=== PATIENT | female | born 1945 | race Caucasian/White ===

== ENCOUNTER 2023-06-19 07:09 | Observation (INO) | payer MEDICARE, OTHER, SELFPAY ==
[2023-06-19] VITALS (24 sets, daily range): BP systolic 120–158; BP diastolic 69–89; PULSE 53–73; RESP 10–21; TEMP 36.2–36.7; O2SAT 94–99; BMI 31.4; BMI 29.5
--- NOTE | 2023-06-19 07:27 | XR_ITS ---
[facility] [place] [id number] Patient Name: SON LONDON MRN: [id number] date: 1945 Sex: F Assigned Patient Location: ER Current Patient Location: ED.MAIN Accession/Order Number: [id number] Exam Date: 06/19/2023 07:34 Report Date: 06/19/2023 08:01 At the request of: ISIDRA PAUL Procedure: XR chest 1V XR chest 1V, 06/19/2023 7:34 AM EST, [place]001 INDICATION: SOB COMPARISON: None TECHNIQUE: Frontal view of the chest obtained. FINDINGS: The heart is borderline enlarged. The aorta and mediastinum appear unremarkable. There is mild central pulmonary vascular congestion. The lungs are clear. There is no evidence of pneumothorax or pleural effusion. The osseous structures appear intact. XR/XR chest 1V IMPRESSION: There is borderline cardiomegaly and mild central pulmonary vascular congestion. No focal infiltrate or consolidation is seen. Electronically authenticated by: BRIANA MOCK Date: 06/19/2023 08:01
--- NOTE | 2023-06-19 07:27 | ECG_ITS ---
[facility] Test Date: 2023-06-19 Pat Name: SON LONDON Department: Room: - Gender: Female Seismograph Computer: : 1945 Requested By: PAT NEWELL Order Number: [id number] Reading MD: PAT NEWELL Measurements Intervals [place] Rate: 59 P: 72 [place]: 164 QRS: 77 QRSD: 76 T: 80 QT: 404 QTc: 403 Interpretive Statements 1100 Sinus rhythm Non-Specific T wave inversion in aVL 9110 normal ECG No previous ECG available for comparison Electronically Signed On 06-20-2023 6:21:43 EST by PAT NEWELL
--- NOTE | 2023-06-19 07:27 | ED.SOB1 ---
HPI - SOB/Dyspnea General Chief Complaint: Shortness of Breath/Dyspnea Stated Complaint: SOB Time Seen by Provider: 06/19/23 07:16 Source: patient Mode of arrival: walk-in Limitations: no limitations History of Present Illness HPI Narrative: 78-year-old female presents for shortness of breath. It began last night. She had a doctor's appointment for a separate issue yesterday, shoulder arthritis. Subsequent to that appointment she developed the shortness of breath. She feels better sitting upright and if she lays down flat she gets more short of breath. She doesn't have chest pain but states that this is how she felt before she needed to stents three years ago. No fever or productive cough. She always has sinus drainage, for over thirty years. No leg swelling and no history of congestive heart failure. Related Data Home Medications Medication Instructions Recorded Confirmed aspirin 81 mg capsule 81 mg PO DAILY 06/19/23 06/19/23 atorvastatin 40 mg tablet 40 mg PO DAILY 06/19/23 06/19/23 escitalopram oxalate 10 mg tablet 10 mg PO DAILY 06/19/23 06/19/23 (Lexapro) furosemide 20 mg tablet 20 mg PO DAILY 06/19/23 06/19/23 hydralazine 25 mg tablet 25 mg PO BID 06/19/23 06/19/23 loperamide 2 mg capsule 2 mg PO DAILY 06/19/23 06/19/23 (Anti-Diarrheal (loperamide)) losartan 100 mg tablet (Cozaar) 100 mg PO DAILY 06/19/23 06/19/23 pantoprazole 40 mg tablet,delayed 40 mg PO DAILY 06/19/23 06/19/23 release potassium chloride 20 mEq oral 20 meq PO DAILY 06/19/23 06/19/23 packet (Klor-Con) vitamin A-vitamin C-vit E-min 1 tab PO DAILY 06/19/23 06/19/23 tablet (Vision tablet) Allergies Allergy/AdvReac Type Severity Reaction Status Date / Time SERINA Inhibitors Allergy Severe Verified 06/19/23 07:21 diltiazem Allergy Severe shortness Verified 06/19/23 07:21 of breath gabapentin [From Neurontin] Allergy Severe Verified 06/19/23 07:21 metoprolol Allergy Severe Verified 06/19/23 07:21 amlodipine AdvReac Severe swelling Verified 06/19/23 07:21 morphine AdvReac Severe Nausea Verified 06/19/23 07:21 Review of Systems ROS Narrative A ten point review of systems is negative except as noted above. Exam Narrative Exam Narrative: Nurses note and vital signs reviewed and patient is not hypoxic. General: The patient appears well and in no apparent distress. Patient is resting comfortably on cart. Skin: Warm, dry, no pallor noted. There is no rash noted. Head: Normocephalic, atraumatic Eye: Normal conjunctiva, no drainage Ears, Nose, Mouth, and Throat: oral mucosa is moist. Nares patent. Cardiovascular: Regular Rate and Rhythm Respiratory: Patient is in no distress, no accessory muscle use, lungs are clear to auscultation, no wheezing, rales or rhonchi, good air movement present Back: non-tender GI: soft and nontender Musculoskeletal: The patient has no evidence of calf tenderness, no pitting edema, symmetrical pulses noted bilaterally Neurological: A&O, normal speech Psychiatric: Cooperative Constitutional Vital Signs, click to edit/add: Last Vital Signs Temp 98.0 F 06/19/23 07:14 Pulse 66 06/19/23 07:14 Resp 18 06/19/23 07:14 BP 158/69 H 06/19/23 07:14 Pulse Ox 98 06/19/23 07:14 O2 Del Method Room Air 06/19/23 07:14 Course Vital Signs Vital signs: Vital Signs Temperature 98.0 F 06/19/23 07:14 Pulse Rate 66 06/19/23 07:14 Respiratory Rate 18 06/19/23 07:14 Blood Pressure 158/69 H 06/19/23 07:14 Pulse Oximetry 98 06/19/23 07:14 Oxygen Delivery Method Room Air 06/19/23 07:14 Temperature 98.0 F 06/19/23 07:14 Pulse Rate 66 06/19/23 07:14 Respiratory Rate 18 06/19/23 07:14 Blood Pressure 158/69 H 06/19/23 07:14 Pulse Oximetry 98 06/19/23 07:14 Oxygen Delivery Method Room Air 06/19/23 07:14 MDM - SOB/Dyspnea MDM Narrative Medical decision making narrative: d-dimmer, troponin, BNP are all negative. Case discussed with her PCP, Dr. Graves, as well as Dr. Avila from cardiology and we will admit the patient here for observation and further workup. Treatment diagnosis and follow-up were discussed with the patient. Differential Diagnosis Differential diagnosis: Likely congestive heart failure, community acquired pneumonia, pulmonary embolism and other (anginal equivalent, myocardial infarction, pneumothorax) Lab Data Attestation: I reviewed the patient's lab results. Labs: Lab Results 06/19/23 06/19/23 Range/Units 07:45 07:50 WBC 9.6 (4.0-11.0) 10^3/uL RBC 4.03 L (4.20-5.40) 10^6/uL Hgb 12.6 (12.0-16.0) g/dL Hct 38.3 (36.0-48.0) % MCV 95.0 (81.0-99.0) fL MCH 31.3 (26.7-34.0) pg MCHC 32.9 (29.9-35.2) g/dL RDW 13.0 (11.0-15.0) % Plt Count 189 (150-450) 10^3/uL MPV 11.3 (9.5-13.5) fL Neut % (Auto) 75.3 H (43.0-75.0) % Lymph % (Auto) 16.9 L (20.5-60.0) % Mccreary % (Auto) 7.4 (1.7-12.0) % Eos % (Auto) 0.0 L (0.9-7.0) % Baso % (Auto) 0.2 (0.2-2.0) % Neut # (Auto) 7.2 H (1.4-6.5) 10^3/uL Lymph # (Auto) 1.6 (1.2-3.8) 10^3/uL Mccreary # (Auto) 0.7 (0.3-0.8) 10^3/uL Eos # (Auto) 0.0 (0.0-0.7) 10^3/uL Baso # (Auto) 0.0 (0.0-0.1) 10^3/uL Abs Immat Gran (auto) 0.02 (0.00-0.03) 10^3/uL Imm/Tot Granulo (auto) 0.2 (0.0-0.5) % D-Dimer 0.42 (<=0.59) mg/L FEU Sodium 139 (136-145) mmol/L Potassium 4.5 (3.5-5.1) mmol/L Chloride 104 (98-107) mmol/L Carbon Dioxide 24.6 (21.0-32.0) mmol/L Anion Gap 14.9 BUN 32.0 H (7.0-18.0) mg/dL Creatinine 1.35 H (0.55-1.02) mg/dL Est GFR ( Amer) 46 L (>=60) Est GFR (Non-Af Amer) 38 L (>=60) BUN/Creatinine Ratio 23.7 Glucose 111 H (74-106) mg/dL Calcium 9.1 (8.5-10.1) mg/dL Troponin I High Sens 5.5 (4.0-51.3) pg/mL NT-Pro-B Natriuret Pep 1700.0 (<=1800.0) pg/mL SARS-CoV-2 (PCR) Negative (NEGATIVE) Imaging Data Chest x-ray: Radiologist's impression: Procedure: XR chest 1V XR chest 1V, 06/19/2023 7:34 AM EST, OH001 INDICATION: SOB COMPARISON: None TECHNIQUE: Frontal view of the chest obtained. FINDINGS: The heart is borderline enlarged. The aorta and mediastinum appear unremarkable. There is mild central pulmonary vascular congestion. The lungs are clear. There is no evidence of pneumothorax or pleural effusion. The osseous structures appear intact. IMPRESSION: There is borderline cardiomegaly and mild central pulmonary vascular congestion. No focal infiltrate or consolidation is seen. Electronically authenticated by: BRIANA MOCK Date: 06/19/2023 08:01 ECG Data Attestation: I personally reviewed and interpreted this ECG as follows: (EKG on my interpretation shows normal sinus rhythm with a rate of 59 and no acute findings.) Discharge Plan Discharge Chief Complaint: Shortness of Breath/Dyspnea Clinical Impression: Dyspnea Patient Disposition: Admitted as Observation Time of Disposition Decision: 09:21 Condition: Good
[2023-06-19 07:55] LABS: Basophils Percent Auto 0.2 % (0.2-2.0); Hematocrit 38.3 % (36.0-48.0); Hemoglobin 12.6 g/dL (12.0-16.0); Immature Granulocytes Abs Auto 0.02 10^3/uL (0.00-0.03); Immature Granulocytes Pct Auto 0.2 % (0.0-0.5); Lymphocytes Absolute Auto 1.6 10^3/uL (1.2-3.8); Lymphocytes Percent Auto 16.9 % (20.5-60.0); Mean Corpuscular HGB Conc 32.9 g/dL (29.9-35.2); Mean Corpuscular Hemoglobin 31.3 pg (26.7-34.0); Mean Platelet Volume 11.3 fL (9.5-13.5); Monocytes Absolute Auto 0.7 10^3/uL (0.3-0.8); Monocytes Percent Auto 7.4 % (1.7-12.0); Neutrophils Absolute Auto 7.2 10^3/uL (1.4-6.5); Neutrophils Percent Auto 75.3 % (43.0-75.0); Platelet Count 189 10^3/uL (150-450); Red Blood Count 4.03 10^6/uL (4.20-5.40); White Blood Count 9.6 10^3/uL (4.0-11.0)
[2023-06-19 08:09] LABS: D Dimer 0.42 mg/L FEU (<=0.59)
[2023-06-19 08:14] LABS: SARS-CoV-2 Ag NEGATIVE (NEGATIVE)
[2023-06-19 08:36] LABS: Anion Gap 14.9; BUN Creatinine Ratio 23.7; Calcium 9.1 mg/dL (8.5-10.1); Carbon Dioxide 24.6 mmol/L (21.0-32.0); Chloride 104 mmol/L (98-107); Estimated GFR (African America 46 (>=60); Estimated GFR (Non-African Ame 38 (>=60); Glucose 111 mg/dL (74-106); Potassium 4.5 mmol/L (3.5-5.1); Sodium 139 mmol/L (136-145); Troponin I High Sensitivity 5.5 pg/mL (4.0-51.3)
[2023-06-19 11:03] LABS: SARS-CoV-2 NAA NOT DETECTED (NOT DETECTE)
--- NOTE | 2023-06-19 11:29 | CA_ITS ---
Patient Name: SON WILEY MR#: [id number] : 1945 Exam Date: 06/19/2023 Ordering Doctor: DR Demarco Graves . ECHOCARDIOGRAM REPORT PROCEDURE: CA ECHO DOPPLER COMPLETE INDICATIONS: Dyspnea, PTCA, hypertension COMPARISON: None. DESCRIPTION: COMPLETE ECHOCARDIOGRAM Real-time transthoracic echocardiography with 2D, M-mode, spectral and color flow Doppler performed. QUALITY: Technical quality was good. LEFT VENTRICLE: Normal chamber size. Thickened septal wall. LV EF: Global left ventricular systolic function is normal; visually estimated ejection fraction is 60 to 65%. No significant wall motion abnormalities. DIASTOLIC: Grade II diastolic dysfunction. ATRIAL SEPTUM: Visually appears intact. LEFT ATRIUM: Moderate dilatation. RIGHT ATRIUM: Normal chamber size. RIGHT VENTRICLE: Normal chamber size. Normal right ventricular systolic function. TRICUSPID VALVE: Normal mobility and thickness. Mild regurgitation. Doppler studies reveal moderately (45-60) elevated right sided pressures. RVSP 59 mmHg MITRAL VALVE: Mildly thickened with normal mobility. No evidence of mitral valve stenosis. Moderate to severe mitral regurgitation. AORTIC VALVE: Normal trileaflet appearance. No visible sclerosis. Normal leaflet mobility. No evidence of aortic valve stenosis. Mild aortic regurgitation. AORTIC ROOT: Normal diameter and appearance. PULMONIC VALVE: Normal thickness and mobility. No stenosis. Trivial regurgitation. PERICARDIUM: No evidence of pericardial effusion. IVC: IVC is dilated (2.4 cm) with no collapse. CONCLUSION: 1. Global left ventricular systolic function is normal; visually estimated ejection fraction is 60 to 65% 2. Right ventricle is normal in size and systolic function 3. Grade 2, moderate diastolic dysfunction 4. The left atrium is moderately dilated 5. Mild tricuspid regurgitation 6. Moderately elevated right ventricular systolic pressure; RVSP 59 mmHg 7. Moderate to severe mitral regurgitation 8. Mild aortic regurgitation Adult Echocardiography Procedure Report Left Ventricle LVEDD (3.7 - 5.6 cm): 3.77 cm LVESD (2.2 - 4.0 cm): 2.51 cm LVIVS thickness (0.6 - 1.2 cm): 1.59 cm LVPW thickness (0.5 - 1.0 cm): 0.90 cm e': 0.07 m/s E - e': 18.63 LVOT Max Gradient: 4.25 mm[Hg] LVOT Area (cm2): 1.03 m/s Peak Velocity (LVOT): 1.03 m/s Mean Velocity (LVOT): 0.70 m/s LVOT Diameter 1.88 cm Left Atrium LA Volume Index (2D A2C): 41.72 ml/m2 Left Atrium Systolic Dimension: 4.02 cm Mitral Valve MV E to A Ratio: 1.47 Mitral Valve A-Wave Peak Velocity: 0.86 m/s Mitral Valve E-Wave Peak Velocity: 1.27 m/s Right Ventricle Aorta AO Root Diam: 3.38 cm Ascending Ao Diam: 2.88 cm Aortic Valve AoV Area (Peak Eric): 2.19 cm2, 2.19 cm2 AoV Area (VTI): 2.13 cm2, 2.13 cm2 Peak Velocity(Antegrade Flow): 1.30 m/s Peak Gradient(Antegrade Flow): 6.75 mm[Hg] Mean Velocity(Antegrade Flow): 0.91 m/s Mean Gradient(Antegrade Flow): 3.70 mm[Hg] Velocity Time Integral: 31.51 cm Tricuspid Valve Peak Velocity (Regurgitant Flow): 2.47 m/s, 3.32 m/s Pulmonic Valve Peak Velocity: 0.73 m/s Peak Gradient: 2.17 mm[Hg], 2.11 mm[Hg] Right Atrium Right Atrium Systolic Pressure: 23.27 ml, 23.27 ml Dictated by: Rebeka Johnson M.D. on 06/19/2023 at 14:06 Approved by: Rebeka Johnson M.D. on 06/19/2023 at 14:10
[2023-06-19 12:35] LABS: Magnesium 1.9 mg/dL (1.8-2.4); Troponin I High Sensitivity 5.8 pg/mL (4.0-51.3)
[2023-06-19 12:47] LABS: Free T3 1.63 pg/mL (2.18-3.98); Thyroid Stimulating Hormone 1.016 uIU/mL (0.358-3.740)
[2023-06-19] MEDS: BENZONATATE 100 MG CAPSULE 200 MG PO ×2 (14:39→21:02)
[2023-06-19] MEDS: PANTOPRAZOLE SODIUM 40 MG VIAL IV (14:39)
[2023-06-19 14:58] LABS: Troponin I High Sensitivity 6.3 pg/mL (4.0-51.3)
--- NOTE | 2023-06-19 17:48 | P.HP_ITS ---
H&P: HPI History of Present Illness Chief complaint: SOB, DYSPNEA Narrative: Patient presented to the emergency with increasing shortness of breath. Initial work-up was unremarkable but patient did state her symptoms felt just like when she had her stents placed. Case was discussed with cardiology at [facility] who recommended patient be observed overnight for serial cardiac markers, echocardiogram, possible stress test as if available. Patient admitted to ICU per protocol Review of Systems ROS Status of ROS 10 or more systems reviewed and unremarkable except as noted in history and below Meds Home Medications and Allergies Home Medications Medication Instructions Recorded Confirmed Type aspirin 81 mg capsule 81 mg PO DAILY 06/19/23 06/19/23 History atorvastatin 40 mg tablet 40 mg PO DAILY 06/19/23 06/19/23 History escitalopram oxalate 10 mg tablet 10 mg PO DAILY 06/19/23 06/19/23 History (Lexapro) furosemide 20 mg tablet 20 mg PO DAILY 06/19/23 06/19/23 History hydralazine 25 mg tablet 25 mg PO BID 06/19/23 06/19/23 History loperamide 2 mg capsule 2 mg PO DAILY 06/19/23 06/19/23 History (Anti-Diarrheal (loperamide)) losartan 100 mg tablet (Cozaar) 100 mg PO DAILY 06/19/23 06/19/23 History pantoprazole 40 mg tablet,delayed 40 mg PO DAILY 06/19/23 06/19/23 History release potassium chloride 20 mEq oral 20 meq PO DAILY 06/19/23 06/19/23 History packet (Klor-Con) vitamin A-vitamin C-vit E-min 1 tab PO DAILY 06/19/23 06/19/23 History tablet (Vision tablet) Allergies Allergy/AdvReac Type Severity Reaction Status Date / Time SERINA Inhibitors Allergy Severe Verified 06/19/23 07:21 diltiazem Allergy Severe shortness Verified 06/19/23 07:21 of breath gabapentin [From Neurontin] Allergy Severe Verified 06/19/23 07:21 metoprolol Allergy Severe Verified 06/19/23 07:21 amlodipine AdvReac Severe swelling Verified 06/19/23 07:21 morphine AdvReac Severe Nausea Verified 06/19/23 07:21 Exam Constitutional Vital Signs, click to edit/add: Last Vital Signs Temp 97.2 F L 06/19/23 11: Pulse 73 06/19/23 16:00 Resp 18 06/19/23 16:00 BP 137/89 06/19/23 16:00 Pulse Ox 96 06/19/23 16:00 O2 Del Method Room Air 06/19/23 16:00 Documenting provider has reviewed patient's vital signs: yes Common normals: no apparent distress HENMA Common normals: normocephalic Chest Common normals: inspection of chest normal Respiratory Common normals: normal respiratory effort, no retractions and clear to auscultation bilaterally Cardio Common normals: regular rhythm; irregular rate Rate: bradycardic GI Common normals: Normal to inspection, nondistended, normoactive bowel sounds present Results Labs Labs: Short CBC 06/19/23 Range/Units 07:45 WBC 9.6 (4.0-11.0) 10^3/uL Hgb 12.6 (12.0-16.0) g/dL Hct 38.3 (36.0-48.0) % Plt Count 189 (150-450) 10^3/uL BMP 06/19/23 07:50 Sodium 139 Potassium 4.5 Chloride 104 Carbon Dioxide 24.6 BUN 32.0 H Creatinine 1.35 H Glucose 111 H Calcium 9.1 Assessment and Plan Assessment and Plan (1) Dyspnea: Plan Controlled hypertension, shortness of breath, sinus bradycardia secondary to possible angina, unstable-check echocardiogram, cardiac markers, repeat cardiac markers in a.m., stress test if possible tomorrow in a.m. Hypothyroidism-T3 is low so we will supplement Hypertension-add Imdur, held off on beta-blockers secondary to already bradycardic. Possible mild heart failure based on chest x-ray findings of the lungs are fairly clear, BNP has increased. Give oral Lasix today repeat in a.m. Maintain patient observation status, change patient to inpatient status based on testing if necessary.
[2023-06-19] MEDS: ISOSORBIDE MONONITRATE 30 MG TAB.ER.24H PO (18:17)
[2023-06-19] MEDS: LIOTHYRONINE SODIUM 5 MCG TABLET PO (18:18)
[2023-06-19] MEDS: HYDRALAZINE HCL 25 MG TABLET PO (21:02)
[2023-06-19] MEDS: PROSTAT 15 GM PROTEIN/100 CAL 30 ML LIQUID PACKET PO (21:02)
[2023-06-20 00:05] VITALS: BP 126/89; PULSE 52; RESP 18; TEMP 36.6; O2SAT 95
[2023-06-20 00:12] VITALS: PULSE 59; RESP 18
[2023-06-20] MEDS: ACETAMINOPHEN 500 MG TABLET 1000 MG PO (02:07)
[2023-06-20 04:09] VITALS: PULSE 59; RESP 18
[2023-06-20 04:20] VITALS: O2SAT 95
[2023-06-20 04:23] LABS: Basophils Percent Auto 0.1 % (0.2-2.0); Hemoglobin 11.5 g/dL (12.0-16.0); Immature Granulocytes Abs Auto 0.04 10^3/uL (0.00-0.03); Immature Granulocytes Pct Auto 0.5 % (0.0-0.5); Lymphocytes Absolute Auto 1.5 10^3/uL (1.2-3.8); Mean Corpuscular HGB Conc 32.9 g/dL (29.9-35.2); Mean Corpuscular Hemoglobin 31.9 pg (26.7-34.0); Mean Corpuscular Volume 97.2 fL (81.0-99.0); Monocytes Absolute Auto 0.8 10^3/uL (0.3-0.8); Monocytes Percent Auto 9.8 % (1.7-12.0); Neutrophils Absolute Auto 6.3 10^3/uL (1.4-6.5); Neutrophils Percent Auto 72.6 % (43.0-75.0); Platelet Count 194 10^3/uL (150-450); Red Cell Distribution Width 13.2 % (11.0-15.0); White Blood Count 8.6 10^3/uL (4.0-11.0)
[2023-06-20 04:54] LABS: Anion Gap 9.7; Calcium 9.1 mg/dL (8.5-10.1); Chloride 103 mmol/L (98-107); Estimated GFR (African America 41 (>=60); Estimated GFR (Non-African Ame 34 (>=60); Glucose 133 mg/dL (74-106); Potassium 4.7 mmol/L (3.5-5.1); Sodium 134 mmol/L (136-145)
[2023-06-20 04:55] LABS: Troponin I High Sensitivity 5.1 pg/mL (4.0-51.3)
[2023-06-20 05:14] VITALS: BP 115/62; PULSE 58; TEMP 36.6; O2SAT 94
[2023-06-20] MEDS: BENZONATATE 100 MG CAPSULE 200 MG PO (06:19)
--- NOTE | 2023-06-20 07:34 | P.DS_ITS ---
DS: Providers Provider Date of admission: 06/19/23 09:18 Primary care physician: Demarco Graves MD Consults: 06/19/23 11:29 Consult to Cardiology Routine Reason for consultation: cad Has provider been notified: No DS: Diagnosis Discharge Diagnosis (1) Dyspnea: DS: Summary Hospital Course Hospital Course: Patient was seen and evaluated in the emergency room with increasing shortness of breath. She does describe that sensation in her chest similar to when she had her previous cardiac stents placed. No other changes in medications. Initial work-up in ER was unremarkable. With her significant history of coronary artery disease and sensation similar to previous episode she was admitted overnight for observation. Cardiac markers with high-sensitivity troponin showed no elevation. Echocardiogram shows mitral regurgitation with a good ejection fraction. She had no further episodes while she was in the hospital. She was placed on Imdur. Only other significant finding was low T3. She was started on Cytomel. At this point she feels back to her normal self. We will echocardiogram being unremarkable other than the mitral regurgitation we will send patient to home today with plan for seeing me in the office next week for an outpatient stress test. Medications see list. Time Spent with Patient Time attestation: Total time spent providing and/or coordinating discharge services: Exam Constitutional Vital Signs, click to edit/add: Last Vital Signs Temp 98 F 06/20/23 05:14 Pulse 58 L 06/20/23 05:14 Resp 18 06/20/23 04:09 BP 115/62 06/20/23 05:14 Pulse Ox 94 L 06/20/23 05:14 O2 Del Method Room Air 06/20/23 05:14 Documenting provider has reviewed patient's vital signs: yes Common normals: no apparent distress [facility] Common normals: normocephalic Chest Common normals: inspection of chest normal Respiratory Common normals: normal respiratory effort, no retractions and clear to auscultation bilaterally Cardio Common normals: regular rhythm; irregular rate Rate: bradycardic GI Common normals: Normal to inspection, nondistended, normoactive bowel sounds present DS: Data Data Completed and Pending Labs on day of discharge: Labs from last 24 hours 06/20/23 06/19/23 06/19/23 04:10 14:35 12:02 WBC 8.6 RBC 3.60 L Hgb 11.5 L Hct 35.0 L MCV 97.2 MCH 31.9 MCHC 32.9 RDW 13.2 Plt Count 194 MPV 11.0 Neut % (Auto) 72.6 Lymph % (Auto) 17.0 L [place] % (Auto) 9.8 Eos % (Auto) 0.0 L Baso % (Auto) 0.1 L Neut # (Auto) 6.3 Lymph # (Auto) 1.5 [place] # (Auto) 0.8 Eos # (Auto) 0.0 Baso # (Auto) 0.0 Abs Immat Gran (auto) 0.04 H Imm/Tot Granulo (auto) 0.5 D-Dimer Sodium 134 L Potassium 4.7 Chloride 103 Carbon Dioxide 26.0 Anion Gap 9.7 BUN 33.0 H Creatinine 1.50 H Est GFR ( Amer) 41 L Est GFR (Non-Af Amer) 34 L BUN/Creatinine Ratio 22.0 Glucose 133 H Calcium 9.1 Magnesium 1.9 Troponin I High Sens 5.1 6.3 5.8 NT-Pro-B Natriuret Pep 1998.0 H* 1998.0 H* TSH 1.016 Thyroxine (T4) 8.30 Free T3 1.63 L SARS-CoV-2 (PCR) SARS-CoV-2 RNA (ERICK) 06/19/23 06/19/23 07:50 07:45 WBC 9.6 RBC 4.03 L Hgb 12.6 Hct 38.3 MCV 95.0 MCH 31.3 MCHC 32.9 RDW 13.0 Plt Count 189 MPV 11.3 Neut % (Auto) 75.3 H Lymph % (Auto) 16.9 L [place] % (Auto) 7.4 Eos % (Auto) 0.0 L Baso % (Auto) 0.2 Neut # (Auto) 7.2 H Lymph # (Auto) 1.6 [place] # (Auto) 0.7 Eos # (Auto) 0.0 Baso # (Auto) 0.0 Abs Immat Gran (auto) 0.02 Imm/Tot Granulo (auto) 0.2 D-Dimer 0.42 Sodium 139 Potassium 4.5 Chloride 104 Carbon Dioxide 24.6 Anion Gap 14.9 BUN 32.0 H Creatinine 1.35 H Est GFR ( Amer) 46 L Est GFR (Non-Af Amer) 38 L BUN/Creatinine Ratio 23.7 Glucose 111 H Calcium 9.1 Magnesium Troponin I High Sens 5.5 NT-Pro-B Natriuret Pep 1700.0 TSH Thyroxine (T4) Free T3 SARS-CoV-2 (PCR) Negative SARS-CoV-2 RNA (ERICK) Not detected Discharge Plan Discharge Disposition: Home, Self-Care Condition: Good Discharge Medications: New isosorbide mononitrate 30 mg Tablet Extended Release 24 Hr 30 mg PO Q24H Qty: 30 11RF liothyronine 5 mcg Tablet 5 mcg PO QD Qty: 30 11RF benzonatate 200 mg capsule 200 mg PO TID PRN (Reason: cough) Qty: 60 11RF Continued losartan [Cozaar] 100 mg tablet 100 mg PO DAILY pantoprazole 40 mg tablet,delayed release (DR/EC) 40 mg PO DAILY aspirin 81 mg capsule 81 mg PO DAILY hydralazine 25 mg tablet 25 mg PO BID loperamide [Anti-Diarrheal (loperamide)] 2 mg capsule 2 mg PO DAILY escitalopram oxalate [Lexapro] 10 mg tablet 10 mg PO DAILY atorvastatin 40 mg tablet 40 mg PO DAILY Vision Tablet 1 tab PO DAILY Discontinued furosemide 20 mg tablet 20 mg PO DAILY potassium chloride [Klor-Con] 20 mEq packet 20 meq PO DAILY Activity: increase activity as tolerated Diet: advance to your usual diet Patient Instructions: Isosorbide Mononitrate (By mouth) (Imdur, Imdur ER, Ismo), Liothyronine (By mouth), Coronary Artery Disease (DC), Dyspnea (DC) Forms: Portal Instructions
[2023-06-20] MEDS: LOSARTAN POTASSIUM 50 MG TABLET 100 MG PO (08:37)
[2023-06-20] MEDS: ATORVASTATIN CALCIUM 40 MG TABLET PO (08:37)
[2023-06-20] MEDS: ASPIRIN 81 MG TAB.CHEW PO (08:37)
[2023-06-20] MEDS: ESCITALOPRAM 10 MG TABLET PO (08:37)
[2023-06-20] MEDS: FUROSEMIDE 20 MG TABLET PO (08:37)
[2023-06-20] MEDS: HYDRALAZINE HCL 25 MG TABLET PO (08:37)
[2023-06-20] MEDS: VITS A,C,E/LUTEIN/MINERALS 1 TABLET 1 TAB PO (08:37)
[2023-06-20] MEDS: POTASSIUM CHLORIDE 10 MEQ ER TABLET 20 MEQ PO (08:37)
[2023-06-20] MEDS: LIOTHYRONINE SODIUM 5 MCG TABLET PO (08:37)
[2023-06-20] MEDS: LOPERAMIDE HCL 2 MG CAPSULE PO (08:37)
[2023-06-20 08:39] VITALS: BP 117/61; PULSE 58; RESP 18; O2SAT 96
[2023-06-20] MEDS: PNEUMOCOCCAL 23 VACCINE 25 MCG/0.5 ML SYRINGE IM (09:33)
== END 2023-06-20 10:13 | disposition home or self-care (01) ==
LOC: ER 10:03 → ICU 10:11
PROVIDERS: Admitting Provider Family Medicine; Emergency Provider Emergency Medicine; PCP Family Medicine; Visit Provider Family Medicine
DX: R06.00 Dyspnea, unspecified (principal); R00.1 Bradycardia, unspecified; I10 Essential (primary) hypertension; E03.9 Hypothyroidism, unspecified; Z79.82 Long term (current) use of aspirin; I25.10 Atherosclerotic heart disease of native coronary artery without angina pectoris; Z95.5 Presence of coronary angioplasty implant and graft; Z79.899 Other long term (current) drug therapy; Z20.822 Contact with and (suspected) exposure to COVID-19; Z23 Encounter for immunization
CPT/HCPCS: 36415; 71045; 80048; 83735; 83880; 84436; 84443; 84481; 84484; 85025; 85378; 87635; 87811; 90662; 90732; 93005; 93306; 94667; 94761; 96374; 99285; G0008; G0009; G0378

== ENCOUNTER 2023-07-09 16:25 | Outpatient (RCR) | payer MEDICARE, OTHER, SELFPAY | END 2023-07-10 15:10 | disposition home or self-care (01) | LOC: PT 16:25 | PROVIDERS: PCP Family Medicine; Visit Provider Family Medicine | DX: R42 Dizziness and giddiness (principal) | CPT/HCPCS: 97112; 97162 ==

== ENCOUNTER 2023-07-14 07:25 | Outpatient (OUT) | payer MEDICARE, OTHER, SELFPAY ==
--- NOTE | 2023-07-14 | NM_ITS ---
Patient Name: SON WILEY MR#: [id number] : 1945 Exam Date: 07/14/2023 Ordering Doctor: DR Demarco Graves . RADIOLOGY REPORT PROCEDURE: NM LEENA PERF SPECT REST STR COMPARISON: None. INDICATIONS: CORONARY ARTERY DISEASE TECHNIQUE: Exam Description: Stress/Rest one day protocol gated SPECT Rest Imagin.2 mCi Tc-99m Cardiolite IV on 07/14/2023 Stress Imaging 29.8 mCi Tc-99m Cardiolite IV on 07/14/2023 Exercise Protocol: 0.4 mg Lexiscan given IV Heart Rate (bpm): Rest: 63 Max: 92 PMHR: 64 Blood Pressure: Rest: 144/42 Max: 144/72 Symptoms: Rest and peak stress ECG findings were pending and the exercise portion of the study was pending per attending physician Dr. Chapman . For more details please see separate cardiac stress test report. FINDINGS: QUALITY OF STUDY: Excellent. PERFUSION DEFECT: None. LOCATION: N/A SIZE: N/A. SEVERITY: N/A. TYPE: N/A. WALL MOTION: Normal. LV SIZE: Normal. 54 mL. TID / TCD: None; 0.8 LVEF: Normal. Calculated EF 89%. SUMMARY: Myocardial perfusion imaging study is NORMAL. CONCLUSION: 1. Normal nuclear medicine myocardial perfusion scan. Dictated by: Johnathan Mejia M.D. on 07/15/2023 at 08:03 Approved by: Johnathan Mejia M.D. on 07/15/2023 at 09:04
[2023-07-14] MEDS: REGADENOSON 0.4 MG/5 ML SYRINGE IV (08:21)
--- NOTE | 2023-07-17 | PCN_ITS ---
CARDIAC STRESS TEST Requesting Physician: Procedure Date: 07/17/2023 INDICATION: Coronary artery disease. METHODS: After risks, benefits and alternatives were explained, written informed consent was obtained. The patient was brought to the stress lab in a resting, fasting state. She was connected to the appropriate hemodynamic and electrocardiographic monitoring. Lexiscan 0.4 mg was infused intravenously. She was monitored for the standard duration and discharged in a stable state. There were no complications. FINDINGS HEMODYNAMICS: Resting blood pressure was 144/72 with a low blood pressure of 130/72. Resting heart rate was 63 beats per minute, increasing to a maximum of 92 beats per minute. No significant symptoms were reported. ELECTROCARDIOGRAPHY REST EKG: Sinus rhythm, 62 beats per minute, non-specific ST-T wave changes. DURING INFUSION AND RECOVERY: There are horizontal ST depressions seen in leads 2, 3, AVF, V4, V5 and V6. These resolve by the completion of the test. FINAL IMPRESSIONS: 1. Equivocal EKG changes seen on Lexiscan infusion. 2. Nuclear images are to be read, interpreted, and reported in a separate dictation. [facility] [place]
== END 2023-07-14 07:26 | disposition home or self-care (01) ==
LOC: NM 07:25
PROVIDERS: PCP Family Medicine; Visit Provider Family Medicine
DX: I25.10 Atherosclerotic heart disease of native coronary artery without angina pectoris (principal)
CPT/HCPCS: 78452; 93017; A9500; J2785

== ENCOUNTER 2023-08-07 08:53 | Outpatient (REF) | payer MEDICARE, OTHER, SELFPAY ==
--- OUTSIDE RECORDS SUMMARY | 2023-08-07 08:56 | XMS_ITS | CCD ---
Author Name Unknown Address [address] [place] [address] Organization [facility] Care Team Providers Care Retirement Consultant Name Role Phone ASHLEY, FAN H. Referring Unavailable HOPAT Soto M Primary Care Unavailable RICKI KWOK Referring Unavailable HOBrittany, PAT M Primary Care Unavailable ASHLEY, FAN H. Attending Unavailable ASHLEY, FAN H. Referring Unavailable HOBrittany, PAT M Primary Care Unavailable ASHLEY, FAN H. Admitting Unavailable ASHLEY, FAN H. Attending Unavailable ASHLEY, FAN H. Referring Unavailable HOY, PAT M Primary Care Unavailable ASHLEY, FAN H. Attending Unavailable ASHLEY, FAN H. Referring Unavailable HOBrittany, PAT M Primary Care Unavailable SCULLIN, CHRISTIE Admitting Unavailable SCULLIN, CHRISTIE Attending Unavailable HOBrittany, PAT M Primary Care Unavailable MJ COLON Consulting Unavailable ASHLEY, FAN H. Consulting Unavailable CLARK SANDERS Consulting Unavailable FRANCIS HOLGUIN Consulting Unavailable HOBrittany PAT Primary Care Unavailable UNKNOWN, PROVIDER Attending Unavailable UNKNOWN, PROVIDER Admitting Unavailable SELF, REFERRED Referring Unavailable HOBrittany PAT Primary Care Unavailable UNKNOWN, PROVIDER Attending Unavailable UNKNOWN, PROVIDER Admitting Unavailable SELF, REFERRED Referring Unavailable Pat Newell MD Primary Care Provider Pat Newell MD Primary Care Provider Pat Newell MD Primary Care Provider [phone] MD Pat Newell Primary Care Provider [phone] MD Pat Newell Referring Provider [phone] Self, Referral Attending Provider Unavailable Pat Newell MD Primary Care Provider MYLENE ALMEIDA Referring Unavailable HOPAT Soto M Primary Care Unavailable PAT NEWELL M Primary Care Unavailable ELLE, MYLENE Attending Unavailable ELLE, MYLENE Admitting Unavailable ELLE, MYLENE Attending Unavailable HOY, PAT M Primary Care Unavailable ELLE, MYLENE Referring Unavailable ELLE, MYLENE Referring Unavailable ELLE, MYLENE Admitting Unavailable ELLE, MYLENE Attending Unavailable HOY, PAT M Primary Care Unavailable HOY, PAT M Primary Care Unavailable ELLE, MYLENE Referring Unavailable STEPH MURPHY Attending Unavaila ble HOY, PAT M Primary Care Unavailable ELLE, MYLENE Attending Unavailable ELLE, MYLENE Referring Unavailable ELLE, MYLENE Attending Unavailable HOY, PAT M Primary Care Unavailable ELLE, MYLENE Referring Unavailable NAILA CEDILLO Attending Unavailable HOY, PAT M Primary Care Unavailable ELLE, MYLENE Referring Unavailable ELLE, MYLENE Referring Unavailable HOY, PAT M Primary Care Unavailable HOY ., DR STEWART Admitting Unavailable HOY ., DR STEWART Attending Unavailable HOY ., DR STEWART Primary Care Unavailable HOY ., DR STEWART Consulting Unavailable MOUKARBEL, DR ALONZO Admitting Unavailable MOUKARBEL, DR ALONZO Attending Unavailable HOY ., DR STEWART Primary Care Unavailable MOUKARBEL, DR ALONZO Consulting Unavailable MOUKARBEL, DR ALONZO Admitting Unavailable MOUKARBEL, DR ALONZO Attending Unavailable HOY ., DR STEWART Primary Care Unavailable MOUKARBEL, DR ALONZO Consulting Unavailable HOY ., DR STEWART Admitting Unavailable HOY ., DR STEWART Attending Unavailable HOY ., DR STEWART Primary Care Unavailable HOY ., DR STEWART Consulting Unavailable MADELYN DICKSON Admitting Unavailable MADELYN DICKSON Attending Unavailable STEFANOY ., DR STEWART Primary Care Unavailable MADELYN DICKSON Consulting Unavailable MD Pat Newell Primary Care Provider [phone] MD Pat Newell Referring Provider [phone] Self, Referral Attending Provider Unavailable Self, Referral Attending Unavailable Pat Newell Primary Care Unavailable Pat Newell Referring Unavailable Self, Referral Admitting Unavailable MOUKACLINTON ENGEL Attending Unavailable DINORAH MONTES Attending Unavailable Allergies Allergy Classification Reported Allergen(s) Allergy Type Date of Onset Reaction(s) Facility Angiotensin Converting Enzyme (SERINA) Inhibitors (1 source) Angiotensin Converting Enzyme (Serina) Inhibitors Drug Allergy 04-04-2020 [facility] Repository Opioid Agonists (2 sources) Codeine; Translations: [morphine] Drug Allergy 04-04-2020 [facility] (5 sources) Angiotensin-conv erting enzyme inhibitor agent; Translations: [SERINA INHIBITORS] Drug Allergy 04-28-2012 [facility] (9 sources) Codeine; Translations: [CODEINE] Drug Allergy 04-28-2012 [facility] (8 sources) HYDROmorphone; Translations: [HYDROMORPHONE (BULK)] Drug Allergy 05-12-2012 Vomiting [facility] (6 sources) Angiotensin-conv erting enzyme inhibitor agent Drug Allergy 04-28-2012 [facility] (6 sources) amLODIPine; Translations: [AMLODIPINE] Drug Allergy 04-24-2022 [facility] (3 sources) Acetaminophen; Translations: [acetaminophen] Drug Allergy 07-28-2017 [facility] (3 sources) HYDROcodone; Translations: [hydrocodone] Drug Allergy 07-28-2017 [facility] (4 sources) Meperidine; Translations: [meperidine] Drug Allergy 07-28-2017 [facility] (5 sources) Morphine; Translations: [morphine] Drug Allergy 07-28-2017 [facility] (1 source) Angiotensin Converting Enzyme (Serina) Inhibitors Drug allergy (disorder) 04-22-2013 [facility] (1 source) Codeine Drug Allergy 04-29-2013 [facility] (1 source) Meperidine Drug Allergy 04-29-2013 [facility] (1 source) Angiotensin Converting Enzyme (Serina) Inhibitors Drug allergy (disorder) 07-28-2017 [facility] Repository (1 source) Amoxicillin; Translations: [AMOXICILLIN] Drug Allergy 03-13-2023 [facility] Repository (1 source) gabapentin; Translations: [GABAPENTIN] Drug Allergy 05-25-2019 [facility] Repository Medications Current Medications Medication Drug Class(es) Dates Sig (Normalized) Sig (Original) amLODIPine 5 mg oral tablet (4 sources) Dihydropyridine Calcium Channel Ken Start: 03-18-2012 End: 03-07-2022 take 5 mg by mouth once daily Amlodipine Active 5 MG PO Daily July 28, 2017 1:00am Comment on above: once daily. atorvastatin 10 mg oral tablet (9 sources) HMG-CoA Reductase Inhibitor Start: 07-28-2017 take 10 mg by mouth at bedtime Atorvastatin Active 10 MG PO Bedtime July 28, 2017 1:00am Comment on above: Take 10 mg by mouth once daily. baclofen 20 mg oral tablet (2 sources) gamma-Aminobutyric Acid-ergic Agonist Start: 07-28-2017 take 20 mg by mouth twice daily Baclofen Active 20 MG PO Twice daily July 28, 2017 1:00am benoxinate hydrochloride 4 mg/ml / fluorescein sodium 2.5 mg/ml ophthalmic solution (1 source) Diagnostic Dye Start: 10-10-2022 End: 10-10-2022 fluorescein-benox inate 0.25-0.4 % 1 Drop (FLURESS) cephalexin 500 mg oral capsule (2 sources) Cephalosporin Antibacterial Start: 07-29-2017 take 1 capsule by mouth every eight hours Cephalexin (Keflex) 500 mg capsule Active 500 MG PO Q8H 21 July 29, 2017 1:00am docusate sodium 50 mg / sennosides, senior care 8.6 mg oral tablet (2 sources) Start: 07-29-2017 take 2 tablets by mouth twice daily Sennosides-Docusa te Sodium (Dok Plus) 8.6-50 mg Tablet Active 2 TAB PO Twice daily 40 July 29, 2017 1:00am FLUoxetine 20 mg oral capsule (4 sources) Serotonin Reuptake Inhibitor Start: 03-18-2012 End: 03-07-2022 take 20 mg by mouth once daily Fluoxetine Active 20 MG PO Daily July 28, 2017 1:00am Comment on above: once daily. losartan potassium 50 mg oral tablet (11 sources) Angiotensin 2 Receptor Ken Start: 07-28-2017 take 25 mg by mouth at bedtime Losartan Active 25 MG PO Bedtime July 28, 2017 1:00am Start: 07-28-2017 take 50 mg by mouth once daily Losartan Active 50 MG PO Daily July 28, 2017 1:00am take 2 tablets by mo uth once daily losartan (COZAAR) 50 mg tablet Take 100 mg by mouth once daily. 0 Active Comment on above: Take 50 mg by mouth once daily. Take 100 mg by mouth once daily. phenylephrine hydrochloride 25 mg/ml ophthalmic solution (1 source) alpha-1 Adrenergic Agonist Start: 10-10-2022 End: 10-10-2022 PHENYLephrine 2.5 % 1 Drop (AK-DILATE, ROBERT-SYNEPHRINE) proparacaine hydrochloride 5 mg/ml ophthalmic solution (1 source) Local Anesthetic Start: 10-10-2022 End: 10-10-2022 proparacaine 0.5 % 1 Drop (ALCAINE) tropicamide 10 mg/ml ophthalmic solution (1 source) Anticholinergic Start: 10-10-2022 End: 10-10-2022 tropicamide 1 % 1 Drop (MYDRIACYL) Completed/Discontinued Medications Medication Drug Class(es) Dates Sig (Normalized) Sig (Original) aspirin 81 mg oral tablet (6 sources) Platelet Aggregation Inhibitor, Nonsteroidal Anti-inflammatory Drug aspirin 81 mg cap Take by mouth. 0 Active Comment on above: Take by mouth. celecoxib 200 mg oral capsule (2 sources) Nonsteroidal Anti-inflammatory Drug Start: 07-28-2017 End: 07-29-2017 take 200 mg by mouth once daily Celecoxib Discontinued 200 MG PO Daily July 28, 2017 1:00am July 29, 2017 6:21pm cyclobenzaprine hydrochloride 5 mg oral tablet (6 sources) Muscle Relaxant Start: 02-08-2022 take 1 tablet by mouth once daily at bedtime cyclobenzaprine (FLEXERIL) 5 mg tablet Take 5 mg by mouth daily at bedtime. 0 02/08/2022 Active Comment on above: Take 5 mg by mouth d aily at bedtime. furosemide 20 mg oral tablet (6 sources) Loop Diuretic furosemide (LASI X) 20 mg tablet Take 20 mg by mouth. 0 Active Comment on above: Take 20 mg by mouth. hydrALAZINE hydrochloride 25 mg oral tablet (6 sources) Arteriolar Vasodilator hydrALAZINE (APRESOLINE) 25 mg tablet Take 25 mg by mouth. 0 Active Comment on above: Take 25 mg by mouth. ketorolac tromethamine 5 mg/ml ophthalmic solution (4 sources) Nonsteroidal Anti-inflammatory Drug, Cyclooxygenase Inhibitor Start: 04-30-2022 End: 10-10-2022 keTORolac (ACULAR) 0.5 % ophthalmic solution USE DIRECTED BY PHYSICIAN, IN OPERATIVE EYE, BEGINNING ONE DAY AFTER SURGERY 5 mL 0 05/14/2022 10/10/2022 Discontinued (Course of therapy completed) Comment on above: USE DIRECTED BY Star COE, IN OPERATIVE EYE, BEGINNING ONE DAY AFTER SURGERY Multivitamin capsule (7 sources) take 1 capsule by mouth once daily Multivitamin capsule Take 1 capsule by mouth once daily. 0 Active Comment on above: Take 1 capsule by [facility] once daily. Naproxen (2 sources) Nonsteroidal Anti-inflammatory Drug End: 03-07-2022 NAPROXEN SODIUM (ALEVE ORAL) Take by mouth. 0 03/07/2022 Discontinued (Discontinued by Patient) NAPROXEN SODIUM (ALEVE ORAL) Take by mouth. 0 Active Comment on above: Take by mouth. niacin 500 mg oral tablet (2 sources) Nicotinic Acid End: 03-07-2022 niacin, inositol niacinate, 500 mg tab Take by mouth. 0 03/07/2022 Discontinued (Discontinued by Patient) Comment on above: Take by mouth. pantoprazole 40 mg extended release oral tablet (6 sources) Proton Pump Inhibitor pantoprazo le sodium (PANTOPRAZOLE ORAL) Take 40 mg by mouth. 0 Active Comment on above: Take 40 mg by mouth. microencapsulated potassium chloride 10 meq extended release oral tablet (6 sources) Start: 01-23-2022 potassium chloride ER (K-DUR, KLOR-CON) 10 mEq tablet Take 10 mEq by mouth twice daily. 0 01/23/2022 Active Comment on above: Take 10 mEq by mouth twice daily. prednisoLONE acetate 10 mg/ml ophthalmic suspension (4 sources) Corticosteroid Start: 04-30-2022 End: 10-10-2022 prednisoLONE acetate (PRED FORTE, ECONOPRED PLUS) 1 % ophthalmic suspension USE DIRECTED BY PHYSICIAN, IN OPERATIVE EYE, BEGINNING ONE DAY AFTER SURGERY 5 mL 0 05/14/2022 10/10/2022 Discontinued (Course of therapy completed) Comment on above: USE DIRECTED BY Star COE, IN OPERATIVE EYE, BEGINNING ONE DAY AFTER SURGERY PSYLLIUM SEED, WITH DEXTROSE, (FIBER ORAL) (2 sources) End: 03-07-2022 PSYLLIUM SEED, WITH DEXTROSE, (FIBER ORAL) Take by mouth. 0 03/07/2022 Discontinued (Discontinued by Patient) PSYLLIUM SEED, W ITH DEXTROSE, (FIBER ORAL) Take by mouth. 0 Active Comment on above: Take by mouth. traMADol hydrochloride 50 mg oral tablet (10 sources) Opioid Agonist Start: 11-27-2021 take 1 tablet by mouth every eight hours as needed traMADol (ULTRAM) 50 mg tablet Take 50 mg by mouth three times daily as needed. 0 11/27/2021 Active Start: 07-28-2017 End: 07-29-2017 take 50 mg by mouth every six hours Tramadol Active 50 MG PO Every 6 hours 40 July 29, 2017 6:23pm Comment on above: Take 50 mg by mouth three times daily as needed. TYRVAYA 0.03 mg/spray nasal spray (6 sources) Start: 01-04-20 take 1 spray(s) nasal route twice daily TYRVAYA 0.03 mg/spray nasal spray Instill 1 spray into both nostrils twice a day 0 01/03/2022 Active Comment on above: Instill 1 spray into both nostrils twice a day ubidecarenone 10 mg oral capsule (1 source) End: 03-07-20 ubidecarenone Q-10 (COENZYME Q-10) 10 mg cap Take by mouth. 0 03/07/2022 Discontinued (Discontinued by Patient) Comment on above: Take by mouth. 24 hr venlafaxine 75 mg extended release oral capsule (4 sources) Serotonin and Norepinephrine Reuptake Inhibitor Start: 04-09-20 take 1 capsule by mouth once daily venlafaxine ER (EFFEXOR XR) 75 mg 24 hr capsule Take 75 mg by mouth once daily. 0 04/09/2022 Active Comment on above: Take 75 mg by mouth once daily. VIT C/VIT E/LUTEIN/MIN/OMEGA-3 (OCUVITE ORAL) (7 sources) VIT C/VIT E/LUTEIN/MIN/OMEGA-3 (OCUVITE ORAL) Take by mouth. 0 Active Comment on above: Take by mouth. Problems Active Problems Problem Classification Problem Date Documented Date Episodic/Chronic Acute bronchitis (1 source) Acute bronchitis, unspecified; Translations: [ACUTE BRONCHITIS UNSPECIFIED] Onset: 09-29-2022 Episodic Anxiety disorders (4 sources) Anxiety; Translations: [Anxiety disorder, unspecified] Onset: 04-24-2022 04-24-2022 Chronic Cataract (10 sources) Bilateral senile combined form cataracts of eyes; Translations: [Combined forms of age-related cataract, bilateral] Onset: 03-07-2022 Chronic Congestive heart failure; nonhypertensive (2 sources) Acute on chronic diastolic (congestive) heart failure; Translations: [Acute on chronic diastolic (congestive) heart failure] Onset: 07-08-2023 Chronic Coronary atherosclerosis and other heart disease (6 sources) Coronary arteriosclerosis; Translations: [Atherosclerotic heart disease of [place] coronary artery without angina pectoris] Onset: 04-24-2022 04-24-2022 Chronic Deficiency and other anemia (1 source) Anemia, unspecified; Translations: [ANEMIA UNSPECIFIED] Onset: 11-18-2022 Episodic Diabetes mellitus without complication (1 source) Hyperglycemia, unspecified; Translations: [HYPERGLYCEMIA UNSPECIFIED] Onset: 11-18-2022 Episodic Disorders of lipid metabolism (8 sources) Hyperlipidemia; Translations: [Hyperlipidemia, unspecified] Onset: 02-22-2019 04-24-2022 Chronic Esophageal disorders (4 sources) Gastroesophageal reflux disease; Translations: [Gastro-esophageal reflux disease without esophagitis] Onset: 02-22-2019 04-24-2022 Chronic Essential hypertension (6 sources) Hypertensive disorder; Translations: [Essential (primary) hypertension] Onset: 02-22-2019 04-24-2022 Chronic Heart valve disorders (9 sources) Nonrheumatic mitral (valve) insufficiency; Translations: [Nonrheumatic aortic (valve) insufficiency] Onset: 04-21-2022 Chronic Hypertension with complications and secondary hypertension (2 sources) Hypertensive chronic kidney disease with stage 1 through stage 4 chronic kidney disease, or unspecified chronic kidney disease; Translations: [Hypertensive chronic kidney disease with stage 1 through stage 4 chronic kidney disease, or unspecified chronic kidney disease] Onset: 07-08-2023 Chronic Inflammation; infection of eye (except that caused by tuberculosis or sexually transmitteddisease) (2 sources) Punctate keratitis of left eye; Translations: [Punctate keratitis, left eye] Onset: 05-01-2022 Chronic Malaise and fatigue (1 source) Other fatigue; Translations: [OTHER FATIGUE] Onset: 11-18-2022 Episodic Mood disorders (4 sources) Depressive disorder; Translations: [Depression] Onset: 04-24-2022 04-24-2022 Chronic Other circulatory disease (4 sources) Raynaud's syndrome without gangrene; Translations: [RAYNAUDS SYNDROME WITHOUT GANGRENE] Onset: 07-25-2022 Chronic Other eye disorders (1 source) Posterior vitreous detachment of right eye; Translations: [Vitreous degeneration, right eye] Chronic Other eye disorders (1 source) Bilateral vitreous degeneration of eyes; Translations: [Vitreous degeneration, bilateral] Chronic Other eye disorders (1 source) H/O: L cataract extraction; Translations: [Cataract extraction status, left eye] Episodic Other lower respiratory disease (2 sources) Shortness of breath; Translations: [Shortness of breath] Onset: 07-08-2023 Episodic Pulmonary heart disease (2 sources) Pulmonary hypertension, unspecified; Translations: [Pulmonary hypertension, unspecified] Onset: 07-08-2023 Chronic Retinal detachments; defects; vascular occlusion; and retinopathy (1 source) Retinal pigment epithelial abnormality; 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 Unclassified (3 sources) CONTACT W/AND (SUSP) EXPOS COVID-19; Translations: [CONTACT W/AND (SUSP) EXPOS COVID-19] Onset: 09-29-2022 Unclassified (1 source) Encounter for screening mammogram for malignant neoplasm of breast; Translations: [Encounter for screening mammogram for malignant neoplasm of breast] Onset: 06-11-2023 Past or Other Problems Problem Classification Problem Date Documented Da te Episodic/Chronic Coronary atherosclerosis and other heart disease (2 sources) Presence of coronary angioplasty implant and graft; Translations: [Presence of coronary angioplasty implant and graft] Onset: 07-01-2022 Episodic Other non-traumatic joint disorders (7 sources) Pain in unspecified knee; Translations: [Pain in joint, lower leg] Onset: 06-04-2012 06-04-2012 Episodic Spondylosis; intervertebral disc disorders; other back problems (7 sources) Chronic low back pain; Translations: [Chronic bilateral low back pain without sciatica] Onset: 06-14-2016 08-07-2021 Episodic Unclassified (1 source) CONTACT W/AND (SUSP) EXPOS COVID-19; Translations: [CONTACT W/AND (SUSP) EXPOS COVID-19] Onset: 09-25-2022 Results Test Name Value Interpretation Reference Range Facility Telephoneon 07-28-2023 Telephone [id number] Brandi Hubbard cca 1945 F Date Provider Department Center 07/28/2023 [facility] Family History Problem Relation Age of Onset Coronary artery disease Father Hypertension Father Family Status - Relation Status Age at Father Normal [facility] 37on 07-08-2023 37 *Resume lasix. Take 20mg daily x1 week then go back to every other day. *Have stress test done. *Watch your fluid intake. Try to limit to 2 liters a day. *Eat a low sodium diet. Normal [facility] Office Visiton 07-08-2023 Follow-up visit [id number] Brandi Hubbard cca 1945 F Date Provider Department Center 07/08/2023 DINORAH BETHEA [facility] Family History Problem Relation Age of Onset Coronary artery disease Father Hypertension Father Family Status - Relation Status Age at Father Level of Service:[address] [place] OFFICE/OUTPATIENT ESTABLISHED MOD MDM 30-39 MIN Reason for Visit and Comments: Fatigue [46] Congestive Heart Failure [127] Edema [[id number]] Shortness of Breath [962102] Normal [facility] MM screening mammo BI w/CADo n 06-11-2023 MM screening mammo BI w/CAD [facility] [place] [address] Mammography Report Signed Patient: Son Hubbard MR#: [id number] 1827 : 1945 Acct:[id number] Age/Sex: 78 / F ADM Date: 06/11/23 Loc: [place] Room: Type: [facility] Attending Dr: Referral Self Copies to: Pat Newell MD SELF,REFERRAL Ordering Provider: SELF,REFERRAL Date of Service: 06/11/23 MM/MM screening mammo BI w/CAD: SCREENING CLINICAL DATA: Screening for malignancy. BILATERAL SCREENING MAMMOGRAMS - FULL FIELD DIGITAL WITH TOMOSYNTHESIS AND CAD Tomosynthesis craniocaudal and mediolateral oblique views of both breasts were obtained using low- dose digital technique. Comparison is made to prior studies from 06/10/2022, 06/04/2021, 06/02/2020, and 05/12/2019. This examination was reviewed with the aid of CAD. There are scattered fibroglandular densities. Benign-appearing lymph nodes are noted along the chest wall. Benign-appearing calcifications are present bilaterally. There are no dominant masses, ty pically malignant calcifications or architectural distortion. There has been no significant interval change. MM/MM screening mammo BI w/CAD IMPRESSION: NO MAMMOGRAPHIC EVIDENCE OF MALIGNANCY. ROUTINE FOLLOW-UP IS RECOMMENDED IN ONE YEAR. RESULT CODE: 2 Benign Findings(s) DENSITY CODE: 2 (approximately 25-50% glandular) FOLLOW UP: 1YR The false-negative rate of mammography is approximately 10-percent. Management of a palpable abnormality must be based on clinical grounds. Patient was entered into a reminder system with a target due date for the next mammogram. Impression dictated by: Charlie Green M.D.06/11/2023 12:04 PM Dictation Location: [facility] Transcribed By: [facility] 06/11/231203 Dictated By: Charlie Green II, MD 06/11/231200 Signed By: 06/11/23 120 [facility] Office Visiton 03-28-2023 Follow-up visit [id number] Brandi Hubbard cca 1945 F Date Provider Department Center 03/28/2023 [facility] Family History Problem Relation Age of Onset Coronary artery disease Father Hypertension Father Family Status - Relation Status Age at Father Level of Service:[id number] [place] OFFICE/OUTPATIENT ESTABLISHED LOW MDM 20-29 MIN Reason for Visit and Comments: Follow-up [436406] - 6 MONTH FOLLOW UP Normal [facility] INSULINon 11-13-2022 Insulin 16.2 uIU/mL Normal 2.6-24.9 [facility] Comment on above: Performed By: #### I NSULIN ####[facility] [id number] [place], [place] [address]QxDr. Isi Britton CBC AUTO DIFFon 11-12-2022 BASO # 0.0 103/ul Normal 0.0-0.1 [facility] Comment on above: Performed By: #### C BC #### [facility] [address] [place], [place] [address] Dr. Isi Britton Basophils/100 WBC (Bld) 0.6 % Normal 0.2-2.0 [facility] Comment on above: Performed By: #### C BC #### [facility] [address] [place] [address] Dr. Isi Britton EO # 0.1 103/ul Normal 0.0-0.7 [facility] Comment on above: Performed By: #### C BC #### [facility] [address] [place] [address] Dr. Isi Britton Eosinophils/100 WBC (Bld) 1.3 % Normal 0.9-7.0 [facility] Comment on above: Performed By: #### C BC #### [facility] [address] [place] [address] Dr. Isi Britton Erythrocyte distribution width (RBC) [Ratio] 13.1 % Normal 11.0-15.0 [facility] Comment on above: Performed By: #### C BC #### [facility] [address] [place] [address] Dr. Isi Britton Hematocrit (Bld) [Volume fraction] 40.1 % Normal 36.0-48.0 [facility] Comment on above: Performed By: #### C BC #### [facility] [address] [place] [address] Dr. Isi Britton Hemoglobin (Bld) [Mass/Vol] 13.5 g/dL Normal 12.0-16.0 [facility] Comment on above: Performed By: #### C BC #### [facility] [address] [place] [address] Dr. Isi Britton IG # 0.01 10e3/ul Normal 0.00-0.03 [facility] Comment on above: Performed By: #### C BC #### [facility] [address] [place] [address] Dr. Isi Britton IG % 0.2 % Normal 0.0-0.5 [facility] Comment on above: Performed By: #### C BC #### [facility] [address] [place] [address] Dr. Isi Britton LYMPH # 1.6 103/ul Normal 1.2-3.8 [facility] Comment on above: Performed By: #### C BC #### [facility] [address] [place] [address] Dr. Isi Britton Lymphocytes/100 WBC (Bld) 24.9 % Normal 20.5-60.0 [facility] Comment on above: Performed By: #### C BC #### [facility] [address] [place] [address] Dr. Isi Britton MANUAL DIFF REQ NO Normal [facility] Comment on above: Performed By: #### C BC #### [facility] [address] [place] [address] Dr. Isi Britton MCH (RBC) [Entitic mass] 31.9 pg Normal 26.7-34.0 [facility] Comment on above: Performed By: #### C BC #### [facility] [address] [place] [address] Dr. sIi Britton MCHC (RBC) [Mass/Vol] 33.7 g/dL Normal 29.9-35.2 [facility] Comment on above: Performed By: #### C BC #### [facility] [address] [place] [address] Dr. Isi Britton MCV (RBC) [Entitic vol] 94.8 fL Normal 81.0-99.0 [facility] Comment on above: Performed By: #### C BC #### [facility] [address] [place] [address] Dr. Isi Britton MONO # 0.6 103/ul Normal 0.3-0.8 [facility] Comment on above: Performed By: #### C BC #### [facility] [address] [place] [address] Dr. Isi Britton Monocytes/100 WBC (Bld) 10.1 % Normal 1.7-12.0 [facility] Comment on above: Performed By: #### C BC #### [facility] [address] [place] [address] Dr. Isi Britton NEUT # 3.9 103/ul Normal 1.4-6.5 [facility] Comment on above: Performed By: #### C BC #### [facility] [address] [place] [address] Dr. Isi Britton Neutrophils/100 WBC (Bld) 62.9 % Normal 43.0-75.0 [facility] Comment on above: Performed By: #### C BC #### [facility] [address] [address] [address] Isi Britton Platelet mean volume (Bld) [Entitic vol] 10.5 fL Normal 9.5-13.5 [facility] Comment on above: Performed By: #### C BC #### [facility] [address] [address] [address] Isi Britton PLT 220 103/ul Normal 150-450 [facility] Comment on above: Performed By: #### C BC #### [facility] [address] [address] [address] Isi Britton RBC 4.23 106/ul Normal 4.20-5.40 [facility] Comment on above: Performed By: #### C BC #### [facility] [address] [address] [address] Isi Britton WBC 6.2 103/ul Normal 4.0-11.0 [facility] Comment on above: Performed By: #### C BC #### [facility] [address] [address] [address] Isi Britton FREE T3on 11-12-2022 FREE T3 2.21 pg/mlL Normal 2.18-3.98 [facility] Comment on above: Performed By: #### L IPID, CMP, T7, FT3, TSH #### [facility] [address] [address] [address] Isi Britton FREE T4on 11-12-2022 Free T4 [Mass/Vol] 1.04 ng/dL Normal 0.76-1.46 [facility] Comment on above: Performed By: #### I RONI, FT4 ####[facility] [address] [address]Dr. Isi Britton FREE THYROXINE INDEX T7on FTI 3.38 Normal 1.30-4.50 [facility] Comment on above: Performed By: #### L IPID, CMP, T7, FT3, TSH #### [facility] [address] [address] [address] Isi Britton T3U 36.0 % Normal 30.0-39.0 [facility] Comment on above: Performed By: #### L IPID, CMP, T7, FT3, TSH #### [facility] [address] [address] [address] Isi Britton T4 [Mass/Vol] 9.40 ug/dL Normal 4.80-13.90 [facility] Comment on above: Performed By: #### L IPID, CMP, T7, FT3, TSH #### [facility] [address] [address] [address] Isi Britton GLYCOHEMOGLOBIN A1Con 2022 ADA RECOMMENDATION SEE BELOW Normal [facility] Comment on above: Result Comment: ADA RECOMMENDED LIMIT 4.0 - 6.0 ADA THERAPEUTIC TARGET < 7.0 ACTION SUGGESTED > 7.0 Performed By: #### A 1C #### [facility] [address] [place] [address] Dr. Isi Britton Glucose [Mass/Vol] 111 mg/dL Normal [facility] Comment on above: Performed By: #### A 1C #### [facility] [address] [place] [address] Dr. Isi Britton HbA1c (Bld) [Mass fraction] 5.5 % Normal 4.5-6.2 [facility] Comment on above: Performed By: #### A 1C #### [facility] [address] [place] [address] Dr. Isi Britton IRONon 11-12-2022 Iron [Mass/Vol] 71.0 ug/dL Normal 50.0-170.0 [facility] Comment on above: Performed By: #### I RONI, FT4 #### [facility] [address] [place] [address] Dr. Isi Britton LIPID PROFILEon 11-12-2022 CHOL-HDL RATIO NORM SEE BELOW Normal [facility] Comment on above: Result Comment: 3.3 - 4.4 LOW RISK 4.4 - 7.1 AVERAGE RISK 7.1 - 11.0 MODERATE RISK >11.0 HIGH RISK Performed By: #### L IPID, CMP, T7, FT3, TSH #### [facility] [address] [address] [address] Isi Britton Cholesterol [Mass/Vol] 139 mg/dL Normal <=200 [facility] Comment on above: Performed By: #### L IPID, CMP, T7, FT3, TSH #### [facility] [address] [address] [address] Isi Britton Cholesterol in HDL [Mass/Vol] 70 mg/dL Critically high 40-60 [facility] Comment on above: Performed By: #### L IPID, CMP, T7, FT3, TSH #### [facility] [address] [address] [address] Isi Britton Cholesterol in LDL [Mass/Vol] 49.4 mg/dL Normal [facility] Comment on above: Performed By: #### L IPID, CMP, T7, FT3, TSH #### [facility] [address] [address] [address] Isi Britton Cholesterol.total/C holesterol in HDL [Mass ratio] 2.0 {ratio} Normal [facility] Comment on above: Performed By: #### L IPID, CMP, T7, FT3, TSH #### [facility] [address] [place] [address] Dr. Isi Britton HDL NORMAL > or = 60 mg/dl - LO W CARDIOVASCULAR RISK <40 mg/dl - HIGH CARDIOVASCULAR RISK Normal [facility] Comment on above: Performed By: #### L IPID, CMP, T7, FT3, TSH #### [facility] [address] [address] [address] Isi Britton LDL CALC NORMAL SEE BELOW Normal [facility] Comment on above: Result Comment: <100 mg/dl OPTIMAL 100 - 129 mg/dl NEAR OR ABOVE OPTIMAL 130 - 159 mg/dl BORDERLINE HIGH 160 - 189 mg/dl HIGH >190 mg/dl VERY HIGH Performed By: #### L IPID, CMP, T7, FT3, TSH #### [facility] [address] [address] [address] Isi Britton Triglyceride [Mass/Vol] 98 mg/dL Normal <=150 [facility] Comment on above: Performed By: #### L IPID, CMP, T7, FT3, TSH #### [facility] [address] [address] [address] Isi Britton VLDL CALC 19.6 mg/dL Normal [facility] Comment on above: Performed By: #### L IPID, CMP, T7, FT3, TSH #### [facility] [address] [address] [address] Isi Britton PROF 14(COMP METB)on 023 Albumin [Mass/Vol] 3.9 g/dL Normal 3.4-5.0 [facility] Comment on above: Performed By: #### L IPID, CMP, T7, FT3, TSH #### [facility] [address] [place] [address] Dr. Isi Britton Albumin/Globulin [Mass ratio] 1.2 {ratio} Normal [facility] Comment on above: Performed By: #### L IPID, CMP, T7, FT3, TSH #### [facility] [address] [place] [address] Dr. Isi Britton ALP [Catalytic activity/Vol] 99 U/L Normal 46-116 [facility] Comment on above: Performed By: #### L IPID, CMP, T7, FT3, TSH #### [facility] [address] [place] [address] Dr. Isi Britton ALT [Catalytic activity/Vol] 26 U/L Normal 14-59 [facility] Comment on above: Performed By: #### L IPID, CMP, T7, FT3, TSH #### [facility] [address] [place] [address] Dr. Isi Britton Anion gap [Moles/Vol] 13.1 mmol/L Normal [facility] Comment on above: Performed By: #### L IPID, CMP, T7, FT3, TSH #### [facility] [address] [place] [address] Dr. Isi Britton AST [Catalytic activity/Vol] 20 U/L Normal 15-37 [facility] Comment on above: Performed By: #### L IPID, CMP, T7, FT3, TSH #### [facility] [address] [place] [address] Dr. Isi Britton Bilirubin [Mass/Vol] 0.9 mg/dL Normal 0.2-1.0 [facility] Comment on above: Performed By: #### L IPID, CMP, T7, FT3, TSH #### [facility] [address] [place] [address] Dr. Isi Britton Calcium [Mass/Vol] 9.4 mg/dL Normal 8.5-10.1 [facility] Comment on above: Performed By: #### L IPID, CMP, T7, FT3, TSH #### [facility] [address] [place] [address] Dr. Iis Britton Chloride [Moles/Vol] 104 mmol/L Normal 98-107 [facility] Comment on above: Performed By: #### L IPID, CMP, T7, FT3, TSH #### [facility] [address] [place] [address] Dr. Isi Britton CO2 [Moles/Vol] 29.2 mmol/L Normal 21.0-32.0 [facility] Comment on above: Performed By: #### L IPID, CMP, T7, FT3, TSH #### [facility] [address] [place] [address] Dr. Isi Britton Creatinine [Mass/Vol] 1.36 mg/dL Critically high 0.55-1.02 [facility] Comment on above: Performed By: #### L IPID, CMP, T7, FT3, TSH #### [facility] [address] [place] [address] Dr. Isi Britton EGFR-AF SERBIAN 46 mL/min/1.73m2 Critically low >=60 [facility] Comment on above: Performed By: #### L IPID, CMP, T7, FT3, TSH #### [facility] [address] [place], [place] [id number] Dr. Isi Britton EGFR-NON AF SERBIAN 38 mL/min/1.73m2 Critically low >=60 [facility] Comment on above: Performed By: #### L IPID, CMP, T7, FT3, TSH #### [facility] [address] [place] [address] Dr. Isi Britton Globulin (S) [Mass/Vol] 3.3 g/dL Normal [facility] Comment on above: Performed By: #### L IPID, CMP, T7, FT3, TSH #### [facility] [address] [address] [address] Isi Britton Glucose [Mass/Vol] 107 mg/dL Critically high 74-106 [facility] Comment on above: Performed By: #### L IPID, CMP, T7, FT3, TSH #### [facility] [address] [place] [address] Dr. Isi Britton Potassium [Moles/Vol] 4.3 mmol/L Normal 3.5-5.1 [facility] Comment on above: Performed By: #### L IPID, CMP, T7, FT3, TSH #### [facility] [address] [place] [address] Dr. Isi Britton Protein [Mass/Vol] 7.2 g/dL Normal 6.4-8.2 [facility] Comment on above: Performed By: #### L IPID, CMP, T7, FT3, TSH #### [facility] [address] [place] [address] Dr. Isi Britton Sodium [Moles/Vol] 142 mmol/L Normal 136-145 [facility] Comment on above: Performed By: #### L IPID, CMP, T7, FT3, TSH #### [facility] [address] [place] [address] Dr. Isi Britton Urea nitrogen [Mass/Vol] 24.0 mg/dL Critically high 7.0-18.0 [facility] Comment on above: Performed By: #### L IPID, CMP, T7, FT3, TSH #### [facility] [address] [address] [address] Isi Britton Urea nitrogen/Creatinine [Mass ratio] 17.6 mg/mg Normal [facility] Comment on above: Performed By: #### L IPID, CMP, T7, FT3, TSH #### [facility] [address] [place], [place] [address] Dr. Isi Britton TSHon 11-12-2022 TSH 1.802 uIU/mL Normal 0.358-3.740 [facility] Comment on above: Performed By: #### L IPID, CMP, T7, FT3, TSH #### [facility] [address] [place], [place] [address] Dr. Isi Britton Covid-19 PCR ([facility])on 09-11 SARS-CoV-2 (COVID-19) RNA ERICK+probe Ql (Unsp spec) Not detected Normal NOT DETECTED [facility] Comment on above: Result Comment: This test is not yet approved or cleared by the [place] FDA. When there are no FDA-approved or cleared tests available, and other criteria are met, FDA can make tests available under an emergency access mechanism called an Emergency Use Authorization (EUA). The EUA for this test is supported by the [place] of Health and Human Service's (HHS's) declaration that circumstances exist to justify the emergency use of in vitro diagnostics for the detection and/or diagnosis of the virus that causes COVID-19. This EUA will remain in effect (meaning this test can be used) for the duration of the COVID-19 declaration justifying emergency of IVDs, unless it is terminated or revoked by FDA (after which the test may no longer be used). When diagnostic testing is negative, the possibility of a false negative should be considered in the context of a patient's recent exposures and the presence of clinical signs and symptoms consistent with SARS-CoV-2. Performed By: #### C VDTBH ####[facility] [address] [place], [place] [address]DjDr. Isi Britton ECHOCARDIO M/2D COMPLETEon 1 09-09-2021 ECHOCARDIO M/2D COMPLETE Patient: SON HUBBARD Exam Date: 07/10/2022 : 1945 Gender:F Ordering : DR CLINTON DORAN M.D. Admission #: [id number] Family : PAT NEWELL . Order #: [id number] CLICK HERE TO VIEW EXAM ECHOCARDIOGRAM REPORT PROCEDURE: CARDIO PULMONARY ECHOCARDIO M/2D COMP INDICATIONS: Nonrheumatic mitral valve regurgitation and aortic valve insufficiency COMPARISON: None. DESCRIPTION: COMPLETE ECHOCARDIOGRAM Real-time transthoracic echocardiography with 2D, M-mode, spectral and color flow Doppler performed. QUALITY: Technically difficult due to patients condition. 63 185# BP 186/90 LEFT VENTRICLE: Normal chamber size. Normal left ventricular wall thickness. LV EF: Global left ventricular systolic function is hyperdynamic; visually estimated ejection fraction is 65 to 70%. No significant wall motion abnormalities. DIASTOLIC: Diastolic function is indeterminate. ATRIAL SEPTUM: Visually appears intact. LEFT ATRIUM: Normal chamber size. RIGHT ATRIUM: Normal chamber size. RIGHT VENTRICLE: Normal chamber size. TRICUSPID VALVE: Normal mobility and thickness. No stenosis with mild regurgitation. No evidence of pulmonary hypertension. RVSP 33 mmHg MITRAL VALVE: Normal mobility and thickness. No evidence of mitral valve stenosis. Mild mitral annular calcification. Mild to moderate mitral regurgitation. AORTIC VALVE: Normal trileaflet appearance. Thickened aortic valve. Normal leaflet mobility. No evidence of aortic valve stenosis. Mild aortic regurgitation. AORTIC ROOT: Mildly dilated. PULMONIC VALVE: Not well visualized. No stenosis. No regurgitation. PERICARDIUM: No evidence of pericardial effusion. IVC: Collapses with inspirations. CONCLUSION: Global left ventricular systolic function is hyperdynamic; visually estimated ejection fraction of 65 to 70%. No significant wall motion abnormalities. Diastolic function is indeterminate. Mild tricuspid regurgitation. Mild to moderate mitral regurgitation. Mild aortic valve regurgitation. The aortic root is mildly dilated. Adult Echocardiography Procedure Report Left Ventricle LVEDD (3.7 - 5.6 cm): 3.21 cm LVESD (2.2 - 4.0 cm): 2.03 cm LVIVS thickness (0.6 - 1.2 cm): 1.05 cm LVPW thickness (0.5 - 1.0 cm): 0.91 cm e': 0.06 m/s E - e': 8.44 LVOT Max Gradient: 7.19 mm[Hg] Peak Velocity (LVOT): 1.34 m/s Mean Velocity (LVOT): 0.98 m/s LVOT Diameter 2.12 cm Left Ventricular Ejection Fraction: 67.71 %, 67.71 % Left Atrium LA Volume Index (2D A2C): 50.39 ml, 50.39 ml Left Atrium Systolic Dimension: 3.20 cm Mitral Valve MV E to A Ratio: 0.51 Mitral Valve A-Wave Peak Velocity: 0.91 m/s Mitral Valve E-Wave Peak Velocity: 0.47 m/s Right Ventricle Aorta AO Root Diam: 3.11 cm Aortic Valve AoV Area (Peak Eric): 3.36 cm2, 3.54 cm2 AoV Area (VTI): 3.52 cm2, 4.18 cm2 Peak Velocity(Antegrade Flow): 1.34 m/s, 1.48 m/s Peak Gradient(Antegrade Flow): 7.17 mm[Hg], 8.77 mm[Hg] Mean Velocity(Antegrade Flow): 0.94 m/s, 1.15 m/s Mean Gradient(Antegrade Flow): 3.88 mm[Hg], 5.61 mm[Hg] Velocity Time Integral: 24.07 cm, 33.14 cm Tricuspid Valve Peak Velocity (Regurgitant Flow): 2.72 m/s Peak Velocity: 0.50 m/s Pulmonic Valve Peak Velocity: 1.14 m/s, 1.35 m/s Peak Gradient: 5.16 mm[Hg], 7.30 mm[Hg] Right Atrium Dictated by: Rebeka Johnson M.D. on 07/10/2022 at 15:33 Approved by: Rebeka Johnson M.D. on 07/10/2022 at 15:37 [facility] ANES POSTPROC EVALon 022 ANES POSTPROC EVAL HNO ID: [id number] Author: Abner Cox II, DO Service: Anesthesiology Author Type: Anesthesiologist Type: Anesthesia Postprocedure Evaluation Filed: 05/15/2022 11:10 AM Note Text: POST ANESTHESIA EVALUATION NOTE : 1945 Procedure Summary Date: 05/15/22 Room / Location: [address] Anesthesia Start: 928 Anesthesia Stop: 949 Procedures: PHACOEMULSIFICATION CATARACT IMPLANT INTRAOCULAR LENS W/O ENDOSCOPIC CYCLOPHOTOCOAGULATION (Right: Eye) OPHTHALMIC BIOMETRY BY PARTIAL COHERENCE INTERFEROMETRY W/INTRAOCULAR LENS POWER CALCULATION (Right: Eye) Diagnosis: Combined forms of age-related cataract of both eyes (Combined forms of age-related cataract of both eyes [H25.813]) Surgeons: Mylene Almeida V, MD Responsible Provider: Abner Cox II, DO Anesthesia Type: MAC ASA Status: 3 Anesthesia Type: MAC Last Vitals Vitals Value Taken Time BP 136/72 05/15/22 1000 Temp 36.2 ?C (97.2 ?F) 05/15/22 0950 HR SpO2 78 05/15/22 1000 Resp 16 05/15/22 1000 SpO2 98 % 05/15/22 1000 Post Anesthesia Patient Status Patient Evaluation: PACU. PACU/ICU Patient Condition: stable. Neurological Status: aware and responsive. Pulmonary Status: breathing comfortably on room air Airway Control: returned to baseline unsupported. Cardiovascular Status: stable. Pain Management: clinically adequate Postoperative Hydration: acceptable. Intraoperative Events: no significant anesthesia events Post Operative Nausea/Vomiting Status: no significant post operative nausea or vomiting Anesthetic Observations: Recommendation: continue current plan of care. Anesthesia Observations No Documentation SIGNATURE: Abner Cox II, DO PATIENT NAME: Son Hubbard DATE: May 15, 2022 TIME: 11:10 AM CSN: [id number] Normal [facility] ANES PRE-OPon 05-15-2022 ANES PRE-OP HNO ID: [id number] Author: Abner Cox II, DO Service: Anesthesiology Author Type: Anesthesiologist Type: Anesthesia Preprocedure Evaluation Filed: 05/15/2022 8:52 AM Note Text: ANESTHESIOLOGY DAY OF SURGERY NOTE : 1945 Procedure Information Date/Time: 05/15/22 0930 Procedures: PHACOEMULSIFICATION CATARACT IMPLANT INTRAOCULAR LENS W/O ENDOSCOPIC CYCLOPHOTOCOAGULATION (Right: Eye) OPHTHALMIC BIOMETRY BY PARTIAL COHERENCE INTERFEROMETRY W/INTRAOCULAR LENS POWER CALCULATION (Right: Eye) Location: [address] Surgeons: Mylene Almeida V, MD Estimated body mass index is 30.21 kg/m? as calculated from the following: Height as of 04/24/22: 162.6 cm (5' 4 ). Weight as of 9/14/22: 79.8 kg (176 lb). Most recent hematocrit and potassium results: Hematocrit 43.8 06/20/2016 Potassium 4.8 06/20/2016 Relevant Problems CARDIO (+) CAD (coronary artery disease) (+) HTN (hypertension) GI (+) Acid reflux I - PHYSICAL EVALUATION AIRWAY Patient intubated: No. Tracheostomy tube not present Mallampati: II. TM distance: >3 FB. Neck ROM: limited extension. Mouth opening: adequate. Short neck: no. Thick neck: no DENTAL Dental findings: missing tooth/teeth. Additional exam findings: yes. CARDIOVASCULAR Rhythm: regular Rate: normal PULMONARY Breath sounds clear to auscultation. II - ANESTHESIA PLAN ASA Score: 3 Anesthetic Plan: MAC The patient is not a current smoker. NPO Status: adequate Monitoring plan: standard ASA. Postoperative analgesic plan: parenteral or oral opioids. Informed Consent Anesthetic risks, benefits, alternatives, personnel and consent discussed: yes. Patient / Responsible Republican agrees to proceed: yes Patient / Surrogate agrees to blood products: Yes No vitals data found for the desired time range. Facility-Administered Medications as of 05/15/2022 Medication Dose Route Frequency - NaCl 0.9% iv infusion 30 mL/hr INTRAVENOUS CONTINUOUS - lidocaine HCl (PF) 40 mg/mL injection (XYLOCAINE) RIGHT EYE As Directed - PHENYLephrine 2.5 % 1 Drop (AK-DILATE, ROBERT-SYNEPHRINE) 1 Drop RIGHT EYE EVERY 5 MINUTES X 3 DOSES - tropicamide 1 % 1 Drop (MYDRIACYL) 1 Drop RIGHT EYE EVERY 5 MINUTES X 3 DOSES - cyclopentolate 1 % 1 Drop (CYCLOGYL) 1 Drop RIGHT EYE Pre-Op PRN - keTORolac 0.5 % 1 Drop (ACULAR) 1 Drop RIGHT EYE q 5 MIN - Povidone-Iodine 5 % 30 mL ophth soln (BETADINE) 30 mL RIGHT EYE ONCE - balanced salts 15 mL (BSS) 15 mL RIGHT EYE ONCE - [COMPLETED] tetracaine (PF) 0.5 % 2 Drop (OPTICAINE) 2 Drop LEFT EYE q 5 MIN - [COMPLETED] PHENYLephrine 2.5 % 1 Drop (AK-DILATE, ROBERT-SYNEPHRINE) 1 Drop LEFT EYE EVERY 5 MINUTES X 3 DOSES - [COMPLETED] tropicamide 1 % 1 Drop (MYDRIACYL) 1 Drop LEFT EYE EVERY 5 MINUTES X 3 DOSES - [COMPLETED] keTORolac 0.5 % 1 Drop (ACULAR) 1 Drop LEFT EYE q 5 MIN - [COMPLETED] Povidone-Iodine 5 % 30 mL ophth soln (BETADINE) 30 mL LEFT EYE ONCE - [COMPLETED] balanced salts 15 mL (BSS) 15 mL LEFT EYE ONCE Outpatient Medications as of 05/15/2022 Medication Sig - prednisoLONE acetate (PRED FORTE, ECONOPRED PLUS) 1 % ophthalmic suspension USE DIRECTED BY PHYSICIAN, IN OPERATIVE EYE, BEGINNING ONE DAY AFTER SURGERY - keTORolac (ACULAR) 0.5 % ophthalmic solution USE DIRECTED BY PHYSICIAN, IN OPERATIVE EYE, BEGINNING ONE DAY AFTER SURGERY - potassium chloride ER (K-DUR, KLOR-CON) 10 mEq tablet Take 10 mEq by mouth twice daily. - cyclobenzaprine (FLEXERIL) 5 mg tablet Take 5 mg by mouth daily at bedtime. - losartan (COZAAR) 50 mg tablet Take 100 mg by mouth once daily. - atorvastatin (LIPITOR) 10 mg tablet Take 10 mg by mouth once daily. - VIT C/VIT E/LUTEIN/MIN/OMEGA-3 (OCUVITE ORAL) Take by mouth. - Multivitamin capsule Take 1 capsule by mouth once daily. - prednisoLONE acetate (PRED FORTE, ECONOPRED PLUS) 1 % ophthalmic suspension USE DIRECTED BY PHYSICIAN, IN OPERATIVE EYE, BEGINNING ONE DAY AFTER SURGERY - keTORolac (ACULAR) 0.5 % ophthalmic solution USE DIRECTED BY PHYSICIAN, IN OPERATIVE EYE, BEGINNING ONE DAY AFTER SURGERY - TYRVAYA 0.03 mg/spray nasal spray Instill 1 spray into both nostrils twice a day - traMADol (ULTRAM) 50 mg tablet Take 50 mg by mouth three times daily as needed. I have interviewed and examined the patient. I have reviewed the medical record and/or the pre-anesthesia evaluation, pertinent labs, and test results. This contains updated information obtained within 48 hours of Surgery/Procedure. SIGNATURE: Abner Cox II, DO PATIENT NAME: Son Hubbard DATE: May 15, 2022 TIME: 8:51 AM CSN: [id number] [facility] OPERATIVE NOon 05-15-2022 OPERATIVE NO HNO ID: [id number] Author: Mylene Almeida V, MD Service: Ophthalmology Author Type: Physician Type: Operative Report Filed: 05/15/2022 9:46 AM Note Text: OPERATIVE REPORT DATE OF SERVICE: May 15, 2022 PRIMARY SURGEON: Mylene Almeida M.D. ENGINEER CHIEF: None Procedure(s) (LRB): PHACOEMULSIFICATION CATARACT IMPLANT INTRAOCULAR LENS W/O ENDOSCOPIC CYCLOPHOTOCOAGULATION (Right) OPHTHALMIC BIOMETRY BY PARTIAL COHERENCE INTERFEROMETRY W/INTRAOCULAR LENS POWER CALCULATION (Right) ANESTHESIA: Topical with monitored anesthesia care. PREOPERATIVE DIAGNOSIS: Combined cataract POSTOPERATIVE DIAGNOSIS: Combined cataract, presbyopia OPERATIVE INDICATIONS: BAT 20/70 OPERATIVE PROCEDURE: The patient was admitted to the operating suite where an IV and BP, EKG, and O2 monitors were placed. Nasal oxygen was administered. The operative eye was confirmed, marked, then pretreated with 2.5% tropicamide and 1% phenylephrine eye drops. With the patient in the supine position, topical lidocaine gel 2% was placed in a small ribbon in the lower cul-de-sac. The patient was then prepped and draped in the usual sterile fashion for intraocular surgery. After a time-out confirming correct patient, correct eye, correct operation, presence of allergies, and correct implant, an eyelid speculum was placed. Under the operating microscope a beveled clear corneal incision was created temporally with a [place] blade then a 2.4 mm keratome. The anterior chamber was reformed with Viscoat, after which the anterior capsule was opened centrally. Using the Utrata forceps a continuous curvilinear capsulorrhexis of approximately 5.5 mm round was created. Gentle hydrodissection was accomplished using preservative-free lidocaine on a 27-gauge cannula. Using the Shravan phacoemulsification unit with the Kelman curved tip, the anterior chamber was entered and the nucleus was removed while it was in the bag. The epinuclear ring was dissected into several segments, then removed using the phacoemulsification unit set to the desired aspiration flow rate and ultrasound parameters. It was necessary to use chopper forceps at various intervals to aid in the fragmentation of the dense lens material. Great care was taken not to violate the posterior capsule. The silicone-tipped I and A instrument was used to remove the cortex and buff off any remaining cataractous material from the posterior capsule. The capsular bag was then reformed with Discovisc and the following Intraocular lens implant Implant Name Type Inv. Item Serial No. Storage Solutions Architect Lot No. LRB No. Used Action Model No. LENS IOL 0D +18 TALAT UV ABS - [id number] Intraocular Lens LENS IOL 0D +18 TALAT UV ABS [id number] [employer] Right 1 Implanted [id number] was inserted through the lips of the wound into the capsular bag. Using the I and A instrument, the Discovisc was removed from the anterior chamber and capsular bag, and the implant was centered. Cefuroxime 1mg in 0.1 mL normal saline was introduced into the anterior chamber through the clear corneal incision using a 30 gauge cannula. The wound was checked and found to be watertight. At the end of the procedure, the cornea was clear, the anterior chamber was deep and clear, the pupil was round, the implant was centered within the capsular bag, and the posterior capsule was intact. The eyelid speculum was removed and prednisolone acetate 1% and timolol 0.5% eye drops were administered. A shield was affixed over the eye and the patient was sent to the recovery room, leaving the operating room in excellent condition. ESTIMATED BLOOD LOSS: <1mL SPECIMEN: None FINDINGS: Age-related cataract COMPLICATIONS: None Incision/Procedure Start Time: 9:35 AM Incision Close/Procedure End Time: 9:44 AM - [facility] Dr [facility] Mylene ALMEIDA MD [facility] ANES POSTPROC EVALon 022 ANES POSTPROC EVAL HNO ID: [id number] Author: Cristian Parker MD Service: Anesthesiology Author Type: Anesthesiologist Type: Anesthesia Postprocedure Evaluation Filed: 05/01/2022 11:15 AM Note Text: POST ANESTHESIA EVALUATION NOTE : 1945 Procedure Summary Date: 05/01/22 Room / Location: [address] Anesthesia Start: 1044 Anesthesia Stop: 1104 Procedures: PHACOEMULSIFICATION CATARACT IMPLANT INTRAOCULAR LENS W/O ENDOSCOPIC CYCLOPHOTOCOAGULATION (Left: Eye) OPHTHALMIC BIOMETRY BY PARTIAL COHERENCE INTERFEROMETRY W/INTRAOCULAR LENS POWER CALCULATION (Left: Eye) Diagnosis: Combined forms of age-related cataract of both eyes (Combined forms of age-related cataract of both eyes [H25.813]) Surgeons: Mylene Almeida V, MD Responsible Provider: Cristian Parker MD Anesthesia Type: MAC ASA Status: 3 Anesthesia Type: MAC Last Vitals Vitals Value Taken Time BP 128/55 05/01/22 1109 Temp 36.1 ?C (97 ?F) 05/01/22 1103 Pulse 72 05/01/22 1109 Resp 16 05/01/22 1109 SpO2 97 % 05/01/22 1109 Post Anesthesia Patient Status Patient Evaluation: PACU. PACU/ICU Patient Condition: stable. Anticipated Disposition: phase 2 then home. Neurological Status: aware and responsive. Pulmonary Status: breathing comfortably on room air Airway Control: returned to baseline unsupported. Cardiovascular Status: stable. Pain Management: clinically adequate Postoperative Hydration: acceptable. Intraoperative Events: no significant anesthesia events Post Operative Nausea/Vomiting Status: no significant post operative nausea or vomiting Anesthetic Observations: Recommendation: continue current plan of care. Anesthesia Observations No Documentation SIGNATURE: Cristian Parker MD PATIENT NAME: Son Hubbard DATE: May 01, 2022 TIME: 11:14 AM CSN: [id number] [facility] ANES PRE-OPon 05-01-2022 ANES PRE-OP HNO ID: [id number] Author: Cristian Parker MD Service: Anesthesiology Author Type: Anesthesiologist Type: Anesthesia Preprocedure Evaluation Filed: 05/01/2022 10:04 AM Note Text: ANESTHESIOLOGY DAY OF SURGERY NOTE : 1945 Procedure Information Date/Time: 05/01/22 1030 Procedures: PHACOEMULSIFICATION CATARACT IMPLANT INTRAOCULAR LENS W/O ENDOSCOPIC CYCLOPHOTOCOAGULATION (Left: Eye) OPHTHALMIC BIOMETRY BY PARTIAL COHERENCE INTERFEROMETRY W/INTRAOCULAR LENS POWER CALCULATION (Left: Eye) Location: [place] [address] / [facility] Surgeons: Mylene Almeida V, MD Estimated body mass index is 30.21 kg/m? as calculated from the following: Height as of 04/24/22: 162.6 cm (5' 4 ). Weight as of 04/24/22: 79.8 kg (176 lb). Most recent hematocrit and potassium results: Hematocrit 43.8 06/20/2016 Potassium 4.8 06/20/2016 Relevant Problems CARDIO (+) CAD (coronary artery disease) (+) HTN (hypertension) GI (+) Acid reflux I - PHYSICAL EVALUATION AIRWAY Patient intubated: No. Tracheostomy tube not present Mallampati: III. TM distance: >3 FB. Neck ROM: full ROM without neurological symptoms. Mouth opening: adequate. Short neck: no. Thick neck: no DENTAL Dental findings: teeth intact. II - ANESTHESIA PLAN ASA Score: 3 Anesthetic Plan: MAC The patient is not a current smoker. NPO Status: adequate Monitoring plan: standard ASA. Informed Consent Anesthetic risks, benefits, alternatives, personnel and consent discussed: yes. Patient / Responsible Republican agrees to proceed: yes Patient / Surrogate agrees to blood products: blood products not planned Significant changes in the patient condition since the History and Physical, not otherwise documented in primary service progress note: no. Potential Anesthesia issues that may suggest increased risk of complications or contraindication to planned procedure: none. Vitals Value Taken Time BP 132/70 05/01/22946 Pulse 75 05/01/22946 Resp 16 05/01/22946 Temp 36.6 ?C (97.8 ?F) 05/01/22946 SpO2 99 % 05/01/22946 Facility-Administered Medications as of 05/01/2022 Medication Dose Route Frequency - NaCl 0.9% iv infusion 30 mL/hr INTRAVENOUS CONTINUOUS - [COMPLETED] tetracaine (PF) 0.5 % 2 Drop (OPTICAINE) 2 Drop LEFT EYE q 5 MIN - lidocaine HCl (PF) 40 mg/mL injection (XYLOCAINE) LEFT EYE Pre-Op PRN - [COMPLETED] PHENYLephrine 2.5 % 1 Drop (AK-DILATE, ROBERT-SYNEPHRINE) 1 Drop LEFT EYE EVERY 5 MINUTES X 3 DOSES - [COMPLETED] tropicamide 1 % 1 Drop (MYDRIACYL) 1 Drop LEFT EYE EVERY 5 MINUTES X 3 DOSES - cyclopentolate 1 % 1 Drop (CYCLOGYL) 1 Drop LEFT EYE Pre-Op PRN - [COMPLETED] keTORolac 0.5 % 1 Drop (ACULAR) 1 Drop LEFT EYE q 5 MIN - [COMPLETED] Povidone-Iodine 5 % 30 mL ophth soln (BETADINE) 30 mL LEFT EYE ONCE - [COMPLETED] balanced salts 15 mL (BSS) 15 mL LEFT EYE ONCE Outpatient Medications as of 05/01/2022 Medication Sig - losartan (COZAAR) 50 mg tablet Take 100 mg by mouth once daily. - prednisoLONE acetate (PRED FORTE, ECONOPRED PLUS) 1 % ophthalmic suspension USE DIRECTED BY PHYSICIAN, IN OPERATIVE EYE, BEGINNING ONE DAY AFTER SURGERY - keTORolac (ACULAR) 0.5 % ophthalmic solution USE DIRECTED BY PHYSICIAN, IN OPERATIVE EYE, BEGINNING ONE DAY AFTER SURGERY - TYRVAYA 0.03 mg/spray nasal spray Instill 1 spray into both nostrils twice a day - traMADol (ULTRAM) 50 mg tablet Take 50 mg by mouth three times daily as needed. - potassium chloride ER (K-DUR, KLOR-CON) 10 mEq tablet Take 10 mEq by mouth twice daily. - cyclobenzaprine (FLEXERIL) 5 mg tablet Take 5 mg by mouth daily at bedtime. - atorvastatin (LIPITOR) 10 mg tablet Take 10 mg by mouth once daily. - VIT C/VIT E/LUTEIN/MIN/OMEGA-3 (OCUVITE ORAL) Take by mouth. - Multivitamin capsule Take 1 capsule by mouth once daily. I have interviewed and examined the patient. I have reviewed the medical record and/or the pre-anesthesia evaluation, pertinent labs, and test results. This contains updated information obtained within 48 hours of Surgery/Procedure. SIGNATURE: Cristian Parker MD PATIENT NAME: Son Hubbard DATE: May 01, 2022 TIME: 10:03 AM CSN: [id number] [facility] NURSING PROGon 05-01-2022 NURSING PROG HNO ID: [id number] Author: Deepika Stephen RN Service: ? Author Type: Registered Nurse Type: Nursing Progress Note Filed: 05/01/2022 11:05 AM Note Text: POST OP LEARNING RESPONSE INSTRUCTION PROVIDED TO: Patient and Spouse METHOD OF INSTRUCTION: Verbal instruction Demonstration-Hands on Learning PATIENT / FAMILY RESPONSE: Verbalizes understanding of: INFECTION MANAGEMENT-Signs and symptoms of an infection and importance of contacting the physician PAIN MANAGEMENT-Effective strategies to manage pain in addition to pain medication PHYSICAL RESTRICTIONS-Physical restrictions and recommendations after discharge from the hospital POST-OPERATIVE INSTRUCTIONS-Correct actions to take to reduce postoperative complications WORSENING CONDITION-Signs and symptoms of a worsening condition that warrant a call to the physician FOLLOW-UP PLAN: Patient instructed to call with any further issues SUPPLEMENTAL MATERIAL: Post op discharge instructions Post sedation instructions given REFERRAL (RECOMMENDATION): None Electronically Signed By: Deepika Stephen RN In Department: AMBULATORY SURGERY [facility] OPERATIVE NOon 05-01-2022 OPERATIVE NO HNO ID: [id number] Author: Mylene Almeida V, MD Service: Ophthalmology Author Type: Physician Type: Operative Report Filed: 05/01/2022 11:01 AM Note Text: OPERATIVE REPORT DATE OF SERVICE: May 01, 2022 PRIMARY SURGEON: Mylene Almeida M.D. ENGINEER CHIEF: None Procedure(s) (LRB): PHACOEMULSIFICATION CATARACT IMPLANT INTRAOCULAR LENS W/O ENDOSCOPIC CYCLOPHOTOCOAGULATION (Left) OPHTHALMIC BIOMETRY BY PARTIAL COHERENCE INTERFEROMETRY W/INTRAOCULAR LENS POWER CALCULATION (Left) ANESTHESIA: Topical with monitored anesthesia care. PREOPERATIVE DIAGNOSIS: Combined cataract POSTOPERATIVE DIAGNOSIS: Combined cataract, presbyopia OPERATIVE INDICATIONS: BAT 20/70 OPERATIVE PROCEDURE: The patient was admitted to the operating suite where an IV and BP, EKG, and O2 monitors were placed. Nasal oxygen was administered. The operative eye was confirmed, marked, then pretreated with 2.5% tropicamide and 1% phenylephrine eye drops. With the patient in the supine position, topical lidocaine gel 2% was placed in a small ribbon in the lower cul-de-sac. The patient was then prepped and draped in the usual sterile fashion for intraocular surgery. After a time-out confirming correct patient, correct eye, correct operation, presence of allergies, and correct implant, an eyelid speculum was placed. Under the operating microscope a beveled clear corneal incision was created temporally with a [place]man blade then a 2.4 mm keratome. The anterior chamber was reformed with Viscoat, after which the anterior capsule was opened centrally. Using the Utrata forceps a continuous curvilinear capsulorrhexis of approximately 5.5 mm round was created. Gentle hydrodissection was accomplished using preservative-free lidocaine on a 27-gauge cannula. Using the Shravan phacoemulsification unit with the Kelman curved tip, the anterior chamber was entered and the nucleus was removed while it was in the bag. The epinuclear ring was dissected into several segments, then removed using the phacoemulsification unit set to the desired aspiration flow rate and ultrasound parameters. It was necessary to use chopper forceps at various intervals to aid in the fragmentation of the dense lens material. Great care was taken not to violate the posterior capsule. The silicone-tipped I and A instrument was used to remove the cortex and buff off any remaining cataractous material from the posterior capsule. The capsular bag was then reformed with Discovisc and the following Intraocular lens implant Implant Name Type Inv. Item Serial No. Storage Solutions Architect Lot No. LRB No. Used Action Model No. LENS IOL 0D +19.5 TALAT UV ABS - [id number] Intraocular Lens LENS IOL 0D +19.5 TALAT UV ABS [id number] [employer] Left 1 Implanted [id number] was inserted through the lips of the wound into the capsular bag. Using the I and A instrument, the Discovisc was removed from the anterior chamber and capsular bag, and the implant was centered. Cefuroxime 1mg in 0.1 mL normal saline was introduced into the anterior chamber through the clear corneal incision using a 30 gauge cannula. The wound was checked and found to be watertight. At the end of the procedure, the cornea was clear, the anterior chamber was deep and clear, the pupil was round, the implant was centered within the capsular bag, and the posterior capsule was intact. The eyelid speculum was removed and prednisolone acetate 1% and timolol 0.5% eye drops were administered. A shield was affixed over the eye and the patient was sent to the recovery room, leaving the operating room in excellent condition. ESTIMATED BLOOD LOSS: <1mL SPECIMEN: None FINDINGS: Age-related cataract COMPLICATIONS: None Incision/Procedure Start Time: 10:53 AM Incision Close/Procedure End Time: 10:59 AM - Comanage with Dr Wilson; [facility] POD #1 Mylene ALMEIDA MD [facility] HISTORY PHYSICALon 2 HISTORY PHYSICAL HNO ID: [id number] Author: Chantal Can APRN.SENIOR PROCESS CONTROL TECH Service: ? Author Type: Nurse Practitioner Type: HANDP Filed: 04/24/2022 12:24 PM Note Text: HISTORY AND PHYSICAL EXAMINATION SERVICE DATE: 04/24/2022 SERVICE TIME: 12:06 PM PRIMARY CARE PHYSICIAN: Pat Newell MD, MD REASON FOR VISIT: Son Hubbard is a 77 year old female who is scheduled for Bilateral Cataracts at the request of Dr. Mylene Almeida V for consultation. My final recommendation will be communicated back to the requesting physician by way of shared medical record or letter. The patient has the following: ACTIVE PROBLEM LIST Knee Pain Chronic Bilateral Low Back Pain Without Sciatica Htn (Hypertension) Hyperlipidemia Acid Reflux Depression Anxiety Cad (Coronary Artery Disease) Subjective CHIEF COMPLAINT: Visual Changes HPI: 77 year old year old presents today with complaints of difficulty with vision for > 2 years. Found to have cataract on exam. Denies pain. No relieving factors. PAST MEDICAL HISTORY Diagnosis Date CAD (coronary artery disease) 04/24/2022 Depression GERD (gastroesophageal reflux disease) HTN (hypertension) Hyperlipidemia Knee pain Seasonal allergic rhinitis PAST SURGICAL HISTORY Procedure Laterality Date ARTHRP KNE CONDYLEANDPLATU MEDIALANDLAT COMPARTMENTS 05/2012 Knee replacement, total right PAST SURGICAL HISTORY OF 2010 right knee partial replacement PAST SURGICAL HISTORY OF bilat foot surgery for plantar faciitis PAST SURGICAL HISTORY OF arthroscopy bilat knees FAMILY HISTORY Problem Relation Age of Onset Coronary Artery Disease Father Cancer Mother SOCIAL HISTORY: Social History Tobacco Use Smoking status: Former Packs/day: 0.70 Years: 4.00 Pack years: 2.80 Types: Cigarettes Quit date: 04/28/1990 Years since quittin.0 Smokeless tobacco: Former Substance Use Topics Alcohol use: No Drug use: No Prior to Admission medications as of 04/24/22 1200 Medication Sig Last Dose Taking venlafaxine ER (EFFEXOR XR) 75 mg 24 hr capsule Take 75 mg by mouth once daily. Taking Yes TYRVAYA 0.03 mg/spray nasal spray Instill 1 spray into both nostrils twice a day Taking Yes traMADol (ULTRAM) 50 mg tablet Take 50 mg by mouth three times daily as needed. Taking Yes potassium chloride ER (K-DUR, KLOR-CON) 10 mEq tablet Take 10 mEq by mouth twice daily. Taking Yes cyclobenzaprine (FLEXERIL) 5 mg tablet Take 5 mg by mouth daily at bedtime. Taking Yes pantoprazole sodium (PANTOPRAZOLE ORAL) Take 40 mg by mouth. Taking Yes aspirin 81 mg cap Take by mouth. Taking Yes furosemide (LASIX) 20 mg tablet Take 20 mg by mouth. Taking Yes hydrALAZINE (APRESOLINE) 25 mg tablet Take 25 mg by mouth. Taking Yes losartan (COZAAR) 50 mg tablet Take 100 mg by mouth once daily. Taking Yes atorvastatin (LIPITOR) 10 mg tablet Take 10 mg by mouth once daily. Taking Yes VIT C/VIT E/LUTEIN/MIN/OMEGA-3 (OCUVITE ORAL) Take by mouth. Taking Yes Multivitamin capsule Take 1 capsule by mouth once daily. Taking Yes No medication comments found. ALLERGIES Allergen Reactions Serina Inhibitors Rash Amlodipine Swelling Codeine Vomiting Dilaudid [Hydromorp* Vomiting COVID VACCINATION STATUS: Fully vaccinated REVIEW OF SYSTEMS: PAIN ASSESSMENT: General: No weight loss, malaise or fevers. Neuro: No history of TIA's, stroke, HANGER OFF tumor, impaired sensorium, hemiplegia, paraplegia or quadraplegia. No neurological symptoms or problems. Respiratory: No history of current cough or dyspnea, or pneumonia in the past 6 weeks. No history of respiratory/pulmonary symptoms or problems. Cardiovascular: Negative for Recent WI, Angina, Arrhythmia, Chest Pain, PVD, Valvular Heart Disease, DVT/PE +HTN +HLD +CAD 03/2020 AND 06/2020- [facility] GI: Negative for Nausea, Vomiting, Abdominal pain, Hepatitis, Liver disease, Inflammatory bowel disease +GERD : No history of dysuria, frequency or incontinence,, stones or chronic kidney disease SEISMOMETER OPERATOR: Negative for abnormal vaginal bleeding, abnormal vaginal discharge. : N/A, No LMP recorded. Patient is postmenopausal. Endocrine: No history of diabetes. Has not taken steroids within the past 30 days. No history of endocrinological symptoms or problems. Hematology: Chronic anti-coagulation / platelet meds (Aspirin) Oncology: No history of CA metastasis, chemo within 30 days, or radiotherapy within 90 days. Has not lost 10% of body wt in 6 months. No history of oncological symptoms or problems. Psych: Anxiety, Depression Musculoskeletal: Back pain Skin: Negative for lesions, rash and itching. Objective PHYSICAL EXAM: VITALS: BP 136/76 Pulse 81 Temp (Src) 97.5 (Temporal) Resp 14 Ht 5' 4 (1.63m) Wt 176 lb (79.8kg) SpO2 98% BMI 30.20 kg/(m2). General: Alert and oriented Skin: Normal color, no rash, no lesions. HEENT: EOM, pupils equal, round and reactive. Cardiovascular: Normal S1 AN (more content not included)... Normal [facility] Covid-19 PCR (CVDTBH)on 03-12 SARS-CoV-2 (COVID-19) RNA ERICK+probe Ql (Unsp spec) Not detected Normal NOT DETECTED [facility] Comment on above: Result Comment: This test is not yet approved or cleared by the [place] FDA. When there are no FDA-approved or cleared tests available, and other criteria are met, FDA can make tests available under an emergency access mechanism called an Emergency Use Authorization (EUA). The EUA for this test is supported by the Leaf Conditioner of Health and Human Service's (HHS's) declaration that circumstances exist to justify the emergency use of in vitro diagnostics for the detection and/or diagnosis of the virus that causes COVID-19. This EUA will remain in effect (meaning this test can be used) for the duration of the COVID-19 declaration justifying emergency of IVDs, unless it is terminated or revoked by FDA (after which the test may no longer be used). When diagnostic testing is negative, the possibility of a false negative should be considered in the context of a patient's recent exposures and the presence of clinical signs and symptoms consistent with SARS-CoV-2. Performed By: #### [facility] #### [facility] [address] [place] [address] Dr. Isi Birmingham 01-11-2022 CNPN Telephone (OPHTLN) SON HUBBARD ([id number]) 1945 F Date Time Provider Department 01/11/22 MYLENE ALMEIDA During your visit today, we recorded the following information about you: Hernan Vences 01/11/2022 11:37 AM Signed LVM for patient to schedule at Cataract Evaluation with Dr. Almeida in [place] per faxed referral from Dr. Wilson. First attempt 01/11/22. Referral scanned into chart. Hernan Vences 01/16/2022 9:35 AM Signed Patient called Appointment Center and was scheduled with Dr. Taylor. We are waiting to confirm from Dr. iWlson office if it is ok for patient to stay scheduled with or to call and reschedule with Dr. Elle Vences 01/16/2022 9:41 AM Signed Patient has been rescheduled with Dr. Almeida for March 07 in [place] Allergies As of Date: 01/11/2022 Noted Allergy Reaction SERINA INHIBITORS 04/28/2012 2 - Rash CODEINE 04/28/2012 11 - Vomiting DILAUDID (HYDROMORPHONE (BULK)) 05/12/2012 11 - Vomiting Date Reviewed: 06/14/2016 Reviewed by: Chary Brink - Fully Assessed Reason for Visit: Appointment [[id number]] Prescriptions as of 01/16/2022 - NAPROXEN SODIUM (ALEVE ORAL) Take by mouth. - losartan (COZAAR) 50 mg tablet Take 50 mg by mouth once daily. - PSYLLIUM SEED, WITH DEXTROSE, (FIBER ORAL) Take by mouth. - niacin, inositol niacinate, 500 mg tab Take by mouth. - atorvastatin (LIPITOR) 10 mg tablet Take 10 mg by mouth once daily. - VIT C/VIT E/LUTEIN/MIN/OMEGA-3 (OCUVITE ORAL) Take by mouth. - AMLODIPINE 5 mg tablet once daily. - FLUOXETINE 20 mg capsule once daily. - Multivitamin capsule Take 1 capsule by mouth once daily. Problem List As Of Date 01/11/2022 Noted Resolved Knee pain [M25.569] 06/04/2012 Chronic bilateral low back pain without sciatic*06/14/2016 Encounter Status:Closed by HERNAN VENCES on 01/16/22 Normal [facility] C REACTIVE PROTEINon 021 CRP [Mass/Vol] 5.1 mg/L Normal 0.0-7.0 [facility] Comment on above: Performed By: #### 6 1405 #### [address] CERVICAL SPINE 2 OR 3 [facility] 03-12-2021 CERVICAL SPINE 2 OR 3 [facility] Department of Radiology [address] [place] [id number] ===== Patient Name: SON HUBBARD : 1945 Sex: F Age: Race: White Pt. Location: [facility] Patient Status: D Ordered Date: 03/12/2021 4:00:00 PM Completed Date: 03/12/2021 04:25 PM Requesting Provider: REZA HARVEY Attending Provider: REZA HARVEY Report Copy To: Signs & Symptoms: M54.2 Cervicalgia I10 History: Radhika Comments: Exam: CERVICAL SPINE 2 OR 3 S ===== CERVICAL SPINE 2 OR 3 VWS 03/12/2021 4:25 PM CLINICAL INDICATIONS: M54.2 Cervicalgia I10 TECHNOLOGIST COMMENTS: Patient complains of lower back, sacral and neck pain for years. No known trauma. PROTOCOL: AP, Odontoid and Lateral views were obtained. COMPARISON: None FINDINGS: There is approximately 2 mm retrolisthesis of C4 on C5 and of C5 on C6. AP alignment is normal at other levels. At upper cervical levels there is straightening and mild reversal of the normal cervical curvature. Degenerative changes include moderate disc space narrowing at C4-C5 and C5-C6, and anterior and small posterior spurs at both of these levels. There is also mild diffuse sclerotic change in facet joints. IMPRESSION: Moderate degenerative changes with multilevel disc space narrowing and reversal of the normal cervical curvature. Electronically signed: Rosendo Salvador. Transcribed by: [email or web address], User Resident: Electronically Signed by: ROSENDO SALVADOR @ 03/13/2021 08:58 AM Normal [facility] LUMBAR SPINE 2 OR 3 [facility] LUMBAR SPINE 2 OR 3 [facility] Department of Radiology [address] [place] [phone] ===== Patient Name: SON HUBBARD : 1945 Sex: F Age: Race: White Pt. Location: [facility] Patient Status: D Ordered Date: 03/12/2021 4:00:00 PM Completed Date: 03/12/2021 04:25 PM Requesting Provider: REZA HARVEY Attending Provider: REZA HARVEY Report Copy To: Signs & Symptoms: M54.5 Low back pain I10 History: Radhika Comments: Exam: LUMBAR SPINE 2 OR 3 VWS ===== LUMBAR SPINE 2 OR 3 VWS 03/12/2021 4:25 PM CLINICAL INDICATIONS: M54.5 Low back pain I10 TECHNOLOGIST COMMENTS: Patient complains of lower back, sacral and neck pain for years. No known trauma. QUESTION FOR RADIOLOGIST: PROTOCOL: AP, Lateral and L5-S1 spot film was obtained. COMPARISON: None. FINDINGS: AP alignment of lumbar vertebrae is normal throughout. There is been previous laminectomy at L3 and L4 with posterior metallic fusion with bilateral intrapedicular screws from C3 through L5 inclusive. There is also interbody fusion at the L3-L4 and L4-L5 levels. Prominent degenerative changes depicted at L2-L3 with severe disc space narrowing, endplate sclerosis, and small anterior and posterior spurs IMPRESSION: Severe degenerative changes at L2-L3. Postsurgical changes with fusion at lower lumbar levels. Electronically signed: Rosendo Salvador. Transcribed by: [email or web address], User Resident: Electronically Signed by: ROSENDO SALVADOR @ 03/13/2021 10:49 AM Normal [facility] MIN 4 [facility] Department of Radiology [address] [place] [phone] ===== Patient Name: SON HUBBARD : 1945 Sex: F Age: Race: White Pt. Location: [facility] Patient Status: D Ordered Date: 03/12/2021 4:00:00 PM Completed Date: 03/12/2021 04:25 PM Requesting Provider: REZA HARVEY Attending Provider: REZA HARVEY Report Copy To: Signs & Symptoms: M54.5 Low back pain I10 History: [place] Comments: Exam: S-I JOINTS MIN 4 S ===== S-I JOINTS MIN 4 [facility] 03/12/2021 4:25 PM CLINICAL INDICATIONS: M54.5 Low back pain I10 TECHNOLOGIST COMMENTS: Patient complains of lower back, sacral and neck pain for years. No known trauma. PROTOCOL: PA,AP and Bilateral Obliques were obtained. COMPARISON: None FINDINGS: Bones: No acute fracture or cortical irregularity noted. Osteophytic spurring noted at the anterior-inferior and superior aspect of the SI joint. There is partial sacralization at the right side of L5. There is surgical hardware related to lumbar fusion L3-L5. Joints: The SI joints have mild degenerative pathology, more prominent at the left SI joint.. There are sclerotic margins visualized. There is mild chronic degenerative changes noted at the left hip joint. The SI joints unremarkable. Soft tissues Soft Tissue: Pelvic phleboliths noted.. IMPRESSION: 1. No acute osseous abnormalities. 2. Mild degenerative changes at the SI joint, more prominent on the left. 3. Mild degenerative changes of the left hip joint. 4. Partial sacralization of the L5 vertebral segment. Approved by:Harrison Ayon03/13/2021 9:10 AM. I, Brisa Jackson,have reviewed the image(s) and agree with the findings in this report. Electronically signed: Brisa Jackson. Transcribed by: [email or web address], User Resident: HARRISON HUNTER Electronically Signed by: BRISA JACKSON @ 03/13/2021 10:46 AM I personally read this/these film(s) with this resident Normal [facility] SEDIMENTATION RATEon 021 SED RATE 37 mm/hr High 0-20 [facility] Comment on above: Performed By: #### 5 [id number] #### [facility] [address] Cardiovascular Lab Reporton 05-12-[address] [facility] Patient Name: Son Hubbard [facility] MR #: [id number] Physician: Clinotn Pham Department of Cornelio Doran Medicine Service Date: 05/11/2020 Division of Birthdate: 1945 Cardiology Room #: Adult Cardiovascular Services [place] [address] Cardiovascular Laboratory Report INDICATION: The patient is a 75-year-old woman, who recently was evaluated in Cardiology Clinic because of a class 3 heart failure symptoms. She was evaluated by initially an echocardiography, then a transesophageal echocardiogram that showed clfd-vp-[id number] mitral regurgitation and mild aortic valve regurgitation. Her cardiac catheterization in March 2020 showed a 99% stenosis to the mid LAD, which was treated by a Synergy drug-eluting stent and an 80% stenosis in the proximal RCA, which was left for staged intervention. Today, she was brought for staged intervention to the RCA. PROCEDURES: 1. Successful balloon dilatation and drug-eluting stenting of 80% stenosis in the proximal RCA reduced to 0% by a Synergy 3.0 x 20 mm drug-eluting stent post dilated to 3.0 mm at high pressures. 2. Procedure performed via left radial artery access. METHODS: Procedure was explained to the patient with risks and benefits. She signed informed consent. She was brought to labor operator in a fasting state. Modified Dom's test was favorable on the left. Access in the left radial artery was obtained using micropuncture technique. A 6-German x 11 cm Hydrophilic sheath was advanced. Verapamil was given through the sheath and heparin was administered intravenously. Initial catheter advancement required an angled Glidewire to cross the brachial and radial tortuousities. A multipurpose guiding catheter was initially chosen due to the downward and anterior takeoff of the right coronary artery. However, this was not able to engage the right coronary artery. This was exchanged to a 6-German AR2 guiding catheter followed by a 6-German AL1 guiding catheter, which was able to engage the right coronary artery. Initial angiography was performed. A Xianguo wire was advanced into the distal RCA. An Emerge 3.0 x 15 mm balloon was used to perform balloon dilatation at 8 atmospheres in the proximal RCA. Angiography revealed suboptimal results, this was treated using a Synergy 3.0 x 20 mm drug-eluting stent deployed at 12 atmospheres and post dilated using NC Quantum [place] 3.0 x 15 mm noncompliant balloon inflated at 18 atmospheres repeatedly throughout the stented segment. Angiography revealed excellent result with reduction of the stenosis to 0%. No evidence of dissection or perforation. The guiding catheter and wire were removed. The procedure was concluded. A TR band was used for hemostasis in the left radial artery. She was loaded with 300 mg of Plavix at the end of the procedure as she was maintained previously on aspirin and Plavix. She tolerated the procedure well. She will be observed for 4 hours and then discharged to home. TOTAL FLUORO TIME: 15.13 minutes. TOTAL AIR KERMA: 457 mGy. TOTAL CONTRAST VOLUME: 110 mL. HEMODYNAMICS: AO 156/76, mean 112. RIGHT CORONARY ANGIOGRAPHY: The right coronary artery arises from the right cusp anteriorly with a downward takeoff. It is a dominant vessel. It has an 80% proximal stenosis. This was reduced to 0% by a Synergy drug-eluting stent. The rest of the RCA has minimal disease. RECOMMENDATIONS: 1. Aspirin and statin therapy for life. 2. Plavix therapy for minimum of 1 year after recent unstable angina presentation and multivessel drug-eluting stenting. 3. Follow up in Cardiology Clinic. Electronically Signed by: Clinton Doran M.D. 05/17/2020 06:01 P Clinton Doran M.D. Date Dict: 05/11/2020/01:56 P/Clinton Doran M.D. Date Trans: 05/12/2020 06:46 A/ginnao [id number] cc: Pat Newell M.D. [address], [facility] [id number] Normal [facility] BNP (B-TYPE NATRIURETIC PEPT EFE)on 04-05-2020 Natriuretic peptide B (Bld) [Mass/Vol] 26 pg/mL Normal 0-100 [facility] Comment on above: Order Comment: No: D o not add to previous draw Result Comment: Give n the appropriate clinical setting a BNP result of >100 pg/mL indicates congestive heart failure. Performed By: #### 8 [id number] #### [facility] [address] [facility] [address], [facility] CBC COMPLETE BLOOD COUNTon 0 04-05-2020 Erythrocyte distribution width (RBC) [Ratio] 13.1 % Normal 11.5-15.0 [facility] Comment on above: Order Comment: No: D o not add to previous draw Performed By: #### 5 [id number] #### [facility] [address] [place] [address], [facility] Hematocrit (Bld) [Volume fraction] 42.1 % Normal 36.0-45.0 [place] Comment on above: Order Comment: No: D o not add to previous draw Performed By: #### 5 [id number] #### [facility] [address] [place] [address], [facility] Hemoglobin (Bld) [Mass/Vol] 14.3 g/dL Normal 12.0-15.0 [facility] Comment on above: Order Comment: No: D o not add to previous draw Performed By: #### 5 0608 #### [facility] [address] [place] [address], [facility] MCH (RBC) [Entitic mass] 31.0 pg Normal 27.0-33.0 [facility] Comment on above: Order Comment: No: D o not add to previous draw Performed By: #### 5 0608 #### [facility] [address] [place] [address], [facility] MCHC (RBC) [Mass/Vol] 34.0 g/dL Normal 32.0-35.0 [facility] Comment on above: Order Comment: No: D o not add to previous draw Performed By: #### 5 0608 #### [facility] [address] [place] [address], [facility] MCV (RBC) [Entitic vol] 91.3 fL Normal 82.0-98.0 [facility] Comment on above: Order Comment: No: D o not add to previous draw Performed By: #### 5 [id number] #### [facility] [address] [facility] [place] [address], [facility] Nucleated RBC/100 WBC (Bld) [Ratio] 0 % Normal 0-0 [facility] Comment on above: Order Comment: No: D o not add to previous draw Performed By: #### 5 [id number] #### [facility] [address] [facility] [place] [address], [facility] PLAT CNT 249 10*3/uL Normal 150-400 [facility] Comment on above: Order Comment: No: D o not add to previous draw Performed By: #### 5 0608 #### [facility] [address] [place] [id number], [facility] RBC (Bld) [#/Vol] 4.61 10*6/uL Normal 3.80-5.00 [facility] Comment on above: Order Comment: No: D o not add to previous draw Performed By: #### 5 0608 #### [facility] [address] [place] [id number], [facility] WBC (Bld) [#/Vol] 6.32 10*3/uL Normal 4.00-10.60 [facility] Comment on above: Order Comment: No: D o not add to previous draw Performed By: #### 5 0608 #### [facility] [address] [place] [address], [facility] Erythrocyte distribution width (RBC) [Ratio] 13.0 % Normal 11.5-15.0 [facility] Comment on above: Order Comment: No: D o not add to previous draw Performed By: #### 5 0608 #### [facility] [address] [place] [address], [facility] Hematocrit (Bld) [Volume fraction] 40.2 % Normal 36.0-45.0 [facility] Comment on above: Order Comment: No: D o not add to previous draw Performed By: #### 5 [id number] #### [facility] [address] [place] [address], [facility] Hemoglobin (Bld) [Mass/Vol] 13.7 g/dL Normal 12.0-15.0 [facility] Comment on above: Order Comment: No: D o not add to previous draw Performed By: #### 5 0608 #### [facility] [address] [place] [address], [place] MCH (RBC) [Entitic mass] 31.4 pg Normal 27.0-33.0 [facility] Comment on above: Order Comment: No: D o not add to previous draw Performed By: #### 5 0608 #### [facility] [address] [place] [address], [facility] MCHC (RBC) [Mass/Vol] 34.1 g/dL Normal 32.0-35.0 [facility] Comment on above: Order Comment: No: D o not add to previous draw Performed By: #### 5 0608 #### [facility] [address] [place] [address], [facility] MCV (RBC) [Entitic vol] 92.0 fL Normal 82.0-98.0 [facility] Comment on above: Order Comment: No: D o not add to previous draw Performed By: #### 5 0608 #### [facility] [address] [place] [address], [facility] Nucleated RBC/100 WBC (Bld) [Ratio] 0 % Normal 0-0 [facility] Comment on above: Order Comment: No: D o not add to previous draw Performed By: #### 5 0608 #### [facility] [address] [place] [address], [facility] PLAT CNT 209 10*3/uL Normal 150-400 [facility] Comment on above: Order Comment: No: D o not add to previous draw Performed By: #### 5 0608 #### [facility] [address] RBC (Bld) [#/Vol] 4.37 10*6/uL Normal 3.80-5.00 [facility] Comment on above: Order Comment: No: D o not add to previous draw Performed By: #### 5 0608 #### [facility] [address] [facility] [place] [address], [facility] WBC (Bld) [#/Vol] 5.97 10*3/uL Normal 4.00-10.60 [facility] Comment on above: Order Comment: No: D o not add to previous draw Performed By: #### 5 0608 #### [facility] [address] TROPONIN-Ion 04-05-2020 Troponin I.cardiac [Mass/Vol] 0.07 ng/mL High 0.00-0.04 [facility] Comment on above: Order Comment: This order is a replacement of the rejected order with accession number [id number]. Result Comment: REFE AMNA RANGES: 0.00 - 0.04 ng/ml NORMAL 0.05 - 0.50 ng/ml INDETERMINATE > 0.50 ng/ml CONSISTENT WITH AN M.I. Performed By: #### 3 5200 #### [facility] [address] Cardiovascular Lab Reporton 04-04-[address] [facility] Patient Name: Son Hubbard [facility] S MR #: [id number] Department of Physician: Clinton Doran M.D. Division of Service Date: 04/04/2020 Cardiology Birthdate: 1945 Adult Cardiovascular Room #: [facility] [address] [facility] [place] [address] Cardiovascular Laboratory Report INDICATION: Son Hubbard is a 75-year-old woman, who was recently evaluated in Cardiology Clinic after a recent admission to the [facility] with acute onset shortness of breath and finding on echocardiogram of possible severe mitral regurgitation. She continued to be symptomatic and was referred for further investigation of her recent onset symptoms by a transesophageal echocardiography that showed evidence of rztn-ic-ysqncfav mitral regurgitation. She was then referred for cardiac catheterization. PROCEDURE: 1. Right heart catheterization. 2. Access into the right internal jugular vein under ultrasound guidance. 3. Bilateral selective coronary angiography from the right radial access. 4. Successful balloon dilatation and drug-eluting stenting of 99% mid LAD stenosis reduced to 0% by deployment of a Synergy 3.0 x 16 mm drug-eluting stent post dilated to 3.25 mm at high pressures. 5. Administration of intracoronary nitroglycerin. METHODS: Procedure was explained to the patient with risks and benefits. She signed the informed consent. She was brought to the labor operator in a fasting state. The right neck area was prepped and draped in the usual fashion. Using micropuncture technique and ultrasound guidance, the right internal jugular vein was accessed. A 6-German x 11 cm sheath was placed. A 6-German Mendez catheter was used for right catheterization with measurement of pressures and calculation of cardiac output using the estimated Elizabeth method. Mendez catheter was removed. Modified Dom's test was favorable on the right. Access in the right radial artery was obtained using micropuncture technique. A 6-German x 11 cm Hydrophilic sheath was advanced. Verapamil was given through the sheath and heparin was administered intravenously. Bilateral selective coronary angiography was then performed using 5-German JR5 and 5-German multipurpose catheters for engagement of the right coronary artery and a 5-German JL3.5 diagnostic catheter for engagement of the left coronary artery. Catheters were removed. Additional heparin was given as needed and therapeutic ACT confirmed during the rest of the procedure. A 6-German XB3.0 guiding catheter was advanced and used to engage the left main coronary ostium. A Xianguo wire was advanced into the distal LAD. Balloon dilatation in the mid LAD was performed using Emerge 3.0 x 12 mm balloon inflated at 6 atmospheres. Angiography revealed suboptimal results. This was treated using a Synergy 3.0 x 16 mm drug-eluting stent deployed at 11 atmospheres and post dilated using NC Quantum [place] 3.25 x 12 mm noncompliant balloon inflated at 18 atmospheres throughout the length of the stented segment. Angiography after administration intracoronary nitroglycerin showed excellent result with reduction of the stenosis to 0%. No evidence of dissection or perforation. The guiding catheter was removed. Procedure was concluded. She was loaded with 600 mg of Plavix at the end of the procedure. A TR band was used for hemostasis in the right radial artery. The right internal jugular venous sheath was removed. Manual compression applied for hemostasis. She will be admitted for further observation. Total Fluoro Time: 13.01 minute. Total Air Kerma: 145 mGy. Total Contrast Volume: 120 mL. HEMODYNAMICS: RA 9, RV 48/7, 12. PA 50/22, mean 34. Pulmonary capillary wedge pressure 20. AO 164/87, mean 115. Cardiac output 5.34. Cardiac index 2.75. PA sat 74%, AO sat 98%. CORONARY ANGIOGRAPHY: This is a right dominant circulation. Left Main: This arises from left coronary cusp. It bifurcates into left anterior descending and circumflex vessels. Left main is free of disease. Left anterior descending: This is a large vessel. It gives rise to a large first diagonal branch, which has a 40% stenosis in the proximal segment. The mid LAD has a 99% stenosis around the takeoff of a moderate-sized second diagonal branch. That stenosis was reduced to 0% by a Synergy drug-eluting stent, which jailed the moderate-size diagonal branch. That diagonal branch remained widely patent at the ostium. At the end of the intervention, the distal LAD has minimal disease. Circumflex vessel: This is nondominant. It has minimal disease. Right coronary artery: This arises from the right coronary cusp with a downward takeoff and was best engaged with a multipurpose catheter. The proximal RCA has an 80% stenosis. The rest of the RCA is free of disease. SUMMARY OF FINDINGS: 1. Severe 2- (more content not included)... Normal [facility] *SARS-CoV-2 COVID-19on 03-31 SARS-CoV-2 (COVID-19) RNA ERICK+probe Ql (Unsp spec) Not detected Normal Not Detected [facility] Comment on above: Order Comment: The A ptima SARS-CoV-2 assay is a nucleic acid amplification test intended for the qualitative detection of RNA from SARS-CoV-2 isolated and purified from nasopharyngeal (SENIOR WEB ANALYST),oropharyngeal (OP), nasal swab, sputum, and bronchoalveolar lavage (BAL) specimens from patients with signs and symptoms of infection who are suspected of COVID-19. Results are for the identification of SARS-CoV-2 RNA. The SARS-CoV-2 RNA is generally detectable during the acute phase of infection. The Aptima SARS-CoV-2 Assay on the [employer] and [employer] Fusion system is intended for use by laboratory personnel specifically instructed and trained in the operation of the [place] and [employer] Fusion system. The Aptima SARS-CoV-2 assay is only for use under the Food and Drug Administration Emergency Use Authorization. Testing is limited to laboratories certified under the Clinical Laboratory Improvement Amendments of 1988 (CLIA), 42 U.S.C. ???263a, to perform high complexity tests. Not Detected: Not detected does not preclude SARS-CoV-2 infection and should not be used as the sole basis for patient management decisions. Not detected results must be combined with clinical observations, patient history, and epidemiological information. Performed By: #### 3 [id number] #### [facility] [address] [place], [place] [address] CONSULTATIONon 03-02-2019 CONSULTATION [facility] [address] [place] [address] CONSULTATION PATIENT NAME: SON HUBBARD : 1945 MED REC NO: [id number] ROOM: [facility] ACCOUNT NO: [id number] ADMIT DATE: 02/24/2019 PROVIDER: Franics Holguin MD CONSULT DATE: 03/02/2019 ATTENDING: Dr. Reed. HISTORY OF PRESENT ILLNESS: This is a 74-year-old right-handed female admitted to the hospital for an elective lumbar surgery for spondylosis of L3-L4, L4-L5. The patient underwent the surgery on 23 of February. I was consulted. The patient had just shown some memory issues and some difficulty with attention and therefore consultation. On close questioning, it does appear that she is improving overtime. She was on pain medication, which has been discontinued or decreased. She is still on gabapentin and Prozac. She had sleep deprivation as well. She reports at home she is independent. She pays the bill, she drives, she is not disoriented, and she did not report any memory issues at home. She denies any headaches, nausea, vomiting, chest pain, palpitations, or shortness of breath. She has not had any seizures, head injury, or trauma. She has not been admitted for stroke-like symptoms or seizures. PAST MEDICAL HISTORY: Otherwise unremarkable except for hypertension. She has history of mitral valve regurgitation, hyperlipidemia, lumbar radiculopathy, hypertriglyceridemia. PAST SURGICAL HISTORY: She had knee surgery in the past on the right. SOCIAL HISTORY: She is a former smoker. MEDICATIONS: Amlodipine, Flexeril, she is on Colace, Prozac, Neurontin, Cozaar, Protonix, and Ultram, which is decreased. PHYSICAL EXAMINATION: GENERAL: She is in no acute distress. General examination reveals no skin lesions or skin mesa. There is no pedal edema. There is no cyanosis or clubbing. NECK: Supple. There are no meningeal signs. CARDIOVASCULAR SYSTEM: S1 and S2 are normal. No murmurs appreciated. HANGER OFF EXAMINATION: Pupils are equal and reactive. Eye movements are conjugate. Speech is normal. Tongue is midline. Palate moves symmetrically. EXTREMITIES: Examination of extremities reveals no pronator drift. Fine finger movements are symmetrical. Strength is 5/5. Reflexes are 2+. She has mild ataxic stance. She hurts when she walks . Her white count is 5.9, hemoglobin 14.1, hematocrit 39.9, and platelets of 209,000. Urine cultures pending. I do not see any other investigations are done. IMPRESSION: Encephalopathy related to underlying medication, sleep deprivation, and metabolic encephalopathy. The patient does not have any other deficits of any nature. I am not quite sure if she has developed any degree of memory issues, though this can only be followed as an outpatient as this is an acute case, very difficult to ascertain any diagnosis of cognitive decline. We will arrange for thyroid function tests, B12 and folate levels, and follow her as an outpatient if needed. Thank you Dr. Reed for asking us to assist in the care of the patient. FRANCIS HOLGUIN MD [id number] Doc#: [id number] CC: Normal [facility] Homocysteineon 03-02-2019 Homocysteine 14.5 umol/L Normal 0.0-15.0 [facility] Comment on above: Performed By: #### P T #### [facility] [address] [place] [address] TSH w/out Reflexon 9 TSH Qn 3.890 uIU/mL Critically high 0.440-3.86 [facility] Comment on above: Performed By: #### P T #### [facility] [address] [place] [address] Vitamin B12 and Folateon Cobalamin (Vitamin B12) [Mass/Vol] 537 pg/mL Normal 232-1245 [facility] Comment on above: Performed By: #### P T #### [facility] [address] [place] [address] Folate 11.6 ng/mL Normal 7.3-26.1 [facility] Comment on above: Result Comment: As o f 16, the methodology has changed. Results from this methodology should not be compared with results from previous methodology. Performed By: #### P T #### [facility] [address] [place] [address] Urinalysis, reflex to cultur erik 02-28-2019 Bilirubin Ql (U) Negative Normal Negative [facility] Comment on above: Performed By: #### B MP #### [facility] [address] [place] [address] Clarity (U) Clear Normal Clear [facility] Comment on above: Performed By: #### B MP #### [facility] [address] [place] [address] Color (U) Yellow Normal Straw/[place] [facility] Comment on above: Performed By: #### B MP #### [facility] [address] [place] [address] Glucose Ql (U) Negative Normal Negative [facility] Comment on above: Performed By: #### B MP #### [facility] [address] [place] [address] Hemoglobin Ql (U) Negative Normal Negative [facility] Comment on above: Performed By: #### B MP #### [facility] [address] [place] [address] Ketones Ql (U) Negative Normal Negative [facility] Comment on above: Performed By: #### B MP #### [facility] [address] [place] [address] Leukocyte esterase Test strip Ql (U) Negative Normal Negative [facility] Comment on above: Performed By: #### B MP #### [facility] [address] [place] [address] Nitrite Ql (U) Negative Normal Negative [facility] Comment on above: Performed By: #### B MP #### [facility] [address] [place] [address] pH (U) 7.0 [pH] Normal 5.0-9.0 [facility] [facility] Comment on above: Performed By: #### B MP #### [facility] [address] [place] [address] Protein Ql (U) Negative Normal Negative [facility] Comment on above: Performed By: #### B MP #### [facility] [address] [place] [address] Specific gravity (U) [Rel density] 1.007 Normal 1.005-1.03 [facility] Comment on above: Performed By: #### B MP #### [facility] [address] [place] [address] Urine Reflexed to Culture Not Indicated Normal [facility] Comment on above: Performed By: #### B MP #### [facility] [address] [place] [address] Urobilinogen Qn (U) 0.2 {Tyrel'U}/dL Normal < 2.0 [facility] Comment on above: Performed By: #### B MP #### [facility] [address] [place] [address] CBC With Platelet No Differe ntialon 02-25-2019 Erythrocyte distribution width (RBC) [Ratio] 13.5 % Normal 11.5-14.5 [facility] Comment on above: Performed By: #### B MP #### [facility] [address] [place] [address] Hematocrit (Bld) [Volume fraction] 33.3 % Low 37.0-47.0 [facility] Comment on above: Performed By: #### B MP #### [facility] [address] [place] [address] Hemoglobin (Bld) [Mass/Vol] 11.7 g/dL Low 12.0-16.0 [facility] Comment on above: Performed By: #### B MP #### [facility] [address] [place] [address] MCH (RBC) [Entitic mass] 33.0 pg Critically high 27.0-31.3 [facility] Comment on above: Performed By: #### B MP #### [facility] [address] [place] [address] MCHC (RBC) [Mass/Vol] 35.1 % Normal 33.0-37.0 [facility] Comment on above: Performed By: #### B MP #### [facility] [address] [place] [address] MCV (RBC) [Entitic vol] 94.1 fL Normal 82.0-100.0 [facility] Comment on above: Performed By: #### B MP #### [facility] [address] [place] [address] Platelets (Bld) [#/Vol] 180 10*3/uL Normal 130-400 [facility] Comment on above: Performed By: #### B MP #### [facility] [address] [place] [address] RBC (Bld) [#/Vol] 3.54 10*6/uL Low 4.20-5.40 [facility] Comment on above: Performed By: #### B MP #### [facility] [address] [place] [address] WBC (Bld) [#/Vol] 12.1 10*3/uL Critically high 4.8-10.8 [facility] Comment on above: Performed By: #### B MP #### [facility] [address] [place] [address] Basic Metabolic Panel Reflex Mgon 02-24-2019 Anion gap [Moles/Vol] 13 mmol/L Normal 9-15 [facility] Comment on above: Performed By: #### B MP #### [facility] [address] [place] [address] Calcium [Mass/Vol] 8.8 mg/dL Normal 8.5-9.9 [facility] Comment on above: Performed By: #### B MP #### [facility] [address] [place] [address] Chloride [Moles/Vol] 100 mmol/L Normal 95-107 [facility] Comment on above: Performed By: #### B MP #### [facility] [address] [place] [address] CO2 [Moles/Vol] 24 mmol/L Normal 20-31 [facility] Comment on above: Performed By: #### B MP #### [facility] [address] [place] [address] Creatinine [Mass/Vol] 0.96 mg/dL Critically high 0.50-0.90 [facility] Comment on above: Performed By: #### B MP #### [facility] [address] [place] [address] GFR/1.73 sq M predicted among blacks MDRD (S/P/Bld) [Vol rate/Area] mL/min/{1.73_m2} Normal >60 [facility] Comment on above: Result Comment: >60 mL/min/1.73m2 EGFR, calc. for ages 18 and older using the MDRD formula (not corrected for weight), is valid for stable renal function. Performed By: #### B MP #### [facility] [address] [place] [address] GFR/1.73 sq M.predicted MDRD (S/P/Bld) [Vol rate/Area] 57.0 mL/min/{1.73_m2} Low >60 [facility] Comment on above: Result Comment: >60 mL/min/1.73m2 EGFR, calc. for ages 18 and older using the MDRD formula (not corrected for weight), is valid for stable renal function. Performed By: #### B MP #### [facility] [address] [place] [address] Glucose [Mass/Vol] 146 mg/dL Critically high 70-99 [facility] Comment on above: Performed By: #### B MP #### [facility] [address] [place] [address] Potassium reflex Mg 5.4 mEq/L Critically high 3.4-4.9 [facility] Comment on above: Performed By: #### B MP #### [facility] [address] [place] [address] Sodium [Moles/Vol] 137 mmol/L Normal 135-144 [facility] Comment on above: Performed By: #### B MP #### [facility] [address] [place] [address] Urea nitrogen [Mass/Vol] 18 mg/dL Normal 8-23 [facility] Comment on above: Performed By: #### B MP #### [facility] [address] [place] [address] CBC With Platelet and Differ entialon 02-24-2019 Basophils (Bld) [#/Vol] 0.0 10*3/uL Normal 0.0-0.2 [facility] Comment on above: Performed By: #### C BCWD #### [facility] [address] [place] [address] Basophils/100 WBC (Bld) 0.1 % Normal [facility] Comment on above: Performed By: #### C BCWD #### [facility] [address] [place] [address] Eosinophils (Bld) [#/Vol] 0.0 10*3/uL Normal 0.0-0.7 [facility] Comment on above: Performed By: #### C BCWD #### [facility] [address] [place] [address] Eosinophils/100 WBC (Bld) 0.0 % Normal [facility] Comment on above: Performed By: #### C BCWD #### [facility] [address] [place] [address] Erythrocyte distribution width (RBC) [Ratio] 13.4 % Normal 11.5-14.5 [facility] Comment on above: Performed By: #### C BCWD #### [facility] [address] [place] [address] Hematocrit (Bld) [Volume fraction] 34.6 % Low 37.0-47.0 [facility] Comment on above: Performed By: #### C BCWD #### [facility] [address] [place] [address] Hemoglobin (Bld) [Mass/Vol] 12.0 g/dL Normal 12.0-16.0 [facility] Comment on above: Performed By: #### C BCWD #### [facility] [address] [place] [address] Lymphocytes (Bld) [#/Vol] 0.9 10*3/uL Low 1.0-4.8 [facility] Comment on above: Performed By: #### C BCWD #### [facility] [address] [place] [address] Lymphocytes/100 WBC (Bld) 6.5 % Normal [facility] Comment on above: Performed By: #### C BCWD #### [facility] [address] [place] [address] MCH (RBC) [Entitic mass] 32.3 pg Critically high 27.0-31.3 [facility] Comment on above: Performed By: #### C BCWD #### [facility] [address] [place] [address] MCHC (RBC) [Mass/Vol] 34.7 % Normal 33.0-37.0 [facility] Comment on above: Performed By: #### C BCWD #### [facility] [address] [place] [address] MCV (RBC) [Entitic vol] 93.2 fL Normal 82.0-100.0 [facility] Comment on above: Performed By: #### C BCWD #### [facility] [address] [place] [address] Monocytes (Bld) [#/Vol] 1.4 10*3/uL Critically high 0.2-0.8 [facility] Comment on above: Performed By: #### C BCWD #### [facility] [address] [place] [address] Monocytes/100 WBC (Bld) 10.2 % Normal [facility] Comment on above: Performed By: #### C BCWD #### [facility] [address] [place] [address] Neutrophils (Bld) [#/Vol] 11.3 10*3/uL Critically high 1.4-6.5 [facility] Comment on above: Performed By: #### C BCWD #### [facility] [address] [place] [address] Neutrophils/100 WBC (Bld) 83.2 % Normal [facility] Comment on above: Performed By: #### C BCWD #### [facility] [address] [place] [address] Platelets (Bld) [#/Vol] 208 10*3/uL Normal 130-400 [facility] Comment on above: Performed By: #### C BCWD #### [facility] [address] [place] [address] RBC (Bld) [#/Vol] 3.71 10*6/uL Low 4.20-5.40 [facility] Comment on above: Performed By: #### C BCWD #### [facility] [address] [place] [address] WBC (Bld) [#/Vol] 13.7 10*3/uL Critically high 4.8-10.8 [facility] Comment on above: Performed By: #### C BCWD #### [facility] [address] [place] [address] Culture, Urineon 02-24-2019 Culture, Urine ORDERED BY: CHRISTIE REED SOURCE: Urine Clean Catch COLLECTED: 02/24/19 17:31 ANTIBIOTICS AT ELISEO.: RECEIVED : 02/24/19 17:31 Culture, Urine FINAL 02/26/19 08:22 No growth 24 hours Normal [facility] Comment on above: Performed By: #### B MP #### [facility] [address] [place] [address] POCT Glucoseon 02-24-2019 Glucose [Mass/Vol] 133 mg/dL Critically high 60-[address] [facility] ([place] [place] Comment on above: Performed By: #### B MP #### [facility] [address] [place] [address] POC Performed on ACCU-CHEK Normal [facility] Comment on above: Performed By: #### B MP #### [facility] [address] [place] [address] Urinalysis, reflex to cultur erik 02-24-2019 Bilirubin Ql (U) Negative Normal Negative [facility] Comment on above: Performed By: #### B MP #### [facility] [address] [place] [address] Clarity (U) Clear Normal Clear [facility] Comment on above: Performed By: #### B MP #### [facility] [address] [place] [address] Color (U) Yellow Normal Straw/[place] [facility] Comment on above: Performed By: #### B MP #### [facility] [address] [place] [address] Glucose Ql (U) Negative Normal Negative [facility] Comment on above: Performed By: #### B MP #### [facility] [address] [place] [address] Hemoglobin Ql (U) SMALL Abnormal Negative [facility] Comment on above: Performed By: #### B MP #### [facility] [address] [place] [address] Ketones Ql (U) Negative Normal Negative [facility] Comment on above: Performed By: #### B MP #### [facility] [address] [place] [address] Leukocyte esterase Test strip Ql (U) TRACE Abnormal Negative [facility] Comment on above: Performed By: #### B MP #### [facility] [address] [place] [address] Nitrite Ql (U) Negative Normal Negative [facility] Comment on above: Performed By: #### B MP #### [facility] [address] [place] [address] pH (U) 6.0 [pH] Normal 5.0-9.0 [facility] Comment on above: Performed By: #### B MP #### [facility] [address] [place] [address] Protein Ql (U) Negative Normal Negative [facility] Comment on above: Performed By: #### B MP #### [facility] [address] [place] [address] Specific gravity (U) [Rel density] 1.010 Normal 1.005-1.03 [facility] Comment on above: Performed By: #### B MP #### [facility] [address] [place] [address] Urine Reflexed to Culture YES Normal [facility] Comment on above: Performed By: #### B MP #### [facility] [address] [place] [address] Urobilinogen Qn (U) 0.2 {Tyrel'U}/dL Normal < 2.0 [facility] Comment on above: Performed By: #### B MP #### [facility] [address] [place] [address] Urine Microscopicon 02-25-20 19 Bacteria LM.HPF (Urine sed) [#/Area] Negative Normal [facility] Comment on above: Performed By: #### B MP #### [facility] [address] [place] [address] RBC (U) [#/Vol] 0-2 Normal 0-5 [facility] Comment on above: Performed By: #### B MP #### [facility] [address] [place] [address] Urine Epithelial Cells Auto 3-5 Normal 0-5 [facility] Comment on above: Performed By: #### B MP #### [facility] [address] [place] [address] Urine Hyaline Casts Auto 0-1 Normal 0-5 [facility] Comment on above: Performed By: #### B MP #### [facility] [address] [place] [address] Urine WBC Auto 6-10 Abnormal 0-5 [facility] Comment on above: Performed By: #### B MP #### [facility] [address] [place] [address] XR LUMBAR SPINE (2-3 VIEWS)o n 02-24-2019 XR LUMBAR SPINE (2-3 VIEWS) EXAMINATION: XR LUMBAR SPINE (2-3 VIEWS) HISTORY: postop . TECHNIQUE: XR LUMBAR SPINE (2-3 VIEWS) COMPARISON: 02/22/2019 RESULT: Lumbar spine: Counting reference: Lumbosacral junction. For the purposes of this report, L4-5 is considered the level of the iliac crest and assume there are 5 lumbar-type vertebrae. Anatomic variant: None. Interval postsurgical changes from posterior decompression with bilateral mina and pedicle screw fixation extending from L3 through L5, with interbody fusion at L3-L4 and L4-L5. Hardware appears intact with appropriate alignment postoperative swelling posteriorly. Surgical skin ida.. Vertebral body heights maintained without fracture. Multilevel mild disc space narrowing. SI joints intact. Visualized hips unremarkable. No other significant abnormality. IMPRESSION: Interval postsurgical changes lower lumbar spine without complication. Interpreted by: Ramón Bonds MD Signed by: Ramón Bonds MD 02/24/19 Final result Normal [facility] Basic Metabolic Panel Reflex Mgon 02-23-2019 Anion gap [Moles/Vol] 14 mmol/L Normal 9-15 [facility] Comment on above: Performed By: #### B MPX #### [facility] [address] [place] [address] Calcium [Mass/Vol] 9.1 mg/dL Normal 8.5-9.9 [facility] Comment on above: Performed By: #### B MPX #### [facility] [address] [place] [address] Chloride [Moles/Vol] 106 mmol/L Normal 95-107 [facility] Comment on above: Performed By: #### B MPX #### [facility] [address] [place] [address] CO2 [Moles/Vol] 20 mmol/L Normal 20-31 [facility] Comment on above: Performed By: #### B MPX #### [facility] [address] [place] [address] Creatinine [Mass/Vol] 0.96 mg/dL Critically high 0.50-0.90 [facility] Comment on above: Performed By: #### B MPX #### [facility] [address] [place] [address] GFR/1.73 sq M predicted among blacks MDRD (S/P/Bld) [Vol rate/Area] mL/min/{1.73_m2} Normal >60 [facility] Comment on above: Result Comment: >60 mL/min/1.73m2 EGFR, calc. for ages 18 and older using the MDRD formula (not corrected for weight), is valid for stable renal function. Performed By: #### B MPX #### [facility] [address] [place] [address] GFR/1.73 sq M.predicted MDRD (S/P/Bld) [Vol rate/Area] 57.0 mL/min/{1.73_m2} Low >60 [facility] Comment on above: Result Comment: >60 mL/min/1.73m2 EGFR, calc. for ages 18 and older using the MDRD formula (not corrected for weight), is valid for stable renal function. Performed By: #### B MPX #### [facility] [address] [place] [address] Glucose [Mass/Vol] 139 mg/dL Critically high 70-[address] [facility] ([place] [place] Comment on above: Performed By: #### B MPX #### [facility] [address] [place] [address] Potassium reflex Mg 4.6 mEq/L Normal 3.4-4.9 [facility] Comment on above: Performed By: #### B MPX #### [facility] [address] [place] [address] Sodium [Moles/Vol] 140 mmol/L Normal 135-144 [facility] Comment on above: Performed By: #### B MPX #### [facility] [address] [place] [address] Urea nitrogen [Mass/Vol] 20 mg/dL Normal 8-23 [facility] Comment on above: Performed By: #### B MPX #### [facility] [address] [place] [address] CBC With Platelet No Differe ntialon 02-23-2019 Erythrocyte distribution width (RBC) [Ratio] 13.4 % Normal 11.5-14.5 [facility] Comment on above: Performed By: #### C BCND #### [facility] [address] [place] [address] Hematocrit (Bld) [Volume fraction] 38.8 % Normal 37.0-47.0 [facility] Comment on above: Performed By: #### C BCND #### [facility] [address] [place] [address] Hemoglobin (Bld) [Mass/Vol] 13.6 g/dL Normal 12.0-16.0 [facility] Comment on above: Performed By: #### C BCND #### [facility] [address] [place] [address] MCH (RBC) [Entitic mass] 32.2 pg Critically high 27.0-31.3 [facility] Comment on above: Performed By: #### C BCND #### [facility] [address] [place] [address] MCHC (RBC) [Mass/Vol] 35.1 % Normal 33.0-37.0 [facility] Comment on above: Performed By: #### C BCND #### [facility] [address] [place] [address] MCV (RBC) [Entitic vol] 91.6 fL Normal 82.0-100.0 [facility] Comment on above: Performed By: #### C BCND #### [facility] [address] [place] [address] Platelets (Bld) [#/Vol] 212 10*3/uL Normal 130-400 [facility] Comment on above: Performed By: #### C BCND #### [facility] [address] [place] [address] RBC (Bld) [#/Vol] 4.24 10*6/uL Normal 4.20-5.40 [facility] Comment on above: Performed By: #### C BCND #### [facility] [address] [place] [address] WBC (Bld) [#/Vol] 8.3 10*3/uL Normal 4.8-10.8 [facility] Comment on above: Performed By: #### C BCND #### [facility] [address] [place] [address] FLUORO FOR SURGICAL PROCEDUR ESon 02-23-2019 FLUORO FOR SURGICAL PROCEDURES EXAMINATION: FLUORO FOR SURGICAL PROCEDURES, 02/23/2019 11:09 AM CLINICAL HISTORY: 74-YEAR-OLD FEMALE, COMPARISONS: NONE AVAILABLE TECHNIQUE: 3 intraoperative spot images of the lumbar spine were obtained. Fluoroscopy time: 100.8 seconds Fluoroscopic dose: 61.71 mGy FINDINGS: Intraoperative spot images of the lumbar spine demonstrate localization of L3-L5. Pedicle screws are placed at this level. Scattered tiny spacers are placed at L3-4 and L4-5. Laminectomies performed at L3 and L4. IMPRESSION: INTRAOPERATIVE SPOT IMAGES FOR L3-L5 POSTERIOR SPINAL FUSION AND DISCECTOMIES Interpreted by: Nona Yates MD Signed by: Nona Yates MD 02/23/19 Final result Normal [facility] Surgical Specimenon 02-24-20 Surgical Specimen [facility] [address] [place] [address] [id number] FINAL SURGICAL PATHOLOGY REPORT Patient Name: SON HUBBARD Accession No: [id number] Age Sex: 1945 Location: [facility] [id number] Account No: [id number] Collected: 02/23/2019 Med Rec No: [id number] Received: 02/24/2019 Attend Phys: FAN RAMIREZ Completed: 02/26/2019 Perform Phys: FAN RAMIREZ FINAL DIAGNOSIS: 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 ALIFA/ALIFA CLINICAL INFORMATION: Disc herniation, degenerative disease, radiculopathy, spondylolisthesis, facet arthropathy. SPECIMEN: Disc GROSS DESCRIPTION: The specimen received in formalin in a container labeled with the patient's name and designated as spine consists of multiple bony and soft tissue fragments measuring in aggregate 3.5 x 3.0 x 0.5 cm. Sections account maintenance representative are submitted in three cassettes labeled A1 through A3 after a brief decalcification. ALIFA/SCDAN CPT: 21959 X1 [id number] X1 CHIDI LUNA M.D. 02/26/2019 Electronically signed out by Page 1 of 1 [facility] Comment on above: Performed By: #### B MP #### [facility] [address] [place] [address] Basic Metabolic Panelon 02-08 Anion gap [Moles/Vol] 13 mmol/L Normal 9-15 [facility] Comment on above: Performed By: #### B MP #### [facility] [address] [place] [address] Calcium [Mass/Vol] 9.7 mg/dL Normal 8.5-9.9 [facility] Comment on above: Performed By: #### B MP #### [facility] [address] [place] [address] Chloride [Moles/Vol] 105 mmol/L Normal 95-107 [facility] Comment on above: Performed By: #### B MP #### [facility] [address] [place] [address] CO2 [Moles/Vol] 24 mmol/L Normal 20-31 [facility] Comment on above: Performed By: #### B MP #### [facility] [address] [place] [address] Creatinine [Mass/Vol] 1.00 mg/dL Critically high 0.50-0.90 [facility] Comment on above: Performed By: #### B MP #### [facility] [address] [place] [address] GFR/1.73 sq M predicted among blacks MDRD (S/P/Bld) [Vol rate/Area] mL/min/{1.73_m2} Normal >60 [facility] Comment on above: Result Comment: >60 mL/min/1.73m2 EGFR, calc. for ages 18 and older using the MDRD formula (not corrected for weight), is valid for stable renal function. Performed By: #### B MP #### [facility] [address] [place] [address] GFR/1.73 sq M.predicted MDRD (S/P/Bld) [Vol rate/Area] 54.3 mL/min/{1.73_m2} Low >60 [facility] Comment on above: Result Comment: >60 mL/min/1.73m2 EGFR, calc. for ages 18 and older using the MDRD formula (not corrected for weight), is valid for stable renal function. Performed By: #### B MP #### [facility] [address] [place] [address] Glucose [Mass/Vol] 93 mg/dL Normal 70-99 [facility] Comment on above: Performed By: #### B MP #### [facility] [address] [place] [address] Potassium [Moles/Vol] 4.1 mmol/L Normal 3.4-4.9 [facility] Comment on above: Performed By: #### B MP #### [facility] [address] [place] [address] Sodium [Moles/Vol] 142 mmol/L Normal 135-144 [facility] Comment on above: Performed By: #### B MP #### [facility] [address] [place] [address] Urea nitrogen [Mass/Vol] 20 mg/dL Normal 8-23 [facility] Comment on above: Performed By: #### B MP #### [facility] [address] [place] [address] CBC With Platelet No Differe ntialon 02-22-2019 Erythrocyte distribution width (RBC) [Ratio] 13.2 % Normal 11.5-14.5 [facility] Comment on above: Performed By: #### C BCND #### [facility] [address] [place] [address] Hematocrit (Bld) [Volume fraction] 39.9 % Normal 37.0-47.0 [facility] Comment on above: Performed By: #### C BCND #### [facility] [address] [place] [address] Hemoglobin (Bld) [Mass/Vol] 14.1 g/dL Normal 12.0-16.0 [facility] Comment on above: Performed By: #### C BCND #### [facility] [address] [place] [address] MCH (RBC) [Entitic mass] 32.5 pg Critically high 27.0-31.3 [facility] Comment on above: Performed By: #### C BCND #### [facility] [address] [place] [address] MCHC (RBC) [Mass/Vol] 35.3 % Normal 33.0-37.0 [facility] Comment on above: Performed By: #### C BCND #### [facility] [address] [place] [address] MCV (RBC) [Entitic vol] 92.2 fL Normal 82.0-100.0 [facility] Comment on above: Performed By: #### C BCND #### [facility] [address] [place] [address] Platelets (Bld) [#/Vol] 206 10*3/uL Normal 130-400 [facility] Comment on above: Performed By: #### C BCND #### [facility] [address] [place] [address] RBC (Bld) [#/Vol] 4.33 10*6/uL Normal 4.20-5.40 [facility] Comment on above: Performed By: #### C BCND #### [facility] [address] [place] [address] WBC (Bld) [#/Vol] 5.9 10*3/uL Normal 4.8-10.8 [facility] Comment on above: Performed By: #### C BCND #### [facility] [address] [place] [address] Partial Thromboplastin Timeo n 02-22-2019 aPTT Coag (Bld) [Time] 36.9 s Critically high 24.4-36.8 [facility] Comment on above: Result Comment: Effe ctive 02/18/2019: Please note methodology and/or reference ranges have changed. Performed By: #### P TT #### [facility] [address] [place] [address] Prothrombin Timeon 9 INR Coag (PPP) [Relative time] 0.9 {INR} Normal [facility] Comment on above: Result Comment: Warf esther Therapy INR Therapeutic: 2.0-3.0 With Mechanical Valve: >2.5 Low-intensity Therapeutic Range: 1.5-2.0 Mod-intensity Therapeutic Range: 2.0-3.0 High-intensity Therapeutic Range: 2.5-3.5 HIgh-intensity Therapeutic Range: 3.0-4.0 Common Critical/Alarm Value: 5.0 Common Upper Limit Reported: 10.0 Effective 02/18/2019: Please note methodology and/or reference ranges have changed. Performed By: #### P T #### [facility] [address] [place] [address] PT Coag (PPP) [Time] 12.6 s Normal 12.3-14.9 [facility] Comment on above: Result Comment: Effe ctive 02/18/19 Please note methodology and/or reference ranges have changed. Performed By: #### P T #### [facility] [address] [place] [id number] Type and Screen Capture 3 sc rn cellon 02-22-2019 Type and Screen Capture 3 scrn cell PATIENT: STEVIE Wilson LOC: ROBERT SAMEERA# : [id number] : 1945 SEX: F ORDERED BY: RISSA Hale ORDERED : 02/22/2019 07:32 COLLECTED: 02/22/2019 09:40 ORDER : [id number] RECEIVED : 02/22/2019 09:40 Confirmation type needs to be drawn. --------- TEST NAME RESULT UNITS RANGES ABN FL ST ABORH Capture O NEG F Antibody 3 Cell Scrn Captu NEG F -------- Normal [facility] Comment on above: Performed By: #### T S3C #### [facility] [address] [place] [address] XR SPINE ENTIRE (2-3 VIEWS)o n 02-22-2019 XR SPINE ENTIRE (2-3 VIEWS) EXAMINATION: XR SPINE ENTIRE (2-3 VIEWS) CLINICAL HISTORY: 74-year-old with history of lumbar disc herniations. Preoperative study COMPARISONS: None available. FINDINGS: Standing frontal and lateral views of the spine were obtained with the benefit of scoliosis technique. The scoliosis technique and patient body habitus does limit osseous assessment. On the frontal view there are 12 rib-bearing vertebral bodies. 12th ribs are hypoplastic. There are 4 lumbar-like vertebral bodies and a transitional L5. There is a long scoliosis of the thoracolumbar spine convex to the left. Angle of curvature measured from the superior endplate of T3 to the inferior endplate of L3 is 14 degrees. There may be a positional component of the a scoliosis. On these limited views no acute fractures or destructive osseous abnormalities. On the lateral view overlap from the patient's arms compromise evaluation of the lower cervical/ upper thoracic spine. There is mild straightening of the cervical lordosis. The thoracic kyphosis measured from the superior endplate of T3 to the inferior endplate of T12 is 37 degrees. The lumbar lordosis measured from the superior endplate of L1 to the inferior endplate of L5 is 41 degrees. No subluxations in the visualized vertebral bodies. There is narrowing of the disc spaces with endplate sclerosis throughout the lumbar spine. Mild disc space narrowings are appreciated in the mid to lower cervical spine as well. IMPRESSION: SCOLIOSIS AND ANGLES OF LUMBAR LORDOSIS/THORACIC KYPHOSIS DETAILED ABOVE. Interpreted by: Hope Rapp MD Signed by: Hope Rapp MD 02/23/19 Final result Normal [facility] No Panel Information [facility] Encounters Encounter Date Encounter Type Care Provider Facility Start: 07-08-2023 End: 07-09-[address] [facility] Start: 06-11-2023 End: 06-11-2023 ambulatory Referral Self Facility:[facility] Start: 06-11-2023 End: 06-11-2023 ambulatory MD Pat Newell Work Phone: [facility] Work Phone: Start: 06-11-2023 End: 06-11-2023 Patient encounter procedure MD Pat Newell Work Phone: [facility] Work Phone: Start: 03-28-2023 End: 03-28-2023 ambulatory CLINTON DORAN [facility] Start: 11-12-2022 End: 11-13-2022 ambulatory MADELYN DICKSON Facility:[facility] Start: 10-18-2022 End: 10-18-2022 ambulatory PAT NEWELL Facility:[facility] Start: 10-10-2022 End: 10-10-2022 ambulatory PAT NEWELL Facility:[facility] Start: 10-10-2022 End: 10-10-2022 Patient encounter procedure Mylene Almeida MD Work Phone: Ophthalmology Comment on above: PCO (posterior capsu lar opacification), bilateral (Primary Dx); Pseudophakia of both eyes; Vitreous degeneration, bilateral; Retinal pigment epithelial mottling of macula Start: 09-25-2022 End: 09-25-[address] PAT NEWELL . Facility:[facility] Start: 07-25-2022 End: 07-26-[address] CLINTON DORAN Facility:[facility] Start: 07-10-2022 End: 07-11-[address] CLINTON DORAN Facility:[facility] Start: 06-10-2022 End: 06-10-2022 ambulatory MD Pat Newell Work Phone: [facility] Work Phone: Start: 06-10-2022 End: 06-10-2022 Patient encounter procedure MD Pat Newell Work Phone: [facility] Start: 05-15-2022 End: 05-15-2022 ambulatory MYLENE ALMEIDA Facility:[facility] Start: 05-02-2022 End: 05-02-2022 ambulatory MYLENE ALMEIDA Facility:[facility] Start: 05-02-2022 End: 05-02-2022 Patient encounter procedure Mylene Almeida MD Work Phone: Ophthalmology Comment on above: S/P cataract extract ion and insertion of intraocular lens, left (Primary Dx) Start: 05-01-2022 End: 05-02-2022 ambulatory NAILA CEDILLO Facility:[facility] Start: 05-01-2022 End: 05-01-2022 Patient encounter procedure Naila Cedillo OD Work Phone: Ophthalmology Comment on above: Superficial punctate keratitis of left eye (Primary Dx); Pseudophakia Start: 05-01-2022 End: 05-01-2022 ambulatory MYLENE ALMEIDA Facility:[facility] Start: 04-24-2022 End: 04-24-2022 ambulatory MYLENE ALMEIDA Facility:[facility] Start: 04-24-2022 Encounter for other preprocedural examination MYLENE ALMEIDA [facility] Start: 04-24-2022 End: 04-24-2022 Patient encounter procedure Eye Measurements Work Phone: Ophthalmology Comment on above: Combined forms of ag e-related cataract of both eyes Start: 04-01-2022 End: 04-01-[address] PAT NEWELL . Facility: Start: 03-07-2022 End: 03-07-2022 Patient encounter procedure Mylene Almeida MD Work Phone: Ophthalmology Comment on above: Combined forms of ag e-related cataract of both eyes (Primary Dx); Posterior vitreous detachment of right eye Combined forms of ag e-related cataract of both eyes (Primary Dx) Start: 03-07-2022 End: 03-07-2022 ambulatory PAT NEWELL Facility:[facility] Start: 01-11-2022 Telephone encounter Mylene henderson MD Work Phone: Ophthalmology Comment on above: Appointment Start: 05-11-2020 End: 05-12-2020 ambulatory PAT NEWELL Facility:[facility] Start: 04-04-2020 End: 04-05-2020 ambulatory PAT NEWELL Facility:[facility] Start: 02-24-2019 End: 03-05-2019 Evaluation and management of inpatient CHRISTIE REED [facility] Start: 02-23-2019 End: 02-24-2019 Evaluation and management of inpatient FAN RAMIREZ [facility] Start: 02-23-2019 End: 02-26-2019 Patient encounter procedure FAN RAMIREZ [facility] Start: 02-22-2019 End: 02-24-2019 Patient encounter procedure FAN RAMIREZ [facility] Start: 02-22-2019 End: 02-27-2019 Patient encounter procedure FAN Santana ASHLEY [facility] Procedures Date Procedure Procedure Detail Performing Clinician Start: 06-11-2023 Screening mammograph y of bilateral breasts MD Pat Newell Work Phone: Start: 10-10-2022 End: 10-10-2022 Post-cataract laser surgery Mylene Almeida MD Work Phone: Start: 06-10-2022 Screening mammograph y of bilateral breasts MD Pat Newell Work Phone: Start: 04-24-2022 IOL BIOMETRY W/ IOL CALC OU (BOTH EYES) Mylene Almeida MD Work Phone: Start: 03-07-2022 End: 03-07-2022 Computerized ophthalmic imaging retina Mylene Almeida MD Work Phone: Start: 03-05-2019 INCENTIVE SPIROMETRY RT FAN ASHLEY Start: 03-05-2019 DISCHARGE PATIENT FAN YO O Start: 03-05-2019 INCENTIVE SPIROMETRY RT FAN ASHLEY Start: 03-05-2019 INCENTIVE SPIROMETRY RT FAN ASHLEY Start: 03-05-2019 INCENTIVE SPIROMETRY RT FAN ASHLEY Start: 03-05-2019 INITIATE OXYGEN THER APY PROTOCOL FAN ASHLEY Start: 03-05-2019 INCENTIVE SPIROMETRY RT FAN ASHLEY Start: 03-05-2019 INCENTIVE SPIROMETRY RT FAN ASHLEY Start: 03-04-2019 INCENTIVE SPIROMETRY RT FAN ASHLEY Start: 03-04-2019 INCENTIVE SPIROMETRY RT FAN ASHLEY Start: 03-04-2019 INCENTIVE SPIROMETRY RT FAN ASHLEY Start: 03-04-2019 INCENTIVE SPIROMETRY RT FAN ASHLEY Start: 03-04-2019 INCENTIVE SPIROMETRY RT FAN ASHLEY Start: 03-04-2019 INCENTIVE SPIROMETRY RT FAN ASHLEY Start: 03-04-2019 INCENTIVE SPIROMETRY RT FAN ASHLEY Start: 03-04-2019 INITIATE OXYGEN THER APY PROTOCOL FAN ASHLEY Start: 03-04-2019 INCENTIVE SPIROMETRY RT FAN ASHLEY Start: 03-04-2019 INCENTIVE SPIROMETRY RT FAN ASHLEY Start: 03-03-2019 INCENTIVE SPIROMETRY RT FAN ASHLEY Start: 03-03-2019 INCENTIVE SPIROMETRY RT FAN ASHLEY Start: 03-03-2019 INCENTIVE SPIROMETRY RT FAN ASHLEY Start: 03-03-2019 INCENTIVE SPIROMETRY RT FAN ASHLEY Start: 03-03-2019 INCENTIVE SPIROMETRY RT FAN ASHLEY Start: 03-03-2019 APPLY HEAT TO AFFECTED AREA FAN ASHLEY Start: 03-03-2019 INCENTIVE SPIROMETRY RT FAN ASHLEY Start: 03-03-2019 INCENTIVE SPIROMETRY RT FAN ASHLEY Start: 03-03-2019 INITIATE OXYGEN THER APY PROTOCOL FAN ASHLEY Start: 03-03-2019 INCENTIVE SPIROMETRY RT FAN ASHLEY Start: 03-03-2019 INCENTIVE SPIROMETRY RT FAN ASHLEY Start: 03-02-2019 INCENTIVE SPIROMETRY RT FAN ASHLEY Start: 03-02-2019 INCENTIVE SPIROMETRY RT FAN ASHLEY Start: 03-02-2019 INCENTIVE SPIROMETRY RT FAN ASHLEY Start: 03-02-2019 Assay of homocysteine B O ASHLEY Start: 03-02-2019 Assay of thyroid stimulating hormone tsh FAN ASHLEY Start: 03-02-2019 Cyanocobalamin vitamin b-12 FAN ASHLEY Start: 03-02-2019 AMB EXTERNAL REFERRA L TO OCCUPATIONAL THERAPY FAN ASHLEY Start: 03-02-2019 AMB EXTERNAL REFERRA L TO PHYSICAL THERAPY FAN ASHLEY Start: 03-02-2019 AMB EXTERNAL REFERRA L TO SPEECH THERAPY FAN ASHLEY Start: 03-02-2019 INCENTIVE SPIROMETRY RT FAN ASHLEY Start: 03-02-2019 INCENTIVE SPIROMETRY RT FAN ASHLEY Start: 03-02-2019 INCENTIVE SPIROMETRY RT FAN ASHLEY Start: 03-02-2019 INCENTIVE SPIROMETRY RT FAN ASHLEY Start: 03-02-2019 INITIATE OXYGEN THER APY PROTOCOL FAN ASHLEY Start: 03-02-2019 INCENTIVE SPIROMETRY RT FAN ASHLEY Start: 03-02-2019 INCENTIVE SPIROMETRY RT FAN ASHLEY Start: 03-01-2019 INCENTIVE SPIROMETRY RT FAN ASHLEY Start: 03-01-2019 INCENTIVE SPIROMETRY RT FNA ASHLEY Start: 03-01-2019 INCENTIVE SPIROMETRY RT FAN ASHLEY Start: 03-01-2019 IP CONSULT TO NEUROLOGY FAN ASHLEY Start: 03-01-2019 INCENTIVE SPIROMETRY RT FAN ASHLEY Start: 03-01-2019 INCENTIVE SPIROMETRY RT FAN ASHLEY Start: 03-01-2019 INCENTIVE SPIROMETRY RT FAN ASHLEY Start: 03-01-2019 INCENTIVE SPIROMETRY RT FAN ASHLEY Start: 03-01-2019 INITIATE OXYGEN THER APY PROTOCOL FAN ASHLEY Start: 03-01-2019 INCENTIVE SPIROMETRY RT FAN ASHLEY Start: 03-01-2019 INCENTIVE SPIROMETRY RT FAN ASHLEY Start: 02-28-2019 INCENTIVE SPIROMETRY RT FAN ASHLEY Start: 02-28-2019 Urnls dip stick/tabl et rgnt auto w/o microscopy FAN ASHLEY Start: 02-28-2019 INCENTIVE SPIROMETRY RT FAN ASHLEY Start: 02-28-2019 INCENTIVE SPIROMETRY RT FAN ASHLEY Start: 02-28-2019 INCENTIVE SPIROMETRY RT FAN ASHLEY Start: 02-28-2019 INCENTIVE SPIROMETRY RT FAN ASHLEY Start: 02-28-2019 INCENTIVE SPIROMETRY RT FAN ASHLEY Start: 02-28-2019 INCENTIVE SPIROMETRY RT FAN ASHLEY Start: 02-28-2019 INITIATE OXYGEN THER APY PROTOCOL FAN ASHLEY Start: 02-28-2019 INCENTIVE SPIROMETRY RT FAN ASHLEY Start: 02-28-2019 INCENTIVE SPIROMETRY RT FAN ASHLEY Start: 02-27-2019 INCENTIVE SPIROMETRY RT FAN ASHLEY Start: 02-27-2019 INCENTIVE SPIROMETRY RT FAN ASHLEY Start: 02-27-2019 INCENTIVE SPIROMETRY RT FAN ASHLEY Start: 02-27-2019 INCENTIVE SPIROMETRY RT FAN ASHLEY Start: 02-27-2019 INCENTIVE SPIROMETRY RT FAN ASHLEY Start: 02-27-2019 INCENTIVE SPIROMETRY RT FAN ASHLEY Start: 02-27-2019 INCENTIVE SPIROMETRY RT FAN ASHLEY Start: 02-27-2019 INITIATE OXYGEN THER APY PROTOCOL FAN ASHLEY Start: 02-27-2019 INCENTIVE SPIROMETRY RT FAN ASHLEY Start: 02-27-2019 INCENTIVE SPIROMETRY RT FAN ASHLEY Start: 02-26-2019 INCENTIVE SPIROMETRY RT FAN ASHLEY Start: 02-26-2019 INCENTIVE SPIROMETRY RT FAN ASHLEY Start: 02-26-2019 INCENTIVE SPIROMETRY RT FAN ASHLEY Start: 02-26-2019 INCENTIVE SPIROMETRY RT FAN ASHLEY Start: 02-26-2019 INCENTIVE SPIROMETRY RT FAN ASHLEY Start: 02-26-2019 NURSING COMMUNICATION B O ASHLEY Start: 02-26-2019 INCENTIVE SPIROMETRY RT FAN ASHLEY Start: 02-26-2019 INCENTIVE SPIROMETRY RT FAN ASHLEY Start: 02-26-2019 INITIATE OXYGEN THER APY PROTOCOL FAN ASHLEY Start: 02-26-2019 INCENTIVE SPIROMETRY RT FAN ASHLEY Start: 02-26-2019 INTAKE AND OUTPUT FAN YO O Start: 02-26-2019 INCENTIVE SPIROMETRY RT FAN ASHLEY Start: 02-25-2019 INCENTIVE SPIROMETRY RT FAN ASHLEY Start: 02-25-2019 INCENTIVE SPIROMETRY RT FAN ASHLEY Start: 02-25-2019 INCENTIVE SPIROMETRY RT FAN ASHLEY Start: 02-25-2019 INCENTIVE SPIROMETRY RT FAN ASHLEY Start: 02-25-2019 TAXATION INSPECTOR EVAL AND TREAT FAN Y OO Start: 02-25-2019 INCENTIVE SPIROMETRY RT FAN ASHLEY Start: 02-25-2019 INCENTIVE SPIROMETRY RT FAN ASHLEY Start: 02-25-2019 INCENTIVE SPIROMETRY RT FAN ASHLYE Start: 02-25-2019 INITIATE OXYGEN THER APY PROTOCOL FAN ASHLEY Start: 02-25-2019 IP CONSULT TO HOSPITALIST FAN ASHLEY Start: 02-25-2019 Blood count complete automated FAN ASHLEY Start: 02-25-2019 INCENTIVE SPIROMETRY RT FAN ASHLEY Start: 02-25-2019 DAILY WEIGHTS FAN ASHLEY Start: 02-25-2019 INTAKE AND OUTPUT FAN YO O Start: 02-25-2019 INCENTIVE SPIROMETRY RT FAN ASHLEY Start: 02-24-2019 INCENTIVE SPIROMETRY RT FAN ASHLEY Start: 02-24-2019 Gluc bld gluc mntr d ev cleared fda spec home use FAN ASHLEY Start: 02-24-2019 INCENTIVE SPIROMETRY RT FAN ASHLEY Start: 02-24-2019 Culture bacterial quanttative colony count urine FAN ASHLEY Start: 02-24-2019 Urinalysis microscopic only FAN ASHLEY Start: 02-24-2019 Urnls dip stick/tabl et rgnt auto w/o microscopy FAN ASHLEY Start: 02-24-2019 IP CONSULT TO NEUROSURGERY FAN ASHLEY Start: 02-24-2019 ENCOURAGE DEEP BREAT BARRY AND COUGHING FAN ASHLEY Start: 02-24-2019 FULL CODE FAN ASHLEY Start: 02-24-2019 IP CONSULT TO CASE MANAGEMENT FAN ASHLEY Start: 02-24-2019 IP CONSULT TO HOSPITALIST FAN ASHLEY Start: 02-24-2019 IP CONSULT TO RECREA TION THERAPY FAN ASHLEY Start: 02-24-2019 OT EVAL AND TREAT FAN YO O Start: 02-24-2019 PLACE INTERMITTENT PNEUMATIC COMPRESSION DEVICE FAN ASHLEY Start: 02-24-2019 PT EVAL AND TREAT FAN YO O Start: 02-24-2019 PULSE OXIMETRY SPOT CHECK FAN ASHLEY Start: 02-24-2019 REASON FOR NO CHEMIC AL VTE PROPHYLAXIS FAN ASHLEY Start: 02-24-2019 FALL PRECAUTIONS FAN ASHLEY Start: 02-24-2019 INITIATE OXYGEN THER APY PROTOCOL FAN ASHLEY Start: 02-24-2019 MEASURE WEIGHT FAN ASHLEY Start: 02-24-2019 NOTIFY PHYSICIAN (SPECIFY) FAN ASHLEY Start: 02-24-2019 PATIENT STATUS (DIRECT) FAN ASHLEY Start: 02-24-2019 REM[address] AND [address] T ED HOSE DAILY FAN ASHLEY Start: 02-24-2019 TURN PATIENT FAN ASHLEY Start: 02-24-2019 VITAL SIGNS FAN ASHLEY Start: 02-24-2019 ACTIVITY TOLERATED B O ASHLEY Start: 02-24-2019 AMBULATE PATIENT FAN ASHLEY Start: 02-24-2019 DIET GENERAL FAN ASHLEY Start: 02-24-2019 INCENTIVE SPIROMETRY RT FAN ASHLEY Start: 02-24-2019 INTAKE AND OUTPUT FAN YO O Start: 02-24-2019 NEURO/VASCULAR CHECKS B O ASHLEY Start: 02-24-2019 WOUND CARE FAN ASHLEY Start: 02-24-2019 DISCHARGE PATIENT FAN YO O Start: 02-24-2019 INCENTIVE SPIROMETRY RT FAN ASHLEY Start: 02-24-2019 Radex spine lumbosac ral 2/3 views FAN ASHLEY Start: 02-24-2019 INCENTIVE SPIROMETRY RT FAN ASHLEY Start: 02-24-2019 PULSE OXIMETRY, CONTINUOUS FAN ASHLEY Start: 02-24-2019 INCENTIVE SPIROMETRY RT FAN ASHLEY Start: 02-24-2019 INCENTIVE SPIROMETRY RT FAN ASHLEY Start: 02-24-2019 INITIATE OXYGEN THER APY PROTOCOL FAN ASHLEY Start: 02-24-2019 PULSE OXIMETRY, CONTINUOUS FAN ASHLEY Start: 02-24-2019 INCENTIVE SPIROMETRY RT FAN ASHLEY Start: 02-24-2019 Blood count complete auto&auto difrntl wbc FAN ASHLEY Start: 02-24-2019 Comprehensive metabo lic panel FAN ASHLEY Start: 02-24-2019 PULSE OXIMETRY, CONTINUOUS FAN ASHLEY Start: 02-24-2019 DIET GENERAL FAN ASHLEY Start: 02-24-2019 ACTIVITY TOLERATED B O ASHLEY Start: 02-24-2019 AMBULATE PATIENT FAN ASHLEY Start: 02-24-2019 CATHETER REMOVAL FAN ASHLEY Start: 02-24-2019 DAILY WEIGHTS FAN ASHLEY Start: 02-24-2019 OT EVAL AND TREAT FAN YO O Start: 02-24-2019 PT EVAL AND TREAT FAN YO O Start: 02-24-2019 PULSE OXIMETRY, CONTINUOUS FAN ASHLEY Start: 02-24-2019 INCENTIVE SPIROMETRY RT FAN ASHLEY Start: 02-23-2019 INCENTIVE SPIROMETRY RT FAN ASHLEY Start: 02-23-2019 PULSE OXIMETRY, CONTINUOUS FAN ASHLEY Start: 02-23-2019 INCENTIVE SPIROMETRY RT FAN ASHLEY Start: 02-23-2019 PLACE INTERMITTENT PNEUMATIC COMPRESSION DEVICE FAN ASHLEY Start: 02-23-2019 PULSE OXIMETRY, CONTINUOUS FAN ASHLEY Start: 02-23-2019 ADVANCE DIET TOLE RATED (NURSING COMMUNICATION) FAN ASHLEY Start: 02-23-2019 INCENTIVE SPIROMETRY RT FAN ASHLEY Start: 02-23-2019 INITIATE OXYGEN THER APY PROTOCOL FAN ASHLEY Start: 02-23-2019 INTAKE AND OUTPUT FAN YO O Start: 02-23-2019 NEURO/VASCULAR CHECKS B O ASHLEY Start: 02-23-2019 TOBACCO CESSATION EDUCATION FAN ASHLEY Start: 02-23-2019 WOUND CARE FAN ASHLEY Start: 02-23-2019 FULL CODE FAN ASHLEY Start: 02-23-2019 NOTIFY PHYSICIAN (SPECIFY) FAN ASHLEY Start: 02-23-2019 VITAL SIGNS FAN ASHLEY Start: 02-23-2019 TELEMETRY MONITORING FAN ASHLEY Start: 02-23-2019 Blood count complete automated FAN ASHLEY Start: 02-23-2019 Comprehensive metabo lic panel FAN ASHLEY Start: 02-23-2019 PATIENT STATUS (FROM ED OR OR/PROCEDURAL) FAN ASHLEY Start: 02-23-2019 TRANSFER PATIENT AFN ASHLEY Start: 02-23-2019 FLUORO FOR SURGICAL PROCEDURES FAN ASHLEY Start: 02-23-2019 Level iv surg pathol ogy gross&microscopic exam FAN ASHLEY Start: 02-23-2019 Level iv surg pathol ogy gross&microscopic exam FAN ASHLEY Start: 02-22-2019 Radex entir thrc lmb r crv sac spi w/skull 2/3 vw FAN ASHLEY Start: 02-22-2019 Blood count complete automated FAN ASHLEY Start: 02-22-2019 Prothrombin time FAN ASHLEY Start: 02-22-2019 Thromboplastin time partial plasma/whole blood FAN ASHLEY Start: 02-22-2019 Basic metabolic pane l calcium total FAN ASHLEY Start: 02-22-2019 TYPE AND SCREEN FAN ASHLEY Start: 02-22-2019 Ecg routine ecg w/le ast 12 lds w/i&r FAN ASHLEY Start: 06-14-2016 Adult depression scr eening assessment Mylene Wayne MD Work Phone: Plan of Treatment Date Care Activity Detail Author Start: 03-07-2023 End: 08-29-2023 IOL BIOMETRY W/ IOL CALC OU (BOTH EYES) IOL BIOMETRY W/ IOL CALC OU (BOTH EYES) OPHT Imaging Routine Combined forms of age-related cataract of both eyes Expected: 03/07/2023, Expires: 08/29/2023 [facility] Work Phone: Comment on above: Expected: 03/07/2023 , Expires: 08/29/2023 Start: 08-11-2022 ADVANCE DIRECTIVE DISCUSSION ADVANCE DIRECTIVE DISCUSSION [facility] Start: 07-09-2022 COVID-19 VACCINE (4 - Booster for Pfizer series) COVID-19 VACCINE (4 - Booster for Pfizer series) [facility] Start: 05-03-2022 COVID-19 VACCINE (4 - Booster for Pfizer series) COVID-19 VACCINE (4 - Booster for Pfizer series) [facility] Start: 04-11-2022 Influenza vaccination C [facility] Start: 08-11-2021 ADVANCE DIRECTIVE DISCUSSION ADVANCE DIRECTIVE DISCUSSION [facility] Start: 03-01-2021 COVID-19 VACCINE (3 - Booster for Pfizer series) COVID-19 VACCINE (3 - Booster for Pfizer series) [facility] Start: 06-20-2019 DIABETES SCREEN DIABETES SCREEN [facility] Start: 06-14-2017 Adult depression screening assessment DEPRESSION SCREENING [facility] Start: 05-30-2013 PNEUMOCOCCAL: 65+ (2 - PCV) PNEUMOCOCCAL: 65+ (2 - PCV) [facility] Start: 2011 BONE DENSITY BONE DENSITY [facility] Start: 01-22-1996 SHINGRIX VACCINE (1 of 2) SHINGRIX VACCINE (1 of 2) [facility] Start: 1991 COLOGUARD (FIT-DNA) COLOGUARD (FIT-D NA) [facility] Start: 1991 Colonoscopy COLONOSCOPY [facility] Start: 1991 COLORECTAL CANCER SCREENING COLORECTAL CANCER SCREENING [facility] Start: [address] COLONOGRAPHY [facility] Start: 1991 FECAL OCCULT BLOOD FECAL OCCULT BLOO D [facility] Start: 1991 LIPID SCREEN LIPID SCREEN [facility] Start: 1991 SIGMOIDOSCOPY SIGMOIDOSCOPY [facility] Start: 1965 Urine microalbumin profile DTAP,TDAP,TD (1 - Tdap) [facility] Start: 01-22-1964 ANNUAL PCP TEAM 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 KALA DISEASE VISIT ANNUAL PCP TEAM CHRONIC DISEASE VISIT [facility] Start: 01-22-1964 BP CONTROLLED (<130/80) BP CONTROLLE D (<130/80) [facility] Start: 01-22-1964 Hepatitis B surface antibody level LDL CHOLESTEROL [facility] Start: 01-22-1964 HEPATITIS C SCREENING HEPATITIS C SC REENING [facility] Start: 1958 Adult depression screening assessment DEPRESSION SCREENING [facility] Start: 1951 COVID-19 VACCINE (#1) COVID-19 VACCI NE (#1) [facility] CORNEAL TOPOGRAPHY PENTACAM OU (BOTH EYES) CORNEAL TOPOGRAPHY PENTACAM OU (BOTH EYES) OPHT Imaging Routine Combined forms of age-related cataract of both eyes 04/24/2022 12:46 PM EDT [facility] Work Phone: [facility] Immunizations Immunization Date Immunization Notes Care Provider Desi aleman 05-30-2012 influenza virus vacc ine, unspecified formulation Mylene Wayne MD Work Phone: [facility] 05-30-2012 pneumococcal polysaccharide vaccine, 23 valent Mylene Wayne MD Work Phone: [facility] Payers Date Payer Category Payer Self-pay [id number] 2019 Private Health Insurance [id number] 2019 Private Health Insurance [employer] MEDICARE SUPPLEMENT [id number] 2019-Present [phone] [address] [place] [address] Indemnity [id number] 2019 Private Health Insurance [employer] MEDICARE SUPPLEMENT [id number] 2019-Present [phone] [address] [place] [address] Indemnity [id number] 2016 Medicare [id number] 2016 Private Health Insurance [id number] 2011 Medicare MEDICARE MEDICAR E A AND B [id number] 2011-Present [phone] [address] [address] [place] [address] Medicare [id number] 2011 Medicare MEDICARE MEDICAR E A AND B [id number] 2011-Present [phone] [address] [place] [id number] Medicare [id number] 1959 Medicare [id number] 1959 Private Health Insurance [id number] 1946 Unknown [id number] .182 1946 Unknown [id number] .1946 Unknown [id number] .182 1946 Unknown [id number] .182 1946 Unknown [id number] .182 1946 Unknown [id number] 2.840.1.387127.3.579.2 .182 1946 Unknown [id number] [id number] .647 1946 Unknown [id number] [id number] .647 1946 Unknown [id number] [id number] .593 1946 Unknown [id number] [id number] .593 1946 Unknown [id number] .593 1946 Unknown [id number] [id number] .593 1946 Unknown [id number] .593 Unknown [id number] .531 Social History Date Type Detail Facility Start: 04-28-2012 End: 07-30-2017 Tobacco smoking status NHIS Ex-smoker [facility] End: 04-28-1990 History of tobacco use Current smoker [facility] End: 04-28-1990 History of tobacco use Cigarette Smoker [facility] Start: 04-28-2012 End: 04-24-2022 Cigarettes smoked current (pack per day) - Reported 0.7 [facility] Start: 06-14-2016 End: 10-10-2022 Alcohol intake Current non-drinker of alcohol (finding) [facility] Start: 1945 Sex Assigned At Not on file C [facility] Start: 04-24-2022 Tobacco use and exposure Former smokeless tobacco user [facility] Work Phone: Start: 04-07-2022 End: 05-01-2022 Exposure to SARS-CoV-2 (event) Not sure [facility] Work Phone: Start: 1945 Sex Assigned At Female F [facility] Medical Equipment Procedure Code Equipment Code Equipment Original Text Equipment Identifier Dates Elan Bn Smpx P Radpq Fd Strl - [id number] Start: 05-27-2012 Sys Bncmnt Prep Kt Plg Brsh - [id number] Start: 05-27-2012 Comment on above: Description: CEMENT RESTRICTOR Stem Fem 50mm 12mm Elan Trthln - [id number] Start: 05-27-2012 Comment on above: Description: cemente d stem Aug Tib 10mm Trthln 3 Rt - [id number] Start: 05-27-2012 Comment on above: Description: AUGMENT Comp Fem 3 Rt Kn Total Stab - [id number] Start: 05-27-2012 Comment on above: Description: TS FEMU R Ins Tib 3 13mm K n X3 Cs Trthln - [id number] Start: 05-27-2012 Comment on above: Description: CS INSE RT Comp Pat 10mm 32mm Asym Trthln - [id number] Start: 05-27-2012 Comment on above: Description: PATELLA Baseplt Tib Trthln 3 Kn Total - [id number] Start: 05-27-2012 Comment on above: Description: UNIVERS AL BASEPLATE Lens Iol 0d +19. 5 Talat Uv Abs - [id number] Start: 05-01-2022 Comment on above: Description: -1.52 Lens Iol 0d +18 Talat Uv Abs - [id number] Start: 05-15-2022 Comment on above: Description: -0.34 Clinical Notes 01-16-2022 to 07-08-2023 Patient Sebastian Almeida V, MD - 10/10/2022 12:24 PM Lenin Murphy, OD - 10/10/2022 11:44 AM Mark Almeida V, MD - 05/02/2022 10:44 AM EDT Note Date & Type Note Facility 07-08-2023 Note Patient here for fol low up TB for SOB and chest pain. She was started on isosorbide. She is scheduled for outpatient stress test next week. She denies chest pain. SOB is improving. C/o LE edema which resolves by morning. C/o fatigue. Review of Systems Cardiovascular: Positive for leg swelling. All other systems reviewed and are negative. [facility] 07-08-2023 Note Cardiovascular Medic ine [facility] SUBJECTIVE Chief Complaint Patient presents with Fatigue Congestive Heart Failure Edema Shortness of Breath Son Hubbard is a 78 y.o. female here for hospital follow-up. HPI She started to have feeling of chest congestion around 06/21/2023 (this was similar to how she felt prior to her stent placement) and she presented to [facility]. She states she was having SOB laying down in bed that caused her to need to sleep propped up in bed along with increased leg swelling. Her NTproBNP on presentation was 1700, repeat was ~1900. She had a CXR done that showed mild vascular congestion. Her T3 was noted to be low and she was started on Cytomel. Her lasix was discontinued and she was started on Imdur. Today she states her chest congestion is improved. She c/o increased fatigue over the last couple of months. She is typically in bed by 8pm. She c/o continued leg swelling. No longer experiencing SOB laying down. She denies CP, palpitations, dizziness/LH, syncope ---- Last HPI per Dr. Doran: She is a 78-year-old woman who has known that she had mitral regurgitation for many years. She was followed up by outside cardiology. In 2019 she became very symptomatic with shortness of breath NYHA class III. In February and early March 2020 she was admitted to the [facility] with worsening shortness of breath. The initial diagnosis was possible bronchitis. Her echocardiogram showed severe mitral regurgitation, mild to moderate aortic regurgitation, moderate tricuspid regurgitation, and severe pulmonary hypertension. Her left-ventricular systolic function was hyperdynamic. She was treated with diuretic therapy. I then proceeded with further investigation in March 2020. A VIOLA showed mild to moderate mitral regurgitation, mild aortic valve regurgitation with normal ventricular systolic function. Cardiac catheterization in March 2020 showed severe two-vessel coronary disease with a 99% stenosis in the mid LAD that was treated by a Synergy drug-eluting stent, 80% stenosis in the RCA that was treated by a Synergy drug-eluting stent and a staged procedure in May 2020. She did well with those procedures. Previously I had stopped beta-ken therapy due to fatigue and low heart rate. I then resumed it at a subsequent visit and she then stopped it due to side effects. I started her on Cardizem but she did not tolerated due to side effects. Today she reports that she has been doing well. she denies chest pain, shortness of breath, palpitations, dizziness, syncope and leg edema. she has good exercise tolerance. There is no claudication. Patient Active Problem List Diagnosis Mitral valve regurgitation Coronary artery disease involving hoonah coronary artery of hoonah heart without angina pectoris Primary hypertension Nonrheumatic aortic valve insufficiency Status post insertion of drug eluting coronary artery stent Abnormal gait Acid reflux Anxiety Chronic bilateral low back pain without sciatica Depression Former smoker, stopped smoking in distant past History of lumbar laminectomy Hx of total knee replacement, right Hyperlipidemia Knee pain Lumbar disc herniation Lumbar radiculopathy Vertigo Past Medical History: Diagnosis Date Coronary artery disease Heart valve disease Hypertension Pulmonary hypertension (CMS/HCC) Family History Problem Relation Name Age of Onset Coronary artery disease Father Hypertension Father Social History Tobacco Use Smoking status: Former Types: Cigarettes Quit date: 1989 Years since quittin.9 Smokeless tobacco: Never Substance Use Topics Alcohol use: Yes Comment: occasional Allergies Allergen Reactions Serina Inhibitors Amlodipine Swelling Amoxicillin Dizziness Codeine Gabapentin STRANGE THINKING, UNABLE TO THINK CORRECTLY Meperidine Other Morphine ROS Cardiovascular: Positive for leg swelling. All other systems reviewed and are negative. OBJECTIVE Visit Vitals BP 144/80 (BP Location: Left arm, Patient Position: Sitting) Pulse 72 Ht 1.651 m (5' 5 ) Wt 82.1 kg (181 lb) SpO2 96% BMI 30.12 kg/m??? Smoking Status Former BSA 1.94 m??? Medications: Current Outpatient Medications: aspirin 81 mg EC tablet, Take 1 tablet every day by oral route., Disp: , Rfl: atorvastatin (Lipitor) 40 mg tablet, TAKE 1 TABLET BY MOUTH EVERY DAY, Disp: 90 tablet, Rfl: 3 benzonatate (Tessalon) 200 mg capsule, TAKE 1 CAPSULE BY MOUTH 3 TIMES A DAY NEEDED FOR COUGH, Disp: , Rfl: escitalopram (Lexapro) 10 mg tablet, Take 10 mg by mouth in the morning., Disp: , Rfl: hydrALAZINE (Apresoline) 25 mg tablet, Take 1 tablet (25 mg) by mouth in the morning and at bedtime., Disp: 180 tablet, Rfl: 3 isosorbide mononitrate ER (Imdur) 30 mg 24 hr tablet, TAKE 1 TABLET BY MOUTH EVERY 24 HOURS, Disp: , Rfl: liothyronine ( (more content not included)... [facility] 03-28-2023 Note [place] [facility] Subjective Son Hubbard is a 78 y.o. year old female patient being seen for Follow-up (6 MONTH FOLLOW UP ) Patient Active Problem List Diagnosis Mitral valve regurgitation Coronary artery disease involving hoonah coronary artery of hoonah heart without angina pectoris Primary hypertension Nonrheumatic aortic valve insufficiency Status post insertion of drug eluting coronary artery stent Abnormal gait Acid reflux Anxiety Chronic bilateral low back pain without sciatica Depression Former smoker, stopped smoking in distant past History of lumbar laminectomy Hx of total knee replacement, right Hyperlipidemia Knee pain Lumbar disc herniation Lumbar radiculopathy Family History Problem Relation Name Age of Onset Coronary artery disease Father Hypertension Father Social History Tobacco Use Smoking status: Former Types: Cigarettes Quit date: 1989 Years since quittin.6 Smokeless tobacco: Never Substance Use Topics Alcohol use: Yes Comment: occasional HPI She is a 78-year-old woman who has known that she had mitral regurgitation for many years. She was followed up by outside cardiology. In 2019 she became very symptomatic with shortness of breath NYHA class III. In February and early March 2020 she was admitted to the [facility] with worsening shortness of breath. The initial diagnosis was possible bronchitis. Her echocardiogram showed severe mitral regurgitation, mild to moderate aortic regurgitation, moderate tricuspid regurgitation, and severe pulmonary hypertension. Her left-ventricular systolic function was hyperdynamic. She was treated with diuretic therapy. I then proceeded with further investigation in March 2020. A VIOLA showed mild to moderate mitral regurgitation, mild aortic valve regurgitation with normal ventricular systolic function. Cardiac catheterization in March 2020 showed severe two-vessel coronary disease with a 99% stenosis in the mid LAD that was treated by a Synergy drug-eluting stent, 80% stenosis in the RCA that was treated by a Synergy drug-eluting stent and a staged procedure in May 2020. She did well with those procedures. Previously I had stopped beta-ken therapy due to fatigue and low heart rate. I then resumed it at a subsequent visit and she then stopped it due to side effects. I started her on Cardizem but she did not tolerated due to side effects. Today she reports that she has been doing well. she denies chest pain, shortness of breath, palpitations, dizziness, syncope and leg edema. she has good exercise tolerance. There is no claudication. Review of Systems All other systems reviewed and are negative. Objective Visit Vitals BP 124/80 (BP Location: Left arm, Patient Position: Sitting, BP Cuff Size: Adult) Pulse 87 Resp 11 Ht 1.651 m (5' 5 ) Wt 84.4 kg (186 lb) SpO2 97% BMI 30.95 kg/m??? Smoking Status Former BSA 1.97 m??? Physical Exam Constitutional: Appearance: She is well-developed. She is obese. She is not ill-appearing. HENT: Head: Normocephalic and atraumatic. Nose: Nose normal. Eyes: General: No scleral icterus. Pupils: Pupils are equal, round, and reactive to light. Neck: Thyroid: No thyromegaly. Vascular: No JVD. Cardiovascular: Rate and Rhythm: Normal rate and regular rhythm. Pulses: Radial pulses are 2+ on the right side and 2+ on the left side. Heart sounds: Normal heart sounds. No murmur heard. No friction rub. No gallop. Pulmonary: Effort: Pulmonary effort is normal. No respiratory distress. Breath sounds: Normal breath sounds. No wheezing or rales. Chest: Chest wall: No tenderness. Abdominal: General: Bowel sounds are normal. There is no distension. Palpations: Abdomen is soft. Tenderness: There is no abdominal tenderness. Musculoskeletal: General: No swelling. Cervical back: Neck supple. Skin: General: Skin is warm and dry. Neurological: General: No focal deficit present. Mental Status: She is alert and oriented to person, place, and time. Psychiatric: Mood and Affect: Mood normal. Behavior: Behavior is cooperative. Judgment: Judgment normal. Allergies Allergies Allergen Reactions Serina Inhibitors Amlodipine Swelling Amoxicillin Dizziness Codeine Gabapentin STRANGE THINKING, UNABLE TO THINK CORRECTLY Meperidine Other Morphine Medications Current Outpatient Medications: aspirin 81 mg EC tablet, Take 1 tablet every day by oral route., Disp: , Rfl: atorvastatin (Lipitor) 40 mg tablet, Take 1 tablet by mouth at bedtime., Disp: , Rfl: citalopram (CeleXA) 20 mg tablet, Take 1 tablet by mouth in the morning., Disp: , Rfl: cyclobenzaprine (Flexeril) 5 mg tablet, TAKE 1 TABLET BY MOUTH AT BEDTIME, Disp: 90 tablet, Rfl: 3 escitalopram (Lexapro) 10 mg tablet, Take 10 mg by mouth in the morning., Disp: , Rfl: furosemide (Lasix) 20 mg tablet, TAKE 1 (more content not included)... [facility] 10-18-2022 Note HNO ID: [id number] Author: Steph Murphy, JOAQUIM Service: ? Author Type: QUALITY MEASUREMENT SPECIALIST Type: Progress Notes Filed: 10/18/2022 10:33 AM Note Text: ASSESSMENT/PLAN: 1. History of YAG laser capsulotomy of lens, Both Eyes - ICD9: V45.61, ICD10: Z98.49 (primary diagnosis) 2. Pseudophakia of both eyes - ICD9: V43.1, ICD10: Z96.1 PEcIOL Apr and May [address] Mylene Almeida SHOOT for PLANO/-1.50 Doing well p YAG Successful Monovision Rx specs for as needed use Return to clinic if changes 3. Vitreous degeneration, bilateral - ICD9: 379.21, ICD10: H43.813 4. 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 I have seen and examined this patient. I also have reviewed and agree with the assessment and plan as stated above and agree with all of its relevant components. Steph Murphy, OD October 18, 2022 10:31 AM [facility] 10-10-2022 Note HNO ID: [id number] Author: Mylene Almeida V, MD Service: ? Author Type: Physician Type: Progress Notes Filed: 10/10/2022 12:30 PM Note Text: The documentation for this note was completed by CHRISTAL Ulloa acting as a scribe for Mylene ALMEIDA MD. 10/10/2022 12:24 PM. ASSESSMENT / PLAN: 1. Posterior capsular opacity Both eyes -YAG capsulotomy Both eyes today -Patient educated on posterior capsular opacity following cataract surgery. The risks, benefits, alternatives, personnel, and possible complications related to yttrium aluminum garnet (YAG) capsulotomy discussed with patient. Explained that risks include but are not limited to: increase in intraocular pressure, retinal tears/detachment, dislocation of the intraocular lens, and/or need for further procedures. Patient expresses understanding and elects to proceed with YAG capsulotomy of Both eyes performed by Dr. Almeida. Informed consent form signed by physician and patient. Literature regarding signs and symptoms of retinal detachment offered. -The patient was offered a surgery/procedure at a [facility] facility. The surgeon/proceduralist and patient have discussed in detail the risk of exposure to and/or potential harm posed by the COVID-19 virus with having a surgery/procedure at this time versus the risk of delaying the surgery/procedure. It is not possible to know either the risk of delaying the surgery or procedure or chance of getting an infection with perfect accuracy, but a joint decision was made between the patient and the surgeon/proceduralist to proceed at this time with the scheduled surgery/procedure as indicated on the consent form. -F/U [address] ROSE or Dr BHATTI (VATa, Manifest refraction) The documentation recorded by the scribe accurately reflects the service I personally performed and the decisions made by me. I have confirmed and edited as necessary the relevant ophthalmic history, ROS, and the exam findings as obtained by others. I have seen and examined Son Hubbard. I also have reviewed and agree with the assessment and plan as stated above and agree with all of its relevant components. Mylene ALMEIDA MD October 10, 2022 12:24 PM [facility] 10-10-2022 Note HNO ID: [id number] Author: Steph Murphy OD Service: ? Author Type: QUALITY MEASUREMENT SPECIALIST Type: Progress Notes Filed: 10/10/2022 12:30 PM Note Text: ASSESSMENT/PLAN: 1. PCO (posterior capsular opacification), bilateral - ICD9: 366.50, ICD10: H26.493 (primary diagnosis) 2. Pseudophakia of both eyes - ICD9: V43.1, ICD10: Z96.1 Four months s/p PEcIOLs Monovisioon OD dist and OS near Pt still wearing Pre-op specs + Glare and halo signs and/or symptoms YAG evaluation with Dr Mylene Almeida today Recommend current/updated spec Rx for driving > wearing Pre-op specs 3. Vitreous degeneration, bilateral - ICD9: 379.21, ICD10: H43.813 4. 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 I have seen and examined this patient. I also have reviewed and agree with the assessment and plan as stated above and agree with all of its relevant components. Steph Murphy, OD October 10, 2022 11:45 AM [facility] 10-10-2022 Instructions Mylene Almeida V, MD - 10/10/2022 12:27 PM EST YAG LASER POSTERIOR CAPSULOTOMY Cataract surgery is a commonly performed procedure to remove a clouded human lens and replace it with a clear lens implant known as an intra-ocular lens. During this surgery, after the clouded lens is removed, a thin portion of the lens called the capsule is left in place. This membrane, which is similar in consistency to a sandwich bag, is left in place in order to give additional support for the lens implant. Over time, this clear membrane may become cloudy or hazy, similar to a cataract, before it was removed. If this occurs, images may become blurred again or glare may be created in the vision. Common complaints when this happens are decreased vision, increased glare, or an increase in the amount of light needed to read. Although this condition will not harm the health of the eye if left untreated, it can prove to be a nuisance. Not all patients will develop a clouded capsule, but if this occurs, the problem can be corrected with a simple, non-invasive procedure known as a YAG laser capsulotomy. If you elect to have this procedure, dilating drops are given to open the pupil. You will be asked to sit in a machine similar to the one that is used to check you eye pressure in an eye exam. The doctor then shines a red, aiming laser beam that can be seen by our eyes. The invisible laser light would then be activated to make a small opening in the cloudy capsule to restore a clear image to the retina. While this is being performed, the doctor will instruct you where to look and when to blink. You will hear a series of clicks when the doctor is performing the laser procedure. You should not feel any discomfort. In most cases, if the health of the eye is normal, you should see an improvement in your vision within 24 hours. Immediately afterward, you will be blurry until the dilating drops wear off, so we recommend you come with a buggy driver. You will then be scheduled for a follow up in approximately one week. If you notice any of the following symptoms of retinal detachment, please call our office at : - Flashes of light - Increased number of floaters or large floaters - Curtains, veils, or spider web pattern over vision documented in this encounter [facility] 10-10-2022 History of Present illness Narrative The documentation for this note was completed by CHRISTAL Ulloa acting as a scribe for Mylene ALMEIDA MD. 10/10/2022 12:24 PM. ASSESSMENT / PLAN: 1. Posterior capsular opacity Both eyes -YAG capsulotomy Both eyes today -Patient educated on posterior capsular opacity following cataract surgery. The risks, benefits, alternatives, personnel, and possible complications related to yttrium aluminum garnet (YAG) capsulotomy discussed with patient. Explained that risks include but are not limited to: increase in intraocular pressure, retinal tears/detachment, dislocation of the intraocular lens, and/or need for further procedures. Patient expresses understanding and elects to proceed with YAG capsulotomy of Both eyes performed by Dr. Almeida. Informed consent form signed by physician and patient. Literature regarding signs and symptoms of retinal detachment offered. -The patient was offered a surgery/procedure at a [facility] facility. The surgeon/proceduralist and patient have discussed in detail the risk of exposure to and/or potential harm posed by the COVID-19 virus with having a surgery/procedure at this time versus the risk of delaying the surgery/procedure. It is not possible to know either the risk of delaying the surgery or procedure or chance of getting an infection with perfect accuracy, but a joint decision was made between the patient and the surgeon/proceduralist to proceed at this time with the scheduled surgery/procedure as indicated on the consent form. -F/U [address] ROSE or Dr BHATTI (VATa, Manifest refraction) The documentation recorded by the scribe accurately reflects the service I personally performed and the decisions made by me. I have confirmed and edited as necessary the relevant ophthalmic history, ROS, and the exam findings as obtained by others. I have seen and examined Son Hubbard. I also have reviewed and agree with the assessment and plan as stated above and agree with all of its relevant components. Mylene ALMEIDA MD October 10, 2022 12:24 PM ASSESSMENT/PLAN: 1. PCO (posterior capsular opacification), bilateral - ICD9: 366.50, ICD10: H26.493 (primary diagnosis) 2. Pseudophakia of both eyes - ICD9: V43.1, ICD10: Z96.1 Four months s/p PEcIOLs Monovisioon OD dist and OS near Pt still wearing Pre-op specs + Glare and halo signs and/or symptoms YAG evaluation with Dr Mylene Almeida today Recommend current/updated spec Rx for driving > wearing Pre-op specs 3. Vitreous degeneration, bilateral - ICD9: 379.21, ICD10: H43.813 4. 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 I have seen and examined this patient. I also have reviewed and agree with the assessment and plan as stated above and agree with all of its relevant components. Steph Murphy, JOAQUIM October 10, 2022 11:45 AM documented in this encounter [facility] 05-02-2022 Note HNO ID: [id number] Author: Mylene Almeida V, MD Service: ? Author Type: Physician Type: Progress Notes Filed: 05/02/2022 2:42 PM Note Text: The documentation for this note was completed by CHRISTAL Ulloa acting as a scribe for Mylene ALMEIDA MD. 05/02/2022 10:44 AM. 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 Written instructions detailing the following given: - Prednisolone Acetate 1% 1 drop four times a day - Ketorolac 0.5% 1 drop four times a day - Eye shield at bedtime for 1 week - Signs and symptoms of retinal detachment and infection reviewed - Follow up 05/09/[address] Wilson The documentation recorded by the scribe accurately reflects the service I personally performed and the decisions made by me. I have confirmed and edited as necessary the relevant ophthalmic history, ROS, and the exam findings as obtained by others. I have seen and examined Son Steve Stevie. I also have reviewed and agree with the assessment and plan as stated above and agree with all of its relevant components. Mylene ALMEIDA MD May 02, 2022 10:44 AM [facility] 05-02-2022 History of Present illness Narrative The documentation for this note was completed by CHRISTAL Ulloa acting as a scribe for Mylene ALMEIDA MD. 05/02/2022 10:44 AM. 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 Written instructions detailing the following given: - Prednisolone Acetate 1% 1 drop four times a day - Ketorolac 0.5% 1 drop four times a day - Eye shield at bedtime for 1 week - Signs and symptoms of retinal detachment and infection reviewed - Follow up 05/09/[address] Wilson The documentation recorded by the scribe accurately reflects the service I personally performed and the decisions made by me. I have confirmed and edited as necessary the relevant ophthalmic history, ROS, and the exam findings as obtained by others. I have seen and examined Son Steve Stevie. I also have reviewed and agree with the assessment and plan as stated above and agree with all of its relevant components. Mylene ALMEIDA MD May 02, 2022 10:44 AM documented in this encounter [facility] 05-01-2022 Note HNO ID: [id number] Author: Naila Cedillo, JOAQUIM Service: ? Author Type: QUALITY MEASUREMENT SPECIALIST Type: Progress Notes Filed: 05/02/2022 7:54 AM Note Text: ASSESSMENT/PLAN: 1. Superficial punctate keratitis of left eye - ICD9: 370.21, ICD10: H16.142 Patient had cataract surgery today and around 1:30 she had 12/10 pain in the left eye Tetracaine in office relieves pain Discussed with patient do not touch the eye Take it easy tonight and take Tylenol/Motrin to help with pain Refresh PM per Dr. Almeida Unable to safely manipulate patients eye for a bandage contact lens She jumps and pulls even with slight touch of lids See Dr. Almeida tomorrow instead of Dr. Wilson Return to clinic: Dr. Almeida 9:30 tomorrow, check cornea before applanating the patient Naila Cedillo, OD I have confirmed and edited as necessary the relevant HPI, ophthalmic history, ROS, and the neuro exam findings as obtained by others. I have seen and examined this patient. I have discussed the case and the management of this patient's care with the Resident/Fellow, if applicable. I also have reviewed and agree with the assessment and plan as stated above and agree with all of its relevant components. Naila Cedillo, OD May 01, 2022 6:05 PM [facility] 05-01-2022 History of Present illness Narrative ASSESSMENT/PLAN: 1. Superficial punctate keratitis of left eye - ICD9: 370.21, ICD10: H16.142 Patient had cataract surgery today and around 1:30 she had 12/10 pain in the left eye Tetracaine in office relieves pain Discussed with patient do not touch the eye Take it easy tonight and take Tylenol/Motrin to help with pain Refresh PM per Dr. Almeida Unable to safely manipulate patients eye for a bandage contact lens She jumps and pulls even with slight touch of lids See Dr. Almeida tomorrow instead of Dr. Wilson Return to clinic: Dr. Almeida 9:30 tomorrow, check cornea before applanating the patient Naila Isaac Cedillo, OD I have confirmed and edited as necessary the relevant HPI, ophthalmic history, ROS, and the neuro exam findings as obtained by others. I have seen and examined this patient. I have discussed the case and the management of this patient's care with the Resident/Fellow, if applicable. I also have reviewed and agree with the assessment and plan as stated above and agree with all of its relevant components. Naila Isaac Cedillo, OD May 01, 2022 6:05 PM documented in this encounter [facility] 04-24-2022 Note HNO ID: [id number] Author: CHRISTAL Calles Service: ? Author Type: Publishing Editor Type: Progress Notes Filed: 04/24/2022 12:47 PM Note Text: Confirmed Aim: -1.50 OS, [place] OD CHRISTAL Calles April 24, 2022 12:46 PM [facility] 04-24-2022 History of Present illness Narrative Confirmed Aim: -1.50 OS, [place] OD CHRISTAL Calles April 24, 2022 12:46 PM documented in this encounter [facility] 03-07-2022 Note HNO ID: [id number] Author: Mylene Almeida V, MD Service: ? Author Type: Physician Type: Progress Notes Filed: 03/07/2022 1:34 PM Note Text: The documentation for this note was completed by CHRISTAL Chen acting as a scribe for Mylene ALMEIDA MD. 03/07/2022 1:25 PM. ASSESSMENT / PLAN: 1. Combined cataract, both eyes - Offered cataract extraction by phacoemulsification and intraocular lens implant with Dr. Almeida, both eyes, left eye first - Aim: -1.50 Left eye, plano Right eye [WTR cyl Left eye] - Flomax/alpha-ken? No - Toric candidate: No - PanOptix candidate: No - Anesthesia: Topical with MAC - Contact lens use No - History of LASIK/PRK/RK No - Discussed initiate twice daily eyelid scrubs pending U/S biometry and surgery - Comanage with Dr Wilson; [facility] POD #1 Cataract Presurgical Documentation Cataract: Both eyes (OU) Current Visual Acuity Right Eye Distance CC 20/20 Left Eye Distance CC 20/25 Best Corrected Vision Right Eye 20/20 Best Corrected Vision Left Eye 20/25-3 Glare Testing: Right Eye High 20/70 Left Eye High 20/70 Visual Function: Son Hubbard states that the decline in vision from the cataract impedes her abilities as listed in the HPI, as well as other activities of daily living. Son Hubbard has confirmed that she is no longer able to function adequately on a day-to-day basis because of her current visual condition. Further, it is my medical opinion that the cataract is the primary cause, or at least a significantly contributory cause of her visual dysfunction. With uncomplicated cataract surgery and lens implantation, it is my expectation that her visual function and quality of life will improve, significantly. The risks, benefits, alternatives, personnel and complications of cataract surgery with lens implantation were discussed with Son Hubbard in detail. she appeared to understand and asked that I proceed with plans for surgery. Patient acknowledges possible need for glasses after procedure. Informed consent form signed by physician and patient. Literature regarding cataract and cataract extraction by phacoemulsification offered. Return for preadmission testing, biometry AND intraocular lens calculations prior to surgery. The patient was offered a surgery/procedure at a [facility] facility. The surgeon/proceduralist and patient have discussed in detail the risk of exposure to and/or potential harm posed by the COVID-19 virus with having a surgery/procedure at this time versus the risk of delaying the surgery/procedure. It is not possible to know either the risk of delaying the surgery or procedure or chance of getting an infection with perfect accuracy, but a joint decision was made between the patient and the surgeon/proceduralist to proceed at this time with the scheduled surgery/procedure as indicated on the consent form. The documentation recorded by the scribe accurately reflects the service I personally performed and the decisions made by me. I have confirmed and edited as necessary the relevant ophthalmic history, ROS, and the exam findings as obtained by others. I have seen and examined Son Hubbard. I also have reviewed and agree with the assessment and plan as stated above and agree with all of its relevant components. Mylene ALMEIDA MD March 07, 2022 1:25 PM [facility] 03-07-2022 Note HNO ID: [id number] Author: Marian Arroyo, JOAQUIM Service: ? Author Type: QUALITY MEASUREMENT SPECIALIST Type: Progress Notes Filed: 03/07/2022 1:34 PM Note Text: (H25.813) Combined forms of age-related cataract of both eyes (primary encounter diagnosis) (H43.811) Posterior vitreous detachment of right eye Patient referred by Cat Wilson O.D. Cataracts Both eyes, evaluation today with Mylene Almeida M.D. Posterior vitreous detachment Right eye, retina flat and intact Both eyes rpe changes Left eye, taking AREDS2 Marian Arroyo, JOAQUIM March 07, 2022 12:59 PM [facility] 03-07-2022 History of Present illness Narrative The documentation for this note was completed by Samantha Alberts, COA acting as a scribe for Mylene ALMEIDA MD. 03/07/2022 1:25 PM. ASSESSMENT / PLAN: 1. Combined cataract, both eyes - Offered cataract extraction by phacoemulsification and intraocular lens implant with Dr. Almeida, both eyes, left eye first - Aim: -1.50 Left eye, plano Right eye [WTR cyl Left eye] - Flomax/alpha-ken? No - Toric candidate: No - PanOptix candidate: No - Anesthesia: Topical with MAC - Contact lens use No - History of LASIK/PRK/RK No - Discussed initiate twice daily eyelid scrubs pending U/S biometry and surgery - [facility] Cataract Presurgical Documentation Cataract: Both eyes (OU) Current Visual Acuity Right Eye Distance CC 20/20 Left Eye Distance CC 20/25 Best Corrected Vision Right Eye 20/20 Best Corrected Vision Left Eye 20/25-3 Glare Testing: Right Eye High 20/70 Left Eye High 20/70 Visual Function: Son Hubbard states that the decline in vision from the cataract impedes her abilities as listed in the HPI, as well as other activities of daily living. Son Hubbard has confirmed that she is no longer able to function adequately on a day-to-day basis because of her current visual condition. Further, it is my medical opinion that the cataract is the primary cause, or at least a significantly contributory cause of her visual dysfunction. With uncomplicated cataract surgery and lens implantation, it is my expectation that her visual function and quality of life will improve, significantly. The risks, benefits, alternatives, personnel and complications of cataract surgery with lens implantation were discussed with Son Hubbard in detail. she appeared to understand and asked that I proceed with plans for surgery. Patient acknowledges possible need for glasses after procedure. Informed consent form signed by physician and patient. Literature regarding cataract and cataract extraction by phacoemulsification offered. Return for preadmission testing, biometry & intraocular lens calculations prior to surgery. The patient was offered a surgery/procedure at a [facility] facility. The surgeon/proceduralist and patient have discussed in detail the risk of exposure to and/or potential harm posed by the COVID-19 virus with having a surgery/procedure at this time versus the risk of delaying the surgery/procedure. It is not possible to know either the risk of delaying the surgery or procedure or chance of getting an infection with perfect accuracy, but a joint decision was made between the patient and the surgeon/proceduralist to proceed at this time with the scheduled surgery/procedure as indicated on the consent form. The documentation recorded by the scribe accurately reflects the service I personally performed and the decisions made by me. I have confirmed and edited as necessary the relevant ophthalmic history, ROS, and the exam findings as obtained by others. I have seen and examined Son Hubbard. I also have reviewed and agree with the assessment and plan as stated above and agree with all of its relevant components. Mylene ALMEIDA MD March 07, 2022 1:25 PM (H25.813) Combined forms of age-related cataract of both eyes (primary encounter diagnosis) (H43.811) Posterior vitreous detachment of right eye Patient referred by Cat Wilson O.D. Cataracts Both eyes, evaluation today with Mylene Almeida M.D. Posterior vitreous detachment Right eye, retina flat and intact Both eyes rpe changes Left eye, taking AREDS2 Marian Arroyo OD March 07, 2022 12:59 PM documented in this encounter [facility] 01-16-2022 Miscellaneous Notes Patient has been rescheduled with Dr. Almeida for March 07 in [place] Patient called Appointment Center and was scheduled with Dr. Taylor. We are waiting to confirm from Dr. Wilson office if it is ok for patient to stay scheduled with or to call and reschedule with Dr. Almeida LVM for patient to schedule at Cataract Evaluation with Dr. Almeida in [place] per faxed referral from Dr. Wilson. First attempt 01/11/22. Referral scanned into chart. 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 cataract of both eyes- Primary Other and combined forms of senile cataract Posterior vitreous detachment of right eye Vitreous degeneration [facility] Diagnosis Combined forms of age-related cataract of both eyes- Primary Other and combined forms of senile cataract [facility] Diagnosis Combined forms of age-related cataract of both eyes Other and combined forms of senile cataract Combined forms of age-related cataract of both eyes Other and combined forms of senile cataract Combined forms of age-related cataract of both eyes Other and combined forms of senile cataract [facility] Diagnosis Superficial punctate keratitis of left eye- Primary Pseudophakia Lens replaced by other means Combined forms of age-related cataract of both eyes Other and combined forms of senile cataract [facility] Diagnosis S/P cataract extraction and insertion of intraocular lens, left- Primary Combined forms of age-related cataract of both eyes Other and combined forms of senile cataract [facility] noteNo assessment information [facility] Work Phone: Evaluation note* Diagnosis PCO (posterior capsular opacification), bilateral- Primary After-cataract, unspecified Pseudophakia of both eyes Lens replaced by other means Vitreous degeneration, 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 Other retinal disorders documented in this encounter [facility] Summary Purpose Family History No Family History Records FoundNo Family History Records FoundNo Family History Records FoundNo Family History Records FoundNo Family History Records FoundNo Family History Records Found Advance Directives No Advanced Directives Records Found Advance Directive Response Recorded Date/ Time Advance Directives No April 2:20pm Chief Complaint and Reason for Visit Chief Complaint Screening Additional Source Comments INFORMATION SOURCE (unrecogn ized section and content) DATE CREATED AUTHOR 03/05/2019 [facility] DATE CREATED AUTHOR AUTHOR'S ORGANIZ ATION 03/13/2021 [facility] DATE CREATED AUTHOR AUTHOR'S ORGANIZ ATION 10/19/2022 [facility] DATE CREATED AUTHOR AUTHOR'S ORGANIZ ATION 11/18/2022 [facility] DATE CREATED AUTHOR AUTHOR'S ORGANIZ ATION 06/18/2023 [facility] DATE CREATED AUTHOR AUTHOR'S ORGANIZ ATION 07/30/2023 [facility] Source Comments (unrecognize d section and content) In the event this informatio n is protected by the Federal Confidentiality of Alcohol and Drug Abuse Patient Records regulations: The Federal rules restrict any use of the information to criminally investigate or prosecute any alcohol or drug abuse patient.[facility] event this information is protected by the Federal Confidentiality of Alcohol and Drug Abuse Patient Records regulations: The Federal rules restrict any use of the information to criminally investigate or prosecute any alcohol or drug abuse patient.[facility] event this information is protected by the Federal Confidentiality of Alcohol and Drug Abuse Patient Records regulations: The Federal rules restrict any use of the information to criminally investigate or prosecute any alcohol or drug abuse patient.[facility] event this information is protected by the Federal Confidentiality of Alcohol and Drug Abuse Patient Records regulations: The Federal rules restrict any use of the information to criminally investigate or prosecute any alcohol or drug abuse patient.[facility] event this information is protected by the Federal Confidentiality of Alcohol and Drug Abuse Patient Records regulations: The Federal rules restrict any use of the information to criminally investigate or prosecute any alcohol or drug abuse patient.[facility] the event this information is protected by the Federal Confidentiality of Alcohol and Drug Abuse Patient Records regulations: The Federal rules restrict any use of the information to criminally investigate or prosecute any alcohol or drug abuse patient.[facility] event this information is protected by the Federal Confidentiality of Alcohol and Drug Abuse Patient Records regulations: The Federal rules restrict any use of the information to criminally investigate or prosecute any alcohol or drug abuse patient.[facility] Reason for Visit (unrecogniz ed section and content) Reason Comments Appointment Reason Comments Cataract Evaluation Reason Comments Pre-Op Exam Reason Comments Post-op (Ophthalmology) Left Eye Eye gabriella n 07/20 patient had cataract surgery today Reason Comments Superficial punctate keratitis OS Reason Comments Posterior Capsule Opacification Evaluati on Left eye Care Teams (unrecognized sec tion and content) Team Status: Active Member Role Status Dates Pat Newell MD Primary Care Provider Active Team Status: Inactive Member Role Status Dates Pat Newell MD Primary Care Provider, Referring Pr ovider Active Referral Self Attending Provider Active Retirement Consultant Relationship Specialty Start Date End Date Pat Newell MD PCP - General Family Practice 03/30/12 Retirement Consultant Relationship Specialty Start Date End Date Pat Newell MD PCP - General Family Practice 03/30/12 Retirement Consultant Relationship Specialty Start Date End Date Pat Newell MD PCP - General Family Practice 03/30/12 Retirement Consultant Relationship Specialty Start Date End Date Pat Newell MD PCP - General Family Practice 03/30/12 Retirement Consultant Relationship Specialty Start Date End Date Pat Newell MD PCP - General Family Medicine 03/30/12 Retirement Consultant Relationship Specialty Start Date End Date Pat Newell MD PCP - General Family Medicine 03/30/12 Retirement Consultant Relationship Specialty Start Date End Date Pat Newell MD PCP - General Family Medicine 03/30/12 Goals (unrecognized section and content) Goals may be documented in a n alternate sectionGoals may be documented in an alternate section FOR RECORDS PERTAINING TO PATIENTS WHO ARE OR HAVE BEEN ENROLLED IN A CHEMICAL DEPENDENCY/SUBSTANCEABUSE PROGRAM, SOME INFORMATION MAY BE OMITTED. This clinical summary was aggregated from multiple sources. Caution should be exercised in using it in the provision of clinical care. This summary normalizes information from multiple sources, and as a consequence, information in this document may materially change the coding, format and clinical context of patient data. In addition, data may be omitted in some cases. CLINICAL DECISIONS SHOULD BE BASED ON THE PRIMARY CLINICAL RECORDS. [employer] provides no warranty or guarantee of the accuracy or completeness of information in this document.
[2023-08-07 10:26] LABS: SARS-CoV-2 Ag NEGATIVE (NEGATIVE)
[2023-08-08 08:29] LABS: SARS-CoV-2 NAA NOT DETECTED (NOT DETECTE)
== END 2023-08-07 08:54 | disposition home or self-care (01) ==
LOC: LAB 08:53
PROVIDERS: PCP Family Medicine; Visit Provider Family Medicine
DX: R05.9 Cough, unspecified (principal)
CPT/HCPCS: 87635; 87811

== ENCOUNTER 2023-08-09 14:25 | Emergency (ER) | payer MEDICARE, OTHER, SELFPAY ==
[2023-08-09 14:30] VITALS: BP 133/82; PULSE 98; RESP 18; TEMP 36.9; O2SAT 95; BMI 30.1
--- OUTSIDE RECORDS SUMMARY | 2023-08-09 14:41 | XMS_ITS | CCD ---
Author Name Unknown Address [address] [facility] [address] [place] [address] Organization [facility] Care Team Providers Care Chief Counsel Name Role Phone ASHLEY, FAN H. Referring [...] Provider Pat Newell MD Primary Care Provider [phone] MD Pat Newell Primary Care Provider [phone] MD Pat Newell Referring Provider Self, Referral Attending Provider Unavailable Pat Newell [...] Care Unavailable MADELYN DICKSON Consulting Unavailable MD aPt Newell Primary Care Provider [phone] MD Pat Newell Referring Provider Self, Referral Attending Provider Unavailable Self, Referral Attending Unavailable Pat Newell Primary Care Unavailable Pat Newell Referring Unavailable Self, Referral Admitting Unavailable MOUKACLINTON ENGEL Referring Unavailable DINORAH MONTES Attending Unavailable MOUKARBCLINTON SABA Attending Unavailable Allergies Allergy Classification Reported Allergen(s) Allergy Type Date of Onset Reaction(s) Facility Angiotensin Converting Enzyme (SERINA) Inhibitors (1 source) Angiotensin Converting Enzyme (Serina) Inhibitors Drug Allergy 04-04-2020 [facility] Repository Opioid Agonists (2 sources) Codeine; Translations: [morphine] Drug Allergy 04-04-2020 [facility] Repository (5 sources) Angiotensin-conv erting enzyme inhibitor agent; Translations: [SERINA INHIBITORS] Drug Allergy 04-28-2012 Rash [facility] (9 sources) Codeine; Translations: [CODEINE] Drug Allergy 04-28-2012 Vomiting [facility] (8 sources) HYDROmorphone; Translations: [HYDROMORPHONE (BULK)] Drug Allergy 05-12-2012 Vomiting [facility] (6 sources) Angiotensin-conv erting enzyme inhibitor agent Drug Allergy 04-28-2012 [facility] (6 sources) amLODIPine; Translations: [AMLODIPINE] Drug Allergy 04-24-2022 Swelling [facility] (3 sources) Acetaminophen; Translations: [acetaminophen] Drug Allergy 07-28-2017 [facility] (3 sources) HYDROcodone; Translations: [hydrocodone] Drug Allergy 07-28-2017 [facility] (4 sources) Meperidine; Translations: [meperidine] Drug Allergy 07-28-2017 [facility] (5 sources) Morphine; Translations: [morphine] Drug Allergy 07-28-2017 [facility] (1 source) Angiotensin Converting Enzyme (Serina) Inhibitors Drug allergy (disorder) 04-22-[address] [facility] Repository (1 source) Codeine Drug Allergy 04-29-[address] [facility] Repository (1 source) Meperidine Drug Allergy 04-29-[address] [facility] Repository (1 source) Angiotensin Converting Enzyme (Serina) Inhibitors Drug allergy (disorder) 07-28-2017 [facility] Repository (1 source) Amoxicillin; Translations: [AMOXICILLIN] Drug Allergy 03-13-2023 [facility] Repository (1 source) gabapentin; Translations: [GABAPENTIN] Drug Allergy 05-25-2019 [facility] Repository Medications Current Medications Medication Drug Class(es) [...] 1:00am docusate sodium 50 mg / sennosides, fpc 8.6 mg oral tablet (2 sources) Start: [...] Comment on above: Take 1 capsule by [facility] once daily. Naproxen (2 sources) Nonsteroidal Anti-inflammatory [...] Coronary arteriosclerosis; Translations: [Atherosclerotic heart disease of [place] coronary artery without angina pectoris] Onset: 04-24-2022 04-24-2022 Chronic Coronary atherosclerosis and other heart disease (2 sources) Presence of coronary angioplasty implant and graft; Translations: [Presence of coronary angioplasty implant and graft] Onset: 07-01-2022 Episodic Deficiency and other anemia (1 source) Anemia, [...] Classification Problem Date Documented Da te Episodic/Chronic Other non-traumatic joint disorders (7 sources) Pain [...] Test Name Value Interpretation Reference Range Facility HPon 08-06-2023 H&P reviewed. The patient was examined and there are no changes to the H&P. [facility] NURSNOTEon 08-06-2023 NURSNOTE Patient to be seen i n clinic by Dr. Doran or nurse practitioner in 1 month to discuss VIOLA results and medical plan. Message left with [facility] to call patient with appoint date and time. Patient provided the number ([phone]) to call [facility] if she does not receive an appointment call by 08/08/2023. [facility] NURSNOTE RN educated pt on d/ c instructions. RN encouraged pt to voice any questions or concerns. Pt verbalizes no questions or concerns at this time. Pt was wheeled off of unit with all of belongings. [facility] NURSNOTE Bedside swallow stud y completed and passed. [facility] Telephoneon 07-28-2023 Telephone [id number] Brandi Hubbard cca 1945 Date Provider Department Center 07/28/[address]23 [address] [facility] V[facility] LAB [facility] HeartVAS Family History Problem Relation Age of Onset Coronary artery disease Father Hypertension Father Family Status - Relation Status Age at Father [facility] 38on 07-08-2023 38 *Resume lasix. Take 20mg daily x1 week then go back to every other day. *Have stress test done. *Watch your fluid intake. Try to limit to 2 liters a day. *Eat a low sodium diet. [facility] HPon 07-08-2023 HP Patient here for fol low up TBH for SOB and chest pain. She was started on isosorbide. She is scheduled for outpatient stress test next week. She denies chest pain. SOB is improving. C/o LE edema which resolves by morning. C/o fatigue. Review of Systems Cardiovascular: Positive for leg swelling. All other systems reviewed and are negative. [facility] Office Visiton 07-08-2023 Follow-up visit [id number] Brandi Hubbard cca 1945 Provider Department Center 07/08/2023 DINORAH BETHEA [facility] Family History Problem Relation Age of Onset Coronary artery disease Father Hypertension Father Family Status - Relation Status Age at Father Level of Service:35673 MS OFFICE/OUTPATIENT ESTABLISHED MOD MDM 30-39 MIN Reason for Visit and Comments: Fatigue [46] Congestive Heart Failure [127] Edema [[id number]] Shortness of Breath [803190] Normal [facility] MM screening mammo BI w/CADo n 06-11-2023 MM screening mammo BI w/CAD [facility] Main [place] [address] [place] [id number] Mammography Report Signed Patient: Son Hubbard MR#: [id number] : 1945 Acct:[id number] Age/Sex: 78 / F ADM Date: 06/11/23 Loc: [facility] Room: Type: [facility] Attending Dr: Referral Self Copies to: Pat [...] Charlie Green M.D.06/11/2023 12:04 PM Dictation Location: [facility] Transcribed By: HERVE 06/11/23 1204 Dictated By: Charlie Green II, MD 06/11/23 1201 Signed By: 06/11/23 1204 Normal [facility] Office Visiton 03-28-2023 Follow-up visit [id number] Brandi Hubbard moris Wilson 1945 F Date Provider Department Center 03/28/2023 FRAN CLINTON [facility] Family History Problem Relation Age of Onset Coronary artery disease Father Hypertension Father Family Status - Relation Status Age at Father Level of Service:99033 MS OFFICE/OUTPATIENT ESTABLISHED LOW MDM 20-29 MIN Reason for Visit and Comments: Follow-up [702707] - 6 MONTH FOLLOW UP Normal [facility] INSULINon 11-13-2022 Insulin 16.2 uIU/mL Normal 2.6-24.9 [facility] Comment on above: Performed By: #### I NSULIN ####[facility] [id number] [address]Dr. Isi Britton CBC AUTO DIFFon 11-12-2022 BASO # 0.0 103/ul Normal 0.0-0.1 [facility] Comment on above: Performed By: #### C BC #### [facility] [address] [address] [address] Isi Britton Basophils/100 WBC (Bld) 0.6 % Normal 0.2-2.0 [facility] Comment on above: Performed By: #### C BC #### [facility] [address] [address] [address] Isi Britton EO # 0.1 103/ul Normal 0.0-0.7 [facility] Comment on above: Performed By: #### C BC #### [facility] [address] [address] [address] Isi Britton Eosinophils/100 WBC (Bld) 1.3 % Normal 0.9-7.0 [facility] Comment on above: Performed By: #### C BC #### [facility] [address] [address] [address] sIi Britton Erythrocyte distribution width (RBC) [Ratio] 13.1 % Normal 11.0-15.0 [facility] Comment on above: Performed By: #### C BC #### [facility] [address] [place] [address] Dr. Isi Britton Hematocrit (Bld) [Volume fraction] 40.1 % Normal 36.0-48.0 [facility] Comment on above: Performed By: #### C BC #### [facility] [address] [place] [address] Dr. Isi Britton Hemoglobin (Bld) [Mass/Vol] 13.5 g/dL Normal 12.0-16.0 [facility] Comment on above: Performed By: #### C BC #### [facility] [address] [place] [address] Dr. Isi Britton IG # 0.01 10e3/ul Normal 0.00-0.03 [facility] Comment on above: Performed By: #### C BC #### [facility] [address] [place] [address] Dr. Isi Britton IG % 0.2 % Normal 0.0-0.5 [facility] Comment on above: Performed By: #### C BC #### [facility] [address] [place] [address] Dr. Isi Britton LYMPH # 1.6 103/ul Normal 1.2-3.8 [facility] Comment on above: Performed By: #### C BC #### [facility] [address] [place] [address] Dr. Isi Britton Lymphocytes/100 WBC (Bld) 24.9 % Normal 20.5-60.0 [facility] Comment on above: Performed By: #### C BC #### [facility] [address] [place] [address] Dr. Isi Britton MANUAL DIFF REQ NO Normal [facility] Comment on above: Performed By: #### C BC #### [facility] [address] [place] [address] Dr. Isi Britton MCH (RBC) [Entitic mass] 31.9 pg Normal 26.7-34.0 [facility] Comment on above: Performed By: #### C BC #### [facility] [address] [place] [address] Dr. Isi Britton MCHC (RBC) [Mass/Vol] 33.7 g/dL Normal 29.9-35.[address] [facility] Comment on above: Performed By: #### C BC #### [facility] [address] [place] [address] Dr. Isi Britton MCV (RBC) [Entitic vol] 94.8 fL Normal 81.0-99.[address] [facility] Comment on above: Performed By: #### C BC #### [facility] [address] [place] [address] Dr. Isi Britton MONO # 0.6 103/ul Normal 0.3-0.[address] [facility] Comment on above: Performed By: #### C BC #### [facility] [address] [place] [address] Dr. Isi Britton Monocytes/100 WBC (Bld) 10.1 % Normal 1.7-12.[address] [facility] Comment on above: Performed By: #### C BC #### [facility] [address] [place] [address] Dr. Isi Britton NEUT # 3.9 103/ul Normal 1.4-6.[address] [facility] Comment on above: Performed By: #### C BC #### [facility] [address] [place] [address] Dr. Isi Britton Neutrophils/100 WBC (Bld) 62.9 % Normal 43.0-75.[address] [facility] Comment on above: Performed By: #### C BC #### [facility] [address] [place] [address] Dr. Isi Britton Platelet mean volume (Bld) [Entitic vol] 10.5 fL Normal 9.5-13.[address] [facility] Comment on above: Performed By: #### C BC #### [facility] [address] [place] [address] Dr. Isi Britton PLT 220 103/ul Normal 150-[address] [facility] Comment on above: Performed By: #### C BC #### [facility] [address] [place] [address] Dr. Isi Britton RBC 4.23 106/ul Normal 4.20-5.40 [facility] Comment on above: Performed By: #### C BC #### [facility] [address] [address] [address] Isi Britton WBC 6.2 103/ul Normal 4.0-11.0 [facility] Comment on above: Performed By: #### C BC #### [facility] [address] [address] [address] Isi Britton FREE T3on 11-12-2022 FREE T3 2.21 pg/mlL Normal 2.18-3.98 [facility] Comment on above: Performed By: #### L IPID, CMP, T7, FT3, TSH #### [facility] [address] [address] [address] Isi Britton FREE T4on 11-12-2022 Free T4 [Mass/Vol] 1.04 ng/dL Normal 0.76-1.46 [facility] Comment on above: Performed By: #### I RONI, FT4 ####[facility] [id number] [address]Dr. Isi Britton FREE THYROXINE INDEX T7on FTI 3.38 Normal 1.30-4.50 [facility] Comment on above: Performed By: #### L IPID, CMP, T7, FT3, TSH #### [facility] [address] [address] [address] Isi Britton T3U 36.0 % Normal 30.0-39.0 [facility] Comment on above: Performed By: #### L IPID, CMP, T7, FT3, TSH #### [facility] [address] [address] [address] Isi Britton T4 [Mass/Vol] 9.40 ug/dL Normal 4.80-13.90 [facility] Comment on above: Performed By: #### L IPID, CMP, T7, FT3, TSH #### [facility] [address] [address] [address] Isi Britton GLYCOHEMOGLOBIN A1Con 2022 ADA RECOMMENDATION SEE BELOW Normal [facility] Comment on above: Result Comment: ADA RECOMMENDED LIMIT 4.0 - 6.0 ADA THERAPEUTIC TARGET < 7.0 ACTION SUGGESTED > 7.0 Performed By: #### A 1C #### [facility] [address] [place] [address] Dr. Isi Britton Glucose [Mass/Vol] 111 mg/dL Normal [facility] Comment on above: Performed By: #### A 1C #### [facility] [address] [address] [address] Isi Britton HbA1c (Bld) [Mass fraction] 5.5 % Normal 4.5-6.2 [facility] Comment on above: Performed By: #### A 1C #### [facility] [address] [place] [address] Dr. Isi Britton IRONon 11-12-2022 Iron [Mass/Vol] 71.0 ug/dL Normal 50.0-170.0 [facility] Comment on above: Performed By: #### I RONI, FT4 #### [facility] [address] [place] [address] Dr. Isi Britton LIPID PROFILEon 11-12-2022 CHOL-HDL RATIO NORM SEE BELOW Normal [facility] Comment on above: Result Comment: 3.3 - 4.4 LOW RISK 4.4 - 7.1 AVERAGE RISK 7.1 - 11.0 MODERATE RISK >11.0 HIGH RISK Performed By: #### L IPID, CMP, T7, FT3, TSH #### [facility] [address] [address] [address] Isi Britton Cholesterol [Mass/Vol] 139 mg/dL Normal <=[address] [facility] Comment on above: Performed By: #### L IPID, CMP, T7, FT3, TSH #### [facility] [address] [address] [address] Isi Britton Cholesterol in HDL [Mass/Vol] 70 mg/dL Critically high 40-60 [facility] Comment on above: Performed By: #### L IPID, CMP, T7, FT3, TSH #### [facility] [address] [address] [address] Isi Britton Cholesterol in LDL [Mass/Vol] 49.4 mg/dL Normal [facility] Comment on above: Performed By: #### L IPID, CMP, T7, FT3, TSH #### [facility] [address] [address] [address] Isi Britton Cholesterol.total/C holesterol in HDL [Mass ratio] 2.0 {ratio} Normal [facility] Comment on above: Performed By: #### L IPID, CMP, T7, FT3, TSH #### [facility] [address] [address] [address] Isi Britton HDL NORMAL > or = 60 mg/dl - LO W CARDIOVASCULAR RISK <40 mg/dl - HIGH CARDIOVASCULAR RISK Normal [facility] Comment on above: Performed By: #### L IPID, CMP, T7, FT3, TSH #### [facility] [address] [address] [address] Isi Britton LDL CALC NORMAL SEE BELOW Normal [facility] Comment on above: Result Comment: <100 mg/dl OPTIMAL 100 - 129 mg/dl NEAR OR ABOVE OPTIMAL 130 - 159 mg/dl BORDERLINE HIGH 160 - 189 mg/dl HIGH >190 mg/dl VERY HIGH Performed By: #### L IPID, CMP, T7, FT3, TSH #### [facility] [address] [address] [address] Isi Britton Triglyceride [Mass/Vol] 98 mg/dL Normal <=[address] [facility] Comment on above: Performed By: #### L IPID, CMP, T7, FT3, TSH #### [facility] [address] [address] [address] Isi Britton VLDL CALC 19.6 mg/dL Normal [facility] Comment on above: Performed By: #### L IPID, CMP, T7, FT3, TSH #### [facility] [address] [address] [address] Isi Britton PROF 14(COMP METB)on 023 Albumin [Mass/Vol] 3.9 g/dL Normal 3.4-5.0 [facility] Comment on above: Performed By: #### L IPID, CMP, T7, FT3, TSH #### [facility] [address] [place] [address] Dr. Isi Britton Albumin/Globulin [Mass ratio] 1.2 {ratio} Normal [facility] Comment on above: Performed By: #### L IPID, CMP, T7, FT3, TSH #### [facility] [address] [place] [address] Dr. Isi Britton ALP [Catalytic activity/Vol] 99 U/L Normal 46-[address] [facility] Comment on above: Performed By: #### L IPID, CMP, T7, FT3, TSH #### [facility] [address] [place] [address] Dr. Isi Britton ALT [Catalytic activity/Vol] 26 U/L Normal 14-59 [facility] Comment on above: Performed By: #### L IPID, CMP, T7, FT3, TSH #### [facility] [address] [place] [address] Dr. Isi Britton Anion gap [Moles/Vol] 13.1 mmol/L Normal [facility] Comment on above: Performed By: #### L IPID, CMP, T7, FT3, TSH #### [facility] [address] [place] [address] Dr. Isi Britton AST [Catalytic activity/Vol] 20 U/L Normal 15-37 [facility] Comment on above: Performed By: #### L IPID, CMP, T7, FT3, TSH #### [facility] [address] [place] [address] Dr. Isi Britton Bilirubin [Mass/Vol] 0.9 mg/dL Normal 0.2-1.[address] [facility] Comment on above: Performed By: #### L IPID, CMP, T7, FT3, TSH #### [facility] [address] [place] [address] Dr. Isi Britton Calcium [Mass/Vol] 9.4 mg/dL Normal 8.5-10.1 [facility] Comment on above: Performed By: #### L IPID, CMP, T7, FT3, TSH #### [facility] [address] [place] [address] Dr. Isi Britton Chloride [Moles/Vol] 104 mmol/L Normal 98-107 [facility] Comment on above: Performed By: #### L IPID, CMP, T7, FT3, TSH #### [facility] [address] [place] [address] Dr. Isi Britton CO2 [Moles/Vol] 29.2 mmol/L Normal 21.0-32.0 [facility] Comment on above: Performed By: #### L IPID, CMP, T7, FT3, TSH #### [facility] [address] [place] [address] Dr. Isi Britton Creatinine [Mass/Vol] 1.36 mg/dL Critically high 0.55-1.02 [facility] Comment on above: Performed By: #### L IPID, CMP, T7, FT3, TSH #### [facility] [address] [place] [address] Dr. Isi Britton EGFR-AF NICARAGUAN 46 mL/min/1.73m2 Critically low >=60 [facility] Comment on above: Performed By: #### L IPID, CMP, T7, FT3, TSH #### [facility] [address] [place] [address] Dr. Isi Britton EGFR-NON AF NICARAGUAN 38 mL/min/1.73m2 Critically low >=60 [facility] Comment on above: Performed By: #### L IPID, CMP, T7, FT3, TSH #### [facility] [address] [place] [address] Dr. Isi Britton Globulin (S) [Mass/Vol] 3.3 g/dL Normal [facility] Comment on above: Performed By: #### L IPID, CMP, T7, FT3, TSH #### [facility] [address] [place] [address] Dr. Isi Britton Glucose [Mass/Vol] 107 mg/dL Critically high 74-106 [facility] Comment on above: Performed By: #### L IPID, CMP, T7, FT3, TSH #### [facility] [address] [place] [address] Dr. Isi Britton Potassium [Moles/Vol] 4.3 mmol/L Normal 3.5-5.1 [facility] Comment on above: Performed By: #### L IPID, CMP, T7, FT3, TSH #### [facility] [address] [place] [address] Dr. Isi Britton Protein [Mass/Vol] 7.2 g/dL Normal 6.4-8.2 [facility] Comment on above: Performed By: #### L IPID, CMP, T7, FT3, TSH #### [facility] [address] [place] [address] Dr. Isi Britton Sodium [Moles/Vol] 142 mmol/L Normal 136-145 [facility] Comment on above: Performed By: #### L IPID, CMP, T7, FT3, TSH #### [facility] [address] [place] [address] Dr. Isi Britton Urea nitrogen [Mass/Vol] 24.0 mg/dL Critically high 7.0-18.0 [facility] Comment on above: Performed By: #### L IPID, CMP, T7, FT3, TSH #### [facility] [address] [place] [address] Dr. Isi Britton Urea nitrogen/Creatinine [Mass ratio] 17.6 mg/mg Normal [facility] Comment on above: Performed By: #### L IPID, CMP, T7, FT3, TSH #### [facility] [address] [place] [address] Dr. Isi Britton TSHon 11-12-2022 TSH 1.802 uIU/mL Normal 0.358-3.740 [facility] Comment on above: Performed By: #### L IPID, CMP, T7, FT3, TSH #### [facility] [address] [place] [address] Dr. Isi Britton [facility] 09-11 SARS-CoV-2 (COVID-19) RNA ERICK+probe Ql (Unsp spec) Not detected Normal NOT DETECTED [facility] Comment on above: Result Comment: This test is not yet approved or cleared by the [place] FDA. When there are no FDA-approved or cleared tests available, and other criteria are met, FDA can make tests available under an emergency access mechanism called an Emergency Use Authorization (EUA). The EUA for this test is supported by the [place] of Health and Human Service's (HHS's) declaration [...] consistent with SARS-CoV-2. Performed By: #### [facility] ####[facility] [id number] [place], [place] [address]Qr. Isi Tobi ECHOCARDIO M/2D COMPLETEon 1 09-09-2021 ECHOCARDIO M/2D COMPLETE Patient: SON HUBBARD Exam Date: 07/10/2022 : 1945 Gender:F Ordering : DR CLINTON DORAN M.D. Admission #: [id number] Family : DR PAT NEWELL . Order #: [id number] CLICK HERE TO VIEW EXAM ECHOCARDIOGRAM REPORT [...] Rebeka Johnson M.D. on 07/10/2022 at 15:37 [facility] ANES POSTPROC EVALon 022 ANES POSTPROC EVAL HNO ID: [id number] Author: Abner Cox II, DO Service: Anesthesiology Author Type: Anesthesiologist Type: Anesthesia Postprocedure Evaluation Filed: 05/15/2022 11:10 AM Note Text: POST ANESTHESIA EVALUATION NOTE : 1945 Procedure Summary Date: 05/15/22 Room / Location: [address] Anesthesia Start: 928 Anesthesia Stop: 949 [...] May 15, 2022 TIME: 11:10 AM CSN: [id number] Normal [facility] ANES PRE-OPon 05-15-2022 ANES PRE-OP HNO ID: [id number] Author: Abner Cox II, DO Service: Anesthesiology Author Type: Anesthesiologist Type: Anesthesia Preprocedure Evaluation Filed: 05/15/2022 8:52 AM Note Text: ANESTHESIOLOGY DAY OF SURGERY NOTE : 1945 Procedure Information Date/Time: 05/15/22 0930 Procedures: PHACOEMULSIFICATION CATARACT IMPLANT INTRAOCULAR LENS W/O ENDOSCOPIC CYCLOPHOTOCOAGULATION (Right: Eye) OPHTHALMIC BIOMETRY BY PARTIAL COHERENCE INTERFEROMETRY W/INTRAOCULAR LENS POWER CALCULATION (Right: Eye) Location: [address] Surgeons: Mylene Almeida V, MD Estimated [...] and consent discussed: yes. Patient / Responsible Libertarian agrees to proceed: yes Patient / Surrogate [...] May 15, 2022 TIME: 8:51 AM CSN: [id number] Normal [facility] OPERATIVE NOon 05-15-2022 OPERATIVE NO HNO ID: [id number] Author: yMlene Almeida V, MD Service: Ophthalmology Author Type: Physician Type: Operative Report Filed: 05/15/2022 9:46 AM Note Text: OPERATIVE REPORT DATE OF SERVICE: May 15, 2022 PRIMARY SURGEON: Mylene Almeida M.D. STRONG NITRIC OPERATOR: None Procedure(s) (LRB): PHACOEMULSIFICATION CATARACT IMPLANT INTRAOCULAR [...] corneal incision was created temporally with a Manatee blade then a 2.4 mm keratome. The anterior chamber was reformed with Viscoat, after which the anterior capsule was opened centrally. Using the Utrata forceps a continuous curvilinear capsulorrhexis of approximately 5.5 mm round was created. Gentle hydrodissection was accomplished using preservative-free lidocaine on a 27-gauge cannula. Using the Shravan phacoemulsification unit with the [place] Emergency [employer] curved tip, the anterior chamber was entered [...] Implant Name Type Inv. Item Serial No. Molecular Biology Professor Lot No. LRB No. Used Action Model No. LENS IOL 0D +18 TALAT UV ABS - [id number] Intraocular Lens LENS IOL 0D +18 TALAT UV ABS [id number] [employer] Right 1 Implanted [id number] [...] 9:44 AM - [facility] Dr Wilson[facility] Mylene ALMEIDA MD Normal [facility] ANES POSTPROC EVALon 022 ANES POSTPROC EVAL HNO ID: [id number] Author: Cristian Parker MD Service: Anesthesiology Author Type: Anesthesiologist Type: Anesthesia Postprocedure Evaluation Filed: 05/01/2022 11:15 AM Note Text: POST ANESTHESIA EVALUATION NOTE : 1945 Procedure Summary Date: 05/01/22 Room / Location: [address] Anesthesia Start: 1044 Anesthesia Stop: 1104 [...] May 01, 2022 TIME: 11:14 AM CSN: [id number] Normal [facility] ANES PRE-OPon 05-01-2022 ANES PRE-OP HNO ID: [id number] Author: Cristian Parker MD Service: Anesthesiology Author Type: Anesthesiologist Type: Anesthesia Preprocedure Evaluation Filed: 05/01/2022 10:04 AM Note Text: ANESTHESIOLOGY DAY OF SURGERY NOTE : 1945 Procedure Information Date/Time: 05/01/22 1030 Procedures: PHACOEMULSIFICATION CATARACT IMPLANT INTRAOCULAR LENS W/O ENDOSCOPIC CYCLOPHOTOCOAGULATION (Left: Eye) OPHTHALMIC BIOMETRY BY PARTIAL COHERENCE INTERFEROMETRY W/INTRAOCULAR LENS POWER CALCULATION (Left: Eye) Location: [address] Surgeons: Mylene Almeida V, MD Estimated [...] and consent discussed: yes. Patient / Responsible Libertarian agrees to proceed: yes Patient / Surrogate agrees to blood products: blood products not planned Significant changes in the patient condition since the History and Physical, not otherwise documented in primary service progress note: no. Potential Anesthesia issues that may suggest increased risk of complications or contraindication to planned procedure: none. Vitals Value Taken Time BP 132/70 05/01/22 0947 Pulse 75 05/01/22 0947 Resp 16 05/01/22946 Temp 36.6 ?C (97.8 [...] May 01, 2022 TIME: 10:03 AM CSN: [id number] [facility] NURSING PROGon 05-01-2022 NURSING PROG HNO ID: [id number] Author: Deepika Stephen RN Service: ? Author [...] Deepika Stephen RN In Department: AMBULATORY SURGERY [facility] OPERATIVE NOon 05-01-2022 OPERATIVE NO HNO ID: [id number] Author: Mylene Almeida V, MD Service: Ophthalmology Author Type: Physician Type: Operative Report Filed: 05/01/2022 11:01 AM Note Text: OPERATIVE REPORT DATE OF SERVICE: May 01, 2022 PRIMARY SURGEON: Mylene Almeida M.D. STRONG NITRIC OPERATOR: None Procedure(s) (LRB): PHACOEMULSIFICATION CATARACT IMPLANT INTRAOCULAR [...] corneal incision was created temporally with a Manatee blade then a 2.4 mm keratome. The [...] Implant Name Type Inv. Item Serial No. Molecular Biology Professor Lot No. LRB No. Used Action Model No. LENS IOL 0D +19.5 TALAT UV ABS - [id number] Intraocular Lens LENS IOL 0D +19.5 TALAT UV ABS [id number] [employer] Left 1 Implanted [id number] [...] 10:59 AM - Comanage with Dr Wilson; [facility] POD #1 Mylene ALMEIDA MD [facility] HISTORY PHYSICALon HISTORY PHYSICAL HNO ID: [id number] Author: Chantal Can APRN.TOPOGRAPHICAL SURVEYOR Service: ? Author Type: Nurse Practitioner Type: [...] fevers. Neuro: No history of TIA's, stroke, CORK SLABS SAWYER tumor, impaired sensorium, hemiplegia, paraplegia or quadraplegia. No neurological symptoms or problems. Respiratory: No history of current cough or dyspnea, or pneumonia in the past 6 weeks. No history of respiratory/pulmonary symptoms or problems. Cardiovascular: Negative for Recent SC, Angina, Arrhythmia, Chest Pain, PVD, Valvular Heart Disease, DVT/PE +HTN +HLD +CAD 03/2020 AND 06/2020- [facility]: Negative for Nausea, Vomiting, Abdominal pain, Hepatitis, Liver disease, Inflammatory bowel disease +GERD : No history of dysuria, frequency or incontinence,, stones or chronic kidney disease POLYSOMNOGRAPHER: Negative for abnormal vaginal bleeding, abnormal vaginal [...] S1 AN (more content not included)... Normal [facility] Covid-19 PCR (CVDTBH)on 03-12 SARS-CoV-2 (COVID-19) RNA ERICK+probe Ql (Unsp spec) Not detected Normal NOT DETECTED [facility] Comment on above: Result Comment: This test is not yet approved or cleared by the [place] FDA. When there are no FDA-approved or cleared tests available, and other criteria are met, FDA can make tests available under an emergency access mechanism called an Emergency Use Authorization (EUA). The EUA for this test is supported by the [place] of Health and Human Service's (HHS's) declaration [...] consistent with SARS-CoV-2. Performed By: #### C [facility] #### [facility] [address] [address] [address] Isi Birmingham 01-11-2022 CNPN Telephone (OPHTLN) SON HUBBARD ([id number]) 1945 F Date Time Provider Department 01/11/22 MYLENE ALMEIDA During your visit today, we recorded the following information about you: Hernan Vences 01/11/2022 11:37 AM Signed LVM for patient to schedule at Cataract Evaluation with Dr. Almeida in [place] per faxed referral from Dr. Wilson. First [...] with Dr. Almeida for March 07 in [place] Allergies As of Date: 01/11/2022 Noted Allergy [...] Status:Closed by HERNAN VENCES on 01/16/22 Normal [facility] C REACTIVE PROTEINon 021 CRP [Mass/Vol] 5.1 mg/L Normal 0.0-7.0 The [facility]bl[facility] Comment on above: Performed By: #### 6 1405 #### [address] [facility] CERVICAL SPINE 2 OR 3 VWS [facility] Department of Radiology [address] [place] [id number] ===== Patient Name: SON HUBBARD : 1945 Sex: F Age: Race: White Pt. Location: [facility] Patient Status: D Ordered Date: 03/12/2021 4:00:00 PM Completed Date: 03/12/2021 04:25 PM Requesting Provider: REZA HARVEY Attending Provider: REZA HARVEY Report Copy To: Signs & Symptoms: M54.2 Cervicalgia I10 History: [place] Comments: Exam: CERVICAL SPINE 2 OR 3 VWS ===== CERVICAL SPINE 2 OR 3 [facility] 03/12/2021 4:25 PM CLINICAL INDICATIONS: M54.2 Cervicalgia [...] curvature. Electronically signed: Rosendo Salvador. Transcribed by: [email or web address], User Resident: Electronically Signed by: ROSENDO SALVADOR @ 03/13/2021 08:58 AM Normal [facility] LUMBAR SPINE 2 OR 3 [facility] LUMBAR SPINE 2 OR 3 [facility] Department of Radiology [address] [place] [phone] ===== Patient Name: SON HUBBARD : 1945 Sex: F Age: Race: White Pt. Location: [facility] Patient Status: D Ordered Date: 03/12/2021 4:00:00 PM Completed Date: 03/12/2021 04:25 PM Requesting Provider: REZA HARVEY Attending Provider: REZA HARVEY Report Copy To: Signs & Symptoms: M54.5 Low back pain I10 History: [place] Comments: Exam: LUMBAR SPINE 2 OR 3 [facility] ===== LUMBAR SPINE 2 OR 3 [facility] 03/12/2021 4:25 PM CLINICAL INDICATIONS: M54.5 [...] levels. Electronically signed: Rosendo Salvador. Transcribed by: [email or web address], User Resident: Electronically Signed by: ROSENDO SALVADOR @ 03/13/2021 10:49 AM Normal [facility] S-I JOINTS [facility] 03-12 S-I JOINTS MIN 4 [facility] Department of Radiology [address] [place] [phone] ===== Patient Name: SON HUBBARD : 1945 Sex: F Age: Race: White Pt. Location: [facility] Patient Status: D Ordered Date: 03/12/2021 4:00:00 PM Completed Date: 03/12/2021 04:25 PM Requesting Provider: REZA HARVEY Attending Provider: REZA HARVEY Report Copy To: Signs & Symptoms: M54.5 Low back pain I10 History: [place] Comments: Exam: S-I JOINTS MIN 4 VWS ===== S-I JOINTS MIN 4 VWS 03/12/2021 4:25 PM CLINICAL INDICATIONS: M54.5 [...] report. Electronically signed: Brisa Jackson. Transcribed by: [email or web address], User Resident: HARRISON HUNTER Electronically Signed by: BRISA JACKSON @ 03/13/2021 10:46 AM I personally read this/these film(s) with this resident Normal [facility] SEDIMENTATION RATEon 021 SED RATE 37 mm/hr High 0-20 [facility] Comment on above: Performed By: #### 5 [id number] #### [facility] [address] [place] [address], [place] Cardiovascular Lab Reporton 05-12-2020 Cardiovascular Lab Report [facility] Patient Name: Son Hubbard [facility] MR #: [id number] Physician: Clinton Koch of Cornelio Doran Medicine Service Date: 05/11/2020 Division of Birthdate: 1945 Cardiology Room #: Adult Cardiovascular Services [facility] [address] [facility]. [place] [address] Cardiovascular Laboratory Report INDICATION: The patient is a 75-year-old woman, who recently was evaluated in Cardiology Clinic because of a class 3 heart failure symptoms. She was evaluated by initially an echocardiography, then a transesophageal echocardiogram that showed amzm-lt-ktbgaase mitral regurgitation and mild aortic valve regurgitation. [...] signed informed consent. She was brought to lab rep in a fasting state. Modified Dom's test was favorable on the left. Access in the left radial artery was obtained using micropuncture technique. A 6-Mozambican x 11 cm Hydrophilic sheath was advanced. [...] coronary artery. This was exchanged to a 6-Mozambican AR2 guiding catheter followed by a 6-Mozambican AL1 guiding catheter, which was able to engage the right coronary artery. Initial angiography was performed. A Prowater wire was advanced into the distal RCA. An Emerge 3.0 x 15 mm balloon was used to perform balloon dilatation at 8 atmospheres in the proximal RCA. Angiography revealed suboptimal results, this was treated using a Synergy 3.0 x 20 mm drug-eluting stent deployed at 12 atmospheres and post dilated using NC Quantum [place] 3.0 x 15 mm noncompliant balloon inflated [...] P/Clinton Doran M.D. Date Trans: 05/12/2020 06:46 Kavon DN_[id number] cc: Pat Newell M.D. [address] [phone] Normal [facility] BNP (B-TYPE NATRIURETIC PEPT EFE)on 04-05-2020 Natriuretic peptide B (Bld) [Mass/Vol] 26 pg/mL Normal 0-100 [facility] Comment on above: Order Comment: No: D o not add to previous draw Result Comment: Give n the appropriate clinical setting a BNP result of >100 pg/mL indicates congestive heart failure. Performed By: #### 8 5123 #### [facility] [address] CBC COMPLETE BLOOD COUNTon 0 04-05-2020 Erythrocyte distribution width (RBC) [Ratio] 13.1 % Normal 11.5-15.0 [facility] Comment on above: Order Comment: No: D o not add to previous draw Performed By: #### 5 0608 #### [facility] [address] Hematocrit (Bld) [Volume fraction] 42.1 % Normal 36.0-45.0 [facility] Comment on above: Order Comment: No: D o not add to previous draw Performed By: #### 5 0608 #### [facility] [address] [facility] [place] [address], [place] Hemoglobin (Bld) [Mass/Vol] 14.3 g/dL Normal 12.0-15.0 [facility] Comment on above: Order Comment: No: D o not add to previous draw Performed By: #### 5 0608 #### [facility] [address] [facility] [place] [address], [place] MCH (RBC) [Entitic mass] 31.0 pg Normal 27.0-33.0 [facility] Comment on above: Order Comment: No: D o not add to previous draw Performed By: #### 5 0608 #### [facility] [address] [place] [id number], [place] MCHC (RBC) [Mass/Vol] 34.0 g/dL Normal 32.0-35.0 [facility] Comment on above: Order Comment: No: D o not add to previous draw Performed By: #### 5 0608 #### [facility] [address] [place] [address], [place] MCV (RBC) [Entitic vol] 91.3 fL Normal 82.0-98.0 [facility] Comment on above: Order Comment: No: D o not add to previous draw Performed By: #### 5 0608 #### [facility] [address] [place] [address], [place] Nucleated RBC/100 WBC (Bld) [Ratio] 0 % Normal 0-0 [facility] Comment on above: Order Comment: No: D o not add to previous draw Performed By: #### 5 0608 #### [facility] [address] [place] [address], [place] PLAT CNT 249 10*3/uL Normal 150-400 [facility] Comment on above: Order Comment: No: D o not add to previous draw Performed By: #### 5 0608 #### [facility] [address] [facility] [place] [address], [place] RBC (Bld) [#/Vol] 4.61 10*6/uL Normal 3.80-5.00 [facility] Comment on above: Order Comment: No: D o not add to previous draw Performed By: #### 5 0608 #### [facility] [address] [facility] [place] [address], [place] WBC (Bld) [#/Vol] 6.32 10*3/uL Normal 4.00-10.60 [facility] Comment on above: Order Comment: No: D o not add to previous draw Performed By: #### 5 0608 #### [facility] [address] [place] [id number], [place] Erythrocyte distribution width (RBC) [Ratio] 13.0 % Normal 11.5-15.0 [facility] Comment on above: Order Comment: No: D o not add to previous draw Performed By: #### 5 0608 #### [facility] [address] [place] [address], [place] Hematocrit (Bld) [Volume fraction] 40.2 % Normal 36.0-45.0 [facility] Comment on above: Order Comment: No: D o not add to previous draw Performed By: #### 5 0608 #### [facility] [address] [place] [address], [place] Hemoglobin (Bld) [Mass/Vol] 13.7 g/dL Normal 12.0-15.0 [facility] Comment on above: Order Comment: No: D o not add to previous draw Performed By: #### 5 0608 #### [facility] [address] [place] [address], [place] MCH (RBC) [Entitic mass] 31.4 pg Normal 27.0-33.0 [facility] Comment on above: Order Comment: No: D o not add to previous draw Performed By: #### 5 0608 #### [facility] [address] [place] [address], [place] MCHC (RBC) [Mass/Vol] 34.1 g/dL Normal 32.0-35.0 [facility] Comment on above: Order Comment: No: D o not add to previous draw Performed By: #### 5 0608 #### [facility] [address] [place] [address], [place] MCV (RBC) [Entitic vol] 92.0 fL Normal 82.0-98.0 [facility] Comment on above: Order Comment: No: D o not add to previous draw Performed By: #### 5 0608 #### [facility] [address] [place] [address], [place] Nucleated RBC/100 WBC (Bld) [Ratio] 0 % Normal 0-0 [facility] Comment on above: Order Comment: No: D o not add to previous draw Performed By: #### 5 0608 #### [facility] [address] [facility] [place] [address], [place] PLAT CNT 209 10*3/uL Normal 150-400 [facility] Comment on above: Order Comment: No: D o not add to previous draw Performed By: #### 5 0608 #### [facility] [address] [facility]. [address] RBC (Bld) [#/Vol] 4.37 10*6/uL Normal 3.80-5.00 [facility] Comment on above: Order Comment: No: D o not add to previous draw Performed By: #### 5 0608 #### [facility] [address] [facility] [place] [address], [place] WBC (Bld) [#/Vol] 5.97 10*3/uL Normal 4.00-10.60 [facility] Comment on above: Order Comment: No: D o not add to previous draw Performed By: #### 5 0608 #### [facility] [address] TROPONIN-Ion 04-05-2020 Troponin I.cardiac [Mass/Vol] 0.07 ng/mL High 0.00-0.04 [facility] Comment on above: Order Comment: This order is a replacement of the rejected order with accession number [id number]. Result Comment: REFE RENCE RANGES: 0.00 - 0.04 ng/ml NORMAL 0.05 - 0.50 ng/ml INDETERMINATE > 0.50 ng/ml CONSISTENT WITH AN M.I. Performed By: #### 3 5200 #### [facility] [address] Cardiovascular Lab Reporton 04-04-2020 Cardiovascular Lab Report [facility] Patient Name: [facility] S MR #: [id number] Department of Physician: Clinton Ankit Jerri Doran M.D. Division of Service Date: 04/04/2020 Cardiology Birthdate: 1945 Adult Cardiovascular Room #: [facility] [address] [place] [address] Cardiovascular Laboratory Report INDICATION: Son Hubbard is a 75-year-old woman, who was recently evaluated in Cardiology Clinic after a recent admission to the [facility] with acute onset shortness of breath and finding on echocardiogram of possible severe mitral regurgitation. She continued to be symptomatic and was referred for further investigation of her recent onset symptoms by a transesophageal echocardiography that showed evidence of psgh-ca-qfjhftwg mitral regurgitation. She was then referred for [...] informed consent. She was brought to the lab rep in a fasting state. The right neck area was prepped and draped in the usual fashion. Using micropuncture technique and ultrasound guidance, the right internal jugular vein was accessed. A 6-Mozambican x 11 cm sheath was placed. A 6-Mozambican Mendez catheter was used for right catheterization with measurement of pressures and calculation of cardiac output using the estimated Elizabeth method. Mendez catheter was removed. Modified Dom's test was favorable on the right. Access in the right radial artery was obtained using micropuncture technique. A 6-Mozambican x 11 cm Hydrophilic sheath was advanced. Verapamil was given through the sheath and heparin was administered intravenously. Bilateral selective coronary angiography was then performed using 5-Mozambican JR5 and 5-Mozambican multipurpose catheters for engagement of the right coronary artery and a 5-Mozambican JL3.5 diagnostic catheter for engagement of the left coronary artery. Catheters were removed. Additional heparin was given as needed and therapeutic ACT confirmed during the rest of the procedure. A 6-Mozambican XB3.0 guiding catheter was advanced and used to engage the left main coronary ostium. A Prowater wire was advanced into the distal LAD. Balloon dilatation in the mid LAD was performed using Emerge 3.0 x 12 mm balloon inflated at 6 atmospheres. Angiography revealed suboptimal results. This was treated using a Synergy 3.0 x 16 mm drug-eluting stent deployed at 11 atmospheres and post dilated using NC Quantum [place] 3.25 x 12 mm noncompliant balloon inflated [...] 2- (more content not included)... Normal [facility] *SARS-CoV-2 COVID-19on 03-31 SARS-CoV-2 (COVID-19) RNA ERICK+probe Ql (Unsp spec) Not detected Normal Not Detected [facility] Comment on above: Order Comment: The A ptima SARS-CoV-2 assay is a nucleic acid amplification test intended for the qualitative detection of RNA from SARS-CoV-2 isolated and purified from nasopharyngeal (PORTER HEAD),oropharyngeal (OP), nasal swab, sputum, and bronchoalveolar lavage (BAL) specimens from patients with signs and symptoms of infection who are suspected of COVID-19. Results are for the identification of SARS-CoV-2 RNA. The SARS-CoV-2 RNA is generally detectable during the acute phase of infection. The Aptima SARS-CoV-2 Assay on the [facility] and [facility] Fusion system is intended for use by laboratory personnel specifically instructed and trained in the operation of the [place] [employer] [place] Fusion system. The Aptima SARS-CoV-2 assay is [...] and epidemiological information. Performed By: #### 3 [id number] #### [facility] [address] [facility]. [address] CONSULTATIONon 03-02-2019 [place] [address] CONSULTATION PATIENT NAME: SON HUBBARD : 1945 MED REC NO: [id number] ROOM: R254 ACCOUNT NO: [id number] ADMIT DATE: 02/24/2019 PROVIDER: Francis Holguin MD CONSULT DATE: 03/02/2019 ATTENDING: Dr. [...] and S2 are normal. No murmurs appreciated. CORK SLABS SAWYER EXAMINATION: Pupils are equal and reactive. Eye [...] the patient. FRANCIS HOLGUIN MD [id number] Doc#: [id number] CC: Normal [facility] Homocysteineon 03-02-2019 Homocysteine 14.5 umol/L Normal 0.0-15.0 [facility] Comment on above: Performed By: #### P T #### [facility] [address] [place] [address] TSH w/out Reflexon 9 TSH Qn 3.890 uIU/mL Critically high 0.440-3.86 [facility] Comment on above: Performed By: #### P T #### [facility] [address] [place] [address] Vitamin B12 and Folateon Cobalamin (Vitamin B12) [Mass/Vol] 537 pg/mL Normal 232-1245 [facility] Comment on above: Performed By: #### P T #### [facility] [address] [place] [address] Folate 11.6 ng/mL Normal 7.3-26.1 [facility] Comment on above: Result Comment: As o f 16, the methodology has changed. Results from this methodology should not be compared with results from previous methodology. Performed By: #### P T #### [facility] [address] [place] [address] Urinalysis, reflex to cultur erik 02-28-2019 Bilirubin Ql (U) Negative Normal Negative [facility] Comment on above: Performed By: #### B MP #### [facility] [address] [place] [address] Clarity (U) Clear Normal Clear [facility] Comment on above: Performed By: #### B MP #### [facility] [address] [place] [address] Color (U) Yellow Normal Straw/[place] [facility] Comment on above: Performed By: #### B MP #### [facility] [address] [place] [address] Glucose Ql (U) Negative Normal Negative [facility] Comment on above: Performed By: #### B MP #### [facility] [address] [place] [address] Hemoglobin Ql (U) Negative Normal Negative [facility] Comment on above: Performed By: #### B MP #### [facility] [address] [place] [address] Ketones Ql (U) Negative Normal Negative [facility] Comment on above: Performed By: #### B MP #### [facility] [address] [place] [address] Leukocyte esterase Test strip Ql (U) Negative Normal Negative [facility] Comment on above: Performed By: #### B MP #### [facility] [address] [place] [address] Nitrite Ql (U) Negative Normal Negative [facility] Comment on above: Performed By: #### B MP #### [facility] [address] [place] [address] pH (U) 7.0 [pH] Normal 5.0-9.0 [facility] Comment on above: Performed By: #### B MP #### [facility] [address] [place] [address] Protein Ql (U) Negative Normal Negative [facility] Comment on above: Performed By: #### B MP #### [facility] [address] [place] [address] Specific gravity (U) [Rel density] 1.007 Normal 1.005-1.03 [facility] Comment on above: Performed By: #### B MP #### [facility] [address] [place] [address] Urine Reflexed to Culture Not Indicated Normal [facility] Comment on above: Performed By: #### B MP #### [facility] [address] [place] [address] Urobilinogen Qn (U) 0.2 {Tyrel'U}/dL Normal < 2.0 [facility] Comment on above: Performed By: #### B MP #### [facility] [address] [place] [address] CBC With Platelet No Differe ntialon 02-25-2019 Erythrocyte distribution width (RBC) [Ratio] 13.5 % Normal 11.5-14.5 [facility] Comment on above: Performed By: #### B MP #### [facility] [address] [place] [address] Hematocrit (Bld) [Volume fraction] 33.3 % Low 37.0-47.0 [facility] Comment on above: Performed By: #### B MP #### [facility] [address] [place] [address] Hemoglobin (Bld) [Mass/Vol] 11.7 g/dL Low 12.0-16.0 [facility] Comment on above: Performed By: #### B MP #### [facility] [address] [place] [address] MCH (RBC) [Entitic mass] 33.0 pg Critically high 27.0-31.3 [facility] Comment on above: Performed By: #### B MP #### [facility] [address] [place] [address] MCHC (RBC) [Mass/Vol] 35.1 % Normal 33.0-37.0 [facility] Comment on above: Performed By: #### B MP #### [facility] [address] [place] [address] MCV (RBC) [Entitic vol] 94.1 fL Normal 82.0-100.0 [facility] Comment on above: Performed By: #### B MP #### [facility] [address] [place] [address] Platelets (Bld) [#/Vol] 180 10*3/uL Normal 130-400 [facility] Comment on above: Performed By: #### B MP #### [facility] [address] [place] [address] RBC (Bld) [#/Vol] 3.54 10*6/uL Low 4.20-5.40 [facility] Comment on above: Performed By: #### B MP #### [facility] [address] [place] [address] WBC (Bld) [#/Vol] 12.1 10*3/uL Critically high 4.8-10.8 [facility] Comment on above: Performed By: #### B MP #### [facility] [address] [place] [address] Basic Metabolic Panel Reflex Mgon 02-24-2019 Anion gap [Moles/Vol] 13 mmol/L Normal 9-15 [facility] Comment on above: Performed By: #### B MP #### [facility] [address] [place] [address] Calcium [Mass/Vol] 8.8 mg/dL Normal 8.5-9.9 [facility] Comment on above: Performed By: #### B MP #### [facility] [address] [place] [address] Chloride [Moles/Vol] 100 mmol/L Normal 95-107 [facility] Comment on above: Performed By: #### B MP #### [facility] [address] [place] [address] CO2 [Moles/Vol] 24 mmol/L Normal 20-31 [facility] Comment on above: Performed By: #### B MP #### [facility] [address] [place] [address] Creatinine [Mass/Vol] 0.96 mg/dL Critically high 0.50-0.90 [facility] Comment on above: Performed By: #### B MP #### [facility] [address] [place] [address] GFR/1.73 sq M predicted among blacks MDRD (S/P/Bld) [Vol rate/Area] mL/min/{1.73_m2} Normal >60 [facility] Comment on above: Result Comment: >60 mL/min/1.73m2 EGFR, calc. for ages 18 and older using the MDRD formula (not corrected for weight), is valid for stable renal function. Performed By: #### B MP #### [facility] [address] [place] [address] GFR/1.73 sq M.predicted MDRD (S/P/Bld) [Vol rate/Area] 57.0 mL/min/{1.73_m2} Low >60 [facility] Comment on above: Result Comment: >60 mL/min/1.73m2 EGFR, calc. for ages 18 and older using the MDRD formula (not corrected for weight), is valid for stable renal function. Performed By: #### B MP #### [facility] [address] [place] [address] Glucose [Mass/Vol] 146 mg/dL Critically high 70-99 [facility] Comment on above: Performed By: #### B MP #### [facility] [address] [place] [address] Potassium reflex Mg 5.4 mEq/L Critically high 3.4-4.9 [facility] Comment on above: Performed By: #### B MP #### [facility] [address] [place] [address] Sodium [Moles/Vol] 137 mmol/L Normal 135-144 [facility] Comment on above: Performed By: #### B MP #### [facility] [address] [place] [address] Urea nitrogen [Mass/Vol] 18 mg/dL Normal 8-23 [facility] Comment on above: Performed By: #### B MP #### [facility] [address] [place] [address] CBC With Platelet and Differ entialon 02-24-2019 Basophils (Bld) [#/Vol] 0.0 10*3/uL Normal 0.0-0.2 [facility] Comment on above: Performed By: #### C BCWD #### [facility] [address] [place] [address] Basophils/100 WBC (Bld) 0.1 % Normal [facility] Comment on above: Performed By: #### C BCWD #### [facility] [address] [place] [address] Eosinophils (Bld) [#/Vol] 0.0 10*3/uL Normal 0.0-0.7 [facility] Comment on above: Performed By: #### C BCWD #### [facility] [address] [place] [address] Eosinophils/100 WBC (Bld) 0.0 % Normal [facility] Comment on above: Performed By: #### C BCWD #### [facility] [address] [place] [address] Erythrocyte distribution width (RBC) [Ratio] 13.4 % Normal 11.5-14.5 [facility] Comment on above: Performed By: #### C BCWD #### [facility] [address] [place] [address] Hematocrit (Bld) [Volume fraction] 34.6 % Low 37.0-47.0 [facility] Comment on above: Performed By: #### C BCWD #### [facility] [address] [place] [address] Hemoglobin (Bld) [Mass/Vol] 12.0 g/dL Normal 12.0-16.0 [facility] Comment on above: Performed By: #### C BCWD #### [facility] [address] [place] [address] Lymphocytes (Bld) [#/Vol] 0.9 10*3/uL Low 1.0-4.8 [facility] Comment on above: Performed By: #### C BCWD #### [facility] [address] [place] [address] Lymphocytes/100 WBC (Bld) 6.5 % Normal [facility] Comment on above: Performed By: #### C BCWD #### [facility] [address] [place] [address] MCH (RBC) [Entitic mass] 32.3 pg Critically high 27.0-31.3 [facility] Comment on above: Performed By: #### C BCWD #### [facility] [address] [place] [address] MCHC (RBC) [Mass/Vol] 34.7 % Normal 33.0-37.0 [facility] Comment on above: Performed By: #### C BCWD #### [facility] [address] [place] [address] MCV (RBC) [Entitic vol] 93.2 fL Normal 82.0-100.0 [facility] Comment on above: Performed By: #### C BCWD #### [facility] [address] [place] [address] Monocytes (Bld) [#/Vol] 1.4 10*3/uL Critically high 0.2-0.8 [facility] Comment on above: Performed By: #### C BCWD #### [facility] [address] [place] [address] Monocytes/100 WBC (Bld) 10.2 % Normal [facility] Comment on above: Performed By: #### C BCWD #### [facility] [address] [place] [address] Neutrophils (Bld) [#/Vol] 11.3 10*3/uL Critically high 1.4-6.5 [facility] Comment on above: Performed By: #### C BCWD #### [facility] [address] [place] [address] Neutrophils/100 WBC (Bld) 83.2 % Normal [facility] Comment on above: Performed By: #### C BCWD #### [facility] [address] [place] [address] Platelets (Bld) [#/Vol] 208 10*3/uL Normal 130-400 [facility] Comment on above: Performed By: #### C BCWD #### [facility] [address] [place] [address] RBC (Bld) [#/Vol] 3.71 10*6/uL Low 4.20-5.40 [facility] Comment on above: Performed By: #### C BCWD #### [facility] [address] [place] [address] WBC (Bld) [#/Vol] 13.7 10*3/uL Critically high 4.8-10.8 [facility] Comment on above: Performed By: #### C BCWD #### [facility] [address] [place] [address] Culture, Urineon 02-24-2019 Culture, Urine ORDERED BY: CHRISTIE REED SOURCE: Urine Clean Catch COLLECTED: 02/24/19 17:31 ANTIBIOTICS AT ELISEO.: RECEIVED : 02/24/19 17:31 Culture, Urine FINAL 02/26/19 08:22 No growth 24 hours Normal [facility] Comment on above: Performed By: #### B MP #### [facility] [address] [place] [address] POCT Glucoseon 02-24-2019 Glucose [Mass/Vol] 133 mg/dL Critically high 60-115 M [facility] Comment on above: Performed By: #### B MP #### [facility] [address] [place] [address] POC Performed on ACCU-CHEK Normal [facility] Comment on above: Performed By: #### B MP #### [facility] [address] [place] [address] Urinalysis, reflex to cultur erik 02-24-2019 Bilirubin Ql (U) Negative Normal Negative [facility] Comment on above: Performed By: #### B MP #### [facility] [address] [place] [address] Clarity (U) Clear Normal Clear [facility] Comment on above: Performed By: #### B MP #### [facility] [address] [place] [address] Color (U) Yellow Normal Straw/[place] [facility] Comment on above: Performed By: #### B MP #### [facility] [address] [place] [address] Glucose Ql (U) Negative Normal Negative [facility] Comment on above: Performed By: #### B MP #### [facility] [address] [place] [address] Hemoglobin Ql (U) SMALL Abnormal Negative [facility] Comment on above: Performed By: #### B MP #### [facility] [address] [place] [address] Ketones Ql (U) Negative Normal Negative [facility] Comment on above: Performed By: #### B MP #### [facility] [address] [place] [address] Leukocyte esterase Test strip Ql (U) TRACE Abnormal Negative [facility] Comment on above: Performed By: #### B MP #### [facility] [address] [place] [address] Nitrite Ql (U) Negative Normal Negative [facility] Comment on above: Performed By: #### B MP #### [facility] [address] [place] [address] pH (U) 6.0 [pH] Normal 5.0-9.0 [facility] Comment on above: Performed By: #### B MP #### [facility] [address] [place] [address] Protein Ql (U) Negative Normal Negative [facility] Comment on above: Performed By: #### B MP #### [facility] [address] [place] [address] Specific gravity (U) [Rel density] 1.010 Normal 1.005-1.03 [facility] Comment on above: Performed By: #### B MP #### [facility] [address] [place] [address] Urine Reflexed to Culture YES Normal [facility] Comment on above: Performed By: #### B MP #### [facility] [address] [place] [address] Urobilinogen Qn (U) 0.2 {Tyrel'U}/dL Normal < 2.0 [facility] Comment on above: Performed By: #### B MP #### [facility] [address] [place] [address] Urine Microscopicon 02-24- 19 Bacteria LM.HPF (Urine sed) [#/Area] Negative Normal [facility] Comment on above: Performed By: #### B MP #### [facility] [address] [place] [address] RBC (U) [#/Vol] 0-2 Normal 0-5 [facility] Comment on above: Performed By: #### B MP #### [facility] [address] [place] [address] Urine Epithelial Cells Auto 3-5 Normal 0-5 [facility] Comment on above: Performed By: #### B MP #### [facility] [address] [place] [address] Urine Hyaline Casts Auto 0-1 Normal 0-5 [facility] Comment on above: Performed By: #### B MP #### [facility] [address] [place] [address] Urine WBC Auto 6-10 Abnormal 0-5 [facility] Comment on above: Performed By: #### B MP #### [facility] [address] [place] [address] XR LUMBAR SPINE (2-3 VIEWS)o n 02-24-2019 [...] Ramón Bonds MD 02/24/19 Final result Normal [facility] Basic Metabolic Panel Reflex Mgon 02-23-2019 Anion gap [Moles/Vol] 14 mmol/L Normal 9-15 [facility] Comment on above: Performed By: #### B MPX #### [facility] [address] [place] [address] Calcium [Mass/Vol] 9.1 mg/dL Normal 8.5-9.9 [facility] Comment on above: Performed By: #### B MPX #### [facility] [address] [place] [address] Chloride [Moles/Vol] 106 mmol/L Normal 95-107 [facility] Comment on above: Performed By: #### B MPX #### [facility] [address] [place] [address] CO2 [Moles/Vol] 20 mmol/L Normal 20-31 [facility] Comment on above: Performed By: #### B MPX #### [facility] [address] [place] [address] Creatinine [Mass/Vol] 0.96 mg/dL Critically high 0.50-0.90 [facility] Comment on above: Performed By: #### B MPX #### [facility] [address] [place] [address] GFR/1.73 sq M predicted among blacks MDRD (S/P/Bld) [Vol rate/Area] mL/min/{1.73_m2} Normal >60 [facility] Comment on above: Result Comment: >60 mL/min/1.73m2 EGFR, calc. for ages 18 and older using the MDRD formula (not corrected for weight), is valid for stable renal function. Performed By: #### B MPX #### [facility] [address] [place] [address] GFR/1.73 sq M.predicted MDRD (S/P/Bld) [Vol rate/Area] 57.0 mL/min/{1.73_m2} Low >60 [facility] Comment on above: Result Comment: >60 mL/min/1.73m2 EGFR, calc. for ages 18 and older using the MDRD formula (not corrected for weight), is valid for stable renal function. Performed By: #### B MPX #### [facility] [address] [place] [address] Glucose [Mass/Vol] 139 mg/dL Critically high 70-99 M [facility] Comment on above: Performed By: #### B MPX #### [facility] [address] [place] [address] Potassium reflex Mg 4.6 mEq/L Normal 3.4-4.9 [facility] Comment on above: Performed By: #### B MPX #### [facility] [address] [place] [address] Sodium [Moles/Vol] 140 mmol/L Normal 135-144 [facility] Comment on above: Performed By: #### B MPX #### [facility] [address] [place] [address] Urea nitrogen [Mass/Vol] 20 mg/dL Normal 8-23 [facility] Comment on above: Performed By: #### B MPX #### [facility] [address] [place] [address] CBC With Platelet No Differe ntialon 02-23-2019 Erythrocyte distribution width (RBC) [Ratio] 13.4 % Normal 11.5-14.5 [facility] Comment on above: Performed By: #### C BCND #### [facility] [address] [place] [address] Hematocrit (Bld) [Volume fraction] 38.8 % Normal 37.0-47.0 [facility] Comment on above: Performed By: #### C BCND #### [facility] [address] [place] [address] Hemoglobin (Bld) [Mass/Vol] 13.6 g/dL Normal 12.0-16.0 [facility] Comment on above: Performed By: #### C BCND #### [facility] [address] [place] [address] MCH (RBC) [Entitic mass] 32.2 pg Critically high 27.0-31.3 [facility] Comment on above: Performed By: #### C BCND #### [facility] [address] [place] [address] MCHC (RBC) [Mass/Vol] 35.1 % Normal 33.0-37.0 [facility] Comment on above: Performed By: #### C BCND #### [facility] [address] [place] [address] MCV (RBC) [Entitic vol] 91.6 fL Normal 82.0-100.0 [facility] Comment on above: Performed By: #### C BCND #### [facility] [address] [place] [address] Platelets (Bld) [#/Vol] 212 10*3/uL Normal 130-400 [facility] Comment on above: Performed By: #### C BCND #### [facility] [address] [facility] [place] [address] RBC (Bld) [#/Vol] 4.24 10*6/uL Normal 4.20-5.40 [facility] Comment on above: Performed By: #### C BCND #### [facility] [address] [place] [address] WBC (Bld) [#/Vol] 8.3 10*3/uL Normal 4.8-10.8 [facility] Comment on above: Performed By: #### C BCND #### [facility] [address] [place] [address] FLUORO FOR SURGICAL PROCEDUR ESon 02-23-2019 FLUORO [...] Nona Yates MD 02/23/19 Final result Normal [facility] Surgical Specimenon 02-24-20 19 Surgical Specimen [facility] [address] [place], [place] [id number] FINAL SURGICAL PATHOLOGY REPORT Patient Name: SON HUBBARD Accession No: [id number] Age Sex: 1945 Location: DIS [id number] Account No: [id number] Collected: 02/23/2019 Med Rec No: [id number] Received: 02/24/2019 Attend Phys: FAN RAMIREZ Completed: [...] 3.5 x 3.0 x 0.5 cm. Sections new accounts banking representative are submitted in three cassettes labeled A1 through A3 after a brief decalcification. JADE/TAYLOR CPT: 71513 X1 [id number] X1 CHIDI LUNA M.D. 02/26/2019 Electronically signed out by Page 1 of 1 [facility] Comment on above: Performed By: #### B MP #### [facility] [address] [place] [address] Basic Metabolic Panelon 07- Anion gap [Moles/Vol] 13 mmol/L Normal 9-15 [facility] Comment on above: Performed By: #### B MP #### [facility] [address] [place] [address] Calcium [Mass/Vol] 9.7 mg/dL Normal 8.5-9.9 [facility] Comment on above: Performed By: #### B MP #### [facility] [address] [place] [address] Chloride [Moles/Vol] 105 mmol/L Normal 95-107 [facility] Comment on above: Performed By: #### B MP #### [facility] [address] [place] [address] CO2 [Moles/Vol] 24 mmol/L Normal 20-31 [facility] Comment on above: Performed By: #### B MP #### [facility] [address] [place] [address] Creatinine [Mass/Vol] 1.00 mg/dL Critically high 0.50-0.90 [facility] Comment on above: Performed By: #### B MP #### [facility] [address] [place] [address] GFR/1.73 sq M predicted among blacks MDRD (S/P/Bld) [Vol rate/Area] mL/min/{1.73_m2} Normal >60 [facility] Comment on above: Result Comment: >60 mL/min/1.73m2 EGFR, calc. for ages 18 and older using the MDRD formula (not corrected for weight), is valid for stable renal function. Performed By: #### B MP #### [facility] [address] [place] [address] GFR/1.73 sq M.predicted MDRD (S/P/Bld) [Vol rate/Area] 54.3 mL/min/{1.73_m2} Low >60 [facility] Comment on above: Result Comment: >60 mL/min/1.73m2 EGFR, calc. for ages 18 and older using the MDRD formula (not corrected for weight), is valid for stable renal function. Performed By: #### B MP #### [facility] [address] [place] [address] Glucose [Mass/Vol] 93 mg/dL Normal 70-99 [facility] Comment on above: Performed By: #### B MP #### [facility] [address] [place] [address] Potassium [Moles/Vol] 4.1 mmol/L Normal 3.4-4.9 [facility] Comment on above: Performed By: #### B MP #### [facility] [address] [place] [address] Sodium [Moles/Vol] 142 mmol/L Normal 135-144 [facility] Comment on above: Performed By: #### B MP #### [facility] [address] [place] [address] Urea nitrogen [Mass/Vol] 20 mg/dL Normal 8-23 [facility] Comment on above: Performed By: #### B MP #### [facility] [address] [place] [address] CBC With Platelet No Differe ntialon 02-22-2019 Erythrocyte distribution width (RBC) [Ratio] 13.2 % Normal 11.5-14.5 [facility] Comment on above: Performed By: #### C BCND #### [facility] [address] [place] [address] Hematocrit (Bld) [Volume fraction] 39.9 % Normal 37.0-47.0 [facility] Comment on above: Performed By: #### C BCND #### [facility] [address] [place] [address] Hemoglobin (Bld) [Mass/Vol] 14.1 g/dL Normal 12.0-16.0 [facility] Comment on above: Performed By: #### C BCND #### [facility] [address] [place] [address] MCH (RBC) [Entitic mass] 32.5 pg Critically high 27.0-31.3 [facility] Comment on above: Performed By: #### C BCND #### [facility] [address] [place] [address] MCHC (RBC) [Mass/Vol] 35.3 % Normal 33.0-37.0 [facility] Comment on above: Performed By: #### C BCND #### [facility] [address] [place] [address] MCV (RBC) [Entitic vol] 92.2 fL Normal 82.0-100.0 [facility] Comment on above: Performed By: #### C BCND #### [facility] [address] [place] [address] Platelets (Bld) [#/Vol] 206 10*3/uL Normal 130-400 [facility] Comment on above: Performed By: #### C BCND #### [facility] [address] [place] [address] RBC (Bld) [#/Vol] 4.33 10*6/uL Normal 4.20-5.40 [facility] Comment on above: Performed By: #### C BCND #### [facility] [address] [place] [address] WBC (Bld) [#/Vol] 5.9 10*3/uL Normal 4.8-10.8 [facility] Comment on above: Performed By: #### C BCND #### [facility] [address] [place] [address] Partial Thromboplastin Timeo n 02-22-2019 aPTT Coag (Bld) [Time] 36.9 s Critically high 24.4-36.8 [facility] Comment on above: Result Comment: Effe ctive 02/18/2019: Please note methodology and/or reference ranges have changed. Performed By: #### P TT #### [facility] [address] [place] [address] Prothrombin Timeon 9 INR Coag (PPP) [Relative time] 0.9 {INR} Normal [facility] Comment on above: Result Comment: Warf esther Therapy INR Therapeutic: 2.0-3.0 With Mechanical Valve: >2.5 Low-intensity Therapeutic Range: 1.5-2.0 Mod-intensity Therapeutic Range: 2.0-3.0 High-intensity Therapeutic Range: 2.5-3.5 HIgh-intensity Therapeutic Range: 3.0-4.0 Common Critical/Alarm Value: 5.0 Common Upper Limit Reported: 10.0 Effective 02/18/2019: Please note methodology and/or reference ranges have changed. Performed By: #### P T #### [facility] [address] [place] [address] PT Coag (PPP) [Time] 12.6 s Normal 12.3-14.9 [facility] Comment on above: Result Comment: Effe ctive 02/18/19 Please note methodology and/or reference ranges have changed. Performed By: #### P T #### [facility] [address] [place] [address] Type and Screen Capture 3 sc rn cellon 02-22-2019 Type and Screen Capture 3 scrn cell PATIENT: INEZ Wilson LOC: [facility] BILL# : [id number] : 1945 SEX: F ORDERED BY: RISSA Hale ORDERED : 02/22/2019 07:32 COLLECTED: 02/22/2019 09:40 ORDER : [id number] RECEIVED : 02/22/2019 09:40 Confirmation type needs to be drawn. --------- TEST NAME RESULT UNITS RANGES ABN FL ST ABORH Capture O NEG F Antibody 3 Cell Scrn Captu NEG F -------- Normal [facility] Comment on above: Performed By: #### T S3C #### [facility] [address] [place] [address] XR SPINE ENTIRE (2-3 VIEWS)o n 02-22-2019 [...] Hope Rapp MD 02/23/19 Final result Normal [facility] No Panel Information [facility] Encounters Encounter Date Encounter Type Care Provider Facility Start: 08-06-2023 End: 08-07-2023 ambulatory [facility] Start: 07-08-2023 End: 07-09-2023 ambulatory DINOR[facility] Start: 06-11-2023 End: 06-11-2023 ambulatory Referral Self Facility:[facility] Start: 06-11-2023 End: 06-11-2023 ambulatory MD Pat Newell Work Phone: [facility] Work Phone: Start: 06-11-2023 End: 06-11-2023 Patient encounter procedure MD Pat Newell Work Phone: [facility] Work Phone: Start: 03-28-2023 End: 03-28-2023 ambulatory [facility] Start: 11-12-2022 End: 11-13-2022 ambulatory MADELYN DICKSON Facility: Start: 10-18-2022 End: 10-18-2022 ambulatory PAT NEWELL Facility:[facility] Start: 10-10-2022 End: 10-10-2022 ambulatory PAT NEWELL Facility:[facility] Start: 10-10-2022 End: 10-10-2022 Patient encounter procedure Mylene Almeida MD Work Phone: Ophthalmology Comment on above: PCO (posterior capsu lar opacification), bilateral (Primary Dx); Pseudophakia of both eyes; Vitreous degeneration, bilateral; Retinal pigment epithelial mottling of macula Start: 09-25-2022 End: 09-25-[address] PAT NEWELL . Facility: Start: 07-25-2022 End: 07-26-[address] CLINTON DORAN Facility: Start: 07-10-2022 End: 07-11-[address] CLINTON DORAN Facility: Start: 06-10-2022 End: 06-10-2022 ambulatory MD Pat Newell Work Phone: [facility] Work Phone: Start: 06-10-2022 End: 06-10-2022 Patient encounter procedure MD Pat Newell Work Phone: [facility] Start: 05-15-2022 End: 05-15-2022 ambulatory MYLENE ALMEIDA Facility:[facility] Start: 05-02-2022 End: 05-02-2022 ambulatory MYLENE ALMEIDA Facility:[facility] Start: 05-02-2022 End: 05-02-2022 Patient encounter procedure Mylene Almeida MD Work Phone: Ophthalmology Comment on above: S/P cataract extract ion and insertion of intraocular lens, left (Primary Dx) Start: 05-01-2022 End: 05-02-2022 ambulatory NAILA CEDILLO Facility:[facility] Start: 05-01-2022 End: 05-01-2022 Patient encounter procedure Naila Cedillo OD Work Phone: Ophthalmology Comment on above: Superficial punctate keratitis of left eye (Primary Dx); Pseudophakia Start: 05-01-2022 End: 05-01-2022 ambulatory MYLENE ALMEIDA Facility:[facility] Start: 04-24-2022 End: 04-24-2022 ambulatory MYLENE ALMEIDA Facility:[facility] Start: 04-24-2022 Encounter for other preprocedural examination MYLENE ALMEIDA [facility] Start: 04-24-2022 End: 04-24-2022 Patient encounter [...] Start: 03-07-2022 End: 03-07-2022 ambulatory PAT NEWELL Facility:[facility] Start: 01-11-2022 Telephone encounter Mylene henderson MD Work Phone: Ophthalmology Comment on above: Appointment Start: 05-11-2020 End: 05-12-2020 ambulatory PAT NEWELL Facility:[facility] Start: 04-04-2020 End: 04-05-2020 ambulatory PAT NEWELL Facility:[facility] Start: 02-24-2019 End: 03-05-2019 [facility] Start: 02-23-2019 End: 02-24-2019 Evaluation and management of inpatient FAN [facility] [place] Start: 02-23-2019 End: 02-26-2019 Patient encounter procedure [facility] [place] [place] Start: 02-22-2019 End: 02-24-2019 Patient encounter procedure [facility] [place] [place] Start: 02-22-2019 End: 02-27-2019 Patient encounter procedure [facility] [place] [place] Procedures Date Procedure Procedure Detail Performing Clinician [...] INCENTIVE SPIROMETRY RT FAN ASHLEY Start: 02-25-2019 SUPERVISOR REWORK EVAL AND TREAT FAN Y OO Start: 02-25-2019 INCENTIVE SPIROMETRY RT FAN ASHLEY Start: 02-25-2019 INCENTIVE SPIROMETRY RT FAN ASHLEY Start: 02-25-2019 INCENTIVE SPIROMETRY RT FAN ASHLEY Start: 02-25-2019 INITIATE OXYGEN THER APY PROTOCOL [...] 02-24-2019 Culture bacterial quanttative colony count urine AFN ASHLEY Start: 02-24-2019 Urinalysis microscopic only FAN [...] ASHLEY Start: 02-24-2019 PATIENT STATUS (DIRECT) FAN ASHLYE Start: 02-24-2019 REMOVE AND REPLACE T ED [...] OR/PROCEDURAL) FAN ASHLEY Start: 02-23-2019 TRANSFER PATIENT FAN ASHLEY Start: 02-23-2019 FLUORO FOR SURGICAL PROCEDURES [...] of both eyes Expected: 03/07/2023, Expires: 08/29/2023 [facility] Work Phone: Comment on above: Expected: 03/07/2023 , Expires: 08/29/2023 Start: 08-11-2022 ADVANCE DIRECTIVE DISCUSSION ADVANCE DIRECTIVE DISCUSSION [facility] Start: 07-09-2022 COVID-19 VACCINE (4 - Booster for Pfizer series) COVID-19 VACCINE (4 - Booster for Pfizer series) [facility] Start: 05-03-2022 COVID-19 VACCINE (4 - Booster for Pfizer series) COVID-19 VACCINE (4 - Booster for Pfizer series) [facility] Start: 04-11-2022 Influenza vaccination [facility] Start: 08-11-2021 ADVANCE DIRECTIVE DISCUSSION ADVANCE DIRECTIVE DISCUSSION [facility] Start: 03-01-2021 COVID-19 VACCINE (3 - Booster for Pfizer series) COVID-19 VACCINE (3 - Booster for Pfizer series) [facility] Start: 06-20-2019 DIABETES SCREEN DIABETES SCREEN [facility] Start: 06-14-2017 Adult depression screening assessment DEPRESSION SCREENING [facility] Start: 05-30-2013 PNEUMOCOCCAL: 65+ (2 - PCV) PNEUMOCOCCAL: 65+ (2 - PCV) [facility] Start: 2011 BONE DENSITY BONE DENSITY [facility] Start: 01-22-1996 SHINGRIX VACCINE (1 of 2) SHINGRIX VACCINE (1 of 2) [facility] Start: 1991 COLOGUARD (FIT-DNA) COLOGUARD (FIT-D NA) [facility] Start: 1991 Colonoscopy COLONOSCOPY [facility] Start: 1991 COLORECTAL CANCER SCREENING COLORECTAL CANCER SCREENING [facility] Start: [address] COLONOGRAPHY 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 HELPER KALA DISEASE VISIT ANNUAL PCP TEAM CHRONIC DISEASE VISIT [facility] Start: 01-22-1964 BP CONTROLLED (<130/80) BP CONTROLLE D (<130/80) [facility] Start: 01-22-1964 Hepatitis B surface antibody level LDL CHOLESTEROL [facility] Start: 01-22-1964 HEPATITIS C SCREENING HEPATITIS C SC REENING [facility] Start: 1958 Adult depression screening assessment DEPRESSION SCREENING [facility] Start: 1951 COVID-19 VACCINE (#1) COVID-19 VACCI NE (#1) [facility] CORNEAL TOPOGRAPHY PENTACAM OU (BOTH EYES) CORNEAL TOPOGRAPHY PENTACAM OU (BOTH EYES) OPHT Imaging Routine Combined forms of age-related cataract of both eyes 04/24/2022 12:46 PM EDT [facility] Work Phone: [facility] Immunizations Immunization Date Immunization Notes Care Provider Fa cili 05-30-2012 influenza virus vacc ine, unspecified formulation Mylene Wayne MD Work Phone: [facility] 05-30-2012 pneumococcal polysaccharide vaccine, 23 valent Mylene Wayne MD Work Phone: [facility] Payers Date Payer Category Payer Self-pay [id number] 2019 Private Health Insurance [id number] 2019 Private Health Insurance [employer] MARTINSA MEDICARE SUPPLEMENT [id number] 2019-Present [phone] [address] [place] [address] Indemnity [id number] 2019 Private Health Insurance [employer] MARTINSA MEDICARE SUPPLEMENT [id number] 2019-Present [phone] [address] [place] [address] Indemnity [id number] 2016 Medicare [id number] 2016 Private Health Insurance [id number] 2011 Medicare MEDICARE MEDICAR E A AND B [id number] 2011-Present [phone] [address] [address] [place] [address] Medicare [id number] 2011 Medicare MEDICARE MEDICAR E A AND B [id number] 2011-Present [phone] [place] [address] Medicare [id number] 1959 Medicare [id number] 1959 Private Health Insurance [id number] 1946 Unknown [id number] 1946 Unknown [id number] .182 1946 Unknown [id number] .182 1946 Unknown [id number] .182 1946 Unknown [id number] .182 1946 Unknown [id number] .182 1946 Unknown [id number] .647 1946 Unknown [id number] .647 1946 Unknown [id number] .593 1946 Unknown [id number] .593 1946 Unknown [id number] .593 1946 Unknown [id number] .593 1946 Unknown [id number] .593 Unknown [id number] .531 Social History Date Type Detail Facility Start: 04-28-2012 End: 07-30-2017 Tobacco smoking status NHIS Ex-smoker [facility] End: 04-28-1990 History of tobacco use Current smoker [facility] End: 04-28-1990 History of tobacco use Cigarette Smoker [facility] Start: 04-28-2012 End: 04-24-2022 Cigarettes smoked current (pack per day) - Reported 0.7 [facility] Start: 06-14-2016 End: 10-10-2022 Alcohol intake Current non-drinker of alcohol (finding) [facility] Start: 1945 Sex Assigned At Not on file [facility] Start: 04-24-2022 Tobacco use and exposure Former smokeless tobacco user [facility] Work Phone: Start: 04-07-2022 End: 05-01-2022 Exposure to SARS-CoV-2 (event) Not sure [facility] Work Phone: Start: 1945 Sex Assigned At Female F [facility] Medical Equipment Procedure Code Equipment Code Equipment Original Text Equipment Identifier Dates Elan Bn Smpx P Radpq Fd Strl - [id number] Start: 05-27-2012 Sys Bncmnt Prep Kt Plg Brsh - [id number] Start: 05-27-2012 Comment on above: Description: CEMENT RESTRICTOR Stem Fem 50mm 12mm Elan Trthln - [id number] Start: 05-27-2012 Comment on above: Description: cemente d stem Aug Tib 10mm Trthln 3 Rt - [id number] Start: 05-27-2012 Comment on above: Description: AUGMENT Comp Fem 3 Rt Kn Total Stab - [id number] Start: 05-27-2012 Comment on above: Description: TS FEMU R Ins Tib 3 13mm K n X3 Cs Trthln - [id number] Start: 05-27-2012 Comment on above: Description: CS INSE RT Comp Pat 10mm 32mm Asym Trthln - [id number] Start: 05-27-2012 Comment on above: Description: PATELLA Baseplt Tib Trthln 3 Kn Total - [id number] Start: 05-27-2012 Comment on above: Description: UNIVERS AL BASEPLATE Lens Iol 0d +19. 5 Talat Uv Abs - [id number] Start: 05-01-2022 Comment on above: Description: -1.52 Lens Iol 0d +18 Talat Uv Abs - [id number] Start: 05-15-2022 Comment on above: Description: -0.34 Clinical Notes 01-16-2022 to 08-06-2023 Patient Sebastian Almeida V, MD - 10/10/2022 12:24 PM Lenin Murphy OD - 10/10/2022 11:44 AM Mark Almeida V, MD - 05/02/2022 10:44 AM EDT Note Date & Type Note Facility 08-06-2023 Note Patient: Son arguelles Procedure Information Date/Time: 08/06/23 1030 Procedure: TRANSESOPHAGEAL ECHO (VIOLA) Location: [facility] Clinical information reviewed: Allergies Meds Physical Exam Airway Mallampati: II TM distance: >3 FB Neck ROM: full Cardiovascular Dental Pulmonary Abdominal Anesthesia Plan ASA 2 other (Moderate sedation) Additional Equipment Requests [facility] 07-08-2023 Note Patient here for [facility] up TB for SOB and chest pain. She was started on isosorbide. She is scheduled for outpatient stress test next week. She denies chest pain. SOB is improving. C/o LE edema which resolves by morning. C/o fatigue. Review of Systems Cardiovascular: Positive for leg swelling. All other systems reviewed and are negative. [facility] 07-08-2023 Note Cardiovascular Medic ine [facility] SUBJECTIVE Chief Complaint Patient presents with Fatigue Congestive Heart Failure Edema Shortness of Breath Son Hubbard is a 78 y.o. female here for hospital follow-up. HPI She started to have feeling of chest congestion around 06/21/2023 (this was similar to how she felt prior to her stent placement) and she presented to [facility]. She states she was having SOB [...] March 2020 she was admitted to the [facility] with worsening shortness of breath. The initial [...] Mitral valve regurgitation Coronary artery disease involving [place] coronary artery of [place] heart without angina pectoris Primary hypertension Nonrheumatic [...] Rfl: liothyronine ( (more content not included)... [facility] 03-28-2023 Note [place] Cardiology - [facility] Subjective Son Hubbard is a 78 y.o. year old female patient being seen for Follow-up (6 MONTH FOLLOW UP ) Patient Active Problem List Diagnosis Mitral valve regurgitation Coronary artery disease involving [place] coronary artery of [place] heart without angina pectoris Primary hypertension Nonrheumatic [...] March 2020 she was admitted to the [facility] with worsening shortness of breath. The initial [...] tablet, TAKE 1 (more content not included)... [facility] 10-18-2022 Note HNO ID: [id number] Author: Steph Murphy, JOAQUIM Service: ? Author Type: WINDOWS MIGRATION TECHNICIAN Type: Progress Notes Filed: 10/18/2022 10:33 AM [...] Murphy, OD October 18, 2022 10:31 AM [facility] 10-10-2022 Note HNO ID: [id number] Author: Mylene Almeida V, MD Service: ? [...] patient was offered a surgery/procedure at a [facility] facility. The surgeon/proceduralist and patient have discussed [...] week with Dr ROSE or Dr BHATTI (VATtammy, Manifest refraction) The documentation recorded by the [...] ALMEIDA MD October 10, 2022 12:24 PM [facility] 10-10-2022 Note HNO ID: [id number] Author: Steph Murphy OD Service: ? Author Type: WINDOWS MIGRATION TECHNICIAN Type: Progress Notes Filed: 10/10/2022 12:30 PM [...] with all of its relevant components. Steph Katherine, OD October 10, 2022 11:45 AM [facility] 10-10-2022 Instructions Mylene Almeida V, MD [...] so we recommend you come with a driver utility worker. You will then be scheduled for a follow up in approximately one week. If you notice any of the following symptoms of retinal detachment, please call our office at : - Flashes of light - Increased number of floaters or large floaters - Curtains, veils, or spider web pattern over vision documented in this encounter [facility] 10-10-2022 History of Present illness Narrative The [...] patient was offered a surgery/procedure at a [facility] facility. The surgeon/proceduralist and patient have discussed [...] 2022 11:45 AM documented in this encounter [facility] 05-02-2022 Note HNO ID: [id number] Author: Mylene Almeida V, MD Service: ? [...] ALMEIDA MD May 02, 2022 10:44 AM [facility] 05-02-2022 History of Present illness Narrative [...] 2022 10:44 AM documented in this encounter [facility] 05-01-2022 Note HNO ID: [id number] Author: Naila Cedillo OD Service: ? Author Type: WINDOWS MIGRATION TECHNICIAN Type: Progress Notes Filed: 05/02/2022 7:54 AM [...] Cedillo, OD May 01, 2022 6:05 PM [facility] 05-01-2022 History of Present illness Narrative [...] 2022 6:05 PM documented in this encounter [facility] 04-24-2022 Note HNO ID: [id number] Author: CHRISTAL Calles Service: ? Author Type: Asphalt Tamper Type: Progress Notes Filed: 04/24/2022 12:47 PM Note Text: Confirmed Aim: -1.50 OS, [place] OD CHRISTAL Calles April 24, 2022 12:46 PM [facility] 04-24-2022 History of Present illness Narrative Confirmed Aim: -1.50 OS, [place] OD CHRISTAL Calles April 24, 2022 12:46 PM documented in this encounter [facility] 03-07-2022 Note HNO ID: [id number] Author: Mylene Almeida V, MD Service: ? [...] and surgery - Comanage with Dr Wilson; [facility] POD #1 Cataract Presurgical Documentation Cataract: [...] patient was offered a surgery/procedure at a [facility] facility. The surgeon/proceduralist and patient have discussed [...] ALMEIDA MD March 07, 2022 1:25 PM [facility] 03-07-2022 Note HNO ID: [id number] Author: Marian Arroyo OD Service: ? Author Type: WINDOWS MIGRATION TECHNICIAN Type: Progress Notes Filed: 03/07/2022 1:34 PM Note Text: (H24.223) Combined forms of age-related cataract of both eyes (primary encounter diagnosis) (H43.811) Posterior vitreous detachment of right eye Patient referred by Cat Wilson O.D. Cataracts Both eyes, evaluation today with Mylene Almeida M.D. Posterior vitreous detachment Right eye, retina flat and intact Both eyes rpe changes Left eye, taking AREDS2 Marian Arroyo, OD March 07, 2022 12:59 PM [facility] 03-07-2022 History of Present illness Narrative [...] and surgery - [facility] Cataract Presurgical Documentation Cataract: [...] patient was offered a surgery/procedure at a [facility] facility. The surgeon/proceduralist and patient have discussed [...] O.D. Cataracts Both eyes, evaluation today with Mlyene Almeida M.D. Posterior vitreous detachment Right eye, retina flat and intact Both eyes rpe changes Left eye, taking AREDS2 Marian Arroyo OD March 07, 2022 12:59 PM documented in this encounter [facility] 01-16-2022 Miscellaneous Notes Patient has been rescheduled with Dr. Almeida for March 07 in [place] Patient called Appointment Center and was scheduled with Dr. Taylor. We are waiting to confirm from Dr. Wilson office if it is ok for patient to stay scheduled with or to call and reschedule with Dr. Almeida LVM for patient to schedule at Cataract Evaluation with Dr. Almeida in [place] per faxed referral from Dr. Wilson. First attempt 01/11/22. Referral scanned into chart. documented in this encounter [facility] Evaluation note Diagnosis Combined forms of age-related cataract of both eyes- Primary Other and combined forms of senile cataract Posterior vitreous detachment of right eye Vitreous degeneration [facility] Combined forms of age-related cataract of both eyes- Primary Other and combined forms of senile cataract [facility] Diagnosis Combined forms of age-related cataract of both eyes Other and combined forms of senile cataract Combined forms of age-related cataract of both eyes Other and combined forms of senile cataract Combined forms of age-related cataract of both eyes Other and combined forms of senile cataract [facility] Diagnosis Superficial punctate keratitis of left eye- Primary Pseudophakia Lens replaced by other means Combined forms of age-related cataract of both eyes Other and combined forms of senile cataract [facility] S/P cataract extraction and insertion of intraocular lens, left- Primary Combined forms of age-related cataract of both eyes Other and combined forms of senile cataract [facility] noteNo assessment information available[facility] Work Phone: Evaluation note* Diagnosis PCO (posterior capsular opacification), bilateral- Primary After-cataract, unspecified Pseudophakia of both eyes Lens replaced by other means Vitreous degeneration, 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 Other retinal disorders documented in this encounter [facility] Summary Purpose Family History No Family History [...] section and content) DATE CREATED AUTHOR 03/05/2019 [facility] DATE CREATED AUTHOR AUTHOR'S ORGANIZ ATION 03/13/2021 [facility] DATE CREATED AUTHOR AUTHOR'S ORGANIZ ATION 10/19/2022 [facility] DATE CREATED AUTHOR AUTHOR'S ORGANIZ ATION 11/18/2022 [facility] DATE CREATED AUTHOR AUTHOR'S ORGANIZ ATION 06/18/2023 [facility] DATE CREATED AUTHOR AUTHOR'S ORGANIZ ATION 08/07/2023 [facility] Source Comments (unrecognize d section and content) In the event this informatio n is protected by the Federal Confidentiality of Alcohol and Drug Abuse Patient Records regulations: The Federal rules restrict any use of the information to criminally investigate or prosecute any alcohol or drug abuse patient.[facility] the event this information is protected by the Federal Confidentiality of Alcohol and Drug Abuse Patient Records regulations: The Federal rules restrict any use of the information to criminally investigate or prosecute any alcohol or drug abuse patient.[facility] Health[facility] the event this information is protected by the Federal Confidentiality of Alcohol and Drug Abuse Patient Records regulations: The Federal rules restrict any use of the information to criminally investigate or prosecute any alcohol or drug abuse patient.[facility] HealthIn the event this information is protected by the Federal Confidentiality of Alcohol and Drug Abuse Patient Records regulations: The Federal rules restrict any use of the information to criminally investigate or prosecute any alcohol or drug abuse patient.[facility] Health[facility] the event this information is protected by the Federal Confidentiality of Alcohol and Drug Abuse Patient Records regulations: The Federal rules restrict any use of the information to criminally investigate or prosecute any alcohol or drug abuse patient.[facility] HealthIn the event this information is protected by the Federal Confidentiality of Alcohol and Drug Abuse Patient Records regulations: The Federal rules restrict any use of the information to criminally investigate or prosecute any alcohol or drug abuse patient.[facility] HealthIn the event this information is protected by the Federal Confidentiality of Alcohol and Drug Abuse Patient Records regulations: The Federal rules restrict any use of the information to criminally investigate or prosecute any alcohol or drug abuse patient.[facility] Reason for Visit (unrecogniz ed section and [...] Status: Inactive Member Role Status Dates Pat eNwell MD Primary Care Provider, Referring Pr ovider Active Referral Self Attending Provider Active Chief Counsel Relationship Specialty Start Date End Date Pat Newell MD PCP - General Family Practice 03/30/12 Chief Counsel Relationship Specialty Start Date End Date Pat Newell MD PCP - General Family Practice 03/30/12 Chief Counsel Relationship Specialty Start Date End Date Pat Newell MD PCP - General Family Practice 03/30/12 Chief Counsel Relationship Specialty Start Date End Date Pat Newell MD PCP - General Family Practice 03/30/12 Chief Counsel Relationship Specialty Start Date End Date Pat Newell MD PCP - General Family Medicine 03/30/12 Chief Counsel Relationship Specialty Start Date End Date Pat Newell MD PCP - General Family Medicine 03/30/12 Chief Counsel Relationship Specialty Start Date End Date Pat [...] BE BASED ON THE PRIMARY CLINICAL RECORDS. [employer] provides no warranty or guarantee of the accuracy or completeness of information in this document.
--- NOTE | 2023-08-09 15:08 | XR_ITS ---
[facility] [id number] Patient Name: SON WILEY MRN: [id number] date: 1945 Sex: F Assigned Patient Location: ER Current Patient Location: ER Accession/Order Number: [id number] Exam Date: 08/09/2023 16:20 Report Date: 08/09/2023 17:05 At the request of: BALDOMERO ARROYO Procedure: XR chest 2V EXAM: XR chest 2V , 08/09/2023 HISTORY: Cough COMPARISON: Chest x-ray from 06/19/2023 TECHNIQUE: Frontal and lateral x-ray views of the chest upright position. FINDINGS: Cardiac silhouette within normal limits. No hilar or mediastinal enlargement. The lungs and costophrenic angles are clear. No acute osseous findings. Mild atherosclerotic calcification of the aortic arch. XR/XR chest 2V IMPRESSION: No acute cardiopulmonary findings. Electronically authenticated by: MAREK HURD Date: 08/09/2023 17:05
[2023-08-09 15:20] LABS: Influenza Virus A Antigen Negative; Influenza Virus B Antigen Negative; Internal Control Within Normal Limits
[2023-08-09 15:21] LABS: Internal Control Within Normal Limits; Respiratory Syncytial Virus Not Detected (NOT DETECTE)
--- NOTE | 2023-08-09 16:20 | PC.NURSE ---
1430 - PT LUNGS CLEAR. NAUSEOUS LAST FEW DAYS, NO VOMITING. COVID TEST NEGATIVE. TAKING LEVAQUIN BY DR NEWELL
--- NOTE | 2023-08-09 17:55 | ECG_ITS ---
[facility] Test Date: 2023-08-09 Pat Name: SON WILEY Department: Room: - Gender: Female [employer] Supervisor: : 1945 Requested By: PAT NEWELL Order Number: [id number] Reading MD: PAT NEWELL Measurements Intervals [place] Rate: 84 P: 58 HI: 148 QRS: 57 QRSD: 76 T: 73 QT: 366 QTc: 407 Interpretive Statements 1100 Sinus rhythm [address] depression 9150 abnormal ECG No previous ECG available for comparison Electronically Signed On 08-14-2023 7:14:15 EST by PAT NEWELL
[2023-08-09 18:17] VITALS: BP 121/87; PULSE 87; O2SAT 100
--- NOTE | 2023-08-09 18:17 | ED.NAVMDI1 ---
HPI - Nausea/Vomiting/Diarrhea General Chief complaint: Nausea/Vomiting/Diarrhea Stated complaint: NAUSEA Time Seen by Provider: 08/09/23 15:07 Source: patient and family Mode of arrival: walk-in Limitations: no limitations History of Present Illness HPI Narrative: The patient presenting to us with a congested nasal mucosa after she recently was diagnosed with upper respiratory tract infection symptoms after she was exposed to her family members who had COVID-19 over the . The patient has been having congestion as well as cough productive of sputum as well as no difficulty breathing no vomiting but she had nausea over the last 24 hours after she recently started the levofloxacin. The patient was given levofloxacin by her primary care doctor to cover for possible underlying infection. No fever no chills no other complaints and the patient have runny nose. No chest pain at any time Related Data Home Medications Medication Instructions Recorded Confirmed aspirin 81 mg capsule 81 mg PO DAILY 06/19/23 06/19/23 atorvastatin 40 mg tablet 40 mg PO DAILY 06/19/23 06/19/23 escitalopram oxalate 10 mg tablet 10 mg PO DAILY 06/19/23 06/19/23 (Lexapro) hydralazine 25 mg tablet 25 mg PO BID 06/19/23 06/19/23 loperamide 2 mg capsule 2 mg PO DAILY 06/19/23 06/19/23 (Anti-Diarrheal (loperamide)) losartan 100 mg tablet (Cozaar) 100 mg PO DAILY 06/19/23 06/19/23 pantoprazole 40 mg tablet,delayed 40 mg PO DAILY 06/19/23 06/19/23 release vitamin A-vitamin C-vit E-min 1 tab PO DAILY 06/19/23 06/19/23 tablet (Vision tablet) Previous Rx's Medication Instructions Recorded benzonatate 200 mg capsule 200 mg PO TID PRN cough #60 caps 06/20/23 isosorbide mononitrate 30 mg 30 mg PO Q24H #30 tabs 06/20/23 tablet,extended release 24 hr liothyronine 5 mcg tablet 5 mcg PO QD #30 tabs 06/20/23 guaifenesin 600 mg tablet, 600 mg PO BID PRN cough #10 tabs 08/09/23 extended release 12 hr (Mucinex) promethazine 12.5 mg tablet 6.25 mg (1/2 x 12.5 mg) PO TID PRN 08/09/23 nausea and vomiting #7 tabs Allergies Allergy/AdvReac Type Severity Reaction Status Date / Time SERINA Inhibitors Allergy Severe Verified 06/19/23 07:21 diltiazem Allergy Severe shortness Verified 06/19/23 07:21 of breath gabapentin [From Neurontin] Allergy Severe Verified 06/19/23 07:21 metoprolol Allergy Severe Verified 06/19/23 07:21 amlodipine AdvReac Severe swelling Verified 06/19/23 07:21 morphine AdvReac Severe Nausea Verified 06/19/23 07:21 Review of Systems ROS Status of ROS 10 or more systems reviewed and unremarkable except as noted in history and below [facility] Medical History (Updated 08/09/23 @ 18:11 by Nichelle Dasilva MD) Dyspnea ?R06.00 - Dyspnea, unspecified (ICD-10) Social History Smoking status: Never smoker Exam Narrative Exam Narrative: Nurses notes and vital signs reviewed and patient is not hypoxic. General: Well-appearing and in no apparent distress. Skin: Warm, dry, no pallor noted. No rash. Head: Normocephalic, atraumatic. Neck: Supple, non-tender. Eye: Pupils are equal, round and EOMI. No scleral icterus. Ears, Nose, Mouth, and Throat: TM are clear, no nasal mucosal hypertrophy. Oral mucosa is moist, no posterior oropharynx erythema, uvula is mid-line Cardiovascular: Regular Rate and Rhythm without murmur, gallop or rub. Respiratory: No accessory muscle use or respiratory distress. Lungs are clear to auscultation, no wheezing, rales or rhonchi Chest Wall: no tenderness Back: No midline thoracic or lumbar vertebral tenderness. No CVA tenderness Musculoskeletal: normal ROM, no calf or popliteal tenderness, no lower extremity edema/swelling GI: Abdomen is soft, non-distended. Normal bowel sounds. No masses appreciated. No tenderness to palpation. No rebound, guarding, or rigidity noted. Neurological: A&O x4. No cranial nerve dysfunction observed. No truncal ataxia. Moves all extremities. Sensation intact. Psychiatric: Cooperative and interactive. Normal mood and affect. Constitutional Vital Signs, click to edit/add: Last Vital Signs Temp 98.5 F 08/09/23 14:30 Pulse 98 H 08/09/23 14:30 Resp 18 08/09/23 14:30 BP 133/82 08/09/23 14:30 Pulse Ox 95 08/09/23 14:30 O2 Del Method Room Air 08/09/23 14:30 Course Vital Signs Vital signs: Vital Signs Temperature 98.5 F 08/09/23 14:30 Pulse Rate 98 H 08/09/23 14:30 Respiratory Rate 18 08/09/23 14:30 Blood Pressure 133/82 08/09/23 14:30 Pulse Oximetry 95 08/09/23 14:30 Oxygen Delivery Method Room Air 08/09/23 14:30 Temperature 98.5 F 08/09/23 14:30 Pulse Rate 98 H 08/09/23 14:30 Respiratory Rate 18 08/09/23 14:30 Blood Pressure 133/82 08/09/23 14:30 Pulse Oximetry 95 08/09/23 14:30 Oxygen Delivery Method Room Air 08/09/23 14:30 MDM - Nausea/Vomiting/Diarrhea MDM Narrative Medical decision making narrative: Patient EKG in the ER was showing sinus rhythm with a heart rate of [address] elevation or depression her EKG compared to the last time she had an EKG at this similar The patient also did not want any blood workup to be done and here nausea already resolved by the time she got the EKG. Her blood pressure was within normal and her presentation mostly secondary to viral bronchitis with nausea mostly secondary viral infection possibly irritation from the levofloxacin. I did ask to the send right now that she does need to continue the levofloxacin at the moment but she is to start taking Mucinex supportive care and Phenergan was provided with nausea and vomiting as supportive care at home I did not start the patient on Zofran because she was taking levofloxacin at home and the fact that she might restart taking levofloxacin at home in case she feels short of breath or any fever The patient is to follow up with primary care physician in next 2-3 days or to return to the emergency department should any of the signs or symptoms worsen or new symptoms develop. The patient agrees with the following Diagnosis and Treatment plan and the patient will be discharged home. Lab Data Labs: Lab Results 08/09/23 Range/Units 14:35 Influenza Type A Ag Negative Influenza Type B Ag Negative RSV Antigen Not detected (NOT DETECTE) Discharge Plan Discharge Chief Complaint: Nausea/Vomiting/Diarrhea Clinical Impression: URTI (acute upper respiratory infection) Patient Disposition: Home, Self-Care Time of Disposition Decision: 18:11 Condition: Good Prescriptions / Home Meds: New promethazine 12.5 mg tablet 6.25 mg PO TID PRN (Reason: nausea and vomiting) Qty: 7 0RF Rx Instructions: 3 doses during day; last dose no later than 4 hr before bedtime guaifenesin [Mucinex] 600 mg tablet extended release 12hr 600 mg PO BID PRN (Reason: cough) Qty: 10 0RF No Action losartan [Cozaar] 100 mg tablet 100 mg PO DAILY pantoprazole 40 mg tablet,delayed release (DR/EC) 40 mg PO DAILY aspirin 81 mg capsule 81 mg PO DAILY hydralazine 25 mg tablet 25 mg PO BID loperamide [Anti-Diarrheal (loperamide)] 2 mg capsule 2 mg PO DAILY escitalopram oxalate [Lexapro] 10 mg tablet 10 mg PO DAILY atorvastatin 40 mg tablet 40 mg PO DAILY Vision Tablet 1 tab PO DAILY isosorbide mononitrate 30 mg Tablet Extended Release 24 Hr 30 mg PO Q24H Qty: 30 11RF liothyronine 5 mcg Tablet 5 mcg PO QD Qty: 30 11RF benzonatate 200 mg capsule 200 mg PO TID PRN (Reason: cough) Qty: 60 11RF Instructions: Acute Bronchitis (ED), Viral Syndrome (ED) Stand Alone Forms: Portal Instructions Referrals: Demarco Graves MD [Primary Care Provider] - 1 week
== END 2023-08-09 18:18 | disposition home or self-care (01) ==
PROVIDERS: Emergency Provider Emergency Medicine; PCP Family Medicine
DX: J06.9 Acute upper respiratory infection, unspecified (principal); Z20.822 Contact with and (suspected) exposure to COVID-19; Z79.82 Long term (current) use of aspirin; Z79.899 Other long term (current) drug therapy
CPT/HCPCS: 71046; 80053; 84484; 87420; 87798; 87804; 93005; 99285

== ENCOUNTER 2023-09-09 11:00 | Outpatient (OUT) | payer MEDICARE, OTHER, SELFPAY ==
--- OUTSIDE RECORDS SUMMARY | 2023-09-09 11:05 | XMS_ITS | CCD ---
Author Name Unknown Address [address] [place] [address] Organization [facility] Care Team Providers Care Soc Analyst Name Role Phone ASHLEY, FAN H. Referring [...] Provider Pat Newell MD Primary Care Provider [phone] Pat Newell MD Primary Care Provider [phone] MD Pat Newell Primary Care Provider [phone] MD Pat Newell Referring Provider Self, Referral Attending Provider Unavailable Pat Newell MD Primary Care Provider [phone] MYLENE ALMEIDA Referring Unavailable HOPAT Soto M [...] DICKSON Admitting Unavailable MADELYN DICKSON Attending Unavailable HOY ., DR STEWART Primary Care Unavailable MADELYN DICKSON Consulting Unavailable MD Pat Newell Primary Care Provider [phone] MD Pat Newell Referring Provider Self, Referral Attending Provider Unavailable Self, Referral Attending Unavailable Pat Newell Primary Care Unavailable Pat Newell Referring Unavailable Self, Referral Admitting Unavailable CLINTON DORAN Referring Unavailable DINORAH MONTES Attending Unavailable MOUKARBELCLINTON Attending Unavailable MOUKARBELCLINTON Attending Unavailable Allergies Allergy Classification Reported Allergen(s) Allergy Type Date of Onset Reaction(s) Facility Angiotensin Converting Enzyme (SERINA) Inhibitors (1 source) Angiotensin Converting Enzyme (Serina) Inhibitors Drug Allergy 08-25-2020 [facility] Repository Opioid Agonists (2 sources) Codeine; Translations: [morphine] Drug Allergy 04-04-2020 [facility] Repository (5 sources) Angiotensin-conv erting enzyme inhibitor agent; Translations: [SERINA INHIBITORS] Drug Allergy 04-28-2012 Rash [facility] (9 sources) Codeine; Translations: [CODEINE] Drug Allergy 04-28-2012 Vomiting [facility] (8 sources) HYDROmorphone; Translations: [HYDROMORPHONE (BULK)] Drug Allergy 05-12-2012 Vomiting [facility] (6 sources) Angiotensin-conv erting enzyme inhibitor agent Drug Allergy 04-28-2012 [facility] (6 sources) amLODIPine; Translations: [AMLODIPINE] Drug Allergy 04-24-2022 [facility] (3 sources) Acetaminophen; Translations: [acetaminophen] Drug Allergy 07-28-2017 [facility] (3 sources) HYDROcodone; Translations: [hydrocodone] Drug Allergy 07-28-2017 [facility] (4 sources) Meperidine; Translations: [meperidine] Drug Allergy 07-28-2017 [facility] (5 sources) Morphine; Translations: [morphine] Drug Allergy 07-28-2017 [facility] (1 source) Angiotensin Converting Enzyme (Serina) Inhibitors Drug allergy (disorder) 04-22-2013 [facility] Repository (1 source) Codeine Drug Allergy 04-29-2013 [facility] Rep[facility] (1 source) Meperidine Drug Allergy 04-29-2013 [facility] Repository (1 source) Angiotensin Converting Enzyme (Serina) Inhibitors Drug allergy (disorder) 07-28-2017 [facility] Repository (1 source) Amoxicillin; Translations: [AMOXICILLIN] Drug Allergy 03-13-2023 [facility] Repository (1 source) gabapentin; Translations: [GABAPENTIN] Drug Allergy 05-25-2019 [facility] Repository Medications Current Medications Medication Drug Class(es) [...] 2017 1:00am take 2 tablets by mo ut once daily losartan (COZAAR) 50 mg tablet [...] Comment on above: Take 1 capsule by [facility] once daily. Naproxen (2 sources) Nonsteroidal Anti-inflammatory [...] Coronary arteriosclerosis; Translations: [Atherosclerotic heart disease of [place] coronary artery without angina pectoris] Onset: 04-24-2022 [...] Test Name Value Interpretation Reference Range Facility Office Visiton 09-03-2023 Follow-up visit [id number] Brandi Hubbard cca 1945 F Date Provider Department Center 09/03/2023 CLINTON PETERS [facility] Family History Problem Relation Age of Onset Coronary artery disease Father Hypertension Father Family Status - Relation Status Age at Father Level of Service:01784 MS OFFICE/OUTPATIENT ESTABLISHED MOD MDM 30 MIN [facility] Documentationon 08-06-2023 Documentation [id number] Brandi Hubbard cca S 1945 Provider Department Center 08/06/2023 [facility] Family History Problem Relation Age of Onset Coronary artery disease Father Hypertension Father Family Status - Relation Status Age at Father [facility] HPon 08-06-2023 HP H&P reviewed. The patient was examined and there are no changes to the H&P. [facility] NURSNOTEon 08-06-2023 NURSNOTE Patient to be seen i n clinic by Dr. Doran or nurse practitioner in 1 month to discuss VIOLA results and medical plan. Message left with [facility] to call patient with appoint date and time. Patient provided the number ([phone]) to call [facility] if she does not receive an appointment call by 08/08/2023. [facility] NURSNOTE RN educated pt on d/ c instructions. RN encouraged pt to voice any questions or concerns. Pt verbalizes no questions or concerns at this time. Pt was wheeled off of unit with all of belongings. [facility] NURSNOTE Bedside swallow stud y completed and passed. [facility] Prep for Procedureon 023 Prep for Procedure [id number] Brandi Hubbard cca S 1945 Provider Department Center 08/06/2023 [facility] PETERS [facility] Count Family History Problem Relation Age of Onset Coronary artery disease Father Hypertension Father Family Status - Relation Status Age at Father [facility] Telephoneon 07-28-2023 Telephone [id number] Brandi Hubbard cca S 1945 Provider Department Center 07/28/2023 [facility] Family History Problem Relation Age of Onset Coronary artery disease Father Hypertension Father Family Status - Relation Status Age at Father [facility] 37on 07-08-2023 37 *Resume lasix. Take 20mg daily x1 week then go back to every other day. *Have stress test done. *Watch your fluid intake. Try to limit to 2 liters a day. *Eat a low sodium diet. Normal [facility] HPon 07-08-2023 HP Patient here for fol low up TB for SOB and chest pain. She was started on isosorbide. She is scheduled for outpatient stress test next week. She denies chest pain. SOB is improving. C/o LE edema which resolves by morning. C/o fatigue. Review of Systems Cardiovascular: Positive for leg swelling. All other systems reviewed and are negative. [facility] Office Visiton 07-08-2023 Follow-up visit [id number] Brandi Hubbard cca 1945 F Date Provider Department Center 07/08/2023 DINORAH BETHEA [facility] History Problem Relation Age of Onset Coronary artery disease Father Hypertension Father Family Status - Relation Status Age at Father Level of Service:49502 MS OFFICE/OUTPATIENT ESTABLISHED MOD MDM 30-39 MIN Reason for Visit and Comments: Fatigue [46] Congestive Heart Failure [127] Edema [[id number]] Shortness of Breath [971687] [facility] MM screening mammo BI w/CADo n 06-11-2023 MM screening mammo BI w/CAD [facility] [place] [address] Mammography Report Signed Patient: Son Hubbard MR#: [id number] : 1945 Acct:[id number] Age/Sex: 78 / F ADM Date: 06/11/23 Loc: [place] Room: Type: [facility] Attending Dr: Referral Self Copies to: Pat [...] Charlie Green M.D.06/11/2023 12:04 PM Dictation Location: [facility] Transcribed By: [facility] 06/11/23 1204 Dictated By: Charlie Green II, MD 06/11/23 1201 Signed By: 06/11/23 1204 [facility] Office Visiton 03-28-2023 Follow-up visit [id number] Brandi Hubbard cca 1945 F Date Provider Department Center 03/28/2023 CLINTON PETERS [facility] Family History Problem Relation Age of Onset Coronary artery disease Father Hypertension Father Family Status - Relation Status Age at Father Level of Service:02925 MS OFFICE/OUTPATIENT ESTABLISHED LOW MDM 20-29 MIN Reason for Visit and Comments: Follow-up [210348] - 6 MONTH FOLLOW UP Normal [facility] INSULINon 11-13-2022 Insulin 16.2 uIU/mL Normal 2.6-24.9 [facility] Comment on above: Performed By: #### I NSULIN ####[facility] [id number] [address]DrCharly Britton CBC AUTO DIFFon 11-12-2022 BASO # 0.0 103/ul Normal 0.0-0.1 [facility] Comment on above: Performed By: #### C BC #### [facility] [address] [place] [address] Dr. Isi Britton Basophils/100 WBC (Bld) 0.6 % Normal 0.2-2.0 [facility] Comment on above: Performed By: #### C BC #### [facility] [address] [place] [address] Dr. Isi Britton EO # 0.1 103/ul Normal 0.0-0.7 [facility] Comment on above: Performed By: #### C BC #### [facility] [address] [place] [address] Dr. Isi Britton Eosinophils/100 WBC (Bld) 1.3 % Normal 0.9-7.0 [facility] Comment on above: Performed By: #### C BC #### [facility] [address] [place] [address] Dr. Isi Britton Erythrocyte distribution width (RBC) [Ratio] 13.1 % Normal 11.0-15.0 [facility] Comment on above: Performed By: #### C BC #### [facility] [address] [place] [address] Dr. Isi Britton Hematocrit (Bld) [Volume fraction] 40.1 % Normal 36.0-48.0 [facility] Comment on above: Performed By: #### C BC #### [facility] [address] [place] [address] Dr. Isi Britton Hemoglobin (Bld) [Mass/Vol] 13.5 g/dL Normal 12.0-16.0 [facility] Comment on above: Performed By: #### C BC #### [facility] [address] [place] [address] Dr. Isi Britton IG # 0.01 10e3/ul Normal 0.00-0.03 [facility] Comment on above: Performed By: #### C BC #### [facility] [address] [place] [address] Dr. Isi Britton IG % 0.2 % Normal 0.0-0.5 [facility] Comment on above: Performed By: #### C BC #### [facility] [address] [place] [address] Dr. Isi Britton LYMPH # 1.6 103/ul Normal 1.2-3.8 [facility] Comment on above: Performed By: #### C BC #### [facility] [address] [place] [address] Dr. Isi Britton Lymphocytes/100 WBC (Bld) 24.9 % Normal 20.5-60.0 [facility] Comment on above: Performed By: #### C BC #### [facility] [address] [place] [address] Dr. Isi Britton MANUAL DIFF REQ NO Normal [facility] Comment on above: Performed By: #### C BC #### [facility] [address] [place] [address] Dr. Isi Britton MCH (RBC) [Entitic mass] 31.9 pg Normal 26.7-34.0 [facility] Comment on above: Performed By: #### C BC #### [facility] [address] [place] [address] Dr. Isi Britton MCHC (RBC) [Mass/Vol] 33.7 g/dL Normal 29.9-35.2 [facility] Comment on above: Performed By: #### C BC #### [facility] [address] [place] [address] Dr. Isi Britton MCV (RBC) [Entitic vol] 94.8 fL Normal 81.0-99.0 [facility] Comment on above: Performed By: #### C BC #### [facility] [address] [place] [address] Dr. Isi Britton MONO # 0.6 103/ul Normal 0.3-0.8 [facility] Comment on above: Performed By: #### C BC #### [facility] [address] [place] [address] Dr. Isi Britton Monocytes/100 WBC (Bld) 10.1 % Normal 1.7-12.0 [facility] Comment on above: Performed By: #### C BC #### [facility] [address] [place] [address] Dr. Isi Britton NEUT # 3.9 103/ul Normal 1.4-6.5 [facility] Comment on above: Performed By: #### C BC #### [facility] [address] [place] [address] Dr. Isi Britton Neutrophils/100 WBC (Bld) 62.9 % Normal 43.0-75.0 [facility] Comment on above: Performed By: #### C BC #### [facility] [address] [place] [address] Dr. Isi Britton Platelet mean volume (Bld) [Entitic vol] 10.5 fL Normal 9.5-13.5 [facility] Comment on above: Performed By: #### C BC #### [facility] [address] [place] [address] Dr. Isi Britton PLT 220 103/ul Normal 150-450 [facility] Comment on above: Performed By: #### C BC #### [facility] [address] [place] [address] Dr. Isi Britton RBC 4.23 106/ul Normal 4.20-5.40 [facility] Comment on above: Performed By: #### C BC #### [facility] [address] [place] [address] Dr. Isi Britton WBC 6.2 103/ul Normal 4.0-11.0 [facility] Comment on above: Performed By: #### C BC #### [facility] [address] [place] [address] Dr. Isi Britton FREE T3on 11-12-2022 FREE T3 2.21 pg/mlL Normal 2.18-3.98 [facility] Comment on above: Performed By: #### L IPID, CMP, T7, FT3, TSH #### [facility] [address] [place] [address] Dr. Isi Britton FREE T4on 11-12-2022 Free T4 [Mass/Vol] 1.04 ng/dL Normal 0.76-1.46 [facility] Comment on above: Performed By: #### I RONI, FT4 ####[facility] [id number] [address]Dr. Isi Britton FREE THYROXINE INDEX T7on FTI 3.38 Normal 1.30-4.50 [facility] Comment on above: Performed By: #### L IPID, CMP, T7, FT3, TSH #### [facility] [address] [address] [address] Isi Britton T3U 36.0 % Normal 30.0-39.0 [facility] Comment on above: Performed By: #### L IPID, CMP, T7, FT3, TSH #### [facility] [address] [address] [address] Isi Britton T4 [Mass/Vol] 9.40 ug/dL Normal 4.80-13.90 [facility] Comment on above: Performed By: #### L IPID, CMP, T7, FT3, TSH #### [facility] [address] [address] [address] Isi Britton GLYCOHEMOGLOBIN A1Con 2022 ADA RECOMMENDATION SEE BELOW Normal [facility] Comment on above: Result Comment: ADA RECOMMENDED LIMIT 4.0 - 6.0 ADA THERAPEUTIC TARGET < 7.0 ACTION SUGGESTED > 7.0 Performed By: #### A 1C #### [facility] [address] [address] [address] Isi Britton Glucose [Mass/Vol] 111 mg/dL Normal [facility] Comment on above: Performed By: #### A 1C #### [facility] [address] [address] [address] Isi Britton HbA1c (Bld) [Mass fraction] 5.5 % Normal 4.5-6.2 [facility] Comment on above: Performed By: #### A 1C #### [facility] [address] [address] [address] Isi Britton IRONon 11-12-2022 Iron [Mass/Vol] 71.0 ug/dL Normal 50.0-170.0 [facility] Comment on above: Performed By: #### I RONI, FT4 #### [facility] [address] [address] [address] Isi rBitton LIPID PROFILEon 11-12-2022 CHOL-HDL RATIO NORM SEE BELOW Normal [facility] Comment on above: Result Comment: 3.3 - 4.4 LOW RISK 4.4 - 7.1 AVERAGE RISK 7.1 - 11.0 MODERATE RISK >11.0 HIGH RISK Performed By: #### L IPID, CMP, T7, FT3, TSH #### [facility] [address] [address] [address] Isi Britton Cholesterol [Mass/Vol] 139 mg/dL Normal <=200 [facility] Comment on above: Performed By: #### L IPID, CMP, T7, FT3, TSH #### [facility] [address] [address] [address] Isi Britton Cholesterol in HDL [Mass/Vol] 70 mg/dL Critically high 40-60 [facility] Comment on above: Performed By: #### L IPID, CMP, T7, FT3, TSH #### [facility] [address] [address] [address] Isi Britton Cholesterol in LDL [Mass/Vol] 49.4 mg/dL Normal [facility] Comment on above: Performed By: #### L IPID, CMP, T7, FT3, TSH #### [facility] [address] [address] [address] Isi Britton Cholesterol.total/C holesterol in HDL [Mass ratio] 2.0 {ratio} Normal [facility] Comment on above: Performed By: #### L IPID, CMP, T7, FT3, TSH #### [facility] [address] [address] [address] Isi Britton HDL NORMAL > or = 60 mg/dl - LO W CARDIOVASCULAR RISK <40 mg/dl - HIGH CARDIOVASCULAR RISK Normal [facility] Comment on above: Performed By: #### L IPID, CMP, T7, FT3, TSH #### [facility] [address] [address] [address] Isi Britton LDL CALC NORMAL SEE BELOW Normal [facility] Comment on above: Result Comment: <100 mg/dl OPTIMAL 100 - 129 mg/dl NEAR OR ABOVE OPTIMAL 130 - 159 mg/dl BORDERLINE HIGH 160 - 189 mg/dl HIGH >190 mg/dl VERY HIGH Performed By: #### L IPID, CMP, T7, FT3, TSH #### [facility] [address] [address] [address] Isi Britton Triglyceride [Mass/Vol] 98 mg/dL Normal <=150 [facility] Comment on above: Performed By: #### L IPID, CMP, T7, FT3, TSH #### [facility] [address] [address] [address] Isi Britton VLDL CALC 19.6 mg/dL Normal [facility] Comment on above: Performed By: #### L IPID, CMP, T7, FT3, TSH #### [facility] [address] [place] [address] Dr. Isi Britton PROF 14(COMP METB)on 023 Albumin [Mass/Vol] 3.9 g/dL Normal 3.4-5.0 [facility] Comment on above: Performed By: #### L IPID, CMP, T7, FT3, TSH #### [facility] [address] [address] [address] Isi Britton Albumin/Globulin [Mass ratio] 1.2 {ratio} Normal [facility] Comment on above: Performed By: #### L IPID, CMP, T7, FT3, TSH #### [facility] [address] [address] [address] Isi Britton ALP [Catalytic activity/Vol] 99 U/L Normal 46-116 [facility] Comment on above: Performed By: #### L IPID, CMP, T7, FT3, TSH #### [facility] [address] [address] [address] Isi Britton ALT [Catalytic activity/Vol] 26 U/L Normal 14-59 [facility] Comment on above: Performed By: #### L IPID, CMP, T7, FT3, TSH #### [facility] [address] [place] [address] Dr. Isi Britton Anion gap [Moles/Vol] 13.1 mmol/L Normal [facility] Comment on above: Performed By: #### L IPID, CMP, T7, FT3, TSH #### [facility] [address] [place] [address] Dr. Isi Britton AST [Catalytic activity/Vol] 20 U/L Normal 15-37 [facility] Comment on above: Performed By: #### L IPID, CMP, T7, FT3, TSH #### [facility] [address] [place] [address] Dr. Isi Britton Bilirubin [Mass/Vol] 0.9 mg/dL Normal 0.2-1.0 [facility] Comment on above: Performed By: #### L IPID, CMP, T7, FT3, TSH #### [facility] [address] [place] [address] Dr. Isi Britton Calcium [Mass/Vol] 9.4 mg/dL Normal 8.5-10.1 [facility] Comment on above: Performed By: #### L IPID, CMP, T7, FT3, TSH #### [facility] [address] [place] [address] Dr. Isi Britton Chloride [Moles/Vol] 104 mmol/L Normal 98-107 [facility] Comment on above: Performed By: #### L IPID, CMP, T7, FT3, TSH #### [facility] [address] [place] [address] Dr. Isi Britton CO2 [Moles/Vol] 29.2 mmol/L Normal 21.0-32.0 [facility] Comment on above: Performed By: #### L IPID, CMP, T7, FT3, TSH #### [facility] [address] [place] [address] Dr. Isi Britton Creatinine [Mass/Vol] 1.36 mg/dL Critically high 0.55-1.02 [facility] Comment on above: Performed By: #### L IPID, CMP, T7, FT3, TSH #### [facility] [address] [place] [address] Dr. Isi Britton EGFR-AF AUSTRIAN 46 mL/min/1.73m2 Critically low >=60 [facility] Comment on above: Performed By: #### L IPID, CMP, T7, FT3, TSH #### [facility] [address] [place] [address] Dr. Isi Britton EGFR-NON AF AUSTRIAN 38 mL/min/1.73m2 Critically low >=60 [facility] Comment on above: Performed By: #### L IPID, CMP, T7, FT3, TSH #### [facility] [address] [place] [address] Dr. Isi Britton Globulin (S) [Mass/Vol] 3.3 g/dL Normal [facility] Comment on above: Performed By: #### L IPID, CMP, T7, FT3, TSH #### [facility] [address] [place] [address] Dr. Isi Britton Glucose [Mass/Vol] 107 mg/dL Critically high 74-106 [facility] Comment on above: Performed By: #### L IPID, CMP, T7, FT3, TSH #### [facility] [address] [place] [address] Dr. Isi Britton Potassium [Moles/Vol] 4.3 mmol/L Normal 3.5-5.1 [facility] Comment on above: Performed By: #### L IPID, CMP, T7, FT3, TSH #### [facility] [address] [place] [address] Dr. Isi Britton Protein [Mass/Vol] 7.2 g/dL Normal 6.4-8.2 [facility] Comment on above: Performed By: #### L IPID, CMP, T7, FT3, TSH #### [facility] [address] [place] [address] Dr. Isi Britton Sodium [Moles/Vol] 142 mmol/L Normal 136-145 [facility] Comment on above: Performed By: #### L IPID, CMP, T7, FT3, TSH #### [facility] [address] [address] [address] Isi Britton Urea nitrogen [Mass/Vol] 24.0 mg/dL Critically high 7.0-18.0 [facility] Comment on above: Performed By: #### L IPID, CMP, T7, FT3, TSH #### [facility] [address] [address] [address] Isi Britton Urea nitrogen/Creatinine [Mass ratio] 17.6 mg/mg Normal [facility] Comment on above: Performed By: #### L IPID, CMP, T7, FT3, TSH #### [facility] [address] [address] [address] Isi Britton TSHon 11-12-2022 TSH 1.802 uIU/mL Normal 0.358-3.740 [facility] Comment on above: Performed By: #### L IPID, CMP, T7, FT3, TSH #### [facility] [address] [address] [address] Isi Britton Covid-19 PCR (CVDTB)on 09-11 SARS-CoV-2 (COVID-19) RNA ERICK+probe Ql (Unsp spec) Not detected Normal NOT DETECTED [facility] Comment on above: Result Comment: This test is not yet approved or cleared by the [place] FDA. When there are no FDA-approved or cleared tests available, and other criteria are met, FDA can make tests available under an emergency access mechanism called an Emergency Use Authorization (EUA). The EUA for this test is supported by the [place] of Health and Human Service's (HHS's) declaration [...] consistent with SARS-CoV-2. Performed By: #### C [facility] ####[facility] [address] [place], [place] [address]Wb. Isi Britton ECHOCARDIO M/2D COMPLETEon 1 09-09-2021 ECHOCARDIO M/2D COMPLETE Patient: SON HUBBARD Exam Date: 07/10/2022 : 1945 Gender:F Ordering : DR CLINTON DORAN M.D. Admission #: [id number] Family : DR PAT NEWELL . Order #: [id number] CLICK HERE TO VIEW EXAM ECHOCARDIOGRAM REPORT [...] Rebeka Johnson M.D. on 07/10/2022 at 15:37 [facility] ANES POSTPROC EVALon 10-05-2 022 ANES POSTPROC EVAL HNO ID: [id number] Author: Abner Cox II, DO Service: Anesthesiology Author Type: Anesthesiologist Type: Anesthesia Postprocedure Evaluation Filed: 05/15/2022 11:10 AM Note Text: POST ANESTHESIA EVALUATION NOTE : 1945 Procedure Summary Date: 05/15/22 Room / Location: [address] Anesthesia Start: 928 Anesthesia Stop: 949 [...] May 15, 2022 TIME: 11:10 AM CSN: [id number] Normal [facility] ANES PRE-OPon 05-15-2022 ANES PRE-OP HNO ID: [id number] Author: Abner Cox II, DO Service: Anesthesiology Author Type: Anesthesiologist Type: Anesthesia Preprocedure Evaluation Filed: 05/15/2022 8:52 AM Note Text: ANESTHESIOLOGY DAY OF SURGERY NOTE : 1945 Procedure Information Date/Time: 05/15/2230 Procedures: PHACOEMULSIFICATION CATARACT IMPLANT INTRAOCULAR LENS W/O ENDOSCOPIC CYCLOPHOTOCOAGULATION (Right: Eye) OPHTHALMIC BIOMETRY BY PARTIAL COHERENCE INTERFEROMETRY W/INTRAOCULAR LENS POWER CALCULATION (Right: Eye) Location: [address] Surgeons: Mylene Almeida V, MD Estimated [...] and consent discussed: yes. Patient / Responsible Alliance Party agrees to proceed: yes Patient / Surrogate [...] May 15, 2022 TIME: 8:51 AM CSN: [id number] Normal [facility] OPERATIVE NOon 05-15-2022 OPERATIVE NO HNO ID: [id number] Author: Mylene Almeida V, MD Service: Ophthalmology Author Type: Physician Type: Operative Report Filed: 05/15/2022 9:46 AM Note Text: OPERATIVE REPORT DATE OF SERVICE: May 15, 2022 PRIMARY SURGEON: Mylene Almeida M.D. MOLD PULLER: None Procedure(s) (LRB): PHACOEMULSIFICATION CATARACT IMPLANT INTRAOCULAR [...] corneal incision was created temporally with a [place] blade then a 2.4 mm keratome. The anterior chamber was reformed with Viscoat, after which the anterior capsule was opened centrally. Using the Utrata forceps a continuous curvilinear capsulorrhexis of approximately 5.5 mm round was created. Gentle hydrodissection was accomplished using preservative-free lidocaine on a 27-gauge cannula. Using the Shravan phacoemulsification unit with the SP3Hman curved tip, the anterior chamber was entered [...] Implant Name Type Inv. Item Serial No. Reconciliation Specialist Lot No. LRB No. Used Action Model No. LENS IOL 0D +18 TALAT UV ABS - [id number] Intraocular Lens LENS IOL 0D +18 TALAT UV ABS [id number] [employer] Right 1 Implanted [id number] [...] 9:44 AM - [facility] Dr Wilson[facility] Mylene ALMEIDA MD [facility] ANES POSTPROC EVALon 022 ANES POSTPROC EVAL HNO ID: [id number] Author: Cristian Parker MD Service: Anesthesiology Author Type: Anesthesiologist Type: Anesthesia Postprocedure Evaluation Filed: 05/01/2022 11:15 AM Note Text: POST ANESTHESIA EVALUATION NOTE : 1945 Procedure Summary Date: 05/01/22 Room / Location: [address] Anesthesia Start: 4 Anesthesia Stop: 1103 Procedures: PHACOEMULSIFICATION CATARACT IMPLANT INTRAOCULAR LENS W/O [...] May 01, 2022 TIME: 11:14 AM CSN: [id number] Normal [facility] ANES PRE-OPon 05-01-2022 ANES PRE-OP HNO ID: [id number] Author: Cristian Parker MD Service: Anesthesiology Author Type: Anesthesiologist Type: Anesthesia Preprocedure Evaluation Filed: 05/01/2022 10:04 AM Note Text: ANESTHESIOLOGY DAY OF SURGERY NOTE : 1945 Procedure Information Date/Time: 05/01/22 1030 Procedures: PHACOEMULSIFICATION CATARACT IMPLANT INTRAOCULAR LENS W/O ENDOSCOPIC CYCLOPHOTOCOAGULATION (Left: Eye) OPHTHALMIC BIOMETRY BY PARTIAL COHERENCE INTERFEROMETRY W/INTRAOCULAR LENS POWER CALCULATION (Left: Eye) Location: [address] Surgeons: Mylene Almeida V, MD Estimated [...] and consent discussed: yes. Patient / Responsible Alliance Party agrees to proceed: yes Patient / Surrogate [...] 0947 Pulse 75 05/01/22 0947 Resp 16 05/01/22 0947 Temp 36.6 ?C (97.8 ?F) 05/01/22 0947 SpO2 99 % 05/01/22 0947 Facility-Administered Medications as of 05/01/2022 Medication Dose [...] May 01, 2022 TIME: 10:03 AM CSN: [id number] Normal [facility] NURSING PROGon 05-01-2022 NURSING PROG HNO ID: [id number] Author: Deepika Stephen RN Service: ? Author [...] Deepika Stephen RN In Department: AMBULATORY SURGERY Normal [facility] OPERATIVE NOon 05-01-2022 OPERATIVE NO HNO ID: [id number] Author: Mylene Almeida V, MD Service: Ophthalmology Author Type: Physician Type: Operative Report Filed: 05/01/2022 11:01 AM Note Text: OPERATIVE REPORT DATE OF SERVICE: May 01, 2022 PRIMARY SURGEON: Mylene Almeida M.D. MOLD PULLER: Arabella Procedure(s) (LRB): PHACOEMULSIFICATION CATARACT IMPLANT INTRAOCULAR LENS [...] corneal incision was created temporally with a [place] blade then a 2.4 mm keratome. The anterior chamber was reformed with Viscoat, after which the anterior capsule was opened centrally. Using the Utrata forceps a continuous curvilinear capsulorrhexis of approximately 5.5 mm round was created. Gentle hydrodissection was accomplished using preservative-free lidocaine on a 27-gauge cannula. Using the Shravan phacoemulsification unit with the SP3Hman curved tip, the anterior chamber was entered [...] Implant Name Type Inv. Item Serial No. Reconciliation Specialist Lot No. LRB No. Used Action Model No. LENS IOL 0D +19.5 TALAT UV ABS - [id number] Intraocular Lens LENS IOL 0D +19.5 TALAT UV ABS [id number] [employer] Left 1 Implanted [id number] [...] 10:59 AM - Com[facility] with Dr Wilson[facility] Mylene ALMEIDA MD [facility] HISTORY PHYSICALon 2 HISTORY PHYSICAL HNO ID: [id number] Author: Chantal Can APRN.HCRISTINA Service: ? Author Type: Nurse Practitioner Type: [...] fevers. Neuro: No history of TIA's, stroke, RESP THERAPIST tumor, impaired sensorium, hemiplegia, paraplegia or quadraplegia. No neurological symptoms or problems. Respiratory: No history of current cough or dyspnea, or pneumonia in the past 6 weeks. No history of respiratory/pulmonary symptoms or problems. 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 Normal [facility] Covid-19 PCR (CVDTB)on 03-12 SARS-CoV-2 (COVID-19) RNA ERICK+probe Ql (Unsp spec) Not detected Normal NOT DETECTED [facility] Comment on above: Result Comment: This test is not yet approved or cleared by the [place] FDA. When there are no FDA-approved or cleared tests available, and other criteria are met, FDA can make tests available under an emergency access mechanism called an Emergency Use Authorization (EUA). The EUA for this test is supported by the [place] of Health and Human Service's (HHS's) declaration [...] consistent with SARS-CoV-2. Performed By: #### [facility] #### [facility] [address] [place] [address] Dr. Isi [place] 01-11-2022 CHRISTINAN Telephone (OPHTLN) SON HUBBARD ([id number]) 1945 F Date Time Provider Department 01/11/22 MYLENE ALMEIDA During your visit today, we recorded the following information about you: Hernan Vences 01/11/2022 11:37 AM Signed LVM for patient to schedule at Cataract Evaluation with Dr. Almeida in [place] per faxed referral from Dr. Wilson. First [...] with Dr. Almeida for March 07 in [place] Allergies As of Date: 01/11/2022 Noted Allergy [...] Status:Closed by HERNAN VENCES on 01/16/22 [facility] REACTIVE PROTEINon 021 CRP [Mass/Vol] 5.1 mg/L Normal 0.0-7.0 [facility] Comment on above: Performed By: #### 6 1405 #### [place] [address] [address] CERVICAL SPINE 2 OR 3 VWSon 03-12-2021 CERVICAL SPINE 2 OR 3 [facility] Department of Radiology [address] [place] [address] ===== Patient Name: SON HUBBARD : 1945 Sex: F Age: Race: White Pt. Location: [facility] Patient Status: D Ordered Date: 03/12/2021 4:00:00 PM Completed Date: 03/12/2021 04:25 PM Requesting Provider: REZA HARVEY Attending Provider: REZA HARVEY Report Copy To: Signs & Symptoms: M54.2 Cervicalgia I10 History: Radhika Comments: Exam: CERVICAL SPINE 2 OR 3 [facility] ===== CERVICAL SPINE 2 OR 3 [facility] 03/12/2021 4:25 PM CLINICAL INDICATIONS: M54.2 [...] curvature. Electronically signed: Rosendo Salvador. Transcribed by: [email or web address], User Resident: Electronically Signed by: ROSENDO SALVADOR @ 03/13/2021 08:58 AM Normal [facility] LUMBAR SPINE 2 OR 3 [facility] LUMBAR SPINE 2 OR 3 S [facility] Department of Radiology [address] [place] [address] ===== Patient Name: SON HUBBARD : 1945 Sex: F Age: Race: White Pt. Location: [facility] Patient Status: D Ordered Date: 03/12/2021 4:00:00 PM Completed Date: 03/12/2021 04:25 PM Requesting Provider: REZA HARVEY Attending Provider: REZA HARVEY Report Copy To: Signs & Symptoms: M54.5 Low back pain I10 History: Radhika Comments: Exam: LUMBAR SPINE 2 OR 3 [facility] ===== LUMBAR SPINE 2 OR 3 [facility] 03/12/2021 4:25 PM CLINICAL INDICATIONS: M54.5 [...] levels. Electronically signed: Rosendo Salvador. Transcribed by: [email or web address], User Resident: Electronically Signed by: ROSENDO SALVADOR @ 03/13/2021 10:49 AM Normal [facility] S-I JOINTS MIN 4 [facility] 03-12 S-I JOINTS MIN 4 VWS [facility] Department of Radiology [address] [place] [id number] ===== Patient Name: SON HUBBARD : 1945 Sex: F Age: Race: White Pt. Location: [facility] Patient Status: D Ordered Date: 03/12/2021 4:00:00 PM Completed Date: 03/12/2021 04:25 PM Requesting Provider: REZA HARVEY Attending Provider: REZA HARVEY Report Copy To: Signs & Symptoms: M54.5 Low back pain I10 History: [place] Comments: Exam: S-I JOINTS MIN 4 VWS [...] report. Electronically signed: Brisa Jackson. Transcribed by: [email or web address], User Resident: HARRISON HUNTER Electronically Signed by: BRISA JACKSON @ 03/13/2021 10:46 AM I personally read this/these film(s) with this resident Normal [facility] SEDIMENTATION RATEon 03-12- 021 SED RATE 37 mm/hr High 0-20 [facility] Comment on above: Performed By: #### 5 6506 #### [place] [address], [facility] Cardiovascular Lab Reporton 05-12-[address] [facility] Patient Name: Son Hubbard [facility] MR #: [id number] Physician: Clinton Linares M.D. Medicine Service Date: 05/11/2020 Division of Birthdate: 1945 Cardiology Room #: Adult Cardiovascular Services [place] [address] Cardiovascular Laboratory Report INDICATION: The patient is a 75-year-old woman, who recently was evaluated in Cardiology Clinic because of a class 3 heart failure symptoms. She was evaluated by initially an echocardiography, then a transesophageal echocardiogram that showed qwap-kf-rmgnyeag mitral regurgitation and mild aortic valve regurgitation. [...] signed informed consent. She was brought to manager cath lab in a fasting state. Modified Dom's test was favorable on the left. Access in the left radial artery was obtained using micropuncture technique. A 6-Gambian x 11 cm Hydrophilic sheath was advanced. [...] coronary artery. This was exchanged to a 6-Gambian AR2 guiding catheter followed by a 6-Gambian AL1 guiding catheter, which was able to [...] atmospheres and post dilated using NC Quantum Cobden 3.0 x 15 mm noncompliant balloon inflated [...] P/Clinton Doran M.D. Date Trans: 05/12/2020 06:46 Tommy/cale [id number] cc: Pat Newell M.D. [address], [facility] [address] Normal [facility] BNP (B-TYPE NATRIURETIC PEPT EFE)on 04-05-2020 Natriuretic peptide B (Bld) [Mass/Vol] 26 pg/mL Normal 0-100 [facility] Comment on above: Order Comment: No: D o not add to previous draw Result Comment: Give n the appropriate clinical setting a BNP result of >100 pg/mL indicates congestive heart failure. Performed By: #### 8 5123 #### [facility] [address] [facility] [place] [address], [facility] CBC COMPLETE BLOOD COUNTon 0 04-05-2020 Erythrocyte distribution width (RBC) [Ratio] 13.1 % Normal 11.5-15.0 [facility] Comment on above: Order Comment: No: D o not add to previous draw Performed By: #### 5 0608 #### [facility] [address] [place], [address] Hematocrit (Bld) [Volume fraction] 42.1 % Normal 36.0-45.0 [facility] Comment on above: Order Comment: No: D o not add to previous draw Performed By: #### 5 0608 #### [facility] [address] [place] [address], [facility] Hemoglobin (Bld) [Mass/Vol] 14.3 g/dL Normal 12.0-15.0 [facility] Comment on above: Order Comment: No: D o not add to previous draw Performed By: #### 5 0608 #### [facility] [address] [place] [address], [facility] MCH (RBC) [Entitic mass] 31.0 pg Normal 27.0-33.0 [facility] Comment on above: Order Comment: No: D o not add to previous draw Performed By: #### 5 0608 #### [facility] [address] MCHC (RBC) [Mass/Vol] 34.0 g/dL Normal 32.0-35.0 [facility] Comment on above: Order Comment: No: D o not add to previous draw Performed By: #### 5 0608 #### [facility] [address] [place] [address], [facility] MCV (RBC) [Entitic vol] 91.3 fL Normal 82.0-98.0 [facility] Comment on above: Order Comment: No: D o not add to previous draw Performed By: #### 5 0608 #### [facility] [address] [place] [address], [facility] Nucleated RBC/100 WBC (Bld) [Ratio] 0 % Normal 0-0 [facility] Comment on above: Order Comment: No: D o not add to previous draw Performed By: #### 5 0608 #### [facility] [address] [place] [address], [facility] PLAT CNT 249 10*3/uL Normal 150-[address] [facility] Comment on above: Order Comment: No: D o not add to previous draw Performed By: #### 5 0608 #### [facility] [address] [place] [address], [facility] RBC (Bld) [#/Vol] 4.61 10*6/uL Normal 3.80-5.00 [facility] Comment on above: Order Comment: No: D o not add to previous draw Performed By: #### 5 0608 #### [facility] [address] [place] [address], [facility] WBC (Bld) [#/Vol] 6.32 10*3/uL Normal 4.00-10.60 [facility] Comment on above: Order Comment: No: D o not add to previous draw Performed By: #### 5 0608 #### [facility] [address] [facility] [address] Erythrocyte distribution width (RBC) [Ratio] 13.0 % Normal 11.5-15.0 [facility] Comment on above: Order Comment: No: D o not add to previous draw Performed By: #### 5 0608 #### [facility] [address] [place] [address], [facility] Hematocrit (Bld) [Volume fraction] 40.2 % Normal 36.0-45.0 [facility] Comment on above: Order Comment: No: D o not add to previous draw Performed By: #### 5 0608 #### [facility] [address] [place] [id number], [facility] Hemoglobin (Bld) [Mass/Vol] 13.7 g/dL Normal 12.0-15.0 [facility] Comment on above: Order Comment: No: D o not add to previous draw Performed By: #### 5 0608 #### [facility] [address] [place] [address], [facility] MCH (RBC) [Entitic mass] 31.4 pg Normal 27.0-33.0 [facility] Comment on above: Order Comment: No: D o not add to previous draw Performed By: #### 5 0608 #### [facility] [address] [place] [id number], [facility] MCHC (RBC) [Mass/Vol] 34.1 g/dL Normal 32.0-35.0 [facility] Comment on above: Order Comment: No: D o not add to previous draw Performed By: #### 5 0608 #### [facility] [address] [place] [address], [facility] MCV (RBC) [Entitic vol] 92.0 fL Normal 82.0-98.0 [facility] Comment on above: Order Comment: No: D o not add to previous draw Performed By: #### 5 0608 #### [facility] [address] [place] [address], [facility] Nucleated RBC/100 WBC (Bld) [Ratio] 0 % Normal 0-0 [facility] Comment on above: Order Comment: No: D o not add to previous draw Performed By: #### 5 0608 #### [facility] [address] [place] [id number], [place] PLAT CNT 209 10*3/uL Normal 150-[address] [facility] Comment on above: Order Comment: No: D o not add to previous draw Performed By: #### 5 0608 #### [facility] [address] [place] [address], [facility] RBC (Bld) [#/Vol] 4.37 10*6/uL Normal 3.80-5.00 [facility] Comment on above: Order Comment: No: D o not add to previous draw Performed By: #### 5 0608 #### [facility] [address] [place] [id number], [facility] WBC (Bld) [#/Vol] 5.97 10*3/uL Normal 4.00-10.60 [facility] Comment on above: Order Comment: No: D o not add to previous draw Performed By: #### 5 0608 #### [facility] [address] [facility]. [address] TROPONIN-Ion 04-05-2020 Troponin I.cardiac [Mass/Vol] 0.07 ng/mL High 0.00-0.04 [facility] Comment on above: Order Comment: This order is a replacement of the rejected order with accession number [id number]. Result Comment: REFE RENCE RANGES: 0.00 - 0.04 ng/ml NORMAL 0.05 - 0.50 ng/ml INDETERMINATE > 0.50 ng/ml CONSISTENT WITH AN M.I. Performed By: #### 3 5200 #### [facility] [address] [facility]. [address] Cardiovascular Lab Reporton 04-04-[address] [facility] Patient Name: Son Hubbard [facility] S MR #: [id number] Department of Physician: Clinton Doran M.D. Division of Service Date: 04/04/2020 Cardiology Birthdate: 1945 Adult Cardiovascular Room #: [facility] [address] [facility]. [place] [address] Cardiovascular Laboratory Report INDICATION: Son Hubbard is a 75-year-old woman, who was recently evaluated in Cardiology Clinic after a recent admission to the [facility] with acute onset shortness of breath and finding on echocardiogram of possible severe mitral regurgitation. She continued to be symptomatic and was referred for further investigation of her recent onset symptoms by a transesophageal echocardiography that showed evidence of uaup-fi-hlemikif mitral regurgitation. She was then referred for [...] informed consent. She was brought to the manager cath lab in a fasting state. The right neck area was prepped and draped in the usual fashion. Using micropuncture technique and ultrasound guidance, the right internal jugular vein was accessed. A 6-Gambian x 11 cm sheath was placed. A 6-Gambian Mendez catheter was used for right catheterization with measurement of pressures and calculation of cardiac output using the estimated Elizabeth method. Mendez catheter was removed. Modified Dom's test was favorable on the right. Access in the right radial artery was obtained using micropuncture technique. A 6-Gambian x 11 cm Hydrophilic sheath was advanced. Verapamil was given through the sheath and heparin was administered intravenously. Bilateral selective coronary angiography was then performed using 5-Gambian JR5 and 5-Gambian multipurpose catheters for engagement of the right coronary artery and a 5-Gambian JL3.5 diagnostic catheter for engagement of the left coronary artery. Catheters were removed. Additional heparin was given as needed and therapeutic ACT confirmed during the rest of the procedure. A 6-Gambian XB3.0 guiding catheter was advanced and used [...] atmospheres and post dilated using NC Quantum Cobden 3.25 x 12 mm noncompliant balloon inflated [...] 2- (more content not included)... Normal [facility] *SARS-CoV-2 COVID-19on 03-31 SARS-CoV-2 (COVID-19) RNA ERICK+probe Ql (Unsp spec) Not detected Normal Not Detected [facility] Comment on above: Order Comment: The A ptima SARS-CoV-2 assay is a nucleic acid amplification test intended for the qualitative detection of RNA from SARS-CoV-2 isolated and purified from nasopharyngeal (BILLING SERVICES MANAGER),oropharyngeal (OP), nasal swab, sputum, and bronchoalveolar lavage (BAL) specimens from patients with signs and symptoms of infection who are suspected of COVID-19. Results are for the identification of SARS-CoV-2 RNA. The SARS-CoV-2 RNA is generally detectable during the acute phase of infection. The Aptima SARS-CoV-2 Assay on the Rent[employer] and Rentify Fusion system is intended for use by laboratory personnel specifically instructed and trained in the operation of the [place] and [employer] Fusion system. The Aptima SARS-CoV-2 assay is [...] information. Performed By: #### 3 1792 #### [facility] [address] [place] [address], [facility] CONSULTATIONon 03-02-2019 [address] [place] [address] [place] [address] CONSULTATION PATIENT NAME: SON HUBBARD : 1945 MED REC NO: [id number] ROOM: [facility] ACCOUNT NO: [id number] ADMIT DATE: 02/24/2019 PROVIDER: Francis Holguin MD [...] and S2 are normal. No murmurs appreciated. RESP THERAPIST EXAMINATION: Pupils are equal and reactive. Eye [...] the patient. FRANCIS HOLGUIN MD [id number] Doc#: [id number] CC: Normal [facility] Homocysteineon 03-02-2019 Homocysteine 14.5 umol/L Normal 0.0-15.0 [facility] Comment on above: Performed By: #### P T #### [facility] [address] [place] [address] TSH w/out Reflexon 201 9 TSH Qn 3.890 uIU/mL Critically high 0.440-3.86 [facility] Comment on above: Performed By: #### P T #### [facility] [address] [place] [address] Vitamin B12 and Folateon Cobalamin (Vitamin B12) [Mass/Vol] 537 pg/mL Normal 232-1245 [facility] Comment on above: Performed By: #### P T #### [facility] [address] [place] [address] Folate 11.6 ng/mL Normal 7.3-26.1 [facility] Comment on above: Result Comment: As o f 16, the methodology has changed. Results from this methodology should not be compared with results from previous methodology. Performed By: #### P T #### [facility] [address] [place] [address] Urinalysis, reflex to cultur erik 02-28-2019 Bilirubin Ql (U) Negative Normal Negative [facility] Comment on above: Performed By: #### B MP #### [facility] [address] [place] [address] Clarity (U) Clear Normal Clear [facility] Comment on above: Performed By: #### B MP #### [facility] [address] [place] [address] Color (U) Yellow Normal Straw/[place] [facility] Comment on above: Performed By: #### B MP #### [facility] [address] [place] [address] Glucose Ql (U) Negative Normal Negative [facility] Comment on above: Performed By: #### B MP #### [facility] [address] [place] [address] Hemoglobin Ql (U) Negative Normal Negative [facility] Comment on above: Performed By: #### B MP #### [facility] [address] [place] [address] Ketones Ql (U) Negative Normal Negative [facility] Comment on above: Performed By: #### B MP #### [facility] [address] [place] [address] Leukocyte esterase Test strip Ql (U) Negative Normal Negative [facility] Comment on above: Performed By: #### B MP #### [facility] [address] [place] [address] Nitrite Ql (U) Negative Normal Negative [facility] Comment on above: Performed By: #### B MP #### [facility] [address] [place] [address] pH (U) 7.0 [pH] Normal 5.0-9.0 [facility] Comment on above: Performed By: #### B MP #### [facility] [address] [place] [address] Protein Ql (U) Negative Normal Negative [facility] Comment on above: Performed By: #### B MP #### [facility] [address] [place] [address] Specific gravity (U) [Rel density] 1.007 Normal 1.005-1.03 [facility] Comment on above: Performed By: #### B MP #### [facility] [address] [place] [address] Urine Reflexed to Culture Not Indicated Normal [facility] Comment on above: Performed By: #### B MP #### [facility] [address] [place] [address] Urobilinogen Qn (U) 0.2 {Tyrel'U}/dL Normal < 2.0 [facility] Comment on above: Performed By: #### B MP #### [facility] [address] [place] [address] CBC With Platelet No Differe ntialon 02-25-2019 Erythrocyte distribution width (RBC) [Ratio] 13.5 % Normal 11.5-14.5 [facility] Comment on above: Performed By: #### B MP #### [facility] [address] [place] [address] Hematocrit (Bld) [Volume fraction] 33.3 % Low 37.0-47.0 [facility] Comment on above: Performed By: #### B MP #### [facility] [address] [place] [address] Hemoglobin (Bld) [Mass/Vol] 11.7 g/dL Low 12.0-16.0 [facility] Comment on above: Performed By: #### B MP #### [facility] [address] [place] [address] MCH (RBC) [Entitic mass] 33.0 pg Critically high 27.0-31.3 [facility] Comment on above: Performed By: #### B MP #### [facility] [address] [place] [address] MCHC (RBC) [Mass/Vol] 35.1 % Normal 33.0-37.0 [facility] Comment on above: Performed By: #### B MP #### [facility] [address] [place] [address] MCV (RBC) [Entitic vol] 94.1 fL Normal 82.0-100.0 [facility] Comment on above: Performed By: #### B MP #### [facility] [address] [place] [address] Platelets (Bld) [#/Vol] 180 10*3/uL Normal 130-400 [facility] Comment on above: Performed By: #### B MP #### [facility] [address] [place] [address] RBC (Bld) [#/Vol] 3.54 10*6/uL Low 4.20-5.40 [facility] Comment on above: Performed By: #### B MP #### [facility] [address] [place] [address] WBC (Bld) [#/Vol] 12.1 10*3/uL Critically high 4.8-10.8 [facility] Comment on above: Performed By: #### B MP #### [facility] [address] [place] [address] Basic Metabolic Panel Reflex Mgon 02-24-2019 Anion gap [Moles/Vol] 13 mmol/L Normal 9-15 [facility] Comment on above: Performed By: #### B MP #### [facility] [address] [place] [address] Calcium [Mass/Vol] 8.8 mg/dL Normal 8.5-9.9 [facility] Comment on above: Performed By: #### B MP #### [facility] [address] [place] [address] Chloride [Moles/Vol] 100 mmol/L Normal 95-107 [facility] Comment on above: Performed By: #### B MP #### [facility] [address] [place] [address] CO2 [Moles/Vol] 24 mmol/L Normal 20-31 [facility] Comment on above: Performed By: #### B MP #### [facility] [address] [place] [address] Creatinine [Mass/Vol] 0.96 mg/dL Critically high 0.50-0.90 [facility] Comment on above: Performed By: #### B MP #### [facility] [address] [place] [address] GFR/1.73 sq M predicted among blacks MDRD (S/P/Bld) [Vol rate/Area] mL/min/{1.73_m2} Normal >60 [facility] Comment on above: Result Comment: >60 mL/min/1.73m2 EGFR, calc. for ages 18 and older using the MDRD formula (not corrected for weight), is valid for stable renal function. Performed By: #### B MP #### [facility] [address] [place] [address] GFR/1.73 sq M.predicted MDRD (S/P/Bld) [Vol rate/Area] 57.0 mL/min/{1.73_m2} Low >60 [facility] Comment on above: Result Comment: >60 mL/min/1.73m2 EGFR, calc. for ages 18 and older using the MDRD formula (not corrected for weight), is valid for stable renal function. Performed By: #### B MP #### [facility] [address] [place] [address] Glucose [Mass/Vol] 146 mg/dL Critically high 70-99 M [facility] Comment on above: Performed By: #### B MP #### [facility] [address] [place] [address] Potassium reflex Mg 5.4 mEq/L Critically high 3.4-4.9 [facility] Comment on above: Performed By: #### B MP #### [facility] [address] [place] [address] Sodium [Moles/Vol] 137 mmol/L Normal 135-144 [facility] Comment on above: Performed By: #### B MP #### [facility] [address] [place] [address] Urea nitrogen [Mass/Vol] 18 mg/dL Normal 8-23 [facility] Comment on above: Performed By: #### B MP #### [facility] [address] [place] [address] CBC With Platelet and Differ entialon 02-24-2019 Basophils (Bld) [#/Vol] 0.0 10*3/uL Normal 0.0-0.2 [facility] Comment on above: Performed By: #### C BCWD #### [facility] [address] [place] [address] Basophils/100 WBC (Bld) 0.1 % Normal [facility] Comment on above: Performed By: #### C BCWD #### [facility] [address] [place] [address] Eosinophils (Bld) [#/Vol] 0.0 10*3/uL Normal 0.0-0.7 [facility] Comment on above: Performed By: #### C BCWD #### [facility] [address] [place] [address] Eosinophils/100 WBC (Bld) 0.0 % Normal [facility] Comment on above: Performed By: #### C BCWD #### [facility] [address] [place] [address] Erythrocyte distribution width (RBC) [Ratio] 13.4 % Normal 11.5-14.5 [facility] Comment on above: Performed By: #### C BCWD #### [facility] [address] [place] [address] Hematocrit (Bld) [Volume fraction] 34.6 % Low 37.0-47.0 [facility] Comment on above: Performed By: #### C BCWD #### [facility] [address] [place] [address] Hemoglobin (Bld) [Mass/Vol] 12.0 g/dL Normal 12.0-16.0 [facility] Comment on above: Performed By: #### C BCWD #### [facility] [address] [place] [address] Lymphocytes (Bld) [#/Vol] 0.9 10*3/uL Low 1.0-4.8 [facility] Comment on above: Performed By: #### C BCWD #### [facility] [address] [place] [address] Lymphocytes/100 WBC (Bld) 6.5 % Normal [facility] Comment on above: Performed By: #### C BCWD #### [facility] [address] [place] [address] MCH (RBC) [Entitic mass] 32.3 pg Critically high 27.0-31.3 [facility] Comment on above: Performed By: #### C BCWD #### [facility] [address] [place] [address] MCHC (RBC) [Mass/Vol] 34.7 % Normal 33.0-37.0 [facility] Comment on above: Performed By: #### C BCWD #### [facility] [address] [place] [address] MCV (RBC) [Entitic vol] 93.2 fL Normal 82.0-100.0 [facility] Comment on above: Performed By: #### C BCWD #### [facility] [address] [place] [address] Monocytes (Bld) [#/Vol] 1.4 10*3/uL Critically high 0.2-0.8 [facility] Comment on above: Performed By: #### C BCWD #### [facility] [address] [place] [address] Monocytes/100 WBC (Bld) 10.2 % Normal [facility] Comment on above: Performed By: #### C BCWD #### [facility] [address] [place] [address] Neutrophils (Bld) [#/Vol] 11.3 10*3/uL Critically high 1.4-6.5 [facility] Comment on above: Performed By: #### C BCWD #### [facility] [address] [place] [address] Neutrophils/100 WBC (Bld) 83.2 % Normal [facility] Comment on above: Performed By: #### C BCWD #### [facility] [address] [place] [address] Platelets (Bld) [#/Vol] 208 10*3/uL Normal 130-400 [facility] Comment on above: Performed By: #### C BCWD #### [facility] [address] [place] [address] RBC (Bld) [#/Vol] 3.71 10*6/uL Low 4.20-5.40 [facility] Comment on above: Performed By: #### C BCWD #### [facility] [address] [place] [address] WBC (Bld) [#/Vol] 13.7 10*3/uL Critically high 4.8-10.8 [facility] Comment on above: Performed By: #### C BCWD #### [facility] [address] [place] [address] Culture, Urineon 02-24-2019 Culture, Urine ORDERED BY: CHRISTIE REED SOURCE: Urine Clean Catch COLLECTED: 02/24/19 17:31 ANTIBIOTICS AT ELISEO.: RECEIVED : 02/24/19 17:31 Culture, Urine FINAL 02/26/19 08:22 No growth 24 hours Normal [facility] Comment on above: Performed By: #### B MP #### [facility] [address] [place] [address] POCT Glucoseon 02-24-2019 Glucose [Mass/Vol] 133 mg/dL Critically high 60-115 M [facility] Comment on above: Performed By: #### B MP #### [facility] [address] [place] [address] POC Performed on ACCU-CHEK Normal [facility] Comment on above: Performed By: #### B MP #### [facility] [address] [place] [address] Urinalysis, reflex to cultur erik 02-24-2019 Bilirubin Ql (U) Negative Normal Negative [facility] Comment on above: Performed By: #### B MP #### [facility] [address] [place] [address] Clarity (U) Clear Normal Clear [facility] Comment on above: Performed By: #### B MP #### [facility] [address] [place] [address] Color (U) Yellow Normal [place]raw/[place] [facility] Comment on above: Performed By: #### B MP #### [facility] [address] [place] [address] Glucose Ql (U) Negative Normal Negative [facility] Comment on above: Performed By: #### B MP #### [facility] [address] [place] [address] Hemoglobin Ql (U) SMALL Abnormal Negative [facility] Comment on above: Performed By: #### B MP #### [facility] [address] [place] [address] Ketones Ql (U) Negative Normal Negative [facility] Comment on above: Performed By: #### B MP #### [facility] [address] [place] [address] Leukocyte esterase Test strip Ql (U) TRACE Abnormal Negative [facility] Comment on above: Performed By: #### B MP #### [facility] [address] [place] [address] Nitrite Ql (U) Negative Normal Negative [facility] Comment on above: Performed By: #### B MP #### [facility] [address] [place] [address] pH (U) 6.0 [pH] Normal 5.0-9.0 [facility] Comment on above: Performed By: #### B MP #### [facility] [address] [place] [address] Protein Ql (U) Negative Normal Negative [facility] Comment on above: Performed By: #### B MP #### [facility] [address] [place] [address] Specific gravity (U) [Rel density] 1.010 Normal 1.005-1.03 [facility] Comment on above: Performed By: #### B MP #### [facility] [address] [place] [address] Urine Reflexed to Culture YES Normal [facility] Comment on above: Performed By: #### B MP #### [facility] [address] [place] [address] Urobilinogen Qn (U) 0.2 {Tyrel'U}/dL Normal < 2.0 [facility] Comment on above: Performed By: #### B MP #### [facility] [address] [place] [address] Urine Microscopicon 02-25-20 19 Bacteria LM.HPF (Urine sed) [#/Area] Negative Normal [facility] Comment on above: Performed By: #### B MP #### [facility] [address] [place] [address] RBC (U) [#/Vol] 0-2 Normal 0-5 [facility] Comment on above: Performed By: #### B MP #### [facility] [address] [place] [address] Urine Epithelial Cells Auto 3-5 Normal 0-5 [facility] Comment on above: Performed By: #### B MP #### [facility] [address] [place] [address] Urine Hyaline Casts Auto 0-1 Normal 0-5 [facility] Comment on above: Performed By: #### B MP #### [facility] [address] [place] [address] Urine WBC Auto 6-10 Abnormal 0-5 [facility] Comment on above: Performed By: #### B MP #### [facility] [address] [place] [address] XR LUMBAR SPINE (2-3 VIEWS)o n 02-24-2019 [...] Ramón Bonds MD 02/24/19 Final result Normal [facility] Basic Metabolic Panel Reflex Mgon 02-23-2019 Anion gap [Moles/Vol] 14 mmol/L Normal 9-15 [facility] Comment on above: Performed By: #### B MPX #### [facility] [address] [place] [address] Calcium [Mass/Vol] 9.1 mg/dL Normal 8.5-9.9 [facility] Comment on above: Performed By: #### B MPX #### [facility] [address] [place] [address] Chloride [Moles/Vol] 106 mmol/L Normal 95-107 [facility] Comment on above: Performed By: #### B MPX #### [facility] [address] [place] [address] CO2 [Moles/Vol] 20 mmol/L Normal 20-31 [facility] Comment on above: Performed By: #### B MPX #### [facility] [address] [place] [address] Creatinine [Mass/Vol] 0.96 mg/dL Critically high 0.50-0.90 [facility] Comment on above: Performed By: #### B MPX #### [facility] [address] [place] [address] GFR/1.73 sq M predicted among blacks MDRD (S/P/Bld) [Vol rate/Area] mL/min/{1.73_m2} Normal >60 [facility] Comment on above: Result Comment: >60 mL/min/1.73m2 EGFR, calc. for ages 18 and older using the MDRD formula (not corrected for weight), is valid for stable renal function. Performed By: #### B MPX #### [facility] [address] [place] [address] GFR/1.73 sq M.predicted MDRD (S/P/Bld) [Vol rate/Area] 57.0 mL/min/{1.73_m2} Low >60 [facility] Comment on above: Result Comment: >60 mL/min/1.73m2 EGFR, calc. for ages 18 and older using the MDRD formula (not corrected for weight), is valid for stable renal function. Performed By: #### B MPX #### [facility] [address] [place] [address] Glucose [Mass/Vol] 139 mg/dL Critically high 70-99 M [facility] Comment on above: Performed By: #### B MPX #### [facility] [address] [place] [address] Potassium reflex Mg 4.6 mEq/L Normal 3.4-4.9 [facility] Comment on above: Performed By: #### B MPX #### [facility] [address] [place] [address] Sodium [Moles/Vol] 140 mmol/L Normal 135-144 [facility] Comment on above: Performed By: #### B MPX #### [facility] [address] [place] [address] Urea nitrogen [Mass/Vol] 20 mg/dL Normal 8-23 [facility] Comment on above: Performed By: #### B MPX #### [facility] [address] [place] [address] CBC With Platelet No Differe ntialon 02-23-2019 Erythrocyte distribution width (RBC) [Ratio] 13.4 % Normal 11.5-14.5 [facility] Comment on above: Performed By: #### C BCND #### [facility] [address] [place] [address] Hematocrit (Bld) [Volume fraction] 38.8 % Normal 37.0-47.0 [facility] Comment on above: Performed By: #### C BCND #### [facility] [address] [place] [address] Hemoglobin (Bld) [Mass/Vol] 13.6 g/dL Normal 12.0-16.0 [facility] Comment on above: Performed By: #### C BCND #### [facility] [address] [place] [address] MCH (RBC) [Entitic mass] 32.2 pg Critically high 27.0-31.3 [facility] Comment on above: Performed By: #### C BCND #### [facility] [address] [place] [address] MCHC (RBC) [Mass/Vol] 35.1 % Normal 33.0-37.0 [facility] Comment on above: Performed By: #### C BCND #### [facility] [address] [place] [address] MCV (RBC) [Entitic vol] 91.6 fL Normal 82.0-100.0 [facility] Comment on above: Performed By: #### C BCND #### [facility] [address] [place] [address] Platelets (Bld) [#/Vol] 212 10*3/uL Normal 130-400 [facility] Comment on above: Performed By: #### C BCND #### [facility] [address] [place] [address] RBC (Bld) [#/Vol] 4.24 10*6/uL Normal 4.20-5.40 [facility] Comment on above: Performed By: #### C BCND #### [facility] [address] [place] [address] WBC (Bld) [#/Vol] 8.3 10*3/uL Normal 4.8-10.8 [facility] Comment on above: Performed By: #### C BCND #### [facility] [address] [place] [address] FLUORO FOR SURGICAL PROCEDUR ESon 02-23-2019 FLUORO [...] Nona Yates MD 02/23/19 Final result Normal [facility] Surgical Specimenon 02-24-20 Surgical Specimen [facility] [address] [place], [place] [id number] FINAL SURGICAL PATHOLOGY REPORT Patient Name: SON HUBBARD Accession No: [id number] Age Sex: 1945 Location: [place] [id number] Account No: [id number] Collected: 02/23/2019 Med Rec No: [id number] Received: 02/24/2019 Attend Phys: FAN RAMIREZ Completed: 02/26/2019 Perform Phys: FAN RAMIREZ FINAL DIAGNOSIS: 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 ALIFA/ALISTEFANIE CLINICAL INFORMATION: Disc herniation, degenerative disease, radiculopathy, spondylolisthesis, facet arthropathy. SPECIMEN: Disc GROSS DESCRIPTION: The specimen received in formalin in a container labeled with the patient's name and designated as spine consists of multiple bony and soft tissue fragments measuring in aggregate 3.5 x 3.0 x 0.5 cm. Sections cash application representative are submitted in three cassettes labeled A1 through A3 after a brief decalcification. ALIFA/SCDAN CPT: 92612 X1 95809 X1 CHIDI LUNA M.D. 02/26/2019 Electronically signed out by Page 1 of 1 [facility] Comment on above: Performed By: #### B MP #### [facility] [address] [place] [address] Basic Metabolic Panelon 02-08 Anion gap [Moles/Vol] 13 mmol/L Normal 9-15 [facility] Comment on above: Performed By: #### B MP #### [facility] [address] [place] [address] Calcium [Mass/Vol] 9.7 mg/dL Normal 8.5-9.9 [facility] Comment on above: Performed By: #### B MP #### [facility] [address] [place] [address] Chloride [Moles/Vol] 105 mmol/L Normal 95-107 [facility] Comment on above: Performed By: #### B MP #### [facility] [address] [place] [address] CO2 [Moles/Vol] 24 mmol/L Normal 20-31 [facility] Comment on above: Performed By: #### B MP #### [facility] [address] [place] [address] Creatinine [Mass/Vol] 1.00 mg/dL Critically high 0.50-0.90 [facility] Comment on above: Performed By: #### B MP #### [facility] [address] [place] [address] GFR/1.73 sq M predicted among blacks MDRD (S/P/Bld) [Vol rate/Area] mL/min/{1.73_m2} Normal >60 [facility] Comment on above: Result Comment: >60 mL/min/1.73m2 EGFR, calc. for ages 18 and older using the MDRD formula (not corrected for weight), is valid for stable renal function. Performed By: #### B MP #### [facility] [address] [place] [address] GFR/1.73 sq M.predicted MDRD (S/P/Bld) [Vol rate/Area] 54.3 mL/min/{1.73_m2} Low >60 [facility] Comment on above: Result Comment: >60 mL/min/1.73m2 EGFR, calc. for ages 18 and older using the MDRD formula (not corrected for weight), is valid for stable renal function. Performed By: #### B MP #### [facility] [address] [place] [address] Glucose [Mass/Vol] 93 mg/dL Normal 70-99 [facility] Comment on above: Performed By: #### B MP #### [facility] [address] [place] [address] Potassium [Moles/Vol] 4.1 mmol/L Normal 3.4-4.9 [facility] Comment on above: Performed By: #### B MP #### [facility] [address] [place] [address] Sodium [Moles/Vol] 142 mmol/L Normal 135-144 [facility] Comment on above: Performed By: #### B MP #### [facility] [address] [place] [address] Urea nitrogen [Mass/Vol] 20 mg/dL Normal 8-23 [facility] Comment on above: Performed By: #### B MP #### [facility] [address] [place] [address] CBC With Platelet No Differe ntialon 02-22-2019 Erythrocyte distribution width (RBC) [Ratio] 13.2 % Normal 11.5-14.5 [facility] Comment on above: Performed By: #### C BCND #### [facility] [address] [place] [address] Hematocrit (Bld) [Volume fraction] 39.9 % Normal 37.0-47.0 [facility] Comment on above: Performed By: #### C BCND #### [facility] [address] [place] [address] Hemoglobin (Bld) [Mass/Vol] 14.1 g/dL Normal 12.0-16.0 [facility] Comment on above: Performed By: #### C BCND #### [facility] [address] [place] [address] MCH (RBC) [Entitic mass] 32.5 pg Critically high 27.0-31.3 [facility] Comment on above: Performed By: #### C BCND #### [facility] [address] [place] [address] MCHC (RBC) [Mass/Vol] 35.3 % Normal 33.0-37.0 [facility] Comment on above: Performed By: #### C BCND #### [facility] [address] [place] [address] MCV (RBC) [Entitic vol] 92.2 fL Normal 82.0-100.0 [facility] Comment on above: Performed By: #### C BCND #### [facility] [address] [place] [address] Platelets (Bld) [#/Vol] 206 10*3/uL Normal 130-400 [facility] Comment on above: Performed By: #### C BCND #### [facility] [address] [place] [address] RBC (Bld) [#/Vol] 4.33 10*6/uL Normal 4.20-5.40 [facility] Comment on above: Performed By: #### C BCND #### [facility] [address] [place] [address] WBC (Bld) [#/Vol] 5.9 10*3/uL Normal 4.8-10.8 [facility] Comment on above: Performed By: #### C BCND #### [facility] [address] [place] [address] Partial Thromboplastin Timeo n 02-22-2019 aPTT Coag (Bld) [Time] 36.9 s Critically high 24.4-36.8 [facility] Comment on above: Result Comment: Effe ctive 02/18/2019: Please note methodology and/or reference ranges have changed. Performed By: #### P TT #### [facility] [address] [place] [address] Prothrombin Timeon 9 INR Coag (PPP) [Relative time] 0.9 {INR} Normal [facility] Comment on above: Result Comment: Warf esther Therapy INR Therapeutic: 2.0-3.0 With Mechanical Valve: >2.5 Low-intensity Therapeutic Range: 1.5-2.0 Mod-intensity Therapeutic Range: 2.0-3.0 High-intensity Therapeutic Range: 2.5-3.5 HIgh-intensity Therapeutic Range: 3.0-4.0 Common Critical/Alarm Value: 5.0 Common Upper Limit Reported: 10.0 Effective 02/18/2019: Please note methodology and/or reference ranges have changed. Performed By: #### P T #### [facility] [address] [place] [address] PT Coag (PPP) [Time] 12.6 s Normal 12.3-14.9 [facility] Comment on above: Result Comment: Effe ctive 02/18/19 Please note methodology and/or reference ranges have changed. Performed By: #### P T #### [facility] [address] [place] [address] Type and Screen Capture 3 sc rn cellon 02-22-2019 Type and Screen Capture 3 scrn cell PATIENT: INEZ Wilson LOC: JONES BILL# : [id number] : 1945 SEX: F ORDERED BY: RISSA Hale ORDERED : 02/22/2019 07:32 COLLECTED: 02/22/2019 09:40 ORDER : [id number] RECEIVED : 02/22/2019 09:40 Confirmation type needs to be drawn. --------- TEST NAME RESULT UNITS RANGES ABN FL ST ABORH Capture O NEG F Antibody 3 Cell Scrn Captu NEG F -------- Normal [facility] Comment on above: Performed By: #### T S3C #### [facility] [address] [place] [address] XR SPINE ENTIRE (2-3 VIEWS)o n 02-22-2019 [...] Hope Rapp MD 02/23/19 Final result Normal [facility] No Panel Information [facility] Encounters Encounter Date Encounter Type Care Provider Facility Start: 09-03-2023 End: 09-03-2023 ambulatory [facility] Start: 08-06-2023 End: 08-07-2023 ambulatory [facility] Start: 07-08-2023 End: 07-09-2023 ambulatory DINORAH MONTES [facility] Start: 06-11-2023 End: 06-11-2023 ambulatory Referral Self Facility:[facility] Start: 06-11-2023 End: 06-11-2023 ambulatory MD Pat Newell Work Phone: [facility] Work Phone: Start: 06-11-2023 End: 06-11-2023 Patient encounter procedure MD Pat Newell Work Phone: [facility] Work Phone: Start: 03-28-2023 End: 03-28-2023 ambulatory [facility] Start: 11-12-2022 End: 11-13-2022 ambulatory MADELYN DICKSON Facility: Start: 10-18-2022 End: 10-18-2022 ambulatory PAT NEWELL Facility:[facility] Start: 10-10-2022 End: 10-10-2022 ambulatory PAT NEWELL Facility:[facility] Start: 10-10-2022 End: 10-10-2022 Patient encounter [...] 06-10-2022 ambulatory MD Pat Newell Work Phone: [facility] Work Phone: Start: 06-10-2022 End: 06-10-2022 Patient encounter procedure MD Pat Newell Work Phone: [facility] Start: 05-15-2022 End: 05-15-2022 ambulatory MYLENE ELLE Facility:[facility] Start: 05-02-2022 End: 05-02-2022 ambulatory [facility] Facility:[facility] Start: 05-02-2022 End: 05-02-2022 Patient encounter procedure Mylene Almeida MD Work Phone: Ophthalmology Comment on above: S/P cataract extract ion and insertion of intraocular lens, left (Primary Dx) Start: 05-01-2022 End: 05-02-2022 ambulatory NAILA CEDILLO Facility:[facility] Start: 05-01-2022 End: 05-01-2022 Patient encounter procedure Naila Cedillo OD Work Phone: Ophthalmology Comment on above: Superficial punctate keratitis of left eye (Primary Dx); Pseudophakia Start: 05-01-2022 End: 05-01-[facility] Start: 04-24-2022 End: 04-24-2022 ambulatory [facility] Facility:[facility] Start: 04-24-2022 Encounter for other preprocedural examination MYLENE ALMEIDA [facility] Start: 04-24-2022 End: 04-24-2022 Patient encounter [...] Start: 03-07-2022 End: 03-07-2022 ambulatory PAT NEWELL Facility:[facility] Start: 01-11-2022 Telephone encounter Mylene henderson MD Work Phone: Ophthalmology Comment on above: Appointment Start: 05-11-2020 End: 05-12-2020 ambulatory [facility] Facility:[facility] Start: 04-04-2020 End: 04-05-2020 ambulatory [facility] Facility:[facility] Start: 02-24-2019 End: 03-05-2019 Evaluation and management of inpatient [facility] Start: 02-23-2019 End: 02-24-2019 [facility] Start: 02-23-2019 End: 02-26-2019 Patient encounter procedure [facility] Start: 02-22-2019 End: 02-24-2019 Patient encounter procedure [facility] Start: 02-22-2019 End: 02-27-2019 Patient encounter procedure [facility] Procedures Date Procedure Procedure Detail Performing [...] INCENTIVE SPIROMETRY RT FAN ASHLEY Start: 02-25-2019 TRAINING AND QUALITY MANAGER EVAL AND TREAT FAN Y OO Start: [...] ASHLEY Start: 02-23-2019 FLUORO FOR SURGICAL PROCEDURES AFN ASHLEY Start: 02-23-2019 Level iv surg pathol [...] of both eyes Expected: 03/07/2023, Expires: 08/29/2023 [facility] Work Phone: Comment on above: Expected: 03/07/2023 , Expires: 08/29/2023 Start: 08-11-2022 ADVANCE DIRECTIVE DISCUSSION ADVANCE DIRECTIVE DISCUSSION [facility] Start: 07-09-2022 COVID-19 VACCINE (4 - Booster for Pfizer series) COVID-19 VACCINE (4 - Booster for Pfizer series) [facility] Start: 05-03-2022 COVID-19 VACCINE (4 - Booster for Pfizer series) COVID-19 VACCINE (4 - Booster for Pfizer series) [facility] Start: 04-11-2022 Influenza vaccination [facility] Start: 08-11-2021 ADVANCE DIRECTIVE DISCUSSION ADVANCE DIRECTIVE DISCUSSION [facility] Start: 03-01-2021 COVID-19 VACCINE (3 - Booster for Pfizer series) COVID-19 VACCINE (3 - Booster for Pfizer series) [facility] Start: 06-20-2019 DIABETES SCREEN DIABETES SCREEN [facility] Start: 06-14-2017 Adult depression screening assessment DEPRESSION SCREENING [facility] Start: 05-30-2013 PNEUMOCOCCAL: 65+ (2 - PCV) PNEUMOCOCCAL: 65+ (2 - PCV) [facility] Start: 2011 BONE DENSITY BONE DENSITY [facility] Start: 01-22-1996 SHINGRIX VACCINE (1 of 2) SHINGRIX VACCINE (1 of 2) [facility] Start: 1991 COLOGUARD (FIT-DNA) COLOGUARD (FIT-D NA) [facility] Start: 1991 Colonoscopy COLONOSCOPY [facility] Start: 1991 COLORECTAL CANCER SCREENING COLORECTAL CANCER SCREENING [facility] Start: [address] COLONOGRAPHY [facility] Start: 1991 FECAL OCCULT BLOOD FECAL OCCULT BLOO D [facility] Start: 1991 LIPID SCREEN LIPID SCREEN [facility] Start: 1991 SIGMOIDOSCOPY SIGMOIDOSCOPY [facility] Start: 1965 Urine microalbumin profile DTAP,TDAP,TD (1 - Tdap) [facility] Start: 01-22-1964 ANNUAL PCP TEAM TRANSIT PLANNING MANAGER KALA DISEASE VISIT ANNUAL PCP TEAM CHRONIC DISEASE VISIT [facility] Start: 01-22-1964 BP CONTROLLED (<130/80) BP CONTROLLE D (<130/80) [facility] Start: 01-22-1964 Hepatitis B surface antibody level LDL CHOLESTEROL [facility] Start: 01-22-1964 HEPATITIS C SCREENING HEPATITIS C SC REENING [facility] Start: 1958 Adult depression screening assessment DEPRESSION SCREENING [facility] Start: 1951 COVID-19 VACCINE (#1) COVID-19 VACCI NE (#1) [facility] CORNEAL TOPOGRAPHY PENTACAM OU (BOTH EYES) CORNEAL TOPOGRAPHY PENTACAM OU (BOTH EYES) OPHT Imaging Routine Combined forms of age-related cataract of both eyes 04/24/2022 12:46 PM EDT [facility] Work Phone: [facility] Immunizations Immunization Date Immunization Notes Care Provider Stefanie aleman 05-30-2012 influenza virus vacc ine, unspecified formulation Mylene Wayne MD Work Phone: [facility] 05-30-2012 pneumococcal polysaccharide vaccine, 23 valent Mylene Wayne MD Work Phone: [facility] Payers Date Payer Category Payer Self-pay [id number] 2019 Private Health Insurance [id number] 2019 Private Health Insurance [employer] MEDICARE SUPPLEMENT [id number] 2019-Present [phone] [address] [place] [address] Indemnity [id number] 2019 Private Health Insurance [employer]N MEDICARE SUPPLEMENT [id number] 2019-Present [phone] [address] [place] [address] Indemnity [id number] 2016 Medicare [id number] 2016 Private Health Insurance [id number] 2011 Medicare MEDICARE MEDICAR E A AND B [id number] 2011-Present [phone] [place] [id number] Medicare [id number] 2011 Medicare MEDICARE MEDICAR E A AND B [id number] 2011-Present [phone] [place] [address] Medicare [id number] 1959 Medicare [id number] 1959 Private Health Insurance [id number] 1945 Unknown [id number] 1945 Unknown [id number] .182 1945 Unknown [id number] .182 1945 Unknown [id number] .182 1945 Unknown [id number] .182 1945 Unknown [id number] .182 1945 Unknown [id number] .647 1945 Unknown [id number] [id number] .647 1945 Unknown [id number] [id number] .593 1945 Unknown [id number] .593 1945 Unknown [id number] .593 1945 Unknown [id number] [id number] .593 1945 Unknown [id number] .593 Unknown [id number] .531 Social History Date Type Detail Facility Start: 04-28-2012 End: 07-30-2017 Tobacco smoking status NHIS Ex-smoker [facility] End: 04-28-1990 History of tobacco use Current smoker [facility] End: 04-28-1990 History of tobacco use Cigarette Smoker [facility] Start: 04-28-2012 End: 04-24-2022 Cigarettes smoked current (pack per day) - Reported 0.7 [facility] Start: 06-14-2016 End: 10-10-2022 Alcohol intake Current non-drinker of alcohol (finding) [facility] Start: 1945 Sex Assigned At Not on file [facility] Start: 04-24-2022 Tobacco use and exposure Former smokeless tobacco user [facility] Work Phone: Start: 04-07-2022 End: 05-01-2022 Exposure to SARS-CoV-2 (event) Not sure [facility] Work Phone: Start: 1945 Sex Assigned At Female F [facility] Medical Equipment Procedure Code Equipment Code Equipment Original Text Equipment Identifier Dates Elan Bn Smpx P Radpq Fd Strl - [id number] Start: 05-27-2012 Sys Bncmnt Prep Kt Plg Brsh - [id number] Start: 05-27-2012 Comment on above: Description: CEMENT RESTRICTOR Stem Fem 50mm 12mm Elan Trthln - [id number] Start: 05-27-2012 Comment on above: Description: cemente d stem Aug Tib 10mm Trthln 3 Rt - [id number] Start: 05-27-2012 Comment on above: Description: AUGMENT Comp Fem 3 Rt Kn Total Stab - [id number] Start: 05-27-2012 Comment on above: Description: TS FEMU R Ins Tib 3 13mm K n X3 Cs Trthln - [id number] Start: 05-27-2012 Comment on above: Description: CS INSE RT Comp Pat 10mm 32mm Asym Trthln - [id number] Start: 05-27-2012 Comment on above: Description: PATELLA Baseplt Tib Trthln 3 Kn Total - [id number] Start: 05-27-2012 Comment on above: Description: UNIVERS AL BASEPLATE Lens Iol 0d +19. 5 Talat Uv Abs - [id number] Start: 05-01-2022 Comment on above: Description: -1.52 Lens Iol 0d +18 Talat Uv Abs - [id number] Start: 05-15-2022 Comment on above: Description: -0.34 Clinical Notes 01-16-2022 to 09-03-2023 Patient Sebastian Almeida V, MD - 10/10/2022 12:24 PM Lenin Murphy, OD - 10/10/2022 11:44 AM Mark Almeida V, MD - 05/02/2022 10:44 AM EDT Note Date & Type Note Facility 09-03-2023 Note [place] [facility] Subjective Son Hubbard is a 78 y.o. year old female patient being seen for follow up VIOL[place]. C/o extreme tiredness . Denies chest pain, SOB, and palpitations. 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 Primary hypertension Nonrheumatic aortic valve insufficiency Status post insertion of drug eluting coronary artery stent Abnormal gait Acid reflux Anxiety Chronic bilateral low back pain without sciatica Depression Former smoker, stopped smoking in distant past History of lumbar laminectomy Hx of total knee replacement, right Hyperlipidemia Knee pain Lumbar disc herniation Lumbar radiculopathy Vertigo Family History Problem Relation Name Age of Onset Coronary artery disease Father Hypertension Father Social History Tobacco Use Smoking status: Former Types: Cigarettes Quit date: 1989 Years since quittin.0 Smokeless tobacco: Never Substance Use Topics Alcohol use: Yes Comment: occasional HPI She is a 78-year-old woman who has known that she had mitral regurgitation for many years. She was followed up by outside cardiology. In 2019 she became very symptomatic with shortness of breath NYHA class III. In February and early March 2020 she was admitted to the [facility] with worsening shortness of breath. The [...] did not tolerated due to side effects. In June 2023 she was admitted to the [facility] with worsening shortness of breath and fatigue. She was started on thyroid medicine. Her NT proBNP was elevated. She was managed accordingly. She was seen in follow-up in our clinic and a transesophageal echocardiogram was performed that showed moderate to severe mitral regurgitation. Today she reports that she has been relatively okay. She is not clear on her shortness of breath symptoms. She says that she feels very tired and fatigued. She cannot do the activities that she wants to do. She denies chest pain. Review of Systems Constitutional: Positive for malaise/fatigue. Cardiovascular: Positive for dyspnea on exertion. Respiratory: Positive for cough. All other systems reviewed and are negative. Objective Visit Vitals BP 102/64 (BP Location: Left arm, Patient Position: Sitting) Pulse 92 Ht 1.651 m (5' 5 ) Wt 83.9 kg (185 lb) SpO2 97% BMI 30.79 kg/m??? Smoking Status Former BSA 1.96 m??? Physical Exam Constitutional: Appearance: She is [...] 2+ on the left side. Heart sounds: Murmur heard. Systolic (apex) murmur is present with a grade of 3/6. No friction rub. No gallop. Pulmonary: Effort: Pulmonary effort is normal. No respiratory distress. Breath sounds: Normal breath sounds. No wheezing or rales. Chest: Chest wall: No tenderness. Abdominal: General: Bowel sounds are normal. There is no distension. Palpations: Abdomen is soft. Tenderness: There is no abdominal tenderness. Musculoskeletal: General: No swelling. Cervical back: Neck supple. Right lower le+ Pitting Edema present. Left lower le+ Pitting Edema present. Skin: General: Skin is warm and dry. Neurological: General: No focal deficit present. Mental Status: She is alert and oriented to person, place, and time. Psychiatric: Mood and Affect: Mood normal. Behavior: Behavior is cooperative. Judgment: Judgment normal. Allergies Allergies Allergen Reactions Serina Inhibitors Amlodipine Swell (more content not included)... [facility] 08-06-2023 Note Patient: Son arguelles Procedure Information Date/Time: 08/06/23 1030 Procedure: TRANSESOPHAGEAL ECHO (VIOLA) Location: [facility] Clinical information reviewed: Allergies Meds Physical Exam Airway Mallampati: II TM distance: >3 FB Neck ROM: full Cardiovascular Dental Pulmonary Abdominal Anesthesia Plan ASA 2 other (Moderate sedation) Additional Equipment Requests [facility] 07-08-2023 Note Patient here for [facility] for SOB and chest pain. She was started on isosorbide. She is scheduled for outpatient stress test next week. She denies chest pain. SOB is improving. C/o LE edema which resolves by morning. C/o fatigue. Review of Systems Cardiovascular: Positive for leg swelling. All other systems reviewed and are negative. [facility] 07-08-2023 Note Cardiovascular Medic [facility] SUBJECTIVE Chief Complaint Patient presents with Fatigue Congestive Heart Failure Edema Shortness of Breath Son Hubbard is a 78 y.o. female here for hospital follow-up. HPI She started to have feeling of chest congestion around 06/21/2023 (this was similar to how she felt prior to her stent placement) and she presented to [facility]. She states she was having SOB [...] March 2020 she was admitted to the [facility] with worsening shortness of breath. 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 [facility] 03-28-2023 Note [place] [facility] Subjective Son Hubbard is a 78 y.o. 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 The [...] tablet, TAKE 1 (more content not included)... [facility] 10-18-2022 Note HNO ID: [id number] Author: Steph Murphy OD Service: ? Author Type: HAT BLOCK BENCH HAND Type: Progress Notes Filed: 10/18/2022 10:33 AM [...] its relevant components. Steph Katherine, OD October 18, 2022 10:31 AM [facility] 10-10-2022 Note HNO ID: [id number] Author: Mylene Almeida V, MD Service: ? [...] patient was offered a surgery/procedure at a [facility] facility. The surgeon/proceduralist and patient have discussed [...] ALMEIDA MD October 10, 2022 12:24 PM [facility] 10-10-2022 Note HNO ID: [id number] Author: Steph Murphy, JOAQUIM Service: ? Author Type: HAT BLOCK BENCH HAND Type: Progress Notes Filed: 10/10/2022 12:30 PM [...] Murphy, OD October 10, 2022 11:45 AM [facility] 10-10-2022 Instructions Mylene Almeida V, MD [...] so we recommend you come with a combine driver. You will then be scheduled for a follow up in approximately one week. If you notice any of the following symptoms of retinal detachment, please call our office at : - Flashes of light - Increased number of floaters or large floaters - Curtains, veils, or spider web pattern over vision documented in this encounter [facility] 10-10-2022 History of Present illness Narrative The documentation for this note was completed by Samantha Garcia, COA acting as a scribe for Mylene [...] patient was offered a surgery/procedure at a [facility] facility. The surgeon/proceduralist and patient have discussed [...] Murphy, OD October 10, 2022 11:45 AM documented in this encounter [facility] 05-02-2022 Note HNO ID: [id number] Author: Mylene Almeida V, MD Service: ? [...] ALMEIDA MD May 02, 2022 10:44 AM [facility] 05-02-2022 History of Present illness Narrative [...] 2022 10:44 AM documented in this encounter [facility] 05-01-2022 Note HNO ID: [id number] Author: Naila Cedillo OD Service: ? Author Type: HAT BLOCK BENCH HAND Type: Progress Notes Filed: 05/02/2022 7:54 AM [...] with all of its relevant components. Naila Cedillo OD May 01, 2022 6:05 PM [facility] 05-01-2022 History of Present illness Narrative [...] cornea before applanating the patient Naila Cedillo, JOAQUIM I have confirmed and edited as necessary [...] with all of its relevant components. Naila Cedillo OD May 01, 2022 6:05 PM documented in this encounter [facility] 04-24-2022 Note HNO ID: [id number] Author: CHRISTAL Calles Service: ? Author Type: Medical Records Assistant Type: Progress Notes Filed: 04/24/2022 12:47 PM Note Text: Confirmed Aim: -1.50 OS, [place] OD CHRISTAL Calles April 24, 2022 12:46 PM [facility] 04-24-2022 History of Present illness Narrative Confirmed Aim: -1.50 OS, [place] OD CHRISTAL Calles April 24, 2022 12:46 PM documented in this encounter [facility] 03-07-2022 Note HNO ID: [id number] Author: Mylene Almeida V, MD Service: ? [...] and surgery - Comanage with Dr Wilson; [facility] POD #1 Cataract Presurgical Documentation Cataract: [...] patient was offered a surgery/procedure at a [facility] facility. The surgeon/proceduralist and patient have discussed [...] ALMEIDA MD March 07, 2022 1:25 PM [facility] 03-07-2022 Note HNO ID: [id number] Author: Marian Arroyo OD Service: ? Author Type: HAT BLOCK BENCH HAND Type: Progress Notes Filed: 03/07/2022 1:34 PM [...] Arroyo, JOAQUIM March 07, 2022 12:59 PM [facility] 03-07-2022 History of Present illness Narrative The documentation for this note was completed by Samantha Alberts, CHRISTAL acting as a scribe for Mylene ALMEIDA [...] and surgery - Comanage with Dr Wilson; [facility] POD #1 Cataract Presurgical Documentation Cataract: [...] patient was offered a surgery/procedure at a [facility] facility. The surgeon/proceduralist and patient have discussed [...] Arroyo, JOAQUIM March 07, 2022 12:59 PM documented in this encounter [facility] 01-16-2022 Miscellaneous Notes Patient has been rescheduled with Dr. Almeida for March 07 in [place] Patient called Appointment Center and was scheduled with Dr. Taylor. We are waiting to confirm from Dr. Wilson office if it is ok for patient to stay scheduled with or to call and reschedule with Dr. [place] LVM for patient to schedule at Cataract Evaluation with Dr. Almeida in [place] per faxed referral from Dr. Wilson. First attempt 01/11/22. Referral scanned into chart. documented in this encounter [facility] Evaluation note Diagnosis Combined forms of age-related cataract of both eyes- Primary Other and combined forms of senile cataract Posterior vitreous detachment of right eye Vitreous degeneration documented [facility] this [facility] Diagnosis Combined forms of age-related cataract of both eyes- Primary Other and combined forms of senile cataract documented [facility] Diagnosis Combined forms of age-related cataract of both eyes Other and combined forms of senile cataract Combined forms of age-related cataract of both eyes Other and combined forms of senile cataract Combined forms of age-related cataract of both eyes Other and combined forms of senile cataract [facility] Diagnosis Superficial punctate keratitis of left eye- Primary Pseudophakia Lens replaced by other means Combined forms of age-related cataract of both eyes Other and combined forms of senile cataract [facility] Diagnosis S/P cataract extraction and insertion of intraocular lens, left- Primary Combined forms of age-related cataract of both eyes Other and combined forms of senile cataract documented [facility] this [facility]Evaludel[facility] noteNo assessment information availableUc Health Ctr Work Phone: Evaluation note* Diagnosis PCO (posterior capsular opacification), bilateral- Primary After-cataract, unspecified Pseudophakia of both eyes Lens replaced by other means Vitreous degeneration, 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 Other retinal disorders documented in this encounter [facility] Summary Purpose Family History No Family History [...] section and content) DATE CREATED AUTHOR 03/05/2019 [facility] DATE CREATED AUTHOR AUTHOR'S ORGANIZ ATION 03/13/2021 [facility] DATE CREATED AUTHOR AUTHOR'S ORGANIZ ATION 10/19/2022 [facility] DATE CREATED AUTHOR AUTHOR'S ORGANIZ ATION 11/18/2022 [facility] DATE CREATED AUTHOR AUTHOR'S ORGANIZ ATION 06/18/2023 [facility] DATE CREATED AUTHOR AUTHOR'S ORGANIZ ATION 09/04/2023 [facility] Source Comments (unrecognize d section and content) In the event this informatio n is protected by the Federal Confidentiality of Alcohol and Drug Abuse Patient Records regulations: The Federal rules restrict any use of the information to criminally investigate or prosecute any alcohol or drug abuse patient.[facility] Center[facility] the event this information is protected by the Federal Confidentiality of Alcohol and Drug Abuse Patient Records regulations: The Federal rules restrict any use of the information to criminally investigate or prosecute any alcohol or drug abuse patient.[facility] CenterIn the event this information is protected by the Federal Confidentiality of Alcohol and Drug Abuse Patient Records regulations: The Federal rules restrict any use of the information to criminally investigate or prosecute any alcohol or drug abuse patient.[facility] Center[facility] the event this information is protected by the Federal Confidentiality of Alcohol and Drug Abuse Patient Records regulations: The Federal rules restrict any use of the information to criminally investigate or prosecute any alcohol or drug abuse patient.[facility] Center[facility] the event this information is protected by the Federal Confidentiality of Alcohol and Drug Abuse Patient Records regulations: The Federal rules restrict any use of the information to criminally investigate or prosecute any alcohol or drug abuse patient.[facility] CenterIn the event this information is protected by the Federal Confidentiality of Alcohol and Drug Abuse Patient Records regulations: The Federal rules restrict any use of the information to criminally investigate or prosecute any alcohol or drug abuse patient.[facility] CenterIn the event this information is protected by the Federal Confidentiality of Alcohol and Drug Abuse Patient Records regulations: The Federal rules restrict any use of the information to criminally investigate or prosecute any alcohol or drug abuse patient.[facility] Reason for Visit (unrecogniz ed section and [...] ovider Active Referral Self Attending Provider Active Soc Analyst Relationship Specialty Start Date End Date Pat Newell MD PCP - General Family Practice 03/30/12 Soc Analyst Relationship Specialty Start Date End Date Pat Newell MD PCP - General Family Practice 03/30/12 Soc Analyst Relationship Specialty Start Date End Date Pat Newell MD PCP - General Family Practice 03/30/12 Soc Analyst Relationship Specialty Start Date End Date Pat Newell MD PCP - General Family Practice 03/30/12 Soc Analyst Relationship Specialty Start Date End Date Pat Newell MD PCP - General Family Medicine 03/30/12 Soc Analyst Relationship Specialty Start Date End Date Pat Newell MD PCP - General Family Medicine 03/30/12 Soc Analyst Relationship Specialty Start Date End Date Pat [...] BE BASED ON THE PRIMARY CLINICAL RECORDS. [facility] [employer] [facility] provides no warranty or guarantee of the accuracy or completeness of information in this document.
[2023-09-09 12:04] LABS: Basophils Absolute Auto 0.1 10^3/uL (0.0-0.1); Basophils Percent Auto 0.8 % (0.2-2.0); Eosinophils Absolute Auto 0.2 10^3/uL (0.0-0.7); Eosinophils Percent Auto 2.4 % (0.9-7.0); Hematocrit 38.5 % (36.0-48.0); Hemoglobin 12.6 g/dL (12.0-16.0); Immature Granulocytes Abs Auto 0.02 10^3/uL (0.00-0.03); Immature Granulocytes Pct Auto 0.3 % (0.0-0.5); Lymphocytes Absolute Auto 1.7 10^3/uL (1.2-3.8); Mean Corpuscular HGB Conc 32.7 g/dL (29.9-35.2); Mean Corpuscular Hemoglobin 31.4 pg (26.7-34.0); Mean Platelet Volume 11.1 fL (9.5-13.5); Monocytes Absolute Auto 0.7 10^3/uL (0.3-0.8); Neutrophils Absolute Auto 3.8 10^3/uL (1.4-6.5); Neutrophils Percent Auto 59.5 % (43.0-75.0); Platelet Count 193 10^3/uL (150-450); Red Blood Count 4.01 10^6/uL (4.20-5.40); Red Cell Distribution Width 13.2 % (11.0-15.0); White Blood Count 6.4 10^3/uL (4.0-11.0)
[2023-09-09 13:45] LABS: Alanine Aminotransferase 20 U/L (14-59); Albumin Globulin Ratio 0.9; Albumin Level 3.4 g/dL (3.4-5.0); Alkaline Phosphatase 99 U/L (46-116); Anion Gap 8.9; Aspartate Amino Transferase 14 U/L (15-37); BUN Creatinine Ratio 16.9; Bilirubin Total 0.9 mg/dL (0.2-1.0); Calcium 9.2 mg/dL (8.5-10.1); Chloride 104 mmol/L (98-107); Estimated GFR (African America 54 (>=60); Estimated GFR (Non-African Ame 44 (>=60); Free T3 2.72 pg/mL (2.18-3.98); Globulin 3.6 g/dL; Glucose 111 mg/dL (74-106); Potassium 3.9 mmol/L (3.5-5.1); Sodium 140 mmol/L (136-145); Thyroid Stimulating Hormone 1.478 uIU/mL (0.358-3.740)
== END 2023-09-09 11:01 | disposition home or self-care (01) ==
LOC: LAB 11:02
PROVIDERS: PCP Family Medicine; Visit Provider Family Medicine
DX: G47.00 Insomnia, unspecified (principal); I25.10 Atherosclerotic heart disease of native coronary artery without angina pectoris; I10 Essential (primary) hypertension
CPT/HCPCS: 80053; 83880; 84436; 84443; 84481; 85025

== ENCOUNTER 2023-09-29 22:47 | Observation (INO) | payer MEDICARE, OTHER, SELFPAY ==
[2023-09-29] VITALS (13 sets, daily range): BP systolic 98–159; BP diastolic 66–100; PULSE 98–193; RESP 12–24; O2SAT 96–99; BMI 30.3
--- OUTSIDE RECORDS SUMMARY | 2023-09-29 22:54 | XMS_ITS | CCD ---
Author Name Unknown Address [address] [place] [address] Organization [facility] Care Team Providers Care Gardening Instructor Name Role Phone ASHLEY, FAN H. Referring [...] Unavailable Pat Newell MD Primary Care Provider [phone] Pat Newell MD Primary Care Provider Pat Newell MD Primary Care Provider [phone] MD Pat Newell Primary Care Provider [phone] MD Pat Newell Referring Provider Self, [...] Unavailable MD Pat Newell Primary Care Provider [phone] MD Pat Newell Referring Provider [phone] Self, Referral Attending Provider Unavailable Self, Referral Attending Unavailable Pat Newell Primary Care Unavailable Pat Newell Referring Unavailable Self, Referral Admitting Unavailable CLINTON DORAN Attending Unavailable DINORAH MONTES Attending Unavailable CLINTON DORAN Referring Unavailable MOUKACLINTON ENGEL Attending Unavailable Allergies Allergy Classification Reported Allergen(s) Allergy Type Date of Onset Reaction(s) Facility Angiotensin Converting Enzyme (SERINA) Inhibitors (1 source) Angiotensin Converting Enzyme (Serina) Inhibitors Drug Allergy 08-25-2020 [facility] Repository Opioid Agonists (2 sources) Codeine; Translations: [morphine] Drug Allergy 04-04-2020 [facility] (5 sources) Angiotensin-conv erting enzyme inhibitor agent; Translations: [SERINA INHIBITORS] Drug Allergy 04-28-2012 [facility] (10 sources) Codeine; Translations: [CODEINE] Drug Allergy 04-28-2012 [facility] (9 sources) HYDROmorphone; Translations: [HYDROMORPHONE (BULK)] Drug Allergy 05-12-2012 [facility] (7 sources) Angiotensin-conv erting enzyme inhibitor agent Drug Allergy 04-28-2012 [facility] (7 sources) amLODIPine; Translations: [AMLODIPINE] Drug Allergy 04-24-2022 [facility] (3 sources) Acetaminophen; Translations: [acetaminophen] Drug Allergy 07-28-2017 [facility] (3 sources) HYDROcodone; Translations: [hydrocodone] Drug Allergy 07-28-2017 [facility] (5 sources) Meperidine; Translations: [meperidine] Drug Allergy 07-28-2017 [facility] (5 sources) Morphine; Translations: [morphine] Drug Allergy 07-28-2017 [facility] (1 source) Angiotensin Converting Enzyme (Serina) Inhibitors Drug allergy (disorder) 04-22-2013 [facility] (1 source) Codeine Drug Allergy 04-29-2013 [facility] (1 source) Meperidine Drug Allergy 04-29-2013 [facility] (1 source) Angiotensin Converting Enzyme (Esrina) Inhibitors Drug allergy (disorder) 07-28-2017 [facility] Repository (1 source) Amoxicillin; Translations: [AMOXICILLIN] Drug Allergy 03-13-2023 [facility] Repository (1 source) gabapentin; Translations: [GABAPENTIN] Drug Allergy 05-25-2019 [facility] Repository Medications Current Medications Medication Drug Class(es) Dates Sig (Normalized) Sig (Original) amLODIPine 5 mg oral tablet (4 sources) Dihydropyridine Calcium Channel Ken Start: 03-18-2012 End: 03-07-2022 take 5 mg by mouth once daily Amlodipine Active 5 MG PO Daily July 28, 2017 1:00am Comment on above: once daily. baclofen 20 mg oral tablet (2 sources) gamma-Aminobutyric Acid-ergic Agonist Start: 07-28-2017 take 20 mg by mouth twice daily Baclofen Active 20 MG PO Twice daily July 28, 2017 1:00am benoxinate hydrochloride 4 mg/ml / fluorescein sodium 2.5 mg/ml ophthalmic solution (1 source) Diagnostic Dye Start: 10-10-2022 End: 10-10-2022 fluorescein-benoxi evelin 0.25-0.4 % 1 Drop (FLURESS) cephalexin 500 mg oral capsule (2 sources) Cephalosporin Antibacterial Start: 07-29-2017 take 1 capsule by mouth every eight hours Cephalexin (Keflex) 500 mg capsule Active 500 MG PO Q8H 21 July 29, 2017 1:00am docusate sodium 50 mg / sennosides, prison 8.6 mg oral tablet (2 sources) Start: 07-29-2017 take 2 tablets by mouth twice daily Sennosides-Docusat e Sodium (Dok Plus) 8.6-50 mg Tablet Active 2 TAB PO Twice daily 40 July 29, 2017 1:00am FLUoxetine 20 mg oral capsule (4 sources) Serotonin Reuptake Inhibitor Start: 03-18-2012 End: 03-07-2022 take 20 mg by mouth once daily Fluoxetine Active 20 MG PO Daily July 28, 2017 1:00am Comment on above: once daily. phenylephrine hydrochloride 25 mg/ml ophthalmic [...] Sig (Original) aspirin 81 mg oral tablet (7 sources) Platelet Aggregation Inhibitor, Nonsteroidal Anti-inflammatory Drug aspirin 81 mg cap Take by mouth. 0 Active Comment on above: Take by mouth. atorvastatin 40 mg oral tablet (10 sources) HMG-CoA Reductase Inhibitor Start: 09-29-2022 take 1 tablet by mouth once daily atorvastatin (LIPITOR) 40 mg tablet Take 40 mg by mouth once daily. 0 09/29/2022 Active Start: 07-28-2017 take 10 mg by mouth at bedtime Atorvastatin Active 10 MG PO Bedtime July 28, 2017 1:00am Comment on above: Take 10 mg by mouth once daily. Take 40 mg by mouth once daily. Biotin (1 source) BIOTIN ORAL celecoxib 200 mg oral capsule (2 sources) Nonsteroidal Anti-inflammatory Drug Start: End: take 200 mg by mouth once daily Celecoxib Discontinued 200 MG PO Daily July 28, 2017 1:00am July 29, 2017 6:21pm cyclobenzaprine hydrochloride 5 mg oral tablet (6 sources) Muscle Relaxant Start: take 1 tablet by mouth once daily at bedtime cyclobenzaprine (FLEXERIL) 5 mg tablet Take 5 mg by mouth daily at bedtime. 0 02/08/2022 Active Comment on above: Take 5 mg by mouth d aily at bedtime. furosemide 20 mg oral tablet (7 sources) Loop Diuretic furosemide (LASI X) 20 mg tablet Take 20 mg by mouth. 0 Active Comment on above: Take 20 mg by mouth. hydrALAZINE hydrochloride 25 mg oral tablet (7 sources) Arteriolar Vasodilator hydrALAZINE (APRESOLINE) 25 mg tablet Take 25 mg by mouth. 0 Active Comment on above: Take 25 mg by mouth. ketorolac tromethamine 5 mg/ml ophthalmic solution (4 sources) Nonsteroidal Anti-inflammatory Drug, Cyclooxygenase Inhibitor Start: End: keTORolac (ACULAR) 0.5 % ophthalmic solution USE DIRECTED BY PHYSICIAN, IN OPERATIVE EYE, BEGINNING ONE DAY AFTER SURGERY 5 mL 0 05/14/2022 10/10/2022 Discontinued (Course of therapy completed) Comment on above: USE DIRECTED BY Star COE, IN OPERATIVE EYE, BEGINNING ONE DAY AFTER SURGERY krill oil 500 mg oral capsule (1 source) krill oil 500 mg cap losartan potassium 100 mg oral tablet (12 sources) Angiotensin 2 Receptor Ken Start: 03-05-2 023 losartan (COZAAR) 100 mg tablet Start: 07-28-2017 take 25 mg by mouth [...] Take 100 mg by mouth once daily. Multivitamin capsule (8 sources) take 1 capsule by mouth once daily Multivitamin capsule Take 1 capsule by mouth once daily. 0 Active Comment on above: Take 1 capsule by mo uth once daily. Naproxen (2 sources) Nonsteroidal Anti-inflammatory Drug End: 03-07-20 22 NAPROXEN SODIUM (ALEVE ORAL) Take by mouth. 0 03/07/2022 Discontinued (Discontinued by Patient) NAPROXEN SODIUM (ALEVE ORAL) Take by mouth. 0 Active Comment on above: Take by mouth. niacin 500 mg oral tablet (2 sources) Nicotinic Acid End: 2 niacin, inositol niacinate, 500 mg tab Take by mouth. 0 03/07/2022 Discontinued (Discontinued by Patient) Comment on above: Take by mouth. pantoprazole 40 mg delayed release oral tablet (7 sources) Proton Pump Inhibitor Start: 3 take 1 tablet by mouth once daily pantoprazole DR (PROTONIX) 40 mg tablet Take 40 mg by mouth once daily. 0 08/30/2022 Active pantoprazole sod ium (PANTOPRAZOLE ORAL) Take 40 mg by mouth. 0 Active Comment on above: Take 40 mg by mouth. Take 40 mg by mouth once daily. microencapsulated potassium chloride 10 meq extended release oral tablet (7 sources) Start: 01-23-2022 potassium chloride ER (K-DUR, [...] mouth. traMADol hydrochloride 50 mg oral tablet (11 sources) Opioid Agonist Start: 11-27-2021 take 1 [...] as needed. TYRVAYA 0.03 mg/spray nasal spray (7 sources) Start: take 1 spray(s) nasal route twice daily TYRVAYA 0.03 mg/spray nasal spray Instill 1 spray into both nostrils twice a day 0 01/03/2022 Active Comment on above: Instill 1 spray into both nostrils twice a day ubidecarenone 10 mg oral capsule (2 sources) ubidecarenone Q- 10 (COENZYME Q-10) 10 mg cap End: 03-07-2022 ubidecarenone Q-10 (COENZYME Q-10) 10 mg cap Take by mouth. 0 03/07/2022 Discontinued (Discontinued by Patient) Comment on above: Take by mouth. 24 hr venlafaxine 75 mg extended release oral capsule (5 sources) Serotonin and Norepinephrine Reuptake Inhibitor Start: 04-09-20 22 take 1 capsule by mouth once daily venlafaxine ER (EFFEXOR XR) 75 mg 24 hr capsule Take 75 mg by mouth once daily. 0 04/09/2022 Active Comment on above: Take 75 mg by mouth once daily. vit A/vit C/vit E/zinc/copper (PRESERVISION AREDS ORAL) (1 source) vit A/vit C/vit E/zinc/copper (PRESERVISION AREDS ORAL) VIT C/VIT E/LUTEIN/MIN/OMEGA-3 (OCUVITE ORAL) (8 sources) VIT C/VIT E/LUTEIN/MIN/OMEGA- 3 (OCUVITE ORAL) Take by mouth. 0 Active Comment on above: Take by mouth. Problems Active Problems Problem Classification Problem Date Documented Date Episodic/Chronic Acute bronchitis (1 source) Acute bronchitis, unspecified; Translations: [ACUTE BRONCHITIS UNSPECIFIED] Onset: 09-29-2022 Episodic Anxiety disorders (5 sources) Anxiety; Translations: [Anxiety disorder, unspecified] Onset: 04-24-2022 04-24-2022 Chronic Cataract (10 sources) Bilateral senile combined form cataracts of eyes; Translations: [Combined forms of age-related cataract, bilateral] Onset: 03-07-2022 Chronic Congestive heart failure; nonhypertensive (2 sources) Acute on chronic diastolic (congestive) heart failure; Translations: [Acute on chronic diastolic (congestive) heart failure] Onset: 07-08-2023 Chronic Coronary atherosclerosis and other heart disease (8 sources) Coronary arteriosclerosis; Translations: [Atherosclerotic heart disease of belkofski coronary artery without angina pectoris] Onset: 04-24-2022 04-24-2022 Chronic Deficiency and other anemia (1 source) Anemia, unspecified; Translations: [ANEMIA UNSPECIFIED] Onset: 11-18-2022 Episodic Diabetes mellitus without complication (1 source) Hyperglycemia, unspecified; Translations: [HYPERGLYCEMIA UNSPECIFIED] Onset: 11-18-2022 Episodic Disorders of lipid metabolism (10 sources) Hyperlipidemia; Translations: [Hyperlipidemia, unspecified] Onset: 02-22-2019 04-24-2022 Chronic Esophageal disorders (5 sources) Gastroesophageal reflux disease; Translations: [Gastro-esophageal reflux disease without esophagitis] Onset: 02-22-2019 04-24-2022 Chronic Essential hypertension (8 sources) Hypertensive disorder; Translations: [Essential (primary) hypertension] Onset: 02-22-2019 04-24-2022 Chronic Heart valve disorders (9 sources) Nonrheumatic mitral (valve) insufficiency; Translations: [Nonrheumatic aortic (valve) insufficiency] Onset: 09-11-2022 Chronic Hypertension with complications and secondary hypertension [...] [OTHER FATIGUE] Onset: 11-18-2022 Episodic Mood disorders (5 sources) Depressive disorder; Translations: [Depression] Onset: 04-24-2022 [...] Onset: 07-01-2022 Episodic Other non-traumatic joint disorders (8 sources) Pain in unspecified knee; Translations: [Pain in joint, lower leg] Onset: 06-04-2012 06-04-2012 Episodic Spondylosis; intervertebral disc disorders; other back problems (8 sources) Chronic low back pain; Translations: [Chronic bilateral low back pain without sciatica] Onset: 06-14-2016 08-07-2021 Episodic Unclassified (1 source) CONTACT W/AND (SUSP) EXPOS COVID-19; Translations: [CONTACT W/AND (SUSP) EXPOS COVID-19] Onset: 09-25-2022 Results Test Name Value Interpretation Reference Range Facility 36on 09-22-2023 36 Patient returned our phone call to get Cardiopulmonary Exercise Test scheduled. She told staff that she is not going to do this test and wanted us to inform her provider. When asked why she did not want to do it, she replied that she just doesn't want to. We will inform provider. [facility] 36on 09-19-2023 36 Left voicemail for patient to schedule cardiopulmonary exercise test. [facility] Office Visiton 09-03-2023 Follow-up visit [id number] Brandi Hubbard cca 1945 F Date Provider Department Center 09/03/2023 CLINTON PETERS [facility] Family History Problem Relation Age of Onset Coronary artery disease Father Hypertension Father Family Status - Relation Status Age at Father Level of Service:32352 [place] OFFICE/OUTPATIENT ESTABLISHED MOD MDM 30 MIN [facility] Documentationon 08-06-2023 Documentation [id number] Brandi Hubbard cca S 1945 F Date Provider Department Center 08/06/2023 [facility] Family History Problem Relation Age of Onset Coronary artery disease Father Hypertension Father Family Status - Relation Status Age at Father [facility] HPon 08-06-2023 HP H&P reviewed. The patient was examined and there are no changes to the H&P. [facility] NURSNOTEon 08-06-2023 NURSNOTE Patient to be seen i n clinic by Dr. Doran or nurse practitioner in 1 month to discuss VIOLA results and medical plan. Message left with [facility] to call patient with appoint date and time. Patient provided the number ([phone]) to call [facility] if she does not receive an appointment call by 08/08/2023. [facility] NURSNOTE Bedside swallow stud y completed and passed. [facility] NURSNOTE RN educated pt on d/ c instructions. RN encouraged pt to voice any questions or concerns. Pt verbalizes no questions or concerns at this time. Pt was wheeled off of unit with all of belongings. [facility] Prep for Procedureon 023 Prep for Procedure [id number] Brandi Hubbard cca 1945 F Date Provider Department [place] 08/06/2023 CLINTON PETERS [facility] [place] Count Family History Problem Relation Age of Onset Coronary artery disease Father Hypertension Father Family Status - Relation Status Age at Father [facility] Telephoneon 07-28-2023 Telephone [id number] Brandi Hubbard cca 1945 F Date Provider Department Center 07/28/2023 [facility] [place] Heart[facility]AS Family History Problem Relation Age of Onset Coronary artery disease Father Hypertension Father Family Status - Relation Status Age at Father [facility] 37on 07-08-2023 37 *Resume lasix. Take 20mg daily x1 week then go back to every other day. *Have stress test done. *Watch your fluid intake. Try to limit to 2 liters a day. *Eat a low sodium diet. [facility] HPon 07-08-2023 HP Patient here for [facility] low up TB for SOB and chest pain. She was started on isosorbide. She is scheduled for outpatient stress test next week. She denies chest pain. SOB is improving. C/o LE edema which resolves by morning. C/o fatigue. Review of Systems Cardiovascular: Positive for leg swelling. All other systems reviewed and are negative. [facility] Office Visiton 07-08-2023 Follow-up visit [id number] Brandi Hubbard cca 1945 F Date Provider Department Center 07/08/2023 [facility]AH [facility] Family History Problem Relation Age of Onset Coronary artery disease Father Hypertension Father Family Status - Relation Status Age at Father Level of Service:54330 [place] OFFICE/OUTPATIENT ESTABLISHED MOD [facility] 30-39 MIN Reason for Visit and Comments: Fatigue [46] Congestive Heart Failure [127] Edema [4331237421] Shortness of Breath [308122] Normal [facility] MM screening mammo BI w/CADo n 06-11-2023 MM screening mammo BI w/CAD [facility] [place] [address] [place] [address] Mammography Report Signed Patient: Son Hubbard MR#: [id number] 1827 : 1945 Acct:[id number] Age/Sex: 78 / F ADM Date: 06/11/23 Loc: [place] Room: Type: [facility] Attending Dr: Referral Self Copies to: [...] Charlie Green M.D.06/11/2023 12:04 PM Dictation Location: [facility] Transcribed By: [facility] 06/11/231203 Dictated By: Charlie Green II, MD 06/11/231200 Signed By: 06/11/23 120 [facility] Office Visiton 03-28-2023 Follow-up visit [id number] Brandi Hubbard cca 1945 F Date Provider Department Center 03/28/2023 CLINTON PETERS [facility] Family History Problem Relation Age of Onset Coronary artery disease Father Hypertension Father Family Status - Relation Status Age at Father Level of Service:50766 [place] OFFICE/OUTPATIENT ESTABLISHED LOW MDM 20-29 MIN Reason for Visit and Comments: Follow-up [186134] - 6 MONTH FOLLOW UP Normal [facility] INSULINon 11-13-2022 Insulin 16.2 uIU/mL Normal 2.6-24.9 [facility] Comment on above: Performed By: #### I NSULIN ####[facility] [id number] [address]Dr. Isi Britton CBC AUTO DIFFon 11-12-2022 BASO # 0.0 103/ul Normal 0.0-0.1 [facility] Comment on above: Performed By: #### C BC #### [facility] [address] [address] [address] Isi Britton Basophils/100 WBC (Bld) 0.6 % Normal 0.2-2.0 [facility] Comment on above: Performed By: #### C BC #### [facility] [address] [address] [address] Isi Britton EO # 0.1 103/ul Normal 0.0-0.7 [facility] Comment on above: Performed By: #### C BC #### [facility] [address] [address] [address] Isi Britton Eosinophils/100 WBC (Bld) 1.3 % Normal 0.9-7.0 [facility] Comment on above: Performed By: #### C BC #### [facility] [address] [place] [address] Dr. Isi Britton Erythrocyte distribution width (RBC) [Ratio] 13.1 % Normal 11.0-15.0 [facility] Comment on above: Performed By: #### C BC #### [facility] [address] [place] [address] Dr. Isi Britton Hematocrit (Bld) [Volume fraction] 40.1 % Normal 36.0-48.0 [facility] Comment on above: Performed By: #### C BC #### [facility] [address] [place] [address] Dr. Isi Britton Hemoglobin (Bld) [Mass/Vol] 13.5 g/dL Normal 12.0-16.0 [facility] Comment on above: Performed By: #### C BC #### [facility] [address] [place] [address] Dr. Isi Britton IG # 0.01 10e3/ul Normal 0.00-0.03 [facility] Comment on above: Performed By: #### C BC #### [facility] [address] [place] [address] Dr. Isi Britton IG % 0.2 % Normal 0.0-0.5 [facility] Comment on above: Performed By: #### C BC #### [facility] [address] [place] [address] Dr. Isi Britton LYMPH # 1.6 103/ul Normal 1.2-3.8 [facility] Comment on above: Performed By: #### C BC #### [facility] [address] [place] [address] Dr. Isi Britton Lymphocytes/100 WBC (Bld) 24.9 % Normal 20.5-60.0 [facility] Comment on above: Performed By: #### C BC #### [facility] [address] [place] [address] Dr. Isi Britton MANUAL DIFF REQ NO Normal [facility] Comment on above: Performed By: #### C BC #### [facility] [address] [place] [address] Dr. Isi Britton MCH (RBC) [Entitic mass] 31.9 pg Normal 26.7-34.0 [facility] Comment on above: Performed By: #### C BC #### [facility] [address] [place] [address] Dr. Isi Britton MCHC (RBC) [Mass/Vol] 33.7 g/dL Normal 29.9-35.2 [facility] Comment on above: Performed By: #### C BC #### [facility] [address] [place] [address] Dr. Isi Britton MCV (RBC) [Entitic vol] 94.8 fL Normal 81.0-99.0 [facility] Comment on above: Performed By: #### C BC #### [facility] [address] [place] [address] Dr. Isi Britton MONO # 0.6 103/ul Normal 0.3-0.8 [facility] Comment on above: Performed By: #### C BC #### [facility] [address] [place] [address] Dr. Isi Britton Monocytes/100 WBC (Bld) 10.1 % Normal 1.7-12.0 [facility] Comment on above: Performed By: #### C BC #### [facility] [address] [place] [address] Dr. Isi Britton NEUT # 3.9 103/ul Normal 1.4-6.5 [facility] Comment on above: Performed By: #### C BC #### [facility] [address] [place] [address] Dr. Isi Britton Neutrophils/100 WBC (Bld) 62.9 % Normal 43.0-75.0 [facility] Comment on above: Performed By: #### C BC #### [facility] [address] [place] [address] Dr. Isi Britton Platelet mean volume (Bld) [Entitic vol] 10.5 fL Normal 9.5-13.5 [facility] Comment on above: Performed By: #### C BC #### [facility] [address] [address] [address] Isi Britton PLT 220 103/ul Normal 150-450 [facility] Comment on above: Performed By: #### C BC #### [facility] [address] [address] [address] Isi Britton RBC 4.23 106/ul Normal 4.20-5.40 [facility] Comment on above: Performed By: #### C BC #### [facility] [address] [address] [address] Isi Britton WBC 6.2 103/ul Normal 4.0-11.0 [facility] Comment on above: Performed By: #### C BC #### [facility] [address] [place] [address] Dr. Isi Britton FREE T3on 11-12-2022 FREE T3 2.21 pg/mlL Normal 2.18-3.98 [facility] Comment on above: Performed By: #### L IPID, CMP, T7, FT3, TSH #### [facility] [address] [address] [address] Isi Britton FREE T4on 11-12-2022 Free T4 [Mass/Vol] 1.04 ng/dL Normal 0.76-1.46 [facility] Comment on above: Performed By: #### I RONI, FT4 ####[facility] [id number] [address]Dr. Isi Britton FREE THYROXINE INDEX T7on FTI 3.38 Normal 1.30-4.50 [facility] Comment on above: Performed By: #### L IPID, CMP, T7, FT3, TSH #### [facility] [address] [address] [address] Isi Britton T3U 36.0 % Normal 30.0-39.0 [facility] Comment on above: Performed By: #### L IPID, CMP, T7, FT3, TSH #### [facility] [address] [place] [address] Dr. Isi Britton T4 [Mass/Vol] 9.40 ug/dL Normal 4.80-13.90 [facility] Comment on above: Performed By: #### L IPID, CMP, T7, FT3, TSH #### [facility] [address] [address] [address] Isi Britton GLYCOHEMOGLOBIN A1Con 2022 ADA RECOMMENDATION SEE BELOW Normal [facility] Comment on above: Result Comment: ADA RECOMMENDED LIMIT 4.0 - 6.0 ADA THERAPEUTIC TARGET < 7.0 ACTION SUGGESTED > 7.0 Performed By: #### A 1C #### [facility] [address] [address] [address] Isi Britton Glucose [Mass/Vol] 111 mg/dL Normal [facility] Comment on above: Performed By: #### A 1C #### [facility] [address] [place] [address] Dr. Isi Britton HbA1c (Bld) [Mass fraction] 5.5 % Normal 4.5-6.2 [facility] Comment on above: Performed By: #### A 1C #### [facility] [address] [place] [address] Dr. Isi Britton IRONon 11-12-2022 Iron [Mass/Vol] 71.0 ug/dL Normal 50.0-170.0 [facility] Comment on above: Performed By: #### I RONI, FT4 #### [facility] [address] [place] [address] Dr. Isi Britton LIPID PROFILEon 11-12-2022 CHOL-HDL RATIO NORM SEE BELOW Normal [facility] Comment on above: Result Comment: 3.3 - 4.4 LOW RISK 4.4 - 7.1 AVERAGE RISK 7.1 - 11.0 MODERATE RISK >11.0 HIGH RISK Performed By: #### L IPID, CMP, T7, FT3, TSH #### [facility] [address] [place] [address] Dr. Isi Britton Cholesterol [Mass/Vol] 139 mg/dL Normal <=200 [facility] Comment on above: Performed By: #### L IPID, CMP, T7, FT3, TSH #### [facility] [address] [address] [address] Isi Britton Cholesterol in HDL [Mass/Vol] 70 mg/dL Critically high 40-60 [facility] Comment on above: Performed By: #### L IPID, CMP, T7, FT3, TSH #### [facility] [address] [address] [address] Isi Britton Cholesterol in LDL [Mass/Vol] 49.4 mg/dL Normal [facility] Comment on above: Performed By: #### L IPID, CMP, T7, FT3, TSH #### [facility] [address] [address] [address] Isi Britton Cholesterol.total/C holesterol in HDL [Mass ratio] 2.0 {ratio} Normal [facility] Comment on above: Performed By: #### L IPID, CMP, T7, FT3, TSH #### [facility] [address] [address] [address] Isi Britton HDL NORMAL > or = 60 mg/dl - LO W CARDIOVASCULAR RISK <40 mg/dl - HIGH CARDIOVASCULAR RISK Normal [facility] Comment on above: Performed By: #### L IPID, CMP, T7, FT3, TSH #### [facility] [address] [address] [address] Isi Britton LDL CALC NORMAL SEE BELOW Normal [facility] Comment on above: Result Comment: <100 mg/dl OPTIMAL 100 - 129 mg/dl NEAR OR ABOVE OPTIMAL 130 - 159 mg/dl BORDERLINE HIGH 160 - 189 mg/dl HIGH >190 mg/dl VERY HIGH Performed By: #### L IPID, CMP, T7, FT3, TSH #### [facility] [address] [address] [address] Isi Britton Triglyceride [Mass/Vol] 98 mg/dL Normal <=150 [facility] Comment on above: Performed By: #### L IPID, CMP, T7, FT3, TSH #### [facility] [address] [address] [address] Isi Britton VLDL CALC 19.6 mg/dL Normal [facility] Comment on above: Performed By: #### L IPID, CMP, T7, FT3, TSH #### [facility] [address] [address] [address] Isi Britton PROF 14(COMP METB)on 023 Albumin [Mass/Vol] 3.9 g/dL Normal 3.4-5.0 [facility] Comment on above: Performed By: #### L IPID, CMP, T7, FT3, TSH #### [facility] [address] [place] [address] Dr. Isi Britton Albumin/Globulin [Mass ratio] 1.2 {ratio} Normal [facility] Comment on above: Performed By: #### L IPID, CMP, T7, FT3, TSH #### [facility] [address] [place] [address] Dr. Isi Britton ALP [Catalytic activity/Vol] 99 U/L Normal 46-116 [facility] Comment on above: Performed By: #### L IPID, CMP, T7, FT3, TSH #### [facility] [address] [place] [address] Dr. Isi Britton ALT [Catalytic activity/Vol] 26 U/L Normal 14-59 [facility] Comment on above: Performed By: #### L IPID, CMP, T7, FT3, TSH #### [facility] [address] [place] [address] Dr. Isi Britton Anion gap [Moles/Vol] 13.1 mmol/L Normal [facility] Comment on above: Performed By: #### L IPID, CMP, T7, FT3, TSH #### [facility] [address] [place] [address] Dr. Isi Britton AST [Catalytic activity/Vol] 20 U/L Normal 15-37 [facility] Comment on above: Performed By: #### L IPID, CMP, T7, FT3, TSH #### [facility] [address] [place] [address] Dr. Isi Britton Bilirubin [Mass/Vol] 0.9 mg/dL Normal 0.2-1.0 [facility] Comment on above: Performed By: #### L IPID, CMP, T7, FT3, TSH #### [facility] [address] [address] [address] Isi Britton Calcium [Mass/Vol] 9.4 mg/dL Normal 8.5-10.1 [facility] Comment on above: Performed By: #### L IPID, CMP, T7, FT3, TSH #### [facility] [address] [address] [address] Isi Britton Chloride [Moles/Vol] 104 mmol/L Normal 98-107 [facility] Comment on above: Performed By: #### L IPID, CMP, T7, FT3, TSH #### [facility] [address] [place] [address] Dr. Isi Britton CO2 [Moles/Vol] 29.2 mmol/L Normal 21.0-32.0 [facility] Comment on above: Performed By: #### L IPID, CMP, T7, FT3, TSH #### [facility] [address] [place] [address] Dr. Isi Britton Creatinine [Mass/Vol] 1.36 mg/dL Critically high 0.55-1.02 [facility] Comment on above: Performed By: #### L IPID, CMP, T7, FT3, TSH #### [facility] [address] [place] [address] Dr. Isi Britton EGFR-AF NIUEAN 46 mL/min/1.73m2 Critically low >=60 [facility] Comment on above: Performed By: #### L IPID, CMP, T7, FT3, TSH #### [facility] [address] [place] [address] Dr. Isi Britton EGFR-NON AF NIUEAN 38 mL/min/1.73m2 Critically low >=60 [facility] Comment on above: Performed By: #### L IPID, CMP, T7, FT3, TSH #### [facility] [address] [place] [address] Dr. Isi Britton Globulin (S) [Mass/Vol] 3.3 g/dL Normal [facility] Comment on above: Performed By: #### L IPID, CMP, T7, FT3, TSH #### [facility] [address] [address] [address] Isi Britton Glucose [Mass/Vol] 107 mg/dL Critically high 74-106 [facility] Comment on above: Performed By: #### L IPID, CMP, T7, FT3, TSH #### [facility] [address] [address] [address] Isi Britton Potassium [Moles/Vol] 4.3 mmol/L Normal 3.5-5.1 [facility] Comment on above: Performed By: #### L IPID, CMP, T7, FT3, TSH #### [facility] [address] [place] [address] Dr. Isi Britton Protein [Mass/Vol] 7.2 g/dL Normal 6.4-8.2 [facility] Comment on above: Performed By: #### L IPID, CMP, T7, FT3, TSH #### [facility] [address] [place] [address] Dr. Isi Britton Sodium [Moles/Vol] 142 mmol/L Normal 136-145 [facility] Comment on above: Performed By: #### L IPID, CMP, T7, FT3, TSH #### [facility] [address] [place] [address] Dr. Isi Britton Urea nitrogen [Mass/Vol] 24.0 mg/dL Critically high 7.0-18.0 [facility] Comment on above: Performed By: #### L IPID, CMP, T7, FT3, TSH #### [facility] [address] [place] [address] Dr. Isi Britton Urea nitrogen/Creatinine [Mass ratio] 17.6 mg/mg Normal [facility] Comment on above: Performed By: #### L IPID, CMP, T7, FT3, TSH #### [facility] [address] [place] [address] Dr. Isi Britton TSHon 11-12-2022 TSH 1.802 uIU/mL Normal 0.358-3.740 [facility] Comment on above: Performed By: #### L IPID, CMP, T7, FT3, TSH #### [facility] [address] [place], [place] [address] Dr. Isi Britton Covid-19 PCR ([facility])on 09-11 SARS-CoV-2 (COVID-19) RNA ERICK+probe Ql (Unsp spec) Not detected Normal NOT DETECTED [facility] Comment on above: Result Comment: This test is not yet approved or cleared by the [place] FDA. When there are no FDA-approved or cleared tests available, and other criteria are met, FDA can make tests available under an emergency access mechanism called an Emergency Use Authorization (EUA). The EUA for this test is supported by the [place] of Health and Human Service's (HHS's) declaration [...] consistent with SARS-CoV-2. Performed By: #### [facility] ####[facility] [address] [place], [place] [address]MrDr. Isi Britton ECHOCARDIO M/2D COMPLETEon 1 09-09-2021 ECHOCARDIO M/2D COMPLETE Patient: SON HUBBARD Exam Date: 07/10/2022 : 1945 Gender:F Ordering : DR CLINTON DORAN M.D. Admission #: [id number] Family : DR PAT NEWELL . Order #: [id number] CLICK HERE TO VIEW EXAM ECHOCARDIOGRAM REPORT [...] Rebeka Johnson M.D. on 07/10/2022 at 15:37 Normal [facility] ANES POSTPROC EVALon 05- 022 ANES POSTPROC EVAL HNO ID: [id number] Author: Abner Cox II, DO Service: Anesthesiology Author Type: Anesthesiologist Type: Anesthesia Postprocedure Evaluation Filed: 05/15/2022 11:10 AM Note Text: POST ANESTHESIA EVALUATION NOTE : 1945 Procedure Summary Date: 05/15/22 Room / Location: [address] Anesthesia Start: 928 Anesthesia Stop: 949 [...] May 15, 2022 TIME: 11:10 AM CSN: [id number] Normal [facility] ANES PRE-OPon 05-15-2022 ANES PRE-OP HNO ID: [id number] Author: Abner Cox II, DO Service: Anesthesiology Author Type: Anesthesiologist Type: Anesthesia Preprocedure Evaluation Filed: 05/15/2022 8:52 AM Note Text: ANESTHESIOLOGY DAY OF SURGERY NOTE : 1945 Procedure Information Date/Time: 05/15/22 0930 Procedures: PHACOEMULSIFICATION CATARACT IMPLANT INTRAOCULAR LENS W/O ENDOSCOPIC CYCLOPHOTOCOAGULATION (Right: Eye) OPHTHALMIC BIOMETRY BY PARTIAL COHERENCE INTERFEROMETRY W/INTRAOCULAR LENS POWER CALCULATION (Right: Eye) Location: [address] Surgeons: Mylene Almeida V, MD Estimated [...] and consent discussed: yes. Patient / Responsible Democrat agrees to proceed: yes Patient / Surrogate [...] May 15, 2022 TIME: 8:51 AM CSN: [id number] [facility] OPERATIVE NOon 05-15-2022 OPERATIVE NO HNO ID: [id number] Author: Mylene Almeida V, MD Service: Ophthalmology Author Type: Physician Type: Operative Report Filed: 05/15/2022 9:46 AM Note Text: OPERATIVE REPORT DATE OF SERVICE: May 15, 2022 PRIMARY SURGEON: Mylene Almeida M.D. LITHOGRAPHIC CAMERA OPERATOR: None Procedure(s) (LRB): PHACOEMULSIFICATION CATARACT IMPLANT [...] corneal incision was created temporally with a [place] blade then a 2.4 mm keratome. The [...] Implant Name Type Inv. Item Serial No. Boiler/Chiller Operator Lot No. LRB No. Used Action Model No. LENS IOL 0D +18 TALAT UV ABS - [id number] Intraocular Lens LENS IOL 0D +18 TALAT UV ABS [id number] SHRAVAN [employer] Right 1 Implanted [id number] was inserted [...] 9:44 AM - Comanage with Dr Wilson; [facility] POD #1 Mylene ALMEIDA MD [facility] ANES POSTPROC EVALon 022 ANES POSTPROC EVAL HNO ID: [id number] Author: Cristian Parker MD Service: Anesthesiology Author Type: Anesthesiologist Type: Anesthesia Postprocedure Evaluation Filed: 05/01/2022 11:15 AM Note Text: POST ANESTHESIA EVALUATION NOTE : 1945 Procedure Summary Date: 05/01/22 Room / Location: [address] Anesthesia Start: 4 Anesthesia Stop: 1103 [...] May 01, 2022 TIME: 11:14 AM CSN: [id number] Normal [facility] ANES PRE-OPon 05-01-2022 ANES PRE-OP HNO ID: [id number] Author: Cristian Parker MD Service: Anesthesiology Author Type: Anesthesiologist Type: Anesthesia Preprocedure Evaluation Filed: 05/01/2022 10:04 AM Note Text: ANESTHESIOLOGY DAY OF SURGERY NOTE : 1945 Procedure Information Date/Time: 05/01/22 1030 Procedures: PHACOEMULSIFICATION CATARACT IMPLANT INTRAOCULAR LENS W/O ENDOSCOPIC CYCLOPHOTOCOAGULATION (Left: Eye) OPHTHALMIC BIOMETRY BY PARTIAL COHERENCE INTERFEROMETRY W/INTRAOCULAR LENS POWER CALCULATION (Left: Eye) Location: [place] [address] / [facility] Surgeons: Mylene Almeida V, MD Estimated body [...] and consent discussed: yes. Patient / Responsible Democrat agrees to proceed: yes Patient / Surrogate [...] within 48 hours of Surgery/Procedure. SIGNATURE: Cristian Praker MD PATIENT NAME: Son Hubbard DATE: May 01, 2022 TIME: 10:03 AM CSN: [id number] [facility] NURSING PROGon 05-01-2022 NURSING PROG HNO ID: [id number] Author: Deepika Stephen RN Service: ? Author [...] Deepika Stephen RN In Department: AMBULATORY SURGERY [facility] OPERATIVE NOon 05-01-2022 OPERATIVE NO HNO ID: [id number] Author: Mylene Almeida V, MD Service: Ophthalmology Author Type: Physician Type: Operative Report Filed: 05/01/2022 11:01 AM Note Text: OPERATIVE REPORT DATE OF SERVICE: May 01, 2022 PRIMARY SURGEON: Mylene Almeida M.D. LITHOGRAPHIC CAMERA OPERATOR: None Procedure(s) (LRB): PHACOEMULSIFICATION CATARACT IMPLANT [...] corneal incision was created temporally with a [place] blade then a 2.4 mm keratome. The [...] Implant Name Type Inv. Item Serial No. Boiler/Chiller Operator Lot No. LRB No. Used Action Model No. LENS IOL 0D +19.5 TALAT UV ABS - [id number] Intraocular Lens LENS IOL 0D +19.5 TALAT UV ABS [id number] [employer] Left 1 Implanted [id number] [...] 10:59 AM - Comanage with Dr Wilson; [facility] POD #1 Mylene ALMEIDA MD [facility] HISTORY PHYSICALon HISTORY PHYSICAL HNO ID: [id number] Author: Chantal Can APRN.CLINICAL SERVICES MANAGER Service: ? Author Type: Nurse Practitioner Type: [...] fevers. Neuro: No history of TIA's, stroke, [employer] tumor, impaired sensorium, hemiplegia, paraplegia or quadraplegia. No neurological symptoms or problems. Respiratory: No history of current cough or dyspnea, or pneumonia in the past 6 weeks. No history of respiratory/pulmonary symptoms or problems. Cardiovascular: Negative for Recent VT, Angina, Arrhythmia, Chest Pain, PVD, Valvular Heart Disease, DVT/PE +HTN +HLD +CAD 03/2020 AND 06/2020- [facility]: Negative for Nausea, Vomiting, Abdominal pain, Hepatitis, Liver disease, Inflammatory bowel disease +GERD : No history of dysuria, frequency or incontinence,, stones or chronic kidney disease COLORER: Negative for abnormal vaginal bleeding, abnormal vaginal [...] S1 AN (more content not included)... Normal [facility] Covid-19 PCR ([facility])on 03-12 SARS-CoV-2 (COVID-19) RNA ERICK+probe Ql (Unsp spec) Not detected Normal NOT DETECTED [facility] Comment on above: Result Comment: This test is not yet approved or cleared by the [place] FDA. When there are no FDA-approved or cleared tests available, and other criteria are met, FDA can make tests available under an emergency access mechanism called an Emergency Use Authorization (EUA). The EUA for this test is supported by the [place] of Health and Human Service's (HHS's) declaration [...] consistent with SARS-CoV-2. Performed By: #### C [facility] #### [facility] [address] [place] [address] Dr. Isi Birmingham 01-11-2022 CNPN Telephone (OPHTLN) SON HUBBARD ([id number]) 1945 F Date Time Provider Department 01/11/22 MYLENE ALMEIDA During your visit today, we recorded the following information about you: Hernan Vences 01/11/2022 11:37 AM Signed LVM for patient to schedule at Cataract Evaluation with Dr. Almeida in [place] per faxed referral from Dr. Wilson. First [...] with Dr. Almeida for March 07 in [place] Allergies As of Date: 01/11/2022 Noted Allergy [...] Status:Closed by HERNAN VENCES on 01/16/[address] [facility] C REACTIVE PROTEINon 021 CRP [Mass/Vol] 5.1 mg/L Normal 0.0-7.0 [facility] Comment on above: Performed By: #### 6 1405 #### [address] CERVICAL SPINE 2 OR 3 [facility] 03-12-2021 CERVICAL SPINE 2 OR 3 [facility] Department of Radiology [address] [place] [phone] ===== Patient Name: SON HUBBARD : 1945 Sex: F Age: Race: White Pt. Location: [facility] Patient Status: D Ordered Date: 03/12/2021 4:00:00 PM Completed Date: 03/12/2021 04:25 PM Requesting Provider: REZA HARVEY Attending Provider: REZA HARVEY Report Copy To: Signs & Symptoms: M54.2 Cervicalgia I10 History: Radhika Comments: Exam: CERVICAL SPINE [address] [facility] ===== CERVICAL SPINE [address] [facility] 03/12/2021 4:25 PM CLINICAL INDICATIONS: M54.2 Cervicalgia [...] curvature. Electronically signed: Rosendo Salvador. Transcribed by: [email or web address], User Resident: Electronically Signed by: ROSENDO SALVADOR @ 03/13/2021 08:58 AM Normal [facility] LUMBAR SPINE 2 OR 3 [facility] LUMBAR SPINE 2 OR 3 [facility] Department of Radiology [address] [place] [phone] ===== Patient Name: SON HUBBARD : 1945 Sex: F Age: Race: White Pt. Location: 264 Patient Status: D Ordered Date: 03/12/2021 4:00:00 PM Completed Date: 03/12/2021 04:25 PM Requesting Provider: REZA HARVEY Attending Provider: REZA HARVEY Report Copy To: Signs & Symptoms: M54.5 Low back pain I10 History: Garland Comments: Exam: LUMBAR SPINE [address] [facility] ===== LUMBAR SPINE [address] [facility] 03/12/2021 4:25 PM CLINICAL INDICATIONS: M54.5 Low [...] levels. Electronically signed: Rosendo Salvador. Transcribed by: [email or web address], User Resident: Electronically Signed by: ROSENDO SALVADOR @ 03/13/2021 10:49 AM Normal [facility] S-I JOINTS MIN 4 [facility] 03-12 S-I JOINTS MIN 4 [facility] Department of Radiology [address] [place] [phone] ===== Patient Name: SON HUBBARD : 1945 Sex: F Age: Race: White Pt. Location: [facility] Patient Status: D Ordered Date: 03/12/2021 4:00:00 PM Completed Date: 03/12/2021 04:25 PM Requesting Provider: REZA HARVEY Attending Provider: REZA HARVEY Report Copy To: Signs & Symptoms: M54.5 Low back pain I10 History: [place] Comments: Exam: S-I JOINTS MIN 4 V[facility] [...] vertebral segment. Approved by:Harrison Ayon03/13/2021 9:10 AM. IBrisa,have reviewed the image(s) and agree with the findings in this report. Electronically signed: Brisa Jackson. Transcribed by: [email or web address], User Resident: HARRISON HUNTER Electronically Signed by: BRISA JACKSON @ 03/13/2021 10:46 AM I personally read this/these film(s) with this resident Normal [facility] SEDIMENTATION RATEon 021 SED RATE 37 mm/hr High 0-20 [facility] Comment on above: Performed By: #### 5 6506 #### [facility] [address] [facility]. [address] Cardiovascular Lab Reporton 05-12-2020 Cardiovascular Lab Report [facility] Patient Name: Son Hubbard [facility] MR #: [id number] Physician: Clinton Pham Department of Cornelio Doran Medicine Service Date: 05/11/2020 Division of Birthdate: 1945 Cardiology Room #: Adult Cardiovascular Services [facility] [address] [address] Cardiovascular Laboratory Report INDICATION: The patient is a 75-year-old woman, who recently was evaluated in Cardiology Clinic because of a class 3 heart failure symptoms. She was evaluated by initially an echocardiography, then a transesophageal echocardiogram that showed [id number] mitral regurgitation and mild aortic valve regurgitation. [...] signed informed consent. She was brought to cath lab radiology technician in a fasting state. Modified Dom's test was favorable on the left. Access in the left radial artery was obtained using micropuncture technique. A 6-Cameroonian x 11 cm Hydrophilic sheath was advanced. [...] coronary artery. This was exchanged to a 6-Cameroonian AR2 guiding catheter followed by a 6-Cameroonian AL1 guiding catheter, which was able to engage the right coronary artery. Initial angiography was performed. A JobPlanet wire was advanced into the distal RCA. An Emerge 3.0 x 15 mm balloon was used to perform balloon dilatation at 8 atmospheres in the proximal RCA. Angiography revealed suboptimal results, this was treated using a Synergy 3.0 x 20 mm drug-eluting stent deployed at 12 atmospheres and post dilated using [place] [employer] [place] [facility] 3.0 x 15 mm noncompliant balloon inflated [...] P Clinton Doran M.D. Date Dict: 05/11/2020/01:56 Star/Clinton Doran M.D. Date Trans: 05/12/2020 06:46 Tommy/cale [id number] cc: Pat Newell M.D. [address] [place] [phone] Normal [facility] BNP (B-TYPE NATRIURETIC PEPT EFE)on 04-05-2020 Natriuretic peptide B (Bld) [Mass/Vol] 26 pg/mL Normal 0-100 [facility] Comment on above: Order Comment: No: D o not add to previous draw Result Comment: Give n the appropriate clinical setting a BNP result of >100 pg/mL indicates congestive heart failure. Performed By: #### 8 5123 #### [facility] [address] CBC COMPLETE BLOOD COUNTon 0 04-05-2020 Erythrocyte distribution width (RBC) [Ratio] 13.1 % Normal 11.5-15.0 [facility] Comment on above: Order Comment: No: D o not add to previous draw Performed By: #### 5 0608 #### [facility] [address] [facility] [place] [address], [facility] Hematocrit (Bld) [Volume fraction] 42.1 % Normal 36.0-45.0 [facility] Comment on above: Order Comment: No: D o not add to previous draw Performed By: #### 5 0608 #### [facility] [address] [place] [address], [facility] Hemoglobin (Bld) [Mass/Vol] 14.3 g/dL Normal 12.0-15.0 [facility] Comment on above: Order Comment: No: D o not add to previous draw Performed By: #### 5 0608 #### [facility] [address] [place] [address], [facility] MCH (RBC) [Entitic mass] 31.0 pg Normal 27.0-33.0 [facility] Comment on above: Order Comment: No: D o not add to previous draw Performed By: #### 5 0608 #### [facility] [address] [place] [address], [facility] MCHC (RBC) [Mass/Vol] 34.0 g/dL Normal 32.0-35.0 [facility] Comment on above: Order Comment: No: D o not add to previous draw Performed By: #### 5 0608 #### [facility] [address] [place] [address], [facility] MCV (RBC) [Entitic vol] 91.3 fL Normal 82.0-98.0 [facility] Comment on above: Order Comment: No: D o not add to previous draw Performed By: #### 5 0608 #### [facility] [address] Nucleated RBC/100 WBC (Bld) [Ratio] 0 % Normal 0-0 [facility] Comment on above: Order Comment: No: D o not add to previous draw Performed By: #### 5 0608 #### [facility] [address] [facility] [place] [address], [facility] PLAT CNT 249 10*3/uL Normal 150-400 [facility] Comment on above: Order Comment: No: D o not add to previous draw Performed By: #### 5 0608 #### [facility] [address] [facility] [place] [address], [facility] RBC (Bld) [#/Vol] 4.61 10*6/uL Normal 3.80-5.00 [facility] Comment on above: Order Comment: No: D o not add to previous draw Performed By: #### 5 0608 #### [facility] [address] [place] [address], [facility] WBC (Bld) [#/Vol] 6.32 10*3/uL Normal 4.00-10.60 The [facility] Comment on above: Order Comment: No: D o not add to previous draw Performed By: #### 5 0608 #### [facility] [address] [place] [address], [facility] Erythrocyte distribution width (RBC) [Ratio] 13.0 % Normal 11.5-15.0 [facility] Comment on above: Order Comment: No: D o not add to previous draw Performed By: #### 5 0608 #### [facility] [address] [place] [address], [facility] Hematocrit (Bld) [Volume fraction] 40.2 % Normal 36.0-45.0 [facility] Comment on above: Order Comment: No: D o not add to previous draw Performed By: #### 5 0608 #### [facility] [address] [place] [address], [facility] Hemoglobin (Bld) [Mass/Vol] 13.7 g/dL Normal 12.0-15.0 [facility] Comment on above: Order Comment: No: D o not add to previous draw Performed By: #### 5 0608 #### [facility] [address] [place] [id number], [facility] MCH (RBC) [Entitic mass] 31.4 pg Normal 27.0-33.0 [facility] Comment on above: Order Comment: No: D o not add to previous draw Performed By: #### 5 0608 #### [facility] [address] [place] [address], [facility] MCHC (RBC) [Mass/Vol] 34.1 g/dL Normal 32.0-35.0 [facility] Comment on above: Order Comment: No: D o not add to previous draw Performed By: #### 5 0608 #### [facility] [address] [place] [address], [facility] MCV (RBC) [Entitic vol] 92.0 fL Normal 82.0-98.0 [facility] Comment on above: Order Comment: No: D o not add to previous draw Performed By: #### 5 0608 #### [facility] [address] [facility]. [address] Nucleated RBC/100 WBC (Bld) [Ratio] 0 % Normal 0-0 [facility] Comment on above: Order Comment: No: D o not add to previous draw Performed By: #### 5 0608 #### [facility] [address] [place] [address], [facility] PLAT CNT 209 10*3/uL Normal 150-400 [facility] [facility] Comment on above: Order Comment: No: D o not add to previous draw Performed By: #### 5 0608 #### [facility] [address] RBC (Bld) [#/Vol] 4.37 10*6/uL Normal 3.80-5.00 [facility] Comment on above: Order Comment: No: D o not add to previous draw Performed By: #### 5 0608 #### [facility] [address] [place] [address], [facility] WBC (Bld) [#/Vol] 5.97 10*3/uL Normal 4.00-10.60 [facility] Comment on above: Order Comment: No: D o not add to previous draw Performed By: #### 5 0608 #### [facility] [address] TROPONIN-Ion 04-05-2020 Troponin I.cardiac [Mass/Vol] 0.07 ng/mL High 0.00-0.04 [facility] Comment on above: Order Comment: This order is a replacement of the rejected order with accession number [id number]. Result Comment: REFE RENCE RANGES: 0.00 - 0.04 ng/ml NORMAL 0.05 - 0.50 ng/ml INDETERMINATE > 0.50 ng/ml CONSISTENT WITH AN M.I. Performed By: #### 3 [id number] #### [facility] [address] [facility]. [address] Cardiovascular Lab Reporton 04-04-2020 Cardiovascular Lab Report [facility] Patient Name: Son Hubbard [facility] S MR #: [id number] Department of Physician: Clinton Ankit Jerri Doran M.D. Division of Service Date: 04/04/2020 Cardiology Birthdate: 1945 Adult Cardiovascular Room #: [facility] [address] [facility]. [place], [place] [address] Cardiovascular Laboratory Report INDICATION: Son Hubbard is a 75-year-old woman, who was recently evaluated in Cardiology Clinic after a recent admission to the [facility] with acute onset shortness of breath and finding on echocardiogram of possible severe mitral regurgitation. She continued to be symptomatic and was referred for further investigation of her recent onset symptoms by a transesophageal echocardiography that showed evidence of [id number] mitral regurgitation. She was then referred for [...] informed consent. She was brought to the cath lab radiology technician in a fasting state. The right neck area was prepped and draped in the usual fashion. Using micropuncture technique and ultrasound guidance, the right internal jugular vein was accessed. A 6-Cameroonian x 11 cm sheath was placed. A 6-Cameroonian Mendez catheter was used for right catheterization with measurement of pressures and calculation of cardiac output using the estimated Elizabeth method. Mendez catheter was removed. Modified Dom's test was favorable on the right. Access in the right radial artery was obtained using micropuncture technique. A 6-Cameroonian x 11 cm Hydrophilic sheath was advanced. Verapamil was given through the sheath and heparin was administered intravenously. Bilateral selective coronary angiography was then performed using 5-Cameroonian JR5 and 5-Cameroonian multipurpose catheters for engagement of the right coronary artery and a 5-Cameroonian JL3.5 diagnostic catheter for engagement of the left coronary artery. Catheters were removed. Additional heparin was given as needed and therapeutic ACT confirmed during the rest of the procedure. A 6-Cameroonian XB3.0 guiding catheter was advanced and used [...] 11 atmospheres and post dilated using [place] [facility] 3.25 x 12 mm noncompliant balloon inflated [...] 2- (more content not included)... Normal [facility] *SARS-CoV-2 COVID-19on 03-31 SARS-CoV-2 (COVID-19) RNA ERICK+probe Ql (Unsp spec) Not detected Normal Not Detected [facility] Comment on above: Order Comment: The A ptima SARS-CoV-2 assay is a nucleic acid amplification test intended for the qualitative detection of RNA from SARS-CoV-2 isolated and purified from nasopharyngeal (GAS CONTROLLER),oropharyngeal (OP), nasal swab, sputum, and bronchoalveolar lavage (BAL) specimens from patients with signs and symptoms of infection who are suspected of COVID-19. Results are for the identification of SARS-CoV-2 RNA. The SARS-CoV-2 RNA is generally detectable during the acute phase of infection. The Aptima SARS-CoV-2 Assay on the MobiPixie and Nebo Fusion system is intended for use by laboratory personnel specifically instructed and trained in the operation of the Nebo and Nebo Fusion system. The Aptima SARS-CoV-2 assay is [...] information. Performed By: #### 3 [id number] #### [facility] [address] [facility] [place] [place] [address], [facility] CONSULTATIONon 03-02-[address] [address] CONSULTATION PATIENT NAME: SON HUBBARD : 1945 MED REC NO: [id number] ROOM: R254 ACCOUNT NO: [id number] ADMIT DATE: 02/24/2019 PROVIDER: Francis Holguin MD [...] and S2 are normal. No murmurs appreciated. [employer] EXAMINATION: Pupils are equal and reactive. Eye [...] the patient. FRANCIS HOLGUIN MD [id number] Doc#: [id number] CC: Normal [facility] Homocysteineon 03-02-2019 Homocysteine 14.5 umol/L Normal 0.0-15.0 [facility] Comment on above: Performed By: #### P T #### [facility] [address] [place] [address] TSH w/out Reflexon 9 TSH Qn 3.890 uIU/mL Critically high 0.440-3.86 [facility] Comment on above: Performed By: #### P T #### [facility] [address] [place] [address] Vitamin B12 and Folateon Cobalamin (Vitamin B12) [Mass/Vol] 537 pg/mL Normal 232-1245 [facility] Comment on above: Performed By: #### P T #### [facility] [address] [place] [address] Folate 11.6 ng/mL Normal 7.3-26.1 [facility] Comment on above: Result Comment: As o f 16, the methodology has changed. Results from this methodology should not be compared with results from previous methodology. Performed By: #### P T #### [facility] [address] [place] [address] Urinalysis, reflex to cultur erik 02-28-2019 Bilirubin Ql (U) Negative Normal Negative [facility] Comment on above: Performed By: #### B MP #### [facility] [address] [place] [address] Clarity (U) Clear Normal Clear [facility] Comment on above: Performed By: #### B MP #### [facility] [address] [place] [address] Color (U) Yellow Normal Straw/[place]orain [facility] Comment on above: Performed By: #### B MP #### [facility] [address] [place] [address] Glucose Ql (U) Negative Normal Negative [facility] Comment on above: Performed By: #### B MP #### [facility] [address] [place] [address] Hemoglobin Ql (U) Negative Normal Negative [facility] Comment on above: Performed By: #### B MP #### [facility] [address] [place] [address] Ketones Ql (U) Negative Normal Negative [facility] Comment on above: Performed By: #### B MP #### [facility] [address] [place] [address] Leukocyte esterase Test strip Ql (U) Negative Normal Negative [facility] Comment on above: Performed By: #### B MP #### [facility] [address] [place] [address] Nitrite Ql (U) Negative Normal Negative [facility] Comment on above: Performed By: #### B MP #### [facility] [address] [place] [address] pH (U) 7.0 [pH] Normal 5.0-9.0 [facility] Comment on above: Performed By: #### B MP #### [facility] [address] [place] [address] Protein Ql (U) Negative Normal Negative [facility] Comment on above: Performed By: #### B MP #### [facility] [address] [place] [address] Specific gravity (U) [Rel density] 1.007 Normal 1.005-1.03 [facility] Comment on above: Performed By: #### B MP #### [facility] [address] [place] [address] Urine Reflexed to Culture Not Indicated Normal [facility] Comment on above: Performed By: #### B MP #### [facility] [address] [place] [address] Urobilinogen Qn (U) 0.2 {Tyrel'U}/dL Normal < 2.0 [facility] Comment on above: Performed By: #### B MP #### [facility] [address] [place] [address] CBC With Platelet No Differe ntialon 02-25-2019 Erythrocyte distribution width (RBC) [Ratio] 13.5 % Normal 11.5-14.5 [facility] Comment on above: Performed By: #### B MP #### [facility] [address] [place] [address] Hematocrit (Bld) [Volume fraction] 33.3 % Low 37.0-47.0 [facility] Comment on above: Performed By: #### B MP #### [facility] [address] [place] [address] Hemoglobin (Bld) [Mass/Vol] 11.7 g/dL Low 12.0-16.0 [facility] Comment on above: Performed By: #### B MP #### [facility] [address] [place] [address] MCH (RBC) [Entitic mass] 33.0 pg Critically high 27.0-31.3 [facility] Comment on above: Performed By: #### B MP #### [facility] [address] [place] [address] MCHC (RBC) [Mass/Vol] 35.1 % Normal 33.0-37.0 [facility] Comment on above: Performed By: #### B MP #### [facility] [address] [place] [address] MCV (RBC) [Entitic vol] 94.1 fL Normal 82.0-100.0 [facility] Comment on above: Performed By: #### B MP #### [facility] [address] [place] [address] Platelets (Bld) [#/Vol] 180 10*3/uL Normal 130-400 [facility] Comment on above: Performed By: #### B MP #### [facility] [address] [place] [address] RBC (Bld) [#/Vol] 3.54 10*6/uL Low 4.20-5.40 [facility] Comment on above: Performed By: #### B MP #### [facility] [address] [place] [address] WBC (Bld) [#/Vol] 12.1 10*3/uL Critically high 4.8-10.8 [facility] Comment on above: Performed By: #### B MP #### [facility] [address] [place] [address] Basic Metabolic Panel Reflex Mgon 02-24-2019 Anion gap [Moles/Vol] 13 mmol/L Normal 9-15 [facility] Comment on above: Performed By: #### B MP #### [facility] [address] [place] [address] Calcium [Mass/Vol] 8.8 mg/dL Normal 8.5-9.9 [facility] Comment on above: Performed By: #### B MP #### [facility] [address] [place] [address] Chloride [Moles/Vol] 100 mmol/L Normal 95-107 [facility] Comment on above: Performed By: #### B MP #### [facility] [address] [place] [address] CO2 [Moles/Vol] 24 mmol/L Normal 20-31 [facility] Comment on above: Performed By: #### B MP #### [facility] [address] [place] [address] Creatinine [Mass/Vol] 0.96 mg/dL Critically high 0.50-0.90 [facility] Comment on above: Performed By: #### B MP #### [facility] [address] [place] [address] GFR/1.73 sq M predicted among blacks MDRD (S/P/Bld) [Vol rate/Area] mL/min/{1.73_m2} Normal >60 [facility] Comment on above: Result Comment: >60 mL/min/1.73m2 EGFR, calc. for ages 18 and older using the MDRD formula (not corrected for weight), is valid for stable renal function. Performed By: #### B MP #### [facility] [address] [place] [address] GFR/1.73 sq M.predicted MDRD (S/P/Bld) [Vol rate/Area] 57.0 mL/min/{1.73_m2} Low >60 [facility] Comment on above: Result Comment: >60 mL/min/1.73m2 EGFR, calc. for ages 18 and older using the MDRD formula (not corrected for weight), is valid for stable renal function. Performed By: #### B MP #### [facility] [address] [place] [address] Glucose [Mass/Vol] 146 mg/dL Critically high 70-99 M [facility] Comment on above: Performed By: #### B MP #### [facility] [address] [place] [address] Potassium reflex Mg 5.4 mEq/L Critically high 3.4-4.9 [facility] Comment on above: Performed By: #### B MP #### [facility] [address] [place] [address] Sodium [Moles/Vol] 137 mmol/L Normal 135-144 [facility] Comment on above: Performed By: #### B MP #### [facility] [address] [place] [address] Urea nitrogen [Mass/Vol] 18 mg/dL Normal 8-23 [facility] Comment on above: Performed By: #### B MP #### [facility] [address] [place] [address] CBC With Platelet and Differ entialon 02-24-2019 Basophils (Bld) [#/Vol] 0.0 10*3/uL Normal 0.0-0.2 [facility] Comment on above: Performed By: #### C BCWD #### [facility] [address] [place] [address] Basophils/100 WBC (Bld) 0.1 % Normal [facility] Comment on above: Performed By: #### C BCWD #### [facility] [address] [place] [address] Eosinophils (Bld) [#/Vol] 0.0 10*3/uL Normal 0.0-0.7 [facility] Comment on above: Performed By: #### C BCWD #### [facility] [address] [place] [address] Eosinophils/100 WBC (Bld) 0.0 % Normal [facility] Comment on above: Performed By: #### C BCWD #### [facility] [address] [place] [address] Erythrocyte distribution width (RBC) [Ratio] 13.4 % Normal 11.5-14.5 [facility] Comment on above: Performed By: #### C BCWD #### [facility] [address] [place] [address] Hematocrit (Bld) [Volume fraction] 34.6 % Low 37.0-47.0 [facility] Comment on above: Performed By: #### C BCWD #### [facility] [address] [place] [address] Hemoglobin (Bld) [Mass/Vol] 12.0 g/dL Normal 12.0-16.0 [facility] Comment on above: Performed By: #### C BCWD #### [facility] [address] [place] [address] Lymphocytes (Bld) [#/Vol] 0.9 10*3/uL Low 1.0-4.8 [facility] Comment on above: Performed By: #### C BCWD #### [facility] [address] [place] [address] Lymphocytes/100 WBC (Bld) 6.5 % Normal [facility] Comment on above: Performed By: #### C BCWD #### [facility] [address] [place] [address] MCH (RBC) [Entitic mass] 32.3 pg Critically high 27.0-31.3 [facility] Comment on above: Performed By: #### C BCWD #### [facility] [address] [place] [address] MCHC (RBC) [Mass/Vol] 34.7 % Normal 33.0-37.0 [facility] Comment on above: Performed By: #### C BCWD #### [facility] [address] [place] [address] MCV (RBC) [Entitic vol] 93.2 fL Normal 82.0-100.0 [facility] Comment on above: Performed By: #### C BCWD #### [facility] [address] [place] [address] Monocytes (Bld) [#/Vol] 1.4 10*3/uL Critically high 0.2-0.8 [facility] Comment on above: Performed By: #### C BCWD #### [facility] [address] [place] [address] Monocytes/100 WBC (Bld) 10.2 % Normal [facility] Comment on above: Performed By: #### C BCWD #### [facility] [address] [place] [address] Neutrophils (Bld) [#/Vol] 11.3 10*3/uL Critically high 1.4-6.5 [facility] Comment on above: Performed By: #### C BCWD #### [facility] [address] [place] [address] Neutrophils/100 WBC (Bld) 83.2 % Normal [facility] Comment on above: Performed By: #### C BCWD #### [facility] [address] [place] [address] Platelets (Bld) [#/Vol] 208 10*3/uL Normal 130-400 [facility] Comment on above: Performed By: #### C BCWD #### [facility] [address] [place] [address] RBC (Bld) [#/Vol] 3.71 10*6/uL Low 4.20-5.40 [facility] Comment on above: Performed By: #### C BCWD #### [facility] [address] [place] [address] WBC (Bld) [#/Vol] 13.7 10*3/uL Critically high 4.8-10.8 [facility] Comment on above: Performed By: #### C BCWD #### [facility] [address] [place] [address] Culture, Urineon 02-24-2019 Culture, Urine ORDERED BY: CHRISTIE REED SOURCE: Urine Clean Catch COLLECTED: 02/24/19 17:31 ANTIBIOTICS AT ELISEO.: RECEIVED : 02/24/19 17:31 Culture, Urine FINAL 02/26/19 08:22 No growth 24 hours Normal [facility] Comment on above: Performed By: #### B MP #### [facility] [address] [place] [address] POCT Glucoseon 02-24-2019 Glucose [Mass/Vol] 133 mg/dL Critically high 60-115 M [facility] Comment on above: Performed By: #### B MP #### [facility] [address] [place] [address] POC Performed on ACCU-CHEK Normal [facility] Comment on above: Performed By: #### B MP #### [facility] [address] [place] [address] Urinalysis, reflex to cultur erik 02-24-2019 Bilirubin Ql (U) Negative Normal Negative [facility] Comment on above: Performed By: #### B MP #### [facility] [address] [place] [address] Clarity (U) Clear Normal Clear [facility] Comment on above: Performed By: #### B MP #### [facility] [address] [place] [address] Color (U) Yellow Normal Straw/[place]or[facility] Comment on above: Performed By: #### B MP #### [facility] [address] [place] [address] Glucose Ql (U) Negative Normal Negative [facility] Comment on above: Performed By: #### B MP #### [facility] [address] [place] [address] Hemoglobin Ql (U) SMALL Abnormal Negative [facility] Comment on above: Performed By: #### B MP #### [facility] [address] [place] [address] Ketones Ql (U) Negative Normal Negative [facility] Comment on above: Performed By: #### B MP #### [facility] [address] [place] [address] Leukocyte esterase Test strip Ql (U) TRACE Abnormal Negative [facility] Comment on above: Performed By: #### B MP #### [facility] [address] [place] [address] Nitrite Ql (U) Negative Normal Negative [facility] Comment on above: Performed By: #### B MP #### [facility] [address] [place] [address] pH (U) 6.0 [pH] Normal 5.0-9.0 [facility] Comment on above: Performed By: #### B MP #### [facility] [address] [place] [address] Protein Ql (U) Negative Normal Negative [facility] Comment on above: Performed By: #### B MP #### [facility] [address] [place] [address] Specific gravity (U) [Rel density] 1.010 Normal 1.005-1.03 [facility] Comment on above: Performed By: #### B MP #### [facility] [address] [place] [address] Urine Reflexed to Culture YES Normal [facility] Comment on above: Performed By: #### B MP #### [facility] [address] [place] [address] Urobilinogen Qn (U) 0.2 {Tyrel'U}/dL Normal < 2.0 [facility] Comment on above: Performed By: #### B MP #### [facility] [address] [place] [address] Urine Microscopicon 02-25-20 19 Bacteria LM.HPF (Urine sed) [#/Area] Negative Normal [facility] Comment on above: Performed By: #### B MP #### [facility] [address] [place] [address] RBC (U) [#/Vol] 0-2 Normal 0-5 [facility] Comment on above: Performed By: #### B MP #### [facility] [address] [place] [address] Urine Epithelial Cells Auto 3-5 Normal 0-5 [facility] Comment on above: Performed By: #### B MP #### [facility] [address] [place] [address] Urine Hyaline Casts Auto 0-1 Normal 0-5 [facility] Comment on above: Performed By: #### B MP #### [facility] [address] [place] [address] Urine WBC Auto 6-10 Abnormal 0-5 [facility] Comment on above: Performed By: #### B MP #### [facility] [address] [place] [address] XR LUMBAR SPINE (2-3 VIEWS)o n 02-24-2019 [...] Ramón Bonds MD 02/24/19 Final result Normal [facility] Basic Metabolic Panel Reflex Mgon 02-23-2019 Anion gap [Moles/Vol] 14 mmol/L Normal 9-15 [facility] Comment on above: Performed By: #### B MPX #### [facility] [address] [place] [address] Calcium [Mass/Vol] 9.1 mg/dL Normal 8.5-9.9 [facility] Comment on above: Performed By: #### B MPX #### [facility] [address] [place] [address] Chloride [Moles/Vol] 106 mmol/L Normal 95-107 [facility] Comment on above: Performed By: #### B MPX #### [facility] [address] [place] [address] CO2 [Moles/Vol] 20 mmol/L Normal 20-31 [facility] Comment on above: Performed By: #### B MPX #### [facility] [address] [place] [address] Creatinine [Mass/Vol] 0.96 mg/dL Critically high 0.50-0.90 [facility] Comment on above: Performed By: #### B MPX #### [facility] [address] [place] [address] GFR/1.73 sq M predicted among blacks MDRD (S/P/Bld) [Vol rate/Area] mL/min/{1.73_m2} Normal >60 [facility] Comment on above: Result Comment: >60 mL/min/1.73m2 EGFR, calc. for ages 18 and older using the MDRD formula (not corrected for weight), is valid for stable renal function. Performed By: #### B MPX #### [facility] [address] [place] [address] GFR/1.73 sq M.predicted MDRD (S/P/Bld) [Vol rate/Area] 57.0 mL/min/{1.73_m2} Low >60 [facility] Comment on above: Result Comment: >60 mL/min/1.73m2 EGFR, calc. for ages 18 and older using the MDRD formula (not corrected for weight), is valid for stable renal function. Performed By: #### B MPX #### [facility] [address] [place] [address] Glucose [Mass/Vol] 139 mg/dL Critically high 70-99 M [facility] Comment on above: Performed By: #### B MPX #### [facility] [address] [place] [address] Potassium reflex Mg 4.6 mEq/L Normal 3.4-4.9 [facility] Comment on above: Performed By: #### B MPX #### [facility] [address] [place] [address] Sodium [Moles/Vol] 140 mmol/L Normal 135-144 [facility] Comment on above: Performed By: #### B MPX #### [facility] [address] [place] [address] Urea nitrogen [Mass/Vol] 20 mg/dL Normal 8-23 [facility] Comment on above: Performed By: #### B MPX #### [facility] [address] [place] [address] CBC With Platelet No Differe ntialon 02-23-2019 Erythrocyte distribution width (RBC) [Ratio] 13.4 % Normal 11.5-14.5 [facility] Comment on above: Performed By: #### C BCND #### [facility] [address] [place] [address] Hematocrit (Bld) [Volume fraction] 38.8 % Normal 37.0-47.0 [facility] Comment on above: Performed By: #### C BCND #### [facility] [address] [place] [address] Hemoglobin (Bld) [Mass/Vol] 13.6 g/dL Normal 12.0-16.0 [facility] Comment on above: Performed By: #### C BCND #### [facility] [address] [place] [address] MCH (RBC) [Entitic mass] 32.2 pg Critically high 27.0-31.3 [facility] Comment on above: Performed By: #### C BCND #### [facility] [address] [place] [address] MCHC (RBC) [Mass/Vol] 35.1 % Normal 33.0-37.0 [facility] Comment on above: Performed By: #### C BCND #### [facility] [address] [place] [address] MCV (RBC) [Entitic vol] 91.6 fL Normal 82.0-100.0 [facility] Comment on above: Performed By: #### C BCND #### [facility] [address] [place] [address] Platelets (Bld) [#/Vol] 212 10*3/uL Normal 130-400 [facility] Comment on above: Performed By: #### C BCND #### [facility] [address] [place] [address] RBC (Bld) [#/Vol] 4.24 10*6/uL Normal 4.20-5.40 [facility] Comment on above: Performed By: #### C BCND #### [facility] [address] [place] [address] WBC (Bld) [#/Vol] 8.3 10*3/uL Normal 4.8-10.8 [facility] Comment on above: Performed By: #### C BCND #### [facility] [address] [place] [address] FLUORO FOR SURGICAL PROCEDUR ESon 02-23-2019 FLUORO [...] Nona Yates MD 02/23/19 Final result Normal [facility] Surgical Specimenon 02-24-20 Surgical Specimen [facility] [address] [place] [id number] FINAL SURGICAL PATHOLOGY REPORT Patient Name: SON HUBBARD Accession No: [id number] Age Sex: 1945 Location: [facility] Account No: [id number] Collected: 02/23/2019 Med Rec No: [id number] Received: 02/24/2019 Attend Phys: FAN RAMIREZ Completed: [...] 3.5 x 3.0 x 0.5 cm. Sections client care representative are submitted in three cassettes labeled A1 through A3 after a brief decalcification. ALIFA/SCDAN CPT: 88928 X1 99002 X1 CHIDI LUNA M.D. 02/26/2019 Electronically signed out by Page 1 of 1 [facility] Comment on above: Performed By: #### B MP #### [facility] [address] [place] [address] Basic Metabolic Panelon 02-08 Anion gap [Moles/Vol] 13 mmol/L Normal 9-15 [facility] Comment on above: Performed By: #### B MP #### [facility] [address] [place] [address] Calcium [Mass/Vol] 9.7 mg/dL Normal 8.5-9.9 [facility] Comment on above: Performed By: #### B MP #### [facility] [address] [place] [address] Chloride [Moles/Vol] 105 mmol/L Normal 95-107 [facility] Comment on above: Performed By: #### B MP #### [facility] [address] [place] [address] CO2 [Moles/Vol] 24 mmol/L Normal 20-31 [facility] Comment on above: Performed By: #### B MP #### [facility] [address] [place] [address] Creatinine [Mass/Vol] 1.00 mg/dL Critically high 0.50-0.90 [facility] Comment on above: Performed By: #### B MP #### [facility] [address] [place] [address] GFR/1.73 sq M predicted among blacks MDRD (S/P/Bld) [Vol rate/Area] mL/min/{1.73_m2} Normal >60 [facility] Comment on above: Result Comment: >60 mL/min/1.73m2 EGFR, calc. for ages 18 and older using the MDRD formula (not corrected for weight), is valid for stable renal function. Performed By: #### B MP #### [facility] [address] [place] [address] GFR/1.73 sq M.predicted MDRD (S/P/Bld) [Vol rate/Area] 54.3 mL/min/{1.73_m2} Low >60 [facility] Comment on above: Result Comment: >60 mL/min/1.73m2 EGFR, calc. for ages 18 and older using the MDRD formula (not corrected for weight), is valid for stable renal function. Performed By: #### B MP #### [facility] [address] [place] [address] Glucose [Mass/Vol] 93 mg/dL Normal 70-99 [facility] Comment on above: Performed By: #### B MP #### [facility] [address] [place] [address] Potassium [Moles/Vol] 4.1 mmol/L Normal 3.4-4.9 [facility] Comment on above: Performed By: #### B MP #### [facility] [address] [place] [address] Sodium [Moles/Vol] 142 mmol/L Normal 135-144 [facility] Comment on above: Performed By: #### B MP #### [facility] [address] [place] [address] Urea nitrogen [Mass/Vol] 20 mg/dL Normal 8-23 [facility] Comment on above: Performed By: #### B MP #### [facility] [address] [place] [address] CBC With Platelet No Differe ntialon 02-22-2019 Erythrocyte distribution width (RBC) [Ratio] 13.2 % Normal 11.5-14.5 [facility] Comment on above: Performed By: #### C BCND #### [facility] [address] [place] [address] Hematocrit (Bld) [Volume fraction] 39.9 % Normal 37.0-47.0 [facility] Comment on above: Performed By: #### C BCND #### [facility] [address] [place] [address] Hemoglobin (Bld) [Mass/Vol] 14.1 g/dL Normal 12.0-16.0 [facility] Comment on above: Performed By: #### C BCND #### [facility] [address] [place] [address] MCH (RBC) [Entitic mass] 32.5 pg Critically high 27.0-31.3 [facility] Comment on above: Performed By: #### C BCND #### [facility] [address] [place] [address] MCHC (RBC) [Mass/Vol] 35.3 % Normal 33.0-37.0 [facility] Comment on above: Performed By: #### C BCND #### [facility] [address] [place] [address] MCV (RBC) [Entitic vol] 92.2 fL Normal 82.0-100.0 [facility] Comment on above: Performed By: #### C BCND #### [facility] [address] [place] [address] Platelets (Bld) [#/Vol] 206 10*3/uL Normal 130-400 [facility] Comment on above: Performed By: #### C BCND #### [facility] [address] [place] [address] RBC (Bld) [#/Vol] 4.33 10*6/uL Normal 4.20-5.40 [facility] Comment on above: Performed By: #### C BCND #### [facility] [address] [place] [address] WBC (Bld) [#/Vol] 5.9 10*3/uL Normal 4.8-10.8 [facility] Comment on above: Performed By: #### C BCND #### [facility] [address] [place] [address] Partial Thromboplastin Timeo n 02-22-2019 aPTT Coag (Bld) [Time] 36.9 s Critically high 24.4-36.8 [facility] Comment on above: Result Comment: Effe ctive 02/18/2019: Please note methodology and/or reference ranges have changed. Performed By: #### P TT #### [facility] [address] [place] [address] Prothrombin Timeon 9 INR Coag (PPP) [Relative time] 0.9 {INR} Normal [facility] Comment on above: Result Comment: Warf esther Therapy INR Therapeutic: 2.0-3.0 With Mechanical Valve: >2.5 Low-intensity Therapeutic Range: 1.5-2.0 Mod-intensity Therapeutic Range: 2.0-3.0 High-intensity Therapeutic Range: 2.5-3.5 HIgh-intensity Therapeutic Range: 3.0-4.0 Common Critical/Alarm Value: 5.0 Common Upper Limit Reported: 10.0 Effective 02/18/2019: Please note methodology and/or reference ranges have changed. Performed By: #### P T #### [facility] [address] [place] [address] PT Coag (PPP) [Time] 12.6 s Normal 12.3-14.9 [facility] Comment on above: Result Comment: Effjoel ctive 02/18/19 Please note methodology and/or reference ranges have changed. Performed By: #### P T #### [facility] [address] [place] [address] Type and Screen Capture 3 sc rn cellon 02-22-2019 Type and Screen Capture 3 scrn cell PATIENT: INEZ Wilson LOC: [facility] BILL# : [id number] : 1945 SEX: F ORDERED BY: RISSA Hale ORDERED : 02/22/2019 07:32 COLLECTED: 02/22/2019 09:40 ORDER : [id number] RECEIVED : 02/22/2019 09:40 Confirmation type needs to be drawn. --------- TEST NAME RESULT UNITS RANGES ABN FL ST ABORH Capture O NEG F Antibody 3 Cell Scrn Captu NEG F -------- Normal [facility] Comment on above: Performed By: #### T S3C #### [facility] [address] [place] [address] XR SPINE ENTIRE (2-3 VIEWS)o n 02-22-2019 [...] Hope Rapp MD 02/23/19 Final result Normal [facility] No Panel Information [facility] Encounters Encounter Date Encounter Type Care Provider Facility Start: 09-16-2023 Orders Only Shravan rodríguez MD Work Phone: Cardiology Comment on above: Hypertension, unspec ified type (Primary Dx); Coronary artery disease involving belkofski coronary artery of belkofski heart, unspecified whether angina present; Hyperlipidemia, unspecified hyperlipidemia type Start: 09-03-2023 End: 09-03-2023 ambulatory [facility] Start: 08-06-2023 End: 08-07-2023 ambulatory [facility] Start: 07-08-2023 End: 07-09-2023 ambulatory [facility] Start: 06-11-2023 End: 06-11-2023 ambulatory Referral Self Facility:[facility] Start: 06-11-2023 End: 06-11-2023 ambulatory MD Pat Newell Work Phone: [facility] Work Phone: Start: 06-11-2023 End: 06-11-2023 Patient encounter procedure MD Pat Newell Work Phone: [facility] Work Phone: Start: 03-28-2023 End: 03-28-2023 [facility] Start: 11-12-2022 End: 11-13-2022 ambulatory MADELYN DICKSNO Facility:[facility] Start: 10-18-2022 End: 10-18-2022 ambulatory PAT NEWELL Facility:[facility] Start: 10-10-2022 End: 10-10-2022 ambulatory PAT NEWELL Facility:[facility] Start: 10-10-2022 End: 10-10-2022 Patient encounter [...] 06-10-2022 ambulatory MD Pat Newell Work Phone: [facility] Work Phone: Start: 06-10-2022 End: 06-10-2022 Patient encounter procedure MD Pat Newell Work Phone: [facility] Start: 05-15-2022 End: 05-15-2022 ambulatory MYLENE ALMEIDA Facility:[facility] Start: 05-02-2022 End: 05-02-2022 ambulatory MYLENE ALMEIDA Facility:[facility] Start: 05-02-2022 End: 05-02-2022 Patient encounter procedure Mylene Almeida MD Work Phone: Ophthalmology Comment on above: S/P cataract extract ion and insertion of intraocular lens, left (Primary Dx) Start: 05-01-2022 End: 05-02-2022 ambulatory NAILA Marlin CEDILLO Facility:[facility] Start: 05-01-2022 End: 05-01-2022 Patient encounter procedure Naila Cedillo OD Work Phone: Ophthalmology Comment on above: Superficial punctate keratitis of left eye (Primary Dx); Pseudophakia Start: 05-01-2022 End: 05-01-2022 ambulatory MYLENE ALMEIDA Facility:[facility] Start: 04-24-2022 End: 04-24-2022 ambulatory MYLENE ALMEIDA Facility:[facility] Start: 04-24-2022 Encounter for other preprocedural examination MYLENE ALMEIDA [facility] Start: 04-24-2022 End: 04-24-2022 Patient encounter procedure [...] Start: 03-07-2022 End: 03-07-2022 ambulatory PAT NEWELL Facility:[facility] Start: 01-11-2022 Telephone encounter Mylene henderson MD Work Phone: Ophthalmology Comment on above: Appointment Start: 05-11-2020 End: 05-12-2020 ambulatory PAT NEWELL Facility:[facility] Start: 04-04-2020 End: 04-05-2020 ambulatory PAT NEWELL Facility:[facility] Start: 02-24-2019 End: 03-05-2019 Evaluation and management of inpatient CHRISTIE REED [facility] Start: 02-23-2019 End: 02-24-2019 Evaluation and management of inpatient FAN RAMIREZ [facility] Start: 02-23-2019 End: 02-26-2019 Patient encounter procedure FAN RAMIREZ [facility] Start: 02-22-2019 End: 02-24-2019 Patient encounter procedure FAN RAMIREZ [facility] Start: 02-22-2019 End: 02-27-2019 Patient encounter procedure FAN Santana [facility] Procedures Date Procedure Procedure Detail Performing [...] INCENTIVE SPIROMETRY RT FAN ASHLEY Start: 02-25-2019 DIE REAMER EVAL AND TREAT FAN Y OO Start: [...] Start: 02-24-2019 Comprehensive metabo lic panel FAN ASHELY Start: 02-24-2019 PULSE OXIMETRY, CONTINUOUS FAN ASHLEY [...] Treatment Date Care Activity Detail Author Start: 08-11-2023 Advance Directive Discussion Advance Directive Discussion [facility] Start: 08-11-2023 Depression Assessment Depression Ass essment [facility] Start: 04-11-2023 Covid-19 Vaccine () Covid-19 Vaccine () [facility] Start: 04-11-2023 Influenza vaccination Influenza Vacc ine (#1) [facility] Start: 03-07-2023 End: 08-29-2023 IOL BIOMETRY W/ IOL CALC OU (BOTH EYES) IOL BIOMETRY W/ IOL CALC OU (BOTH EYES) OPHT Imaging Routine Combined forms of age-related cataract of both eyes Expected: 03/07/2023, Expires: 08/29/2023 [facility] Work Phone: Comment on above: Expected: 03/07/2023 , Expires: 08/29/2023 Start: 08-11-2022 ADVANCE DIRECTIVE DISCUSSION ADVANCE DIRECTIVE DISCUSSION [facility] Start: 07-09-2022 COVID-19 VACCINE (4 - Booster for Pfizer series) COVID-19 VACCINE (4 - Booster for Pfizer series) [facility] Start: 05-03-2022 COVID-19 VACCINE (4 - Booster for Pfizer series) COVID-19 VACCINE (4 - Booster for Pfizer series) [facility] Start: 04-11-2022 Influenza vaccination [facility] Start: 02-24-2022 Diabetes Screening Diabetes Screenin g [facility] Start: 08-11-2021 ADVANCE DIRECTIVE DISCUSSION ADVANCE DIRECTIVE DISCUSSION [facility] Start: 03-01-2021 COVID-19 VACCINE (3 - Booster for Pfizer series) COVID-19 VACCINE (3 - Booster for Pfizer series) [facility] Start: 06-20-2019 DIABETES SCREEN DIABETES SCREEN [facility] Start: 05-28-2018 Pneumococcal Vaccine : 65+ (2 of 2 - PCV) Pneumococcal Vaccine: 65+ (2 of 2 - PCV) [facility] Start: 06-14-2017 Adult depression screening assessment DEPRESSION SCREENING [facility] Start: 05-30-2013 PNEUMOCOCCAL: 65+ (2 - PCV) PNEUMOCOCCAL: 65+ (2 - PCV) [facility] Start: 2011 BONE DENSITY BONE DENSITY [facility] Start: 2011 Screening for osteoporosis Bone Density Screening [facility] Start: 2006 RSV Vaccine (1 - 1-d ose 60+ series) RSV Vaccine (1 - 1-dose 60+ series) [facility] Start: 01-22-1996 SHINGRIX VACCINE (1 of 2) SHINGRIX VACCINE (1 of 2) [facility] Start: 1991 COLOGUARD (FIT-DNA) COLOGUARD (FIT-D NA) [facility] Start: 1991 Colonoscopy COLONOSCOPY [facility] Start: 1991 COLORECTAL CANCER SCREENING COLORECTAL CANCER SCREENING [facility] Start: [address] COLONOGRAPHY [facility] Start: 1991 FECAL OCCULT BLOOD FECAL OCCULT BLOO D [facility] Start: 1991 LIPID SCREEN LIPID SCREEN [facility] Start: 1991 SIGMOIDOSCOPY SIGMOIDOSCOPY [facility] Start: 1965 Urine microalbumin profile [facility] Start: 01-22-1964 ANNUAL PCP TEAM NIPPLE MAKER KALA DISEASE VISIT ANNUAL PCP TEAM CHRONIC DISEASE VISIT [facility] Start: 01-22-1964 BP CONTROLLED (<130/80) BP CONTROLLE D (<130/80) [facility] Start: 01-22-1964 Hepatitis B surface antibody level LDL CHOLESTEROL [facility] Start: 01-22-1964 HEPATITIS C SCREENING HEPATITIS C [facility] Start: 01-22-1964 Hepatitis C screening Hepatitis C [facility] Start: 1958 Adult depression screening assessment DEPRESSION SCREENING [facility] Start: 1951 COVID-19 VACCINE (#1) COVID-19 VACCI NE (#1) [facility] CORNEAL TOPOGRAPHY PENTACAM OU (BOTH EYES) CORNEAL TOPOGRAPHY PENTACAM OU (BOTH EYES) OPHT Imaging Routine Combined forms of age-related cataract of both eyes 04/24/2022 12:46 PM EDT [facility] Work Phone: End: 09-16-2024 ECG COMPLETE ECG COMPLETE ECG Routine Hypertension, unspecified type Coronary artery disease involving belkofski coronary artery of belkofski heart, unspecified whether angina present Hyperlipidemia, unspecified hyperlipidemia type 1 Occurrences starting 09/16/2023 until 09/16/2024 [facility] Work Phone: Comment on above: 1 Occurrences starti ng 09/16/2023 until 09/16/2024 [facility] Immunizations Immunization Date Immunization Notes Care Provider Fa cility 08-27-2022 influenza virus vacc ine, unspecified formulation Shravan Buchanan MD Work Phone: [facility] 05-30-2012 influenza virus vacc ine, unspecified formulation Mylene Wayne MD Work Phone: [facility] 05-30-2012 pneumococcal polysaccharide vaccine, 23 valent Mylene Wayne MD Work Phone: [facility] Payers Date Payer Category Payer Self-pay [id number] 2019 Private Health Insurance [id number] 2019 Private Health Insurance DAJUAN MARTINSA MEDICARE SUPPLEMENT [id number] 2019-Present [phone] [address] [place] [address] Indemnity [id number] 2019 Private Health Insurance CIGKENDRICK MARTINSA MEDICARE SUPPLEMENT [id number] 2019-Present [phone] [address] [place] [address] Indemnity [id number] 2016 Medicare [id number] 2016 Private Health Insurance [id number] 2011 Medicare MEDICARE MEDICAR E A AND B [id number] 2011-Present [phone] [place] [address] Medicare [id number] 2011 Medicare MEDICARE MEDICAR E A AND B [id number] 2011-Present [phone] [place] [address] Medicare [id number] 1959 Medicare [id number] 1959 Private Health Insurance [id number] 1945 Unknown [id number] .182 1945 Unknown [id number] [id number] .182 1945 Unknown [id number] .182 1945 Unknown [id number] .182 1945 Unknown [id number] [id number] .182 1945 Unknown [id number] 2.16.840.1.239779.3.579.2 .182 1945 Unknown [id number] 2.16.840.1.449103.3.579.2 .647 1945 Unknown [id number] 2.16.840.1.876617.3.579.2 .647 1945 Unknown [id number] 2.16.840.1.655627.3.579.2 .593 1945 Unknown [id number] 2.16.840.1.924525.3.579.2 .593 1945 Unknown [id number] 2.16.840.1.495621.3.579.2 .593 1945 Unknown [id number] 2.16.840.1.681091.3.579.2 .593 1945 Unknown [id number] 2..[id number] .593 Unknown [id number] .531 Social History Date Type Detail Facility Start: 04-28-2012 End: 04-24-2022 Tobacco smoking status NHIS Ex-smoker [facility] End: 04-28-1990 History of tobacco use Current smoker [facility] End: 04-28-1990 History of tobacco use Cigarette Smoker [facility] Start: 04-28-2012 End: 09-06-2022 Cigarettes smoked current (pack per day) - Reported 0.7 [facility] Start: 06-14-2016 End: 10-18-2022 Alcohol intake Current non-drinker of alcohol (finding) [facility] Start: 1945 Sex Assigned At Not on file C [facility] Start: 04-24-2022 Tobacco use and exposure Former smokeless tobacco user [facility] Work Phone: Start: 04-07-2022 End: 05-01-2022 Exposure to SARS-CoV-2 (event) Not sure [facility] Work Phone: Start: 1945 Sex Assigned At Female F [facility] Start: 09-06-2022 End: 10-18-2022 Tobacco use panel [facility] National Score (1-10 0), lower number is lower risk 70 [facility] Medical Equipment Procedure Code Equipment Code Equipment Original Text Equipment Identifier Dates Elan Bn Smpx P Radpq Fd Strl - [id number] Start: 05-27-2012 Sys Bncmnt Prep Kt Plg Brsh - [id number] Start: 05-27-2012 Comment on above: Description: CEMENT RESTRICTOR Stem Fem 50mm 12mm Elan Trthln - [id number] Start: 05-27-2012 Comment on above: Description: cemente d stem Aug Tib 10mm Trthln 3 Rt - [id number] Start: 05-27-2012 Comment on above: Description: AUGMENT Comp Fem 3 Rt Kn Total Stab - [id number] Start: 05-27-2012 Comment on above: Description: TS FEMU R Ins Tib 3 13mm K n X3 Cs Trthln - [id number] Start: 05-27-2012 Comment on above: Description: CS INSE RT Comp Pat 10mm 32mm Asym Trthln - [id number] Start: 05-27-2012 Comment on above: Description: PATELLA Baseplt Tib Trthln 3 Kn Total - [id number] Start: 05-27-2012 Comment on above: Description: UNIVERS AL BASEPLATE Lens Iol 0d +19. 5 Talat Uv Abs - [id number] Start: 05-01-2022 Comment on above: Description: -1.52 Lens Iol 0d +18 Talat Uv Abs - [id number] Start: 05-15-2022 Comment on above: Description: -0.34 Clinical Notes 01-16-2022 to 09-03-2023 Patient Sebastian Almeida V, MD - 10/10/2022 12:24 PM Lenin Murphy OD - 10/10/2022 11:44 AM Mark Almeida V, MD - 05/02/2022 10:44 AM EDT Note Date & Type Note Facility 09-03-2023 Note [place] [facility] Subjective Son Hubbard is a 78 y.o. year old female patient being seen for follow up VIOLA. C/o extreme tiredness . Denies chest pain, SOB, and palpitations. 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 The [...] June 2023 she was admitted to the [facility] with worsening shortness of breath and fatigue. [...] Inhibitors Amlodipine Swell (more content not included)... [facility] 08-06-2023 Note Patient: Son arguelles Procedure Information Date/Time: 08/06/23 1030 Procedure: TRANSESOPHAGEAL ECHO (VIOLA) Location: [facility] Vascular Lab Clinical information reviewed: Allergies Meds Physical Exam Airway Mallampati: II TM distance: >3 FB Neck ROM: full Cardiovascular Dental Pulmonary Abdominal Anesthesia Plan ASA 2 other (Moderate sedation) Additional Equipment Requests [facility] 07-08-2023 Note Patient here for [facility] low up [facility] for SOB and chest pain. She was started on isosorbide. She is scheduled for outpatient stress test next week. She denies chest pain. SOB is improving. C/o LE edema which resolves by morning. C/o fatigue. Review of Systems Cardiovascular: Positive for leg swelling. All other systems reviewed and are negative. [facility] 07-08-2023 Note Cardiovascular Medic ine [facility] SUBJECTIVE Chief Complaint Patient presents with Fatigue Congestive Heart Failure Edema Shortness of Breath Son Hubbard is a 78 y.o. female here for hospital follow-up. HPI She started to have feeling of chest congestion around 06/21/2023 (this was similar to how she felt prior to her stent placement) and she presented to [facility]. She states she was having SOB [...] March 2020 she was admitted to the [facility] with worsening shortness of breath. The [...] Mitral valve regurgitation Coronary artery disease involving belkofski coronary artery of belkofski heart without angina pectoris Primary hypertension Nonrheumatic [...] Rfl: liothyronine ( (more content not included)... [facility] 03-28-2023 Note [place] [facility] Subjective Son Hubbard is a 78 y.o. year old female patient being seen for Follow-up (6 MONTH FOLLOW UP ) Patient Active Problem List Diagnosis Mitral valve regurgitation Coronary artery disease involving belkofski coronary artery of belkofski heart without angina pectoris Primary hypertension Nonrheumatic [...] March 2020 she was admitted to the [facility] with worsening shortness of breath. The [...] tablet, TAKE 1 (more content not included)... [facility] 10-18-2022 Note HNO ID: [id number] Author: Steph Murphy, JOAQUIM Service: ? Author Type: TROMMEL TENDER Type: Progress Notes Filed: 10/18/2022 10:33 AM [...] Murphy, OD October 18, 2022 10:[address] [facility] 10-10-2022 Note HNO ID: [id number] Author: Mylene Almeida V, MD Service: ? Author Type: Physician Type: Progress Notes Filed: 10/10/2022 12:30 PM Note Text: The documentation for this note was completed by CHRISTAL Ulloa acting as a scribe for Myelne ALMEIDA MD. 10/10/2022 12:24 PM. ASSESSMENT / [...] patient was offered a surgery/procedure at a [facility] facility. The surgeon/proceduralist and patient [...] ALMEIDA MD October 10, 2022 12:[address] [facility] 10-10-2022 Note HNO ID: [id number] Author: Steph Murphy OD Service: ? Author Type: TROMMEL TENDER Type: Progress Notes Filed: 10/10/2022 12:30 PM [...] Murphy, OD October 10, 2022 11:[address] [facility] 10-10-2022 Instructions Mylene Almeida V, MD - [...] so we recommend you come with a bulk truck driver. You will then be scheduled for a follow up in approximately one week. If you notice any of the following symptoms of retinal detachment, please call our office at : - Flashes of light - Increased number of floaters or large floaters - Curtains, veils, or spider web pattern over vision documented in this encounter [facility] 10-10-2022 History of Present illness Narrative The documentation for this note was completed by Samantha Garcia, CHRISTAL acting as a scribe for Mylene [...] patient was offered a surgery/procedure at a [facility] facility. The surgeon/proceduralist and patient [...] 2022 11:45 AM documented in this encounter [facility] 05-02-2022 Note HNO ID: [id number] Author: Mylene Almeida V, MD Service: ? [...] ALMEIDA MD May 02, 2022 10:[address] [facility] 05-02-2022 History of Present illness Narrative The [...] 2022 10:44 AM documented in this encounter [facility] 05-01-2022 Note HNO ID: [id number] Author: Naila Cedillo, JOAQUIM Service: ? Author Type: TROMMEL TENDER Type: Progress Notes Filed: 05/02/2022 7:54 AM [...] with all of its relevant components. Naila L Hunter, OD May 01, 2022 6:[address] [facility] 05-01-2022 History of Present illness Narrative ASSESSMENT/PLAN: [...] 2022 6:05 PM documented in this encounter [facility] 04-24-2022 Note HNO ID: [id number] Author: CHRISTAL Calles Service: ? Author Type: Service Station Manager Type: Progress Notes Filed: 04/24/2022 12:47 PM Note Text: Confirmed Aim: -1.50 OS, Clayton OD CHRISTAL Calles April 24, 2022 12:[address] [facility] 04-24-2022 History of Present illness Narrative Confirmed Aim: -1.50 OS, Clayton OD CHRISTAL Calles April 24, 2022 12:46 PM documented in this encounter [facility] 03-07-2022 Note HNO ID: [id number] Author: Mylene Almeida V, MD Service: ? [...] and surgery - Comanage with Dr Wilson; [facility] POD #1 Cataract Presurgical Documentation Cataract: Both [...] patient was offered a surgery/procedure at a [facility] facility. The surgeon/proceduralist and patient [...] ALMEIDA MD March 07, 2022 1:[address] [facility] 03-07-2022 Note HNO ID: [id number] Author: Marian Arroyo, JOAQUIM Service: ? Author Type: TROMMEL TENDER Type: Progress Notes Filed: 03/07/2022 1:34 PM [...] Arroyo, JOAQUIM March 07, 2022 12:[address] [facility] 03-07-2022 History of Present illness Narrative The [...] and surgery - Comanage with Dr Wilson; [facility] POD #1 Cataract Presurgical Documentation Cataract: Both [...] patient was offered a surgery/procedure at a [facility] facility. The surgeon/proceduralist and patient [...] 2022 12:59 PM documented in this encounter [facility] 01-16-2022 Miscellaneous Notes Patient has been rescheduled with Dr. Almeida for March 07 in [place] Patient called Appointment Center and was scheduled with Dr. Taylor. We are waiting to confirm from Dr. Wilson office if it is ok for patient to stay scheduled with or to call and reschedule with Dr. Almeida LVM for patient to schedule at Cataract Evaluation with Dr. Almeida in [place] per faxed referral from Dr. Wilson. First attempt 01/11/22. Referral scanned into chart. documented in this encounter [facility] Evaluation note Diagnosis Combined forms of age-related cataract of both eyes- Primary Other and combined forms of senile cataract Posterior vitreous detachment of right eye Vitreous degeneration [facility] Diagnosis Combined forms of age-related cataract of both eyes- Primary Other and combined forms of senile cataract [facility] Diagnosis Combined forms of age-related cataract of both eyes Other and combined forms of senile cataract Combined forms of age-related cataract of both eyes Other and combined forms of senile cataract Combined forms of age-related cataract of both eyes Other and combined forms of senile cataract [facility] Diagnosis Superficial punctate keratitis of left eye- Primary Pseudophakia Lens replaced by other means Combined forms of age-related cataract of both eyes Other and combined forms of senile cataract [facility] Diagnosis S/P cataract extraction and insertion of intraocular lens, left- Primary Combined forms of age-related cataract of both eyes Other and combined forms of senile cataract [facility] Phone: Evaluation note* Diagnosis PCO (posterior capsular opacification), bilateral- Primary After-cataract, unspecified Pseudophakia of both eyes Lens replaced by other means Vitreous degeneration, 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 Other retinal disorders documented in this encounter [facility] note* Diagnosis Hypertension, unspecified type- Primary Coronary artery disease involving belkofski coronary artery of belkofski heart, unspecified whether angina present Hyperlipidemia, unspecified hyperlipidemia type documented in this encounter [facility] for referral (narrative)* Outpatient Procedure (Routine) - Authorized Specialty Diagnoses / Procedures Referred By Contac t Referred To Contact [facility] [place] Diagnoses Hypertension, unspecified type Coronary artery disease involving belkofski coronary artery of belkofski heart, unspecified whether angina present Hyperlipidemia, unspecified hyperlipidemia type Procedures ECG COMPLETE ECG ROUTINE ECG W/LEAST 12 LDS W/I&R Shravan Buchanan MD [address] [place] [address] [facility] [place] [address] Referral ID Status Reason Start Date Expiration Date Visits Requested Visits Authorized [id number] Authorized Auto-Generat ed Referral 09/16/2023 09/15/2024 1 1 [facility] Summary Purpose Family History No Family History [...] section and content) DATE CREATED AUTHOR 03/05/2019 [facility] DATE CREATED AUTHOR AUTHOR'S ORGANIZ ATION 03/13/[address] [facility] DATE CREATED AUTHOR AUTHOR'S ORGANIZ ATION 10/19/[address] [facility] DATE CREATED AUTHOR AUTHOR'S ORGANIZ ATION 11/18/2022 [facility] DATE CREATED AUTHOR AUTHOR'S ORGANIZ ATION 06/18/2023 [facility] DATE CREATED AUTHOR AUTHOR'S ORGANDOREEN ATION 09/23/2023 [facility] Comments (unrecognize d section and content) In the event this informatio n is protected by the Federal Confidentiality of Alcohol and Drug Abuse Patient Records regulations: The Federal rules restrict any use of the information to criminally investigate or prosecute any alcohol or drug abuse patient.[facility] the event this information is protected by the Federal Confidentiality of Alcohol and Drug Abuse Patient Records regulations: The Federal rules restrict any use of the information to criminally investigate or prosecute any alcohol or drug abuse patient.[facility] the event this information is protected by the Federal Confidentiality of Alcohol and Drug Abuse Patient Records regulations: The Federal rules restrict any use of the information to criminally investigate or prosecute any alcohol or drug abuse patient.[facility] the event this information is protected by the Federal Confidentiality of Alcohol and Drug Abuse Patient Records regulations: The Federal rules restrict any use of the information to criminally investigate or prosecute any alcohol or drug abuse patient.[facility] the event this information is protected by the Federal Confidentiality of Alcohol and Drug Abuse Patient Records regulations: The Federal rules restrict any use of the information to criminally investigate or prosecute any alcohol or drug abuse patient.[facility] the event this information is protected by the Federal Confidentiality of Alcohol and Drug Abuse Patient Records regulations: The Federal rules restrict any use of the information to criminally investigate or prosecute any alcohol or drug abuse patient.[facility] the event this information is protected by the Federal Confidentiality of Alcohol and Drug Abuse Patient Records regulations: The Federal rules restrict any use of the information to criminally investigate or prosecute any alcohol or drug abuse patient.[facility] the event this information is protected by the Federal Confidentiality of Alcohol and Drug Abuse Patient Records regulations: The Federal rules restrict any use of the information to criminally investigate or prosecute any alcohol or drug abuse patient.[facility] Reason for Visit (unrecogniz ed [...] ovider Active Referral Self Attending Provider Active Gardening Instructor Relationship Specialty Start Date End Date Pat Newell MD PCP - General Family Practice 03/30/12 Gardening Instructor Relationship Specialty Start Date End Date Pat Newell MD PCP - General Family Practice 03/30/12 Gardening Instructor Relationship Specialty Start Date End Date Pat Newell MD PCP - General Family Practice 03/30/12 Gardening Instructor Relationship Specialty Start Date End Date Pat Newell MD PCP - General Family Practice 03/30/12 Gardening Instructor Relationship Specialty Start Date End Date Pat Newell MD PCP - General Family Medicine 03/30/12 Gardening Instructor Relationship Specialty Start Date End Date Pat Newell MD PCP - General Family Medicine 03/30/12 Gardening Instructor Relationship Specialty Start Date End Date Pat Newell MD PCP - General Family Medicine 03/30/12 Gardening Instructor Relationship Specialty Start Date End Date Pat [...] BE BASED ON THE PRIMARY CLINICAL RECORDS. [facility] [email or web address] [facility]. provides no warranty or guarantee of the accuracy or completeness of information in this document.
--- NOTE | 2023-09-29 23:03 | XR_ITS ---
The [address] [address] Patient Name: SON WILEY MRN: [id number] date: 1945 Sex: F Assigned Patient Location: ER Current Patient Location: ED.MAIN Accession/Order Number: [id number] Exam Date: 09/29/2023 23:35 Report Date: 09/30/2023 00:14 At the request of: PAIGE PALMER Procedure: XR chest 1V EXAMINATION:XR chest 1V INDICATION:rapid atrial fibrillation COMPARISON:06/19/2023 TECHNIQUE:A single frontal view of the chest is submitted. FINDINGS: The cardiac silhouette is stable. The pulmonary vascularity is within normal limits. No acute airspace disease is present in the chest. There is no costophrenic angle blunting. XR/XR chest 1V IMPRESSION: No acute cardiopulmonary process in the chest. Electronically authenticated by: JOAQUIN CARPIO Date: 09/30/2023 00:14
--- NOTE | 2023-09-29 23:03 | ECG_ITS ---
The [facility] Test Date: 2023-09-29 Pat Name: SON WILEY Department: Room: - Gender: Female Erp Manager: : 1945 Requested By: PAT NEWELL Order Number: [id number] Reading MD: PAT NEWELL Measurements Intervals [place] Rate: 175 P: -93394 [place]: -83036 QRS: 71 QRSD: 80 T: 64 QT: 322 QTc: 416 Interpretive Statements 32597 Atrial fibrillation with rapid ventricular response [address] depression, possible subendocardial injury or digitalis effect [address] & Twave abnormality, probably digitalis effect 9150 abnormal ECG Compared to ECG 08/09/2023 17:58:46 Sinus rhythm no longer present ST (T wave) deviation still present Electronically Signed On 10-01-2023 6:08:19 EST by PAT NEWELL
[2023-09-29] MEDS: 0.9 % SODIUM CHLORIDE 1,000 ML 999 ML IV (23:21)
[2023-09-29] MEDS: METOPROLOL TARTRATE 5 MG/5 ML VIAL IVP (23:25)
[2023-09-29 23:31] LABS: Hematocrit 42.9 % (36.0-48.0); Hemoglobin 13.9 g/dL (12.0-16.0); Mean Corpuscular HGB Conc 32.4 g/dL (29.9-35.2); Mean Corpuscular Hemoglobin 30.9 pg (26.7-34.0); Mean Corpuscular Volume 95.3 fL (81.0-99.0); Mean Platelet Volume 10.8 fL (9.5-13.5); Platelet Count 262 10^3/uL (150-450); White Blood Count 12.5 10^3/uL (4.0-11.0)
[2023-09-29] MEDS: AMIODARONE IN DEXTROSE,ISO-OSM 150 MG/100 ML PIGGYBACK 600 MG IV (23:42)
--- NOTE | 2023-09-29 23:46 | ED.GENADUL1 ---
HPI - General Adult General Chief complaint: Chest Pain Stated complaint: CHEST SORENESS Time Seen by Provider: 09/29/23 22:50 Source: patient Mode of arrival: walk-in Limitations: no limitations History of Present Illness HPI narrative: Patient presents with complaint of chest pain that began this morning and has persisted throughout the day. She had UTI symptoms and was started on pyridium and cephalexin 3 days ago by her PCP, Dr daigle. She told me that she mitral regurgitation but no prior history of atrial fibrillation. She takes aspirin daily but no other blood thinners. She used to see Dr Doran re her MV but does not want surgery in [place] so she is seeing a revenue inspector at [facility] in January. Related Data Home Medications Medication Instructions Recorded Confirmed aspirin 81 mg capsule 81 mg PO DAILY 06/19/23 09/29/23 atorvastatin 40 mg tablet 40 mg PO DAILY 06/19/23 09/29/23 escitalopram oxalate 10 mg tablet 10 mg PO DAILY 06/19/23 09/29/23 (Lexapro) hydralazine 25 mg tablet 25 mg PO BID 06/19/23 06/19/23 loperamide 2 mg capsule 2 mg PO DAILY 06/19/23 09/29/23 (Anti-Diarrheal (loperamide)) losartan 100 mg tablet (Cozaar) 100 mg PO DAILY 06/19/23 09/29/23 pantoprazole 40 mg tablet,delayed 40 mg PO DAILY 06/19/23 09/29/23 release vitamin A-vitamin C-vit E-min 1 tab PO DAILY 06/19/23 09/29/23 tablet (Vision tablet) Previous Rx's Medication Instructions Recorded benzonatate 200 mg capsule 200 mg PO TID PRN cough #60 caps 06/20/23 isosorbide mononitrate 30 mg 30 mg PO Q24H #30 tabs 06/20/23 tablet,extended release 24 hr liothyronine 5 mcg tablet 5 mcg PO QD #30 tabs 06/20/23 guaifenesin 600 mg tablet, 600 mg PO BID PRN cough #10 tabs 08/09/23 extended release 12 hr (Mucinex) promethazine 12.5 mg tablet 6.25 mg (1/2 x 12.5 mg) PO TID PRN 08/09/23 nausea and vomiting #7 tabs Allergies Allergy/AdvReac Type Severity Reaction Status Date / Time SERINA Inhibitors Allergy Severe Verified 06/19/23 07:21 diltiazem Allergy Severe shortness Verified 06/19/23 07:21 of breath gabapentin [From Neurontin] Allergy Severe Verified 06/19/23 07:21 metoprolol Allergy Severe Verified 06/19/23 07:21 amlodipine AdvReac Severe swelling Verified 06/19/23 07:21 morphine AdvReac Severe Nausea Verified 06/19/23 07:21 [facility] Medical History (Updated 09/30/23 @ 00:01 by Eduin Agustin) Dyspnea ?R06.00 - Dyspnea, unspecified (ICD-10) Social History Smoking status: Never smoker Exam Narrative Exam Narrative: Nurses notes and vital signs reviewed and patient is not hypoxic. afebrile General: Well-appearing and in no apparent distress. Skin: Warm, dry, no pallor noted. No rash. Head: Normocephalic, atraumatic Eye: Pupils are equal, round and EOMI. No scleral icterus. Ears, Nose, Mouth, and Throat: Oral mucosa is moist Cardiovascular: Tachycardia. Respiratory: No accessory muscle use or respiratory distress. Lungs are clear to auscultation, no wheezing, rales or rhonchi Musculoskeletal: normal ROM, no calf or popliteal tenderness, no lower extremity edema/swelling Neurological: A&O x4. No cranial nerve dysfunction observed. No truncal ataxia. Moves all extremities. Sensation intact. Psychiatric: Cooperative and interactive. Normal mood and affect. Constitutional Vital Signs, click to edit/add: Last Vital Signs Pulse 115 H 09/30/23 00:21 Resp 16 09/30/23 00:21 BP 98/73 09/30/23 00:21 Pulse Ox 98 09/30/23 00:21 O2 Del Method Room Air 09/29/23 22:53 Course Vital Signs Vital signs: Vital Signs Pulse Rate 180 H 09/29/23 22:53 Respiratory Rate 18 09/29/23 22:53 Blood Pressure 159/80 H 09/29/23 22:53 Pulse Oximetry 97 09/29/23 22:53 Oxygen Delivery Method Room Air 09/29/23 22:53 Pulse Rate 115 H 09/30/23 00:21 Respiratory Rate 16 09/30/23 00:21 Blood Pressure 98/73 09/30/23 00:21 Pulse Oximetry 98 09/30/23 00:21 Oxygen Delivery Method Room Air 09/29/23 22:53 Medical Decision Making MDM Narrative Medical decision making narrative: Patient was placed on cardiac cath tech and EKG obtained. Blood drawn and sent for evaluation, including blood cultures, lactate and procalcitonin per sepsis protocol. Portable chest x-ray was obtained. When the patient's white blood cell counts found to be elevated, although she is on cephalexin for UTI, I asked that respiratory panel be obtained and she was given IV Rocephin for sepsis coverage. The patient cannot tell me why she has Cardizem and metoprolol listed as allergies. She does not know the reaction that she has these medications and she cannot tell me why she was taking them previously or what happened to classify them as allergies. I ordered her received 5 mg of metoprolol IV while we awaited a call back from the revenue inspector on-call. I spoke with Dr. Brock and he recommended administration of amiodarone, 150 mg bolus over 10 minutes followed by 1 mg/min IV drip. She also received a Liter of NS IVF. White blood cell count elevated at 12.5. Normal hemoglobin and platelets. Unremarkable electrolytes. BUN/creatinine slightly elevated at 26, 1.4. LFTs negative glucose 155. Lactate negative. Troponin and BNP normal. Chest x-ray unremarkable. Heart rate improved after administration of the 150 mg dose of amiodarone. She is started on 1mg/min amiodarone drip. The patient will need to be admitted for new onset atrial fibrillation. Her primary care provider is Dr. Daigle. Call placed to the tele hospitalist to discuss. Thu Pineda and I discussed the case and we will admit to SDU. Patient agreeable to admission to [facility]. Medical Records Medical records reviewed: Yes I reviewed the patient's medical records Lab Data Lab results reviewed: Yes I reviewed the patient's lab results Labs: Lab Results 09/29/23 09/29/23 Range/Units 22:58 23:20 WBC 12.5 H (4.0-11.0) 10^3/uL RBC 4.50 (4.20-5.40) 10^6/uL Hgb 13.9 (12.0-16.0) g/dL Hct 42.9 (36.0-48.0) % MCV 95.3 (81.0-99.0) fL MCH 30.9 (26.7-34.0) pg MCHC 32.4 (29.9-35.2) g/dL RDW 13.0 (11.0-15.0) % Plt Count 262 (150-450) 10^3/uL MPV 10.8 (9.5-13.5) fL Seg Neuts % (Manual) 64.0 Lymphocytes % (Manual) 6.0 L (20.5-60.0) % Atypical Lymphs % (Man) 15.0 % Monocytes % (Manual) 14.0 H (1.7-12.0) % Eosinophils % (Manual) 1.0 (0.9-7.0) % Basophils % (Manual) 0.0 L (0.2-2.0) % Neutrophils # (Manual) 8.00 H (1.4-6.5) 10^3/uL Lymphocytes # (Manual) 0.75 L (1.20-3.80) 10^3/uL Abs Atypical Lymphs Man 1.87 Monocytes # (Manual) 1.75 H (0.30-0.80) 10^3/uL Eosinophils # (Manual) 0.12 (0.00-0.70) 10^3/uL Basophils # (Manual) 0.00 (0.00-0.10) 10^3/uL Toxic Granulation 3+ Sodium 139 (136-145) mmol/L Potassium 3.7 (3.5-5.1) mmol/L Chloride 102 (98-107) mmol/L Carbon Dioxide 24.2 (21.0-32.0) mmol/L Anion Gap 16.5 BUN 26.0 H (7.0-18.0) mg/dL Creatinine 1.41 H (0.55-1.02) mg/dL Est GFR ( Amer) 44 L (>=60) Est GFR (Non-Af Amer) 36 L (>=60) BUN/Creatinine Ratio 18.4 Glucose 155 H (74-106) mg/dL Lactate 2.0 (0.4-2.0) mmol/L Calcium 9.6 (8.5-10.1) mg/dL Total Bilirubin 1.3 H (0.2-1.0) mg/dL AST 18 (15-37) U/L ALT 13 L (14-59) U/L Alkaline Phosphatase 113 (46-116) U/L Troponin I High Sens 7.6 (4.0-51.3) pg/mL NT-Pro-B Natriuret Pep 559.0 (<=1800.0) pg/mL Total Protein 7.7 (6.4-8.2) g/dL Albumin 3.7 (3.4-5.0) g/dL Globulin 4.0 g/dL Albumin/Globulin Ratio 0.9 Procalcitonin <0.05 (0.00-0.50) ng/mL Urine Color Cancelled Urine Clarity Cancelled Urine pH Cancelled Ur Specific Ryan Cancelled Urine Protein Cancelled Urine Glucose (UA) Cancelled Urine Ketones Cancelled Urine Occult Blood Cancelled Urine Nitrite Cancelled Urine Bilirubin Cancelled Urine Urobilinogen Cancelled Ur Leukocyte Esterase Cancelled Urine RBC Cancelled Urine WBC Cancelled Ur Squamous Epith Cells Cancelled Ur Transition Epith Cell Cancelled Ur Renal Epithelial Cell Cancelled Urine Crystals Cancelled Calcium Carbonate Cryst Cancelled Calcium Phosphate Cryst Cancelled Calcium Oxalate Crystal Cancelled Cystine Crystals Cancelled Uric Acid Crystals Cancelled Triple Phos Crystals Cancelled Tyrosine Crystals Cancelled Amorphous Sediment Cancelled Urine Bacteria Cancelled Urine Casts Cancelled Fatty Casts Cancelled Hyaline Casts Cancelled Fine Granular Casts Cancelled Coarse Granular Casts Cancelled Waxy Casts Cancelled RBC Casts Cancelled Urine Starch Cancelled Urine Mucus Cancelled Urine Trichomonas Cancelled Urine Yeast Cancelled Urine Sperm Cancelled Ur Oval Fat Bodies Cancelled Ur Culture Indicated? Cancelled Imaging Data Chest x-ray: Radiologist's impression: ITS Impressions Chest X-Ray 09/29/23 23:03 IMPRESSION: No acute cardiopulmonary process in the chest. Electronically authenticated by: JOAQUIN CARPIO Date: 09/30/2023 00:14 ECG Data Attestation: I personally reviewed and interpreted this ECG as follows: Interpretation: #1) EKG interpretation: Emergency Department physician interpretation. Rapid atrial fibrillation at 175bpm. Marked ST depression with nonspecific ST and T wave changes. #2) Discharge Plan Discharge Chief Complaint: Chest Pain Clinical Impression: Atrial fibrillation, new onset, Atrial fibrillation with rapid ventricular response Patient Disposition: Admitted As Inpatient Time of Disposition Decision: 00:01
[2023-09-29 23:51] LABS: Alanine Aminotransferase 13 U/L (14-59); Albumin Globulin Ratio 0.9; Albumin Level 3.7 g/dL (3.4-5.0); Alkaline Phosphatase 113 U/L (46-116); Anion Gap 16.5; Aspartate Amino Transferase 18 U/L (15-37); BUN Creatinine Ratio 18.4; Bilirubin Total 1.3 mg/dL (0.2-1.0); Calcium 9.6 mg/dL (8.5-10.1); Carbon Dioxide 24.2 mmol/L (21.0-32.0); Chloride 102 mmol/L (98-107); Estimated GFR (African America 44 (>=60); Estimated GFR (Non-African Ame 36 (>=60); Glucose 155 mg/dL (74-106); Potassium 3.7 mmol/L (3.5-5.1); Sodium 139 mmol/L (136-145); Total Protein 7.7 g/dL (6.4-8.2)
[2023-09-29] MEDS: AMIODARONE IN DEXTROSE,ISO-OSM 360 MG/200 ML PLAST..BAG 33.333 MG IV (23:53)
[2023-09-29 23:57] LABS: Troponin I High Sensitivity 7.6 pg/mL (4.0-51.3)
[2023-09-30] VITALS (82 sets, daily range): BP systolic 88–126; BP diastolic 41–87; PULSE 56–144; RESP 5–24; TEMP 36.4–36.5; O2SAT 97–99; BMI 33.4
[2023-09-30 00:01] LABS: PROCALCITONIN <0.05 ng/mL (0.00-0.50)
[2023-09-30] MEDS: CEFTRIAXONE 1,000 MG in 0.9 % SODIUM CHLORIDE 50 ML 100 MG IV (00:01)
[2023-09-30 00:03] LABS: Eosinophils Absolute Manual 0.12 10^3/uL (0.00-0.70); Monocytes Absolute Manual 1.75 10^3/uL (0.30-0.80)
[2023-09-30 00:04] LABS: Atypical Lymphocytes Abs Man 1.87; Lymphocytes Absolute Manual 0.75 10^3/uL (1.20-3.80)
[2023-09-30 00:05] LABS: Toxic Granulation 3+
[2023-09-30 00:24] LABS: Adenovirus NOT DETECTED (NOT DETECTE); Bordetella parapertussis NOT DETECTED (NOT DETECTE); Coronavirus 229E NOT DETECTED (NOT DETECTE); Coronavirus HKU1 NOT DETECTED (NOT DETECTE); Coronavirus NL63 NOT DETECTED (NOT DETECTE); Coronavirus OC43 NOT DETECTED (NOT DETECTE); Human Metapneumovirus NOT DETECTED (NOT DETECTE); Human Rhinovirus/Enterovirus NOT DETECTED (NOT DETECTE); Influenza A NOT DETECTED (NOT DETECTE); Influenza B NOT DETECTED (NOT DETECTE); Mycoplasma pneumoniae NOT DETECTED (NOT DETECTE); Parainfluenza Virus 1 NOT DETECTED (NOT DETECTE); Parainfluenza Virus 2 NOT DETECTED (NOT DETECTE); Parainfluenza Virus 3 NOT DETECTED (NOT DETECTE); Parainfluenza Virus 4 NOT DETECTED (NOT DETECTE); Respiratory Syncytial Virus NOT DETECTED (NOT DETECTE); SARS-CoV-2 NOT DETECTED (NOT DETECTE)
[2023-09-30] MEDS: DILTIAZEM HCL 25 MG/5 ML VIAL 20 MG IV (01:06)
--- NOTE | 2023-09-30 01:43 | ECG_ITS ---
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
--- NOTE | 2023-09-30 01:44 | ECG_ITS ---
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
--- NOTE | 2023-09-30 02:58 | ECG_ITS ---
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
[2023-09-30 04:18] LABS: Clarity Urine CLEAR (CLEAR); Color Urine DK. ORANGE (YELLOW); Specific Gravity Urine 1.025 (1.005-1.025)
[2023-09-30 04:20] LABS: Bilirubin Urine COLOR INTERFERENCE (NEGATIVE); Blood Urine COLOR INTERFERENCE (NEGATIVE); Glucose Urine UA COLOR INTERFERENCE mg/dL (NEGATIVE); Ketones Urine COLOR INTERFERENCE mg/dL (NEGATIVE); Leukocyte Esterase Urine COLOR INTERFERENCE (NEGATIVE); Nitrite Urine COLOR INTERFERENCE (NEGATIVE); Protein Urine COLOR INTERFERENCE mg/dL (NEG/TRACE); Urobilinogen Urine COLOR INTERFERENCE EU/dL (0.2-1.0); pH Urine COLOR INTERFERENCE (5.0-9.0)
[2023-09-30 04:21] LABS: Urine Microscopic Indicated YES
[2023-09-30 04:27] LABS: Bacteria Urine TRACE #/HPF (NONE SEEN); Cast Seen? NONE SEEN #/LPF (NONE SEEN); Crystals Seen? None Seen #/HPF (None Seen); Mucus Urine SMALL (NONE SEEN); RBC Urine 0-2 #/HPF (0-2); Squamous Epithelial Cell Urine MODERATE #/LPF (NONE/RARE); Urine Culture Indicated NO
[2023-09-30 05:54] LABS: Basophils Absolute Auto 0.1 10^3/uL (0.0-0.1); Basophils Percent Auto 0.6 % (0.2-2.0); Eosinophils Percent Auto 0.5 % (0.9-7.0); Hematocrit 37.6 % (36.0-48.0); Hemoglobin 12.1 g/dL (12.0-16.0); Immature Granulocytes Abs Auto 0.03 10^3/uL (0.00-0.03); Immature Granulocytes Pct Auto 0.4 % (0.0-0.5); Lymphocytes Absolute Auto 1.9 10^3/uL (1.2-3.8); Lymphocytes Percent Auto 22.3 % (20.5-60.0); Mean Corpuscular HGB Conc 32.2 g/dL (29.9-35.2); Mean Corpuscular Hemoglobin 31.3 pg (26.7-34.0); Mean Corpuscular Volume 97.4 fL (81.0-99.0); Mean Platelet Volume 10.5 fL (9.5-13.5); Monocytes Absolute Auto 1.3 10^3/uL (0.3-0.8); Monocytes Percent Auto 14.6 % (1.7-12.0); Neutrophils Absolute Auto 5.3 10^3/uL (1.4-6.5); Neutrophils Percent Auto 61.6 % (43.0-75.0); Platelet Count 182 10^3/uL (150-450); Red Blood Count 3.86 10^6/uL (4.20-5.40); Red Cell Distribution Width 13.2 % (11.0-15.0); White Blood Count 8.6 10^3/uL (4.0-11.0)
[2023-09-30 06:08] LABS: Estimated Average Glucose 105 mg/dL; Glycohemoglobin A1C 5.3 % (4.5-6.2)
[2023-09-30 06:11] LABS: Alanine Aminotransferase 9 U/L (14-59); Albumin Globulin Ratio 0.8; Albumin Level 2.8 g/dL (3.4-5.0); Alkaline Phosphatase 85 U/L (46-116); Anion Gap 13.5; Aspartate Amino Transferase 8 U/L (15-37); BUN Creatinine Ratio 18.6; Bilirubin Total 0.7 mg/dL (0.2-1.0); Calcium 8.7 mg/dL (8.5-10.1); Carbon Dioxide 25.5 mmol/L (21.0-32.0); Chloride 108 mmol/L (98-107); Cholesterol 96 mg/dL (<=200); Estimated GFR (African America 54 (>=60); Estimated GFR (Non-African Ame 44 (>=60); Globulin 3.4 g/dL; Glucose 112 mg/dL (74-106); HDL Cholesterol 53 mg/dL (40-60); Sodium 143 mmol/L (136-145); Total Protein 6.2 g/dL (6.4-8.2); Triglycerides 118 mg/dL (<=150); VLDL CHOLESTEROL 23.6 mg/dL
[2023-09-30 06:12] LABS: Chol HDL Ratio 1.8
--- OUTSIDE RECORDS SUMMARY | 2023-09-30 06:27 | XMS_ITS | CCD ---
Author Name Unknown Address [address] [place] [address] Organization [facility] Care Team Providers Care Seconds Inspector Name Role Phone ASHLEY, FAN H. Referring [...] HOBrittany, PAT M Primary Care Unavailable SCULLIN, CHRISITE Admitting Unavailable SCULLIN, CHRISTIE Attending Unavailable HOBrittany, [...] Provider Pat Newell MD Primary Care Provider [phone] MD Pat Newell Primary Care Provider [phone] MD Pat Newell Referring Provider Self, Referral Attending Provider Unavailable Pat Newell MD Primary Care Provider MYLENE ALMEIDA Referring Unavailable HOPAT Soto M Primary Care Unavailable PAT NWEELL M Primary Care Unavailable ELLE, MYLENE Attending [...] Unavailable MD Pat Newell Primary Care Provider [phone] MD Pat Newell Referring Provider [phone] Self, Referral Attending Provider Unavailable Self, Referral [...] Enzyme (Serina) Inhibitors Drug Allergy 08-25-2020 [facility] Opioid Agonists (2 sources) Codeine; Translations: [morphine] Drug Allergy 04-04-2020 [facility] (5 sources) Angiotensin-conv erting enzyme inhibitor agent; Translations: [SERINA INHIBITORS] Drug Allergy 04-28-2012 [facility] (10 sources) Codeine; Translations: [CODEINE] Drug Allergy 04-28-2012 [facility] (9 sources) HYDROmorphone; Translations: [HYDROMORPHONE (BULK)] Drug Allergy 05-12-2012 [facility] (7 sources) Angiotensin-conv erting enzyme inhibitor agent Drug Allergy 04-28-2012 [facility] (7 sources) amLODIPine; Translations: [AMLODIPINE] Drug Allergy 04-24-2022 [facility] (3 sources) Acetaminophen; Translations: [acetaminophen] Drug Allergy 07-28-2017 [facility] (3 sources) HYDROcodone; Translations: [hydrocodone] Drug Allergy 07-28-2017 [facility] (5 sources) Meperidine; Translations: [meperidine] Drug Allergy 07-28-2017 [facility] (5 sources) Morphine; Translations: [morphine] Drug Allergy 07-28-2017 [facility] (1 source) Angiotensin Converting Enzyme (Serina) Inhibitors Drug allergy (disorder) 04-22-2013 [facility] (1 source) Codeine Drug Allergy 04-29-2013 [facility] (1 source) Meperidine Drug Allergy 04-29-2013 [facility] (1 source) Angiotensin Converting Enzyme (Serina) Inhibitors Drug allergy (disorder) 07-28-2017 [facility] (1 source) Amoxicillin; Translations: [AMOXICILLIN] Drug Allergy 03-13-2023 [facility] (1 source) gabapentin; Translations: [GABAPENTIN] Drug Allergy 05-25-2019 [facility] Medications Current Medications Medication Drug [...] Coronary arteriosclerosis; 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 We will inform provider. [facility] 36on 09-19-2023 36 Left voicemail for patient to schedule cardiopulmonary exercise test. [facility] Office Visiton 09-03-2023 Follow-up visit [id number] Brandi Hubbard cca 1945 F Date Provider Department Center 09/03/2023 [facility] Family History Problem Relation Age of Onset Coronary artery disease Father Hypertension Father Family Status - Relation Status Age at Father Level of Service:04705 [place] OFFICE/OUTPATIENT ESTABLISHED MOD MDM 30 MIN [facility] Documentationon 08-06-2023 Documentation [id number] Brandi Hubbard cca S 1945 F Date Provider Department Center 08/06/2023 [facility] UT HeartVAS Family History Problem Relation Age of Onset Coronary artery disease Father Hypertension Father Family Status - Relation Status Age at Father [facility] HPon 08-06-2023 HP H&P reviewed. The patient was examined and there are no changes to the H&P. [facility] NURSNOTEon 08-06-2023 NURSNOTE Patient to be seen i n clinic by Dr. Doran or nurse practitioner in 1 month to discuss VIOLA results and medical plan. Message left with [facility] to call patient with appoint date and time. Patient provided the number ([phone]) to call [facility] if she does not receive an appointment call by 08/08/2023. [facility] NURSNOTE Bedside swallow stud y completed and passed. [facility] NURSNOTE RN educated pt on d/ c instructions. RN encouraged pt to voice any questions or concerns. Pt verbalizes no questions or concerns at this time. Pt was wheeled off of unit with all of belongings. [facility] Prep for Procedureon 023 Prep for Procedure [id number] Brandi Hubbard cca 1945 F Date Provider Department [place] 08/06/2023 CLINTON PETERS [facility] CARD López Count Family History Problem Relation Age of Onset Coronary artery disease Father Hypertension Father Family Status - Relation Status Age at Father [facility] Telephoneon 07-28-2023 Telephone [id number] Brandi Hubbard cca 1945 F Date Provider Department Center 07/28/2023 [facility] PR HeartVAS Family History Problem Relation Age of Onset Coronary artery disease Father Hypertension Father Family Status - Relation Status Age at Father [facility] 37on 07-08-2023 37 *Resume lasix. Take 20mg daily x1 week then go back to every other day. *Have stress test done. *Watch your fluid intake. Try to limit to 2 liters a day. *Eat a low sodium diet. [facility] HPon 07-08-2023 HP Patient here for [facility] low up TB for SOB and chest pain. She was started on isosorbide. She is scheduled for outpatient stress test next week. She denies chest pain. SOB is improving. C/o LE edema which resolves by morning. C/o fatigue. Review of Systems Cardiovascular: Positive for leg swelling. All other systems reviewed and are negative. [facility] Office Visiton 07-08-2023 Follow-up visit [id number] Brandi Hubbard cca 1945 F Date Provider Department Center 07/08/2023 [facility]IN[facility]AH BET[facility]A [facility] Family History Problem Relation Age of Onset Coronary artery disease Father Hypertension Father Family Status - Relation Status Age at Father Level of Service:03499 [place] OFFICE/OUTPATIENT ESTABLISHED MOD [facility] 30-39 MIN Reason for Visit and Comments: Fatigue [46] Congestive Heart Failure [127] Edema [8551501129] Shortness of Breath [598954] Normal [facility] MM screening mammo BI w/CADo n 06-11-2023 MM screening mammo BI w/CAD [facility] [address] [place] [address] Mammography Report Signed Patient: Son Hubbard MR#: [id number] : 1945 Acct:[id number] Age/Sex: 78 / F ADM Date: 06/11/23 Loc: ME Room: Type: [facility] Attending Dr: Referral Self Copies to: Pat [...] Location: [facility] Transcribed By: [facility] 06/11/231203 Dictated By: Charlie Green II, MD 06/11/231200 Signed By: 06/11/23 120 [facility] Office Visiton 03-28-2023 Follow-up visit [id number] Brandi Hubbard cca 1945 F Date Provider Department Center 03/28/2023 [facility]INT[facility] PETERS [facility] Family History Problem Relation Age of Onset Coronary artery disease Father Hypertension Father Family Status - Relation Status Age at Father Level of Service:69055 NH OFFICE/OUTPATIENT ESTABLISHED LOW MDM 20-29 MIN Reason for Visit and Comments: Follow-up [706598] - 6 MONTH FOLLOW UP Normal [facility] INSULINon 11-13-2022 Insulin 16.2 uIU/mL Normal 2.6-24.9 [facility] Comment on above: Performed By: #### I NSULIN ####[facility] [id number] [address]Dr. Isi Britton CBC AUTO DIFFon 11-12-2022 BASO # 0.0 103/ul Normal 0.0-0.1 [facility] Comment on above: Performed By: #### C BC #### [facility] [address] [address] [address] Isi Britton Basophils/100 WBC (Bld) 0.6 % Normal 0.2-2.0 [facility] Comment on above: Performed By: #### C BC #### [facility] [address] [address] [address] Isi Britton EO # 0.1 103/ul Normal 0.0-0.7 [facility] Comment on above: Performed By: #### C BC #### [facility] [address] [address] [address] Isi Britton Eosinophils/100 WBC (Bld) 1.3 % Normal 0.9-7.0 [facility] Comment on above: Performed By: #### C BC #### [facility] [address] [place] [address] Dr. Isi Britton Erythrocyte distribution width (RBC) [Ratio] 13.1 % Normal 11.0-15.0 [facility] Comment on above: Performed By: #### C BC #### [facility] [address] [place] [address] Dr. Isi Britton Hematocrit (Bld) [Volume fraction] 40.1 % Normal 36.0-48.0 [facility] Comment on above: Performed By: #### C BC #### [facility] [address] [place] [address] Dr. Isi Britton Hemoglobin (Bld) [Mass/Vol] 13.5 g/dL Normal 12.0-16.0 [facility] Comment on above: Performed By: #### C BC #### [facility] [address] [place] [address] Dr. Isi Britton IG # 0.01 10e3/ul Normal 0.00-0.03 [facility] Comment on above: Performed By: #### C BC #### [facility] [address] [place] [address] Dr. Isi Britton IG % 0.2 % Normal 0.0-0.5 [facility] Comment on above: Performed By: #### C BC #### [facility] [address] [place] [address] Dr. Isi Britton LYMPH # 1.6 103/ul Normal 1.2-3.8 [facility] Comment on above: Performed By: #### C BC #### [facility] [address] [place] [address] Dr. Isi Britton Lymphocytes/100 WBC (Bld) 24.9 % Normal 20.5-60.0 [facility] Comment on above: Performed By: #### C BC #### [facility] [address] [place] [address] Dr. Isi Britton MANUAL DIFF REQ NO Normal [facility] Comment on above: Performed By: #### C BC #### [facility] [address] [place] [address] Dr. Isi Britton MCH (RBC) [Entitic mass] 31.9 pg Normal 26.7-34.0 [facility] Comment on above: Performed By: #### C BC #### [facility] [address] [place] [address] Dr. Isi Britton MCHC (RBC) [Mass/Vol] 33.7 g/dL Normal 29.9-35.2 [facility] Comment on above: Performed By: #### C BC #### [facility] [address] [place] [address] Dr. Isi Britton MCV (RBC) [Entitic vol] 94.8 fL Normal 81.0-99.0 [facility] Comment on above: Performed By: #### C BC #### [facility] [address] [place] [address] Dr. Isi Britton MONO # 0.6 103/ul Normal 0.3-0.8 [facility] Comment on above: Performed By: #### C BC #### [facility] [address] [place] [address] Dr. Isi Britton Monocytes/100 WBC (Bld) 10.1 % Normal 1.7-12.0 [facility] Comment on above: Performed By: #### C BC #### [facility] [address] [place] [address] Dr. Isi Britton NEUT # 3.9 103/ul Normal 1.4-6.5 [facility] Comment on above: Performed By: #### C BC #### [facility] [address] [place] [address] Dr. Isi Britton Neutrophils/100 WBC (Bld) 62.9 % Normal 43.0-75.0 [facility] Comment on above: Performed By: #### C BC #### [facility] [address] [place] [address] Dr. Isi Britton Platelet mean volume (Bld) [Entitic vol] 10.5 fL Normal 9.5-13.5 [facility] Comment on above: Performed By: #### C BC #### [facility] [address] [address] [address] Isi Britton PLT 220 103/ul Normal 150-450 [facility] Comment on above: Performed By: #### C BC #### [facility] [address] [address] [address] Isi Britton RBC 4.23 106/ul Normal 4.20-5.40 [facility] Comment on above: Performed By: #### C BC #### [facility] [address] [address] [address] Isi Britton WBC 6.2 103/ul Normal 4.0-11.0 [facility] Comment on above: Performed By: #### C BC #### [facility] [address] [place] [address] Dr. Isi Britton FREE T3on 11-12-2022 FREE T3 2.21 pg/mlL Normal 2.18-3.98 [facility] Comment on above: Performed By: #### L IPID, CMP, T7, FT3, TSH #### [facility] [address] [address] [address] Isi Britton FREE T4on 11-12-2022 Free T4 [Mass/Vol] 1.04 ng/dL Normal 0.76-1.46 [facility] Comment on above: Performed By: #### I RONI, FT4 ####[facility] [id number] [address]Dr. Isi Britton FREE THYROXINE INDEX T7on FTI 3.38 Normal 1.30-4.50 [facility] Comment on above: Performed By: #### L IPID, CMP, T7, FT3, TSH #### [facility] [address] [address] [address] Isi Britton T3U 36.0 % Normal 30.0-39.0 [facility] Comment on above: Performed By: #### L IPID, CMP, T7, FT3, TSH #### [facility] [address] [place] [address] Dr. Isi Britton T4 [Mass/Vol] 9.40 ug/dL Normal 4.80-13.90 [facility] Comment on above: Performed By: #### L IPID, CMP, T7, FT3, TSH #### [facility] [address] [address] [address] Isi Britton GLYCOHEMOGLOBIN A1Con 2022 ADA RECOMMENDATION SEE BELOW Normal [facility] Comment on above: Result Comment: ADA RECOMMENDED LIMIT 4.0 - 6.0 ADA THERAPEUTIC TARGET < 7.0 ACTION SUGGESTED > 7.0 Performed By: #### A 1C #### [facility] [address] [address] [address] Isi Britton Glucose [Mass/Vol] 111 mg/dL Normal [facility] Comment on above: Performed By: #### A 1C #### [facility] [address] [place] [address] Dr. Isi Britton HbA1c (Bld) [Mass fraction] 5.5 % Normal 4.5-6.2 [facility] Comment on above: Performed By: #### A 1C #### [facility] [address] [place] [address] Dr. Isi Britton IRONon 11-12-2022 Iron [Mass/Vol] 71.0 ug/dL Normal 50.0-170.0 [facility] Comment on above: Performed By: #### I RONI, FT4 #### [facility] [address] [place] [address] Dr. Isi Britton LIPID PROFILEon 11-12-2022 CHOL-HDL RATIO NORM SEE BELOW Normal [facility] Comment on above: Result Comment: 3.3 - 4.4 LOW RISK 4.4 - 7.1 AVERAGE RISK 7.1 - 11.0 MODERATE RISK >11.0 HIGH RISK Performed By: #### L IPID, CMP, T7, FT3, TSH #### [facility] [address] [place] [address] Dr. Isi Britton Cholesterol [Mass/Vol] 139 mg/dL Normal <=200 [facility] Comment on above: Performed By: #### L IPID, CMP, T7, FT3, TSH #### [facility] [address] [address] [address] Isi Britton Cholesterol in HDL [Mass/Vol] 70 mg/dL Critically high 40-60 [facility] Comment on above: Performed By: #### L IPID, CMP, T7, FT3, TSH #### [facility] [address] [address] [address] Isi Britton Cholesterol in LDL [Mass/Vol] 49.4 mg/dL Normal [facility] Comment on above: Performed By: #### L IPID, CMP, T7, FT3, TSH #### [facility] [address] [address] [address] Isi Britton Cholesterol.total/C holesterol in HDL [Mass ratio] 2.0 {ratio} Normal [facility] Comment on above: Performed By: #### L IPID, CMP, T7, FT3, TSH #### [facility] [address] [address] [address] Isi Britton HDL NORMAL > or = 60 mg/dl - LO W CARDIOVASCULAR RISK <40 mg/dl - HIGH CARDIOVASCULAR RISK Normal [facility] Comment on above: Performed By: #### L IPID, CMP, T7, FT3, TSH #### [facility] [address] [address] [address] Isi Britton LDL CALC NORMAL SEE BELOW Normal [facility] Comment on above: Result Comment: <100 mg/dl OPTIMAL 100 - 129 mg/dl NEAR OR ABOVE OPTIMAL 130 - 159 mg/dl BORDERLINE HIGH 160 - 189 mg/dl HIGH >190 mg/dl VERY HIGH Performed By: #### L IPID, CMP, T7, FT3, TSH #### [facility] [address] [address] [address] Isi Britton Triglyceride [Mass/Vol] 98 mg/dL Normal <=150 [facility] Comment on above: Performed By: #### L IPID, CMP, T7, FT3, TSH #### [facility] [address] [address] [address] Isi Britton VLDL CALC 19.6 mg/dL Normal [facility] Comment on above: Performed By: #### L IPID, CMP, T7, FT3, TSH #### [facility] [address] [address] [address] Isi Britton PROF 14(COMP METB)on 023 Albumin [Mass/Vol] 3.9 g/dL Normal 3.4-5.0 [facility] Comment on above: Performed By: #### L IPID, CMP, T7, FT3, TSH #### [facility] [address] [place] [address] Dr. Isi Britton Albumin/Globulin [Mass ratio] 1.2 {ratio} Normal [facility] Comment on above: Performed By: #### L IPID, CMP, T7, FT3, TSH #### [facility] [address] [place] [address] Dr. Isi Britton ALP [Catalytic activity/Vol] 99 U/L Normal 46-116 [facility] Comment on above: Performed By: #### L IPID, CMP, T7, FT3, TSH #### [facility] [address] [place] [address] Dr. Isi Britton ALT [Catalytic activity/Vol] 26 U/L Normal 14-59 [facility] Comment on above: Performed By: #### L IPID, CMP, T7, FT3, TSH #### [facility] [address] [place] [address] Dr. Isi Britton Anion gap [Moles/Vol] 13.1 mmol/L Normal [facility] Comment on above: Performed By: #### L IPID, CMP, T7, FT3, TSH #### [facility] [address] [place] [address] Dr. Isi Britton AST [Catalytic activity/Vol] 20 U/L Normal 15-37 [facility] Comment on above: Performed By: #### L IPID, CMP, T7, FT3, TSH #### [facility] [address] [place] [address] Dr. Isi Britton Bilirubin [Mass/Vol] 0.9 mg/dL Normal 0.2-1.0 [facility] Comment on above: Performed By: #### L IPID, CMP, T7, FT3, TSH #### [facility] [address] [address] [address] Isi Britton Calcium [Mass/Vol] 9.4 mg/dL Normal 8.5-10.[address] [facility] Comment on above: Performed By: #### L IPID, CMP, T7, FT3, TSH #### [facility] [address] [address] [address] Isi Britton Chloride [Moles/Vol] 104 mmol/L Normal 98-107 [facility] Comment on above: Performed By: #### L IPID, CMP, T7, FT3, TSH #### [facility] [address] [place] [address] Dr. Isi Britton CO2 [Moles/Vol] 29.2 mmol/L Normal 21.0-32.0 [facility] Comment on above: Performed By: #### L IPID, CMP, T7, FT3, TSH #### [facility] [address] [place] [address] Dr. Isi Britton Creatinine [Mass/Vol] 1.36 mg/dL Critically high 0.55-1.02 [facility] Comment on above: Performed By: #### L IPID, CMP, T7, FT3, TSH #### [facility] [address] [place] [address] Dr. Isi Britton EGFR-AF BULGARIAN 46 mL/min/1.73m2 Critically low >=60 [facility] Comment on above: Performed By: #### L IPID, CMP, T7, FT3, TSH #### [facility] [address] [place] [address] Dr. Isi Britton EGFR-NON AF BULGARIAN 38 mL/min/1.73m2 Critically low >=60 [facility] Comment on above: Performed By: #### L IPID, CMP, T7, FT3, TSH #### [facility] [address] [place] [address] Dr. Isi Britton Globulin (S) [Mass/Vol] 3.3 g/dL Normal [facility] Comment on above: Performed By: #### L IPID, CMP, T7, FT3, TSH #### [facility] [address] [address] [address] Isi Britton Glucose [Mass/Vol] 107 mg/dL Critically high 74-106 [facility] Comment on above: Performed By: #### L IPID, CMP, T7, FT3, TSH #### [facility] [address] [address] [address] Isi Britton Potassium [Moles/Vol] 4.3 mmol/L Normal 3.5-5.1 [facility] Comment on above: Performed By: #### L IPID, CMP, T7, FT3, TSH #### [facility] [address] [place] [address] Dr. Isi Britton Protein [Mass/Vol] 7.2 g/dL Normal 6.4-8.[address] [facility] Comment on above: Performed By: #### L IPID, CMP, T7, FT3, TSH #### [facility] [address] [place] [address] Dr. Isi Britton Sodium [Moles/Vol] 142 mmol/L Normal 136-[address] [facility] Comment on above: Performed By: #### L IPID, CMP, T7, FT3, TSH #### [facility] [address] [place] [address] Dr. Isi Britton Urea nitrogen [Mass/Vol] 24.0 mg/dL Critically high 7.0-18.0 [facility] Comment on above: Performed By: #### L IPID, CMP, T7, FT3, TSH #### [facility] [address] [place] [address] Dr. Isi Britton Urea nitrogen/Creatinine [Mass ratio] 17.6 mg/mg Normal [facility] Comment on above: Performed By: #### L IPID, CMP, T7, FT3, TSH #### [facility] [address] [place] [address] Dr. Isi Britton TSHon 11-12-2022 TSH 1.802 uIU/mL Normal 0.358-3.740 [facility] Comment on above: Performed By: #### L IPID, CMP, T7, FT3, TSH #### [facility] [address] [place], [place] [address] Dr. Isi Britton Covid-19 PCR ([facility])on 09-11 SARS-CoV-2 (COVID-19) RNA ERICK+probe Ql (Unsp spec) Not detected Normal NOT DETECTED [facility] Comment on above: Result Comment: This test is not yet approved or cleared by the [place] FDA. When there are no FDA-approved or cleared tests available, and other criteria are met, FDA can make tests available under an emergency access mechanism called an Emergency Use Authorization (EUA). The EUA for this test is supported by the [employer] of Health and Human Service's (HHS's) declaration [...] consistent with SARS-CoV-2. Performed By: #### C [facility] ####[facility] [id number] [place], [place] [address]VoDr. Isi Britton ECHOCARDIO M/2D COMPLETEon 1 09-09-2021 ECHOCARDIO M/2D COMPLETE Patient: SON HUBBARD Exam Date: 07/10/2022 : 1945 Gender:F Ordering : DR CLINTON DORAN M.D. Admission #: [id number] Family : DR PAT NEWELL . Order #: [id number] CLICK HERE TO VIEW EXAM ECHOCARDIOGRAM REPORT [...] Johnson M.D. on 07/10/2022 at 15:37 Normal [facility] ANES POSTPROC EVALon 05- 022 ANES POSTPROC EVAL HNO ID: [id number] Author: Abner Cox II, DO Service: Anesthesiology Author Type: Anesthesiologist Type: Anesthesia Postprocedure Evaluation Filed: 05/15/2022 11:10 AM Note Text: POST ANESTHESIA EVALUATION NOTE : 1945 Procedure Summary Date: 05/15/22 Room / Location: [address] Anesthesia Start: 928 Anesthesia Stop: 949 [...] May 15, 2022 TIME: 11:10 AM CSN: [id number] Normal [facility] ANES PRE-OPon 05-15-2022 ANES PRE-OP HNO ID: [id number] Author: Abner Cox II, DO Service: Anesthesiology Author Type: Anesthesiologist Type: Anesthesia Preprocedure Evaluation Filed: 05/15/2022 8:52 AM Note Text: ANESTHESIOLOGY DAY OF SURGERY NOTE : 1945 Procedure Information Date/Time: 05/15/22 0930 Procedures: PHACOEMULSIFICATION CATARACT IMPLANT INTRAOCULAR LENS W/O ENDOSCOPIC CYCLOPHOTOCOAGULATION (Right: Eye) OPHTHALMIC BIOMETRY BY PARTIAL COHERENCE INTERFEROMETRY W/INTRAOCULAR LENS POWER CALCULATION (Right: Eye) Location: [address] Surgeons: Mylene Almeida V, MD Estimated [...] and consent discussed: yes. Patient / Responsible Green Party agrees to proceed: yes Patient / [...] May 15, 2022 TIME: 8:51 AM CSN: [id number] [facility] OPERATIVE NOon 05-15-2022 OPERATIVE NO HNO ID: [id number] Author: Mylene Almeida V, MD Service: Ophthalmology Author Type: Physician Type: Operative Report Filed: 05/15/2022 9:46 AM Note Text: OPERATIVE REPORT DATE OF SERVICE: May 15, 2022 PRIMARY SURGEON: Mylene Almeida M.D. E COMMERCE MERCHANT: None Procedure(s) (LRB): PHACOEMULSIFICATION CATARACT IMPLANT INTRAOCULAR [...] corneal incision was created temporally with a Sioux blade then a 2.4 mm keratome. The [...] Implant Name Type Inv. Item Serial No. Health And Wellness Advisor Lot No. LRB No. Used Action Model No. LENS IOL 0D +18 TALAT UV ABS - [id number] Intraocular Lens LENS IOL 0D +18 TALAT UV ABS [id number] SHRAVAN [employer] SURGICAL Right 1 Implanted [id number] was inserted [...] 9:44 AM - Comanage with Dr Wilson; [facility] POD #1 Mylene ALMEIDA MD [facility] ANES POSTPROC EVALon 022 ANES POSTPROC EVAL HNO ID: [id number] Author: Cristian Parker MD Service: Anesthesiology Author Type: Anesthesiologist Type: Anesthesia Postprocedure Evaluation Filed: 05/01/2022 11:15 AM Note Text: POST ANESTHESIA EVALUATION NOTE : 1945 Procedure Summary Date: 05/01/22 Room / Location: [address] Anesthesia Start: 4 Anesthesia Stop: 1103 [...] May 01, 2022 TIME: 11:14 AM CSN: [id number] Normal [facility] ANES PRE-OPon 05-01-2022 ANES PRE-OP HNO ID: [id number] Author: Cristian Parker MD Service: Anesthesiology Author Type: Anesthesiologist Type: Anesthesia Preprocedure Evaluation Filed: 05/01/2022 10:04 AM Note Text: ANESTHESIOLOGY DAY OF SURGERY NOTE : 1945 Procedure Information Date/Time: 05/01/22 1030 Procedures: PHACOEMULSIFICATION CATARACT IMPLANT INTRAOCULAR LENS W/O ENDOSCOPIC CYCLOPHOTOCOAGULATION (Left: Eye) OPHTHALMIC BIOMETRY BY PARTIAL COHERENCE INTERFEROMETRY W/INTRAOCULAR LENS POWER CALCULATION (Left: Eye) Location: [place] [address] / [facility] Surgeons: Mylene Almeida V, MD Estimated body [...] and consent discussed: yes. Patient / Responsible Green Party agrees to proceed: yes Patient / [...] May 01, 2022 TIME: 10:03 AM CSN: [id number] [facility] NURSING PROGon 05-01-2022 NURSING PROG HNO ID: [id number] Author: Deepika Stephen RN Service: ? Author [...] Deepika Stephen RN In Department: AMBULATORY SURGERY [facility] OPERATIVE NOon 05-01-2022 OPERATIVE NO HNO ID: [id number] Author: Mylene Almeida V, MD Service: Ophthalmology Author Type: Physician Type: Operative Report Filed: 05/01/2022 11:01 AM Note Text: OPERATIVE REPORT DATE OF SERVICE: May 01, 2022 PRIMARY SURGEON: Mylene Almeida M.D. E COMMERCE MERCHANT: None Procedure(s) (LRB): PHACOEMULSIFICATION CATARACT IMPLANT INTRAOCULAR [...] corneal incision was created temporally with a Sioux blade then a 2.4 mm keratome. The [...] Implant Name Type Inv. Item Serial No. Health And Wellness Advisor Lot No. LRB No. Used Action Model No. LENS IOL 0D +19.5 TALAT UV ABS - [id number] Intraocular Lens LENS IOL 0D +19.5 TALAT UV ABS [id number] [employer] SURGICAL Left 1 Implanted [id number] [...] 10:59 AM - Comanage with Dr Wilson; [facility] POD #1 Mylene ALMEIDA MD [facility] HISTORY PHYSICALon HISTORY PHYSICAL HNO ID: [id number] Author: Chantal Can APRN.COLLAR STITCHER Service: ? Author Type: Nurse Practitioner Type: [...] fevers. Neuro: No history of TIA's, stroke, WASHING MACHINE ASSEMBLER tumor, impaired sensorium, hemiplegia, paraplegia or quadraplegia. No neurological symptoms or problems. Respiratory: No history of current cough or dyspnea, or pneumonia in the past 6 weeks. No history of respiratory/pulmonary symptoms or problems. 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 Normal [facility] Covid-19 PCR (CVDTBH)on 03-12 SARS-CoV-2 (COVID-19) RNA ERICK+probe Ql (Unsp spec) Not detected Normal NOT DETECTED [facility] Comment on above: Result Comment: This test is not yet approved or cleared by the [place] FDA. When there are no FDA-approved or cleared tests available, and other criteria are met, FDA can make tests available under an emergency access mechanism called an Emergency Use Authorization (EUA). The EUA for this test is supported by the [place] of Health and Human Service's (HHS's) declaration [...] consistent with SARS-CoV-2. Performed By: #### C [facility] #### [facility] [address] [place] [address] Dr. Isi Birmingham 01-11-2022 CNPN Telephone (OPHTLN) SON HUBBARD ([id number]) 1945 F Date Time Provider Department 01/11/22 MYLENE ALMEIDA During your visit today, we recorded the following information about you: Hernan Vences 01/11/2022 11:37 AM Signed LVM for patient to schedule at Cataract Evaluation with Dr. Almeida in [place] per faxed referral from Dr. Wilsno. First attempt 01/11/22. Referral scanned into chart. [...] with Dr. Almeida for March 07 in [place] Allergies As of Date: 01/11/2022 Noted Allergy [...] Status:Closed by HERNAN VENCES on 01/16/22 Normal [facility] C REACTIVE PROTEINon 021 CRP [Mass/Vol] 5.1 mg/L Normal 0.0-7.0 [facility] Comment on above: Performed By: #### 6 1405 #### [address] CERVICAL SPINE 2 OR 3 [facility] 03-12-2021 CERVICAL SPINE 2 OR 3 [facility] Department of Radiology [address] [place] [phone] ===== Patient Name: SON HUBBARD : 1945 Sex: F Age: Race: White Pt. Location: [facility] Patient Status: D Ordered Date: 03/12/2021 4:00:00 PM Completed Date: 03/12/2021 04:25 PM Requesting Provider: REZA HARVEY Attending Provider: REZA HARVEY Report Copy To: Signs & Symptoms: M54.2 Cervicalgia I10 History: Radhika Comments: Exam: CERVICAL SPINE 2 OR 3 [facility] ===== CERVICAL SPINE 2 OR 3 [facility] 03/12/2021 4:25 PM CLINICAL INDICATIONS: M54.2 [...] curvature. Electronically signed: Rosendo Salvador. Transcribed by: [email or web address], User Resident: Electronically Signed by: ROSENDO SALVADOR @ 03/13/2021 08:58 AM Normal [facility] LUMBAR SPINE 2 OR 3 [facility] LUMBAR SPINE 2 OR 3 [facility] Department of Radiology [address] [place] [phone] ===== Patient Name: SON HUBBARD : 1945 Sex: F Age: Race: White Pt. Location: 264 Patient Status: D Ordered Date: 03/12/2021 4:00:00 PM Completed Date: 03/12/2021 04:25 PM Requesting Provider: REZA HARVEY Attending Provider: REZA HARVEY Report Copy To: Signs & Symptoms: M54.5 Low back pain I10 History: [place] Comments: Exam: LUMBAR SPINE 2 OR 3 [facility] ===== LUMBAR SPINE 2 OR 3 [facility] 03/12/2021 4:25 PM CLINICAL INDICATIONS: M54.5 [...] levels. Electronically signed: Rosendo Salvador. Transcribed by: [email or web address], User Resident: Electronically Signed by: ROSENDO SALVADOR @ 03/13/2021 10:49 AM Normal [facility] S-I JOINTS MIN 4 [facility] 03-12 S-I JOINTS MIN 4 [facility] Department of Radiology [address] [place] [phone] ===== Patient Name: SON HUBBARD : 1945 Sex: F Age: Race: White Pt. Location: [facility] Patient Status: D Ordered Date: 03/12/2021 4:00:00 PM Completed Date: 03/12/2021 04:25 PM Requesting Provider: REZA HARVEY Attending Provider: REZA HARVEY Report Copy To: Signs & Symptoms: M54.5 Low back pain I10 History: [place] Comments: Exam: S-I JOINTS MIN 4 [facility] [...] report. Electronically signed: Brisa [place]. Transcribed by: [email or web address], User Resident: HARRISON HUNTER Electronically Signed by: BRISA JACKSON @ 03/13/2021 10:46 AM I personally read this/these film(s) with this resident Normal [facility] SEDIMENTATION RATEon 021 SED RATE 37 mm/hr High 0-20 [facility] Comment on above: Performed By: #### 5 6506 #### [facility] [address] [facility]. [address] Cardiovascular Lab Reporton 05-12-2020 Cardiovascular Lab Report [facility] Patient Name: Son Hubbard [facility] MR #: [id number] Physician: Clinton Pham Department of Cornelio Doran Medicine Service Date: 05/11/2020 Division of Birthdate: 1945 Cardiology Room #: Adult Cardiovascular Services [facility] [address] [place] [address] Cardiovascular Laboratory Report INDICATION: The patient is a 75-year-old woman, who recently was evaluated in Cardiology Clinic because of a class 3 heart failure symptoms. She was evaluated by initially an echocardiography, then a transesophageal echocardiogram that showed mdhs-lu-ptctjkhq mitral regurgitation and mild aortic valve regurgitation. [...] signed informed consent. She was brought to laboratory technology teacher in a fasting state. Modified Dom's test was favorable on the left. Access in the left radial artery was obtained using micropuncture technique. A 6-Angolan x 11 cm Hydrophilic sheath was advanced. [...] coronary artery. This was exchanged to a 6-Angolan AR2 guiding catheter followed by a 6-Angolan AL1 guiding catheter, which was able to engage the right coronary artery. Initial angiography was performed. A Zyncd wire was advanced into the distal RCA. An Emerge 3.0 x 15 mm balloon was used to perform balloon dilatation at 8 atmospheres in the proximal RCA. Angiography revealed suboptimal results, this was treated using a Synergy 3.0 x 20 mm drug-eluting stent deployed at 12 atmospheres and post dilated using NC Quantum Benjamin 3.0 x 15 mm noncompliant balloon inflated [...] Doran M.D. Date Trans: 05/12/2020 06:46 Tommy/cale [id number] cc: Pat Newell M.D. [address] [place] [id number] Normal [facility] BNP (B-TYPE NATRIURETIC PEPT EFE)on 04-05-2020 Natriuretic peptide B (Bld) [Mass/Vol] 26 pg/mL Normal 0-100 [facility] Comment on above: Order Comment: No: D o not add to previous draw Result Comment: Give n the appropriate clinical setting a BNP result of >100 pg/mL indicates congestive heart failure. Performed By: #### 8 5123 #### [facility] [address] CBC COMPLETE BLOOD COUNTon 0 04-05-2020 Erythrocyte distribution width (RBC) [Ratio] 13.1 % Normal 11.5-15.0 [facility] Comment on above: Order Comment: No: D o not add to previous draw Performed By: #### 5 0608 #### [facility] [address] [facility] [place] [address], [facility] Hematocrit (Bld) [Volume fraction] 42.1 % Normal 36.0-45.0 [facility] Comment on above: Order Comment: No: D o not add to previous draw Performed By: #### 5 0608 #### [facility] [address] [place] [address], [facility] Hemoglobin (Bld) [Mass/Vol] 14.3 g/dL Normal 12.0-15.0 [facility] Comment on above: Order Comment: No: D o not add to previous draw Performed By: #### 5 0608 #### [facility] [address] [place] [address], [facility] MCH (RBC) [Entitic mass] 31.0 pg Normal 27.0-33.0 [facility] Comment on above: Order Comment: No: D o not add to previous draw Performed By: #### 5 0608 #### [facility] [address] [place] [address], [facility] MCHC (RBC) [Mass/Vol] 34.0 g/dL Normal 32.0-35.0 [facility] Comment on above: Order Comment: No: D o not add to previous draw Performed By: #### 5 0608 #### [facility] [address] [place] [address], [facility] MCV (RBC) [Entitic vol] 91.3 fL Normal 82.0-98.0 [facility] Comment on above: Order Comment: No: D o not add to previous draw Performed By: #### 5 0608 #### [facility] [address] Nucleated RBC/100 WBC (Bld) [Ratio] 0 % Normal 0-0 [facility] Comment on above: Order Comment: No: D o not add to previous draw Performed By: #### 5 0608 #### [facility] [address] [facility] [address], [facility] PLAT CNT 249 10*3/uL Normal 150-400 [facility] Comment on above: Order Comment: No: D o not add to previous draw Performed By: #### 5 0608 #### [facility] [address] [facility] [place] [address], [facility] RBC (Bld) [#/Vol] 4.61 10*6/uL Normal 3.80-5.00 [facility] Comment on above: Order Comment: No: D o not add to previous draw Performed By: #### 5 0608 #### [facility] [address] [place] [address], [facility] WBC (Bld) [#/Vol] 6.32 10*3/uL Normal 4.00-10.60 [facility] Comment on above: Order Comment: No: D o not add to previous draw Performed By: #### 5 0608 #### [facility] [address] [place] [address], [facility] Erythrocyte distribution width (RBC) [Ratio] 13.0 % Normal 11.5-15.0 [facility] Comment on above: Order Comment: No: D o not add to previous draw Performed By: #### 5 0608 #### [facility] [address] [place] [address], [facility] Hematocrit (Bld) [Volume fraction] 40.2 % Normal 36.0-45.0 [facility] Comment on above: Order Comment: No: D o not add to previous draw Performed By: #### 5 0608 #### [facility] [address] [place] [address], [facility] Hemoglobin (Bld) [Mass/Vol] 13.7 g/dL Normal 12.0-15.0 [facility] Comment on above: Order Comment: No: D o not add to previous draw Performed By: #### 5 0608 #### [facility] [address] [place] [id number], [facility] MCH (RBC) [Entitic mass] 31.4 pg Normal 27.0-33.0 [facility] Comment on above: Order Comment: No: D o not add to previous draw Performed By: #### 5 0608 #### [facility] [address] [place] [address], [facility] MCHC (RBC) [Mass/Vol] 34.1 g/dL Normal 32.0-35.0 [facility] Comment on above: Order Comment: No: D o not add to previous draw Performed By: #### 5 0608 #### [facility] [address] [place] [address], [facility] MCV (RBC) [Entitic vol] 92.0 fL Normal 82.0-98.0 [facility] Comment on above: Order Comment: No: D o not add to previous draw Performed By: #### 5 0608 #### [facility] [address] [facility]. [address] Nucleated RBC/100 WBC (Bld) [Ratio] 0 % Normal 0-0 [facility] Comment on above: Order Comment: No: D o not add to previous draw Performed By: #### 5 0608 #### [facility] [address] [place] [address], [facility] PLAT CNT 209 10*3/uL Normal 150-400 [facility] Comment on above: Order Comment: No: D o not add to previous draw Performed By: #### 5 0608 #### [facility] [address] RBC (Bld) [#/Vol] 4.37 10*6/uL Normal 3.80-5.00 [facility] Comment on above: Order Comment: No: D o not add to previous draw Performed By: #### 5 0608 #### [facility] [address] [place] [address], [facility] WBC (Bld) [#/Vol] 5.97 10*3/uL Normal 4.00-10.60 [facility] Comment on above: Order Comment: No: D o not add to previous draw Performed By: #### 5 0608 #### [facility] [address] TROPONIN-Ion 04-05-2020 Troponin I.cardiac [Mass/Vol] 0.07 ng/mL High 0.00-0.04 [facility] Comment on above: Order Comment: This order is a replacement of the rejected order with accession number [id number]. Result Comment: REFE RENCE RANGES: 0.00 - 0.04 ng/ml NORMAL 0.05 - 0.50 ng/ml INDETERMINATE > 0.50 ng/ml CONSISTENT WITH AN M.I. Performed By: #### 3 5200 #### [facility] [address] [facility]. [address] Cardiovascular Lab Reporton 04-04-2020 Cardiovascular Lab Report [facility] Patient Name: Son Hubbard [facility] S MR #: [id number] Department of Physician: Clinton Ankit Jerri Doran M.D. Division of Service Date: 04/04/2020 Cardiology Birthdate: 1945 Adult Cardiovascular Room #: [facility] [address] [facility]. [place], [place] [address] Cardiovascular Laboratory Report INDICATION: Son Hubbard is a 75-year-old woman, who was recently evaluated in Cardiology Clinic after a recent admission to the [facility] with acute onset shortness of breath and finding on echocardiogram of possible severe mitral regurgitation. She continued to be symptomatic and was referred for further investigation of her recent onset symptoms by a transesophageal echocardiography that showed evidence of kitz-bx-kuxuuvls mitral regurgitation. She was then referred for [...] informed consent. She was brought to the laboratory technology teacher in a fasting state. The right neck area was prepped and draped in the usual fashion. Using micropuncture technique and ultrasound guidance, the right internal jugular vein was accessed. A 6-Angolan x 11 cm sheath was placed. A 6-Angolan Mendez catheter was used for right catheterization with measurement of pressures and calculation of cardiac output using the estimated Elizabeth method. Mendez catheter was removed. Modified Dom's test was favorable on the right. Access in the right radial artery was obtained using micropuncture technique. A 6-Angolan x 11 cm Hydrophilic sheath was advanced. Verapamil was given through the sheath and heparin was administered intravenously. Bilateral selective coronary angiography was then performed using 5-Angolan JR5 and 5-Angolan multipurpose catheters for engagement of the right coronary artery and a 5-Angolan JL3.5 diagnostic catheter for engagement of the left coronary artery. Catheters were removed. Additional heparin was given as needed and therapeutic ACT confirmed during the rest of the procedure. A 6-Angolan XB3.0 guiding catheter was advanced and used [...] 11 atmospheres and post dilated using NC ItsGoinOn Benjamin 3.25 x 12 mm noncompliant balloon inflated [...] 2- (more content not included)... Normal [facility] *SARS-CoV-2 COVID-19on 03-31 SARS-CoV-2 (COVID-19) RNA ERICK+probe Ql (Unsp spec) Not detected Normal Not Detected [facility] Comment on above: Order Comment: The A ptima SARS-CoV-2 assay is a nucleic acid amplification test intended for the qualitative detection of RNA from SARS-CoV-2 isolated and purified from nasopharyngeal (SIFTING OPERATOR),oropharyngeal (OP), nasal swab, sputum, and bronchoalveolar lavage (BAL) specimens from patients with signs and symptoms of infection who are suspected of COVID-19. Results are for the identification of SARS-CoV-2 RNA. The SARS-CoV-2 RNA is generally detectable during the acute phase of infection. The Aptima SARS-CoV-2 Assay on the Cloud[employer] and Eva Fusion system is intended for use by laboratory personnel specifically instructed and trained in the operation of the Eva and Eva Fusion system. The Aptima SARS-CoV-2 assay is [...] information. Performed By: #### 3 1792 #### [facility] [address] [facility] [place] [address], [facility] CONSULTATIONon 03-02-[address] [address] CONSULTATION PATIENT NAME: SON HUBBARD : 1945 MED REC NO: [id number] ROOM: R254 ACCOUNT NO: [id number] ADMIT DATE: 02/24/2019 PROVIDER: Francis Holguin MD [...] and S2 are normal. No murmurs appreciated. 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 Eye [...] the patient. FRANCIS HOLGUIN MD [id number] Doc#: [id number] CC: Normal [facility] Homocysteineon 03-02-2019 Homocysteine 14.5 umol/L Normal 0.0-15.0 [facility] Comment on above: Performed By: #### P T #### [facility] [address] [address] TSH w/out Reflexon 9 TSH Qn 3.890 uIU/mL Critically high 0.440-3.86 [facility] [place] Comment on above: Performed By: #### P T #### [facility] [address] [place] [address] Vitamin B12 and Folateon Cobalamin (Vitamin B12) [Mass/Vol] 537 pg/mL Normal 232-1245 [facility] Comment on above: Performed By: #### P T #### [facility] [address] [place] [address] Folate 11.6 ng/mL Normal 7.3-26.1 [facility] Comment on above: Result Comment: As o f 16, the methodology has changed. Results from this methodology should not be compared with results from previous methodology. Performed By: #### P T #### [facility] [address] [place] [address] Urinalysis, reflex to cultur erik 02-28-2019 Bilirubin Ql (U) Negative Normal Negative [facility] Comment on above: Performed By: #### B MP #### [facility] [address] [place] [address] Clarity (U) Clear Normal Clear [facility] Comment on above: Performed By: #### B MP #### [facility] [address] [place] [address] Color (U) Yellow Normal Straw/Anderson [facility] Comment on above: Performed By: #### B MP #### [facility] [address] [place] [address] Glucose Ql (U) Negative Normal Negative [facility] Comment on above: Performed By: #### B MP #### [facility] [address] [place] [address] Hemoglobin Ql (U) Negative Normal Negative [facility] Comment on above: Performed By: #### B MP #### [facility] [address] [place] [address] Ketones Ql (U) Negative Normal Negative [facility] Comment on above: Performed By: #### B MP #### [facility] [address] [place] [address] Leukocyte esterase Test strip Ql (U) Negative Normal Negative [facility] Comment on above: Performed By: #### B MP #### [facility] [address] [place] [address] Nitrite Ql (U) Negative Normal Negative [facility] Comment on above: Performed By: #### B MP #### [facility] [address] [place] [address] pH (U) 7.0 [pH] Normal 5.0-9.0 [facility] Comment on above: Performed By: #### B MP #### [facility] [address] [place] [address] Protein Ql (U) Negative Normal Negative [facility] Comment on above: Performed By: #### B MP #### [facility] [address] [place] [address] Specific gravity (U) [Rel density] 1.007 Normal 1.005-1.03 [facility] Comment on above: Performed By: #### B MP #### [facility] [address] [place] [address] Urine Reflexed to Culture Not Indicated Normal [facility] Comment on above: Performed By: #### B MP #### [facility] [address] [place] [address] Urobilinogen Qn (U) 0.2 {Tyrel'U}/dL Normal < 2.0 [facility] Comment on above: Performed By: #### B MP #### [facility] [address] [place] [address] CBC With Platelet No Differe ntialon 02-25-2019 Erythrocyte distribution width (RBC) [Ratio] 13.5 % Normal 11.5-14.5 [facility] Comment on above: Performed By: #### B MP #### [facility] [address] [place] [address] Hematocrit (Bld) [Volume fraction] 33.3 % Low 37.0-47.0 [facility] Comment on above: Performed By: #### B MP #### [facility] [address] [place] [address] Hemoglobin (Bld) [Mass/Vol] 11.7 g/dL Low 12.0-16.0 [facility] Comment on above: Performed By: #### B MP #### [facility] [address] [place] [address] MCH (RBC) [Entitic mass] 33.0 pg Critically high 27.0-31.3 [facility] Comment on above: Performed By: #### B MP #### [facility] [address] [place] [address] MCHC (RBC) [Mass/Vol] 35.1 % Normal 33.0-37.0 [facility] Comment on above: Performed By: #### B MP #### [facility] [address] [place] [address] MCV (RBC) [Entitic vol] 94.1 fL Normal 82.0-100.0 [facility] Comment on above: Performed By: #### B MP #### [facility] [address] [place] [address] Platelets (Bld) [#/Vol] 180 10*3/uL Normal 130-400 [facility] Comment on above: Performed By: #### B MP #### [facility] [address] [place] [address] RBC (Bld) [#/Vol] 3.54 10*6/uL Low 4.20-5.40 [facility] Comment on above: Performed By: #### B MP #### [facility] [address] [place] [address] WBC (Bld) [#/Vol] 12.1 10*3/uL Critically high 4.8-10.8 [facility] Comment on above: Performed By: #### B MP #### [facility] [address] [place] [address] Basic Metabolic Panel Reflex Mgon 02-24-2019 Anion gap [Moles/Vol] 13 mmol/L Normal 9-15 [facility] Comment on above: Performed By: #### B MP #### [facility] [address] [place] [address] Calcium [Mass/Vol] 8.8 mg/dL Normal 8.5-9.9 [facility] Comment on above: Performed By: #### B MP #### [facility] [address] [place] [address] Chloride [Moles/Vol] 100 mmol/L Normal 95-107 [facility] Comment on above: Performed By: #### B MP #### [facility] [address] [place] [address] CO2 [Moles/Vol] 24 mmol/L Normal 20-31 [facility] Comment on above: Performed By: #### B MP #### [facility] [address] [place] [address] Creatinine [Mass/Vol] 0.96 mg/dL Critically high 0.50-0.90 [facility] Comment on above: Performed By: #### B MP #### [facility] [address] [place] [address] GFR/1.73 sq M predicted among blacks MDRD (S/P/Bld) [Vol rate/Area] mL/min/{1.73_m2} Normal >60 [facility] Comment on above: Result Comment: >60 mL/min/1.73m2 EGFR, calc. for ages 18 and older using the MDRD formula (not corrected for weight), is valid for stable renal function. Performed By: #### B MP #### [facility] [address] [place] [address] GFR/1.73 sq M.predicted MDRD (S/P/Bld) [Vol rate/Area] 57.0 mL/min/{1.73_m2} Low >60 [facility] Comment on above: Result Comment: >60 mL/min/1.73m2 EGFR, calc. for ages 18 and older using the MDRD formula (not corrected for weight), is valid for stable renal function. Performed By: #### B MP #### [facility] [address] [place] [address] Glucose [Mass/Vol] 146 mg/dL Critically high 70-99 [facility] Comment on above: Performed By: #### B MP #### [facility] [address] [place] [address] Potassium reflex Mg 5.4 mEq/L Critically high 3.4-4.9 [facility] Comment on above: Performed By: #### B MP #### [facility] [address] [place] [address] Sodium [Moles/Vol] 137 mmol/L Normal 135-144 [facility] Comment on above: Performed By: #### B MP #### [facility] [address] [place] [address] Urea nitrogen [Mass/Vol] 18 mg/dL Normal 8-23 [facility] Comment on above: Performed By: #### B MP #### [facility] [address] [place] [address] CBC With Platelet and Differ entialon 02-24-2019 Basophils (Bld) [#/Vol] 0.0 10*3/uL Normal 0.0-0.2 [facility] Comment on above: Performed By: #### C BCWD #### [facility] [address] [place] [address] Basophils/100 WBC (Bld) 0.1 % Normal [facility] Comment on above: Performed By: #### C BCWD #### [facility] [address] [place] [address] Eosinophils (Bld) [#/Vol] 0.0 10*3/uL Normal 0.0-0.7 [facility] Comment on above: Performed By: #### C BCWD #### [facility] [address] [place] [address] Eosinophils/100 WBC (Bld) 0.0 % Normal [facility] Comment on above: Performed By: #### C BCWD #### [facility] [address] [place] [address] Erythrocyte distribution width (RBC) [Ratio] 13.4 % Normal 11.5-14.5 [facility] Comment on above: Performed By: #### C BCWD #### [facility] [address] [place] [address] Hematocrit (Bld) [Volume fraction] 34.6 % Low 37.0-47.0 [facility] Comment on above: Performed By: #### C BCWD #### [facility] [address] [place] [address] Hemoglobin (Bld) [Mass/Vol] 12.0 g/dL Normal 12.0-16.0 [facility] Comment on above: Performed By: #### C BCWD #### [facility] [address] [place] [address] Lymphocytes (Bld) [#/Vol] 0.9 10*3/uL Low 1.0-4.8 [facility] Comment on above: Performed By: #### C BCWD #### [facility] [address] [place] [address] Lymphocytes/100 WBC (Bld) 6.5 % Normal [facility] Comment on above: Performed By: #### C BCWD #### [facility] [address] [place] [address] MCH (RBC) [Entitic mass] 32.3 pg Critically high 27.0-31.3 [facility] Comment on above: Performed By: #### C BCWD #### [facility] [address] [place] [address] MCHC (RBC) [Mass/Vol] 34.7 % Normal 33.0-37.0 [facility] Comment on above: Performed By: #### C BCWD #### [facility] [address] [place] [address] MCV (RBC) [Entitic vol] 93.2 fL Normal 82.0-100.0 [facility] Comment on above: Performed By: #### C BCWD #### [facility] [address] [place] [address] Monocytes (Bld) [#/Vol] 1.4 10*3/uL Critically high 0.2-0.8 [facility] Comment on above: Performed By: #### C BCWD #### [facility] [address] [place] [address] Monocytes/100 WBC (Bld) 10.2 % Normal [facility] Comment on above: Performed By: #### C BCWD #### [facility] [address] [place] [address] Neutrophils (Bld) [#/Vol] 11.3 10*3/uL Critically high 1.4-6.5 [facility] Comment on above: Performed By: #### C BCWD #### [facility] [address] [place] [address] Neutrophils/100 WBC (Bld) 83.2 % Normal [facility] Comment on above: Performed By: #### C BCWD #### [facility] [address] [place] [address] Platelets (Bld) [#/Vol] 208 10*3/uL Normal 130-400 [facility] Comment on above: Performed By: #### C BCWD #### [facility] [address] [place] [address] RBC (Bld) [#/Vol] 3.71 10*6/uL Low 4.20-5.40 [facility] Comment on above: Performed By: #### C BCWD #### [facility] [address] [place] [address] WBC (Bld) [#/Vol] 13.7 10*3/uL Critically high 4.8-10.8 [facility] Comment on above: Performed By: #### C BCWD #### [facility] [address] [place] [address] Culture, Urineon 02-24-2019 Culture, Urine ORDERED BY: CHRISTIE REED SOURCE: Urine Clean Catch COLLECTED: 02/24/19 17:31 ANTIBIOTICS AT ELISEO.: RECEIVED : 02/24/19 17:31 Culture, Urine FINAL 02/26/19 08:22 No growth 24 hours Normal [facility] Comment on above: Performed By: #### B MP #### [facility] [address] [place] [address] POCT Glucoseon 02-24-2019 Glucose [Mass/Vol] 133 mg/dL Critically high 60-115 M [facility] Comment on above: Performed By: #### B MP #### [facility] [address] [place] [address] POC Performed on ACCU-CHEK Normal [facility] Comment on above: Performed By: #### B MP #### [facility] [address] [place] [address] Urinalysis, reflex to cultur erik 02-24-2019 Bilirubin Ql (U) Negative Normal Negative [facility] Comment on above: Performed By: #### B MP #### [facility] [address] [place] [address] Clarity (U) Clear Normal Clear [facility] Comment on above: Performed By: #### B MP #### [facility] [address] [place] [address] Color (U) Yellow Normal Straw/Anderson [facility] Comment on above: Performed By: #### B MP #### [facility] [address] [place] [address] Glucose Ql (U) Negative Normal Negative [facility] Comment on above: Performed By: #### B MP #### [facility] [address] [place] [address] Hemoglobin Ql (U) SMALL Abnormal Negative [facility] Comment on above: Performed By: #### B MP #### [facility] [address] [place] [address] Ketones Ql (U) Negative Normal Negative [facility] Comment on above: Performed By: #### B MP #### [facility] [address] [place] [address] Leukocyte esterase Test strip Ql (U) TRACE Abnormal Negative [facility] Comment on above: Performed By: #### B MP #### [facility] [address] [place] [address] Nitrite Ql (U) Negative Normal Negative [facility] Comment on above: Performed By: #### B MP #### [facility] [address] [place] [address] pH (U) 6.0 [pH] Normal 5.0-9.0 [facility] Comment on above: Performed By: #### B MP #### [facility] [address] [place] [address] Protein Ql (U) Negative Normal Negative [facility] Comment on above: Performed By: #### B MP #### [facility] [address] [place] [address] Specific gravity (U) [Rel density] 1.010 Normal 1.005-1.03 [facility] Comment on above: Performed By: #### B MP #### [facility] [address] [place] [address] Urine Reflexed to Culture YES Normal [facility] Comment on above: Performed By: #### B MP #### [facility] [address] [place] [address] Urobilinogen Qn (U) 0.2 {Tyrel'U}/dL Normal < 2.0 [facility] Comment on above: Performed By: #### B MP #### [facility] [address] [place] [address] Urine Microscopicon 02-25-20 19 Bacteria LM.HPF (Urine sed) [#/Area] Negative Normal [facility] Comment on above: Performed By: #### B MP #### [facility] [address] [place] [address] RBC (U) [#/Vol] 0-2 Normal 0-5 [facility] Comment on above: Performed By: #### B MP #### [facility] [address] [place] [address] Urine Epithelial Cells Auto 3-5 Normal 0-5 [facility] Comment on above: Performed By: #### B MP #### [facility] [address] [place] [address] Urine Hyaline Casts Auto 0-1 Normal 0-5 [facility] Comment on above: Performed By: #### B MP #### [facility] [address] [place] [address] Urine WBC Auto 6-10 Abnormal 0-5 [facility] Comment on above: Performed By: #### B MP #### [facility] [address] [place] [address] XR LUMBAR SPINE (2-3 VIEWS)o n 02-24-2019 [facility] [address] [place] [address] Calcium [Mass/Vol] 9.1 mg/dL Normal 8.5-9.9 [facility] Comment on above: Performed By: #### B MPX #### [facility] [address] [place] [address] Chloride [Moles/Vol] 106 mmol/L Normal 95-107 [facility] Comment on above: Performed By: #### B MPX #### [facility] [address] [place] [address] CO2 [Moles/Vol] 20 mmol/L Normal 20-31 [facility] Comment on above: Performed By: #### B MPX #### [facility] [address] [place] [address] Creatinine [Mass/Vol] 0.96 mg/dL Critically high 0.50-0.90 [facility] Comment on above: Performed By: #### B MPX #### [facility] [address] [place] [address] GFR/1.73 sq M predicted among blacks MDRD (S/P/Bld) [Vol rate/Area] mL/min/{1.73_m2} Normal >60 [facility] Comment on above: Result Comment: >60 mL/min/1.73m2 EGFR, calc. for ages 18 and older using the MDRD formula (not corrected for weight), is valid for stable renal function. Performed By: #### B MPX #### [facility] [address] [place] [address] GFR/1.73 sq M.predicted MDRD (S/P/Bld) [Vol rate/Area] 57.0 mL/min/{1.73_m2} Low >60 [facility] Comment on above: Result Comment: >60 mL/min/1.73m2 EGFR, calc. for ages 18 and older using the MDRD formula (not corrected for weight), is valid for stable renal function. Performed By: #### B MPX #### [facility] [address] [place] [address] Glucose [Mass/Vol] 139 mg/dL Critically high 70-99 [facility] Comment on above: Performed By: #### B MPX #### [facility] [address] [place] [address] Potassium reflex Mg 4.6 mEq/L Normal 3.4-4.9 [facility] Comment on above: Performed By: #### B MPX #### [facility] [address] [place] [address] Sodium [Moles/Vol] 140 mmol/L Normal 135-144 [facility] Comment on above: Performed By: #### B MPX #### [facility] [address] [place] [address] Urea nitrogen [Mass/Vol] 20 mg/dL Normal 8-23 [facility] Comment on above: Performed By: #### B MPX #### [facility] [address] [place] [address] CBC With Platelet No Differe ntialon 02-23-2019 Erythrocyte distribution width (RBC) [Ratio] 13.4 % Normal 11.5-14.5 [facility] Comment on above: Performed By: #### C BCND #### [facility] [address] [place] [address] Hematocrit (Bld) [Volume fraction] 38.8 % Normal 37.0-47.0 [facility] Comment on above: Performed By: #### C BCND #### [facility] [address] [place] [address] Hemoglobin (Bld) [Mass/Vol] 13.6 g/dL Normal 12.0-16.0 [facility] Comment on above: Performed By: #### C BCND #### [facility] [address] [place] [address] MCH (RBC) [Entitic mass] 32.2 pg Critically high 27.0-31.3 [facility] Comment on above: Performed By: #### C BCND #### [facility] [address] [place] [address] MCHC (RBC) [Mass/Vol] 35.1 % Normal 33.0-37.0 [facility] Comment on above: Performed By: #### C BCND #### [facility] [address] [place] [address] MCV (RBC) [Entitic vol] 91.6 fL Normal 82.0-100.0 [facility] Comment on above: Performed By: #### C BCND #### [facility] [address] [place] [address] Platelets (Bld) [#/Vol] 212 10*3/uL Normal 130-400 [facility] Comment on above: Performed By: #### C BCND #### [facility] [address] [place] [address] RBC (Bld) [#/Vol] 4.24 10*6/uL Normal 4.20-5.40 [facility] Comment on above: Performed By: #### C BCND #### [facility] [address] [place] [address] WBC (Bld) [#/Vol] 8.3 10*3/uL Normal 4.8-10.8 [facility] Comment on above: Performed By: #### C BCND #### [facility] [address] [place] [address] FLUORO FOR SURGICAL PROCEDUR ESon 02-23-2019 FLUORO [...] [facility] Surgical Specimen [facility] [address] [place] [id number] FINAL SURGICAL PATHOLOGY REPORT Patient Name: SON HUBBARD Accession No: [id number] Age Sex: 1945 Location: [facility] Account No: [id number] Collected: 02/23/2019 Med Rec No: [id number] Received: 02/24/2019 Attend Phys: FAN RAMIREZ Completed: [...] 3.5 x 3.0 x 0.5 cm. Sections branch sales and service representative are submitted in three cassettes labeled A1 through A3 after a brief decalcification. ALIFA/SCDAN CPT: 10867 X1 [id number] X1 CHIDI LUNA M.D. 02/26/2019 Electronically signed out by Page 1 of 1 [facility] Comment on above: Performed By: #### B MP #### [facility] [address] [place] [address] Basic Metabolic Panelon 02-08 Anion gap [Moles/Vol] 13 mmol/L Normal 9-15 [facility] Comment on above: Performed By: #### B MP #### [facility] [address] [place] [address] Calcium [Mass/Vol] 9.7 mg/dL Normal 8.5-9.9 [facility] Comment on above: Performed By: #### B MP #### [facility] [address] [place] [address] Chloride [Moles/Vol] 105 mmol/L Normal 95-107 [facility] Comment on above: Performed By: #### B MP #### [facility] [address] [place] [address] CO2 [Moles/Vol] 24 mmol/L Normal 20-31 [facility] Comment on above: Performed By: #### B MP #### [facility] [address] [place] [address] Creatinine [Mass/Vol] 1.00 mg/dL Critically high 0.50-0.90 [facility] Comment on above: Performed By: #### B MP #### [facility] [address] [place] [address] GFR/1.73 sq M predicted among blacks MDRD (S/P/Bld) [Vol rate/Area] mL/min/{1.73_m2} Normal >60 [facility] Comment on above: Result Comment: >60 mL/min/1.73m2 EGFR, calc. for ages 18 and older using the MDRD formula (not corrected for weight), is valid for stable renal function. Performed By: #### B MP #### [facility] [address] [place] [address] GFR/1.73 sq M.predicted MDRD (S/P/Bld) [Vol rate/Area] 54.3 mL/min/{1.73_m2} Low >60 [facility] Comment on above: Result Comment: >60 mL/min/1.73m2 EGFR, calc. for ages 18 and older using the MDRD formula (not corrected for weight), is valid for stable renal function. Performed By: #### B MP #### [facility] [address] [place] [address] Glucose [Mass/Vol] 93 mg/dL Normal 70-99 [facility] Comment on above: Performed By: #### B MP #### [facility] [address] [place] [address] Potassium [Moles/Vol] 4.1 mmol/L Normal 3.4-4.9 [facility] Comment on above: Performed By: #### B MP #### [facility] [address] [place] [address] Sodium [Moles/Vol] 142 mmol/L Normal 135-144 [facility] Comment on above: Performed By: #### B MP #### [facility] [address] [place] [address] Urea nitrogen [Mass/Vol] 20 mg/dL Normal 8-23 [facility] Comment on above: Performed By: #### B MP #### [facility] [address] [place] [address] CBC With Platelet No Differe ntialon 02-22-2019 Erythrocyte distribution width (RBC) [Ratio] 13.2 % Normal 11.5-14.5 [facility] Comment on above: Performed By: #### C BCND #### [facility] [address] [place] [address] Hematocrit (Bld) [Volume fraction] 39.9 % Normal 37.0-47.0 [facility] Comment on above: Performed By: #### C BCND #### [facility] [address] [place] [address] Hemoglobin (Bld) [Mass/Vol] 14.1 g/dL Normal 12.0-16.0 [facility] Comment on above: Performed By: #### C BCND #### [facility] [address] [place] [address] MCH (RBC) [Entitic mass] 32.5 pg Critically high 27.0-31.3 [facility] Comment on above: Performed By: #### C BCND #### [facility] [address] [place] [address] MCHC (RBC) [Mass/Vol] 35.3 % Normal 33.0-37.0 [facility] Comment on above: Performed By: #### C BCND #### [facility] [address] [place] [address] MCV (RBC) [Entitic vol] 92.2 fL Normal 82.0-100.0 [facility] Comment on above: Performed By: #### C BCND #### [facility] [address] [place] [address] Platelets (Bld) [#/Vol] 206 10*3/uL Normal 130-400 [facility] Comment on above: Performed By: #### C BCND #### [facility] [address] [place] [address] RBC (Bld) [#/Vol] 4.33 10*6/uL Normal 4.20-5.40 [facility] Comment on above: Performed By: #### C BCND #### [facility] [address] [place] [address] WBC (Bld) [#/Vol] 5.9 10*3/uL Normal 4.8-10.8 [facility] Comment on above: Performed By: #### C BCND #### [facility] [address] [place] [id number] Partial Thromboplastin Timeo n 02-22-2019 aPTT Coag (Bld) [Time] 36.9 s Critically high 24.4-36.8 [facility] Comment on above: Result Comment: Effe ctive 02/18/2019: Please note methodology and/or reference ranges have changed. Performed By: #### P TT #### [facility] [address] [place] [id number] Prothrombin Timeon 9 INR Coag (PPP) [Relative [...] [facility] [address] [place] [id number] PT Coag (PPP) [Time] 12.6 s Normal 12.3-14.9 [facility] Comment on above: Result Comment: Effjoel ctive 02/18/19 Please note methodology and/or reference ranges have changed. Performed By: #### P T #### [facility] [address] [place] [id number] Type and Screen Capture 3 sc rn cellon 02-22-2019 Type and Screen Capture 3 scrn cell PATIENT: INEZ Wilson LOC: [facility] BILL# : [id number] : 1945 SEX: F ORDERED BY: RISSA Hale ORDERED : 02/22/2019 07:32 COLLECTED: 02/22/2019 09:40 ORDER : [id number] RECEIVED : 02/22/2019 09:40 Confirmation type needs to be drawn. --------- TEST NAME RESULT UNITS RANGES ABN FL ST ABORH Capture O NEG F Antibody 3 Cell Scrn Captu NEG F -------- Normal [facility] Comment on above: Performed By: #### T S3C #### [facility] [facility] [address] [place] [address] XR SPINE ENTIRE (2-3 VIEWS)o n 02-22-2019 [...] [facility] No Panel Information [facility] Encounters Encounter Date Encounter Type Care Provider Facility Start: 09-16-2023 Orders Only Shravan rodríguez MD Work Phone: Cardiology Comment on above: Hypertension, unspec ified type (Primary Dx); Coronary artery 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, unspecified whether angina present; Hyperlipidemia, unspecified hyperlipidemia type Start: 09-03-2023 End: 09-03-2023 ambulatory [facility] Start: 08-06-2023 End: 08-07-2023 ambulatory [facility] Start: 07-08-2023 End: 07-09-2023 ambulatory [facility] Start: 06-11-2023 End: 06-11-2023 ambulatory Referral Self Facility:[facility] Start: 06-11-2023 End: 06-11-2023 ambulatory MD Pat Newell Work Phone: [facility] Work Phone: Start: 06-11-2023 End: 06-11-2023 Patient encounter procedure MD Pat Newell Work Phone: [facility] Work Phone: Start: 03-28-2023 End: 03-28-2023 [facility] Start: 11-12-2022 End: 11-13-2022 ambulatory MADELYN DICKSON Facility:[facility] Start: 10-18-2022 End: 10-18-2022 ambulatory PAT NEWELL Facility:[facility] Start: 10-10-2022 End: 10-10-2022 ambulatory PAT NEWELL Facility:[facility] Start: 10-10-2022 End: 10-10-2022 Patient [...] Facility:[facility] Start: 06-10-2022 End: 06-10-2022 ambulatory MD Pta Newell Work Phone: [facility] Work Phone: Start: 06-10-2022 End: 06-10-2022 Patient encounter procedure MD Pat Newell Work Phone: [facility] Start: 05-15-2022 End: 05-15-2022 ambulatory MYLENE ALMEIDA Facility:[facility] Start: 05-02-2022 End: 05-02-2022 ambulatory MYLENE ALMEIDA Facility:[facility] Start: 05-02-2022 End: 05-02-2022 Patient encounter procedure Mylene Almeida MD Work Phone: Ophthalmology Comment on above: S/P cataract extract ion and insertion of intraocular lens, left (Primary Dx) Start: 05-01-2022 End: 05-02-2022 ambulatory NAILA Marlin CEDILLO Facility:[facility] Start: 05-01-2022 End: 05-01-2022 Patient encounter procedure Naila Cedillo OD Work Phone: Ophthalmology Comment on above: Superficial punctate keratitis of left eye (Primary Dx); Pseudophakia Start: 05-01-2022 End: 05-01-2022 ambulatory MYLENE ALMEIDA Facility:[facility] Start: 04-24-2022 End: 04-24-2022 ambulatory MYLENE ALMEIDA Facility:[facility] Start: 04-24-2022 Encounter for other preprocedural examination MYLENE ALMEIDA [facility] Start: 04-24-2022 End: 04-24-2022 Patient encounter procedure [...] Start: 03-07-2022 End: 03-07-2022 ambulatory PAT NEWELL Facility:[facility] Start: 01-11-2022 Telephone encounter Mylene henderson MD Work Phone: Ophthalmology Comment on above: Appointment Start: 05-11-2020 End: 05-12-2020 ambulatory PAT NEWELL Facility:[facility] Start: 04-04-2020 End: 04-05-2020 ambulatory PAT NEWELL Facility:[facility] Start: 02-24-2019 End: 03-05-2019 Evaluation [...] End: 02-27-2019 Patient encounter procedure FAN Santana [facility] Procedures Date Procedure Procedure Detail Performing Clinician [...] FAN ASHLEY Start: 03-04-2019 INCENTIVE SPIROMETRY RT AFN ASHLEY Start: 03-04-2019 INCENTIVE SPIROMETRY RT FAN [...] INCENTIVE SPIROMETRY RT FAN ASHLEY Start: 02-25-2019 INTERLACER EVAL AND TREAT FAN Y OO Start: [...] 08-11-2023 Advance Directive Discussion Advance Directive Discussion [facility] Start: 08-11-2023 Depression Assessment Depression Ass essment [facility] Start: 04-11-2023 Covid-19 Vaccine () Covid-19 Vaccine () [facility] Start: 04-11-2023 Influenza vaccination Influenza Vacc ine (#1) [facility] Start: 03-07-2023 End: 08-29-2023 IOL BIOMETRY W/ IOL CALC OU (BOTH EYES) IOL BIOMETRY W/ IOL CALC OU (BOTH EYES) OPHT Imaging Routine Combined forms of age-related cataract of both eyes Expected: 03/07/2023, Expires: 08/29/2023 [facility] Work Phone: Comment on above: Expected: 03/07/2023 , Expires: 08/29/2023 Start: 08-11-2022 ADVANCE DIRECTIVE DISCUSSION ADVANCE DIRECTIVE DISCUSSION [facility] Start: 07-09-2022 COVID-19 VACCINE (4 - Booster for Pfizer series) COVID-19 VACCINE (4 - Booster for Pfizer series) [facility] Start: 05-03-2022 COVID-19 VACCINE (4 - Booster for Pfizer series) COVID-19 VACCINE (4 - Booster for Pfizer series) [facility] Start: 04-11-2022 Influenza vaccination C [facility] Start: 02-24-2022 Diabetes Screening Diabetes Screenin g [facility] Start: 08-11-2021 ADVANCE DIRECTIVE DISCUSSION ADVANCE DIRECTIVE DISCUSSION [facility] Start: 03-01-2021 COVID-19 VACCINE (3 - Booster for Pfizer series) COVID-19 VACCINE (3 - Booster for Pfizer series) [facility] Start: 06-20-2019 DIABETES SCREEN DIABETES SCREEN [facility] Start: 05-28-2018 Pneumococcal Vaccine : 65+ (2 of 2 - PCV) Pneumococcal Vaccine: 65+ (2 of 2 - PCV) [facility] Start: 06-14-2017 Adult depression screening assessment DEPRESSION SCREENING [facility] Start: 05-30-2013 PNEUMOCOCCAL: 65+ (2 - PCV) PNEUMOCOCCAL: 65+ (2 - PCV) [facility] Start: 2011 BONE DENSITY BONE DENSITY [facility] Start: 2011 Screening for osteoporosis Bone Density Screening [facility] Start: 2006 RSV Vaccine (1 - 1-d ose 60+ series) RSV Vaccine (1 - 1-dose 60+ series) [facility] Start: 01-22-1996 SHINGRIX VACCINE (1 of 2) SHINGRIX VACCINE (1 of 2) [facility] Start: 1991 COLOGUARD (FIT-DNA) COLOGUARD (FIT-D NA) [facility] Start: 1991 Colonoscopy COLONOSCOPY [facility] Start: 1991 COLORECTAL CANCER SCREENING COLORECTAL CANCER SCREENING [facility] Start: [address] COLONOGRAPHY [facility] Start: 1991 FECAL OCCULT BLOOD FECAL OCCULT BLOO D [facility] Start: 1991 LIPID SCREEN LIPID SCREEN [facility] Start: 1991 SIGMOIDOSCOPY SIGMOIDOSCOPY [facility] Start: 1965 Urine microalbumin profile [facility] Start: 01-22-1964 ANNUAL PCP TEAM CONTRACTS ANALYST KALA DISEASE VISIT ANNUAL PCP TEAM CHRONIC DISEASE VISIT [facility] Start: 01-22-1964 BP CONTROLLED (<130/80) BP CONTROLLE D (<130/80) [facility] Start: 01-22-1964 Hepatitis B surface antibody level LDL CHOLESTEROL [facility] Start: 01-22-1964 HEPATITIS C SCREENING HEPATITIS C [facility] Start: 01-22-1964 Hepatitis C screening Hepatitis C [facility] Start: 1958 Adult depression screening assessment DEPRESSION SCREENING [facility] Start: 1951 COVID-19 VACCINE (#1) COVID-19 VACCI NE (#1) [facility] CORNEAL TOPOGRAPHY PENTACAM OU (BOTH EYES) CORNEAL TOPOGRAPHY PENTACAM OU (BOTH EYES) OPHT Imaging Routine Combined forms of age-related cataract of both eyes 04/24/2022 12:46 PM EDT [facility] Work Phone: End: 09-16-2024 ECG COMPLETE ECG COMPLETE ECG Routine Hypertension, unspecified type Coronary artery 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, unspecified whether angina present Hyperlipidemia, unspecified hyperlipidemia type 1 Occurrences starting 09/16/2023 until 09/16/2024 [facility] Work Phone: Comment on above: 1 Occurrences starti ng 09/16/2023 until 09/16/2024 [facility] Immunizations Immunization Date Immunization Notes Care Provider Fa cility 08-27-2022 influenza virus vacc ine, unspecified formulation Shravan Buchanan MD Work Phone: [facility] 05-30-2012 influenza virus vacc ine, unspecified formulation Mylene Wayne MD Work Phone: [facility] 05-30-2012 pneumococcal polysaccharide vaccine, 23 valent Mylene Wayne MD Work Phone: [facility] Payers Date Payer Category Payer Self-pay [id number] 2019 Private Health Insurance [id number] 2019 Private Health Insurance DAJUAN MARTINSA MEDICARE SUPPLEMENT [id number] 2019-Present [phone] [address] [place] [address] Indemnity [id number] 2019 Private Health Insurance CIGKENDRICK MARTINSA MEDICARE SUPPLEMENT [id number] 2019-Present [phone] [address] [place] [address] Indemnity [id number] 2016 Medicare [id number] 2016 Private Health Insurance [id number] 2011 Medicare MEDICARE MEDICAR E A AND B [id number] 2011-Present [phone] [place] [address] Medicare [id number] 2011 Medicare MEDICARE MEDICAR E A AND B [id number] 2011-Present [phone] [place] [address] Medicare [id number] 1959 Medicare [id number] 1959 Private Health Insurance [id number] 1946 Unknown [id number] 1946 Unknown [id number] .182 1946 Unknown [id number] .182 1946 Unknown [id number] .182 1946 Unknown [id number] .182 1946 Unknown [id number] .182 1946 Unknown [id number] .647 1946 Unknown [id number] .647 1946 Unknown [id number] [id number] .593 1946 Unknown [id number] .593 1946 Unknown [id number] [id number] .593 1946 Unknown [id number] .593 1946 Unknown [id number] .593 Unknown [id number] .531 Social History Date Type Detail Facility Start: 04-28-2012 End: 04-24-2022 Tobacco smoking status NHIS Ex-smoker [facility] End: 04-28-1990 History of tobacco use Current smoker [facility] End: 04-28-1990 History of tobacco use Cigarette Smoker [facility] Start: 04-28-2012 End: 09-06-2022 Cigarettes smoked current (pack per day) - Reported 0.7 [facility] Start: 06-14-2016 End: 10-18-2022 Alcohol intake Current non-drinker of alcohol (finding) [facility] Start: 1945 Sex Assigned At Not on file C [facility] Start: 04-24-2022 Tobacco use and exposure Former smokeless tobacco user [facility] Work Phone: Start: 04-07-2022 End: 05-01-2022 Exposure to SARS-CoV-2 (event) Not sure [facility] Work Phone: Start: 1945 Sex Assigned At Female F [facility] Start: 09-06-2022 End: 10-18-2022 Tobacco use panel [facility] National Score (1-10 0), lower number is lower risk 70 [facility] Medical Equipment Procedure Code Equipment Code Equipment Original Text Equipment Identifier Dates Elan Bn Smpx P Radpq Fd Strl - [id number] Start: 05-27-2012 Sys Bncmnt Prep Kt Plg Brsh - [id number] Start: 05-27-2012 Comment on above: Description: CEMENT RESTRICTOR Stem Fem 50mm 12mm Elan Trthln - [id number] Start: 05-27-2012 Comment on above: Description: cemente d stem Aug Tib 10mm Trthln 3 Rt - [id number] Start: 05-27-2012 Comment on above: Description: AUGMENT Comp Fem 3 Rt Kn Total Stab - [id number] Start: 05-27-2012 Comment on above: Description: TS FEMU R Ins Tib 3 13mm K n X3 Cs Trthln - [id number] Start: 05-27-2012 Comment on above: Description: CS INSE RT Comp Pat 10mm 32mm Asym Trthln - [id number] Start: 05-27-2012 Comment on above: Description: PATELLA Baseplt Tib Trthln 3 Kn Total - [id number] Start: 05-27-2012 Comment on above: Description: UNIVERS AL BASEPLATE Lens Iol 0d +19. 5 Talat Uv Abs - [id number] Start: 05-01-2022 Comment on above: Description: -1.52 Lens Iol 0d +18 Talat Uv Abs - [id number] Start: 05-15-2022 Comment on above: Description: -0.34 Clinical Notes 01-16-2022 to 09-03-2023 Patient Sebastian Almeida V, MD - 10/10/2022 12:24 PM Lenin Murphy OD - 10/10/2022 11:44 AM Mark Almeida V, MD - 05/02/2022 10:44 AM EDT Note Date & Type Note Facility 09-03-2023 Note PR Cardiology - [facility] Subjective Son Hubbard is a 78 y.o. year old female patient being seen for follow up VIOLA. C/o extreme tiredness . Denies chest pain, SOB, and palpitations. 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 The [...] June 2023 she was admitted to the [facility] with worsening shortness of breath [...] Inhibitors Amlodipine Swell (more content not included)... [facility] 08-06-2023 Note Patient: Son arguelles Procedure Information Date/Time: 08/06/23 1030 Procedure: TRANSESOPHAGEAL ECHO (VIOLA) Location: [facility] Vascular Lab Clinical information reviewed: Allergies Meds Physical Exam Airway Mallampati: II TM distance: >3 FB Neck ROM: full Cardiovascular Dental Pulmonary Abdominal Anesthesia Plan ASA 2 other (Moderate sedation) Additional Equipment Requests [facility] 07-08-2023 Note Patient here for [facility] low up TB[facility] for SOB and chest pain. She was started on isosorbide. She is scheduled for outpatient stress test next week. She denies chest pain. SOB is improving. C/o LE edema which resolves by morning. C/o fatigue. Review of Systems Cardiovascular: Positive for leg swelling. All other systems reviewed and are negative. [facility] 07-08-2023 Note Cardiovascular Medic [facility] SUBJECTIVE Chief Complaint Patient presents with Fatigue Congestive Heart Failure Edema Shortness of Breath Son Hubbard is a 78 y.o. female here for hospital follow-up. HPI She started to have feeling of chest congestion around 06/21/2023 (this was similar to how she felt prior to her stent placement) and she presented to [facility]. She states she was having SOB laying [...] March 2020 she was admitted to the [facility] with worsening shortness of breath. 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 [facility] 03-28-2023 Note PR Cardiology - [facility] Subjective Son Hubbard is a 78 y.o. 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 The [...] tablet, TAKE 1 (more content not included)... [facility] 10-18-2022 Note HNO ID: [id number] Author: Steph Murphy, JOAQUIM Service: ? Author Type: SEAT SCOOPER MACHINE Type: Progress Notes Filed: 10/18/2022 10:33 AM [...] Murphy, OD October 18, 2022 10:31 AM [facility] 10-10-2022 Note HNO ID: [id number] Author: Mylene Almeida V, MD Service: ? [...] patient was offered a surgery/procedure at a [facility] facility. The surgeon/proceduralist and patient have discussed [...] ALMEIDA MD October 10, 2022 12:24 PM [facility] 10-10-2022 Note HNO ID: [id number] Author: Steph Murphy OD Service: ? Author Type: SEAT SCOOPER MACHINE Type: Progress Notes Filed: 10/10/2022 12:30 PM [...] Murphy, OD October 10, 2022 11:45 AM [facility] 10-10-2022 Instructions Mylene Almeida V, MD - [...] so we recommend you come with a moving van driver. You will then be scheduled for a follow up in approximately one week. If you notice any of the following symptoms of retinal detachment, please call our office at : - Flashes of light - Increased number of floaters or large floaters - Curtains, veils, or spider web pattern over vision documented in this encounter [facility] 10-10-2022 History of Present illness Narrative The [...] patient was offered a surgery/procedure at a [facility] facility. The surgeon/proceduralist and patient have discussed [...] 2022 11:45 AM documented in this encounter [facility] 05-02-2022 Note HNO ID: [id number] Author: Mylene Almeida V, MD Service: ? [...] ALMEIDA MD May 02, 2022 10:44 AM [facility] 05-02-2022 History of Present illness Narrative The [...] 2022 10:44 AM documented in this encounter [facility] 05-01-2022 Note HNO ID: [id number] Author: Naila Cedillo, JOAQUIM Service: ? Author Type: SEAT SCOOPER MACHINE Type: Progress Notes Filed: 05/02/2022 7:54 AM [...] Hunter, OD May 01, 2022 6:05 PM [facility] 05-01-2022 History of Present illness Narrative ASSESSMENT/PLAN: [...] 2022 6:05 PM documented in this encounter [facility] 04-24-2022 Note HNO ID: [id number] Author: CHRISTAL Calles Service: ? Author Type: Fish Grader Type: Progress Notes Filed: 04/24/2022 12:47 PM Note Text: Confirmed Aim: -1.50 OS, [place] OD CHRISTAL Calles April 24, 2022 12:46 PM [facility] 04-24-2022 History of Present illness Narrative Confirmed Aim: -1.50 OS, [place] OD CHRISTAL Calles April 24, 2022 12:46 PM documented in this encounter [facility] 03-07-2022 Note HNO ID: [id number] Author: Mylene Almeida V, MD Service: ? [...] and surgery - Comanage with Dr Wilson; [facility] POD #1 Cataract Presurgical Documentation Cataract: [...] patient was offered a surgery/procedure at a [facility] facility. The surgeon/proceduralist and patient have discussed [...] ALMEIDA MD March 07, 2022 1:25 PM [facility] 03-07-2022 Note HNO ID: [id number] Author: Marian Arroyo, JOAQUIM Service: ? Author Type: SEAT SCOOPER MACHINE Type: Progress Notes Filed: 03/07/2022 1:34 PM [...] Arroyo, JOAQUIM March 07, 2022 12:59 PM [facility] 03-07-2022 History of Present illness Narrative The [...] and surgery - Comanage with Dr Wilson; [facility] POD #1 Cataract Presurgical Documentation Cataract: [...] patient was offered a surgery/procedure at a [facility] facility. The surgeon/proceduralist and patient have discussed [...] 2022 12:59 PM documented in this encounter [facility] 01-16-2022 Miscellaneous Notes Patient has been rescheduled with Dr. Almeida for March 07 in [place] Patient called Appointment Center and was scheduled with Dr. Taylor. We are waiting to confirm from Dr. Wilson office if it is ok for patient to stay scheduled with or to call and reschedule with Dr. Almeida LVM for patient to schedule at Cataract Evaluation with Dr. Almeida in [place] per faxed referral from Dr. Wilson. First attempt 01/11/22. Referral scanned into chart. documented in this encounter [facility] Evaluation note Diagnosis Combined forms of age-related cataract of both eyes- Primary Other and combined forms of senile cataract Posterior vitreous detachment of right eye Vitreous degeneration [facility] Diagnosis Combined forms of age-related cataract of both eyes- Primary Other and combined forms of senile cataract [facility] [place] Diagnosis Combined forms of age-related cataract of both eyes Other and combined forms of senile cataract Combined forms of age-related cataract of both eyes Other and combined forms of senile cataract Combined forms of age-related cataract of both eyes Other and combined forms of senile cataract [facility] Diagnosis Superficial punctate keratitis of left eye- Primary Pseudophakia Lens replaced by other means Combined forms of age-related cataract of both eyes Other and combined forms of senile cataract [facility]* Diagnosis S/P cataract extraction and insertion of intraocular lens, left- Primary Combined forms of age-related cataract of both eyes Other and combined forms of senile cataract [facility]No [facility] information available[facility] Work Phone: Evaluation note* Diagnosis PCO (posterior capsular opacification), bilateral- Primary After-cataract, unspecified Pseudophakia of both eyes Lens replaced by other means Vitreous degeneration, 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 Other retinal disorders documented in this encounter [facility] note* Diagnosis Hypertension, unspecified type- Primary Coronary artery 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, unspecified whether angina present Hyperlipidemia, unspecified hyperlipidemia type documented in this encounter [facility] for referral (narrative)* Outpatient Procedure (Routine) - Authorized Specialty Diagnoses / Procedures Referred By Contac t Referred To Contact [facility] [place] Diagnoses Hypertension, unspecified type Coronary artery 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, unspecified whether angina present Hyperlipidemia, unspecified hyperlipidemia type Procedures ECG COMPLETE ECG ROUTINE ECG W/LEAST 12 LDS W/I&R Shravan Buchanan MD [address] [place] [address] [facility] [place] [address] Referral ID Status Reason Start Date Expiration Date Visits Requested Visits Authorized [id number] Authorized Auto-Generat ed Referral 09/16/2023 09/15/2024 1 1 [facility] Summary Purpose Family History No Family [...] section and content) DATE CREATED AUTHOR 03/05/2019 [facility] DATE CREATED AUTHOR AUTHOR'S ORGANIZ ATION 03/13/2021 [facility] DATE CREATED AUTHOR AUTHOR'S ORGANIZ ATION 10/19/2022 [facility] DATE CREATED AUTHOR AUTHOR'S ORGANIZ ATION 11/18/2022 [facility] DATE CREATED AUTHOR AUTHOR'S ORGANIZ ATION 06/18/2023 [facility] DATE CREATED AUTHOR AUTHOR'S ORGANDOREEN ATION 09/23/2023 [facility] Source Comments (unrecognize d section and content) In the event this informatio n is protected by the Federal Confidentiality of Alcohol and Drug Abuse Patient Records regulations: The Federal rules restrict any use of the information to criminally investigate or prosecute any alcohol or drug abuse patient.[facility] Hospital[facility] the event this information is protected by the Federal Confidentiality of Alcohol and Drug Abuse Patient Records regulations: The Federal rules restrict any use of the information to criminally investigate or prosecute any alcohol or drug abuse patient.[facility] HospitalIn the event this information is protected by the Federal Confidentiality of Alcohol and Drug Abuse Patient Records regulations: The Federal rules restrict any use of the information to criminally investigate or prosecute any alcohol or drug abuse patient.[facility] HospitalIn the event this information is protected by the Federal Confidentiality of Alcohol and Drug Abuse Patient Records regulations: The Federal rules restrict any use of the information to criminally investigate or prosecute any alcohol or drug abuse patient.[facility] HospitalIn the event this information is protected by the Federal Confidentiality of Alcohol and Drug Abuse Patient Records regulations: The Federal rules restrict any use of the information to criminally investigate or prosecute any alcohol or drug abuse patient.[facility] HospitalIn the event this information is protected by the Federal Confidentiality of Alcohol and Drug Abuse Patient Records regulations: The Federal rules restrict any use of the information to criminally investigate or prosecute any alcohol or drug abuse patient.[facility] HospitalIn the event this information is protected by the Federal Confidentiality of Alcohol and Drug Abuse Patient Records regulations: The Federal rules restrict any use of the information to criminally investigate or prosecute any alcohol or drug abuse patient.[facility] HospitalIn the event this information is protected by the Federal Confidentiality of Alcohol and Drug Abuse Patient Records regulations: The Federal rules restrict any use of the information to criminally investigate or prosecute any alcohol or drug abuse patient.[facility] Reason for Visit (unrecogniz ed section and [...] ovider Active Referral Self Attending Provider Active Seconds Inspector Relationship Specialty Start Date End Date Pat Newell MD PCP - General Family Practice 03/30/12 Seconds Inspector Relationship Specialty Start Date End Date Pat Newell MD PCP - General Family Practice 03/30/12 Seconds Inspector Relationship Specialty Start Date End Date Pat Newell MD PCP - General Family Practice 03/30/12 Seconds Inspector Relationship Specialty Start Date End Date Pat Newell MD PCP - General Family Practice 03/30/12 Seconds Inspector Relationship Specialty Start Date End Date Pat Newell MD PCP - General Family Medicine 03/30/12 Seconds Inspector Relationship Specialty Start Date End Date Pat Newell MD PCP - General Family Medicine 03/30/12 Seconds Inspector Relationship Specialty Start Date End Date Pat Newell MD PCP - General Family Medicine 03/30/12 Seconds Inspector Relationship Specialty Start Date End Date Pat [...] BE BASED ON THE PRIMARY CLINICAL RECORDS. [facility] [employer] [facility]. provides no warranty or guarantee of the accuracy or completeness of information in this document.
--- NOTE | 2023-09-30 07:00 | CA_ITS ---
Patient Name: SON WILEY MR#: [id number] : 1945 Exam Date: 09/30/2023 Ordering Doctor: AGUSTIN ALONZO ECHOCARDIOGRAM REPORT PROCEDURE: CA ECHO LIMITED INDICATIONS: a-fib w/rvr new onset, hypertension COMPARISON: None. DESCRIPTION: Limited ECHOCARDIOGRAM Real-time transthoracic echocardiography with 2D and M-mode performed. QUALITY: Technical quality was good. 63 , 188#, BSA 1.88 m2. Limited echocardiogram per physician order. LEFT VENTRICLE: Normal chamber size. Thickened septal wall. Systolic function is normal. LV EF: Visual estimation of left ventricular ejection fraction is 60-65%, consistent with previous echocardiogram done 06/19/2023. DIASTOLIC: ATRIAL SEPTUM: LEFT ATRIUM: Severe dilatation. RIGHT ATRIUM: Mild dilatation. RIGHT VENTRICLE: Normal chamber size. Normal systolic function. TRICUSPID VALVE: Normal mobility and thickness. MITRAL VALVE: Mildly thickened with normal mobility. AORTIC VALVE: Normal trileaflet appearance. No visible sclerosis. Normal leaflet mobility. AORTIC ROOT: PULMONIC VALVE: Normal thickness and mobility. PERICARDIUM: No evidence of pericardial effusion. IVC: Collapses with inspirations. PLEURA: CONCLUSION: 1. Ventricular function is normal. LVEF is 60 to 65%. 2. Severe left atrial dilatation. 3. No pericardial effusion. Adult Echocardiography Procedure Report Left Ventricle LVEDD (3.7 - 5.6 cm): 3.67 cm LVESD (2.2 - 4.0 cm): 2.59 cm LVIVS thickness (0.6 - 1.2 cm): 1.44 cm LVPW thickness (0.5 - 1.0 cm): 1.12 cm LVOT Diameter 1.87 cm Left Atrium LA Volume Index (2D A2C): 42.10 ml/m2 Left Atrium Systolic Dimension: 4.08 cm Mitral Valve Right Ventricle Aorta AO Root Diam: 3.39 cm Aortic Valve Tricuspid Valve Pulmonic Valve Right Atrium Right Atrium Systolic Pressure: 33.56 ml, 33.56 ml Dictated by: Edwin Doran M.D. on 09/30/2023 at 15:08 Approved by: Edwin Doran M.D. on 09/30/2023 at 15:11
[2023-09-30] MEDS: ISOSORBIDE MONONITRATE 30 MG TAB.ER.24H PO (08:04)
[2023-09-30] MEDS: OMEPRAZOLE 40 MG CAPSULE.DR PO (08:04)
[2023-09-30] MEDS: ESCITALOPRAM 10 MG TABLET PO (08:04)
[2023-09-30] MEDS: LIOTHYRONINE SODIUM 5 MCG TABLET PO (08:04)
[2023-09-30] MEDS: ASPIRIN 81 MG TABLET.DR PO (08:05)
[2023-09-30] MEDS: APIXABAN 5 MG TABLET PO (08:05)
--- NOTE | 2023-09-30 08:19 | P.HP_ITS ---
H&P: HPI History of Present Illness Chief complaint: CHEST SORENESS Narrative: Patient presented to the emergency room with some chest tightness and palpitations. In ER patient found to be in atrial fibrillation with rapid ventricular response. She was given a dose of initially of amiodarone. Given 1 dose of Cardizem. She does have a history of reaction to Cardizem but uncertain symptoms although shortness of breath is listed. We did not continue the Cardizem. I saw her on rounds this morning. She is resting comfortably in normal sinus rhythm Review of Systems ROS Status of ROS 10 or more systems reviewed and unremark able except as noted in history and below [facility] Medical History (Updated 09/30/23 @ 06:32 by Christin Barahona) HTN (hypertension) ?I10 - Essential (primary) hypertension (ICD-10) Mitral valve insufficiency ?I34.0 - Nonrheumatic mitral (valve) insufficiency (ICD-10) Dyspnea ?R06.00 - Dyspnea, unspecified (ICD-10) Surgical History (Updated 09/30/23 @ 06:36 by Brisa Archer) History of back surgery ?Z98.890 - Other specified postprocedural states (ICD-10) History of total right knee replacement ?Z96.651 - Presence of right artificial knee joint (ICD-10) History of knee replacement procedure of left knee ?Z96.652 - Presence of left artificial knee joint (ICD-10) Family History (Updated 09/30/23 @ 06:33 by Christin Barahona) Other Family history of cancer Family history of hypertension Family history of myocardial infarction Social History (Updated 09/30/23 @ 06:35 by Christin Barahona) Within the past year, how often did you have a drink containing alcohol: never Within the past year, how many standard drinks containing alcohol did you have on a typical day: 1 or 2 Within the past year, how often did you have six or more drinks on one occasion: never Total score: 0 Score interpretation: A score less than 3 is consistent with normal alcohol consumption. Smoking status: Never smoker Non-prescribed substance use: denies use Previous occupational history: retired Highest level of school completed/degree received: high school graduate Are you now , , , , never or living with a partner: In a typical week, how many times do you talk on the telephone with family, friends, or neighbors: 3 or more times per week How often do you get together with friends or relatives: 3 or more times per week How often do you attend religious or gnosticist services: 4 or more times per year Little interest or pleasure in doing things: not at all Feeling down, depressed, or hopeless: not at all Feel stressed/tense/nervous/anxious/difficulty sleeping: to some extent Life stressor details: back pain Do you think of yourself as: straight/heterosexual Gender Identity: female Meds Home Medications and Allergies Home Medications Medication Instructions Recorded Confirmed Type atorvastatin 40 mg tablet 40 mg PO DAILY 06/19/23 09/29/23 History escitalopram oxalate 10 mg tablet 10 mg PO DAILY 06/19/23 09/29/23 History (Lexapro) loperamide 2 mg capsule 2 mg PO DAILY 06/19/23 09/29/23 History (Anti-Diarrheal (loperamide)) losartan 100 mg tablet (Cozaar) 100 mg PO DAILY 06/19/23 09/29/23 History pantoprazole 40 mg tablet,delayed 40 mg PO DAILY 06/19/23 09/29/23 History release vitamin A-vitamin C-vit E-min 1 tab PO DAILY 06/19/23 09/29/23 History tablet (Vision tablet) benzonatate 200 mg capsule 200 mg PO TID PRN cough #60 caps 06/20/23 09/29/23 Rx isosorbide mononitrate 30 mg 30 mg PO Q24H #30 tabs 06/20/23 09/29/23 Rx tablet,extended release 24 hr liothyronine 5 mcg tablet 5 mcg PO QD #30 tabs 06/20/23 09/29/23 Rx promethazine 12.5 mg tablet 6.25 mg (1/2 x 12.5 mg) PO TID PRN 08/09/23 09/29/23 Rx nausea and vomiting #7 tabs amiodarone 200 mg tablet (Pacerone) 200 mg PO BID #60 tabs 09/30/23 Rx apixaban 5 mg tablet (Eliquis) 5 mg PO BID #60 tabs 09/30/23 Rx Allergies Allergy/AdvReac Type Severity Reaction Status Date / Time SERINA Inhibitors Allergy Severe Verified 06/19/23 07:21 diltiazem Allergy Severe shortness Verified 06/19/23 07:21 of breath gabapentin [From Neurontin] Allergy Severe Verified 06/19/23 07:21 metoprolol Allergy Severe Verified 06/19/23 07:21 amlodipine AdvReac Severe swelling Verified 06/19/23 07:21 morphine AdvReac Severe Nausea Verified 06/19/23 07:21 Exam Constitutional Vital Signs, click to edit/add: Last Vital Signs Temp 97.7 F 09/30/23 07:28 Pulse 69 09/30/23 08:10 Resp 13 09/30/23 08:10 BP 126/53 09/30/23 07:24 Pulse Ox 97 09/30/23 06:27 O2 Del Method Room Air 09/30/23 07:28 O2 Flow Rate 0 09/30/23 06:15 Documenting provider has reviewed patient's vital signs: yes Common normals: no apparent distress HENMT Common normals: normocephalic Chest Common normals: inspection of chest normal Respiratory Common normals: normal respiratory effort Cardio Common normals: regular rate and regular rhythm GI Common normals: Normal to inspection, nondistended, normoactive bowel sounds present Neuro Common normals: oriented x3 and CN's II-XII intact bilaterally Results Labs Labs: Short CBC 09/29/23 09/30/23 Range/Units 22:58 05:45 WBC 12.5 H 8.6 (4.0-11.0) 10^3/uL Hgb 13.9 12.1 (12.0-16.0) g/dL Hct 42.9 37.6 (36.0-48.0) % Plt Count 262 182 (150-450) 10^3/uL BMP 09/29/23 09/30/23 22:58 05:45 Sodium 139 143 Potassium 3.7 4.0 Chloride 102 108 H Carbon Dioxide 24.2 25.5 BUN 26.0 H 22.0 H Creatinine 1.41 H 1.18 H Glucose 155 H 112 H Calcium 9.6 8.7 Liver Function 09/29/23 09/30/23 Range/Units 22:58 05:45 Total Bilirubin 1.3 H 0.7 (0.2-1.0) mg/dL AST 18 8 L (15-37) U/L ALT 13 L 9 L (14-59) U/L Alkaline Phosphatase 113 85 (46-116) U/L Albumin 3.7 2.8 L (3.4-5.0) g/dL Urine 09/29/23 09/30/23 Range/Units 23:20 04:00 Urine Color Cancelled Dk. orange Urine Clarity Cancelled Clear Urine pH Cancelled Color interference A Ur Specific [place] Cancelled 1.025 Urine Protein Cancelled Color interference A Urine Glucose (UA) Cancelled Color interference A Assessment and Plan Assessment and Plan (1) Atrial fibrillation with rapid ventricular response: (2) Atrial fibrillation, new onset: Plan Tachycardia secondary to atrial fibrillation with rapid ventricular response. That has resolved. Will place patient on amiodarone 200 mg twice a day. Likely taper that as an outpatient. Check on echocardiogram and atrial size. Likely refer to cardiology as a at discharge. Started Melita today as well. Currently patient resting comfortably in normal sinus rhythm. Discharge medications see list, I will see patient in the office in the next 2 days. That is if she remained stable with ambulation this morning. Hypotension likely related to the amiodarone given IV. Common side effect, so far improved this morning. Will see how she tolerates the oral dosing Acute UTI-this is treated as an outpatient treatment. Will maintain current home regiment. Given 1 dose of Rocephin here. Acute elevation in BUN and creatinine-improved this morning. Continue to follow Maintain patient with observation status secondary to improving rapidly. Likely discharged home later this morning. If complications arise and she needs to stay an additional day we will change patient to inpatient status.
--- NOTE | 2023-09-30 08:28 | CM.NOTE ---
Medicare Outpatient Observation Notice discussed with pt, pt verbalizes understanding and signs paper. Original given to pt and copy placed on pt's chart.
--- NOTE | 2023-09-30 08:28 | CM.NOTE ---
Dr. Graves will start pt on Eliquis daily, discussed new medication with pt. Education provided and free 30 day trial card for Eliquis given to pt.
[2023-09-30] MEDS: AMIODARONE HCL 200 MG TABLET PO (08:41)
[2023-09-30 09:28] LABS: Troponin I High Sensitivity 21.6 pg/mL (4.0-51.3)
--- OUTSIDE RECORDS SUMMARY | 2023-09-30 13:36 | XMS_ITS | CCD ---
Author Name Unknown Address [address] [place] [address] Organization [facility] Care Team Providers Care Editor Greeting Card Name Role Phone ASHLEY, FAN H. Referring [...] Provider Pat Newell MD Primary Care Provider [phone] Pat Newell MD Primary Care Provider [phone] MD Pat Newell Primary Care Provider [phone] MD Pat Newell Referring Provider [phone] Self, Referral Attending Provider Unavailable Pat Newell MD Primary Care Provider [phone] MYLENE ALMEIDA Referring Unavailable HOPAT Soto [...] Unavailable MD Pat Newell Primary Care Provider [phone] MD Pat Newell Referring Provider Self, Referral Attending Provider Unavailable Self, Referral Attending Unavailable Pat Newell Primary Care Unavailable Pat Newell Referring Unavailable Self, Referral Admitting Unavailable CLINTON DORAN Attending Unavailable DNIORAH MONTES Attending Unavailable CLINTON DORAN Referring Unavailable MOUKACLINTON ENGEL Attending Unavailable Allergies Allergy Classification Reported Allergen(s) Allergy Type Date of Onset Reaction(s) Facility Angiotensin Converting Enzyme (SERINA) Inhibitors (1 source) Angiotensin Converting Enzyme (Serina) Inhibitors Drug Allergy 08-25-2020 [facility] Repository Opioid Agonists (2 sources) Codeine; Translations: [morphine] Drug Allergy 04-04-2020 [facility] (5 sources) Angiotensin-conv erting enzyme inhibitor agent; Translations: [SERINA INHIBITORS] Drug Allergy 04-28-2012 [facility] (10 sources) Codeine; Translations: [CODEINE] Drug Allergy 04-28-2012 [facility] (9 sources) HYDROmorphone; Translations: [HYDROMORPHONE (BULK)] Drug Allergy 05-12-2012 Vomiting [facility] (7 sources) Angiotensin-conv erting enzyme inhibitor agent Drug Allergy 04-28-2012 [facility] (7 sources) amLODIPine; Translations: [AMLODIPINE] Drug Allergy 04-24-2022 [facility] (3 sources) Acetaminophen; Translations: [acetaminophen] Drug Allergy 07-28-2017 [facility] (3 sources) HYDROcodone; Translations: [hydrocodone] Drug Allergy 07-28-2017 [facility] (5 sources) Meperidine; Translations: [meperidine] Drug Allergy 07-28-2017 [facility] (5 sources) Morphine; Translations: [morphine] Drug Allergy 07-28-2017 [facility] (1 source) Angiotensin Converting Enzyme (Serina) Inhibitors Drug allergy (disorder) 04-22-2013 [facility] Rep[facility] (1 source) Codeine Drug Allergy 04-29-2013 [facility] Rep[facility] (1 source) Meperidine Drug Allergy 04-29-2013 [facility] Rep[facility] (1 source) Angiotensin Converting Enzyme (Serina) Inhibitors Drug allergy (disorder) 07-28-2017 [facility] Repository (1 source) Amoxicillin; Translations: [AMOXICILLIN] Drug Allergy 03-13-2023 [facility] (1 source) gabapentin; Translations: [GABAPENTIN] Drug Allergy 05-25-2019 [facility] Medications Current Medications Medication Drug [...] 1:00am docusate sodium 50 mg / sennosides, long term 8.6 mg oral tablet (2 sources) Start: [...] Coronary arteriosclerosis; Translations: [Atherosclerotic heart disease of [place] coronary artery without angina pectoris] Onset: 04-24-2022 [...] doesn't want to. We will inform provider. [facility] 36on 09-19-2023 36 Left voicemail for patient to schedule cardiopulmonary exercise test. [facility] Office Visiton 09-03-2023 Follow-up visit [id number] Brandi Hubbard cca 1945 F Date Provider Department Center 09/03/2023 CLINTON PETERS [facility] Family History Problem Relation Age of Onset Coronary artery disease Father Hypertension Father Family Status - Relation Status Age at Father Level of Service:67323 [place] OFFICE/OUTPATIENT ESTABLISHED MOD MDM 30 MIN [facility] Documentationon 08-06-2023 Documentation [id number] Brandi Hubbard cca S 1945 F Date Provider Department Center 08/06/2023 [facility] [place] [facility]AS Family History Problem Relation Age of Onset Coronary artery disease Father Hypertension Father Family Status - Relation Status Age at Father [facility] HPon 08-06-2023 HP H&P reviewed. The patient was examined and there are no changes to the H&P. [facility] NURSNOTEon 08-06-2023 NURSNOTE Patient to be seen i n clinic by Dr. Doran or nurse practitioner in 1 month to discuss VIOLA results and medical plan. Message left with [facility] to call patient with appoint date and time. Patient provided the number ([phone]) to call [facility] if she does not receive an appointment call by 08/08/2023. [facility] NURSNOTE Bedside swallow stud y completed and passed. [facility] NURSNOTE RN educated pt on d/ c instructions. RN encouraged pt to voice any questions or concerns. Pt verbalizes no questions or concerns at this time. Pt was wheeled off of unit with all of belongings. [facility] Prep for Procedureon 023 Prep for Procedure [id number] Brandi Hubbard cca 1945 F Date Provider Department [place] 08/06/2023 CLINTON PETERS [facility] [place] Count Family History Problem Relation Age of Onset Coronary artery disease Father Hypertension Father Family Status - Relation Status Age at Father [facility] Telephoneon 07-28-2023 Telephone [id number] Brandi Hubbard cca 1945 F Date Provider Department Center 07/28/2023 [facility] [place] [facility]AS Family History Problem Relation Age of Onset Coronary artery disease Father Hypertension Father Family Status - Relation Status Age at Father [facility] 37on 07-08-2023 37 *Resume lasix. Take 20mg daily x1 week then go back to every other day. *Have stress test done. *Watch your fluid intake. Try to limit to 2 liters a day. *Eat a low sodium diet. [facility] HPon 07-08-2023 HP Patient here for [facility] low up TB for SOB and chest pain. She was started on isosorbide. She is scheduled for outpatient stress test next week. She denies chest pain. SOB is improving. C/o LE edema which resolves by morning. C/o fatigue. Review of Systems Cardiovascular: Positive for leg swelling. All other systems reviewed and are negative. [facility] Office Visiton 07-08-2023 Follow-up visit [id number] Brandi Hubbard cca 1945 F Date Provider Department Center 07/08/2023 [facility] Family History Problem Relation Age of Onset Coronary artery disease Father Hypertension Father Family Status - Relation Status Age at Father Level of Service:08796 [place] OFFICE/OUTPATIENT ESTABLISHED MOD [facility] 30-39 MIN Reason for Visit and Comments: Fatigue [46] Congestive Heart Failure [127] Edema [[id number]] Shortness of Breath [589589] Normal [facility] MM screening mammo BI w/CADo n 06-11-2023 MM screening mammo BI w/CAD [facility] [place] [address] [place] [address] Mammography Report Signed Patient: Son Hubbard MR#: [id number] : 1945 Acct:[id number] Age/Sex: 78 / F ADM Date: 06/11/23 Loc: [place] Room: Type: [facility] Attending Dr: Referral Self Copies to: [...] Charlie Green M.D.06/11/2023 12:04 PM Dictation Location: [facility] Transcribed By: [facility] 06/11/231203 Dictated By: Charlie Green II, MD 06/11/231200 Signed By: 06/11/23 120 [facility] Office Visiton 03-28-2023 Follow-up visit [id number] Brandi Hubbard cca 1945 F Date Provider Department Center 03/28/2023 CLNITON PETERS [facility] Family History Problem Relation Age of Onset Coronary artery disease Father Hypertension Father Family Status - Relation Status Age at Father Level of Service:20730 [place] OFFICE/OUTPATIENT ESTABLISHED LOW MDM 20-29 MIN Reason for Visit and Comments: Follow-up [277644] - 6 MONTH FOLLOW UP Normal [facility] INSULINon 11-13-2022 Insulin 16.2 uIU/mL Normal 2.6-24.9 [facility] Comment on above: Performed By: #### I NSULIN ####[facility] [id number] [address]Dr. Isi Britton CBC AUTO DIFFon 11-12-2022 BASO # 0.0 103/ul Normal 0.0-0.1 [facility] Comment on above: Performed By: #### C BC #### [facility] Laboratory [address] [address] [address] Isi Britton Basophils/100 WBC (Bld) 0.6 % Normal 0.2-2.0 [facility] Comment on above: Performed By: #### C BC #### [facility] [address] [address] [address] Isi Britton EO # 0.1 103/ul Normal 0.0-0.7 [facility] Comment on above: Performed By: #### C BC #### [facility] [address] [address] [address] Isi Britton Eosinophils/100 WBC (Bld) 1.3 % Normal 0.9-7.0 [facility] Comment on above: Performed By: #### C BC #### [facility] [address] [place] [address] Dr. Isi Britton Erythrocyte distribution width (RBC) [Ratio] 13.1 % Normal 11.0-15.0 [facility] Comment on above: Performed By: #### C BC #### [facility] [address] [place] [address] Dr. Isi Britton Hematocrit (Bld) [Volume fraction] 40.1 % Normal 36.0-48.0 [facility] Comment on above: Performed By: #### C BC #### [facility] [address] [place] [address] Dr. Isi Britton Hemoglobin (Bld) [Mass/Vol] 13.5 g/dL Normal 12.0-16.0 [facility] Comment on above: Performed By: #### C BC #### [facility] [address] [place] [address] Dr. Isi Britton IG # 0.01 10e3/ul Normal 0.00-0.03 [facility] Comment on above: Performed By: #### C BC #### [facility] [address] [place] [address] Dr. Isi Britton IG % 0.2 % Normal 0.0-0.5 [facility] Comment on above: Performed By: #### C BC #### [facility] [address] [place] [address] Dr. Isi Britton LYMPH # 1.6 103/ul Normal 1.2-3.8 [facility] Comment on above: Performed By: #### C BC #### [facility] [address] [place] [address] Dr. Isi Britton Lymphocytes/100 WBC (Bld) 24.9 % Normal 20.5-60.0 [facility] Comment on above: Performed By: #### C BC #### [facility] [address] [place] [address] Dr. Isi Britton MANUAL DIFF REQ NO Normal [facility] Comment on above: Performed By: #### C BC #### [facility] [address] [place] [address] Dr. Isi Britton MCH (RBC) [Entitic mass] 31.9 pg Normal 26.7-34.0 [facility] Comment on above: Performed By: #### C BC #### [facility] [address] [place] [address] Dr. Isi Britton MCHC (RBC) [Mass/Vol] 33.7 g/dL Normal 29.9-35.2 [facility] Comment on above: Performed By: #### C BC #### [facility] [address] [place] [address] Dr. Isi Britton MCV (RBC) [Entitic vol] 94.8 fL Normal 81.0-99.0 [facility] Comment on above: Performed By: #### C BC #### [facility] [address] [place] [address] Dr. Isi Britton MONO # 0.6 103/ul Normal 0.3-0.8 [facility] Comment on above: Performed By: #### C BC #### [facility] [address] [place] [address] Dr. Isi Britton Monocytes/100 WBC (Bld) 10.1 % Normal 1.7-12.0 [facility] Comment on above: Performed By: #### C BC #### [facility] [address] [place] [address] Dr. Isi Britton NEUT # 3.9 103/ul Normal 1.4-6.5 [facility] Comment on above: Performed By: #### C BC #### [facility] [address] [place] [address] Dr. Isi Britton Neutrophils/100 WBC (Bld) 62.9 % Normal 43.0-75.0 [facility] Comment on above: Performed By: #### C BC #### [facility] [address] [place] [address] Dr. Isi Britton Platelet mean volume (Bld) [Entitic vol] 10.5 fL Normal 9.5-13.5 [facility] Comment on above: Performed By: #### C BC #### [facility] [address] [address] [address] Isi Britton PLT 220 103/ul Normal 150-450 [facility] Comment on above: Performed By: #### C BC #### [facility] [address] [address] [address] Isi Britton RBC 4.23 106/ul Normal 4.20-5.40 [facility] Comment on above: Performed By: #### C BC #### [facility] [address] [address] [address] Isi Britton WBC 6.2 103/ul Normal 4.0-11.0 [facility] Comment on above: Performed By: #### C BC #### [facility] [address] [place] [address] Dr. Isi Britton FREE T3on 11-12-2022 FREE T3 2.21 pg/mlL Normal 2.18-3.98 [facility] Comment on above: Performed By: #### L IPID, CMP, T7, FT3, TSH #### [facility] [address] [address] [address] Isi Britton FREE T4on 11-12-2022 Free T4 [Mass/Vol] 1.04 ng/dL Normal 0.76-1.46 [facility] Comment on above: Performed By: #### I RONI, FT4 ####[facility] [address] [address]Dr. Isi Britton FREE THYROXINE INDEX T7on FTI 3.38 Normal 1.30-4.50 [facility] Comment on above: Performed By: #### L IPID, CMP, T7, FT3, TSH #### [facility] [address] [address] [address] Isi Britton T3U 36.0 % Normal 30.0-39.0 [facility] Comment on above: Performed By: #### L IPID, CMP, T7, FT3, TSH #### [facility] [address] [place] [address] Dr. Isi Britton T4 [Mass/Vol] 9.40 ug/dL Normal 4.80-13.90 [facility] Comment on above: Performed By: #### L IPID, CMP, T7, FT3, TSH #### [facility] [address] [address] [address] Isi Britton GLYCOHEMOGLOBIN A1Con 2022 ADA RECOMMENDATION SEE BELOW Normal [facility] Comment on above: Result Comment: ADA RECOMMENDED LIMIT 4.0 - 6.0 ADA THERAPEUTIC TARGET < 7.0 ACTION SUGGESTED > 7.0 Performed By: #### A 1C #### [facility] [address] [address] [address] Isi Britton Glucose [Mass/Vol] 111 mg/dL Normal [facility] Comment on above: Performed By: #### A 1C #### [facility] [address] [place] [address] Dr. Isi Britton HbA1c (Bld) [Mass fraction] 5.5 % Normal 4.5-6.2 [facility] Comment on above: Performed By: #### A 1C #### [facility] [address] [place] [address] Dr. Isi Britton IRONon 11-12-2022 Iron [Mass/Vol] 71.0 ug/dL Normal 50.0-170.0 [facility] Comment on above: Performed By: #### I RONI, FT4 #### [facility] [address] [place] [address] Dr. Isi Britton LIPID PROFILEon 11-12-2022 CHOL-HDL RATIO NORM SEE BELOW Normal [facility] Comment on above: Result Comment: 3.3 - 4.4 LOW RISK 4.4 - 7.1 AVERAGE RISK 7.1 - 11.0 MODERATE RISK >11.0 HIGH RISK Performed By: #### L IPID, CMP, T7, FT3, TSH #### [facility] [address] [place] [address] Dr. Isi Britton Cholesterol [Mass/Vol] 139 mg/dL Normal <=200 [facility] Comment on above: Performed By: #### L IPID, CMP, T7, FT3, TSH #### [facility] [address] [address] [address] Isi Britton Cholesterol in HDL [Mass/Vol] 70 mg/dL Critically high 40-60 [facility] Comment on above: Performed By: #### L IPID, CMP, T7, FT3, TSH #### [facility] [address] [address] [address] Isi Britton Cholesterol in LDL [Mass/Vol] 49.4 mg/dL Normal [facility] Comment on above: Performed By: #### L IPID, CMP, T7, FT3, TSH #### [facility] [address] [address] [address] Isi Britton Cholesterol.total/C holesterol in HDL [Mass ratio] 2.0 {ratio} Normal [facility] Comment on above: Performed By: #### L IPID, CMP, T7, FT3, TSH #### [facility] [address] [address] [address] Isi Britton HDL NORMAL > or = 60 mg/dl - LO W CARDIOVASCULAR RISK <40 mg/dl - HIGH CARDIOVASCULAR RISK Normal [facility] Comment on above: Performed By: #### L IPID, CMP, T7, FT3, TSH #### [facility] [address] [address] [address] Isi Britton LDL CALC NORMAL SEE BELOW Normal [facility] Comment on above: Result Comment: <100 mg/dl OPTIMAL 100 - 129 mg/dl NEAR OR ABOVE OPTIMAL 130 - 159 mg/dl BORDERLINE HIGH 160 - 189 mg/dl HIGH >190 mg/dl VERY HIGH Performed By: #### L IPID, CMP, T7, FT3, TSH #### [facility] [address] [address] [address] Isi Britton Triglyceride [Mass/Vol] 98 mg/dL Normal <=150 [facility] Comment on above: Performed By: #### L IPID, CMP, T7, FT3, TSH #### [facility] [address] [address] [address] Isi Britton VLDL CALC 19.6 mg/dL Normal [facility] Comment on above: Performed By: #### L IPID, CMP, T7, FT3, TSH #### [facility] [address] [address] [address] Isi Britton PROF 14(COMP METB)on 023 Albumin [Mass/Vol] 3.9 g/dL Normal 3.4-5.0 [facility] Comment on above: Performed By: #### L IPID, CMP, T7, FT3, TSH #### [facility] [address] [place] [address] Dr. Isi Britton Albumin/Globulin [Mass ratio] 1.2 {ratio} Normal [facility] Comment on above: Performed By: #### L IPID, CMP, T7, FT3, TSH #### [facility] [address] [place] [address] Dr. Isi Britton ALP [Catalytic activity/Vol] 99 U/L Normal 46-116 [facility] Comment on above: Performed By: #### L IPID, CMP, T7, FT3, TSH #### [facility] [address] [place] [address] Dr. Isi Britton ALT [Catalytic activity/Vol] 26 U/L Normal 14-59 [facility] Comment on above: Performed By: #### L IPID, CMP, T7, FT3, TSH #### [facility] [address] [place] [address] Dr. Isi Britton Anion gap [Moles/Vol] 13.1 mmol/L Normal [facility] Comment on above: Performed By: #### L IPID, CMP, T7, FT3, TSH #### [facility] [address] [place] [address] Dr. Isi Britton AST [Catalytic activity/Vol] 20 U/L Normal 15-37 [facility] Comment on above: Performed By: #### L IPID, CMP, T7, FT3, TSH #### [facility] [address] [place] [address] Dr. Isi Britton Bilirubin [Mass/Vol] 0.9 mg/dL Normal 0.2-1.0 [facility] Comment on above: Performed By: #### L IPID, CMP, T7, FT3, TSH #### [facility] [address] [address] [address] Isi Britton Calcium [Mass/Vol] 9.4 mg/dL Normal 8.5-10.1 [facility] Comment on above: Performed By: #### L IPID, CMP, T7, FT3, TSH #### [facility] [address] [address] [address] Isi Britton Chloride [Moles/Vol] 104 mmol/L Normal 98-107 [facility] Comment on above: Performed By: #### L IPID, CMP, T7, FT3, TSH #### [facility] [address] [place] [address] Dr. Isi Britton CO2 [Moles/Vol] 29.2 mmol/L Normal 21.0-32.0 [facility] Comment on above: Performed By: #### L IPID, CMP, T7, FT3, TSH #### [facility] [address] [place] [address] Dr. Isi Britton Creatinine [Mass/Vol] 1.36 mg/dL Critically high 0.55-1.02 [facility] Comment on above: Performed By: #### L IPID, CMP, T7, FT3, TSH #### [facility] [address] [place] [address] Dr. Isi Britton EGFR-AF NIGERIAN 46 mL/min/1.73m2 Critically low >=60 [facility] Comment on above: Performed By: #### L IPID, CMP, T7, FT3, TSH #### [facility] [address] [place] [address] Dr. Isi Britton EGFR-NON AF NIGERIAN 38 mL/min/1.73m2 Critically low >=60 [facility] Comment on above: Performed By: #### L IPID, CMP, T7, FT3, TSH #### [facility] [address] [place] [address] Dr. Isi Britton Globulin (S) [Mass/Vol] 3.3 g/dL Normal [facility] Comment on above: Performed By: #### L IPID, CMP, T7, FT3, TSH #### [facility] [address] [address] [address] Isi Britton Glucose [Mass/Vol] 107 mg/dL Critically high 74-106 [facility] Comment on above: Performed By: #### L IPID, CMP, T7, FT3, TSH #### [facility] [address] [address] [address] Isi Britton Potassium [Moles/Vol] 4.3 mmol/L Normal 3.5-5.1 [facility] Comment on above: Performed By: #### L IPID, CMP, T7, FT3, TSH #### [facility] [address] [place] [address] Dr. Isi Britton Protein [Mass/Vol] 7.2 g/dL Normal 6.4-8.2 [facility] Comment on above: Performed By: #### L IPID, CMP, T7, FT3, TSH #### [facility] [address] [place] [address] Dr. Isi Britton Sodium [Moles/Vol] 142 mmol/L Normal 136-145 [facility] Comment on above: Performed By: #### L IPID, CMP, T7, FT3, TSH #### [facility] [address] [place] [address] Dr. Isi Britton Urea nitrogen [Mass/Vol] 24.0 mg/dL Critically high 7.0-18.0 [facility] Comment on above: Performed By: #### L IPID, CMP, T7, FT3, TSH #### [facility] [address] [place] [address] Dr. Isi Britton Urea nitrogen/Creatinine [Mass ratio] 17.6 mg/mg Normal The [facility] Comment on above: Performed By: #### L IPID, CMP, T7, FT3, TSH #### [facility] Laboratory [address] [place] [address] Dr. Isi Britton TSHon 11-12-2022 TSH 1.802 uIU/mL Normal 0.358-3.740 The [facility] Comment on above: Performed By: #### L IPID, CMP, T7, FT3, TSH #### [facility] [address] [place], [place] [address] Dr. Isi Britton Covid-19 PCR ([facility])on 09-11 SARS-CoV-2 (COVID-19) RNA ERICK+probe Ql (Unsp spec) Not detected Normal NOT DETECTED The [facility] Comment on above: Result Comment: This test is not yet approved or cleared by the [place] FDA. When there are no FDA-approved or cleared tests available, and other criteria are met, FDA can make tests available under an emergency access mechanism called an Emergency Use Authorization (EUA). The EUA for this test is supported by the Collar Padder Blindstitch of Health and Human Service's (HHS's) declaration [...] consistent with SARS-CoV-2. Performed By: #### [facility] ####[facility] [address] [place], [place] [address]EsDr. Isi Britton ECHOCARDIO M/2D COMPLETEon 1 09-09-2021 ECHOCARDIO M/2D COMPLETE Patient: SON HUBBARD Exam Date: 07/10/2022 : 1945 Gender:F Ordering : DR CLINTON DORAN M.D. Admission #: [id number] Family : DR PAT NEWELL . Order #: [id number] CLICK HERE TO VIEW EXAM ECHOCARDIOGRAM REPORT [...] Johnson M.D. on 07/10/2022 at 15:37 Normal [facility] ANES POSTPROC EVALon 05- 022 ANES POSTPROC EVAL HNO ID: [id number] Author: Abner Cox II, DO Service: Anesthesiology Author Type: Anesthesiologist Type: Anesthesia Postprocedure Evaluation Filed: 05/15/2022 11:10 AM Note Text: POST ANESTHESIA EVALUATION NOTE : 1945 Procedure Summary Date: 05/15/22 Room / Location: [address] Anesthesia Start: 928 Anesthesia Stop: 949 [...] May 15, 2022 TIME: 11:10 AM CSN: [id number] Normal [facility] ANES PRE-OPon 05-15-2022 ANES PRE-OP HNO ID: [id number] Author: Abner Cox II, DO Service: Anesthesiology Author Type: Anesthesiologist Type: Anesthesia Preprocedure Evaluation Filed: 05/15/2022 8:52 AM Note Text: ANESTHESIOLOGY DAY OF SURGERY NOTE : 1945 Procedure Information Date/Time: 05/15/22 0930 Procedures: PHACOEMULSIFICATION CATARACT IMPLANT INTRAOCULAR LENS W/O ENDOSCOPIC CYCLOPHOTOCOAGULATION (Right: Eye) OPHTHALMIC BIOMETRY BY PARTIAL COHERENCE INTERFEROMETRY W/INTRAOCULAR LENS POWER CALCULATION (Right: Eye) Location: [address] Surgeons: Mylene Almeida V, MD Estimated [...] May 15, 2022 TIME: 8:51 AM CSN: [id number] [facility] OPERATIVE NOon 05-15-2022 OPERATIVE NO HNO ID: [id number] Author: Mylene Almeida V, MD Service: Ophthalmology Author Type: Physician Type: Operative Report Filed: 05/15/2022 9:46 AM Note Text: OPERATIVE REPORT DATE OF SERVICE: May 15, 2022 PRIMARY SURGEON: Mylene Almeida M.D. CHILD CARE AIDE: None Procedure(s) (LRB): PHACOEMULSIFICATION CATARACT IMPLANT INTRAOCULAR [...] corneal incision was created temporally with a Northway blade then a 2.4 mm keratome. The [...] Implant Name Type Inv. Item Serial No. Crepe Machine Operator Lot No. LRB No. Used Action Model No. LENS IOL 0D +18 TALAT UV ABS - [id number] Intraocular Lens LENS IOL 0D +18 TALAT UV ABS [id number] [employer] Right 1 Implanted [id number] was inserted [...] 9:44 AM - Comanage with Dr Wilson; [facility] POD #1 Mylene ALMEIDA MD [facility] ANES POSTPROC EVALon 022 ANES POSTPROC EVAL HNO ID: [id number] Author: Cristian Parker MD Service: Anesthesiology Author Type: Anesthesiologist Type: Anesthesia Postprocedure Evaluation Filed: 05/01/2022 11:15 AM Note Text: POST ANESTHESIA EVALUATION NOTE : 1945 Procedure Summary Date: 05/01/22 Room / Location: [address] Anesthesia Start: 4 Anesthesia Stop: 1103 [...] Documentation SIGNATURE: Cristian Parker MD PATIENT NAME: Sno Hubbard DATE: May 01, 2022 TIME: 11:14 AM CSN: [id number] Normal [facility] ANES PRE-OPon 05-01-2022 ANES PRE-OP HNO ID: [id number] Author: Cristian Parker MD Service: Anesthesiology Author Type: Anesthesiologist Type: Anesthesia Preprocedure Evaluation Filed: 05/01/2022 10:04 AM Note Text: ANESTHESIOLOGY DAY OF SURGERY NOTE : 1945 Procedure Information Date/Time: 05/01/22 1030 Procedures: PHACOEMULSIFICATION CATARACT IMPLANT INTRAOCULAR LENS W/O ENDOSCOPIC CYCLOPHOTOCOAGULATION (Left: Eye) OPHTHALMIC BIOMETRY BY PARTIAL COHERENCE INTERFEROMETRY W/INTRAOCULAR LENS POWER CALCULATION (Left: Eye) Location: [place] [address] / [facility] Surgeons: Mylene Almeida V, MD Estimated [...] May 01, 2022 TIME: 10:03 AM CSN: [id number] [facility] NURSING PROGon 05-01-2022 NURSING PROG HNO ID: [id number] Author: Deepika Stephen RN Service: ? Author [...] Deepika Stephen RN In Department: AMBULATORY SURGERY [facility] OPERATIVE NOon 05-01-2022 OPERATIVE NO HNO ID: [id number] Author: Mylene Almieda V, MD Service: Ophthalmology Author Type: Physician Type: Operative Report Filed: 05/01/2022 11:01 AM Note Text: OPERATIVE REPORT DATE OF SERVICE: May 01, 2022 PRIMARY SURGEON: Mylene Almeida M.D. CHILD CARE AIDE: None Procedure(s) (LRB): PHACOEMULSIFICATION CATARACT IMPLANT INTRAOCULAR [...] corneal incision was created temporally with a Northway blade then a 2.4 mm keratome. The [...] Implant Name Type Inv. Item Serial No. Crepe Machine Operator Lot No. LRB No. Used Action Model No. LENS IOL 0D +19.5 TALAT UV ABS - [id number] Intraocular Lens LENS IOL 0D +19.5 TALAT UV ABS [id number] [employer] Left 1 Implanted [id number] [...] 10:59 AM - Comanage with Dr Wilson; [facility] POD #1 Mylene ALMEIDA MD [facility] HISTORY PHYSICALon HISTORY PHYSICAL HNO ID: [id number] Author: Chantal Can APRN.POWER MANAGER Service: ? Author Type: Nurse Practitioner [...] fevers. Neuro: No history of TIA's, stroke, BOXER OPERATOR tumor, impaired sensorium, hemiplegia, paraplegia or quadraplegia. No neurological symptoms or problems. Respiratory: No history of current cough or dyspnea, or pneumonia in the past 6 weeks. No history of respiratory/pulmonary symptoms or problems. 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 Normal [facility] Covid-19 PCR ([facility])on 03-12 SARS-CoV-2 (COVID-19) RNA ERICK+probe Ql (Unsp spec) Not detected Normal NOT DETECTED [facility] Comment on above: Result Comment: This test is not yet approved or cleared by the [place] FDA. When there are no FDA-approved or cleared tests available, and other criteria are met, FDA can make tests available under an emergency access mechanism called an Emergency Use Authorization (EUA). The EUA for this test is supported by the Pinch of Health and Human Service's (HHS's) declaration [...] consistent with SARS-CoV-2. Performed By: #### C [facility] #### [facility] [address] [place] [address] Dr. Isi Birmingham 01-11-2022 CNPN Telephone (OPHTLN) SON HUBBARD ([id number]) 1945 F Date Time Provider Department 01/11/22 MYLENE ALMEIDA During your visit today, we recorded the following information about you: Hernan Vences 01/11/2022 11:37 AM Signed LVM for patient to schedule at Cataract Evaluation with Dr. Almeida in [place] per faxed referral from Dr. Wilson. First [...] with Dr. Almeida for March 07 in [place] Allergies As of Date: 01/11/2022 Noted Allergy [...] HERNAN VENCES on 01/16/22 Normal [facility] C REACTIVE PROTEINon 021 CRP [Mass/Vol] 5.1 mg/L Normal 0.0-7.0 [facility] Comment on above: Performed By: #### 6 1405 #### [address] CERVICAL SPINE [address] [facility] 03-12-2021 CERVICAL SPINE [address] [facility] Department of Radiology [address] [place] [id number] ===== Patient Name: SON HUBBARD : 1945 Sex: F Age: Race: White Pt. Location: [facility] Patient Status: D Ordered Date: 03/12/2021 4:00:00 PM Completed Date: 03/12/2021 04:25 PM Requesting Provider: REZA HARVEY Attending Provider: REZA HARVEY Report Copy To: Signs & Symptoms: M54.2 Cervicalgia I10 History: Radhika Comments: Exam: CERVICAL SPINE 2 OR 3 [facility] ===== CERVICAL SPINE 2 OR 3 [facility] 03/12/2021 4:25 PM CLINICAL INDICATIONS: M54.2 [...] curvature. Electronically signed: Rosendo Salvador. Transcribed by: [email or web address], User Resident: Electronically Signed by: ROSENDO SALVADOR @ 03/13/2021 08:58 AM Normal The [facility] LUMBAR SPINE [address] [facility] LUMBAR SPINE [address] [facility] Department of Radiology [address] [place] [phone] ===== Patient Name: SON HUBBARD : 1945 Sex: F Age: Race: White Pt. Location: 264 Patient Status: D Ordered Date: 03/12/2021 4:00:00 PM Completed Date: 03/12/2021 04:25 PM Requesting Provider: REZA HARVEY Attending Provider: REZA HARVEY Report Copy To: Signs & Symptoms: M54.5 Low back pain I10 History: [place] Comments: Exam: LUMBAR SPINE 2 OR 3 [facility] ===== LUMBAR SPINE 2 OR 3 [facility] 03/12/2021 4:25 PM CLINICAL INDICATIONS: M54.5 [...] levels. Electronically signed: Rosendo Salvador. Transcribed by: [email or web address], User Resident: Electronically Signed by: ROSENDO SALVADOR @ 03/13/2021 10:49 AM Normal [facility] S-I JOINTS MIN 4 [facility] 03-12 S-I JOINTS MIN 4 [facility] Department of Radiology [address] [place] [phone] ===== Patient Name: SON HUBBARD : 1945 Sex: F Age: Race: White Pt. Location: [facility] Patient Status: D Ordered Date: 03/12/2021 4:00:00 PM Completed Date: 03/12/2021 04:25 PM Requesting Provider: REZA HARVEY Attending Provider: REZA HARVEY Report Copy To: Signs & Symptoms: M54.5 Low back pain I10 History: [place] Comments: Exam: S-I JOINTS MIN 4 [facility] [...] report. Electronically signed: Brisa Jackson. Transcribed by: [email or web address], User Resident: HARRISON HUNTER Electronically Signed by: BRISA JACKSON @ 03/13/2021 10:46 AM I personally read this/these film(s) with this resident Normal [facility] SEDIMENTATION RATEon 021 SED RATE 37 mm/hr High 0-20 [facility] Comment on above: Performed By: #### 5 [id number] #### [facility] [address] [facility]. [address] Cardiovascular Lab Reporton 05-12-2020 Cardiovascular Lab Report [facility] Patient Name: Son Hubbard [facility] MR #: [id number] Physician: Clinton Pham Department of Cornelio Doran Medicine Service Date: 05/11/2020 Division of Birthdate: 1945 Cardiology Room #: Adult Cardiovascular Services [facility] [address] [place] [address] Cardiovascular Laboratory Report INDICATION: The patient is a 75-year-old woman, who recently was evaluated in Cardiology Clinic because of a class 3 heart failure symptoms. She was evaluated by initially an echocardiography, then a transesophageal echocardiogram that showed [id number]-iw-[id number] mitral regurgitation and mild aortic valve regurgitation. [...] informed consent. She was brought to labor relations director in a fasting state. Modified Dom's test was favorable on the left. Access in the left radial artery was obtained using micropuncture technique. A 6-Montenegrin x 11 cm Hydrophilic sheath was advanced. [...] coronary artery. This was exchanged to a 6-Montenegrin AR2 guiding catheter followed by a 6-Montenegrin AL1 guiding catheter, which was able to engage the right coronary artery. Initial angiography was performed. A [employer] wire was advanced into the distal RCA. An Emerge 3.0 x 15 mm balloon was used to perform balloon dilatation at 8 atmospheres in the proximal RCA. Angiography revealed suboptimal results, this was treated using a Synergy 3.0 x 20 mm drug-eluting stent deployed at 12 atmospheres and post dilated using NC [employer] [place] 3.0 x 15 mm noncompliant balloon inflated [...] Doran M.D. Date Trans: 05/12/2020 06:46 Tommy/cale [id number] cc: Pat Newell M.D. [address] [place] [address] Normal [facility] BNP (B-TYPE NATRIURETIC PEPT EFE)on 04-05-2020 Natriuretic peptide B (Bld) [Mass/Vol] 26 pg/mL Normal 0-100 The [facility] Comment on above: Order Comment: No: D o not add to previous draw Result Comment: Give n the appropriate clinical setting a BNP result of >100 pg/mL indicates congestive heart failure. Performed By: #### 8 5123 #### [facility] [address] CBC COMPLETE BLOOD COUNTon 0 04-05-2020 Erythrocyte distribution width (RBC) [Ratio] 13.1 % Normal 11.5-15.0 [facility] Comment on above: Order Comment: No: D o not add to previous draw Performed By: #### 5 0608 #### [facility] [address] [facility] [place] [place] [address], [facility] Hematocrit (Bld) [Volume fraction] 42.1 % Normal 36.0-45.0 [facility] Comment on above: Order Comment: No: D o not add to previous draw Performed By: #### 5 0608 #### [facility] [address] [place] [address], [facility] Hemoglobin (Bld) [Mass/Vol] 14.3 g/dL Normal 12.0-15.0 [facility] Comment on above: Order Comment: No: D o not add to previous draw Performed By: #### 5 0608 #### [facility] [address] [place] [address], [facility] MCH (RBC) [Entitic mass] 31.0 pg Normal 27.0-33.0 [facility] Comment on above: Order Comment: No: D o not add to previous draw Performed By: #### 5 0608 #### [facility] [address] [place] [address], [facility] MCHC (RBC) [Mass/Vol] 34.0 g/dL Normal 32.0-35.0 [facility] Comment on above: Order Comment: No: D o not add to previous draw Performed By: #### 5 0608 #### [facility] [address] [place] [address], [facility] MCV (RBC) [Entitic vol] 91.3 fL Normal 82.0-98.0 [facility] Comment on above: Order Comment: No: D o not add to previous draw Performed By: #### 5 0608 #### [facility] [address] Nucleated RBC/100 WBC (Bld) [Ratio] 0 % Normal 0-0 [facility] Comment on above: Order Comment: No: D o not add to previous draw Performed By: #### 5 0608 #### [facility] [address] [facility] [place] [address], [facility] PLAT CNT 249 10*3/uL Normal 150-400 [facility] Comment on above: Order Comment: No: D o not add to previous draw Performed By: #### 5 0608 #### [facility] [address] [facility] [place] [place] [address], [facility] RBC (Bld) [#/Vol] 4.61 10*6/uL Normal 3.80-5.00 The [facility] Comment on above: Order Comment: No: D o not add to previous draw Performed By: #### 5 0608 #### [facility] [address] [place] [address], [facility] WBC (Bld) [#/Vol] 6.32 10*3/uL Normal 4.00-10.60 [facility] Comment on above: Order Comment: No: D o not add to previous draw Performed By: #### 5 0608 #### [facility] [address] [place] [address], [facility] Erythrocyte distribution width (RBC) [Ratio] 13.0 % Normal 11.5-15.0 [facility] Comment on above: Order Comment: No: D o not add to previous draw Performed By: #### 5 0608 #### [facility] [address] [place] [address], [facility] Hematocrit (Bld) [Volume fraction] 40.2 % Normal 36.0-45.0 [facility] Comment on above: Order Comment: No: D o not add to previous draw Performed By: #### 5 0608 #### [facility] [address] [place] [address], [facility] Hemoglobin (Bld) [Mass/Vol] 13.7 g/dL Normal 12.0-15.0 [facility] Comment on above: Order Comment: No: D o not add to previous draw Performed By: #### 5 0608 #### [facility] [address] [place] [id number], [facility] MCH (RBC) [Entitic mass] 31.4 pg Normal 27.0-33.0 [facility] Comment on above: Order Comment: No: D o not add to previous draw Performed By: #### 5 0608 #### [facility] [address] [place] [address], [facility] MCHC (RBC) [Mass/Vol] 34.1 g/dL Normal 32.0-35.0 [facility] Comment on above: Order Comment: No: D o not add to previous draw Performed By: #### 5 0608 #### [facility] [address] [place] [address], [facility] MCV (RBC) [Entitic vol] 92.0 fL Normal 82.0-98.0 [facility] Comment on above: Order Comment: No: D o not add to previous draw Performed By: #### 5 0608 #### [facility] [address] [facility]. [address] Nucleated RBC/100 WBC (Bld) [Ratio] 0 % Normal 0-0 [facility] Comment on above: Order Comment: No: D o not add to previous draw Performed By: #### 5 0608 #### [facility] [address] [place] [address], [facility] PLAT CNT 209 10*3/uL Normal 150-400 [facility] Comment on above: Order Comment: No: D o not add to previous draw Performed By: #### 5 0608 #### [facility] [address] RBC (Bld) [#/Vol] 4.37 10*6/uL Normal 3.80-5.00 [facility] Comment on above: Order Comment: No: D o not add to previous draw Performed By: #### 5 0608 #### [facility] [address] [place] [address], [facility] WBC (Bld) [#/Vol] 5.97 10*3/uL Normal 4.00-10.60 [facility] Comment on above: Order Comment: No: D o not add to previous draw Performed By: #### 5 0608 #### [facility] [address] TROPONIN-Ion 04-05-2020 Troponin I.cardiac [Mass/Vol] 0.07 ng/mL High 0.00-0.04 [facility] Comment on above: Order Comment: This order is a replacement of the rejected order with accession number [id number]. Result Comment: REFE RENCE RANGES: 0.00 - 0.04 ng/ml NORMAL 0.05 - 0.50 ng/ml INDETERMINATE > 0.50 ng/ml CONSISTENT WITH AN M.I. Performed By: #### 3 5200 #### [facility] [address] [facility]. [address] Cardiovascular Lab Reporton 04-04-2020 Cardiovascular Lab Report [facility] Patient Name: Son Hubbard [facility] S MR #: [id number] Department of Physician: Clinton Ankit Jerri Doran M.D. Division of Service Date: 04/04/2020 Cardiology Birthdate: 1945 Adult Cardiovascular Room #: [facility] [address] [facility]. [place], [place] [address] Cardiovascular Laboratory Report INDICATION: Son Hubbard is a 75-year-old woman, who was recently evaluated in Cardiology Clinic after a recent admission to the [facility] with acute onset shortness of breath and finding on echocardiogram of possible severe mitral regurgitation. She continued to be symptomatic and was referred for further investigation of her recent onset symptoms by a transesophageal echocardiography that showed evidence of hfhf-wr-vpsbzrjo mitral regurgitation. She was then referred for [...] consent. She was brought to the labor relations director in a fasting state. The right neck area was prepped and draped in the usual fashion. Using micropuncture technique and ultrasound guidance, the right internal jugular vein was accessed. A 6-Montenegrin x 11 cm sheath was placed. A 6-Montenegrin Mendez catheter was used for right catheterization with measurement of pressures and calculation of cardiac output using the estimated Elizabeth method. Mendez catheter was removed. Modified Dom's test was favorable on the right. Access in the right radial artery was obtained using micropuncture technique. A 6-Montenegrin x 11 cm Hydrophilic sheath was advanced. Verapamil was given through the sheath and heparin was administered intravenously. Bilateral selective coronary angiography was then performed using 5-Montenegrin JR5 and 5-Montenegrin multipurpose catheters for engagement of the right coronary artery and a 5-Montenegrin JL3.5 diagnostic catheter for engagement of the left coronary artery. Catheters were removed. Additional heparin was given as needed and therapeutic ACT confirmed during the rest of the procedure. A 6-Montenegrin XB3.0 guiding catheter was advanced and used [...] 11 atmospheres and post dilated using NC [employer] [place] 3.25 x 12 mm noncompliant balloon inflated [...] 2- (more content not included)... Normal [facility] *SARS-CoV-2 COVID-19on 03-31 SARS-CoV-2 (COVID-19) RNA ERICK+probe Ql (Unsp spec) Not detected Normal Not Detected [facility] Comment on above: Order Comment: The A ptima SARS-CoV-2 assay is a nucleic acid amplification test intended for the qualitative detection of RNA from SARS-CoV-2 isolated and purified from nasopharyngeal (PHARMACEUTICAL PROCESS ENGINEER),oropharyngeal (OP), nasal swab, sputum, and bronchoalveolar lavage (BAL) specimens from patients with signs and symptoms of infection who are suspected of COVID-19. Results are for the identification of SARS-CoV-2 RNA. The SARS-CoV-2 RNA is generally detectable during the acute phase of infection. The Aptima SARS-CoV-2 Assay on the FaceRig and [place] Fusion system is intended for use by laboratory personnel specifically instructed and trained in the operation of the [place] and [employer] Fusion system. The Aptima SARS-CoV-2 assay is [...] information. Performed By: #### 3 1792 #### [facility] [address] [facility] [place] [address], [facility] CONSULTATIONon 03-02-[address] [address] CONSULTATION PATIENT NAME: SON HUBBARD : 1945 MED REC NO: [id number] ROOM: R254 ACCOUNT NO: [id number] ADMIT DATE: 02/24/2019 PROVIDER: Francis Holguin MD [...] and S2 are normal. No murmurs appreciated. 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 Eye [...] the patient. FRANCIS HOLGUIN MD [id number] Doc#: [id number] CC: Normal [facility] Homocysteineon 03-02-2019 Homocysteine 14.5 umol/L Normal 0.0-15.0 [facility] Comment on above: Performed By: #### P T #### [facility] [address] [place] [address] TSH w/out Reflexon 9 TSH Qn 3.890 uIU/mL Critically high 0.440-3.86 [facility] Comment on above: Performed By: #### P T #### [facility] [address] [place] [address] Vitamin B12 and Folateon Cobalamin (Vitamin B12) [Mass/Vol] 537 pg/mL Normal 232-1245 [facility] Comment on above: Performed By: #### P T #### [facility] [address] [address] Folate 11.6 ng/mL Normal 7.3-26.1 [facility] Comment on above: Result Comment: As o f 16, the methodology has changed. Results from this methodology should not be compared with results from previous methodology. Performed By: #### P T #### [facility] [address] [address] Urinalysis, reflex to cultur erik 02-28-2019 Bilirubin Ql (U) Negative Normal Negative [facility] Comment on above: Performed By: #### B MP #### [facility] [address] [place] [place] [address] Clarity (U) Clear Normal Clear [facility] Comment on above: Performed By: #### B MP #### [facility] [address] [place] [address] Color (U) Yellow Normal Straw/Logan [facility] Comment on above: Performed By: #### B MP #### [facility] [address] [place] [address] Glucose Ql (U) Negative Normal Negative [facility] Comment on above: Performed By: #### B MP #### [facility] [address] [place] [address] Hemoglobin Ql (U) Negative Normal Negative [facility] Comment on above: Performed By: #### B MP #### [facility] [address] [place] [address] Ketones Ql (U) Negative Normal Negative [facility] Comment on above: Performed By: #### B MP #### [facility] [address] [place] [address] Leukocyte esterase Test strip Ql (U) Negative Normal Negative [facility] Comment on above: Performed By: #### B MP #### [facility] [address] [place] [address] Nitrite Ql (U) Negative Normal Negative [facility] Comment on above: Performed By: #### B MP #### [facility] [address] [place] [address] pH (U) 7.0 [pH] Normal 5.0-9.0 [facility] Comment on above: Performed By: #### B MP #### [facility] [address] [place] [address] Protein Ql (U) Negative Normal Negative [facility] Comment on above: Performed By: #### B MP #### [facility] [address] [place] [address] Specific gravity (U) [Rel density] 1.007 Normal 1.005-1.03 [facility] Comment on above: Performed By: #### B MP #### [facility] [address] [place] [address] Urine Reflexed to Culture Not Indicated Normal [facility] Comment on above: Performed By: #### B MP #### [facility] [address] [place] [address] Urobilinogen Qn (U) 0.2 {Tyrel'U}/dL Normal < 2.0 [facility] Comment on above: Performed By: #### B MP #### [facility] [address] [place] [address] CBC With Platelet No Differe ntialon 02-25-2019 Erythrocyte distribution width (RBC) [Ratio] 13.5 % Normal 11.5-14.5 [facility] Comment on above: Performed By: #### B MP #### [facility] [address] [place] [address] Hematocrit (Bld) [Volume fraction] 33.3 % Low 37.0-47.0 [facility] Comment on above: Performed By: #### B MP #### [facility] [address] [place] [address] Hemoglobin (Bld) [Mass/Vol] 11.7 g/dL Low 12.0-16.0 [facility] Comment on above: Performed By: #### B MP #### [facility] [address] [place] [address] MCH (RBC) [Entitic mass] 33.0 pg Critically high 27.0-31.3 [facility] Comment on above: Performed By: #### B MP #### [facility] [address] [place] [address] MCHC (RBC) [Mass/Vol] 35.1 % Normal 33.0-37.0 [facility] Comment on above: Performed By: #### B MP #### [facility] [address] [place] [address] MCV (RBC) [Entitic vol] 94.1 fL Normal 82.0-100.0 [facility] Comment on above: Performed By: #### B MP #### [facility] [address] [place] [address] Platelets (Bld) [#/Vol] 180 10*3/uL Normal 130-400 [facility] Comment on above: Performed By: #### B MP #### [facility] [address] [place] [address] RBC (Bld) [#/Vol] 3.54 10*6/uL Low 4.20-5.40 [facility] Comment on above: Performed By: #### B MP #### [facility] [address] [place] [address] WBC (Bld) [#/Vol] 12.1 10*3/uL Critically high 4.8-10.8 [facility] Comment on above: Performed By: #### B MP #### [facility] [address] [place] [address] Basic Metabolic Panel Reflex Mgon 02-24-2019 Anion gap [Moles/Vol] 13 mmol/L Normal 9-15 [facility] Comment on above: Performed By: #### B MP #### [facility] [address] [place] [address] Calcium [Mass/Vol] 8.8 mg/dL Normal 8.5-9.9 [facility] Comment on above: Performed By: #### B MP #### [facility] [address] [place] [address] Chloride [Moles/Vol] 100 mmol/L Normal 95-107 [facility] Comment on above: Performed By: #### B MP #### [facility] [address] [place] [address] CO2 [Moles/Vol] 24 mmol/L Normal 20-31 [facility] Comment on above: Performed By: #### B MP #### [facility] [address] [place] [address] Creatinine [Mass/Vol] 0.96 mg/dL Critically high 0.50-0.90 [facility] Comment on above: Performed By: #### B MP #### [facility] [address] [place] [address] GFR/1.73 sq M predicted among blacks MDRD (S/P/Bld) [Vol rate/Area] mL/min/{1.73_m2} Normal >60 [facility] Comment on above: Result Comment: >60 mL/min/1.73m2 EGFR, calc. for ages 18 and older using the MDRD formula (not corrected for weight), is valid for stable renal function. Performed By: #### B MP #### [facility] [address] [place] [address] GFR/1.73 sq M.predicted MDRD (S/P/Bld) [Vol rate/Area] 57.0 mL/min/{1.73_m2} Low >60 [facility] Comment on above: Result Comment: >60 mL/min/1.73m2 EGFR, calc. for ages 18 and older using the MDRD formula (not corrected for weight), is valid for stable renal function. Performed By: #### B MP #### [facility] [address] [place] [address] Glucose [Mass/Vol] 146 mg/dL Critically high 70-99 [facility] Comment on above: Performed By: #### B MP #### [facility] [address] [place] [address] Potassium reflex Mg 5.4 mEq/L Critically high 3.4-4.9 [facility] Comment on above: Performed By: #### B MP #### [facility] [address] [place] [address] Sodium [Moles/Vol] 137 mmol/L Normal 135-144 [facility] Comment on above: Performed By: #### B MP #### [facility] [address] [place] [address] Urea nitrogen [Mass/Vol] 18 mg/dL Normal 8-23 [facility] Comment on above: Performed By: #### B MP #### [facility] [address] [place] [address] CBC With Platelet and Differ entialon 02-24-2019 Basophils (Bld) [#/Vol] 0.0 10*3/uL Normal 0.0-0.2 [facility] Comment on above: Performed By: #### C BCWD #### [facility] [address] [place] [address] Basophils/100 WBC (Bld) 0.1 % Normal [facility] Comment on above: Performed By: #### C BCWD #### [facility] [address] [place] [address] Eosinophils (Bld) [#/Vol] 0.0 10*3/uL Normal 0.0-0.7 [facility] Comment on above: Performed By: #### C BCWD #### [facility] [address] [place] [address] Eosinophils/100 WBC (Bld) 0.0 % Normal [facility] Comment on above: Performed By: #### C BCWD #### [facility] [address] [place] [address] Erythrocyte distribution width (RBC) [Ratio] 13.4 % Normal 11.5-14.5 [facility] Comment on above: Performed By: #### C BCWD #### [facility] [address] [place] [address] Hematocrit (Bld) [Volume fraction] 34.6 % Low 37.0-47.0 [facility] Comment on above: Performed By: #### C BCWD #### [facility] [address] [place] [address] Hemoglobin (Bld) [Mass/Vol] 12.0 g/dL Normal 12.0-16.0 [facility] Comment on above: Performed By: #### C BCWD #### [facility] [address] [place] [address] Lymphocytes (Bld) [#/Vol] 0.9 10*3/uL Low 1.0-4.8 [facility] Comment on above: Performed By: #### C BCWD #### [facility] [address] [place] [address] Lymphocytes/100 WBC (Bld) 6.5 % Normal [facility] Comment on above: Performed By: #### C BCWD #### [facility] [address] [place] [address] MCH (RBC) [Entitic mass] 32.3 pg Critically high 27.0-31.3 [facility] Comment on above: Performed By: #### C BCWD #### [facility] [address] [place] [address] MCHC (RBC) [Mass/Vol] 34.7 % Normal 33.0-37.0 [facility] Comment on above: Performed By: #### C BCWD #### [facility] [address] [place] [address] MCV (RBC) [Entitic vol] 93.2 fL Normal 82.0-100.0 [facility] Comment on above: Performed By: #### C BCWD #### [facility] [address] [place] [address] Monocytes (Bld) [#/Vol] 1.4 10*3/uL Critically high 0.2-0.8 [facility] Comment on above: Performed By: #### C BCWD #### [facility] [address] [place] [address] Monocytes/100 WBC (Bld) 10.2 % Normal [facility] Comment on above: Performed By: #### C BCWD #### [facility] [address] [place] [address] Neutrophils (Bld) [#/Vol] 11.3 10*3/uL Critically high 1.4-6.5 [facility] Comment on above: Performed By: #### C BCWD #### [facility] [address] [place] [address] Neutrophils/100 WBC (Bld) 83.2 % Normal [facility] Comment on above: Performed By: #### C BCWD #### [facility] [address] [place] [address] Platelets (Bld) [#/Vol] 208 10*3/uL Normal 130-400 [facility] Comment on above: Performed By: #### C BCWD #### [facility] [address] [place] [address] RBC (Bld) [#/Vol] 3.71 10*6/uL Low 4.20-5.40 [facility] Comment on above: Performed By: #### C BCWD #### [facility] [address] [place] [address] WBC (Bld) [#/Vol] 13.7 10*3/uL Critically high 4.8-10.8 [facility] Comment on above: Performed By: #### C BCWD #### [facility] [address] [place] [address] Culture, Urineon 02-24-2019 Culture, Urine ORDERED BY: CHRISTIE REED SOURCE: Urine Clean Catch COLLECTED: 02/24/19 17:31 ANTIBIOTICS AT ELISEO.: RECEIVED : 02/24/19 17:31 Culture, Urine FINAL 02/26/19 08:22 No growth 24 hours Normal [facility] Comment on above: Performed By: #### B MP #### [facility] [address] [place] [address] POCT Glucoseon 02-24-2019 Glucose [Mass/Vol] 133 mg/dL Critically high 60-115 M [facility] Comment on above: Performed By: #### B MP #### [facility] [address] [place] [address] POC Performed on ACCU-CHEK Normal [facility] Comment on above: Performed By: #### B MP #### [facility] [address] [place] [address] Urinalysis, reflex to cultur erik 02-24-2019 Bilirubin Ql (U) Negative Normal Negative [facility] Comment on above: Performed By: #### B MP #### [facility] [address] [place] [address] Clarity (U) Clear Normal Clear [facility] Comment on above: Performed By: #### B MP #### [facility] [address] [place] [address] Color (U) Yellow Normal Straw/Logan [facility] Comment on above: Performed By: #### B MP #### [facility] [address] [place] [address] Glucose Ql (U) Negative Normal Negative [facility] Comment on above: Performed By: #### B MP #### [facility] [address] [place] [address] Hemoglobin Ql (U) SMALL Abnormal Negative [facility] Comment on above: Performed By: #### B MP #### [facility] [address] [place] [address] Ketones Ql (U) Negative Normal Negative [facility] Comment on above: Performed By: #### B MP #### [facility] [address] [place] [address] Leukocyte esterase Test strip Ql (U) TRACE Abnormal Negative [facility] Comment on above: Performed By: #### B MP #### [facility] [address] [place] [address] Nitrite Ql (U) Negative Normal Negative [facility] Comment on above: Performed By: #### B MP #### [facility] [address] [place] [address] pH (U) 6.0 [pH] Normal 5.0-9.0 [facility] Comment on above: Performed By: #### B MP #### [facility] [address] [place] [address] Protein Ql (U) Negative Normal Negative [facility] Comment on above: Performed By: #### B MP #### [facility] [address] [place] [address] Specific gravity (U) [Rel density] 1.010 Normal 1.005-1.03 [facility] Comment on above: Performed By: #### B MP #### [facility] [address] [place] [address] Urine Reflexed to Culture YES Normal [facility] Comment on above: Performed By: #### B MP #### [facility] [address] [place] [address] Urobilinogen Qn (U) 0.2 {Tyrel'U}/dL Normal < 2.0 [facility] Comment on above: Performed By: #### B MP #### [facility] [address] [place] [address] Urine Microscopicon 02-25-20 19 Bacteria LM.HPF (Urine sed) [#/Area] Negative Normal [facility] Comment on above: Performed By: #### B MP #### [facility] [address] [place] [address] RBC (U) [#/Vol] 0-2 Normal 0-5 [facility] Comment on above: Performed By: #### B MP #### [facility] [address] [place] [address] Urine Epithelial Cells Auto 3-5 Normal 0-5 [facility] Comment on above: Performed By: #### B MP #### [facility] [address] [place] [address] Urine Hyaline Casts Auto 0-1 Normal 0-5 [facility] Comment on above: Performed By: #### B MP #### [facility] [address] [place] [address] Urine WBC Auto 6-10 Abnormal 0-5 [facility] Comment on above: Performed By: #### B MP #### [facility] [address] [place] [address] XR LUMBAR SPINE (2-3 VIEWS)o n 02-24-2019 [...] Ramón Bonds MD 02/24/19 Final result Normal [facility] Basic Metabolic Panel Reflex Mgon 02-23-2019 Anion gap [Moles/Vol] 14 mmol/L Normal 9-15 [facility] Comment on above: Performed By: #### B MPX #### [facility] [address] [place] [address] Calcium [Mass/Vol] 9.1 mg/dL Normal 8.5-9.9 [facility] Comment on above: Performed By: #### B MPX #### [facility] [address] [place] [address] Chloride [Moles/Vol] 106 mmol/L Normal 95-107 [facility] Comment on above: Performed By: #### B MPX #### [facility] [address] [place] [address] CO2 [Moles/Vol] 20 mmol/L Normal 20-31 [facility] Comment on above: Performed By: #### B MPX #### [facility] [address] [place] [address] Creatinine [Mass/Vol] 0.96 mg/dL Critically high 0.50-0.90 [facility] Comment on above: Performed By: #### B MPX #### [facility] [address] [place] [address] GFR/1.73 sq M predicted among blacks MDRD (S/P/Bld) [Vol rate/Area] mL/min/{1.73_m2} Normal >60 [facility] Comment on above: Result Comment: >60 mL/min/1.73m2 EGFR, calc. for ages 18 and older using the MDRD formula (not corrected for weight), is valid for stable renal function. Performed By: #### B MPX #### [facility] [address] [place] [address] GFR/1.73 sq M.predicted MDRD (S/P/Bld) [Vol rate/Area] 57.0 mL/min/{1.73_m2} Low >60 [facility] Comment on above: Result Comment: >60 mL/min/1.73m2 EGFR, calc. for ages 18 and older using the MDRD formula (not corrected for weight), is valid for stable renal function. Performed By: #### B MPX #### [facility] [address] [place] [address] Glucose [Mass/Vol] 139 mg/dL Critically high 70-99 M [facility] Comment on above: Performed By: #### B MPX #### [facility] [address] [place] [address] Potassium reflex Mg 4.6 mEq/L Normal 3.4-4.9 [facility] Comment on above: Performed By: #### B MPX #### [facility] [address] [place] [address] Sodium [Moles/Vol] 140 mmol/L Normal 135-144 [facility] Comment on above: Performed By: #### B MPX #### [facility] [address] [place] [address] Urea nitrogen [Mass/Vol] 20 mg/dL Normal 8-23 [facility] Comment on above: Performed By: #### B MPX #### [facility] [address] [place] [address] CBC With Platelet No Differe ntialon 02-23-2019 Erythrocyte distribution width (RBC) [Ratio] 13.4 % Normal 11.5-14.5 [facility] Comment on above: Performed By: #### C BCND #### [facility] [address] [place] [address] Hematocrit (Bld) [Volume fraction] 38.8 % Normal 37.0-47.0 [facility] Comment on above: Performed By: #### C BCND #### [facility] [address] [place] [address] Hemoglobin (Bld) [Mass/Vol] 13.6 g/dL Normal 12.0-16.0 [facility] Comment on above: Performed By: #### C BCND #### [facility] [address] [place] [address] MCH (RBC) [Entitic mass] 32.2 pg Critically high 27.0-31.3 [facility] Comment on above: Performed By: #### C BCND #### [facility] [address] [place] [address] MCHC (RBC) [Mass/Vol] 35.1 % Normal 33.0-37.0 [facility] Comment on above: Performed By: #### C BCND #### [facility] [address] [place] [address] MCV (RBC) [Entitic vol] 91.6 fL Normal 82.0-100.0 [facility] Comment on above: Performed By: #### C BCND #### [facility] [address] [place] [address] Platelets (Bld) [#/Vol] 212 10*3/uL Normal 130-400 [facility] Comment on above: Performed By: #### C BCND #### [facility] [address] [place] [address] RBC (Bld) [#/Vol] 4.24 10*6/uL Normal 4.20-5.40 [facility] Comment on above: Performed By: #### C BCND #### [facility] [address] [place] [address] WBC (Bld) [#/Vol] 8.3 10*3/uL Normal 4.8-10.8 [facility] Comment on above: Performed By: #### C BCND #### [facility] [address] [place] [address] FLUORO FOR SURGICAL PROCEDUR ESon 02-23-2019 FLUORO [...] Interpreted by: Nona Yates MD Signed by: oNna Yates MD 02/23/19 Final result Normal [facility] Surgical Specimenon 02-24-20 Surgical Specimen [facility] [address] [place] [id number] FINAL SURGICAL PATHOLOGY REPORT Patient Name: SON HUBBARD Accession No: [id number] Age Sex: 1945 Location: [id number] Account No: [id number] Collected: 02/23/2019 Med Rec No: [id number] Received: 02/24/2019 Attend Phys: FAN RAMIREZ Completed: [...] 3.5 x 3.0 x 0.5 cm. 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 ALIFA/SCDAN CPT: 25651 X1 60242 X1 CHIDI LUNA M.D. 02/26/2019 Electronically signed out by Page 1 of 1 [facility] Comment on above: Performed By: #### B MP #### [facility] [address] [place] [address] Basic Metabolic Panelon 02-08 Anion gap [Moles/Vol] 13 mmol/L Normal 9-15 [facility] Comment on above: Performed By: #### B MP #### [facility] [address] [place] [address] Calcium [Mass/Vol] 9.7 mg/dL Normal 8.5-9.9 [facility] Comment on above: Performed By: #### B MP #### [facility] [address] [place] [address] Chloride [Moles/Vol] 105 mmol/L Normal 95-107 [facility] Comment on above: Performed By: #### B MP #### [facility] [address] [place] [address] CO2 [Moles/Vol] 24 mmol/L Normal 20-31 [facility] Comment on above: Performed By: #### B MP #### [facility] [address] [place] [address] Creatinine [Mass/Vol] 1.00 mg/dL Critically high 0.50-0.90 [facility] Comment on above: Performed By: #### B MP #### [facility] [address] [place] [address] GFR/1.73 sq M predicted among blacks MDRD (S/P/Bld) [Vol rate/Area] mL/min/{1.73_m2} Normal >60 [facility] Comment on above: Result Comment: >60 mL/min/1.73m2 EGFR, calc. for ages 18 and older using the MDRD formula (not corrected for weight), is valid for stable renal function. Performed By: #### B MP #### [facility] [address] [place] [address] GFR/1.73 sq M.predicted MDRD (S/P/Bld) [Vol rate/Area] 54.3 mL/min/{1.73_m2} Low >60 [facility] Comment on above: Result Comment: >60 mL/min/1.73m2 EGFR, calc. for ages 18 and older using the MDRD formula (not corrected for weight), is valid for stable renal function. Performed By: #### B MP #### [facility] [address] [place] [address] Glucose [Mass/Vol] 93 mg/dL Normal 70-99 [facility] Comment on above: Performed By: #### B MP #### [facility] [address] [place] [address] Potassium [Moles/Vol] 4.1 mmol/L Normal 3.4-4.9 [facility] Comment on above: Performed By: #### B MP #### [facility] [address] [place] [address] Sodium [Moles/Vol] 142 mmol/L Normal 135-144 [facility] Comment on above: Performed By: #### B MP #### [facility] [address] [place] [address] Urea nitrogen [Mass/Vol] 20 mg/dL Normal 8-23 [facility] Comment on above: Performed By: #### B MP #### [facility] [address] [place] [address] CBC With Platelet No Differe ntialon 02-22-2019 Erythrocyte distribution width (RBC) [Ratio] 13.2 % Normal 11.5-14.5 [facility] Comment on above: Performed By: #### C BCND #### [facility] [address] [place] [address] Hematocrit (Bld) [Volume fraction] 39.9 % Normal 37.0-47.0 [facility] Comment on above: Performed By: #### C BCND #### [facility] [address] [place] [address] Hemoglobin (Bld) [Mass/Vol] 14.1 g/dL Normal 12.0-16.0 [facility] Comment on above: Performed By: #### C BCND #### [facility] [address] [place] [address] MCH (RBC) [Entitic mass] 32.5 pg Critically high 27.0-31.3 [facility] Comment on above: Performed By: #### C BCND #### [facility] [address] [place] [address] MCHC (RBC) [Mass/Vol] 35.3 % Normal 33.0-37.0 [facility] Comment on above: Performed By: #### C BCND #### [facility] [address] [place] [address] MCV (RBC) [Entitic vol] 92.2 fL Normal 82.0-100.0 [facility] Comment on above: Performed By: #### C BCND #### [facility] [address] [place] [address] Platelets (Bld) [#/Vol] 206 10*3/uL Normal 130-400 [facility] Comment on above: Performed By: #### C BCND #### [facility] [address] [place] [address] RBC (Bld) [#/Vol] 4.33 10*6/uL Normal 4.20-5.40 [facility] Comment on above: Performed By: #### C BCND #### [facility] [address] [place] [address] WBC (Bld) [#/Vol] 5.9 10*3/uL Normal 4.8-10.8 [facility] Comment on above: Performed By: #### C BCND #### [facility] [address] [place] [address] Partial Thromboplastin Timeo n 02-22-2019 aPTT Coag (Bld) [Time] 36.9 s Critically high 24.4-36.8 [facility] Comment on above: Result Comment: Effe ctive 02/18/2019: Please note methodology and/or reference ranges have changed. Performed By: #### P TT #### [facility] [address] [place] [address] Prothrombin Timeon 9 INR Coag (PPP) [Relative time] 0.9 {INR} Normal [facility] Comment on above: Result Comment: Warf esther Therapy INR Therapeutic: 2.0-3.0 With Mechanical Valve: >2.5 Low-intensity Therapeutic Range: 1.5-2.0 Mod-intensity Therapeutic Range: 2.0-3.0 High-intensity Therapeutic Range: 2.5-3.5 HIgh-intensity Therapeutic Range: 3.0-4.0 Common Critical/Alarm Value: 5.0 Common Upper Limit Reported: 10.0 Effective 02/18/2019: Please note methodology and/or reference ranges have changed. Performed By: #### P T #### [facility] [address] [place] [address] PT Coag (PPP) [Time] 12.6 s Normal 12.3-14.9 [facility] Comment on above: Result Comment: Effjoel ctive 02/18/19 Please note methodology and/or reference ranges have changed. Performed By: #### P T #### [facility] [address] [place] [address] Type and Screen Capture 3 sc rn cellon 02-22-2019 Type and Screen Capture 3 scrn cell PATIENT: INEZ Wilson LOC: [facility] BILL# : [id number] : 1945 SEX: F ORDERED BY: RSISA Hale ORDERED : 02/22/2019 07:32 COLLECTED: 02/22/2019 09:40 ORDER : [id number] RECEIVED : 02/22/2019 09:40 Confirmation type needs to be drawn. --------- TEST NAME RESULT UNITS RANGES ABN FL ST ABORH Capture O NEG F Antibody 3 Cell Scrn Captu NEG F -------- Normal [facility] Comment on above: Performed By: #### T S3C #### [facility] [address] [place] [address] XR SPINE ENTIRE (2-3 VIEWS)o n 02-22-2019 [...] Hope Rapp MD 02/23/19 Final result Normal [facility] No Panel Information [facility] Encounters Encounter Date Encounter Type Care Provider Facility Start: 09-16-2023 Orders Only Shravan rodríguez MD Work Phone: Cardiology Comment on above: Hypertension, unspec ified type (Primary Dx); Coronary artery disease involving [place] coronary artery of [place] heart, unspecified whether angina present; Hyperlipidemia, unspecified hyperlipidemia type Start: 09-03-2023 End: 09-03-2023 ambulatory [facility] Start: 08-06-2023 End: 08-07-2023 ambulatory [facility] Start: 07-08-2023 End: 07-09-2023 ambulatory [facility] Start: 06-11-2023 End: 06-11-2023 ambulatory Referral Self Facility:[facility] Start: 06-11-2023 End: 06-11-2023 ambulatory MD Pat Newell Work Phone: [facility] Work Phone: Start: 06-11-2023 End: 06-11-2023 Patient encounter procedure MD Pat Newell Work Phone: [facility] Work Phone: Start: 03-28-2023 End: 03-28-2023 [facility] Start: 11-12-2022 End: 11-13-2022 ambulatory MADELYN DICKSON Facility:[facility] Start: 10-18-2022 End: 10-18-2022 ambulatory PAT NEWELL Facility:[facility] Start: 10-10-2022 End: 10-10-2022 ambulatory PAT NEWELL Facility:[facility] Start: 10-10-2022 End: 10-10-2022 Patient encounter procedure [...] 06-10-2022 ambulatory MD Pat Newell Work Phone: [facility] Work Phone: Start: 06-10-2022 End: 06-10-2022 Patient encounter procedure MD Pat Newell Work Phone: [facility] Start: 05-15-2022 End: 05-15-2022 ambulatory MYLENE ALMEIDA Facility:[facility] Start: 05-02-2022 End: 05-02-2022 ambulatory MYLENE ALMEIDA Facility:[facility] Start: 05-02-2022 End: 05-02-2022 Patient encounter procedure Mylene Almeida MD Work Phone: Ophthalmology Comment on above: S/P cataract extract ion and insertion of intraocular lens, left (Primary Dx) Start: 05-01-2022 End: 05-02-2022 ambulatory NAILA Marlin CEDILLO Facility:[facility] Start: 05-01-2022 End: 05-01-2022 Patient encounter procedure Naila Cedillo OD Work Phone: Ophthalmology Comment on above: Superficial punctate keratitis of left eye (Primary Dx); Pseudophakia Start: 05-01-2022 End: 05-01-2022 ambulatory MYLENE ALMEIDA Facility:[facility] Start: 04-24-2022 End: 04-24-2022 ambulatory MYLENE ALMEIDA Facility:[facility] Start: 04-24-2022 Encounter for other preprocedural examination MYLENE ALMEIDA [facility] Start: 04-24-2022 End: 04-24-2022 Patient encounter [...] Start: 03-07-2022 End: 03-07-2022 ambulatory PAT NEWELL Facility:[facility] Start: 01-11-2022 Telephone encounter Mylene henderson MD Work Phone: Ophthalmology Comment on above: Appointment Start: 05-11-2020 End: 05-12-2020 ambulatory PAT NEWELL Facility:[facility] Start: 04-04-2020 End: 04-05-2020 ambulatory PAT NEWELL Facility:[facility] Start: 02-24-2019 End: 03-05-2019 Evaluation and management of inpatient CHRISTIE REED [facility] Start: 02-23-2019 End: 02-24-2019 Evaluation and management of inpatient FAN RAMIREZ [facility] Start: 02-23-2019 End: 02-26-2019 Patient encounter procedure FAN RAMIREZ [facility] Start: 02-22-2019 End: 02-24-2019 Patient encounter procedure FAN RAMIREZ [facility] Start: 02-22-2019 End: 02-27-2019 Patient encounter procedure FAN Santana [facility] Procedures Date Procedure Procedure [...] INCENTIVE SPIROMETRY RT FAN ASHLEY Start: 02-25-2019 KAIAKO KURA TUARUA EVAL AND TREAT FAN Y OO Start: [...] 08-11-2023 Advance Directive Discussion Advance Directive Discussion [facility] Start: 08-11-2023 Depression Assessment Depression Ass essment [facility] Start: 04-11-2023 Covid-19 Vaccine () Covid-19 Vaccine () [facility] Start: 04-11-2023 Influenza vaccination Influenza Vacc ine (#1) [facility] Start: 03-07-2023 End: 08-29-2023 IOL BIOMETRY W/ IOL CALC OU (BOTH EYES) IOL BIOMETRY W/ IOL CALC OU (BOTH EYES) OPHT Imaging Routine Combined forms of age-related cataract of both eyes Expected: 03/07/2023, Expires: 08/29/2023 [facility] Work Phone: Comment on above: Expected: 03/07/2023 , Expires: 08/29/2023 Start: 08-11-2022 ADVANCE DIRECTIVE DISCUSSION ADVANCE DIRECTIVE DISCUSSION [facility] Start: 07-09-2022 COVID-19 VACCINE (4 - Booster for Pfizer series) COVID-19 VACCINE (4 - Booster for Pfizer series) [facility] Start: 05-03-2022 COVID-19 VACCINE (4 - Booster for Pfizer series) COVID-19 VACCINE (4 - Booster for Pfizer series) [facility] Start: 04-11-2022 Influenza vaccination C [facility] Start: 02-24-2022 Diabetes Screening Diabetes Screenin g [facility] Start: 08-11-2021 ADVANCE DIRECTIVE DISCUSSION ADVANCE DIRECTIVE DISCUSSION [facility] Start: 03-01-2021 COVID-19 VACCINE (3 - Booster for Pfizer series) COVID-19 VACCINE (3 - Booster for Pfizer series) [facility] Start: 06-20-2019 DIABETES SCREEN DIABETES SCREEN [facility] Start: 05-28-2018 Pneumococcal Vaccine : 65+ (2 of 2 - PCV) Pneumococcal Vaccine: 65+ (2 of 2 - PCV) [facility] Start: 06-14-2017 Adult depression screening assessment DEPRESSION SCREENING [facility] Start: 05-30-2013 PNEUMOCOCCAL: 65+ (2 - PCV) PNEUMOCOCCAL: 65+ (2 - PCV) [facility] Start: 2011 BONE DENSITY BONE DENSITY [facility] Start: 2011 Screening for osteoporosis Bone Density Screening [facility] Start: 2006 RSV Vaccine (1 - 1-d ose 60+ series) RSV Vaccine (1 - 1-dose 60+ series) [facility] Start: 01-22-1996 SHINGRIX VACCINE (1 of 2) SHINGRIX VACCINE (1 of 2) [facility] Start: 1991 COLOGUARD (FIT-DNA) COLOGUARD (FIT-D NA) [facility] Start: 1991 Colonoscopy COLONOSCOPY [facility] Start: 1991 COLORECTAL CANCER SCREENING COLORECTAL CANCER SCREENING [facility] Start: [address] COLONOGRAPHY [facility] Start: 1991 FECAL OCCULT BLOOD FECAL OCCULT BLOO D [facility] Start: 1991 LIPID SCREEN LIPID SCREEN [facility] Start: 1991 SIGMOIDOSCOPY SIGMOIDOSCOPY [facility] Start: 1965 Urine microalbumin profile [facility] Start: 01-22-1964 ANNUAL PCP TEAM [employer] KALA DISEASE VISIT ANNUAL PCP TEAM CHRONIC DISEASE VISIT [facility] Start: 01-22-1964 BP CONTROLLED (<130/80) BP CONTROLLE D (<130/80) [facility] Start: 01-22-1964 Hepatitis B surface antibody level LDL CHOLESTEROL [facility] Start: 01-22-1964 HEPATITIS C SCREENING HEPATITIS C [facility] Start: 01-22-1964 Hepatitis C screening Hepatitis C [facility] Start: 1958 Adult depression screening assessment DEPRESSION SCREENING [facility] Start: 1951 COVID-19 VACCINE (#1) COVID-19 VACCI NE (#1) [facility] CORNEAL TOPOGRAPHY PENTACAM OU (BOTH EYES) CORNEAL TOPOGRAPHY PENTACAM OU (BOTH EYES) OPHT Imaging Routine Combined forms of age-related cataract of both eyes 04/24/2022 12:46 PM EDT [facility] Work Phone: End: 09-16-2024 ECG COMPLETE ECG COMPLETE ECG Routine Hypertension, unspecified type Coronary artery disease involving [place] coronary artery of [place] heart, unspecified whether angina present Hyperlipidemia, unspecified hyperlipidemia type 1 Occurrences starting 09/16/2023 until 09/16/2024 [facility] Work Phone: Comment on above: 1 Occurrences starti ng 09/16/2023 until 09/16/2024 [facility] Immunizations Immunization Date Immunization Notes Care Provider Fa cility 08-27-2022 influenza virus vacc ine, unspecified formulation Shravan Buchanan MD Work Phone: [facility] 05-30-2012 influenza virus vacc ine, unspecified formulation Mylene Wayne MD Work Phone: [facility] 05-30-2012 pneumococcal polysaccharide vaccine, 23 valent Mylene Wayne MD Work Phone: [facility] Payers Date Payer Category Payer Self-pay [id number] 2019 Private Health Insurance [id number] 2019 Private Health Insurance DAJUAN MARTINSA MEDICARE SUPPLEMENT [id number] 2019-Present [phone] [address] [place] [address] Indemnity [id number] 2019 Private Health Insurance CIGKENDRICK MARTINSA MEDICARE SUPPLEMENT [id number] 2019-Present [phone] [address] [place] [address] Indemnity [id number] 2016 Medicare [id number] 2016 Private Health Insurance [id number] 2011 Medicare MEDICARE MEDICAR E A AND B [id number] 2011-Present [phone] [place] [address] Medicare [id number] 2011 Medicare MEDICARE MEDICAR E A AND B [id number] 2011-Present [phone] [place] [address] Medicare [id number] 1959 Medicare [id number] 1959 Private Health Insurance [id number] 1945 Unknown [id number] 1945 Unknown [id number] .182 1945 Unknown [id number] .182 1945 Unknown [id number] .182 1945 Unknown [id number] .182 1945 Unknown [id number] .182 1945 Unknown [id number] .647 1945 Unknown [id number] .647 1945 Unknown [id number] .593 1945 Unknown [id number] [id number] .593 1945 Unknown [id number] .593 1945 Unknown [id number] .593 1945 Unknown [id number] .593 Unknown [id number] .531 Social History Date Type Detail Facility Start: 04-28-2012 End: 04-24-2022 Tobacco smoking status NHIS Ex-smoker [facility] End: 04-28-1990 History of tobacco use Current smoker [facility] End: 04-28-1990 History of tobacco use Cigarette Smoker [facility] Start: 04-28-2012 End: 09-06-2022 Cigarettes smoked current (pack per day) - Reported 0.7 [facility] Start: 06-14-2016 End: 10-18-2022 Alcohol intake Current non-drinker of alcohol (finding) [facility] Start: 1945 Sex Assigned At Not on file [facility] Start: 04-24-2022 Tobacco use and exposure Former smokeless tobacco user [facility] Work Phone: Start: 04-07-2022 End: 05-01-2022 Exposure to SARS-CoV-2 (event) Not sure [facility] Work Phone: Start: 1945 Sex Assigned At Female F [facility] Start: 09-06-2022 End: 10-18-2022 Tobacco use panel [facility] National Score (1-10 0), lower number is lower risk 70 [facility] Medical Equipment Procedure Code Equipment Code Equipment Original Text Equipment Identifier Dates Elan Bn Smpx P Radpq Fd Strl - [id number] Start: 05-27-2012 Sys Bncmnt Prep Kt Plg Brsh - [id number] Start: 05-27-2012 Comment on above: Description: CEMENT RESTRICTOR Stem Fem 50mm 12mm Elan Trthln - [id number] Start: 05-27-2012 Comment on above: Description: cemente d stem Aug Tib 10mm Trthln 3 Rt - [id number] Start: 05-27-2012 Comment on above: Description: AUGMENT Comp Fem 3 Rt Kn Total Stab - [id number] Start: 05-27-2012 Comment on above: Description: TS FEMU R Ins Tib 3 13mm K n X3 Cs Trthln - [id number] Start: 05-27-2012 Comment on above: Description: CS INSE RT Comp Pat 10mm 32mm Asym Trthln - [id number] Start: 05-27-2012 Comment on above: Description: PATELLA Baseplt Tib Trthln 3 Kn Total - [id number] Start: 05-27-2012 Comment on above: Description: UNIVERS AL BASEPLATE Lens Iol 0d +19. 5 Talat Uv Abs - [id number] Start: 05-01-2022 Comment on above: Description: -1.52 Lens Iol 0d +18 Talat Uv Abs - [id number] Start: 05-15-2022 Comment on above: Description: -0.34 Clinical Notes 01-16-2022 to 09-03-2023 Patient Sebastian Almeida V, MD - 10/10/2022 12:24 PM Lenin Murphy OD - 10/10/2022 11:44 AM Mark Almeida V, MD - 05/02/2022 10:44 AM EDT Note Date & Type Note Facility 09-03-2023 Note [place] Cardiology - [facility] Subjective Son Hubbard is a 78 y.o. year old female patient being seen for follow up VIOLA. C/o extreme tiredness . Denies chest pain, SOB, and palpitations. Patient Active Problem List Diagnosis Mitral valve regurgitation Coronary artery disease involving [place] coronary artery of [place] heart without angina pectoris Primary hypertension Nonrheumatic [...] March 2020 she was admitted to the [facility] with worsening shortness of breath. The [...] June 2023 she was admitted to the [facility] with worsening shortness of breath [...] Inhibitors Amlodipine Swell (more content not included)... [facility] 08-06-2023 Note Patient: Son arguelles Procedure Information Date/Time: 08/06/23 1030 Procedure: TRANSESOPHAGEAL ECHO (VIOLA) Location: [facility] Clinical information reviewed: Allergies Meds Physical Exam Airway Mallampati: II TM distance: >3 FB Neck ROM: full Cardiovascular Dental Pulmonary Abdominal Anesthesia Plan ASA 2 other (Moderate sedation) Additional Equipment Requests [facility] 07-08-2023 Note Patient here for [facility] for SOB and chest pain. She was started on isosorbide. She is scheduled for outpatient stress test next week. She denies chest pain. SOB is improving. C/o LE edema which resolves by morning. C/o fatigue. Review of Systems Cardiovascular: Positive for leg swelling. All other systems reviewed and are negative. [facility] 07-08-2023 Note Cardiovascular Medic ine [facility] SUBJECTIVE Chief Complaint Patient presents with Fatigue Congestive Heart Failure Edema Shortness of Breath Son Hubbard is a 78 y.o. female here for hospital follow-up. HPI She started to have feeling of chest congestion around 06/21/2023 (this was similar to how she felt prior to her stent placement) and she presented to [facility]. She states she was having SOB [...] March 2020 she was admitted to the [facility] with worsening shortness of breath. The [...] Mitral valve regurgitation Coronary artery disease involving [place] coronary artery of [place] heart without angina pectoris Primary hypertension Nonrheumatic [...] Rfl: liothyronine ( (more content not included)... [facility] 03-28-2023 Note [place] [facility] - [facility] Subjective Son Hubbard is a 78 y.o. year old female patient being seen for Follow-up (6 MONTH FOLLOW UP ) Patient Active Problem List Diagnosis Mitral valve regurgitation Coronary artery disease involving [place] coronary artery of [place] heart without angina pectoris Primary hypertension Nonrheumatic [...] March 2020 she was admitted to the [facility] with worsening shortness of breath. The [...] tablet, TAKE 1 (more content not included)... [facility] 10-18-2022 Note HNO ID: [id number] Author: Steph Murphy, JOAQUIM Service: ? Author Type: RN LABOR DELIVERY Type: Progress Notes Filed: 10/18/2022 10:33 AM [...] October 18, 2022 10:31 AM [facility] 10-10-2022 Note HNO ID: [id number] Author: Mylene Almeida V, MD Service: ? [...] patient was offered a surgery/procedure at a [facility] facility. The surgeon/proceduralist and patient have [...] others. I have seen and examined Son Hubbadr. I also have reviewed and agree with the assessment and plan as stated above and agree with all of its relevant components. Mylene ALMEIDA MD October 10, 2022 12:24 PM [facility] 10-10-2022 Note HNO ID: [id number] Author: Steph Murphy OD Service: ? Author Type: RN LABOR DELIVERY Type: Progress Notes Filed: 10/10/2022 12:30 PM [...] October 10, 2022 11:45 AM [facility] 10-10-2022 Instructions Mylene Almeida V, MD [...] so we recommend you come with a pile driver operator helper. You will then be scheduled for a follow up in approximately one week. If you notice any of the following symptoms of retinal detachment, please call our office at : - Flashes of light - Increased number of floaters or large floaters - Curtains, veils, or spider web pattern over vision documented in this encounter [facility] 10-10-2022 History of Present illness Narrative [...] patient was offered a surgery/procedure at a [facility] facility. The surgeon/proceduralist and patient have [...] 2022 11:45 AM documented in this encounter [facility] 05-02-2022 Note HNO ID: [id number] Author: Mylene Almeida V, MD Service: ? [...] May 02, 2022 10:44 AM [facility] 05-02-2022 History of Present illness Narrative [...] 2022 10:44 AM documented in this encounter [facility] 05-01-2022 Note HNO ID: [id number] Author: Naila Cedillo, JOAQUIM Service: ? Author Type: RN LABOR DELIVERY Type: Progress Notes Filed: 05/02/2022 7:54 AM [...] May 01, 2022 6:05 PM [facility] 05-01-2022 History of Present illness Narrative [...] 2022 6:05 PM documented in this encounter [facility] 04-24-2022 Note HNO ID: [id number] Author: CHRISTAL Calles Service: ? Author Type: Underliner Type: Progress Notes Filed: 04/24/2022 12:47 PM Note Text: Confirmed Aim: -1.50 OS, Hallwood OD CHRISTAL Calles April 24, 2022 12:46 PM [facility] 04-24-2022 History of Present illness Narrative Confirmed Aim: -1.50 OS, Hallwood OD CHRISTAL Calles April 24, 2022 12:46 PM documented in this encounter [facility] 03-07-2022 Note HNO ID: [id number] Author: Mylene Almeida V, MD Service: ? [...] and surgery - Comanage with Dr Wilson; [facility] POD #1 Cataract Presurgical Documentation Cataract: [...] patient was offered a surgery/procedure at a [facility] facility. The surgeon/proceduralist and patient have [...] March 07, 2022 1:25 PM [facility] 03-07-2022 Note HNO ID: [id number] Author: Marian Arroyo, JOAQUIM Service: ? Author Type: RN LABOR DELIVERY Type: Progress Notes Filed: 03/07/2022 1:34 PM [...] March 07, 2022 12:59 PM [facility] 03-07-2022 History of Present illness Narrative [...] and surgery - Comanage with Dr Wilson; [facility] POD #1 Cataract Presurgical Documentation Cataract: [...] patient was offered a surgery/procedure at a [facility] facility. The surgeon/proceduralist and patient have [...] 2022 12:59 PM documented in this encounter [facility] 01-16-2022 Miscellaneous Notes Patient has been rescheduled with Dr. Almeida for March 07 in [place] Patient called Appointment Center and was scheduled with Dr. Taylor. We are waiting to confirm from Dr. Wilson office if it is ok for patient to stay scheduled with or to call and reschedule with Dr. Almeida LVM for patient to schedule at Cataract Evaluation with Dr. Almeida in [place] per faxed referral from Dr. Wilson. First attempt 01/11/22. Referral scanned into chart. documented in this encounter [facility] Evaluation note Diagnosis Combined forms of age-related cataract of both eyes- Primary Other and combined forms of senile cataract Posterior vitreous detachment of right eye Vitreous degeneration documented [facility] this [facility] Diagnosis Combined forms of age-related cataract of both eyes- Primary Other and combined forms of senile cataract [facility] Diagnosis Combined forms of age-related cataract of both eyes Other and combined forms of senile cataract Combined forms of age-related cataract of both eyes Other and combined forms of senile cataract Combined forms of age-related cataract of both eyes Other and combined forms of senile cataract [facility] Superficial punctate keratitis of left eye- Primary Pseudophakia Lens replaced by other means Combined forms of age-related cataract of both eyes Other and combined forms of senile cataract [facility] Diagnosis S/P cataract extraction and insertion of intraocular lens, left- Primary Combined forms of age-related cataract of both eyes Other and combined forms of senile cataract [facility] information [facility] Phone: Evaluation note* Diagnosis PCO (posterior capsular opacification), bilateral- Primary After-cataract, unspecified Pseudophakia of both eyes Lens replaced by other means Vitreous degeneration, 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 Other retinal disorders documented in this encounter [facility] note* Diagnosis Hypertension, unspecified type- Primary Coronary artery disease involving [place] coronary artery of [place] heart, unspecified whether angina present Hyperlipidemia, unspecified hyperlipidemia type documented in this encounter [facility] for referral (narrative)* Outpatient Procedure (Routine) - Authorized Specialty Diagnoses / Procedures Referred By Contac t Referred To Contact [facility] Diagnoses Hypertension, unspecified type Coronary artery disease involving [place] coronary artery of [place] heart, unspecified whether angina present Hyperlipidemia, unspecified hyperlipidemia type Procedures ECG COMPLETE ECG ROUTINE ECG W/LEAST 12 LDS W/I&R Shravan Buchanan MD [address] [place] [address] [facility] [place] [address] Referral ID Status Reason Start Date Expiration Date Visits Requested Visits Authorized [id number] Authorized Auto-Generat ed Referral 09/16/2023 09/15/2024 1 1 [facility] Summary Purpose Family History No Family [...] section and content) DATE CREATED AUTHOR 03/05/2019 [facility] DATE CREATED AUTHOR AUTHOR'S ORGANIZ ATION 03/13/2021 [facility] DATE CREATED AUTHOR AUTHOR'S ORGANIZ ATION 10/19/2022 [facility] DATE CREATED AUTHOR AUTHOR'S ORGANIZ ATION 11/18/2022 [facility] [place] DATE CREATED AUTHOR AUTHOR'S ORGANIZ ATION 06/18/2023 [facility] DATE CREATED AUTHOR AUTHOR'S ORGANDOREEN ATION 09/23/2023 [facility] Source Comments (unrecognize d section and content) In the event this informatio n is protected by the Federal Confidentiality of Alcohol and Drug Abuse Patient Records regulations: The Federal rules restrict any use of the information to criminally investigate or prosecute any alcohol or drug abuse patient.[facility] the event this information is protected by the Federal Confidentiality of Alcohol and Drug Abuse Patient Records regulations: The Federal rules restrict any use of the information to criminally investigate or prosecute any alcohol or drug abuse patient.[facility] the event this information is protected by the Federal Confidentiality of Alcohol and Drug Abuse Patient Records regulations: The Federal rules restrict any use of the information to criminally investigate or prosecute any alcohol or drug abuse patient.[facility] the event this information is protected by the Federal Confidentiality of Alcohol and Drug Abuse Patient Records regulations: The Federal rules restrict any use of the information to criminally investigate or prosecute any alcohol or drug abuse patient.[facility] the event this information is protected by the Federal Confidentiality of Alcohol and Drug Abuse Patient Records regulations: The Federal rules restrict any use of the information to criminally investigate or prosecute any alcohol or drug abuse patient.[facility] the event this information is protected by the Federal Confidentiality of Alcohol and Drug Abuse Patient Records regulations: The Federal rules restrict any use of the information to criminally investigate or prosecute any alcohol or drug abuse patient.[facility] the event this information is protected by the Federal Confidentiality of Alcohol and Drug Abuse Patient Records regulations: The Federal rules restrict any use of the information to criminally investigate or prosecute any alcohol or drug abuse patient.[facility] the event this information is protected by the Federal Confidentiality of Alcohol and Drug Abuse Patient Records regulations: The Federal rules restrict any use of the information to criminally investigate or prosecute any alcohol or drug abuse patient.[facility] Reason for Visit (unrecogniz ed section [...] ovider Active Referral Self Attending Provider Active Editor Greeting Card Relationship Specialty Start Date End Date Pat Newell MD PCP - General Family Practice 03/30/12 Editor Greeting Card Relationship Specialty Start Date End Date Pat Newell MD PCP - General Family Practice 03/30/12 Editor Greeting Card Relationship Specialty Start Date End Date Pat Newell MD PCP - General Family Practice 03/30/12 Editor Greeting Card Relationship Specialty Start Date End Date Pat Newell MD PCP - General Family Practice 03/30/12 Editor Greeting Card Relationship Specialty Start Date End Date Pat Newell MD PCP - General Family Medicine 03/30/12 Editor Greeting Card Relationship Specialty Start Date End Date Pat Newell MD PCP - General Family Medicine 03/30/12 Editor Greeting Card Relationship Specialty Start Date End Date Pat Newell MD PCP - General Family Medicine 03/30/12 Editor Greeting Card Relationship Specialty Start Date End Date Pat [...] BE BASED ON THE PRIMARY CLINICAL RECORDS. [facility] [employer] [facility]. provides no warranty or guarantee of the accuracy or completeness of information in this document.
--- NOTE | 2023-10-01 12:40 | CM.DCFOLLOWU ---
Person spoke with: patient How are you feeling? I am feeling the best I have in a while. I have washed clothes, cleaned the floors and even hung clothes out on the line. How is your pain? none Did you understand your discharge instructions? yes Do you have any questions about your discharge instructions? no Were you given any prescriptions at discharge? yes Were you able to get your prescriptions filled? yes Do you understand how to take your medications as ordered? yes Do you have any questions about your follow up appointment and do you plan to keep your follow up appointment? Plans on keeping follow up appointment with Dr. Graves as scheduled. Is there anything else that you would like to discuss? no Questions/Comments/Concerns/Other:
== END 2023-09-30 12:20 | disposition home or self-care (01) ==
LOC: ER 09-30 00:01 → ICU 09-30 06:33
PROVIDERS: Registered Nurse; Admitting Provider Family Medicine; Emergency Provider Emergency Medicine; PCP Family Medicine; Visit Provider Family Medicine
DX: I48.91 Unspecified atrial fibrillation (principal); R00.0 Tachycardia, unspecified; N39.0 Urinary tract infection, site not specified; I95.9 Hypotension, unspecified; I10 Essential (primary) hypertension; R79.89 Other specified abnormal findings of blood chemistry; Z20.822 Contact with and (suspected) exposure to COVID-19; Z79.82 Long term (current) use of aspirin; Z79.899 Other long term (current) drug therapy; I34.0 Nonrheumatic mitral (valve) insufficiency; Z98.890 Other specified postprocedural states; Z96.651 Presence of right artificial knee joint; Z96.652 Presence of left artificial knee joint
CPT/HCPCS: 0202U; 36415; 71045; 80053; 80061; 81001; 83036; 83605; 83880; 84145; 84484; 85007; 85025; 85027; 87040; 93005; 93308; 96365; 96375; 99285; G0378; J0283; J0696

== ENCOUNTER 2023-10-02 19:16 | Observation (INO) | payer MEDICARE, OTHER, SELFPAY ==
[2023-10-02] VITALS (22 sets, daily range): BP systolic 100–167; BP diastolic 64–95; PULSE 125–182; RESP 11–25; TEMP 36.4–36.6; O2SAT 87–99; BMI 31.6; BMI 32.0
--- OUTSIDE RECORDS SUMMARY | 2023-10-02 19:22 | XMS_ITS | CCD ---
Author Name Unknown Address [address] [place] [address] Organization [facility] Care Team Providers Care Patient Manager Name Role Phone ASHLEY, FAN H. Referring [...] Provider Pat Newell MD Primary Care Provider [phone] Pat Newell MD Primary Care Provider [phone] MD Pat Newell Primary Care Provider [phone] MD Pat Newell Referring Provider [phone] Self, Referral Attending Provider Unavailable Pat Newell MD Primary Care Provider [phone] MYLENE ALMEIDA Referring Unavailable HOPAT Soto [...] Unavailable MD Pat Newell Primary Care Provider [phone] MD Pat Newell Referring Provider Self, Referral [...] Enzyme (Serina) Inhibitors Drug Allergy 08-25-2020 [facility] Repository Opioid Agonists (2 sources) Codeine; Translations: [morphine] Drug Allergy 04-04-2020 [facility] Repository (5 sources) Angiotensin-conv erting enzyme inhibitor agent; Translations: [SERINA INHIBITORS] Drug Allergy 04-28-2012 [facility] (10 sources) Codeine; Translations: [CODEINE] Drug Allergy 04-28-[address] [facility] (9 sources) HYDROmorphone; Translations: [HYDROMORPHONE (BULK)] Drug Allergy 05-12-2012 [facility] (7 sources) Angiotensin-conv erting enzyme inhibitor agent Drug Allergy 04-28-2012 [facility] (7 sources) amLODIPine; Translations: [AMLODIPINE] Drug Allergy 04-24-2022 [facility] (3 sources) Acetaminophen; Translations: [acetaminophen] Drug Allergy 07-28-2017 [facility] (3 sources) HYDROcodone; Translations: [hydrocodone] Drug Allergy 07-28-2017 [facility] (5 sources) Meperidine; Translations: [meperidine] Drug Allergy 07-28-2017 [facility] (5 sources) Morphine; Translations: [morphine] Drug Allergy 07-28-2017 [facility] (1 source) Angiotensin Converting Enzyme (Serina) Inhibitors Drug allergy (disorder) 04-22-2013 [facility] Repository (1 source) Codeine Drug Allergy 04-29-2013 [facility] Repository (1 source) Meperidine Drug Allergy 04-29-2013 [facility] Repository (1 source) Angiotensin Converting Enzyme (Serina) Inhibitors Drug allergy (disorder) 07-28-2017 [facility] Repository (1 source) Amoxicillin; Translations: [AMOXICILLIN] Drug Allergy 03-13-2023 [facility] Repository (1 source) gabapentin; Translations: [GABAPENTIN] Drug Allergy 05-25-2019 [facility] Repository Medications Current Medications Medication Drug Class(es) [...] Coronary arteriosclerosis; Translations: [Atherosclerotic heart disease of [place] coronary artery without angina pectoris] Onset: 04-24-2022 [...] doesn't want to. We will inform provider. [facility] 36on 09-19-2023 36 Left voicemail for patient to schedule cardiopulmonary exercise test. [facility] Office Visiton 09-03-2023 Follow-up visit [id number] Brandi Hubbard cca 1945 F Date Provider Department Center 09/03/2023 [facility] PETERS [facility] Family History Problem Relation Age of Onset Coronary artery disease Father Hypertension Father Family Status - Relation Status Age at Father Level of Service:77166 RI OFFICE/OUTPATIENT ESTABLISHED MOD MDM 30 MIN [facility] Documentationon 08-06-2023 Documentation [id number] Brandi Hubbard cca S 1945 F Date Provider Department Center 08/06/2023 BR[place] CRAW[place] [facility] VASC LAB [place] HeartVAS Family History Problem Relation Age of Onset Coronary artery disease Father Hypertension Father Family Status - Relation Status Age at Father [facility] HPon 08-06-2023 HP H&P reviewed. The patient was examined and there are no changes to the H&P. [facility] NURSNOTEon 08-06-2023 NURSNOTE Patient to be seen i n clinic by Dr. Doran or nurse practitioner in 1 month to discuss VIOLA results and medical plan. Message left with [facility] to call patient with appoint date and time. Patient provided the number [phone]) to call [facility] if she does not receive an appointment call by 08/08/2023. [facility] NURSNOTE Bedside swallow stud y completed and passed. [facility] NURSNOTE RN educated pt on d/ c instructions. RN encouraged pt to voice any questions or concerns. Pt verbalizes no questions or concerns at this time. Pt was wheeled off of unit with all of belongings. [facility] Prep for Procedureon 023 Prep for Procedure [id number] Brandi Hubbard cca 1945 F Date Provider Department [place] 08/06/2023 CLINTON PETERS [facility] CARD [place] Count Family History Problem Relation Age of Onset Coronary artery disease Father Hypertension Father Family Status - Relation Status Age at Father [facility] Telephoneon 07-28-2023 Telephone [id number] Brandi Hubbard cca 1945 F Date Provider Department Center 07/28/[address]23 [address] [place] [facility] VASC LAB [place] HeartVAS Family History Problem Relation Age of Onset Coronary artery disease Father Hypertension Father Family Status - Relation Status Age at Father [facility] 37on 07-08-2023 37 *Resume lasix. Take 20mg daily x1 week then go back to every other day. *Have stress test done. *Watch your fluid intake. Try to limit to 2 liters a day. *Eat a low sodium diet. [facility] HPon 07-08-2023 HP Patient here for [facility] low up TB for SOB and chest pain. She was started on isosorbide. She is scheduled for outpatient stress test next week. She denies chest pain. SOB is improving. C/o LE edema which resolves by morning. C/o fatigue. Review of Systems Cardiovascular: Positive for leg swelling. All other systems reviewed and are negative. [facility] Office Visiton 07-08-2023 Follow-up visit [id number] Brandi Hubbard cca 1945 F Date Provider Department Center 07/08/2023 [facility] Family History Problem Relation Age of Onset Coronary artery disease Father Hypertension Father Family Status - Relation Status Age at Father Level of Service:50254 RI OFFICE/OUTPATIENT ESTABLISHED MOD [facility] 30-39 MIN Reason for Visit and Comments: Fatigue [46] Congestive Heart Failure [127] Edema [1520898009] Shortness of Breath [937108] Normal [facility] MM screening mammo BI w/CADo n 06-11-2023 MM screening mammo BI w/CAD [facility] Main [place] [address] [place] [address] Mammography Report Signed Patient: Son Hubbard MR#: [id number] : 1945 Acct:[id number] Age/Sex: 78 / F ADM Date: 06/11/23 Loc: [place] Room: Type: [facility] Attending Dr: Referral Self Copies [...] Charlie Green M.D.06/11/2023 12:04 PM Dictation Location: [facility] Transcribed By: [facility] 06/11/231203 Dictated By: Charlie Green II, MD 06/11/231200 Signed By: 06/11/23 120 [facility] Office Visiton 03-28-2023 Follow-up visit [id number] Brandi Hubbard cca 1945 F Date Provider Department Center 03/28/2023 CLINTON PETERS [facility] Family History Problem Relation Age of Onset Coronary artery disease Father Hypertension Father Family Status - Relation Status Age at Father Level of Service:08086 RI OFFICE/OUTPATIENT ESTABLISHED LOW MDM 20-29 MIN Reason for Visit and Comments: Follow-up [594925] - 6 MONTH FOLLOW UP Normal [facility] INSULINon 11-13-2022 Insulin 16.2 uIU/mL Normal 2.6-24.9 [place] [facility] Comment on above: Performed By: #### I NSULIN ####[facility] [address] [address]Dr. Isi Britton CBC AUTO DIFFon 11-12-2022 BASO # 0.0 103/ul Normal 0.0-0.1 [place] [facility] Comment on above: Performed By: #### C BC #### [facility] Laboratory [address] [address] [address] Isi Britton Basophils/100 WBC (Bld) 0.6 % Normal 0.2-2.0 [facility] Comment on above: Performed By: #### C BC #### [facility] [address] [address] [address] Isi Britton EO # 0.1 103/ul Normal 0.0-0.7 [facility] Comment on above: Performed By: #### C BC #### [facility] [address] [address] [address] Isi Britton Eosinophils/100 WBC (Bld) 1.3 % Normal 0.9-7.0 [facility] Comment on above: Performed By: #### C BC #### [facility] Laboratory [address] [place] [address] Dr. Isi Britton Erythrocyte distribution width (RBC) [Ratio] 13.1 % Normal 11.0-15.0 [place] [facility] Comment on above: Performed By: #### C BC #### [facility] Laboratory [address] [place] [address] Dr. Isi Britton Hematocrit (Bld) [Volume fraction] 40.1 % Normal 36.0-48.0 [place] [facility] Comment on above: Performed By: #### C BC #### [facility] [address] [place] [address] Dr. Isi Britton Hemoglobin (Bld) [Mass/Vol] 13.5 g/dL Normal 12.0-16.0 [facility] Comment on above: Performed By: #### C BC #### [facility] Laboratory [address] [place] [address] Dr. Isi Britton IG # 0.01 10e3/ul Normal 0.00-0.03 [place] [facility] Comment on above: Performed By: #### C BC #### [facility] [address] [place] [address] Dr. Isi Britton IG % 0.2 % Normal 0.0-0.5 [facility] Comment on above: Performed By: #### C BC #### [facility] Laboratory [address] [place] [address] Dr. Isi Britton LYMPH # 1.6 103/ul Normal 1.2-3.8 [place] [facility] Comment on above: Performed By: #### C BC #### [facility] [address] [place] [address] Dr. Isi Britton Lymphocytes/100 WBC (Bld) 24.9 % Normal 20.5-60.0 [facility] Comment on above: Performed By: #### C BC #### [facility] [address] [place] [address] Dr. Isi Britton MANUAL DIFF REQ NO Normal [facility] Comment on above: Performed By: #### C BC #### [facility] [address] [place] [address] Dr. Isi Britton MCH (RBC) [Entitic mass] 31.9 pg Normal 26.7-34.0 [place] [facility] Comment on above: Performed By: #### C BC #### [facility] [address] [place] [address] Dr. Isi Britton MCHC (RBC) [Mass/Vol] 33.7 g/dL Normal 29.9-35.2 [facility] Comment on above: Performed By: #### C BC #### [facility] Laboratory [address] [place] [address] Dr. Isi Britton MCV (RBC) [Entitic vol] 94.8 fL Normal 81.0-99.0 [place] [facility] Comment on above: Performed By: #### C BC #### [facility] [address] [place] [address] Dr. Isi Britton MONO # 0.6 103/ul Normal 0.3-0.8 [place] [facility] Comment on above: Performed By: #### C BC #### [facility] Laboratory [address] [place] [address] Dr. Isi Britton Monocytes/100 WBC (Bld) 10.1 % Normal 1.7-12.0 [place] [facility] Comment on above: Performed By: #### C BC #### [facility] [address] [place] [address] Dr. Isi Britton NEUT # 3.9 103/ul Normal 1.4-6.5 [facility] Comment on above: Performed By: #### C BC #### [facility] Laboratory [address] [place] [address] Dr. Isi Britton Neutrophils/100 WBC (Bld) 62.9 % Normal 43.0-75.0 [facility] Comment on above: Performed By: #### C BC #### [facility] Laboratory [address] [place] [address] Dr. Isi Britton Platelet mean volume (Bld) [Entitic vol] 10.5 fL Normal 9.5-13.5 [facility] Comment on above: Performed By: #### C BC #### [facility] Laboratory [address] [address] [address] Isi Britton PLT 220 103/ul Normal 150-450 [place] [facility] Comment on above: Performed By: #### C BC #### [facility] [address] [address] [address] Isi Britton RBC 4.23 106/ul Normal 4.20-5.40 [place] [facility] Comment on above: Performed By: #### C BC #### [facility] [address] [address] [address] Isi Britton WBC 6.2 103/ul Normal 4.0-11.0 [facility] Comment on above: Performed By: #### C BC #### [facility] [address] [place] [address] Dr. Isi Britton FREE T3on 11-12-2022 FREE T3 2.21 pg/mlL Normal 2.18-3.98 [place] [facility] Comment on above: Performed By: #### L IPID, CMP, T7, FT3, TSH #### [facility] Laboratory [address] [address] [address] Isi Britton FREE T4on 11-12-2022 Free T4 [Mass/Vol] 1.04 ng/dL Normal 0.76-1.46 [facility] Comment on above: Performed By: #### I RONI, FT4 ####[facility] [id number] [address]Dr. Isi Britton FREE THYROXINE INDEX T7on FTI 3.38 Normal 1.30-4.50 [place] [facility] Comment on above: Performed By: #### L IPID, CMP, T7, FT3, TSH #### [facility] [address] [address] [address] Isi Britton T3U 36.0 % Normal 30.0-39.0 [place] [facility] Comment on above: Performed By: #### L IPID, CMP, T7, FT3, TSH #### [facility] [address] [place] [address] Dr. Isi Britton T4 [Mass/Vol] 9.40 ug/dL Normal 4.80-13.90 [facility] Comment on above: Performed By: #### L IPID, CMP, T7, FT3, TSH #### [facility] [address] [address] [address] Isi Britton GLYCOHEMOGLOBIN A1Con 2022 ADA RECOMMENDATION SEE BELOW Normal [facility] Comment on above: Result Comment: ADA RECOMMENDED LIMIT 4.0 - 6.0 ADA THERAPEUTIC TARGET < 7.0 ACTION SUGGESTED > 7.0 Performed By: #### A 1C #### [facility] [address] [address] [address] Isi Britton Glucose [Mass/Vol] 111 mg/dL Normal [facility] Comment on above: Performed By: #### A 1C #### [facility] [address] [place] [address] Dr. Isi Britton HbA1c (Bld) [Mass fraction] 5.5 % Normal 4.5-6.2 [facility] Comment on above: Performed By: #### A 1C #### [facility] [address] [place] [address] Dr. Isi Britton IRONon 11-12-2022 Iron [Mass/Vol] 71.0 ug/dL Normal 50.0-170.0 [facility] Comment on above: Performed By: #### I RONI, FT4 #### [facility] [address] [place] [address] Dr. Isi Britton LIPID PROFILEon 11-12-2022 CHOL-HDL RATIO NORM SEE BELOW Normal [facility] Comment on above: Result Comment: 3.3 - 4.4 LOW RISK 4.4 - 7.1 AVERAGE RISK 7.1 - 11.0 MODERATE RISK >11.0 HIGH RISK Performed By: #### L IPID, CMP, T7, FT3, TSH #### [facility] [address] [place] [address] Dr. Isi Britton Cholesterol [Mass/Vol] 139 mg/dL Normal <=200 [facility] Comment on above: Performed By: #### L IPID, CMP, T7, FT3, TSH #### [facility] [address] [address] [address] Isi Britton Cholesterol in HDL [Mass/Vol] 70 mg/dL Critically high 40-60 [facility] Comment on above: Performed By: #### L IPID, CMP, T7, FT3, TSH #### [facility] [address] [address] [address] Isi Britton Cholesterol in LDL [Mass/Vol] 49.4 mg/dL Normal [facility] Comment on above: Performed By: #### L IPID, CMP, T7, FT3, TSH #### [facility] [address] [address] [address] Isi Britton Cholesterol.total/C holesterol in HDL [Mass ratio] 2.0 {ratio} Normal [facility] Comment on above: Performed By: #### L IPID, CMP, T7, FT3, TSH #### [facility] [address] [address] [address] Isi Britton HDL NORMAL > or = 60 mg/dl - LO W CARDIOVASCULAR RISK <40 mg/dl - HIGH CARDIOVASCULAR RISK Normal [facility] Comment on above: Performed By: #### L IPID, CMP, T7, FT3, TSH #### [facility] [address] [address] [address] Isi Britton LDL CALC NORMAL SEE BELOW Normal [facility] Comment on above: Result Comment: <100 mg/dl OPTIMAL 100 - 129 mg/dl NEAR OR ABOVE OPTIMAL 130 - 159 mg/dl BORDERLINE HIGH 160 - 189 mg/dl HIGH >190 mg/dl VERY HIGH Performed By: #### L IPID, CMP, T7, FT3, TSH #### [facility] [address] [address] [address] Isi Britton Triglyceride [Mass/Vol] 98 mg/dL Normal <=150 [facility] Comment on above: Performed By: #### L IPID, CMP, T7, FT3, TSH #### [facility] [address] [address] [address] Isi Britton VLDL CALC 19.6 mg/dL Normal [facility] Comment on above: Performed By: #### L IPID, CMP, T7, FT3, TSH #### [facility] [address] [address] [address] Isi Britton PROF 14(COMP METB)on 023 Albumin [Mass/Vol] 3.9 g/dL Normal 3.4-5.0 [facility] Comment on above: Performed By: #### L IPID, CMP, T7, FT3, TSH #### [facility] [address] [place] [address] Dr. Isi Britton Albumin/Globulin [Mass ratio] 1.2 {ratio} Normal [facility] Comment on above: Performed By: #### L IPID, CMP, T7, FT3, TSH #### [facility] [address] [place] [address] Dr. Isi Britton ALP [Catalytic activity/Vol] 99 U/L Normal 46-116 [facility] Comment on above: Performed By: #### L IPID, CMP, T7, FT3, TSH #### [facility] [address] [place] [address] Dr. Isi Britton ALT [Catalytic activity/Vol] 26 U/L Normal 14-59 [facility] Comment on above: Performed By: #### L IPID, CMP, T7, FT3, TSH #### [facility] [address] [place] [address] Dr. Isi Britton Anion gap [Moles/Vol] 13.1 mmol/L Normal [facility] Comment on above: Performed By: #### L IPID, CMP, T7, FT3, TSH #### [facility] [address] [place] [address] Dr. Isi Britton AST [Catalytic activity/Vol] 20 U/L Normal 15-37 [facility] Comment on above: Performed By: #### L IPID, CMP, T7, FT3, TSH #### [facility] [address] [place] [address] Dr. Isi Britton Bilirubin [Mass/Vol] 0.9 mg/dL Normal 0.2-1.0 [facility] Comment on above: Performed By: #### L IPID, CMP, T7, FT3, TSH #### [facility] [address] [address] [address] Isi Britton Calcium [Mass/Vol] 9.4 mg/dL Normal 8.5-10.1 [facility] Comment on above: Performed By: #### L IPID, CMP, T7, FT3, TSH #### [facility] [address] [address] [address] Isi Britton Chloride [Moles/Vol] 104 mmol/L Normal 98-107 [facility] Comment on above: Performed By: #### L IPID, CMP, T7, FT3, TSH #### [facility] [address] [place] [address] Dr. Isi Britton CO2 [Moles/Vol] 29.2 mmol/L Normal 21.0-32.0 [facility] Comment on above: Performed By: #### L IPID, CMP, T7, FT3, TSH #### [facility] [address] [place] [address] Dr. Isi Britton Creatinine [Mass/Vol] 1.36 mg/dL Critically high 0.55-1.02 [facility] Comment on above: Performed By: #### L IPID, CMP, T7, FT3, TSH #### [facility] [address] [place] [address] Dr. Isi Britton EGFR-AF FRENCH 46 mL/min/1.73m2 Critically low >=60 [facility] Comment on above: Performed By: #### L IPID, CMP, T7, FT3, TSH #### [facility] [address] [place] [address] Dr. Isi Britton EGFR-NON AF FRENCH 38 mL/min/1.73m2 Critically low >=60 [facility] Comment on above: Performed By: #### L IPID, CMP, T7, FT3, TSH #### [facility] [address] [place] [address] Dr. Isi Britton Globulin (S) [Mass/Vol] 3.3 g/dL Normal [facility] Comment on above: Performed By: #### L IPID, CMP, T7, FT3, TSH #### [facility] [address] [address] [address] Isi Britton Glucose [Mass/Vol] 107 mg/dL Critically high 74-106 [facility] Comment on above: Performed By: #### L IPID, CMP, T7, FT3, TSH #### [facility] [address] [address] [address] Isi Britton Potassium [Moles/Vol] 4.3 mmol/L Normal 3.5-5.1 [facility] Comment on above: Performed By: #### L IPID, CMP, T7, FT3, TSH #### [facility] [address] [place] [address] Dr. Isi Britton Protein [Mass/Vol] 7.2 g/dL Normal 6.4-8.2 [facility] Comment on above: Performed By: #### L IPID, CMP, T7, FT3, TSH #### [facility] [address] [place] [address] Dr. Isi Britton Sodium [Moles/Vol] 142 mmol/L Normal 136-145 [facility] Comment on above: Performed By: #### L IPID, CMP, T7, FT3, TSH #### [facility] [address] [place] [address] Dr. Isi Britton Urea nitrogen [Mass/Vol] 24.0 mg/dL Critically high 7.0-18.0 [facility] Comment on above: Performed By: #### L IPID, CMP, T7, FT3, TSH #### [facility] [address] [place] [address] Dr. Isi Britton Urea nitrogen/Creatinine [Mass ratio] 17.6 mg/mg Normal [facility] Comment on above: Performed By: #### L IPID, CMP, T7, FT3, TSH #### [facility] [address] [place] [address] Dr. Isi Britton TSHon 11-12-2022 TSH 1.802 uIU/mL Normal 0.358-3.740 [facility] Comment on above: Performed By: #### L IPID, CMP, T7, FT3, TSH #### [facility] [facility] [address] [place], [place] [address] Dr. Isi Britton Covid-19 PCR ([facility])on 09-11 SARS-CoV-2 (COVID-19) RNA ERICK+probe Ql (Unsp spec) Not detected Normal NOT DETECTED The [facility] Comment on above: Result Comment: This test is not yet approved or cleared by the [place] FDA. When there are no FDA-approved or cleared tests available, and other criteria are met, FDA can make tests available under an emergency access mechanism called an Emergency Use Authorization (EUA). The EUA for this test is supported by the [place] of Health and Human Service's (HHS's) declaration [...] consistent with SARS-CoV-2. Performed By: #### [facility] ####[facility] [address] [place], [place] [address]JmDr. Isi Britton ECHOCARDIO M/2D COMPLETEon 1 09-09-2021 ECHOCARDIO M/2D COMPLETE Patient: SON HUBBARD Exam Date: 07/10/2022 : 1945 Gender:F Ordering : DR CLINTON DORAN M.D. Admission #: [id number] Family : DR PAT NEWELL . Order #: [id number] CLICK HERE TO VIEW EXAM ECHOCARDIOGRAM REPORT [...] Johnson M.D. on 07/10/2022 at 15:37 Normal [facility] ANES POSTPROC EVALon 05- 022 ANES POSTPROC EVAL HNO ID: [id number] Author: Abner Cox II, DO Service: Anesthesiology Author Type: Anesthesiologist Type: Anesthesia Postprocedure Evaluation Filed: 05/15/2022 11:10 AM Note Text: POST ANESTHESIA EVALUATION NOTE : 1945 Procedure Summary Date: 05/15/22 Room / Location: [address] Anesthesia Start: 928 Anesthesia Stop: 949 [...] May 15, 2022 TIME: 11:10 AM CSN: [id number] Normal [facility] ANES PRE-OPon 05-15-2022 ANES PRE-OP HNO ID: [id number] Author: Abner Cox II, DO Service: Anesthesiology Author Type: Anesthesiologist Type: Anesthesia Preprocedure Evaluation Filed: 05/15/2022 8:52 AM Note Text: ANESTHESIOLOGY DAY OF SURGERY NOTE : 1945 Procedure Information Date/Time: 05/15/22 0930 Procedures: PHACOEMULSIFICATION CATARACT IMPLANT INTRAOCULAR LENS W/O ENDOSCOPIC CYCLOPHOTOCOAGULATION (Right: Eye) OPHTHALMIC BIOMETRY BY PARTIAL COHERENCE INTERFEROMETRY W/INTRAOCULAR LENS POWER CALCULATION (Right: Eye) Location: [address] Surgeons: Mylene Almeida V, MD Estimated [...] May 15, 2022 TIME: 8:51 AM CSN: [id number] [facility] OPERATIVE NOon 05-15-2022 OPERATIVE NO HNO ID: [id number] Author: Mylene Almeida V, MD Service: Ophthalmology Author Type: Physician Type: Operative Report Filed: 05/15/2022 9:46 AM Note Text: OPERATIVE REPORT DATE OF SERVICE: May 15, 2022 PRIMARY SURGEON: Mylene Almeida M.D. PRODUCTION SUPPORT SUPERVISOR: None Procedure(s) (LRB): PHACOEMULSIFICATION CATARACT IMPLANT INTRAOCULAR [...] corneal incision was created temporally with a [place] blade then a 2.4 mm keratome. The [...] Implant Name Type Inv. Item Serial No. Instrumentation Controls Engineer Lot No. LRB No. Used Action Model No. LENS IOL 0D +18 TALAT UV ABS - [id number] Intraocular Lens LENS IOL 0D +18 TALAT UV ABS [id number] SHRAVAN Make YES! Happen SURGICAL Right 1 Implanted [id number] was inserted [...] 9:44 AM - Comanage with Dr Wilson; [facility] POD #1 Mylene ALMEIDA MD [facility] ANES POSTPROC EVALon 022 ANES POSTPROC EVAL HNO ID: [id number] Author: Cristian Parker MD Service: Anesthesiology Author Type: Anesthesiologist Type: Anesthesia Postprocedure Evaluation Filed: 05/01/2022 11:15 AM Note Text: POST ANESTHESIA EVALUATION NOTE : 1945 Procedure Summary Date: 05/01/22 Room / Location: [address] Anesthesia Start: 4 Anesthesia Stop: 1103 [...] May 01, 2022 TIME: 11:14 AM CSN: [id number] Normal [facility] ANES PRE-OPon 05-01-2022 ANES PRE-OP HNO ID: [id number] Author: Cristian Parker MD Service: Anesthesiology Author Type: Anesthesiologist Type: Anesthesia Preprocedure Evaluation Filed: 05/01/2022 10:04 AM Note Text: ANESTHESIOLOGY DAY OF SURGERY NOTE : 1945 Procedure Information Date/Time: 05/01/22 1030 Procedures: PHACOEMULSIFICATION CATARACT IMPLANT INTRAOCULAR LENS W/O ENDOSCOPIC CYCLOPHOTOCOAGULATION (Left: Eye) OPHTHALMIC BIOMETRY BY PARTIAL COHERENCE INTERFEROMETRY W/INTRAOCULAR LENS POWER CALCULATION (Left: Eye) Location: [place] [address] / [facility] Surgeons: Mylene Almeida V, MD Estimated body [...] May 01, 2022 TIME: 10:03 AM CSN: [id number] [facility] NURSING PROGon 05-01-2022 NURSING PROG HNO ID: [id number] Author: Deepika Stephen RN Service: ? Author [...] Deepika Stephen RN In Department: AMBULATORY SURGERY [facility] OPERATIVE NOon 05-01-2022 OPERATIVE NO HNO ID: [id number] Author: Mylene Almeida V, MD Service: Ophthalmology Author Type: Physician Type: Operative Report Filed: 05/01/2022 11:01 AM Note Text: OPERATIVE REPORT DATE OF SERVICE: May 01, 2022 PRIMARY SURGEON: Mylene Almeida M.D. PRODUCTION SUPPORT SUPERVISOR: None Procedure(s) (LRB): PHACOEMULSIFICATION CATARACT IMPLANT INTRAOCULAR [...] corneal incision was created temporally with a [place] blade then a 2.4 mm keratome. The [...] Implant Name Type Inv. Item Serial No. Instrumentation Controls Engineer Lot No. LRB No. Used Action Model No. LENS IOL 0D +19.5 TALAT UV ABS - [id number] Intraocular Lens LENS IOL 0D +19.5 TALAT UV ABS [id number] SH[employer]VAN [employer] SURGICAL Left 1 Implanted [id number] [...] 10:59 AM - Comanage with Dr Wilson; [facility] POD #1 Mylene ALMEIDA MD [facility] HISTORY PHYSICALon HISTORY PHYSICAL HNO ID: [id number] Author: Chantal Can APRN.VOICER Service: ? Author Type: Nurse Practitioner Type: [...] fevers. Neuro: No history of TIA's, stroke, MANAGER INTERNATIONAL tumor, impaired sensorium, hemiplegia, paraplegia or quadraplegia. No neurological symptoms or problems. Respiratory: No history of current cough or dyspnea, or pneumonia in the past 6 weeks. No history of respiratory/pulmonary symptoms or problems. 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 Normal [facility] Covid-19 PCR ([facility])on 03-12 SARS-CoV-2 (COVID-19) RNA ERICK+probe Ql (Unsp spec) Not detected Normal NOT DETECTED The [facility] Comment on above: Result Comment: This test is not yet approved or cleared by the [place] FDA. When there are no FDA-approved or cleared tests available, and other criteria are met, FDA can make tests available under an emergency access mechanism called an Emergency Use Authorization (EUA). The EUA for this test is supported by the [place] of Health and Human Service's (HHS's) declaration [...] consistent with SARS-CoV-2. Performed By: #### C [facility] #### [facility] [address] [place] [address] Dr. Isi Birmingham 01-11-2022 CNPN Telephone (OPHTLN) SON HUBBARD ([id number]) 1945 F Date Time Provider Department 01/11/22 MYLENE ALMEIDA During your visit today, we recorded the following information about you: Hernan Vences 01/11/2022 11:37 AM Signed LVM for patient to schedule at Cataract Evaluation with Dr. Almeida in [place] per faxed referral from Dr. Wilson. First [...] with Dr. Almeida for March 07 in [place] Allergies As of Date: 01/11/2022 Noted Allergy [...] Status:Closed by HERNAN VENCES on 01/16/22 Normal [facility] C REACTIVE PROTEINon 021 CRP [Mass/Vol] 5.1 mg/L Normal 0.0-7.0 The [facility] Comment on above: Performed By: #### 6 1405 #### [address] CERVICAL SPINE 2 OR 3 [facility] 03-12-2021 CERVICAL SPINE 2 OR 3 [facility] Department of Radiology [address] [place] [id number] ===== Patient Name: SON HUBBARD : 1945 Sex: F Age: Race: White Pt. Location: [facility] Patient Status: D Ordered Date: 03/12/2021 4:00:00 PM Completed Date: 03/12/2021 04:25 PM Requesting Provider: REZA HARVEY Attending Provider: REZA HARVEY Report Copy To: Signs & Symptoms: M54.2 Cervicalgia I10 History: Radhika Comments: Exam: CERVICAL SPINE 2 OR 3 [facility] ===== CERVICAL SPINE 2 OR 3 [facility] 03/12/2021 4:25 PM CLINICAL INDICATIONS: M54.2 [...] curvature. Electronically signed: Rosendo Salvador. Transcribed by: [email or web address], User Resident: Electronically Signed by: ROSENDO SALVADOR @ 03/13/2021 08:58 AM Normal [facility] LUMBAR SPINE 2 OR 3 [facility] LUMBAR SPINE 2 OR 3 [facility] Department of Radiology [address] [place] [phone] ===== Patient Name: SON HUBBARD : 1945 Sex: F Age: Race: White Pt. Location: 264 Patient Status: D Ordered Date: 03/12/2021 4:00:00 PM Completed Date: 03/12/2021 04:25 PM Requesting Provider: REZA HARVEY Attending Provider: REZA HARVEY Report Copy To: Signs & Symptoms: M54.5 Low back pain I10 History: [place] Comments: Exam: LUMBAR SPINE 2 OR 3 [facility] ===== LUMBAR SPINE 2 OR 3 [facility] 03/12/2021 4:25 PM CLINICAL INDICATIONS: M54.5 [...] levels. Electronically signed: Rosendo Salvador. Transcribed by: [email or web address], User Resident: Electronically Signed by: ROSENDO SALVADOR @ 03/13/2021 10:49 AM Normal [facility] S-I JOINTS MIN 4 [facility] 03-12 S-I JOINTS MIN 4 [facility] Department of Radiology [address] [place] [phone] ===== Patient Name: SON HUBBARD : 1945 Sex: F Age: Race: White Pt. Location: [facility] Patient Status: D Ordered Date: 03/12/2021 4:00:00 PM Completed Date: 03/12/2021 04:25 PM Requesting Provider: REZA HARVEY Attending Provider: REZA HARVEY Report Copy To: Signs & Symptoms: M54.5 Low back pain I10 History: [place] Comments: Exam: S-I JOINTS MIN 4 VWS [...] report. Electronically signed: Brisa Jackson. Transcribed by: [email or web address], User Resident: HARRISON HUNTER Electronically Signed by: BRISA JACKSON @ 03/13/2021 10:46 AM I personally read this/these film(s) with this resident Normal The [facility] SEDIMENTATION RATEon 021 SED RATE 37 mm/hr High 0-20 [facility] Comment on above: Performed By: #### 5 [id number] #### [facility] [address] [facility]. [address] Cardiovascular Lab Reporton 05-12-2020 Cardiovascular Lab Report [facility] Patient Name: Son Hubbard [facility] MR #: [id number] Physician: Clinton Pham Department of Cornelio Doran Medicine Service Date: 05/11/2020 Division of Birthdate: 1945 Cardiology Room #: Adult Cardiovascular Services [facility] [address] [place] [address] Cardiovascular Laboratory Report INDICATION: The patient is a 75-year-old woman, who recently was evaluated in Cardiology Clinic because of a class 3 heart failure symptoms. She was evaluated by initially an echocardiography, then a transesophageal echocardiogram that showed ages-md-syismrtb mitral regurgitation and mild aortic valve regurgitation. [...] signed informed consent. She was brought to research lab assistant in a fasting state. Modified Dom's test was favorable on the left. Access in the left radial artery was obtained using micropuncture technique. A 6-Greek x 11 cm Hydrophilic sheath was advanced. [...] coronary artery. This was exchanged to a 6-Greek AR2 guiding catheter followed by a 6-Greek AL1 guiding catheter, which was able to engage the right coronary artery. Initial angiography was performed. A Zondle wire was advanced into the distal RCA. An Emerge 3.0 x 15 mm balloon was used to perform balloon dilatation at 8 atmospheres in the proximal RCA. Angiography revealed suboptimal results, this was treated using a Synergy 3.0 x 20 mm drug-eluting stent deployed at 12 atmospheres and post dilated using NC Quantum Curran 3.0 x 15 mm noncompliant balloon inflated [...] Doran M.D. Date Trans: 05/12/2020 06:46 Tommy/cale [id number] cc: Pat Newell M.D. [address] [place] [phone] Normal The [facility] BNP (B-TYPE NATRIURETIC PEPT EFE)on 04-05-2020 Natriuretic peptide B (Bld) [Mass/Vol] 26 pg/mL Normal 0-100 The [facility] Comment on above: Order Comment: No: D o not add to previous draw Result Comment: Give n the appropriate clinical setting a BNP result of >100 pg/mL indicates congestive heart failure. Performed By: #### 8 5123 #### [facility] [address] CBC COMPLETE BLOOD COUNTon 0 04-05-2020 Erythrocyte distribution width (RBC) [Ratio] 13.1 % Normal 11.5-15.0 The [facility] Comment on above: Order Comment: No: D o not add to previous draw Performed By: #### 5 0608 #### [facility] [address] [facility] [place] [address], [facility] Hematocrit (Bld) [Volume fraction] 42.1 % Normal 36.0-45.0 The [facility] Comment on above: Order Comment: No: D o not add to previous draw Performed By: #### 5 0608 #### [facility] [address] [place] [address], [facility] Hemoglobin (Bld) [Mass/Vol] 14.3 g/dL Normal 12.0-15.0 The [facility] Comment on above: Order Comment: No: D o not add to previous draw Performed By: #### 5 0608 #### [facility] [address] [place] [address], [facility] MCH (RBC) [Entitic mass] 31.0 pg Normal 27.0-33.0 The [facility] Comment on above: Order Comment: No: D o not add to previous draw Performed By: #### 5 0608 #### [facility] [address] [place] [address], [facility] MCHC (RBC) [Mass/Vol] 34.0 g/dL Normal 32.0-35.0 The [facility] Comment on above: Order Comment: No: D o not add to previous draw Performed By: #### 5 0608 #### [facility] [address] [place] [address], [facility] MCV (RBC) [Entitic vol] 91.3 fL Normal 82.0-98.0 The [facility] Comment on above: Order Comment: No: D o not add to previous draw Performed By: #### 5 0608 #### [facility] [address] Nucleated RBC/100 WBC (Bld) [Ratio] 0 % Normal 0-0 The [facility] Comment on above: Order Comment: No: D o not add to previous draw Performed By: #### 5 0608 #### [facility] [address] [facility] [place] [address], [facility] PLAT CNT 249 10*3/uL Normal 150-400 [facility] Comment on above: Order Comment: No: D o not add to previous draw Performed By: #### 5 0608 #### [facility] [address] [facility] [place] [address], [facility] RBC (Bld) [#/Vol] 4.61 10*6/uL Normal 3.80-5.00 The [facility] Comment on above: Order Comment: No: D o not add to previous draw Performed By: #### 5 0608 #### [facility] [address] [place] [address], [facility] WBC (Bld) [#/Vol] 6.32 10*3/uL Normal 4.00-10.60 The [facility] Comment on above: Order Comment: No: D o not add to previous draw Performed By: #### 5 0608 #### [facility] [address] [place] [address], [facility] Erythrocyte distribution width (RBC) [Ratio] 13.0 % Normal 11.5-15.0 The [facility] Comment on above: Order Comment: No: D o not add to previous draw Performed By: #### 5 0608 #### [facility] [address] [place] [address], [facility] Hematocrit (Bld) [Volume fraction] 40.2 % Normal 36.0-45.0 The [facility] Comment on above: Order Comment: No: D o not add to previous draw Performed By: #### 5 0608 #### [facility] [address] [place] [address], [facility] Hemoglobin (Bld) [Mass/Vol] 13.7 g/dL Normal 12.0-15.0 The [facility] Comment on above: Order Comment: No: D o not add to previous draw Performed By: #### 5 0608 #### [facility] [address] [place] [id number], [facility] MCH (RBC) [Entitic mass] 31.4 pg Normal 27.0-33.0 The [facility] Comment on above: Order Comment: No: D o not add to previous draw Performed By: #### 5 0608 #### [facility] [address] [place] [address], [facility] MCHC (RBC) [Mass/Vol] 34.1 g/dL Normal 32.0-35.0 The [facility] Comment on above: Order Comment: No: D o not add to previous draw Performed By: #### 5 0608 #### [facility] [address] [place] [address], [facility] MCV (RBC) [Entitic vol] 92.0 fL Normal 82.0-98.0 The [facility] Comment on above: Order Comment: No: D o not add to previous draw Performed By: #### 5 0608 #### [facility] [address] [facility]. [address] Nucleated RBC/100 WBC (Bld) [Ratio] 0 % Normal 0-0 The [facility] Comment on above: Order Comment: No: D o not add to previous draw Performed By: #### 5 0608 #### [facility] [address] [place] [address], [facility] PLAT CNT 209 10*3/uL Normal 150-400 [facility] Comment on above: Order Comment: No: D o not add to previous draw Performed By: #### 5 0608 #### [facility] [address] RBC (Bld) [#/Vol] 4.37 10*6/uL Normal 3.80-5.00 The [facility] Comment on above: Order Comment: No: D o not add to previous draw Performed By: #### 5 0608 #### [facility] [address] [place] [address], [facility] WBC (Bld) [#/Vol] 5.97 10*3/uL Normal 4.00-10.60 The [facility] Comment on above: Order Comment: No: D o not add to previous draw Performed By: #### 5 0608 #### [facility] [address] TROPONIN-Ion 04-05-2020 Troponin I.cardiac [Mass/Vol] 0.07 ng/mL High 0.00-0.04 The [facility] Comment on above: Order Comment: This order is a replacement of the rejected order with accession number [id number]. Result Comment: REFE RENCE RANGES: 0.00 - 0.04 ng/ml NORMAL 0.05 - 0.50 ng/ml INDETERMINATE > 0.50 ng/ml CONSISTENT WITH AN M.I. Performed By: #### 3 5200 #### [facility] [address] [facility]. [address] Cardiovascular Lab Reporton 04-04-2020 Cardiovascular Lab Report [facility] Patient Name: Son Hubbard [facility] S MR #: [id number] Department of Physician: Clinton Ankit Jerri Doran M.D. Division of Service Date: 04/04/2020 Cardiology Birthdate: 1945 Adult Cardiovascular Room #: [facility] [address] [facility]. [place], [place] [address] Cardiovascular Laboratory Report INDICATION: Son Hubbard is a 75-year-old woman, who was recently evaluated in Cardiology Clinic after a recent admission to the [facility] with acute onset shortness of breath and finding on echocardiogram of possible severe mitral regurgitation. She continued to be symptomatic and was referred for further investigation of her recent onset symptoms by a transesophageal echocardiography that showed evidence of bdqc-gw-uakxhync mitral regurgitation. She was then referred for [...] informed consent. She was brought to the research lab assistant in a fasting state. The right neck area was prepped and draped in the usual fashion. Using micropuncture technique and ultrasound guidance, the right internal jugular vein was accessed. A 6-Greek x 11 cm sheath was placed. A 6-Greek Mendez catheter was used for right catheterization with measurement of pressures and calculation of cardiac output using the estimated Elizabeth method. Mendez catheter was removed. Modified Dom's test was favorable on the right. Access in the right radial artery was obtained using micropuncture technique. A 6-Greek x 11 cm Hydrophilic sheath was advanced. Verapamil was given through the sheath and heparin was administered intravenously. Bilateral selective coronary angiography was then performed using 5-Greek JR5 and 5-Greek multipurpose catheters for engagement of the right coronary artery and a 5-Greek JL3.5 diagnostic catheter for engagement of the left coronary artery. Catheters were removed. Additional heparin was given as needed and therapeutic ACT confirmed during the rest of the procedure. A 6-Greek XB3.0 guiding catheter was advanced and used [...] 11 atmospheres and post dilated using NC [employer] Curran 3.25 x 12 mm noncompliant balloon inflated [...] 2- (more content not included)... Normal [facility] *SARS-CoV-2 COVID-19on 03-31 SARS-CoV-2 (COVID-19) RNA ERICK+probe Ql (Unsp spec) Not detected Normal Not Detected The [facility] Comment on above: Order Comment: The A ptima SARS-CoV-2 assay is a nucleic acid amplification test intended for the qualitative detection of RNA from SARS-CoV-2 isolated and purified from nasopharyngeal (PARKING PATROLLER),oropharyngeal (OP), nasal swab, sputum, and bronchoalveolar lavage (BAL) specimens from patients with signs and symptoms of infection who are suspected of COVID-19. Results are for the identification of SARS-CoV-2 RNA. The SARS-CoV-2 RNA is generally detectable during the acute phase of infection. The Aptima SARS-CoV-2 Assay on the [employer] and [place] [employer] system is intended for use by laboratory personnel specifically instructed and trained in the operation of the [place] and [employer] system. The Aptima SARS-CoV-2 assay is [...] information. Performed By: #### 3 1792 #### [facility] [address] [facility] [place] [address], [facility] CONSULTATIONon 03-02-[address] [address] CONSULTATION PATIENT NAME: SON HUBBARD : 1945 MED REC NO: [id number] ROOM: R254 ACCOUNT NO: [id number] ADMIT DATE: 02/24/2019 PROVIDER: Francis Holguin MD [...] and S2 are normal. No murmurs appreciated. MANAGER INTERNATIONAL EXAMINATION: Pupils are equal and reactive. Eye [...] the patient. FRANCIS HOLGUIN MD [id number] Doc#: [id number] CC: Normal [facility] Homocysteineon 03-02-2019 Homocysteine 14.5 umol/L Normal 0.0-15.0 [facility] Comment on above: Performed By: #### P T #### [facility] [address] [facility] [place] [address] TSH w/out Reflexon 9 TSH Qn 3.890 uIU/mL Critically high 0.440-3.86 [facility] Comment on above: Performed By: #### P T #### [facility] [address] [facility] [place] [address] Vitamin B12 and Folateon Cobalamin (Vitamin B12) [Mass/Vol] 537 pg/mL Normal 232-1245 [facility] Comment on above: Performed By: #### P T #### [facility] [address] [address] Folate 11.6 ng/mL Normal 7.3-26.1 [facility] Comment on above: Result Comment: As o f 16, the methodology has changed. Results from this methodology should not be compared with results from previous methodology. Performed By: #### P T #### [facility] [address] [address] Urinalysis, reflex to cultur erik 02-28-2019 Bilirubin Ql (U) Negative Normal Negative [facility] Comment on above: Performed By: #### B MP #### [facility] [address] [place] [address] Clarity (U) Clear Normal Clear [facility] Comment on above: Performed By: #### B MP #### [facility] [address] [place] [address] Color (U) Yellow Normal Straw/Goshen [facility] Comment on above: Performed By: #### B MP #### [facility] [address] [place] [address] Glucose Ql (U) Negative Normal Negative [facility] Comment on above: Performed By: #### B MP #### [facility] [address] [place] [address] Hemoglobin Ql (U) Negative Normal Negative [facility] Comment on above: Performed By: #### B MP #### [facility] [address] [place] [address] Ketones Ql (U) Negative Normal Negative [facility] Comment on above: Performed By: #### B MP #### [facility] [address] [place] [address] Leukocyte esterase Test strip Ql (U) Negative Normal Negative [facility] Comment on above: Performed By: #### B MP #### [facility] [address] [place] [address] Nitrite Ql (U) Negative Normal Negative [facility] Comment on above: Performed By: #### B MP #### [facility] [address] [place] [address] pH (U) 7.0 [pH] Normal 5.0-9.0 [facility] Comment on above: Performed By: #### B MP #### [facility] [address] [place] [address] Protein Ql (U) Negative Normal Negative [facility] Comment on above: Performed By: #### B MP #### [facility] [address] [place] [address] Specific gravity (U) [Rel density] 1.007 Normal 1.005-1.03 [facility] Comment on above: Performed By: #### B MP #### [facility] [address] [place] [address] Urine Reflexed to Culture Not Indicated Normal [facility] Comment on above: Performed By: #### B MP #### [facility] [address] [place] [address] Urobilinogen Qn (U) 0.2 {Tyrel'U}/dL Normal < 2.0 [facility] Comment on above: Performed By: #### B MP #### [facility] [address] [place] [address] CBC With Platelet No Differe ntialon 02-25-2019 Erythrocyte distribution width (RBC) [Ratio] 13.5 % Normal 11.5-14.5 [facility] Comment on above: Performed By: #### B MP #### [facility] [address] [place] [address] Hematocrit (Bld) [Volume fraction] 33.3 % Low 37.0-47.0 [facility] Comment on above: Performed By: #### B MP #### [facility] [address] [place] [address] Hemoglobin (Bld) [Mass/Vol] 11.7 g/dL Low 12.0-16.0 [facility] Comment on above: Performed By: #### B MP #### [facility] [address] [place] [address] MCH (RBC) [Entitic mass] 33.0 pg Critically high 27.0-31.3 [facility] Comment on above: Performed By: #### B MP #### [facility] [address] [place] [address] MCHC (RBC) [Mass/Vol] 35.1 % Normal 33.0-37.0 [facility] Comment on above: Performed By: #### B MP #### [facility] [address] [place] [address] MCV (RBC) [Entitic vol] 94.1 fL Normal 82.0-100.0 [facility] Comment on above: Performed By: #### B MP #### [facility] [address] [place] [address] Platelets (Bld) [#/Vol] 180 10*3/uL Normal 130-400 [facility] Comment on above: Performed By: #### B MP #### [facility] [address] [place] [address] RBC (Bld) [#/Vol] 3.54 10*6/uL Low 4.20-5.40 [facility] Comment on above: Performed By: #### B MP #### [facility] [address] [place] [address] WBC (Bld) [#/Vol] 12.1 10*3/uL Critically high 4.8-10.8 [facility] Comment on above: Performed By: #### B MP #### [facility] [address] [place] [address] Basic Metabolic Panel Reflex Mgon 02-24-2019 Anion gap [Moles/Vol] 13 mmol/L Normal 9-15 [facility] Comment on above: Performed By: #### B MP #### [facility] [address] [place] [address] Calcium [Mass/Vol] 8.8 mg/dL Normal 8.5-9.9 [facility] Comment on above: Performed By: #### B MP #### [facility] [address] [place] [address] Chloride [Moles/Vol] 100 mmol/L Normal 95-107 [facility] Comment on above: Performed By: #### B MP #### [facility] [address] [place] [address] CO2 [Moles/Vol] 24 mmol/L Normal 20-31 [facility] Comment on above: Performed By: #### B MP #### [facility] [address] [place] [address] Creatinine [Mass/Vol] 0.96 mg/dL Critically high 0.50-0.90 [facility] Comment on above: Performed By: #### B MP #### [facility] [address] [place] [address] GFR/1.73 sq M predicted among blacks MDRD (S/P/Bld) [Vol rate/Area] mL/min/{1.73_m2} Normal >60 [facility] Comment on above: Result Comment: >60 mL/min/1.73m2 EGFR, calc. for ages 18 and older using the MDRD formula (not corrected for weight), is valid for stable renal function. Performed By: #### B MP #### [facility] [address] [place] [address] GFR/1.73 sq M.predicted MDRD (S/P/Bld) [Vol rate/Area] 57.0 mL/min/{1.73_m2} Low >60 [facility] Comment on above: Result Comment: >60 mL/min/1.73m2 EGFR, calc. for ages 18 and older using the MDRD formula (not corrected for weight), is valid for stable renal function. Performed By: #### B MP #### [facility] [address] [place] [address] Glucose [Mass/Vol] 146 mg/dL Critically high 70-99 M [facility] Comment on above: Performed By: #### B MP #### [facility] [address] [place] [address] Potassium reflex Mg 5.4 mEq/L Critically high 3.4-4.9 [facility] Comment on above: Performed By: #### B MP #### [facility] [address] [place] [address] Sodium [Moles/Vol] 137 mmol/L Normal 135-144 [facility] Comment on above: Performed By: #### B MP #### [facility] [address] [place] [address] Urea nitrogen [Mass/Vol] 18 mg/dL Normal 8-23 [facility] Comment on above: Performed By: #### B MP #### [facility] [address] [place] [address] CBC With Platelet and Differ entialon 02-24-2019 Basophils (Bld) [#/Vol] 0.0 10*3/uL Normal 0.0-0.2 [facility] Comment on above: Performed By: #### C BCWD #### [facility] [address] [place] [address] Basophils/100 WBC (Bld) 0.1 % Normal [facility] Comment on above: Performed By: #### C BCWD #### [facility] [address] [place] [address] Eosinophils (Bld) [#/Vol] 0.0 10*3/uL Normal 0.0-0.7 [facility] Comment on above: Performed By: #### C BCWD #### [facility] [address] [place] [address] Eosinophils/100 WBC (Bld) 0.0 % Normal [facility] Comment on above: Performed By: #### C BCWD #### [facility] [address] [place] [address] Erythrocyte distribution width (RBC) [Ratio] 13.4 % Normal 11.5-14.5 [facility] Comment on above: Performed By: #### C BCWD #### [facility] [address] [place] [address] Hematocrit (Bld) [Volume fraction] 34.6 % Low 37.0-47.0 [facility] Comment on above: Performed By: #### C BCWD #### [facility] [address] [place] [address] Hemoglobin (Bld) [Mass/Vol] 12.0 g/dL Normal 12.0-16.0 [facility] Comment on above: Performed By: #### C BCWD #### [facility] [address] [place] [address] Lymphocytes (Bld) [#/Vol] 0.9 10*3/uL Low 1.0-4.8 [facility] Comment on above: Performed By: #### C BCWD #### [facility] [address] [place] [address] Lymphocytes/100 WBC (Bld) 6.5 % Normal [facility] Comment on above: Performed By: #### C BCWD #### [facility] [address] [place] [address] MCH (RBC) [Entitic mass] 32.3 pg Critically high 27.0-31.3 [facility] Comment on above: Performed By: #### C BCWD #### [facility] [address] [place] [address] MCHC (RBC) [Mass/Vol] 34.7 % Normal 33.0-37.0 [facility] Comment on above: Performed By: #### C BCWD #### [facility] [address] [place] [address] MCV (RBC) [Entitic vol] 93.2 fL Normal 82.0-100.0 [facility] Comment on above: Performed By: #### C BCWD #### [facility] [address] [place] [address] Monocytes (Bld) [#/Vol] 1.4 10*3/uL Critically high 0.2-0.8 [facility] Comment on above: Performed By: #### C BCWD #### [facility] [address] [place] [address] Monocytes/100 WBC (Bld) 10.2 % Normal [facility] Comment on above: Performed By: #### C BCWD #### [facility] [address] [place] [address] Neutrophils (Bld) [#/Vol] 11.3 10*3/uL Critically high 1.4-6.5 [facility] Comment on above: Performed By: #### C BCWD #### [facility] [address] [place] [address] Neutrophils/100 WBC (Bld) 83.2 % Normal [facility] Comment on above: Performed By: #### C BCWD #### [facility] [address] [place] [address] Platelets (Bld) [#/Vol] 208 10*3/uL Normal 130-400 [facility] Comment on above: Performed By: #### C BCWD #### [facility] [address] [place] [address] RBC (Bld) [#/Vol] 3.71 10*6/uL Low 4.20-5.40 [facility] Comment on above: Performed By: #### C BCWD #### [facility] [address] [place] [address] WBC (Bld) [#/Vol] 13.7 10*3/uL Critically high 4.8-10.8 [facility] Comment on above: Performed By: #### C BCWD #### [facility] [address] [place] [address] Culture, Urineon 02-24-2019 Culture, Urine ORDERED BY: CHRISTIE REED SOURCE: Urine Clean Catch COLLECTED: 02/24/19 17:31 ANTIBIOTICS AT ELISEO.: RECEIVED : 02/24/19 17:31 Culture, Urine FINAL 02/26/19 08:22 No growth 24 hours Normal [facility] Comment on above: Performed By: #### B MP #### [facility] [address] [place] [address] POCT Glucoseon 02-24-2019 Glucose [Mass/Vol] 133 mg/dL Critically high 60-115 M [facility] Comment on above: Performed By: #### B MP #### [facility] [address] [place] [address] POC Performed on ACCU-CHEK Normal [facility] Comment on above: Performed By: #### B MP #### [facility] [address] [place] [address] Urinalysis, reflex to cultur erik 02-24-2019 Bilirubin Ql (U) Negative Normal Negative [facility] Comment on above: Performed By: #### B MP #### [facility] [address] [place] [address] Clarity (U) Clear Normal Clear [facility] Comment on above: Performed By: #### B MP #### [facility] [address] [place] [address] Color (U) Yellow Normal Straw/Goshen [facility] Comment on above: Performed By: #### B MP #### [facility] [address] [place] [address] Glucose Ql (U) Negative Normal Negative [facility] Comment on above: Performed By: #### B MP #### [facility] [address] [place] [address] Hemoglobin Ql (U) SMALL Abnormal Negative [facility] Comment on above: Performed By: #### B MP #### [facility] [address] [place] [address] Ketones Ql (U) Negative Normal Negative [facility] Comment on above: Performed By: #### B MP #### [facility] [address] [place] [address] Leukocyte esterase Test strip Ql (U) TRACE Abnormal Negative [facility] Comment on above: Performed By: #### B MP #### [facility] [address] [place] [address] Nitrite Ql (U) Negative Normal Negative [facility] Comment on above: Performed By: #### B MP #### [facility] [address] [place] [address] pH (U) 6.0 [pH] Normal 5.0-9.0 [facility] Comment on above: Performed By: #### B MP #### [facility] [address] [place] [address] Protein Ql (U) Negative Normal Negative [facility] Comment on above: Performed By: #### B MP #### [facility] [address] [place] [address] Specific gravity (U) [Rel density] 1.010 Normal 1.005-1.03 [facility] Comment on above: Performed By: #### B MP #### [facility] [address] [place] [address] Urine Reflexed to Culture YES Normal [facility] Comment on above: Performed By: #### B MP #### [facility] [address] [place] [address] Urobilinogen Qn (U) 0.2 {Tyrel'U}/dL Normal < 2.0 [facility] Comment on above: Performed By: #### B MP #### [facility] [address] [place] [address] Urine Microscopicon 02-25-20 19 Bacteria LM.HPF (Urine sed) [#/Area] Negative Normal [facility] Comment on above: Performed By: #### B MP #### [facility] [address] [place] [address] RBC (U) [#/Vol] 0-2 Normal 0-5 [facility] Comment on above: Performed By: #### B MP #### [facility] [address] [place] [address] Urine Epithelial Cells Auto 3-5 Normal 0-5 [facility] Comment on above: Performed By: #### B MP #### [facility] [address] [place] [address] Urine Hyaline Casts Auto 0-1 Normal 0-5 [facility] Comment on above: Performed By: #### B MP #### [facility] [address] [place] [address] Urine WBC Auto 6-10 Abnormal 0-5 [facility] Comment on above: Performed By: #### B MP #### [facility] [address] [place] [address] XR LUMBAR SPINE (2-3 VIEWS)o n 02-24-2019 [...] Ramón Bonds MD 02/24/19 Final result Normal [facility] Basic Metabolic Panel Reflex Mgon 02-23-2019 Anion gap [Moles/Vol] 14 mmol/L Normal 9-15 [facility] Comment on above: Performed By: #### B MPX #### [facility] [address] [place] [address] Calcium [Mass/Vol] 9.1 mg/dL Normal 8.5-9.9 [facility] Comment on above: Performed By: #### B MPX #### [facility] [address] [place] [address] Chloride [Moles/Vol] 106 mmol/L Normal 95-107 [facility] Comment on above: Performed By: #### B MPX #### [facility] [address] [place] [address] CO2 [Moles/Vol] 20 mmol/L Normal 20-31 [facility] Comment on above: Performed By: #### B MPX #### [facility] [address] [place] [address] Creatinine [Mass/Vol] 0.96 mg/dL Critically high 0.50-0.90 [facility] Comment on above: Performed By: #### B MPX #### [facility] [address] [place] [address] GFR/1.73 sq M predicted among blacks MDRD (S/P/Bld) [Vol rate/Area] mL/min/{1.73_m2} Normal >60 [facility] Comment on above: Result Comment: >60 mL/min/1.73m2 EGFR, calc. for ages 18 and older using the MDRD formula (not corrected for weight), is valid for stable renal function. Performed By: #### B MPX #### [facility] [address] [place] [address] GFR/1.73 sq M.predicted MDRD (S/P/Bld) [Vol rate/Area] 57.0 mL/min/{1.73_m2} Low >60 [facility] Comment on above: Result Comment: >60 mL/min/1.73m2 EGFR, calc. for ages 18 and older using the MDRD formula (not corrected for weight), is valid for stable renal function. Performed By: #### B MPX #### [facility] [address] [place] [address] Glucose [Mass/Vol] 139 mg/dL Critically high 70-99 M [facility] Comment on above: Performed By: #### B MPX #### [facility] [address] [place] [address] Potassium reflex Mg 4.6 mEq/L Normal 3.4-4.9 [facility] Comment on above: Performed By: #### B MPX #### [facility] [address] [place] [address] Sodium [Moles/Vol] 140 mmol/L Normal 135-144 [facility] Comment on above: Performed By: #### B MPX #### [facility] [address] [place] [address] Urea nitrogen [Mass/Vol] 20 mg/dL Normal 8-23 [facility] Comment on above: Performed By: #### B MPX #### [facility] [address] [place] [address] CBC With Platelet No Differe ntialon 02-23-2019 Erythrocyte distribution width (RBC) [Ratio] 13.4 % Normal 11.5-14.5 [facility] Comment on above: Performed By: #### C BCND #### [facility] [address] [place] [address] Hematocrit (Bld) [Volume fraction] 38.8 % Normal 37.0-47.0 [facility] Comment on above: Performed By: #### C BCND #### [facility] [address] [place] [address] Hemoglobin (Bld) [Mass/Vol] 13.6 g/dL Normal 12.0-16.0 [facility] Comment on above: Performed By: #### C BCND #### [facility] [address] [place] [address] MCH (RBC) [Entitic mass] 32.2 pg Critically high 27.0-31.3 [facility] Comment on above: Performed By: #### C BCND #### [facility] [address] [place] [address] MCHC (RBC) [Mass/Vol] 35.1 % Normal 33.0-37.0 [facility] Comment on above: Performed By: #### C BCND #### [facility] [address] [place] [address] MCV (RBC) [Entitic vol] 91.6 fL Normal 82.0-100.0 [facility] Comment on above: Performed By: #### C BCND #### [facility] [address] [place] [address] Platelets (Bld) [#/Vol] 212 10*3/uL Normal 130-400 [facility] Comment on above: Performed By: #### C BCND #### [facility] [address] [place] [address] RBC (Bld) [#/Vol] 4.24 10*6/uL Normal 4.20-5.40 [facility] Comment on above: Performed By: #### C BCND #### [facility] [address] [place] [address] WBC (Bld) [#/Vol] 8.3 10*3/uL Normal 4.8-10.8 [facility] Comment on above: Performed By: #### C BCND #### [facility] [address] [place] [address] FLUORO FOR SURGICAL PROCEDUR ESon 02-23-2019 FLUORO [...] Nona Yates MD 02/23/19 Final result Normal [facility] Surgical Specimenon 02-24-20 Surgical Specimen [facility] [address] [place] [id number] FINAL SURGICAL PATHOLOGY REPORT Patient Name: SON HUBBARD Accession No: [id number] Age Sex: 1945 Location: [facility] Account No: [id number] Collected: 02/23/2019 Med Rec No: [id number] Received: 02/24/2019 Attend Phys: FAN RAMIREZ Completed: [...] x 3.0 x 0.5 cm. Sections cash applications representative are submitted in three cassettes labeled A1 through A3 after a brief decalcification. ALIFA/SCDAN CPT: 00426 X1 06999 X1 CHIDI LUNA M.D. 02/26/2019 Electronically signed out by Page 1 of 1 [facility] Comment on above: Performed By: #### B MP #### [facility] [address] [place] [address] Basic Metabolic Panelon 02-08 Anion gap [Moles/Vol] 13 mmol/L Normal 9-15 [facility] Comment on above: Performed By: #### B MP #### [facility] [address] [place] [address] Calcium [Mass/Vol] 9.7 mg/dL Normal 8.5-9.9 [facility] Comment on above: Performed By: #### B MP #### [facility] [address] [place] [address] Chloride [Moles/Vol] 105 mmol/L Normal 95-107 [facility] Comment on above: Performed By: #### B MP #### [facility] [address] [place] [address] CO2 [Moles/Vol] 24 mmol/L Normal 20-31 [facility] Comment on above: Performed By: #### B MP #### [facility] [address] [place] [address] Creatinine [Mass/Vol] 1.00 mg/dL Critically high 0.50-0.90 [facility] Comment on above: Performed By: #### B MP #### [facility] [address] [place] [address] GFR/1.73 sq M predicted among blacks MDRD (S/P/Bld) [Vol rate/Area] mL/min/{1.73_m2} Normal >60 [facility] Comment on above: Result Comment: >60 mL/min/1.73m2 EGFR, calc. for ages 18 and older using the MDRD formula (not corrected for weight), is valid for stable renal function. Performed By: #### B MP #### [facility] [address] [place] [address] GFR/1.73 sq M.predicted MDRD (S/P/Bld) [Vol rate/Area] 54.3 mL/min/{1.73_m2} Low >60 [facility] Comment on above: Result Comment: >60 mL/min/1.73m2 EGFR, calc. for ages 18 and older using the MDRD formula (not corrected for weight), is valid for stable renal function. Performed By: #### B MP #### [facility] [address] [place] [address] Glucose [Mass/Vol] 93 mg/dL Normal 70-99 [facility] Comment on above: Performed By: #### B MP #### [facility] [address] [place] [address] Potassium [Moles/Vol] 4.1 mmol/L Normal 3.4-4.9 [facility] Comment on above: Performed By: #### B MP #### [facility] [address] [place] [address] Sodium [Moles/Vol] 142 mmol/L Normal 135-144 [facility] Comment on above: Performed By: #### B MP #### [facility] [address] [place] [address] Urea nitrogen [Mass/Vol] 20 mg/dL Normal 8-23 [facility] Comment on above: Performed By: #### B MP #### [facility] [address] [place] [address] CBC With Platelet No Differe ntialon 02-22-2019 Erythrocyte distribution width (RBC) [Ratio] 13.2 % Normal 11.5-14.5 [facility] Comment on above: Performed By: #### C BCND #### [facility] [address] [place] [address] Hematocrit (Bld) [Volume fraction] 39.9 % Normal 37.0-47.0 [facility] Comment on above: Performed By: #### C BCND #### [facility] [address] [place] [address] Hemoglobin (Bld) [Mass/Vol] 14.1 g/dL Normal 12.0-16.0 [facility] Comment on above: Performed By: #### C BCND #### [facility] [address] [place] [address] MCH (RBC) [Entitic mass] 32.5 pg Critically high 27.0-31.3 [facility] Comment on above: Performed By: #### C BCND #### [facility] [address] [place] [address] MCHC (RBC) [Mass/Vol] 35.3 % Normal 33.0-37.0 [facility] Comment on above: Performed By: #### C BCND #### [facility] [address] [place] [address] MCV (RBC) [Entitic vol] 92.2 fL Normal 82.0-100.0 [facility] Comment on above: Performed By: #### C BCND #### [facility] [address] [place] [address] Platelets (Bld) [#/Vol] 206 10*3/uL Normal 130-400 [facility] Comment on above: Performed By: #### C BCND #### [facility] [address] [place] [address] RBC (Bld) [#/Vol] 4.33 10*6/uL Normal 4.20-5.40 [facility] Comment on above: Performed By: #### C BCND #### [facility] [address] [place] [address] WBC (Bld) [#/Vol] 5.9 10*3/uL Normal 4.8-10.8 [facility] Comment on above: Performed By: #### C BCND #### [facility] [address] [place] [address] Partial Thromboplastin Timeo n 02-22-2019 aPTT Coag (Bld) [Time] 36.9 s Critically high 24.4-36.8 [facility] Comment on above: Result Comment: Effe ctive 02/18/2019: Please note methodology and/or reference ranges have changed. Performed By: #### P TT #### [facility] [address] [place] [address] Prothrombin Timeon 9 INR Coag (PPP) [Relative time] 0.9 {INR} Normal [facility] Comment on above: Result Comment: Warf esther Therapy INR Therapeutic: 2.0-3.0 With Mechanical Valve: >2.5 Low-intensity Therapeutic Range: 1.5-2.0 Mod-intensity Therapeutic Range: 2.0-3.0 High-intensity Therapeutic Range: 2.5-3.5 HIgh-intensity Therapeutic Range: 3.0-4.0 Common Critical/Alarm Value: 5.0 Common Upper Limit Reported: 10.0 Effective 02/18/2019: Please note methodology and/or reference ranges have changed. Performed By: #### P T #### [facility] [address] [place] [address] PT Coag (PPP) [Time] 12.6 s Normal 12.3-14.9 [facility] Comment on above: Result Comment: Effjoel ctive 02/18/19 Please note methodology and/or reference ranges have changed. Performed By: #### P T #### [facility] [address] [place] [address] Type and Screen Capture 3 sc rn cellon 02-22-2019 Type and Screen Capture 3 scrn cell PATIENT: INEZ Wilson LOC: [facility] BILL# : [id number] : 1945 SEX: F ORDERED BY: RISSA Hale ORDERED : 02/22/2019 07:32 COLLECTED: 02/22/2019 09:40 ORDER : [id number] RECEIVED : 02/22/2019 09:40 Confirmation type needs to be drawn. --------- TEST NAME RESULT UNITS RANGES ABN FL ST ABORH Capture O NEG F Antibody 3 Cell Scrn Captu NEG F -------- Normal [facility] Comment on above: Performed By: #### T S3C #### [facility] [address] [place] [address] XR SPINE ENTIRE (2-3 VIEWS)o n 02-22-2019 [...] Hope Rapp MD 02/23/19 Final result Normal [facility] No Panel Information [facility] Encounters Encounter Date Encounter Type Care Provider Facility Start: 09-16-2023 Orders Only Shravan rodríguez MD Work Phone: Cardiology Comment on above: Hypertension, unspec ified type (Primary Dx); Coronary artery disease involving big sandy coronary artery of big sandy heart, unspecified whether angina present; Hyperlipidemia, unspecified hyperlipidemia type Start: 09-03-2023 End: 09-03-2023 ambulatory [facility] Start: 08-06-2023 End: 08-07-2023 ambulatory [facility] Start: 07-08-2023 End: 07-09-2023 ambulatory [facility] Start: 06-11-2023 End: 06-11-2023 ambulatory Referral Self Facility:[facility] Start: 06-11-2023 End: 06-11-2023 ambulatory MD Pat Newell Work Phone: [facility] Work Phone: Start: 06-11-2023 End: 06-11-2023 Patient encounter procedure MD Pat Newell Work Phone: [facility] Work Phone: Start: 03-28-2023 End: 03-28-2023 [facility] Start: 11-12-2022 End: 11-13-2022 ambulatory MADELYN DICKSON Facility:[facility] Start: 10-18-2022 End: 10-18-2022 ambulatory PAT NEWELL Facility:[facility] Start: 10-10-2022 End: 10-10-2022 ambulatory PAT NEWELL Facility:[facility] Start: 10-10-2022 End: 10-10-2022 Patient encounter [...] 06-10-2022 ambulatory MD Pat Newell Work Phone: [facility] Work Phone: Start: 06-10-2022 End: 06-10-2022 Patient encounter procedure MD Pat Newell Work Phone: [facility] Start: 05-15-2022 End: 05-15-2022 ambulatory MYLENE ALMEIDA Facility:[facility] Start: 05-02-2022 End: 05-02-2022 ambulatory MYLENE ALMEIDA Facility:[facility] Start: 05-02-2022 End: 05-02-2022 Patient encounter procedure Mylene Almeida MD Work Phone: Ophthalmology Comment on above: S/P cataract extract ion and insertion of intraocular lens, left (Primary Dx) Start: 05-01-2022 End: 05-02-2022 ambulatory NAILA Marlin CEDILLO Facility:[facility] Start: 05-01-2022 End: 05-01-2022 Patient encounter procedure Naila Cedillo OD Work Phone: Ophthalmology Comment on above: Superficial punctate keratitis of left eye (Primary Dx); Pseudophakia Start: 05-01-2022 End: 05-01-2022 ambulatory MYLENE ALMEIDA Facility:[facility] Start: 04-24-2022 End: 04-24-2022 ambulatory MYLENE ALMEIDA Facility:[facility] Start: 04-24-2022 Encounter for other preprocedural examination MYLENE ALMEIDA [facility] Start: 04-24-2022 End: 04-24-2022 Patient encounter [...] Start: 03-07-2022 End: 03-07-2022 ambulatory PAT NEWELL Facility:[facility] Start: 01-11-2022 Telephone encounter Mylene henderson MD Work Phone: Ophthalmology Comment on above: Appointment Start: 05-11-2020 End: 05-12-2020 ambulatory PAT NEWELL Facility:[facility] Start: 04-04-2020 End: 04-05-2020 ambulatory PAT NEWELL Facility:[facility] Start: 02-24-2019 End: 03-05-2019 Evaluation and management of inpatient CHRISTIE REED [facility] Start: 02-23-2019 End: 02-24-2019 Evaluation and management of inpatient FAN RAMIREZ [facility] Start: 02-23-2019 End: 02-26-2019 Patient encounter procedure FAN RAMIREZ [facility] Start: 02-22-2019 End: 02-24-2019 Patient encounter procedure FAN RAMIREZ [facility] Start: 02-22-2019 End: 02-27-2019 Patient encounter procedure FAN [facility]ana [facility] Procedures Date Procedure Procedure Detail Performing [...] ASHLEY Start: 03-03-2019 INCENTIVE SPIROMETRY RT FAN ASHLYE Start: 03-03-2019 INCENTIVE SPIROMETRY RT FAN ASHLEY [...] INCENTIVE SPIROMETRY RT FAN ASHLEY Start: 02-25-2019 HALAL MEAT PACKER EVAL AND TREAT FAN Y OO Start: [...] FAN ASHLEY Start: 02-24-2019 MEASURE WEIGHT FAN SAHLEY Start: 02-24-2019 NOTIFY PHYSICIAN (SPECIFY) FAN ASHLEY [...] Start: 02-22-2019 Thromboplastin time partial plasma/whole blood AFN ASHLEY Start: 02-22-2019 Basic metabolic pane l calcium total FAN ASHLEY Start: 02-22-2019 TYPE AND SCREEN FAN ASHLEY Start: 02-22-2019 Ecg routine ecg w/le ast 12 lds w/i&r FAN ASHLEY Start: 06-14-2016 Adult depression scr eening assessment Mylene Wayne MD Work Phone: Plan of Treatment Date Care Activity Detail Author Start: 08-11-2023 Advance Directive Discussion Advance Directive Discussion [facility] Start: 08-11-2023 Depression Assessment Depression Ass essment [facility] Start: 04-11-2023 Covid-19 Vaccine () Covid-19 Vaccine () [facility] Start: 04-11-2023 Influenza vaccination Influenza Vacc ine (#1) [facility] Start: 03-07-2023 End: 08-29-2023 IOL BIOMETRY W/ IOL CALC OU (BOTH EYES) IOL BIOMETRY W/ IOL CALC OU (BOTH EYES) OPHT Imaging Routine Combined forms of age-related cataract of both eyes Expected: 03/07/2023, Expires: 08/29/2023 [facility] Work Phone: Comment on above: Expected: 03/07/2023 , Expires: 08/29/2023 Start: 08-11-2022 ADVANCE DIRECTIVE DISCUSSION ADVANCE DIRECTIVE DISCUSSION [facility] Start: 07-09-2022 COVID-19 VACCINE (4 - Booster for Pfizer series) COVID-19 VACCINE (4 - Booster for Pfizer series) [facility] Start: 05-03-2022 COVID-19 VACCINE (4 - Booster for Pfizer series) COVID-19 VACCINE (4 - Booster for Pfizer series) [facility] Start: 04-11-2022 Influenza vaccination C [facility] Start: 02-24-2022 Diabetes Screening Diabetes Screenin g [facility] Start: 08-11-2021 ADVANCE DIRECTIVE DISCUSSION ADVANCE DIRECTIVE DISCUSSION [facility] Start: 03-01-2021 COVID-19 VACCINE (3 - Booster for Pfizer series) COVID-19 VACCINE (3 - Booster for Pfizer series) [facility] Start: 06-20-2019 DIABETES SCREEN DIABETES SCREEN [facility] Start: 05-28-2018 Pneumococcal Vaccine : 65+ (2 of 2 - PCV) Pneumococcal Vaccine: 65+ (2 of 2 - PCV) [facility] Start: 06-14-2017 Adult depression screening assessment DEPRESSION SCREENING [facility] Start: 05-30-2013 PNEUMOCOCCAL: 65+ (2 - PCV) PNEUMOCOCCAL: 65+ (2 - PCV) [facility] Start: 2011 BONE DENSITY BONE DENSITY [facility] Start: 2011 Screening for osteoporosis Bone Density Screening [facility] Start: 2006 RSV Vaccine (1 - 1-d ose 60+ series) RSV Vaccine (1 - 1-dose 60+ series) [facility] Start: 01-22-1996 SHINGRIX VACCINE (1 of 2) SHINGRIX VACCINE (1 of 2) [facility] Start: 1991 COLOGUARD (FIT-DNA) COLOGUARD (FIT-D NA) [facility] Start: 1991 Colonoscopy COLONOSCOPY [facility] Start: 1991 COLORECTAL CANCER SCREENING COLORECTAL CANCER SCREENING [facility] Start: [address] COLONOGRAPHY [facility] Start: 1991 FECAL OCCULT BLOOD FECAL OCCULT BLOO D [facility] Start: 1991 LIPID SCREEN LIPID SCREEN [facility] Start: 1991 SIGMOIDOSCOPY SIGMOIDOSCOPY [facility] Start: 1965 Urine microalbumin profile [facility] Start: 01-22-1964 ANNUAL PCP TEAM GENDER STUDIES PROFESSOR KALA DISEASE VISIT ANNUAL PCP TEAM CHRONIC DISEASE VISIT [facility] Start: 01-22-1964 BP CONTROLLED (<130/80) BP CONTROLLE D (<130/80) [facility] Start: 01-22-1964 Hepatitis B surface antibody level LDL CHOLESTEROL [facility] Start: 01-22-1964 HEPATITIS C SCREENING HEPATITIS C [facility] Start: 01-22-1964 Hepatitis C screening Hepatitis C [facility] Start: 1958 Adult depression screening assessment DEPRESSION SCREENING [facility] Start: 1951 COVID-19 VACCINE (#1) COVID-19 VACCI NE (#1) [facility] CORNEAL TOPOGRAPHY PENTACAM OU (BOTH EYES) CORNEAL TOPOGRAPHY PENTACAM OU (BOTH EYES) OPHT Imaging Routine Combined forms of age-related cataract of both eyes 04/24/2022 12:46 PM EDT [facility] Work Phone: End: 09-16-2024 ECG COMPLETE ECG COMPLETE ECG Routine Hypertension, unspecified type Coronary artery disease involving big sandy coronary artery of big sandy heart, unspecified whether angina present Hyperlipidemia, unspecified hyperlipidemia type 1 Occurrences starting 09/16/2023 until 09/16/2024 [facility] Work Phone: Comment on above: 1 Occurrences starti ng 09/16/2023 until 09/16/2024 [facility] Immunizations Immunization Date Immunization Notes Care Provider Fa cility 08-27-2022 influenza virus vacc ine, unspecified formulation Shravan Buchanan MD Work Phone: [facility] 05-30-2012 influenza virus vacc ine, unspecified formulation Mylene Wayne MD Work Phone: [facility] 05-30-2012 pneumococcal polysaccharide vaccine, 23 valent Mylene Wayne MD Work Phone: [facility] Payers Date Payer Category Payer Self-pay [id number] 2019 Private Health Insurance [id number] 2019 Private Health Insurance DAJUAN MARTINSA MEDICARE SUPPLEMENT [id number] 2019-Present [phone] [address] [place] [address] Indemnity [id number] 2019 Private Health Insurance CIGKENDRICK MARTINSA MEDICARE SUPPLEMENT [id number] 2019-Present [phone] [address] [place] [address] Indemnity [id number] 2016 Medicare [id number] 2016 Private Health Insurance [id number] 2011 Medicare MEDICARE MEDICAR E A AND B [id number] 2011-Present [phone] [place] [address] Medicare [id number] 2011 Medicare MEDICARE MEDICAR E A AND B [id number] 2011-Present [phone] [place] [address] Medicare [id number] 1959 Medicare [id number] 1959 Private Health Insurance [id number] 1946 Unknown [id number] 1946 Unknown [id number] .182 1946 Unknown [id number] .182 1946 Unknown [id number] .182 1946 Unknown [id number] .182 1946 Unknown [id number] .182 1946 Unknown [id number] .647 1946 Unknown [id number] .647 1946 Unknown [id number] .593 1946 Unknown [id number] .593 1946 Unknown [id number] .593 1946 Unknown [id number] [id number] .593 1946 Unknown [id number] .593 Unknown [id number] .[id number] Social History Date Type Detail Facility Start: 04-28-2012 End: 04-24-2022 Tobacco smoking status NHIS Ex-smoker [facility] End: 04-28-1990 History of tobacco use Current smoker [facility] End: 04-28-1990 History of tobacco use Cigarette Smoker [facility] Start: 04-28-2012 End: 09-06-2022 Cigarettes smoked current (pack per day) - Reported 0.7 [facility] Start: 06-14-2016 End: 10-18-2022 Alcohol intake Current non-drinker of alcohol (finding) [facility] Start: 1945 Sex Assigned At Not on file [facility] Start: 04-24-2022 Tobacco use and exposure Former smokeless tobacco user [facility] Work Phone: Start: 04-07-2022 End: 05-01-2022 Exposure to SARS-CoV-2 (event) Not sure [facility] Work Phone: Start: 1945 Sex Assigned At Female F [facility] Start: 09-06-2022 End: 10-18-2022 Tobacco use panel [facility] National Score (1-10 0), lower number is lower risk 70 [facility] Medical Equipment Procedure Code Equipment Code Equipment Original Text Equipment Identifier Dates Elan Bn Smpx P Radpq Fd Strl - [id number] Start: 05-27-2012 Sys Bncmnt Prep Kt Plg Brsh - [id number] Start: 05-27-2012 Comment on above: Description: CEMENT RESTRICTOR Stem Fem 50mm 12mm Elan Trthln - [id number] Start: 05-27-2012 Comment on above: Description: cemente d stem Aug Tib 10mm Trthln 3 Rt - [id number] Start: 05-27-2012 Comment on above: Description: AUGMENT Comp Fem 3 Rt Kn Total Stab - [id number] Start: 05-27-2012 Comment on above: Description: TS FEMU R Ins Tib 3 13mm K n X3 Cs Trthln - [id number] Start: 05-27-2012 Comment on above: Description: CS INSE RT Comp Pat 10mm 32mm Asym Trthln - [id number] Start: 05-27-2012 Comment on above: Description: PATELLA Baseplt Tib Trthln 3 Kn Total - [id number] Start: 05-27-2012 Comment on above: Description: UNIVERS AL BASEPLATE Lens Iol 0d +19. 5 Talat Uv Abs - [id number] Start: 05-01-2022 Comment on above: Description: -1.52 Lens Iol 0d +18 Talat Uv Abs - [id number] Start: 05-15-2022 Comment on above: Description: -0.34 Clinical Notes 01-16-2022 to 09-03-2023 Patient Sebastian Almeida V, MD - 10/10/2022 12:24 PM Lenin Murphy OD - 10/10/2022 11:44 AM Mark Almeida V, MD - 05/02/2022 10:44 AM EDT Note Date & Type Note Facility 09-03-2023 Note [place] Cardiology - [facility] Subjective Son Hubbard is a 78 y.o. year old female patient being seen for follow up VIOLA. C/o extreme tiredness . Denies chest pain, SOB, and palpitations. 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 The initial [...] June 2023 she was admitted to the [facility] with worsening shortness of breath and fatigue. [...] Inhibitors Amlodipine Swell (more content not included)... [facility] 08-06-2023 Note Patient: Son arguelles Procedure Information Date/Time: 08/06/23 1030 Procedure: TRANSESOPHAGEAL ECHO (VIOLA) Location: [facility] Clinical information reviewed: Allergies Meds Physical Exam Airway Mallampati: II TM distance: >3 FB Neck ROM: full Cardiovascular Dental Pulmonary Abdominal Anesthesia Plan ASA 2 other (Moderate sedation) Additional Equipment Requests [facility] 07-08-2023 Note Patient here for [facility] low up [facility] for SOB and chest pain. She was started on isosorbide. She is scheduled for outpatient stress test next week. She denies chest pain. SOB is improving. C/o LE edema which resolves by morning. C/o fatigue. Review of Systems Cardiovascular: Positive for leg swelling. All other systems reviewed and are negative. [facility] 07-08-2023 Note Cardiovascular Medic ine [facility] SUBJECTIVE Chief Complaint Patient presents with Fatigue Congestive Heart Failure Edema Shortness of Breath Son Hubbard is a 78 y.o. female here for hospital follow-up. HPI She started to have feeling of chest congestion around 06/21/2023 (this was similar to how she felt prior to her stent placement) and she presented to [facility]. She states she was having SOB [...] March 2020 she was admitted to the [facility] with worsening shortness of breath. The initial [...] Mitral valve regurgitation Coronary artery disease involving big sandy coronary artery of big sandy heart without angina pectoris Primary hypertension Nonrheumatic [...] Rfl: liothyronine ( (more content not included)... [facility] 03-28-2023 Note [place] [facility]iology - [facility] Subjective Son Hubbard is a 78 y.o. year old female patient being seen for Follow-up (6 MONTH FOLLOW UP ) Patient Active Problem List Diagnosis Mitral valve regurgitation Coronary artery disease involving big sandy coronary artery of big sandy heart without angina pectoris Primary hypertension Nonrheumatic [...] March 2020 she was admitted to the [facility] with worsening shortness of breath. The initial [...] tablet, TAKE 1 (more content not included)... [facility] 10-18-2022 Note HNO ID: [id number] Author: Steph Murphy, JOAQUIM Service: ? Author Type: FUNERAL COUNSELOR Type: Progress Notes Filed: 10/18/2022 10:33 AM [...] Murphy, OD October 18, 2022 10:31 AM [facility] 10-10-2022 Note HNO ID: [id number] Author: Mylene Almeida V, MD Service: ? [...] patient was offered a surgery/procedure at a [facility] facility. The surgeon/proceduralist and patient [...] MD October 10, 2022 12:24 PM [facility] 10-10-2022 Note HNO ID: [id number] Author: Steph Murphy OD Service: ? Author Type: FUNERAL COUNSELOR Type: Progress Notes Filed: 10/10/2022 12:30 PM Note Text: ASSESSMENT/PLAN: 1. PCO (posterior capsular opacification), bilateral - ICD9: 366.50, ICD10: H26.493 (primary diagnosis) 2. Pseudophakia of both eyes - ICD9: V43.1, ICD10: Z96.1 Four months s/p PEcIOLs Monovisioon OD dist and OS near Pt still wearing Pre-op specs + Glare and halo signs and/or symptoms YAG evaluation with Dr yMlene Almeida today Recommend current/updated spec Rx for [...] OD October 10, 2022 11:45 AM [facility] 10-10-2022 Instructions Mylene Almeida V, MD [...] so we recommend you come with a frontload driver. You will then be scheduled for a follow up in approximately one week. If you notice any of the following symptoms of retinal detachment, please call our office at : - Flashes of light - Increased number of floaters or large floaters - Curtains, veils, or spider web pattern over vision documented in this encounter [facility] 10-10-2022 History of Present illness [...] patient was offered a surgery/procedure at a [facility] facility. The surgeon/proceduralist and patient [...] 2022 11:45 AM documented in this encounter [facility] 05-02-2022 Note HNO ID: [id number] Author: Mylene Almeida V, MD Service: ? [...] MD May 02, 2022 10:44 AM [facility] 05-02-2022 History of Present illness Narrative [...] 2022 10:44 AM documented in this encounter [facility] 05-01-2022 Note HNO ID: [id number] Author: Naila Cedillo, JOAQUIM Service: ? Author Type: FUNERAL COUNSELOR Type: Progress Notes Filed: 05/02/2022 7:54 AM [...] Hunter, OD May 01, 2022 6:05 PM [facility] 05-01-2022 History of Present illness Narrative [...] 2022 6:05 PM documented in this encounter [facility] 04-24-2022 Note HNO ID: [id number] Author: CHRISTAL Calles Service: ? Author Type: Cinder Dump Crane Operator Type: Progress Notes Filed: 04/24/2022 12:47 PM Note Text: Confirmed Aim: -1.50 OS, Amelia OD CHRISTAL Calles April 24, 2022 12:46 PM [facility] 04-24-2022 History of Present illness Narrative Confirmed Aim: -1.50 OS, Amelia OD CHRISTAL Calles April 24, 2022 12:46 PM documented in this encounter [facility] 03-07-2022 Note HNO ID: [id number] Author: Mylene Almeida V, MD Service: ? [...] and surgery - Comanage with Dr Wilson; [facility] POD #1 Cataract Presurgical Documentation Cataract: Both [...] patient was offered a surgery/procedure at a [facility] facility. The surgeon/proceduralist and patient [...] MD March 07, 2022 1:25 PM [facility] 03-07-2022 Note HNO ID: [id number] Author: Marian Arroyo, JOAQUIM Service: ? Author Type: FUNERAL COUNSELOR Type: Progress Notes Filed: 03/07/2022 1:34 PM [...] JOAQUIM March 07, 2022 12:59 PM [facility] 03-07-2022 History of Present illness Narrative [...] and surgery - Comanage with Dr Wilson; [facility] POD #1 Cataract Presurgical Documentation Cataract: Both [...] patient was offered a surgery/procedure at a [facility] facility. The surgeon/proceduralist and patient [...] 2022 12:59 PM documented in this encounter [facility] 01-16-2022 Miscellaneous Notes Patient has been rescheduled with Dr. Almeida for March 07 in [place] Patient called Appointment Center and was scheduled with Dr. Taylor. We are waiting to confirm from Dr. Wilson office if it is ok for patient to stay scheduled with or to call and reschedule with Dr. Almeida LVM for patient to schedule at Cataract Evaluation with Dr. Almeida in [place] per faxed referral from Dr. Wilson. First attempt 01/11/22. Referral scanned into chart. documented in this encounter [facility] Evaluation note Diagnosis Combined forms of age-related cataract of both eyes- Primary Other and combined forms of senile cataract Posterior vitreous detachment of right eye Vitreous degeneration [facility] Diagnosis Combined forms of age-related cataract of both eyes- Primary Other and combined forms of senile cataract [facility] [place] Diagnosis Combined forms of age-related cataract of both eyes Other and combined forms of senile cataract Combined forms of age-related cataract of both eyes Other and combined forms of senile cataract Combined forms of age-related cataract of both eyes Other and combined forms of senile cataract [facility] Diagnosis Superficial punctate keratitis of left eye- Primary Pseudophakia Lens replaced by other means Combined forms of age-related cataract of both eyes Other and combined forms of senile cataract [facility] Diagnosis S/P cataract extraction and insertion of intraocular lens, left- Primary Combined forms of age-related cataract of both eyes Other and combined forms of senile cataract [facility] Work [facility]: Evaluation note* Diagnosis PCO (posterior capsular opacification), bilateral- Primary After-cataract, unspecified Pseudophakia of both eyes Lens replaced by other means Vitreous degeneration, 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 Other retinal disorders documented in this encounter [facility] note* Diagnosis Hypertension, unspecified type- Primary Coronary artery disease involving big sandy coronary artery of big sandy heart, unspecified whether angina present Hyperlipidemia, unspecified hyperlipidemia type documented in this encounter [facility] for referral (narrative)* Outpatient Procedure (Routine) - Authorized Specialty Diagnoses / Procedures Referred By Contac t Referred To Contact [facility] Diagnoses Hypertension, unspecified type Coronary artery disease involving big sandy coronary artery of big sandy heart, unspecified whether angina present Hyperlipidemia, unspecified hyperlipidemia type Procedures ECG COMPLETE ECG ROUTINE ECG W/LEAST 12 LDS W/I&R Shravan Buchanan MD [address] [place] [address] [facility] [place] [address] Referral ID Status Reason Start Date Expiration Date Visits Requested Visits Authorized [id number] Authorized Auto-Generat ed Referral 09/16/2023 09/15/2024 1 1 [facility] Summary Purpose Family History No Family [...] section and content) DATE CREATED AUTHOR 03/05/2019 [facility] DATE CREATED AUTHOR AUTHOR'S ORGANIZ ATION 03/13/2021 [facility] DATE CREATED AUTHOR AUTHOR'S ORGANIZ ATION 10/19/2022 [facility] DATE CREATED AUTHOR AUTHOR'S ORGANIZ ATION 11/18/2022 [facility] DATE CREATED AUTHOR AUTHOR'S ORGANIZ ATION 06/18/2023 [facility] DATE CREATED AUTHOR AUTHOR'S ORGANDOREEN ATION 09/23/2023 [facility] Source Comments (unrecognize d section and content) In the event this informatio n is protected by the Federal Confidentiality of Alcohol and Drug Abuse Patient Records regulations: The Federal rules restrict any use of the information to criminally investigate or prosecute any alcohol or drug abuse patient.[facility] the event this information is protected by the Federal Confidentiality of Alcohol and Drug Abuse Patient Records regulations: The Federal rules restrict any use of the information to criminally investigate or prosecute any alcohol or drug abuse patient.[facility] the event this information is protected by the Federal Confidentiality of Alcohol and Drug Abuse Patient Records regulations: The Federal rules restrict any use of the information to criminally investigate or prosecute any alcohol or drug abuse patient.[facility] the event this information is protected by the Federal Confidentiality of Alcohol and Drug Abuse Patient Records regulations: The Federal rules restrict any use of the information to criminally investigate or prosecute any alcohol or drug abuse patient.[facility] the event this information is protected by the Federal Confidentiality of Alcohol and Drug Abuse Patient Records regulations: The Federal rules restrict any use of the information to criminally investigate or prosecute any alcohol or drug abuse patient.[facility] the event this information is protected by the Federal Confidentiality of Alcohol and Drug Abuse Patient Records regulations: The Federal rules restrict any use of the information to criminally investigate or prosecute any alcohol or drug abuse patient.[facility] the event this information is protected by the Federal Confidentiality of Alcohol and Drug Abuse Patient Records regulations: The Federal rules restrict any use of the information to criminally investigate or prosecute any alcohol or drug abuse patient.[facility] the event this information is protected by the Federal Confidentiality of Alcohol and Drug Abuse Patient Records regulations: The Federal rules restrict any use of the information to criminally investigate or prosecute any alcohol or drug abuse patient.[facility] Reason for Visit (unrecogniz ed [...] ovider Active Referral Self Attending Provider Active Patient Manager Relationship Specialty Start Date End Date Pat Newell MD PCP - General Family Practice 03/30/12 Patient Manager Relationship Specialty Start Date End Date Pat Newell MD PCP - General Family Practice 03/30/12 Patient Manager Relationship Specialty Start Date End Date Pat Newell MD PCP - General Family Practice 03/30/12 Patient Manager Relationship Specialty Start Date End Date Pat Newell MD PCP - General Family Practice 03/30/12 Patient Manager Relationship Specialty Start Date End Date Pat Newell MD PCP - General Family Medicine 03/30/12 Patient Manager Relationship Specialty Start Date End Date Pat Newell MD PCP - General Family Medicine 03/30/12 Patient Manager Relationship Specialty Start Date End Date Pat Newell MD PCP - General Family Medicine 03/30/12 Patient Manager Relationship Specialty Start Date End Date Pat [...] BE BASED ON THE PRIMARY CLINICAL RECORDS. [facility] [employer] [facility]. provides no warranty or guarantee of the accuracy or completeness of information in this document.
--- NOTE | 2023-10-02 19:44 | ED.GENADUL1 ---
HPI - General Adult General Chief complaint: Chest Pain Stated complaint: pt states she has atrial fib Time Seen by Provider: 10/02/23 19:40 Source: patient Mode of arrival: walk-in Limitations: no limitations History of Present Illness HPI narrative: patient recently discharged from hospital 2-3 days ago after admission for A. Fib with RVR. Was treated with amiodarone and also given dose of cardiazem. She converted to NSR during observation admission. Cardiazem not continued due to past adverse reaction to Cardizem. She now returns complaining of heart racing . No chest pain or tight ness. She is not light headed. no associated nausea. She was started on Amiodarone 200bid and eliquis with her last admission Related Data Home Medications Medication Instructions Recorded Confirmed atorvastatin 40 mg tablet 40 mg PO DAILY 06/19/23 10/03/23 escitalopram oxalate 10 mg tablet 10 mg PO DAILY 06/19/23 10/03/23 (Lexapro) loperamide 2 mg capsule 2 mg PO DAILY 06/19/23 10/03/23 (Anti-Diarrheal (loperamide)) losartan 100 mg tablet (Cozaar) 100 mg PO DAILY 06/19/23 10/03/23 pantoprazole 40 mg tablet,delayed 40 mg PO DAILY 06/19/23 10/03/23 release vitamin A-vitamin C-vit E-min 1 tab PO DAILY 06/19/23 10/03/23 tablet (Vision tablet) cephalexin 500 mg capsule 500 mg PO Q12H UTI 10/03/23 10/03/23 hydralazine 25 mg tablet 25 mg PO DAILY 10/03/23 10/03/23 Previous Rx's Medication Instructions Recorded benzonatate 200 mg capsule 200 mg PO TID PRN cough #60 caps 06/20/23 isosorbide mononitrate 30 mg 30 mg PO Q24H #30 tabs 06/20/23 tablet,extended release 24 hr liothyronine 5 mcg tablet 5 mcg PO QD #30 tabs 06/20/23 promethazine 12.5 mg tablet 6.25 mg (1/2 x 12.5 mg) PO TID PRN 08/09/23 nausea and vomiting #7 tabs apixaban 5 mg tablet (Eliquis) 5 mg PO BID #60 tabs 09/30/23 amiodarone 200 mg tablet (Pacerone) 400 mg (2 x 200 mg) PO BID #120 10/03/23 tabs Allergies Allergy/AdvReac Type Severity Reaction Status Date / Time SERINA Inhibitors Allergy Severe Verified 10/02/23 19:36 diltiazem Allergy Severe shortness Verified 10/02/23 19:36 of breath gabapentin [From Neurontin] Allergy Severe Verified 10/02/23 19:36 metoprolol Allergy Severe Verified 10/02/23 19:36 amlodipine AdvReac Severe swelling Verified 10/02/23 19:36 morphine AdvReac Severe Nausea Verified 10/02/23 19:36 Review of Systems ROS Status of ROS 10 or more systems reviewed and unremarkable except as noted in history and below PFSH PFS Medical History (Updated 10/04/23 @ 00:00 by ) Atrial fibrillation with rapid ventricular response ?I48.91 - Unspecified atrial fibrillation (ICD-10) Atrial fibrillation, new onset ?I48.91 - Unspecified atrial fibrillation (ICD-10) HTN (hypertension) ?I10 - Essential (primary) hypertension (ICD-10) Mitral valve insufficiency ?I34.0 - Nonrheumatic mitral (valve) insufficiency (ICD-10) Dyspnea ?R06.00 - Dyspnea, unspecified (ICD-10) Surgical History (Updated 09/30/23 @ 06:36 by Brisa Archer) History of back surgery ?Z98.890 - Other specified postprocedural states (ICD-10) History of total right knee replacement ?Z96.651 - Presence of right artificial knee joint (ICD-10) History of knee replacement procedure of left knee ?Z96.652 - Presence of left artificial knee joint (ICD-10) Family History (Updated 09/30/23 @ 06:33 by Christin Barahona) Other Family history of cancer Family history of hypertension Family history of myocardial infarction Social History (Updated 09/30/23 @ 06:35 by Christin Barahona) Within the past year, how often did you have a drink containing alcohol: never Within the past year, how many standard drinks containing alcohol did you have on a typical day: 1 or 2 Within the past year, how often did you have six or more drinks on one occasion: never Total score: 0 Score interpretation: A score less than 3 is consistent with normal alcohol consumption. Smoking status: Never smoker Non-prescribed substance use: denies use Previous occupational history: retired Highest level of school completed/degree received: high school graduate Are you now , , , , never or living with a partner: In a typical week, how many times do you talk on the telephone with family, friends, or neighbors: 3 or more times per week How often do you get together with friends or relatives: 3 or more times per week How often do you attend mandaen or orthodoxy services: 4 or more times per year Little interest or pleasure in doing things: not at all Feeling down, depressed, or hopeless: not at all Feel stressed/tense/nervous/anxious/difficulty sleeping: to some extent Life stressor details: back pain Do you think of yourself as: straight/heterosexual Gender Identity: female Exam Constitutional Vital Signs, click to edit/add: Last Vital Signs Temp 97.5 F L 10/03/23 07:00 Pulse 76 10/03/23 08:00 Resp 16 10/03/23 07:00 BP 124/77 10/03/23 03:00 Pulse Ox 98 10/03/23 05:57 O2 Del Method Room Air 10/03/23 03:00 Common normals: no apparent distress, average body habitus, oriented x3, no limitations, healthy appearing, alert and well nourished [facility] Common normals: normocephalic and head/scalp atraumatic Eye Common normals: PERRL, EOMs intact bilaterally and conjunctivae normal Respiratory Common normals: normal respiratory effort, no retractions, no use of accessory muscles and clear to auscultation bilaterally Cardio Rate: tachycardic Rhythm: abnormal rhythm GI Common normals: Normal to inspection, nondistended, normoactive bowel sounds present, soft to palpation and non-tender Extremity Common normals: normal to inspection and full ROM Neuro Common normals: oriented x3, CN's II-XII intact bilaterally, moves all extremities, no focal motor deficits and no sensory deficits noted Psych Appearance: grossly normal Course Course Hospital Course: Patient was a recent admission at discharge with atrial fibrillation with rapid ventricular response, placed on amiodarone 200 mg p.o. twice daily. Was doing well at home the last several days until yesterday evening when she developed more palpitations. No shortness of breath or chest tightness like the previous episode. Presented to emergency room and found to be back in atrial fibrillation with rapid ventricular response, given IV amiodarone with good result, back in normal sinus rhythm this morning. Will increase her amiodarone to 400 mg p.o. twice daily, place Holter monitor, if ambulating well this morning we will discharge patient to home in improving condition. Medications see list. Follow-up with me in the office as planned in 3 days Vital Signs Vital signs: Vital Signs Temperature 97.8 F 10/02/23 19:33 Pulse Rate 150 H 10/02/23 19:33 Respiratory Rate 16 10/02/23 19:33 Blood Pressure 167/95 H 10/02/23 19:33 Pulse Oximetry 99 10/02/23 19:33 Oxygen Delivery Method Room Air 10/02/23 19:33 Temperature 97.5 F L 10/03/23 07:00 Pulse Rate 76 10/03/23 08:00 Respiratory Rate 16 10/03/23 07:00 Blood Pressure 124/77 10/03/23 03:00 Pulse Oximetry 98 10/03/23 05:57 Oxygen Delivery Method Room Air 10/03/23 03:00 Medical Decision Making MDM Narrative Medical decision making narrative: patient just discharged a couple of days ago after she converted from A. Fib to NSR. Discharged on Eliquis and Amiodarone. Returns with rapid heart beat sensation. No chest pain or tightness. Treated with amiodarone bolus and drip. Serial troponin neg. Discussed with hospitalist and accepted to ICU Lab Data Labs: Lab Results 10/02/23 10/02/23 Range/Units 19:56 21:30 WBC 7.0 (4.0-11.0) 10^3/uL RBC 4.02 L (4.20-5.40) 10^6/uL Hgb 12.6 (12.0-16.0) g/dL Hct 37.9 (36.0-48.0) % MCV 94.3 (81.0-99.0) fL MCH 31.3 (26.7-34.0) pg MCHC 33.2 (29.9-35.2) g/dL RDW 12.8 (11.0-15.0) % Plt Count 216 (150-450) 10^3/uL MPV 10.7 (9.5-13.5) fL Neut % (Auto) 56.6 (43.0-75.0) % Lymph % (Auto) 28.8 (20.5-60.0) % [place] % (Auto) 10.8 (1.7-12.0) % Eos % (Auto) 2.6 (0.9-7.0) % Baso % (Auto) 1.2 (0.2-2.0) % Neut # (Auto) 3.9 (1.4-6.5) 10^3/uL Lymph # (Auto) 2.0 (1.2-3.8) 10^3/uL [place] # (Auto) 0.8 (0.3-0.8) 10^3/uL Eos # (Auto) 0.2 (0.0-0.7) 10^3/uL Baso # (Auto) 0.1 (0.0-0.1) 10^3/uL Abs Immat Gran (auto) 0.00 (0.00-0.03) 10^3/uL Imm/Tot Granulo (auto) 0.0 (0.0-0.5) % Sodium 145 (136-145) mmol/L Potassium 3.8 (3.5-5.1) mmol/L Chloride 108 H (98-107) mmol/L Carbon Dioxide 22.9 (21.0-32.0) mmol/L Anion Gap 17.9 BUN 26.0 H (7.0-18.0) mg/dL Creatinine 1.43 H (0.55-1.02) mg/dL Est GFR ( Amer) 43 L (>=60) Est GFR (Non-Af Amer) 36 L (>=60) BUN/Creatinine Ratio 18.2 Glucose 166 H (74-106) mg/dL Calcium 9.6 (8.5-10.1) mg/dL Troponin I High Sens 7.3 8.2 (4.0-51.3) pg/mL NT-Pro-B Natriuret Pep 1106.0 (<=1800.0) pg/mL Discharge Plan Discharge Chief Complaint: Chest Pain Clinical Impression: Atrial fibrillation with rapid ventricular response Patient Disposition: Admitted As Inpatient Condition: Fair Discharge Date/Time: 10/02/23 22:30
--- NOTE | 2023-10-02 19:49 | XR_ITS ---
The [address] [address] Patient Name: SON WILEY MRN: [id number] date: 1945 Sex: F Assigned Patient Location: ER Current Patient Location: ER Accession/Order Number: [id number] Exam Date: 10/02/2023 20:18 Report Date: 10/02/2023 20:45 At the request of: CRESCENCIO BOOKER Procedure: XR chest 1V ONE-VIEW CHEST RADIOGRAPH, 10/02/2023 8:18 PM EST COMPARISON: Chest, 09/29/2023. CLINICAL HISTORY: A. Fib Findings and impression: 1. No acute pulmonary disease. 2. Normal heart size. 3. The bones are mineralized. Degenerative changes of visualized spine and bilateral shoulders. No acute osseous abnormality. Electronically authenticated by: Warren CHURCHILL Date: 10/02/2023 20:45
--- NOTE | 2023-10-02 20:00 | ECG_ITS ---
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
[2023-10-02 20:09] LABS: Basophils Absolute Auto 0.1 10^3/uL (0.0-0.1); Basophils Percent Auto 1.2 % (0.2-2.0); Eosinophils Absolute Auto 0.2 10^3/uL (0.0-0.7); Eosinophils Percent Auto 2.6 % (0.9-7.0); Hematocrit 37.9 % (36.0-48.0); Hemoglobin 12.6 g/dL (12.0-16.0); Lymphocytes Percent Auto 28.8 % (20.5-60.0); Mean Corpuscular HGB Conc 33.2 g/dL (29.9-35.2); Mean Corpuscular Hemoglobin 31.3 pg (26.7-34.0); Mean Corpuscular Volume 94.3 fL (81.0-99.0); Mean Platelet Volume 10.7 fL (9.5-13.5); Monocytes Absolute Auto 0.8 10^3/uL (0.3-0.8); Monocytes Percent Auto 10.8 % (1.7-12.0); Neutrophils Absolute Auto 3.9 10^3/uL (1.4-6.5); Neutrophils Percent Auto 56.6 % (43.0-75.0); Platelet Count 216 10^3/uL (150-450); Red Blood Count 4.02 10^6/uL (4.20-5.40); Red Cell Distribution Width 12.8 % (11.0-15.0)
[2023-10-02] MEDS: AMIODARONE IN DEXTROSE,ISO-OSM 150 MG/100 ML PIGGYBACK 600 MG IV (20:11)
[2023-10-02 20:26] LABS: Anion Gap 17.9; BUN Creatinine Ratio 18.2; Calcium 9.6 mg/dL (8.5-10.1); Carbon Dioxide 22.9 mmol/L (21.0-32.0); Chloride 108 mmol/L (98-107); Estimated GFR (African America 43 (>=60); Estimated GFR (Non-African Ame 36 (>=60); Glucose 166 mg/dL (74-106); Potassium 3.8 mmol/L (3.5-5.1); Sodium 145 mmol/L (136-145); Troponin I High Sensitivity 7.3 pg/mL (4.0-51.3)
[2023-10-02] MEDS: AMIODARONE IN DEXTROSE,ISO-OSM 360 MG/200 ML PLAST..BAG 16.6670000000000016 MG IV (20:35)
[2023-10-02] MEDS: AMIODARONE IN DEXTROSE,ISO-OSM 360 MG/200 ML PLAST..BAG 33.3329999999999984 MG IV (21:30)
[2023-10-02 21:51] LABS: Troponin I High Sensitivity 8.2 pg/mL (4.0-51.3)
[2023-10-02] MEDS: ACETAMINOPHEN 325 MG TABLET 650 MG PO (23:25)
[2023-10-03] VITALS (8 sets, daily range): BP systolic 100–124; BP diastolic 64–77; PULSE 60–139; RESP 16–21; TEMP 36.3–36.4; O2SAT 93–98
[2023-10-03] MEDS: AMIODARONE IN DEXTROSE,ISO-OSM 360 MG/200 ML PLAST..BAG IV (03:21)
--- NOTE | 2023-10-03 03:42 | ECG_ITS ---
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
[2023-10-03 04:35] LABS: Hematocrit 35.5 % (36.0-48.0); Hemoglobin 11.5 g/dL (12.0-16.0); Mean Corpuscular HGB Conc 32.4 g/dL (29.9-35.2); Mean Corpuscular Hemoglobin 31.6 pg (26.7-34.0); Mean Corpuscular Volume 97.5 fL (81.0-99.0); Mean Platelet Volume 10.7 fL (9.5-13.5); Platelet Count 190 10^3/uL (150-450); Red Blood Count 3.64 10^6/uL (4.20-5.40); White Blood Count 6.9 10^3/uL (4.0-11.0)
[2023-10-03 05:06] LABS: Anion Gap 16.3; BUN Creatinine Ratio 19.5; Carbon Dioxide 21.7 mmol/L (21.0-32.0); Chloride 109 mmol/L (98-107); Estimated GFR (African America 49 (>=60); Estimated GFR (Non-African Ame 40 (>=60); Glucose 132 mg/dL (74-106); Sodium 143 mmol/L (136-145); Troponin I High Sensitivity 10.4 pg/mL (4.0-51.3)
[2023-10-03 07:30] LABS: Free T3 1.61 pg/mL (2.18-3.98); Thyroid Stimulating Hormone 4.504 uIU/mL (0.358-3.740)
--- NOTE | 2023-10-03 07:50 | CA_ITS ---
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1945 Requested By: PAT NEWELL Order Number: [id number] Reading MD: ABELINO PEREZ Interpretive Statements Predominant rhythm is sinus with average rate of 63 bpm Tachycardia - max rate of 149 bpm (PSVT) - 8 episodes of PSVT w/ longest duration of 6 beats and rate of 149 bpm - longest episode of 6min 49sec with rate of 105 bpm Bradycardia: 37% total - min rate of 48 bpm - longest episode of 1h 34min 59sec with rates between 54-57 bpm Ventricular ectopy - 30 total, <1% - 30 PVC Patient triggered events: 1 - not associated with symptoms or ectopy Impression: Predominant rhythm is sinus with average rate of 63 bpm Fastest rate of 149 bpm (PSVT) and slowest rate of 48 bpm 30 PVC No atrial fibrillation No blocks or pauses Electronically Signed On 10-19-2023 8:34:47 EDT by ABELINO PEREZ
--- NOTE | 2023-10-03 07:50 | P.HP_ITS ---
H&P: HPI History of Present Illness Chief complaint: AFIB With rapid ventricular response Narrative: Patient with a recent admission and discharge for atrial fibrillation with rapid ventricular response. She has an allergy to Cardizem so was placed on amiodarone. The amiodarone drip converted her last time. She was placed on oral amiodarone and Eliquis. Last night she started feeling more palpitations. Normal shortness of breath and no chest tightness like the previous episode. She presented to the emergency room and had atrial fibrillation with rapid ventricular response. Again placed on amiodarone with a good conversion back to normal sinus rhythm this morning Review of Systems ROS Status of ROS 10 or more systems reviewed and unremark able except as noted in history and below [facility] Medical History (Updated 10/02/23 @ 22:10 by Angel Ashley MD) HTN (hypertension) ?I10 - Essential (primary) hypertension (ICD-10) Mitral valve insufficiency ?I34.0 - Nonrheumatic mitral (valve) insufficiency (ICD-10) Dyspnea ?R06.00 - Dyspnea, unspecified (ICD-10) Surgical History (Updated 09/30/23 @ 06:36 by Brisa Archer) History of back surgery ?Z98.890 - Other specified postprocedural states (ICD-10) History of total right knee replacement ?Z96.651 - Presence of right artificial knee joint (ICD-10) History of knee replacement procedure of left knee ?Z96.652 - Presence of left artificial knee joint (ICD-10) Family History (Updated 09/30/23 @ 06:33 by Christin Barahona) Other Family history of cancer Family history of hypertension Family history of myocardial infarction Social History (Updated 09/30/23 @ 06:35 by Christin Barahona) Within the past year, how often did you have a drink containing alcohol: never Within the past year, how many standard drinks containing alcohol did you have on a typical day: 1 or 2 Within the past year, how often did you have six or more drinks on one occasion: never Total score: 0 Score interpretation: A score less than 3 is consistent with normal alcohol consumption. Smoking status: Never smoker Non-prescribed substance use: denies use Previous occupational history: retired Highest level of school completed/degree received: high school graduate Are you now , , , , never or living with a partner: In a typical week, how many times do you talk on the telephone with family, fr iends, or neighbors: 3 or more times per week How often do you get together with friends or relatives: 3 or more times per week How often do you attend samaritan or synagogue services: 4 or more times per year Little interest or pleasure in doing things: not at all Feeling down, depressed, or hopeless: not at all Feel stressed/tense/nervous/anxious/difficulty sleeping: to some extent Life stressor details: back pain Do you think of yourself as: straight/heterosexual Gender Identity: female Meds Home Medications and Allergies Home Medications Medication Instructions Recorded Confirmed Type atorvastatin 40 mg tablet 40 mg PO DAILY 06/19/23 10/03/23 History escitalopram oxalate 10 mg tablet 10 mg PO DAILY 06/19/23 10/03/23 History (Lexapro) loperamide 2 mg capsule 2 mg PO DAILY 06/19/23 10/03/23 History (Anti-Diarrheal (loperamide)) losartan 100 mg tablet (Cozaar) 100 mg PO DAILY 06/19/23 10/03/23 History pantoprazole 40 mg tablet,delayed 40 mg PO DAILY 06/19/23 10/03/23 History release vitamin A-vitamin C-vit E-min 1 tab PO DAILY 06/19/23 10/03/23 History tablet (Vision tablet) benzonatate 200 mg capsule 200 mg PO TID PRN cough #60 caps 06/20/23 10/03/23 Rx isosorbide mononitrate 30 mg 30 mg PO Q24H #30 tabs 06/20/23 10/03/23 Rx tablet,extended release 24 hr liothyronine 5 mcg tablet 5 mcg PO QD #30 tabs 06/20/23 10/03/23 Rx promethazine 12.5 mg tablet 6.25 mg (1/2 x 12.5 mg) PO TID PRN 08/09/23 09/29/23 Rx nausea and vomiting #7 tabs apixaban 5 mg tablet (Eliquis) 5 mg PO BID #60 tabs 09/30/23 10/03/23 Rx amiodarone 200 mg tablet (Pacerone) 400 mg (2 x 200 mg) PO BID #120 10/03/23 Rx tabs cephalexin 500 mg capsule 500 mg PO Q12H UTI 10/03/23 10/03/23 History hydralazine 25 mg tablet 25 mg PO DAILY 10/03/23 10/03/23 History Allergies Allergy/AdvReac Type Severity Reaction Status Date / Time SERINA Inhibitors Allergy Severe Verified 10/02/23 19:36 diltiazem Allergy Severe shortness Verified 10/02/23 19:36 of breath gabapentin [From Neurontin] Allergy Severe Verified 10/02/23 19:36 metoprolol Allergy Severe Verified 10/02/23 19:36 amlodipine AdvReac Severe swelling Verified 10/02/23 19:36 morphine AdvReac Severe Nausea Verified 10/02/23 19:36 Exam Constitutional Vital Signs, click to edit/add: Last Vital Signs Temp 97.5 F L 10/03/23 07:00 Pulse 60 10/03/23 05:57 Resp 16 10/03/23 07:00 BP 124/77 10/03/23 03:00 Pulse Ox 98 10/03/23 05:57 O2 Del Method Room Air 10/03/23 03:00 Common normals: no apparent distress, average body habitus, oriented x3, no limitations, healthy appearing, alert and well nourished [facility] Common normals: normocephalic and head/scalp atraumatic Eye Common normals: PERRL, EOMs intact bilaterally and conjunctivae normal Respiratory Common normals: normal respiratory effort, no retractions, no use of accessory muscles and clear to auscultation bilaterally Cardio Common normals: regular rate and regular rhythm GI Common normals: Normal to inspection, nondistended, normoactive bowel sounds present, soft to palpation and non-tender Extremity Common normals: normal to inspection and full ROM Neuro Common normals: oriented x3, CN's II-XII intact bilaterally, moves all extremities, no focal motor deficits and no sensory deficits noted Psych Appearance: grossly normal Results Labs Labs: Short CBC 10/02/23 10/03/23 Range/Units 19:56 04:13 WBC 7.0 6.9 (4.0-11.0) 10^3/uL Hgb 12.6 11.5 L (12.0-16.0) g/dL Hct 37.9 35.5 L (36.0-48.0) % Plt Count 216 190 (150-450) 10^3/uL BMP 10/02/23 10/03/23 19:56 04:13 Sodium 145 143 Potassium 3.8 4.0 Chloride 108 H 109 H Carbon Dioxide 22.9 21.7 BUN 26.0 H 25.0 H Creatinine 1.43 H 1.28 H Glucose 166 H 132 H Calcium 9.6 9.0 Assessment and Plan Assessment and Plan (1) Atrial fibrillation with rapid ventricular response: (2) HTN (hypertension): Plan Atrial fibrillation with rapid ventricular response-on amiodarone drip and converted. Weaning off amiodarone drip this morning, increasing oral dose to 400 mg twice daily, if she is stable later this morning she can be discharged home. Medications see list. Follow-up with me in the office on Friday as planned. Referral to [facility] Friday
--- NOTE | 2023-10-03 07:50 | PM.DS1 ---
DS: Providers Provider Date of admission: 10/02/23 22:30 Primary care physician: Demarco Graves MD DS: Diagnosis Discharge Diagnosis (1) Atrial fibrillation with rapid ventricular response: (2) Dyspnea: (3) HTN (hypertension): DS: Summary Hospital Course Hospital Course: Patient was a recent admission at discharge with atrial fibrillation with rapid ventricular response, placed on amiodarone 200 mg p.o. twice daily. Was doing well at home the last several days until yesterday evening when she developed more palpitations. No shortness of breath or chest tightness like the previous episode. Presented to emergency room and found to be back in atrial fibrillation with rapid ventricular response, given IV amiodarone with good result, back in normal sinus rhythm this morning. Will increase her amiodarone to 400 mg p.o. twice daily, place Holter monitor, if ambulating well this morning we will discharge patient to home in improving condition. Medications see list. Follow-up with me in the office as planned in 3 days Time Spent with Patient Time attestation: Total time spent providing and/or coordinating discharge services: Time spent: less than 30 minutes Exam Constitutional Vital Signs, click to edit/add: Last Vital Signs Temp 97.5 F L 10/03/23 07:00 Pulse 60 10/03/23 05:57 Resp 16 10/03/23 07:00 BP 124/77 10/03/23 03:00 Pulse Ox 98 10/03/23 05:57 O2 Del Method Room Air 10/03/23 03:00 Common normals: no apparent distress, average body habitus, oriented x3, no limitations, healthy appearing, alert and well nourished [facility] Common normals: normocephalic and head/scalp atraumatic Eye Common normals: PERRL, EOMs intact bilaterally and conjunctivae normal Respiratory Common normals: normal respiratory effort, no retractions, no use of accessory muscles and clear to auscultation bilaterally Cardio Common normals: regular rate and regular rhythm GI Common normals: Normal to inspection, nondistended, normoactive bowel sounds present, soft to palpation and non-tender Extremity Common normals: normal to inspection and full ROM Neuro Common normals: oriented x3, CN's II-XII intact bilaterally, moves all extremities, no focal motor deficits and no sensory deficits noted Psych Appearance: grossly normal DS: Data Data Completed and Pending Labs on day of discharge: Labs from last 24 hours 10/03/23 10/02/23 10/02/23 04:13 21:30 19:56 WBC 6.9 7.0 RBC 3.64 L 4.02 L Hgb 11.5 L 12.6 Hct 35.5 L 37.9 MCV 97.5 94.3 MCH 31.6 31.3 MCHC 32.4 33.2 RDW 13.0 12.8 Plt Count 190 216 MPV 10.7 10.7 Neut % (Auto) 56.6 Lymph % (Auto) 28.8 Ector % (Auto) 10.8 Eos % (Auto) 2.6 Baso % (Auto) 1.2 Neut # (Auto) 3.9 Lymph # (Auto) 2.0 Ector # (Auto) 0.8 Eos # (Auto) 0.2 Baso # (Auto) 0.1 Abs Immat Gran (auto) 0.00 Imm/Tot Granulo (auto) 0.0 Sodium 143 145 Potassium 4.0 3.8 Chloride 109 H 108 H Carbon Dioxide 21.7 22.9 Anion Gap 16.3 17.9 BUN 25.0 H 26.0 H Creatinine 1.28 H 1.43 H Est GFR ( Amer) 49 L 43 L Est GFR (Non-Af Amer) 40 L 36 L BUN/Creatinine Ratio 19.5 18.2 Glucose 132 H 166 H Calcium 9.0 9.6 Troponin I High Sens 10.4 8.2 7.3 NT-Pro-B Natriuret Pep 1106.0 TSH 4.504 H Thyroxine (T4) 6.70 Free T3 1.61 L Discharge Plan Discharge Disposition: Home, Self-Care Condition: Fair Discharge Medications: New amiodarone [Pacerone] 200 mg Tablet 400 mg PO BID Qty: 120 0RF Continued promethazine 12.5 mg tablet 6.25 mg PO TID PRN (Reason: nausea and vomiting) Qty: 7 0RF Rx Instructions: 3 doses during day; last dose no later than 4 hr before bedtime Eliquis 5 mg Tablet 5 mg PO BID Qty: 60 11RF losartan [Cozaar] 100 mg tablet 100 mg PO DAILY pantoprazole 40 mg tablet,delayed release (DR/EC) 40 mg PO DAILY loperamide [Anti-Diarrheal (loperamide)] 2 mg capsule 2 mg PO DAILY escitalopram oxalate [Lexapro] 10 mg tablet 10 mg PO DAILY atorvastatin 40 mg tablet 40 mg PO DAILY Vision Tablet 1 tab PO DAILY isosorbide mononitrate 30 mg Tablet Extended Release 24 Hr 30 mg PO Q24H Qty: 30 11RF liothyronine 5 mcg Tablet 5 mcg PO QD Qty: 30 11RF benzonatate 200 mg capsule 200 mg PO TID PRN (Reason: cough) Qty: 60 11RF cephalexin 500 mg capsule 500 mg PO Q12H hydralazine 25 mg tablet 25 mg PO DAILY Discontinued amiodarone [Pacerone] 200 mg Tablet 200 mg PO BID Qty: 60 11RF Forms: Portal Instructions
[2023-10-03] MEDS: LOPERAMIDE HCL 2 MG CAPSULE PO (09:01)
[2023-10-03] MEDS: HYDRALAZINE HCL 25 MG TABLET PO (09:01)
[2023-10-03] MEDS: APIXABAN 5 MG TABLET PO (09:02)
[2023-10-03] MEDS: LIOTHYRONINE SODIUM 5 MCG TABLET PO (09:02)
[2023-10-03] MEDS: CEPHALEXIN 500 MG CAPSULE PO (09:02)
[2023-10-03] MEDS: AMIODARONE HCL 200 MG TABLET 400 MG PO (09:02)
[2023-10-03] MEDS: ESCITALOPRAM 10 MG TABLET PO (09:02)
[2023-10-03] MEDS: LOSARTAN POTASSIUM 50 MG TABLET 100 MG PO (09:02)
[2023-10-03] MEDS: OMEPRAZOLE 40 MG CAPSULE.DR PO (09:02)
[2023-10-03] MEDS: ISOSORBIDE MONONITRATE 30 MG TAB.ER.24H PO (09:04)
--- NOTE | 2023-10-06 15:03 | CM.DCFOLLOWU ---
Person spoke with: Cece How are you feeling? much better How is your pain? No pain Did you understand your discharge instructions? Yes Do you have any questions about your discharge instructions? No Were you given any prescriptions at discharge? Just increased my Amiodorone Were you able to get your prescriptions filled? Yes Do you understand how to take your medications as ordered? Yes Do you have any questions about your follow up appointment and do you plan to keep your follow up appointment? I went to see Dr. Graves this AM-everything was good Is there anything else that you would like to discuss? No Questions/Comments/Concerns/Other:
== END 2023-10-03 09:40 | disposition home or self-care (01) ==
LOC: ER 19:19 → ICU 22:35
PROVIDERS: Registered Nurse; Admitting Provider Family Medicine; Emergency Provider Internal Medicine; PCP Family Medicine; Visit Provider Family Medicine
DX: I48.91 Unspecified atrial fibrillation (principal); I10 Essential (primary) hypertension; R06.00 Dyspnea, unspecified; I34.0 Nonrheumatic mitral (valve) insufficiency; Z96.651 Presence of right artificial knee joint; Z96.652 Presence of left artificial knee joint; Z79.01 Long term (current) use of anticoagulants; Z79.899 Other long term (current) drug therapy
CPT/HCPCS: 36415; 71045; 80048; 83880; 84436; 84443; 84481; 84484; 85025; 85027; 93005; 93246; 96365; 96366; 96368; 96376; 99285; G0378

== ENCOUNTER 2023-10-18 16:47 | Emergency (ER) | payer MEDICARE, OTHER, SELFPAY ==
[2023-10-18 16:51] VITALS: BP 137/79; PULSE 69; RESP 18; TEMP 37.1; O2SAT 98; BMI 31.4
--- OUTSIDE RECORDS SUMMARY | 2023-10-18 16:57 | XMS_ITS | CCD ---
Author Name Unknown Address [address] [place] [address] Organization [facility] Care Team Providers Care Dairy Technician Name Role Phone ASHLEY, FAN H. Referring Unavailable HOY, PAT M Primary Care Unavailable RICKI KWOK Referring Unavailable HOY, PAT M Primary Care Unavailable ASHLEY, FAN H. Attending Unavailable ASHLEY, FAN H. Referring Unavailable HOBrittany, PAT M Primary Care Unavailable ASHLEY, FAN H. Admitting Unavailable ASHLEY, FAN H. Attending Unavailable ASHLEY, FAN H. Referring Unavailable HOY, PAT M Primary Care Unavailable ASHLEY, FAN H. Attending Unavailable ASHLEY, FAN H. Referring Unavailable HOY, PAT M Primary Care Unavailable SCULLIN, CHRISTIE Admitting Unavailable SCULLIN, CHRISTIE Attending Unavailable HOBrittany, PAT M Primary Care Unavailable MJ COLON Consulting Unavailable ASHLEY, FAN H. Consulting Unavailable CLARK SANDERS Consulting Unavailable FRANCIS HOLGUIN Consulting Unavailable OSIRISANGPAT Primary Care Unavailable UNKNOWN, PROVIDER Attending Unavailable UNKNOWN, PROVIDER Admitting Unavailable SELF, REFERRED Referring Unavailable OSIRISANGPAT Primary Care Unavailable UNKNOWN, PROVIDER Attending Unavailable UNKNOWN, PROVIDER Admitting Unavailable SELF, REFERRED Referring Unavailable Pat Newell MD Primary Care Provider Pat Newell MD Primary Care Provider Pat Newell MD Primary Care Provider MD Pat Newell Primary Care Provider MD Pat Newell Referring Provider Self, Referral Attending Provider Unavailable Pat Newell MD Primary Care Provider DR PAT LOWERY Admitting Unavailable OSIRIS ., DR STEWART Attending Unavailable OSIRIS ., DR STEWART Primary Care Unavailable OSIRIS ., DR STEWART Consulting Unavailable MOUKARBEL, DR [...] DICKSON Admitting Unavailable MADELYN DICKSON Attending Unavailable OSIRIS ., DR STEWART Primary Care Unavailable MADELYN DICKSON Consulting Unavailable MD aPt Newell Primary Care Provider [phone] MD Pat Newell Referring Provider [phone] Self, Referral Attending Provider Unavailable Self, Referral Attending Unavailable Pat Newell Primary Care Unavailable Pat Newell Referring Unavailable Self, Referral Admitting Unavailable CLINTON DORAN Attending Unavailable DINORAH MONTES Attending Unavailable MOUKARBELCLINTON Referring Unavailable MOCLINTON TRUJILLO Attending Unavailable PTA NEWELL Primary Care Unavailable STEPH MURPHY Attending Unavaila MYLENE Ruiz Referring Unavailable PAT NEWELL Primary Care Unavailable GILMA PATEL Attending Unavailable Allergies Allergy Classification Reported Allergen(s) Allergy Type Date of Onset Reaction(s) Facility Angiotensin Converting Enzyme (SERINA) Inhibitors (1 source) Angiotensin Converting Enzyme (Serina) Inhibitors Drug Allergy 04-04-2020 [facility] Repository Opioid Agonists (2 sources) Codeine; Translations: [morphine] Drug Allergy 04-04-2020 [facility] Repository (5 sources) Angiotensin-conv erting enzyme inhibitor agent; Translations: [SERINA INHIBITORS] Drug Allergy 04-28-2012 [facility] (11 sources) Codeine; Translations: [CODEINE] Drug Allergy 04-28-2012 [facility] (10 sources) HYDROmorphone; Translations: [HYDROMORPHONE (BULK)] Drug Allergy 05-12-2012 [facility] (8 sources) Angiotensin-conv erting enzyme inhibitor agent Drug Allergy 04-28-2012 [facility] (8 sources) amLODIPine; Translations: [AMLODIPINE] Drug Allergy 04-24-2022 Swelling [facility] (3 sources) Acetaminophen; Translations: [acetaminophen] Drug Allergy 07-28-2017 Nausea [facility] (3 sources) HYDROcodone; Translations: [hydrocodone] Drug Allergy 07-28-2017 Nausea [facility] (7 sources) Meperidine; Translations: [meperidine] Drug Allergy 07-28-2017 Vomiting [facility] (5 sources) Morphine; Translations: [morphine] Drug Allergy 07-28-2017 Nausea [facility] (1 source) Angiotensin Converting Enzyme (Serina) Inhibitors Drug allergy (disorder) 04-22-2013 [facility] Repository (1 source) Codeine Drug Allergy 04-29-2013 [facility] Repository (1 source) Meperidine Drug Allergy 04-29-2013 [facility] Repository (1 source) Angiotensin Converting Enzyme (Serina) Inhibitors Drug allergy (disorder) 07-28-2017 [facility] Repository (1 source) Amoxicillin; Translations: [AMOXICILLIN] Drug Allergy 03-13-2023 [facility] Repository (1 source) gabapentin; Translations: [GABAPENTIN] Drug Allergy 05-25-2019 [facility] Repository Medications Current Medications Medication Drug [...] source) Diagnostic Dye Start: 10-10-2022 End: 10-10-2022 fluorescein-abelardo xinate 0.25-0.4 % 1 Drop (FLURESS) cephalexin 500 mg oral capsule (2 sources) Cephalosporin Antibacterial Start: 07-29-2017 take 1 capsule by mouth every eight hours Cephalexin (Keflex) 500 mg capsule Active 500 MG PO Q8H 21 July 29, 2017 1:00am docusate sodium 50 mg / sennosides, residential 8.6 mg oral tablet (2 sources) Start: 07-29-2017 take 2 tablets by mouth twice daily Sennosides-Docus ate Sodium (Dok Plus) 8.6-50 mg Tablet Active 2 TAB PO Twice daily 40 July 29, 2017 1:00am FLUoxetine 20 mg oral capsule (4 sources) Serotonin Reuptake Inhibitor Start: 03-18-2012 End: 03-07-2022 take 20 mg by mouth once daily Fluoxetine Active 20 MG PO Daily July 28, 2017 1:00am Comment on above: once daily. furosemide 20 mg oral tablet (8 sources) Loop Diuretic Start: 10-14-2023 End: 11-13-2023 take 1 tablet by mouth once daily furosemide (LASIX) 20 mg tablet Take 1 tablet by mouth once daily. 30 tablet 0 10/14/2023 11/13/2023 Active furosemide (LASI X) 20 mg tablet Take 20 mg by mouth. 0 Active Comment on above: Take 20 mg by mouth. Take 1 tablet by gricelda th once daily. phenylephrine hydrochloride 25 mg/ml ophthalmic [...] Sig (Original) aspirin 81 mg oral tablet (8 sources) Platelet Aggregation Inhibitor, Nonsteroidal Anti-inflammatory Drug aspirin 81 mg cap Take by mouth. 0 Active Comment on above: Take by mouth. atorvastatin 40 mg oral tablet (11 sources) HMG-CoA Reductase Inhibitor Start: 09-29-2022 take [...] 40 mg by mouth once daily. Biotin (2 sources) BIOTIN ORAL celecoxib 200 mg oral capsule [...] mg by mouth d aily at bedtime. hydrALAZINE hydrochloride 25 mg oral tablet (8 sources) Arteriolar Vasodilator hydrALAZINE (APRESOLINE) 25 mg [...] SURGERY krill oil 500 mg oral capsule (2 sources) krill oil 500 mg cap losartan potassium 100 mg oral tablet (13 sources) Angiotensin 2 Receptor Ken Start: losartan (COZAAR) 100 mg tablet Start: 07-28-2017 take 25 mg by mouth at bedtime Losartan Active 25 MG PO Bedtime July 28, 2017 1:00am Start: 07-28-2017 take 50 mg by mouth once daily Losartan Active 50 MG PO Daily July 28, 2017 1:00am take 2 tablets by [facility] once daily losartan (COZAAR) 50 mg tablet Take 100 mg by mouth once daily. 0 Active Comment on above: Take 50 mg by mouth once daily. Take 100 mg by mouth once daily. Multivitamin capsule (9 sources) take 1 capsule by mouth once daily Multivitamin capsule Take 1 capsule by mouth once daily. 0 Active Comment on above: Take 1 capsule by [facility] once daily. Naproxen (2 sources) Nonsteroidal Anti-inflammatory Drug End: 03-07-20 NAPROXEN SODIUM (ALEVE ORAL) Take by mouth. 0 03/07/2022 Discontinued (Discontinued by Patient) NAPROXEN SODIUM (ALEVE ORAL) Take by mouth. 0 Active Comment on above: Take by mouth. niacin 500 mg oral tablet (2 sources) Nicotinic Acid End: niacin, inositol niacinate, 500 mg tab Take by mouth. 0 03/07/2022 Discontinued (Discontinued by Patient) Comment on above: Take by mouth. pantoprazole 40 mg delayed release oral tablet (8 sources) Proton Pump Inhibitor Start: 3 take [...] chloride 10 meq extended release oral tablet (8 sources) Start: 01-23-2022 potassium chloride ER (K-DUR, [...] mouth. traMADol hydrochloride 50 mg oral tablet (12 sources) Opioid Agonist Start: 11-27-2021 take 1 [...] as needed. TYRVAYA 0.03 mg/spray nasal spray (8 sources) Start: 2 take 1 spray(s) nasal route twice daily TYRVAYA 0.03 mg/spray nasal spray Instill 1 spray into both nostrils twice a day 0 01/03/2022 Active Comment on above: Instill 1 spray into both nostrils twice a day ubidecarenone 10 mg oral capsule (3 sources) ubidecarenone Q- 10 (COENZYME Q-10) 10 mg cap End: 03-07-2022 ubidecarenone Q-10 (COENZYME Q-10) 10 mg cap Take by mouth. 0 03/07/2022 Discontinued (Discontinued by Patient) Comment on above: Take by mouth. 24 hr venlafaxine 75 mg extended release oral capsule (6 sources) Serotonin and Norepinephrine Reuptake Inhibitor Start: 04-09-20 22 take 1 capsule by mouth once daily venlafaxine ER (EFFEXOR XR) 75 mg 24 hr capsule Take 75 mg by mouth once daily. 0 04/09/2022 Active Comment on above: Take 75 mg by mouth once daily. vit A/vit C/vit E/zinc/copper (PRESERVISION AREDS ORAL) (2 sources) vit A/vit C/vit E/zinc/copper (PRESERVISION AREDS ORAL) VIT C/VIT E/LUTEIN/MIN/OMEGA-3 (OCUVITE ORAL) (9 sources) VIT C/VIT E/LUTEIN/MIN/OMEGA- 3 (OCUVITE ORAL) Take by mouth. 0 Active Comment on above: Take by mouth. Problems Active Problems Problem Classification Problem Date Documented Date Episodic/Chronic Acute bronchitis (1 source) Acute bronchitis, unspecified; Translations: [ACUTE BRONCHITIS UNSPECIFIED] Onset: 09-29-2022 Episodic Anxiety disorders (6 sources) Anxiety; Translations: [Anxiety disorder, unspecified] Onset: 04-24-2022 04-24-2022 Chronic Cataract (6 sources) Bilateral senile combined form cataracts of eyes; Translations: [Combined forms of age-related cataract, bilateral] Chronic Congestive heart failure; nonhypertensive (2 sources) Acute on chronic diastolic (congestive) heart failure; Translations: [Acute on chronic diastolic (congestive) heart failure] Onset: 07-08-2023 Chronic Coronary atherosclerosis and other heart disease (10 sources) Coronary arteriosclerosis; Translations: [Atherosclerotic heart disease of [place] coronary artery without angina pectoris] Onset: 04-24-2022 04-24-2022 Chronic Deficiency and other anemia (1 source) Anemia, unspecified; Translations: [ANEMIA UNSPECIFIED] Onset: 11-18-2022 Episodic Diabetes mellitus without complication (1 source) Hyperglycemia, unspecified; Translations: [HYPERGLYCEMIA UNSPECIFIED] Onset: 11-18-2022 Episodic Disorders of lipid metabolism (11 sources) Hyperlipidemia; Translations: [Hyperlipidemia, unspecified] Onset: 02-22-2019 04-24-2022 Chronic Esophageal disorders (6 sources) Gastroesophageal reflux disease; Translations: [Gastro-esophageal reflux disease without esophagitis] Onset: 02-22-2019 04-24-2022 Chronic Essential hypertension (9 sources) Hypertensive disorder; Translations: [Essential (primary) hypertension] Onset: 02-22-2019 04-24-2022 Chronic Heart valve disorders (10 sources) Nonrheumatic mitral (valve) insufficiency; Translations: [Nonrheumatic [...] that caused by tuberculosis or sexually transmitteddisease) (1 source) Punctate keratitis of left eye; Translations: [Punctate keratitis, left eye] Chronic Malaise and fatigue (1 source) Other fatigue; Translations: [OTHER FATIGUE] Onset: 11-18-2022 Episodic Mood disorders (6 sources) Depressive disorder; Translations: [Depression] Onset: 04-24-2022 04-24-2022 Chronic Nonspecific chest pain (1 source) Chest pain, unspecified; Translations: [Chest pain, unspecified type] Onset: 10-14-2023 Episodic Other circulatory disease (4 sources) Raynaud's syndrome [...] Onset: 07-01-2022 Episodic Other non-traumatic joint disorders (9 sources) Pain in unspecified knee; Translations: [Pain in joint, lower leg] Onset: 06-04-2012 06-04-2012 Episodic Spondylosis; intervertebral disc disorders; other back problems (9 sources) Chronic low back pain; Translations: [Chronic bilateral low back pain without sciatica] Onset: 06-14-2016 08-07-2021 Episodic Unclassified (1 source) CONTACT W/AND (SUSP) EXPOS COVID-19; Translations: [CONTACT W/AND (SUSP) EXPOS COVID-19] Onset: 09-25-2022 Results Test Name Value Interpretation Reference Range Facility [facility] 10-17-2023 CNPN Telephone (HVICTR) SON HUBBARD ([id number]) 1945 F Date Time Provider Department 10/17/23 GENOVEVA GIBBONS HVICTR During your visit today, we recorded the following information about you: Genoveva Gibbons RN 10/17/2023 7:08 PM Signed Spoke to pt's daughter, Mily Salazar she is the spokes person for p,. She states that pt needs TMVR. Her phone number is [phone] and email [email or web address] I have sent her the usual TMVR letter. Pt has an upcoming appt with Dr Liz on 01/22/23. I told her that more than likely this appt will be cancelled. Allergies As of Date: 10/17/2023 Noted Allergy Reaction SERINA INHIBITORS 04/28/2012 2 - Rash AMLODIPINE 04/24/2022 7 - Swelling CODEINE 04/28/2012 11 - Vomiting DILAUDID (HYDROMORPHONE (BULK)) 05/12/2012 11 - Vomiting MEPERIDINE 07/28/2017 11 - Vomiting Date Reviewed: 10/13/2023 Reviewed by: Sarah Villavicencio, RN - Fully Assessed Prescriptions as of 10/17/2023 - furosemide (LASIX) 20 mg tablet Take 1 tablet by mouth once daily. - pantoprazole DR (PROTONIX) 40 mg tablet Take 40 mg by mouth once daily. - losartan (COZAAR) 100 mg tablet - atorvastatin (LIPITOR) 40 mg tablet Take 40 mg by mouth once daily. - krill oil 500 mg cap - ubidecarenone Q-10 (COENZYME Q-10) 10 mg cap - BIOTIN ORAL - vit A/vit C/vit E/zinc/copper (PRESERVISION AREDS ORAL) - venlafaxine ER (EFFEXOR XR) 75 mg 24 hr capsule Take 75 mg by mouth once daily. - TYRVAYA 0.03 mg/spray nasal spray Instill 1 spray into both nostrils twice a day - traMADol (ULTRAM) 50 mg tablet Take 50 mg by mouth three times daily as needed. - potassium chloride ER (K-DUR, KLOR-CON) 10 mEq tablet Take 10 mEq by mouth twice daily. - aspirin 81 mg cap Take by mouth. - hydrALAZINE (APRESOLINE) 25 mg tablet Take 25 mg by mouth. - VIT C/VIT E/LUTEIN/MIN/OMEGA-3 (OCUVITE ORAL) Take by mouth. - Multivitamin capsule Take 1 capsule by mouth once daily. Problem List As Of Date 10/17/2023 Noted Resolved Knee pain [M25.569] 06/04/2012 Chronic bilateral low back pain without sciatic*06/14/2016 HTN (hypertension) [I10] 02/22/2019 Hyperlipidemia [E78.5] 02/22/2019 Acid reflux [K21.9] 02/22/2019 Depression [F32.A] 04/24/2022 Anxiety [F41.9] 04/24/2022 CAD (coronary artery disease) [I25.10] 04/24/2022 Encounter Status:Closed by GENOVEVA GIBBONS on 10/17/[address] [facility] CBC W Auto Differential pane l (Bld)on 10-14-2023 Basophils (Bld) [#/Vol] 0.08 10*3/uL Normal <0.11 [facility] Comment on above: Order Comment: Speci men Type: BLOOD SPECIMEN Ordering Facility: [facility] Address: [address] [place] [address] Performed By: #### 5 7021-8 #### [facility] CLIA [id number] [address] [place] [address] [place] [address] [place] Basophils/100 WBC (Bld) 0.9 % Normal [facility] Comment on above: Order Comment: Speci men Type: BLOOD SPECIMEN Ordering Facility: [facility] Address: [address] [place] [address] Performed By: #### 5 7021-8 #### [facility] CLIA [id number] [address] [place] [address] [place] Differential cell count method Nom (Bld) Auto Normal [facility] Comment on above: Order Comment: Speci men Type: BLOOD SPECIMEN Ordering Facility: [facility] Address: [address] [place] [address] Performed By: #### 5 7021-8 #### [facility] CLIA [id number] [address] [place] [address] [place] Eosinophils (Bld) [#/Vol] 0.24 10*3/uL Normal <0.46 [facility] Comment on above: Order Comment: Speci men Type: BLOOD SPECIMEN Ordering Facility: [facility] Address: [address] [place] [address] Performed By: #### 5 7021-8 #### [facility] CLIA [id number] [address] [place] [address] [place] Eosinophils/100 WBC (Bld) 2.8 % Normal [facility] Comment on above: Order Comment: Speci men Type: BLOOD SPECIMEN Ordering Facility: [facility] Address: [address] [place] [address] Performed By: #### 5 7021-8 #### [facility] CLIA [id number] [address] [place] [address] [place] Erythrocyte distribution width (RBC) [Ratio] 13.7 % Normal 11.5-15.0 [facility] Comment on above: Order Comment: Speci men Type: BLOOD SPECIMEN Ordering Facility: [facility] Address: [address] [place] [address] Performed By: #### 5 7021-8 #### [facility] CLIA [id number] [address] [place] [address] [place] Hematocrit (Bld) [Volume fraction] 37.1 % Normal 36.0-46.0 [facility] Comment on above: Order Comment: Speci men Type: BLOOD SPECIMEN Ordering Facility: [facility] Address: [address] [place] [address] Performed By: #### 5 7021-8 #### [facility] CLIA [id number] [address] [place] [address] [place] Hemoglobin (Bld) [Mass/Vol] 12.3 g/dL Normal 11.5-15.5 [facility] Comment on above: Order Comment: Speci men Type: BLOOD SPECIMEN Ordering Facility: [facility] Address: [address] [place] [address] Performed By: #### 5 7021-8 #### [facility] CLIA [id number] [address] [place] [address] [place] Immature granulocytes (Bld) [#/Vol] 10*3/uL Normal <0.10 [facility] Comment on above: Order Comment: Speci men Type: BLOOD SPECIMEN Ordering Facility: [facility] Address: [address] [place] [address] Performed By: #### 5 7021-8 #### [facility] CLIA [id number] [address] [place] [address] [place] Immature granulocytes/100 WBC (Bld) 0.2 % Normal [facility] Comment on above: Order Comment: Speci men Type: BLOOD SPECIMEN Ordering Facility: [facility] Address: [address] [place] [address] Performed By: #### 5 7021-8 #### [facility] CLIA [id number] [address] [place] [address] [place] Lymphocytes (Bld) [#/Vol] 2.43 10*3/uL Normal 1.00-4.00 [facility] Comment on above: Order Comment: Speci men Type: BLOOD SPECIMEN Ordering Facility: [facility] Address: [address] [place] [address] Performed By: #### 5 7021-8 #### [facility] CLIA [id number] [address] [place] [address] [place] Lymphocytes/100 WBC (Bld) 28.5 % Normal [facility] Comment on above: Order Comment: Speci men Type: BLOOD SPECIMEN Ordering Facility: [facility] Address: [address] [place] [address] Performed By: #### 5 7021-8 #### [facility] CLIA [id number] [address] [place] [address] [place] MCH (RBC) [Entitic mass] 31.5 pg Normal 26.0-34.0 [facility] Comment on above: Order Comment: Speci men Type: BLOOD SPECIMEN Ordering Facility: [facility] Address: [address] [place] [address] Performed By: #### 5 7021-8 #### [facility] CLIA [id number] [address] [place] [address] [place] MCHC (RBC) [Mass/Vol] 33.2 g/dL Normal 30.5-36.0 [facility] Comment on above: Order Comment: Speci men Type: BLOOD SPECIMEN Ordering Facility: [facility] Address: [address] [place] [address] Performed By: #### 5 7021-8 #### [facility] CLIA [id number] [address] [place] [address] [place] MCV (RBC) [Entitic vol] 95.1 fL Normal 80.0-100.0 [facility] Comment on above: Order Comment: Speci men Type: BLOOD SPECIMEN Ordering Facility: [facility] Address: [address] [place] [address] Performed By: #### 5 7021-8 #### [facility] CLIA [id number] [address] [place] [address] [place] Monocytes (Bld) [#/Vol] 1.05 10*3/uL High <0.87 [facility] Comment on above: Order Comment: Speci men Type: BLOOD SPECIMEN Ordering Facility: [facility] Address: [address] [place] [address] Performed By: #### 5 7021-8 #### [facility] CLIA [id number] [address] [place] [address] [place] Monocytes/100 WBC (Bld) 12.3 % Normal [facility] Comment on above: Order Comment: Speci men Type: BLOOD SPECIMEN Ordering Facility: [facility] Address: [address] [place] [address] Performed By: #### 5 7021-8 #### [facility] CLIA [id number] [address] [place] [address] [place] Neutrophils (Bld) [#/Vol] 4.70 10*3/uL Normal 1.45-7.50 [facility] Comment on above: Order Comment: Speci men Type: BLOOD SPECIMEN Ordering Facility: [facility] Address: [address] [place] [address] Performed By: #### 5 7021-8 #### [facility] CLIA [id number] [address] [place] [address] [place] Neutrophils/100 WBC (Bld) 55.3 % Normal [facility] Comment on above: Order Comment: Speci men Type: BLOOD SPECIMEN Ordering Facility: [facility] Address: [address] [place] [address] Performed By: #### 5 7021-8 #### [facility] CLIA [id number] [address] [id number] [address] [place] Nucleated RBC (Bld) [#/Vol] 10*3/uL Normal <0.01 [facility] Comment on above: Order Comment: Speci men Type: BLOOD SPECIMEN Ordering Facility: [facility] Address: [address] [place] [address] Performed By: #### 5 7021-8 #### [facility] CLIA [id number] [address] [place] [address] [place] Nucleated RBC/100 WBC (Bld) [Ratio] 0.0 /[address] [facility] Comment on above: Order Comment: Speci men Type: BLOOD SPECIMEN Ordering Facility: [facility] Address: [address] [place] [address] Performed By: #### 5 7021-8 #### [facility] CLIA [id number] [address] [place] [address] [place] Platelet mean volume (Bld) [Entitic vol] 10.7 fL Normal 9.0-12.7 [facility] Comment on above: Order Comment: Speci men Type: BLOOD SPECIMEN Ordering Facility: [facility] Address: [address] [place] [address] Performed By: #### 5 7021-8 #### [facility] CLIA [id number] [address] [place] [address] [place] Platelets (Bld) [#/Vol] 219 10*3/uL Normal 150-400 [facility] Comment on above: Order Comment: Speci men Type: BLOOD SPECIMEN Ordering Facility: [facility] Address: [address] [place] [address] Performed By: #### 5 7021-8 #### [facility] CLIA [id number] [address] [place] [address] [place] RBC (Bld) [#/Vol] 3.90 10*6/uL Normal 3.90-5.20 [facility] Comment on above: Order Comment: Speci men Type: BLOOD SPECIMEN Ordering Facility: [facility] Address: [address] [place] [address] Performed By: #### 5 7021-8 #### [facility] CLIA [id number] [address] [place] [address] [place] WBC (Bld) [#/Vol] 8.52 10*3/uL Normal 3.70-11.00 [facility] Comment on above: Order Comment: Speci men Type: BLOOD SPECIMEN Ordering Facility: [facility] Address: [address] [place] [address] Performed By: #### 5 7021-8 #### [facility] CLIA [id number] [address] [place] [address] [place] Comprehensive metabolic 2000 panelon 10-14-2023 Albumin [Mass/Vol] 4.0 g/dL Normal 3.9-4.9 [facility] [facility] Comment on above: Order Comment: Speci men Type: BLOOD SPECIMEN Ordering Facility: [facility] Address: [address] [place] [address] Performed By: #### 1 9123-9, 78732-1, 18236-5, HSTNT #### [facility] CLIA [id number] [address] [place] [address] [place] ALP [Catalytic activity/Vol] 111 U/L Normal 34-123 [facility] Comment on above: Order Comment: Speci men Type: BLOOD SPECIMEN Ordering Facility: [facility] Address: [address] [place] [address] Performed By: #### 1 9123-9, 23906-7, 98315-9, HSTNT #### [facility] CLIA [id number] [address] [place] [address] [place] ALT [Catalytic activity/Vol] 13 U/L Normal 7-38 [facility] Comment on above: Order Comment: Speci men Type: BLOOD SPECIMEN Ordering Facility: [facility] Address: [address] [place] [address] Performed By: #### 1 9123-9, 02838-4, 21886-1, HSTNT #### [facility] CLIA [id number] [address] [place] [address] [place] Anion gap [Moles/Vol] 13 mmol/L Normal 9-18 [facility] Comment on above: Order Comment: Speci men Type: BLOOD SPECIMEN Ordering Facility: [facility] Address: [address] [place] [address] Performed By: #### 1 9123-9, 08655-1, 51812-9, HSTNT #### [facility] CLIA [id number] [address] [place] [address] [place] AST [Catalytic activity/Vol] 14 U/L Normal 13-35 [facility] Comment on above: Order Comment: Speci men Type: BLOOD SPECIMEN Ordering Facility: [facility] Address: [address] [place] [address] Performed By: #### 1 9123-9, 39722-3, 95947-4, HSTNT #### [facility] CLIA [id number] [address] [place] [address] [place] Bilirubin [Mass/Vol] 0.5 mg/dL Normal 0.2-1.3 [facility] Comment on above: Order Comment: Speci men Type: BLOOD SPECIMEN Ordering Facility: [facility] Address: [address] [place] [address] Performed By: #### 1 9123-9, 50682-3, 19896-3, HSTNT #### [facility] CLIA [id number] [address] [place] [address] [place] Calcium [Mass/Vol] 9.4 mg/dL Normal 8.5-10.2 [facility] Comment on above: Order Comment: Speci men Type: BLOOD SPECIMEN Ordering Facility: [facility] Address: [address] [place] [address] Performed By: #### 1 9123-9, 74074-8, 35463-8, HSTNT #### [facility] CLIA [id number] [address] [place] [address] [place] Chloride [Moles/Vol] 105 mmol/L Normal 97-105 [facility] Comment on above: Order Comment: Speci men Type: BLOOD SPECIMEN Ordering Facility: [facility] Address: [address] [place] [address] Performed By: #### 1 9123-9, 98470-1, 23326-3, HSTNT #### [facility] CLIA [id number] [address] [place] [address] [place] CO2 [Moles/Vol] 22 mmol/L Normal 22-30 [facility] Comment on above: Order Comment: Speci men Type: BLOOD SPECIMEN Ordering Facility: [facility] Address: [address] [place] [address] Performed By: #### 1 9123-9, 78059-2, 42679-0, HSTNT #### [facility] CLIA [id number] [address] [place] [address] [place] Creatinine [Mass/Vol] 1.36 mg/dL High 0.58-0.96 [facility] Comment on above: Order Comment: Speci men Type: BLOOD SPECIMEN Ordering Facility: [facility] Address: [address] [place] [address] Performed By: #### 1 9123-9, 75274-4, 85949-4, HSTNT #### [facility] CLIA [id number] [address] [place] [address] [place] Creatinine and Glomerular filtration rate.predicted panel (S/P/Bld) 40 mL/min/1.73m??? Low >=60 [facility] Comment on above: Order Comment: Speci men Type: BLOOD SPECIMEN Ordering Facility: [facility] Address: [address] [place] [address] Result Comment: Amy mated Glomerular Filtration Rate (eGFR) is calculated using the 2020 CKD-EPI creatinine equation. This equation utilizes serum creatinine, sex, and age as parameters. The creatinine assay has traceable calibration to isotope dilution-mass spectrometry. Refer to KDIGO guidelines for clinical interpretation. In patients with unstable renal function, e.g. those with acute kidney injury, the eGFR may not accurately reflect actual GFR. Performed By: #### 1 9123-9, 75025-5, 89121-4, HSTNT #### [facility] CLIA [id number] [address] [place] [address] [place] Glucose [Mass/Vol] 103 mg/dL High 74-99 [facility] Comment on above: Order Comment: Tremayne bill Type: BLOOD SPECIMEN Ordering Facility: [facility] Address: [address] [place] [address] Result Comment: The [place] [employer] (ADA) provides guidance for cutoff values for fasting glucose and random glucose. The ADA defines fasting as no caloric intake for at least 8 hours. Fasting plasma glucose results between 100 to 125 mg/dL indicate increased risk for diabetes (prediabetes). Fasting plasma glucose results greater than or equal to 126 mg/dL meet the criteria for diagnosis of diabetes. In the absence of unequivocal hyperglycemia, results should be confirmed by repeat testing. In a patient with classic symptoms of hyperglycemia or hyperglycemic crisis, random plasma glucose results greater than or equal to 200 mg/dL meet the criteria for diagnosis of diabetes. Reference: Standards of Medical Care in Diabetes 2016, [place] [employer]. Diabetes Care. 2016.39(Suppl 1). Performed By: #### 1 9123-9, 66776-9, 21227-9, HSTNT #### [facility] CLIA [id number] [address] [place] [address] [place] Potassium [Moles/Vol] 4.6 mmol/L Normal 3.7-5.1 [facility] Comment on above: Order Comment: Tremayne bill Type: BLOOD SPECIMEN Ordering Facility: [facility] Address: [address] [place] [address] Performed By: #### 1 9123-9, 56049-0, 86899-4, HSTNT #### [facility] CLIA [id number] [address] [place] [address] [place] Protein [Mass/Vol] 6.3 g/dL Normal 6.3-8.0 [facility] Comment on above: Order Comment: Speci men Type: BLOOD SPECIMEN Ordering Facility: [facility] Address: [address] [place] [address] Performed By: #### 1 9123-9, 56091-6, 13447-3, HSTNT #### [facility] CLIA [id number] [address] [place] [address] [place] Sodium [Moles/Vol] 140 mmol/L Normal 136-144 [facility] Comment on above: Order Comment: Speci men Type: BLOOD SPECIMEN Ordering Facility: [facility] Address: [address] [place] [address] Performed By: #### 1 9123-9, 44547-2, 88987-2, HSTNT #### [facility] CLIA [id number] [address] [place] [address] [place] Urea nitrogen [Mass/Vol] 21 mg/dL Normal 7-21 [facility] Comment on above: Order Comment: Speci men Type: BLOOD SPECIMEN Ordering Facility: [facility] Address: [address] [place] [address] Performed By: #### 1 9123-9, 90626-1, 04491-1, HSTNT #### [facility] CLIA [id number] [address] [place] [address] [place] D dimer FEU PPP-mCncon 10-13 Fibrin D-dimer FEU (PPP) [Mass/Vol] 410 ng/mL FEU Normal <500 [facility] Comment on above: Order Comment: Speci men Type: BLOOD SPECIMEN Ordering Facility: [facility] Address: [address] [place] [address] Performed By: #### 3 4528-0, 30040-1 #### [facility] CLIA [id number] [address] [place] [address] [place] [address] [place] [id number] 10-14-2023 ECG01 Ventricular Rate : 6 3 BPM Atrial Rate : 63 BPM P-R Interval : 158 ms QRS Duration : 72 ms Q-T Interval : 420 ms QTC Calculation(Bazett) : 429 ms Calculated P [place] : 31 degrees Calculated R [place] : 63 degrees Calculated T [place] : 61 degrees NORMAL SINUS RHYTHM NORMAL ECG Confirmed by MD ODOM MATTHEW ([id number]), scientific publications editor JOI CAGLE ([id number]) on 10/17/2023 7:48:10 AM NAME : SON HUBBARD PID : [id number] : 1945 Gender : Female Race : ORD : Procedure Date : Oct 13 2023 23:03:23 Edit Date : Oct 17 2023 07:48:14 Diagnosis: NORMAL SINUS RHYTHM NORMAL ECG Confirmed by MD ODOM MATTHEW ([id number]), scientific publications editor JOI CAGLE ([id number]) on 10/17/2023 7:48:10 AM Test Reason : Location : 2 : EDNS 017 Overread By : MD ODOM MATTHEW Edited By : JOI CAGLE Referred By : , Acquired by : MS, [facility] ED NOTEon 10-14-2023 ED NOTE HNO ID: [id number] Author: GILMER BERRY RN Service: Emergency Medicine Author Type: Registered Nurse Type: ED Notes Filed: 10/14/2023 07:37 Note Text: Discussed discharge paperwork, follow-up and signs AND sx of when to return to the ER with patient. Patient verbalizes understanding and left with AVS in hand, ambulatory, steady gait, NAD. Normal [facility] ED NOTE HNO ID: [id number] Author: SENIA NUÑEZ CT Service: Emergency Medicine Author Type: Clinical Accident Report Clerk Type: ED Notes Filed: 10/14/2023 01:08 Note Text: Updating pt vs Normal [facility] ED PROV NOTEon 10-14-2023 ED PROV NOTE HNO ID: [id number] Author: CHRISTIE PEÑALOZA MD Service: Emergency Medicine Author Type: Physician Type: ED Provider Notes Filed: 10/16/2023 00:13 Note Text: ED Provider Note Patient Name: Son Hubbard : 1945 SERVICE DATE: 10/13/23 History Patient presents with: Shortness of Breath: For a couple days started on amio and eliquis for Afib 78-year-old female with history of mitral valve disease diagnosed at a hospital in [place] and recent atrial fibrillation who has been admitted twice over the last 2 weeks for A-fib with RVR managed with amiodarone. Patient is also on Eliquis. She states she was not tolerating the amiodarone so her primary care doctor decreased the amount. She comes to the ED secondary to significant shortness of breath that is limiting her ability to even walk her dog. This has been over the last 2 weeks. PAST MEDICAL HISTORY Diagnosis Date CAD (coronary artery disease) 04/24/2022 Depression GERD (gastroesophageal reflux disease) HTN (hypertension) Hyperlipidemia Knee pain Pseudophakia of both eyes Seasonal allergic rhinitis PAST SURGICAL HISTORY Procedure Laterality Date ARTHRP KNE CONDYLEANDPLATU MEDIALANDLAT COMPARTMENTS 05/11/2012 Knee replacement, total right PAST SURGICAL HISTORY OF 08/11/2010 right knee partial replacement PAST SURGICAL HISTORY OF bilat foot surgery for plantar faciitis PAST SURGICAL HISTORY OF arthroscopy bilat knees POST-CATARACT LASER SURGERY Bilateral 10/10/2022 REMV CATARACT EXTRACAP,INSERT LENS Right 05/15/2022 REMV CATARACT EXTRACAP,INSERT LENS Left 05/01/2022 FAMILY HISTORY Problem Relation Age of Onset Coronary Artery Disease Father Cancer Mother Social History Tobacco Use Smoking status: Former Packs/day: 0.70 Years: 4.00 Additional pack years: 0.00 Total pack years: 2.80 Types: Cigarettes Quit date: 04/28/1990 Years since quittin.4 Smokeless tobacco: Former Substance and Sexual Activity Alcohol use: No Drug use: No Sexual activity: Not on file Comment: not asked ALLERGIES Allergen Reactions Serina Inhibitors Rash Amlodipine Swelling Codeine Vomiting Dilaudid [Hydromorp* Vomiting Meperidine Vomiting Review of Systems Constitutional: Positive for activity change and fatigue. Negative for diaphoresis and fever. Respiratory: Positive for shortness of breath. Cardiovascular: Negative for chest pain, palpitations and leg swelling. Gastrointestinal: Negative for diarrhea, nausea and vomiting. Physical Exam Vitals BP Pulse Temp Temp src Resp SpO2 Weight Height 10/13/235 10/13/23225410/13/23225410/14/23 0106 10/13/23225410/13/23225410/13/232254 -- 180/91 71 36.6 ?C (97.8 ?F) Temporal 16 97 % 79.8 kg (176 lb) Physical Exam Vitals and nursing note reviewed. Constitutional: General: She is not in acute distress. Appearance: She is not ill-appearing, toxic-appearing or diaphoretic. HENT: Head: Normocephalic and atraumatic. Nose: Nose normal. Mouth/Throat: Mouth: Mucous membranes are moist. Eyes: General: Right eye: No discharge. Left eye: No discharge. Cardiovascular: Rate and Rhythm: Normal rate and regular rhythm. Pulses: Normal pulses. Heart sounds: Murmur heard. Pulmonary: Effort: Pulmonary effort is normal. Breath sounds: Rales present. Abdominal: Tenderness: There is no abdominal tenderness. There is no guarding or rebound. Musculoskeletal: Cervical back: Neck supple. Right lower leg: No edema. Left lower leg: No edema. Skin: General: Skin is warm and dry. Capillary Refill: Capillary refill takes less than 2 seconds. Neurological: Mental Status: She is alert and oriented to person, place, and time. Psychiatric: Behavior: Behavior normal. Diagnostic Testing ED Labs Ordered and Reviewed COMP METABOLIC PANEL - Abnormal; Notable for the following components: Result Value Ref Range Glucose 103 (*) 74 - 99 mg/dL Creatinine 1.36 (*) 0.58 - 0.96 mg/dL Estimated Glomerular Filtration Rate 40 (*) >=60 mL/min/1.73m? All other components within normal limits NT PRO BNP - Abnormal; Notable for the following components: NT Pro BNP 719 (*) <450 pg/mL All other components within normal limits HIGH SENSITIVITY TROPONIN T - Abnormal; Notable for the following components: BAILEY High Sensitivity 20 (*) <12 ng/L All other components within normal limits CBC + DIFF - Abnormal; Notable for the following components: Abs [place] 1.05 (*) <0.87 k/uL All other components within normal limits MAGNESIUM BLD - Normal PROTHROMBIN TIME/PT - Normal D-DIMER Narrative: 500 ng/mL FEU is the D Dimer cutoff to exclude DVT (deep vein thrombosis) and PE (pulmonary embolism) in patients with a low pre test probability. Supplemental Comment: In patients over 50 years with a low pre test probability for DVT and/or PE, an age adjusted D dimer cutoff can be calculated as [age x 10] ng/mL FEU. (more content not included)... Normal [facility] ED Triage Noteon 10-14-2023 ED Triage Note HNO ID: [id number] Author: GORAN SOLIZ JR, MD Service: Emergency Medicine Author Type: Physician Type: ED Triage Notes Filed: 10/13/2023 22:58 Note Text: ED INTAKE NOTE Patient Name: Son Hubbard Service Date: 10/13/23 BRIEF HPI: 78-year-old female with a recent diagnosis of atrial fibrillation as well as shortness of breath with chest heaviness for the past couple of days. She was started on amiodarone and Eliquis 1-1/2 to 2 weeks ago. She denies fevers or chills. BRIEF EXAM: Awake and Alert. In no apparent distress. INTAKE WORKUP: Labs EKG Chest x-ray No diagnosis found. Provider examination performed via virtual platform with assistance from bedside clinician. SIGNATURE: Goran Soliz MD Normal [facility] Fibrin D-dimer FEU (PPP) [Ma ss/Vol]on 10-14-2023 D DIMER AGE-RELATED CUTOFF 770 ng/mL FEU Normal [facility] Comment on above: Order Comment: Speci men Type: BLOOD SPECIMEN Ordering Facility: [facility] Address: [address] [place] [address] Performed By: #### 3 4528-0, 66044-9 #### [facility] CLIA [id number] [address] [place] [address] [place] [address] [place] HIGH SENSITIVITY TROPONIN To n 10-14-2023 Troponin T.cardiac High sensitivity method [Mass/Vol] 20 ng/L High <12 [facility] Comment on above: Order Comment: Speci men Type: BLOOD SPECIMEN Ordering Facility: [facility] Address: [address] [place] [address] Result Comment: When assessing risk for acute coronary syndromes: In patients undergoing blood draw greater than or equal to 2 hours from symptom onset, with history of very low to moderate risk and non-ischemic ECG, an initial hs-Troponin T less than 12 ng/L AND a 1 hour delta hs-Troponin T less than 3 ng/L should be considered very low risk for 30 day MACE. Performed By: #### 1 9123-9, 41786-1, 77465-9, HSTNT #### [facility] CLIA [id number] [address] [place] [address] [place] HIGH SENSITIVITY TROPONIN T (INITIAL)on 10-14-2023 Troponin T.cardiac High sensitivity method [Mass/Vol] 18 ng/L High <12 [facility] Comment on above: Order Comment: Tremayne bill Type: BLOOD SPECIMEN Ordering Facility: [facility] Address: [address] [place] [address] Result Comment: When assessing risk for acute coronary syndromes: In patients undergoing blood draw greater than or equal to 2 hours from symptom onset, with history of very low to moderate risk and non-ischemic ECG, an initial hs-Troponin T less than 12 ng/L AND a 1 hour delta hs-Troponin T less than 3 ng/L should be considered very low risk for 30 day MACE. Performed By: #### L [id number] #### [facility] CLIA [id number] [address] [place] [address] [place] HIGH SENSITIVITY TROPONIN T (SECOND)on 10-14-2023 Troponin T.cardiac High sensitivity method [Mass/Vol] 19 ng/L High <12 [facility] Comment on above: Order Comment: Tremayne bill Type: BLOOD SPECIMEN Ordering Facility: [facility] Address: [address] [place] [address] Result Comment: When assessing risk for acute coronary syndromes: In patients undergoing blood draw greater than or equal to 2 hours from symptom onset, with history of very low to moderate risk and non-ischemic ECG, an initial hs-Troponin T less than 12 ng/L AND a 1 hour delta hs-Troponin T less than 3 ng/L should be considered very low risk for 30 day MACE. Performed By: #### L [id number] #### [facility] CLIA [id number] [address] [place] [address] [place] Magnesium [facility] 10-13 Magnesium [Mass/Vol] 1.9 mg/dL Normal 1.7-2.3 [facility] Comment on above: Order Comment: Tremayne bill Type: BLOOD SPECIMEN Ordering Facility: [facility] Address: [address] [place] [address] Performed By: #### 1 9123-9, 99852-8, 25068-3, HSTNT #### [facility] CLIA [id number] [address] [place] [address] [place] NT-proBNP [facility] 10-13 Natriuretic peptide.B prohormone N-Terminal [Mass/Vol] 719 pg/mL High <450 [facility] Comment on above: Order Comment: Tremayne bill Type: BLOOD SPECIMEN Ordering Facility: [facility] Address: [address] [place] [address] Performed By: #### 1 9123-9, 35322-1, 74508-3, HSTNT #### [facility] IA [id number] [address] [place] [address] [place] PT panel Coag (PPP)on 2023 INR Coag (PPP) [Relative time] 1.1 {INR} Normal 0.9-1.3 [facility] Comment on above: Order Comment: Tremayne bill Type: BLOOD SPECIMEN Ordering Facility: [facility] Address: [address] [place] [address] Result Comment: Janeth min K Antagonist (VKA) Therapeutic Range: INR 2 to 3 (Target INR of 2.5) Note: For patients treated with VKA drugs, such as warfarin, the [place] [employer] 2012 Guideline recommends a therapeutic INR range of 2 to 3 (target INR of 2.5). This recommendation includes high-risk patients with antiphospholipid syndrome with previous arterial or venous thromboembolism, current-generation mechanical or bioprosthetic aortic heart valve replacement. Note: Patients with mechanical aortic valve replacement and additional risk factors for thromboembolic events (atrial fibrillation, previous thromboembolism, LV dysfunction, hypercoagulable conditions) or an older generation mechanical AVR (i.e., ball in-Cage) or any mechanical MVR should have a INR therapeutic range of 2.5 to 3.5 (target INR of 3). Matteo ORTIZ, et al. Chest 2012, 141:7S-47S Mary RA, et al. [facility] 2017, 70: 252-289 Performed By: #### 3 4528-0, 19872-7 #### [facility] CLIA [id number] [address] [place] [address] [place] PT Coag (PPP) [Time] 11.3 s Normal 9.7-13.0 [facility] Comment on above: Order Comment: Speci men Type: BLOOD SPECIMEN Ordering Facility: [facility] Address: [address] [place] [address] Performed By: #### 3 4528-0, 61516-9 #### [facility] CLIA [id number] [address] [place] [address] [place] XR CHEST 1V FRONTAL PORTon 0 10-14-2023 XR CHEST 1V FRONTAL PORT * * *Final Report* * * DATE OF EXAM: Oct 14 2023 2:26AM EGX [id number] - XR CHEST 1V FRONTAL PORT / PROCEDURE REASON: Shortness of breath * * * * Physician Interpretation * * * * EXAMINATION: CHEST RADIOGRAPH (PORTABLE SINGLE VIEW AP) Exam Date/Time: 10/14/2023 2:26 AM CLINICAL HISTORY: Shortness of breath, Chest pain MQ: XCPR_5 Comparison: None available. RESULT: Lines, tubes, and devices: None. Lungs and pleura: No consolidation or overt edema. Blunting of the costophrenic angles. Cardiomediastinal silhouette: Prominent cardiomediastinal silhouette, accentuated by technique. Other: No bony abnormalities. IMPRESSION: Small pleural effusions and/or pleural thickening. Document Design Specialist: SCOTT Transcribe Date/Time: Oct 14 2023 3:07A Dictated by : WADE BOWMAN, This examination was interpreted and the report reviewed and electronically signed by: MEHDI ROBLEDO MD on Oct 14 2023 3:35AM EST [id number] [facility] 36on 09-22-2023 36 Patient returned our phone call to get Cardiopulmonary Exercise Test scheduled. She told staff that she is not going to do this test and wanted us to inform her provider. When asked why she did not want to do it, she replied that she just doesn't want to. We will inform provider. [facility] 36on 09-19-2023 36 Left voicemail for patient to schedule cardiopulmonary exercise test. [facility] Office Visiton 09-03-2023 Follow-up visit [id number] Son Hubbard 1945 F Date Provider Department Center 09/03/2023 [facility] Family History Problem Relation Age of Onset Coronary artery disease Father Hypertension Father Family Status - Relation Status Age at Father Level of Service:05300 [place] OFFICE/OUTPATIENT ESTABLISHED MOD MDM 30 MIN [facility] Documentationon 08-06-2023 Documentation [id number] Son Hubbard 1945 F Date Provider Department Center 08/06/2023 [facility] Family History Problem Relation Age of Onset Coronary artery disease Father Hypertension Father Family Status - Relation Status Age at Father Normal [facility] HPon 08-06-2023 HP H&P reviewed. The patient was examined and there are no changes to the H&P. [facility] NURSNOTEon 08-06-2023 NURSNOTE Patient to be seen i n clinic by Dr. Doran or nurse practitioner in 1 month to discuss VIOLA results and medical plan. Message left with [facility] to call patient with appoint date and time. Patient provided the number ([phone]) to call [facility] if she does not receive an appointment call by 08/08/2023. [facility] NURSNOTE Bedside swallow stud y completed and passed. [facility] NURSNOTE RN educated pt on d/ c instructions. RN encouraged pt to voice any questions or concerns. Pt verbalizes no questions or concerns at this time. Pt was wheeled off of unit with all of belongings. [facility] Prep for Procedureon 023 Prep for Procedure [id number] Son Hubbard 1945 Date Provider Department [place] 08/06/2023 [facility] LANA Cook Family History Problem Relation Age of Onset Coronary artery disease Father Hypertension Father Family Status - Relation Status Age at Father [facility] Telephoneon 07-28-2023 Telephone [id number] Son Hubbard 1945 Provider Department [place] 07/28/2023 [address] [facility] Family History Problem Relation Age of Onset Coronary artery disease Father Hypertension Father Family Status - Relation Status Age at Father [facility] 38on 07-08-2023 38 *Resume lasix. Take 20mg daily x1 week then go back to every other day. *Have stress test done. *Watch your fluid intake. Try to limit to 2 liters a day. *Eat a low sodium diet. [facility] HPon 07-08-2023 HP Patient here for follow up [facility] for SOB and chest pain. She was started on isosorbide. She is scheduled for outpatient stress test next week. She denies chest pain. SOB is improving. C/o LE edema which resolves by morning. C/o fatigue. Review of Systems Cardiovascular: Positive for leg swelling. All other systems reviewed and are negative. [facility] Office Visiton 07-08-2023 Follow-up visit [id number] Son Hubbard 1945 Date Provider Department Center 07/08/2023 Lila-DINORAH MONTES LANA Rodríguez Family History Problem Relation Age of Onset Coronary artery disease Father Hypertension Father Family Status - Relation Status Age at Father Level of Service:17788 [place] OFFICE/OUTPATIENT ESTABLISHED MOD MDM 30-39 MIN Reason for Visit and Comments: Fatigue [46] Congestive Heart Failure [127] Edema [0240097755] Shortness of Breath [092142] Normal [facility] MM screening mammo BI w/CADo n 06-11-2023 MM screening mammo BI w/CAD [facility] [place] [address] [place] [address] Mammography Report Signed Patient: Son Hubbard MR#: [id number] 1827 : 1945 Acct:[id number] Age/Sex: 78 / F ADM Date: 06/11/23 Loc: [place] Room: Type: [facility] Attending Dr: Referral Self Copies to: Pat [...] Charlie Green M.D.06/11/2023 12:04 PM Dictation Location: [facility] Transcribed By: HERVE 06/11/23 1204 Dictated By: Charlie Green II, MD 06/11/23 1201 Signed By: 06/11/23 1204 [facility] Office Visiton 03-28-2023 Follow-up visit [id number] Son Hubbard 1945 F Date Provider Department Center 03/28/2023 [facility] Family History Problem Relation Age of Onset Coronary artery disease Father Hypertension Father Family Status - Relation Status Age at Father Level of Service:96847 [place] OFFICE/OUTPATIENT ESTABLISHED LOW MDM 20-29 MIN Reason for Visit and Comments: Follow-up [603508] - 6 MONTH FOLLOW UP Normal [facility] INSULINon 11-13-2022 Insulin 16.2 uIU/mL Normal 2.6-24.9 [facility] Comment on above: Performed By: #### I NSULIN ####[facility] [id number] [address]Dr. Isi Britton CBC AUTO DIFFon 11-12-2022 BASO # 0.0 103/ul Normal 0.0-0.1 [facility] Comment on above: Performed By: #### C BC #### [facility] Laboratory [address] [address] [address] Isi Britton Basophils/100 WBC (Bld) 0.6 % Normal 0.2-2.0 [facility] Comment on above: Performed By: #### C BC #### [facility] [address] [address] [address] Isi Britton EO # 0.1 103/ul Normal 0.0-0.7 [facility] Comment on above: Performed By: #### C BC #### [facility] [address] [address] [address] Isi Britton Eosinophils/100 WBC (Bld) 1.3 % Normal 0.9-7.0 [facility] Comment on above: Performed By: #### C BC #### [facility] [address] [address] [address] Isi Britton Erythrocyte distribution width (RBC) [Ratio] 13.1 % Normal 11.0-15.0 [facility] Comment on above: Performed By: #### C BC #### [facility] [address] [place] [address] Dr. Isi Britton Hematocrit (Bld) [Volume fraction] 40.1 % Normal 36.0-48.0 [facility] Comment on above: Performed By: #### C BC #### [facility] [address] [place] [address] Dr. Isi Britton Hemoglobin (Bld) [Mass/Vol] 13.5 g/dL Normal 12.0-16.0 [facility] Comment on above: Performed By: #### C BC #### [facility] [address] [place] [address] Dr. Isi Britton IG # 0.01 10e3/ul Normal 0.00-0.03 [facility] Comment on above: Performed By: #### C BC #### [facility] [address] [place] [address] Dr. Isi Britton IG % 0.2 % Normal 0.0-0.5 [facility] Comment on above: Performed By: #### C BC #### [facility] [address] [place] [address] Dr. Isi Britton LYMPH # 1.6 103/ul Normal 1.2-3.8 [facility] Comment on above: Performed By: #### C BC #### [facility] [address] [place] [address] Dr. Isi Britton Lymphocytes/100 WBC (Bld) 24.9 % Normal 20.5-60.0 [facility] Comment on above: Performed By: #### C BC #### [facility] [address] [place] [address] Dr. Isi Britton MANUAL DIFF REQ NO Normal [facility] Comment on above: Performed By: #### C BC #### [facility] [address] [place] [address] Dr. Isi Britton MCH (RBC) [Entitic mass] 31.9 pg Normal 26.7-34.0 [facility] Comment on above: Performed By: #### C BC #### [facility] [address] [address] [address] Isi Britton MCHC (RBC) [Mass/Vol] 33.7 g/dL Normal 29.9-35.2 [facility] Comment on above: Performed By: #### C BC #### [facility] [address] [address] [address] Isi Britton MCV (RBC) [Entitic vol] 94.8 fL Normal 81.0-99.0 [facility] Comment on above: Performed By: #### C BC #### [facility] [address] [place] [address] Dr. Isi Britton MONO # 0.6 103/ul Normal 0.3-0.8 [facility] Comment on above: Performed By: #### C BC #### [facility] [address] [place] [address] Dr. Isi Britton Monocytes/100 WBC (Bld) 10.1 % Normal 1.7-12.0 [facility] Comment on above: Performed By: #### C BC #### [facility] [address] [place] [address] Dr. Isi Britton NEUT # 3.9 103/ul Normal 1.4-6.5 [facility] Comment on above: Performed By: #### C BC #### [facility] [address] [place] [address] Dr. Isi Britton Neutrophils/100 WBC (Bld) 62.9 % Normal 43.0-75.0 [facility] Comment on above: Performed By: #### C BC #### [facility] [address] [address] [address] Isi Britton Platelet mean volume (Bld) [Entitic vol] 10.5 fL Normal 9.5-13.5 [facility] Comment on above: Performed By: #### C BC #### [facility] [address] [address] [address] Isi Britton PLT 220 103/ul Normal 150-450 [facility] Comment on above: Performed By: #### C BC #### [facility] [address] [address] [address] Isi Britton RBC 4.23 106/ul Normal 4.20-5.40 [facility] Comment on above: Performed By: #### C BC #### [facility] [address] [address] [address] Isi Britton WBC 6.2 103/ul Normal 4.0-11.0 [facility] Comment on above: Performed By: #### C BC #### [facility] [address] [address] [address] Isi Britton FREE T3on 11-12-2022 FREE T3 2.21 pg/mlL Normal 2.18-3.98 [facility] Comment on above: Performed By: #### L IPID, CMP, T7, FT3, TSH #### [facility] [address] [address] [address] Isi Britton FREE T4on 11-12-2022 Free T4 [Mass/Vol] 1.04 ng/dL Normal 0.76-1.46 [facility] Comment on above: Performed By: #### I RONI, FT4 ####[facility] [id number] [address]Dr. Isi Britton FREE THYROXINE INDEX T7on FTI 3.38 Normal 1.30-4.50 [facility] Comment on above: Performed By: #### L IPID, CMP, T7, FT3, TSH #### [facility] [address] [address] [address] Isi Britton T3U 36.0 % Normal 30.0-39.0 [facility] Comment on above: Performed By: #### L IPID, CMP, T7, FT3, TSH #### [facility] [address] [place] [address] Dr. Isi Britton T4 [Mass/Vol] 9.40 ug/dL Normal 4.80-13.90 [facility] Comment on above: Performed By: #### L IPID, CMP, T7, FT3, TSH #### [facility] [address] [address] [address] Isi Britton GLYCOHEMOGLOBIN A1Con 2022 ADA RECOMMENDATION SEE BELOW Normal [facility] Comment on above: Result Comment: ADA RECOMMENDED LIMIT 4.0 - 6.0 ADA THERAPEUTIC TARGET < 7.0 ACTION SUGGESTED > 7.0 Performed By: #### A 1C #### [facility] [address] [address] [address] Isi Britton Glucose [Mass/Vol] 111 mg/dL Normal [facility] Comment on above: Performed By: #### A 1C #### [facility] [address] [address] [address] Isi Britton HbA1c (Bld) [Mass fraction] 5.5 % Normal 4.5-6.2 [facility] Comment on above: Performed By: #### A 1C #### [facility] [address] [place] [address] Dr. Isi Britton IRONon 11-12-2022 Iron [Mass/Vol] 71.0 ug/dL Normal 50.0-170.0 [facility] Comment on above: Performed By: #### I RONI, FT4 #### [facility] [address] [place] [address] Dr. Isi Britton LIPID PROFILEon 11-12-2022 CHOL-HDL RATIO NORM SEE BELOW Normal [facility] Comment on above: Result Comment: 3.3 - 4.4 LOW RISK 4.4 - 7.1 AVERAGE RISK 7.1 - 11.0 MODERATE RISK >11.0 HIGH RISK Performed By: #### L IPID, CMP, T7, FT3, TSH #### [facility] [address] [address] [address] Isi Britton Cholesterol [Mass/Vol] 139 mg/dL Normal <=200 [facility] Comment on above: Performed By: #### L IPID, CMP, T7, FT3, TSH #### [facility] [address] [address] [address] Isi Britton Cholesterol in HDL [Mass/Vol] 70 mg/dL Critically high 40-60 [facility] Comment on above: Performed By: #### L IPID, CMP, T7, FT3, TSH #### [facility] [address] [address] [address] Isi Britton Cholesterol in LDL [Mass/Vol] 49.4 mg/dL Normal [facility] Comment on above: Performed By: #### L IPID, CMP, T7, FT3, TSH #### [facility] [address] [address] [address] Isi Britton Cholesterol.total/Ch olesterol in HDL [Mass ratio] 2.0 {ratio} Normal [facility] Comment on above: Performed By: #### L IPID, CMP, T7, FT3, TSH #### [facility] [address] [address] [address] Isi Britton HDL NORMAL > or = 60 mg/dl - LO W CARDIOVASCULAR RISK <40 mg/dl - HIGH CARDIOVASCULAR RISK Normal [facility] Comment on above: Performed By: #### L IPID, CMP, T7, FT3, TSH #### [facility] [address] [place] [address] Dr. Isi Britton LDL CALC NORMAL SEE BELOW Normal [facility] Comment on above: Result Comment: <100 mg/dl OPTIMAL 100 - 129 mg/dl NEAR OR ABOVE OPTIMAL 130 - 159 mg/dl BORDERLINE HIGH 160 - 189 mg/dl HIGH >190 mg/dl VERY HIGH Performed By: #### L IPID, CMP, T7, FT3, TSH #### [facility] [address] [address] [address] Isi Britton Triglyceride [Mass/Vol] 98 mg/dL Normal <=150 [facility] Comment on above: Performed By: #### L IPID, CMP, T7, FT3, TSH #### [facility] [address] [place] [address] Dr. Isi Britton VLDL CALC 19.6 mg/dL Normal [facility] Comment on above: Performed By: #### L IPID, CMP, T7, FT3, TSH #### [facility] [address] [place] [address] Dr. Isi Britton PROF 14(COMP METB)on 023 Albumin [Mass/Vol] 3.9 g/dL Normal 3.4-5.0 [facility] Comment on above: Performed By: #### L IPID, CMP, T7, FT3, TSH #### [facility] [address] [place] [address] Dr. Isi Britton Albumin/Globulin [Mass ratio] 1.2 {ratio} Normal [facility] Comment on above: Performed By: #### L IPID, CMP, T7, FT3, TSH #### [facility] [address] [place] [address] Dr. Isi Britton ALP [Catalytic activity/Vol] 99 U/L Normal 46-116 [facility] Comment on above: Performed By: #### L IPID, CMP, T7, FT3, TSH #### [facility] [address] [place] [address] Dr. Isi Britton ALT [Catalytic activity/Vol] 26 U/L Normal 14-59 [facility] Comment on above: Performed By: #### L IPID, CMP, T7, FT3, TSH #### [facility] [address] [place] [address] Dr. Isi Britton Anion gap [Moles/Vol] 13.1 mmol/L Normal [facility] Comment on above: Performed By: #### L IPID, CMP, T7, FT3, TSH #### [facility] [address] [place] [address] Dr. Isi Britton AST [Catalytic activity/Vol] 20 U/L Normal 15-37 [facility] Comment on above: Performed By: #### L IPID, CMP, T7, FT3, TSH #### [facility] [address] [place] [address] Dr. Isi Britton Bilirubin [Mass/Vol] 0.9 mg/dL Normal 0.2-1.0 [facility] Comment on above: Performed By: #### L IPID, CMP, T7, FT3, TSH #### [facility] [address] [place] [address] Dr. Isi Britton Calcium [Mass/Vol] 9.4 mg/dL Normal 8.5-10.1 [facility] Comment on above: Performed By: #### L IPID, CMP, T7, FT3, TSH #### [facility] [address] [place] [address] Dr. Isi Britton Chloride [Moles/Vol] 104 mmol/L Normal 98-107 [facility] Comment on above: Performed By: #### L IPID, CMP, T7, FT3, TSH #### [facility] [address] [place] [address] Dr. Isi Britton CO2 [Moles/Vol] 29.2 mmol/L Normal 21.0-32.0 [facility] Comment on above: Performed By: #### L IPID, CMP, T7, FT3, TSH #### [facility] [address] [place] [address] Dr. Isi Britton Creatinine [Mass/Vol] 1.36 mg/dL Critically high 0.55-1.02 [facility] Comment on above: Performed By: #### L IPID, CMP, T7, FT3, TSH #### [facility] [address] [place] [address] Dr. Isi Britton EGFR-AF CHINESE 46 mL/min/1.73m2 Critically low >=60 [facility] Comment on above: Performed By: #### L IPID, CMP, T7, FT3, TSH #### [facility] [address] [place] [address] Dr. Isi Britton EGFR-NON AF CHINESE 38 mL/min/1.73m2 Critically low >=60 [facility] Comment on above: Performed By: #### L IPID, CMP, T7, FT3, TSH #### [facility] [address] [place] [address] Dr. Isi Britton Globulin (S) [Mass/Vol] 3.3 g/dL Normal [facility] Comment on above: Performed By: #### L IPID, CMP, T7, FT3, TSH #### [facility] [address] [place] [address] Dr. Isi Britton Glucose [Mass/Vol] 107 mg/dL Critically high 74-106 [facility] Comment on above: Performed By: #### L IPID, CMP, T7, FT3, TSH #### [facility] [address] [place] [address] Dr. Isi Britton Potassium [Moles/Vol] 4.3 mmol/L Normal 3.5-5.1 [facility] Comment on above: Performed By: #### L IPID, CMP, T7, FT3, TSH #### [facility] [address] [place] [address] Dr. Isi Britton Protein [Mass/Vol] 7.2 g/dL Normal 6.4-8.2 [facility] Comment on above: Performed By: #### L IPID, CMP, T7, FT3, TSH #### [facility] [address] [place] [address] Dr. Isi Britton Sodium [Moles/Vol] 142 mmol/L Normal 136-145 [facility] Comment on above: Performed By: #### L IPID, CMP, T7, FT3, TSH #### [facility] [address] [place] [address] Dr. Isi Britton Urea nitrogen [Mass/Vol] 24.0 mg/dL Critically high 7.0-18.0 [facility] Comment on above: Performed By: #### L IPID, CMP, T7, FT3, TSH #### [facility] [address] [place] [address] Dr. Isi Britton Urea nitrogen/Creatinine [Mass ratio] 17.6 mg/mg Normal [facility] Comment on above: Performed By: #### L IPID, CMP, T7, FT3, TSH #### [facility] [address] [place] [address] Dr. Isi Britton TSHon 11-12-2022 TSH 1.802 uIU/mL Normal 0.358-3.740 [facility] Comment on above: Performed By: #### L IPID, CMP, T7, FT3, TSH #### [facility] [address] [place] [address] [address] Isi Britton Covid-19 PCR (CVDTB)on 09-11 SARS-CoV-2 (COVID-19) RNA ERICK+probe Ql (Unsp spec) Not detected Normal NOT DETECTED [facility] Comment on above: Result Comment: This test is not yet approved or cleared by the [place] FDA. When there are no FDA-approved or cleared tests available, and other criteria are met, FDA can make tests available under an emergency access mechanism called an Emergency Use Authorization (EUA). The EUA for this test is supported by the [place]ible [place] of Health and Human Service's (HHS's) declaration [...] consistent with SARS-CoV-2. Performed By: #### [facility] ####[facility] [id number] [address]. Isi Britton ECHOCARDIO M/2D COMPLETEon 1 09-09-2021 ECHOCARDIO M/2D COMPLETE Patient: SON HUBBARD Exam Date: 07/10/2022 : 1945 Gender:F Ordering : DR CLINTON DORAN M.D. Admission #: [id number] Family : DR PAT NEWELL . Order #: [id number] CLICK HERE TO VIEW EXAM ECHOCARDIOGRAM REPORT [...] Johnson M.D. on 07/10/2022 at 15:37 Normal [facility] Covid-19 PCR (CVDTB)on 03-12 SARS-CoV-2 (COVID-19) RNA ERICK+probe Ql (Unsp spec) Not detected Normal NOT DETECTED [facility] Comment on above: Result Comment: This test is not yet approved or cleared by the [place] FDA. When there are no FDA-approved or cleared tests available, and other criteria are met, FDA can make tests available under an emergency access mechanism called an Emergency Use Authorization (EUA). The EUA for this test is supported by the [place] of Health and Human Service's (HHS's) declaration [...] consistent with SARS-CoV-2. Performed By: #### C VDTB #### [facility] [address] [place] [address] Dr. Isi Britton C REACTIVE PROTEINon 021 CRP [Mass/Vol] 5.1 mg/L Normal 0.0-7.0 [facility] Comment on above: Performed By: #### 6 1405 #### [address] CERVICAL SPINE 2 OR 3 VWSon 03-12-2021 CERVICAL SPINE 2 OR 3 VWS [facility] Department of Radiology [address] [place] [id number] ======== Patient Name: SON HUBBARD : 1945 Sex: F Age: Race: White Pt. Location: [facility] Patient Status: D Ordered Date: 03/12/2021 4:00:00 PM Completed Date: 03/12/2021 04:25 PM Requesting Provider: REZA HARVEY Attending Provider: REZA HARVEY Report Copy To: Signs & Symptoms: M54.2 Cervicalgia I10 History: Edwards Comments: Exam: CERVICAL SPINE 2 OR 3 VWS ======== CERVICAL SPINE 2 OR 3 VWS 03/12/2021 [...] curvature. Electronically signed: Rosendo Salvador. Transcribed by: [email or web address], User Resident: Electronically Signed by: ROSENDO SALVADOR @ 03/13/2021 08:58 AM Normal [facility] LUMBAR SPINE 2 OR 3 [facility] LUMBAR SPINE 2 OR 3 [facility] Department of Radiology [address] [place] [phone] ======== Patient Name: SON HUBBARD : 1945 Sex: F Age: Race: White Pt. Location: [facility] Patient Status: D Ordered Date: 03/12/2021 4:00:00 PM Completed Date: 03/12/2021 04:25 PM Requesting Provider: REZA HARVEY Attending Provider: REZA HARVEY Report Copy To: Signs & Symptoms: M54.5 Low back pain I10 History: Radhika Comments: Exam: LUMBAR SPINE 2 OR 3 [facility] ======== LUMBAR SPINE 2 OR 3 [facility] 03/12/2021 4:25 PM CLINICAL INDICATIONS: M54.5 [...] levels. Electronically signed: Rosendo Salvador. Transcribed by: [email or web address], User Resident: Electronically Signed by: ROSENDO SALVADOR @ 03/13/2021 10:49 AM Normal [facility] S-I JOINTS MIN 4 [facility] 03-12 S-I JOINTS MIN 4 [facility] Department of Radiology [address] [place] [phone] ======== Patient Name: SON HUBBARD : 1945 Sex: F Age: Race: White Pt. Location: [facility] Patient Status: D Ordered Date: 03/12/2021 4:00:00 PM Completed Date: 03/12/2021 04:25 PM Requesting Provider: REZA HARVEY Attending Provider: REZA HARVEY Report Copy To: Signs & Symptoms: M54.5 Low back pain I10 History: Edwards Comments: Exam: S-I JOINTS MIN 4 [facility] ======== S-I JOINTS MIN 4 VWS 03/12/2021 4:25 [...] report. Electronically signed: Brisa [place]. Transcribed by: [email or web address], User Resident: HARRISON HUNTER Electronically Signed by: BRISA JACKSON @ 03/13/2021 10:46 AM I personally read this/these film(s) with this resident Normal [facility] SEDIMENTATION RATEon 021 SED RATE 37 mm/hr High 0-20 [facility] Comment on above: Performed By: #### 5 6506 #### [address] [address] [place] [address], [facility] Cardiovascular Lab Reporton 05-12-2020 Cardiovascular Lab Report [facility] Patient Name: Son Hubbard [facility] MR #: [id number] Physician: Clinton Koch of [facility] Medicine Service Date: 05/11/2020 Division of Birthdate: 1945 Cardiology Room #: [facility] Cardiovascular Services [facility] [address] [place] [address] Cardiovascular Laboratory Report INDICATION: The patient is a 75-year-old woman, who recently was evaluated in Cardiology Clinic because of a class 3 heart failure symptoms. She was evaluated by initially an echocardiography, then a transesophageal echocardiogram that showed [id number] mitral regurgitation and mild aortic valve regurgitation. [...] signed informed consent. She was brought to labour market economist in a fasting state. Modified Dom's test was favorable on the left. Access in the left radial artery was obtained using micropuncture technique. A 6-Panamanian x 11 cm Hydrophilic sheath was advanced. [...] coronary artery. This was exchanged to a 6-Panamanian AR2 guiding catheter followed by a 6-Panamanian AL1 guiding catheter, which was able to [...] atmospheres and post dilated using NC Quantum [place] 3.0 x 15 mm noncompliant balloon inflated [...] Doran M.D. Date Trans: 05/12/2020 06:46 Tommy/cale [id number] cc: Pat Newell M.D. [address], [facility] [address] Normal [facility] BNP (B-TYPE NATRIURETIC PEPT EFE)on 04-05-2020 Natriuretic peptide B (Bld) [Mass/Vol] 26 pg/mL Normal 0-100 [facility] Comment on above: Order Comment: No: D o not add to previous draw Result Comment: Give n the appropriate clinical setting a BNP result of >100 pg/mL indicates congestive heart failure. Performed By: #### 8 [id number] #### [place] [address], [facility] CBC COMPLETE BLOOD COUNTon 04-05-2020 Erythrocyte distribution width (RBC) [Ratio] 13.1 % Normal 11.5-15.0 [facility] Comment on above: Order Comment: No: D o not add to previous draw Performed By: #### 5 0608 #### [facility] [address] [place] [address], [facility] Hematocrit (Bld) [Volume fraction] 42.1 % Normal 36.0-45.0 [facility] Comment on above: Order Comment: No: D o not add to previous draw Performed By: #### 5 0608 #### [facility] [address] Hemoglobin (Bld) [Mass/Vol] 14.3 g/dL Normal 12.0-15.0 [facility] Comment on above: Order Comment: No: D o not add to previous draw Performed By: #### 5 0608 #### [facility] [address] [place] [address], [facility] MCH (RBC) [Entitic mass] 31.0 pg Normal 27.0-33.0 [facility] Comment on above: Order Comment: No: D o not add to previous draw Performed By: #### 5 0608 #### [facility] [address] [place] [address], [facility] MCHC (RBC) [Mass/Vol] 34.0 g/dL Normal 32.0-35.0 [facility] Comment on above: Order Comment: No: D o not add to previous draw Performed By: #### 5 0608 #### [facility] [address] [place] [address], [facility] MCV (RBC) [Entitic vol] 91.3 fL Normal 82.0-98.0 [facility] Comment on above: Order Comment: No: D o not add to previous draw Performed By: #### 5 0608 #### [facility] [address] [place] [address], [facility] Nucleated RBC/100 WBC (Bld) [Ratio] 0 % Normal 0-0 [facility] Comment on above: Order Comment: No: D o not add to previous draw Performed By: #### 5 0608 #### [facility] [address] [place] [id number], [place] PLAT CNT 249 10*3/uL Normal 150-400 [facility] Comment on above: Order Comment: No: D o not add to previous draw Performed By: #### 5 0608 #### [facility] [address] [place] [address], [facility] RBC (Bld) [#/Vol] 4.61 10*6/uL Normal 3.80-5.00 [facility] Comment on above: Order Comment: No: D o not add to previous draw Performed By: #### 5 0608 #### [facility] [address] [place] [id number], [facility] WBC (Bld) [#/Vol] 6.32 10*3/uL Normal 4.00-10.60 [facility] Comment on above: Order Comment: No: D o not add to previous draw Performed By: #### 5 0608 #### [facility] [address] [place] [address], [facility] Erythrocyte distribution width (RBC) [Ratio] 13.0 % Normal 11.5-15.0 [facility] Comment on above: Order Comment: No: D o not add to previous draw Performed By: #### 5 0608 #### [facility] [address] [place] [id number], [facility] Hematocrit (Bld) [Volume fraction] 40.2 % Normal 36.0-45.0 [facility] Comment on above: Order Comment: No: D o not add to previous draw Performed By: #### 5 0608 #### [facility] [address] Hemoglobin (Bld) [Mass/Vol] 13.7 g/dL Normal 12.0-15.0 [facility] Comment on above: Order Comment: No: D o not add to previous draw Performed By: #### 5 0608 #### [facility] [address] [place] [id number], [facility] MCH (RBC) [Entitic mass] 31.4 pg Normal 27.0-33.0 [facility] Comment on above: Order Comment: No: D o not add to previous draw Performed By: #### 5 0608 #### [facility] [address] MCHC (RBC) [Mass/Vol] 34.1 g/dL Normal 32.0-35.0 [facility] Comment on above: Order Comment: No: D o not add to previous draw Performed By: #### 5 0608 #### [facility] [address] [facility] [place] [place] [address], [facility] MCV (RBC) [Entitic vol] 92.0 fL Normal 82.0-98.0 [facility] Comment on above: Order Comment: No: D o not add to previous draw Performed By: #### 5 0608 #### [facility] [address] [facility] [place] [address], [facility] Nucleated RBC/100 WBC (Bld) [Ratio] 0 % Normal 0-0 [facility] Comment on above: Order Comment: No: D o not add to previous draw Performed By: #### 5 0608 #### [facility] [address] [facility] [place] [address], [facility] PLAT CNT 209 10*3/uL Normal 150-400 [facility] Comment on above: Order Comment: No: D o not add to previous draw Performed By: #### 5 0608 #### [facility] [address] [facility] [place] [address], [place] RBC (Bld) [#/Vol] 4.37 10*6/uL Normal 3.80-5.00 [facility] Comment on above: Order Comment: No: D o not add to previous draw Performed By: #### 5 0608 #### [facility] [address] [place] [address], [facility] WBC (Bld) [#/Vol] 5.97 10*3/uL Normal 4.00-10.60 [facility] Comment on above: Order Comment: No: D o not add to previous draw Performed By: #### 5 0608 #### [facility] [address] TROPONIN-Ion 04-05-2020 Troponin I.cardiac [Mass/Vol] 0.07 ng/mL High 0.00-0.04 [facility] Comment on above: Order Comment: This order is a replacement of the rejected order with accession number [id number]. Result Comment: REFE RENCE RANGES: 0.00 - 0.04 ng/ml NORMAL 0.05 - 0.50 ng/ml INDETERMINATE > 0.50 ng/ml CONSISTENT WITH AN M.I. Performed By: #### 3 5200 #### [facility] [address] Cardiovascular Lab Reporton 04-04-2020 Cardiovascular Lab Report [facility] Patient Name: Son Hubbard [facility] S MR #: [id number] Department of Physician: Clinton Doran M.D. Division of Service Date: 04/04/2020 Cardiology Birthdate: 1945 Adult Cardiovascular Room #: [facility] [address] [place], [place] [address] Cardiovascular Laboratory Report INDICATION: Son Hubbard is a 75-year-old woman, who was recently evaluated in Cardiology Clinic after a recent admission to the [facility] with acute onset shortness of breath and finding on echocardiogram of possible severe mitral regurgitation. She continued to be symptomatic and was referred for further investigation of her recent onset symptoms by a transesophageal echocardiography that showed evidence of jfzf-qd-[id number] mitral regurgitation. She was then referred for [...] informed consent. She was brought to the labour market economist in a fasting state. The right neck area was prepped and draped in the usual fashion. Using micropuncture technique and ultrasound guidance, the right internal jugular vein was accessed. A 6-Panamanian x 11 cm sheath was placed. A 6-Panamanian Mendez catheter was used for right catheterization with measurement of pressures and calculation of cardiac output using the estimated Elizabeth method. Mendez catheter was removed. Modified Dom's test was favorable on the right. Access in the right radial artery was obtained using micropuncture technique. A 6-Panamanian x 11 cm Hydrophilic sheath was advanced. Verapamil was given through the sheath and heparin was administered intravenously. Bilateral selective coronary angiography was then performed using 5-Panamanian JR5 and 5-Panamanian multipurpose catheters for engagement of the right coronary artery and a 5-Panamanian JL3.5 diagnostic catheter for engagement of the left coronary artery. Catheters were removed. Additional heparin was given as needed and therapeutic ACT confirmed during the rest of the procedure. A 6-Panamanian XB3.0 guiding catheter was advanced and used [...] atmospheres and post dilated using NC Quantum [place] 3.25 x 12 mm noncompliant balloon inflated [...] 2- (more content not included)... Normal [facility] *SARS-CoV-2 COVID-19on 03-31 SARS-CoV-2 (COVID-19) RNA ERICK+probe Ql (Unsp spec) Not detected Normal Not Detected [facility] Comment on above: Order Comment: The A ptima SARS-CoV-2 assay is a nucleic acid amplification test intended for the qualitative detection of RNA from SARS-CoV-2 isolated and purified from nasopharyngeal (SYSTEMS TEST ANALYST),oropharyngeal (OP), nasal swab, sputum, and bronchoalveolar lavage (BAL) specimens from patients with signs and symptoms of infection who are suspected of COVID-19. Results are for the identification of SARS-CoV-2 RNA. The SARS-CoV-2 RNA is generally detectable during the acute phase of infection. The Aptima SARS-CoV-2 Assay on the [place] [employer] [place] [employer] system is intended for use by laboratory personnel specifically instructed and trained in the operation of the [place] [employer] [place] [employer] system. The Aptima SARS-CoV-2 assay is [...] information. Performed By: #### 3 [id number] #### [facility] [address] CONSULTATIONon 03-02-2019 [place] [address] CONSULTATION PATIENT NAME: SON HUBBARD : 1945 MED REC NO: [id number] ROOM: [facility] ACCOUNT NO: [id number] ADMIT DATE: 02/24/2019 PROVIDER: Francis Holguin MD [...] and S2 are normal. No murmurs appreciated. ELECTRONIC INDUCTION HARDENER EXAMINATION: Pupils are equal and reactive. Eye [...] care of the patient. FRANCIS HOLGUIN MD SALMA/Rosana_KENYA_I Doc#: [id number] CC: Normal [facility] Homocysteineon 03-02-2019 Homocysteine 14.5 umol/L Normal 0.0-15.0 [facility] Comment on above: Performed By: #### P T #### [facility] [address] [place] [address] TSH w/out Reflexon 9 TSH Qn 3.890 uIU/mL Critically high 0.440-3.86 [facility] Comment on above: Performed By: #### P T #### [facility] [address] [place] [address] Vitamin B12 and Folateon Cobalamin (Vitamin B12) [Mass/Vol] 537 pg/mL Normal 232-1245 [facility] Comment on above: Performed By: #### P T #### [facility] [address] [place] [address] Folate 11.6 ng/mL Normal 7.3-26.1 [facility] Comment on above: Result Comment: As o f 16, the methodology has changed. Results from this methodology should not be compared with results from previous methodology. Performed By: #### P T #### [facility] [address] [place] [address] Urinalysis, reflex to cultur erik 02-28-2019 Bilirubin Ql (U) Negative Normal Negative [facility] Comment on above: Performed By: #### B MP #### [facility] [address] [place] [address] Clarity (U) Clear Normal Clear [facility] Comment on above: Performed By: #### B MP #### [facility] [address] [place] [address] Color (U) Yellow Normal Straw/Woodward [facility] Comment on above: Performed By: #### B MP #### [facility] [address] [place] [address] Glucose Ql (U) Negative Normal Negative [facility] Comment on above: Performed By: #### B MP #### [facility] [address] [place] [address] Hemoglobin Ql (U) Negative Normal Negative [facility] Comment on above: Performed By: #### B MP #### [facility] [address] [place] [address] Ketones Ql (U) Negative Normal Negative [facility] Comment on above: Performed By: #### B MP #### [facility] [address] [place] [address] Leukocyte esterase Test strip Ql (U) Negative Normal Negative [facility] Comment on above: Performed By: #### B MP #### [facility] [address] [place] [address] Nitrite Ql (U) Negative Normal Negative [facility] Comment on above: Performed By: #### B MP #### [facility] [address] [place] [address] pH (U) 7.0 [pH] Normal 5.0-9.0 [facility] Comment on above: Performed By: #### B MP #### [facility] [address] [place] [address] Protein Ql (U) Negative Normal Negative [facility] Comment on above: Performed By: #### B MP #### [facility] [address] [place] [address] Specific gravity (U) [Rel density] 1.007 Normal 1.005-1.03 [facility] Comment on above: Performed By: #### B MP #### [facility] [address] [place] [address] Urine Reflexed to Culture Not Indicated Normal [facility] Comment on above: Performed By: #### B MP #### [facility] [address] [place] [address] Urobilinogen Qn (U) 0.2 {Tyrel'U}/dL Normal < 2.0 [facility] Comment on above: Performed By: #### B MP #### [facility] [address] [place] [address] CBC With Platelet No Differe ntialon 02-25-2019 Erythrocyte distribution width (RBC) [Ratio] 13.5 % Normal 11.5-14.5 [facility] Comment on above: Performed By: #### B MP #### [facility] [address] [place] [address] Hematocrit (Bld) [Volume fraction] 33.3 % Low 37.0-47.0 [facility] Comment on above: Performed By: #### B MP #### [facility] [address] [place] [address] Hemoglobin (Bld) [Mass/Vol] 11.7 g/dL Low 12.0-16.0 [facility] Comment on above: Performed By: #### B MP #### [facility] [address] [place] [address] MCH (RBC) [Entitic mass] 33.0 pg Critically high 27.0-31.3 [facility] Comment on above: Performed By: #### B MP #### [facility] [address] [place] [address] MCHC (RBC) [Mass/Vol] 35.1 % Normal 33.0-37.0 [facility] Comment on above: Performed By: #### B MP #### [facility] [address] [place] [address] MCV (RBC) [Entitic vol] 94.1 fL Normal 82.0-100.0 [facility] Comment on above: Performed By: #### B MP #### [facility] [address] [place] [address] Platelets (Bld) [#/Vol] 180 10*3/uL Normal 130-400 [facility] Comment on above: Performed By: #### B MP #### [facility] [address] [place] [address] RBC (Bld) [#/Vol] 3.54 10*6/uL Low 4.20-5.40 [facility] Comment on above: Performed By: #### B MP #### [facility] [address] [place] [address] WBC (Bld) [#/Vol] 12.1 10*3/uL Critically high 4.8-10.8 [facility] Comment on above: Performed By: #### B MP #### [facility] [address] [place] [address] Basic Metabolic Panel Reflex Mgon 02-24-2019 Anion gap [Moles/Vol] 13 mmol/L Normal 9-15 [facility] Comment on above: Performed By: #### B MP #### [facility] [address] [place] [address] Calcium [Mass/Vol] 8.8 mg/dL Normal 8.5-9.9 [facility] Comment on above: Performed By: #### B MP #### [facility] [address] [place] [address] Chloride [Moles/Vol] 100 mmol/L Normal 95-107 [facility] Comment on above: Performed By: #### B MP #### [facility] [address] [place] [address] CO2 [Moles/Vol] 24 mmol/L Normal 20-31 [facility] Comment on above: Performed By: #### B MP #### [facility] [address] [place] [address] Creatinine [Mass/Vol] 0.96 mg/dL Critically high 0.50-0.90 [facility] Comment on above: Performed By: #### B MP #### [facility] [address] [place] [address] GFR/1.73 sq M predicted among blacks MDRD (S/P/Bld) [Vol rate/Area] mL/min/{1.73_m2} Normal >60 [facility] Comment on above: Result Comment: >60 mL/min/1.73m2 EGFR, calc. for ages 18 and older using the MDRD formula (not corrected for weight), is valid for stable renal function. Performed By: #### B MP #### [facility] [address] [place] [address] GFR/1.73 sq M.predicted MDRD (S/P/Bld) [Vol rate/Area] 57.0 mL/min/{1.73_m2} Low >60 [facility] Comment on above: Result Comment: >60 mL/min/1.73m2 EGFR, calc. for ages 18 and older using the MDRD formula (not corrected for weight), is valid for stable renal function. Performed By: #### B MP #### [facility] [address] [place] [address] Glucose [Mass/Vol] 146 mg/dL Critically high 70-99 M [facility] Comment on above: Performed By: #### B MP #### [facility] [address] [place] [address] Potassium reflex Mg 5.4 mEq/L Critically high 3.4-4.9 [facility] Comment on above: Performed By: #### B MP #### [facility] [address] [place] [address] Sodium [Moles/Vol] 137 mmol/L Normal 135-144 [facility] Comment on above: Performed By: #### B MP #### [facility] [address] [place] [address] Urea nitrogen [Mass/Vol] 18 mg/dL Normal 8-23 [facility] Comment on above: Performed By: #### B MP #### [facility] [address] [place] [address] CBC With Platelet and Differ entialon 02-24-2019 Basophils (Bld) [#/Vol] 0.0 10*3/uL Normal 0.0-0.2 [facility] Comment on above: Performed By: #### C BCWD #### [facility] [address] [place] [address] Basophils/100 WBC (Bld) 0.1 % Normal [facility] Comment on above: Performed By: #### C BCWD #### [facility] [address] [place] [address] Eosinophils (Bld) [#/Vol] 0.0 10*3/uL Normal 0.0-0.7 [facility] Comment on above: Performed By: #### C BCWD #### [facility] [address] [place] [address] Eosinophils/100 WBC (Bld) 0.0 % Normal [facility] Comment on above: Performed By: #### C BCWD #### [facility] [address] [place] [address] Erythrocyte distribution width (RBC) [Ratio] 13.4 % Normal 11.5-14.5 [facility] Comment on above: Performed By: #### C BCWD #### [facility] [address] [place] [address] Hematocrit (Bld) [Volume fraction] 34.6 % Low 37.0-47.0 [facility] Comment on above: Performed By: #### C BCWD #### [facility] [address] [place] [address] Hemoglobin (Bld) [Mass/Vol] 12.0 g/dL Normal 12.0-16.0 [facility] Comment on above: Performed By: #### C BCWD #### [facility] [address] [place] [address] Lymphocytes (Bld) [#/Vol] 0.9 10*3/uL Low 1.0-4.8 [facility] Comment on above: Performed By: #### C BCWD #### [facility] [address] [place] [address] Lymphocytes/100 WBC (Bld) 6.5 % Normal [facility] Comment on above: Performed By: #### C BCWD #### [facility] [address] [place] [address] MCH (RBC) [Entitic mass] 32.3 pg Critically high 27.0-31.3 [facility] Comment on above: Performed By: #### C BCWD #### [facility] [address] [place] [address] MCHC (RBC) [Mass/Vol] 34.7 % Normal 33.0-37.0 [facility] Comment on above: Performed By: #### C BCWD #### [facility] [address] [place] [address] MCV (RBC) [Entitic vol] 93.2 fL Normal 82.0-100.0 [facility] Comment on above: Performed By: #### C BCWD #### [facility] [address] [place] [address] Monocytes (Bld) [#/Vol] 1.4 10*3/uL Critically high 0.2-0.8 [facility] Comment on above: Performed By: #### C BCWD #### [facility] [address] [place] [address] Monocytes/100 WBC (Bld) 10.2 % Normal [facility] Comment on above: Performed By: #### C BCWD #### [facility] [address] [place] [address] Neutrophils (Bld) [#/Vol] 11.3 10*3/uL Critically high 1.4-6.5 [facility] Comment on above: Performed By: #### C BCWD #### [facility] [address] [place] [address] Neutrophils/100 WBC (Bld) 83.2 % Normal [facility] Comment on above: Performed By: #### C BCWD #### [facility] [address] [place] [address] Platelets (Bld) [#/Vol] 208 10*3/uL Normal 130-400 [facility] Comment on above: Performed By: #### C BCWD #### [facility] [address] [place] [address] RBC (Bld) [#/Vol] 3.71 10*6/uL Low 4.20-5.40 [facility] Comment on above: Performed By: #### C BCWD #### [facility] [address] [place] [address] WBC (Bld) [#/Vol] 13.7 10*3/uL Critically high 4.8-10.8 [facility] Comment on above: Performed By: #### C BCWD #### [facility] [address] [place] [address] Culture, Urineon 02-24-2019 Culture, Urine ORDERED BY: CHRISTIE REED SOURCE: Urine Clean Catch COLLECTED: 02/24/19 17:31 ANTIBIOTICS AT ELISEO.: RECEIVED : 02/24/19 17:31 Culture, Urine FINAL 02/26/19 08:22 No growth 24 hours Normal [facility] Comment on above: Performed By: #### B MP #### [facility] [address] [place] [address] POCT Glucoseon 02-24-2019 Glucose [Mass/Vol] 133 mg/dL Critically high 60-115 M [facility] Comment on above: Performed By: #### B MP #### [facility] [address] [place] [address] POC Performed on ACCU-CHEK Normal [facility] Comment on above: Performed By: #### B MP #### [facility] [address] [place] [address] Urinalysis, reflex to cultur erik 02-24-2019 Bilirubin Ql (U) Negative Normal Negative [facility] Comment on above: Performed By: #### B MP #### [facility] [address] [place] [address] Clarity (U) Clear Normal Clear [facility] Comment on above: Performed By: #### B MP #### [facility] [address] [place] [address] Color (U) Yellow Normal Straw/Woodward [facility] Comment on above: Performed By: #### B MP #### [facility] [address] [place] [address] Glucose Ql (U) Negative Normal Negative [facility] Comment on above: Performed By: #### B MP #### [facility] [address] [place] [address] Hemoglobin Ql (U) SMALL Abnormal Negative [facility] Comment on above: Performed By: #### B MP #### [facility] [address] [place] [address] Ketones Ql (U) Negative Normal Negative [facility] Comment on above: Performed By: #### B MP #### [facility] [address] [place] [address] Leukocyte esterase Test strip Ql (U) TRACE Abnormal Negative [facility] Comment on above: Performed By: #### B MP #### [facility] [address] [place] [address] Nitrite Ql (U) Negative Normal Negative [facility] Comment on above: Performed By: #### B MP #### [facility] [address] [place] [address] pH (U) 6.0 [pH] Normal 5.0-9.0 [facility] Comment on above: Performed By: #### B MP #### [facility] [address] [place] [address] Protein Ql (U) Negative Normal Negative [facility] Comment on above: Performed By: #### B MP #### [facility] [address] [place] [address] Specific gravity (U) [Rel density] 1.010 Normal 1.005-1.03 [facility] Comment on above: Performed By: #### B MP #### [facility] [address] [place] [address] Urine Reflexed to Culture YES Normal [facility] Comment on above: Performed By: #### B MP #### [facility] [address] [place] [address] Urobilinogen Qn (U) 0.2 {Tyrel'U}/dL Normal < 2.0 [facility] Comment on above: Performed By: #### B MP #### [facility] [address] [place] [address] Urine Microscopicon 02-25-20 19 Bacteria LM.HPF (Urine sed) [#/Area] Negative Normal [facility] Comment on above: Performed By: #### B MP #### [facility] [address] [place] [address] RBC (U) [#/Vol] 0-2 Normal 0-5 [facility] Comment on above: Performed By: #### B MP #### [facility] [address] [place] [address] Urine Epithelial Cells Auto 3-5 Normal 0-5 [facility] Comment on above: Performed By: #### B MP #### [facility] [address] [place] [address] Urine Hyaline Casts Auto 0-1 Normal 0-5 [facility] Comment on above: Performed By: #### B MP #### [facility] [address] [place] [address] Urine WBC Auto 6-10 Abnormal 0-5 [facility] Comment on above: Performed By: #### B MP #### [facility] [address] [place] [address] XR LUMBAR SPINE (2-3 VIEWS)o n 02-24-2019 [...] Visualized hips unremarkable. No other significant abnormality. - IMPRESSION: Interval postsurgical changes lower lumbar spine without complication. Interpreted by: Ramón Bonds MD Signed by: Ramón Bonds MD 02/24/19 Final result Normal [facility] Basic Metabolic Panel Reflex Mgon 02-23-2019 Anion gap [Moles/Vol] 14 mmol/L Normal 9-15 [facility] Comment on above: Performed By: #### B MPX #### [facility] [address] [place] [address] Calcium [Mass/Vol] 9.1 mg/dL Normal 8.5-9.9 [facility] Comment on above: Performed By: #### B MPX #### [facility] [address] [place] [address] Chloride [Moles/Vol] 106 mmol/L Normal 95-107 [facility] Comment on above: Performed By: #### B MPX #### [facility] [address] [place] [address] CO2 [Moles/Vol] 20 mmol/L Normal 20-31 [facility] Comment on above: Performed By: #### B MPX #### [facility] [address] [place] [address] Creatinine [Mass/Vol] 0.96 mg/dL Critically high 0.50-0.90 [facility] Comment on above: Performed By: #### B MPX #### [facility] [address] [place] [address] GFR/1.73 sq M predicted among blacks MDRD (S/P/Bld) [Vol rate/Area] mL/min/{1.73_m2} Normal >60 [facility] Comment on above: Result Comment: >60 mL/min/1.73m2 EGFR, calc. for ages 18 and older using the MDRD formula (not corrected for weight), is valid for stable renal function. Performed By: #### B MPX #### [facility] [address] [place] [address] GFR/1.73 sq M.predicted MDRD (S/P/Bld) [Vol rate/Area] 57.0 mL/min/{1.73_m2} Low >60 [facility] Comment on above: Result Comment: >60 mL/min/1.73m2 EGFR, calc. for ages 18 and older using the MDRD formula (not corrected for weight), is valid for stable renal function. Performed By: #### B MPX #### [facility] [address] [place] [address] Glucose [Mass/Vol] 139 mg/dL Critically high 70-99 [facility] Comment on above: Performed By: #### B MPX #### [facility] [address] [place] [address] Potassium reflex Mg 4.6 mEq/L Normal 3.4-4.9 [facility] Comment on above: Performed By: #### B MPX #### [facility] [address] [place] [address] Sodium [Moles/Vol] 140 mmol/L Normal 135-144 [facility] Comment on above: Performed By: #### B MPX #### [facility] [address] [place] [address] Urea nitrogen [Mass/Vol] 20 mg/dL Normal 8-23 [facility] Comment on above: Performed By: #### B MPX #### [facility] [address] [place] [address] CBC With Platelet No Differe ntialon 02-23-2019 Erythrocyte distribution width (RBC) [Ratio] 13.4 % Normal 11.5-14.5 [facility] Comment on above: Performed By: #### C BCND #### [facility] [address] [place] [address] Hematocrit (Bld) [Volume fraction] 38.8 % Normal 37.0-47.0 [facility] Comment on above: Performed By: #### C BCND #### [facility] [address] [place] [address] Hemoglobin (Bld) [Mass/Vol] 13.6 g/dL Normal 12.0-16.0 [facility] Comment on above: Performed By: #### C BCND #### [facility] [address] [place] [address] MCH (RBC) [Entitic mass] 32.2 pg Critically high 27.0-31.3 [facility] Comment on above: Performed By: #### C BCND #### [facility] [address] [place] [address] MCHC (RBC) [Mass/Vol] 35.1 % Normal 33.0-37.0 [facility] Comment on above: Performed By: #### C BCND #### [facility] [address] [place] [address] MCV (RBC) [Entitic vol] 91.6 fL Normal 82.0-100.0 [facility] Comment on above: Performed By: #### C BCND #### [facility] [address] [place] [address] Platelets (Bld) [#/Vol] 212 10*3/uL Normal 130-400 [facility] Comment on above: Performed By: #### C BCND #### [facility] [address] [place] [address] RBC (Bld) [#/Vol] 4.24 10*6/uL Normal 4.20-5.40 [facility] Comment on above: Performed By: #### C BCND #### [facility] [address] [facility] [place] [address] WBC (Bld) [#/Vol] 8.3 10*3/uL Normal 4.8-10.8 [facility] Comment on above: Performed By: #### C BCND #### [facility] [address] [facility] [place] [address] FLUORO FOR SURGICAL PROCEDUR ESon 02-23-2019 FLUORO [...] Nona Yates MD 02/23/19 Final result Normal [facility] Surgical Specimenon 02-24-20 19 Surgical Specimen [facility] [address] [place] [address] [id number] FINAL SURGICAL PATHOLOGY REPORT Patient Name: SON HUBBARD Accession No: [id number] Age Sex: 1945 Location: DIS [id number] Account No: [id number] Collected: 02/23/2019 Med Rec No: [id number] Received: 02/24/2019 Attend Phys: FAN RAMIREZ Completed: [...] 3.5 x 3.0 x 0.5 cm. Sections environmental marketing representative are submitted in three cassettes labeled A1 through A3 after a brief decalcification. JADE/TAYLOR CPT: 07700 X1 80454 X1 CHIDI LUNA M.D. 02/26/2019 Electronically signed out by Page 1 of 1 [facility] Comment on above: Performed By: #### B MP #### [facility] [address] [place] [address] Basic Metabolic Panelon 02-08 Anion gap [Moles/Vol] 13 mmol/L Normal 9-15 [facility] Comment on above: Performed By: #### B MP #### [facility] [address] [place] [address] Calcium [Mass/Vol] 9.7 mg/dL Normal 8.5-9.9 [facility] Comment on above: Performed By: #### B MP #### [facility] [address] [place] [address] Chloride [Moles/Vol] 105 mmol/L Normal 95-107 [facility] Comment on above: Performed By: #### B MP #### [facility] [address] [place] [address] CO2 [Moles/Vol] 24 mmol/L Normal 20-31 [facility] Comment on above: Performed By: #### B MP #### [facility] [address] [place] [address] Creatinine [Mass/Vol] 1.00 mg/dL Critically high 0.50-0.90 [facility] Comment on above: Performed By: #### B MP #### [facility] [address] [place] [address] GFR/1.73 sq M predicted among blacks MDRD (S/P/Bld) [Vol rate/Area] mL/min/{1.73_m2} Normal >60 [facility] Comment on above: Result Comment: >60 mL/min/1.73m2 EGFR, calc. for ages 18 and older using the MDRD formula (not corrected for weight), is valid for stable renal function. Performed By: #### B MP #### [facility] [address] [place] [address] GFR/1.73 sq M.predicted MDRD (S/P/Bld) [Vol rate/Area] 54.3 mL/min/{1.73_m2} Low >60 [facility] Comment on above: Result Comment: >60 mL/min/1.73m2 EGFR, calc. for ages 18 and older using the MDRD formula (not corrected for weight), is valid for stable renal function. Performed By: #### B MP #### [facility] [address] [place] [address] Glucose [Mass/Vol] 93 mg/dL Normal 70-99 [facility] Comment on above: Performed By: #### B MP #### [facility] [address] [place] [address] Potassium [Moles/Vol] 4.1 mmol/L Normal 3.4-4.9 [facility] Comment on above: Performed By: #### B MP #### [facility] [address] [place] [address] Sodium [Moles/Vol] 142 mmol/L Normal 135-144 [facility] Comment on above: Performed By: #### B MP #### [facility] [address] [place] [address] Urea nitrogen [Mass/Vol] 20 mg/dL Normal 8-23 [facility] Comment on above: Performed By: #### B MP #### [facility] [address] [place] [address] CBC With Platelet No Differe ntialon 02-22-2019 Erythrocyte distribution width (RBC) [Ratio] 13.2 % Normal 11.5-14.5 [facility] Comment on above: Performed By: #### C BCND #### [facility] [address] [place] [address] Hematocrit (Bld) [Volume fraction] 39.9 % Normal 37.0-47.0 [facility] Comment on above: Performed By: #### C BCND #### [facility] [address] [place] [address] Hemoglobin (Bld) [Mass/Vol] 14.1 g/dL Normal 12.0-16.0 [facility] Comment on above: Performed By: #### C BCND #### [facility] [address] [place] [address] MCH (RBC) [Entitic mass] 32.5 pg Critically high 27.0-31.3 [facility] Comment on above: Performed By: #### C BCND #### [facility] [address] [place] [address] MCHC (RBC) [Mass/Vol] 35.3 % Normal 33.0-37.0 [facility] Comment on above: Performed By: #### C BCND #### [facility] [address] [place] [address] MCV (RBC) [Entitic vol] 92.2 fL Normal 82.0-100.0 [facility] Comment on above: Performed By: #### C BCND #### [facility] [address] [place] [address] Platelets (Bld) [#/Vol] 206 10*3/uL Normal 130-400 [facility] Comment on above: Performed By: #### C BCND #### [facility] [address] [place] [address] RBC (Bld) [#/Vol] 4.33 10*6/uL Normal 4.20-5.40 [facility] Comment on above: Performed By: #### C BCND #### [facility] [address] [place] [address] WBC (Bld) [#/Vol] 5.9 10*3/uL Normal 4.8-10.8 [facility] Comment on above: Performed By: #### C BCND #### [facility] [address] [place] [address] Partial Thromboplastin Timeo n 02-22-2019 aPTT Coag (Bld) [Time] 36.9 s Critically high 24.4-36.8 [facility] Comment on above: Result Comment: Effe ctive 02/18/2019: Please note methodology and/or reference ranges have changed. Performed By: #### P TT #### [facility] [address] [place] [address] Prothrombin Timeon 9 INR Coag (PPP) [Relative time] 0.9 {INR} Normal [facility] Comment on above: Result Comment: Warf esther Therapy INR Therapeutic: 2.0-3.0 With Mechanical Valve: >2.5 Low-intensity Therapeutic Range: 1.5-2.0 Mod-intensity Therapeutic Range: 2.0-3.0 High-intensity Therapeutic Range: 2.5-3.5 HIgh-intensity Therapeutic Range: 3.0-4.0 Common Critical/Alarm Value: 5.0 Common Upper Limit Reported: 10.0 Effective 02/18/2019: Please note methodology and/or reference ranges have changed. Performed By: #### P T #### [facility] [address] [place] [address] PT Coag (PPP) [Time] 12.6 s Normal 12.3-14.9 [facility] Comment on above: Result Comment: Effe ctive 02/18/19 Please note methodology and/or reference ranges have changed. Performed By: #### P T #### [facility] [address] [place] [address] Type and Screen Capture 3 sc rn cellon 02-22-2019 Type and Screen Capture 3 scrn cell PATIENT: INEZ Wilson LOC: JOSÉ MIGUELWolf BILL# : [id number] : 1945 SEX: F ORDERED BY: RISSA Hale ORDERED : 02/22/2019 07:32 COLLECTED: 02/22/2019 09:40 ORDER : [id number] RECEIVED : 02/22/2019 09:40 Confirmation type needs to be drawn. TEST NAME RESULT UNITS RANGES ABN FL ST ABORH Capture O NEG F Antibody 3 Cell Scrn Captu NEG F Normal [facility] Comment on above: Performed By: #### T S3C #### [facility] [address] [place] [address] XR SPINE ENTIRE (2-3 VIEWS)o n 02-22-2019 [...] Hope Rapp MD 02/23/19 Final result Normal [facility] No Panel Information [facility] Encounters Encounter Date Encounter Type Care Provider Facility Start: 10-17-2023 Telephone encounter Genoveva Mario [facility] Start: 10-14-2023 End: 10-14-2023 Emergency department patient visit PAT NEWELL Facility:[facility] Start: 09-16-2023 Orders Only Shravan rodríguez MD Work Phone: Cardiology Comment on above: Hypertension, unspec ified type (Primary Dx); Coronary artery disease involving muscogee coronary artery of muscogee heart, unspecified whether angina present; Hyperlipidemia, unspecified hyperlipidemia type Start: 09-03-2023 End: 09-03-2023 ambulatory [facility] Start: 08-06-2023 End: 08-07-2023 ambulatory [facility] Start: 07-08-2023 End: 07-09-2023 ambulatory [facility] Start: 06-11-2023 End: 06-11-2023 ambulatory Referral Self Facility:[facility] Start: 06-11-2023 End: 06-11-2023 ambulatory MD Pat Newell Work Phone: [facility] Work Phone: Start: 06-11-2023 End: 06-11-2023 Patient encounter procedure MD Pat Newell Work Phone: [facility] Work Phone: Start: 03-28-2023 End: 03-28-2023 ambulatory [facility] Start: 11-12-2022 End: 11-13-2022 ambulatory MADELYN DICKSON Facility: Start: 10-18-2022 End: 10-18-2022 ambulatory PAT NEWELL Facility:[facility] Start: 10-10-2022 End: 10-10-2022 Patient encounter [...] 06-10-2022 ambulatory MD Pat Newell Work Phone: [facility] Work Phone: Start: 06-10-2022 End: 06-10-2022 Patient encounter procedure MD Pat Newell Work Phone: [facility] Start: 05-02-2022 End: 05-02-2022 Patient encounter procedure Mylene Almeida MD Work Phone: Ophthalmology Comment on above: S/P cataract extract ion and insertion of intraocular lens, left (Primary Dx) Start: 05-01-2022 End: 05-01-2022 Patient encounter procedure Naila Harrison OD Work Phone: Ophthalmology Comment on above: Superficial punctate keratitis of left eye (Primary Dx); Pseudophakia Start: 04-24-2022 End: 04-24-2022 Patient encounter procedure [...] cataract of both eyes (Primary Dx) Start: 01-11-2022 Telephone encounter Mylene henderson MD Work Phone: Ophthalmology Comment on above: Appointment Start: 05-11-2020 End: 05-12-2020 ambulatory [facility] Facility:[facility] Start: 04-04-2020 End: 04-05-2020 ambulatory [facility] Facility:[facility] Start: 02-24-2019 End: 03-05-2019 Evaluation and management of inpatient [facility] Start: 02-23-2019 End: 02-24-2019 Evaluation and management of inpatient [facility] Start: 02-23-2019 End: 02-26-2019 Patient encounter procedure [facility] Start: 02-22-2019 End: 02-24-2019 Patient encounter procedure [facility] Start: 02-22-2019 End: 02-27-2019 Patient encounter procedure [facility] Procedures Date Procedure Procedure Detail [...] ASHLEY Start: 02-28-2019 INCENTIVE SPIROMETRY RT FAN SAHLEY Start: 02-28-2019 INCENTIVE SPIROMETRY RT FAN ASHLEY [...] INCENTIVE SPIROMETRY RT FAN ASHLEY Start: 02-25-2019 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 AND TREAT FAN Y OO Start: [...] FAN ASHLEY Start: 02-24-2019 INCENTIVE SPIROMETRY RT FNA ASHLEY Start: 02-24-2019 INCENTIVE SPIROMETRY RT FAN [...] Treatment Date Care Activity Detail Author Start: 10-12-2026 Diabetes Screening Diabetes Screenin g [facility] Start: 06-20-2024 Pneumococcal Vaccine : 65+ (2 of 2 - PCV) Pneumococcal Vaccine: 65+ (2 of 2 - PCV) [facility] Start: 08-11-2023 Advance Directive Discussion Advance Directive Discussion [facility] Start: 08-11-2023 Depression Assessment Depression Ass essment [facility] Start: 04-11-2023 Covid-19 Vaccine ( season) Covid-19 Vaccine ( season) [facility] Start: 04-11-2023 Influenza vaccination Influenza Vacc ine (#1) [facility] Start: 03-07-2023 End: 08-29-2023 IOL BIOMETRY W/ IOL CALC OU (BOTH EYES) IOL BIOMETRY W/ IOL CALC OU (BOTH EYES) OPHT Imaging Routine Combined forms of age-related cataract of both eyes Expected: 03/07/2023, Expires: 08/29/2023 [facility] Work Phone: Comment on above: Expected: 03/07/2023 , Expires: 08/29/2023 Start: 08-11-2022 ADVANCE DIRECTIVE DISCUSSION ADVANCE DIRECTIVE DISCUSSION [facility] Start: 07-09-2022 COVID-19 VACCINE (4 - Booster for Pfizer series) COVID-19 VACCINE (4 - Booster for Pfizer series) [facility] Start: 05-03-2022 COVID-19 VACCINE (4 - Booster for Pfizer series) COVID-19 VACCINE (4 - Booster for Pfizer series) [facility] Start: 04-11-2022 Influenza vaccination C [facility] Start: 02-24-2022 Diabetes Screening Diabetes Screenin g [facility] Start: 08-11-2021 ADVANCE DIRECTIVE DISCUSSION ADVANCE DIRECTIVE DISCUSSION [facility] Start: 03-01-2021 COVID-19 VACCINE (3 - Booster for Pfizer series) COVID-19 VACCINE (3 - Booster for Pfizer series) [facility] Start: 06-20-2019 DIABETES SCREEN DIABETES SCREEN [facility] Start: 05-28-2018 Pneumococcal Vaccine : 65+ (2 of 2 - PCV) Pneumococcal Vaccine: 65+ (2 of 2 - PCV) [facility] Start: 06-14-2017 Adult depression screening assessment DEPRESSION SCREENING [facility] Start: 05-30-2013 PNEUMOCOCCAL: 65+ (2 - PCV) PNEUMOCOCCAL: 65+ (2 - PCV) [facility] Start: 2011 BONE DENSITY BONE DENSITY [facility] Start: 2011 Screening for osteoporosis Bone Density Screening [facility] Start: 2006 RSV Vaccine (1 - 1-d ose 60+ series) RSV Vaccine (1 - 1-dose 60+ series) [facility] Start: 01-22-1996 SHINGRIX VACCINE (1 of 2) SHINGRIX VACCINE (1 of 2) [facility] Start: 1991 COLOGUARD (FIT-DNA) COLOGUARD (FIT-D NA) [facility] Start: 1991 Colonoscopy COLONOSCOPY [facility] Start: 1991 COLORECTAL CANCER SCREENING COLORECTAL CANCER SCREENING [facility] Start: [address] COLONOGRAPHY [facility] Start: 1991 FECAL OCCULT BLOOD FECAL OCCULT BLOO D [facility] Start: 1991 LIPID SCREEN LIPID SCREEN [facility] Start: 1991 SIGMOIDOSCOPY SIGMOIDOSCOPY [facility] Start: 1965 Urine microalbumin profile [facility] Start: 01-22-1964 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 KALA DISEASE VISIT ANNUAL PCP TEAM CHRONIC DISEASE VISIT [facility] Start: 01-22-1964 BP CONTROLLED (<130/80) BP CONTROLLE D (<130/80) [facility] Start: 01-22-1964 Hepatitis B surface antibody level LDL CHOLESTEROL [facility] Start: 01-22-1964 HEPATITIS C SCREENING HEPATITIS C [facility] Start: 01-22-1964 Hepatitis C screening Hepatitis C [facility] Start: 1958 Adult depression screening assessment DEPRESSION SCREENING [facility] Start: 1951 COVID-19 VACCINE (#1) COVID-19 VACCI NE (#1) [facility] CORNEAL TOPOGRAPHY PENTACAM OU (BOTH EYES) CORNEAL TOPOGRAPHY PENTACAM OU (BOTH EYES) OPHT Imaging Routine Combined forms of age-related cataract of both eyes 04/24/2022 12:46 PM EDT [facility] Work Phone: End: 09-16-2024 ECG COMPLETE ECG COMPLETE ECG Routine Hypertension, unspecified type Coronary artery disease involving muscogee coronary artery of muscogee heart, unspecified whether angina present Hyperlipidemia, unspecified hyperlipidemia type 1 Occurrences starting 09/16/2023 until 09/16/2024 [facility] Work Phone: Comment on above: 1 Occurrences starti ng 09/16/2023 until 09/16/2024 [facility] Immunizations Immunization Date Immunization Notes Care Provider Desi aleman 08-27-2022 influenza virus vacc ine, unspecified formulation Shravan Buchanan MD Work Phone: [facility] 05-30-2012 influenza virus vacc ine, unspecified formulation Mylene Wayne MD Work Phone: [facility] 05-30-2012 pneumococcal polysaccharide vaccine, 23 valent Mylene Wayne MD Work Phone: [facility] Payers Date Payer Category Payer Self-pay [id number] 2019 Private Health Insurance [id number] 2019 Private Health Insurance [employer] [place] [employer] MEDICARE SUPPLEMENT [id number] 2019-Present [phone] [address] [place] [address] Indemnity [id number] 2019 Private Health Insurance DAJU[employer] DUNN MEDICARE SUPPLEMENT [id number] 2019-Present [phone] [place] [address] Indemnity [id number] 2016 Medicare [id number] 2016 Private Health Insurance [id number] 2011 Medicare MEDICARE MEDICAR E A AND B [id number] 2011-Present [phone] [address] [address] [place] [address] Medicare [id number] 2011 Medicare MEDICARE MEDICAR E A AND B [id number] 2011-Present [phone] [place] [address] Medicare [id number] 1959 Medicare [id number] 1959 Private Health Insurance [id number] 1945 Unknown [id number] .[id number] 1945 Unknown [id number] .182 1945 Unknown [id number] .182 1945 Unknown [id number] .182 1945 Unknown [id number] .182 1945 Unknown [id number] [id number] .182 1945 Unknown [id number] [id number] .647 1945 Unknown [id number] [id number] .647 1945 Unknown [id number] [id number] .593 1945 Unknown [id number] [id number] .593 1945 Unknown [id number] 2.16.840.1.487915.3.579.2 .593 1945 Unknown [id number] 2.16.840.1.118231.3.579.2 .593 1945 Unknown [id number] [id number] .593 Unknown [id number] .531 Social History Date Type Detail Facility Start: 04-28-2012 End: 04-24-2022 Tobacco smoking status NHIS Ex-smoker [facility] End: 04-28-1990 History of tobacco use Current smoker [facility] End: 04-28-1990 History of tobacco use Cigarette Smoker [facility] Start: 04-28-2012 End: 10-14-2023 Cigarettes smoked current (pack per day) - Reported 0.7 [facility] Start: 06-14-2016 End: 10-18-2022 Alcohol intake Current non-drinker of alcohol (finding) [facility] Start: 1945 Sex Assigned At Not on file C [facility] Start: 04-24-2022 Tobacco use and exposure Former smokeless tobacco user [facility] Work Phone: Start: 04-07-2022 End: 05-01-2022 Exposure to SARS-CoV-2 (event) Not sure [facility] Work Phone: Start: 1945 Sex Assigned At Female F [facility] Start: 10-18-2022 End: 10-14-2023 Tobacco use panel [facility] National Score (1-10 0), lower number is lower risk 70 [facility] Medical Equipment Procedure Code Equipment Code Equipment Original Text Equipment Identifier Dates Elan Bn Smpx P Radpq Fd Strl - [id number] Start: 05-27-2012 Sys Bncmnt Prep Kt Plg Brsh - [id number] Start: 05-27-2012 Comment on above: Description: CEMENT RESTRICTOR Stem Fem 50mm 12mm Elan Trthln - [id number] Start: 05-27-2012 Comment on above: Description: cemente d stem Aug Tib 10mm Trthln 3 Rt - [id number] Start: 05-27-2012 Comment on above: Description: AUGMENT Comp Fem 3 Rt Kn Total Stab - [id number] Start: 05-27-2012 Comment on above: Description: TS FEMU R Ins Tib 3 13mm K n X3 Cs Trthln - [id number] Start: 05-27-2012 Comment on above: Description: CS INSE RT Comp Pat 10mm 32mm Asym Trthln - [id number] Start: 05-27-2012 Comment on above: Description: PATELLA Baseplt Tib Trthln 3 Kn Total - [id number] Start: 05-27-2012 Comment on above: Description: UNIVERS AL BASEPLATE Lens Iol 0d +19. 5 Talat Uv Abs - [id number] Start: 05-01-2022 Comment on above: Description: -1.52 Lens Iol 0d +18 Talat Uv Abs - [id number] Start: 05-15-2022 Comment on above: Description: -0.34 Clinical Notes 01-16-2022 to 10-17-2023 Telephone Encounter - Genoveva Gibbons RN - 10/17/2023 7:04 PM ESTPatient Sebastian Almeida V, MD - 10/10/2022 12:24 PM Lenin Murphy OD - 10/10/2022 11:44 AM EST Note Date & Type Note Facility 10-17-2023 Miscellaneous Notes Spoke to pt's daughter, Mily Salazar she is the spokes person for p,. She states that pt needs [facility]. Her phone number is [phone] and email [email or web address] I have sent her the usual [facility] letter. Pt has an upcoming appt with Dr Liz on 01/22/23. I told her that more than likely this appt will be cancelled. documented in this encounter [facility] 10-14-2023 Note HNO ID: [id number] Author: MARK BRADSHAW MD Service: Cardiovascular Medicine Author Type: Fellow Type: Plan of Care Filed: 10/16/2023 11:53 Note Text: Attestation signed by Mark Bradshaw MD at 10/16/2023 11:53 AM [facility] STAFF PHYSICIAN NOTE OF PERSONAL INVOLVEMENT IN CARE I have reviewed the consult note obtained and documented by the resident/fellow and I personally participated in the murphy components. I have discussed the case and management of the patient's care. The following comments revise or confirm relevant murphy components of the note. IMPRESSION: Patient with moderately severe mitral regurgitation with heart failure preserved ejection fraction for adjustment of diuretic therapies and outpatient cardiology follow-up. SIGNATURE: Mark Bradshaw MD, MSc, [facility] It Sales Executive Date: 10/16/2023 Time: 11:52 AM [facility] CARDI[facility]ASCULAR [facility]ICINE CONSULT NOTE (Template ID [id number]) Son Hubbard [id number] PRIMARY SERVICE: Emergency Department CONSULTING SERVICE: Cardiovascular Medicine: General Consults DATE OF ADMISSION: 10/13/2023 DATE OF CONSULT: 10/14/2023 REASON FOR CONSULT Shortness of breath HISTORY OF PRESENT ILLNESS Son Hubbard is a 78 year old female with history of MR, mild-mod AI, CAD s/p BRITTNEY, HTN, GERD, anxiety, chronic low back pain, depression, HLD, vertigo, prior tobacco use, hx R TKA presenting due to shortness of breath. History of moderate-severe MR and in the last month or so has developed AF with associated palpitations and chest soreness causing her to present to local ED twice. She did not tolerate metoprolol or diltiazem reportedly, and so was placed on amiodarone. She has also been taken off of her lasix 20mg and hydralazine. Since then, she feels her dyspnea and fatigue have gotten a bit worse, where she has to walk much more slowly although she can walk somewhat indefinitely without stopping. In the ED, she is hemodynamically stable and afebrile saturating well on room air. BNP 719, D dimer negative, hsTNT flat at 20, Cr 1.36. PAST MEDICAL HISTORY PAST MEDICAL HISTORY Diagnosis Date CAD (coronary artery disease) 04/24/2022 Depression GERD (gastroesophageal reflux disease) HTN (hypertension) Hyperlipidemia Knee pain Pseudophakia of both eyes Seasonal allergic rhinitis PAST SURGICAL HISTORY Procedure Laterality Date ARTHRP KNE CONDYLEANDPLATU MEDIALANDLAT COMPARTMENTS 05/11/2012 Knee replacement, total right PAST SURGICAL HISTORY OF 08/11/2010 right knee partial replacement PAST SURGICAL HISTORY OF bilat foot surgery for plantar faciitis PAST SURGICAL HISTORY OF arthroscopy bilat knees POST-CATARACT LASER SURGERY Bilateral 10/10/2022 REMV CATARACT EXTRACAP,INSERT LENS Right 05/15/2022 REMV CATARACT EXTRACAP,INSERT LENS Left 05/01/2022 FAMILY HISTORY FAMILY HISTORY Problem Relation Age of Onset Coronary Artery Disease Father Cancer Mother SOCIAL HISTORY Social History Tobacco Use Smoking status: Former Packs/day: 0.70 Years: 4.00 Additional pack years: 0.00 Total pack years: 2.80 Types: Cigarettes Quit date: 04/28/1990 Years since quittin.4 Smokeless tobacco: Former Substance Use Topics Alcohol use: No Drug use: No HOME MEDICATIONS pantoprazole DR (PROTONIX) 40 mg tabletTake 40 mg by mouth once daily.Disp: Rfl: losartan (COZAAR) 100 mg tabletDisp: Rfl: atorvastatin (LIPITOR) 40 mg tabletTake 40 mg by mouth once daily.Disp: Rfl: krill oil 500 mg capDisp: Rfl: ubidecarenone Q-10 (COENZYME Q-10) 10 mg capDisp: Rfl: BIOTIN ORALDisp: Rfl: vit A/vit C/vit E/zinc/copper (PRESERVISION AREDS ORAL)Disp: Rfl: venlafaxine ER (EFFEXOR XR) 75 mg 24 hr capsuleTake 75 mg by mouth once daily.Disp: Rfl: TYRVAYA 0.03 mg/spray nasal sprayInstill 1 spray into both nostrils twice a dayDisp: Rfl: traMADol (ULTRAM) 50 mg tabletTake 50 mg by mouth three times daily as needed.Disp: Rfl: potassium chloride ER (K-DUR, KLOR-CON) 10 mEq tabletTake 10 mEq by mouth twice daily.Disp: Rfl: aspirin 81 mg capTake by mouth.Disp: Rfl: furosemide (LASIX) 20 mg tabletTake 20 mg by mouth. Disp: Rfl: hydrALAZINE (APRESOLINE) 25 mg tabletTake 25 mg by mouth.Disp: Rfl: VIT C/VIT E/LUTEIN/MIN/OMEGA-3 (OCUVITE ORAL)Take by mouth.Disp: Rfl: Multivitamin capsuleTake 1 capsule by mouth once daily. Disp: Rfl: INPATIENT MEDICATIONS Current Facility-Administered Medications Medication Dose Route Frequency sodium chloride 0.9 % (flush) 2-10 mL (BD POSIFLUSH) 2-10 mL INTRAVENOUS DIRECTED PRN And perflutren lipid microspheres 1.1 mg/mL 1.3 mL injection (DEFINITY) 1.3 mL INTRAVENOUS DIRECTED PRN ALLERGIES ALLERGIES Allergen Reactions Serina Inhibitors Rash Amlodipine Swelling Codeine Vomiting Di (more content not included)... [facility] 09-03-2023 Note [place] [facility] - [facility] Subjective Sonerum Hubbard is a 78 y.o. year old female patient being seen for follow up VIOLA. C/o extreme tiredness . Denies chest pain, SOB, and palpitations. Patient Active Problem List Diagnosis Mitral valve regurgitation Coronary artery disease involving muscogee coronary artery of muscogee heart without angina pectoris Primary hypertension Nonrheumatic [...] March 2020 she was admitted to the [facility] with worsening shortness of breath. The initial [...] June 2023 she was admitted to the [facility] with worsening shortness of breath and [...] Inhibitors Amlodipine Swell (more content not included)... [facility] 08-06-2023 Note Patient: Son arguelles Procedure Information Date/Time: 08/06/23 1030 Procedure: TRANSESOPHAGEAL ECHO (VIOLA) Location: [facility] V[facility] Clinical information reviewed: Allergies Meds Physical Exam Airway Mallampati: II TM distance: >3 FB Neck ROM: full Cardiovascular Dental Pulmonary Abdominal Anesthesia Plan ASA 2 other (Moderate sedation) Additional Equipment Requests [facility] 07-08-2023 Note Patient here for [facility] for SOB and chest pain. She was started on isosorbide. She is scheduled for outpatient stress test next week. She denies chest pain. SOB is improving. C/o LE edema which resolves by morning. C/o fatigue. Review of Systems Cardiovascular: Positive for leg swelling. All other systems reviewed and are negative. [facility] 07-08-2023 Note Cardiovascular Medic ine [facility] SUBJECTIVE Chief Complaint Patient presents with Fatigue Congestive Heart Failure Edema Shortness of Breath Son uHbbard is a 78 y.o. female here for hospital follow-up. HPI She started to have feeling of chest congestion around 06/21/2023 (this was similar to how she felt prior to her stent placement) and she presented to [facility]. She states she was having SOB [...] March 2020 she was admitted to the [facility] with worsening shortness of breath. The initial [...] Mitral valve regurgitation Coronary artery disease involving muscogee coronary artery of muscogee heart without angina pectoris Primary hypertension Nonrheumatic [...] Rfl: liothyronine ( (more content not included)... [facility] 03-28-2023 Note [place] [facility] - [facility] Subjective Son Hubbard is a 78 y.o. year old female patient being seen for Follow-up (6 MONTH FOLLOW UP ) Patient Active Problem List Diagnosis Mitral valve regurgitation Coronary artery disease involving muscogee coronary artery of muscogee heart without angina pectoris Primary hypertension Nonrheumatic [...] March 2020 she was admitted to the [facility] with worsening shortness of breath. The initial [...] tablet, TAKE 1 (more content not included)... [facility] 10-18-2022 Note HNO ID: [id number] Author: Steph Murphy, JOAQUIM Service: ? 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 10-10-2022 Instructions Mylene Almeida V, MD [...] so we recommend you come with a pizza driver. You will then be scheduled for a follow up in approximately one week. If you notice any of the following symptoms of retinal detachment, please call our office at : - Flashes of light - Increased number of floaters or large floaters - Curtains, veils, or spider web pattern over vision documented in this encounter [facility] 10-10-2022 History of Present illness Narrative [...] patient was offered a surgery/procedure at a [facility] facility. The surgeon/proceduralist and patient have [...] 2022 11:45 AM documented in this encounter [facility] 05-02-2022 History of Present illness Narrative [...] 2022 10:44 AM documented in this encounter [facility] 05-01-2022 History of Present illness Narrative [...] check cornea before applanating the patient Naila Harrison, OD I have confirmed and edited as [...] with all of its relevant components. Naila Harrison, JOAQUIM May 01, 2022 6:05 PM documented in this encounter [facility] 04-24-2022 History of Present illness Narrative Confirmed Aim: -1.50 OS, [place] OD CHRISTAL Calles April 24, 2022 12:46 PM documented in this encounter [facility] 03-07-2022 History of Present illness Narrative [...] and surgery - [facility] Cataract Presurgical Documentation Cataract: [...] patient was offered a surgery/procedure at a [facility] facility. The surgeon/proceduralist and patient have [...] 2022 12:59 PM documented in this encounter [facility] 01-16-2022 Miscellaneous Notes Patient has been rescheduled with Dr. Almeida for March 07 in [place] Patient called Appointment Center and was scheduled with Dr. Taylor. We are waiting to confirm from Dr. Wilson office if it is ok for patient to stay scheduled with or to call and reschedule with Dr. Almeida LVM for patient to schedule at Cataract Evaluation with Dr. Almeida in [place] per faxed referral from Dr. Wilson. First attempt 01/11/22. Referral scanned into chart. documented in this encounter [facility] Evaluation note Diagnosis Combined forms of age-related cataract of both eyes- Primary Other and combined forms of senile cataract Posterior vitreous detachment of right eye Vitreous degeneration [facility] Diagnosis Combined forms of age-related cataract of both eyes- Primary Other and combined forms of senile cataract [facility] Diagnosis Combined forms of age-related cataract of both eyes Other and combined forms of senile cataract Combined forms of age-related cataract of both eyes Other and combined forms of senile cataract Combined forms of age-related cataract of both eyes Other and combined forms of senile cataract [facility] Diagnosis Superficial punctate keratitis of left eye- Primary Pseudophakia Lens replaced by other means Combined forms of age-related cataract of both eyes Other and combined forms of senile cataract [facility] Diagnosis S/P cataract extraction and insertion of intraocular lens, left- Primary Combined forms of age-related cataract of both eyes Other and combined forms of senile cataract [facility] noteNo assessment information availableUniversity [facility] Work Phone: Evaluation note* Diagnosis PCO (posterior capsular opacification), bilateral- Primary After-cataract, unspecified Pseudophakia of both eyes Lens replaced by other means Vitreous degeneration, 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 Other retinal disorders [facility]* Diagnosis Hypertension, unspecified type- Primary Coronary artery disease involving muscogee coronary artery of muscogee heart, unspecified whether angina present Hyperlipidemia, unspecified hyperlipidemia type documented in this encounter [facility] for referral (narrative)* Outpatient Procedure (Routine) - Authorized Specialty Diagnoses / Procedures Referred By Contac t Referred To [facility] Diagnoses Hypertension, unspecified type Coronary artery disease involving muscogee coronary artery of muscogee heart, unspecified whether angina present Hyperlipidemia, unspecified hyperlipidemia type Procedures ECG COMPLETE ECG ROUTINE ECG W/LEAST 12 LDS W/I&R Shravan Buchanan MD [address] [place] [address] [facility] [address] [place] [address] Referral ID Status Reason Start Date Expiration Date Visits Requested Visits Authorized [id number] Authorized Auto-Generat ed Referral 09/16/2023 09/15/2024 [address] [facility] Summary Purpose Family History No [...] DATE CREATED AUTHOR AUTHOR'S ORGANIZ ATION 03/13/2021 [facility] DATE CREATED AUTHOR AUTHOR'S ORGANIZ ATION 11/18/2022 [facility] DATE CREATED AUTHOR AUTHOR'S ORGANIZ ATION 06/18/2023 [facility] DATE CREATED AUTHOR AUTHOR'S ORGANIZ ATION 09/23/2023 [facility] DATE CREATED AUTHOR AUTHOR'S ORGANIZ ATION 10/18/2023 [facility] Source Comments (unrecognize d section and content) In the event this informatio n is protected by the Federal Confidentiality of Alcohol and Drug Abuse Patient Records regulations: The Federal rules restrict any use of the information to criminally investigate or prosecute any alcohol or drug abuse patient.[facility] the event this information is protected by the Federal Confidentiality of Alcohol and Drug Abuse Patient Records regulations: The Federal rules restrict any use of the information to criminally investigate or prosecute any alcohol or drug abuse patient.[facility] the event this information is protected by the Federal Confidentiality of Alcohol and Drug Abuse Patient Records regulations: The Federal rules restrict any use of the information to criminally investigate or prosecute any alcohol or drug abuse patient.[facility] the event this information is protected by the Federal Confidentiality of Alcohol and Drug Abuse Patient Records regulations: The Federal rules restrict any use of the information to criminally investigate or prosecute any alcohol or drug abuse patient.[facility] the event this information is protected by the Federal Confidentiality of Alcohol and Drug Abuse Patient Records regulations: The Federal rules restrict any use of the information to criminally investigate or prosecute any alcohol or drug abuse patient.[facility] the event this information is protected by the Federal Confidentiality of Alcohol and Drug Abuse Patient Records regulations: The Federal rules restrict any use of the information to criminally investigate or prosecute any alcohol or drug abuse patient.[facility] the event this information is protected by the Federal Confidentiality of Alcohol and Drug Abuse Patient Records regulations: The Federal rules restrict any use of the information to criminally investigate or prosecute any alcohol or drug abuse patient.[facility] the event this information is protected by the Federal Confidentiality of Alcohol and Drug Abuse Patient Records regulations: The Federal rules restrict any use of the information to criminally investigate or prosecute any alcohol or drug abuse patient.[facility] the event this information is protected by the Federal Confidentiality of Alcohol and Drug Abuse Patient Records regulations: The Federal rules restrict any use of the information to criminally investigate or prosecute any alcohol or drug abuse patient.[facility] Reason for Visit (unrecogniz ed section and content) Reason Comments Appointment Reason Comments Cataract Evaluation Reason Comments Pre-Op Exam Reason Comments Post-op (Ophthalmology) Left Eye Eye gabriella n / patient had cataract surgery today Reason Comments Superficial punctate keratitis OS Reason Comments Posterior Capsule Opacification Evaluati on Left eye Care Teams (unrecognized sec tion and content) Team Status: Active Member Role Status Dates Pat Newell MD Primary Care Provider Active Team Status: Inactive Member Role Status Dates Pat Newell MD Primary Care Provider, Referring Pr ovider Active Referral Self Attending Provider Active Dairy Technician Relationship Specialty Start Date End Date Pat Newell MD PCP - General Family Practice 03/30/12 Dairy Technician Relationship Specialty Start Date End Date Pat Newell MD PCP - General Family Practice 03/30/12 Dairy Technician Relationship Specialty Start Date End Date Pat Newell MD PCP - General Family Practice 03/30/12 Dairy Technician Relationship Specialty Start Date End Date Pat Newell MD PCP - General Family Practice 03/30/12 Dairy Technician Relationship Specialty Start Date End Date Pat Newell MD PCP - General Family Medicine 03/30/12 Dairy Technician Relationship Specialty Start Date End Date Pat Newell MD PCP - General Family Medicine 03/30/12 Dairy Technician Relationship Specialty Start Date End Date Pat Newell MD PCP - General Family Medicine 03/30/12 Dairy Technician Relationship Specialty Start Date End Date Pat Newell MD PCP - General Family Medicine 03/30/12 Dairy Technician Relationship Specialty Start Date End Date Pat [...] BE BASED ON THE PRIMARY CLINICAL RECORDS. [employer] [facility]. provides no warranty or guarantee of the accuracy or completeness of information in this document.
--- NOTE | 2023-10-18 17:19 | ED.GENADUL1 ---
HPI - General Adult General Chief complaint: GI Bleed Stated complaint: BLOOD IN STOOL Time Seen by Provider: 10/18/23 16:57 Source: patient Mode of arrival: walk-in History of Present Illness HPI narrative: Patient just started on Eliquis in late September after she was diagnosed with new onset atrial fibrillation. No one talked with her about the effects of that medication or what she might experience while being on Eliquis, she told me. Today she had 2 BMs and both times saw little pink droplets of blood in the toilet or on the tissue. She had no rectal or abdominal pain. She did not strain to go. No clot passage. The amount of blood was tiny . She knows that she has a hemorrhoid - it has not been painful recently. No chest pain or shortness of breath Related Data Home Medications Medication Instructions Recorded Confirmed atorvastatin 40 mg tablet 40 mg PO DAILY 06/19/23 10/18/23 escitalopram oxalate 10 mg tablet 10 mg PO DAILY 06/19/23 10/18/23 (Lexapro) loperamide 2 mg capsule 2 mg PO DAILY 06/19/23 10/18/23 (Anti-Diarrheal (loperamide)) losartan 100 mg tablet (Cozaar) 100 mg PO DAILY 06/19/23 10/18/23 pantoprazole 40 mg tablet,delayed 40 mg PO DAILY 06/19/23 10/18/23 release vitamin A-vitamin C-vit E-min 1 tab PO DAILY 06/19/23 10/18/23 tablet (Vision tablet) hydralazine 25 mg tablet 25 mg PO BID 10/03/23 10/18/23 amiodarone 200 mg tablet (Pacerone) 200 mg PO BID 10/18/23 10/18/23 furosemide 20 mg tablet 20 mg PO DAILY 10/18/23 10/18/23 liothyronine 5 mcg tablet 5 mcg PO DAILY 10/18/23 10/18/23 Previous Rx's Medication Instructions Recorded isosorbide mononitrate 30 mg 30 mg PO Q24H #30 tabs 06/20/23 tablet,extended release 24 hr apixaban 5 mg tablet (Eliquis) 5 mg PO BID #60 tabs 09/30/23 Allergies Allergy/AdvReac Type Severity Reaction Status Date / Time SERINA Inhibitors Allergy Severe Verified 10/02/23 19:36 diltiazem Allergy Severe shortness Verified 10/02/23 19:36 of breath gabapentin [From Neurontin] Allergy Severe Verified 10/02/23 19:36 metoprolol Allergy Severe Verified 10/02/23 19:36 amlodipine AdvReac Severe swelling Verified 10/02/23 19:36 morphine AdvReac Severe Nausea Verified 10/02/23 19:36 [facility] Medical History (Updated 10/18/23 @ 17:25 by Eduin Agustin) Raynauds syndrome ?I73.00 - Raynaud's syndrome without gangrene (ICD-10) IBS (irritable bowel syndrome) ?K58.9 - Irritable bowel syndrome without diarrhea (ICD-10) Atrial fibrillation with rapid ventricular response ?I48.91 - Unspecified atrial fibrillation (ICD-10) Atrial fibrillation, new onset ?I48.91 - Unspecified atrial fibrillation (ICD-10) HTN (hypertension) ?I10 - Essential (primary) hypertension (ICD-10) Mitral valve insufficiency ?I34.0 - Nonrheumatic mitral (valve) insufficiency (ICD-10) Dyspnea ?R06.00 - Dyspnea, unspecified (ICD-10) Surgical History (Updated 09/30/23 @ 06:36 by Brisa Archer) History of back surgery ?Z98.890 - Other specified postprocedural states (ICD-10) History of total right knee replacement ?Z96.651 - Presence of right artificial knee joint (ICD-10) History of knee replacement procedure of left knee ?Z96.652 - Presence of left artificial knee joint (ICD-10) Family History (Updated 09/30/23 @ 06:33 by Christin Barahona) Other Family history of cancer Family history of hypertension Family history of myocardial infarction Social History (Updated 09/30/23 @ 06:35 by Christin Barahona) Within the past year, how often did you have a drink containing alcohol: never Within the past year, how many standard drinks containing alcohol did you have on a typical day: 1 or 2 Within the past year, how often did you have six or more drinks on one occasion: never Total score: 0 Score interpretation: A score less than 3 is consistent with normal alcohol consumption. Smoking status: Never smoker Non-prescribed substance use: denies use Previous occupational history: retired Highest level of school completed/degree received: high school graduate Are you now , , , , never or living with a partner: In a typical week, how many times do you talk on the telephone with family, friends, or neighbors: 3 or more times per week How often do you get together with friends or relatives: 3 or more times per week How often do you attend moravian or evangelical services: 4 or more times per year Little interest or pleasure in doing things: not at all Feeling down, depressed, or hopeless: not at all Feel stressed/tense/nervous/anxious/difficulty sleeping: to some extent Life stressor details: back pain Do you think of yourself as: straight/heterosexual Gender Identity: female Exam Narrative Exam Narrative: Nurses notes and vital signs reviewed and patient is not hypoxic. afebrile General: Well-appearing and in no apparent distress. Skin: Warm, dry, no pallor noted. Eye: Pupils are equal, round and EOMI. No scleral icterus. Cardiovascular: Regular Rate and Rhythm without murmur, gallop or rub. Respiratory: No accessory muscle use or respiratory distress. Lungs are clear to auscultation, no wheezing, rales or rhonchi GI: Abdomen is soft, non-distended. Normal bowel sounds. No tenderness to palpation. No rebound, guarding, or rigidity noted. Rectal: proctored exam in presence of ED nurse Kasi Grubbs. Patient has a hemorrhoid that is not inflamed, swollen or tender. I do not see active bleeding. No anal fissure. No anal mass. Neurological: A&O x4. No cranial nerve dysfunction observed. No truncal ataxia. Moves all extremities. Sensation intact. Psychiatric: Cooperative and interactive. Normal mood and affect. Constitutional Vital Signs, click to edit/add: Last Vital Signs Temp 98.8 F 10/18/23 16:51 Pulse 69 10/18/23 16:51 Resp 18 10/18/23 16:51 BP 137/79 10/18/23 16:51 Pulse Ox 98 10/18/23 16:51 O2 Del Method Room Air 10/18/23 16:51 Course Vital Signs Vital signs: Vital Signs Temperature 98.8 F 10/18/23 16:51 Pulse Rate 69 10/18/23 16:51 Respiratory Rate 18 10/18/23 16:51 Blood Pressure 137/79 10/18/23 16:51 Pulse Oximetry 98 10/18/23 16:51 Oxygen Delivery Method Room Air 10/18/23 16:51 Temperature 98.8 F 10/18/23 16:51 Pulse Rate 69 10/18/23 16:51 Respiratory Rate 18 10/18/23 16:51 Blood Pressure 137/79 10/18/23 16:51 Pulse Oximetry 98 10/18/23 16:51 Oxygen Delivery Method Room Air 10/18/23 16:51 Medical Decision Making MDM Narrative Medical decision making narrative: Patient had a small amount of bleeding anally after wiping following BM. No clot passage or significant blood loss. No other symptoms. No active bleeding at this time. Patient given reassurance and we discussed Eliquis use and possible side effects. She was instructed on reasons to return to the ED including abdominal pain, passage of clots or large amounts of blood, chest pain, shortness fo breath, syncope. She can see her PCP for follow up as needed. Discharge Plan Discharge Stand Alone Forms: Portal Instructions Chief Complaint: GI Bleed Clinical Impression: External hemorrhoid, Anal bleeding Patient Disposition: Home, Self-Care Time of Disposition Decision: 17:25 Prescriptions / Home Meds: No Action Eliquis 5 mg Tablet 5 mg PO BID Qty: 60 11RF furosemide 20 mg tablet 20 mg PO DAILY amiodarone [Pacerone] 200 mg Tablet 200 mg PO BID liothyronine 5 mcg Tablet 5 mcg PO DAILY losartan [Cozaar] 100 mg tablet 100 mg PO DAILY pantoprazole 40 mg tablet,delayed release (DR/EC) 40 mg PO DAILY loperamide [Anti-Diarrheal (loperamide)] 2 mg capsule 2 mg PO DAILY escitalopram oxalate [Lexapro] 10 mg tablet 10 mg PO DAILY atorvastatin 40 mg tablet 40 mg PO DAILY Vision Tablet 1 tab PO DAILY isosorbide mononitrate 30 mg Tablet Extended Release 24 Hr 30 mg PO Q24H Qty: 30 11RF hydralazine 25 mg tablet 25 mg PO BID Instructions: Hemorrhoids (ED), Rectal Bleeding (ED) Referrals: Demarco Graves MD [Primary Care Provider] - 1 week
[2023-10-18 17:32] VITALS: BP 135/70; PULSE 64; RESP 16; O2SAT 97
== END 2023-10-18 17:33 | disposition home or self-care (01) ==
PROVIDERS: Emergency Provider Emergency Medicine; PCP Family Medicine
DX: K62.5 Hemorrhage of anus and rectum (principal); K64.4 Residual hemorrhoidal skin tags; I48.91 Unspecified atrial fibrillation; Z79.01 Long term (current) use of anticoagulants; Z79.899 Other long term (current) drug therapy; I10 Essential (primary) hypertension; I34.0 Nonrheumatic mitral (valve) insufficiency; K58.9 Irritable bowel syndrome, unspecified; Z96.652 Presence of left artificial knee joint; Z96.651 Presence of right artificial knee joint; Z98.890 Other specified postprocedural states
CPT/HCPCS: 99281

== ENCOUNTER 2023-11-04 11:22 | Outpatient (OUT) | payer MEDICARE, OTHER, SELFPAY ==
--- NOTE | 2023-11-04 11:27 | US_ITS ---
The [address] [address] Patient Name: SON WILEY MRN: [id number] date: 1945 Sex: F Assigned Patient Location: [facility] Current Patient Location: [facility] Accession/Order Number: [id number] Exam Date: 11/04/2023 11:30 Report Date: 11/04/2023 12:14 At the request of: PAT NEWELL Procedure: US arterial duplex LE RT EXAMINATION: US arterial duplex LE RT HISTORY: groin mass R19.09 r COMPARISON: No relevant comparison available. TECHNIQUE: Color duplex Doppler ultrasound evaluation analysis was performed in the usual manner. FINDINGS: Identified anterior to the proximal right femoral artery is a focal 3.2 x 2.6 x 3.6 cm mixed soft tissue and fluid collection with some peripheral color flow, this is connected to the underlying femoral artery by a patent 2.6 mm channel. 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
== END 2023-11-04 11:23 | disposition home or self-care (01) ==
LOC: RAD 11:23
PROVIDERS: PCP Family Medicine; Visit Provider Family Medicine
DX: R19.09 Other intra-abdominal and pelvic swelling, mass and lump (principal); I72.4 Aneurysm of artery of lower extremity
CPT/HCPCS: 93926

== ENCOUNTER 2023-12-19 14:23 | Outpatient (OUT) | payer MEDICARE, OTHER, SELFPAY ==
[2023-12-19 15:43] LABS: Alanine Aminotransferase 17 U/L (14-59); Albumin Globulin Ratio 1.2; Albumin Level 3.7 g/dL (3.4-5.0); Alkaline Phosphatase 83 U/L (46-116); Anion Gap 13.3; Aspartate Amino Transferase 12 U/L (15-37); Bilirubin Total 0.7 mg/dL (0.2-1.0); Calcium 9.8 mg/dL (8.5-10.1); Carbon Dioxide 26.6 mmol/L (21.0-32.0); Chloride 105 mmol/L (98-107); Estimated GFR (African America 45 (>=60); Estimated GFR (Non-African Ame 37 (>=60); Globulin 3.1 g/dL; Glucose 95 mg/dL (74-106); Potassium 3.9 mmol/L (3.5-5.1); Sodium 141 mmol/L (136-145); Total Protein 6.8 g/dL (6.4-8.2)
== END 2023-12-19 14:24 | disposition home or self-care (01) ==
LOC: LAB 14:24
PROVIDERS: PCP Family Medicine; Visit Provider Family Medicine
DX: K21.9 Gastro-esophageal reflux disease without esophagitis (principal)
CPT/HCPCS: 36415; 80053

== ENCOUNTER 2023-12-19 14:27 | Outpatient (OUT) | payer MEDICARE, OTHER, SELFPAY ==
[2023-12-19 15:35] LABS: Basophils Percent Auto 0.6 % (0.2-2.0); Eosinophils Absolute Auto 0.1 10^3/uL (0.0-0.7); Eosinophils Percent Auto 1.5 % (0.9-7.0); Hematocrit 38.1 % (36.0-48.0); Hemoglobin 12.2 g/dL (12.0-16.0); Immature Granulocytes Abs Auto 0.02 10^3/uL (0.00-0.03); Immature Granulocytes Pct Auto 0.3 % (0.0-0.5); Lymphocytes Absolute Auto 1.4 10^3/uL (1.2-3.8); Lymphocytes Percent Auto 20.1 % (20.5-60.0); Mean Corpuscular Hemoglobin 30.8 pg (26.7-34.0); Mean Corpuscular Volume 96.2 fL (81.0-99.0); Mean Platelet Volume 10.8 fL (9.5-13.5); Monocytes Absolute Auto 0.7 10^3/uL (0.3-0.8); Monocytes Percent Auto 9.5 % (1.7-12.0); Neutrophils Absolute Auto 4.6 10^3/uL (1.4-6.5); Platelet Count 210 10^3/uL (150-450); Red Blood Count 3.96 10^6/uL (4.20-5.40); Red Cell Distribution Width 13.9 % (11.0-15.0); White Blood Count 6.8 10^3/uL (4.0-11.0)
[2023-12-19 15:49] LABS: Magnesium 2.1 mg/dL (1.8-2.4)
== END 2023-12-19 14:28 | disposition home or self-care (01) ==
LOC: LAB 14:30
PROVIDERS: PCP Family Medicine
DX: K21.9 Gastro-esophageal reflux disease without esophagitis (principal); I34.0 Nonrheumatic mitral (valve) insufficiency; I25.118 Atherosclerotic heart disease of native coronary artery with other forms of angina pectoris
CPT/HCPCS: 36415; 80053; 83735; 83880; 85025

== ENCOUNTER 2023-12-29 08:01 | Emergency (ER) | payer MEDICARE, OTHER, SELFPAY ==
[2023-12-29 08:06] VITALS: BP 139/94; PULSE 85; TEMP 37.2; O2SAT 95; BMI 31.2
--- NOTE | 2023-12-29 08:25 | ED_ITS ---
HPI - SOB/Dyspnea General Chief Complaint: Shortness of Breath/Dyspnea Stated Complaint: SOB Time Seen by Provider: 12/29/23 08:05 Source: patient Mode of arrival: walk-in History of Present Illness HPI Narrative: 78-year-old female presents for shortness of breath. She had a cardiac stent placed on December 02 at the [facility]. She felt a bit better after that was placed but then developed shortness of breath which she has had for the last few weeks. She does not complain of chest pain or fever. No ankle edema and she has been taking all of her medications. Related Data Home Medications ?Medication ?Instructions ?Recorded ?Confirmed atorvastatin 40 mg tablet 40 mg PO DAILY 06/19/23 10/18/23 escitalopram oxalate 10 mg tablet 10 mg PO DAILY 06/19/23 10/18/23 (Lexapro) loperamide 2 mg capsule 2 mg PO DAILY 06/19/23 10/18/23 (Anti-Diarrheal (loperamide)) losartan 100 mg tablet (Cozaar) 100 mg PO DAILY 06/19/23 10/18/23 pantoprazole 40 mg tablet,delayed 40 mg PO DAILY 06/19/23 10/18/23 release vitamin A-vitamin C-vit E-min 1 tab PO DAILY 06/19/23 10/18/23 tablet (Vision tablet) hydralazine 25 mg tablet 25 mg PO BID 10/03/23 10/18/23 amiodarone 200 mg tablet (Pacerone) 200 mg PO BID 10/18/23 10/18/23 furosemide 20 mg tablet 20 mg PO DAILY 10/18/23 10/18/23 liothyronine 5 mcg tablet 5 mcg PO DAILY 10/18/23 10/18/23 Previous Rx's ?Medication ?Instructions ?Recorded isosorbide mononitrate 30 mg 30 mg PO Q24H #30 tabs 06/20/23 tablet,extended release 24 hr apixaban 5 mg tablet (Eliquis) 5 mg PO BID #60 tabs 09/30/23 albuterol sulfate 90 mcg/actuation 2 inh inhalation Q4H PRN shortness 12/29/23 aerosol inhaler of breath or wheezing #8.5 grams Allergies Allergy/AdvReac Type Severity Reaction Status Date / Time SERINA Inhibitors Allergy Severe Verified 12/29/23 08:09 diltiazem Allergy Severe shortness Verified 12/29/23 08:09 of breath gabapentin [From Neurontin] Allergy Severe Verified 12/29/23 08:09 metoprolol Allergy Severe Verified 12/29/23 08:09 amlodipine AdvReac Severe swelling Verified 12/29/23 08:09 morphine AdvReac Severe Nausea Verified 12/29/23 08:09 Review of Systems ROS Narrative A ten point review of systems is negative except as noted above. PFSH PFSH Medical History (Updated 12/29/23 @ 10:59 by Victoriano Christiansen MD) Raynauds syndrome ?I73.00 - Raynaud's syndrome without gangrene (ICD-10) IBS (irritable bowel syndrome) ?K58.9 - Irritable bowel syndrome without diarrhea (ICD-10) Atrial fibrillation with rapid ventricular response ?I48.91 - Unspecified atrial fibrillation (ICD-10) Atrial fibrillation, new onset ?I48.91 - Unspecified atrial fibrillation (ICD-10) HTN (hypertension) ?I10 - Essential (primary) hypertension (ICD-10) Mitral valve insufficiency ?I34.0 - Nonrheumatic mitral (valve) insufficiency (ICD-10) Dyspnea ?R06.00 - Dyspnea, unspecified (ICD-10) Surgical History (Updated 09/30/23 @ 06:36 by Brisa Archer) History of back surgery ?Z98.890 - Other specified postprocedural states (ICD-10) History of total right knee replacement ?Z96.651 - Presence of right artificial knee joint (ICD-10) History of knee replacement procedure of left knee ?Z96.652 - Presence of left artificial knee joint (ICD-10) Family History (Updated 09/30/23 @ 06:33 by Christin Barahona) Other Family history of cancer Family history of hypertension Family history of myocardial infarction Social History (Updated 09/30/23 @ 06:35 by Christin Barahona) Within the past year, how often did you have a drink containing alcohol: never Within the past year, how many standard drinks containing alcohol did you have on a typical day: 1 or 2 Within the past year, how often did you have six or more drinks on one occasion: never Total score: 0 Score interpretation: A score less than 3 is consistent with normal alcohol consumption. Smoking status: Never smoker Non-prescribed substance use: denies use Previous occupational history: retired Highest level of school completed/degree received: high school graduate Are you now , , , , never or living with a partner: In a typical week, how many times do you talk on the telephone with family, friends, or neighbors: 3 or more times per week How often do you get together with friends or relatives: 3 or more times per week How often do you attend druze or orthodox services: 4 or more times per year Little interest or pleasure in doing things: not at all Feeling down, depressed, or hopeless: not at all Feel stressed/tense/nervous/anxious/difficulty sleeping: to some extent Life stressor details: back pain Do you think of yourself as: straight/heterosexual Gender Identity: female Exam Narrative Exam Narrative: Nurses note and vital signs reviewed and patient is not hypoxic. General: The patient appears well and in no apparent distress. Patient is resting comfortably on cart. She is speaking in full sentences. Skin: Warm, dry, no pallor noted. There is no rash noted. Head: Normocephalic, atraumatic Eye: Normal conjunctiva, no drainage Ears, Nose, Mouth, and Throat: oral mucosa is moist. Nares patent. Cardiovascular: Regular Rate and Rhythm Respiratory: Patient is in no distress, no accessory muscle use, lungs are clear to auscultation, no wheezing, rales or rhonchi. Good air movement present Back: non-tender GI: Soft and nontender Musculoskeletal: The patient has no evidence of calf tenderness, no pitting edema, symmetrical pulses noted bilaterally Neurological: A&O, normal speech Psychiatric: Cooperative Constitutional Vital Signs, click to edit/add: Last Vital Signs Temp 98.9 F 12/29/23 08:06 Pulse 68 12/29/23 10:46 Resp 20 12/29/23 10:46 BP 150/90 H 12/29/23 10:46 Pulse Ox 98 12/29/23 10:46 O2 Del Method Room Air 12/29/23 10:46 Course Vital Signs Vital signs: Vital Signs Temperature 98.9 F 12/29/23 08:06 Pulse Rate 85 12/29/23 08:06 Respiratory Rate 20 12/29/23 08:06 Blood Pressure 139/94 H 12/29/23 08:06 Pulse Oximetry 95 12/29/23 08:06 Oxygen Delivery Method Room Air 12/29/23 08:06 Temperature 98.9 F 12/29/23 08:06 Pulse Rate 68 12/29/23 10:46 Respiratory Rate 20 12/29/23 10:46 Blood Pressure 150/90 H 12/29/23 10:46 Pulse Oximetry 98 12/29/23 10:46 Oxygen Delivery Method Room Air 12/29/23 10:46 MDM - SOB/Dyspnea MDM Narrative Medical decision making narrative: Her symptoms have been present for several weeks. She states she always coughs up yellow phlegm, this is not new for her. She states it is due to sinus issues. Clinically I do not suspect pneumonia and I have no clinical suspicion of pulmonary embolism or congestive heart failure. She will be discharged home and will follow-up with her PCP. Treatment diagnosis and follow-up were discussed with the patient. She is requesting albuterol and was prescribed an inhaler. Differential Diagnosis Differential diagnosis: Likely congestive heart failure, community acquired pneumonia, asthma with exacerbation and pulmonary embolism Lab Data Attestation: I reviewed the patient's lab results. Labs: Lab Results 12/29/23 Range/Units 08:40 WBC 5.7 (4.0-11.0) 10^3/uL RBC 3.79 L (4.20-5.40) 10^6/uL Hgb 11.7 L (12.0-16.0) g/dL Hct 36.1 (36.0-48.0) % MCV 95.3 (81.0-99.0) fL MCH 30.9 (26.7-34.0) pg MCHC 32.4 (29.9-35.2) g/dL RDW 13.5 (11.0-15.0) % Plt Count 199 (150-450) 10^3/uL MPV 10.3 (9.5-13.5) fL Neut % (Auto) 71.6 (43.0-75.0) % Lymph % (Auto) 15.5 L (20.5-60.0) % [place] % (Auto) 10.6 (1.7-12.0) % Eos % (Auto) 1.4 (0.9-7.0) % Baso % (Auto) 0.5 (0.2-2.0) % Neut # (Auto) 4.1 (1.4-6.5) 10^3/uL Lymph # (Auto) 0.9 L (1.2-3.8) 10^3/uL [place] # (Auto) 0.6 (0.3-0.8) 10^3/uL Eos # (Auto) 0.1 (0.0-0.7) 10^3/uL Baso # (Auto) 0.0 (0.0-0.1) 10^3/uL Abs Immat Gran (auto) 0.02 (0.00-0.03) 10^3/uL Imm/Tot Granulo (auto) 0.4 (0.0-0.5) % Sodium 139 (136-145) mmol/L Potassium 3.4 L (3.5-5.1) mmol/L Chloride 104 (98-107) mmol/L Carbon Dioxide 24.4 (21.0-32.0) mmol/L Anion Gap 14.0 BUN 14.0 (7.0-18.0) mg/dL Creatinine 1.41 H (0.55-1.02) mg/dL Est GFR ( Amer) 44 L (>=60) Est GFR (Non-Af Amer) 36 L (>=60) BUN/Creatinine Ratio 9.9 Glucose 119 H (74-106) mg/dL Calcium 9.4 (8.5-10.1) mg/dL Troponin I High Sens 7.2 (4.0-51.3) pg/mL NT-Pro-B Natriuret Pep 1292.0 (<=1800.0) pg/mL Imaging Data Chest x-ray: Radiologist's impression: ITS Impressions Chest X-Ray 12/29/23 08:25 IMPRESSION: Consider mild congestive and/or interstitial infiltrative changes as noted. Electronically authenticated by: TAI CORDERO Date: 12/29/2023 09:33 ECG Data Attestation: I personally reviewed and interpreted this ECG as follows: (EKG on my interpretation shows normal sinus rhythm without acute change and a rate of 78) Discharge Plan Discharge Stand Alone Forms: Portal Instructions Chief Complaint: Shortness of Breath/Dyspnea Clinical Impression: Dyspnea Patient Disposition: Home, Self-Care Time of Disposition Decision: 10:59 Condition: Good Mode of Transportation: Private Vehicle Prescriptions / Home Meds: New albuterol sulfate 90 mcg/actuation HFA aerosol inhaler 2 inh inhalation Q4H PRN (Reason: shortness of breath or wheezing) Qty: 8.5 0RF No Action Eliquis 5 mg Tablet 5 mg PO BID Qty: 60 11RF furosemide 20 mg tablet 20 mg PO DAILY amiodarone [Pacerone] 200 mg Tablet 200 mg PO BID liothyronine 5 mcg Tablet 5 mcg PO DAILY losartan [Cozaar] 100 mg tablet 100 mg PO DAILY pantoprazole 40 mg tablet,delayed release (DR/EC) 40 mg PO DAILY loperamide [Anti-Diarrheal (loperamide)] 2 mg capsule 2 mg PO DAILY escitalopram oxalate [Lexapro] 10 mg tablet 10 mg PO DAILY atorvastatin 40 mg tablet 40 mg PO DAILY Vision Tablet 1 tab PO DAILY isosorbide mononitrate 30 mg Tablet Extended Release 24 Hr 30 mg PO Q24H Qty: 30 11RF hydralazine 25 mg tablet 25 mg PO BID Print Language: Arabic Instructions: Dyspnea (ED) Additional Instructions: See Dr. Graves this week. Call today for an appointment. Referrals: Demarco Graves MD [Primary Care Provider] - 1 week
--- NOTE | 2023-12-29 08:25 | XR_ITS ---
The [address] [address] Patient Name: SON WILEY MRN: [id number] date: 1945 Sex: F Assigned Patient Location: ER Current Patient Location: ER Accession/Order Number: [id number] Exam Date: 12/29/2023 08:55 Report Date: 12/29/2023 09:33 At the request of: ISIDRA PAUL Procedure: XR chest 1V EXAM: XR chest 1V HISTORY: SOB COMPARISON: Chest study dated 10/02/2023 TECHNIQUE: AP view of the chest was obtained with portable technique at 0846 hours. FINDINGS: Heart and mediastinal contours are unremarkable in appearance. Mild prominence of interstitial markings, consider edema related to congestive changes and/or infiltrates. There may be small bilateral pleural effusions inferiorly. No obvious pneumothorax. Bony structures appear grossly intact. XR/XR chest 1V IMPRESSION: Consider mild congestive and/or interstitial infiltrative changes as noted. Electronically authenticated by: TAI CORDERO Date: 12/29/2023 09:33
--- NOTE | 2023-12-29 08:25 | ECG_ITS ---
The [facility] Test Date: 2023-12-29 Pat Name: SON WILEY Department: Room: - Gender: Female Freight Coordinator: : 1945 Requested By: PAT NEWELL Order Number: [id number] Reading MD: PAT NEWELL Measurements Intervals [place] Rate: 78 P: 58 AL: 154 QRS: 70 QRSD: 82 T: 60 QT: 406 QTc: 440 Interpretive Statements 1100 Sinus rhythm 9110 normal ECG Compared to ECG 10/03/2023 03:26:25 No significant changes Electronically Signed On 12-30-2023 5:29:00 EDT by PAT NEWELL
[2023-12-29 09:02] LABS: Basophils Percent Auto 0.5 % (0.2-2.0); Eosinophils Absolute Auto 0.1 10^3/uL (0.0-0.7); Eosinophils Percent Auto 1.4 % (0.9-7.0); Hematocrit 36.1 % (36.0-48.0); Hemoglobin 11.7 g/dL (12.0-16.0); Immature Granulocytes Abs Auto 0.02 10^3/uL (0.00-0.03); Immature Granulocytes Pct Auto 0.4 % (0.0-0.5); Lymphocytes Absolute Auto 0.9 10^3/uL (1.2-3.8); Lymphocytes Percent Auto 15.5 % (20.5-60.0); Mean Corpuscular HGB Conc 32.4 g/dL (29.9-35.2); Mean Corpuscular Hemoglobin 30.9 pg (26.7-34.0); Mean Corpuscular Volume 95.3 fL (81.0-99.0); Mean Platelet Volume 10.3 fL (9.5-13.5); Monocytes Absolute Auto 0.6 10^3/uL (0.3-0.8); Monocytes Percent Auto 10.6 % (1.7-12.0); Neutrophils Absolute Auto 4.1 10^3/uL (1.4-6.5); Neutrophils Percent Auto 71.6 % (43.0-75.0); Platelet Count 199 10^3/uL (150-450); Red Blood Count 3.79 10^6/uL (4.20-5.40); Red Cell Distribution Width 13.5 % (11.0-15.0); White Blood Count 5.7 10^3/uL (4.0-11.0)
[2023-12-29 09:25] LABS: BUN Creatinine Ratio 9.9; Calcium 9.4 mg/dL (8.5-10.1); Carbon Dioxide 24.4 mmol/L (21.0-32.0); Chloride 104 mmol/L (98-107); Estimated GFR (African America 44 (>=60); Estimated GFR (Non-African Ame 36 (>=60); Glucose 119 mg/dL (74-106); Potassium 3.4 mmol/L (3.5-5.1); Sodium 139 mmol/L (136-145); Troponin I High Sensitivity 7.2 pg/mL (4.0-51.3)
[2023-12-29 10:46] VITALS: BP 150/90; PULSE 68; O2SAT 98
== END 2023-12-29 11:21 | disposition home or self-care (01) ==
PROVIDERS: Emergency Provider Emergency Medicine; PCP Family Medicine
DX: R06.00 Dyspnea, unspecified (principal); I73.00 Raynaud's syndrome without gangrene; K58.9 Irritable bowel syndrome, unspecified; I48.91 Unspecified atrial fibrillation; I34.0 Nonrheumatic mitral (valve) insufficiency; I10 Essential (primary) hypertension; Z98.890 Other specified postprocedural states; Z95.5 Presence of coronary angioplasty implant and graft; Z79.899 Other long term (current) drug therapy; Z79.890 Hormone replacement therapy; Z96.653 Presence of artificial knee joint, bilateral
CPT/HCPCS: 36415; 71045; 80048; 83880; 84484; 85025; 93005; 99285

== ENCOUNTER 2024-07-26 09:10 | Outpatient (OUT) | payer MEDICARE, OTHER, SELFPAY ==
[2024-07-26 09:54] LABS: Basophils Absolute Auto 0.1 10^3/uL (0.0-0.1); Basophils Percent Auto 1.1 % (0.2-2.0); Eosinophils Absolute Auto 0.2 10^3/uL (0.0-0.7); Eosinophils Percent Auto 3.9 % (0.9-7.0); Hematocrit 40.9 % (36.0-48.0); Hemoglobin 13.1 g/dL (12.0-16.0); Immature Granulocytes Abs Auto 0.01 10^3/uL (0.00-0.03); Immature Granulocytes Pct Auto 0.2 % (0.0-0.5); Lymphocytes Absolute Auto 1.6 10^3/uL (1.2-3.8); Lymphocytes Percent Auto 25.6 % (20.5-60.0); Mean Corpuscular Hemoglobin 28.7 pg (26.7-34.0); Mean Corpuscular Volume 89.7 fL (81.0-99.0); Monocytes Absolute Auto 0.8 10^3/uL (0.3-0.8); Monocytes Percent Auto 12.5 % (1.7-12.0); Neutrophils Absolute Auto 3.5 10^3/uL (1.4-6.5); Neutrophils Percent Auto 56.7 % (43.0-75.0); Platelet Count 191 10^3/uL (150-450); Red Blood Count 4.56 10^6/uL (4.20-5.40); Red Cell Distribution Width 15.7 % (11.0-15.0); White Blood Count 6.2 10^3/uL (4.0-11.0)
[2024-07-26 10:05] LABS: Alanine Aminotransferase 16 U/L (14-59); Anion Gap 13.9; Aspartate Amino Transferase 14 U/L (15-37); BUN Creatinine Ratio 20.6; Calcium 9.1 mg/dL (8.5-10.1); Carbon Dioxide 28.3 mmol/L (21.0-32.0); Chloride 106 mmol/L (98-107); Chol HDL Ratio 1.9; Cholesterol 120 mg/dL (<=200); Estimated GFR (African America 46 (>=60 mL/min/1.73m^2); Estimated GFR (Non-African Ame 38 (>=60 mL/min/1.73m^2); Glucose 86 mg/dL (74-106); HDL Cholesterol 64 mg/dL (40-60); Potassium 4.2 mmol/L (3.5-5.1); Sodium 144 mmol/L (136-145); Triglycerides 89 mg/dL (<=150); VLDL CHOLESTEROL 17.8 mg/dL
== END 2024-07-26 09:11 | disposition home or self-care (01) ==
LOC: LAB 09:13
PROVIDERS: PCP Family Medicine; Visit Provider Internal Medicine Cardiovascular Disease
DX: I25.10 Atherosclerotic heart disease of native coronary artery without angina pectoris (principal); E78.2 Mixed hyperlipidemia; I51.89 Other ill-defined heart diseases
CPT/HCPCS: 36415; 80048; 80061; 84450; 84460; 85025

== ENCOUNTER 2024-08-14 13:50 | Inpatient (IN) | payer MEDICARE, OTHER, SELFPAY ==
[2024-08-14] VITALS (61 sets, daily range): BP systolic 89–163; BP diastolic 59–114; PULSE 122–203; TEMP 36.4–36.9; O2SAT 86–98; BMI 30.5
--- NOTE | 2024-08-14 14:12 | XR_ITS ---
The [address] [address] Patient Name: SON WILEY MRN: [id number] date: 1945 Sex: F Assigned Patient Location: ER Current Patient Location: ER Accession/Order Number: [id number] Exam Date: 08/14/2024 14:20 Report Date: 08/14/2024 15:10 At the request of: PAIGE PALMER Procedure: XR chest 1V EXAMINATION: XR chest 1V, , 08/14/2024 2:20 PM EST INDICATION: tachycardia HISTORY: Ordering Provider Reason for Exam: tachycardia Technologist Note: Additional: COMPARISON: None. TECHNIQUE: Chest x-ray: One view. FINDINGS: No pneumothorax, pleural effusion or focal airspace consolidation. Heart is normal in size. Bony thorax is unremarkable. XR/XR chest 1V IMPRESSION: No acute cardiopulmonary process. Electronically authenticated by: MARCELLUS STALLWORTH Date: 08/14/2024 15:10
--- NOTE | 2024-08-14 14:12 | ECG_ITS ---
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
[2024-08-14] MEDS: AMIODARONE IN DEXTROSE,ISO-OSM 150 MG/100 ML PIGGYBACK 600 MG IV (14:26)
[2024-08-14 14:29] LABS: Basophils Absolute Auto 0.1 10^3/uL (0.0-0.1); Basophils Percent Auto 0.5 % (0.2-2.0); Eosinophils Absolute Auto 0.1 10^3/uL (0.0-0.7); Eosinophils Percent Auto 0.8 % (0.9-7.0); Hematocrit 42.8 % (36.0-48.0); Hemoglobin 14.2 g/dL (12.0-16.0); Immature Granulocytes Abs Auto 0.02 10^3/uL (0.00-0.03); Immature Granulocytes Pct Auto 0.2 % (0.0-0.5); Lymphocytes Absolute Auto 1.4 10^3/uL (1.2-3.8); Lymphocytes Percent Auto 13.3 % (20.5-60.0); Mean Corpuscular HGB Conc 33.2 g/dL (29.9-35.2); Mean Corpuscular Hemoglobin 29.4 pg (26.7-34.0); Mean Corpuscular Volume 88.6 fL (81.0-99.0); Monocytes Absolute Auto 1.4 10^3/uL (0.3-0.8); Monocytes Percent Auto 13.3 % (1.7-12.0); Neutrophils Absolute Auto 7.6 10^3/uL (1.4-6.5); Neutrophils Percent Auto 71.9 % (43.0-75.0); Platelet Count 224 10^3/uL (150-450); Red Blood Count 4.83 10^6/uL (4.20-5.40); Red Cell Distribution Width 15.3 % (11.0-15.0); White Blood Count 10.5 10^3/uL (4.0-11.0)
[2024-08-14] MEDS: 0.9 % SODIUM CHLORIDE 1,000 ML 999 ML IV (14:29)
[2024-08-14] MEDS: AMIODARONE IN DEXTROSE,ISO-OSM 360 MG/200 ML PLAST..BAG 33.333 MG IV (14:36)
[2024-08-14 14:52] LABS: Alanine Aminotransferase 14 U/L (14-59); Albumin Globulin Ratio 1.1; Albumin Level 3.7 g/dL (3.4-5.0); Alkaline Phosphatase 99 U/L (46-116); Anion Gap 16.3; Aspartate Amino Transferase 11 U/L (15-37); Bilirubin Total 1.2 mg/dL (0.2-1.0); Calcium 9.5 mg/dL (8.5-10.1); Carbon Dioxide 23.8 mmol/L (21.0-32.0); Chloride 103 mmol/L (98-107); Estimated GFR (African America 40 (>=60 mL/min/1.73m^2); Estimated GFR (Non-African Ame 33 (>=60 mL/min/1.73m^2); Globulin 3.5 g/dL; Glucose 149 mg/dL (74-106); Magnesium 1.7 mg/dL (1.8-2.4); Potassium 4.1 mmol/L (3.5-5.1); Sodium 139 mmol/L (136-145); Total Protein 7.2 g/dL (6.4-8.2); Troponin I High Sensitivity 15.7 pg/mL (4.0-51.3)
--- NOTE | 2024-08-14 15:13 | ED.ARRPALP1 ---
HPI - Arrhythmia/Palpitations General Chief Complaint: Arrhythmia/Palpitations Stated Complaint: AFIB Time Seen by Provider: 08/14/24 14:00 Source: patient Mode of arrival: walk-in Limitations: no limitations History of Present Illness HPI narrative: pt presents with fast heart rate and just not feeling right since this morning. She has atrial fibrillation and takes amiodarone daily. She cannot tolerate Cardizem. She was admitted previously for rapid afib and had to be given amiodarone drip and placed in ICU before she converted. She denied any recent illness - no cough or cold symptoms and no GI or complaints. She denied any chest pain or shortness of breath. No dizziness. She denied any recent change in med dosing or missed meds. Related Data Home Medications ?Medication ?Instructions ?Recorded ?Confirmed atorvastatin 40 mg tablet 40 mg PO DAILY 06/19/23 08/14/24 escitalopram oxalate 10 mg tablet 10 mg PO DAILY 06/19/23 08/14/24 (Lexapro) loperamide 2 mg capsule 2 mg PO DAILY 06/19/23 10/18/23 (Anti-Diarrheal (loperamide)) losartan 100 mg tablet (Cozaar) 100 mg PO DAILY 06/19/23 10/18/23 pantoprazole 40 mg tablet,delayed 40 mg PO DAILY 06/19/23 08/14/24 release vitamin A-vitamin C-vit E-min 1 tab PO DAILY 06/19/23 08/14/24 tablet (Vision tablet) hydralazine 25 mg tablet 25 mg PO BID 10/03/23 08/14/24 amiodarone 200 mg tablet (Pacerone) 200 mg PO BID 10/18/23 10/18/23 furosemide 20 mg tablet 20 mg PO DAILY 10/18/23 10/18/23 liothyronine 5 mcg tablet 5 mcg PO DAILY 10/18/23 08/14/24 clopidogrel 75 mg tablet 75 mg PO DAILY 08/14/24 08/14/24 Previous Rx's ?Medication ?Instructions ?Recorded isosorbide mononitrate 30 mg 30 mg PO Q24H #30 tabs 06/20/23 tablet,extended release 24 hr apixaban 5 mg tablet (Eliquis) 5 mg PO BID #60 tabs 09/30/23 albuterol sulfate 90 mcg/actuation 2 inh inhalation Q4H PRN shortness 12/29/23 aerosol inhaler of breath or wheezing #8.5 grams Allergies Allergy/AdvReac Type Severity Reaction Status Date / Time SERINA Inhibitors Allergy Severe Hives Verified 08/14/24 14:05 diltiazem Allergy Severe shortness Verified 08/14/24 14:05 of breath gabapentin (From Neurontin) Allergy Severe Confusion Verified 08/14/24 14:05 metoprolol Allergy Severe circulation Verified 08/14/24 14:05 amlodipine AdvReac Severe swelling Verified 08/14/24 14:05 morphine AdvReac Severe Nausea Verified 08/14/24 14:05 PFSH [facility] Medical History (Updated 08/14/24 @ 15:21 by Eduin Agustin) Raynauds syndrome ?I73.00 - Raynaud's syndrome without gangrene (ICD-10) IBS (irritable bowel syndrome) ?K58.9 - Irritable bowel syndrome without diarrhea (ICD-10) Atrial fibrillation with rapid ventricular response ?I48.91 - Unspecified atrial fibrillation (ICD-10) Atrial fibrillation, new onset ?I48.91 - Unspecified atrial fibrillation (ICD-10) HTN (hypertension) ?I10 - Essential (primary) hypertension (ICD-10) Mitral valve insufficiency ?I34.0 - Nonrheumatic mitral (valve) insufficiency (ICD-10) Dyspnea ?R06.00 - Dyspnea, unspecified (ICD-10) Surgical History (Updated 09/30/23 @ 06:36 by Brisa Archer) History of back surgery ?Z98.890 - Other specified postprocedural states (ICD-10) History of total right knee replacement ?Z96.651 - Presence of right artificial knee joint (ICD-10) History of knee replacement procedure of left knee ?Z96.652 - Presence of left artificial knee joint (ICD-10) Family History (Updated 09/30/23 @ 06:33 by Christin Barahona) Other Family history of cancer Family history of hypertension Family history of myocardial infarction Social History (Updated 09/30/23 @ 06:35 by Christin Barahona) Within the past year, how often did you have a drink containing alcohol: never Within the past year, how many standard drinks containing alcohol did you have on a typical day: 1 or 2 Within the past year, how often did you have six or more drinks on one occasion: never Total score: 0 Score interpretation: A score less than 3 is consistent with normal alcohol consumption. Smoking status: Never smoker Non-prescribed substance use: denies use Previous occupational history: retired Highest level of school completed/degree received: high school graduate Are you now , , , , never or living with a partner: In a typical week, how many times do you talk on the telephone with family, friends, or neighbors: 3 or more times per week How often do you get together with friends or relatives: 3 or more times per week How often do you attend religious or scientology services: 4 or more times per year Little interest or pleasure in doing things: not at all Feeling down, depressed, or hopeless: not at all Feel stressed/tense/nervous/anxious/difficulty sleeping: to some extent Life stressor details: back pain Do you think of yourself as: straight/heterosexual Gender Identity: female Exam Narrative Exam Narrative: Nurses notes and vital signs reviewed and patient is not hypoxic. afebrile General: Well-appearing and in no apparent distress. Skin: Warm, dry, no pallor noted. Head: Normocephalic, atraumatic. Eye: Pupils are equal, round and EOMI. No scleral icterus. Ears, Nose, Mouth, and Throat: Oral mucosa is moist Cardiovascular: tachycardia. Respiratory: No accessory muscle use or respiratory distress. Lungs are clear to auscultation, no wheezing, rales or rhonchi Musculoskeletal: normal ROM, no calf or popliteal tenderness, no lower extremity edema/swelling GI: Abdomen is soft, non-distended. Normal bowel sounds. No tenderness to palpation. No rebound, guarding, or rigidity noted. Neurological: A&O x4. No cranial nerve dysfunction observed. No truncal ataxia. Moves all extremities. Sensation intact. Psychiatric: Cooperative and interactive. Normal mood and affect. Constitutional Vital Signs, click to edit/add: Last Vital Signs Temp 98.4 F 08/14/24 14:05 Pulse 146 H 08/14/24 15:15 Resp 18 08/14/24 15:15 BP 114/78 08/14/24 15:10 Pulse Ox 95 08/14/24 15:15 O2 Del Method Room Air 08/14/24 14:05 Course Vital Signs Vital signs: Vital Signs Pulse Oximetry 95 08/14/24 14:00 Temperature 98.4 F 08/14/24 14:05 Pulse Rate 146 H 08/14/24 15:15 Respiratory Rate 18 08/14/24 15:15 Blood Pressure 114/78 08/14/24 15:10 Pulse Oximetry 95 08/14/24 15:15 Oxygen Delivery Method Room Air 08/14/24 14:05 MDM - Arrhythmia/Palpitations MDM Narrative Medical decision making narrative: Patient was placed on surveillance system monitor and EKG obtained. Blood drawn and sent for evaluation. Portable chest x-ray was obtained. The patient was given a 150 mg bolus of amiodarone IV. She was then placed on amiodarone drip at 1 mg/min IV. She will stay on this for the next 6 hours. If the rapid atrial fibrillation continues, she will then be transition to 0.5 mg/min IV dose of amiodarone. CBC unremarkable. BMP reveals mildly elevated BUN and 23 1.53, respectively. Normal electrolytes, except for magnesium which is decreased at 1.7. LFTs negative. Chest x-ray did not show any acute cardiopulmonary abnormality. Following the bolus of amiodarone, the patient's heart rate decreased into the 150-160 range. She was started on the 1 mg/min IV amiodarone drip, as detailed above. This decrease in her heart rate caused significant decrease in her symptoms. She was ordered to receive 2gm of Magnesium IV. @ [address] Cuevas to discuss admission to the ICU for continued amiodarone treatment to manage her rapid atrial fibrillation. @ [address] Cuevas and he agreed to admit the patient to the iCU. He will manage her care until Dr Graves resumes care of this patient. Pt agreeable to admission. Medical Records Attestation: I reviewed the patient's medical records. Lab Data Attestation: I reviewed the patient's lab results. Labs: Lab Results 08/14/24 Range/Units 14:11 WBC 10.5 (4.0-11.0) 10^3/uL RBC 4.83 (4.20-5.40) 10^6/uL Hgb 14.2 (12.0-16.0) g/dL Hct 42.8 (36.0-48.0) % MCV 88.6 (81.0-99.0) fL MCH 29.4 (26.7-34.0) pg MCHC 33.2 (29.9-35.2) g/dL RDW 15.3 H (11.0-15.0) % Plt Count 224 (150-450) 10^3/uL MPV 11.0 (9.5-13.5) fL Neut % (Auto) 71.9 (43.0-75.0) % Lymph % (Auto) 13.3 L (20.5-60.0) % [place] % (Auto) 13.3 H (1.7-12.0) % Eos % (Auto) 0.8 L (0.9-7.0) % Baso % (Auto) 0.5 (0.2-2.0) % Neut # (Auto) 7.6 H (1.4-6.5) 10^3/uL Lymph # (Auto) 1.4 (1.2-3.8) 10^3/uL [place] # (Auto) 1.4 H (0.3-0.8) 10^3/uL Eos # (Auto) 0.1 (0.0-0.7) 10^3/uL Baso # (Auto) 0.1 (0.0-0.1) 10^3/uL Abs Immat Gran (auto) 0.02 (0.00-0.03) 10^3/uL Imm/Tot Granulo (auto) 0.2 (0.0-0.5) % Sodium 139 (136-145) mmol/L Potassium 4.1 (3.5-5.1) mmol/L Chloride 103 (98-107) mmol/L Carbon Dioxide 23.8 (21.0-32.0) mmol/L Anion Gap 16.3 BUN 23.0 H (7.0-18.0) mg/dL Creatinine 1.53 H (0.55-1.02) mg/dL Est GFR ( Amer) 40 L (>=60 mL/min/1.73m^2) Est GFR (Non-Af Amer) 33 L (>=60 mL/min/1.73m^2) BUN/Creatinine Ratio 15.0 Glucose 149 H (74-106) mg/dL Calcium 9.5 (8.5-10.1) mg/dL Magnesium 1.7 L (1.8-2.4) mg/dL Total Bilirubin 1.2 H (0.2-1.0) mg/dL AST 11 L (15-37) U/L ALT 14 (14-59) U/L Alkaline Phosphatase 99 (46-116) U/L Troponin I High Sens 15.7 (4.0-51.3) pg/mL NT-Pro-B Natriuret Pep 310.0 (<=1800.0) pg/mL Total Protein 7.2 (6.4-8.2) g/dL Albumin 3.7 (3.4-5.0) g/dL Globulin 3.5 g/dL Albumin/Globulin Ratio 1.1 Imaging Data Chest x-ray: Attestation: I have reviewed the pertinent imaging results. Radiologist's impression: ITS Impressions Chest X-Ray 08/14/24 14:12 IMPRESSION: No acute cardiopulmonary process. Electronically authenticated by: MARCELLUS STALLWORTH Date: 08/14/2024 15:10 ECG Data Attestation: I personally reviewed and interpreted this ECG as follows: Interpretation: EKG interpretation: Emergency Department physician interpretation. Rapid atrial fibrillation at 181 bpm. Right axis deviation. Nonspecific ST to T wave changes. Critical Care Time Critical Care Time Critical Care Time: Yes Total Critical Care Time: 65 Attestation: Critical Care Time: 65 minutes, critical care time is separate from any procedures that are performed. The following was considered in the determination of critical care but not limited to the level medical decision-making, intensive cardiac and/or respiratory monitor, frequent vital sign monitoring, evaluation of laboratory studies, evaluation of a radiographic studies, oxygen monitoring and constant monitoring. Discharge Plan Discharge Chief Complaint: Arrhythmia/Palpitations Clinical Impression: Atrial fibrillation with rapid ventricular response Patient Disposition: Admitted As Inpatient Time of Disposition Decision: 15:18 Prescriptions / Home Meds: No Action Eliquis 5 mg Tablet 5 mg PO BID Qty: 60 11RF furosemide 20 mg tablet 20 mg PO DAILY amiodarone [Pacerone] 200 mg Tablet 200 mg PO BID liothyronine 5 mcg Tablet 5 mcg PO DAILY albuterol sulfate 90 mcg/actuation HFA aerosol inhaler 2 inh inhalation Q4H PRN (Reason: shortness of breath or wheezing) Qty: 8.5 0RF clopidogrel 75 mg tablet 75 mg PO DAILY losartan [Cozaar] 100 mg tablet 100 mg PO DAILY pantoprazole 40 mg tablet,delayed release (DR/EC) 40 mg PO DAILY loperamide [Anti-Diarrheal (loperamide)] 2 mg capsule 2 mg PO DAILY escitalopram oxalate [Lexapro] 10 mg tablet 10 mg PO DAILY atorvastatin 40 mg tablet 40 mg PO DAILY Vision Tablet 1 tab PO DAILY isosorbide mononitrate 30 mg Tablet Extended Release 24 Hr 30 mg PO Q24H Qty: 30 11RF hydralazine 25 mg tablet 25 mg PO BID Print Language: Australian Referrals: Demarco Graves MD [Primary Care Provider] - 1 week
[2024-08-14 16:10] LABS: Bilirubin Urine NEGATIVE (NEGATIVE); Blood Urine NEGATIVE (NEGATIVE); Clarity Urine CLEAR (CLEAR); Color Urine LT. YELLOW (YELLOW); Glucose Urine UA NEGATIVE (NEGATIVE); Ketones Urine TRACE mg/dL (NEGATIVE); Leukocyte Esterase Urine NEGATIVE (NEGATIVE); Nitrite Urine NEGATIVE (NEGATIVE); Protein Urine TRACE mg/dL (NEG/TRACE); Specific Gravity Urine 1.025 (1.005-1.025); Urine Microscopic Indicated NO; Urobilinogen Urine 0.2 EU/dL (0.2-1.0); pH Urine 5.5 (5.0-9.0)
[2024-08-14] MEDS: MAGNESIUM SULFATE IN WATER 2 GM/50 ML PREMIX IV (16:21)
[2024-08-14 16:23] LABS: TSH W/ REFLEX FT4 1.383 uIU/mL (0.358-3.740)
[2024-08-14] MEDS: ENOXAPARIN SODIUM 80 MG/0.8 ML SYRINGE SUBQ (17:10)
[2024-08-14] MEDS: AMIODARONE IN DEXTROSE,ISO-OSM 360 MG/200 ML PLAST..BAG 16.667 MG IV (20:11)
[2024-08-14] MEDS: HYDRALAZINE HCL 25 MG TABLET PO (20:22)
--- NOTE | 2024-08-14 20:55 | PM.HP ---
HPI H&P: HPI History of Present Illness Chief complaint: AFIB Rapid Atrial Fibrillation Narrative: 79 y o female with hx of Paroxysmal Afib was experiencing tired and low energy for past 3 days. Earlier today, she felt very short of breath and lightheaded after vacuuming and decided to check her BP and HR. She noticed her HR was in 200s so she came to ED for further evaluation. Patient reports compliance with her medications, denies recent illness or any new changes in her medications. She does not tolerate Diltiazem and also has an adverse reaction listed to BB. Upon arrival, her HR was > 200 and she was found to have Afib with RVR. Given her intolerance to CCB and BB, she was given IV Amiodarone bolus and started on IV amiodarone infusion. Of note, patient is not on stroke px due to recurrent hemorrhoidal bleeding when she was using Eliquis. I discussed increased risk of thrombo-embolic stroke with use of anti-arrhythmic drugs without anticoagulation with research instrumentation technician Traffic I Manager and while he agreed that conventional wisdom is to avoid use of anti arrhythmic w/o anticoagulation, given patient's intolerance to CCB and BB, there are not many options we are left with. He did however, recommended therapeutic Lovenox atleast while she is in the hospital. Upon further inquiry, I believe, she should be able to tolerate oral BB to help with rate control as her BB was stopped because of bluish discoloration noted by her provider when she was on BB. Patient was agreeable to use Lopressor. At the time of my evaluation, she denies having active CP, SOB but felt overall weak and could still feel her heart racing. Opioid HPI Opioid Management Most Recent Pain and Opioid Data: Last Pain Scale 3 10/03/23 00:44 10/03/23 Last Pain Assessment 08/14/24 18:00 Last ORT Total Score 0 08/14/24 17:48 08/14/24 Last ORT Risk Category Low Risk 08/14/24 17:48 08/14/24 Review of Systems ROS Status of ROS 10 or more systems reviewed and unremarkable except as noted in history and below [facility] Medical History (Updated 08/14/24 @ 20:58 by Shaikh Faith MD) (HFpEF) heart failure with preserved ejection fraction ?I50.30 - Unspecified diastolic (congestive) heart failure (ICD-10) CKD stage 3a, GFR 45-59 ml/min ?N18.31 - Chronic kidney disease, stage 3a (ICD-10) Hypothyroidism ?E03.9 - Hypothyroidism, unspecified (ICD-10) HLD (hyperlipidemia) ?E78.5 - Hyperlipidemia, unspecified (ICD-10) CAD (coronary artery disease) ?I25.10 - Atherosclerotic heart disease of [place] coronary artery without angina pectoris (ICD-10) Raynauds syndrome ?I73.00 - Raynaud's syndrome without gangrene (ICD-10) IBS (irritable bowel syndrome) ?K58.9 - Irritable bowel syndrome without diarrhea (ICD-10) Atrial fibrillation with rapid ventricular response ?I48.91 - Unspecified atrial fibrillation (ICD-10) Atrial fibrillation, new onset ?I48.91 - Unspecified atrial fibrillation (ICD-10) HTN (hypertension) ?I10 - Essential (primary) hypertension (ICD-10) Mitral valve insufficiency ?I34.0 - Nonrheumatic mitral (valve) insufficiency (ICD-10) Dyspnea ?R06.00 - Dyspnea, unspecified (ICD-10) Surgical History History of back surgery ?Z98.890 - Other specified postprocedural states (ICD-10) History of total right knee replacement ?Z96.651 - Presence of right artificial knee joint (ICD-10) History of knee replacement procedure of left knee ?Z96.652 - Presence of left artificial knee joint (ICD-10) Family History Other Family history of cancer Family history of hypertension Family history of myocardial infarction Social History Within the past year, how often did you have a drink containing alcohol: never Within the past year, how many standard drinks containing alcohol did you have on a typical day: 1 or 2 Within the past year, how often did you have six or more drinks on one occasion: never Total score: 0 Score interpretation: A score less than 3 is consistent with normal alcohol consumption. Smoking status: Never smoker Non-prescribed substance use: denies use Previous occupational history: retired Highest level of school completed/degree received: high school graduate Are you now , , , , never or living with a partner: In a typical week, how many times do you talk on the telephone with family, friends, or neighbors: 3 or more times per week How often do you get together with friends or relatives: 3 or more times per week How often do you attend buddhism or voodoo services: 4 or more times per year Little interest or pleasure in doing things: not at all Feeling down, depressed, or hopeless: not at all Feel stressed/tense/nervous/anxious/difficulty sleeping: to some extent Life stressor details: back pain Do you think of yourself as: straight/heterosexual Gender Identity: female Meds Home Medications and Allergies Home Medications ?Medication ?Instructions ?Recorded ?Confirmed ?Type atorvastatin 40 mg tablet 40 mg PO DAILY 06/19/23 08/14/24 History escitalopram oxalate 10 mg tablet 10 mg PO DAILY 06/19/23 08/14/24 History (Lexapro) loperamide 2 mg capsule 2 mg PO DAILY 06/19/23 08/14/24 History (Anti-Diarrheal (loperamide)) pantoprazole 40 mg tablet,delayed 40 mg PO DAILY 06/19/23 08/14/24 History release vitamin A-vitamin C-vit E-min 1 tab PO DAILY 06/19/23 08/14/24 History tablet (Vision tablet) isosorbide mononitrate 30 mg 30 mg PO Q24H #30 tabs 06/20/23 08/14/24 Rx tablet,extended release 24 hr hydralazine 25 mg tablet 25 mg PO BID 10/03/23 08/14/24 History liothyronine 5 mcg tablet 5 mcg PO DAILY 10/18/23 08/14/24 History albuterol sulfate 90 mcg/actuation 2 inh inhalation Q4H PRN shortness 12/29/23 08/14/24 Rx aerosol inhaler of breath or wheezing #8.5 grams clopidogrel 75 mg tablet 75 mg PO DAILY 08/14/24 08/14/24 History Allergies Allergy/AdvReac Type Severity Reaction Status Date / Time SERINA Inhibitors Allergy Severe Hives Verified 08/14/24 14:05 diltiazem Allergy Severe shortness Verified 08/14/24 14:05 of breath gabapentin (From Neurontin) Allergy Severe Confusion Verified 08/14/24 14:05 metoprolol Allergy Severe circulation Verified 08/14/24 14:05 amlodipine AdvReac Severe swelling Verified 08/14/24 14:05 morphine AdvReac Severe Nausea Verified 08/14/24 14:05 Exam Constitutional Vital Signs, click to edit/add: Last Vital Signs Temp 97.6 F 08/14/24 19:45 Pulse 133 H 08/14/24 19:45 Resp 15 08/14/24 19:45 BP 163/114 H 08/14/24 20:22 Pulse Ox 97 08/14/24 19:45 O2 Del Method Room Air 08/14/24 19:45 Documenting provider has reviewed patient's vital signs: yes Common normals: no apparent distress and oriented x3 General appearance: cooperative HENMT Common normals: normocephalic and head/scalp atraumatic Head and scalp: normocephalic and atraumatic Eye Common normals: conjunctivae normal and no scleral icterus Conjunctiva: conjunctiva(e) normal Respiratory Common normals: normal respiratory effort and clear to auscultation bilaterally Effort & inspection: able to speak in complete sentences Auscultation: clear to auscultation bilaterally Cardio Common normals: S1 normal heart sound and S2 normal heart sound Rate: tachycardic Rhythm: abnormal rhythm Heart sounds: S1 normal, S2 normal and murmur GI Common normals: Normal to inspection, nondistended, normoactive bowel sounds present, soft to palpation, non-tender and no hepatosplenomegaly Palpation: soft and no hepatosplenomegaly Extremity Common normals: no clubbing, cyanosis or edema Neuro Common normals: oriented x3, moves all extremities and no focal motor deficits Psych Common normals: mental status grossly normal, denies hallucinations, denies homicidal ideation and denies suicidal ideation Results Labs Labs: Short CBC 08/14/24 Range/Units 14:11 WBC 10.5 (4.0-11.0) 10^3/uL Hgb 14.2 (12.0-16.0) g/dL Hct 42.8 (36.0-48.0) % Plt Count 224 (150-450) 10^3/uL BMP 08/14/24 14:11 Sodium 139 Potassium 4.1 Chloride 103 Carbon Dioxide 23.8 BUN 23.0 H Creatinine 1.53 H Glucose 149 H Calcium 9.5 Liver Function 08/14/24 Range/Units 14:11 Total Bilirubin 1.2 H (0.2-1.0) mg/dL AST 11 L (15-37) U/L ALT 14 (14-59) U/L Alkaline Phosphatase 99 (46-116) U/L Albumin 3.7 (3.4-5.0) g/dL Urine 08/14/24 Range/Units 16:00 Urine Color Lt. yellow (YELLOW) Urine Clarity Clear (CLEAR) Urine pH 5.5 (5.0-9.0) Ur Specific [place] 1.025 (1.005-1.025) Urine Protein Trace (NEG/TRACE) mg/dL Urine Glucose (UA) Negative (NEGATIVE) mg/dL Assessment and Plan Assessment and Plan (1) Atrial fibrillation with rapid ventricular response: Assessment and Plan: Started on IV amiodarone infusion - 1 mg/kg/min for 6 hours followed by 0.5 mg/kg/min for 18 hours. Added PO lopressor 25 q12 and therapeutic Lovenox to reduce risk of thromboembolism. Slightly lower dose of Lovenox ordered due to her CKD 3 Hold off ECHO - as she had ECHO 10/04 and no sig change anticipated based on her presentation. (2) (HFpEF) heart failure with preserved ejection fraction: Assessment and Plan: Euvolemic. Monitor closely. C/w PO Lasix Qualifiers: Heart failure chronicity: chronic Qualified Code(s): I50.32 - Chronic diastolic (congestive) heart failure (3) HTN (hypertension): Assessment and Plan: Stable. C/w home medications. Added Lopressor. Qualifiers: Hypertension type: primary hypertension Qualified Code(s): I10 - Essential (primary) hypertension (4) CAD (coronary artery disease): Assessment and Plan: s/p PCI in 10/04. On ASA, PLAVIX and Lipitor. Qualifiers: Coronary Disease-Associated Artery/Lesion type: [place] artery [place] vs. transplanted heart: [place] heart Associated angina: without angina Qualified Code(s): I25.10 - Atherosclerotic heart disease of [place] coronary artery without angina pectoris (5) HLD (hyperlipidemia): Assessment and Plan: C/w Lipitor Qualifiers: Hyperlipidemia type: unspecified Qualified Code(s): E78.5 - Hyperlipidemia, unspecified (6) Hypothyroidism: Assessment and Plan: C/w Levothyroxine. Check TSH. Qualifiers: Hypothyroidism type: unspecified Qualified Code(s): E03.9 - Hypothyroidism, unspecified (7) CKD stage 3a, GFR 45-59 ml/min: Assessment and Plan: Renal function at baseline. Monitor Serum Cr. Plan Inpatient status as patient p/w Afib with RVR, rate >150 and will require close inpatient treatment and hemodynamic monitoring. Currently on IV amiodarone drip. If no improvement, may end up needing VIOLA Cardioversion.
[2024-08-15] VITALS (110 sets, daily range): BP systolic 95–161; BP diastolic 58–97; PULSE 51–144; TEMP 36.6–36.8; O2SAT 95–99
[2024-08-15] MEDS: TEMAZEPAM 15 MG CAPSULE PO ×2 (01:16→21:03)
--- NOTE | 2024-08-15 03:24 | ECG_ITS ---
[facility] Test Date: 2024-08-15 Pat Name: SON WILEY Department: Room: [facility] Gender: Female Catering Manager: : 1945 Requested By: PAT NEWELL Order Number: [id number] Reading MD: ABELINO PEREZ Measurements Intervals [place] Rate: 75 P: 52 [place]: 168 QRS: 67 QRSD: 82 T: 81 QT: 378 QTc: 406 Interpretive Statements 1100 Sinus rhythm 4068 Nonspecific Twave abnormality 9130 borderline ECG Compared to ECG 08/14/2024 14:03:12 Atrial fibrillation no longer present ST (T wave) deviation no longer present Possible ischemia no longer present Right-axis deviation no longer present Electronically Signed On 08-16-2024 20:25:10 EST by ABELINO PEREZ
[2024-08-15] MEDS: OMEPRAZOLE 40 MG CAPSULE.DR PO (05:47)
[2024-08-15 06:03] LABS: Basophils Percent Auto 0.3 % (0.2-2.0); Eosinophils Absolute Auto 0.1 10^3/uL (0.0-0.7); Eosinophils Percent Auto 0.5 % (0.9-7.0); Hematocrit 38.7 % (36.0-48.0); Hemoglobin 12.8 g/dL (12.0-16.0); Immature Granulocytes Abs Auto 0.02 10^3/uL (0.00-0.03); Immature Granulocytes Pct Auto 0.2 % (0.0-0.5); Lymphocytes Absolute Auto 1.6 10^3/uL (1.2-3.8); Lymphocytes Percent Auto 16.9 % (20.5-60.0); Mean Corpuscular HGB Conc 33.1 g/dL (29.9-35.2); Mean Corpuscular Hemoglobin 29.2 pg (26.7-34.0); Mean Corpuscular Volume 88.4 fL (81.0-99.0); Mean Platelet Volume 11.1 fL (9.5-13.5); Monocytes Absolute Auto 1.3 10^3/uL (0.3-0.8); Monocytes Percent Auto 13.5 % (1.7-12.0); Neutrophils Absolute Auto 6.6 10^3/uL (1.4-6.5); Neutrophils Percent Auto 68.6 % (43.0-75.0); Platelet Count 186 10^3/uL (150-450); Red Blood Count 4.38 10^6/uL (4.20-5.40); Red Cell Distribution Width 15.7 % (11.0-15.0); White Blood Count 9.6 10^3/uL (4.0-11.0)
[2024-08-15 06:29] LABS: Alanine Aminotransferase 14 U/L (14-59); Albumin Level 3.2 g/dL (3.4-5.0); Alkaline Phosphatase 85 U/L (46-116); Anion Gap 13.7; Aspartate Amino Transferase 13 U/L (15-37); BUN Creatinine Ratio 12.3; Bilirubin Total 0.5 mg/dL (0.2-1.0); Calcium 8.8 mg/dL (8.5-10.1); Carbon Dioxide 24.5 mmol/L (21.0-32.0); Chloride 105 mmol/L (98-107); Estimated GFR (African America 52 (>=60 mL/min/1.73m^2); Estimated GFR (Non-African Ame 43 (>=60 mL/min/1.73m^2); Globulin 3.1 g/dL; Glucose 119 mg/dL (74-106); Potassium 4.2 mmol/L (3.5-5.1); Sodium 139 mmol/L (136-145); Total Protein 6.3 g/dL (6.4-8.2)
[2024-08-15] MEDS: ENOXAPARIN SODIUM 60 MG/0.6 ML SYRINGE SUBQ ×2 (08:10→15:09)
[2024-08-15] MEDS: AMIODARONE IN DEXTROSE,ISO-OSM 360 MG/200 ML PLAST..BAG 16.667 MG IV (08:10)
[2024-08-15] MEDS: LOSARTAN POTASSIUM 50 MG TABLET 100 MG PO (08:12)
[2024-08-15] MEDS: LIOTHYRONINE SODIUM 5 MCG TABLET PO (08:12)
[2024-08-15] MEDS: METOPROLOL TARTRATE 25 MG TABLET PO (08:12)
[2024-08-15] MEDS: HYDRALAZINE HCL 25 MG TABLET PO ×2 (08:12→21:04)
[2024-08-15] MEDS: CLOPIDOGREL BISULFATE 75 MG TABLET PO (08:12)
[2024-08-15] MEDS: ISOSORBIDE MONONITRATE 30 MG TAB.ER.24H PO (08:12)
[2024-08-15] MEDS: ATORVASTATIN CALCIUM 40 MG TABLET PO ×2 (08:12→21:04)
[2024-08-15] MEDS: VITS A,C,E/LUTEIN/MINERALS 1 TABLET 1 TAB PO (08:13)
[2024-08-15] MEDS: ESCITALOPRAM 10 MG TABLET PO (08:13)
[2024-08-15] MEDS: FUROSEMIDE 20 MG TABLET PO (08:13)
[2024-08-15 08:41] LABS: Lactate/Lactic Acid 1.6 mmol/L (0.4-2.0)
[2024-08-15 08:44] LABS: Thyroid Stimulating Hormone 2.697 uIU/mL (0.358-3.740)
[2024-08-15 08:48] LABS: Troponin I High Sensitivity 116.3 pg/mL (4.0-51.3)
--- NOTE | 2024-08-15 09:22 | P.PN_ITS ---
Progress Note: Subjective Subjective Interval history: Pt feels much better, converted to NSR Unable to tolerate the eliquis, will change to coumadin Exam Constitutional Vital Signs, click to edit/add: Last Vital Signs Temp 98.2 F 08/15/24 03:00 Pulse 68 08/15/24 06:00 Resp 16 08/15/24 04:00 BP 161/80 H 08/15/24 03:00 Pulse Ox 96 08/15/24 06:00 O2 Del Method Room Air 08/15/24 04:00 Documenting provider has reviewed patient's vital signs: yes Common normals: no apparent distress Chest Common normals: inspection of chest normal and palpation of chest normal Respiratory Common normals: normal respiratory effort, no retractions and clear to auscultation bilaterally Cardio Common normals: regular rate and regular rhythm Rate: regular rate Rhythm: regular rhythm Extremity Common normals: normal to inspection Progress Note: Objective Labs Labs: Short CBC 08/14/24 08/15/24 Range/Units 14:11 05:46 WBC 10.5 9.6 (4.0-11.0) 10^3/uL Hgb 14.2 12.8 (12.0-16.0) g/dL Hct 42.8 38.7 (36.0-48.0) % Plt Count 224 186 (150-450) 10^3/uL BMP 08/14/24 08/15/24 14:11 05:46 Sodium 139 139 Potassium 4.1 4.2 Chloride 103 105 Carbon Dioxide 23.8 24.5 BUN 23.0 H 15.0 Creatinine 1.53 H 1.22 H Glucose 149 H 119 H Calcium 9.5 8.8 Liver Function 08/14/24 08/15/24 Range/Units 14:11 05:46 Total Bilirubin 1.2 H 0.5 (0.2-1.0) mg/dL AST 11 L 13 L (15-37) U/L ALT 14 14 (14-59) U/L Alkaline Phosphatase 99 85 (46-116) U/L Albumin 3.7 3.2 L (3.4-5.0) g/dL Urine 08/14/24 Range/Units 16:00 Urine Color Lt. yellow (YELLOW) Urine Clarity Clear (CLEAR) Urine pH 5.5 (5.0-9.0) Ur Specific [place] 1.025 (1.005-1.025) Urine Protein Trace (NEG/TRACE) mg/dL Urine Glucose (UA) Negative (NEGATIVE) mg/dL Progress Note: A&P Assessment and Plan (1) Atrial fibrillation with rapid ventricular response: (2) (HFpEF) heart failure with preserved ejection fraction: Qualifiers: Heart failure chronicity: chronic Qualified Code(s): I50.32 - Chronic diastolic (congestive) heart failure (3) HTN (hypertension): Qualifiers: Hypertension type: primary hypertension Qualified Code(s): I10 - Essential (primary) hypertension (4) CAD (coronary artery disease): Qualifiers: Associated angina: without angina Coronary Disease-Associated Artery/Lesion type: [place] artery [place] vs. transplanted heart: [place] heart Qualified Code(s): I25.10 - Atherosclerotic heart disease of [place] coronary artery without angina pectoris (5) HLD (hyperlipidemia): Qualifiers: Hyperlipidemia type: unspecified Qualified Code(s): E78.5 - Hyperlipidemia, unspecified (6) Hypothyroidism: Qualifiers: Hypothyroidism type: unspecified Qualified Code(s): E03.9 - Hypothyroidism, unspecified (7) CKD stage 3a, GFR 45-59 ml/min: Plan Admission findings: Tachycardia due to a-fib rvr, pt has a history of that, dyspnea, uncontrolled hypertension , hypomagnesemia Atrial fibrillation with rapid ventricular response: On amidarone, will convert to oral and inc beta ken - Chronic (HFpEF) heart failure with preserved ejection fraction: BNP normal- cont with meds and rate control Acute NSTEMI type II - Elevated troponin this am, second is trending down and is likely rate dependent ischemia HTN (hypertension): Uncontrolled on admission, Increasing metoprolol fo rate control of the above CAD (coronary artery disease): No chest pain, See above, HLD (hyperlipidemia): Continue with current medications Hypothyroidism: Maintain current medications CKD stage 3a, GFR 45-59 ml/min: daily labs Depression - cont with home medications GERD - Cont with medications Plan Inpatient status as patient p/w Afib with RVR, rate >150 and will require close inpatient treatment and hemodynamic monitoring. Currently on IV amiodarone drip. Pt with rate controlled but acute NSTEMI, Medically necessary treatment will span 2 midnights
[2024-08-15 12:48] LABS: Troponin I High Sensitivity 89.3 pg/mL (4.0-51.3)
[2024-08-15] MEDS: CEFTRIAXONE 1,000 MG in 0.9 % SODIUM CHLORIDE 50 ML 100 MG IV (15:08)
[2024-08-15] MEDS: MAGNESIUM OXIDE 400 MG TABLET PO ×2 (15:10→21:03)
[2024-08-15] MEDS: WARFARIN SODIUM 5 MG TABLET 10 MG PO (17:12)
[2024-08-16] VITALS (78 sets, daily range): BP systolic 121–165; BP diastolic 73–87; PULSE 50–80; TEMP 36.6–36.7; O2SAT 96–98
[2024-08-16] MEDS: OMEPRAZOLE 40 MG CAPSULE.DR PO (05:05)
[2024-08-16 05:26] LABS: Basophils Absolute Auto 0.1 10^3/uL (0.0-0.1); Basophils Percent Auto 0.8 % (0.2-2.0); Eosinophils Absolute Auto 0.2 10^3/uL (0.0-0.7); Eosinophils Percent Auto 3.2 % (0.9-7.0); Hematocrit 40.3 % (36.0-48.0); Hemoglobin 13.1 g/dL (12.0-16.0); Immature Granulocytes Abs Auto 0.01 10^3/uL (0.00-0.03); Immature Granulocytes Pct Auto 0.2 % (0.0-0.5); Lymphocytes Absolute Auto 1.4 10^3/uL (1.2-3.8); Lymphocytes Percent Auto 22.6 % (20.5-60.0); Mean Corpuscular HGB Conc 32.5 g/dL (29.9-35.2); Mean Corpuscular Volume 89.2 fL (81.0-99.0); Mean Platelet Volume 10.6 fL (9.5-13.5); Monocytes Absolute Auto 0.9 10^3/uL (0.3-0.8); Monocytes Percent Auto 14.3 % (1.7-12.0); Neutrophils Absolute Auto 3.7 10^3/uL (1.4-6.5); Neutrophils Percent Auto 58.9 % (43.0-75.0); Platelet Count 189 10^3/uL (150-450); Red Blood Count 4.52 10^6/uL (4.20-5.40); Red Cell Distribution Width 15.6 % (11.0-15.0); White Blood Count 6.3 10^3/uL (4.0-11.0)
[2024-08-16 05:38] LABS: INR 0.96; Prothrombin Time 10.2 sec (9.0-11.6)
[2024-08-16 05:45] LABS: Alanine Aminotransferase 26 U/L (14-59); Albumin Globulin Ratio 0.9; Albumin Level 3.1 g/dL (3.4-5.0); Alkaline Phosphatase 99 U/L (46-116); Anion Gap 15.2; Aspartate Amino Transferase 33 U/L (15-37); Bilirubin Total 0.7 mg/dL (0.2-1.0); Calcium 9.3 mg/dL (8.5-10.1); Carbon Dioxide 24.2 mmol/L (21.0-32.0); Chloride 105 mmol/L (98-107); Estimated GFR (African America 47 (>=60 mL/min/1.73m^2); Estimated GFR (Non-African Ame 39 (>=60 mL/min/1.73m^2); Globulin 3.4 g/dL; Glucose 112 mg/dL (74-106); Potassium 4.4 mmol/L (3.5-5.1); Sodium 140 mmol/L (136-145); Total Protein 6.5 g/dL (6.4-8.2)
[2024-08-16] MEDS: ENOXAPARIN SODIUM 60 MG/0.6 ML SYRINGE SUBQ ×2 (06:19→15:48)
[2024-08-16 07:15] LABS: Troponin I High Sensitivity 52.5 pg/mL (4.0-51.3)
--- NOTE | 2024-08-16 08:12 | P.PN_ITS ---
Progress Note: Subjective Subjective Interval history: Significant sinus bradycardia on telemetry overnight, beta-blockers were held, still feels better this morning, Exam Constitutional Vital Signs, click to edit/add: Last Vital Signs Temp 98.1 F 08/16/24 05:12 Pulse 62 08/16/24 06:08 Resp 16 08/16/24 04:34 BP 145/75 H 08/16/24 03:24 Pulse Ox 96 08/16/24 05:12 O2 Del Method Room Air 08/16/24 05:12 Documenting provider has reviewed patient's vital signs: yes Common normals: no apparent distress Chest Common normals: inspection of chest normal and palpation of chest normal Respiratory Common normals: normal respiratory effort, no retractions and clear to auscultation bilaterally Cardio Common normals: regular rate and regular rhythm Rate: regular rate Rhythm: regular rhythm Extremity Common normals: normal to inspection Progress Note: Objective Labs Labs: Short CBC 08/16/24 Range/Units 05:14 WBC 6.3 (4.0-11.0) 10^3/uL Hgb 13.1 (12.0-16.0) g/dL Hct 40.3 (36.0-48.0) % Plt Count 189 (150-450) 10^3/uL BMP 08/16/24 05:14 Sodium 140 Potassium 4.4 Chloride 105 Carbon Dioxide 24.2 BUN 20.0 H Creatinine 1.33 H Glucose 112 H Calcium 9.3 Liver Function 08/16/24 Range/Units 05:14 Total Bilirubin 0.7 (0.2-1.0) mg/dL AST 33 (15-37) U/L ALT 26 (14-59) U/L Alkaline Phosphatase 99 (46-116) U/L Albumin 3.1 L (3.4-5.0) g/dL Progress Note: A&P Assessment and Plan (1) Atrial fibrillation with rapid ventricular response: (2) (HFpEF) heart failure with preserved ejection fraction: Qualifiers: Heart failure chronicity: chronic Qualified Code(s): I50.32 - Chronic diastolic (congestive) heart failure (3) HTN (hypertension): Qualifiers: Hypertension type: primary hypertension Qualified Code(s): I10 - Essential (primary) hypertension (4) CAD (coronary artery disease): Qualifiers: Associated angina: without angina Coronary Disease-Associated Artery/Lesion type: [place] artery [place] vs. transplanted heart: [place] heart Qualified Code(s): I25.10 - Atherosclerotic heart disease of [place] coronary artery without angina pectoris (5) HLD (hyperlipidemia): Qualifiers: Hyperlipidemia type: unspecified Qualified Code(s): E78.5 - Hyperlipidemia, unspecified (6) Hypothyroidism: Qualifiers: Hypothyroidism type: unspecified Qualified Code(s): E03.9 - Hypothyroidism, unspecified (7) CKD stage 3a, GFR 45-59 ml/min: Plan Admission findings: Tachycardia due to a-fib rvr, pt has a history of that, dyspnea, uncontrolled hypertension , hypomagnesemia Atrial fibrillation with rapid ventricular response: hypotension and ta with amiodarone - stoped that - adjted doses of bblocker this am - 25 bid wansnt enough- INR still1 so needs to stay of IV lovenox, and cont to adjust bp - heart rate meds till stable - possible tomorrow Chronic (HFpEF) heart failure with preserved ejection fraction: BNP normal--check an echocardiogram Acute NSTEMI type II - Elevated troponin this am, second is trending down and is likely rate dependent ischemia-check echocardiogram HTN (hypertension): Uncontrolled on admission, Increasing metoprolol fo rate control of the above-stable with medications CAD (coronary artery disease): No chest pain, See above, HLD (hyperlipidemia): Continue with current medications Hypothyroidism: Maintain current medications CKD stage 3a, GFR 45-59 ml/min: daily labs Depression - cont with home medications GERD - Cont with medications Plan Inpatient status as patient p/w Afib with RVR, rate >150 and will require close inpatient treatment and hemodynamic monitoring. Currently on IV amiodarone drip. Pt with rate controlled but acute NSTEMI, Medically necessary treatment will span 2 midnights
--- NOTE | 2024-08-16 08:23 | CM.NOTE ---
Important Message From Medicare discussed with pt, pt verbalizes understanding and signs paper. Original given to pt and copy placed on pt's chart.
--- NOTE | 2024-08-16 09:19 | CA_ITS ---
Patient Name: SON WILEY MR#: [id number] : 1945 Exam Date: 08/16/2024 Ordering Doctor: DR PAT NEWELL . ECHOCARDIOGRAM REPORT PROCEDURE: CA ECHO DOPPLER COMPLETE INDICATIONS: afib, elevated trop COMPARISON: None. DESCRIPTION: COMPLETE ECHOCARDIOGRAM Real-time transthoracic echocardiography with 2D, M-mode, spectral and color flow Doppler performed. QUALITY: Technical quality was good. LEFT VENTRICLE: Normal chamber size. Moderate concentric left ventricular hypertrophy. Global left ventricular systolic function is normal. Calculated left ventricular ejection fraction is 65%. LV EF: DIASTOLIC: Grade II diastolic dysfunction. ATRIAL SEPTUM: Appears intact LEFT ATRIUM: Severe dilatation. RIGHT ATRIUM: Mild dilatation. RIGHT VENTRICLE: Normal chamber size. Normal right ventricular systolic function. TRICUSPID VALVE: Normal mobility and thickness. No stenosis with mild regurgitation. Mild pulmonary hypertension.RVSP 43mmHg MITRAL VALVE: Normal mobility and thickness. No evidence of mitral valve stenosis. There is no mitral annular calcification. Moderate to severe mitral regurgitation. AORTIC VALVE: Normal trileaflet appearance. No visible sclerosis. Normal leaflet mobility. No evidence of aortic valve stenosis. Mild aortic regurgitation. AORTIC ROOT: Normal diameter and appearance. PULMONIC VALVE: Normal thickness and mobility. No stenosis. Trivial regurgitation. PERICARDIUM: No evidence of pericardial effusion. IVC: Collapes with inspirations. Normal size. PLEURA: CONCLUSION: Moderate concentric left ventricular hypertrophy Normal left ventricle systolic function without wall motion abnormalities, ejection fraction 65% Grade 2 left ventricle diastolic dysfunction Normal right ventricle size and systolic function Severely dilated left atrium and mildly dilated right atrium Moderate to severe mitral regurgitation Mild aortic insufficiency Mild tricuspid rotation Mild pulmonary hypertension, RVSP 43 mmHg Adult Echocardiography Procedure Report Left Ventricle LVEDD (3.7 - 5.6 cm): 4.55 cm LVESD (2.2 - 4.0 cm): 2.99 cm LVIVS thickness (0.6 - 1.2 cm): 1.27 cm LVPW thickness (0.5 - 1.0 cm): 1.31 cm e': 0.07 m/s E - e': 18.08 LVOT Max Gradient: 6.49 mm[Hg] LVOT Area (cm2): 1.27 m/s Peak Velocity (LVOT): 1.27 m/s Mean Velocity (LVOT): 0.96 m/s LVOT Diameter 1.85 cm Left Ventricular Ejection Fraction: 65.68 % Left Atrium LA Volume Index (2D A2C): 60.30 ml/m2 Left Atrium Systolic Dimension: 4.40 cm Mitral Valve MV E to A Ratio: 1.53 MV Max Gradient: MV Mean Gradient: Mitral Valve A-Wave Peak Velocity: 0.84 m/s Mitral Valve E-Wave Peak Velocity: 1.28 m/s Cardiovascular Orifice Area: Right Ventricle RV Internal Diastolic Dimension: 3.84 cm Aorta AO Root Diam: 3.01 cm Ascending Ao Diam: 3.36 cm Aortic Valve AoV Area (Peak [place]): 2.47 cm2, 2.47 cm2 AoV Area (VTI): 2.72 cm2, 2.72 cm2 Deceleration [place]: 2.27 m/s2 Pressure Half-Time: 493.96 ms Peak Velocity(Antegrade Flow): 1.38 m/s Peak Gradient(Antegrade Flow): 7.63 mm[Hg] Mean Velocity(Antegrade Flow): 0.93 m/s Mean Gradient(Antegrade Flow): 4.03 mm[Hg] Velocity Time Integral: 30.83 cm Tricuspid Valve Peak Velocity (Regurgitant Flow): 2.71 m/s, 2.95 m/s, 3.14 m/s Peak Velocity: Pulmonic Valve Mean Gradient: 3.63 mm[Hg], 2.36 mm[Hg] Mean Velocity: 0.90 m/s, 0.73 m/s Peak Velocity: 1.16 m/s Peak Gradient: 7.06 mm[Hg], 3.87 mm[Hg] Right Atrium Right Atrium Systolic Pressure: 61.90 ml, 61.90 ml Dictated by: Alanna Noguera MD on 08/16/2024 at 18:16 Approved by: Alanna Noguera MD on 08/16/2024 at 18:27
[2024-08-16] MEDS: LOSARTAN POTASSIUM 50 MG TABLET 100 MG PO (09:54)
[2024-08-16] MEDS: MAGNESIUM OXIDE 400 MG TABLET PO ×2 (09:54→21:00)
[2024-08-16] MEDS: METOPROLOL TARTRATE 25 MG TABLET 37.5 MG PO (09:54)
[2024-08-16] MEDS: FUROSEMIDE 20 MG TABLET PO (09:54)
[2024-08-16] MEDS: LIOTHYRONINE SODIUM 5 MCG TABLET PO (09:54)
[2024-08-16] MEDS: ESCITALOPRAM 10 MG TABLET PO (09:54)
[2024-08-16] MEDS: VITS A,C,E/LUTEIN/MINERALS 1 TABLET 1 TAB PO (09:54)
[2024-08-16] MEDS: CLOPIDOGREL BISULFATE 75 MG TABLET PO (09:55)
[2024-08-16] MEDS: HYDRALAZINE HCL 25 MG TABLET PO ×2 (09:55→21:00)
[2024-08-16] MEDS: ISOSORBIDE MONONITRATE 30 MG TAB.ER.24H PO (09:55)
--- NOTE | 2024-08-16 13:06 | SWNOTE1 ---
SW reviewed therapy note and no recommendations at this time, plan is for pt to return home.
[2024-08-16] MEDS: CEFTRIAXONE 1,000 MG in 0.9 % SODIUM CHLORIDE 50 ML 100 MG IV (15:48)
[2024-08-16] MEDS: WARFARIN SODIUM 5 MG TABLET 10 MG PO (17:40)
[2024-08-16] MEDS: ATORVASTATIN CALCIUM 40 MG TABLET PO (21:00)
[2024-08-16] MEDS: TEMAZEPAM 15 MG CAPSULE PO (21:02)
--- NOTE | 2024-08-16 22:33 | PC.NURSE ---
2100 Held patient's ordered Metoprolol dose due to HR 50-52 with activity and with rest.
[2024-08-17] VITALS (11 sets, daily range): BP systolic 142–151; BP diastolic 76–80; PULSE 50–60; TEMP 36.6–36.8; O2SAT 96–97
[2024-08-17] MEDS: ENOXAPARIN SODIUM 60 MG/0.6 ML SYRINGE SUBQ (05:26)
[2024-08-17] MEDS: OMEPRAZOLE 40 MG CAPSULE.DR PO (05:27)
[2024-08-17 05:28] LABS: Basophils Percent Auto 0.7 % (0.2-2.0); Eosinophils Absolute Auto 0.3 10^3/uL (0.0-0.7); Eosinophils Percent Auto 4.5 % (0.9-7.0); Hematocrit 41.1 % (36.0-48.0); Hemoglobin 13.5 g/dL (12.0-16.0); Immature Granulocytes Abs Auto 0.01 10^3/uL (0.00-0.03); Immature Granulocytes Pct Auto 0.2 % (0.0-0.5); Lymphocytes Absolute Auto 1.9 10^3/uL (1.2-3.8); Lymphocytes Percent Auto 33.9 % (20.5-60.0); Mean Corpuscular HGB Conc 32.8 g/dL (29.9-35.2); Mean Corpuscular Volume 88.4 fL (81.0-99.0); Monocytes Absolute Auto 0.7 10^3/uL (0.3-0.8); Monocytes Percent Auto 11.7 % (1.7-12.0); Neutrophils Absolute Auto 2.7 10^3/uL (1.4-6.5); Platelet Count 204 10^3/uL (150-450); Red Blood Count 4.65 10^6/uL (4.20-5.40); Red Cell Distribution Width 15.3 % (11.0-15.0); White Blood Count 5.5 10^3/uL (4.0-11.0)
[2024-08-17 05:42] LABS: INR 1.14; Prothrombin Time 11.9 sec (9.0-11.6)
[2024-08-17 05:52] LABS: Alanine Aminotransferase 26 U/L (14-59); Albumin Globulin Ratio 0.9; Albumin Level 3.1 g/dL (3.4-5.0); Alkaline Phosphatase 101 U/L (46-116); Anion Gap 12.3; Aspartate Amino Transferase 23 U/L (15-37); BUN Creatinine Ratio 16.1; Bilirubin Total 0.5 mg/dL (0.2-1.0); Calcium 9.6 mg/dL (8.5-10.1); Chloride 105 mmol/L (98-107); Estimated GFR (African America 45 (>=60 mL/min/1.73m^2); Estimated GFR (Non-African Ame 37 (>=60 mL/min/1.73m^2); Globulin 3.5 g/dL; Glucose 94 mg/dL (74-106); Potassium 4.3 mmol/L (3.5-5.1); Sodium 141 mmol/L (136-145); Total Protein 6.6 g/dL (6.4-8.2); Troponin I High Sensitivity 35.5 pg/mL (4.0-51.3)
--- NOTE | 2024-08-17 06:41 | P.DS_ITS ---
DS: Providers Provider Date of admission: 08/14/24 17:25 Primary care physician: Demarco Graves MD Consults: 08/14/24 15:56 Physical Therapy Eval and Treat Routine Reason for consultation: Ambulatory dysfunction/weakness DS: Diagnosis Discharge Diagnosis (1) Atrial fibrillation with rapid ventricular response: (2) (HFpEF) heart failure with preserved ejection fraction: Qualifiers: Heart failure chronicity: chronic Qualified Code(s): I50.32 - Chronic diastolic (congestive) heart failure (3) HTN (hypertension): Qualifiers: Hypertension type: primary hypertension Qualified Code(s): I10 - Essential (primary) hypertension (4) CAD (coronary artery disease): Qualifiers: Associated angina: without angina Coronary Disease-Associated Artery/Lesion type: [place] artery [place] vs. transplanted heart: [place] heart Qualified Code(s): I25.10 - Atherosclerotic heart disease of [place] coronary artery without angina pectoris (5) HLD (hyperlipidemia): Qualifiers: Hyperlipidemia type: unspecified Qualified Code(s): E78.5 - Hyper lipidemia, unspecified (6) Hypothyroidism: Qualifiers: Hypothyroidism type: unspecified Qualified Code(s): E03.9 - Hypothyroidism, unspecified (7) CKD stage 3a, GFR 45-59 ml/min: Plan Admission findings: Tachycardia due to a-fib rvr, pt has a history of that, dyspnea, uncontrolled hypertension , hypomagnesemia Atrial fibrillation with rapid ventricular response: Currently converted, starting Coumadin yesterday Chronic (HFpEF) heart failure with preserved ejection fraction: BNP normal--follow-up with cardiology Acute NSTEMI type II -troponin is returned to normal, follow-up with cardiology HTN (hypertension): Adjust medications. Home increasing Imdur CAD (coronary artery disease): No chest pain, See above, Grade II diastolic dysfunction with moderate LVH - follow with cardiology Mitral [id number]-[id number] with cardiology HLD (hyperlipidemia): Continue with current medications Hypothyroidism: Maintain current medications CKD stage 3a, GFR 45-59 ml/min: daily labs Depression - cont with home medications GERD - Cont with medications Plan Inpatient status as patient p/w Afib with RVR, rate >150 and will require close inpatient treatment and hemodynamic monitoring. Currently on IV amiodarone drip. Pt with rate controlled but acute NSTEMI, Medically necessary treatment will span 2 midnights ? DS: Summary Hospital Course Hospital Course: Patient presented to the emergency room with increasing shortness of breath and palpitations, found to have atrial fibrillation with rapid ventricular sponsor. She has had this in the past. Unable to tolerate Cardizem was placed on amiodarone, patient converted, has had significant bradycardia and hypotension on the amiodarone that was discontinued, beta-blockers were increased but still with the bradycardia, started on Coumadin yesterday's been unable to tolerate the Eliquis in the past. She is The additional day converting to Coumadin. Her INR is not therapeutic, the plan for today if stable is to place a Holter monitor, Lovenox prior to discharge, and 10 mg of Coumadin today and follow-up with Coumadin clinic. Follow-up with cardiology within the next week or so and see me either later this week or early next Time Spent with Patient Time attestation: Total time spent providing and/or coordinating discharge services: Exam Constitutional Vital Signs, click to edit/add: Last Vital Signs Temp 98.2 F 08/17/24 05:07 Pulse 50 L 08/17/24 06:00 Resp 9 L 08/17/24 05:07 BP 142/80 H 08/17/24 05:07 Pulse Ox 96 08/17/24 05:07 O2 Del Method Room Air 08/17/24 05:02 Documenting provider has reviewed patient's vital signs: yes Common normals: no apparent distress Chest Common normals: inspection of chest normal and palpation of chest normal Respiratory Common normals: normal respiratory effort, no retractions and clear to auscultation bilaterally Auscultation: no rales and no rhonchi Cardio Common normals: regular rhythm; irregular rate Rate: bradycardic Rhythm: regular rhythm Extremity Common normals: normal to inspection DS: Data Data Completed and Pending Labs on day of discharge: Labs from last 24 hours 08/17/24 08/16/24 05:06 05:14 WBC 5.5 RBC 4.65 Hgb 13.5 Hct 41.1 MCV 88.4 MCH 29.0 MCHC 32.8 RDW 15.3 H Plt Count 204 MPV 11.0 Neut % (Auto) 49.0 Lymph % (Auto) 33.9 [place] % (Auto) 11.7 Eos % (Auto) 4.5 Baso % (Auto) 0.7 Neut # (Auto) 2.7 Lymph # (Auto) 1.9 [place] # (Auto) 0.7 Eos # (Auto) 0.3 Baso # (Auto) 0.0 Abs Immat Gran (auto) 0.01 Imm/Tot Granulo (auto) 0.2 PT 11.9 H INR 1.14 Sodium 141 Potassium 4.3 Chloride 105 Carbon Dioxide 28.0 Anion Gap 12.3 BUN 22.0 H Creatinine 1.37 H Est GFR ( Amer) 45 L Est GFR (Non-Af Amer) 37 L BUN/Creatinine Ratio 16.1 Glucose 94 Calcium 9.6 Total Bilirubin 0.5 AST 23 ALT 26 Alkaline Phosphatase 101 Troponin I High Sens 35.5 52.5 H* Total Protein 6.6 Albumin 3.1 L Globulin 3.5 Albumin/Globulin Ratio 0.9 Discharge Plan Discharge Disposition: Home, Self-Care Discharge Medications: New metoprolol succinate 25 mg tablet extended release 24 hr 25 mg PO DAILY Qty: 30 11RF escitalopram oxalate [Lexapro] 20 mg tablet 20 mg PO DAILY Qty: 30 11RF warfarin 5 mg tablet 5 mg PO DAILY Qty: 30 11RF isosorbide mononitrate 60 mg tablet extended release 24 hr 30 mg PO QAM Qty: 30 11RF Continued liothyronine 5 mcg Tablet 5 mcg PO DAILY albuterol sulfate 90 mcg/actuation HFA aerosol inhaler 2 inh inhalation Q4H PRN (Reason: shortness of breath or wheezing) Qty: 8.5 0RF clopidogrel 75 mg tablet 75 mg PO DAILY pantoprazole 40 mg tablet,delayed release (DR/EC) 40 mg PO DAILY loperamide [Anti-Diarrheal (loperamide)] 2 mg capsule 2 mg PO DAILY atorvastatin 40 mg tablet 40 mg PO DAILY Vision Tablet 1 tab PO DAILY hydralazine 25 mg tablet 25 mg PO BID Discontinued escitalopram oxalate [Lexapro] 10 mg tablet 10 mg PO DAILY isosorbide mononitrate 30 mg Tablet Extended Release 24 Hr 30 mg PO Q24H Qty: 30 11RF Print Language: Georgian Patient Instructions: Warfarin (By mouth), A-fib (Atrial Fibrillation) (DC), Blood Thinners (DC) Forms: Portal Instructions
[2024-08-17] MEDS: VITS A,C,E/LUTEIN/MINERALS 1 TABLET 1 TAB PO (08:14)
[2024-08-17] MEDS: HYDRALAZINE HCL 25 MG TABLET PO (08:14)
[2024-08-17] MEDS: CLOPIDOGREL BISULFATE 75 MG TABLET PO (08:14)
[2024-08-17] MEDS: ESCITALOPRAM 10 MG TABLET PO (08:14)
[2024-08-17] MEDS: LIOTHYRONINE SODIUM 5 MCG TABLET PO (08:15)
[2024-08-17] MEDS: FUROSEMIDE 20 MG TABLET PO (08:15)
[2024-08-17] MEDS: MAGNESIUM OXIDE 400 MG TABLET PO (08:15)
[2024-08-17] MEDS: METOPROLOL TARTRATE 25 MG TABLET 37.5 MG PO (08:15)
[2024-08-17] MEDS: LOSARTAN POTASSIUM 50 MG TABLET 100 MG PO (08:15)
[2024-08-17] MEDS: ISOSORBIDE MONONITRATE 30 MG TAB.ER.24H 60 MG PO (08:22)
--- NOTE | 2024-08-19 15:09 | CM.DCFOLLOWU ---
Person spoke with: Cece How are you feeling? tired but I think my body is adjusting to the new medications. I see Dr. Graves next week How is your pain? No pain Did you understand your discharge instructions? Yes Do you have any questions about your discharge instructions? No Were you given any prescriptions at discharge? Yes Were you able to get your prescriptions filled? Yes Do you understand how to take your medications as ordered? Yes Do you have any questions about your follow up appointment and do you plan to keep your follow up appointment? No questions and yes I plan to go, pt does also have an appointment set for the Coumadin [facility] and will f/u Is there anything else that you would like to discuss? No Questions/Comments/Concerns/Other:
== END 2024-08-17 09:27 | disposition home or self-care (01) | DRG 281 ==
LOC: ER 15:59 → ICU 08-16 13:50
PROVIDERS: Internal Medicine; Admitting Provider Family Medicine; Emergency Provider Emergency Medicine; PCP Family Medicine; Visit Provider Family Medicine
DX: I48.91 Unspecified atrial fibrillation (principal); I13.0 Hypertensive heart and chronic kidney disease with heart failure and stage 1 through stage 4 chronic kidney disease, or unspecified chronic kidney disease; I21.A1 Myocardial infarction type 2; I50.32 Chronic diastolic (congestive) heart failure; E03.9 Hypothyroidism, unspecified; E78.5 Hyperlipidemia, unspecified; E83.42 Hypomagnesemia; I25.10 Atherosclerotic heart disease of native coronary artery without angina pectoris; F32.A Depression, unspecified; K21.9 Gastro-esophageal reflux disease without esophagitis; N18.31 Chronic kidney disease, stage 3a; Z79.02 Long term (current) use of antithrombotics/antiplatelets; Z79.890 Hormone replacement therapy; Z79.899 Other long term (current) drug therapy; Z88.5 Allergy status to narcotic agent; Z88.8 Allergy status to other drugs, medicaments and biological substances
CPT/HCPCS: 36415; 71045; 80053; 81003; 83605; 83735; 83880; 84436; 84443; 84484; 85025; 85610; 93005; 93246; 93306; 94761; 96365; 96366; 96368; 96372; 96376; 99285; J0283; J0696; J1650; J3475

== ENCOUNTER 2024-08-23 12:33 | Emergency (ER) | payer MEDICARE, OTHER, SELFPAY ==
[2024-08-23] VITALS (9 sets, daily range): BP systolic 164–201; BP diastolic 72–82; PULSE 61–68; TEMP 36.9; O2SAT 95–98; BMI 30.6
--- NOTE | 2024-08-23 13:05 | XR_ITS ---
The [address] [address] Patient Name: SON WILEY MRN: [id number] date: 1945 Sex: F Assigned Patient Location: ER Current Patient Location: ER Accession/Order Number: [id number] Exam Date: 08/23/2024 13:22 Report Date: 08/23/2024 13:34 At the request of: ISIDRA PAUL Procedure: XR chest 1V EXAM: XR chest 1V HISTORY: . Chest pain . COMPARISON: None. TECHNIQUE: Single view of the chest FINDINGS: Heart and vascularity are unremarkable. Lungs are free of focal infiltrates. EKG leads overlie the chest. XR/XR chest 1V IMPRESSION: No acute heart or lung disease identified. Electronically authenticated by: ERROL CHIU Date: 08/23/2024 13:34
--- NOTE | 2024-08-23 13:05 | ECG_ITS ---
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
--- NOTE | 2024-08-23 13:07 | ED.CHESTPAI1 ---
HPI - Chest Pain General Chief Complaint: Chest Pain Stated Complaint: CHEST PAINS Time Seen by Provider: 08/23/24 12:53 Source: patient Mode of arrival: walk-in History of Present Illness HPI narrative: 79-year-old female presented to the emergency department for chest pain. It has been there since 7:00 this morning. She points to the midline lower sternal area to indicate area of pain and it is sharp. She has been coughing a great deal and was recently admitted to this hospital. At that time she had atrial fibrillation and she is currently on Coumadin. She has several cardiac stents. Related Data Home Medications ?Medication ?Instructions ?Recorded ?Confirmed atorvastatin 40 mg tablet 40 mg PO DAILY 06/19/23 08/14/24 loperamide 2 mg capsule 2 mg PO DAILY 06/19/23 08/14/24 (Anti-Diarrheal (loperamide)) pantoprazole 40 mg tablet,delayed 40 mg PO DAILY 06/19/23 08/14/24 release vitamin A-vitamin C-vit E-min 1 tab PO DAILY 06/19/23 08/14/24 tablet (Vision tablet) hydralazine 25 mg tablet 25 mg PO BID 10/03/23 08/14/24 liothyronine 5 mcg tablet 5 mcg PO DAILY 10/18/23 08/14/24 clopidogrel 75 mg tablet 75 mg PO DAILY 08/14/24 08/14/24 Previous Rx's ?Medication ?Instructions ?Recorded albuterol sulfate 90 mcg/actuation 2 inh inhalation Q4H PRN shortness 12/29/23 aerosol inhaler of breath or wheezing #8.5 grams escitalopram oxalate 20 mg tablet 20 mg PO DAILY #30 tabs 08/17/24 (Lexapro) isosorbide mononitrate 60 mg 30 mg (1/2 x 60 mg) PO QAM #30 tabs 08/17/24 tablet,extended release 24 hr metoprolol succinate 25 mg 25 mg PO DAILY #30 tabs 08/17/24 tablet,extended release 24 hr warfarin 5 mg tablet 5 mg PO DAILY #30 tabs 08/17/24 Allergies Allergy/AdvReac Type Severity Reaction Status Date / Time SERINA Inhibitors Allergy Severe Hives Verified 08/23/24 12:51 diltiazem Allergy Severe shortness Verified 08/23/24 12:51 of breath gabapentin (From Neurontin) Allergy Severe Confusion Verified 08/23/24 12:51 amlodipine AdvReac Severe swelling Verified 08/23/24 12:51 morphine AdvReac Severe Nausea Verified 08/23/24 12:51 Review of Systems ROS Narrative A ten point review of systems is negative except as noted above. [facility] Medical History (Updated 08/23/24 @ 16:03 by Victoriano Christiansen MD) Atrial fibrillation with rapid ventricular response ?I48.91 - Unspecified atrial fibrillation (ICD-10) (HFpEF) heart failure with preserved ejection fraction ?I50.30 - Unspecified diastolic (congestive) heart failure (ICD-10) CKD stage 3a, GFR 45-59 ml/min ?N18.31 - Chronic kidney disease, stage 3a (ICD-10) Hypothyroidism ?E03.9 - Hypothyroidism, unspecified (ICD-10) HLD (hyperlipidemia) ?E78.5 - Hyperlipidemia, unspecified (ICD-10) CAD (coronary artery disease) ?I25.10 - Atherosclerotic heart disease of [place] coronary artery without angina pectoris (ICD-10) Raynauds syndrome ?I73.00 - Raynaud's syndrome without gangrene (ICD-10) IBS (irritable bowel syndrome) ?K58.9 - Irritable bowel syndrome without diarrhea (ICD-10) Atrial fibrillation with rapid ventricular response ?I48.91 - Unspecified atrial fibrillation (ICD-10) Atrial fibrillation, new onset ?I48.91 - Unspecified atrial fibrillation (ICD-10) HTN (hypertension) ?I10 - Essential (primary) hypertension (ICD-10) Mitral valve insufficiency ?I34.0 - Nonrheumatic mitral (valve) insufficiency (ICD-10) Dyspnea ?R06.00 - Dyspnea, unspecified (ICD-10) Surgical History History of back surgery ?Z98.890 - Other specified postprocedural states (ICD-10) History of total right knee replacement ?Z96.651 - Presence of right artificial knee joint (ICD-10) History of knee replacement procedure of left knee ?Z96.652 - Presence of left artificial knee joint (ICD-10) Family History Other Family history of cancer Family history of hypertension Family history of myocardial infarction Social History Within the past year, how often did you have a drink containing alcohol: never Within the past year, how many standard drinks containing alcohol did you have on a typical day: 1 or 2 Within the past year, how often did you have six or more drinks on one occasion: never Total score: 0 Score interpretation: A score less than 3 is consistent with normal alcohol consumption. Smoking status: Never smoker Non-prescribed substance use: denies use Previous occupational history: retired Highest level of school completed/degree received: high school graduate Are you now , , , , never or living with a partner: In a typical week, how many times do you talk on the telephone with family, friends, or neighbors: 3 or more times per week How often do you get together with friends or relatives: 3 or more times per week How often do you attend pentecostalism or yazdanism services: 4 or more times per year Little interest or pleasure in doing things: several days Feeling down, depressed, or hopeless: not at all Feel stressed/tense/nervous/anxious/difficulty sleeping: to some extent Life stressor details: back pain Do you think of yourself as: straight/heterosexual Gender Identity: female Exam Narrative Exam Narrative: Nurses note and vital signs reviewed and patient is not hypoxic. General: The patient appears in no apparent distress. Patient is resting comfortably on cart. Skin: Warm, dry, no pallor noted. There is no rash noted. Head: Normocephalic, atraumatic Ears, Nose, Mouth, and Throat: oral mucosa is moist. Nares patent. Cardiovascular: Regular Rate and Rhythm Respiratory: Patient is in no distress, no accessory muscle use, lungs are clear to auscultation, no wheezing, rales or rhonchi Back: non-tender GI: Soft and nontender Musculoskeletal: The patient has no evidence of calf tenderness, no pitting edema, symmetrical pulses noted bilaterally Neurological: A&O, normal speech Psychiatric: Cooperative Constitutional Vital Signs, click to edit/add: Last Vital Signs Temp 98.4 F 08/23/24 12:52 Pulse 63 08/23/24 14:10 Resp 15 08/23/24 14:10 BP 175/74 H 08/23/24 14:00 Pulse Ox 96 08/23/24 14:10 O2 Del Method Room Air 08/23/24 12:52 Course Vital Signs Vital signs: Vital Signs Temperature 98.4 F 08/23/24 12:52 Pulse Rate 68 08/23/24 12:52 Respiratory Rate 18 08/23/24 12:52 Blood Pressure 201/82 H 08/23/24 12:52 Pulse Oximetry 97 08/23/24 12:52 Oxygen Delivery Method Room Air 08/23/24 12:52 Temperature 98.4 F 08/23/24 12:52 Pulse Rate 63 08/23/24 14:10 Respiratory Rate 15 08/23/24 14:10 Blood Pressure 175/74 H 08/23/24 14:00 Pulse Oximetry 96 08/23/24 14:10 Oxygen Delivery Method Room Air 08/23/24 12:52 MDM - Chest Pain MDM Narrative Medical decision making narrative: The patient's workup is negative including 2 troponins. I suspect that this is chest wall pain from the coughing. Case discussed with Dr. Graves and she will see him in the next day or 2. She has an appointment with him already scheduled for 2 days from now. Treatment diagnosis and follow-up were discussed with the patient. Differential Diagnosis Differential diagnosis: Likely pneumothorax, unstable angina pectoris, atypical chest pain, st elevation myocardial infarction, costochondritis and chest pain Lab Data Attestation: I reviewed the patient's lab results. Labs: Lab Results 08/23/24 08/23/24 Range/Units 13:16 14:49 WBC 11.7 H (4.0-11.0) 10^3/uL RBC 4.58 (4.20-5.40) 10^6/uL Hgb 13.3 (12.0-16.0) g/dL Hct 41.0 (36.0-48.0) % MCV 89.5 (81.0-99.0) fL MCH 29.0 (26.7-34.0) pg MCHC 32.4 (29.9-35.2) g/dL RDW 15.1 H (11.0-15.0) % Plt Count 231 (150-450) 10^3/uL MPV 10.4 (9.5-13.5) fL Neut % (Auto) 77.4 H (43.0-75.0) % Lymph % (Auto) 10.6 L (20.5-60.0) % [place] % (Auto) 9.3 (1.7-12.0) % Eos % (Auto) 2.0 (0.9-7.0) % Baso % (Auto) 0.4 (0.2-2.0) % Neut # (Auto) 9.1 H (1.4-6.5) 10^3/uL Lymph # (Auto) 1.2 (1.2-3.8) 10^3/uL [place] # (Auto) 1.1 H (0.3-0.8) 10^3/uL Eos # (Auto) 0.2 (0.0-0.7) 10^3/uL Baso # (Auto) 0.1 (0.0-0.1) 10^3/uL Abs Immat Gran (auto) 0.04 H (0.00-0.03) 10^3/uL Imm/Tot Granulo (auto) 0.3 (0.0-0.5) % Sodium 139 (136-145) mmol/L Potassium 4.3 (3.5-5.1) mmol/L Chloride 103 (98-107) mmol/L Carbon Dioxide 26.1 (21.0-32.0) mmol/L Anion Gap 14.2 BUN 28.0 H (7.0-18.0) mg/dL Creatinine 1.37 H (0.55-1.02) mg/dL Est GFR ( Amer) 45 L (>=60 mL/min/1.73m^2) Est GFR (Non-Af Amer) 37 L (>=60 mL/min/1.73m^2) BUN/Creatinine Ratio 20.4 Glucose 111 H (74-106) mg/dL Calcium 9.5 (8.5-10.1) mg/dL Troponin I High Sens 6.8 5.1 (4.0-51.3) pg/mL Imaging Data Chest x-ray: Radiologist's impression: ITS Impressions Chest X-Ray 08/23/24 13:05 IMPRESSION: No acute heart or lung disease identified. Electronically authenticated by: ERROL CHIU Date: 08/23/2024 13:34 ECG Data Attestation: I personally reviewed and interpreted this ECG as follows: (EKG on my interpretation shows normal sinus rhythm with a rate of 65 and no acute change) Heart Score History: Slightly/Non-Suspicious ECG: Normal Age: >65 years Risk Factors: 1 or 2 Risk Factors Troponin: <Normal Limit Total Heart Score Recommendations & Risks:: 3 Discharge Plan Discharge Chief Complaint: Chest Pain Clinical Impression: Chest pain Patient Disposition: Home, Self-Care Time of Disposition Decision: 16:03 Condition: Good Mode of Transportation: Private Vehicle Prescriptions / Home Meds: No Action liothyronine 5 mcg Tablet 5 mcg PO DAILY albuterol sulfate 90 mcg/actuation HFA aerosol inhaler 2 inh inhalation Q4H PRN (Reason: shortness of breath or wheezing) Qty: 8.5 0RF clopidogrel 75 mg tablet 75 mg PO DAILY metoprolol succinate 25 mg tablet extended release 24 hr 25 mg PO DAILY Qty: 30 11RF escitalopram oxalate [Lexapro] 20 mg tablet 20 mg PO DAILY Qty: 30 11RF warfarin 5 mg tablet 5 mg PO DAILY Qty: 30 11RF isosorbide mononitrate 60 mg tablet extended release 24 hr 30 mg PO QAM Qty: 30 11RF pantoprazole 40 mg tablet,delayed release (DR/EC) 40 mg PO DAILY loperamide [Anti-Diarrheal (loperamide)] 2 mg capsule 2 mg PO DAILY atorvastatin 40 mg tablet 40 mg PO DAILY Vision Tablet 1 tab PO DAILY hydralazine 25 mg tablet 25 mg PO BID Print Language: Lao Instructions: Chest Pain (ED) Additional Instructions: See Dr. Graves at your appointment on Friday. Referrals: Demarco Graves MD [Primary Care Provider] - 1 week
[2024-08-23 13:31] LABS: Basophils Absolute Auto 0.1 10^3/uL (0.0-0.1); Basophils Percent Auto 0.4 % (0.2-2.0); Eosinophils Absolute Auto 0.2 10^3/uL (0.0-0.7); Hemoglobin 13.3 g/dL (12.0-16.0); Immature Granulocytes Abs Auto 0.04 10^3/uL (0.00-0.03); Immature Granulocytes Pct Auto 0.3 % (0.0-0.5); Lymphocytes Absolute Auto 1.2 10^3/uL (1.2-3.8); Lymphocytes Percent Auto 10.6 % (20.5-60.0); Mean Corpuscular HGB Conc 32.4 g/dL (29.9-35.2); Mean Corpuscular Volume 89.5 fL (81.0-99.0); Mean Platelet Volume 10.4 fL (9.5-13.5); Monocytes Absolute Auto 1.1 10^3/uL (0.3-0.8); Monocytes Percent Auto 9.3 % (1.7-12.0); Neutrophils Absolute Auto 9.1 10^3/uL (1.4-6.5); Neutrophils Percent Auto 77.4 % (43.0-75.0); Platelet Count 231 10^3/uL (150-450); Red Blood Count 4.58 10^6/uL (4.20-5.40); Red Cell Distribution Width 15.1 % (11.0-15.0); White Blood Count 11.7 10^3/uL (4.0-11.0)
[2024-08-23 13:40] LABS: Anion Gap 14.2; BUN Creatinine Ratio 20.4; Calcium 9.5 mg/dL (8.5-10.1); Carbon Dioxide 26.1 mmol/L (21.0-32.0); Chloride 103 mmol/L (98-107); Estimated GFR (African America 45 (>=60 mL/min/1.73m^2); Estimated GFR (Non-African Ame 37 (>=60 mL/min/1.73m^2); Glucose 111 mg/dL (74-106); Potassium 4.3 mmol/L (3.5-5.1); Sodium 139 mmol/L (136-145)
[2024-08-23 13:49] LABS: Troponin I High Sensitivity 6.8 pg/mL (4.0-51.3)
[2024-08-23 15:29] LABS: Troponin I High Sensitivity 5.1 pg/mL (4.0-51.3)
== END 2024-08-23 16:24 | disposition home or self-care (01) ==
PROVIDERS: Emergency Provider Emergency Medicine; PCP Family Medicine
DX: R07.9 Chest pain, unspecified (principal); I48.91 Unspecified atrial fibrillation; Z79.01 Long term (current) use of anticoagulants; Z95.5 Presence of coronary angioplasty implant and graft; Z96.651 Presence of right artificial knee joint; Z96.652 Presence of left artificial knee joint
CPT/HCPCS: 36415; 71045; 80048; 84484; 85025; 93005; 99285

== ENCOUNTER 2024-09-08 10:56 | Outpatient (RCR) | payer MEDICARE, OTHER, SELFPAY | END 2024-09-10 15:28 | disposition home or self-care (01) | LOC: MM 10:56 | PROVIDERS: PCP Family Medicine; Visit Provider Internal Medicine | DX: Z51.81 Encounter for therapeutic drug level monitoring (principal); Z79.01 Long term (current) use of anticoagulants; I48.91 Unspecified atrial fibrillation | CPT/HCPCS: 85610; G0463 ==

== ENCOUNTER 2024-09-13 02:21 | Outpatient (RCR) | payer MEDICARE, OTHER, SELFPAY | END 2024-10-08 13:15 | disposition home or self-care (01) | LOC: MM 02:21 | PROVIDERS: PCP Family Medicine; Visit Provider Internal Medicine | DX: Z51.81 Encounter for therapeutic drug level monitoring (principal); Z79.01 Long term (current) use of anticoagulants; I48.91 Unspecified atrial fibrillation | CPT/HCPCS: 85610; G0463 ==

== ENCOUNTER 2024-10-05 14:35 | Outpatient (OUT) | payer MEDICARE, OTHER, SELFPAY ==
--- NOTE | 2024-10-05 14:52 | XR_ITS ---
The [address] [address] Patient Name: SON WILEY MRN: [id number] date: 1945 Sex: F Assigned Patient Location: [facility] Current Patient Location: [facility] Accession/Order Number: [id number] Exam Date: 10/05/2024 15:40 Report Date: 10/05/2024 15:44 At the request of: PAT NEWELL MD Procedure: XR chest 2V PA AND LATERAL CHEST: CLINICAL HISTORY: Follow-up pleural effusion COMPARISON: Chest x-ray and abdominal CT 08/28/2024 . Chest x-ray 08/09/2023 There is no focal parenchymal consolidation or pneumothorax. The lateral costophrenic angles are clear. On the lateral view, the posterior costophrenic angles show slight blunting and a trace amount of residual pleural effusion is possible. The cardiac, hilar and mediastinal silhouettes are stable. There is no vascular congestion. The visualized bony structures are osteopenic. There is levoscoliotic curvature and minimal endplate spurring. There is partially imaged lumbar fusion hardware. XR/XR chest 2V IMPRESSION: TRACE AMOUNT OF RESIDUAL PLEURAL EFFUSION. NO OTHER ACUTE FINDINGS. Impression dictated by: Hope Stokes M.D.10/05/2024 3:44 PM Dictation Location: [place] [address] Electronically authenticated by: [id number] Y Date: 10/05/2024 15:44
== END 2024-10-05 14:36 | disposition home or self-care (01) ==
LOC: RAD 14:36
PROVIDERS: PCP Family Medicine; Visit Provider Family Medicine
DX: Z51.81 Encounter for therapeutic drug level monitoring (principal); Z79.01 Long term (current) use of anticoagulants; I48.91 Unspecified atrial fibrillation; J90 Pleural effusion, not elsewhere classified
CPT/HCPCS: 71046; 85610; G0463

== ENCOUNTER 2024-10-06 09:29 | Outpatient (OUT) | payer MEDICARE, OTHER, SELFPAY ==
--- OUTSIDE RECORDS SUMMARY | 2024-10-06 09:36 | XMS_ITS | CCD ---
Author Organization [facility] Care Team Providers Care Intranet Support Name Role Phone ASHLEY, JOEL H. Referring Unavailable HOY, DEMARCO M Primary Care Unavailable RICKI KWOK Referring Unavailable HOY, DEMARCO M Primary Care Unavailable ASHLEY, JOEL H. Attending Unavailable ASHLEY, JOEL H. Referring Unavailable HOY, DEMARCO M Primary Care Unavailable ASHLEY, JOEL H. Admitting Unavailable ASHLEY, JOEL H. Attending Unavailable ASHLEY, JOEL H. Referring Unavailable HOY, DEMARCO M Primary Care Unavailable ASHLEY, JOEL H. Attending Unavailable ASHLEY, JOEL H. Referring Unavailable HOY, DEMARCO M Primary Care Unavailable CHRISTIE REED Admitting Unavailable CHRISTIE REED Attending Unavailable HOY, DEMARCO M Primary Care Unavailable MJ COLON Consulting Unavailable ASHLEY, JOEL H. Consulting Unavailable CLARK SANDERS Consulting Unavailable ANGELICA HOLGUIN Consulting Unavailable HOY, DEMARCO Primary Care Unavailable UNKNOWN, PROVIDER Attending Unavailable UNKNOWN, PROVIDER Admitting Unavailable SELF, REFERRED Referring Unavailable [place] DEMARCO Primary Care Unavailable UNKNOWN, PROVIDER Attending Unavailable UNKNOWN, PROVIDER Admitting Unavailable SELF, REFERRED Referring Unavailable Demarco Newell MD Primary Care Provider Demarco Newell MD Primary Care Provider [phone] Demarco Newell MD Primary Care Provider [phone] MD Demarco Newell Primary Care Provider [phone] MD Demarco Newell Referring Provider [phone] Self, Referral Attending Provider Unavailable Demarco Newell MD Primary Care Provider OSIRIS ., DR STEWART Admitting Unavailable OSIRIS ., DR STEWART Attending Unavailable OSIRIS ., DR STEWART Primary Care Unavailable OSIRIS ., DR STEWART Consulting Unavailable MOUKATORO, DR ALONZO Admitting Unavailable MOUKARBEL, DR ALONZO [...] Care Unavailable MADELYN DICKSON Consulting Unavailable MD Demarco Newell Primary Care Provider [phone] MD Demarco Newell Referring Provider Self, Referral Attending Provider Unavailable EDWIN BLUNT Attending Unavailable DINORAH MONTES Attending Unavailable EDWIN BLUNT Referring Unavailable EDWIN BLUNT Attending Unavailable Gaetano Shaw MD Unavailable Satish ROCHA, [facility] Unavailable Demarco Newell MD Primary Care Provider [phone] Demarco Newell Primary Care Physician Jalen Flores Attending Unavailable Demarco Newell MD Primary Care Provider [phone] [facility] Unavailable PARRISH, JOEL Referring Unavailable HOY, DEMARCO M Primary Care Unavailable PARRISH, JOEL Referring Unavailable HOY, DEMARCO M Primary Care Unavailable HOY, DEMARCO M Primary Care Unavailable GILMA PATEL Attending Unavailable PARRISH, JOEL Referring Unavailable SONG TYLER Attending Unavailable HOY, DEMARCO M Primary Care Unavailable GAETANO SHAW Referring Unavailable HOY, DEMARCO M Primary Care Unavailable HOY, DEMARCO M Primary Care Unavailable PARRISH, JOEL Referring Unavailable EVA DOW Referring Unavailable HOY, DEMARCO M Primary Care Unavailable HARRISON ANDREWS Referring Unavailable HOY, DEMARCO M Primary Care Unavailable BECCA SILVERIO Referring Unavailable HOY, DEMARCO M Primary Care Unavailable LIANE BUCKLEY Attending Unavailabl e PARRISH, JOEL Admitting Unavailable HOY, DEMARCO M Primary Care Unavailable PARRISH, JOEL Referring Unavailable PARRISH, JOEL Referring Unavailable HOY, DEMARCO M Primary Care Unavailable PARRISH, JOEL Referring Unavailable HOY, DEMARCO M Primary Care Unavailable HOY, DEMARCO M Primary Care Unavailable ZRAIK, LATRELL Admitting Unavailable KENNEDY, LATRELL Attending Unavailable VASYL COVARRUBIAS Consulting Unavailable HOY, DEMARCO M Primary Care Unavailable HOY, DEMARCO M Primary Care Unavailable NEMR, GASAN Admitting Unavailable NEMR, GASAN Attending Unavailable MCKENZIE THAKKAR A Consulting Unavailable Demarco Newell MD Primary Care Provider [phone] MD Demarco Newell Primary Care Provider [phone] Rupert Bird Emergency Provider Unavaclara Covarrubias MD, Vasyl Aleman Unavailable Demarco Newell MD Primary Care Provider [phone] BALDOMERO ASTUDILLO Attending Unavailable DISHA CHEUNG Attending Unavailable STAYC HENDERSON Attending Unavailable DISHA CHEUNG Attending Unavailable DISHA CHEUNG Attending Unavailable Demarco Newell MD Primary Care Provider [phone] Demarco Newell MD Referring Provider Self, Referral Attending Provider Unavailable Bernardo Russell DO Emergency Provider Lion Shook MD Admit Provider Lion Shook MD Attending Provider Elton Baron MD Other Provider Víctor Wills MD Other Provider Rupert Bird Admitting Unavailable Rupert Bird Attending Unavailable Hoy, Demarco M Primary Care Unavailable Self, Referral Attending Unavailable Hoy, Demarco M Primary Care Unavailable Hoy, Demarco M Referring Unavailable Self, Referral Admitting Unavailable Hoy, Demarco M Primary Care Unavailable Elton Baron Consulting Unavailable Lion Shook Admitting Unavailable Lion Shook Attending Unavailable Víctor Wills Consulting Unavailable VÍCTOR WILLS Referring Unavailable DEMARCO NEWELL Primary Care Unavailable BHAVIK WILLSAN M Referring Unavailable DEMARCO NEWELL Primary Care Unavailable Demarco Newell MD Primary Care Provider VÍCTOR WILLS Attending Unavailable DEMARCO NEWELL Primary Care Unavailable VÍCTOR WILLS Attending Unavailable DEMARCO NEWELL Primary Care Unavailable VÍCTOR WILLS Referring Unavailable VÍCTOR WILLS Attending Unavailable DEMARCO NEWELL Primary Care Unavailable Allergies Allergy Classification Reported Allergen(s) Allergy Type Date of Onset Reaction(s) Facility Angiotensin Converting Enzyme (SERINA) Inhibitors (1 source) Angiotensin Converting Enzyme (Serina) Inhibitors Drug Allergy 0 [facility] Repository Opioid Agonists (2 sources) Codeine; Translations: [morphine] Drug Allergy 0 [facility] Repository (20 sources) Angiotensin-con verting enzyme inhibitor agent; Translations: [SERINA INHIBITORS] Drug Allergy 2 Rash, Eruption of skin (disorder), [facility] (20 sources) Codeine; Translations: [CODEINE] Drug Allergy 2 Vomiting, Vomiting (disorder), Nausea And Vomiting, Nausea Only, GI intolerance [facility] (20 sources) HYDROmorphone; Translations: [HYDROMORPHONE (BULK)] Drug Allergy 2 Vomiting [facility] (20 sources) Angiotensin-con verting enzyme inhibitor agent Drug Allergy 2 Rash, [facility], [facility] (20 sources) amLODIPine; Translations: [AMLODIPINE] Drug Allergy 2 Swelling [facility] (9 sources) Acetaminophen; Translations: [acetaminophen] Drug Allergy 7 GI intolerance [facility] (11 sources) HYDROcodone; Translations: [hydrocodone] Drug Allergy 7 GI intolerance [facility] (20 sources) Meperidine; Translations: [MEPERIDINE] Drug Allergy 7 Vomiting, Vomiting (disorder), GI intolerance [facility] (20 sources) Morphine; Translations: [morphine] Drug Allergy 7 Vomiting, Vomiting (disorder), GI Upset, Nausea And Vomiting [facility] (1 source) Angiotensin Converting Enzyme (Serina) Inhibitors Drug allergy (disorder) 3 [facility] Repository (1 source) Codeine Drug Allergy 3 [facility] Rep[facility] (1 source) Meperidine Drug Allergy 3 [facility] (10 sources) Amoxicillin; Translations: [AMOXICILLIN] Drug Allergy 3 Dizziness [facility] Repository (20 sources) gabapentin; Translations: [GABAPENTIN] Drug Allergy 9 Mental Status Change, Altered mental status (finding), Other [facility] Repository (2 sources) HYDROmorphone; Translations: [hydromorphone] Drug Allergy Vomiting (disorder) [facility] (10 sources) dilTIAZem; Translations: [DILTIAZEM] Drug Allergy 4 Shortness of breath [facility] Work Phone: (10 sources) Metoprolol; Translations: [METOPROLOL] Drug Allergy 4 Other [facility] Work Phone: (9 sources) Other Allergy to substance 3 [facility] (9 sources) Amiodarone; Translations: [AMIODARONE] Drug Allergy 4 GI Upset [facility] (9 sources) apixaban; Translations: [APIXABAN] Drug Allergy 4 GI bleeding [facility] Work Phone: (9 sources) Potassium; Translations: [POTASSIUM] Drug Allergy 4 [facility] Work Phone: (1 source) Angiotensin Converting Enzyme (Serina) Inhibitors Drug allergy (disorder) 5 [facility] Repository Medications Current Medications Medication Drug Class(es) Dates Sig (Normalized) Sig (Original) [id number] 200 actuat albuterol 0.09 mg/actuat metered dose inhaler (9 sources) beta2-Adrenergic Agonist Start: 12-29-2023 take 2 puff(s) by inhalation every four hours as needed Ventolin HFA 108 (90 Base) MCG/ACT inhaler INHALE 2 PUFFS EVERY 4 HOURS NEEDED FOR SHORTNESS OF BREATH OR FOR WHEEZE 12/29/2023 Active amiodarone hydrochloride 200 mg oral tablet (20 sources) Antiarrhythmic Start: 12-03-2023 amiodarone (Pacerone) 200 MG tablet Take 100 mg by mouth in the morning. 12/03/2023 Active Start: 11-02-2023 take 0.5 tablet by m outh once daily amiodarone (PACERONE) 200 mg tablet Take a half tablet by mouth once daily. 30 tablet 2 12/03/2023 Active Start: 10-24-2023 take 1 tablet by gricelda th every twelve hours amiodarone (PACERONE) 200 mg tablet Take 1 tablet by mouth every 12 hours. 0 10/24/2023 Suspended Comment on above: Take 1 tablet by gricelda th every 12 hours. Take 0.5 tablets by mouth once daily. amoxicillin 875 mg / clavulanate 125 mg oral tablet (1 source) Penicillin-class Antibacterial Start: 11-09-19 End: 11-16-19 Augmentin 875 mg-125 mg Tab 1 tab(s), Oral, q12hr for 7 day(s), 14 tab(s), Refill(s) 0 Start Date: 11/09/23 Stop Date: 11/16/23 Status: Ordered atorvastatin 40 mg oral tablet (20 sources) HMG-CoA Reductase Inhibitor Start: 09-29-19 take 1 tablet by mouth once daily Atorvastatin 40 mg tablet Active 40 MG PO Daily January 19, 2024 11:00pm Start: 07-28-2017 End: 08-29-2024 take 1 tablet by mouth once daily in the morning Atorvastatin 10 tablet Discontinued 40 MG PO Every morning July 28, 2017 12:00am August 29, 2024 3:41pm Start: 07-28-2017 take 10 mg by mouth at bedtime Atorvastatin Active 10 MG PO Bedtime July 28, 2017 1:00am Comment on above: Take 10 mg by mouth once daily. Take 40 mg by mouth once daily. azithromycin 250 mg oral tablet (1 source) Macrolide Antimicrobial Start: 11-09-19 azithromycin 250 mg Tab 250 mg, Oral, As Directed, # 6 tab(s), Refills(s) 0 Start Date: 11/09/23 Status: Ordered bacitracin 0.5 unt/mg ophthalmic ointment (3 sources) Start: 06-11-20 24 Bacitracin 500 unit/gram ointment Active 1 APPLIC EYE-BOTH Daily 3.5 7 January 19, 2024 11:00pm benoxinate hydrochloride 4 mg/ml / fluorescein sodium 2.5 mg/ml ophthalmic solution (1 source) Diagnostic Dye Start: 10-11-19 End: 10-11-19 fluorescein-benoxina te 0.25-0.4 % 1 Drop (FLURESS) citalopram 20 mg oral tablet (9 sources) Serotonin Reuptake Inhibitor take 1 tablet by mouth in the morning citalopram (CeleXA) 20 MG tablet Take 1 tablet by mouth in the morning. Active clopidogrel 75 mg oral tablet (20 sources) P2Y12 Platelet Inhibitor Start: 01-20-20 Clopidogrel Active MG TABLET January 20, 2024 12:00am Start: 12-04-2023 End: 07-16-2025 take 1 tablet by mouth once daily clopidogrel (Plavix) 75 mg tablet Indications: Coronary artery disease, unspecified vessel or lesion type, unspecified whether angina present, unspecified whether stillaguamish or transplanted heart Take 1 tablet (75 mg) by mouth once daily. 90 tablet 3 07/16/2024 07/16/2025 Active diclofenac sodium 75 mg delayed release oral tablet (9 sources) Nonsteroidal Anti-inflammatory Drug Start: 07-18-2022 take 1 tablet by mouth in the morning diclofenac (Voltaren) 75 MG EC tablet Take 75 mg by mouth in the morning and 75 mg before bedtime. 07/18/2022 Active 24 hr dilTIAZem hydrochloride 120 mg extended release oral capsule (9 sources) Calcium Channel Ken Start: 07-16-2022 take 1 capsule by mouth once daily in the morning dilTIAZem CD (Cardizem CD) 120 MG 24 hr capsule TAKE 1 CAPSULE BY MOUTH EVERY DAY IN THE MORNING 07/16/2022 Active doxepin hydrochloride 10 mg oral capsule (1 source) Tricyclic Antidepressant Start: 09-23-2024 take 1 capsule by mouth once daily at bedtime doxepin (SINEquan) 10 mg capsule Take 1 capsule (10 mg) by mouth once daily at bedtime. 09/23/2024 Active DULoxetine 30 mg delayed release oral capsule (9 sources) Serotonin and Norepinephrine Reuptake Inhibitor take 1 capsule by mouth in the morning DULoxetine (Cymbalta) [address] capsule Take 1 capsule by mouth in the morning. Active empagliflozin 10 mg oral tablet (12 sources) Sodium-Glucose Cotransporter 2 Inhibitor Start: 12-23-2023 take 1 tablet by mouth once daily at breakfast empagliflozin (JARDIANCE) 10 mg tablet Take 1 tablet by mouth daily with breakfast. 90 tablet 1 12/23/2023 Active End: 07-16-2024 take 0.5 mg by mouth in the morning empagliflozin (Jardiance) 10 MG Take 0.5 mg by mouth in the morning. Active furosemide 40 mg oral tablet (20 sources) Loop Diuretic Start: 08-29-2024 take 1 tablet by mouth once daily Furosemide 40 mg Tablet Active 40 MG PO Daily at 0800 August 29, 2024 12:00am Start: 12-03-2023 take 1 tablet by gricelda th once daily as needed, then take 5 tablets by mouth every week as needed furosemide (LASIX) 40 mg tablet Take 1 tablet by mouth once daily as needed (for >2lb weight gain in 1 day or >5 lb in 1 week, call numerical control machine machinist if taking this). 30 tablet 12/03/2023 Active Start: 10-14-2023 End: 11-30-2023 take 1 tablet by mouth once daily furosemide (LASIX) 20 mg tablet Take 1 tablet by mouth once daily. 30 tablet 0 10/31/2023 Suspended Start: 02-27-2023 take 1 tablet by gricelda th every other day furosemide (Lasix) 20 MG tablet Take 1 tablet every other day by oral route. 02/27/2023 Active furosemide (LASI X) 20 mg tablet Take 20 mg by mouth. 0 Active Comment on above: Take 20 mg by mouth. Take 1 tablet by gricelda th once daily. gabapentin 100 mg oral capsule (9 sources) Anti-epileptic Agent gabapentin (Neurontin) 100 MG capsule 1 capsule 1 (one) time each day at the same time. Active hydrALAZINE hydrochloride 25 mg oral tablet (20 sources) Arteriolar Vasodilator Start: 11-02-19 End: 01-31-20 take 1 tablet by mouth twice daily Hydralazine 25 mg tablet Active 25 MG PO Twice daily January 19, 2024 11:00pm Comment on above: Take 25 mg by mouth. Take 1 tablet by gricelda th two times a day. ipratropium bromide 0.042 mg/actuat metered dose nasal spray (8 sources) Anticholinergic Start: 04-07-20 End: 07-06-20 take 2 spray(s) nasal route in the morning, then take 2 spray(s) nasal route in the evening, then take 2 spray(s) nasal route at bedtime ipratropium (Atrovent) 0.06 % nasal spray Indications: Chronic rhinitis Administer 2 sprays into each nostril in the morning and 2 sprays in the evening and 2 sprays before bedtime. 15 mL 11 04/07/2024 Active 24 hr isosorbide mononitrate 30 mg extended release oral tablet (20 sources) Nitrate Vasodilator Start: 06-20-20 take 1 tablet by mouth once daily, then take 1 tablet by mouth every twenty-four hours Isosorbide Mononitrate 30 mg tablet extended release 24 hr Active 30 MG PO Daily January 19, 2024 11:00pm Comment on above: Take 30 mg by mouth. krill oil 500 mg oral capsule (18 sources) Krill Oil 500 MG capsule Orally Active liothyronine sodium 0.005 mg oral tablet (20 sources) l-Triiodothyronine Start: 06-20-20 take 1 tablet by mouth once daily liothyronine (Cytomel) 5 mcg tablet Take 1 tablet (5 mcg) by mouth once daily. 12/04/2023 Active Comment on above: Take 1 tablet by [facility] every afternoon. loperamide hydrochloride 2 mg oral capsule (2 sources) Opioid Agonist Start: 08-28-19 take 1 capsule by mouth once at bedtime Loperamide (Imodium A-D) 2 mg capsule Active 2 MG PO Bedtime August 28, 2024 12:00am Start: 06-19-2023 take 1 capsule by mo [facility] three times daily as needed for diarrhea loperamide (Imodium) 2 mg capsule Take 1 capsule (2 mg) by mouth 3 times a day as needed for diarrhea. 06/19/2023 Active loratadine 10 mg oral tablet (3 sources) Start: 01-20-2024 take 1 tablet by mouth once daily as needed Loratadine (Claritin) 10 mg tablet Active 10 MG PO Daily as needed for allergic symptoms 7 7 January 19, 2024 11:00pm losartan potassium 100 mg oral tablet (20 sources) Angiotensin 2 Receptor Ken Start: 10-13-2022 take 1 tablet by mouth in the morning losartan (Cozaar) 100 MG tablet Take 1 tablet by mouth in the morning. 10/13/2022 Active Start: 07-28-2017 End: 01-20-2024 take 1 tablet by mouth at bedtime Losartan 25 tablet Discontinued 25 MG PO Bedtime July 28, 2017 12:00am January 20, 2024 11:49am Start: 07-28-2017 End: 01-20-2024 take 1 tablet by mouth once daily Losartan 50 tablet Discontinued 50 MG PO Daily July 28, 2017 12:00am January 20, 2024 11:48am take 2 tablets by mo uth once daily losartan (COZAAR) 50 mg tablet Take 100 mg by mouth once daily. 0 Active Comment on above: Take 50 mg by mouth once daily. Take 100 mg by mouth once daily. meclizine hydrochloride 25 mg oral tablet (9 sources) Antiemetic Start: meclizine (Antivert) 25 MG tablet 25 mg 4 (four) times a day as needed 03/18/2023 Active meloxicam 15 mg oral tablet (9 sources) Nonsteroidal Anti-inflammatory Drug take 1 tablet by mouth in the morning meloxicam (Mobic) 15 MG tablet Take 1 tablet by mouth in the morning. Active Multiple Vitamin (MULTIVITAMIN ADULT PO) (9 sources) Multiple Vitamin (MULTIVITAMIN ADULT PO) Take by mouth. Active Multiple Vitamins-Minerals (PRESERVISION AREDS 2 PO) (9 sources) Multiple Vitamins-Minerals (PRESERVISION AREDS 2 PO) PreserVision AREDS Active multivitamin tablet (1 source) take 1 tablet by mouth once daily multivitamin tablet Take 1 tablet by mouth once daily. Active nebivolol 5 mg oral tablet (2 sources) Start: 025 take 1 tablet by mouth once daily Nebivolol 5 mg Tablet Active 5 MG PO Daily August 29, 2024 12:00am nitrofurantoin, macrocrystals 25 mg / nitrofurantoin, monohydrate 75 mg oral capsule (1 source) Nitrofuran Antibacterial Start: 025 take 1 capsule by mouth twice daily at mealtime Nitrofurantoin Monohyd/M-Cryst (Macrobid) 100 mg capsule Active 100 MG PO Twice daily 14 August 29, 2024 12:00am must administer with a meal/food pantoprazole 40 mg delayed release oral tablet (20 sources) Proton Pump Inhibitor Start: 023 take 1 tablet by mouth once daily Pantoprazole (Protonix) 40 mg tablet,delayed release (DR/EC) Active 40 MG PO Daily January 19, 2024 11:00pm pantoprazole sod ium (PANTOPRAZOLE ORAL) Take 40 mg by mouth. 0 Active Comment on above: Take 40 mg by mouth. Take 40 mg by mouth once daily. phenylephrine hydrochloride 25 mg/ml ophthalmic solution (1 source) alpha-1 Adrenergic Agonist Start: 10-10-2022 End: 10-10-2022 PHENYLephrine 2.5 % 1 Drop (AK-DILATE, ROBERT-SYNEPHRINE) microencapsulated potassium chloride 20 meq extended release oral tablet (20 sources) Start: 08-29-2024 Potassium Chloride (Klor-Con M20) 20 mEq Tablet,Er Particles/Crystals Active 40 MEQ PO Daily as needed for Hypokalemia August 29, 2024 12:00am Start: 12-03-2023 take 1 tablet by gricelda th once daily as needed potassium chloride ER (KLOR-CON) 20 mEq tablet Take 1 tablet by mouth once daily as needed (take only if taking a dose of lasix for weight gain/swelling). 30 tablet 12/03/2023 Active Start: 11-17-2023 take 1 capsule by mo [facility] once daily potassium chloride SR (MICRO-K) 8 mEq cpER Take 1 capsule by mouth once daily. 30 capsule 1 11/17/2023 Suspended Start: 11-02-2023 End: 01-31-2024 take 1 tablet by mouth once daily potassium chloride CR 10 mEq ER tablet Take 1 tablet (10 mEq) by mouth once daily. 11/02/2023 Active Start: 01-23-2022 End: 10-31-2023 potassium chloride ER (K-DUR , KLOR-CON) 10 mEq tablet Take 10 mEq by mouth twice daily. 0 01/23/2022 10/31/2023 Discontinued Comment on above: Take 10 mEq by mouth twice daily. Take 1 tablet by gricelda th once daily. Take 1 capsule by mo ut once daily. proparacaine hydrochloride 5 mg/ml ophthalmic solution (1 source) Local Anesthetic Start: 10-10-2022 End: 10-10-2022 proparacaine 0.5 % 1 Drop (ALCAINE) tacrolimus 0.001 mg/mg topical ointment (2 sources) Calcineurin Inhibitor Immunosuppressant Start: 06-09-2024 End: 06-09-2025 tacrolimus (Protopic) 0.1 % ointment Indications: Flexural atopic dermatitis Apply topically 2 (two) times a day 30 g 3 06/09/2024 06/09/2025 Active triamcinolone acetonide 1 mg/ml topical cream (5 sources) Corticosteroid Start: 04-21-2024 triamcinolone (Kenalog) 0.1 % cream Indications: Vaginal itching Apply topically 2 (two) times a day 30 g 1 04/21/2024 Active tropicamide 10 mg/ml ophthalmic solution (1 source) Anticholinergic Start: 10-10-2022 End: 10-10-2022 tropicamide 1 % 1 Drop (MYDRIACYL) ubidecarenone 10 mg oral capsule (14 sources) End: 11-06-2023 coenzyme Q-10 10 MG capsule Active End: 03-07-2022 ubidecarenone Q-10 (COENZYME Q-10) 10 mg cap Take by mouth. 0 03/07/2022 Discontinued (Discontinued by Patient) Comment on above: Take by mouth. vit C/E/zinc/lutein/zeax anthin (OCUVITE EYE HEALTH ORAL) (7 sources) take 1 capsule by mouth once daily vit C/E/zinc/lutein/carrie xanthin (OCUVITE EYE HEALTH ORAL) Take 1 capsule by mouth once daily. Active Vitamin A-Vitamin C-Vit E-Min (Ocutabs) tablet (2 sources) Start: 08-28-2024 take 1 tablet by mouth once at bedtime Vitamin A-Vitamin C-Vit E-Min (Ocutabs) tablet Active 1 TAB PO Bedtime August 28, 2024 12:00am Start: 08-28-2024 take 1 tablet by gricelda th once daily Vitamin A-Vitamin C-Vit E-Min (Ocutabs) tablet Active 1 TAB PO Daily August 28, 2024 12:00am warfarin sodium 5 mg oral tablet (3 sources) Vitamin K Antagonist Start: 08-28-2024 take 1 tablet by mouth at bedtime Warfarin 5 mg tablet Active 5 MG PO Bedtime August 28, 2024 12:00am Completed/Discontinued Medications Medication Drug Class(es) Dates Sig (Normalized) Sig (Original) amLODIPine 5 mg oral tablet (16 sources) Dihydropyridine Calcium Channel Ken Start: 03-18-2012 End: 08-28-2024 take 1 tablet by mouth once daily Amlodipine 5 tablet Discontinued 5 MG PO Daily July 28, 2017 12:00am August 28, 2024 12:16pm Comment on above: once daily. apixaban 5 mg oral tablet (20 sources) Factor Xa Inhibitor Start: 12-03-2023 End: 08-28-2024 take 1 tablet by mouth twice daily Apixaban (Eliquis) 5 mg tablet Discontinued 5 MG PO Twice daily January 19, 2024 11:00pm August 28, 2024 12:17pm Start: 09-30-2023 take 1 tablet by gricelda th every twelve hours ELIQUIS 5 mg tab(s) Take 1 tablet by mouth every 12 hours. 0 09/30/2023 Suspended Comment on above: Take 1 tablet by gricelda th every 12 hours. aspirin 81 mg delayed release oral tablet (20 sources) Platelet Aggregation Inhibitor, Nonsteroidal Anti-inflammatory Drug Start: 07-16-2024 End: 07-16-2025 take 1 tablet by mouth once daily aspirin 81 mg EC tablet Indications: Coronary artery disease, unspecified vessel or lesion type, unspecified whether angina present, unspecified whether stillaguamish or transplanted heart Take 1 tablet (81 mg) by mouth once daily. 07/16/2024 10/04/2024 Discontinued (Therapy completed) Start: 12-04-2023 End: 12-10-2023 take 1 tablet by mouth once daily aspirin 81 mg chewable tablet Take 1 tablet by mouth once daily for 6 doses. Patient should start on December 04, 2023. 6 tablet 12/04/2023 Active ASPIRIN 81 PO As pirin Active aspirin 81 mg ca p Take by mouth. 0 Suspended Comment on above: Take by mouth. baclofen 20 mg oral tablet (5 sources) gamma-Aminobutyric Acid-ergic Agonist Start: 07-28-2017 End: 01-20-2024 take 1 tablet by mouth twice daily Baclofen 20 tablet Discontinued 20 MG PO Twice daily July 28, 2017 12:00am January 20, 2024 11:49am Biotin (4 sources) End: 11-06-2023 BIOTIN ORAL BIOTIN ORAL celecoxib 200 mg oral capsule (5 sources) Nonsteroidal Anti-inflammatory Drug Start: 07-28-2017 End: 07-29-2017 take 1 capsule by mouth once daily Celecoxib 200 mg Capsule Discontinued 200 MG PO Daily July 28, 2017 12:00am July 29, 2017 5:21pm cephalexin 500 mg oral capsule (8 sources) Cephalosporin Antibacterial Start: 01-20-2024 End: 08-28-2024 take 1 capsule by mouth twice daily Cephalexin 500 mg capsule Discontinued 500 MG PO Twice daily 14 January 19, 2024 11:00pm August 28, 2024 12:18pm Start: 07-29-2017 End: 01-20-2024 take 1 capsule by mouth every eight hours Cephalexin (Keflex) 500 mg capsule Discontinued 500 MG PO Q8H 21 7 July 29, 2017 12:00am January 20, 2024 11:49am cyclobenzaprine hydrochloride 5 mg oral tablet (15 sources) Muscle Relaxant Start: 02-08-2022 take 1 tablet by mouth once daily at bedtime cyclobenzaprine (FLEXERIL) 5 mg tablet Take 5 mg by mouth daily at bedtime. 0 02/08/2022 Active Comment on above: Take 5 mg by mouth d aily at bedtime. docusate sodium 50 mg / sennosides, [facility] 8.6 mg oral tablet (5 sources) Start: 07-29-2017 End: 01-20-2024 take 2 tablets by mouth twice daily Sennosides-Docusate Sodium (Dok Plus) 8.6-50 mg Tablet Discontinued 2 TAB PO Twice daily 40 14 July 29, 2017 12:00am January 20, 2024 11:48am escitalopram 20 mg oral tablet (20 sources) Serotonin Reuptake Inhibitor Start: 08-28-2024 End: 08-29-2024 Escitalopram Oxalate 20 mg tablet Discontinued MG TABLET August 28, 2024 12:00am August 29, 2024 3:41pm Start: 01-20-2024 take 2 tablets by mo uth at bedtime Escitalopram Oxalate (Lexapro) 10 mg tablet Active 20 MG PO Bedtime January 19, 2024 11:00pm Start: 02-19-2023 End: 10-04-2024 take 1 tablet by mouth in the morning escitalopram (Lexapro) 10 MG tablet Take 10 mg by mouth in the morning. 02/19/2023 Active Comment on above: Take 1 tablet by gricelda th every afternoon. FLUoxetine 20 mg oral capsule (7 sources) Serotonin Reuptake Inhibitor Start: End: take 1 capsule by mouth once daily Fluoxetine 20 mg Capsule Discontinued 20 MG PO Daily July 28, 2017 12:00am August 28, 2024 12:20pm Comment on above: once daily. hydrocortisone 25 mg/ml topical cream (5 sources) Corticosteroid Start: 024 End: hydrocortisone 2.5 % cream Indications: Dermatitis Apply topically 2 (two) times a day for 14 days Apply wet cloth to the skin around the eyes for 5 minutes followed by hydrocortisone cream to the wet skin followed by petroleum jelly. 20 g 2 04/07/2024 04/21/2024 ketorolac tromethamine 5 mg/ml ophthalmic solution (4 sources) Nonsteroidal Anti-inflammatory Drug, Cyclooxygenase Inhibitor Start: 022 End: keTORolac (ACULAR) 0.5 % ophthalmic solution USE DIRECTED BY PHYSICIAN, IN OPERATIVE EYE, BEGINNING ONE DAY AFTER SURGERY 5 mL 0 05/14/2022 10/10/2022 Discontinued (Course of therapy completed) Comment on above: USE DIRECTED BY Star COE, IN OPERATIVE EYE, BEGINNING ONE DAY AFTER SURGERY 24 hr metoprolol succinate 25 mg extended release oral tablet (10 sources) beta-Adrenergic Ken Start: End: take 1 tablet by mouth once daily Metoprolol Succinate 25 mg tablet extended release 24 hr Discontinued 25 MG PO Daily August 28, 2024 12:00am August 29, 2024 3:41pm Start: 07-01-2022 take 1 tablet by gricelda th once daily in the morning metoprolol succinate XL (Toprol-XL) 25 MG 24 hr tablet TAKE 1 TABLET BY MOUTH EVERY DAY IN THE MORNING *DO NOT CRUSH OR CHEW* 07/01/2022 Active Multivitamin capsule (16 sources) take 1 capsule by mo uth once daily Multivitamin capsule Take 1 capsule by mouth once daily. 0 Suspended take 1 capsule by mouth once [address] Multivitamin capsule Take 1 capsule by mouth once daily. 0 Active Comment on above: [facility]. Naproxen (2 sources) Nonsteroidal Anti-inflammatory [...] Patient) Comment on above: Take by mouth. prednisoLONE acetate 10 mg/ml ophthalmic suspension (4 [...] Active Comment on above: Take by mouth. regadenoson (Lexiscan) injection 0.4 mg (1 source) Start: End: 0.4 mg, intravenous, Once, On Fri09/15/24 at 1315, For 1 dose Tc-99m tetrofosmin (Myoview) injection 10 millicurie (1 source) Start: End: 10 millicurie, intravenous, Once in imaging, Starting on Fri09/15/24 at 1259, For 1 dose, Administer 45 to 90 minutes prior to imaging unless otherwise indicated. Tc-99m tetrofosmin (Myoview) injection 30 millicurie (1 source) Start: End: 30 millicurie, intravenous, Once in imaging, Starting on Fri09/15/24 at 1407, For 1 dose, Administer 45 to 90 minutes prior to imaging unless otherwise indicated. terconazole 4 mg/ml vaginal cream (2 sources) Azole Antifungal Start: 4 End: terconazole (Terazol 7) 0.4 % vaginal cream Indications: Vulvovaginal Candidiasis Insert 1 applicator into the vagina at bedtime for 7 days 45 g 3 04/21/2024 04/28/2024 traMADol hydrochloride 50 mg oral tablet (20 sources) Opioid Agonist Start: take 1 tablet by mouth every eight hours as needed traMADol (ULTRAM) 50 mg tablet Take 50 mg by mouth three times daily as needed. 0 11/27/2021 Suspended Start: 07-28-2017 End: 01-20-2024 take 1 tablet by mouth every six hours as needed for pain Tramadol 50 mg tablet Discontinued 50 MG PO Every 6 hours as needed for Pain 40 14 July 29, 2017 5:23pm January 20, 2024 11:48am Comment on above: Take 50 mg by mouth three times daily as needed. TYRVAYA 0.03 mg/spray nasal spray (10 sources) Start: 01-03-2022 End: 11-06-2023 take 1 spray(s) nasal route twice daily TYRVAYA 0.03 mg/spray nasal spray Instill 1 spray into both nostrils twice a day 0 01/03/2022 11/06/2023 Discontinued Start: 01-03-2022 take 1 spray(s) nasa l route twice daily TYRVAYA 0.03 mg/spray nasal spray Instill 1 spray into both nostrils twice a day 0 01/03/2022 Suspended Start: 01-03-2022 take 1 spray(s) nasa l route twice daily TYRVAYA 0.03 mg/spray nasal spray Instill 1 spray into both nostrils twice a day 0 01/03/2022 Active Comment on above: Instill 1 spray into both nostrils twice a day 24 hr venlafaxine 75 mg extended release oral capsule (7 sources) Serotonin and Norepinephrine Reuptake Inhibitor Start: 04-09-20 End: 10-31-19 24 take 1 capsule by mouth once daily venlafaxine ER (EFFEXOR XR) 75 mg 24 hr capsule Take 75 mg by mouth once daily. 0 04/09/2022 10/31/2023 Discontinued Comment on above: Take 75 mg by mouth once daily. vit A/vit C/vit E/zinc/copper (PRESERVISION AREDS ORAL) (9 sources) vit A/vit C/vit E/zinc/copper (PRESERVISION AREDS ORAL) VIT C/VIT E/LUTEIN/MIN/OMEGA-3 (OCUVITE ORAL) (11 sources) End: 11-06-19 24 VIT C/VIT E/LUTEIN/MIN/OMEGA-3 (OCUVITE ORAL) Take by mouth. 0 11/06/2023 Discontinued VIT C/VIT E/LUTE IN/MIN/OMEGA-3 (OCUVITE ORAL) Take by mouth. 0 Suspended VIT C/VIT E/LUTE IN/MIN/OMEGA-3 (OCUVITE ORAL) Take by mouth. 0 Active Comment on above: Take by mouth. Problems Active Problems Problem Classification Problem Date Documented Date Episodic/Chronic Acute bronchitis (1 source) Acute bronchitis, unspecified; Translations: [ACUTE BRONCHITIS UNSPECIFIED] Onset: 09-29-2022 Episodic Acute myocardial infarction (12 sources) Myocardial infarction; Translations: [Non-ST elevation (NSTEMI) myocardial infarction] Onset: 11-25-2023 11-25-2023 Chronic Allergic reactions (3 sources) Flexural atopic dermatitis; Translations: [Other atopic dermatitis] 06-09-2024 Chronic Anxiety disorders (20 sources) Anxiety; Translations: [Anxiety disorder, unspecified] Onset: 04-24-2022 04-24-2022 Chronic Aortic; peripheral; and visceral artery aneurysms (14 sources) Femoral false aneurysm; 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] Onset: 11-05-2023 11-05-2023 Chronic Cardiac dysrhythmias (20 sources) Atrial fibrillation; Translations: [Unspecified atrial fibrillation] Onset: 09-11-2023 10-31-2023 Chronic Cataract (6 sources) Bilateral senile combined form cataracts of eyes; Translations: [Combined forms of age-related cataract, bilateral] Chronic Chronic kidney disease (20 sources) Chronic kidney disease; Translations: [Chronic kidney disease, unspecified] Onset: 11-24-2023 11-11-2023 Chronic Chronic kidney disease (2 sources) Chronic kidney disease; Translations: [Chronic kidney disease, stage 3 unspecified (Multi)] Onset: 01-12-2024 Congestive heart failure; nonhypertensive (20 sources) Acute on chronic diastolic (congestive) heart failure; Translations: [Chronic heart failure co-occurrent with normal ejection fraction] Onset: 07-08-2023 Chronic Coronary atherosclerosis and other heart disease (20 sources) Coronary arteriosclerosis; Translations: [Atherosclerotic heart disease of [place] coronary artery without angina pectoris] Onset: 04-24-2022 04-24-2022 Chronic Deficiency and other anemia (1 source) Anemia, unspecified; Translations: [ANEMIA UNSPECIFIED] Onset: 11-18-2022 Episodic Diabetes mellitus without complication (1 source) Hyperglycemia, unspecified; Translations: [HYPERGLYCEMIA UNSPECIFIED] Onset: 11-18-2022 Episodic Disorders of lipid metabolism (20 sources) Hyperlipidemia; Translations: [Hyperlipidemia, unspecified] Onset: 02-22-2019 04-24-2022 Chronic Esophageal disorders (20 sources) Gastroesophageal reflux disease; Translations: [Gastro-esophageal reflux disease without esophagitis] Onset: 02-22-2019 04-24-2022 Chronic Essential hypertension (20 sources) Hypertensive disorder; Translations: [Essential (primary) hypertension] Onset: 02-22-2019 04-24-2022 Chronic Heart valve disorders (20 sources) Nonrheumatic mitral (valve) insufficiency; Translations: [Nonrheumatic [...] eye; Translations: [Punctate keratitis, left eye] Chronic Inflammatory diseases of female pelvic organs (2 sources) Acute vaginitis; Translations: [Acute vaginitis] 05-15-2024 Episodic Malaise and fatigue (3 sources) Other fatigue; Translations: [Other malaise] Onset: 11-18-2022 Episodic Mood disorders (20 sources) Depressive disorder; Translations: [Depression] Onset: 04-24-2022 04-24-2022 Chronic Nonspecific chest pain (1 source) Chest pain, unspecified; Translations: [Chest pain, unspecified type] Onset: 10-14-2023 Episodic Osteoporosis (2 sources) Postmenopausal osteoporosis; Translations: [Age-related osteoporosis without current pathological fracture] 04-21-2024 Chronic Other aftercare (14 sources) Patient encounter status; Translations: [Encounter for therapeutic drug level monitoring] Onset: 11-26-2023 11-26-2023 Episodic Other aftercare (11 sources) Taking high risk medication; Translations: [Other long chain beamer (current) drug therapy] Onset: 01-12-2024 01-12-2024 Episodic Other aftercare (2 sources) Long-term current use of anticoagulant; Translations: [manager long term care (current) use of anticoagulants] Onset: 09-11-2023 05-02-2024 Episodic Other and ill-defined heart disease (11 sources) Diastolic dysfunction; Translations: [Other ill-defined heart diseases] Onset: 01-12-2024 01-12-2024 Chronic Other and ill-defined heart disease (2 sources) Other ill-defined heart diseases; Translations: [Other ill-defined heart diseases] Onset: 01-12-2024 Chronic Other circulatory disease (4 sources) Raynaud's syndrome without gangrene; Translations: [RAYNAUDS SYNDROME WITHOUT GANGRENE] Onset: 07-25-2022 Chronic Other circulatory disease (14 sources) Arteriovenous fistula; 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, acquired] Onset: 11-05-2023 11-05-2023 Chronic Other circulatory disease (1 source) Other specified symptoms and signs involving the circulatory and respiratory systems; Translations: [Other symptoms involving cardiovascular system] 11-11-2023 Episodic Other connective tissue disease (1 source) Pain in lower limb Onset: 11-04-2023 Episodic Other eye disorders (1 source) Posterior vitreous detachment of right eye; Translations: [Vitreous degeneration, right eye] Chronic Other eye disorders (1 source) Bilateral vitreous degeneration of eyes; Translations: [Vitreous degeneration, bilateral] Chronic Other eye disorders (1 source) H/O: L cataract extraction; Translations: [Cataract extraction status, left eye] Episodic Other female genital disorders (2 sources) Pruritus of vagina; Translations: [Other specified noninflammatory disorders of vagina] 04-21-2024 Episodic Other lower respiratory disease (4 sources) Shortness of breath; Translations: [Shortness of breath] Onset: 07-08-2023 Episodic Other lower respiratory disease (1 source) Dyspnea; Translations: [Shortness of breath] 11-11-2023 Episodic Other lower respiratory disease (1 source) Multiple nodules of lung; Translations: [Other nonspecific abnormal finding of lung field] 12-02-2023 Episodic Other lower respiratory disease (1 source) Other forms of dyspnea; Translations: [Dyspnea on exertion] Onset: 11-26-2023 Episodic Other nutritional; endocrine; and metabolic disorders (16 sources) Obese class I; Translations: [Obesity, unspecified] Onset: 10-30-2023 10-31-2023 Chronic Other nutritional; endocrine; and metabolic disorders (10 sources) Body mass index 30+ - obesity; Translations: [Body mass index (BMI) 30.0-30.9, adult] Onset: 01-12-2024 01-12-2024 Chronic Other nutritional; endocrine; and metabolic disorders (2 sources) Body mass index (BMI) 30.0-30.9, adult; Translations: [Body mass index (BMI) 30.0-30.9, adult] Onset: 10-04-2024 Chronic Other screening for suspected conditions (not mental disorders or infectious disease) (3 sources) Cancer cervix screening status; Translations: [Encounter for screening for malignant neoplasm of cervix] Onset: 07-29-2024 04-21-2024 Episodic Other upper respiratory disease (2 sources) Chronic rhinitis; Translations: [Chronic rhinitis] 04-07-2024 Chronic Pleurisy; pneumothorax; pulmonary collapse (6 sources) Pleural effusion; Translations: [Pleural effusion, not elsewhere classified] Onset: 08-28-2024 08-28-2024 Episodic Pneumonia (except that caused by tuberculosis or sexually transmitted disease) (1 source) Pneumonia; Translations: [Pneumonia, unspecified organism] Onset: 11-09-2023 Episodic Pulmonary heart disease (2 sources) Pulmonary hypertension, unspecified; Translations: [Pulmonary hypertension, unspecified] Onset: 07-08-2023 Chronic Residual codes; unclassified (3 sources) Periorbital edema; Translations: [Localized edema] 01-20-2024 Episodic Residual codes; unclassified (2 sources) Postmenopausal state; Translations: [Asymptomatic menopausal state] 04-21-2024 Episodic Retinal detachments; defects; vascular occlusion; and retinopathy (1 source) Retinal pigment epithelial abnormality; 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 Thyroid disorders (16 sources) Hypothyroidism; Translations: [Hypothyroidism, unspecified] Onset: 11-24-2023 11-11-2023 Chronic Unclassified (3 sources) CONTACT W/AND (SUSP) EXPOS COVID-19; Translations: [CONTACT W/AND (SUSP) EXPOS COVID-19] Onset: 09-29-2022 Unclassified (9 sources) Interactive Heart Surgery Education Onset: 11-11-2023 11-11-2023 Urinary tract infections (5 sources) Acute urinary tract infection; Translations: [Urinary tract infection, site not specified] Onset: 08-28-2024 08-28-2024 Episodic Past or Other Problems Problem Classification Problem Date Documented Da te Episodic/Chronic Acute and unspecified renal failure (16 sources) Acute renal failure syndrome; Translations: [Acute kidney failure, unspecified] Onset: 10-27-2023 10-31-2023 Episodic Coronary atherosclerosis and other heart disease (7 sources) Presence of coronary angioplasty implant and graft; Translations: [Stented coronary artery] Onset: 07-01-2022 Episodic Other aftercare (14 sources) Drug therapy finding; Translations: [manager long term care (current) use of anticoagulants] Onset: 11-09-2023 11-09-2023 Episodic Other aftercare (2 sources) Other long chain beamer (current) drug therapy; Translations: [Other long-term (current) drug therapy] Onset: 01-12-2024 Episodic Other connective tissue disease (14 sources) Swelling of right lower limb; Translations: [Other specified soft tissue disorders] Onset: 11-05-2023 11-05-2023 Episodic Other lower respiratory disease (20 sources) Dyspnea on exertion; Translations: [Other forms of dyspnea] Onset: 11-24-2023 11-24-2023 Episodic Other non-traumatic joint disorders (20 sources) Pain in unspecified knee; Translations: [Pain in joint, lower leg] Onset: 06-04-2012 06-04-2012 Episodic Screening and history of mental health and substance abuse codes (13 sources) Ex-smoker; Translations: [Personal history of nicotine dependence] Onset: 01-12-2024 01-12-2024 Episodic Skin and subcutaneous tissue infections (4 sources) Cellulitis of periorbital region; Translations: [Periorbital cellulitis] Onset: 01-20-2024 01-20-2024 Episodic Spondylosis; intervertebral disc disorders; other back problems (20 sources) Chronic low back pain; Translations: [Chronic bilateral low back pain without sciatica] Onset: 06-14-2016 08-07-2021 Episodic Superficial injury; contusion (14 sources) Hematoma of right lower leg; Translations: [Contusion of right lower leg, initial encounter] Onset: 11-05-2023 11-05-2023 Episodic Unclassified (1 source) CONTACT W/AND (SUSP) EXPOS COVID-19; Translations: [CONTACT W/AND (SUSP) EXPOS COVID-19] Onset: 09-25-2022 Unclassified (8 sources) Onset: 01-12-2024 Resolved: 07-16-2024 01-12-2024 Results Test Name Value Interpretation Reference Range Facility ECG 12 [place] 10-04-2024 ECG revealed sinus bradycardia with nonspecific ST and T changes, abnormal ECG [facility] Work Phone: WS Heart Perfusion W stress and W radionuclide Derek 09-15-2024 Normal Lexiscan Myov iew cardiac perfusion stress test. No evidence of ischemia or myocardial infarction by perfusion imaging. Normal left ventricular systolic function, ejection fraction 73%. When compared to a study from 2013, no significant interval changes were seen. Signed by: Víctor Wills 09/15/2024 6:03 PM Dictation workstation: [id number] [id number] MMODAL Interpreted By: Víctor Gallegos, and James Petty STUDY: MYOCARDIAL PERFUSION STRESS TEST WITH LEXISCAN Performing facility: [facility], [address] [place] [address], [address], [place] [address] [facility] Provider: Víctor Wills MD, [facility] PCP: Dr. Aleah Newell Supervising provider: Víctor Wills MD, [facility] INDICATION: CAD; HLD HISTORY: Gender: F; Age: 79 y/o ; Height: HT 160 cm cm; Weight: WT 79.379 kg kg. High Cholesterol; CAD; HTN; Arrhythmias;A-fib ICM CHF MVR Quit smoking 38 years ago. Cardiac catheterization on 2023. PTCA on 2023. COMPARISON: Previous echo testing completed [id number] at [facility]. ACCESSION NUMBER(S): [id number] ORDERING CLINICIAN: VÍCTOR WILLS TECHNIQUE: ONE DAY protocol. Stress injection: Date:09-15-24, 32.5 mCi of Myoview IV 20 seconds after rapid injection of Lexiscan. Rest injection: Date: 09-15-24, 10.7 mCi of Myoview IV at rest. The patient had a rapid injection of 0.4 mg of Lexiscan IV over 10 seconds. Imaging was performed by gated tomographic technique. Reason for Lexiscan: dizziness/unsteady/fall risk STRESS TEST DATA: Resting heart rate was 51 BPM. Resting blood pressure was 122/70 mmHg. Peak blood pressure was 108/68 mmHg. Peak heart rate was 65 BPM. TEST TERMINATED DUE TO: Protocol completed FINDINGS: STRESS TEST RESULTS: Resting electrocardiogram revealed sinus bradycardia with PACs and diffuse repolarization abnormalities. There were no significant ischemic ECG changes or dysrhythmias. The patient did not have chest pains/symptoms during procedure. There was a normal recovery phase. IMAGING RESULTS: Image quality was good. Rest and stress tomographic images were reviewed and revealed normal perfusion without evidence of ischemia, myocardial infarction, or left ventricular dilatation with stress. Overall left ventricular systolic function appeared to be normal without regional wall motion abnormalities. Ejection fraction was 73%. TID is 1.0 and is normal. There was no evidence of attenuation artifact. MMODAL Víctor Wills M D - 09/15/2024 Interpreted By: Víctor Wills and Giannuzzi Michael STUDY: MYOCARDIAL PERFUSION STRESS TEST WITH LEXISCAN Performing facility: [facility], [address] [place] [address], [address], [place] [address] [facility] Provider: Víctor Wills MD, [facility]ACC PCP: Dr. Aleah Newell Supervising provider: Víctor Wills MD, [facility] INDICATION: CAD; HLD HISTORY: Gender: F; Age: 79 y/o ; Height: HT 160 cm cm; Weight: WT 79.379 kg kg. High Cholesterol; CAD; HTN; Arrhythmias;A-fib ICM CHF MVR Quit smoking 38 years ago. Cardiac catheterization on 2023. PTCA on 2023. COMPARISON: Previous echo testing completed [id number] at [facility]. ACCESSION NUMBER(S): [id number] ORDERING CLINICIAN: VÍCTOR WILLS TECHNIQUE: ONE DAY protocol. Stress injection: Date:09-15-24, 32.5 mCi of Myoview IV 20 seconds after rapid injection of Lexiscan. Rest injection: Date: 09-15-24, 10.7 mCi of Myoview IV at rest. The patient had a rapid injection of 0.4 mg of Lexiscan IV over 10 seconds. Imaging was performed by gated tomographic technique. Reason for Lexiscan: dizziness/unsteady/fall risk STRESS TEST DATA: Resting heart rate was 51 BPM. Resting blood pressure was 122/70 mmHg. Peak blood pressure was 108/68 mmHg. Peak heart rate was 65 BPM. TEST TERMINATED DUE TO: Protocol completed FINDINGS: STRESS TEST RESULTS: Resting electrocardiogram revealed sinus bradycardia with PACs and diffuse repolarization abnormalities. There were no significant ischemic ECG changes or dysrhythmias. The patient did not have chest pains/symptoms during procedure. There was a normal recovery phase. IMAGING RESULTS: Image quality was good. Rest and stress tomographic images were reviewed and revealed normal perfusion without evidence of ischemia, myocardial infarction, or left ventricular dilatation with stress. Overall left ventricular systolic function appeared to be normal without regional wall motion abnormalities. Ejection fraction was 73%. TID is 1.0 and is normal. There was no evidence of attenuation artifact. IMPRESSION: Normal Lexiscan Myoview cardiac perfusion stress test. No evidence of ischemia or myocardial infarction by perfusion imaging. Normal left ventricular systolic function, ejection fraction 73%. When compared to a study from 2014, no significant interval changes were seen. Signed by: Víctor Wills 09/15/2024 6:03 PM Dictation workstation: [id number] [facility] Work Phone: [facility] Work Phone: Radiology Study observation (narrative) [facility] Work Phone: NUCLEAR STRESS TESTon 2024 NUCLEAR STRESS TEST Interpreted By: Víctor Gallegos and Giannuzzi Michael STUDY: MYOCARDIAL PERFUSION STRESS TEST WITH LEXISCAN Performing facility: [facility], [address] [place] [address], [address], [place] [address] [facility] Provider: Víctor Wills MD, [facility] PCP: Dr. Aleah Newell Supervising provider: Víctor Wills MD, [facility]ACC INDICATION: CAD; HLD HISTORY: Gender: F; Age: 79 y/o ; Height: HT 160 cm cm; Weight: WT 79.379 kg kg. High Cholesterol; CAD; HTN; Arrhythmias;A-fib ICM CHF MVR Quit smoking 38 years ago. Cardiac catheterization on 2023. PTCA on 2023. COMPARISON: Previous echo testing completed [id number] at [facility]. ACCESSION NUMBER(S): [id number] ORDERING CLINICIAN: VÍCTOR WILLS TECHNIQUE: ONE DAY protocol. Stress injection: Date:09-15-24, 32.5 mCi of Myoview IV 20 seconds after rapid injection of Lexiscan. Rest injection: Date: 09-15-24, 10.7 mCi of Myoview IV at rest. The patient had a rapid injection of 0.4 mg of Lexiscan IV over 10 seconds. Imaging was performed by gated tomographic technique. Reason for Lexiscan: dizziness/unsteady/fall risk STRESS TEST DATA: Resting heart rate was 51 BPM. Resting blood pressure was 122/70 mmHg. Peak blood pressure was 108/68 mmHg. Peak heart rate was 65 BPM. TEST TERMINATED DUE TO: Protocol completed FINDINGS: STRESS TEST RESULTS: Resting electrocardiogram revealed sinus bradycardia with PACs and diffuse repolarization abnormalities. There were no significant ischemic ECG changes or dysrhythmias. The patient did not have chest pains/symptoms during procedure. There was a normal recovery phase. IMAGING RESULTS: Image quality was good. Rest and stress tomographic images were reviewed and revealed normal perfusion without evidence of ischemia, myocardial infarction, or left ventricular dilatation with stress. Overall left ventricular systolic function appeared to be normal without regional wall motion abnormalities. Ejection fraction was 73%. TID is 1.0 and is normal. There was no evidence of attenuation artifact. IMPRESSION: Normal Lexiscan Myoview cardiac perfusion stress test. No evidence of ischemia or myocardial infarction by perfusion imaging. Normal left ventricular systolic function, ejection fraction 73%. When compared to a study from 2014, no significant interval changes were seen. Signed by: Víctor Wills 09/15/2024 6:03 PM Dictation workstation: [id number] [facility] Alanine aminotransferase [En zymatic activity/volume] in Serum or PlasmaOrdered By: Lion Shook on 08-29-2024 ALT [Catalytic activity/Vol] Alanine aminotransferase [Enzymatic activity/volume] in Serum or Plasma 7-52 [facility] Albumin [Mass/volume] in Ser um or Plasma by Bromocresol green (BCG) dye binding methoOrdered By: Lion Shook on 08-29-2024 Albumin BCG dye [Mass/Vol] Albumin [Mass/volume] in Serum or Plasma by Bromocresol green (BCG) dye binding metho 3.5-5.7 [facility] Alkaline phosphatase [Enzyma tic activity/volume] in Serum or PlasmaOrdered By: Lion Shook on 08-29-2024 ALP [Catalytic activity/Vol] Alkaline phosphatase [Enzymatic activity/volume] in Serum or Plasma 34-104 [facility] Aspartate aminotransferase [ Enzymatic activity/volume] in Serum or PlasmaOrdered By: Lion Shook on 08-29-2024 AST [Catalytic activity/Vol] Aspartate aminotransferase [Enzymatic activity/volume] in Serum or Plasma Low 13-39 [facility] Basophils Auto (Bld) [#/Vol] Ordered By: Lion Shook on 08-29-2024 Basophils (Bld) [#/Vol] Automated basophil count 0.0-0.2 [facility] Basophils/100 WBC Auto (Bld) Ordered By: Lion Shook on 08-29-2024 Basophils/100 WBC (Bld) Automated basophil % . [facility] Bilirubin.total [Mass/volume ] in Serum or PlasmaOrdered By: Lion Shook on 08-29-2024 Bilirubin [Mass/Vol] Bilirubin.total [Mass/volume] in Serum or Plasma 0.3-1.0 [facility] Calcium [Mass/volume] in Ser um or PlasmaOrdered By: Lion Shook on 08-29-2024 Calcium [Mass/Vol] Calcium [Mass/volume ] in Serum or Plasma 8.6-10.3 [facility] Carbon dioxide, total [Moles /volume] in Serum or PlasmaOrdered By: Lion Shook on 08-29-2024 CO2 [Moles/Vol] Carbon dioxide, tota l [Moles/volume] in Serum or Plasma 21.0-31.0 [facility] Chloride [Moles/volume] in S calli or PlasmaOrdered By: Lion Shook on 08-29-2024 Chloride [Moles/Vol] Chloride [Moles/vol ume] in Serum or Plasma 98-107 [facility] Cholesterol [Mass/volume] in Serum or PlasmaOrdered By: Lion Shook on 08-29-2024 Cholesterol [Mass/Vol] Cholesterol [Mass /volume] in Serum or Plasma Low 140-200 [facility] Comment on above: Chol less than 200 m g/dl low riskChol 201-239 mg/dl borderline riskChol 240 mg/dl and greater high risk Cholesterol in HDL [Mass/vol ume] in Serum or PlasmaOrdered By: Lion Shook on 08-29-2024 Cholesterol in HDL [Mass/Vol] Serum or plasma high density lipoprotein (HDL) cholesterol measurement 23-92 [facility] Comment on above: HDL CHOL ATP-III CLA SSIFICATION Cardiovascular RiskHDL > or equal to 60 mg/dL LOWHDL < 40 mg/dL HIGH Cholesterol in LDL Calc [Mas s/Vol]Ordered By: Lion Shook on 08-29-2024 Cholesterol in LDL [Mass/Vol] Cholesterol in LDL [Mass/volume] in Serum or Plasma by calculation 0-100 [facility] Comment on above: LDL ATP III CLASSIFI CATIONLDL less than 100 mg/dL OptimalLDL 100-129 mg/dL Near or above optimalLDL 130-159 mg/dL Borderline highLDL 160-189 mg/dL HighLDL greater than 189 mg/dL Very high Cholesterol in VLDL Calc [Ma ss/Vol]Ordered By: Lion Shook on 08-29-2024 Cholesterol in VLDL [Mass/Vol] Cholesterol in VLDL [Mass/volume] in Serum or Plasma by calculation [facility] Complete Blood Count Auto Di ffon 08-29-2024 Basophils (Bld) [#/Vol] 0.1 10*3/uL Normal 0.0-0.2 [facility] Comment on above: Result Comment: PERF ORMED BY: [place] [address] PATHOLOGIST CAMPUS ADMINISTRATOR PRO GOMEZ M.D. Performed By: #### T 4F, LIPID, T3F, TSH3, MG, CMP #### [address] Basophils/100 WBC (Bld) 0.9 % Normal . [facility] Comment on above: Performed By: #### T 4F, LIPID, T3F, TSH3, MG, CMP #### [address] Eosinophils (Bld) [#/Vol] 0.2 10*3/uL Normal 0.0-0.45 [facility] Comment on above: Performed By: #### T 4F, LIPID, T3F, TSH3, MG, CMP #### [address] Eosinophils/100 WBC (Bld) 2.0 % Normal . [facility] Comment on above: Performed By: #### T 4F, LIPID, T3F, TSH3, MG, CMP #### [address] Erythrocyte distribution width (RBC) [Ratio] 16.3 % High 11.9-15.3 [facility] Comment on above: Performed By: #### T 4F, LIPID, T3F, TSH3, MG, CMP #### [address] Hematocrit (Bld) [Volume fraction] 37.9 % Normal 34.0-46.4 [facility] Comment on above: Performed By: #### T 4F, LIPID, T3F, TSH3, MG, CMP #### [address] Hemoglobin (Bld) [Mass/Vol] 13.0 g/dL Normal 11.8-15.4 [facility] Comment on above: Performed By: #### T 4F, LIPID, T3F, TSH3, MG, CMP #### [address] Lymphocytes (Bld) [#/Vol] 1.5 10*3/uL Normal 1.00-4.8 [facility] Comment on above: Performed By: #### T 4F, LIPID, T3F, TSH3, MG, CMP #### [address] Lymphocytes/100 WBC (Bld) 19.2 % Normal . [facility] Comment on above: Performed By: #### T 4F, LIPID, T3F, TSH3, MG, CMP #### [address] MCH (RBC) [Entitic mass] 29.7 pg Normal 24.7-34.3 [facility] Comment on above: Performed By: #### T 4F, LIPID, T3F, TSH3, MG, CMP #### [address] MCV (RBC) [Entitic vol] 86.2 fL Normal 80-100 [facility] Comment on above: Performed By: #### T 4F, LIPID, T3F, TSH3, MG, CMP #### [address] Mean Corpuscular HGB Conc 34.5 g/dL Normal 32.0-35.0 [facility] Comment on above: Performed By: #### T 4F, LIPID, T3F, TSH3, MG, CMP #### [address] Monocytes (Bld) [#/Vol] 1.2 10*3/uL High 0.0-0.8 [facility] Comment on above: Performed By: #### T 4F, LIPID, T3F, TSH3, MG, CMP #### [address] Monocytes/100 WBC (Bld) 15.4 % Normal . [facility] Comment on above: Performed By: #### T 4F, LIPID, T3F, TSH3, MG, CMP #### [address] Neutrophils (Bld) [#/Vol] 4.9 10*3/uL Normal 1.8-7.7 [facility] Comment on above: Performed By: #### T 4F, LIPID, T3F, TSH3, MG, CMP #### [address] Neutrophils/100 WBC (Bld) 62.5 % Normal . [facility] Comment on above: Performed By: #### T 4F, LIPID, T3F, TSH3, MG, CMP #### [address] NRBC% 0.1 /100{WBC} Normal 0-0.5 [facility] Comment on above: Performed By: #### T 4F, LIPID, T3F, TSH3, MG, CMP #### [address] Platelet mean volume (Bld) [Entitic vol] 8.5 fL Normal 6.3-10.7 [facility] Comment on above: Performed By: #### T 4F, LIPID, T3F, TSH3, MG, CMP #### [address] Platelets (Bld) [#/Vol] 251 10*3/uL Normal 150-450 [facility] Comment on above: Performed By: #### T 4F, LIPID, T3F, TSH3, MG, CMP #### [place] [address] [place] RBC (Bld) [#/Vol] 4.39 10*6/uL Normal 3.60-5.00 [facility] Comment on above: Performed By: #### T 4F, LIPID, T3F, TSH3, MG, CMP #### [address] WBC (Bld) [#/Vol] 7.9 10*3/uL Normal 3.8-11.6 [facility] Comment on above: Performed By: #### T 4F, LIPID, T3F, TSH3, MG, CMP #### [address] Comprehensive Metabolic Pane anselmo 08-29-2024 Albumin [Mass/Vol] 3.7 g/dL Normal 3.5-5.7 [facility] Comment on above: Performed By: #### T 4F, LIPID, T3F, TSH3, MG, CMP #### [address] Albumin/Globulin [Mass ratio] 1.3 {ratio} Normal [facility] Comment on above: Performed By: #### T 4F, LIPID, T3F, TSH3, MG, CMP #### [address] ALP [Catalytic activity/Vol] 97 U/L Normal 34-104 [facility] Comment on above: Performed By: #### T 4F, LIPID, T3F, TSH3, MG, CMP #### [address] ALT [Catalytic activity/Vol] 11 U/L Normal 7-52 [facility] Comment on above: Performed By: #### T 4F, LIPID, T3F, TSH3, MG, CMP #### [address] Anion gap [Moles/Vol] 13.3 mmol/L Normal 6.0-15.0 [facility] Comment on above: Performed By: #### T 4F, LIPID, T3F, TSH3, MG, CMP #### [address] AST [Catalytic activity/Vol] 12 U/L Low 13-39 [facility] Comment on above: Performed By: #### T 4F, LIPID, T3F, TSH3, MG, CMP #### [address] Bilirubin [Mass/Vol] 0.9 mg/dL Normal 0.3-1.0 [facility] Comment on above: Performed By: #### T 4F, LIPID, T3F, TSH3, MG, CMP #### [address] Calcium [Mass/Vol] 9.3 mg/dL Normal 8.6-10.3 [facility] Comment on above: Performed By: #### T 4F, LIPID, T3F, TSH3, MG, CMP #### [address] Chloride [Moles/Vol] 102 mmol/L Normal 98-107 [facility] Comment on above: Performed By: #### T 4F, LIPID, T3F, TSH3, MG, CMP #### [address] CO2 [Moles/Vol] 25.8 mmol/L Normal 21.0-31.0 [facility] Comment on above: Performed By: #### T 4F, LIPID, T3F, TSH3, MG, CMP #### [address] Creatinine [Mass/Vol] 1.20 mg/dL Normal 0.60-1.20 [facility] Comment on above: Performed By: #### T 4F, LIPID, T3F, TSH3, MG, CMP #### [address] Creatinine Clr Calc Pharmacy 37.87 Normal [facility] Comment on above: Performed By: #### T 4F, LIPID, T3F, TSH3, MG, CMP #### [address] Estimated GFR 46.333 mL/Min Normal [facility] Comment on above: Performed By: #### T 4F, LIPID, T3F, TSH3, MG, CMP #### [address] Globulin (S) [Mass/Vol] 2.9 g/dL Normal [facility] Comment on above: Performed By: #### T 4F, LIPID, T3F, TSH3, MG, CMP #### [address] Glucose [Mass/Vol] 100 mg/dL Normal 70-100 [facility] Comment on above: Result Comment: [facility] Glucose Reference Range is dependent on time and content of last meal. Glucose of more than 200 mg/dL in a nonstressed, ambulatory subject supports the diagnosis of Diabetes Mellitus. ADA recommended reference range Performed By: #### T 4F, LIPID, T3F, TSH3, MG, CMP #### [address] Potassium [Moles/Vol] 4.1 mmol/L Normal 3.5-5.1 [facility] Comment on above: Performed By: #### T 4F, LIPID, T3F, TSH3, MG, CMP #### [address] Protein [Mass/Vol] 6.6 g/dL Normal 6.4-8.9 [facility] Comment on above: Performed By: #### T 4F, LIPID, T3F, TSH3, MG, CMP #### [address] Sodium [Moles/Vol] 137 mmol/L Normal 136-145 [facility] Comment on above: Performed By: #### T 4F, LIPID, T3F, TSH3, MG, CMP #### [address] Urea nitrogen [Mass/Vol] 23 mg/dL Normal 7-25 [facility] Comment on above: Performed By: #### T 4F, LIPID, T3F, TSH3, MG, CMP #### [address] Creatinine [Mass/volume] in Serum or PlasmaOrdered By: Lion Shook on 08-29-2024 Creatinine [Mass/Vol] Creatinine [Mass/v olume] in Serum or Plasma 0.60-1.20 [facility] Eosinophils Auto (Bld) [#/Vo l]Ordered By: Lion Shook on 08-29-2024 Eosinophils (Bld) [#/Vol] Automated eosinophil count 0.0-0.45 [facility] Eosinophils/100 WBC Auto (Bl d)Ordered By: Lion Shook on 08-29-2024 Eosinophils/100 WBC (Bld) Automated eosinophil % . [facility] Erythrocyte distribution wid th Auto (RBC) [Ratio]Ordered By: Lion Shook on 08-29-2024 Erythrocyte distribution width (RBC) [Ratio] Erythrocyte distribution width [Ratio] by Automated count High 11.9-15.3 [facility] Free T4 (Free Thyroxine)on 0 08-29-2024 Free T4 [Mass/Vol] 0.99 ng/dL Normal 0.61-1.12 [facility] Comment on above: Performed By: #### T 4F, LIPID, T3F, TSH3, MG, CMP #### [facility] [place] [address] Globulin Calc (S) [Mass/Vol] Ordered By: Lion Shook on 08-29-2024 Globulin (S) [Mass/Vol] Serum globulin measurement by calculation (mass/volume) [facility] Glucose [Mass/volume] in Ser um or PlasmaOrdered By: Lion Shook on 08-29-2024 Glucose [Mass/Vol] Glucose [Mass/volume ] in Serum or Plasma 70-100 [facility] Comment on above: ADA recommended refe rence rangeRandom Glucose Reference Range is dependent on time and content of last meal. Glucose of more than 200 mg/dL in a nonstressed, ambulatory subject supports the diagnosis of Diabetes Mellitus. Hematocrit Auto (Bld) [Volum e fraction]Ordered By: Lion Shook on 08-29-2024 Hematocrit (Bld) [Volume fraction] Hematocrit [Volume Fraction] of Blood by Automated count 34.0-46.4 [facility] Hemoglobin [Mass/volume] in BloodOrdered By: Lion Shook on 08-29-2024 Hemoglobin (Bld) [Mass/Vol] Hemoglobin [Mass/volume] in Blood 11.8-15.4 [facility] INR in Platelet poor plasma by Coagulation assayOrdered By: Lion Shook on 08-29-2024 INR Coag (PPP) [Relative time] INR in Platelet poor plasma by Coagulation assay [facility] Comment on above: INR Therapeutic Rang e A) Pre- and Peroperative OAT started two weeks before surgery. NOT HIP SURGERY: 1.5 - 2.5 HIP SURGERY: 2 - 3B) Primary and secondary prevention of venous THROMBOSIS: 2 - 3C) Active venous thrombosis, pulmonary embolismand prevention of recurrent venous thrombosis: 2 - 3D) Prevention of arterial thromboembolismincluding patients with mechanical heart valves: 3 - 4.5 Leukocytes [#/volume] correc mayda for nucleated erythrocytes in Blood by Automated counOrdered By: Lion Shook on 08-29-2024 WBC corrected for nucl RBC Auto (Bld) [#/Vol] Leukocytes [#/volume] corrected for nucleated erythrocytes in Blood by Automated coun 3.8-11.6 [facility] Lipid Panelon 08-29-2024 Cholesterol [Mass/Vol] 91 mg/dL Low 140-200 [facility] Comment on above: Result Comment: Chol less than 200 mg/dl low risk Chol 201-239 mg/dl borderline risk Chol 240 mg/dl and greater high risk Performed By: #### T 4F, LIPID, T3F, TSH3, MG, CMP #### [facility] [address] [place] [address] [place] Cholesterol in HDL [Mass/Vol] 41 mg/dL Normal 23-92 [facility] Comment on above: Result Comment: HDL CHOL ATP-III CLASSIFICATION Cardiovascular Risk HDL > or equal to 60 mg/dL LOW HDL < 40 mg/dL HIGH Performed By: #### T 4F, LIPID, T3F, TSH3, MG, CMP #### [facility] [address] [place] [id number] [facility] Cholesterol.total/Chol esterol in HDL [Mass ratio] 2.2 {ratio} Normal <5.0 [facility] Comment on above: Performed By: #### T 4F, LIPID, T3F, TSH3, MG, CMP #### [facility] [address] [place] [id number] [facility] LDL Cholesterol,Calculated 29 mg/dL Normal 0-100 [facility] Comment on above: Result Comment: LDL ATP III CLASSIFICATION LDL less than 100 mg/dL Optimal LDL 100-129 mg/dL Near or above optimal LDL 130-159 mg/dL Borderline high LDL 160-189 mg/dL High LDL greater than 189 mg/dL Very high Performed By: #### T 4F, LIPID, T3F, TSH3, MG, CMP #### [facility] [address] Triglyceride w/Reflex 107 mg/dL Normal 0-149 [facility] Comment on above: Result Comment: TRIG ATP III CLASSIFICATION TRIG less than 150 mg/dL Normal TRIG 150-199 mg/dL Borderline high TRIG 200-500 mg/dL High TRIG greater than 500 mg/dL Very high Standard traceable to the Center for Disease Conrtrol and Prevention (CDC) test method. Performed By: #### T 4F, LIPID, T3F, TSH3, MG, CMP #### [facility] [address] VLDL CHOLESTEROL 21 mg/dL Normal [facility] Comment on above: Performed By: #### T 4F, LIPID, T3F, TSH3, MG, CMP #### [facility] [address] Lymphocytes Auto (Bld) [#/Vo l]Ordered By: Lion Shook on 08-29-2024 Lymphocytes (Bld) [#/Vol] Lymphocytes [#/volume] in Blood by Automated count 1.00-4.8 [facility] Lymphocytes/100 WBC Auto (Bl d)Ordered By: Lion Shook on 08-29-2024 Lymphocytes/100 WBC (Bld) Lymphocytes/100 leukocytes in Blood by Automated count . [facility] MCH Auto (RBC) [Entitic mass ]Ordered By: Lion Shook on 08-29-2024 MCH (RBC) [Entitic mass] MCH [Entitic mass] by Automated count 24.7-34.3 [facility] MCHC Auto (RBC) [Mass/Vol]Or dered By: Lion Shook on 08-29-2024 MCHC (RBC) [Mass/Vol] MCHC [Mass/volume] by Automated count 32.0-35.0 [facility] MCV Auto (RBC) [Entitic vol] Ordered By: Lion Shook on 08-29-2024 MCV (RBC) [Entitic vol] MCV [Entitic volume] by Automated count 80-100 [facility] Magnesiumon 08-29-2024 Magnesium [Mass/Vol] 1.7 mg/dL Low 1.9-2.7 [facility] Comment on above: Performed By: #### T 4F, LIPID, T3F, TSH3, MG, CMP #### [facility] [address] Magnesium [Mass/volume] in S calli or PlasmaOrdered By: Lion Shook on 08-29-2024 Magnesium [Mass/Vol] Magnesium [Mass/vol ume] in Serum or Plasma Low 1.9-2.7 [facility] Monocytes Auto (Bld) [#/Vol] Ordered By: Lion Shook on 08-29-2024 Monocytes (Bld) [#/Vol] Automated blood monocyte count High 0.0-0.8 [facility] Monocytes/100 WBC Auto (Bld) Ordered By: Lion Shook on 08-29-2024 Monocytes/100 WBC (Bld) Automated monocyte % . [facility] Neutrophils Auto (Bld) [#/Vo l]Ordered By: Lion Shook on 08-29-2024 Neutrophils (Bld) [#/Vol] Neutrophils [#/volume] in Blood by Automated count 1.8-7.7 [facility] Neutrophils/100 WBC Auto (Bl d)Ordered By: Lion Shook on 08-29-2024 Neutrophils/100 WBC (Bld) Automated neutrophil % . [facility] No Panel InformationOrdered By: Lion Shook on 08-29-2024 Estimated GFR (CKD-EPI) 46.333 mL/Min [facility] Creatinine Clearance (Chem 37.87 [facility] Nucleated erythrocytes [Pres ence] in Blood by Automated countOrdered By: Lion Shook on 08-29-2024 Nucleated RBC Auto Ql (Bld) Nucleated erythrocytes [Presence] in Blood by Automated count 0-0.5 [facility] Platelet mean volume Auto (B ld) [Entitic vol]Ordered By: Lion Shook on 01-19-2025 Platelet mean volume (Bld) [Entitic vol] Platelet mean volume [Entitic volume] in Blood by Automated count 6.3-10.7 [facility] Platelets Auto (Bld) [#/Vol] Ordered By: Lion Shook on 08-29-2024 Platelets (Bld) [#/Vol] Platelets [#/volume] in Blood by Automated count 150-450 [facility] Potassium [Moles/volume] in Serum or PlasmaOrdered By: Lion Shook on 08-29-2024 Potassium [Moles/Vol] Potassium [Moles/v olume] in Serum or Plasma 3.5-5.1 [facility] Protein [Mass/volume] in Ser um or PlasmaOrdered By: Lion Shook on 08-29-2024 Protein [Mass/Vol] Protein [Mass/volume ] in Serum or Plasma 6.4-8.9 [facility] Prothrombin Time INRon 08-29 INR Coag (PPP) [Relative time] 4.4 {INR} Normal [facility] Comment on above: Result Comment: INR Therapeutic Range A) Pre- and Peroperative OAT started two weeks before surgery. NOT HIP SURGERY: 1.5 - 2.5 HIP SURGERY: 2 - 3 B) Primary and secondary prevention of venous THROMBOSIS: 2 - 3 C) Active venous thrombosis, pulmonary embolism and prevention of recurrent venous thrombosis: 2 - 3 D) Prevention of arterial thromboembolism including patients with mechanical heart valves: 3 - 4.5 PERFORMED BY: [place] [address] PATHOLOGIST CAMPUS ADMINISTRATOR PRO GOMEZ M.D. Performed By: #### P T #### [facility] [address] [place] [address] PT Coag (PPP) [Time] 48.7 s High 9.0-12.9 [facility] Comment on above: Result Comment: A he matocrit value greater than 55% may lead to inaccurate results in coagulation testing. Patients having hematocrit values >55% require a special collection tube for coagulation studies. Please contact the laboratory at [phone] for redraw instructions. Performed By: #### P T #### [facility] [address] [place] [id number] [facility] Prothrombin time (PT)Ordered By: Lion Shook on 08-29-2024 PT Coag (PPP) [Time] Prothrombin time (PT) High 9.0- 12.9 [facility] Comment on above: A hematocrit value g reater than 55% may lead to inaccurate results in coagulation testing. Patients having hematocrit values >55% require a special collection tube for coagulation studies. Please contact the laboratory at [phone] for redraw instructions. RBC Auto (Bld) [#/Vol]Ordere d By: Lion Shook on 08-29-2024 RBC (Bld) [#/Vol] Erythrocytes [#/volu me] in Blood by Automated count 3.60-5.00 [facility] Serum or plasma albumin/glob ulin mass ratioOrdered By: Lion Shook on 08-29-2024 Albumin/Globulin [Mass ratio] Serum or plasma albumin/globulin mass ratio [facility] Serum or plasma anion gap de terminationOrdered By: Lion Shook on 08-29-2024 Anion gap [Moles/Vol] Serum or plasma an ion gap determination 6.0-15.0 [facility] Serum or plasma total choles terol/high density lipoprotein (HDL) cholesterol mass ratOrdered By: Lion Shook on 08-29-2024 Cholesterol.total/Chol esterol in HDL [Mass ratio] Serum or plasma total cholesterol/high density lipoprotein (HDL) cholesterol mass rat <5.0 [facility] Sodium [Moles/volume] in Ser um or PlasmaOrdered By: Lion Shook on 08-29-2024 Sodium [Moles/Vol] Sodium [Moles/volume ] in Serum or Plasma 136-145 [facility] Thyroid Stimulating Hormoneo n 08-29-2024 TSH Qn 2.68 m[IU]/L Normal 0.45-5.33 [facility] Comment on above: Result Comment: PERF ORMED BY: [facility] [address] [place] [address] PATHOLOGIST CAMPUS ADMINISTRATOR PRO GOMEZ M.D. Performed By: #### T 4F, LIPID, T3F, TSH3, MG, CMP #### [facility] [address] Thyrotropin [Units/volume] i n Serum or PlasmaOrdered By: Lion Shook on 08-29-2024 TSH Qn Thyrotropin [Units/v olume] in Serum or Plasma 0.45-5.33 [facility] Thyroxine (T4) free [Mass/vo lume] in Serum or PlasmaOrdered By: Lion Shook on 08-29-2024 Free T4 [Mass/Vol] Thyroxine (T4) free [Mass/volume] in Serum or Plasma 0.61-1.12 [facility] Triglyceride [Mass/volume] i n Serum or PlasmaOrdered By: Lion Shook on 08-29-2024 Triglyceride [Mass/Vol] Triglyceride [Mass/volume] in Serum or Plasma 0-149 [facility] Comment on above: TRIG ATP III CLASSIF ICATIONTRIG less than 150 mg/dL NormalTRIG 150-199 mg/dL Borderline highTRIG 200-500 mg/dL High TRIG greater than 500 mg/dL Very highStandard traceable to the Center for Disease Conrtrol and Prevention (CDC) test method. Triiodothyronine (T3) Freeon 08-29-2024 Triiodothyronine (T3) Free 2.55 pg/mL Normal 2.50-3.90 [facility] Comment on above: Result Comment: PERF ORMED BY: [facility] [address] [place] [address] PATHOLOGIST CAMPUS ADMINISTRATOR PRO GOMEZ M.D. Performed By: #### T 4F, LIPID, T3F, TSH3, MG, CMP #### [facility] [address] Triiodothyronine (T3) Free [ Mass/volume] in Serum or PlasmaOrdered By: Lion Shook on 08-29-2024 Free T3 [Mass/Vol] Triiodothyronine (T3 ) Free [Mass/volume] in Serum or Plasma 2.50-3.90 [facility] Urea nitrogen [Mass/volume] in Serum or PlasmaOrdered By: Lion Shook on 08-29-2024 Urea nitrogen [Mass/Vol] Urea nitrogen [Mass/volume] in Serum or Plasma 7-25 [facility] WBC Auto (Bld) [#/Vol]Ordere d By: Lion Shook on 08-29-2024 WBC (Bld) [#/Vol] Leukocytes [#/volume ] in Blood by Automated count 3.8-11.6 [facility] Alanine aminotransferase [En zymatic activity/volume] in Serum or PlasmaOrdered By: Bernardo Russell on 08-28-2024 ALT [Catalytic activity/Vol] Alanine aminotransferase [Enzymatic activity/volume] in Serum or Plasma 7-52 [facility] Albumin [Mass/volume] in Ser um or Plasma by Bromocresol green (BCG) dye binding methoOrdered By: Bernardo Russell on 08-28-2024 Albumin BCG dye [Mass/Vol] Albumin [Mass/volume] in Serum or Plasma by Bromocresol green (BCG) dye binding metho 3.5-5.7 [facility] Alkaline phosphatase [Enzyma tic activity/volume] in Serum or PlasmaOrdered By: Bernardo Russell on 08-28-2024 ALP [Catalytic activity/Vol] Alkaline phosphatase [Enzymatic activity/volume] in Serum or Plasma 34-104 [facility] Appearance of UrineOrdered B y: Bernardo Russell on 08-28-2024 Appearance (U) Urine appearance Abnormal [facility] Aspartate aminotransferase [ Enzymatic activity/volume] in Serum or PlasmaOrdered By: Bernardo Russell on 08-28-2024 AST [Catalytic activity/Vol] Aspartate aminotransferase [Enzymatic activity/volume] in Serum or Plasma Low 13-39 [facility] B-Type Natriuretic Peptideon 08-28-2024 Natriuretic peptide B (Bld) [Mass/Vol] 1127.0 pg/mL High 5-100 [facility] Comment on above: Result Comment: PERF ORMED BY: [facility] [address] [place] [address] PATHOLOGIST CAMPUS ADMINISTRATOR PRO GOMEZ M.D. Performed By: #### T 4F, LIPID, T3F, TSH3, MG, CMP #### [facility] [address] [place] [id number] [facility] Bacteria [Presence] in Urine by AutomatedOrdered By: Bernardo Russell on 08-28-2024 Bacteria Auto Ql (U) Bacteria [Presence] in Urine by Automated None Seen [facility] Bilirubin Test strip Ql (U)O rdered By: Bernardo Russell on 08-28-2024 Bilirubin Ql (U) Bilirubin.total [Pre sence] in Urine by Test strip Negative [facility] Bilirubin.total [Mass/volume ] in Serum or PlasmaOrdered By: Bernardo Russell on 08-28-2024 Bilirubin [Mass/Vol] Bilirubin.total [Mass/volume] in Serum or Plasma High 0.3-1.0 [facility] Comment on above: Samples from patient s who have taken Naproxen have shown spurious elevation in Total Bilirubin levels. A metabolite of Naproxen, O-desmethylnaproxen, has been shown to interfere with the Shine-Breanne method for measuring Total Bilirubin. COVID Cepheid NegativeOrdere d By: Bernardo Russell on 08-28-2024 SARS-CoV-2 (COVID-19) Ab IA Ql COVID Cepheid Negative [facility] Comment on above: This is a duplicate Cepheid Xpert Xpress CoV-2/Flu/RSV Plus RNA by RT-PCR result to be used for statistical tracking purpose only. COVID-19 / Flu A/B / RSV PCR on 08-28-2024 SARS-CoV-2 (COVID-19) RNA ERICK+probe Ql (Unsp spec) COVID-19 Cepheid Result Negative for SARS-CoV-2 RNA by RT-PCR Flu A Cepheid Result Negative for Flu A RNA by RT-PCR Flu B Cepheid Result Negative for Flu B RNA by RT-PCR RSV Cepheid Result Negative for RSV RNA by RT-PCR COVID19 Blank Space -- Reference: Negative COVID19 Blank Space -- Cepheid Disclaimer The Cepheid Xpert Xpress CoV-2/Flu/RSV Plus has Cepheid Disclaimer not been FDA cleared or approved; this test has Cepheid Disclaimer been authorized by FDA under an EUA for use by Cepheid Disclaimer authorized laboratories; this test has been Cepheid Disclaimer authorized only for the simultaneous qualitative Cepheid Disclaimer detection and differentiation of nucleic acids from Cepheid Disclaimer SARS-CoV-2, influenza A, influenza B, and Cepheid Disclaimer respiratory syncytial virus (RSV), and not for any Cepheid Disclaimer other viruses or pathogens; and this test is only Cepheid Disclaimer authorized for the duration of the declaration that Cepheid Disclaimer circumstances exist justifying the authorization of Cepheid Disclaimer emergency use of in vitro diagnostic tests for Cepheid Disclaimer detection and/or diagnosis of COVID-19 under Cepheid Disclaimer Section 564(b)(1) of the Act, 21 U.S.C. 360bbb- Cepheid Disclaimer 3(b)(1), unless the authorization is terminated or Cepheid Disclaimer revoked sooner. PERFORMED BY: [place] [address] PATHOLOGIST CAMPUS ADMINISTRATOR PRO Rose [facility] Comment on above: Performed By: #### T 4F, LIPID, T3F, TSH3, MG, CMP #### [address] abdomen pelvis w [facility] CT abdomen pelvis w [facility] [place] [address] CT Scan Report Signed Patient: Cece Hubbard MR#: [id number] 1827 : 1945 Acct:[id number] Age/Sex: 79 / F ADM Date: 08/28/24 Loc: ER Room: Type: [facility] ER Attending Dr: Copies to: Bernardo Russell DO Ordering Provider: Bernardo Russell DO Date of Service: 08/28/24 CT/CT abdomen pelvis w con: f CT ABDOMEN AND PELVIS WITH INTRAVENOUS CONTRAST: CLINICAL HISTORY: Shortness breath, nausea, atrial fibrillation COMPARISON: None TECHNIQUE: Spiral images were obtained through the abdomen and pelvis following the administration of intravenous contrast. This CT exam was performed using one or more following dose reduction techniques: Automated exposure control, adjustment of the mA and/or kV according to patient size, or use of iterative reconstruction technique. FINDINGS: Lung Bases: [Right basilar atelectasis and small to moderate size right-sided effusion. Trace left- sided effusion]. Heart appears mildly enlarged. Organs:The liver, gallbladder, spleen, adrenal glands, kidneys, and pancreas are unremarkable.[ GI: Mild retained stool throughout the colon. No evidence of bowel obstruction. Appendix is not visualized. No pericecal inflammatory changes Pelvis:[Uterus appears unremarkable. No adnexal mass. Minimal anterior bladder wall thickening possibly due to under distention. Peritoneum/Retroperitoneum :No free air or free fluid. Aorta is normal in caliber with mild scattered plaque. Abd wall/Bones:Tiny fat-containing umbilical hernia. The postsurgical changes status post L3-L5 posterior lumbar instrumentation with Junction degenerative changes greatest at L2-L3.[ CT/CT abdomen pelvis w con IMPRESSION: Negative acute inflammatory process or bowel obstruction. Right lung atelectasis and small to moderate size right-sided effusion partially visualized. Impression dictated by: Elvin Cantu M.D.08/28/2024 3:28 PM Dictation Location: [place] [address] Transcribed By: [facility] 08/28/24 1528 Dictated By: Elvin Cantu MD 08/28/24 1514 Signed By: 08/28/24 1528 Normal [facility] Calcium [Mass/volume] in Ser um or PlasmaOrdered By: Bernardo Russell on 08-28-2024 Calcium [Mass/Vol] Calcium [Mass/volume ] in Serum or Plasma 8.6-10.3 [facility] Carbon dioxide, total [Moles /volume] in Serum or PlasmaOrdered By: Bernardo Russell on 08-28-2024 CO2 [Moles/Vol] Carbon dioxide, tota l [Moles/volume] in Serum or Plasma 21.0-31.0 [facility] Cepheid COVID PCR Negativeon 08-28-2024 SARS-CoV-2 (COVID-19) RNA ERICK+probe Ql (Unsp spec) Negative Normal Negative [facility] Comment on above: Result Comment: This is a duplicate [email or web address] Xpert Xpress CoV-2/Flu/RSV Plus RNA by RT-PCR result to be used for statistical tracking purpose only. PERFORMED BY: [place] [address] PATHOLOGIST CAMPUS ADMINISTRATOR PRO GOMEZ M.D. Performed By: #### T 4F, LIPID, T3F, TSH3, MG, CMP #### [place] [address] [place] Chloride [Moles/volume] in S calli or PlasmaOrdered By: Bernardo Russell on 08-28-2024 Chloride [Moles/Vol] Chloride [Moles/vol ume] in Serum or Plasma 98-107 [facility] Color Auto (U)Ordered By: Jose Russell on 08-28-2024 Color (U) Color of Urine by Auto Yellow Fi [facility] Comprehensive Metabolic Pane anselmo 08-28-2024 Albumin [Mass/Vol] 3.9 g/dL Normal 3.5-5.7 [facility] Comment on above: Performed By: #### T 4F, LIPID, T3F, TSH3, MG, CMP #### [address] Albumin/Globulin [Mass ratio] 1.3 {ratio} Normal [facility] Comment on above: Performed By: #### T 4F, LIPID, T3F, TSH3, MG, CMP #### [address] ALP [Catalytic activity/Vol] 104 U/L Normal 34-104 [facility] Comment on above: Performed By: #### T 4F, LIPID, T3F, TSH3, MG, CMP #### [address] ALT [Catalytic activity/Vol] 13 U/L Normal 7-52 [facility] Comment on above: Performed By: #### T 4F, LIPID, T3F, TSH3, MG, CMP #### [address] Anion gap [Moles/Vol] 13.5 mmol/L Normal 6.0-15.0 [facility] Comment on above: Performed By: #### T 4F, LIPID, T3F, TSH3, MG, CMP #### [address] AST [Catalytic activity/Vol] 12 U/L Low 13-39 [facility] Comment on above: Performed By: #### T 4F, LIPID, T3F, TSH3, MG, CMP #### [address] Bilirubin [Mass/Vol] 1.4 mg/dL High 0.3-1.0 [facility] Comment on above: Result Comment: Samp les from patients who have taken Naproxen have shown spurious elevation in Total Bilirubin levels. A metabolite of Naproxen, O-desmethylnaproxen, has been shown to interfere with the Mayteik-Breanne method for measuring Total Bilirubin. Performed By: #### T 4F, LIPID, T3F, TSH3, MG, CMP #### [address] Calcium [Mass/Vol] 9.4 mg/dL Normal 8.6-10.3 [facility] Comment on above: Performed By: #### T 4F, LIPID, T3F, TSH3, MG, CMP #### [address] Chloride [Moles/Vol] 104 mmol/L Normal 98-107 [facility] Comment on above: Performed By: #### T 4F, LIPID, T3F, TSH3, MG, CMP #### [address] CO2 [Moles/Vol] 23.6 mmol/L Normal 21.0-31.0 [facility] Comment on above: Performed By: #### T 4F, LIPID, T3F, TSH3, MG, CMP #### [address] Creatinine [Mass/Vol] 1.16 mg/dL Normal 0.60-1.20 [facility] Comment on above: Performed By: #### T 4F, LIPID, T3F, TSH3, MG, CMP #### [address] Creatinine Clr Calc Pharmacy 40.65 Normal [facility] Comment on above: Result Comment: PERF ORMED BY: [place] [address] PATHOLOGIST CAMPUS ADMINISTRATOR PRO GOMEZ M.D. Performed By: #### T 4F, LIPID, T3F, TSH3, MG, CMP #### [address] Estimated GFR 48.257 mL/Min Normal [facility] Comment on above: Performed By: #### T 4F, LIPID, T3F, TSH3, MG, CMP #### [address] Globulin (S) [Mass/Vol] 3.1 g/dL Normal [facility] Comment on above: Performed By: #### T 4F, LIPID, T3F, TSH3, MG, CMP #### [address] Glucose [Mass/Vol] 96 mg/dL Normal 70-100 [facility] Comment on above: Result Comment: [place] Glucose Reference Range is dependent on time and content of last meal. Glucose of more than 200 mg/dL in a nonstressed, ambulatory subject supports the diagnosis of Diabetes Mellitus. ADA recommended reference range Performed By: #### T 4F, LIPID, T3F, TSH3, MG, CMP #### [address] Potassium [Moles/Vol] 4.1 mmol/L Normal 3.5-5.1 [facility] Comment on above: Performed By: #### T 4F, LIPID, T3F, TSH3, MG, CMP #### [address] Protein [Mass/Vol] 7.0 g/dL Normal 6.4-8.9 [facility] Comment on above: Performed By: #### T 4F, LIPID, T3F, TSH3, MG, CMP #### [facility] [address] Sodium [Moles/Vol] 137 mmol/L Normal 136-145 [facility] Comment on above: Performed By: #### T 4F, LIPID, T3F, TSH3, MG, CMP #### [facility] [address] Urea nitrogen [Mass/Vol] 18 mg/dL Normal 7-25 [facility] Comment on above: Performed By: #### T 4F, LIPID, T3F, TSH3, MG, CMP #### [address] Creatinine [Mass/volume] in Serum or PlasmaOrdered By: Bernardo Russell on 08-28-2024 Creatinine [Mass/Vol] Creatinine [Mass/v olume] in Serum or Plasma 0.60-1.20 [facility] Crystals [Presence] in Urine by AutomatedOrdered By: Bernardo Russell on 08-28-2024 Crystals Auto Ql (U) Crystals [Presence] in Urine by Automated [facility] Dipstick and Microscopicon 0 08-28-2024 Appearance (U) Cloudy Critically abnormal Clear [facility] Comment on above: Order Comment: Name Collection Type:: Clean-Voided Midstream Performed By: #### T 4F, LIPID, T3F, TSH3, MG, CMP #### [place] [address] [place] Bacteria,Urine Rare Normal None Seen [facility] Comment on above: Order Comment: Name Collection Type:: Clean-Voided Midstream Performed By: #### T 4F, LIPID, T3F, TSH3, MG, CMP #### [place] [address] [place] Bilirubin,Urine Negative Normal Negative [facility] Comment on above: Order Comment: Name Collection Type:: Clean-Voided Midstream Performed By: #### T 4F, LIPID, T3F, TSH3, MG, CMP #### [address] Color (U) Yellow Normal Yellow [facility] Comment on above: Order Comment: Name Collection Type:: Clean-Voided Midstream Performed By: #### T 4F, LIPID, T3F, TSH3, MG, CMP #### [address] Glucose Ql (U) Normal Normal Normal [facility] Comment on above: Order Comment: Name Collection Type:: Clean-Voided Midstream Performed By: #### T 4F, LIPID, T3F, TSH3, MG, CMP #### [address] Hyaline Casts,Urine 0 [LPF] Normal 0-8 [facility] Comment on above: Order Comment: Name Collection Type:: Clean-Voided Midstream Performed By: #### T 4F, LIPID, T3F, TSH3, MG, CMP #### [address] Ketones Ql (U) Negative Normal Negative [facility] Comment on above: Order Comment: Name Collection Type:: Clean-Voided Midstream Performed By: #### T 4F, LIPID, T3F, TSH3, MG, CMP #### [address] Leukocyte esterase Test strip Ql (U) 2+ High Negative [facility] Comment on above: Order Comment: Name Collection Type:: Clean-Voided Midstream Performed By: #### T 4F, LIPID, T3F, TSH3, MG, CMP #### [address] Mucus,Urine 1+ Critically abnormal [facility] Comment on above: Order Comment: Name Collection Type:: Clean-Voided Midstream Result Comment: PERF ORMED BY: [place] [address] PATHOLOGIST CAMPUS ADMINISTRATOR PRO GOMEZ M.D. Performed By: #### T 4F, LIPID, T3F, TSH3, MG, CMP #### [place] [address] [place] Nitrite,Urine Negative Normal Negative [facility] Comment on above: Order Comment: Name Collection Type:: Clean-Voided Midstream Performed By: #### T 4F, LIPID, T3F, TSH3, MG, CMP #### [address] Occult Blood,Urine Negative Normal Negative [facility] Comment on above: Order Comment: Name Collection Type:: Clean-Voided Midstream Result Comment: PERF ORMED BY: [place] [address] PATHOLOGIST CAMPUS ADMINISTRATOR PRO GOMEZ M.D. Performed By: #### T 4F, LIPID, T3F, TSH3, MG, CMP #### [address] Othe Crystals,Urine Rare Normal [facility] Comment on above: Order Comment: Name Collection Type:: Clean-Voided Midstream Performed By: #### T 4F, LIPID, T3F, TSH3, MG, CMP #### [address] pH (U) 5.5 [pH] Normal 5.0-9.0 [facility] Comment on above: Order Comment: Name Collection Type:: Clean-Voided Midstream Performed By: #### T 4F, LIPID, T3F, TSH3, MG, CMP #### [address] Protein (U) [Mass/Vol] 50 mg/dL High Negative [facility] Comment on above: Order Comment: Name Collection Type:: Clean-Voided Midstream Performed By: #### T 4F, LIPID, T3F, TSH3, MG, CMP #### [address] RBC,Urine 5 [HPF] High 0-4 [facility] Comment on above: Order Comment: Name Collection Type:: Clean-Voided Midstream Performed By: #### T 4F, LIPID, T3F, TSH3, MG, CMP #### [address] Specificy [place],Urine 1.024 Normal 1.001-1.03 0 [facility] Comment on above: Order Comment: Name Collection Type:: Clean-Voided Midstream Performed By: #### T 4F, LIPID, T3F, TSH3, MG, CMP #### [address] Squamous Epithelial Cell,Urine 5 [HPF] High 0-2 [facility] Comment on above: Order Comment: Name Collection Type:: Clean-Voided Midstream Performed By: #### T 4F, LIPID, T3F, TSH3, MG, CMP #### [address] Urobilinogen,Urine Normal Normal Normal [facility] Comment on above: Order Comment: Name Collection Type:: Clean-Voided Midstream Performed By: #### T 4F, LIPID, T3F, TSH3, MG, CMP #### [address] WBC,Urine 10 [HPF] High 0-4 [facility] Comment on above: Order Comment: Name Collection Type:: Clean-Voided Midstream Performed By: #### T 4F, LIPID, T3F, TSH3, MG, CMP #### [address] ECG 12 lead ECGon 08-28-2024 ECG 12 lead ECG [facility] [place] [place] [address] Electrocardiograph Report Signed Patient: Cece Hubbard MR#: [id number] 1827 : 1945 Acct:[id number] Age/Sex: 79 / F ADM Date: 08/28/24 Loc: Room: [address] [place] [address] Type: ADM IN Attending Dr: Lion Shook MD Ordering Provider: Bernardo Russell DO Date of Service: 08/28/24 ECG/ECG 12 lead ECG: Shortness of Breath/Dyspnea Copies to: Test Reason : Blood Pressure : 167/84 mmHG Vent. Rate : 59 BPM Atrial Rate : 59 BPM P-R Int : 158 ms QRS Dur : 78 ms QT Int : 470 ms P-R-T Axes : 47 84 81 degrees QTcB Int : 465 ms Sinus bradycardia Nonspecific ST abnormality Abnormal ECG When compared with ECG of 29-Jul-2017 09:25, Vent. rate has decreased by 29 bpm Confirmed by BERNARDO RUSSELL DO ([id number]) on 08/28/2024 8:50:11 PM Referred By: Electronically Signed By: BERNARDO RUSSELL DO Transcribed By: MUS Signed By Bernardo Russell DO 08/28 Normal [facility] Epithelial cells.squamous [# /area] in Urine sediment by Automated countOrdered By: Bernardo Russell on 08-28-2024 Epithelial cells.squamous Auto (Urine sed) [#/Area] Epithelial cells.squamous [#/area] in Urine sediment by Automated count High 0-2 [facility] Erythrocyte distribution wid th Auto (RBC) [Ratio]Ordered By: Bernardo Russell on 08-28-2024 Erythrocyte distribution width (RBC) [Ratio] Erythrocyte distribution width [Ratio] by Automated count High 11.9-15.3 [facility] Erythrocytes [#/area] in Uri ne sediment by Automated countOrdered By: Bernardo Russell on 08-28-2024 RBC Auto (Urine sed) [#/Area] Erythrocytes [#/area] in Urine sediment by Automated count High 0-4 [facility] Globulin Calc (S) [Mass/Vol] Ordered By: Bernardo Russell on 08-28-2024 Globulin (S) [Mass/Vol] Serum globulin measurement by calculation (mass/volume) [facility] Glucose [Mass/volume] in Ser um or PlasmaOrdered By: Bernardo Russell on 08-28-2024 Glucose [Mass/Vol] Glucose [Mass/volume ] in Serum or Plasma 70-100 [facility] Comment on above: ADA recommended refe rence rangeRandom Glucose Reference Range is dependent on time and content of last meal. Glucose of more than 200 mg/dL in a nonstressed, ambulatory subject supports the diagnosis of Diabetes Mellitus. Glucose [Mass/volume] in Uri ne by Test stripOrdered By: Bernardo Russell on 08-28-2024 Glucose Test strip (U) [Mass/Vol] Glucose [Mass/volume] in Urine by Test strip Normal [facility] Hematocrit Auto (Bld) [Volum e fraction]Ordered By: Bernardo Russell on 08-28-2024 Hematocrit (Bld) [Volume fraction] Hematocrit [Volume Fraction] of Blood by Automated count 34.0-46.4 [facility] Hemoglobin Test strip Ql (U) Ordered By: Bernardo Russell on 08-28-2024 Hemoglobin Ql (U) Hemoglobin [Presence ] in Urine by Test strip Negative [facility] Hemoglobin [Mass/volume] in BloodOrdered By: Bernardo Russell on 08-28-2024 Hemoglobin (Bld) [Mass/Vol] Hemoglobin [Mass/volume] in Blood 11.8-15.4 [facility] Hemogram CBC Without Diffon 08-28-2024 Erythrocyte distribution width (RBC) [Ratio] 16.2 % High 11.9-15.3 [facility] Comment on above: Performed By: #### C BCNO, CMP, LIPASE #### [address] Hematocrit (Bld) [Volume fraction] 38.1 % Normal 34.0-46.4 [facility] Comment on above: Performed By: #### C BCNO, CMP, LIPASE #### [address] Hemoglobin (Bld) [Mass/Vol] 12.8 g/dL Normal 11.8-15.4 [facility] Comment on above: Performed By: #### C BCNO, CMP, LIPASE #### [address] MCH (RBC) [Entitic mass] 29.2 pg Normal 24.7-34.3 [facility] Comment on above: Performed By: #### C BCNO, CMP, LIPASE #### [address] MCV (RBC) [Entitic vol] 86.6 fL Normal 80-100 [facility] Comment on above: Performed By: #### C BCNO, CMP, LIPASE #### [address] [address] [place] Mean Corpuscular HGB Conc 33.7 g/dL Normal 32.0-35.0 [facility] Comment on above: Performed By: #### C BCNO, CMP, LIPASE #### [address] Platelet mean volume (Bld) [Entitic vol] 8.9 fL Normal 6.3-10.7 [facility] Comment on above: Result Comment: PERF ORMED BY: [place] [address] PATHOLOGIST CAMPUS ADMINISTRATOR PRO GOMEZ M.D. Performed By: #### C BCNO, CMP, LIPASE #### [address] Platelets (Bld) [#/Vol] 263 10*3/uL Normal 150-450 [facility] Comment on above: Performed By: #### C BCNO, CMP, LIPASE #### [address] RBC (Bld) [#/Vol] 4.40 10*6/uL Normal 3.60-5.00 [facility] Comment on above: Performed By: #### C BCNO, CMP, LIPASE #### [address] WBC (Bld) [#/Vol] 9.2 10*3/uL Normal 3.8-11.6 [facility] Comment on above: Performed By: #### C BCNO, CMP, LIPASE #### [address] Hyaline casts [#/area] in Ur ine sediment by Automated countOrdered By: Bernardo Russell on 08-28-2024 Hyaline casts Auto (Urine sed) [#/Area] Hyaline casts [#/area] in Urine sediment by Automated count 0-8 [facility] Ketones Test strip Ql (U)Ord ered By: Bernardo Russell on 08-28-2024 Ketones Ql (U) Ketones [Presence] i n Urine by Test strip Negative [facility] Leukocyte esterase [Presence ] in Urine by Test stripOrdered By: Bernardo Russell on 08-28-2024 Leukocyte esterase Test strip Ql (U) Leukocyte esterase [Presence] in Urine by Test strip High Negative [facility] Leukocytes [#/area] in Urine sediment by Automated countOrdered By: Bernardo Russell on 08-28-2024 WBC Auto (Urine sed) [#/Area] Leukocytes [#/area] in Urine sediment by Automated count High 0-4 [facility] Leukocytes [#/volume] correc mayda for nucleated erythrocytes in Blood by Automated counOrdered By: Bernardo Russell on 08-28-2024 WBC corrected for nucl RBC Auto (Bld) [#/Vol] Leukocytes [#/volume] corrected for nucleated erythrocytes in Blood by Automated coun 3.8-11.6 [facility] Lipaseon 08-28-2024 Lipase [Catalytic activity/Vol] 17.0 U/L Normal 11.0-82.0 [facility] Comment on above: Result Comment: PERF ORMED BY: [place] [address] PATHOLOGIST CAMPUS ADMINISTRATOR PRO GOMEZ M.D. Performed By: #### T 4F, LIPID, T3F, TSH3, MG, CMP #### [address] Lipase [Enzymatic activity/v olume] in Serum or PlasmaOrdered By: Bernardo Russell on 08-28-2024 Lipase [Catalytic activity/Vol] Lipase [Enzymatic activity/volume] in Serum or Plasma 11.0-82.0 [facility] MCH Auto (RBC) [Entitic mass ]Ordered By: Bernardo Russell on 08-28-2024 MCH (RBC) [Entitic mass] MCH [Entitic mass] by Automated count 24.7-34.3 [facility] MCHC Auto (RBC) [Mass/Vol]Or dered By: Bernardo Russell on 08-28-2024 MCHC (RBC) [Mass/Vol] MCHC [Mass/volume] by Automated count 32.0-35.0 [facility] MCV Auto (RBC) [Entitic vol] Ordered By: Bernardo Russell on 08-28-2024 MCV (RBC) [Entitic vol] MCV [Entitic volume] by Automated count 80-100 [facility] Mucus [Presence] in Urine by AutomatedOrdered By: Bernardo Russell on 08-28-2024 Mucus Auto Ql (U) Mucus [Presence] in Urine by Automated Abnormal [facility] Natriuretic peptide B [Mass/ Vol]Ordered By: Bernardo Russell on 08-28-2024 Natriuretic peptide B (Bld) [Mass/Vol] BNP ser/plas High 5-100 [facility] Nitrite Test strip Ql (U)Ord ered By: Bernardo Russell on 08-28-2024 Nitrite Ql (U) Nitrite [Presence] i n Urine by Test strip Negative [facility] No Panel InformationOrdered By: Bernardo Russell on 08-28-2024 Estimated GFR (CKD-EPI) 48.257 mL/Min [facility] Creatinine Clearance (Chem 40.65 [facility] Platelet mean volume Auto (B ld) [Entitic vol]Ordered By: Bernardo Russell on 08-28-2024 Platelet mean volume (Bld) [Entitic vol] Platelet mean volume [Entitic volume] in Blood by Automated count 6.3-10.7 [facility] Platelets Auto (Bld) [#/Vol] Ordered By: Bernardo Russell on 08-28-2024 Platelets (Bld) [#/Vol] Platelets [#/volume] in Blood by Automated count 150-450 [facility] Potassium [Moles/volume] in Serum or PlasmaOrdered By: Bernardo Russell on 08-28-2024 Potassium [Moles/Vol] Potassium [Moles/v olume] in Serum or Plasma 3.5-5.1 [facility] Protein Test strip (U) [Mass /Vol]Ordered By: Bernardo Russell on 08-28-2024 Protein (U) [Mass/Vol] Protein [Mass/vol ume] in Urine by Test strip High Negative [facility] Protein [Mass/volume] in Ser um or PlasmaOrdered By: Bernardo Russell on 08-28-2024 Protein [Mass/Vol] Protein [Mass/volume ] in Serum or Plasma 6.4-8.9 [facility] Prothrombin Time INRon 08-28 INR Coag (PPP) [Relative time] 4.3 {INR} Normal [facility] Comment on above: Result Comment: INR Therapeutic Range A) Pre- and Peroperative OAT started two weeks before surgery. NOT HIP SURGERY: 1.5 - 2.5 HIP SURGERY: 2 - 3 B) Primary and secondary prevention of venous THROMBOSIS: 2 - 3 C) Active venous thrombosis, pulmonary embolism and prevention of recurrent venous thrombosis: 2 - 3 D) Prevention of arterial thromboembolism including patients with mechanical heart valves: 3 - 4.5 PERFORMED BY: [place] [address] PATHOLOGIST CAMPUS ADMINISTRATOR PRO GOMEZ M.D. Performed By: #### T 4F, LIPID, T3F, TSH3, MG, CMP #### [address] PT Coag (PPP) [Time] 47.8 s High 9.0-12.9 [facility] Comment on above: Result Comment: A he matocrit value greater than 55% may lead to inaccurate results in coagulation testing. Patients having hematocrit values >55% require a special collection tube for coagulation studies. Please contact the laboratory at [phone] for redraw instructions. Performed By: #### T 4F, LIPID, T3F, TSH3, MG, CMP #### [address] RBC Auto (Bld) [#/Vol]Ordere d By: Bernardo Russell on 08-28-2024 RBC (Bld) [#/Vol] Erythrocytes [#/volu me] in Blood by Automated count 3.60-5.00 [facility] Respiratory specimen influen za A virus, influenza B virus, respiratory syncytical virOrdered By: Bernardo Russell on 08-28-2024 SARS-CoV-2 (COVID-19) RNA ERICK+probe Ql (Unsp spec) Respiratory specimen influenza A virus, influenza B virus, respiratory syncytical vir [facility] Serum or plasma albumin/glob ulin mass ratioOrdered By: Bernardo Russell on 08-28-2024 Albumin/Globulin [Mass ratio] Serum or plasma albumin/globulin mass ratio [facility] Serum or plasma anion gap de terminationOrdered By: Bernardo Russell on 08-28-2024 Anion gap [Moles/Vol] Serum or plasma an ion gap determination 6.0-15.0 [facility] Sodium [Moles/volume] in Ser um or PlasmaOrdered By: Bernardo Russell on 08-28-2024 Sodium [Moles/Vol] Sodium [Moles/volume ] in Serum or Plasma 136-145 [facility] Specific gravity Test strip (U) [Rel density]Ordered By: Bernardo Russell on 08-28-2024 Specific gravity (U) [Rel density] Specific gravity of Urine by Test strip 1.001-1.03 0 [facility] Troponin I High Sensitivityo n 08-28-2024 Troponin I High Sensitivity 25 High 0-15 [facility] Comment on above: Order Comment: Comme nt repeat Result Comment: The Troponin units of report have been changed to meet the Chest Pain Accreditation requirement, element EC5.M1l2. Troponin units are changed from pg/ml to ng/L. Also, the decimal is removed and results are in whole numbers. PERFORMED BY: [place] [address] PATHOLOGIST CAMPUS ADMINISTRATOR PRO GOMEZ M.D. Performed By: #### H S TROP #### [address] Troponin I High Sensitivity 30 High 0-15 [facility] Comment on above: Result Comment: The Troponin units of report have been changed to meet the Chest Pain Accreditation requirement, element EC5.M1l2. Troponin units are changed from pg/ml to ng/L. Also, the decimal is removed and results are in whole numbers. PERFORMED BY: [place] [address] PATHOLOGIST CAMPUS ADMINISTRATOR PRO GOMEZ M.D. Performed By: #### T 4F, LIPID, T3F, TSH3, MG, CMP #### [facility] [address] [place] [address] Troponin I.cardiac [Mass/vol ume] in Serum or Plasma by Detection limit <= 0.01 ng/Ordered By: Bernardo Russell on 08-28-2024 Troponin I.cardiac DL <= 0.01 ng/mL [Mass/Vol] Troponin I.cardiac [Mass/volume] in Serum or Plasma by Detection limit <= 0.01 ng/ High 0-15 [facility] Comment on above: The Troponin units o f report have been changed to meet the Chest Pain Accreditation requirement, element EC5.M1l2. Troponin units are changed from pg/ml to ng/L. Also, the decimal is removed and results are in whole numbers. Urea nitrogen [Mass/volume] in Serum or PlasmaOrdered By: Bernardo Russell on 08-28-2024 Urea nitrogen [Mass/Vol] Urea nitrogen [Mass/volume] in Serum or Plasma 03-04 [facility] Urine Cultureon 08-28-2024 Bacteria identified Cx Nom (U) >100,000 colonies/ml mixed bacterial skin contaminants 2 Days PERFORMED BY: [place] [address] PATHOLOGIST CAMPUS ADMINISTRATOR PRO GOMEZ M.D. Normal [facility] Comment on above: Performed By: #### T 4F, LIPID, T3F, TSH3, MG, CMP #### [address] Urobilinogen Test strip (U) [Mass/Vol]Ordered By: Bernardo Russell on 08-28-2024 Urobilinogen (U) [Mass/Vol] Urobilinogen [Mass/volume] in Urine by Test strip Normal [facility] X-ray reportOrdered By: Ian Cantu on 08-28-2024 Study report [facility] [place] [address] XRay Report Signed Patient: Cece Hubbard MR#: [id number] : 1945 Acct:[id number] Age/Sex: 79 / F ADM Date: 5 Loc: ER Room: Type: [facility] ER Attending Dr: Copies to: Bernardo Russell DO~ Ordering Provider: Bernardo Russell DO Date of Service: 08/28/24 XR/XR chest 1V portable: Shortness of Breath/Dyspnea SINGLE VIEW CHEST CLINICAL HISTORY: Atrial fibrillation, nausea and shortness of breath COMPARISON: 07/28/2017 FINDINGS: Large cardiomediastinal silhouette. There is right hilar prominence noted. Mild central vascular congestion. Lungs are otherwise clear. No effusion or pneumothorax. XR/XR chest 1V portable IMPRESSION: RIGHT HILAR PROMINENCE. CONSIDER CROSS-SECTIONAL IMAGING. OTHERWISE NO ACUTE AIRSPACE OPACITY Impression dictated by: Elvin Cantu M.D.08/28/2024 2:45 PM Dictation Location: RADIO-PC-29 Transcribed By: HERVE 08/28/24 144 Dictated By: Elvin Cantu MD 08/28/24 144 Signed By: 08/28/241444 [facility] Work Phone: XR chest 1V portableon 08-28 XR chest 1V portable [facility] [place] [address] XRay Report Signed Patient: Cece Hubbard MR#: [id number] : 1945 Acct:[id number] Age/Sex: 79 / F ADM Date: 08/28/24 Loc: ER Room: Type: [facility] ER Attending Dr: Copies to: Bernardo Russell DO Ordering Provider: Bernardo Russell DO Date of Service: 08/28/24 XR/XR chest 1V portable: Shortness of Breath/Dyspnea SINGLE VIEW CHEST CLINICAL HISTORY: Atrial fibrillation, nausea and shortness of breath COMPARISON: 07/28/2017 FINDINGS: Large cardiomediastinal silhouette. There is right hilar prominence noted. Mild central vascular congestion. Lungs are otherwise clear. No effusion or pneumothorax. XR/XR chest 1V portable IMPRESSION: RIGHT HILAR PROMINENCE. CONSIDER CROSS-SECTIONAL IMAGING. OTHERWISE NO ACUTE AIRSPACE OPACITY Impression dictated by: Elvin Cantu M.D.08/28/2024 2:45 PM Dictation Location: RADIO-PC-29 Transcribed By: HERVE 08/28/24 1445 Dictated By: Elvin Cantu MD 08/28/24 1442 Signed By: 08/28/24 1445 Normal [facility] pH Test strip (U)Ordered By: Bernardo Russell on 08-28-2024 pH (U) pH of Urine by Test strip 5.0-9.0 [facility] MM screening mammo BI w/CADo n 07-29-2024 MM screening mammo BI w/CAD [facility] [place] [address] Mammography Report Signed Patient: Cece Hubbard MR#: [id number] 1827 : 1945 Acct:[id number] Age/Sex: 79 / F ADM Date: 07/29/24 Loc: [place] Room: Type: [facility] Attending Dr: Referral Self Copies to: Demarco Newell MD SELF,REFERRAL Ordering Provider: SELF,REFERRAL Date of Service: 07/29/24 MM/MM screening mammo BI w/CAD: SCREENING CLINICAL DATA: Screening for malignancy. SCREENING MAMMOGRAM - FULL FIELD DIGITAL WITH TOMOSYNTHESIS AND CAD COMPARISON:Mammograms dating back to 2019 Tomosynthesis craniocaudal and mediolateral oblique views of both breasts were obtained using low- dose digital technique. This examination was reviewed with the aid of CAD. FINDINGS: The breast tissue is composed of scattered fibroglandular densities. There are no dominant masses, typically malignant calcifications or architectural distortion. There has been no significant interval change. MM/MM screening mammo BI w/CAD IMPRESSION: NO MAMMOGRAPHIC EVIDENCE OF MALIGNANCY. ROUTINE FOLLOW-UP IS RECOMMENDED IN ONE YEAR. RESULT CODE: 1 Negative DENSITY CODE: 2 (approximately 25-50% glandular) FOLLOW UP: 1YR The false-negative rate of mammography is approximately 10-percent. Management of a palpable abnormality must be based on clinical grounds. Patient was entered into a reminder system with a target due date for the next mammogram. Impression dictated by: Brett Arambula Jr., D.O.07/29/2024 1:34 PM Dictation Location: [facility] Transcribed By: HERVE 07/29/24 1339 Dictated By: Brett Arambula Jr, DO 07/29/24 1333 Signed By: 07/29/24 1334 Normal [facility] Laboratory - Microbiology an d Antimicrobial susceptibilityon 04-26-2024 A. vaginae DNA ERICK+probe Ql (Vag fld) Low - 0 Score [facility] Bacterial vaginosis associated bacterium 2 DNA ERICK+probe Ql (Vag fld) Low - [address] [facility] C. albicans DNA ERICK+probe Ql (Vag fld) Negative Negative [facility] C. glabrata DNA ERICK+probe Ql (Vag fld) Negative Negative [facility] C. trachomatis DNA ERICK+probe Ql (Unsp spec) Negative Negative [facility] M. genitalium DNA ERICK+probe Ql (Unsp spec) Negative Negative [facility] M. hominis DNA ERICK+probe Ql (Unsp spec) Negative Negative [facility] Megasphaera sp type 1 DNA ERICK+probe Ql (Vag fld) Low - 0 Score [facility] Comment on above: Calculate total scor e by adding the 3 individual bacterial vaginosis (BV) marker scores together. Total score is interpreted as follows: Total score 0-1: Indicates the absence of BV. Total score 2: Indeterminate for BV. Additional clinical data should be evaluated to establish a diagnosis. Total score 3-6: Indicates the presence of BV. N. gonorrhoeae DNA ERICK+probe Ql (Vag fld) Negative Negative [facility] T. vaginalis DNA ERICK+probe Ql (Vag fld) Negative Negative [facility] Ureaplasma sp DNA ERICK+probe Ql (Unsp spec) Negative Negative [facility] No Panel Informationon 04-26 Test(s) 312215- Atop obium vaginae; 263127- BVAB 2; 912594- Megasphaera 1 was developed and its performance characteristics determined by [employer]. It has not been cleared or approved by the Food and Drug Administration. Test(s) 035475-Rmlhywi albicans, ERICK; 704156-Qrblnlp glabrata, ERICK was developed and its performance characteristics determined by [employer]. It has not been cleared or approved by the Food and Drug Administration. Performed at: [address] [id number] Youth Counselor: Deidra Nelson MD, Phone: [phone] [facility] Test(s) 219515-Jrmhm lasma hominis ERICK; 004460-Nddzqgukdo spp ERICK was developed and its performance characteristics determined by [employer]. It has not been cleared or approved by the Food and Drug Administration. Performed at: [facility] [id number] [place], [place] [id number] Youth Counselor: Deidra Nelson MD, Phone: [phone] [facility] Basic Metabolic Panelon 01-09 Creatinine Clr Calc Pharmacy 33.05 Normal [facility] Comment on above: Result Comment: PERF ORMED BY: [place] [address] PATHOLOGIST CAMPUS ADMINISTRATOR ESTRADA ARIAS M.D. Performed By: #### B MP #### [place] [address] [place] GFR/1.73 sq M.predicted MDRD (S/P/Bld) [Vol rate/Area] 38.094 mL/min/{1.73_m2} Normal [facility] Comment on above: Performed By: #### B MP #### [place] [address] [place] Calcium [Mass/volume] in Ser um or PlasmaOrdered By: Rupert Bird on 01-20-2024 Calcium [Mass/Vol] 9.5 mg/dL Normal 8.6-10.[address] [facility] Comment on above: Performed By: #### B MP #### [place] [address] [place] Carbon dioxide, total [Moles /volume] in Serum or PlasmaOrdered By: Rupert Bird on 01-20-2024 CO2 [Moles/Vol] 25.3 mmol/L Normal 21.0-31.0 [facility] Comment on above: Performed By: #### B MP #### [place] [address] [place] Chloride [Moles/volume] in S calli or PlasmaOrdered By: Rupert Bird on 01-20-2024 Chloride [Moles/Vol] 104 mmol/L Normal 98-107 [facility] Comment on above: Performed By: #### B MP #### [place] [address] [place] Creatinine [Mass/volume] in Serum or PlasmaOrdered By: Rupert Bird on 01-20-2024 Creatinine [Mass/Vol] 1.42 mg/dL High 0.60-1.20 [facility] Comment on above: Performed By: #### B MP #### [facility] [address] Glucose [Mass/volume] in Ser um or PlasmaOrdered By: Rupert Bird on 01-20-2024 Glucose [Mass/Vol] 92 mg/dL Normal 70-[address] [facility] Comment on above: ADA recommended refe rence rangeRandom Glucose Reference Range is dependent on time and content of last meal. Glucose of more than 200 mg/dL in a nonstressed, ambulatory subject supports the diagnosis of Diabetes Mellitus. Result Comment: [place] om Glucose Reference Range is dependent on time and content of last meal. Glucose of more than 200 mg/dL in a nonstressed, ambulatory subject supports the diagnosis of Diabetes Mellitus. ADA recommended reference range Performed By: #### B MP #### [address] No Panel InformationOrdered By: Rupert Bird on 01-20-2024 Estimated GFR (CKD-EPI) 38.094 mL/Min [facility] Creatinine Clearance (Chem 33.05 [facility] Potassium [Moles/volume] in Serum or PlasmaOrdered By: Rupert Bird on 01-20-2024 Potassium [Moles/Vol] 4.5 mmol/L Normal 3.5-5.1 [facility] Comment on above: Performed By: #### B MP #### [facility] [address] Serum or plasma anion gap de terminationOrdered By: Rupert Bird on 01-20-2024 Anion gap [Moles/Vol] 11.2 mmol/L Normal 6.0-15.0 [facility] Comment on above: Performed By: #### B MP #### [address] Sodium [Moles/volume] in Ser um or PlasmaOrdered By: Rupert Vasquezy on 01-20-2024 Sodium [Moles/Vol] 136 mmol/L Normal 136-[address] [facility] Comment on above: Performed By: #### B MP #### [facility] [address] [place] [id number] [facility] Urea nitrogen [Mass/volume] in Serum or PlasmaOrdered By: Rupert Jacksonarthy on 01-20-2024 Urea nitrogen [Mass/Vol] 20 mg/dL Normal 7-25 [facility] Comment on above: Performed By: #### B MP #### [facility] [address] [place] [id number] [facility] ECG 12 Leadon 01-12-2024 ECG revealed normal sinus rhythm and normal ECG [facility] Work Phone: ECG B/O W INTERP ([employer] )on 12-23-2023 [facility] CNPNon 12-09-2023 CNPN Telephone (PODCCP) -- CECE HUBBARD ([id number]) 1945 F Date Time Provider Department 12/09/23 TANG FOWLER PODCCP During your visit today, we recorded the following information about you: Tang Fowler RN 12/09/2023 11:53 AM Signed We are calling to check on how you are doing since our last phone call. Are you having any medical concerns we can help you with today? Pt denied medical concerns at this time. Pt confirmed pt has 24-hour nurse resource line for questions or concerns. PD nurse confirmed/verified patient's and full name. All clear. Closing statement given Tang Fowler RN Allergies As of Date: 12/09/2023 Noted Allergy Reaction SERINA INHIBITORS 04/28/2012 2 - Rash 4 - Hives AMLODIPINE 04/24/2022 7 - Swelling CODEINE 04/28/2012 11 - Vomiting DILAUDID (HYDROMORPHONE (BULK)) 05/12/2012 11 - Vomiting MEPERIDINE 07/28/2017 11 - Vomiting MORPHINE 10/26/2023 11 - Vomiting NEURONTIN (GABAPENTIN) 10/26/2023 1 - Mental Status Change Date Reviewed: 12/03/2023 Reviewed by: Nikia Person - Fully Assessed Reason for Visit: Follow Up Phone Call [[phone]] Cmt: RC f/u all clear Prescriptions as of 12/09/2023 - amiodarone (PACERONE) 200 mg tablet Take a half tablet by mouth once daily. - aspirin 81 mg chewable tablet Take 1 tablet by mouth once daily for 6 doses. Patient should start on December 04, 2023. - atorvastatin (LIPITOR) 40 mg tablet Take 1 tablet by mouth once daily. - apixaban (ELIQUIS) 5 mg tab(s) Take 1 tablet by mouth two times a day. - escitalopram oxalate (LEXAPRO) 10 mg tablet Take 1 tablet by mouth once daily. - hydrALAZINE (APRESOLINE) 25 mg tablet Take 1 tablet by mouth two times a day. - isosorbide mononitrate ER (IMDUR) 30 mg 24 hr tablet Take 1 tablet by mouth once daily. - liothyronine (CYTOMEL) 5 mcg tablet Take 1 tablet by mouth daily before breakfast. - pantoprazole DR (PROTONIX) 40 mg tablet Take 1 tablet by mouth once daily. - clopidogrel (PLAVIX) 75 mg tablet Take 1 tablet by mouth once daily. - furosemide (LASIX) 40 mg tablet Take 1 tablet by mouth once daily as needed (for >2lb weight gain in 1 day or >5 lb in 1 week, call numerical control machine machinist if taking this). - potassium chloride ER (KLOR-CON) 20 mEq tablet Take 1 tablet by mouth once daily as needed (take only if taking a dose of lasix for weight gain/swelling). Meds Comments as of 12/04/2023: 12/04/23 The medications are managed by this patient by: PATIENT Barry Whiting, [facility] Problem List As Of Date 12/09/2023 Noted Resolved Knee pain [M25.569] 06/04/2012 Chronic bilateral low back pain without sciatic*06/14/2016 HTN (hypertension) [I10] 02/22/2019 Hyperlipidemia [E78.5] 02/22/2019 Acid reflux [K21.9] 02/22/2019 Depression [F32.A] 04/24/2022 Anxiety [F41.9] 04/24/2022 CAD (coronary artery disease) [I25.10] 04/24/2022 Severe mitral regurgitation [I34.0] 10/27/2023 LAY (acute kidney injury) (HCC) [N17.9] 10/27/2023 Mitral valve insufficiency [I34.0] 10/27/2023 Atrial fibrillation (HCC) [I48.91] 10/27/2023 Obesity, Class I, BMI 30-34.9 [E66.9] 10/30/2023 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] 11/05/2023 Hematoma of right lower leg [S80.11XA] 11/05/2023 Right leg swelling [M79.89] 11/05/2023 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 Anticoagulated [Z79.01] 11/09/2023 HOLLY (dyspnea on exertion) [R06.09] 11/24/2023 Stage 3 chronic kidney disease (HCC) [N18.30] 11/24/2023 Chronic heart failure with preserved ejection f*11/24/2023 Hypothyroidism [E03.9] 11/24/2023 NSTEMI (non-ST elevated myocardial infarction) *11/25/2023 Nonrheumatic aortic valve insufficiency [I35.1] 11/26/2023 Pre-op exam [Z01.818] 11/26/2023 Anticoagulation management encounter [Z51.81, Z*11/26/2023 Dyspnea on exertion [R06.09] 11/26/2023 Atrial fibrillation, chronic (HCC) [I48.20] 11/26/2023 Encounter Status:Closed by TANG FOWLER on 12/09/23 [facility] 12-04-2023 CHRISTINAN Telephone (NURSMN) -- CECE HUBBARD ([id number]) 1945 F Date Time Provider Department 12/04/23 LUI SANCHEZ During your visit today, we recorded the following information about you: Lui Sanchez, VIKTOR 12/04/2023 11:44 AM Signed PD nurse called patient for follow up from recent hospital discharge, but no answer. Left message on [employer] including 03/03 resource nurse phone number. Lui Sanchez RN Allergies As of Date: 12/04/2023 Noted Allergy Reaction SERINA INHIBITORS 04/28/2012 2 - Rash 4 - Hives AMLODIPINE 04/24/2022 7 - Swelling CODEINE 04/28/2012 11 - Vomiting DILAUDID (HYDROMORPHONE (BULK)) 05/12/2012 11 - Vomiting MEPERIDINE 07/28/2017 11 - Vomiting MORPHINE 10/26/2023 11 - Vomiting NEURONTIN (GABAPENTIN) 10/26/2023 1 - Mental Status Change Date Reviewed: 12/03/2023 Reviewed by: Nikia Person - Fully Assessed Reason for Visit: Follow Up Phone Call [[phone]] Cmt: follow up call first attempt. Prescriptions as of 12/04/2023 - amiodarone (PACERONE) 200 mg tablet Take a half tablet by mouth once daily. - aspirin 81 mg chewable tablet Take 1 tablet by mouth once daily for 6 doses. Patient should start on December 04, 2023. - atorvastatin (LIPITOR) 40 mg tablet Take 1 tablet by mouth once daily. - apixaban (ELIQUIS) 5 mg tab(s) Take 1 tablet by mouth two times a day. - escitalopram oxalate (LEXAPRO) 10 mg tablet Take 1 tablet by mouth once daily. - hydrALAZINE (APRESOLINE) 25 mg tablet Take 1 tablet by mouth two times a day. - isosorbide mononitrate ER (IMDUR) 30 mg 24 hr tablet Take 1 tablet by mouth once daily. - liothyronine (CYTOMEL) 5 mcg tablet Take 1 tablet by mouth daily before breakfast. - pantoprazole DR (PROTONIX) 40 mg tablet Take 1 tablet by mouth once daily. - clopidogrel (PLAVIX) 75 mg tablet Take 1 tablet by mouth once daily. - furosemide (LASIX) 40 mg tablet Take 1 tablet by mouth once daily as needed (for >2lb weight gain in 1 day or >5 lb in 1 week, call numerical control machine machinist if taking this). - potassium chloride ER (KLOR-CON) 20 mEq tablet Take 1 tablet by mouth once daily as needed (take only if taking a dose of lasix for weight gain/swelling). 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] 11/05/2023 Hematoma of right lower leg [S80.11XA] 11/05/2023 Right leg swelling [M79.89] 11/05/2023 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 Anticoagulated [Z79.01] 11/09/2023 HOLLY (dyspnea on exertion) [R06.09] 11/24/2023 Stage 3 chronic kidney disease (HCC) [N18.30] 11/24/2023 Chronic heart failure with preserved ejection f*11/24/2023 Hypothyroidism [E03.9] 11/24/2023 NSTEMI (non-ST elevated myocardial infarction) *11/25/2023 Nonrheumatic aortic valve insufficiency [I35.1] 11/26/2023 Pre-op exam [Z01.818] 11/26/2023 Anticoagulation management encounter [Z51.81, Z*11/26/2023 Dyspnea on exertion [R06.09] 11/26/2023 Atrial fibrillation, chronic (HCC) [I48.20] 11/26/2023 Encounter Status:Closed by LUI SANCHEZ on 12/04/23 [facility] Telephone ([facility]) -- CECE HUBBARD ([id number]) 1945 F Date Time Provider Department 12/04/23 LUI SANCHEZ [facility] During your visit today, we recorded the following information about you: Lui Sanchez RN 12/04/2023 2:59 PM Signed 1. Have you noticed any increase in shortness of breath since you left the hospital? -No 2. Have you noticed any increased swelling in your feet , ankles, or stomach? (Skip for vascular pts) -No 3. Have you gained more than 2-3 pounds since discharge? (Skip for vascular AND EP pts) -No 4. Have you noticed any change in your incision or wound since you were discharged? (as we want you to be aware of any signs of infection) -No 5. Are you having any increased pain since discharge? If yes: What type of pain and where? (pressure, sharp pain, dull pain, etc.) -No 6. Have you had any unplanned trips to the emergency department or hospital since you were discharged? If yes - why? -No 7. Do you have any questions about your medications? -No 8. Were you able to fill all of the prescribed medications? -Yes 9. Do you have a doctor?s appointment scheduled or is someone working on getting you a follow-up appointment? -Yes All clear and closing statement given. PD RN verified patients name and date of . Lui Sanchez RN Allergies As of Date: 12/04/2023 Noted Allergy Reaction SERINA INHIBITORS 04/28/2012 2 - Rash 4 - Hives AMLODIPINE 04/24/2022 7 - Swelling CODEINE 04/28/2012 11 - Vomiting DILAUDID (HYDROMORPHONE (BULK)) 05/12/2012 11 - Vomiting MEPERIDINE 07/28/2017 11 - Vomiting MORPHINE 10/26/2023 11 - Vomiting NEURONTIN (GABAPENTIN) 10/26/2023 1 - Mental Status Change Date Reviewed: 12/03/2023 Reviewed by: Nikia Person - Fully Assessed Reason for Visit: Follow Up Phone Call [[phone]] Cmt: follow up call all clear. Prescriptions as of 12/04/2023 - amiodarone (PACERONE) 200 mg tablet Take a half tablet by mouth once daily. - aspirin 81 mg chewable tablet Take 1 tablet by mouth once daily for 6 doses. Patient should start on December 04, 2023. - atorvastatin (LIPITOR) 40 mg tablet Take 1 tablet by mouth once daily. - apixaban (ELIQUIS) 5 mg tab(s) Take 1 tablet by mouth two times a day. - escitalopram oxalate (LEXAPRO) 10 mg tablet Take 1 tablet by mouth once daily. - hydrALAZINE (APRESOLINE) 25 mg tablet Take 1 tablet by mouth two times a day. - isosorbide mononitrate ER (IMDUR) 30 mg 24 hr tablet Take 1 tablet by mouth once daily. - liothyronine (CYTOMEL) 5 mcg tablet Take 1 tablet by mouth daily before breakfast. - pantoprazole DR (PROTONIX) 40 mg tablet Take 1 tablet by mouth once daily. - clopidogrel (PLAVIX) 75 mg tablet Take 1 tablet by mouth once daily. - furosemide (LASIX) 40 mg tablet Take 1 tablet by mouth once daily as needed (for >2lb weight gain in 1 day or >5 lb in 1 week, call numerical control machine machinist if taking this). - potassium chloride ER (KLOR-CON) 20 mEq tablet Take 1 tablet by mouth once daily as needed (take only if taking a dose of lasix for weight gain/swelling). 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] 11/05/2023 Hematoma of right lower leg [S80.11XA] 11/05/2023 Right leg swelling [M79.89] 11/05/2023 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 Anticoagulated [Z79.01] 11/09/2023 HOLLY (dyspnea on exertion) [R06.09] 11/24/2023 Stage 3 chronic kidney disease (HCC) [N18.30] 11/24/2023 Chronic heart failure with preserved ejection f*11/24/2023 Hypothyroidism [E03.9] 11/24/2023 NSTEMI (non-ST elevated myocardial infarction) *11/25/2023 Nonrheumatic aortic valve insufficiency [I35.1] 11/26/2023 Pre-op exam [Z01.818] 11/26/2023 Anticoagulation management encounter [Z51.81, Z*11/26/2023 Dyspnea on exertion [R06.09] 11/26/2023 Atrial fibrillation, chronic (HCC) [I48.20] 11/26/2023 Encounter Status:Closed by LUI SANCHEZ on 12/04/23 Normal [facility] CBC panel Auto (Bld)on 12-02 Erythrocyte distribution width (RBC) [Ratio] 14.6 % Normal 11.5-15.0 [facility] Comment on above: Order Comment: Speci men Type: BLOOD SPECIMEN Ordering Facility: [facility] Address: [address] [place] [address] Performed By: #### 3 4528-0, PTTAC #### [facility] CLIA [id number] [address] [place] [address] [place] Hematocrit (Bld) [Volume fraction] 40.6 % Normal 36.0-46.0 [facility] Comment on above: Order Comment: Speci men Type: BLOOD SPECIMEN Ordering Facility: [facility] Address: [address] [place] [address] Performed By: #### 3 4528-0, PTTAC #### [facility] CLIA [id number] [address] [place] [address] [place] Hemoglobin (Bld) [Mass/Vol] 13.4 g/dL Normal 11.5-15.5 [facility] Comment on above: Order Comment: Speci men Type: BLOOD SPECIMEN Ordering Facility: [facility] Address: [address] [place] [address] Performed By: #### 3 4528-0, PTTAC #### [facility] CLIA [id number] [address] [place] [address] [place] MCH (RBC) [Entitic mass] 31.2 pg Normal 26.0-34.0 [facility] Comment on above: Order Comment: Speci men Type: BLOOD SPECIMEN Ordering Facility: [facility] Address: [address] [place] [address] Performed By: #### 3 4528-0, PTTAC #### [facility] CLIA [id number] [address] [place] [address] [place] MCHC (RBC) [Mass/Vol] 33.0 g/dL Normal 30.5-36.0 [facility] Comment on above: Order Comment: Speci men Type: BLOOD SPECIMEN Ordering Facility: [facility] Address: [address] [place] [address] Performed By: #### 3 4528-0, PTTAC #### [facility] CLIA [id number] [address] [place] [address] [place] MCV (RBC) [Entitic vol] 94.6 fL Normal 80.0-100.0 [facility] Comment on above: Order Comment: Speci men Type: BLOOD SPECIMEN Ordering Facility: [facility] Address: [address] [place] [address] Performed By: #### 3 4528-0, PTTAC #### [facility] CLIA [id number] [address] [place] [address] [place] Nucleated RBC (Bld) [#/Vol] 10*3/uL Normal <0.01 [facility] Comment on above: Order Comment: Speci men Type: BLOOD SPECIMEN Ordering Facility: [facility] Address: [address] [place] [address] Performed By: #### 3 4528-0, PTTAC #### [facility] CLIA [id number] [address] [place] [address] [place] Platelet mean volume (Bld) [Entitic vol] 11.2 fL Normal 9.0-12.7 [facility] Comment on above: Order Comment: Speci men Type: BLOOD SPECIMEN Ordering Facility: [facility] Address: [address] [place] [address] Performed By: #### 3 4528-0, PTTAC #### [facility] CLIA [id number] [address] [place] [address] [place] Platelets (Bld) [#/Vol] 166 10*3/uL Normal 150-400 [facility] Comment on above: Order Comment: Speci men Type: BLOOD SPECIMEN Ordering Facility: [facility] Address: [address] [place] [address] Performed By: #### 3 4528-0, PTTAC #### [facility] CLIA [id number] [address] [place] [address] [place] RBC (Bld) [#/Vol] 4.29 10*6/uL Normal 3.90-5.[address] [facility] Comment on above: Order Comment: Speci men Type: BLOOD SPECIMEN Ordering Facility: [facility] Address: [address] [place] [address] Performed By: #### 3 4528-0, PTTAC #### [facility] CLIA [id number] [address] [place] [address] [place] WBC (Bld) [#/Vol] 6.44 10*3/uL Normal 3.70-11.[address] [facility] Comment on above: Order Comment: Speci men Type: BLOOD SPECIMEN Ordering Facility: [facility] Address: [address] [place] [address] Performed By: #### 3 4528-0, PTTAC #### [facility] CLIA [id number] [address] [place] [address] [place] CNDSon 12-03-2023 CNDS HNO ID: [id number] Author: LIANE BUCKLEY MD Service: Cardiovascular Medicine Author Type: Physician Type: Discharge Summary Filed: 12/04/2023 15:16 Note Text: Department of Cardiovascular Medicine Discharge Summary PATIENT NAME: Cece Hubbard ADMISSION DATE: 11/25/2023 DISCHARGE DATE: 12/03/2023 Attending Physician: Liane Buckley MD Code Status: Prior Primary Service: Imaging, Hvi Admission Diagnosis: CAD Discharge Diagnosis: CAD s/p PCI of the ISR of proximal RCA Secondary Diagnoses: Patient Active Hospital Problem List: NSTEMI (non-ST elevated myocardial infarction) (HCC) (11/25/2023) Nonrheumatic aortic valve insufficiency (11/26/2023) Pre-op exam (11/26/2023) Anticoagulation management encounter (11/26/2023) Dyspnea on exertion (11/26/2023) Atrial fibrillation, chronic (HCC) (11/26/2023) Reason for Hospitalization: Cece Hubbard is a 78F with a PMHx of CAD s/p PCI to LAD and RCA (2019) now with 70% ISR of prox RCA, HFpEF, valvular heart disease (MR AND AR), AFib (on Amio AND Eliquis), HTN, hypothyroidism and GERD who was tentatively scheduled for MVr,CABG x1, LAAL +- MAZE, +/- AVR/r on 12/[address] Shaw on 12/05/23, however presented to [place] ED 11/24/23 with worsening dyspnea and feeling that she could not wait until surgical date. She was transferred to [facility] for expedited surgical evaluation. Hospital Course: She was admitted to cardiac stepdown unit. CTS was consulted. Eliquis was held and she was started on heparin drip in anticipation of procedures. As part of CTS work up, she underwent vein mapping and CT chest. CT showed non-calcified 3 mm nodule right middle lung lobe; recommended repeat imaging in 12 months. She underwent ECHO that showed preserved biventricular function with only mild MR and AR. Dr. Shaw reviewed case and recommended no surgical intervention at this time and consult to Interventional Cardiology for ISR of prox RCA. On 12/01, she underwent successful IVUS guided PCI to the proximal RCA with a 4.0 x 18 mm Xience BRITTNEY via right radial artery with Dr. Tyler. Per Interventional Cardiology, plan for triple therapy x7 days, then OK to stop ASA and continue Plavix AND Eliquis. She was monitored overnight following procedure. She remained hemodynamically stable and was determined to be safe for discharge. Consults: Cardiac Surgery Major Procedure or Operation: PROCEDURES PERFORMED: -Successful IVUS guided PCI to the proximal RCA with a 4.0 x 18 mm Xience BRITTNEY, post-dilated with a 4.0 x 15 mm NC Takeru balloon. Other Procedures, Testing AND Radiology: Vein Mapping, CT chest, ECHO AND EKG Patient Condition at Discharge: Stable Disposition: Home with Self Care Information Provided to the Patient: Patient given copy of After Visit Summary which included activity instructions, diet instructions, wound care instructions, medication instructions and follow up appointment. ALLERGIES Allergen Reactions Serina Inhibitors Rash, Hives Amlodipine Swelling Codeine Vomiting Dilaudid [Hydromorp* Vomiting Meperidine Vomiting Morphine Vomiting Neurontin [Gabapent* Mental Status Change Discharge Medications: Medication List START taking these medications aspirin 81 mg chewable tablet Take 1 tablet by mouth once daily for 6 doses. Patient should start on December 04, 2023. Replaces: aspirin 81 mg Cap clopidogrel 75 mg tablet Commonly known as: PLAVIX Take 1 tablet by mouth once daily. KLOR-CON M20 20 mEq tablet Generic drug: potassium chloride ER Take 1 tablet by mouth once daily as needed (take only if taking a dose of lasix for weight gain/swelling). Replaces: potassium chloride SR 8 mEq Cper CHANGE how you take these medications ELIQUIS 5 mg tab(s) Generic drug: apixaban Take 1 tablet by mouth two times a day. What changed: how much to take when to take this escitalopram oxalate 10 mg tablet Commonly known as: LEXAPRO Take 1 tablet by mouth once daily. What changed: when to take this furosemide 40 mg tablet Commonly known as: LASIX Take 1 tablet by mouth once daily as needed (for >2lb weight gain in 1 day or >5 lb in 1 week, call numerical control machine machinist if taking this). What changed: medication strength how much to take when to take this reasons to take this isosorbide mononitrate ER 30 mg 24 hr tablet Commonly known as: IMDUR Take 1 tablet by mouth once daily. What changed: when to take this liothyronine 5 mcg tablet Commonly known as: CYTOMEL Take 1 tablet by mouth daily before breakfast. What changed: when to take this CONTINUE taking these medications amiodarone 200 mg tablet Commonly known as: PACERONE Take a half tablet by mouth once daily. atorvastatin 40 mg tablet Commonly known as: LIPITOR Take 1 tablet by mouth once daily. hydrALAZINE 25 mg tablet Commonly known as: APRESOLINE Take 1 tablet by mouth two times a day. pantoprazole DR 40 mg t (more content not included)... Normal [facility] Comprehensive metabolic 2000 panelon 12-03-2023 Albumin [Mass/Vol] 4.3 g/dL Normal 3.9-4.9 [facility] Comment on above: Order Comment: Speci men Type: BLOOD SPECIMENOrdering Facility: [facility] Address: [address] [place] [address] [place] [address] Performed By: #### 2 4323-8, ####[facility] [id number] [facility] [address] [address] [place] ALP [Catalytic activity/Vol] 99 U/L Normal 34-123 [facility] Comment on above: Order Comment: Speci men Type: BLOOD SPECIMENOrdering Facility: [facility] Address: [address] [place], [place] [address] Performed By: #### 2 4322-8, ####[facility] [id number] [address] [address] [place] ALT [Catalytic activity/Vol] 22 U/L Normal 7-38 [facility] Comment on above: Order Comment: Speci men Type: BLOOD SPECIMENOrdering Facility: [facility] Address: [address] [place] [address] Performed By: #### 2 4323-03, ####[facility] [id number] [address] [address] [place] Anion gap [Moles/Vol] 12 mmol/L Normal 9-18 [facility] Comment on above: Order Comment: Speci men Type: BLOOD SPECIMENOrdering Facility: [facility] Address: [address] [place], [place] [address] Performed By: #### 2 8, ####[facility] [id number] [address] [address] [place] AST [Catalytic activity/Vol] 20 U/L Normal 13-35 [facility] Comment on above: Order Comment: Speci men Type: BLOOD SPECIMENOrdering Facility: [facility] Address: [address] [place] [address] Performed By: #### 2 4323-8, ####[facility] [id number] [address] [address] [place] Bilirubin [Mass/Vol] 0.8 mg/dL Normal 0.2-1.3 [facility] Comment on above: Order Comment: Speci men Type: BLOOD SPECIMENOrdering Facility: [facility] Address: [address] [place] [address] Performed By: #### 2 4323-8, ####[facility] [id number] [place] [address] [place] Calcium [Mass/Vol] 10.3 mg/dL High 8.5-10.2 [facility] Comment on above: Order Comment: Speci men Type: BLOOD SPECIMENOrdering Facility: [facility] Address: [address] [place] [address] Performed By: #### 2 4323-8, ####[facility] [id number] [place] [address] [place] Chloride [Moles/Vol] 99 mmol/L Normal 97-105 [facility] Comment on above: Order Comment: Speci men Type: BLOOD SPECIMENOrdering Facility: [facility] Address: [address] [place] [address] Performed By: #### 2 432-8, ####[facility] [id number] [place] [address] [place] CO2 [Moles/Vol] 24 mmol/L Normal 22-30 [facility] Comment on above: Order Comment: Speci men Type: BLOOD SPECIMENOrdering Facility: [facility] Address: [address] [place], [place] [address] Performed By: #### 2 4323-8, ####[facility] [id number] [place] [id number] [place] Creatinine [Mass/Vol] 1.83 mg/dL High 0.58-0.96 [facility] Comment on above: Order Comment: Speci men Type: BLOOD SPECIMENOrdering Facility: [facility] Address: [address] [place], [place] [address] Performed By: #### 2 4323-8, ####[facility] [id number] [place] [address] [place] Creatinine and Glomerular filtration rate.predicted panel (S/P/Bld) 28 mL/min/1.73m??? Low >=60 [facility] Comment on above: Order Comment: Tremayne bill Type: BLOOD SPECIMENOrdering Facility: [facility] Address: [address] [place] [address] Result Comment: Amy mated Glomerular Filtration Rate [...] accurately reflect actual GFR. Performed By: #### 2 4323-8, ####[facility] [id number] [place] [id number] [place] Glucose [Mass/Vol] 105 mg/dL High 74-99 [facility] Comment on above: Order Comment: Tremayne fly Type: BLOOD SPECIMENOrdering Facility: [facility] Address: [address] [place] [address] Result Comment: The [place] [employer] Association (ADA) provides guidance for cutoff [...] Standards of Medical Care in Diabetes 2016, [place] [employer]. Diabetes Care. 2016.39(Suppl 1). Performed By: #### 2 4323-8, 29975-6 ####[facility] [id number] [address] [address] [place] Potassium [Moles/Vol] 4.3 mmol/L Normal 3.7-5.1 [facility] Comment on above: Order Comment: Speci men Type: BLOOD SPECIMENOrdering Facility: [facility] Address: [address] [place] [address] Performed By: #### 2 432-8, ####[facility] [id number] [place] [address] [place] Protein [Mass/Vol] 7.1 g/dL Normal 6.3-8.0 [facility] Comment on above: Order Comment: Speci men Type: BLOOD SPECIMENOrdering Facility: [facility] Address: [address] [place] [address] Performed By: #### 2 4328, ####[facility] [id number] [place] [address] [place] Sodium [Moles/Vol] 135 mmol/L Low 136-144 [facility] Comment on above: Order Comment: Speci men Type: BLOOD SPECIMENOrdering Facility: [facility] Address: [address] [place] [address] Performed By: #### 2 432-8, ####[facility] [id number] [address] [address] [place] Urea nitrogen [Mass/Vol] 32 mg/dL High 7-21 [facility] Comment on above: Order Comment: Speci men Type: BLOOD SPECIMENOrdering Facility: [facility] Address: [address] [place], [place] [address] Performed By: #### 2 4323-8, 19174-4 ####[facility] [id number] [place] [id number] [place] Magnesium SerPl-mCncon 12-02 Magnesium [Mass/Vol] 2.3 mg/dL Normal 1.7-2.3 [facility] Comment on above: Order Comment: Speci men Type: BLOOD SPECIMENOrdering Facility: [facility] Address: [address] [place] [address] Performed By: #### 2 4323-8, 24512-5 ####[facility] [id number] [place] [address] [place] NUTRITIONon 12-03-2023 NUTRITION HNO ID: [id number] Author: THUY RIVERA RD Service: Nutrition Therapy Author Type: Registered Dietitian Type: Nutrition Filed: 12/03/2023 15:32 Note Text: NUTRITION THERAPY PROGRESS NOTE SERVICE DATE: 12/03/2023 SERVICE TIME: 1255 Nutrition Assessment: Recommended Malnutrition Diagnosis: No Malnutrition Identified (11/26/23 1305 : Rebeka Garcia RD) Estimated kilocalorie needs: 6473-1985 Calorie Calculation Method: 25-30 kcals/kg, [place] Body Weight Estimated protein needs (grams): 65-82 Grams protein determined by: 1.2 - 1.5 g/kg, [place] body weight Care Plan: Continue current diet Heart Healthy Supplements: Ensure Max Refer to: [employer] Machine Operator to Follow Medications: (anti-emetics and bowel regimen PRN) Monitor and Evaluation: Meet greater than 75% of estimated needs, Monitor fluid/electrolyte balance, Monitor labs, I/Os, vital signs, weight, Monitor bowel function Discharge Recommendations: Diet;Oral Supplements Diet: Heart Healthy diet Oral Supplements: ONS of choice at least once daily to help meet estimated nutrition needs Anthropometrics: Weight: 77.9 kg (171 lb 11.8 oz) Dosing Weight: 54.5 kg (120 lb 2.4 oz) Body mass index is 29.48 kg/m?. Intake History: Current Nutrition Intake: Greater than 75% estimated energy needs Current Intake Over time: Greater than or equal to 5 days - Pt reports having an appetite however, tired of the same things all the time - Has continued receiving heart healthy diet in which pt has tolerated well. Per intake documentation, pt has had about 92% of meals on average - Pt endorses feeling queasy if she eats too much at once - Pt accepting of ONS- requests decreasing administration to once daily Diet Orders (From admission, onward) Start Ordered 12/02/23 1815 DIET HEART HEALTHY START NOW Question: Heart Healthy Answer: 4 GM SODIUM (LOW SAT FAT) 12/02/23 1805 11/26/23 1500 SUPPLEMENT/SNACK PROVIDED START NOW Question Answer Comment Supplement 1 (19 years and up) ENSURE MAX CHOCOLATE Supplement 1 Frequency TWICE DAILY WITH MEALS 11/26/23 1450 GI Symptoms: Constipation;Nausea Stool Amount: Unchanged (last BM recorded 11/29) MNT Billing: $ Reassessment: 1-15 minutes SIGNATURE: Esther Wilson RD PATIENT NAME: Cece Hubbard DATE: December 03, 2023 TIME: 2:43 PM NUTRITION THERAPY : TEACHING DIETITIAN NOTE OF PERSONAL INVOLVEMENT OF CARE. I have reviewed the Progress Note note obtained and documented by the dietitian. I have discussed the case and management of the patient?s nutrition therapy with them. SIGNATURE: Thuy Rivera RD DATE: 12/03/2023 3:31 PM Normal [facility] PTT, ANTICOAGULANT THERAPYon 12-03-2023 aPTT Coag (PPP) [Time] 30.7 s Normal 23.0-32.4 [facility] Comment on above: Order Comment: Speci men Type: BLOOD SPECIMEN Ordering Facility: [facility] Address: [address] [place] [address] Performed By: #### 3 4528-0, PTTAC #### [facility] CLIA [id number] [address] [place], [place] [address] [address] [place] CARD CATH INTERVENTon 2023 CARD CATH INTERVENT Site Id: [id number] Lab #: [facility]VI Supervisor Laundry 5 Study Date: 12/02/2023 Start Time: 12/02/2023 5:01:34 PM End Time: 12/02/2023 6:09:26 PM Physician Name Song Tyler M.D., Nicholas M.D. Nursing/Tech Clover Aguilar R.N., K. R.N. Yeager, M R.N. + + PATIENT INFORMATION + + Name: CECE HUBBARD : 1945 Age: 78 years Gender: F Height: 64 in / 163 cm Weight: 171.74 lb / 77.90 kg BMI: 29.32 kg/m BSA: 1.84 m Allergies: YES : SEE EPIC + ---+ CLINICAL HISTORY/INDICATIONS + ---+ AUC: One or two vessel coronary artery disease without involvement of proximal left anterior descending artery. CCS angina class III or IV with no noninvasive testing performed. AUC score = 7. Exam Status: Elective Clinical History: Ms. Hubbard is a 78 year old female with a history of HTN, CAD status post PCI to LAD and RCA 2020, HFpEF, MR, AR hypothyroidism who presents with direct PCI to the RCA. DIAGNOSTIC ANGIOGRAPHY Diagnostic angiography showed severe 90% ISR of the proximal RCA. Please see the separate diagnostic angiography report for full details. + + PCI SUMMARY + + Procedures Performed: -Successful IVUS guided PCI to the proximal RCA with a 4.0 x 18 mm Xience BRITTNEY, post-dilated with a 4.0 x 15 mm NC Takeru balloon. Procedural Details: + +----- + ------+ Entry Site(SR) Sheath Size(SR) Hemostasis Method(SR) + +----- + ------+ Right Radial Artery 6F Short Radial TR band + +----- + ------+ Procedure Narrative: Lesion 1: RCA Proximal Guide 1: 6FR AL 0.75. Procedure Summary: Access: 6 Fr right radial artery Guide Catheter(s): 6 Fr AL 0.75 Guidewire(s): debra blue Other Equipment: HD IVUS 6 Fr Hemostasis: TR band Anticoagulation: UFH Additional Procedural Medications: Sedation, nitroglycerin PROCEDURAL NARRATIVE: We engaged the RCA with the 6 Fr AL 0.75 guide catheter. After administering heparin to a goal ACT of >250s, we advanced a debra blue coronary wire to the distal RCA. - PTCA with a 2.0 x 15 mm semi-compliant balloon Emerge - Intracoronary imaging with HD IVUS for stent sizing and length - Stenting to the proximal RCA with a 4.0 x 18 mm Xience BRITTNEY - Post-dilation with a 4.0 x 15 mm NC Takeru balloon. - Intracoronary imaging with HD IVUS revealed optimal stent edges, MSA, and apposition. Final angiography showed no evidence of dissection or perforation. There was DEWAYNE 3 flow and 0% residual stenosis. + + PROCEDURAL OUTCOME + + +-------+ IMAGING +-------+ INTRAVASCULAR ULTRASOUND Run 1, RCA Proximal _ Performed before pre-dilation for lesion evaluation, lesion length and stent evaluation _ Findings- Fibrous plaque _ MLA (mm2)- NA. + + HEMODYNAMIC INTERROGATION + + Hemodynamic interrogation not performed. + ---------+ ADVERSE OUTCOME(s)/COMPLICATION(s) + ---------+ None +----+ PLAN +----+ 1. ASA 81mg daily for 7 days 2. Clopidogrel 75 mg daily indefinitely. 3. Resume anticoagulation 6 hours post PCI (triple therapy for 7 days) 4. Cardiac rehabilitation. 5. Transferred to cardiac stepdown in stable condition Disposition: + -----+ PROCEDURAL & TECHNICAL DETAILS + -----+ Contrast: Contrast Type Total Infused Omnipaque 150ml 12 Radiation: Procedure performed under Fluoroscopic Guidance Total Dose 96.73 mGy Dose Area Product 6.03 Gy*cm Total Exposure Time 1034.00 sec Lesion Pre Stenosis Post Stenosis Pre Dewayne Score Post Dewayne Score RCA Proximal 90.00 0 3 3 NULL NULL NULL NULL NULL NULL + + MEDICAL HISTORY + + CAD Presentation: Symptoms Likely to be Ischemic STEMI Reason for Delay: NA Ionotropes or MCS: None Cardiac Arrest this Admission Prior to PCI: No Moderate or Severe Aortic Stenosis: No Surgical Turndown for CABG or Heart Surgery: No [facility] Clinical Frailty Scale: 6: Moderately Frail Acute Heart Failure Symptoms: No Persistent Ischemic Symptoms: No Ventricular Arrhythmias: No Hemodynamic Instability : No Cardiogenic Shock Symptoms: No Refractory Cardiogenic Shock: No Angina Classification (within 2 weeks): CCS III Anti-Angina Meds (within 2 weeks): Yes. Heart Failure: NYHA Class I No Cardiomyopathy - No LV Dysfunction No Cardiogenic Shock: No Cardiac Arrest: No Left Ventricle EF: LVEF 63, last assessed on 11/28/2023, by Echo. Procedure Details: Procedure Performed Drug Eluting Stent IVUS / ICUS - Cardiac Blood Loss: < 30ml Specimen: No Specimen Obtained R (more content not included)... Normal [facility] panel Auto (Bld)on 12-01 Erythrocyte distribution width (RBC) [Ratio] 14.6 % Normal 11.5-15.0 [facility] Comment on above: Order Comment: Speci men Type: BLOOD SPECIMENOrdering Facility: [facility] Address: [address] [place] [address] Performed By: #### 5 8410-2 ####[facility]IA [id number] [place] [address] [place] Hematocrit (Bld) [Volume fraction] 43.3 % Normal 36.0-46.0 [facility] Comment on above: Order Comment: Speci men Type: BLOOD SPECIMENOrdering Facility: [facility] Address: [address] [place] [address] Performed By: #### 5 8410-2 ####[facility] [id number] [place] [address] [place] Hemoglobin (Bld) [Mass/Vol] 14.6 g/dL Normal 11.5-15.5 [facility] Comment on above: Order Comment: Speci men Type: BLOOD SPECIMENOrdering Facility: [facility] Address: [address] [place] [address] Performed By: #### 5 8410-2 ####[facility]IA [id number] [place] [address] [place] MCH (RBC) [Entitic mass] 31.9 pg Normal 26.0-34.0 [facility] Comment on above: Order Comment: Speci men Type: BLOOD SPECIMENOrdering Facility: [facility] Address: [address] [place] [address] Performed By: #### 5 8410-2 ####[facility] [id number] [place] [address] [place] MCHC (RBC) [Mass/Vol] 33.7 g/dL Normal 30.5-36.0 [facility] Comment on above: Order Comment: Speci men Type: BLOOD SPECIMENOrdering Facility: [facility] Address: [address] [place] [address] Performed By: #### 5 8410-2 ####[facility]IA [id number] [place] [address] [place] MCV (RBC) [Entitic vol] 94.5 fL Normal 80.0-100.0 [facility] Comment on above: Order Comment: Speci men Type: BLOOD SPECIMENOrdering Facility: [facility] Address: [address] [place] [address] Performed By: #### 5 8410-2 ####[facility] [id number] [place] [address] [place] Nucleated RBC (Bld) [#/Vol] 10*3/uL Normal <0.01 [facility] Comment on above: Order Comment: Speci men Type: BLOOD SPECIMENOrdering Facility: [facility] Address: [address] [place] [address] Performed By: #### 5 8410-2 ####[facility]IA [id number] [place] [address] [place] Platelet mean volume (Bld) [Entitic vol] 11.1 fL Normal 9.0-12.7 [facility] Comment on above: Order Comment: Speci men Type: BLOOD SPECIMENOrdering Facility: [facility] Address: [address] [place] [address] Performed By: #### 5 8410-2 ####[facility]IA [id number] [place] [address] [place] Platelets (Bld) [#/Vol] 181 10*3/uL Normal 150-400 [facility] Comment on above: Order Comment: Speci men Type: BLOOD SPECIMENOrdering Facility: [facility] Address: [address] [place] [address] Performed By: #### 5 8410-2 ####[facility]CLIA [id number] [address] [address] [place] RBC (Bld) [#/Vol] 4.58 10*6/uL Normal 3.90-5.[address] [facility] Comment on above: Order Comment: Speci men Type: BLOOD SPECIMENOrdering Facility: [facility] Address: [address] [place] [address] Performed By: #### 5 8410-2 ####[facility]CLIA [id number] [address] [address] [place] WBC (Bld) [#/Vol] 5.45 10*3/uL Normal 3.70-11.[address] [facility] Comment on above: Order Comment: Speci men Type: BLOOD SPECIMENOrdering Facility: [facility] Address: [address] [place] [address] Performed By: #### 5 8410-2 ####[facility]CLIA [id number] [place] [address] [place] Comprehensive metabolic 2000 panelon 12-02-2023 Albumin [Mass/Vol] 4.4 g/dL Normal 3.9-4.9 [facility] Comment on above: Order Comment: Speci men Type: BLOOD SPECIMENOrdering Facility: [facility] Address: [address] [place] [address] Performed By: #### 2 4323-8, 89888-5 ####[facility]CLIA [id number] [place] [id number] [place] ALP [Catalytic activity/Vol] 107 U/L Normal 34-123 [facility] Comment on above: Order Comment: Speci men Type: BLOOD SPECIMENOrdering Facility: [facility] Address: [address] [place] [address] Performed By: #### 2 4323-8, ####[facility]CLIA [id number] [place] [id number] [place] ALT [Catalytic activity/Vol] 30 U/L Normal 7-38 [facility] Comment on above: Order Comment: Speci men Type: BLOOD SPECIMENOrdering Facility: [facility] Address: [address] [place] [address] Performed By: #### 2 4323-8, ####[facility]CLIA [id number] [place] [address] [place] Anion gap [Moles/Vol] 15 mmol/L Normal 9-18 [facility] Comment on above: Order Comment: Speci men Type: BLOOD SPECIMENOrdering Facility: [facility] Address: [address] [place] [address] Performed By: #### 2 4323-8, ####[facility]CLIA [id number] [place] [address] [place] AST [Catalytic activity/Vol] 23 U/L Normal 13-35 [facility] Comment on above: Order Comment: Speci men Type: BLOOD SPECIMENOrdering Facility: [facility] Address: [address] [place] [address] Performed By: #### 2 4323-8, ####[facility]CLIA [id number] [place] [address] [place] Bilirubin [Mass/Vol] 0.8 mg/dL Normal 0.2-1.3 [facility] Comment on above: Order Comment: Speci men Type: BLOOD SPECIMENOrdering Facility: [facility] Address: [address] [place] [address] Performed By: #### 2 4323-8, ####[facility]CLIA [id number] [place] [id number] [place] Calcium [Mass/Vol] 10.6 mg/dL High 8.5-10.2 [facility] Comment on above: Order Comment: Speci men Type: BLOOD SPECIMENOrdering Facility: [facility] Address: [address] [place], [place] [address] Performed By: #### 2 4323-8, ####[facility]CLIA [id number] [address] [address] [place] Chloride [Moles/Vol] 98 mmol/L Normal 97-105 [facility] Comment on above: Order Comment: Speci men Type: BLOOD SPECIMENOrdering Facility: [facility] Address: [address] [place] [address] Performed By: #### 2 4323-8, ####[facility]CLIA [id number] [place] [address] [place] CO2 [Moles/Vol] 23 mmol/L Normal 22-30 [facility] Comment on above: Order Comment: Speci men Type: BLOOD SPECIMENOrdering Facility: [facility] Address: [address] [place] [address] Performed By: #### 2 4323-8, ####[facility]CLIA [id number] [place] [address] [place] Creatinine [Mass/Vol] 2.05 mg/dL High 0.58-0.96 [facility] Comment on above: Order Comment: Speci men Type: BLOOD SPECIMENOrdering Facility: [facility] Address: [address] [place] [address] Performed By: #### 2 4323-8, ####[facility]CLIA [id number] [place] [address] [place] Creatinine and Glomerular filtration rate.predicted panel (S/P/Bld) 25 mL/min/1.73m??? Low >=60 [facility] Comment on above: Order Comment: Speci men Type: BLOOD SPECIMENOrdering Facility: [facility] Address: [address] [place] [address] Result Comment: Amy mated Glomerular Filtration Rate [...] accurately reflect actual GFR. Performed By: #### 2 4323-8, ####[facility]IA [id number] [place] [address] [place] Glucose [Mass/Vol] 117 mg/dL High 74-99 [facility] Comment on above: Order Comment: Speci men Type: BLOOD SPECIMENOrdering Facility: [facility] Address: [address] [place] [address] Result Comment: The [place] [employer] (ADA) provides guidance for cutoff [...] Standards of Medical Care in Diabetes 2016, [place] [employer]. Diabetes Care. 2016.39(Suppl 1). Performed By: #### 2 4323-8, ####[facility]IA [id number] [place] [id number] [place] Potassium [Moles/Vol] 4.3 mmol/L Normal 3.7-5.1 [facility] Comment on above: Order Comment: Speci men Type: BLOOD SPECIMENOrdering Facility: [facility] Address: [address] [place] [address] Performed By: #### 2 432-8, ####[facility]CLIA [id number] [address] [address] [place] Protein [Mass/Vol] 7.5 g/dL Normal 6.3-8.0 [facility] Comment on above: Order Comment: Speci men Type: BLOOD SPECIMENOrdering Facility: [facility] Address: [address] [place] [address] Performed By: #### 2 8, ####[facility]CLIA [id number] [place] [id number] [place] Sodium [Moles/Vol] 136 mmol/L Normal 136-144 [facility] Comment on above: Order Comment: Speci men Type: BLOOD SPECIMENOrdering Facility: [facility] Address: [address] [place] [address] Performed By: #### 2 4323-03, ####[facility]CLIA [id number] [place] [address] [place] Urea nitrogen [Mass/Vol] 32 mg/dL High 7-21 [facility] Comment on above: Order Comment: Speci men Type: BLOOD SPECIMENOrdering Facility: [facility] Address: [address] [place] [address] Performed By: #### 2 4328, ####[facility]CLIA [id number] [place] [id number] [place] Magnesium SerPl-mCncon 12-01 Magnesium [Mass/Vol] 2.3 mg/dL Normal 1.7-2.3 [facility] Comment on above: Order Comment: Speci men Type: BLOOD SPECIMENOrdering Facility: [facility] Address: [address] [place] [address] Performed By: #### 2 4323-8, ####[facility]CLIA [id number] [place] [address] [address] [place] PT EDon 12-02-2023 PT ED HNO ID: [id number] Author: ZEINA CHAVEZ RN Service: Nursing Author Type: Registered Nurse Type: Patient Education Filed: 12/02/2023 16:31 Note Text: THE FOLLOWING WAS EVALUATED Motivation To Learn: Eager Family/Significant Other Support: None - Unavailable/disinterested Cognitive Ability: Alert and oriented Patient Learns Best By: Individual Instruction The Following Influencing Factors Were Barriers To This Education Session: None The Following Physical Limitations Were Barriers To This Education Session: None Instruction Provided To: Patient Procedure: PCI / STENT Pre procedure information reviewed: Patient ID verified Allergies verified Procedure verified Physician verified Explanation of procedure Procedure Sedation Pre procedure medication instructions for anticoagulants Diabetic Medications Radiology Procedures Diet Restrictions Travel instructions/restrictions Scheduling information Overnight stay procedure Check out time Family waiting area Physician contact with family after procedure Post Procedure Expectations reviewed: Inpatient hospital stay Medication instructions for anticoagulants Contact number for information and questions Patient Evaluation: Verbalizes understanding Follow Up Plan: Follow up as directed by MD. Supplemental Material Given: None Instructed By Zeina Chavez RN. In Department of [id number]. Normal [facility] PT panel Coag (PPP)on 2023 INR Coag (PPP) [Relative time] 1.0 {INR} Normal 0.9-1.3 [facility] Comment on above: Order Comment: Speci men Type: BLOOD SPECIMENOrdering Facility: [facility] Address: [address] [place] [address] Result Comment: Janeth min K Antagonist (VKA) Therapeutic Range: INR 2 to 3 (Target INR of 2.5) Note: For patients treated with VKA drugs, such as warfarin, the [place] [employer] 2012 Guideline recommends [...] to 3.5 (target INR of 3). Matteo GH, et al. Chest 2012, 141:7S-47S Mary RA, et al. [facility] 2017, 70: 252-289 Performed By: #### 3 4528-0 ####[facility]CLIA [id number] [place] [address] [place] PT Coag (PPP) [Time] 10.8 s Normal 9.7-13.0 [facility] Comment on above: Order Comment: Speci men Type: BLOOD SPECIMENOrdering Facility: [facility] Address: [address] [place] [address] Performed By: #### 3 4528-0 ####[facility]CLIA [id number] [place] [address] [place] PTT, ANTICOAGULANT THERAPYon 12-02-2023 aPTT Coag (PPP) [Time] 28.8 s Normal 23.0-32.4 [facility] Comment on above: Order Comment: Speci men Type: BLOOD SPECIMENOrdering Facility: [facility] Address: [address] [place] [address] Performed By: #### P TTAC ####[facility]CLIA [id number] [place] [address] [place] aPTT Coag (PPP) [Time] 69.2 s High 23.0-32.4 [facility] Comment on above: Order Comment: Speci men Type: BLOOD SPECIMEN [facility] Address: [address] [place] [address] Performed By: #### 3 4528-0, PTTAC #### [facility] CLIA [id number] [address] [place] [address] [place] CBC panel Auto (Bld)on 11-30 Erythrocyte distribution width (RBC) [Ratio] 14.6 % Normal 11.5-15.0 [facility] Comment on above: Order Comment: Speci men Type: BLOOD SPECIMENOrdering Facility: [facility] Address: [address] [place] [address] Performed By: #### 5 8410-2 ####[facility]IA [id number] [place] [address] [place] Hematocrit (Bld) [Volume fraction] 42.2 % Normal 36.0-46.0 [facility] Comment on above: Order Comment: Speci men Type: BLOOD SPECIMENOrdering Facility: [facility] Address: [address] [place] [address] Performed By: #### 5 8410-2 ####[facility]IA [id number] [place] [address] [place] Hemoglobin (Bld) [Mass/Vol] 14.2 g/dL Normal 11.5-15.5 [facility] Comment on above: Order Comment: Speci men Type: BLOOD SPECIMENOrdering Facility: [facility] Address: [address] [place] [address] Performed By: #### 5 8410-2 ####[facility]IA [id number] [place] [address] [place] MCH (RBC) [Entitic mass] 31.9 pg Normal 26.0-34.0 [facility] Comment on above: Order Comment: Speci men Type: BLOOD SPECIMENOrdering Facility: [facility] Address: [address] [place] [address] Performed By: #### 5 8410-2 ####[facility]IA [id number] [place] [address] [place] MCHC (RBC) [Mass/Vol] 33.6 g/dL Normal 30.5-36.0 [facility] Comment on above: Order Comment: Speci men Type: BLOOD SPECIMENOrdering Facility: [facility] Address: [address] [place] [address] Performed By: #### 5 8410-2 ####[facility]CLIA [id number] [place] [address] [place] MCV (RBC) [Entitic vol] 94.8 fL Normal 80.0-100.0 [facility] Comment on above: Order Comment: Speci men Type: BLOOD SPECIMENOrdering Facility: [facility] Address: [address] [place] [address] Performed By: #### 5 8410-2 ####[facility]IA [id number] [place] [address] [place] Nucleated RBC (Bld) [#/Vol] 10*3/uL Normal <0.01 [facility] Comment on above: Order Comment: Speci men Type: BLOOD SPECIMENOrdering Facility: [facility] Address: [address] [place] [address] Performed By: #### 5 8410-2 ####[facility] LABIA [id number] [place] [address] [place] Platelet mean volume (Bld) [Entitic vol] 10.9 fL Normal 9.0-12.7 [facility] Comment on above: Order Comment: Speci men Type: BLOOD SPECIMENOrdering Facility: [facility] Address: [address] [place] [address] Performed By: #### 5 8410-2 ####[facility] LABIA [id number] [place] [address] [place] Platelets (Bld) [#/Vol] 184 10*3/uL Normal 150-400 [facility] Comment on above: Order Comment: Speci men Type: BLOOD SPECIMENOrdering Facility: [facility] Address: [address] [place] [address] Performed By: #### 5 8410-2 ####[facility]IA [id number] [place] [address] [place] RBC (Bld) [#/Vol] 4.45 10*6/uL Normal 3.90-5.[address] [facility] Comment on above: Order Comment: Speci men Type: BLOOD SPECIMENOrdering Facility: [facility] Address: [address] [place] [address] Performed By: #### 5 8410-2 ####[facility]CLIA [id number] [place] [address] [place] WBC (Bld) [#/Vol] 4.96 10*3/uL Normal 3.70-11.[address] [facility] Comment on above: Order Comment: Speci men Type: BLOOD SPECIMENOrdering Facility: [facility] Address: [address] [place] [address] Performed By: #### 5 8410-2 ####[facility] LABCLIA [id number] [place] [address] [place] Comprehensive metabolic 2000 panelon 12-01-2023 Albumin [Mass/Vol] 4.7 g/dL Normal 3.9-4.9 [facility] Comment on above: Order Comment: Speci men Type: BLOOD SPECIMENOrdering Facility: [facility] Address: [address] [place] [address] Performed By: #### 2 4323-8, ####[facility] LABCLIA [id number] [place] [address] [place] ALP [Catalytic activity/Vol] 103 U/L Normal 34-123 [facility] Comment on above: Order Comment: Speci men Type: BLOOD SPECIMENOrdering Facility: [facility] Address: [address] [place] [address] Performed By: #### 2 4323-8, ####[facility] LABCLIA [id number] [place] [address] [place] ALT [Catalytic activity/Vol] 32 U/L Normal 7-38 [facility] Comment on above: Order Comment: Speci men Type: BLOOD SPECIMENOrdering Facility: [facility] Address: [address] [id number] Performed By: #### 2 4323-8, ####[facility] LABCLIA [id number] [place] [id number] [place] Anion gap [Moles/Vol] 15 mmol/L Normal 9-18 [facility] Comment on above: Order Comment: Speci men Type: BLOOD SPECIMENOrdering Facility: [facility] Address: [address] [place] [address] Performed By: #### 2 4323-8, ####[facility] LABCLIA [id number] [place] [address] [place] AST [Catalytic activity/Vol] 32 U/L Normal 13-35 [facility] Comment on above: Order Comment: Speci men Type: BLOOD SPECIMENOrdering Facility: [facility] Address: [address] [place], [place] [address] Performed By: #### 2 4323-8, ####[facility] LABCLIA [id number] [place] [address] [place] Bilirubin [Mass/Vol] 1.0 mg/dL Normal 0.2-1.3 [facility] Comment on above: Order Comment: Speci men Type: BLOOD SPECIMENOrdering Facility: [facility] Address: [address] [place], [place] [address] Performed By: #### 2 4323-8, ####[facility] LABCLIA [id number] [place] [id number] [place] Calcium [Mass/Vol] 10.6 mg/dL High 8.5-10.2 [facility] Comment on above: Order Comment: Speci men Type: BLOOD SPECIMENOrdering Facility: [facility] Address: [address] [place], [place] [address] Performed By: #### 2 4323-8, ####[facility] LABCLIA [id number] [facility] [place] [id number] [place] Chloride [Moles/Vol] 98 mmol/L Normal 97-105 [facility] Comment on above: Order Comment: Speci men Type: BLOOD SPECIMENOrdering Facility: [facility] Address: [address] [place] [address] Performed By: #### 2 4323-8, ####[facility] LABCLIA [id number] [place] [address] [place] CO2 [Moles/Vol] 25 mmol/L Normal 22-30 [facility] Comment on above: Order Comment: Speci men Type: BLOOD SPECIMENOrdering Facility: [facility] Address: [address] [place] [address] Performed By: #### 2 4323-8, ####[facility] LABCLIA [id number] [place] [address] [place] Creatinine [Mass/Vol] 1.98 mg/dL High 0.58-0.96 [facility] Comment on above: Order Comment: Speci men Type: BLOOD SPECIMENOrdering Facility: [facility] Address: [address] [place] [address] Performed By: #### 2 4323-8, ####[facility] LABIA [id number] [place] [address] [place] Creatinine and Glomerular filtration rate.predicted panel (S/P/Bld) 26 mL/min/1.73m??? Low >=60 [facility] Comment on above: Order Comment: Speci men Type: BLOOD SPECIMENOrdering Facility: [facility] Address: [address] [place] [address] Result Comment: Amy mated Glomerular Filtration Rate [...] accurately reflect actual GFR. Performed By: #### 2 432-, ####[facility] LABCLIA [id number] [address] [address] [place] Glucose [Mass/Vol] 110 mg/dL High 74-99 [facility] Comment on above: Order Comment: Speci men Type: BLOOD SPECIMENOrdering Facility: [facility] Address: [address] [place] [address] Result Comment: The [place] [employer] (ADA) provides guidance for cutoff [...] Standards of Medical Care in Diabetes 2016, [place] [employer]. Diabetes Care. 2016.39(Suppl 1). Performed By: #### 2 4323-03, ####[facility] LABCLIA [id number] [place] [id number] [place] Potassium [Moles/Vol] 4.5 mmol/L Normal 3.7-5.1 [facility] Comment on above: Order Comment: Tremayne men Type: BLOOD SPECIMENOrdering Facility: [facility] Address: [address] [place] [address] Performed By: #### 2 43210-16, ####[facility] LABCLIA [id number] [address] [address] [place] Protein [Mass/Vol] 7.7 g/dL Normal 6.3-8.0 [facility] Comment on above: Order Comment: Speci men Type: BLOOD SPECIMENOrdering Facility: [facility] Address: [address] [place] [address] Performed By: #### 2 432-8, ####[facility] LABCLIA [id number] [place] [address] [place] Sodium [Moles/Vol] 138 mmol/L Normal 136-144 [facility] Comment on above: Order Comment: Speci men Type: BLOOD SPECIMENOrdering Facility: [facility] Address: [address] [place] [address] Performed By: #### 2 432-8, ####[facility] LABCLIA [id number] [place] [address] [place] Urea nitrogen [Mass/Vol] 33 mg/dL High 7-21 [facility] Comment on above: Order Comment: Speci men Type: BLOOD SPECIMENOrdering Facility: [facility] Address: [address] [place] [address] Performed By: #### 2 4323-8, ####[facility] LABCLIA [id number] [place] [address] [place] Magnesium SerPl-mCncon 11-30 Magnesium [Mass/Vol] 2.3 mg/dL Normal 1.7-2.3 [facility] Comment on above: Order Comment: Speci men Type: BLOOD SPECIMENOrdering Facility: [facility] Address: [address] [place] [address] Performed By: #### 2 432-8, ####[facility] LABCLIA [id number] [place] [id number] [place] PT panel Coag (PPP)on 2023 INR Coag (PPP) [Relative time] 1.0 {INR} Normal 0.9-1.3 [facility] Comment on above: Order Comment: Tremayne bill Type: BLOOD SPECIMEN [facility] Address: [address] [place] [address] Result Comment: Janeth min K Antagonist (VKA) Therapeutic Range: INR 2 to 3 (Target INR of 2.5) Note: For patients treated with VKA drugs, such as warfarin, the [place] [employer] 2012 Guideline recommends [...] to 3.5 (target INR of 3). Matteo GH, et al. Chest 2012, 141:7S-47S Mary RA, et al. [facility] 2017, 70: 252-289 Performed By: #### 3 4528-0, PTTAC #### [facility] LAB CLIA [id number] [address] [place] [address] [place] PT Coag (PPP) [Time] 10.9 s Normal 9.7-13.0 [facility] Comment on above: Order Comment: Tremayne bill Type: BLOOD SPECIMEN [facility] Address: [address] [place] [address] Performed By: #### 3 4528-0, PTTAC #### [facility] LAB CLIA [id number] [address] [place] [address] [place] PTT, ANTICOAGULANT THERAPYon 12-01-2023 aPTT Coag (PPP) [Time] 57.5 s High 23.0-32.4 [facility] Comment on above: Order Comment: Tremayne bill Type: BLOOD SPECIMENOrdering Facility: [facility] Address: [address] [place] [address] Performed By: #### P TTAC ####[facility] LABCLIA [id number] [place] [address] [place] aPTT Coag (PPP) [Time] 53.8 s High 23.0-32.4 [facility] Comment on above: Order Comment: Speci men Type: BLOOD SPECIMENOrdering Facility: [facility] Address: [address] [place] [address] Performed By: #### P TTAC ####[facility] LABCLIA [id number] [place] [address] [place] aPTT Coag (PPP) [Time] 42.7 s High 23.0-32.4 [facility] Comment on above: Order Comment: Speci men Type: BLOOD SPECIMEN [facility] Address: [address] [place] [address] Performed By: #### 3 4528-0, PTTAC #### [facility] CLIA [id number] [address] [place] [address] [place] aPTT Coag (PPP) [Time] 70.3 s High 23.0-32.4 [facility] Comment on above: Order Comment: Speci men Type: BLOOD SPECIMENOrdering Facility: [facility] Address: [address] [place] [address] Performed By: #### P TTAC ####[facility] LABCLIA [id number] [place] [address] [place] CBC panel Auto (Bld)on 11-29 Erythrocyte distribution width (RBC) [Ratio] 14.6 % Normal 11.5-15.0 [facility] Comment on above: Order Comment: Speci men Type: BLOOD SPECIMENOrdering Facility: [facility] Address: [address] [place] [address] Performed By: #### 5 8410-2 ####[facility] LABCLIA [id number] [place] [address] [place] Hematocrit (Bld) [Volume fraction] 39.7 % Normal 36.0-46.0 [facility] Comment on above: Order Comment: Speci men Type: BLOOD SPECIMENOrdering Facility: [facility] Address: [address] [place] [address] Performed By: #### 5 8410-2 ####[facility] LABCLIA [id number] [place] [address] [place] Hemoglobin (Bld) [Mass/Vol] 13.4 g/dL Normal 11.5-15.5 [facility] Comment on above: Order Comment: Speci men Type: BLOOD SPECIMENOrdering Facility: [facility] Address: [address] [place] [address] Performed By: #### 5 8410-2 ####[facility] LABIA [id number] [place] [address] [place] MCH (RBC) [Entitic mass] 31.8 pg Normal 26.0-34.0 [facility] Comment on above: Order Comment: Speci men Type: BLOOD SPECIMENOrdering Facility: [facility] Address: [address] [place] [address] Performed By: #### 5 8410-2 ####[facility] LABIA [id number] [place] [address] [place] MCHC (RBC) [Mass/Vol] 33.8 g/dL Normal 30.5-36.0 [facility] Comment on above: Order Comment: Speci men Type: BLOOD SPECIMENOrdering Facility: [facility] Address: [address] [place] [address] Performed By: #### 5 8410-2 ####[facility] LABCLIA [id number] [place] [address] [place] MCV (RBC) [Entitic vol] 94.3 fL Normal 80.0-100.0 [facility] Comment on above: Order Comment: Speci men Type: BLOOD SPECIMENOrdering Facility: [facility] Address: [address] [place] [address] Performed By: #### 5 8410-2 ####[facility] LABCLIA [id number] [place] [address] [place] Nucleated RBC (Bld) [#/Vol] 10*3/uL Normal <0.01 [facility] Comment on above: Order Comment: Speci men Type: BLOOD SPECIMENOrdering Facility: [facility] Address: [address] [place] [address] Performed By: #### 5 8410-2 ####[facility] LABIA [id number] [place] [address] [place] Platelet mean volume (Bld) [Entitic vol] 11.1 fL Normal 9.0-12.7 [facility] Comment on above: Order Comment: Speci men Type: BLOOD SPECIMENOrdering Facility: [facility] Address: [address] [place] [address] Performed By: #### 5 8410-2 ####[facility] LABIA [id number] [place] [address] [place] Platelets (Bld) [#/Vol] 179 10*3/uL Normal 150-400 [facility] Comment on above: Order Comment: Speci men Type: BLOOD SPECIMENOrdering Facility: [facility] Address: [address] [place] [address] Performed By: #### 5 8410-2 ####[facility] LABIA [id number] [place] [address] [place] RBC (Bld) [#/Vol] 4.21 10*6/uL Normal 3.90-5.[address] [facility] Comment on above: Order Comment: Speci men Type: BLOOD SPECIMENOrdering Facility: [facility] Address: [address] [place] [address] Performed By: #### 5 8410-2 ####[facility] LABCLIA [id number] [place] [address] [place] WBC (Bld) [#/Vol] 4.99 10*3/uL Normal 3.70-11.[address] [facility] Comment on above: Order Comment: Speci men Type: BLOOD SPECIMENOrdering Facility: [facility] Address: [address] [place] [address] Performed By: #### 5 8410-2 ####[facility] LABCLIA [id number] [place] [address] [place] Comprehensive metabolic 2000 panelon 11-30-2023 Albumin [Mass/Vol] 4.4 g/dL Normal 3.9-4.9 [facility] Comment on above: Order Comment: Speci men Type: BLOOD SPECIMENOrdering Facility: [facility] Address: [address] [place] [address] Performed By: #### 2 4323-8, ####[facility] LABCLIA [id number] [place] [address] [place] ALP [Catalytic activity/Vol] 95 U/L Normal 34-123 [facility] Comment on above: Order Comment: Speci men Type: BLOOD SPECIMENOrdering Facility: [facility] Address: [address] [place] [address] Performed By: #### 2 4323-8, ####[facility] LABCLIA [id number] [place] [id number] [place] ALT [Catalytic activity/Vol] 28 U/L Normal 7-38 [facility] Comment on above: Order Comment: Speci men Type: BLOOD SPECIMENOrdering Facility: [facility] Address: [address] [place] [address] Performed By: #### 2 4323-8, ####[facility] LABCLIA [id number] [place] [address] [place] Anion gap [Moles/Vol] 16 mmol/L Normal 9-18 [facility] Comment on above: Order Comment: Speci men Type: BLOOD SPECIMENOrdering Facility: [facility] Address: [address] [place] [address] Performed By: #### 2 4323-8, ####[facility] LABCLIA [id number] [place] [address] [place] AST [Catalytic activity/Vol] 33 U/L Normal 13-35 [facility] Comment on above: Order Comment: Speci men Type: BLOOD SPECIMENOrdering Facility: [facility] Address: [address] [place] [address] Performed By: #### 2 4323-8, ####[facility] LABCLIA [id number] [place] [address] [place] Bilirubin [Mass/Vol] 0.8 mg/dL Normal 0.2-1.3 [facility] Comment on above: Order Comment: Speci men Type: BLOOD SPECIMENOrdering Facility: [facility] Address: [address] [place] [address] Performed By: #### 2 4323-8, ####[facility] LABCLIA [id number] [place] [address] [place] Calcium [Mass/Vol] 10.4 mg/dL High 8.5-10.2 [facility] Comment on above: Order Comment: Speci men Type: BLOOD SPECIMENOrdering Facility: [facility] Address: [address] [place] [address] Performed By: #### 2 4323-8, ####[facility] LABCLIA [id number] [place] [id number] [place] Chloride [Moles/Vol] 97 mmol/L Normal 97-105 [facility] Comment on above: Order Comment: Speci men Type: BLOOD SPECIMENOrdering Facility: [facility] Address: [address] [place] [address] Performed By: #### 2 4323-8, ####[facility] LABCLIA [id number] [place] [address] [place] CO2 [Moles/Vol] 25 mmol/L Normal 22-30 [facility] Comment on above: Order Comment: Speci men Type: BLOOD SPECIMENOrdering Facility: [facility] Address: [address] [place] [address] Performed By: #### 2 4323-8, ####[facility] LABCLIA [id number] [place] [address] [place] Creatinine [Mass/Vol] 1.80 mg/dL High 0.58-0.96 [facility] Comment on above: Order Comment: Speci men Type: BLOOD SPECIMENOrdering Facility: [facility] Address: [address] [place] [address] Performed By: #### 2 4323-8, ####[facility] LABCLIA [id number] [place] [address] [place] Creatinine and Glomerular filtration rate.predicted panel (S/P/Bld) 29 mL/min/1.73m??? Low >=60 [facility] Comment on above: Order Comment: Speci men Type: BLOOD SPECIMENOrdering Facility: [facility] Address: [address] [place] [address] Result Comment: Amy mated Glomerular Filtration Rate [...] accurately reflect actual GFR. Performed By: #### 2 432-8, ####[facility] LABCLIA [id number] [place] [address] [place] Glucose [Mass/Vol] 98 mg/dL Normal 74-99 [facility] Comment on above: Order Comment: Speci men Type: BLOOD SPECIMENOrdering Facility: [facility] Address: [address] [place] [address] Result Comment: The [place] [employer] (ADA) provides guidance for cutoff [...] Standards of Medical Care in Diabetes 2016, [place] [employer]. Diabetes Care. 2016.39(Suppl 1). Performed By: #### 2 4323-8, ####[facility] LABIA [id number] [place] [address] [place] Potassium [Moles/Vol] 3.8 mmol/L Normal 3.7-5.1 [facility] Comment on above: Order Comment: Speci men Type: BLOOD SPECIMENOrdering Facility: [facility] Address: [address] [place] [address] Performed By: #### 2 4323-8, ####[facility] LABIA [id number] [place] [address] [place] Protein [Mass/Vol] 7.2 g/dL Normal 6.3-8.0 [facility] Comment on above: Order Comment: Speci men Type: BLOOD SPECIMENOrdering Facility: [facility] Address: [address] [place] [address] Performed By: #### 2 4323-8, ####[facility] LABCLIA [id number] [place] [id number] [place] Sodium [Moles/Vol] 138 mmol/L Normal 136-144 [facility] Comment on above: Order Comment: Speci men Type: BLOOD SPECIMENOrdering Facility: [facility] Address: [address] [place] [address] Performed By: #### 2 4323-8, ####[facility] LABCLIA [id number] [place] [address] [place] Urea nitrogen [Mass/Vol] 39 mg/dL High 02-28 [facility] Comment on above: Order Comment: Speci men Type: BLOOD SPECIMENOrdering Facility: [facility] Address: [address] [place] [address] Performed By: #### 2 4323-8, ####[facility] LABIA [id number] [place] [address] [place] Magnesium SerPl-mCncon 11-29 Magnesium [Mass/Vol] 2.2 mg/dL Normal 1.7-2.3 [facility] Comment on above: Order Comment: Speci men Type: BLOOD SPECIMENOrdering Facility: [facility] Address: [address] [place] [address] Performed By: #### 2 4323-8, ####[facility] LABIA [id number] [place] [id number] [place] PT panel Coag (PPP)on 2023 INR Coag (PPP) [Relative time] 1.0 {INR} Normal 0.9-1.3 [facility] Comment on above: Order Comment: Speci men Type: BLOOD SPECIMENOrdering Facility: [facility] Address: [address] [place] [address] Result Comment: Janeth min K Antagonist (VKA) Therapeutic Range: INR 2 to 3 (Target INR of 2.5) Note: For patients treated with VKA drugs, such as warfarin, the [place] [employer] 2012 Guideline recommends [...] to 3.5 (target INR of 3). Matteo GH, et al. Chest 2012, 141:7S-47S Mary RA, et al. [facility] 2017, 70: 252-289 Performed By: #### 3 4528-0, PTTAC ####[facility] LABCLIA [id number] [place] [address] [place] PT Coag (PPP) [Time] 11.0 s Normal 9.7-13.0 [facility] Comment on above: Order Comment: Tremayne bill Type: BLOOD SPECIMENOrdering Facility: [facility] Address: [address] [place] [address] Performed By: #### 3 4528-0, PTTAC ####[facility] LABCLIA [id number] [place] [address] [place] PTT, ANTICOAGULANT THERAPYon 11-30-2023 aPTT Coag (PPP) [Time] 41.0 s High 23.0-32.4 [facility] Comment on above: Order Comment: Tremayne bill Type: BLOOD SPECIMEN [facility] Address: [address] [place] [address] Performed By: #### 3 4528-0, PTTAC #### [facility] CLIA [id number] [address] [place] [address] [place] aPTT Coag (PPP) [Time] 70.0 s High 23.0-32.4 [facility] Comment on above: Order Comment: Speci men Type: BLOOD SPECIMENOrdering Facility: [facility] Address: [address] [place] [address] Performed By: #### 3 4528-0, PTTAC ####[facility] LABCLIA [id number] [place] [address] [place] CBC panel Auto (Bld)on 11-28 Erythrocyte distribution width (RBC) [Ratio] 14.6 % Normal 11.5-15.0 [facility] Comment on above: Order Comment: Speci men Type: BLOOD SPECIMENOrdering Facility: [facility] Address: [address] [place] [address] Performed By: #### 5 8410-2 ####[facility] LABIA [id number] [place] [address] [place] Hematocrit (Bld) [Volume fraction] 38.3 % Normal 36.0-46.0 [facility] Comment on above: Order Comment: Speci men Type: BLOOD SPECIMENOrdering Facility: [facility] Address: [address] [place] [address] Performed By: #### 5 8410-2 ####[facility] LABCLIA [id number] [place] [address] [place] Hemoglobin (Bld) [Mass/Vol] 12.5 g/dL Normal 11.5-15.5 [facility] Comment on above: Order Comment: Speci men Type: BLOOD SPECIMENOrdering Facility: [facility] Address: [address] [place] [address] Performed By: #### 5 8410-2 ####[facility] LABCLIA [id number] [place] [address] [place] MCH (RBC) [Entitic mass] 31.0 pg Normal 26.0-34.0 [facility] Comment on above: Order Comment: Speci men Type: BLOOD SPECIMENOrdering Facility: [facility] Address: [address] [place] [address] Performed By: #### 5 8410-2 ####[facility] LABIA [id number] [place] [address] [place] MCHC (RBC) [Mass/Vol] 32.6 g/dL Normal 30.5-36.0 [facility] Comment on above: Order Comment: Speci men Type: BLOOD SPECIMENOrdering Facility: [facility] Address: [address] [place] [address] Performed By: #### 5 8410-2 ####[facility] [id number] [place] [address] [place] MCV (RBC) [Entitic vol] 95.0 fL Normal 80.0-100.0 [facility] Comment on above: Order Comment: Speci men Type: BLOOD SPECIMENOrdering Facility: [facility] Address: [address] [place] [address] Performed By: #### 5 8410-2 ####[facility] [id number] [place] [address] [place] Nucleated RBC (Bld) [#/Vol] 10*3/uL Normal <0.01 [facility] Comment on above: Order Comment: Speci men Type: BLOOD SPECIMENOrdering Facility: [facility] Address: [address] [place] [address] Performed By: #### 5 8410-2 ####[facility] [id number] [place] [address] [place] Platelet mean volume (Bld) [Entitic vol] 11.3 fL Normal 9.0-12.7 [facility] Comment on above: Order Comment: Speci men Type: BLOOD SPECIMENOrdering Facility: [facility] Address: [address] [place] [address] Performed By: #### 5 8410-2 ####[facility] LAB[facility] [id number] [address] [address] [place] Platelets (Bld) [#/Vol] 177 10*3/uL Normal 150-400 [facility] Comment on above: Order Comment: Speci men Type: BLOOD SPECIMENOrdering Facility: [facility] Address: [address] [place] [address] Performed By: #### 5 8410-2 ####[facility] LAB[facility] [id number] [place] [address] [place] RBC (Bld) [#/Vol] 4.03 10*6/uL Normal 3.90-5.[address] [facility] Comment on above: Order Comment: Speci men Type: BLOOD SPECIMENOrdering Facility: [facility] Address: [address] [place] [address] Performed By: #### 5 8410-2 ####[facility] LAB[facility] [id number] [place] [address] [place] WBC (Bld) [#/Vol] 5.21 10*3/uL Normal 3.70-11.[address] [facility] Comment on above: Order Comment: Speci men Type: BLOOD SPECIMENOrdering Facility: [facility] Address: [address] [place] [address] Performed By: #### 5 8410-2 ####[facility] LAB[facility] [id number] [place] [address] [place] Comprehensive metabolic 2000 panelon 11-29-2023 Albumin [Mass/Vol] 4.3 g/dL Normal 3.9-4.9 [facility] Comment on above: Order Comment: Speci men Type: BLOOD SPECIMEN [facility] Address: [address] [place] [address] Performed By: #### 3 4528-0, PTTAC #### [facility] CLIA [id number] [address] [place] [address] [place] ALP [Catalytic activity/Vol] 91 U/L Normal 34-123 [facility] Comment on above: Order Comment: Speci men Type: BLOOD SPECIMEN [facility] Address: [address] [place] [address] Performed By: #### 3 4528-0, PTTAC #### [facility] CLIA [id number] [address] [place] [address] [place] ALT [Catalytic activity/Vol] 19 U/L Normal 7-38 [facility] Comment on above: Order Comment: Speci men Type: BLOOD SPECIMEN [facility] Address: [address] [place] [address] Performed By: #### 3 4528-0, PTTAC #### [facility] CLIA [id number] [address] [place] [address] [place] Anion gap [Moles/Vol] 16 mmol/L Normal 9-18 [facility] Comment on above: Order Comment: Speci men Type: BLOOD SPECIMEN [facility] Address: [address] [place] [address] Performed By: #### 3 4528-0, PTTAC #### [facility] CLIA [id number] [address] [place] [address] [place] AST [Catalytic activity/Vol] 23 U/L Normal 13-35 [facility] Comment on above: Order Comment: Speci men Type: BLOOD SPECIMEN [facility] Address: [address] [place] [address] Performed By: #### 3 4528-0, PTTAC #### [facility] CLIA [id number] [address] [place] [address] [place] Bilirubin [Mass/Vol] 0.7 mg/dL Normal 0.2-1.3 [facility] Comment on above: Order Comment: Speci men Type: BLOOD SPECIMEN [facility] Address: [address] [place] [address] Performed By: #### 3 4528-0, PTTAC #### [facility] CLIA [id number] [address] [place] [address] [place] Calcium [Mass/Vol] 10.3 mg/dL High 8.5-10.2 [facility] Comment on above: Order Comment: Speci men Type: BLOOD SPECIMEN [facility] Address: [address] [place] [address] Performed By: #### 3 4528-0, PTTAC #### [facility] CLIA [id number] [address] [place] [address] [place] Chloride [Moles/Vol] 99 mmol/L Normal 97-105 [facility] Comment on above: Order Comment: Speci men Type: BLOOD SPECIMEN [facility] Address: [address] [place] [address] Performed By: #### 3 4528-0, PTTAC #### [facility] CLIA [id number] [address] [place] [address] [place] CO2 [Moles/Vol] 24 mmol/L Normal 22-30 [facility] Comment on above: Order Comment: Speci men Type: BLOOD SPECIMEN [facility] Address: [address] [place] [address] Performed By: #### 3 4528-0, PTTAC #### [facility] CLIA [id number] [address] [place] [address] [place] Creatinine [Mass/Vol] 1.75 mg/dL High 0.58-0.96 [facility] Comment on above: Order Comment: Speci men Type: BLOOD SPECIMEN [facility] Address: [address] [place] [address] Performed By: #### 3 4528-0, PTTAC #### [facility] CLIA [id number] [address] [place] [address] [place] [facility] Creatinine and Glomerular filtration rate.predicted panel (S/P/Bld) 30 mL/min/1.73m??? Low >=60 [facility] Comment on above: Order Comment: Tremayne bill Type: BLOOD SPECIMEN [facility] Address: [address] [place] [address] Result Comment: Amy mated Glomerular Filtration Rate [...] accurately reflect actual GFR. Performed By: #### 3 4528-0, PTTAC #### [facility] CLIA [id number] [address] [place] [address] [place] [facility] Glucose [Mass/Vol] 97 mg/dL Normal 74-99 [facility] Comment on above: Order Comment: Tremayne bill Type: BLOOD SPECIMEN [facility] Address: [address] [place] [address] Result Comment: The [place] [employer] (ADA) provides guidance for cutoff [...] Standards of Medical Care in Diabetes 2016, [place] [employer]. Diabetes Care. 2016.39(Suppl 1). Performed By: #### 3 4528-0, PTTAC #### [facility] CLIA [id number] [address] [place] [address] [place] Potassium [Moles/Vol] 4.0 mmol/L Normal 3.7-5.1 [facility] Comment on above: Order Comment: Speci men Type: BLOOD SPECIMEN [facility] Address: [address] [place] [address] Performed By: #### 3 4528-0, PTTAC #### [facility] CLIA [id number] [address] [place] [address] [place] Protein [Mass/Vol] 7.1 g/dL Normal 6.3-8.0 [facility] Comment on above: Order Comment: Speci men Type: BLOOD SPECIMEN [facility] Address: [address] [place] [address] Performed By: #### 3 4528-0, PTTAC #### [facility] CLIA [id number] [address] [place] [address] [place] Sodium [Moles/Vol] 139 mmol/L Normal 136-144 [facility] Comment on above: Order Comment: Speci men Type: BLOOD SPECIMEN [facility] Address: [address] [place] [address] Performed By: #### 3 4528-0, PTTAC #### [facility] CLIA [id number] [address] [place] [address] [place] Urea nitrogen [Mass/Vol] 39 mg/dL High 7-21 [facility] Comment on above: Order Comment: Speci men Type: BLOOD SPECIMEN [facility] Address: [address] [place] [address] Performed By: #### 3 4528-0, PTTAC #### [facility] CLIA [id number] [address] [place] [address] [place] Magnesium SerPl-mCncon 11-28 Magnesium [Mass/Vol] 2.1 mg/dL Normal 1.7-2.3 [facility] Comment on above: Order Comment: Speci fly Type: BLOOD SPECIMEN [facility] Address: [address] [place] [address] Performed By: #### 3 4528-0, PTTAC #### [facility] CLIA [id number] [address] [facility] [place] [address] [place] PT panel Coag (PPP)on 2023 INR Coag (PPP) [Relative time] 1.0 {INR} Normal 0.9-1.3 [facility] Comment on above: Order Comment: Tremayne bill Type: BLOOD SPECIMENOrdering Facility: [facility] Address: [address] [place] [address] Result Comment: Janeth min K Antagonist (VKA) Therapeutic Range: INR 2 to 3 (Target INR of 2.5) Note: For patients treated with VKA drugs, such as warfarin, the [place] [employer] 2012 Guideline recommends [...] to 3.5 (target INR of 3). Matteo GH, et al. Chest 2012, 141:7S-47S Mary RA, et al. [facility] 2017, 70: 252-289 Performed By: #### 3 4528-0, PTTAC ####[facility] [id number] [facility] [place] [address] [place] PT Coag (PPP) [Time] 11.0 s Normal 9.7-13.0 [facility] Comment on above: Order Comment: Speci men Type: BLOOD SPECIMENOrdering Facility: [facility] Address: [address] [place] [address] Performed By: #### 3 4528-0, PTTAC ####[facility] [id number] [place] [address] [place] PTT, ANTICOAGULANT THERAPYon 11-29-2023 aPTT Coag (PPP) [Time] 55.0 s High 23.0-32.4 [facility] Comment on above: Order Comment: Speci men Type: BLOOD SPECIMENOrdering Facility: [facility] Address: [address] [place] [address] Performed By: #### 3 4528-0, PTTAC ####[facility] [id number] [place] [address] [place] CBC panel Auto (Bld)on 11-27 Erythrocyte distribution width (RBC) [Ratio] 14.5 % Normal 11.5-15.0 [facility] Comment on above: Order Comment: Speci men Type: BLOOD SPECIMENOrdering Facility: [facility] Address: [address] [place] [address] Performed By: #### 5 8410-2 ####[facility] [id number] [place] [address] [place] Hematocrit (Bld) [Volume fraction] 37.0 % Normal 36.0-46.0 [facility] Comment on above: Order Comment: Speci men Type: BLOOD SPECIMENOrdering Facility: [facility] Address: [address] [place] [address] Performed By: #### 5 8410-2 ####[facility] [id number] [place] [address] [place] Hemoglobin (Bld) [Mass/Vol] 12.1 g/dL Normal 11.5-15.5 [facility] Comment on above: Order Comment: Speci men Type: BLOOD SPECIMENOrdering Facility: [facility] Address: [address] [place] [address] Performed By: #### 5 8410-2 ####[facility] [id number] [place] [address] [place] MCH (RBC) [Entitic mass] 31.4 pg Normal 26.0-34.0 [facility] Comment on above: Order Comment: Speci men Type: BLOOD SPECIMENOrdering Facility: [facility] Address: [address] [place] [address] Performed By: #### 5 8410-2 ####[facility] [id number] [place] [address] [place] MCHC (RBC) [Mass/Vol] 32.7 g/dL Normal 30.5-36.0 [facility] Comment on above: Order Comment: Speci men Type: BLOOD SPECIMENOrdering Facility: [facility] Address: [address] [place] [address] Performed By: #### 5 8410-2 ####[facility] [id number] [place] [address] [place] MCV (RBC) [Entitic vol] 96.1 fL Normal 80.0-100.0 [facility] Comment on above: Order Comment: Speci men Type: BLOOD SPECIMENOrdering Facility: [facility] Address: [address] [place] [address] Performed By: #### 5 8410-2 ####[facility] [id number] [place] [address] [place] Nucleated RBC (Bld) [#/Vol] 10*3/uL Normal <0.01 [facility] Comment on above: Order Comment: Speci men Type: BLOOD SPECIMENOrdering Facility: [facility] Address: [address] [place] [address] Performed By: #### 5 8410-2 ####[facility] [id number] [place] [address] [place] Platelet mean volume (Bld) [Entitic vol] 10.8 fL Normal 9.0-12.7 [facility] Comment on above: Order Comment: Speci men Type: BLOOD SPECIMENOrdering Facility: [facility] Address: [address] [place] [address] Performed By: #### 5 8410-2 ####[facility]IA [id number] [place] [address] [place] Platelets (Bld) [#/Vol] 157 10*3/uL Normal 150-400 [facility] Comment on above: Order Comment: Speci men Type: BLOOD SPECIMENOrdering Facility: [facility] Address: [address] [place] [address] Performed By: #### 5 8410-2 ####[facility]IA [id number] [place] [address] [place] RBC (Bld) [#/Vol] 3.85 10*6/uL Low 3.90-5.[address] [facility] Comment on above: Order Comment: Speci men Type: BLOOD SPECIMENOrdering Facility: [facility] Address: [address] [place] [address] Performed By: #### 5 8410-2 ####[facility]IA [id number] [place] [address] [place] WBC (Bld) [#/Vol] 5.03 10*3/uL Normal 3.70-11.[address] [facility] Comment on above: Order Comment: Speci men Type: BLOOD SPECIMENOrdering Facility: [facility] Address: [address] [place] [address] Performed By: #### 5 8410-2 ####[facility]IA [id number] [place] [address] [place] CNOVon 11-28-2023 CNOV Office Visit (PULLMN ) -- STEVIECECE ([id number]) 1945 F Date Time Provider Department 11/28/23 9:45 AM PULM FCT LAB MAIN 3 PULLMN During your visit today, we recorded the following information about you: Referring Provider: JOEL PARRISH [[id number]] Allergies As of Date: 11/28/2023 Noted Allergy Reaction SERINA INHIBITORS 04/28/2012 2 - Rash 4 - Hives AMLODIPINE 04/24/2022 7 - Swelling CODEINE 04/28/2012 11 - Vomiting DILAUDID (HYDROMORPHONE (BULK)) 05/12/2012 11 - Vomiting MEPERIDINE 07/28/2017 11 - Vomiting MORPHINE 10/26/2023 11 - Vomiting NEURONTIN (GABAPENTIN) 10/26/2023 1 - Mental Status Change Date Reviewed: 11/27/2023 Reviewed by: Shayy Santana RN - Fully Assessed Reason for Visit: Spirometry [191] Primary Visit Diagnosis:Pre-operative cardiovascular examination [Z01.810] Prescriptions as of 11/28/2023 - potassium chloride SR (MICRO-K) 8 mEq cpER Take 1 capsule by mouth once daily. - hydrALAZINE (APRESOLINE) 25 mg tablet Take 1 tablet by mouth two times a day. - amiodarone (PACERONE) 200 mg tablet Take 0.5 tablets by mouth once daily. - furosemide (LASIX) 20 mg tablet Take 1 tablet by mouth once daily. - ELIQUIS 5 mg tab(s) Take 1 tablet by mouth every 12 hours. - isosorbide mononitrate ER (IMDUR) 30 mg 24 hr tablet Take 30 mg by mouth. - liothyronine (CYTOMEL) 5 mcg tablet Take 1 tablet by mouth every afternoon. - escitalopram oxalate (LEXAPRO) 10 mg tablet Take 1 tablet by mouth every afternoon. - pantoprazole DR (PROTONIX) 40 mg tablet Take 40 mg by mouth once daily. - atorvastatin (LIPITOR) 40 mg tablet Take 40 mg by mouth once daily. - krill oil 500 mg cap - vit A/vit C/vit E/zinc/copper (PRESERVISION AREDS ORAL) - traMADol (ULTRAM) 50 mg tablet Take 50 mg by mouth three times daily as needed. - aspirin 81 mg cap Take by mouth. - Multivitamin capsule Take 1 capsule by mouth once daily. Facility-Administered Medications as of 11/28/2023 - potassium chloride ER 10-60 mEq tab(s) (KLOR-CON M10) - heparin iv infusion 25,000 units in NaCl 0.45% 250 mL LOW DOSE/ACS NOMOGRAM - heparin RATE CHANGE bolus 1,000-4,000 Units for subtherapeutic PTTAC results - sodium chloride 0.9 % (flush) 2-10 mL (BD POSIFLUSH) - perflutren lipid microspheres 1.1 mg/mL 1.3 mL injection (DEFINITY) - melatonin 3 mg tab(s) - polyethylene glycol 3350 17 g packet - docusate sodium 100 mg cap(s) (COLACE) - amiodarone 100 mg tab(s) (PACERONE) - atorvastatin 40 mg tab(s) (LIPITOR) - hydrALAZINE 25 mg tab(s) (APRESOLINE) - aspirin 81 mg chewable tab(s) - escitalopram oxalate 10 mg tab(s) (LEXAPRO) - pantoprazole DR 40 mg tab(s) (PROTONIX) - liothyronine 5 mcg tab(s) (CYTOMEL) - isosorbide mononitrate ER 30 mg tab(s) (IMDUR) - torsemide 20 mg tab(s) (DEMADEX) Problem List As Of Date 11/28/2023 Noted Resolved Knee pain [M25.569] 06/04/2012 Chronic bilateral low back pain without sciatic*06/14/2016 HTN (hypertension) [I10] 02/22/2019 Hyperlipidemia [E78.5] 02/22/2019 Acid reflux [K21.9] 02/22/2019 Depression [F32.A] 04/24/2022 Anxiety [F41.9] 04/24/2022 CAD (coronary artery disease) [I25.10] 04/24/2022 Severe mitral regurgitation [I34.0] 10/27/2023 LAY (acute kidney injury) (HCC) [N17.9] 10/27/2023 Mitral valve insufficiency [I34.0] 10/27/2023 Atrial fibrillation (HCC) [I48.91] 10/27/2023 Obesity, Class I, BMI 30-34.9 [E66.9] 10/30/2023 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] 11/05/2023 Hematoma of right lower leg [S80.11XA] 11/05/2023 Right leg swelling [M79.89] 11/05/2023 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 Anticoagulated [Z79.01] 11/09/2023 HOLLY (dyspnea on exertion) [R06.09] 11/24/2023 Stage 3 chronic kidney disease (HCC) [N18.30] 11/24/2023 Chronic heart failure with preserved ejection f*11/24/2023 Hypothyroidism [E03.9] 11/24/2023 NSTEMI (non-ST elevated myocardial infarction) *11/25/2023 Nonrheumatic aortic valve insufficiency [I35.1] 11/26/2023 Pre-op exam [Z01.818] 11/26/2023 Anticoagulation management encounter [Z51.81, Z*11/26/2023 Dyspnea on exertion [R06.09] 11/26/2023 Atrial fibrillation, chronic (HCC) [I48.20] 11/26/2023 Encounter Status:Closed by RICHA FERNANDO on 11/28/23 [facility] CNOV Office Visit (PULLMN ) -- CECE HUBBARD ([id number]) 1945 F Date Time Provider Department 11/28/23 9:30 AM PULM [facility] LAB MAIN 3 PULLMN During your visit today, we recorded the following information about you: Richa Fernando, AUDITOR APPRAISER 11/28/2023 11:06 AM Signed PULM FUNCTION SMARTBLOCK: Provider: Gaetano Shaw MD Spirometry: 1 DLCO: 1 System: 8 - [id number] Referring Provider: JOEL PARRISH [[id number]] Allergies As of Date: 11/28/2023 Noted Allergy Reaction SERINA INHIBITORS 04/28/2012 2 - Rash 4 - Hives AMLODIPINE 04/24/2022 7 - Swelling CODEINE 04/28/2012 11 - Vomiting DILAUDID (HYDROMORPHONE (BULK)) 05/12/2012 11 - Vomiting MEPERIDINE 07/28/2017 11 - Vomiting MORPHINE 10/26/2023 11 - Vomiting NEURONTIN (GABAPENTIN) 10/26/2023 1 - Mental Status Change Date Reviewed: 11/27/2023 Reviewed by: Shayy Santana RN - Fully Assessed Reason for Visit: Spirometry [191] Primary Visit Diagnosis:Pre-operative cardiovascular examination [Z01.810] Prescriptions as of 11/28/2023 - potassium chloride SR (MICRO-K) 8 mEq cpER Take 1 capsule by mouth once daily. - hydrALAZINE (APRESOLINE) 25 mg tablet Take 1 tablet by mouth two times a day. - amiodarone (PACERONE) 200 mg tablet Take 0.5 tablets by mouth once daily. - furosemide (LASIX) 20 mg tablet Take 1 tablet by mouth once daily. - ELIQUIS 5 mg tab(s) Take 1 tablet by mouth every 12 hours. - isosorbide mononitrate ER (IMDUR) 30 mg 24 hr tablet Take 30 mg by mouth. - liothyronine (CYTOMEL) 5 mcg tablet Take 1 tablet by mouth every afternoon. - escitalopram oxalate (LEXAPRO) 10 mg tablet Take 1 tablet by mouth every afternoon. - pantoprazole DR (PROTONIX) 40 mg tablet Take 40 mg by mouth once daily. - atorvastatin (LIPITOR) 40 mg tablet Take 40 mg by mouth once daily. - krill oil 500 mg cap - vit A/vit C/vit E/zinc/copper (PRESERVISION AREDS ORAL) - traMADol (ULTRAM) 50 mg tablet Take 50 mg by mouth three times daily as needed. - aspirin 81 mg cap Take by mouth. - Multivitamin capsule Take 1 capsule by mouth once daily. Facility-Administered Medications as of 11/28/2023 - potassium chloride ER 10-60 mEq tab(s) (KLOR-CON M10) - heparin iv infusion 25,000 units in NaCl 0.45% 250 mL LOW DOSE/ACS NOMOGRAM - heparin RATE CHANGE bolus 1,000-4,000 Units for subtherapeutic PTTAC results - sodium chloride 0.9 % (flush) 2-10 mL (BD POSIFLUSH) - perflutren lipid microspheres 1.1 mg/mL 1.3 mL injection (DEFINITY) - melatonin 3 mg tab(s) - polyethylene glycol 3350 17 g packet - docusate sodium 100 mg cap(s) (COLACE) - amiodarone 100 mg tab(s) (PACERONE) - atorvastatin 40 mg tab(s) (LIPITOR) - hydrALAZINE 25 mg tab(s) (APRESOLINE) - aspirin 81 mg chewable tab(s) - escitalopram oxalate 10 mg tab(s) (LEXAPRO) - pantoprazole DR 40 mg tab(s) (PROTONIX) - liothyronine 5 mcg tab(s) (CYTOMEL) - isosorbide mononitrate ER 30 mg tab(s) (IMDUR) - torsemide 20 mg tab(s) (DEMADEX) Problem List As Of Date 11/28/2023 Noted Resolved Knee pain [M25.569] 06/04/2012 Chronic bilateral low back pain without sciatic*06/14/2016 HTN (hypertension) [I10] 02/22/2019 Hyperlipidemia [E78.5] 02/22/2019 Acid reflux [K21.9] 02/22/2019 Depression [F32.A] 04/24/2022 Anxiety [F41.9] 04/24/2022 CAD (coronary artery disease) [I25.10] 04/24/2022 Severe mitral regurgitation [I34.0] 10/27/2023 LAY (acute kidney injury) (HCC) [N17.9] 10/27/2023 Mitral valve insufficiency [I34.0] 10/27/2023 Atrial fibrillation (HCC) [I48.91] 10/27/2023 Obesity, Class I, BMI 30-34.9 [E66.9] 10/30/2023 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] 11/05/2023 Hematoma of right lower leg [S80.11XA] 11/05/2023 Right leg swelling [M79.89] 11/05/2023 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 Anticoagulated [Z79.01] 11/09/2023 HOLLY (dyspnea on exertion) [R06.09] 11/24/2023 Stage 3 chronic kidney disease (HCC) [N18.30] 11/24/2023 Chronic heart failure with preserved ejection f*11/24/2023 Hypothyroidism [E03.9] 11/24/2023 NSTEMI (non-ST elevated myocardial infarction) *11/25/2023 Nonrheumatic aortic valve insufficiency [I35.1] 11/26/2023 Pre-op exam [Z01.818] 11/26/2023 Anticoagulation management encounter [Z51.81, Z*11/26/2023 Dyspnea on exertion [R06.09] 11/26/2023 Atrial fibrillation, chronic (HCC) [I48.20] 11/26/2023 Encounter Status:Closed by RICHA FERNANDO on 11/28/23 [facility] CONSULT PROGon 11-28-2023 CONSULT PROG HNO ID: [id number] Author: CHRISTINE BRICE APRN.UTILIZATION SPECIALIST Service: Cardiac Surgery Author Type: Nurse Practitioner Type: Consult Progress Note Filed: 11/28/2023 19:08 Note Text: Cardiac Surgery Consult Progress note AND Preop Checklist Patient Name: Cece Hubbard : 1945 Primary Service: Joel Parrish MD Proposed Surgery: MVr, CABG, LAAL+/- Maze REDO: No Surgery Date: possible 12/01 Surgeon: Dr. Shaw [facility] Day: 3 Subjective/HPI: Cece Hubbard is 78 year old female with past medical history of aortic regurgitation, coronary artery disease, HFpEF, HTN, HLD, CAD status post PCI to LAD and RCA 2019, HFpEF, MR, AR, PAF on eliquis, CKD3 (SCr 1.4-1.5), and hypothyroidism who presents with CAD and mitral valve regurgitation. She is currently symptomatic and complains of HOLLY. The patient is planned to undergo surgery on 12/05/2023 and felt that she would be unable to undergo surgery by 12/05/2023 safely (with Dr. Gaetano Shaw). Recent C in 10/2023 was complicated by RIGHT femoral pseudoaneurysm that has intervally gone away. Currently resides in [place], [place] with Elio. Retired from [employer]. Denied smoking/street drugs/EtOH use. Right handed. No physical limitations, apart from having to stop to catch breath. Has hardware s/p Right TKR and lower back fixation. Interval History: No acute events overnight. -Scr uptick 1.87 (1.7, 1.6 prior) -Groin US with residual hematoma x 2 -Echo with mild (1+ - 2+) mitral valve regurgitation. trace (trace - 1+) tricuspid valve regurgitation. mild (1+ - 2+) aortic valve regurgitation. Objective: BP 141/64 Pulse 60 Temp 36.8 ?C (98.3 ?F) (Oral) Resp 18 Wt 79.1 kg (174 lb 6.1 oz) SpO2 97% BMI 29.93 kg/m? Interval Physical Exam: General appearance: Well appearing, alert, in no acute distress, well-hydrated, well nourished. Lungs: Lungs clear to auscultation. No wheezing, rhonchi, rales. Heart: RRR without gallop, or rubs. +Murmur. No ectopy Abdomen: Normal abdominal exam, Abdomen soft, non-tender. Bowel sounds normal. No masses, organomegaly Extremities: No deformities, edema, skin discoloration, clubbing or cyanosis. Good capillary refill. Peripheral pulses: Capillary refill <2secs, strong peripheral pulses Neuro: Gait normal. Reflexes normal and symmetric. Sensation grossly intact. Recommendations/Plan: Patient case reviewed by the surgeon, Dr. Shaw. No surgical indication based on echo findings. Please contact Dr. Shaw for questions. Re-consult in the future if needed. Consider interventional cardiology for [facility] PRE-OP CHECKLIST Informed Consent Completed: No H AND P completed: Yes STS Score: not supported CAD: Yes - CAD on Problem List: Yes Is intended procedure a CABG: Yes - is a beta ken ordered? No - reason: per primary Cath: Yes - reviewed: Yes PA/LAT: Completed 11/24/23 CT: Completed 11/27/23 IMPRESSION: AORTIC VALVE: assessment is limited in the current study. No leaflet calcification. ECTASIA/MILD DILATION ASCENDING AORTA: 3.9 cm -No evidence of wall calcification ascending thoracic aorta and aortic arch CORONARY ANATOMY: Coronary stent of the LAD and RCA, assessment is limited due to metal artifact. LUNGS: non-calcified 3 mm nodule right middle lung lobe (Image # [id number]) (see saved images). Incidental Finding: Follow-up Acuity: Incidental Finding: Solid: <6 mm (solitary or multiple) Routing Code: N/A Recommendation: No imaging follow-up is recommended Time Frame: N/A Comments: If there are risk factors for lung malignancy, a follow-up chest CT exam could be obtained in 12 months MRI: N/A US Groin:11/26 RIGHT SIDE Negative for deep vein thrombosis, arteriovenous fistula and pseudoaneurysm. External iliac artery patent at distal . Common femoral artery patent . Profunda femoral artery patent at proximal . Superficial femoral artery patent at proximal . There appears to be 2 hematomas near the right groin. The first one is anterior to the common femoral vein. It measures approximately 1.6 x 2.9 x 1.8cm. The second one is at proximal thigh. It measures approximately 4.2 x 0.7 x 2.0cm. EKG: Completed Is patient on Amiodarone? Yes Procedure Date : Nov 26 2023 03:03:15 Edit Date : Nov 26 2023 03:06:26 Diagnosis: NORMAL SINUS RHYTHM NORMAL ECG Echo:Pending EF %: LV Ejection Fraction (%) Date Value 10/28/2023 67 PI's: Right handed Right 58% Left 24% Carotid: Right Internal carotid artery: 20-39% stenosis. LEFT SIDE Internal carotid artery: 0-19% stenosis. Mapping: complete PFT's: complete FVC (L) 2.43 1.76 2.53 3.33 95 FEV1 (L) 1.79 1.32 1.94 2.52 92 FEV1/FVC 0.74 0.65 0.78 0.89 94 LUNG DIFFUSION DLCOunc (ml/min/mmHg) 13.48 13.24 19.41 25.58 69 Dental: Cleared Recent Labs 11/28/23 0444 WBC 5.03 HB 12.1 HCT 37.0 PLT 157 INR 1.0 CREAT 1.87* (more content not included)... Normal [facility] 2000 panelon 11-28-2023 Albumin [Mass/Vol] 4.0 g/dL Normal 3.9-4.9 [facility] Comment on above: Order Comment: Speci men Type: BLOOD SPECIMENOrdering Facility: [facility] Address: [address] [place] [address] Performed By: #### 2 4323-8, ####[facility] LABCLIA [id number] [place] [address] [place] ALP [Catalytic activity/Vol] 89 U/L Normal 34-123 [facility] Comment on above: Order Comment: Speci men Type: BLOOD SPECIMENOrdering Facility: [facility] Address: [address] [place] [address] Performed By: #### 2 432-8, ####[facility] LABCLIA [id number] [place] [address] [place] ALT [Catalytic activity/Vol] 10 U/L Normal 7-38 [facility] Comment on above: Order Comment: Speci men Type: BLOOD SPECIMENOrdering Facility: [facility] Address: [address] [place] [address] Performed By: #### 2 4323-8, ####[facility] LABCLIA [id number] [place] [address] [place] Anion gap [Moles/Vol] 12 mmol/L Normal 9-18 [facility] Comment on above: Order Comment: Speci men Type: BLOOD SPECIMENOrdering Facility: [facility] Address: [address] [place] [address] Performed By: #### 2 4323-8, ####[facility] LABCLIA [id number] [place] [id number] [place] AST [Catalytic activity/Vol] 12 U/L Low 13-35 [facility] Comment on above: Order Comment: Speci men Type: BLOOD SPECIMENOrdering Facility: [facility] Address: [address] [place] [id number] Performed By: #### 2 432-8, ####[facility] LABCLIA [id number] [address] [address] [place] Bilirubin [Mass/Vol] 0.5 mg/dL Normal 0.2-1.3 [facility] Comment on above: Order Comment: Speci men Type: BLOOD SPECIMENOrdering Facility: [facility] Address: [address] [place], [place] [address] Performed By: #### 2 432-8, ####[facility] LABCLIA [id number] [place] [address] [place] Calcium [Mass/Vol] 10.0 mg/dL Normal 8.5-10.2 [facility] Comment on above: Order Comment: Speci men Type: BLOOD SPECIMENOrdering Facility: [facility] Address: [address] [place], [place] [id number] Performed By: #### 2 8, ####[facility] LABCLIA [id number] [place] [id number] [place] Chloride [Moles/Vol] 102 mmol/L Normal 97-105 [facility] Comment on above: Order Comment: Speci men Type: BLOOD SPECIMENOrdering Facility: [facility] Address: [address] [place] [address] Performed By: #### 2 432-8, ####[facility] LABCLIA [id number] [place] [id number] [place] CO2 [Moles/Vol] 26 mmol/L Normal 22-30 [facility] Comment on above: Order Comment: Speci men Type: BLOOD SPECIMENOrdering Facility: [facility] Address: [address] [place], [place] [address] Performed By: #### 2 4323-8, ####[facility] LABCLIA [id number] [place] [id number] [place] Creatinine [Mass/Vol] 1.87 mg/dL High 0.58-0.96 [facility] Comment on above: Order Comment: Speci men Type: BLOOD SPECIMENOrdering Facility: [facility] Address: [address] [place] [address] Performed By: #### 2 4323-8, ####[facility] LABIA [id number] [place] [address] [place] Creatinine and Glomerular filtration rate.predicted panel (S/P/Bld) 27 mL/min/1.73m??? Low >=60 [facility] Comment on above: Order Comment: Tremayne bill Type: BLOOD SPECIMENOrdering Facility: [facility] Address: [address] [place] [address] Result Comment: Amy mated Glomerular Filtration Rate [...] accurately reflect actual GFR. Performed By: #### 2 4323-8, ####[facility] LABIA [id number] [place] [address] [place] Glucose [Mass/Vol] 106 mg/dL High 74-99 [facility] Comment on above: Order Comment: Zaki fly Type: BLOOD SPECIMENOrdering Facility: [facility] Address: [address] [place] [address] Result Comment: The [place] Diabetes Association (ADA) provides guidance for cutoff [...] Standards of Medical Care in Diabetes 2016, [place] [employer]. Diabetes Care. 2016.39(Suppl 1). Performed By: #### 2 4328, ####[facility] LABCLIA [id number] [address] [address] [place] Potassium [Moles/Vol] 4.5 mmol/L Normal 3.7-5.1 [facility] Comment on above: Order Comment: Speci men Type: BLOOD SPECIMENOrdering Facility: [facility] Address: [address] [place] [address] Performed By: #### 2 4323-03, ####[facility] LABCLIA [id number] [place] [id number] [place] Protein [Mass/Vol] 6.5 g/dL Normal 6.3-8.0 [facility] Comment on above: Order Comment: Speci men Type: BLOOD SPECIMENOrdering Facility: [facility] Address: [address] [place] [address] Performed By: #### 2 4323-03, ####[facility] LABCLIA [id number] [place] [id number] [place] Sodium [Moles/Vol] 140 mmol/L Normal 136-144 [facility] Comment on above: Order Comment: Speci men Type: BLOOD SPECIMENOrdering Facility: [facility] Address: [address] [place] [address] Performed By: #### 2 43210-16, ####[facility] LABCLIA [id number] [address] [address] [place] Urea nitrogen [Mass/Vol] 30 mg/dL High 7-21 [facility] Comment on above: Order Comment: Speci men Type: BLOOD SPECIMENOrdering Facility: [facility] Address: [address] [place] [address] Performed By: #### 2 4323-8, 15510-4 ####[facility] LABCLIA [id number] [address] [place] [address] [place] ECHOon 11-28-2023 Echocardiography Echocardiography Rep ort: Transthoracic Echo [facility] Bedside Date of service: 11/28/2023 1:30:40 PM INSTRUCTOR Ordering physician: JOEL PARRISH Indication: Initial evaluation of known cardiomyopathy Technologist: Esther Godinez Interpreting physician: Matt Dwyer MD PATIENT: Name: CECE HUBBARD : 1945 Age: 78 years Gender: F History of hypertension, dyslipidemia, coronary artery disease and diabetes mellitus. Previous cardiovascular interventions: PCI (2019) Primary rhythm: sinus. Height: 162.60 cm BSA: 1.92 m Weight: 81.50 kg BMI: 30.8 kg/m Heart rate 70 bpm Blood pressure 127/64 mmHg Technically difficult exam due to body habitus. Color Doppler was utilized to interrogate the cardiac valves assessed and spectral Doppler was utilized to determine the flow velocities and pressure gradients reported in this exam. Myocardial strain analysis was performed in this exam to aid in the assessment of cardiac function. MEASUREMENTS: Value Indexed Normal LV ID (diastole) 4.6 cm (2D) 2.39 cm/m LV ID (systole) 1.9 cm (2D) 0.99 cm/m IVS, leaflet tips 1.2 cm (2D) Posterior wall thickness 1.0 cm (2D) Left ventricular mass 187 g (2D) 97 g/m Global peak long strain -15.7 % LV stroke volume 54 ml (2D biplane) LV end diastolic volume 85 ml (2D biplane) 44.2 ml/m 29<=EDVi<62 LV end systolic volume 31 ml (2D biplane) 16.2 ml/m Ejection Fraction 63 % (2D biplane) EF > 54 FINDINGS: LEFT VENTRICLE The left ventricle is normal in size. There is left ventricular hypertrophy. Left ventricular systolic function is normal. Global LV myocardial strain is borderline abnormal. Grade II left ventricular diastolic dysfunction. Mitral annular lateral E/e': 11.7. Mitral annular septal E/e': 16.4. RIGHT VENTRICLE The right ventricle is normal in size. Right ventricular systolic function is normal globally. RV systolic tissue Doppler velocity is 14.0 cm/s. Estimated right ventricular systolic pressure is likely underestimated due to a weak or incomplete tricuspid regurgitation signal and is, at least, 27 mmHg consistent with normal pulmonary artery pressures. Estimated right atrial pressure is 3 mmHg based on IVC assessment. RIGHT ATRIUM Inferior Vena Cava: The inferior vena cava appears normal measuring 1.6 cm. The vessel decreases greater than 50 percent with inspiration. MITRAL VALVE There is mild (1+ - 2+) mitral valve regurgitation. There is mild thickening. The pressure half time is 68 msec. The peak mitral E/A ratio is 0.75. The average mitral E/e' ratio is 14.0. The mitral flow deceleration time is 233 msec. TRICUSPID VALVE The tricuspid valve leaflets are structurally normal. There is trace (trace - 1+) tricuspid valve regurgitation. AORTIC VALVE There is mild (1+ - 2+) aortic valve regurgitation. Tricuspid aortic valve. There is mild thickening. The peak gradient is 12 mmHg (peak velocity = 171.8 cm/s). PULMONIC VALVE The pulmonic valve was not seen or not interrogated. There is no pulmonic valve regurgitation. PULMONARY ARTERIES The pulmonary arteries are unseen or not interrogated. PERICARDIUM There is no pericardial effusion. There is an epicardial fat pad. CONCLUSIONS: - Technically difficult exam due to body habitus. - Exam indication: Initial evaluation of known cardiomyopathy - The left ventricle is normal in size. There is left ventricular hypertrophy. Left ventricular systolic function is normal. EF = 63 5% (2D biplane) Grade II left ventricular diastolic dysfunction. - The right ventricle is normal in size. Right ventricular systolic function is normal. - Exam was compared with the prior CC echocardiographic exam performed on 10/28/2023 ([facility]). AR and MR appear less severe on the current study. * * * Final * * * CC [employer] [facility] Image : [id number] Normal [facility] Magnesium SerPl-mCncon 11-27 Magnesium [Mass/Vol] 2.2 mg/dL Normal 1.7-2.3 [facility] Comment on above: Order Comment: Tremayne bill Type: BLOOD SPECIMENOrdering Facility: [facility] Address: [address] [place] [address] Performed By: #### 2 4323-8, 24037-0 ####[facility] LABCLIA [id number] [place] [address] [place] PT panel Coag (PPP)on 2023 INR Coag (PPP) [Relative time] 1.0 {INR} Normal 0.9-1.3 [facility] Comment on above: Order Comment: Tremayne bill Type: BLOOD SPECIMEN [facility] Address: [address] [place] [address] Result Comment: Janeth min K Antagonist (VKA) Therapeutic Range: INR 2 to 3 (Target INR of 2.5) Note: For patients treated with VKA drugs, such as warfarin, the [place] [employer] 2012 Guideline recommends [...] to 3.5 (target INR of 3). Matteo GH, et al. Chest 2012, 141:7S-47S Mary RA, et al. [facility] 2017, 70: 252-289 Performed By: #### 3 4528-0, PTTAC #### [facility] CLIA [id number] [address] [place] [address] [place] PT Coag (PPP) [Time] 10.8 s Normal 9.7-13.0 [facility] Comment on above: Order Comment: Speci men Type: BLOOD SPECIMEN [facility] Address: [address] [place] [address] Performed By: #### 3 4528-0, PTTAC #### [facility] CLIA [id number] [address] [place] [address] [place] PTT, ANTICOAGULANT THERAPYon 11-28-2023 aPTT Coag (PPP) [Time] 61.8 s High 23.0-32.4 [facility] Comment on above: Order Comment: Speci men Type: BLOOD SPECIMEN [facility] Address: [address] [place] [address] Performed By: #### 3 4528-0, PTTAC #### [facility] CLIA [id number] [address] [place] [address] [place] US EXT MASS/FLUID COLLECTION RTon 11-28-2023 US EXT MASS/FLUID COLLECTION RT * * *Final Report* * * DATE OF EXAM: Nov 28 2023 4:25PM [facility] [place] EXT MASS/FLUID COLLECTION RT / PROCEDURE REASON: Soft tissue hematoma palpable * * * * Physician Interpretation * * * * MSK_US SOFT TISSUE ULTRASOUND OF THE RIGHT FOREARM. HISTORY: Right forearm swelling. TECHNIQUE: Grayscale and power Doppler ultrasound imaging was performed in the area of concern and images were saved to the permanent image archive. RESULT: There is no soft tissue mass or collection in the area of concern. IMPRESSION: No subcutaneous mass or collection area of concern. Housing Management Representative: PSCB Transcribe Date/Time: Nov 28 2023 5:22P Dictated by : MATT TRACY MD This examination was interpreted and the report reviewed and electronically signed by: MATT TRACY MD on Nov 28 2023 5:24PM EST [id number] Normal [facility] US MAMMARY ARTERY TAMMI VAS LA Bon 11-28-2023 US MAMMARY ARTERY [facility]MI [facility] LAB Non-Invasive Vascular Laboratory Main Hortense J35 Artery Mapping Study Bilateral/Complete Date of service/time: 11/28/2023 8:53:03 AM Name: CECE HUBBARD Date of : 1945 Age: 78 years Gender: F Clinical Indication Pre-op open heart surgery. FINDINGS -------- Right systolic blood pressure: 155 mmHg Left systolic blood pressure: 151 mmHg RIGHT Mammary artery Proximal: 2.5 mm. PSV 118 cm/s. EDV 10 cm/s. Multiphasic waveform. Mid: 2.3 mm. PSV 60 cm/s. EDV 10 cm/s. Multiphasic waveform. Distal: 2.5 mm. PSV 81 cm/s. EDV 12 cm/s. Multiphasic waveform. LEFT Mammary artery Mid: 1.7 mm. PSV 22 cm/s. EDV 0 cm/s. Monophasic, high resistive waveform. Distal: 1.7 mm. PSV 36 cm/s. EDV 6 cm/s. Monophasic, high resistive waveform. IMPRESSION No significant discrepancy in brachial systolic blood pressure measurements from right to left sides. RIGHT Measurements listed above; patent mammary artery. LEFT Abnormal waveforms suggest possible more proximal stenosis in the subclavian, axillary, or proximal mammary artery. May wish other means of evaluation. Patent mammary artery. Unable to visualise at proximal. Technologist: Lucio Ramos T Ordering physician: JOEL PARRISH Interpreting physician: Nany Ohara MD, RPADRIANA Final CC [employer] [facility] Image : [id number] See Link below for Image Normal [facility] RADIAL ARTERY MAP TAMMI VAS LABon 11-28-2023 US RADIAL ARTERY MAP [facility]AMMI VAS LAB Non-Invasive Vascular Laboratory [place] [address] Artery Mapping Study Bilateral/Complete Date of service/time: 11/28/2023 9:17:12 AM Name: CECE HUBBARD Date of : 1945 Age: 78 years Gender: F Clinical Indication Pre-op open heart surgery and previous history of vein stripping. FINDINGS -------- RIGHT Radial artery Proximal: 2.4 mm. PSV 81 cm/s. EDV 0 cm/s. Multiphasic waveform. Mid: 2.4 mm. PSV 72 cm/s. EDV 0 cm/s. Multiphasic waveform. Distal: 2.6 mm. PSV 70 cm/s. EDV 0 cm/s. Multiphasic waveform. Brachial artery at distal: PSV 76 cm/s. EDV 0 cm/s. Multiphasic waveform. Ulnar artery PSV 41 cm/s. EDV 0 cm/s. Multiphasic waveform. LEFT Radial artery Proximal: 2.9 mm. PSV 65 cm/s. EDV 0 cm/s. Multiphasic waveform. Mid: 2.7 mm. PSV 68 cm/s. EDV 0 cm/s. Multiphasic waveform. Distal: 2.8 mm. PSV 52 cm/s. EDV 0 cm/s. Multiphasic waveform. Brachial artery PSV 102 cm/s. EDV 0 cm/s. Multiphasic waveform. Ulnar artery PSV 19 cm/s. EDV 0 cm/s. Multiphasic waveform. IMPRESSION RIGHT Measurements listed above; patent radial artery. Compression of the radial artery does not compromise flow to digit, however, a mild decrease in amplitude is noted. LEFT Measurements listed above; patent radial artery. Compression of the radial artery compromises flow to the digits. Technologist: Lucio Ramos T Ordering physician: JOEL PARRISH Interpreting physician: Nany Ohara MD, RPADRIANA Final CC [employer] [facility] Image : [id number] See Link below for Image Normal [facility] Bacteria Ur Culton 4 Bacteria identified Cx Nom (U) ORGANISM ID: 1 <10,000 CFU/ml Normal urogenital cecille Normal [facility] Comment on above: Performed By: #### 3 4528-0, PTTAC #### [facility] CLIA [id number] [address] [place] [address] [place] CBC panel Auto (Bld)on 11-26 Erythrocyte distribution width (RBC) [Ratio] 14.3 % Normal 11.5-15.0 [facility] Comment on above: Order Comment: Speci men Type: BLOOD SPECIMEN [facility] Address: [address] [place] [address] Performed By: #### 3 4528-0, PTTAC #### [facility] CLIA [id number] [address] [place] [address] [place] Hematocrit (Bld) [Volume fraction] 35.3 % Low 36.0-46.0 [facility] Comment on above: Order Comment: Speci men Type: BLOOD SPECIMEN [facility] Address: [address] [place] [address] Performed By: #### 3 4528-0, PTTAC #### [facility] CLIA [id number] [address] [place] [address] [place] Hemoglobin (Bld) [Mass/Vol] 11.6 g/dL Normal 11.5-15.5 [facility] Comment on above: Order Comment: Speci men Type: BLOOD SPECIMEN [facility] Address: [address] [place] [address] Performed By: #### 3 4528-0, PTTAC #### [facility] CLIA [id number] [address] [place], [place] [address] [place] MCH (RBC) [Entitic mass] 31.4 pg Normal 26.0-34.0 [facility] Comment on above: Order Comment: Speci men Type: BLOOD SPECIMEN [facility] Address: [address] [place] [address] Performed By: #### 3 4528-0, PTTAC #### [facility] CLIA [id number] [address] [place] [address] [place] MCHC (RBC) [Mass/Vol] 32.9 g/dL Normal 30.5-36.0 [facility] Comment on above: Order Comment: Speci men Type: BLOOD SPECIMEN [facility] Address: [address] [place] [address] Performed By: #### 3 4528-0, PTTAC #### [facility] CLIA [id number] [address] [place] [address] [place] MCV (RBC) [Entitic vol] 95.4 fL Normal 80.0-100.0 [facility] Comment on above: Order Comment: Speci men Type: BLOOD SPECIMEN [facility] Address: [address] [place] [address] Performed By: #### 3 4528-0, PTTAC #### [facility] CLIA [id number] [address] [place] [address] [place] Nucleated RBC (Bld) [#/Vol] 10*3/uL Normal <0.01 [facility] Comment on above: Order Comment: Speci men Type: BLOOD SPECIMEN [facility] Address: [address] [place] [address] Performed By: #### 3 4528-0, PTTAC #### [facility] [facility] CLIA [id number] [address] [place] [address] [place] Platelet mean volume (Bld) [Entitic vol] 10.9 fL Normal 9.0-12.7 [facility] Comment on above: Order Comment: Speci men Type: BLOOD SPECIMEN Ordering Facility: [facility] Address: [address] [place] [address] Performed By: #### 3 4528-0, PTTAC #### [facility] CLIA [id number] [address] [place] [address] [place] Platelets (Bld) [#/Vol] 155 10*3/uL Normal 150-400 [facility] Comment on above: Order Comment: Speci men Type: BLOOD SPECIMEN Ordering Facility: [facility] Address: [address] [place] [address] Performed By: #### 3 4528-0, PTTAC #### [facility] CLIA [id number] [address] [place] [address] [place] RBC (Bld) [#/Vol] 3.70 10*6/uL Low 3.90-5.[address] [facility] Comment on above: Order Comment: Speci men Type: BLOOD SPECIMEN Ordering Facility: [facility] Address: [address] [place] [address] Performed By: #### 3 4528-0, PTTAC #### [facility] CLIA [id number] [address] [place] [address] [place] WBC (Bld) [#/Vol] 5.15 10*3/uL Normal 3.70-11.[address] [facility] Comment on above: Order Comment: Speci men Type: BLOOD SPECIMEN Ordering Facility: [facility] Address: [address] [place] [address] Performed By: #### 3 4528-0, PTTAC #### [facility] CLIA [id number] [address] [place] [address] [place] CONSULT PROGon 11-27-2023 CONSULT PROG HNO ID: [id number] Author: CHRISTINE BRICE APRN.UTILIZATION SPECIALIST Service: Cardiac Surgery Author Type: Nurse Practitioner Type: Consult Progress Note Filed: 11/27/2023 17:52 Note Text: Cardiac Surgery Consult Progress note AND Preop Checklist Patient Name: Cece Hubbard : 1945 Primary Service: Joel Parrish MD Proposed Surgery: MVr, CABG, LAAL+/- Maze REDO: No Surgery Date: TBD Surgeon: Dr. Shaw Hospital Day: 2 Subjective/HPI: Cece Hubbard is 78 year old female with past medical history of aortic regurgitation, coronary artery disease, HFpEF, HTN, HLD, CAD status post PCI to LAD and RCA 2019, HFpEF, MR, AR, PAF on eliquis, CKD3 (SCr 1.4-1.5), and hypothyroidism who presents with CAD and mitral valve regurgitation. She is currently symptomatic and complains of HOLLY. The patient is planned to undergo surgery on 12/05/2023 and felt that she would be unable to undergo surgery by 12/05/2023 safely (with Dr. Gaetano Shaw). Recent C in 10/2023 was complicated by RIGHT femoral pseudoaneurysm that has intervally gone away. Currently resides in [place], [place] with Elio. Retired from [employer]. Denied smoking/street drugs/EtOH use. Right handed. No physical limitations, apart from having to stop to catch breath. Has hardware s/p Right TKR and lower back fixation. Interval History: No acute events. Dyspnea with exertion unchanged. Eccymosis to right forearm from heparin infusion. States bruises easily. -Groin US with residual hematoma x 2 Objective: BP 132/78 Pulse 71 Temp 36.9 ?C (98.4 ?F) (Oral) Resp 18 Wt 79.4 kg (175 lb 0.7 oz) SpO2 98% BMI 30.05 kg/m? Interval Physical Exam: General appearance: Well appearing, alert, in no acute distress, well-hydrated, well nourished. Lungs: Lungs clear to auscultation. No wheezing, rhonchi, rales. Heart: RRR without gallop, or rubs. +Murmur. No ectopy Abdomen: Normal abdominal exam, Abdomen soft, non-tender. Bowel sounds normal. No masses, organomegaly Extremities: No deformities, edema, skin discoloration, clubbing or cyanosis. Good capillary refill. Peripheral pulses: Capillary refill <2secs, strong peripheral pulses Neuro: Gait normal. Reflexes normal and symmetric. Sensation grossly intact. Recommendations/Plan: Patient will be seen TBD by the surgeon, Dr. Metcalf. Before surgery the patient will need the following: Carotid US Vein mapping, Mammary US PFTs Chest CT Urine C/S Nasal swab Echo Monitor right groin and right arm, on heparin Anticipated Discharge Needs: PT/OT/RT evalulation for anticipated Home Care needs [facility] PRE-OP CHECKLIST Informed Consent Completed: No H AND P completed: Yes STS Score: not supported CAD: Yes - CAD on Problem List: Yes Is intended procedure a CABG: Yes - is a beta ken ordered? No - reason: per primary Cath: Yes - reviewed: Yes PA/LAT: Completed 11/24/23 CT: Completed 11/27/23 IMPRESSION: AORTIC VALVE: assessment is limited in the current study. No leaflet calcification. ECTASIA/MILD DILATION ASCENDING AORTA: 3.9 cm -No evidence of wall calcification ascending thoracic aorta and aortic arch CORONARY ANATOMY: Coronary stent of the LAD and RCA, assessment is limited due to metal artifact. LUNGS: non-calcified 3 mm nodule right middle lung lobe (Image # 121) (see saved images). Incidental Finding: Follow-up Acuity: Incidental Finding: Solid: <6 mm (solitary or multiple) Routing Code: N/A Recommendation: No imaging follow-up is recommended Time Frame: N/A Comments: If there are risk factors for lung malignancy, a follow-up chest CT exam could be obtained in 12 months MRI: N/A US Groin:11/26 RIGHT SIDE Negative for deep vein thrombosis, arteriovenous fistula and pseudoaneurysm. External iliac artery patent at distal . Common femoral artery patent . Profunda femoral artery patent at proximal . Superficial femoral artery patent at proximal . There appears to be 2 hematomas near the right groin. The first one is anterior to the common femoral vein. It measures approximately 1.6 x 2.9 x 1.8cm. The second one is at proximal thigh. It measures approximately 4.2 x 0.7 x 2.0cm. EKG: Completed Is patient on Amiodarone? Yes Procedure Date : Nov 26 2023 03:03:15 Edit Date : Nov 26 2023 03:06:26 Diagnosis: NORMAL SINUS RHYTHM NORMAL ECG Echo:Pending EF %: LV Ejection Fraction (%) Date Value 10/28/2023 67 PI's: Pending, Right handed Carotid: Pending Mapping: Pending PFT's: Pending Dental: Cleared Recent Labs 11/27/23 0433 WBC 5.15 HB 11.6 HCT 35.3* PLT 155 INR 1.0 CREAT 1.78* No results found for: HBA1C Lab Results Component Value Date TSH 4.790 (H) 10/26/2023 O ABO/RH(D) Date Value Ref Range Status 05/12/2012 O NEG Final Antibody Screen Date Value Ref Range Status 11/26/2023 Negative Final Blood ordered: No Willing to accep (more content not included)... Normal [facility] CT CHEST CARDIAC WO IVCONon 11-27-2023 CT CHEST CARDIAC WO IVCON * * *Final Report* * * DATE OF EXAM: Nov 27 2023 8:37AM JQC 2055 - CT CHEST CARDIAC WO IVCON / PROCEDURE REASON: Prior revascularization (either PTCA or CABG) * * * * Physician Interpretation * * * * CT Aorta chest Direct Image Comparison: CXR 11/27/2023 HISTORY: 78 years old Female recently admitted with worsening h/o dyspnea on on exertion in context of significant mitral regurgitation. Known h/o CAD status post PCI to LAD and RCA, HFpEF, AR Evaluation for further treatment options, including cardiothoracic surgery. There is request to define thoracic and aortic anatomy TECHNIQUE: SCANNER: in-patient Siemens Definition + 128-slice scanner PROTOCOL: Sequential imaging of the chest with prospective triggering in diastolic phase without intravenous administration of contrast material. Scan Range: thoracic inlet to the diaphragm CT Dose-Length Product (DLP): 172 mGy*cm CT Dose Reduction Employed: Automated exposure control (AEC) CONTRAST: None Scan acquisition: uncomplicated Macro Version: [id number] For optimization of anatomic evaluation postprocessing was performed on a dedicated workstation by the interpreting physician. Additional lung CAD. Murphy images reconstructed, saved, and available in [employer] 'Get Images'. STUDY LIMITATIONS: None. RESULT: LINES, TUBES and DEVICES: None CHEST: Chest wall anatomy: unremarkable. LUNGS: Small calcified lung nodules. - non-calcified 3 mm nodule right middle lung lobe (Image # 121) (see saved images). Follow-up recommendations: see Impression MEDIASTINUM: small mediastinal lymph nodes, which are not pathologic by size criteria. PERICARDIUM: unremarkable CENTRAL PULMONARY ARTERY: normal dimensions. Assessment is limited due to lack of contrast enhancement. CARDIAC CHAMBERS: assessment is limited in the non-contrast study. LEFT VENTRICLE: normal size. RIGHT VENTRICLE: normal size Left atrium: moderately dilated. MAGDALENO: assessment is limited in the non-contrast study. Right atrium: prominent CENTRAL VENOUS and PULMONARY VENOUS RETURN: appears normal within limitations of non-contrast study. Coronary Sinus: normal size MITRAL VALVE: assessment is limited in the current study - minimal calcification at the base of the anterior mitral leaflet. No annular calcification TRICUSPID and PULMONIC VALVE: appear unremarkable. CORONARY ANATOMY: normal origin of the coronary arteries. No definitive evidence of calcified atherosclerotic changes of the coronary arteries. Coronary stent of the LAD and RCA, assessment is limited due to metal artifact. AORTIC VALVE: assessment is limited in the current study. No leaflet calcification. AORTA: Pathology: assessment for acute aortic pathology is limited in the non-contrast study. Intervention: None Complications: n/a Aortic Size: Ectasia/Mild Dilation ascending aorta. STJ: maintained Wall Changes: No evidence of wall calcification ascending thoracic aorta and aortic arch. Mild calcified wall changes descending thoracic aorta. Arch Branch Vessels: Normal size proximal segments of the arch branch vessels, without evidence of wall calcification. Common origin of the innominate and left carotid artery. AORTIC DIMENSIONS: AORTIC ROOT: 3.5 cm measured [id number] mid ASCENDING THORACIC AORTA: 3.9 cm mid AORTIC ARCH: 2.9 cm mid DESCENDING THORACIC AORTA: 2.7 cm RELATIONSHIP OF THE CARDIOVASCULAR STRUCTURES OF THE STERNUM: Left brachio-cephalic vein lies 8 mm behind the manubrium sternum RV lies 7 mm behind the lower sternum limited upper ABDOMEN: unremarkable Robotics Testing Technician (topogram) images: Surgical fixation material of the lumbar spine IMPRESSION: AORTIC VALVE: assessment is limited in the current study. No leaflet calcification. ECTASIA/MILD DILATION ASCENDING AORTA: 3.9 cm -No evidence of wall calcification ascending thoracic aorta and aortic arch CORONARY ANATOMY: Coronary stent of the LAD and RCA, assessment is limited due to metal artifact. LUNGS: non-calcified 3 mm nodule right middle lung lobe (Image # 121) (see saved images). Incidental Finding: Follow-up Acuity: Incidental Finding: Solid: <6 mm (solitary or multiple) Routing Code: N/A Recommendation: No imaging follow-up is recommended Time Frame: N/A Comments: If there are risk factors for lung malignancy, a follow-up chest CT exam could be obtained in 12 months --END OF FINDING-- COMMUNICATION:? Results will be communicated with the ordering provider via [employer] staff message by [employer] within 2 business days of report finalization. Housing Management Representative: SCOTT Transcribe Date/Time: Nov 27 2023 8:57A Dictated by : FLORENCE FERNÁNDEZ MD This examination was interpreted and the report reviewed and electronically signed by: FLORENCE FERNÁNDEZ MD on Nov 27 2023 9:34AM EST [id number] [id number] Invalid Interpretation Code [facility] metabolic 2000 panelon 11-27-2023 Albumin [Mass/Vol] 4.0 g/dL Normal 3.9-4.9 [facility] Comment on above: Order Comment: Speci men Type: BLOOD SPECIMENOrdering Facility: [facility] Address: [address] [place] [address] Performed By: #### 2 4323-03, ####[facility] [id number] [place] [address] [place] ALP [Catalytic activity/Vol] 88 U/L Normal 34-123 [facility] Comment on above: Order Comment: Speci men Type: BLOOD SPECIMENOrdering Facility: [facility] Address: [address] [place] [address] Performed By: #### 2 4323-03, ####[facility] [id number] [place] [id number] [place] ALT [Catalytic activity/Vol] 9 U/L Normal 7-38 [facility] Comment on above: Order Comment: Speci men Type: BLOOD SPECIMENOrdering Facility: [facility] Address: [address] [place] [address] Performed By: #### 2 432-, ####[facility] [id number] [place] [address] [place] Anion gap [Moles/Vol] 13 mmol/L Normal 9-18 [facility] Comment on above: Order Comment: Speci men Type: BLOOD SPECIMENOrdering Facility: [facility] Address: [address] [place] [address] Performed By: #### 2 4323-8, ####[facility] [id number] [place] [address] [place] AST [Catalytic activity/Vol] 12 U/L Low 13-35 [facility] Comment on above: Order Comment: Speci men Type: BLOOD SPECIMENOrdering Facility: [facility] Address: [address] [place] [address] Performed By: #### 2 4323-8, ####[facility] [id number] [place] [address] [place] Bilirubin [Mass/Vol] 0.6 mg/dL Normal 0.2-1.3 [facility] Comment on above: Order Comment: Speci men Type: BLOOD SPECIMENOrdering Facility: [facility] Address: [address] [place] [address] Performed By: #### 2 4323-8, ####[facility] [id number] [place] [address] [place] Calcium [Mass/Vol] 9.6 mg/dL Normal 8.5-10.2 [facility] Comment on above: Order Comment: Speci men Type: BLOOD SPECIMENOrdering Facility: [facility] Address: [address] [place] [address] Performed By: #### 2 4323-8, ####[facility] [id number] [place] [id number] [place] Chloride [Moles/Vol] 101 mmol/L Normal 97-105 [facility] Comment on above: Order Comment: Speci men Type: BLOOD SPECIMENOrdering Facility: [facility] Address: [address] [place] [address] Performed By: #### 2 4323-8, ####[facility] [id number] [place] [id number] [place] CO2 [Moles/Vol] 25 mmol/L Normal 22-30 [facility] Comment on above: Order Comment: Speci men Type: BLOOD SPECIMENOrdering Facility: [facility] Address: [address] [place] [address] Performed By: #### 2 4323-8, ####[facility] [id number] [place] [address] [place] Creatinine [Mass/Vol] 1.78 mg/dL High 0.58-0.96 [facility] Comment on above: Order Comment: Speci men Type: BLOOD SPECIMENOrdering Facility: [facility] Address: [address] [place] [address] Performed By: #### 2 4323-8, ####[facility] [id number] [address] [place] Creatinine and Glomerular filtration rate.predicted panel (S/P/Bld) 29 mL/min/1.73m??? Low >=60 [facility] Comment on above: Order Comment: Speci men Type: BLOOD SPECIMENOrdering Facility: [facility] Address: [address] [place] [address] Result Comment: Amy mated Glomerular Filtration Rate [...] accurately reflect actual GFR. Performed By: #### 2 4323-8, ####[facility] [id number] [address] [address] [place] Glucose [Mass/Vol] 109 mg/dL High 74-99 [facility] Comment on above: Order Comment: Speci men Type: BLOOD SPECIMENOrdering Facility: [facility] Address: [address] [place] [address] Result Comment: The [place] Diabetes Association (ADA) provides guidance for cutoff [...] Standards of Medical Care in Diabetes 2016, [place] [employer]. Diabetes Care. 2016.39(Suppl 1). Performed By: #### 2 4323-8, ####[facility]IA [id number] [place] [address] [place] Potassium [Moles/Vol] 3.9 mmol/L Normal 3.7-5.1 [facility] Comment on above: Order Comment: Speci men Type: BLOOD SPECIMENOrdering Facility: [facility] Address: [address] [place] [address] Performed By: #### 2 4323-8, ####[facility]IA [id number] [place] [address] [place] Protein [Mass/Vol] 6.4 g/dL Normal 6.3-8.0 [facility] Comment on above: Order Comment: Speci men Type: BLOOD SPECIMENOrdering Facility: [facility] Address: [address] [place] [address] Performed By: #### 2 432-8, ####[facility] [id number] [place] [id number] [place] Sodium [Moles/Vol] 139 mmol/L Normal 136-144 [facility] Comment on above: Order Comment: Speci men Type: BLOOD SPECIMENOrdering Facility: [facility] Address: [address] [place] [address] Performed By: #### 2 4323-8, ####[facility] [id number] [place] [id number] [place] Urea nitrogen [Mass/Vol] 22 mg/dL High 7-21 [facility] Comment on above: Order Comment: Speci men Type: BLOOD SPECIMENOrdering Facility: [facility] Address: [address] [place] [address] Performed By: #### 2 4323-8, ####[facility] [id number] [place] [address] [place] Magnesium SerPl-mCncon 11-26 Magnesium [Mass/Vol] 2.2 mg/dL Normal 1.7-2.3 [facility] Comment on above: Order Comment: Speci men Type: BLOOD SPECIMENOrdering Facility: [facility] Address: [address] [place] [address] Performed By: #### 2 4323-8, ####[facility] [id number] [place] [id number] [place] PT panel Coag (PPP)on 2023 INR Coag (PPP) [Relative time] 1.0 {INR} Normal 0.9-1.3 [facility] Comment on above: Order Comment: Speci men Type: BLOOD SPECIMENOrdering Facility: [facility] Address: [address] [place] [address] Result Comment: Janeth min K Antagonist (VKA) Therapeutic Range: INR 2 to 3 (Target INR of 2.5) Note: For patients treated with VKA drugs, such as warfarin, the [place] [employer] 2012 Guideline recommends [...] 2.5 to 3.5 (target INR of 3). Dicksontt GH, et al. Chest 2012, 141:7S-47S Mary RA, et al. [facility] 2017, 70: 252-289 Performed By: #### 3 4528-0, PTTAC ####[facility] [id number] [place] [address] [place] PT Coag (PPP) [Time] 10.9 s Normal 9.7-13.0 [facility] Comment on above: Order Comment: Speci men Type: BLOOD SPECIMENOrdering Facility: [facility] Address: [address] [place] [address] Performed By: #### 3 4528-0, PTTAC ####[facility]IA [id number] [place] [address] [place] PTT, ANTICOAGULANT THERAPYon 11-27-2023 aPTT Coag (PPP) [Time] 66.3 s High 23.0-32.4 [facility] Comment on above: Order Comment: Speci men Type: BLOOD SPECIMENOrdering Facility: [facility] Address: [address] [place] [address] Performed By: #### 3 4528-0, PTTAC ####[facility] [id number] [place] [address] [place] STAPHYLOCOCCUS AUREUS AND MR SA SCREEN, PCR, NASALon 11-27-2023 S. aureus and MRSA panel ERICK+probe (Nose) Normal Negative [facility] Comment on above: Order Comment: Speci men Type: SWABOrdering Facility: [facility] Address: [address] [place] [address] Result Comment: Nega tive for Staphylococcus aureus by PCR. Negative for MRSA by PCR Performed By: #### S APCR ####[facility]IA [id number] [address] [place] [address] [place] US CAROTID ARTERIES [facility]on 11-27-2023 US CAROTID ARTERIES [facility] Non-Invasive Vascular Laboratory [facility] Portable Carotid Duplex Bilateral/Complete Date of service/time: 11/27/2023 11:11:50 AM Name: CECE HUBBARD Date of : 1945 Age: 78 years Gender: F Clinical Indication Pre op for cardiac surgery. TECHNIQUE -------- A carotid duplex ultrasound examination was performed, including grayscale imaging and color Doppler and spectral Doppler examination of the below mentioned arteries. FINDINGS -------- RIGHT SIDE Common carotid artery: Origin: PSV: 93 cm/s. EDV: 13 cm/s. Proximal: PSV: 75 cm/s. EDV: 11 cm/s. Mid: PSV: 72 cm/s. EDV: 15 cm/s. Distal: PSV: 73 cm/s. EDV: 12 cm/s. Mild heterogeneous plaque at distal. Internal carotid artery: Origin: PSV: 48 cm/s. EDV: 15 cm/s. Proximal: PSV: 46 cm/s. EDV: 14 cm/s. Mid: PSV: 72 cm/s. EDV: 22 cm/s. Distal: PSV: 51 cm/s. EDV: 14 cm/s. Mild heterogeneous plaque at origin. ICA/CCA Ratio: 1.0 External carotid artery: Proximal: PSV: 76 cm/s. EDV: 0 cm/s. Subclavian artery: Proximal: PSV: 100 cm/s. EDV: 0 cm/s. Innominate artery: PSV: 225 cm/s. EDV: 0 cm/s. Vertebral artery: PSV: 38 cm/s. EDV: 13 cm/s. LEFT SIDE Common carotid artery: Proximal: PSV: 90 cm/s. EDV: 11 cm/s. Mid: PSV: 75 cm/s. EDV: 15 cm/s. Distal: PSV: 66 cm/s. EDV: 16 cm/s. Internal carotid artery: Origin: PSV: 62 cm/s. EDV: 13 cm/s. Proximal: PSV: 65 cm/s. EDV: 17 cm/s. Mid: PSV: 82 cm/s. EDV: 25 cm/s. Distal: PSV: 89 cm/s. EDV: 28 cm/s. ICA/CCA Ratio: 1.4 External carotid artery: Proximal: PSV: 69 cm/s. EDV: 0 cm/s. Subclavian artery: Proximal: PSV: 151 cm/s. EDV: 0 cm/s. Vertebral artery: PSV: 53 cm/s. EDV: 15 cm/s. IMPRESSION RIGHT SIDE Common carotid artery: Plaque visualized without evidence of hemodynamically significant stenosis. Internal carotid artery: 20-39% stenosis. Vertebral artery: Patent and antegrade flow noted. LEFT SIDE Internal carotid artery: 0-19% stenosis. Vertebral artery: Patent and antegrade flow noted. Subclavian artery: Patent. Technologist: Marlene Orosco RVT Ordering physician: EVA DOW Interpreting physician: Rachell Tellez MD, MILAGROVI Final CC [employer] [facility] : [id number] See Link below for Image Normal [facility] LEG VEIN MAP [facility] LABo n 11-27-2023 US LEG VEIN MAP [facility] Non-Invasive Vascular Laboratory [facility] Portable Lower Extremity Vein Mapping Bilateral/Complete Date of service/time: 11/27/2023 11:40:57 AM Name: CECE HUBBARD Date of : 1945 Age: 78 years Gender: F Clinical Indication Pre-op open heart surgery. FINDINGS -------- RIGHT Great saphenous vein: Saphenofemoral junction: 8.1 mm Proximal thigh: 4.3 mm Mid thigh: 3.0 mm Distal thigh: 2.9 mm Knee: 2.8 mm Small saphenous vein: Proximal calf: 2.6 mm Mid calf: 1.8 mm Distal calf: 1.6 mm LEFT Great saphenous vein: Saphenofemoral junction: 6.5 mm Proximal thigh: 3.3 mm Mid thigh: 2.6 mm Distal thigh: 2.2 mm Knee: 2.3 mm Small saphenous vein: Proximal calf: 2.3 mm Mid calf: 2.0 mm Distal calf: 2.3 mm IMPRESSION RIGHT Great saphenous vein: Patent with measurements as indicated above. Discontinuous vein knee to distal calf. Small saphenous vein: Patent with measurements as indicated above. LEFT Great saphenous vein: Patent with measurements as indicated above. Discontinuous vein knee to distal calf. Small saphenous vein: Patent with measurements as indicated above. Technologist: Marlene Orosco RVT Ordering physician: HARRISON ANDREWS Interpreting physician: Rachell Tellez MD, PALAK Final CC [employer] : [id number] See Link below for Image Normal [facility] CBC W Auto Differential pane l (Bld)on 11-26-2023 Basophils (Bld) [#/Vol] 0.05 10*3/uL Normal <0.11 [facility] Comment on above: Order Comment: Speci men Type: BLOOD SPECIMENOrdering Facility: [facility] Address: [address] [place] [address] Performed By: #### 5 7021-8 ####[facility] LABCLIA [id number] [place] [address] [place] Basophils/100 WBC (Bld) 0.9 % Normal [facility] Comment on above: Order Comment: Speci men Type: BLOOD SPECIMENOrdering Facility: [facility] Address: [address] [place] [address] Performed By: #### 5 7021-8 ####[facility] LABCLIA [id number] [place] [address] [place] Differential cell count method Nom (Bld) Auto Normal [facility] Comment on above: Order Comment: Speci men Type: BLOOD SPECIMENOrdering Facility: [facility] Address: [address] [place] [address] Performed By: #### 5 7021-8 ####[facility] LABCLIA [id number] [place] [address] [place] Eosinophils (Bld) [#/Vol] 0.12 10*3/uL Normal <0.46 [facility] Comment on above: Order Comment: Speci men Type: BLOOD SPECIMENOrdering Facility: [facility] Address: [address] [place] [address] Performed By: #### 5 7021-8 ####[facility] LABCLIA [id number] [place] [address] [place] Eosinophils/100 WBC (Bld) 2.2 % Normal [facility] Comment on above: Order Comment: Speci men Type: BLOOD SPECIMENOrdering Facility: [facility] Address: [address] [place] [address] Performed By: #### 5 7021-8 ####[facility] LABCLIA [id number] [place] [address] [place] Erythrocyte distribution width (RBC) [Ratio] 14.3 % Normal 11.5-15.0 [facility] Comment on above: Order Comment: Speci men Type: BLOOD SPECIMENOrdering Facility: [facility] Address: [address] [place] [address] Performed By: #### 5 7021-8 ####[facility] LABIA [id number] [place] [address] [place] Hematocrit (Bld) [Volume fraction] 35.8 % Low 36.0-46.0 [facility] Comment on above: Order Comment: Speci men Type: BLOOD SPECIMENOrdering Facility: [facility] Address: [address] [place] [address] Performed By: #### 5 7021-8 ####[facility] LABIA [id number] [place] [address] [place] Hemoglobin (Bld) [Mass/Vol] 11.6 g/dL Normal 11.5-15.5 [facility] Comment on above: Order Comment: Speci men Type: BLOOD SPECIMENOrdering Facility: [facility] Address: [address] [place] [address] Performed By: #### 5 7021-8 ####[facility] LABIA [id number] [place] [address] [place] Immature granulocytes (Bld) [#/Vol] 10*3/uL Normal <0.10 [facility] Comment on above: Order Comment: Speci men Type: BLOOD SPECIMENOrdering Facility: [facility] Address: [address] [place] [address] Performed By: #### 5 7021-8 ####[facility] LABIA [id number] [place] [address] [place] Immature granulocytes/100 WBC (Bld) 0.2 % Normal [facility] Comment on above: Order Comment: Speci men Type: BLOOD SPECIMENOrdering Facility: [facility] Address: [address] [place] [address] Performed By: #### 5 7021-8 ####[facility] LABCLIA [id number] [place] [address] [place] Lymphocytes (Bld) [#/Vol] 1.69 10*3/uL Normal 1.00-4.00 [facility] Comment on above: Order Comment: Speci men Type: BLOOD SPECIMENOrdering Facility: [facility] Address: [address] [place] [address] Performed By: #### 5 7021-8 ####[facility] LABCLIA [id number] [place] [address] [place] Lymphocytes/100 WBC (Bld) 30.6 % Normal [facility] Comment on above: Order Comment: Speci men Type: BLOOD SPECIMENOrdering Facility: [facility] Address: [address] [place] [address] Performed By: #### 5 7021-8 ####[facility] LABIA [id number] [place] [address] [place] MCH (RBC) [Entitic mass] 31.2 pg Normal 26.0-34.0 [facility] Comment on above: Order Comment: Speci men Type: BLOOD SPECIMENOrdering Facility: [facility] Address: [address] [place] [address] Performed By: #### 5 7021-8 ####[facility] LABCLIA [id number] [place] [address] [place] MCHC (RBC) [Mass/Vol] 32.4 g/dL Normal 30.5-36.0 [facility] Comment on above: Order Comment: Speci men Type: BLOOD SPECIMENOrdering Facility: [facility] Address: [address] [place] [address] Performed By: #### 5 7021-8 ####[facility] LABIA [id number] [place] [address] [place] MCV (RBC) [Entitic vol] 96.2 fL Normal 80.0-100.0 [facility] Comment on above: Order Comment: Speci men Type: BLOOD SPECIMENOrdering Facility: [facility] Address: [address] [place] [address] Performed By: #### 5 7021-8 ####[facility] LABCLIA [id number] [place] [address] [place] Monocytes (Bld) [#/Vol] 0.63 10*3/uL Normal <0.87 [facility] Comment on above: Order Comment: Speci men Type: BLOOD SPECIMENOrdering Facility: [facility] Address: [address] [place] [address] Performed By: #### 5 7021-8 ####[facility] LABCLIA [id number] [place] [address] [place] Monocytes/100 WBC (Bld) 11.4 % Normal [facility] Comment on above: Order Comment: Speci men Type: BLOOD SPECIMENOrdering Facility: [facility] Address: [address] [place] [address] Performed By: #### 5 7021-8 ####[facility] LABCLIA [id number] [place] [address] [place] Neutrophils (Bld) [#/Vol] 3.02 10*3/uL Normal 1.45-7.50 [facility] Comment on above: Order Comment: Speci men Type: BLOOD SPECIMENOrdering Facility: [facility] Address: [address] [place] [address] Performed By: #### 5 7021-8 ####[facility] LABCLIA [id number] [place] [address] [place] Neutrophils/100 WBC (Bld) 54.7 % Normal [facility] Comment on above: Order Comment: Speci men Type: BLOOD SPECIMENOrdering Facility: [facility] Address: [address] [place] [address] Performed By: #### 5 7021-8 ####[facility] LABCLIA [id number] [place] [address] [place] Nucleated RBC (Bld) [#/Vol] 10*3/uL Normal <0.01 [facility] Comment on above: Order Comment: Speci men Type: BLOOD SPECIMENOrdering Facility: [facility] Address: [address] [place] [address] Performed By: #### 5 7021-8 ####[facility] LABIA [id number] [place] [address] [place] Nucleated RBC/100 WBC (Bld) [Ratio] 0.0 /100 WBC Normal [facility] Comment on above: Order Comment: Speci men Type: BLOOD SPECIMENOrdering Facility: [facility] Address: [address] [place] [address] Performed By: #### 5 7021-8 ####[facility] LABIA [id number] [place] [address] [place] Platelet mean volume (Bld) [Entitic vol] 11.3 fL Normal 9.0-12.7 [facility] Comment on above: Order Comment: Speci men Type: BLOOD SPECIMENOrdering Facility: [facility] Address: [address] [place] [address] Performed By: #### 5 7021-8 ####[facility] LABCLIA [id number] [place] [address] [place] Platelets (Bld) [#/Vol] 178 10*3/uL Normal 150-400 [facility] Comment on above: Order Comment: Speci men Type: BLOOD SPECIMENOrdering Facility: [facility] Address: [address] [place] [address] Performed By: #### 5 7021-8 ####[facility] LABCLIA [id number] [place] [address] [place] RBC (Bld) [#/Vol] 3.72 10*6/uL Low 3.90-5.[address] [facility] Comment on above: Order Comment: Speci men Type: BLOOD SPECIMENOrdering Facility: [facility] Address: [address] [place] [address] Performed By: #### 5 7021-8 ####[facility] LABCLIA [id number] [place] [address] [place] WBC (Bld) [#/Vol] 5.52 10*3/uL Normal 3.70-11.[address] [facility] Comment on above: Order Comment: Speci men Type: BLOOD SPECIMENOrdering Facility: [facility] Address: [address] [place] [address] Performed By: #### 5 7021-8 ####[facility] LABCLIA [id number] [place] [address] [place] CBC panel Auto (Bld)on 11-25 Erythrocyte distribution width (RBC) [Ratio] 14.5 % Normal 11.5-15.0 [facility] Comment on above: Order Comment: Speci men Type: BLOOD SPECIMENOrdering Facility: [facility] Address: [address] [place] [address] Performed By: #### 5 8410-2 ####[facility] LABCLIA [id number] [place] [address] [place] Hematocrit (Bld) [Volume fraction] 33.9 % Low 36.0-46.0 [facility] Comment on above: Order Comment: Speci men Type: BLOOD SPECIMENOrdering Facility: [facility] Address: [address] [place] [address] Performed By: #### 5 8410-2 ####[facility] LABCLIA [id number] [place] [address] [place] Hemoglobin (Bld) [Mass/Vol] 11.1 g/dL Low 11.5-15.5 [facility] Comment on above: Order Comment: Speci men Type: BLOOD SPECIMENOrdering Facility: [facility] Address: [address] [place] [address] Performed By: #### 5 8410-2 ####[facility] LABIA [id number] [place] [address] [place] MCH (RBC) [Entitic mass] 31.0 pg Normal 26.0-34.0 [facility] Comment on above: Order Comment: Speci men Type: BLOOD SPECIMENOrdering Facility: [facility] Address: [address] [place] [address] Performed By: #### 5 8410-2 ####[facility] [id number] [place] [address] [place] MCHC (RBC) [Mass/Vol] 32.7 g/dL Normal 30.5-36.0 [facility] Comment on above: Order Comment: Speci men Type: BLOOD SPECIMENOrdering Facility: [facility] Address: [address] [place] [address] Performed By: #### 5 8410-2 ####[facility] LABIA [id number] [place] [address] [place] MCV (RBC) [Entitic vol] 94.7 fL Normal 80.0-100.0 [facility] Comment on above: Order Comment: Speci men Type: BLOOD SPECIMENOrdering Facility: [facility] Address: [address] [place] [address] Performed By: #### 5 8410-2 ####[facility] [id number] [place] [address] [place] Nucleated RBC (Bld) [#/Vol] 10*3/uL Normal <0.01 [facility] Comment on above: Order Comment: Speci men Type: BLOOD SPECIMENOrdering Facility: [facility] Address: [address] [place] [address] Performed By: #### 5 8410-2 ####[facility] LABCLIA [id number] [place] [address] [place] Platelet mean volume (Bld) [Entitic vol] 11.0 fL Normal 9.0-12.7 [facility] Comment on above: Order Comment: Speci men Type: BLOOD SPECIMENOrdering Facility: [facility] Address: [address] [place] [address] Performed By: #### 5 8410-2 ####[facility] LABCLIA [id number] [place] [address] [place] Platelets (Bld) [#/Vol] 153 10*3/uL Normal 150-400 [facility] Comment on above: Order Comment: Speci men Type: BLOOD SPECIMENOrdering Facility: [facility] Address: [address] [place] [address] Performed By: #### 5 8410-2 ####[facility] LABCLIA [id number] [place] [address] [place] RBC (Bld) [#/Vol] 3.58 10*6/uL Low 3.90-5.[address] [facility] Comment on above: Order Comment: Speci men Type: BLOOD SPECIMENOrdering Facility: [facility] Address: [address] [place] [address] Performed By: #### 5 8410-2 ####[facility] LABCLIA [id number] [place] [address] [place] WBC (Bld) [#/Vol] 4.44 10*3/uL Normal 3.70-11.[address] [facility] Comment on above: Order Comment: Speci men Type: BLOOD SPECIMENOrdering Facility: [facility] Address: [address] [place] [address] Performed By: #### 5 8410-2 ####[facility] LABCLIA [id number] [address] [address] [place] CONSULTon 11-26-2023 CONSULT HNO ID: [id number] Author: HARRISON ANDREWS PA-C Service: Cardiac Surgery Author Type: Physician Material Specialist Type: Consults Filed: 11/26/2023 21:55 Note Text: CONSULT HISTORY and PHYSICAL CARDIOTHORACIC SURGERY Consulting Service: Cardiothoracic Surgery Requesting Provider: [facility] 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 Helper, Dr Parrish. Opinion/advice regarding: Pre-Op Open Heart Surgery Cardiothoracic Physician: Dr Metcalf NAME: Cece Hubbard HEIGHT: 162.6 cm WEIGHT: 81.5 kg Intended Procedure: MVr, CABG, LAAL+/- Maze REDO: No STS SCORE: p Has this patient been previously evaluated for Open Heart Surgery for this condition? No HPI: (4) This is a 78 year old female who presents in consultation for an opinion regarding treatment options for atrial fibrillation, aortic regurgitation, coronary artery disease, congestive heart failure, and mitral insufficiency. She is currently symptomatic and complains of HOLLY Mrs Hubbard has a history of HTN, HLD, CAD status post PCI to LAD and RCA 2019, HFpEF, MR, AR, PAF on eliquis, CKD3, hypothyroidism who presented to OSH with worsening dyspnea on on exertion. The patient is planned to undergo surgery on 12/05/2023 and felt that she would be unable to undergo surgery by 12/05/2023 safely (with Dr. Gaetano Shaw). The patient reported that she was told that the surgery had been moved up. She reported that she had presented to the [facility] with dyspnea on 11/24/2023 that was intractable. She reported that she was told by her numerical control machine machinist Dr. Covarrubias who recommended transfer to [facility] for expedited CABG with possible MVR. LHC at OSH demonstrated 70% ISR of proximal RCA. The patient reported chronic dyspnea on exertion and difficulty completing ADLs. She reported that she is able to lie flat. Sleeps with 1 pillow at night. Said symptoms started for years but worse over the past few months. Denied weight gain, in fact has lost some. She denies chest discomfort other than some chest aches when in AFib, denies exertional chest discomfort. Recent LHC in 10/2023 was complicated by RIGHT femoral pseudoaneurysm that has intervally gone away. Currently resides in [place], [place] with Elio. Retired but used to work at [employer] but cannot get me out of my speeding ticket. Denied smoking/street drugs/EtOH use. Able to do housework, but has had to reduce activity dt SOB, stopped walking her dog. PAST MEDICAL HISTORY: History of AF PAST MEDICAL HISTORY Diagnosis Date Aortic insufficiency CAD (coronary artery disease) 04/24/2022 Chronic kidney disease Depression GERD (gastroesophageal reflux disease) HTN (hypertension) Hyperlipidemia Hypothyroidism Knee pain Mitral regurgitation Pseudophakia of both eyes Seasonal allergic rhinitis PAST SURGICAL HISTORY: PAST SURGICAL HISTORY Procedure Laterality Date ARTHRP KNE CONDYLEANDPLATU MEDIALANDLAT COMPARTMENTS 05/11/2012 Knee replacement, total right PAST SURGICAL HISTORY OF 08/11/2010 right knee partial replacement PAST SURGICAL HISTORY OF bilat foot surgery for plantar faciitis PAST SURGICAL HISTORY OF arthroscopy bilat knees POST-CATARACT LASER SURGERY Bilateral 10/10/2022 REMV CATARACT EXTRACAP,INSERT LENS Right 05/15/2022 REMV CATARACT EXTRACAP,INSERT LENS Left 05/01/2022 FAMILY HISTORY: FAMILY HISTORY Problem Relation Age of Onset Cancer Mother Coronary Artery Disease Father Heart Attack Father FAMILY HISTORY OF CAD: Yes SOCIAL HISTORY: Social History Tobacco Use Smoking status: Former Packs/day: 0.70 Years: 4.00 Additional pack years: 0.00 Total pack years: 2.80 Types: Cigarettes Quit date: 04/28/1990 Years since quittin.6 Smokeless tobacco: Never Substance Use Topics Alcohol use: No Drug use: No SOCIAL HISTORY OF IVDU: No SOCIAL HISTORY OF Smoking: Yes SOCIAL HISTORY OF Alcohol Dependency: No MEDICATIONS: Prior to Admission Medications: potassium chloride SR (MICRO-K) 8 mEq cpERTake 1 capsule by mouth once daily.Disp: 30 capsuleRfl: 1 hydrALAZINE (APRESOLINE) 25 mg tabletTake 1 tablet by mouth two times a day.Disp: 180 tabletRfl: 0 amiodarone (PACERONE) 200 mg tabletTake 0.5 tablets by mouth once daily.Disp: Rfl: 0 furosemide (LASIX) 20 mg tabletTake 1 tablet by mouth once daily.Disp: 30 tabletRfl: 0 ELIQUIS 5 mg tab(s)Take 1 tablet by mouth every 12 hours.Disp: Rfl: isosorbide mononitrate ER (IMDUR) 30 mg 24 hr tabletTake 30 mg by mouth.Disp: Rfl: liothyronine (CYTOMEL) 5 mcg tabletTake 1 tablet by mouth every afternoon.Disp: Rfl: escitalopram oxalate (LEXAPRO) 10 mg tabletTake 1 tablet by mouth every afternoon.Disp: Rfl: pantoprazole DR (PROTONIX) 40 mg tabletTake 40 mg by mouth once daily.Disp: Rfl: atorvastatin (LIPITOR) 40 mg tabletTake 40 mg by mouth once daily.Disp: Rfl: krill oil 500 mg capDisp: Rfl: (Patient not taking: Reported on 11/24/2023) vit A/vit C/vit E/zinc/copper (PRESERVISION AREDS O (more content not included)... Normal [facility] Comprehensive metabolic 2000 panelon 11-26-2023 Albumin [Mass/Vol] 3.7 g/dL Low 3.9-4.9 [facility] Comment on above: Order Comment: Speci men Type: BLOOD SPECIMEN [facility] Address: [address] [place] [address] Result Comment: Resu lt rechecked. Performed By: #### 3 4528-0, PTTAC #### [facility] CLIA [id number] [address] [place] [address] [place] ALP [Catalytic activity/Vol] 85 U/L Normal 34-123 [facility] Comment on above: Order Comment: Speci men Type: BLOOD SPECIMEN [facility] Address: [address] [place] [address] Performed By: #### 3 4528-0, PTTAC #### [facility] CLIA [id number] [address] [place] [address] [place] ALT [Catalytic activity/Vol] 10 U/L Normal 7-38 [facility] Comment on above: Order Comment: Speci men Type: BLOOD SPECIMEN [facility] Address: [address] [place] [address] Performed By: #### 3 4528-0, PTTAC #### [facility] CLIA [id number] [address] [place] [address] [place] Anion gap [Moles/Vol] 11 mmol/L Normal 9-18 [facility] Comment on above: Order Comment: Speci men Type: BLOOD SPECIMEN [facility] Address: [address] [place] [address] Performed By: #### 3 4528-0, PTTAC #### [facility] CLIA [id number] [address] [place] [address] [place] AST [Catalytic activity/Vol] 12 U/L Low 13-35 [facility] Comment on above: Order Comment: Speci men Type: BLOOD SPECIMEN [facility] Address: [address] [place] [address] Performed By: #### 3 4528-0, PTTAC #### [facility] CLIA [id number] [address] [place] [address] [place] Bilirubin [Mass/Vol] 0.8 mg/dL Normal 0.2-1.3 [facility] Comment on above: Order Comment: Speci men Type: BLOOD SPECIMEN [facility] Address: [address] [place] [address] Performed By: #### 3 4528-0, PTTAC #### [facility] CLIA [id number] [address] [place] [address] [place] Calcium [Mass/Vol] 9.4 mg/dL Normal 8.5-10.2 [facility] Comment on above: Order Comment: Speci men Type: BLOOD SPECIMEN [facility] Address: [address] [place] [address] Performed By: #### 3 4528-0, PTTAC #### [facility] CLIA [id number] [address] [place] [address] [place] Chloride [Moles/Vol] 105 mmol/L Normal 97-105 [facility] Comment on above: Order Comment: Speci men Type: BLOOD SPECIMEN [facility] Address: [address] [place] [address] Performed By: #### 3 4528-0, PTTAC #### [facility] CLIA [id number] [address] [place] [address] [place] CO2 [Moles/Vol] 23 mmol/L Normal 22-30 [facility] Comment on above: Order Comment: Speci men Type: BLOOD SPECIMEN [facility] Address: [address] [place] [address] Performed By: #### 3 4528-0, PTTAC #### [facility] CLIA [id number] [address] [place] [address] [place] Creatinine [Mass/Vol] 1.62 mg/dL High 0.58-0.96 [facility] Comment on above: Order Comment: Speci men Type: BLOOD SPECIMEN [facility] Address: [address] [place] [address] Performed By: #### 3 4528-0, PTTAC #### [facility] CLIA [id number] [address] [place] [address] [place] Creatinine and Glomerular filtration rate.predicted panel (S/P/Bld) 33 mL/min/1.73m??? Low >=60 [facility] Comment on above: Order Comment: Speci men Type: BLOOD SPECIMEN [facility] Address: [address] [place] [address] Result Comment: Amy mated Glomerular Filtration Rate [...] accurately reflect actual GFR. Performed By: #### 3 4528-0, PTTAC #### [facility] CLIA [id number] [address] [place] [address] [place] Glucose [Mass/Vol] 100 mg/dL High 74-99 [facility] Comment on above: Order Comment: Speci men Type: BLOOD SPECIMEN [facility] Address: [address] [place] [address] Result Comment: The [place] [employer] (ADA) provides guidance for cutoff [...] Standards of Medical Care in Diabetes 2016, [place] [employer]. Diabetes Care. 2016.39(Suppl 1). Performed By: #### 3 4528-0, PTTAC #### [facility] CLIA [id number] [address] [place] [address] [place] Potassium [Moles/Vol] 4.0 mmol/L Normal 3.7-5.1 [facility] Comment on above: Order Comment: Speci men Type: BLOOD SPECIMEN [facility] Address: [address] [place] [address] Performed By: #### 3 4528-0, PTTAC #### [facility] CLIA [id number] [address] [place] [address] [place] Protein [Mass/Vol] 6.0 g/dL Low 6.3-8.0 [facility] Comment on above: Order Comment: Speci men Type: BLOOD SPECIMEN Ordering Facility: [facility] Address: [address] [place] [address] Performed By: #### 3 4528-0, PTTAC #### [facility] CLIA [id number] [address] [place] [address] [place] Sodium [Moles/Vol] 139 mmol/L Normal 136-144 [facility] Comment on above: Order Comment: Speci men Type: BLOOD SPECIMEN Ordering Facility: [facility] Address: [address] [place] [address] Performed By: #### 3 4528-0, PTTAC #### [facility] CLIA [id number] [address] [place] [address] [place] Urea nitrogen [Mass/Vol] 20 mg/dL Normal 7-21 [facility] Comment on above: Order Comment: Speci men Type: BLOOD SPECIMEN Ordering Facility: [facility] Address: [address] [place] [address] Performed By: #### 3 4528-0, PTTAC #### [facility] CLIA [id number] [address] [place] [address] [place] Albumin [Mass/Vol] 5.2 g/dL High 3.9-4.9 [facility] Comment on above: Order Comment: Speci men Type: BLOOD SPECIMENOrdering Facility: [facility] Address: [address] [place] [address] Performed By: #### 5 0190-8, 2276-4, 47852-5, 42674-9, 34644-9 ####[facility] [id number] [place] [address] [place] ALP [Catalytic activity/Vol] 94 U/L Normal 34-123 [facility] Comment on above: Order Comment: Speci men Type: BLOOD SPECIMENOrdering Facility: [facility] Address: [address] [place] [address] Performed By: #### 5 0190-8, 2276-4, 75054-4, 43700-3, 30005-4 ####[facility] [id number] [place] [id number] [place] ALT [Catalytic activity/Vol] 10 U/L Normal 7-38 [facility] Comment on above: Order Comment: Speci men Type: BLOOD SPECIMENOrdering Facility: [facility] Address: [address] [place] [address] Performed By: #### 5 0190-8, 2276-4, 59666-4, 75289-7, 28738-6 ####[facility]IA [id number] [place] [address] [place] Anion gap [Moles/Vol] 16 mmol/L Normal 9-18 [facility] Comment on above: Order Comment: Speci men Type: BLOOD SPECIMENOrdering Facility: [facility] Address: [address] [place] [address] Performed By: #### 5 0190-8, 2276-4, 00737-8, 40795-6, 35472-3 ####[facility]IA [id number] [place] [address] [place] AST [Catalytic activity/Vol] 13 U/L Normal 13-35 [facility] Comment on above: Order Comment: Speci men Type: BLOOD SPECIMENOrdering Facility: [facility] Address: [address] [place] [address] Performed By: #### 5 0190-8, 2276-4, 71556-8, 96403-7, 85554-9 ####[facility]IA [id number] [place] [id number] [place] Bilirubin [Mass/Vol] 0.7 mg/dL Normal 0.2-1.3 [facility] Comment on above: Order Comment: Speci men Type: BLOOD SPECIMENOrdering Facility: [facility] Address: [address] [place] [address] Performed By: #### 5 0190-8, 2276-4, 60762-0, 04619-4, 50912-2 ####[facility] [id number] [facility] [address] [address] [place] Calcium [Mass/Vol] 9.8 mg/dL Normal 8.5-10.2 [facility] Comment on above: Order Comment: Speci men Type: BLOOD SPECIMENOrdering Facility: [facility] Address: [address] [place], [place] [address] Performed By: #### 5 0190-8, 2276-4, 44590-8, 47280-8, 76180-6 ####[facility] [id number] [place] [id number] [place] Chloride [Moles/Vol] 100 mmol/L Normal 97-105 [facility] Comment on above: Order Comment: Speci men Type: BLOOD SPECIMENOrdering Facility: [facility] Address: [address] [place] [address] Performed By: #### 5 0190-8, 2276-4, 66174-1, 64143-8, 82960-2 ####[facility] [id number] [place] [id number] [place] CO2 [Moles/Vol] 23 mmol/L Normal 22-30 [facility] Comment on above: Order Comment: Speci men Type: BLOOD SPECIMENOrdering Facility: [facility] Address: [address] [place], [place] [address] Performed By: #### 5 0190-8, 2276-4, 34367-1, 86432-3, 45087-2 ####[facility] [id number] [place] [id number] [place] Creatinine [Mass/Vol] 1.75 mg/dL High 0.58-0.96 [facility] Comment on above: Order Comment: Speci men Type: BLOOD SPECIMENOrdering Facility: [facility] Address: [address] [place] [address] Performed By: #### 5 0190-8, 6-4, 24977-9, 96870-6, 44013-9 ####[facility] [id number] [place] [id number] [place] Creatinine and Glomerular filtration rate.predicted panel (S/P/Bld) 30 mL/min/1.73m??? Low >=60 [facility] Comment on above: Order Comment: [place]remayne bill Type: BLOOD SPECIMENOrdering Facility: [facility] Address: [address] [place] [address] Result Comment: Amy mated Glomerular Filtration Rate [...] accurately reflect actual GFR. Performed By: #### 5 0190-8, 2276-4, 29934-6, 70960-4, 07747-5 ####[facility]IA [id number] [place] [id number] [place] Glucose [Mass/Vol] 97 mg/dL Normal 74-99 [facility] Comment on above: Order Comment: [place]rem[place] bill Type: BLOOD SPECIMENOrdering Facility: [facility] Address: [address] [place] [address] Result Comment: The [place] Diabetes Association (ADA) provides guidance for cutoff [...] Standards of Medical Care in Diabetes 2016, [place] [employer]. Diabetes Care. 2016.39(Suppl 1). Performed By: #### 5 0190-8, 6-4, 46156-6, 01558-9, 74213-4 ####[facility]IA [id number] [address] [address] [place] Potassium [Moles/Vol] 3.9 mmol/L Normal 3.7-5.1 [facility] Comment on above: Order Comment: Speci men Type: BLOOD SPECIMENOrdering Facility: [facility] Address: [address] [place] [address] Performed By: #### 5 0190-8, 6-4, 61859-0, 88719-3, 66440-9 ####[facility]IA [id number] [place] [address] [place] Protein [Mass/Vol] 6.5 g/dL Normal 6.3-8.0 [facility] Comment on above: Order Comment: Speci men Type: BLOOD SPECIMENOrdering Facility: [facility] Address: [address] [place] [address] Performed By: #### 5 0190-8, 6-4, 06373-7, 23952-4, 98954-2 ####[facility]IA [id number] [place] [id number] [place] Sodium [Moles/Vol] 139 mmol/L Normal 136-144 [facility] Comment on above: Order Comment: Speci men Type: BLOOD SPECIMENOrdering Facility: [facility] Address: [address] [place], [place] [address] Performed By: #### 5 0190-8, 2276-4, 82134-3, 47089-3, 09797-8 ####[facility] [id number] [place] [id number] [place] Urea nitrogen [Mass/Vol] 20 mg/dL Normal 7-21 [facility] Comment on above: Order Comment: Speci men Type: BLOOD SPECIMENOrdering Facility: [facility] Address: [address] [place], [place] [address] Performed By: #### 5 0190-8, 2276-4, 51081-8, 28710-8, 69242-4 ####[facility]IA [id number] [place] [address] [place] ECG COMPLETEon 11-26-2023 ECG COMPLETE Ventricular Rate : 6 0 BPM Atrial Rate : 60 BPM P-R Interval : 160 ms QRS Duration : 82 ms Q-T Interval : 472 ms QTC Calculation(Bazett) : 472 ms Calculated P [place] : 58 degrees Calculated R [place] : 58 degrees Calculated T [place] : 50 degrees NORMAL SINUS RHYTHM NORMAL ECG Confirmed by ANA ALVAREZ MD () on 11/28/2023 2:52:13 PM NAME : CECE HUBBARD PID : [id number] : 1945 Gender : Female Race : ORD : [id number] Procedure Date : Nov 26 2023 03:03:15 Edit Date : Nov 28 2023 14:54:23 Diagnosis: NORMAL SINUS RHYTHM NORMAL ECG Confirmed by ANA ALVAREZ MD (22) on 11/28/2023 2:52:13 PM Test Reason : Arrhythmia Location : 373 : J73 j73-19 Overread By : ANA ALVAREZ MD Edited By : ANA ALVAREZ MD Referred By : BECCA SILVERIO Acquired by : MARIO REESE Normal [facility] Ferritin [Mass/Vol] 119.0 ng/mL Normal 14.7-205.1 [facility] Comment on above: Order Comment: Speci men Type: BLOOD SPECIMENOrdering Facility: [facility] Address: [address] [place], [place] [address] Performed By: #### 5 0190-8, 2276-4, 14487-6, 81388-4, 03930-6 ####[facility] [id number] [place] [id number] [place] HISTORY PHYSICALon HISTORY PHYSICAL HNO ID: [id number] Author: JOEL PARRISH MD Service: Cardiovascular Medicine Author Type: Physician Type: H&P Filed: 11/26/2023 15:18 Note Text: [facility] HISTORY AND PHYSICIAL Cece Hubbard [id number] Primary Care Physician: Primary 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 Helper: Admit Source: Admit Date: 11/25/2023 LOS: 0 PRIMARY SERVICE: Cardiology: Imaging ATTENDING PHYSICIAN: Joel Parrish CHIEF COMPLAINT: HPI: This is a 78 year old female with history of HTN, CAD status post PCI to LAD and RCA 2020, HFpEF, MR, AR hypothyroidism who presented to OSH with worsening dyspnea on on exertion. The patient is planned to undergo surgery on 12/05/2023 and felt that she would be unable to undergo surgery by 12/05/2023 safely (with Dr. Gaetano Shaw). The patient reported that she was told that the surgery had been moved up. She reported that she had presented to the [facility] with dyspnea on 11/24/2023 that was intractable. She reported that she was told by her numerical control machine machinist Dr. Covarrubias who recommended transfer to [facility] for expedited CABG with possible MVR. LHC at OSH demonstrated 70% ISR of proximal RCA. The patient reported chronic dyspnea on exertion and difficulty completing ADLs. She reported that she is able to lie flat. Sleeps with 1 pillow at night. Said symptoms started for years but worse over the past few months. Denied weight gain, in fact has lost some. Recent LHC in 10/2023 was complicated by RIGHT femoral pseudoaneurysm that has intervally gone away. Currently resides in [place], [place] with Elio. Retired but used to work at [employer] but cannot get me out of my [employer] ticket. Denied smoking/street drugs/EtOH use. PAST MEDICAL HISTORY: PAST MEDICAL HISTORY Diagnosis Date Aortic insufficiency CAD (coronary artery disease) 04/24/2022 Chronic kidney disease Depression GERD (gastroesophageal reflux disease) HTN (hypertension) Hyperlipidemia Hypothyroidism Knee pain Mitral regurgitation Pseudophakia of both eyes Seasonal allergic rhinitis PAST SURGICAL HISTORY: PAST SURGICAL HISTORY Procedure Laterality Date ARTHRP KNE CONDYLEANDPLATU MEDIALANDLAT COMPARTMENTS 05/11/2012 Knee replacement, total right PAST SURGICAL HISTORY OF 08/11/2010 right knee partial replacement PAST SURGICAL HISTORY OF bilat foot surgery for plantar faciitis PAST SURGICAL HISTORY OF arthroscopy bilat knees POST-CATARACT LASER SURGERY Bilateral 10/10/2022 REMV CATARACT EXTRACAP,INSERT LENS Right 05/15/2022 REMV CATARACT EXTRACAP,INSERT LENS Left 05/01/2022 FAMILY HISTORY: FAMILY HISTORY Problem Relation Age of Onset Coronary Artery Disease Father Cancer Mother SOCIAL HISTORY: Social History Tobacco Use Smoking status: Former Packs/day: 0.70 Years: 4.00 Additional pack years: 0.00 Total pack years: 2.80 Types: Cigarettes Quit date: 04/28/1990 Years since quittin.6 Smokeless tobacco: Former Substance Use Topics Alcohol use: No Drug use: No MEDICATIONS: Prior to Admission Medications: potassium chloride SR (MICRO-K) 8 mEq cpERTake 1 capsule by mouth once daily.Disp: 30 capsuleRfl: 1 hydrALAZINE (APRESOLINE) 25 mg tabletTake 1 tablet by mouth two times a day.Disp: 180 tabletRfl: 0 amiodarone (PACERONE) 200 mg tabletTake 0.5 tablets by mouth once daily.Disp: Rfl: 0 furosemide (LASIX) 20 mg tabletTake 1 tablet by mouth once daily.Disp: 30 tabletRfl: 0 ELIQUIS 5 mg tab(s)Take 1 tablet by mouth every 12 hours.Disp: Rfl: isosorbide mononitrate ER (IMDUR) 30 mg 24 hr tabletTake 30 mg by mouth.Disp: Rfl: liothyronine (CYTOMEL) 5 mcg tabletTake 1 tablet by mouth every afternoon.Disp: Rfl: escitalopram oxalate (LEXAPRO) 10 mg tabletTake 1 tablet by mouth every afternoon.Disp: Rfl: pantoprazole DR (PROTONIX) 40 mg tabletTake 40 mg by mouth once daily.Disp: Rfl: atorvastatin (LIPITOR) 40 mg tabletTake 40 mg by mouth once daily.Disp: Rfl: krill oil 500 mg capDisp: Rfl: (Patient not taking: Reported on 11/24/2023) vit A/vit C/vit E/zinc/copper (PRESERVISION AREDS ORAL)Disp: Rfl: (Patient not taking: Reported on 11/24/2023) traMADol (ULTRAM) 50 mg tabletTake 50 mg by mouth three times daily as needed.Disp: Rfl: (Patient not taking: Reported on 11/24/2023) aspirin 81 mg capTake by mouth.Disp: Rfl: Multivitamin capsuleTake 1 capsule by mouth once daily. Disp: Rfl: (Patient not taking: Reported on 11/24/2023) Current Facility-Administered Medications Medication Dose Route Frequency heparin iv infusion 25,000 units in NaCl 0.45% 250 mL LOW DOSE/ACS NOMOGRAM 0-3,000 Units/hr INTRAVENOUS CONTINUOUS And heparin RATE CHANGE bolus 1,000-4,000 Units for subtherapeutic PTTAC results 1,000-4,000 Units INTRAVENOUS PRN heparin nomogram INITIAL BOLUS - LOW DOSE/ACS 60 units/kg/dose INTRAVENOUS ONCE (heparin bolus) sodium chloride 0.9 % (flush) 2-10 mL (BD POSIFLUSH) 2-10 mL INTRAVENOUS DIRECTED PRN And perflutren lipid microsphe (more content not included)... Normal [facility] Iron and Iron binding capaci ty panelon 11-26-2023 Iron [Mass/Vol] 71 ug/dL Normal 41-186 [facility] Comment on above: Order Comment: Speci men Type: BLOOD SPECIMENOrdering Facility: [facility] Address: [address] [place] [address] Performed By: #### 5 0190-8, 2276-4, 57847-7, 40254-3, 55769-7 ####[facility]IA [id number] [place] [address] [place] Iron binding capacity [Mass/Vol] 321 ug/dL Normal 232-386 [facility] Comment on above: Order Comment: Speci men Type: BLOOD SPECIMENOrdering Facility: [facility] Address: [address] [place] [address] Performed By: #### 5 0190-8, 2276-4, 86167-5, 94386-7, 78279-6 ####[facility]IA [id number] [place] [address] [place] Iron/TIBC [Molar ratio] 22.1 % Normal 15.0-57.0 [facility] Comment on above: Order Comment: Speci men Type: BLOOD SPECIMENOrdering Facility: [facility] Address: [address] [place] [address] Performed By: #### 5 0190-8, 6-4, 75097-5, 46355-5, 20796-3 ####[facility]IA [id number] [place] [address] [place] Magnesium SerPl-ncon 11-25 Magnesium [Mass/Vol] 2.2 mg/dL Normal 1.7-2.3 [facility] Comment on above: Order Comment: Speci men Type: BLOOD SPECIMEN Order[facility] Facility: [facility] Address: [address] [place] [address] Performed By: #### 3 4528-0, PTTAC #### [facility] CLIA [id number] [address] [place] [address] [place] Magnesium [Mass/Vol] 2.2 mg/dL Normal 1.7-2.3 [facility] Comment on above: Order Comment: Speci men Type: BLOOD SPECIMENOrdering Facility: [facility] Address: [address] [place] [address] Performed By: #### 5 0190-8, 6-4, 06400-7, 09952-8, 63579-6 ####[facility] [id number] [place] [address] [place] NT-proBNP SerPl-ncon 11-25 Natriuretic peptide.B prohormone N-Terminal [Mass/Vol] 177 pg/mL Normal <450 [facility] Comment on above: Order Comment: Speci men Type: BLOOD SPECIMENOrdering Facility: [facility] Address: [address] [place] [address] Performed By: #### 5 0190-8, 6-4, 31659-5, 59023-1, 53028-2 ####[facility]IA [id number] [place] [address] [place] NUTRITIONon 11-26-2023 NUTRITION HNO ID: [id number] Author: REBEKA GARCIA RD Service: Nutrition Therapy Author Type: Registered Dietitian Type: Nutrition Filed: 11/26/2023 14:50 Note Text: NUTRITION THERAPY INITIAL ASSESSMENT SERVICE DATE: 11/26/2023 SERVICE TIME: 1:05 PM Nutrition Assessment: Recommended Malnutrition Diagnosis: No Malnutrition Identified Nutrition Diagnosis: Problem: Suboptimal oral intake Related to: Inability to consume sufficient nutrients As evidenced by: Nausea, Food/nutrition related history, Patient/family self-report, Anorexia Estimated kilocalorie needs: 5480-1736 Calorie Calculation Method: 25-30 kcals/kg, [place] Body Weight Estimated protein needs (grams): 65-82 Grams protein determined by: 1.2 - 1.5 g/kg, [place] body weight Care Plan: Continue current diet heart healthy 2 gram sodium Supplements: Ensure Max (BID) Medications: Laxative, Stool softener (as needed) Monitor and Evaluation: Meet greater than 75% of estimated needs, Monitor fluid/electrolyte balance, Monitor labs, I/Os, vital signs, weight, Monitor bowel function Discharge Recommendations: Diet;Oral Supplements Diet: heart healthy low sodium Oral Supplements: of choice as needed to help meet >75% estimated calorie and protein needs RD assessment for MST-2 HPI: 78 year old female with PMH significant for HTN, CAD, CHF, MR, AR, hypothyroidism. Admitted for NSTEMI, worsening HOLLY, pending possible CABG and MVR. Intake History: Nutrition Intake Prior to Admission: Less than 75% estimated energy needs greater than 7 days -patient reports decreased appetite over the past 2-3 weeks due to medications -reports eating 3 meals daily but only consuming 50% of meals -hasn't tried protein supplements but will in to try chocolate supplements while admitted -endorses unintentional wt loss but has been on diuretics recently -discussed importance of adequate po intake and encouraged protein food sources/supplements Diet Orders (From admission, onward) Start Ordered 11/26/23944 DIET HEART HEALTHY START NOW Question: Heart Healthy Answer: 4 GM SODIUM (LOW SAT FAT) 11/26/23 0942 Anthropometrics: Weight: 81.5 kg (179 lb 10.8 oz) Dosing Weight: 54.5 kg (120 lb 2.4 oz) Usual Weight: 84.4 kg (186 lb) 1 month ago Usual Weight Obtained From: Chart Review Body mass index is 30.84 kg/m?. Weight change percentage over time: weight loss of 3.4% x1 month, note recent use of diuretics Weight Change: Not clinically signficant weight loss Physical Exam: Subcutaneous fat loss: No fat loss Muscle loss: No muscle loss Potential micronutrient deficiency: No deficiency identified Edema/Ascites: No edema, No ascites GI Symptoms: Anorexia, Diarrhea Stool Amount: WNL Functional Status: Not related to malnutrition status Potential Signs of Inflammation: Chronic condition, Hypoalbuminemia MNT Billing: $ Initial Assessment: 1-15 minutes SIGNATURE: Rbeeka Garcia RD PATIENT NAME: Cece Hubbard DATE: November 26, 2023 TIME: 2:43 PM Normal [facility] PT panel Coag (PPP)on 2023 INR Coag (PPP) [Relative time] 1.1 {INR} Normal 0.9-1.3 [facility] Comment on above: Order Comment: Speci men Type: BLOOD SPECIMEN [facility] Address: [address] [place] [address] Result Comment: Janeth min K Antagonist (VKA) Therapeutic Range: INR 2 to 3 (Target INR of 2.5) Note: For patients treated with VKA drugs, such as warfarin, the [place] [employer] 2012 Guideline recommends [...] to 3.5 (target INR of 3). Matteo GH, et al. Chest 2012, 141:7S-47S Mary WILLIAMSON et al. [facility] 2017, 70: 252-289 Performed By: #### 3 4528-0, PTTAC #### [facility] CLIA [id number] [address] [place] [address] [place] PT Coag (PPP) [Time] 11.4 s Normal 9.7-13.0 [facility] Comment on above: Order Comment: Speci men Type: BLOOD SPECIMEN [facility] Address: [address] [place] [address] Performed By: #### 3 4528-0, PTTAC #### [facility] CLIA [id number] [address] [place] [address] [place] INR Coag (PPP) [Relative time] 1.1 {INR} Normal 0.9-1.3 [facility] Comment on above: Order Comment: Speci men Type: BLOOD SPECIMENOrdering Facility: [facility] Address: [address] [place] [address] Result Comment: Janeth min K Antagonist (VKA) Therapeutic Range: INR 2 to 3 (Target INR of 2.5) Note: For patients treated with VKA drugs, such as warfarin, the [place] [employer] 2012 Guideline recommends [...] Chest 2012, 141:7S-47S Mary RA, et al. JACC 2017, 70: 252-289 Performed By: #### 3 4528-0, 42225-6 ####[facility]IA [id number] [place] [address] [place] PT Coag (PPP) [Time] 11.7 s Normal 9.7-13.0 [facility] Comment on above: Order Comment: Speci men Type: BLOOD SPECIMENOrdering Facility: [facility] Address: [address] [place] [address] Performed By: #### 3 4528-0, 88587-7 ####[facility] LABCLIA [id number] [place] [address] [place] PTT, ANTICOAGULANT THERAPYon 11-26-2023 aPTT Coag (PPP) [Time] 61.1 s High 23.0-32.4 [facility] Comment on above: Order Comment: Speci men Type: BLOOD SPECIMENOrdering Facility: [facility] Address: [address] [place] [address] Performed By: #### P TTAC ####[facility] LAB[facility]IA [id number] [place] [address] [place] aPTT Coag (PPP) [Time] 36.4 s High 23.0-32.4 [facility] Comment on above: Order Comment: Speci men Type: BLOOD SPECIMEN [facility] Address: [address] [place] [address] Result Comment: Inte rpret with caution. Sample centrifuged greater than 1 hour from collection time. According to Clinical and Laboratory Standards [place] guidelines, results could be falsely decreased due to heparin neutralization by in vitro release of platelet factor 4. Suggest correlation with clinical findings and redraw if indicated. Performed By: #### 3 4528-0, PTTAC #### [facility] CLIA [id number] [address] [place] [address] [place] aPTT Coag (PPP) [Time] 66.6 s High 23.0-32.4 [facility] Comment on above: Order Comment: Speci men Type: BLOOD SPECIMEN [facility] Address: [address] [place] [address] Performed By: #### 3 4528-0, PTTAC #### [facility] CLIA [id number] [address] [place] [address] [place] aPTT Coag (PPP) [Time] 49.0 s High 23.0-32.4 [facility] Comment on above: Order Comment: Speci men Type: BLOOD SPECIMEN [facility] Address: [address] [place] [address] Performed By: #### 3 4528-0, PTTAC #### [facility] CLIA [id number] [address] [place] [address] [address] [place] THERAPY NTon 11-26-2023 THERAPY NT HNO ID: [id number] Author: ALAN MEZA PT, DPT Service: Physical Therapy Author Type: Physical Therapist Type: Therapy (PT/OT/Speech/Resp) Filed: 11/26/2023 08:17 Note Text: PHYSICAL THERAPY COMMUNICATION SERVICE DATE: 11/26/2023 ROOM: [place] [address] Physical therapy consult received. Chart reviewed. No acute skilled physical therapy needs identified. Pt with a documented Nursing 6 Clicks score of 23-24 indicating that the patient is supervised or independent with all mobility. Will discontinue Physical Therapy Consult at this time. Please re-consult if the patient has a change of condition and develops mobility deficits that require skilled therapy, and add a comment in the new order as to why the patient needs seen. Thank you. SIGNATURE: Alan Meza PT, DPT PATIENT NAME: Cece Hubbard DATE: November 26, 2023 TIME: 8:17 AM Normal [facility] THERAPY NT HNO ID: [id number] Author: ALAN MEZA PT, DPT Service: Occupational Therapy Author Type: Physical Therapist Type: Therapy (PT/OT/Speech/Resp) Filed: 11/26/2023 08:17 Note Text: THERAPY COMMUNICATION SERVICE DATE: 11/26/2023 ROOM: [place] [address] Occupational therapy consult received. Chart reviewed. No acute skilled occupational therapy needs identified. Pt with a documented Nursing 6 Clicks score of 23 or 24 indicating that the patient is supervised or independent with all mobility. No acute cognitive, vision, or UE deficits identified in chart. Will discontinue Occupational Therapy Consult at this time. Please re-consult if the patient has a change of condition and develops mobility, ADL or cognitive deficits that require skilled therapy, and add a comment in the new order as to why the patient needs seen. Thank you. SIGNATURE: Alan Meza, PT, DPT PATIENT NAME: Cece Hubbard DATE: November 26, 2023 TIME: 8:17 AM Normal [facility] TOXICOLOGY SCREEN, ROUTINE U RINEon 11-26-2023 Amphetamines Confirm (U) [Mass/Vol] Negative Normal Negative [facility] Comment on above: Order Comment: Speci men Type: URINE SPECIMENOrdering Facility: [facility] Address: [address] [place] [address] Result Comment: Cuto ff threshold at 1000 ng/mL. Performed By: #### U TOX2 ####[facility] LAB[facility] [id number] [place] [address] [place] BARBITURATES, URINE Negative Normal Negative [facility] Comment on above: Order Comment: Speci men Type: URINE SPECIMENOrdering Facility: [facility] Address: [address] [place] [address] Result Comment: Cuto ff threshold at 200 ng/mL. Performed By: #### U TOX2 ####[facility] [id number] [place] [address] [place] BENZODIAZEPINES, UR Negative Normal Negative [facility] Comment on above: Order Comment: Speci men Type: URINE SPECIMENOrdering Facility: [facility] Address: [address] [place] [address] Result Comment: Cuto ff threshold at 200 ng/mL. Performed By: #### U TOX2 ####[facility] LABCL[facility] [id number] [place] [address] [place] Cannabinoids Screen Ql (U) Negative Normal Negative [facility] Comment on above: Order Comment: Speci men Type: URINE SPECIMENOrdering Facility: [facility] Address: [address] [place] [address] Result Comment: Cuto ff threshold at 50 ng/mL. Performed By: #### U TOX2 ####[facility]IA [id number] [place] [address] [place] Cocaine Ql (U) Negative Normal Negative [facility] Comment on above: Order Comment: Speci men Type: URINE SPECIMENOrdering Facility: [facility] Address: [address] [place] [address] Result Comment: Cuto ff threshold at 300 ng/mL. Performed By: #### U TOX2 ####[facility]CLIA [id number] [place] [address] [place] Ethanol (U) [Mass/Vol] <11 Normal <11 Cl [facility] Comment on above: Order Comment: Speci men Type: URINE SPECIMENOrdering Facility: [facility] Address: [address] [place] [address] Performed By: #### U TOX2 ####[facility] LABCLIA [id number] [place] [address] [place] Opiates Screen Ql (U) Negative Normal Negative [facility] Comment on above: Order Comment: Speci men Type: URINE SPECIMENOrdering Facility: [facility] Address: [address] [place] [address] Result Comment: Cuto ff threshold at 300 ng/mL. Performed By: #### U TOX2 ####[facility] LABCLIA [id number] [place] [address] [place] oxyCODONE cutoff Screen (U) [Mass/Vol] Negative Normal Negative [facility] Comment on above: Order Comment: Speci men Type: URINE SPECIMENOrdering Facility: [facility] Address: [address] [place] [address] Result Comment: Cuto ff threshold at 100 ng/mL. Performed By: #### U TOX2 ####[facility] LABCLIA [id number] [place] [address] [place] Phencyclidine Ql (U) Negative Normal Negative [facility] Comment on above: Order Comment: Speci men Type: URINE SPECIMENOrdering Facility: [facility] Address: [address] [place] [address] Result Comment: Cuto ff threshold at 25 ng/mL. Performed By: #### U TOX2 ####[facility] LABCLIA [id number] [place] [address] [place] TYPE + SCREENon 11-26-2023 ABO O Normal [facility] Comment on above: Order Comment: Speci men Type: BLOOD SPECIMENOrdering Facility: [facility] Address: [address] [place] [address] Performed By: #### T SCR ####[facility] BLOOD BANKCLIA [id number] [place] [address] [place] HISTORICAL AB SCR STATUS Negative Normal [facility] Comment on above: Order Comment: Speci men Type: BLOOD SPECIMENOrdering Facility: [facility] Address: [address] [place] [address] Performed By: #### T SCR ####[facility] BLOOD BANKCLIA [id number] [place] [address] [place] Rh Nom (Bld) Negative Normal [facility] Comment on above: Order Comment: Speci men Type: BLOOD SPECIMENOrdering Facility: [facility] Address: [address] [place] [address] Performed By: #### T SCR ####[facility] BANKCLIA [id number] [place] [address] [place] TYPE AND SCREEN EXPIRATION 11/29/2023 23:59 Normal [facility] Comment on above: Order Comment: Speci men Type: BLOOD SPECIMENOrdering Facility: [facility] Address: [address] [place] [address] Performed By: #### T SCR ####[facility] BANKCLIA [id number] [place] [address] [place] URINALYSIS, DIPSTICK ONLYon 11-26-2023 Bilirubin Ql (U) Negative Normal Negative [facility] Comment on above: Order Comment: Speci men Type: BLOOD SPECIMEN [facility] Address: [address] [place] [address] Performed By: #### 3 4528-0, PTTAC #### [facility] CLIA [id number] [address] [place] [address] [place] Clarity (Unsp spec) Clear Normal Clear [facility] Comment on above: Order Comment: Speci men Type: BLOOD SPECIMEN [facility] Address: [address] [place] [address] Performed By: #### 3 4528-0, PTTAC #### [facility] CLIA [id number] [address] [place] [address] [place] Color (U) Yellow Normal Yellow [facility] Comment on above: Order Comment: Speci men Type: BLOOD SPECIMEN [facility] Address: [address] [place] [address] Performed By: #### 3 4528-0, PTTAC #### [facility] CLIA [id number] [address] [place] [address] [place] Glucose Test strip (U) [Mass/Vol] Negative Normal Negative [facility] Comment on above: Order Comment: Speci men Type: BLOOD SPECIMEN [facility] Address: [address] [place] [address] Performed By: #### 3 4528-0, PTTAC #### [facility] CLIA [id number] [address] [place] [address] [place] Hemoglobin Ql (U) Negative Normal Negative [facility] Comment on above: Order Comment: Speci men Type: BLOOD SPECIMEN [facility] Address: [address] [place], [place] [address] Performed By: #### 3 4528-0, PTTAC #### [facility] CLIA [id number] [address] [place] [address] [place] Ketones Ql (U) Negative Normal Negative [facility] Comment on above: Order Comment: Speci men Type: BLOOD SPECIMEN [facility] Address: [address] [place] [address] Performed By: #### 3 4528-0, PTTAC #### [facility] CLIA [id number] [address] [place] [address] [place] Leukocyte esterase Test strip Ql (U) 2+ Abnormal Negative [facility] Comment on above: Order Comment: Speci men Type: BLOOD SPECIMEN [facility] Address: [address] [place] [address] Performed By: #### 3 4528-0, PTTAC #### [facility] CLIA [id number] [address] [place] [address] [place] Nitrite Ql (U) Negative Normal Negative [facility] Comment on above: Order Comment: Speci men Type: BLOOD SPECIMEN [facility] Address: [address] [place] [address] Performed By: #### 3 4528-0, PTTAC #### [facility] CLIA [id number] [address] [place] [address] [place] pH (U) 6.0 [pH] Normal <8.5 [facility] Comment on above: Order Comment: Speci men Type: BLOOD SPECIMEN [facility] Address: [address] [place] [address] Performed By: #### 3 4528-0, PTTAC #### [facility] CLIA [id number] [address] [place] [address] [place] Protein (U) [Mass/Vol] Negative Normal Negative [facility] Comment on above: Order Comment: Speci men Type: BLOOD SPECIMEN [facility] Address: [address] [place] [address] Performed By: #### 3 4528-0, PTTAC #### [facility] CLIA [id number] [address] [place] [address] [place] Specific gravity (U) [Rel density] 1.010 Normal 1.005-1.03 0 [facility] Comment on above: Order Comment: Speci men Type: BLOOD SPECIMEN [facility] Address: [address] [place] [address] Performed By: #### 3 4528-0, PTTAC #### [facility] IA [id number] [address] [place] [address] [place] Urobilinogen Ql (U) 0.2 EU/dL Normal 0.2-1.0 EU/dL [facility] Comment on above: Order Comment: Speci men Type: BLOOD SPECIMEN [facility] Address: [address] [place] [address] Performed By: #### 3 4528-0, PTTAC #### [facility] CLIA [id number] [address] [place] [address] [place] US GROIN UNL VAS LABon 11-25 [facility] Non-Invasive Vascul ar Laboratory [facility] J35 Lower Extremity Arterial Duplex for Pseudoaneurysm Unilateral - Right Date of service/time: 11/26/2023 10:50:20 AM Name: CECE HUBBARD Date of : 1945 Age: 78 years Gender: F TECHNIQUE -------- An arterial duplex ultrasound examination was performed, including grayscale imaging and color Doppler and spectral Doppler examination of the below mentioned arteries. FINDINGS -------- RIGHT SIDE External iliac artery : PSV: 115 cm/s. EDV: 0 cm/s. Multiphasic waveform. Common femoral artery : PSV: 105 cm/s. EDV: 0 cm/s. Multiphasic waveform. Profunda femoral artery proximal : PSV: 47 cm/s. EDV: 0 cm/s. Multiphasic waveform. Superficial femoral artery proximal : PSV: 75 cm/s. EDV: 0 cm/s. Multiphasic waveform. External iliac vein: Doppler: normal flow. Compression: normal. Common femoral vein: Doppler: normal flow. Compression: normal. Femoral vein: Doppler: normal flow. Compression: normal. IMPRESSION RIGHT SIDE Negative for deep vein thrombosis, arteriovenous fistula and pseudoaneurysm. External iliac artery patent at distal . Common femoral artery patent . Profunda femoral artery patent at proximal . Superficial femoral artery patent at proximal . There appears to be 2 hematomas near the right groin. The first one is anterior to the common femoral vein. It measures approximately 1.6 x 2.9 x 1.8cm. The second one is at proximal thigh. It measures approximately 4.2 x 0.7 x 2.0cm. Technologist: Komal Hernandez T Ordering physician: JOEL PARRISH Interpreting physician: Kait Arciniega MD, RPVI Final CC [employer] [facility] : [id number] See Link below for Image Normal [facility] XR CHEST 1V FRONTAL PORTon 0 11-26-2023 XR CHEST 1V FRONTAL PORT * * *Final Report* * * DATE OF EXAM: Nov 26 2023 9:46AM JIX [id number] - XR CHEST 1V FRONTAL PORT / PROCEDURE REASON: Shortness of breath * * * * Physician Interpretation * * * * EXAMINATION: CHEST RADIOGRAPH (PORTABLE SINGLE VIEW AP) Exam Date/Time: 11/26/2023 9:46 AM Clinical History: Shortness of breath MQ: [id number] Comparison: 2 days prior RESULT: Lines, tubes, and devices: None. Lungs and pleura: Lower lung volume on the current exam with increase of partial atelectasis at bases. Prominence of the lung markings bilaterally could be due to crowded vessels given the low lung volume. Underlying mild interstitial edema or inflammation cannot be entirely excluded. There is blunting of the left CP angle which may represent tiny effusion or pleural thickening.. Cardiomediastinal silhouette: Normal size heart. Thoracic aorta is tortuous with atherosclerotic calcifications. Pulmonary vascular redistribution could be secondary to positioning or mild PVH. Other: . IMPRESSION: See result. Housing Management Representative: PSCB Transcribe Date/Time: Nov 26 2023 3:20P Dictated by : NICOLA FRANKLIN MD This examination was interpreted and the report reviewed and electronically signed by: NICOLA FRANKLIN MD on Nov 26 2023 3:21PM EST [id number] Normal [facility] aPTT PPPon 11-26-2023 aPTT Coag (PPP) [Time] 44.4 s High 23.0-32.4 [facility] Comment on above: Order Comment: Speci men Type: BLOOD SPECIMENOrdering Facility: [facility] Address: [address] [place] [address] Performed By: #### 3 4528-0, 31460-1 ####[facility] LABCLIA [id number] [place] [address] [place] Basic metabolic 2000 panelon 11-25-2023 Anion gap [Moles/Vol] 12 mmol/L Normal 9-18 [facility] Comment on above: Order Comment: Speci men Type: BLOOD SPECIMEN [facility] Address: [address] [place] [address] Performed By: #### 2 4321-2 #### [facility] CLIA [id number] [address] [place] [address] [place] Calcium [Mass/Vol] 9.7 mg/dL Normal 8.5-10.2 [facility] Comment on above: Order Comment: Speci men Type: BLOOD SPECIMEN [facility] Address: [address] [place] [address] Performed By: #### 2 4321-2 #### [facility] CLIA [id number] [address] [place] [address] [place] Chloride [Moles/Vol] 102 mmol/L Normal 97-105 [facility] Comment on above: Order Comment: Speci men Type: BLOOD SPECIMEN [facility] Address: [address] [place] [address] Performed By: #### 2 4321-2 #### [facility] CLIA [id number] [address] [place] [address] [place] CO2 [Moles/Vol] 23 mmol/L Normal 22-30 [facility] Comment on above: Order Comment: Speci men Type: BLOOD SPECIMEN [facility] Address: [address] [place] [address] Performed By: #### 2 4321-2 #### [facility] CLIA [id number] [address] [place] [address] [place] Creatinine [Mass/Vol] 1.67 mg/dL High 0.58-0.96 [facility] Comment on above: Order Comment: Speci men Type: BLOOD SPECIMEN [facility] Address: [address] [place] [address] Performed By: #### 2 4321-2 #### [facility] CLIA [id number] [address] [place] [address] [place] Creatinine and Glomerular filtration rate.predicted panel (S/P/Bld) 31 mL/min/1.73m??? Low >=60 [facility] Comment on above: Order Comment: Speci men Type: BLOOD SPECIMEN [facility] Address: [address] [place] [address] Result Comment: Amy mated Glomerular Filtration Rate [...] accurately reflect actual GFR. Performed By: #### 2 4321-2 #### [facility] CLIA [id number] [address] [place] [address] [place] Glucose [Mass/Vol] 108 mg/dL High 74-99 [facility] Comment on above: Order Comment: Tremayne bill Type: BLOOD SPECIMEN [facility] Address: [address] [place] [address] Result Comment: The [place] Diabetes Association (ADA) provides guidance for cutoff [...] Standards of Medical Care in Diabetes 2016, [place] [employer]. Diabetes Care. 2016.39(Suppl 1). Performed By: #### 2 4321-2 #### [facility] CLIA [id number] [address] [place] [address] [place] Potassium [Moles/Vol] 4.4 mmol/L Normal 3.7-5.1 [facility] Comment on above: Order Comment: Tremayne bill Type: BLOOD SPECIMEN [facility] Address: [address] [place] [address] Performed By: #### 2 4321-2 #### [facility] CLIA [id number] [address] [place] [address] [place] Sodium [Moles/Vol] 137 mmol/L Normal 136-144 [facility] Comment on above: Order Comment: Tremayne bill Type: BLOOD SPECIMEN [facility] Address: [address] [place] [address] Performed By: #### 2 4321-2 #### [facility] CLIA [id number] [address] [place] [address] [place] Urea nitrogen [Mass/Vol] 18 mg/dL Normal 7-21 [facility] Comment on above: Order Comment: Speci men Type: BLOOD SPECIMEN [facility] Address: [address] [place] [address] Performed By: #### 2 4321-2 #### [facility] CLIA [id number] [address] [place] [address] [place] CBC panel Auto (Bld)on 11-24 Erythrocyte distribution width (RBC) [Ratio] 14.3 % Normal 11.5-15.0 [facility] Comment on above: Order Comment: Speci men Type: BLOOD SPECIMEN [facility] Address: [address] [place] [address] Performed By: #### 5 7021-8 #### [facility] CLIA [id number] [address] [place] [address] [place] Hematocrit (Bld) [Volume fraction] 39.3 % Normal 36.0-46.0 [facility] Comment on above: Order Comment: Speci men Type: BLOOD SPECIMEN [facility] Address: [address] [place] [address] Performed By: #### 5 7021-8 #### [facility] CLIA [id number] [address] [place] [address] [place] Hemoglobin (Bld) [Mass/Vol] 12.8 g/dL Normal 11.5-15.5 [facility] Comment on above: Order Comment: Speci men Type: BLOOD SPECIMEN [facility] Address: [address] [place] [address] Performed By: #### 5 7021-8 #### [facility] CLIA [id number] [address] [place] [address] [place] MCH (RBC) [Entitic mass] 31.1 pg Normal 26.0-34.0 [facility] Comment on above: Order Comment: Speci men Type: BLOOD SPECIMEN [facility] Address: [address] [place] [address] Performed By: #### 5 7021-8 #### [facility] CLIA [id number] [address] [place] [address] [place] MCHC (RBC) [Mass/Vol] 32.6 g/dL Normal 30.5-36.0 [facility] Comment on above: Order Comment: Speci men Type: BLOOD SPECIMEN [facility] Address: [address] [place] [address] Performed By: #### 5 7021-8 #### [facility] CLIA [id number] [address] [place] [address] [place] MCV (RBC) [Entitic vol] 95.6 fL Normal 80.0-100.0 [facility] Comment on above: Order Comment: Speci men Type: BLOOD SPECIMEN [facility] Address: [address] [place] [address] Performed By: #### 5 7021-8 #### [facility] CLIA [id number] [address] [place] [address] [place] Nucleated RBC (Bld) [#/Vol] 10*3/uL Normal <0.01 [facility] Comment on above: Order Comment: Speci men Type: BLOOD SPECIMEN [facility] Address: [address] [place] [address] Performed By: #### 5 7021-8 #### [facility] CLIA [id number] [address] [place] [address] [place] Platelet mean volume (Bld) [Entitic vol] 11.0 fL Normal 9.0-12.7 [facility] Comment on above: Order Comment: Speci men Type: BLOOD SPECIMEN [facility] Address: [address] [place] [address] Performed By: #### 5 7021-8 #### [facility] CLIA [id number] [address] [place] [address] [place] Platelets (Bld) [#/Vol] 215 10*3/uL Normal 150-400 [facility] Comment on above: Order Comment: Speci men Type: BLOOD SPECIMEN [facility] Address: [address] [place] [address] Performed By: #### 5 7021-8 #### [facility] CLIA [id number] [place] [address] [place] RBC (Bld) [#/Vol] 4.11 10*6/uL Normal 3.90-5.20 [facility] Comment on above: Order Comment: Tremayne bill Type: BLOOD SPECIMEN [facility] Address: [address] [place] [address] Performed By: #### 5 7021-8 #### [facility] CLIA [id number] [address] [place] [address] [place] [facility] WBC (Bld) [#/Vol] 5.54 10*3/uL Normal 3.70-11.00 [facility] Comment on above: Order Comment: Tremayne men Type: BLOOD SPECIMEN [facility] Address: [address] [place] [address] Performed By: #### 5 7021-8 #### [facility] CLIA [id number] [address] [place] [address] HIGH SENSITIVITY TROPONIN To n 11-25-2023 Troponin T.cardiac High sensitivity method [Mass/Vol] 21 ng/L High <12 [facility] Comment on above: Order Comment: Tremayne bill Type: BLOOD SPECIMEN [facility] Address: [address] [place] [address] Result Comment: When assessing risk for acute [...] for 30 day MACE. Performed By: #### 5 7021-8 #### [facility] CLIA [id number] [address] [place] [address] [place] HISTORY PHYSICALon HISTORY PHYSICAL HNO ID: [id number] Author: LATRELL COOPER MD Service: General Internal Medicine Author Type: Physician Type: H&P Filed: 11/28/2023 04:54 Note Text: HISTORY AND PHYSICAL EXAMINATION SERVICE DATE: 11/25/2023 SERVICE TIME: 10:06 AM PRIMARY CARE PHYSICIAN: Demarco Newell MD Subjective CHIEF COMPLAINT: HOLLY HPI: This is a 78 year old female who presents with worsening SOB and HOLLY. She has a PMHx of HTN. HLD CAD- 70% restenosis of RCA stent, HFpEF, MR, AR, Afib, CKD3, hypothyroidism and GERD. She has complaints of unable to complete ADLs due to worsening HOLLY. She is planned for Tx to [facility] for treatment of 70% restenosis of RCA stent and severe MR found on VIOLA. She is followed by cardiology-Dr. Covarrubias. She felt like she was unable to make it to scheduled surgery date of 12/04 safely. She denies lightheadedness, headache, chest pain, abdominal pain, nausea, vomiting, diarrhea, constipation, urinary symptoms, fever or chills. FUNCTIONAL STATUS: Independent PAST MEDICAL HISTORY Diagnosis Date Aortic insufficiency CAD (coronary artery disease) 04/24/2022 Chronic kidney disease Depression GERD (gastroesophageal reflux disease) HTN (hypertension) Hyperlipidemia Hypothyroidism Knee pain Mitral regurgitation Pseudophakia of both eyes Seasonal allergic rhinitis [...] Types: Cigarettes Quit date: 04/28/1990 Years since quittin.6 Smokeless tobacco: Former Substance Use Topics Alcohol use: No Drug use: No potassium chloride SR (MICRO-K) 8 mEq cpER, Take 1 capsule by mouth once daily., Disp: 30 capsule, Rfl: 1, 11/23/2023 hydrALAZINE (APRESOLINE) 25 mg tablet, Take 1 tablet by mouth two times a day., Disp: 180 tablet, Rfl: 0, 11/23/2023 amiodarone (PACERONE) 200 mg tablet, Take 0.5 tablets by mouth once daily., Disp: , Rfl: 0, 11/24/2023 furosemide (LASIX) 20 mg tablet, Take 1 tablet by mouth once daily., Disp: 30 tablet, Rfl: 0, 11/24/2023 ELIQUIS 5 mg tab(s), Take 1 tablet by mouth every 12 hours., Disp: , Rfl: , 11/23/2023 isosorbide mononitrate ER (IMDUR) 30 mg 24 hr tablet, Take 30 mg by mouth., Disp: , Rfl: , 11/24/2023 liothyronine (CYTOMEL) 5 mcg tablet, Take 1 tablet by mouth every afternoon., Disp: , Rfl: , 11/24/2023 escitalopram oxalate (LEXAPRO) 10 mg tablet, Take 1 tablet by mouth every afternoon., Disp: , Rfl: , 11/24/[address] (PROTONIX) 40 mg tablet, Take 40 mg by mouth once daily., Disp: , Rfl: , 11/24/2023 atorvastatin (LIPITOR) 40 mg tablet, Take 40 mg by mouth once daily., Disp: , Rfl: , 11/24/2023 aspirin 81 mg cap, Take by mouth., Disp: , Rfl: , 11/24/2023 krill oil 500 mg cap, , Disp: , Rfl: , Not Taking vit A/vit C/vit E/zinc/copper (PRESERVISION AREDS ORAL), , Disp: , Rfl: , Not Taking traMADol (ULTRAM) 50 mg tablet, Take 50 mg by mouth three times daily as needed. (Patient not taking: Reported on 11/24/2023), Disp: , Rfl: , Not Taking Multivitamin capsule, Take 1 capsule by mouth once daily. (Patient not taking: Reported on 11/24/2023), Disp: , Rfl: , Not Taking ALLERGIES Allergen Reactions Serina Inhibitors Rash, Hives Amlodipine Swelling Codeine Vomiting Dilaudid [Hydromorp* Vomiting Meperidine Vomiting Morphine Vomiting Neurontin [Gabapent* Mental Status Change COMPLETE REVIEW OF SYSTEMS: RESPIRATORY: Negative for cough or wheezing. CARDIOVASCULAR: Negative for chest pain, leg swelling or palpitations. GI: Negative for abdominal discomfort, blood in stools or black stools or change in bowel habits : No history of dysuria, frequency or incontinence MUSCULOSKELETAL: Negative for joint pain or swelling, back pain or muscle pain. SKIN: Negative for lesions, rash, and itching. NEURO: No history of headaches, syncope, paralysis, seizures or tremors All other reviewed and negative other than HPI. Objective PHYSICAL EXAM: Physical Exam Performed: GENERAL: Alert, no distress, cooperative LUNGS: Lungs clear to auscultation. Good diaphragmatic excursion. CARDIAC: normal S1 and S2; no rubs, murmurs, or gallops ABDOMEN: Abdomen soft, non-tender. BS normal. No masses or organomegaly. EXTREMETIES: Extremities normal. No deformities, edema, clubbing or skin discoloration. NEURO: Alert, (more content not included)... Normal [facility] NURSING PROGon 11-25-2023 NURSING PROG HNO ID: [id number] Author: FLORENCIO COYLE, RN Service: Nursing Author Type: Registered Nurse Type: Nursing Progress Note Filed: 11/25/2023 19:49 Note Text: Other: Report called to Natalee at [facility] Main [place] floor [address]. Natalee made aware pt.scheduled to be picked up at 7:30 p.m tonight by [facility] and that pt still has Heparin drip infusing.Pt also made aware of pick-up time. Normal [facility] NURSING PROG HNO ID: [id number] Author: FLORENCIO COYLE RN Service: Nursing Author Type: Registered Nurse Type: Nursing Progress Note Filed: 11/25/2023 17:41 Note Text: Other: Dr Cooper made aware that pt has a bed available at [facility] building [address] bed 19 as per transfer center.Pt also made aware [facility] PT panel Coag (PPP)on 2023 INR Coag (PPP) [Relative time] 1.0 {INR} Normal 0.9-1.3 [facility] Comment on above: Order Comment: Speci men Type: BLOOD SPECIMEN Ordering Facility: [facility] Address: [address] [place] [address] Result Comment: Janeth min K Antagonist (VKA) Therapeutic Range: INR 2 to 3 (Target INR of 2.5) Note: For patients treated with VKA drugs, such as warfarin, the [place] [employer] 2012 Guideline recommends [...] to 3.5 (target INR of 3). Matteo GH, et al. Chest 2012, 141:7S-47S Mary RA, et al. [facility] 2017, 70: 252-289 Performed By: #### L [id number], 59163-6, 04257-0, 32143-0 #### [facility] CLIA [id number] [address] [place] [address] [place] PT Coag (PPP) [Time] 11.6 s Normal 9.7-13.0 [facility] Comment on above: Order Comment: Speci men Type: BLOOD SPECIMEN Ordering Facility: [facility] Address: [address] [place] [address] Performed By: #### L [id number], 06527-2, 42804-9, 42760-6 #### [facility] CLIA [id number] [address] [place] [address] [place] PTT, ANTICOAGULANT THERAPYon 11-25-2023 aPTT Coag (PPP) [Time] 64.4 s High 23.0-32.4 [facility] Comment on above: Order Comment: Speci men Type: BLOOD SPECIMEN Ordering Facility: [facility] Address: [address] [place] [address] Performed By: #### 5 7021-8 #### [facility] CLIA [id number] [address] [place] [address] [place] aPTT Coag (PPP) [Time] 86.0 s High 23.0-32.4 [facility] Comment on above: Order Comment: Speci men Type: BLOOD SPECIMENOrdering Facility: [facility] Address: [address] [place] [address] Performed By: #### P TTAC ####[facility] [id number] [place] [id number] [facility] [place] aPTT Coag (PPP) [Time] 39.5 s High 23.0-32.4 [facility] Comment on above: Order Comment: Speci men Type: BLOOD SPECIMEN Ordering Facility: [facility] Address: [address] [place] [address] Performed By: #### L [id number], 40661-7, 88340-0, 47150-9 #### [facility] CLIA [id number] [address] [place] [id number] [facility] [place] ALLIED HEALTHon 11-24-2023 ALLIED HEALTH HNO ID: [id number] Author: ALEXA STEWART RT(R) Service: Radiology Author Type: Technologist Type: Allied Health Filed: 11/24/2023 13:29 Note Text: Radiology Service Progress Note PATIENT NAME: Cece Hubbard DATE OF SERVICE: November 24, 2023 TIME: 1:29 PM PATIENT IDENTITY VERIFICATION COMPLETED USING TWO (2) IDENTIFIERS: Name and Date of confirmed by patient verbally. FALL SCREENING: Has the patient had 2 falls in the last year or 1 fall with injury or currently using an Ambulatory Assistive Device (Walker, Cane, Wheelchair, Crutches, etc.)? Inpatient: Screened on floor PATIENT GENDER DATA: Female. status: : No status: NO. PATIENT RELEVANT IMPLANT DATA REVIEWED: Not Applicable PATIENT PRESENTS WITH AN IMPLANTABLE OR ATTACHED SCALE ATTENDANT: No RADIOLOGY DEPARTMENT: General X-ray: Exam(s) Completed: Chest X-Ray PERIPHERAL IV DATA: Not applicable SIGNED BY: RT Joo(R) November 24, 2023 1:29 PM Normal [facility] CBC W Auto Differential pane l (Bld)on 11-24-2023 Basophils (Bld) [#/Vol] 0.06 10*3/uL Normal <0.11 [facility] Comment on above: Order Comment: Speci men Type: BLOOD SPECIMEN Ordering Facility: [facility] Address: [address] [place] [address] Performed By: #### 5 7021-8 #### [facility] CLIA [id number] [address] [place] [address] [place] Basophils/100 WBC (Bld) 0.9 % Normal [facility] Comment on above: Order Comment: Speci men Type: BLOOD SPECIMEN Ordering Facility: [facility] Address: [address] [place] [address] Performed By: #### 5 7021-8 #### [facility] CLIA [id number] [address] [place] [address] [place] Differential cell count method Nom (Bld) Auto Normal [facility] Comment on above: Order Comment: Speci men Type: BLOOD SPECIMEN Ordering Facility: [facility] Address: [address] [place] [address] Performed By: #### 5 7021-8 #### [facility] CLIA [id number] [address] [place] [address] [place] Eosinophils (Bld) [#/Vol] 0.06 10*3/uL Normal <0.46 [facility] Comment on above: Order Comment: Speci men Type: BLOOD SPECIMEN Ordering Facility: [facility] Address: [address] [place] [address] Performed By: #### 5 7021-8 #### [facility] CLIA [id number] [address] [place] [address] [place] Eosinophils/100 WBC (Bld) 0.9 % Normal [facility] Comment on above: Order Comment: Speci men Type: BLOOD SPECIMEN Ordering Facility: [facility] Address: [address] [place] [address] Performed By: #### 5 7021-8 #### [facility] CLIA [id number] [address] [place] [address] [place] Erythrocyte distribution width (RBC) [Ratio] 14.5 % Normal 11.5-15.0 [facility] Comment on above: Order Comment: Speci men Type: BLOOD SPECIMEN Ordering Facility: [facility] Address: [address] [place] [address] Performed By: #### 5 7021-8 #### [facility] CLIA [id number] [address] [place] [address] [place] Hematocrit (Bld) [Volume fraction] 39.2 % Normal 36.0-46.0 [facility] Comment on above: Order Comment: Speci men Type: BLOOD SPECIMEN Ordering Facility: [facility] Address: [address] [place] [address] Performed By: #### 5 7021-8 #### [facility] CLIA [id number] [address] [place] [address] [place] Hemoglobin (Bld) [Mass/Vol] 12.9 g/dL Normal 11.5-15.5 [facility] Comment on above: Order Comment: Speci men Type: BLOOD SPECIMEN Ordering Facility: [facility] Address: [address] [place] [address] Performed By: #### 5 7021-8 #### [facility] CLIA [id number] [address] [place] [address] [place] Immature granulocytes (Bld) [#/Vol] 10*3/uL Normal <0.10 [facility] Comment on above: Order Comment: Speci men Type: BLOOD SPECIMEN Ordering Facility: [facility] Address: [address] [place] [address] Performed By: #### 5 7021-8 #### [facility] CLIA [id number] [address] [place] [address] [place] Immature granulocytes/100 WBC (Bld) 0.3 % Normal [facility] Comment on above: Order Comment: Speci men Type: BLOOD SPECIMEN Ordering Facility: [facility] Address: [address] [place] [address] Performed By: #### 5 7021-8 #### [facility] CLIA [id number] [address] [place] [address] [place] Lymphocytes (Bld) [#/Vol] 1.19 10*3/uL Normal 1.00-4.00 [facility] Comment on above: Order Comment: Speci men Type: BLOOD SPECIMEN Ordering Facility: [facility] Address: [address] [place] [address] Performed By: #### 5 7021-8 #### [facility] CLIA [id number] [address] [place] [address] [place] Lymphocytes/100 WBC (Bld) 18.5 % Normal [facility] Comment on above: Order Comment: Speci men Type: BLOOD SPECIMEN Ordering Facility: [facility] Address: [address] [place] [address] Performed By: #### 5 7021-8 #### [facility] CLIA [id number] [address] [place] [address] [place] MCH (RBC) [Entitic mass] 31.6 pg Normal 26.0-34.0 [facility] Comment on above: Order Comment: Speci men Type: BLOOD SPECIMEN Ordering Facility: [facility] Address: [address] [place] [address] Performed By: #### 5 7021-8 #### [facility] CLIA [id number] [address] [place] [address] [place] MCHC (RBC) [Mass/Vol] 32.9 g/dL Normal 30.5-36.0 [facility] Comment on above: Order Comment: Speci men Type: BLOOD SPECIMEN Ordering Facility: [facility] Address: [address] [place] [address] Performed By: #### 5 7021-8 #### [facility] CLIA [id number] [address] [place] [address] [place] MCV (RBC) [Entitic vol] 96.1 fL Normal 80.0-100.0 [facility] Comment on above: Order Comment: Speci men Type: BLOOD SPECIMEN Ordering Facility: [facility] Address: [address] [place] [address] Performed By: #### 5 7021-8 #### [facility] CLIA [id number] [address] [place] [address] [place] Monocytes (Bld) [#/Vol] 0.65 10*3/uL Normal <0.87 [facility] Comment on above: Order Comment: Speci men Type: BLOOD SPECIMEN Ordering Facility: [facility] Address: [address] [place] [address] Performed By: #### 5 7021-8 #### [facility] CLIA [id number] [address] [place] [address] [place] Monocytes/100 WBC (Bld) 10.1 % Normal [facility] Comment on above: Order Comment: Speci men Type: BLOOD SPECIMEN Ordering Facility: [facility] Address: [address] [place] [address] Performed By: #### 5 7021-8 #### [facility] CLIA [id number] [address] [place] [address] [place] Neutrophils (Bld) [#/Vol] 4.44 10*3/uL Normal 1.45-7.50 [facility] Comment on above: Order Comment: Speci men Type: BLOOD SPECIMEN Ordering Facility: [facility] Address: [address] [place] [address] Performed By: #### 5 7021-8 #### [facility] CLIA [id number] [address] [place] [address] [place] Neutrophils/100 WBC (Bld) 69.3 % Normal [facility] Comment on above: Order Comment: Speci men Type: BLOOD SPECIMEN Ordering Facility: [facility] Address: [address] [place] [address] Performed By: #### 5 7021-8 #### [facility] CLIA [id number] [address] [place] [address] [place] Nucleated RBC (Bld) [#/Vol] 10*3/uL Normal <0.01 [facility] Comment on above: Order Comment: Speci men Type: BLOOD SPECIMEN Ordering Facility: [facility] Address: [address] [place] [address] Performed By: #### 5 7021-8 #### [facility] CLIA [id number] [address] [place] [address] [place] Nucleated RBC/100 WBC (Bld) [Ratio] 0.0 /100 WBC Normal [facility] Comment on above: Order Comment: Speci men Type: BLOOD SPECIMEN Ordering Facility: [facility] Address: [address] [place] [address] Performed By: #### 5 7021-8 #### [facility] CLIA [id number] [address] [place] [address] [place] Platelet mean volume (Bld) [Entitic vol] 11.3 fL Normal 9.0-12.7 [facility] Comment on above: Order Comment: Speci men Type: BLOOD SPECIMEN Ordering Facility: [facility] Address: [address] [place] [address] Performed By: #### 5 7021-8 #### [facility] CLIA [id number] [address] [place] [address] [place] Platelets (Bld) [#/Vol] 241 10*3/uL Normal 150-400 [facility] Comment on above: Order Comment: Speci men Type: BLOOD SPECIMEN Ordering Facility: [facility] Address: [address] [place] [address] Performed By: #### 5 7021-8 #### [facility] CLIA [id number] [address] [place] [address] [place] RBC (Bld) [#/Vol] 4.08 10*6/uL Normal 3.90-5.20 [facility] Comment on above: Order Comment: Speci men Type: BLOOD SPECIMEN Ordering Facility: [facility] Address: [address] [place] [address] Performed By: #### 5 7021-8 #### [facility] CLIA [id number] [address] [place] [address] [place] WBC (Bld) [#/Vol] 6.42 10*3/uL Normal 3.70-11.00 [facility] Comment on above: Order Comment: Speci men Type: BLOOD SPECIMEN Ordering Facility: [facility] Address: [address] [place] [address] Performed By: #### 5 7021-8 #### [facility] CLIA [id number] [place] [address] [place] Comprehensive metabolic 2000 panelon 11-24-2023 Albumin [Mass/Vol] 4.4 g/dL Normal 3.9-4.9 [facility] Comment on above: Order Comment: Speci men Type: BLOOD SPECIMEN Ordering Facility: [facility] Address: [address] [place] [address] Performed By: #### 5 7021-8 #### [facility] CLIA [id number] [address] [place] [address] [place] ALP [Catalytic activity/Vol] 103 U/L Normal 34-123 [facility] Comment on above: Order Comment: Speci men Type: BLOOD SPECIMEN Ordering Facility: [facility] Address: [address] [place] [address] Performed By: #### 5 7021-8 #### [facility] CLIA [id number] [address] [place] [address] [place] ALT [Catalytic activity/Vol] 13 U/L Normal 7-38 [facility] Comment on above: Order Comment: Speci men Type: BLOOD SPECIMEN Ordering Facility: [facility] Address: [address] [place] [address] Performed By: #### 5 7021-8 #### [facility] CLIA [id number] [address] [place] [address] [place] Anion gap [Moles/Vol] 12 mmol/L Normal 9-18 [facility] Comment on above: Order Comment: Speci men Type: BLOOD SPECIMEN Ordering Facility: [facility] Address: [address] [place] [address] Performed By: #### 5 7021-8 #### [facility] CLIA [id number] [address] [place] [address] [place] AST [Catalytic activity/Vol] 14 U/L Normal 13-35 [facility] Comment on above: Order Comment: Speci men Type: BLOOD SPECIMEN Ordering Facility: [facility] Address: [address] [place] [address] Performed By: #### 5 7021-8 #### [facility] CLIA [id number] [address] [place] [address] [place] Bilirubin [Mass/Vol] 1.2 mg/dL Normal 0.2-1.3 [facility] Comment on above: Order Comment: Speci men Type: BLOOD SPECIMEN Ordering Facility: [facility] Address: [address] [place] [address] Performed By: #### 5 7021-8 #### [facility] CLIA [id number] [address] [place] [address] [place] Calcium [Mass/Vol] 10.0 mg/dL Normal 8.5-10.2 [facility] Comment on above: Order Comment: Speci men Type: BLOOD SPECIMEN Ordering Facility: [facility] Address: [address] [place] [address] Performed By: #### 5 7021-8 #### [facility] CLIA [id number] [address] [place] [address] [place] Chloride [Moles/Vol] 100 mmol/L Normal 97-105 [facility] Comment on above: Order Comment: Speci men Type: BLOOD SPECIMEN Ordering Facility: [facility] Address: [address] [place] [address] Performed By: #### 5 7021-8 #### [facility] CLIA [id number] [address] [place] [address] [place] CO2 [Moles/Vol] 27 mmol/L Normal 22-30 [facility] Comment on above: Order Comment: Speci men Type: BLOOD SPECIMEN Ordering Facility: [facility] Address: [address] [place] [address] Performed By: #### 5 7021-8 #### [facility] CLIA [id number] [address] [place] [address] [place] Creatinine [Mass/Vol] 1.57 mg/dL High 0.58-0.96 [facility] Comment on above: Order Comment: Speci men Type: BLOOD SPECIMEN Ordering Facility: [facility] Address: [address] [place] [address] Performed By: #### 5 7021-8 #### [facility] CLIA [id number] [address] [place] [address] [place] Creatinine and Glomerular filtration rate.predicted panel (S/P/Bld) 34 mL/min/1.73m??? Low >=60 [facility] Comment on above: Order Comment: Tremayne bill Type: BLOOD SPECIMEN Ordering Facility: [facility] Address: [address] [place] [address] Result Comment: Amy mated Glomerular Filtration Rate [...] accurately reflect actual GFR. Performed By: #### 5 7021-8 #### [facility] CLIA [id number] [place] [address] [place] Glucose [Mass/Vol] 97 mg/dL Normal 74-99 [facility] Comment on above: Order Comment: [place]rem[place]ne bill Type: BLOOD SPECIMEN Ordering Facility: [facility] Address: [address] [place] [address] Result Comment: The [place] [employer] (ADA) provides guidance for cutoff [...] Standards of Medical Care in Diabetes 2016, [place] [employer]. Diabetes Care. 2016.39(Suppl 1). Performed By: #### 5 7021-8 #### [facility] CLIA [id number] [address] [place] [address] [place] Potassium [Moles/Vol] 4.2 mmol/L Normal 3.7-5.1 [facility] Comment on above: Order Comment: Speci men Type: BLOOD SPECIMEN Ordering Facility: [facility] Address: [address] [place] [address] Performed By: #### 5 7021-8 #### [facility] CLIA [id number] [place] [address] [place] Protein [Mass/Vol] 7.1 g/dL Normal 6.3-8.0 [facility] Comment on above: Order Comment: Speci men Type: BLOOD SPECIMEN Ordering Facility: [facility] Address: [address] [place] [address] Performed By: #### 5 7021-8 #### [facility] CLIA [id number] [address] [place] [address] [place] Sodium [Moles/Vol] 139 mmol/L Normal 136-144 [facility] Comment on above: Order Comment: Speci men Type: BLOOD SPECIMEN Ordering Facility: [facility] Address: [address] [place] [address] Performed By: #### 5 7021-8 #### [facility] CLIA [id number] [address] [place] [address] [place] Urea nitrogen [Mass/Vol] 16 mg/dL Normal 7-21 [facility] Comment on above: Order Comment: Speci men Type: BLOOD SPECIMEN Ordering Facility: [facility] Address: [address] [place] [address] Performed By: #### 5 7021-8 #### [facility] CLIA [id number] [address] [place] [address] [place] ECG COMPLETEon 11-24-2023 ECG COMPLETE Ventricular Rate : 7 0 BPM Atrial Rate : 70 BPM P-R Interval : 156 ms QRS Duration : 79 ms Q-T Interval : 414 ms QTC Calculation(Bazett) : 447 ms Calculated P [place] : 50 degrees Calculated R [place] : 44 degrees Calculated T [place] : 47 degrees Sinus rhythm Probable left atrial enlargement Borderline ECG 1239 Confirmed by DO BURNETT KATLYN ([id number]), senior editor MUMTAZ NG ([id number]) on 11/24/2023 6:50:25 PM NAME : CECE HUBBARD PID : [id number] : 1945 Gender : Female Race : ORD : [id number] Procedure Date : Nov 24 2023 12:38:01 Edit Date : Nov 24 2023 18:50:27 Diagnosis: Sinus rhythm Probable left atrial enlargement Borderline ECG 1239 Confirmed by DO BURNTET KATLYN ([id number]), senior editor MUMTAZ NG ([id number]) on 11/24/2023 6:50:25 PM Test Reason : Chest Pain Location : 402 : FVED TRIAGE Overread By : DO BURNETT KATLYN Edited By : MUMTAZ NG Referred By : , Acquired by : RITA [facility] ED NOTEon 11-24-2023 ED NOTE HNO ID: [id number] Author: ANTONIA CAPELLAN RN Service: Nursing Author Type: Registered Nurse Type: ED Notes Filed: 11/24/2023 13:53 Note Text: Pt presents to ED for SOB on exertion and weakness for the last week. Pt denies CP. Pt states she is scheduled at [facility] for cardiac surgery on 12/04. Pt ambulatory from home with . [facility] ED NOTE HNO ID: [id number] Author: ALYSE MULLER RN Service: ? Author Type: Registered Nurse Type: ED Notes Filed: 11/24/2023 13:30 Note Text: Bed: 18-ED Expected date: Expected time: Means of arrival: Comments: triage [facility] ED PROV NOTEon 11-24-2023 ED PROV NOTE HNO ID: [id number] Author: PRETTY LACY DO Service: Emergency Medicine Author Type: Physician Type: ED Provider Notes Filed: 11/24/2023 18:01 Note Text: ED Provider Note Patient Name: Cece Hubbard : 1945 SERVICE DATE: 11/24/23 History Patient presents with: Shortness of Breath: Pt states she has been short of breath for several days and worsening since Friday. Scheduled for cardiac surgery on December 04. Worse with exertion and denies chest pain. HPI Patient is a 78-year-old female with history of CAD, hypertension, hyperlipidemia, hypothyroidism presenting for evaluation of shortness of breath. Patient reports over the past week she has had worsening shortness of breath with exertion and generalized fatigue. No chest discomfort. Does have a history of A-fib and is on Eliquis, has been compliant with this. Denies any fevers or chills. No cough, congestion, urinary symptoms. States she was scheduled for a CABG in approximately 2 weeks but does not feel that she can wait as her symptoms are getting worse. States she was trying to change the sheets on her bed this morning and was completely exhausted afterwards which she states is unlike her. Chart reviewed: -Scheduled for CABG on 12/05/23 -Echo 10/28/2023 with an EF of 67% - cardiac cath 10/31/23 with 70% ISR of proximal RCA stent PAST MEDICAL HISTORY Diagnosis Date - Aortic insufficiency - CAD (coronary artery disease) 04/24/2022 - Chronic kidney disease - Depression - GERD (gastroesophageal reflux disease) - HTN (hypertension) - Hyperlipidemia - Hypothyroidism - Knee pain - Mitral regurgitation - Pseudophakia of both eyes - Seasonal allergic rhinitis PAST SURGICAL HISTORY Procedure Laterality Date - ARTHRP KNE CONDYLEANDPLATU MEDIALANDLAT COMPARTMENTS 05/11/2012 Knee replacement, total right - PAST SURGICAL HISTORY OF 08/11/2010 right knee partial replacement - PAST SURGICAL HISTORY OF bilat foot surgery for plantar faciitis - PAST SURGICAL HISTORY OF arthroscopy bilat knees - POST-CATARACT LASER SURGERY Bilateral 10/10/2022 - REMV CATARACT EXTRACAP,INSERT LENS Right 05/15/2022 - REMV CATARACT EXTRACAP,INSERT LENS Left 05/01/2022 FAMILY HISTORY Problem Relation Age of Onset - Coronary Artery Disease Father - Cancer Mother Social History Tobacco Use - Smoking status: Former Packs/day: 0.70 Years: 4.00 Additional pack years: 0.00 Total pack years: 2.80 Types: Cigarettes Quit date: 04/28/1990 Years since quittin.5 - Smokeless tobacco: Former Substance and Sexual Activity - Alcohol use: No - Drug use: No - Sexual activity: Not on file Comment: not asked ALLERGIES Allergen Reactions - Serina Inhibitors Rash, Hives - Amlodipine Swelling - Codeine Vomiting - Dilaudid [Hydromorp* Vomiting - Meperidine Vomiting - Morphine Vomiting - Neurontin [Gabapent* Mental Status Change Review of Systems Constitutional: Positive for fatigue. Negative for chills and fever. HENT: Negative for sore throat. Respiratory: Positive for shortness of breath. Negative for cough. Cardiovascular: Negative for chest pain. Gastrointestinal: Negative for abdominal pain, diarrhea, nausea and vomiting. Genitourinary: Negative for difficulty urinating. Musculoskeletal: Negative for arthralgias. Skin: Negative for wound. Allergic/Immunologic: Negative for immunocompromised state. Neurological: Negative for dizziness, light-headedness and headaches. Hematological: Does not bruise/bleed easily. Psychiatric/Behavioral: Negative for agitation. Physical Exam Vitals BP Pulse Temp Temp src Resp SpO2 Weight Height 11/24/23 1233 11/24/23 1233 11/24/23 1233 11/24/23 1233 11/24/23 1233 11/24/23 1233 11/24/23 1233 11/24/23 1233 162/71 72 36.7 ?C (98.1 ?F) Oral 16 95 % 83 kg (183 lb) 1.626 m (5' 4 ) Physical Exam Vitals and nursing note reviewed. Constitutional: General: She is not in acute distress. Appearance: She is well-developed. She is not ill-appearing or toxic-appearing. HENT: Head: Normocephalic and atraumatic. Cardiovascular: Rate and Rhythm: Normal rate and regular rhythm. Heart sounds: No murmur heard. No friction rub. No gallop. Pulmonary: Breath sounds: Normal breath sounds. No wheezing, rhonchi or rales. Abdominal: Palpations: Abdomen is soft. Musculoskeletal: Cervical back: Neck supple. Right lower leg: No tenderness. No edema. Left lower leg: No tenderness. No edema. Skin: General: Skin is warm and dry. Neurological: General: No focal deficit present. Mental Status: She is alert. Psychiatric: Mood and Affect: Mood normal. Behavior: Behavior normal. Diagnostic Testing ED Labs Ordered and Reviewed COMPREHENSIVE METABOLIC PANEL - Abnormal; Notable for the following components: Result Value Ref Range Creatinine 1.57 (*) 0.58 - 0.96 mg/dL Estimated Glomerular Filtration Rate 34 (*) >=60 mL/min/1.7 (more content not included)... Normal [facility] ED Triage Noteon 11-24-2023 ED Triage Note HNO ID: [id number] Author: MARION BURNETT DO Service: Emergency Medicine Author Type: Physician Type: ED Triage Notes Filed: 11/24/2023 12:36 Note Text: ED TRIAGE PROVIDER NOTE Patient Name: Cece Hubbard Service Date: 11/24/23 BRIEF HPI: This is a 78 year old female who presents to the ED with: SOB that got worse on Friday. Worse with exertion. No associated chest pain. Has chronic nausea that is unchanged. On Eliquis. Complaint with all of her meds. No increased leg swelling or weight gain. Chart review shows she is scheduled for: MVr-CABG s5-dltq-PTLE +/- AVR on 12/04 but she reports her symptoms got so severe she didn't think she was going to make it. BRIEF EXAM: Awake and Alert Ambulatory with steady gait TRIAGE WORKUP: Orders Placed This Encounter XR CHEST 2V FRONTAL/LAT COMPREHENSIVE METABOLIC PANEL (BMP+LFT) CBC + AUTO DIFF MAGNESIUM BLOOD High Sensitivity Troponin T with Reflex for ED Chest Pain PROBNP N-TERMINAL Clinical Impression ICD-10-CM 1. SOB (shortness of breath) R06.02 SIGNATURE: Marion Burnett, DO Normal [facility] HIGH SENSITIVITY TROPONIN T (INITIAL)on 11-24-2023 Troponin T.cardiac High sensitivity method [Mass/Vol] 20 ng/L High <12 [facility] Comment on above: Order Comment: [place] bill Type: BLOOD SPECIMEN Ordering Facility: [facility] Address: [address] [place] [address] Result Comment: When assessing risk for acute [...] for 30 day MACE. Performed By: #### 5 7021-8 #### [facility] CLIA [id number] [address] [place] [address] [place] HIGH SENSITIVITY TROPONIN T (SECOND)on 11-24-2023 Troponin T.cardiac High sensitivity method [Mass/Vol] 19 ng/L High <12 [facility] Comment on above: Order Comment: [place] bill Type: BLOOD SPECIMEN Ordering Facility: [facility] Address: [address] [place] [address] Result Comment: When assessing risk for acute [...] 30 day MACE. Performed By: #### L [id number], [id number], 82698-7, 02935-0 #### [facility] CLIA [id number] [place] [facility] HIGH SENSITIVITY TROPONIN T (THIRD) 3 HRS AFTER INITIALon 11-24-2023 Troponin T.cardiac High sensitivity method [Mass/Vol] Normal [facility] Comment on above: Order Comment: Speci men Type: BLOOD SPECIMEN Ordering Facility: [facility] Address: [address] [place] [address] Result Comment: Unab le to assay due to interference from hemolysis. Suggest reorder as clinically indicated. Performed By: #### L [id number], 87105-0, 43355-1, 84006-8 #### [facility] CLIA [id number] [address] [place] [address] [place] HISTORY PHYSICALon HISTORY PHYSICAL HNO ID: [id number] Author: EMILY TAYLOR PA-C Service: General Internal Medicine Author Type: Physician Material Specialist Type: H&P Filed: 11/24/2023 21:37 Note Text: HISTORY AND PHYSICAL EXAMINATION SERVICE DATE: 11/24/2023 SERVICE TIME: 7:01 PM PRIMARY CARE PHYSICIAN: Demarco Newell MD Subjective CHIEF COMPLAINT: HOLLY HPI: This is a 78 year old female with PMHx of HTN, HLD, CAD-70% restenosis of RCA stent, HFpEF, severe MR, Moderate AR, PAF, CKD 3, hypothyroidism, GERD. Pt presents form home with worsening chronic HOLLY and difficulty completing ADLs. Pt reports difficulty ambulationg, walking up stairs, changing her bedding without severe HOLLY. Pt has had several admissions in the last month due to similar complaints. Heart cath done with 70% restenosis of RCA stent and VIOLA with severe MR. Pt seen By Cardiology, Dr. Covarrubias. Pt has planned Mvr- CABG x 1 with possible AVR on 12/04 at [facility]. She states she was concerned I won't be able to make it until that day, so she came to the ED for evaluation. In ED, cardiology, Dr. Covarrubias consulted who recommended transfer to [facility] for CABG. Pt accepted by cardiology, Dr. Tyson Mcqueen. Transfer initiated in ED, awaiting bed. Hospital course: This is a 78 year old female with PMHx of HTN, HLD, CAD-70% restenosis of RCA stent, HFpEF, severe MR, PAF, CKD 3, hypothyroidism, GERD. Pt presents form home with worsening chronic HOLLY and difficulty completing ADLs. Pt reports difficulty ambulationg, walking up stairs, changing her bedding without severe HOLLY. Pt has had several admissions in the last month due to similar complaints. Heart cath done with 70% restenosis of RCA stent and VIOLA with severe MR. Pt seen By Cardiology, Dr. Covarrubias. Pt has planned MVr CABG on 12/04 at [facility]. She states she was concerned I won't be able to make it until that day, so she came to the ED for evaluation. In ED, cardiology, Dr. Covarrubias consulted who recommended transfer to [facility] for CABG. Pt accepted by cardiology, Dr. Tyson Mcqueen. Transfer initiated in ED, awaiting bed. Recent office visits reviewed FUNCTIONAL STATUS: Independent PAST MEDICAL HISTORY Diagnosis Date Aortic insufficiency CAD (coronary artery disease) 04/24/2022 Chronic kidney disease Depression GERD (gastroesophageal reflux disease) HTN (hypertension) Hyperlipidemia Hypothyroidism Knee pain Mitral regurgitation Pseudophakia of both eyes Seasonal allergic rhinitis [...] Types: Cigarettes Quit date: 04/28/1990 Years since quittin.5 Smokeless tobacco: Former Substance Use Topics Alcohol use: No Drug use: No potassium chloride SR (MICRO-K) 8 mEq cpER, Take 1 capsule by mouth once daily., Disp: 30 capsule, Rfl: 1, 11/23/2023 hydrALAZINE (APRESOLINE) 25 mg tablet, Take 1 tablet by mouth two times a day., Disp: 180 tablet, Rfl: 0, 11/23/2023 amiodarone (PACERONE) 200 mg tablet, Take 0.5 tablets by mouth once daily., Disp: , Rfl: 0, 11/24/2023 furosemide (LASIX) 20 mg tablet, Take 1 tablet by mouth once daily., Disp: 30 tablet, Rfl: 0, 11/24/2023 ELIQUIS 5 mg tab(s), Take 1 tablet by mouth every 12 hours., Disp: , Rfl: , 11/23/2023 isosorbide mononitrate ER (IMDUR) 30 mg 24 hr tablet, Take 30 mg by mouth., Disp: , Rfl: , 11/24/2023 liothyronine (CYTOMEL) 5 mcg tablet, Take 1 tablet by mouth every afternoon., Disp: , Rfl: , 11/24/2023 escitalopram oxalate (LEXAPRO) 10 mg tablet, Take 1 tablet by mouth every afternoon., Disp: , Rfl: , 11/24/[address] (PROTONIX) 40 mg tablet, Take 40 mg by mouth once daily., Disp: , Rfl: , 11/24/2023 atorvastatin (LIPITOR) 40 mg tablet, Take 40 mg by mouth once daily., Disp: , Rfl: , 11/24/2023 aspirin 81 mg cap, Take by mouth., Disp: , Rfl: , 11/24/2023 krill oil 500 mg cap, , Disp: , Rfl: , Not Taking vit A/vit C/vit E/zinc/copper (PRESERVISION AREDS ORAL), , Disp: , Rfl: , Not Taking traMADol (ULTRAM) 50 mg tablet, Take 50 mg by mouth three times daily as needed. (Patient not taking: Reported on 11/24/2023), Disp: , Rfl: , Not Taking Multivitamin capsule, Take 1 capsule by mouth once daily. (Patient not taking: Reported on 11/24/2023), Disp: , Rfl: , Not Taking ALLERG (more content not included)... Normal [facility] Magnesium SerPl-mCncon 11-23 Magnesium [Mass/Vol] 2.1 mg/dL Normal 1.7-2.3 [facility] Comment on above: Order Comment: Speci men Type: BLOOD SPECIMEN Ordering Facility: [facility] Address: [address] [place] [address] Performed By: #### 5 7021-8 #### [facility] CLIA [id number] [place] [address] [place] [facility] Natriuretic peptide.B prohormone N-Terminal [Mass/Vol] 251 pg/mL Normal <450 [facility] Comment on above: Order Comment: Speci men Type: BLOOD SPECIMEN Ordering Facility: [facility] Address: [address] [place] [address] Performed By: #### 5 7021-8 #### [facility] CLIA [id number] [place] [address] [place] NURSING PROGon 11-24-2023 NURSING PROG HNO ID: [id number] Author: SHUBHAM PALMA RN Service: ? Author Type: Registered Nurse Type: Nursing Progress Note Filed: 11/24/2023 19:56 Note Text: Transfer Note: PATIENT NAME: Cece Hubbard Patient Location: [facility]/ Room: [address] [facility]. Actions taken: Patient belongings with patient. Patient placed on telemetry. Vital signs and standing weight taken. Reoriented to floor and room. Call light within reach. Normal [facility] XR CHEST 2V FRONTAL/LATon XR CHEST 2V FRONTAL/LAT * * *Final Report* * * DATE OF EXAM: Nov 24 2023 1:31PM FVX [id number] - XR CHEST 2V FRONTAL/LAT / PROCEDURE REASON: Shortness of breath * * * * Physician Interpretation * * * * EXAMINATION: CHEST RADIOGRAPH (2 VIEW FRONTAL and LATERAL) CLINICAL HISTORY: Shortness of breath MQ: XC2_6 EXAM DATE/TIME: 11/24/2023 1:31 PM COMPARISON: 10/26/2023. RESULT: Lines, tubes, and devices: None. Lungs and pleura: No consolidation. No lung mass. No pleural effusion. No pneumothorax. Cardiomediastinal silhouette: Normal cardiomediastinal silhouette. Bones and soft tissues: Unremarkable. IMPRESSION: Stable exam with no acute radiographic abnormality. Housing Management Representative: PSCB Transcribe Date/Time: Nov 24 2023 1:37P Dictated by : FIRDA MONTEIRO MD This examination was interpreted and the report reviewed and electronically signed by: FRIDA MONTEIRO MD on Nov 24 2023 1:37PM EST [id number] Normal [facility] Discharge Instructionson Discharge Instructions [id number] Normal [facility] ED Clinical Summaryon 2023 ED Clinical Summary (Inserted Image. Mercedes ble to display) [place] [id number] ED Clinical Summary Person Information Name: CECE HUBBARD [place] Age: 78 Years : 1945 Sex: Female Language: Guamanian PCP: Demarco Newell MD Marital Status: Phone: [phone] MRN: Visit Id: Visit Reason: Fever > 75 years; Vomiting; Nausea; Chills; SICK Speciality: Acuity: 3 Enc Type: Emergency Med Service: Emergency Arrival: 11/09/2023 20:48:26 Discharge: 11/10/2023 00:23:00 LOS: 000 03:35 Checkin: 11/09/2023 20:48:26 Checkout: 11/10/2023 00:23:00 Dispo Type: Home (Routine DC) EVENTS: Event Name Event Status Request Date/Time Start Date/Time Complete Date/Time Arrive Complete 11/09/2023 20:48:26 11/09/2023 20:48:26 11/09/2023 20:48:26 Document Home Meds Request 11/09/2023 20:48:26 Triage Complete 11/09/2023 20:48:26 11/09/2023 20:58:28 11/09/2023 20:58:28 Bed Assign Complete 11/09/2023 20:48:26 11/09/2023 20:48:26 11/09/2023 20:48:26 Dr Exam Complete 11/09/2023 20:48:26 11/09/2023 20:52:28 11/09/2023 20:52:28 RN Exam Complete 11/09/2023 20:48:26 11/09/2023 21:10:06 11/09/2023 21:10:06 Registration Complete 11/09/2023 20:52:28 11/09/2023 21:47:35 11/09/2023 21:47:35 Dr Exam Complete 11/09/2023 20:54:00 11/09/2023 20:54:00 11/09/2023 20:54:00 EKG Complete 11/09/2023 21:08:53 11/09/2023 22:07:51 Meds Admin Complete 11/09/2023 21:08:53 11/09/2023 21:26:13 Pending Labs Complete 11/09/2023 21:08:53 11/10/2023 00:18:56 Lab Complete 11/09/2023 21:08:53 11/09/2023 21:58:42 X-Ray Complete 11/09/2023 21:08:53 11/09/2023 22:13:14 11/09/2023 22:38:34 Swab Complete 11/09/2023 21:08:53 11/09/2023 21:47:04 Pending Labs Complete 11/09/2023 21:35:14 11/09/2023 21:35:14 11/09/2023 21:58:42 Lab Complete 11/09/2023 21:35:14 11/09/2023 21:35:14 11/09/2023 21:58:42 Reg Complete Request 11/09/2023 21:47:35 Reg Bed Request Complete 11/09/2023 21:47:35 11/09/2023 21:47:35 11/09/2023 21:47:35 Meds Admin Complete 11/09/2023 22:17:31 11/09/2023 23:38:42 Wet Read Request 11/09/2023 22:38:34 Meds Admin Complete 11/09/2023 23:02:15 11/09/2023 23:32:28 Meds Admin Complete 11/09/2023 23:08:45 11/10/2023 00:20:06 Discharge Complete 11/10/2023 00:03:04 11/10/2023 00:34:31 11/10/2023 00:34:31 Transfer Complete 11/10/2023 00:34:31 11/10/2023 00:34:31 11/10/2023 00:34:31 ADDRESS: [address] [place] [address] [address] [id number] PHYS DOC NOTES: MEDICAL INFORMATION: Prescriptions Given: New Medications Printed Prescriptions amoxicillin-clavulanate (Augmentin 875 mg-125 mg Tab) 1 Tablets By Mouth every 12 hours for 7 Days. Refills: 0. azithromycin (azithromycin 250 mg Tab) 250 Milligram By Mouth As Directed. Refills: 0. PATIENT EDUCATION INFORMATION: Instructions: Community-Acquired Pneumonia, Adult, Biws-rj-Ecgd Follow up: With: Address: When: Demarco Newell [address] [place] [address], [place] [address] [facility] (1) In 3 days 11/12/2023 Comments: Follow-up with your primary care provider in 3 to 5 days. If symptoms worsen, do not improve, or new symptoms arise please report back to emergency department for further evaluation. DIAGNOSIS: Pneumonia Normal [facility] ED Note-Physicianon 11-10-19 ED Note-Physician Basic Information Time Seen: Stanley MCDUFFIE, Riccardo Garg 11/09/2023 20:52 Chief Complaint Came with the squad dt flu like sx. Pt said she's had chills, N/V all started 2 hrs prior to coming here. Hx of CAD, Mitral Valve Regurgitation, AFib, takes Eliquis. Heart Cath done previously at [facility]. History of Present Illness A 78-year-old female reports emerged department via squad, with chief complaint of flulike symptoms. Reports that she has had chills, nausea vomiting has been going on all day, with nausea and vomiting starting 2 hours before arrival. States that she has no recent sick contacts. Reports that she was recently discharged from the [facility] due to a history of CAD, which she had a heart cath performed for this about a week ago. Reports that she does have a history of mitral valve regurgitation, A-fib, and is on Eliquis. She denies any chest pain or shortness of breath with this. States that symptoms started abruptly today. Denies taking other medications for her symptoms. Review of Systems A 10 point review of systems is negative except as noted above. Medical and Surgical History: Reviewed and noted Social history: Lives at home Family History: Reviewed. Tobacco: Denies, former Physical Exam Vitals & Measurements T: 37.5 ?C(Oral) HR: 99(Monitored) RR: 20 BP: 147/69 SpO2: 93% HT: 162 cm WT: 88 kg BMI: 33.53 General: The patient appears well and in no apparent distress. Patient is resting comfortably on bed. Afebrile Skin: Warm, dry, no pallor noted. Head: Normocephalic, atraumatic Neck: No JVD Eye: PERRLA, EOMI ENT: Moist mucus membranes pharynx pink moist no erythema or exudates. Bilateral TMs intact with no erythema or bulging Cardiovascular: Regular rate normal peripheral perfusion Respiratory: No respiratory distress no accessory muscle use no obvious audible wheezing. Lung sounds clear to auscultation Chest Wall: no deformity Musculoskeletal: normal ROM, no deformity, no swelling GI: No obvious distention soft nontender nondistended no guarding rebounding or rigidity Neurological: A&O moves all extremities equal strength and symmetry Psychiatric: Cooperative and appropriate Medical Decision Making MEDICAL DECISION MAKING Number and Complexity of Problems Differential Diagnosis: [] [facility] Data External documents reviewed: [] My EKG interpretation: Reviewed My CT interpretation: [] My X-ray interpretation: Reviewed My Ultrasound interpretation: [] Decision rules/scores evaluated: [] Discussed with: [] Treatment and Disposition ED Course: -year-old female reports to the emergency department with chief complaint of nausea, vomiting, and chills. Reports started abruptly this evening. Concern for possible influenza. States that she was recently admitted for a [facility] due to history of heart cath. Reports is on Eliquis due to history of A-fib. Denies any chest pain or shortness of breath currently. On exam, patient is comfortable in the bed. No acute distress. Lung sounds clear auscultation. Due to concerns, we did do lab work. Lab work reviewed and noted. She has a slight bump of her creatinine, but we did review clinic think, which did show her creatinine is stable at 1.4. We did give patient fluids as well as Zofran. COVID and flu swabs are negative. Due to the x-ray, concern for possible bilateral lower lobe infiltrates. Discussed with the patient. Patient comfortable with outpatient treatments for antibiotics. Currently pending urinalysis and p.o. challenge. Discussed case with Dr. Flores, who is agreeable with continuation of care of this patient was handed off to him. Signout note: Urinalysis without acute findings. She passed p.o. challenge. Patient was discharged home per Riccardo's plan above. Jalen Flores DO, FAAEM Shared decision making: [] Code status: [] Assessment/Plan Pneumonia (J18.9: Pneumonia, unspecified organism) Orders: acetaminophen, 650 mg = 2 tab(s), Tab, Oral, Once, Stop date 11/09/23 22:17:00 EDT, STAT, Start date 11/09/23 22:17:00 EDT, 11/09/23 22:17:00 EDT ondansetron, 4 mg = 2 mL, Injection, IV Push, Once, Stop date 11/09/23 21:08:00 EDT, STAT, Start date 11/09/23 21:08:00 EDT, 11/09/23 21:08:00 EDT Sodium Chloride 0.9% intravenous solution, 1,000 mL, Soln-IV, IV, Once, Stop date 11/09/23 21:08:00 EDT, STAT, Start date 11/09/23 21:08:00 EDT, Infuse over 61, minute(s) Basic Metabolic Panel CBC w/ Auto Diff ECG 12 Lead Adult eGFR Hepatic Function Panel Influenza A&B Ag Lipase Level PT & PTT Rapid COVID Antigen ([facility] Troponin 0 Hr. Troponin 3 Hr. Troponin 6 Hr. Troponin 9 Hr. UA with Cult Rflx XR Chest Single View Medications Administered Given NS 1000 ml Bolus, 1000 mL, IV Zofran 4 mg/2 mL Injection, 4 mg, IV Push Disposition Plan Patient Discharge Condition Stable Discharge Disposition to home Discharge Prescription List Prescriptions Augmentin 875 mg-125 mg Tab, 1 t (more content not included)... Normal [facility] Comment on above: Result Comment: Elec tronically Signed By: Riccardo Angel PA-C\.br\Date and Time Signed: 11/09/23 23:09 EDT\.br\Electronically Co-Signed By: Jalen Flores DO\.br\Date and Time Co-Signed: 11/10/23 00:14 EDT ED Patient Education Noteon 11-10-2023 ED Patient Education Note Infectious Disease Community-Acquired Pneumonia, Adult Pneumonia is an infection of the lungs. It causes irritation and swelling in the airways of the lungs. Mucus and fluid may also build up inside the airways. This may cause coughing and trouble breathing. One type of pneumonia can happen while you are in a hospital. A different type can happen when you are not in a hospital (community-acquired pneumonia). What are the causes? This condition is caused by germs (viruses, bacteria, or fungi). Some types of germs can spread from person to person. Pneumonia is not thought to spread from person to person. What increases the risk? ? You have a long-term (chronic) disease, such as: ? Disease of the lungs. This may be chronic obstructive pulmonary disease (COPD) or asthma. ? Heart failure. ? Cystic fibrosis. ? Diabetes. ? Kidney disease. ? Sickle cell disease. ? HIV. ? You have other health problems, such as: ? Your body's defense system (immune system) is weak. ? A condition that may cause you to breathe in fluids from your mouth and nose. ? You had your spleen taken out. ? You do not take good care of your teeth and mouth (poor dental hygiene). ? You use or have used tobacco products. ? You go where the germs that cause this illness are common. ? You are older than 65 years of age. What are the signs or symptoms? ? A cough. ? A fever. ? Sweating or chills. ? Chest pain, often when you breathe deeply or cough. ? Breathing problems, such as: ? Fast breathing. ? Trouble breathing. ? Shortness of breath. ? Feeling tired (fatigued). ? Muscle aches. How is this treated? Treatment for this condition depends on many things, such as: ? The cause of your illness. ? Your medicines. ? Your other health problems. Most adults can be treated at home. Sometimes, treatment must happen in a hospital. ? Treatment may include medicines to kill germs. ? Medicines may depend on which germ caused your illness. Very bad pneumonia is rare. If you get it, you may: ? Have a machine to help you breathe. ? Have fluid taken away from around your lungs. Follow these instructions at home: Medicines ? Take vwjl-cpt-ycyfnzq and prescription medicines only as told by your doctor. ? Take cough medicine only if you are losing sleep. Cough medicine can keep your body from taking mucus away from your lungs. ? If you were prescribed antibiotics, take them as told by your doctor. Do not stop taking them even if you start to feel better. Lifestyle ? Do not smoke or use any products that contain nicotine or tobacco. If you need help quitting, ask your doctor. ? Do not drink alcohol. ? Eat a healthy diet. This includes a lot of vegetables, fruits, whole grains, low-fat dairy products, and low-fat (lean) protein. General instructions ? Rest a lot. Sleep for at least 8 hours each night. ? Sleep with your head and neck raised. Put a few pillows under your head or sleep in a reclining chair. ? Return to your normal activities as told by your doctor. Ask your doctor what activities are safe for you. ? Drink enough fluid to keep your pee (urine) pale yellow. ? If your throat is sore, gargle with a mixture of salt and water 3?4 times a day or as needed. To make salt water, completely dissolve ??1 tsp (3?6 g) of salt in 1 cup (237 mL) of warm water. ? Keep all follow-up visits. How is this prevented? ? Getting the pneumonia shot (vaccine). These shots have different types and schedules. Ask your doctor what works best for you. Think about getting this shot if: ? You are older than 65 years of age. ? You are 19?65 years of age and: ? You are being treated for cancer. ? You have long-term lung disease. ? You have other problems that affect your body's defense system. Ask your doctor if you have one of these. ? Getting your flu shot every year. Ask your doctor which type of shot is best for you. ? Going to the dentist as often as told. ? Washing your hands often with soap and water for at least 20 seconds. If you cannot use soap and water, use hand quality assurance qa lab technician. Contact a doctor if: ? You have a fever. ? You lose sleep because your cough medicine does not help. Get help right away if: ? You are short of breath and this gets worse. ? You have more chest pain. ? Your sickness gets worse. This is very serious if: ? You are an older adult. ? Your body's defense system is weak. ? You cough up blood. These symptoms may be an emergency. Get help right away. Call 911. ? Do not wait to see if the symptoms will go away. ? Do not drive yourself to the hospital. Summary ? Pneumonia is an infection of the lungs. ? Community-acquired pneumonia affects people who have not been in the hospital. Certain germs can cause this infection. ? This condition may be treate (more content not included)... Normal [facility] ED Patient Summaryon 024 ED Patient Summary (Inserted Image. Mercedes ble to display) [place] [id number] Patient Discharge Instructions Person Information Name: CECE HUBBARD Age: 78 Years Arrival Date: 11/09/2023 20:48:26 Discharge Diagnosis: Pneumonia Primary Care Physician: Demarco Newell MD Provider Information Primary Provider: Jalen Flores DO Advanced Torch Straightener And Heater:None The exam and treatment you received in the Emergency Department were for an urgent problem and are not intended as complete care. It is important that you follow up with a doctor, nurse practitioner, or physician?s chiropractic assistant for ongoing care. If your symptoms become worse or you do not improve as expected and you are unable to reach your usual health care provider, you should return to the Emergency Department. We are available 24 hours a day. CECE HUBBARD Steve has been given the following list of patient education materials, prescriptions and follow-up instructions: Follow-up Instructions: With: Address: When: Demarco Newell [facility] [facility], [address] [place] [id number] Business (1) In 3 days 11/12/2023 Comments: Follow-up with your primary care provider in 3 to 5 days. If symptoms worsen, do not improve, or new symptoms arise please report back to emergency department for further evaluation. In the event that this physician does not participate in your insurance network, please consult with your insurance company to find a nearby participating provider. Patient Education Materials: Community-Acquired Pneumonia, Adult, Lffc-fd-Uqpl A MESSAGE TO ALL PATIENTS REGARDING OPIOIDS PRESCRIPTION OPIOIDS: WHAT YOU NEED TO KNOW Prescription opioids can be used to help relieve dgtwvnwb-ij-wnspqh pain and are often prescribed following a surgery or injury, or for certain health conditions. These medications can be an important part of the treatment but also come with serious risks. It is important to work with your healthcare provider to make sure you are getting the safest, most effective care. WHAT ARE THE RISKS AND SIDE EFFECTS OF OPIOID USE? Prescription opioids carry serious risks of addiction and overdose, especially with prolonged use. An opioid overdose, often marked by slowed breathing, can cause sudden . The use of prescription opioids can have a number of side effects as well, even when taken as directed: ? Tolerance?meaning you might need to take more of the medication for the same pain relief ? Physical dependence?meaning you have symptoms of withdrawal when a medication is stopped ? Increased sensitivity to pain ? Constipation ? Nausea, vomiting, and dry mouth ? Sleepiness and dizziness ? Confusion ? Depression ? Low levels of testosterone that can result in lower sex drive, energy, and strength ? Itching and sweating RISKS ARE GREATER WITH: ? History of drug misuse, substance use disorder, or overdose ? Mental health conditions (such as depression or anxiety) ? Sleep apnea ? Older age (65 years and older) ? Avoid alcohol while taking prescription opioids. Also, unless specifically advised by your health care provider, medications to avoid include: ? Benzodiazepines (such as Xanax or Valium) ? Muscle relaxants (such as Soma or Flexeril) ? Hypnotics (such as Ambien or Lunesta) ? Other prescription opioids KNOW YOUR OPTIONS Talk to your health care provider about ways to manage your pain that don?t involve prescription opioids. Some of these options may actually work better and have fewer risks and side effects. Options may include: ? Pain relievers such as acetaminophen, ibuprofen, and naproxen ? Some medication that are also used for depression or seizures ? Physical therapy and exercise ? Cognitive behavioral therapy, a psychological, goal-directed approach, in which patients learn how to modify physical, behavioral, and emotional triggers of pain and stress. IF YOU ARE PRESCRIBED OPIOIDS FOR PAIN: ? Never take opioids in greater amounts or more often than prescribed. ? Follow up with your primary health care provider. o Work together to create a plan on how to manage your pain. o Talk about ways to help manage your pain that don?t involve prescription opioids. o Talk about any and all concerns and side effects. ? Help prevent misuse and abuse o Never sell or share prescription opioids. o Never use another person?s prescription opioids. ? Store prescription opioids in a secure place and out of reach of others (this may include visitors, children, friends, and family). ? Safely dispose of unused prescription opioids: Find your community drug take-back program or your pharmacy mail-back program, or flush them down the toilet, following guidance from the Food and Drug Administration (www.fda.gov/Drugs/Resourc esForYou). ? Visit www.cdc.gov/drugoverdose to learn about the risks of opioids abus (more content not included)... Normal [facility] Monitor Recordon 11-10-2023 Monitor Record [id number] Normal [facility] Monitor Record [id number] Normal [facility] Troponin 0 Hr.on 11-10-2023 Troponin 14.40 pg/mL Normal 10.10-27.1 0 [facility] Comment on above: Result Comment: The 95% CI (Confidence Interval) PPV (Positive Predictive Value) for myocardial infarction in females is 38 pg/mL, in males 51 pg/mL. The results should be used in conjunction with clinical conditions of myocardial infarction. (Access High Sensitivity Troponin I Instructions For Use, Giuseppe Hubbell, March 2018) Performed By: #### 2 [id number], [id number] #### [facility] [address] [place] [address] UA with Cult Rflxon 11-10-19 24 Color (U) Light-Yellow Normal Yellow [facility] Comment on above: Result Comment: Micr oscopic readings are only performed on those samples that meet specific criteria set forth by [facility]. Performed By: #### 4 [id number] #### [facility] [address] [place] [address] Glucose (U) [Mass/Vol] Negative Normal Negative [facility] Comment on above: Performed By: #### 4 [id number] #### [facility] [address] [place] [address] Ketones Ql (U) Negative Normal Negative [facility] Comment on above: Performed By: #### 4 [id number] #### [facility] [address] [place] [address] UA Blood Negative Normal Negative [facility] Comment on above: Performed By: #### 4 [id number] #### [facility] [address] [place] [address] UA Clarity Clear Normal Clear [facility] Comment on above: Performed By: #### 4 [id number] #### [facility] [address] [place] [address] UA Leuk Est Negative Normal Negative [facility] Comment on above: Performed By: #### 4 [id number] #### [facility] [address] [place] [address] UA Nitrite Negative Normal Negative [facility] Comment on above: Performed By: #### 4 [id number] #### [facility] [address] [place] [address] UA pH 5.0 Invalid Interpretation Code 5.0-9.0 [facility] Comment on above: Performed By: #### 4 [id number] #### [facility] [address] [place] [address] UA Protein Negative Normal Negative [facility] Comment on above: Performed By: #### 4 [id number] #### [facility] [address] [place] [address] UA Spec Grav 1.015 Invalid Interpretation Code 1.005-1.03 0 [facility] Comment on above: Performed By: #### 4 [id number] #### [facility] [address] [place] [address] UA Urobilinogen Negative Normal Negative [facility] Comment on above: Performed By: #### 4 [id number] #### [facility] [address] [place] [address] Urobilinogen (U) [Mass/Vol] Negative Normal Negative [facility] Comment on above: Performed By: #### 4 [id number] #### [facility] [address] [place] [address] XR Chest Single Viewon 11-09 XR Chest Single View Exam Date/Time: 11/09/2023 22:38 EDT Reason for Exam: Shortness of breath (SOB) Report IMPRESSION: Bibasilar opacity versus atelectasis. EXAMINATION: XR Chest Single View Clinical History: Shortness of breath (SOB) Comparison: None RESULT: Limitations from portable technique. Bibasilar opacity versus atelectasis of the lung bases. No large pleural effusion. No pneumothorax. Borderline enlarged cardiomediastinal silhouette, accentuated by technique. No acute osseous findings. Degenerative changes. Ordering Provider: Riccardo Angel FINAL REPORT Dictated: 11/10/2023 11:21 am Ramón Bonds MD Signed (Electronic Signature): 11/10/2023 11:21 am Signed by: Ramón Bonds MD Transcribed by: SALMA Technologist: SRF Technical Comments Radiation Dose: Ka,r in mGy = na DAP = na Normal [facility] BMPon 11-09-2023 Anion gap [Moles/Vol] 12 mmol/L Normal 6-16 [facility] Comment on above: Performed By: #### 2 [id number], [id number] #### [facility] [address] [place] [address] Calcium [Mass/Vol] 9.5 mg/dL Normal 8.9-11.1 [facility] Comment on above: Performed By: #### 2 [id number], [id number] #### [facility] [address] [place] [address] Chloride [Moles/Vol] 103 mmol/L Normal 101-111 [facility] Comment on above: Performed By: #### 2 [id number], [id number] #### [facility] [address] [place] [place] [address] CO2 [Moles/Vol] 25 mmol/L Normal 21-31 [facility] Comment on above: Performed By: #### 2 [id number], [id number] #### [facility] [address] [place] [address] Creatinine [Mass/Vol] 1.7 mg/dL High 0.5-1.3 [facility] Comment on above: Performed By: #### 2 [id number], [id number] #### [facility] [address] [place] [address] Glucose [Mass/Vol] 109 mg/dL Normal 55-199 [facility] Comment on above: Performed By: #### 2 [id number], [id number] #### [facility] [address] [place] [address] Potassium [Moles/Vol] 3.4 mmol/L Low 3.5-5.3 [facility] Comment on above: Performed By: #### 2 [id number], [id number] #### [facility] [address] [place] [address] Sodium [Moles/Vol] 137 mmol/L Normal 135-145 [facility] Comment on above: Performed By: #### 2 [id number], [id number] #### [facility] [address] [place] [address] Urea nitrogen [Mass/Vol] 24 mg/dL High 5-21 [facility] Comment on above: Performed By: #### 2 [id number], [id number] #### [facility] [address] [place] [address] Urea nitrogen/Creatinine [Mass ratio] 14 No Units Normal 10-20 [facility] Comment on above: Performed By: #### 2 [id number], [id number] #### [facility] [address] [place] [address] CBC w/ Auto Diffon 4 Basophils/100 WBC (Bld) 0.4 % Normal 0.0-2.0 [facility] Comment on above: Performed By: #### 2 [id number], [id number] #### [facility] [address] [place] [address] Basophils/Leukocytes Auto (Bld) [Pure # fraction] 0.0 E9/L Normal 0.0-0.2 [facility] Comment on above: Performed By: #### 2 [id number], [id number] #### [facility] [address] [place] [address] Eosinophils (Bld) [#/Vol] 0.0 E9/L Normal 0.0-0.5 [facility] Comment on above: Performed By: #### 2 [id number], [id number] #### [facility] [address] [place] [address] Eosinophils/100 WBC (Bld) 0.5 % Normal 0.0-8.0 [facility] Comment on above: Performed By: #### 2 [id number], [id number] #### [facility] [address] [place] [address] Erythrocyte distribution width (RBC) [Ratio] 14.7 % High 10.9-14.2 [facility] Comment on above: Performed By: #### 2 [id number], [id number] #### [facility] [address] [place] [address] Hematocrit (Bld) [Volume fraction] 30.8 % Low 34.0-46.0 [facility] Comment on above: Performed By: #### 2 [id number], [id number] #### [facility] [address] [place] [address] Hemoglobin (Bld) [Mass/Vol] 10.2 g/dL Low 12.0-16.0 [facility] Comment on above: Performed By: #### 2 [id number], [id number] #### [facility] [address] [place] [address] Lymphocytes (Bld) [#/Vol] 0.2 E9/L Low 1.0-4.0 [facility] Comment on above: Performed By: #### 2 [id number], [id number] #### [facility] [address] [place] [address] Lymphocytes/100 WBC (Bld) 2.4 % Low 14.0-50.0 [facility] Comment on above: Performed By: #### 2 [id number], [id number] #### [facility] [address] [place] [address] MCH (RBC) [Entitic mass] 31.0 pg Normal 27.0-34.0 [facility] Comment on above: Performed By: #### 2 [id number], [id number] #### [facility] [address] [place] [address] MCHC (RBC) [Mass/Vol] 33.1 g/dL Normal 31.4-36.0 [facility] Comment on above: Performed By: #### 2 [id number], [id number] #### [facility] [address] [place] [address] MCV (RBC) [Entitic vol] 93.5 fL Normal 80.0-100.0 [facility] Comment on above: Performed By: #### 2 [id number], [id number] #### [facility] [address] [place] [address] Monocytes (Bld) [#/Vol] 0.1 E9/L Low 0.2-1.0 [facility] Comment on above: Performed By: #### 2 [id number], [id number] #### [facility] [address] [place] [address] Neutrophils (Bld) [#/Vol] 6.5 E9/L Normal 2.0-7.5 [facility] Comment on above: Performed By: #### 2 [id number], [id number] #### [facility] [address] [place] [address] Neutrophils/100 WBC (Bld) 95.4 % High 36.0-75.0 [facility] Comment on above: Performed By: #### 2 [id number], [id number] #### [facility] [address] [place] [address] Platelet 173.0 E9/L Normal 150.0-500. 0 [facility] Comment on above: Performed By: #### 2 [id number], [id number] #### [facility] [address] [place] [address] Platelet mean volume (Bld) [Entitic vol] 7.9 fL Normal 6.4-10.8 [facility] Comment on above: Performed By: #### 2 [id number], [id number] #### [facility] [address] [place] [address] RBC (Bld) [#/Vol] 3.3 E12/L Low 4.3-5.9 [facility] Comment on above: Performed By: #### 2 [id number], [id number] #### [facility] [address] [place] [address] WBC corrected for nucl RBC Auto (Bld) [#/Vol] 6.8 E9/L Normal 4.0-11.0 [facility] Comment on above: Performed By: #### 2 [id number], [id number] #### [facility] [address] [place], [place] [id number] CHEMISTRYOrdered By: SYSTEM SYSTEM on 11-09-2023 Albumin [Mass/Vol] 4.0 g/dL Normal 3.3 - 5.0 gm/dL [facility] Albumin/Globulin [Mass ratio] 1.5 {ratio} Normal 1.1 - 2.2 [facility] ALP [Catalytic activity/Vol] 101 [iU]/d High 21 - 98 Int._Unit/ L [facility] ALT No additional P-5'-P [Catalytic activity/Vol] 13 [iU]/d Normal 6 - 46 Int._Unit/ L [facility] Anion gap [Moles/Vol] 12 mmol/L Normal 6 - 16 mEq/L [facility] AST [Catalytic activity/Vol] 15 [iU]/d Normal 5 - 43 Int._Unit/ L [facility] Bilirubin [Mass/Vol] 1.5 mg/dL High 0.0 - 1 .1 mg/dL [facility] Bilirubin.direct [Mass/Vol] 0.4 mg/dL Normal 0.0 - 0.4 mg/dL [facility] Bilirubin.indirect [Mass or moles/Vol] 1.1 mg/dL High 0.1 - 0.9 mg/dL [facility] Calcium [Mass/Vol] 9.5 mg/dL Normal 8.9 - 11. 1 mg/dL [facility] Chloride [Moles/Vol] 103 mmol/L Normal 101 - 1 11 mmol/L [facility] CO2 [Moles/Vol] 25 mmol/L Normal 21 - 31 mmol/L [facility] Creatinine [Mass/Vol] 1.7 mg/dL High 0.5 - 1.3 mg/dL [facility] eGFR 31 mL/min/1.73 m2 Low >=59mL/min /1.73 m2 [facility] Globulin (S) [Mass/Vol] 2.6 g/dL Normal 1.4 - 4.0 gm/dL [facility] Glucose [Mass/Vol] 109 mg/dL Normal 55 - 199 mg/dL [facility] Lipase [Catalytic activity/Vol] 37 U/L Normal 13 - 58 unit/L [facility] Potassium [Moles/Vol] 3.4 mmol/L Low 3.5 - 5.3 mmol/L [facility] Protein [Mass/Vol] 6.6 g/dL Normal 6.0 - 7.8 gm/dL [facility] Sodium [Moles/Vol] 137 mmol/L Normal 135 - 145 mmol/L [facility] Troponin 14.40 pg/mL Normal 10.10 - 27.10 pg/mL [facility] Comment on above: Interpretive Data: T he 95% CI (Confidence Interval) PPV (Positive Predictive Value) for myocardial infarction in females is 38 pg/mL, in males 51 pg/mL. The results should be used in conjunction with clinical conditions of myocardial infarction. (Access High Sensitivity Troponin I Instructions For Use, Giuseppe Hubbell, March 2018) Urea nitrogen [Mass/Vol] 24 mg/dL High 5 - 21 mg/dL [facility] Urea nitrogen/Creatinine [Mass ratio] 14 mg/mg Normal 10 - 20 [facility] COAGULATIONOrdered By: Chelsea Campo on 11-09-2023 aPTT Coag (PPP) [Time] 31.9 s Normal 25.1 - 36.5 second(s) [facility] Comment on above: Interpretive Data: P arameter 15 days - 4 weeks 1 - 5 months 6 - 11 months 1 - 5 years 6 - 10 years 11 - 17 years PTT Mean: 35.4 (27.6-45.6) Mean: 33.5 (24.8-40.7) Mean: 32.4 (25.1-40.7) Mean: 31.6 (24.0-39.2) Mean: 31.6 (26.9-38.7) Mean: 31.0 (24.6-38.4) Pediatric Reference ranges were obtained from a study by Murphy Weathers et al. prepared from 1437 samples obtained at 7 different centers using the same coagulation reagent and instrumentation as [facility]. Currently there are no coagulation studies available worldwide for children to 14 days, and no normal ranges. Heparin therapeutic range (represented by Anti-Factor Xa activity of 0.2 - 0.4 U/mL) corresponds to PTT of 56.6 - 109.0 sec. INR Coag (PPP) [Relative time] 1.71 {INR} Invalid Interpretation Code [facility] Comment on above: Interpretive Data: I NR results are specifically intended to assess patients stabilized on long-term Anticoagulation therapy suggested INR s Less Intensive Anticoagulation 2.0 3.0 Conventional Range 3.0 4.5 PT Coag (PPP) [Time] 19.2 s High 9.4 - 1 2.5 second(s) [facility] Comment on above: Interpretive Data: 1 5 days - 4 weeks 1 - 5 months 6 -11 months 1 5 years 6 10 years 11 -17 years Mean: 11.2 (9.5 12.6) Mean: 11.0 (9.7 12.8) Mean: 11.0 (9.8 13.0) Mean: 11.3 (9.9 13.4) Mean: 11.7 (10.0 14.6) Mean: 11.8 (10.0 - 14.1) Pediatric Reference ranges were obtained from a study by Murphy Weathers et al. prepared from 1437 samples obtained at 7 different centers using the same coagulation reagent and instrumentation as [facility]. Currently there are no coagulation studies available worldwide for children to 14 days, and no normal ranges. Consent for Treatmenton 10-11 Consent for Treatment [id number] Normal [facility] HEMATOLOGYOrdered By: SYSTEM SYSTEM on 11-09-2023 Basophils/100 WBC (Bld) 0.4 % Normal 0.0 - 2.0 % Remisol Heme Basophils/Leukocytes Auto (Bld) [Pure # fraction] 0.0 E9/L Normal 0.0 - 0.2 E9/L Remisol Heme Eosinophils (Bld) [#/Vol] 0.0 E9/L Normal 0.0 - 0.5 E9/L Remisol Heme Eosinophils/100 WBC (Bld) 0.5 % Normal 0.0 - 8.0 % Remisol Heme Erythrocyte distribution width (RBC) [Ratio] 14.7 % High 10.9 - 14.2 % Remisol Heme Hematocrit (Bld) [Volume fraction] 30.8 % Low 34.0 - 46.0 % Remisol Heme Hemoglobin (Bld) [Mass/Vol] 10.2 g/dL Low 12.0 - 16.0 gm/dL Remisol Heme Lymphocytes (Bld) [#/Vol] 0.2 E9/L Low 1.0 - 4.0 E9/L Remisol Heme Lymphocytes/100 WBC (Bld) 2.4 % Low 14.0 - 50.0 % Remisol Heme MCH (RBC) [Entitic mass] 31.0 pg Normal 27.0 - 34.0 pg Remisol Heme MCHC (RBC) [Mass/Vol] 33.1 g/dL Normal 31.4 - 36.0 gm/dL Remisol Heme MCV (RBC) [Entitic vol] 93.5 fL Normal 80.0 - 100.0 fL Remisol Heme Monocytes (Bld) [#/Vol] 0.1 E9/L Low 0.2 - 1.0 E9/L Remisol Heme Monocytes/100 WBC (Bld) 1.3 % Low 4.0 - 14.0 % Remisol Heme Neutrophils (Bld) [#/Vol] 6.5 E9/L Normal 2.0 - 7.5 E9/L Remisol Heme Neutrophils/100 WBC (Bld) 95.4 % High 36.0 - 75.0 % Remisol Heme Platelet 173.0 E9/L Normal 150.0 - 500.0 E9/L Remisol Heme Platelet mean volume (Bld) [Entitic vol] 7.9 fL Normal 6.4 - 10.8 fL Remisol Heme RBC (Bld) [#/Vol] 3.3 E12/L Low 4.3 - 5.9 E12/L Remisol Heme WBC corrected for nucl RBC Auto (Bld) [#/Vol] 6.8 E9/L Normal 4.0 - 11.0 E9/L Remisol Heme Hep Func Panelon 11-09-2023 Albumin [Mass/Vol] 4.0 g/dL Normal 3.3-5.0 [facility] Comment on above: Performed By: #### 2 [id number] #### [facility] [address] [place] [address] Albumin/Globulin (S) [Mass conc ratio] 1.5 Normal 1.1-2.2 [facility] Comment on above: Performed By: #### 2 [id number] #### [facility] [address] [place] [address] ALP [Catalytic activity/Vol] 101 Int._Unit/L High 21-98 [facility] Comment on above: Performed By: #### 2 [id number] #### [facility] [address] [place] [address] ALT No additional P-5'-P [Catalytic activity/Vol] 13 Int._Unit/L Normal 6-46 [facility] Comment on above: Performed By: #### 2 [id number] #### [facility] [address] [place] [address] AST [Catalytic activity/Vol] 15 Int._Unit/L Normal 5-43 [facility] Comment on above: Performed By: #### 2 [id number] #### [facility] [address] [place] [address] Bilirubin [Mass/Vol] 1.5 mg/dL High 0.0-1.1 [facility] Comment on above: Performed By: #### 2 [id number], [id number] #### [facility] [address] [place] [address] Bilirubin.direct [Mass/Vol] 0.4 mg/dL Normal 0.0-0.4 [facility] Comment on above: Performed By: #### 2 [id number], [id number] #### [facility] [address] [place] [address] Bilirubin.indirect [Mass or moles/Vol] 1.1 mg/dL High 0.1-0.9 [facility] Comment on above: Performed By: #### 2 [id number], [id number] #### [facility] [address] [place] [address] Globulin (S) [Mass/Vol] 2.6 g/dL Normal 1.4-4.0 [facility] Comment on above: Performed By: #### 2 [id number] #### [facility] [address] [place] [address] Protein [Mass/Vol] 6.6 g/dL Normal 6.0-7.8 [facility] Comment on above: Performed By: #### 2 [id number], [id number] #### [facility] [address] [place] [address] Influenza A&B Agon Influenzae A Ag Negative Normal Negative [facility] Comment on above: Performed By: #### 2 [id number], [id number] #### [facility] [address] [place] [address] Influenzae B Ag Negative Normal Negative [facility] Comment on above: Result Comment: Test sensitivity and specificity vary for age group, specimen type, antigen types, and prevalence of disease. Test results must be evaluated in conjunction with other clinical data available to the physician. Individuals who received nasally administered Influenza A vaccine may have positive test results up to 3 days after vaccination. Performed By: #### 2 [id number], [id number] #### [facility] [address] [place] [address] Lipase Levelon 11-09-2023 Lipase [Catalytic activity/Vol] 37 U/L Normal 13-58 [facility] Comment on above: Performed By: #### 2 [id number], [id number] #### [facility] [address] [place] [address] MICRO OTHER TESTSOrdered By: Chelsea Campo on 11-09-2023 Influenzae A Ag Negative (11/09/23 9:27 PM) Normal Negative [facility] Influenzae B Ag Negative 2 (11/09/23 9:27 PM) Normal Negative [facility] Comment on above: Interpretive Data: T est sensitivity and specificity vary for age group, specimen type, antigen types, and prevalence of disease. Test results must be evaluated in conjunction with other clinical data available to the physician. Individuals who received nasally administered Influenza A vaccine may have positive test results up to 3 days after vaccination. Rapid COV Int NEG Ctl Pass (11/09/23 9:27 PM) Normal [facility] Rapid COV Int POS Ctl Pass (11/09/23 9:27 PM) Normal [facility] SARS-CoV+SARS-CoV-2 (COVID-19) Ag IA.rapid Ql (Resp) Not Detected 7 (11/09/23 9:27 PM) Normal Not Detected [facility] Comment on above: Interpretive Data: Maryann eulogio Airstone Veritor System for Rapid Detection of SARS-CoV-2 is a chromatographic digital immunoassay intended for the direct and qualitative detection of SARS-CoV-2 nucleocapsid antigens in nasal swabs from individuals who are suspected of COVID-19 by their healthcare provider within the first five days of the onset of symptoms. Negative results should be treated as presumptive, do not rule out SARS-CoV-2 infection and should not be used as the sole basis for treatment or patient management decisions, including infection control decisions. Negative results should be considered in the context of a patient s recent exposures, history and the presence of clinical signs and symptoms consistent with COVID-19, and confirmed with a molecular assay, if necessary, for patient management. For in vitro diagnostic use. In the [place], only for use under an Emergency Use Authorization. In the [place], this test has not been FDA cleared or approved; this test has been authorized by FDA under an EUA for use by authorized laboratories; use by laboratories certified under the CLIA, 42 U.S.C. 263a, that meet requirements to perform moderate, high, or waived complexity tests and at the Point of Care (POC), i.e., in patient care settings operating under a CLIA Certificate of Waiver, Certificate of Compliance, or Certificate of Accreditation. This test has been authorized only for the detection of proteins from SARS-CoV-2, not for any other viruses or pathogens; and, in the [place], this test is only authorized for the duration of the declaration that circumstances exist justifying the authorization of emergency use of in vitro diagnostics for detection and/or diagnosis of the virus that causes COVID-19 under Section 564(b)(1) of the Act, 21 U.S.C. 360bbb-3(b)(1), unless the authorization is terminated or revoked sooner. PT & PTTon 11-09-2023 aPTT Coag (PPP) [Time] 31.9 second(s) Normal 25.1-36.5 [facility] Comment on above: Result Comment: Para meter 15 days - 4 weeks 1 - 5 months 6 - 11 months 1 - 5 years 6 - 10 years 11 - 17 years PTT Mean: 35.4 (27.6-45.6) Mean: 33.5 (24.8-40.7) Mean: 32.4 (25.1-40.7) Mean: 31.6 (24.0-39.2) Mean: 31.6 (26.9-38.7) Mean: 31.0 (24.6-38.4) Pediatric Reference ranges were obtained from a study by smooth Zamarripa al. prepared from 1437 samples obtained at 7 different centers using the same coagulation reagent and instrumentation as [facility]. Currently there are no coagulation studies available worldwide for children to 14 days, and no normal ranges. Heparin therapeutic range (represented by Anti-Factor Xa activity of 0.2 - 0.4 U/mL) corresponds to PTT of 56.6 - 109.0 sec. Performed By: #### 2 [id number], [id number] #### [facility] [address] [place] [address] INR Coag (PPP) [Relative time] 1.71 {INR} Invalid Interpretation Code [facility] Comment on above: Result Comment: INR results are specifically intended to assess patients stabilized on long-term Anticoagulation therapy suggested INR?s ?Less Intensive Anticoagulation? 2.0 ? 3.0 Conventional Range 3.0 ? 4.5 Performed By: #### 2 [id number], [id number] #### [facility] [address] [place] [address] PT Coag (PPP) [Time] 19.2 second(s) High 9.4-12.5 [facility] Comment on above: Result Comment: 15 d ays - 4 weeks 1 - 5 months 6 -11 months 1 ? 5 years 6 ? 10 years 11 -17 years Mean: 11.2 (9.5 ? 12.6) Mean: 11.0 (9.7 ? 12.8) Mean: 11.0 (9.8 ? 13.0) Mean: 11.3 (9.9 ? 13.4) Mean: 11.7 (10.0 ? 14.6) Mean: 11.8 (10.0 - 14.1) Pediatric Reference ranges were obtained from a study by Murphy Weathers et al. prepared from 1437 samples obtained at 7 different centers using the same coagulation reagent and instrumentation as [facility]. Currently there are no coagulation studies available worldwide for children to 14 days, and no normal ranges. Performed By: #### 2 [id number], [id number] #### [facility] [address] [place] [address] Pre-Arrival Noteon Pre-Arrival Note Pre-Arrival Summary Name: , ncems Current Date: 11/09/2023 20:48:59 EDT Gender: Female Date of : Age: 78 Pre-Arrival Type: EMS ETA: 11/09/2023 21:11:00 EDT Primary Care Physician: Presenting Problem: flu like symptoms Pre-Arrival User: Afshin Sagastume RN Referring Source: Location: [place] Completion Date/Time: 11/09/2023 20:42:00 [facility] Emergency Department Pre-Hospital Report Form _ Vital Signs: Pre-Hospital Report: Treatment in Route: Response to Treatment: Misc. Issues: Normal [facility] Rapid COVID Antigen ([facility])on 11-09-2023 Rapid COV Int NEG Ctl Pass Normal [facility] Comment on above: Performed By: #### 2 [id number], [id number] #### [facility] [address] [place] [address] Rapid COV Int POS Ctl Pass Normal [facility] Comment on above: Performed By: #### 2 [id number], [id number] #### [facility] [address] [place] [address] SARS-CoV+SARS-CoV-2 (COVID-19) Ag IA.rapid Ql (Resp) Not detected Normal Not Detected [facility] Comment on above: Result Comment: The BD Veritor? System for Rapid Detection of SARS-CoV-2 is a chromatographic digital immunoassay intended for the direct and qualitative detection of SARS-CoV-2 nucleocapsid antigens in nasal swabs from individuals who are suspected of COVID-19 by their healthcare provider within the first five days of the onset of symptoms. Negative results should be treated as presumptive, do not rule out SARS-CoV-2 infection and should not be used as the sole basis for treatment or patient management decisions, including infection control decisions. Negative results should be considered in the context of a patient?s recent exposures, history and the presence of clinical signs and symptoms consistent with COVID-19, and confirmed with a molecular assay, if necessary, for patient management. For in vitro diagnostic use. In the [facility], only for use under an Emergency Use Authorization. In the [place], this test has not been FDA cleared or approved; this test has been authorized by FDA under an EUA for use by authorized laboratories; use by laboratories certified under the CLIA, 42 U.S.C. ?263a, that meet requirements to perform moderate, high, or waived complexity tests and at the Point of Care (POC), i.e., in patient care settings operating under a CLIA Certificate of Waiver, Certificate of Compliance, or Certificate of Accreditation. This test has been authorized only for the detection of proteins from SARS-CoV-2, not for any other viruses or pathogens; and, in the [facility], this test is only authorized for the duration of the declaration that circumstances exist justifying the authorization of emergency use of in vitro diagnostics for detection and/or diagnosis of the virus that causes COVID-19 under Section 564(b)(1) of the Act, 21 U.S.C. ? 360bbb-3(b)(1), unless the authorization is terminated or revoked sooner. Performed By: #### 2 [id number], [id number] #### [facility] [address] [place] [address] UA with Cult Rflxon 11-09-19 UA Spec Desc Clean Catch Normal [facility] Comment on above: Performed By: #### 4 [id number] #### [facility] [address] [place] [address] URINALYSISOrdered By: Gareth Boo on 11-09-2023 Color (U) Light-Yellow 1 (11/09/23 11:30 PM) Normal Yellow [facility]A Auto SS Comment on above: Interpretive Data: M icroscopic readings are only performed on those samples that meet specific criteria set forth by [facility]. Glucose (U) [Mass/Vol] Negative Normal Negat ivemg /dL [facility] UA Auto SS Ketones Ql (U) Negative Normal Negativemg /dL [facility] UA Auto SS UA Blood Negative (11/09/23 11:30 PM) Normal Negative [facility] UA Auto SS UA Clarity Clear (11/09/23 11:30 PM) Normal Clear [facility] UA Auto SS UA Leuk Est Negative (11/09/23 11:30 PM) Normal Negative [facility] UA Auto SS UA Nitrite Negative Normal Negativemg /dL [facility] UA Auto SS UA pH 5.0 *NA* (11/09/23 11:30 PM) Invalid Interpretation Code 5.0 - 9.0 [facility] UA Auto SS UA Protein Negative Normal Negativemg /dL [facility] UA Auto SS UA Spec Grav 1.015 *NA* (11/09/23 11:30 PM) Invalid Interpretation Code 1.005 - 1.030 [facility] UA Auto SS UA Urobilinogen Negative Normal Negativemg /dL [facility] UA Auto SS Urobilinogen (U) [Mass/Vol] Negative Normal Negativemg /dL [facility] UA Auto SS URINALYSISOrdered By: Riccardo alatorre on 11-09-2023 UA Spec Desc Clean Catch (11/09/23 11:30 PM) Normal [facility] UA Auto SS Work Phone: eGFRon 11-09-2023 eGFR 31 mL/min/1.73 m2 Low >=59 [facility] Comment on above: Order Comment: Order added by Discern Expert. Performed By: #### 2 [id number], [id number] #### [facility] [address] [place] [address] CNDSon 11-06-2023 CNDS HNO ID: [id number] Author: KAIT EASLEY APRN.UTILIZATION SPECIALIST Service: Hospital Medicine Author Type: Nurse Practitioner Type: Discharge Summary Filed: 11/07/2023 05:44 Note Text: -- Attestation signed by Carmen Chaidez MD at 11/07/2023 3:08 PM Carmen Herman MD -- DISCHARGE NOTE (Patient Admitted Less than 48 Hours) SERVICE DATE: 11/06/2023 SERVICE TIME: 11:00 AM ADMISSION DATE: 11/04/2023 DISCHARGE DISPOSITION: Home with Self Care BP 141/94 Pulse 66 Temp 36.5 ?C (97.7 ?F) (Oral) Resp 19 Ht 160 cm (5' 3 ) Wt 84.3 kg (185 lb 12.8 oz) SpO2 96% BMI 32.91 kg/m? General: Awake, Alert, Oriented, Sitting comfortably in bed; NAD Lungs: CTA Chest: No chest wall tenderness Heart: RRR; systolic murmur Abdomen: Soft, nontender, positive bowel sounds Extremities: SMITH, RLE with bruising thigh extending to right knee. No open areas. (+) dorsalis pedis pulse; and good capillary refill to toes. Neuro: Cognition, Motor, Sensory grossly intact Placed in hospital observation for complaint of right groin pain, swelling, bruising right lower extremity following cardiac cath 10/31/23. Symptoms occurred in setting of known past medical history of CAD, CKD, HTN, HLD, A-fib (on Eliquis) with cardiac cath on 10/31/2023. Per EPIC review, had a small right thigh hematoma improving on discharge. Eliquis and ASA resumed after hospital release. This OBV stay Right groin ultrasound notable for a pseudoaneurysm arising from common femoral artery at proximal thigh. Chamber 1 measures 2.4 cm x 3.1 cm x 3.0 cm. Pseudoaneurysm tract width measures 0.7 cm. Ultrasound guided compression repair performed for 90 min with success. A small Arteriovenous fistulas was seen communicating between the common femoral artery and the common femoral vein. Compression was not successful in closing of his AVF. Seen by Vascular Surgery; no intervention required for the above noted AVF. Anticoagulation was held and right leg was serina wrapped. Circulation checks done throughout observation stay and were satisfactory. Blood hemoglobin stable Repeat US of right leg today was negative for pseudoaneurysm, deep vein thrombosis, arteriovenous fistula and hematoma Seen by Dr Covarrubias and cleared for hospital release After Discharge 1) May resume anticoagulation 2) Use of support hose recommended 3) Advised that bluish leg discoloration will worsen before it gets better. May extend down to knee and calf 4) Leg may ache but should get better daily over next several weeks 5) Instructed to call Dr Covarrubias'a office this week to arrange for follow up two weeks DIET: Heart Healthy ACTIVITY AFTER DISCHARGE: Resume pre-hospital activity FOLLOW UP CARE REQUIRED: Dr Covarrubias 2 weeks DISCHARGE MEDICATIONS: Medication List CONTINUE taking these medications amiodarone 200 mg tablet Commonly known as: PACERONE Take 0.5 tablets by mouth once daily. aspirin 81 mg Cap atorvastatin 40 mg tablet Commonly known as: LIPITOR ELIQUIS 5 mg tab(s) Generic drug: apixaban escitalopram oxalate 10 mg tablet Commonly known as: LEXAPRO furosemide 20 mg tablet Commonly known as: LASIX Take 1 tablet by mouth once daily. hydrALAZINE 25 mg tablet Commonly known as: APRESOLINE Take 1 tablet by mouth two times a day. isosorbide mononitrate ER 30 mg 24 hr tablet Commonly known as: IMDUR krill oil 500 mg Cap liothyronine 5 mcg tablet Commonly known as: CYTOMEL Multivitamin capsule pantoprazole DR 40 mg tablet Commonly known as: PROTONIX potassium chloride 10 mEq tablet Commonly known as: K-TAB Take 1 tablet by mouth once daily. PRESERVISION AREDS ORAL traMADol 50 mg tablet Commonly known as: ULTRAM STOP taking these medications BIOTIN ORAL OCUVITE ORAL TYRVAYA 0.03 mg/spray nasal spray Generic drug: varenicline ubidecarenone Q-10 10 mg Cap Commonly known as: COENZYME Q-10 FINAL DIAGNOSIS: Principal Problem: Pseudoaneurysm of femoral artery (HCC) Active Problems: HTN (hypertension) Hyperlipidemia CAD (coronary artery disease) Severe mitral regurgitation Atrial fibrillation (HCC) Hematoma of right lower leg Right leg swelling Arteriovenous fistula of femoral vessels (HCC) I have performed the [id number]-dhmp and relevant services for a total of < 30 minutes. SIGNATURE: Kait Easley APRN.UTILIZATION SPECIALIST PATIENT NAME: Cece Hubbard DATE: November 06, 2023 TIME: 11:00 AM Normal [facility] CONSULT PROGon 11-06-2023 CONSULT PROG HNO ID: [id number] Author: VASYL COVARRUBIAS MD Service: Cardiovascular Medicine Author Type: Physician Type: Consult Progress Note Filed: 11/06/2023 10:46 Note Text: CARDIOLOGY CONSULT PROGRESS NOTE SERVICE DATE: 11/06/2023 Time: 10:41 AM ATTENDING: Delisa Holman MD 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 Helper: Vasyl Covarrubias MD ASSESSMENT: Admitted with right groin pain and hematoma. Recent admission for with worsening dyspnea -patient says it became a problem when she started amiodarone HFpEF, moderately severe MR ([facility] [place] 07/2023: MR ERO 0.33 cm2, MR volume 67cm.)and +2 AI at [facility], says was being considered for MVR LAY (resolved ) on CKD Paroxysmal A-fib diagnosed 09/2023, started Amiodarone, has been NSR during this hospital stay. Low-dose BB metoprolol 25 twice daily was attempted for a couple of days but significant bradycardia in the 40s [not symptomatic] and therefore BB discontinued AC Eliquis CAD PCI LAD Synergy 03/2022 ; PCI RCA Synergy 3.0 x 20 in 05/2020, NM stress test reported normal 07/2023. Heart cath 10/31/2023: 70% ISR of proximal RCA stent Hypertension Hyperlipidemia, LDL 37 in 10/2023, at home on statin CKD ~ 1.4 Thyroid disease, BMI 32, GERD, depression anxiety, back and knee surgeries Card meds [employer]: Eliquis 5 twice daily, amiodarone 100 daily, Losartan 100 daily, Imdur 30 daily, hydralazine 25 twice daily, Lasix 20 daily, K-Dur 10 daily, Lipitor 40 daily RECOMMENDATIONS: Discussed results of Groin US: S/P compression, no hematoma, no AV fistula no pseudoaneurysm Resume Eliquis tomorrow Resume ASA today Discussed with pt and with SIDING APPLICATOR Aubree VITAL SIGNS (last recorded): 11/06/23 0021 11/06/23 0419 11/06/23 0720 11/06/23 0800 BP: 131/62 141/51 141/94 Pulse: 64 66 70 66 Resp: 18 18 19 Temp: 36.8 ?C (98.2 ?F) 36.7 ?C (98.1 ?F) 36.5 ?C (97.7 ?F) TempSrc: Oral Oral Oral SpO2: 98% 98% 97% 96% Weight: Height: Comfortable, not in acute distress. INTERIM HISTORY: feels fine, wants to go home MEDICATIONS: Current Facility-Administered Medications: amiodarone 100 mg tab(s) (PACERONE) atorvastatin 40 mg tab(s) (LIPITOR) hydrALAZINE 25 mg tab(s) (APRESOLINE) furosemide 20 mg tab(s) (LASIX) potassium chloride ER 10 mEq tab(s) (KLOR-CON M10) pantoprazole DR 40 mg tab(s) (PROTONIX) escitalopram oxalate 10 mg tab(s) (LEXAPRO) liothyronine 5 mcg tab(s) (CYTOMEL) isosorbide mononitrate ER 30 mg tab(s) (IMDUR) NaCl 0.9% iv flush bag acetaminophen 650 mg tab(s) (TYLENOL) PHYSICAL EXAM: Body mass index is 32.91 kg/m?. Awake, alert LUNGS: Decreased BSs bilaterally. CARDIAC: S1 and S2 EXTREMITIES: No edema. bruises DATA: Diagnostic tests reviewed for today's visit: Reviewed recent relevant labs, EKG and imaging results. CBC, Coags, BMP, Mg, Phos Recent Labs 11/05/23 0710 11/05/23 0152 11/04/23 1451 WBC 5.99 6.94 7.35 HB 9.7* 9.7* 11.1* HCT 28.7* 28.7* 33.4* PLT 150 152 187 NA 140 -- 140 K 3.9 -- 3.8 CHLOR 105 -- 102 CO2 25 -- 26 BUN 24* -- 24* CREAT 1.40* -- 1.45* GLUC 104* -- 99 CA 9.1 -- 9.4 Liver Function, Amylase, AND Lipase Recent Labs 11/04/23 1451 TPROT 6.7 ALB 4.3 ALT 12 AST 13 ALKPHOS 107 TBILI 0.9 Cardiac Enzymes ABGs Last Lab Drawn: Thank you, Recommendations are communicated via shared electronic medical records. This note was partially generated using voice recognition system, there may be some incorrect words, spellings, and punctuation that were not noted in checking the note before saving. SIGNATURE: Vasyl Covarrubias MD PATIENT NAME: Cece Hubbard DATE: 11/06/2023 TIME: 10:41 AM call 24 hour service line Normal [facility] NURSING PROGon 11-06-2023 NURSING PROG HNO ID: [id number] Author: SAMI PAGE RN Service: ? Author Type: Registered Nurse Type: Nursing Progress Note Filed: 11/06/2023 11:51 Note Text: Other: Pt. is ready for d/c home. IV and telemetry pack removed. Pt. dressed and packed her belongings. Discharge instructions reviewed with pt. and her spouse and they verbalized understanding. Pt. d/c via w/c with belongings. Normal [facility] US GROIN UNL VAS LABon 11-05 GROIN UNL VAS LAB Non-Invasive Vascul ar Laboratory [facility] Lower Extremity Arterial Duplex for Pseudoaneurysm Unilateral - Right Date of service/time: 11/06/2023 7:40:53 AM Name: CECE HUBBARD Date of : 1945 Age: 78 years Gender: F Clinical Indication Recheck following ultrasound guided compression repair. TECHNIQUE -------- An arterial duplex ultrasound examination was performed, including grayscale imaging and color Doppler and spectral Doppler examination of the below mentioned arteries. FINDINGS -------- RIGHT SIDE External iliac artery : PSV: 190 cm/s. Common femoral artery : PSV: 124 cm/s. Superficial femoral artery : PSV: 91 cm/s. Profunda femoral artery : PSV: 60 cm/s. External iliac vein: Doppler: normal flow. Compression: normal. Common femoral vein: Doppler: normal flow. Compression: normal. Femoral vein: Doppler: normal flow. Compression: normal. IMPRESSION Thrombosed right groin pseudoaneurysm noted. RIGHT SIDE Negative for pseudoaneurysm, deep vein thrombosis, arteriovenous fistula and hematoma. Technologist: Rosita Mclain [facility] Ordering physician: VASYL COVARRUBIAS Interpreting physician: Grant King MD, PALAK Final CC [employer] Image : [id number] See Link below for Image Normal [facility] Basic metabolic 2000 panelon 11-05-2023 Anion gap [Moles/Vol] 10 mmol/L Normal 9-18 [facility] Comment on above: Order Comment: Speci men Type: BLOOD SPECIMEN Ordering Facility: [facility] Address: [address] [place] [address] Performed By: #### 5 7021-8 #### [facility] CLIA [id number] [address] [place] [address] [place] Calcium [Mass/Vol] 9.1 mg/dL Normal 8.5-10.2 [facility] Comment on above: Order Comment: Speci men Type: BLOOD SPECIMEN Ordering Facility: [facility] Address: [address] [place] [address] Performed By: #### 5 7021-8 #### [facility] CLIA [id number] [address] [place] [address] [place] Chloride [Moles/Vol] 105 mmol/L Normal 97-105 [facility] Comment on above: Order Comment: Speci men Type: BLOOD SPECIMEN Ordering Facility: [facility] Address: [address] [place] [address] Performed By: #### 5 7021-8 #### [facility] CLIA [id number] [address] [place] [address] [place] CO2 [Moles/Vol] 25 mmol/L Normal 22-30 [facility] Comment on above: Order Comment: Zaki fly Type: BLOOD SPECIMEN Ordering Facility: [facility] Address: [address] [place] [address] Performed By: #### 5 7021-8 #### [facility] CLIA [id number] [address] [place] [address] [place] Creatinine [Mass/Vol] 1.40 mg/dL High 0.58-0.96 [facility] Comment on above: Order Comment: Zaki fly Type: BLOOD SPECIMEN Ordering Facility: [facility] Address: [address] [place] [address] Performed By: #### 5 7021-8 #### [facility] CLIA [id number] [address] [place] [address] [place] Creatinine and Glomerular filtration rate.predicted panel (S/P/Bld) 39 mL/min/1.73m??? Low >=60 [facility] Comment on above: Order Comment: Tremayne bill Type: BLOOD SPECIMEN Ordering Facility: [facility] Address: [address] [place] [address] Result Comment: Amy mated Glomerular Filtration Rate [...] accurately reflect actual GFR. Performed By: #### 5 7021-8 #### [facility] CLIA [id number] [address] [place] [address] [place] Glucose [Mass/Vol] 104 mg/dL High 74-99 [facility] Comment on above: Order Comment: Zaki fly Type: BLOOD SPECIMEN Ordering Facility: [facility] Address: [address] [place] [address] Result Comment: The [place] Diabetes Association (ADA) provides guidance for cutoff [...] Standards of Medical Care in Diabetes 2016, [place] [employer]. Diabetes Care. 2016.39(Suppl 1). Performed By: #### 5 7021-8 #### [facility] CLIA [id number] [address] [place] [address] [place] Potassium [Moles/Vol] 3.9 mmol/L Normal 3.7-5.1 [facility] Comment on above: Order Comment: Speci men Type: BLOOD SPECIMEN Ordering Facility: [facility] Address: [address] [place] [address] Performed By: #### 5 7021-8 #### [facility] CLIA [id number] [address] [place] [address] [place] Sodium [Moles/Vol] 140 mmol/L Normal 136-144 [facility] Comment on above: Order Comment: Speci men Type: BLOOD SPECIMEN Ordering Facility: [facility] Address: [address] [place] [address] Performed By: #### 5 7021-8 #### [facility] CLIA [id number] [address] [place] [address] [place] Urea nitrogen [Mass/Vol] 24 mg/dL High 7-21 [facility] Comment on above: Order Comment: Speci men Type: BLOOD SPECIMEN Ordering Facility: [facility] Address: [address] [place] [address] Performed By: #### 5 7021-8 #### [facility] CLIA [id number] [address] [place] [address] [place] CBC panel Auto (Bld)on 11-04 Erythrocyte distribution width (RBC) [Ratio] 13.5 % Normal 11.5-15.0 [facility] Comment on above: Order Comment: Speci men Type: BLOOD SPECIMEN Ordering Facility: [facility] Address: [address] [place] [address] Performed By: #### 5 7021-8 #### [facility] CLIA [id number] [address] [place] [address] [place] Hematocrit (Bld) [Volume fraction] 28.7 % Low 36.0-46.0 [facility] Comment on above: Order Comment: Speci men Type: BLOOD SPECIMEN Ordering Facility: [facility] Address: [address] [place] [address] Performed By: #### 5 7021-8 #### [facility] CLIA [id number] [address] [place] [address] [place] Hemoglobin (Bld) [Mass/Vol] 9.7 g/dL Low 11.5-15.5 [facility] Comment on above: Order Comment: Speci men Type: BLOOD SPECIMEN Ordering Facility: [facility] Address: [address] [place] [address] Performed By: #### 5 7021-8 #### [facility] CLIA [id number] [address] [place] [address] [place] MCH (RBC) [Entitic mass] 31.9 pg Normal 26.0-34.0 [facility] Comment on above: Order Comment: Speci men Type: BLOOD SPECIMEN Ordering Facility: [facility] Address: [address] [place] [address] Performed By: #### 5 7021-8 #### [facility] CLIA [id number] [address] [place] [address] [place] MCHC (RBC) [Mass/Vol] 33.8 g/dL Normal 30.5-36.0 [facility] Comment on above: Order Comment: Speci men Type: BLOOD SPECIMEN Ordering Facility: [facility] Address: [address] [place] [address] Performed By: #### 5 7021-8 #### [facility] CLIA [id number] [address] [place] [address] [place] MCV (RBC) [Entitic vol] 94.4 fL Normal 80.0-100.0 [facility] Comment on above: Order Comment: Speci men Type: BLOOD SPECIMEN Ordering Facility: [facility] Address: [address] [place] [address] Performed By: #### 5 7021-8 #### [facility] CLIA [id number] [address] [place] [address] [place] Nucleated RBC (Bld) [#/Vol] 10*3/uL Normal <0.01 [facility] Comment on above: Order Comment: Speci men Type: BLOOD SPECIMEN Ordering Facility: [facility] Address: [address] [place] [address] Performed By: #### 5 7021-8 #### [facility] CLIA [id number] [address] [place] [address] [place] Platelet mean volume (Bld) [Entitic vol] 11.2 fL Normal 9.0-12.7 [facility] Comment on above: Order Comment: Speci men Type: BLOOD SPECIMEN Ordering Facility: [facility] Address: [address] [place] [address] Performed By: #### 5 7021-8 #### [facility] CLIA [id number] [address] [place] [address] [place] Platelets (Bld) [#/Vol] 150 10*3/uL Normal 150-400 [facility] Comment on above: Order Comment: Speci men Type: BLOOD SPECIMEN Ordering Facility: [facility] Address: [address] [place] [address] Performed By: #### 5 7021-8 #### [facility] CLIA [id number] [address] [place] [address] [place] RBC (Bld) [#/Vol] 3.04 10*6/uL Low 3.90-5.20 [facility] Comment on above: Order Comment: Speci men Type: BLOOD SPECIMEN Ordering Facility: [facility] Address: [address] [place] [address] Performed By: #### 5 7021-8 #### [facility] CLIA [id number] [address] [place] [address] [place] WBC (Bld) [#/Vol] 5.99 10*3/uL Normal 3.70-11.00 [facility] Comment on above: Order Comment: Speci men Type: BLOOD SPECIMEN Ordering Facility: [facility] Address: [address] [place] [address] Performed By: #### 5 7021-8 #### [facility] CLIA [id number] [address] [place] [address] [place] Erythrocyte distribution width (RBC) [Ratio] 13.6 % Normal 11.5-15.0 [facility] Comment on above: Order Comment: Speci men Type: BLOOD SPECIMEN Ordering Facility: [facility] Address: [address] [place] [address] Performed By: #### 5 7021-8 #### [facility] CLIA [id number] [address] [place] [address] [place] Hematocrit (Bld) [Volume fraction] 28.7 % Low 36.0-46.0 [facility] Comment on above: Order Comment: Speci men Type: BLOOD SPECIMEN Ordering Facility: [facility] Address: [address] [place] [address] Performed By: #### 5 7021-8 #### [facility] CLIA [id number] [address] [place] [address] [place] Hemoglobin (Bld) [Mass/Vol] 9.7 g/dL Low 11.5-15.5 [facility] Comment on above: Order Comment: Speci men Type: BLOOD SPECIMEN Ordering Facility: [facility] Address: [address] [place] [address] Performed By: #### 5 7021-8 #### [facility] CLIA [id number] [address] [place] [address] [place] MCH (RBC) [Entitic mass] 31.8 pg Normal 26.0-34.0 [facility] Comment on above: Order Comment: Speci men Type: BLOOD SPECIMEN Ordering Facility: [facility] Address: [address] [place] [address] Performed By: #### 5 7021-8 #### [facility] CLIA [id number] [address] [place] [address] [place] MCHC (RBC) [Mass/Vol] 33.8 g/dL Normal 30.5-36.0 [facility] Comment on above: Order Comment: Speci men Type: BLOOD SPECIMEN Ordering Facility: [facility] Address: [address] [place] [address] Performed By: #### 5 7021-8 #### [facility] CLIA [id number] [address] [place] [address] [place] MCV (RBC) [Entitic vol] 94.1 fL Normal 80.0-100.0 [facility] Comment on above: Order Comment: Speci men Type: BLOOD SPECIMEN Ordering Facility: [facility] Address: [address] [place] [address] Performed By: #### 5 7021-8 #### [facility] CLIA [id number] [address] [place] [address] [place] Nucleated RBC (Bld) [#/Vol] 10*3/uL Normal <0.01 [facility] Comment on above: Order Comment: Speci men Type: BLOOD SPECIMEN Ordering Facility: [facility] Address: [address] [place] [address] Performed By: #### 5 7021-8 #### [facility] CLIA [id number] [address] [place] [address] [place] Platelet mean volume (Bld) [Entitic vol] 11.1 fL Normal 9.0-12.7 [facility] Comment on above: Order Comment: Speci men Type: BLOOD SPECIMEN Ordering Facility: [facility] Address: [address] [place] [address] Performed By: #### 5 7021-8 #### [facility] CLIA [id number] [address] [place] [address] [place] Platelets (Bld) [#/Vol] 152 10*3/uL Normal 150-400 [facility] Comment on above: Order Comment: Speci men Type: BLOOD SPECIMEN Ordering Facility: [facility] Address: [address] [place] [address] Performed By: #### 5 7021-8 #### [facility] CLIA [id number] [place] [address] [place] RBC (Bld) [#/Vol] 3.05 10*6/uL Low 3.90-5.20 [facility] Comment on above: Order Comment: Speci men Type: BLOOD SPECIMEN Ordering Facility: [facility] Address: [address] [place] [address] Performed By: #### 5 7021-8 #### [facility] CLIA [id number] [address] [place] [address] [place] WBC (Bld) [#/Vol] 6.94 10*3/uL Normal 3.70-11.00 [facility] Comment on above: Order Comment: Speci men Type: BLOOD SPECIMEN Ordering Facility: [facility] Address: [address] [place] [address] Performed By: #### 5 7021-8 #### [facility] CLIA [id number] [address] [place] [address] [place] CONSULTon 11-05-2023 CONSULT HNO ID: [id number] Author: GRANT KING MD Service: Vascular Surgery Author Type: Physician Type: Consults Filed: 11/05/2023 21:46 Note Text: [facility]ULAR [facility] INITIAL CONSULTVascular Surgery Consult Note Service Date: 11/05/2023 Admit Date: 11/04/2023 Service Time: 11:53 AM LOS: 0 Vascular Physician: Grant King MD Subjective Chief Complaint: R groin pseudoaneurysm HPI: Cece Hubbard is a 78 year old female with history significant for CAD, CKD, HTN, HLD, A-fib on Eliquis who recently underwent a right heart catheterization on 10/31/2023 who presented to the ED on 11/03 with pain, bruising over her right groin proximal thigh. During her right heart catheterization, she underwent right femoral artery access with a maximum sheath diameter of 7 Gabonese. There were no complications at the end of the case from an access site standpoint. Following discharge, she resumed her aspirin and Eliquis. When she represented, she underwent right groin ultrasound which revealed a right femoral pseudoaneurysm measuring 2.4 x 3.1 x 3.0 cm with a 0.7 cm neck track. Vascular surgery was asked to weigh in on management of the pseudoaneurysm. A brief exam was done on admission which revealed no necrotic overlying skin changes, however we were able to palpate a pulsatile mass in the right groin. She had preserved signals in the bilateral lower extremities. Today, the patient underwent ultrasound-guided compression of the pseudoaneurysm with successful thrombosis. My examination, and am unable to palpate a pulsatile mass at this point. She again has palpable DP/PT in the bilateral lower extremities. The skin changes include bruising from the right groin down to the proximal right thigh with decent bone, however no necrotic skin changes. On ultrasound during the compression, the patient was also noted to have a small AVF communicating between the common femoral artery and the common femoral vein. Compression not successful in closing of his AVF. PAST MEDICAL HISTORY Diagnosis Date Aortic insufficiency CAD (coronary artery disease) 04/24/2022 Chronic kidney disease Depression GERD (gastroesophageal reflux disease) HTN (hypertension) Hyperlipidemia Hypothyroidism Knee pain Mitral regurgitation Pseudophakia of both eyes Seasonal allergic rhinitis [...] Types: Cigarettes Quit date: 04/28/1990 Years since quittin.5 Smokeless tobacco: Former Substance Use Topics Alcohol use: No Drug use: No hydrALAZINE (APRESOLINE) 25 mg tablet, Take 1 tablet by mouth two times a day., Disp: 180 tablet, Rfl: 0, 11/04/2023 amiodarone (PACERONE) 200 mg tablet, Take 0.5 tablets by mouth once daily., Disp: , Rfl: 0, 11/04/2023 potassium chloride (K-TAB) 10 mEq tablet, Take 1 tablet by mouth once daily., Disp: 30 tablet, Rfl: 2, 11/04/2023 furosemide (LASIX) 20 mg tablet, Take 1 tablet by mouth once daily., Disp: 30 tablet, Rfl: 0, 11/04/2023 ELIQUIS 5 mg tab(s), Take 1 tablet by mouth every 12 hours., Disp: , Rfl: , 11/04/2023 isosorbide mononitrate ER (IMDUR) 30 mg 24 hr tablet, Take 30 mg by mouth., Disp: , Rfl: , 11/04/2023 liothyronine (CYTOMEL) 5 mcg tablet, Take 1 tablet by mouth every afternoon., Disp: , Rfl: , 11/04/2023 escitalopram oxalate (LEXAPRO) 10 mg tablet, Take 1 tablet by mouth every afternoon., Disp: , Rfl: , 11/04/[address] (PROTONIX) 40 mg tablet, Take 40 mg by mouth once daily., Disp: , Rfl: , 11/04/2023 atorvastatin (LIPITOR) 40 mg tablet, Take 40 mg by mouth once daily., Disp: , Rfl: , 11/04/2023 krill oil 500 mg cap, , Disp: , Rfl: , 11/04/2023 ubidecarenone Q-10 (COENZYME Q-10) 10 mg cap, , Disp: , Rfl: , 11/04/2023 BIOTIN ORAL, , Disp: , Rfl: , 11/04/2023 vit A/vit C/vit E/zinc/copper (PRESERVISION AREDS ORAL), , Disp: , Rfl: , 11/04/2023 traMADol (ULTRAM) 50 mg tablet, Take 50 mg by mouth three times daily as needed., Disp: , Rfl: , 11/03/2023 aspirin 81 mg cap, Take by mouth., Disp: , Rfl: , 11/04/2023 VIT C/VIT E/LUTEIN/MIN/OMEGA-3 (OCUVITE ORAL), Take by mouth., Disp: , Rfl: , 11/04/2023 Multivitamin capsule, Take 1 capsule by mouth once daily. , Disp: , Rfl: , 11/04/2023 TYRVAYA 0.03 mg/spra (more content not included)... Normal [facility] CONSULT HNO ID: [id number] Author: VASYL COVARRUBIAS MD Service: Cardiovascular Medicine Author Type: Physician Type: Consults Filed: 11/06/2023 10:40 Note Text: CARDIOLOGY SERVICE: CONSULT SERVICE DATE: 11/05/2023 Time: 6:46 AM CONSULTING PHYSICIAN: Vasyl Covarrubias [facility] PCP: Demarco Newell MD ATTENDING: Delisa Holman MD REASON FOR CONSULT: Cardiology Evaluation ASSESSMENT: Admitted with right groin pain and hematoma will check ultrasound Recent admission for with worsening dyspnea -patient says it became a problem when she started amiodarone HFpEF, moderately severe MR ([facility] [place] 07/2023: MR ERO 0.33 cm2, MR volume 67cm.)and +2 AI at [facility], says was being considered for MVR LAY (resolved ) on CKD Paroxysmal A-fib diagnosed 09/2023, started Amiodarone, has been NSR during this hospital stay. Low-dose BB metoprolol 25 twice daily was attempted for a couple of days but significant bradycardia in the 40s [not symptomatic] and therefore BB discontinued AC Eliquis CAD PCI LAD Synergy 03/2022 ; PCI RCA Synergy 3.0 x 20 in 05/2020, [place] stress test reported normal 07/2023. Heart cath 10/31/2023: 70% ISR of proximal RCA stent Hypertension Hyperlipidemia, LDL 37 in 10/2023, at home on statin CKD ~ 1.4 Thyroid disease, BMI 32, GERD, depression anxiety, back and knee surgeries Card meds [employer]: Eliquis 5 twice daily, amiodarone 100 daily, Losartan 100 daily, Imdur 30 daily, hydralazine 25 twice daily, Lasix 20 daily, K-Dur 10 daily, Lipitor 40 daily PLAN: Hold Eliquis Ultrasound of the right groin Monitor hemoglobin Above was discussed with pt, family at bedside if available and with nursing staff or physician. Thank you Delisa Milan MD for the privilege in participating in Ms. Hubbard's care. Please do not hesitate to call me with any questions. CHIEF COMPLAINT: Femoral artery pseudo-aneurysm, right (HCC) [I72.4] 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] HISTORY OF PRESENT ILLNESS: Ms. Hubbard is a 78 year old female is referred to cardiology consult. Patient was admitted with . MEDICATIONS: Prior to Admission Medications Prescriptions Last Dose Informant Patient Reported? Taking? BIOTIN ORAL 11/04/2023 Yes Yes ELIQUIS 5 mg tab(s) 11/04/2023 Yes Yes Sig: Take 1 tablet by mouth every 12 hours. Multivitamin capsule 11/04/2023 Yes Yes Sig: Take 1 capsule by mouth once daily. TYRVAYA 0.03 mg/spray nasal spray Yes No Sig: Instill 1 spray into both nostrils twice a day VIT C/VIT E/LUTEIN/MIN/OMEGA-3 (OCUVITE ORAL) 11/04/2023 Yes Yes Sig: Take by mouth. amiodarone (PACERONE) 200 mg tablet 11/04/2023 No Yes Sig: Take 0.5 tablets by mouth once daily. aspirin 81 mg cap 11/04/2023 Yes Yes Sig: Take by mouth. atorvastatin (LIPITOR) 40 mg tablet 11/04/2023 Yes Yes Sig: Take 40 mg by mouth once daily. escitalopram oxalate (LEXAPRO) 10 mg tablet 11/04/2023 Yes Yes Sig: Take 1 tablet by mouth every afternoon. furosemide (LASIX) 20 mg tablet 11/04/2023 No Yes Sig: Take 1 tablet by mouth once daily. hydrALAZINE (APRESOLINE) 25 mg tablet 11/04/2023 No Yes Sig: Take 1 tablet by mouth two times a day. isosorbide mononitrate ER (IMDUR) 30 mg 24 hr tablet 11/04/2023 Yes Yes Sig: Take 30 mg by mouth. krill oil 500 mg cap 11/04/2023 Yes Yes liothyronine (CYTOMEL) 5 mcg tablet 11/04/2023 Yes Yes Sig: Take 1 tablet by mouth every afternoon. pantoprazole DR (PROTONIX) 40 mg tablet 11/04/2023 Yes Yes Sig: Take 40 mg by mouth once daily. potassium chloride (K-TAB) 10 mEq tablet 11/04/2023 No Yes Sig: Take 1 tablet by mouth once daily. traMADol (ULTRAM) 50 mg tablet 11/03/2023 Yes Yes Sig: Take 50 mg by mouth three times daily as needed. ubidecarenone Q-10 (COENZYME Q-10) 10 mg cap 11/04/2023 Yes Yes vit A/vit C/vit E/zinc/copper (PRESERVISION AREDS ORAL) 11/04/2023 Yes Yes Facility-Administered Medications: None Current Facility-Administered Medications Medication Dose Route Frequency amiodarone 100 mg tab(s) (PACERONE) 100 mg ORAL DAILY atorvastatin 40 mg tab(s) (LIPITOR) 40 mg ORAL DAILY hydrALAZINE 25 mg tab(s) (APRESOLINE) 25 mg ORAL BID furosemide 20 mg tab(s) (LASIX) 20 mg ORAL DAILY potassium chloride ER 10 mEq tab(s) (KLOR-CON M10) 10 mEq ORAL DAILY pantoprazole DR 40 mg tab(s) (PROTONIX) 40 mg ORAL DAILY escitalopram oxalate 10 mg tab(s) (LEXAPRO) 10 mg ORAL DAILY liothyronine 5 mcg tab(s) (CYTOMEL) 5 mcg ORAL DAILY wDINNER isosorbide mononitrate ER 30 mg tab(s) (IMDUR) 30 mg ORAL DAILY NaCl 0.9% iv flush bag 20 mL INTRAVENOUS PRN acetaminophen 650 mg tab(s) (TYLENOL) 650 mg ORAL q 6 H PRN ALLERGIES: ALLERGIES Allergen Reactions Serina Inhibitors Rash, Hives Amlodipine Swelling Codeine Vomiting Dilaudid [Hydromorp* Vomiting Meperidine Vomiting Morphine Vomiting Neurontin [Gabapent* Mental Status Change HISTORY: PAST MEDICAL HISTORY Diagnosis Date Aortic insufficiency CAD (coronary artery disease) 04/24/2022 Chronic kidney dis (more content not included)... Normal [facility] HISTORY PHYSICALon HISTORY PHYSICAL HNO ID: [id number] Author: SUNITA WOO APRN.UTILIZATION SPECIALIST Service: General Internal Medicine Author Type: Nurse Practitioner Type: H&P Filed: 11/05/2023 01:22 Note Text: HISTORY AND PHYSICAL EXAMINATION SERVICE DATE: 11/05/2023 SERVICE TIME: 1:07 AM PRIMARY CARE PHYSICIAN: Demarco Newell MD Subjective CHIEF COMPLAINT: Hematoma HPI: This is a very pleasant 78 year old female who presents with femoral artery, pseudoaneurysm. Her past medical history is significant of CAD s/p PCI to LAD and RCA, CKD, GERD, A-fib on Eliquis, hypertension, hyperlipidemia, hypothyroidism. Patient was recently admitted on 10/26/2023 to 11/02/2023 with shortness of breath, was seen by cardiology, s/p heart cath on 10/31/2023. Per chart review had a small right thigh hematoma improving on discharge. Cece Hubbard presents with right leg pain and swelling. She reports she had a heart cath done, since then developed hematoma, initially improving. She resumed Eliquis and aspirin on discharge. Since discharge she felt right leg was painful to touch and was painful to walk. She noted a small knot at the right groin. She describes pain as feeling tightness. Season changes. Patient had an outpatient ultrasound done, concerning for femoral aneurysm. The last time she took Eliquis and aspirin was on 11/04/2019 4 in the morning. Denies fevers, chills, chest pain, palpitations, dizziness, vision/hearing changes, headaches, cough, sob, numbness, tingling, abdominal pain, dysuria, diarrhea, constipation, blood in stool or urine. Denies smoking, alcohol use, illicit drug use Code status discussed with patient -full code FUNCTIONAL STATUS: Independent PAST MEDICAL HISTORY Diagnosis Date Aortic insufficiency CAD (coronary artery disease) 04/24/2022 Chronic kidney disease Depression GERD (gastroesophageal reflux disease) HTN (hypertension) Hyperlipidemia Hypothyroidism Knee pain Mitral regurgitation Pseudophakia of both eyes Seasonal allergic rhinitis [...] Types: Cigarettes Quit date: 04/28/1990 Years since quittin.5 Smokeless tobacco: Former Substance Use Topics Alcohol use: No Drug use: No hydrALAZINE (APRESOLINE) 25 mg tablet, Take 1 tablet by mouth two times a day., Disp: 180 tablet, Rfl: 0, 11/04/2023 amiodarone (PACERONE) 200 mg tablet, Take 0.5 tablets by mouth once daily., Disp: , Rfl: 0, 11/04/2023 potassium chloride (K-TAB) 10 mEq tablet, Take 1 tablet by mouth once daily., Disp: 30 tablet, Rfl: 2, 11/04/2023 furosemide (LASIX) 20 mg tablet, Take 1 tablet by mouth once daily., Disp: 30 tablet, Rfl: 0, 11/04/2023 ELIQUIS 5 mg tab(s), Take 1 tablet by mouth every 12 hours., Disp: , Rfl: , 11/04/2023 isosorbide mononitrate ER (IMDUR) 30 mg 24 hr tablet, Take 30 mg by mouth., Disp: , Rfl: , 11/04/2023 liothyronine (CYTOMEL) 5 mcg tablet, Take 1 tablet by mouth every afternoon., Disp: , Rfl: , 11/04/2023 escitalopram oxalate (LEXAPRO) 10 mg tablet, Take 1 tablet by mouth every afternoon., Disp: , Rfl: , 11/04/[address] (PROTONIX) 40 mg tablet, Take 40 mg by mouth once daily., Disp: , Rfl: , 11/04/2023 atorvastatin (LIPITOR) 40 mg tablet, Take 40 mg by mouth once daily., Disp: , Rfl: , 11/04/2023 krill oil 500 mg cap, , Disp: , Rfl: , 11/04/2023 ubidecarenone Q-10 (COENZYME Q-10) 10 mg cap, , Disp: , Rfl: , 11/04/2023 BIOTIN ORAL, , Disp: , Rfl: , 11/04/2023 vit A/vit C/vit E/zinc/copper (PRESERVISION AREDS ORAL), , Disp: , Rfl: , 11/04/2023 traMADol (ULTRAM) 50 mg tablet, Take 50 mg by mouth three times daily as needed., Disp: , Rfl: , 11/03/2023 aspirin 81 mg cap, Take by mouth., Disp: , Rfl: , 11/04/2023 VIT C/VIT E/LUTEIN/MIN/OMEGA-3 (OCUVITE ORAL), Take by mouth., Disp: , Rfl: , 11/04/2023 Multivitamin capsule, Take 1 capsule by mouth once daily. , Disp: , Rfl: , 11/04/2023 TYRVAYA 0.03 mg/spray nasal spray, Instill 1 spray into both nostrils twice a day, Disp: , Rfl: ALLERGIES Allergen Reactions Serina Inhibitors Rash, Hives Amlodipine Swelling Codeine Vomiting Dilaudid [Hydromorp* Vomiting Meperidine Vomiting Morphine Vomiting Neurontin [Gabapent* Mental Status Change COMPLETE REVIEW OF SYSTEMS: GENERAL: No weight loss, malaise or fevers (more content not included)... Normal [facility] GROIN UNL VAS LABon 11-04 GROIN UNL VAS LAB Non-Invasive Vascul ar Laboratory [facility] Lower Extremity Arterial Duplex for Pseudoaneurysm Unilateral - Right Date of service/time: 11/05/2023 8:26:46 AM Name: CECE HUBBARD Date of : 1945 Age: 78 years Gender: F TECHNIQUE -------- An arterial duplex ultrasound examination was performed, including grayscale imaging and color Doppler and spectral Doppler examination of the below mentioned arteries. FINDINGS -------- RIGHT SIDE Superficial femoral artery proximal : PSV: 117 cm/s. Common femoral vein: Doppler: turbulent flow. Compression: normal. IMPRESSION RIGHT SIDE Negative for deep vein thrombosis and hematoma. Common femoral artery arteriovenous fistula noted . Pseudoaneurysm arising from common femoral artery at proximal thigh. Chamber 1 measures 2.4 cm x 3.1 cm x 3.0 cm. Pseudoaneurysm tract width measures 0.7 cm. Ultrasound guided compression repair performed for 90 min with success. Technologist: Sheldon Galicia RVT Frankie Matamoros T Ordering physician: VASYL COVARRUBIAS Interpreting physician: Dianne Schrader MD, RPADRIANA Final CC [employer] Image : [id number] See Link below for Image Normal [facility] CBC W Auto Differential pane l (Bld)on 11-04-2023 Basophils (Bld) [#/Vol] 0.04 10*3/uL Normal <0.11 [facility] Comment on above: Order Comment: Speci men Type: BLOOD SPECIMENOrdering Facility: [facility] Address: [address] [place] [address] Performed By: #### 5 7021-8 ####SAGE LABORATORYCLIA [id number] [place] [address] [place] Basophils/100 WBC (Bld) 0.5 % Normal [facility] Comment on above: Order Comment: Speci men Type: BLOOD SPECIMENOrdering Facility: [facility] Address: [address] [place] [address] Performed By: #### 5 7021-8 ####SAGE LABORATORYCLIA [id number] [place] [id number] [place] Differential cell count method Nom (Bld) Auto Normal [facility] Comment on above: Order Comment: Speci men Type: BLOOD SPECIMENOrdering Facility: [facility] Address: [address] [place] [address] Performed By: #### 5 7021-8 ####SAGE LABORATORYCLIA [id number] [place] [id number] [place] Eosinophils (Bld) [#/Vol] 0.14 10*3/uL Normal <0.46 [facility] Comment on above: Order Comment: Speci men Type: BLOOD SPECIMENOrdering Facility: [facility] Address: [address] [place] [address] Performed By: #### 5 7021-8 ####SAGE LABORATORYCLIA [id number] [place] [address] [place] Eosinophils/100 WBC (Bld) 1.9 % Normal [facility] Comment on above: Order Comment: Speci men Type: BLOOD SPECIMENOrdering Facility: [facility] Address: [address] [place] [address] Performed By: #### 5 7021-8 ####SAGE LABORATORYCLIA [id number] [place] [address] [place] Erythrocyte distribution width (RBC) [Ratio] 13.3 % Normal 11.5-15.0 [facility] Comment on above: Order Comment: Speci men Type: BLOOD SPECIMENOrdering Facility: [facility] Address: [address] [place] [address] Performed By: #### 5 7021-8 ####SAGE LABORATORYCLIA [id number] [place] [address] [place] Hematocrit (Bld) [Volume fraction] 33.4 % Low 36.0-46.0 [facility] Comment on above: Order Comment: Speci men Type: BLOOD SPECIMENOrdering Facility: [facility] Address: [address] [place] [address] Performed By: #### 5 7021-8 ####SAGE LABORATORYCLIA [id number] [place] [address] [place] Hemoglobin (Bld) [Mass/Vol] 11.1 g/dL Low 11.5-15.5 [facility] Comment on above: Order Comment: Speci men Type: BLOOD SPECIMENOrdering Facility: [facility] Address: [address] [place] [address] Performed By: #### 5 7021-8 ####SAGE LABORATORYCLIA [id number] [place] [id number] [place] Immature granulocytes (Bld) [#/Vol] 10*3/uL Normal <0.10 [facility] Comment on above: Order Comment: Speci men Type: BLOOD SPECIMENOrdering Facility: [facility] Address: [address] [place] [address] Performed By: #### 5 7021-8 ####[facility] LABORATORYCLIA [id number] [place] [id number] [place] Immature granulocytes/100 WBC (Bld) 0.3 % Normal [facility] Comment on above: Order Comment: Speci men Type: BLOOD SPECIMENOrdering Facility: [facility] Address: [address] [place] [address] Performed By: #### 5 7021-8 ####[facility] LABORATORYCLIA [id number] [place] [address] [place] Lymphocytes (Bld) [#/Vol] 1.20 10*3/uL Normal 1.00-4.00 [facility] Comment on above: Order Comment: Speci men Type: BLOOD SPECIMENOrdering Facility: [facility] Address: [address] [place] [address] Performed By: #### 5 7021-8 ####SAGE LABORATORYCLIA [id number] [place] [address] [place] Lymphocytes/100 WBC (Bld) 16.3 % Normal [facility] Comment on above: Order Comment: Speci men Type: BLOOD SPECIMENOrdering Facility: [facility] Address: [address] [place] [address] Performed By: #### 5 7021-8 ####SAGE LABORATORYCLIA [id number] [place] [address] [place] MCH (RBC) [Entitic mass] 31.3 pg Normal 26.0-34.0 [facility] Comment on above: Order Comment: Speci men Type: BLOOD SPECIMENOrdering Facility: [facility] Address: [address] [place] [address] Performed By: #### 5 7021-8 ####[facility] LABORATORYCLIA [id number] [place] [address] [place] MCHC (RBC) [Mass/Vol] 33.2 g/dL Normal 30.5-36.0 [facility] Comment on above: Order Comment: Speci men Type: BLOOD SPECIMENOrdering Facility: [facility] Address: [address] [place] [address] Performed By: #### 5 7021-8 ####[facility] LABORATORYCLIA [id number] [place] [id number] [place] MCV (RBC) [Entitic vol] 94.1 fL Normal 80.0-100.0 [facility] Comment on above: Order Comment: Speci men Type: BLOOD SPECIMENOrdering Facility: [facility] Address: [address] [place] [address] Performed By: #### 5 7021-8 ####[facility] LABORATORYCLIA [id number] [place] [address] [place] Monocytes (Bld) [#/Vol] 0.78 10*3/uL Normal <0.87 [facility] Comment on above: Order Comment: Speci men Type: BLOOD SPECIMENOrdering Facility: [facility] Address: [address] [place] [address] Performed By: #### 5 7021-8 ####[facility] LABORATORYCLIA [id number] [place] [address] [place] Monocytes/100 WBC (Bld) 10.6 % Normal [facility] Comment on above: Order Comment: Speci men Type: BLOOD SPECIMENOrdering Facility: [facility] Address: [address] [place] [address] Performed By: #### 5 7021-8 ####[facility] LABORATORYCLIA [id number] [place] [address] [place] Neutrophils (Bld) [#/Vol] 5.17 10*3/uL Normal 1.45-7.50 [facility] Comment on above: Order Comment: Speci men Type: BLOOD SPECIMENOrdering Facility: [facility] Address: [address] [place] [address] Performed By: #### 5 7021-8 ####[facility] LABORATORYCLIA [id number] [place] [id number] [place] Neutrophils/100 WBC (Bld) 70.4 % Normal [facility] Comment on above: Order Comment: Speci men Type: BLOOD SPECIMENOrdering Facility: [facility] Address: [address] [place] [address] Performed By: #### 5 7021-8 ####[facility] LABORATORYCLIA [id number] [place] [id number] [place] Nucleated RBC (Bld) [#/Vol] 10*3/uL Normal <0.01 [facility] Comment on above: Order Comment: Speci men Type: BLOOD SPECIMENOrdering Facility: [facility] Address: [address] [place] [address] Performed By: #### 5 7021-8 ####O[facility] LABORATORYCLIA [id number] [place] [address] [place] Nucleated RBC/100 WBC (Bld) [Ratio] 0.0 /100 WBC Normal [facility] Comment on above: Order Comment: Speci men Type: BLOOD SPECIMENOrdering Facility: [facility] Address: [address] [place] [address] Performed By: #### 5 7021-8 ####ODELL LABORATORYCLIA [id number] [place] [address] [place] Platelet mean volume (Bld) [Entitic vol] 11.3 fL Normal 9.0-12.7 [facility] Comment on above: Order Comment: Speci men Type: BLOOD SPECIMENOrdering Facility: [facility] Address: [address] [place] [address] Performed By: #### 5 7021-8 ####ODELL LABORATORYCLIA [id number] [place] [id number] [place] Platelets (Bld) [#/Vol] 187 10*3/uL Normal 150-400 [facility] Comment on above: Order Comment: Speci men Type: BLOOD SPECIMENOrdering Facility: [facility] Address: [address] [place] [address] Performed By: #### 5 7021-8 ####ODELL LABORATORYCLIA [id number] [place] [id number] [place] RBC (Bld) [#/Vol] 3.55 10*6/uL Low 3.90-5.20 [facility] Comment on above: Order Comment: Speci men Type: BLOOD SPECIMENOrdering Facility: [facility] Address: [address] [place] [address] Performed By: #### 5 7021-8 ####[facility] LABORATORYCLIA [id number] [place] [address] [place] WBC (Bld) [#/Vol] 7.35 10*3/uL Normal 3.70-11.00 [facility] Comment on above: Order Comment: Speci men Type: BLOOD SPECIMENOrdering Facility: [facility] Address: [address] [place] [address] Performed By: #### 5 7021-8 ####[facility] LABORATORYCLIA [id number] [place] [address] [place] Comprehensive metabolic 2000 panelon 11-04-2023 Albumin [Mass/Vol] 4.3 g/dL Normal 3.9-4.9 [facility] Comment on above: Order Comment: Speci men Type: BLOOD SPECIMEN [facility] Address: [address] [place] [address] Performed By: #### 5 7021-8 #### [facility] CLIA [id number] [address] [place] [address] [place] ALP [Catalytic activity/Vol] 107 U/L Normal 34-123 [facility] Comment on above: Order Comment: Speci men Type: BLOOD SPECIMEN [facility] Address: [address] [place] [address] Performed By: #### 5 7021-8 #### [facility] CLIA [id number] [address] [place] [address] [place] ALT [Catalytic activity/Vol] 12 U/L Normal 7-38 [facility] Comment on above: Order Comment: Speci men Type: BLOOD SPECIMEN [facility] Address: [address] [place] [address] Performed By: #### 5 7021-8 #### [facility] CLIA [id number] [place] [address] [place] Anion gap [Moles/Vol] 12 mmol/L Normal 9-18 [facility] Comment on above: Order Comment: Speci men Type: BLOOD SPECIMEN [facility] Address: [address] [place] [address] Performed By: #### 5 7021-8 #### [facility] CLIA [id number] [address] [place] [address] [place] AST [Catalytic activity/Vol] 13 U/L Normal 13-35 [facility] Comment on above: Order Comment: Speci men Type: BLOOD SPECIMEN [facility] Address: [address] [place] [address] Performed By: #### 5 7021-8 #### [facility] CLIA [id number] [address] [place] [address] [place] Bilirubin [Mass/Vol] 0.9 mg/dL Normal 0.2-1.3 [facility] Comment on above: Order Comment: Speci men Type: BLOOD SPECIMEN [facility] Address: [address] [place] [address] Performed By: #### 5 7021-8 #### [facility] CLIA [id number] [address] [place] [address] [place] Calcium [Mass/Vol] 9.4 mg/dL Normal 8.5-10.2 [facility] Comment on above: Order Comment: Speci men Type: BLOOD SPECIMEN [facility] Address: [address] [place] [address] Performed By: #### 5 7021-8 #### [facility] CLIA [id number] [address] [place] [address] [place] Chloride [Moles/Vol] 102 mmol/L Normal 97-105 [facility] Comment on above: Order Comment: Speci men Type: BLOOD SPECIMEN [facility] Address: [address] [place] [address] Performed By: #### 5 7021-8 #### [facility] CLIA [id number] [address] [place] [address] [place] CO2 [Moles/Vol] 26 mmol/L Normal 22-30 [facility] Comment on above: Order Comment: Tremayne bill Type: BLOOD SPECIMEN [facility] Address: [address] [place] [address] Performed By: #### 5 7021-8 #### [facility] CLIA [id number] [place] [address] [place] Creatinine [Mass/Vol] 1.45 mg/dL High 0.58-0.96 [facility] Comment on above: Order Comment: Tremayne men Type: BLOOD SPECIMEN [facility] Address: [address] [place] [address] Performed By: #### 5 7021-8 #### [facility] CLIA [id number] [address] [place] [address] [place] Creatinine and Glomerular filtration rate.predicted panel (S/P/Bld) 37 mL/min/1.73m??? Low >=60 [facility] Comment on above: Order Comment: Tremayne bill Type: BLOOD SPECIMEN [facility] Address: [address] [place] [address] Result Comment: Amy mated Glomerular Filtration Rate [...] accurately reflect actual GFR. Performed By: #### 5 7021-8 #### [facility] CLIA [id number] [place] [address] [place] Glucose [Mass/Vol] 99 mg/dL Normal 74-99 [facility] Comment on above: Order Comment: Tremayne fly Type: BLOOD SPECIMEN [facility] Address: [address] [place] [address] Result Comment: The [place] [employer] Association (ADA) provides guidance for cutoff [...] Standards of Medical Care in Diabetes 2016, [place] [employer]. Diabetes Care. 2016.39(Suppl 1). Performed By: #### 5 7021-8 #### [facility] CLIA [id number] [address] [place] [address] [place] Potassium [Moles/Vol] 3.8 mmol/L Normal 3.7-5.1 [facility] Comment on above: Order Comment: Tremayne bill Type: BLOOD SPECIMEN [facility] Address: [address] [place] [address] Performed By: #### 5 7021-8 #### [facility] CLIA [id number] [address] [place] [address] [place] Protein [Mass/Vol] 6.7 g/dL Normal 6.3-8.0 [facility] Comment on above: Order Comment: Zaki fly Type: BLOOD SPECIMEN [facility] Address: [address] [place] [address] Performed By: #### 5 7021-8 #### [facility] CLIA [id number] [address] [place] [address] [place] Sodium [Moles/Vol] 140 mmol/L Normal 136-144 [facility] Comment on above: Order Comment: Zaki men Type: BLOOD SPECIMEN [facility] Address: [address] [place] [address] Performed By: #### 5 7021-8 #### [facility] CLIA [id number] [address] [place] [address] [place] Urea nitrogen [Mass/Vol] 24 mg/dL High 7-21 [facility] Comment on above: Order Comment: Speci men Type: BLOOD SPECIMEN [facility] Address: [address] [place] [address] Performed By: #### 5 7021-8 #### [facility] [place] [id number] [place] ECG COMPLETEon 11-04-2023 ECG COMPLETE Ventricular Rate : 6 1 BPM Atrial Rate : 62 BPM P-R Interval : 154 ms QRS Duration : 88 ms Q-T Interval : 455 ms QTC Calculation(Bazett) : 459 ms Calculated P [place] : 62 degrees Calculated R [place] : 68 degrees Calculated T [place] : 42 degrees Sinus rhythm Minimal ST depression, diffuse leads Otherwise Normal ECG resigned december Confirmed by MD JARED, MALI ([id number]), senior editor SHELDON PLATT ([id number]) on 12/31/2023 9:08:34 AM NAME : CECE HUBBARD PID : [id number] : 1945 Gender : Female Race : ORD : [id number] Procedure Date : Nov 04 2023 20:26:04 Edit Date : Dec 31 2023 09:08:38 Diagnosis: Sinus rhythm Minimal ST depression, diffuse leads Otherwise Normal ECG resigned december Confirmed by MD COLEMAN ACHILLES ([id number]), senior editor SHELDON PLATT ([id number]) on 12/31/2023 9:08:34 AM Test Reason : Chest Pain Location : 402 : FVED SF Overread By : MD COLEMAN ACHILLES Edited By : SHELDON PLATT Referred By : , Acquired by : [id number], [facility] ED NOTEon 11-04-2023 ED NOTE HNO ID: [id number] Author: ALYSE MULLER, VIKTOR Service: ? Author Type: Registered Nurse Type: ED Notes Filed: 11/04/2023 17:49 Note Text: Bed: 68-ED Expected date: Expected time: Means of arrival: Comments: triage [facility] ED PROV NOTEon 11-04-2023 ED PROV NOTE HNO ID: [id number] Author: BENJAMIN WILLIS MD Service: Emergency Medicine Author Type: Physician Type: ED Provider Notes Filed: 11/04/2023 23:40 Note Text: ED Provider Note Patient Name: Cece Hubbard : 1945 SERVICE DATE: 11/04/23 History Patient presents with: Leg Pain: Pt reports right leg pain and had an ultrasound perfromed. [facility] ultrasound showed a blood clot in her leg. [facility] sent Hx of heart cath on Friday and released on Friday.pt is currently on a blood thinner HPI 78 year old female presents with right leg pain and swelling. The patient was recently admitted from 10/25-11/01, was discharged 2 days ago, came in for an evaluation for dyspnea on minimal exertions. During her stay she had a cardiac catheterization done, access was obtained through the right femoral artery. Eliquis was held 48 hours after her procedure. She resume Eliquis and aspirin. There was bruising/hematoma to the right groin that was noted while the patient admitted here. Since discharge she has felt a knot form below her access site, is painful to touch and is painful when she walks. The patient had an ultrasound done out of the hospital that was concerning for a femoral aneurysm. The last time the patient took Eliquis was this morning, took aspirin this morning. Normal sensation to her right foot PAST MEDICAL HISTORY Diagnosis Date Aortic insufficiency CAD (coronary artery disease) 04/24/2022 Chronic kidney disease Depression GERD (gastroesophageal reflux disease) HTN (hypertension) Hyperlipidemia Hypothyroidism Knee pain Mitral regurgitation Pseudophakia of both eyes Seasonal allergic rhinitis [...] Types: Cigarettes Quit date: 04/28/1990 Years since quittin.5 Smokeless tobacco: Former Substance and Sexual Activity Alcohol use: No Drug use: No Sexual activity: Not on file Comment: not asked ALLERGIES Allergen Reactions Serina Inhibitors Rash, Hives Amlodipine Swelling Codeine Vomiting Dilaudid [Hydromorp* Vomiting Meperidine Vomiting Morphine Vomiting Neurontin [Gabapent* Mental Status Change Review of Systems Constitutional: Negative for activity change, appetite change and fatigue. HENT: Negative for congestion. Eyes: Negative for visual disturbance. Respiratory: Negative for shortness of breath. Cardiovascular: Negative for chest pain and palpitations. Gastrointestinal: Negative for abdominal distention, abdominal pain, diarrhea, nausea and vomiting. Genitourinary: Negative for difficulty urinating. Musculoskeletal: Negative for arthralgias. Skin: Positive for color change. Negative for rash. Neurological: Negative for dizziness, weakness and numbness. Psychiatric/Behavioral: Negative for suicidal ideas. Physical Exam Vitals BP Pulse Temp Temp src Resp SpO2 Weight Height 11/04/23 1436 11/04/23 1436 11/04/23 1436 11/04/23 1436 11/04/23 1436 11/04/23 1436 11/04/23 1436 11/04/23 1436 147/77 72 36.3 ?C (97.3 ?F) Oral 17 99 % 84.4 kg (186 lb) 1.6 m (5' 3 ) Physical Exam Vitals and nursing note reviewed. Constitutional: General: She is not in acute distress. Comments: No distress HENT: Head: Atraumatic. Eyes: Pupils: Pupils are equal, round, and reactive to light. Cardiovascular: Rate and Rhythm: Normal rate and regular rhythm. Heart sounds: Murmur heard. Comments: Systolic murmur best heard at left lower sternal border Palpable left DP and PT pulse, palpable right DP and PT pulse Palpable right femoral pulse Pulmonary: Effort: Pulmonary effort is normal. No respiratory distress. Breath sounds: Normal breath sounds. No wheezing or rales. Comments: Clear lung sounds with no focal asymmetry Abdominal: General: Bowel sounds are normal. There is no distension. Palpations: Abdomen is soft. Tenderness: There is no abdominal tenderness. There is no guarding or rebound. Musculoskeletal: Cervical back: Neck supple. Comments: Right thigh compartments are soft Skin: Findings: No rash. Comments: Ecchymoses to the right groin and right thigh Palpable swollen area proximal right thigh, tender to palpation here Neurological: Mental Status: She is alert and oriented to perso (more content not included)... [facility] ED Triage Noteon 11-04-2023 ED Triage Note HNO ID: [id number] Author: HARRISON CHAUDHRY MD Service: ? Author Type: Physician Type: ED Triage Notes Filed: 11/04/2023 14:39 Note Text: ED INTAKE NOTE Patient Name: Cece Hubbard Service Date: 11/04/23 BRIEF HPI: Patient is a 78-year-old female who presents to the emergency department complaining of groin pain. She states that she had a cath done on Friday patient states that now she has some swelling in the groin and was sent for an ultrasound which showed a pseudoaneurysm and they told her to come here. BRIEF EXAM: Awake and Alert RRR CTAB INTAKE WORKUP: Imaging was done prehospital showed a pseudoaneurysm in the right groin. No diagnosis found. SIGNATURE: Harrison Chaudhry MD [facility] EKGon 11-04-2023 Electrocardiogram Ventricular Rate : 6 2 BPM Atrial Rate : 62 BPM P-R Interval : 158 ms QRS Duration : 90 ms Q-T Interval : 467 ms QTC Calculation(Bazett) : 475 ms Calculated P [place] : 65 degrees Calculated R [place] : 70 degrees Calculated T [place] : 56 degrees Sinus rhythm Borderline ST depression, diffuse leads Borderline ECG 2029 Confirmed by MD COLEMAN ACHILLES ([id number]), senior editor CHELSEA LOYA ([id number]) on 11/05/2023 10:31:06 AM NAME : CECE HUBBARD PID : [id number] : 1945 Gender : Female Race : ORD : Procedure Date : Nov 04 2023 20:28:19 Edit Date : Nov 05 2023 10:31:07 Diagnosis: Sinus rhythm Borderline ST depression, diffuse leads Borderline ECG 2029 Confirmed by MD COLEMAN ACHILLES ([id number]), senior editor CHELSEA LOYA ([id number]) on 11/05/2023 10:31:06 AM Test Reason : Location : 402 : ED 0532 Overread By : MD COLEMAN ACHILLES Edited By : CHELSEA LOYA Referred By : , Acquired by : [id number], [facility] CNDSon 11-02-2023 CNDS HNO ID: [id number] Author: ATA TOSCANO MD Service: General Internal Medicine Author Type: Nurse Practitioner Type: Discharge Summary Filed: 11/02/2023 14:41 Note Text: -- Attestation signed by Ata Toscano MD at 11/02/2023 2:41 PM Dorcas -- DISCHARGE SUMMARY PATIENT NAME: Cece Hubbard ADMISSION DATE: 10/26/2023 DISCHARGE DATE: 11/02/2023 Attending Physician: Ata Toscano MD Code Status: Full Code Highest Readmission Risk Score: 18 The 30 day readmissions risk score is derived from an internally validated risk model which evaluates patient level characteristics, utilization history, medication orders and lab results up until the day of discharge. Patients with a score of 40 or above are considered highest risk for readmission. Specific patient level drivers will be listed at the bottom of the summary. Transitions of Care Critical Issues MURPHY MEDICATION CHANGES Amiodarone 100mg daily Hydralazine 25mg twice daily Lasix 20mg daily Potassium 10mEq daily Imdur 30mg daily Eliquis 5mg twice daily Aspirin 81mg daily FOLLOW UP APPOINTMENTS: Cardiology, Nephrology, PCP LABS AND PROCEDURES PENDING AT DISCHARGE: Reason for Hospitalization/Principal Diagnosis: shortness of breath Hospital Course: 78-year-old female with a past medical history significant for hypertension, hyperlipidemia, hypothyroidism, heart failure preserved ejection fraction, CAD status post PCI to the LAD and RCA, moderate to severe mitral regurgitation and recent atrial fibrillation on Eliquis who presented to the emergency room with complaints of worsening shortness of breath, primarily with worsening dyspnea of minimal exertion. Of note, she follows with cardiology in [place] but has been seeking care at [facility] for symptomatic MR and evaluation for MVR with appointment scheduled 11/21/[address] Hermosillo. At presentation, CXR was normal. Serum creatinine mildly elevated at 1.6 from baseline ~ 1.3, EKG showed sinus rhythm. Admitted for cardiology evaluation. BNP 456 but not appearing fluid overloaded or in acute CHF. Patient's shortness of breath improved with supplemental oxygen and did not appear to be acute CHF. Seen by cardiology. Echo ordered and awaiting results. Request made for OSH Echo ([place]) for Cardiology to evaluate. Losartan on hold due to LAY. Continues on Amiodarone, Eliquis, Asprin, Statin, Imdur, Hydralazine, and PO lasix. 10/29/23 Cardiology recs to d/c Amiodarone. Based on the results of the echo we will consider repeat VIOLA and if this shows severe MR she will be considered for right and left heart catheterization. Nephrology c/s for LAY on CKD III. Hold Lasix for 2-3 days. IVF challenge. 10/30/23 Patient remained stable. Scheduled right and left heart cath with Dr. Covarrubias on Friday, November 07, 2023 at 9:30 AM. Instructed patient to hold Eliquis for 48 hours prior to procedure. nephrology evaluated the patient today, patient's creatinine trending down. Recommended to resume Lasix 20 mg daily on October 30, hold ARB for now 10/31/23 Patient remained stable, although bradycardic, heart rate went down to 50s and 40s. Discussed with Dr. Covarrubias. Stopped metoprolol. Patient agreed for left and right heart catheterization - completed. Dr Covarrubias reviewed results with patient. 11/01/23 Continue apixaban 5mg bid, amiodarone 100mg daily, imdur 30mg daily, hydralaxine 25mg bid, lasix 20mg daily, kdur 10mEq daily, lipitor 40mg daily; per Cardiology, consider repeat VIOLA. Noted right groin hematoma, monitoring overnight. Planning MVR as outpatient. 11/02/23 Hematoma improving; medically cleared for discharge; f/u with Cardiology, Nephrology, PCP Hospital Problems: Principal Problem: Severe mitral regurgitation (POA: Yes) Active Problems: CAD (coronary artery disease) (POA: Yes) LAY (acute kidney injury) (HCC) (POA: Yes) Atrial fibrillation (HCC) (POA: Yes) Obesity, Class I, BMI 30-34.9 (POA: Yes) Resolved Problems: * No resolved hospital problems. * Assessment AND Plan: * Severe mitral regurgitation- (present on admission) - Per outpatient [place] records h/o moderate-severe MR - Presents with worsening SOB, primarily on minimal exertion - Not in acute CHF - Patient's shortness of breath improved with supplemental - Cardiology following; left and right heart cath completed on 10/30 - consider repeat VIOLA - Request made for OSH Echo ([place]) for Cardiology to evaluate. - Losartan on hold due to LAY - restart at discharge - Hold Lasix while inpatient - restart at discharge - Has appointment scheduled 11/21/[address] Hermosillo to evaluate for MVR Atrial fibrillation (HCC)- (present on admission) - Recent diagnosis as of Sep 2023 - d/c Amiodarone and metoprolol as per Cardiology - c/w Eliquis - (more content not included)... Normal [facility] CONSULT PROGon 11-02-2023 CONSULT PROG HNO ID: [id number] Author: VASYL COVARRUBIAS MD Service: Cardiovascular Medicine Author Type: Physician Type: Consult Progress Note Filed: 11/02/2023 13:36 Note Text: CARDIOLOGY CONSULT PROGRESS NOTE SERVICE DATE: 11/02/2023 Time: 9:54 AM ATTENDING: Ata Toscano MD 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 Helper: Vasyl Covarrubias MD ASSESSMENT: Admitted with worsening dyspnea -patient says it became a problem when she started amiodarone HFpEF, moderately severe MR (VIOLA [place] 07/2023: MR ERO 0.33 cm2, MR volume 67cm.)and +2 AI at [facility], says was being considered for MVR LAY (resolved ) on CKD Paroxysmal A-fib diagnosed 09/2023, started Amiodarone, has been NSR during this hospital stay. Low-dose BB metoprolol 25 twice daily was attempted for a couple of days but significant bradycardia in the 40s [not symptomatic] and therefore BB discontinued AC Eliquis CAD PCI LAD Synergy 03/2022 ; PCI RCA Synergy 3.0 x 20 in 05/2020, NM stress test reported normal 07/2023. Heart cath 10/31/2023: 70% ISR of proximal RCA stent Hypertension Hyperlipidemia, LDL 37 in 10/2023, at home on statin CKD ~ 1.4 Thyroid disease, BMI 32, GERD, depression anxiety, back and knee surgeries Card meds [employer]: Eliquis 5 twice daily, amiodarone 200 twice daily, Losartan 100 daily, Imdur 30 daily, hydralazine 25 twice daily, Lasix 20 daily, K-Dur 10 daily, Lipitor 40 daily RECOMMENDATIONS: Consider CMR or repeat VIOLA as OP Small right thigh hematoma is better Okay to discharge to home CTS team of [facility] will reach with the patient Discussed with pt and with nursing staff. VITAL SIGNS (last recorded): 11/01/23 2358 11/02/23 0344 11/02/23 0559 11/02/23 0748 BP: 122/54 125/51 110/58 Pulse: 69 66 62 Resp: 18 18 16 Temp: 36.9 ?C (98.4 ?F) 36.6 ?C (97.9 ?F) 36.6 ?C (97.9 ?F) TempSrc: Oral Oral Oral SpO2: 95% 96% 97% Weight: 84.4 kg (186 lb) Height: Comfortable, not in acute distress. INTERIM HISTORY: Feels fine no chest pain relative hypotension in the morning that has resolved MEDICATIONS: Current Facility-Administered Medications: traZODone 50 mg tab(s) (DESYREL) furosemide 20 mg tab(s) (LASIX) NaCl 0.9% iv flush bag melatonin 6 mg tab(s) acetaminophen 500-1,000 mg tab(s) (TYLENOL) ondansetron (PF) 4 mg injection (ZOFRAN) senna-docusate 8.6-50 mg 1-2 tablet (SENNA-S) atorvastatin 40 mg tab(s) (LIPITOR) hydrALAZINE 25 mg tab(s) (APRESOLINE) pantoprazole DR 40 mg tab(s) (PROTONIX) apixaban 5 mg tab(s) (ELIQUIS) liothyronine 5 mcg tab(s) (CYTOMEL) isosorbide mononitrate ER 30 mg tab(s) (IMDUR) escitalopram oxalate 10 mg tab(s) (LEXAPRO) aspirin, enteric coated 81 mg tab(s) PHYSICAL EXAM: Body mass index is 32.95 kg/m?. Awake, alert LUNGS: Decreased BSs bilaterally. CARDIAC: S1 and S2 EXTREMITIES: No edema. Small hematoma in the right groin no thrill no significant tenderness DATA: Diagnostic tests reviewed for today's visit: Reviewed recent relevant labs, EKG and imaging results. CBC, Coags, BMP, Mg, Phos Recent Labs 11/01/23 0934 10/31/23 0537 WBC -- 6.42 HB -- 12.2 HCT -- 36.3 PLT -- 174 NA 137 139 K 4.0 4.4 CHLOR 102 106* CO2 23 23 BUN 27* 33* CREAT 1.40* 1.42* GLUC 114* 96 CA 8.9 9.3 Liver Function, Amylase, AND Lipase Recent Labs 10/31/23 0537 TPROT 6.0* ALB 3.9 ALT 11 AST 12* ALKPHOS 82 TBILI 0.4 Cardiac Enzymes ABGs Last Lab Drawn: Recent Labs 10/31/23 0537 TG 115 HDL 52 LDL 37 CHOL 112 Thank you, Recommendations are communicated via shared electronic medical records. This note was partially generated using voice recognition system, there may be some incorrect words, spellings, and punctuation that were not noted in checking the note before saving. SIGNATURE: Vasyl Covarrubias MD PATIENT NAME: Cece Hubbard DATE: 11/02/2023 TIME: 9:54 AM call 24 hour service line Normal [facility] Basic metabolic 2000 panelon 11-01-2023 Anion gap [Moles/Vol] 12 mmol/L Normal 9-18 [facility] Comment on above: Order Comment: Speci men Type: BLOOD SPECIMENOrdering Facility: [facility] Address: [address] [place] [address] Performed By: #### 2 4321-2 ####[facility] LABORATORYCLIA [id number] [place] [address] [place] Calcium [Mass/Vol] 8.9 mg/dL Normal 8.5-10.2 [facility] Comment on above: Order Comment: Speci men Type: BLOOD SPECIMENOrdering Facility: [facility] Address: [address] [place] [address] Performed By: #### 2 4321-2 ####[facility] LABORATORYCLIA [id number] [place] [id number] [place] Chloride [Moles/Vol] 102 mmol/L Normal 97-105 [facility] Comment on above: Order Comment: Speci men Type: BLOOD SPECIMENOrdering Facility: [facility] Address: [address] [place] [address] Performed By: #### 2 4321-2 ####O[facility] LABORATORYCLIA [id number] [place] [id number] [place] CO2 [Moles/Vol] 23 mmol/L Normal 22-30 [facility] Comment on above: Order Comment: Speci men Type: BLOOD SPECIMENOrdering Facility: [facility] Address: [address] [place] [address] Performed By: #### 2 4321-2 ####[facility] LABORATORYCLIA [id number] [place] [id number] [place] Creatinine [Mass/Vol] 1.40 mg/dL High 0.58-0.96 [facility] Comment on above: Order Comment: Speci men Type: BLOOD SPECIMENOrdering Facility: [facility] Address: [address] [place] [address] Performed By: #### 2 4321-2 ####ODELL LABORATORYCLIA [id number] [place] [id number] [facility] Creatinine and Glomerular filtration rate.predicted panel (S/P/Bld) 39 mL/min/1.73m??? Low >=60 [facility] Comment on above: Order Comment: Speci men Type: BLOOD SPECIMENOrdering Facility: [facility] Address: [address] [place] [address] Result Comment: Amy mated Glomerular Filtration Rate [...] accurately reflect actual GFR. Performed By: #### 2 4321-2 ####[facility] LABORATORYCLIA [id number] [place] [id number] [place] Glucose [Mass/Vol] 114 mg/dL High 74-99 [facility] Comment on above: Order Comment: Tremayne bill Type: BLOOD SPECIMENOrdering Facility: [facility] Address: [address] [place] [address] Result Comment: The [place] Diabetes Association (ADA) provides guidance for cutoff [...] Standards of Medical Care in Diabetes 2016, [place] [employer] Association. Diabetes Care. 2016.39(Suppl 1). Performed By: #### 2 4321-2 ####SAGE LABORATORYCLIA [id number] [place] [id number] [place] Potassium [Moles/Vol] 4.0 mmol/L Normal 3.7-5.1 [facility] Comment on above: Order Comment: Tremayne bill Type: BLOOD SPECIMENOrdering Facility: [facility] Address: [address] [place] [address] Performed By: #### 2 4321-2 ####SAGE LABORATORYCLIA [id number] [place] [id number] [place] Sodium [Moles/Vol] 137 mmol/L Normal 136-144 [facility] Comment on above: Order Comment: Tremayne bill Type: BLOOD SPECIMENOrdering Facility: [facility] Address: [address] [place] [address] Performed By: #### 2 4321-2 ####[facility] LABORATORYCLIA [id number] [address] [place] [facility] Urea nitrogen [Mass/Vol] 27 mg/dL High 7- [facility] Comment on above: Order Comment: Speci men Type: BLOOD SPECIMENOrdering Facility: [facility] Address: [address] [place] [address] Performed By: #### 2 4321-2 ####ODELL LABORATORYCLIA [id number] [address] CONSULT PROGon 11-01-2023 CONSULT PROG HNO ID: [id number] Author: VASYL COVARRUBIAS MD Service: Cardiovascular Medicine Author Type: Physician Type: Consult Progress Note Filed: 11/02/2023 09:54 Note Text: CARDIOLOGY CONSULT PROGRESS NOTE SERVICE DATE: 11/01/2023 Time: 9:11 AM ATTENDING: Ata Toscano MD 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 Helper: Vasyl Covarrubias MD ASSESSMENT: Admitted with worsening dyspnea -patient says it became a problem when she started amiodarone HFpEF, moderately severe MR (VIOLA [place] 07/2023: MR ERO 0.33 cm2, MR volume 67cm.)and +2 AI at [facility], says was being considered for MVR LAY (resolved ) on CKD Paroxysmal A-fib diagnosed 09/2023, started Amiodarone, has been NSR during this hospital stay. Low-dose BB metoprolol 25 twice daily was attempted for a couple of days but significant bradycardia in the 40s [not symptomatic] and therefore BB discontinued AC Eliquis CAD PCI LAD Synergy 03/2022 ; PCI RCA Synergy 3.0 x 20 in 05/2020, NM stress test reported normal 07/2023. Heart cath 10/31/2023: 70% ISR of proximal RCA stent Hypertension Hyperlipidemia, LDL 37 in 10/2023, at home on statin CKD ~ 1.4 Thyroid disease, BMI 32, GERD, depression anxiety, back and knee surgeries Card meds [employer]: Eliquis 5 twice daily, amiodarone 200 twice daily, Losartan 100 daily, Imdur 30 daily, hydralazine 25 twice daily, Lasix 20 daily, K-Dur 10 daily, Lipitor 40 daily RECOMMENDATIONS: Discussed again results of heart catheterization Consider CMR or repeat VIOLA Small right thigh hematoma with no thrill, will monitor Discussed with pt and with nursing staff. VITAL SIGNS (last recorded): 10/31/23 2353 11/01/23 0400 11/01/23 0545 11/01/23 0756 BP: 117/66 113/52 97/76 Pulse: (!) 59 (!) 57 67 Resp: 16 15 18 Temp: 36.9 ?C (98.4 ?F) 36.9 ?C (98.4 ?F) 36.5 ?C (97.7 ?F) TempSrc: Oral Oral Oral SpO2: 97% 95% 98% Weight: 84.7 kg (186 lb 11.7 oz) Height: Comfortable, not in acute distress. INTERIM HISTORY: Feels fine no chest pain relative hypotension in the morning that has resolved MEDICATIONS: Current Facility-Administered Medications: furosemide 20 mg tab(s) (LASIX) NaCl 0.9% iv flush bag melatonin 6 mg tab(s) acetaminophen 500-1,000 mg tab(s) (TYLENOL) ondansetron (PF) 4 mg injection (ZOFRAN) senna-docusate 8.6-50 mg 1-2 tablet (SENNA-S) atorvastatin 40 mg tab(s) (LIPITOR) hydrALAZINE 25 mg tab(s) (APRESOLINE) pantoprazole DR 40 mg tab(s) (PROTONIX) apixaban 5 mg tab(s) (ELIQUIS) liothyronine 5 mcg tab(s) (CYTOMEL) isosorbide mononitrate ER 30 mg tab(s) (IMDUR) escitalopram oxalate 10 mg tab(s) (LEXAPRO) aspirin, enteric coated 81 mg tab(s) PHYSICAL EXAM: Body mass index is 33.08 kg/m?. Awake, alert LUNGS: Decreased BSs bilaterally. CARDIAC: S1 and S2 EXTREMITIES: No edema. Small hematoma in the right groin no thrill no significant tenderness DATA: Diagnostic tests reviewed for today's visit: Reviewed recent relevant labs, EKG and imaging results. CBC, Coags, BMP, Mg, Phos Recent Labs 10/31/23 0537 10/30/23 0520 WBC 6.42 6.19 HB 12.2 12.3 HCT 36.3 36.8 PLT 174 180 NA 139 139 K 4.4 4.3 CHLOR 106* 105 CO2 23 23 BUN 33* 32* CREAT 1.42* 1.53* GLUC 96 95 CA 9.3 9.2 MG -- 2.1 Liver Function, Amylase, AND Lipase Recent Labs 10/31/23 0537 10/30/23 0520 TPROT 6.0* 6.1* ALB 3.9 3.7* ALT 11 10 AST 12* 11* ALKPHOS 82 82 TBILI 0.4 0.5 Cardiac Enzymes ABGs Last Lab Drawn: Recent Labs 10/31/23 0537 TG 115 HDL 52 LDL 37 CHOL 112 Thank you, Recommendations are communicated via shared electronic medical records. This note was partially generated using voice recognition system, there may be some incorrect words, spellings, and punctuation that were not noted in checking the note before saving. SIGNATURE: Vasyl Covarrubias MD PATIENT NAME: Cece Hubbard DATE: 11/01/2023 TIME: 9:11 AM call 24 hour service line Normal [facility] CBC W Auto Differential pane l (Bld)on 10-31-2023 Basophils (Bld) [#/Vol] 0.04 10*3/uL Normal <0.11 [facility] Comment on above: Order Comment: Speci men Type: BLOOD SPECIMEN [facility] Address: [address] [place] [address] Performed By: #### 5 7021-8 #### [facility] CLIA [id number] [address] [place] [address] [place] Basophils/100 WBC (Bld) 0.6 % Normal [facility] Comment on above: Order Comment: Speci men Type: BLOOD SPECIMEN [facility] Address: [address] [place] [address] Performed By: #### 5 7021-8 #### [facility] CLIA [id number] [address] [place] [address] [place] Differential cell count method Nom (Bld) Auto Normal [facility] Comment on above: Order Comment: Speci men Type: BLOOD SPECIMEN [facility] Address: [address] [place] [address] Performed By: #### 5 7021-8 #### [facility] CLIA [id number] [address] [place] [address] [place] Eosinophils (Bld) [#/Vol] 0.23 10*3/uL Normal <0.46 [facility] Comment on above: Order Comment: Speci men Type: BLOOD SPECIMEN [facility] Address: [address] [place] [address] Performed By: #### 5 7021-8 #### [facility] CLIA [id number] [address] [place] [address] [place] Eosinophils/100 WBC (Bld) 3.6 % Normal [facility] Comment on above: Order Comment: Speci men Type: BLOOD SPECIMEN [facility] Address: [address] [place] [address] Performed By: #### 5 7021-8 #### [facility] CLIA [id number] [address] [place] [address] [place] Erythrocyte distribution width (RBC) [Ratio] 13.2 % Normal 11.5-15.0 [facility] Comment on above: Order Comment: Speci men Type: BLOOD SPECIMEN [facility] Address: [address] [place] [address] Performed By: #### 5 7021-8 #### [facility] CLIA [id number] [address] [place] [address] [place] Hematocrit (Bld) [Volume fraction] 36.3 % Normal 36.0-46.0 [facility] Comment on above: Order Comment: Speci men Type: BLOOD SPECIMEN [facility] Address: [address] [place] [address] Performed By: #### 5 7021-8 #### [facility] CLIA [id number] [address] [place] [address] [place] Hemoglobin (Bld) [Mass/Vol] 12.2 g/dL Normal 11.5-15.5 [facility] Comment on above: Order Comment: Speci men Type: BLOOD SPECIMEN [facility] Address: [address] [place] [address] Performed By: #### 5 7021-8 #### [facility] CLIA [id number] [address] [place] [address] [place] Immature granulocytes (Bld) [#/Vol] 0.07 10*3/uL Normal <0.10 [facility] Comment on above: Order Comment: Speci men Type: BLOOD SPECIMEN [facility] Address: [address] [place] [address] Performed By: #### 5 7021-8 #### [facility] CLIA [id number] [address] [place] [address] [place] Immature granulocytes/100 WBC (Bld) 1.1 % Normal [facility] Comment on above: Order Comment: Speci men Type: BLOOD SPECIMEN [facility] Address: [address] [place] [address] Performed By: #### 5 7021-8 #### [facility] CLIA [id number] [address] [place] [address] [place] Lymphocytes (Bld) [#/Vol] 1.81 10*3/uL Normal 1.00-4.00 [facility] Comment on above: Order Comment: Speci men Type: BLOOD SPECIMEN [facility] Address: [address] [place] [address] Performed By: #### 5 7021-8 #### [facility] CLIA [id number] [address] [place] [address] [place] Lymphocytes/100 WBC (Bld) 28.2 % Normal [facility] Comment on above: Order Comment: Speci men Type: BLOOD SPECIMEN [facility] Address: [address] [place] [address] Performed By: #### 5 7021-8 #### [facility] CLIA [id number] [address] [place] [address] [place] MCH (RBC) [Entitic mass] 31.6 pg Normal 26.0-34.0 [facility] Comment on above: Order Comment: Speci men Type: BLOOD SPECIMEN [facility] Address: [address] [place] [address] Performed By: #### 5 7021-8 #### [facility] CLIA [id number] [address] [place] [address] [place] MCHC (RBC) [Mass/Vol] 33.6 g/dL Normal 30.5-36.0 [facility] Comment on above: Order Comment: Speci men Type: BLOOD SPECIMEN [facility] Address: [address] [place] [address] Performed By: #### 5 7021-8 #### [facility] CLIA [id number] [address] [place] [address] [place] MCV (RBC) [Entitic vol] 94.0 fL Normal 80.0-100.0 [facility] Comment on above: Order Comment: Speci men Type: BLOOD SPECIMEN [facility] Address: [address] [place] [address] Performed By: #### 5 7021-8 #### [facility] CLIA [id number] [address] [place] [address] [place] Monocytes (Bld) [#/Vol] 0.84 10*3/uL Normal <0.87 [facility] Comment on above: Order Comment: Speci men Type: BLOOD SPECIMEN [facility] Address: [address] [place] [address] Performed By: #### 5 7021-8 #### [facility] CLIA [id number] [address] [place] [address] [place] Monocytes/100 WBC (Bld) 13.1 % Normal [facility] Comment on above: Order Comment: Speci men Type: BLOOD SPECIMEN [facility] Address: [address] [place] [address] Performed By: #### 5 7021-8 #### [facility] CLIA [id number] [address] [place] [address] [place] Neutrophils (Bld) [#/Vol] 3.43 10*3/uL Normal 1.45-7.50 [facility] Comment on above: Order Comment: Speci men Type: BLOOD SPECIMEN Ordering Facility: [facility] Address: [address] [place] [address] Performed By: #### 5 7021-8 #### [facility] CLIA [id number] [address] [place] [address] [place] Neutrophils/100 WBC (Bld) 53.4 % Normal [facility] Comment on above: Order Comment: Speci men Type: BLOOD SPECIMEN Ordering Facility: [facility] Address: [address] [place] [address] Performed By: #### 5 7021-8 #### [facility] CLIA [id number] [address] [place] [address] [place] Nucleated RBC (Bld) [#/Vol] 10*3/uL Normal <0.01 [facility] Comment on above: Order Comment: Speci men Type: BLOOD SPECIMEN Ordering Facility: [facility] Address: [address] [place] [address] Performed By: #### 5 7021-8 #### [facility] CLIA [id number] [address] [place] [address] [place] Nucleated RBC/100 WBC (Bld) [Ratio] 0.0 /100 WBC Normal [facility] Comment on above: Order Comment: Speci men Type: BLOOD SPECIMEN Ordering Facility: [facility] Address: [address] [place] [address] Performed By: #### 5 7021-8 #### [facility] CLIA [id number] [address] [place] [address] [place] Platelet mean volume (Bld) [Entitic vol] 11.3 fL Normal 9.0-12.7 [facility] Comment on above: Order Comment: Speci men Type: BLOOD SPECIMEN Ordering Facility: [facility] Address: [address] [place] [address] Performed By: #### 5 7021-8 #### [facility] CLIA [id number] [place] [address] [place] Platelets (Bld) [#/Vol] 174 10*3/uL Normal 150-400 [facility] Comment on above: Order Comment: Speci men Type: BLOOD SPECIMEN Ordering Facility: [facility] Address: [address] [place] [address] Performed By: #### 5 7021-8 #### [facility] CLIA [id number] [place] [address] [place] RBC (Bld) [#/Vol] 3.86 10*6/uL Low 3.90-5.20 [facility] Comment on above: Order Comment: Speci men Type: BLOOD SPECIMEN Ordering Facility: [facility] Address: [address] [place] [address] Performed By: #### 5 7021-8 #### [facility] CLIA [id number] [address] [place] [address] [place] WBC (Bld) [#/Vol] 6.42 10*3/uL Normal 3.70-11.00 [facility] Comment on above: Order Comment: Speci men Type: BLOOD SPECIMEN Ordering Facility: [facility] Address: [address] [place] [address] Performed By: #### 5 7021-8 #### [facility] CLIA [id number] [address] [place] [address] [place] CNPSusan 10-31-20[facility] -- CECE HUBBARD ([id number]) 1945 F Date Time Provider Department 10/31/23 GAETANO SHAW [facility] During your visit today, we recorded the following information about you: Karis Ware 10/31/2023 4:17 PM Signed Please advise whether the patient's insurance is in network Thank you! Rayo Gonzalez 10/31/2023 4:30 PM Signed IN Allergies As of Date: 10/31/2023 Noted Allergy Reaction SERINA INHIBITORS 04/28/2012 2 - Rash 4 - Hives AMLODIPINE 04/24/2022 7 - Swelling CODEINE 04/28/2012 11 - Vomiting DILAUDID (HYDROMORPHONE (BULK)) 05/12/2012 11 - Vomiting MEPERIDINE 07/28/2017 11 - Vomiting MORPHINE 10/26/2023 11 - Vomiting NEURONTIN (GABAPENTIN) 10/26/2023 1 - Mental Status Change Date Reviewed: 10/31/2023 Reviewed by: Giles Silvestre RN - Fully Assessed Reason for Visit: Insurance Inquiry [1462] Prescriptions as of 10/31/2023 - ELIQUIS 5 mg tab(s) Take 1 tablet by mouth every 12 hours. - isosorbide mononitrate ER (IMDUR) 30 mg 24 hr tablet Take 30 mg by mouth. - amiodarone (PACERONE) 200 mg tablet Take 1 tablet by mouth every 12 hours. - liothyronine (CYTOMEL) 5 mcg tablet Take 1 tablet by mouth every afternoon. - escitalopram oxalate (LEXAPRO) 10 mg tablet Take 1 tablet by mouth every afternoon. - furosemide (LASIX) 20 mg tablet Take [...] Take 1 capsule by mouth once daily. Facility-Administered Medications as of 10/31/2023 - furosemide 20 mg tab(s) (LASIX) - NaCl 0.9% iv flush bag - melatonin 6 mg tab(s) - acetaminophen 500-1,000 mg tab(s) (TYLENOL) - ondansetron (PF) 4 mg injection (ZOFRAN) - senna-docusate 8.6-50 mg 1-2 tablet (SENNA-S) - atorvastatin 40 mg tab(s) (LIPITOR) - hydrALAZINE 25 mg tab(s) (APRESOLINE) - pantoprazole DR 40 mg tab(s) (PROTONIX) - apixaban 5 mg tab(s) (ELIQUIS) - liothyronine 5 mcg tab(s) (CYTOMEL) - isosorbide mononitrate ER 30 mg tab(s) (IMDUR) - escitalopram oxalate 10 mg tab(s) (LEXAPRO) - aspirin, enteric coated 81 mg tab(s) - sodium chloride 0.9 % (flush) 2-10 mL (BD POSIFLUSH) - perflutren lipid microspheres 1.1 mg/mL 1.3 mL injection (Kannact) Problem List As Of Date 10/31/2023 Noted Resolved Knee pain [M25.569] 06/04/2012 Chronic bilateral low back pain without sciatic*06/14/2016 HTN (hypertension) [I10] 02/22/2019 Hyperlipidemia [E78.5] 02/22/2019 Acid reflux [K21.9] 02/22/2019 Depression [F32.A] 04/24/2022 Anxiety [F41.9] 04/24/2022 CAD (coronary artery disease) [I25.10] 04/24/2022 Severe mitral regurgitation [I34.0] 10/27/2023 LAY (acute kidney injury) (HCC) [N17.9] 10/27/2023 Mitral valve insufficiency [I34.0] 10/27/2023 Atrial fibrillation (HCC) [I48.91] 10/27/2023 Obesity, Class I, BMI 30-34.9 [E66.9] 10/30/2023 Encounter Status:Closed by RAYO GONZALEZ on 10/31/23 Normal [facility]NPN Telephone ([facility]) -- STEVIECECE DIAL ([id number]) 1945 F Date Time Provider Department 10/31/23 GAETANO SHAW [facility] During your visit today, we recorded the following information about you: Karis Ware 10/31/2023 4:24 PM Signed LOCAL PATIENT Received Call from Dr. Satish Clementor is being referred to Gaetano Shaw MD by Vasyl Covarrubias [id number] [address] [facility] [phone] Patient diagnosis/Reason for consult: MVR Referral triage process explained: N/A Patient will receive a call from Cardiac NPM after triage review with surgeon to discuss any additional testing and/or consults that will be scheduled. Pt will then receive a call from our scheduling office for scheduling. Please call pt at [phone]. Patient Registration: Registration complete/updated: yes Insurance card(s) scanned in [employer] with in the past year: Yes: Date: 10/26/2023 Pt's [employer] is active. Ok to communicate to pt via [employer] not asked Medical Records: Records in [facility] (internal CC records): Yes Imaging in [facility] (internal [facility] records): Yes Additional providers added to Care Teams: Yes Additional Notes/Comments: Enct routed to: Yes, Cardiac NPM for triage Jadyn Artis, VIKTOR 11/03/2023 9:59 AM Signed Chart reviewed November 03, 2023. File given to Dr. Shaw for his review/plan of care. 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 Symptoms: increasing dyspnea, Palpitations EF%: 67% Thinners: Eliquis, Aspirin 81 mg Smoking status: quit 1988 VIKTOR Allan Georgia, RN 11/06/2023 4:[address] Shaw reviewed the case and is recommending surgery consisting of MVr-CABG x1 (RCA)-maze-LAAC +/- AVR. NPM to call the patient. VIKTOR Allan Georgia, RN 11/11/2023 12:14 PM Signed I spoke to Mrs. Hubbard regarding Dr. Shaw' surgical recommendation and our surgery scheduling process. She is interested in 12/05/23 for her surgery date. She has not seen a dentist in the past 6 months. She is going to call her dentist to see if she is able to get an appointment and will let me know if this is a problem for the 12/05/23 surgery date. She will call me back. VIKTOR Allan Georgia, RN 11/11/2023 1:52 PM Signed Cards HANDP-preop studies-CT chest wo-Carotid US-vein mapping-PFTs 12/03/23, [facility]-Dr. Shaw consult 1 pm 12/03, [facility] 12/05/23 Mrs. Hubbard called back saying she is able to be seen in [place] [facility] tomorrow, so she would like to move forward scheduling her surgery. We discussed her preoperative appointments for December 02-2023 prior to her surgery on 12/05/23. She will bring a dental clearance letter. She was further instructed to take her last dose of eliquis on 11/29/23 as well as all vitamins and OTC supplements. Jadyn Storey RN Cardiac Surgery PreOp Checklist Patient Name: Cece Hubbard OR Surgery Date: 12/05/23 [facility] Appt. Date: 12/04/23 Primary Care Provider: Demarco Newell MD Definition Comments Diabetes/Insulin Pump A1-c and Endo consult (need for pump pt) n/a Hypothyroid/thyroid nodules TSH/US of thyroid if new nodule ordered Stroke (CVA) Neurology consult n/a Dysphagia, stricture w/no recent dilation, Aguilar's Esophagus GI consult n/a Von Willebrand/thrombocytopeni a/ Blood... Hematology consult n/a Abnormal labs from outside Place any necessary consults n/a Cardiac Cath Correct birthday/include all images/moving if outside cath [facility] 10/31/23 Redo OHS/Robotic surgery/radiation to chest CT or CTA/if outside CT will need in-house CXR, Cardiac MRI n/a Mechanical valve Admit for Heparin/Lovenox bridge n/a Female <50 y/o HCG n/a Heparin allergy hx of HIT Vascular Medicine consult n/a Nickel/Metal allergy Dermatology consult n/a Breast implants/Robotic candidates Plastic Surgery consult n/a Urinary strictures Urology consult/Urology consult to OR n/a All stimulators/spinal stimulator Type of stimulator n/a PPM/AICD Device check n/a Valve/TAVR/TEVAR/Myectomy/ ascending aorta Dental clearance/Dental Consult at [facility] Will bring letter CABG surgery with previous CABG/varicose vein/vein stripping Leg vein mapping n/a LMT disease > 30% or Carotid Bruits Carotid ultrasound n/a Descending Aneurysm/TEVAR/TAA Pre-admit/hydration/spinal drain to be placed: IR/OR/Not Needed n/a Dialysis patient IHD day prior to OHS n/a CABG with no ECHO results Discussion w/surgeon results for dental clearance: preop/postop n/a Advanced Directives Instructions given to patient n/a FMLA Forward to AA n/a Test/Consult not needed Communicate (more content not included)... Normal [facility] CONSULT PROGon 10-31-2023 CONSULT PROG HNO ID: [id number] Author: VASYL COVARRUBIAS MD Service: Cardiovascular Medicine Author Type: Physician Type: Consult Progress Note Filed: 10/31/2023 10:07 Note Text: CARDIOLOGY CONSULT PROGRESS NOTE SERVICE DATE: 10/31/2023 Time: 9:57 AM ATTENDING: Ata Toscano MD 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 Helper: Vasyl Covarrubias MD ASSESSMENT: Admitted with worsening dyspnea HFpEF, moderately severe MR (VIOLA [place] 07/2023: MR ERO 0.33 cm2, MR volume 67cm.)and mild to moderate AI at [facility], says was being considered for MVR LAY on CKD Paroxysmal A-fib diagnosed 1 month ago started Amiodarone, has been NSR during hospital stay. We DC'd amnio. Low-dose BB metoprolol 25 twice daily was attempted for a couple of days but significant bradycardia in the 40s [not symptomatic] and therefore BB discontinued AC Eliquis CAD PCI LAD Synergy 03/2022 ; PCI RCA Synergy 3.0 x 20 in 05/2020, NM stress test reported normal 07/2023 Hypertension Hyperlipidemia, at home on statin CKD ~ 1.4 Thyroid disease, BMI 32, GERD, depression anxiety, back and knee surgeries Card meds [employer]: Eliquis 5 twice daily, amiodarone 200 twice daily, Losartan 100 daily, Imdur 30 daily, hydralazine 25 twice daily, Lasix 20 daily, K-Dur 10 daily, Lipitor 40 daily RECOMMENDATIONS: Hold metoprolol 25 twice daily due to bradycardia in the 40s I had a conversation with the patient regarding heart catheterization before discharge. We also discussed increased renal risks patient requested to proceed Advised to consider Cardiac Catheterization with possible PCI (Balloon, stent and other interventions and related procedures). Procedure (actual procedure of heart catheterization and/or PCI), Indications, Complications (including but not limited to stroke, ME, bleeding, infection, permanent damage to vessel, loss of extremity, kidney damage requiring permanent kidney dialysis, possible need for emergency heart surgery and ) and Alternatives (including medical management, observation, further testing and second opinion) were discussed with the patient and family (at bedside if available). Possible long-term commitment to taking strong blood-thinners and risk of fatal ME if discontinued without cardiac supervision. Requested to proceed. Informed Consent obtained. ASA Score noted. Discussed with pt and with nursing staff. VITAL SIGNS (last recorded): 10/30/23 1945 10/31/23 0033 10/31/23 0419 10/31/23 0739 BP: 109/54 100/51 120/56 121/56 Pulse: (!) 51 (!) 51 (!) 52 (!) 48 Resp: 15 16 16 16 Temp: 36.6 ?C (97.9 ?F) 36.7 ?C (98.1 ?F) 36.5 ?C (97.7 ?F) 36.3 ?C (97.3 ?F) TempSrc: Oral Oral Oral Oral SpO2: 98% 97% 98% 97% Weight: Height: Comfortable, not in acute distress. INTERIM HISTORY: No chest pain breathing better comfortable MEDICATIONS: Current Facility-Administered Medications: furosemide 20 mg tab(s) (LASIX) NaCl 0.9% iv flush bag melatonin 6 mg tab(s) acetaminophen 500-1,000 mg tab(s) (TYLENOL) ondansetron (PF) 4 mg injection (ZOFRAN) senna-docusate 8.6-50 mg 1-2 tablet (SENNA-S) atorvastatin 40 mg tab(s) (LIPITOR) hydrALAZINE 25 mg tab(s) (APRESOLINE) pantoprazole DR 40 mg tab(s) (PROTONIX) apixaban 5 mg tab(s) (ELIQUIS) liothyronine 5 mcg tab(s) (CYTOMEL) isosorbide mononitrate ER 30 mg tab(s) (IMDUR) escitalopram oxalate 10 mg tab(s) (LEXAPRO) aspirin, enteric coated 81 mg tab(s) [COMPLETED] ECHO AND sodium chloride 0.9 % (flush) 2-10 mL (BD POSIFLUSH) AND perflutren lipid microspheres 1.1 mg/mL 1.3 mL injection (DEFINFrilp) PHYSICAL EXAM: Body mass index is 33.09 kg/m?. Awake, alert LUNGS: Decreased BSs bilaterally. CARDIAC: S1 and S2 systolic murmur EXTREMITIES: No edema. DATA: Diagnostic tests reviewed for today's visit: Reviewed recent relevant labs, EKG and imaging results. CBC, Coags, BMP, Mg, Phos Recent Labs 10/31/23 0537 10/30/23 0520 10/29/23 0428 WBC 6.42 6.19 6.30 HB 12.2 12.3 12.6 HCT 36.3 36.8 37.0 PLT 174 180 178 NA 139 139 138 K 4.4 4.3 4.2 CHLOR 106* 105 99 CO2 23 23 27 BUN 33* 32* 37* CREAT 1.42* 1.53* 1.82* GLUC 96 95 101* CA 9.3 9.2 9.4 MG -- 2.1 -- Liver Function, Amylase, AND Lipase Recent Labs 10/31/23 0537 10/30/23 0520 10/29/23 0428 TPROT 6.0* 6.1* 6.4 ALB 3.9 3.7* 4.2 ALT 11 10 11 AST 12* 11* 13 ALKPHOS 82 82 91 TBILI 0.4 0.5 0.6 Cardiac Enzymes ABGs Last Lab Drawn: Recent Labs 10/29/23 0428 PBNP 245 Recent Labs 10/29/238 HSTNT 21* Thank you, Recommendations are communicated via shared electronic medical records. CCU:This patient has a high probability of sudden, clinically significant deterioration, which requires the highest level of physician preparedness to intervene urgently. I managed/supervised cardiac and cardiovascular life or organ supporting interventions that required frequent physician assessment. I devoted my full attention to the direct care of this patient for (more content not included)... Normal [facility] Comprehensive metabolic 2000 panelon 10-31-2023 Albumin [Mass/Vol] 3.9 g/dL Normal 3.9-4.9 [facility] Comment on above: Order Comment: Speci men Type: BLOOD SPECIMEN Ordering Facility: [facility] Address: [address] [place] [address] Performed By: #### 5 7021-8 #### [facility] CLIA [id number] [address] [place] [address] [place] ALP [Catalytic activity/Vol] 82 U/L Normal 34-123 [facility] Comment on above: Order Comment: Speci men Type: BLOOD SPECIMEN Ordering Facility: [facility] Address: [address] [place] [address] Performed By: #### 5 7021-8 #### [facility] CLIA [id number] [address] [place] [address] [place] ALT [Catalytic activity/Vol] 11 U/L Normal 7-38 [facility] Comment on above: Order Comment: Speci men Type: BLOOD SPECIMEN Ordering Facility: [facility] Address: [address] [place] [address] Performed By: #### 5 7021-8 #### [facility] CLIA [id number] [address] [place] [address] [place] Anion gap [Moles/Vol] 10 mmol/L Normal 9-18 [facility] Comment on above: Order Comment: Speci men Type: BLOOD SPECIMEN Ordering Facility: [facility] Address: [address] [place] [address] Performed By: #### 5 7021-8 #### [facility] CLIA [id number] [address] [place] [address] [place] AST [Catalytic activity/Vol] 12 U/L Low 13-35 [facility] Comment on above: Order Comment: Speci men Type: BLOOD SPECIMEN Ordering Facility: [facility] Address: [address] [place] [address] Performed By: #### 5 7021-8 #### [facility] CLIA [id number] [address] [place] [address] [place] Bilirubin [Mass/Vol] 0.4 mg/dL Normal 0.2-1.3 [facility] Comment on above: Order Comment: Speci men Type: BLOOD SPECIMEN Ordering Facility: [facility] Address: [address] [place] [address] Performed By: #### 5 7021-8 #### [facility] CLIA [id number] [address] [place] [address] [place] Calcium [Mass/Vol] 9.3 mg/dL Normal 8.5-10.2 [facility] Comment on above: Order Comment: Speci men Type: BLOOD SPECIMEN Ordering Facility: [facility] Address: [address] [place] [address] Performed By: #### 5 7021-8 #### [facility] CLIA [id number] [address] [place] [address] [place] Chloride [Moles/Vol] 106 mmol/L High 97-105 [facility] Comment on above: Order Comment: Speci men Type: BLOOD SPECIMEN Ordering Facility: [facility] Address: [address] [place] [address] Performed By: #### 5 7021-8 #### [facility] CLIA [id number] [address] [place] [address] [place] CO2 [Moles/Vol] 23 mmol/L Normal 22-30 [facility] Comment on above: Order Comment: Tremayne bill Type: BLOOD SPECIMEN Ordering Facility: [facility] Address: [address] [place] [address] Performed By: #### 5 7021-8 #### [facility] CLIA [id number] [address] [place] [address] [place] Creatinine [Mass/Vol] 1.42 mg/dL High 0.58-0.96 [facility] Comment on above: Order Comment: Tremayne fly Type: BLOOD SPECIMEN Ordering Facility: [facility] Address: [address] [place] [address] Performed By: #### 5 7021-8 #### [facility] CLIA [id number] [address] [place] [address] [place] Creatinine and Glomerular filtration rate.predicted panel (S/P/Bld) 38 mL/min/1.73m??? Low >=60 [facility] Comment on above: Order Comment: Tremayne bill Type: BLOOD SPECIMEN Ordering Facility: [facility] Address: [address] [place] [address] Result Comment: Amy mated Glomerular Filtration Rate [...] accurately reflect actual GFR. Performed By: #### 5 7021-8 #### [facility] CLIA [id number] [place] [address] [place] Glucose [Mass/Vol] 96 mg/dL Normal 74-99 [facility] Comment on above: Order Comment: Zakclara bill Type: BLOOD SPECIMEN Ordering Facility: [facility] Address: [address] [place] [address] Result Comment: The [place] Diabetes Association (ADA) provides guidance for cutoff [...] Standards of Medical Care in Diabetes 2016, [place] Diabetes Association. Diabetes Care. 2016.39(Suppl 1). Performed By: #### 5 7021-8 #### [facility] CLIA [id number] [address] [place] [address] [place] Potassium [Moles/Vol] 4.4 mmol/L Normal 3.7-5.1 [facility] Comment on above: Order Comment: Tremayne bill Type: BLOOD SPECIMEN Ordering Facility: [facility] Address: [address] [place] [address] Performed By: #### 5 7021-8 #### [facility] CLIA [id number] [address] [place] [address] [place] Protein [Mass/Vol] 6.0 g/dL Low 6.3-8.0 [facility] Comment on above: Order Comment: Tremayne bill Type: BLOOD SPECIMEN Ordering Facility: [facility] Address: [address] [place] [address] Performed By: #### 5 7021-8 #### [facility] CLIA [id number] [address] [place] [address] [place] Sodium [Moles/Vol] 139 mmol/L Normal 136-144 [facility] Comment on above: Order Comment: Zaki fly Type: BLOOD SPECIMEN Ordering Facility: [facility] Address: [address] [place] [address] Performed By: #### 5 7021-8 #### [facility] CLIA [id number] [address] [place] [address] [place] Urea nitrogen [Mass/Vol] 33 mg/dL High 7-21 [facility] Comment on above: Order Comment: Zaki men Type: BLOOD SPECIMEN Ordering Facility: [facility] Address: [address] [place] [address] Performed By: #### 5 7021-8 #### [facility] CLIA [id number] [address] [place] [address] [place] Lipid 1996 panelon 4 Cholesterol [Mass/Vol] 112 mg/dL Normal <200 [facility] Comment on above: Order Comment: Speci men Type: BLOOD SPECIMEN Ordering Facility: [facility] Address: [address] [place] [address] Result Comment: <200 mg/dL, Desirable 200-239 mg/dL, Borderline high >239 mg/dL, High Performed By: #### 5 7021-8 #### [facility] CLIA [id number] [address] [place] [address] [place] Cholesterol in HDL [Mass/Vol] 52 mg/dL Normal >39 [facility] Comment on above: Order Comment: Speci men Type: BLOOD SPECIMEN Ordering Facility: [facility] Address: [address] [place] [address] Result Comment: 40-5 9 mg/dL, Acceptable >59 mg/dL, High: Negative risk factor for coronary heart disease <40 mg/dL, Low: Positive risk factor for coronary heart disease Performed By: #### 5 7021-8 #### [facility] CLIA [id number] [address] [place] [address] [place] Cholesterol in LDL [Mass/Vol] 37 mg/dL Normal <100 [facility] Comment on above: Order Comment: Speci men Type: BLOOD SPECIMEN Ordering Facility: [facility] Address: [address] [place] [address] Result Comment: <100 mg/dL, Optimal 100-129 mg/dL, Near optimal/above optimal 130-159 mg/dL, Borderline high 160-189 mg/dL, High >189 mg/dL, Very high Secondary prevention optimal LDL Cholesterol levels are recommended to be < 70 mg/dL Performed By: #### 5 7021-8 #### [facility] CLIA [id number] [address] [place] [address] [place] Cholesterol in LDL/Cholesterol in HDL [Mass ratio] 0.71 {ratio} Normal <2.54 [facility] Comment on above: Order Comment: Tremayne bill Type: BLOOD SPECIMEN Ordering Facility: [facility] Address: [address] [place] [address] Result Comment: Teri artis: 1. National Cholesterol Education Program ATP III Guideline At-A-Glance Quick Desk Reference: National Heart, Lung, and Blood Everetts. National Institutes of Health. 2001: NIH Publication No. 01-3305. 2. An International Atherosclerosis Society position paper: global recommendations for the management of dyslipidemia: executive summary, Atherosclerosis. 2014: 232(2):410-413. Performed By: #### 5 7021-8 #### [facility] CLIA [id number] [address] [place] [address] [place] Cholesterol in VLDL [Mass/Vol] 23 mg/dL Normal <30 [facility] Comment on above: Order Comment: Tremayne bill Type: BLOOD SPECIMEN Ordering Facility: [facility] Address: [address] [place] [address] Performed By: #### 5 7021-8 #### [facility] CLIA [id number] [address] [place] [address] [place] Cholesterol non HDL [Mass/Vol] 60 mg/dL Normal <130 [facility] Comment on above: Order Comment: Tremyane bill Type: BLOOD SPECIMEN Ordering Facility: [facility] Address: [address] [place] [address] Result Comment: <130 mg/dL, Optimal 130-159 mg/dL, Near optimal/above optimal 160-189 mg/dL, Borderline high 190-219 mg/dL, High >219 mg/dL, Very high Secondary prevention optimal non HDL Cholesterol levels are recommended to be <100 mg/dL Performed By: #### 5 7021-8 #### [facility] CLIA [id number] [address] [place] [address] [place] Cholesterol.total/Chol esterol in HDL [Mass ratio] 2.15 {ratio} Normal <5.10 [facility] Comment on above: Order Comment: Tremayne fly Type: BLOOD SPECIMEN Ordering Facility: [facility] Address: [address] [place] [address] Performed By: #### 5 7021-8 #### [facility] CLIA [id number] [address] [place] [address] [place] FASTING TIME Normal [facility] Comment on above: Order Comment: Speci men Type: BLOOD SPECIMEN Ordering Facility: [facility] Address: [address] [place] [address] Result Comment: Unkn own Performed By: #### 5 7021-8 #### [facility] CLIA [id number] [address] [place] [address] STATES [facility] Triglyceride [Mass/Vol] 115 mg/dL Normal <150 [facility] Comment on above: Order Comment: Speci men Type: BLOOD SPECIMEN Ordering Facility: [facility] Address: [address] [place] [address] Result Comment: <150 mg/dL, Normal 150-199 mg/dL, Borderline high 200-499 mg/dL, High >499 mg/dL, Very high Performed By: #### 5 7021-8 #### [facility] CLIA [id number] [address] [place] [address] NURSING PROGon 10-31-2023 NURSING PROG HNO ID: [id number] Author: Cortez AZEVEDO RN Service: Nursing Author Type: Registered Nurse Type: Nursing Progress Note Filed: 10/31/2023 22:01 Note Text: 2150: The following text page was sent to House: R.N. in [id number] has bruising around right groin cath site. The area is soft AND patient denies pain. There is a small amount of old blood under the dressing. -[id number] 2200: FROY Carlin, at bedside. This RN instructed to continue to monitor and notify House if any changes. Normal [facility] NURSING PROG HNO ID: [id number] Author: TANG WILLETT RN Service: Nursing Author Type: Registered Nurse Type: Nursing Progress Note Filed: 10/31/2023 18:09 Note Text: 0930 - Dr. Covarrubias in to assess 0945 - Dr. Covarrubias called this nurse to inform that patient would be having catheterization today; states that it is ok that patient at breakfast 0955 - call received from Dr. Toscano in regards to patient plan; made aware of plan for catheterization 0955 - call received from Ashley in laboratory aide for hand off; all questions asked were answered; d/t patient having fredo Ramirez states that she wants to verify with Dr. Covarrubias that it is ok that patient had teresais 1025 - patient left for laboratory aide 1200 - report received from laboratory aide from [place]; patient had right wrist radial and right groin venous; other details listed in notes from laboratory aide in regards to medication and process to stop bleeding as patient requires sand bag to groin and extra pressure. 1330 - patient's came to room; updated 1620 - patient returned to room at this time; wrist site dressing clean, dry, and intact; groin site dressing intact with a small amount of blood under occlusive dressing. 1700 - Dr. Toscano in to assess; plan to discharge tomorrow after Dr. Covarrubias explains what happened with procedure to patient 1755 - Dr. Covarrubias called this nurse to disuss message as patient is exhibiting intermittent confusion; is easily reoriented but is saying she needs to feed her dog and she missed a phone call that was verified that she didn't receive. 1805 - Dr. Covarrubias called in to speak to patient; call transferred. Normal [facility] NURSING PROG HNO ID: [id number] Author: GILES SILVESTRE, VIKTOR Service: Nursing Author Type: Registered Nurse Type: Nursing Progress Note Filed: 10/31/2023 16:47 Note Text: 1245 Pt to recovery room s/p left and right heart cath. Pt is awake and alert; SMITH. Denies complaints of pain or nausea at this time, but states, I just don't feel good . SB noted on the monitor; HR 50's. SBP 120's-130's. TR band in place to right radial; site is without bleeding or hematoma. Pulses present. Right brachial site CHIP SEPARATOR; ecchymosis noted, no hematoma. Pulse present. Right groin site is free of bleeding or hematoma at this time. Pulses present. Pt instructed on activity restrictions; verbalized understanding. External urine catheter in place. 1300 TR band deflation initiated without difficulty. No bleeding or hematoma noted from right radial site. Hematoma noted to right groin, manual pressure applied for 15 minutes, hematoma resolved. Pulses present. Pt complaining of discomfort at right groin site when pressure held. No other complaints noted at this time. 1400 Continuing to intermittently hold pressure to right groin site for recurring hematoma. Sandbag applied. Dr Covarrubias at bedside and updated on patient's condition. Ok to maintain sandbag. If her right groin site remains free of hematoma, ok to return patient back to [facility] per Dr Covarrubias. 1405 TR band removed without difficulty; dressing applied. No bleeding or hematoma noted. 1420 Pt medicated with Compazine and Fentanyl for complaints of nausea and discomfort to right groin site. 1440 Pt states nausea improved; only having pain to right groin with manual pressure. No other complaints noted at this time. 1455 Treva Martinez NP at bedside evaluating patient groin. Will maintain patient flat with sandbag until 1530, then will sit up. If no hematoma, ok to transport patient to [facility] at 1600. 1530 Pt sitting up in bed; denies dizziness or lightheadedness. Right groin site remains free of bleeding or hematoma. No voiced complaints at this time. 1600 Treva Martinez NP at bedside to reevaluate patient. No bleeding or hematoma noted to right groin. Dressing to right radial site dry and intact; no bleeding or hematoma noted. Ok to transport pt back to [facility]. 1610 Report called to VIKTOR Aguilar. Update provided to Dr Covarrubias. 1615 Pt transported back to [facility] via bed. 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 PROCEDURE REPORT SERVICE DATE: 10/31/2023 SERVICE TIME: 11:00 AM COPY MANAGER: Vasyl Covarrubias MD ATTENDING: Ata Toscano MD PRIMARY CARE PHYSICIAN: Demarco Newell MD REFERRING PROVIDER: BANGLADESHI STUDY OF HEALTH and AGING SCALE:4=Vulnerable CARDIOVASCULAR INSTABILITY:No PRE-PROCEDURE DIAGNOSIS: Anginal Equivalent Valvular Heart Disease POST PROCEDURE DIAGNOSIS: [place] Coronary Artery Disease Moderate 70% in-stent restenosis of the proximal RCA stent Patent mid LAD stent No other high-grade stenosis Elevated wedge pressure 22 and mildly reduced cardiac output [5.2/2.7] and pulmonary hypertension 49/16 Limitations due to renal function but was more unstable recently. Consider VIOLA or CMR PROCEDURE: Left Heart Catheterization Coronary Angiography. LV Gram Right Heart Catheterization MODERATE SEDATION: Moderate Sedation provided by Cardiology Nursing Staff. Moderate sedation consisting of continuous ECG, pulse oximetry and cardiopulmonary monitoring was performed by the Cardiology Nurse, overseen by supervising physician, for an intra-service time of 0 hr. 30 min. Sedative Medications: Drug: Versed Dose: 1 mg Route: IV Drug: Fentanyl Dose: 50 mcg Route: IV PRIORITY AT TIME OF PROCEDURE: Elective SITE OF ENTRY: Groin:Right and Radial:Right Radial CONTRAST: Omnipaque 350 mg Iodine/mL (iohexol injection, solution): 40 mL LEFT HEART CATHETERIZATION AND FINDINGS: The patient was taken to the cardiac laboratory aide where the entry site was prepped and draped in a sterile manner. Under local anesthesic with 2% Lidocaine, the vessel was cannulated with Seldinger's technique using an arterial needle and Ultrasound was used to visualize and guide the entry into the vessal and a 5F and 7F sheath was introduced. Selective injections were made in the left and right coronary arteries and various right, left and oblique views were obtained. The aortic valve was crossed and hemodynamic measurements were recorded. LV Angiogram was performed. ADDITIONAL PROCEDURES: CORONARY ANGIOGRAPHY: LEFT MAIN TRUNK: No Stenosis LEFT ANTERIOR DESCENDING: Stent Present with No Stenosis Location: Mid DIAGONAL #1: No Stenosis DIAGONAL #2: No Stenosis LEFT CIRCUMFLEX: No Stenosis MARGINAL #1: No Stenosis MARGINAL #2: No Stenosis DOMINANT: NO RIGHT CORONARY: Stent Present with 70% Stenosis Location: Proximal DOMINANT: YES POSTERIOR DESCENDING: No Stenosis POSTERIOR LATERAL: No Stenosis COLLATERAL CIRCULATION: Not Present LV GRAM: LVEF: Normal ( 55% or Greater) WALL MOTION: Normal MITRAL VALVE REGURGITATION: Not Assessed HEMODYNAMICS: LVEDP: 11 LV - AORTA: No Gradient RIGHT HEART CATHETERIZATION AND FINDINGS: Under local anesthesic with 2% Lidocaine, the vessel was cannulated directly using a Cook needle and a 7F sheath was inserted percutaneously over the wire using a S-Tipped Han[place] Kiran catheter. The catheter was advanced under fluoroscopy through the right atrium, right ventricle, pulmonary artery and wedge position. Pressure measurements were obtained. Cardiac output was completed using thermodilution Elizabeth technique. RIGHT HEMODYNAMICS: Right Atrium: 29/28 [12] Right Ventricle: 49/8 [14] Pulmonary Artery: 48/16 [30]. PA O2 sat 62%, aortic sat 91% PCWP: 27/27 [20] Cardiac Output: 5.2 by Elizabeth, 4.10 by thermal Cardiac Index: 2.75 by Elizabeth, 2.18 by thermal SVR: 970 by Elizabeth, 1230 by thermal PVR: 154 by Elizabeth, 195 by thermal The sheath was removed and hemostatsis was established using manual pressure using wrist band. There was no bleeding at the end of the procedure. The pt was returned to the recovery room in a stable condition. The sheath was removed and hemostatsis was established using manual pressure. There was no bleeding at the end of the procedure. The pt was returned to the recovery room in a stable condition. ESTIMATED BLOOD LOSS: Less Than Minimal Unless Noted Here. COMPLICATIONS: None SPECIMENS: No specimens obtained unless noted here. CONDITION: Stable RECOMMENDATIONS: Follow protocol of post-op orders. SIGNATURE: Vasyl Covarrubias MD PATIENT NAME: Cece Hubbard DATE: October 31, 2023 TIME: 12:00 PM Normal [facility] T3Free SerPl-mCncon 10-31-19 24 Free T3 [Mass/Vol] 2.5 pg/mL Normal 2.3-4.1 [facility] Comment on above: Order Comment: Speci men Type: BLOOD SPECIMEN Ordering Facility: [facility] Address: [address] [place] [address] Performed By: #### 5 7021-8 #### [facility] CLIA [id number] [address] [place] [address] [place] T4 Free SerPl-mCncon 024 Free T4 [Mass/Vol] 1.0 ng/dL Normal 0.9-1.7 [facility] Comment on above: Order Comment: Speci men Type: BLOOD SPECIMEN Ordering Facility: [facility] Address: [address] [place] [address] Performed By: #### 5 7021-8 #### [facility] CLIA [id number] [address] [place] [address] [place] CBC W Auto Differential pane l (Bld)on 03-21-2024 Basophils (Bld) [#/Vol] 0.05 10*3/uL Normal <0.11 [facility] Comment on above: Order Comment: Speci men Type: BLOOD SPECIMEN Ordering Facility: [facility] Address: [address] [place] [address] Performed By: #### 5 7021-8 #### [facility] CLIA [id number] [address] [place] [address] [place] Basophils/100 WBC (Bld) 0.8 % Normal [facility] Comment on above: Order Comment: Speci men Type: BLOOD SPECIMEN Ordering Facility: [facility] Address: [address] [place] [address] Performed By: #### 5 7021-8 #### [facility] CLIA [id number] [address] [place] [address] [place] Differential cell count method Nom (Bld) Auto Normal [facility] Comment on above: Order Comment: Speci men Type: BLOOD SPECIMEN Ordering Facility: [facility] Address: [address] [place] [address] Performed By: #### 5 7021-8 #### [facility] CLIA [id number] [address] [place] [address] [place] Eosinophils (Bld) [#/Vol] 0.20 10*3/uL Normal <0.46 [facility] Comment on above: Order Comment: Speci men Type: BLOOD SPECIMEN Ordering Facility: [facility] Address: [address] [place] [address] Performed By: #### 5 7021-8 #### [facility] CLIA [id number] [address] [place] [address] [place] Eosinophils/100 WBC (Bld) 3.2 % Normal [facility] Comment on above: Order Comment: Speci men Type: BLOOD SPECIMEN Ordering Facility: [facility] Address: [address] [place] [address] Performed By: #### 5 7021-8 #### [facility] CLIA [id number] [address] [place] [address] [place] Erythrocyte distribution width (RBC) [Ratio] 13.2 % Normal 11.5-15.0 [facility] Comment on above: Order Comment: Speci men Type: BLOOD SPECIMEN Ordering Facility: [facility] Address: [address] [place] [address] Performed By: #### 5 7021-8 #### [facility] CLIA [id number] [address] [place] [address] [place] Hematocrit (Bld) [Volume fraction] 36.8 % Normal 36.0-46.0 [facility] Comment on above: Order Comment: Speci men Type: BLOOD SPECIMEN Ordering Facility: [facility] Address: [address] [place] [address] Performed By: #### 5 7021-8 #### [facility] CLIA [id number] [address] [place] [address] [place] Hemoglobin (Bld) [Mass/Vol] 12.3 g/dL Normal 11.5-15.5 [facility] Comment on above: Order Comment: Speci men Type: BLOOD SPECIMEN Ordering Facility: [facility] Address: [address] [place] [address] Performed By: #### 5 7021-8 #### [facility] CLIA [id number] [address] [place] [address] [place] Immature granulocytes (Bld) [#/Vol] 10*3/uL Normal <0.10 [facility] Comment on above: Order Comment: Speci men Type: BLOOD SPECIMEN Ordering Facility: [facility] Address: [address] [place] [address] Performed By: #### 5 7021-8 #### [facility] CLIA [id number] [address] [place] [address] [place] Immature granulocytes/100 WBC (Bld) 0.3 % Normal [facility] Comment on above: Order Comment: Speci men Type: BLOOD SPECIMEN Ordering Facility: [facility] Address: [address] [place] [address] Performed By: #### 5 7021-8 #### [facility] CLIA [id number] [address] [place] [address] [place] Lymphocytes (Bld) [#/Vol] 1.91 10*3/uL Normal 1.00-4.00 [facility] Comment on above: Order Comment: Speci men Type: BLOOD SPECIMEN Ordering Facility: [facility] Address: [address] [place] [address] Performed By: #### 5 7021-8 #### [facility] CLIA [id number] [address] [place] [address] [place] Lymphocytes/100 WBC (Bld) 30.9 % Normal [facility] Comment on above: Order Comment: Speci men Type: BLOOD SPECIMEN Ordering Facility: [facility] Address: [address] [place] [address] Performed By: #### 5 7021-8 #### [facility] CLIA [id number] [address] [place] [address] [place] MCH (RBC) [Entitic mass] 31.7 pg Normal 26.0-34.0 [facility] Comment on above: Order Comment: Speci men Type: BLOOD SPECIMEN Ordering Facility: [facility] Address: [address] [place] [address] Performed By: #### 5 7021-8 #### [facility] CLIA [id number] [address] [place] [address] [place] MCHC (RBC) [Mass/Vol] 33.4 g/dL Normal 30.5-36.0 [facility] Comment on above: Order Comment: Speci men Type: BLOOD SPECIMEN Ordering Facility: [facility] Address: [address] [place] [address] Performed By: #### 5 7021-8 #### [facility] CLIA [id number] [address] [place] [address] [place] MCV (RBC) [Entitic vol] 94.8 fL Normal 80.0-100.0 [facility] Comment on above: Order Comment: Speci men Type: BLOOD SPECIMEN Ordering Facility: [facility] Address: [address] [place] [address] Performed By: #### 5 7021-8 #### [facility] CLIA [id number] [address] [place] [address] [place] Monocytes (Bld) [#/Vol] 0.74 10*3/uL Normal <0.87 [facility] Comment on above: Order Comment: Speci men Type: BLOOD SPECIMEN Ordering Facility: [facility] Address: [address] [place] [address] Performed By: #### 5 7021-8 #### [facility] CLIA [id number] [address] [place] [address] [place] Monocytes/100 WBC (Bld) 12.0 % Normal [facility] Comment on above: Order Comment: Speci men Type: BLOOD SPECIMEN Ordering Facility: [facility] Address: [address] [place] [address] Performed By: #### 5 7021-8 #### [facility] CLIA [id number] [address] [place] [address] [place] Neutrophils (Bld) [#/Vol] 3.27 10*3/uL Normal 1.45-7.50 [facility] Comment on above: Order Comment: Speci men Type: BLOOD SPECIMEN Ordering Facility: [facility] Address: [address] [place] [address] Performed By: #### 5 7021-8 #### [facility] CLIA [id number] [address] [place] [address] [place] Neutrophils/100 WBC (Bld) 52.8 % Normal [facility] Comment on above: Order Comment: Speci men Type: BLOOD SPECIMEN Ordering Facility: [facility] Address: [address] [place] [address] Performed By: #### 5 7021-8 #### [facility] CLIA [id number] [address] [place] [address] [place] Nucleated RBC (Bld) [#/Vol] 10*3/uL Normal <0.01 [facility] Comment on above: Order Comment: Speci men Type: BLOOD SPECIMEN Ordering Facility: [facility] Address: [address] [place] [address] Performed By: #### 5 7021-8 #### [facility] CLIA [id number] [address] [place] [address] [place] Nucleated RBC/100 WBC (Bld) [Ratio] 0.0 /100 WBC Normal [facility] Comment on above: Order Comment: Speci men Type: BLOOD SPECIMEN Ordering Facility: [facility] Address: [address] [place] [address] Performed By: #### 5 7021-8 #### [facility] CLIA [id number] [address] [place] [address] [place] Platelet mean volume (Bld) [Entitic vol] 11.3 fL Normal 9.0-12.7 [facility] Comment on above: Order Comment: Speci men Type: BLOOD SPECIMEN Ordering Facility: [facility] Address: [address] [place] [address] Performed By: #### 5 7021-8 #### [facility] CLIA [id number] [address] [place] [address] [place] Platelets (Bld) [#/Vol] 180 10*3/uL Normal 150-400 [facility] Comment on above: Order Comment: Speci men Type: BLOOD SPECIMEN Ordering Facility: [facility] Address: [address] [place] [address] Performed By: #### 5 7021-8 #### [facility] CLIA [id number] [address] [place] [address] [place] RBC (Bld) [#/Vol] 3.88 10*6/uL Low 3.90-5.20 [facility] Comment on above: Order Comment: Speci men Type: BLOOD SPECIMEN Ordering Facility: [facility] Address: [address] [place] [address] Performed By: #### 5 7021-8 #### [facility] CLIA [id number] [address] [place] [address] [place] WBC (Bld) [#/Vol] 6.19 10*3/uL Normal 3.70-11.00 [facility] Comment on above: Order Comment: Speci men Type: BLOOD SPECIMEN Ordering Facility: [facility] Address: [address] [place] [address] Performed By: #### 5 7021-8 #### [facility] [id number] [address] [place] [address] CONSULT PROGon 10-30-2023 CONSULT PROG HNO ID: [id number] Author: MCKENZIE THAKKAR MD Service: Nephrology Author Type: Physician Type: Consult Progress Note Filed: 10/30/2023 14:58 Note Text: CONSULT PROGRESS NOTE SERVICE DATE: 10/30/2023 SERVICE TIME: 2:56pm Subjective INTERVAL HPI: interval events reviewed Denied sob at rest Current Facility-Administered Medications Medication Dose Route Frequency NaCl 0.9% iv flush bag 20 mL INTRAVENOUS PRN melatonin 6 mg tab(s) 6 mg ORAL AT BEDTIME PRN acetaminophen 500-1,000 mg tab(s) (TYLENOL) 500-1,000 mg ORAL q 6 H PRN ondansetron (PF) 4 mg injection (ZOFRAN) 4 mg INTRAVENOUS q 6 H PRN senna-docusate 8.6-50 mg 1-2 tablet (SENNA-S) 1-2 tablet ORAL BID PRN atorvastatin 40 mg tab(s) (LIPITOR) 40 mg ORAL DAILY hydrALAZINE 25 mg tab(s) (APRESOLINE) 25 mg ORAL q [address] 40 mg tab(s) (PROTONIX) 40 mg ORAL DAILY (6 AM) apixaban 5 mg tab(s) (ELIQUIS) 5 mg ORAL q 12 H liothyronine 5 mcg tab(s) (CYTOMEL) 5 mcg ORAL BEFORE BREAKFAST DAILY isosorbide mononitrate ER 30 mg tab(s) (IMDUR) 30 mg ORAL DAILY escitalopram oxalate 10 mg tab(s) (LEXAPRO) 10 mg ORAL DAILY aspirin, enteric coated 81 mg tab(s) 81 mg ORAL DAILY sodium chloride 0.9 % (flush) 2-10 mL (BD POSIFLUSH) 2-10 mL INTRAVENOUS DIRECTED PRN And perflutren lipid microspheres 1.1 mg/mL 1.3 mL injection (DEFINITY) 1.3 mL INTRAVENOUS DIRECTED PRN metoprolol succinate ER 25 mg tab(s) (TOPROL XL) 25 mg ORAL DAILY Objective PHYSICAL EXAM: Physical Exam Performed: BP 117/57 Pulse 49 Temp (Src) 97.3 (Oral) Resp 18 Ht 5' 3 (1.60m) Wt 186 lb 12.8 oz (84.7kg) SpO2 97% BMI 33.10 kg/(m2). 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 CHF Mitral regurgitation CAD Pafib HTN Plan Creatinine is trending down May resume maintenance lasix 20mg daily tomorrow Would hold ARB for now F/u renal clinic after discharge and consider resuming cozaar as outpt SIGNATURE: Mckenzie Zuniga MD PATIENT NAME: Cece Hubbard DATE: October 30, 2023 TIME: 2:56 PM PAGER: [facility] CONSULT PROG HNO ID: [id number] Author: VASYL COVARRUBIAS MD Service: Cardiovascular Medicine Author Type: Physician Type: Consult Progress Note Filed: 10/31/2023 07:02 Note Text: CARDIOLOGY CONSULT PROGRESS NOTE SERVICE DATE: 10/30/2023 Time: 9:14 AM ATTENDING: Ata Toscano MD 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 Helper: Vasyl Covarrubias MD ASSESSMENT: Admitted with worsening dyspnea HFpEF, moderately severe MR ([place] 07/2023: MR ERO 0.33 cm2, MR volume 67cm.)and mild to moderate AI at [facility], says was being considered for MVR LAY on CKD Paroxysmal A-fib diagnosed 1 month ago started amiodarone AC Eliquis CAD PCI LAD Synergy 03/2022 ; PCI RCA Synergy 3.0 x 20 in 05/2020, [place] stress test reported normal 07/2023 Hypertension Hyperlipidemia, at home on statin Thyroid disease, BMI 32, GERD, depression anxiety, back and knee surgeries Card meds [employer]: Eliquis 5 twice daily, losartan 100 daily, Imdur 30 daily, hydralazine 25 twice daily, Lasix 20 daily, K-Dur 10 daily, Lipitor 40 daily RECOMMENDATIONS: Okay to go home Outpatient heart cath Discussed with pt and with nursing staff. VITAL SIGNS (last recorded): 10/29/23 1907 10/29/23203210/30/23 0441 10/30/23 0734 BP: 108/73 125/69 142/50 Pulse: (!) 59 (!) 54 (!) 57 Resp: 18 18 Temp: 36.3 ?C (97.3 ?F) 36.5 ?C (97.7 ?F) TempSrc: Axillary Oral Oral SpO2: 96% 97% 96% Weight: 84.4 kg (186 lb) 84.7 kg (186 lb 12.8 oz) Height: Comfortable, not in acute distress. INTERIM HISTORY: No chest pain breathing better comfortable MEDICATIONS: Current Facility-Administered Medications: venlafaxine ER 75 mg cap(s) (EFFEXOR XR) metoprolol succinate ER 25 mg tab(s) (TOPROL XL) NaCl 0.9% iv flush bag melatonin 6 mg tab(s) acetaminophen 500-1,000 mg tab(s) (TYLENOL) ondansetron (PF) 4 mg injection (ZOFRAN) senna-docusate 8.6-50 mg 1-2 tablet (SENNA-S) atorvastatin 40 mg tab(s) (LIPITOR) hydrALAZINE 25 mg tab(s) (APRESOLINE) pantoprazole DR 40 mg tab(s) (PROTONIX) apixaban 5 mg tab(s) (ELIQUIS) liothyronine 5 mcg tab(s) (CYTOMEL) isosorbide mononitrate ER 30 mg tab(s) (IMDUR) escitalopram oxalate 10 mg tab(s) (LEXAPRO) aspirin, enteric coated 81 mg tab(s) [COMPLETED] ECHO AND sodium chloride 0.9 % (flush) 2-10 mL (BD POSIFLUSH) AND perflutren lipid microspheres 1.1 mg/mL 1.3 mL injection (DEFINITY) PHYSICAL EXAM: Body mass index is 33.09 kg/m?. Awake, alert LUNGS: Decreased BSs bilaterally. CARDIAC: S1 and S2 systolic murmur EXTREMITIES: No edema. DATA: Diagnostic tests reviewed for today's visit: Reviewed recent relevant labs, EKG and imaging results. CBC, Coags, BMP, Mg, Phos Recent Labs 10/30/23 0510/29/23 0428 10/28/23 0549 WBC 6.19 6.30 6.06 HB 12.3 12.6 11.9 HCT 36.8 37.0 36.1 PLT 180 178 174 NA 139 138 139 K 4.3 4.2 4.3 CHLOR 105 99 103 CO2 23 27 27 BUN 32* 37* 29* CREAT 1.53* 1.82* 1.54* GLUC 95 101* 97 CA 9.2 9.4 9.3 MG 2.1 -- 2.0 Liver Function, Amylase, AND Lipase Recent Labs 10/30/23 0520 10/29/23 0428 10/28/23 0549 TPROT 6.1* 6.4 6.1* ALB 3.7* 4.2 4.1 ALT 10 11 11 AST 11* 13 11* ALKPHOS 82 91 86 TBILI 0.5 0.6 0.6 Cardiac Enzymes ABGs Last Lab Drawn: Recent Labs 10/29/23427 PBNP 245 Recent Labs 10/29/238 HSTNT 21* Thank you, Recommendations are communicated via shared electronic medical records. This note was partially generated using voice recognition system, there may be some incorrect words, spellings, and punctuation that were not noted in checking the note before saving. SIGNATURE: Vasyl Covarrubias MD PATIENT NAME: Cece Hubbard DATE: 10/30/2023 TIME: 9:14 AM call 24 hour service line Normal [facility] Comprehensive metabolic 2000 panelon 10-30-2023 Albumin [Mass/Vol] 3.7 g/dL Low 3.9-4.9 [facility] Comment on above: Order Comment: Speci men Type: BLOOD SPECIMEN Ordering Facility: [facility] Address: [address] [place] [address] Performed By: #### 5 7021-8 #### [facility] CLIA [id number] [address] [place] [address] [place] ALP [Catalytic activity/Vol] 82 U/L Normal 34-123 [facility] Comment on above: Order Comment: Speci men Type: BLOOD SPECIMEN Ordering Facility: [facility] Address: [address] [place] [address] Performed By: #### 5 7021-8 #### [facility] CLIA [id number] [address] [place] [address] [place] ALT [Catalytic activity/Vol] 10 U/L Normal 7-38 [facility] Comment on above: Order Comment: Speci men Type: BLOOD SPECIMEN Ordering Facility: [facility] Address: [address] [place] [address] Performed By: #### 5 7021-8 #### [facility] CLIA [id number] [address] [place] [address] [place] Anion gap [Moles/Vol] 11 mmol/L Normal 9-18 [facility] Comment on above: Order Comment: Speci men Type: BLOOD SPECIMEN Ordering Facility: [facility] Address: [address] [place] [address] Performed By: #### 5 7021-8 #### [facility] CLIA [id number] [address] [place] [address] [place] AST [Catalytic activity/Vol] 11 U/L Low 13-35 [facility] Comment on above: Order Comment: Speci men Type: BLOOD SPECIMEN Ordering Facility: [facility] Address: [address] [place] [address] Performed By: #### 5 7021-8 #### [facility] CLIA [id number] [address] [place] [address] [place] Bilirubin [Mass/Vol] 0.5 mg/dL Normal 0.2-1.3 [facility] Comment on above: Order Comment: Speci men Type: BLOOD SPECIMEN Ordering Facility: [facility] Address: [address] [place] [address] Performed By: #### 5 7021-8 #### [facility] CLIA [id number] [address] [place] [address] [place] Calcium [Mass/Vol] 9.2 mg/dL Normal 8.5-10.2 [facility] Comment on above: Order Comment: Speci men Type: BLOOD SPECIMEN Ordering Facility: [facility] Address: [address] [place] [address] Performed By: #### 5 7021-8 #### [facility] CLIA [id number] [address] [place] [address] [place] Chloride [Moles/Vol] 105 mmol/L Normal 97-105 [facility] Comment on above: Order Comment: Speci men Type: BLOOD SPECIMEN Ordering Facility: [facility] Address: [address] [place] [address] Performed By: #### 5 7021-8 #### [facility] CLIA [id number] [address] [place] [address] [place] CO2 [Moles/Vol] 23 mmol/L Normal 22-30 [facility] Comment on above: Order Comment: Speci men Type: BLOOD SPECIMEN Ordering Facility: [facility] Address: [address] [place] [address] Performed By: #### 5 7021-8 #### [facility] CLIA [id number] [address] [place] [address] [place] Creatinine [Mass/Vol] 1.53 mg/dL High 0.58-0.96 [facility] Comment on above: Order Comment: Speci men Type: BLOOD SPECIMEN Ordering Facility: [facility] Address: [address] [place] [address] Performed By: #### 5 7021-8 #### [facility] CLIA [id number] [address] [place] [address] [place] Creatinine and Glomerular filtration rate.predicted panel (S/P/Bld) 35 mL/min/1.73m??? Low >=60 [facility] Comment on above: Order Comment: Tremayne bill Type: BLOOD SPECIMEN Ordering Facility: [facility] Address: [address] [place] [address] Result Comment: Amy mated Glomerular Filtration Rate [...] accurately reflect actual GFR. Performed By: #### 5 7021-8 #### [facility] CLIA [id number] [address] [place] [address] [place] Glucose [Mass/Vol] 95 mg/dL Normal 74-99 [facility] Comment on above: Order Comment: Tremayne bill Type: BLOOD SPECIMEN Ordering Facility: [facility] Address: [address] [place] [address] Result Comment: The [place] Diabetes Association (ADA) provides guidance for cutoff [...] Standards of Medical Care in Diabetes 2016, [place] [employer]. Diabetes Care. 2016.39(Suppl 1). Performed By: #### 5 7021-8 #### [facility] CLIA [id number] [address] [place] [address] [place] Potassium [Moles/Vol] 4.3 mmol/L Normal 3.7-5.1 [facility] Comment on above: Order Comment: Tremayne bill Type: BLOOD SPECIMEN Ordering Facility: [facility] Address: [address] [place] [address] Performed By: #### 5 7021-8 #### [facility] CLIA [id number] [address] [place] [address] [place] Protein [Mass/Vol] 6.1 g/dL Low 6.3-8.0 [facility] Comment on above: Order Comment: Speci men Type: BLOOD SPECIMEN Ordering Facility: [facility] Address: [address] [place] [address] Performed By: #### 5 7021-8 #### [facility] CLIA [id number] [address] [place] [address] [place] Sodium [Moles/Vol] 139 mmol/L Normal 136-144 [facility] Comment on above: Order Comment: Speci men Type: BLOOD SPECIMEN Ordering Facility: [facility] Address: [address] [place] [address] Performed By: #### 5 7021-8 #### [facility] CLIA [id number] [address] [place] [address] [place] Urea nitrogen [Mass/Vol] 32 mg/dL High 02-28 [facility] Comment on above: Order Comment: Speci men Type: BLOOD SPECIMEN Ordering Facility: [facility] Address: [address] [place] [address] Performed By: #### 5 7021-8 #### [facility] CLIA [id number] [address] [place] [address] [place] Magnesium SerPl-mCncon 10-29 Magnesium [Mass/Vol] 2.1 mg/dL Normal 1.7-2.3 [facility] Comment on above: Order Comment: Speci men Type: BLOOD SPECIMEN Ordering Facility: [facility] Address: [address] [place] [address] Performed By: #### 5 7021-8 #### [facility] CLIA [id number] [address] [place] [address] [place] CBC W Auto Differential pane l (Bld)on 10-29-2023 Basophils (Bld) [#/Vol] 0.06 10*3/uL Normal <0.11 [facility] Comment on above: Order Comment: Speci men Type: BLOOD SPECIMENOrdering Facility: [facility] Address: [address] [place] [address] Performed By: #### 5 7021-8 ####[facility] [id number] [place] [address] [place] Basophils/100 WBC (Bld) 1.0 % Normal [facility] Comment on above: Order Comment: Speci men Type: BLOOD SPECIMENOrdering Facility: [facility] Address: [address] [place] [address] Performed By: #### 5 7021-8 ####[facility] [id number] [place] [address] [place] Differential cell count method Nom (Bld) Auto Normal [facility] Comment on above: Order Comment: Speci men Type: BLOOD SPECIMENOrdering Facility: [facility] Address: [address] [place] [address] Performed By: #### 5 7021-8 ####[facility] [id number] [place] [address] [place] Eosinophils (Bld) [#/Vol] 0.17 10*3/uL Normal <0.46 [facility] Comment on above: Order Comment: Speci men Type: BLOOD SPECIMENOrdering Facility: [facility] Address: [address] [place] [address] Performed By: #### 5 7021-8 ####[facility] [id number] [place] [id number] [place] Eosinophils/100 WBC (Bld) 2.7 % Normal [facility] Comment on above: Order Comment: Speci men Type: BLOOD SPECIMENOrdering Facility: [facility] Address: [address] [place] [address] Performed By: #### 5 7021-8 ####[facility] [id number] [place] [address] [place] Erythrocyte distribution width (RBC) [Ratio] 13.0 % Normal 11.5-15.0 [facility] Comment on above: Order Comment: Speci men Type: BLOOD SPECIMENOrdering Facility: [facility] Address: [address] [place] [address] Performed By: #### 5 7021-8 ####[facility] [id number] [place] [id number] [place] Hematocrit (Bld) [Volume fraction] 37.0 % Normal 36.0-46.0 [facility] Comment on above: Order Comment: Speci men Type: BLOOD SPECIMENOrdering Facility: [facility] Address: [address] [place] [address] Performed By: #### 5 7021-8 ####[facility]ATORYCLIA [id number] [place] [address] [place] Hemoglobin (Bld) [Mass/Vol] 12.6 g/dL Normal 11.5-15.5 [facility] Comment on above: Order Comment: Speci men Type: BLOOD SPECIMENOrdering Facility: [facility] Address: [address] [place] [address] Performed By: #### 5 7021-8 ####[facility] [id number] [place] [address] [place] Immature granulocytes (Bld) [#/Vol] 10*3/uL Normal <0.10 [facility] Comment on above: Order Comment: Speci men Type: BLOOD SPECIMENOrdering Facility: [facility] Address: [address] [place] [address] Performed By: #### 5 7021-8 ####[facility] [id number] [place] [address] [place] Immature granulocytes/100 WBC (Bld) 0.3 % Normal [facility] Comment on above: Order Comment: Speci men Type: BLOOD SPECIMENOrdering Facility: [facility] Address: [address] [place] [address] Performed By: #### 5 7021-8 ####[facility] [id number] [place] [address] [place] Lymphocytes (Bld) [#/Vol] 1.70 10*3/uL Normal 1.00-4.00 [facility] Comment on above: Order Comment: Speci men Type: BLOOD SPECIMENOrdering Facility: [facility] Address: [address] [place] [address] Performed By: #### 5 7021-8 ####[facility]ORYCLIA [id number] [place] [address] [place] Lymphocytes/100 WBC (Bld) 27.0 % Normal [facility] Comment on above: Order Comment: Speci men Type: BLOOD SPECIMENOrdering Facility: [facility] Address: [address] [place] [address] Performed By: #### 5 7021-8 ####[facility]ORYCLIA [id number] [place] [address] [place] MCH (RBC) [Entitic mass] 31.8 pg Normal 26.0-34.0 [facility] Comment on above: Order Comment: Speci men Type: BLOOD SPECIMENOrdering Facility: [facility] Address: [address] [place] [address] Performed By: #### 5 7021-8 ####[facility]ORYCLIA [id number] [place] [address] [place] MCHC (RBC) [Mass/Vol] 34.1 g/dL Normal 30.5-36.0 [facility] Comment on above: Order Comment: Speci men Type: BLOOD SPECIMENOrdering Facility: [facility] Address: [address] [place] [address] Performed By: #### 5 7021-8 ####[facility]ORYCLIA [id number] [place] [address] [place] MCV (RBC) [Entitic vol] 93.4 fL Normal 80.0-100.0 [facility] Comment on above: Order Comment: Speci men Type: BLOOD SPECIMENOrdering Facility: [facility] Address: [address] [place] [address] Performed By: #### 5 7021-8 ####[facility]ORYCLIA [id number] [place] [address] [place] Monocytes (Bld) [#/Vol] 0.71 10*3/uL Normal <0.87 [facility] Comment on above: Order Comment: Speci men Type: BLOOD SPECIMENOrdering Facility: [facility] Address: [address] [place] [address] Performed By: #### 5 7021-8 ####[facility] [id number] [place] [id number] [place] Monocytes/100 WBC (Bld) 11.3 % Normal [facility] Comment on above: Order Comment: Speci men Type: BLOOD SPECIMENOrdering Facility: [facility] Address: [address] [place] [address] Performed By: #### 5 7021-8 ####[facility] [id number] [place] [address] [place] Neutrophils (Bld) [#/Vol] 3.64 10*3/uL Normal 1.45-7.50 [facility] Comment on above: Order Comment: Speci men Type: BLOOD SPECIMENOrdering Facility: [facility] Address: [address] [place] [address] Performed By: #### 5 7021-8 ####[facility] [id number] [place] [address] [place] Neutrophils/100 WBC (Bld) 57.7 % Normal [facility] Comment on above: Order Comment: Speci men Type: BLOOD SPECIMENOrdering Facility: [facility] Address: [address] [place] [address] Performed By: #### 5 7021-8 ####[facility] [id number] [place] [id number] [place] Nucleated RBC (Bld) [#/Vol] 10*3/uL Normal <0.01 [facility] Comment on above: Order Comment: Speci men Type: BLOOD SPECIMENOrdering Facility: [facility] Address: [address] [place] [address] Performed By: #### 5 7021-8 ####[facility] [id number] [place] [address] [place] Nucleated RBC/100 WBC (Bld) [Ratio] 0.0 /100 WBC Normal [facility] Comment on above: Order Comment: Speci men Type: BLOOD SPECIMENOrdering Facility: [facility] Address: [address] [place] [address] Performed By: #### 5 7021-8 ####[facility]ORYCLIA [id number] [place] [address] [place] Platelet mean volume (Bld) [Entitic vol] 11.1 fL Normal 9.0-12.7 [facility] Comment on above: Order Comment: Speci men Type: BLOOD SPECIMENOrdering Facility: [facility] Address: [address] [place] [address] Performed By: #### 5 7021-8 ####[facility]ORYCLIA [id number] [place] [address] [place] Platelets (Bld) [#/Vol] 178 10*3/uL Normal 150-400 [facility] Comment on above: Order Comment: Speci men Type: BLOOD SPECIMENOrdering Facility: [facility] Address: [address] [place] [address] Performed By: #### 5 7021-8 ####[facility]ORYCLIA [id number] [place] [address] [place] RBC (Bld) [#/Vol] 3.96 10*6/uL Normal 3.90-5.20 [facility] Comment on above: Order Comment: Speci men Type: BLOOD SPECIMENOrdering Facility: [facility] Address: [address] [place] [address] Performed By: #### 5 7021-8 ####[facility]ORYCLIA [id number] [place] [id number] [place] WBC (Bld) [#/Vol] 6.30 10*3/uL Normal 3.70-11.00 [facility] Comment on above: Order Comment: Speci men Type: BLOOD SPECIMENOrdering Facility: [facility] Address: [address] [place] [address] Performed By: #### 5 7021-8 ####[facility] [id number] [place] [id number] [facility] CONSULTon 10-29-2023 CONSULT HNO ID: [id number] Author: MCKENZIE THAKKAR MD Service: Nephrology Author Type: Physician Type: Consults Filed: 10/29/2023 08:56 Note Text: CONSULT PROGRESS NOTE SERVICE DATE: 10/29/2023 SERVICE TIME: 8:50am 78 year old female who presented 10/25 w/ c/o worsening SOB and reduced ability to perform ADLs. Pt has a pmh of mod-severe MR, mild-mod AR/TR, CAD w/ BRITTNEY to LAD and RCA in 2019, HTN, hypothyroidism, HFpEF, HLD, GERD, depression, anxiety, and recent AF diagnosis about 1 month ago at [place] and started on amiodarone and Eliquis. Creatinine noted to increase to 1.8 Renal US 8.3/9.2 UA no protein No NSAID use No cp/sob at time of assessment Current Facility-Administered Medications Medication Dose Route Frequency NaCl 0.9% iv flush bag 20 mL INTRAVENOUS PRN melatonin 6 mg tab(s) 6 mg ORAL AT BEDTIME PRN acetaminophen 500-1,000 mg tab(s) (TYLENOL) 500-1,000 mg ORAL q 6 H PRN ondansetron (PF) 4 mg injection (ZOFRAN) 4 mg INTRAVENOUS q 6 H PRN senna-docusate 8.6-50 mg 1-2 tablet (SENNA-S) 1-2 tablet ORAL BID PRN atorvastatin 40 mg tab(s) (LIPITOR) 40 mg ORAL DAILY hydrALAZINE 25 mg tab(s) (APRESOLINE) 25 mg ORAL q [address] 40 mg tab(s) (PROTONIX) 40 mg ORAL DAILY (6 AM) apixaban 5 mg tab(s) (ELIQUIS) 5 mg ORAL q 12 H liothyronine 5 mcg tab(s) (CYTOMEL) 5 mcg ORAL BEFORE BREAKFAST DAILY isosorbide mononitrate ER 30 mg tab(s) (IMDUR) 30 mg ORAL DAILY escitalopram oxalate 10 mg tab(s) (LEXAPRO) 10 mg ORAL DAILY aspirin, enteric coated 81 mg tab(s) 81 mg ORAL DAILY sodium chloride 0.9 % (flush) 2-10 mL (BD POSIFLUSH) 2-10 mL INTRAVENOUS DIRECTED PRN And perflutren lipid microspheres 1.1 mg/mL 1.3 mL injection (DEFINITY) 1.3 mL INTRAVENOUS DIRECTED PRN metoprolol succinate ER 25 mg tab(s) (TOPROL XL) 25 mg ORAL DAILY NaCl 0.9% iv infusion 50 mL/hr INTRAVENOUS CONTINUOUS Objective PHYSICAL EXAM: Physical Exam Performed: BP 133/66 Pulse 55 Temp (Src) 98.1 (Oral) Resp 18 Ht 5' 3 (1.60m) Wt 186 lb 4.6 oz (84.5kg) SpO2 95% BMI 33.01 kg/(m2). 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 CHF Mitral regurgitation CAD Pafib HTN Plan Agree with holding lasix for 2-3 days Gentle IVF challenge as ordered Serial labs, strict I/Os Monitor for renal recovery Thank you SIGNATURE: Mckenzie Zuniga MD PATIENT NAME: Cece Hubbard DATE: October 29, 2023 TIME: 8:50 AM PAGER: Normal [facility] Comprehensive metabolic 2000 panelon 10-29-2023 Albumin [Mass/Vol] 4.2 g/dL Normal 3.9-4.9 [facility] Comment on above: Order Comment: Speci men Type: BLOOD SPECIMENOrdering Facility: [facility] Address: [address] [address] Performed By: #### 3 3762-6, [id number], 48989-0 ####[facility]ATORYCLIA [id number] [place] [address] [place] ALP [Catalytic activity/Vol] 91 U/L Normal 34-123 [facility] Comment on above: Order Comment: Speci men Type: BLOOD SPECIMENOrdering Facility: [facility] Address: [address] [place] [address] Performed By: #### 3 3762-6, [id number], 40254-0 ####[facility]ATORYCLIA [id number] [place] [id number] [place] ALT [Catalytic activity/Vol] 11 U/L Normal 7-38 [facility] Comment on above: Order Comment: Speci men Type: BLOOD SPECIMENOrdering Facility: [facility] Address: [address] [place] [address] Performed By: #### 3 3762-6, [id number], 58944-1 ####[facility]ATORYCLIA [id number] [place] [id number] [place] Anion gap [Moles/Vol] 12 mmol/L Normal 9-18 [facility] Comment on above: Order Comment: Speci men Type: BLOOD SPECIMENOrdering Facility: [facility] Address: [address] [place] [address] Performed By: #### 3 3762-6, [id number], 59579-1 ####[facility]ATORYCLIA [id number] [place] [id number] [place] AST [Catalytic activity/Vol] 13 U/L Normal 13-35 [facility] Comment on above: Order Comment: Speci men Type: BLOOD SPECIMENOrdering Facility: [facility] Address: [facility] [place] [address] Performed By: #### 3 3762-6, [id number], 16899-7 ####[facility]ORATORYCLIA [id number] [place] [address] [place] Bilirubin [Mass/Vol] 0.6 mg/dL Normal 0.2-1.3 [facility] Comment on above: Order Comment: Speci men Type: BLOOD SPECIMENOrdering Facility: [facility] Address: [address] [place] [address] Performed By: #### 3 3762-6, [id number], 04561-6 ####SAGE LABORATORYCLIA [id number] [place] [id number] [place] Calcium [Mass/Vol] 9.4 mg/dL Normal 8.5-10.2 [facility] [facility] Comment on above: Order Comment: Speci men Type: BLOOD SPECIMENOrdering Facility: [facility] Address: [address] [place] [address] Performed By: #### 3 3762-6, [id number], ####S[facility] LABORATORYCLIA [id number] [place] [address] [place] Chloride [Moles/Vol] 99 mmol/L Normal 97-105 [facility] Comment on above: Order Comment: Speci men Type: BLOOD SPECIMENOrdering Facility: [facility] Address: [address] [place] [address] Performed By: #### 3 3762-6, [id number], 94825-0 ####SAGE LABORATORYCLIA [id number] [place] [id number] [place] CO2 [Moles/Vol] 27 mmol/L Normal 22-30 [facility] Comment on above: Order Comment: Speci men Type: BLOOD SPECIMENOrdering Facility: [facility] Address: [address] [place] [address] Performed By: #### 3 3762-6, [id number], 82103-9 ####SAGE LABORATORYCLIA [id number] [place] [id number] [place] Creatinine [Mass/Vol] 1.82 mg/dL High 0.58-0.96 [facility] Comment on above: Order Comment: Speci men Type: BLOOD SPECIMENOrdering Facility: [facility] Address: [address] [place], [place] [address] Performed By: #### 3 3762-6, [id number], 75689-8 ####[facility] LABORATORYCLIA [id number] [place] [id number] [place] Creatinine and Glomerular filtration rate.predicted panel (S/P/Bld) 28 mL/min/1.73m??? Low >=60 [facility] Comment on above: Order Comment: [place] bill Type: BLOOD SPECIMENOrdering Facility: [facility] Address: [address] [place] [address] Result Comment: Amy mated Glomerular Filtration Rate [...] accurately reflect actual GFR. Performed By: #### 3 3762-6, [id number], 19329-6 ####O[facility]LL LABORATORYCLIA [id number] [place] [id number] [place] Glucose [Mass/Vol] 101 mg/dL High 74-99 [facility] Comment on above: Order Comment: [place] bill Type: BLOOD SPECIMENOrdering Facility: [facility] Address: [address] [place] [address] Result Comment: The [place] [employer] Association (ADA) provides guidance for cutoff [...] Standards of Medical Care in Diabetes 2016, [place] [employer]. Diabetes Care. 2016.39(Suppl 1). Performed By: #### 3 3762-6, [id number], 71260-0 ####O[facility]LL LABORATORYCLIA [id number] [place] [address] [place] Potassium [Moles/Vol] 4.2 mmol/L Normal 3.7-5.1 [facility] Comment on above: Order Comment: Speci men Type: BLOOD SPECIMENOrdering Facility: [facility] Address: [address] [place] [address] Performed By: #### 3 3762-6, [id number], ####SAGE LABORATORYCLIA [id number] [place] [id number] [place] Protein [Mass/Vol] 6.4 g/dL Normal 6.3-8.0 [facility] Comment on above: Order Comment: Speci men Type: BLOOD SPECIMENOrdering Facility: [facility] Address: [address] [place] [address] Performed By: #### 3 3762-6, [id number], ####SAGE LABORATORYCLIA [id number] [place] [address] [place] Sodium [Moles/Vol] 138 mmol/L Normal 136-144 [facility] Comment on above: Order Comment: Speci men Type: BLOOD SPECIMENOrdering Facility: [facility] Address: [address] [place] [address] Performed By: #### 3 3762-6, [id number], ####SAGE LABORATORYCLIA [id number] [place] [id number] [place] Urea nitrogen [Mass/Vol] 37 mg/dL High - [facility] Comment on above: Order Comment: Speci men Type: BLOOD SPECIMENOrdering Facility: [facility] Address: [address] [place] [address] Performed By: #### 3 3762-6, [id number], 25396-9 ####SAGE LABORATORYCLIA [id number] [place] [id number] [place] HIGH SENSITIVITY TROPONIN T (THIRD) 3 HRS AFTER INITIALon 10-29-2023 Troponin T.cardiac High sensitivity method [Mass/Vol] 21 ng/L High <12 [facility] Comment on above: Order Comment: [place]rem[place] bill Type: BLOOD SPECIMENOrdering Facility: [facility] Address: [address] [place] [address] Result Comment: When assessing risk for acute [...] for 30 day MACE. Performed By: #### 3 3762-6, [id number], 07160-5 ####SAGE LABORATORYCLIA [id number] [place] [id number] [facility] NT-proBNP [facility] 10-28 Natriuretic peptide.B prohormone N-Terminal [Mass/Vol] 245 pg/mL Normal <450 [facility] Comment on above: Order Comment: [place] bill Type: BLOOD SPECIMENOrdering Facility: [facility] Address: [address] [place] [address] Performed By: #### 3 3762-6, [id number], 39624-3 ####SAGE LABORATORYCLIA [id number] [address] [facility] NURSING PROGon 10-29-2023 NURSING PROG HNO ID: [id number] Author: KATRINA ACEVES, RN Service: Nursing Author Type: Registered Nurse Type: Nursing Progress Note Filed: 10/29/2023 10:41 Note Text: Other: 1030: Pt walked independently around the nursing unit x 2. Pt was slightly short of breath after her walk, recovered quickly with rest. Currently up to chair. Normal [facility] Urinalysis complete panel (U )on 10-29-2023 Bilirubin Ql (U) Negative Normal Negative [facility] Comment on above: Order Comment: [place]rem[place] bill Type: BLOOD SPECIMEN [facility] Address: [address] [place] [address] Performed By: #### L [id number], 58903-9, 98497-6, 31455-5 #### [facility] CLIA [id number] [address] [place] [address] [place] Clarity (Unsp spec) Clear Normal Clear [facility] Comment on above: Order Comment: Speci men Type: BLOOD SPECIMEN [facility] Address: [address] [place] [address] Performed By: #### L [id number], 85850-2, 46705-5, 55484-1 #### [facility] CLIA [id number] [address] [place] [address] [place] Color (U) Light Yellow Normal Yellow [facility] Comment on above: Order Comment: Speci men Type: BLOOD SPECIMEN [facility] Address: [address] [place] [address] Performed By: #### L [id number], 95243-1, 94142-1, 36502-2 #### [facility] CLIA [id number] [address] [place] [address] [place] Glucose Test strip (U) [Mass/Vol] Negative Normal Trace, Negative [facility] Comment on above: Order Comment: Speci men Type: BLOOD SPECIMEN [facility] Address: [address] [place] [address] Performed By: #### L [id number], 17770-9, 52155-6, 77952-3 #### [facility] CLIA [id number] [address] [place] [address] [place] Hemoglobin Ql (U) Negative Normal Negative, Trace [facility] Comment on above: Order Comment: Speci men Type: BLOOD SPECIMEN [facility] Address: [address] [place] [address] Performed By: #### L [id number], 34449-4, 53426-0, 70882-3 #### [facility] CLIA [id number] [address] [place] [address] [place] Hyaline casts (Urine sed) [#/Area] 4-10 /LPF Abnormal 0 /LPF [facility] Comment on above: Order Comment: Speci men Type: BLOOD SPECIMEN [facility] Address: [address] [place] [address] Performed By: #### L [id number], 41452-6, 55402-5, 14953-7 #### [facility] CLIA [id number] [address] [place] [address] [place] Ketones Ql (U) Negative Normal Negative, Trace [facility] Comment on above: Order Comment: Speci men Type: BLOOD SPECIMEN [facility] Address: [address] [place] [address] Performed By: #### L [id number], 33175-5, 20111-5, 28824-9 #### [facility] CLIA [id number] [address] [place] [address] [place] Leukocyte esterase Test strip Ql (U) 25 Jacob/uL Normal Negative, 25 Jacob/uL [facility] Comment on above: Order Comment: Speci men Type: BLOOD SPECIMEN [facility] Address: [address] [place] [address] Performed By: #### L [id number], 63182-5, 25984-9, 10338-1 #### [facility] CLIA [id number] [address] [place] [address] [place] Nitrite Ql (U) Negative Normal Negative [facility] Comment on above: Order Comment: Speci men Type: BLOOD SPECIMEN [facility] Address: [address] [place] [address] Performed By: #### L [id number], 09630-3, 51517-5, 93183-4 #### [facility] CLIA [id number] [address] [place] [address] [place] pH (U) 5.0 [pH] Normal 5.0-8.0 [facility] Comment on above: Order Comment: Speci men Type: BLOOD SPECIMEN [facility] Address: [address] [place] [address] Performed By: #### L [id number], 97476-6, 18901-0, 91680-5 #### [facility] CLIA [id number] [address] [place] [address] [place] Protein (U) [Mass/Vol] Negative Normal Trace , Negative [facility] Comment on above: Order Comment: Speci men Type: BLOOD SPECIMEN [facility] Address: [address] [place] [address] Performed By: #### L [id number], 93259-6, 46319-0, 20248-2 #### [facility] CLIA [id number] [address] [place] [address] [place] RBC LM.HPF (Urine sed) [#/Area] 0-3 /HPF Normal 0-3 /HPF [facility] Comment on above: Order Comment: Speci men Type: BLOOD SPECIMEN [facility] Address: [address] [place] [address] Performed By: #### L [id number], 38837-6, 79256-9, 39092-1 #### [facility] CLIA [id number] [address] [place] [address] Specific gravity (U) [Rel density] 1.012 Normal 1.005-1.03 0 [facility] Comment on above: Order Comment: Speci men Type: BLOOD SPECIMEN [facility] Address: [address] [place] [address] Performed By: #### L [id number], 97358-2, 04916-1, 54482-3 #### [facility] CLIA [id number] [address] [place] [address] [place] Urobilinogen Ql (U) Normal Normal Normal [facility] Comment on above: Order Comment: Speci men Type: BLOOD SPECIMEN [facility] Address: [address] [place] [address] Performed By: #### L [id number], 93998-2, 18843-4, 17303-9 #### [facility] CLIA [id number] [address] [place] [address] [place] WBC LM.HPF (Urine sed) [#/Area] 0-5 /HPF Normal 0-5 /HPF [facility] Comment on above: Order Comment: Speci men Type: BLOOD SPECIMEN [facility] Address: [address] [place] [address] Performed By: #### L [id number], 81884-8, 58266-6, 94888-9 #### [facility] CLIA [id number] [address] [place] [address] [place] CBC W Auto Differential pane l (Bld)on 10-28-2023 Basophils (Bld) [#/Vol] 0.05 10*3/uL Normal <0.11 [facility] Comment on above: Order Comment: Speci men Type: BLOOD SPECIMEN [facility] Address: [address] [place] [address] Performed By: #### L [id number], 27177-4, , 11098-3 #### [facility] CLIA [id number] [address] [place] [address] [place] Basophils/100 WBC (Bld) 0.8 % Normal [facility] Comment on above: Order Comment: Speci men Type: BLOOD SPECIMEN [facility] Address: [address] [place] [address] Performed By: #### L [id number], 46443-7, 61814-5, 83613-7 #### [facility] CLIA [id number] [address] [place] [address] [place] Differential cell count method Nom (Bld) Auto Normal [facility] Comment on above: Order Comment: Speci men Type: BLOOD SPECIMEN [facility] Address: [address] [place] [address] Performed By: #### L [id number], 04649-4, 91471-4, 45664-0 #### [facility] CLIA [id number] [address] [place] [address] [place] Eosinophils (Bld) [#/Vol] 0.21 10*3/uL Normal <0.46 [facility] Comment on above: Order Comment: Speci men Type: BLOOD SPECIMEN [facility] Address: [address] [place] [address] Performed By: #### L [id number], 93042-5, 14045-1, 17998-4 #### [facility] CLIA [id number] [address] [place] [address] [place] Eosinophils/100 WBC (Bld) 3.5 % Normal [facility] Comment on above: Order Comment: Speci men Type: BLOOD SPECIMEN [facility] Address: [address] [place] [address] Performed By: #### L [id number], 77618-2, 50135-1, 16302-1 #### [facility] CLIA [id number] [address] [place] [address] [place] Erythrocyte distribution width (RBC) [Ratio] 13.1 % Normal 11.5-15.0 [facility] Comment on above: Order Comment: Speci men Type: BLOOD SPECIMEN [facility] Address: [address] [place] [address] Performed By: #### L [id number], 12015-7, 17516-5, 67277-8 #### [facility] CLIA [id number] [address] [place] [address] [place] Hematocrit (Bld) [Volume fraction] 36.1 % Normal 36.0-46.0 [facility] Comment on above: Order Comment: Speci men Type: BLOOD SPECIMEN [facility] Address: [address] [place] [address] Performed By: #### L [id number], 90235-6, 61370-2, 42401-2 #### [facility] CLIA [id number] [address] [place], [place] [address] [place] Hemoglobin (Bld) [Mass/Vol] 11.9 g/dL Normal 11.5-15.5 [facility] Comment on above: Order Comment: Speci men Type: BLOOD SPECIMEN [facility] Address: [address] [place] [address] Performed By: #### L [id number], 08873-5, 56070-9, 93120-0 #### [facility] CLIA [id number] [address] [place] [address] [place] Immature granulocytes (Bld) [#/Vol] 10*3/uL Normal <0.10 [facility] Comment on above: Order Comment: Speci men Type: BLOOD SPECIMEN [facility] Address: [address] [place] [address] Performed By: #### L [id number], 90392-1, 25113-7, 43467-5 #### [facility] CLIA [id number] [address] [place] [address] [place] Immature granulocytes/100 WBC (Bld) 0.3 % Normal [facility] Comment on above: Order Comment: Speci men Type: BLOOD SPECIMEN [facility] Address: [address] [place] [address] Performed By: #### L [id number], 24737-1, 54994-5, 33348-8 #### [facility] CLIA [id number] [address] [place] [address] [place] Lymphocytes (Bld) [#/Vol] 1.70 10*3/uL Normal 1.00-4.00 [facility] Comment on above: Order Comment: Speci men Type: BLOOD SPECIMEN [facility] Address: [address] [place] [address] Performed By: #### L [id number], 84963-2, 99589-4, 63313-8 #### [facility] CLIA [id number] [address] [place] [address] [place] Lymphocytes/100 WBC (Bld) 28.1 % Normal [facility] Comment on above: Order Comment: Speci men Type: BLOOD SPECIMEN [facility] Address: [address] [place] [address] Performed By: #### L [id number], 64736-9, 97496-2, 55950-5 #### [facility] CLIA [id number] [address] [place] [address] [place] MCH (RBC) [Entitic mass] 31.4 pg Normal 26.0-34.0 [facility] Comment on above: Order Comment: Speci men Type: BLOOD SPECIMEN [facility] Address: [address] [place] [address] Performed By: #### L [id number], 21326-6, , 30825-6 #### [facility] CLIA [id number] [address] [place] [address] [place] MCHC (RBC) [Mass/Vol] 33.0 g/dL Normal 30.5-36.0 [facility] Comment on above: Order Comment: Speci men Type: BLOOD SPECIMEN [facility] Address: [address] [place] [address] Performed By: #### L [id number], 40415-2, , 13748-9 #### [facility] CLIA [id number] [address] [place] [address] [place] MCV (RBC) [Entitic vol] 95.3 fL Normal 80.0-100.0 [facility] Comment on above: Order Comment: Speci men Type: BLOOD SPECIMEN [facility] Address: [address] [place] [address] Performed By: #### L [id number], 56188-7, , 53496-4 #### [facility] CLIA [id number] [address] [place] [address] [place] Monocytes (Bld) [#/Vol] 0.72 10*3/uL Normal <0.87 [facility] Comment on above: Order Comment: Speci men Type: BLOOD SPECIMEN [facility] Address: [address] [place] [address] Performed By: #### L [id number], 04591-4, , 35779-7 #### [facility] CLIA [id number] [address] [place] [address] [place] Monocytes/100 WBC (Bld) 11.9 % Normal [facility] Comment on above: Order Comment: Speci men Type: BLOOD SPECIMEN [facility] Address: [address] [place] [address] Performed By: #### L [id number], 17840-7, 63045-5, 92579-3 #### [facility] CLIA [id number] [address] [place] [address] [place] Neutrophils (Bld) [#/Vol] 3.36 10*3/uL Normal 1.45-7.50 [facility] Comment on above: Order Comment: Speci men Type: BLOOD SPECIMEN [facility] Address: [address] [place] [address] Performed By: #### L [id number], 07917-2, 65738-3, 47680-8 #### [facility] CLIA [id number] [address] [place] [address] [place] Neutrophils/100 WBC (Bld) 55.4 % Normal [facility] Comment on above: Order Comment: Speci men Type: BLOOD SPECIMEN [facility] Address: [address] [place] [address] Performed By: #### L [id number], 05027-4, 62837-2, 77574-2 #### [facility] CLIA [id number] [address] [place] [address] [place] Nucleated RBC (Bld) [#/Vol] 10*3/uL Normal <0.01 [facility] Comment on above: Order Comment: Speci men Type: BLOOD SPECIMEN [facility] Address: [address] [place] [address] Performed By: #### L [id number], 87189-5, 07570-0, 64526-2 #### [facility] CLIA [id number] [address] [place] [address] [place] Nucleated RBC/100 WBC (Bld) [Ratio] 0.0 /100 WBC Normal [facility] Comment on above: Order Comment: Speci men Type: BLOOD SPECIMEN [facility] Address: [address] [place] [address] Performed By: #### L [id number], 63681-9, 67201-5, 61412-3 #### [facility] CLIA [id number] [address] [place] [address] [place] Platelet mean volume (Bld) [Entitic vol] 11.0 fL Normal 9.0-12.7 [facility] Comment on above: Order Comment: Speci men Type: BLOOD SPECIMEN [facility] Address: [address] [place] [address] Performed By: #### L [id number], 09028-6, 75017-0, 41956-0 #### [facility] CLIA [id number] [address] [place] [address] [place] Platelets (Bld) [#/Vol] 174 10*3/uL Normal 150-400 [facility] Comment on above: Order Comment: Speci men Type: BLOOD SPECIMEN [facility] Address: [address] [place] [address] Performed By: #### L [id number], 05347-3, 61373-4, 30026-2 #### [facility] CLIA [id number] [address] [place] [address] [place] RBC (Bld) [#/Vol] 3.79 10*6/uL Low 3.90-5.20 [facility] Comment on above: Order Comment: Speci men Type: BLOOD SPECIMEN [facility] Address: [address] [place] [address] Performed By: #### L [id number], 48471-4, 29781-2, 72721-3 #### [facility] CLIA [id number] [address] [place], [place] [address] [place] WBC (Bld) [#/Vol] 6.06 10*3/uL Normal 3.70-11.00 [facility] Comment on above: Order Comment: Speci men Type: BLOOD SPECIMEN [facility] Address: [address] [place] [address] Performed By: #### L [id number], 16038-4, 31806-7, 70375-7 #### [facility] CLIA [id number] [address] [place] [address] [place] CONSULT PROGon 10-28-2023 CONSULT PROG HNO ID: [id number] Author: VASYL COVARRUBIAS MD Service: Cardiovascular Medicine Author Type: Physician Type: Consult Progress Note Filed: 10/29/2023 04:22 Note Text: CARDIOLOGY CONSULT PROGRESS NOTE SERVICE DATE: 10/28/2023 Time: 6:05 PM ATTENDING: Ata Toscano MD 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 Helper: Vasyl Covarrubias MD ASSESSMENT: Admitted with worsening dyspnea HFpEF, moderately severe MR (VIOLA [place] 07/2023: MR ERO 0.33 cm2, MR volume 67cm.)and mild to moderate AI at [facility], says was being considered for MVR LAY on CKD Paroxysmal A-fib diagnosed 1 month ago started amiodarone AC Eliquis CAD PCI LAD Synergy 03/2022 ; PCI RCA Synergy 3.0 x 20 in 05/2020, [place] stress test reported normal 07/2023 Hypertension Hyperlipidemia, at home on statin Thyroid disease, BMI 32, GERD, depression anxiety, back and knee surgeries Card meds [employer]: Eliquis 5 twice daily, losartan 100 daily, Imdur 30 daily, hydralazine 25 twice daily, Lasix 20 daily, K-Dur 10 daily, Lipitor 40 daily RECOMMENDATIONS: Awaiting images of VIOLA from [place]. DC amiodarone Consider low-dose BB [aware of history of fatigue] Received Lasix today, monitoring renal function Echocardiogram today: Based on the results of the echo we will consider repeat VIOLA and if this shows severe MR she will be considered for right and left heart catheterization Discussed with pt VITAL SIGNS (last recorded): 10/28/23 1928 10/28/23 2259 10/29/23 0037 10/29/23 0312 BP: 137/68 133/57 126/62 Pulse: (!) 59 60 (!) 56 Resp: 17 18 18 Temp: 36.6 ?C (97.9 ?F) 36.5 ?C (97.7 ?F) 36.4 ?C (97.5 ?F) TempSrc: Oral Oral Oral SpO2: 95% 96% 95% Weight: 84.5 kg (186 lb 4.6 oz) Height: Comfortable, not in acute distress. INTERIM HISTORY: Says overall feeling better but she attributes that to wearing oxygen. I encouraged her to try to walk around without oxygen and see how her shortness of breath is. We also discussed renal function. We will be considering repeat VIOLA and if this shows severe MR she will be considered for right and left heart catheterization MEDICATIONS: Current Facility-Administered Medications: NaCl 0.9% iv flush bag melatonin 6 mg tab(s) acetaminophen 500-1,000 mg tab(s) (TYLENOL) ondansetron (PF) 4 mg injection (ZOFRAN) senna-docusate 8.6-50 mg 1-2 tablet (SENNA-S) atorvastatin 40 mg tab(s) (LIPITOR) hydrALAZINE 25 mg tab(s) (APRESOLINE) furosemide 20 mg tab(s) (LASIX) pantoprazole DR 40 mg tab(s) (PROTONIX) amiodarone 200 mg tab(s) (PACERONE) apixaban 5 mg tab(s) (ELIQUIS) liothyronine 5 mcg tab(s) (CYTOMEL) isosorbide mononitrate ER 30 mg tab(s) (IMDUR) escitalopram oxalate 10 mg tab(s) (LEXAPRO) aspirin, enteric coated 81 mg tab(s) [COMPLETED] ECHO AND sodium chloride 0.9 % (flush) 2-10 mL (BD POSIFLUSH) AND perflutren lipid microspheres 1.1 mg/mL 1.3 mL injection (DEFINITY) PHYSICAL EXAM: Body mass index is 33 kg/m?. Awake, alert LUNGS: Decreased BSs bilaterally. CARDIAC: S1 and S2 systolic murmur EXTREMITIES: No edema. DATA: Diagnostic tests reviewed for today's visit: Reviewed recent relevant labs, EKG and imaging results. CBC, Coags, BMP, Mg, Phos Recent Labs 10/28/23 0549 10/26/23 2145 WBC 6.06 7.07 HB 11.9 12.3 HCT 36.1 37.0 PLT 174 205 NA 139 142 K 4.3 4.2 CHLOR 103 106* CO2 27 25 BUN 29* 30* CREAT 1.54* 1.60* GLUC 97 89 CA 9.3 9.6 MG 2.0 2.0 Liver Function, Amylase, AND Lipase Recent Labs 10/28/23 0549 10/26/23 2145 TPROT 6.1* 6.5 ALB 4.1 4.1 ALT 11 12 AST 11* 15 ALKPHOS 86 102 TBILI 0.6 0.4 Cardiac Enzymes ABGs Last Lab Drawn: Recent Labs 10/26/23 2309 10/26/23 2145 TSH 4.790* -- PBNP -- 456* Recent Labs 10/26/23 2309 10/26/23 2145 HSTNT 19* 18* Thank you, Recommendations are communicated via shared electronic medical records. This note was partially generated using voice recognition system, there may be some incorrect words, spellings, and punctuation that were not noted in checking the note before saving. SIGNATURE: Vasyl Covarrubias MD PATIENT NAME: Cece Hubbard DATE: 10/29/2023 TIME: 4:06 AM call 24 hour service line Normal [facility] Comprehensive metabolic 2000 panelon 10-28-2023 Albumin [Mass/Vol] 4.1 g/dL Normal 3.9-4.9 [facility] Comment on above: Order Comment: Speci men Type: BLOOD SPECIMEN Ordering Facility: [facility] Address: [address] [place] [address] Performed By: #### 5 7021-8 #### [facility] CLIA [id number] [address] [place] [address] [place] ALP [Catalytic activity/Vol] 86 U/L Normal 34-123 [facility] Comment on above: Order Comment: Speci men Type: BLOOD SPECIMEN Ordering Facility: [facility] Address: [address] [place] [address] Performed By: #### 5 7021-8 #### [facility] CLIA [id number] [address] [place] [address] [place] ALT [Catalytic activity/Vol] 11 U/L Normal 7-38 [facility] Comment on above: Order Comment: Speci men Type: BLOOD SPECIMEN Ordering Facility: [facility] Address: [address] [place] [address] Performed By: #### 5 7021-8 #### [facility] CLIA [id number] [address] [place] [address] [place] Anion gap [Moles/Vol] 9 mmol/L Normal 9-18 [facility] Comment on above: Order Comment: Speci men Type: BLOOD SPECIMEN Ordering Facility: [facility] Address: [address] [place] [address] Performed By: #### 5 7021-8 #### [facility] CLIA [id number] [address] [place] [address] [place] AST [Catalytic activity/Vol] 11 U/L Low 13-35 [facility] Comment on above: Order Comment: Speci men Type: BLOOD SPECIMEN Ordering Facility: [facility] Address: [address] [place] [address] Performed By: #### 5 7021-8 #### [facility] CLIA [id number] [address] [place] [address] [place] Bilirubin [Mass/Vol] 0.6 mg/dL Normal 0.2-1.3 [facility] Comment on above: Order Comment: Speci men Type: BLOOD SPECIMEN Ordering Facility: [facility] Address: [address] [place] [address] Performed By: #### 5 7021-8 #### [facility] CLIA [id number] [address] [place] [address] [place] Calcium [Mass/Vol] 9.3 mg/dL Normal 8.5-10.2 [facility] Comment on above: Order Comment: Speci men Type: BLOOD SPECIMEN Ordering Facility: [facility] Address: [address] [place] [address] Performed By: #### 5 7021-8 #### [facility] CLIA [id number] [address] [place] [address] [place] Chloride [Moles/Vol] 103 mmol/L Normal 97-105 [facility] Comment on above: Order Comment: Speci men Type: BLOOD SPECIMEN Ordering Facility: [facility] Address: [address] [place] [address] Performed By: #### 5 7021-8 #### [facility] CLIA [id number] [address] [place] [address] [place] CO2 [Moles/Vol] 27 mmol/L Normal 22-30 [facility] Comment on above: Order Comment: Speci men Type: BLOOD SPECIMEN Ordering Facility: [facility] Address: [address] [place] [address] Performed By: #### 5 7021-8 #### [facility] CLIA [id number] [address] [place] [address] [place] Creatinine [Mass/Vol] 1.54 mg/dL High 0.58-0.96 [facility] Comment on above: Order Comment: Speci men Type: BLOOD SPECIMEN Ordering Facility: [facility] Address: [address] [place] [address] Performed By: #### 5 7021-8 #### [facility] CLIA [id number] [address] [place] [address] [place] Creatinine and Glomerular filtration rate.predicted panel (S/P/Bld) 35 mL/min/1.73m??? Low >=60 [facility] Comment on above: Order Comment: Speci men Type: BLOOD SPECIMEN Ordering Facility: [facility] Address: [address] [place] [address] Result Comment: Amy mated Glomerular Filtration Rate [...] accurately reflect actual GFR. Performed By: #### 5 7021-8 #### [facility] CLIA [id number] [address] [place] [address] [place] Glucose [Mass/Vol] 97 mg/dL Normal 74-99 [facility] Comment on above: Order Comment: Zaki fly Type: BLOOD SPECIMEN Ordering Facility: [facility] Address: [address] [place] [address] Result Comment: The [place] [employer] Association (ADA) provides guidance for cutoff [...] Standards of Medical Care in Diabetes 2016, [place] [employer]. Diabetes Care. 2016.39(Suppl 1). Performed By: #### 5 7021-8 #### [facility] CLIA [id number] [address] [place] [address] [place] Potassium [Moles/Vol] 4.3 mmol/L Normal 3.7-5.1 [facility] Comment on above: Order Comment: Speci men Type: BLOOD SPECIMEN Ordering Facility: [facility] Address: [address] [place] [address] Performed By: #### 5 7021-8 #### [facility] CLIA [id number] [address] [place] [address] [place] Protein [Mass/Vol] 6.1 g/dL Low 6.3-8.0 [facility] Comment on above: Order Comment: Speci men Type: BLOOD SPECIMEN Ordering Facility: [facility] Address: [address] [place] [address] Performed By: #### 5 7021-8 #### [facility] CLIA [id number] [address] [place] [address] [place] Sodium [Moles/Vol] 139 mmol/L Normal 136-144 [facility] Comment on above: Order Comment: Speci men Type: BLOOD SPECIMEN Ordering Facility: [facility] Address: [address] [place] [address] Performed By: #### 5 7021-8 #### [facility] CLIA [id number] [address] [place] [address] [place] Urea nitrogen [Mass/Vol] 29 mg/dL High 7-21 [facility] Comment on above: Order Comment: Speci men Type: BLOOD SPECIMEN Ordering Facility: [facility] Address: [address] [place] [address] Performed By: #### 5 7021-8 #### [facility] IA [id number] [address] [place] [address] [place] ECHOon 10-28-2023 Echocardiography Echocardiography Rep ort: Transthoracic Echo [facility] Date of service: 10/28/2023 3:41:25 PM Ordering physician: MAURI KHAN Indication: Initial evaluation valvular heart disease Technologist: Jessica Mane Interpreting physician: Vasyl Covarrubias MD PATIENT: Name: CECE HUBBARD : 1945 Age: 78 years Gender: F History of hypertension, dyslipidemia, coronary artery disease and arrhythmia. Primary rhythm: sinus. Height: 160.00 cm BSA: 1.93 m Weight: 83.92 kg BMI: 32.8 kg/m Heart rate 67 bpm Blood pressure 124/63 mmHg Technically difficult exam due to body habitus. Color Doppler was utilized to interrogate the cardiac valves assessed and spectral Doppler was utilized to determine the flow velocities and pressure gradients reported in this exam. MEASUREMENTS: Value Indexed Normal Max aortic dimension 3.6 cm Ao < 3.8 Left atrial volume 94 ml (biplane A-L) 49 ml/m Sanjiv <= 34 LV stroke volume 47 ml (2D biplane) LV end diastolic volume 69 ml (2D biplane) 35.9 ml/m 29<=EDVi<62 LV end systolic volume 23 ml (2D biplane) 11.7 ml/m Ejection Fraction 67 % (2D biplane) EF > 54 FINDINGS: LEFT VENTRICLE The left ventricle is normal in size. There is left ventricular hypertrophy. Left ventricular systolic function is normal. Left ventricular diastolic function was not evaluated due to >2+ MR and >2+ AI. Mitral annular lateral E/e': 13.6. Mitral annular septal E/e': 12.1. Wall Motion: All scored segments are normal. RIGHT VENTRICLE The right ventricle is normal in size. Right ventricular systolic function is normal. RV systolic tissue Doppler velocity is 16.2 cm/s. Tricuspid annular displacement is 3.1 cm. Estimated right ventricular systolic pressure is 46 mmHg consistent with mild pulmonary hypertension. Estimated right atrial pressure is 3 mmHg based on IVC assessment. LEFT ATRIUM The left atrial cavity is severely dilated. RIGHT ATRIUM The right atrial cavity is normal in size. Inferior Vena Cava: The inferior vena cava appears normal measuring 1.8 cm. The vessel decreases greater than 50 percent with inspiration. MITRAL VALVE There is mild mitral annular calcification observed posterior. There is moderately severe (3+) mitral valve regurgitation. There is mild thickening. The pressure half time is 68 msec. The peak mitral E/A ratio is 1.11. The average mitral E/e' ratio is 12.9. The mitral flow deceleration time is 234 msec. TRICUSPID VALVE There is mild (1+) tricuspid valve regurgitation. There is no thickening. AORTIC VALVE There is moderate (2+) aortic valve regurgitation. Tricuspid aortic valve. There is mild thickening. There is mild calcification. PULMONIC VALVE The pulmonic valve was not seen or not interrogated. There is trace pulmonic valve regurgitation. AORTA The visualized aorta is normal in size. Measurements - Mid ascending aorta 3.6 cm. PULMONARY ARTERIES The pulmonary arteries are unseen or not interrogated. PERICARDIUM There is no pericardial effusion. CONCLUSIONS: - Technically difficult exam due to body habitus. - Exam indication: Initial evaluation valvular heart disease - The left ventricle is normal in size. There is left ventricular hypertrophy. Left ventricular systolic function is normal. EF = 67 5% (2D biplane) Left ventricular diastolic function was not evaluated due to >2+ MR and >2+ AI. - The right ventricle is normal in size. Right ventricular systolic function is normal. - The left atrial cavity is severely dilated. - There is moderately severe (3+) mitral valve regurgitation. - There is moderate (2+) aortic valve regurgitation. - Exam was compared with the prior OUTSIDE echocardiographic exam performed on 08/06/2023. ([place]) * * * Final * * * CC [employer] : [id number] Normal [facility] Magnesium SerPl-mCncon 10-27 Magnesium [Mass/Vol] 2.0 mg/dL Normal 1.7-2.3 [facility] Comment on above: Order Comment: Speci men Type: BLOOD SPECIMEN Ordering Facility: [facility] Address: [place] [address] Performed By: #### 5 7021-8 #### [facility] CLIA [id number] [address] [place] [id number] [place] US KIDNEY/BLADDERon 10-28-19 US KIDNEY/BLADDER * * *Final Report* * * DATE OF EXAM: Oct 28 2023 6:08AM FVU 1055 - US KIDNEY/BLADDER / PROCEDURE REASON: Kidney failure, acute * * * * Physician Interpretation * * * * EXAMINATION: RENAL ULTRASOUND CLINICAL HISTORY: Kidney failure, acute TECHNIQUE: Sonography of the kidneys and urinary bladder was performed. Images were obtained and stored in a permanent archive. MQ: UR_1 COMPARISON: None RESULT: Right Kidney: -Renal length: 8.3 cm -Parenchyma: Normal parenchymal echogenicity. Normal parenchymal thickness. -Collecting system: No hydronephrosis. -Calculus: No echogenic, shadowing calculus. -Lesion: None. Left Kidney: -Renal length: 9.2 cm -Parenchyma: Normal parenchymal echogenicity. Normal parenchymal thickness. -Collecting system: No hydronephrosis. -Calculus: No echogenic, shadowing calculus. -Lesion: None. Bladder: Normal sonographic appearance. IMPRESSION: No hydronephrosis or renal stones Housing Management Representative: SCOTT Transcribe Date/Time: Oct 28 2023 7:49A Dictated by : DANYEL CELAYA MD This examination was interpreted and the report reviewed and electronically signed by: DANYEL CELAYA MD on Oct 28 2023 7:51AM EST [id number] Normal [facility] CASE MGT INIT ASSESon 2023 CASE MGT INIT ALBA HNO ID: [id number] Author: SNEHA LIMON LISW Service: Social Work Author Type: Credit Correspondence Clerk Type: Care Mgt Initial Assessment Filed: 10/27/2023 15:40 Note Text: CARE MANAGEMENT: ASSESSMENT AND DISCHARGE PLAN SERVICE DATE: October 27, 2023 SERVICE TIME: 3:36 PM PCP: Demarco Newell MD Primary Contact: Extended Emergency Contact Information Primary Emergency Contact: Elio Hubbard Address: [address] [place] [address] [place] [address] Relation: Spouse Secondary Emergency Contact: BARRY CHURCH Mobile Relation: Daughter Admission Status: Inpatient Insurance Provider: MEDICARE A AND B Discharge Planning requested by: Per Department Practice Potential Transition Plans Home Advance Directives Current Advance Directive: None Counter Stitcher Attempted to Assist with AD Completion: Yes Action: Patient Completed Advance Directive Current Living Arrangements and Support Lives with: Spouse/significant other Type of Residence: Private Residence (House) Does the patient have to climb stairs at home?: stairs outside the home Support: Children, Friends/neighbors, Spouse/significant other How do you manage to accomplish the following: Independent: Ambulation;Bathe/Shower;Dr ess;Meals/Meal Prep;Going to the bathroom;Medication Management;Transportation to appointments/community Current Services/Equipment Current Post-Acute Service(s): DME Current DME Type: Shower seat Discharge Planning Patient Goal(s): Be able to go home, General wellness [place] Explained: [place] Given: No Reason Not Given: Unable to complete with this assessment - revisit Are you interested in bedside delivery of your medications? Yes Discharge Planning Participant(s): Spouse/significant other;Patient Caregiver Assessment: Caregiver is ready, willing and able to meet the patient's needs as recommended by the inter-professional team: No Caregiver needed Transport at Discharge: Transportation Arrangements: Car Needs Prior to Discharge: Needs Prior to Discharge: To Be Determined;Desat Study Post-Acute Discharge Plan: To Be Determined Pt is a 78 yo female admitted for SOB. Pt has a hx of CHF, Afib. Pt lives with spouse in [employer] home, 2 steps to enter. Pt is independent with ADLS, meds, spouse assists with iADLS as needed, transportation Pt has a shower seat, NO Home O2 No home care Pt denies any safety, financial or social concerns. Spouse to transport at d/c Anticipate d/c home w/ no skilled needs; desat study SIGNATURE: LINDA Drummond PATIENT NAME: Cece Hubbard DATE: October 27, 2023 TIME: 3:36 PM CONTACT #: [phone] [facility] CONSULTon 10-27-2023 CONSULT HNO ID: [id number] Author: VASYL COVARRUBIAS MD Service: Cardiovascular Disease Author Type: Nurse Practitioner Type: Consults Filed: 10/29/2023 06:00 Note Text: -- Attestation signed by Vasyl Covarrubias MD at 10/29/2023 6:00 AM Patient seen and examined Please refer to my consult note under separate entry Thank you Vasyl Covarrubias MD -- CONSULT: CARDIOLOGY SERVICE SERVICE DATE: 10/27/2023 SERVICE TIME: 8:41 AM CONSULTING PHYSICIAN: Vasyl Covarrubias MD PCP: Demarco Newell MD ATTENDING: Ata Toscano MD REASON FOR CONSULT: Mitral regurgitation Subjective CHIEF COMPLAINT: SOB (shortness of breath) [R06.02] HISTORY OF PRESENT ILLNESS: Ms. Hubbard is a 78 year old female who presented 10/25 w/ c/o worsening SOB and reduced ability to perform ADLs. Pt has a pmh of mod-severe MR, mild-mod AR/TR, CAD w/ BRITTNEY to LAD and RCA in 2019, HTN, hypothyroidism, HFpEF, HLD, GERD, depression, anxiety, and recent AF diagnosis about 1 month ago at [place] and started on amiodarone and Eliquis. Since AF diagnosis, pt has had multiple ER visits for SOB w/ most recent on 10/12 at [facility]. Limited Echo completed showing severe MR w/ preserved EF. Additional findings at that time were LAY (cre 1.36/ BUN 21/ GFR 40) and BNP of 719. Pt started on lasix 20 daily and sent home w/ plan for continued CTS f/u for MR at [facility]. Pt presents this admission on 10/25 w/ c/o worsening SOB since d/c and reduced ability to perform ADLs. In ER EKG SR w/ MAGDALENO/inferior STD. HSTnT flat at 18-18-19. BUN 456. LAY worsening from prior visit ( Cre 1.6/ BUN 30/ GFR 33). TSH also checked and high at 4.790- pt on liothyronine 5mcg daily. Pt admitted to [facility] for evaluation of valvular disease and HF exacerbation in setting of recent AF diagnosis. PAST MEDICAL HISTORY Diagnosis Date CAD (coronary [...] Types: Cigarettes Quit date: 04/28/1990 Years since quittin.5 Smokeless tobacco: Former Substance Use Topics Alcohol use: No Drug use: No Prior to Admission Medications Prescriptions Last Dose Informant Patient Reported? Taking? BIOTIN ORAL Yes No ELIQUIS 5 mg tab(s) Yes No Sig: Take 1 tablet by mouth every 12 hours. Multivitamin capsule Yes No Sig: Take 1 capsule by mouth once daily. TYRVAYA 0.03 mg/spray nasal spray Yes No Sig: Instill 1 spray into both nostrils twice a day VIT C/VIT E/LUTEIN/MIN/OMEGA-3 (OCUVITE ORAL) Yes No Sig: Take by mouth. amiodarone (PACERONE) 200 mg tablet Yes No Sig: Take 1 tablet by mouth every 12 hours. aspirin 81 mg cap Yes No Sig: Take by mouth. atorvastatin (LIPITOR) 40 mg tablet Yes No Sig: Take 40 mg by mouth once daily. escitalopram oxalate (LEXAPRO) 10 mg tablet Yes No Sig: Take 1 tablet by mouth every afternoon. furosemide (LASIX) 20 mg tablet No No Sig: Take 1 tablet by mouth once daily. hydrALAZINE (APRESOLINE) 25 mg tablet Yes No Sig: Take 25 mg by mouth. isosorbide mononitrate ER (IMDUR) 30 mg 24 hr tablet Yes Yes Sig: Take 30 mg by mouth. krill oil 500 mg cap Yes No liothyronine (CYTOMEL) 5 mcg tablet Yes No Sig: Take 1 tablet by mouth every afternoon. losartan (COZAAR) 100 mg tablet Yes No pantoprazole DR (PROTONIX) 40 mg tablet Yes No Sig: Take 40 mg by mouth once daily. potassium chloride ER (K-DUR, KLOR-CON) 10 mEq tablet Yes No Sig: Take 10 mEq by mouth twice daily. traMADol (ULTRAM) 50 mg tablet Yes No Sig: Take 50 mg by mouth three times daily as needed. ubidecarenone Q-10 (COENZYME Q-10) 10 mg cap Yes No venlafaxine ER (EFFEXOR XR) 75 mg 24 hr capsule Yes No Sig: Take 75 mg by mouth once daily. vit A/vit C/vit E/zinc/copper (PRESERVISION AREDS ORAL) Yes No Facility-Administered Medications: None Current Facility-Administered Medications Medication Dose Route Frequency NaCl 0.9% iv flush bag 20 mL INTRAVENOUS PRN melatonin 6 mg tab(s) 6 mg ORAL AT BEDTIME PRN acetaminophen 500-1,00 (more content not included)... [facility] CONSULT HNO ID: [id number] Author: VASYL COVARRUBIAS MD Service: Cardiovascular Medicine Author Type: Physician Type: Consults Filed: 10/29/2023 04:05 Note Text: CARDIOLOGY SERVICE: CONSULT SERVICE DATE: 10/27/2023 Time: 7:40 AM CONSULTING PHYSICIAN: Vasyl Covarrubias FACC PCP: Demarco Newell MD ATTENDING: Ata Toscano MD REASON FOR CONSULT: Cardiology Evaluation ASSESSMENT: Admitted with worsening dyspnea HFpEF, moderately severe MR and mild to moderate AI at [facility], says was being considered for MVR Paroxysmal A-fib diagnosed 1 month ago started amiodarone AC Eliquis CAD PCI LAD Synergy 03/2022 ; PCI RCA Synergy 3.0 x 20 in 05/2020 Hypertension Hyperlipidemia, at home on statin Thyroid disease, BMI 32, GERD, depression anxiety Card meds [employer]: Eliquis 5 twice daily, losartan 100 daily, Imdur 30 daily, hydralazine 25 twice daily, Lasix 20 daily, K-Dur 10 daily, Lipitor 40 daily PLAN: IV Lasix Monitor renal function Obtain records and imaging from [facility] Above was discussed with pt Thank you Ata Evans MD for the privilege in participating in Ms. Hubbard's care. Please do not hesitate to call me with any questions. CHIEF COMPLAINT: SOB (shortness of breath) [R06.02] HISTORY OF PRESENT ILLNESS: Ms. Hubbard is a 78 year old female is referred to cardiology consult. Patient was admitted with increasing difficulty breathing. This has been going on for more than a month. Particularly since she went into paroxysmal A-fib and started amiodarone. She carries a diagnosis of progressing the worsening mitral valve infection was referred for surgery. Echo reported normal EF. No distinct chest pain and negative cardiac markers has been in normal sinus rhythm taking Eliquis. MEDICATIONS: Prior to Admission Medications Prescriptions Last Dose Informant Patient Reported? Taking? BIOTIN ORAL Yes No ELIQUIS 5 mg tab(s) Yes No Sig: Take 1 tablet by mouth every 12 hours. Multivitamin capsule Yes No Sig: Take 1 capsule by mouth once daily. TYRVAYA 0.03 mg/spray nasal spray Yes No Sig: Instill 1 spray into both nostrils twice a day VIT C/VIT E/LUTEIN/MIN/OMEGA-3 (OCUVITE ORAL) Yes No Sig: Take by mouth. amiodarone (PACERONE) 200 mg tablet Yes No Sig: Take 1 tablet by mouth every 12 hours. aspirin 81 mg cap Yes No Sig: Take by mouth. atorvastatin (LIPITOR) 40 mg tablet Yes No Sig: Take 40 mg by mouth once daily. escitalopram oxalate (LEXAPRO) 10 mg tablet Yes No Sig: Take 1 tablet by mouth every afternoon. furosemide (LASIX) 20 mg tablet No No Sig: Take 1 tablet by mouth once daily. hydrALAZINE (APRESOLINE) 25 mg tablet Yes No Sig: Take 25 mg by mouth. isosorbide mononitrate ER (IMDUR) 30 mg 24 hr tablet Yes Yes Sig: Take 30 mg by mouth. krill oil 500 mg cap Yes No liothyronine (CYTOMEL) 5 mcg tablet Yes No Sig: Take 1 tablet by mouth every afternoon. losartan (COZAAR) 100 mg tablet Yes No pantoprazole DR (PROTONIX) 40 mg tablet Yes No Sig: Take 40 mg by mouth once daily. potassium chloride ER (K-DUR, KLOR-CON) 10 mEq tablet Yes No Sig: Take 10 mEq by mouth twice daily. traMADol (ULTRAM) 50 mg tablet Yes No Sig: Take 50 mg by mouth three times daily as needed. ubidecarenone Q-10 (COENZYME Q-10) 10 mg cap Yes No venlafaxine ER (EFFEXOR XR) 75 mg 24 hr capsule Yes No Sig: Take 75 mg by mouth once daily. vit A/vit C/vit E/zinc/copper (PRESERVISION AREDS ORAL) Yes No Facility-Administered Medications: None Current Facility-Administered Medications Medication Dose Route Frequency NaCl 0.9% iv flush bag 20 mL INTRAVENOUS PRN melatonin 6 mg tab(s) 6 mg ORAL AT BEDTIME PRN acetaminophen 500-1,000 mg tab(s) (TYLENOL) 500-1,000 mg ORAL q 6 H PRN ondansetron (PF) 4 mg injection (ZOFRAN) 4 mg INTRAVENOUS q 6 H PRN senna-docusate 8.6-50 mg 1-2 tablet (SENNA-S) 1-2 tablet ORAL BID PRN atorvastatin 40 mg tab(s) (LIPITOR) 40 mg ORAL DAILY hydrALAZINE 25 mg tab(s) (APRESOLINE) 25 mg ORAL q 12 H furosemide 20 mg tab(s) (LASIX) 20 mg ORAL DAILY pantoprazole DR 40 mg tab(s) (PROTONIX) 40 mg ORAL DAILY (6 AM) amiodarone 200 mg tab(s) (PACERONE) 200 mg ORAL q 12 H apixaban 5 mg tab(s) (ELIQUIS) 5 mg ORAL q 12 H liothyronine 5 mcg tab(s) (CYTOMEL) 5 mcg ORAL BEFORE BREAKFAST DAILY isosorbide mononitrate ER 30 mg tab(s) (IMDUR) 30 mg ORAL DAILY escitalopram oxalate 10 mg tab(s) (LEXAPRO) 10 mg ORAL DAILY aspirin, enteric coated 81 mg tab(s) 81 mg ORAL DAILY sodium chloride 0.9 % (flush) 2-10 mL (BD POSIFLUSH) 2-10 mL INTRAVENOUS DIRECTED PRN And perflutren lipid microspheres 1.1 mg/mL 1.3 mL injection (DEFINITY) 1.3 mL INTRAVENOUS DIRECTED PRN ALLERGIES: ALLERGIES Allergen Reactions Serina Inhibitors Rash, Hives Amlodipine Swelling Codeine Vomiting Dilaudid [Hydromorp* Vomiting Meperidine Vomiting Morphine Vomiting Neurontin [Gabapent* Mental Status Change HISTORY: PAST MEDICAL HISTORY Diagnosis Date CAD (coronary artery (more content not included)... Normal [facility] ED NOTEon 10-27-2023 ED NOTE HNO ID: [id number] Author: GRICELDA DAS RN Service: ? Author Type: Registered Nurse Type: ED Notes Filed: 10/26/2023 23:35 Note Text: Report to Mounika HOANG Normal [facility] ED PROV NOTEon 10-27-2023 ED PROV NOTE HNO ID: [id number] Author: MARION BURNETT DO Service: Emergency Medicine Author Type: Physician Type: ED Provider Notes Filed: 10/27/2023 00:48 Note Text: ED Provider Note Patient Name: Cece Hubbard : 1945 SERVICE DATE: 10/26/23 History Patient presents with: Shortness of Breath: Hx of mitral valve regurgitation, had an appointment in November. States that she is constantly SOB even when just sitting. States that she has a hard time doing daily tasks. Denies any syncopal episodes 78-year-old female presenting with concern for shortness of breath. Patient is here with her daughter and they live south of [facility]. Patient reports that she was recently diagnosed with atrial fibrillation about a month ago in [place] and was started on amiodarone and Eliquis. She also has a history of mitral valve regurg and is waiting for follow-up to see if she would be a candidate for surgery. She had been compliant with all of her meds. She was seen in the ED at [facility] on 10/12 and was seen by cardiology. It shows that they did a bedside echo which showed preserved EF but moderate to severe mitral regurg. She was started on Lasix which she has been compliant with as well without any significant improvement in her symptoms. Reports that she was having intermittent shortness of breath at that time but it has gotten significantly worse since then and has been very severe over the course of the past 3 days. She gets so short of breath with exertion that she feels like she is going to pass out at times. Denies any syncope. Denies chest pain, nausea, vomiting, or diaphoresis. PAST MEDICAL HISTORY Diagnosis Date CAD (coronary [...] Types: Cigarettes Quit date: 04/28/1990 Years since quittin.5 Smokeless tobacco: Former Substance and Sexual Activity Alcohol use: No Drug use: No Sexual activity: Not on file Comment: not asked ALLERGIES Allergen Reactions Serina Inhibitors Rash, Hives Amlodipine Swelling Codeine Vomiting Dilaudid [Hydromorp* Vomiting Meperidine Vomiting Morphine Vomiting Neurontin [Gabapent* Mental Status Change Review of Systems Reason unable to perform ROS: As documented in HPI. Physical Exam Vitals BP Pulse Temp Temp src Resp SpO2 Weight Height 10/26/23211010/26/23211010/26/23211110/26/23211010/26/23211010/26/23211010/26/23211010/26/232110 164/64 61 36.7 ?C (98.1 ?F) Oral 18 99 % 83.9 kg (185 lb) 1.6 m (5' 3 ) Physical Exam Vitals and nursing note reviewed. Constitutional: General: She is not in acute distress. Appearance: She is well-developed. HENT: Head: Normocephalic. Eyes: General: No scleral icterus. Cardiovascular: Rate and Rhythm: Normal rate and regular rhythm. Pulses: Normal pulses. Pulmonary: Effort: Pulmonary effort is normal. Breath sounds: Normal breath sounds. No wheezing or rhonchi. Comments: Patient wearing 2 L nasal cannula and reports improvement in her shortness of breath -has no baseline oxygen requirement Abdominal: General: There is no distension. Palpations: Abdomen is soft. Tenderness: There is no abdominal tenderness. There is no guarding or rebound. Musculoskeletal: General: No tenderness. Cervical back: Normal range of motion. Right lower leg: No edema. Left lower leg: No edema. Skin: General: Skin is warm and dry. Neurological: General: No focal deficit present. Mental Status: She is alert. Psychiatric: Mood and Affect: Mood normal. Diagnostic Testing ED Labs Ordered and Reviewed COMP METABOLIC PANEL - Abnormal; Notable for the following components: Result Value Ref Range BUN 30 (*) 7 - 21 mg/dL Creatinine 1.60 (*) 0.58 - 0.96 mg/dL Chloride 106 (*) 97 - 105 mmol/L Estimated Glomerular Filtration Rate 33 (*) >=60 mL/min/1.73m? All other components within normal limits NT PRO BNP - Abnormal; Notable for the following components: NT Pro BNP 456 (*) <450 pg/mL All other components within normal limits CBC + DIFF - Abnormal; Notab (more content not included)... Normal [facility] FLUABV+SARS-CoV-2+RSV Pnl Re sp ERICK+probeon 10-27-2023 FLUABV+SARS-CoV-2+RSV Pnl Resp ERICK+probe COVID 19 RESULT: Not detected The method used is RT-PCR or an equivalent NAAT method. Reference Range(the expected result in uninfected individuals): Not detected INFLUENZA A PCR: Not detected INFLUENZA B PCR: Not detected RSV PCR: Not detected Normal [facility] Comment on above: Performed By: #### 9 5941-1 ####[facility] [id number] [address] [place] HIGH SENSITIVITY TROPONIN T (SECOND)on 10-27-2023 Troponin T.cardiac High sensitivity method [Mass/Vol] 19 ng/L High <12 [facility] Comment on above: Order Comment: Speci men Type: BLOOD SPECIMEN Ordering Facility: [facility] Address: [address] [place] [address] Result Comment: When assessing risk for acute [...] 30 day MACE. Performed By: #### L [id number], 65110-0, 82796-0, 63787-3 #### [facility] CLIA [id number] [place] HISTORY PHYSICALon HISTORY PHYSICAL HNO ID: [id number] Author: ATA TOSCANO MD Service: General Internal Medicine Author Type: Physician Type: H&P Filed: 10/27/2023 22:07 Note Text: INTERNAL MEDICINE HANDP EXAMINATION SERVICE DATE: 10/27/2023 SERVICE TIME: 9:23 PM PRIMARY CARE PHYSICIAN: Demarco Newell MD CHIEF COMPLAINT Worsening SOB HISTORY OF PRESENT ILLNESS HPI: Ms. Hubbard is a 78 year old female who presents with worsening SOB. Patient has PMHx of HTN, HLD, hypothyroidism, HFpEF, CAD (PCI to LAD and RCA), moderate-severe MR, and recent atrial fibrillation (on Eliquis). Patient reports lately, she has been very SOB even with light chores at home since the diagnosis of her atrial fibrillation. She also has been having significant palpitations. In ED temp 36.7, HR 61, BP 164/64, SPO2 99% on 2 L of oxygen. EKG NSR no ischemic changes. Lab results Cr 1.6, GFR 33, HST 18-19, BNP 456, TSH 4.790, WBC 7.0, Hgb 12.3. CXR: No acute findings MEDICAL/SURGICAL HISTORY PAST MEDICAL HISTORY Diagnosis Date CAD [...] Types: Cigarettes Quit date: 04/28/1990 Years since quittin.5 Smokeless tobacco: Former Substance Use Topics Alcohol use: No Drug use: No MEDICATIONS isosorbide mononitrate ER (IMDUR) 30 mg 24 hr tablet, Take 30 mg by mouth., Disp: , Rfl: ELIQUIS 5 mg tab(s), Take 1 tablet by mouth every 12 hours., Disp: , Rfl: amiodarone (PACERONE) 200 mg tablet, Take 1 tablet by mouth every 12 hours., Disp: , Rfl: liothyronine (CYTOMEL) 5 mcg tablet, Take 1 tablet by mouth every afternoon., Disp: , Rfl: escitalopram oxalate (LEXAPRO) 10 mg tablet, Take 1 tablet by mouth every afternoon., Disp: , Rfl: furosemide (LASIX) 20 mg tablet, Take 1 tablet by mouth once daily., Disp: 30 tablet, Rfl: [address] (PROTONIX) 40 mg tablet, Take 40 mg by mouth once daily., Disp: , Rfl: losartan (COZAAR) 100 mg tablet, , Disp: , Rfl: atorvastatin (LIPITOR) 40 mg tablet, Take 40 mg by mouth once daily., Disp: , Rfl: krill oil 500 mg cap, , Disp: , Rfl: ubidecarenone Q-10 (COENZYME Q-10) 10 mg cap, , Disp: , Rfl: BIOTIN ORAL, , Disp: , Rfl: vit A/vit C/vit E/zinc/copper (PRESERVISION AREDS ORAL), , Disp: , Rfl: venlafaxine ER (EFFEXOR XR) 75 mg 24 hr capsule, Take 75 mg by mouth once daily., Disp: , Rfl: TYRVAYA 0.03 mg/spray nasal spray, Instill 1 spray into both nostrils twice a day, Disp: , Rfl: traMADol (ULTRAM) 50 mg tablet, Take 50 mg by mouth three times daily as needed., Disp: , Rfl: potassium chloride ER (K-DUR, KLOR-CON) 10 mEq tablet, Take 10 mEq by mouth twice daily., Disp: , Rfl: aspirin 81 mg cap, Take by mouth., Disp: , Rfl: hydrALAZINE (APRESOLINE) 25 mg tablet, Take 25 mg by mouth., Disp: , Rfl: VIT C/VIT E/LUTEIN/MIN/OMEGA-3 (OCUVITE ORAL), Take by mouth., Disp: , Rfl: Multivitamin capsule, Take 1 capsule by mouth once daily. , Disp: , Rfl: ALLERGIES ALLERGIES Allergen Reactions Serina Inhibitors Rash, Hives Amlodipine Swelling Codeine Vomiting Dilaudid [Hydromorp* Vomiting Meperidine Vomiting Morphine Vomiting Neurontin [Gabapent* Mental Status Change COMPLETE REVIEW OF SYSTEMS GENERAL: No weight loss, malaise or fevers RESPIRATORY: Negative for cough, hemoptysis, wheezing, COPD, dyspnea or shortness of breath CARDIOVASCULAR: Negative for chest pain, leg swelling, hypertension, CHF or palpitations GI: No nausea, vomiting, or diarrhea : No history of dysuria, frequency or incontinence MUSCULOSKELETAL: Negative for joint pain or swelling, back pain or muscle pain SKIN: Negative for lesions, rash, and itching NEURO: No history of headaches, syncope, paralysis, seizures or tremors PHYSICAL EXAM Patient Vitals for the past 24 hrs: BP Temp Temp src Pulse Resp SpO2 Height Weight 10/27/230 -- -- -- -- -- -- -- 83 kg (183 lb) 10/27/23 1945 131/87 36.5 ?C (97.7 ?F) Oral (!) 57 18 97 % -- -- 10/27/23 1804 132/83 36.6 ?C (97.9 ?F) Oral (!) 56 18 99 % -- -- 10/27/23 1128 101/50 36.6 ?C (97.9 ?F) Oral (!) 56 14 99 % -- -- 10/27/23 0813 140/57 -- -- (!) (more content not included)... Normal [facility] TSH SerPl-aCncon 10-27-2023 TSH Qn 4.790 m[IU]/L High 0.270-4.20 0 [facility] Comment on above: Order Comment: Speci men Type: BLOOD SPECIMEN Ordering Facility: [facility] Address: [address] [place] [address] Performed By: #### L [id number], 95426-5, 58945-8, 35056-1 #### [facility] CLIA [id number] [address] [place] [address] [place] XR CHEST 2V FRONTAL/LATon XR CHEST 2V FRONTAL/LAT * * *Final Report* * * DATE OF EXAM: Oct 26 2023 10:11PM FVX 5291 - XR CHEST 2V FRONTAL/LAT / PROCEDURE REASON: Shortness of breath * * * * Physician Interpretation * * * * EXAMINATION: CHEST RADIOGRAPH (2 VIEW FRONTAL and LATERAL) CLINICAL HISTORY: Shortness of breath MQ: XC2_6 EXAM DATE/TIME: 10/26/2023 10:11 PM COMPARISON: 10/14/2023 RESULT: Lines, tubes, and devices: None. Lungs and pleura: No consolidation. No lung mass. No pleural effusion. No pneumothorax. Cardiomediastinal silhouette: Nonenlarged cardiac silhouette. Atherosclerosis is seen in the thoracic aorta. Bones and soft tissues: Unremarkable. IMPRESSION: No acute findings. Housing Management Representative: SCOTT Transcribe Date/Time: Oct 26 2023 10:31P Dictated by : TRUPTI ROBLES MD This examination was interpreted and the report reviewed and electronically signed by: TRUPTI ROBLES MD on Oct 26 2023 10:32PM EST [id number] Normal [facility] CBC W Auto Differential pane l (Bld)on 10-26-2023 Basophils (Bld) [#/Vol] 0.07 10*3/uL Normal <0.11 [facility] Comment on above: Order Comment: Speci men Type: BLOOD SPECIMEN Ordering Facility: [facility] Address: [address] [place] [address] Performed By: #### 5 7021-8 #### [facility] CLIA [id number] [address] [place] [address] [place] Basophils/100 WBC (Bld) 1.0 % Normal [facility] Comment on above: Order Comment: Speci men Type: BLOOD SPECIMEN Ordering Facility: [facility] Address: [address] [place] [address] Performed By: #### 5 7021-8 #### [facility] CLIA [id number] [address] [place] [address] [place] Differential cell count method Nom (Bld) Auto Normal [facility] Comment on above: Order Comment: Speci men Type: BLOOD SPECIMEN Ordering Facility: [facility] Address: [address] [place] [address] Performed By: #### 5 7021-8 #### [facility] CLIA [id number] [address] [place] [address] [place] Eosinophils (Bld) [#/Vol] 0.20 10*3/uL Normal <0.46 [facility] Comment on above: Order Comment: Speci men Type: BLOOD SPECIMEN Ordering Facility: [facility] Address: [address] [place] [address] Performed By: #### 5 7021-8 #### [facility] CLIA [id number] [address] [place] [address] [place] Eosinophils/100 WBC (Bld) 2.8 % Normal [facility] Comment on above: Order Comment: Speci men Type: BLOOD SPECIMEN Ordering Facility: [facility] Address: [address] [place] [address] Performed By: #### 5 7021-8 #### [facility] CLIA [id number] [address] [place] [address] [place] Erythrocyte distribution width (RBC) [Ratio] 13.5 % Normal 11.5-15.0 [facility] Comment on above: Order Comment: Speci men Type: BLOOD SPECIMEN Ordering Facility: [facility] Address: [address] [place] [address] Performed By: #### 5 7021-8 #### [facility] CLIA [id number] [address] [place] [address] [place] Hematocrit (Bld) [Volume fraction] 37.0 % Normal 36.0-46.0 [facility] Comment on above: Order Comment: Speci men Type: BLOOD SPECIMEN Ordering Facility: [facility] Address: [address] [place] [address] Performed By: #### 5 7021-8 #### [facility] CLIA [id number] [address] [place] [address] [place] Hemoglobin (Bld) [Mass/Vol] 12.3 g/dL Normal 11.5-15.5 [facility] Comment on above: Order Comment: Speci men Type: BLOOD SPECIMEN Ordering Facility: [facility] Address: [address] [place] [address] Performed By: #### 5 7021-8 #### [facility] CLIA [id number] [address] [place] [address] [place] Immature granulocytes (Bld) [#/Vol] 10*3/uL Normal <0.10 [facility] Comment on above: Order Comment: Speci men Type: BLOOD SPECIMEN Ordering Facility: [facility] Address: [address] [place] [address] Performed By: #### 5 7021-8 #### [facility] CLIA [id number] [address] [place] [address] [place] Immature granulocytes/100 WBC (Bld) 0.3 % Normal [facility] Comment on above: Order Comment: Speci men Type: BLOOD SPECIMEN Ordering Facility: [facility] Address: [address] [place] [address] Performed By: #### 5 7021-8 #### [facility] CLIA [id number] [address] [place] [address] [place] Lymphocytes (Bld) [#/Vol] 2.00 10*3/uL Normal 1.00-4.00 [facility] Comment on above: Order Comment: Speci men Type: BLOOD SPECIMEN Ordering Facility: [facility] Address: [address] [place] [address] Performed By: #### 5 7021-8 #### [facility] CLIA [id number] [address] [place] [address] [place] Lymphocytes/100 WBC (Bld) 28.3 % Normal [facility] Comment on above: Order Comment: Speci men Type: BLOOD SPECIMEN Ordering Facility: [facility] Address: [address] [place] [address] Performed By: #### 5 7021-8 #### [facility] CLIA [id number] [address] [place] [address] [place] MCH (RBC) [Entitic mass] 31.9 pg Normal 26.0-34.0 [facility] Comment on above: Order Comment: Speci men Type: BLOOD SPECIMEN Ordering Facility: [facility] Address: [address] [place] [address] Performed By: #### 5 7021-8 #### [facility] CLIA [id number] [address] [place] [address] [place] MCHC (RBC) [Mass/Vol] 33.2 g/dL Normal 30.5-36.0 [facility] Comment on above: Order Comment: Speci men Type: BLOOD SPECIMEN Ordering Facility: [facility] Address: [address] [place] [address] Performed By: #### 5 7021-8 #### [facility] CLIA [id number] [address] [place] [address] [place] MCV (RBC) [Entitic vol] 96.1 fL Normal 80.0-100.0 [facility] Comment on above: Order Comment: Speci men Type: BLOOD SPECIMEN Ordering Facility: [facility] Address: [address] [place] [address] Performed By: #### 5 7021-8 #### [facility] CLIA [id number] [address] [place] [address] [place] Monocytes (Bld) [#/Vol] 0.89 10*3/uL High <0.87 [facility] Comment on above: Order Comment: Speci men Type: BLOOD SPECIMEN Ordering Facility: [facility] Address: [address] [place] [address] Performed By: #### 5 7021-8 #### [facility] CLIA [id number] [address] [place] [address] [place] Monocytes/100 WBC (Bld) 12.6 % Normal [facility] Comment on above: Order Comment: Speci men Type: BLOOD SPECIMEN Ordering Facility: [facility] Address: [address] [place] [address] Performed By: #### 5 7021-8 #### [facility] CLIA [id number] [address] [place] [address] [place] Neutrophils (Bld) [#/Vol] 3.89 10*3/uL Normal 1.45-7.50 [facility] Comment on above: Order Comment: Speci men Type: BLOOD SPECIMEN Ordering Facility: [facility] Address: [address] [place] [address] Performed By: #### 5 7021-8 #### [facility] CLIA [id number] [address] [place] [address] [place] Neutrophils/100 WBC (Bld) 55.0 % Normal [facility] Comment on above: Order Comment: Speci men Type: BLOOD SPECIMEN Ordering Facility: [facility] Address: [address] [place] [address] Performed By: #### 5 7021-8 #### [facility] CLIA [id number] [address] [place] [address] [place] Nucleated RBC (Bld) [#/Vol] 10*3/uL Normal <0.01 [facility] Comment on above: Order Comment: Speci men Type: BLOOD SPECIMEN Ordering Facility: [facility] Address: [address] [place] [address] Performed By: #### 5 7021-8 #### [facility] CLIA [id number] [address] [place] [address] [place] Nucleated RBC/100 WBC (Bld) [Ratio] 0.0 /100 WBC Normal [facility] Comment on above: Order Comment: Speci men Type: BLOOD SPECIMEN Ordering Facility: [facility] Address: [address] [place] [address] Performed By: #### 5 7021-8 #### [facility] CLIA [id number] [address] [place] [address] [place] Platelet mean volume (Bld) [Entitic vol] 11.4 fL Normal 9.0-12.7 [facility] Comment on above: Order Comment: Speci men Type: BLOOD SPECIMEN Ordering Facility: [facility] Address: [address] [place] [address] Performed By: #### 5 7021-8 #### [facility] CLIA [id number] [address] [place] [address] [place] Platelets (Bld) [#/Vol] 205 10*3/uL Normal 150-400 [facility] Comment on above: Order Comment: Speci men Type: BLOOD SPECIMEN Ordering Facility: [facility] Address: [address] [place] [address] Performed By: #### 5 7021-8 #### [facility] CLIA [id number] [address] [place] [address] [place] RBC (Bld) [#/Vol] 3.85 10*6/uL Low 3.90-5.20 [facility] Comment on above: Order Comment: Speci men Type: BLOOD SPECIMEN Ordering Facility: [facility] Address: [address] [place] [address] Performed By: #### 5 7021-8 #### [facility] CLIA [id number] [address] [place] [address] [place] WBC (Bld) [#/Vol] 7.07 10*3/uL Normal 3.70-11.00 [facility] Comment on above: Order Comment: Speci men Type: BLOOD SPECIMEN Ordering Facility: [facility] Address: [address] [place] [address] Performed By: #### 5 7021-8 #### [facility] CLIA [id number] [address] [place] [address] [place] Comprehensive metabolic 2000 panelon 10-26-2023 Albumin [Mass/Vol] 4.1 g/dL Normal 3.9-4.9 [facility] Comment on above: Order Comment: Speci men Type: BLOOD SPECIMEN Ordering Facility: [facility] Address: [address] [place] [address] Performed By: #### L [id number], 69043-0, 37891-1, 54074-8 #### [facility] CLIA [id number] [address] [place] [address] [place] ALP [Catalytic activity/Vol] 102 U/L Normal 34-123 [facility] Comment on above: Order Comment: Speci men Type: BLOOD SPECIMEN Ordering Facility: [facility] Address: [address] [place] [address] Performed By: #### L [id number], 77531-9, 45692-7, 81685-3 #### [facility] CLIA [id number] [address] [place] [address] [place] ALT [Catalytic activity/Vol] 12 U/L Normal 7-38 [facility] Comment on above: Order Comment: Speci men Type: BLOOD SPECIMEN Ordering Facility: [facility] Address: [address] [place] [address] Performed By: #### L [id number], 96997-3, 48300-4, 76957-4 #### [facility] CLIA [id number] [address] [place] [address] [place] Anion gap [Moles/Vol] 11 mmol/L Normal 9-18 [facility] Comment on above: Order Comment: Speci men Type: BLOOD SPECIMEN Ordering Facility: [facility] Address: [address] [place] [address] Performed By: #### L [id number], 52776-9, 42379-0, 68391-7 #### [facility] CLIA [id number] [address] [place], [place] [id number] [place] AST [Catalytic activity/Vol] 15 U/L Normal 13-35 [facility] Comment on above: Order Comment: Speci men Type: BLOOD SPECIMEN Ordering Facility: [facility] Address: [address] [place] [address] Performed By: #### L [id number], 98081-9, 26184-2, 36572-9 #### [facility] CLIA [id number] [address] [place] [address] [place] Bilirubin [Mass/Vol] 0.4 mg/dL Normal 0.2-1.3 [facility] Comment on above: Order Comment: Speci men Type: BLOOD SPECIMEN Ordering Facility: [facility] Address: [address] [place] [address] Performed By: #### L [id number], 18131-5, 24016-8, 23244-1 #### [facility] CLIA [id number] [address] [place] [address] [place] Calcium [Mass/Vol] 9.6 mg/dL Normal 8.5-10.2 [facility] Comment on above: Order Comment: Speci men Type: BLOOD SPECIMEN Ordering Facility: [facility] Address: [address] [place] [address] Performed By: #### L [id number], 08312-1, 52720-2, 99723-4 #### [facility] CLIA [id number] [address] [place] [address] [place] Chloride [Moles/Vol] 106 mmol/L High 97-105 [facility] Comment on above: Order Comment: Speci men Type: BLOOD SPECIMEN Ordering Facility: [facility] Address: [address] [place] [address] Performed By: #### L [id number], 55244-5, 32715-8, 54482-7 #### [facility] CLIA [id number] [address] [place] [address] [place] CO2 [Moles/Vol] 25 mmol/L Normal 22-30 [facility] Comment on above: Order Comment: Speci men Type: BLOOD SPECIMEN Ordering Facility: [facility] Address: [address] [place] [address] Performed By: #### L [id number], 49168-4, 75660-1, 78519-7 #### [facility] CLIA [id number] [address] [place] [address] [place] Creatinine [Mass/Vol] 1.60 mg/dL High 0.58-0.96 [facility] Comment on above: Order Comment: Specclara bill Type: BLOOD SPECIMEN Ordering Facility: [facility] Address: [address] [place] [address] Performed By: #### L [id number], 42451-2, 37512-8, 39149-9 #### [facility] CLIA [id number] [place] [address] [place] Creatinine and Glomerular filtration rate.predicted panel (S/P/Bld) 33 mL/min/1.73m??? Low >=60 [facility] Comment on above: Order Comment: [facility] Type: BLOOD SPECIMEN Ordering Facility: [facility] Address: [address] [place] [address] Result Comment: Amy mated Glomerular Filtration Rate [...] accurately reflect actual GFR. Performed By: #### L [id number], 67349-1, 87931-6, 99189-7 #### [facility] CLIA [id number] [address] [place] [address] [place] [place] Glucose [Mass/Vol] 89 mg/dL Normal 74-99 [facility] Comment on above: Order Comment: Speci fly Type: BLOOD SPECIMEN Ordering Facility: [facility] Address: [address] [place] [address] Result Comment: The [place] Diabetes Association (ADA) provides guidance for cutoff [...] Standards of Medical Care in Diabetes 2016, [place] Diabetes Association. Diabetes Care. 2016.39(Suppl 1). Performed By: #### L [id number], 45102-4, 23255-9, 59170-1 #### [facility] CLIA [id number] [address] [place] [address] [place] Potassium [Moles/Vol] 4.2 mmol/L Normal 3.7-5.1 [facility] Comment on above: Order Comment: Tremayne bill Type: BLOOD SPECIMEN Ordering Facility: [facility] Address: [address] [place] [address] Performed By: #### L [id number], 29750-0, 53615-5, 24932-7 #### [facility] CLIA [id number] [address] [place] [address] [place] Protein [Mass/Vol] 6.5 g/dL Normal 6.3-8.0 [facility] Comment on above: Order Comment: [place]rem[place] bill Type: BLOOD SPECIMEN Ordering Facility: [facility] Address: [address] [place] [address] Performed By: #### L GT2365, 68004-3, 23848-1, 06513-6 #### [facility] CLIA [id number] [address] [place] [address] [place] Sodium [Moles/Vol] 142 mmol/L Normal 136-144 [facility] Comment on above: Order Comment: Tremayne bill Type: BLOOD SPECIMEN Ordering Facility: [facility] Address: [address] [place] [address] Performed By: #### L [id number], 65346-1, 36284-8, 19124-6 #### [facility] CLIA [id number] [address] [place] [address] [place] Urea nitrogen [Mass/Vol] 30 mg/dL High 7-21 [facility] Comment on above: Order Comment: Tremayne bill Type: BLOOD SPECIMEN Ordering Facility: [facility] Address: [address] [place] [address] Performed By: #### L MO9813, 72069-1, 79051-5, 71581-9 #### [facility] CLIA [id number] ECG COMPLETEon 10-26-2023 ECG COMPLETE Ventricular Rate : 6 4 BPM Atrial Rate : 64 BPM P-R Interval : 172 ms QRS Duration : 93 ms Q-T Interval : 453 ms QTC Calculation(Bazett) : 468 ms Calculated P [place] : 47 degrees Calculated R [place] : 69 degrees Calculated T [place] : 59 degrees Sinus rhythm Left atrial enlargement Minimal ST depression, inferior leads Abnormal ECG 2123 Confirmed by DO BURNETT KATLYN ([id number]), senior editor ORESTES GOMEZ ([id number]) on 10/27/2023 1:16:01 PM NAME : CECE HUBBARD PID : [id number] : 1945 Gender : Female Race : ORD : [id number] Procedure Date : Oct 26 2023 21:18:22 Edit Date : Oct 27 2023 13:16:02 Diagnosis: Sinus rhythm Left atrial enlargement Minimal ST depression, inferior leads Abnormal ECG 2123 Confirmed by DO BURNETT KATLYN ([id number]), senior editor ORESTES GOMEZ ([id number]) on 10/27/2023 1:16:01 PM Test Reason : Chest Pain Location : 402 : FVED fved23 Overread By : DO BURNETT KATLYN Edited By : ORESTES GOMEZ Referred By : , Acquired by : [id number], Normal [facility] HIGH SENSITIVITY TROPONIN T (INITIAL)on 10-26-2023 Troponin T.cardiac High sensitivity method [Mass/Vol] 18 ng/L High <12 [facility] Comment on above: Order Comment: Tremayne bill Type: BLOOD SPECIMEN Ordering Facility: [facility] Address: [facility] [place] [address] Result Comment: When assessing risk for acute [...] 30 day MACE. Performed By: #### L [id number], 44392-5, 48073-6, 09160-8 #### [facility] CLIA [id number] [address] [place] [address] [place] [facility] Magnesium [Mass/Vol] 2.0 mg/dL Normal 1.7-2.3 [facility] Comment on above: Order Comment: Tremayne bill Type: BLOOD SPECIMEN Ordering Facility: [facility] Address: [address] [place] [address] Performed By: #### L [id number], 10493-2, 84591-6, 23340-5 #### [facility] CLIA [id number] [place] [address] [place] NT-proBNP [facility] 10-25 Natriuretic peptide.B prohormone N-Terminal [Mass/Vol] 456 pg/mL High <450 [facility] Comment on above: Order Comment: Tremayne bill Type: BLOOD SPECIMEN Ordering Facility: [facility] Address: [address] [place] [address] Performed By: #### L [id number], 72134-3, 34384-8, 95314-4 #### [facility] CLIA [id number] [place] [address] [place] CNPNon 10-17-2023 CNPN Telephone (HVICTR) -- CECE HUBBARD ([id number]) 1945 F Date Time Provider Department 10/17/23 ZIYAD GIBBONS HVICTR During your visit today, we recorded the following information about you: Ziyad Gibbons RN 10/17/2023 7:08 PM Signed Spoke to pt's daughter, Barry Church she is the spokes person for p,. She states that pt needs TMVR. Her phone number is [phone] and email [email or web address] have sent her the usual TMVR [...] Vomiting Date Reviewed: 10/13/2023 Reviewed by: Sarah Villavicencio RN - Fully Assessed Prescriptions as of [...] artery disease) [I25.10] 04/24/2022 Encounter Status:Closed by ZIYAD GIBBONS on 10/17/23 Normal [facility] CBC W Auto Differential pane l (Bld)on 10-14-2023 Basophils (Bld) [#/Vol] 0.08 10*3/uL Normal <0.11 [facility] Comment on above: Order Comment: Speci men Type: BLOOD SPECIMEN Ordering Facility: [facility] Address: [address] [place] [address] Performed By: #### 5 7021-8 #### [facility] CLIA [id number] [address] [place] [address] [place] Basophils/100 WBC (Bld) 0.9 % Normal [facility] Comment on above: Order Comment: Speci men Type: BLOOD SPECIMEN Ordering Facility: [facility] Address: [address] [place] [address] Performed By: #### 5 7021-8 #### [facility] CLIA [id number] [address] [place] [address] [place] Differential cell count method Nom (Bld) Auto Normal [facility] Comment on above: Order Comment: Speci men Type: BLOOD SPECIMEN Ordering Facility: [facility] Address: [address] [place] [address] Performed By: #### 5 7021-8 #### [facility] CLIA [id number] [address] [place] [address] [place] Eosinophils (Bld) [#/Vol] 0.24 10*3/uL Normal <0.46 [facility] Comment on above: Order Comment: Speci men Type: BLOOD SPECIMEN Ordering Facility: [facility] Address: [address] [place] [address] Performed By: #### 5 7021-8 #### [facility] CLIA [id number] [address] [place] [address] [place] Eosinophils/100 WBC (Bld) 2.8 % Normal [facility] Comment on above: Order Comment: Speci men Type: BLOOD SPECIMEN Ordering Facility: [facility] Address: [address] [place] [address] Performed By: #### 5 7021-8 #### [facility] CLIA [id number] [address] [place] [address] [place] Erythrocyte distribution width (RBC) [Ratio] 13.7 % Normal 11.5-15.0 [facility] Comment on above: Order Comment: Speci men Type: BLOOD SPECIMEN Ordering Facility: [facility] Address: [address] [place] [address] Performed By: #### 5 7021-8 #### [facility] CLIA [id number] [address] [place] [address] [place] Hematocrit (Bld) [Volume fraction] 37.1 % Normal 36.0-46.0 [facility] Comment on above: Order Comment: Speci men Type: BLOOD SPECIMEN Ordering Facility: [facility] Address: [address] [place] [address] Performed By: #### 5 7021-8 #### [facility] CLIA [id number] [address] [place] [address] [place] Hemoglobin (Bld) [Mass/Vol] 12.3 g/dL Normal 11.5-15.5 [facility] Comment on above: Order Comment: Speci men Type: BLOOD SPECIMEN Ordering Facility: [facility] Address: [address] [place] [address] Performed By: #### 5 7021-8 #### [facility] CLIA [id number] [address] [place] [address] [place] Immature granulocytes (Bld) [#/Vol] 10*3/uL Normal <0.10 [facility] Comment on above: Order Comment: Speci men Type: BLOOD SPECIMEN Ordering Facility: [facility] Address: [address] [place] [address] Performed By: #### 5 7021-8 #### [facility] CLIA [id number] [address] [place] [address] [place] Immature granulocytes/100 WBC (Bld) 0.2 % Normal [facility] Comment on above: Order Comment: Speci men Type: BLOOD SPECIMEN Ordering Facility: [facility] Address: [address] [place] [address] Performed By: #### 5 7021-8 #### [facility] CLIA [id number] [address] [place] [address] [place] Lymphocytes (Bld) [#/Vol] 2.43 10*3/uL Normal 1.00-4.00 [facility] Comment on above: Order Comment: Speci men Type: BLOOD SPECIMEN Ordering Facility: [facility] Address: [address] [place] [address] Performed By: #### 5 7021-8 #### [facility] CLIA [id number] [address] [place] [address] [place] Lymphocytes/100 WBC (Bld) 28.5 % Normal [facility] Comment on above: Order Comment: Speci men Type: BLOOD SPECIMEN Ordering Facility: [facility] Address: [address] [place] [address] Performed By: #### 5 7021-8 #### [facility] CLIA [id number] [address] [id number] [address] [place] MCH (RBC) [Entitic mass] 31.5 pg Normal 26.0-34.0 [facility] Comment on above: Order Comment: Speci men Type: BLOOD SPECIMEN Ordering Facility: [facility] Address: [address] [place] [address] Performed By: #### 5 7021-8 #### [facility] CLIA [id number] [address] [place] [address] [place] MCHC (RBC) [Mass/Vol] 33.2 g/dL Normal 30.5-36.0 [facility] Comment on above: Order Comment: Speci men Type: BLOOD SPECIMEN Ordering Facility: [facility] Address: [address] [place] [address] Performed By: #### 5 7021-8 #### [facility] CLIA [id number] [address] [place] [address] [place] MCV (RBC) [Entitic vol] 95.1 fL Normal 80.0-100.0 [facility] Comment on above: Order Comment: Speci men Type: BLOOD SPECIMEN Ordering Facility: [facility] Address: [address] [place] [address] Performed By: #### 5 7021-8 #### [facility] CLIA [id number] [address] [place] [address] [place] Monocytes (Bld) [#/Vol] 1.05 10*3/uL High <0.87 [facility] Comment on above: Order Comment: Speci men Type: BLOOD SPECIMEN Ordering Facility: [facility] Address: [address] [place] [address] Performed By: #### 5 7021-8 #### [facility] CLIA [id number] [address] [place] [address] [place] Monocytes/100 WBC (Bld) 12.3 % Normal [facility] Comment on above: Order Comment: Speci men Type: BLOOD SPECIMEN Ordering Facility: [facility] Address: [address] [place] [address] Performed By: #### 5 7021-8 #### [facility] CLIA [id number] [address] [place] [address] [place] Neutrophils (Bld) [#/Vol] 4.70 10*3/uL Normal 1.45-7.50 [facility] Comment on above: Order Comment: Speci men Type: BLOOD SPECIMEN Ordering Facility: [facility] Address: [address] [place] [address] Performed By: #### 5 7021-8 #### [facility] CLIA [id number] [address] [place] [address] [place] Neutrophils/100 WBC (Bld) 55.3 % Normal [facility] Comment on above: Order Comment: Speci men Type: BLOOD SPECIMEN Ordering Facility: [facility] Address: [address] [place] [address] Performed By: #### 5 7021-8 #### [facility] CLIA [id number] [address] [place] [address] [place] Nucleated RBC (Bld) [#/Vol] 10*3/uL Normal <0.01 [facility] Comment on above: Order Comment: Speci men Type: BLOOD SPECIMEN Ordering Facility: [facility] Address: [address] [place] [address] Performed By: #### 5 7021-8 #### [facility] CLIA [id number] [address] [place] [address] [place] Nucleated RBC/100 WBC (Bld) [Ratio] 0.0 /100 WBC Normal [facility] Comment on above: Order Comment: Speci men Type: BLOOD SPECIMEN Ordering Facility: [facility] Address: [address] [place] [address] Performed By: #### 5 7021-8 #### [facility] CLIA [id number] [address] [place] [address] [place] Platelet mean volume (Bld) [Entitic vol] 10.7 fL Normal 9.0-12.7 [facility] Comment on above: Order Comment: Speci men Type: BLOOD SPECIMEN Ordering Facility: [facility] Address: [address] [place] [address] Performed By: #### 5 7021-8 #### [facility] CLIA [id number] [address] [place] [address] [place] Platelets (Bld) [#/Vol] 219 10*3/uL Normal 150-400 [facility] Comment on above: Order Comment: Speci men Type: BLOOD SPECIMEN Ordering Facility: [facility] Address: [address] [place] [address] Performed By: #### 5 7021-8 #### [facility] CLIA [id number] [address] [place] [address] [place] RBC (Bld) [#/Vol] 3.90 10*6/uL Normal 3.90-5.[address] [facility] Comment on above: Order Comment: Speci men Type: BLOOD SPECIMEN Ordering Facility: [facility] Address: [address] [place] [address] Performed By: #### 5 7021-8 #### [facility] CLIA [id number] [address] [place] [address] [place] WBC (Bld) [#/Vol] 8.52 10*3/uL Normal 3.70-11.[address] [facility] Comment on above: Order Comment: Speci men Type: BLOOD SPECIMEN Ordering Facility: [facility] Address: [address] [place] [address] Performed By: #### 5 7021-8 #### [facility] CLIA [id number] [address] [place] [address] [place] Comprehensive metabolic 2000 panelon 10-14-2023 Albumin [Mass/Vol] 4.0 g/dL Normal 3.9-4.9 [facility] Comment on above: Order Comment: Speci men Type: BLOOD SPECIMENOrdering Facility: [facility] Address: [address] [place] [address] Performed By: #### 2 4323-8, HSTNT, , 59955-4 ####[facility] [id number] [place] [address] [place] ALP [Catalytic activity/Vol] 111 U/L Normal 34-123 [facility] Comment on above: Order Comment: Speci men Type: BLOOD SPECIMENOrdering Facility: [facility] Address: [address] [place] [address] Performed By: #### 2 4323-8, HSTNT, , 14299-7 ####[facility] [id number] [place] [address] [place] ALT [Catalytic activity/Vol] 13 U/L Normal 7-38 [facility] Comment on above: Order Comment: Speci men Type: BLOOD SPECIMENOrdering Facility: [facility] Address: [address] [place] [address] Performed By: #### 2 4323-8, HSTNT, , 48961-0 ####[facility] [id number] [place] [address] [place] Anion gap [Moles/Vol] 13 mmol/L Normal 9-18 [facility] Comment on above: Order Comment: Speci men Type: BLOOD SPECIMENOrdering Facility: [facility] Address: [address] [place] [address] Performed By: #### 2 4323-8, HSTNT, , 32442-0 ####[facility] [id number] [address] [address] [place] AST [Catalytic activity/Vol] 14 U/L Normal 13-35 [facility] Comment on above: Order Comment: Speci men Type: BLOOD SPECIMENOrdering Facility: [facility] Address: [address] [place] [address] Performed By: #### 2 4323-8, HSTNT, , 38422-6 ####[facility] [id number] [place] [address] [place] Bilirubin [Mass/Vol] 0.5 mg/dL Normal 0.2-1.3 [facility] Comment on above: Order Comment: Speci men Type: BLOOD SPECIMENOrdering Facility: [facility] Address: [address] [place] [address] Performed By: #### 2 4323-8, HSTNT, , 34896-6 ####[facility] [id number] [place] [address] [place] Calcium [Mass/Vol] 9.4 mg/dL Normal 8.5-10.2 [facility] Comment on above: Order Comment: Speci men Type: BLOOD SPECIMENOrdering Facility: [facility] Address: [address] [place] [address] Performed By: #### 2 4323-8, HSTNT, , 74910-8 ####[facility] [id number] [place] [address] [place] Chloride [Moles/Vol] 105 mmol/L Normal 97-105 [facility] Comment on above: Order Comment: Speci men Type: BLOOD SPECIMENOrdering Facility: [facility] Address: [address] [place] [address] Performed By: #### 2 4323-8, HSTNT, , 81792-7 ####[facility] [id number] [place] [id number] [place] CO2 [Moles/Vol] 22 mmol/L Normal 22-30 [facility] Comment on above: Order Comment: Speci men Type: BLOOD SPECIMENOrdering Facility: [facility] Address: [address] [place] [address] Performed By: #### 2 4323-8, HSTNT, , 88384-4 ####[facility] [id number] [place] [address] [place] Creatinine [Mass/Vol] 1.36 mg/dL High 0.58-0.96 [facility] Comment on above: Order Comment: Speci men Type: BLOOD SPECIMENOrdering Facility: [facility] Address: [address] [place] [address] Performed By: #### 2 4323-8, HSTNT, , 68796-8 ####[facility] [id number] [place] [address] [place] Creatinine and Glomerular filtration rate.predicted panel (S/P/Bld) 40 mL/min/1.73m??? Low >=60 [facility] Comment on above: Order Comment: Speci men Type: BLOOD SPECIMENOrdering Facility: [facility] Address: [address] [place] [address] Result Comment: Amy mated Glomerular Filtration Rate [...] accurately reflect actual GFR. Performed By: #### 2 4323-8, HSTNT, , 14773-4 ####[facility] [id number] [place] [id number] [place] Glucose [Mass/Vol] 103 mg/dL High 74-99 [facility] Comment on above: Order Comment: Speci men Type: BLOOD SPECIMENOrdering Facility: [facility] Address: [address] [place] [address] [place] [id number] Result Comment: The [place] Diabetes Association (ADA) provides guidance for cutoff [...] Standards of Medical Care in Diabetes 2016, [place] [employer]. Diabetes Care. 2016.39(Suppl 1). Performed By: #### 2 4323-8, HSTNT, , 53237-1 ####[facility] [id number] [place] [address] [place] Potassium [Moles/Vol] 4.6 mmol/L Normal 3.7-5.1 [facility] Comment on above: Order Comment: Speci men Type: BLOOD SPECIMENOrdering Facility: [facility] Address: [address] [place] [address] Performed By: #### 2 4323-8, HSTNT, , 91737-3 ####[facility] [id number] [place] [address] [place] Protein [Mass/Vol] 6.3 g/dL Normal 6.3-8.0 [facility] Comment on above: Order Comment: Speci men Type: BLOOD SPECIMENOrdering Facility: [facility] Address: [address] [place] [id number] Performed By: #### 2 4323-8, HSTNT, , 93455-0 ####[facility] [id number] [place] [address] [place] Sodium [Moles/Vol] 140 mmol/L Normal 136-144 [facility] Comment on above: Order Comment: Speci men Type: BLOOD SPECIMENOrdering Facility: [facility] Address: [address] [place] [address] Performed By: #### 2 4323-8, HSTNT, 89676-9, 89220-1 ####[facility] [id number] [place] [address] [place] Urea nitrogen [Mass/Vol] 21 mg/dL Normal 7-21 [facility] Comment on above: Order Comment: Speci men Type: BLOOD SPECIMENOrdering Facility: [facility] Address: [address] [place] [address] Performed By: #### 2 4323-8, HSTNT, 01488-3, 02154-7 ####[facility] [id number] [place] [address] [place] D dimer FEU PPP-mCncon 10-13 Fibrin D-dimer FEU (PPP) [Mass/Vol] 410 ng/mL FEU Normal <500 [facility] Comment on above: Order Comment: Speci men Type: BLOOD SPECIMENOrdering Facility: [facility] Address: [address] [place] [address] Performed By: #### 4 8065-7, 92140-0 ####[facility] [id number] [place] [address] [place] [id number] 10-14-2023 ECG01 Ventricular Rate : 6 3 BPM Atrial Rate : 63 BPM P-R Interval : 158 ms QRS Duration : 72 ms Q-T Interval : 420 ms QTC Calculation(Bazett) : 429 ms Calculated P [place] : 31 degrees Calculated R [place] : 63 degrees Calculated T [place] : 61 degrees NORMAL SINUS RHYTHM NORMAL ECG Confirmed by MD ODOM MATTHEW ([id number]), senior editor JOI CAGLE ([id number]) on 10/17/2023 7:48:10 AM NAME : CECE HUBBARD PID : [id number] : 1945 Gender : Female Race : ORD : Procedure Date : Oct 13 2023 23:03:23 Edit Date : Oct 17 2023 07:48:14 Diagnosis: NORMAL SINUS RHYTHM NORMAL ECG Confirmed by MD ODOM MATTHEW ([id number]), senior editor JOI CAGLE ([id number]) on 10/17/2023 7:48:10 AM Test Reason : Location : 2 : EDNS 017 Overread By : MD ODOM MATTHEW Edited By : JOI CAGLE Referred By : , Acquired by : MS, Normal [facility] ED NOTEon 10-14-2023 ED NOTE HNO ID: [id number] Author: GILMER BERRY RN Service: Emergency Medicine Author Type: Registered Nurse Type: ED Notes Filed: 10/14/2023 07:37 Note Text: Discussed discharge paperwork, follow-up and signs AND sx of when to return to the ER with patient. Patient verbalizes understanding and left with AVS in hand, ambulatory, steady gait, NAD. Normal [facility] ED NOTE HNO ID: [id number] Author: SENIA NUÑEZ CT Service: Emergency Medicine Author Type: Clinical Inspector Soldering Type: ED Notes Filed: 10/14/2023 01:08 Note Text: Updating pt vs Normal [facility] ED PROV NOTEon 10-14-2023 ED PROV NOTE HNO ID: [id number] Author: CHRISTIE PEÑALOZA MD Service: Emergency Medicine Author Type: Physician Type: ED Provider Notes Filed: 10/16/2023 00:13 Note Text: ED Provider Note Patient Name: Cece Hubbard : 1945 SERVICE DATE: 10/13/23 History Patient presents with: Shortness of Breath: For a couple days started on amio and eliquis for Afib 78-year-old female with history of mitral valve disease diagnosed at a hospital in [place] and recent atrial fibrillation who has been [...] Temp Temp src Resp SpO2 Weight Height 10/13/23 2255 10/13/23 2255 10/13/23 2255 10/14/23 0106 10/13/23 2255 10/13/23 2255 10/13/23 225 -- 180/91 71 36.6 ?C (97.8 ?F) [...] Abnormal; Notable for the following components: Abs Walton 1.05 (*) <0.87 k/uL All other components [...] ng/mL FEU. (more content not included)... Normal [facility] ED Triage Noteon 10-14-2023 ED Triage Note HNO ID: [id number] Author: GORAN SOLIZ JR, MD Service: Emergency Medicine Author Type: Physician Type: ED Triage Notes Filed: 10/13/2023 22:58 Note Text: ED INTAKE NOTE Patient Name: Cece Hubbard Service Date: 10/13/23 BRIEF HPI: 78-year-old female with a recent diagnosis of atrial fibrillation as well as shortness of breath with chest heaviness for the past couple of days. She was started on amiodarone and Eliquis 1-/2 to 2 weeks ago. She denies fevers or chills. BRIEF EXAM: Awake and Alert. In no apparent distress. INTAKE WORKUP: Labs EKG Chest x-ray No diagnosis found. Provider examination performed via virtual platform with assistance from bedside clinician. SIGNATURE: Goran Soliz MD Normal [facility] Fibrin D-dimer FEU (PPP) [Ma ss/Vol]on 10-14-2023 D DIMER AGE-RELATED CUTOFF 770 ng/mL FEU Normal [facility] Comment on above: Order Comment: Speci men Type: BLOOD SPECIMENOrdering Facility: [facility] Address: [address] [place] [address] Performed By: #### 4 8065-7, 47459-6 ####[facility] LABCLIA [id number] [place] [address] [place] HIGH SENSITIVITY TROPONIN To n 10-14-2023 Troponin T.cardiac High sensitivity method [Mass/Vol] 20 ng/L High <12 [facility] Comment on above: Order Comment: Speci men Type: BLOOD SPECIMENOrdering Facility: [facility] Address: [address] [place] [address] Result Comment: When assessing risk for acute [...] for 30 day MACE. Performed By: #### 2 4323-8, HSTNT, 19649-0, 81405-4 ####[facility] LABCLIA [id number] [place] [address] [place] HIGH SENSITIVITY TROPONIN T (INITIAL)on 10-14-2023 Troponin T.cardiac High sensitivity method [Mass/Vol] 18 ng/L High <12 [facility] Comment on above: Order Comment: Tremayne bill Type: BLOOD SPECIMENOrdering Facility: [facility] Address: [address] [place] [address] Result Comment: When assessing risk for acute [...] 30 day MACE. Performed By: #### L [id number] ####[facility] LABCLIA [id number] [place] [address] [place] HIGH SENSITIVITY TROPONIN T (SECOND)on 10-14-2023 Troponin T.cardiac High sensitivity method [Mass/Vol] 19 ng/L High <12 [facility] Comment on above: Order Comment: Tremayne bill Type: BLOOD SPECIMENOrdering Facility: [facility] Address: [address] [place] [address] Result Comment: When assessing risk for acute [...] 30 day MACE. Performed By: #### L [id number] ####[facility] LABCLIA [id number] [place] [address] [place] Magnesium SerPl-mCncon 10-13 Magnesium [Mass/Vol] 1.9 mg/dL Normal 1.7-2.3 [facility] Comment on above: Order Comment: Tremayne bill Type: BLOOD SPECIMENOrdering Facility: [facility] Address: [address] [place] [address] Performed By: #### 2 4323-8, HSTNT, 11193-0, 72263-3 ####[facility] LABCLIA [id number] [address] NT-proBNP [facility] 10-13 Natriuretic peptide.B prohormone N-Terminal [Mass/Vol] 719 pg/mL High <450 [facility] Comment on above: Order Comment: Speci men Type: BLOOD SPECIMENOrdering Facility: [facility] Address: [address] [place] [address] Performed By: #### 2 4323-8, HSTNT, 99033-0, 64301-8 ####[facility] LABCLIA [id number] [address] [place] PT panel Coag (PPP)on 2023 INR Coag (PPP) [Relative time] 1.1 {INR} Normal 0.9-1.3 [facility] Comment on above: Order Comment: Speci men Type: BLOOD SPECIMENOrdering Facility: [facility] Address: [address] [place] [address] Result Comment: Janeth min K Antagonist (VKA) Therapeutic Range: INR 2 to 3 (Target INR of 2.5) Note: For patients treated with VKA drugs, such as warfarin, the [place] [employer] 2012 Guideline recommends [...] to 3.5 (target INR of 3). Matteo GH, et al. Chest 2012, 141:7S-47S Mary RA et al. [facility] 2017, 70: 252-289 Performed By: #### 4 8065-7, 72356-6 ####[facility] LABCLIA [id number] [id number] [address] [place] PT Coag (PPP) [Time] 11.3 s Normal 9.7-13.0 [facility] Comment on above: Order Comment: Speci men Type: BLOOD SPECIMENOrdering Facility: [facility] Address: [address] [place] [address] Performed By: #### 4 8065-7, 82749-2 ####[facility] LABCLIA [id number] [facility]PITALDanna ABDI [address] [place] XR CHEST 1V FRONTAL [...] IMPRESSION: Small pleural effusions and/or pleural thickening. Housing Management Representative: SCOTT Transcribe Date/Time: Oct 14 2023 3:07A Dictated by : WADE BOWMAN DO This examination was interpreted and the report reviewed and electronically signed by: MEHDI ROBLEDO MD on Oct 14 2023 3:35AM EST [id number] Normal [facility] 36on 09-22-2023 36 Patient returned our phone call to get Cardiopulmonary Exercise Test scheduled. She told staff that she is not going to do this test and wanted us to inform her provider. When asked why she did not want to do it, she replied that she just doesn't want to. We will inform provider. [facility] 36on 09-19-2023 36 Left voicemail for p atient to schedule cardiopulmonary exercise test. Normal [facility] Office Visiton 09-03-2023 Follow-up visit [id number] Brandi Hubbard cca 1945 Date Provider Department Center 09/03/2023 EDWIN PETERS LANA Rodríguez Family History Problem Relation Age of Onset Coronary artery disease Father Hypertension Father Family Status - Relation Status Age at Father Level of Service:10425 [place] OFFICE/OUTPATIENT ESTABLISHED MOD MDM 30 MIN [facility] Documentationon 08-06-2023 Documentation [id number] StevieBrandi Wilson 1945 Date Provider Department Center 08/06/2023 BROOK CRAWLEY [facility] Family History Problem Relation Age of Onset Coronary artery disease Father Hypertension Father Family Status - Relation Status Age at Father [facility] HPon 08-06-2023 HP H&P reviewed. The pa patrick was examined and there are no changes to the H&P. [facility] NURSNOTEon 08-06-2023 NURSNOTE Patient to be seen i n clinic by Dr. Blunt or nurse practitioner in 1 month to discuss VIOLA results and medical plan. Message left with [facility] to call patient with appoint date and time. Patient provided the number ([phone]) to call [facility] if she does not receive an appointment call by 08/08/2023. [facility] NURSNOTE Bedside swallow stud y completed and passed. [facility] NURSNOTE RN educated pt on d/ c instructions. RN encouraged pt to voice any questions or concerns. Pt verbalizes no questions or concerns at this time. Pt was wheeled off of unit with all of belongings. [facility] Prep for Procedureon 023 Prep for Procedure [id number] Brandi Hubbard cca 1945 Date Provider Department Center 08/06/2023 EDWIN PETERS [facility] LANA Cook Family History Problem Relation Age of Onset Coronary artery disease Father Hypertension Father Family Status - Relation Status Age at Father [facility] Telephoneon 07-28-2023 Telephone [id number] Brandi Hubbard cca 1945 Date Provider Department [place] 07/28/2023 [facility] Family History Problem Relation Age of Onset Coronary artery disease Father Hypertension Father Family Status - Relation Status Age at Father [facility] 37on 07-08-2023 37 *Resume lasix. Take 20mg daily x1 week then go back to every other day. *Have stress test done. *Watch your fluid intake. Try to limit to 2 liters a day. *Eat a low sodium diet. [facility] HPon 07-08-2023 HP Patient here for [facility] up TB for SOB and chest pain. She was started on isosorbide. She is scheduled for outpatient stress test next week. She denies chest pain. SOB is improving. C/o LE edema which resolves by morning. C/o fatigue. Review of Systems Cardiovascular: Positive for leg swelling. All other systems reviewed and are negative. [facility] Office Visiton 07-08-2023 Follow-up visit [id number] Brandi Hubbard cca S 1945 F Date Provider Department [place] 07/08/2023 DINORAH BETHEA LANA Rodríguez Family History Problem Relation Age of Onset Coronary artery disease Father Hypertension Father Family Status - Relation Status Age at Father Level of Service:35087 [place] OFFICE/OUTPATIENT ESTABLISHED MOD MDM 30-39 MIN Reason for Visit and Comments: Fatigue [46] Congestive Heart Failure [127] Edema [3022163355] Shortness of Breath [768661] [facility] Office Visiton 03-28-2023 Follow-up visit [id number] Brandi Hubbard cca S 1945 F Date Provider Department Center 03/28/2023 EDWIN PETERS LANA Rodríguez Family History Problem Relation Age of Onset Coronary artery disease Father Hypertension Father Family Status - Relation Status Age at Father Level of Service:56765 [place] OFFICE/OUTPATIENT ESTABLISHED LOW MDM 20-29 MIN Reason for Visit and Comments: Follow-up [167028] - 6 MONTH FOLLOW UP [facility] INSULINon 11-13-2022 Insulin 16.2 uIU/mL Normal 2.6-24.9 [facility] Comment on above: Performed By: #### I NSULIN ####[facility] [id number] [place] [address]Dr. Isi Britton CBC AUTO DIFFon 11-12-2022 BASO # 0.0 103/ul Normal 0.0-0.1 [facility] Comment on above: Performed By: #### C BC #### [facility] [address] [place] [address] Dr. Isi Britton Basophils/100 WBC (Bld) 0.6 % Normal 0.2-2.0 [facility] Comment on above: Performed By: #### C BC #### [facility] [address] [place] [address] Dr. Isi Britton EO # 0.1 103/ul Normal 0.0-0.7 [facility] Comment on above: Performed By: #### C BC #### [facility] [address] [place] [address] Dr. Isi Britton Eosinophils/100 WBC (Bld) 1.3 % Normal 0.9-7.0 [facility] Comment on above: Performed By: #### C BC #### [facility] [address] [place] [address] Dr. Isi Britton Erythrocyte distribution width (RBC) [Ratio] 13.1 % Normal 11.0-15.0 [facility] Comment on above: Performed By: #### C BC #### [facility] [address] [place] [address] Dr. Isi Britton Hematocrit (Bld) [Volume fraction] 40.1 % Normal 36.0-48.0 [facility] Comment on above: Performed By: #### C BC #### [facility] [address] [place] [address] Dr. Isi Britton Hemoglobin (Bld) [Mass/Vol] 13.5 g/dL Normal 12.0-16.0 [facility] Comment on above: Performed By: #### C BC #### [facility] [address] [place] [address] Dr. Isi Britton IG # 0.01 10e3/ul Normal 0.00-0.03 [facility] Comment on above: Performed By: #### C BC #### [facility] [address] [place] [address] Dr. Isi Birtton IG % 0.2 % Normal 0.0-0.5 [facility] Comment on above: Performed By: #### C BC #### [facility] [address] [place] [address] Dr. Isi Britton LYMPH # 1.6 103/ul Normal 1.2-3.8 [facility] Comment on above: Performed By: #### C BC #### [facility] [address] [place] [address] Dr. Isi Britton Lymphocytes/100 WBC (Bld) 24.9 % Normal 20.5-60.0 [facility] Comment on above: Performed By: #### C BC #### [facility] [address] [place] [address] Dr. Isi Britton MANUAL DIFF REQ NO Normal [facility] Comment on above: Performed By: #### C BC #### [facility] [address] [place] [address] Dr. Isi Britton MCH (RBC) [Entitic mass] 31.9 pg Normal 26.7-34.0 [facility] Comment on above: Performed By: #### C BC #### [facility] [address] [place] [address] Dr. Isi Britton MCHC (RBC) [Mass/Vol] 33.7 g/dL Normal 29.9-35.2 [facility] Comment on above: Performed By: #### C BC #### [facility] [address] [place] [address] Dr. Isi Britton MCV (RBC) [Entitic vol] 94.8 fL Normal 81.0-99.0 [facility] Comment on above: Performed By: #### C BC #### [facility] [address] [place] [address] Dr. Isi Britton MONO # 0.6 103/ul Normal 0.3-0.8 [facility] Comment on above: Performed By: #### C BC #### [facility] [address] [address] [address] Isi Britton Monocytes/100 WBC (Bld) 10.1 % Normal 1.7-12.0 [facility] Comment on above: Performed By: #### C BC #### [facility] [address] [address] [address] Isi Britton NEUT # 3.9 103/ul Normal 1.4-6.5 [facility] Comment on above: Performed By: #### C BC #### [facility] [address] [place] [address] Dr. Isi Britton Neutrophils/100 WBC (Bld) 62.9 % Normal 43.0-75.0 [facility] Comment on above: Performed By: #### C BC #### [facility] [address] [place] [address] Dr. Isi Britton Platelet mean volume (Bld) [Entitic vol] 10.5 fL Normal 9.5-13.5 [facility] Comment on above: Performed By: #### C BC #### [facility] [address] [place] [address] Dr. Isi Britton PLT 220 103/ul Normal 150-450 [facility] Comment on above: Performed By: #### C BC #### [facility] [address] [place] [address] Dr. Isi Britton RBC 4.23 106/ul Normal 4.20-5.40 [facility] Comment on above: Performed By: #### C BC #### [facility] [address] [place] [address] Dr. Isi Britton WBC 6.2 103/ul Normal 4.0-11.0 [facility] Comment on above: Performed By: #### C BC #### [facility] [address] [place] [address] Dr. Isi Britton FREE T3on 11-12-2022 FREE T3 2.21 pg/mlL Normal 2.18-3.98 [facility] Comment on above: Performed By: #### L IPID, CMP, T7, FT3, TSH #### [facility] [address] [address] [address] Isi Britton FREE T4on 11-12-2022 Free T4 [Mass/Vol] 1.04 ng/dL Normal 0.76-1.46 [facility] Comment on above: Performed By: #### I RONI, FT4 ####[facility] [id number] [place] [address]Dr. Isi Britton FREE THYROXINE INDEX T7on FTI 3.38 Normal 1.30-4.50 [facility] Comment on above: Performed By: #### L IPID, CMP, T7, FT3, TSH #### [facility] [address] [address] [address] Isi Britton T3U 36.0 % Normal 30.0-39.0 [facility] Comment on above: Performed By: #### L IPID, CMP, T7, FT3, TSH #### [facility] [address] [place] [address] Dr. Isi Britton T4 [Mass/Vol] 9.40 ug/dL Normal 4.80-13.90 [facility] Comment on above: Performed By: #### L IPID, CMP, T7, FT3, TSH #### [facility] [address] [address] [address] Isi Britton GLYCOHEMOGLOBIN A1Con 2022 ADA RECOMMENDATION SEE BELOW Normal [facility] Comment on above: Result Comment: ADA RECOMMENDED LIMIT 4.0 - 6.0 ADA THERAPEUTIC TARGET < 7.0 ACTION SUGGESTED > 7.0 Performed By: #### A 1C #### [facility] [address] [address] [address] Isi Britton Glucose [Mass/Vol] 111 mg/dL Normal [facility] Comment on above: Performed By: #### A 1C #### [facility] [address] [address] [address] Isi Britton HbA1c (Bld) [Mass fraction] 5.5 % Normal 4.5-6.2 [facility] Comment on above: Performed By: #### A 1C #### [facility] [address] [address] [address] Isi Britton IRONon 11-12-2022 Iron [Mass/Vol] 71.0 ug/dL Normal 50.0-170.0 [facility] Comment on above: Performed By: #### I RONI, FT4 #### [facility] [address] [address] [address] Isi Britton LIPID PROFILEon 11-12-2022 CHOL-HDL RATIO NORM SEE BELOW Normal [facility] Comment on above: Result Comment: 3.3 - 4.4 LOW RISK 4.4 - 7.1 AVERAGE RISK 7.1 - 11.0 MODERATE RISK >11.0 HIGH RISK Performed By: #### L IPID, CMP, T7, FT3, TSH #### [facility] [address] [place] [address] Dr. Isi Britton Cholesterol [Mass/Vol] 139 mg/dL Normal <=[address] [facility] Comment on above: Performed By: #### L IPID, CMP, T7, FT3, TSH #### [facility] [address] [address] [address] Isi Britton Cholesterol in HDL [Mass/Vol] 70 mg/dL Critically high 40-60 [facility] Comment on above: Performed By: #### L IPID, CMP, T7, FT3, TSH #### [facility] [address] [address] [address] Isi Britton Cholesterol in LDL [Mass/Vol] 49.4 mg/dL Normal [facility] Comment on above: Performed By: #### L IPID, CMP, T7, FT3, TSH #### [facility] [address] [address] [address] Isi Britton Cholesterol.total/Chol esterol in HDL [Mass ratio] 2.0 {ratio} Normal [facility] Comment on above: Performed By: #### L IPID, CMP, T7, FT3, TSH #### [facility] [address] [place] [address] Dr. Isi Britton HDL NORMAL > or = 60 mg/dl - LO W CARDIOVASCULAR RISK <40 mg/dl - HIGH CARDIOVASCULAR RISK Normal [facility] Comment on above: Performed By: #### L IPID, CMP, T7, FT3, TSH #### [facility] [address] [place] [address] Dr. Isi Britton LDL CALC NORMAL SEE BELOW Normal [facility] Comment on above: Result Comment: <100 mg/dl OPTIMAL 100 - 129 mg/dl NEAR OR ABOVE OPTIMAL 130 - 159 mg/dl BORDERLINE HIGH 160 - 189 mg/dl HIGH >190 mg/dl VERY HIGH Performed By: #### L IPID, CMP, T7, FT3, TSH #### [facility] [address] [address] [address] Isi Britton Triglyceride [Mass/Vol] 98 mg/dL Normal <=150 [facility] Comment on above: Performed By: #### L IPID, CMP, T7, FT3, TSH #### [facility] [address] [place] [address] Dr. Isi Britton VLDL CALC 19.6 mg/dL Normal [facility] Comment on above: Performed By: #### L IPID, CMP, T7, FT3, TSH #### [facility] [address] [place] [address] Dr. Isi Britton PROF 14(COMP METB)on 023 Albumin [Mass/Vol] 3.9 g/dL Normal 3.4-5.0 [facility] Comment on above: Performed By: #### L IPID, CMP, T7, FT3, TSH #### [facility] [address] [place] [address] Dr. Isi Britton Albumin/Globulin [Mass ratio] 1.2 {ratio} Normal [facility] Comment on above: Performed By: #### L IPID, CMP, T7, FT3, TSH #### [facility] [address] [place] [address] Dr. Isi Britton ALP [Catalytic activity/Vol] 99 U/L Normal 46-116 [facility] Comment on above: Performed By: #### L IPID, CMP, T7, FT3, TSH #### [facility] [address] [place] [address] Dr. Isi Britton ALT [Catalytic activity/Vol] 26 U/L Normal 14-59 [facility] Comment on above: Performed By: #### L IPID, CMP, T7, FT3, TSH #### [facility] [address] [place] [address] Dr. Isi Britton Anion gap [Moles/Vol] 13.1 mmol/L Normal Th [facility] Comment on above: Performed By: #### L IPID, CMP, T7, FT3, TSH #### [facility] [address] [place] [address] Dr. Isi Britton AST [Catalytic activity/Vol] 20 U/L Normal 15-37 [facility] Comment on above: Performed By: #### L IPID, CMP, T7, FT3, TSH #### [facility] [address] [place] [address] Dr. Isi Britton Bilirubin [Mass/Vol] 0.9 mg/dL Normal 0.2-1.0 [facility] Comment on above: Performed By: #### L IPID, CMP, T7, FT3, TSH #### [facility] [address] [place] [address] Dr. Isi Britton Calcium [Mass/Vol] 9.4 mg/dL Normal 8.5-10.1 [facility] Comment on above: Performed By: #### L IPID, CMP, T7, FT3, TSH #### [facility] [address] [place] [address] Dr. Isi Britton Chloride [Moles/Vol] 104 mmol/L Normal 98-107 [facility] Comment on above: Performed By: #### L IPID, CMP, T7, FT3, TSH #### [facility] [address] [place] [address] Dr. Isi Britton CO2 [Moles/Vol] 29.2 mmol/L Normal 21.0-32.0 [facility] Comment on above: Performed By: #### L IPID, CMP, T7, FT3, TSH #### [facility] [address] [address] [address] Isi Britton Creatinine [Mass/Vol] 1.36 mg/dL Critically high 0.55-1.02 [facility] Comment on above: Performed By: #### L IPID, CMP, T7, FT3, TSH #### [facility] [address] [address] [address] Isi Britton EGFR-AF [place]ER 46 mL/min/1.73m2 Critically low >=60 [facility] Comment on above: Performed By: #### L IPID, CMP, T7, FT3, TSH #### [facility] [address] [place] [address] Dr. Isi Britton EGFR-NON AF [place] 38 mL/min/1.73m2 Critically low >=60 [facility] Comment on above: Performed By: #### L IPID, CMP, T7, FT3, TSH #### [facility] [address] [place] [address] Dr. Isi Britton Globulin (S) [Mass/Vol] 3.3 g/dL Normal [facility] Comment on above: Performed By: #### L IPID, CMP, T7, FT3, TSH #### [facility] [address] [place] [address] Dr. Isi Britton Glucose [Mass/Vol] 107 mg/dL Critically high 74-106 [facility] Comment on above: Performed By: #### L IPID, CMP, T7, FT3, TSH #### [facility] [address] [place] [address] Dr. Isi Britton Potassium [Moles/Vol] 4.3 mmol/L Normal 3.5-5.1 [facility] Comment on above: Performed By: #### L IPID, CMP, T7, FT3, TSH #### [facility] [address] [place] [address] Dr. Isi Britton Protein [Mass/Vol] 7.2 g/dL Normal 6.4-8.2 [facility] Comment on above: Performed By: #### L IPID, CMP, T7, FT3, TSH #### [facility] [address] [address] [address] Isi Britton Sodium [Moles/Vol] 142 mmol/L Normal 136-145 [facility] Comment on above: Performed By: #### L IPID, CMP, T7, FT3, TSH #### [facility] [address] [address] [address] Isi Britton Urea nitrogen [Mass/Vol] 24.0 mg/dL Critically high 7.0-18.0 [facility] Comment on above: Performed By: #### L IPID, CMP, T7, FT3, TSH #### [facility] [address] [address] [address] Isi Britton Urea nitrogen/Creatinine [Mass ratio] 17.6 mg/mg Normal [facility] Comment on above: Performed By: #### L IPID, CMP, T7, FT3, TSH #### [facility] [address] [place] [address] Dr. Isi Britton TSHon 11-12-2022 TSH 1.802 uIU/mL Normal 0.358-3.74 0 [facility] [facility] Comment on above: Performed By: #### L IPID, CMP, T7, FT3, TSH #### [facility] [address] [place] [address] Dr. Isi Britton Covid-19 PCR ([facility]on 09-11 SARS-CoV-2 (COVID-19) RNA ERICK+probe Ql (Unsp spec) Not detected Normal NOT DETECTED [facility] Comment on above: Result Comment: This test is not yet approved or cleared by the [place] FDA. When there are no FDA-approved or cleared tests available, and other criteria are met, FDA can make tests available under an emergency access mechanism called an Emergency Use Authorization (EUA). The EUA for this test is supported by the Nurse Epidemiologist of Health and Human Service's (HHS's) declaration [...] consistent with SARS-CoV-2. Performed By: #### C [facility] ####[facility] [id number] [place], [place] [address]Pz. Isi Britton ECHOCARDIO M/2D COMPLETEon 1 09-09-2021 ECHOCARDIO M/2D COMPLETE Patient: CECE HUBBARD Exam Date: 07/10/2022 : 1945 Gender:F Ordering : DR EDWIN BLUNT M.D. Admission #: [id number] Family : DR DEMARCO NEWELL . Order #: [id number] CLICK HERE TO VIEW EXAM ECHOCARDIOGRAM REPORT [...] M.D. on 07/10/2022 at 15:37 Normal [facility] Covid-19 PCR ([facility])on 03-12 SARS-CoV-2 (COVID-19) RNA ERICK+probe Ql (Unsp spec) Not detected Normal NOT DETECTED [facility] Comment on above: Result Comment: This test is not yet approved or cleared by the [place] FDA. When there are no FDA-approved or cleared tests available, and other criteria are met, FDA can make tests available under an emergency access mechanism called an Emergency Use Authorization (EUA). The EUA for this test is supported by the Nurse Epidemiologist of Health and Human Service's (HHS's) declaration [...] SARS-CoV-2. Performed By: #### C VDTB #### [facility] [address] [place] [address] Dr. Isi Britton C REACTIVE PROTEINon 021 CRP [Mass/Vol] 5.1 mg/L Normal 0.0-7.0 [facility] Comment on above: Performed By: #### 6 1405 #### [address] CERVICAL SPINE 2 OR 3 [facility] 03-12-2021 CERVICAL SPINE 2 OR 3 S [facility] Department of Radiology [address] [place] [id number] Patient Name: CECE HUBBARD : 1945 Sex: F Age: Race: White Pt. Location: 264 Patient Status: D Ordered Date: 03/12/2021 4:00:00 PM Completed Date: 03/12/2021 04:25 PM Requesting Provider: REZA HARVEY Attending Provider: REZA HARVEY Report Copy To: Signs & Symptoms: M54.2 Cervicalgia I10 History: [place] Comments: Exam: CERVICAL SPINE 2 OR 3 [facility] CERVICAL SPINE 2 OR 3 [facility] 03/12/2021 4:25 PM CLINICAL INDICATIONS: M54.2 [...] curvature. Electronically signed: Rosendo Salvador. Transcribed by: [email or web address], User Resident: Electronically Signed by: ROSENDO SALVADOR @ 03/13/2021 08:58 AM Normal [facility] LUMBAR SPINE 2 OR 3 [facility] LUMBAR SPINE 2 OR 3 S [facility] Department of Radiology [address] [place] [phone] Patient Name: CECE HUBBARD : 1945 Sex: F Age: Race: White Pt. Location: Critical access hospital Patient Status: D Ordered Date: 03/12/2021 4:00:00 PM Completed Date: 03/12/2021 04:25 PM Requesting Provider: REZA HARVEY Attending Provider: REZA HARVEY Report Copy To: Signs & Symptoms: M54.5 Low back pain I10 History: [place] Comments: Exam: LUMBAR SPINE 2 OR 3 [facility] LUMBAR SPINE 2 OR 3 [facility] 03/12/2021 [...] levels. Electronically signed: Rosendo Salvador. Transcribed by: [email or web address], User Resident: Electronically Signed by: ROSENDO SALVADOR @ 03/13/2021 10:49 AM Normal [facility] S-I JOINTS MIN 4 [facility] 03-12 S-I JOINTS MIN 4 S [facility] Department of Radiology [address] [place] [address] Patient Name: CECE HUBBARD : 1945 Sex: F Age: Race: White Pt. Location: Critical access hospital Patient Status: D Ordered Date: 03/12/2021 4:00:00 PM Completed Date: 03/12/2021 04:25 PM Requesting Provider: REZA HARVEY Attending Provider: REZA HARVEY Report Copy To: Signs & Symptoms: M54.5 Low back pain I10 History: [place] Comments: Exam: S-I JOINTS MIN 4 [facility] S-I JOINTS MIN 4 [facility] 03/12/2021 4:25 PM CLINICAL INDICATIONS: M54.5 [...] report. Electronically signed: Brisa Jackson. Transcribed by: [email or web address], User Resident: HARRISON HUNTER Electronically Signed by: BRISA JACKSON @ 03/13/2021 10:46 AM I personally read this/these film(s) with this resident Normal [facility] SEDIMENTATION RATEon 021 SED RATE 37 mm/hr High 0-20 [facility] Comment on above: Performed By: #### 5 [id number] #### [facility] [address] Cardiovascular Lab Reporton 05-12-2020 Cardiovascular Lab Report [facility] Patient Name: Cece Hubbard [facility] MR #: [id number] Physician: Edwin Pham Department of Cornelio Blunt Medicine Service Date: 05/11/2020 Division of Birthdate: 1945 Cardiology Room #: CC Adult Cardiovascular Services [facility] [address] [facility]. [place] [address] Cardiovascular Laboratory Report INDICATION: The patient is a 75-year-old woman, who recently was evaluated in Cardiology Clinic because of a class 3 heart failure symptoms. She was evaluated by initially an echocardiography, then a transesophageal echocardiogram that showed fanu-gg-innopzrg mitral regurgitation and mild aortic valve regurgitation. [...] informed consent. She was brought to laboratory aide in a fasting state. Modified Dom's test was favorable on the left. Access in the left radial artery was obtained using micropuncture technique. A 6-Gabonese x 11 cm Hydrophilic sheath was advanced. [...] coronary artery. This was exchanged to a 6-Gabonese AR2 guiding catheter followed by a 6-Gabonese AL1 guiding catheter, which was able to engage the right coronary artery. Initial angiography was performed. A Sketchfab wire was advanced into the distal RCA. An Emerge 3.0 x 15 mm balloon was used to perform balloon dilatation at 8 atmospheres in the proximal RCA. Angiography revealed suboptimal results, this was treated using a Synergy 3.0 x 20 mm drug-eluting stent deployed at 12 atmospheres and post dilated using NC Quantum Ely 3.0 x 15 mm noncompliant balloon inflated [...] up in Cardiology Clinic. Electronically Signed by: Edwin Blunt M.D. 05/17/2020 06:01 P Edwin Blunt M.D. Date Dict: 05/11/2020/01:56 P/Edwin Blunt M.D. Date Trans: 05/12/2020 06:46 A/cale [id number] cc: Demarco Newell M.D. [address] [facility] [place] [phone] Normal [facility] BNP (B-TYPE NATRIURETIC PEPT EFE)on 04-05-2020 Natriuretic peptide B (Bld) [Mass/Vol] 26 pg/mL Normal 0-100 [facility] Comment on above: Order Comment: No: D o not add to previous draw Result Comment: Give n the appropriate clinical setting a BNP result of >100 pg/mL indicates congestive heart failure. Performed By: #### 8 5123 #### [facility] [address] [facility]. [address] CBC COMPLETE BLOOD COUNTon 0 04-05-2020 Erythrocyte distribution width (RBC) [Ratio] 13.1 % Normal 11.5-15.0 [facility] Comment on above: Order Comment: No: D o not add to previous draw Performed By: #### 5 0608 #### [facility] [address] [place] [address], [facility] Hematocrit (Bld) [Volume fraction] 42.1 % Normal 36.0-45.0 [facility] Comment on above: Order Comment: No: D o not add to previous draw Performed By: #### 5 0608 #### [facility] [address] [place] [address], [facility] Hemoglobin (Bld) [Mass/Vol] 14.3 g/dL Normal 12.0-15.0 [facility] Comment on above: Order Comment: No: D o not add to previous draw Performed By: #### 5 0608 #### [facility] [address] [facility] [address], [facility] MCH (RBC) [Entitic mass] 31.0 pg Normal 27.0-33.0 [facility] Comment on above: Order Comment: No: D o not add to previous draw Performed By: #### 5 0608 #### [facility] [address] MCHC (RBC) [Mass/Vol] 34.0 g/dL Normal 32.0-35.0 [facility] Comment on above: Order Comment: No: D o not add to previous draw Performed By: #### 5 0608 #### [facility] [address] [place] [address], [facility] MCV (RBC) [Entitic vol] 91.3 fL Normal 82.0-98.0 [facility] Comment on above: Order Comment: No: D o not add to previous draw Performed By: #### 5 0608 #### [facility] [address] Nucleated RBC/100 WBC (Bld) [Ratio] 0 % Normal 0-0 [facility] Comment on above: Order Comment: No: D o not add to previous draw Performed By: #### 5 0608 #### [facility] [address] [place] [address], [facility] PLAT CNT 249 10*3/uL Normal 150-400 [facility] Comment on above: Order Comment: No: D o not add to previous draw Performed By: #### 5 0608 #### [facility] [address] [place] [address], [facility] RBC (Bld) [#/Vol] 4.61 10*6/uL Normal 3.80-5.00 [facility] Comment on above: Order Comment: No: D o not add to previous draw Performed By: #### 5 0608 #### [facility] [address] [place] [address], [facility] WBC (Bld) [#/Vol] 6.32 10*3/uL Normal 4.00-10.60 [facility] Comment on above: Order Comment: No: D o not add to previous draw Performed By: #### 5 0608 #### [facility] [address] Erythrocyte distribution width (RBC) [Ratio] 13.0 % Normal 11.5-15.0 [facility] Comment on above: Order Comment: No: D o not add to previous draw Performed By: #### 5 0608 #### [facility] [address] Hematocrit (Bld) [Volume fraction] 40.2 % Normal 36.0-45.0 [facility] Comment on above: Order Comment: No: D o not add to previous draw Performed By: #### 5 0608 #### [facility] [address] [facility]. [address] Hemoglobin (Bld) [Mass/Vol] 13.7 g/dL Normal 12.0-15.0 [facility] Comment on above: Order Comment: No: D o not add to previous draw Performed By: #### 5 0608 #### [facility] [address] [place] [address], [facility] MCH (RBC) [Entitic mass] 31.4 pg Normal 27.0-33.0 [facility] Comment on above: Order Comment: No: D o not add to previous draw Performed By: #### 5 0608 #### [facility] [address] [place] [address], [facility] MCHC (RBC) [Mass/Vol] 34.1 g/dL Normal 32.0-35.0 [facility] Comment on above: Order Comment: No: D o not add to previous draw Performed By: #### 5 0608 #### [facility] [address] [place] [address], [facility] MCV (RBC) [Entitic vol] 92.0 fL Normal 82.0-98.0 [facility] Comment on above: Order Comment: No: D o not add to previous draw Performed By: #### 5 0608 #### [facility] 3000 [facility]. [address] Nucleated RBC/100 WBC (Bld) [Ratio] 0 % Normal 0-0 [facility] Comment on above: Order Comment: No: D o not add to previous draw Performed By: #### 5 0608 #### [facility] [address] [facility] [address], [facility] PLAT CNT 209 10*3/uL Normal 150-400 [facility] Comment on above: Order Comment: No: D o not add to previous draw Performed By: #### 5 0608 #### [facility] [address] [facility] [address], [facility] RBC (Bld) [#/Vol] 4.37 10*6/uL Normal 3.80-5.00 [facility] Comment on above: Order Comment: No: D o not add to previous draw Performed By: #### 5 0608 #### [facility] [address] [facility] [address], [facility] WBC (Bld) [#/Vol] 5.97 10*3/uL Normal 4.00-10.60 [facility] Comment on above: Order Comment: No: D o not add to previous draw Performed By: #### 5 0608 #### [facility] [address] [facility]. [address] TROPONIN-Ion 04-05-2020 Troponin I.cardiac [Mass/Vol] 0.07 ng/mL High 0.00-0.04 [facility] Comment on above: Order Comment: This order is a replacement of the rejected order with accession number [id number]. Result Comment: REFE RENCE RANGES: 0.00 - 0.04 ng/ml NORMAL 0.05 - 0.50 ng/ml INDETERMINATE > 0.50 ng/ml CONSISTENT WITH AN M.I. Performed By: #### 3 5200 #### [facility] 3000 [facility]. [address] Cardiovascular Lab Reporton 04-04-2020 Cardiovascular Lab Report [facility] Patient Name: Cece Hubbard [facility] S MR #: [id number] Department of Physician: [facility] Jerri Blunt M.D. Division of Service Date: 04/04/2020 Cardiology Birthdate: 1945 Adult Cardiovascular Room #: [facility] [address] [facility]. [place] [address] Cardiovascular Laboratory Report INDICATION: Cece Hubbard is a 75-year-old woman, who was recently evaluated in Cardiology Clinic after a recent admission to the [facility] with acute onset shortness of breath and finding on echocardiogram of possible severe mitral regurgitation. She continued to be symptomatic and was referred for further investigation of her recent onset symptoms by a transesophageal echocardiography that showed evidence of exeo-dx-ivhjxjac mitral regurgitation. She was then referred for [...] consent. She was brought to the laboratory aide in a fasting state. The right neck area was prepped and draped in the usual fashion. Using micropuncture technique and ultrasound guidance, the right internal jugular vein was accessed. A 6-Gabonese x 11 cm sheath was placed. A 6-Gabonese Mendez catheter was used for right catheterization with measurement of pressures and calculation of cardiac output using the estimated Elizabeth method. Mendez catheter was removed. Modified Dom's test was favorable on the right. Access in the right radial artery was obtained using micropuncture technique. A 6-Gabonese x 11 cm Hydrophilic sheath was advanced. Verapamil was given through the sheath and heparin was administered intravenously. Bilateral selective coronary angiography was then performed using 5-Gabonese JR5 and 5-Gabonese multipurpose catheters for engagement of the right coronary artery and a 5-Gabonese JL3.5 diagnostic catheter for engagement of the left coronary artery. Catheters were removed. Additional heparin was given as needed and therapeutic ACT confirmed during the rest of the procedure. A 6-Gabonese XB3.0 guiding catheter was advanced and used to engage the left main coronary ostium. A Sketchfab wire was advanced into the distal LAD. Balloon dilatation in the mid LAD was performed using Emerge 3.0 x 12 mm balloon inflated at 6 atmospheres. Angiography revealed suboptimal results. This was treated using a Synergy 3.0 x 16 mm drug-eluting stent deployed at 11 atmospheres and post dilated using NC Quantum Ely 3.25 x 12 mm noncompliant balloon inflated [...] 2- (more content not included)... Normal [facility] *SARS-CoV-2 COVID-19on 03-31 SARS-CoV-2 (COVID-19) RNA ERICK+probe Ql (Unsp spec) Not detected Normal Not Detected [facility] Comment on above: Order Comment: The A ptima SARS-CoV-2 assay is a nucleic acid amplification test intended for the qualitative detection of RNA from SARS-CoV-2 isolated and purified from nasopharyngeal (SIDING APPLICATOR),oropharyngeal (OP), nasal swab, sputum, and bronchoalveolar lavage (BAL) specimens from patients with signs and symptoms of infection who are suspected of COVID-19. Results are for the identification of SARS-CoV-2 RNA. The SARS-CoV-2 RNA is generally detectable during the acute phase of infection. The Aptima SARS-CoV-2 Assay on the [place] and [place] Fusion system is intended for use by laboratory personnel specifically instructed and trained in the operation of the [place] Fusion system. The Aptima SARS-CoV-2 assay is [...] information. Performed By: #### 3 1792 #### [facility] [address] [place] [address], [facility] CONSULTATIONon 03-02-2019 [place] [address] CONSULTATION PATIENT NAME: CECE HUBBARD : 1945 MED REC NO: [id number] ROOM: R254 ACCOUNT NO: [id number] ADMIT DATE: 02/24/2019 PROVIDER: Angelica Holguin MD CONSULT DATE: 03/02/2019 ATTENDING: Dr. [...] and S2 are normal. No murmurs appreciated. COMMUNICATIONS FIELD TECHNICIAN EXAMINATION: Pupils are equal and reactive. Eye [...] assist in the care of the patient. ANGELICA HOLGUIN MD [id number] Doc#: [id number] CC: Normal [facility] Homocysteineon 03-02-2019 Homocysteine 14.5 umol/L Normal 0.0-15.0 [facility] Comment on above: Performed By: #### P T #### [facility] [address] [place] [address] TSH w/out Reflexon 9 TSH Qn 3.890 uIU/mL Critically high 0.440-3.86 [facility] Comment on above: Performed By: #### P T #### [facility] [address] [place] [address] Vitamin B12 and Folateon Cobalamin (Vitamin B12) [Mass/Vol] 537 pg/mL Normal 232-1245 [facility] Comment on above: Performed By: #### P T #### [facility] [address] [place] [address] Folate 11.6 ng/mL Normal 7.3-26.1 [facility] Comment on above: Result Comment: As o f 16, the methodology has changed. Results from this methodology should not be compared with results from previous methodology. Performed By: #### P T #### [facility] [address] [place] [address] Urinalysis, reflex to cultur erik 02-28-2019 Bilirubin Ql (U) Negative Normal Negative [facility] Comment on above: Performed By: #### B MP #### [facility] [address] [place] [address] Clarity (U) Clear Normal Clear [facility] Comment on above: Performed By: #### B MP #### [facility] [address] [place] [address] Color (U) Yellow Normal Straw/[place] [facility] Comment on above: Performed By: #### B MP #### [facility] [address] [place] [address] Glucose Ql (U) Negative Normal Negative [facility] Comment on above: Performed By: #### B MP #### [facility] [address] [place] [address] Hemoglobin Ql (U) Negative Normal Negative [facility] Comment on above: Performed By: #### B MP #### [facility] [address] [place] [address] Ketones Ql (U) Negative Normal Negative [facility] Comment on above: Performed By: #### B MP #### [facility] [address] [place] [address] Leukocyte esterase Test strip Ql (U) Negative Normal Negative [facility] Comment on above: Performed By: #### B MP #### [facility] [address] [place] [address] Nitrite Ql (U) Negative Normal Negative [facility] Comment on above: Performed By: #### B MP #### [facility] [address] [place] [address] pH (U) 7.0 [pH] Normal 5.0-9.0 [facility] Comment on above: Performed By: #### B MP #### [facility] [address] [place] [address] Protein Ql (U) Negative Normal Negative [facility] Comment on above: Performed By: #### B MP #### [facility] [address] [place] [address] Specific gravity (U) [Rel density] 1.007 Normal 1.005-1.03 [facility] Comment on above: Performed By: #### B MP #### [facility] [address] [place] [address] Urine Reflexed to Culture Not Indicated Normal [facility] Comment on above: Performed By: #### B MP #### [facility] [address] [place] [address] Urobilinogen Qn (U) 0.2 {Tyerl'U}/dL Normal < 2.0 [facility] Comment on above: Performed By: #### B MP #### [facility] [address] [place] [address] CBC With Platelet No Differe ntialon 02-25-2019 Erythrocyte distribution width (RBC) [Ratio] 13.5 % Normal 11.5-14.5 [facility] Comment on above: Performed By: #### B MP #### [facility] [address] [place] [address] Hematocrit (Bld) [Volume fraction] 33.3 % Low 37.0-47.0 [facility] Comment on above: Performed By: #### B MP #### [facility] [address] [place] [address] Hemoglobin (Bld) [Mass/Vol] 11.7 g/dL Low 12.0-16.0 [facility] Comment on above: Performed By: #### B MP #### [facility] [address] [place] [address] MCH (RBC) [Entitic mass] 33.0 pg Critically high 27.0-31.3 [facility] Comment on above: Performed By: #### B MP #### [facility] [address] [place] [address] MCHC (RBC) [Mass/Vol] 35.1 % Normal 33.0-37.0 [facility] Comment on above: Performed By: #### B MP #### [facility] [address] [place] [address] MCV (RBC) [Entitic vol] 94.1 fL Normal 82.0-100.0 [facility] Comment on above: Performed By: #### B MP #### [facility] [address] [place] [address] Platelets (Bld) [#/Vol] 180 10*3/uL Normal 130-400 [facility] Comment on above: Performed By: #### B MP #### [facility] [address] [place] [address] RBC (Bld) [#/Vol] 3.54 10*6/uL Low 4.20-5.40 [facility] Comment on above: Performed By: #### B MP #### [facility] [address] [place] [address] WBC (Bld) [#/Vol] 12.1 10*3/uL Critically high 4.8-10.8 [facility] Comment on above: Performed By: #### B MP #### [facility] [address] [place] [address] Basic Metabolic Panel Reflex Mgon 02-24-2019 Anion gap [Moles/Vol] 13 mmol/L Normal 9-15 [facility] Comment on above: Performed By: #### B MP #### [facility] [address] [place] [address] Calcium [Mass/Vol] 8.8 mg/dL Normal 8.5-9.9 [facility] Comment on above: Performed By: #### B MP #### [facility] [address] [place] [address] Chloride [Moles/Vol] 100 mmol/L Normal 95-107 [facility] Comment on above: Performed By: #### B MP #### [facility] [address] [place] [address] CO2 [Moles/Vol] 24 mmol/L Normal 20-31 [facility] Comment on above: Performed By: #### B MP #### [facility] [address] [place] [address] Creatinine [Mass/Vol] 0.96 mg/dL Critically high 0.50-0.90 [facility] Comment on above: Performed By: #### B MP #### [facility] [address] [place] [address] GFR/1.73 sq M predicted among blacks MDRD (S/P/Bld) [Vol rate/Area] mL/min/{1.73_m2} Normal >60 [facility] Comment on above: Result Comment: >60 mL/min/1.73m2 EGFR, calc. for ages 18 and older using the MDRD formula (not corrected for weight), is valid for stable renal function. Performed By: #### B MP #### [facility] [address] [place] [address] GFR/1.73 sq M.predicted MDRD (S/P/Bld) [Vol rate/Area] 57.0 mL/min/{1.73_m2} Low >60 [facility] Comment on above: Result Comment: >60 mL/min/1.73m2 EGFR, calc. for ages 18 and older using the MDRD formula (not corrected for weight), is valid for stable renal function. Performed By: #### B MP #### [facility] [address] [place] [address] Glucose [Mass/Vol] 146 mg/dL Critically high 70-99 [facility] Comment on above: Performed By: #### B MP #### [facility] [address] [place] [address] Potassium reflex Mg 5.4 mEq/L Critically high 3.4-4.9 [facility] Comment on above: Performed By: #### B MP #### [facility] [address] [place] [address] Sodium [Moles/Vol] 137 mmol/L Normal 135-144 [facility] Comment on above: Performed By: #### B MP #### [facility] [address] [place] [address] Urea nitrogen [Mass/Vol] 18 mg/dL Normal 8-23 [facility] Comment on above: Performed By: #### B MP #### [facility] [address] [place] [address] CBC With Platelet and Differ entialon 02-24-2019 Basophils (Bld) [#/Vol] 0.0 10*3/uL Normal 0.0-0.2 [facility] Comment on above: Performed By: #### C BCWD #### [facility] [address] [place] [address] Basophils/100 WBC (Bld) 0.1 % Normal [facility] Comment on above: Performed By: #### C BCWD #### [facility] [address] [place] [address] Eosinophils (Bld) [#/Vol] 0.0 10*3/uL Normal 0.0-0.7 [facility] Comment on above: Performed By: #### C BCWD #### [facility] [address] [place] [address] Eosinophils/100 WBC (Bld) 0.0 % Normal [facility] Comment on above: Performed By: #### C BCWD #### [facility] [address] [place] [address] Erythrocyte distribution width (RBC) [Ratio] 13.4 % Normal 11.5-14.5 [facility] Comment on above: Performed By: #### C BCWD #### [facility] [address] [place] [address] Hematocrit (Bld) [Volume fraction] 34.6 % Low 37.0-47.0 [facility] Comment on above: Performed By: #### C BCWD #### [facility] [address] [place] [address] Hemoglobin (Bld) [Mass/Vol] 12.0 g/dL Normal 12.0-16.0 [facility] Comment on above: Performed By: #### C BCWD #### [facility] [address] [place] [address] Lymphocytes (Bld) [#/Vol] 0.9 10*3/uL Low 1.0-4.8 [facility] Comment on above: Performed By: #### C BCWD #### [facility] [address] [place] [address] Lymphocytes/100 WBC (Bld) 6.5 % Normal [facility] Comment on above: Performed By: #### C BCWD #### [facility] [address] [place] [address] MCH (RBC) [Entitic mass] 32.3 pg Critically high 27.0-31.3 [facility] Comment on above: Performed By: #### C BCWD #### [facility] [address] [place] [address] MCHC (RBC) [Mass/Vol] 34.7 % Normal 33.0-37.0 [facility] Comment on above: Performed By: #### C BCWD #### [facility] [address] [place] [address] MCV (RBC) [Entitic vol] 93.2 fL Normal 82.0-100.0 [facility] Comment on above: Performed By: #### C BCWD #### [facility] [address] [place] [address] Monocytes (Bld) [#/Vol] 1.4 10*3/uL Critically high 0.2-0.8 [facility] Comment on above: Performed By: #### C BCWD #### [facility] [address] [place] [address] Monocytes/100 WBC (Bld) 10.2 % Normal [facility] Comment on above: Performed By: #### C BCWD #### [facility] [address] [place] [address] Neutrophils (Bld) [#/Vol] 11.3 10*3/uL Critically high 1.4-6.5 [facility] Comment on above: Performed By: #### C BCWD #### [facility] [address] [place] [address] Neutrophils/100 WBC (Bld) 83.2 % Normal [facility] Comment on above: Performed By: #### C BCWD #### [facility] [address] [place] [address] Platelets (Bld) [#/Vol] 208 10*3/uL Normal 130-400 [facility] Comment on above: Performed By: #### C BCWD #### [facility] [address] [place] [address] RBC (Bld) [#/Vol] 3.71 10*6/uL Low 4.20-5.40 [facility] Comment on above: Performed By: #### C BCWD #### [facility] [address] [place] [address] WBC (Bld) [#/Vol] 13.7 10*3/uL Critically high 4.8-10.8 [facility] Comment on above: Performed By: #### C BCWD #### [facility] [address] [place] [address] Culture, Urineon 02-24-2019 Culture, Urine OR DERED BY: CHRISTIE REED SOURCE: Urine Clean Catch COLLECTED: 02/24/19 17:31 ANTIBIOTICS AT ELISEO.: RECEIVED : 02/24/19 17:31 Culture, Urine FINAL 02/26/19 08:22 No growth 24 hours Normal [facility] Comment on above: Performed By: #### B MP #### [facility] [address] [place] [address] POCT Glucoseon 02-24-2019 Glucose [Mass/Vol] 133 mg/dL Critically high 60-115 [facility] Comment on above: Performed By: #### B MP #### [facility] [address] [place] [address] POC Performed on ACCU-CHEK Normal [facility] Comment on above: Performed By: #### B MP #### [facility] [address] [place] [address] Urinalysis, reflex to cultur erik 02-24-2019 Bilirubin Ql (U) Negative Normal Negative [facility] Comment on above: Performed By: #### B MP #### [facility] [address] [place] [address] Clarity (U) Clear Normal Clear [facility] Comment on above: Performed By: #### B MP #### [facility] [address] [place] [address] Color (U) Yellow Normal Straw/[place] [facility] Comment on above: Performed By: #### B MP #### [facility] [address] [place] [address] Glucose Ql (U) Negative Normal Negative [facility] Comment on above: Performed By: #### B MP #### [facility] [address] [place] [address] Hemoglobin Ql (U) SMALL Abnormal Negative [facility] Comment on above: Performed By: #### B MP #### [facility] [address] [place] [address] Ketones Ql (U) Negative Normal Negative [facility] Comment on above: Performed By: #### B MP #### [facility] [address] [place] [address] Leukocyte esterase Test strip Ql (U) TRACE Abnormal Negative [facility] Comment on above: Performed By: #### B MP #### [facility] [address] [place] [address] Nitrite Ql (U) Negative Normal Negative [facility] Comment on above: Performed By: #### B MP #### [facility] [address] [place] [address] pH (U) 6.0 [pH] Normal 5.0-9.0 [facility] Comment on above: Performed By: #### B MP #### [facility] [address] [place] [address] Protein Ql (U) Negative Normal Negative [facility] Comment on above: Performed By: #### B MP #### [facility] [address] [place] [address] Specific gravity (U) [Rel density] 1.010 Normal 1.005-1.03 [facility] Comment on above: Performed By: #### B MP #### [facility] [address] [place] [address] Urine Reflexed to Culture YES Normal [facility] Comment on above: Performed By: #### B MP #### [facility] [address] [place] [address] Urobilinogen Qn (U) 0.2 {Tyrel'U}/dL Normal < 2.0 [facility] Comment on above: Performed By: #### B MP #### [facility] [address] [place] [address] Urine Microscopicon 02-25-20 19 Bacteria LM.HPF (Urine sed) [#/Area] Negative Normal [facility] Comment on above: Performed By: #### B MP #### [facility] [address] [place] [address] RBC (U) [#/Vol] 0-2 Normal 0-5 [facility] Comment on above: Performed By: #### B MP #### [facility] [address] [place] [address] Urine Epithelial Cells Auto 3-5 Normal 0-5 [facility] Comment on above: Performed By: #### B MP #### [facility] [address] [place] [address] Urine Hyaline Casts Auto 0-1 Normal 0-5 [facility] Comment on above: Performed By: #### B MP #### [facility] [address] [place] [address] Urine WBC Auto 6-10 Abnormal 0-5 [facility] Comment on above: Performed By: #### B MP #### [facility] [address] [place] [address] XR LUMBAR SPINE (2-3 VIEWS)o n 02-24-2019 [...] Ramón Bonds MD 02/24/19 Final result Normal [facility] Basic Metabolic Panel Reflex Mgon 02-23-2019 Anion gap [Moles/Vol] 14 mmol/L Normal 9-15 [facility] Comment on above: Performed By: #### B MPX #### [facility] [address] [place] [address] Calcium [Mass/Vol] 9.1 mg/dL Normal 8.5-9.9 [facility] Comment on above: Performed By: #### B MPX #### [facility] [address] [place] [address] Chloride [Moles/Vol] 106 mmol/L Normal 95-107 [facility] Comment on above: Performed By: #### B MPX #### [facility] [address] [place] [address] CO2 [Moles/Vol] 20 mmol/L Normal 20-31 [facility] Comment on above: Performed By: #### B MPX #### [facility] [address] [place] [address] Creatinine [Mass/Vol] 0.96 mg/dL Critically high 0.50-0.90 [facility] Comment on above: Performed By: #### B MPX #### [facility] [address] [place] [address] GFR/1.73 sq M predicted among blacks MDRD (S/P/Bld) [Vol rate/Area] mL/min/{1.73_m2} Normal >60 [facility] Comment on above: Result Comment: >60 mL/min/1.73m2 EGFR, calc. for ages 18 and older using the MDRD formula (not corrected for weight), is valid for stable renal function. Performed By: #### B MPX #### [facility] [address] [place] [address] GFR/1.73 sq M.predicted MDRD (S/P/Bld) [Vol rate/Area] 57.0 mL/min/{1.73_m2} Low >60 [facility] Comment on above: Result Comment: >60 mL/min/1.73m2 EGFR, calc. for ages 18 and older using the MDRD formula (not corrected for weight), is valid for stable renal function. Performed By: #### B MPX #### [facility] [address] [place] [address] Glucose [Mass/Vol] 139 mg/dL Critically high 70-99 [facility] Comment on above: Performed By: #### B MPX #### [facility] [address] [place] [address] Potassium reflex Mg 4.6 mEq/L Normal 3.4-4.9 [facility] Comment on above: Performed By: #### B MPX #### [facility] [address] [place] [address] Sodium [Moles/Vol] 140 mmol/L Normal 135-144 [facility] Comment on above: Performed By: #### B MPX #### [facility] [address] [place] [address] Urea nitrogen [Mass/Vol] 20 mg/dL Normal 8-23 [facility] Comment on above: Performed By: #### B MPX #### [facility] [address] [place] [address] CBC With Platelet No Differe ntialon 02-23-2019 Erythrocyte distribution width (RBC) [Ratio] 13.4 % Normal 11.5-14.5 [facility] Comment on above: Performed By: #### C BCND #### [facility] [address] [place] [address] Hematocrit (Bld) [Volume fraction] 38.8 % Normal 37.0-47.0 [facility] Comment on above: Performed By: #### C BCND #### [facility] [address] [place] [address] Hemoglobin (Bld) [Mass/Vol] 13.6 g/dL Normal 12.0-16.0 [facility] Comment on above: Performed By: #### C BCND #### [facility] [address] [place] [address] MCH (RBC) [Entitic mass] 32.2 pg Critically high 27.0-31.3 [facility] Comment on above: Performed By: #### C BCND #### [facility] [address] [place] [address] MCHC (RBC) [Mass/Vol] 35.1 % Normal 33.0-37.0 [facility] Comment on above: Performed By: #### C BCND #### [facility] [address] [place] [address] MCV (RBC) [Entitic vol] 91.6 fL Normal 82.0-100.0 [facility] Comment on above: Performed By: #### C BCND #### [facility] [address] [place] [address] Platelets (Bld) [#/Vol] 212 10*3/uL Normal 130-400 [facility] Comment on above: Performed By: #### C BCND #### [facility] [address] [place] [address] RBC (Bld) [#/Vol] 4.24 10*6/uL Normal 4.20-5.40 [facility] Comment on above: Performed By: #### C BCND #### [facility] [address] [place] [address] WBC (Bld) [#/Vol] 8.3 10*3/uL Normal 4.8-10.8 [facility] Comment on above: Performed By: #### C BCND #### [facility] [address] [place] [address] FLUORO FOR SURGICAL PROCEDUR ESon 02-23-2019 FLUORO [...] Nona Yates MD 02/23/19 Final result Normal [facility] Surgical Specimenon 02-24-20 Surgical Specimen [facility] [address] [place] [id number] FINAL SURGICAL PATHOLOGY REPORT Patient Name: CECE HUBBARD Accession No: [id number] Age Sex: 1945 Location: [place] [address] Account No: [id number] Collected: 02/23/2019 Med Rec No: [id number] Received: 02/24/2019 Attend Phys: JOEL RAMIREZ Completed: 02/26/2019 Perform Phys: JOEL RAMIREZ FINAL DIAGNOSIS: 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 ALIFA/ALIFA CLINICAL INFORMATION: Disc herniation, degenerative disease, radiculopathy, spondylolisthesis, facet arthropathy. SPECIMEN: Disc GROSS DESCRIPTION: The specimen received in formalin in a container labeled with the patient's name and designated as spine consists of multiple bony and soft tissue fragments measuring in aggregate 3.5 x 3.0 x 0.5 cm. Sections front office representative are submitted in three cassettes labeled A1 through A3 after a brief decalcification. ALIFA/SCDAN CPT: 52350 X1 71227 X1 CHIDI LUNA M.D. 02/26/2019 Electronically signed out by Page 1 of 1 [facility] Comment on above: Performed By: #### B MP #### [facility] [address] [place] [address] Basic Metabolic Panelon 02-08 Anion gap [Moles/Vol] 13 mmol/L Normal 9-15 [facility] Comment on above: Performed By: #### B MP #### [facility] [address] [place] [address] Calcium [Mass/Vol] 9.7 mg/dL Normal 8.5-9.9 [facility] Comment on above: Performed By: #### B MP #### [facility] [address] [place] [address] Chloride [Moles/Vol] 105 mmol/L Normal 95-107 [facility] Comment on above: Performed By: #### B MP #### [facility] [address] [place] [address] CO2 [Moles/Vol] 24 mmol/L Normal 20-31 [facility] Comment on above: Performed By: #### B MP #### [facility] [address] [place] [address] Creatinine [Mass/Vol] 1.00 mg/dL Critically high 0.50-0.90 [facility] Comment on above: Performed By: #### B MP #### [facility] [address] [place] [address] GFR/1.73 sq M predicted among blacks MDRD (S/P/Bld) [Vol rate/Area] mL/min/{1.73_m2} Normal >60 [facility] Comment on above: Result Comment: >60 mL/min/1.73m2 EGFR, calc. for ages 18 and older using the MDRD formula (not corrected for weight), is valid for stable renal function. Performed By: #### B MP #### [facility] [address] [place] [address] GFR/1.73 sq M.predicted MDRD (S/P/Bld) [Vol rate/Area] 54.3 mL/min/{1.73_m2} Low >60 [facility] Comment on above: Result Comment: >60 mL/min/1.73m2 EGFR, calc. for ages 18 and older using the MDRD formula (not corrected for weight), is valid for stable renal function. Performed By: #### B MP #### [facility] [address] [place] [address] Glucose [Mass/Vol] 93 mg/dL Normal 70-99 [facility] Comment on above: Performed By: #### B MP #### [facility] [address] [place] [address] Potassium [Moles/Vol] 4.1 mmol/L Normal 3.4-4.9 [facility] Comment on above: Performed By: #### B MP #### [facility] [address] [place] [address] Sodium [Moles/Vol] 142 mmol/L Normal 135-144 [facility] Comment on above: Performed By: #### B MP #### [facility] [address] [place] [address] Urea nitrogen [Mass/Vol] 20 mg/dL Normal 8-23 [facility] Comment on above: Performed By: #### B MP #### [facility] [address] [place] [address] CBC With Platelet No Differe ntialon 02-22-2019 Erythrocyte distribution width (RBC) [Ratio] 13.2 % Normal 11.5-14.5 [facility] Comment on above: Performed By: #### C BCND #### [facility] [address] [place] [address] Hematocrit (Bld) [Volume fraction] 39.9 % Normal 37.0-47.0 [facility] Comment on above: Performed By: #### C BCND #### [facility] [address] [place] [address] Hemoglobin (Bld) [Mass/Vol] 14.1 g/dL Normal 12.0-16.0 [facility] Comment on above: Performed By: #### C BCND #### [facility] [address] [place] [address] MCH (RBC) [Entitic mass] 32.5 pg Critically high 27.0-31.3 [facility] Comment on above: Performed By: #### C BCND #### [facility] [address] [place] [address] MCHC (RBC) [Mass/Vol] 35.3 % Normal 33.0-37.0 [facility] Comment on above: Performed By: #### C BCND #### [facility] [address] [place] [address] MCV (RBC) [Entitic vol] 92.2 fL Normal 82.0-100.0 [facility] Comment on above: Performed By: #### C BCND #### [facility] [address] [place] [address] Platelets (Bld) [#/Vol] 206 10*3/uL Normal 130-400 [facility] Comment on above: Performed By: #### C BCND #### [facility] [address] [place] [address] RBC (Bld) [#/Vol] 4.33 10*6/uL Normal 4.20-5.40 [facility] Comment on above: Performed By: #### C BCND #### [facility] [address] [place] [address] WBC (Bld) [#/Vol] 5.9 10*3/uL Normal 4.8-10.8 [facility] Comment on above: Performed By: #### C BCND #### [facility] [address] [facility] [address] Partial Thromboplastin Timeo n 02-22-2019 aPTT Coag (Bld) [Time] 36.9 s Critically high 24.4-36. 8 [facility] Comment on above: Result Comment: Effe ctive 02/18/2019: Please note methodology and/or reference ranges have changed. Performed By: #### P TT #### [facility] [address] [place] [address] Prothrombin Timeon 9 INR Coag (PPP) [Relative time] 0.9 {INR} Normal [facility] Comment on above: Result Comment: Warf esther Therapy INR Therapeutic: 2.0-3.0 With Mechanical Valve: >2.5 Low-intensity Therapeutic Range: 1.5-2.0 Mod-intensity Therapeutic Range: 2.0-3.0 High-intensity Therapeutic Range: 2.5-3.5 HIgh-intensity Therapeutic Range: 3.0-4.0 Common Critical/Alarm Value: 5.0 Common Upper Limit Reported: 10.0 Effective 02/18/2019: Please note methodology and/or reference ranges have changed. Performed By: #### P T #### [facility] [address] [place] [address] PT Coag (PPP) [Time] 12.6 s Normal 12.3-14.9 [facility] Comment on above: Result Comment: Effjoel ctive 02/18/19 Please note methodology and/or reference ranges have changed. Performed By: #### P T #### [facility] [address] [place] [address] Type and Screen Capture 3 sc rn cellon 02-22-2019 Type and Screen Capture 3 scrn cell PATIENT: STEVIE Wilson LOC: [facility] BILL# : [id number] : 1945 SEX: F ORDERED BY: RISSA Hale ORDERED : 02/22/2019 07:32 COLLECTED: 02/22/2019 09:40 ORDER : [id number] RECEIVED : 02/22/2019 09:40 Confirmation type needs to be drawn. TEST NAME RESULT UNITS RANGES ABN FL ST ABORH Capture O NEG F Antibody 3 Cell Scrn Captu NEG F Normal [facility] Comment on above: Performed By: #### T S3C #### [facility] [address] [place] [id number] [phone] XR SPINE ENTIRE (2-3 VIEWS)o n 02-22-2019 [...] Hope Rapp MD 02/23/19 Final result Normal [facility] No Panel Information [facility] Vital Signs Date Time Vital Sign Value Performing Clinician Facility 10-04-2024 15:21-0500 Body height 160 cm Víctor Wills MD Work Phone: [facility] 10-04-2024 15:21-0500 Body mass index (BMI) [Ratio] 30.68 kg/m2 Víctor Wills MD Work Phone: [facility] 10-04-2024 15:21-0500 Body weight 78.56 kg Víctor Wills MD Work Phone: [facility] 10-04-2024 15:21-0500 Diastolic blood pressure 60 mm[Hg] Víctor Wills MD Work Phone: [facility] 10-04-2024 15:21-0500 Heart rate 56 /min Víctor Wills MD Work Phone: [facility] 10-04-2024 15:21-0500 Systolic blood pressure 106 mm[Hg] Víctor Wills MD Work Phone: [facility] 08-29-2024 11:11-0500 Diastolic blood pressure 78 mm[Hg] Demarco Newell MD Work Phone: [facility] 08-29-2024 11:11-0500 Heart rate 66 /min Demarco Newell MD Work Phone: [facility] 08-29-2024 11:11-0500 Respiratory rate 16 /min Demarco Newell MD Work Phone: [facility] 08-29-2024 11:11-0500 SaO2% (BldA) [Mass fraction] 96 % Demarco Newell MD Work Phone: [facility] 08-29-2024 11:11-0500 Systolic blood pressure 128 mm[Hg] Demarco Newell MD Work Phone: [facility] 08-29-2024 07:41-0500 Body temperature 98 [degF] Demarco Newell MD Work Phone: [facility] 08-29-2024 06:00-0500 Body weight 76.6 kg Demarco Newell MD Work Phone: [facility] 08-28-2024 20:00-0500 Body height 160.02 cm Demarco Newell MD Work Phone: [facility] 08-28-2024 18:23-0500 Diastolic blood pressure 68 mm[Hg] Demarco Newell MD Work Phone: [facility] 08-28-2024 18:23-0500 Heart rate 61 /min Demarco Newell MD Work Phone: [facility] 08-28-2024 18:23-0500 Respiratory rate 18 /min Demarco Newell MD Work Phone: [facility] 08-28-2024 18:23-0500 Systolic blood pressure 156 mm[Hg] Demarco Newell MD Work Phone: [facility] 08-28-2024 14:42-0500 SaO2% (BldA) [Mass fraction] 98 % Demarco Newell MD Work Phone: [facility] 08-28-2024 11:49-0500 Body height 163.83 cm Demarco Newell MD Work Phone: [facility] 08-28-2024 11:49-0500 Body temperature 97.9 [degF] Demarco Newell MD Work Phone: [facility] 08-28-2024 11:49-0500 Body weight 79 kg Demarco Newell MD Work Phone: [facility] 07-16-2024 14:47-0500 Body height 160 cm Víctor Wills MD Work Phone: [facility] 07-16-2024 14:47-0500 Body mass index (BMI) [Ratio] 31 kg/m2 Víctor Wills MD Work Phone: [facility] 07-16-2024 14:47-0500 Body weight 79.38 kg Víctor Wills MD Work Phone: [facility] 07-16-2024 14:47-0500 Diastolic blood pressure 70 mm[Hg] Víctor Wills MD Work Phone: [facility] 07-16-2024 14:47-0500 Heart rate 66 /min Víctor Wills MD Work Phone: [facility] 07-16-2024 14:47-0500 Systolic blood pressure 132 mm[Hg] Víctor Wills MD Work Phone: [facility] 06-09-2024 15:23-0400 Body mass index (BMI) [Ratio] 30.65 kg/m2 Disha Cheung MD Work Phone: [facility] 06-09-2024 15:23-0400 Body weight 78.47 kg Disha Cheung MD Work Phone: [facility] 04-21-2024 13:58-0400 Body mass index (BMI) [Ratio] 31.53 kg/m2 Stacy Henderson MD Work Phone: [facility] 04-21-2024 13:58-0400 Body weight 80.74 kg Stacy Henderson MD Work Phone: [facility] 04-21-2024 13:58-0400 Diastolic blood pressure 80 mm[Hg] Stacy Henderson MD Work Phone: [facility] 04-21-2024 13:58-0400 Systolic blood pressure 130 mm[Hg] Stacy Henderson MD Work Phone: [facility] 04-07-2024 14:13-0400 Body height 160 cm Disha Cheung MD Work Phone: [facility] 04-07-2024 14:13-0400 Body mass index (BMI) [Ratio] 31.18 kg/m2 Disha Cheung MD Work Phone: [facility] 04-07-2024 14:13-0400 Body weight 79.83 kg Disha Cheung MD Work Phone: [facility] 01-20-2024 12:04-0400 Body height 161.29 cm MD Demarco Newell Work Phone: [facility] 01-20-2024 12:04-0400 Body temperature 97.6 [degF] MD Demarco Newell Work Phone: [facility] 01-20-2024 12:04-0400 Body weight 79.15 kg MD Demarco Newell Work Phone: [facility] 01-20-2024 12:04-0400 Diastolic blood pressure 76 mm[Hg] MD Demarco Newell Work Phone: [facility] 01-20-2024 12:04-0400 Heart rate 66 /min MD Demarco Newell Work Phone: [facility] 01-20-2024 12:04-0400 Respiratory rate 16 /min MD Demarco Newell Work Phone: [facility] 01-20-2024 12:04-0400 SaO2% (BldA) [Mass fraction] 97 % MD Demarco Newell Work Phone: [facility] 01-20-2024 12:04-0400 Systolic blood pressure 164 mm[Hg] MD Demarco Newell Work Phone: [facility] 01-12-2024 15:35-0400 Diastolic blood pressure 72 mm[Hg] Víctor Wills MD Work Phone: [facility] 01-12-2024 15:35-0400 Systolic blood pressure 118 mm[Hg] Víctor Wills MD Work Phone: [facility] 01-12-2024 15:34-0400 Body height 161.3 cm Víctor Wills MD Work Phone: [facility] 01-12-2024 15:34-0400 Body mass index (BMI) [Ratio] 30.34 kg/m2 Víctor Wills MD Work Phone: [facility] 01-12-2024 15:34-0400 Body weight 78.93 kg Víctor Wills MD Work Phone: [facility] 01-12-2024 15:34-0400 Heart rate 65 /min Víctor Wills MD Work Phone: [facility] 12-23-2023 10:13-0400 Body mass index (BMI) [Ratio] 30.21 kg/m2 Vasyl Covarrubias MD Work Phone: [facility] 12-23-2023 10:13-0400 Body weight 79.83 kg Vasyl Covarrubias MD Work Phone: [facility] 12-23-2023 10:13-0400 Diastolic blood pressure 74 mm[Hg] Vasyl Covarrubias MD Work Phone: [facility] 12-23-2023 10:13-0400 Heart rate 67 /min Vasyl Covarrubias MD Work Phone: [facility] 12-23-2023 10:13-0400 Respiratory rate 16 /min Vasyl Covarrubias MD Work Phone: [facility] 12-23-2023 10:13-0400 SaO2% (BldA) [Mass fraction] 96 % Vasyl Covarrubias MD Work Phone: [facility] 12-23-2023 10:13-0400 Systolic blood pressure 126 mm[Hg] Vasyl Covarrubias MD Work Phone: [facility] 11-09-2023 23:00-0400 Blood Pressure Location [facility] 11-09-2023 23:00-0400 Heart rate 101 /min [facility] 11-09-2023 23:00-0400 Mean blood pressure 89 mm[Hg] [facility] 11-09-2023 23:00-0400 Respiratory rate 12 /min [facility] 11-09-2023 23:00-0400 Systolic blood pressure 128 mm[Hg] [facility] 11-09-2023 22:00-0400 SaO2% (BldA) [Mass fraction] 95 % [facility] 11-09-2023 21:54-0400 Diastolic blood pressure 69 mm[Hg] [facility] 11-09-2023 21:54-0400 Heart rate 99 /min [facility] 11-09-2023 21:54-0400 Mean blood pressure 95 mm[Hg] [facility] 11-09-2023 21:54-0400 Respiratory rate 20 /min [facility] 11-09-2023 21:54-0400 SaO2% (BldA) [Mass fraction] 93 % [facility] 11-09-2023 21:54-0400 Systolic blood pressure 147 mm[Hg] [facility] 11-09-2023 20:51-0400 Body temperature 99.5 [degF] [facility] 11-09-2023 20:51-0400 Diastolic blood pressure 65 mm[Hg] [facility] 11-09-2023 20:51-0400 Heart rate 92 /min [facility] 11-09-2023 20:51-0400 Respiratory rate 18 /min [facility] 11-09-2023 20:51-0400 Systolic blood pressure 155 mm[Hg] [facility] Encounters Encounter Date Encounter Type Care Provider Facility Start: 10-04-2024 End: 10-04-2024 Office outpatient visit 25 minutes Víctor Wills MD Work Phone: [facility] Comment on above: Coronary artery dise ase, unspecified vessel or lesion type, unspecified whether angina present, unspecified whether stillaguamish or transplanted heart (Primary Dx); History of PTCA; Paroxysmal atrial fibrillation (Multi); Mixed hyperlipidemia; Stage 3a chronic kidney disease (Multi); Diastolic dysfunction; High risk medication use; Pleural effusion; BMI 30.0-30.9,adult; Former smoker Start: 10-04-2024 End: 10-04-2024 ambulatory VÍCTOR De La O [facility] Ambulatory Start: 09-15-2024 End: 09-15-2024 Subsequent hospital visit by physician Lauren Dorantesa Nm Admin Room 1 [facility] Comment on above: Coronary artery dise ase, unspecified vessel or lesion type, unspecified whether angina present, unspecified whether stillaguamish or transplanted heart; Hyperlipidemia, unspecified hyperlipidemia type Start: 09-15-2024 End: 09-15-2024 ambulatory [facility] Start: 08-29-2024 Non-patient / Non-visit Stefani Newell MD Work Phone: [facility] Pulmonary Work Phone: Start: 08-28-2024 End: 08-29-2024 Evaluation and management of inpatient Demarco Newell MD Work Phone: [facility] [place] [facility] Work Phone: Start: 08-12-2024 End: 08-12-2024 Bamboo flowsmel Cheung MD Work Phone: [facility] Start: 08-12-2024 End: 08-12-2024 Bamboo flowsmel Cheung MD Work Phone: [facility] Start: 08-12-2024 End: 08-12-2024 ambulatory DISHA CHEUNG Not Available Start: 07-29-2024 End: 07-29-2024 Patient encounter procedure Demarco Newell MD Work Phone: [facility] Work Phone: Start: 07-29-2024 End: 07-29-2024 ambulatory Referral Self Facility:[facility] Start: 07-16-2024 End: 07-16-2024 ambulatory [facility] Ambulatory Start: 07-16-2024 End: 07-16-2024 Office outpatient visit 25 minutes Víctor Wills MD Work Phone: [facility] Comment on above: Obesity, Class I, BM I 30-34.9 (Primary Dx); Coronary artery disease, unspecified vessel or lesion type, unspecified whether angina present, unspecified whether stillaguamish or transplanted heart; Diastolic dysfunction; Mitral valve insufficiency, unspecified etiology; Aortic valve insufficiency, etiology of cardiac valve disease unspecified; Paroxysmal atrial fibrillation (Multi); History of PTCA; Mixed hyperlipidemia; Stage 3 chronic kidney disease, unspecified whether stage 3a or 3b CKD (Multi); Former smoker Start: 06-09-2024 End: 06-09-2024 Office outpatient visit 15 minutes Disha Cheung MD Work Phone: [facility] Comment on above: Flexural atopic derm atitis (Primary Dx) Start: 06-09-2024 End: 06-09-2024 ambulatory DISHA CHEUNG Not Available Start: 06-09-2024 End: 06-09-2024 Bamboo bala Cheung MD Work Phone: [facility] Start: 06-09-2024 End: 06-09-2024 Annia Cheung MD Work Phone: [facility] Start: 04-21-2024 End: 04-21-2024 Patient encounter procedure Stacy Henderson MD Work Phone: 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 Comment on above: Flexural atopic derm atitis (Primary Dx); Chronic rhinitis Start: 04-07-2024 End: 04-07-2024 ambulatory DISHA CHEUNG Not Available Start: 04-07-2024 End: 04-07-2024 Bamboo [employer] Cheung MD Work Phone: [facility] Start: 04-07-2024 End: 04-07-2024 Bamboo flowsheet Disha Chueng MD Work Phone: [facility] Start: 04-07-2024 End: 04-07-2024 Telephone encounter Disha Cheung MD Work Phone: [facility] Start: 01-20-2024 End: 01-20-2024 Emergency department patient visit MD Demarco Newell Work Phone: [facility] Work Phone: Start: 01-20-2024 End: 01-20-2024 ambulatory BALDOMERO Tommy ASTUDILLO Not Available Start: 01-12-2024 End: 01-12-2024 Office outpatient new 60 minutes Víctor Wills MD Work Phone: [facility] Comment on above: History of PTCA (Sarah kelsi Dx); Paroxysmal atrial fibrillation (Multi); Coronary artery disease, unspecified vessel or lesion type, unspecified whether angina present, unspecified whether stillaguamish or transplanted heart; Hyperlipidemia, unspecified hyperlipidemia type; Diastolic dysfunction; High risk medication use; Mitral valve insufficiency, unspecified etiology; Aortic valve insufficiency, etiology of cardiac valve disease unspecified; Stage 3 chronic kidney disease, unspecified whether stage 3a or 3b CKD (Multi); BMI 30.0-30.9,adult; Former smoker Start: 01-12-2024 End: 01-12-2024 ambulatory JEAN M [facility] Ambulatory Start: 12-23-2023 End: 12-23-2023 Office outpatient visit 25 minutes Vasyl Covarrubias MD Work Phone: [facility] Comment on above: Coronary artery dise ase involving stillaguamish coronary artery of stillaguamish heart with other form of angina pectoris (HCC) (Primary Dx); Paroxysmal atrial fibrillation (HCC); Chronic anticoagulation Start: 12-11-2023 ambulatory Vijay Lau Pulmonar y Medicine Start: 12-09-2023 Telephone encounter Tang BOSWELL Comment on above: Follow Up Phone Call (RC f/u all clear/) Start: 12-04-2023 ambulatory Barry Whiting [facility] Work Phone: Pharmacy Start: 12-04-2023 Telephone encounter Lui Henderson [facility] Comment on above: Follow Up Phone Call (RC follow up call first attempt./) Follow Up Phone Call (RC follow up call all clear. /) Transition Of Care ( TCM Pharmacy-Hospital discharge 12/03/23/); Heart Failure Coronary artery dise ase with angina pectoris, unspecified vessel or lesion type, unspecified whether stillaguamish or transplanted heart (HCC) (Primary Dx) Start: 12-03-2023 End: 12-03-2023 Evaluation and management of inpatient JOEL PARRISH Facility:[facility] Start: 12-02-2023 End: 12-03-2023 Patient encounter procedure Song Tyler MD Work Phone: Cardiology Start: 12-02-2023 End: 12-03-2023 ambulatory Favian Jane [facility] Work Phone: Pulmonary Medicine Start: 11-28-2023 End: 11-28-2023 Evaluation and management of inpatient JOEL PARRISH Facility:[facility] Start: 11-28-2023 End: 11-28-2023 Evaluation and management of inpatient Pulm Fct Lab Main 3 Pulmonary Medicine Comment on above: Pre-operative cardio vascular examination (Primary Dx) Start: 11-28-2023 End: 11-28-2023 Patient encounter status [facility] Lab Main [address] [facility] Work Phone: Start: 11-27-2023 End: 11-27-2023 Evaluation and management of inpatient HARRISON ANDREWS Facility:[facility] Start: 11-27-2023 ambulatory GAETANO SHAW Facility:[facility] Start: 11-27-2023 Encounter for preprocedural cardiovascular examination JOEL PARRISH [facility] Start: 11-26-2023 Preprocedural examination done Pulm 3 [facility] Work Phone: Start: 11-26-2023 End: 11-26-2023 Evaluation and management of inpatient [place]ARCO [place] Facility:[facility] Start: 11-25-2023 End: 12-03-2023 Evaluation and management of inpatient BECCA SILVERIO Facility:[facility] Start: 11-24-2023 End: 11-25-2023 Evaluation and management of inpatient DEMARCO NEWELL Facility:[facility] Start: 11-17-2023 Steve Covarrubias MD Work Phone: [facility] Start: 11-09-2023 End: 11-10-2023 Emergency department patient visit Jalen Flores Facility:[facility] Start: 11-09-2023 End: 11-10-2023 Emergency department patient visit [facility] Start: 11-04-2023 Emergency department patient visit DEMARCO NEWELL Facility:[facility] Start: 10-31-2023 Patient encounter status Gaetano Shaw MD Work Phone: [facility] Start: 10-31-2023 Telephone encounter Gaetano wilson MD Work Phone: Cardiothoracic Comment on above: Insurance Inquiry Referral Information ; Cardiac Preop Checklist Start: 10-26-2023 End: 11-02-2023 Evaluation and management of inpatient DEMARCO NEWELL Facility:[facility] Start: 10-17-2023 Telephone encounter Ziyad Harmon Cardiology Start: 10-14-2023 End: 10-14-2023 Emergency department patient visit DEMARCO NEWELL Facility:[facility] Start: 09-16-2023 Orders Only Shravan rodríguez MD Work Phone: Cardiology Comment on above: Hypertension, unspec ified type (Primary Dx); Coronary artery disease involving stillaguamish coronary artery of stillaguamish heart, unspecified whether angina present; Hyperlipidemia, unspecified hyperlipidemia type Start: 09-03-2023 End: 09-03-2023 ambulatory [facility] Start: 08-06-2023 End: 08-07-2023 ambulatory [facility] Start: 07-08-2023 End: 07-09-2023 ambulatory DINORAH [facility] Start: 06-11-2023 End: 06-11-2023 ambulatory MD Demarco Newell Work Phone: [facility] Work Phone: Start: 06-11-2023 End: 06-11-2023 Patient encounter procedure MD Demarco Newell Work Phone: [facility] Work Phone: Start: 03-28-2023 End: 03-28-2023 ambulatory EDWIN BLUNT [facility] Start: 11-12-2022 End: 11-13-2022 ambulatory MADELYN DICKSON Facility:[facility] Start: 10-10-2022 End: 10-10-2022 Patient encounter procedure Franchesca Almeida MD Work Phone: Ophthalmology Comment on above: PCO (posterior capsu lar opacification), bilateral (Primary Dx); Pseudophakia of both eyes; Vitreous degeneration, bilateral; Retinal pigment epithelial mottling of macula Start: 09-25-2022 End: 09-25-[address] DEMARCO NEWELL . Facility:[facility] Start: 07-25-2022 End: 07-26-[address] EDWIN BLUNT Facility:[facility] Start: 07-10-2022 End: 07-11-[address] EDWIN BLUNT Facility:[facility] Start: 06-10-2022 End: 06-10-2022 ambulatory MD Demarco Newell Work Phone: [facility] [place] Work Phone: Start: 06-10-2022 End: 06-10-2022 Patient encounter procedure MD Demarco Newell Work Phone: [facility] Start: 05-02-2022 End: 05-02-2022 Patient encounter procedure Franchesca Almeida MD Work Phone: Ophthalmology Comment on [...] eyes Start: 04-01-2022 End: 04-01-[address] DEMARCO NEWELL . 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 (Primary Dx); Posterior vitreous detachment of right eye Combined forms of ag e-related cataract of both eyes (Primary Dx) Start: 01-11-2022 Telephone encounter Franchesca henderson MD Work Phone: Ophthalmology Comment on above: Appointment Start: 05-11-2020 End: 05-12-2020 ambulatory DEMARCO NEWELL Facility:[facility] Start: 04-04-2020 End: 04-05-2020 ambulatory DEMARCO NEWELL Facility:[facility] Start: 02-24-2019 End: 03-05-2019 Evaluation and management of inpatient [facility] Start: 02-23-2019 End: 02-24-2019 Evaluation and management of inpatient [facility] Start: 02-23-2019 End: 02-26-2019 Patient encounter procedure [facility] Start: 02-22-2019 End: 02-24-2019 Patient encounter procedure [facility] Start: 02-22-2019 End: 02-27-2019 Patient encounter procedure [facility] Procedures Date Procedure Procedure Detail Performing Clinician Start: 10-04-2024 Ecg routine ecg w/le ast 12 lds w/i&r Víctor Wills MD Work Phone: Start: 09-15-2024 Cv strs tst xers&/or rx cont ecg trcg only Víctor Wills MD Work Phone: Start: 08-28-2024 Computed tomography of abdomen and pelvis with contrast Demarco Newell MD Work Phone: Start: 08-28-2024 Plain chest X-ray Ric Newell MD Work Phone: Start: 08-28-2024 Viral nucleic acid assay Demarco Newell MD Work Phone: Start: 07-29-2024 Screening mammograph y of bilateral breasts Demarco Newell MD Work Phone: Start: 04-21-2024 GENITAL MYCOPLASMAS ERICK, SWAB Stacy Henderson MD Work Phone: Start: 04-21-2024 Iadna chlamydia trac homatis amplified probe tq Stacy Henderson MD Work Phone: Start: 01-12-2024 Ecg routine ecg w/le ast 12 lds w/i&r Víctor Wills MD Work Phone: Start: 01-12-2024 History of percutane ous transluminal coronary angioplasty History of PTCA Víctor Wills MD Work Phone: Start: 12-23-2023 Ecg routine ecg w/le ast 12 lds w/i&r Basel Ash Covarrubias MD Work Phone: Start: 11-26-2023 Antibody screen JOEL PARRISH Comment on above: Order Comment: Speci men Type: BLOOD SPECIMENOrdering Facility: [facility] Address: [address] [place] [address] Performed By: #### T SCR ####CC MAIN BLOOD BANKCLIA [id number] [place] [address] [place] Start: 10-26-2023 Thyrotropin [Units/v olume] in Serum or Plasma Víctor Wills MD Work Phone: Start: 06-11-2023 Screening mammograph y of bilateral breasts MD Demarco Newell Work Phone: Start: 10-10-2022 End: 10-10-2022 Post-cataract laser surgery Franchesca Almeida MD Work Phone: Start: 06-10-2022 Screening mammograph y of bilateral breasts MD Demarco Newell Work Phone: Start: 04-24-2022 IOL BIOMETRY W/ IOL CALC OU (BOTH EYES) Franchesca Almeida MD Work Phone: Start: 03-07-2022 End: 03-07-2022 Computerized ophthalmic imaging retina Franchesca Almeida MD Work Phone: Start: 03-05-2019 INCENTIVE SPIROMETRY RT JOEL ASHLEY Start: 03-05-2019 DISCHARGE PATIENT JOEL YO O Start: 03-05-2019 INCENTIVE SPIROMETRY RT JOEL ASHLEY Start: 03-05-2019 INCENTIVE SPIROMETRY RT JOEL ASHLEY Start: 03-05-2019 INCENTIVE SPIROMETRY RT JOEL ASHLEY Start: 03-05-2019 INITIATE OXYGEN THER APY PROTOCOL JOEL ASHLEY Start: 03-05-2019 INCENTIVE SPIROMETRY RT JOEL ASHLEY Start: 03-05-2019 INCENTIVE SPIROMETRY RT JOEL ASHLEY Start: 03-04-2019 INCENTIVE SPIROMETRY RT JOEL ASHLEY Start: 03-04-2019 INCENTIVE SPIROMETRY RT JOEL ASHLEY Start: 03-04-2019 INCENTIVE SPIROMETRY RT JOEL ASHLEY Start: 03-04-2019 INCENTIVE SPIROMETRY RT JOEL ASHLEY Start: 03-04-2019 INCENTIVE SPIROMETRY RT JOEL ASHLEY Start: 03-04-2019 INCENTIVE SPIROMETRY RT JOEL ASHLEY Start: 03-04-2019 INCENTIVE SPIROMETRY RT JOEL ASHLEY Start: 03-04-2019 INITIATE OXYGEN THER APY PROTOCOL JOEL ASHLEY Start: 03-04-2019 INCENTIVE SPIROMETRY RT JOEL ASHLEY Start: 03-04-2019 INCENTIVE SPIROMETRY RT JOEL ASHLEY Start: 03-03-2019 INCENTIVE SPIROMETRY RT JOEL ASHLEY Start: 03-03-2019 INCENTIVE SPIROMETRY RT JOEL ASHLEY Start: 03-03-2019 INCENTIVE SPIROMETRY RT JOEL ASHLEY Start: 03-03-2019 INCENTIVE SPIROMETRY RT JOEL ASHLEY Start: 03-03-2019 INCENTIVE SPIROMETRY RT JOEL ASHLEY Start: 03-03-2019 APPLY HEAT TO AFFECTED AREA JOEL ASHLEY Start: 03-03-2019 INCENTIVE SPIROMETRY RT JOEL ASHLEY Start: 03-03-2019 INCENTIVE SPIROMETRY RT JOEL ASHLEY Start: 03-03-2019 INITIATE OXYGEN THER APY PROTOCOL JOEL ASHLEY Start: 03-03-2019 INCENTIVE SPIROMETRY RT JOEL ASHLEY Start: 03-03-2019 INCENTIVE SPIROMETRY RT JOEL ASHLEY Start: 03-02-2019 INCENTIVE SPIROMETRY RT JOEL ASHLEY Start: 03-02-2019 INCENTIVE SPIROMETRY RT JOEL ASHLEY Start: 03-02-2019 INCENTIVE SPIROMETRY RT JOEL ASHLEY Start: 03-02-2019 Assay of homocysteine B O ASHLEY Start: 03-02-2019 Assay of thyroid sti mulating hormone tsh JOEL ASHLEY Start: 03-02-2019 Cyanocobalamin vitamin b-12 JOEL ASHLEY Start: 03-02-2019 AMB EXTERNAL REFERRA L TO OCCUPATIONAL THERAPY JOEL ASHLEY Start: 03-02-2019 AMB EXTERNAL REFERRA L TO PHYSICAL THERAPY JOEL ASHLEY Start: 03-02-2019 AMB EXTERNAL REFERRA L TO SPEECH THERAPY JOEL ASHLEY Start: 03-02-2019 INCENTIVE SPIROMETRY RT JOEL ASHLEY Start: 03-02-2019 INCENTIVE SPIROMETRY RT JOEL ASHLEY Start: 03-02-2019 INCENTIVE SPIROMETRY RT JOEL ASHLEY Start: 03-02-2019 INCENTIVE SPIROMETRY RT JOEL ASHLEY Start: 03-02-2019 INITIATE OXYGEN THER APY PROTOCOL JOEL ASHLEY Start: 03-02-2019 INCENTIVE SPIROMETRY RT JOEL ASHLEY Start: 03-02-2019 INCENTIVE SPIROMETRY RT JOEL ASHLEY Start: 03-01-2019 INCENTIVE SPIROMETRY RT JOEL ASHLEY Start: 03-01-2019 INCENTIVE SPIROMETRY RT JOEL ASHLEY Start: 03-01-2019 INCENTIVE SPIROMETRY RT JOEL ASHLEY Start: 03-01-2019 IP CONSULT TO NEUROLOGY JOEL ASHLEY Start: 03-01-2019 INCENTIVE SPIROMETRY RT JOEL ASHLEY Start: 03-01-2019 INCENTIVE SPIROMETRY RT JOEL ASHLEY Start: 03-01-2019 INCENTIVE SPIROMETRY RT JOEL ASHLEY Start: 03-01-2019 INCENTIVE SPIROMETRY RT JOEL ASHLEY Start: 03-01-2019 INITIATE OXYGEN THER APY PROTOCOL JOEL ASHLEY Start: 03-01-2019 INCENTIVE SPIROMETRY RT JOEL ASHLEY Start: 03-01-2019 INCENTIVE SPIROMETRY RT JOEL ASHLEY Start: 02-28-2019 INCENTIVE SPIROMETRY RT JOEL ASHLEY Start: 02-28-2019 Urnls dip stick/tabl et rgnt auto w/o microscopy JOEL ASHLEY Start: 02-28-2019 INCENTIVE SPIROMETRY RT JOEL ASHLEY Start: 02-28-2019 INCENTIVE SPIROMETRY RT JOEL ASHLEY Start: 02-28-2019 INCENTIVE SPIROMETRY RT JOEL ASHLEY Start: 02-28-2019 INCENTIVE SPIROMETRY RT JOEL ASHLEY Start: 02-28-2019 INCENTIVE SPIROMETRY RT JOEL ASHLEY Start: 02-28-2019 INCENTIVE SPIROMETRY RT JOEL ASHLEY Start: 02-28-2019 INITIATE OXYGEN THER APY PROTOCOL JOEL ASHLEY Start: 02-28-2019 INCENTIVE SPIROMETRY RT JOEL ASHLEY Start: 02-28-2019 INCENTIVE SPIROMETRY RT JOEL ASHLEY Start: 02-27-2019 INCENTIVE SPIROMETRY RT JOEL ASHLEY Start: 02-27-2019 INCENTIVE SPIROMETRY RT JOEL ASHLEY Start: 02-27-2019 INCENTIVE SPIROMETRY RT JOEL ASHLEY Start: 02-27-2019 INCENTIVE SPIROMETRY RT JOEL ASHLEY Start: 02-27-2019 INCENTIVE SPIROMETRY RT JOEL ASHLEY Start: 02-27-2019 INCENTIVE SPIROMETRY RT JOEL ASHLEY Start: 02-27-2019 INCENTIVE SPIROMETRY RT JOEL ASHLEY Start: 02-27-2019 INITIATE OXYGEN THER APY PROTOCOL JOEL ASHLEY Start: 02-27-2019 INCENTIVE SPIROMETRY RT JOEL ASHLEY Start: 02-27-2019 INCENTIVE SPIROMETRY RT JOEL ASHLEY Start: 02-26-2019 INCENTIVE SPIROMETRY RT JOEL ASHLEY Start: 02-26-2019 INCENTIVE SPIROMETRY RT JOEL ASHLEY Start: 02-26-2019 INCENTIVE SPIROMETRY RT JOEL ASHLEY Start: 02-26-2019 INCENTIVE SPIROMETRY RT JOEL ASHLEY Start: 02-26-2019 INCENTIVE SPIROMETRY RT JOEL ASHLEY Start: 02-26-2019 NURSING COMMUNICATION B O ASHLEY Start: 02-26-2019 INCENTIVE SPIROMETRY RT JOEL ASHLEY Start: 02-26-2019 INCENTIVE SPIROMETRY RT JOEL ASHLEY Start: 02-26-2019 INITIATE OXYGEN THER APY PROTOCOL JOEL ASHLEY Start: 02-26-2019 INCENTIVE SPIROMETRY RT JOEL ASHLEY Start: 02-26-2019 INTAKE AND OUTPUT JOEL YO O Start: 02-26-2019 INCENTIVE SPIROMETRY RT JOEL ASHLEY Start: 02-25-2019 INCENTIVE SPIROMETRY RT JOEL ASHLEY Start: 02-25-2019 INCENTIVE SPIROMETRY RT JOEL ASHLEY Start: 02-25-2019 INCENTIVE SPIROMETRY RT JOEL ASHLEY Start: 02-25-2019 INCENTIVE SPIROMETRY RT JOEL ASHLEY Start: 02-25-2019 LINE BUILDER EVAL AND TREAT JOEL Y OO Start: 02-25-2019 INCENTIVE SPIROMETRY RT JOEL ASHLEY Start: 02-25-2019 INCENTIVE SPIROMETRY RT JOEL ASHLEY Start: 02-25-2019 INCENTIVE SPIROMETRY RT JOEL ASHLEY Start: 02-25-2019 INITIATE OXYGEN THER APY PROTOCOL JOEL ASHLEY Start: 02-25-2019 IP CONSULT TO HOSPITALIST JOEL ASHLEY Start: 02-25-2019 Blood count complete automated JOEL ASHLEY Start: 02-25-2019 INCENTIVE SPIROMETRY RT JOEL ASHLEY Start: 02-25-2019 DAILY WEIGHTS JOEL ASHLEY Start: 02-25-2019 INTAKE AND OUTPUT JOEL YO O Start: 02-25-2019 INCENTIVE SPIROMETRY RT JOEL ASHLEY Start: 02-24-2019 INCENTIVE SPIROMETRY RT JOEL ASHLEY Start: 02-24-2019 Gluc bld gluc mntr d ev cleared fda spec home use OJEL ASHLEY Start: 02-24-2019 INCENTIVE SPIROMETRY RT JOEL ASHLEY Start: 02-24-2019 Culture bacterial quanttative colony count urine JOEL ASHLEY Start: 02-24-2019 Urinalysis microscopic only JOEL ASHLEY Start: 02-24-2019 Urnls dip stick/tabl et rgnt auto w/o microscopy JOEL ASHLEY Start: 02-24-2019 IP CONSULT TO NEUROSURGERY JOEL ASHLEY Start: 02-24-2019 ENCOURAGE DEEP BREAT BARRY AND COUGHING JOEL ASHLEY Start: 02-24-2019 FULL CODE JOEL ASHLEY Start: 02-24-2019 IP CONSULT TO CASE MANAGEMENT JOEL ASHLEY Start: 02-24-2019 IP CONSULT TO HOSPITALIST JOEL ASHLEY Start: 02-24-2019 IP CONSULT TO RECREA TION THERAPY JOEL ASHLEY Start: 02-24-2019 OT EVAL AND TREAT JOEL YO O Start: 02-24-2019 PLACE INTERMITTENT P NEUMATIC COMPRESSION DEVICE JOEL ASHLEY Start: 02-24-2019 PT EVAL AND TREAT JOEL YO O Start: 02-24-2019 PULSE OXIMETRY SPOT CHECK JOEL ASHLEY Start: 02-24-2019 REASON FOR NO CHEMIC AL VTE PROPHYLAXIS JOEL ASHLEY Start: 02-24-2019 FALL PRECAUTIONS JOEL ASHLEY Start: 02-24-2019 INITIATE OXYGEN THER APY PROTOCOL JOEL ASHLEY Start: 02-24-2019 MEASURE WEIGHT JOEL ASHLEY Start: 02-24-2019 NOTIFY PHYSICIAN (SPECIFY) JOEL ASHLEY Start: 02-24-2019 PATIENT STATUS (DIRECT) JOEL ASHLEY Start: 02-24-2019 REMOVE AND REPLACE T ED HOSE DAILY JOEL ASHLEY Start: 02-24-2019 TURN PATIENT JOEL ASHLEY Start: 02-24-2019 VITAL SIGNS JOEL ASHLEY Start: 02-24-2019 ACTIVITY TOLERATED B O ASHLEY Start: 02-24-2019 AMBULATE PATIENT JOEL ASHLEY Start: 02-24-2019 DIET GENERAL JOEL ASHLEY Start: 02-24-2019 INCENTIVE SPIROMETRY RT JOEL ASHLEY Start: 02-24-2019 INTAKE AND OUTPUT JOEL YO O Start: 02-24-2019 NEURO/VASCULAR CHECKS B O ASHLEY Start: 02-24-2019 WOUND CARE JOEL ASHLEY Start: 02-24-2019 DISCHARGE PATIENT JOEL YO O Start: 02-24-2019 INCENTIVE SPIROMETRY RT JOEL ASHLEY Start: 02-24-2019 Radex spine lumbosac ral 2/3 views JOEL ASHLEY Start: 02-24-2019 INCENTIVE SPIROMETRY RT JOEL ASHLEY Start: 02-24-2019 PULSE OXIMETRY, CONTINUOUS JOEL ASHLEY Start: 02-24-2019 INCENTIVE SPIROMETRY RT JOEL ASHLEY Start: 02-24-2019 INCENTIVE SPIROMETRY RT JOEL ASHLEY Start: 02-24-2019 INITIATE OXYGEN THER APY PROTOCOL JOEL ASHLEY Start: 02-24-2019 PULSE OXIMETRY, CONTINUOUS JOEL ASHLEY Start: 02-24-2019 INCENTIVE SPIROMETRY RT JOEL ASHLEY Start: 02-24-2019 Blood count complete auto&auto difrntl wbc JOEL ASHLEY Start: 02-24-2019 Comprehensive metabo lic panel JOEL ASHLEY Start: 02-24-2019 PULSE OXIMETRY, CONTINUOUS JOEL ASHLEY Start: 02-24-2019 DIET GENERAL JOEL ASHLEY Start: 02-24-2019 ACTIVITY TOLERATED B O ASHLEY Start: 02-24-2019 AMBULATE PATIENT JOEL ASHLEY Start: 02-24-2019 CATHETER REMOVAL JOEL ASHLEY Start: 02-24-2019 DAILY WEIGHTS JOEL ASHLEY Start: 02-24-2019 OT EVAL AND TREAT JOEL YO O Start: 02-24-2019 PT EVAL AND TREAT JOEL YO O Start: 02-24-2019 PULSE OXIMETRY, CONTINUOUS JOEL ASHLEY Start: 02-24-2019 INCENTIVE SPIROMETRY RT JOEL ASHLEY Start: 02-23-2019 INCENTIVE SPIROMETRY RT JOEL ASHLEY Start: 02-23-2019 PULSE OXIMETRY, CONTINUOUS JOEL ASHLEY Start: 02-23-2019 INCENTIVE SPIROMETRY RT JOEL ASHLEY Start: 02-23-2019 PLACE INTERMITTENT P NEUMATIC COMPRESSION DEVICE JOEL ASHLEY Start: 02-23-2019 PULSE OXIMETRY, CONTINUOUS JOEL ASHLEY Start: 02-23-2019 ADVANCE DIET TOLE RATED (NURSING COMMUNICATION) JOEL ASHLEY Start: 02-23-2019 INCENTIVE SPIROMETRY RT JOEL ASHLEY Start: 02-23-2019 INITIATE OXYGEN THER APY PROTOCOL JOEL ASHLEY Start: 02-23-2019 INTAKE AND OUTPUT JOEL YO O Start: 02-23-2019 NEURO/VASCULAR CHECKS B O ASHLEY Start: 02-23-2019 TOBACCO CESSATION EDUCATION JOEL ASHLEY Start: 02-23-2019 WOUND CARE JOEL ASHLEY Start: 02-23-2019 FULL CODE JOEL ASHLEY Start: 02-23-2019 NOTIFY PHYSICIAN (SPECIFY) JOEL ASHLEY Start: 02-23-2019 VITAL SIGNS JOEL ASHLEY Start: 02-23-2019 TELEMETRY MONITORING JOEL ASHLEY Start: 02-23-2019 Blood count complete automated JOEL ASHLEY Start: 02-23-2019 Comprehensive metabo lic panel JOEL ASHLEY Start: 02-23-2019 PATIENT STATUS (FROM ED OR OR/PROCEDURAL) JOEL ASHLEY Start: 02-23-2019 TRANSFER PATIENT JOEL AHSLEY Start: 02-23-2019 FLUORO FOR SURGICAL PROCEDURES JOEL ASHLEY Start: 02-23-2019 Level iv surg pathol ogy gross&microscopic exam JOEL SAHLEY Start: 02-23-2019 Level iv surg pathol ogy gross&microscopic exam JOEL ASHLEY Start: 02-22-2019 Radex entir thrc lmb r crv sac spi w/skull 2/3 vw JOEL ASHLEY Start: 02-22-2019 Blood count complete automated JOEL ASHLEY Start: 02-22-2019 Prothrombin time JOEL ASHLEY Start: 02-22-2019 Thromboplastin time partial plasma/whole blood JOEL ASHLEY Start: 02-22-2019 Basic metabolic pane l calcium total JOEL ASHLEY Start: 02-22-2019 TYPE AND SCREEN JOEL ASHLEY Start: 02-22-2019 Ecg routine ecg w/le ast 12 lds w/i&r JOEL ASHLEY Start: 06-14-2016 Adult depression scr eening assessment Franchesca Wayne MD Work Phone: History of percutane ous transluminal coronary angioplasty History of PTCA Víctor Wills MD Work Phone: History of percutane ous transluminal coronary angioplasty History of PTCA Víctor Wills MD Work Phone: Plan of Treatment Date Care Activity Detail Author Start: 12-02-2026 Diabetes Screening Diabetes Screening [facility] Start: 12-01-2026 Diabetes Screening Diabetes Screening [facility] Start: 11-27-2026 Diabetes Screening Diabetes Screening [facility] Start: 11-04-2026 Diabetes Screening Diabetes Screening [facility] Start: 10-30-2026 Diabetes Screening Diabetes Screening [facility] Start: 10-12-2026 Diabetes Screening Diabetes Screening [facility] Start: 02-24-2025 End: 02-24-2025 Patient encounter procedure 02/24/2025 10:20 AM EDT Office Visit [facility] [address] [facility] [address] [place] [phone] Víctor Wills MD [address] [facility] [address] [place] [address] [facility] Start: 12-22-2024 BP Controlled (<130/80) BP Controlled (<130/80) [facility] Start: 12-02-2024 Complete blood count Hemoglobin/Hematocrit [facility] Start: 12-02-2024 Creatinine measurement Serum Creatinine [facility] Start: 12-01-2024 Complete blood count Hemoglobin/Hematocrit [facility] Start: 12-01-2024 Creatinine measurement Serum Creatinine [facility] Start: 11-27-2024 Complete blood count Hemoglobin/Hematocrit [facility] Start: 11-27-2024 Creatinine measurement Serum Creatinine [facility] Start: 10-30-2024 Hepatitis B surface antibody level LDL Cholesterol [facility] Start: 10-25-2024 Thyroid stimulating hormone measurement TSH Level [facility] Start: 10-04-2024 End: 10-04-2024 Patient encounter procedure 10/04/2024 3:00 PM EST Office Visit [facility] [address] [facility] [address] [place] [phone] Víctor Wills MD [address] [facility] [address] [place] [address] [facility] Start: 10-04-2024 End: 10-04-2025 Alanine aminotransferase [Enzymatic activity/volume] in Serum or Plasma by With P-5'-P Alanine Aminotransferase Lab Routine Mixed hyperlipidemia Expected: 10/04/2024, Expires: 10/04/2025 [facility] Service Area Work Phone: Comment on above: Expected: 10/04/2024, Expires: Start: 10-04-2024 End: 10-04-2025 Aspartate aminotransferase [Enzymatic activity/volume] in Serum or Plasma by With P-5'-P Aspartate Aminotransferase Lab Routine Mixed hyperlipidemia Expected: 10/04/2024, Expires: 10/04/2025 [facility] Work Phone: Comment on above: Expected: 10/04/2024, Expires: Start: 10-04-2024 End: 10-04-2025 Basic metabolic 2000 panel - Serum or Plasma Basic Metabolic Panel Lab Routine Coronary artery disease, unspecified vessel or lesion type, unspecified whether angina present, unspecified whether [place] or transplanted heart Stage 3a chronic kidney disease (Multi) Expected: 10/04/2024, Expires: 10/04/2025 [facility] Work Phone: Comment on above: Expected: 10/04/2024, Expires: Start: 10-04-2024 End: 10-04-2025 CBC panel - Blood by Automated count CBC Lab Routine Coronary artery disease, unspecified vessel or lesion type, unspecified whether angina present, unspecified whether [place] or transplanted heart Stage 3a chronic kidney disease (Multi) Expected: 10/04/2024, Expires: 10/04/2025 [facility] Work Phone: Comment on above: Expected: 10/04/2024, Expires: Start: 10-04-2024 End: 10-04-2025 Lipid 1996 panel - Serum or Plasma Lipid Panel Lab Routine Mixed hyperlipidemia Expected: 10/04/2024, Expires: 10/04/2025 [facility] Work Phone: Comment on above: Expected: 10/04/2024, Expires: Start: 08-29-2024 [facility] Start: 08-28-2024 Consultation [facility] Start: 08-28-2024 Hospital admission [facility] Start: 08-28-2024 Referral to numerical control machine machinist [facility] Start: 08-28-2024 Hospital admission [facility] Start: 08-28-2024 End: 08-28-2024 Urine culture [facility] Start: 08-28-2024 Bacteria identified in Urine by Culture Urine Culture [facility] Start: 08-12-2024 End: 08-12-2024 Patient encounter procedure 08/12/2024 11:00 AM EST Office Visit [facility] [address] [place] [phone] Disha Cheung MD [address] [place] [address] Arrived [facility] Comment on above: Arrived Start: 08-02-2024 End: 08-02-2024 Patient encounter procedure 08/02/2024 3:40 PM EST Office Visit [facility] [address] [place] [phone] Disha Cheung MD [address] [place] [address] [facility] Start: 07-16-2024 End: 07-16-2024 Patient encounter procedure 07/16/2024 2:30 PM EST Office Visit [facility] [address] [facility] [address] [place] [address] Víctor Wills MD [address] [facility] [place] [address] [facility] Start: 07-16-2024 End: 07-16-2025 Alanine aminotransferase [Enzymatic activity/volume] in Serum or Plasma by With P-5'-P Alanine Aminotransferase Lab Routine Coronary artery disease, unspecified vessel or lesion type, unspecified whether angina present, unspecified whether [place] or transplanted heart Mixed hyperlipidemia Expected: 07/16/2024 (Approximate), Expires: 07/16/2025 [facility] Service Area Work Phone: Comment on above: Expected: 07/16/2024 (Approximate), Expi res: 07/16/2025 Start: 07-16-2024 End: 07-16-2025 Aspartate aminotransferase [Enzymatic activity/volume] in Serum or Plasma by With P-5'-P Aspartate Aminotransferase Lab Routine Coronary artery disease, unspecified vessel or lesion type, unspecified whether angina present, unspecified whether [place] or transplanted heart Mixed hyperlipidemia Expected: 07/16/2024 (Approximate), Expires: 07/16/2025 [facility] Work Phone: Comment on above: Expected: 07/16/2024 (Approximate), Expi res: 07/16/2025 Start: 07-16-2024 End: 07-16-2025 Basic metabolic 2000 panel - Serum or Plasma Basic Metabolic Panel Lab Routine Coronary artery disease, unspecified vessel or lesion type, unspecified whether angina present, unspecified whether [place] or transplanted heart Diastolic dysfunction Expected: 07/16/2024 (Approximate), Expires: 07/16/2025 [facility] Work Phone: Comment on above: Expected: 07/16/2024 (Approximate), Expi res: 07/16/2025 Start: 07-16-2024 End: 07-16-2025 CBC panel - Blood by Automated count CBC Lab Routine Coronary artery disease, unspecified vessel or lesion type, unspecified whether angina present, unspecified whether still[place] or transplanted heart Diastolic dysfunction Expected: 07/16/2024 (Approximate), Expires: 07/16/2025 [facility] Work Phone: Comment on above: Expected: 07/16/2024 (Approximate), Expi res: 07/16/2025 Start: 07-16-2024 End: 07-16-2025 Lipid 1996 panel - Serum or Plasma Lipid Panel Lab Routine Coronary artery disease, unspecified vessel or lesion type, unspecified whether angina present, unspecified whether still[place] or transplanted heart Mixed hyperlipidemia Expected: 07/16/2024 (Approximate), Expires: 07/16/2025 [facility] Work Phone: Comment on above: Expected: 07/16/2024 (Approximate), Expi res: 07/16/2025 Start: 06-20-2024 Pneumococcal vaccination Pneumococcal Vaccine (2 of 2 - PCV) [facility] Start: 06-20-2024 Pneumococcal Vaccine: 65+ (2 of 2 - PCV) Pneumococcal Vaccine: 65+ (2 of 2 - PCV) [facility] Start: 06-20-2024 Pneumococcal Vaccine: 65+ Years (2 of 2 - PCV) Pneumococcal Vaccine: 65+ Years (2 of 2 - PCV) [facility] Start: 06-09-2024 End: 06-09-2024 Patient encounter procedure [facility] Comment on above: Arrived Start: 04-21-2024 End: 06-21-2025 DBT Breast - bilateral screening Bilateral screening mammogram with tomosynthesis Imaging Routine Encounter for screening mammogram for malignant neoplasm of breast Expected: 04/21/2024, Expires: 06/21/2025 [facility] Work Phone: Comment on above: Expected: 04/21/2024, Expires: Start: 04-11-2024 Covid-19 Vaccine () Covid-19 Vaccine () [facility] Start: 04-11-2024 Influenza vaccination [facility] Start: 04-07-2024 End: 04-07-2024 Patient encounter procedure 04/07/2024 2:20 PM EDT Office Visit [facility] [address] [place] [phone] Disha Cheung MD [address] [place] [id number] Arrived [facility] Comment on above: Arrived Start: 01-08-2024 End: 01-08-2024 Patient encounter procedure 01/08/2024 11:30 AM EDT Office Visit Cardiology [address] [phone] Song Tyler MD [address] [place] [address] Clinician, Interventional [address] [phone] hx stents; SOB Cardiology Comment on above: hx stents; SOB Start: 01-08-2024 End: 01-08-2024 ambulatory 01/08/2024 10:45 AM EDT Results Only Cardiology [address] [place] [address] hx stents; SOB Cardiology Comment on above: hx stents; SOB Start: 01-06-2024 End: 01-06-2024 Patient encounter procedure 01/06/2024 11:00 AM EDT Office Visit [facility] [address] [place], [place] [phone] [place] [address] [place] [phone] [facility] [address]EN Comment on above: neisha swartz Start: 12-31-2023 End: 12-31-2023 Patient encounter procedure 12/31/2023 10:00 AM EDT Office Visit Kidney [address] [address] [place] [address] [place], [place] [phone] CKD [facility] Comment on above: CKD Start: 12-05-2023 End: 12-05-2023 Admission to same day surgery center 12/05/2023 7:00 AM EDT - 12/05/2023 4:00 PM EDT Surgery Admitting [address] [place] [address] Gaetano Shaw MD [address] [phone] MVr-CABG [id number] +/- AVR (2-3) Admitting Comment on above: MVr-CABG [id number] +/- AVR (2-3) Start: 12-05-2023 End: 12-05-2023 Coronary artery bypass 1 coronary venous graft BYPASS GRAFT ARTERY CORONARY ON-PUMP SINGLE CORONARY VENOUS GRAFT Pre-operative cardiovascular examination Aortic valve disorder Paroxysmal atrial fibrillation (HCC) Atherosclerosis of [place] coronary artery of [place] heart without angina pectoris Mitral valve disorder 12/05/2023 7:00 AM EDT [facility] Start: 12-05-2023 End: 12-05-2023 Maze procedure for atrial fibrillation FULL MAZE W/ CARDIOPULMONARY BYPASS Pre-operative cardiovascular examination Aortic valve disorder Paroxysmal atrial fibrillation (HCC) Atherosclerosis of [place] coronary artery of [place] heart without angina pectoris Mitral valve disorder 12/05/2023 7:00 AM EDT [facility] Start: 12-05-2023 Subsequent hospital visit by physician 12/05/2023 7:00 AM EDT Hospital Encounter Admitting [address] [place] [address] Gaetano Shaw MD [address] [facility] [address] [address] Pre-operative cardiovascular examination [Z01.810] Admitting Comment on above: Pre-operative cardiovascular examination [Z01.810] Start: 12-05-2023 End: 12-05-2023 Vlvp mitral valve w/card byp w/prostc ring VALVULOPLASTY MITRAL W/ RING AND BYPASS Pre-operative cardiovascular examination Aortic valve disorder Paroxysmal atrial fibrillation (HCC) Atherosclerosis of [place] coronary artery of [place] heart without angina pectoris Mitral valve disorder 12/05/2023 7:00 AM EDT [facility] Start: 12-04-2023 End: 12-04-2023 Patient encounter procedure Cardiothoracic Comment on above: [facility] 12/05/23 COLIN Start: 12-04-2023 End: 12-04-2023 ambulatory Pulmonary Medicine Comment on above: i05.9 Start: 12-03-2023 End: 12-03-2023 Patient encounter procedure Vascular Medicine Comment on above: Shortness of breath; Pre-operative cardiovascular examination; Aortic valve disorder; Paroxysmal atrial fibrillation (HCC); Atherosclerosis of [place] coronary artery of [place] heart without angina pectoris; Mitral valve disorder CYCLOPS i05.9 Start: 12-03-2023 End: 12-03-2023 ambulatory 12/03/2023 9:15 AM EDT Results Only [facility] [place] [address] i05.9 [facility] J1-4 Draw Station Comment on above: i05.9 Start: 11-11-2023 End: 02-10-2024 aPTT in Platelet poor plasma by Coagulation assay ACTIVATED PTT Lab Routine Pre-operative cardiovascular examination Aortic valve disorder Paroxysmal atrial fibrillation (HCC) Atherosclerosis of [place] coronary artery of [place] heart without angina pectoris Mitral valve disorder Expected: 11/11/2023 (Approximate), Expires: 02/10/2024 [facility] Work Phone: Comment on above: Expected: 11/11/2023 (Approximate), Expi res: 02/10/2024 Start: 11-11-2023 End: 02-10-2024 Comprehensive metabolic 2000 panel - Serum or Plasma COMP METABOLIC PANEL Lab Routine Pre-operative cardiovascular examination Aortic valve disorder Paroxysmal atrial fibrillation (HCC) Atherosclerosis of [place] coronary artery of [place] heart without angina pectoris Mitral valve disorder Expected: 11/11/2023, Expires: 02/10/2024 [facility] Work Phone: Comment on above: Expected: 11/11/2023, Expires: Start: 11-11-2023 End: 02-10-2024 CONFIRM BLOOD TYPE CONFIRM BLOOD TYPE Blood Bank Routine Pre-operative cardiovascular examination Aortic valve disorder Paroxysmal atrial fibrillation (HCC) Atherosclerosis of [place] coronary artery of [place] heart without angina pectoris Mitral valve disorder Expected: 11/11/2023, Expires: 02/10/2024 [facility] Work Phone: Comment on above: Expected: 11/11/2023, Expires: Start: 11-11-2023 End: 02-10-2024 Lactate dehydrogenase [Enzymatic activity/volume] in Serum or Plasma LD LACTATE DEHYDRO Lab Routine Pre-operative cardiovascular examination Aortic valve disorder Paroxysmal atrial fibrillation (HCC) Atherosclerosis of [place] coronary artery of [place] heart without angina pectoris Mitral valve disorder Expected: 11/11/2023, Expires: 02/10/2024 [facility] Work Phone: Comment on above: Expected: 11/11/2023, Expires: Start: 11-11-2023 End: 02-10-2024 PT panel - Platelet poor plasma by Coagulation assay PROTHROMBIN TIME Lab Routine Pre-operative cardiovascular examination Aortic valve disorder Paroxysmal atrial fibrillation (HCC) Atherosclerosis of [place] coronary artery of [place] heart without angina pectoris Mitral valve disorder Expected: 11/11/2023 (Approximate), Expires: 02/10/2024 [facility] Work Phone: Comment on above: Expected: 11/11/2023 (Approximate), Expi res: 02/10/2024 Start: 11-11-2023 End: 02-10-2024 Thyrotropin [Units/volume] in Serum or Plasma TSH BLD Lab Routine Pre-operative cardiovascular examination Aortic valve disorder Paroxysmal atrial fibrillation (HCC) Atherosclerosis of [place] coronary artery of [place] heart without angina pectoris Mitral valve disorder Expected: 11/11/2023 (Approximate), Expires: 02/10/2024 [facility] Work Phone: Comment on above: Expected: 11/11/2023 (Approximate), Expi res: 02/10/2024 Start: 11-11-2023 End: 02-10-2024 TYPE AND SCREEN,30 DAY TYPE AND SCREEN,30 DAY Blood Bank Routine Pre-operative cardiovascular examination Aortic valve disorder Paroxysmal atrial fibrillation (HCC) Atherosclerosis of [place] coronary artery of [place] heart without angina pectoris Mitral valve disorder Expected: 11/11/2023, Expires: 02/10/2024 [facility] Work Phone: Comment on above: Expected: 11/11/2023, Expires: Start: 11-11-2023 End: 02-10-2024 URINALYSIS, DIPSTICK ONLY URINALYSIS, DIPSTICK ONLY Lab Routine Pre-operative cardiovascular examination Aortic valve disorder Paroxysmal atrial fibrillation (HCC) Atherosclerosis of [place] coronary artery of [place] heart without angina pectoris Mitral valve disorder Expected: 11/11/2023, Expires: 02/10/2024 [facility] Work Phone: Comment on above: Expected: 11/11/2023, Expires: Start: 08-11-2023 Advance Directive Discussion Advance Directive Discussion [facility] Start: 08-11-2023 Depression Assessment Depression Assessment [facility] Start: 04-11-2023 Covid-19 Vaccine () Covid-19 Vaccine () [facility] Start: 04-11-2023 Influenza vaccination Influ[facility] (#[facility] Start: 03-07-2023 End: 08-29-2023 IOL BIOMETRY W/ IOL CALC OU (BOTH EYES) IOL BIOMETRY W/ IOL CALC OU (BOTH EYES) OPHT Imaging Routine Combined forms of age-related cataract of both eyes Expected: 03/07/2023, Expires: 08/29/2023 [facility] Work Phone: Comment on above: Expected: 03/07/2023, Expires: 4 Start: 08-11-2022 ADVANCE DIRECTIVE DISCUSSION ADVANCE DIRECTIVE DISCUSSION [facility] Start: 07-09-2022 COVID-19 VACCINE (4 - Booster for Pfizer series) COVID-19 VACCINE (4 - Booster for Pfizer series) [facility] Start: 05-03-2022 COVID-19 VACCINE (4 - Booster for Pfizer series) COVID-19 VACCINE (4 - Booster for Pfizer series) [facility] Start: 04-11-2022 Influenza vaccination [facility] Start: 02-24-2022 Diabetes Screening Diabetes Screening [facility] Start: 08-11-2021 ADVANCE DIRECTIVE DISCUSSION ADVANCE DIRECTIVE DISCUSSION [facility] Start: 03-01-2021 COVID-19 VACCINE (3 - Booster for Pfizer series) COVID-19 VACCINE (3 - Booster for Pfizer series) [facility] Start: 2021 RSV High Risk: (Elderly (60+) or Population) (1 - 1-dose 75+ series) RSV High Risk: (Elderly (60+) or Population) (1 - 1-dose 75+ series) [facility] Start: 2021 RSV Vaccine (1 - 1-dose 75+ series) RSV Vaccine (1 - 1-dose 75+ series) [facility] Start: 06-20-2019 DIABETES SCREEN DIABETES SCREEN [facility] Start: 05-28-2018 Pneumococcal Vaccine: 65+ (2 of 2 - PCV) Pneumococcal Vaccine: 65+ (2 of 2 - PCV) [facility] Start: 05-28-2018 Pneumococcal Vaccine: 65+ Years (2 of 2 - PCV) Pneumococcal Vaccine: 65+ Years (2 of 2 - PCV) [facility] Start: 06-14-2017 Adult depression screening assessment DEPRESSION SCREENING [facility] Start: 05-30-2013 PNEUMOCOCCAL: 65+ (2 - PCV) PNEUMOCOCCAL: 65+ (2 - PCV) [facility] Start: 2011 BONE DENSITY BONE DENSITY [facility] Start: 2011 Screening for osteoporosis Bone Density Screening [facility] Start: 2006 RSV patients and/or patients aged 60+ years (1 - 1-dose 60+ series) RSV patients and/or patients aged 60+ years (1 - 1-dose 60+ series) [facility] Start: 2006 RSV Vaccine (1 - 1-dose 60+ series) RSV Vaccine (1 - 1-dose 60+ series) [facility] Start: 01-22-1996 SHINGRIX VACCINE (1 of 2) SHINGRIX VACCINE (1 of 2) [facility] Start: 01-22-1996 Zoster Vaccines (1 of 2) Zoster Vaccines (1 of 2) [facility] Start: 1991 COLOGUARD (FIT-DNA) COLOGUARD (FIT-DNA) [facility] Start: 1991 Colonoscopy COLONOSCOPY [facility] Start: 1991 COLORECTAL CANCER SCREENING COLORECTAL CANCER SCREENING [facility] Start: [address] COLONOGRAPHY [facility] Start: 1991 FECAL OCCULT BLOOD FECAL OCCULT BLOOD [facility] Start: 1991 LIPID SCREEN LIPID SCREEN [facility] Start: 1991 SIGMOIDOSCOPY SIGMOIDOSCOPY [facility] Start: 01-22-1968 DTaP/Tdap/Td Vaccines (1 - Tdap) DTaP/Tdap/Td Vaccines (1 - Tdap) [facility] Start: 1965 Urine microalbumin profile [facility] Start: 1965 Urine screening for protein CKD: Urine Protein Screening [facility] Start: 01-22-1964 ANNUAL PCP TEAM CHRONIC DISEASE VISIT ANNUAL PCP TEAM CHRONIC DISEASE VISIT [facility] Start: 01-22-1964 BP CONTROLLED (<130/80) BP CONTROLLED (<130/80) [facility] Start: 01-22-1964 Diabetes mellitus screening Diabetes Screening [facility] Start: 01-22-1964 Hepatitis B surface antibody level LDL CHOLESTEROL [facility] Start: 01-22-1964 HEPATITIS C SCREENING HEPATITIS C SCREENING [facility] Start: 01-22-1964 Hepatitis C screening Hepatitis C Screening [facility] Start: 1958 Adult depression screening assessment DEPRESSION SCREENING [facility] Start: 1951 COVID-19 VACCINE (#1) COVID-19 VACCINE (#1) [facility] Start: 1946 Creatinine measurement Creatinine Level [facility] Start: 1946 Echocardiography Echocardiogram [facility] Start: 1946 Lipid panel Lipid Panel [facility] Start: 1946 Medicare Annual Wellness Visit Medicare Annual Wellness Visit (AWV) [facility] Start: 1946 Potassium measurement Potassium Level [facility] Start: 1946 Screening for osteoporosis Bone Density Scan [facility] CORNEAL TOPOGRAPHY PENTACAM OU (BOTH EYES) CORNEAL TOPOGRAPHY PENTACAM OU (BOTH EYES) OPHT Imaging Routine Combined forms of age-related cataract of both eyes 04/24/2022 12:46 PM EDT [facility] Work Phone: End: 12-10-2024 CT Chest WO contrast CT CHEST WO IVCON Radiology Routine Pre-operative cardiovascular examination Aortic valve disorder Paroxysmal atrial fibrillation (HCC) Atherosclerosis of stillaguamish coronary artery of [place] heart without angina pectoris Mitral valve disorder 1 Occurrences starting 11/11/2023 until 12/10/2024 [facility] Work Phone: Comment on above: 1 Occurrences starting 11/11/2023 until 12/10/2024 End: 09-16-2024 ECG COMPLETE ECG COMPLETE ECG Routine Hypertension, unspecified type Coronary artery disease involving stillaguamish coronary artery of [place] heart, unspecified whether angina present Hyperlipidemia, unspecified hyperlipidemia type 1 Occurrences starting 09/16/2023 until 09/16/2024 [facility] Work Phone: Comment on above: 1 Occurrences starting 09/16/2023 until 09/16/2024 End: 12-03-2024 ECG COMPLETE ECG COMPLETE ECG Routine Coronary artery disease with angina pectoris, unspecified vessel or lesion type, unspecified whether stillaguamish or transplanted heart (HCC) 1 Occurrences starting 12/04/2023 until 12/03/2024 [facility] Work Phone: Comment on above: 1 Occurrences starting 12/04/2023 until 12/03/2024 INTERACTIVE HEART SURGERY PROGRAM INTERACTIVE HEART SURGERY PROGRAM Procedures Routine Pre-operative cardiovascular examination Aortic valve disorder Paroxysmal atrial fibrillation (HCC) Atherosclerosis of stillagu[place] coronary artery of [place]agu[place] heart without angina pectoris Mitral valve disorder Ordered: 11/11/2023 [facility] Work Phone: Comment on above: Ordered: 11/11/2023 End: 12-10-2024 LUNG DIFFUSION CAPACITY (DLCO) LUNG DIFFUSION CAPACITY (DLCO) PFT Routine Pre-operative cardiovascular examination Aortic valve disorder Paroxysmal atrial fibrillation (HCC) Atherosclerosis of stillagu[place] coronary artery of [place] heart without angina pectoris Mitral valve disorder 1 Occurrences starting 11/11/2023 until 12/10/2024 [facility] Work Phone: Comment on above: 1 Occurrences starting 11/11/2023 until 12/10/2024 [place] miscellaneous test [facility] mis cellaneous test Lab Routine Vaginal itching Acute vaginitis Ordered: 04/21/2024 [facility] Comment on above: Ordered: 04/21/2024 Patient Education [facility] Work Phone: Patient referral [facility] Work Phone: End: 12-10-2024 SPIROMETRY BASELINE ONLY SPIROMETRY BASELINE ONLY PFT Routine Pre-operative cardiovascular examination Aortic valve disorder Paroxysmal atrial fibrillation (HCC) Atherosclerosis of stillagu[place] coronary artery of [place] heart without angina pectoris Mitral valve disorder 1 Occurrences starting 11/11/2023 until 12/10/2024 [facility] Work Phone: Comment on above: 1 Occurrences starting 11/11/2023 until 12/10/2024 End: 11-10-2024 US Carotid arteries - bilateral US CAROTID ARTERIES [facility] Vascular Lab Routine Other specified symptoms and signs involving the circulatory and respiratory systems Pre-operative cardiovascular examination Aortic valve disorder Paroxysmal atrial fibrillation (HCC) Atherosclerosis of stillagu[place] coronary artery of stillagu[place] heart without angina pectoris Mitral valve disorder 1 Occurrences starting 11/11/2023 until 11/10/2024 [facility] Work Phone: Comment on above: 1 Occurrences starting 11/11/2023 until 11/10/2024 End: 11-10-2024 US LEG VEIN MAP [facility] US LEG VEIN MAP [facility] Vascular Lab Routine Shortness of breath Pre-operative cardiovascular examination Aortic valve disorder Paroxysmal atrial fibrillation (HCC) Atherosclerosis of stillagu[place] coronary artery of stillaguamish heart without angina pectoris Mitral valve disorder 1 Occurrences starting 11/11/2023 until 11/10/2024 [facility] Work Phone: Comment on above: 1 Occurrences starting 11/11/2023 until 11/10/2024 [facility] Immunizations Immunization Date Immunization Notes Care Provider Fa cility 08-27-2022 influenza virus vacc ine, unspecified formulation Shravan Buchanan MD Work Phone: [facility] 05-30-2012 influenza virus vacc ine, unspecified formulation Franchesca Wayne MD Work Phone: [facility] 05-30-2012 pneumococcal polysaccharide vaccine, 23 valent Franchesca Wayne MD Work Phone: [facility] Payers Date Payer Category Payer Self-pay [id number] 2024 Medicare supplementa l policy (as second payer) [employer] MEDICARE SUPPLEMENT [id number] 2019 Private Health Insurance [id number] 2019 Private Health Insurance CIGKENDRICK C IGNA MEDICARE SUPPLEMENT [id number] 2019-Present [phone] [address] [place] [address] Indemnity [id number] 2019 Private Health Insurance [id number] 2016 Medicare [id number] 2016 Private Health Insurance [id number] 2011 Medicare MEDICARE MEDICAR E A AND B [id number] 2011-Present [phone] [address] [address] [place] [address] Medicare [id number] 2009 Medicare [id number] [id number]. [id number] 1959 Medicare [id number] 1959 Private Health Insurance [id number] 1946 Unknown [id number] 2.16.840.1.937684.3.579. 2.182 1946 Unknown [id number] 2.16.840.1.734987.3.579. 2.182 1946 Unknown [id number] 2.16.840.1.302970.3.579. 2.182 1946 Unknown [id number] 2.16.840.1.616285.3.579. 2.182 1946 Unknown [id number] 2.16.840.1.427222.3.579. 2.182 1946 Unknown [id number] 2.16.840.1.254211.3.579. 2.182 1946 Unknown [id number] 2.16.840.1.627891.3.579. 2.647 1946 Unknown [id number] 2.16.840.1.141652.3.579. 2.647 1946 Unknown [id number] 2.16.840.1.876042.3.579. 2.593 1946 Unknown [id number] 2.16.840.1.680887.3.579. 2.593 1946 Unknown [id number] 2.16.840.1.643045.3.579. 2.593 1946 Unknown [id number] 2.16.840.1.201825.3.579. 2.593 1946 Unknown [id number] 2.16.840.1.928674.3.579. 2.593 1946 Unknown [id number] 2.16.840.1.261388.3.579. 2.727 1946 Unknown [id number] 2.16.840.1.502714.3.579. 2.1259 1946 Unknown [id number] 2.16.840.1.631378.3.579. 2.1259 1946 Unknown [id number] 2.16.840.1.032234.3.579. 2.1259 1946 Unknown [id number] 2.16.840.1.054600.3.579. 2.1259 1946 Unknown [id number] 2.16.840.1.828653.3.579. 2.1259 1946 Unknown [id number] 2.16.840.1.964012.3.579. 2.1246 1946 Unknown [id number] 2.16.840.1.370112.3.579. 2.124 1946 Unknown [id number] 2.16.840.1.685067.3.579. 2.1246 1946 Unknown [id number] 2.16.840.1.818364.3.579. 2.124 1946 Unknown [id number] 2.16.840.1.700849.3.579. 2.1246 1946 Unknown [id number] 2.16.840.1.576594.3.579. 2.1244 1946 Unknown [id number] 2.16.840.1.471824.3.579. 2.1244 1946 Unknown [id number] 2.16.840.1.039046.3.579. 2.1244 Unknown [id number] 2.16.840.1.985550.3.579. 2.531 Unknown [id number] 2.16.840.1.532212.3.579. 2.531 Unknown [id number] 2.16.840.1.880634.3.579. 2.531 Social History Date Type Detail Facility Start: 04-28-2012 End: 01-12-2024 Tobacco smoking status NHIS Ex-smoker [facility] Start: 04-28-1986 End: 04-28-1990 History of tobacco use Current smoker [facility] Start: 04-28-1986 End: 04-28-1990 History of tobacco use Cigarette Smoker [facility] Start: 04-28-2012 End: 10-04-2024 Cigarettes smoked current (pack per day) - Reported 0.7 [facility] Start: 06-14-2016 End: 05-02-2024 Alcohol intake Current non-drinker of alcohol (finding) [facility] Start: 1945 Sex Assigned At Not on file C [facility] Start: 04-24-2022 Tobacco use and exposure Former smokeless tobacco user [facility] Work Phone: Start: 04-07-2022 End: 10-04-2024 Exposure to SARS-CoV-2 (event) Not sure [facility] Work Phone: Start: 1945 Sex Assigned At Female F [facility] Start: 10-18-2022 End: 10-04-2024 Tobacco use panel [facility] National Score (1-10 0), lower number is lower risk 70 [facility] Has the [employer], [employer], or water [employer] threatened to shut off services in your home in past 12Mo No [facility] (I/We) worried sj er (my/our) food would run out before (I/we) got money to buy more. Never true [facility] Start: 11-26-2023 End: 01-12-2024 Tobacco use and exposure Smokeless tobacco non-user [facility] Work Phone: Start: 01-12-2024 End: 10-04-2024 Alcoholic beverage intake Lifetime non-drinker (finding) [facility] Work Phone: Start: 01-20-2024 Tobacco smoking stat us NHIS Never smoked tobacco (finding) [facility] Start: 03-11-2023 Alcohol Comment Caffeine: 1-2 cups/day coffee [facility] Start: 03-06-2023 Gender identity Identifies as female gender (finding) [facility] Start: 08-28-2024 End: 08-29-2024 Sex Female (finding) [facility] Medical Equipment Procedure Code Equipment Code Equipment Original Text Equipment Identifier Dates Elan Bn Smpx P Radpq Fd Strl - [id number] Start: 05-27-2012 Sys Bncmnt Prep Kt Plg Brsh - [id number] Start: 05-27-2012 Comment on above: Description: CEMENT RESTRICTOR Stem Fem 50mm 12mm Elan Trthln - [id number] Start: 05-27-2012 Comment on above: Description: cemente d stem Aug Tib 10mm Trthln 3 Rt - [id number] Start: 05-27-2012 Comment on above: Description: AUGMENT Comp Fem 3 Rt Kn Total Stab - [id number] Start: 05-27-2012 Comment on above: Description: TS FEMU R Ins Tib 3 13mm K n X3 Cs Trthln - [id number] Start: 05-27-2012 Comment on above: Description: CS INSE RT Comp Pat 10mm 32mm Asym Trthln - [id number] Start: 05-27-2012 Comment on above: Description: PATELLA Baseplt Tib Trthln 3 Kn Total - [id number] Start: 05-27-2012 Comment on above: Description: UNIVERS AL BASEPLATE Lens Iol 0d +19. 5 Talat Uv Abs - [id number] Start: 05-01-2022 Comment on above: Description: -1.52 Lens Iol 0d +18 Talat Uv Abs - [id number] Start: 05-15-2022 Comment on above: Description: -0.34 Goals Date Patient Goal Desired Activity /State Personal health goal Personal health goal Functional Status Date Assessment Result Facility 08-29-2024 Functional status Patient at Baseline [facility] Work Phone: 11-09-2023 Functional Status N/A [facility] Mental Status Date Assessment Result Facility 08-29-2024 Cognitive function Cognitive Sta tus Patient at Baseline [facility] Work Phone: Clinical Notes 01-16-2022 to 10-04-2024 Víctor Wills MD - 10/04/2024 3:00 PM ESTPatient Instructions Note Date & Type Note Facility 10-04-2024 History of Present illness Narrative Subjective Cece Hubbard is a 79 y.o. female Chief Complaint Hospital Follow-up HPI Patient is in the office for follow-up for the problems noted below. She was seen in consultation by myself when she was in the hospital August 29, 2024, at that time CT of the chest revealed pleural effusion which was felt to be due to diastolic dysfunction. She was started on diuretic therapy. She has no dyspnea palpitations or chest pain. She had abdominal pain during that admission to the hospital and the patient attributed that to metoprolol. She was switched to nebivolol. She remains without any symptoms of dyspnea or chest pain no palpitations. She is scheduled for follow-up chest x-ray. She was given advised to follow-up with pulmonary medicine after that admission to the hospital. She has no underlying pulmonary disease. The pleural effusion was attributed to diastolic dysfunction. Examination today was unremarkable. Assessment/recommendations: [id number] coronary artery disease status post angioplasty of the LAD in the remote past and angioplasty of the RCA with stenting for 70% stenosis at [facility] November 2023. Patient will continue on dual antiplatelet therapy but in December 2024 she will switch Plavix to twice weekly while she continue to take Coumadin for paroxysmal atrial fibrillation. 2-left ventricular diastolic dysfunction, leading recently to pleural effusion picked up on CT scan of the abdomen in August 2024 presenting at the time with abdominal pain. She was given diuretic therapy and follow-up chest x-ray scheduled. Does not need at the present time pulmonary follow-up. 3-moderate mitral regurgitation, annual echocardiogram will be scheduled for follow-up 4-moderate aortic regurgitation, annual echocardiogram will be scheduled 5-paroxysmal atrial fibrillation it occurred once during the ACS intervention with no recurrences. Currently on warfarin 6-essential hypertension, currently under control 7-stage IIIa chronic kidney disease to be monitored and avoiding nephrotoxic medications. 8-class I obesity, encouragement provided for proper diet and exercise to keep her weight in the ideal weight range 9-dyslipidemia on high intensity statin to be monitored closely Review of Systems All other systems reviewed and are negative. Vitals: 10/04/24 1521 BP: 106/60 BP Location: Left arm Patient Position: Sitting Pulse: 56 Weight: 78.6 kg (173 lb 3.2 oz) Height: 1.6 m (5' 3 ) EKG done in office today Objective Physical Exam Constitutional: Appearance: Normal appearance. HENT: Nose: Nose normal. Neck: Vascular: No carotid bruit. Cardiovascular: Rate and Rhythm: Normal rate. Pulses: Normal pulses. Heart sounds: Normal heart sounds. Pulmonary: Effort: Pulmonary effort is normal. Abdominal: General: Bowel sounds are normal. Palpations: Abdomen is soft. Musculoskeletal: General: Normal range of motion. Cervical back: Normal range of motion. Right lower leg: No edema. Left lower leg: No edema. Skin: General: Skin is warm and dry. Neurological: General: No focal deficit present. Mental Status: She is alert. Psychiatric: Mood and Affect: Mood normal. Behavior: Behavior normal. Thought Content: Thought content normal. Judgment: Judgment normal. Allergies Diltiazem, Serina inhibitors, Gabapentin, Metoprolol, Morphine, Amiodarone, Eliquis [apixaban], Potassium, and Amlodipine Current Medications Current Outpatient Medications: atorvastatin (Lipitor) 40 mg tablet, Take 1 tablet (40 mg) by mouth once daily., Disp: , Rfl: clopidogrel (Plavix) 75 mg tablet, Take 1 tablet (75 mg) by mouth once daily., Disp: 90 tablet, Rfl: 3 doxepin (SINEquan) 10 mg capsule, Take 1 capsule (10 mg) by mouth once daily at bedtime., Disp: , Rfl: furosemide (Lasix) 40 mg tablet, Take 1 tablet (40 mg) by mouth once daily., Disp: , Rfl: hydrALAZINE (Apresoline) 25 mg tablet, Take 1 tablet (25 mg) by mouth 2 times a day., Disp: , Rfl: isosorbide mononitrate ER (Imdur) 30 mg 24 hr tablet, Take 1 tablet (30 mg) by mouth once daily. Do not crush or chew., Disp: , Rfl: liothyronine (Cytomel) 5 mcg tablet, Take 1 tablet (5 mcg) by mouth once daily., Disp: , Rfl: loperamide (Imodium) 2 mg capsule, Take 1 capsule (2 mg) by mouth 3 times a day as needed for diarrhea., Disp: , Rfl: multivitamin tablet, Take 1 tablet by mouth once daily., Disp: , Rfl: nebivolol (Bystolic) 5 mg tablet, Take 1 tablet (5 mg) by mouth once daily., Disp: , Rfl: pantoprazole (ProtoNix) 40 mg EC tablet, Take 1 tablet (40 mg) by mouth once daily in the morning. Take before meals. Do not crush, chew, or split., Disp: , Rfl: potassium chloride CR 10 mEq ER tablet, Take 1 tablet (10 mEq) by mouth once daily., Disp: , Rfl: vit C/E/zinc/lutein/zeaxanthin (OCUV[employer] ORAL), Take 1 capsule by mouth once daily., Disp: , Rfl: warfarin (Coumadin) 5 mg tablet, Take 1 tablet (5 mg) by mouth. Take as directed by [facility], Disp: , Rfl: Assessment/Plan 1. Coronary artery disease, unspecified vessel or lesion type, unspecified whether angina present, unspecified whether stillaguamish or transplanted heart CBC Basic Metabolic Panel CBC Basic Metabolic Panel 2. History of PTCA 3. Mixed hyperlipidemia Alanine Aminotransferase Aspartate Aminotransferase Lipid Panel Alanine Aminotransferase Aspartate Aminotransferase Lipid Panel 4. Stage 3 chronic kidney disease, unspecified whether stage 3a or 3b CKD (Multi) CBC Basic Metabolic Panel CBC Basic Metabolic Panel 5. Paroxysmal atrial fibrillation (Multi) ECG 12 Lead 6. Diastolic dysfunction 7. High risk medication use ECG 12 Lead 8. Pleural effusion 9. BMI 30.0-30.9,adult 10. Former smoker Scribe Attestation By signing my name below, I, Vielka Hale RN , Scribe attest that this documentation has been prepared under the direction and in the presence of Víctor Wills MD. Provider Attestation - Scribe documentation All medical record entries made by the Scribe were at my direction and personally dictated by me. I have reviewed the chart and agree that the record accurately reflects my personal performance of the history, physical exam, discussion and plan. documented in this encounter [facility] Work Phone: 10-04-2024 Instructions Vielka Hatfield RN - 10/04/2024 3:00 PM EST Please bring all medicines, vitamins, and herbal supplements with you when you come to the office. Prescriptions will not be filled unless you are compliant with your follow up appointments or have a follow up appointment scheduled as per instruction of your physician. Refills should be requested at the time of your visit. BMI was above normal measurement. Current weight: 78.6 kg (173 lb 3.2 oz) Weight change since last visit (-) denotes wt loss -1.8 lbs Weight loss needed to achieve BMI 25: 32.4 Lbs Weight loss needed to achieve BMI 30: 4.2 Lbs Provided instructions on dietary changes Provided instructions on exercise. After December 09 take plavix twice a week. Do chest xray now and have your doctor send a copy to us documented in this encounter [facility] Work Phone: 08-29-2024 Discharge summary Note Date/Time August 29, 2024 3:54pm [facility] [address] [place] [address] Discharge Summary Signed Patient: Cece Hubbard MR#: [id number] : 1945 Acct:[id number] Age/Sex: 79 / F Adm Date: 5 Loc: Room: [address] [place] [address]: Lion Shook MD Copies to: MD Lion Watters MD~ Providers Date of Discharge: 08/29/24 Discharging Provider: Lion Shook Primary Care Provider: Demarco Newell Consults: 08/28/24 20:01 Consult to Cardiology Routine Comment: Consulting Provider: Víctor Wills Reason For Exam: New Onset CHF with Pleural Effusion (right) Has Provider Been Notified: Yes Date of Notification: 08/29/24 Time of Notification: 07:58 Consult to Pulmonology Routine Comment: Consulting Provider: Elton Baron Reason For Exam: SOB with Right sided pleural effusin Has Provider Been Notified: Yes Date of Notification: 08/29/24 Time of Notification: 07:23 Consult to Occupational Therapy Routine Comment: Physician Instructions: Consult to OT for:: Evaluation and Treat Consult to Physical Therapy Routine Comment: Physician Instructions: Consult to PT for:: Evaluation and Treat Discharge Diagnosis (1) Pleural effusion: Final Diagnosis Final Discharge Diagnosis: 1. Acute on chronic diastolic heart failure 2. Right cervical effusion secondary to heart failure 3. Acute urinary tract infection 4. Atrial fibrillation currently in normal sinus rhythm. Summary Hospital Course Hospital course: Patient is a pleasant 79-year-old female with history of ischemic cardiomyopathyejection fraction of 60% on recent echocardiogram to the emergency department for not feeling well along with orthopnea. She had right-sided pleural effusionon CT scan of the lung and abdominal. Her BNP was elevated 1100+. She was seenby the numerical control machine machinist. Patient was noted to the cardiology from office practice. Her medications have been optimized. Initially in the floor she was given IV Lasix she diuresed well. She is asymptomatic from pleural effusion. She was also seen by the automation mechanic who did not think patient would need any thoracentesis rather intensifying the management of atrial fibrillation and diastolic heart failure. On the day of discharge patient was at baseline. Vital signs were stable. Physical exam was benign. The details of the hospital stay, hospital course, lab data, imaging studies, and consultants' recommendations can be found in the EHR of [facility]. The patient left hospital appropriately in stable condition. Patient has follow-up appointment with PCP in 7 days from the day of discharge. Condition Condition at Discharge: Stable Time Spent with Patient Time spent providing/coordinating discharge services (# min): 24 Discharge Plan Discharge Plan Patient Disposition: Home Activity: No Activity Restriction and Ambulate as Tolerated Diet: Regular, Low-Fat, Low-Sodium and Low-Cholesterol Instructions: Know your Meds Prescriptions: New furosemide 40 mg Tablet 40 mg PO DAILY.8A Qty: 30 1RF potassium chloride [Klor-Con M20] 20 mEq Tablet,Er Particles/Crystals 40 meq PO DAILY PRN (Reason: Hypokalemia) Qty: 30 3RF nebivolol 5 mg Tablet 5 mg PO DAILY Qty: 30 5RF nitrofurantoin monohyd/m-cryst [Macrobid] 100 mg capsule 100 mg PO BID 7 Days Qty: 14 0RF Rx Instructions: must administer with a meal/food Continued clopidogrel 75 mg tablet 75 mg PO DAILY atorvastatin 40 mg tablet 40 mg PO DAILY isosorbide mononitrate 30 mg tablet extended release 24 hr 30 mg PO DAILY hydralazine 25 mg tablet 25 mg PO BID escitalopram oxalate [Lexapro] 10 mg tablet 20 mg PO HS pantoprazole [Protonix] 40 mg tablet,delayed release (DR/EC) 40 mg PO DAILY bacitracin 500 unit/gram ointment 1 applic Eye-Both DAILY 7 Days Qty: 3.5 0RF loratadine [Claritin] 10 mg tablet 10 mg PO DAILY PRN (Reason: allergic symptoms) 7 Days Qty: 7 0RF Ocutabs Tablet 1 tab PO HS warfarin 5 mg tablet 5 mg PO HS liothyronine 5 mcg tablet 5 mcg PO DAILY loperamide [Imodium A-D] 2 mg capsule 2 mg PO HS Discontinued metoprolol succinate 25 mg tablet extended release 24 hr 25 mg PO DAILY escitalopram oxalate 20 mg tablet atorvastatin 10 tablet 40 mg PO QAM Patient Comments: Exam Physical Exam Vital Signs: Temp Pulse Resp BP Pulse Ox O2 Del Method 98.0 F 66 16 128/78 96 Room Air 08/29/24 07:41 08/29/24 11:11 08/29/24 11:11 08/29/24 11:11 08/29/24 11:11 08/29/24 11:11 Const General: cooperative, no acute distress and well hydrated Orientation: alert, awake and oriented x3 HEENT Head: normocephalic and atraumatic Face and sinus: normal facial exam and sinuses nontender Mouth: oral mucosae normal Eyes Conjunctivae: conjunctivae normal Sclera: sclerae normal Neck Thyroid: thyroid normal Carotids: normal carotid upstroke Lymphatic: no lymphadenopathy noted Resp Effort & Inspection: normal respiratory effort, able to speak in complete sentences and symmetric chest movement Auscultation: clear to auscultation bilaterally Cardio Palpation: normal PMI Rate: regular rate Rhythm: regular rhythm Heart Sounds: S1 normal and S2 normal Pulses: dorsalis pedis present GI Palpation: soft and no hepatosplenomegaly Auscultation: normal bowel sounds Skin General: no rashes or lesions noted and turgor normal Neuro General: tone normal and moves all extremities Speech: speech normal Gait: normal gait Motor: muscle tone normal throughout Sensory Exam: no sensory deficits noted Extrem General: full ROM Psych Appearance: grossly normal Mental Status: mental status grossly normal Mood: congruent mood Affect: normal affect Attitude: cooperative Judgment: judgment good Diagnostic Studies Completed and Pending Studies Pending studies at discharge: 08/28/24 14:35 Urine Culture Stat 08/29/24 05:00 ECH echo transthoracic IN AM 08/30/24 05:00 Prothrombin Time INR IN AM Complete Blood Count Auto Diff IN AM Comprehensive Metabolic Panel [CHEM] IN AM Magnesium [CHEM] IN AM 08/31/24 05:00 Prothrombin Time INR IN AM Complete Blood Count Auto Diff IN AM Comprehensive Metabolic Panel [CHEM] IN AM Magnesium [CHEM] IN AM 09/01/24 05:00 Prothrombin Time INR IN AM Complete Blood Count Auto Diff IN AM Comprehensive Metabolic Panel [CHEM] IN AM Magnesium [CHEM] IN AM 09/02/24 05:00 Prothrombin Time INR IN AM 09/03/24 05:00 Prothrombin Time INR IN AM 09/04/24 05:00 Prothrombin Time INR IN AM 09/05/24 05:00 Prothrombin Time INR IN AM 09/06/24 05:00 Prothrombin Time INR IN AM 09/07/24 05:00 Prothrombin Time INR IN AM Preliminary micro results at discharge 08/28/24 14:35 Urine Culture - Preliminary Urine - Clean-Voided Midstream 50,000 colonies/ml mixed bacterial skin contaminants 1 Day Labs on day of discharge: 08/29/24 06:12: Corrected WBC 7.9, Uncorrected WBC Count 7.9, RBC 4.39, Hgb 13.0, Hct 37.9, MCV 86.2, MCH 29.7, MCHC 34.5, RDW 16.3 H, Plt Count 251, MPV 8.5, Neut % (Auto) 62.5, Lymph % (Auto) 19.2, Walton % (Auto) 15.4, Eos % (Auto) 2.0, Baso % (Auto) 0.9, Nucleat RBC Rel Count 0.1, Neut # (Auto) 4.9, Lymph # (Auto) 1.5, Walton # (Auto) 1.2 H, Eos # (Auto) 0.2, Baso # (Auto) 0.1, PT 48.7 H, INR 4.4, PHA Creatinine Clear 37.87, Sodium 137, Potassium 4.1, Chloride 102, Carbon Dioxide 25.8, Anion Gap 13.3, BUN 23, Creatinine 1.20, Est GFR (CKD-EPI) 46.333, Glucose 100, Calcium 9.3, Magnesium 1.7 L, Total Bilirubin 0.9, AST 12 L, ALT 11, Alkaline Phosphatase 97, Total Protein 6.6, Albumin 3.7, Globulin 2.9, Albumin/Globulin Ratio 1.3, Triglycerides 107, Cholesterol 91 L, LDL Cholesterol, Calc 29, VLDL Cholesterol 21, HDL Cholesterol 41, Cholesterol/HDL Ratio 2.2, Free T4 0.99, Free T3 2.55, TSH 3rd Generation 2.68 08/28/24 17:04: Troponin I High Sens 25 H 08/28/24 13:05: PT 47.8 H, INR 4.3, B-Natriuretic Peptide 1127.0 H, Lipase 17.0 Documented By: Lion Shook MD 08/29/24 1544 Signed By: <Electronically signed by Lion Shook MD> 08/29/24 9191 [facility] Work Phone: [phone] 899-914701-19-2025 Consult note Author Elton Baron [facility] Note Date/Time August 29, 2024 2 :02pm [facility] [address] [place] [address] Pulmonology Consult Note Signed Patient: Cece Hubbard MR#: [id number] : 1945 Acct:[id number] Age/Sex: 79 / F Adm Date: 5 Loc: Room: [address] [place] [address] Type: ADM IN Attending Dr: Lion Shook MD Copies to: MD Demarco Vargas MD Mushtaq Mahmood, MD~ HPI Date/Time of Consultation: Date of Service: 08/29/2024 Time of Service: 13:56 Consulting Provider: Elton Baron Requesting Provider: Lion Shook Reason for Consult: Pleural effusion History of Present Illness History of present illness: Ms. Hubbard is a 79 year old female with history of ischemic cardiomyopathy, coronary artery disease status post PCI x 3 stents, recent diagnosis of atrial fibrillation currently on Coumadin and metoprolol recently was in [facility] for atrial fibrillation with RVR. She was managed with beta-ken and was sent home with metoprolol extended release 25 mg/day. The patient reports that for the past 3 days she had had orthopnea which she was unable to lay down flat before she gets short of breath. She also had some mild dyspnea with exertion and cough with clear sputum production that has not significantly changed from baseline. On the day of admission she had some nausea and therefore presented to the hospital for further evaluation. The chest x-ray and abdominal CT was performed which revealed right pleural effusion and hence a pulmonary consultation was requested. The patient denies significant lower extremity and denies weight changes, fever,chills or chest pain. The patient denies any prior pulmonary issues. She has smoked briefly when she was in her 40s after her divorce but does not have significant prior smoking history. Review of Systems Review of Systems All other systems reviewed & are negative unless noted below or in HPI FOR[facility]LY [facility] Medical History (Updated 08/29/24 @ 12:07 by Víctor Wills MD) Hypothyroidism CAD (coronary artery disease) Heart failure Ischemic cardiomyopathy HTN (hypertension) A-fib Social History Smoking Status: Former smoker Substance Use Type: None Meds Medications and Allergies Allergies SERINA Inhibitors Allergy (Verified 08/28/24 11:47) Rash hydrocodone (From Vicodin) Adverse Reaction (Verified 08/28/24 11:47) Nausea meperidine (From Demerol) Adverse Reaction (Verified 08/28/24 11:47) Nausea morphine Adverse Reaction (Verified 08/28/24 11:47) Nausea Home Medications atorvastatin 10 mg tablet 40 mg PO QAM 07/28/17 [History Confirmed 08/28/24] atorvastatin 40 mg tablet 40 mg PO DAILY 01/20/24 [History Confirmed 08/28/24] bacitracin 500 unit/gram eye ointment 1 applic Eye-Both DAILY 7 days #3.5 grams 01/20/24 [Rx] clopidogrel 75 mg tablet 75 mg PO DAILY 01/20/24 [History Confirmed 08/28/24] escitalopram oxalate 10 mg tablet (Lexapro) 20 mg PO HS 01/20/24 [History Confirmed 08/28/24] hydralazine 25 mg tablet 25 mg PO BID 01/20/24 [History Confirmed 08/28/24] isosorbide mononitrate 30 mg tablet,extended release 24 hr 30 mg PO DAILY 01/20/24 [History Confirmed 08/28/24] loratadine 10 mg tablet (Claritin) 10 mg PO DAILY PRN allergic symptoms 7 days #7 tabs 01/20/24 [Rx] pantoprazole 40 mg tablet,delayed release (Protonix) 40 mg PO DAILY 01/20/24 [History Confirmed 08/28/24] escitalopram oxalate 20 mg tablet mg 08/28/24 [History] liothyronine 5 mcg tablet 5 mcg PO DAILY 08/28/24 [History Confirmed 08/28/24] loperamide 2 mg capsule (Imodium A-D) 2 mg PO HS ibs-d 08/28/24 [History Confirmed 08/28/24] metoprolol succinate 25 mg tablet,extended release 24 hr 25 mg PO DAILY 08/28/24[History Confirmed 08/28/24] vitamin A-vitamin C-vit E-min tablet (Ocutabs tablet) 1 tab PO HS 08/28/24 [History Confirmed 08/28/24] warfarin 5 mg tablet 5 mg PO HS 08/28/24 [History Confirmed 08/28/24] Exam Physical Exam Vital Signs: Temp Pulse Resp BP Pulse Ox O2 Del Method 98.0 F 66 16 128/78 96 Room Air 08/29/24 07:41 08/29/24 11:11 08/29/24 11:11 08/29/24 11:11 08/29/24 11:11 08/29/24 11:11 Narrative: General: Awake and alert, appears in no acute respiratory distress HEENT: Head normocephalic atraumatic. Neck: Supple. Pulmonary: Diminished breath sounds to both lung chris without wheezing. Cardiovascular: Regular rate and rhythm. No murmurs Abdomen: Soft, nontender and nondistended. Extremities: No edema. 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 Psych: Appears appropriate without signs of anxiety or depression. Results - Pulmonology Intake and Output I&O - Last 24 Hours: Intake & Output 08/28/24 08/29/24 08/29/24 23:59 07:59 15:59 Intake Total 300 / 300 Balance 300 / 300 Weight 79.5 kg 76.6 kg Labs 08/29/24 06:12 08/29/24 06:12 Microbiology Micro: 08/28/24 14:35 Urine Culture - Preliminary Urine - Clean-Voided Midstream 50,000 colonies/ml mixed bacterial skin contaminants 1 Day 08/28/24 14:36 SARS-CoV-2, Influenza & RSV (PCR) - Final Nasopharyngeal Imaging and Cardiology Chest x-ray: Status: image reviewed by me CT scan - abdomen: Status: image reviewed by me (Lung windows with a small right pleural effusion.) Assessment/Plan (1) Pleural effusion: Plan: Noted on abdominal CT and appears to be somewhat small in a clinical setting of congestive heart failure with orthopnea and A-fib with rapid ventricular rate and elevated BNP levels. The patient received Lasix with improvement in her symptoms. She is currently on Plavix as well. At this point I think continued observation with diuresis CHF/A-fib management would be reasonable. Would benefit from repeated imaging as outpatient and reevaluate the need for thoracentesis if no improvement in her symptoms or if her pleural effusion increases in size despite the above measures. Discussed above with the patient and her at bedside. Documented By: Elton Baron MD 08/29/24 3422 Signed By: <Electronically signed by Elton Baron MD> 08/29/24 4[address] [facility] Work Phone: [phone] 468-845701-19-2025 [place] [address] Discharge Summary Signed Patient: Cece Hubbard MR#: [id number] : 1945 Acct:[id number] Age/Sex: 79 / F Adm Date: 5 Loc: Room: [address] [place] [address]: Lion Shook MD Copies to: MD Lion Watters MD~ Providers Date of Discharge: 08/29/24 Discharging Provider: Lion Shook Primary Care Provider: Demarco Newell Consults: 08/28/24 20:01 Consult to Cardiology Routine Comment: Consulting Provider: Víctor Wills Reason For Exam: New Onset CHF with Pleural Effusion (right) Has Provider Been Notified: Yes Date of Notification: 08/29/24 Time of Notification: 07:58 Consult to Pulmonology Routine Comment: Consulting Provider: Elton Baron Reason For Exam: SOB with Right sided pleural effusin Has Provider Been Notified: Yes Date of Notification: 08/29/24 Time of Notification: 07:23 Consult to Occupational Therapy Routine Comment: Physician Instructions: Consult to OT for:: Evaluation and Treat Consult to Physical Therapy Routine Comment: Physician Instructions: Consult to PT for:: Evaluation and Treat Discharge Diagnosis (1) Pleural effusion: Final Diagnosis Final Discharge Diagnosis: 1. Acute on chronic diastolic heart failure 2. Right cervical effusion secondary to heart failure 3. Acute urinary tract infection 4. Atrial fibrillation currently in normal sinus rhythm. Summary Hospital Course Hospital course: Patient is a pleasant 79-year-old female with history of ischemic cardiomyopathyejection fraction of 60% on recent echocardiogram to the emergency department for not feeling well along with orthopnea. She had right-sided pleural effusionon CT scan of the lung and abdominal. Her BNP was elevated 1100 +. She was seenby the numerical control machine machinist. Patient was noted to the cardiology from office practice. Her medications have been optimized. Initially in the floor she was given IV Lasix she diuresed well. Sheis asymptomatic from pleural effusion. She was also seen by the automation mechanic who did not think patient would need any thoracentesis rather intensifying the management of atrial fibrillation and diastolic heart failure. On the day of discharge patient was at baseline. Vital signs were stable. Physical exam was benign.The details of the hospital stay, hospital course, lab data, imaging studies, and consultants' recommendations can be found in the EHR of [facility]. The patient left hospital appropriately in stable condition. Patient has follow-up appointment with PCP in 7 days from the dayof discharge. Condition Condition at Discharge: Stable Time Spent with Patient Time spent providing/coordinating discharge services (# min): 24 Discharge Plan Discharge Plan Patient Disposition: Home Activity: No Activity Restriction and Ambulate as Tolerated Diet: Regular, Low-Fat, Low-Sodium and Low-Cholesterol Instructions: Know your Meds Prescriptions: New furosemide 40 mg Tablet 40 mg PO DAILY.8A Qty: 30 1RF potassium chloride [Klor-Con M20] 20 mEq Tablet,Er Particles/Crystals 40 meq PO DAILY PRN (Reason: Hypokalemia) Qty: 30 3RF nebivolol 5 mg Tablet 5 mg PO DAILY Qty: 30 5RF nitrofurantoin monohyd/m-cryst [Macrobid] 100 mg capsule 100 mg PO BID 7 Days Qty: 14 0RF Rx Instructions: must administer with a meal/food Continued clopidogrel 75 mg tablet 75 mg PO DAILY atorvastatin 40 mg tablet 40 mg PO DAILY isosorbide mononitrate 30 mg tablet extended release 24 hr 30 mg PO DAILY hydralazine 25 mg tablet 25 mg PO BID escitalopram oxalate [Lexapro] 10 mg tablet 20 mg PO HS pantoprazole [Protonix] 40 mg tablet,delayed release (DR/EC) 40 mg PO DAILY bacitracin 500 unit/gram ointment 1 applic Eye-Both DAILY 7 Days Qty: 3.5 0RF loratadine [Claritin] 10 mg tablet 10 mg PO DAILY PRN (Reason: allergic symptoms) 7 Days Qty: 7 0RF Ocutabs Tablet 1 tab PO HS warfarin 5 mg tablet 5 mg PO HS liothyronine 5 mcg tablet 5 mcg PO DAILY loperamide [Imodium A-D] 2 mg capsule 2 mg PO HS Discontinued metoprolol succinate 25 mg tablet extended release 24 hr 25 mg PO DAILY escitalopram oxalate 20 mg tablet atorvastatin 10 tablet 40 mg PO QAM Patient Comments: Exam Physical Exam Vital Signs: Temp Pulse Resp BP Pulse Ox O2 Del Method 98.0 F 66 16 128/78 96 Room Air 08/29/24 07:41 08/29/24 11:11 08/29/24 11:11 08/29/24 11:11 08/29/24 11:11 08/29/24 11:11 Const General: cooperative, no acute distress and well hydrated Orientation: alert, awake and oriented x3 HEENT Head: normocephalic and atraumatic Face and sinus: normal facial exam and sinuses nontender Mouth: oral mucosae normal Eyes Conjunctivae: conjunctivae normal Sclera: sclerae normal Neck Thyroid: thyroid normal Carotids: normal carotid upstroke Lymphatic: no lymphadenopathy noted Resp Effort & Inspection: normal respiratory effort, able to speak in complete sentences and symmetric chest movement Auscultation: clear to auscultation bilaterally Cardio Palpation: normal PMI Rate: regular rate Rhythm: regular rhythm Heart Sounds: S1 normal and S2 normal Pulses: dorsalis pedis present GI Palpation: soft and no hepatosplenomegaly Auscultation: normal bowel sounds Skin General: no rashes or lesions noted and turgor normal Neuro General: tone normal and moves all extremities Speech: speech normal Gait: normal gait Motor: muscle tone normal throughout Sensory Exam: no sensory deficits noted Extrem General: full ROM Psych Appearance: grossly normal Mental Status: mental status grossly normal Mood: congruent mood Affect: normal affect Attitude: cooperative Judgment: judgment good Diagnostic Studies Completed and Pending Studies Pending studies at discharge: 08/28/24 14:35 Urine Culture Stat 08/29/24 05:00 E[facility] echo transthoracic IN AM 08/30/24 05:00 Prothrombin Time INR IN AM Complete Blood Count Auto Diff IN AM Comprehensive Metabolic Panel [CHEM] IN AM Magnesium [CHEM] IN AM 08/31/24 05:00 Prothrombin Time INR IN AM Complete Blood Count Auto Diff IN AM Comprehensive Metabolic Panel [CHEM] IN AM Magnesium [CHEM] IN AM 09/01/24 05:00 Prothrombin Time INR IN AM Complete Blood Count Auto Diff IN AM Comprehensive Metabolic Panel [CHEM] IN AM Magnesium [CHEM] IN AM 09/02/24 05:00 Prothrombin Time INR IN AM 09/03/24 05:00 Prothrombin Time INR IN AM 09/04/24 05:00 Prothrombin Time INR IN AM 09/05/24 05:00 Prothrombin Time INR IN AM 09/06/24 05:00 Prothrombin Time INR IN AM 09/07/24 05:00 Prothrombin Time INR IN AM Preliminary micro results at discharge 08/28/24 14:35 Urine Culture - Preliminary Urine - Clean-Voided Midstream 50,000 colonies/ml mixed bacterial skin contaminants 1 Day Labs on day of discharge: 08/29/24 06:12: Corrected WBC 7.9, Uncorrected WBC Count 7.9, RBC 4.39, Hgb 13.0, Hct 37.9, MCV 86.2, MCH 29.7, MCHC 34.5, RDW 16.3 H, Plt Count 251, MPV 8.5, Neut % (Auto) 62.5, Lymph % (Auto) 19.2,Walton % (Auto) 15.4, Eos % (Auto) 2.0, Baso % (Auto) 0.9, Nucleat RBC Rel Count 0.1, Neut # (Auto) 4.9, Lymph # (Auto) 1.5, Walton # (Auto) 1.2 H, Eos # (Auto) 0.2, Baso # (Auto) 0.1, PT 48.7 H, INR 4.4, PHA Creatinine Clear 37.87, Sodium 137, Potassium 4.1, Chloride 102, Carbon Dioxide 25.8, Anion Gap 13.3, BUN 23, Creatinine 1.20, Est GFR (CKD-EPI) 46.333, Glucose 100, Calcium 9.3, Magnesium 1.7 L, Total Bilirubin 0.9, AST 12 L, ALT 11, Alkaline Phosphatase 97, Total Protein 6.6, Albumin 3.7, Globulin 2.9, Albumin/Globulin Ratio 1.3, Triglycerides 107, Cholesterol 91 L, LDL Cholesterol, Calc 29, VLDL Cholesterol 21, HDL Cholesterol 41, Cholesterol/HDL Ratio 2.2, Free T4 0.99, Free T3 2.55, TSH 3rd Generation 2.68 08/28/24 17:04: Troponin I High Sens 25 H 08/28/24 13:05: PT 47.8 H, INR 4.3, B-Natriuretic Peptide 1127.0 H, Lipase 17.0 Documented By: Lion Shook MD 08/29/24 1544 Signed By: 08/29/24 1554 [facility]01-19-2025 Consult note Author Víctor Wills [facility] Note Date/Time August 29, 2024 1 2:09pm [facility] [address] [place] [address] Cardiology Consult Note Signed Patient: Cece Hubbard MR#: [id number] : 1945 Acct:[id number] Age/Sex: 79 / F Adm Date: 5 Loc: 3T Room: [address] [place] [address] Type: ADM IN Attending Dr: Lion Shook MD Copies to: MD Víctor Watters MD, [facility] Lion Shook MD~ Cardiology HPI History of Present Illness Consult Date: 08/29/24 Reason for Consult: Pleural effusion, elevated BNP HPI: Ms. Hubbard is a 79 year old female who is being seen at the request of the hospitalist. The request for what is reported as congestive heart failure. Thepatient is well-known to me and was seen in my office by myself in July 2024. The patient presented with abdominal cramping that she attributes to the metoprolol that was started recently by myself. Her workup in the ER with imaging demonstrated no abdominal pathology and her symptoms of cramping subsided however, CT of the lower chest which was included in the CT of the abdomen revealed small to moderate- sized right pleural effusion. Interestingly the plain chest x-ray did not demonstrate effusion. I did review the CT scan imaging. I agree with the interpretation. The patient's BNP just under 1200 pg/mL and troponin 25 pg/mL. The patient's cardiac history is remarkable for coronary artery disease with remote angioplasty of the LAD and more recently in November 2023 had angioplasty of the RCA at the [facility]. Her ejection fraction is noted to be normal at 65%. She has no indication of systolic heart failure. The patient has paroxysmal atrial fibrillation and has been on Coumadin therapy. There has been no breakthrough in the last 9 months. She does have moderate mitral and aortic regurgitation. Patient has stage IIIa chronic kidney disease. She is nondiabetic but has hypertension and hyperlipidemia. The patient's vital signs are presently normal. Her presentingsymptom of abdominal cramping has subsided. The patient will benefit from beingon diuretic therapy because of diastolic dysfunction. Lasix 40 mg daily will berecommended and will replace metoprolol with another beta-ken nebivolol 5 mgdaily. The patient should not stay another day in the hospital and can be discharged home today. Review of Systems Review of Systems Review of systems: Patient denies any recent symptoms of angina orthopnea PND palpitations or lowerextremity edema. She had no fever or upper respiratory tract infection. She does acknowledge symptoms of dyspnea when she climbs stairs. Her weight has notbeen increasing and she has had no recent febrile illnesses. She has no symptoms of UTI yet the urinalysis shows evidence of mild UTI. She has no dysuria or frequency in urination. [facility] Medical History (Updated 08/29/24 @ 12:07 by Víctor Wills MD) Hypothyroidism CAD (coronary artery disease) Heart failure Ischemic cardiomyopathy HTN (hypertension) A-fib Social History Smoking Status: Former smoker Substance Use Type: None Meds Medications and Allergies Allergies SERINA Inhibitors Allergy (Verified 08/28/24 11:47) Rash hydrocodone (From Vicodin) Adverse Reaction (Verified 08/28/24 11:47) Nausea meperidine (From Demerol) Adverse Reaction (Verified 08/28/24 11:47) Nausea morphine Adverse Reaction (Verified 08/28/24 11:47) Nausea Home Medications atorvastatin 10 mg tablet 40 mg PO QAM 07/28/17 [History Confirmed 08/28/24] atorvastatin 40 mg tablet 40 mg PO DAILY 01/20/24 [History Confirmed 08/28/24] bacitracin 500 unit/gram eye ointment 1 applic Eye-Both DAILY 7 days #3.5 grams 01/20/24 [Rx] clopidogrel 75 mg tablet 75 mg PO DAILY 01/20/24 [History Confirmed 08/28/24] escitalopram oxalate 10 mg tablet (Lexapro) 20 mg PO HS 01/20/24 [History Confirmed 08/28/24] hydralazine 25 mg tablet 25 mg PO BID 01/20/24 [History Confirmed 08/28/24] isosorbide mononitrate 30 mg tablet,extended release 24 hr 30 mg PO DAILY 01/20/24 [History Confirmed 08/28/24] loratadine 10 mg tablet (Claritin) 10 mg PO DAILY PRN allergic symptoms 7 days #7 tabs 01/20/24 [Rx] pantoprazole 40 mg tablet,delayed release (Protonix) 40 mg PO DAILY 01/20/24 [History Confirmed 08/28/24] escitalopram oxalate 20 mg tablet mg 08/28/24 [History] liothyronine 5 mcg tablet 5 mcg PO DAILY 08/28/24 [History Confirmed 08/28/24] loperamide 2 mg capsule (Imodium A-D) 2 mg PO HS ibs-d 08/28/24 [History Confirmed 08/28/24] metoprolol succinate 25 mg tablet,extended release 24 hr 25 mg PO DAILY 08/28/24[History Confirmed 08/28/24] vitamin A-vitamin C-vit E-min tablet (Ocutabs tablet) 1 tab PO HS 08/28/24 [History Confirmed 08/28/24] warfarin 5 mg tablet 5 mg PO HS 08/28/24 [History Confirmed 08/28/24] Exam Physical Exam Vital Signs: Temp Pulse Resp BP Pulse Ox O2 Del Method 98.0 F 66 16 128/78 96 Room Air 08/29/24 07:41 08/29/24 11:11 08/29/24 11:11 08/29/24 11:11 08/29/24 11:11 08/29/24 11:11 Const General: cooperative, healthy appearing, comfortable and no acute distress Nutritional Appearance: overweight Orientation: alert, awake and oriented x3 HEENT Head: normal to inspection, normocephalic and atraumatic Ears: hearing grossly normal bilaterally Nose: external nose normal Face and sinus: normal facial exam Eyes General: appearance normal, both eyes and all related structures Conjunctivae: conjunctivae normal Pupils: PERRL Neck Neck: normal visual inspection, trachea midline and supple Neck mass: No Thyroid: thyroid normal Carotids: normal carotid upstroke Resp Effort & Inspection: normal respiratory effort Auscultation: clear to auscultation bilaterally Cardio Jugular venous pressure: no JVD Palpation: normal PMI Rate: regular rate Rhythm: regular rhythm Heart Sounds: S1 normal, S2 normal and murmur (2/6 systolic murmur in the apex) GI Inspection: normal to inspection Palpation: soft Auscultation: normal bowel sounds Extrem General: no clubbing, cyanosis or edema Results - Cardiology Labs 08/29/24 06:12 08/29/24 06:12 Lab results: Cardiac Enzymes 08/28/24 08/29/24 Range/Units 13:05 06:12 AST 12 L 12 L (13-39) U/L B-Natriuretic Peptide 1127.0 H (5-100) pg/mL Lipids 08/29/24 Range/Units 06:12 Triglycerides 107 (0-149) mg/dL Cholesterol 91 L (140-200) mg/dL HDL Cholesterol 41 (23-92) mg/dL Cholesterol/HDL Ratio 2.2 (<5.0) CBC 08/28/24 08/29/24 Range/Units 13:05 06:12 RBC 4.40 4.39 (3.60-5.00) x10E6/uL Hgb 12.8 13.0 (11.8-15.4) g/dL Hct 38.1 37.9 (34.0-46.4) % Plt Count 263 251 (150-450) x10E3/uL Neut # (Auto) 4.9 (1.8-7.7) x10E3/uL Lymph # (Auto) 1.5 (1.00-4.8) x10E3/uL Walton # (Auto) 1.2 H (0.0-0.8) x10E3/uL Eos # (Auto) 0.2 (0.0-0.45) x10E3/uL Baso # (Auto) 0.1 (0.0-0.2) x10E3/uL Comprehensive Metabolic Panel 08/28/24 08/29/24 Range/Units 13:05 06:12 Sodium 137 137 (136-145) mmol/L Potassium 4.1 4.1 (3.5-5.1) mmol/L Chloride 104 102 (98-107) mmol/L Carbon Dioxide 23.6 25.8 (21.0-31.0) mmol/L BUN 18 23 (7-25) mg/dL Creatinine 1.16 1.20 (0.60-1.20) mg/dL Glucose 96 100 (70-100) mg/dL Calcium 9.4 9.3 (8.6-10.3) mg/dL AST 12 L 12 L (13-39) U/L ALT 13 11 (7-52) U/L Alkaline Phosphatase 104 97 (34-104) U/L Total Protein 7.0 6.6 (6.4-8.9) gm/dL Albumin 3.9 3.7 (3.5-5.7) gm/dL Intake and Output 08/28/24 08/29/24 08/29/24 23:59 07:59 15:59 Intake Total 300 / 300 Balance 300 / 300 Intake: Oral 300 / 300 Other: # Unmeasured Voids 2 Weight 79.5 kg 76.6 kg Date of Last Bowel Movement 08/28/24 Patient Weight 08/29/24 23:59 Weight 76.6 kg Lab 08/28/24 08/29/24 13:05 06:12 PT 47.8 H 48.7 H INR 4.3 4.4 EKG Interpretations EKG Attestation EKG: I reviewed this ECG and interpreted as documented below: (ECG revealed normal sinus rhythm with nonspecific ST segment abnormalities) A&P - Cardiology (1) Paroxysmal atrial fibrillation with RVR: Assessment/Problem Details: Presently in sinus rhythm and on no antiarrhythmics but on anticoagulation Plan: Continue warfarin and replace metoprolol with nebivolol Code(s): I48.0 - Paroxysmal atrial fibrillation (2) Stented coronary artery: Assessment/Problem Details: Involving the LAD remotely and the right coronary artery November 2023 at the [facility] Plan: Continue Plavix and secondary prevention measures Code(s): Z95.5 - Presence of coronary angioplasty implant and graft (3) HLD (hyperlipidemia): Plan: Continue high intensity statin Code(s): E78.5 - Hyperlipidemia, unspecified (4) HTN (hypertension), benign: Assessment/Problem Details: Presently under control Plan: Continue present medications but replace metoprolol with nebivolol 5 mg daily Code(s): I10 - Essential (primary) hypertension (5) Pleural effusion: Assessment/Problem Details: Mild and due to diastolic heart failure but not symptomatic Plan: Daily Lasix 40 mg Code(s): J90 - Pleural effusion, not elsewhere classified (6) Diastolic heart failure: Assessment/Problem Details: Ejection fraction 65% by echocardiogram November 2023. Presently minimally symptomatic Plan: Diuretic therapy since patient has pleural effusion Code(s): I50.30 - Unspecified diastolic (congestive) heart failure Documented By: Víctor Wills MD, [facility] [id number] Signed By: <Electronically signed by MD CAIN Wills> 08/29/24 9841 [facility] Work Phone: [phone] 976-107701-19-2025 Consult [place] [id number] Pulmonology Consult Note Signed Patient: Cece Hubbard MR#: [id number] : 1945 Acct:[id number] Age/Sex: 79 / F Adm Date: 5 Loc: Room: [address] [place] [address] Type: ADM IN Attending Dr: Lion Shook MD Copies to: MD Demarco Vargas MD Mushtaq Mahmood, MD~ HPI Date/Time of Consultation: Date of Service: 08/29/2024 Time of Service: 13:56 Consulting Provider: Elton Baron Requesting Provider: Lion Shook Reason for Consult: Pleural effusion History of Present Illness History of present illness: Ms. Hubbard is a 79 year old female with history of ischemic cardiomyopathy, coronary artery diseasestatus post PCI x 3 stents, recent diagnosis of atrial fibrillation currently on Coumadin and metoprolol recently was in [facility] for atrial fibrillation with RVR. She was managed with beta-ken and was sent home with metoprolol extended release 25 mg/day. The patient reports that for the past 3 days she had had orthopnea which she was unable to lay down flat before she gets short of breath. She also had some mild dyspnea with exertion and cough with clear sputum production that hasnot significantly changed from baseline. On the day of admission she had some nausea and therefore presented to the hospital for further evaluation. The chest x-ray and abdominal CT was performed which revealed right pleural effusion and hence a pulmonary consultation was requested. The patient denies significant lower extremity and denies weight changes, fever,chills or chest pain. The patient denies any prior pulmonary issues. She has smoked briefly when she was in her 40s afterher divorce but does not have significant prior smoking history. Review of Systems Review of Systems All other systems reviewed & are negative unless noted below or in HPI FOR[facility]LY [facility] Medical History (Updated 08/29/24 @ 12:07 by Víctor Wills MD) Hypothyroidism CAD (coronary artery disease) Heart failure Ischemic cardiomyopathy HTN (hypertension) A-fib Social History Smoking Status: Former smoker Substance Use Type: None Meds Medications and Allergies Allergies SERINA Inhibitors Allergy (Verified 08/28/24 11:47) Rash hydrocodone (From Vicodin) Adverse Reaction (Verified 08/28/24 11:47) Nausea meperidine (From Demerol) Adverse Reaction (Verified 08/28/24 11:47) Nausea morphine Adverse Reaction (Verified 08/28/24 11:47) Nausea Home Medications atorvastatin 10 mg tablet 40 mg PO QAM 07/28/17 [History Confirmed 08/28/24] atorvastatin 40 mg tablet 40 mg PO DAILY 01/20/24 [History Confirmed 08/28/24] bacitracin 500 unit/gram eye ointment 1 applic Eye-Both DAILY 7 days #3.5 grams 01/20/24 [Rx] clopidogrel 75 mg tablet 75 mg PO DAILY 01/20/24 [History Confirmed 08/28/24] escitalopram oxalate 10 mg tablet (Lexapro) 20 mg PO HS 01/20/24 [History Confirmed 08/28/24] hydralazine 25 mg tablet 25 mg PO BID 01/20/24 [History Confirmed 08/28/24] isosorbide mononitrate 30 mg tablet,extended release 24 hr 30 mg PO DAILY 01/20/24 [History Confirmed 08/28/24] loratadine 10 mg tablet (Claritin) 10 mg PO DAILY PRN allergic symptoms 7 days #7 tabs 01/20/24 [Rx] pantoprazole 40 mg tablet,delayed release (Protonix) 40 mg PO DAILY 01/20/24 [History Confirmed 08/28/24] escitalopram oxalate 20 mg tablet mg 08/28/24 [History] liothyronine 5 mcg tablet 5 mcg PO DAILY 08/28/24 [History Confirmed 08/28/24] loperamide 2 mg capsule (Imodium A-D) 2 mg PO HS ibs-d 08/28/24 [History Confirmed 08/28/24] metoprolol succinate 25 mg tablet,extended release 24 hr 25 mg PO DAILY 08/28/24[History Confirmed 08/28/24] vitamin A-vitamin C-vit E-min tablet (Ocutabs tablet) 1 tab PO HS 08/28/24 [History Confirmed 08/28/24] warfarin 5 mg tablet 5 mg PO HS 08/28/24 [History Confirmed 08/28/24] Exam Physical Exam Vital Signs: Temp Pulse Resp BP Pulse Ox O2 Del Method 98.0 F 66 16 128/78 96 Room Air 08/29/24 07:41 08/29/24 11:11 08/29/24 11:11 08/29/24 11:11 08/29/24 11:11 08/29/24 11:11 Narrative: General: Awake and alert, appears in no acute respiratory distress HEENT: Head normocephalic atraumatic. Neck: Supple. Pulmonary: Diminished breath sounds to both lung chris without wheezing. Cardiovascular: Regular rate and rhythm. No murmurs Abdomen: Soft, nontender and nondistended. Extremities: No edema. 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 Psych: Appears appropriate without signs of anxiety or depression. Results - Pulmonology Intake and Output I&O - Last 24 Hours: Intake & Output 08/28/24 08/29/24 08/29/24 23:59 07:59 15:59 Intake Total 300 / 300 Balance 300 / 300 Weight 79.5 kg 76.6 kg Labs 08/29/24 06:12 08/29/24 06:12 Microbiology Micro: 08/28/24 14:35 Urine Culture - Preliminary Urine - Clean-Voided Midstream 50,000 colonies/ml mixed bacterial skin contaminants 1 Day 08/28/24 14:36 SARS-CoV-2, Influenza & RSV (PCR) - Final Nasopharyngeal Imaging and Cardiology Chest x-ray: Status: image reviewed by me CT scan - abdomen: Status: image reviewed by me (Lung windows with a small right pleural effusion.) Assessment/Plan (1) Pleural effusion: Plan: Noted on abdominal CT and appears to be somewhat small in a clinical setting of congestive heart failure with orthopnea and A-fib with rapid ventricular rate and elevated BNP levels. The patient received Lasix with improvement in her symptoms. She is currently on Plavix as well. At this point I think continued observation with diuresis CHF/A-fib management would be reasonable. Would benefit from repeated imaging as outpatient and reevaluate the need for thoracentesis if no improvement in her symptoms or if her pleural effusion increases in size despite the above measures. Discussed above with the patient and her at bedside. Documented By: Elton Baron MD 08/29/24 2263 Signed By: 08/29/24 1402 [facility]01-19-2025 [place] [address] Cardiology Consult Note Signed Patient: Cece Hubbard MR#: [id number] : 1945 Acct:[id number] Age/Sex: 79 / F Adm Date: 5 Loc: 3T Room: 3G1691-9 Type: ADM IN Attending Dr: Lion Shook MD Copies to: MD Víctor Watters MD, [facility] Lion Shook MD~ Cardiology HPI History of Present Illness Consult Date: 08/29/24 Reason for Consult: Pleural effusion, elevated BNP HPI: Ms. Hubbard is a 79 year old female who is being seen at the request of the hospitalist. The requestfor what is reported as congestive heart failure. Thepatient is well-known to me and was seen in [facility] by myself in July 2024. The patient presented with abdominal cramping that she attributes to the metoprolol that was started recently by myself. Her workup in the ER with imaging demonstrated no abdominal pathology and her symptoms of cramping subsided however, CT of the lower chest which was included in the CT of the abdomen revealed small to moderate-sized right pleural effusion. Interestingly the plain chest x-ray did not demonstrate effusion. I did review the CT scan imaging. I agree with the interpretation. The patient's BNP just under 1200 pg/mL and troponin 25 pg/mL. The patient's cardiac history is remarkable for coronary artery disease with remote angioplasty of the LAD and more recently in November 2023 had angioplasty of the RCA at the [facility]. Her ejection frac tion is noted to be normal at 65%. She has no indication of systolic heart failure. The patient hasparoxysmal atrial fibrillation and has been on Coumadin therapy. There has been no breakthrough in the last 9 months. She does have moderate mitral and aortic regurgitation. Patient has stage IIIa chronic kidney disease. She is nondiabetic but has hypertension and hyperlipidemia. The patient's vital signs are presently normal. Her presentingsymptom of abdominal cramping has subsided. The patient will benefit from beingon diuretic therapy because of diastolic dysfunction. Lasix 40 mg daily will berecommended and will replace metoprolol with another beta-ken nebivolol 5 mgdaily. The patient should not stay another day in the hospital and can be discharged home today. Review of Systems Review of Systems Review of systems: Patient denies any recent symptoms of angina orthopnea PND palpitations or lowerextremity edema. She had no fever or upper respiratory tract infection. She does acknowledge symptoms of dyspnea when she climbs stairs. Her weight has notbeen increasing and she has had no recent febrile illnesses. Shehas no symptoms of UTI yet the urinalysis shows evidence of mild UTI. She has no dysuria or frequency in urination. [facility], [facility] Medical History (Updated 08/29/24 @ 12:07 by Víctor Wills MD) Hypothyroidism CAD (coronary artery disease) Heart failure Ischemic cardiomyopathy HTN (hypertension) A-fib Social History Smoking Status: Former smoker Substance Use Type: None Meds Medications and Allergies Allergies SERINA Inhibitors Allergy (Verified 08/28/24 11:47) Rash hydrocodone (From Vicodin) Adverse Reaction (Verified 08/28/24 11:47) Nausea meperidine (From Demerol) Adverse Reaction (Verified 08/28/24 11:47) Nausea morphine Adverse Reaction (Verified 08/28/24 11:47) Nausea Home Medications atorvastatin 10 mg tablet 40 mg PO QAM 07/28/17 [History Confirmed 08/28/24] atorvastatin 40 mg tablet 40 mg PO DAILY 01/20/24 [History Confirmed 08/28/24] bacitracin 500 unit/gram eye ointment 1 applic Eye-Both DAILY 7 days #3.5 grams 01/20/24 [Rx] clopidogrel 75 mg tablet 75 mg PO DAILY 01/20/24 [History Confirmed 08/28/24] escitalopram oxalate 10 mg tablet (Lexapro) 20 mg PO HS 01/20/24 [History Confirmed 08/28/24] hydralazine 25 mg tablet 25 mg PO BID 01/20/24 [History Confirmed 08/28/24] isosorbide mononitrate 30 mg tablet,extended release 24 hr 30 mg PO DAILY 01/20/24 [History Confirmed 08/28/24] loratadine 10 mg tablet (Claritin) 10 mg PO DAILY PRN allergic symptoms 7 days #7 tabs 01/20/24 [Rx] pantoprazole 40 mg tablet,delayed release (Protonix) 40 mg PO DAILY 01/20/24 [History Confirmed 08/28/24] escitalopram oxalate 20 mg tablet mg 08/28/24 [History] liothyronine 5 mcg tablet 5 mcg PO DAILY 08/28/24 [History Confirmed 08/28/24] loperamide 2 mg capsule (Imodium A-D) 2 mg PO HS ibs-d 08/28/24 [History Confirmed 08/28/24] metoprolol succinate 25 mg tablet,extended release 24 hr 25 mg PO DAILY 08/28/24[History Confirmed 08/28/24] vitamin A-vitamin C-vit E-min tablet (Ocutabs tablet) 1 tab PO HS 08/28/24 [History Confirmed 08/28/24] warfarin 5 mg tablet 5 mg PO HS 08/28/24 [History Confirmed 08/28/24] Exam Physical Exam Vital Signs: Temp Pulse Resp BP Pulse Ox O2 Del Method 98.0 F 66 16 128/78 96 Room Air 08/29/24 07:41 08/29/24 11:11 08/29/24 11:11 08/29/24 11:11 08/29/24 11:11 08/29/24 11:11 Const General: cooperative, healthy appearing, comfortable and no acute distress Nutritional Appearance: overweight Orientation: alert, awake and oriented x3 HEENT Head: normal to inspection, normocephalic and atraumatic Ears: hearing grossly normal bilaterally Nose: external nose normal Face and sinus: normal facial exam Eyes General: appearance normal, both eyes and all related structures Conjunctivae: conjunctivae normal Pupils: PERRL Neck Neck: normal visual inspection, trachea midline and supple Neck mass: No Thyroid: thyroid normal Carotids: normal carotid upstroke Resp Effort & Inspection: normal respiratory effort Auscultation: clear to auscultation bilaterally Cardio Jugular venous pressure: no JVD Palpation: normal PMI Rate: regular rate Rhythm: regular rhythm Heart Sounds: S1 normal, S2 normal and murmur (2/6 systolic murmur in the apex) GI Inspection: normal to inspection Palpation: soft Auscultation: normal bowel sounds Extrem General: no clubbing, cyanosis or edema Results - Cardiology Labs 08/29/24 06:12 08/29/24 06:12 Lab results: Cardiac Enzymes 08/28/24 08/29/24 Range/Units 13:05 06:12 AST 12 L 12 L (13-39) U/L B-Natriuretic Peptide 1127.0 H (5-100) pg/mL Lipids 08/29/24 Range/Units 06:12 Triglycerides 107 (0-149) mg/dL Cholesterol 91 L (140-200) mg/dL HDL Cholesterol 41 (23-92) mg/dL Cholesterol/HDL Ratio 2.2 (<5.0) CBC 08/28/24 08/29/24 Range/Units 13:05 06:12 RBC 4.40 4.39 (3.60-5.00) x10E6/uL Hgb 12.8 13.0 (11.8-15.4) g/dL Hct 38.1 37.9 (34.0-46.4) % Plt Count 263 251 (150-450) x10E3/uL Neut # (Auto) 4.9 (1.8-7.7) x10E3/uL Lymph # (Auto) 1.5 (1.00-4.8) x10E3/uL Walton # (Auto) 1.2 H (0.0-0.8) x10E3/uL Eos # (Auto) 0.2 (0.0-0.45) x10E3/uL Baso # (Auto) 0.1 (0.0-0.2) x10E3/uL Comprehensive Metabolic Panel 08/28/24 08/29/24 Range/Units 13:05 06:12 Sodium 137 137 (136-145) mmol/L Potassium 4.1 4.1 (3.5-5.1) mmol/L Chloride 104 102 (98-107) mmol/L Carbon Dioxide 23.6 25.8 (21.0-31.0) mmol/L BUN 18 23 (7-25) mg/dL Creatinine 1.16 1.20 (0.60-1.20) mg/dL Glucose 96 100 (70-100) mg/dL Calcium 9.4 9.3 (8.6-10.3) mg/dL AST 12 L 12 L (13-39) U/L ALT 13 11 (7-52) U/L Alkaline Phosphatase 104 97 (34-104) U/L Total Protein 7.0 6.6 (6.4-8.9) gm/dL Albumin 3.9 3.7 (3.5-5.7) gm/dL Intake and Output 08/28/24 08/29/24 08/29/24 23:59 07:59 15:59 Intake Total 300 / 300 Balance 300 / 300 Intake: Oral 300 / 300 Other: # Unmeasured Voids 2 Weight 79.5 kg 76.6 kg Date of Last Bowel Movement 08/28/24 Patient Weight 08/29/24 23:59 Weight 76.6 kg Lab 08/28/24 08/29/24 13:05 06:12 PT 47.8 H 48.7 H INR 4.3 4.4 EKG Interpretations EKG Attestation EKG: I reviewed this ECG and interpreted as documented below: (ECG revealed normal sinus rhythm with nonspecific ST segment abnormalities) A&P - Cardiology (1) Paroxysmal atrial fibrillation with RVR: Assessment/Problem Details: Presently in sinus rhythm and on no antiarrhythmics but on anticoagulation Plan: Continue warfarin and replace metoprolol with nebivolol Code(s): I48.0 - Paroxysmal atrial fibrillation (2) Stented coronary artery: Assessment/Problem Details: Involving the LAD remotely and the right coronary artery November 2023 at the [facility] Plan: Continue Plavix and secondary prevention measures Code(s): Z95.5 - Presence of coronary angioplasty implant and graft (3) HLD (hyperlipidemia): Plan: Continue high intensity statin Code(s): E78.5 - Hyperlipidemia, unspecified (4) HTN (hypertension), benign: Assessment/Problem Details: Presently under control Plan: Continue present medications but replace metoprolol with nebivolol 5 mg daily Code(s): I10 - Essential (primary) hypertension (5) Pleural effusion: Assessment/Problem Details: Mild and due to diastolic heart failure but not symptomatic Plan: Daily Lasix 40 mg Code(s): J90 - Pleural effusion, not elsewhere classified (6) Diastolic heart failure: Assessment/Problem Details: Ejection fraction 65% by echocardiogram November 2023. Presently minimally symptomatic Plan: Diuretic therapy since patient has pleural effusion Code(s): I50.30 - Unspecified diastolic (congestive) heart failure Documented By: Víctor Wills MD, [facility] 5 [id number] Signed By: 08/29/24 1209 [facility]01-18-2025 History and physical note Author iLon Shook [facility] Note Date/Time August 28, 2024 9 :30pm [facility] [address] [place] [address] Hospitalist H&P Signed Patient: Cece Hubbard MR#: [id number] : 1945 Acct:[id number] Age/Sex: 79 / F Adm Date: 5 Loc: 3T Room: [address] [place] [address] Type: ADM IN Attending Dr: Lion Shook MD Copies to: MD Lion Watters MD~ HPI DATE OF EXAMINATION: 08/28/24 CHIEF COMPLAINT: Generalized weakness with orthopnea for 2 weeks HISTORY OF PRESENT ILLNESS: Patient is a 73-year-old pleasant female with history of ischemic cardiomyopathy, coronary artery disease status post PCI x 3 stents, recent diagnosis of atrial fibrillation currently on Coumadin and metoprolol recently was in [facility] for atrial fibrillation with RVR. She was managed with beta-ken and was sent home with metoprolol extended release 25 mg/day. Since then patient has not been feeling well she became increasingly tired and noticed that she cannot sleep flat. She was getting short of breath. Her cardiac caths were done in [place] and also at [facility]. This time she felt like coming to the [facility] because of better cardiac care. In the emergency department she initially had infectious workup towards respiratory viral etiology; test were negative. She has UTI which was treated with IV ceftriaxone. Chest x-ray did mild pleural effusion but then CT scan of the lung had obvious right-sided pleural effusion. Patient was given 40 mg IV Lasix. Her blood pressure initially was high. She was put on Nitropatch and sent to the floor for further management of new onset atrial fibrillation. Her BNP was 1127. There are no other lab parameter or echocardiogram in our system. We requested medical records from outside hospital. Review of Systems Review of Systems All other systems reviewed & are negative unless noted below or in HPI Constitutional Constitutional: Denies chills and Denies headache(s) Eyes Eyes: Denies blurry vision and Denies photophobia ENT Ears, Nose, Mouth, and Throat: Denies headache(s) Cardiovascular Cardiovascular: Denies chest pain and Denies syncope Respiratory Respiratory: Denies hemoptysis Gastrointestinal Gastrointestinal: Denies hematochezia and Denies melena Musculoskeletal Musculoskeletal: Denies deformity Integumentary/Breasts Skin/Breast: Denies nail changes, Denies rash and Denies unusual bruising Neurologic Neurologic: Denies confusion, Denies convulsions, Denies headache(s), Denies memory loss and Denies syncope Psychiatric Psychiatric: Denies confusion, Denies hallucinations and Denies memory loss Endocrine Endocrine: Denies heat intolerance Hematologic/Lymphatic Hematologic/Lymphatic: Denies easy bruising [facility] Medical History (Updated 08/28/24 @ 21:25 by Lion Shook MD) HTN (hypertension) A-fib Social History Smoking Status: Former smoker Substance Use Type: None Meds Medications and Allergies Allergies SERINA Inhibitors Allergy (Verified 08/28/24 11:47) Rash hydrocodone (From Vicodin) Adverse Reaction (Verified 08/28/24 11:47) Nausea meperidine (From Demerol) Adverse Reaction (Verified 08/28/24 11:47) Nausea morphine Adverse Reaction (Verified 08/28/24 11:47) Nausea Home Medications atorvastatin 10 mg tablet 40 mg PO QAM 07/28/17 [History Confirmed 08/28/24] atorvastatin 40 mg tablet 40 mg PO DAILY 01/20/24 [History Confirmed 08/28/24] bacitracin 500 unit/gram eye ointment 1 applic Eye-Both DAILY 7 days #3.5 grams 01/20/24 [Rx] clopidogrel 75 mg tablet 75 mg PO DAILY 01/20/24 [History Confirmed 08/28/24] escitalopram oxalate 10 mg tablet (Lexapro) 20 mg PO HS 01/20/24 [History Confirmed 08/28/24] hydralazine 25 mg tablet 25 mg PO BID 01/20/24 [History Confirmed 08/28/24] isosorbide mononitrate 30 mg tablet,extended release 24 hr 30 mg PO DAILY 01/20/24 [History Confirmed 08/28/24] loratadine 10 mg tablet (Claritin) 10 mg PO DAILY PRN allergic symptoms 7 days #7 tabs 01/20/24 [Rx] pantoprazole 40 mg tablet,delayed release (Protonix) 40 mg PO DAILY 01/20/24 [History Confirmed 08/28/24] escitalopram oxalate 20 mg tablet mg 08/28/24 [History] liothyronine 5 mcg tablet 5 mcg PO DAILY 08/28/24 [History Confirmed 08/28/24] loperamide 2 mg capsule (Imodium A-D) 2 mg PO HS ibs-d 08/28/24 [History Confirmed 08/28/24] metoprolol succinate 25 mg tablet,extended release 24 hr 25 mg PO DAILY 08/28/24[History Confirmed 08/28/24] vitamin A-vitamin C-vit E-min tablet (Ocutabs tablet) 1 tab PO HS 08/28/24 [History Confirmed 08/28/24] warfarin 5 mg tablet 5 mg PO HS 08/28/24 [History Confirmed 08/28/24] Exam Physical Exam Vital Signs: Temp Pulse Resp BP Pulse Ox O2 Del Method 97.5 F L 70 16 141/85 H 95 Room Air 08/28/24 20:00 08/28/24 20:00 08/28/24 20:00 08/28/24 20:00 08/28/24 20:00 08/28/24 20:15 Const General: cooperative, no acute distress and well hydrated Orientation: alert, awake and oriented x3 HEENT Head: normocephalic and atraumatic Face and sinus: normal facial exam and sinuses nontender Mouth: oral mucosae normal Eyes Conjunctivae: conjunctivae normal Sclera: sclerae normal Neck Thyroid: thyroid normal Carotids: normal carotid upstroke Lymphatic: no lymphadenopathy noted Resp Effort & Inspection: normal respiratory effort, able to speak in complete sentences and symmetric chest movement Auscultation: clear to auscultation bilaterally Cardio Palpation: normal PMI Rate: regular rate Rhythm: regular rhythm Heart Sounds: S1 normal and S2 normal Pulses: dorsalis pedis present GI Palpation: soft and no hepatosplenomegaly Auscultation: normal bowel sounds Skin General: no rashes or lesions noted and turgor normal Neuro General: tone normal and moves all extremities Speech: speech normal Gait: normal gait Motor: muscle tone normal throughout Sensory Exam: no sensory deficits noted Extrem General: full ROM Psych Appearance: grossly normal Mental Status: mental status grossly normal Mood: congruent mood Affect: normal affect Attitude: cooperative Judgment: judgment good Results - Hospitalist H&P Lab Results Labs: Laboratory Last Values Corrected WBC 9.2 X10E3/uL (3.8-11.6) 08/28/24 13:05 RBC 4.40 x10E6/uL (3.60-5.00) 08/28/24 13:05 Hgb 12.8 g/dL (11.8-15.4) 08/28/24 13:05 Hct 38.1 % (34.0-46.4) 08/28/24 13:05 MCV 86.6 fl (80-100) 08/28/24 13:05 MCH 29.2 pg (24.7-34.3) 08/28/24 13:05 MCHC 33.7 g/dL (32.0-35.0) 08/28/24 13:05 RDW 16.2 % (11.9-15.3) H 08/28/24 13:05 Plt Count 263 x10E3/uL (150-450) 08/28/24 13:05 MPV 8.9 fl (6.3-10.7) 08/28/24 13:05 PHA Creatinine Clear 40.65 08/28/24 13:05 Sodium 137 mmol/L (136-145) 08/28/24 13:05 Potassium 4.1 mmol/L (3.5-5.1) 08/28/24 13:05 Chloride 104 mmol/L (98-107) 08/28/24 13:05 Carbon Dioxide 23.6 mmol/L (21.0-31.0) 08/28/24 13:05 Anion Gap 13.5 mEq/L (6.0-15.0) 08/28/24 13:05 BUN 18 mg/dL (7-25) 08/28/24 13:05 Creatinine 1.16 mg/dL (0.60-1.20) 08/28/24 13:05 Est GFR (CKD-EPI) 48.257 mL/Min 08/28/24 13:05 Glucose 96 mg/dL (70-100) 08/28/24 13:05 Calcium 9.4 mg/dL (8.6-10.3) 08/28/24 13:05 Total Bilirubin 1.4 mg/dl (0.3-1.0) H 08/28/24 13:05 AST 12 U/L (13-39) L 08/28/24 13:05 ALT 13 U/L (7-52) 08/28/24 13:05 Alkaline Phosphatase 104 U/L (34-104) 08/28/24 13:05 Troponin I High Sens 25 ng/L (0-15) H 08/28/24 17:04 B-Natriuretic Peptide 1127.0 pg/mL (5-100) H 08/28/24 13:05 Total Protein 7.0 gm/dL (6.4-8.9) 08/28/24 13:05 Albumin 3.9 gm/dL (3.5-5.7) 08/28/24 13:05 Globulin 3.1 gm/dL 08/28/24 13:05 Albumin/Globulin Ratio 1.3 08/28/24 13:05 Lipase Cancelled 08/28/24 14:15 Urine Color Yellow (Yellow) 08/28/24 14:35 Urine Appearance Cloudy (Clear) A 08/28/24 14:35 Urine pH 5.5 (5.0-9.0) 08/28/24 14:35 Ur Specific [place] 1.024 (1.001-1.030) 08/28/24 14:35 Urine Protein 50 mg/dL (Negative) H 08/28/24 14:35 Urine Glucose (UA) Normal mg/dL (Normal) 08/28/24 14:35 Urine Ketones Negative (Negative) 08/28/24 14:35 Urine Occult Blood Negative (Negative) 08/28/24 14:35 Urine Nitrite Negative (Negative) 08/28/24 14:35 Urine Bilirubin Negative (Negative) 08/28/24 14:35 Urine Urobilinogen Normal mg/dL (Normal) 08/28/24 14:35 Ur Leukocyte Esterase 2+ (Negative) H 08/28/24 14:35 Urine RBC 5-9 /HPF (0-4) H 08/28/24 14:35 Urine WBC 10-19 /HPF (0-4) H 08/28/24 14:35 Ur Squamous Epith Cells 5-9 /HPF (0-2) H 08/28/24 14:35 Other Crystals Rare /HPF 08/28/24 14:35 Urine Bacteria Rare /HPF (None Seen) 08/28/24 14:35 Hyaline Casts 0-8 /LPF (0-8) 08/28/24 14:35 Urine Mucus 1+ /LPF A 08/28/24 14:35 SARS-CoV-2 Rap RNA(RT-PCR) Negative (Negative) 08/28/24 14:36 Microbiology Results Micro: Microbiology - Results from entire visit 08/28/24 14:36 Nasopharyngeal SARS-CoV-2, Influenza & RSV (PCR) - Final Assessment & Plan Assessment/Plan (1) Acute systolic heart failure: (2) CAD (coronary artery disease): (3) Ischemic cardiomyopathy: (4) Hypothyroidism: (5) HTN (hypertension), benign: (6) HLD (hyperlipidemia): (7) Acute UTI: (8) Pleural effusion: Plan Patient will be admitted under medical telemetry for closer monitoring of cardiorespiratory and neurovascular status. At this time she is stable and not hypoxic. Patient is unable to lay flat she is sleeping with propped up position. She received 40 mg IV Lasix and urinated in water. She is feeling much better. Will continue with her Nitropatch tonight. She will be getting daily IV Lasix 40 mg. I have ordered a transthoracic echocardiogram. I do not have any idea about her last ejection fraction. We requested outside medical records. She is on metoprolol. We like to get goal-directed medical therapy for congestive heart failure. I will consult cardiology for getting us with heart failure therapy. She does have a history of atrial fibrillation for whichshe is on Coumadin. Patient did not have anticoagulant coverage for about 5 months in the past because she could not afford Eliquis. She is on Coumadin forlast 4 weeks. Cardiology may consider cardiac cath although she does not have any chest pain, pressure at this time. Her troponin is plateaued at 25. Home medications will be resumed. Will do 3 T3-4 TSH in the morning. Routine lab will be drawn. GI prophylaxis be done with Protonix. Pharmacy will be dosing her daily Coumadin with daily INR lab. PT OT will be consulted. CODE STATUS full. Total time spent on this admission encounter was about 65 minutes. Patient agreed with the plan of care. IP vs OBS Justification Based on differential dx, clinical care plan, and risk of adverse events, if untreated, in my clinical judgement this patient requires an acute care setting as: INPATIENT because of an expectation of an over 2 midnight stay. Estimated length of stay (# of days): 3 Documented By: Lion Shook MD 08/28/241 Signed By: <Electronically signed by Lion Shook MD> 08/28/24 2301 [facility] Work Phone: 1(116) 971-392901-18-2025 [place] [address] Hospitalist H&P Signed Patient: Cece Hubbard MR#: [id number] : 1945 Acct:[id number] Age/Sex: 79 / F Adm Date: 5 Loc: 3T Room: [address] [place] [address] Type: ADM IN Attending Dr: Lion Shook MD Copies to: MD Lion Watters MD~ HPI DATE OF EXAMINATION: 08/28/24 CHIEF COMPLAINT: Generalized weakness with orthopnea for 2 weeks HISTORY OF PRESENT ILLNESS: Patient is a 73-year-old pleasant female with history of ischemic cardiomyopathy, coronary artery disease status post PCI x 3 stents, recent diagnosis of atrial fibrillation currently on Coumadin and metoprolol recently was in [facility] for atrial fibrillation with RVR. She was managed with beta-ken and was sent home with metoprolol extended release 25 mg/day. Since then patient has not been feeling well she became increasingly tired and noticed that she cannot sleep flat.She was getting short of breath. Her cardiac caths were done in [place] and also at [facility]. This time she felt like coming to the [facility] because of better cardiac care. In the emergency department she initially had infectious workup towards respiratory viral etiology; test were negative. She has UTI which was treated with IV ceftriaxone. Chest x-ray did mild pleural effusion but then CT scan of the lung had obvious right-sided pleural effusion. Patient was given 40mg IV Lasix. Her blood pressure initially was high. She was put on Nitropatch and sent to the floorfor further management of new onset atrial fibrillation. Her BNP was 1127. There are no other lab parameter or echocardiogram in our system. We requested medical records from outside hospital. Review of Systems Review of Systems All other systems reviewed & are negative unless noted below or in HPI Constitutional Constitutional: Denies chills and Denies headache(s) Eyes Eyes: Denies blurry vision and Denies photophobia ENT Ears, Nose, Mouth, and Throat: Denies headache(s) Cardiovascular Cardiovascular: Denies chest pain and Denies syncope Respiratory Respiratory: Denies hemoptysis Gastrointestinal Gastrointestinal: Denies hematochezia and Denies melena Musculoskeletal Musculoskeletal: Denies deformity Integumentary/Breasts Skin/Breast: Denies nail changes, Denies rash and Denies unusual bruising Neurologic Neurologic: Denies confusion, Denies convulsions, Denies headache(s), Denies memory loss and Deniessyncope Psychiatric Psychiatric: Denies confusion, Denies hallucinations and Denies memory loss Endocrine Endocrine: Denies heat intolerance Hematologic/Lymphatic Hematologic/Lymphatic: Denies easy bruising FOR[facility]LY [facility], [facility] Medical History (Updated 08/28/24 @ 21:25 by Lion Shook MD) HTN (hypertension) A-fib Social History Smoking Status: Former smoker Substance Use Type: None Meds Medications and Allergies Allergies SERINA Inhibitors Allergy (Verified 08/28/24 11:47) Rash hydrocodone (From Vicodin) Adverse Reaction (Verified 08/28/24 11:47) Nausea meperidine (From Demerol) Adverse Reaction (Verified 08/28/24 11:47) Nausea morphine Adverse Reaction (Verified 08/28/24 11:47) Nausea Home Medications atorvastatin 10 mg tablet 40 mg PO QAM 07/28/17 [History Confirmed 08/28/24] atorvastatin 40 mg tablet 40 mg PO DAILY 01/20/24 [History Confirmed 08/28/24] bacitracin 500 unit/gram eye ointment 1 applic Eye-Both DAILY 7 days #3.5 grams 01/20/24 [Rx] clopidogrel 75 mg tablet 75 mg PO DAILY 01/20/24 [History Confirmed 08/28/24] escitalopram oxalate 10 mg tablet (Lexapro) 20 mg PO HS 01/20/24 [History Confirmed 08/28/24] hydralazine 25 mg tablet 25 mg PO BID 01/20/24 [History Confirmed 08/28/24] isosorbide mononitrate 30 mg tablet,extended release 24 hr 30 mg PO DAILY 01/20/24 [History Confirmed 08/28/24] loratadine 10 mg tablet (Claritin) 10 mg PO DAILY PRN allergic symptoms 7 days #7 tabs 01/20/24 [Rx] pantoprazole 40 mg tablet,delayed release (Protonix) 40 mg PO DAILY 01/20/24 [History Confirmed 08/28/24] escitalopram oxalate 20 mg tablet mg 08/28/24 [History] liothyronine 5 mcg tablet 5 mcg PO DAILY 08/28/24 [History Confirmed 08/28/24] loperamide 2 mg capsule (Imodium A-D) 2 mg PO HS ibs-d 08/28/24 [History Confirmed 08/28/24] metoprolol succinate 25 mg tablet,extended release 24 hr 25 mg PO DAILY 08/28/24[History Confirmed 08/28/24] vitamin A-vitamin C-vit E-min tablet (Ocutabs tablet) 1 tab PO HS 08/28/24 [History Confirmed 08/28/24] warfarin 5 mg tablet 5 mg PO HS 08/28/24 [History Confirmed 08/28/24] Exam Physical Exam Vital Signs: Temp Pulse Resp BP Pulse Ox O2 Del Method 97.5 F L 70 16 141/85 H 95 Room Air 08/28/24 20:00 08/28/24 20:00 08/28/24 20:00 08/28/24 20:00 08/28/24 20:00 08/28/24 20:15 Const General: cooperative, no acute distress and well hydrated Orientation: alert, awake and oriented x3 HEENT Head: normocephalic and atraumatic Face and sinus: normal facial exam and sinuses nontender Mouth: oral mucosae normal Eyes Conjunctivae: conjunctivae normal Sclera: sclerae normal Neck Thyroid: thyroid normal Carotids: normal carotid upstroke Lymphatic: no lymphadenopathy noted Resp Effort & Inspection: normal respiratory effort, able to speak in complete sentences and symmetric chest movement Auscultation: clear to auscultation bilaterally Cardio Palpation: normal PMI Rate: regular rate Rhythm: regular rhythm Heart Sounds: S1 normal and S2 normal Pulses: dorsalis pedis present GI Palpation: soft and no hepatosplenomegaly Auscultation: normal bowel sounds Skin General: no rashes or lesions noted and turgor normal Neuro General: tone normal and moves all extremities Speech: speech normal Gait: normal gait Motor: muscle tone normal throughout Sensory Exam: no sensory deficits noted Extrem General: full ROM Psych Appearance: grossly normal Mental Status: mental status grossly normal Mood: congruent mood Affect: normal affect Attitude: cooperative Judgment: judgment good Results - Hospitalist H&P Lab Results Labs: Laboratory Last Values Corrected WBC 9.2 X10E3/uL (3.8-11.6) 08/28/24 13:05 RBC 4.40 x10E6/uL (3.60-5.00) 08/28/24 13:05 Hgb 12.8 g/dL (11.8-15.4) 08/28/24 13:05 Hct 38.1 % (34.0-46.4) 08/28/24 13:05 MCV 86.6 fl (80-100) 08/28/24 13:05 MCH 29.2 pg (24.7-34.3) 08/28/24 13:05 MCHC 33.7 g/dL (32.0-35.0) 08/28/24 13:05 RDW 16.2 % (11.9-15.3) H 08/28/24 13:05 Plt Count 263 x10E3/uL (150-450) 08/28/24 13:05 MPV 8.9 fl (6.3-10.7) 08/28/24 13:05 PHA Creatinine Clear 40.65 08/28/24 13:05 Sodium 137 mmol/L (136-145) 08/28/24 13:05 Potassium 4.1 mmol/L (3.5-5.1) 08/28/24 13:05 Chloride 104 mmol/L (98-107) 08/28/24 13:05 Carbon Dioxide 23.6 mmol/L (21.0-31.0) 08/28/24 13:05 Anion Gap 13.5 mEq/L (6.0-15.0) 08/28/24 13:05 BUN 18 mg/dL (7-25) 08/28/24 13:05 Creatinine 1.16 mg/dL (0.60-1.20) 08/28/24 13:05 Est GFR (CKD-EPI) 48.257 mL/Min 08/28/24 13:05 Glucose 96 mg/dL (70-100) 08/28/24 13:05 Calcium 9.4 mg/dL (8.6-10.3) 08/28/24 13:05 Total Bilirubin 1.4 mg/dl (0.3-1.0) H 08/28/24 13:05 AST 12 U/L (13-39) L 08/28/24 13:05 ALT 13 U/L (7-52) 08/28/24 13:05 Alkaline Phosphatase 104 U/L (34-104) 08/28/24 13:05 Troponin I High Sens 25 ng/L (0-15) H 08/28/24 17:04 B-Natriuretic Peptide 1127.0 pg/mL (5-100) H 08/28/24 13:05 Total Protein 7.0 gm/dL (6.4-8.9) 08/28/24 13:05 Albumin 3.9 gm/dL (3.5-5.7) 08/28/24 13:05 Globulin 3.1 gm/dL 08/28/24 13:05 Albumin/Globulin Ratio 1.3 08/28/24 13:05 Lipase Cancelled 08/28/24 14:15 Urine Color Yellow (Yellow) 08/28/24 14:35 Urine Appearance Cloudy (Clear) A 08/28/24 14:35 Urine pH 5.5 (5.0-9.0) 08/28/24 14:35 Ur Specific [place] 1.024 (1.001-1.030) 08/28/24 14:35 Urine Protein 50 mg/dL (Negative) H 08/28/24 14:35 Urine Glucose (UA) Normal mg/dL (Normal) 08/28/24 14:35 Urine Ketones Negative (Negative) 08/28/24 14:35 Urine Occult Blood Negative (Negative) 08/28/24 14:35 Urine Nitrite Negative (Negative) 08/28/24 14:35 Urine Bilirubin Negative (Negative) 08/28/24 14:35 Urine Urobilinogen Normal mg/dL (Normal) 08/28/24 14:35 Ur Leukocyte Esterase 2+ (Negative) H 08/28/24 14:35 Urine RBC 5-9 /HPF (0-4) H 08/28/24 14:35 Urine WBC 10-19 /HPF (0-4) H 08/28/24 14:35 Ur Squamous Epith Cells 5-9 /HPF (0-2) H 08/28/24 14:35 Other Crystals Rare /HPF 08/28/24 14:35 Urine Bacteria Rare /HPF (None Seen) 08/28/24 14:35 Hyaline Casts 0-8 /LPF (0-8) 08/28/24 14:35 Urine Mucus 1+ /LPF A 08/28/24 14:35 SARS-CoV-2 Rap RNA(RT-PCR) Negative (Negative) 08/28/24 14:36 Microbiology Results Micro: Microbiology - Results from entire visit 08/28/24 14:36 Nasopharyngeal SARS-CoV-2, Influenza & RSV (PCR) - Final Assessment & Plan Assessment/Plan (1) Acute systolic heart failure: (2) CAD (coronary artery disease): (3) Ischemic cardiomyopathy: (4) Hypothyroidism: (5) HTN (hypertension), benign: (6) HLD (hyperlipidemia): (7) Acute UTI: (8) Pleural effusion: Plan Patient will be admitted under medical telemetry for closer monitoring of cardiorespiratory and neurovascular status. At this time she is stable and not hypoxic. Patient is unable to lay flat she is sleeping with propped up position. She received 40 mg IV Lasix and urinated in water. She is feelingmuch better. Will continue with her Nitropatch tonight. She will be getting daily IV Lasix 40 mg. Ihave ordered a transthoracic echocardiogram. I do not have any idea about her last ejection fraction. We requested outside medical records. She is on metoprolol. We like to get goal-directed medical therapy for congestive heart failure. I will consult cardiology for getting us with heart failure therapy. She does have a history of atrial fibrillation for whichshe is on Coumadin. Patient did not have anticoagulant coverage for about 5 months in the past because she could not afford Eliquis. She is on Coumadin forlast 4 weeks. Cardiology may consider cardiac cath although she does not have any chest pain, pressure at this time. Her troponin is plateaued at 25. Home medications will be resumed. Will do 3 T3-4 TSH in the morning. Routine lab will be drawn. GI prophylaxis be done with Protonix. Pharmacy will be dosing her daily Coumadin with daily INR lab. PT OT will be consulted. CODE STATUS full. Total time spent on this admission encounter was about 65 minutes. Patient agreed with the plan of care. IP vs OBS Justification Based on differential dx, clinical care plan, and risk of adverse events, if untreated, in my clinical judgement this patient requires an acute care setting as: INPATIENT because of an expectation ofan over 2 midnight stay. Estimated length of stay (# of days): 3 Documented By: Lion Shook MD 08/28/242117 Signed By: 08/28/242129 [facility]01-18-2025 Evaluation note* Diagnosis Onset Date Resolution Status Admit Date Acute UTI acute August 28, 2024 6:27pm Diastolic heart failure acute J anuary 2024 6:27pm HLD (hyperlipidemia) acute Pj hesham 2024 6:27pm HTN (hypertension), benign acute August 28, 2024 6:27pm Paroxysmal atrial fibrillati on with RVR acute August 28 6:27pm Pleural effusion acute August 28, 2024 6:27pm Stented coronary artery acute J anuary 2024 6:27pm CAD (coronary artery disease) inacti ve August 28, 2024 6:27pm Heart failure inactive August 6:27pm Hypothyroidism inactive August 282024 6:27pm Ischemic cardiomyopathy inactive J anuary 2024 6:27pm Acute systolic heart failure deleted August 28, 2024 6:27pm [facility] Work Phone: 1(160) 780-642501-18-2025 [facility] [place] [address] [place] [address] CT Scan Report Signed Patient: Cece Hubbard MR#: [id number] : 1945 Acct:[id number] Age/Sex: 79 / F ADM Date: 5 Loc: ER Room: Type: [facility] ER Attending Dr: Copies to: Bernardo Russell DO~ Ordering Provider: Bernardo Russell DO Date of Service: 08/28/24 CT/CT abdomen pelvis w con: f CT ABDOMEN AND PELVIS WITH INTRAVENOUS CONTRAST: CLINICAL HISTORY: Shortness breath, nausea, atrial fibrillation COMPARISON: None TECHNIQUE: Spiral images were obtained through the abdomen and pelvis followingthe administration of intravenous contrast. This CT exam was performed using one or more following dose reduction techniques: Automated exposure control, adjustment of the mA and/or kV according to patient size, or use of iterative reconstruction technique. FINDINGS: Lung Bases: [Right basilar atelectasis and small to moderate size right-sided effusion. Trace left-sided effusion]. Heart appears mildly enlarged. Organs:The liver, gallbladder, spleen, adrenal glands, kidneys, and pancreas areunremarkable.[ GI: Mild retained stool throughout the colon. No evidence of bowel obstruction. Appendix is not visualized. No pericecal inflammatory changes Pelvis:[Uterus appears unremarkable. No adnexal mass. Minimal anterior bladder wall thickening possibly due to under distention. Peritoneum/Retroperitoneum:No free air or free fluid. Aorta is normal in caliber with mild scattered plaque. Abd wall/Bones:Tiny fat-containing umbilical hernia. The postsurgical changes status post L3-L5 posterior lumbar instrumentation with Junction degenerative changes greatest at L2-L3.[ CT/CT abdomen pelvis w con IMPRESSION: Negative acute inflammatory process or bowel obstruction. Right lung atelectasis and small to moderate size right-sided effusion partially visualized. Impression dictated by: Elvin Cantu M.D.08/28/2024 3:28 PM Dictation Location: [facility]- Transcribed By: [facility] 08/28/24 152 Dictated By: Elvin Cantu MD 08/28/24 1514 Signed By: 08/28/24 1528 [facility] Work Phone: 1(326) 539-634612-06-2024 History of Present illness Narrative* Víctor Wills MD - 07/16/2024 2:30 PM EST Subjective Cece Hubbard is a 79 y.o. female Chief Complaint Follow-up HPI Patient is in the office for follow-up for the problems noted below. She stopped taking the Eliquison her own due to cost and vagina spotting. She also stopped taking the the Plavix for minor GI discomfort. There is still issues were discussed at length with her. I advised her to stay away from the Eliquis because of the spotting and the fact that he had only 1 episode of atrial fibrillation butshe was advised strongly to go back on the Plavix since she had a stent in November 2023. She will do that as well and combining that with aspirin as well. Her blood pressure is under control. He has not had any blood work since her last visit which will be scheduled in the near future. She has no symp toms of palpitations or angina pectoris and no dyspnea. Assessment/recommendations: 5-mdc-pxqupr coronary artery disease status post angioplasty of the LAD in the remote past and angioplasty of the RCA with stenting for 70% stenosis at [facility] November 2023. She stopped taking the Plavix recently for GI symptoms. She was advised to go back on Plavix along with a baby aspirin, continue high intensity statin. Will continue aggressive risk factors modification. 2-left ventricular diastolic dysfunction, presently quiescent, ejection fraction 65% by echocardiogram November 2023 at [facility] 3-moderate mitral regurgitation, annual echocardiogram will be scheduled for follow-up 4-moderate aortic regurgitation, annual echocardiogram will be scheduled 5-paroxysmal atrial fibrillation it occurred once during the ACS intervention with no recurrences. She stopped taking Eliquis due to vaginal spotting 6-essential hypertension, currently under control 7-stage IIIb chronic kidney disease to be monitored and avoiding nephrotoxic medications. 8-class I obesity, encouragement provided for proper diet and exercise to keep her weight in the ideal weight range 9-dyslipidemia on high intensity statin to be monitored closely Review of Systems All other systems reviewed and are negative. Vitals: 07/16/24 1447 BP: 132/70 BP Location: Left arm Patient Position: Sitting Pulse: 66 Weight: 79.4 kg (175 lb) Height: 1.6 m (5' 3 ) Objective Physical Exam Constitutional: Appearance: Normal appearance. HENT: Nose: Nose normal. Neck: Vascular: No carotid bruit. Cardiovascular: Rate and Rhythm: Normal rate. Pulses: Normal pulses. Heart sounds: Normal heart sounds. Pulmonary: Effort: Pulmonary effort is normal. Abdominal: General: Bowel sounds are normal. Palpations: Abdomen is soft. Musculoskeletal: General: Normal range of motion. Cervical back: Normal range of motion. Right lower leg: No edema. Left lower leg: No edema. Skin: General: Skin is warm and dry. Neurological: General: No focal deficit present. Mental Status: She is alert. Psychiatric: Mood and Affect: Mood normal. Behavior: Behavior normal. Thought Content: Thought content normal. Judgment: Judgment normal. Allergies Diltiazem, Serina inhibitors, Gabapentin, Metoprolol, Morphine, Amiodarone, Eliquis [apixaban], Potassium, and Amlodipine Current Medications Current Outpatient Medications: atorvastatin (Lipitor) 40 mg tablet, Take 1 tablet (40 mg) by mouth once daily., Disp: , Rfl: escitalopram (Lexapro) 10 mg tablet, Take 1 tablet (10 mg) by mouth once daily., Disp: , Rfl: hydrALAZINE (Apresoline) 25 mg tablet, Take 1 tablet (25 mg) by mouth 2 times a day., Disp: , Rfl: isosorbide mononitrate ER (Imdur) 30 mg 24 hr tablet, Take 1 tablet (30 mg) by mouth once daily. Donot crush or chew., Disp: , Rfl: liothyronine (Cytomel) 5 mcg tablet, Take 1 tablet (5 mcg) by mouth once daily., Disp: , Rfl: pantoprazole (ProtoNix) 40 mg EC tablet, Take 1 tablet (40 mg) by mouth once daily in the morning. Take before meals. Do not crush, chew, or split., Disp: , Rfl: vit C/E/zinc/lutein/zeaxanthin ([employer] ORAL), Take 1 capsule by mouth once daily., Disp: , Rfl: aspirin 81 mg EC tablet, Take 1 tablet (81 mg) by mouth once daily., Disp: , Rfl: clopidogrel (Plavix) 75 mg tablet, Take 1 tablet (75 mg) by mouth once daily., Disp: 90 tablet, Rfl: 3 Assessment/Plan 1. Obesity, Class I, BMI 30-34.9 2. Coronary artery disease, unspecified vessel or lesion type, unspecified whether angina present, unspecified whether stillaguamish or transplanted heart clopidogrel (Plavix) 75 mg tablet aspirin 81 mg EC tablet Follow Up In Cardiology Alanine Aminotransferase Aspartate Aminotransferase Basic Metabolic Panel CBC Lipid Panel Alanine Aminotransferase Aspartate Aminotransferase Basic Metabolic Panel CBC Lipid Panel 3. Diastolic dysfunction Basic Metabolic Panel CBC Basic Metabolic Panel CBC 4. Mitral valve insufficiency, unspecified etiology 5. Aortic valve insufficiency, etiology of cardiac valve disease unspecified 6. Paroxysmal atrial fibrillation (Multi) Follow Up In Cardiology 7. History of PTCA 8. Mixed hyperlipidemia Alanine Aminotransferase Aspartate Aminotransferase Lipid Panel Alanine Aminotransferase Aspartate Aminotransferase Lipid Panel 9. Stage 3 chronic kidney disease, unspecified whether stage 3a or 3b CKD (Multi) 10. Former smoker Scribe Attestation By signing my name below, Alison Calderón LPN, Scribe attest that this documentation has been prepared under the direction and in the presence of Víctor Wills MD. Provider Attestation - Scribe documentation All medical record entries made by the Scribe were at my direction and personally dictated by me. Ihave reviewed the chart and agree that the record accurately reflects my personal performance of the history, physical exam, discussion and plan. [facility] Work Phone: [phone]) 320-582912-06-2024 Instructions* Patient Instructions* Alison Segundo LPN - 07/16/2024 2:30 PM EST Please bring all medicines, vitamins, and herbal supplements with you when you come to the office. Prescriptions will not be filled unless you are compliant with your follow up appointments or have a follow up appointment scheduled as per instruction of your physician. Refills should be requested at the time of your visit. BMI was above normal measurement. Current weight: 79.4 kg (175 lb) Weight change since last visit (-) denotes wt loss 1 lbs Weight loss needed to achieve BMI 25: 34.2 Lbs Weight loss needed to achieve BMI 30: 6 Lbs Provided instructions on dietary changes Provided instructions on exercise. Resume Plavix and Asprin Follow up 6 month Lab work documented in [facility] Work Phone: [phone]) 891-877310-30-2024 History of Present illness Narrative* Disha Cheung MD - 06/09/2024 3:20 PM EDT Cece Hubbard returns to the office today and notes that she still has the symptoms around her eyes. Her eyelids are red and itchy as well. She feels that her eyes are dry as well and she has beenusing Refresh tears. She has a dog at home. She has constant rhinorrhea that is not much better with nasal ipratropium. EXAM The patient appears comfortable in the office today. Lungs are clear to auscultation bilaterally. The oral mucosa is pink and healthy without any lesions or ulcers. The palate elevates in the midline. The nasal mucosa is pink and healthy. There is no epistaxis mucopus or nasal polyposis noted. The nasal septum is approximately in the midline. The skin is notable for redness around the eyes. IMPRESSION: periocular atopic dermatitis - try tacrolimus. Follow-up in 2 months And if her symptoms are persistent at the time we will consider patch testing to the [place] contact dermatitispanel. documented in this encounterCrittenton Behavioral [id number] History of Present illness Narrative* Stacy Henderson MD - 04/21/2024 1:45 PM EDT Images from the original note were not included. Stacy Henderson MD Obstetrics and Gynecology Patient: Cece Hubbard : 1945 (79 y.o.) Yearly Wellness Exam Date: 04/21/2024 Reason for Visit - Chief Complaint Patient presents with Gynecologic Exam Vaginal Itching LMP: [employer] Last DEXA: doesn't want it Last Mammogram: 2017 Last Pap: before 2018 Colonoscopy: 2013 Complaints: Has complaints for vaginal itching. Visit Vitals BP 130/80 Wt 178 lb BMI 31.53 kg/m OB Status Postmenopausal Smoking Status Former BSA 1.89 m History of Present Illness, Associated Treatments and Results - OB History Para Term AB Living 3 0 0 0 1 2 SAB IAB Ectopic Multiple Live Births 1 0 0 0 0 # Outcome Date GA Lbr Daniel/2nd Weight Sex Type Anes PTL Lv 3 Vag-Spont 2 Vag-Spont 1 SAB Review of Systems - Constitutional: Negative. HENT: Negative. Eyes: Negative. Respiratory: Negative. Cardiovascular: Negative. Gastrointestinal: Negative. Endocrine: Negative. Genitourinary: Negative. Musculoskeletal: Negative. Skin: Negative. Allergic/Immunologic: Negative. Neurological: Negative. Hematological: Negative. Psychiatric/Behavioral: Negative. Allergies Allergen Reactions Acetaminophen GI intolerance Amlodipine Swelling Amoxicillin Dizziness Hydrocodone GI intolerance Meperidine GI intolerance Other Serina Inhibitors Hives and Rash Hives with itching Codeine Nausea And Vomiting, Nausea Only and GI intolerance Morphine Nausea And Vomiting Other Reaction(s): severe vomiting Current Outpatient Medications: amiodarone (Pacerone) 200 MG tablet, Take 100 mg by mouth in the morning., Disp: , Rfl: amLODIPine (Norvasc) 5 MG tablet, 1 (one) time each day at the same time., Disp: , Rfl: apixaban (Eliquis) 5 MG tablet, Take 5 mg by mouth in the morning and 5 mg in the evening., Disp: ,Rfl: aspirin 81 MG EC tablet, Take 1 tablet by mouth in the morning., Disp: , Rfl: ASPIRIN 81 PO, Aspirin, Disp: , Rfl: atorvastatin (Lipitor) 10 MG tablet, take 1 tablet by oral route every day Oral, Disp: , Rfl: atorvastatin (Lipitor) 40 MG tablet, Take 40 mg by mouth in the morning., Disp: , Rfl: citalopram (CeleXA) 20 MG tablet, Take 1 tablet by mouth in the morning., Disp: , Rfl: clopidogrel (Plavix) 75 MG tablet, Take 75 mg by mouth in the morning., Disp: , Rfl: coenzyme Q-10 10 MG capsule, , Disp: , Rfl: cyclobenzaprine (Flexeril) 5 MG tablet, Take 1 tablet by mouth at bedtime., Disp: , Rfl: diclofenac (Voltaren) 75 MG EC tablet, Take 75 mg by mouth in the morning and 75 mg before bedtime., Disp: , Rfl: dilTIAZem CD (Cardizem CD) 120 MG 24 hr capsule, TAKE 1 CAPSULE BY MOUTH EVERY DAY IN THE MORNING, Disp: , Rfl: DULoxetine (Cymbalta) [address] capsule, Take 1 capsule by mouth in the morning., Disp: , Rfl: empagliflozin (Jardiance) 10 MG, Take 0.5 mg by mouth in the morning., Disp: , Rfl: escitalopram (Lexapro) 10 MG tablet, Take 10 mg by mouth in the morning., Disp: , Rfl: furosemide (Lasix) 20 MG tablet, Take 1 tablet every other day by oral route., Disp: , Rfl: gabapentin (Neurontin) 100 MG capsule, 1 capsule 1 (one) time each day at the same time., Disp: , Rfl: hydrALAZINE (Apresoline) 25 MG tablet, Take 1 tablet by mouth in the morning and 1 tablet before bedtime., Disp: , Rfl: ipratropium (Atrovent) 0.06 % nasal spray, Administer 2 sprays into each nostril in the morning and2 sprays in the evening and 2 sprays before bedtime., Disp: 15 mL, Rfl: 11 isosorbide mononitrate ER (Imdur) 30 MG 24 hr tablet, Take 30 mg by mouth in the morning., Disp: , Rfl: Krill Oil 500 MG capsule, Orally, Disp: , Rfl: liothyronine (Cytomel) 5 MCG tablet, Take 5 mcg by mouth in the morning., Disp: , Rfl: losartan (Cozaar) 100 MG tablet, Take 1 tablet by mouth in the morning., Disp: , Rfl: losartan (Cozaar) 50 MG tablet, 1 tablet Orally in AM, Disp: , Rfl: meclizine (Antivert) 25 MG tablet, 25 mg 4 (four) times a day as needed, Disp: , Rfl: meloxicam (Mobic) 15 MG tablet, Take 1 tablet by mouth in the morning., Disp: , Rfl: metoprolol succinate XL (Toprol-XL) 25 MG 24 hr tablet, TAKE 1 TABLET BY MOUTH EVERY DAY IN THE MORNING *DO NOT CRUSH OR CHEW*, Disp: , Rfl: Multiple Vitamin (MULTIVITAMIN ADULT PO), Take by mouth., Disp: , Rfl: Multiple Vitamins-Minerals (PRESERVISION AREDS 2 PO), PreserVision AREDS, Disp: , Rfl: pantoprazole (ProtoNix) 40 MG EC tablet, Take 40 mg by mouth in the morning. Take before meals., Disp: , Rfl: potassium chloride CR (Klor-Con) 10 MEQ ER tablet, Take 10 mEq by mouth Daily, Disp: , Rfl: triamcinolone (Kenalog) 0.1 % cream, Apply topically 2 (two) times a day, Disp: 30 g, Rfl: 1 Ventolin HFA 108 (90 Base) MCG/ACT inhaler, INHALE 2 PUFFS EVERY 4 HOURS NEEDED FOR SHORTNESS OFBREATH OR FOR WHEEZE, Disp: , Rfl: Past Medical History: Diagnosis Date Abdominal Arthritis 2012 Breast lump Breast screening 1995 Received clinical breast exam and referred for further evaluation based on their clinical breast exam.- h/o breast biopsy -benign Colon polyps Depression (CMS/HCC) H/O: 1 miscarriage History of abnormal cervical Pap smear .20 years unknown typ has burning procedure. All normal since History of medical problems reflux Hyperlipidemia (CMS/HCC) Hypertension (CMS/HCC) IBS (irritable bowel syndrome) Mitral valve regurgitation Overactive bladder Postmenopausal bleeding Pulmonary hypertension (CMS/HCC) Raynaud's disease Spondylosis Visit for review of DEXA scan 2009 0.5 Normal Past Surgical History: Procedure Laterality Date BREAST BIOPSY 1995 COLONOSCOPY 2014 x 4, IBS/ follow up 2017 DILATION AND CURETTAGE OF UTERUS -miscarriage ENDOMETRIAL BIOPSY 2006 EXCISION 2015 sebaceous cyst neck HM MAMMOGRAPHY 05/12/2019 BIRAD 1 JOINT REPLACEMENT Right 2011 Knee replacement PAP SMEAR 03/19/2011 NILM GA ARTHROSCOPY KNEE DIAGNOSTIC W/WO SYNOVIAL BX SPX Bilateral 2005 GA SPINE/LUMBAR DISK SURGERY 07/28/2017 L3 LT hemilaminotomy, medial facetectomy, L3-4 LT discectomy WISDOM TOOTH EXTRACTION wisdom teeth Family History Problem Relation Name Age of Onset Hypertension Mother Ovarian cancer Mother Hypertension Father Heart disease Father Esophageal cancer Son 41 Melanoma Neg Hx Social History Tobacco Use Smoking Status Former Current packs/day: 0.00 Types: Cigarettes Quit date: 1989 Years since quittin.7 Smokeless Tobacco Never Physical Exam - General appearance, mentation, extraocular movements, facial strength and movement, hearing, upper and lower extremity strength and tone, sensation to gross testing, coordination, and gait are normalor at baseline unless noted below. Physical Exam Constitutional: Appearance: Normal appearance. Genitourinary: Right Labia: No rash. Left Labia: No rash. Right Adnexa: no mass present. Left Adnexa: no mass present. No cervical lesion. Uterus is anteverted. Breasts: Right: Normal. No mass or nipple discharge. Left: Normal. No mass or nipple discharge. HENT: Head: Normocephalic and atraumatic. Cardiovascular: Rate and Rhythm: Normal rate and regular rhythm. Pulmonary: Breath sounds: Normal breath sounds. Abdominal: General: There is no distension. Palpations: Abdomen is soft. There is no mass. Tenderness: There is no abdominal tenderness. Musculoskeletal: General: Normal range of motion. Cervical back: Neck supple. Lymphadenopathy: Cervical: No cervical adenopathy. Neurological: Mental Status: She is alert and oriented to person, place, and time. Skin: General: Skin is warm and dry. Psychiatric: Mood and Affect: Mood normal. Behavior: Behavior normal. Eythemaous,inflamed vulva Fcbd dense Assessment/Plan ICD-10-CM 1. Encounter for screening mammogram for malignant neoplasm of breast Z12.31 Bilateral screening mammogram with tomosynthesis 2. Vaginal itching N89.8 triamcinolone (Kenalog) 0.1 % cream NuSwab Vaginitis Plus (VG+) Whitaker miscellaneous test 3. Encounter for gynecological examination without abnormal finding Z01.419 4. Screening for malignant neoplasm of cervix Z12.4 5. Postmenopausal Z78.0 6. 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 Acute vaginitis N76.0 terconazole (Terazol 7) 0.4 % vaginal cream NuSwab Vaginitis Plus (VG+) Whitaker miscellaneous test Cece was seen today for gynecologic exam and vaginal itching. Diagnoses and all orders for this visit: Encounter for screening mammogram for malignant neoplasm of breast (Primary) - Bilateral screening mammogram with tomosynthesis; Future Vaginal itching - triamcinolone (Kenalog) 0.1 % cream; Apply topically 2 (two) times a day - NuSwab Vaginitis Plus (VG+) - Whitaker miscellaneous test Encounter for gynecological examination without abnormal finding Screening for malignant neoplasm of cervix Postmenopausal Osteoporosis, post-menopausal (CMS/HCC) Acute vaginitis - terconazole (Terazol 7) 0.4 % vaginal cream; Insert 1 applicator into the vagina at bedtime for 7days - NuSwab Vaginitis Plus (VG+) - Whitaker miscellaneous test Other orders - GENITAL MYCOPLASMAS ERICK, SWAB Pap,cultures and exam performed. Prescriptions sent for Canidiasis and vulvitis Mammogram ordered Results can be found in MyChart in 7 days Bone health discussed Return 1 year/prn Electronically signed by Stacy Henderson MD documented in this encounterCrittenton Behavioral [id number] Telephone encounter Note* Telephone Encounter - Disha Cheung MD - 04/07/2024 4:49 PM EDT Left message on machine [facility] [id number] Miscellaneous Notes* Telephone Encounter - Disha Cheung MD - 04/07/2024 4:49 PM EDT Left message on machine documented in this encounterCrittenton Behavioral [id number] History of Present illness Narrative* Disha Cheung MD - 04/07/2024 2:20 PM EDT Cece Hubbard is a very pleasant 79 y.o. year old female who comes to the office today with the chief complaint of puffy red itchy eyes. She has had this for 4-5 months and went to derm and was told she has orbital cellulitis and was sent to the ER and was told she had and infection and given bactrim. She has been on steroid eye drops3 times and this was very helpful but then she has recurrence when she stops this. She went to Dr. Maradiaga and was told she had Blepharitis. She has light sensitivity with these episodes. She has itch of the skin around the eyes. Her chief complaint is itch of the skin around the eyes. She has more redness of the eyelid as compared to theeyeball. She has been using Aquaphor and this has been helpful. She has constant rhinorrhea that has been present for years. The patient denies having any seasonalpattern to these allergy symptoms but instead notes the symptoms tend to be present year round withlittle seasonal variation.The patient denies having any typical allergic triggers for these nasal symptoms such as animal dander, dusting, vacuuming or mowing the lawn. EXAM The patient appears comfortable in the office today. Lungs are clear to auscultation bilaterally. The oral mucosa is pink and healthy without any lesions or ulcers. The palate elevates in the midline. The nasal mucosa is pink and healthy. There is no epistaxis mucopus or nasal polyposis noted. The nasal septum is approximately in the midline. The skin is clear of any lesions, excoriations, or erythema. IMPRESSION: atopic dermatitis - atopic dermatitis eye care hydrocortisone to [facility] [place] We agreed she would apply wet compress to the periocular skin followed by hydrocortisone and then petroleum jelly twice daily when she has having a flare of her condition and twice weekly when she is doing well. Follow- up is arranged on an as needed basis. Vasomotor rhinitis - nasal ipratropium follow-up 2 months or sooner if problems arise. documented in this encounterCrittenton Behavioral [id number] History of Present illness Narrative* Víctor Wills MD - 01/12/2024 3:20 PM EDT Cardiology Consultation- New Consult Reason for referral: Coronary artery disease HPI: Cece Hubbard is a 78 y.o. female who is self-referred for cardiac care due to coronary artery disease. The patient has followed with me previously but not for the last several years. She hasprevious angioplasty of the anterior descending artery and most recently in November 2023 had angioplasty of the RCA at the [facility]. She had extensive records from recent admission to the [facility]. She was referred for open heart surgery and she was advised against surgery fearing progressive kidney disease. She also had moderate mitral regurgitation and moderate aortic regurgitation. Her presentation was mostly described as dyspnea. Following PCI of the RCA her symptoms resolved. Also had an episode of atrial fibrillation during that admission and she did not tolerate amiodarone therapy and therefore was placed only on anticoagulation with Eliquis which has been well-tolerated. Today's EKG revealed normal sinus rhythm with no abnormalities. Her examination was essentially remarkable for borderline obesity. Her medical therapy was reviewed with her and the findings of her recent admission werereviewed and shared with her as well. Her cardiac examination was unremarkable and her lungs sounded normal and had no lower extremity edema. Assessment/recommendations: 1-dxf-[id number] coronary artery disease status post angioplasty of the LAD in the remote past and angioplasty of the RCA with stenting for 70% stenosis at [facility] November 2023. She is on Plavix and high intensity statin. Will continue aggressive risk factors modification. 2-left ventricular diastolic dysfunction, presently quiescent 3-moderate mitral regurgitation, annual echocardiogram will be scheduled for follow-up 4-moderate aortic regurgitation, annual echocardiogram will be scheduled 5-paroxysmal atrial fibrillation intolerant to amiodarone therapy. She does not seem to be a good candidate for class III drugs due to renal disease. If atrial fibrillation becomes recurrent ablationwill be recommended 6-high risk medication with Eliquis and Plavix with no active bleeding 7-essential hypertension, currently under control 8-stage IIIb chronic kidney disease to be monitored and avoiding nephrotoxic medications. 9-class I obesity, encouragement provided for proper diet and exercise to keep her weight in the ideal weight range 10-dyslipidemia on high intensity statin to be monitored closely Past Medical History: She has no past medical history on file. Surgical History: She has a past surgical history that includes Cardiac catheterization; Total knee arthroplasty; andBack surgery. Family History: Family History Problem Relation Name Age of Onset Ovarian cancer Mother Heart disease Father No Known Problems Brother Social History: Social History Tobacco Use Smoking status: Former Types: Cigarettes Start date: 1993 Smokeless tobacco: Never Substance Use Topics Alcohol use: Never Allergies: Diltiazem, Serina inhibitors, Gabapentin, Metoprolol, Morphine, and Amlodipine Current Medications: Current Outpatient Medications: apixaban (Eliquis) 5 mg tablet, Take 1 tablet (5 mg) by mouth 2 times a day., Disp: , Rfl: atorvastatin (Lipitor) 40 mg tablet, Take 1 tablet (40 mg) by mouth once daily., Disp: , Rfl: empagliflozin (Jardiance) 10 mg, Take 0.5 mg by mouth once daily., Disp: , Rfl: escitalopram (Lexapro) 10 mg tablet, Take 1 tablet (10 mg) by mouth once daily., Disp: , Rfl: hydrALAZINE (Apresoline) 25 mg tablet, Take 1 tablet (25 mg) by mouth 2 times a day., Disp: , Rfl: isosorbide mononitrate ER (Imdur) 30 mg 24 hr tablet, Take 1 tablet (30 mg) by mouth once daily. Donot crush or chew., Disp: , Rfl: liothyronine (Cytomel) 5 mcg tablet, Take 1 tablet (5 mcg) by mouth once daily., Disp: , Rfl: pantoprazole (ProtoNix) 40 mg EC tablet, Take 1 tablet (40 mg) by mouth once daily in the morning. Take before meals. Do not crush, chew, or split., Disp: , Rfl: clopidogrel (Plavix) 75 mg tablet, Take 1 tablet (75 mg) by mouth once daily., Disp: , Rfl: Vitals: Vitals: 01/12/24 1533 01/12/24 1534 01/12/24 1535 BP: 120/74 120/74 118/72 BP Location: Right arm Right arm Left arm Patient Position: Sitting Sitting Sitting Pulse: 65 Weight: 78.9 kg (174 lb) Height: 1.613 m (5' 3.5 ) EKG done in office today Review of Systems All other systems reviewed and are negative. Objective Physical Exam Constitutional: Appearance: Normal appearance. HENT: Nose: Nose normal. Neck: Vascular: No carotid bruit. Cardiovascular: Rate and Rhythm: Normal rate. Pulses: Normal pulses. Heart sounds: Normal heart sounds. Pulmonary: Effort: Pulmonary effort is normal. Abdominal: General: Bowel sounds are normal. Palpations: Abdomen is soft. Musculoskeletal: General: Normal range of motion. Cervical back: Normal range of motion. Right lower leg: No edema. Left lower leg: No edema. Skin: General: Skin is warm and dry. Neurological: General: No focal deficit present. Mental Status: She is alert. Psychiatric: Mood and Affect: Mood normal. Behavior: Behavior normal. Thought Content: Thought content normal. Judgment: Judgment normal. Assessment and Plan: 1. Paroxysmal atrial fibrillation (Multi) 2. Coronary artery disease, unspecified vessel or lesion type, unspecified whether angina present, unspecified whether stillaguamish or transplanted heart 3. History of PTCA 4. Hyperlipidemia, unspecified hyperlipidemia type 5. Diastolic dysfunction 6. High risk medication use 7. Mitral valve insufficiency, unspecified etiology 8. Aortic valve insufficiency, etiology of cardiac valve disease unspecified 9. Stage 3 chronic kidney disease, unspecified whether stage 3a or 3b CKD (Multi) 10. BMI 30.0-30.9,adult 11. Former smoker Scribe Attestation By signing my name below, I, Sajan Hendrix LPN attest that this documentation has been prepared under the direction and in the presence of Víctor Wills MD. Provider Attestation - Scribe documentation All medical record entries made by the Scribe were at my direction and personally dictated by me. Melvin reviewed the chart and agree that the record accurately reflects my personal performance of the history, physical exam, discussion and plan. documented in this [facility] Work Phone: 1(878) 669-900306-03-2024 Instructions* Patient Instructions* Rosita Harris LPN - 01/12/2024 3:20 PM EDT Please bring all medicines, vitamins, and herbal supplements with you when you come to the office. Prescriptions will not be filled unless you are compliant with your follow up appointments or have a follow up appointment scheduled as per instruction of your physician. Refills should be requested at the time of your visit. Fall Prevention Education Given BMI was above normal measurement. Current weight: 78.9 kg (174 lb) Weight change since last visit (-) denotes wt loss 174 lbs Weight loss needed to achieve BMI 25: 30.9 Lbs Weight loss needed to achieve BMI 30: 2.3 Lbs Provided instructions on dietary changes Provided instructions on exercise. documented in this encounterAkron [facility] Hospital Work Phone: 1(661) 555-723405-14-2024 Instructions* Patient Instructions* Vasyl Covarrubias MD - 12/23/2023 11:02 AM EDT ORDERS: EKG OK to try off Amio watch for improvement in nausea and constipation, watch for recurrence of a fib Stat Jartdiance 10 daily Return to our office 03/24/24 11:00 AM PLAN Discussed results of: CARDIAC CATH, ECHOCARDIOGRAM, EKG, LABS , and STENT TYPE AND INDICATION FOR BLOOD THINNERS DISCUSSED Discussion: Advised to increase level of activity, Advised to call if questions, symptoms or concerns, Discussed problem list with patient and Elio. Follow up with PCP Demarco Newell MD for all non-cardiac problems Your study results and treatment plan will be discussed during a follow-up appointment. If you do not have a follow-up appointment or if you wish to discuss any issues directly with me, please call: to set-up an in-person or a virtual appointment documented in this encounterRegency Hospital [facility]05-14-2024 History of Present illness Narrative* Vasyl Covarrubias MD - 12/23/2023 10:21 AM EDT [facility] [address] [facility] Progress Note Service date 12/23/2023 IMPRESSION HFpEF, moderate MR (better after PCI) Echo 11/28/2023 +2 AI LAY (resolved ) on CKD Paroxysmal A-fib diagnosed 09/2023, started Amiodarone, has been NSR, bradycardia 40s (asymptomatic)DC'd AC Eliquis CAD PCI LAD Synergy 03/2022 ; PCI RCA Synergy 3.0 x 20 in 05/2020, PCI RCA BRITTNEY Xience 4.0x18 12/02/2023 Hypertension Hyperlipidemia, LDL 37 in 10/2023, at home on statin CKD ~ 1.4 Thyroid disease, BMI 32, GERD, depression anxiety, back and knee surgeries Card meds [employer]: Eliquis 5 twice daily, amiodarone 100 daily, Losartan 100 daily, Imdur 30 daily, hydralazine 25 twice daily, Lasix 20 daily, K-Dur 10 daily, Lipitor 40 daily Card meds: Plavix 75 daily, Eliquis 5 bid, Amiodarone 100 daily, Hydralazine 25 bid, Imdur 30, Lipitor 40. Lasix 40 and Kdur PRN but has not needed/ taken. Stat Jartdiance 10 daily ORDERS: EKG OK to try off Amio watch for improvement in nausea and constipation, watch for recurrence of a fib Stat Jartdiance 10 daily Return to our office 03/24/24 11:00 AM PLAN Discussed results of: CARDIAC CATH, ECHOCARDIOGRAM, EKG, LABS , and STENT TYPE AND INDICATION FOR BLOOD THINNERS DISCUSSED Discussion: Advised to increase level of activity, Advised to call if questions, symptoms or concerns, Discussed problem list with patient and Elio. Follow up with PCP Demarco Newell MD for all non-cardiac problems Your study results and treatment plan will be discussed during a follow-up appointment. If you do not have a follow-up appointment or if you wish to discuss any issues directly with me, please call: to set-up an in-person or a virtual appointment Rooming notes patient says she has been sick with nausea and has been dealing with constipation. Patient is wondering if the amiodarone is causing her problems BP 126/74 (BP Site: Left Arm, BP Position: Sitting, BP Cuff Size: Regular Adult) Pulse 67 Resp 16 Wt 79.8 kg (176 lb) SpO2 96% BMI 30.21 kg/m TSH 4.790 10/26/2023 Triglyceride 115 10/31/2023 HDL Cholesterol 52 10/31/2023 LDL Cholesterol 37 10/31/2023 Cholesterol, Total 112 10/31/2023 Medications Include amiodarone (PACERONE) 200 mg tablet Take a half tablet by mouth once daily. atorvastatin (LIPITOR) 40 mg tablet Take 1 tablet by mouth once daily. apixaban (ELIQUIS) 5 mg tab(s) Take 1 tablet by mouth two times a day. escitalopram oxalate (LEXAPRO) 10 mg tablet Take 1 tablet by mouth once daily. hydrALAZINE (APRESOLINE) 25 mg tablet Take 1 tablet by mouth two times a day. isosorbide mononitrate ER (IMDUR) 30 mg 24 hr tablet Take 1 tablet by mouth once daily. liothyronine (CYTOMEL) 5 mcg tablet Take 1 tablet by mouth daily before breakfast. pantoprazole DR (PROTONIX) 40 mg tablet Take 1 tablet by mouth once daily. clopidogrel (PLAVIX) 75 mg tablet Take 1 tablet by mouth once daily. aspirin 81 mg chewable tablet Take 1 tablet by mouth once daily for 6 doses. Patient should start on December 04, 2023. (Patient not taking: Reported on 12/23/2023) furosemide (LASIX) 40 mg tablet Take 1 tablet by mouth once daily as needed (for >2lb weight gain in 1 day or >5 lb in 1 week, call numerical control machine machinist if taking this). (Patient not taking: Reported on 12/23/2023) potassium chloride ER (KLOR-CON) 20 mEq tablet Take 1 tablet by mouth once daily as needed (take only if taking a dose of lasix for weight gain/swelling). (Patient not taking: Reported on 12/23/2023) LOCATION [facility]. Cece presented at this time with for a paroxysmal A-fib. Patient feels good. Is the patient having any pain? No. Pain 0 on scale of 0-10. Cece states she feelsokay. Allen Diaz MA COVID-19 screening and questionnaire reviewed with the patient. SUBJECTIVE No chest pain, pressure or tightness; No palpitation, no complaints of dizziness, syncope or near syncope; No dyspnea, No complaints of PND, orthopnea or ankle edema; Activity: adequate REVIEW OF SYSTEMS reviewed Family history and Social history reviewed PAST MEDICAL HISTORY Diagnosis Date Aortic insufficiency CAD (coronary artery disease) 04/24/2022 Chronic kidney disease Depression GERD (gastroesophageal reflux disease) HTN (hypertension) Hyperlipidemia Hypothyroidism Knee pain Mitral regurgitation Pseudophakia of both eyes Seasonal allergic rhinitis Medications as populated by [employer] without verification by MD: Cardiac medications reviewed by myselfduring appointment. @Allergies:Serina Inhibitors, Amlodipine, Codeine, Dilaudid [Hydromorphone (Bulk)], Meperidine, Morphine, and Neurontin [Gabapentin] Cardiac medications reviewed, Patient's questions answered Problem List reviewed PHYSICAL EXAM AAOX3: comfortable, not pale, no cyanosis NECK: no JVD HEART: S1+,S2+, no murmur. LUNGS:Somewhat decreased but symmetrical BS EXT: no edema, peripheral pulses This clinical note has been produced using speech recognition software and may contain errors related to that system including grammar, punctuation, spelling, gender and words and phrases that may beinappropriate. Some errors were not noted in checking the note before saving. I spent 33 minutes in the visit which includes: [id number] and eeutsja-nj-gqjr time working for this specific patient. All time was on the date of service. The total time in activities performed includes the following: preparing to see patient (e.g., review of test, previous progress notesof mineor another provider; obtaining and/or reviewing separately obtained history; performing a medicallyappropriate examination and/or evaluation, counseling and educating the patient/family/caregiver; ordering medications, tests or procedures; referring and communicating with other healthcare professionals (not separately reported); documenting clinical information in the electronic and or other health record; independently interpreting results (not separately reported) and communicating results to the patient/family/caregiver, care coordination (not separately reported. Part of the time was used to review the patient's medical record. Vasyl Covarrubias M.D. documented in this encounterReg[facility]24 NoteHNO ID: [id number] Author: ?, ?, ? Service: ? Author Type: ? Type: Progress Notes Filed: 12/11/2023 12:27 Note Text: Incidental Lung Nodule Enrollment Outreach attempt: 1st Attempt Outreach status: Complete Enrolled in Lung Nodule program: No Declined reason: Finding reviewed deemed low risk. No further work up recommended at this time. Letter/brochure notifying patient sent to patient?s home mailing address. Lung Nodule outreach: No outreach - Very small nodule, letter and brochure sent Lung Nodule Program Location: [facility]05-02-2024 Note Patient Outreach (PULMMN) CECE HUBBARD ([id number]) 1945 F Date Time Provider Department 12/11/23 VIJAY LAU During your visit today, we recorded the following information about you: Vijay Lau 12/11/2023 12:27 PM Signed Incidental Lung Nodule Enrollment Outreach attempt: 1st Attempt Outreach status: Complete Enrolled in Lung Nodule program: No Declined reason: Finding reviewed deemed low risk. No further work up recommended at this time. Letter/brochure notifying patient sent to patient?s home mailing address. Lung Nodule outreach: No outreach - Very small nodule, letter and brochure sent Lung Nodule Program Location: [address] Allergies As of Date: 12/11/2023 Noted Allergy Reaction SERINA INHIBITORS 04/28/2012 2 - Rash 4 - Hives AMLODIPINE 04/24/2022 7 - Swelling CODEINE 04/28/2012 11 - Vomiting DILAUDID (HYDROMORPHONE (BULK)) 05/12/2012 11 - Vomiting MEPERIDINE 07/28/2017 11 - Vomiting MORPHINE 10/26/2023 11 - Vomiting NEURONTIN (GABAPENTIN) 10/26/2023 1 - Mental Status Change Date Reviewed: 12/03/2023 Reviewed by: Nikia Person - Fully Assessed Prescriptions as of 12/11/2023 - amiodarone (PACERONE) 200 mg tablet Take a half tablet by mouth once daily. - aspirin 81 mg chewable tablet Take 1 tablet by mouth once daily for 6 doses. Patient should start on December 04, 2023. - atorvastatin (LIPITOR) 40 mg tablet Take 1 tablet by mouth once daily. - apixaban (ELIQUIS) 5 mg tab(s) Take 1 tablet by mouth two times a day. - escitalopram oxalate (LEXAPRO) 10 mg tablet Take 1 tablet by mouth once daily. - hydrALAZINE (APRESOLINE) 25 mg tablet Take 1 tablet by mouth two times a day. - isosorbide mononitrate ER (IMDUR) 30 mg 24 hr tablet Take 1 tablet by mouth once daily. - liothyronine (CYTOMEL) 5 mcg tablet Take 1 tablet by mouth daily before breakfast. - pantoprazole DR (PROTONIX) 40 mg tablet Take 1 tablet by mouth once daily. - clopidogrel (PLAVIX) 75 mg tablet Take 1 tablet by mouth once daily. - furosemide (LASIX) 40 mg tablet Take 1 tablet by mouth once daily as needed (for >2lb weight gain in 1 day or >5 lb in 1 week, call numerical control machine machinist if taking this). - potassium chloride ER (KLOR-CON) 20 mEq tablet Take 1 tablet by mouth once daily as needed (take only if taking a dose of lasix for weight gain/swelling). Meds Comments as of 12/04/2023: 12/04/23 The medications are managed by this patient by: PATIENT Barry Whiting [facility] Problem List As Of Date 12/11/2023 Noted Resolved Knee pain [M25.569] 06/04/2012 Chronic bilateral low back pain without sciatic*06/14/2016 HTN (hypertension) [I10] 02/22/2019 Hyperlipidemia [E78.5] 02/22/2019 Acid reflux [K21.9] 02/22/2019 Depression [F32.A] 04/24/2022 Anxiety [F41.9] 04/24/2022 CAD (coronary artery disease) [I25.10] 04/24/2022 Severe mitral regurgitation [I34.0] 10/27/2023 LAY (acute kidney injury) (HCC) [N17.9] 10/27/2023 Mitral valve insufficiency [I34.0] 10/27/2023 Atrial fibrillation (HCC) [I48.91] 10/27/2023 Obesity, Class I, BMI 30-34.9 [E66.9] 10/30/2023 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] 11/05/2023 Hematoma of right lower leg [S80.11XA] 11/05/2023 Right leg swelling [M79.89] 11/05/2023 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 Anticoagulated [Z79.01] 11/09/2023 HOLLY (dyspnea on exertion) [R06.09] 11/24/2023 Stage 3 chronic kidney disease (HCC) [N18.30] 11/24/2023 Chronic heart failure with preserved ejection f*11/24/2023 Hypothyroidism [E03.9] 11/24/2023 NSTEMI (non-ST elevated myocardial infarction) *11/25/2023 Nonrheumatic aortic valve insufficiency [I35.1] 11/26/2023 Pre-op exam [Z01.818] 11/26/2023 Anticoagulation management encounter [Z51.81, Z*11/26/2023 Dyspnea on exertion [R06.09] 11/26/2023 Atrial fibrillation, chronic (HCC) [I48.20] 11/26/2023 Encounter Status:Closed by VIJAY LUA on 12/11/23[facility] 12-11-2023 History of Present illness Narrative* Vijay Lau - 12/11/2023 12:27 PM EDT Incidental Lung Nodule Enrollment Outreach attempt: 1st Attempt Outreach status: Complete Enrolled in Lung Nodule program: No Declined reason: Finding reviewed deemed low risk. No further work up recommended at this time. Letter/brochure notifying patient sent to patient s home mailing address. Lung Nodule outreach: No outreach - Very small nodule, letter and brochure sent Lung Nodule Program Location: [address] documented in this encounterReg[facility]04-30-[facility]24 Telephone encounter Note * Telephone Encounter - Tang Fowler RN - 12/09/2023 11:52 AM EDT We are calling to check on how you are doing since our last phone call. Are you having any medical concerns we can help you with today? Pt denied medical concerns at this time. Pt confirmed pt has 24-hour nurse resource line for questions or concerns. PD nurse confirmed/verified patient's and full name. All clear. Closing statement given Tang Fowler RN [facility]04-30-2024 Miscellaneous Notes* Telephone Encounter - Tang Fowler RN - 12/09/2023 11:52 AM EDT We are calling to check on how you are doing since our last phone call. Are you having any medical concerns we can help you with today? Pt denied medical concerns at this time. Pt confirmed pt has 24-hour nurse resource line for questions or concerns. PD nurse confirmed/verified patient's and full name. All clear. Closing statement given Tang Fowler RN documented in this encounterRegency Hospital [facility]04-25-2024 NoteHNO ID: [id number] Author: ?, ?, ? Service: ? Author Type: ? Type: Progress Notes Filed: 12/04/2023 16:06 Note [facility] History of Present illness Narrative* Orly Harrison - 12/04/2023 4:05 PM EDT EKG documented in this encounterRegency Hospital [facility]04-25-2024 Telephone encounter Note * Telephone Encounter - Lui Sanchez RN - 12/04/2023 2:51 PM EDT 1. Have you noticed any increase in shortness of breath since you left the hospital? -No 2. Have you noticed any increased swelling in your feet , ankles, or stomach? (Skip for vascular pts) -No 3. Have you gained more than 2-3 pounds since discharge? (Skip for vascular & EP pts) -No 4. Have you noticed any change in your incision or wound since you were discharged? (as we want youto be aware of any signs of infection) -No 5. Are you having any increased pain since discharge? If yes: What type of pain and where? (pressure, sharp pain, dull pain, etc.) -No 6. Have you had any unplanned trips to the emergency department or hospital since you were discharged? If yes - why? -No 7. Do you have any questions about your medications? -No 8. Were you able to fill all of the prescribed medications? -Yes 9. Do you have a doctor s appointment scheduled or is someone working on getting you a follow-up appointment? -Yes All clear and closing statement given. PD RN verified patients name and date of . Lui Sanchez RN [facility]04-25-2024 Miscellaneous Notes* Telephone Encounter - Lui Sanchez RN - 12/04/2023 2:51 PM EDT 1. Have you noticed any increase in shortness of breath since you left the hospital? -No 2. Have you noticed any increased swelling in your feet , ankles, or stomach? (Skip for vascular pts) -No 3. Have you gained more than 2-3 pounds since discharge? (Skip for vascular & EP pts) -No 4. Have you noticed any change in your incision or wound since you were discharged? (as we want youto be aware of any signs of infection) -No 5. Are you having any increased pain since discharge? If yes: What type of pain and where? (pressure, sharp pain, dull pain, etc.) -No 6. Have you had any unplanned trips to the emergency department or hospital since you were discharged? If yes - why? -No 7. Do you have any questions about your medications? -No 8. Were you able to fill all of the prescribed medications? -Yes 9. Do you have a doctor s appointment scheduled or is someone working on getting you a follow-up appointment? -Yes All clear and closing statement given. PD RN verified patients name and date of . Lui Sanchez RN documented in this encounterRegency Hospital [facility]04-25-2024 NotePatient Outreach (PHRXRF) CECE HUBBARD ([id number]) 1945 F Date Time Provider Department 12/04/23 BARRY WHITING PHRXRF During your visit today, we recorded the following information about you: Barry Whiting [facility] 12/04/2023 3:22 PM Signed TRANSITION CARE MANAGEMENT (TCM) HEART FAILURE PHARMACY CONTACT Provider Action/FYI: TCM Medication Reconciliation completed for patient. See medication list table below for details. No further action required at this time Patient Workup: HF medication classes present on medication list: SERINA/ARB/ARNI NO Beta ken NO Aldosterone antagonist NO SGLT2i NO Hydralazine/Isosorbide YES - hydrALAZINE isosorbide mononitrate ER Ivabradine NO Loop diuretics YES - furosemide Digoxin NO New HF medication class(es) added this admission: No (Patient to be counseled on new medications if full medication review completed) Last documented LVEF: LV Ejection Fraction (%) Date Value 11/28/2023 63 Last documented weight: Last Wt 12/03/23 77.9 kg (171 lb 11.8 oz) Patient was sent a message via [employer] including the link to the [facility] Heart Failure education video: Yes Initial contact with patient post discharge, spoke to patient, and verified that any applicable caregiver is active in patient's medical care. Patient identified by name and . Summary: -Pt discharged from [facility] on 12/03/23. -Medication review done Full medication review completed Patient Concerns: Review and discussion of medications with patient as outlined in medication table below. Source of medication information obtained from Medication list. Dispense records from pharmacy also utilized to obtain additional medication fill history. Pt filled via [facility] bedside delivery pharmacy team prior to discharge. Patient doesn't live near [facility] - reviewed RX transfer process as majority of meds filled bedside had refills left on them. Reviewed f/u appt orders placed for cardio and nephro- pt would like to continue seeing [facility] cardio provider and will await call to schedule. No additional reported medication questions or concerns at this time. ROS: Denies new or worsening shortness of breath at rest and on exertion (orthopnea, PND, bendopnea, wheezing/coughing). Denies new or worsening symptoms of edema (abdominal, early satiety, lower extremity, or abnormal weight gain). Denies new or worsening CP, palpitations, BREWSTER, blurred vision. Denies new or worsening dizziness, lightheadedness, syncope. Denies new or worsening N/V, diarrhea, abdominal pain. Denies potential medication adverse effects. Red flag symptom(s) identified during call: No VITALS and WEIGHT HOME MONITORING: Patient does have BP monitor at home, most recent home BP/HR: N/A. Patient took meds this A.M. Patient does have scale at home, most recent home weight: N/A. History of Present Illness: The following content has been copied and pasted from patient's discharge summary. If discharge summary unavailable, After Visit Summary or last pertinent inpatient notes are copied and pasted. The Reason I was in the Hospital/Main Diagnosis: Difficulty breathing Summary of What Happened When in the Hospital: - initially considered surgery for heart vessel blockage, but determined best plan was a stent to right coronary artery (completed 12/02/[address] Tyler) - per surgery review no need for heart valve surgery at this time, continue outpatient follow up with cardiology - CT chest showed a lung nodule--should have a repeat CT chest in 12 months to monitor this Please get basic metabolic panel checked in 1 week at [facility] lab with follow up appointment (order is placed) Medication instructions: - takes apirin 81mg daily starting 01/02 for 6 more days (7th dose was given in the hospital 12/02) - continue plavix 75mg daily for indefinitely - continue eliquis twice a day - can discuss starting a medication called an SGLT2 inhibitor with cardiology in clinic (either empagliflozin or dapagliflozin) - IF you gain 2 lbs in 1 day or 5 lbs in 1 week, take a dose of lasix 40mg and potassium 20 mEq pill and call your numerical control machine machinist to tell them there is concern for fluid build up. Take these if you notice lower extremity swelling and call a numerical control machine machinist. No other significant medication changes, see medication reconciliation page. Please be sure to get scheduled with cardiac rehab. Follow up - placing a referral for follow up at [facility]. You should be seen by an AUTOMATIC CHIEF with general cardiology for follow up in 1 week and staff physician in 1 month Other Problem(s)/Diagnosis: Principal Problem: NSTEMI (non-ST elevated myocardial infarction) (HCC) Active Problems: Nonrheumatic aortic valve insufficiency Pre-op exam Anticoagulation management encounter Dyspnea on exertion (more content not included)...[facility] 12-04-2023 Miscellaneous Notes* Telephone Encounter - Lui Sanchez RN - 12/04/2023 11:43 AM EDT [place] nurse called patient for follow up from recent hospital discharge, but no answer. Left message on [employer] including 03/03 resource nurse phone number. Lui Sanchez RN documented in this encounterRegency Hospital [facility]04-25-2024 Telephone encounter Note * Telephone Encounter - Lui Sanchez RN - 12/04/2023 11:43 AM EDT [place] PD nurse called patient for follow up from recent hospital discharge, but no answer. Left message on [employer] including 03/03 resource nurse phone number. Lui Sanchez RN [facility]04-25-2024 NoteHNO ID: [id number] Author: BARRY WHITING RPh Service: ? Author Type: Pharmacist Type: Progress Notes Filed: 12/04/2023 15:22 Note Text: TRANSITION CARE MANAGEMENT (TCM) HEART FAILURE PHARMACY CONTACT Provider Action/FYI: TCM Medication Reconciliation completed for patient. See medication list table below for details. No further action required at this time Patient Workup: HF medication classes present on medication list: SERINA/ARB/ARNI NO Beta ken NO Aldosterone antagonist NO SGLT2i NO Hydralazine/Isosorbide YES - hydrALAZINE isosorbide mononitrate ER Ivabradine NO Loop diuretics YES - furosemide Digoxin NO New HF medication class(es) added this admission: No (Patient to be counseled on new medications if full medication review completed) Last documented LVEF: LV Ejection Fraction (%) Date Value 11/28/2023 63 Last documented weight: Last Wt 12/03/23 77.9 kg (171 lb 11.8 oz) Patient was sent a message via [employer] including the link to the [facility] Heart Failure education video: Yes Initial contact with patient post discharge, spoke to patient, and verified that any applicable caregiver is active in patient's medical care. Patient identified by name and . Summary: -Pt discharged from [facility] on 12/03/23. -Medication review done Full medication review completed Patient Concerns: Review and discussion of medications with patient as outlined in medication table below. Source of medication information obtained from Medication list. Dispense records from pharmacy also utilized to obtain additional medication fill history. Pt filled via [facility] bedside delivery pharmacy team prior to discharge. Patient doesn't live near [facility] - reviewed RX transfer process as majority of meds filled bedside had refills left on them. Reviewed f/u appt orders placed for cardio and nephro- pt would like to continue seeing [facility] cardio provider and will await call to schedule. No additional reported medication questions or concerns at this time. ROS: Denies new or worsening shortness of breath at rest and on exertion (orthopnea, PND, bendopnea, wheezing/coughing). Denies new or worsening symptoms of edema (abdominal, early satiety, lower extremity, or abnormal weight gain). Denies new or worsening CP, palpitations, BREWSTER, blurred vision. Denies new or worsening dizziness, lightheadedness, syncope. Denies new or worsening N/V, diarrhea, abdominal pain. Denies potential medication adverse effects. Red flag symptom(s) identified during call: No VITALS and WEIGHT HOME MONITORING: Patient does have BP monitor at home, most recent home BP/HR: N/A. Patient took meds this A.M. Patient does have scale at home, most recent home weight: N/A. History of Present Illness: The following content has been copied and pasted from patient's discharge summary. If discharge summary unavailable, After Visit Summary or last pertinent inpatient notes are copied and pasted. The Reason I was in the Hospital/Main Diagnosis: Difficulty breathing Summary of What Happened When in the Hospital: - initially considered surgery for heart vessel blockage, but determined best plan was a stent to right coronary artery (completed 12/02/[address] Tyler) - per surgery review no need for heart valve surgery at this time, continue outpatient follow up with cardiology - CT chest showed a lung nodule--should have a repeat CT chest in 12 months to monitor this Please get basic metabolic panel checked in [facility] week at [facility] lab with follow up appointment (order is placed) Medication instructions: - takes apirin 81mg daily starting 01/02 for 6 more days (7th dose was given in the hospital 12/02) - continue plavix 75mg daily for indefinitely - continue eliquis twice a day - can discuss starting a medication called an SGLT2 inhibitor with cardiology in clinic (either empagliflozin or dapagliflozin) - IF you gain 2 lbs in 1 day or 5 lbs in 1 week, take a dose of lasix 40mg and potassium 20 mEq pill and call your numerical control machine machinist to tell them there is concern for fluid build up. Take these if you notice lower extremity swelling and call a numerical control machine machinist. No other significant medication changes, see medication reconciliation page. Please be sure to get scheduled with cardiac rehab. Follow up - placing a referral for follow up at [facility]. You should be seen by an AUTOMATIC CHIEF with general cardiology for follow up in 1 week and staff physician in 1 month Other Problem(s)/Diagnosis: Principal Problem: NSTEMI (non-ST elevated myocardial infarction) (HCC) Active Problems: Nonrheumatic aortic valve insufficiency Pre-op exam Anticoagulation management encounter Dyspnea on exertion Atrial fibrillation, chronic (HCC) Resolved Problems: * No resolved hospital problems. * Operations Performed While in the Hospital: PCI to right coronary artery Medication Rec (more content not included)...[facility] 12-04-2023 History of Present illness Narrative* Barry Whiting, [facility] - 12/04/2023 9:17 AM EDT TRANSITION CARE MANAGEMENT (TCM) HEART FAILURE PHARMACY CONTACT Provider Action/FYI: TCM Medication Reconciliation completed for patient. See medication list table below for details. No further action required at this time Patient Workup: HF medication classes present on medication list: SERINA/ARB/ARNI NO Beta ken NO Aldosterone antagonist NO SGLT2i NO Hydralazine/Isosorbide YES - hydrALAZINE isosorbide mononitrate ER Ivabradine NO Loop diuretics YES - furosemide Digoxin NO New HF medication class(es) added this admission: No (Patient to be counseled on new medications iffull medication review completed) Last documented LVEF: LV Ejection Fraction (%) Date Value 11/28/2023 63 Last documented weight: Last Wt 12/03/23 77.9 kg (171 lb 11.8 oz) Patient was sent a message via [employer] including the link to the [facility] Heart Failure education video: Yes Initial contact with patient post discharge, spoke to patient, and verified that any applicable caregiver is active in patient's medical care. Patient identified by name and . Summary: -Pt discharged from [facility] on 12/03/23. -Medication review done Full medication review completed Patient Concerns: Review and discussion of medications with patient as outlined in medication table below. Source of medication information obtained from Medication list. Dispense records from pharmacy also utilized to obtain additional medication fill history. Pt filled via [facility] bedside delivery pharmacy team prior to discharge. Patient doesn't live near [facility] - reviewed RX transfer process as majority of meds filled bedside had refills left on them. Reviewed f/u appt orders placed for cardio and nephro- pt would like to continue seeing [facility] cardio provider and will await call to schedule. No additional reported medication questions or concerns at this time. ROS: Denies new or worsening shortness of breath at rest and on exertion (orthopnea, PND, bendopnea, wheezing/coughing). Denies new or worsening symptoms of edema (abdominal, early satiety, lower extremity, or abnormal weight gain). Denies new or worsening CP, palpitations, BREWSTER, blurred vision. Denies new or worsening dizziness, lightheadedness, syncope. Denies new or worsening N/V, diarrhea, abdominal pain. Denies potential medication adverse effects. Red flag symptom(s) identified during call: No VITALS and WEIGHT HOME MONITORING: Patient does have BP monitor at home, most recent home BP/HR: N/A. Patient took meds this A.M. Patient does have scale at home, most recent home weight: N/A. History of Present Illness: The following content has been copied and pasted from patient's discharge summary. If discharge summary unavailable, After Visit Summary or last pertinent inpatient notes are copied and pasted. The Reason I was in the Hospital/Main Diagnosis: Difficulty breathing Summary of What Happened When in the Hospital: - initially considered surgery for heart vessel blockage, but determined best plan was a stent to right coronary artery (completed 12/02/[address]) - per surgery review no need for heart valve surgery at this time, continue outpatient follow up with cardiology - CT chest showed a lung nodule--should have a repeat CT chest in 12 months to monitor this Please get basic metabolic panel checked in 1 week at [facility] lab with follow up appointment (order is placed) Medication instructions: - takes apirin 81mg daily starting 01/02 for 6 more days (7th dose was given in the hospital 12/02) - continue plavix 75mg daily for indefinitely - continue eliquis twice a day - can discuss starting a medication called an SGLT2 inhibitor with cardiology in clinic (either empagliflozin or dapagliflozin) - IF you gain 2 lbs in 1 day or 5 lbs in 1 week, take a dose of lasix 40mg and potassium 20 mEq pill and call your numerical control machine machinist to tell them there is concern for fluid build up. Take these if you notice lower extremity swelling and call a numerical control machine machinist. No other significant medication changes, see medication reconciliation page. Please be sure to get scheduled with cardiac rehab. Follow up - placing a referral for follow up at [facility]. You should be seen by an AUTOMATIC CHIEF with general cardiology for follow up in 1 week and staff physician in 1 month Other Problem(s)/Diagnosis: Principal Problem: NSTEMI (non-ST elevated myocardial infarction) (HCC) Active Problems: Nonrheumatic aortic valve insufficiency Pre-op exam Anticoagulation management encounter Dyspnea on exertion Atrial fibrillation, chronic (HCC) Resolved Problems: * No resolved hospital problems. * Operations Performed While in the Hospital: PCI to right coronary artery Medication Reconciliation: Legend: Stopped, New, Changed, Added to list Medication List Medication Directions Comments Action/Plan amiodarone (PACERONE) 200 mg tablet Take a half tablet by mouth once daily. upper doubler these medications at [facility] Refill issued at discharge, med order unchanged from [employer] on pharmacy dispense records with recent fill hx Patient reportedly taking as prescribed without any issues Discontinued: 12/03/2023 1:16 PM [employer] entry apixaban (ELIQUIS) 5 mg tab(s) Take 1 tablet by mouth two times a day. [facility], med order unchanged from [employer] on pharmacy dispense records with recent fill hx Patient reportedly taking as prescribed without any issues Reviewed Discontinued: 12/03/2023 1:16 PM D/c [employer] Replaced by: aspirin 81 mg chewable tablet Reviewed d/c aspirin 81 mg chewable tablet Take 1 tablet by mouth once daily for 6 doses. Patient should start on December 04, 2023. upper doubler these medications at [facility] on pharmacy dispense records with recent fill hx Patient reportedly taking as prescribed without any issues Reviewed 6 doses only atorvastatin (LIPITOR) 40 mg tablet Take 1 tablet by mouth once daily. upper doubler these medications [facility] Refill issued at discharge, med order unchanged from [employer] on pharmacy dispense records with recent fill hx Patient reportedly taking as prescribed without any issues clopidogrel (PLAVIX) 75 mg tablet Take 1 tablet by mouth once daily. upper doubler these medications at [facility] on pharmacy dispense records with recent fill hx Patient reportedly taking as prescribed without any issues Discontinued: 12/03/2023 1:16 PM [employer] dose escitalopram oxalate (LEXAPRO) 10 mg tablet Take 1 tablet by mouth once daily. upper doubler these medications at [facility] on pharmacy dispense records with recent fill hx Patient reportedly taking as prescribed without any issues Reviewed Discontinued: 12/03/2023 1:16 PM [employer] dose furosemide (LASIX) 40 mg tablet Take 1 tablet by mouth once daily as needed (for >2lb weight gain in 1 day or >5 lb in 1 week, call numerical control machine machinist if taking this). upper doubler these medications at [facility] on pharmacy dispense records with recent fill hx Reviewed change Has scale - confirmed hydrALAZINE (APRESOLINE) 25 mg tablet Take 1 tablet by mouth two times a day. upper doubler these medications at [facility] Refill issued at discharge, med order unchanged from [employer] on pharmacy dispense records with recent fill hx Patient reportedly taking as prescribed without any issues Discontinued: 12/03/2023 1:16 PM [employer] entry isosorbide mononitrate ER (IMDUR) 30 mg 24 hr tablet Take 1 tablet by mouth once daily. upper doubler these medications at [facility] on pharmacy dispense records with recent fill hx Patient reportedly taking as prescribed without any issues Reviewed change Discontinued: 12/03/2023 1:16 PM D/c [employer] Reviewed d/c Discontinued: 12/03/2023 1:16 PM [employer] dose liothyronine (CYTOMEL) 5 mcg tablet Take 1 tablet by mouth daily before breakfast. upper doubler these medications at [facility] on pharmacy dispense records with recent fill hx TSH (mIU/L) Date Value 10/26/2023 4.790 ) Patient reportedly taking as prescribed without any issues Reviewed change Discontinued: 12/03/2023 1:16 PM D/c [employer] Reviewed d/c pantoprazole DR (PROTONIX) 40 mg tablet Take 1 tablet by mouth once daily. upper doubler these medications at [facility] Refill issued at discharge, med order unchanged from [employer] on pharmacy dispense records with recent fill hx Patient reportedly taking as prescribed without any issues 30 min before a meal potassium chloride ER (KLOR-CON) 20 mEq tablet Take 1 tablet by mouth once daily as needed (take only if taking a dose of lasix for weight gain/swelling). upper doubler these medications at [facility] on pharmacy dispense records with recent fill hx Prn Reviewed med - change from 8mEq- reviewed using with lasix/furosemide only Discontinued: 12/03/2023 1:16 PM D/c [employer] Replaced by: KLOR-CON M20 20 mEq tablet Reviewed d/c Discontinued: 12/03/2023 1:16 PM D/c [employer] Reviewed d/c Discontinued: 12/03/2023 1:16 PM D/c [employer] Preferred pharmacy: e- [facility]/pharmacy #[id number] [place] [address] - [address] [facility] - [phone] [facility] [address] [facility] [address] [facility] [address] [facility] [address] Estimated Creatinine Clearance: 26 mL/min (A) (based on SCr of 1.83 mg/dL (H)). eGFR, (no units) Date Value 05/28/2012 >60 Estimated Glomerular Filtration Rate (mL/min/1.73m ) Date Value 12/03/2023 28 (L) eGFR- (no units) Date Value 06/20/2016 >60 Additional follow up: Next 5 Appointments None Interventions Made: Patient education/Medication counseling and Adherence counseling Pharmacist Recommendations Made None Care Coordination: [employer] message sent to patient Time spent on patient: 45-60 minutes BARRY WHITING, PHARMACIST, [facility] Pharm[facility] Transitional Care Management (T-P 1v-6t) December 04, 2023 3:22 PM [facility] NoteHNO ID: [id number] Author: ADRIANA MAHAN, Yaron Service: Pharmacy Author Type: Warehouse General Laborer Type: Plan of Care Filed: 12/03/2023 15:48 Note Text: PHARMACY BEDSIDE DELIVERY SERVICE Patient Name: Cece Hubbard The marked outpatient medications were Filled at: [facility] and delivered to the patient's bedside to patient Medication List START taking these medications aspirin 81 mg chewable tablet Take 1 tablet by mouth once daily for 6 doses. Patient should start on December 04, 2023. Start taking on: December 04, 2023 Replaces: aspirin 81 mg Cap DELIVERED clopidogrel 75 mg tablet Commonly known as: PLAVIX Take 1 tablet by mouth once daily. Start taking on: December 04, 2023 DELIVERED potassium chloride ER 20 mEq tablet Commonly known as: KLOR-CON Take 1 tablet by mouth once daily as needed (take only if taking a dose of lasix for weight gain/swelling). Replaces: potassium chloride SR 8 mEq Cper DELIVERED CHANGE how you take these medications apixaban 5 mg tab(s) Commonly known as: ELIQUIS Take 1 tablet by mouth two times a day. What changed: how much to take when to take this DELIVERED escitalopram oxalate 10 mg tablet Commonly known as: LEXAPRO Take 1 tablet by mouth once daily. Start taking on: December 04, 2023 What changed: when to take this DELIVERED furosemide 40 mg tablet Commonly known as: LASIX Take 1 tablet by mouth once daily as needed (for >2lb weight gain in 1 day or >5 lb in 1 week, call numerical control machine machinist if taking this). What changed: medication strength how much to take when to take this reasons to take this DELIVERED isosorbide mononitrate ER 30 mg 24 hr tablet Commonly known as: IMDUR Take 1 tablet by mouth once daily. Start taking on: December 04, 2023 What changed: when to take this DELIVERED liothyronine 5 mcg tablet Commonly known as: CYTOMEL Take 1 tablet by mouth daily before breakfast. Start taking on: December 04, 2023 What changed: when to take this DELIVERED CONTINUE taking these medications amiodarone 200 mg tablet Commonly known as: PACERONE Take a half tablet by mouth once daily. DELIVERED atorvastatin 40 mg tablet Commonly known as: LIPITOR Take 1 tablet by mouth once daily. DELIVERED hydrALAZINE 25 mg tablet Commonly known as: APRESOLINE Take 1 tablet by mouth two times a day. DELIVERED pantoprazole DR 40 mg tablet Commonly known as: PROTONIX Take 1 tablet by mouth once daily. DELIVERED You might also be taking other medications not listed above. If you have questions about any of your other medications, talk to the person who prescribed them or your Primary Care Provider. STOP taking these medications aspirin 81 mg Cap Replaced by: aspirin 81 mg chewable tablet krill oil 500 mg Cap Multivitamin capsule potassium chloride SR 8 mEq Cper Commonly known as: MICRO-K Replaced by: potassium chloride ER 20 mEq tablet PRESERVISION AREDS ORAL traMADol 50 mg tablet Commonly known as: PIPO Mahan PAGER: [phone] December 03, 2023 2:56 [facility]04-24-2024 NoteHNO ID: [id number] Author: NORMA RUSSELL RN Service: Care Management Author Type: Registered Nurse Type: Care Mgt Progress Note Filed: 12/03/2023 14:17 Note Text: CARE MANAGEMENT DISCHARGE NOTE SERVICE DATE: December 03, 2023 SERVICE TIME: 2:17 PM Admission Date: 11/25/2023 LOS: 8 days Discharge Arrangement Discharge Arrangement: Home with Self Care Caregiver Assessment Caregiver is ready, willing and able to meet the patient's needs as recommended by the inter-professional team: No Caregiver needed Transportation Arrangements Transportation Arrangements: Car Handoff Communication: Handoff to: Primary Care Physician Primary Care Physician Name/Phone: Demarco Newell MD/[phone] SIGNATURE: Norma Russell RN PATIENT NAME: Cece Hubbard DATE: December 03, 2023 TIME: 2:16 PM CONTACT #: [phone] Note HNO ID: [id number] Author: LIANE BUCKLEY MD Service: Cardiovascular Medicine Author Type: Physician Type: Progress Notes Filed: 12/03/2023 13:12 Note Text: Cece Hubbard [id number] PRIMARY SERVICE: Cardiology Imaging 78 year old female with history of HTN, CAD status post PCI to LAD and RCA 2020, HFpEF, MR, AR hypothyroidism who presented to OSH with worsening dyspnea on on exertion. INTERVAL HISTORY: - stable - 12/01 IVUS guided PCI to the proximal RCA with a 4.0 x 18 mm Xience BRITTNEY, post-dilated with a 4.0 x 15 mm NC Takeru balloon-- per note plan ASA 81 7 days, plavix 75mg daily indefinitely, AC (triple therapy for 7 days) PHYSICAL EXAM: BP 126/60 Pulse 74 Temp 37.6 ?C (99.7 ?F) (Oral) Resp 18 Wt 77.6 kg (171 lb 1.2 oz) SpO2 95% BMI 29.37 kg/m? Gen: Well appearing, in NAD CV: RRR, prominent systolic murmur Pulm: CTAB, no accessory muscle use Abd: Soft x 4, NT x 4 Skin: No visible lesions Ext: WWP, no LE edema. Neuro: AAOx4, grossly intact upper and lower motor strength, face symmetric, no dysarthria Psych: Pleasant and cooperative MEDICATIONS: Reviewed daily, see MAR for details. Current Facility-Administered Medications: heparin iv infusion 25,000 units in NaCl 0.45% 250 mL LOW DOSE/ACS NOMOGRAM AND heparin RATE CHANGE bolus 1,000-4,000 Units for subtherapeutic PTTAC results melatonin 3 mg tab(s) polyethylene glycol 3350 17 g packet docusate sodium 100 mg cap(s) (COLACE) amiodarone 100 mg tab(s) (PACERONE) atorvastatin 40 mg tab(s) (LIPITOR) hydrALAZINE 25 mg tab(s) (APRESOLINE) aspirin 81 mg chewable tab(s) escitalopram oxalate 10 mg tab(s) (LEXAPRO) pantoprazole DR 40 mg tab(s) (PROTONIX) liothyronine 5 mcg tab(s) (CYTOMEL) isosorbide mononitrate ER 30 mg tab(s) (IMDUR) potassium chloride ER 10-60 mEq tab(s) (KLOR-CON M10) ondansetron (PF) 4 mg injection (ZOFRAN) NaCl 0.9% iv flush bag DATA: Reviewed, see EHR for details. DIAGNOSTICS REVIEWED CBC: Recent Labs 12/03/2341912/02/2342712/01/2372611/30/2354711/29/2345111/28/2344311/27/23 0433 WBC 6.44 5.45 4.96 4.99 5.21 5.03 5.15 HB 13.4 14.6 14.2 13.4 12.5 12.1 11.6 HCT 40.6 43.3 42.2 39.7 38.3 37.0 35.3* PLT 166 181 184 179 177 157 155 MCV 94.6 94.5 94.8 94.3 95.0 96.1 95.4 RDWCV 14.6 14.6 14.6 14.6 14.6 14.5 14.3 BMP: Recent Labs 12/03/2341912/02/2342712/01/2372511/30/2354711/29/2345111/28/2344311/27/23 0433 GLUC 105* 117* 110* 98 97 106* 109* NA 135* 136 138 138 139 140 139 K 4.3 4.3 4.5 3.8 4.0 4.5 3.9 CHLOR 99 98 98 97 99 102 101 CO2 24 23 25 25 24 26 25 ANION 12 15 15 16 16 12 13 BUN 32* 32* 33* 39* 39* 30* 22* CREAT 1.83* 2.05* 1.98* 1.80* 1.75* 1.87* 1.78* CHEM: Recent Labs 12/03/2341912/02/2342712/01/23 0711/30/23 0548 11/29/23 0452 11/28/23 0444 11/27/23 0433 ALB 4.3 4.4 4.7 4.4 4.3 4.0 4.0 TPROT 7.1 7.5 7.7 7.2 7.1 6.5 6.4 CA 10.3* 10.6* 10.6* 10.4* 10.3* 10.0 9.6 MG 2.3 2.3 2.3 2.2 2.1 2.2 2.2 HEPATIC: Recent Labs 12/03/23 0420 12/02/23 0428 12/01/23 0726 11/30/23 0548 11/29/23 0452 11/28/23 0444 11/27/23 0433 ALKPHOS 99 107 103 95 91 89 88 ALT 22 30 32 28 19 10 9 AST 20 23 32 33 23 12* 12* TBILI 0.8 0.8 1.0 0.8 0.7 0.5 0.6 TROPONIN: No results for input(s): TROPT , PBNP in the last 168 hours. COAG: Recent Labs 12/02/23 1112 12/02/23 0428 12/01/23 2059 12/01/23 1439 12/01/23 0726 11/30/23 2210 11/30/23 1229 11/30/23 0548 11/29/23 0452 11/28/23 0444 11/27/23 0433 APTT 28.8 69.2* 57.5* 53.8* 42.7* 70.3* 41.0* 70.0* 55.0* 61.8* 66.3* INR -- 1.0 -- -- 1.0 -- -- 1.0 1.0 1.0 1.0 CRP: CRP Date Value Ref Range Status 06/20/2016 0.4 0.0 - 1.0 mg/dL Final URINALYSIS: No results for input(s): PH , SPGR , UGLUC , UBILI , UKET , UHB , UPROT , UROBIL , UWBC , SSA in the last 168 hours. Invalid input(s): NITR Recent Results (from the past 4464 hour(s)) ECHO Collection Time: 11/28/23 1:30 PM Impression CONCLUSIONS: - Technically difficult exam due to body habitus. - Exam indication: Initial evaluation of known cardiomyopathy - The left ventricle is normal in size. There is left ventricular hypertrophy. Left ventricular systolic function is normal. EF = 63 ? 5% (2D biplane) Grade II left ventricular diastolic dysfunction. - The right ventricle is normal in size. Right ventricular systolic function is normal. - Exam was compared with the prior echocardiographic exam performed on 10/28/2023 ([facility]). AR and MR (more content not included)...[place] [id number] NoteHNO ID: [id number] Author: SONG TYLER MD Service: Cardiovascular Medicine Author Type: Fellow Type: Procedures Filed: 12/03/2023 14:37 Note Text: Attestation signed by Song Tyler MD at 12/03/2023 2:37 PM Song Tyler MD Cece Hubbard DATE: December 02, 2023 Attending: Song Tyler MD Interventional Fellow: David Falcon MD HISTORY OF PRESENT ILLNESS: Ms. Hubbard is a 78 year old female with a history of HTN, CAD status post PCI to LAD and RCA 2020, HFpEF, MR, AR hypothyroidism who presents with direct PCI to the RCA. DIAGNOSTIC ANGIOGRAPHY Diagnostic angiography showed severe 90% ISR of the proximal RCA. Please see the separate diagnostic angiography report for full details. PROCEDURES PERFORMED: -Successful IVUS guided PCI to the proximal RCA with a 4.0 x 18 mm Xience BRITTNEY, post-dilated with a 4.0 x 15 mm NC Takeru balloon. PROCEDURAL DETAILS Access: 6 Fr right radial artery Guide Catheter(s): 6 Fr AL 0.75 Guidewire(s): debra blue Other Equipment: HD IVUS 6 Fr Hemostasis: TR band Anticoagulation: UFH Additional Procedural Medications: Sedation, nitroglycerin PROCEDURAL NARRATIVE: We engaged the RCA with the 6 Fr AL 0.75 guide catheter. After administering heparin to a goal ACT of >250s, we advanced a debra blue coronary wire to the distal RCA. - PTCA with a 2.0 x 15 mm semi-compliant balloon Emerge - Intracoronary imaging with HD IVUS for stent sizing and length - Stenting to the proximal RCA with a 4.0 x 18 mm Xience BRITTNEY - Post-dilation with a 4.0 x 15 mm NC Takeru balloon. - Intracoronary imaging with HD IVUS revealed optimal stent edges, MSA, and apposition. Final angiography showed no evidence of dissection or perforation. There was DEWAYNE 3 flow and 0% residual stenosis. PLAN: 1. ASA 81mg daily for 7 days 2. Clopidogrel 75 mg daily indefinitely. 3. Resume anticoagulation 6 hours post PCI (triple therapy for 7 days) 4. Cardiac rehabilitation. 5. Transferred to cardiac stepdown in stable condition Aggressive risk factor modification as appropriate. -- BP Goal < 130/80 with nonpharmacologic and medical therapy -- LDL goal 50% reduction AND level < 55-70 mg/dL using max tolerated statin +/- adjuvant therapy -- HbA1C < 7% -- Healthy diet and exercise +/- weight loss if appropriate. COMPLICATIONS None Please do not hesitate to contact me with questions. David Falcon MD Interventional Bindery Machine Tender Pager [phone] December 02, 2023 8:23 [facility]04-23-2024 NoteHNO ID: [id number] Author: LISSY PARKER RN Service: ? Author Type: Registered Nurse Type: Progress Notes Filed: 12/02/2023 13:04 Note Text: QOL Call Tracking Documentation Follow-Up Type: Phone Call Call Attempt: 1st Attempt Call Status: Unable to contact patient (Cell phone was answered by patient's daughter who acknowledged that patient is inpatient at [facility] currently and does not have access to [facility]04-23-2024 NoteHNO ID: [id number] Author: FAVIAN JANE APRN.CNP Service: ? Author Type: Nurse Practitioner Type: Progress Notes Filed: 12/02/2023 12:30 Note Text: Incidental Lung Nodule Enrollment Outreach attempt: 1st Attempt Outreach status: Complete Enrolled in Lung Nodule program: Referred Lung Nodule outreach: No outreach - Very small nodule, letter and brochure sent Lung Nodule Program Location: [address] Favian Jane APRN.CNPUniversity Hospitals Par[facility]04-23-2024 NotePatient Outreach (PULMMN) CECE HUBBARD ([id number]) 1945 F Date Time Provider Department 12/02/23 FAVIAN JANE During your visit today, we recorded the following information about you: Favian Jane APRN.CNP 12/02/2023 12:30 PM Signed Incidental Lung Nodule Enrollment Outreach attempt: 1st Attempt Outreach status: Complete Enrolled in Lung Nodule program: Referred Lung Nodule outreach: No outreach - Very small nodule, letter and brochure sent Lung Nodule Program Location: [address] Favian Jane APRN.CNP Allergies As of Date: 12/02/2023 Noted Allergy Reaction SERINA INHIBITORS 04/28/2012 2 - Rash 4 - Hives AMLODIPINE 04/24/2022 7 - Swelling CODEINE 04/28/2012 11 - Vomiting DILAUDID (HYDROMORPHONE (BULK)) 05/12/2012 11 - Vomiting MEPERIDINE 07/28/2017 11 - Vomiting MORPHINE 10/26/2023 11 - Vomiting NEURONTIN (GABAPENTIN) 10/26/2023 1 - Mental Status Change Date Reviewed: 12/02/2023 Reviewed by: Debra Spencer, RN - Fully Assessed Primary Visit Diagnosis:Lung nodules [R91.8] Prescriptions as of 12/02/2023 - potassium chloride SR (MICRO-K) 8 mEq cpER Take 1 capsule by mouth once daily. - hydrALAZINE (APRESOLINE) 25 mg tablet Take 1 tablet by mouth two times a day. - amiodarone (PACERONE) 200 mg tablet Take 0.5 tablets by mouth once daily. - furosemide (LASIX) 20 mg tablet Take 1 tablet by mouth once daily. - ELIQUIS 5 mg tab(s) Take 1 tablet by mouth every 12 hours. - isosorbide mononitrate ER (IMDUR) 30 mg 24 hr tablet Take 30 mg by mouth. - liothyronine (CYTOMEL) 5 mcg tablet Take 1 tablet by mouth every afternoon. - escitalopram oxalate (LEXAPRO) 10 mg tablet Take 1 tablet by mouth every afternoon. - pantoprazole DR (PROTONIX) 40 mg tablet Take 40 mg by mouth once daily. - atorvastatin (LIPITOR) 40 mg tablet Take 40 mg by mouth once daily. - krill oil 500 mg cap - vit A/vit C/vit E/zinc/copper (PRESERVISION AREDS ORAL) - traMADol (ULTRAM) 50 mg tablet Take 50 mg by mouth three times daily as needed. - aspirin 81 mg cap Take by mouth. - Multivitamin capsule Take 1 capsule by mouth once daily. Facility-Administered Medications as of 12/02/2023 - heparin nomogram - NURSING INSTRUCTIONS - ondansetron (PF) 4 mg injection (ZOFRAN) - clopidogrel 75 mg tab(s) (PLAVIX) - potassium chloride ER 10-60 mEq tab(s) (KLOR-CON M10) - heparin iv infusion 25,000 units in NaCl 0.45% 250 mL LOW DOSE/ACS NOMOGRAM - heparin RATE CHANGE bolus 1,000-4,000 Units for subtherapeutic PTTAC results - melatonin 3 mg tab(s) - polyethylene glycol 3350 17 g packet - docusate sodium 100 mg cap(s) (COLACE) - amiodarone 100 mg tab(s) (PACERONE) - atorvastatin 40 mg tab(s) (LIPITOR) - hydrALAZINE 25 mg tab(s) (APRESOLINE) - aspirin 81 mg chewable tab(s) - escitalopram oxalate 10 mg tab(s) (LEXAPRO) - pantoprazole DR 40 mg tab(s) (PROTONIX) - liothyronine 5 mcg tab(s) (CYTOMEL) - isosorbide mononitrate ER 30 mg tab(s) (IMDUR) Problem List As Of Date 12/02/2023 Noted Resolved Knee pain [M25.569] 06/04/2012 Chronic bilateral low back pain without sciatic*06/14/2016 HTN (hypertension) [I10] 02/22/2019 Hyperlipidemia [E78.5] 02/22/2019 Acid reflux [K21.9] 02/22/2019 Depression [F32.A] 04/24/2022 Anxiety [F41.9] 04/24/2022 CAD (coronary artery disease) [I25.10] 04/24/2022 Severe mitral regurgitation [I34.0] 10/27/2023 LAY (acute kidney injury) (HCC) [N17.9] 10/27/2023 Mitral valve insufficiency [I34.0] 10/27/2023 Atrial fibrillation (HCC) [I48.91] 10/27/2023 Obesity, Class I, BMI 30-34.9 [E66.9] 10/30/2023 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] 11/05/2023 Hematoma of right lower leg [S80.11XA] 11/05/2023 Right leg swelling [M79.89] 11/05/2023 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 Anticoagulated [Z79.01] 11/09/2023 HOLLY (dyspnea on exertion) [R06.09] 11/24/2023 Stage 3 chronic kidney disease (HCC) [N18.30] 11/24/2023 Chronic heart failure with preserved ejection f*11/24/2023 Hypothyroidism [E03.9] 11/24/2023 NSTEMI (non-ST elevated myocardial infarction) *11/25/2023 Nonrheumatic aortic valve insufficiency [I35.1] 11/26/2023 Pre-op exam [Z01.818] 11/26/2023 Anticoagulation management encounter [Z51.81, Z*11/26/2023 Dyspnea on exertion [R06.09] 11/26/2023 Atrial fibrillation, chronic (HCC) [I48.20] 11/26/2023 Letter Text Letter Text Encounter Status:Closed by FAVIAN JANE on 12/02/23[facility] 12-02-2023 NotePatient Outreach (TOMN) STEVIECECE Wilson ([id number]) 1945 F Date Time Provider Department 12/02/23 LISSY PARKER [facility] During your visit today, we recorded the following information about you: Lissy Parker, RN 12/02/2023 1:04 PM Signed QOL Call Tracking Documentation Follow-Up Type: Phone Call Call Attempt: 1st Attempt Call Status: Unable to contact patient (Cell phone was answered by patient's daughter who acknowledged that patient is inpatient at [facility] currently and [facility] Allergies As of Date: 12/02/2023 Noted Allergy Reaction SERINA INHIBITORS 04/28/2012 2 - Rash 4 - Hives AMLODIPINE 04/24/2022 7 - Swelling CODEINE 04/28/2012 11 - Vomiting DILAUDID (HYDROMORPHONE (BULK)) 05/12/2012 11 - Vomiting MEPERIDINE 07/28/2017 11 - Vomiting MORPHINE 10/26/2023 11 - Vomiting NEURONTIN (GABAPENTIN) 10/26/2023 1 - Mental Status Change Date Reviewed: 12/02/2023 Reviewed by: Debra Spencer, RN - Fully Assessed Prescriptions as of 12/02/2023 - potassium chloride SR (MICRO-K) 8 mEq cpER Take 1 capsule by mouth once daily. - hydrALAZINE (APRESOLINE) 25 mg tablet Take 1 tablet by mouth two times a day. - amiodarone (PACERONE) 200 mg tablet Take 0.5 tablets by mouth once daily. - furosemide (LASIX) 20 mg tablet Take 1 tablet by mouth once daily. - ELIQUIS 5 mg tab(s) Take 1 tablet by mouth every 12 hours. - isosorbide mononitrate ER (IMDUR) 30 mg 24 hr tablet Take 30 mg by mouth. - liothyronine (CYTOMEL) 5 mcg tablet Take 1 tablet by mouth every afternoon. - escitalopram oxalate (LEXAPRO) 10 mg tablet Take 1 tablet by mouth every afternoon. - pantoprazole DR (PROTONIX) 40 mg tablet Take 40 mg by mouth once daily. - atorvastatin (LIPITOR) 40 mg tablet Take 40 mg by mouth once daily. - krill oil 500 mg cap - vit A/vit C/vit E/zinc/copper (PRESERVISION AREDS ORAL) - traMADol (ULTRAM) 50 mg tablet Take 50 mg by mouth three times daily as needed. - aspirin 81 mg cap Take by mouth. - Multivitamin capsule Take 1 capsule by mouth once daily. Facility-Administered Medications as of 12/02/2023 - heparin nomogram - NURSING INSTRUCTIONS - ondansetron (PF) 4 mg injection (ZOFRAN) - clopidogrel 75 mg tab(s) (PLAVIX) - potassium chloride ER 10-60 mEq tab(s) (KLOR-CON M10) - heparin iv infusion 25,000 units in NaCl 0.45% 250 mL LOW DOSE/ACS NOMOGRAM - heparin RATE CHANGE bolus 1,000-4,000 Units for subtherapeutic PTTAC results - melatonin 3 mg tab(s) - polyethylene glycol 3350 17 g packet - docusate sodium 100 mg cap(s) (COLACE) - amiodarone 100 mg tab(s) (PACERONE) - atorvastatin 40 mg tab(s) (LIPITOR) - hydrALAZINE 25 mg tab(s) (APRESOLINE) - aspirin 81 mg chewable tab(s) - escitalopram oxalate 10 mg tab(s) (LEXAPRO) - pantoprazole DR 40 mg tab(s) (PROTONIX) - liothyronine 5 mcg tab(s) (CYTOMEL) - isosorbide mononitrate ER 30 mg tab(s) (IMDUR) Problem List As Of Date 12/02/2023 Noted Resolved Knee pain [M25.569] 06/04/2012 Chronic bilateral low back pain without sciatic*06/14/2016 HTN (hypertension) [I10] 02/22/2019 Hyperlipidemia [E78.5] 02/22/2019 Acid reflux [K21.9] 02/22/2019 Depression [F32.A] 04/24/2022 Anxiety [F41.9] 04/24/2022 CAD (coronary artery disease) [I25.10] 04/24/2022 Severe mitral regurgitation [I34.0] 10/27/2023 LAY (acute kidney injury) (HCC) [N17.9] 10/27/2023 Mitral valve insufficiency [I34.0] 10/27/2023 Atrial fibrillation (HCC) [I48.91] 10/27/2023 Obesity, Class I, BMI 30-34.9 [E66.9] 10/30/2023 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] 11/05/2023 Hematoma of right lower leg [S80.11XA] 11/05/2023 Right leg swelling [M79.89] 11/05/2023 Arteriovenous fistula of femoral vessels ([facility]) *11/05/2023 Anticoagulated [Z79.01] 11/09/2023 HOLLY (dyspnea on exertion) [R06.09] 11/24/2023 Stage 3 chronic kidney disease (HCC) [N18.30] 11/24/2023 Chronic heart failure with preserved ejection f*11/24/2023 Hypothyroidism [E03.9] 11/24/2023 NSTEMI (non-ST elevated myocardial infarction) *11/25/2023 Nonrheumatic aortic valve insufficiency [I35.1] 11/26/2023 Pre-op exam [Z01.818] 11/26/2023 Anticoagulation management encounter [Z51.81, Z*11/26/2023 Dyspnea on exertion [R06.09] 11/26/2023 Atrial fibrillation, chronic (HCC) [I48.20] 11/26/2023 Encounter Status:Closed by LISSY PARKER on 12/02/23[facility]04-23-2024 NoteHNO ID: [id number] Author: NORMA RUSSELL RN Service: Care Management Author Type: Registered Nurse Type: Care Mgt Progress Note Filed: 12/02/2023 11:54 Note Text: CARE MANAGEMENT PROGRESS NOTE SERVICE DATE: 12/02/2023 SERVICE TIME: 11:54 AM LOS: 7 days IMM Follow Up Copy Given: Yes Copy given to:: Patient Method: In Person SIGNATURE: Norma Russell RN PATIENT NAME: Cece Hubbard DATE: December 02, 2023 TIME: 11:54 AM PAGER/CONTACT #: [phone] [facility]als [facility] History of Present illness Narrative* Lissy Parker RN - 12/02/2023 1:01 PM EDT QOL Call Tracking Documentation Follow-Up Type: Phone Call Call Attempt: 1st Attempt Call Status: Unable to contact patient (Cell phone was answered by patient's daughter who acknowledged that patient is inpatient at [facility] currently and does not have access to [employer].) [facility] History of Present illness Narrative* Favian Jane APRN.CNP - 12/02/2023 12:28 PM EDT Incidental Lung Nodule Enrollment Outreach attempt: 1st Attempt Outreach status: Complete Enrolled in Lung Nodule program: Referred Lung Nodule outreach: No outreach - Very small nodule, letter and brochure sent Lung Nodule Program Location: [address] Favian Jane APRN.CHRISTINA documented in this encounterReg[facility]-23-2024 NoteHNO ID: [id number] Author: LIANE BUCKLEY MD Service: Cardiovascular Medicine Author Type: Physician Type: Progress Notes Filed: 12/02/2023 17:39 Note Text: Cece Hubbard [id number] PRIMARY SERVICE: Cardiology Imaging 78 year old female with history of HTN, CAD status post PCI to LAD and RCA 2020, HFpEF, MR, AR hypothyroidism who presented to OSH with worsening dyspnea on on exertion. INTERVAL HISTORY: - NAEO - Vitals stable on room air - no indication for OHS - C with Dr. Tyler for PCI of RCA ISR PHYSICAL EXAM: BP 157/73 Pulse 71 Temp 37 ?C (98.6 ?F) (Oral) Resp 18 Wt 77.6 kg (171 lb 1.2 oz) SpO2 98% BMI 29.37 kg/m? Gen: Well appearing, in NAD CV: RRR, prominent systolic murmur Pulm: CTAB, no accessory muscle use Abd: Soft x 4, NT x 4 Skin: No visible lesions Ext: WWP, no LE edema. Neuro: AAOx4, grossly intact upper and lower motor strength, face symmetric, no dysarthria Psych: Pleasant and cooperative MEDICATIONS: Reviewed daily, see MAR for details. Current Facility-Administered Medications: heparin iv infusion 25,000 units in NaCl 0.45% 250 mL LOW DOSE/ACS NOMOGRAM AND heparin RATE CHANGE bolus 1,000-4,000 Units for subtherapeutic PTTAC results melatonin 3 mg tab(s) polyethylene glycol 3350 17 g packet docusate sodium 100 mg cap(s) (COLACE) amiodarone 100 mg tab(s) (PACERONE) atorvastatin 40 mg tab(s) (LIPITOR) hydrALAZINE 25 mg tab(s) (APRESOLINE) aspirin 81 mg chewable tab(s) escitalopram oxalate 10 mg tab(s) (LEXAPRO) pantoprazole DR 40 mg tab(s) (PROTONIX) liothyronine 5 mcg tab(s) (CYTOMEL) isosorbide mononitrate ER 30 mg tab(s) (IMDUR) torsemide 20 mg tab(s) (DEMADEX) potassium chloride ER 10-60 mEq tab(s) (KLOR-CON M10) ondansetron (PF) 4 mg injection (ZOFRAN) clopidogrel 75 mg tab(s) (PLAVIX) DATA: Reviewed, see EHR for details. DIAGNOSTICS REVIEWED CBC: Recent Labs 12/02/2342712/01/23 0727 11/30/23 0548 11/29/23 0452 11/28/23 0444 11/27/23 0433 11/26/23 0525 11/26/23 0021 WBC 5.45 4.96 4.99 5.21 5.03 5.15 4.44 5.52 HB 14.6 14.2 13.4 12.5 12.1 11.6 11.1* 11.6 HCT 43.3 42.2 39.7 38.3 37.0 35.3* 33.9* 35.8* PLT 181 184 179 177 157 155 153 178 MCV 94.5 94.8 94.3 95.0 96.1 95.4 94.7 96.2 RDWCV 14.6 14.6 14.6 14.6 14.5 14.3 14.5 14.3 NEUTP -- -- -- -- -- -- -- 54.7 ABSNEUT -- -- -- -- -- -- -- 3.02 LYMPHP -- -- -- -- -- -- -- 30.6 MONOP -- -- -- -- -- -- -- 11.4 EODINP -- -- -- -- -- -- -- 2.2 BMP: Recent Labs 12/02/23427 11/22/24 0726 11/30/23 0548 11/29/23 0452 11/28/23 0444 11/27/23 0433 11/26/23 0525 11/26/23 0021 GLUC 117* 110* 98 97 106* 109* 100* 97 NA 136 138 138 139 140 139 139 139 K 4.3 4.5 3.8 4.0 4.5 3.9 4.0 3.9 CHLOR 98 98 97 99 102 101 105 100 CO2 23 25 25 24 26 25 23 23 ANION 15 15 16 16 12 13 11 16 BUN 32* 33* 39* 39* 30* 22* 20 20 CREAT 2.05* 1.98* 1.80* 1.75* 1.87* 1.78* 1.62* 1.75* CHEM: Recent Labs 12/02/2342712/01/23 0726 11/30/23 0548 11/29/23 0452 11/28/23 0444 11/27/23 04311/26/23 0525 11/26/23 0021 ALB 4.4 4.7 4.4 4.3 4.0 4.0 3.7* 5.2* TPROT 7.5 7.7 7.2 7.1 6.5 6.4 6.0* 6.5 CA 10.6* 10.6* 10.4* 10.3* 10.0 9.6 9.4 9.8 MG 2.3 2.3 2.2 2.1 2.2 2.2 2.2 2.2 HEPATIC: Recent Labs 12/02/2342712/01/23 0711/30/23 0548 11/29/23 0452 11/28/23 0444 11/27/23 0433 11/26/23 0525 11/26/23 0021 ALKPHOS 107 103 95 91 89 88 85 94 ALT 30 32 28 19 10 9 10 10 AST 23 32 33 23 12* 12* 12* 13 TBILI 0.8 1.0 0.8 0.7 0.5 0.6 0.8 0.7 TROPONIN: Recent Labs 11/26/23 0021 PBNP 177 COAG: Recent Labs 12/02/2342712/01/23205812/01/23 1439 12/01/23 0726 11/30/23 2210 11/30/23 1229 11/30/23 0548 11/29/23 0452 11/28/23 0444 11/27/23 0433 11/26/23 1144 11/26/23 0525 11/26/23 0021 APTT 69.2* 57.5* 53.8* 42.7* 70.3* 41.0* 70.0* 55.0* 61.8* 66.3* < > 66.6* 44.4* 49.0* INR 1.0 -- -- 1.0 -- -- 1.0 1.0 1.0 1.0 -- 1.1 1.1 < > = values in this interval not displayed. CRP: CRP Date Value Ref Range Status 06/20/2016 0.4 0.0 - 1.0 mg/dL Final URINALYSIS: Recent Labs 11/26/23 0541 SPGR 1.010 UGLUC Negative UBILI Negative UKET Negative UHB Negative UPROT Negative Recent Results (from the past 4464 hour(s)) ECHO Collection Time: 11/28/23 1:30 PM Impression CONCLUSIONS: - Technically difficult exam due to body habitus. - Exam indication: Initial evaluation of known cardiomyopathy - The left ventricle is normal in size. There is left ventricular hypertrophy. Left ventricular systolic function (more content not included)...[facility]04-22-2024 NoteHNO ID: [id number] Author: NORMA RUSSELL RN Service: Care Management Author Type: Registered Nurse Type: Care Mgt Progress Note Filed: 12/01/2023 12:29 Note Text: CARE MANAGEMENT PROGRESS NOTE SERVICE DATE: 12/01/2023 SERVICE TIME: 12:24 PM LOS: 6 days Needs Prior to Discharge: Procedure Per CTS, no surgical indication for MV intervention based on echo findings. Plan for [facility] with PCI of RCA (ISR) today or tomorrow. No skilled needs identified. SIGNATURE: Norma Russell RN PATIENT NAME: Cece Hubbard DATE: December 01, 2023 TIME: 12:24 PM PAGER/CONTACT #: [phone] Hospitals [facility]04-22-2024 NoteHNO ID: [id number] Author: LIANE BUCKLEY MD Service: Cardiovascular Medicine Author Type: Physician Type: Progress Notes Filed: 12/01/2023 15:09 Note Text: Cece Hubbard [id number] PRIMARY SERVICE: Cardiology Imaging 78 year old female with history of HTN, CAD status post PCI to LAD and RCA 2020, HFpEF, MR, AR hypothyroidism who presented to OSH with worsening dyspnea on on exertion. INTERVAL HISTORY: - NAEO - Vitals stable on room air - no indication for OHS - likely [facility] today vs. tomorrow with Dr. Tyler for PCI of RCA ISR, NPO after breakfast - labs pending PHYSICAL EXAM: BP 174/75 Pulse 65 Temp 36.3 ?C (97.4 ?F) (Oral) Resp 18 Wt 77.6 kg (171 lb 1.2 oz) SpO2 98% BMI 29.37 kg/m? Gen: Well appearing, in NAD CV: RRR, prominent systolic murmur Pulm: CTAB, no accessory muscle use Abd: Soft x 4, NT x 4 Skin: No visible lesions Ext: WWP, no LE edema. Neuro: AAOx4, grossly intact upper and lower motor strength, face symmetric, no dysarthria Psych: Pleasant and cooperative MEDICATIONS: Reviewed daily, see MAR for details. Current Facility-Administered Medications: heparin iv infusion 25,000 units in NaCl 0.45% 250 mL LOW DOSE/ACS NOMOGRAM AND heparin RATE CHANGE bolus 1,000-4,000 Units for subtherapeutic PTTAC results melatonin 3 mg tab(s) polyethylene glycol 3350 17 g packet docusate sodium 100 mg cap(s) (COLACE) amiodarone 100 mg tab(s) (PACERONE) atorvastatin 40 mg tab(s) (LIPITOR) hydrALAZINE 25 mg tab(s) (APRESOLINE) aspirin 81 mg chewable tab(s) escitalopram oxalate 10 mg tab(s) (LEXAPRO) pantoprazole DR 40 mg tab(s) (PROTONIX) liothyronine 5 mcg tab(s) (CYTOMEL) isosorbide mononitrate ER 30 mg tab(s) (IMDUR) torsemide 20 mg tab(s) (DEMADEX) potassium chloride ER 10-60 mEq tab(s) (KLOR-CON M10) ondansetron (PF) 4 mg injection (ZOFRAN) [START ON 12/02/2023] clopidogrel 75 mg tab(s) (PLAVIX) DATA: Reviewed, see EHR for details. DIAGNOSTICS REVIEWED CBC: Recent Labs 11/30/23 0548 11/29/23 0452 11/28/23 0444 11/27/23 0433 11/26/23 0525 11/26/23 0021 11/25/23 0706 11/24/23 1247 WBC 4.99 5.21 5.03 5.15 4.44 5.52 5.54 6.42 HB 13.4 12.5 12.1 11.6 11.1* 11.6 12.8 12.9 HCT 39.7 38.3 37.0 35.3* 33.9* 35.8* 39.3 39.2 PLT 179 177 157 155 153 178 215 241 MCV 94.3 95.0 96.1 95.4 94.7 96.2 95.6 96.1 RDWCV 14.6 14.6 14.5 14.3 14.5 14.3 14.3 14.5 NEUTP -- -- -- -- -- 54.7 -- 69.3 ABSNEUT -- -- -- -- -- 3.02 -- 4.44 LYMPHP -- -- -- -- -- 30.6 -- 18.5 MONOP -- -- -- -- -- 11.4 -- 10.1 EODINP -- -- -- -- -- 2.2 -- 0.9 BMP: Recent Labs 11/30/23 0511/29/2345111/28/2344311/27/2343211/26/2352411/26/23 00211/25/23 0706 11/24/23 1247 GLUC 98 97 106* 109* 100* 97 108* 97 NA 138 139 140 139 139 139 137 139 K 3.8 4.0 4.5 3.9 4.0 3.9 4.4 4.2 CHLOR 97 99 102 101 105 100 102 100 CO2 25 24 26 25 23 23 23 27 ANION 16 16 12 13 11 16 12 12 BUN 39* 39* 30* 22* 20 20 18 16 CREAT 1.80* 1.75* 1.87* 1.78* 1.62* 1.75* 1.67* 1.57* CHEM: Recent Labs 11/30/23 0548 11/29/232 11/28/2344311/27/2343211/26/2352411/26/232011/25/23 0706 11/24/23 1247 ALB 4.4 4.3 4.0 4.0 3.7* 5.2* -- 4.4 TPROT 7.2 7.1 6.5 6.4 6.0* 6.5 -- 7.1 CA 10.4* 10.3* 10.0 9.6 9.4 9.8 9.7 10.0 MG 2.2 2.1 2.2 2.2 2.2 2.2 -- 2.1 HEPATIC: Recent Labs 11/30/23 0548 11/29/23 0452 11/28/23 0444 11/27/23 0433 11/26/23 0525 11/26/23 0021 11/24/23 1247 ALKPHOS 95 91 89 88 85 94 103 ALT 28 19 10 9 10 10 13 AST 33 23 12* 12* 12* 13 14 TBILI 0.8 0.7 0.5 0.6 0.8 0.7 1.2 TROPONIN: Recent Labs 11/26/23 0021 11/24/23 1247 PBNP 177 251 COAG: Recent Labs 11/30/23 2210 11/30/23 1229 11/30/23 0548 11/29/23 0452 11/28/23 0444 11/27/23 0433 11/26/23 1433 11/26/23 1144 11/26/23 0525 11/26/23 0021 11/25/23 1217 11/25/23 0706 APTT 70.3* 41.0* 70.0* 55.0* 61.8* 66.3* 61.1* 36.4* 66.6* 44.4* 49.0* < > 39.5* INR -- -- 1.0 1.0 1.0 1.0 -- -- 1.1 1.1 -- 1.0 < > = values in this interval not displayed. CRP: CRP Date Value Ref Range Status 06/20/2016 0.4 0.0 - 1.0 mg/dL Final URINALYSIS: Recent Labs 11/26/23 0541 SPGR 1.010 UGLUC Negative UBILI Negative UKET Negative UHB Negative UPROT Negative Recent Results (from the past 4464 hour(s)) ECHO Collection Time: 11/28/23 1:30 PM Impression CONCLUSIONS: - Technically difficult exam due to body habitus. - Exam indication: Initial evaluation of known cardiomyopathy - The left ventricle is normal in size. There is left ventricu (more content not included)...[facility]04-21-2024 NoteHNO ID: [id number] Author: JOEL PARRISH MD Service: Cardiovascular Medicine Author Type: Physician Type: Progress Notes Filed: 11/30/2023 13:03 Note Text: Cece Hubbard [id number] PRIMARY SERVICE: Cardiology Imaging 78 year old female with history of HTN, CAD status post PCI to LAD and RCA 2020, HFpEF, MR, AR hypothyroidism who presented to OSH with worsening dyspnea on on exertion. INTERVAL HISTORY: - NAEO - Vitals stable on room air - no indication for OHS - likely [facility] tomorrow with Dr. Tyler for PCI of RCA ISR, NPO after breakfast PHYSICAL EXAM: BP 131/63 Pulse 65 Temp 36.6 ?C (97.8 ?F) (Oral) Resp 18 Wt 78.1 kg (172 lb 2.9 oz) SpO2 96% BMI 29.55 kg/m? Gen: Well appearing, in NAD CV: RRR, prominent systolic murmur Pulm: CTAB, no accessory muscle use Abd: Soft x 4, NT x 4 Skin: No visible lesions Ext: WWP, no LE edema. Neuro: AAOx4, grossly intact upper and lower motor strength, face symmetric, no dysarthria Psych: Pleasant and cooperative MEDICATIONS: Reviewed daily, see MAR for details. Current Facility-Administered Medications: heparin iv infusion 25,000 units in NaCl 0.45% 250 mL LOW DOSE/ACS NOMOGRAM AND heparin RATE CHANGE bolus 1,000-4,000 Units for subtherapeutic PTTAC results melatonin 3 mg tab(s) polyethylene glycol 3350 17 g packet docusate sodium 100 mg cap(s) (COLACE) amiodarone 100 mg tab(s) (PACERONE) atorvastatin 40 mg tab(s) (LIPITOR) hydrALAZINE 25 mg tab(s) (APRESOLINE) aspirin 81 mg chewable tab(s) escitalopram oxalate 10 mg tab(s) (LEXAPRO) pantoprazole DR 40 mg tab(s) (PROTONIX) liothyronine 5 mcg tab(s) (CYTOMEL) isosorbide mononitrate ER 30 mg tab(s) (IMDUR) torsemide 20 mg tab(s) (DEMADEX) potassium chloride ER 10-60 mEq tab(s) (KLOR-CON M10) DATA: Reviewed, see EHR for details. DIAGNOSTICS REVIEWED CBC: Recent Labs 11/29/23 0452 11/28/23 0444 11/27/23 0433 11/26/23 0525 11/26/23 0021 11/25/23 0706 11/24/23 1247 WBC 5.21 5.03 5.15 4.44 5.52 5.54 6.42 HB 12.5 12.1 11.6 11.1* 11.6 12.8 12.9 HCT 38.3 37.0 35.3* 33.9* 35.8* 39.3 39.2 PLT 177 157 155 153 178 215 241 MCV 95.0 96.1 95.4 94.7 96.2 95.6 96.1 RDWCV 14.6 14.5 14.3 14.5 14.3 14.3 14.5 NEUTP -- -- -- -- 54.7 -- 69.3 ABSNEUT -- -- -- -- 3.02 -- 4.44 LYMPHP -- -- -- -- 30.6 -- 18.5 MONOP -- -- -- -- 11.4 -- 10.1 EODINP -- -- -- -- 2.2 -- 0.9 BMP: Recent Labs 11/29/2345111/28/2344311/27/2343211/26/23 0525 11/26/23 00211/25/23 0706 11/24/23 1247 GLUC 97 106* 109* 100* 97 108* 97 NA 139 140 139 139 139 137 139 K 4.0 4.5 3.9 4.0 3.9 4.4 4.2 CHLOR 99 102 101 105 100 102 100 CO2 24 26 25 23 23 23 27 ANION 16 12 13 11 16 12 12 BUN 39* 30* 22* 20 20 18 16 CREAT 1.75* 1.87* 1.78* 1.62* 1.75* 1.67* 1.57* CHEM: Recent Labs 11/29/2345111/28/2344311/27/2343211/26/23 0511/26/23 00211/25/23 0711/24/23 1247 ALB 4.3 4.0 4.0 3.7* 5.2* -- 4.4 TPROT 7.1 6.5 6.4 6.0* 6.5 -- 7.1 CA 10.3* 10.0 9.6 9.4 9.8 9.7 10.0 MG 2.1 2.2 2.2 2.2 2.2 -- 2.1 HEPATIC: Recent Labs 11/29/2345111/28/2344311/27/2343211/26/23 0525 11/26/23 0021 11/24/23 1247 ALKPHOS 91 89 88 85 94 103 ALT 19 10 9 10 10 13 AST 23 12* 12* 12* 13 14 TBILI 0.7 0.5 0.6 0.8 0.7 1.2 TROPONIN: Recent Labs 11/26/23 0021 11/24/23 1247 PBNP 177 251 COAG: Recent Labs 11/30/23 0548 11/29/23 0452 11/28/23 0444 11/27/23 0433 11/26/23 1433 11/26/23 1144 11/26/23 0525 11/26/23 0021 11/25/23 1217 11/25/23 0706 APTT 70.0* 55.0* 61.8* 66.3* 61.1* 36.4* 66.6* 44.4* 49.0* < > 39.5* INR 1.0 1.0 1.0 1.0 -- -- 1.1 1.1 -- 1.0 < > = values in this interval not displayed. CRP: CRP Date Value Ref Range Status 06/20/2016 0.4 0.0 - 1.0 mg/dL Final URINALYSIS: Recent Labs 11/26/23 0541 SPGR 1.010 UGLUC Negative UBILI Negative UKET Negative UHB Negative UPROT Negative Recent Results (from the past 4464 hour(s)) ECHO Collection Time: 11/28/23 1:30 PM Impression CONCLUSIONS: - Technically difficult exam due to body habitus. - Exam indication: Initial evaluation of known cardiomyopathy - The left ventricle is normal in size. There is left ventricular hypertrophy. Left ventricular systolic function is normal. EF = 63 ? 5% (2D biplane) Grade II left ventricular diastolic dysfunction. - The right ventricle is normal in size. Right ventricular systolic function is normal. - Exam was compared with the prior echocardiographic exam performed on 10/28/2023 ([facility]). AR and MR appear less (more content not included)...[facility]04-20-2024 NoteHNO ID: [id number] Author: JOEL PARRISH MD Service: Cardiovascular Medicine Author Type: Physician Type: Progress Notes Filed: 11/29/2023 15:25 Note Text: Cece Hubbard [id number] PRIMARY SERVICE: Cardiology Imaging 78 year old female with history of HTN, CAD status post PCI to LAD and RCA 2020, HFpEF, MR, AR hypothyroidism who presented to OSH with worsening dyspnea on on exertion. INTERVAL HISTORY: - NAEO - Vitals stable on room air - urine out put not fully charted - US right forearm negative for mass or collection PHYSICAL EXAM: BP 138/65 Pulse (!) 59 Temp 36.7 ?C (98 ?F) (Oral) Resp 18 Wt 78.6 kg (173 lb 4.5 oz) SpO2 98% BMI 29.74 kg/m? Gen: Well appearing, in NAD CV: RRR, prominent systolic murmur Pulm: CTAB, no accessory muscle use Abd: Soft x 4, NT x 4 Skin: No visible lesions Ext: WWP, no LE edema. Neuro: AAOx4, grossly intact upper and lower motor strength, face symmetric, no dysarthria Psych: Pleasant and cooperative MEDICATIONS: Reviewed daily, see MAR for details. Current Facility-Administered Medications: heparin iv infusion 25,000 units in NaCl 0.45% 250 mL LOW DOSE/ACS NOMOGRAM AND heparin RATE CHANGE bolus 1,000-4,000 Units for subtherapeutic PTTAC results [COMPLETED] ECHO AND sodium chloride 0.9 % (flush) 2-10 mL (BD POSIFLUSH) AND perflutren lipid microspheres 1.1 mg/mL 1.3 mL injection (DEFINITY) melatonin 3 mg tab(s) polyethylene glycol 3350 17 g packet docusate sodium 100 mg cap(s) (COLACE) amiodarone 100 mg tab(s) (PACERONE) atorvastatin 40 mg tab(s) (LIPITOR) hydrALAZINE 25 mg tab(s) (APRESOLINE) aspirin 81 mg chewable tab(s) escitalopram oxalate 10 mg tab(s) (LEXAPRO) pantoprazole DR 40 mg tab(s) (PROTONIX) liothyronine 5 mcg tab(s) (CYTOMEL) isosorbide mononitrate ER 30 mg tab(s) (IMDUR) torsemide 20 mg tab(s) (DEMADEX) potassium chloride ER 10-60 mEq tab(s) (KLOR-CON M10) DATA: Reviewed, see EHR for details. DIAGNOSTICS REVIEWED CBC: Recent Labs 11/29/23 0452 11/28/23 0444 11/27/23 0433 11/26/23 0525 11/26/23 0021 11/25/23 0706 11/24/23 1247 WBC 5.21 5.03 5.15 4.44 5.52 5.54 6.42 HB 12.5 12.1 11.6 11.1* 11.6 12.8 12.9 HCT 38.3 37.0 35.3* 33.9* 35.8* 39.3 39.2 PLT 177 157 155 153 178 215 241 MCV 95.0 96.1 95.4 94.7 96.2 95.6 96.1 RDWCV 14.6 14.5 14.3 14.5 14.3 14.3 14.5 NEUTP -- -- -- -- 54.7 -- 69.3 ABSNEUT -- -- -- -- 3.02 -- 4.44 LYMPHP -- -- -- -- 30.6 -- 18.5 MONOP -- -- -- -- 11.4 -- 10.1 EODINP -- -- -- -- 2.2 -- 0.9 BMP: Recent Labs 11/28/2344311/27/2343211/26/23 0511/26/23 00211/25/23 0706 11/24/23 1247 GLUC 106* 109* 100* 97 108* 97 NA 140 139 139 139 137 139 K 4.5 3.9 4.0 3.9 4.4 4.2 CHLOR 102 101 105 100 102 100 CO2 26 25 23 23 23 27 ANION 12 13 11 16 12 12 BUN 30* 22* 20 20 18 16 CREAT 1.87* 1.78* 1.62* 1.75* 1.67* 1.57* CHEM: Recent Labs 11/28/2344311/27/2343211/26/2352411/26/232011/25/23 0706 11/24/23 1247 ALB 4.0 4.0 3.7* 5.2* -- 4.4 TPROT 6.5 6.4 6.0* 6.5 -- 7.1 CA 10.0 9.6 9.4 9.8 9.7 10.0 MG 2.2 2.2 2.2 2.2 -- 2.1 HEPATIC: Recent Labs 11/28/2344311/27/2343211/26/23 0511/26/23 00211/24/23 1247 ALKPHOS 89 88 85 94 103 ALT 10 9 10 10 13 AST 12* 12* 12* 13 14 TBILI 0.5 0.6 0.8 0.7 1.2 TROPONIN: Recent Labs 11/26/232011/24/23 1247 PBNP 177 251 COAG: Recent Labs 11/28/2344311/27/2343211/26/23 1433 11/26/23 1144 11/26/23 0525 11/26/23 00211/25/23 1848 11/25/23 1217 11/25/23 0706 APTT 61.8* 66.3* 61.1* 36.4* 66.6* 44.4* 49.0* 64.4* 86.0* 39.5* INR 1.0 1.0 -- -- 1.1 1.1 -- -- 1.0 CRP: CRP Date Value Ref Range Status 06/20/2016 0.4 0.0 - 1.0 mg/dL Final URINALYSIS: Recent Labs 11/26/23 0541 SPGR 1.010 UGLUC Negative UBILI Negative UKET Negative UHB Negative UPROT Negative Recent Results (from the past 4464 hour(s)) ECHO Collection Time: 11/28/23 1:30 PM Impression CONCLUSIONS: - Technically difficult exam due to body habitus. - Exam indication: Initial evaluation of known cardiomyopathy - The left ventricle is normal in size. There is left ventricular hypertrophy. Left ventricular systolic function is normal. EF = 63 ? 5% (2D biplane) Grade II left ventricular diastolic dysfunction. - The right ventricle is normal in size. Right ventricular systolic function is normal. - Exam was compared with the prior echocardiographic exam performed on 10/28/2023 ([facility]). AR and MR appear less severe on the current study. Elec (more content not included)...[facility]04-19-2024 NoteHNO ID: [id number] Author: ELIO COLES RN Service: Care Management Author Type: Registered Nurse Type: Care Mgt Initial Assessment Filed: 11/28/2023 14:10 Note Text: CARE MANAGEMENT: ASSESSMENT AND DISCHARGE PLAN SERVICE DATE: November 28, 2023 SERVICE TIME: 2:06 PM PCP: Demarco Newell MD Primary Contact: Extended Emergency Contact Information Primary Emergency Contact: Elio Hubbard [address]: [address] [place] [id number] [place] [address] OF [facility] Relation: Spouse Secondary Emergency Contact: BARRY CHURCH Mobile Relation: Daughter Admission Status: Inpatient Insurance Provider: MEDICARE A AND B Discharge Planning requested by: Per Department Practice Potential Transition Plans Home;To Be Determined Advance Directives Current Advance Directive: Health Care Power of Digital Technician In Chart: Yes Up To Date and Valid: Yes Current Living Arrangements and Support Lives with: Spouse/significant other Type of Residence: Private Residence (House) Does the patient have to climb stairs at home?: stairs within the home;stairs outside the home (ranch with basement) Support: Spouse/significant other How do you manage to accomplish the following: Independent: Ambulation;Transportation to appointments/community;Bathe/Shower;Meals/Meal Prep;Dress;Going to the bathroom;Medication Management Current Services/Equipment Current Post-Acute Service(s): None Discharge Planning Patient Goal(s): Be able to go home, General wellness [place] Explained: [place] Given: No Reason Not Given: No placements necessary Are you interested in bedside delivery of your medications? Yes Discharge Planning Participant(s): Patient Patient/Family Comments: Caregiver Assessment: Caregiver is ready, willing and able to meet the patient's needs as recommended by the inter-professional team: Yes Name of Caregiver: Spouse Transport at Discharge: Transportation Arrangements: Car Destination: Home Needs Prior to Discharge: Needs Prior to Discharge: To Be Determined Post-Acute Discharge Plan: Pt originally from home, independent [employer]. Lives with spouse, residence is a ranch with a basement, in which laundry is located downstairs. Currently not receiving any skilled services nor using ambulatory aides. Plan for possible CABG/MVR, CTS consulted. Spouse will provide transport when medically ready. CM to follow for discharge planning. Please see Treatment Team for Care Management Weekend/Holiday coverage. SIGNATURE: Elio Coles RN PATIENT NAME: Cece Hubbard DATE: November 28, 2023 TIME: 2:06 PM CONTACT #: [phone] [facility]als [facility]04-19-2024 Note HNO ID: [id number] Author: RICHA FERNANDO RRT Service: ? Author Type: Registered Resp Therapist Type: Progress Notes Filed: 11/28/2023 11:06 Note Text: PULM FUNCTION SMARTBLOCK: Provider: Gaetano Shaw MD Spirometry: 1 DLCO: 1 System: MC8 - [id number] Hospitals [facility]04-19-2024 History of Present illness Narrative* Richa Fernando RRT - 11/28/2023 11:04 AM EDT PULM FUNCTION SMARTBLOCK: Provider: Gaetano Shaw MD Spirometry: 1 DLCO: 1 System: 8 - [id number] documented in this encounterReg[facility]04-19-2024 NoteHNO ID: [id number] Author: JOEL PARRISH MD Service: Cardiovascular Medicine Author Type: Physician Type: Progress Notes Filed: 11/28/2023 14:33 Note Text: Cece Hubbard [id number] PRIMARY SERVICE: Cardiology Imaging 78 year old female with history of HTN, CAD status post PCI to LAD and RCA 2020, HFpEF, MR, AR hypothyroidism who presented to OSH with worsening dyspnea on on exertion. INTERVAL HISTORY: - NAEO - VS - afebrile, pulse 54, BP 136/61, saturating 96% on room air - labs - CBC stable, creat 1.87 > 1.78 > 1.62, therapeutic aptt on heparin drip - urine out put not fully charted PHYSICAL EXAM: BP 127/64 Pulse 63 Temp 36.6 ?C (97.9 ?F) (Oral) Resp 16 Wt 79.1 kg (174 lb 6.1 oz) SpO2 98% BMI 29.93 kg/m? Gen: Well appearing, in NAD CV: RRR, prominent systolic murmur Pulm: CTAB, no accessory muscle use Abd: Soft x 4, NT x 4 Skin: No visible lesions Ext: WWP, no LE edema. Neuro: AAOx4, grossly intact upper and lower motor strength, face symmetric, no dysarthria Psych: Pleasant and cooperative MEDICATIONS: Reviewed daily, see MAR for details. Current Facility-Administered Medications: heparin iv infusion 25,000 units in NaCl 0.45% 250 mL LOW DOSE/ACS NOMOGRAM AND heparin RATE CHANGE bolus 1,000-4,000 Units for subtherapeutic PTTAC results ECHO AND sodium chloride 0.9 % (flush) 2-10 mL (BD POSIFLUSH) AND perflutren lipid microspheres 1.1 mg/mL 1.3 mL injection (DEFINITY) melatonin 3 mg tab(s) polyethylene glycol 3350 17 g packet docusate sodium 100 mg cap(s) (COLACE) amiodarone 100 mg tab(s) (PACERONE) atorvastatin 40 mg tab(s) (LIPITOR) hydrALAZINE 25 mg tab(s) (APRESOLINE) aspirin 81 mg chewable tab(s) escitalopram oxalate 10 mg tab(s) (LEXAPRO) pantoprazole DR 40 mg tab(s) (PROTONIX) liothyronine 5 mcg tab(s) (CYTOMEL) isosorbide mononitrate ER 30 mg tab(s) (IMDUR) spironolactone 25 mg tab(s) (ALDACTONE) torsemide 20 mg tab(s) (DEMADEX) potassium chloride ER 10-60 mEq tab(s) (KLOR-CON M10) DATA: Reviewed, see EHR for details. DIAGNOSTICS REVIEWED CBC: Recent Labs 11/28/2344311/27/2343211/26/2352411/26/23 00211/25/23 0711/24/23 1247 WBC 5.03 5.15 4.44 5.52 5.54 6.42 HB 12.1 11.6 11.1* 11.6 12.8 12.9 HCT 37.0 35.3* 33.9* 35.8* 39.3 39.2 PLT 157 155 153 178 215 241 MCV 96.1 95.4 94.7 96.2 95.6 96.1 RDWCV 14.5 14.3 14.5 14.3 14.3 14.5 NEUTP -- -- -- 54.7 -- 69.3 ABSNEUT -- -- -- 3.02 -- 4.44 LYMPHP -- -- -- 30.6 -- 18.5 MONOP -- -- -- 11.4 -- 10.1 EODINP -- -- -- 2.2 -- 0.9 BMP: Recent Labs 11/28/2344311/27/2343211/26/23 0511/26/232011/25/23 0711/24/23 1247 GLUC 106* 109* 100* 97 108* 97 NA 140 139 139 139 137 139 K 4.5 3.9 4.0 3.9 4.4 4.2 CHLOR 102 101 105 100 102 100 CO2 26 25 23 23 23 27 ANION 12 13 11 16 12 12 BUN 30* 22* 20 20 18 16 CREAT 1.87* 1.78* 1.62* 1.75* 1.67* 1.57* CHEM: Recent Labs 11/28/2344311/27/2343211/26/2352411/26/232011/25/23 0711/24/23 1247 ALB 4.0 4.0 3.7* 5.2* -- 4.4 TPROT 6.5 6.4 6.0* 6.5 -- 7.1 CA 10.0 9.6 9.4 9.8 9.7 10.0 MG 2.2 2.2 2.2 2.2 -- 2.1 HEPATIC: Recent Labs 11/28/23 0444 11/27/23 0433 11/26/23 0525 11/26/23 0021 11/24/23 1247 ALKPHOS 89 88 85 94 103 ALT 10 9 10 10 13 AST 12* 12* 12* 13 14 TBILI 0.5 0.6 0.8 0.7 1.2 TROPONIN: Recent Labs 11/26/23 0021 11/24/23 1247 PBNP 177 251 COAG: Recent Labs 11/28/23 0444 11/27/23 0433 11/26/23 1433 11/26/23 1144 11/26/23 0525 11/26/23 0021 11/25/23 1848 11/25/23 1217 11/25/23 0706 APTT 61.8* 66.3* 61.1* 36.4* 66.6* 44.4* 49.0* 64.4* 86.0* 39.5* INR 1.0 1.0 -- -- 1.1 1.1 -- -- 1.0 CRP: CRP Date Value Ref Range Status 06/20/2016 0.4 0.0 - 1.0 mg/dL Final URINALYSIS: Recent Labs 11/26/23 0541 SPGR 1.010 UGLUC Negative UBILI Negative UKET Negative UHB Negative UPROT Negative Recent Results (from the past 4464 hour(s)) ECHO Collection Time: 10/28/23 3:41 PM Impression CONCLUSIONS: - Technically difficult exam due to body habitus. - Exam indication: Initial evaluation valvular heart disease - The left ventricle is normal in size. There is left ventricular hypertrophy. Left ventricular systolic function is normal. EF = 67 ? 5% (2D biplane) Left ventricular diastolic function was not evaluated due to >2+ MR and >2+ AI. - The right ventricle is normal in size. Right ventricular systolic function is normal. - The left atrial cavity is severely dilated. - There is moderately severe (3+) mitral valve regurgi (more content not included)...[facility]04-18-2024 NoteHNO ID: [id number] Author: ALYSE CHIU Tech Service: ? Author Type: Technologist Type: Progress Notes Filed: 11/27/2023 08:36 Note Text: Radiology Service Progress Note PATIENT NAME: Cece Hubbard DATE OF SERVICE: November 27, 2023 TIME: 8:36 AM PATIENT IDENTITY VERIFICATION COMPLETED USING TWO (2) IDENTIFIERS: Name and Date of confirmed by patient verbally and Name and Date of confirmed by identification band. FALL SCREENING: Has the patient had 2 falls in the last year or 1 fall with injury or currently using an Ambulatory Assistive Device (Walker, Cane, Wheelchair, Crutches, etc.)? Inpatient: Screened on floor PATIENT GENDER DATA: Female. status: : No status: NO. PATIENT RELEVANT IMPLANT DATA REVIEWED: Yes PATIENT PRESENTS WITH AN IMPLANTABLE OR ATTACHED SCALE ATTENDANT: No RADIOLOGY DEPARTMENT: CT; Exam(s) Completed: Cardiac PERIPHERAL IV DATA: Not applicable SIGNED BY: Everett Palacios November 27, 2023 8:36 [facility]04-18-2024 NoteHNO ID: [id number] Author: JOEL PARRISH MD Service: Cardiovascular Medicine Author Type: Physician Type: Progress Notes Filed: 11/27/2023 15:05 Note Text: Cece Hubbard [id number] PRIMARY SERVICE: Cardiology Imaging 78 year old female with history of HTN, CAD status post PCI to LAD and RCA 2020, HFpEF, MR, AR hypothyroidism who presented to OSH with worsening dyspnea on on exertion. INTERVAL HISTORY: - NAEO - VS - afebrile, pulse 57, BP 127/58 - labs - CBC stable, creat 1.78 > 1.62, therapeutic aptt on heparin drip PHYSICAL EXAM: BP 127/58 Pulse 63 Temp 36.7 ?C (98.1 ?F) (Oral) Resp 16 Wt 81.5 kg (179 lb 10.8 oz) SpO2 97% BMI 30.84 kg/m? Gen: Well appearing, in NAD CV: RRR, prominent systolic murmur Pulm: CTAB, no accessory muscle use Abd: Soft x 4, NT x 4 Skin: No visible lesions Ext: WWP, no LE edema. Neuro: AAOx4, grossly intact upper and lower motor strength, face symmetric, no dysarthria Psych: Pleasant and cooperative MEDICATIONS: Reviewed daily, see MAR for details. Current Facility-Administered Medications: heparin iv infusion 25,000 units in NaCl 0.45% 250 mL LOW DOSE/ACS NOMOGRAM AND heparin RATE CHANGE bolus 1,000-4,000 Units for subtherapeutic PTTAC results ECHO AND sodium chloride 0.9 % (flush) 2-10 mL (BD POSIFLUSH) AND perflutren lipid microspheres 1.1 mg/mL 1.3 mL injection (DEFINITY) melatonin 3 mg tab(s) polyethylene glycol 3350 17 g packet docusate sodium 100 mg cap(s) (COLACE) amiodarone 100 mg tab(s) (PACERONE) atorvastatin 40 mg tab(s) (LIPITOR) hydrALAZINE 25 mg tab(s) (APRESOLINE) aspirin 81 mg chewable tab(s) escitalopram oxalate 10 mg tab(s) (LEXAPRO) pantoprazole DR 40 mg tab(s) (PROTONIX) liothyronine 5 mcg tab(s) (CYTOMEL) isosorbide mononitrate ER 30 mg tab(s) (IMDUR) spironolactone 25 mg tab(s) (ALDACTONE) torsemide 20 mg tab(s) (DEMADEX) DATA: Reviewed, see EHR for details. DIAGNOSTICS REVIEWED CBC: Recent Labs 11/27/2343211/26/2352411/26/232011/25/2370511/24/23 1247 WBC 5.15 4.44 5.52 5.54 6.42 HB 11.6 11.1* 11.6 12.8 12.9 HCT 35.3* 33.9* 35.8* 39.3 39.2 PLT 155 153 178 215 241 MCV 95.4 94.7 96.2 95.6 96.1 RDWCV 14.3 14.5 14.3 14.3 14.5 NEUTP -- -- 54.7 -- 69.3 ABSNEUT -- -- 3.02 -- 4.44 LYMPHP -- -- 30.6 -- 18.5 MONOP -- -- 11.4 -- 10.1 EODINP -- -- 2.2 -- 0.9 BMP: Recent Labs 11/27/2343211/26/2352411/26/232011/25/2370511/24/23 1247 GLUC 109* 100* 97 108* 97 NA 139 139 139 137 139 K 3.9 4.0 3.9 4.4 4.2 CHLOR 101 105 100 102 100 CO2 25 23 23 23 27 ANION 13 11 16 12 12 BUN 22* 20 20 18 16 CREAT 1.78* 1.62* 1.75* 1.67* 1.57* CHEM: Recent Labs 11/27/2343211/26/2352411/26/232011/25/2370511/24/23 1247 ALB 4.0 3.7* 5.2* -- 4.4 TPROT 6.4 6.0* 6.5 -- 7.1 CA 9.6 9.4 9.8 9.7 10.0 MG 2.2 2.2 2.2 -- 2.1 HEPATIC: Recent Labs 11/27/23 0433 11/26/23 0525 11/26/23 0021 11/24/23 1247 ALKPHOS 88 85 94 103 ALT 9 10 10 13 AST 12* 12* 13 14 TBILI 0.6 0.8 0.7 1.2 TROPONIN: Recent Labs 11/26/23 0021 11/24/23 1247 PBNP 177 251 COAG: Recent Labs 11/27/23 0433 11/26/23 1433 11/26/23 1144 11/26/23 0525 11/26/23 0021 11/25/23 1848 11/25/23 1217 11/25/23 0706 APTT 66.3* 61.1* 36.4* 66.6* 44.4* 49.0* 64.4* 86.0* 39.5* INR 1.0 -- -- 1.1 1.1 -- -- 1.0 CRP: CRP Date Value Ref Range Status 06/20/2016 0.4 0.0 - 1.0 mg/dL Final URINALYSIS: Recent Labs 11/26/23 0541 SPGR 1.010 UGLUC Negative UBILI Negative UKET Negative UHB Negative UPROT Negative Recent Results (from the past 4464 hour(s)) ECHO Collection Time: 10/28/23 3:41 PM Impression CONCLUSIONS: - Technically difficult exam due to body habitus. - Exam indication: Initial evaluation valvular heart disease - The left ventricle is normal in size. There is left ventricular hypertrophy. Left ventricular systolic function is normal. EF = 67 ? 5% (2D biplane) Left ventricular diastolic function was not evaluated due to >2+ MR and >2+ AI. - The right ventricle is normal in size. Right ventricular systolic function is normal. - The left atrial cavity is severely dilated. - There is moderately severe (3+) mitral valve regurgitation. - There is moderate (2+) aortic valve regurgitation. - Exam was compared with the prior OUTSIDE echocardiographic exam performed on 08/06/2023. ([place]) * * * Final * * * (more content not included)...[facility]04-17-2024 NoteHNO ID: [id number] Author: MODE SCHOFIELD CPhT Service: Pharmacy Author Type: Warehouse General Laborer Type: Plan of Care Filed: 11/26/2023 09:52 Note Text: Reason for test claim: HVTI Jardiance Medication: Jardiance 10 mg tablets Qty: 30 tablets Day supply: 30 days Cost on insurance: $375.27 Deductible: $332.27 of above total Requires prior authorization: No Copay card/voucher available: Yes, voucher (to be used once per lifetime) Cost of medication on copay card/voucher: $0/once per lifetime 14 day free trial offer Farxiga Medication: Farxiga 10 mg tablets Qty: 30 tablets Day supply: 30 days Cost on insurance: $370.72 Deductible: $332.27 of above total Requires prior authorization: No Copay card/voucher available: Yes, voucher (to be used once per lifetime) Cost of medication on copay card/voucher: $0/once per lifetime 30 day free trial offer Total number of calixto checks: 2 Any questions, [place] [phone]. Thank you (Prices may vary at different pharmacy locations, this is the cost at [facility]) Mode Schofield CPhT Medication Hosiery Repairer [id number] Hospitals Parma Medical Center04-17-2024 NoteHNO ID: [id number] Author: MODE SCHOFIELD CPhT Service: Pharmacy Author Type: Warehouse General Laborer Type: Plan of Care Filed: 11/26/2023 09:50 Note Text: Insurance investigation completed Patient has active prescription insurance: Yes - Patient's insurance is in-network with [facility] Insurance loaded into [place]: Yes Test claim was completed to verify insurance is active: Successful Any questions, please contact your medication case management coordinator. Pager #: [phone] Mode Schofield spectrographer Medication Hosiery Repairer [id number] Hospitals Parma Medical Center04-02-2024 Miscellaneous Notes* Telephone Encounter - Jadyn Storey RN - 11/11/2023 12:35 PM EDT Cards H&P-preop studies-CT chest wo-Carotid US-vein mapping-PFTs 12/03/23, [facility]- Dr. Shaw consult1 pm 12/03, [facility] 12/05/23 Mrs. Hubbard called back saying she is able to be seen in [place] [facility] tomorrow, so she would like to move forward scheduling her surgery. We discussed her preoperative appointments for December 02-2023 prior to her surgery on 12/05/23. She will bring a dental clearance letter. She was further instructed to take her last dose of eliquis on 11/29/23 as well as all vitamins and OTC supplements. Jadyn Storey RN Cardiac Surgery PreOp Checklist Patient Name: Cece Hubbard OR Surgery Date: 12/05/23 [facility] Appt. Date: 12/04/23 Primary Care Provider: Demarco Newell MD Definition Comments Diabetes/Insulin Pump A1-c and Endo consult (need for pump pt) n/a Hypothyroid/thyroid nodules TSH/US of thyroid if new nodule ordered Stroke (CVA) Neurology consult n/a Dysphagia, stricture w/no recent dilation, Aguilar's Esophagus GI consult n/a Von Willebrand/thrombocytopenia/ Blood... Hematology consult n/a Abnormal labs from outside Place any necessary consults n/a Cardiac Cath Correct birthday/include all images/moving if outside cath [facility] 10/31/23 Redo [facility]/Robotic surgery/radiation to chest CT or CTA/if outside CT will need in-house CXR, CardiacMRI n/a Mechanical valve Admit for Heparin/Lovenox bridge n/a Female <50 y/o HCG n/a Heparin allergy hx of HIT Vascular Medicine consult n/a Nickel/Metal allergy Dermatology consult n/a Breast implants/Robotic candidates Plastic Surgery consult n/a Urinary strictures Urology consult/Urology consult to OR n/a All stimulators/spinal stimulator Type of stimulator n/a PPM/AICD Device check n/a Valve/TAVR/TEVAR/Myectomy/ascending aorta Dental clearance/Dental Consult at [facility] Will bring letter CABG surgery with previous CABG/varicose vein/vein stripping Leg vein mapping n/a LMT disease > 30% or Carotid Bruits Carotid ultrasound n/a Descending Aneurysm/TEVAR/TAA Pre-admit/hydration/spinal drain to be placed: IR/OR/Not Needed n/a Dialysis patient IHD day prior to [facility] n/a CABG with no ECHO results Discussion w/surgeon results for dental clearance: preop/postop n/a Advanced Directives Instructions given to patient n/a FMLA Forward to AA n/a Test/Consult not needed Communicate in Epic or Access n/a Record of decreased PFTs, known lung disease Any pulmonary consult n/a Pulmonary embolectomy Needs US/Duplex BLE, VQ scan RHC, possible LHC, Pulmonary and/or Vascular consult n/a Abnormal CT All>1cm if further workup/consult needed n/a CC-[employer] Repostitory Notification of packet and general knowledge given to pt n/a * Telephone Encounter - Jadyn Storey RN - 11/11/2023 12:10 PM EDT I spoke to Mrs. Hubbard regarding Dr. Shaw' surgical recommendation and our surgery scheduling process. She is interested in 12/05/23 for her surgery date. She has not seen a dentist in the past 6 months. She is going to call her dentist to see if she is able to get an appointment and will let me know if this is a problem for the 12/05/23 surgery date. She will call me back. Jadyn Storey RN * Telephone Encounter - Jadyn Storey RN - 11/06/2023 4:[address] Shaw reviewed the case and is recommending surgery consisting of MVr-CABG x1 (RCA)-maze-LAAC +/- AVR. NPM to call the patient. Jadyn Storey RN * Telephone Encounter - Jadyn Storey RN - 11/03/2023 9:52 AM EDT Chart reviewed November 03, 2023. File given to Dr. Shaw for his review/plan of care. 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 Symptoms: increasing dyspnea, Palpitations EF%: 67% Thinners: Eliquis, Aspirin 81 mg Smoking status: quit 1989 Jadyn Storey RN * Telephone Encounter - Karis Ware - 10/31/2023 4:18 PM EDT LOCAL PATIENT Received Call from Dr. Satish Zhao Steve Hubbard is being referred to Gaetano Shaw MD by Vasyl Covarrubias [id number] [address] [facility] [id number] Patient diagnosis/Reason for consult: MVR Referral triage process explained: N/A Patient will receive a call from Cardiac NPM after triage review with surgeon to discuss any additional testing and/or consults that will be scheduled. Pt will then receive a call from our scheduling office for scheduling. Please call pt at [phone]. Patient Registration: Registration complete/updated: yes Insurance card(s) scanned in [facility] with in the past year: Yes: Date: 10/26/2023 Pt's [employer] is active. Ok to communicate to pt via [employer] not asked Medical Records: Records in [facility] (internal [facility] records): Yes Imaging in [facility] (internal [facility] records): Yes Additional providers added to Care Teams: Yes Additional Notes/Comments: Enct routed to: Yes, Cardiac NPM for triage Karis Prado documented in this encounterRegency Hospital [facility]04-01-2024 Hospital Discharge instructions Patient Education 11/10/2023 00:34:31 Community-Acquired Pneumonia, Adult, [id number] Community-Acquired Pneumonia, Adult Pneumonia is an infection of the lungs. It causes irritation and swelling in the airways of the lungs. Mucus and fluid may also build up inside the airways. This may cause coughing and trouble breathing. One type of pneumonia can happen while you are in a hospital. A different type can happen when you are not in a hospital (community-acquired pneumonia). What are the causes? This condition is caused by germs (viruses, bacteria, or fungi). Some types of germs can spread from person to person. Pneumonia is not thought to spread from person to person. What increases the risk? You have a long-term (chronic) disease, such as: ?Disease of the lungs. This may be chronic obstructive pulmonary disease (COPD) or asthma. ?Heart failure. ?Cystic fibrosis. ?Diabetes. ?Kidney disease. ?Sickle cell disease. ?HIV. You have other health problems, such as: ?Your body's defense system (immune system) is weak. ?A condition that may cause you to breathe in fluids from your mouth and nose. You had your spleen taken out. You do not take good care of your teeth and mouth (poor dental hygiene). You use or have used tobacco products. You go where the germs that cause this illness are common. You are older than 65 years of age. What are the signs or symptoms? A cough. A fever. Sweating or chills. Chest pain, often when you breathe deeply or cough. Breathing problems, such as: ?Fast breathing. ?Trouble breathing. ?Shortness of breath. Feeling tired (fatigued). Muscle aches. How is this treated? Treatment for this condition depends on many things, such as: The cause of your illness. Your medicines. Your other health problems. Most adults can be treated at home. Sometimes, treatment must happen in a hospital. Treatment may include medicines to kill germs. Medicines may depend on which germ caused your illness. Very bad pneumonia is rare. If you get it, you may: Have a machine to help you breathe. Have fluid taken away from around your lungs. Follow these instructions at home: Medicines Take lgaa-wkf-vuoxpza and prescription medicines only as told by your doctor. Take cough medicine only if you are losing sleep. Cough medicine can keep your body from taking mucus away from your lungs. If you were prescribed antibiotics, take them as told by your doctor. Do not stop taking them even if you start to feel better. Lifestyle Do not smoke or use any products that contain nicotine or tobacco. If you need help quitting, ask your doctor. Do not drink alcohol. Eat a healthy diet. This includes a lot of vegetables, fruits, whole grains, low-fat dairy products, and low-fat (lean) protein. General instructions Rest a lot. Sleep for at least 8 hours each night. Sleep with your head and neck raised. Put a few pillows under your head or sleep in a reclining chair. Return to your normal activities as told by your doctor. Ask your doctor what activities are safe for you. Drink enough fluid to keep your pee (urine) pale yellow. If your throat is sore, gargle with a mixture of salt and water 3 4 times a day or as needed. To make salt water, completely dissolve 1 tsp (3 6 g) of salt in 1 cup (237 mL) of warm water. Keep all follow-up visits. How is this prevented? Getting the pneumonia shot (vaccine). These shots have different types and schedules. Ask your doctor what works best for you. Think about getting this shot if: ?You are older than 65 years of age. ?You are 19 65 years of age and: ?You are being treated for cancer. ?You have long-term lung disease. ?You have other problems that affect your body's defense system. Ask your doctor if you have one ofthese. Getting your flu shot every year. Ask your doctor which type of shot is best for you. Going to the dentist as often as told. Washing your hands often with soap and water for at least 20 seconds. If you cannot use soap and water, use hand quality assurance qa lab technician. Contact a doctor if: You have a fever. You lose sleep because your cough medicine does not help. Get help right away if: You are short of breath and this gets worse. You have more chest pain. Your sickness gets worse. This is very serious if: ?You are an older adult. ?Your body's defense system is weak. You cough up blood. These symptoms may be an emergency. Get help right away. Call 911. Do not wait to see if the symptoms will go away. Do not drive yourself to the hospital. Summary Pneumonia is an infection of the lungs. Community-acquired pneumonia affects people who have not been in the hospital. Certain germs can cause this infection. This condition may be treated with medicines that kill germs. For very bad pneumonia, you may need a hospital stay and treatment to help with breathing. This information is not intended to replace advice given to you by your health care provider. Make sure you discuss any questions you have with your health care provider. Document Revised: 09/25/2022 Document Reviewed: 09/25/2022 [employer] Patient Education 2022 [employer]. Follow Up Care 11/09/2023 20:48:58 With:Demarco Stefanoalbania Address: [address] [place], [place] [id number] Business (1) When:11/12/2023 Comments:Follow-up with your primary care provider in 3 to 5 days. If symptoms worsen, do not improve, or new symptoms arise please report back to emergency department for further evaluation. [facility]03-31-2024 Evaluation + Plan noteExtracted from: Title:ED Note Author:Riccardo Angel PA-C te:11/09/23 Pneumonia (J18.9: Pneumonia, unspecified organism) Orders: acetaminophen, 650 mg = 2 tab(s), Tab, Oral, Once, Stop date 11/09/23 22:17:00 EDT, STAT, Start date 11/09/23 22:17:00 EDT, 11/09/23 22:17:00 EDT ondansetron, 4 mg = 2 mL, Injection, IV Push, Once, Stop date 11/09/23 21:08:00 EDT, STAT, Start date 11/09/23 21:08:00 EDT, 11/09/23 21:08:00 EDT Sodium Chloride 0.9% intravenous solution, 1,000 mL, Soln-IV, IV, Once, Stop date 11/09/23 21:08:00 EDT, STAT, Start date 11/09/23 21:08:00 EDT, Infuse over 61, minute(s) Basic Metabolic Panel CBC w/ Auto Diff ECG 12 Lead Adult eGFR Hepatic Function Panel Influenza A&B Ag Lipase Level PT & PTT Rapid COVID Antigen ([facility]) Troponin 0 Hr. Troponin 3 Hr. Troponin 6 Hr. Troponin 9 Hr. UA with Cult Rflx XR Chest Single View [facility]03-27-2024 NoteHNO ID: [id number] Author: ALEXA HOLLEY LSW Service: Care Management Author Type: Credit Correspondence Clerk Type: Care Mgt Initial Assessment Filed: 11/05/2023 13:22 Note Text: CARE MANAGEMENT: ASSESSMENT AND DISCHARGE PLAN SERVICE DATE: November 05, 2023 SERVICE TIME: 1:18 PM PCP: Demarco Newell MD Primary Contact: Extended Emergency Contact Information Primary Emergency Contact: Elio Hubbard Address: [address] [place] [address] [place] [address] Relation: Spouse Secondary Emergency Contact: BARRY CHURCH Mobile Relation: Daughter Admission Status: Observation Insurance Provider: MEDICARE A AND B Discharge Planning requested by: Per Department Practice Potential Transition Plans Home Advance Directives Current Advance Directive: Health Care Power of Digital Technician In Chart: Yes Up To Date and Valid: Yes Current Living Arrangements and Support Lives with: Spouse/significant other Type of Residence: Private Residence (House) Does the patient have to climb stairs at home?: stairs outside the home;Yes Support: Spouse/significant other, Children How do you manage to accomplish the following: Independent: Ambulation;Bathe/Shower;Dress;Meals/Meal Prep;Going to the bathroom;Medication Management;Transportation to appointments/community Current Services/Equipment Current Post-Acute Service(s): None Discharge Planning Patient Goal(s): Be able to go home, General wellness [place] Explained: [place] Given: No Reason Not Given: No placements necessary Are you interested in bedside delivery of your medications? No Discharge Planning Participant(s): Patient Patient/Family Comments: none Caregiver Assessment: Caregiver is ready, willing and able to meet the patient's needs as recommended by the inter-professional team: No Caregiver needed Transport at Discharge: Transportation Arrangements: Car Destination: home Needs Prior to Discharge: Needs Prior to Discharge: To Be Determined Advance Care Planning HCPOA paperwok on file within [facility] and verified to be current as of date/time of this note: Yes. Patient reports HCPOA is correct and in EPIC. Legal Next of Kin Hierarchy per [place] Revised Code: Court-appointed Guardian Healthcare Power of Hrztugmu-xgsecg-Eperkop Nestor [phone] and dtr-Chelsea Church as 1st alt HCPOA [phone] Legal Spouse-Elio Hubbard [phone] Majority of Adult Children (consensus if possible) Parents Majority of Adult Siblings (consensus if possible) Nearest Blood Relative EMMA Kaur November 05, 2023 Post-Acute Discharge Plan: SW met with patient at bedside to complete assessment. SW introduced self and role. Patient is AANDOX3 and agreeable to SW visit. Patient is 78 year old female who presents with leg pain. H/O CAD, hypothyroidism, depression, CKD. Patient reports living with her spouse with bedroom and bathroom on main floor and 2 steps to enter the home. Patient reports being independent with ADLs and iADLs, drives, retired and no DME. Patient reports if she has to drive far, her spouse assists with transportation. Patient denies issues with drugs, alcohol, and MH at this time. Patient denies being active with community services at this time. Patient denies financial, social, and safety concerns at this time. Anticipate no dc skilled needs at this time. Patient reports her spouse will provide transport upon dc. SW/TCC available to assist with dc if needed. SIGNATURE: EMMA Kaur PATIENT NAME: Cece Hubbard DATE: November 05, 2023 TIME: 1:18 PM CONTACT #: [phone] NoteHNO ID: [id number] Author: MINA GODOY MD Service: General Surgery Author Type: Resident Type: Plan of Care Filed: 11/04/2023 21:51 Note Text: Received call from ED regarding Ms. Hubbard who is s/p RHC/LHC c/b R femoral hematoma. Patient now with worsening ecchymoses, tenderness, and edema of R thigh with US concerning for large R femoral pseudoaneurysm. We evaluated the patient, there was a tender mass below the inguinal ligament in the R groin with extensive ecchymoses. No concerning skin changes or necrosis, distal pulses palpable, sensation and motor intact in lower extremity, thigh and leg was soft. R radial access site without abnormalities. ED contacted Dr. Covarrubias regarding findings and management of current condition. Dr. Covarrubias agreed to take over care. Please call vascular surgery with any further questions or concerns. Discussed with Dr. Lorraine Godoy MD Vascular surgery Nights/Consult: [phone] NoteHNO ID: [id number] Author: ATA TOSCANO MD Service: General Internal Medicine Author Type: Physician Type: Progress Notes Filed: 11/02/2023 13:51 Note Text: INTERNAL MEDICINE PROGRESS NOTE SERVICE DATE: 11/02/2023 SERVICE TIME: 1:50 PM ADMITTING PHYSICIAN: Ata Toscano MD CHIEF COMPLAINT Worsening SOB MEDICATIONS Current Facility-Administered Medications Medication Dose Route Frequency traZODone 50 mg tab(s) (DESYREL) 50 mg ORAL AT BEDTIME PRN furosemide 20 mg tab(s) (LASIX) 20 mg ORAL DAILY NaCl 0.9% iv flush bag 20 mL INTRAVENOUS PRN melatonin 6 mg tab(s) 6 mg ORAL AT BEDTIME PRN acetaminophen 500-1,000 mg tab(s) (TYLENOL) 500-1,000 mg ORAL q 6 H PRN ondansetron (PF) 4 mg injection (ZOFRAN) 4 mg INTRAVENOUS q 6 H PRN senna-docusate 8.6-50 mg 1-2 tablet (SENNA-S) 1-2 tablet ORAL BID PRN atorvastatin 40 mg tab(s) (LIPITOR) 40 mg ORAL DAILY hydrALAZINE 25 mg tab(s) (APRESOLINE) 25 mg ORAL q [address] 40 mg tab(s) (PROTONIX) 40 mg ORAL DAILY (6 AM) apixaban 5 mg tab(s) (ELIQUIS) 5 mg ORAL q 12 H liothyronine 5 mcg tab(s) (CYTOMEL) 5 mcg ORAL BEFORE BREAKFAST DAILY isosorbide mononitrate ER 30 mg tab(s) (IMDUR) 30 mg ORAL DAILY escitalopram oxalate 10 mg tab(s) (LEXAPRO) 10 mg ORAL DAILY aspirin, enteric coated 81 mg tab(s) 81 mg ORAL DAILY INTERVAL HISTORY OF PRESENT ILLNESS INTERVAL HPI: Feeling better, right groin hematoma is controlled PHYSICAL EXAM Patient Vitals for the past 24 hrs: BP Temp Temp src Pulse Resp SpO2 Weight 11/02/23 0748 110/58 36.6 ?C (97.9 ?F) Oral 62 16 97 % -- 11/02/23 0559 -- -- -- -- -- -- 84.4 kg (186 lb) 11/02/23 0344 125/51 36.6 ?C (97.9 ?F) Oral 66 18 96 % -- 11/01/23 2358 122/54 36.9 ?C (98.4 ?F) Oral 69 18 95 % -- 11/01/23 2146 -- -- -- -- -- -- 84.4 kg (186 lb) 11/01/23 1934 131/58 36.5 ?C (97.7 ?F) Oral 71 18 98 % -- 11/01/23 1556 120/53 36.4 ?C (97.5 ?F) Oral 62 18 94 % -- Body mass index is 32.95 kg/m?. DATA: Diagnostic tests reviewed for today's visit: Most recent labs and imaging results. ASSESSMENT AND PLAN Assessment/Plan SOB in the setting of chronic HFpEF, AF and severe MR. - CXR does not show any pulmonary congestion, euvolemic - Echocardiogram --> LVEF 67%,2+ MR, and 2+ AI - Continue Eliquis - Cardiac cath was done today, results were reviewed with patient in details. - Cardiology recommended holding BB due to bradycardia - Planning MVR as outpatient LAY (acute kidney injury). Cr is back at baseline DC on current dose of Lasix Losartan can be restarted as outpatient, continue to hold, especially after cardiac cath. Renal US: No hydronephrosis or renal stones UA no proteinuria Discharge. Discharge home today F/U with Dr. Covarrubias for future MV repain Medication and Non-Pharmacologic VTE Prophylaxis/Anticoagulants Anticoagulant AND Antiplatelet Medications (From admission, onward) Start Dose Route Frequency Last Action Ordered Stop 10/27/23 0900 aspirin, enteric coated 81 mg tab(s) 81 mg ORAL DAILY Given, 11/01 0939 10/27/23 0106 -- 10/27/23 0100 apixaban 5 mg tab(s) (ELIQUIS) 5 mg ORAL EVERY 12 HOURS Given, 11/01 0939 10/27/23 0037 -- VTE Prophylaxis: VTE prophylaxis appropriate SIGNATURE: Ata Toscano MD PATIENT NAME: Cece Hubbard DATE: November 02, 2023 TIME: 1:50 PM [id number] NoteHNO ID: [id number] Author: ATA TOSCANO MD Service: General Internal Medicine Author Type: Physician Type: Progress Notes Filed: 11/01/2023 14:43 Note Text: INTERNAL MEDICINE PROGRESS NOTE SERVICE DATE: 11/01/2023 SERVICE TIME: 2:40 PM ADMITTING PHYSICIAN: Ata Toscano MD CHIEF COMPLAINT Worsening SOB MEDICATIONS Current Facility-Administered Medications Medication Dose Route Frequency furosemide 20 mg tab(s) (LASIX) 20 mg ORAL DAILY NaCl 0.9% iv flush bag 20 mL INTRAVENOUS PRN melatonin 6 mg tab(s) 6 mg ORAL AT BEDTIME PRN acetaminophen 500-1,000 mg tab(s) (TYLENOL) 500-1,000 mg ORAL q 6 H PRN ondansetron (PF) 4 mg injection (ZOFRAN) 4 mg INTRAVENOUS q 6 H PRN senna-docusate 8.6-50 mg 1-2 tablet (SENNA-S) 1-2 tablet ORAL BID PRN atorvastatin 40 mg tab(s) (LIPITOR) 40 mg ORAL DAILY hydrALAZINE 25 mg tab(s) (APRESOLINE) 25 mg ORAL q [address] 40 mg tab(s) (PROTONIX) 40 mg ORAL DAILY (6 AM) apixaban 5 mg tab(s) (ELIQUIS) 5 mg ORAL q 12 H liothyronine 5 mcg tab(s) (CYTOMEL) 5 mcg ORAL BEFORE BREAKFAST DAILY isosorbide mononitrate ER 30 mg tab(s) (IMDUR) 30 mg ORAL DAILY escitalopram oxalate 10 mg tab(s) (LEXAPRO) 10 mg ORAL DAILY aspirin, enteric coated 81 mg tab(s) 81 mg ORAL DAILY INTERVAL HISTORY OF PRESENT ILLNESS INTERVAL HPI: Fee;ing well, but her right groin hematoma is enlarging PHYSICAL EXAM Patient Vitals for the past 24 hrs: BP Temp Temp src Pulse Resp SpO2 Weight 11/01/23 1148 111/53 36.7 ?C (98.1 ?F) Oral (!) 57 16 98 % -- 11/01/23 1026 126/52 -- -- (!) 57 -- -- -- 11/01/23 1024 123/61 -- -- 61 -- -- -- 11/01/23 1023 113/62 -- -- 62 -- -- -- 11/01/23 0916 93/54 36.4 ?C (97.5 ?F) -- (!) 58 -- 98 % -- 11/01/23 0756 97/76 36.5 ?C (97.7 ?F) Oral 67 18 98 % -- 11/01/23 0545 -- -- -- -- -- -- 84.7 kg (186 lb 11.7 oz) 11/01/23 0400 113/52 36.9 ?C (98.4 ?F) Oral (!) 57 15 95 % -- 10/31/23 2353 117/66 36.9 ?C (98.4 ?F) Oral (!) 59 16 97 % -- 10/31/23 1929 101/59 36.5 ?C (97.7 ?F) Oral (!) 56 14 98 % -- 10/31/23 1647 (!) 109/44 36.2 ?C (97.1 ?F) Oral (!) 51 20 94 % -- 10/31/23 1600 91/53 -- -- (!) 50 16 96 % -- 10/31/23 1545 -- -- -- (!) 50 19 97 % -- 10/31/23 1530 107/65 -- -- (!) 53 15 99 % -- 10/31/23 1515 132/101 -- -- (!) 54 15 99 % -- 10/31/23 1500 114/53 -- -- (!) 55 17 100 % -- 10/31/23 1445 97/59 -- -- (!) 52 13 96 % -- Body mass index is 33.08 kg/m?. DATA: Diagnostic tests reviewed for today's visit: Most recent labs and imaging results. ASSESSMENT AND PLAN Assessment/Plan SOB in the setting of chronic HFpEF, AF and severe MR. - CXR does not show any pulmonary congestion, euvolemic - Echocardiogram --> LVEF 67%,2+ MR, and 2+ AI - Continue Eliquis - Cardiac cath was done today, results were reviewed with patient in details. - Cardiology recommended holding BB due to bradycardia - Planning MVR as outpatient LAY (acute kidney injury). Cr is back at baseline DC on current dose of Lasix Losartan can be restarted as outpatient, continue to hold, especially after cardiac cath. Renal US: No hydronephrosis or renal stones UA no proteinuria Discharge. Discharge held today due to groin hematoma, to be monitored overnight Medication and Non-Pharmacologic VTE Prophylaxis/Anticoagulants Anticoagulant AND Antiplatelet Medications (From admission, onward) Start Dose Route Frequency Last Action Ordered Stop 10/27/23 0900 aspirin, enteric coated 81 mg tab(s) 81 mg ORAL DAILY Given, 10/31 1030 10/27/23 0106 -- 10/27/23 0100 apixaban 5 mg tab(s) (ELIQUIS) 5 mg ORAL EVERY 12 HOURS Given, 10/31 1030 10/27/23 0037 -- VTE Prophylaxis: VTE prophylaxis appropriate SIGNATURE: Ata Toscano MD PATIENT NAME: Cece Hubbard DATE: November 01, 2023 TIME: 2:40 PM PAGER/CONTACT #:[facility] [id number] NoteHNO ID: [id number] Author: ATA TOSCANO MD Service: General Internal Medicine Author Type: Physician Type: Progress Notes Filed: 10/31/2023 17:12 Note Text: INTERNAL MEDICINE PROGRESS NOTE SERVICE DATE: 10/31/2023 SERVICE TIME: 5:03 PM ADMITTING PHYSICIAN: Ata Toscano MD CHIEF COMPLAINT Worsening SOB MEDICATIONS Current Facility-Administered Medications Medication Dose Route Frequency furosemide 20 mg tab(s) (LASIX) 20 mg ORAL DAILY NaCl 0.9% iv flush bag 20 mL INTRAVENOUS PRN melatonin 6 mg tab(s) 6 mg ORAL AT BEDTIME PRN acetaminophen 500-1,000 mg tab(s) (TYLENOL) 500-1,000 mg ORAL q 6 H PRN ondansetron (PF) 4 mg injection (ZOFRAN) 4 mg INTRAVENOUS q 6 H PRN senna-docusate 8.6-50 mg 1-2 tablet (SENNA-S) 1-2 tablet ORAL BID PRN atorvastatin 40 mg tab(s) (LIPITOR) 40 mg ORAL DAILY hydrALAZINE 25 mg tab(s) (APRESOLINE) 25 mg ORAL q [address] 40 mg tab(s) (PROTONIX) 40 mg ORAL DAILY (6 AM) apixaban 5 mg tab(s) (ELIQUIS) 5 mg ORAL q 12 H liothyronine 5 mcg tab(s) (CYTOMEL) 5 mcg ORAL BEFORE BREAKFAST DAILY isosorbide mononitrate ER 30 mg tab(s) (IMDUR) 30 mg ORAL DAILY escitalopram oxalate 10 mg tab(s) (LEXAPRO) 10 mg ORAL DAILY aspirin, enteric coated 81 mg tab(s) 81 mg ORAL DAILY sodium chloride 0.9 % (flush) 2-10 mL (BD POSIFLUSH) 2-10 mL INTRAVENOUS DIRECTED PRN And perflutren lipid microspheres 1.1 mg/mL 1.3 mL injection (DEFINITY) 1.3 mL INTRAVENOUS DIRECTED PRN INTERVAL HISTORY OF PRESENT ILLNESS INTERVAL HPI: Feeling well, no new issues overnight. SOB has improved. PHYSICAL EXAM Patient Vitals for the past 24 hrs: BP Temp Temp src Pulse Resp SpO2 10/31/23 1647 (!) 109/44 36.2 ?C (97.1 ?F) Oral (!) 51 20 94 % 10/31/23 1600 91/53 -- -- (!) 50 16 96 % 10/31/23 1545 -- -- -- (!) 50 19 97 % 10/31/23 1530 107/65 -- -- (!) 53 15 99 % 10/31/23 1515 132/101 -- -- (!) 54 15 99 % 10/31/23 1500 114/53 -- -- (!) 55 17 100 % 10/31/23 1445 97/59 -- -- (!) 52 13 96 % 10/31/23 1430 92/74 -- -- (!) 48 17 97 % 10/31/23 1420 92/74 -- -- (!) 53 18 100 % 10/31/23 1400 113/71 -- -- (!) 59 14 100 % 10/31/23 1345 115/59 -- -- (!) 59 16 100 % 10/31/23 1330 135/72 -- -- (!) 55 13 100 % 10/31/23 1315 124/66 -- -- (!) 58 14 98 % 10/31/23 1300 121/64 -- -- (!) 59 15 100 % 10/31/23 1245 136/64 -- -- (!) 56 13 100 % 10/31/23 0739 121/56 36.3 ?C (97.3 ?F) Oral (!) 48 16 97 % 10/31/23 0419 120/56 36.5 ?C (97.7 ?F) Oral (!) 52 16 98 % 10/31/23 0033 100/51 36.7 ?C (98.1 ?F) Oral (!) 51 16 97 % 10/30/23 1946 109/54 36.6 ?C (97.9 ?F) Oral (!) 51 15 98 % Body mass index is 33.09 kg/m?. DATA: Diagnostic tests reviewed for today's visit: Most recent labs and imaging results. ASSESSMENT AND PLAN Assessment/Plan SOB in the setting of chronic HFpEF, AF and severe MR. - CXR does not show any pulmonary congestion, euvolemic - Echocardiogram --> LVEF 67%,2+ MR, and 2+ AI - Continue Eliquis - Awaiting cardiology input - Cardiac cath was done today, results are not dictated yet. - Cardiology recommended holding BB due to bradycardia - Planning MVR as outpatient LAY (acute kidney injury). Cr is back at baseline DC on current dose of Lasix Losartan can be restarted as outpatient, continue to hold, especially after cardiac cath. Renal US: No hydronephrosis or renal stones UA no proteinuria Discharge. Home tomorrow Medication and Non-Pharmacologic VTE Prophylaxis/Anticoagulants Anticoagulant AND Antiplatelet Medications (From admission, onward) Start Dose Route Frequency Last Action Ordered Stop 10/27/23 0900 aspirin, enteric coated 81 mg tab(s) 81 mg ORAL DAILY Given, 10/30 0832 10/27/23 0106 -- 10/27/23 0100 apixaban 5 mg tab(s) (ELIQUIS) 5 mg ORAL EVERY 12 HOURS Given, 10/30 93010/27/23 0037 -- VTE Prophylaxis: VTE prophylaxis appropriate SIGNATURE: Ata Toscano MD PATIENT NAME: Cece Hubbard DATE: October 31, 2023 TIME: 5:03 PM PAGER[facility]CONTACT #:[facility] [id number] Miscellaneous Notes* Telephone Encounter - Rayo Gonzalez - 10/31/2023 4:30 PM EDT IN * Telephone Encounter - Karis Ware - 10/31/2023 4:17 PM EDT Please advise whether the patient's insurance is in network Thank you! documented in [facility]Reg[facility]24 NoteHNO ID: [id number] Author: ABILIO ALLRED APRN.CNP Service: General Internal Medicine Author Type: Nurse Practitioner Type: Plan of Care Filed: 10/31/2023 14:06 Note Text: This is a 78-year-old female with a past medical history significant for hypertension, hyperlipidemia, hypothyroidism, heart failure preserved ejection fraction, CAD status post PCI to the LAD and RCA, moderate to severe mitral regurgitation and recent atrial fibrillation on Eliquis who presented to the emergency room with complaints of worsening shortness of breath, primarily with worsening dyspnea of minimal exertion. Of note, she follows with cardiology in [place] but has been seeking care at [facility] for symptomatic MR and evaluation for MVR with appointment scheduled 11/21/[address] Hermosillo. At presentation, CXR was normal. Serum creatinine mildly elevated at 1.6 from baseline ~ 1.3, EKG showed sinus rhythm. Admitted for cardiology evaluation. BNP 456 but not appearing fluid overloaded or in acute CHF. Patient's shortness of breath improved with supplemental oxygen and did not appear to be acute CHF. Seen by cardiology. Echo ordered and awaiting results. Request made for OSH Echo ([place]) for Cardiology to evaluate. Losartan on hold due to LAY. Continues on Amiodarone, Eliquis, Asprin, Statin, Imdur, Hydralazine, and PO lasix. 10/29/23 Cardiology recs to d/c Amiodarone. Based on the results of the echo we will consider repeat VIOLA and if this shows severe MR she will be considered for right and left heart catheterization. Nephrology c/s for LAY on CKD III. Hold Lasix for 2-3 days. IVF challenge. 10/30/23 Patient remained stable. Scheduled right and left heart cath with Dr. Covarrubias on Tuesday, November 07, 2023 at 9:30 AM. Instructed patient to hold Eliquis for 48 hours prior to procedure. nephrology evaluated the patient today, patient's creatinine trending down. Recommended to resume Lasix 20 mg daily on October 30, hold ARB for now 10/31/23 Patient remained stable, although bradycardic, heart rate went down to 50s and 40s. Discussed with Dr. Covarrubias. Stopped metoprolol. Patient agreed for left and right heart catheterization. On October 31, 2023 patient under went left and right heart catheterization. Plan: -Original plan was to discharge patient home, and perform left and right heart catheterization on November 06. Discharge workup initiated. However, patient agreed to have right and left heart catheterization here in the hospital. -Will monitor the patient after the catheterization, and discharge home if cleared by cardiology and the attending. Abilio Allred APRN.[facility]03-22-2024 NoteHNO ID: [id number] Author: ATA TOSCANO MD Service: General Internal Medicine Author Type: Physician Type: Progress Notes Filed: 10/30/2023 22:37 Note Text: INTERNAL MEDICINE PROGRESS NOTE SERVICE DATE: 10/30/2023 SERVICE TIME: 10:23 PM ADMITTING PHYSICIAN: Ata Toscano MD CHIEF COMPLAINT Worsening SOB MEDICATIONS Current Facility-Administered Medications Medication Dose Route Frequency metoprolol succinate ER 25 mg tab(s) (TOPROL XL) 25 mg ORAL DAILY NaCl 0.9% iv flush bag 20 mL INTRAVENOUS PRN melatonin 6 mg tab(s) 6 mg ORAL AT BEDTIME PRN acetaminophen 500-1,000 mg tab(s) (TYLENOL) 500-1,000 mg ORAL q 6 H PRN ondansetron (PF) 4 mg injection (ZOFRAN) 4 mg INTRAVENOUS q 6 H PRN senna-docusate 8.6-50 mg 1-2 tablet (SENNA-S) 1-2 tablet ORAL BID PRN atorvastatin 40 mg tab(s) (LIPITOR) 40 mg ORAL DAILY hydrALAZINE 25 mg tab(s) (APRESOLINE) 25 mg ORAL q [address] 40 mg tab(s) (PROTONIX) 40 mg ORAL DAILY (6 AM) apixaban 5 mg tab(s) (ELIQUIS) 5 mg ORAL q 12 H liothyronine 5 mcg tab(s) (CYTOMEL) 5 mcg ORAL BEFORE BREAKFAST DAILY isosorbide mononitrate ER 30 mg tab(s) (IMDUR) 30 mg ORAL DAILY escitalopram oxalate 10 mg tab(s) (LEXAPRO) 10 mg ORAL DAILY aspirin, enteric coated 81 mg tab(s) 81 mg ORAL DAILY sodium chloride 0.9 % (flush) 2-10 mL (BD POSIFLUSH) 2-10 mL INTRAVENOUS DIRECTED PRN And perflutren lipid microspheres 1.1 mg/mL 1.3 mL injection (DEFINITY) 1.3 mL INTRAVENOUS DIRECTED PRN INTERVAL HISTORY OF PRESENT ILLNESS INTERVAL HPI: SOB has improved PHYSICAL EXAM Patient Vitals for the past 24 hrs: BP Temp Temp src Pulse Resp SpO2 Weight 10/30/23 1946 109/54 36.6 ?C (97.9 ?F) Oral (!) 51 15 98 % -- 10/30/23 1614 101/62 36.5 ?C (97.7 ?F) Oral (!) 51 18 97 % -- 10/30/23 1134 117/57 36.3 ?C (97.3 ?F) Oral (!) 49 18 97 % -- 10/30/23 0734 142/50 -- Oral (!) 57 18 96 % -- 10/30/23 0441 125/69 36.5 ?C (97.7 ?F) Oral (!) 54 16 97 % 84.7 kg (186 lb 12.8 oz) Body mass index is 33.09 kg/m?. DATA: Diagnostic tests reviewed for today's visit: Most recent labs and imaging results. ASSESSMENT AND PLAN Assessment/Plan SOB in the setting of chronic HFpEF, AF and severe MR. - CXR does not show any pulmonary congestion, euvolemic - Echocardiogram --> LVEF 67%,2+ MR, and 2+ AI - Continue Amiodarone and Eliquis - Awaiting cardiology input - Cardiac cath by cardiology LAY (acute kidney injury). Cr is back at baseline Lasix can be restarted Losartan can be restarted as outpatient, continue to hold. Renal US: No hydronephrosis or renal stones UA no proteinuria Medication and Non-Pharmacologic VTE Prophylaxis/Anticoagulants Anticoagulant AND Antiplatelet Medications (From admission, onward) Start Dose Route Frequency Last Action Ordered Stop 10/27/23 0900 aspirin, enteric coated 81 mg tab(s) 81 mg ORAL DAILY Given, 10/29 0810/27/23 0106 -- 10/27/23 0100 apixaban 5 mg tab(s) (ELIQUIS) 5 mg ORAL EVERY 12 HOURS Given, 10/29 202810/27/23 0037 -- VTE Prophylaxis: VTE prophylaxis appropriate SIGNATURE: Ata Toscano MD PATIENT NAME: Cece Hubbard DATE: October 30, 2023 TIME: 10:23 PM [id number] NoteO ID: [id number] Author: ABILIO ALLRED APRN.CNP Service: General Internal Medicine Author Type: Nurse Practitioner Type: Plan of Care Filed: 10/30/2023 22:02 Note Text: INTERNAL MEDICINE PLAN OF CARE SERVICE DATE: 10/30/2023 SERVICE TIME: 1530 ADMITTING PHYSICIAN: Ata Toscano MD Subjective CHIEF COMPLAINT: Some shortness of breath NIGHT AND WEEKEND COVERAGE: [employer] 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 She is anxious about the future procedure, and she would like to talk to cardiology prior to discharge to make sure that everything is okay. CONSULTANTS: Cardiology, nephrology HOSPITAL COURSE: 78-year-old female with a past medical history significant for hypertension, hyperlipidemia, hypothyroidism, heart failure preserved ejection fraction, CAD status post PCI to the LAD and RCA, moderate to severe mitral regurgitation and recent atrial fibrillation on Eliquis who presented to the emergency room with complaints of worsening shortness of breath, primarily with worsening dyspnea of minimal exertion. Of note, she follows with cardiology in [place] but has been seeking care at [facility] for symptomatic MR and evaluation for MVR with appointment scheduled 11/21/[address] Hermosillo. At presentation, CXR was normal. Serum creatinine mildly elevated at 1.6 from baseline ~ 1.3, EKG showed sinus rhythm. Admitted for cardiology evaluation. BNP 456 but not appearing fluid overloaded or in acute CHF. Patient's shortness of breath improved with supplemental oxygen and did not appear to be acute CHF. Seen by cardiology. Echo ordered and awaiting results. Request made for OSH Echo ([place]) for Cardiology to evaluate. Losartan on hold due to LAY. Continues on Amiodarone, Eliquis, Asprin, Statin, Imdur, Hydralazine, and PO lasix. 10/29/23 Cardiology recs to d/c Amiodarone. Based on the results of the echo we will consider repeat VIOLA and if this shows severe MR she will be considered for right and left heart catheterization. Nephrology c/s for LAY on CKD III. Hold Lasix for 2-3 days. IVF challenge. 10/30/23 Patient remained stable. Scheduled right and left heart cath with Dr. Covarrubias on Friday, November 07, 2023 at 9:30 AM. Instructed patient to hold Eliquis for 48 hours prior to procedure. nephrology evaluated the patient today, patient's creatinine trending down. Recommended to resume Lasix 20 mg daily on October 30, hold ARB for now PHYSICAL EXAM: Physical Exam BP 109/54 Pulse (!) 51 Temp 36.6 ?C (97.9 ?F) (Oral) Resp 15 Ht 160 cm (5' 3 ) Wt 84.7 kg (186 lb 12.8 oz) SpO2 98% BMI 33.09 kg/m? Body mass index is 33.09 kg/m?. Lines, Drains, and Airways Line Duration Peripheral 10/28/23 1017 Right Forearm 22 Gauge 2 days ASSESSMENT/PLAN: * Severe mitral regurgitation- (present on admission) - Per outpatient [place] records h/o moderate-severe MR - Presents with worsening SOB, primarily on minimal exertion - Not in acute CHF - Patient's shortness of breath improved with supplemental - Will obtain desat study prior to discharge to assess if qualifies for home O2 - Seen by cardiology. Cardiology recs to d/c Amiodarone. Based on the results of the echo we will consider repeat VIOLA and if this shows severe MR she will be considered for right and left heart catheterization. - Request made for OSH Echo ([place]) for Cardiology to evaluate. - Await final recommendations from Cardiology - Losartan on hold due to LAY. - Hold Lasix - Strict I/Os and daily weights - Has appointment scheduled 11/21/[address] Hermosillo to evaluate for MVR Atrial fibrillation (HCC)- (present on admission) - Recent diagnosis as of Sep 2023 - In sinus rhythm on Amiodarone - d/c Amiodarone as per Cardiology - c/w Eliquis - Telemetry - TSH is 4.7, patient is on levothyroxine - Cardiology following here LAY (acute kidney injury) (HCC)- (present on admission) - Mild LAY on ?CKD 2/3 - sCR 1.6; baseline 1.2-1.3 - sCR improved to 1.5 (10/27) - Renal Ultrasound normal - Holding Losartan Nephrology c/s for LAY on CKD III. Hold Lasix for 2-3 days. IVF challenge. CAD (coronary artery disease)- (present on admission) - s/p BRITTNEY to LAD and RCA in 2019 - No chest pain - Continue ASA, Statin, Imdur - Not on BB d/t fatigue and bradycardia - Continue telemetry - Cardiology following DISPO: Home tomorrow I spent a total of 70 minutes on the date of the service which included preparing to see the patient, [id number] patient care, completing clinical documentation, obtaining and/or reviewing separately obtained history, performing a medically appropriate examination, counseling and educating the patient/family/caregiver, ordering medications, tests, or procedures, communicating with other HCPs (not separately reported), independently interpreting results (not separately reported), commu (more content not included)...[facility] [id number] NoteHNO ID: [id number] Author: CHELSEA DIAZ RN Service: Care Management Author Type: Registered Nurse Type: Care Mgt Progress Note Filed: 10/30/2023 14:04 Note Text: CARE MANAGEMENT PROGRESS NOTE SERVICE DATE: 10/30/2023 SERVICE TIME: 2:04 PM LOS: 3 days Current Advance Directive: Health Care Power of Digital Technician (HPOA updated/completed today, scanned to AD fax line) In Chart: No SIGNATURE: Chelsea Diaz RN PATIENT NAME: Cece Hubbard DATE: October 30, 2023 TIME: 2:04 PM PAGER/CONTACT #: [phone] NoteHNO ID: [id number] Author: ?, ?, ? Service: Care Management Author Type: ? Type: Care Mgt Progress Note Filed: 10/30/2023 11:54 Note Text: CARE MANAGEMENT PROGRESS NOTE SERVICE DATE: 10/30/2023 SERVICE TIME: 1055 LOS: 3 days IMM Follow Up Copy Given: Yes Copy given to:: Patient Method: In Person SIGNATURE: Jessica FAROOQ PATIENT NAME: Cece Hubbard DATE: October 30, 2023 TIME: 11:53 AM PAGER/CONTACT #: [phone] NoteHNO ID: [id number] Author: ALPA MARTINEZ APRN.[facility] Service: Cardiovascular Medicine Author Type: Nurse Practitioner Type: Plan of Care Filed: 10/30/2023 11:49 Note Text: Cardiology Saw patient at bedside to discuss scheduling right AND left heart cath with Dr Covarrubias Scheduled for Friday11/07/2023 at 9:30 am (arrive at 8:am) Pt to hold eliquis x 48 hrs prior to procedure Further directions in discharge Ok with cardiology to be discharged if ok with primary team Alpa Martinez APRN.[facility]03-21-2024 NoteHNO ID: [id number] Author: CHELSEA DIAZ RN Service: Care Management Author Type: Registered Nurse Type: Care Mgt Progress Note Filed: 10/30/2023 11:23 Note Text: CARE MANAGEMENT PROGRESS NOTE SERVICE DATE: 10/30/2023 SERVICE TIME: 11:21 AM LOS: 3 days Post-Acute Discharge Planning Patient Goal(s): General wellness, Be able to go home [place] Explained: [place] Given: No Reason Not Given: No placements necessary Discharge Planning Participant(s): Patient Anticipated # of Days Until Discharge: 1 Transport at Discharge: Transportation Arrangements: Car Destination: Home Needs Prior to Discharge: Needs Prior to Discharge: None, Other: See Comment (medical clearance) Post-Acute Discharge Plan: Home with no skilled needs. Spouse will provide DC transport home. She is working on updating her HPOA, provided document. She would like to add her daughter. Will complete prior to her DC. Met with pt at bedside, she is hopeful for DC today. Awaiting medical clearance. SIGNATURE: Chelsea Diaz RN PATIENT NAME: Cece Hubbard DATE: October 30, 2023 TIME: 11:21 AM PAGER/CONTACT #: [phone] NoteHNO ID: [id number] Author: ATA TOSCANO MD Service: General Internal Medicine Author Type: Physician Type: Progress Notes Filed: 10/29/2023 22:07 Note Text: INTERNAL MEDICINE PROGRESS NOTE SERVICE DATE: 10/29/2023 SERVICE TIME: 10:04 PM ADMITTING PHYSICIAN: Ata Toscano MD CHIEF COMPLAINT Worsening SOB MEDICATIONS Current Facility-Administered Medications Medication Dose Route Frequency metoprolol succinate ER 25 mg tab(s) (TOPROL XL) 25 mg ORAL DAILY NaCl 0.9% iv flush bag 20 mL INTRAVENOUS PRN melatonin 6 mg tab(s) 6 mg ORAL AT BEDTIME PRN acetaminophen 500-1,000 mg tab(s) (TYLENOL) 500-1,000 mg ORAL q 6 H PRN ondansetron (PF) 4 mg injection (ZOFRAN) 4 mg INTRAVENOUS q 6 H PRN senna-docusate 8.6-50 mg 1-2 tablet (SENNA-S) 1-2 tablet ORAL BID PRN atorvastatin 40 mg tab(s) (LIPITOR) 40 mg ORAL DAILY hydrALAZINE 25 mg tab(s) (APRESOLINE) 25 mg ORAL q [address] 40 mg tab(s) (PROTONIX) 40 mg ORAL DAILY (6 AM) apixaban 5 mg tab(s) (ELIQUIS) 5 mg ORAL q 12 H liothyronine 5 mcg tab(s) (CYTOMEL) 5 mcg ORAL BEFORE BREAKFAST DAILY isosorbide mononitrate ER 30 mg tab(s) (IMDUR) 30 mg ORAL DAILY escitalopram oxalate 10 mg tab(s) (LEXAPRO) 10 mg ORAL DAILY aspirin, enteric coated 81 mg tab(s) 81 mg ORAL DAILY sodium chloride 0.9 % (flush) 2-10 mL (BD POSIFLUSH) 2-10 mL INTRAVENOUS DIRECTED PRN And perflutren lipid microspheres 1.1 mg/mL 1.3 mL injection (DEFINITY) 1.3 mL INTRAVENOUS DIRECTED PRN INTERVAL HISTORY OF PRESENT ILLNESS INTERVAL HPI: Feeling better, no new issues overnight PHYSICAL EXAM Patient Vitals for the past 24 hrs: BP Temp Temp src Pulse Resp SpO2 Weight 10/29/232032 -- -- -- -- -- -- 84.4 kg (186 lb) 10/29/23 1907 108/73 36.3 ?C (97.3 ?F) Axillary (!) 59 18 96 % -- 10/29/23 1526 131/55 -- -- (!) 55 -- 96 % -- 10/29/23 1239 130/60 36.5 ?C (97.7 ?F) Oral (!) 59 18 96 % -- 10/29/23 0746 133/66 36.7 ?C (98.1 ?F) Oral (!) 55 18 95 % -- 10/29/23 0521 -- -- -- -- -- -- 84.5 kg (186 lb 4.6 oz) 10/29/23 0312 126/62 36.4 ?C (97.5 ?F) Oral (!) 56 18 95 % -- 10/29/23 0037 -- -- -- -- -- -- 84.5 kg (186 lb 4.6 oz) 10/28/23 2259 133/57 36.5 ?C (97.7 ?F) Oral 60 18 96 % -- Body mass index is 32.95 kg/m?. DATA: Diagnostic tests reviewed for today's visit: Most recent labs and imaging results. ASSESSMENT AND PLAN Assessment/Plan SOB in the setting of chronic HFpEF, AF and severe MR. - CXR does not show any pulmonary congestion, euvolemic - Echocardiogram --> LVEF 67%,2+ MR, and 2+ AI - Continue Amiodarone and Eliquis - Awaiting cardiology input LAY (acute kidney injury). Current Cr is trending down with holding Lasix Fluid challange Renal US: No hydronephrosis or renal stones UA no proteinuria Medication and Non-Pharmacologic VTE Prophylaxis/Anticoagulants Anticoagulant AND Antiplatelet Medications (From admission, onward) Start Dose Route Frequency Last Action Ordered Stop 10/27/23 0900 aspirin, enteric coated 81 mg tab(s) 81 mg ORAL DAILY Given, 10/28 0833 10/27/23 0106 -- 10/27/23 0100 apixaban 5 mg tab(s) (ELIQUIS) 5 mg ORAL EVERY 12 HOURS Given, 10/28 201210/27/23 0037 -- VTE Prophylaxis: VTE prophylaxis appropriate SIGNATURE: Ata Toscano MD PATIENT NAME: Cece Hubbard DATE: October 29, 2023 TIME: 10:04 PM PAGER/CONTACT #:[facility] [id number] NoteHNO ID: [id number] Author: CHELSEA DIAZ RN Service: Care Management Author Type: Registered Nurse Type: Care Mgt Progress Note Filed: 10/29/2023 15:39 Note Text: CARE MANAGEMENT PROGRESS NOTE SERVICE DATE: 10/29/2023 SERVICE TIME: 3:35 PM LOS: 2 days Post-Acute Discharge Planning Patient Goal(s): General wellness, Be able to go home [place] Explained: [place] Given: No Reason Not Given: No placements necessary Discharge Planning Participant(s): Patient Anticipated # of Days Until Discharge: (TBD) Transport at Discharge: Transportation Arrangements: Car Date of Trip: (TBD) Destination: Home Needs Prior to Discharge: Needs Prior to Discharge: None Post-Acute Discharge Plan: Met with pt at bedside for CM follow up. Pt is pleasant and talkative. She denies concern for home going and will have no skilled needs upon DC. Her spouse will provide her DC transport home. She denies SOB upon my visit but states she did get SOB upn ambulating in the halls. She has remained on RA. Cardiology following; pt has questions about timing of her recommended heart cath. I encouraged her to speak with cardiology about this. She wishes to establish at [facility]. Nephrology was consulted for rising creatnine, following labs. 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 CONSULTANTS: Cardiology HOSPITAL COURSE: 78-year-old female with a past medical history significant for hypertension, hyperlipidemia, hypothyroidism, heart failure preserved ejection fraction, CAD status post PCI to the LAD and RCA, moderate to severe mitral regurgitation and recent atrial fibrillation on Eliquis who presented to the emergency room with complaints of worsening shortness of breath, primarily with worsening dyspnea of minimal exertion. Of note, she follows with cardiology in [place] but has been seeking care at [facility] for symptomatic MR and evaluation for MVR with appointment scheduled 11/21/[address] Hermosillo. At presentation, CXR was normal. Serum creatinine mildly elevated at 1.6 from baseline ~ 1.3, EKG showed sinus rhythm. Admitted for cardiology evaluation. BNP 456 but not appearing fluid overloaded or in acute CHF. Patient's shortness of breath improved with supplemental oxygen and did not appear to be acute CHF. Seen by cardiology. Echo ordered and awaiting results. Request made for OSH Echo ([place]) for Cardiology to evaluate. Losartan on hold due to LAY. Continues on Amiodarone, Eliquis, Asprin, Statin, Imdur, Hydralazine, and PO lasix. 10/29/23 Cardiology recs to d/c Amiodarone. Based on the results of the echo we will consider repeat VIOLA and if this shows severe MR she will be considered for right and left heart catheterization. Nephrology c/s for LAY on CKD III. Hold Lasix for 2-3 days. IVF challenge. PHYSICAL EXAM: Physical Exam BP 130/60 Pulse (!) 59 Temp 36.5 ?C (97.7 ?F) (Oral) Resp 18 Ht 160 cm (5' 3 ) Wt 84.5 kg (186 lb 4.6 oz) SpO2 96% BMI 33.00 kg/m? Body mass index is 33 kg/m?. Lines, Drains, and Airways Line Duration Peripheral 10/28/23 1017 Right Forearm 22 Gauge 1 day ASSESSMENT/PLAN: * Severe mitral regurgitation- (present on admission) - Per outpatient [facility] records h/o moderate-severe MR - Presents with worsening SOB, primarily on minimal exertion - Not in acute CHF - Patient's shortness of breath improved with supplemental - Will obtain desat study prior to discharge to assess if qualifies for home O2 - Seen by cardiology. Cardiology recs to d/c Amiodarone. Based on the results of the echo we will consider repeat VIOLA and if this shows severe MR she will be considered for right and left heart catheterization. - Request made for OSH Echo ([place]) for Cardiology to evaluate. - Await final recommendations from Cardiology - Losartan on hold due to LAY. - Hold Lasix - Strict I/Os and daily weights - Has appointment scheduled 11/21/[address] Hermosillo to evaluate for MVR Atrial fibrillation (HCC)- (present on admission) - Recent diagnosis as of Sep 2023 - In sinus rhythm on Amiodarone - d/c Amiodarone as per Cardiology - c/w Eliquis - Telemetry - TSH is 4.7, patient is on levothyroxine - Cardiology following here LAY (acute kidney injury) (HCC)- (present on admission) - Mild LAY on ?CKD 2/3 - sCR 1.6; baseline 1.2-1.3 - sCR improved to 1.5 (10/27) - Renal Ultrasound normal - Holding Losartan Nephrology c/s for LAY on CKD III. Hold Lasix for 2-3 days. IVF challenge. CAD (coronary artery disease)- (present on admission) - s/p BRITTNEY to LAD and RCA in 2019 - No chest pain - Continue ASA, Statin, Imdur - Not on BB d/t fatigue and bradycardia - Continue telemetry - Cardiology following DISPO: Home I spent a total of 70 minutes on the date of the service which included preparing to see the patient, [id number] patient care, completing clinical documentation, obtaining and/or reviewing separately obtained history, performing a medically appropriate examination, counseling and educating the patient/family/caregiver, ordering medications, tests, or procedures, communicating with other HCPs (not separately reported), independently interpreting results (not separately reported), communicating results to the patient/family/caregiver, and care coordination (not separately reported). SIGNATURE: Abilio Allred APRN.CNP PATIENT NAME: Cece Hubbard DATE: October 29, 2023 TIME: 3:07 PM PHONE: [phone] NoteHNO ID: [id number] Author: ATA TOSCANO MD Service: General Internal Medicine Author Type: Physician Type: Progress Notes Filed: 10/28/2023 22:56 Note Text: INTERNAL MEDICINE PROGRESS NOTE SERVICE DATE: 10/28/2023 SERVICE TIME: 10:51 PM ADMITTING PHYSICIAN: Ata Toscano MD CHIEF COMPLAINT Worsening SOB MEDICATIONS Current Facility-Administered Medications Medication Dose Route Frequency NaCl 0.9% iv flush bag 20 mL INTRAVENOUS PRN melatonin 6 mg tab(s) 6 mg ORAL AT BEDTIME PRN acetaminophen 500-1,000 mg tab(s) (TYLENOL) 500-1,000 mg ORAL q 6 H PRN ondansetron (PF) 4 mg injection (ZOFRAN) 4 mg INTRAVENOUS q 6 H PRN senna-docusate 8.6-50 mg 1-2 tablet (SENNA-S) 1-2 tablet ORAL BID PRN atorvastatin 40 mg tab(s) (LIPITOR) 40 mg ORAL DAILY hydrALAZINE 25 mg tab(s) (APRESOLINE) 25 mg ORAL q 12 H furosemide 20 mg tab(s) (LASIX) 20 mg ORAL DAILY pantoprazole DR 40 mg tab(s) (PROTONIX) 40 mg ORAL DAILY (6 AM) amiodarone 200 mg tab(s) (PACERONE) 200 mg ORAL q 12 H apixaban 5 mg tab(s) (ELIQUIS) 5 mg ORAL q 12 H liothyronine 5 mcg tab(s) (CYTOMEL) 5 mcg ORAL BEFORE BREAKFAST DAILY isosorbide mononitrate ER 30 mg tab(s) (IMDUR) 30 mg ORAL DAILY escitalopram oxalate 10 mg tab(s) (LEXAPRO) 10 mg ORAL DAILY aspirin, enteric coated 81 mg tab(s) 81 mg ORAL DAILY sodium chloride 0.9 % (flush) 2-10 mL (BD POSIFLUSH) 2-10 mL INTRAVENOUS DIRECTED PRN And perflutren lipid microspheres 1.1 mg/mL 1.3 mL injection (DEFINITY) 1.3 mL INTRAVENOUS DIRECTED PRN INTERVAL HISTORY OF PRESENT ILLNESS INTERVAL HPI: Feeling better, no new issues overnight PHYSICAL EXAM Patient Vitals for the past 24 hrs: BP Temp Temp src Pulse Resp SpO2 Weight 10/28/23 1928 137/68 36.6 ?C (97.9 ?F) Oral (!) 59 17 95 % -- 10/28/23 1511 124/63 36.6 ?C (97.9 ?F) Oral 62 18 98 % -- 10/28/23 1145 137/69 36.5 ?C (97.7 ?F) Oral (!) 59 18 97 % -- 10/28/23 1027 -- -- -- -- -- -- 84.4 kg (186 lb 1.1 oz) 10/28/23 0721 148/68 36.5 ?C (97.7 ?F) Oral (!) 57 16 99 % -- 10/28/23 0535 -- -- -- -- -- -- 86.2 kg (190 lb) 10/28/23 0510 -- -- -- -- -- -- 86.2 kg (190 lb 1.6 oz) 10/28/23 0457 116/83 36.4 ?C (97.5 ?F) Oral (!) 56 18 97 % -- 10/28/23 0005 138/79 36.6 ?C (97.9 ?F) Oral (!) 56 18 98 % -- Body mass index is 32.96 kg/m?. DATA: Diagnostic tests reviewed for today's visit: Most recent labs and imaging results. ASSESSMENT AND PLAN Assessment/Plan SOB in the setting of chronic HFpEF, AF and severe MR. - CXR does not show any pulmonary congestion, euvolemic - Echocardiogram --> Pending - Continue Amiodarone and Eliquis - Cardiology is on board LAY (acute kidney injury). Current Cr is trending down with holding Lasix Due to diuresis Renal US: No hydronephrosis or renal stones UA no proteinuria Medication and Non-Pharmacologic VTE Prophylaxis/Anticoagulants Anticoagulant AND Antiplatelet Medications (From admission, onward) Start Dose Route Frequency Last Action Ordered Stop 10/27/23 0900 aspirin, enteric coated 81 mg tab(s) 81 mg ORAL DAILY Given, 10/27 0910/27/23 0106 -- 10/27/23 0100 apixaban 5 mg tab(s) (ELIQUIS) 5 mg ORAL EVERY 12 HOURS Given, 10/27 222110/27/23 0037 -- VTE Prophylaxis: VTE prophylaxis appropriate SIGNATURE: Ata Toscano MD PATIENT NAME: Cece Hubbard DATE: October 28, 2023 TIME: 10:51 PM PAGER/CONTACT #:[facility] [id number] NoteHNO ID: [id number] Author: BECCA SILVERIO APRN.[facility] Service: Cardiovascular Disease Author Type: Nurse Practitioner Type: Plan of Care Filed: 10/28/2023 14:39 Note Text: No echo details available from [facility]. Images from her VIOLA will be downloaded to [facility]. Discussed with Dr. Covarrubias- will trial lasix 20mg IV x 1 dose today. Repeat labs in the morning. Still waiting on echo to be completed during this hospitalization. Becca Silverio DNP Cardiovascular Medicine [facility]03-19-2024 NoteHNO ID: [id number] Author: BECCA SILVERIO APRN.[facility] VASQUEZ Service: Cardiovascular Disease Author Type: Nurse Practitioner Type: Progress Notes Filed: 10/28/2023 12:06 Note Text: PROGRESS NOTE CARDIOLOGY SERVICE SERVICE DATE: 10/28/2023 SERVICE TIME: 11:14 AM Subjective INTERIM HISTORY: No concerns this morning on assessment per pt. Pt ambulating in room without SOB. No edema, adventitious breath sounds, JVD, CP, palpitations, diaphoresis, lightheadedness, or fatigue reported or appreciated on exam. Pt reports good urine response with PO lasix 20mg daily. No I/Os charted/no daily weight charted- orders placed. Awaiting echo - aviation electronics technician called by RN. Will attempt to obtain echo imaging from [place]- read available in Care Everywhere. Objective PHYSICAL EXAM: Body mass index is 32.96 kg/m?. O2 Therapy: Room Air Lying BP Min: 106/50 Max: 134/71 Standing Pulse Av.5 Min: 58 Max: 61 Standing BP Min: 140/57 Max: 152/61 Patient Vitals for the past 24 hrs: BP Temp Temp src Pulse Resp SpO2 Weight 10/28/23 1027 -- -- -- -- -- -- 84.4 kg (186 lb 1.1 oz) 10/28/23 0721 148/68 36.5 ?C (97.7 ?F) Oral (!) 57 16 99 % -- 10/28/23 0535 -- -- -- -- -- -- 86.2 kg (190 lb) 10/28/23 0510 -- -- -- -- -- -- 86.2 kg (190 lb 1.6 oz) 10/28/23 0457 116/83 36.4 ?C (97.5 ?F) Oral (!) 56 18 97 % -- 10/28/23 0005 138/79 36.6 ?C (97.9 ?F) Oral (!) 56 18 98 % -- 10/27/230 -- -- -- -- -- -- 83 kg (183 lb) 10/27/23 1946 131/87 36.5 ?C (97.7 ?F) Oral (!) 57 18 97 % -- 10/27/23 1804 132/83 36.6 ?C (97.9 ?F) Oral (!) 56 18 99 % -- 10/27/23 1128 101/50 36.6 ?C (97.9 ?F) Oral (!) 56 14 99 % -- Pleasant, comfortable, not in acute distress. Awake, alert, oriented times 3. Moves all extremities. SKIN: No rash or lumps. HEENT: Normocephalic, face symmetrical. NECK: Supple, no JVD, no carotid bruit, no thyromegaly. LUNGS: Clear to auscultation bilaterally. CARDIAC: PMI present, RRR, S1 and S2, no S3 or S4, systolic murmur noted LLSB ABDOMEN: Soft, nontender, bowel sounds present. EXTREMITIES: No edema. PULSES: Peripheral pulses present. PULSES: 2+ radial, 2+ posterial tibial, 2+ dorsalis pedis MEDICATIONS: Current Facility-Administered Medications Medication Dose Route Frequency NaCl 0.9% iv flush bag 20 mL INTRAVENOUS PRN melatonin 6 mg tab(s) 6 mg ORAL AT BEDTIME PRN acetaminophen 500-1,000 mg tab(s) (TYLENOL) 500-1,000 mg ORAL q 6 H PRN ondansetron (PF) 4 mg injection (ZOFRAN) 4 mg INTRAVENOUS q 6 H PRN senna-docusate 8.6-50 mg 1-2 tablet (SENNA-S) 1-2 tablet ORAL BID PRN atorvastatin 40 mg tab(s) (LIPITOR) 40 mg ORAL DAILY hydrALAZINE 25 mg tab(s) (APRESOLINE) 25 mg ORAL q 12 H furosemide 20 mg tab(s) (LASIX) 20 mg ORAL DAILY pantoprazole DR 40 mg tab(s) (PROTONIX) 40 mg ORAL DAILY (6 AM) amiodarone 200 mg tab(s) (PACERONE) 200 mg ORAL q 12 H apixaban 5 mg tab(s) (ELIQUIS) 5 mg ORAL q 12 H liothyronine 5 mcg tab(s) (CYTOMEL) 5 mcg ORAL BEFORE BREAKFAST DAILY isosorbide mononitrate ER 30 mg tab(s) (IMDUR) 30 mg ORAL DAILY escitalopram oxalate 10 mg tab(s) (LEXAPRO) 10 mg ORAL DAILY aspirin, enteric coated 81 mg tab(s) 81 mg ORAL DAILY sodium chloride 0.9 % (flush) 2-10 mL (BD POSIFLUSH) 2-10 mL INTRAVENOUS DIRECTED PRN And perflutren lipid microspheres 1.1 mg/mL 1.3 mL injection (DEFINITY) 1.3 mL INTRAVENOUS DIRECTED PRN DATA: Diagnostic tests reviewed for today's visit: Most recent labs and imaging results. Past 72 Hour Labs: Recent Labs 10/28/23 0549 WBC 6.06 RBC 3.79* HB 11.9 HCT 36.1 MCV 95.3 MCH 31.4 MCHC 33.0 RDWCV 13.1 PLT 174 MPV 11.0 NEUTP 55.4 LYMPHP 28.1 MONOP 11.9 EODINP 3.5 BASOP 0.8 ABSNEUT 3.36 ABSMONO 0.72 ABSEOSIN 0.21 ABSBASO 0.05 GLUC 97 BUN 29* CREAT 1.54* NA 139 K 4.3 CHLOR 103 CO2 27 TPROT 6.1* ALB 4.1 CA 9.3 ALKPHOS 86 TBILI 0.6 AST 11* ALT 11 MG 2.0 Last Lab Drawn: TSH 4.790 10/26/2023 CMP/CBC 10/27: Tele Strip 10/27 ASSESSMENT: Cece Hubbard is a 78 y/o female with a pmh of mod-severe MR, mild-mod AR/TR, CAD w/ BRITTNEY to LAD and RCA in 2019, HTN, hypothyroidism, HFpEF, HLD, GERD, depression, anxiety, and recent AF diagnosis about 1 month ago at [place] and started on amiodarone and Eliquis. Admitted for management of persistent SOB since AF diagnosis in setting of known severe MR and HF exacerbation. Labs s/f LAY, flat HSTnT, and elevated BNP. Pt admitted to [facility]. On assessment pt denies SOB, CP, palpitations, new or worsening edema, fatigue, or additional concerns. #Shortness of Breath - worsening since AF diagnosis x1 month prior w/ x ER admits - known MR - lasix 20mg daily - lungs clear on auscultation - pt on 2l NC - no edema/JVD/adventitious lung sounds on assessment #Mitral Regurgitation, worsening - Dx 2017 w/ worsening symptoms 2019 - following w/ Dr. Blunt at [place] - limited echo 10/13/23 - severe MR - working up w/ [place] for OHS but requests transf (more content not included)...[facility] [id number] NoteHNO ID: [id number] Author: MAURI KHAN PA Service: General Internal Medicine Author Type: Physician Material Specialist Type: Plan of Care Filed: 10/27/2023 01:03 Note Text: DEPARTMENT OF INTERNAL MEDICINE Brief Plan of Care Note Brief HPI: This is a pleasant 78 yo F with a PMH of mod-severe MR, mild-mod AI, afib, CAD s/p BRITTNEY, and HTN who presented to the ED for shortness of breath. This is been going on for the past few weeks and particularly worse over past 2-3 days to the point where she is having difficulty performing ADLs because of the dyspnea. Shortness of breath is made worse with exertion and lying flat, better with rest and sitting up. Denies any associated fever, chills, chest pain, or n/v. Denies any acute changes in urinary frequency or dysuria. No known sick contacts. Notable chart review: Cardiology consult note from 10/13/23 Suspect she has HFpEF morphology compounded by moderate-severe MR now contributing to AF and being exacerbated by uncontrolled hypertension. She doesn't seem to tolerate beta-blockade, but the amiodarone does appear to be keeping her in sinus. Recommend outpatient evaluation for Mvr as she does not appear to be decompensated significantly at this time. Will optimize BP and restart low-dose lasix. Will try to obtain outpatient echo and move up her appointment. Notable ED Course: HDS Labs: notable for mild LAY BUN 30/Cr 1.6 (previous Cr for comparison 1.36 on 10/12), ProBNP 456, HST 18>19 EKG: Sinus rhythm with a rate of 64, no significant changes notes compared to prior Imaging: CXR w/o acute findings Notable Physical Exam Findings: Gen: alert, NAD Skin: warm, dry and intact without any rashes or lesions visualized. No LE edema appreciated HEENT: Head NCAT. Hearing grossly intact. CV: RRR, faint systolic murmur best heard at LLSB Lungs: CTAB, no wheezing or rhonchi appreciated GI: abdomen soft, nt/nd, +bowel sounds MSK: Spontaneously moves all extremities. No calf tenderness bilat Neuro: Alert and oriented x 3. FOCUSED ASSESSMENT/PLAN: Shortness of breath Mitral regurgitation CAD Afib -pt with hx CAD, afib, known mod-severe MR ([facility]H [place] 08/06/23) presented with worsening dyspnea to the point where it is affecting ADLs. No chest pain. Euvolemic appearing. NSR on EKG w/o acute ST-T changes or significant AV blocks noted, HST mildly elevated but flat. Considering the following, highest suspicion at this time for sxs being attributed to worsening MR PLAN -cardiology consulted, appreciate assistance -continue [employer] medications as ordered -Echo -TSH -tele order LAY -of unclear etiology. Euvolemic appearing on exam PLAN -Holding [employer] losartan, defer to primary day team to resume when appropriate -UA and orthostatic VS ordered for further workup -monitor I/Os I spent a total of 60 minutes on the date of the service which included preparing to see the patient, [id number] patient care, completing clinical documentation, obtaining and/or reviewing separately obtained history, performing a medically appropriate examination, counseling and educating the patient/family/caregiver, ordering medications, tests, or procedures, and communicating results to the patient/family/caregiver. This note was partially generated using [employer] voice recognition system. There may be some incorrect words, spelling, punctuation that were not noted while reviewing the note before signing. Mauri Khan PA-C 12:19 [facility]03-08-2024 Miscellaneous Notes* Telephone Encounter - Ziyad Gibbons RN - 10/17/2023 7:04 PM EST Spoke to pt's daughter, Barry Church she is the spokes person for p,. She states that pt needs TMVR. Her phone number is [phone] and email [email or web address]. I have sent her the usual TMVR letter. Pt has an upcoming appt with Dr Liz on 01/22/23. I toldher that more than likely this appt will be cancelled. documented in [facility] encounter[facility] NoteHNO ID: [id number] Author: MARK PACHECO MD Service: Cardiovascular Medicine Author Type: Fellow Type: Plan of Care Filed: 10/16/2023 11:53 Note Text: Attestation signed by Mark Pacheco MD at 10/16/2023 11:53 AM [facility] STAFF PHYSICIAN NOTE OF PERSONAL INVOLVEMENT [...] therapies and outpatient cardiology follow-up. SIGNATURE: Mark Pacheco MD, MSc, [facility] 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 Helper Date: 10/16/2023 Time: 11:52 AM [facility] CARDI[facility]ASCULAR MEDICINE CONSULT NOTE (Template ID [id number]) Cece Hubbard [id number] PRIMARY SERVICE: Emergency Department CONSULTING SERVICE: Cardiovascular Medicine: General Consults DATE OF ADMISSION: 10/13/2023 DATE OF CONSULT: 10/14/2023 REASON FOR CONSULT Shortness of breath HISTORY OF PRESENT ILLNESS Cece Hubbard is a 78 year old female [...] Swelling Codeine Vomiting Di (more content not included)...[facility]01-24-2024 NoteUT Cardiology - [facility] Subjective Cece Hubbard is a 78 y.o. year old female patient being seen for follow up [place]. C/o extreme tiredness . Denies chest pain, SOB, and palpitations. Patient Active Problem List Diagnosis Mitral valve regurgitation Coronary artery disease involving stillaguamish coronary artery of stillaguamish heart without angina pectoris Primary hypertension Nonrheumatic [...] March 2020 she was admitted to the [facility] with worsening shortness of breath. The [...] June 2023 she was admitted to the [facility] with worsening shortness of breath [...] Serina Inhibitors Amlodipine Swell (more content not included)...[facility]12-27-2023 NotePatient: Cece Hubbard Procedure Information Date/Time: 08/06/23 1030 Procedure: TRANSESOPHAGEAL ECHO ([facility]) Location: [facility] Vascular Lab Clinical information reviewed: Allergies Meds Physical Exam Airway Mallampati: II TM distance: >3 FB Neck ROM: full Cardiovascular Dental Pulmonary Abdominal Anesthesia Plan ASA 2 other (Moderate sedation) Additional Equipment RequestsPark[facility]11-28-2023 Note Patient here for follow up [facility] for SOB and chest pain. She was started on isosorbide. She is scheduled for outpatient stress test next week. She denies chest pain. SOB is improving. C/o LE edema which resolves by morning. C/o fatigue. Review of Systems Cardiovascular: Positive for leg swelling. All other systems reviewed and are negative.[facility] 07-08-2023 NoteCardiovascular Medicine [facility] SUBJECTIVE Chief Complaint Patient presents with Fatigue Congestive Heart Failure Edema Shortness of Breath Cece Hubbard is a 78 y.o. female here for hospital follow-up. HPI She started to have feeling of chest congestion around 06/21/2023 (this was similar to how she felt prior to her stent placement) and she presented to [facility]. She states she was having SOB laying [...] down. She denies CP, palpitations, dizziness/LH, syncope Last HPI per Dr. Blunt: She is a 78-year-old woman who has known that she had mitral regurgitation for many years. She was followed up by outside cardiology. In 2019 she became very symptomatic with shortness of breath NYHA class III. In February and early March 2020 she was admitted to the [facility] with worsening shortness of breath. The [...] Mitral valve regurgitation Coronary artery disease involving stillaguamish coronary artery of stillaguamish heart without angina pectoris Primary hypertension Nonrheumatic [...] disease Heart valve disease Hypertension Pulmonary hypertension ([facility] Family History Problem Relation Name Age of [...] , Rfl: liothyronine ( (more content not included)...[facility] 03-28-2023 NoteUT Cardiology - [facility] Subjective Cece Hubbard is a 78 y.o. year old female patient being seen for Follow-up (6 MONTH FOLLOW UP ) Patient Active Problem List Diagnosis Mitral valve regurgitation Coronary artery disease involving stillaguamish coronary artery of stillaguamish heart without angina pectoris Primary hypertension Nonrheumatic [...] March 2020 she was admitted to the [facility] with worsening shortness of breath. The [...] mg tablet, TAKE 1 (more content not included)...[facility]03-02-2023 Instructions* Patient Instructions* Franchesca Almeida V, MD - 10/10/2022 12:27 PM [...] health of the eye if left untreated, i t can prove to be a nuisance. Not all patients will develop a clouded capsule, but if this occurs, the problem can be corrected with a simple, non-invasive procedure known as a YAG laser capsulotomy. If you elect to have this procedure, dilating drops are given to open the pupil. You will be asked to sit in a machine similar tothe one that is used to check you eye pressure in an eye exam. The doctor then shines a red, aiminglaser beam that can be seen by our [...] so we recommend you come with a lift driver. You will then be scheduled for a follow up in approximately one week. If you notice any of the following symptoms of retinal detachment, please call our office at : - Flashes of light - Increased number of floaters or large floaters - Curtains, veils, or spider web pattern over vision documented in this encounterRegency [facility]03-02-2023 History of Present illness Narrative* Franchesca Almeida V, MD - 10/10/2022 12:24 PM EST The documentation for this note was completed by CHRISTAL Ulloa acting as a scribe for Franchesca ALMEIDA MD. 10/10/2022 12:24 PM. ASSESSMENT / [...] pressure, retinal tears/detachment, dislocation of the intraocular lens,and/or need for further procedures. Patient expresses understanding and elects to proceed with YAG capsulotomy of Both eyes performed by Dr. Almeida. Informed consent form signed by physician and patient. Literature regarding signs and symptoms of retinal detachment offered. -The patient was offered a surgery/procedure at [facility] facility. The surgeon/proceduralist and patient have discussed in detail the risk of exposure to and/or potential harm posed by the COVID-19 virus with having a surgery/procedure at this time versus the risk of delaying the surgery/p rocedure. It is not possible to know either the risk of delaying the surgery or procedure or chanceof getting an infection with perfect accuracy, but a joint decision was made between the patient and the surgeon/proceduralist to proceed at this time with the scheduled surgery/procedure as indicated on the consent form. -F/U [address] ROSE or Dr BHATTI (VATa, Manifest refraction) The documentation recorded by the scribe accurately reflects the service I personally performed andthe decisions made by me. I have confirmed and edited as necessary the relevant ophthalmic history,ROS, and the exam findings as obtained by others. I have seen and examined Cece Hubbard. I alsohave reviewed and agree with the assessment and plan as stated above and agree with all of its relevant components. Franchesca ALMEIDA MD October 10, 2022 12:24 PM * Armando uMrphy, OD - 10/10/2022 11:44 AM EST ASSESSMENT/PLAN: 1. PCO (posterior capsular opacification), bilateral - ICD9: 366.50, ICD10: H26.493 (primary diagnosis) 2. Pseudophakia of both eyes - ICD9: V43.1, ICD10: Z96.1 Four months s/p PEcIOLs Monovisioon OD dist and OS near Pt still wearing Pre-op specs + Glare and halo signs and/or symptoms YAG evaluation with Dr Franchesca Almeida today Recommend current/updated spec Rx for [...] agree with all of its relevant components. Armando Murphy, OD October 10, 2022 11:45 AM documented in this encounterRegency [facility]09-22-2022 History of Present illness Narrative* Franchesca Almeida V, MD - 05/02/2022 10:44 AM EDT The documentation for this note was completed by CHRISTAL Ulola acting as a scribe for Franchesca ALMEIDA MD. 05/02/2022 10:44 AM. Post-op day [...] accurately reflects the service I personally performed andthe decisions made by me. I have confirmed and edited as necessary the relevant ophthalmic history,ROS, and the exam findings as obtained by others. I have seen and examined Cece Hubbard. I alsohave reviewed and agree with the assessment and plan as stated above and agree with all of its relevant components. Franchesca ALMEIDA MD May 02, 2022 10:44 AM documented in this encounterRegency Hospital [facility]09-21-2022 History of Present illness Narrative* Naila Harrison, OD - 05/01/2022 6:05 PM EDT ASSESSMENT/PLAN: 1. Superficial punctate keratitis of left [...] examined this patient. I have discussed the caseand the management of this patient's care with the Resident/Fellow, if applicable. I also have reviewed and agree with the assessment and plan as stated above and agree with all of its relevant components. Naila Harrison, OD May 01, 2022 6:05 PM documented in this encounterRegency Hospital [facility]09-14-2022 History of Present illness Narrative* CHRISTAL Calles - 04/24/2022 12:46 PM EDT Confirmed Aim: -1.50 OS, [place] OD CHRISTAL Calles April 24, 2022 12:46 PM documented in this encounterRegency [facility]07-28-2022 History of Present illness Narrative* Franchesca Almeida V, MD - 03/07/2022 1:24 PM EDT The documentation for this note was completed by CHRISTAL Chen acting as a scribe for Franchesca ALMEIDA MD. 03/07/2022 1:25 PM. ASSESSMENT / [...] - Comanage with Dr Wilson; [facility] POD #1 Cataract Presurgical Documentation Cataract: Both eyes (OU) Current Visual Acuity Right Eye Distance CC 20/20 Left Eye Distance CC 20/25 Best Corrected Vision Right Eye 20/20 Best Corrected Vision Left Eye 20/25-3 Glare Testing: Right Eye High 20/70 Left Eye High 20/70 Visual Function: Cece Hubbard states that the decline in vision from the cataract impedes her abilities as listed in the HPI, as well as other activities of daily living. Cece Hubbard has confirmed that she is no [...] surgery with lens implantation were discussed with Cece Hubbard in detail. she appeared to understand and asked that I proceed with plans for surgery. Patient acknowledges possible need for glasses after procedure. Informed consent form signed by physician and patient. Literature regarding cataract and cataract extraction by phacoemulsification offered. Return for preadmission testing, biometry & intraocular lens calculations prior to surgery. The patient was offered a surgery/procedure at a [facility] facility. The surgeon/proceduralist and patient have discussed in detail the risk of exposure to and/or potential harm posed by the COVID-19 virus with having a surgery/procedure at this time versus the risk of delaying the surgery/pr ocedure. It is not possible to know either the risk of delaying the surgery or procedure or chance of getting an infection with perfect accuracy, but a joint decision was made between the patient andthe surgeon/proceduralist to proceed at this time with the scheduled surgery/procedure as indicatedon the consent form. The documentation recorded by the scribe accurately reflects the service I personally performed andthe decisions made by me. I have confirmed and edited as necessary the relevant ophthalmic history,ROS, and the exam findings as obtained by others. I have seen and examined Cece Hubbard. I alsohave reviewed and agree with the assessment and plan as stated above and agree with all of its relevant components. Franchesca ALMEIDA MD March 07, 2022 1:25 PM * Marian Arroyo, JOAQUIM - 03/07/2022 12:58 PM EDT (H25.813) Combined forms of age-related cataract of both eyes (primary encounter diagnosis) (H43.811) Posterior vitreous detachment of right eye Patient referred by Cat Wilson O.D. Cataracts Both eyes, evaluation today with Franchesca Almeida M.D. Posterior vitreous detachment Right eye, retina flat and intact Both eyes rpe changes Left eye, taking AREDS2 Marian Arroyo, JOAQUIM March 07, 2022 12:59 PM documented in this encounterRegency Hospital [facility]06-08-2022 Miscellaneous Notes* Telephone Encounter - Hernan John - 01/16/2022 9:41 AM EDT Patient has been rescheduled with Dr. Almeida for March 07 in [place] * Telephone Encounter - Hernan John - 01/16/2022 9:34 AM EDT Patient called Appointment Center and was scheduled with Dr. Taylor. We are waiting to confirm from Dr. Wilson office if it is ok for patient to stay scheduled with or to call and reschedulewith Dr. Almeida * Telephone Encounter - Hernan John - 01/11/2022 11:35 AM EDT LVM for patient to schedule at Cataract Evaluation with Dr. Almeida in [place] per faxed referral fromDr. Wilson. First attempt 01/11/22. Referral scanned into chart. documented in this encounterRegency Hospital [facility] EastEvaluation note* Diagnosis Combined forms of age-related cataract of both eyes- Primary Other and combined forms of senile cataract Posterior vitreous detachment of right eye Vitreous degeneration documented in this encounter [facility]* Diagnosis Combined forms of age-related cataract of both eyes- Primary Other and combined forms of senile cataract documented [facility]* Diagnosis Combined forms of age-related cataract of both eyes Other and combined forms of senile cataract Combined forms of age-related cataract of both eyes Other and combined forms of senile cataract Combined forms of age-related cataract of both eyes Other and combined forms of senile cataract documented [facility] this [facility]* Diagnosis Superficial punctate keratitis of left eye- Primary Pseudophakia Lens replaced by other means Combined forms of age-related cataract of both eyes Other and combined forms of senile cataract documented in this encounter [facility]* Diagnosis S/P cataract extraction and insertion of intraocular lens, left- Primary Combined forms of age-related cataract of both eyes Other and combined forms of senile cataract documented in this encounter [facility] noteNo assessment information availableAdena [facility] Work Phone: Evaluation note* Diagnosis PCO (posterior capsular opacification), bilateral- Primary After-cataract, unspecified Pseudophakia of both eyes Lens replaced by other means Vitreous degeneration, 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 Other retinal disorders documented [facility] this [facility]* Diagnosis Hypertension, unspecified type- Primary Coronary artery disease involving stillaguamish coronary artery of stillaguamish heart, unspecified whether angina present Hyperlipidemia, unspecified hyperlipidemia type documented in this encounter [facility]* Diagnosis Mitral valve disorder- Primary Mitral valve disorders Other specified symptoms and signs involving the circulatory and respiratory systems Shortness of breath Pre-operative cardiovascular examination Aortic valve disorder Aortic valve disorders Paroxysmal atrial fibrillation (HCC) Atrial fibrillation Atherosclerosis of stillaguamish coronary artery of stillaguamish heart without angina pectoris Hypertension, unspecified type Hyperlipidemia, unspecified hyperlipidemia type Hypothyroidism, unspecified type Chronic kidney disease, unspecified CKD stage Pre-operative cardiovascular examination Aortic valve disorder Aortic valve disorders Paroxysmal atrial fibrillation (HCC) Atrial fibrillation Atherosclerosis of stillaguamish coronary artery of stillaguamish heart without angina pectoris Mitral valve disorder Mitral valve disorders [facility] Pre-operative cardiovascular examination- Primary Shortness of breath Pre-operative cardiovascular examination Aortic valve disorder Aortic valve disorders Paroxysmal atrial fibrillation (HCC) Atrial fibrillation Atherosclerosis of [place] coronary artery of [place] heart without angina pectoris Mitral valve disorder Mitral valve disorders Pre-operative cardiovascular examination Aortic valve disorder Aortic valve disorders Paroxysmal atrial fibrillation (HCC) Atrial fibrillation Atherosclerosis of [place] coronary artery of [place] heart without angina pectoris Mitral valve disorder Mitral valve disorders [facility] Pre-operative cardiovascular examination- Primary Shortness of breath Pre-operative cardiovascular examination Aortic valve disorder Aortic valve disorders Paroxysmal atrial fibrillation (HCC) Atrial fibrillation Atherosclerosis of [place] coronary artery of [place] heart without angina pectoris Mitral valve disorder Mitral valve disorders Pre-operative cardiovascular examination Aortic valve disorder Aortic valve disorders Paroxysmal atrial fibrillation (HCC) Atrial fibrillation Atherosclerosis of [place] coronary artery of [place] heart without angina pectoris Mitral valve disorder Mitral valve disorders [facility] Lung nodules- Primary Other nonspecific abnormal finding of lung field Shortness of breath Pre-operative cardiovascular examination Aortic valve disorder Aortic valve disorders Paroxysmal atrial fibrillation (HCC) Atrial fibrillation Atherosclerosis of [place] coronary artery of [place] heart without angina pectoris Mitral valve disorder Mitral valve disorders Pre-operative cardiovascular examination Aortic valve disorder Aortic valve disorders Paroxysmal atrial fibrillation (HCC) Atrial fibrillation Atherosclerosis of [place] coronary artery of [place] heart without angina pectoris Mitral valve disorder Mitral valve disorders [facility] Diagnosis Coronary artery disease with angina pectoris, unspecified vessel or lesion type, unspecified whether [place] or transplanted heart (HCC)- Primary [facility] Diagnosis Primary hypertension- Primary Unspecified essential hypertension [facility] Diagnosis History of PTCA- Primary Postsurgical percutaneous transluminal coronary angioplasty status Paroxysmal atrial fibrillation (Multi) Atrial fibrillation Coronary artery disease, unspecified vessel or lesion type, unspecified whether angina present, unspecified whether [place] or transplanted heart Hyperlipidemia, unspecified hyperlipidemia type Diastolic dysfunction Unspecified heart disease High risk medication use Mitral valve insufficiency, unspecified etiology Aortic valve insufficiency, etiology of cardiac valve disease unspecified Stage 3 chronic kidney disease, unspecified whether stage 3a or 3b CKD (Multi) BMI 30.0-30.9,adult Former smoker Personal history of tobacco use, presenting hazards to health documented in this encounter [facility] Work Phone: Evaluation note* Diagnosis Pre-op evaluation- Primary Preoperative examination, unspecified Cataract of both eyes, unspecified cataract type Depression, unspecified depression type Anxiety Anxiety state, unspecified Gastroesophageal reflux disease, unspecified whether esophagitis present Hypertension, unspecified type Hyperlipidemia, unspecified hyperlipidemia type Coronary artery disease involving [place] coronary artery of [place] heart, unspecified whether angina present SOB (shortness of breath) Shortness of breath Mitral valve insufficiency, unspecified etiology Congestive heart failure, unspecified HF chronicity, unspecified heart failure type (HCC) LAY (acute kidney injury) (HCC) Acute kidney failure, unspecified LAY (acute kidney injury) (HCC) Acute kidney failure, unspecified Obesity, Class I, BMI 30-34.9 Obesity, unspecified HOLLY (dyspnea on exertion)- Primary Other dyspnea and respiratory abnormality SOB (shortness of breath) Shortness of breath Coronary artery disease involving [place] heart, unspecified vessel or lesion type, unspecified whether angina present Malaise and fatigue Other malaise and fatigue CAD, multiple vessel Coronary atherosclerosis of unspecified type of vessel, [place] or graft HTN (hypertension) Unspecified essential hypertension Hyperlipidemia Other and unspecified hyperlipidemia CAD (coronary artery disease) Coronary atherosclerosis of unspecified type of vessel, [place] or graft Severe mitral regurgitation Mitral valve disorders Atrial fibrillation (HCC) Atrial fibrillation Anxiety Anxiety state, unspecified Depression Depressive disorder, not elsewhere classified Stage 3 chronic kidney disease (HCC) Chronic heart failure with preserved ejection fraction (HCC) Acid reflux Esophageal reflux Hypothyroidism Unspecified hypothyroidism Coronary artery disease involving [place] coronary artery of [place] heart with other form of angina pectoris (HCC)- Primary Paroxysmal atrial fibrillation (HCC) Atrial fibrillation Chronic anticoagulation Long-term (current) use of anticoagulants [facility] Diagnosis Encounter for screening mammogram for malignant neoplasm of breast- Primary Vaginal itching Pruritus of genital organs Encounter for gynecological examination without abnormal finding Screening for malignant neoplasm of cervix Screening for malignant neoplasm of the cervix Postmenopausal Asymptomatic postmenopausal status (age-related) (natural) Osteoporosis, post-menopausal (CMS/HCC) Senile osteoporosis Acute vaginitis Unspecified vaginitis and vulvovaginitis documented in this encounter [facility]* Diagnosis Flexural atopic dermatitis- Primary Other atopic dermatitis and related conditions documented in this encounter [facility]* Diagnosis Obesity, Class I, BMI 30-34.9- Primary Coronary artery disease, unspecified vessel or lesion type, unspecified whether angina present, unspecified whether [place] or transplanted heart Diastolic dysfunction Unspecified heart disease Mitral valve insufficiency, unspecified etiology Aortic valve insufficiency, etiology of cardiac valve disease unspecified Paroxysmal atrial fibrillation (Multi) Atrial fibrillation History of PTCA Postsurgical percutaneous transluminal coronary angioplasty status Mixed hyperlipidemia Stage 3 chronic kidney disease, unspecified whether stage 3a or 3b CKD (Multi) Former smoker Personal history of tobacco use, presenting hazards to health documented in this encounter [facility] Work Phone: Evaluation note* Diagnosis Flexural atopic dermatitis- Primary Other atopic dermatitis and related conditions Chronic rhinitis documented in this encounter [facility]* Diagnosis Onset Date Resolution Status Admit Date Acute UTI acute August 28, 2024 6:27pm Heart failure acute August 6:27pm Pleural effusion acute August 28, 2024 6:27pm [facility] Work Phone: Evaluation note* Diagnosis Coronary artery disease, unspecified vessel or lesion type, unspecified whether angina present, unspecified whether [place] or transplanted heart Hyperlipidemia, unspecified hyperlipidemia type documented in this encounter [facility] Work Phone: Evaluation note* Diagnosis Coronary artery disease, unspecified vessel or lesion type, unspecified whether angina present, unspecified whether [place] or transplanted heart- Primary History of PTCA Postsurgical percutaneous transluminal coronary angioplasty status Paroxysmal atrial fibrillation (Multi) Atrial fibrillation Mixed hyperlipidemia Stage 3a chronic kidney disease (Multi) Diastolic dysfunction Unspecified heart disease High risk medication use Pleural effusion Unspecified pleural effusion BMI 30.0-30.9,adult Former smoker Personal history of tobacco use, presenting hazards to health documented in this encounter [facility] Work Phone: Hospital course Narrative No data available for this section [facility] Additional Instructions Take Keflex as prescribed for periorbital cellulitis. Take Claritin as prescribed for symptoms of allergies. You can apply bacitracin ointment on the eyelid. [facility] Progress note No data available for this section [facility] for referral (narrative)* Outpatient Procedure (Routine) - Authorized Specialty Diagnoses / Procedures Referred By Contac t Referred To Contact [facility] Diagnoses Hypertension, unspecified type Coronary artery disease involving [place] coronary artery of [place] heart, unspecified whether angina present Hyperlipidemia, unspecified hyperlipidemia type Procedures ECG COMPLETE ECG ROUTINE ECG W/LEAST 12 LDS W/I&R Shravan Buchanan MD [address] [place] [address] [facility] [address] Referral ID Status Reason Start Date Expiration Date Visits Requested Visits Authorized [id number] Authorized Auto-Generat ed Referral 09/16/2023 09/15/2024 1 1 [facility] for referral (narrative)* Outpatient Procedure (Routine) - Pending Review Specialty Diagnoses / Procedures Referred By Contac t Referred To Contact [facility] Diagnoses Shortness of breath Pre-operative cardiovascular examination Aortic valve disorder Paroxysmal atrial fibrillation (HCC) Atherosclerosis of [place] coronary artery of [place] heart without angina pectoris Mitral valve disorder Procedures US LEG VEIN MAP TAMMI VAS LAB DUP-SCAN XTR VEINS COMPLETE BILATERAL STUDY Gaetano Shaw MD [address] [facility] [id number] [address] [facility] [address] Referral ID Status Reason Start Date Expiration Date Visits Requested Visits Authorized [id number] Pending Review Auto-Generat ed Referral 11/11/2023 11/10/2024 1 1 * Outpatient Procedure (Routine) - Pending Review Specialty Diagnoses / Procedures Referred By Contac t Referred To [facility] Diagnoses Pre-operative cardiovascular examination Aortic valve disorder Paroxysmal atrial fibrillation (HCC) Atherosclerosis of [place] coronary artery of [place] heart without angina pectoris Mitral valve disorder Procedures LUNG DIFFUSION CAPACITY (DLCO) DIFFUSING CAPACITY Gaetano Shaw MD [phone] [place] [address] Referral ID Status Reason Start Date Expiration Date Visits Requested Visits Authorized [id number] Pending Review Auto-Generat ed Referral 11/11/2023 12/10/2024 1 1 * Outpatient Procedure (Routine) - Pending Review Specialty Diagnoses / Procedures Referred By Contac t Referred To [facility] Diagnoses Pre-operative cardiovascular examination Aortic valve disorder Paroxysmal atrial fibrillation (HCC) Atherosclerosis of [place] coronary artery of [place] heart without angina pectoris Mitral valve disorder Procedures SPIROMETRY BASELINE ONLY SPMTRY W/VC EXPIRATORY JENNA W/WO MXML VOL VNTJ Gaetano Shaw MD [address] [place] [address] [place] [address] Referral ID Status Reason Start Date Expiration Date Visits Requested Visits Authorized [id number] Pending Review Auto-Generat ed Referral 11/11/2023 12/10/2024 1 1 * MRI/CT (Routine) - Pending Review Specialty Diagnoses / Procedures Referred By Contac t Referred To Contact CT IMAG[facility] Diagnoses Pre-operative cardiovascular examination Aortic valve disorder Paroxysmal atrial fibrillation (HCC) Atherosclerosis of [place] coronary artery of [place] heart without angina pectoris Mitral valve disorder Procedures CT CHEST WO IVCON DIAGNOSTIC COMPUTED TOMOGRAPHY THORAX W/O CNTRST Gaetano Shaw MD [address] [place] [address] [facility] [place] [address] Referral ID Status Reason Start Date Expiration Date Visits Requested Visits Authorized [id number] Pending Review Auto-Generat ed Referral 11/11/2023 12/10/2024 1 1 * Outpatient Procedure (Routine) - Pending Review Specialty Diagnoses / Procedures Referred By Gayleac t Referred To [facility] Diagnoses Other specified symptoms and signs involving the circulatory and respiratory systems Pre-operative cardiovascular examination Aortic valve disorder Paroxysmal atrial fibrillation (HCC) Atherosclerosis of [place] coronary artery of [place] heart without angina pectoris Mitral valve disorder Procedures US CAROTID ARTERIES TAMMI VAS LAB DUPLEX SCAN EXTRACRANIAL [place] [address] [place] [address] [place] [address] Referral ID Status Reason Start Date Expiration Date Visits Requested Visits Authorized [id number] Pending Review Auto-Generat ed Referral 11/11/2023 11/10/2024 1 1 * Consult, Test, Treat (Routine) - Authorized Specialty Diagnoses / Procedures Referred By Tony townsend Referred To Contact Cardiac Surg Diagnoses Pre-operative cardiovascular examination Aortic valve disorder Paroxysmal atrial fibrillation (HCC) Atherosclerosis of [place] coronary artery of [place] heart without angina pectoris Mitral valve disorder Procedures CARDIOTHORACIC PREOP EVALUATION OFFICE/OUTPATIENT [facility] 60 MINUTES Gaetano Shaw MD [address] [phone] Referral ID Status Reason Start Date Expiration Date Visits Requested Visits Authorized [id number] Authorized PCP Requested Referral 11/11/2023 11/10/2024 1 1 * Consult, Test, Treat (Routine) - Authorized Specialty Diagnoses / Procedures Referred By Tony townsend Referred To Contact Cardiology Diagnoses Pre-operative cardiovascular examination Aortic valve disorder Paroxysmal atrial fibrillation (HCC) Atherosclerosis of [place] coronary artery of [place] heart without angina pectoris Mitral valve disorder Procedures CONSULT TO CARDIOLOGY OFFICE/OUTPATIENT [facility] 60 MINUTES Gaetano Shaw MD [address] [phone] Referral ID Status Reason Start Date Expiration Date Visits Requested Visits Authorized [id number] Authorized PCP Requested Referral 11/11/2023 11/10/2024 1 1 [facility] for referral (narrative)* Outpatient Procedure (Routine) - Authorized Specialty Diagnoses / Procedures Referred By Contac t Referred [facility] Diagnoses Coronary artery disease with angina pectoris, unspecified vessel or lesion type, unspecified whether [place] or transplanted heart (HCC) Procedures ECG COMPLETE ECG ROUTINE ECG W/LEAST 12 LDS W/I&R Song Tyler MD [address] [place] [address] [facility] [address] Referral ID Status Reason Start Date Expiration Date Visits Requested Visits Authorized [id number] Authorized Auto-Generat ed Referral 12/04/2023 12/03/2024 1 1 [facility] for referral (narrative)* Consultation (Routine) - Authorized Specialty Diagnoses / Procedures Referred By Contac t Referred To Contact Cardiology Diagnoses Paroxysmal atrial fibrillation (Multi) Procedures Follow Up In Cardiology Víctor Wills MD [address] [facility] [address], [address] [address] Víctor Wills MD [address], [place] [address] [place] [id number] Referral ID Status Reason Start Date Expiration Date V isits Requested Visits Authorized [id number] Authorized 01/12/2024 01/11/2025 1 1 * Cardiovascular (Routine) - Authorized Specialty Diagnoses / Procedures Referred By Contac t Referred To Contact Diagnoses Paroxysmal atrial fibrillation (Multi) Procedures ECG 12 Lead Víctor Wills MD [address], [address] [address] Referral ID Status Reason Start Date Expiration Date V isits Requested Visits Authorized [id number] Authorized 01/12/2024 01/11/2025 1 1 [facility] Work Phone: Reason for visit Narrative* Cardiac Stress Testing (Routine) - Authorized Specialty Diagnoses / Procedures Referred By Contac t Referred To Contact Radiology Diagnoses Coronary artery disease, unspecified vessel or lesion type, unspecified whether angina present, unspecified whether [place] or transplanted heart Hyperlipidemia, unspecified hyperlipidemia type Procedures Nuclear Stress Test CHG MYOCARDIAL SPECT MULTIPLE STUDIES Víctor Wills MD [address] [place] [address] [address], [address] [address] Phone: tel: fax: Referral ID Status Reason Start Date Expiration Date V isits Requested Visits Authorized [id number] Authorized 08/26/2024 08/26/2025 5 5 [facility] Work Phone: Reason for visit Narrative* Cardiac Stress Testing (Routine) - Authorized Specialty Diagnoses / Procedures Referred By Contac t Referred To Contact Radiology Diagnoses Coronary artery disease, unspecified vessel or lesion type, unspecified whether angina present, unspecified whether [place] or transplanted heart Hyperlipidemia, unspecified hyperlipidemia type Procedures Nuclear Stress Test CHG MYOCARDIAL SPECT MULTIPLE STUDIES Víctor Wills MD [address] [facility] [address], [address] [address] Phone: tel: fax: Referral ID Status Reason Start Date Expiration Date V isits Requested Visits Authorized [id number] Authorized 08/26/2024 08/26/2025 5 5 [facility] Work Phone: Summary Purpose Family History No Family History Records FoundNo Family History Records FoundNo Family History Records FoundNo Family History Records Found No data available for this section No Family History Records FoundNo Family History Records FoundNo Family History Records FoundNo Family History Records FoundNo Family History Records FoundNo Family History Records FoundNo Family History Records Found Advance Directives No Advanced Directives Records Found Advance Directive Response Recorded Date/ Time Advance Directives No April 2:20pm Documents on File Type Date Recorded 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 Advance Directive(s) 10/30/2023 12:47 PM Advance Directive(s) 10/27/2023 5:28 PM Date Activated Date Inactivated Comments 10/27/2023 12:37 AM Question Answer Comments Full Code Order Discussed With: Patient Documents on File Type Date Recorded 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 Advance Directive(s) 10/30/2023 12:47 PM Advance Directive(s) 10/27/2023 5:28 PM Date Activated Date Inactivated Comments 11/05/2023 1:07 AM 11/06/2023 2:57 PM Question Answer Comments Full Code Order Discussed With: Patient Date Activated Date Inactivated Comments 10/27/2023 12:37 AM 11/02/2023 5:12 PM Question Answer Comments Full Code Order Discussed With: Patient Date Activated Date Inactivated Comments 11/05/2023 1:07 AM 11/06/2023 2:57 PM Date Activated Date Inactivated Comments 10/27/2023 12:37 AM 11/02/2023 5:12 PM Question Answer Comments Full Code Order Discussed With: Patient Date Activated Date Inactivated Comments 11/24/2023 7:22 PM 11/25/2023 9:17 PM Date Activated Date Inactivated Comments 11/05/2023 1:07 AM 11/06/2023 2:57 PM Date Activated Date Inactivated Comments 10/27/2023 12:37 AM 11/02/2023 5:12 PM Question Answer Comments Full Code Order Discussed With: Patient Date Activated Date Inactivated Comments 11/24/2023 7:22 PM 11/25/2023 9:17 PM Date Activated Date Inactivated Comments 11/05/2023 1:07 AM 11/06/2023 2:57 PM Date Activated Date Inactivated Comments 10/27/2023 12:37 AM 11/02/2023 5:12 PM Question Answer Comments Full Code Order Discussed With: Patient Advance Directive Response Recorded Date/ Time Advance Directives No April 1:20pm Chief Complaint and Reason for Visit Chief Complaint Screening Chief Complaint eyes swollen Chief Complaint Admit Date Screening July 29, 2024 1:10pm nausea, sob August 28, 2024 6 :27pm Reason for Visit Admit Date Acute UTI August 28, 2024 6 :27pm Heart failure August 28, 2024 6 :27pm Pleural effusion August 28, 2024 6 :27pm Chief Complaint Admit Date Screening July 29, 2024 1:10pm nausea, sob August 28, 2024 6 :27pm nausea, sob August 29, 2024 1 :56pm Reason for Visit Admit Date Acute UTI August 28, 2024 6 :27pm Diastolic heart failure August 28 6:27pm HLD (hyperlipidemia) August 28, 2024 6:27pm HTN (hypertension), benign August 28, 2024 6:27pm Paroxysmal atrial fibrillation with RVR August 28, 2024 6:27pm Pleural effusion August 28, 2024 6 :27pm Stented coronary artery August 28 6:27pm CAD (coronary artery disease) August 282024 6:27pm Heart failure August 28, 2024 6 :27pm Hypothyroidism August 28, 2024 6 :27pm Ischemic cardiomyopathy August 28 6:27pm Acute systolic heart failure August 6:27pm Health Concerns Active Problems Noted Date Diagnosed Date Interactive Heart Surgery Education 11/11/2023 Active Problems Noted Date Diagnosed Date Interactive Heart Surgery Education 11/11/2023 Active Problems Noted Date Diagnosed Date Interactive Heart Surgery Education 11/11/2023 Additional Source Comments INFORMATION SOURCE (unrecogn ized section and content) DATE CREATED AUTHOR 03/05/2019 [facility] DATE CREATED AUTHOR AUTHOR'S ORGANIZ ATION 03/13/2021 [facility] DATE CREATED AUTHOR AUTHOR'S ORGANIZ ATION 11/18/2022 [facility] DATE CREATED AUTHOR AUTHOR'S ORGANIZ ATION 09/23/2023 [facility] DATE CREATED AUTHOR AUTHOR'S ORGANIZ ATION 11/11/2023 [facility] DATE CREATED AUTHOR AUTHOR'S ORGANIZ ATION 12/13/2023 [facility] DATE CREATED AUTHOR AUTHOR'S ORGANIZ ATION [facility]/02/2024 [facility] DATE CREATED AUTHOR AUTHOR'S ORGANIZ ATION 08/19/2024 [facility] DATE CREATED AUTHOR AUTHOR'S ORGANIZ ATION 09/08/2024 [facility] DATE CREATED AUTHOR AUTHOR'S ORGANIZ ATION 09/20/2024 [facility] DATE CREATED AUTHOR AUTHOR'S ORGANIZ ATION 10/06/2024 [facility] Source Comments (unrecognize d section and content) In the event this informatio n is protected by the Federal Confidentiality of Alcohol and Drug Abuse Patient Records regulations: The Federal rules restrict any use of the information to criminally investigate or prosecute any alcohol or drug abuse patient.[facility] the event this information is protected by the Federal Confidentiality of Alcohol and Drug Abuse Patient Records regulations: The Federal rules restrict any use of the information to criminally investigate or prosecute any alcohol or drug abuse patient.[facility] the event this information is protected by the Federal Confidentiality of Alcohol and Drug Abuse Patient Records regulations: The Federal rules restrict any use of the information to criminally investigate or prosecute any alcohol or drug abuse patient.[facility] the event this information is protected by the Federal Confidentiality of Alcohol and Drug Abuse Patient Records regulations: The Federal rules restrict any use of the information to criminally investigate or prosecute any alcohol or drug abuse patient.[facility] the event this information is protected by the Federal Confidentiality of Alcohol and Drug Abuse Patient Records regulations: The Federal rules restrict any use of the information to criminally investigate or prosecute any alcohol or drug abuse patient.[facility] the event this information is protected by the Federal Confidentiality of Alcohol and Drug Abuse Patient Records regulations: The Federal rules restrict any use of the information to criminally investigate or prosecute any alcohol or drug abuse patient.[facility] the event this information is protected by the Federal Confidentiality of Alcohol and Drug Abuse Patient Records regulations: The Federal rules restrict any use of the information to criminally investigate or prosecute any alcohol or drug abuse patient.[facility] the event this information is protected by the Federal Confidentiality of Alcohol and Drug Abuse Patient Records regulations: The Federal rules restrict any use of the information to criminally investigate or prosecute any alcohol or drug abuse patient.[facility] the event this information is protected by the Federal Confidentiality of Alcohol and Drug Abuse Patient Records regulations: The Federal rules restrict any use of the information to criminally investigate or prosecute any alcohol or drug abuse patient.[facility] the event this information is protected by the Federal Confidentiality of Alcohol and Drug Abuse Patient Records regulations: The Federal rules restrict any use of the information to criminally investigate or prosecute any alcohol or drug abuse patient.[facility] the event this information is protected by the Federal Confidentiality of Alcohol and Drug Abuse Patient Records regulations: The Federal rules restrict any use of the information to criminally investigate or prosecute any alcohol or drug abuse patient.[facility] the event this information is protected by the Federal Confidentiality of Alcohol and Drug Abuse Patient Records regulations: The Federal rules restrict any use of the information to criminally investigate or prosecute any alcohol or drug abuse patient.[facility] the event this information is protected by the Federal Confidentiality of Alcohol and Drug Abuse Patient Records regulations: The Federal rules restrict any use of the information to criminally investigate or prosecute any alcohol or drug abuse patient.[facility] the event this information is protected by the Federal Confidentiality of Alcohol and Drug Abuse Patient Records regulations: The Federal rules restrict any use of the information to criminally investigate or prosecute any alcohol or drug abuse patient.[facility] the event this information is protected by the Federal Confidentiality of Alcohol and Drug Abuse Patient Records regulations: The Federal rules restrict any use of the information to criminally investigate or prosecute any alcohol or drug abuse patient.[facility] the event this information is protected by the Federal Confidentiality of Alcohol and Drug Abuse Patient Records regulations: The Federal rules restrict any use of the information to criminally investigate or prosecute any alcohol or drug abuse patient.[facility] the event this information is protected by the Federal Confidentiality of Alcohol and Drug Abuse Patient Records regulations: The Federal rules restrict any use of the information to criminally investigate or prosecute any alcohol or drug abuse patient.[facility] the event this information is protected by the Federal Confidentiality of Alcohol and Drug Abuse Patient Records regulations: The Federal rules restrict any use of the information to criminally investigate or prosecute any alcohol or drug abuse patient.[facility] the event this information is protected by the Federal Confidentiality of Alcohol and Drug Abuse Patient Records regulations: The Federal rules restrict any use of the information to criminally investigate or prosecute any alcohol or drug abuse patient.[facility]In the event this information is protected by the Federal Confidentiality of Alcohol and Drug Abuse Patient Records regulations: The Federal rules restrict any use of the information to criminally investigate or prosecute any alcohol or drug abuse patient.[facility]In the event this information is protected by the Federal Confidentiality of Alcohol and Drug Abuse Patient Records regulations: The Federal rules restrict any use of the information to criminally investigate or prosecute any alcohol or drug abuse patient.[facility]In the event this information is protected by the Federal Confidentiality of Alcohol and Drug Abuse Patient Records regulations: The Federal rules restrict any use of the information to criminally investigate or prosecute any alcohol or drug abuse patient.[facility]In the event this information is protected by the Federal Confidentiality of Alcohol and Drug Abuse Patient Records regulations: The Federal rules restrict any use of the information to criminally investigate or prosecute any alcohol or drug abuse patient.[facility]In the event this information is protected by the Federal Confidentiality of Alcohol and Drug Abuse Patient Records regulations: The Federal rules restrict any use of the information to criminally investigate or prosecute any alcohol or drug abuse patient.[facility] Reason for Visit (unrecogniz ed section and content) Reason Comments Appointment Reason Comments Cataract Evaluation Reason Comments Pre-Op Exam Reason Comments Post-op (Ophthalmology) Left Eye Eye gabriella n 12 patient had cataract surgery today Reason Comments Superficial punctate keratitis OS Reason Comments Posterior Capsule Opacification Evaluati on Left eye Reason Comments Insurance Inquiry Reason Comments Referral Information Cardiac Preop Checklist Reason Comments Spirometry Specialty Diagnoses / Procedures Referred By Tony t Referred To Contact Diagnoses SOB (shortness of breath) Procedures EVAL AND TREAT - PT [facility] [address] [place] [address] Referral ID Status Reason Start Date Expiration Date Visits Re quested Visits Authorized [id number] 1 1 Reason Comments Follow Up Phone Call RC follow up call f irst attempt. Reason Comments Follow Up Phone Call RC follow up call a ll clear. Reason Onset Date Comments Transition Of Care 12/04/2023 TCM Pharmacy- Hospital discharge 12/03/23 Heart Failure 12/04/2023 Reason Comments Follow Up Phone Call RC f/u all clear Reason Comments Establish Care 12/02/2023 cath and w ith stent Specialty Diagnoses / Procedures Referred By Tony t Referred To Contact Diagnoses Paroxysmal atrial fibrillation (Multi) Procedures ECG 12 Lead Víctor Wills MD [address] [facility] 2, [address] [address] Referral ID Status Reason Start Date Expiration Date V isits Requested Visits Authorized [id number] Authorized 01/12/2024 01/11/2025 1 1 Reason Comments paroxysmal A-fib Reason Comments Gynecologic Exam Vaginal Itching Reason Comments Follow-up No surgeries; no hos pital stays. Both eyes are still itchy. Reason Comments Follow-up 6 months Specialty Diagnoses / Procedures Referred By Tony t Referred To Contact Cardiology Diagnoses Paroxysmal atrial fibrillation (Multi) Procedures Follow Up In Cardiology Víctor Wills MD [address] [place] [address] 2, [place] [id number] Phone: tel: fax: Víctor Wills MD [address] [place] [address] 2, [address] [address] Phone: tel: fax: Referral ID Status Reason Start Date Expiration Date V isits Requested Visits Authorized [id number] Authorized 01/12/2024 01/11/2025 1 1 Reason Comments new patient Pt states she is nathaniel gnosed with allergic conjunctivitis. And she wants to know the cause. Reason Comments Hospital Follow-up [facility] 08/30 Specialty Diagnoses / Procedures Referred By Tony townsend Referred To Contact Diagnoses Paroxysmal atrial fibrillation (Multi) High risk medication use Procedures ECG 12 Lead Víctor Wills MD [address] [place] [address] 2, [address] [address] Phone: tel: fax: Referral ID Status Reason Start Date Expiration Date V isits Requested Visits Authorized [id number] Authorized 10/04/2024 10/04/2025 1 1 Care Teams (unrecognized sec tion and content) Team Status: Active Member Role Status Dates Demarco Newell MD Primary Care Provider Active Team Status: Inactive Member Role Status Dates Demarco Newell MD Primary Care Provider, Referring Pr ovider Active Referral Self Attending Provider Active Intranet Support Relationship Specialty Start Date End Date Demarco Newell MD PCP - General Family Practice 03/30/12 Intranet Support Relationship Specialty Start Date End Date Demarco Newell MD PCP - General Family Practice 03/30/12 Intranet Support Relationship Specialty Start Date End Date Demarco Newell MD PCP - General Family Practice 03/30/12 Intranet Support Relationship Specialty Start Date End Date Demarco Newell MD PCP - General Family Practice 03/30/12 Intranet Support Relationship Specialty Start Date End Date Demarco Newell MD PCP - General Family Medicine 03/30/12 Intranet Support Relationship Specialty Start Date End Date Demarco Newell MD PCP - General Family Medicine 03/30/12 Intranet Support Relationship Specialty Start Date End Date Demarco Newell MD PCP - General Family Medicine 03/30/12 Intranet Support Relationship Specialty Start Date End Date Demarco Newell MD PCP - General Family Medicine 03/30/12 Intranet Support Relationship Specialty Start Date End Date Demarco Newell MD PCP - General Family Medicine 03/30/12 Intranet Support Relationship Specialty Start Date End Date Demarco Newell MD [address] [place] [address] PCP - General Family Medicine 10/31/23 Gaetano Shaw MD [address] [place] [address] Surgeon Cardiac Surg 10/31/23 [place] [address] [place] [address] 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 Helper Cardiology 10/31/23 Intranet Support Relationship Specialty Start Date End Date Demarco Newell MD [address] [place] [address] PCP - General Family Medicine 10/31/23 Gaetano Shaw MD [address] [place], [place] [phone] Surgeon Cardiac Surg 10/31/23 [place] [address] [place] [address] 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 Helper Cardiology 10/31/23 Intranet Support Relationship Specialty Start Date End Date Demarco Newell MD [address] [place], [place] [id number] PCP - General Family Medicine 10/31/23 Gaetano Shaw MD [address] [place] [address] Surgeon Cardiac Surg 10/31/23 [place] [address] [place] [address] 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 Helper Cardiology 10/31/23 Intranet Support Relationship Specialty Start Date End Date Demarco Newell MD [address] [place] [address] PCP - General Family Medicine 10/31/23 Gaetano Shaw MD [address] [place] [phone] Surgeon Cardiac Surg 10/31/23 [place] [address] [place], [place] [phone] 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 Helper Cardiology 10/31/23 Intranet Support Relationship Specialty Start Date End Date Demarco Newell MD [address] [place] [address] PCP - General Family Medicine 10/31/23 Gaetano Shaw MD [address] [place], [place] [phone] Surgeon Cardiac Surg 10/31/23 [place] [address] [place] [address] 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 Helper Cardiology 10/31/23 Intranet Support Relationship Specialty Start Date End Date Demarco Newell MD [address] [place] [address] PCP - General Family Medicine 10/31/23 [place] [address] [place], [place] [phone] Surgeon Cardiac Surg 10/31/23 [place] [address] [place], [place] [phone] 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 Helper Cardiology 10/31/23 Intranet Support Relationship Specialty Start Date End Date Demarco Newell MD [address] [place] [address] PCP - General Family Medicine 10/31/23 Gaetano Shaw MD [address] [address] Surgeon Cardiac Surg 10/31/23 [place] [address] [place] [address] 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 Helper Cardiology 10/31/23 Intranet Support Relationship Specialty Start Date End Date Demarco Newell MD [address] [place] [address] PCP - General Family Medicine 10/31/23 [place] [address] [place], [place] [phone] Surgeon Cardiac Surg 10/31/23 [place] [address] [place] [address] 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 Helper Cardiology 10/31/23 Barry Whiting [facility] [address] [place] [address] Transitional Care Pharmacist Pharmacy 12/04/23 01/02/24 Intranet Support Relationship Specialty Start Date End Date Demarco Newell MD [address] [place] [address] PCP - General Family Medicine 10/31/23 [place] [address] [place] [address] Surgeon Cardiac Surg 10/31/23 [place] [address] [place] [address] 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 Helper Cardiology 10/31/23 Barry Whiting RP [address] [place] [address] Transitional Care Pharmacist Pharmacy 12/04/23 01/02/24 Intranet Support Relationship Specialty Start Date End Date Demarco Newell MD [address] [place] [address] PCP - General Family Medicine 10/31/23 Gaetano Shaw MD [address] [place] [address] Surgeon Cardiac Surg 10/31/23 [place] [address] [place] [address] 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 Helper Cardiology 10/31/23 Barry Whiting [facility] [address] [place] [address] Transitional Care Pharmacist Pharmacy 12/04/23 01/02/24 Intranet Support Relationship Specialty Start Date End Date Demarco Newell MD [address] [place] [address] PCP - General Family Medicine 10/31/23 Gaetano Shaw MD [address] [place] [address] Surgeon Cardiac Surg 10/31/23 [place] [address] [place] [address] 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 Helper Cardiology 10/31/23 Intranet Support Relationship Specialty Start Date End Date Demarco Newell MD [address] [place] [address] PCP - General Family Medicine 10/31/23 Gaetano Shaw MD [address] [facility] [address] [place] [address] Surgeon Cardiac Surg 10/31/23 [place] [address] [place] [address] 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 Helper Cardiology 10/31/23 Barry Whiting [facility] [address] [place] [address] Transitional Care Pharmacist Pharmacy 12/04/23 01/02/24 Intranet Support Relationship Specialty Start Date End Date Demarco Newell MD [address] [place] [address] PCP - General Family Medicine 10/31/23 Gaetano Shaw MD [address] [facility] [address] Surgeon Cardiac Surg 10/31/23 [place] [address] [address] [place], [place] [phone] 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 Helper Cardiology 10/31/23 Barry Whiting [facility] [address] [place] [address] Transitional Care Pharmacist Pharmacy 12/04/23 01/02/24 Intranet Support Relationship Specialty Start Date End Date Demarco Newell MD [address] [place] [address] PCP - General Family Medicine 01/12/24 Team Status: Inactive Member Role Status Dates Demarco Newell MD Primary Care Provider Active Start: January 20, 2024 End: January 20, 2024 Rupert Bird DO Emergency Provider Active Start: January 20, 2024 End: January 20, 2024 Intranet Support Relationship Specialty Start Date End Date Demarco Newell MD [facility] [place] [address] PCP - General Family Medicine 10/31/23 Gaetano Shaw MD [address] [place] [address] Surgeon Cardiac Surg 10/31/23 [place] [address] [place], [place] [phone] 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 Helper Cardiology 10/31/23 Barry Whiting [facility] [address] [place] [phone] Transitional Care Pharmacist Pharmacy 12/04/23 01/02/24 [place] [address] [place] [address] 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 Helper Cardiology 12/23/23 12/23/23 Intranet Support Relationship Specialty Start Date End Date Demarco Newell MD [address] [place] [address] PCP - General Family Medicine 04/07/24 Intranet Support Relationship Specialty Start Date End Date Demarco Newell MD [address] [place] [facility] [place] [address] PCP - General Family Medicine 04/07/24 Intranet Support Relationship Specialty Start Date End Date Demarco Newell MD [address] [place] [address] PCP - General Family Medicine 04/07/24 Intranet Support Relationship Specialty Start Date End Date Demarco Newell MD [address] [place] [id number] PCP - General Family Medicine 01/12/24 Intranet Support Relationship Specialty Start Date End Date Demarco Newell MD [address] [place] [address] PCP - General Family Medicine 04/07/24 Intranet Support Relationship Specialty Start Date End Date Demarco Newell MD [address] [facility] [place] [address] PCP - General Family Medicine 04/07/24 Intranet Support Relationship Specialty Start Date End Date Demarco Newell MD [address] [place] [facility] [place] [address] PCP - General Family Medicine 04/07/24 Team Status: Inactive Member Role Status Dates Demarco Newell MD Primary Care Provide r, Referring Provider Active Start: July 29, 2024 End: July 29, 2024 Referral Self Attending Provider Active Start: 2023 End: July 29, 2024 Team Status: Active Member Role Status Dates Demarco Newell MD Primary Care Provider Active Start: August 28, 2024 Bernardo Russell DO Emergency Provider Active Sta rt: August 28, 2024 Lion Shook MD Admit Provider, Att ending Provider Active Start: August 28, 2024 Team Status: Inactive Member Role Status Dates Demarco Newell MD Primary Care Provider Active Start: August 28, 2024 End: August 29, 2024 Bernardo Russell DO Emergency Provider Active Sta rt: August 28, 2024 End: August 29, 2024 Lion Shook MD Admit Provider, Att ending Provider Active Start: August 28, 2024 End: August 29, 2024 Elton Baron MD Other Provider Active Start: J an2024 End: August 29, 2024 Víctor Wills MD Other Provider Active Start: August 28, 2024 End: August 29, 2024 Team Status: Active Member Role Status Dates Demarco Newell MD Primary Care Provider Active Start: August 29, 2024 Bernardo Russell DO Emergency Provider Active Sta rt: August 29, 2024 Lion Shook MD Admit Provider, Other Provider Ac tive Start: August 29, 2024 Elton Baron MD Attending Provider, Other Provider Active Start: August 29, 2024 Víctor Wills MD Other Provider Active Start: August 29, 2024 Intranet Support Relationship Specialty Start Date End Date Demarco Newell MD [address] [place] [address] [place] [address] PCP - General Family Medicine 01/12/24 Intranet Support Relationship Specialty Start Date End Date Demarco Newell MD [address] [place] [address] [place] [address] PCP - General Family Medicine 01/12/24 Intranet Support Relationship Specialty Start Date End Date Demraco Newell MD [address] [place] [address] [place] [address] PCP - General Family Medicine 01/12/24 Intranet Support Relationship Specialty Start Date End Date Demarco Newell MD [address] [facility] [place] [address] PCP - General Family Medicine 01/12/24 Goals (unrecognized section and content) Goals may be documented in a n alternate sectionGoals may be documented in an alternate section No data available for this sectionGoals may be documented in an alternate sectionGoals may be documented in an [...] BE BASED ON THE PRIMARY CLINICAL RECORDS. [employer] [facility]. provides no warranty or guarantee of the accuracy or completeness of information in this document.
[2024-10-06 10:05] LABS: Basophils Percent Auto 0.7 % (0.2-2.0); Eosinophils Absolute Auto 0.2 10^3/uL (0.0-0.7); Eosinophils Percent Auto 3.2 % (0.9-7.0); Hematocrit 37.1 % (36.0-48.0); Hemoglobin 12.2 g/dL (12.0-16.0); Immature Granulocytes Abs Auto 0.01 10^3/uL (0.00-0.03); Immature Granulocytes Pct Auto 0.2 % (0.0-0.5); Lymphocytes Absolute Auto 1.7 10^3/uL (1.2-3.8); Lymphocytes Percent Auto 28.4 % (20.5-60.0); Mean Corpuscular HGB Conc 32.9 g/dL (29.9-35.2); Mean Corpuscular Hemoglobin 29.5 pg (26.7-34.0); Mean Corpuscular Volume 89.8 fL (81.0-99.0); Mean Platelet Volume 10.6 fL (9.5-13.5); Monocytes Absolute Auto 0.7 10^3/uL (0.3-0.8); Monocytes Percent Auto 11.3 % (1.7-12.0); Neutrophils Absolute Auto 3.3 10^3/uL (1.4-6.5); Neutrophils Percent Auto 56.2 % (43.0-75.0); Platelet Count 200 10^3/uL (150-450); Red Blood Count 4.13 10^6/uL (4.20-5.40); Red Cell Distribution Width 15.5 % (11.0-15.0); White Blood Count 5.9 10^3/uL (4.0-11.0)
[2024-10-06 10:47] LABS: Alanine Aminotransferase 18 U/L (14-59); Anion Gap 10.5; Aspartate Amino Transferase 16 U/L (15-37); Calcium 9.4 mg/dL (8.5-10.1); Carbon Dioxide 27.9 mmol/L (21.0-32.0); Chloride 105 mmol/L (98-107); Chol HDL Ratio 2.2; Cholesterol 123 mg/dL (<=200); Estimated GFR (African America 38 (>=60 mL/min/1.73m^2); Estimated GFR (Non-African Ame 31 (>=60 mL/min/1.73m^2); Glucose 100 mg/dL (74-106); HDL Cholesterol 55 mg/dL (40-60); LDL Cholesterol Calculated 39.8 mg/dL; Potassium 4.4 mmol/L (3.5-5.1); Sodium 139 mmol/L (136-145); Triglycerides 141 mg/dL (<=150); VLDL CHOLESTEROL 28.2 mg/dL
== END 2024-10-06 09:30 | disposition home or self-care (01) ==
LOC: LAB 09:29
PROVIDERS: PCP Family Medicine; Visit Provider Internal Medicine Cardiovascular Disease
DX: E78.2 Mixed hyperlipidemia (principal); I25.10 Atherosclerotic heart disease of native coronary artery without angina pectoris; N18.30 Chronic kidney disease, stage 3 unspecified
CPT/HCPCS: 36415; 80048; 80061; 84450; 84460; 85025

== ENCOUNTER 2024-10-10 07:50 | Outpatient (RCR) | payer MEDICARE, OTHER, SELFPAY | END 2024-11-05 13:23 | disposition home or self-care (01) | LOC: MM 07:50 | PROVIDERS: PCP Family Medicine; Visit Provider Internal Medicine | DX: Z51.81 Encounter for therapeutic drug level monitoring (principal); Z79.01 Long term (current) use of anticoagulants; I48.91 Unspecified atrial fibrillation | CPT/HCPCS: 85610; G0463 ==

== ENCOUNTER 2024-11-09 04:02 | Outpatient (RCR) | payer MEDICARE, OTHER, SELFPAY | END 2024-12-08 15:08 | disposition home or self-care (01) | LOC: MM 04:02 | PROVIDERS: PCP Family Medicine; Visit Provider Internal Medicine | DX: Z51.81 Encounter for therapeutic drug level monitoring (principal); Z79.01 Long term (current) use of anticoagulants; I48.91 Unspecified atrial fibrillation | CPT/HCPCS: 85610; G0463 ==

== ENCOUNTER 2024-12-09 04:44 | Outpatient (RCR) | payer MEDICARE, OTHER, SELFPAY | END 2025-01-07 15:11 | disposition home or self-care (01) | LOC: MM 04:44 | PROVIDERS: PCP Family Medicine; Visit Provider Internal Medicine | DX: Z51.81 Encounter for therapeutic drug level monitoring (principal); Z79.01 Long term (current) use of anticoagulants; I48.91 Unspecified atrial fibrillation | CPT/HCPCS: 85610; G0463 ==

== ENCOUNTER 2025-01-09 08:01 | Outpatient (RCR) | payer MEDICARE, OTHER, SELFPAY | END 2025-02-03 14:52 | disposition home or self-care (01) | LOC: MM 08:01 | PROVIDERS: PCP Family Medicine; Visit Provider Internal Medicine | DX: Z51.81 Encounter for therapeutic drug level monitoring (principal); Z79.01 Long term (current) use of anticoagulants; I48.91 Unspecified atrial fibrillation | CPT/HCPCS: 85610; G0463 ==

== ENCOUNTER 2025-02-08 02:29 | Outpatient (RCR) | payer MEDICARE, OTHER, SELFPAY | END 2025-03-10 16:54 | disposition home or self-care (01) | LOC: MM 02:29 | PROVIDERS: PCP Family Medicine; Visit Provider Internal Medicine | DX: Z51.81 Encounter for therapeutic drug level monitoring (principal); Z79.01 Long term (current) use of anticoagulants; I48.91 Unspecified atrial fibrillation | CPT/HCPCS: 85610; G0463 ==

== ENCOUNTER 2025-02-28 08:14 | Outpatient (OUT) | payer MEDICARE, OTHER, SELFPAY ==
--- OUTSIDE RECORDS SUMMARY | 2013-05-03 10:10 | XMS_ITS | Continuity of Care Document ---
Author Organization [facility] Address [address] [address] [employer] [place] [address] Phone Care Team Providers Care Applications Development Consultant Name Role Phone Vivienne ROCHA, Nora Unavailable Unavailable Allergies, Adverse Reactions, Alerts Substance Reaction Status Criticality codeine nausea Active No Information SERINA Inhibitors itching/rash Active No Informatio n Medications Medication Instructions Dosage Effective Dates (start - stop) Status Comments Vitamin B-12 1,000 mcg/mL Oral Drops QD - Active Culturelle 10 billion cell capsule take 1 by Oral route once - Active Norvasc 5 mg tablet take 1 tablet (5MG) by oral route every day 5 MG - Active hydrochlorothiazide 25 mg tablet take 1 tablet (25MG) by oral route every day 25 MG - Active Prozac 20 mg capsule take 1 capsule (20MG) by oral route 2 times every day in the morning - Active simvastatin 40 mg tablet take 1 tablet (40MG) by oral route every day in the evening 40 MG - Active EXCEDRIN EXTRA STRENGTH (unknown strength) 2 tabs qd Not Available - Active Soheila-D 12 Hour 60 mg-120 mg tablet,extended release prn - Active Procedures Procedure Date Medical Eye Exam, Established With Tx Se Ext Ophthalmoscopy, SUBSEQUENT 13 Ext Ophthalmoscopy, SUBSEQUENT 13 OCT New Patient, Moderate Ext Ophthalmoscopy, Initial Ext Ophthalmoscopy, Initial Advance Directives Directive Yes / No Effective Date File Name Resuscitation Not Answered N/A N/A Life Support Not Answered N/A N/A Intubation Not Answered N/A N/A Antibiotics Not Answered N/A N/A IV Fluid Support Not Answered N/A N/A Tube Feed Not Answered N/A N/A Other Directive N/A N/A WARNING:The information contained in this section is historical and is provided for information only and does not constitute a legal document or any assurance that the information is still accurate. Please verify the information with the doyle of the legal document before using it for clinical purposes. Encounters Encounter Description Practice Location Reason(s) For Visit Diagnoses Date Provider Providers Copied on Encounter [facility] , [address] [place], tel:[phone] TONYA Holder Progressive high (degenerative) myopiaSecondary pigmentary degeneration of retinaVitreous degenerationSenile nuclear sclerosis 3 Vivienne Melendez. [address], [address], [place], [place], [id number] , [place]. tel:[phone] Referring Provider: Nora Hale, [address], [place], [address] . tel:[phone] New Patient, Moderate [facility] , [address] [place], [facility], [place] tel:[phone] TONYA Holder Progressive high (degenerative) myopiaSecondary pigmentary degeneration of retinaVitreous degenerationSenile nuclear sclerosis 3 Mannie Quang. [address], [address], [place], [place], [id number] , [place]. tel:[phone] Family History Family Member Type Diagnosis Age At Onset Problem (finding) Family history of Heart Disease Problem (finding) Family history of Cance r Problem (finding) Family history of HBP Payers Payer name Insurance type Covered republican ID Authoriza tion(s) No Information Social History Type Description Quantity Date Captured Comments Alcohol Use Details Caffeine Use Details 1 cup per day Tobacco Use Status No Information Smoking Status Former smoker Non-Smoking Tobacco Use Details : No Details Available : No Details Available Sex Female Vital Signs Date / Time: Height Weight BMI Pulse Rate Blood Pressure Temperature Respiratory Rate Body Surface Area Head Circumference Head Circ. Percentile Wt./Daniel. 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 - Posterior vitreous detachment was again noted on examination today and explained to the patient. There is no new evidence of retinal pathology. All signs and symptoms of retinal detachment and tears were discussed in detail. The patient was instructed to call the office immediately if any symptoms are noted. Related to PVD (Vitreous degeneration) - Return PRNCharly middleton patient to follow up with Dr. Wilson in the next 3-4 months and regularly after that. 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 We advised the patient the follow an Amsler grid and to call immediately with any changes in vision. 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 - Advised patient to keep all follow up appointments with Dr. Wilson. Related to Senile nuclear sclerosis - Return in [address] Chand for follow up exam. Related to Progressive high (degenerative) myopia Progressive high (de generative) myopia OU Condition: mild, chronic, stable, OS>OD. - Mild myopic degeneration was noted on examination today and explained to the patient. There is no evidence of a retinal tear, break or detachment, no signs of choroidal neovascularization noted. Signs and symptoms of retinal detachment and tears were discussed in detail. Patient instructed to call the office immediately if any symptoms noted. Recommend the patient return to office for follow up. Appropriate follow up with primary eye healthcare administration intern was recommended. 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 - Posterior vitreous detachment was noted on examination today and explained to the patient. There is no evidence of a retinal tear, break or detachment. Signs and symptoms of retinal detachment and tears were discussed in detail. Patient instructed to call the office immediately if any symptoms noted. Recommend the patient return to office for follow up. Related to PVD (Vitreous degeneration) Senile nuclear scler osis OU Condition: mild, chronic, worsening. - The progression of cataracts was noted on examination today and discussed with the patient. Related to Senile nuclear sclerosis Assessments Type Assessment Date No Information Patient Care Teams Name Effective Dates (start - stop) Status Members No Information
--- OUTSIDE RECORDS SUMMARY | 2024-04-15 07:30 | XMS_ITS ---
Author Organization [facility] [place] Address [address] [place] [address] [address] [place] [address] Care Team Providers Care Sales Representative Advertising Name Role Phone Demarco Graves Primary Care Provider Unavailabl e [place], Wassim Unavailable [phone] Ata Toscano MD Unavailable Unavailable REASON FOR VISIT 4 month follow up Encounters Encounter Location Date Provider Diagnosis [facility] [place] [address] [facility] [address] [place] [address] 04/15/2024 Wassim [place]-Hitti Plan Of Treatment No Information Progress Notes * Cece HUBBARD SDOB: [birth year] (80 yo F)Acc No.[id number]:04/15/2024 Progress Notes Patient: Cece RANKIN Provider: Tammy Zuniga MD :1945 A ge:79 Y S ex:Female Date:04/15/2024 Address:[address] [place], [id number] Pcp:Demarco Graves Subjective: * Chief Complaints: * 1 . 4 month follow up. * Medical History: Objective: * Vitals: Assessment: Plan: * Treatment: * * Electronic signature of Torey Zuniga MD on 02/28/2025 at 08:19 AM EDT Sign off status: Pending * Provider: Tammy Zuniga MD Date: 0 04/15/2024 Generated for Rocio rocha/Ruma/eTransmitting on: 0 02/28/2025 08:19 AM EDT
--- OUTSIDE RECORDS SUMMARY | 2024-10-20 09:00 | XMS_ITS ---
Author Organization [facility] in [place] Address [address] [place] [address] Care Team Providers Care Rn Bariatric Name Role Phone Pablo Graves Primary Care Provider [phone] REASON FOR VISIT Sick Encounters Encounter Location Date Provider Diagnosis [facility] [address] [facility] [place] [address] 10/20/2024 Pablo Graves Plan Of Treatment No Information Progress Notes * Cece HUBBARD SDOB: [birth year] (80 yo F)Acc No.[id number]:10/20/2024 UNLOCKED PROGRESS NOTE Progress Note Patient: Cece RANKIN Provider: Danna Graves MD (TTC) :1945 A ge:79 Y S ex:Female Date:10/20/2024 Address:[facility] [address] [place], [id number] Subjective: * Chief Complaints: * 1 . Sick. * Medical History: Objective: * Vitals: Assessment: Plan: * Treatment: * * Electronic signature of Pablo Graves MD, [id number] on 02/28/2025 at 08:19 AM EDT Sign off status: Pending Visit Status: C ANC (Cancelled) * Provider: Danna Graves MD (TTC) Date: 10/20/2024 Generated for Printi ng/Faxing/eTransmitting on: 02/28/2025 08:19 AM EDT
--- OUTSIDE RECORDS SUMMARY | 2025-01-10 06:25 | XMS_ITS ---
Author Organization [facility] in [place] Address [address] [place] [address] Care Team Providers Care English Language Learner Tutor Name Role Phone Keronalbania Pablo Primary Care Provider [phone] REASON FOR VISIT ER Med Medications Medication SIG (Take, Route, Fr equency, Duration) Notes Start Date End Date Status Nebivolol HCl 5 MG 1 tablet Orally Once a day for 30 days 01/10/2025 Active Encounters Encounter Location Date Provider Diagnosis [address] [place] [address] 01/10/2025 Pablo Star Plan Of Treatment Medication Medication Name Sig Start Date Stop Date Notes Metoprolol Succinate ER 25 MG 1 tablet Orally Once a day 0 08/25/2024 Nebivolol HCl 5 MG 1 tablet Orally Once a day for 30 days 01/10/2025 Progress Notes * Cece HUBBARD SDOB: [birth year] (79 yo F)Acc No.[id number]:01/10/2025 Patient: Opal RANKINecca Steve :1945 A ge:79 Y S ex:Female Address:[place], [address] * Refills Start Nebivolol HCl Tablet, 5 MG, Orally, 30, 1 tablet, Once a day, 30 days, Refills=11 Stop Metoprolol Succinate ER Tablet Extended Release 24 Hour, 25 MG, Orally, 1 tablet, Once a day * true * Date: Generated for [facility] aj/Ruma/eTransmitting on: 0 02/28/2025 08:18 AM EDT
--- OUTSIDE RECORDS SUMMARY | 2025-02-17 05:00 | XMS_ITS ---
Author Organization [facility] in [place] Address [address] [place] [address] Care Team Providers Care Cell Pourer Name Role Phone Pablo Graves Primary Care Provider Stefanie Vidales Unavailable [phone] Allergies Allergen (clinical drug ingredient) Drug/Non Drug Allergy documented on EMR Reaction Allergy Type Onset Date Status gabapentin Gabapentin Cognitive Impairment Drug Allergy Active angiotensin-convert ing enzyme inhibitor (FN) SERINA Inhibitors hives Drug Allergy Active amlodipine Amlodipine Swelling Drug Allergy Activ e diltiazem Diltiazem shortness of breath Drug Allergy Active metoprolol Metoprolol Circulation Issues Drug Allergy Active REASON FOR VISIT Dr Graves Pt- sick cold s/s, patient says she has a sinus infection, yellow drainage, started 4 days ago, BREWSTER, and sore throat Medications Medication SIG (Take, Route, Frequency, Duration) Notes Start Date End Date Status Liothyronine Sodium 5 MCG TAKE 1 TABLET BY MOUTH EVERY DAY for 90 Active Loperamide HCl 2 MG 2 capsule as needed Orally once daily 08/25/2024 Active Nebivolol HCl 5 MG 1 tablet Orally Once a day for 30 days 01/10/2025 Active Pantoprazole Sodium 40 MG TAKE 1 TABLET BY MOUTH EVERY DAY for 90 Active Plavix 75 MG 1 tablet Orally Once a day 12/19/2023 Active Atorvastatin Calcium 40 MG TAKE 1 TABLET BY MOUTH EVERY DAY for 90 Active Doxepin HCl 10 MG TAKE 1 CAPSULE BY MOUTH EVERY DAY AT BEDTIME FOR 30 DAYS for 90 Active hydrALAZINE HCl 25 MG 1 tablet with food Orally Twice a day Active Isosorbide Mononitrate ER 30 MG TAKE 1 TABLET BY MOUTH EVERY 24 HOURS for 90 Active Lexapro 20 MG 1 tablet Orally Once a day for 30 days 11/11/2022 Active Albuterol Sulfate HFA 108 (90 Base) MCG/ACT INHALE 1 PUFF INTO THE LUNGS EVERY 4 HOURS NEEDED for 30 Active Tobramycin-dexAMETHaso ne 0.3-0.1 % 1 application into the lower eyelid of affected eye Ophthalmic Three times a day 08/25/2024 Active Azithromycin 250 MG as directed Orally daily for 5 days take two tablets po on first day than one tablet po days 2-5 02/17/2025 Active Warfarin Sodium 5 MG 1 tablet Orally Onc e a day 08/25/2024 Active Social History Tobacco Use: Social History Observation Description Date Details (start date - stop date) Never Smoker NA - NA Tobacco Use/Smoking Question Answer Notes Patient is a nonsmoker AUDIT-C (Standard) Question Answer Notes Did you have a drink containing alcohol in the p ast year? No Points 0 Interpretation Negative Problems Problem Type SNOMED Code ICD Code Onset Dates Problem Status W/U Status Risk Notes Problem Sinusitis (14353025) Sinusitis (J32.9) Active confirmed Vital Signs Weight 177 lbs 02/17/2025 Height 64 in 02/17/2025 Blood pressure systolic 118 mm Hg 02/18/20 25 Blood pressure diastolic 70 mm Hg 025 Temperature 98.7 degrees Fahrenheit 02/18/20 25 BMI 30.38 kg/m2 02/17/2025 Encounters Encounter Location Date Provider Diagnosis [facility] [address] [place] [address] 02/17/2025 Stefanie Flash Sinusitis J32.9 Assessments Encounter Date Diagnosis (ICD Code) Assessment Notes Treatment Notes Treatment Clinical Notes Section Notes 02/17/2025 Sinusitis (ICD-10 - J32.9) fu if not improving Plan Of Treatment Medication Medication Name Sig Start Date Stop Date Notes Azithromycin 250 MG as directed Orally daily for 5 days 02/17/2025 take two tablets po on first day than one tablet po days 2-5 Treatment Notes Assessment Notes Sinusitis fu if not improving Next Appt Details Follow Up: prn, Reason: Progress Notes * Cece HUBBARD SDOB: [birth year] (80 yo F)Acc No.[id number]:02/17/2025 Progress Note Patient: Faustino Cece NESS Steve Provider: Star Vidales ([facility]), IS SUPPORT ANALYST :1945 A ge:80 Y S ex:Female Date:02/17/2025 Address:[address] [place] [address] , [place], [id number] Pcp:Pablo Graves Check In:08:54 AM ESTCheck O ut:09:10 AM EST Subjective: * Chief Complaints: * [address] Dr Graves Pt- sick cold s/s. 2. patient says she has a sinus infection, yellow drainage, started 4 days ago, BREWSTER, and sore throat. * HPI: G eneral: sx started 4 days ago sinus pressure, drainage, BREWSTER, ST some cough no fever, no bodyaches fatigue. * ROS: G eneral/Constitutional: Fever d enies. H eadache a dmits. W eight loss d enies. O phthalmologic: Discharge d enies. E ye Pain d enies. I tching and redness d enies. E NT: Nasal discharge a dmits. N tasha congestion a dmits and sinus pressure. S ore throat a dmits. C ardiovascular: Chest tightness/ heavy pressure d enies. R apid heart rate d enies. S welling of extremities d enies. C hest pain d enies. ? R espiratory: Productive cough d enies. C hest pain d enies. C ough s ome. S hortness of breath d enies. W heezing d enies. G astrointestinal: Abdominal pain d enies. C onstipation d enies. D ecreased appetite d enies. D iarrhea d enies. N ausea d enies. V omiting?denies. G enitourinary: Urinary incontinence d enies. P ainful urination d enies. M usculoskeletal: Back pain d enies. N danni pain d enies. M uscle aches d enies. S kin: Rash d enies. S kin lesion(s) d enies. ? * Active Problem List F41.9 Anxiety Modified On:11/11/2022W/U Status:confirmed G47.00 Insomnia, unspecifie d type Modified On:09/09/2023 Status:confirmed M25.819 Shoulder impingement Modified On:06/17/2023 Status:confirmed R42 Vertigo Modified On:07/07/2023 Status:confirmed I25.10 Coronary artery dise ase Modified On:09/09/2023 Status:confirmed I50.33 Acute on chronic nathaniel stolic (congestive) heart failure Modified On:07/14/2023 Status:confirmed I10 BP (high blood press ure) Modified On:07/17/2023 Status:confirmed E03.9 Hypothyroid Modified On:07/17/2023 Status:confirmed R06.02 Shortness of breath Modified On:07/22/2023 Status:confirmed I34.0 Nonrheumatic mitral (valve) insufficiency Modified On:10/06/2023 Status:confirmed R07.9 Chest pain Modified On:08/26/2023 Status:confirmed I35.1 Nonrheumatic aortic (valve) insufficiency Modified On:09/05/2023 Status:confirmed I10 Essential (primary) hypertension Modified On:09/05/2023 Status:confirmed I48.91 Atrial fibrillation Modified On:10/06/2023 Status:confirmed R00.0 Tachycardia Modified On:10/07/2023 Status:confirmed R00.8 Trigeminy Modified On:10/07/2023 Status:confirmed I48.91 Atrial fibrillation, unspecified Modified On:10/07/2023 Status:confirmed I25.10 CAD (coronary artery disease) Modified On:11/04/2023 Status:confirmed I48.91 New onset a-fib Modified On:11/06/2023 Status:confirmed I48.91 Atrial fibrillation with RVR Modified On:11/06/2023 Status:confirmed 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 Modified On:11/06/2023 Status:confirmed K21.9 GERD (gastroesophage al reflux disease) Modified On:12/19/2023 Status:confirmed R06.00 Dyspnea Modified On:12/31/2023U Status:confirmed H01.009 Blepharitis Modified On:01/26/2024 Status:confirmed H10.10 Allergic conjunctivi tis Modified On:04/05/2024 Status:confirmed J01.90 Acute sinusitis Modified On:04/05/2024 Status:confirmed I48.91 Afib Modified On:09/16/2024 Status:confirmed E03.9 Acquired hypothyroid ism Modified On:09/16/2024 Status:confirmed N18.30 Acute worsening of s tage 3 chronic kidney disease Modified On:09/16/2024 Status:confirmed E78.5 Dyslipidemia Modified On:09/16/2024 Status:confirmed J90 Pleural effusion Modified On:09/27/2024 Status:confirmed J32.9 Sinusitis Modified On:02/17/2025 Status:confirmed * Medical History: D epression, Anxiety, Pulmonary, Hypertension, Raynaud's, Mitral Valve Regurtitation, IBS-D.? * Surgical History: R ight Knee Replacement 2012, Lumbar Discetomy 2016, Back Surgery 2018, Stent Placement 2019. * Hospitalization/Major Diagno stic Procedure: C ongestion 06/2023, A-fib 10/04, A-Fib 08/2024. * Family History: F ather: , diagnosed with Unspecified heart disease. M other: , ovarian cancer, diagnosed with Other malignant neoplasm of unspecified site. B dandreer(s): alive, mva. S on(s): , stomach cancer, diagnosed with Other malignant neoplasm of unspecified site. D jose raul(s): alive, hypothyroidism, diagnosed with Unspecified essential hypertension. 1 brother(s) . 1 son(s) , 1 daughter(s) . . * Social History: T obacco Use: T obacco Use/Smoking P atient is a n onsmoker D rug/Alcohol: A BETO-C (Standard) D id you have a drink containing alcohol in the past year? N o P oints 0 I nterpretation N egative * Medications: T aking Albuterol Sulfate HFA 108 (90 Base) MCG/ACT Aerosol Solution INHALE 1 PUFF INTO THE LUNGS EVERY 4 HOURS NEEDED , Taking Atorvastatin Calcium 40 MG Tablet TAKE 1 TABLET BY MOUTH EVERY DAY , Taking Doxepin HCl 10 MG Capsule TAKE 1 CAPSULE BY MOUTH EVERY DAY AT BEDTIME FOR 30 DAYS , Taking hydrALAZINE HCl 25 MG Tablet 1 tablet with food Orally Twice a day , Taking Isosorbide Mononitrate ER 30 MG Tablet Extended Release 24 Hour TAKE 1 TABLET BY MOUTH EVERY 24 HOURS , Taking Lexapro(Escitalopram Oxalate) 20 MG Tablet 1 tablet Orally Once a day , Taking Liothyronine Sodium 5 MCG Tablet TAKE 1 TABLET BY MOUTH EVERY DAY , Taking Loperamide HCl 2 MG Capsule 2 capsule as needed Orally once daily , Taking Nebivolol HCl 5 MG Tablet 1 tablet Orally Once a day , Taking Pantoprazole Sodium 40 MG Tablet Delayed Release TAKE 1 TABLET BY MOUTH EVERY DAY , Taking Plavix(Clopidogrel Bisulfate) 75 MG Tablet 1 tablet Orally Once a day , Taking Tobramycin-dexAMETHasone 0.3-0.1 % Ointment 1 application into the lower eyelid of affected eye Ophthalmic Three times a day , Taking Warfarin Sodium 5 MG Tablet 1 tablet Orally Once a day , Medication List reviewed and reconciled with the patient * Allergies: A CE Inhibitors: hives - Allergy - Criticality High, Gabapentin: Cognitive Impairment - Allergy - Criticality High, Amlodipine: Swelling - Allergy - Criticality High, Metoprolol: Circulation Issues - Allergy - Criticality High, Diltiazem: shortness of breath - Allergy - Criticality High. Objective: * Vitals: W t:177lbs, Ht: 64 in, BP:118/70mm Hg, Temp:98.7F, BMI:30.38Index, Ht-cm: 162.56 cm, Wt-k.29 kg. * Examination: G eneral Examinations: GENERAL APPEARANCE: a lert and oriented, i n no acute distress. EYES: c onjunctiva normal, sclera non-icteric. NOSE: n ormal external appearance. THROAT: e rythema. LYMPH NODES: c ervical adenopathy. LUNGS: c lear to auscultation bilaterally. CARDIO: r egular rate and rhythm, S1, S2 normal. MUSCULOSKELETAL: G ait and station normal. SKIN: w arm and dry. Assessment: * Assessment: 1. S inusitis - J32.9 (Primary) Plan: * Treatment: * Preventive Medicine: Screenings/Counseling: B IL ACTION PLAN Above Normal BMI Follow-up D ietary management education, guidance, and counseling F ALL RISK SCREENING Fall Risk Assessment: N o falls in the past year * Follow Up: p rn * * Electronically signed by Ginette Vidales , DYEING MACHINE TENDER, SIXTH GRADE TEACHER.IS SUPPORT ANALYST.[id number] on 02/18/2025 at 02:45 PM EDT Sign off status: Completed Visit Status: C HK (Check Out) true * Provider: Star Vidales ([facility]), IS SUPPORT ANALYST Date: 02/17/2025 Generated for Enedinai ng/Fainessag/eTransmitting on: 02/28/2025 08:18 AM EDT History and Physical Notes * HPI (History of Present Illness) Category Sub-Category Detail Notes Category Not es General sx started 4 days ago sinus pressure, drainage, BREWSTER, ST some cough no fever, no bodyaches fatigue Examination Category Sub-Category Detail Notes Category Not es General Examinations GENERAL APPEARANCE: alert a nd oriented, in no acute distress EYES: conjunctiva normal, sclera non-icteric EARS: NOSE: normal external appe arance THROAT: erythema CARDIO: regular rate and rhy thm, S1, S2 normal LUNGS: clear to auscultatio n bilaterally ABDOMEN: SKIN: warm and dry BACK: MUSCULOSKELETAL: Gait and station nor mal LYMPH NODES: cervical adenopathy
--- OUTSIDE RECORDS SUMMARY | 2025-02-24 10:20 | XMS_ITS | Encounter Summary ---
Author Organization [facility] Address [address] [place] [address] Phone Care Team Providers Care Pin Machine Operator Name Role Phone Demarco Graves MD Primary Care Provider [phone] Reason for Referral * Consultation (Routine) - Authorized Specialty Diagnoses / Procedures Referred By Tony t Referred To Contact Cardiology Diagnoses Coronary artery disease, unspecified vessel or lesion type, unspecified whether angina present, unspecified whether [place] or transplanted heart Procedures Follow Up In Cardiology Víctor Jones MD [address] [place], [place] [address] 2, [address] [address] Phone: tel: fax: Víctor Jones MD [address] [place] [address] [facility], [address] [address] Phone: tel: fax: Referral ID Status Reason Start Date Expiration Date V isits Requested Visits Authorized [id number] Authorized 02/24/2025 02/24/2026 1 1 * CV Imaging (Routine) - Authorized Specialty Diagnoses / Procedures Referred By Tony t Referred To Contact Cardiology Diagnoses Coronary artery disease, unspecified vessel or lesion type, unspecified whether angina present, unspecified whether [place] or transplanted heart Aortic valve insufficiency, etiology of cardiac valve disease unspecified Procedures Transthoracic Echo Limited VT ECHO TRANSTHORC R-T 2D W/WO M-MODE REC F-UP/LMTD VT DOPPLER ECHO COLOR FLOW VELOCITY MAPPING VT DOPPLER ECHO PULSE WAVE W/SPECTRAL F-UP/LMTD STD Víctor Jones MD [address], [address] [address] Phone: tel: fax: Referral ID Status Reason Start Date Expiration Date Visits Requested Visits Authorized [id number] Authorized Perform Procedure 02/24/2025 02/24/2026 1 1 Reason for Visit * Reason Comments Follow-up Patient here for 6 m [facility] follow up for coronary artery disease, c/o fatigue and occasional shortness of breath on exertion. * Consultation (Routine) - Authorized Specialty Diagnoses / Procedures Referred By Contac t Referred To Contact Cardiology Diagnoses Coronary artery disease, unspecified vessel or lesion type, unspecified whether angina present, unspecified whether [place] or transplanted heart Procedures Follow Up In Cardiology Víctor Jones MD [address] [place] [address], [address] [address] Phone: tel: fax: Víctor Jones MD [address] [place] [address], [address] [address] Phone: tel: fax: Referral ID Status Reason Start Date Expiration Date V isits Requested Visits Authorized [id number] Authorized 07/16/2024 07/16/2025 1 1 Encounter Details Date Type Department Care Team (Latest Contact Info) Description 02/24/2025 10:20 AM EDT Office Visit [facility] [address] [address] Víctor Jones MD [address] [place] [address], [address] [address] Coronary artery disease, unspecified vessel or lesion type, unspecified whether angina present, unspecified whether [place] or transplanted heart (Primary Dx); Paroxysmal atrial fibrillation (Multi); High risk medication use; Hyperlipidemia, unspecified hyperlipidemia type; Diastolic dysfunction; Aortic valve insufficiency, etiology of cardiac valve disease unspecified; Mitral valve insufficiency, unspecified etiology; Mixed hyperlipidemia; History of PTCA; BMI 31.0-31.9,adult; Former smoker; Obesity, Class I, BMI 30-34.9 Social History Tobacco Use Types Packs/Day Years Used Date Smoking Tobacco: Former Cigarettes S tarted: 1993 Smokeless Tobacco: Never Tobacco Cessation:Counseling Given: Not Answered Alcohol Use Standard Drinks/Week Comments Never 0 (1 standard drink = 0.6 oz pur e alcohol) Comments Unknown Sex and Gender Information Value Date Recorded Sex Assigned at Not on file Legal Sex Female 5:39 AM EST Gender Identity Not on file Sexual Orientation Not on file documented as of this encounter Last Filed Vital Signs Vital Sign Reading Time Taken Comments Blood Pressure 114/68 02/24/2025 10:30 AM EDT Pulse 52 02/24/2025 10:30 AM EDT Temperature - - Respiratory Rate - - Oxygen Saturation - - Inhaled Oxygen Concentration - - Weight 79.7 kg (175 lb 9.6 oz) 02/24/2025 10:30 AM EDT Height 160 cm (5' 3 ) 02/24/2025 10:30 AM EDT Body Mass Index 31.11 02/24/2025 10:30 AM EDT documented in this encounter Patient Instructions * Patient Instructions* Alison Segundo LPN - 02/24/2025 10:20 AM EDT Please bring all medicines, vitamins, and herbal supplements with you when you come to the office. Prescriptions will not be filled unless you are compliant with your follow up appointments or have a follow up appointment scheduled as per instruction of your physician. Refills should be requested at the time of your visit. Echo Lab work 7 month follow up BMI was above normal measurement. Current weight: 79.7 kg (175 lb 9.6 oz) Weight change since last visit (-) denotes wt loss 2.4 lbs Weight loss needed to achieve BMI 25: 34.8 Lbs Weight loss needed to achieve BMI 30: 6.6 Lbs Provided instructions on dietary changes Provided instructions on exercise. documented in this encounter Progress Notes * Víctor Jones MD - 02/24/2025 10:20 AM EDT HPI Patient is in the office for follow-up for CAD and previous coronary angioplasty along with diastolic LV dysfunction, aortic and mitral regurgitation, paroxysmal atrial fibrillation and essential hypertension. Since the last visit he has had no cardiac events whatsoever. Denies any ER visit orthopnea PND chest pain or any tacky arrhythmias. She has had no bleeding complications. Her last echocardi ogram was October 2023 at the [facility] and she is due for a follow-up echocardiogram. She hasnot had any recent blood work which will be scheduled. Her cardiovascular examination was unremarkable, her lungs were clear. Her medication reviewed, she is compliant with medical therapy. Assessment/recommendations: 3-ulp-tabvbg coronary artery disease status post angioplasty of the LAD in the remote past and angioplasty of the RCA with stenting for 70% stenosis at [facility] November 2023. Present medical therapy will beleft unchanged. Risk factor for CAD have been controlled and the patient has been compliant. Emphasized the need for regular walking program up to 30 minutes 2-left ventricular diastolic dysfunction, currently on diuretic therapy with no recurrent symptoms.Blood pressure is controlled. 3-moderate mitral regurgitation, annual echocardiogram will be scheduled for follow-up soon 4-moderate aortic regurgitation, annual echocardiogram will be scheduled 5-paroxysmal atrial fibrillation it occurred once during the ACS intervention with no recurrences. Currently on warfarin, no recurrent atrial fibrillation and no bleeding complications 6-essential hypertension, currently under control, patient follow low-fat low- cholesterol low-salt diet, no sleep apnea is noted. 7-stage IIIa chronic kidney disease to be monitored and avoiding nephrotoxic medications. Basic metabolic profile is ordered 8-class I obesity, encouragement provided for proper diet and exercise to keep her weight in the ideal weight range 9-dyslipidemia on high intensity statin to be monitored closely, reminded patient to stay on low-fat diet, maintain regular exercise and lose more weight. ROS Review of system was normal Vitals: 02/24/25 1030 BP: 114/68 BP Location: Left arm Patient Position: Sitting Pulse: 52 Weight: 79.7 kg (175 lb 9.6 oz) Height: 1.6 m (5' 3 ) Objective [...] content normal. Judgment: Judgment normal. Allergies Diltiazem, Rodney inhibitors, Gabapentin, Metoprolol, Morphine, Amiodarone, Eliquis [apixaban], Potassium, and Amlodipine Current Medications Current Outpatient Medications Medication Instructions albuterol 90 mcg/actuation inhaler 2 puffs, Every 6 hours PRN atorvastatin (LIPITOR) 40 mg, Daily clopidogrel (PLAVIX) 75 mg, oral, Daily doxepin (SINEQUAN) 10 mg, Nightly furosemide (LASIX) 40 mg, oral, Daily hydrALAZINE (APRESOLINE) 25 mg, 2 times daily isosorbide mononitrate ER (IMDUR) 30 mg, Daily liothyronine (CYTOMEL) 5 mcg, Daily loperamide (IMODIUM) 2 mg, 3 times daily PRN medical cannabis Take by mouth. cream multivitamin tablet 1 tablet, Daily nebivolol (BYSTOLIC) 5 mg, Daily pantoprazole (PROTONIX) 40 mg, Daily before breakfast potassium chloride ER (Micro-K) 10 mEq ER capsule 10 mEq, oral, Daily, Do not crush or chew. vit C/E/zinc/lutein/zeaxanthin (OCUVITE EYE HEALTH ORAL) 1 capsule, Daily warfarin (COUMADIN) 5 mg Assessment/Plan 1. Coronary artery disease, unspecified vessel or lesion type, unspecified whether angina present, unspecified whether [place] or transplanted heart Follow Up In Cardiology Alanine Aminotransferase Aspartate Aminotransferase Basic Metabolic Panel CBC Lipid Panel Transthoracic Echo Limited Follow Up In Cardiology Alanine Aminotransferase Aspartate Aminotransferase Basic Metabolic Panel CBC Lipid Panel 2. Paroxysmal atrial fibrillation (Multi) Basic Metabolic Panel CBC potassium chloride ER (Micro-K) 10 mEq ER capsule Basic Metabolic Panel CBC 3. High risk medication use potassium chloride ER (Micro-K) 10 mEq ER capsule 4. Hyperlipidemia, unspecified hyperlipidemia type Alanine Aminotransferase Aspartate Aminotransferase Lipid Panel Alanine Aminotransferase Aspartate Aminotransferase Lipid Panel 5. Diastolic dysfunction 6. Aortic valve insufficiency, etiology of cardiac valve disease unspecified Transthoracic Echo Limited 7. Mitral valve insufficiency, unspecified etiology 8. Mixed hyperlipidemia 9. History of PTCA 10. BMI 31.0-31.9,adult 11. Former smoker Scribe Attestation By signing my name below, Alison Calderón LPN , Scribe attest that this documentation has been prepared under the direction and in the presence of Víctor Jones MD. Provider Attestation - Scribe documentation All medical record entries made by the Scribe were at my direction and personally dictated by me. Ihave reviewed the chart and agree that the record accurately reflects my personal performance of the history, physical exam, discussion and plan. documented in this encounter Plan of Treatment Upcoming Encounters Date Type Department Care Team (Late st Contact Info) Description 04/08/2025 10:45 AM EDT Appointment [address] [address] 10/11/2025 10:10 AM EST Office Visit [address] [address] Víctor Jones MD [address] [place] [address] 2, [address] [address] Scheduled Orders Name Type Priority Associated Diagnoses Orde r Schedule Alanine Aminotransferase Lab Routine Coronary artery disease, unspecified vessel or lesion type, unspecified whether angina present, unspecified whether [place] or transplanted heart Hyperlipidemia, unspecified hyperlipidemia type Expected: 02/24/2025 (Approximate), Expires: 02/24/2026 Aspartate Aminotransferase Lab Routine Coronary artery disease, unspecified vessel or lesion type, unspecified whether angina present, unspecified whether [place] or transplanted heart Hyperlipidemia, unspecified hyperlipidemia type Expected: 02/24/2025 (Approximate), Expires: 02/24/2026 Basic Metabolic Panel Lab Routine Coronary artery disease, unspecified vessel or lesion type, unspecified whether angina present, unspecified whether [place] or transplanted heart Paroxysmal atrial fibrillation (Multi) Expected: 02/24/2025 (Approximate), Expires: 02/24/2026 CBC Lab Routine Coronary artery disease, unspecified vessel or lesion type, unspecified whether angina present, unspecified whether [place] or transplanted heart Paroxysmal atrial fibrillation (Multi) Expected: 02/24/2025 (Approximate), Expires: 02/24/2026 Lipid Panel Lab Routine Coronary artery disease, unspecified vessel or lesion type, unspecified whether angina present, unspecified whether [place] or transplanted heart Hyperlipidemia, unspecified hyperlipidemia type Expected: 02/24/2025 (Approximate), Expires: 02/24/2026 Transthoracic Echo Limited Echocardiography Routine Coronary artery disease, unspecified vessel or lesion type, unspecified whether angina present, unspecified whether [place] or transplanted heart Aortic valve insufficiency, etiology of cardiac valve disease unspecified Expected: 02/24/2025 (Approximate), Expires: 02/24/2027 documented as of this encounter Visit Diagnoses Diagnosis Coronary artery disease, unspecified vessel or lesion type, unspecified whether angina present, unspecified whether [place] or transplanted heart- Primary Paroxysmal atrial fibrillation (Multi) Atrial fibrillation High risk medication use Hyperlipidemia, unspecified hyperlipidemia type Diastolic dysfunction Unspecified heart disease Aortic valve insufficiency, etiology of cardiac valve disease unspecified Mitral valve insufficiency, unspecified etiology Mixed hyperlipidemia History of PTCA Postsurgical percutaneous transluminal coronary angioplasty status BMI 31.0-31.9,adult Former smoker Personal history of tobacco use, presenting hazards to health Obesity, Class I, BMI 30-34.9 documented in this encounter Additional Health Concerns Assessment Noted Time A fall risk assessment has been complete d for the patient 07/16/2024 2:47 PM EST documented as of this encounter Care Teams Pin Machine Operator Relationship Specialty Start Date End Date Demarco Grvaes MD [facility] [place] [address] PCP - General Family Medicine 01/12/24 documented as of this encounter
--- OUTSIDE RECORDS SUMMARY | 2025-02-28 08:18 | XMS_ITS | Encounter Summary ---
Author Organization [facility] Address [address] [place] [address] Phone Care Team Providers Care Payroll Tax Analyst Name Role Phone Demarco Graves MD Primary Care Provider [phone] Encounter Details Date Type Department Care Team (Latest Contact Info) Description 02/24/2025 Travel Social History Tobacco Use Types Packs/Day Years Used Date Smoking Tobacco: Former Cigarettes S tarted: 1993 Smokeless Tobacco: Never Alcohol Use Standard Drinks/Week Comments Never 0 (1 standard drink = 0.6 oz pur e alcohol) Comments Unknown Sex and Gender Information Value Date Recorded Sex Assigned at Not on file Legal Sex Female 5:39 AM EST Gender Identity Not on file Sexual Orientation Not on file documented as of this encounter Plan of Treatment Upcoming Encounters Date Type Department Care Team (Late st Contact Info) Description 04/08/2025 10:45 AM EDT Appointment [address] [place] [id number] 10/11/2025 10:10 AM EST Office Visit [address] [place] [address] Víctor Jones MD [address] [facility] 2, [address] [place] [address] documented as of this encounter Visit Diagnoses Not on filedocumented in this encounter Additional Health Concerns Assessment Noted Time A fall risk assessment has been complete d for the patient 07/16/2024 2:47 PM EST documented as of this encounter Care Teams Payroll Tax Analyst Relationship Specialty Start Date End Date Demarco Graves MD [address] [place] [address] PCP - General Family Medicine 01/12/24 documented as of this encounter
--- OUTSIDE RECORDS SUMMARY | 2025-02-28 08:18 | XMS_ITS | Encounter Summary ---
Author Organization [facility] Address [address] [place] [address] Care Team Providers Care Senior Merchandiser Name Role Phone Ashanti Meyer MD Unavailable Vasyl Covarrubias MD Unavailable [phone] Demarco Graves MD Primary Care Provider + Mily Whiting [facility] Unavailable [phone] Vasyl Covarrubias MD Unavailable [phone] Source Comments In the event this information is protected by the Federal Confidentiality of Alcohol and Drug AbusePatient Records regulations: The Federal rules restrict any use of the information to criminally investigate or prosecute any alcohol or drug abuse patient.[facility] Encounter Details Date Type Department Care Team (Late st Contact Info) Description 11/13/2023 Patient Msg Cardiothoracic [address] [place] [address] Provider, Cczohaib IMPORTANT Cardiac Surgery Information Social History Tobacco Use Types Packs/Day Years Used Date Smoking Tobacco: Former Cigarettes 0.7 4 0 04/28/1986 - 04/28/1990 Smokeless Tobacco: Former Alcohol Use Standard Drinks/Week Comments No 0 (1 standard drink = 0.6 oz pur e alcohol) [facility] Utilities Answer Date Recorded In the past 12 months has th e electric, gas, oil, or water company threatened to shut off services in your home? No 11/05/2023 Hunger Vital Sign Answer Date Recorded Within the past 12 months, y ou worried that your food would run out before you got the money to buy more. Never true 11/05/19 24 Within the past 12 months, t he food you bought just didn't last and you didn't have money to get more. Never true 11/05/2023 PRAPARE - Transportation Answer Date Re corded In the past 12 months, has l ack of transportation kept you from medical appointments or from getting medications? No 10/10 In the past 12 months, has l ack of transportation kept you from meetings, work, or from getting things needed for daily living? No 11/05/2023 Housing Stability Vital Sign Answer Braydon e Recorded In the last 12 months, was t here a time when you were not able to pay the mortgage or rent on time? No 11/05/2023 Number of Places Lived in the Last Year Not on f ile 11/05/2023 In the last 12 months, was t here a time when you did not have a steady place to sleep or slept in a [place] (including now)? No 11/05/2023 Area Deprivation Index Answer Date Pb rded National Score (1-100), lower number is lower ri sk 80 10/27/2023 State Score (1-10), lower number is lower risk 7 10/27/2023 Data from: https://www.neighborhoodatlas.medicine.[facility].edu/. Last address used for calculation [address] 10/27/2023 Comments No Sex and Gender Information Value Date Recorded Sex Assigned at Not on file Legal Sex Female 10:17 AM EST Gender Identity Not on file Sexual Orientation Not on file documented as of this encounter Functional Status * Are you deaf or do you have serious difficulty hearing? Answer Date of Assessment Author No 11/06/2023 11:53 AM Lizzy Lal RN * Are you blind or do you have serious difficulty seeing, even when wearing glasses? Answer Date of Assessment Author No 11/06/2023 11:53 AM Lizzy Lal RN * Do you have serious difficulty walking or climbing stairs? Answer Date of Assessment Author No 11/06/2023 11:53 AM EDLizzy Alcaraz RN * Do you have difficulty dressing or bathing? Answer Date of Assessment Author No 11/06/2023 11:53 AM Lizzy Lal RN * Because of a physical, mental, or emotional condition, do you have difficulty doing errands alone such as visiting a doctor's office or shopping? Answer Date of Assessment Author No 11/06/2023 11:53 AM Lizzy Lal RN documented as of this encounter Mental Status * Because of a physical, mental, or emotional condition, do you have serious difficulty concentrating, remembering, or making decisions? Answer Entry Date Author No 11/06/2023 11:53 AM Lizzy Lal RN documented in this encounter Plan of Treatment Not on file documented as of this encounter Visit Diagnoses Not on filedocumented in this encounter Care Teams Senior Merchandiser Relationship Specialty Start Date End Date Demarco Graves MD [address] [place] [address] PCP - General Family Medicine 10/31/23 Ashanti Meyer MD [address] [place] [address] Surgeon Cardiac Surg 10/31/23 [place] [address] [place] [address] [facility]age Tender Cardiology 10/31/23 Mily Whiting RP [address] [place] [address] Transitional Care Pharmacist Pharmacy 12/04/23 01/02/24 [place] [address] [place] [address] [facility] Cardiology 12/23/23 12/23/23 documented as of this encounter
--- OUTSIDE RECORDS SUMMARY | 2025-02-28 08:18 | XMS_ITS | Encounter Summary ---
Author Organization [facility] Address [address] [place] [address] Care Team Providers Care Mill House Supervisor Name Role Phone Demarco Graves MD Primary Care Provider [phone] Reason for Visit * Reason Comments Med Refill Encounter Details Date Type Department Care Team (Late st Contact Info) Description 07/15/2022 Refill [facility] [address] [place] [address] Edwin Doran MD [address] [facility] [address] [facility] [place] [address] Essential (primary) hypertension Social History Tobacco Use Types Packs/Day Years Used Date Smoking Tobacco: Former Cigarettes Q uit: 1989 Smokeless Tobacco: Never Alcohol Use Standard Drinks/Week Comments Yes 0 (1 standard drink = 0.6 oz pur e alcohol) occasional Comments Unknown Sex and Gender Information Value Date Recorded Sex Assigned at Not on file Legal Sex Female 10:05 PM EDT Gender Identity Not on file Sexual Orientation Not on file COVID-19 Exposure Response Date Recorded In the last 10 days, have yo u been in contact with someone who was confirmed or suspected to have Coronavirus/COVID-19? No / Unsure 07/01/2022 9:38 AM EST documented as of this encounter Miscellaneous Notes * Telephone Encounter - Ludy Xiong - 07/15/2022 1:33 PM EST Approving, but needs appt for additional refills. documented in this encounter Plan of Treatment Not on file documented as of this encounter Visit Diagnoses Diagnosis Essential (primary) hypertension Unspecified essential hypertension documented in this encounter Care Teams Mill House Supervisor Relationship Specialty Start Date End Date Demarco Graves [facility] [address] [facility] [place] [address] PCP - General 04/21/22 documented as of this encounter
--- OUTSIDE RECORDS SUMMARY | 2025-02-28 08:18 | XMS_ITS | Encounter Summary ---
Author Organization [facility] Address [address] [place] [address] Care Team Providers Care Lockstitch Coat Joiner Name Role Phone Ashanti Meyer MD Unavailable Vasyl Covarrubias MD Unavailable [phone] Demarco Graves MD Primary Care Provider [phone] Source Comments In the event this information is protected by the Federal Confidentiality of Alcohol and Drug AbusePatient Records regulations: The Federal rules restrict any use of the information to criminally investigate or prosecute any alcohol or drug abuse patient.[facility] Encounter Details Date Type Department Care Team (Late st Contact Info) Description 01/12/2024 Patient [facility] -[address] [place] [address] Adry Harper RPh Medication Refill Past Due Social History Tobacco Use Types Packs/Day Years Used Date Smoking Tobacco: Former Cigarettes 0.7 4 0 04/28/1986 - 04/28/1990 Smokeless Tobacco: Never Alcohol Use Standard Drinks/Week Comments No 0 (1 standard drink = 0.6 oz pur e alcohol) [facility] Utilities Answer Date Recorded In the past 12 months has e electric, gas, oil, or water company threatened to shut off services in your home? No 11/28/2023 Hunger Vital Sign Answer Date Recorded Within the past 12 months, y ou worried that your food would run out before you got the money to buy more. Never true 11/28/19 24 Within the past 12 months, t he food you bought just didn't last and you didn't have money to get more. Never true 11/28/2023 PRAPARE - Transportation Answer Date Re corded In the past 12 months, has l ack of transportation kept you from medical appointments or from getting medications? No 11/09 In the past 12 months, has l ack of transportation kept you from meetings, work, or from getting things needed for daily living? No 11/28/2023 Housing Stability Vital Sign Answer Braydon e Recorded In the last 12 months, was t here a time when you were not able to pay the mortgage or rent on time? No 11/28/2023 In the last 12 months, how many places have you lived? 1 11/28/2023 In the last 12 months, was t here a time when you did not have a steady place to sleep or slept in a halfway (including now)? No 11/28/2023 Area Deprivation Index Answer Date Pb rded National Score (1-100), lower number is lower ri sk 80 12/03/2023 State Score (1-10), lower number is lower risk 7 12/03/2023 Data from: https://www.neighborhoodatlas.medicine.[facility].edu/. Last address used for calculation [address] 12/03/2023 Comments No Sex and Gender Information Value Date Recorded Sex Assigned at Not on file Legal Sex Female 10:17 AM EST Gender Identity Not on file Sexual Orientation Not on file documented as of this encounter Functional Status * Are you deaf or do you have serious difficulty hearing? Answer Date of Assessment Author No 12/03/2023 3:49 PM Tonya Johnson RN * Are you blind or do you have serious difficulty seeing, even when wearing glasses? Answer Date of Assessment Author No 12/03/2023 3:49 PM Tonya Johnson RN * Do you have serious difficulty walking or climbing stairs? Answer Date of Assessment Author No 12/03/2023 3:49 PM EDT Tonya James RN * Do you have difficulty dressing or bathing? Answer Date of Assessment Author No 12/03/2023 3:49 PM EDT Tonya James RN * Because of a physical, mental, or emotional condition, do you have difficulty doing errands alone such as visiting a doctor's office or shopping? Answer Date of Assessment Author No 12/03/2023 3:49 PM EDT Tonya James RN documented as of this encounter Mental Status * Because of a physical, mental, or emotional condition, do you have serious difficulty concentrating, remembering, or making decisions? Answer Entry Date Author No 12/03/2023 3:49 PM EDT Tonya James RN documented in this encounter Plan of Treatment Not on file documented as of this encounter Goals Goal Patient Goal Type Associated Problems Recent Progress Patient-Stated? Author Blood Pressure < 130/80 Blood Pressure 126/74(2023 10:13 AM EDT) Cece Beltran RN documented as of this encounter Visit Diagnoses Not on filedocumented in this encounter Care Teams Lockstitch Coat Joiner Relationship Specialty Start Date End Date Demarco Graves MD [address] [place] [address] PCP - General Family Medicine 10/31/23 Ashanti Meyer MD [address] [place] [address] Surgeon Cardiac Surg 10/31/23 [place] [address] [place] [address] Rivet Tosser Cardiology 10/31/23 documented as of this encounter
--- OUTSIDE RECORDS SUMMARY | 2025-02-28 08:18 | XMS_ITS | Clinical Summary ---
Author Organization [facility] Address [address] [place] [address] Phone Care Team Providers Care Accounting Analyst Name Role Phone Demarco Graves MD Primary Care Provider [phone] Allergies Active Allergy Reactions Criticality Noted Date Comments Rodney Inhibitors Hives Medium 01/12/2024 Amiodarone GI Upset 07/16/2024 Amlodipine Swelling Low 01/12/2024 Diltiazem Shortness of breath High 01/12/2024 Apixaban GI bleeding 07/16/2024 Gabapentin Other Medium 01/12/2024 Memory and speech problem Metoprolol Other Medium 01/12/2024 Circulation problem Morphine GI Upset Medium 01/12/2024 Potassium GI Upset 07/16/2024 Medications hydrALAZINE (Apresoline) 25 mg tablet Take 1 tablet (25 mg) by mouth 2 times a day. Active isosorbide mononitrate ER (Imdur) 30 mg 24 hr tablet Take 1 tablet (30 mg) by mouth once daily. Do not crush or chew. Active atorvastatin (Lipitor) 40 mg tablet Take 1 tablet (40 mg) by mouth once daily. Active liothyronine (Cytomel) 5 mcg tablet Take 1 tablet (5 mcg) by mouth once daily. Active pantoprazole (ProtoNix) 40 mg EC tablet Take 1 tablet (40 mg) by mouth once daily in the morning. Take before meals. Do not crush, chew, or split. Active vit C/E/zinc/lutein/ zeaxanthin (OCUVITE EYE HEALTH ORAL) Take 1 capsule by mouth once daily. Active clopidogrel (Plavix) 75 mg tabletIndication s:Coronary artery disease, unspecified vessel or lesion type, unspecified whether angina present, unspecified whether emmonak or transplanted heart Take 1 tablet (75 mg) by mouth once daily. 90 tablet 3 4 07/16/20 25 Active warfarin (Coumadin) 5 mg tablet Take 1 tablet (5 mg) by mouth. Take as directed by [facility] Active nebivolol (Bystolic) 5 mg tablet Take 1 tablet (5 mg) by mouth once daily. Active doxepin (SINEquan) 10 mg capsule Take 1 capsule (10 mg) by mouth once daily at bedtime. 5 Active loperamide (Imodium) 2 mg capsule Take 1 capsule (2 mg) by mouth 3 times a day as needed for diarrhea. 3 Active multivitamin tablet Take 1 tablet by mouth once daily. Active furosemide (Lasix) 40 mg tabletIndication s:Diastolic dysfunction,Paro xysmal atrial fibrillation (Multi) Take 1 tablet (40 mg) by mouth once daily. 90 tablet 3 5 11/03/19 26 Active albuterol 90 mcg/actuation inhaler Inhale 2 puffs every 6 hours if needed for wheezing. Active medical cannabis Take by mouth. cream Active potassium chloride ER (Micro-K) 10 mEq ER capsuleIndicatio ns:Paroxysmal atrial fibrillation (Multi),High risk medication use Take 1 capsule (10 mEq) by mouth once daily. Do not crush or chew. 90 capsule 3 5 02/25/20 26 Active potassium chloride CR 10 mEq ER tablet Take 1 tablet (10 mEq) by mouth once daily. 4 02/25/20 25 Discontinu ed(Therapy completed) Active Problems Problem Noted Date Diagnosed Date Mixed hyperlipidemia 07/16/2024 High risk medication use 01/12/2024 CAD (coronary artery disease) 01/12/2024 Paroxysmal atrial fibrillation (Multi) 4 History of PTCA 01/12/2024 Hyperlipidemia 01/12/2024 Diastolic dysfunction 01/12/2024 Aortic regurgitation 01/12/2024 Mitral valve regurgitation 01/12/2024 CKD (chronic kidney disease) stage 3, GFR 30-59 ml/min (Multi) 01/12/2024 BMI 31.0-31.9,adult 01/12/2024 Former smoker 01/12/2024 Encounters Date Type Department Care Team Description 02/24/2025 10:20 AM EDT Office Visit [address] [place] [address] Víctor Jones MD Coronary artery disease, unspecified vessel or lesion type, unspecified whether angina present, unspecified whether emmonak or transplanted heart (Primary Dx); Paroxysmal atrial fibrillation (Multi); High risk medication use; Hyperlipidemia, unspecified hyperlipidemia type; Diastolic dysfunction; Aortic valve insufficiency, etiology of cardiac valve disease unspecified; Mitral valve insufficiency, unspecified etiology; Mixed hyperlipidemia; History of PTCA; BMI 31.0-31.9,adult; Former smoker; Obesity, Class I, BMI 30-34.9 02/24/2025 Travel 12/22/[address] [facility] [address] [employer] [place] [address] Scanning, Generic Provider from Last 3 Months Family History Medical History Relation Name Comments No Known Problems Brother Heart disease Father Ovarian cancer Mother Relation Name Status Comments Brother Father Mother Social History Tobacco Use Types Packs/Day Years [...] on file Sexual Orientation Not on file Last Filed Vital Signs Vital Sign Reading [...] Mass Index 31.11 02/24/2025 10:30 AM EDT Plan of Treatment Upcoming Encounters Date Type Department Care Team (Late st Contact Info) Description 04/08/2025 10:45 AM EDT Appointment [place] [address] [facility] [address] [place] [phone] 10/11/2025 10:10 AM EST Office Visit [facility] [address] [facility] [address] [place] [phone] Víctor Jones MD [address] [facility] [address] [place] [address] Health Maintenance Due Date Last Done Comments Bone Density Scan 1946 Creatinine Level 1946 Echocardiogram 1946 Lipid Panel 1945 Medicare Annual Wellness Visit (AWV) 1945 Potassium Level 1946 Diabetes Screening 01/22/1964 Hepatitis C Screening 01/22/1964 CKD: Urine Protein Screening 1965 DTaP/Tdap/Td Vaccines (1 - Tdap) 01/22/1968 Zoster Vaccines (1 of 2) 01/22/1996 RSV High Risk: (Elderly (60+) or Population) (1 - 1-dose 75+ series) 2021 COVID-19 Vaccine (4 - season) 2024 03/08/2022, 10/02/2020, 09/11/2020 Pneumococcal Vaccine (2 of 2 - PCV) 06/20/2024 06/20/2023, 05/28/2017, 05/30/2012 TSH Level 10/25/2024 10/26/2023 Influenza Vaccine (#1) 2025 3, 07/24/2020, 05/28/2017, Additional history exists HIB Vaccines Aged Out No longer eligi ble based on patient's age to complete this topic HPV Vaccines Aged Out No longer eligi ble based on patient's age to complete this topic Hepatitis A Vaccines Aged Out No long er eligible based on patient's age to complete this topic Hepatitis B Vaccines Aged Out No long er eligible based on patient's age to complete this topic IPV Vaccines Aged Out No longer eligi ble based on patient's age to complete this topic Meningococcal Vaccine Aged Out No anselmo jack eligible based on patient's age to complete this topic Rotavirus Vaccines Aged Out No longer eligible based on patient's age to complete this topic Procedures Procedure Name Priority Date/Time Associated Diagnosis Comments OUTSIDE LAB SCAN 12/22/2024 from Last 3 Months Results * OUTSIDE LAB SCAN (12/22/2024) Narrative 12/22/2024 Ordered by an unspecified provider. Generic Provider Scanning OUTSIDE SCAN Final Result from Last 3 Months Insurance MEDICARE PART A AND B [facility] MEDICARE SUPPLEMENT MEDICARE PART A AND B [employer] MEDICARE SUPPLEMENT Care Teams Accounting Analyst Relationship Specialty Start Date End Date Demarco Graves MD [address] [place] [address] PCP - General Family Medicine 01/12/24
--- OUTSIDE RECORDS SUMMARY | 2025-02-28 08:18 | XMS_ITS | Encounter Summary ---
Author Organization [facility] Address [address] [place] [address] Care Team Providers Care Switchboard Installer Name Role Phone Ashanti Meyer MD Unavailable Vasyl Covarrubias MD Unavailable [phone] Demarco Graves MD Primary Care Provider [phone] Mily Whiting [facility] Unavailable [phone] Vasyl Covarrubias MD Unavailable [phone] Source Comments In the event this information is protected by the Federal Confidentiality of Alcohol and Drug AbusePatient Records regulations: The Federal rules restrict any use of the information to criminally investigate or prosecute any alcohol or drug abuse patient.[facility] Encounter Details Date Type Department Care Team (Latest Contact Info) Description 11/28/2023 [place] [address] Provider, Ccf Please complete Cardiovascular Surgery Questionnaire Social History Tobacco Use Types Packs/Day Years Used Date Smoking Tobacco: Former Cigarettes 0.7 4 0 04/28/1986 - 04/28/1990 Smokeless Tobacco: Never Alcohol Use Standard Drinks/Week Comments No 0 (1 standard drink = 0.6 oz pur e alcohol) [facility] Utilities Answer Date Recorded In the past 12 months has [employer], gas, oil, or water company threatened to [...] place to sleep or slept in a long-term (including now)? No 11/28/2023 Area Deprivation Index Answer Date Pb rded National Score (1-100), lower number is lower ri sk 80 10/27/2023 State Score (1-10), lower number is lower risk 7 10/27/2023 Data from: https://www.neighborhoodatlas.medicine.[facility].edu/. Last address used for calculation [address] [facility] 10/27/2023 Comments No Sex and Gender Information [...] Lizzy Lal RN * Do you have difficulty dressing [...] on filedocumented in this encounter Care Teams Switchboard Installer Relationship Specialty Start Date End Date Demarco Graves MD [address] [place], [place] [id number] PCP - General Family Medicine 10/31/23 Ashanti Meyer MD [address] [place] [address] Surgeon Cardiac Surg 10/31/23 [place] [address] [place] [id number] Burring Wheel Operator Cardiology 10/31/23 Mily Whiting [facility] [address] [place] [address] Transitional Care Pharmacist Pharmacy 12/04/23 01/02/24 [place] [address] [place] [address] Burring Wheel Operator Cardiology 12/23/23 12/23/23 documented as of this encounter
--- OUTSIDE RECORDS SUMMARY | 2025-02-28 08:18 | XMS_ITS | Encounter Summary ---
Author Organization [facility] Address [address] [place] [address] Care Team Providers Care Product Development Coordinator Name Role Phone Ashanti Meyer MD Unavailable Vasyl Covarrubias MD Unavailable [phone] Demarco Graves MD Primary Care Provider + Mily Whiting [facility] Unavailable [phone] Vasyl Covarrubias MD Unavailable [phone] Source Comments In the event this information is protected by the Federal Confidentiality of Alcohol and Drug AbusePatient Records regulations: The Federal rules restrict any use of the information to criminally investigate or prosecute any alcohol or drug abuse patient.[facility] Encounter Details Date Type Department Care Team (Late st Contact Info) Description 11/11/2023 Patient Msg Cardiothoracic [address] [place] [address] Provider, Ccf Please complete your Cardiac Surgery Education Social History Tobacco Use Types Packs/Day Years Used Date Smoking Tobacco: Former Cigarettes 0.7 4 0 04/28/1986 - 04/28/1990 Smokeless Tobacco: Former Alcohol Use Standard Drinks/Week Comments No 0 (1 standard drink = 0.6 oz pur e alcohol) [facility] Utilities Answer Date Recorded [...] slept in a halfway (including now)? No 11/05/2023 Area Deprivation Index Answer Date Pb rded National Score (1-100), lower number is lower ri sk 80 10/27/2023 State Score (1-10), lower number is lower risk 7 10/27/2023 Data from: https://www.neighborhoodatlas.medicine.[facility].edu/. Last address used for calculation [address] 10/27/2023 Comments No Sex and Gender Information Value Date Recorded Sex Assigned at Not on file Legal Sex Female 10:17 AM EST Gender Identity Not on file Sexual Orientation Not on file documented as of this encounter Functional Status * Are you deaf or do you have serious difficulty hearing? Answer Date of Assessment Author No 11/06/2023 11:53 AM Lizzy aLl RN * Are you blind or do [...] on filedocumented in this encounter Care Teams Product Development Coordinator Relationship Specialty Start Date End Date Demarco Graves MD [address] [place] [address] PCP - General Family Medicine 10/31/23 Ashanti Meyer MD [address] [place] [address] Surgeon Cardiac Surg 10/31/23 [place] [address] [place] [address] Rehabilitation Assistant Cardiology 10/31/23 Mily Whiting RPh [address] [place] [address] Transitional Care Pharmacist Pharmacy 12/04/23 01/02/24 [place] [address] [place] [phone] Rehabilitation Assistant Cardiology 12/23/23 12/23/23 documented as of this encounter
--- OUTSIDE RECORDS SUMMARY | 2025-02-28 08:18 | XMS_ITS | Encounter Summary ---
Author Organization [facility] Address [address] [place] [address] Care Team Providers Care Mortgage Loan Assistant Name Role Phone Ashanti Meyer MD Unavailable Vasyl Covarrubias MD Unavailable [phone] Demarco Graves MD Primary Care Provider [phone] Mily Whiting [facility] Unavailable [phone] Vasyl Covarrubias MD Unavailable [phone] Source Comments In the event this information is protected by the Federal Confidentiality of Alcohol and Drug AbusePatient Records regulations: The Federal rules restrict any use of the information to criminally investigate or prosecute any alcohol or drug abuse patient.[facility] Encounter Details Date Type Department Care Team (Late st Contact Info) Description 11/28/2023 Patient Msg Cardiology [address] [place] [address] Provider, Ccf Welcome to [facility] [place] - Your upcoming valve surgery Social History Tobacco Use Types Packs/Day Years Used Date Smoking Tobacco: Former Cigarettes 0.7 4 0 04/28/1986 - 04/28/1990 Smokeless Tobacco: Never Alcohol Use Standard Drinks/Week Comments No 0 (1 standard drink = 0.6 oz pur e alcohol) [facility] Utilities Answer Date Recorded In the [...] place to sleep or slept in a jail (including now)? No 11/28/2023 Area Deprivation Index Answer Date Pb rded National Score (1-100), lower number is lower ri sk 80 10/27/2023 State Score (1-10), lower number is lower risk 7 10/27/2023 Data from: https://www.neighborhoodatlas.medicine.[facility].edu/. Last address used for calculation [address] [facility] 10/27/2023 Comments No Sex and Gender [...] on filedocumented in this encounter Care Teams Mortgage Loan Assistant Relationship Specialty Start Date End Date Demarco Graves MD [address] [place] [address] PCP - General Family Medicine 10/31/23 Ashanti Meyer MD [address] [place] [address] Surgeon Cardiac Surg 10/31/23 [place] [address] [place] [phone] Chemical Plant Operator Cardiology 10/31/23 Mily Whiting [facility] [address] [place] [phone] Transitional Care Pharmacist Pharmacy 12/04/23 01/02/24 [place] [address] [place] [phone] Chemical Plant Operator Cardiology 12/23/23 12/23/23 documented as of this encounter
--- OUTSIDE RECORDS SUMMARY | 2025-02-28 08:18 | XMS_ITS | Encounter Summary ---
Author Organization [facility] Address [address] [place] [address] Care Team Providers Care Business Taxes Specialist Name Role Phone Demarco Graves MD Primary Care Provider [phone] Reason for Visit * Reason Comments Med Refill Encounter Details Date Type Department Care Team (Late st Contact Info) Description 02/27/2023 Refill [facility] Heart at [facility] [address] [place] [address] Edwin Doran MD [address] [facility] [address] [facility] [place] [phone] Pulmonary hypertension (CMS/HCC) Social History Tobacco Use Types Packs/Day Years [...] as of this encounter Plan of Treatment Not on file documented as of this encounter Visit Diagnoses Diagnosis Pulmonary hypertension (CMS/HCC) Other chronic pulmonary heart diseases documented in this encounter Care Teams Business Taxes Specialist Relationship Specialty Start Date End Date Demarco Graves MD [address] [facility] [address] [address] PCP - General 04/21/22 documented as of this encounter
--- OUTSIDE RECORDS SUMMARY | 2025-02-28 08:18 | XMS_ITS | Encounter Summary ---
Author Organization [facility] Address [address] [place] [address] Care Team Providers Care Medical Record Administrator Name Role Phone Demarco Graves MD Primary Care Provider [phone] Reason for Visit * Reason Comments Med Refill Encounter Details Date Type Department Care Team (Late st Contact Info) Description 11/01/2022 Refill [facility] Heart at [facility] [address] [place] [address] Edwin Doran MD [address] [facility] [address] [facility] [place] [phone] Essential (primary) hypertension Social History Tobacco Use [...] hypertension documented in this encounter Care Teams Medical Record Administrator Relationship Specialty Start Date End Date Demarco Graves MD [address] [facility] [address] [address] PCP - General 04/21/22 documented as of this encounter
--- OUTSIDE RECORDS SUMMARY | 2025-02-28 08:18 | XMS_ITS | Clinical Summary ---
Author Organization [facility] Address [address], [address] [place] [address] Care Team Providers Care Manager Paid Name Role Phone Demarco Graves MD Primary Care Provider [phone] Allergies Active Allergy Reactions Criticality Noted Date Comments Rodney Inhibitors Hives 08/19/2017 Hives with itching Codeine Nausea And Vomiting Low 08/19/2017 Morphine Nausea And Vomiting Low 08/19/2017 Gabapentin 05/25/2019 STRANGE THINKING, UNABLE TO THINK CORRECTLY Medications amLODIPine (NORVASC) 5 MG tablet Take 5 mg by mouth daily 10/23/2017 Active FLUoxetine (PROZAC) 20 MG capsule Take 20 mg by mouth daily 08/30/2017 Active losartan (COZAAR) 50 MG tablet Take 50 mg by mouth every morning Active pantoprazole (PROTONIX) 20 MG tablet Take 40 mg by mouth daily Active Naproxen Sodium (ALEVE PO) Take by mouth daily Active Multiple Vitamins-Minera ls (CENTRUM) TABS Take by mouth daily Active losartan (COZAAR) 25 MG tablet Take 25 mg by mouth every evening Active Krill Oil (MAXIMUM RED KRILL) 300 MG CAPS Take by mouth daily Active Multiple Vitamins-Minera ls (EYE VITAMINS PO) Take by mouth daily Active Coenzyme Q10 10 MG CAPS Take by mouth daily Active Active Problems Problem Noted Date Diagnosed Date Gait abnormality 02/24/2019 Abnormality of gait and mobi lity due to Impaired Mobility secondary to Lumbar Spondylosis s/p L3-4, L4-5 PLIF. [facility] admit 02/24/19. 02/24/2019 Overview (02/24/2019): This is a 74 year old female with a significant past medical history of lumbar disc herniation, DDD, spondylosis, and facet arthropathy with significant low back pain that radiates to the left buttock. Pain had been so severe she cannot sit, stand, or walk. Pain management injections has failed to provide pain relief. She agreed to have surgery. XR Spine 02/23/19 revealed scoliosis and angular of lumbar Lordosis/Thoracic Kyphosis. She had L3-L4, L4-L5 Posterior Interbody Fusion on 02/23/19. The patient has been found to have severe abnormality of gait and mobility with impaired self care due to Impaired Mobility secondary to Lumbar Spondylosis s/p L3-L4, L4-L5 PLIF and is admitted to the acute inpatient rehab program. Transcribed from pre-admission information sheet completed by Kelley Aaron RN/mdl as directed by Dr. Cathie Reed. 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) Allergies that may influence a procedure: No Medications that may influence a procedure: No PMSH that may influence a procedure: GERD Hypertension Hyperlipidemia Psychosocial factors (depression, stress, life events) Diagnostic Tests: WBC (k/uL) Date Value 05/30/2012 8.60 RBC (m/uL) Date Value 05/30/2012 3.49* HEMOGLOBIN (g/dL) Date Value 05/30/2012 11.0* HEMATOCRIT (%) Date Value 05/30/2012 32.4* MCV (fL) Date Value 05/30/2012 92.8 MCH (pG) Date Value 05/30/2012 31.6 MCHC (g/dL) Date Value 05/30/2012 34.0 RDW-CV (%) Date Value 05/30/2012 13.1 PLATELET COUNT (k/uL) Date Value 05/30/2012 179 MPV (fL) Date Value 05/30/2012 8.7 GLUCOSE (mg/dL) Date Value 05/28/2012 150* BUN (mg/dL) Date Value 05/28/2012 21 CREATININE (mg/dL) Date Value 05/28/2012 0.97 SODIUM (mmol/L) Date Value 05/28/2012 132 POTASSIUM (mmol/L) Date Value 05/28/2012 3.8 CHLORIDE (mmol/L) Date Value 05/28/2012 97* CO2 (mmol/L) Date Value 05/28/2012 25 CALCIUM (mg/dL) Date Value 05/28/2012 9.0 Imaging: X 2014 Lumbar spine Xray: Imaging independendently viewed, agree with report. Salient finding: Partially lumbarized 1st sacral segment (fused on the right side, not fused on the left), minimal disc space narrowing X 2016 Lumbar spine MRI: Imaging independendently viewed, agree with report. Salient finding: L3-4 moderate disc space narrowing and desiccation, mild diffuse disc bulge with 3mm left foraminal disc herniaton of the protrusion type. No central or foraminal stenosis. L4-5 disc desiccation, posteiror central subligamentous disc herniation extending inferiorly up to 5mm posteriorly up to 3mm. No central or foraminal narrowing. L5-S1 no significant disc/ facet abnormality/ spinal or foraminal narrowing. X 06/20/16 Pelvis MRI: Imaging independendently viewed, agree with report. Salient finding: Hip joints: Within normal limits. Lack of joint fluid limits evaluation of labrum and cartilage. Sacroiliac joints: The sacroiliac joints are within normal limits. There is transitional morphology of the right L5 transverse process with pseudoarthrosis with the sacrum. There are mild degenerative changes at the pseudoarthrosis without increased T2 signal. Pubic symphysis: Within normal limits. Tendons: Within normal limits including the iliopsoas, hamstring, gluteal and rectus femoris tendons. Muscles: Within normal limits. Bone Marrow: Within normal limits. No fractures or marrow replacing lesions. Degenerative disc and facet changes at L4-5. Prior treatments: Physical Therapy: yes (2014) - didn't help Medications tried: ibuprofen, tramadol Procedures: X 10/06/15 lumbar ZACARIAS (40mg depo medrol and 4cc of 0.25% sensorcaine) - no relief X 10/20/15 lumbar ZACARIAS (40mg depo medrol and 4cc of 0.25% sensorcaine) - no relief X 12/08/15 lumbar facet joint injection (depo and sensorcaine) - 2.5 weeks of pain relief Surgeries: no Other: no ASSESSMENT/PLAN Cece Hubbard is a 71 year old female, presenting with low back pain, suspect facet arthropathy at the L4-5, L5-L6. However, her pain is lower down in the sacrum and the MRI does suggest slightly heterogenous bone marrow signal in the sacral spine, would like to evaluate for pelvic visceral etiology vs bone marrow etiology of the symptoms. - Lumbar Spine X-Rays - reviewed - Lumbar Spine MRI - reviewed - Physical therapy with certified [facility] PT ### - Pelvis MRI w/wo contrast - reviewed with the patient, normal study - CBC, CMP, ESR, CRP, SPEP If no relief, - left L4-5, L5-6 facet joint steroid injection If fails to progress, - Spine surgery consultation for open surgical procedure - Discography if it would influence surgical planning - Pain medicine consultation if non-operative care chosen Family History Medical History Relation Name Comments High Blood Pressure Brother x 1 Thyroid Disease Daughter x 1 Heart Attack Father Cancer Mother ovarian cancer Cancer Son x 1 esophageal canc er at age 41 Relation Name Status Comments Brother x 1 Alive Daughter x 1 Alive Father Mother Sister none Son x 1 Social History Tobacco Use Types Packs/Day Years Used Date Smoking Tobacco: Former Cigarettes 1 3 0 02/23/1992 - 02/22/1995 Smokeless Tobacco: Never Alcohol Use Standard Drinks/Week Comments Yes 0 (1 standard drink = 0.6 oz pur e alcohol) rare social Social Connection and Isolat ion Panel [NHANES] Answer Date Recorded Frequency of Communication w ith Friends and Family More than three times a week 03/01/2019 Frequency of Social Gatherin gs with Friends and Family More than three times a week 03/01/2019 Attends Jew Services Not on file 03/01 Active Member of Clubs or Organizations Not on f ile 03/01/2019 Attends Club or Organization Meetings Not on sriram e 03/01/2019 Marital Status 03/01/2019 Exercise Vital Sign Answer Date Recorde d Days of Exercise per Week 0 days 2018 Minutes of Exercise per Session 0 min 03/01/2019 Comments No Sex and Gender Information Value Date Recorded Sex Assigned at Not on file Legal Sex Female 3:59 PM EST Gender Identity Not on file Sexual Orientation Not on file Last Filed Vital Signs Vital Sign Reading Time Taken Comments Blood Pressure 124/84 03/05/2019 7:32 AM EDT Pulse 87 03/05/2019 7:32 AM EDT Temperature 36 C (96.8 F) 05/25/2019 10:41 AM EDT Respiratory Rate 16 03/05/2019 7:32 AM EDT Oxygen Saturation 94% 03/05/2019 7:32 AM EDT Inhaled Oxygen Concentration - - Weight 85.7 kg (189 lb) 05/25/2019 10:41 AM EDT Height 162.6 cm (5' 4 ) 05/25/2019 10:41 AM EDT Body Mass Index 32.44 05/25/2019 10:41 AM EDT Plan of Treatment Not on file Medical Devices Implanted Type Area Clean Room Operator Device Identifier Shelf Expiration Date Model / Serial / Lot Graft Canc Chip 30cc [id number] - [id number] Implanted:Qt y: 1 on 02/23/2019 by Joel Hodges MD at [facility] Bone/Gra ft/Tissu e/Human/ Synth N/A: Spine Lumbar MUSCULOSKELETAL TRANSPLANT FND-PMM 12/21/2021 [id number] / [id number] / Markell-Cellular Bone Matrix 10cc - [id number] Implanted:Qt y: 1 on 02/23/2019 by Joel Hodges MD at [facility] Spine N/A: Spine Lumbar [employer]-PMM 11/10/2022 [id number] / [id number] / Sys Fix Reline 0x Conn 40 50mm 5.5lp Adj Implanted:Qt y: 1 on 02/23/2019 by Joel Hodges MD at [facility] Spine N/A: Spine Lumbar [employer]-PMM [id number] / / Screw Polyaxial Reline-O 2s 6.5x55mm Implanted:Qt y: 6 on 02/23/2019 by Joel Hodges MD at [facility] Spine N/A: Spine Lumbar [employer]-PMM [id number] / / Screw Lk Reline Opn Tulip 5.5mm Implanted:Qt y: 6 on 02/23/2019 by Joel Hodges MD at [facility] Spine N/A: Spine Lumbar [employer]-PMM [id number] / / Coalesce Lumbar Interbody Fusion System Implanted:Qt y: 1 on 02/23/2019 by Joel Hodges MD at [facility] N/A: Spine Lumbar [employer]-PMM 11/10/2019 [id number] / / [id number] Coalesce Lumbar Interbody Fusion System Implanted:Qt y: 1 on 02/23/2019 by Joel Hodges MD at [facility] N/A: Spine Lumbar [employer]-PMM 12/10/2019 [id number] / / [id number] Reline-O Ti Giovanny 5.5 X 65mm Lordotic Implanted:Qt y: 2 on 02/23/2019 by Joel Hodges MD at [facility] N/A: Spine Lumbar [employer]-PMM [id number] / [id number] / Insurance MEDICARE [employer] MEDICARE SUPP MEDICARE [employer] MEDICARE SUPP Advance Directives Documents on File Type Date Recorded Patient Audit Clerk Expl anation ACP-Advance Directive 03/08/2019 5:39 AM * Full Code (Latest Code Status on File) Date Activated Date Inactivated Comments 02/24/2019 3:46 PM 03/05/2019 4:50 PM * Full Code Date Activated Date Inactivated Comments 02/24/2019 3:45 PM 02/24/2019 3:46 PM * Full Code Date Activated Date Inactivated Comments 02/23/2019 4:31 PM 02/24/2019 3:39 PM Care Teams Manager Paid Relationship Specialty Start Date End Date Demarco Graves MD [address] [place] [address] PCP - General Family Medicine 02/17/19
--- OUTSIDE RECORDS SUMMARY | 2025-02-28 08:18 | XMS_ITS | Encounter Summary ---
Author Organization [facility] Address [address] [place] [address] Care Team Providers Care Fulfillment Associate Name Role Phone Ashanti Meyer MD Unavailable Vasyl Covarrubias MD Unavailable [phone] Demarco Graves MD Primary Care Provider [phone] Mily Whiting [facility] Unavailable [phone] Vasyl Covarrubias MD Unavailable [phone] Source Comments In the event this information is protected by the Federal Confidentiality of Alcohol and Drug AbusePatient Records regulations: The Federal rules restrict any use of the information to criminally investigate or prosecute any alcohol or drug abuse patient.[facility] Encounter Details Date Type Department Care Team (Late st Contact Info) Description 11/28/2023 [place] [id number] Provider, [facility] Actionable Imaging Result Notification Patient Outreach Social History Tobacco Use Types Packs/Day Years Used Date Smoking Tobacco: Former Cigarettes 0.7 4 0 04/28/1986 - 04/28/1990 Smokeless Tobacco: Never Alcohol Use Standard Drinks/Week Comments No 0 (1 standard drink = 0.6 oz pur e alcohol) [facility] Utilities Answer Date Recorded In the [...] place to sleep or slept in a usp (including now)? No 11/28/2023 Area Deprivation Index Answer Date Pb rded National Score (1-100), lower number is lower ri sk 80 10/27/2023 State Score (1-10), lower number is lower risk 7 10/27/2023 Data from: https://www.neighborhoodatlas.medicine.[facility].edu/. Last address used for calculation [address] 10/27/2023 Comments No Sex and Gender [...] on filedocumented in this encounter Care Teams Fulfillment Associate Relationship Specialty Start Date End Date Demarco Graves MD [address] [place], [place] [id number] PCP - General Family Medicine 10/31/23 Ashanti Meyer MD [address] [place] [address] Surgeon Cardiac Surg 10/31/23 [place] [address] [place] [id number] Molding Associate Cardiology 10/31/23 Mily Whiting [facility] [address] [place] [address] Transitional Care Pharmacist Pharmacy 12/04/23 01/02/24 [place] [address] [place] [address] Molding Associate Cardiology 12/23/23 12/23/23 documented as of this encounter
--- OUTSIDE RECORDS SUMMARY | 2025-02-28 08:19 | XMS_ITS | Encounter Summary ---
Author Organization [facility] Address [address] [place] [address] Phone Care Team Providers Care Cloth Designer Name Role Phone Demarco Graves MD Primary Care Provider [phone] Encounter Details Date Type Department Care Team (Late st Contact Info) Description 11/17/2024 Scanned Document [facility] [address] [place] [id number] Scanning, Generic Provider Social History Tobacco Use Types Packs/Day Years [...] Description 04/08/2025 10:45 AM EDT Appointment [address] [place] [phone] 10/11/2025 10:10 AM EST Office Visit [address] [place] [phone] Víctor Jones MD [address] [facility] [address] [place] [address] documented as of this encounter Procedures Procedure Name Priority Date/Time Associated Diagnosis Comments OUTSIDE LAB SCAN 11/17/2024 documented in this encounter Results * OUTSIDE LAB SCAN (11/17/2024) Narrative 11/17/2024 Ordered by an unspecified provider. us Generic Provider Scanning OUTSIDE SCAN Final Result documented in this encounter Visit Diagnoses Not on filedocumented in this encounter Additional Health Concerns Assessment Noted Time A fall risk assessment has been complete d for the patient 07/16/2024 2:47 PM EST documented as of this encounter Care Teams Cloth Designer Relationship Specialty Start Date End Date Demarco Graves MD [address] [place] [address] PCP - General Family Medicine 01/12/24 documented as of this encounter
--- OUTSIDE RECORDS SUMMARY | 2025-02-28 08:19 | XMS_ITS | Patient Health Record ---
Author Organization [facility] [place] Address [address] [place] [place] [address] Care Team Providers Care Caustic Room Attendant Name Role Phone Pablo Graves Primary Care Provider Kasisa Camron Unavailable [phone] Stefanie Vidales Unavailable [phone] Allergies Allergen (clinical drug ingredient) Drug/Non Drug Allergy documented on EMR Reaction Allergy Type Onset Date Status gabapentin Gabapentin Cognitive Impairment Drug Allergy Active angiotensin-convert ing enzyme inhibitor (FN) SERINA Inhibitors hives Drug Allergy Active amlodipine Amlodipine Swelling Drug Allergy Activ e diltiazem Diltiazem shortness of breath Drug Allergy Active metoprolol Metoprolol Circulation Issues Drug Allergy Active Results Component Value Reference Range Notes LIPID PROFILE Reviewed date:07/26/2024 02:21:39 PM Interpretation: Performing Lab: Notes/Report: [facility] , Triglycerides 89 <=150 mg/dL Cholesterol 120 <=200 mg/dL HDL Cholesterol 64 40-60 mg/dL > or =60 mg/dl - LOW CARDIOVASCULAR RISK <40 mg/dl - HIGH CARDIOVASCULAR RISK LDL Cholesterol Calculated 39.0 <100 mg/dl OPTIMAL 100-129 mg/dl NEAR OR ABOVE OPTIMAL 130-159 mg/dl BORDERLINE HIGH 160-189 mg/dl HIGH >190 mg/dl VERY HIGH VLDL CHOLESTEROL 17.8 Chol HDL Ratio 1.9 3.3 - 4.4 LOW RISK 4.4 - 7.1 AVERAGE RISK 7.1 - 11.0 MODERATE RISK >11.0 HIGH RISK Performing Lab: see note ML - [facility] LB PROF CHEM 8 (BAS METB) Reviewed date:07/26/2024 02:21:39 PM Interpretation: Performing Lab: Notes/Report: [facility] , Sodium 144 136-145 mmol/L Potassium 4.2 3.5-5.1 mmol/L Chloride 106 98-107 mmol/L Carbon Dioxide 28.3 21.0-32.0 mmol/L Anion Gap 13.9 Glucose 86 74-106 mg/dL Blood Urea Nitrogen 28.0 7.0-18.0 mg/dL Creatinine 1.36 0.55-1.02 mg/dL Estimated GFR ( Linh 46 >=60 mL/min/1.73m 2 Estimated GFR (Non- Colleen 38 >=60 mL/min/1.73m 2 BUN Creatinine Ratio 20.6 Calcium 9.1 8.5-10.1 mg/dL Performing Lab: see note ML - [facility] LB SGOT Reviewed date:07/26/2024 02:21:39 PM Interpretation: Performing Lab: Notes/Report: [facility] , Aspartate Amino Transferase 14 15-37 U/L Performing Lab: see note ML - [facility] LB SGPT Reviewed date:07/26/2024 02:21:39 PM Interpretation: Performing Lab: Notes/Report: [facility] , Alanine Aminotransferase 16 14-59 U/L Performing Lab: see note ML - [facility] LB T4 Reviewed date:08/15/2024 05:48:27 PM Interpretation: Performing Lab: Notes/Report: [facility] , T4 Thyroxine 8.10 4.80-13.90 ug/dL Performing Lab: see note ML - [facility] LB TSH Reviewed date:08/15/2024 05:48:27 PM Interpretation: Performing Lab: Notes/Report: [facility] , Thyroid Stimulating Hormone 2.697 0.358-3.740 uIU/mL Performing Lab: see note ML - [facility] LB Troponin I High Sensitivity Reviewed date:08/15/2024 05:48:27 PM Interpretation: Performing Lab: Notes/Report: [facility] , Troponin I High Sensitivity 116.3 4.0-51.3 pg/mL RESULTS CALLED TO PATITO CASANOVA RN @BY Carmelina Lemus at 0847 CUT-OFF POINTS HAVE BEEN ESTABLISHED BASED ON THE FOURTH UNIVERSAL DEFINITION OF MYOCARDIAL INFARCTION. THE UPPER REFERENCE LIMIT (URL) OF TROPONIN, DEFINED THE 99TH PERCENTILE OF cTnI DISTRIBUTION IN A REFERENCE POPULATION, HAS BEEN CONFIRMED THE DECISION THRESHOLD FOR MD DIAGNOSIS. 99TH PERCENTILE = 51.4 PG/ML NOTE: HIGH-SENSITIVITY TROPONIN ASSAY IS NOT INTENDED TO BE USED IN ISOLATION BUT SHOULD BE INTERPRETED IN CONJUNCTION WITH OTHER DIAGNOSTIC AND CLINICAL INFORMATION. Performing Lab: see note ML - [facility] LB CBC AUTO DIFF Reviewed date:08/23/2024 08:05:03 PM Interpretation: Performing Lab: Notes/Report: [facility] , White Blood Count 11.7 4.0-11.0 10 3/uL Red Blood Count 4.58 4.20-5.40 10 6/uL Hemoglobin 13.3 12.0-16.0 g/dL Hematocrit 41.0 36.0-48.0 % Mean Corpuscular Volume 89.5 81.0-99.0 fL Mean Corpuscular Hemoglobin 29.0 26.7-34.0 pg Mean Corpuscular HGB Conc 32.4 29.9-35.2 g/dL Red Cell Distribution Width 15.1 11.0-15.0 % Platelet Count 231 150-450 10 3/uL Mean Platelet Volume 10.4 9.5-13.5 fL Neutrophils Percent Auto 77.4 43.0-75.0 % Lymphocytes Percent Auto 10.6 20.5-60.0 % Monocytes Percent Auto 9.3 1.7-12.0 % Eosinophils Percent Auto 2.0 0.9-7.0 % Basophils Percent Auto 0.4 0.2-2.0 % Immature Granulocytes Pct Auto 0.3 0.0-0.5 % Neutrophils Absolute Auto 9.1 1.4-6.5 10 3/uL Lymphocytes Absolute Auto 1.2 1.2-3.8 10 3/uL Monocytes Absolute Auto 1.1 0.3-0.8 10 3/uL Eosinophils Absolute Auto 0.2 0.0-0.7 10 3/uL Basophils Absolute Auto 0.1 0.0-0.1 10 3/uL Immature Granulocytes Abs Auto 0.04 0.00-0.03 10 3/uL Performing Lab: see note ML - [facility] LB PROF CHEM 8 (BAS METB) Reviewed date:08/23/2024 08:05:03 PM Interpretation: Performing Lab: Notes/Report: [facility] , Sodium 139 136-145 mmol/L Potassium 4.3 3.5-5.1 mmol/L Chloride 103 98-107 mmol/L Carbon Dioxide 26.1 21.0-32.0 mmol/L Anion Gap 14.2 Glucose 111 74-106 mg/dL Blood Urea Nitrogen 28.0 7.0-18.0 mg/dL Creatinine 1.37 0.55-1.02 mg/dL Estimated GFR ( Linh 45 >=60 mL/min/1.73m 2 Estimated GFR (Non- Colleen 37 >=60 mL/min/1.73m 2 BUN Creatinine Ratio 20.4 Calcium 9.5 8.5-10.1 mg/dL Performing Lab: see note - [facility] LB Troponin I High Sensitivity Reviewed date:08/17/2024 12:37:21 PM Interpretation: Performing Lab: Notes/Report: [facility] , Troponin I High Sensitivity 35.5 4.0-51.3 pg/mL CUT-OFF POINTS HAVE BEEN ESTABLISHED BASED ON THE FOURTH UNIVERSAL DEFINITION OF MYOCARDIAL INFARCTION. THE UPPER REFERENCE LIMIT (URL) OF TROPONIN, DEFINED THE 99TH PERCENTILE OF cTnI DISTRIBUTION IN A REFERENCE POPULATION, HAS BEEN CONFIRMED THE DECISION THRESHOLD FOR MD DIAGNOSIS. 99TH PERCENTILE = 51.4 PG/ML NOTE: HIGH-SENSITIVITY TROPONIN ASSAY IS NOT INTENDED TO BE USED IN ISOLATION BUT SHOULD BE INTERPRETED IN CONJUNCTION WITH OTHER DIAGNOSTIC AND CLINICAL INFORMATION. Performing Lab: see note - [facility] LB Prothrombin Time INR Reviewed date:08/17/2024 12:37:21 PM Interpretation: Performing Lab: Notes/Report: [facility] , Prothrombin Time 11.9 9.0-11.6 sec INR 1.14 DESIRED INR: 2.0-3.0 CONDITIONS NOT LISTED BELOW 2.5-3.5 FOR PROSTHETIC HEART VALVE REPLACEMENT 2.5-3.5 RECURRENT THROMBOSIS Performing Lab: see note [facility] LB PROF 14(COMP METB) Reviewed date:08/17/2024 12:37:21 PM Interpretation: Performing Lab: Notes/Report: [facility] , Sodium 141 136-145 mmol/L Potassium 4.3 3.5-5.1 mmol/L Chloride 105 98-107 mmol/L Carbon Dioxide 28.0 21.0-32.0 mmol/L Anion Gap 12.3 Glucose 94 74-106 mg/dL Blood Urea Nitrogen 22.0 7.0-18.0 mg/dL Creatinine 1.37 0.55-1.02 mg/dL Estimated GFR ( Linh 45 >=60 mL/min/1.73m 2 Estimated GFR (Non- Colleen 37 >=60 mL/min/1.73m 2 BUN Creatinine Ratio 16.1 Calcium 9.6 8.5-10.1 mg/dL Bilirubin Total 0.5 0.2-1.0 mg/dL Aspartate Amino Transferase 23 15-37 U/L Alanine Aminotransferase 26 14-59 U/L Alkaline Phosphatase 101 46-116 U/L Total Protein 6.6 6.4-8.2 g/dL Albumin Level 3.1 3.4-5.0 g/dL Globulin 3.5 Albumin Globulin Ratio 0.9 Performing Lab: see note ML - [facility] LB CBC AUTO DIFF Reviewed date:08/17/2024 12:37:21 PM Interpretation: Performing Lab: Notes/Report: [facility] , White Blood Count 5.5 4.0-11.0 10 3/uL Red Blood Count 4.65 4.20-5.40 10 6/uL Hemoglobin 13.5 12.0-16.0 g/dL Hematocrit 41.1 36.0-48.0 % Mean Corpuscular Volume 88.4 81.0-99.0 fL Mean Corpuscular Hemoglobin 29.0 26.7-34.0 pg Mean Corpuscular HGB Conc 32.8 29.9-35.2 g/dL Red Cell Distribution Width 15.3 11.0-15.0 % Platelet Count 204 150-450 10 3/uL Mean Platelet Volume 11.0 9.5-13.5 fL Neutrophils Percent Auto 49.0 43.0-75.0 % Lymphocytes Percent Auto 33.9 20.5-60.0 % Monocytes Percent Auto 11.7 1.7-12.0 % Eosinophils Percent Auto 4.5 0.9-7.0 % Basophils Percent Auto 0.7 0.2-2.0 % Immature Granulocytes Pct Auto 0.2 0.0-0.5 % Neutrophils Absolute Auto 2.7 1.4-6.5 10 3/uL Lymphocytes Absolute Auto 1.9 1.2-3.8 10 3/uL Monocytes Absolute Auto 0.7 0.3-0.8 10 3/uL Eosinophils Absolute Auto 0.3 0.0-0.7 10 3/uL Basophils Absolute Auto 0.0 0.0-0.1 10 3/uL Immature Granulocytes Abs Auto 0.01 0.00-0.03 10 3/uL Performing Lab: see note ML - [facility] LB CA echo doppler complete Reviewed date:08/16/2024 08:02:33 PM Interpretation: Performing Lab: Notes/Report: Source Facility: [place] [address] Cardiology Report Signed Patient: SON HUBBARD MR#: [id number] : 1945 Acct:[id number] Age/Sex: 79 / F ADM Date: 08/14/24 Loc: ICU 275-[address]: Pat Graves M.D. Ordering Physician: Pat Graves M.D. Date of Service: 08/16/24 Procedure(s): CA echo doppler complete Accession Number(s): [id number] cc: Pat Graves M.D. Patient Name: SON HUBBARD MR#: [id number] : 1945 Exam Date: 08/16/2024 Ordering Doctor: DR PAT GRAVES . ECHOCARDIOGRAM REPORT PROCEDURE: CA ECHO DOPPLER COMPLETE INDICATIONS: afib, elevated trop COMPARISON: None. DESCRIPTION: COMPLETE ECHOCARDIOGRAM Real-time transthoracic echocardiography with 2D, M-mode, spectral and color flow Doppler performed. QUALITY: Technical quality was good. LEFT VENTRICLE: Normal chamber size. Moderate concentric left ventricular hypertrophy. Global left ventricular systolic function is normal. Calculated left ventricular ejection fraction is 65%. LV EF: DIASTOLIC: Grade II diastolic dysfunction. ATRIAL SEPTUM: Appears intact LEFT ATRIUM: Severe dilatation. RIGHT ATRIUM: Mild dilatation. RIGHT VENTRICLE: Normal chamber size. Normal right ventricular systolic function. TRICUSPID VALVE: Normal mobility and thickness. No stenosis with mild regurgitation. Mild pulmonary hypertension.RVSP 43mmHg MITRAL VALVE: Normal mobility and thickness. No evidence of mitral valve stenosis. There is no mitral annular calcification. Moderate to severe mitral regurgitation. AORTIC VALVE: Normal trileaflet appearance. No visible sclerosis. Normal leaflet mobility. No evidence of aortic valve stenosis. Mild aortic regurgitation. AORTIC ROOT: Normal diameter and appearance. PULMONIC VALVE: Normal thickness and mobility. No stenosis. Trivial regurgitation. PERICARDIUM: No evidence of pericardial effusion. IVC: Collapes with inspirations. Normal size. PLEURA: CONCLUSION: Moderate concentric left ventricular hypertrophy Normal left ventricle systolic function without wall motion abnormalities, ejection fraction 65% Grade 2 left ventricle diastolic dysfunction Normal right ventricle size and systolic function Severely dilated left atrium and mildly dilated right atrium Moderate to severe mitral regurgitation Mild aortic insufficiency Mild tricuspid rotation Mild pulmonary hypertension, RVSP 43 mmHg Adult Echocardiography Procedure Report Left Ventricle LVEDD (3.7 - 5.6 cm): 4.55 cm LVESD (2.2 - 4.0 cm): 2.99 cm LVIVS thickness (0.6 - 1.2 cm): 1.27 cm LVPW thickness (0.5 - 1.0 cm): 1.31 cm e': 0.07 m/s E - e': 18.08 LVOT Max Gradient: 6.49 mm[Hg] LVOT Area (cm2): 1.27 m/s Peak Velocity (LVOT): 1.27 m/s Mean Velocity (LVOT): 0.96 m/s LVOT Diameter 1.85 cm Left Ventricular Ejection Fraction: 65.68 % Left Atrium LA Volume Index (2D A2C): 60.30 ml/m2 Left Atrium Systolic Dimension: 4.40 cm Mitral Valve MV E to A Ratio: 1.53 MV Max Gradient: MV Mean Gradient: Mitral Valve A-Wave Peak Velocity: 0.84 m/s Mitral Valve E-Wave Peak Velocity: 1.28 m/s Cardiovascular Orifice Area: Right Ventricle RV Internal Diastolic Dimension: 3.84 cm Aorta AO Root Diam: 3.01 cm Ascending Ao Diam: 3.36 cm Aortic Valve AoV Area (Peak Eric): 2.47 cm2, 2.47 cm2 AoV Area (VTI): 2.72 cm2, 2.72 cm2 Deceleration Desha: 2.27 m/s2 Pressure Half-Time: 493.96 ms Peak Velocity(Antegrade Flow): 1.38 m/s Peak Gradient(Antegrade Flow): 7.63 mm[Hg] Mean Velocity(Antegrade Flow): 0.93 m/s Mean Gradient(Antegrade Flow): 4.03 mm[Hg] Velocity Time Integral: 30.83 cm Tricuspid Valve Peak Velocity (Regurgitant Flow): 2.71 m/s, 2.95 m/s, 3.14 m/s Peak Velocity: Pulmonic Valve Mean Gradient: 3.63 mm[Hg], 2.36 mm[Hg] Mean Velocity: 0.90 m/s, 0.73 m/s Peak Velocity: 1.16 m/s Peak Gradient: 7.06 mm[Hg], 3.87 mm[Hg] Right Atrium Right Atrium Systolic Pressure: 61.90 ml, 61.90 ml Dictated by: Alanna Noguera MD on 08/16/2024 at 18:16 Approved by: Alanna Noguera MD on 08/16/2024 at 18:27 Dictated By: Alanna Noguera M.D. Signed By: 08/16/241827 DD/ 26 TD/TT: Salvager Helper: [place] [address] Cardiology Report Signed Patient: MATTY HUBBARD CCA MR#: [id number] : 1945 Acct:[id number] Age/Sex: 79 / F ADM Date: 08/14/24 Loc: ICU 275-[address]: Stefani Graves M.D. Ordering Physician: Pat Graves M.D. Date of Service: 08/16/24 Procedure(s): CA ech o doppler complete Accession Number(s): [id number] cc: Pat Graves M.D. Patient Name: SON HUBBARD MR#: [id number] : 1945 Exam Date: 08/16/2024 Ordering Doctor: DR PAT GRAVES . ECHOCARDIOGRAM REPORT PROCEDURE: CA ECHO DOPPLER COMPLETE INDICATIONS: afib, elevated trop COMPARISON: None. DESCRIPTION: COMPLET E ECHOCARDIOGRAM Real-time transthoracic echocardiography wit h 2D, M-mode, spectral and color flow Doppler performed. QUALITY: Technical quality was good. LEFT VENTRICLE: Norm al chamber size. Moderate concentric left ventricular hypertrophy. Global left ventricular systolic function is normal. Calculated left ventricular eje ction fraction is 65%. LV EF: DIASTOLIC: Grade II diastolic dysfunction. ATRIAL SEPTUM: Appea rs intact LEFT ATRIUM: Severe dilatation. RIGHT ATRIUM: Mild dilatation. RIGHT VENTRICLE: Nor mal chamber size. Normal right ventricular systolic function. TRICUSPID VALVE: Nor mal mobility and thickness. No stenosis with mild regurgitation. Mild pulmonary hypertension.RVSP 43mmHg MITRAL VALVE: Normal mobility and thickness. No evidence of mitral valve stenosis. There is n o mitral annular calcification. Moderate to severe mitral regurgitation. AORTIC VALVE: Normal trileaflet appearance. No visible sclerosis. Normal leaflet mobility. No evidence of aortic valve stenosis. Mild aortic regurgitation. AORTIC ROOT: Normal diameter and appearance. PULMONIC VALVE: Norm al thickness and mobility. No stenosis. Trivial regurgitation. PERICARDIUM: No evid ence of pericardial effusion. IVC: Collapes with inspirations. Normal size. PLEURA: CONCLUSION: Moderate concentric left ventricular hypertrophy Normal left ventricl e systolic function without wall motion abnormalities, ejection fraction 65% Grade 2 left ventric le diastolic dysfunction Normal right ventric le size and systolic function Severely dilated lef t atrium and mildly dilated right atrium Moderate to severe m itral regurgitation Mild aortic insufficiency Mild tricuspid rotation Mild pulmonary hypertension, RVSP 43 mmHg Adult Echocardiograp hy Procedure Report Left Ventricle LVEDD (3.7 - 5.6 cm) : 4.55 cm LVESD (2.2 - 4.0 cm) : 2.99 cm LVIVS thickness (0.6 - 1.2 cm): 1.27 cm LVPW thickness (0.5 - 1.0 cm): 1.31 cm e': 0.07 m/s E - e': 18.08 LVOT Max Gradient: 6 .49 mm[Hg] LVOT Area (cm2): 1.27 m/s Peak Velocity (LVOT) : 1.27 m/s Mean Velocity (LVOT) : 0.96 m/s LVOT Diameter 1.85 cm Left Ventricular Eje ction Fraction: 65.68 % Left Atrium LA Volume Index (2D A2C): 60.30 ml/m2 Left Atrium Systolic Dimension: 4.40 cm Mitral Valve MV E to A Ratio: 1.53 MV Max Gradient: MV Mean Gradient: Mitral Valve A-Wave Peak Velocity: 0.84 m/s Mitral Valve E-Wave Peak Velocity: 1.28 m/s Cardiovascular Orifi ce Area: Right Ventricle RV Internal Diastoli c Dimension: 3.84 cm Aorta AO Root Diam: 3.01 cm Ascending Ao Diam: 3 .36 cm Aortic Valve AoV Area (Peak Eric): 2.47 cm2, 2.47 cm2 AoV Area (VTI): 2.72 cm2, 2.72 cm2 Deceleration Desha: 2.27 m/s2 Pressure Half-Time: 493.96 ms Peak Velocity(Antegr mila Flow): 1.38 m/s Peak Gradient(Antegr mila Flow): 7.63 mm[Hg] Mean Velocity(Antegr mila Flow): 0.93 m/s Mean Gradient(Antegr mila Flow): 4.03 mm[Hg] Velocity Time Integr al: 30.83 cm Tricuspid Valve Peak Velocity (Regurgitant Flow): 2.71 m/s, 2.95 m/s, 3.14 m/s Peak Velocity: Pulmonic Valve Mean Gradient: 3.63 mm[Hg], 2.36 mm[Hg] Mean Velocity: 0.90 m/s, 0.73 m/s Peak Velocity: 1.16 m/s Peak Gradient: 7.06 mm[Hg], 3.87 mm[Hg] Right Atrium Right Atrium Systoli c Pressure: 61.90 ml, 61.90 ml Dictated by: Alanna Noguera MD on 08/16/2024 at 18:16 Approved by: Alanna Noguera MD on 08/16/2024 at 18:27 Dictated By: Alanna Noguera M.D. Signed By: 08/16/241827 DD/ 26 TD/TT: Salvager Helper: Troponin I High Sensitivity Reviewed date:08/16/2024 01:49:36 PM Interpretation: Performing Lab: Notes/Report: [facility] , Troponin I High Sensitivity 52.5 4.0-51.3 pg/mL RESULTS CALLED TO PATITO HERRERA RN CUT-OFF POINTS HAVE BEEN ESTABLISHED BASED ON THE FOURTH UNIVERSAL DEFINITION OF MYOCARDIAL INFARCTION. THE UPPER REFERENCE LIMIT (URL) OF TROPONIN, DEFINED THE 99TH PERCENTILE OF cTnI DISTRIBUTION IN A REFERENCE POPULATION, HAS BEEN CONFIRMED THE DECISION THRESHOLD FOR MD DIAGNOSIS. 99TH PERCENTILE = 51.4 PG/ML NOTE: HIGH-SENSITIVITY TROPONIN ASSAY IS NOT INTENDED TO BE USED IN ISOLATION BUT SHOULD BE INTERPRETED IN CONJUNCTION WITH OTHER DIAGNOSTIC AND CLINICAL INFORMATION. Performing Lab: see note ML - [facility] LB Prothrombin Time INR Reviewed date:08/16/2024 01:49:36 PM Interpretation: Performing Lab: Notes/Report: [facility] , Prothrombin Time 10.2 9.0-11.6 sec INR 0.96 DESIRED INR: 2.0-3.0 CONDITIONS NOT LISTED BELOW 2.5-3.5 FOR PROSTHETIC HEART VALVE REPLACEMENT 2.5-3.5 RECURRENT THROMBOSIS Performing Lab: see note ML - [facility] LB PROF 14(COMP METB) Reviewed date:08/16/2024 01:49:36 PM Interpretation: Performing Lab: Notes/Report: [facility] , Sodium 140 136-145 mmol/L Potassium 4.4 3.5-5.1 mmol/L Chloride 105 98-107 mmol/L Carbon Dioxide 24.2 21.0-32.0 mmol/L Anion Gap 15.2 Glucose 112 74-106 mg/dL Blood Urea Nitrogen 20.0 7.0-18.0 mg/dL Creatinine 1.33 0.55-1.02 mg/dL Estimated GFR ( Linh 47 >=60 mL/min/1.73m 2 Estimated GFR (Non- Colleen 39 >=60 mL/min/1.73m 2 BUN Creatinine Ratio 15.0 Calcium 9.3 8.5-10.1 mg/dL Bilirubin Total 0.7 0.2-1.0 mg/dL Aspartate Amino Transferase 33 15-37 U/L Alanine Aminotransferase 26 14-59 U/L Alkaline Phosphatase 99 46-116 U/L Total Protein 6.5 6.4-8.2 g/dL Albumin Level 3.1 3.4-5.0 g/dL Globulin 3.4 Albumin Globulin Ratio 0.9 Performing Lab: see note ML - [facility] LB CBC AUTO DIFF Reviewed date:08/16/2024 01:49:36 PM Interpretation: Performing Lab: Notes/Report: [facility] , White Blood Count 6.3 4.0-11.0 10 3/uL Red Blood Count 4.52 4.20-5.40 10 6/uL Hemoglobin 13.1 12.0-16.0 g/dL Hematocrit 40.3 36.0-48.0 % Mean Corpuscular Volume 89.2 81.0-99.0 fL Mean Corpuscular Hemoglobin 29.0 26.7-34.0 pg Mean Corpuscular HGB Conc 32.5 29.9-35.2 g/dL Red Cell Distribution Width 15.6 11.0-15.0 % Platelet Count 189 150-450 10 3/uL Mean Platelet Volume 10.6 9.5-13.5 fL Neutrophils Percent Auto 58.9 43.0-75.0 % Lymphocytes Percent Auto 22.6 20.5-60.0 % Monocytes Percent Auto 14.3 1.7-12.0 % Eosinophils Percent Auto 3.2 0.9-7.0 % Basophils Percent Auto 0.8 0.2-2.0 % Immature Granulocytes Pct Auto 0.2 0.0-0.5 % Neutrophils Absolute Auto 3.7 1.4-6.5 10 3/uL Lymphocytes Absolute Auto 1.4 1.2-3.8 10 3/uL Monocytes Absolute Auto 0.9 0.3-0.8 10 3/uL Eosinophils Absolute Auto 0.2 0.0-0.7 10 3/uL Basophils Absolute Auto 0.1 0.0-0.1 10 3/uL Immature Granulocytes Abs Auto 0.01 0.00-0.03 10 3/uL Performing Lab: see note ML - [facility] LB Troponin I High Sensitivity Reviewed date:08/15/2024 05:48:27 PM Interpretation: Performing Lab: Notes/Report: [facility] , Troponin I High Sensitivity 89.3 4.0-51.3 pg/mL RESULTS CALLED TO PATITO CASANOVA RN @BY Carmelina Lemus at 1247 CUT-OFF POINTS HAVE BEEN ESTABLISHED BASED ON THE FOURTH UNIVERSAL DEFINITION OF MYOCARDIAL INFARCTION. THE UPPER REFERENCE LIMIT (URL) OF TROPONIN, DEFINED THE 99TH PERCENTILE OF cTnI DISTRIBUTION IN A REFERENCE POPULATION, HAS BEEN CONFIRMED THE DECISION THRESHOLD FOR MD DIAGNOSIS. 99TH PERCENTILE = 51.4 PG/ML NOTE: HIGH-SENSITIVITY TROPONIN ASSAY IS NOT INTENDED TO BE USED IN ISOLATION BUT SHOULD BE INTERPRETED IN CONJUNCTION WITH OTHER DIAGNOSTIC AND CLINICAL INFORMATION. Performing Lab: see note ML - [facility] LB ECG 12 lead Reviewed date:08/16/2024 08:32:48 PM Interpretation: Performing Lab: Notes/Report: Source Facility: [facility] [place] [address] [place] [address] Electrocardiograph Report Signed Patient: SON HUBBARD MR#: [id number] : 1945 Acct:[id number] Age/Sex: 79 / F ADM Date: 08/14/24 Loc: ICU 275- Attending Dr: Pat Graves M.D. Ordering Physician: Genoveva Salazar NP Date of Service: 08/15/24 Procedure(s): ECG 12 lead Accession Number(s): [id number] cc: [facility] Test Date: 2024-08-15 Pat Name: SON HUBBARD Department: Room: [facility] Gender: Female Catalog Specialist: : 1945 Requested By: PAT GRAVES Order Number: [id number] Reading MD: MARCOS ASHLEY Measurements Intervals [place] Rate: 75 P: 52 MI: 168 QRS: 67 QRSD: 82 T: 81 QT: 378 QTc: 406 Interpretive Statements 1100 Sinus rhythm 4068 Nonspecific Twave abnormality 9130 borderline ECG Compared to ECG 08/14/2024 14:03:12 Atrial fibrillation no longer present ST (T wave) deviation no longer present Possible ischemia no longer present Right-axis deviation no longer present Electronically Signed On 08-16-2024 20:25:10 EST by MARCOS ASHLEY Dictated By: Marcos Ashley D.O. Signed By: 08/16/242024 DD/ 0 TD/TT: Salvager Helper: [place] [address] Electrocardiograph Report Signed Patient: MATTY HUBBARD CCA MR#: [id number] : 1945 Acct:[id number] Age/Sex: 79 / F ADM Date: 08/14/24 Loc: ICU 275- Attending Dr: Stefani Graves M.D. Ordering Physician: Genoveva Salazar NP Date of Service: 08/15/24 Procedure(s): ECG 12 lead Accession Number(s): [id number] cc: [facility] Test Date: 2024-08-15 Pat Name: SON MULLER Department: 94 Room: [facility] Gender: Female Catalog Specialist: : 1945 Requ ested By: PAT GRAVES Order Number: [id number] Reading MD: MARCOS ASHLEY Measurements Intervals [place] Rate: 75 P: 52 MI: 168 QRS: 67 QRSD: 82 T: 81 QT: 378 QTc: 406 Interpretive Statements 1100 Sinus rhythm 4068 Nonspecific Twa ve abnormality 9130 borderline ECG Compared to ECG 08/14/2024 14:03:12 Atrial fibrillation no longer present ST (T wave) deviatio n no longer present Possible ischemia no longer present Right-axis deviation no longer present Electronically Kelsey d On 08-16-2024 20:25:10 EST by MARCOS ASHLEY Dictated By: Marcos Ashley D.O. Signed By: 08/16/242024 DD/ 0 TD/TT: Salvager Helper: PROF Crowe(COMP METB) Reviewed date:08/15/2024 05:48:27 PM Interpretation: Performing Lab: Notes/Report: [facility] , Sodium 139 136-145 mmol/L Potassium 4.2 3.5-5.1 mmol/L Chloride 105 98-107 mmol/L Carbon Dioxide 24.5 21.0-32.0 mmol/L Anion Gap 13.7 Glucose 119 74-106 mg/dL Blood Urea Nitrogen 15.0 7.0-18.0 mg/dL Creatinine 1.22 0.55-1.02 mg/dL Estimated GFR ( Linh 52 >=60 mL/min/1.73m 2 Estimated GFR (Non- Colleen 43 >=60 mL/min/1.73m 2 BUN Creatinine Ratio 12.3 Calcium 8.8 8.5-10.1 mg/dL Bilirubin Total 0.5 0.2-1.0 mg/dL Aspartate Amino Transferase 13 15-37 U/L Alanine Aminotransferase 14 14-59 U/L Alkaline Phosphatase 85 46-116 U/L Total Protein 6.3 6.4-8.2 g/dL Albumin Level 3.2 3.4-5.0 g/dL Globulin 3.1 Albumin Globulin Ratio 1.0 Performing Lab: see note ML - [facility] LB CBC AUTO DIFF Reviewed date:08/15/2024 05:48:27 PM Interpretation: Performing Lab: Notes/Report: [facility] , White Blood Count 9.6 4.0-11.0 10 3/uL Red Blood Count 4.38 4.20-5.40 10 6/uL Hemoglobin 12.8 12.0-16.0 g/dL Hematocrit 38.7 36.0-48.0 % Mean Corpuscular Volume 88.4 81.0-99.0 fL Mean Corpuscular Hemoglobin 29.2 26.7-34.0 pg Mean Corpuscular HGB Conc 33.1 29.9-35.2 g/dL Red Cell Distribution Width 15.7 11.0-15.0 % Platelet Count 186 150-450 10 3/uL Mean Platelet Volume 11.1 9.5-13.5 fL Neutrophils Percent Auto 68.6 43.0-75.0 % Lymphocytes Percent Auto 16.9 20.5-60.0 % Monocytes Percent Auto 13.5 1.7-12.0 % Eosinophils Percent Auto 0.5 0.9-7.0 % Basophils Percent Auto 0.3 0.2-2.0 % Immature Granulocytes Pct Auto 0.2 0.0-0.5 % Neutrophils Absolute Auto 6.6 1.4-6.5 10 3/uL Lymphocytes Absolute Auto 1.6 1.2-3.8 10 3/uL Monocytes Absolute Auto 1.3 0.3-0.8 10 3/uL Eosinophils Absolute Auto 0.1 0.0-0.7 10 3/uL Basophils Absolute Auto 0.0 0.0-0.1 10 3/uL Immature Granulocytes Abs Auto 0.02 0.00-0.03 10 3/uL Performing Lab: see note ML - [facility] LB XR chest 1V Reviewed date:08/15/2024 05:48:27 PM Interpretation: Performing Lab: Notes/Report: Source Facility: [facility] [place] [address] [place] [address] XRay Report Signed Patient: SON HUBBARD MR#: [id number] : 1945 Acct:[id number] Age/Sex: 79 / F ADM Date: 08/14/24 Loc: ER Attending Dr: Ordering Physician: Paige Palmer D.O. Date of Service: 08/14/24 Procedure(s): XR chest 1V Accession Number(s): [id number] cc: Paige Palmer D.O.; Pat Graves M.D. [address] [id number] Patient Name: SON HUBBARD MRN: [id number] date: 1945 Sex: F Assigned Patient Location: ER Current Patient Location: ER Accession/Order Number: [id number] Exam Date: 08/14/2024 14:20 Report Date: 08/14/2024 15:10 At the request of: PAIGE PALMER Procedure: XR chest 1V EXAMINATION: XR chest 1V, , 08/14/2024 2:20 PM EST INDICATION: tachycardia HISTORY: Ordering Provider Reason for Exam: tachycardia Technologist Note: Additional: COMPARISON: None. TECHNIQUE: Chest x-ray: One view. FINDINGS: No pneumothorax, pleural effusion or focal airspace consolidation. Heart is normal in size. Bony thorax is unremarkable. XR/XR chest 1V IMPRESSION: No acute cardiopulmonary process. Electronically authenticated by: TABATHA YBARRA Date: 08/14/2024 15:10 Dictated By: Tabatha Ybarra M.D. Signed By: 08/14/24 1512 DD/ 1510 TD/TT: Salvager Helper: [place] [address] XRay Report Signed Patient: MATTY HUBBARD CCA MR#: [id number] : 1945 Acct:[id number] Age/Sex: 79 / F ADM Date: 08/14/24 Loc: ER Attending Dr: Ordering Physician: Paige Palmer D.O. Date of Service: 08/14/24 Procedure(s): XR chest 1V Accession Number(s): [id number] cc: Paige Palmer D.O.; Pat Graves M.D. [address] [address] Patient Name: SON HUBBARD MRN: [id number] date: 1945 Sex: F Assigned Patient Location: ER Current Patient Loca tion: ER Accession/Order Numb er: [id number] Exam Date: 08/14/2024 14:20 Report Date: 08/14/2024 15:10 At the request of: PAIGE PALMER Procedure: XR chest 1V EXAMINATION: XR ches t 1V, , 08/14/2024 2:20 PM EST INDICATION: tachycardia HISTORY: Ordering Provider Re ason for Exam: tachycardia Technologist Note: Additional: COMPARISON: None. TECHNIQUE: Chest x-r ay: One view. FINDINGS: No pneumothorax, ple ural effusion or focal airspace consolidation. Heart is normal in size. Bony thorax is unremarkable. X R/XR chest 1V IMPRESSION: No acute cardiopulmo nary process. Electronically authenticated by: TABATHA YBARRA Date: 08/14/2024 15:10 Dictated By: Tabatha Ybarra M.D. Signed By: 08/14/24 1512 DD/ 1510 TD/TT: Salvager Helper: ECG 12 lead Reviewed date:08/16/2024 08:32:48 PM Interpretation: Performing Lab: Notes/Report: Source Facility: [place] [address] Electrocardiograph Report Signed Patient: SON HUBBARD MR#: [id number] : 1945 Acct:[id number] Age/Sex: 79 / F ADM Date: 08/14/24 Loc: ICU 275- Attending Dr: Pat Graves M.D. Ordering Physician: Paige Palmer D.O. Date of Service: 08/14/24 Procedure(s): ECG 12 lead Accession Number(s): [id number] cc: [facility] Test Date: 2024-08-14 Pat Name: SON HUBBARD Department: Room: - Gender: Female Catalog Specialist: : 1945 Requested By: PAT GRAVES Order Number: [id number] Reading MD: MARCOS ASHLEY Measurements Intervals [place] Rate: 181 P: -89723 MI: -71155 QRS: 107 QRSD: 76 T: 11 QT: 318 QTc: 413 Interpretive Statements 30835 Atrial fibrillation with rapid ventricular response [address] depression, probably digitalis effect 82489 Twave abnormality, possible inferolateral ischemia or digitalis effect 7100 Abnormal right axis deviation 9150 abnormal ECG Electronically Signed On 08-16-2024 20:24:52 EST by MARCOS ASHLEY Dictated By: Marcos Ashley D.O. Signed By: 08/16/242023 DD/ 02 TD/TT: Salvager Helper: [place] [address] Electrocardiograph Report Signed Patient: MATTY HUBBARD CCA MR#: [id number] : 1945 Acct:[id number] Age/Sex: 79 / F ADM Date: 08/14/24 Loc: ICU 275-[address]: Stefani Graves M.D. Ordering Physician: Paige Palmer D.O. Date of Service: 08/14/24 Procedure(s): ECG 12 lead Accession Number(s): [id number] cc: [facility] Test Date: 2024-08-14 Pat Name: SON MULLER Department: 94 Room: - Gender: Female Catalog Specialist: : 1945 Requ ested By: PAT GRAVES Order Number: [id number] Reading MD: MARCOS ASHLEY Measurements Intervals [place] Rate: 181 P: -66934 MI: -49910 QRS: 107 QRSD: 76 T: 11 QT: 318 QTc: 413 Interpretive Statements 29537 Atrial fibrill ation with rapid ventricular response [address] depression, probably digitalis effect 72947 Twave abnormal ity, possible inferolateral ischemia or digitalis effect 7100 Abnormal right axis deviation 9150 abnormal ECG Electronically Kelsey d On 08-16-2024 20:24:52 EST by MARCOS ASHLEY Dictated By: Marcos Ashley D.O. Signed By: 08/16/242023 DD/ 140 TD/TT: Salvager Helper: TSH W/ REFLEX FT4 Reviewed date:08/15/2024 05:48:27 PM Interpretation: Performing Lab: Notes/Report: [facility] , TSH W/ REFLEX FT4 1.383 0.358-3.740 uIU/mL Performing Lab: see note ML - [facility] LB Troponin I High Sensitivity Reviewed date:08/15/2024 05:48:27 PM Interpretation: Performing Lab: Notes/Report: [facility] , Troponin I High Sensitivity 15.7 4.0-51.3 pg/mL CUT-OFF POINTS HAVE BEEN ESTABLISHED BASED ON THE FOURTH UNIVERSAL DEFINITION OF MYOCARDIAL INFARCTION. THE UPPER REFERENCE LIMIT (URL) OF TROPONIN, DEFINED THE 99TH PERCENTILE OF cTnI DISTRIBUTION IN A REFERENCE POPULATION, HAS BEEN CONFIRMED THE DECISION THRESHOLD FOR MD DIAGNOSIS. 99TH PERCENTILE = 51.4 PG/ML NOTE: HIGH-SENSITIVITY TROPONIN ASSAY IS NOT INTENDED TO BE USED IN ISOLATION BUT SHOULD BE INTERPRETED IN CONJUNCTION WITH OTHER DIAGNOSTIC AND CLINICAL INFORMATION. Performing Lab: see note ML - [facility] LB UA (CLEAN or CATCH) PANELBOARD OPERATOR or M ICRO IF IND. Reviewed date:08/15/2024 05:48:27 PM Interpretation: Performing Lab: Notes/Report: [facility] , Color Urine LT. YELLOW YELLOW Clarity Urine CLEAR CLEAR Specific [place] Urine 1.025 1.005-1.025 pH Urine 5.5 5.0-9.0 Protein Urine TRACE NEG/TRACE mg/dL Glucose Urine UA NEGATIVE NEGATIVE mg/dL Bilirubin Urine NEGATIVE NEGATIVE Ketones Urine TRACE NEGATIVE mg/dL Blood Urine NEGATIVE NEGATIVE Nitrite Urine NEGATIVE NEGATIVE Urobilinogen Urine 0.2 0.2-1.0 EU/dL Leukocyte Esterase Urine NEGATIVE NEGATIVE Urine Microscopic Indicated NO Performing Lab: see note ML - [facility] LB PROF 14(COMP METB) Reviewed date:08/15/2024 05:48:27 PM Interpretation: Performing Lab: Notes/Report: [facility] , Sodium 139 136-145 mmol/L Potassium 4.1 3.5-5.1 mmol/L Chloride 103 98-107 mmol/L Carbon Dioxide 23.8 21.0-32.0 mmol/L Anion Gap 16.3 Glucose 149 74-106 mg/dL Blood Urea Nitrogen 23.0 7.0-18.0 mg/dL Creatinine 1.53 0.55-1.02 mg/dL Estimated GFR ( Linh 40 >=60 mL/min/1.73m 2 Estimated GFR (Non- Colleen 33 >=60 mL/min/1.73m 2 BUN Creatinine Ratio 15.0 Calcium 9.5 8.5-10.1 mg/dL Bilirubin Total 1.2 0.2-1.0 mg/dL Aspartate Amino Transferase 11 15-37 U/L Alanine Aminotransferase 14 14-59 U/L Alkaline Phosphatase 99 46-116 U/L Total Protein 7.2 6.4-8.2 g/dL Albumin Level 3.7 3.4-5.0 g/dL Globulin 3.5 Albumin Globulin Ratio 1.1 Performing Lab: see note ML - [facility] LB MAGNESIUM Reviewed date:08/15/2024 05:48:27 PM Interpretation: Performing Lab: Notes/Report: [facility] , Magnesium 1.7 1.8-2.4 mg/dL Performing Lab: see note ML - [facility] LB LACTATE or LACTIC ACID Reviewed date:08/15/2024 05:48:27 PM Interpretation: Performing Lab: Notes/Report: [facility] , Lactate/Lactic Acid 1.6 0.4-2.0 mmol/L Performing Lab: see note ML - [facility] LB CBC AUTO DIFF Reviewed date:08/15/2024 05:48:27 PM Interpretation: Performing Lab: Notes/Report: [facility] , White Blood Count 10.5 4.0-11.0 10 3/uL Red Blood Count 4.83 4.20-5.40 10 6/uL Hemoglobin 14.2 12.0-16.0 g/dL Hematocrit 42.8 36.0-48.0 % Mean Corpuscular Volume 88.6 81.0-99.0 fL Mean Corpuscular Hemoglobin 29.4 26.7-34.0 pg Mean Corpuscular HGB Conc 33.2 29.9-35.2 g/dL Red Cell Distribution Width 15.3 11.0-15.0 % Platelet Count 224 150-450 10 3/uL Mean Platelet Volume 11.0 9.5-13.5 fL Neutrophils Percent Auto 71.9 43.0-75.0 % Lymphocytes Percent Auto 13.3 20.5-60.0 % Monocytes Percent Auto 13.3 1.7-12.0 % Eosinophils Percent Auto 0.8 0.9-7.0 % Basophils Percent Auto 0.5 0.2-2.0 % Immature Granulocytes Pct Auto 0.2 0.0-0.5 % Neutrophils Absolute Auto 7.6 1.4-6.5 10 3/uL Lymphocytes Absolute Auto 1.4 1.2-3.8 10 3/uL Monocytes Absolute Auto 1.4 0.3-0.8 10 3/uL Eosinophils Absolute Auto 0.1 0.0-0.7 10 3/uL Basophils Absolute Auto 0.1 0.0-0.1 10 3/uL Immature Granulocytes Abs Auto 0.02 0.00-0.03 10 3/uL Performing Lab: see note ML - [facility] LB BNP Reviewed date:08/15/2024 05:48:27 PM Interpretation: Performing Lab: Notes/Report: [facility] , NT Pro B Type Natriuretic Pept 310.0 <=1800.0 pg/mL Performing Lab: see note ML - [facility] LB CBC AUTO DIFF Reviewed date:07/26/2024 02:21:39 PM Interpretation: Performing Lab: Notes/Report: [facility] , White Blood Count 6.2 4.0-11.0 10 3/uL Red Blood Count 4.56 4.20-5.40 10 6/uL Hemoglobin 13.1 12.0-16.0 g/dL Hematocrit 40.9 36.0-48.0 % Mean Corpuscular Volume 89.7 81.0-99.0 fL Mean Corpuscular Hemoglobin 28.7 26.7-34.0 pg Mean Corpuscular HGB Conc 32.0 29.9-35.2 g/dL Red Cell Distribution Width 15.7 11.0-15.0 % Platelet Count 191 150-450 10 3/uL Mean Platelet Volume 11.0 9.5-13.5 fL Neutrophils Percent Auto 56.7 43.0-75.0 % Lymphocytes Percent Auto 25.6 20.5-60.0 % Monocytes Percent Auto 12.5 1.7-12.0 % Eosinophils Percent Auto 3.9 0.9-7.0 % Basophils Percent Auto 1.1 0.2-2.0 % Immature Granulocytes Pct Auto 0.2 0.0-0.5 % Neutrophils Absolute Auto 3.5 1.4-6.5 10 3/uL Lymphocytes Absolute Auto 1.6 1.2-3.8 10 3/uL Monocytes Absolute Auto 0.8 0.3-0.8 10 3/uL Eosinophils Absolute Auto 0.2 0.0-0.7 10 3/uL Basophils Absolute Auto 0.1 0.0-0.1 10 3/uL Immature Granulocytes Abs Auto 0.01 0.00-0.03 10 3/uL Performing Lab: see note ML - [facility] LB SGPT Reviewed date:10/06/2024 12:36:39 PM Interpretation: Performing Lab: Notes/Report: [facility] , Alanine Aminotransferase 18 14-59 U/L Performing Lab: see note ML - [facility] LB SGOT Reviewed date:10/06/2024 12:36:39 PM Interpretation: Performing Lab: Notes/Report: [facility] , Aspartate Amino Transferase 16 15-37 U/L Performing Lab: see note ML - [facility] PROF CHEM 8 (BAS METB) Reviewed date:10/06/2024 12:36:39 PM Interpretation: Performing Lab: Notes/Report: [facility] , Sodium 139 136-145 mmol/L Potassium 4.4 3.5-5.1 mmol/L Chloride 105 98-107 mmol/L Carbon Dioxide 27.9 21.0-32.0 mmol/L Anion Gap 10.5 Glucose 100 74-106 mg/dL Blood Urea Nitrogen 35.0 7.0-18.0 mg/dL Creatinine 1.59 0.55-1.02 mg/dL Estimated GFR ( Linh 38 >=60 mL/min/1.73m 2 Estimated GFR (Non- Colleen 31 >=60 mL/min/1.73m 2 BUN Creatinine Ratio 22.0 Calcium 9.4 8.5-10.1 mg/dL Performing Lab: see note ML - [facility] LB LIPID PROFILE Reviewed date:10/06/2024 12:36:39 PM Interpretation: Performing Lab: Notes/Report: [facility] , Triglycerides 141 <=150 mg/dL Cholesterol 123 <=200 mg/dL HDL Cholesterol 55 40-60 mg/dL > or =60 mg/dl - LOW CARDIOVASCULAR RISK <40 mg/dl - HIGH CARDIOVASCULAR RISK LDL Cholesterol Calculated 39.8 <100 mg/dl OPTIMAL 100-129 mg/dl NEAR OR ABOVE OPTIMAL 130-159 mg/dl BORDERLINE HIGH 160-189 mg/dl HIGH >190 mg/dl VERY HIGH VLDL CHOLESTEROL 28.2 Chol HDL Ratio 2.2 3.3 - 4.4 LOW RISK 4.4 - 7.1 AVERAGE RISK 7.1 - 11.0 MODERATE RISK >11.0 HIGH RISK Performing Lab: see note ML - [facility] LB CBC AUTO DIFF Reviewed date:10/06/2024 12:36:39 PM Interpretation: Performing Lab: Notes/Report: [facility] , White Blood Count 5.9 4.0-11.0 10 3/uL Red Blood Count 4.13 4.20-5.40 10 6/uL Hemoglobin 12.2 12.0-16.0 g/dL Hematocrit 37.1 36.0-48.0 % Mean Corpuscular Volume 89.8 81.0-99.0 fL Mean Corpuscular Hemoglobin 29.5 26.7-34.0 pg Mean Corpuscular HGB Conc 32.9 29.9-35.2 g/dL Red Cell Distribution Width 15.5 11.0-15.0 % Platelet Count 200 150-450 10 3/uL Mean Platelet Volume 10.6 9.5-13.5 fL Neutrophils Percent Auto 56.2 43.0-75.0 % Lymphocytes Percent Auto 28.4 20.5-60.0 % Monocytes Percent Auto 11.3 1.7-12.0 % Eosinophils Percent Auto 3.2 0.9-7.0 % Basophils Percent Auto 0.7 0.2-2.0 % Immature Granulocytes Pct Auto 0.2 0.0-0.5 % Neutrophils Absolute Auto 3.3 1.4-6.5 10 3/uL Lymphocytes Absolute Auto 1.7 1.2-3.8 10 3/uL Monocytes Absolute Auto 0.7 0.3-0.8 10 3/uL Eosinophils Absolute Auto 0.2 0.0-0.7 10 3/uL Basophils Absolute Auto 0.0 0.0-0.1 10 3/uL Immature Granulocytes Abs Auto 0.01 0.00-0.03 10 3/uL Performing Lab: see note ML - [facility] LB XR chest 2V Reviewed date:10/05/2024 04:13:05 PM Interpretation: Performing Lab: Notes/Report: Source Facility: [facility] [place] [address] [address] XRay Report Signed Patient: SON HUBBARD MR#: [id number] : 1945 Acct:[id number] Age/Sex: 79 / F ADM Date: 10/05/24 Loc: [facility] Attending Dr: Pat Graves M.D. Ordering Physician: Pat Graves M.D. Date of Service: 10/05/24 Procedure(s): XR chest 2V Accession Number(s): [id number] cc: Pat Graves M.D. [place] [id number] Patient Name: SON HUBBARD MRN: [id number] date: 1945 Sex: F Assigned Patient Location: [facility] Current Patient Location: [facility] Accession/Order Number: [id number] Exam Date: 10/05/2024 15:40 Report Date: 10/05/2024 15:44 At the request of: PAT GRAVES MD Procedure: XR chest 2V PA AND LATERAL CHEST: CLINICAL HISTORY: Follow-up pleural effusion COMPARISON: Chest x-ray and abdominal CT 08/28/2024 . Chest x-ray 08/09/2023 There is no focal parenchymal consolidation or pneumothorax. The lateral costophrenic angles are clear. On the lateral view, the posterior costophrenic angles show slight blunting and a trace amount of residual pleural effusion is possible. The cardiac, hilar and mediastinal silhouettes are stable. There is no vascular congestion. The visualized bony structures are osteopenic. There is levoscoliotic curvature and minimal endplate spurring. There is partially imaged lumbar fusion hardware. XR/XR chest 2V IMPRESSION: TRACE AMOUNT OF RESIDUAL PLEURAL EFFUSION. NO OTHER ACUTE FINDINGS. Impression dictated by: Hope Stkoes M.D.10/05/2024 3:44 PM Dictation Location: [place] [address] Electronically authenticated by: [id number] Y Date: 10/05/2024 15:44 Dictated By: Hope Stokes M.D. Signed By: 10/05/24 1546 DD/ 1544 TD/TT: Salvager Helper: [place] [address] XRay Report Signed Patient: MATTY HUBBARD CCA MR#: [id number] : 1945 Acct:[id number] Age/Sex: 79 / F ADM Date: 10/05/24 Loc: RAD Attending Dr: Stefani Graves M.D. Ordering Physician: Pat Graves M.D. Date of Service: 10/05/24 Procedure(s): XR chest 2V Accession Number(s): [id number] cc: Pat Graves M.D. [place] [address] Patient Name: SON HUBBARD MRN: [id number] date: 1945 Sex: F Assigned Patient Location: [facility] Current Patient Loca tion: RAD Accession/Order Numb er: [id number] Exam Date: 10/05/2024 15:40 Report Date: 10/05/2024 15:44 At the request of: PAT GRAVES MD Procedure: XR chest 2V PA AND LATERAL CHEST: CLINICAL HISTORY: Follow-up pleural effusion COMPARISON: Chest x- ray and abdominal CT 08/28/2024 . Chest x-ray 08/09/2023 There is no focal parenchymal consolidation or pneumothorax. The lateral costophrenic angles are clear. On the lateral view, the posterior costophrenic angles show slight blunting and a trace amount of residual pleural effusion is possible. The cardiac, hilar and mediastinal silhouettes are stable. There is no vascular congestion. The visualized bony structures are osteopenic. There is levoscoliotic curvature and minimal endplate spurring. T here is partially imaged lumbar fusion hardware. X R/XR chest 2V IMPRESSION: TRACE AMOUNT OF RESI DUAL PLEURAL EFFUSION. NO OTHER ACUTE FINDINGS. Impression dictated by: Hope Stokes M.D.10/05/2024 3:44 PM Dictation Location: [place] [address] Electronically authenticated by: [id number] Y Date: 10/05/2024 15:44 Dictated By: Hope Stokes M.D. Signed By: 10/05/24 1546 DD/ 1544 TD/TT: Salvager Helper: CA holter monitor 7-15 days Reviewed date:08/30/2024 07:12:46 PM Interpretation: Performing Lab: Notes/Report: Source Facility: [facility] [place] [address] [place] [address] Cardiology Report Signed Patient: SON HUBBARD MR#: [id number] : 1945 Acct:[id number] Age/Sex: 79 / F ADM Date: 08/14/24 Loc: ICU 275- Attending Dr: Pat Graves M.D. Ordering Physician: Pat Graves M.D. Date of Service: 08/17/24 Procedure(s): CA holter monitor 7-15 days Accession Number(s): [id number] cc: Pat Graves M.D. [facility] Test Date: 2024-08-30 Pat Name: SON HUBBARD Department: Room: [facility] Gender: Female Catalog Specialist: : 1945 Requested By: PAT GRAVES Order Number: [id number] Reading MD: MARCOS ASHLEY Interpretive Statements Predominant rhythm is sinus with average rate of 58 bpm Tachycardia - max rate of 146 bpm (PSVT) - 11 episodes of PSVT w/ fastest rate 146 bpm and longest duration 12 beats Bradycardia (61% burden) - min rate of 44 bpm Ventricular ectopy - 328 total, < 1% burden - 326 PVC, 2 couplets Patient triggered events: 1 Impression: Predominant rhythm is sinus with average rate of 58 bpm Fastest rate of 146 bpm (PSVT) and slowest rate of 44 bpm 326 PVC, 2 couplets longest episode of sinus ta is 2h 41min 37sec with rates between 48-52 bpm No atrial fibrllation No pauses Electronically Signed On 08-30-2024 18:21:43 EST by MARCOS ASHLEY Dictated By: Marcos Ashley D.O. Signed By: 08/30/24182008/30/241820 DD/ 1446 TD/TT: Salvager Helper: [place] [address] Cardiology Report Signed Patient: MATTY HUBBARD CCA MR#: [id number] : 1945 Acct:[id number] Age/Sex: 79 / F ADM Date: 08/14/24 Loc: ICU 275- Attending Dr: Stefani Graves M.D. Ordering Physician: Pat Graves M.D. Date of Service: 08/17/24 Procedure(s): CA hol ter monitor 7-15 days Accession Number(s): [id number] cc: Pat Graves M.D. [facility] Test Date: 2024-08-30 Pat Name: SON MULLER Department: 94 Room: [facility] Gender: Female Catalog Specialist: : 1945 Requested By: PAT GRAVES Order Number: [id number] Reading MD: MARCOS ASHLEY Interpretive Statements Predominant rhythm i s sinus with average rate of 58 bpm Tachycardia - max rate of 146 bp m (PSVT) - 11 episodes of PSV T w/ fastest rate 146 bpm and longest duration 12 beats Bradycardia (61% burden) - min rate of 44 bpm Ventricular ectopy - 328 total, < 1% burden - 326 PVC, 2 couplets Patient triggered ev ents: 1 Impression: Predominant rhythm i s sinus with average rate of 58 bpm Fastest rate of 146 bpm (PSVT) and slowest rate of 44 bpm 326 PVC, 2 couplets longest episode of s inus ta is 2h 41min 37sec with rates between 48-52 bpm No atrial fibrllation No pauses Electronically Kelsey d On 08-30-2024 18:21:43 EST by MARCOS ASHLEY Dictated By: Marcos Ashley D.O. Signed By: 08/30/24182008/30/241820 DD/ 144 TD/TT: Salvager Helper: Troponin I High Sensitivity Reviewed date:08/23/2024 08:05:03 PM Interpretation: Performing Lab: Notes/Report: [facility] , Troponin I High Sensitivity 5.1 4.0-51.3 pg/mL CUT-OFF POINTS HAVE BEEN ESTABLISHED BASED ON THE FOURTH UNIVERSAL DEFINITION OF MYOCARDIAL INFARCTION. THE UPPER REFERENCE LIMIT (URL) OF TROPONIN, DEFINED THE 99TH PERCENTILE OF cTnI DISTRIBUTION IN A REFERENCE POPULATION, HAS BEEN CONFIRMED THE DECISION THRESHOLD FOR MD DIAGNOSIS. 99TH PERCENTILE = 51.4 PG/ML NOTE: HIGH-SENSITIVITY TROPONIN ASSAY IS NOT INTENDED TO BE USED IN ISOLATION BUT SHOULD BE INTERPRETED IN CONJUNCTION WITH OTHER DIAGNOSTIC AND CLINICAL INFORMATION. Performing Lab: see note ML - [facility] LB XR chest 1V Reviewed date:08/23/2024 08:05:03 PM Interpretation: Performing Lab: Notes/Report: Source Facility: [facility] [place] [address] [place] [address] XRay Report Signed Patient: SON HUBBARD MR#: [id number] : 1945 Acct:[id number] Age/Sex: 79 / F ADM Date: 08/23/24 Loc: ER Attending Dr: Ordering Physician: Isidra Paul M.D. Date of Service: 08/23/24 Procedure(s): XR chest 1V Accession Number(s): [id number] cc: Pat Graves M.D.; Iisdra Paul M.D. The [place] [address] Patient Name: SON HUBBARD MRN: [id number] date: 1945 Sex: F Assigned Patient Location: ER Current Patient Location: ER Accession/Order Number: [id number] Exam Date: 08/23/2024 13:22 Report Date: 08/23/2024 13:34 At the request of: ISIDRA PAUL Procedure: XR chest 1V EXAM: XR chest 1V HISTORY: . Chest pain . COMPARISON: None. TECHNIQUE: Single view of the chest FINDINGS: Heart and vascularity are unremarkable. Lungs are free of focal infiltrates. EKG leads overlie the chest. XR/XR chest 1V IMPRESSION: No acute heart or lung disease identified. Electronically authenticated by: ERROL KRISHNAMURTHY Date: 08/23/2024 13:34 Dictated By: Errol Krishnamurthy M.D. Signed By: 08/23/241335 DD/ 33 TD/TT: Salvager Helper: [place] [address] XRay Report Signed Patient: MATTY HUBBARD CCA MR#: [id number] : 1945 Acct:[id number] Age/Sex: 79 / F ADM Date: 08/23/24 Loc: ER Attending Dr: Ordering Physician: Isidra Paul M.D. Date of Service: 08/23/24 Procedure(s): XR chest 1V Accession Number(s): [id number] cc: Pat Graves M.D. ; Isidra Paul M.D. [place] [address] Patient Name: SON HUBABRD MRN: [id number] date: 1945 Sex: F Assigned Patient Location: ER Current Patient Loca tion: ER Accession/Order Numb er: [id number] Exam Date: 08/23/2024 13:22 Report Date: 08/23/2024 13:34 At the request of: ISIDRA PAUL Procedure: XR chest 1V EXAM: XR chest 1V HISTORY: . Chest pain . COMPARISON: None. TECHNIQUE: Single vi ew of the chest FINDINGS: Heart and vascularity are unremarkable. Lungs are free of focal infiltrates. EKG leads overlie th e chest. X R/XR chest 1V IMPRESSION: No acute heart or willy ng disease identified. Electronically authenticated by: ERROL KRISHNAMURTHY Date: 08/23/2024 13:34 Dictated By: Danna Krishnamurthy M.D. Signed By: 08/23/24 1336 DD/ 133 TD/TT: Salvager Helper: ECG 12 lead Reviewed date:08/24/2024 06:30:32 AM Interpretation: Performing Lab: Notes/Report: Source Facility: [place] [address] [place] [address] Electrocardiograph Report Signed Patient: SON HUBBARD MR#: [id number] : 1945 Acct:[id number] Age/Sex: 79 / F ADM Date: 08/23/24 Loc: ER Attending Dr: Ordering Physician: Isidra Paul M.D. Date of Service: 08/23/24 Procedure(s): ECG 12 lead Accession Number(s): [id number] cc: [facility] Test Date: 2024-08-23 Pat Name: SON HUBBARD Department: Room: - Gender: Female Catalog Specialist: : 1945 Requested By: PAT GRAVES Order Number: [id number] Reading MD: PAT GRAVES Measurements Intervals [place] Rate: 65 P: 64 MI: 156 QRS: 68 QRSD: 76 T: 60 QT: 414 QTc: 426 Interpretive Statements 1100 Sinus rhythm 9110 normal ECG Compared to ECG 08/15/2024 03:11:26 No significant changes Electronically Signed On 08-24-2024 5:54:03 EST by PAT GRAVES Dictated By: Pat Graves M.D. Signed By: 08/24/24 0554 DD/ 1311 TD/TT: Salvager Helper: [place] [address] Electrocardiograph Report Signed Patient: MATTY HUBBARD CCA MR#: [id number] : 1945 Acct:[id number] Age/Sex: 79 / F ADM Date: 08/23/24 Loc: ER Attending Dr: Ordering Physician: Isidra Paul M.D. Date of Service: 08/23/24 Procedure(s): ECG 12 lead Accession Number(s): [id number] cc: [facility] Test Date: 2024-08-23 Pat Name: SON MULLER Department: 94 Room: - Gender: Female Catalog Specialist: : [id number] Requ ested By: PAT GRAVES Order Number: [id number] Reading MD: PAT GRAVES Measurements Intervals [place] Rate: 65 P: 64 MI: 156 QRS: 68 QRSD: 76 T: 60 QT: 414 QTc: 426 Interpretive Statements 1100 Sinus rhythm 9110 normal ECG Compared to ECG 08/15/2024 03:11:26 No significant changes Electronically Kelsey d On 08-24-2024 5:54:03 EST by PAT GRAVES Dictated By: Do rosi Graves M.D. Signed By: 08/24/24 0554 DD/ 1311 TD/TT: Salvager Helper: Troponin I High Sensitivity Reviewed date:08/23/2024 08:05:03 PM Interpretation: Performing Lab: Notes/Report: [facility] , Troponin I High Sensitivity 6.8 4.0-51.3 pg/mL CUT-OFF POINTS HAVE BEEN ESTABLISHED BASED ON THE FOURTH UNIVERSAL DEFINITION OF MYOCARDIAL INFARCTION. THE UPPER REFERENCE LIMIT (URL) OF TROPONIN, DEFINED THE 99TH PERCENTILE OF cTnI DISTRIBUTION IN A REFERENCE POPULATION, HAS BEEN CONFIRMED THE DECISION THRESHOLD FOR MD DIAGNOSIS. 99TH PERCENTILE = 51.4 PG/ML NOTE: HIGH-SENSITIVITY TROPONIN ASSAY IS NOT INTENDED TO BE USED IN ISOLATION BUT SHOULD BE INTERPRETED IN CONJUNCTION WITH OTHER DIAGNOSTIC AND CLINICAL INFORMATION. Performing Lab: see note ML - [facility] Reason For Referral Diagnosis 1 Pleural effusion (J9 0) Referral Organization [facility] Referring Provider First Name Pablo Referring Provider Last Name Star Referring Provider Speciality Family Med lily Referred Provider Camron Chapman Referred Provider Specialty Pulmonary Di seases Referral Priority Routine Medications Medication SIG (Take, Route, Frequency, Duration) [...] tablet Orally Once a day 12/19/2023 Active Albuterol Sulfate HFA 108 (90 Base) [...] one tablet po days 2-5 02/17/2025 Active Atorvastatin Calcium 40 MG TAKE 1 TABLET BY MOUTH EVERY DAY for 90 Active Warfarin Sodium 5 MG 1 tablet Orally Onc e a day 08/25/2024 Active Doxepin HCl 10 MG TAKE 1 CAPSULE BY MOUTH EVERY DAY AT BEDTIME FOR 30 DAYS for 90 Active hydrALAZINE HCl 25 MG 1 tablet with food Orally Twice a day Active Isosorbide Mononitrate ER 30 MG TAKE 1 TABLET BY MOUTH EVERY 24 HOURS for 90 Active Lexapro 20 MG 1 tablet Orally Once a day for 30 days 11/11/2022 Active Social History Tobacco Use: Social History [...] Problem Status W/U Status Risk Notes Problem 13645687 Essential (primary) hypertension (I10) Active confirmed Problem 39445551 Nonrheumatic mitral (valve) insufficiency (I34.0) Active confirmed Problem 171149454 Nonrheumatic aortic (valve) insufficiency (I35.1) Active confirmed Problem 563432177 Acute on chronic diastolic (congestive) heart failure (I50.33) Active confirmed Problem Shortness of breath (775124998) Shortness of breath (R06.02) Active confirmed Problem Chest pain (93233973) Chest pain (R07.9) Active confirmed Problem Atrial fibrillation (28622170) Atrial fibrillation (I48.91) Active confirmed Problem Gastroesophageal reflux disease (114592430) GERD (gastroesophageal reflux disease) (K21.9) Active confirmed Problem Dyslipidemia (735359937) Dyslipidemia (E78.5) Active confirmed Problem Atrial fibrillation (disorder) (58739015) Afib (I48.91) Active confirmed Problem Coronary artery disease (00843304) CAD (coronary artery disease) (I25.10) Active confirmed Problem 01962238 Anxiety (F41.9) Active confirmed Problem Tachycardia (8500841) Tachycardia (R00.0) Active confirmed Problem Coronary artery disease (09583555) Coronary artery disease (I25.10) Active confirmed Problem Hypothyroid (25630293) Hypothyroid (E03.9) Active confirmed Problem Dyspnea (316767219) Dyspnea (R06.00) Active con firmed Problem Vertigo (394638084) Vertigo (R42) Active confir med Problem Sinusitis (58330915) Sinusitis (J32.9) Active confirmed Problem Acute sinusitis (48929510) Acute sinusitis (J01.90) Active confirmed Problem Allergic conjunctivitis (777802818) Allergic conjunctivitis (H10.10) Active confirmed Problem Acquired hypothyroidism (495718591) Acquired hypothyroidism (E03.9) Active confirmed Problem Atrial fibrillation (38746286) Atrial fibrillation, unspecified (I48.91) Active confirmed Problem Atrial fibrillation (15921643) Atrial fibrillation with RVR (I48.91) Active confirmed Problem Pleural effusion (21376840) Pleural effusion (J90) Active confirmed Problem Blepharitis (77231131) Blepharitis (H01.009) Active confirmed Problem Atrial fibrillation (35070037) New onset a-fib (I48.91) Active confirmed Problem 670489474 Insomnia, unspecified type (G47.00) Active confirmed Problem Trigeminy (41971989) Trigeminy (R00.8) Active confirmed Problem 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 Problem Essential hypertension (76322570) BP (high blood pressure) (I10) Active confirmed Problem Acute worsening of stage 3 chronic kidney disease (N18.30) Active confirmed Problem Impingement syndrome of shoulder region (572011368) Shoulder impingement (M25.819) Active confirmed Vital Signs Temperature 98.7 degrees Fahrenheit 02/17/2025 Blood pressure diastolic 70 mm Hg 02/17/2025 Height 64 in 02/17/2025 Blood pressure systolic 118 mm Hg 02/17/2025 Weight 177 lbs 02/17/2025 BMI 30.38 kg/m2 02/17/2025 Procedures Procedure Date Ordered Date Performed Result Body Sit e *CARDIO Stress Test - Lexiscan Nuclear 08/25/2024 N/A Encounters Encounter Location Date Provider Diagnosis [facility] [address] [place] [address] 07/05/2024 Pablo Hoy Acute non-recurrent sinusitis, unspecified location J01.90 and Nasal congestion R09.81 [facility] [address] [place] [address] 04/05/2024 Pablo Hoy Blepharitis H01.009 ; Allergic conjunctivitis H10.10 and Acute sinusitis J01.90 [facility] [address] [facility] [address] 08/25/2024 Pablo Graves Coronary artery dise ase I25.10 and Acute on chronic diastolic (congestive) heart failure I50.33 [facility] [address] [facility] [place] [address] 09/27/2024 Pablo Graves Pleural effusion J90 [facility] [address] [facility] [place] [address] 02/17/2025 Stefanie Flash Sinusitis J32.9 [facility] [address] [facility] [address] 07/26/2024 Pablo Graves [facility] [address] [facility] [address] 07/27/2024 Pablo Graves Acute non-recurrent sinusitis, unspecified location J01.90 [facility] [address] [facility] [address] 08/01/2024 Pablo Graves [facility] [address] [facility] [address] 08/06/2024 Pablo Graves [facility] [address] [facility] [place] [address] 08/17/2024 Pablo [place]bania [facility] [address] [facility] [address] 08/25/2024 Pablo Graves [facility] [address] [facility] [place] [address] 08/30/2024 Pablo Graves [facility] [address] [facility] [place] [address] 09/14/2024 Pablo Graves [facility] [address] [facility] [place] [address] 09/14/2024 Pablo [place] [facility] [address] [facility] [place] [address] 09/27/[address] [facility] [address] [facility] [place] [place] [address] 10/04/2024 [facility] [address] [facility] [address] 10/05/2024 Pablo Graves [facility] [address] [facility] [address] 10/06/2024 Pablo Graves Elevated BUN R79.9 [facility] [place] [address] [facility] [place] [address] 10/11/2024 Cam[facility] [address] [facility] [address] 10/11/2024 Pablo Graves [facility] [address] [facility] [address] 10/11/2024 Pablo Graves [facility] [address] [facility] [address] 01/10/2025 Pablo Graves Assessments Encounter Date Diagnosis (ICD Code) Assessment Notes Treatment Notes Treatment Clinical Notes Section Notes 04/05/2024 Blepharitis (ICD-10 - H01.009) 04/05/2024 Allergic conjunctivitis (ICD-10 - H10.10) 08/25/2024 Coronary artery disease (ICD-10 - I25.10) 08/25/2024 Acute on chronic diastolic (congestive) heart failure (ICD-10 - I50.33) 09/27/2024 Pleural effusion (ICD-10 - J90) 02/17/2025 Sinusitis (ICD-10 - J32.9) fu if not improving 07/05/2024 Acute non-recurrent sinusitis, unspecified location (ICD-10 - J01.90) Rest and drink more liquids, especially water. You may use a humidifier or vaporizer to help keep the drainage moist. Hunt-rig-argknsh Nasal Saline may help the stuffy and runny nose. Use Ibuprofen and or Tylenol as needed for fever, chills, body aches or pain. Children 5 years old should not be given vlgh-gub-bqeedbq cough and cold medications such as guaifenesin and dextromethorphan. If you're over age 5, you may try suty-gde-ippjpas cold medications such as guaifenesin and dextromethorphan, or multi-symptom cold reliever such as Dayquil to help reduce the symptoms. Antibiotics have been prescribed. You should take these until completed and follow the directions. Antibiotics can sometimes cause upset stomach, and in rare cases, serious allergic reactions or serious gastrointestinal problems. If you start having severe abdominal pain, severe vomiting, or bloody diarrhea, you should be reevaluated by your physician or urgent care immediately. Follow up with your Primary Care Provider or return to clinic if symptoms do not improve within 3-5 days 07/27/2024 Acute non-recurrent sinusitis, unspecified location (ICD-10 - J01.90) 10/06/2024 Elevated BUN (ICD-10 - R79.9) 07/05/2024 Nasal congestion (ICD-10 - R09.81) 04/05/2024 Acute sinusitis (ICD-10 - J01.90) Plan Of Treatment Pending Test Test Name Order Date Lexiscan Stress Nuclear Test 06/26/2023 CMP (COMPLETE METABOLIC PANEL) 3 CBC WITH DIFF 11/11/2022 T3 FREE, T4 FREE and TSH 11/11/2022 FTI 11/11/2022 Insulin Level 11/11/2022 Basic Metabolic Panel (8) 10/06/2024 XR CHEST 2 V 09/27/2024 THYROID PANEL (T4/TSH/FREE T3) 4 *CARDIO Stress Test - Lexiscan Nuclear 0 08/25/2024 Insurance Providers Payer Name Payer Address Payer Phone Subscriber Number Group Number Insured Name Patient Relationship to Insured Coverage Start Date Coverage End Date [place] [address] [place] [address] [id number] Son Hubbard Self - patient is the insured 1 [employer] SUPPLEMENT INSURANCE [address] [place] [phone] [id number] PLAN G Son Hubbard Self - patient is the insured 0 Medications Administered Medication Instructions Date of Administration Dosage Notes Kenalog-40 06/17/2023 80 mg 80 mg Medical (General) History Medical History History ICD Code Depression Anxiety Pulmonary, Hypertension Raynaud's Mitral Valve Regurtitation IBS-D Surgical History Surgery Date(Month/Year) Right Knee Replacement 2013 Lumbar Discetomy 2017 Back Surgery 2019 Stent Placement 2019 Hospitalization History Reason Date(Month/Year) A-Fib 08/2024 A-fib 10/04 Congestion 06/2023
--- OUTSIDE RECORDS SUMMARY | 2025-02-28 08:19 | XMS_ITS | Encounter Summary ---
Author Organization [facility] Address [address] [place] [address] Phone Care Team Providers Care Ux Specialist Name Role Phone Demarco Graves MD Primary Care Provider [phone] Encounter Details Date Type Department Care Team (Late Contact Info) Description 10/06/2024 Scanned Document [facility] [address] [place] [address] Scanning, Generic Provider Social History Tobacco Use [...] suspected to have Coronavirus/COVID-19? No / Unsure 10/04/2024 2:48 PM EST documented as of this encounter Plan of Treatment Upcoming Encounters Date Type Department Care Team (Late st Contact Info) Description 04/08/2025 10:45 AM EDT Appointment [address] [place] [address] 10/11/2025 10:10 AM EST Office Visit [address] [place] [address] Víctor Jones MD [address] [facility] [address] [place] [address] documented as of this encounter Procedures Procedure Name Priority Date/Time Associated Diagnosis Comments OUTSIDE LAB SCAN 10/06/2024 documented in this encounter Results * OUTSIDE LAB SCAN (10/06/2024) Narrative 10/06/2024 Ordered by an unspecified provider. us Generic Provider Scanning OUTSIDE SCAN Final Result documented in this encounter Visit Diagnoses Not on filedocumented in this encounter Additional Health Concerns Assessment Noted Time A fall risk assessment has been complete d for the patient 07/16/2024 2:47 PM EST documented as of this encounter Care Teams Ux Specialist Relationship Specialty Start Date End Date Demarco Graves MD [address] [place] [address] PCP - General Family Medicine 01/12/24 documented as of this encounter
--- OUTSIDE RECORDS SUMMARY | 2025-02-28 08:19 | XMS_ITS | Encounter Summary ---
Author Organization [facility] Address [address] [place] [address] Phone Care Team Providers Care Reservoir Engineering Consultant Name Role Phone Demarco Graves MD Primary Care Provider [phone] Encounter Details Date Type Department Care Team (Late st Contact Info) Description 09/08/2024 Scanned Document [facility] [address] [place] [address] Scanning, Generic Provider Social History Tobacco Use [...] Info) Description 04/08/2025 10:45 AM EDT Appointment [address] [place] [address] 10/11/2025 10:10 AM EST Office Visit [address] [place] [address] Víctor Jones MD [address] [facility] [address] [place] [address] documented as of this encounter Procedures Procedure Name Priority Date/Time Associated Diagnosis Comments OUTSIDE LAB SCAN 09/08/2024 documented in this encounter Results * OUTSIDE LAB SCAN (09/08/2024) Narrative 09/08/2024 Ordered by an unspecified provider. us Generic Provider Scanning OUTSIDE SCAN Final Result documented in this encounter Visit Diagnoses Not on filedocumented in this encounter Additional Health Concerns Assessment Noted Time A fall risk assessment has been complete d for the patient 07/16/2024 2:47 PM EST documented as of this encounter Care Teams Reservoir Engineering Consultant Relationship Specialty Start Date End Date Demarco Graves MD [address] [place] [address] PCP - General Family Medicine 01/12/24 documented as of this encounter
--- OUTSIDE RECORDS SUMMARY | 2025-02-28 08:19 | XMS_ITS | Encounter Summary ---
Author Organization [facility] Address [address] [place] [address] Phone Care Team Providers Care Waiter Waitress Name Role Phone Demarco Graves MD Primary Care Provider [phone] Encounter Details Date Type Department Care Team (Late st Contact Info) Description 08/29/2024 Scanned Document [facility] [address] [place] [address] Scanning, Generic Provider Social History Tobacco Use [...] Info) Description 04/08/2025 10:45 AM EDT Appointment [address] [place] [address] 10/11/2025 10:10 AM EST Office Visit [address] [place] [address] Víctor Jones MD [address] [place] [address] [address] [place] [address] documented as of this encounter Visit Diagnoses Not on filedocumented in this encounter Additional Health Concerns Assessment Noted Time A fall risk assessment has been complete d for the patient 07/16/2024 2:47 PM EST documented as of this encounter Care Teams Waiter Waitress Relationship Specialty Start Date End Date Demarco Graves MD [address] [place] [address] PCP - General Family Medicine 01/12/24 documented as of this encounter
--- OUTSIDE RECORDS SUMMARY | 2025-02-28 08:19 | XMS_ITS | Patient Health Record ---
Author Organization [facility] Address [address] [place] [address] Care Team Providers Care Hair Dryer Name Role Phone Demarco Graves Primary Care Provider Unavailabl e Mckenzie Zuniga Unavailable [phone] Ata Toscano MD Unavailable Unavailable Allergies Allergen (clinical drug ingredient) Drug/Non Drug Allergy documented on EMR Reaction Allergy Type Onset Date Status hydromorphone Dilaudid Unknown Drug Allergy Act thomas gabapentin Neurontin Unknown Drug Allergy Active angiotensin-converting enzyme inhibitor (FN) SERINA Inhibitors Unknown Drug Allergy Acti ve amlodipine Amlodipine Unknown Drug Allergy Activ e codeine Codeine Unknown Drug Allergy Active meperidine Meperidine Unknown Drug Allergy Activ e morphine Morphine Unknown Drug Allergy Active Reason For Referral No Information Medications Medication SIG (Take, Route, Frequency, Duration) Notes Start Date End Date Status Liothyronine Sodium 5 MCG 1 tablet on an empty stomach Orally Once a day Active Isosorbide Mononitrate ER 30 MG 1 tablet in the morning Orally Once a day Active Atorvastatin Calcium 40 MG 1 tablet Orally Once a day Active Amiodarone HCl 200 MG 1/2 tablet Orally Once a day Active Pantoprazole Sodium 40 MG 1 tablet Orally Once a day Active Aspir-Low 81 MG 1 tablet Orally Once a day Not-Taking hydrALAZINE HCl 25 MG 1 tablet with food Orally twice a day Active Klor-Con M20 20 MEQ 1 tablet with food Orally Once a day with lasix as needed Not-Taking Clopidogrel Bisulfate 75 MG 1 tablet Orally Once a day Active Eliquis 5 MG 1 tablet Orally Twice a day Active Furosemide 40 MG 1 tablet Orally Once a day as needed Not-Taking Lexapro 10 MG 1 tablet Orally Once a day Active Social History Tobacco Use: Social History Observation Description Date Details (start date - stop date) Never Smoker NA - NA Tobacco Control (Standard) Question Answer Notes Tobacco use: Nonsmoker AUDIT-C (Standard) Question Answer Notes Did you have a drink containing alcohol in the p ast year? No Points 0 Interpretation Negative Problems Problem Type SNOMED Code ICD Code Onset Dates Problem Status W/U Status Risk Notes Problem Coronary artery disease (34716771) CAD (coronary artery disease) (I25.10) Active confirmed Problem Hypertension (37084623) HTN (hypertension) (I10) Active confirmed Problem Chronic kidney disease stage 3 (disorder) (026617767) Chronic kidney disease, stage 3 unspecified (N18.30) Active confirmed Plan Of Treatment Future Test Test Name Order Date CMP (Complete Metabolic Panel) 4 Phosphorus, Serum 04/12/2024 PTH, Intact 04/12/2024 25 [place] Vitamin D-3 04/12/2024 CMP (Complete Metabolic Panel) 4 Spot Urine Protein to Creatinine Ratio 0 04/12/2024 cbc 04/12/2024 Urinalysis w/Microscopic 04/12/2024 Insurance Providers Payer Name Payer Address Payer Phone Subscriber Number Group Number Insured Name Patient Relationship to Insured Coverage Start Date Coverage End Date MEDICARE [address] [place] [phone] [id number] Cece Hubbard Self - patient is the insured [employer] SUPPLEMENT [address] [place] [phone] [id number] Cece Hubbard Self - patient is the insured Medical (General) History Medical History History ICD Code hypertension hyperlipidemia Hypothyroidism coronary artery disease mitral valve regurgitation Atrial fibrillation Acute Kidney Injury Surgical History Surgery Date(Month/Year) cardiac catheterization stents (cardiac) right knee replacement lumbar microdiskectomy Back surgery Hospitalization History Reason Date(Month/Year) CAD 11/2023
--- OUTSIDE RECORDS SUMMARY | 2025-02-28 08:19 | XMS_ITS | Encounter Summary ---
Author Organization [facility] Address [address] [place] [address] Phone Care Team Providers Care Library Serials Assistant Name Role Phone Demarco Graves MD Primary Care Provider [phone] Encounter Details Date Type Department Care Team (Late Contact Info) Description 10/05/2024 Scanned Document [facility] [address] [place] [address] Scanning, Generic Provider Social History Tobacco Use [...] Info) Description 04/08/2025 10:45 AM EDT Appointment [address] [place] [address] 10/11/2025 10:10 AM EST Office Visit [address] [place] [address] Víctor Jones MD [address] [facility] [address] [place] [address] documented as of this encounter Procedures Procedure Name Priority Date/Time Associated Diagnosis Comments OUTSIDE LAB SCAN 10/05/2024 documented in this encounter Results * OUTSIDE LAB SCAN (10/05/2024) Narrative 10/05/2024 Ordered by an unspecified provider. us Generic Provider Scanning OUTSIDE SCAN Final Result documented in this encounter Visit Diagnoses Not on filedocumented in this encounter Additional Health Concerns Assessment Noted Time A fall risk assessment has been complete d for the patient 07/16/2024 2:47 PM EST documented as of this encounter Care Teams Library Serials Assistant Relationship Specialty Start Date End Date Demarco Graves MD [address] [place] [address] PCP - General Family Medicine 01/12/24 documented as of this encounter
--- OUTSIDE RECORDS SUMMARY | 2025-02-28 08:19 | XMS_ITS | Encounter Summary ---
Author Organization [facility] Address [address] [place] [address] Care Team Providers Care Naval Surface Fire Support Planner Name Role Phone Ashanti Meyer MD Unavailable Vasyl Covarrubias MD Unavailable [phone] Demarco Graves MD Primary Care Provider [phone] Mily Whiting [facility] Unavailable [phone] Vasyl Covarrubias MD Unavailable [phone] Source Comments In the event this information is protected by the Federal Confidentiality of Alcohol and Drug AbusePatient Records regulations: The Federal rules restrict any use of the information to criminally investigate or prosecute any alcohol or drug abuse patient.[facility] Encounter Details Date Type Department Care Team (Late st Contact Info) Description 11/20/2023 [place] [address] Provider, [facility] Social History Tobacco Use Types Packs/Day Years Used Date Smoking Tobacco: Former Cigarettes 0.7 4 0 04/28/1986 - 04/28/1990 Smokeless Tobacco: Former Alcohol Use Standard Drinks/Week Comments No 0 (1 standard drink = 0.6 oz pur e alcohol) [facility] Utilities Answer Date Recorded In the past 12 months has th e electric, gas, oil, or water 1Lay threatened to shut off services in your [...] place to sleep or slept in a alf (including now)? No 11/05/2023 Area Deprivation Index Answer Date Pb rded National Score (1-100), lower number is lower ri sk 80 10/27/2023 State Score (1-10), lower number is lower risk 7 10/27/2023 Data from: https://www.neighborhoodatlas.medicine.[facility].edu/. Last address used for calculation [address] [facility] 10/27/2023 Comments No Sex and Gender Information [...] on filedocumented in this encounter Care Teams Naval Surface Fire Support Planner Relationship Specialty Start Date End Date Demarco Graves MD [address] [place], [place] [phone] PCP - General Family Medicine 10/31/23 Ashanti Meyer MD [address] [place] [address] Surgeon Cardiac Surg 10/31/23 [place] [address] [place] [id number] Training And Documentation Specialist Cardiology 10/31/23 Mily Whiting [facility] [address] [place] [address] Transitional Care Pharmacist Pharmacy 12/04/23 01/02/24 [place] [address] [place] [address] Training And Documentation Specialist Cardiology 12/23/23 12/23/23 documented as of this encounter
--- OUTSIDE RECORDS SUMMARY | 2025-02-28 08:19 | XMS_ITS | Encounter Summary ---
Author Organization [facility] Address [address] [place] [address] Phone Care Team Providers Care Calendering Supervisor Name Role Phone Demarco Graves MD Primary Care Provider [phone] Encounter Details Date Type Department Care Team (Late st Contact Info) Description 09/14/2024 Scanned Document [facility] [address] [place] [phone] Scanning, Generic Provider Social History Tobacco Use [...] suspected to have Coronavirus/COVID-19? No / Unsure 09/15/2024 12:13 PM EST documented as of this encounter Plan of Treatment Upcoming Encounters Date Type Department Care Team (Late st Contact Info) Description 04/08/2025 10:45 AM EDT Appointment [address] [place] [phone] 10/11/2025 10:10 AM EST Office Visit [address] [place] [phone] Víctor Jones MD [address] [facility] [address] [place] [address] documented as of this encounter Procedures Procedure Name Priority Date/Time Associated Diagnosis Comments OUTSIDE LAB SCAN 09/14/2024 documented in this encounter Results * OUTSIDE LAB SCAN (09/14/2024) Narrative 09/14/2024 Ordered by an unspecified provider. us Generic Provider Scanning OUTSIDE SCAN Final Result documented in this encounter Visit Diagnoses Not on filedocumented in this encounter Additional Health Concerns Assessment Noted Time A fall risk assessment has been complete d for the patient 07/16/2024 2:47 PM EST documented as of this encounter Care Teams Calendering Supervisor Relationship Specialty Start Date End Date Demarco Graves MD [address] [place] [address] PCP - General Family Medicine 01/12/24 documented as of this encounter
--- OUTSIDE RECORDS SUMMARY | 2025-02-28 08:19 | XMS_ITS | Encounter Summary ---
Author Organization [facility] Address [address] [place] [address] Phone Care Team Providers Care Strategic Business Development Name Role Phone Demarco Graves MD Primary Care Provider [phone] Encounter Details Date Type Department Care Team (Late Contact Info) Description 10/19/2024 Scanned Document [facility] [address] [place] [phone] Scanning, Generic Provider Social History Tobacco Use [...] Info) Description 04/08/2025 10:45 AM EDT Appointment [address] [place] [phone] 10/11/2025 10:10 AM EST Office Visit [address] [place] [phone] Víctor Jones MD [address] [facility] [address] [place] [address] documented as of this encounter Procedures Procedure Name Priority Date/Time Associated Diagnosis Comments OUTSIDE LAB SCAN 10/19/2024 documented in this encounter Results * OUTSIDE LAB SCAN (10/19/2024) Narrative 10/19/2024 Ordered by an unspecified provider. us Generic Provider Scanning OUTSIDE SCAN Final Result documented in this encounter Visit Diagnoses Not on filedocumented in this encounter Additional Health Concerns Assessment Noted Time A fall risk assessment has been complete d for the patient 07/16/2024 2:47 PM EST documented as of this encounter Care Teams Strategic Business Development Relationship Specialty Start Date End Date Demarco Graves MD [address] [place] [address] PCP - General Family Medicine 01/12/24 documented as of this encounter
--- OUTSIDE RECORDS SUMMARY | 2025-02-28 08:19 | XMS_ITS | Encounter Summary ---
Author Organization [facility] Address [address] [place] [address] Phone Care Team Providers Care Nurse Chemical Dependency Name Role Phone Demarco Graves MD Primary Care Provider [phone] Encounter Details Date Type Department Care Team (Late st Contact Info) Description 12/22/2024 Scanned Document [facility] [address] [place] [phone] Scanning, Generic Provider Social History Tobacco Use [...] Info) Description 04/08/2025 10:45 AM EDT Appointment [place] [address] [place] [phone] 10/11/2025 10:10 AM EST Office Visit [address] [place] [phone] Víctor Jones MD [address] [facility] [address] [place] [address] documented as of this encounter Procedures Procedure Name Priority Date/Time Associated Diagnosis Comments OUTSIDE LAB SCAN 12/22/2024 documented in this encounter Results * OUTSIDE LAB SCAN (12/22/2024) Narrative 12/22/2024 Ordered by an unspecified provider. us Generic Provider Scanning OUTSIDE SCAN Final Result documented in this encounter Visit Diagnoses Not on filedocumented in this encounter Additional Health Concerns Assessment Noted Time A fall risk assessment has been complete d for the patient 07/16/2024 2:47 PM EST documented as of this encounter Care Teams Nurse Chemical Dependency Relationship Specialty Start Date End Date Demarco Graves MD [address] [place] [address] PCP - General Family Medicine 01/12/24 documented as of this encounter
--- OUTSIDE RECORDS SUMMARY | 2025-02-28 08:19 | XMS_ITS | Encounter Summary ---
Author Organization [facility] Address [address] [place] [address] Phone Care Team Providers Care Towerman Name Role Phone Demarco Graves MD Primary Care Provider [phone] Encounter Details Date Type Department Care Team (Late st Contact Info) Description 08/28/2024 Scanned Document [facility] [address] [place] [phone] Scanning, Generic Provider Social History Tobacco Use [...] Info) Description 04/08/2025 10:45 AM EDT Appointment [address] [place] [phone] 10/11/2025 10:10 AM EST Office Visit [address] [place] [phone] Víctor Jones MD 3 [facility] [address] [place] [address] documented as of this encounter Procedures Procedure Name Priority Date/Time Associated Diagnosis Comments OUTSIDE IMAGING SCAN 08/28/2024 documented in this encounter Results * OUTSIDE IMAGING SCAN (08/28/2024) Anatomical Region Laterality Modality Other Narrative 08/28/2024 Ordered by an unspecified provider. us Generic Provider Scanning OUTSIDE SCAN Final Result documented in this encounter Visit Diagnoses Not on filedocumented in this encounter Additional Health Concerns Assessment Noted Time A fall risk assessment has been complete d for the patient 07/16/2024 2:47 PM EST documented as of this encounter Care Teams Towerman Relationship Specialty Start Date End Date Demarco Graves MD [address] [place] [address] PCP - General Family Medicine 01/12/24 documented as of this encounter
--- OUTSIDE RECORDS SUMMARY | 2025-02-28 08:19 | XMS_ITS | Encounter Summary ---
Author Organization [facility] Address [address] [place] [address] Phone Care Team Providers Care Batch Heat Treat Operator Name Role Phone Demarco Graves MD Primary Care Provider [phone] Encounter Details Date Type Department Care Team (Late st Contact Info) Description 09/21/2024 Scanned Document [facility] [address] [place] [phone] Scanning, Generic Provider Social History Tobacco Use [...] Info) Description 04/08/2025 10:45 AM EDT Appointment [address] [place] [phone] 10/11/2025 10:10 AM EST Office Visit [address] [place] [phone] Víctor Jones MD [address] [facility] [address] [place] [address] documented as of this encounter Procedures Procedure Name Priority Date/Time Associated Diagnosis Comments OUTSIDE LAB SCAN 09/21/2024 documented in this encounter Results * OUTSIDE LAB SCAN (09/21/2024) Narrative 09/21/2024 Ordered by an unspecified provider. us Generic Provider Scanning OUTSIDE SCAN Final Result documented in this encounter Visit Diagnoses Not on filedocumented in this encounter Additional Health Concerns Assessment Noted Time A fall risk assessment has been complete d for the patient 07/16/2024 2:47 PM EST documented as of this encounter Care Teams Batch Heat Treat Operator Relationship Specialty Start Date End Date Demarco Graves MD [address] [place] [address] PCP - General Family Medicine 01/12/24 documented as of this encounter
--- OUTSIDE RECORDS SUMMARY | 2025-02-28 08:19 | XMS_ITS | Encounter Summary ---
Author Organization [facility] Address [address] [place] [address] Phone Care Team Providers Care Airborne Mission Systems Superintendent Name Role Phone Demarco Graves MD Primary Care Provider [phone] Encounter Details Date Type Department Care Team (Late Contact Info) Description 07/26/2024 Scanned Document [facility] [address] [place] [phone] Scanning, Generic Provider Social History Tobacco Use [...] suspected to have Coronavirus/COVID-19? No / Unsure 07/16/2024 2:34 PM EST documented as of this encounter Plan of Treatment Upcoming Encounters Date Type Department Care Team (Late st Contact Info) Description 04/08/2025 10:45 AM EDT Appointment [address] [place] [phone] 10/11/2025 10:10 AM EST Office Visit [address] [place] [phone] Víctor Jones MD [address] [facility] [address] [place] [address] documented as of this encounter Procedures Procedure Name Priority Date/Time Associated Diagnosis Comments OUTSIDE LAB SCAN 07/26/2024 OUTSIDE LAB SCAN 07/26/2024 documented in this encounter Results * OUTSIDE LAB SCAN (07/26/2024) Narrative 07/26/2024 Ordered by an unspecified provider. us Generic Provider Scanning OUTSIDE SCAN Final Result * OUTSIDE LAB SCAN (07/26/2024) Narrative 07/26/2024 Ordered by an unspecified provider. us Generic Provider Scanning OUTSIDE SCAN Final Result documented in this encounter Visit Diagnoses Not on filedocumented in this encounter Additional Health Concerns Assessment Noted Time A fall risk assessment has been complete d for the patient 07/16/2024 2:47 PM EST documented as of this encounter Care Teams Airborne Mission Systems Superintendent Relationship Specialty Start Date End Date Demarco Graves MD [address] [place] [address] PCP - General Family Medicine 01/12/24 documented as of this encounter
--- OUTSIDE RECORDS SUMMARY | 2025-02-28 08:20 | XMS_ITS | Clinical Summary ---
Author Organization [facility] Address [address] [place] [id number] Care Team Providers Care Rand Butting Machine Operator Name Role Phone Ashanti Meyer MD Unavailable Vasyl Covarrubias MD Unavailable [phone] Demarco Graves MD Primary Care Provider [phone] Allergies Active Allergy Reactions Criticality Noted Date Comments Rodney Inhibitors Rash,Hives 04/28/2012 Amlodipine Swelling 04/24/2022 Codeine Vomiting 04/28/2012 Hydromorphone (Bulk) Vomiting 05/12/2012 Meperidine Vomiting 07/28/2017 Morphine Vomiting 10/26/2023 Gabapentin Mental Status Change 10/26/2023 Medications amiodarone (PACERONE) 200 mg tablet Take a half tablet by mouth once daily. 30 tablet 2 12/03/2023 3:31 PM EDT 4 Active aspirin 81 mg chewable tablet Take 1 tablet by mouth once daily for 6 doses. Patient should start on December 04, 2023. 6 tablet 12/03/2023 3:31 PM EDT 4 Active Additional Information Patient not taking.Reason: Other, Reported on 12/23/2023 atorvastatin (LIPITOR) 40 mg tablet Take 1 tablet by mouth once daily. 60 tablet 2 12/03/2023 3:31 PM EDT 4 Active apixaban (ELIQUIS) 5 mg tab(s) Take 1 tablet by mouth two times a day. 120 tablet 2 12/03/2023 3:31 PM EDT 4 Active escitalopram oxalate (LEXAPRO) 10 mg tablet Take 1 tablet by mouth once daily. 60 tablet 2 12/03/2023 3:31 PM EDT 4 Active hydrALAZINE (APRESOLINE) 25 mg tablet Take 1 tablet by mouth two times a day. 180 tablet 12/03/2023 3:31 PM EDT 4 Active isosorbide mononitrate ER (IMDUR) 30 mg 24 hr tablet Take 1 tablet by mouth once daily. 60 tablet 2 12/03/2023 3:31 PM EDT 4 Active liothyronine (CYTOMEL) 5 mcg tablet Take 1 tablet by mouth daily before breakfast. 60 tablet 2 12/03/2023 3:31 PM EDT [address] (PROTONIX) 40 mg tablet Take 1 tablet by mouth once daily. 60 tablet 2 12/03/2023 3:31 PM EDT 4 Active clopidogrel (PLAVIX) 75 mg tablet Take 1 tablet by mouth once daily. 90 tablet 2 12/03/2023 3:31 PM EDT 4 Active furosemide (LASIX) 40 mg tablet Take 1 tablet by mouth once daily as needed (for >2lb weight gain in 1 day or >5 lb in 1 week, call duralumin metalworker if taking this). 30 tablet 12/03/2023 3:31 PM EDT 4 Active Additional Information Patient not taking.Reason: Other, Reported on 12/23/2023 potassium chloride ER (KLOR-CON) 20 mEq tablet Take 1 tablet by mouth once daily as needed (take only if taking a dose of lasix for weight gain/swelling). 30 tablet 12/03/2023 3:31 PM EDT 4 Active Additional Information Patient not taking.Reason: Other, Reported on 12/23/2023 empagliflozin (JARDIANCE) 10 mg tablet Take 1 tablet by mouth daily with breakfast. 90 tablet 1 4 Active Active Problems Problem Noted Date Diagnosed Date Nonrheumatic aortic valve insufficiency 11/26/19 Pre-op exam 11/26/2023 Anticoagulation management encounter 11/26/2023 Dyspnea on exertion 11/26/2023 Atrial fibrillation, chronic 11/26/2023 NSTEMI (non-ST elevated myocardial infarction) 0 11/25/2023 HOLLY (dyspnea on exertion) 11/24/2023 Assessment & Plan (11/24/2023 8:45 PM EDT): -EKG with NSR -CXR with no acute processes, stable -BNP 251, priors 719--> 456--> 245 -BB recently discontinued 2/2 bradycardia. -Cont home lasix 20mg daily, losartan 100mg daily, amiodarone 100mg daily, imdur 30mg daily, hydralazine 25mg BID, atorvastatin 40mg nightly -Planned MVr-CABG at [facility] on 12/04, Admitted to [facility] while awaiting transfer to [facility] Stage 3 chronic kidney disease 11/24/2023 Assessment & Plan (11/24/2023 8:46 PM EDT): -1.57, baseline ~ 1.4 Chronic heart failure with preserved ejection fr action 11/24/2023 Assessment & Plan (11/24/2023 8:45 PM EDT): -EKG with NSR -CXR with no acute processes, stable -BNP 251, priors 719--> 456--> 245 -BB recently discontinued 2/2 bradycardia. -Cont home lasix 20mg daily, losartan 100mg daily, amiodarone 100mg daily, imdur 30mg daily, hydralazine 25mg BID, atorvastatin 40mg nightly -Planned MVr-CABG at [facility] on 12/04, Admitted to [facility] while awaiting transfer to [facility] 11/24/2023 Assessment & Plan (11/24/2023 8:46 PM EDT): -Cont home cytomel Anticoagulated 11/09/2023 Pseudoaneurysm of femoral artery 11/05/2023 Hematoma of right lower leg 11/05/2023 Right leg swelling 11/05/2023 Arteriovenous fistula of femoral vessels 024 Obesity, Class I, BMI 30-34.9 10/30/2023 Severe mitral regurgitation 10/27/2023 Assessment & Plan (11/24/2023 8:45 PM EDT): -EKG with NSR -CXR with no acute processes, stable -BNP 251, priors 719--> 456--> 245 -BB recently discontinued 2/2 bradycardia. -Cont home lasix 20mg daily, losartan 100mg daily, amiodarone 100mg daily, imdur 30mg daily, hydralazine 25mg BID, atorvastatin 40mg nightly -Planned MVr-CABG at [facility] on 12/04, Admitted to [facility] while [facility] Assessment & Plan (11/02/2023 11:26 AM EDT): - Per outpatient [facility] records h/o moderate-severe MR - Presents with worsening SOB, primarily on minimal exertion - Not in acute CHF - Patient's shortness of breath improved with supplemental - Cardiology following; left and right heart cath completed on 10/30 - consider repeat VIOLA - Request made for OSH [place] ([place]) for Cardiology to evaluate. - Losartan on hold due to LAY - restart at discharge - Hold Lasix while inpatient - restart at discharge - Has appointment scheduled 11/21/[address] Hermosillo to evaluate for MVR LAY (acute kidney injury) 10/27/2023 Assessment & Plan (11/02/2023 11:27 AM EDT): - Mild LAY on ?CKD 2/3 - sCR 1.6; baseline 1.2-1.3 - sCR improved to 1.5 (10/27) - Renal Ultrasound normal - Holding Losartan while inpatient - Nephrology c/s for LAY on CKD III - resume lasix on 10/30 - continue that dose on discharge - f/u renal clinic after discharge and consider resumption of cozaar as outpatient Mitral valve insufficiency 10/27/2023 Atrial fibrillation 10/27/2023 Assessment & Plan (11/24/2023 8:45 PM EDT): -EKG with NSR -CXR with no acute processes, stable -BNP 251, priors 719--> 456--> 245 -BB recently discontinued 2/2 bradycardia. -Cont home lasix 20mg daily, losartan 100mg daily, amiodarone 100mg daily, imdur 30mg daily, hydralazine 25mg BID, atorvastatin 40mg nightly -Planned MVr-CABG at [facility] on 12/04, Admitted to [facility] while [facility] Assessment & Plan (11/02/2023 11:28 AM EDT): - Recent diagnosis as of Sep 2023 - d/c Amiodarone and metoprolol as per Cardiology - c/w Eliquis - Telemetry - TSH is 4.7, patient is on levothyroxine - f/u as outpatient Atrial fibrillation, paroxysmal 09/11/2023 Chronic anticoagulation 09/11/2023 Overview (05/02/2024): Started 09/2023 Depression 04/24/2022 Assessment & Plan (11/24/2023 8:46 PM EDT): -Cont home lexapro Assessment & Plan (04/24/2022 12:19 PM EDT): Assessment: Stable on effexor Anxiety 04/24/2022 Assessment & Plan (11/24/2023 8:46 PM EDT): -Cont home lexapro Assessment & Plan (04/24/2022 12:19 PM EDT): Assessment: Stable on Effexor CAD (coronary artery disease) 04/24/2022 Assessment & Plan (11/24/2023 8:45 PM EDT): -EKG with NSR -CXR with no acute processes, stable -BNP 251, priors 719--> 456--> 245 -BB recently discontinued 2/2 bradycardia. -Cont home lasix 20mg daily, losartan 100mg daily, amiodarone 100mg daily, imdur 30mg daily, hydralazine 25mg BID, atorvastatin 40mg nightly -Planned MVr-CABG at [facility] on 12/04, Admitted to [facility] while [facility] Assessment & Plan (10/28/2023 3:17 PM EDT): - s/p BRITTNEY to LAD and RCA in 2019 - No chest pain - Continue ASA, Statin, Imdur - Not on BB d/t fatigue and bradycardia - Continue telemetry - Cardiology following Assessment & Plan (04/24/2022 12:24 PM EDT): Assessment: Stable Cardiac stents x 2 Both on different occasions in 2019 Placed in [facility] Follows with Cardiology [place] On ASA and Statin HTN (hypertension) 02/22/2019 Assessment & Plan (11/24/2023 8:45 PM EDT): -EKG with NSR -CXR with no acute processes, stable -BNP 251, priors 719--> 456--> 245 -BB recently discontinued 2/2 bradycardia. -Cont home lasix 20mg daily, losartan 100mg daily, amiodarone 100mg daily, imdur 30mg daily, hydralazine 25mg BID, atorvastatin 40mg nightly -Planned MVr-CABG at [facility] on 12/04, Admitted to [facility] while [facility] Assessment & Plan (04/24/2022 12:20 PM EDT): Assessment: Stable on medication Hyperlipidemia 02/22/2019 Assessment & Plan (11/24/2023 8:45 PM EDT): -EKG with NSR -CXR with no acute processes, stable -BNP 251, priors 719--> 456--> 245 -BB recently discontinued 2/2 bradycardia. -Cont home lasix 20mg daily, losartan 100mg daily, amiodarone 100mg daily, imdur 30mg daily, hydralazine 25mg BID, atorvastatin 40mg nightly -Planned MVr-CABG at [facility] on 12/04, Admitted to [facility] while [facility] Assessment & Plan (04/24/2022 12:21 PM EDT): Assessment: Stable on statin Acid reflux 02/22/2019 Assessment & Plan (11/24/2023 8:46 PM EDT): -Cont home PPI Assessment & Plan (04/24/2022 12:20 PM EDT): Assessment: Controlled with pantoprazole Chronic bilateral low back pain without sciatica 06/14/2016 Overview (06/20/2016): Plan of 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 [...] the left), minimal disc space narrowing X 2015 Lumbar spine MRI: Imaging independendently viewed, agree [...] Pain medicine consultation if non-operative care chosen Knee pain 06/04/2012 Immunizations Immunization Administration Dates Next Due influenza vaccine, unspecified formulation 05/30 pneumococcal polysaccharide (PPV23) vaccine, 23 valent (PNEUMOVAX 23) 05/30/2012 Family History Medical History Relation Comments Coronary Artery Disease Father Heart Attack Father Cancer Mother Relation Status Comments Father Mother Social History Tobacco Use Types Packs/Day Years Used Date Smoking Tobacco: Former Cigarettes 0.7 4 0 04/28/1986 - 04/28/1990 Smokeless Tobacco: Never Tobacco Cessation:Counseling Given: Not Answered Alcohol Use Standard Drinks/Week Comments No 0 (1 standard drink = 0.6 oz pur e alcohol) [facility] Utilities Answer Date Recorded In the [...] place to sleep or slept in a senior care (including now)? No 11/28/2023 Area Deprivation Index Answer Date Pb rded National Score (1-100), lower number is lower ri sk 80 12/03/2023 State Score (1-10), lower number is lower risk 7 12/03/2023 Data from: https://www.neighborhoodatlas.medicine.[facility].edu/. Last address used for calculation [address] 12/03/2023 Comments No Sex and Gender Information Value Date Recorded Sex Assigned at Not on file Legal Sex Female 10:17 AM EST Gender Identity Not on file Sexual Orientation Not on file Last Filed Vital Signs Vital Sign Reading Time Taken Comments Blood Pressure 126/74 12/23/2023 10:13 AM EDT Pulse 67 12/23/2023 10:13 AM EDT Temperature 36.8 C (98.2 F) 12/03/2023 1:38 PM EDT Respiratory Rate 16 12/23/2023 10:13 AM EDT Oxygen Saturation 96% 12/23/2023 10:13 AM EDT Inhaled Oxygen Concentration - - Weight 79.8 kg (176 lb) 12/23/2023 10:13 AM EDT Height 162.6 cm (5' 4 ) 11/24/2023 7:56 PM EDT Body Mass Index 30.21 11/24/2023 7:56 PM EDT Plan of Treatment Health Maintenance Due Date Last Done Comments Annual PCP Team Chronic Dise ase Visit 01/22/1964 DTaP,Tdap,Td Vaccine (1 - Tdap) 1965 Shingrix Vaccine (1 of 2) 01/22/1996 Bone Density Screening 2011 Medicare Annual Wellness Visit 08/12/2015 RSV Vaccine (1 - 1-dose 75+ series) 2021 Covid-19 Vaccine ( - 2023-2 5 season) 2024 03/08/2022, 10/02/2020, 09/11/2020 Pneumococcal Vaccine: 50+ (2 of 2 - PCV) 06/20/2024 06/20/2023, 05/28/2017, 05/30/2012 Advance Directive Discussion 08/11/2024 LDL Cholesterol 10/30/2024 10/31/2023 Hemoglobin/Hematocrit 12/02/2024 12/03/2023 , 12/02/2023, 12/01/2023, Additional history exists Serum Creatinine 12/02/2024 12/03/2023, , 12/01/2023, Additional history exists Influenza Vaccine (#1) 2025 3, 07/24/2020, 05/28/2017, Additional history exists Diabetes Screening 12/02/2026 12/03/2023, 0 12/02/2023, 12/01/2023, Additional history exists Mammogram Screening Discontinued 05/11/2018, 8 Goals Goal Patient Goal Type Associated Problems Recent Progress Patient-Stated? Author Blood Pressure < 130/80 Blood Pressure 126/74(2023 10:13 AM EDT) Cece Beltran RN Medical Devices Implanted Type Area Director Of Intelligence Device Identifier Shelf Expiration Date Model / Serial / Lot Elan Bn Smpx P Radpq Fd Strl - [id number] Implanted:Qty : 2 on 05/27/2012 at [facility] Cement / Putty Right: Bone - Knee [employer] [employer] 09/27/2014 [id number] / / [id number] Bncmnt Prep Kt Plg Brs - [id number] Implanted:Qty : 1 on 05/27/2012 at [facility] Implant Left: Bone - Knee [employer] 08/27/2021 [id number] / / [id number] Description:CEMENT RESTRICTO R Lens Iol 0d +19.5 Talat Uv Abs - [id number] Implanted:Qty : 1 on 05/01/2022 by Franchesca Dumont V, MD at [facility] Intraocular Lens Left: Eye [employer] 03/25/2026 SA60WF.195 / [id number] / Description:-1.52 Lens Iol 0d +18 Talat Uv Abs - [id number] Implanted:Qty : 1 on 05/15/2022 by Franchesca Dumont V, MD at [facility] Intraocular Lens Right: Eye [employer] 11/07/2026 SA60WF.180 / [id number] / Description:-0.34 Stem Fem 50mm 12mm Elan Trthln - [id number] Implanted:Qty : 1 on 05/27/2012 at [facility] Joint - Knee Left: Bone - Knee [employer] 02/24/2017 [id number] / / [id number] Description:cemented stem Aug Tib 10mm Trthln 3 Rt - [id number] Implanted:Qty : 1 on 05/27/2012 at [facility] Joint - Knee Left: Bone - Knee [facility] [employer] 09/27/2016 [id number] / / [id number] Description:AUGMENT Comp Fem 3 Rt Kn Total Stab - [id number] Implanted:Qty : 1 on 05/27/2012 at [facility] Joint - Knee Left: Bone - Knee [facility] 04/27/2017 [id number] / / [id number] Description:TS FEMUR Ins Tib 3 13mm Kn X3 Cs Trthln - [id number] Implanted:Qty : 1 on 05/27/2012 at [facility] Joint - Knee Left: Bone - Knee [facility] [employer] 06/27/2015 [id number] / / [id number] Description:CS INSERT Comp Pat 10mm 32mm Asym Trthln - [id number] Implanted:Qty : 1 on 05/27/2012 at [facility] Joint - Patella Left: Bone - Knee [facility] [employer] 05/27/2017 [id number] / / [id number] Description:PATELLA Baseplt Tib Trthln 3 Kn Total - [id number] Implanted:Qty : 1 on 05/27/2012 at [facility] Plate Left: Bone - Knee [employer] 04/27/2017 [id number] / / [id number] Description:UNIVERSAL BASEPL ATE Procedures Procedure Name Priority Date/Time Associated Diagnosis Comments COMPLETE BLOOD COUNT Routine 12/03/2023 4:20 AM EDT COMPREHENSIVE METABOLIC PANEL Routine 12/03/2023 4:20 AM EDT LIPID PANEL, FASTING Add-on 10/31/2023 5:37 AM EDT from Last 3 Months or Most Recently Relevant to Health Maintenance Results * (ABNORMAL) COMPREHENSIVE METABOLIC PANEL (12/03/2023 4:20 AM EDT) [facility] Protein, Total 7.1 6.3 - 8.0 g/dL 12/03/2023 5:26 AM [facility] Albumin 4.3 3.9 - 4.9 g/dL 12/03/2023 5:26 AM [facility] Calcium, Total 10.3(H) 8.5 - 10.2 mg/dL 12/03/2023 5:26 AM [facility] Bilirubin, Total 0.8 0.2 - 1.3 mg/dL 12/03/2023 5:26 AM [facility] Alkaline Phosphatase 99 34 - 123 U/L 12/03/2023 5:26 AM [facility] AST 20 13 - 35 U/L 12/03/2023 5:26 AM [facility] ALT 22 7 - 38 U/L 12/03/2023 5:26 AM [facility] Glucose 105(H) 74 - 99 mg/dL 12/03/2023 5:26 AM [facility] Comment: The [place] Diabetes Association (ADA) provides guidance for cutoff [...] Standards of Medical Care in Diabetes 2016, [place] Diabetes Association. Diabetes Care. 2016.39(Suppl 1). BUN 32(H) 7 - 21 mg/dL 12/03/2023 5:26 AM [facility] Creatinine 1.83(H) 0.58 - 0.96 mg/dL 12/03/2023 5:26 AM [facility] Sodium 135(L) 136 - 144 mmol/L 12/03/2023 5:26 AM [facility] Potassium 4.3 3.7 - 5.1 mmol/L 12/03/2023 5:26 AM [facility] Chloride 99 97 - 105 mmol/L 12/03/2023 5:26 AM EDT [facility] CO2 24 22 - 30 mmol/L 12/03/2023 5:26 AM EDT [facility] Anion Gap 12 9 - 18 mmol/L 12/03/2023 5:26 AM EDT [facility] Estimated Glomerular Filtration Rate 28(L) >=60 mL/min/1. 73m 12/03/2023 5:26 AM EDT [facility] Comment:Estimated Glomerular Filtration Rate (eGFR) is calculated using the 2020 CKD-EPI creatinine equation. This equation utilizes serum creatinine, sex, and age as parameters. The creatinine assay has traceable calibration to isotope dilution- mass spectrometry. Refer to KDIGO guidelines for clinical interpretation. In patients with unstable renal function, e.g. those with acute kidney injury, the eGFR may not accurately reflect actual GFR. Blood BLOOD SPECIMEN / Unknown Venipuncture / Unknown 12/03/2023 4:20 AM EDT 12/03/2023 4:50 AM EDT us Joel Parrish MD LABORATORY Final Result [facility] [place] [address], * COMPLETE BLOOD COUNT (12/03/2023 4:20 AM EDT) WBC 6.44 3.70 - 11.00 k/uL 12/03/2023 5:06 AM EDT [facility] RBC 4.29 3.90 - 5.20 m/uL 12/03/2023 5:06 AM EDT [facility] Hemoglobin 13.4 11.5 - 15.5 g/dL 12/03/2023 5:06 AM EDT [facility] Hematocrit 40.6 36.0 - 46.0 % 12/03/2023 5:06 AM EDT [facility] MCV 94.6 80.0 - 100.0 fL 12/03/2023 5:06 AM EDT [facility] MCH 31.2 26.0 - 34.0 pg 12/03/2023 5:06 AM EDT [facility] MCHC 33.0 30.5 - 36.0 g/dL 12/03/2023 5:06 AM EDT [facility] RDW-CV 14.6 11.5 - 15.0 % 12/03/2023 5:06 AM EDT [facility] Platelet Count 166 150 - 400 k/uL 12/03/2023 5:06 AM EDT [facility] MPV 11.2 9.0 - 12.7 fL 12/03/2023 5:06 AM EDT [facility] Absolute nRBC <0.01 <0.01 k/uL 12/03/2023 5:06 AM EDT [facility] Blood BLOOD SPECIMEN / Unknown Venipuncture / Unknown 12/03/2023 4:20 AM EDT 12/03/2023 4:50 AM EDT Joel Parrish MD LABORATORY Final Result Performing Organization Address City/State/[facility] Co de Phone Number [facility] [address] [place] [address], * LIPID PANEL BASIC (10/31/2023 5:37 AM EDT) Cholesterol, Total 112 <200 mg/dL 10/31/2023 10:21 AM [facility] Comment: <200 mg/dL, Desirable 200-239 mg/dL, Borderline high >239 mg/dL, High Triglyceride 115 <150 mg/dL 10/31/2023 10:21 AM [facility] Comment: <150 mg/dL, Normal 150-199 mg/dL, Borderline high 200-499 mg/dL, High >499 mg/dL, Very high HDL Cholesterol 52 >39 mg/dL 10:21 AM [facility] Comment: 40-59 mg/dL, Acceptable >59 mg/dL, High: Negative risk factor for coronary heart disease <40 mg/dL, Low: Positive risk factor for coronary heart disease Non HDL Cholesterol 60 <130 mg/dL 10/31/2023 10:21 AM [facility] Comment: <130 mg/dL, Optimal 130-159 mg/dL, Near optimal/above optimal 160-189 mg/dL, Borderline high 190-219 mg/dL, High >219 mg/dL, Very high Secondary prevention optimal non HDL Cholesterol levels are recommended to be <100 mg/dL Fasting Time 10/31/2023 10:21 AM EDT [facility] Comment:Unknown VLDL Cholesterol 23 <30 mg/dL 10/31/19 10:21 AM EDT [facility] TC:HDL Ratio 2.15 <5.10 10/31/2023 10:21 AM EDT [facility] LDL Cholesterol, Calculated 37 <100 mg/dL 10/31/2023 10:21 AM EDT [facility] Comment: <100 mg/dL, Optimal 100-129 mg/dL, Near optimal/above optimal 130-159 mg/dL, Borderline high 160-189 mg/dL, High >189 mg/dL, Very high Secondary prevention optimal LDL Cholesterol levels are recommended to be < 70 mg/dL LDL:HDL Ratio 0.71 <2.54 10/31/2023 10:21 AM EDT [facility] Comment: Reference: 1. National Cholesterol Education Program ATP III Guideline At-A-Glance Quick Desk Reference: National Heart, Lung, and Blood [place]. National Institutes of Health. 2001: NIH Publication No. 01-3305. 2. An International Atherosclerosis Society position paper: global recommendations for the management of dyslipidemia: executive summary, Atherosclerosis. 2014: 232(2):410-413. 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 Advance Directive(s) 10/30/2023 12:47 PM Advance Directive(s) 10/27/2023 5:28 PM * Full Code (Latest Code Status on File) Date Activated Date Inactivated Comments 11/24/2023 7:22 PM 11/25/2023 9:17 PM Question Answer Comments Full Code Order Discussed With: Patient * Full Code Date Activated Date Inactivated Comments 11/05/2023 1:07 AM 11/06/2023 2:57 PM Question Answer Comments Full Code Order Discussed With: Patient * Full Code Date Activated Date Inactivated Comments 10/27/2023 12:37 AM 11/02/2023 5:12 PM Question Answer Comments Full Code Order Discussed With: Patient Care Teams Rand Butting Machine Operator Relationship Specialty Start Date End Date Demarco Graves MD [address] [facility] [place] [address] PCP - General Family Medicine 10/31/23 Ashanti Meyer MD [address] [address] Surgeon Cardiac Surg 10/31/23 [place] [address] [place], [place] [id number] Account Specialist Cardiology 10/31/23
[2025-02-28 08:39] LABS: Hematocrit 39.7 % (36.0-48.0); Hemoglobin 13.5 g/dL (12.0-16.0); Immature Granulocytes Abs Auto 0.00 10^3/uL (0.00-0.03); Immature Granulocytes Pct Auto 0.0 % (0.0-0.5); Lymphocytes Absolute Auto 2.1 10^3/uL (1.2-3.8); Mean Corpuscular HGB Conc 34.0 g/dL (29.9-35.2); Mean Corpuscular Hemoglobin 31.2 pg (26.7-34.0); Mean Corpuscular Volume 91.7 fL (81.0-99.0); Platelet Count 216 10^3/uL (150-450); Red Blood Count 4.33 10^6/uL (4.20-5.40); White Blood Count 6.8 10^3/uL (4.0-11.0)
[2025-02-28 09:47] LABS: Alanine Aminotransferase 23 U/L (14-59); Anion Gap 13.7; Aspartate Amino Transferase 20 U/L (15-37); Blood Urea Nitrogen 30.0 mg/dL (7.0-18.0); Calcium 9.3 mg/dL (8.5-10.1); Carbon Dioxide 29.4 mmol/L (21.0-32.0); Chloride 105 mmol/L (98-107); Cholesterol 117 mg/dL (<=200); Estimated GFR (African America 45 (>=60 mL/min/1.73m^2); Estimated GFR (Non-African Ame 37 (>=60 mL/min/1.73m^2); Glucose 99 mg/dL (74-106); HDL Cholesterol 50 mg/dL (40-60); Potassium 4.1 mmol/L (3.5-5.1); Sodium 144 mmol/L (136-145); Triglycerides 215 mg/dL (<=150); VLDL CHOLESTEROL 43.0 mg/dL
== END 2025-02-28 08:15 | disposition home or self-care (01) ==
LOC: LAB 08:16
PROVIDERS: PCP Family Medicine; Visit Provider Internal Medicine Cardiovascular Disease
DX: E78.5 Hyperlipidemia, unspecified (principal); I25.10 Atherosclerotic heart disease of native coronary artery without angina pectoris; I48.0 Paroxysmal atrial fibrillation
CPT/HCPCS: 36415; 80048; 80061; 84450; 84460; 85025

== ENCOUNTER 2025-03-11 00:16 | Outpatient (RCR) | payer MEDICARE, OTHER, SELFPAY | END 2025-04-07 12:46 | disposition home or self-care (01) | LOC: MM 00:16 | PROVIDERS: PCP Family Medicine; Visit Provider Internal Medicine | DX: Z51.81 Encounter for therapeutic drug level monitoring (principal); Z79.01 Long term (current) use of anticoagulants; I48.91 Unspecified atrial fibrillation ==

== ENCOUNTER 2025-04-11 01:55 | Outpatient (RCR) | payer MEDICARE, OTHER, SELFPAY | END 2025-05-10 15:13 | disposition home or self-care (01) | LOC: MM 01:55 | PROVIDERS: PCP Family Medicine; Visit Provider Internal Medicine | DX: Z51.81 Encounter for therapeutic drug level monitoring (principal); Z79.01 Long term (current) use of anticoagulants; I48.91 Unspecified atrial fibrillation | CPT/HCPCS: 85610; G0463 ==

== ENCOUNTER 2025-05-06 09:25 | Outpatient (OUT) | payer MEDICARE, OTHER, SELFPAY ==
--- OUTSIDE RECORDS SUMMARY | 2024-04-15 07:30 | XMS_ITS ---
Author Organization [facility] [place] Address [address] [place] [address] [address] [place] [address] Care Team Providers Care Ceo & Board Director Name Role Phone Demarco Graves Primary Care Provider Unavailabl e [place], Wassim Unavailable [phone] Ata Toscano MD Unavailable Unavailable REASON FOR VISIT 4 month follow up Encounters Encounter Location Date Provider Diagnosis [facility] [place] [address] [facility] [address] [place] [address] 04/15/2024 Wassim El-Hitti Plan Of Treatment No Information Progress Notes * Cece HUBBARD SDOB: [birth year] (80 yo F)Acc No.[id number]:04/15/2024 Progress Notes Patient: Cece RANKIN Provider: Tammy Zuniga MD :1945 A ge:79 Y S ex:Female Date:04/15/2024 Address:[address] [place], [id number] Pcp:Demarco Graves Subjective: * Chief Complaints: * 1 . 4 month follow up. * Medical History: Objective: * Vitals: Assessment: Plan: * Treatment: * * Electronic signature of Torey Zuniga MD on 05/06/2025 at 09:33 AM EDT Sign off status: Pending * Provider: Tammy Zuniga MD Date: 0 04/15/2024 Generated for Rocio rocha/Ruma/eTransmitting on: 0 05/06/2025 09:33 AM EDT
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
--- OUTSIDE RECORDS SUMMARY | 2025-05-06 09:32 | XMS_ITS | Encounter Summary ---
Author Organization [facility] Address [address] [place] [address] Care Team Providers Care Test Engine Evaluator Name Role Phone Ashanti Meyer MD Unavailable Vasyl Covarrubias MD Unavailable [phone] Demarco Graves MD Primary Care Provider + Mily Whiting [facility] Unavailable [phone] Vasyl Covarrubias MD Unavailable + [phone] Source Comments In the event this information is protected by the Federal Confidentiality of Alcohol and Drug AbusePatient Records regulations: The Federal rules restrict any use of the information to criminally investigate or prosecute any alcohol or drug abuse patient.[facility] Encounter Details Date Type Department Care Team (Late st Contact Info) Description 11/11/2023 Patient Msg Cardiothoracic [address] [place] [address] Provider, Ccf Please complete your Cardiac Surgery Education Social History Tobacco Use Types Packs/Day Years Used Date Smoking Tobacco: Former Cigarettes 0.7 4 0 04/28/1986 - 04/28/1990 Smokeless Tobacco: Former Alcohol Use Standard Drinks/Week Comments No 0 (1 standard drink = 0.6 oz pur e alcohol) [facility] Utilities Answer Date Recorded In the past [...] slept in a long-term (including now)? No 11/05/2023 Area Deprivation Index Answer Date Pb rded National Score (1-100), lower number is lower ri sk 80 10/27/2023 State Score (1-10), lower number is lower risk 7 10/27/2023 Data from: https://www.neighborhoodatlas.medicine.[facility].edu/. Last address used for calculation [address] 10/27/2023 Comments No Sex and Gender [...] on filedocumented in this encounter Care Teams Test Engine Evaluator Relationship Specialty Start Date End Date Demarco Graves MD [address] [place] [address] PCP - General Family Medicine 10/31/23 Ashanti Meyer MD [address] [place] [address] Surgeon Cardiac Surg 10/31/23 [place] [address] [place] [address] Vegetable Specker Cardiology 10/31/23 Mily Whiting RPh [address] [place] [address] Transitional Care Pharmacist Pharmacy 12/04/23 01/02/24 [place] [address] [place] [id number] Vegetable Specker Cardiology 12/23/23 12/23/23 documented as of this encounter
--- OUTSIDE RECORDS SUMMARY | 2025-05-06 09:32 | XMS_ITS | Encounter Summary ---
Author Organization [facility] Address [address] [place] [address] Phone Care Team Providers Care Farm Demonstrator Name Role Phone Demarco Graves MD Primary Care Provider [phone] Encounter Details Date Type Department Care Team (Late st Contact Info) Description 12/22/2024 Scanned Document [facility] [address] [place] [id number] Scanning, Generic Provider Social History Tobacco Use [...] Care Team (Late st Contact Info) Description 10/11/2025 10:10 AM EST Office Visit [facility] [address] [facility] [address] [place] [phone] Víctor Jones MD [address] [facility] [address] [place] [address] documented as of this encounter Procedures Procedure [...] documented as of this encounter Care Teams Farm Demonstrator Relationship Specialty Start Date End Date Demarco Graves MD [address] [place] [address] PCP - General Family Medicine 01/12/24 documented as of this encounter
--- OUTSIDE RECORDS SUMMARY | 2025-05-06 09:32 | XMS_ITS | Encounter Summary ---
Author Organization [facility] Address [address] [place] [address] Care Team Providers Care Specialty Molder Name Role Phone Demarco Graves MD Primary Care Provider [phone] Reason for Visit * Reason Comments Med Refill Encounter Details Date Type Department Care Team (Late st Contact Info) Description 07/15/2022 Refill [facility] Heart at [facility] [address] [place] [address] Edwin Doran MD [address] [facility] [address] [facility] [place] [address] Essential (primary) hypertension Social History [...] hypertension documented in this encounter Care Teams Specialty Molder Relationship Specialty Start Date End Date Demarco Graves MD [address] [facility] [place] [address] PCP - General 04/21/22 documented as of this encounter
--- OUTSIDE RECORDS SUMMARY | 2025-05-06 09:32 | XMS_ITS | Clinical Summary ---
Author Organization [facility] Address [address] [facility], [address] [place] [address] Care Team Providers Care Tea And Spice Supervisor Name Role Phone Demarco Graves MD Primary Care Provider [phone] Allergies Active Allergy Reactions Criticality Noted Date [...] e alcohol) rare social Social Connection and Isolation Panel Answer Date Recorded Frequency of Communication w ith Friends and Family More than three times a week 03/01/2019 Frequency of Social Gatherin gs with Friends and Family More than three times a week 03/01/2019 Attends [employer] Services Not on file 03/01 Active Member [...] on file Medical Devices Implanted Type Area Asphalt Paving Supervisor Device Identifier Shelf Expiration Date Model / Serial / Lot Graft Canc Chip 30cc [id number] - [id number] Implanted:Qt y: 1 on 02/23/2019 by Joel Hodges MD at [facility] Bone/Gra ft/Tissu e/Human/ Synth N/A: Spine Lumbar MUSCULOSKELETAL TRANSPLANT FND-PMM 12/21/2021 [id number] / [id number] / Markell-Cellular Bone Matrix 10cc - [id number] Implanted:Qt y: 1 on 02/23/2019 by Joel Hodges MD at [facility] Spine N/A: Spine Lumbar [employer]-PMM 11/10/2022 [id number] / [id number] / Sys Fix Reline 0x Conn 40 50mm 5.5lp Adj Implanted:Qt y: 1 on 02/23/2019 by Joel Hodges MD at [facility] Spine N/A: Spine Lumbar [employer]-PMM [id number] / / Screw Polyaxial Reline-O 2s 6.5x55mm Implanted:Qt y: 6 on 02/23/2019 by Joel Hodges MD at [facility] Spine N/A: Spine Lumbar [employer]-PMM [id number] / / Screw Lk Reline Opn Tulip 5.5mm Implanted:Qt y: 6 on 02/23/2019 by Joel Hodges MD at [facility] Spine N/A: Spine Lumbar [employer]-PMM [id number] / / Coalesce Lumbar Interbody Fusion System Implanted:Qt y: 1 on 02/23/2019 by Joel Hodges MD at [facility] N/A: Spine Lumbar [employer]-PMM 11/10/2019 [id number] / / [id number] Coalesce Lumbar Interbody Fusion System Implanted:Qt y: 1 on 02/23/2019 by Joel Hodges MD at [facility] N/A: Spine Lumbar [employer]-PMM 12/10/2019 [id number] / / [id number] Reline-O Ti Giovanny 5.5 X 65mm Lordotic Implanted:Qt y: 2 on 02/23/2019 by Joel Hodges MD at [facility] N/A: Spine Lumbar [employer]-PMM [id number] / [id number] / Insurance MEDICARE [employer] MEDICARE SUPP MEDICARE [employer] MEDICARE SUPP Advance Directives Documents on File Type Date Recorded Patient Founder / Ceo Expl anation ACP-Advance Directive 03/08/2019 5:39 AM * Full Code (Latest Code Status on File) Date Activated Date Inactivated Comments 02/24/2019 3:46 PM 03/05/2019 4:50 PM * Full Code Date Activated Date Inactivated Comments 02/24/2019 3:45 PM 02/24/2019 3:46 PM * Full Code Date Activated Date Inactivated Comments 02/23/2019 4:31 PM 02/24/2019 3:39 PM Care Teams Tea And Spice Supervisor Relationship Specialty Start Date End Date Demarco Graves MD [address] [place] [address] PCP - General Family Medicine 02/17/19
--- OUTSIDE RECORDS SUMMARY | 2025-05-06 09:32 | XMS_ITS | Encounter Summary ---
Author Organization [facility] Address [address] [place] [address] Care Team Providers Care Supply Analyst Name Role Phone Demarco Graves MD Primary Care Provider [phone] Reason for Visit * Reason Comments Med Refill Encounter Details Date Type Department Care Team (Late st Contact Info) Description 02/27/2023 Refill [facility] Heart at [facility] [address] [place] [address] Edwin Doran MD [address] [facility] [address] [facility] [place] [phone] Pulmonary hypertension (CMS/HCC) Social History Tobacco Use [...] diseases documented in this encounter Care Teams Supply Analyst Relationship Specialty Start Date End Date Demarco Graves MD [address] [facility] [address] PCP - General 04/21/22 documented as of this encounter
--- OUTSIDE RECORDS SUMMARY | 2025-05-06 09:32 | XMS_ITS | Encounter Summary ---
Author Organization [facility] Address [address] [place] [address] Phone Care Team Providers Care Court Attendant Name Role Phone Demarco Graves MD Primary Care Provider [phone] Encounter Details Date Type Department Care Team (Late st Contact Info) Description 11/17/2024 Scanned Document [facility] [address] [place] [phone] Scanning, Generic Provider Social History Tobacco Use [...] Description 10/11/2025 10:10 AM EST Office Visit [facility] [address] [facility] [address] [place] [phone] Víctor Jones MD [address] [facility] [address] [place] [address] documented as of this encounter Procedures Procedure [...] documented as of this encounter Care Teams Court Attendant Relationship Specialty Start Date End Date Demarco Graves MD [address] [place] [address] PCP - General Family Medicine 01/12/24 documented as of this encounter
--- OUTSIDE RECORDS SUMMARY | 2025-05-06 09:32 | XMS_ITS | Encounter Summary ---
Author Organization [facility] Address [address] [place] [address] Care Team Providers Care Paper Bundler Name Role Phone Ashanti Meyer MD Unavailable Vasyl Covarrubias MD Unavailable [phone] Demarco Graves MD Primary Care Provider + Mily Whiting [facility] Unavailable [phone] Vasyl Covarrubias MD Unavailable + [phone] Source Comments In the event this information is protected by the Federal Confidentiality of Alcohol and Drug AbusePatient Records regulations: The Federal rules restrict any use of the information to criminally investigate or prosecute any alcohol or drug abuse patient.[facility] Encounter Details Date Type Department Care Team (Late st Contact Info) Description 11/13/2023 Patient Msg Cardiothoracic [address] [place] [address] Provider, Cczohaib IMPORTANT Cardiac Surgery Information Social History Tobacco Use Types Packs/Day Years Used Date Smoking Tobacco: Former Cigarettes 0.7 4 0 04/28/1986 - 04/28/1990 Smokeless Tobacco: Former Alcohol Use Standard Drinks/Week Comments No 0 (1 standard drink = 0.6 oz pur e alcohol) [facility] Utilities Answer Date Recorded In the [...] place to sleep or slept in a intermediate (including now)? No 11/05/2023 Area Deprivation Index Answer Date Pb rded National Score (1-100), lower number is lower ri sk 80 10/27/2023 State Score (1-10), lower number is lower risk 7 10/27/2023 Data from: https://www.neighborhoodatlas.medicine.[facility].edu/. Last address used for calculation [address] 10/27/2023 Comments No Sex and Gender [...] on filedocumented in this encounter Care Teams Paper Bundler Relationship Specialty Start Date End Date Demarco Graves MD [address] [place] [address] PCP - General Family Medicine 10/31/23 Ashanti Meyer MD [address] [place] [address] Surgeon Cardiac Surg 10/31/23 [place] [address] [place] [address] Hotel Valet Attendant Cardiology 10/31/23 Mily Whiting RP [address] [place] [address] Transitional Care Pharmacist Pharmacy 12/04/23 01/02/24 [place] [address] [place] [address] Hotel Valet Attendant Cardiology 12/23/23 12/23/23 documented as of this encounter
--- OUTSIDE RECORDS SUMMARY | 2025-05-06 09:32 | XMS_ITS | Encounter Summary ---
Author Organization [facility] Address [address] [place] [address] Care Team Providers Care Ore Dressing Engineer Name Role Phone Ashanti Meyer MD Unavailable Vasyl Covarrubias MD Unavailable [phone] Demarco Graves MD Primary Care Provider +[phone] Mily Whiting [facility] Unavailable [phone] Vasyl Covarrubias MD Unavailable + [phone] Source Comments In the event this information is protected by the Federal Confidentiality of Alcohol and Drug AbusePatient Records regulations: The Federal rules restrict any use of the information to criminally investigate or prosecute any alcohol or drug abuse patient.[facility] Encounter Details Date Type Department Care Team (Latest Contact Info) Description 11/28/2023 [place] [address] Provider, Ccf Please complete Cardiovascular Surgery Questionnaire Social History Tobacco Use Types Packs/Day Years Used Date Smoking Tobacco: Former Cigarettes 0.7 4 0 04/28/1986 - 04/28/1990 Smokeless Tobacco: Never Alcohol Use Standard Drinks/Week Comments No 0 (1 standard drink = 0.6 oz pur e alcohol) [facility] Utilities Answer Date Recorded In the past 12 months has [employer], gas, oil, or water company threatened to [...] is lower risk 7 10/27/2023 Data from: https://www.neighborhoodatlas.medicine.[facility].edu/. Last address used for calculation [address] [facility] 10/27/2023 Comments No Sex and [...] on filedocumented in this encounter Care Teams Ore Dressing Engineer Relationship Specialty Start Date End Date Demarco Graves MD [address] [place], [place] [id number] PCP - General Family Medicine 10/31/23 Ashanti Meyer MD [address] [place] [address] Surgeon Cardiac Surg 10/31/23 [place] [address] [place] [id number] Plugging Machine Operator Cardiology 10/31/23 Mily Whiting [facility] [address] [place] [address] Transitional Care Pharmacist Pharmacy 12/04/23 01/02/24 [place] [address] [place] [address] Plugging Machine Operator Cardiology 12/23/23 12/23/23 documented as of this encounter
--- OUTSIDE RECORDS SUMMARY | 2025-05-06 09:32 | XMS_ITS | Encounter Summary ---
Author Organization [facility] Address [address] [place] [address] Care Team Providers Care Director Oncology Name Role Phone Ashanti Meyer MD Unavailable Vasyl Covarrubias MD Unavailable [phone] Demarco Graves MD Primary Care Provider +[phone] Mily Whiting [facility] Unavailable [phone] Vasyl Covarrubias MD Unavailable + [phone] Source Comments In the event this information is protected by the Federal Confidentiality of Alcohol and Drug AbusePatient Records regulations: The Federal rules restrict any use of the information to criminally investigate or prosecute any alcohol or drug abuse patient.[facility] Encounter Details Date Type Department Care Team (Late st Contact Info) Description 11/28/2023 [place] [address] Provider, Ccf Actionable Imaging Result Notification Patient Outreach Social History Tobacco Use Types Packs/Day Years Used Date Smoking Tobacco: Former Cigarettes 0.7 4 0 04/28/1986 - 04/28/1990 Smokeless Tobacco: Never Alcohol Use Standard Drinks/Week Comments No 0 (1 standard drink = 0.6 oz pur e alcohol) [facility] Utilities Answer Date Recorded In the [...] place to sleep or slept in a snf (including now)? No 11/28/2023 Area Deprivation Index Answer Date Pb rded National Score (1-100), lower number is lower ri sk 80 10/27/2023 State Score (1-10), lower number is lower risk 7 10/27/2023 Data from: https://www.neighborhoodatlas.medicine.[facility].edu/. Last address used for calculation [address] [...] of Assessment Author No 11/06/2023 11:53 AM iLzzy Lal RN * Do you have serious [...] on filedocumented in this encounter Care Teams Director Oncology Relationship Specialty Start Date End Date Demarco Graves MD [address] [place], [place] [id number] PCP - General Family Medicine 10/31/23 Ashanti Meyer MD [address] [place] [address] Surgeon Cardiac Surg 10/31/23 [place] [address] [place] [id number] Shrimp Peeling Machine Operator Cardiology 10/31/23 Mily Whiting [facility] [address] [place] [address] Transitional Care Pharmacist Pharmacy 12/04/23 01/02/24 [place] [address] [place] [address] Shrimp Peeling Machine Operator Cardiology 12/23/23 12/23/23 documented as of this encounter
--- OUTSIDE RECORDS SUMMARY | 2025-05-06 09:32 | XMS_ITS | Clinical Summary ---
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 Active losartan (Cozaar) 100 mg tablet Take 1 tablet by mouth in the morning. Active pantoprazole (ProtoNix) 40 mg EC tablet Take 1 tablet by mouth in the morning. Active potassium chloride CR (Klor-Con M10) 10 mEq ER tablet Take 1 tablet by mouth in the morning. Active venlafaxine XR (Effexor-XR) 75 mg 24 hr capsule Take 75 mg by mouth in the morning. 04/09/20 22 Active citalopram (CeleXA) 20 mg tablet Take 1 tablet by mouth in the morning. Active escitalopram (Lexapro) 10 mg tablet Take 10 mg by mouth in the morning. 03/21/20 23 Active meclizine (Antivert) 25 mg tablet 25 mg if needed in the morning, at noon, in the evening, and at bedtime. 03/18/20 23 Active atorvastatin (Lipitor) 40 mg tabletIndications:C oronary atherosclerosis due to calcified coronary lesion (CODE) TAKE 1 TABLET BY MOUTH EVERY DAY 90 tablet 3 04/07/20 23 Active isosorbide mononitrate ER (Imdur) 30 mg 24 hr tablet TAKE 1 TABLET BY MOUTH EVERY 24 HOURS 06/20/20 Active benzonatate (Tessalon) 200 mg capsule TAKE 1 CAPSULE BY MOUTH 3 TIMES A DAY NEEDED FOR COUGH 06/20/20 Active liothyronine (Cytomel) 5 mcg tablet Take 5 mcg by mouth in the morning. 06/20/20 Active furosemide (Lasix) 20 mg tabletIndications:P ulmonary hypertension (CMS/HCC) Take 1 tablet (20 mg) by mouth every other day. Take one tablet daily x1 week then go back to every other day 60 tablet 3 07/08/20 23 Active Additional Information Patient taking differently:20 mg oral Every other day,(No instructions reported), Reported on 09/03/2023 hydrALAZINE (Apresoline) 25 mg tabletIndications:E ssential (primary) hypertension TAKE 1 TABLET BY MOUTH IN THE MORNING AND AT BEDTIME 180 tablet 3 01/14/20 24 Active Active Problems Problem Noted Date Diagnosed Date Vertigo 07/08/2023 07/08/2023 Coronary artery disease invo lving [place] coronary artery of [place] heart without angina pectoris 07/01/2022 Primary hypertension 07/01/2022 Nonrheumatic aortic valve insufficiency 07/01/20 22 Status post insertion of drug eluting coronary a rtery stent 07/01/2022 Anxiety 04/24/2022 03/28/2023 Overview (03/28/2023): Last Assessment & Plan: Assessment: Stable on Effexor Depression 04/24/2022 03/28/2023 Overview (03/28/2023): Last Assessment & Plan: Assessment: Stable on effexor Mitral valve regurgitation 03/22/2020 Abnormal gait 02/24/2019 03/28/2023 Overview (03/28/2023): This is a 74 year old female [...] Reed. History of lumbar laminectomy 02/24/2019 Overview (03/28/2023): 2017 Hx of total knee replacement, right 02/24/2019 03/28/2023 Overview (03/28/2023): 2013 Acid reflux 02/22/2019 03/28/2023 Overview (03/28/2023): Last Assessment & Plan: Assessment: Controlled with pantoprazole Former smoker, stopped smoking in distant past 0 02/22/2019 03/28/2023 Hyperlipidemia 02/22/2019 03/28/2023 Overview (03/28/2023): Last Assessment & Plan: Assessment: Stable on statin Lumbar disc herniation 08/19/2017 3 Lumbar radiculopathy 08/19/2017 03/28/2023 Chronic bilateral low back pain without sciatica 06/14/2016 03/28/2023 Overview (03/28/2023): Plan of 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 [...] if non-operative care chosen Knee pain 06/04/2012 03/28/2023 Encounters Date Type Department Care Team Description 04/21/[address] [address] Kait Robles MA 04/21/[address] [address] Edwin Doran MD Essential (primary) hypertension 04/18/2025 Refill [facility] [address] [facility] [place] [address] Edwin Doran MD Essential (primary) hypertension 04/16/2025 Refill [facility] [address] [facility] [place] [address] Edwin Doran MD Essential (primary) hypertension from Last 3 Months Immunizations Immunization Administration Dates Next Due Influenza, Seasonal, Quadrivalent, Adjuvanted Influenza, Unspecified 05/30/2012 Influenza, injectable, quadrivalent, preservativ e free 05/28/2017 Influenza, trivalent, adjuvanted 07/24/2020 Pfizer SARS-CoV-2 Vaccination 03/08/2022 Pneumococcal Polysaccharide PPV23 05/28/2017, Unspecified Sars-Cov-2 Vaccination 10/02/2020, Family History Medical History Relation Name Comments Coronary artery disease Father Hypertension Father Relation Name Status Comments Father Social History Tobacco Use Types Packs/Day Years Used Date Smoking Tobacco: Former Cigarettes Q uit: 1989 Smokeless Tobacco: Never Tobacco Cessation:Counseling Given: Not Answered Alcohol Use Standard Drinks/Week Comments Yes 0 (1 standard drink = 0.6 oz pur e alcohol) occasional [place] Safety & Environment Answer Date Rec orded Fear of Current or Ex-Partner Not on file Emotionally Abused Not on file 10/02/2023 Physically Abused Not on file 10/02/2023 Sexually Abused Not on file 10/02/2023 Physically or Sexually Abused Not on file Comments Unknown Sex and Gender Information Value Date Recorded Sex Assigned at Not on file Legal Sex Female 10:05 PM EDT Gender Identity Not on file Sexual Orientation Not on file Last Filed Vital Signs Vital Sign Reading Time Taken Comments Blood Pressure 102/64 09/03/2023 2:42 PM EST Pulse 92 09/03/2023 2:42 PM EST Temperature - - Respiratory Rate 14 08/06/2023 11:59 AM EST Oxygen Saturation 97% 09/03/2023 2:42 PM EST Inhaled Oxygen Concentration - - Weight 83.9 kg (185 lb) 09/03/2023 2:42 PM EST Height 165.1 cm (5' 5 ) 09/03/2023 2:42 PM EST Body Mass Index 30.79 09/03/2023 2:42 PM EST Plan of Treatment Health Maintenance Due Date Last Done Comments Medicare Annual Wellness (AWV) 1945 Depression Screening 1958 Adult Tetanus 01/22/1968 Zoster Vaccines (1 of 2) 01/22/1996 Fall Risk Screening 2011 Pneumococcal Vaccine: 50+ Years (2 of 2 - PCV) 05/28/2018 05/28/2017, 05/30/2012 COVID-19 Vaccine ( season) 2025 03/08/2022, 10/02/2020, 10/02/2020, Additional history exists Influenza Vaccine (#1) 2025 , 07/24/2020, 05/28/2017, Additional history exists HIB Vaccines Aged Out No longer eligi ble based on patient's age to complete this topic HPV Vaccines Aged Out No longer eligi ble based on patient's age to complete this topic IPV Vaccines Aged Out No longer eligi ble based on patient's age to complete this topic Meningococcal B Vaccine Aged Out No l onger eligible based on patient's age to complete this topic Meningococcal Vaccine Aged Out No anselmo jack eligible based on patient's age to complete this topic Rotavirus Vaccines Aged Out No longer eligible based on patient's age to complete this topic [place] [address] MEDICARE Member Subscriber Plan / Payer (Ef fective 2011-Present) Name:Cece Hubbard Member ID:[id number] Relation to Subscriber:Self Name:Cece Hubbard Subscriber ID:[id number] Payer ID:[id number] Group ID:Not on file Type:Medicare Address: [facility] [place] [id number] [employer] Care Teams 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
--- OUTSIDE RECORDS SUMMARY | 2025-05-06 09:32 | XMS_ITS | Encounter Summary ---
Author Organization [facility] Address [address] [place] [address] Care Team Providers Care Medical Assistant Secretary Name Role Phone Ashanti Meyer MD Unavailable Vasyl Covarrubias MD Unavailable [phone] Demarco Graves MD Primary Care Provider [phone] Mily Whiting [facility] Unavailable [phone] Vasyl Covarrubias MD Unavailable [phone] Source Comments In the event this information is protected by the Federal Confidentiality of Alcohol and Drug AbusePatient Records regulations: The Federal rules restrict any use of the information to criminally investigate or prosecute any alcohol or drug abuse patient.[facility] Encounter Details Date Type Department Care Team (Late st Contact Info) Description 11/28/2023 Patient Msg Cardiology [address] [place] [address] Provider, [facility] Welcome to [facility] - Your upcoming valve surgery Social History Tobacco Use Types Packs/Day Years Used Date Smoking Tobacco: Former Cigarettes 0.7 4 0 04/28/1986 - 04/28/1990 Smokeless Tobacco: Never Alcohol Use Standard Drinks/Week Comments No 0 (1 standard drink = 0.6 oz pur e alcohol) [facility] Utilities Answer Date Recorded In [...] place to sleep or slept in a long term (including now)? No 11/28/2023 Area Deprivation Index Answer Date Pb rded National Score (1-100), lower number is lower ri sk 80 10/27/2023 State Score (1-10), lower number is lower risk 7 10/27/2023 Data from: https://www.neighborhoodatlas.medicine.[facility].edu/. Last address used for calculation [address] 10/27/2023 Comments No Sex and [...] on filedocumented in this encounter Care Teams Medical Assistant Secretary Relationship Specialty Start Date End Date Demarco Graves MD [address] [place] [address] PCP - General Family Medicine 10/31/23 Ashanti Meyer MD [address] [place] [address] Surgeon Cardiac Surg 10/31/23 [place] [address] [place] [id number] Security Guards Dispatcher Cardiology 10/31/23 Mily Whiting [facility] [address] [place] [id number] Transitional Care Pharmacist Pharmacy 12/04/23 01/02/24 [place] [address] [place] [id number] Security Guards Dispatcher Cardiology 12/23/23 12/23/23 documented as of this encounter
--- OUTSIDE RECORDS SUMMARY | 2025-05-06 09:32 | XMS_ITS | Clinical Summary ---
Author Organization [facility] Address [address] [place] [address] Phone Care Team Providers Care Single Wire Saw Operator Name Role Phone Demarco Graves MD Primary Care Provider [phone] Allergies Active Allergy Reactions Criticality Noted Date [...] not crush, chew, or split. Active vit C/E/zinc/lutein/z eaxanthin ([facility] ORAL) Take 1 capsule by mouth once daily. Active clopidogrel (Plavix) 75 mg tabletIndications :Coronary artery disease, unspecified vessel or lesion type, unspecified whether angina present, unspecified whether [place] or transplanted heart Take 1 tablet (75 mg) by mouth once daily. 90 tablet 3 4 07/16/20 25 Active warfarin (Coumadin) 5 mg tablet Take 1 tablet (5 mg) by mouth. Take as directed by [facility] Active nebivolol (Bystolic) 5 mg [...] once daily. Active furosemide (Lasix) 40 mg tabletIndications :Diastolic dysfunction,Parox ysmal atrial fibrillation (Multi) Take 1 tablet (40 mg) by mouth once daily. 90 tablet 3 5 11/03/19 26 Active albuterol 90 mcg/actuation inhaler Inhale 2 puffs every 6 hours if needed for wheezing. Active medical cannabis Take by mouth. cream Active potassium chloride ER (Micro-K) 10 mEq ER capsuleIndication s:Paroxysmal atrial fibrillation (Multi),High risk medication use Take 1 capsule (10 mEq) by mouth once daily. Do not crush or chew. 90 capsule 3 5 02/25/20 26 Active Active Problems Problem Noted Date Diagnosed Date Mixed hyperlipidemia 07/16/2024 High risk medication use 01/12/2024 CAD (coronary artery disease) 01/12/2024 Paroxysmal atrial fibrillation (Multi) 4 History of PTCA 01/12/2024 Hyperlipidemia 01/12/2024 Diastolic dysfunction 01/12/2024 Aortic regurgitation 01/12/2024 Mitral valve regurgitation 01/12/2024 CKD (chronic kidney disease) stage 3, GFR 30-59 ml/min 01/12/2024 BMI 31.0-31.9,adult 01/12/2024 Former smoker 01/12/2024 Encounters Date Type Department Care Team Description 04/18/2025 Telephone [facility] [address] [address] Vielka Hatfield RN Results 04/08/2025 10:45 AM EDT - 04/08/2025 11:59 PM EDT Hospital Encounter [address] [address] Aortic valve insufficiency, etiology of cardiac valve disease unspecified; Mitral valve insufficiency, unspecified etiology; Atherosclerotic heart disease of [place] coronary artery without angina pectoris Discharge Disposition: Home 04/08/2025 Travel 03/07/[address] [address] Alison Segundo LPN 03/01/[address] [address] Vielka Hatfield RN 02/28/2025 Scanned Document [facility] [address] [place] [address] Scanning, Generic Provider 02/24/2025 10:20 AM EDT Office Visit [address] [phone] Ted Jones MD Coronary artery disease, unspecified vessel or lesion type, unspecified whether angina present, unspecified whether [place] or transplanted heart (Primary Dx); Paroxysmal atrial fibrillation (Multi); High risk medication use; Hyperlipidemia, unspecified hyperlipidemia type; Diastolic dysfunction; Aortic valve insufficiency, etiology of cardiac valve disease unspecified; Mitral valve insufficiency, unspecified etiology; Mixed hyperlipidemia; History of PTCA; BMI 31.0-31.9,adult; Former smoker; Obesity, Class I, BMI 30-34.9 02/24/2025 Travel from Last 3 Months Family History Medical [...] Sign Reading Time Taken Comments Blood Pressure 120/64 04/08/2025 10:54 AM EDT Pulse 52 02/24/2025 10:30 AM EDT Temperature - - Respiratory Rate - - Oxygen Saturation - - Inhaled Oxygen Concentration - - Weight 79.4 kg (175 lb) 04/08/2025 10:54 AM EDT Height 160 cm (5' 3 ) 04/08/2025 10:54 AM EDT Body Mass Index 31 04/08/2025 10:54 AM EDT Plan of Treatment Upcoming Encounters Date Type Department Care Team (Late st Contact Info) Description 10/11/2025 10:10 AM EST Office Visit [facility] [address] [facility] [address] [place] [address] Ted Jones MD [address] [facility] [address] [place] [address] Health Maintenance Due Date Last Done Comments Creatinine Level 1945 Lipid Panel 1945 Medicare Annual Wellness Visit (AWV) 1945 Potassium Level 1945 Diabetes Screening 01/22/1964 Hepatitis C Screening 01/22/1964 CKD: Urine Protein Screening 1965 DTaP/Tdap/Td Vaccines (1 - Tdap) 01/22/1968 Zoster Vaccines (1 of 2) 01/22/1996 Bone Density Scan 2011 RSV High Risk: (Elderly (60+) or Population) (1 - 1-dose 75+ series) 2021 Pneumococcal Vaccine (2 of 2 - PCV) 06/20/2024 06/20/2023, 05/28/2017, 05/30/2012 TSH Level 10/25/2024 10/26/2023 COVID-19 Vaccine ( - season) 2025 03/08/2022, 10/02/2020, 09/11/2020 Influenza Vaccine (#1) 2025 3, 07/24/2020, 05/28/2017, Additional history exists Echocardiogram 04/08/2026 04/08/2025 HIB Vaccines Aged Out No longer eligi [...] Procedure Name Priority Date/Time Associated Diagnosis Comments TRANSTHORACIC ECHO (TTE) COMPLETE Routine 04/08/2025 11:39 AM EDT Aortic valve insufficiency, etiology of cardiac valve disease unspecified Mitral valve insufficiency, unspecified etiology Atherosclerotic heart disease of [place] coronary artery without angina pectoris OUTSIDE LAB SCAN 02/28/2025 OUTSIDE LAB SCAN 02/28/2025 from Last 3 Months Results * TRANSTHORACIC ECHO (TTE) COMPLETE (04/08/2025 11:39 AM EDT) AV mn grad 5 mmHg SYNGO AV pk eric 1.41 m/s SYNGO LVOT diam 1.67 cm SYNGO MV E/A ratio 0.90 SYNGO Tricuspid annular plane systolic excursion 2.2 cm SYNGO MV avg E/e' ratio 15.08 SYNGO LA vol index A/L 40.8 ml/m2 SYNGO LV EF 70 % SYNGO RV free wall pk S' 15.28 cm/s SYNGO RVSP 46 mmHg SYNGO LVIDd 4.15 cm SYNGO Aortic Valve Area by Continuity of Peak Velocity 1.52 cm2 SYNGO AV pk grad 8 mmHg SYNGO Aortic Valve Area by Continuity of VTI 1.67 cm2 SYNGO LV A4C EF 56.7 SYNGO 04/08/2025 10:5 3 AM EDT Impressions SYNGO - 04/13/2025 3:34 PM EDT CONCLUSIONS: 1. Left ventricular ejection fraction is normal by visual estimate at 70%. 2. Spectral Doppler shows a Grade II (pseudonormal pattern) of left ventricular diastolic filling with an elevated left atrial pressure. 3. There is normal right ventricular global systolic function. 4. Moderate to severe mitral valve regurgitation. 5. Mild tricuspid regurgitation is visualized. 6. The Doppler estimated RVSP is mildly elevated at 46 mmHg. 7. Mild aortic valve regurgitation. 8. There is moderate concentric left ventricular hypertrophy. Narrative SYNGO - 04/13/2025 3:34 PM EDT [address], [address], [place] [address] TRANSTHORACIC ECHOCARDIOGRAM REPORT Patient Name: SON Steve HUBBARD Reading Physician: [id number] Ted Jones MD, [facility] Study Date: 04/08/2025 Ordering Provider: [id number] TED JONES MRN/PID: [id number] Fellow: Nurse: , RVT Date of /Age: 7 1945 Meeting Planner: Zaria cat [facility], RVT Gender Assigned at F Additional Staff: : Height: 160.02 cm Admit Date: Weight: 79.38 kg Admission Status: Outpatient BSA / BMI: 1.83 m2 / 31.00 Department Location: [facility] kg/m2 [place] Blood Pressure: 120 /64 mmHg Study Type: TRANSTHORACIC ECHO (TTE) COMPLETE Diagnosis/ICD: Atherosclerotic heart disease of [place] coronary artery without angina pectoris-I25.10; Nonrheumatic aortic (valve) insufficiency-I35.1 Indication: Paroxysmal Atrial Fibrillation, CAD, HTN, HLD, PTCA, Former Tobacco User, MR, CKD Stage III, Obesity CPT Codes: Echo Complete w Full Doppler-[id number] Study Detail: The following Echo studies were performed: 2D, M-Mode, Doppler and color flow. PHYSICIAN INTERPRETATION: Left Ventricle: Left ventricular ejection fraction is normal by visual estimate at 70%. There is moderate concentric left ventricular hypertrophy. There are no regional wall motion abnormalities. The left ventricular cavity size is normal. There is mildly increased posterior left ventricular wall thickness. Spectral Doppler shows a Grade II (pseudonormal pattern) of left ventricular diastolic filling with an elevated left atrial pressure. Left Atrium: The left atrial size is mildly dilated. Right Ventricle: The right ventricle is normal in size. There is normal right ventricular global systolic function. Right Atrium: The right atrial size is normal. Aortic Valve: The aortic valve appears structurally normal. The aortic valve area by VTI is 1.67 cm with a peak velocity of 1.41 m/s. The peak and mean gradients are 8 mmHg and 5 mmHg, respectively, with a dimensionless index of 0.77. There is mild to moderate aortic valve thickening. There is mild aortic valve regurgitation. Mitral Valve: The mitral valve is mildly thickened. The doppler estimated peak and mean diastolic gradients are 8 mmHg and 2 mmHg, respectively. There is moderate to severe mitral valve regurgitation. The E Vmax is 0.91 m/s. Tricuspid Valve: The tricuspid valve is structurally normal. There is mild tricuspid regurgitation. The Doppler estimated right ventricular systolic pressure (RVSP) is mildly elevated at 46 mmHg. Pulmonic Valve: The pulmonic valve is structurally normal. There is no indication of pulmonic valve regurgitation. Pericardium: No pericardial effusion noted. Aorta: The aortic root is abnormal. There is mild dilatation of the aortic root. Systemic Veins: The inferior vena cava appears normal in size, with IVC inspiratory collapse greater than 50%. In comparison to the previous echocardiogram(s): When compared to a study from 2013 mitral regurgitation has progressed from mild to nearly severe, RVSP has slightly increased, moderate concentric left ventricular hypertrophy has developed, mild aortic regurgitation is now seen. CONCLUSIONS: 1. Left ventricular ejection fraction is normal by visual estimate at 70%. 2. Spectral Doppler shows a Grade II (pseudonormal pattern) of left ventricular diastolic filling with an elevated left atrial pressure. 3. There is normal right ventricular global systolic function. 4. Moderate to severe mitral valve regurgitation. 5. Mild tricuspid regurgitation is visualized. 6. The Doppler estimated RVSP is mildly elevated at 46 mmHg. 7. Mild aortic valve regurgitation. 8. There is moderate concentric left ventricular hypertrophy. QUANTITATIVE DATA SUMMARY: 2D MEASUREMENTS: Normal Ranges: Ao Root s: 3.20 cm LAs: 4.41 cm (2.7-4.0cm) RVIDd: 2.20 cm (0.9-3.6cm) IVSd: 1.55 cm (0.6-1.1cm) LVPWd: 1.21 cm (0.6-1.1cm) LVIDd: 4.15 cm (3.9-5.9cm) LVIDs: 2.82 cm LV Mass Index: 118.1 g/m2 LV % FS 32.1 % LEFT ATRIUM: Normal Ranges: LA Vol A4C: 82.3 ml (22+/-6mL/m2) LA Vol A2C: 66.2 ml LA Vol BP: 74.6 ml LA Vol Index A4C: 45.0ml/m2 LA Vol Index A2C: 36.2 ml/m2 LA Vol Index BP: 40.8 ml/m2 LA Vol A4C: 78.2 ml LA Vol A2C: 63.4 ml LA Vol Index BSA: 38.8 ml/m2 LV SYSTOLIC FUNCTION: Normal Ranges: EF-A4C View: 57 % (>=55%) EF-Visual: 70 % LV EF Reported: 70 % LV DIASTOLIC FUNCTION: Normal Ranges: MV Peak E: 0.91 m/s (0.7-1.2 m/s) MV Peak A: 1.01 m/s (0.42-0.7 m/s) E/A Ratio: 0.90 (1.0-2.2) MV e' 0.060 m/s (>8.0) MV lateral e' 0.05 m/s MV medial e' 0.07 m/s E/e' Ratio: 15.08 (<8.0) MITRAL VALVE: Normal Ranges: MV Vmax: 1.41 m/s (<=1.3m/s) MV peak P.0 mmHg (<5mmHg) MV mean P.8 mmHg (<48mmHg) MV VTI: 44.80 cm (10-13cm) MV DT: 363 msec (150-240msec) MITRAL INSUFFICIENCY: Normal Ranges: MR Vmax: 494.50 cm/s dP/dt: 2807 mmHg/s (>1200mmHg/sec) AORTIC VALVE: Normal Ranges: AoV Vmax: 1.41 m/s (<=1.7m/s) AoV Peak P.9 mmHg (<20mmHg) AoV Mean P.5 mmHg (1.7-11.5mmHg) LVOT Max Eric: 0.98 m/s (<=1.1m/s) AoV VTI: 35.70 cm (18-25cm) LVOT VTI: 27.32 cm LVOT Diameter: 1.67 cm (1.8-2.4cm) AoV Area, VTI: 1.67 cm2 (2.5-5.5cm2) AoV Area,Vmax: 1.52 cm2 (2.5-4.5cm2) AoV Dimensionless Index: 0.77 AORTIC INSUFFICIENCY: AI Vmax: 3.53 m/s AI Half-time: 631 msec AI Decel Time: 2175 msec AI Decel Rate: 162.35 cm/s2 RIGHT VENTRICLE: RV Basal 3.42 cm RV Mid 2.10 cm RV Major 5.2 cm TAPSE: 22.4 mm RV s' 0.15 m/s TRICUSPID VALVE/RVSP: Normal Ranges: Peak TR Velocity: 3.27 m/s Est. RA Pressure: 3 mmHg RV Syst Pressure: 46 mmHg (< 30mmHg) IVC Diam: 1.88 cm PULMONIC VALVE: Normal Ranges: RVOT Vmax: 0.87 m/s (0.6-0.9m/s) AORTA: Asc Ao Diam 3.46 cm [id number] Ted Jones MD, [facility] Electronically signed on 04/13/2025 at 3:34:51 PM Final Procedure Note Ted Jones MD - 04/13/[address], [address] [place] [address] TRANSTHORACIC ECHOCARDIOGRAM REPORT Patient Name: SON Steve HUBBARD Reading Physician: [id number] Jones MD,FACC Study Date: 04/08/2025 Ordering Provider: [id number] RACHEL JONES MRN/PID: [id number] Fellow: Nurse: , RACHANA Date of /Age: 6 1945 Meeting Planner: Trip cat RDCS, RVT Gender Assigned at F Additional Staff: : Height: 160.02 cm Admit Date: Weight: 79.38 kg Admission Status: Outpatient BSA / BMI: 1.83 m2 / 31.00 Department Location: [facility] kg/[address] Blood Pressure: 120 /64 mmHg Study Type: TRANSTHORACIC ECHO (TTE) COMPLETE Diagnosis/ICD: Atherosclerotic heart disease of [place] coronary arterywithout angina pectoris-I25.10; Nonrheumatic aortic (valve) insufficiency-I35.1 Indication: Paroxysmal Atrial Fibrillation, CAD, HTN, HLD, PTCA,Former Tobacco User, MR, CKD Stage III, Obesity CPT Codes: Echo Complete w Full Doppler-[id number] Study Detail: The following Echo studies were performed: 2D, M-Mode,Doppler and color flow. PHYSICIAN INTERPRETATION: Left Ventricle: Left ventricular ejection fraction is normal by visualestimate at 70%. There is moderate concentric left ventricularhypertrophy. There are no regional wall motion abnormalities. The leftventricular cavity size is normal. There is mildly increased posteriorleft ventricular wall thickness. Spectral Doppler shows a Grade II(pseudonormal pattern) of left ventricular diastolic filling with anelevated left atrial pressure. Left Atrium: The left atrial size is mildly dilated. Right Ventricle: The right ventricle is normal in size. There is normalright ventricular global systolic function. Right Atrium: The right atrial size is normal. Aortic Valve: The aortic valve appears structurally normal. The aorticvalve area by VTI is 1.67 cm with a peak velocity of 1.41 m/s. The peakand mean gradients are 8 mmHg and 5 mmHg, respectively, with adimensionless index of 0.77. There is mild to moderate aortic valvethickening. There is mild aortic valve regurgitation. Mitral Valve: The mitral valve is mildly thickened. The doppler estimatedpeak and mean diastolic gradients are 8 mmHg and 2 mmHg, respectively.There is moderate to severe mitral valve regurgitation. The E Vmax is 0.91m/s. Tricuspid Valve: The tricuspid valve is structurally normal. There is mildtricuspid regurgitation. The Doppler estimated right ventricular systolicpressure (RVSP) is mildly elevated at 46 mmHg. Pulmonic Valve: The pulmonic valve is structurally normal. There is noindication of pulmonic valve regurgitation. Pericardium: No pericardial effusion noted. Aorta: The aortic root is abnormal. There is mild dilatation of the aorticroot. Systemic Veins: The inferior vena cava appears normal in size, with IVCinspiratory collapse greater than 50%. In comparison to the previous echocardiogram(s): When compared to a studyfrom 2013 mitral regurgitation has progressed from mild to nearly severe,RVSP has slightly increased, moderate concentric left ventricularhypertrophy has developed, mild aortic regurgitation is now seen. CONCLUSIONS: 1. Left ventricular ejection fraction is normal by visual estimate at70%. 2. Spectral Doppler shows a Grade II (pseudonormal pattern) of leftventricular diastolic filling with an elevated left atrial pressure. 3. There is normal right ventricular global systolic function. 4. Moderate to severe mitral valve regurgitation. 5. Mild tricuspid regurgitation is visualized. 6. The Doppler estimated RVSP is mildly elevated at 46 mmHg. 7. Mild aortic valve regurgitation. 8. There is moderate concentric left ventricular hypertrophy. QUANTITATIVE DATA SUMMARY: 2D MEASUREMENTS: Normal Ranges: Ao Root s: 3.20 cm LAs: 4.41 cm (2.7-4.0cm) RVIDd: 2.20 cm (0.9-3.6cm) IVSd: 1.55 cm (0.6-1.1cm) LVPWd: 1.21 cm (0.6-1.1cm) LVIDd: 4.15 cm (3.9-5.9cm) LVIDs: 2.82 cm LV Mass Index: 118.1 g/m2 LV % FS 32.1 % LEFT ATRIUM: Normal Ranges: LA Vol A4C: 82.3 ml (22+/-6mL/m2) LA Vol A2C: 66.2 ml LA Vol BP: 74.6 ml LA Vol Index A4C: 45.0ml/m2 LA Vol Index A2C: 36.2 ml/m2 LA Vol Index BP: 40.8 ml/m2 LA Vol A4C: 78.2 ml LA Vol A2C: 63.4 ml LA Vol Index BSA: 38.8 ml/m2 LV SYSTOLIC FUNCTION: Normal Ranges: EF-A4C View: 57 % (>=55%) EF-Visual: 70 % LV EF Reported: 70 % LV DIASTOLIC FUNCTION: Normal Ranges: MV Peak E: 0.91 m/s (0.7-1.2 m/s) MV Peak A: 1.01 m/s (0.42-0.7 m/s) E/A Ratio: 0.90 (1.0-2.2) MV e' 0.060 m/s (>8.0) MV lateral e' 0.05 m/s MV medial e' 0.07 m/s E/e' Ratio: 15.08 (<8.0) MITRAL VALVE: Normal Ranges: MV Vmax: 1.41 m/s (<=1.3m/s) MV peak P.0 mmHg (<5mmHg) MV mean P.8 mmHg (<48mmHg) MV VTI: 44.80 cm (10-13cm) MV DT: 363 msec (150-240msec) MITRAL INSUFFICIENCY: Normal Ranges: MR Vmax: 494.50 cm/s dP/dt: 2807 mmHg/s (>1200mmHg/sec) AORTIC VALVE: Normal Ranges: AoV Vmax: 1.41 m/s (<=1.7m/s) AoV Peak P.9 mmHg (<20mmHg) AoV Mean P.5 mmHg (1.7-11.5mmHg) LVOT Max Eric: 0.98 m/s (<=1.1m/s) AoV VTI: 35.70 cm (18-25cm) LVOT VTI: 27.32 cm LVOT Diameter: 1.67 cm (1.8-2.4cm) AoV Area, VTI: 1.67 cm2 (2.5-5.5cm2) AoV Area,Vmax: 1.52 cm2 (2.5-4.5cm2) AoV Dimensionless Index: 0.77 AORTIC INSUFFICIENCY: AI Vmax: 3.53 m/s AI Half-time: 631 msec AI Decel Time: 2175 msec AI Decel Rate: 162.35 cm/s2 RIGHT VENTRICLE: RV Basal 3.42 cm RV Mid 2.10 cm RV Major 5.2 cm TAPSE: 22.4 mm RV s' 0.15 m/s TRICUSPID VALVE/RVSP: Normal Ranges: Peak TR Velocity: 3.27 m/s Est. RA Pressure: 3 mmHg RV Syst Pressure: 46 mmHg (< 30mmHg) IVC Diam: 1.88 cm PULMONIC VALVE: Normal Ranges: RVOT Vmax: 0.87 m/s (0.6-0.9m/s) AORTA: Asc Ao Diam 3.46 cm [id number] Ted Jones MD, FACC Electronically signed on 04/13/2025 at 3:34:51 PM Final IMPRESSION: CONCLUSIONS: 1. Left ventricular ejection fraction is normal by visual estimate at70%. 2. Spectral Doppler shows a Grade II (pseudonormal pattern) of leftventricular diastolic filling with an elevated left atrial pressure. 3. There is normal right ventricular global systolic function. 4. Moderate to severe mitral valve regurgitation. 5. Mild tricuspid regurgitation is visualized. 6. The Doppler estimated RVSP is mildly elevated at 46 mmHg. 7. Mild aortic valve regurgitation. 8. There is moderate concentric left ventricular hypertrophy. us Ted Jones MD CV ECHO PROCEDURES Final Res ult SYNGO * OUTSIDE LAB SCAN (02/28/2025) Only the most recent of2 resultswithin the time period is included. Narrative 02/28/2025 Ordered by an unspecified provider. us Generic Provider Scanning OUTSIDE SCAN Final Result from Last 3 [place] [address] MEDICARE PART A AND B [facility] [place] [address] MEDICARE PART A AND B [facility] MEDICARE SUPPLEMENT Care Teams Single Wire Saw Operator Relationship Specialty Start Date End Date Dmearco Graves MD [address] [facility] [place] [address] PCP - General Family Medicine 01/12/24
--- OUTSIDE RECORDS SUMMARY | 2025-05-06 09:32 | XMS_ITS | Encounter Summary ---
Author Organization [facility] Address [address] [place] [address] Care Team Providers Care Zig Zag Stitcher Name Role Phone Demarco Graves MD Primary Care Provider [phone] Reason for Visit * Reason Comments Med Refill Encounter Details Date Type Department Care Team (Late st Contact Info) Description 11/01/2022 Refill [facility] Heart at [facility] [address] [place] [address] Edwin Doran MD [address] [facility] [address] [facility] [place] [id number] Essential (primary) hypertension Social History Tobacco Use [...] hypertension documented in this encounter Care Teams Zig Zag Stitcher Relationship Specialty Start Date End Date Demarco Graves MD [address] [facility] [address] [address] PCP - General 04/21/22 documented as of this encounter
--- OUTSIDE RECORDS SUMMARY | 2025-05-06 09:32 | XMS_ITS | Encounter Summary ---
Author Organization [facility] Address [address] [place] [address] Care Team Providers Care Cement Cutter Name Role Phone Ashanti Meyer MD Unavailable Vasyl Covarrubias MD Unavailable [phone] Demarco Graves MD Primary Care Provider [phone] Source Comments In the event this information is protected by the Federal Confidentiality of Alcohol and Drug AbusePatient Records regulations: The Federal rules restrict any use of the information to criminally investigate or prosecute any alcohol or drug abuse patient.[facility] Encounter Details Date Type Department Care Team (Late st Contact Info) Description 01/12/2024 Patient [facility] [place] [id number] Adry Harper RPh Medication Refill Past Due Social History Tobacco Use Types Packs/Day Years Used Date Smoking Tobacco: Former Cigarettes 0.7 4 0 04/28/1986 - 04/28/1990 Smokeless Tobacco: Never Alcohol Use Standard Drinks/Week Comments No 0 (1 standard drink = 0.6 oz pur e alcohol) [facility] Utilities Answer Date Recorded In [...] place to sleep or slept in a detention (including now)? No 11/28/2023 Area Deprivation Index Answer Date Pb rded National Score (1-100), lower number is lower ri sk 80 12/03/2023 State Score (1-10), lower number is lower risk 7 12/03/2023 Data from: https://www.neighborhoodatlas.medicine.[facility].edu/. Last address used for calculation [address] [...] Assessment Author No 12/03/2023 3:49 PM EDT Toyna James RN * Do you have difficulty [...] on filedocumented in this encounter Care Teams Cement Cutter Relationship Specialty Start Date End Date Demarco Graves MD [address] [place] [address] PCP - General Family Medicine 10/31/23 Ashanti Meyer MD [address] [place] [id number] Surgeon Cardiac Surg 10/31/23 [place] [address] [place] [address] Coding Coordinator Cardiology 10/31/23 documented as of this encounter
--- OUTSIDE RECORDS SUMMARY | 2025-05-06 09:33 | XMS_ITS | Encounter Summary ---
Author Organization [facility] Address [address] [place] [address] Phone Care Team Providers Care Diamond Picker Name Role Phone Demarco Graves MD Primary Care Provider [phone] Encounter Details Date Type Department Care Team (Late st Contact Info) Description 08/28/2024 Scanned Document [facility] [address] [place] [id number] Scanning, Generic Provider Social History Tobacco Use [...] Description 10/11/2025 10:10 AM EST Office Visit [facility] [address] [facility] [address] [place] [address] Víctor Jones MD [address] [facility] [address] [place] [address] documented as of this encounter Procedures Procedure [...] documented as of this encounter Care Teams Diamond Picker Relationship Specialty Start Date End Date Demarco Graves MD [address] [place] [address] PCP - General Family Medicine 01/12/24 documented as of this encounter
--- OUTSIDE RECORDS SUMMARY | 2025-05-06 09:33 | XMS_ITS | Encounter Summary ---
Author Organization [facility] Address [address] [place] [address] Phone Care Team Providers Care Hydraulic Controls Technician Name Role Phone Demarco Graves MD Primary Care Provider [phone] Encounter Details Date Type Department Care Team (Late Contact Info) Description 08/29/2024 Scanned Document [facility] [address] [place] [id number] Scanning, Generic Provider Social History Tobacco Use [...] Encounters Date Type Department Care Team (Late Contact Info) Description 10/11/2025 10:10 AM EST Office Visit [facility] 703 [facility] [address] [place] [address] Víctor Jones MD 703 [facility] [address], [address] [place] [address] documented as of this encounter Visit Diagnoses Not on filedocumented in this encounter Additional Health Concerns Assessment Noted Time A fall risk assessment has been complete d for the patient 07/16/2024 2:47 PM EST documented as of this encounter Care Teams Hydraulic Controls Technician Relationship Specialty Start Date End Date Demarco Graves MD [address] [place] [address] PCP - General Family Medicine 01/12/24 documented as of this encounter
--- OUTSIDE RECORDS SUMMARY | 2025-05-06 09:33 | XMS_ITS | Encounter Summary ---
Author Organization [facility] Address [address] [place] [address] Phone Care Team Providers Care Oral And Maxillofacial Surgery Name Role Phone Demarco Graves MD Primary Care Provider [phone] Encounter Details Date Type Department Care Team (Late Contact Info) Description 07/26/2024 Scanned Document [facility] [address] [place] [address] Scanning, Generic Provider Social History Tobacco Use [...] Description 10/11/2025 10:10 AM EST Office Visit [facility] 703 [facility] [address] [place] [address] Víctor Jones MD [address] [facility] 2, [address] [place], [place] [id number] documented as of this encounter Procedures Procedure [...] documented as of this encounter Care Teams Oral And Maxillofacial Surgery Relationship Specialty Start Date End Date Demarco Graves MD [address] [place] [address] PCP - General Family Medicine 01/12/24 documented as of this encounter
--- OUTSIDE RECORDS SUMMARY | 2025-05-06 09:33 | XMS_ITS | Encounter Summary ---
Author Organization [facility] Address [address] [place] [address] Phone Care Team Providers Care Sole Ruffer Name Role Phone Demarco Graves MD Primary Care Provider [phone] Encounter Details Date Type Department Care Team (Late Contact Info) Description 10/05/2024 Scanned Document [facility] [address] [place] [address] Scanning, Generic Provider Social History [...] Description 10/11/2025 10:10 AM EST Office Visit [facility] 703 [facility] [address] [place] [address] Víctor Jones MD 703 [facility] 2, [address] [place], [place] [id number] documented as of this encounter Procedures Procedure [...] documented as of this encounter Care Teams Sole Ruffer Relationship Specialty Start Date End Date Demarco Graves MD [address] [place] [id number] PCP - General Family Medicine 01/12/24 documented as of this encounter
--- OUTSIDE RECORDS SUMMARY | 2025-05-06 09:33 | XMS_ITS | Encounter Summary ---
Author Organization [facility] Address [address] [place] [address] Care Team Providers Care Decorating Supervisor Name Role Phone Ashanti Meyer MD Unavailable Vasyl Covarrubias MD Unavailable [phone] Demarco Graves MD Primary Care Provider [phone] Mily Whiting [facility] Unavailable [phone] Vasyl Covarrubias MD Unavailable [phone] Source Comments In the event this information is protected by the Federal Confidentiality of Alcohol and Drug AbusePatient Records regulations: The Federal rules restrict any use of the information to criminally investigate or prosecute any alcohol or drug abuse patient.[facility] Encounter Details Date Type Department Care Team (Late st Contact Info) Description 11/20/2023 [place] [address] Provider, [facility] Social History Tobacco Use Types Packs/Day Years Used Date Smoking Tobacco: Former Cigarettes 0.7 4 0 04/28/1986 - 04/28/1990 Smokeless Tobacco: Former Alcohol Use Standard Drinks/Week Comments No 0 (1 standard drink = 0.6 oz pur e alcohol) [facility] Utilities Answer Date Recorded In the past 12 months has th e electric, gas, oil, or water [employer] threatened to shut off services in your [...] risk 7 10/27/2023 Data from: https://www.neighborhoodatlas.medicine.[facility].edu/. Last address used for calculation [address] [facility] 10/27/2023 Comments No Sex and Gender [...] on filedocumented in this encounter Care Teams Decorating Supervisor Relationship Specialty Start Date End Date Demarco Graves MD [address] [place], [place] [phone] PCP - General Family Medicine 10/31/23 Ashanti Meyer MD [address] [place] [address] Surgeon Cardiac Surg 10/31/23 [place] [address] [place] [id number] [employer] Exploration Technician Cardiology 10/31/23 Mily Whiting [facility] [address] [place] [address] Transitional Care Pharmacist Pharmacy 12/04/23 01/02/24 [place] [address] [place] [address] Oil And Gas Exploration Technician Cardiology 12/23/23 12/23/23 documented as of this encounter
--- OUTSIDE RECORDS SUMMARY | 2025-05-06 09:33 | XMS_ITS | Encounter Summary ---
Author Organization [facility] Address [address] [place] [address] Phone Care Team Providers Care Global President Name Role Phone Demarco Graves MD Primary Care Provider [phone] Encounter Details Date Type Department Care Team (Late Contact Info) Description 10/19/2024 Scanned Document [facility] [address] [place] [address] Scanning, Generic Provider Social History [...] Description 10/11/2025 10:10 AM EST Office Visit [facility] 703 [facility] [address] [place] [address] Víctor Jones MD 703 [facility] 2, [address] [place], [place] [phone] documented as of this encounter Procedures Procedure [...] documented as of this encounter Care Teams Global President Relationship Specialty Start Date End Date Demarco Graves MD [address] [place] [id number] PCP - General Family Medicine 01/12/24 documented as of this encounter
--- OUTSIDE RECORDS SUMMARY | 2025-05-06 09:33 | XMS_ITS | Encounter Summary ---
Author Organization [facility] Address [address] [place] [address] Phone Care Team Providers Care Fur Finisher Tailor Name Role Phone Demarco Graves MD Primary Care Provider [phone] Encounter Details Date Type Department Care Team (Late Contact Info) Description 09/14/2024 Scanned Document [facility] [address] [place] [id number] Scanning, Generic Provider Social History Tobacco Use [...] PM EST documented as of this encounter Functional Status * BP Answer Date of Assessment Author 122/74 09/15/2024 1:49 PM EST Marylu Bee RN * Pulse Answer Date of Assessment Author 51 09/15/2024 1:49 PM EST Marylu Bee RN * Communicable Disease Screening Question Answer Date of Assessment Author Do you have any of the following new or worsening symptoms? None of these 09/15/2024 12:13 PM EST Regla Patiño M A documented as of this encounter Plan of Treatment Upcoming Encounters Date Type Department Care Team (Late st Contact Info) Description 10/11/2025 10:10 AM EST Office Visit [facility] 703 [facility] [address] [place] [address] Víctor Jones MD 703 [facility] [address], [address] [place] [address] documented as of this encounter Procedures Procedure [...] documented as of this encounter Care Teams Fur Finisher Tailor Relationship Specialty Start Date End Date Demarco Graves MD [address] [facility] [place] [address] PCP - General Family Medicine 01/12/24 documented as of this encounter
--- OUTSIDE RECORDS SUMMARY | 2025-05-06 09:33 | XMS_ITS | Encounter Summary ---
Author Organization [facility] Address [address] [place] [address] Phone Care Team Providers Care Grip Name Role Phone Demarco Graves MD Primary Care Provider [phone] Encounter Details Date Type Department Care Team (Late Contact Info) Description 09/21/2024 Scanned Document [facility] [address] [place] [address] Scanning, Generic Provider Social History [...] Description 10/11/2025 10:10 AM EST Office Visit [facility] 703 [facility] [address] [place] [address] Víctor Jones MD 703 [facility] 2, [address] [place], [place] [phone] documented as of this encounter Procedures Procedure [...] documented as of this encounter Care Teams Grip Relationship Specialty Start Date End Date Demarco Graves MD [address] [id number] PCP - General Family Medicine 01/12/24 documented as of this encounter
--- OUTSIDE RECORDS SUMMARY | 2025-05-06 09:33 | XMS_ITS | Patient Health Record ---
Author Organization [facility] [place] Address [address] [place] [address] Care Team Providers Care Art Gallery Director Name Role Phone Pablo Graves Primary Care Provider [phone] Kasisa Camron Unavailable [phone] Stefanie Vidales Unavailable [phone] Allergies Allergen (clinical drug ingredient) Drug/Non Drug Allergy documented on EMR Reaction Allergy Type Onset Date Status gabapentin Gabapentin Cognitive Impairment Drug Allergy Active angiotensin-convert ing enzyme inhibitor (FN) SERINA Inhibitors hives Drug Allergy Active amlodipine Amlodipine Swelling Drug Allergy Activ e diltiazem Diltiazem shortness of breath Drug Allergy Active metoprolol Metoprolol Circulation Issues Drug Allergy Active Results Component Value Reference Range Notes CBC AUTO DIFF Reviewed date:07/26/2024 02:21:39 PM Interpretation: Performing Lab: Notes/Report: [facility] , White Blood Count 6.2 4.0-11.0 10 [...] Performing Lab: see note ML - [facility] LB CBC AUTO DIFF Reviewed date:08/15/2024 05:48:27 PM Interpretation: Performing Lab: Notes/Report: [facility] , White Blood Count 10.5 4.0-11.0 10 [...] Performing Lab: see note ML - [facility] LB ECG 12 lead Reviewed date:08/16/2024 08:32:48 PM Interpretation: Performing Lab: Notes/Report: Source Facility: [facility]-[address] [place] [address] [place] [address] Electrocardiograph Report Signed Patient: SON HUBBARD MR#: [id number] : 1945 Acct:[id number] Age/Sex: 79 / F ADM Date: 08/14/24 Loc: ICU 275-[address]: Pat Graves M.D. Ordering Physician: Eduin Palmer D.O. 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 Signed By: 08/16/242023 DD/ 1403 TD/TT: Customer Service Cashier: CBC AUTO DIFF Reviewed date:08/23/2024 08:05:03 PM Interpretation: Performing Lab: Notes/Report: [facility] , White Blood Count 11.7 4.0-11.0 10 [...] Performing Lab: see note ML - [facility] LB PROF CHEM 8 (BAS METB) Reviewed date:08/23/2024 08:05:03 PM Interpretation: Performing Lab: Notes/Report: [facility] , Sodium 139 136-145 mmol/L Potassium 4.3 3.5-5.1 mmol/L Chloride 103 98-107 mmol/L Carbon Dioxide 26.1 21.0-32.0 mmol/L Anion Gap 14.2 Glucose 111 74-106 mg/dL Blood Urea Nitrogen 28.0 7.0-18.0 mg/dL Creatinine 1.37 0.55-1.02 mg/dL Estimated GFR ( Linh 45 >=60 mL/min/1.73m 2 Estimated GFR (Non- Colleen 37 >=60 mL/min/1.73m 2 BUN Creatinine Ratio 20.4 Calcium 9.5 8.5-10.1 mg/dL Performing Lab: see note ML - [facility] LB ECG 12 lead Reviewed date:08/24/2024 06:30:32 AM Interpretation: Performing Lab: Notes/Report: Source Facility: [place] [address] Electrocardiograph Report Signed Patient: SON HUBBARD MR#: [id number] : 1945 Acct:[id number] Age/Sex: 79 / F ADM Date: 08/23/24 Loc: ER Attending Dr: Ordering Physician: Isidra Paul M.D. 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 Signed By: 08/24/24 0554 DD/ 1311 TD/TT: Customer Service Cashier: GRISEL chest 2V Reviewed date:10/05/2024 04:13:05 PM Interpretation: Performing Lab: Notes/Report: Source Facility: [place] [address] [place] [address] XRay Report Signed Patient: SON HUBBARD MR#: [id number] : 1945 Acct:[id number] Age/Sex: 79 / F ADM Date: 10/05/24 Loc: RAD Attending Dr: Pat Graves M.D. Ordering Physician: Pat Graves M.D. Date of Service: 10/05/24 Procedure(s): XR chest 2V Accession Number(s): [id number] cc: Pat Graves M.D. [place] [address] Patient Name: SON HUBBARD MRN: [facility]:[id number] date: 1945 Sex: F Assigned Patient Location: [facility] Current Patient Location: [facility] Accession/Order Number: [id number] Exam Date: 10/05/2024 15:40 Report Date: 10/05/2024 [...] Hope Stokes M.D.10/05/2024 3:44 PM Dictation Location: [place] [address] Electronically authenticated by: [id number] Y Date: 10/05/2024 15:44 Dictated By: Hope Sotkes M.D. Signed By: 10/05/24 1546 DD/ 1544 TD/TT: Customer Service Cashier: CBC AUTO DIFF Reviewed date:10/06/2024 12:36:39 PM Interpretation: Performing Lab: Notes/Report: [facility] , White Blood Count 5.9 4.0-11.0 10 [...] 0.00-0.03 10 3/uL Performing Lab: see note - [facility] SGPT Reviewed date:02/28/2025 02:52:40 PM Interpretation: Performing Lab: Notes/Report: [facility] , Alanine Aminotransferase 23 14-59 U/L Performing Lab: see note - [facility] SGOT Reviewed date:02/28/2025 02:52:40 PM Interpretation: Performing Lab: Notes/Report: [facility] , Aspartate Amino Transferase 20 15-37 U/L Performing Lab: see note - [facility] PROF CHEM 8 (BAS METB) Reviewed date:02/28/2025 02:52:40 PM Interpretation: Performing Lab: Notes/Report: [facility] , Sodium 144 136-145 mmol/L Potassium 4.1 3.5-5.1 mmol/L Chloride 105 98-107 mmol/L Carbon Dioxide 29.4 21.0-32.0 mmol/L Anion Gap 13.7 Glucose 99 74-106 mg/dL Blood Urea Nitrogen 30.0 7.0-18.0 mg/dL Creatinine 1.38 0.55-1.02 mg/dL Estimated GFR ( Linh 45 >=60 mL/min/1.73m 2 Estimated GFR (Non- Colleen 37 >=60 mL/min/1.73m 2 BUN Creatinine Ratio 21.7 Calcium 9.3 8.5-10.1 mg/dL Performing Lab: see note ML - [facility] LB LIPID PROFILE Reviewed date:02/28/2025 02:52:40 PM Interpretation: Performing Lab: Notes/Report: [facility] , Triglycerides 215 <=150 mg/dL Cholesterol 117 <=200 mg/dL HDL Cholesterol 50 40-60 mg/dL > or =60 mg/dl - LOW CARDIOVASCULAR RISK <40 mg/dl - HIGH CARDIOVASCULAR RISK LDL Cholesterol Calculated 24.0 <100 mg/dl OPTIMAL 100-129 mg/dl NEAR OR ABOVE OPTIMAL 130-159 mg/dl BORDERLINE HIGH 160-189 mg/dl HIGH >190 mg/dl VERY HIGH VLDL CHOLESTEROL 43.0 Chol HDL Ratio 2.3 3.3 - 4.4 LOW RISK 4.4 - 7.1 AVERAGE RISK 7.1 - 11.0 MODERATE RISK >11.0 HIGH RISK Performing Lab: see note ML - [facility] LB CBC AUTO DIFF Reviewed date:02/28/2025 02:52:40 PM Interpretation: Performing Lab: Notes/Report: [facility] , White Blood Count 6.8 4.0-11.0 10 3/uL Red Blood Count 4.33 4.20-5.40 10 6/uL Hemoglobin 13.5 12.0-16.0 g/dL Hematocrit 39.7 36.0-48.0 % Mean Corpuscular Volume 91.7 81.0-99.0 fL Mean Corpuscular Hemoglobin 31.2 26.7-34.0 pg Mean Corpuscular HGB Conc 34.0 29.9-35.2 g/dL Red Cell Distribution Width 13.7 11.0-15.0 % Platelet Count 216 150-450 10 3/uL Mean Platelet Volume 10.6 9.5-13.5 fL Neutrophils Percent Auto 54.2 43.0-75.0 % Lymphocytes Percent Auto 30.4 20.5-60.0 % Monocytes Percent Auto 10.7 1.7-12.0 % Eosinophils Percent Auto 3.8 0.9-7.0 % Basophils Percent Auto 0.9 0.2-2.0 % Immature Granulocytes Pct Auto 0.0 0.0-0.5 % Neutrophils Absolute Auto 3.7 1.4-6.5 10 3/uL Lymphocytes Absolute Auto 2.1 1.2-3.8 10 3/uL Monocytes Absolute Auto 0.7 0.3-0.8 10 3/uL Eosinophils Absolute Auto 0.3 0.0-0.7 10 3/uL Basophils Absolute Auto 0.1 0.0-0.1 10 3/uL Immature Granulocytes Abs Auto 0.00 0.00-0.03 10 3/uL Performing Lab: see note - [facility] SGPT Reviewed date:10/06/2024 12:36:39 PM Interpretation: Performing Lab: Notes/Report: [facility] , Alanine Aminotransferase 18 14-59 U/L Performing Lab: see note - [facility] SGOT Reviewed date:10/06/2024 12:36:39 PM Interpretation: Performing Lab: Notes/Report: [facility] , Aspartate Amino Transferase 16 15-37 U/L Performing Lab: see note - [facility] PROF CHEM 8 (BAS METB) Reviewed date:10/06/2024 12:36:39 PM Interpretation: Performing Lab: Notes/Report: [facility] , Sodium 139 136-145 mmol/L Potassium 4.4 [...] Performing Lab: see note ML - [facility] LB LIPID PROFILE Reviewed date:10/06/2024 12:36:39 PM Interpretation: Performing Lab: Notes/Report: [facility] , Triglycerides 141 <=150 mg/dL Cholesterol 123 [...] >11.0 HIGH RISK Performing Lab: see note - [facility] CA holter monitor 7-15 days Reviewed date:08/30/2024 07:12:46 PM Interpretation: Performing Lab: Notes/Report: Source Facility: [place] [address] Cardiology Report Signed Patient: SON HUBBARD MR#: [id number] : 1945 Acct:[id number] Age/Sex: 79 / F ADM Date: 08/14/24 Loc: ICU [facility] Attending Dr: Pat Graves M.D. Ordering Physician: Pat Graves M.D. Date of Service: 08/17/24 Procedure(s): CA holter monitor 7-15 days Accession Number(s): [id number] cc: Pat Graves M.D. 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 Signed By: 08/30/24182008/30/241820 DD/ 1446 TD/TT: Customer Service Cashier: Troponin I High Sensitivity Reviewed date:08/23/2024 08:05:03 PM Interpretation: Performing Lab: Notes/Report: [facility] , Troponin I High Sensitivity 5.1 4.0-51.3 pg/m L CUT-OFF POINTS HAVE BEEN ESTABLISHED BASED ON THE FOURTH UNIVERSAL DEFINITION OF MYOCARDIAL INFARCTION. THE UPPER REFERENCE LIMIT (URL) OF TROPONIN, DEFINED THE 99TH PERCENTILE OF cTnI DISTRIBUTION IN A REFERENCE POPULATION, HAS BEEN CONFIRMED THE DECISION THRESHOLD FOR NC DIAGNOSIS. 99TH PERCENTILE = 51.4 PG/ML NOTE: HIGH-SENSITIVITY TROPONIN ASSAY IS NOT INTENDED TO BE USED IN ISOLATION BUT SHOULD BE INTERPRETED IN CONJUNCTION WITH OTHER DIAGNOSTIC AND CLINICAL INFORMATION. Performing Lab: see note ML - [facility] LB XR chest 1V Reviewed date:08/23/2024 08:05:03 PM Interpretation: Performing Lab: Notes/Report: Source Facility: [facility]-[address] [place] [address] [place] [address] XRay Report Signed Patient: SON HUBBARD MR#: [id number] : 1945 Acct:[id number] Age/Sex: 79 / F ADM Date: 08/23/24 Loc: ER Attending Dr: Ordering Physician: Isidra Paul M.D. Date of Service: 08/23/24 Procedure(s): XR chest 1V Accession Number(s): [id number] cc: Pat Graves M.D.; Isidra Paul M.D. The [address] [address] Patient Name: SON HUBBARD MRN: [id number] date: 1945 Sex: F Assigned Patient Location: ER Current Patient Location: ER Accession/Order Number: [id number] Exam Date: 08/23/2024 13:22 Report Date: 08/23/2024 [...] Dictated By: Errol Krishnamurthy M.D. Signed By: 08/23/24 1336 DD/ 1334 TD/TT: Customer Service Cashier: Troponin I High Sensitivity Reviewed date:08/23/2024 08:05:03 PM Interpretation: Performing Lab: Notes/Report: [facility] , Troponin I High Sensitivity 6.8 4.0-51.3 pg/m L CUT-OFF POINTS HAVE BEEN ESTABLISHED BASED ON THE FOURTH UNIVERSAL DEFINITION OF MYOCARDIAL INFARCTION. THE UPPER REFERENCE LIMIT (URL) OF TROPONIN, DEFINED THE 99TH PERCENTILE OF cTnI DISTRIBUTION IN A REFERENCE POPULATION, HAS BEEN CONFIRMED THE DECISION THRESHOLD FOR NC DIAGNOSIS. 99TH PERCENTILE = 51.4 PG/ML NOTE: HIGH-SENSITIVITY TROPONIN ASSAY IS NOT INTENDED TO BE USED IN ISOLATION BUT SHOULD BE INTERPRETED IN CONJUNCTION WITH OTHER DIAGNOSTIC AND CLINICAL INFORMATION. Performing Lab: see note ML - [facility] Troponin I High Sensitivity Reviewed date:08/17/2024 12:37:21 PM Interpretation: Performing Lab: Notes/Report: [facility] , Troponin I High Sensitivity 35.5 4.0-51.3 pg/m L CUT-OFF POINTS HAVE BEEN ESTABLISHED BASED ON THE FOURTH UNIVERSAL DEFINITION OF MYOCARDIAL INFARCTION. THE UPPER REFERENCE LIMIT (URL) OF TROPONIN, DEFINED THE 99TH PERCENTILE OF cTnI DISTRIBUTION IN A REFERENCE POPULATION, HAS BEEN CONFIRMED THE DECISION THRESHOLD FOR NC DIAGNOSIS. 99TH PERCENTILE = 51.4 PG/ML NOTE: HIGH-SENSITIVITY TROPONIN ASSAY IS NOT INTENDED TO BE USED IN ISOLATION BUT SHOULD BE INTERPRETED IN CONJUNCTION WITH OTHER DIAGNOSTIC AND CLINICAL INFORMATION. Performing Lab: see note ML - [facility] LB Prothrombin Time INR Reviewed date:08/17/2024 12:37:21 PM Interpretation: Performing Lab: Notes/Report: [facility] , Prothrombin Time 11.9 9.0-11.6 sec INR 1.14 DESIRED INR: 2.0-3.0 CONDITIONS NOT LISTED BELOW 2.5-3.5 FOR PROSTHETIC HEART VALVE REPLACEMENT 2.5-3.5 RECURRENT THROMBOSIS Performing Lab: see note - [facility] LB PROF 14(COMP METB) Reviewed date:08/17/2024 12:37:21 PM Interpretation: Performing Lab: Notes/Report: [facility] , Sodium 141 136-145 mmol/L Potassium 4.3 [...] 0.9 Performing Lab: see note ML - [facility] LB CBC AUTO DIFF Reviewed date:08/17/2024 12:37:21 PM Interpretation: Performing Lab: Notes/Report: [facility] , White Blood Count 5.5 4.0-11.0 10 [...] Performing Lab: see note ML - [facility] CA echo doppler complete Reviewed date:08/16/2024 08:02:33 PM Interpretation: Performing Lab: Notes/Report: Source Facility: [facility]-[address] [place] [address] [place] [address] Cardiology Report Signed Patient: SON HUBBARD MR#: [id number] : 1945 Acct:[id number] Age/Sex: 79 / F ADM Date: 08/14/24 Loc: ICU 275-[address]: Pat Graves M.D. Ordering Physician: Pat Graves M.D. Date of Service: 08/16/24 Procedure(s): CA echo doppler complete Accession Number(s): [id number] cc: Pat Graves M.D. Patient Name: SON HUBBARD MR#: [id number] : 1945 Exam Date: 08/16/2024 Ordering Doctor: [...] Area (VTI): 2.72 cm2, 2.72 cm2 Deceleration [place]: 2.27 m/s2 Pressure Half-Time: 493.96 ms Peak [...] M.D. Signed By: 08/16/241827 DD/ 26 TD/TT: Customer Service Cashier: Troponin I High Sensitivity Reviewed date:08/16/2024 01:49:36 PM Interpretation: Performing Lab: Notes/Report: [facility] , Troponin I High Sensitivity 52.5 4.0-51.3 pg/m L RESULTS CALLED TO PATITO HERRERA RN CUT-OFF POINTS HAVE BEEN ESTABLISHED BASED ON THE FOURTH UNIVERSAL DEFINITION OF MYOCARDIAL INFARCTION. THE UPPER REFERENCE LIMIT (URL) OF TROPONIN, DEFINED THE 99TH PERCENTILE OF cTnI DISTRIBUTION IN A REFERENCE POPULATION, HAS BEEN CONFIRMED THE DECISION THRESHOLD FOR NC DIAGNOSIS. 99TH PERCENTILE = 51.4 PG/ML NOTE: HIGH-SENSITIVITY TROPONIN ASSAY IS NOT INTENDED TO BE USED IN ISOLATION BUT SHOULD BE INTERPRETED IN CONJUNCTION WITH OTHER DIAGNOSTIC AND CLINICAL INFORMATION. Performing Lab: see note ML - [facility] LB Prothrombin Time INR Reviewed date:08/16/2024 01:49:36 PM Interpretation: Performing Lab: Notes/Report: [facility] , Prothrombin Time 10.2 9.0-11.6 sec INR 0.96 DESIRED INR: 2.0-3.0 CONDITIONS NOT LISTED BELOW 2.5-3.5 FOR PROSTHETIC HEART VALVE REPLACEMENT 2.5-3.5 RECURRENT THROMBOSIS Performing Lab: see note - [facility] LB PROF 14(COMP METB) Reviewed date:08/16/2024 01:49:36 PM Interpretation: Performing Lab: Notes/Report: [facility] , Sodium 140 136-145 mmol/L Potassium 4.4 [...] 0.9 Performing Lab: see note ML - [facility] LB CBC AUTO DIFF Reviewed date:08/16/2024 01:49:36 PM Interpretation: Performing Lab: Notes/Report: [facility] , White Blood Count 6.3 4.0-11.0 10 [...] Performing Lab: see note ML - [facility] LB Troponin I High Sensitivity Reviewed date:08/15/2024 05:48:27 PM Interpretation: Performing Lab: Notes/Report: [facility] , Troponin I High Sensitivity 89.3 4.0-51.3 pg/m L RESULTS CALLED TO PATITO CASANOVA RN @BY Carmelina Lemus at 1247 CUT-OFF POINTS HAVE BEEN ESTABLISHED BASED ON THE FOURTH UNIVERSAL DEFINITION OF MYOCARDIAL INFARCTION. THE UPPER REFERENCE LIMIT (URL) OF TROPONIN, DEFINED THE 99TH PERCENTILE OF cTnI DISTRIBUTION IN A REFERENCE POPULATION, HAS BEEN CONFIRMED THE DECISION THRESHOLD FOR NC DIAGNOSIS. 99TH PERCENTILE = 51.4 PG/ML NOTE: HIGH-SENSITIVITY TROPONIN ASSAY IS NOT INTENDED TO BE USED IN ISOLATION BUT SHOULD BE INTERPRETED IN CONJUNCTION WITH OTHER DIAGNOSTIC AND CLINICAL INFORMATION. Performing Lab: see note ML - [facility] LB ECG 12 lead Reviewed date:08/16/2024 08:32:48 PM Interpretation: Performing Lab: Notes/Report: Source Facility: [facility]-[address] [place] [address] [place] [address] Electrocardiograph Report Signed Patient: SON HUBBARD MR#: [id number] : 1945 Acct:[id number] Age/Sex: 79 / F ADM Date: 08/14/24 Loc: ICU [facility] Attending Dr: Pat Graves M.D. 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 Signed By: 08/16/242024 DD/ 0 TD/TT: Customer Service Cashier: Troponin I High Sensitivity Reviewed date:08/15/2024 05:48:27 PM Interpretation: Performing Lab: Notes/Report: [facility] , Troponin I High Sensitivity 116.3 4.0-51.3 pg/m L RESULTS CALLED TO PATITO CASANOVA RN @BY Carmelina Lemus at 0847 CUT-OFF POINTS HAVE BEEN ESTABLISHED BASED ON THE FOURTH UNIVERSAL DEFINITION OF MYOCARDIAL INFARCTION. THE UPPER REFERENCE LIMIT (URL) OF TROPONIN, DEFINED THE 99TH PERCENTILE OF cTnI DISTRIBUTION IN A REFERENCE POPULATION, HAS BEEN CONFIRMED THE DECISION THRESHOLD FOR NC DIAGNOSIS. 99TH PERCENTILE = 51.4 PG/ML NOTE: HIGH-SENSITIVITY TROPONIN ASSAY IS NOT INTENDED TO BE USED IN ISOLATION BUT SHOULD BE INTERPRETED IN CONJUNCTION WITH OTHER DIAGNOSTIC AND CLINICAL INFORMATION. Performing Lab: see note ML - [facility] TSH Reviewed date:08/15/2024 05:48:27 PM Interpretation: Performing Lab: Notes/Report: [facility] , Thyroid Stimulating Hormone 2.697 0.358-3.740 u IU/mL Performing Lab: see note ML - [facility] LB T4 Reviewed date:08/15/2024 05:48:27 PM Interpretation: Performing Lab: Notes/Report: [facility] , T4 Thyroxine 8.10 4.80-13.90 ug/dL Performing Lab: see note ML - [facility] LB PROF 14(COMP METB) Reviewed date:08/15/2024 05:48:27 PM Interpretation: Performing Lab: Notes/Report: [facility] , Sodium 139 136-145 mmol/L Potassium 4.2 [...] 1.0 Performing Lab: see note ML - [facility] CBC AUTO DIFF Reviewed date:08/15/2024 05:48:27 PM Interpretation: Performing Lab: Notes/Report: [facility] , White Blood Count 9.6 4.0-11.0 10 [...] Performing Lab: see note ML - [facility] XR chest 1V Reviewed date:08/15/2024 05:48:27 PM Interpretation: Performing Lab: Notes/Report: Source Facility: [facility]-[address] [place] [address] [place] [address] XRay Report Signed Patient: SON HUBBARD MR#: [id number] : 1945 Acct:[id number] Age/Sex: 79 / F ADM Date: 08/14/24 Loc: ER Attending Dr: Ordering Physician: Eduin Palmer D.O. Date of Service: 08/14/24 Procedure(s): XR chest 1V Accession Number(s): [id number] cc: Eduin Palmer D.O.; Pat Graves M.D. [place] [id number] Patient Name: SON HUBBARD MRN: [id number] date: 1945 Sex: F Assigned Patient Location: ER Current Patient Location: ER Accession/Order Number: [id number] Exam Date: 08/14/2024 14:20 Report Date: 08/14/2024 15:10 At the request of: EDUIN PALMER Procedure: XR chest 1V EXAMINATION: XR [...] Signed By: 08/14/24 1512 DD/ 1510 TD/TT: Customer Service Cashier: TSH W/ REFLEX FT4 Reviewed date:08/15/2024 05:48:27 PM Interpretation: Performing Lab: Notes/Report: [facility] , TSH W/ REFLEX FT4 1.383 0.358-3.740 uIU/mL Performing Lab: see note ML - [facility] Troponin I High Sensitivity Reviewed date:08/15/2024 05:48:27 PM Interpretation: Performing Lab: Notes/Report: [facility] , Troponin I High Sensitivity 15.7 4.0-51.3 pg/m L CUT-OFF POINTS HAVE BEEN ESTABLISHED BASED ON THE FOURTH UNIVERSAL DEFINITION OF MYOCARDIAL INFARCTION. THE UPPER REFERENCE LIMIT (URL) OF TROPONIN, DEFINED THE 99TH PERCENTILE OF cTnI DISTRIBUTION IN A REFERENCE POPULATION, HAS BEEN CONFIRMED THE DECISION THRESHOLD FOR NC DIAGNOSIS. 99TH PERCENTILE = 51.4 PG/ML NOTE: HIGH-SENSITIVITY TROPONIN ASSAY IS NOT INTENDED TO BE USED IN ISOLATION BUT SHOULD BE INTERPRETED IN CONJUNCTION WITH OTHER DIAGNOSTIC AND CLINICAL INFORMATION. Performing Lab: see note ML - [facility] UA (CLEAN or CATCH) PERSONNEL PSYCHOLOGIST or M ICRO IF IND. Reviewed date:08/15/2024 05:48:27 PM Interpretation: Performing Lab: Notes/Report: [facility] , Color Urine LT. YELLOW YELLOW Clarity Urine CLEAR CLEAR Specific [place] Urine 1.025 1.005-1.025 pH Urine 5.5 5.0-9.0 Protein Urine TRACE NEG/TRACE mg/dL Glucose Urine UA NEGATIVE NEGATIVE mg/dL Bilirubin Urine NEGATIVE NEGATIVE Ketones Urine TRACE NEGATIVE mg/dL Blood Urine NEGATIVE NEGATIVE Nitrite Urine NEGATIVE NEGATIVE Urobilinogen Urine 0.2 0.2-1.0 EU/dL Leukocyte Esterase Urine NEGATIVE NEGATIVE Urine Microscopic Indicated NO Performing Lab: see note ML - [facility] PROF 14(COMP METB) Reviewed date:08/15/2024 05:48:27 PM Interpretation: Performing Lab: Notes/Report: [facility] , Sodium 139 136-145 mmol/L Potassium 4.1 [...] 1.1 Performing Lab: see note ML - [facility] MAGNESIUM Reviewed date:08/15/2024 05:48:27 PM Interpretation: Performing Lab: Notes/Report: [facility] , Magnesium 1.7 1.8-2.4 mg/dL Performing Lab: see note - [facility] LB LACTATE or LACTIC ACID Reviewed date:08/15/2024 05:48:27 PM Interpretation: Performing Lab: Notes/Report: [facility] , Lactate/Lactic Acid 1.6 0.4-2.0 mmol/L Performing Lab: see note ML - [facility] BNP Reviewed date:08/15/2024 05:48:27 PM Interpretation: Performing Lab: Notes/Report: [facility] , NT Pro B Type Natriuretic Pept 310.0 <=1800.0 pg/mL Performing Lab: see note - [facility] SGPT Reviewed date:07/26/2024 02:21:39 PM Interpretation: Performing Lab: Notes/Report: [facility] , Alanine Aminotransferase 16 14-59 U/L Performing Lab: see note ML - [facility] LB SGOT Reviewed date:07/26/2024 02:21:39 PM Interpretation: Performing Lab: Notes/Report: [facility] , Aspartate Amino Transferase 14 15-37 U/L Performing Lab: see note - [facility] PROF CHEM 8 (BAS METB) Reviewed date:07/26/2024 02:21:39 PM Interpretation: Performing Lab: Notes/Report: [facility] , Sodium 144 136-145 mmol/L Potassium 4.2 [...] Performing Lab: see note ML - [facility] LIPID PROFILE Reviewed date:07/26/2024 02:21:39 PM Interpretation: Performing Lab: Notes/Report: [facility] , Triglycerides 89 <=150 mg/dL Cholesterol 120 [...] Performing Lab: see note ML - [facility] Reason For Referral Diagnosis 1 Pleural effusion (J9 0) Referral Organization [facility] Medicine Referring Provider First Name Pablo Referring Provider Last Name Star Referring Provider Speciality [facility] lily Referred Provider Camron Chapman Referred Provider Specialty Pulmonary Donna manzo Referral Priority Routine Medications Medication SIG (Take, Route, Frequency, Duration) Notes Start Date End Date Status Hydrocortisone 2.5 % 1 application Exter ozzy Once a day 04/21/2025 Active Isosorbide Mononitrate ER 30 MG TAKE 1 TABLET BY MOUTH EVERY 24 HOURS; Duration: 90 Active Furosemide 40 MG 1 tablet Orally Once a day 03/11/2025 Active hydrALAZINE HCl 25 MG 1 tablet with food Orally Twice a day; Duration: 30 days Active Liothyronine Sodium 5 MCG TAKE 1 TABLET BY MOUTH EVERY DAY; Duration: 90 Active Loperamide HCl 2 MG 2 capsule as needed Orally once daily 08/25/2024 Active Jardiance 10 MG 1 tablet Orally Once a day; Duration: 30 days 04/21/2025 Active Doxepin HCl 10 MG TAKE 1 CAPSULE BY [facility] EVERY DAY AT BEDTIME FOR 30 DAYS; Duration: 90 Active Potassium Chloride ER 20 MEQ 1 tablet wi th food Orally twice daily 04/21/2025 Active Escitalopram Oxalate 5 MG TAKE 1 TABLET BY MOUTH EVERY DAY FOR 30 DAYS; Duration: 90 days Active Warfarin Sodium 5 MG 1 tablet Orally Onc e a day 08/25/2024 Active Albuterol Sulfate HFA 108 (90 Base) MCG/ACT INHALE 1 PUFF INTO THE LUNGS EVERY 4 HOURS NEEDED; Duration: 30 Active Nebivolol HCl 5 MG 1 tablet Orally Once a day; Duration: 30 days 01/10/2025 Active Atorvastatin Calcium 40 MG TAKE 1 TABLET BY MOUTH EVERY DAY; Duration: 90 Active Plavix 75 MG 1 tablet Orally 2 ti mes weekly 12/19/2023 Active Social History Tobacco Use: Social History Observation Description Date Details (start date - stop date) Never Smoker NA - NA Tobacco Use/Smoking Question Answer Notes Patient is a nonsmoker Alcohol Screen (Audit-C) Question Answer Notes Did you have a drink containing alcohol in the p ast year? No Points 0 Interpretation Negative AUDIT-C (Standard) Question Answer Notes Did you have a drink containing alcohol in the p ast year? No Points 0 Interpretation Negative Problems Problem Type SNOMED Code ICD Code Onset Dates Problem Status W/U Status Risk Notes Problem Essential hypertension (31756109) Essential (primary) hypertension (I10) Active confirmed Problem Mitral valve disorder (75593519) Nonrheumatic mitral (valve) insufficiency (I34.0) Active confirmed Problem Aortic valve disorder (5772034) Nonrheumatic aortic (valve) insufficiency (I35.1) Active confirmed Problem Acute on chronic diastolic heart failure (559393567) Acute on chronic diastolic (congestive) heart failure (I50.33) Active confirmed Problem Shortness of breath (351541949) Shortness of breath (R06.02) Active confirmed Problem Chest pain (44615163) Chest pain (R07.9) Active confirmed Problem Atrial fibrillation (11302968) Atrial fibrillation (I48.91) Active confirmed Problem Mitral regurgitation (49352379) Mitral regurgitation (I34.0) Active confirmed Problem Gastroesophageal reflux disease (350516329) GERD (gastroesophageal reflux disease) (K21.9) Active confirmed Problem Dyslipidemia (535729692) Dyslipidemia (E78.5) Active confirmed Problem Atrial fibrillation (disorder) (08471161) Afib (I48.91) Active confirmed Problem Coronary artery disease (84083420) CAD (coronary artery disease) (I25.10) Active confirmed Problem Anxiety (82347325) Anxiety (F41.9) Active confi rmed Problem Tachycardia (6678511) Tachycardia (R00.0) Active confirmed Problem Coronary artery disease (88769373) Coronary artery disease (I25.10) Active confirmed Problem Hypothyroid (55356481) Hypothyroid (E03.9) Active confirmed Problem Dyspnea (251441373) Dyspnea (R06.00) Active con firmed Problem Vertigo (968665303) Vertigo (R42) Active confir med Problem Congestive heart failure (05516355) Congestive heart failure (I50.9) Active confirmed Problem Sinusitis (20794952) Sinusitis (J32.9) Active confirmed Problem Acute sinusitis (47828539) Acute sinusitis (J01.90) Active confirmed Problem Allergic conjunctivitis (670390568) Allergic conjunctivitis (H10.10) Active confirmed Problem Acquired hypothyroidism (815330886) Acquired hypothyroidism (E03.9) Active confirmed Problem Atrial fibrillation (19417873) Atrial fibrillation, unspecified (I48.91) Active confirmed Problem Atrial fibrillation (79266430) Atrial fibrillation with RVR (I48.91) Active confirmed Problem Pleural effusion (73899588) Pleural effusion (J90) Active confirmed Problem Blepharitis (00327916) Blepharitis (H01.009) Active confirmed Problem Atrial fibrillation (00580481) New onset a-fib (I48.91) Active confirmed Problem Insomnia (636642068) Insomnia, unspecified type (G47.00) Active confirmed Problem Trigeminy (12405963) Trigeminy (R00.8) Active confirmed Problem 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 confirmed Problem Essential hypertension (08738199) BP (high blood pressure) (I10) Active confirmed Problem Acute worsening of stage 3 chronic kidney disease (N18.30) Active confirmed Problem Impingement syndrome of shoulder region (688651725) Shoulder impingement (M25.819) Active confirmed Vital Signs Heart Rate 52 /min 04/21/2025 Temperature 98.7 degrees Fahrenheit 02/17/2025 Blood pressure diastolic 72 mm Hg 05/05/2025 Height 64 in 05/05/2025 Blood pressure systolic 128 mm Hg 05/05/2025 Weight 173.8 lbs 05/05/2025 BMI 29.83 kg/m2 05/05/2025 Procedures Procedure Date Ordered Date Performed Result Body Sit e CARDIO Echocardiogram 04/21/2025 N/A *CARDIO Stress Test - Lexiscan Nuclear 08/25/2024 N/A Encounters Encounter Location Date Provider Diagnosis [facility] [address] [place] [address] 07/26/2024 [place] [facility] [address] [facility] [address] 07/27/2024 Pablo Graves Acute non-recurrent sinusitis, unspecified location J01.90 [facility] [address] [place] [address] 08/01/2024 Pablo Graves [facility] [address] [place] [address] 08/06/2024 Pablo Graves [facility] [address] [place] [address] 08/17/2024 Pablo [facility] [address] [facility] [place] [address] 08/25/2024 Pablo Graves [facility] [address] [facility] [place] [address] 08/30/2024 Pablo Graves [facility] [address] [facility] [place] [address] 09/14/2024 Pablo Graves [facility] [address] [facility] [place] [address] 09/14/2024 [place] [facility] [address] [facility] [place] [address] 09/27/2024 Pablo Graves [facility] [address] [facility] [place] [address] 10/04/2024 [facility] [address] [place] [address] 10/05/2024 Pablo Graves [facility] [address] [place] [address] 10/06/2024 Pablo Graves Elevated BUN R79.9 [facility] [place] [address] [facility] [place] [address] 10/11/2024 [facility] [address] [facility] [place] [address] 10/11/2024 [place] [facility] [address] [place] [address] 10/11/2024 Pablo [facility] [address] [place] [address] 01/10/2025 [place] [facility] [address] [place] [address] 02/28/2025 [place] [facility] [address] [place] [address] 04/07/2025 [place] [facility] [address] [place] [address] 04/21/2025 Pablo [facility] [address] [place] [address] 04/22/2025 Pablo Graves [facility] [address] [facility] [address] 04/28/2025 Pablo Graves [facility] [address] [place] [address] 07/05/2024 Pablo Graves Acute non-recurrent sinusitis, unspecified location J01.90 and Nasal congestion R09.81 [facility] [address] [facility] [place] [address] 08/25/2024 Pablo Graves Coronary artery dise ase I25.10 and Acute on chronic diastolic (congestive) heart failure I50.33 [facility] [address] [place] [address] 09/27/2024 Pablo Graves Pleural effusion J90 [facility] [address] [place] [address] 02/17/2025 Stefanie Flash Sinusitis J32.9 [facility] [address] [place] [address] 03/11/2025 Pablo Graves Anxiety F41.9 ; Insomnia, unspecified type G47.00 and Coronary artery disease I25.10 [facility] [address] [place] [place] [address] 03/30/2025 Pablo Graves Insomnia, unspecifie d type G47.00 [facility] [address] [place] [address] 04/21/2025 Pablo Graves Coronary artery dise ase I25.10 ; Congestive heart failure I50.9 ; BP (high blood pressure) I10 and Acquired hypothyroidism E03.9 [facility] [address] [place] [address] 05/05/2025 Pablo Graves BP (high blood pressure) I10 [facility] [address] [place] [address] 04/07/2025 Pablo Graves Essential (primary) hypertension I10 Assessments Encounter Date Diagnosis (ICD Code) Assessment Notes Treatment Notes Treatment Clinical Notes Section Notes 08/25/2024 Coronary artery disease (ICD-10 - I25.10) 08/25/2024 Acute on chronic diastolic (congestive) heart failure (ICD-10 - I50.33) 09/27/2024 Pleural effusion (ICD-10 - J90) 02/17/2025 Sinusitis (ICD-10 - J32.9) fu if not improving 03/11/2025 Anxiety (ICD-10 - F41.9) 03/11/2025 Insomnia, unspecified type (ICD-10 - G47.00) 03/30/2025 Insomnia, unspecified type (ICD-10 - G47.00) 04/07/2025 Essential (primary) hypertension (ICD-10 - I10) 04/21/2025 Coronary artery disease (ICD-10 - I25.10) 04/21/2025 Congestive heart failure (ICD-10 - I50.9) 05/05/2025 BP (high blood pressure) (ICD-10 - I10) 07/05/2024 Acute non-recurrent sinusitis, unspecified location (ICD-10 - J01.90) Rest and drink more liquids, especially water. You may use a humidifier or vaporizer to help keep the drainage moist. Kacf-cmv-gnubmbs Nasal Saline may help the stuffy and runny nose. Use Ibuprofen and or Tylenol as needed for fever, chills, body aches or pain. Children 5 years old should not be given dpec-und-kahiahe cough and cold medications such as guaifenesin and dextromethorphan. If you're over age 5, you may try qqgb-nzo-hgggdyy cold medications such as guaifenesin and dextromethorphan, [...] R79.9) 07/05/2024 Nasal congestion (ICD-10 - R09.81) 04/21/2025 BP (high blood pressure) (ICD-10 - I10) 03/11/2025 Coronary artery disease (ICD-10 - I25.10) 04/21/2025 Acquired hypothyroidism (ICD-10 - E03.9) 05/05/2025 Other Continue taking medications as prescribed and monitor BP at home regularly. Plan Of Treatment Pending Test Test Name Order Date Lexiscan Stress Nuclear Test 06/26/2023 CMP (COMPLETE METABOLIC PANEL) 3 IRON, TOTAL 04/21/2025 CBC WITH DIFF 11/11/2022 T3 FREE, T4 FREE and TSH 11/11/2022 CARDIO Echocardiogram 04/21/2025 FTI 11/11/2022 Insulin Level 11/11/2022 Basic Metabolic Panel (8) 10/06/2024 BNP 05/05/2025 BNP 04/21/2025 XR CHEST 2 V 09/27/2024 THYROID PANEL (T4/TSH/FREE T3) 5 THYROID PANEL (T4/TSH/FREE T3) 5 THYROID PANEL (T4/TSH/FREE T3) 4 *CARDIO Stress Test - Lexiscan Nuclear 0 08/25/2024 CMP (COMP MET [place]Y) w/eGFR CKD-EPI 2024 CBC WITH DIFF 04/21/2025 Insurance Providers Payer Name Payer Address Payer Phone Subscriber Number Group Number Insured Name Patient Relationship to Insured Coverage Start Date Coverage End Date [place] [address] [place] [address] [id number] Son Hubbard Self - patient is the insured 1 [employer] SUPPLEMENT INSURANCE [address] [place] [phone] [id number] PLAN G Son Hubbard Self - patient is the insured 0 Medications Administered Medication Instructions Date of Administration Dosage Notes Kenalog-40 06/17/2023 80 mg 80 mg Medical (General) History Medical History History ICD Code Depression Anxiety Pulmonary, Hypertension Raynaud's Mitral Valve Regurtitation IBS-D Surgical History Surgery Date(Month/Year) Back Surgery 2019 Stent Placement 2019 Right Knee Replacement 2013 Lumbar Discetomy 2017 Hospitalization History Reason Date(Month/Year) A-Fib 08/2024 A-fib 10/04 Congestion 06/2023
--- OUTSIDE RECORDS SUMMARY | 2025-05-06 09:33 | XMS_ITS | Patient Health Record ---
Author Organization [facility] [place] Address [address] [place] [address] Care Team Providers Care Software Solutions Architect Name Role Phone Demarco Graves Primary Care Provider Unavailabl e Mckenzie Zuniga Unavailable [phone] Ata Toscano MD Unavailable Unavailable Allergies Allergen [...] Status Risk Notes Problem Coronary artery disease (51430539) CAD (coronary artery disease) (I25.10) Active confirmed Problem Hypertension (66518811) HTN (hypertension) (I10) Active confirmed Problem Chronic kidney disease stage 3 (disorder) (054726110) Chronic kidney disease, stage 3 unspecified (N18.30) [...] Date Coverage End Date MEDICARE [address] [place] [address] [id number] Cece Hubbard Self - patient is the insured [employer] SUPPLEMENT [address] [place] [address] [id number] Cece Hubbard Self - patient is the insured Medical (General) History Medical History History ICD Code hypertension hyperlipidemia Hypothyroidism coronary artery disease mitral valve regurgitation Atrial fibrillation Acute Kidney Injury Surgical History Surgery Date(Month/Year) cardiac catheterization stents (cardiac) right knee replacement lumbar microdiskectomy Back surgery Hospitalization History Reason Date(Month/Year) CAD 11/2023
--- OUTSIDE RECORDS SUMMARY | 2025-05-06 09:33 | XMS_ITS | Encounter Summary ---
Author Organization [facility] Address [address] [place] [address] Phone Care Team Providers Care Ground Host/Hostess Name Role Phone Demarco Graves MD Primary Care Provider [phone] Encounter Details Date Type Department Care Team (Late st Contact Info) Description 02/28/2025 Scanned Document [facility] [address] [place] [address] Scanning, Generic Provider Social History Tobacco Use [...] Description 10/11/2025 10:10 AM EST Office Visit [facility] [address] [facility] [address] [place] [address] Víctor Jones MD [address] [facility] [address] [place] [address] documented as of this encounter Procedures Procedure Name Priority Date/Time Associated Diagnosis Comments OUTSIDE LAB SCAN 02/28/2025 OUTSIDE LAB SCAN 02/28/2025 documented in this encounter Results * OUTSIDE LAB SCAN (02/28/2025) Narrative 02/28/2025 Ordered by an unspecified provider. us Generic Provider Scanning OUTSIDE SCAN Final Result * OUTSIDE LAB SCAN (02/28/2025) Narrative 02/28/2025 Ordered by an unspecified provider. us Generic Provider Scanning OUTSIDE SCAN Final Result documented in this encounter Visit Diagnoses Not on filedocumented in this encounter Additional Health Concerns Assessment Noted Time A fall risk assessment has been complete d for the patient 07/16/2024 2:47 PM EST documented as of this encounter Care Teams Ground Host/Hostess Relationship Specialty Start Date End Date Demarco Graves MD [address] [place] [address] PCP - General Family Medicine 01/12/24 documented as of this encounter
--- OUTSIDE RECORDS SUMMARY | 2025-05-06 09:33 | XMS_ITS | Encounter Summary ---
Author Organization [facility] Address [address] [place] [address] Phone Care Team Providers Care Ict Development Manager Name Role Phone Demarco Graves MD Primary Care Provider [phone] Encounter Details Date Type Department Care Team (Late Contact Info) Description 10/06/2024 Scanned Document [facility] [address] [place] [address] Scanning, Generic Provider Social History [...] Description 10/11/2025 10:10 AM EST Office Visit [facility] [address] [facility] [address] [place] [address] Víctor Jones MD [address] [facility] [address] [place], [place] [phone] documented as of this encounter Procedures Procedure [...] documented as of this encounter Care Teams Ict Development Manager Relationship Specialty Start Date End Date Demarco Graves MD [address] [phone] PCP - General Family Medicine 01/12/24 documented as of this encounter
--- OUTSIDE RECORDS SUMMARY | 2025-05-06 09:33 | XMS_ITS | Encounter Summary ---
Author Organization [facility] Address [address] [place] [address] Phone Care Team Providers Care Weaving Loom Operator Name Role Phone Demarco Graves MD Primary Care Provider [phone] Encounter Details Date Type Department Care Team (Late st Contact Info) Description 09/08/2024 Scanned Document [facility] [address] [place] [address] Scanning, Generic Provider Social History Tobacco Use [...] Description 10/11/2025 10:10 AM EST Office Visit [facility] [address] [facility] [address] [place] [address] Víctor Jones MD [address] [facility] [address] [place] [address] documented as of this encounter Procedures Procedure [...] documented as of this encounter Care Teams Weaving Loom Operator Relationship Specialty Start Date End Date Demarco Graves MD [address] [place] [address] PCP - General Family Medicine 01/12/24 documented as of this encounter
--- OUTSIDE RECORDS SUMMARY | 2025-05-06 09:33 | XMS_ITS | Clinical Summary ---
Author Organization [facility] Healthcare Address [address] [place] [place] [address] Care Team Providers Care Ui Engineer Name Role Phone Demarco Graves MD Primary Care Provider [phone] Allergies Active Allergy Reactions Criticality Noted Date Comments Rodney Inhibitors Hives,Rash Low 04/28/2012 Hives with itching Acetaminophen GI intolerance 01/20/2024 Amlodipine Swelling 04/24/2022 Amoxicillin Dizziness 03/13/2023 Codeine Nausea And Vomiting,Nausea Only,GI intolerance Low 04/28/2012 Hydrocodone GI intolerance 01/20/2024 Meperidine GI intolerance 01/20/2024 Morphine Nausea And Vomiting Low 08/19/2017 Other Reaction(s): severe vomiting Other 03/13/2023 Medications ASPIRIN 81 PO Aspirin Active aspirin 81 MG EC tablet Take 1 tablet by mouth in the morning. Active amLODIPine (Norvasc) 5 MG tablet 1 (one) time each day at the same time. Active Multiple Vitamin (MULTIVITAMIN ADULT PO) Take by mouth. Activ e metoprolol succinate XL (Toprol-XL) 25 MG 24 hr tablet TAKE 1 TABLET BY MOUTH EVERY DAY IN THE MORNING *DO NOT CRUSH OR CHEW* 2 Active meloxicam (Mobic) 15 MG tablet Take 1 tablet by mouth in the morning. Active losartan (Cozaar) 50 MG tablet 1 tablet Orally in AM Active losartan (Cozaar) 100 MG tablet Take 1 tablet by mouth in the morning. 3 Active Krill Oil 500 MG capsule Orally Active hydrALAZINE (Apresoline) 25 MG tablet Take 1 tablet by mouth in the morning and 1 tablet before bedtime. Active gabapentin (Neurontin) 100 MG capsule 1 capsule 1 (one) time each day at the same time. Active furosemide (Lasix) 20 MG tablet Take 1 tablet every other day by oral route. 3 Active escitalopram (Lexapro) 10 MG tablet Take 10 mg by mouth in the morning. 3 Active DULoxetine (Cymbalta) [address] capsule Take 1 capsule by mouth in the morning. Active dilTIAZem CD (Cardizem CD) 120 MG 24 hr capsule TAKE 1 CAPSULE BY MOUTH EVERY DAY IN THE MORNING 2 Active diclofenac (Voltaren) 75 MG EC tablet Take 75 mg by mouth in the morning and 75 mg before bedtime. 2 Active cyclobenzaprine (Flexeril) 5 MG tablet Take 1 tablet by mouth at bedtime. Active coenzyme Q-10 10 MG capsule Active citalopram (CeleXA) 20 MG tablet Take 1 tablet by mouth in the morning. Active atorvastatin (Lipitor) 10 MG tablet take 1 tablet by oral route every day Oral Active atorvastatin (Lipitor) 40 MG tablet Take 40 mg by mouth in the morning. Active Multiple Vitamins-Minera ls (PRESERVISION AREDS 2 PO) PreserVision AREDS Active Ventolin HFA 108 (90 Base) MCG/ACT inhaler INHALE 2 PUFFS EVERY 4 HOURS NEEDED FOR SHORTNESS OF BREATH OR FOR WHEEZE 4 Active amiodarone (Pacerone) 200 MG tablet Take 100 mg by mouth in the morning. 4 Active apixaban (Eliquis) 5 MG tablet Take 5 mg by mouth in the morning and 5 mg in the evening. 4 Active clopidogrel (Plavix) 75 MG tablet Take 75 mg by mouth in the morning. 4 Active empagliflozin (Jardiance) 10 MG Take 0.5 mg by mouth in the morning. Active isosorbide mononitrate ER (Imdur) 30 MG 24 hr tablet Take 30 mg by mouth in the morning. 4 Active liothyronine (Cytomel) 5 MCG tablet Take 5 mcg by mouth in the morning. 3 Active meclizine (Antivert) 25 MG tablet 25 mg 4 (four) times a day as needed 3 Active pantoprazole (ProtoNix) 40 MG EC tablet Take 40 mg by mouth in the morning. Take before meals. 4 Active potassium chloride CR (Klor-Con) 10 MEQ ER tablet Take 10 mEq by mouth Daily 4 Active ipratropium (Atrovent) 0.06 % nasal sprayIndication s:Chronic rhinitis Administer 2 sprays into each nostril in the morning and 2 sprays in the evening and 2 sprays before bedtime. 15 mL 11 4 Active triamcinolone (Kenalog) 0.1 % creamIndication s:Vaginal itching Apply topically 2 (two) times a day 30 g 1 4 Active tacrolimus (Protopic) 0.1 % ointmentIndicat ions:Flexural atopic dermatitis Apply topically 2 (two) times a day 30 g 3 4 06/09/20 25 Active Active Problems No known active problems Family History Medical History Relation Name Comments Heart disease Father Hypertension Father Hypertension Mother Ovarian cancer Mother Esophageal cancer Son Melanoma Neg Hx Relation Name Status Comments Brother Patient has 1 b rother Daughter Alive Father Mother Son Social History Tobacco Use Types Packs/Day Years Used Date Smoking Tobacco: Former Cigarettes Q uit: 1989 Smokeless Tobacco: Never Alcohol Use Standard Drinks/Week Comments Never 0 (1 standard drink = 0.6 oz pur e alcohol) Caffeine: 1-2 cups/day coffee Comments No Sex and Gender Information Value Date Recorded Sex Assigned at Not on file Legal Sex Female 8:34 PM EDT Gender Identity Female 03/06/2023 8:39 AM EDT Sexual Orientation Not on file Last Filed Vital Signs Vital Sign Reading Time Taken Comments Blood Pressure 130/80 04/21/2024 1:58 PM EDT Pulse - - Temperature - - Respiratory Rate - - Oxygen Saturation - - Inhaled Oxygen Concentration - - Weight 78 kg (172 lb) 08/12/2024 11:04 AM EST Height 160 cm (5' 3 ) 04/07/2024 2:13 PM EDT Body Mass Index 30.47 04/07/2024 2:13 PM EDT Plan of Treatment Health Maintenance Due Date Last Done Comments Pneumococcal Vaccine: 65+ Ye ars (2 of 2 - PCV) 05/28/2018 05/28/2017, 05/30/2012 Influenza Vaccine (#1) 2025 3, 07/24/2020, 05/28/2017, Additional [place] [id number] MEDICARE Care Teams Ui Engineer Relationship Specialty Start Date End Date Demarco Graves MD PCP - General Family Medicine 04/07/24
--- OUTSIDE RECORDS SUMMARY | 2025-05-06 09:34 | XMS_ITS | Clinical Summary ---
Author Organization [facility] Address [address] [place] [id number] Care Team Providers Care Healthcare Liaison Name Role Phone Ashanti Meyer MD Unavailable Vasyl Covarrubias MD Unavailable [phone] Demarco Graves MD Primary Care Provider [phone] Allergies Active Allergy Reactions Criticality Noted Date [...] or >5 lb in 1 week, call director of agriculture if taking this). 30 tablet 12/03/2023 3:31 [...] BID, atorvastatin 40mg nightly -Planned MVr-CABG at [facility] on 12/04, Admitted to [facility] while awaiting transfer to [facility] Stage 3 chronic kidney disease 11/24/2023 [...] BID, atorvastatin 40mg nightly -Planned MVr-CABG at [facility] on 12/04, Admitted to [facility] while awaiting transfer to [facility] 11/24/2023 Assessment & Plan (11/24/2023 8:46 PM [...] BID, atorvastatin 40mg nightly -Planned MVr-CABG at [facility] on 12/04, Admitted to [facility] while awaiting transfer to [facility] Assessment & Plan (11/02/2023 11:26 AM EDT): - Per outpatient [facility] h/o moderate-severe MR - Presents with worsening SOB, primarily on minimal exertion - Not in acute CHF - Patient's shortness of breath improved with supplemental - Cardiology following; left and right heart cath completed on 10/30 - consider repeat VIOLA - Request made for OSH Echo ([place]) for Cardiology to evaluate. - Losartan on [...] BID, atorvastatin 40mg nightly -Planned MVr-CABG at [facility] on 12/04, Admitted to [facility] while awaiting transfer to [facility] Assessment & Plan (11/02/2023 11:28 AM [...] BID, atorvastatin 40mg nightly -Planned MVr-CABG at [facility] on 12/04, Admitted to [facility] while awaiting transfer to [facility] Assessment & Plan (10/28/2023 3:17 PM [...] BID, atorvastatin 40mg nightly -Planned MVr-CABG at [facility] on 12/04, Admitted to [facility] while awaiting transfer to [facility] Assessment & Plan (04/24/2022 12:20 PM [...] BID, atorvastatin 40mg nightly -Planned MVr-CABG at [facility] on 12/04, Admitted to [facility] while awaiting transfer to [facility] Assessment & Plan (04/24/2022 12:21 PM [...] drink = 0.6 oz pur e alcohol) [facility] Utilities Answer Date Recorded In [...] slept in a intermediate (including now)? No 11/28/2023 Area Deprivation Index Answer Date Pb rded National Score (1-100), lower number is lower ri sk 80 12/03/2023 State Score (1-10), lower number is lower risk 7 12/03/2023 Data from: https://www.neighborhoodatlas.medicine.[facility].edu/. Last address used for calculation [address] [...] Vaccine (1 - 1-dose 75+ series) 2021 Pneumococcal Vaccine: 50+ (2 of 2 - [...] Beltran RN Medical Devices Implanted Type Area Ju[employer] Officer Device Identifier Shelf Expiration Date Model / Serial / Lot Elan Bn Smpx P Radpq Fd Strl - [id number] Implanted:Qty : 2 on 05/27/2012 at [facility] Cement / Putty Right: Bone - Knee [facility] 09/27/2014 [id number] / / [id number] Sys Bncmnt Prep Kt Plg Brsh - [id number] Implanted:Qty : 1 on 05/27/2012 at [facility] Implant Left: Bone - Knee [employer] 08/27/2021 [id number] / / [id number] Description:CEMENT RESTRICTO R Lens Iol 0d +19.5 Talat Uv Abs - [id number] Implanted:Qty : 1 on 05/01/2022 by Franchesca Dumont V, MD at [facility] Intraocular Lens Left: Eye [employer] 03/25/2026 SA60WF.195 / [id number] / Description:-1.52 Lens Iol 0d +18 Talat Uv Abs - [id number] Implanted:Qty : 1 on 05/15/2022 by Franchesca Dumont V, MD at [facility] Intraocular Lens Right: Eye [employer] 11/07/2026 SA60WF.180 / [id number] / Description:-0.34 Stem Fem 50mm 12mm Elan Trthln - [id number] Implanted:Qty : 1 on 05/27/2012 at [facility] Joint - Knee Left: Bone - Knee [facility] [employer] 02/24/2017 [id number] / / [id number] Description:cemented stem Aug Tib 10mm Trthln 3 Rt - [id number] Implanted:Qty : 1 on 05/27/2012 at [facility] Joint - Knee Left: Bone - Knee [employer] 09/27/2016 [id number] / / [id number] Description:AUGMENT Comp Fem 3 Rt Kn Total Stab - [id number] Implanted:Qty : 1 on 05/27/2012 at [facility] Joint - Knee Left: Bone - Knee [employer] 04/27/2017 [id number] / / [id number] Description:TS FEMUR Ins Tib 3 13mm Kn X3 Cs Trthln - [id number] Implanted:Qty : 1 on 05/27/2012 at [facility] Joint - Knee Left: Bone - Knee [employer] 06/27/2015 [id number] / / [id number] Description:CS INSERT Comp Pat 10mm 32mm Asym Trthln - [id number] Implanted:Qty : 1 on 05/27/2012 at [facility] Joint - Patella Left: Bone - Knee [employer] 05/27/2017 [id number] / / [id number] Description:PATELLA Baseplt Tib Trthln 3 Kn Total - [id number] Implanted:Qty : 1 on 05/27/2012 at [facility] Plate Left: Bone - Knee [employer] 04/27/2017 [id number] / / [id number] Description:UNIVERSAL BASEPL ATE Procedures Procedure Name Priority Date/Time Associated Diagnosis Comments COMPLETE BLOOD COUNT Routine 12/03/2023 4:20 AM EDT COMPREHENSIVE METABOLIC PANEL Routine 12/03/2023 4:20 AM EDT LIPID PANEL, FASTING Add-on 10/31/2023 5:37 AM EDT from Last 3 Months or Most Recently Relevant to Health Maintenance Results * (ABNORMAL) COMPREHENSIVE METABOLIC PANEL (12/03/2023 4:20 AM EDT) [facility] Protein, Total 7.1 6.3 - 8.0 g/dL 12/03/2023 5:26 AM EDT [facility] Albumin 4.3 3.9 - 4.9 g/dL [facility] Calcium, Total 10.3(H) 8.5 - 10.2 mg/dL 12/03/2023 5:26 AM [facility] Bilirubin, Total 0.8 0.2 - 1.3 mg/dL 12/03/2023 5:26 AM [facility] Alkaline Phosphatase 99 34 - 123 U/L 12/03/2023 5:26 AM [facility] AST 20 13 - 35 U/L 12/03/2023 5:26 AM [facility] ALT 22 7 - 38 U/L 12/03/2023 5:26 AM [facility] Glucose 105(H) 74 - 99 mg/dL 12/03/2023 5:26 AM [facility] Comment: The [place] Diabetes Association (ADA) provides guidance for cutoff [...] Standards of Medical Care in Diabetes 2016, [place] Diabetes Association. Diabetes Care. 2016.39(Suppl 1). BUN 32(H) 7 - 21 mg/dL 12/03/2023 5:26 AM [facility] Creatinine 1.83(H) 0.58 - 0.96 mg/dL 12/03/2023 5:26 AM [facility] Sodium 135(L) 136 - 144 mmol/L 12/03/2023 5:26 AM [facility] Potassium 4.3 3.7 - 5.1 mmol/L 12/03/2023 5:26 AM [facility] Chloride 99 97 - 105 mmol/L 12/03/2023 5:26 AM [facility] CO2 24 22 - 30 mmol/L 12/03/2023 5:26 AM EDT [facility] Anion Gap 12 9 - 18 mmol/L 12/03/2023 5:26 AM EDT [facility] Estimated Glomerular Filtration Rate 28(L) >=60 mL/min/1. 73m 12/03/2023 5:26 AM EDT [facility] Comment:Estimated Glomerular Filtration Rate (eGFR) is [...] us Joel Parrish MD LABORATORY Final Result [facility] [address] [place] [address], * COMPLETE BLOOD COUNT (12/03/2023 4:20 AM EDT) WBC 6.44 3.70 - 11.00 k/uL 12/03/2023 5:06 AM EDT [facility] RBC 4.29 3.90 - 5.20 m/uL 12/03/2023 5:06 AM EDT [facility] Hemoglobin 13.4 11.5 - 15.5 g/dL 12/03/2023 5:06 AM EDT [facility] Hematocrit 40.6 36.0 - 46.0 % 12/03/2023 5:06 AM EDT [facility] MCV 94.6 80.0 - 100.0 fL 12/03/2023 5:06 AM EDT [facility] MCH 31.2 26.0 - 34.0 pg 12/03/2023 5:06 AM EDT [facility] MCHC 33.0 30.5 - 36.0 g/dL 12/03/2023 5:06 AM EDT [facility] RDW-CV 14.6 11.5 - 15.0 % 12/03/2023 5:06 AM EDT [facility] Platelet Count 166 150 - 400 k/uL 12/03/2023 5:06 AM EDT [facility] MPV 11.2 9.0 - 12.7 fL 12/03/2023 5:06 AM EDT [facility] Absolute nRBC <0.01 <0.01 k/uL 12/03/2023 5:06 AM EDT [facility] Blood BLOOD SPECIMEN / Unknown Venipuncture / Unknown 12/03/2023 4:20 AM EDT 12/03/2023 4:50 AM EDT Joel Parrish MD LABORATORY Final Result Performing Organization Address City/State/[facility] Co de Phone Number [facility] [address] [place] [address], * LIPID PANEL BASIC (10/31/2023 5:37 AM EDT) Cholesterol, Total 112 <200 mg/dL 10/31/2023 10:21 AM [facility] Comment: <200 mg/dL, Desirable 200-239 mg/dL, Borderline high >239 mg/dL, High Triglyceride 115 <150 mg/dL 10/31/2023 10:21 AM [facility] Comment: <150 mg/dL, Normal 150-199 mg/dL, Borderline high 200-499 mg/dL, High >499 mg/dL, Very high HDL Cholesterol 52 >39 mg/dL 10:21 AM T [facility] Comment: 40-59 mg/dL, Acceptable >59 mg/dL, High: Negative risk factor for coronary heart disease <40 mg/dL, Low: Positive risk factor for coronary heart disease Non HDL Cholesterol 60 <130 mg/dL 10/31/2023 10:21 AM [facility] Comment: <130 mg/dL, Optimal 130-159 mg/dL, Near optimal/above optimal 160-189 mg/dL, Borderline high 190-219 mg/dL, High >219 mg/dL, Very high Secondary prevention optimal non HDL Cholesterol levels are recommended to be <100 mg/dL Fasting Time 10/31/2023 10:21 AM EDT [facility] Comment:Unknown VLDL Cholesterol 23 <30 mg/dL 10/31/19 10:21 AM EDT [facility] TC:HDL Ratio 2.15 <5.10 10/31/2023 10:21 AM EDT [facility] LDL Cholesterol, Calculated 37 <100 mg/dL 10/31/2023 10:21 AM EDT [facility] Comment: <100 mg/dL, Optimal 100-129 mg/dL, Near optimal/above optimal 130-159 mg/dL, Borderline high 160-189 mg/dL, High >189 mg/dL, Very high Secondary prevention optimal LDL Cholesterol levels are recommended to be < 70 mg/dL LDL:HDL Ratio 0.71 <2.54 10/31/2023 10:21 AM EDT [facility] Comment: Reference: 1. National Cholesterol Education Program ATP III Guideline At-A-Glance Quick Desk Reference: National Heart, Lung, and Blood [place]. National Institutes of Health. 2001: NIH Publication No. 01-3305. 2. An International Atherosclerosis Society position paper: global recommendations for the management of dyslipidemia: executive summary, Atherosclerosis. 2014: 232(2):410-413. Blood BLOOD SPECIMEN / Unknown Venipuncture / Unknown 10/31/2023 5:37 AM EDT 10/31/2023 5:48 AM EDT Vasyl Covarrubias MD LABORATORY Final Result Performing Organization Address [facility]/State/[facility] de Phone Number [facility] [address] [place] [address], from Last 3 Months or Most Recently Relevant to Health Maintenance Insurance MEDICARE [place] [address] Advance Directives Documents on File Type Date Recorded Patient Side Trimmer Expl anation Advance Directive(s) 10/30/2023 12:47 PM [...] Code Order Discussed With: Patient Care Teams Healthcare Liaison Relationship Specialty Start Date End Date Demarco Graves MD [address] [facility] [place] [address] PCP - General Family Medicine 10/31/23 [place] [address] [place] [address] Surgeon Cardiac Surg 10/31/23 [place] [address] [place] [address] Assignment Manager Cardiology 10/31/23
--- OUTSIDE RECORDS SUMMARY | 2025-05-06 09:37 | XMS_ITS | CCD ---
Author Organization [facility] Care Team Providers Care Senior Support Engineer Name Role Phone ASHLEY, JOEL H. Referring [...] PROVIDER Admitting Unavailable SELF, REFERRED Referring Unavailable HOPABLO SotoLAS Primary Care Unavailable UNKNOWN, PROVIDER Attending Unavailable UNKNOWN, PROVIDER Admitting Unavailable SELF, REFERRED Referring Unavailable Demarco Newell MD Primary Care Provider [phone] Demarco Newell MD Primary Care Provider [phone] Demarco Newell MD Primary Care Provider [phone] MD Demarco Newell Primary Care Provider MD Demarco Newell Referring Provider [phone] Self, Referral Attending Provider Unavailable Demarco Newell MD Primary Care Provider [phone] OSIRIS ., DR STEWART Admitting Unavailable OSIRIS ., DR STEWART Attending Unavailable OSIRIS ., DR STEWART Primary Care Unavailable OSIRIS ., DR STEWART Consulting Unavailable SHERLYUKATORO, DR ALONZO Admitting Unavailable MOUKARBEL, DR ALONZO [...] Unavailable MD Demarco Newell Primary Care Provider [phone] MD Demarco Newell Referring Provider Self, Referral Attending Provider Unavailable EDWIN BLUNT Attending Unavailable DINORAH MONTES Attending Unavailable EDWIN BLUNT Referring Unavailable EDWIN BLUNT Attending Unavailable Gaetano Shaw MD [facility] Dem[facility]co Newell MD Primary Care Provider [phone] Demarco Newell Primary Care Physician Jalen Flores Attending Unavailable Demarco Newell MD Primary Care Provider [phone] Jacobpending [facility], [place] Unavailable PARRISH, JOEL Referring Unavailable HOY, DEMARCO [...] Primary Care Unavailable ZRAIK, LATRELL Admitting Unavailable ZRAIK, LATRELL Attending Unavailable VASYL COVARRUBIAS Consulting Unavailable DEMARCO NEWELL Primary Care Unavailable HOAlbania, DEMARCO M Primary Care Unavailable NEMR, GASAN Admitting Unavailable NEMR, GASAN Attending Unavailable WANDY GUTIERREZ, WASSIM A Consulting Unavailable Demarco Newell MD Primary Care Provider [phone] MD Demarco Newell Primary Care Provider [phone] DO Rupert Bird Emergency Provider Unavaclara Covarrubias MD, Vasyl Z Unavailable Demarco Newell MD Primary Care Provider [phone] BALDOMERO ASTUDILLO Attending Unavailable DISHA CHEUNG Attending Unavailable STACY HENDERSON Attending Unavailable DISHA CHEUNG Attending Unavailable DISHA CHEUNG Attending Unavailable Demarco Newell MD Primary Care Provider [phone] Demarco Newell MD Referring Provider Self, Referral Attending Provider Unavailable Bernardo Russell DO Emergency Provider Lion Shook MD Admit Provider Lion Shook MD Attending Provider [phone] Loraine ROCHA, [facility] Other Provider Víctor Wills MD Other Provider [phone] Demarco Newell MD Primary Care Provider VÍCTOR WILLS Referring Unavailable DEMARCO NEWELL Primary Care Unavailable VÍCTOR WILLS Referring Unavailable DEMARCO NEWELL Primary Care Unavailable VÍCTOR WILLS Referring Unavailable DEMARCO NEWELL Primary Care Unavailable Demarco Newell MD Primary Care Provider [phone] Kris Blair DO Emergency Provider [phone] VÍCTOR WILLS Attending Unavailable DEMARCO NEWELL Primary Care Unavailable VÍCTOR WILLS Referring Unavailable VÍCTOR WILLS Attending Unavailable DEMARCO NEWELL Primary Care Unavailable VÍCTOR WILLS Attending Unavailable VÍCTOR WILLS Referring Unavailable DEMARCO NEWELL Primary Care Unavailable Geovanna Hardy DO Emergency Provider Stefanoalbania Demarco Jaylyn Primary Care Unavailable Kris Blair A Attending Unavailable Kris Blair A Admitting Unavailable Self, Referral Attending Unavailable Self, Referral Admitting Unavailable StefanoalbaniaPabloDemarco M Referring Unavailable Demarco Newell Jaylyn Primary Care Unavailable Demarco Newell Primary Care Unavailable Bouchra, Lion Attending Unavailable Bouchra, Lion Admitting Unavailable Baron, Basem Consulting Unavailable Joni Willsan Consulting Unavailable Demarco Newell Primary Care Unavailable Geovanna Hardy Attending Unavailable Geovanna Hardy Admitting Unavailable Allergies Allergy Classification Reported Allergen(s) Allergy Type Date of Onset Reaction(s) Facility Angiotensin Converting Enzyme (SERINA) Inhibitors (1 source) Angiotensin Converting Enzyme (Serina) Inhibitors Drug Allergy [address] [facility] Repository Opioid Agonists (2 sources) Codeine; Translations: [morphine] Drug Allergy [address] [facility] Repository (20 sources) Angiotensin-con verting enzyme inhibitor agent; Translations: [SERINA INHIBITORS] Drug Allergy 2 Rash, [facility] ([facility] sources) Codeine; Translations: [CODEINE] Drug Allergy 2 Vomiting, Vomiting (disorder), Nausea And Vomiting, Nausea Only, GI intolerance [facility] (20 sources) HYDROmorphone; Translations: [HYDROMORPHONE (BULK)] Drug Allergy 2 Vomiting [facility] (20 sources) Angiotensin-con verting enzyme inhibitor agent Drug Allergy 2 Rash, Hives [facility] (20 sources) amLODIPine; Translations: [AMLODIPINE] Drug Allergy 2 Swelling [facility] (9 sources) Acetaminophen; Translations: [acetaminophen] Drug Allergy 7 GI intolerance [facility] (13 sources) HYDROcodone; Translations: [hydrocodone] Drug Allergy 7 GI intolerance [facility] (20 sources) Meperidine; Translations: [MEPERIDINE] Drug Allergy 7 Vomiting, Vomiting (disorder), GI intolerance [facility] (20 sources) Morphine; Translations: [morphine] Drug Allergy 7 Vomiting, Vomiting (disorder), GI Upset, Nausea And Vomiting [facility] (1 source) Angiotensin Converting Enzyme (Serina) Inhibitors Drug allergy (disorder) 3 [facility] Repository (1 source) Codeine Drug Allergy 3 [facility] Rep[facility] (1 source) Meperidine Drug Allergy 3 [facility] Repository (10 sources) Amoxicillin; Translations: [AMOXICILLIN] Drug Allergy [address] [facility] Repository (20 sources) gabapentin; Translations: [GABAPENTIN] Drug Allergy 9 Mental Status Change, Altered mental status (finding), Other [facility] Repository (2 sources) HYDROmorphone; Translations: [hydromorphone] Drug Allergy Vomiting (disorder) [facility] (12 sources) dilTIAZem; Translations: [DILTIAZEM] Drug Allergy 4 Shortness of breath [facility] Work Phone: (12 sources) Metoprolol; Translations: [METOPROLOL] Drug Allergy 4 Other [facility] Work Phone: (9 sources) Other Allergy to substance 3 [facility] (11 sources) Amiodarone; Translations: [AMIODARONE] Drug Allergy 4 GI Upset [facility] (11 sources) apixaban; Translations: [APIXABAN] Drug Allergy 4 GI bleeding [facility] Work Phone: (11 sources) Potassium; Translations: [POTASSIUM] Drug Allergy 4 GI Upset [facility] Work Phone: (1 source) Angiotensin Converting Enzyme (Serina) Inhibitors Drug allergy (disorder) 5 [facility] Repository Medications Current Medications Medication Drug Class(es) Dates Sig (Normalized) Sig (Original) [id number] 200 actuat albuterol 0.09 mg/actuat metered dose inhaler (11 sources) beta2-Adrenergic Agonist Start: 12-29-2023 take 2 puff(s) by inhalation every four hours as needed Ventolin HFA 108 (90 Base) MCG/ACT inhaler INHALE 2 PUFFS EVERY 4 HOURS NEEDED FOR SHORTNESS OF BREATH OR FOR WHEEZE 12/29/2023 Active take 2 puff(s) by in halation every six hours for wheezing albuterol 90 mcg/actuation inhaler Inhal e 2 puffs every 6 hours if needed for wheezing. Active amiodarone hydrochloride 200 mg oral tablet (20 sources) Antiarrhythmic Start: 12-03-2023 amiodarone (Pa cerone) 200 MG tablet Take 100 mg by mouth in the morning. 12/03/2023 Active Start: 11-02-2023 take 0.5 tablet by m outh once daily in the evening amiodarone (PACERONE) 200 mg tablet Take a half tablet by mouth once daily. 30 tablet 2 12/03/2023 3:31 PM EDT 12/03/2023 Active Start: 10-24-2023 take 1 tablet by gricelda th every twelve hours amiodarone (PACERONE) 200 mg tablet Take 1 tablet by mouth every 12 hours. 0 10/24/2023 Suspended Comment on above: Take 1 tablet by gricelda th every 12 hours. Take 0.5 tablets by mouth once daily. amoxicillin 875 mg / clavulanate 125 mg oral tablet (1 source) Penicillin-class Antibacterial Start: 4 End: 4 Augmentin 875 mg-125 mg Tab 1 tab(s), Oral, q12hr for 7 day(s), 14 tab(s), Refill(s) 0 Start Date: 11/09/23 Stop Date: 11/16/23 Status: Ordered atorvastatin 40 mg oral tablet (20 sources) HMG-CoA Reductase Inhibitor Start: 3 take 1 tablet by mouth once daily Start: 07-28-2017 End: 08-29-2024 take 1 tablet by mouth once daily in the morning Atorvastatin 10 tablet Discontinued 40 MG PO Every morning July 28, 2017 1:00am August 29, 2024 4:41pm Start: 07-28-2017 take 10 mg by mouth at bedtime Atorvastatin Active 10 MG PO Bedtime July 28, 2017 1:00am Comment on above: Take 10 mg by mouth once daily. Take 40 mg by mouth once daily. azithromycin 250 mg oral tablet (1 source) Macrolide Antimicrobial Start: azithromycin 250 mg Tab 250 mg, Oral, As Directed, # 6 tab(s), Refills(s) 0 Start Date: 11/09/23 Status: Ordered benoxinate hydrochloride 4 mg/ml / fluorescein sodium 2.5 mg/ml ophthalmic solution (1 source) Diagnostic Dye Start: End: fluorescein-benoxina te 0.25-0.4 % 1 Drop (FLURESS) citalopram 20 mg oral tablet (9 sources) Serotonin Reuptake Inhibitor take 1 tablet by mouth in the morning citalopram (CeleXA) 20 MG tablet Take 1 tablet by mouth in the morning. Active diclofenac sodium 75 mg delayed release oral tablet (9 sources) Nonsteroidal Anti-inflammatory Drug Start: take 1 tablet by mouth in the morning diclofenac (Voltaren) 75 MG EC tablet Take 75 mg by mouth in the morning and 75 mg before bedtime. 07/18/2022 Active 24 hr dilTIAZem hydrochloride 120 mg extended release oral capsule (9 sources) Calcium Channel Ken Start: take 1 capsule by mouth once daily in the morning dilTIAZem CD (Cardizem CD) 120 MG 24 hr capsule TAKE 1 CAPSULE BY MOUTH EVERY DAY IN THE MORNING 07/16/2022 Active doxepin hydrochloride 10 mg oral capsule (3 sources) Tricyclic Antidepressant Start: take 1 capsule by mouth once daily [...] (12 sources) Sodium-Glucose Cotransporter 2 Inhibitor Start: take 1 tablet by mouth once daily at breakfast empagliflozin (JARDIANCE) 10 mg tablet Take 1 tablet by mouth daily with breakfast. 90 tablet 1 12/23/2023 Active End: 07-16-2024 take 0.5 mg by mouth in the morning empagliflozin (Jardiance) 10 MG Take 0.5 mg by mouth in the morning. Active furosemide 40 mg oral tablet (20 sources) Loop Diuretic Start: 12-03-2023 End: 11-02-2025 take 1 tablet by mouth once daily Start: 10-14-2023 End: 11-30-2023 take 1 tablet [...] take 1 tablet by mouth twice daily Comment on above: Take 25 mg by [...] 1 tablet by mouth every twenty-four hours Comment on above: Take 30 mg by mouth. krill oil 500 mg oral capsule (18 sources) Krill Oil 500 MG capsule Orally Active liothyronine sodium 0.005 mg oral tablet (20 sources) l-Triiodothyronine Start: 06-20-20 take 1 tablet by mouth once daily Comment on above: [facility] loperamide hydrochloride 2 mg oral capsule (6 sources) Opioid Agonist Start: 08-28-19 take 1 capsule by mouth once at bedtime Start: 06-19-2023 take 1 capsule by mo [facility] three times daily as needed for diarrhea loperamide (Imodium) 2 mg capsule Take 1 capsule (2 mg) by mouth 3 times a day as needed for diarrhea. 06/19/2023 Active losartan potassium 100 mg oral tablet (20 sources) Angiotensin 2 Receptor Ken Start: 10-13-2022 take 1 tablet by mouth in the morning losartan (Cozaar) 100 MG tablet Take 1 tablet by mouth in the morning. 10/13/2022 Active Start: 07-28-2017 End: 01-20-2024 take 1 tablet by mouth at bedtime Losartan 25 tablet Discontinued 25 MG PO Bedtime July 28, 2017 1:00am January 20, 2024 12:49pm Start: 07-28-2017 End: 01-20-2024 take 1 tablet by mouth once daily Losartan 50 tablet Discontinued 50 MG PO Daily July 28, 2017 1:00am January 20, 2024 12:48pm take 2 tablets by mo [facility] once daily losartan (COZAAR) 50 mg tablet Take 100 mg by mouth once daily. 0 Active Comment on above: Take 50 mg by mouth once daily. Take 100 mg by mouth once daily. meclizine hydrochloride 25 mg oral tablet (9 sources) Antiemetic Start: 03-18-20 meclizine (Antivert) 25 MG tablet 25 mg 4 (four) times a day as needed 03/18/2023 Active medical cannabis (2 sources) medical cannabis Take by mouth. cream Active meloxicam 15 mg oral tablet (9 [...] 2 PO) PreserVision AREDS Active multivitamin tablet (3 sources) take 1 tablet by mouth once daily multivitamin tablet Take 1 tablet by mouth once daily. Active nebivolol 5 mg oral tablet (6 sources) Start: 08-29-19 25 take 1 tablet by mouth once daily pantoprazole 40 mg delayed release oral tablet (20 sources) Proton Pump Inhibitor Start: 08-30-19 23 take 1 tablet by mouth once daily pantoprazole sod ium (PANTOPRAZOLE ORAL) Take 40 mg by mouth. 0 Active Comment on above: Take 40 mg by mouth. Take 40 mg by mouth once daily. phenylephrine hydrochloride 25 mg/ml ophthalmic solution (1 source) alpha-1 Adrenergic Agonist Start: 3 End: 3 PHENYLephrine 2.5 % 1 Drop (AK-DILATE, ROBERT-SYNEPHRINE) potassium chloride 20 meq powder for oral solution (20 sources) Start: 5 take 20 mEq by mouth twice daily Start: 02-24-2025 End: 02-24-2026 take 1 capsule by mouth once daily potassium chloride ER (Micro-K) 10 mEq ER capsule Indications: Paroxysmal atrial fibrillation (Multi) , High risk medication use Take 1 capsule (10 mEq) by mouth once daily. Do not crush or chew. 90 capsule 3 02/24/2025 02/24/2026 Active Start: 08-29-2024 End: 04-17-2025 Potassium Chloride (Klor-Con M20) 20 mEq Tablet,Er Particles/Crystals Discontinued 40 MEQ PO Daily as needed for Hypokalemia August 29, 2024 1:00am April 17, 2025 10:45am Start: 12-03-2023 take 1 tablet by gricelda once daily as needed potassium chloride ER (KLOR-CON) 20 mEq tablet Take 1 tablet by mouth once daily as needed (take only if taking a dose of lasix for weight gain/swelling). 30 tablet 12/03/2023 3:31 PM EDT 12/03/2023 Active Start: 11-17-2023 take 1 capsule by mo [facility] once daily potassium chloride SR (MICRO-K) 8 mEq cpER Take 1 capsule by mouth once daily. 30 capsule 1 11/17/2023 Suspended Start: 11-02-2023 End: 02-24-2025 take 1 tablet by mouth once daily potassium chloride CR 10 mEq ER tablet Take 1 tablet (10 mEq) by mouth once daily. 11/02/2023 02/24/2025 Discontinued (Therapy completed) Start: 01-23-2022 End: 10-31-2023 potassium chloride ER (K-DUR , KLOR-CON) 10 mEq tablet Take 10 mEq by mouth twice daily. 0 01/23/2022 10/31/2023 Discontinued Comment on above: Take 10 mEq by mouth twice daily. Take 1 tablet by gricelda once daily. Take 1 capsule by mo [facility] once daily. proparacaine hydrochloride 5 mg/ml ophthalmic [...] Comment on above: Take by mouth. vit C/E/zinc/lutein/carrie xanthin (OCUVITE EYE HEALTH ORAL) (9 sources) take 1 capsule by mouth once daily vit C/E/zinc/lutein/z eaxanthin (OCUVITE EYE HEALTH ORAL) Take 1 capsule by mouth once daily. Active warfarin sodium 5 mg oral tablet (7 sources) Vitamin K Antagonist Start: 08-28-2024 take 1 tablet by mouth at bedtime Completed/Discontinued Medications Medication Drug Class(es) Dates Sig (Normalized) Sig (Original) amLODIPine 5 mg oral tablet (18 sources) Dihydropyridine Calcium Channel Ken Start: 03-18-2012 End: 08-28-2024 take 1 tablet by mouth once daily Amlodipine 5 tablet Discontinued 5 MG PO Daily July 28, 2017 1:00am August 28, 2024 1:16pm Comment on above: once daily. apixaban 5 mg oral tablet (20 sources) Factor Xa Inhibitor Start: 12-03-2023 End: 08-28-2024 take 1 tablet by mouth twice daily Apixaban (Eliquis) 5 mg tablet Discontinued 5 MG PO Twice daily January 20, 2024 12:00am August 28, 2024 1:17pm Start: 09-30-2023 take 1 tablet by gricelda [...] type, unspecified whether angina present, unspecified whether tribe or transplanted heart Take 1 tablet (81 [...] Suspended Comment on above: Take by mouth. bacitracin 0.5 unt/mg ophthalmic ointment (5 sources) Start: 01-20-2024 End: 04-17-2025 Bacitracin 500 unit/gram ointment Discontinued 1 APPLIC EYE-BOTH Daily 3.5 7 January 20, 2024 12:00am April 17, 2025 10:46am Start: 01-20-2024 Bacitracin 500 unit/gram ointment Active 1 APPLIC EYE-BOTH Daily 3.5 7 January 19, 2024 11:00pm baclofen 20 mg oral tablet (7 sources) gamma-Aminobutyric Acid-ergic Agonist Start: 07-28-2017 End: 01-20-2024 take 1 tablet by mouth twice daily Baclofen 20 tablet Discontinued 20 MG PO Twice daily July 28, 2017 1:00am January 20, 2024 12:49pm Biotin (4 sources) End: 11-06-2023 BIOTIN ORAL BIOTIN ORAL celecoxib 200 mg oral capsule (7 sources) Nonsteroidal Anti-inflammatory Drug Start: 07-28-2017 End: 07-29-2017 take 1 capsule by mouth once daily Celecoxib 200 mg Capsule Discontinued 200 MG PO Daily July 28, 2017 1:00am July 29, 2017 6:21pm cephalexin 500 mg oral capsule (12 sources) Cephalosporin Antibacterial Start: 01-20-2024 End: 08-28-2024 take 1 capsule by mouth twice daily Cephalexin 500 mg capsule Discontinued 500 MG PO Twice daily 14 January 20, 2024 12:00am August 28, 2024 1:18pm Start: 07-29-2017 End: 01-20-2024 take 1 capsule by mouth every eight hours Cephalexin (Keflex) 500 mg capsule Discontinued 500 MG PO Q8H 21 July 29, 2017 1:00am January 20, 2024 12:49pm clopidogrel 75 mg oral tablet (20 sources) [id number] Platelet Inhibitor Start: 01-20-2024 Clopidogrel Active M G TABLET January 20, 2024 12:00am Start: 12-04-2023 End: 07-16-2025 take 1 tablet by mouth once daily Clopidogrel 75 mg tablet Discontinued 75 MG PO Daily January 20, 2024 12:00am April 17, 2025 10:46am cyclobenzaprine hydrochloride 5 mg oral tablet (15 sources) Muscle Relaxant Start: 02-08-2022 take 1 tablet by mouth once daily at bedtime cyclobenzaprine (FLEXERIL) 5 mg tablet Take 5 mg by mouth daily at bedtime. 0 02/08/2022 Active Comment on above: Take 5 mg by mouth d aily at bedtime. docusate sodium 50 mg / sennosides, retirement 8.6 mg oral tablet (7 sources) Start: 07-29-2017 End: 01-20-2024 take 2 tablets by mouth twice daily Sennosides-Docusate Sodium (Dok Plus) 8.6-50 mg Tablet Discontinued 2 TAB PO Twice daily 40 14 July 29, 2017 1:00am January 20, 2024 12:48pm escitalopram 20 mg oral tablet (20 sources) Serotonin Reuptake Inhibitor Start: 08-28-2024 End: 08-29-2024 Escitalopram Oxalate 20 mg tablet Discontinued MG August 28, 2024 1:00am August 29, 2024 4:41pm Start: 01-20-2024 take 5 mg by mouth at bedtime Start: 01-20-2024 take 2 tablets by mo [facility] at bedtime Escitalopram Oxalate (Lexapro) 10 mg tablet Active 20 MG PO Bedtime January 19, 2024 11:00pm Start: 02-19-2023 End: 10-04-2024 take 1 tablet by mouth once daily in the evening escitalopram oxalate (LEXAPRO) 10 mg tablet Take 1 tablet by mouth once daily. 60 tablet 2 12/03/2023 3:31 PM EDT 12/04/2023 Active Comment on above: Take 1 tablet by gricelda every afternoon. FLUoxetine 20 mg oral capsule (9 sources) Serotonin Reuptake Inhibitor Start: 012 End: take 1 capsule by mouth once daily Fluoxetine 20 mg Capsule Discontinued 20 MG PO Daily July 28, 2017 1:00am August 28, 2024 1:20pm Comment on above: once daily. hydrocortisone 25 [...] OPERATIVE EYE, BEGINNING ONE DAY AFTER SURGERY loratadine 10 mg oral tablet (5 sources) Start: End: take 1 tablet by mouth once daily as needed Loratadine (Claritin) 10 mg tablet Discontinued 10 MG PO Daily as needed for allergic symptoms 02 14January 20, 2024 12:00am April 17, 2025 10:47am 24 hr metoprolol succinate 25 mg extended release oral tablet (12 sources) beta-Adrenergic Ken Start: End: take 1 tablet by mouth once daily Metoprolol Succinate 25 mg tablet extended release 24 hr Discontinued 25 MG PO Daily August 28, 2024 1:00am August 29, 2024 4:41pm Start: 07-01-2022 take 1 tablet by gricelda [...] Patient) Comment on above: Take by mouth. nitrofurantoin, macrocrystals 25 mg / nitrofurantoin, monohydrate 75 mg oral capsule (3 sources) Nitrofuran Antibacterial Start: 025 End: take 1 capsule by mouth twice daily at mealtime Nitrofurantoin Monohyd/M-Cryst (Macrobid) 100 mg capsule Discontinued 100 MG PO Twice daily 14 August 29, 2024 1:00am April 17, 2025 10:47am must administer with a meal/food prednisoLONE acetate 10 mg/ml ophthalmic suspension (4 sources) Corticosteroid Start: 022 End: prednisoLONE acetate (PRED FORTE, ECONOPRED PLUS) 1 % ophthalmic suspension USE DIRECTED BY PHYSICIAN, IN OPERATIVE EYE, BEGINNING ONE DAY AFTER SURGERY 5 mL 0 05/14/2022 10/10/2022 Discontinued (Course of therapy completed) Comment on above: USE DIRECTED BY Star COE, IN OPERATIVE EYE, BEGINNING ONE DAY AFTER SURGERY PSYLLIUM SEED, WITH DEXTROSE, (FIBER ORAL) (2 sources) End: PSYLLIUM SEED, WITH DEXTROSE, (FIBER ORAL) Take by mouth. 0 03/07/2022 Discontinued (Discontinued by Patient) PSYLLIUM SEED, W ITH DEXTROSE, (FIBER ORAL) Take by mouth. 0 Active Comment on above: Take by mouth. regadenoson (Lexiscan) injection 0.4 mg (1 source) Start: 5 End: 0.4 mg, intravenous, Once, On Fri09/15/24 at 1315, For 1 dose Tc-99m tetrofosmin (Myoview) injection 10 millicurie (1 source) Start: 5 End: 10 millicurie, intravenous, Once in imaging, Starting on Fri09/15/24 at 1259, For 1 dose, Administer 45 to 90 minutes prior to imaging unless otherwise indicated. Tc-99m tetrofosmin (Myoview) injection 30 millicurie (1 source) Start: 5 End: 5 30 millicurie, intravenous, Once in imaging, Starting on Fri09/15/24 at 1407, For 1 dose, Administer 45 to 90 minutes prior to imaging unless otherwise indicated. terconazole 4 mg/ml vaginal cream (2 sources) Azole Antifungal Start: 4 End: 4 terconazole (Terazol 7) 0.4 % vaginal cream Indications: Vulvovaginal Candidiasis Insert 1 applicator into the vagina at bedtime for 7 days 45 g 3 04/21/2024 04/28/2024 traMADol hydrochloride 50 mg oral tablet (20 sources) Opioid Agonist Start: 2 take 1 tablet by mouth every eight [...] for Pain 40 14 July 29, 2017 6:23pm January 20, 2024 12:48pm Comment on above: Take 50 mg by [...] Norepinephrine Reuptake Inhibitor Start: 04-09-20 End: 10-31-19 take 1 capsule by mouth once daily venlafaxine ER (EFFEXOR XR) 75 mg 24 hr capsule Take 75 mg by mouth once daily. 0 04/09/2022 10/31/2023 Discontinued Comment on above: Take 75 mg by mouth once daily. vit A/vit C/vit E/zinc/copper (PRESERVISION AREDS ORAL) (9 sources) vit A/vit C/vit E/zinc/copper (PRESERVISION AREDS ORAL) VIT C/VIT E/LUTEIN/MIN/OMEGA-3 (OCUVITE ORAL) (11 sources) End: 11-06-19 VIT C/VIT E/LUTEIN/MIN/OMEGA-3 (OCUVITE ORAL) Take by mouth. 0 11/06/2023 Discontinued VIT C/VIT E/LUTE IN/MIN/OMEGA-3 (OCUVITE ORAL) Take by mouth. 0 Suspended VIT C/VIT E/LUTE IN/MIN/OMEGA-3 (OCUVITE ORAL) Take by mouth. 0 Active Comment on above: Take by mouth. Vitamin A-Vitamin C-Vit E-Min (Ocutabs) tablet (4 sources) Start: 08-28-2024 End: 04-17-2025 take 1 tablet by mouth once at bedtime Vitamin A-Vitamin C-Vit E-Min (Ocutabs) tablet Discontinued 1 TAB PO Bedtime August 28, 2024 1:00am April 17, 2025 10:47am Start: 08-28-2024 take 1 tablet by gricelda th once at bedtime Vitamin A-Vitamin C-Vit E-Min (Ocutabs) tablet Active 1 TAB PO Bedtime August 28, 2024 12:00am Start: 08-28-2024 take 1 tablet by mouth once da oleksandr Vitamin A-Vitamin C-Vit E- Min (Ocutabs) tablet Active 1 TAB PO Daily August 28, 2024 12:00am Problems Active Problems Problem Classification Problem Date Documented Date Episodic/Chronic Acute bronchitis (1 source) Acute bronchitis, unspecified; Translations: [ACUTE BRONCHITIS UNSPECIFIED] Onset: 09-29-2022 Episodic Acute myocardial infarction (13 sources) Myocardial infarction; Translations: [Non-ST elevation (NSTEMI) myocardial infarction] Onset: 11-25-2023 11-25-2023 Chronic Allergic reactions (3 sources) Flexural atopic dermatitis; Translations: [Other atopic dermatitis] 06-09-2024 Chronic Anxiety disorders (20 sources) Anxiety; Translations: [Anxiety disorder, unspecified] Onset: 04-24-2022 04-24-2022 Chronic Aortic; peripheral; 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; 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 [...] Coronary arteriosclerosis; Translations: [Atherosclerotic heart disease of tribe coronary artery without angina pectoris] Onset: 04-24-2022 [...] without current pathological fracture] 04-21-2024 Chronic Other and ill-defined heart disease (14 sources) Diastolic dysfunction; Translations: [Other ill-defined heart diseases] Onset: 01-12-2024 01-12-2024 Chronic Other and ill-defined heart disease (2 sources) Other ill-defined heart diseases; Translations: [Other ill-defined heart diseases] Onset: 01-12-2024 Chronic Other circulatory disease (4 sources) Raynaud's syndrome without gangrene; Translations: [RAYNAUDS SYNDROME WITHOUT GANGRENE] Onset: 07-25-2022 Chronic Other circulatory disease (15 sources) Arteriovenous fistula; 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, acquired] [...] vagina] 04-21-2024 Episodic Other lower respiratory disease (5 sources) Shortness of breath; Translations: [Shortness of breath] Onset: 07-08-2023 Episodic Other lower respiratory disease (3 sources) Dyspnea; Translations: [Shortness of breath] 11-11-2023 Episodic Other lower respiratory disease (1 source) Multiple nodules of lung; Translations: [Other nonspecific abnormal finding of lung field] 12-02-2023 Episodic Other lower respiratory disease (1 source) Other forms of dyspnea; Translations: [Dyspnea on exertion] Onset: 11-26-2023 Episodic Other nutritional; endocrine; and metabolic disorders (18 sources) Obese class I; Translations: [Obesity, unspecified] Onset: 10-30-2023 10-31-2023 Chronic Other nutritional; endocrine; and metabolic disorders (13 sources) Body mass index 30+ - obesity; Translations: [Body mass index (BMI) 30.0-30.9, adult] Onset: 01-12-2024 01-12-2024 Chronic Other nutritional; endocrine; and metabolic disorders (2 sources) Body mass index (BMI) 31.0-31.9, adult; Translations: [Body mass index (BMI) 31.0-31.9, adult] Onset: 02-24-2025 Chronic Other nutritional; endocrine; and metabolic disorders (2 sources) Body mass index (BMI) 30.0-30.9, adult; Translations: [Body mass index (BMI) 30.0-30.9, adult] Onset: 10-04-2024 Chronic Other upper respiratory disease (2 sources) Chronic rhinitis; Translations: [Chronic rhinitis] 04-07-2024 Chronic Pneumonia (except that caused by tuberculosis or sexually transmitted disease) (1 source) Pneumonia; Translations: [Pneumonia, unspecified organism] Onset: 11-09-2023 Episodic Pulmonary heart disease (2 sources) Pulmonary hypertension, unspecified; Translations: [Pulmonary hypertension, unspecified] Onset: 07-08-2023 Chronic Residual codes; unclassified (5 sources) Periorbital edema; Translations: [Localized edema] 01-20-2024 Episodic Residual codes; unclassified (2 sources) Postmenopausal state; Translations: [Asymptomatic menopausal state] 04-21-2024 Episodic Retinal detachments; defects; vascular occlusion; and retinopathy (1 source) Retinal pigment epithelial abnormality; 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 Skin and subcutaneous tissue infections (5 sources) Cellulitis of periorbital region; Translations: [Periorbital cellulitis] 01-20-2024 Episodic Thyroid disorders (19 sources) Hypothyroidism; Translations: [Hypothyroidism, unspecified] Onset: 11-24-2023 11-11-2023 Chronic Unclassified (3 sources) CONTACT W/AND (SUSP) EXPOS COVID-19; Translations: [CONTACT W/AND (SUSP) EXPOS COVID-19] Onset: 09-29-2022 Unclassified (9 sources) Interactive Heart Surgery Education Onset: 11-11-2023 11-11-2023 Past or Other Problems Problem Classification Problem Date Documented Da te Episodic/Chronic Acute and unspecified renal failure (17 sources) Acute renal failure syndrome; Translations: [Acute kidney failure, unspecified] Onset: 10-27-2023 10-31-2023 Episodic Coronary atherosclerosis and other heart disease (9 sources) Presence of coronary angioplasty implant and graft; Translations: [Stented coronary artery] Onset: 07-01-2022 Episodic Other aftercare (15 sources) Drug therapy finding; Translations: [long term care pharmacist (current) use of anticoagulants] Onset: 11-09-2023 11-09-2023 Episodic Other aftercare (15 sources) Patient encounter status; Translations: [Encounter for therapeutic drug level monitoring] Onset: 11-26-2023 11-26-2023 Episodic Other aftercare (14 sources) Taking high risk medication; Translations: [Other long filler cigar roller machine (current) drug therapy] Onset: 01-12-2024 01-12-2024 Episodic Other aftercare (3 sources) Long-term current use of anticoagulant; Translations: [penitentiary (current) use of anticoagulants] Onset: 09-11-2023 05-02-2024 Episodic Other aftercare (2 sources) Other detention (current) drug therapy; Translations: [Other detention (current) drug therapy] Onset: 01-12-2024 Episodic Other connective tissue disease (15 sources) Swelling of right lower limb; Translations: [Other specified soft tissue disorders] Onset: 11-05-2023 11-05-2023 Episodic Other lower respiratory disease (20 sources) Dyspnea on exertion; Translations: [Other forms of dyspnea] Onset: 11-24-2023 11-24-2023 Episodic Other non-traumatic joint disorders (20 sources) Pain in unspecified knee; Translations: [Pain in joint, lower leg] Onset: 06-04-2012 06-04-2012 Episodic Other screening for suspected conditions (not mental disorders or infectious disease) (3 sources) Cancer cervix screening status; Translations: [Encounter for screening for malignant neoplasm of cervix] Onset: 07-29-2024 04-21-2024 Episodic Pleurisy; pneumothorax; pulmonary collapse (8 sources) Pleural effusion; Translations: [Pleural effusion, not elsewhere classified] Onset: 08-28-2024 08-28-2024 Episodic Screening and history of mental health and substance abuse codes (16 sources) Ex-smoker; Translations: [Personal history of nicotine dependence] Onset: 01-12-2024 01-12-2024 Episodic Spondylosis; intervertebral disc disorders; other back problems (20 sources) Chronic low back pain; Translations: [Chronic bilateral low back pain without sciatica] Onset: 06-14-2016 08-07-2021 Episodic Superficial injury; contusion (15 sources) Hematoma of right lower leg; Translations: [Contusion of right lower leg, initial encounter] Onset: 11-05-2023 11-05-2023 Episodic Unclassified (1 source) CONTACT W/AND (SUSP) EXPOS COVID-19; Translations: [CONTACT W/AND (SUSP) EXPOS COVID-19] Onset: 09-25-2022 Unclassified (10 sources) Onset: 01-12-2024 Resolved: 07-16-2024 01-12-2024 Urinary tract infections (7 sources) Acute urinary tract infection; Translations: [Urinary tract infection, site not specified] Onset: 08-28-2024 08-28-2024 Episodic Results Test Name Value Interpretation Reference Range Facility Alanine aminotransferase [En zymatic activity/volume] in Serum or PlasmaOrdered By: Geovanna Hardy on 04-28-2025 ALT [Catalytic activity/Vol] 12 U/L Normal 7-52 [facility] Comment on above: Performed By: #### C MP, HS TROP, BNP, CK, PTT, CBC, PT #### [address] Albumin [Mass/volume] in Ser um or Plasma by Bromocresol green (BCG) dye binding methoOrdered By: Geovanna Hardy on 04-28-2025 Albumin BCG dye [Mass/Vol] 4.3 g/dL 3.5-5.7 [facility] Alkaline phosphatase [Enzyma tic activity/volume] in Serum or PlasmaOrdered By: Geovanna Hardy on 04-28-2025 ALP [Catalytic activity/Vol] 84 U/L Normal 34-104 [facility] Comment on above: Performed By: #### C MP, HS TROP, BNP, CK, PTT, CBC, PT #### [address] Aspartate aminotransferase [ Enzymatic activity/volume] in Serum or PlasmaOrdered By: Geovanna Hardy on 04-28-2025 AST [Catalytic activity/Vol] 16 U/L Normal 13-39 [facility] Comment on above: Performed By: #### C MP, HS TROP, BNP, CK, PTT, CBC, PT #### [address] BNP ser/plasOrdered By: Ravi Hardy on 04-28-2025 Natriuretic peptide B (Bld) [Mass/Vol] 450.0 pg/mL High 5-100 [facility] Comment on above: Result Comment: PERF ORMED BY: [place] [address] PATHOLOGIST ASTROPHYSICS TEACHER ABHILASH ARTIS M.D. Performed By: #### C MP, HS TROP, BNP, CK, PTT, CBC, PT #### [address] Basophils [#/volume] in Bloo d by Automated countOrdered By: Geovanna Hardy on 04-28-2025 Basophils (Bld) [#/Vol] 0.1 10*3/uL Normal 0.0-0.2 [facility] Comment on above: Result Comment: PERF ORMED BY: [place] [address] PATHOLOGIST ASTROPHYSICS TEACHER ABHILASH ARTIS M.D. Performed By: #### C MP, HS TROP, BNP, CK, PTT, CBC, PT #### [facility] [address] Basophils/100 leukocytes in Blood by Automated countOrdered By: Geovanna Hardy on 04-28-2025 Basophils/100 WBC (Bld) 1.0 % Normal . [facility] Comment on above: Performed By: #### C MP, HS TROP, BNP, CK, PTT, CBC, PT #### [facility] [address] Bilirubin.total [Mass/volume ] in Serum or PlasmaOrdered By: Geovanna Hardy on 04-28-2025 Bilirubin [Mass/Vol] 1.1 mg/dL High 0.3-1.0 [facility] Comment on above: Performed By: #### C MP, HS TROP, BNP, CK, PTT, CBC, PT #### [facility] [address] [place] [address] [place] Calcium [Mass/volume] in Ser um or PlasmaOrdered By: Geovanna Hardy on 04-28-2025 Calcium [Mass/Vol] 9.0 mg/dL Normal 8.6-10.3 [facility] Comment on above: Performed By: #### C MP, HS TROP, BNP, CK, PTT, CBC, PT #### [facility] [address] [place] [address] [place] Carbon dioxide, total [Moles /volume] in Serum or PlasmaOrdered By: Geovanna Hardy on 04-28-2025 CO2 [Moles/Vol] 25.4 mmol/L Normal 21.0-31.0 [facility] Comment on above: Performed By: #### C MP, HS TROP, BNP, CK, PTT, CBC, PT #### [facility] [address] [place] [address] [place] Chloride [Moles/volume] in S calli or PlasmaOrdered By: Geovanna Hardy on 04-28-2025 Chloride [Moles/Vol] 107 mmol/L Normal 98-107 [facility] Comment on above: Performed By: #### C MP, HS TROP, BNP, CK, PTT, CBC, PT #### [address] Complete Blood Count Auto Di ffon 04-28-2025 Mean Corpuscular HGB Conc 34.0 g/dL Normal 32.0-35.0 [facility] Comment on above: Performed By: #### C MP, HS TROP, BNP, CK, PTT, CBC, PT #### [address] Monocytes/100 WBC (Bld) 19.75 % Normal 0.00-20.00 [facility] Comment on above: Performed By: #### C MP, HS TROP, BNP, CK, PTT, CBC, PT #### [address] NRBC% 0.2 /100{WBC} Normal 0-0.5 [facility] Comment on above: Performed By: #### C MP, HS TROP, BNP, CK, PTT, CBC, PT #### [address] White Blood Count 6.6 [CFU]/mL Normal 3.8-11.6 [facility] Comment on above: Performed By: #### C MP, HS TROP, BNP, CK, PTT, CBC, PT #### [address] Comprehensive Metabolic Pane anselmo 04-28-2025 Albumin [Mass/Vol] 4.3 g/dL Normal 3.5-5.7 [facility] Comment on above: Performed By: #### C MP, HS TROP, BNP, CK, PTT, CBC, PT #### [address] Creatinine Clr Calc Pharmacy 33.76 Normal [facility] Comment on above: Result Comment: PERF ORMED BY: [place] [address] PATHOLOGIST ASTROPHYSICS TEACHER ABHILASH ARTIS M.D. Performed By: #### C MP, HS TROP, BNP, CK, PTT, CBC, PT #### [address] GFR/1.73 sq M.predicted MDRD (S/P/Bld) [Vol rate/Area] 39.977 mL/min/{1.73_m2} Normal [facility] Comment on above: Performed By: #### C MP, HS TROP, BNP, CK, PTT, CBC, PT #### [address] Creatine kinase [Enzymatic a ctivity/volume] in Serum or PlasmaOrdered By: Geovanna Hardy on 04-28-2025 CK [Catalytic activity/Vol] 123 U/L Normal 30-223 [facility] Comment on above: Performed By: #### C MP, HS TROP, BNP, CK, PTT, CBC, PT #### [address] Creatinine [Mass/volume] in Serum or PlasmaOrdered By: Geovanna Hardy on 04-28-2025 Creatinine [Mass/Vol] 1.35 mg/dL High 0.60-1.20 [facility] Comment on above: Performed By: #### C MP, HS TROP, BNP, CK, PTT, CBC, PT #### [place] [address] [place] ECG 12 lead ECGon 04-28-2025 ECG 12 lead ECG [facility] [place] [address] Electrocardiograph Report Signed Patient: Cece Hubbard MR#: [id number] 1827 : 1945 Acct:[id number] Age/Sex: 80 / F ADM Date: 04/28/25 Loc: ER Room: Type: PRE ER Attending Dr: Ordering Provider: Geovanna Hardy, DO Date of Service: 04/28/25 ECG/ECG 12 lead ECG: Shortness of Breath/Dyspnea Copies to: Test Reason : Blood Pressure : 154/70 mmHG Vent. Rate : 54 BPM Atrial Rate : 54 BPM P-R Int : 174 ms QRS Dur : 84 ms QT Int : 474 ms P-R-T Axes : 45 68 60 degrees QTcB Int : 449 ms Sinus bradycardia Nonspecific ST abnormality Abnormal ECG When compared with ECG of 17-Apr-2025 10:24, No significant change was found Confirmed by GEOVANNA HARDY DO ([id number]) on 04/28/2025 10:26:58 AM Referred By: Electronically Signed By: GEOVANNA HARDY DO Transcribed By: MUS Signed By Geovanna Hardy DO 1026 Normal [facility] Eosinophils [#/volume] in Bl ood by Automated countOrdered By: Geovanna Hardy on 04-28-2025 Eosinophils (Bld) [#/Vol] 0.1 10*3/uL Normal 0.0-0.45 [facility] Comment on above: Performed By: #### C MP, HS TROP, BNP, CK, PTT, CBC, PT #### [facility] [address] [place] [address] Eosinophils/100 leukocytes i n Blood by Automated countOrdered By: Geovanna Hardy on 04-28-2025 Eosinophils/100 WBC (Bld) 0.9 % Normal . [facility] Comment on above: Performed By: #### C MP, HS TROP, BNP, CK, PTT, CBC, PT #### [facility] [address] Erythrocyte distribution wid th [Ratio] by Automated countOrdered By: Geovanna Hardy on 04-28-2025 Erythrocyte distribution width (RBC) [Ratio] 14.7 % Normal 11.9-15.3 [facility] Comment on above: Performed By: #### C MP, HS TROP, BNP, CK, PTT, CBC, PT #### [facility] [address] Erythrocytes [#/volume] in B lood by Automated countOrdered By: Geovanna Hardy on 04-28-2025 RBC (Bld) [#/Vol] 4.16 10*6/uL Normal 3.60-5.00 [facility] Comment on above: Performed By: #### C MP, HS TROP, BNP, CK, PTT, CBC, PT #### [facility] [address] Glomerular filtration rate [ Volume Rate/Area] in Serum, Plasma or Blood by CreatinineOrdered By: Geovanna Antony on 04-28-2025 Glomerular filtration rate [Volume Rate/Area] in Serum, Plasma or Blood by Creatinine 39.977 mL/Min [facility] Glucose [Mass/volume] in Ser um or PlasmaOrdered By: Geovanna Hardy on 04-28-2025 Glucose [Mass/Vol] 114 mg/dL High 70-100 [facility] Comment on above: ADA recommended refe rence rangeRandom Glucose Reference Range is dependent on time and content of last meal. Glucose of more than 200 mg/dL in a nonstressed, ambulatory subject supports the diagnosis of Diabetes Mellitus. Result Comment: Neche om Glucose Reference Range is dependent on time and content of last meal. Glucose of more than 200 mg/dL in a nonstressed, ambulatory subject supports the diagnosis of Diabetes Mellitus. ADA recommended reference range Performed By: #### C MP, HS TROP, BNP, CK, PTT, CBC, PT #### [facility] [address] Hematocrit [Volume Fraction] of Blood by Automated countOrdered By: Geovanna Antony on 04-28-2025 Hematocrit (Bld) [Volume fraction] 37.9 % Normal 34.0-46.4 [facility] Comment on above: Performed By: #### C MP, HS TROP, BNP, CK, PTT, CBC, PT #### [facility] [address] [place] [id number] [facility] Hemoglobin [Mass/volume] in BloodOrdered By: Geovanna Antony on 04-28-2025 Hemoglobin (Bld) [Mass/Vol] 12.9 g/dL Normal 11.8-15.4 [facility] Comment on above: Performed By: #### C MP, HS TROP, BNP, CK, PTT, CBC, PT #### [facility] [address] [place] [address] [place] INR in Platelet poor plasma by Coagulation assayOrdered By: Geovanna Hardy on 04-28-2025 INR Coag (PPP) [Relative time] 2.2 {INR} Normal [facility] Comment on above: INR Therapeutic Rang [...] with mechanical heart valves: 3 - 4.5 Result Comment: INR Therapeutic Range A) Pre- [...] with mechanical heart valves: 3 - 4.5 Performed By: #### C MP, HS TROP, BNP, CK, PTT, CBC, PT #### [facility] [address] Leukocytes [#/volume] correc mayda for nucleated erythrocytes in Blood by Automated counOrdered By: Geovanna Hardy on 04-28-2025 WBC corrected for nucl RBC Auto (Bld) [#/Vol] 6.6 10*3/uL 3.8-11.6 [facility] Leukocytes [#/volume] in Blo od by Automated countOrdered By: Geovanna Hardy on 04-28-2025 WBC (Bld) [#/Vol] 6.6 10*3/uL Normal 3.8-11.6 [facility] Comment on above: Performed By: #### C MP, HS TROP, BNP, CK, PTT, CBC, PT #### [facility] [address] Lymphocytes [#/volume] in Bl ood by Automated countOrdered By: Geovanna Hardy on 04-28-2025 Lymphocytes (Bld) [#/Vol] 1.3 10*3/uL Normal 1.00-4.8 [facility] Comment on above: Performed By: #### C MP, HS TROP, BNP, CK, PTT, CBC, PT #### [address] Lymphocytes/100 leukocytes i n Blood by Automated countOrdered By: Geovanna Hardy on 04-28-2025 Lymphocytes/100 WBC (Bld) 19.7 % Normal . [facility] Comment on above: Performed By: #### C MP, HS TROP, BNP, CK, PTT, CBC, PT #### [address] MCH [Entitic mass] by Automa mayda countOrdered By: Geovanna Hardy on 04-28-2025 MCH (RBC) [Entitic mass] 31.0 pg Normal 24.7-34.3 [facility] Comment on above: Performed By: #### C MP, HS TROP, BNP, CK, PTT, CBC, PT #### [address] MCHC Auto (RBC) [Mass/Vol]Or dered By: Geovanna Hardy on 04-28-2025 MCHC (RBC) [Mass/Vol] 34.0 g/dL 32.0-35.0 [facility] MCV [Entitic volume] by Auto mated countOrdered By: Geovanna Hardy on 04-28-2025 MCV (RBC) [Entitic vol] 91.2 fL Normal 80-100 [facility] Comment on above: Performed By: #### C MP, HS TROP, BNP, CK, PTT, CBC, PT #### [address] Monocyte distribution width [Entitic volume] in Blood by AutomatedOrdered By: Geovanna Hardy on 04-28-2025 Monocyte distribution width Auto (Bld) [Entitic vol] 19.75 % 0.00-20.00 [facility] Monocytes [#/volume] in Bloo d by Automated countOrdered By: Geovanna Hardy on 04-28-2025 Monocytes (Bld) [#/Vol] 0.8 10*3/uL Normal 0.0-0.8 [facility] Comment on above: Performed By: #### C MP, HS TROP, BNP, CK, PTT, CBC, PT #### [facility] [address] [place] [address] [place] Monocytes/100 leukocytes in Blood by Automated countOrdered By: Geovanna Hardy on 04-28-2025 Monocytes/100 WBC (Bld) 11.5 % Normal . [facility] Comment on above: Performed By: #### C MP, HS TROP, BNP, CK, PTT, CBC, PT #### [facility] [address] [place] [address] Neutrophils [#/volume] in Bl ood by Automated countOrdered By: Geovanna Hardy on 04-28-2025 Neutrophils (Bld) [#/Vol] 4.4 10*3/uL Normal 1.8-7.7 [facility] Comment on above: Performed By: #### C MP, HS TROP, BNP, CK, PTT, CBC, PT #### [facility] [address] [place] [address] [place] Neutrophils/100 leukocytes i n Blood by Automated countOrdered By: Geovanna Hardy on 04-28-2025 Neutrophils/100 WBC (Bld) 66.9 % Normal . [facility] Comment on above: Performed By: #### C MP, HS TROP, BNP, CK, PTT, CBC, PT #### [facility] [address] [place] [address] No Panel InformationOrdered By: Geovanna Hardy on 04-28-2025 Pharmacy Creatinine Clearance (Chem 33.76 [facility] Nucleated erythrocytes [Pres ence] in Blood by Automated countOrdered By: Geovanna Hardy on 04-28-2025 Nucleated RBC Auto Ql (Bld) 0.2 /100{WBC} 0-0.5 [facility] Partial Thromboplastin Timeo n 04-28-2025 aPTT Coag (Bld) [Time] 38.2 s High 25.1-36.5 [facility] Comment on above: Result Comment: A he matocrit value greater than 55% may lead to inaccurate results in coagulation testing. Patients having hematocrit values >55% require a special collection tube for coagulation studies. Please contact the laboratory at [phone] for redraw instructions. PERFORMED BY: [place] [address] PATHOLOGIST ASTROPHYSICS TEACHER ABHILASH ARTIS M.D. Performed By: #### C MP, HS TROP, BNP, CK, PTT, CBC, PT #### [facility] [address] [place] [address] [place] Platelet mean volume [Entiti c volume] in Blood by Automated countOrdered By: Geovanna Hardy on 04-28-2025 Platelet mean volume (Bld) [Entitic vol] 9.4 fL Normal 6.3-10.7 [facility] Comment on above: Performed By: #### C MP, HS TROP, BNP, CK, PTT, CBC, PT #### [address] Platelets [#/volume] in Bloo d by Automated countOrdered By: Geovanna Hardy on 04-28-2025 Platelets (Bld) [#/Vol] 201 10*3/uL Normal 150-450 [facility] Comment on above: Performed By: #### C MP, HS TROP, BNP, CK, PTT, CBC, PT #### [place] [address] [place] Potassium [Moles/volume] in Serum or PlasmaOrdered By: Geovanna Hardy on 04-28-2025 Potassium [Moles/Vol] 3.5 mmol/L Normal 3.5-5.1 [facility] Comment on above: Performed By: #### C MP, HS TROP, BNP, CK, PTT, CBC, PT #### [place] [address] [place] Protein [Mass/volume] in Ser um or PlasmaOrdered By: Geovanna Hardy on 04-28-2025 Protein [Mass/Vol] 6.8 g/dL Normal 6.4-8.9 [facility] Comment on above: Performed By: #### C MP, HS TROP, BNP, CK, PTT, CBC, PT #### [place] [address] [place] Prothrombin time (PT)Ordered By: Geovanna Hardy on 04-28-2025 PT Coag (PPP) [Time] 24.5 s High 9.0-12.9 [facility] Comment on above: A hematocrit value g reater than 55% may lead to inaccurate results in coagulation testing. Patients having hematocrit values >55% require a special collection tube for coagulation studies. Please contact the laboratory at [phone] for redraw instructions. Result Comment: A he matocrit value greater than 55% may lead to inaccurate results in coagulation testing. Patients having hematocrit values >55% require a special collection tube for coagulation studies. Please contact the laboratory at [phone] for redraw instructions. Performed By: #### C MP, HS TROP, BNP, CK, PTT, CBC, PT #### [facility] [address] [place] [address] Serum globulin measurement b y calculation (mass/volume)Ordered By: Geovanna Hardy on 04-28-2025 Globulin (S) [Mass/Vol] 2.5 g/dL [facility] Comment on above: Performed By: #### C MP, HS TROP, BNP, CK, PTT, CBC, PT #### [facility] [address] [place] [address] Serum or plasma albumin/glob ulin mass ratioOrdered By: Geovanna Hardy on 04-28-2025 Albumin/Globulin [Mass ratio] 1.7 {ratio} [facility] Comment on above: Performed By: #### C MP, HS TROP, BNP, CK, PTT, CBC, PT #### [facility] [address] [place] [address] Serum or plasma anion gap de terminationOrdered By: Geovanna Hardy on 04-28-2025 Anion gap [Moles/Vol] 11.1 mmol/L Normal 6.0-15.0 [facility] Comment on above: Performed By: #### C MP, HS TROP, BNP, CK, PTT, CBC, PT #### [facility] [address] [place] [address] Sodium [Moles/volume] in Ser um or PlasmaOrdered By: Geovanna Hardy on 04-28-2025 Sodium [Moles/Vol] 140 mmol/L Normal 136-145 [facility] Comment on above: Performed By: #### C MP, HS TROP, BNP, CK, PTT, CBC, PT #### [facility] [address] Troponin I High Sensitivityo n 04-28-2025 Troponin I High Sensitivity 10 Normal 0-15 [facility] Comment on above: Result Comment: The Troponin units of report have been changed to meet the Chest Pain Accreditation requirement, element EC5.M1l2. Troponin units are changed from pg/ml to ng/L. Also, the decimal is removed and results are in whole numbers. PERFORMED BY: [place] [address] PATHOLOGIST ASTROPHYSICS TEACHER ABHILASH ARTIS M.D. Performed By: #### C MP, HS TROP, BNP, CK, PTT, CBC, PT #### [address] Troponin I.cardiac [Mass/vol ume] in Serum or Plasma by Detection limit <= 0.01 ng/mLOrdered By: Geovanna Hardy on 04-28-2025 Troponin I.cardiac DL <= 0.01 ng/mL [Mass/Vol] 10 ng/L 0-15 [facility] Comment on above: The Troponin units o f report have been changed to meet the Chest Pain Accreditation requirement, element EC5.M1l2. Troponin units are changed from pg/ml to ng/L. Also, the decimal is removed and results are in whole numbers. Urea nitrogen [Mass/volume] in Serum or PlasmaOrdered By: Geovanna Hardy on 04-28-2025 Urea nitrogen [Mass/Vol] 25 mg/dL Normal 7-25 [facility] Comment on above: Performed By: #### C MP, HS TROP, BNP, CK, PTT, CBC, PT #### [address] X-ray reportOrdered By: Ian Cantu on 04-28-2025 Study report [facility] [address] [address] XRay Report Signed Patient: Cece Hubbard MR#: [id number] : 1945 Acct:[id number] Age/Sex: 80 / F ADM Date: Loc: ER Room: Type: [facility] ER Attending Dr: Copies to: Geovanna Hardy DO~ Ordering Provider: Geovanna Hardy DO Date of Service: 04/28/25 XR/XR chest 1V portable: Shortness of Breath/Dyspnea SINGLE VIEW CHEST CLINICAL HISTORY: Difficulty breathing for 2 days COMPARISON: 04/17/2025 FINDINGS: Mildly enlarged cardiomediastinal. Mild perihilar congestion. Lungs clear. Noeffusion or pneumothorax. XR/XR chest 1V portable IMPRESSION: MINOR PERIHILAR CONGESTION. NO EFFUSION. NO AIRSPACE DISEASE. Impression dictated by: Elvin Cantu M.D. 04/28/2025 10:47 AM Dictation Location: [place] [address] Transcribed By: [facility] 04/28/25 104 Dictated By: Elvin Cantu MD 04/28/25 104 Signed By: 04/28/25 [facility] Work Phone: XR chest 1V portableon 04-28 XR chest 1V portable [address] [address] XRay Report Signed Patient: Cece Hubbard MR#: [id number] 1827 : 1945 Acct:[id number] Age/Sex: 80 / F ADM Date: 04/28/25 Loc: ER Room: Type: [facility] ER Attending Dr: Copies to: Geovanna Hardy DO Ordering Provider: Geovanna Hardy DO Date of Service: 04/28/25 XR/XR chest 1V portable: Shortness of Breath/Dyspnea SINGLE VIEW CHEST CLINICAL HISTORY: Difficulty breathing for 2 days COMPARISON: 04/17/2025 FINDINGS: Mildly enlarged cardiomediastinal. Mild perihilar congestion. Lungs clear. No effusion or pneumothorax. XR/XR chest 1V portable IMPRESSION: MINOR PERIHILAR CONGESTION. NO EFFUSION. NO AIRSPACE DISEASE. Impression dictated by: Elvin Cantu M.D. 04/28/2025 10:47 AM Dictation Location: [place] [address] Transcribed By: [facility] 04/28/25 1047 Dictated By: Elvin Cantu MD 04/28/25 1046 Signed By: 04/28/25 1047 Normal [facility] aPTT in Platelet poor plasma by Coagulation assayOrdered By: Geovanna Hardy on 04-28-2025 aPTT Coag (PPP) [Time] 38.2 s High 25.1-36.5 [facility] Comment on above: A hematocrit value g reater than 55% may lead to inaccurate results in coagulation testing. Patients having hematocrit values >55% require a special collection tube for coagulation studies. Please contact the laboratory at [phone] for redraw instructions. Alanine aminotransferase [En zymatic activity/volume] in Serum or PlasmaOrdered By: Kris Blair on 04-17-2025 ALT [Catalytic activity/Vol] 14 U/L Normal 7-52 [facility] Comment on above: Performed By: #### C MP, HS TROP, BNP, CK, PTT, CBC, PT #### [facility] [address] [place] [address] [place] Albumin [Mass/volume] in Ser um or Plasma by Bromocresol green (BCG) dye binding methoOrdered By: Kris Blair on 04-17-2025 Albumin BCG dye [Mass/Vol] 4.3 g/dL 3.5-5.7 [facility] Alkaline phosphatase [Enzyma tic activity/volume] in Serum or PlasmaOrdered By: Kris Blair on 04-17-2025 ALP [Catalytic activity/Vol] 93 U/L Normal 34-104 [facility] Comment on above: Performed By: #### C MP, HS TROP, BNP, CK, PTT, CBC, PT #### [facility] [address] [place] [id number] [place] Aspartate aminotransferase [ Enzymatic activity/volume] in Serum or PlasmaOrdered By: Kris Blair on 09-07-2025 AST [Catalytic activity/Vol] 16 U/L Normal 13-39 [facility] Comment on above: Performed By: #### C MP, HS TROP, BNP, CK, PTT, CBC, PT #### [address] BNP ser/plasOrdered By: Dominic Blair on 04-17-2025 Natriuretic peptide B (Bld) [Mass/Vol] 543.0 pg/mL High 5-100 [facility] Comment on above: Result Comment: PERF ORMED BY: [place] [address] PATHOLOGIST ASTROPHYSICS TEACHER ABHILASH ARTIS M.D. Performed By: #### C MP, HS TROP, BNP, CK, PTT, CBC, PT #### [address] Basophils [#/volume] in Bloo d by Automated countOrdered By: Kris Blair on 04-17-2025 Basophils (Bld) [#/Vol] 0.1 10*3/uL Normal 0.0-0.2 [facility] Comment on above: Result Comment: PERF ORMED BY: [place] [address] PATHOLOGIST ASTROPHYSICS TEACHER ABHILASH ARTIS M.D. Performed By: #### C MP, HS TROP, BNP, CK, PTT, CBC, PT #### [address] Basophils/100 leukocytes in Blood by Automated countOrdered By: Kris Blair on 04-17-2025 Basophils/100 WBC (Bld) 0.8 % Normal . [facility] Comment on above: Performed By: #### C MP, HS TROP, BNP, CK, PTT, CBC, PT #### [address] Bilirubin.total [Mass/volume ] in Serum or PlasmaOrdered By: Kris Blair on 04-17-2025 Bilirubin [Mass/Vol] 1.1 mg/dL High 0.3-1.0 [facility] Comment on above: Performed By: #### C MP, HS TROP, BNP, CK, PTT, CBC, PT #### [facility] [address] COVID Cepheid NegativeOrdere d By: Kris Amesarminda on 04-17-2025 SARS-CoV-2 (COVID-19) Ab IA Ql Negative Negative [facility] Comment on above: This is a duplicate Cepheid Xpert Xpress CoV-2/Flu/RSV Plus RNA by RT-PCR result to be used for statistical tracking purpose only. COVID-19 / Flu A/B / RSV PCR on 04-17-2025 SARS-CoV-2 (COVID-19) RNA ERICK+probe Ql (Unsp spec) [...] or Cepheid Disclaimer revoked sooner. PERFORMED BY: [place] [address] PATHOLOGIST ASTROPHYSICS TEACHER ABHILASH ARTIS M.D. Normal [facility] Comment on above: Performed By: #### C MP, HS TROP, BNP, CK, PTT, CBC, PT #### [address] Calcium [Mass/volume] in Ser um or PlasmaOrdered By: Kris Blair on 04-17-2025 Calcium [Mass/Vol] 9.2 mg/dL Normal 8.6-10.3 [facility] Comment on above: Performed By: #### C MP, HS TROP, BNP, CK, PTT, CBC, PT #### [place] [id number] [facility] Carbon dioxide, total [Moles /volume] in Serum or PlasmaOrdered By: Kris Blair on 04-17-2025 CO2 [Moles/Vol] 23.3 mmol/L Normal 21.0-31.0 [facility] Comment on above: Performed By: #### C MP, HS TROP, BNP, CK, PTT, CBC, PT #### [facility] [address] [place], [place] [id number] [facility] Cepheid COVID PCR Negativeon 04-17-2025 SARS-CoV-2 (COVID-19) RNA ERICK+probe Ql (Unsp spec) Negative Normal Negative [facility] Comment on above: Result Comment: This is a duplicate Cepheid Xpert Xpress CoV-2/Flu/RSV Plus RNA by RT-PCR result to be used for statistical tracking purpose only. PERFORMED BY: [place] [id number] PATHOLOGIST ASTROPHYSICS TEACHER ABHILASH ARTIS M.D. Performed By: #### C MP, HS TROP, BNP, CK, PTT, CBC, PT #### [address] Chloride [Moles/volume] in S calli or PlasmaOrdered By: Kris Blair on 04-17-2025 Chloride [Moles/Vol] 106 mmol/L Normal 98-107 [facility] Comment on above: Performed By: #### C MP, HS TROP, BNP, CK, PTT, CBC, PT #### [address] Complete Blood Count Auto Di ffon 04-17-2025 Mean Corpuscular HGB Conc 34.1 g/dL Normal 32.0-35.0 [facility] Comment on above: Performed By: #### C MP, HS TROP, BNP, CK, PTT, CBC, PT #### [address] Monocytes/100 WBC (Bld) 17.53 % Normal 0.00-20.00 [facility] Comment on above: Performed By: #### C MP, HS TROP, BNP, CK, PTT, CBC, PT #### [address] NRBC% 0.0 /100{WBC} Normal 0-0.5 [facility] Comment on above: Performed By: #### C MP, HS TROP, BNP, CK, PTT, CBC, PT #### [address] White Blood Count 8.4 [CFU]/mL Normal 3.8-11.6 [facility] Comment on above: Performed By: #### C MP, HS TROP, BNP, CK, PTT, CBC, PT #### [address] Comprehensive Metabolic Pane anselmo 04-17-2025 Albumin [Mass/Vol] 4.3 g/dL Normal 3.5-5.7 [facility] Comment on above: Performed By: #### C MP, HS TROP, BNP, CK, PTT, CBC, PT #### [address] Creatinine Clr Calc Pharmacy 30.15 Normal [facility] Comment on above: Result Comment: PERF ORMED BY: [place] [address] PATHOLOGIST ASTROPHYSICS TEACHER ABHILASH ARTIS M.D. Performed By: #### C MP, HS TROP, BNP, CK, PTT, CBC, PT #### [address] GFR/1.73 sq M.predicted MDRD (S/P/Bld) [Vol rate/Area] 34.673 mL/min/{1.73_m2} Normal [facility] Comment on above: Performed By: #### C MP, HS TROP, BNP, CK, PTT, CBC, PT #### [address] Creatine kinase [Enzymatic a ctivity/volume] in Serum or PlasmaOrdered By: Kris Blair on 04-17-2025 CK [Catalytic activity/Vol] 103 U/L Normal 30-223 [facility] Comment on above: Performed By: #### C MP, HS TROP, BNP, CK, PTT, CBC, PT #### [place] [address] [place] Creatinine [Mass/volume] in Serum or PlasmaOrdered By: Kris Blair on 04-17-2025 Creatinine [Mass/Vol] 1.52 mg/dL High 0.60-1.20 [facility] Comment on above: Performed By: #### C MP, HS TROP, BNP, CK, PTT, CBC, PT #### [address] ECG 12 lead ECGon 04-17-2025 ECG 12 lead ECG [facility] [place] [address] [place] [address] Electrocardiograph Report Signed Patient: Cece Hubbard MR#: [id number] 1827 : 1945 Acct:[id number] Age/Sex: 80 / F ADM Date: 04/17/25 Loc: ER Room: Type: [facility] ER Attending Dr: Ordering Provider: Kris Blair DO Date of Service: 04/17/2503/04/1026 ECG/ECG 12 lead ECG: Shortness of Breath/Dyspnea Copies to: Test Reason : Blood Pressure : */* mmHG Vent. Rate : 62 BPM Atrial Rate : 62 BPM P-R Int : 166 ms QRS Dur : 80 ms QT Int : 444 ms P-R-T Axes : 63 67 47 degrees QTcB Int : 450 ms Normal sinus rhythm Confirmed by Kris BLAIR DO ([id number]) on 04/17/2025 1:19:42 PM Referred By: Electronically Signed By: Kris BLAIR DO Transcribed By: MUS Signed By Kris Blair DO 0 04/17/25 1319 Normal [facility] Eosinophils [#/volume] in Bl ood by Automated countOrdered By: Kris Blair on 04-17-2025 Eosinophils (Bld) [#/Vol] 0.1 10*3/uL Normal 0.0-0.45 [facility] Comment on above: Performed By: #### C MP, HS TROP, BNP, CK, PTT, CBC, PT #### [facility] [address] [place] [address] Eosinophils/100 leukocytes i n Blood by Automated countOrdered By: Kris Blair on 04-17-2025 Eosinophils/100 WBC (Bld) 1.8 % Normal . [facility] Comment on above: Performed By: #### C MP, HS TROP, BNP, CK, PTT, CBC, PT #### [facility] [address] [place] [address] Erythrocyte distribution wid th [Ratio] by Automated countOrdered By: Kris Blair on 04-17-2025 Erythrocyte distribution width (RBC) [Ratio] 14.5 % Normal 11.9-15.3 [facility] Comment on above: Performed By: #### C MP, HS TROP, BNP, CK, PTT, CBC, PT #### [address] Erythrocytes [#/volume] in B lood by Automated countOrdered By: Kris Blair on 04-17-2025 RBC (Bld) [#/Vol] 4.30 10*6/uL Normal 3.60-5.00 [facility] Comment on above: Performed By: #### C MP, HS TROP, BNP, CK, PTT, CBC, PT #### [facility] [address] Glomerular filtration rate [ Volume Rate/Area] in Serum, Plasma or Blood by CreatinineOrdered By: Kris Blair on 04-17-2025 Glomerular filtration rate [Volume Rate/Area] in Serum, Plasma or Blood by Creatinine 34.673 mL/Min [facility] Glucose [Mass/volume] in Ser um or PlasmaOrdered By: Kris Blair on 04-17-2025 Glucose [Mass/Vol] 110 mg/dL High 70-100 [facility] Comment on above: ADA recommended refe rence rangeRandom Glucose Reference Range is dependent on time and content of last meal. Glucose of more than 200 mg/dL in a nonstressed, ambulatory subject supports the diagnosis of Diabetes Mellitus. Result Comment: Neche om Glucose Reference Range is dependent on time and content of last meal. Glucose of more than 200 mg/dL in a nonstressed, ambulatory subject supports the diagnosis of Diabetes Mellitus. ADA recommended reference range Performed By: #### C MP, HS TROP, BNP, CK, PTT, CBC, PT #### [facility] [address] Hematocrit [Volume Fraction] of Blood by Automated countOrdered By: Kris Blair on 04-17-2025 Hematocrit (Bld) [Volume fraction] 38.9 % Normal 34.0-46.4 [facility] Comment on above: Performed By: #### C MP, HS TROP, BNP, CK, PTT, CBC, PT #### [facility] [address] Hemoglobin [Mass/volume] in BloodOrdered By: Kris Blair on 04-17-2025 Hemoglobin (Bld) [Mass/Vol] 13.3 g/dL Normal 11.8-15.4 [facility] Comment on above: Performed By: #### C MP, HS TROP, BNP, CK, PTT, CBC, PT #### [address] INR in Platelet poor plasma by Coagulation assayOrdered By: Kris Blair on 04-17-2025 INR Coag (PPP) [Relative time] 2.3 {INR} Normal [facility] Comment on above: INR Therapeutic Rang [...] with mechanical heart valves: 3 - 4.5 Result Comment: INR Therapeutic Range A) Pre- [...] heart valves: 3 - 4.5 PERFORMED BY: [place] [address] PATHOLOGIST ASTROPHYSICS TEACHER ABHILASH ARTIS M.D. Performed By: #### C MP, HS TROP, BNP, CK, PTT, CBC, PT #### [address] Leukocytes [#/volume] correc mayda for nucleated erythrocytes in Blood by Automated counOrdered By: Kris Blair on 04-17-2025 WBC corrected for nucl RBC Auto (Bld) [#/Vol] 8.4 10*3/uL 3.8-11.6 [facility] Leukocytes [#/volume] in Blo od by Automated countOrdered By: Kris Blair on 04-17-2025 WBC (Bld) [#/Vol] 8.4 10*3/uL Normal 3.8-11.6 [facility] Comment on above: Performed By: #### C MP, HS TROP, BNP, CK, PTT, CBC, PT #### [place] [address] [place] Lymphocytes [#/volume] in Bl ood by Automated countOrdered By: Kris Blair on 04-17-2025 Lymphocytes (Bld) [#/Vol] 1.7 10*3/uL Normal 1.00-4.8 [facility] Comment on above: Performed By: #### C MP, HS TROP, BNP, CK, PTT, CBC, PT #### [facility] [address] [place] [address] [place] Lymphocytes/100 leukocytes i n Blood by Automated countOrdered By: Kris Blair on 04-17-2025 Lymphocytes/100 WBC (Bld) 19.8 % Normal . [facility] Comment on above: Performed By: #### C MP, HS TROP, BNP, CK, PTT, CBC, PT #### [facility] [address] MCH [Entitic mass] by Automa mayda countOrdered By: Kris Blair on 04-17-2025 MCH (RBC) [Entitic mass] 30.9 pg Normal 24.7-34.3 [facility] Comment on above: Performed By: #### C MP, HS TROP, BNP, CK, PTT, CBC, PT #### [facility] [address] MCHC Auto (RBC) [Mass/Vol]Or dered By: Kris Blair on 04-17-2025 MCHC (RBC) [Mass/Vol] 34.1 g/dL 32.0-35.0 [facility] MCV [Entitic volume] by Auto mated countOrdered By: Kris Blair on 04-17-2025 MCV (RBC) [Entitic vol] 90.5 fL Normal 80-100 [facility] Comment on above: Performed By: #### C MP, HS TROP, BNP, CK, PTT, CBC, PT #### [facility] [address] [place] [address] [place] Monocyte distribution width [Entitic volume] in Blood by AutomatedOrdered By: Kris Blair on 04-17-2025 Monocyte distribution width Auto (Bld) [Entitic vol] 17.53 % 0.00-20.00 [facility] Monocytes [#/volume] in Bloo d by Automated countOrdered By: Kris Blair on 04-17-2025 Monocytes (Bld) [#/Vol] 0.9 10*3/uL High 0.0-0.8 [facility] Comment on above: Performed By: #### C MP, HS TROP, BNP, CK, PTT, CBC, PT #### [facility] [address] Monocytes/100 leukocytes in Blood by Automated countOrdered By: Kris Blair on 04-17-2025 Monocytes/100 WBC (Bld) 10.2 % Normal . [facility] Comment on above: Performed By: #### C MP, HS TROP, BNP, CK, PTT, CBC, PT #### [facility] [address] Neutrophils [#/volume] in Bl ood by Automated countOrdered By: Kris Blair on 04-17-2025 Neutrophils (Bld) [#/Vol] 5.7 10*3/uL Normal 1.8-7.7 [facility] Comment on above: Performed By: #### C MP, HS TROP, BNP, CK, PTT, CBC, PT #### [facility] [address] Neutrophils/100 leukocytes i n Blood by Automated countOrdered By: Kris Blair on 04-17-2025 Neutrophils/100 WBC (Bld) 67.4 % Normal . [facility] Comment on above: Performed By: #### C MP, HS TROP, BNP, CK, PTT, CBC, PT #### [facility] [address] [place] [address] No Panel InformationOrdered By: Kris Blair on 04-17-2025 Pharmacy Creatinine Clearance (Chem 30.15 [facility] Nucleated erythrocytes [Pres ence] in Blood by Automated countOrdered By: Kris Blair on 04-17-2025 Nucleated RBC Auto Ql (Bld) 0.0 /100{WBC} 0-0.5 [facility] Platelet mean volume [Entiti c volume] in Blood by Automated countOrdered By: Kris Blair on 04-17-2025 Platelet mean volume (Bld) [Entitic vol] 9.0 fL Normal 6.3-10.7 [facility] Comment on above: Performed By: #### C MP, HS TROP, BNP, CK, PTT, CBC, PT #### [facility] [address] Platelets [#/volume] in Bloo d by Automated countOrdered By: Kris Blair on 04-17-2025 Platelets (Bld) [#/Vol] 192 10*3/uL Normal 150-450 [facility] Comment on above: Performed By: #### C MP, HS TROP, BNP, CK, PTT, CBC, PT #### [facility] [address] Potassium [Moles/volume] in Serum or PlasmaOrdered By: Kris Blair on 04-17-2025 Potassium [Moles/Vol] 3.8 mmol/L Normal 3.5-5.1 [facility] Comment on above: Performed By: #### C MP, HS TROP, BNP, CK, PTT, CBC, PT #### [facility] [address] Protein [Mass/volume] in Ser um or PlasmaOrdered By: Kris Blair on 04-17-2025 Protein [Mass/Vol] 7.0 g/dL Normal 6.4-8.9 [facility] Comment on above: Performed By: #### C MP, HS TROP, BNP, CK, PTT, CBC, PT #### [facility] [address] Prothrombin time (PT)Ordered By: Kris Blair on 04-17-2025 PT Coag (PPP) [Time] 25.8 s High 9.0-12.9 [facility] Comment on above: A hematocrit value g reater than 55% may lead to inaccurate results in coagulation testing. Patients having hematocrit values >55% require a special collection tube for coagulation studies. Please contact the laboratory at [phone] for redraw instructions. Result Comment: A he matocrit value greater than 55% may lead to inaccurate results in coagulation testing. Patients having hematocrit values >55% require a special collection tube for coagulation studies. Please contact the laboratory at [phone] for redraw instructions. Performed By: #### C MP, HS TROP, BNP, CK, PTT, CBC, PT #### [address] Respiratory specimen influen za A virus, influenza B virus, respiratory syncytical virOrdered By: Kris Blair on 04-17-2025 SARS-CoV-2 (COVID-19) RNA ERICK+probe Ql (Unsp spec) [facility] Serum globulin measurement b y calculation (mass/volume)Ordered By: Kris Blair on 04-17-2025 Globulin (S) [Mass/Vol] 2.7 g/dL [facility] Comment on above: Performed By: #### C MP, HS TROP, BNP, CK, PTT, CBC, PT #### [address] Serum or plasma albumin/glob ulin mass ratioOrdered By: Kris Blair on 04-17-2025 Albumin/Globulin [Mass ratio] 1.6 {ratio} [facility] Comment on above: Performed By: #### C MP, HS TROP, BNP, CK, PTT, CBC, PT #### [address] Serum or plasma anion gap de terminationOrdered By: Kris Blair on 04-17-2025 Anion gap [Moles/Vol] 13.5 mmol/L Normal 6.0-15.0 [facility] Comment on above: Performed By: #### C MP, HS TROP, BNP, CK, PTT, CBC, PT #### [address] Sodium [Moles/volume] in Ser um or PlasmaOrdered By: Kris Blair on 04-17-2025 Sodium [Moles/Vol] 139 mmol/L Normal 136-145 [facility] Comment on above: Performed By: #### C MP, HS TROP, BNP, CK, PTT, CBC, PT #### [address] Troponin I High Sensitivityo n 04-17-2025 Troponin I High Sensitivity 11 Normal 0-15 [facility] Comment on above: Result Comment: The Troponin units of report have been changed to meet the Chest Pain Accreditation requirement, element EC5.M1l2. Troponin units are changed from pg/ml to ng/L. Also, the decimal is removed and results are in whole numbers. PERFORMED BY: [place] [address] PATHOLOGIST ASTROPHYSICS TEACHER ABHILASH ARTIS M.D. Performed By: #### C MP, HS TROP, BNP, CK, PTT, CBC, PT #### [address] Troponin I.cardiac [Mass/vol ume] in Serum or Plasma by Detection limit <= 0.01 ng/mLOrdered By: Kris Blair on 04-17-2025 Troponin I.cardiac DL <= 0.01 ng/mL [Mass/Vol] 11 ng/L 0-15 [facility] Comment on above: The Troponin units o f report have been changed to meet the Chest Pain Accreditation requirement, element EC5.M1l2. Troponin units are changed from pg/ml to ng/L. Also, the decimal is removed and results are in whole numbers. Urea nitrogen [Mass/volume] in Serum or PlasmaOrdered By: Kris Blair on 04-17-2025 Urea nitrogen [Mass/Vol] 29 mg/dL High 7-25 [facility] Comment on above: Performed By: #### C MP, HS TROP, BNP, CK, PTT, CBC, PT #### [facility] [address] [place] [address] [place] X-ray reportOrdered By: Wes Arambula on 04-17-2025 Study report [facility] [place] [address] XRay Report Signed Patient: Cece Hubbard MR#: [id number] : 1945 Acct:[id number] Age/Sex: 80 / F ADM Date: 5 Loc: ER Room: Type: [facility] ER Attending Dr: Copies to: Kris Blair DO~ Ordering Provider: Kris Blair DO Date of Service: 04/17/25 XR/XR chest 2V*: Shortness of Breath/Dyspnea Chest 2 views CLINICAL HISTORY: Shortness of breath cough for 3 to 4 days. COMPARISON: Chest 08/28/2024 FINDINGS: Heart normal in size. No lung consolidation, pneumothorax, pleural effusion or free air. XR/XR chest 2V* IMPRESSION: NO ACUTE CARDIOPULMONARY ABNORMALITY. Impression dictated by: Brett Arambula Jr., D.O. 04/17/2025 11:23 AM Dictation Location: RADIO-PC-18 Transcribed By: HERVE 04/17/25 112 Dictated By: Brett Arambula Jr, DO 04/17/251122 Signed By: 04/17/25 112 [facility] XR chest 2V*on 04-17-2025 XR chest 2V* [facility] [place] [address] XRay Report Signed Patient: Cece Hubbard MR#: [id number] 1827 : 1945 Acct:[id number] Age/Sex: 80 / F ADM Date: 04/17/25 Loc: ER Room: Type: [facility] ER Attending Dr: Copies to: Kris Blair DO Ordering Provider: Kris Blair DO Date of Service: 04/17/25 XR/XR chest 2V*: Shortness of Breath/Dyspnea Chest 2 views CLINICAL HISTORY: Shortness of breath cough for 3 to 4 days. COMPARISON: Chest 08/28/2024 FINDINGS: Heart normal in size. No lung consolidation, pneumothorax, pleural effusion or free air. XR/XR chest 2V* IMPRESSION: NO ACUTE CARDIOPULMONARY ABNORMALITY. Impression dictated by: Brett Arambula Jr., D.O. 04/17/2025 11:23 AM Dictation Location: RADIO-PC-18 Transcribed By: HERVE 04/17/25 112 Dictated By: Brett Arambula Jr, DO 04/17/251122 Signed By: 04/17/25 1123 Normal [facility] TRANSTHORACIC ECHO (TTE) [facility] 04-08-2025 TRANSTHORACIC ECHO (TTE) COMPLETE [address], [address], [place] [address] TRANSTHORACIC ECHOCARDIOGRAM REPORT Patient Name: CECE HUBBARD Reading Physician: [id number] Víctor Wills MD, [facility] Study Date: 04/08/2025 Ordering Provider: [id number] VÍCTOR WILLS MRN/PID: [id number] Fellow: Nurse: , RVT Date of /Age: 6 1945 Agent [employer] Desk: Zaria cat RD, RVT Gender Assigned at F Additional Staff: : Height: 160.02 cm Admit Date: Weight: 79.38 kg Admission Status: Outpatient BSA / BMI: 1.83 m2 / 31.00 Department Location: [facility] kg/m2 [place] Blood Pressure: 120 /64 mmHg Study Type: TRANSTHORACIC ECHO (TTE) COMPLETE Diagnosis/ICD: Atherosclerotic heart disease of tribe coronary artery without angina pectoris-I25.10; Nonrheumatic aortic (valve) insufficiency-I35.1 Indication: Paroxysmal Atrial Fibrillation, CAD, HTN, HLD, PTCA, Former Tobacco User, MR, CKD Stage III, Obesity CPT Codes: Echo Complete w Full Doppler-51896 Study Detail: The following Echo studies were [...] aortic valve area by VTI is 1.67 cm?? with a peak velocity of 1.41 m/s. [...] INSUFFICIENCY: Normal Ranges: MR Vmax: 494.50 cm/s (more content not included)... Normal ECG 12 [place] 10-04-2024 ECG revealed sinus bradycardia with nonspecific ST and T changes, abnormal ECG [facility] Work Phone: NM Heart Perfusion W stress and W radionuclide Derek 09-15-2024 Normal Lexiscan Myov iew cardiac perfusion stress test. No evidence of ischemia or myocardial infarction by perfusion imaging. Normal left ventricular systolic function, ejection fraction 73%. When compared to a study from 2014, no significant interval changes were seen. Signed by: Víctor Wills 09/15/2024 6:03 PM Dictation workstation: [id number] [facility] Interpreted By: Víctor Jamison, and James Petty STUDY: MYOCARDIAL PERFUSION STRESS TEST WITH LEXISCAN Performing facility: [facility], [address] [place] [address], [address], [place] [id number] [facility] Provider: Víctor Wills MD, [facility] PCP: Dr. Aleah Newell Supervising provider: Víctor Wills MD, [facility] INDICATION: CAD; HLD HISTORY: Gender: F; Age: 79 y/o ; Height: HT 160 cm cm; Weight: WT 79.379 kg kg. High Cholesterol; CAD; HTN; Arrhythmias;A-fib ICM CHF MVR Quit smoking 38 years ago. Cardiac catheterization on 2023. PTCA on 2023. COMPARISON: Previous echo testing completed [id number] at [facility]. ACCESSION NUMBER(S): [id number] ORDERING CLINICIAN: VÍCTOR WILLS TECHNIQUE: ONE DAY [...] There was no evidence of attenuation artifact. [facility] MM[facility] Víctor Wills M D - 09/15/2024 Interpreted By: Víctor Wills and Giannuzzi Michael STUDY: MYOCARDIAL PERFUSION STRESS TEST WITH LEXISCAN Performing facility: [facility], [address] [place] [address], [address], [place] [id number] [facility] Provider: Víctor Wills MD, [facility] PCP: Dr. Aleah Newell Supervising provider: Víctor Wills MD, [facility] INDICATION: CAD; HLD HISTORY: Gender: F; Age: 79 y/o ; Height: HT 160 cm cm; Weight: WT 79.379 kg kg. High Cholesterol; CAD; HTN; Arrhythmias;A-fib ICM CHF MVR Quit smoking 38 years ago. Cardiac catheterization on 2023. PTCA on 2023. COMPARISON: Previous echo testing completed [id number] at [facility]. ACCESSION NUMBER(S): [id number] ORDERING CLINICIAN: VÍCTOR WILLS TECHNIQUE: ONE DAY [...] Víctor Wills 09/15/2024 6:03 PM Dictation workstation: [id number] [facility] Work Phone: [facility] Work Phone: Radiology Study observation (narrative) [facility] Work Phone: NUCLEAR STRESS TESTon 2024 NUCLEAR STRESS TEST Interpreted By: Víctor Gallegos and Giannuzzi Michael STUDY: MYOCARDIAL PERFUSION STRESS TEST WITH LEXISCAN Performing facility: [facility], [address] [facility], [address], [address] Provider: Víctor Wills MD, [facility] PCP: Dr. Aleah Newell Supervising provider: Víctor Wills MD, [facility] INDICATION: CAD; HLD HISTORY: Gender: F; Age: 79 y/o ; Height: HT 160 cm cm; Weight: WT 79.379 kg kg. High Cholesterol; CAD; HTN; Arrhythmias;A-fib ICM CHF MVR Quit smoking 38 years ago. Cardiac catheterization on 2023. PTCA on 2023. COMPARISON: Previous echo testing completed [id number] at [facility]. ACCESSION NUMBER(S): [id number] ORDERING CLINICIAN: VÍCTOR WILLS TECHNIQUE: ONE DAY [...] Víctor Wills 09/15/2024 6:03 PM Dictation workstation: [id number] [facility] Alanine aminotransferase [En zymatic activity/volume] in Serum or PlasmaOrdered By: Lion Shook on 08-29-2024 ALT [Catalytic activity/Vol] Alanine aminotransferase [Enzymatic activity/volume] in Serum or Plasma 7-52 [facility] Albumin [Mass/volume] in Ser um or Plasma by Bromocresol green (BCG) dye binding methoOrdered By: Lion Shook on 08-29-2024 Albumin BCG dye [Mass/Vol] Albumin [Mass/volume] in Serum or Plasma by Bromocresol green (BCG) dye binding metho 3.5-5.7 [facility] Alkaline phosphatase [Enzyma tic activity/volume] in Serum or PlasmaOrdered By: Lion Shook on 08-29-2024 ALP [Catalytic activity/Vol] Alkaline phosphatase [Enzymatic activity/volume] in Serum or Plasma 34-104 [facility] Aspartate aminotransferase [ Enzymatic activity/volume] in Serum or PlasmaOrdered By: Lion Shook on 08-29-2024 AST [Catalytic activity/Vol] Aspartate aminotransferase [Enzymatic activity/volume] in Serum or Plasma Low 13-39 [facility] Basophils Auto (Bld) [#/Vol] Ordered By: Lion Shook on 08-29-2024 Basophils (Bld) [#/Vol] Automated basophil count 0.0-0.2 [facility] Basophils/100 WBC Auto (Bld) Ordered By: Lion Shook on 08-29-2024 Basophils/100 WBC (Bld) Automated basophil % . [facility] Bilirubin.total [Mass/volume ] in Serum or PlasmaOrdered By: Lion Shook on 08-29-2024 Bilirubin [Mass/Vol] Bilirubin.total [Mass/volume] in Serum or Plasma 0.3-1.0 [facility] Calcium [Mass/volume] in Ser um or PlasmaOrdered By: Lion Shook on 08-29-2024 Calcium [Mass/Vol] Calcium [Mass/volume ] in Serum or Plasma 8.6-10.3 [facility] Carbon dioxide, total [Moles /volume] in Serum or PlasmaOrdered By: Lion Shook on 08-29-2024 CO2 [Moles/Vol] Carbon dioxide, tota l [Moles/volume] in Serum or Plasma 21.0-31.0 [facility] Chloride [Moles/volume] in S calli or PlasmaOrdered By: Lion Shook on 08-29-2024 Chloride [Moles/Vol] Chloride [Moles/vol ume] in Serum or Plasma 98-107 [facility] Cholesterol [Mass/volume] in Serum or PlasmaOrdered By: Lion Shook on 08-29-2024 Cholesterol [Mass/Vol] Cholesterol [Mass /volume] in Serum or Plasma Low 140-200 [facility] Comment on above: Chol less than 200 m g/dl low riskChol 201-239 mg/dl borderline riskChol 240 mg/dl and greater high risk Cholesterol in HDL [Mass/vol ume] in Serum or PlasmaOrdered By: Lion Shook on 08-29-2024 Cholesterol in HDL [Mass/Vol] Serum or plasma high density lipoprotein (HDL) cholesterol measurement 23-92 [facility] Comment on above: HDL CHOL ATP-III CLA SSIFICATION Cardiovascular RiskHDL > or equal to 60 mg/dL LOWHDL < 40 mg/dL HIGH Cholesterol in LDL Calc [Mas s/Vol]Ordered By: Lion Shook on 08-29-2024 Cholesterol in LDL [Mass/Vol] Cholesterol in LDL [Mass/volume] in Serum or Plasma by calculation 0-100 [facility] Comment on above: LDL ATP III CLASSIFI CATIONLDL less than 100 mg/dL OptimalLDL 100-129 mg/dL Near or above optimalLDL 130-159 mg/dL Borderline highLDL 160-189 mg/dL HighLDL greater than 189 mg/dL Very high Cholesterol in VLDL Calc [Ma ss/Vol]Ordered By: Lion Shook on 08-29-2024 Cholesterol in VLDL [Mass/Vol] Cholesterol in VLDL [Mass/volume] in Serum or Plasma by calculation [facility] Complete Blood Count Auto Di ffon 08-29-2024 Basophils (Bld) [#/Vol] 0.1 10*3/uL Normal 0.0-0.2 [facility] Comment on above: Result Comment: PERF ORMED BY: [place] [address] PATHOLOGIST ASTROPHYSICS TEACHER PRO GOMEZ M.D. Performed By: #### C MP, HS TROP, BNP, CK, PTT, CBC, PT #### [address] Basophils/100 WBC (Bld) 0.9 % Normal . [facility] Comment on above: Performed By: #### C MP, HS TROP, BNP, CK, PTT, CBC, PT #### [address] Eosinophils (Bld) [#/Vol] 0.2 10*3/uL Normal 0.0-0.45 [facility] Comment on above: Performed By: #### C MP, HS TROP, BNP, CK, PTT, CBC, PT #### [address] Eosinophils/100 WBC (Bld) 2.0 % Normal . [facility] Comment on above: Performed By: #### C MP, HS TROP, BNP, CK, PTT, CBC, PT #### [address] Erythrocyte distribution width (RBC) [Ratio] 16.3 % High 11.9-15.3 [facility] Comment on above: Performed By: #### C MP, HS TROP, BNP, CK, PTT, CBC, PT #### [address] Hematocrit (Bld) [Volume fraction] 37.9 % Normal 34.0-46.4 [facility] Comment on above: Performed By: #### C MP, HS TROP, BNP, CK, PTT, CBC, PT #### [address] Hemoglobin (Bld) [Mass/Vol] 13.0 g/dL Normal 11.8-15.4 [facility] Comment on above: Performed By: #### C MP, HS TROP, BNP, CK, PTT, CBC, PT #### [address] Lymphocytes (Bld) [#/Vol] 1.5 10*3/uL Normal 1.00-4.8 [facility] Comment on above: Performed By: #### C MP, HS TROP, BNP, CK, PTT, CBC, PT #### [address] Lymphocytes/100 WBC (Bld) 19.2 % Normal . [facility] Comment on above: Performed By: #### C MP, HS TROP, BNP, CK, PTT, CBC, PT #### [address] MCH (RBC) [Entitic mass] 29.7 pg Normal 24.7-34.3 [facility] Comment on above: Performed By: #### C MP, HS TROP, BNP, CK, PTT, CBC, PT #### [address] MCV (RBC) [Entitic vol] 86.2 fL Normal 80-100 [facility] Comment on above: Performed By: #### C MP, HS TROP, BNP, CK, PTT, CBC, PT #### [address] Mean Corpuscular HGB Conc 34.5 g/dL Normal 32.0-35.0 [facility] Comment on above: Performed By: #### C MP, HS TROP, BNP, CK, PTT, CBC, PT #### [address] Monocytes (Bld) [#/Vol] 1.2 10*3/uL High 0.0-0.8 [facility] Comment on above: Performed By: #### C MP, HS TROP, BNP, CK, PTT, CBC, PT #### [address] Monocytes/100 WBC (Bld) 15.4 % Normal . [facility] Comment on above: Performed By: #### C MP, HS TROP, BNP, CK, PTT, CBC, PT #### [address] Neutrophils (Bld) [#/Vol] 4.9 10*3/uL Normal 1.8-7.7 [facility] Comment on above: Performed By: #### C MP, HS TROP, BNP, CK, PTT, CBC, PT #### [address] Neutrophils/100 WBC (Bld) 62.5 % Normal . [facility] Comment on above: Performed By: #### C MP, HS TROP, BNP, CK, PTT, CBC, PT #### [address] NRBC% 0.1 /100{WBC} Normal 0-0.5 [facility] Comment on above: Performed By: #### C MP, HS TROP, BNP, CK, PTT, CBC, PT #### [address] Platelet mean volume (Bld) [Entitic vol] 8.5 fL Normal 6.3-10.7 [facility] Comment on above: Performed By: #### C MP, HS TROP, BNP, CK, PTT, CBC, PT #### [address] Platelets (Bld) [#/Vol] 251 10*3/uL Normal 150-450 [facility] Comment on above: Performed By: #### C MP, HS TROP, BNP, CK, PTT, CBC, PT #### [address] RBC (Bld) [#/Vol] 4.39 10*6/uL Normal 3.60-5.00 [facility] Comment on above: Performed By: #### C MP, HS TROP, BNP, CK, PTT, CBC, PT #### [address] WBC (Bld) [#/Vol] 7.9 10*3/uL Normal 3.8-11.6 [facility] Comment on above: Performed By: #### C MP, HS TROP, BNP, CK, PTT, CBC, PT #### [address] Comprehensive Metabolic Pane anselmo 08-29-2024 Albumin [Mass/Vol] 3.7 g/dL Normal 3.5-5.7 [facility] Comment on above: Performed By: #### C MP, T4F, LIPID, T3F, TSH3, MG #### [address] Albumin/Globulin [Mass ratio] 1.3 {ratio} Normal [facility] Comment on above: Performed By: #### C MP, T4F, LIPID, T3F, TSH3, MG #### [address] ALP [Catalytic activity/Vol] 97 U/L Normal 34-104 [facility] Comment on above: Performed By: #### C MP, T4F, LIPID, T3F, TSH3, MG #### [address] ALT [Catalytic activity/Vol] 11 U/L Normal 7-52 [facility] Comment on above: Performed By: #### C MP, T4F, LIPID, T3F, TSH3, MG #### [address] Anion gap [Moles/Vol] 13.3 mmol/L Normal 6.0-15.0 [facility] Comment on above: Performed By: #### C MP, T4F, LIPID, T3F, TSH3, MG #### [address] AST [Catalytic activity/Vol] 12 U/L Low 13-39 [facility] Comment on above: Performed By: #### C MP, T4F, LIPID, T3F, TSH3, MG #### [address] Bilirubin [Mass/Vol] 0.9 mg/dL Normal 0.3-1.0 [facility] Comment on above: Performed By: #### C MP, T4F, LIPID, T3F, TSH3, MG #### [address] Calcium [Mass/Vol] 9.3 mg/dL Normal 8.6-10.3 [facility] Comment on above: Performed By: #### C MP, T4F, LIPID, T3F, TSH3, MG #### [address] Chloride [Moles/Vol] 102 mmol/L Normal 98-107 [facility] Comment on above: Performed By: #### C MP, T4F, LIPID, T3F, TSH3, MG #### [address] CO2 [Moles/Vol] 25.8 mmol/L Normal 21.0-31.0 [facility] Comment on above: Performed By: #### C MP, T4F, LIPID, T3F, TSH3, MG #### [address] Creatinine [Mass/Vol] 1.20 mg/dL Normal 0.60-1.20 [facility] Comment on above: Performed By: #### C MP, T4F, LIPID, T3F, TSH3, MG #### [address] Creatinine Clr Calc Pharmacy 37.87 Normal [facility] Comment on above: Performed By: #### C MP, T4F, LIPID, T3F, TSH3, MG #### [address] Estimated GFR 46.333 mL/Min Normal [facility] Comment on above: Performed By: #### C MP, T4F, LIPID, T3F, TSH3, MG #### [facility] [address] Globulin (S) [Mass/Vol] 2.9 g/dL Normal [facility] Comment on above: Performed By: #### C MP, T4F, LIPID, T3F, TSH3, MG #### [facility] [address] Glucose [Mass/Vol] 100 mg/dL Normal 70-100 [facility] Comment on above: Result Comment: [facility] Glucose Reference Range is dependent on time and content of last meal. Glucose of more than 200 mg/dL in a nonstressed, ambulatory subject supports the diagnosis of Diabetes Mellitus. ADA recommended reference range Performed By: #### C MP, T4F, LIPID, T3F, TSH3, MG #### [address] Potassium [Moles/Vol] 4.1 mmol/L Normal 3.5-5.1 [facility] Comment on above: Performed By: #### C MP, T4F, LIPID, T3F, TSH3, MG #### [facility] [address] [place] [address] [place] Protein [Mass/Vol] 6.6 g/dL Normal 6.4-8.9 [facility] Comment on above: Performed By: #### C MP, T4F, LIPID, T3F, TSH3, MG #### [place] [address] [place] Sodium [Moles/Vol] 137 mmol/L Normal 136-145 [facility] Comment on above: Performed By: #### C MP, T4F, LIPID, T3F, TSH3, MG #### [place] [address] [place] Urea nitrogen [Mass/Vol] 23 mg/dL Normal 7-25 [facility] Comment on above: Performed By: #### C MP, T4F, LIPID, T3F, TSH3, MG #### [address] Creatinine [Mass/volume] in Serum or PlasmaOrdered By: Lion Bouchra on 08-29-2024 Creatinine [Mass/Vol] Creatinine [Mass/v olume] in Serum or Plasma 0.60-1.20 [facility] Eosinophils Auto (Bld) [#/Vo l]Ordered By: Lion Shook on 08-29-2024 Eosinophils (Bld) [#/Vol] Automated eosinophil count 0.0-0.45 [facility] Eosinophils/100 WBC Auto (Bl d)Ordered By: Lion Shook on 08-29-2024 Eosinophils/100 WBC (Bld) Automated eosinophil % . [facility] Erythrocyte distribution wid th Auto (RBC) [Ratio]Ordered By: Lion Shook on 08-29-2024 Erythrocyte distribution width (RBC) [Ratio] Erythrocyte distribution width [Ratio] by Automated count High 11.9-15.3 [facility] Free T4 (Free Thyroxine)on 0 08-29-2024 Free T4 [Mass/Vol] 0.99 ng/dL Normal 0.61-1.12 [facility] Comment on above: Performed By: #### C MP, HS TROP, BNP, CK, PTT, CBC, PT #### [facility] [address] Globulin Calc (S) [Mass/Vol] Ordered By: Lion Shook on 08-29-2024 Globulin (S) [Mass/Vol] Serum globulin measurement by calculation (mass/volume) [facility] Glucose [Mass/volume] in Ser um or PlasmaOrdered By: Lion Shook on 08-29-2024 Glucose [Mass/Vol] Glucose [Mass/volume ] in Serum or Plasma 70-100 [facility] Comment on above: ADA recommended refe rence rangeRandom Glucose Reference Range is dependent on time and content of last meal. Glucose of more than 200 mg/dL in a nonstressed, ambulatory subject supports the diagnosis of Diabetes Mellitus. Hematocrit Auto (Bld) [Volum e fraction]Ordered By: Lion Shook on 08-29-2024 Hematocrit (Bld) [Volume fraction] Hematocrit [Volume Fraction] of Blood by Automated count 34.0-46.4 [facility] Hemoglobin [Mass/volume] in BloodOrdered By: Lion Shook on 08-29-2024 Hemoglobin (Bld) [Mass/Vol] Hemoglobin [Mass/volume] in Blood 11.8-15.4 [facility] INR in Platelet poor plasma by Coagulation assayOrdered By: Lion Shook on 08-29-2024 INR Coag (PPP) [Relative time] INR in Platelet poor plasma by Coagulation assay [facility] Comment on above: INR Therapeutic Rang [...] erythrocytes in Blood by Automated coun 3.8-11.6 [facility] Lipid Panelon 08-29-2024 Cholesterol [Mass/Vol] 91 mg/dL Low 140-200 [facility] Comment on above: Result Comment: Chol less than 200 mg/dl low risk Chol 201-239 mg/dl borderline risk Chol 240 mg/dl and greater high risk Performed By: #### C MP, HS TROP, BNP, CK, PTT, CBC, PT #### [facility] [address] Cholesterol in HDL [Mass/Vol] 41 mg/dL Normal 23-92 [facility] Comment on above: Result Comment: HDL CHOL ATP-III CLASSIFICATION Cardiovascular Risk HDL > or equal to 60 mg/dL LOW HDL < 40 mg/dL HIGH Performed By: #### C MP, HS TROP, BNP, CK, PTT, CBC, PT #### [facility] [address] [place] [address] [facility] Cholesterol.total/Chol esterol in HDL [Mass ratio] 2.2 {ratio} Normal <5.0 [facility] Comment on above: Performed By: #### C MP, HS TROP, BNP, CK, PTT, CBC, PT #### [facility] [address] LDL Cholesterol,Calculated 29 mg/dL Normal 0-100 [facility] Comment on above: Result Comment: LDL ATP III CLASSIFICATION LDL less than 100 mg/dL Optimal LDL 100-129 mg/dL Near or above optimal LDL 130-159 mg/dL Borderline high LDL 160-189 mg/dL High LDL greater than 189 mg/dL Very high Performed By: #### C MP, HS TROP, BNP, CK, PTT, CBC, PT #### [facility] [address] Triglyceride w/Reflex 107 mg/dL Normal 0-149 [facility] Comment on above: Result Comment: TRIG ATP III CLASSIFICATION TRIG less than 150 mg/dL Normal TRIG 150-199 mg/dL Borderline high TRIG 200-500 mg/dL High TRIG greater than 500 mg/dL Very high Standard traceable to the Center for Disease Conrtrol and Prevention (CDC) test method. Performed By: #### C MP, HS TROP, BNP, CK, PTT, CBC, PT #### [facility] [address] VLDL CHOLESTEROL 21 mg/dL Normal [facility] Comment on above: Performed By: #### C MP, HS TROP, BNP, CK, PTT, CBC, PT #### [facility] [address] Lymphocytes Auto (Bld) [#/Vo l]Ordered By: Lion Shook on 08-29-2024 Lymphocytes (Bld) [#/Vol] Lymphocytes [#/volume] in Blood by Automated count 1.00-4.8 [facility] Lymphocytes/100 WBC Auto (Bl d)Ordered By: Lion Shook on 08-29-2024 Lymphocytes/100 WBC (Bld) Lymphocytes/100 leukocytes in Blood by Automated count . [facility] MCH Auto (RBC) [Entitic mass ]Ordered By: Lion Shook on 08-29-2024 MCH (RBC) [Entitic mass] MCH [Entitic mass] by Automated count 24.7-34.3 [facility] MCHC Auto (RBC) [Mass/Vol]Or dered By: Lion Alfaromood on 08-29-2024 MCHC (RBC) [Mass/Vol] MCHC [Mass/volume] by Automated count 32.0-35.0 [facility] MCV Auto (RBC) [Entitic vol] Ordered By: Lion Alfaromood on 08-29-2024 MCV (RBC) [Entitic vol] MCV [Entitic volume] by Automated count 80-100 [facility] Magnesiumon 08-29-2024 Magnesium [Mass/Vol] 1.7 mg/dL Low 1.9-2.7 [facility] Comment on above: Performed By: #### C MP, HS TROP, BNP, CK, PTT, CBC, PT #### [address] Magnesium [Mass/volume] in S calli or PlasmaOrdered By: Lion Shook on 08-29-2024 Magnesium [Mass/Vol] Magnesium [Mass/vol ume] in Serum or Plasma Low 1.9-2.7 [facility] Monocytes Auto (Bld) [#/Vol] Ordered By: Lion Shook on 08-29-2024 Monocytes (Bld) [#/Vol] Automated blood monocyte count High 0.0-0.8 [facility] Monocytes/100 WBC Auto (Bld) Ordered By: Lion Shook on 08-29-2024 Monocytes/100 WBC (Bld) Automated monocyte % . [facility] Neutrophils Auto (Bld) [#/Vo l]Ordered By: Lion Shook on 08-29-2024 Neutrophils (Bld) [#/Vol] Neutrophils [#/volume] in Blood by Automated count 1.8-7.7 [facility] Neutrophils/100 WBC Auto (Bl d)Ordered By: Lion Alfaromood on 08-29-2024 Neutrophils/100 WBC (Bld) Automated neutrophil % . [facility] No Panel InformationOrdered By: Lion Shook on 08-29-2024 Estimated GFR (CKD-EPI) 46.333 mL/Min [facility] Creatinine Clearance (Chem 37.87 [facility] Nucleated erythrocytes [Pres ence] in Blood by Automated countOrdered By: Lion Shook on 08-29-2024 Nucleated RBC Auto Ql (Bld) Nucleated erythrocytes [Presence] in Blood by Automated count 0-0.5 [facility] Platelet mean volume Auto (B ld) [Entitic vol]Ordered By: Lion Shook on 08-29-2024 Platelet mean volume (Bld) [Entitic vol] Platelet mean volume [Entitic volume] in Blood by Automated count 6.3-10.7 [facility] Platelets Auto (Bld) [#/Vol] Ordered By: Lion Shook on 08-29-2024 Platelets (Bld) [#/Vol] Platelets [#/volume] in Blood by Automated count 150-450 [facility] Potassium [Moles/volume] in Serum or PlasmaOrdered By: Lion Shook on 08-29-2024 Potassium [Moles/Vol] Potassium [Moles/v olume] in Serum or Plasma 3.5-5.1 [facility] Protein [Mass/volume] in Ser um or PlasmaOrdered By: Lion Shook on 08-29-2024 Protein [Mass/Vol] Protein [Mass/volume ] in Serum or Plasma 6.4-8.9 [facility] Prothrombin Time INRon 08-29 INR Coag (PPP) [Relative time] 4.4 {INR} Normal [facility] Comment on above: [...] heart valves: 3 - 4.5 PERFORMED BY: [place] [address] PATHOLOGIST ASTROPHYSICS TEACHER PRO GOMEZ M.D. Performed By: #### P T #### [place] [address] [place] PT Coag (PPP) [Time] 48.7 s High 9.0-12.9 [facility] Comment on above: Result Comment: A he matocrit value greater than 55% may lead to inaccurate results in coagulation testing. Patients having hematocrit values >55% require a special collection tube for coagulation studies. Please contact the laboratory at [phone] for redraw instructions. Performed By: #### P T #### [facility] [address] [place] [id number] [facility] Prothrombin time (PT)Ordered By: Lion Shook on 08-29-2024 PT Coag (PPP) [Time] Prothrombin time (PT) High 9.0- 12.9 [facility] Comment on above: A hematocrit value g reater than 55% may lead to inaccurate results in coagulation testing. Patients having hematocrit values >55% require a special collection tube for coagulation studies. Please contact the laboratory at [phone] for redraw instructions. RBC Auto (Bld) [#/Vol]Ordere d By: Lion Shook on 08-29-2024 RBC (Bld) [#/Vol] Erythrocytes [#/volu me] in Blood by Automated count 3.60-5.00 [facility] Serum or plasma albumin/glob ulin mass ratioOrdered By: Lion Shook on 08-29-2024 Albumin/Globulin [Mass ratio] Serum or plasma albumin/globulin mass ratio [facility] Serum or plasma anion gap de terminationOrdered By: Lion Shook on 08-29-2024 Anion gap [Moles/Vol] Serum or plasma an ion gap determination 6.0-15.0 [facility] Serum or plasma total choles terol/high density lipoprotein (HDL) cholesterol mass ratOrdered By: Lion Shook on 08-29-2024 Cholesterol.total/Chol esterol in HDL [Mass ratio] Serum or plasma total cholesterol/high density lipoprotein (HDL) cholesterol mass rat <5.0 [facility] Sodium [Moles/volume] in Ser um or PlasmaOrdered By: Lion Shook on 08-29-2024 Sodium [Moles/Vol] Sodium [Moles/volume ] in Serum or Plasma 136-145 [facility] Thyroid Stimulating Hormoneo n 08-29-2024 TSH Qn 2.68 m[IU]/L Normal 0.45-5.33 [facility] Comment on above: Result Comment: PERF ORMED BY: [place] [id number] PATHOLOGIST ASTROPHYSICS TEACHER PRO GOMEZ M.D. Performed By: #### C MP, HS TROP, BNP, CK, PTT, CBC, PT #### [place] [id number] [place] [facility] Thyrotropin [Units/volume] i n Serum or PlasmaOrdered By: Lion Shook on 08-29-2024 TSH Qn Thyrotropin [Units/v olume] in Serum or Plasma 0.45-5.33 [facility] Thyroxine (T4) free [Mass/vo lume] in Serum or PlasmaOrdered By: Lion Shook on 08-29-2024 Free T4 [Mass/Vol] Thyroxine (T4) free [Mass/volume] in Serum or Plasma 0.61-1.12 [facility] Triglyceride [Mass/volume] i n Serum or PlasmaOrdered By: Lion Shook on 08-29-2024 Triglyceride [Mass/Vol] Triglyceride [Mass/volume] in Serum or Plasma 0-149 [facility] Comment on above: TRIG ATP III CLASSIF ICATIONTRIG less than 150 mg/dL NormalTRIG 150-199 mg/dL Borderline highTRIG 200-500 mg/dL High TRIG greater than 500 mg/dL Very highStandard traceable to the Center for Disease Conrtrol and Prevention (CDC) test method. Triiodothyronine (T3) Freeon 08-29-2024 Triiodothyronine (T3) Free 2.55 pg/mL Normal 2.50-3.90 [facility] Comment on above: Result Comment: PERF ORMED BY: [address] [address] PATHOLOGIST ASTROPHYSICS TEACHER PRO GOMEZ M.D. Performed By: #### C MP, T4F, LIPID, T3F, TSH3, MG #### [facility] [address] [place] [id number] [facility] Triiodothyronine (T3) Free [ Mass/volume] in Serum or PlasmaOrdered By: Lion Shook on 08-29-2024 Free T3 [Mass/Vol] Triiodothyronine (T3 ) Free [Mass/volume] in Serum or Plasma 2.50-3.90 [facility] Urea nitrogen [Mass/volume] in Serum or PlasmaOrdered By: Lion Shook on 08-29-2024 Urea nitrogen [Mass/Vol] Urea nitrogen [Mass/volume] in Serum or Plasma 7-25 [facility] WBC Auto (Bld) [#/Vol]Ordere d By: Lion Shook on 08-29-2024 WBC (Bld) [#/Vol] Leukocytes [#/volume ] in Blood by Automated count 3.8-11.6 [facility] Alanine aminotransferase [En zymatic activity/volume] in Serum or PlasmaOrdered By: Bernardo Russell on 08-28-2024 ALT [Catalytic activity/Vol] Alanine aminotransferase [Enzymatic activity/volume] in Serum or Plasma 7-52 [facility] Albumin [Mass/volume] in Ser um or Plasma by Bromocresol green (BCG) dye binding methoOrdered By: Bernardo Russell on 08-28-2024 Albumin BCG dye [Mass/Vol] Albumin [Mass/volume] in Serum or Plasma by Bromocresol green (BCG) dye binding metho 3.5-5.7 [facility] Alkaline phosphatase [Enzyma tic activity/volume] in Serum or PlasmaOrdered By: Bernardo Russell on 08-28-2024 ALP [Catalytic activity/Vol] Alkaline phosphatase [Enzymatic activity/volume] in Serum or Plasma 34-104 [facility] Appearance of UrineOrdered B y: Bernardo Russell on 08-28-2024 Appearance (U) Urine appearance Abnormal Clear [facility] Aspartate aminotransferase [ Enzymatic activity/volume] in Serum or PlasmaOrdered By: Bernardo Russell on 08-28-2024 AST [Catalytic activity/Vol] Aspartate aminotransferase [Enzymatic activity/volume] in Serum or Plasma Low 13-39 [facility] B-Type Natriuretic Peptideon 08-28-2024 Natriuretic peptide B (Bld) [Mass/Vol] 1127.0 pg/mL High 5-100 [facility] Comment on above: Result Comment: PERF ORMED BY: [place] [address] PATHOLOGIST ASTROPHYSICS TEACHER PRO GOMEZ M.D. Performed By: #### C MP, HS TROP, BNP, CK, PTT, CBC, PT #### [facility] [address] Bacteria [Presence] in Urine by AutomatedOrdered By: Bernardo Russell on 08-28-2024 Bacteria Auto Ql (U) Bacteria [Presence] in Urine by Automated None Seen [facility] Bilirubin Test strip Ql (U)O rdered By: Bernardo Russell on 08-28-2024 Bilirubin Ql (U) Bilirubin.total [Pre sence] in Urine by Test strip Negative [facility] Bilirubin.total [Mass/volume ] in Serum or PlasmaOrdered By: Bernardo Russell on 08-28-2024 Bilirubin [Mass/Vol] Bilirubin.total [Mass/volume] in Serum or Plasma High 0.3-1.0 [facility] Comment on above: Samples from patient s who have taken Naproxen have shown spurious elevation in Total Bilirubin levels. A metabolite of Naproxen, O-desmethylnaproxen, has been shown to interfere with the Shine-Breanne method for measuring Total Bilirubin. COVID Cepheid NegativeOrdere d By: Bernardo Russell on 08-28-2024 SARS-CoV-2 (COVID-19) Ab IA Ql COVID Cepheid Negative [facility] Comment on above: This is a [...] or Cepheid Disclaimer revoked sooner. PERFORMED BY: [facility] [address] [place] [address] PATHOLOGIST ASTROPHYSICS TEACHER PRO GOMEZ M.D. Normal [facility] Comment on above: Performed By: #### C MP, HS TROP, BNP, CK, PTT, CBC, PT #### [facility] [address] [place] [address] [facility] CT abdomen pelvis w william CT abdomen pelvis w [facility] [place] [address] [place] [address] CT Scan Report Signed Patient: Cece Hubbard MR#: [id number] 1827 : 1945 Acct:[id number] Age/Sex: 79 / F ADM Date: 08/28/24 Loc: ER Room: Type: [facility] ER Attending Dr: Copies to: Bernardo [...] Elvin Cantu M.D.08/28/2024 3:28 PM Dictation Location: [place] [address] Transcribed By: [facility] 08/28/24 1528 Dictated By: Elvin Cantu MD 08/28/24 1514 Signed By: 08/28/24 1528 Normal [facility] Calcium [Mass/volume] in Ser um or PlasmaOrdered By: Bernardo Russell on 08-28-2024 Calcium [Mass/Vol] Calcium [Mass/volume ] in Serum or Plasma 8.6-10.3 [facility] Carbon dioxide, total [Moles /volume] in Serum or PlasmaOrdered By: Bernardo Russell on 08-28-2024 CO2 [Moles/Vol] Carbon dioxide, tota l [Moles/volume] in Serum or Plasma 21.0-31.0 [facility] Cepheid COVID PCR Negativeon 08-28-2024 SARS-CoV-2 (COVID-19) RNA ERICK+probe Ql (Unsp spec) Negative Normal Negative [facility] Comment on above: Result Comment: This is a duplicate Cepheid Xpert Xpress CoV-2/Flu/RSV Plus RNA by RT-PCR result to be used for statistical tracking purpose only. PERFORMED BY: [place] [address] PATHOLOGIST ASTROPHYSICS TEACHER PRO GOMEZ M.D. Performed By: #### C MP, HS TROP, BNP, CK, PTT, CBC, PT #### [place] [address] [place] Chloride [Moles/volume] in S calli or PlasmaOrdered By: Bernardo Russell on 08-28-2024 Chloride [Moles/Vol] Chloride [Moles/vol ume] in Serum or Plasma 98-107 [facility] Color Auto (U)Ordered By: Jose Russell on 08-28-2024 Color (U) Color of Urine by Auto Yellow [facility] Pane anselmo 08-28-2024 Albumin [Mass/Vol] 3.9 g/dL Normal 3.5-5.7 [facility] Comment on above: Performed By: #### C MP, HS TROP, BNP, CK, PTT, CBC, PT #### [address] Albumin/Globulin [Mass ratio] 1.3 {ratio} Normal [facility] Comment on above: Performed By: #### C MP, HS TROP, BNP, CK, PTT, CBC, PT #### [place] [address] ALP [Catalytic activity/Vol] 104 U/L Normal 34-104 [facility] Comment on above: Performed By: #### C MP, HS TROP, BNP, CK, PTT, CBC, PT #### [facility] [address] ALT [Catalytic activity/Vol] 13 U/L Normal 7-52 [facility] Comment on above: Performed By: #### C MP, HS TROP, BNP, CK, PTT, CBC, PT #### [address] Anion gap [Moles/Vol] 13.5 mmol/L Normal 6.0-15.0 [facility] Comment on above: Performed By: #### C MP, HS TROP, BNP, CK, PTT, CBC, PT #### [address] AST [Catalytic activity/Vol] 12 U/L Low 13-39 [facility] Comment on above: Performed By: #### C MP, HS TROP, BNP, CK, PTT, CBC, PT #### [address] Bilirubin [Mass/Vol] 1.4 mg/dL High 0.3-1.0 [facility] Comment on above: Result Comment: Samp les from patients who have taken Naproxen have shown spurious elevation in Total Bilirubin levels. A metabolite of Naproxen, O-desmethylnaproxen, has been shown to interfere with the Jendrassik-Grof method for measuring Total Bilirubin. Performed By: #### C MP, HS TROP, BNP, CK, PTT, CBC, PT #### [address] Calcium [Mass/Vol] 9.4 mg/dL Normal 8.6-10.3 [facility] Comment on above: Performed By: #### C MP, HS TROP, BNP, CK, PTT, CBC, PT #### [place] [address] [place] Chloride [Moles/Vol] 104 mmol/L Normal 98-107 [facility] Comment on above: Performed By: #### C MP, HS TROP, BNP, CK, PTT, CBC, PT #### [address] CO2 [Moles/Vol] 23.6 mmol/L Normal 21.0-31.0 [facility] Comment on above: Performed By: #### C MP, HS TROP, BNP, CK, PTT, CBC, PT #### [address] Creatinine [Mass/Vol] 1.16 mg/dL Normal 0.60-1.20 [facility] Comment on above: Performed By: #### C MP, HS TROP, BNP, CK, PTT, CBC, PT #### [address] Creatinine Clr Calc Pharmacy 40.65 Normal [facility] Comment on above: Result Comment: PERF ORMED BY: [place] [address] PATHOLOGIST ASTROPHYSICS TEACHER PRO GOMEZ M.D. Performed By: #### C MP, HS TROP, BNP, CK, PTT, CBC, PT #### [address] Estimated GFR 48.257 mL/Min Normal [facility] Comment on above: Performed By: #### C MP, HS TROP, BNP, CK, PTT, CBC, PT #### [address] Globulin (S) [Mass/Vol] 3.1 g/dL Normal [facility] Comment on above: Performed By: #### C MP, HS TROP, BNP, CK, PTT, CBC, PT #### [address] Glucose [Mass/Vol] 96 mg/dL Normal 70-100 [facility] Comment on above: Result Comment: Neche Glucose Reference Range is dependent on time and content of last meal. Glucose of more than 200 mg/dL in a nonstressed, ambulatory subject supports the diagnosis of Diabetes Mellitus. ADA recommended reference range Performed By: #### C MP, HS TROP, BNP, CK, PTT, CBC, PT #### [address] Potassium [Moles/Vol] 4.1 mmol/L Normal 3.5-5.1 [facility] Comment on above: Performed By: #### C MP, HS TROP, BNP, CK, PTT, CBC, PT #### [address] Protein [Mass/Vol] 7.0 g/dL Normal 6.4-8.9 [facility] Comment on above: Performed By: #### C MP, HS TROP, BNP, CK, PTT, CBC, PT #### [address] Sodium [Moles/Vol] 137 mmol/L Normal 136-145 [facility] Comment on above: Performed By: #### C MP, HS TROP, BNP, CK, PTT, CBC, PT #### [address] Urea nitrogen [Mass/Vol] 18 mg/dL Normal 7-25 [facility] Comment on above: Performed By: #### C MP, HS TROP, BNP, CK, PTT, CBC, PT #### [address] Creatinine [Mass/volume] in Serum or PlasmaOrdered By: Bernardo Russell on 08-28-2024 Creatinine [Mass/Vol] Creatinine [Mass/v olume] in Serum or Plasma 0.60-1.20 [facility] Crystals [Presence] in Urine by AutomatedOrdered By: Bernardo Russell on 08-28-2024 Crystals Auto Ql (U) Crystals [Presence] in Urine by Automated [facility] Dipstick and Microscopicon 0 08-28-2024 Appearance (U) Cloudy Critically abnormal Clear [facility] Comment on above: Order Comment: Name Collection Type:: Clean-Voided Midstream Performed By: #### C MP, HS TROP, BNP, CK, PTT, CBC, PT #### [address] Bacteria,Urine Rare Normal None Seen [facility] Comment on above: Order Comment: Name Collection Type:: Clean-Voided Midstream Performed By: #### C MP, HS TROP, BNP, CK, PTT, CBC, PT #### [facility] [address] [place] [address] [place] Bilirubin,Urine Negative Normal Negative [facility] Comment on above: Order Comment: Name Collection Type:: Clean-Voided Midstream Performed By: #### C MP, HS TROP, BNP, CK, PTT, CBC, PT #### [place] [address] [place] Color (U) Yellow Normal Yellow [facility] Comment on above: Order Comment: Name Collection Type:: Clean-Voided Midstream Performed By: #### C MP, HS TROP, BNP, CK, PTT, CBC, PT #### [address] Glucose Ql (U) Normal Normal Normal [facility] Comment on above: Order Comment: Name Collection Type:: Clean-Voided Midstream Performed By: #### C MP, HS TROP, BNP, CK, PTT, CBC, PT #### [place] [address] [place] Hyaline Casts,Urine 0 [LPF] Normal 0-8 [facility] Comment on above: Order Comment: Name Collection Type:: Clean-Voided Midstream Performed By: #### C MP, HS TROP, BNP, CK, PTT, CBC, PT #### [place] [address] [place] Ketones Ql (U) Negative Normal Negative [facility] Comment on above: Order Comment: Name Collection Type:: Clean-Voided Midstream Performed By: #### C MP, HS TROP, BNP, CK, PTT, CBC, PT #### [place] [address] [place] Leukocyte esterase Test strip Ql (U) 2+ High Negative [facility] Comment on above: Order Comment: Name Collection Type:: Clean-Voided Midstream Performed By: #### C MP, HS TROP, BNP, CK, PTT, CBC, PT #### [address] Mucus,Urine 1+ Critically abnormal [facility] Comment on above: Order Comment: Name Collection Type:: Clean-Voided Midstream Result Comment: PERF ORMED BY: [place] [address] PATHOLOGIST ASTROPHYSICS TEACHER PRO GOMEZ M.D. Performed By: #### C MP, HS TROP, BNP, CK, PTT, CBC, PT #### [place] [address] [place] Nitrite,Urine Negative Normal Negative [facility] Comment on above: Order Comment: Name Collection Type:: Clean-Voided Midstream Performed By: #### C MP, HS TROP, BNP, CK, PTT, CBC, PT #### [address] Occult Blood,Urine Negative Normal Negative [facility] Comment on above: Order Comment: Name Collection Type:: Clean-Voided Midstream Result Comment: PERF ORMED BY: [place] [address] PATHOLOGIST ASTROPHYSICS TEACHER PRO GOMEZ M.D. Performed By: #### C MP, HS TROP, BNP, CK, PTT, CBC, PT #### [place] [address] [place] Othe Crystals,Urine Rare Normal [facility] Comment on above: Order Comment: Name Collection Type:: Clean-Voided Midstream Performed By: #### C MP, HS TROP, BNP, CK, PTT, CBC, PT #### [address] pH (U) 5.5 [pH] Normal 5.0-9.0 [facility] Comment on above: Order Comment: Name Collection Type:: Clean-Voided Midstream Performed By: #### C MP, HS TROP, BNP, CK, PTT, CBC, PT #### [address] [address] [place] Protein (U) [Mass/Vol] 50 mg/dL High Negative [facility] Comment on above: Order Comment: Name Collection Type:: Clean-Voided Midstream Performed By: #### C MP, HS TROP, BNP, CK, PTT, CBC, PT #### [address] RBC,Urine 5 [HPF] High 0-4 [facility] Comment on above: Order Comment: Name Collection Type:: Clean-Voided Midstream Performed By: #### C MP, HS TROP, BNP, CK, PTT, CBC, PT #### [address] [place],Urine 1.024 Normal 1.001-1.03 0 [facility] Comment on above: Order Comment: Name Collection Type:: Clean-Voided Midstream Performed By: #### C MP, HS TROP, BNP, CK, PTT, CBC, PT #### [address] Squamous Epithelial Cell,Urine 5 [HPF] High 0-2 [facility] Comment on above: Order Comment: Name Collection Type:: Clean-Voided Midstream Performed By: #### C MP, HS TROP, BNP, CK, PTT, CBC, PT #### [address] Urobilinogen,Urine Normal Normal Normal [facility] Comment on above: Order Comment: Name Collection Type:: Clean-Voided Midstream Performed By: #### C MP, HS TROP, BNP, CK, PTT, CBC, PT #### [address] WBC,Urine 10 [HPF] High 0-4 [facility] Comment on above: Order Comment: Name Collection Type:: Clean-Voided Midstream Performed By: #### C MP, HS TROP, BNP, CK, PTT, CBC, PT #### [address] ECG 12 lead ECGon 08-28-2024 ECG 12 lead ECG [facility] [place] [address] Electrocardiograph Report Signed Patient: Cece Hubbard MR#: [id number] 1827 : 1945 Acct:[id number] Age/Sex: 79 / F ADM Date: 08/28/24 Loc: Room: [address] [place] [address] Type: ADM IN Attending Dr: Lion Shook [...] 29 bpm Confirmed by BERNARDO RUSSELL DO ([id number]) on 08/28/2024 8:50:11 PM Referred By: Electronically Signed By: BERNARDO RUSSELL DO Transcribed By: MUS Signed By Bernardo Russell DO 08/28 Normal [facility] Epithelial cells.squamous [# /area] in Urine sediment by Automated countOrdered By: Bernardo Russell on 08-28-2024 Epithelial cells.squamous Auto (Urine sed) [#/Area] Epithelial cells.squamous [#/area] in Urine sediment by Automated count High 0-2 [facility] Erythrocyte distribution wid th Auto (RBC) [Ratio]Ordered By: Bernardo Russell on 08-28-2024 Erythrocyte distribution width (RBC) [Ratio] Erythrocyte distribution width [Ratio] by Automated count High 11.9-15.3 [facility] Erythrocytes [#/area] in Uri ne sediment by Automated countOrdered By: Bernardo Russell on 08-28-2024 RBC Auto (Urine sed) [#/Area] Erythrocytes [#/area] in Urine sediment by Automated count High 0-4 [facility] Globulin Calc (S) [Mass/Vol] Ordered By: Bernardo Russell on 08-28-2024 Globulin (S) [Mass/Vol] Serum globulin measurement by calculation (mass/volume) [facility] Glucose [Mass/volume] in Ser um or PlasmaOrdered By: Bernardo Russell on 08-28-2024 Glucose [Mass/Vol] Glucose [Mass/volume ] in Serum or Plasma 70-100 [facility] Comment on above: ADA recommended refe [...] [Mass/volume] in Urine by Test strip Normal [facility] Hematocrit Auto (Bld) [Volum e fraction]Ordered By: Bernardo Russell on 08-28-2024 Hematocrit (Bld) [Volume fraction] Hematocrit [Volume Fraction] of Blood by Automated count 34.0-46.4 [facility] Hemoglobin Test strip Ql (U) Ordered By: Bernardo Russell on 08-28-2024 Hemoglobin Ql (U) Hemoglobin [Presence ] in Urine by Test strip Negative [facility] Hemoglobin [Mass/volume] in BloodOrdered By: Bernardo Russell on 08-28-2024 Hemoglobin (Bld) [Mass/Vol] Hemoglobin [Mass/volume] in Blood 11.8-15.4 [facility] Hemogram CBC Without Diffon 08-28-2024 Erythrocyte distribution width (RBC) [Ratio] 16.2 % High 11.9-15.3 [facility] Comment on above: Performed By: #### C MP, HS TROP, BNP, CK, PTT, CBC, PT #### [facility] [address] Hematocrit (Bld) [Volume fraction] 38.1 % Normal 34.0-46.4 [facility] Comment on above: Performed By: #### C MP, HS TROP, BNP, CK, PTT, CBC, PT #### [facility] [address] Hemoglobin (Bld) [Mass/Vol] 12.8 g/dL Normal 11.8-15.4 [facility] Comment on above: Performed By: #### C MP, HS TROP, BNP, CK, PTT, CBC, PT #### [address] MCH (RBC) [Entitic mass] 29.2 pg Normal 24.7-34.3 [facility] Comment on above: Performed By: #### C MP, HS TROP, BNP, CK, PTT, CBC, PT #### [address] MCV (RBC) [Entitic vol] 86.6 fL Normal 80-100 [facility] Comment on above: Performed By: #### C MP, HS TROP, BNP, CK, PTT, CBC, PT #### [address] Mean Corpuscular HGB Conc 33.7 g/dL Normal 32.0-35.0 [facility] Comment on above: Performed By: #### C MP, HS TROP, BNP, CK, PTT, CBC, PT #### [address] Platelet mean volume (Bld) [Entitic vol] 8.9 fL Normal 6.3-10.7 [facility] Comment on above: Result Comment: PERF ORMED BY: [place] [address] PATHOLOGIST ASTROPHYSICS TEACHER PRO GOMEZ M.D. Performed By: #### C MP, HS TROP, BNP, CK, PTT, CBC, PT #### [address] Platelets (Bld) [#/Vol] 263 10*3/uL Normal 150-450 [facility] Comment on above: Performed By: #### C MP, HS TROP, BNP, CK, PTT, CBC, PT #### [address] RBC (Bld) [#/Vol] 4.40 10*6/uL Normal 3.60-5.00 [facility] Comment on above: Performed By: #### C MP, HS TROP, BNP, CK, PTT, CBC, PT #### [facility] [address] WBC (Bld) [#/Vol] 9.2 10*3/uL Normal 3.8-11.6 [facility] Comment on above: Performed By: #### C MP, HS TROP, BNP, CK, PTT, CBC, PT #### [facility] [address] Hyaline casts [#/area] in Ur ine sediment by Automated countOrdered By: Bernardo Russell on 08-28-2024 Hyaline casts Auto (Urine sed) [#/Area] Hyaline casts [#/area] in Urine sediment by Automated count 0-8 [facility] Ketones Test strip Ql (U)Ord ered By: Bernardo Russell on 08-28-2024 Ketones Ql (U) Ketones [Presence] i n Urine by Test strip Negative [facility] Leukocyte esterase [Presence ] in Urine by Test stripOrdered By: Bernardo Russell on 08-28-2024 Leukocyte esterase Test strip Ql (U) Leukocyte esterase [Presence] in Urine by Test strip High Negative [facility] Leukocytes [#/area] in Urine sediment by Automated countOrdered By: Bernardo Russell on 08-28-2024 WBC Auto (Urine sed) [#/Area] Leukocytes [#/area] in Urine sediment by Automated count High 0-4 [facility] Leukocytes [#/volume] correc mayda for nucleated erythrocytes in Blood by Automated counOrdered By: Bernardo Russell on 08-28-2024 WBC corrected for nucl RBC Auto (Bld) [#/Vol] Leukocytes [#/volume] corrected for nucleated erythrocytes in Blood by Automated coun 3.8-11.6 [facility] Lipaseon 08-28-2024 Lipase [Catalytic activity/Vol] 17.0 U/L Normal 11.0-82.0 [facility] Comment on above: Result Comment: PERF ORMED BY: [place] [address] PATHOLOGIST ASTROPHYSICS TEACHER PRO GOMEZ M.D. Performed By: #### C MP, HS TROP, BNP, CK, PTT, CBC, PT #### [facility] [address] Lipase [Enzymatic activity/v olume] in Serum or PlasmaOrdered By: Bernardo Russell on 08-28-2024 Lipase [Catalytic activity/Vol] Lipase [Enzymatic activity/volume] in Serum or Plasma 11.0-82.0 [facility] MCH Auto (RBC) [Entitic mass ]Ordered By: Bernardo Russell on 08-28-2024 MCH (RBC) [Entitic mass] MCH [Entitic mass] by Automated count 24.7-34.3 [facility] MCHC Auto (RBC) [Mass/Vol]Or dered By: Bernardo Russell on 08-28-2024 MCHC (RBC) [Mass/Vol] MCHC [Mass/volume] by Automated count 32.0-35.0 [facility] MCV Auto (RBC) [Entitic vol] Ordered By: Bernardo Russell on 08-28-2024 MCV (RBC) [Entitic vol] MCV [Entitic volume] by Automated count 80-100 [facility] Mucus [Presence] in Urine by AutomatedOrdered By: Bernardo Russell on 08-28-2024 Mucus Auto Ql (U) Mucus [Presence] in Urine by Automated Abnormal [facility] Natriuretic peptide B [Mass/ Vol]Ordered By: Bernardo Russell on 08-28-2024 Natriuretic peptide B (Bld) [Mass/Vol] BNP ser/plas High 5-100 [facility] Nitrite Test strip Ql (U)Ord ered By: Bernardo Russell on 08-28-2024 Nitrite Ql (U) Nitrite [Presence] i n Urine by Test strip Negative [facility] No Panel InformationOrdered By: Bernardo Russell on 08-28-2024 Estimated GFR (CKD-EPI) 48.257 mL/Min [facility] Creatinine Clearance (Chem 40.65 [facility] Platelet mean volume Auto (B ld) [Entitic vol]Ordered By: Bernardo Russell on 08-28-2024 Platelet mean volume (Bld) [Entitic vol] Platelet mean volume [Entitic volume] in Blood by Automated count 6.3-10.7 [facility] Platelets Auto (Bld) [#/Vol] Ordered By: Bernardo Russell on 08-28-2024 Platelets (Bld) [#/Vol] Platelets [#/volume] in Blood by Automated count 150-450 [facility] Potassium [Moles/volume] in Serum or PlasmaOrdered By: Bernardo Russell on 08-28-2024 Potassium [Moles/Vol] Potassium [Moles/v olume] in Serum or Plasma 3.5-5.1 [facility] Protein Test strip (U) [Mass /Vol]Ordered By: Bernardo Russell on 08-28-2024 Protein (U) [Mass/Vol] Protein [Mass/vol ume] in Urine by Test strip High Negative [facility] Protein [Mass/volume] in Ser um or PlasmaOrdered By: Bernardo Russell on 08-28-2024 Protein [Mass/Vol] Protein [Mass/volume ] in Serum or Plasma 6.4-8.9 [facility] Prothrombin Time INRon 08-28 INR Coag (PPP) [Relative time] 4.3 {INR} Normal [facility] Group Comment on above: [...] heart valves: 3 - 4.5 PERFORMED BY: [place] [address] PATHOLOGIST ASTROPHYSICS TEACHER PRO GOMEZ M.D. Performed By: #### C MP, HS TROP, BNP, CK, PTT, CBC, PT #### [address] PT Coag (PPP) [Time] 47.8 s High 9.0-12.9 [facility] Comment on above: Result Comment: A he matocrit value greater than 55% may lead to inaccurate results in coagulation testing. Patients having hematocrit values >55% require a special collection tube for coagulation studies. Please contact the laboratory at [phone] for redraw instructions. Performed By: #### C MP, HS TROP, BNP, CK, PTT, CBC, PT #### [place] [id number] [facility] RBC Auto (Bld) [#/Vol]Ordere d By: Bernardo Russell on 08-28-2024 RBC (Bld) [#/Vol] Erythrocytes [#/volu me] in Blood by Automated count 3.60-5.00 [facility] Respiratory specimen influen za A virus, influenza B virus, respiratory syncytical virOrdered By: Bernardo Russell on 08-28-2024 SARS-CoV-2 (COVID-19) RNA ERICK+probe Ql (Unsp spec) Respiratory specimen influenza A virus, influenza B virus, respiratory syncytical vir [facility] Serum or plasma albumin/glob ulin mass ratioOrdered By: Bernardo Russell on 08-28-2024 Albumin/Globulin [Mass ratio] Serum or plasma albumin/globulin mass ratio [facility] Serum or plasma anion gap de terminationOrdered By: Bernardo Russell on 08-28-2024 Anion gap [Moles/Vol] Serum or plasma an ion gap determination 6.0-15.0 [facility] Sodium [Moles/volume] in Ser um or PlasmaOrdered By: Bernardo Russell on 08-28-2024 Sodium [Moles/Vol] Sodium [Moles/volume ] in Serum or Plasma 136-145 [facility] Specific gravity Test strip (U) [Rel density]Ordered By: Bernardo Russell on 08-28-2024 Specific gravity (U) [Rel density] Specific gravity of Urine by Test strip 1.001-1.03 0 [facility] Troponin I High Sensitivityo n 08-28-2024 Troponin I High Sensitivity 25 High 0-15 [facility] Comment on above: Order Comment: Comme nt repeat Result Comment: The Troponin units of report have been changed to meet the Chest Pain Accreditation requirement, element EC5.M1l2. Troponin units are changed from pg/ml to ng/L. Also, the decimal is removed and results are in whole numbers. PERFORMED BY: [place] [address] PATHOLOGIST ASTROPHYSICS TEACHER PRO GOMEZ M.D. Performed By: #### C MP, HS TROP, BNP, CK, PTT, CBC, PT #### [facility] [address] [place] [address] Troponin I High Sensitivity 30 High 0-15 [facility] Comment on above: Result Comment: The Troponin units of report have been changed to meet the Chest Pain Accreditation requirement, element EC5.M1l2. Troponin units are changed from pg/ml to ng/L. Also, the decimal is removed and results are in whole numbers. PERFORMED BY: [place] [address] PATHOLOGIST ASTROPHYSICS TEACHER PRO GOMEZ M.D. Performed By: #### C MP, HS TROP, BNP, CK, PTT, CBC, PT #### [facility] [address] [id number] [place] Troponin I.cardiac [Mass/vol ume] in Serum or Plasma by Detection limit <= 0.01 ng/Ordered By: Bernardo Russell on 08-28-2024 Troponin I.cardiac DL <= 0.01 ng/mL [Mass/Vol] Troponin I.cardiac [Mass/volume] in Serum or Plasma by Detection limit <= 0.01 ng/ High 0-15 [facility] Comment on above: The Troponin units [...] nitrogen [Mass/volume] in Serum or Plasma 7-25 [facility] Urine Cultureon 08-28-2024 Bacteria identified Cx Nom (U) >100,000 colonies/ml mixed bacterial skin contaminants 2 Days PERFORMED BY: [place] [address] PATHOLOGIST ASTROPHYSICS TEACHER PRO GOMEZ M.D. Normal [facility] Comment on above: Performed By: #### C MP, HS TROP, BNP, CK, PTT, CBC, PT #### [address] Urobilinogen Test strip (U) [Mass/Vol]Ordered By: Bernardo Russell on 08-28-2024 Urobilinogen (U) [Mass/Vol] Urobilinogen [Mass/volume] in Urine by Test strip Normal [facility] X-ray reportOrdered By: Ian Cantu on 08-28-2024 Study report [facility] [place] [address] XRay Report Signed Patient: Cece Hubbard MR#: [id number] : 1945 Acct:[id number] Age/Sex: 79 / F ADM Date: 5 Loc: ER Room: Type: [facility] ER Attending Dr: Copies to: Bernardo [...] Elvin Cantu M.D.08/28/2024 2:45 PM Dictation Location: [place] [address] Transcribed By: [facility] 08/28/24 1445 Dictated By: Elvin Cantu MD 08/28/24 144 Signed By: 08/28/24 1445 [facility] Work Phone: XR chest 1V portableon 08-28 XR chest 1V portable [facility] [place] [address] XRay Report Signed Patient: Cece Hubbard MR#: [id number] : 1945 Acct:[id number] Age/Sex: 79 / F ADM Date: 08/28/24 Loc: ER Room: Type: [facility] ER Attending Dr: Copies to: Bernardo [...] Elvin Cantu M.D.08/28/2024 2:45 PM Dictation Location: [place] [address] Transcribed By: [facility] 08/28/24 1445 Dictated By: Elvin Cantu MD 08/28/24 1442 Signed By: 08/28/24 1445 Normal [facility] pH Test strip (U)Ordered By: Bernardo Russell on 08-28-2024 pH (U) pH of Urine by Test strip 5.0-9.0 [facility] MM screening mammo BI w/CADo n 07-29-2024 MM screening mammo BI w/CAD [facility] [place] [address] Mammography Report Signed Patient: Cece Hubbard MR#: [id number] : 1945 Acct:[id number] Age/Sex: 79 / F ADM Date: 07/29/24 Loc: [place] Room: Type: [facility] CLI Attending Dr: Referral Self Copies to: Demarco [...] mammogram. Impression dictated by: Brett Arambula Jr., AleahOCharly07/29/2024 1:34 PM Dictation Location: [facility] Transcribed By: [facility] 07/29/24 1334 Dictated By: Brett Arambula Jr, DO 07/29/24 1333 Signed By: 07/29/24 1334 Normal [facility] Laboratory - Microbiology an d Antimicrobial susceptibilityon 04-26-2024 A. vaginae DNA ERICK+probe Ql (Vag fld) Low - 0 Score [facility] Bacterial vaginosis associated bacterium 2 DNA ERICK+probe Ql (Vag fld) Low - 0 Score [facility] C. albicans DNA ERICK+probe Ql (Vag fld) Negative Negative [facility] C. glabrata DNA ERICK+probe Ql (Vag fld) Negative Negative [facility] C. trachomatis DNA ERICK+probe Ql (Unsp spec) Negative Negative [facility] M. genitalium DNA ERICK+probe Ql (Unsp spec) Negative Negative [facility] M. hominis DNA ERICK+probe Ql (Unsp spec) Negative Negative [facility] Megasphaera sp type 1 DNA ERICK+probe Ql (Vag fld) Low - 0 Score [facility] Comment on above: Calculate total scor e [...] DNA ERICK+probe Ql (Vag fld) Negative Negative [facility] T. vaginalis DNA ERICK+probe Ql (Vag fld) Negative Negative [facility] Ureaplasma sp DNA ERICK+probe Ql (Unsp spec) Negative Negative [facility] No Panel Informationon 04-26 Test(s) 843295- Atop obium vaginae; 912818- BVAB 2; 059841- Megasphaera 1 was developed and its performance characteristics determined by [employer] [facility]. It has not been cleared or approved by the Food and Drug Administration. Test(s) 861955-Vcohpzj albicans, ERICK; 690921-Ggfxzes glabrata, ERICK was developed and its performance characteristics determined by [facility] [facility]. It has not been cleared or approved by the Food and Drug Administration. Performed at: - [address] [id number] [place] Tre[place]: Deidra Nelson MD, Phone: [phone] [facility] Test(s) 908183-Fxtba lasma hominis ERICK; 179988-Osemrhmdjq spp ERICK was developed and its performance characteristics determined by [employer]. It has not been cleared or approved by the Food and Drug Administration. Performed at: - [address] [id number] [place]: Deidra Nelson MD, Phone: [phone] [facility] Calcium [Mass/volume] in Ser um or PlasmaOrdered By: Rupert Bird on 01-20-2024 Calcium [Mass/Vol] 9.5 mg/dL 8.6-10.3 [facility] Carbon dioxide, total [Moles /volume] in Serum or PlasmaOrdered By: Rupert Bird on 01-20-2024 CO2 [Moles/Vol] 25.3 mmol/L 21.0-31.0 [facility] Chloride [Moles/volume] in S calli or PlasmaOrdered By: Rupert Bird on 01-20-2024 Chloride [Moles/Vol] 104 mmol/L 98-107 [facility] Creatinine [Mass/volume] in Serum or PlasmaOrdered By: Rupert Bird on 01-20-2024 Creatinine [Mass/Vol] 1.42 mg/dL 0.60-1.20 [facility] Glucose [Mass/volume] in Ser um or PlasmaOrdered By: Rupert Bird on 01-20-2024 Glucose [Mass/Vol] 92 mg/dL 70-100 [facility] Comment on above: ADA recommended refe rence rangeRandom Glucose Reference Range is dependent on time and content of last meal. Glucose of more than 200 mg/dL in a nonstressed, ambulatory subject supports the diagnosis of Diabetes Mellitus. No Panel InformationOrdered By: Rupert Bird on 01-20-2024 Estimated GFR (CKD-EPI) 38.094 mL/Min [facility] Creatinine Clearance (Chem 33.05 [facility] Potassium [Moles/volume] in Serum or PlasmaOrdered By: Rupert Bird on 01-20-2024 Potassium [Moles/Vol] 4.5 mmol/L 3.5-5.1 [facility] Serum or plasma anion gap de terminationOrdered By: Rupert Bird on 01-20-2024 Anion gap [Moles/Vol] 11.2 mmol/L 6.0-15.0 [facility] Sodium [Moles/volume] in Ser um or PlasmaOrdered By: Rupert Bird on 01-20-2024 Sodium [Moles/Vol] 136 mmol/L 136-145 [facility] Urea nitrogen [Mass/volume] in Serum or PlasmaOrdered By: Rupert Bird on 01-20-2024 Urea nitrogen [Mass/Vol] 20 mg/dL 7-25 [facility] ECG 12 [place] 01-12-2024 ECG revealed normal sinus rhythm and normal ECG [facility] Work Phone: ECG B/O W INTERP (MED OFFICE )on 12-23-2023 [facility] [place] 12-09-2023 SARAH Telephone ([facility] -- CECE HUBBARD ([id number]) 1945 F Date Time Provider Department 12/09/23 TANG FOWLER During your visit today, we recorded the [...] Reason for Visit: Follow Up Phone Call [0342] Cmt: ELZA f/u all clear Prescriptions as of 12/09/2023 [...] or >5 lb in 1 week, call antisqueak worker if taking this). - potassium chloride ER (KLOR-CON) 20 mEq tablet Take 1 tablet by mouth once daily as needed (take only if taking a dose of lasix for weight gain/swelling). 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 Left message on [employer] including 03/03 resource nurse phone number. Lui [...] Reason for Visit: Follow Up Phone Call [4233] Cmt: follow up call first attempt. Prescriptions [...] or >5 lb in 1 week, call antisqueak worker if taking this). - potassium chloride ER [...] Encounter Status:Closed by LUI SANCHEZ on 12/04/23 [facility] CNPN Telephone (JIMMY) -- CECE HUBBARD ([id number]) 1945 F Date Time Provider Department 12/04/23 [...] -Yes All clear and closing statement given. RN verified patients name and date of [...] Reason for Visit: Follow Up Phone Call [7938] Cmt: follow up call all clear. Prescriptions [...] or >5 lb in 1 week, call antisqueak worker if taking this). - potassium chloride ER [...] Status:Closed by LUI SANCHEZ on 12/04/23 Normal [facility] CBC panel Auto (Bld)on 12-02 Erythrocyte distribution width (RBC) [Ratio] 14.6 % Normal 11.5-15.0 [facility] Comment on above: Order Comment: Tremayne bill Type: BLOOD SPECIMEN Ordering Facility: [facility] Address: [address] [place] [address] Performed By: #### 3 4528-0, PTTAC #### [facility] CLIA [id number] [address] [place] [address] [place] Hematocrit (Bld) [Volume fraction] 40.6 % Normal 36.0-46.0 [facility] Comment on above: Order Comment: Tremayne bill Type: BLOOD SPECIMEN Ordering Facility: [facility] Address: [address] [place] [address] Performed By: #### 3 4528-0, PTTAC #### [facility] CLIA [id number] [address] [place] [address] [place] Hemoglobin (Bld) [Mass/Vol] 13.4 g/dL Normal 11.5-15.5 [facility] Comment on above: Order Comment: Tremayne bill Type: BLOOD SPECIMEN Ordering Facility: [facility] Address: [address] [place] [address] Performed By: #### 3 4528-0, PTTAC #### [facility] CLIA [id number] [address] [place] [address] [place] MCH (RBC) [Entitic mass] 31.2 pg Normal 26.0-34.0 [facility] Comment on above: Order Comment: Speci men Type: BLOOD SPECIMEN Ordering Facility: [facility] Address: [address] [place] [address] Performed By: #### 3 4528-0, PTTAC #### [facility] CLIA [id number] [address] [place] [address] [place] MCHC (RBC) [Mass/Vol] 33.0 g/dL Normal 30.5-36.0 [facility] Comment on above: Order Comment: Speci men Type: BLOOD SPECIMEN Ordering Facility: [facility] Address: [address] [place] [address] Performed By: #### 3 4528-0, PTTAC #### [facility] CLIA [id number] [address] [place] [address] [place] MCV (RBC) [Entitic vol] 94.6 fL Normal 80.0-100.0 [facility] Comment on above: Order Comment: Speci men Type: BLOOD SPECIMEN Ordering Facility: [facility] Address: [address] [place] [address] Performed By: #### 3 4528-0, PTTAC #### [facility] CLIA [id number] [address] [place] [address] [place] Nucleated RBC (Bld) [#/Vol] 10*3/uL Normal <0.01 [facility] Comment on above: Order Comment: Speci men Type: BLOOD SPECIMEN Ordering Facility: [facility] Address: [address] [place] [address] Performed By: #### 3 4528-0, PTTAC #### [facility] CLIA [id number] [address] [place] [address] [place] Platelet mean volume (Bld) [Entitic vol] 11.2 fL Normal 9.0-12.7 [facility] Comment on above: Order Comment: Speci men Type: BLOOD SPECIMEN Ordering Facility: [facility] Address: [address] [place] [address] Performed By: #### 3 4528-0, PTTAC #### [facility] CLIA [id number] [address] [place] [address] [place] Platelets (Bld) [#/Vol] 166 10*3/uL Normal 150-400 [facility] Comment on above: Order Comment: Speci men Type: BLOOD SPECIMEN Ordering Facility: [facility] Address: [address] [place] [address] Performed By: #### 3 4528-0, PTTAC #### [facility] CLIA [id number] [address] [place] [address] [place] RBC (Bld) [#/Vol] 4.29 10*6/uL Normal 3.90-5.20 [facility] Comment on above: Order Comment: Speci men Type: BLOOD SPECIMEN Ordering Facility: [facility] Address: [address] [place] [address] Performed By: #### 3 4528-0, PTTAC #### [facility] CLIA [id number] [address] [place] [address] [place] WBC (Bld) [#/Vol] 6.44 10*3/uL Normal 3.70-11.00 [facility] Comment on above: Order Comment: Speci men Type: BLOOD SPECIMEN Ordering Facility: [facility] Address: [address] [place] [address] Performed By: #### 3 4528-0, PTTAC #### [facility] CLIA [id number] [address] [place] [address] [place] CNDSon 12-03-2023 [facility] HNO ID: [id number] Author: LIANE BUCKLEY MD Service: Cardiovascular Medicine [...] Problem List: NSTEMI (non-ST elevated myocardial infarction) ([facility]) (11/25/2023) Nonrheumatic aortic valve insufficiency (11/26/2023) Pre-op exam (11/26/2023) Anticoagulation management encounter (11/26/2023) Dyspnea on exertion (11/26/2023) Atrial fibrillation, chronic ([facility]) (11/26/2023) Reason for Hospitalization: Cece Hubbard is [...] Dr. Shaw on 12/05/23, however presented to [facility] ED 11/24/23 with worsening dyspnea and feeling that she could not wait until surgical date. She was transferred to [facility] for expedited surgical evaluation. Hospital Course: She [...] or >5 lb in 1 week, call antisqueak worker if taking this). What changed: medication strength [...] mg t (more content not included)... Normal [facility] Comprehensive metabolic 2000 panelon 12-03-2023 Albumin [Mass/Vol] 4.3 g/dL Normal 3.9-4.9 [facility] Comment on above: Order Comment: Speci men Type: BLOOD SPECIMENOrdering Facility: [facility] Address: [address] [place] [address] Performed By: #### 2 432-8, ####[facility] [id number] [place] [address] [place] ALP [Catalytic activity/Vol] 99 U/L Normal 34-123 [facility] Comment on above: Order Comment: Speci men Type: BLOOD SPECIMENOrdering Facility: [facility] Address: [address] [place] [address] Performed By: #### 2 432-, ####[facility] [id number] [place] [address] [place] ALT [Catalytic activity/Vol] 22 U/L Normal 7-38 [facility] Comment on above: Order Comment: Speci men Type: BLOOD SPECIMENOrdering Facility: [facility] Address: [address] [place] [address] Performed By: #### 2 4323-8, ####[facility] [id number] [place] [address] [place] Anion gap [Moles/Vol] 12 mmol/L Normal 9-18 [facility] Comment on above: Order Comment: Speci men Type: BLOOD SPECIMENOrdering Facility: [facility] Address: [address] [id number] Performed By: #### 2 4323-8, ####[facility] [id number] [place] [id number] [place] AST [Catalytic activity/Vol] 20 U/L Normal 13-35 [facility] Comment on above: Order Comment: Speci men Type: BLOOD SPECIMENOrdering Facility: [facility] Address: [address] [place] [address] Performed By: #### 2 4323-8, ####[facility] [id number] [place] [address] [place] Bilirubin [Mass/Vol] 0.8 mg/dL Normal 0.2-1.3 [facility] Comment on above: Order Comment: Speci men Type: BLOOD SPECIMENOrdering Facility: [facility] Address: [address] [place] [address] Performed By: #### 2 4323-8, ####[facility] [id number] [place] [address] [place] Calcium [Mass/Vol] 10.3 mg/dL High 8.5-10.2 [facility] Comment on above: Order Comment: Speci men Type: BLOOD SPECIMENOrdering Facility: [facility] Address: [address] [id number] Performed By: #### 2 4323-8, ####[facility] [id number] [place] [id number] [place] Chloride [Moles/Vol] 99 mmol/L Normal 97-105 [facility] Comment on above: Order Comment: Speci men Type: BLOOD SPECIMENOrdering Facility: [facility] Address: [address] [place] [address] Performed By: #### 2 4323-8, ####[facility] [id number] [place] [id number] [place] CO2 [Moles/Vol] 24 mmol/L Normal 22-30 [facility] Comment on above: Order Comment: Speci men Type: BLOOD SPECIMENOrdering Facility: [facility] Address: [address] [place] [address] Performed By: #### 2 4323-8, ####[facility] [id number] [place] [address] [place] Creatinine [Mass/Vol] 1.83 mg/dL High 0.58-0.96 [facility] Comment on above: Order Comment: Speci men Type: BLOOD SPECIMENOrdering Facility: [facility] Address: [address] [place] [address] Performed By: #### 2 4328, ####[facility] [id number] [place] [address] [place] Creatinine and Glomerular filtration rate.predicted panel (S/P/Bld) 28 mL/min/1.73m??? Low >=60 [facility] Comment on above: Order Comment: Speci men Type: BLOOD SPECIMENOrdering Facility: [facility] Address: [address] [place] [address] Result Comment: Amy mated Glomerular Filtration Rate [...] actual GFR. Performed By: #### 2 4323-8, ####[facility] [id number] [place] [id number] [place] Glucose [Mass/Vol] 105 mg/dL High 74-99 [facility] Comment on above: Order Comment: Speci men Type: BLOOD SPECIMENOrdering Facility: [facility] Address: [address] [place] [address] Result Comment: The [place] [employer] Association (ADA) provides guidance for cutoff [...] Standards of Medical Care in Diabetes 2016, [place] [employer]. Diabetes Care. 2016.39(Suppl 1). Performed By: #### 2 4323-8, ####[facility] [id number] [place] [address] [place] Potassium [Moles/Vol] 4.3 mmol/L Normal 3.7-5.1 [facility] Comment on above: Order Comment: Tremayne bill Type: BLOOD SPECIMENOrdering Facility: [facility] Address: [address] [place] [address] Performed By: #### 2 4323-8, ####[facility] [id number] [place] [address] [place] Protein [Mass/Vol] 7.1 g/dL Normal 6.3-8.0 [facility] Comment on above: Order Comment: Tremayne bill Type: BLOOD SPECIMENOrdering Facility: [facility] Address: [address] [place], [place] [address] Performed By: #### 2 4323-8, ####[facility] [id number] [place] [address] [place] Sodium [Moles/Vol] 135 mmol/L Low 136-144 [facility] Comment on above: Order Comment: Speci men Type: BLOOD SPECIMENOrdering Facility: [facility] Address: [address] [place], [place] [address] Performed By: #### 2 4323-8, 16913-1 ####[facility] [id number] [place] [id number] [place] Urea nitrogen [Mass/Vol] 32 mg/dL High 7-21 [facility] Comment on above: Order Comment: Speci men Type: BLOOD SPECIMENOrdering Facility: [facility] Address: [address] [place] [address] Performed By: #### 2 4323-8, ####[facility] [id number] [place] [id number] [place] Magnesium SerPl-mCncon 12-02 Magnesium [Mass/Vol] 2.3 mg/dL Normal 1.7-2.3 [facility] Comment on above: Order Comment: Speci men Type: BLOOD SPECIMENOrdering Facility: [facility] Address: [address] [place] [address] Performed By: #### 2 4323-8, ####[facility] [id number] [place] [id number] [place] NUTRITIONon 12-03-2023 NUTRITION HNO ID: [id number] Author: THUY RIVERA RD Service: Nutrition Therapy Author Type: Registered Dietitian Type: Nutrition Filed: 12/03/2023 15:32 Note Text: NUTRITION THERAPY PROGRESS NOTE SERVICE DATE: 12/03/2023 SERVICE TIME: 1255 Nutrition Assessment: Recommended Malnutrition Diagnosis: No Malnutrition Identified (11/26/23 1305 : Rebeka Garcia RD) Estimated kilocalorie needs: 9602-3227 Calorie Calculation Method: 25-30 kcals/kg, Mcintosh Body Weight Estimated protein needs (grams): 65-82 Grams protein determined by: 1.2 - 1.5 g/kg, Mcintosh body weight Care Plan: Continue current diet Heart Healthy Supplements: Ensure Max Refer to: Edge Dyer to Follow Medications: (anti-emetics and bowel regimen [...] Rivera RD DATE: 12/03/2023 3:31 PM Normal [facility] PTT, ANTICOAGULANT THERAPYon 12-03-2023 aPTT Coag (PPP) [Time] 30.7 s Normal 23.0-32.4 Cl [facility] Comment on above: Order Comment: Speci men Type: BLOOD SPECIMEN [facility]ing Facility: [facility] Address: [address] [place] [address] Performed By: #### 3 4528-0, PTTAC #### [facility] CLIA [id number] [address] [place] [address] [place] CARD CATH INTERVENTon 2023 CARD CATH INTERVENT Site Id: [facility] Lab #: [facility] HVI Internal Control Analyst 5 Study Date: 12/02/2023 Start Time: 12/02/2023 5:01:34 PM End Time: 12/02/2023 6:09:26 PM Physician Name Song Tyler M.D., Nicholas M.D. Nursing/Clover Fortune R.N., K. R.N. Yeager, M RCharlyNCharly + + PATIENT INFORMATION + + Name: [...] Turndown for CABG or Heart Surgery: No CS Clinical Frailty Scale: 6: Moderately Frail Acute [...] Obtained R (more content not included)... Normal [facility] CBC panel Auto (Bld)on 12-01 Erythrocyte distribution width (RBC) [Ratio] 14.6 % Normal 11.5-15.0 [facility] Comment on above: Order Comment: Tremayne bill Type: BLOOD SPECIMENOrdering Facility: [facility] Address: [address] [place] [address] Performed By: #### 5 8410-2 ####[facility] [id number] [place] [address] [place] Hematocrit (Bld) [Volume fraction] 43.3 % Normal 36.0-46.0 [facility] Comment on above: Order Comment: Tremayne bill Type: BLOOD SPECIMENOrdering Facility: [facility] Address: [address] [place] [address] Performed By: #### 5 8410-2 ####[facility] [id number] [place] [address] [place] Hemoglobin (Bld) [Mass/Vol] 14.6 g/dL Normal 11.5-15.5 [facility] Comment on above: Order Comment: Tremayne bill Type: BLOOD SPECIMENOrdering Facility: [facility] Address: [address] [place] [address] Performed By: #### 5 8410-2 ####[facility] [id number] [place] [address] [place] MCH (RBC) [Entitic mass] 31.9 pg Normal 26.0-34.0 [facility] Comment on above: Order Comment: Speci men Type: BLOOD SPECIMENOrdering Facility: [facility] Address: [address] [place] [address] Performed By: #### 5 8410-2 ####[facility] [id number] [place] [address] [place] MCHC (RBC) [Mass/Vol] 33.7 g/dL Normal 30.5-36.0 [facility] Comment on above: Order Comment: Speci men Type: BLOOD SPECIMENOrdering Facility: [facility] Address: [address] [place] [address] Performed By: #### 5 8410-2 ####[facility] [id number] [place] [address] [place] MCV (RBC) [Entitic vol] 94.5 fL Normal 80.0-100.0 [facility] Comment on above: Order Comment: Speci men Type: BLOOD SPECIMENOrdering Facility: [facility] Address: [address] [place] [address] Performed By: #### 5 8410-2 ####[facility] [id number] [place] [address] [place] Nucleated RBC (Bld) [#/Vol] 10*3/uL Normal <0.01 [facility] Comment on above: Order Comment: Speci men Type: BLOOD SPECIMENOrdering Facility: [facility] Address: [address] [place] [address] Performed By: #### 5 8410-2 ####[facility] [id number] [place] [address] [place] Platelet mean volume (Bld) [Entitic vol] 11.1 fL Normal 9.0-12.7 [facility] Comment on above: Order Comment: Speci men Type: BLOOD SPECIMENOrdering Facility: [facility] Address: [address] [place] [address] Performed By: #### 5 8410-2 ####[facility] [id number] [place] [address] [place] Platelets (Bld) [#/Vol] 181 10*3/uL Normal 150-400 [facility] Comment on above: Order Comment: Speci men Type: BLOOD SPECIMENOrdering Facility: [facility] Address: [address] [place] [address] Performed By: #### 5 8410-2 ####[facility] [id number] [place] [address] [place] RBC (Bld) [#/Vol] 4.58 10*6/uL Normal 3.90-5.20 [facility] Comment on above: Order Comment: Speci men Type: BLOOD SPECIMENOrdering Facility: [facility] Address: [address] [place] [address] Performed By: #### 5 8410-2 ####[facility] [id number] [place] [address] [place] WBC (Bld) [#/Vol] 5.45 10*3/uL Normal 3.70-11.00 [facility] Comment on above: Order Comment: Speci men Type: BLOOD SPECIMENOrdering Facility: [facility] Address: [address] [place] [address] Performed By: #### 5 8410-2 ####[facility] [id number] [place] [address] [place] Comprehensive metabolic 2000 panelon 12-02-2023 Albumin [Mass/Vol] 4.4 g/dL Normal 3.9-4.9 [facility] Comment on above: Order Comment: Speci men Type: BLOOD SPECIMENOrdering Facility: [facility] Address: [address] [place] [id number] Performed By: #### 2 4323-8, ####[facility] [id number] [place] [address] [place] ALP [Catalytic activity/Vol] 107 U/L Normal 34-123 [facility] Comment on above: Order Comment: Speci men Type: BLOOD SPECIMENOrdering Facility: [facility] Address: [address] [place] [address] Performed By: #### 2 4323-8, ####[facility] [id number] [place] [address] [place] ALT [Catalytic activity/Vol] 30 U/L Normal 7-38 [facility] Comment on above: Order Comment: Speci men Type: BLOOD SPECIMENOrdering Facility: [facility] Address: [address] [place] [address] Performed By: #### 2 4323-8, ####[facility] [id number] [place] [address] [place] Anion gap [Moles/Vol] 15 mmol/L Normal 9-18 [facility] Comment on above: Order Comment: Speci men Type: BLOOD SPECIMENOrdering Facility: [facility] Address: [address] [place] [address] Performed By: #### 2 4323-8, ####[facility] [id number] [place] [address] [place] AST [Catalytic activity/Vol] 23 U/L Normal 13-35 [facility] Comment on above: Order Comment: Speci men Type: BLOOD SPECIMENOrdering Facility: [facility] Address: [address] [place] [address] Performed By: #### 2 4323-8, ####[facility] [id number] [address] [address] [place] Bilirubin [Mass/Vol] 0.8 mg/dL Normal 0.2-1.3 [facility] Comment on above: Order Comment: Speci men Type: BLOOD SPECIMENOrdering Facility: [facility] Address: [address] [place], [place] [address] Performed By: #### 2 432-8, ####[facility] [id number] [place] [address] [place] Calcium [Mass/Vol] 10.6 mg/dL High 8.5-10.2 [facility] Comment on above: Order Comment: Speci men Type: BLOOD SPECIMENOrdering Facility: [facility] Address: [address] [place], [place] [address] Performed By: #### 2 4328, ####[facility] [id number] [place] [id number] [place] Chloride [Moles/Vol] 98 mmol/L Normal 97-105 [facility] Comment on above: Order Comment: Speci men Type: BLOOD SPECIMENOrdering Facility: [facility] Address: [address] [place] [address] Performed By: #### 2 4328, ####[facility] [id number] [address] [address] [place] CO2 [Moles/Vol] 23 mmol/L Normal 22-30 [facility] Comment on above: Order Comment: Speci men Type: BLOOD SPECIMENOrdering Facility: [facility] Address: [address] [place], [place] [address] Performed By: #### 2 4323-8, ####[facility] [id number] [place] [address] [place] Creatinine [Mass/Vol] 2.05 mg/dL High 0.58-0.96 [facility] Comment on above: Order Comment: Tremayne bill Type: BLOOD SPECIMENOrdering Facility: [facility] Address: [address] [place] [address] Performed By: #### 2 4323-8, ####[facility] [id number] [place] [address] [place] Creatinine and Glomerular filtration rate.predicted panel (S/P/Bld) 25 mL/min/1.73m??? Low >=60 [facility] Comment on above: Order Comment: Tremayne bill Type: BLOOD SPECIMENOrdering Facility: [facility] Address: [address] [place] [address] Result Comment: Amy mated Glomerular Filtration Rate [...] actual GFR. Performed By: #### 2 4323-8, ####[facility] [id number] [place] [address] [place] Glucose [Mass/Vol] 117 mg/dL High 74-99 [facility] Comment on above: Order Comment: Tremayne men Type: BLOOD SPECIMENOrdering Facility: [facility] Address: [address] [place] [address] Result Comment: The [place] [employer] (ADA) provides guidance for cutoff [...] Standards of Medical Care in Diabetes 2016, [place] [employer]. Diabetes Care. 2016.39(Suppl 1). Performed By: #### 2 432-8, ####[facility] [id number] [place] [address] [place] Potassium [Moles/Vol] 4.3 mmol/L Normal 3.7-5.1 [facility] Comment on above: Order Comment: Speci men Type: BLOOD SPECIMENOrdering Facility: [facility] Address: [address] [place] [address] Performed By: #### 2 43210-16, ####[facility] [id number] [place] [address] [place] Protein [Mass/Vol] 7.5 g/dL Normal 6.3-8.0 [facility] Comment on above: Order Comment: Speci men Type: BLOOD SPECIMENOrdering Facility: [facility] Address: [address] [place] [address] Performed By: #### 2 4323-03, ####[facility] [id number] [place] [address] [place] Sodium [Moles/Vol] 136 mmol/L Normal 136-144 [facility] Comment on above: Order Comment: Speci men Type: BLOOD SPECIMENOrdering Facility: [facility] Address: [address] [place] [address] Performed By: #### 2 4323-03, ####[facility] [id number] [address] [address] [place] Urea nitrogen [Mass/Vol] 32 mg/dL High 7-21 [facility] Comment on above: Order Comment: Speci men Type: BLOOD SPECIMENOrdering Facility: [facility] Address: [address] [place], [place] [address] Performed By: #### 2 4323-8, 20541-3 ####[facility] [id number] [place] [address] [place] Magnesium SerPl-mCncon 12-01 Magnesium [Mass/Vol] 2.3 mg/dL Normal 1.7-2.3 [facility] Comment on above: Order Comment: Speci men Type: BLOOD SPECIMENOrdering Facility: [facility] Address: [address] [place] [address] Performed By: #### 2 4323-8, 43220-7 ####[facility] [id number] [place] [address] [place] PT EDon 12-02-2023 PT ED HNO ID: [id number] Author: ZEINA CHAVEZ RN Service: Nursing Author [...] Up Plan: Follow up as directed by . Supplemental Material Given: None Instructed By Zeina Chavez RN. In Department of [id number]. Normal [facility] PT panel Coag (PPP)on 2023 INR Coag (PPP) [Relative time] 1.0 {INR} Normal 0.9-1.3 [facility] Comment on above: Order Comment: Tremayne bill Type: BLOOD SPECIMENOrdering Facility: [facility] Address: [address] [place] [address] Result Comment: Janeth min K Antagonist (VKA) Therapeutic Range: INR 2 to 3 (Target INR of 2.5) Note: For patients treated with VKA drugs, such as warfarin, the [place] [employer] 2012 Guideline recommends [...] Chest 2012, 141:7S-47S Mary RA, et al. [facility] 2017, 70: 252-289 Performed By: #### 3 4528-0 ####[facility] [id number] [place] [address] [place] PT Coag (PPP) [Time] 10.8 s Normal 9.7-13.0 [facility] Comment on above: Order Comment: Tremayne bill Type: BLOOD SPECIMENOrdering Facility: [facility] Address: [address] [place] [address] Performed By: #### 3 4528-0 ####[facility] [id number] [place] [address] [place] PTT, ANTICOAGULANT THERAPYon 12-02-2023 aPTT Coag (PPP) [Time] 28.8 s Normal 23.0-32.4 [facility] Comment on above: Order Comment: rTemayne bill Type: BLOOD SPECIMENOrdering Facility: [facility] Address: [address] [place] [address] Performed By: #### P TTAC ####[facility] [id number] [place] [address] [place] aPTT Coag (PPP) [Time] 69.2 s High 23.0-32.4 [facility] Comment on above: Order Comment: Speci men Type: BLOOD SPECIMEN [facility] Address: [address] [place] [address] Performed By: #### 3 4528-0, PTTAC #### [facility] CLIA [id number] [address] [place] [address] [place] CBC panel Auto (Bld)on 11-30 Erythrocyte distribution width (RBC) [Ratio] 14.6 % Normal 11.5-15.0 [facility] Comment on above: Order Comment: Speci men Type: BLOOD SPECIMENOrdering Facility: [facility] Address: [address] [place] [address] Performed By: #### 5 8410-2 ####[facility] [id number] [place] [address] [place] Hematocrit (Bld) [Volume fraction] 42.2 % Normal 36.0-46.0 [facility] Comment on above: Order Comment: Speci men Type: BLOOD SPECIMENOrdering Facility: [facility] Address: [address] [place] [address] Performed By: #### 5 8410-2 ####[facility] [id number] [place] [id number] [place] Hemoglobin (Bld) [Mass/Vol] 14.2 g/dL Normal 11.5-15.5 [facility] Comment on above: Order Comment: Speci men Type: BLOOD SPECIMENOrdering Facility: [facility] Address: [address] [place] [address] Performed By: #### 5 8410-2 ####[facility] [id number] [place] [address] [place] MCH (RBC) [Entitic mass] 31.9 pg Normal 26.0-34.0 [facility] Comment on above: Order Comment: Speci men Type: BLOOD SPECIMENOrdering Facility: [facility] Address: [address] [place] [address] Performed By: #### 5 8410-2 ####[facility] [id number] [place] [address] [place] MCHC (RBC) [Mass/Vol] 33.6 g/dL Normal 30.5-36.0 [facility] Comment on above: Order Comment: Speci men Type: BLOOD SPECIMENOrdering Facility: [facility] Address: [address] [place] [address] Performed By: #### 5 8410-2 ####[facility] [id number] [place] [address] [place] MCV (RBC) [Entitic vol] 94.8 fL Normal 80.0-100.0 [facility] Comment on above: Order Comment: Speci men Type: BLOOD SPECIMENOrdering Facility: [facility] Address: [address] [place] [address] Performed By: #### 5 8410-2 ####[facility] [id number] [place] [address] [place] Nucleated RBC (Bld) [#/Vol] 10*3/uL Normal <0.01 [facility] Comment on above: Order Comment: Speci men Type: BLOOD SPECIMENOrdering Facility: [facility] Address: [address] [place] [address] Performed By: #### 5 8410-2 ####[facility] [id number] [place] [address] [place] Platelet mean volume (Bld) [Entitic vol] 10.9 fL Normal 9.0-12.7 [facility] Comment on above: Order Comment: Speci men Type: BLOOD SPECIMENOrdering Facility: [facility] Address: [address] [place] [address] Performed By: #### 5 8410-2 ####[facility] [id number] [place] [address] [place] Platelets (Bld) [#/Vol] 184 10*3/uL Normal 150-400 [facility] Comment on above: Order Comment: Speci men Type: BLOOD SPECIMENOrdering Facility: [facility] Address: [address] [place] [address] Performed By: #### 5 8410-2 ####[facility] [id number] [place] [address] [place] RBC (Bld) [#/Vol] 4.45 10*6/uL Normal 3.90-5.20 [facility] Comment on above: Order Comment: Speci men Type: BLOOD SPECIMENOrdering Facility: [facility] Address: [address] [place] [address] Performed By: #### 5 8410-2 ####[facility] [id number] [place] [address] [place] WBC (Bld) [#/Vol] 4.96 10*3/uL Normal 3.70-11.00 [facility] Comment on above: Order Comment: Speci men Type: BLOOD SPECIMENOrdering Facility: [facility] Address: [address] [place] [address] Performed By: #### 5 8410-2 ####[facility] [id number] [place] [address] [place] Comprehensive metabolic 2000 panelon 12-01-2023 Albumin [Mass/Vol] 4.7 g/dL Normal 3.9-4.9 [facility] Comment on above: Order Comment: Speci men Type: BLOOD SPECIMENOrdering Facility: [facility] Address: [address] [place] [address] [place] [address] Performed By: #### 2 4322-8, ####[facility] [id number] [address] [address] [place] ALP [Catalytic activity/Vol] 103 U/L Normal 34-123 [facility] Comment on above: Order Comment: Speci men Type: BLOOD SPECIMENOrdering Facility: [facility] Address: [address] [place], [place] [address] Performed By: #### 2 4322-8, ####[facility] [id number] [place] [id number] [place] ALT [Catalytic activity/Vol] 32 U/L Normal 7-38 [facility] Comment on above: Order Comment: Speci men Type: BLOOD SPECIMENOrdering Facility: [facility] Address: [address] [place], [place] [address] Performed By: #### 2 4323-03, ####[facility] [id number] [address] [address] [place] Anion gap [Moles/Vol] 15 mmol/L Normal 9-18 [facility] Comment on above: Order Comment: Speci men Type: BLOOD SPECIMENOrdering Facility: [facility] Address: [address] [place] [address] Performed By: #### 2 8, ####[facility] [id number] [address] [address] [place] AST [Catalytic activity/Vol] 32 U/L Normal 13-35 [facility] Comment on above: Order Comment: Speci men Type: BLOOD SPECIMENOrdering Facility: [facility] Address: [address] [place] [address] Performed By: #### 2 432-8, ####[facility] [id number] [place] [address] [place] Bilirubin [Mass/Vol] 1.0 mg/dL Normal 0.2-1.3 [facility] Comment on above: Order Comment: Speci men Type: BLOOD SPECIMENOrdering Facility: [facility] Address: [address] [place] [address] Performed By: #### 2 4323-8, ####[facility] [id number] [place] [address] [place] Calcium [Mass/Vol] 10.6 mg/dL High 8.5-10.2 [facility] Comment on above: Order Comment: Speci men Type: BLOOD SPECIMENOrdering Facility: [facility] Address: [address] [place] [address] Performed By: #### 2 4323-8, ####[facility] [id number] [place] [address] [place] Chloride [Moles/Vol] 98 mmol/L Normal 97-105 [facility] Comment on above: Order Comment: Speci men Type: BLOOD SPECIMENOrdering Facility: [facility] Address: [address] [place] [address] Performed By: #### 2 4323-8, ####[facility] [id number] [place] [address] [place] CO2 [Moles/Vol] 25 mmol/L Normal 22-30 [facility] Comment on above: Order Comment: Speci men Type: BLOOD SPECIMENOrdering Facility: [facility] Address: [address] [place] [address] Performed By: #### 2 4323-8, ####[facility] [id number] [place] [id number] [place] Creatinine [Mass/Vol] 1.98 mg/dL High 0.58-0.96 [facility] Comment on above: Order Comment: Tremayne bill Type: BLOOD SPECIMENOrdering Facility: [facility] Address: [address] [place] [address] Performed By: #### 2 4323-8, ####[facility] [id number] [place] [address] [place] Creatinine and Glomerular filtration rate.predicted panel (S/P/Bld) 26 mL/min/1.73m??? Low >=60 [facility] Comment on above: Order Comment: Tremayne bill Type: BLOOD SPECIMENOrdering Facility: [facility] Address: [address] [place] [address] Result Comment: Amy mated Glomerular Filtration Rate [...] actual GFR. Performed By: #### 2 4323-8, 15601-9 ####[facility] [id number] [place] [address] [place] Glucose [Mass/Vol] 110 mg/dL High 74-99 [facility] Comment on above: Order Comment: Tremayne bill Type: BLOOD SPECIMENOrdering Facility: [facility] Address: [address] [place] [address] Result Comment: The [place] [employer] (ADA) provides guidance for cutoff [...] Standards of Medical Care in Diabetes 2016, [place] [employer]. Diabetes Care. 2016.39(Suppl 1). Performed By: #### 2 4323-8, ####[facility] [id number] [address] [address] [place] Potassium [Moles/Vol] 4.5 mmol/L Normal 3.7-5.1 [facility] Comment on above: Order Comment: Speci men Type: BLOOD SPECIMENOrdering Facility: [facility] Address: [address] [place] [address] Performed By: #### 2 4328, ####[facility] [id number] [place] [address] [place] Protein [Mass/Vol] 7.7 g/dL Normal 6.3-8.0 [facility] Comment on above: Order Comment: Speci men Type: BLOOD SPECIMENOrdering Facility: [facility] Address: [address] [place], [place] [address] Performed By: #### 2 4323-03, ####[facility] [id number] [place] [address] [place] Sodium [Moles/Vol] 138 mmol/L Normal 136-144 [facility] Comment on above: Order Comment: Speci men Type: BLOOD SPECIMENOrdering Facility: [facility] Address: [address] [place] [id number] Performed By: #### 2 432-8, ####[facility] [id number] [place] [id number] [place] Urea nitrogen [Mass/Vol] 33 mg/dL High 7-21 [facility] Comment on above: Order Comment: Speci men Type: BLOOD SPECIMENOrdering Facility: [facility] Address: [address] [place] [address] Performed By: #### 2 8, ####[facility] [id number] [place] [address] [place] Magnesium SerPl-mCncon 11-30 Magnesium [Mass/Vol] 2.3 mg/dL Normal 1.7-2.3 [facility] Comment on above: Order Comment: Speci men Type: BLOOD SPECIMENOrdering Facility: [facility] Address: [address] [place] [address] Performed By: #### 2 4323-8, 91641-8 ####[facility] [id number] [place] [address] [place] PT panel Coag (PPP)on 2023 INR Coag (PPP) [Relative time] 1.0 {INR} Normal 0.9-1.3 [facility] Comment on above: Order Comment: [place] bill Type: BLOOD SPECIMEN [facility] Address: [address] [place] [address] Result Comment: Janeth min K Antagonist (VKA) Therapeutic Range: INR 2 to 3 (Target INR of 2.5) Note: For patients treated with VKA drugs, such as warfarin, the [place] [employer] 2012 Guideline recommends [...] Chest 2012, 141:7S-47S Mary RA, et al. [facility] 2017, 70: 252-289 Performed By: #### 3 4528-0, PTTAC #### [facility] CLIA [id number] [address] [place] [address] [place] PT Coag (PPP) [Time] 10.9 s Normal 9.7-13.0 [facility] Comment on above: Order Comment: Speci men Type: BLOOD SPECIMEN [facility]ing Facility: [facility] Address: [address] [place] [address] Performed By: #### 3 4528-0, PTTAC #### [facility] CLIA [id number] [address] [place] [address] [place] PTT, ANTICOAGULANT THERAPYon 12-01-2023 aPTT Coag (PPP) [Time] 57.5 s High 23.0-32.4 [facility] Comment on above: Order Comment: Speci men Type: BLOOD SPECIMENOrdering Facility: [facility] Address: [address] [place] [address] Performed By: #### P TTAC ####[facility] [id number] [place] [address] [place] aPTT Coag (PPP) [Time] 53.8 s High 23.0-32.4 [facility] Comment on above: Order Comment: Speci men Type: BLOOD SPECIMENOrdering Facility: [facility] Address: [address] [place] [address] Performed By: #### P TTAC ####[facility] [id number] [place] [address] [place] aPTT Coag (PPP) [Time] 42.7 s High 23.0-32.4 [facility] Comment on above: Order Comment: Speci men Type: BLOOD SPECIMEN [facility] Address: [address] [place] [address] Performed By: #### 3 4528-0, PTTAC #### [facility] CLIA [id number] [address] [place] [address] [place] aPTT Coag (PPP) [Time] 70.3 s High 23.0-32.4 [facility] Comment on above: Order Comment: Speci men Type: BLOOD SPECIMENOrdering Facility: [facility] Address: [address] [place] [address] Performed By: #### P TTA ####[facility] [id number] [place] [address] [place] CBC panel Auto (Bld)on 11-29 Erythrocyte distribution width (RBC) [Ratio] 14.6 % Normal 11.5-15.0 [facility] Comment on above: Order Comment: Speci men Type: BLOOD SPECIMENOrdering Facility: [facility] Address: [address] [place] [address] Performed By: #### 5 8410-2 ####[facility] [id number] [place] [address] [place] Hematocrit (Bld) [Volume fraction] 39.7 % Normal 36.0-46.0 [facility] Comment on above: Order Comment: Speci men Type: BLOOD SPECIMENOrdering Facility: [facility] Address: [address] [place] [address] Performed By: #### 5 8410-2 ####[facility] [id number] [place] [address] [place] Hemoglobin (Bld) [Mass/Vol] 13.4 g/dL Normal 11.5-15.5 [facility] Comment on above: Order Comment: Speci men Type: BLOOD SPECIMENOrdering Facility: [facility] Address: [address] [place] [address] Performed By: #### 5 8410-2 ####[facility] [id number] [place] [address] [place] MCH (RBC) [Entitic mass] 31.8 pg Normal 26.0-34.0 [facility] Comment on above: Order Comment: Speci men Type: BLOOD SPECIMENOrdering Facility: [facility] Address: [address] [place] [address] Performed By: #### 5 8410-2 ####[facility] [id number] [place] [address] [place] MCHC (RBC) [Mass/Vol] 33.8 g/dL Normal 30.5-36.0 [facility] Comment on above: Order Comment: Speci men Type: BLOOD SPECIMENOrdering Facility: [facility] Address: [address] [place] [address] Performed By: #### 5 8410-2 ####[facility] [id number] [place] [address] [place] MCV (RBC) [Entitic vol] 94.3 fL Normal 80.0-100.0 [facility] Comment on above: Order Comment: Speci men Type: BLOOD SPECIMENOrdering Facility: [facility] Address: [address] [place] [address] Performed By: #### 5 8410-2 ####[facility] [id number] [place] [address] [place] Nucleated RBC (Bld) [#/Vol] 10*3/uL Normal <0.01 [facility] Comment on above: Order Comment: Speci men Type: BLOOD SPECIMENOrdering Facility: [facility] Address: [address] [place] [address] Performed By: #### 5 8410-2 ####[facility] [id number] [place] [address] [place] Platelet mean volume (Bld) [Entitic vol] 11.1 fL Normal 9.0-12.7 [facility] Comment on above: Order Comment: Speci men Type: BLOOD SPECIMENOrdering Facility: [facility] Address: [address] [place] [address] Performed By: #### 5 8410-2 ####[facility] [id number] [place] [address] [place] Platelets (Bld) [#/Vol] 179 10*3/uL Normal 150-400 [facility] Comment on above: Order Comment: Speci men Type: BLOOD SPECIMENOrdering Facility: [facility] Address: [address] [place] [address] Performed By: #### 5 8410-2 ####[facility] [id number] [place] [address] [place] RBC (Bld) [#/Vol] 4.21 10*6/uL Normal 3.90-5.20 [facility] Comment on above: Order Comment: Speci men Type: BLOOD SPECIMENOrdering Facility: [facility] Address: [address] [place] [address] Performed By: #### 5 8410-2 ####[facility] [id number] [place] [address] [place] WBC (Bld) [#/Vol] 4.99 10*3/uL Normal 3.70-11.00 [facility] Comment on above: Order Comment: Speci men Type: BLOOD SPECIMENOrdering Facility: [facility] Address: [address] [place] [address] Performed By: #### 5 8410-2 ####[facility] [id number] [place] [address] [place] Comprehensive metabolic 2000 panelon 11-30-2023 Albumin [Mass/Vol] 4.4 g/dL Normal 3.9-4.9 [facility] Comment on above: Order Comment: Speci men Type: BLOOD SPECIMENOrdering Facility: [facility] Address: [address] [place] [address] Performed By: #### 2 4323-8, 29439-3 ####[facility] [id number] [address] [id number] [address] [place] ALP [Catalytic activity/Vol] 95 U/L Normal 34-123 [facility] Comment on above: Order Comment: Speci men Type: BLOOD SPECIMENOrdering Facility: [facility] Address: [address] [place], [place] [address] Performed By: #### 2 4323-8, ####[facility] [id number] [place] [address] [place] ALT [Catalytic activity/Vol] 28 U/L Normal 7-38 [facility] Comment on above: Order Comment: Speci men Type: BLOOD SPECIMENOrdering Facility: [facility] Address: [address] [place] [address] Performed By: #### 2 4323-8, ####[facility] [id number] [place] [address] [place] Anion gap [Moles/Vol] 16 mmol/L Normal 9-18 [facility] Comment on above: Order Comment: Speci men Type: BLOOD SPECIMENOrdering Facility: [facility] Address: [address] [place] [address] Performed By: #### 2 4323-8, ####[facility] [id number] [place] [address] [place] AST [Catalytic activity/Vol] 33 U/L Normal 13-35 [facility] Comment on above: Order Comment: Speci men Type: BLOOD SPECIMENOrdering Facility: [facility] Address: [address] [place], [place] [address] Performed By: #### 2 4323-8, ####[facility] [id number] [place] [address] [place] Bilirubin [Mass/Vol] 0.8 mg/dL Normal 0.2-1.3 [facility] Comment on above: Order Comment: Speci men Type: BLOOD SPECIMENOrdering Facility: [facility] Address: [address] [place], [place] [address] Performed By: #### 2 4323-8, ####[facility] [id number] [place] [address] [place] Calcium [Mass/Vol] 10.4 mg/dL High 8.5-10.2 [facility] Comment on above: Order Comment: Speci men Type: BLOOD SPECIMENOrdering Facility: [facility] Address: [address] [place] [address] Performed By: #### 2 4322-8, ####[facility] [id number] [place] [address] [place] Chloride [Moles/Vol] 97 mmol/L Normal 97-105 [facility] Comment on above: Order Comment: Speci men Type: BLOOD SPECIMENOrdering Facility: [facility] Address: [address] [place] [address] Performed By: #### 2 4322-8, ####[facility] [id number] [place] [address] [place] CO2 [Moles/Vol] 25 mmol/L Normal 22-30 [facility] Comment on above: Order Comment: Speci men Type: BLOOD SPECIMENOrdering Facility: [facility] Address: [address] [place], [place] [address] Performed By: #### 2 4322-8, ####[facility] [id number] [place] [id number] [place] Creatinine [Mass/Vol] 1.80 mg/dL High 0.58-0.96 [facility] Comment on above: Order Comment: Speci men Type: BLOOD SPECIMENOrdering Facility: [facility] Address: [address] [place], [place] [address] Performed By: #### 2 432-8, ####[facility] [id number] [place] [address] [place] Creatinine and Glomerular filtration rate.predicted panel (S/P/Bld) 29 mL/min/1.73m??? Low >=60 [facility] Comment on above: Order Comment: Specclara bill Type: BLOOD SPECIMENOrdering Facility: [facility] Address: [address] [place] [address] Result Comment: Amy mated Glomerular Filtration Rate [...] actual GFR. Performed By: #### 2 4323-8, 97144-1 ####[facility] [id number] [place] [address] [place] Glucose [Mass/Vol] 98 mg/dL Normal 74-99 [facility] Comment on above: Order Comment: Tremayne bill Type: BLOOD SPECIMENOrdering Facility: [facility] Address: [address] [place] [address] Result Comment: The [place] [employer] (ADA) provides guidance for cutoff [...] Standards of Medical Care in Diabetes 2016, [place] [employer]. Diabetes Care. 2016.39(Suppl 1). Performed By: #### 2 4323-8, 94478-1 ####[facility] [id number] [place] [address] [place] Potassium [Moles/Vol] 3.8 mmol/L Normal 3.7-5.1 [facility] Comment on above: Order Comment: Speci men Type: BLOOD SPECIMENOrdering Facility: [facility] Address: [address] [place] [address] Performed By: #### 2 4323-8, ####[facility] [id number] [place] [address] [place] Protein [Mass/Vol] 7.2 g/dL Normal 6.3-8.0 [facility] Comment on above: Order Comment: Speci men Type: BLOOD SPECIMENOrdering Facility: [facility] Address: [address] [place] [address] Performed By: #### 2 4323-8, ####[facility] [id number] [place] [address] [place] Sodium [Moles/Vol] 138 mmol/L Normal 136-144 [facility] Comment on above: Order Comment: Speci men Type: BLOOD SPECIMENOrdering Facility: [facility] Address: [address] [place] [address] Performed By: #### 2 4323-8, ####[facility] [id number] [place] [address] [place] Urea nitrogen [Mass/Vol] 39 mg/dL High - [facility] Comment on above: Order Comment: Speci men Type: BLOOD SPECIMENOrdering Facility: [facility] Address: [address] [place] [address] Performed By: #### 2 4323-8, ####[facility] [id number] [place] [address] [place] Magnesium SerPl-mCncon 11-29 Magnesium [Mass/Vol] 2.2 mg/dL Normal 1.7-2.3 [facility] Comment on above: Order Comment: Speci fly Type: BLOOD SPECIMENOrdering Facility: [facility] Address: [address] [place] [address] Performed By: #### 2 4323-8, 80257-6 ####[facility] [id number] [place] [address] [place] PT panel Coag (PPP)on 2023 INR Coag (PPP) [Relative time] 1.0 {INR} Normal 0.9-1.3 [facility] Comment on above: Order Comment: Tremayne bill Type: BLOOD SPECIMENOrdering Facility: [facility] Address: [address] [place] [address] Result Comment: Janeth min K Antagonist (VKA) Therapeutic Range: INR 2 to 3 (Target INR of 2.5) Note: For patients treated with VKA drugs, such as warfarin, the [place] [employer] 2012 Guideline recommends [...] Chest 2012, 141:7S-47S Mary RA, et al. [facility] 2017, 70: 252-289 Performed By: #### 3 4528-0, PTTAC ####[facility] [id number] [place] [address] [place] PT Coag (PPP) [Time] 11.0 s Normal 9.7-13.0 [facility] Comment on above: Order Comment: Specclara bill Type: BLOOD SPECIMENOrdering Facility: [facility] Address: [address] [place] [address] Performed By: #### 3 4528-0, PTTAC ####[facility] [id number] [place] [address] [place] PTT, ANTICOAGULANT THERAPYon 11-30-2023 aPTT Coag (PPP) [Time] 41.0 s High 23.0-32.4 [facility] Comment on above: Order Comment: Speci men Type: BLOOD SPECIMEN [facility] Address: [address] [place] [address] Performed By: #### 3 4528-0, PTTAC #### [facility] CLIA [id number] [address] [place] [address] [place] aPTT Coag (PPP) [Time] 70.0 s High 23.0-32.4 [facility] Comment on above: Order Comment: Speci men Type: BLOOD SPECIMENOrdering Facility: [facility] Address: [address] [place] [address] Performed By: #### 3 4528-0, PTTAC ####[facility] [id number] [place] [address] [place] CBC panel Auto (Bld)on 11-28 Erythrocyte distribution width (RBC) [Ratio] 14.6 % Normal 11.5-15.0 [facility] Comment on above: Order Comment: Speci men Type: BLOOD SPECIMENOrdering Facility: [facility] Address: [address] [place] [address] Performed By: #### 5 8410-2 ####[facility] [id number] [place] [address] [place] Hematocrit (Bld) [Volume fraction] 38.3 % Normal 36.0-46.0 [facility] Comment on above: Order Comment: Speci men Type: BLOOD SPECIMENOrdering Facility: [facility] Address: [address] [place] [address] Performed By: #### 5 8410-2 ####[facility] [id number] [place] [address] [place] Hemoglobin (Bld) [Mass/Vol] 12.5 g/dL Normal 11.5-15.5 [facility] Comment on above: Order Comment: Speci men Type: BLOOD SPECIMENOrdering Facility: [facility] Address: [address] [place] [address] Performed By: #### 5 8410-2 ####[facility] [id number] [place] [address] [place] MCH (RBC) [Entitic mass] 31.0 pg Normal 26.0-34.0 [facility] Comment on above: Order Comment: Speci men Type: BLOOD SPECIMENOrdering Facility: [facility] Address: [address] [place] [address] Performed By: #### 5 8410-2 ####[facility] [id number] [place] [address] [place] MCHC (RBC) [Mass/Vol] 32.6 g/dL Normal 30.5-36.0 [facility] Comment on above: Order Comment: Speci men Type: BLOOD SPECIMENOrdering Facility: [facility] Address: [address] [place] [address] Performed By: #### 5 8410-2 ####[facility] [id number] [place] [address] [place] MCV (RBC) [Entitic vol] 95.0 fL Normal 80.0-100.0 [facility] Comment on above: Order Comment: Speci men Type: BLOOD SPECIMENOrdering Facility: [facility] Address: [address] [place] [address] Performed By: #### 5 8410-2 ####[facility] [id number] [place] [address] [place] Nucleated RBC (Bld) [#/Vol] 10*3/uL Normal <0.01 [facility] Comment on above: Order Comment: Speci men Type: BLOOD SPECIMENOrdering Facility: [facility] Address: [address] [place] [address] Performed By: #### 5 8410-2 ####[facility] [id number] [place] [address] [place] Platelet mean volume (Bld) [Entitic vol] 11.3 fL Normal 9.0-12.7 [facility] Comment on above: Order Comment: Speci men Type: BLOOD SPECIMENOrdering Facility: [facility] Address: [address] [place] [address] Performed By: #### 5 8410-2 ####[facility] [id number] [place] [address] [place] Platelets (Bld) [#/Vol] 177 10*3/uL Normal 150-400 [facility] Comment on above: Order Comment: Speci men Type: BLOOD SPECIMENOrdering Facility: [facility] Address: [address] [place] [address] Performed By: #### 5 8410-2 ####[facility] [id number] [place] [address] [place] RBC (Bld) [#/Vol] 4.03 10*6/uL Normal 3.90-5.20 [facility] Comment on above: Order Comment: Speci men Type: BLOOD SPECIMENOrdering Facility: [facility] Address: [address] [place] [address] Performed By: #### 5 8410-2 ####[facility] [id number] [place] [address] [place] WBC (Bld) [#/Vol] 5.21 10*3/uL Normal 3.70-11.00 [facility] Comment on above: Order Comment: Speci men Type: BLOOD SPECIMENOrdering Facility: [facility] Address: [address] [place] [address] Performed By: #### 5 8410-2 ####[facility] [id number] [place] [address] [place] Comprehensive metabolic 2000 panelon 11-29-2023 Albumin [Mass/Vol] 4.3 g/dL Normal 3.9-4.9 [facility] Comment on above: Order Comment: Speci men Type: BLOOD SPECIMEN [facility] Address: [address] [place] [address] Performed By: #### 3 4528-0, PTTAC #### [facility] CLIA [id number] [address] [place] [address] [place] ALP [Catalytic activity/Vol] 91 U/L Normal 34-123 [facility] Comment on above: Order Comment: Speci men Type: BLOOD SPECIMEN [facility] Address: [address] [place] [address] Performed By: #### 3 4528-0, PTTAC #### [facility] CLIA [id number] [address] [place] [address] [place] ALT [Catalytic activity/Vol] 19 U/L Normal 7-38 [facility] Comment on above: Order Comment: Speci men Type: BLOOD SPECIMEN [facility] Address: [address] [place] [address] Performed By: #### 3 4528-0, PTTAC #### [facility] CLIA [id number] [address] [place] [address] [place] Anion gap [Moles/Vol] 16 mmol/L Normal 9-18 [facility] Comment on above: Order Comment: Speci men Type: BLOOD SPECIMEN [facility] Address: [address] [place] [address] Performed By: #### 3 4528-0, PTTAC #### [facility] CLIA [id number] [address] [place] [address] [place] AST [Catalytic activity/Vol] 23 U/L Normal 13-35 [facility] Comment on above: Order Comment: Speci men Type: BLOOD SPECIMEN [facility] Address: [address] [place] [address] Performed By: #### 3 4528-0, PTTAC #### [facility] CLIA [id number] [address] [place] [address] [place] Bilirubin [Mass/Vol] 0.7 mg/dL Normal 0.2-1.3 [facility] Comment on above: Order Comment: Speci men Type: BLOOD SPECIMEN [facility] Address: [address] [place] [address] Performed By: #### 3 4528-0, PTTAC #### [facility] CLIA [id number] [address] [place] [address] [place] Calcium [Mass/Vol] 10.3 mg/dL High 8.5-10.2 [facility] Comment on above: Order Comment: Speci men Type: BLOOD SPECIMEN [facility] Address: [address] [place] [address] Performed By: #### 3 4528-0, PTTAC #### [facility] CLIA [id number] [address] [place] [address] [place] Chloride [Moles/Vol] 99 mmol/L Normal 97-105 [facility] Comment on above: Order Comment: Speci men Type: BLOOD SPECIMEN [facility] Address: [address] [place] [address] Performed By: #### 3 4528-0, PTTAC #### [facility] CLIA [id number] [address] [place] [address] [place] CO2 [Moles/Vol] 24 mmol/L Normal 22-30 [facility] Comment on above: Order Comment: Speci men Type: BLOOD SPECIMEN [facility] Address: [address] [place] [address] Performed By: #### 3 4528-0, PTTAC #### [facility] CLIA [id number] [address] [place] [address] [place] Creatinine [Mass/Vol] 1.75 mg/dL High 0.58-0.96 [facility] Comment on above: Order Comment: Speci men Type: BLOOD SPECIMEN [facility] Address: [address] [place] [address] Performed By: #### 3 4528-0, PTTAC #### [facility] CLIA [id number] [address] [place] [address] [place] Creatinine and Glomerular filtration rate.predicted panel (S/P/Bld) 30 mL/min/1.73m??? Low >=60 [facility] Comment on above: Order Comment: Speci men Type: BLOOD SPECIMEN [facility] Address: [address] [place] [address] Result Comment: Amy mated Glomerular Filtration Rate [...] Performed By: #### 3 4528-0, PTTAC #### [facility] CLIA [id number] [address] [place] [address] [place] Glucose [Mass/Vol] 97 mg/dL Normal 74-99 [facility] Comment on above: Order Comment: Speci men Type: BLOOD SPECIMEN [facility] Address: [address] [place] [address] Result Comment: The [place] [employer] (ADA) provides guidance for cutoff [...] Standards of Medical Care in Diabetes 2016, [place] [employer]. Diabetes Care. 2016.39(Suppl 1). Performed By: #### 3 4528-0, PTTAC #### [facility] CLIA [id number] [address] [place] [address] [place] Potassium [Moles/Vol] 4.0 mmol/L Normal 3.7-5.1 [facility] Comment on above: Order Comment: Speci men Type: BLOOD SPECIMEN [facility] Address: [address] [place] [address] Performed By: #### 3 4528-0, PTTAC #### [facility] CLIA [id number] [address] [place] [address] [place] Protein [Mass/Vol] 7.1 g/dL Normal 6.3-8.0 [facility] Comment on above: Order Comment: Speci men Type: BLOOD SPECIMEN [facility] Address: [address] [place] [address] Performed By: #### 3 4528-0, PTTAC #### [facility] CLIA [id number] [address] [place] [address] [place] Sodium [Moles/Vol] 139 mmol/L Normal 136-144 [facility] Comment on above: Order Comment: Speci men Type: BLOOD SPECIMEN Ordering Facility: [facility] Address: [address] [place] [address] Performed By: #### 3 4528-0, PTTAC #### [facility] CLIA [id number] [address] [place] [address] [place] Urea nitrogen [Mass/Vol] 39 mg/dL High 02-28 [facility] Comment on above: Order Comment: [place] bill Type: BLOOD SPECIMEN Ordering Facility: [facility] Address: [address] [place] [address] Performed By: #### 3 4528-0, PTTAC #### [facility] CLIA [id number] [address] [place] [address] [place] Magnesium SerPl-mCncon 11-28 Magnesium [Mass/Vol] 2.1 mg/dL Normal 1.7-2.3 [facility] Comment on above: Order Comment: [place] bill Type: BLOOD SPECIMEN Ordering Facility: [facility] Address: [address] [place], [place] [address] Performed By: #### 3 4528-0, PTTAC #### [facility] CLIA [id number] [address] [place] [address] [place] PT panel Coag (PPP)on 2023 INR Coag (PPP) [Relative time] 1.0 {INR} Normal 0.9-1.3 [facility] Comment on above: Order Comment: Tremayne bill Type: BLOOD SPECIMENOrdering Facility: [facility] Address: [address] [place] [address] Result Comment: Janeth min K Antagonist (VKA) Therapeutic Range: INR 2 to 3 (Target INR of 2.5) Note: For patients treated with VKA drugs, such as warfarin, the [place] [employer] 2012 Guideline recommends [...] Chest 2012, 141:7S-47S Mary WILLIAMSON et al. [facility] 2017, 70: 252-289 Performed By: #### 3 4528-0, PTTAC ####[facility] [id number] [place] [address] [place] PT Coag (PPP) [Time] 11.0 s Normal 9.7-13.0 [facility] Comment on above: Order Comment: Speci men Type: BLOOD SPECIMENOrdering Facility: [facility] Address: [address] [place] [address] Performed By: #### 3 4528-0, PTTAC ####[facility] [id number] [place] [address] [place] PTT, ANTICOAGULANT THERAPYon 11-29-2023 aPTT Coag (PPP) [Time] 55.0 s High 23.0-32.4 [facility] Comment on above: Order Comment: Speci men Type: BLOOD SPECIMENOrdering Facility: [facility] Address: [address] [place] [address] Performed By: #### 3 4528-0, PTTAC ####[facility] [id number] [place] [address] [place] CBC panel Auto (Bld)on 11-27 Erythrocyte distribution width (RBC) [Ratio] 14.5 % Normal 11.5-15.0 [facility] Comment on above: Order Comment: Speci men Type: BLOOD SPECIMENOrdering Facility: [facility] Address: [address] [place] [address] Performed By: #### 5 8410-2 ####[facility] [id number] [id number] [address] [place] Hematocrit (Bld) [Volume fraction] 37.0 % Normal 36.0-46.0 [facility] Comment on above: Order Comment: Speci men Type: BLOOD SPECIMENOrdering Facility: [facility] Address: [address] [place] [address] Performed By: #### 5 8410-2 ####[facility] [id number] [place] [address] [place] Hemoglobin (Bld) [Mass/Vol] 12.1 g/dL Normal 11.5-15.5 [facility] Comment on above: Order Comment: Speci men Type: BLOOD SPECIMENOrdering Facility: [facility] Address: [address] [place] [address] Performed By: #### 5 8410-2 ####[facility] [id number] [place] [address] [place] MCH (RBC) [Entitic mass] 31.4 pg Normal 26.0-34.0 [facility] Comment on above: Order Comment: Speci men Type: BLOOD SPECIMENOrdering Facility: [facility] Address: [address] [place] [address] Performed By: #### 5 8410-2 ####[facility] [id number] [place] [address] [place] MCHC (RBC) [Mass/Vol] 32.7 g/dL Normal 30.5-36.0 [facility] Comment on above: Order Comment: Speci men Type: BLOOD SPECIMENOrdering Facility: [facility] Address: [address] [place] [address] Performed By: #### 5 8410-2 ####[facility] [id number] [place] [address] [place] MCV (RBC) [Entitic vol] 96.1 fL Normal 80.0-100.0 [facility] Comment on above: Order Comment: Speci men Type: BLOOD SPECIMENOrdering Facility: [facility] Address: [address] [place] [address] Performed By: #### 5 8410-2 ####[facility] [id number] [place] [address] [place] Nucleated RBC (Bld) [#/Vol] 10*3/uL Normal <0.01 [facility] Comment on above: Order Comment: Speci men Type: BLOOD SPECIMENOrdering Facility: [facility] Address: [address] [place] [address] Performed By: #### 5 8410-2 ####[facility] [id number] [place] [address] [place] Platelet mean volume (Bld) [Entitic vol] 10.8 fL Normal 9.0-12.7 [facility] Comment on above: Order Comment: Speci men Type: BLOOD SPECIMENOrdering Facility: [facility] Address: [address] [place] [address] Performed By: #### 5 8410-2 ####[facility] [id number] [place] [address] [place] Platelets (Bld) [#/Vol] 157 10*3/uL Normal 150-400 [facility] Comment on above: Order Comment: Speci men Type: BLOOD SPECIMENOrdering Facility: [facility] Address: [address] [place] [address] Performed By: #### 5 8410-2 ####[facility] [id number] [place] [address] [place] RBC (Bld) [#/Vol] 3.85 10*6/uL Low 3.90-5.20 [facility] Comment on above: Order Comment: Speci men Type: BLOOD SPECIMENOrdering Facility: [facility] Address: [address] [place] [address] Performed By: #### 5 8410-2 ####[facility] [id number] [place] [address] [place] WBC (Bld) [#/Vol] 5.03 10*3/uL Normal 3.70-11.00 [facility] Comment on above: Order Comment: Speci men Type: BLOOD SPECIMENOrdering Facility: [facility] Address: [address] [place] [address] Performed By: #### 5 8410-2 ####[facility] [id number] [place] [address] [place] CNOVon 11-28-2023 CNOV Office Visit (PULLMN ) -- CECE HUBBARD ([id number]) 1945 F Date Time Provider Department 11/28/23 9:45 AM [facility] MAIN 3 PULLMN During your visit today, we recorded the following information about you: Referring Provider: JOEL PARRISH [[id number]] Allergies As of Date: 11/28/2023 Noted Allergy [...] Encounter Status:Closed by RICHA FERNANDO on 11/28/23 Normal [facility] CNOV Office Visit (PULLMN ) -- CECE HUBBARD ([id number]) 1945 F Date Time Provider Department 11/28/23 9:30 AM [facility] LAB MAIN 3 PULLMN During your visit today, we recorded the following information about you: Richa Fernando, UNDERWRITING DIRECTOR 11/28/2023 11:06 AM Signed PULM FUNCTION SMARTBLOCK: Provider: Gaetano Shaw MD Spirometry: 1 DLCO: 1 System: 8 - [id number] Referring Provider: JOEL PARRISH [[id number]] Allergies As of Date: 11/28/2023 Noted Allergy [...] Encounter Status:Closed by RICHA FERNANDO on 11/28/23 Normal [facility] CONSULT PROGon 11-28-2023 CONSULT PROG HNO ID: [id number] Author: CHRISTINE BRICE APRN.TICKET DISPENSER CHANGER Service: Cardiac Surgery Author Type: Nurse Practitioner Type: Consult Progress Note Filed: 11/28/2023 19:08 Note Text: Cardiac Surgery Consult Progress note AND Preop Checklist Patient Name: Cece Hubbard : 1945 Primary Service: Joel Parrish MD Proposed Surgery: MVr, CABG, LAAL+/- Maze REDO: No Surgery Date: 12/01 Surgeon: Dr. Shaw Hospital Day: 3 Subjective/HPI: Cece Hubbard is 78 [...] has intervally gone away. Currently resides in [place], [place] with Elio. Retired from [employer]. Denied smoking/street drugs/EtOH use. Right handed. No [...] CREAT 1.87* (more content not included)... Normal [facility] Comprehensive metabolic 2000 panelon 11-28-2023 Albumin [Mass/Vol] 4.0 g/dL Normal 3.9-4.9 [facility] Comment on above: Order Comment: Speci men Type: BLOOD SPECIMENOrdering Facility: [facility] Address: [address] [place] [address] Performed By: #### 2 4323-8, ####[facility] [id number] [place] [address] [place] ALP [Catalytic activity/Vol] 89 U/L Normal 34-123 [facility] Comment on above: Order Comment: Speci men Type: BLOOD SPECIMENOrdering Facility: [facility] Address: [address] [place] [address] Performed By: #### 2 4323-8, ####[facility] [id number] [place] [address] [place] ALT [Catalytic activity/Vol] 10 U/L Normal 7-38 [facility] Comment on above: Order Comment: Speci men Type: BLOOD SPECIMENOrdering Facility: [facility] Address: [address] [place] [id number] Performed By: #### 2 432-8, ####[facility] [id number] [place] [id number] [place] Anion gap [Moles/Vol] 12 mmol/L Normal 9-18 [facility] Comment on above: Order Comment: Speci men Type: BLOOD SPECIMENOrdering Facility: [facility] Address: [address] [place] [address] Performed By: #### 2 432-8, ####[facility] [id number] [place] [address] [place] AST [Catalytic activity/Vol] 12 U/L Low 13-35 [facility] Comment on above: Order Comment: Speci men Type: BLOOD SPECIMENOrdering Facility: [facility] Address: [address] [place] [address] Performed By: #### 2 8, ####[facility] [id number] [place] [address] [place] Bilirubin [Mass/Vol] 0.5 mg/dL Normal 0.2-1.3 [facility] Comment on above: Order Comment: Speci men Type: BLOOD SPECIMENOrdering Facility: [facility] Address: [address] [place], [place] [address] Performed By: #### 2 4323-03, ####[facility] [id number] [place] [id number] [place] Calcium [Mass/Vol] 10.0 mg/dL Normal 8.5-10.2 [facility] Comment on above: Order Comment: Speci men Type: BLOOD SPECIMENOrdering Facility: [facility] Address: [address] [place], [place] [address] Performed By: #### 2 4322-8, ####[facility] [id number] [place] [address] [place] Chloride [Moles/Vol] 102 mmol/L Normal 97-105 [facility] Comment on above: Order Comment: Speci men Type: BLOOD SPECIMENOrdering Facility: [facility] Address: [address] [place] [address] Performed By: #### 2 4323-8, 48884-0 ####[facility] [id number] [place] [address] [place] CO2 [Moles/Vol] 26 mmol/L Normal 22-30 [facility] Comment on above: Order Comment: Speci men Type: BLOOD SPECIMENOrdering Facility: [facility] Address: [address] [place] [address] Performed By: #### 2 4323-8, 25356-4 ####[facility] [id number] [place] [address] [place] Creatinine [Mass/Vol] 1.87 mg/dL High 0.58-0.96 [facility] Comment on above: Order Comment: Speci men Type: BLOOD SPECIMENOrdering Facility: [facility] Address: [address] [place] [address] Performed By: #### 2 4323-8, 44588-2 ####[facility] [id number] [place] [address] [place] Creatinine and Glomerular filtration rate.predicted panel (S/P/Bld) 27 mL/min/1.73m??? Low >=60 [facility] Comment on above: Order Comment: Speci men Type: BLOOD SPECIMENOrdering Facility: [facility] Address: [address] [place] [address] Result Comment: Amy mated Glomerular Filtration Rate [...] actual GFR. Performed By: #### 2 4323-8, ####[facility] [id number] [address] [address] [place] Glucose [Mass/Vol] 106 mg/dL High 74-99 [facility] Comment on above: Order Comment: Tremayne bill Type: BLOOD SPECIMENOrdering Facility: [facility] Address: [address] [place] [address] Result Comment: The [place] [employer] (ADA) provides guidance for cutoff [...] Standards of Medical Care in Diabetes 2016, [place] [employer]. Diabetes Care. 2016.39(Suppl 1). Performed By: #### 2 43210-16, ####[facility] [id number] [address] [address] [place] Potassium [Moles/Vol] 4.5 mmol/L Normal 3.7-5.1 [facility] Comment on above: Order Comment: Tremayne bill Type: BLOOD SPECIMENOrdering Facility: [facility] Address: [address] [place] [address] Performed By: #### 2 432-, ####[facility] [id number] [facility] [address] [address] [place] Protein [Mass/Vol] 6.5 g/dL Normal 6.3-8.0 [facility] Comment on above: Order Comment: Speci men Type: BLOOD SPECIMENOrdering Facility: [facility] Address: [address] [place] [address] Performed By: #### 2 4323-8, ####[facility] [id number] [place] [address] [place] Sodium [Moles/Vol] 140 mmol/L Normal 136-144 [facility] Comment on above: Order Comment: Speci men Type: BLOOD SPECIMENOrdering Facility: [facility] Address: [address] [place] [address] Performed By: #### 2 4323-8, ####[facility] [id number] [place] [address] [place] Urea nitrogen [Mass/Vol] 30 mg/dL High 7-21 [facility] Comment on above: Order Comment: Speci men Type: BLOOD SPECIMENOrdering Facility: [facility] Address: [address] [place] [address] Performed By: #### 2 4323-8, ####[facility] [id number] [place] [address] [place] ECHOon 11-28-2023 Echocardiography Echocardiography Rep ort: Transthoracic Echo [facility] Bedside Date of service: 11/28/2023 1:30:40 PM ROOM SUPERVISOR Ordering physician: JOEL PARRISH Indication: Initial evaluation [...] the prior echocardiographic exam performed on 10/28/2023 ([facility]). AR and MR appear less severe on the current study. * * * Final * * * [employer] [facility] : [id number] Normal [facility] Magnesium SerPl-mCncon 11-27 Magnesium [Mass/Vol] 2.2 mg/dL Normal 1.7-2.3 [facility] Comment on above: Order Comment: Tremayne bill Type: BLOOD SPECIMENOrdering Facility: [facility] Address: [address] [place] [address] Performed By: #### 2 4323-8, 64007-1 ####[facility] [id number] [place] [address] [place] PT panel Coag (PPP)on 2023 INR Coag (PPP) [Relative time] 1.0 {INR} Normal 0.9-1.3 [facility] Comment on above: Order Comment: Tremayne bill Type: BLOOD SPECIMEN [facility] Address: [address] [place] [address] Result Comment: Janeth min K Antagonist (VKA) Therapeutic Range: INR 2 to 3 (Target INR of 2.5) Note: For patients treated with VKA drugs, such as warfarin, the [place] [employer] 2012 Guideline recommends [...] Chest 2012, 141:7S-47S Mary RA, et al. [facility] 2017, 70: 252-289 Performed By: #### 3 4528-0, PTTAC #### [facility] CLIA [id number] [address] [place] [address] [place] PT Coag (PPP) [Time] 10.8 s Normal 9.7-13.0 [facility] Comment on above: Order Comment: Speci men Type: BLOOD SPECIMEN [facility] Address: [address] [place] [address] Performed By: #### 3 4528-0, PTTAC #### [facility] CLIA [id number] [address] [place] [address] [place] PTT, ANTICOAGULANT THERAPYon 11-28-2023 aPTT Coag (PPP) [Time] 61.8 s High 23.0-32.4 [facility] Comment on above: Order Comment: Speci men Type: BLOOD SPECIMEN [facility] Address: [address] [place] [address] Performed By: #### 3 4528-0, PTTAC #### [facility] CLIA [id number] [address] [place] [address] [place] US EXT MASS/FLUID COLLECTION RTon 11-28-2023 US EXT MASS/FLUID COLLECTION RT * * *Final Report* * * DATE OF EXAM: Nov 28 2023 4:25PM [facility] 1025 - US EXT MASS/FLUID COLLECTION RT [...] subcutaneous mass or collection area of concern. Pharmacy Account Director: PSCB Transcribe Date/Time: Nov 28 2023 5:22P Dictated by : MATT TRACY MD This examination was interpreted and the report reviewed and electronically signed by: MATT TRACY MD on Nov 28 2023 5:24PM EST [id number] Normal [facility] US MAMMARY ARTERY TAMMI VAS LA Bon 11-28-2023 US [facility] Non-Invasive Vascular Laboratory [facility] J35 Artery Mapping Study Bilateral/Complete Date of [...] to visualise at proximal. Technologist: Lucio Ramos RVT Ordering physician: JOEL PARRISH Interpreting physician: Nany Ohara MD, RPVI Final CC [facility] [facility] : [id number] See Link below for Image Normal [facility] RADIAL ARTERY MAP TAMMI VAS LABon 11-28-2023 US RADIAL ARTERY MAP TAMMI VAS LAB Non-Invasive Vascular Laboratory [facility] J35 Artery Mapping Study Bilateral/Complete Date of [...] flow to the digits. Technologist: Lucio Ramos RVT Ordering physician: JOEL PARRISH Interpreting physician: Nany Ohara MD, RPVI Final CC [facility] : [id number] See Link below for Image Normal [facility] Bacteria Ur Culton 4 Bacteria identified Cx Nom (U) ORGANISM ID: 1 <10,000 CFU/ml Normal urogenital cecille Normal [facility] Comment on above: Performed By: #### 3 4528-0, PTTAC #### [facility] CLIA [id number] [address] [place] [address] [place] CBC panel Auto (Bld)on 11-26 Erythrocyte distribution width (RBC) [Ratio] 14.3 % Normal 11.5-15.0 [facility] Comment on above: Order Comment: Speci men Type: BLOOD SPECIMEN [facility] Address: [address] [place] [address] Performed By: #### 3 4528-0, PTTAC #### [facility] CLIA [id number] [address] [place] [address] [place] Hematocrit (Bld) [Volume fraction] 35.3 % Low 36.0-46.0 [facility] Comment on above: Order Comment: Speci men Type: BLOOD SPECIMEN [facility] Address: [address] [place] [address] Performed By: #### 3 4528-0, PTTAC #### [facility] CLIA [id number] [address] [place] [address] [place] Hemoglobin (Bld) [Mass/Vol] 11.6 g/dL Normal 11.5-15.5 [facility] Comment on above: Order Comment: Speci men Type: BLOOD SPECIMEN [facility] Address: [address] [place] [address] Performed By: #### 3 4528-0, PTTAC #### [facility] CLIA [id number] [address] [place] [address] [place] MCH (RBC) [Entitic mass] 31.4 pg Normal 26.0-34.0 [facility] Comment on above: Order Comment: Speci men Type: BLOOD SPECIMEN [facility] Address: [address] [place] [address] Performed By: #### 3 4528-0, PTTAC #### [facility] CLIA [id number] [address] [place] [address] [place] MCHC (RBC) [Mass/Vol] 32.9 g/dL Normal 30.5-36.0 [facility] Comment on above: Order Comment: Speci men Type: BLOOD SPECIMEN [facility] Address: [address] [place] [address] Performed By: #### 3 4528-0, PTTAC #### [facility] CLIA [id number] [address] [place] [address] [place] MCV (RBC) [Entitic vol] 95.4 fL Normal 80.0-100.0 [facility] Comment on above: Order Comment: Speci men Type: BLOOD SPECIMEN [facility] Address: [address] [place] [address] Performed By: #### 3 4528-0, PTTAC #### [facility] CLIA [id number] [address] [place] [address] [place] Nucleated RBC (Bld) [#/Vol] 10*3/uL Normal <0.01 [facility] Comment on above: Order Comment: Speci men Type: BLOOD SPECIMEN [facility] Address: [address] [place] [address] Performed By: #### 3 4528-0, PTTAC #### [facility] CLIA [id number] [address] [place] [address] [place] Platelet mean volume (Bld) [Entitic vol] 10.9 fL Normal 9.0-12.7 [facility] Comment on above: Order Comment: Speci men Type: BLOOD SPECIMEN [facility] Address: [address] [place] [address] Performed By: #### 3 4528-0, PTTAC #### [facility] CLIA [id number] [address] [place] [address] [place] Platelets (Bld) [#/Vol] 155 10*3/uL Normal 150-400 [facility] Comment on above: Order Comment: Speci men Type: BLOOD SPECIMEN [facility] Address: [address] [place] [address] Performed By: #### 3 4528-0, PTTAC #### [facility] CLIA [id number] [address] [place] [address] [place] RBC (Bld) [#/Vol] 3.70 10*6/uL Low 3.90-5.20 [facility] Comment on above: Order Comment: Speci men Type: BLOOD SPECIMEN [facility] Address: [address] [place] [address] Performed By: #### 3 4528-0, PTTAC #### [facility] CLIA [id number] [address] [place], [place] [address] [place] [address] [place] WBC (Bld) [#/Vol] 5.15 10*3/uL Normal 3.70-11.00 [facility] Comment on above: Order Comment: Speci men Type: BLOOD SPECIMEN [facility] Address: [address] [place] [address] Performed By: #### 3 4528-0, PTTAC #### [facility] CLIA [id number] [address] [place] [address] [place] CONSULT PROGon 11-27-2023 CONSULT PROG HNO ID: [id number] Author: CHRISTINE BRICE APRN.TICKET DISPENSER CHANGER Service: Cardiac Surgery Author Type: Nurse Practitioner Type: Consult Progress Note Filed: 11/27/2023 17:52 Note Text: Cardiac Surgery Consult Progress note AND Preop Checklist Patient Name: Cece Hubbard : 1945 Primary Service: Joel Parrish MD Proposed Surgery: MVr, CABG, LAAL+/- Maze REDO: No Surgery Date: Surgeon: Dr. Shaw Hospital Day: 2 Subjective/HPI: Cece uHbbard is 78 year old female with past [...] has intervally gone away. Currently resides in [place], [place] with Elio. Retired from [employer]. Denied smoking/street drugs/EtOH use. Right handed. No [...] be obtained in 12 months MRI: N/A Groin:11/26 RIGHT SIDE Negative for deep vein [...] to accep (more content not included)... Normal [facility] CT CHEST CARDIAC WO IVCONon 11-27-2023 CT [...] Murphy images reconstructed, saved, and available in [employer] 'Get Images'. STUDY LIMITATIONS: None. RESULT: LINES, [...] AORTIC DIMENSIONS: AORTIC ROOT: 3.5 cm measured [id number]-ibkxd mid ASCENDING THORACIC AORTA: 3.9 cm mid AORTIC ARCH: 2.9 cm mid DESCENDING THORACIC AORTA: 2.7 cm RELATIONSHIP OF THE CARDIOVASCULAR STRUCTURES OF THE STERNUM: Left brachio-cephalic vein lies 8 mm behind the manubrium sternum RV lies 7 mm behind the lower sternum limited upper ABDOMEN: unremarkable Skein Yarn Dyer Helper (topogram) images: Surgical fixation material of the [...] be communicated with the ordering provider via [employer] staff message by [employer] within 2 business days of report finalization. Pharmacy Account Director: SCOTT Transcribe Date/Time: Nov 27 2023 8:57A Dictated by : FLORENCE FERNÁNDEZ MD This examination was interpreted and the report reviewed and electronically signed by: FLORENCE FERNÁNDEZ MD on Nov 27 2023 9:34AM EST [id number] ACTIONABLE Invalid Interpretation Code [facility] Comprehensive metabolic 2000 panelon 11-27-2023 Albumin [Mass/Vol] 4.0 g/dL Normal 3.9-4.9 [facility] Comment on above: Order Comment: Speci men Type: BLOOD SPECIMENOrdering Facility: [facility] Address: [address] [place] [address] Performed By: #### 2 4323-8, 31346-0 ####[facility] [id number] [facility] [id number] [place] [address] [place] ALP [Catalytic activity/Vol] 88 U/L Normal 34-123 [facility] Comment on above: Order Comment: Speci men Type: BLOOD SPECIMENOrdering Facility: [facility] Address: [address] [id number] Performed By: #### 2 4323-8, ####[facility] [id number] [place] [address] [place] ALT [Catalytic activity/Vol] 9 U/L Normal 7-38 [facility] Comment on above: Order Comment: Speci men Type: BLOOD SPECIMENOrdering Facility: [facility] Address: [address] [place] [address] Performed By: #### 2 4323-8, ####[facility] [id number] [place] [address] [place] Anion gap [Moles/Vol] 13 mmol/L Normal 9-18 [facility] Comment on above: Order Comment: Speci men Type: BLOOD SPECIMENOrdering Facility: [facility] Address: [address] [place] [address] Performed By: #### 2 4323-8, ####[facility] [id number] [place] [address] [place] AST [Catalytic activity/Vol] 12 U/L Low 13-35 [facility] Comment on above: Order Comment: Speci men Type: BLOOD SPECIMENOrdering Facility: [facility] Address: [address] [id number] Performed By: #### 2 4323-8, ####[facility] [id number] [place] [address] [place] Bilirubin [Mass/Vol] 0.6 mg/dL Normal 0.2-1.3 [facility] Comment on above: Order Comment: Speci men Type: BLOOD SPECIMENOrdering Facility: [facility] Address: [address] [place] [address] Performed By: #### 2 432-8, ####[facility] [id number] [address] [address] [place] Calcium [Mass/Vol] 9.6 mg/dL Normal 8.5-10.2 [facility] Comment on above: Order Comment: Speci men Type: BLOOD SPECIMENOrdering Facility: [facility] Address: [address] [place] [address] Performed By: #### 2 432-8, ####[facility] [id number] [place] [address] [place] Chloride [Moles/Vol] 101 mmol/L Normal 97-105 [facility] Comment on above: Order Comment: Speci men Type: BLOOD SPECIMENOrdering Facility: [facility] Address: [address] [place] [address] Performed By: #### 2 8, ####[facility] [id number] [place] [address] [place] CO2 [Moles/Vol] 25 mmol/L Normal 22-30 [facility] Comment on above: Order Comment: Speci men Type: BLOOD SPECIMENOrdering Facility: [facility] Address: [address] [place], [place] [address] Performed By: #### 2 4322-8, ####[facility] [id number] [address] [place] [id number] [place] Creatinine [Mass/Vol] 1.78 mg/dL High 0.58-0.96 [facility] Comment on above: Order Comment: Speci men Type: BLOOD SPECIMENOrdering Facility: [facility] Address: [address] [place], [place] [address] Performed By: #### 2 4323-8, ####[facility] [id number] [place] [address] [place] Creatinine and Glomerular filtration rate.predicted panel (S/P/Bld) 29 mL/min/1.73m??? Low >=60 [facility] Comment on above: Order Comment: Tremayne bill Type: BLOOD SPECIMENOrdering Facility: [facility] Address: [address] [place] [address] Result Comment: Amy mated Glomerular Filtration Rate [...] actual GFR. Performed By: #### 2 4323-8, 41529-4 ####[facility]IA [id number] [place] [address] [place] Glucose [Mass/Vol] 109 mg/dL High 74-99 [facility] Comment on above: Order Comment: Tremayne bill Type: BLOOD SPECIMENOrdering Facility: [facility] Address: [address] [place] [address] Result Comment: The [place] [employer] (ADA) provides guidance for cutoff [...] Standards of Medical Care in Diabetes 2016, [place] [employer]. Diabetes Care. 2016.39(Suppl 1). Performed By: #### 2 4323-8, 45361-5 ####[facility]IA [id number] [place] [id number] [place] Potassium [Moles/Vol] 3.9 mmol/L Normal 3.7-5.1 [facility] Comment on above: Order Comment: Speci men Type: BLOOD SPECIMENOrdering Facility: [facility] Address: [address] [place] [address] Performed By: #### 2 4323-8, ####[facility] [id number] [place] [address] [place] Protein [Mass/Vol] 6.4 g/dL Normal 6.3-8.0 [facility] Comment on above: Order Comment: Speci men Type: BLOOD SPECIMENOrdering Facility: [facility] Address: [address] [place] [address] Performed By: #### 2 4323-8, ####[facility] [id number] [place] [address] [place] Sodium [Moles/Vol] 139 mmol/L Normal 136-144 [facility] Comment on above: Order Comment: Speci men Type: BLOOD SPECIMENOrdering Facility: [facility] Address: [address] [place] [address] Performed By: #### 2 4322-8, ####[facility] [id number] [place] [address] [place] Urea nitrogen [Mass/Vol] 22 mg/dL High 7-21 [facility] Comment on above: Order Comment: Speci men Type: BLOOD SPECIMENOrdering Facility: [facility] Address: [address] [place], [place] [address] Performed By: #### 2 4323-8, ####[facility] [id number] [address] [place] [id number] [place] Magnesium SerPl-mCncon 11-26 Magnesium [Mass/Vol] 2.2 mg/dL Normal 1.7-2.3 [facility] Comment on above: Order Comment: Speci men Type: BLOOD SPECIMENOrdering Facility: [facility] Address: [address] [place] [address] Performed By: #### 2 4323-8, 88356-2 ####[facility] [id number] [place] [address] [place] PT panel Coag (PPP)on 2023 INR Coag (PPP) [Relative time] 1.0 {INR} Normal 0.9-1.3 [facility] Comment on above: Order Comment: Tremayne bill Type: BLOOD SPECIMENOrdering Facility: [facility] Address: [address] [place] [address] Result Comment: Janeth min K Antagonist (VKA) Therapeutic Range: INR 2 to 3 (Target INR of 2.5) Note: For patients treated with VKA drugs, such as warfarin, the [place] [employer] 2012 Guideline recommends [...] Chest 2012, 141:7S-47S Mary RA, et al. [facility] 2017, 70: 252-289 Performed By: #### 3 4528-0, PTTAC ####[facility] [id number] [place] [address] [place] PT Coag (PPP) [Time] 10.9 s Normal 9.7-13.0 [facility] Comment on above: Order Comment: Speci men Type: BLOOD SPECIMENOrdering Facility: [facility] Address: [address] [place] [address] Performed By: #### 3 4528-0, PTTAC ####[facility] [id number] [place] [address] [place] PTT, ANTICOAGULANT THERAPYon 11-27-2023 aPTT Coag (PPP) [Time] 66.3 s High 23.0-32.4 [facility] Comment on above: Order Comment: Speci men Type: BLOOD SPECIMENOrdering Facility: [facility] Address: [address] [place] [address] Performed By: #### 3 4528-0, PTTAC ####[facility] LABIA [id number] [place] [address] [place] STAPHYLOCOCCUS AUREUS AND MR SA SCREEN, PCR, NASALon 11-27-2023 S. aureus and MRSA panel ERICK+probe (Nose) Normal Negative [facility] Comment on above: Order Comment: Speci men Type: SWABOrdering Facility: [facility] Address: [address] [place] [address] Result Comment: Nega tive for Staphylococcus aureus by PCR. Negative for MRSA by PCR Performed By: #### S APCR ####[facility]IA [id number] [place] [address] [place] US CAROTID ARTERIES T[facility]MI VAS LABon 11-27-2023 US CAROTID ARTERIES [facility] Non-Invasive Vascular Laboratory [facility] Portable Carotid Duplex Bilateral/Complete Date of service/time: [...] EVA DOW Interpreting physician: Rachell Tellez MD, PALAK Final CC [facility] : [id number] See Link below for Image Normal [facility] LEG VEIN MAP [facility] LABo n 11-27-2023 US LEG VEIN MAP [facility] Non-Invasive Vascular Laboratory [facility] Portable Lower Extremity Vein Mapping Bilateral/Complete Date of service/time: 11/27/2023 11:40:57 AM Name: CEEC HUBBARD Date of : 1945 Age: 78 [...] HARRISON ANDREWS Interpreting physician: Rachell Tellez MD, RPADRIANA Final CC [facility] : [id number] See Link below for Image Normal [facility] CBC W Auto Differential pane l (Bld)on 11-26-2023 Basophils (Bld) [#/Vol] 0.05 10*3/uL Normal <0.11 [facility] Comment on above: Order Comment: Speci men Type: BLOOD SPECIMENOrdering Facility: [facility] Address: [address] [place] [address] Performed By: #### 5 7021-8 ####[facility] [id number] [place] [address] [place] Basophils/100 WBC (Bld) 0.9 % Normal [facility] Comment on above: Order Comment: Speci men Type: BLOOD SPECIMENOrdering Facility: [facility] Address: [address] [place] [address] Performed By: #### 5 7021-8 ####[facility] [id number] [place] [address] [place] Differential cell count method Nom (Bld) Auto Normal [facility] Comment on above: Order Comment: Speci men Type: BLOOD SPECIMENOrdering Facility: [facility] Address: [address] [place] [address] Performed By: #### 5 7021-8 ####[facility] [id number] [place] [address] [place] Eosinophils (Bld) [#/Vol] 0.12 10*3/uL Normal <0.46 [facility] Comment on above: Order Comment: Speci men Type: BLOOD SPECIMENOrdering Facility: [facility] Address: [address] [place] [address] Performed By: #### 5 7021-8 ####[facility] [id number] [place] [address] [place] Eosinophils/100 WBC (Bld) 2.2 % Normal [facility] Comment on above: Order Comment: Speci men Type: BLOOD SPECIMENOrdering Facility: [facility] Address: [address] [place] [address] Performed By: #### 5 7021-8 ####[facility] [id number] [place] [address] [place] Erythrocyte distribution width (RBC) [Ratio] 14.3 % Normal 11.5-15.0 [facility] Comment on above: Order Comment: Speci men Type: BLOOD SPECIMENOrdering Facility: [facility] Address: [address] [place] [address] Performed By: #### 5 7021-8 ####[facility] [id number] [place] [address] [place] Hematocrit (Bld) [Volume fraction] 35.8 % Low 36.0-46.0 [facility] Comment on above: Order Comment: Speci men Type: BLOOD SPECIMENOrdering Facility: [facility] Address: [address] [place] [address] Performed By: #### 5 7021-8 ####[facility] [id number] [place] [address] [place] Hemoglobin (Bld) [Mass/Vol] 11.6 g/dL Normal 11.5-15.5 [facility] Comment on above: Order Comment: Speci men Type: BLOOD SPECIMENOrdering Facility: [facility] Address: [address] [place] [address] Performed By: #### 5 7021-8 ####[facility] [id number] [place] [address] [place] Immature granulocytes (Bld) [#/Vol] 10*3/uL Normal <0.10 [facility] Comment on above: Order Comment: Speci men Type: BLOOD SPECIMENOrdering Facility: [facility] Address: [address] [place] [address] Performed By: #### 5 7021-8 ####[facility] [id number] [place] [address] [place] Immature granulocytes/100 WBC (Bld) 0.2 % Normal [facility] Comment on above: Order Comment: Speci men Type: BLOOD SPECIMENOrdering Facility: [facility] Address: [address] [place] [address] Performed By: #### 5 7021-8 ####[facility] [id number] [place] [address] [place] Lymphocytes (Bld) [#/Vol] 1.69 10*3/uL Normal 1.00-4.00 [facility] Comment on above: Order Comment: Speci men Type: BLOOD SPECIMENOrdering Facility: [facility] Address: [address] [place] [address] Performed By: #### 5 7021-8 ####[facility] [id number] [place] [address] [place] Lymphocytes/100 WBC (Bld) 30.6 % Normal [facility] Comment on above: Order Comment: Speci men Type: BLOOD SPECIMENOrdering Facility: [facility] Address: [address] [place] [address] Performed By: #### 5 7021-8 ####[facility] [id number] [place] [address] [place] MCH (RBC) [Entitic mass] 31.2 pg Normal 26.0-34.0 [facility] Comment on above: Order Comment: Speci men Type: BLOOD SPECIMENOrdering Facility: [facility] Address: [address] [place] [address] Performed By: #### 5 7021-8 ####[facility] [id number] [place] [address] [place] MCHC (RBC) [Mass/Vol] 32.4 g/dL Normal 30.5-36.0 [facility] Comment on above: Order Comment: Speci men Type: BLOOD SPECIMENOrdering Facility: [facility] Address: [address] [place] [address] Performed By: #### 5 7021-8 ####[facility] [id number] [place] [address] [place] MCV (RBC) [Entitic vol] 96.2 fL Normal 80.0-100.0 [facility] Comment on above: Order Comment: Speci men Type: BLOOD SPECIMENOrdering Facility: [facility] Address: [address] [place] [address] Performed By: #### 5 7021-8 ####[facility] [id number] [place] [address] [place] Monocytes (Bld) [#/Vol] 0.63 10*3/uL Normal <0.87 [facility] Comment on above: Order Comment: Speci men Type: BLOOD SPECIMENOrdering Facility: [facility] Address: [address] [place] [address] Performed By: #### 5 7021-8 ####[facility] [id number] [place] [address] [place] Monocytes/100 WBC (Bld) 11.4 % Normal [facility] Comment on above: Order Comment: Speci men Type: BLOOD SPECIMENOrdering Facility: [facility] Address: [address] [place] [address] Performed By: #### 5 7021-8 ####[facility] [id number] [place] [address] [place] Neutrophils (Bld) [#/Vol] 3.02 10*3/uL Normal 1.45-7.50 [facility] Comment on above: Order Comment: Speci men Type: BLOOD SPECIMENOrdering Facility: [facility] Address: [address] [place] [address] Performed By: #### 5 7021-8 ####[facility] [id number] [place] [address] [place] Neutrophils/100 WBC (Bld) 54.7 % Normal [facility] Comment on above: Order Comment: Speci men Type: BLOOD SPECIMENOrdering Facility: [facility] Address: [address] [place] [address] Performed By: #### 5 7021-8 ####[facility] [id number] [place] [address] [place] Nucleated RBC (Bld) [#/Vol] 10*3/uL Normal <0.01 [facility] Comment on above: Order Comment: Speci men Type: BLOOD SPECIMENOrdering Facility: [facility] Address: [address] [place] [address] Performed By: #### 5 7021-8 ####[facility] [id number] [place] [address] [place] Nucleated RBC/100 WBC (Bld) [Ratio] 0.0 /100 WBC Normal [facility] Comment on above: Order Comment: Speci men Type: BLOOD SPECIMENOrdering Facility: [facility] Address: [address] [place] [address] Performed By: #### 5 7021-8 ####[facility] [id number] [place] [address] [place] Platelet mean volume (Bld) [Entitic vol] 11.3 fL Normal 9.0-12.7 [facility] Comment on above: Order Comment: Speci men Type: BLOOD SPECIMENOrdering Facility: [facility] Address: [address] [place] [address] Performed By: #### 5 7021-8 ####[facility]IA [id number] [place] [address] [place] Platelets (Bld) [#/Vol] 178 10*3/uL Normal 150-400 [facility] Comment on above: Order Comment: Speci men Type: BLOOD SPECIMENOrdering Facility: [facility] Address: [address] [place] [address] Performed By: #### 5 7021-8 ####[facility] [id number] [place] [address] [place] RBC (Bld) [#/Vol] 3.72 10*6/uL Low 3.90-5.20 [facility] Comment on above: Order Comment: Speci men Type: BLOOD SPECIMENOrdering Facility: [facility] Address: [address] [place] [address] Performed By: #### 5 7021-8 ####[facility] [id number] [place] [address] [place] WBC (Bld) [#/Vol] 5.52 10*3/uL Normal 3.70-11.00 [facility] Comment on above: Order Comment: Speci men Type: BLOOD SPECIMENOrdering Facility: [facility] Address: [address] [place] [address] Performed By: #### 5 7021-8 ####[facility] [id number] [place] [address] [place] CBC panel Auto (Bld)on 11-25 Erythrocyte distribution width (RBC) [Ratio] 14.5 % Normal 11.5-15.0 [facility] Comment on above: Order Comment: Speci men Type: BLOOD SPECIMENOrdering Facility: [facility] Address: [address] [place] [address] Performed By: #### 5 8410-2 ####[facility] [id number] [place] [address] [place] Hematocrit (Bld) [Volume fraction] 33.9 % Low 36.0-46.0 [facility] Comment on above: Order Comment: Speci men Type: BLOOD SPECIMENOrdering Facility: [facility] Address: [address] [place] [address] Performed By: #### 5 8410-2 ####[facility] [id number] [place] [address] [place] Hemoglobin (Bld) [Mass/Vol] 11.1 g/dL Low 11.5-15.5 [facility] Comment on above: Order Comment: Speci men Type: BLOOD SPECIMENOrdering Facility: [facility] Address: [address] [place] [address] Performed By: #### 5 8410-2 ####[facility] [id number] [place] [address] [place] MCH (RBC) [Entitic mass] 31.0 pg Normal 26.0-34.0 [facility] Comment on above: Order Comment: Speci men Type: BLOOD SPECIMENOrdering Facility: [facility] Address: [address] [place] [address] Performed By: #### 5 8410-2 ####[facility] [id number] [place] [address] [place] MCHC (RBC) [Mass/Vol] 32.7 g/dL Normal 30.5-36.0 [facility] Comment on above: Order Comment: Speci men Type: BLOOD SPECIMENOrdering Facility: [facility] Address: [address] [place] [address] Performed By: #### 5 8410-2 ####[facility] [id number] [place] [address] [place] MCV (RBC) [Entitic vol] 94.7 fL Normal 80.0-100.0 [facility] Comment on above: Order Comment: Speci men Type: BLOOD SPECIMENOrdering Facility: [facility] Address: [address] [place] [address] Performed By: #### 5 8410-2 ####[facility]IA [id number] [place] [address] [place] Nucleated RBC (Bld) [#/Vol] 10*3/uL Normal <0.01 [facility] Comment on above: Order Comment: Speci men Type: BLOOD SPECIMENOrdering Facility: [facility] Address: [address] [place] [address] Performed By: #### 5 8410-2 ####[facility] [id number] [place] [address] [place] Platelet mean volume (Bld) [Entitic vol] 11.0 fL Normal 9.0-12.7 [facility] Comment on above: Order Comment: Speci men Type: BLOOD SPECIMENOrdering Facility: [facility] Address: [address] [place] [address] Performed By: #### 5 8410-2 ####[facility] [id number] [place] [address] [place] Platelets (Bld) [#/Vol] 153 10*3/uL Normal 150-400 [facility] Comment on above: Order Comment: Speci men Type: BLOOD SPECIMENOrdering Facility: [facility] Address: [address] [place] [address] Performed By: #### 5 8410-2 ####[facility] [id number] [place] [address] [place] RBC (Bld) [#/Vol] 3.58 10*6/uL Low 3.90-5.20 [facility] Comment on above: Order Comment: Speci men Type: BLOOD SPECIMENOrdering Facility: [facility] Address: [address] [place] [address] Performed By: #### 5 8410-2 ####[facility] [id number] [place] [address] [place] WBC (Bld) [#/Vol] 4.44 10*3/uL Normal 3.70-11.00 [facility] Comment on above: Order Comment: Speci men Type: BLOOD SPECIMENOrdering Facility: [facility] Address: [address] [place] [address] Performed By: #### 5 8410-2 ####[facility] [id number] [address] [place] CONSULTon 11-26-2023 CONSULT HNO ID: [id number] Author: HARRISON ANDREWS PA-C Service: Cardiac Surgery Author Type: Physician Acid Conditioning Worker Type: Consults Filed: 11/26/2023 21:55 Note Text: CONSULT HISTORY and PHYSICAL CARDIOTHORACIC SURGERY Consulting Service: Cardiothoracic Surgery Requesting Provider: [facility], Dr Parrish. Opinion/advice regarding: Pre-Op Open Heart [...] to LAD and RCA 2020, HFpEF, MR, AR, PAF on eliquis, CKD3, [...] reported that she had presented to the [facility] with dyspnea on 11/24/2023 that was intractable. She reported that she was told by her antisqueak worker Dr. Covarrubias who recommended transfer to [facility] for expedited CABG with possible MVR. LHC [...] has intervally gone away. Currently resides in [place], [place] with Elio. Retired but used to work at [employer] but cannot get me out of my [employer] ticket. Denied smoking/street drugs/EtOH use. Able to [...] AREDS O (more content not included)... Normal [facility] Comprehensive metabolic 2000 panelon 11-26-2023 Albumin [Mass/Vol] 3.7 g/dL Low 3.9-4.9 [facility] Comment on above: Order Comment: Speci men Type: BLOOD SPECIMEN [facility] Address: [address] [place] [address] Result Comment: Resu lt rechecked. Performed By: #### 3 4528-0, PTTAC #### [facility] CLIA [id number] [address] [place] [address] [place] ALP [Catalytic activity/Vol] 85 U/L Normal 34-123 [facility] Comment on above: Order Comment: Speci men Type: BLOOD SPECIMEN [facility] Address: [address] [place] [address] Performed By: #### 3 4528-0, PTTAC #### [facility] CLIA [id number] [address] [place] [address] [place] ALT [Catalytic activity/Vol] 10 U/L Normal 7-38 [facility] Comment on above: Order Comment: Speci men Type: BLOOD SPECIMEN Ordering Facility: [facility] Address: [address] [place] [address] Performed By: #### 3 4528-0, PTTAC #### [facility] CLIA [id number] [address] [place] [address] [place] Anion gap [Moles/Vol] 11 mmol/L Normal 9-18 [facility] Comment on above: Order Comment: Speci men Type: BLOOD SPECIMEN Ordering Facility: [facility] Address: [address] [place] [address] Performed By: #### 3 4528-0, PTTAC #### [facility] CLIA [id number] [address] [place] [address] [place] [place] AST [Catalytic activity/Vol] 12 U/L Low 13-35 [facility] Comment on above: Order Comment: Speci men Type: BLOOD SPECIMEN Ordering Facility: [facility] Address: [address] [place] [address] Performed By: #### 3 4528-0, PTTAC #### [facility] CLIA [id number] [address] [place] [address] [place] Bilirubin [Mass/Vol] 0.8 mg/dL Normal 0.2-1.3 [facility] Comment on above: Order Comment: Speci men Type: BLOOD SPECIMEN Ordering Facility: [facility] Address: [address] [place] [address] Performed By: #### 3 4528-0, PTTAC #### [facility] CLIA [id number] [address] [place] [address] [place] Calcium [Mass/Vol] 9.4 mg/dL Normal 8.5-10.2 [facility] Comment on above: Order Comment: Speci men Type: BLOOD SPECIMEN Ordering Facility: [facility] Address: [address] [place] [address] Performed By: #### 3 4528-0, PTTAC #### [facility] CLIA [id number] [address] [place] [address] [place] Chloride [Moles/Vol] 105 mmol/L Normal 97-105 [facility] Comment on above: Order Comment: Speci men Type: BLOOD SPECIMEN Ordering Facility: [facility] Address: [address] [place] [address] Performed By: #### 3 4528-0, PTTAC #### [facility] CLIA [id number] [address] [place] [address] [place] CO2 [Moles/Vol] 23 mmol/L Normal 22-30 [facility] Comment on above: Order Comment: Speci men Type: BLOOD SPECIMEN Ordering Facility: [facility] Address: [address] [place] [address] Performed By: #### 3 4528-0, PTTAC #### [facility] CLIA [id number] [address] [place] [address] [place] Creatinine [Mass/Vol] 1.62 mg/dL High 0.58-0.96 [facility] Comment on above: Order Comment: Speci men Type: BLOOD SPECIMEN Ordering Facility: [facility] Address: [address] [place] [address] Performed By: #### 3 4528-0, PTTAC #### [facility] CLIA [id number] [address] [place] [address] [place] Creatinine and Glomerular filtration rate.predicted panel (S/P/Bld) 33 mL/min/1.73m??? Low >=60 [facility] Comment on above: Order Comment: Tremayne bill Type: BLOOD SPECIMEN Ordering Facility: [facility] Address: [address] [place] [address] Result Comment: Amy mated Glomerular Filtration Rate [...] Performed By: #### 3 4528-0, PTTAC #### [facility] CLIA [id number] [address] [place] [address] [place] Glucose [Mass/Vol] 100 mg/dL High 74-99 [facility] Comment on above: Order Comment: Tremayne bill Type: BLOOD SPECIMEN Ordering Facility: [facility] Address: [address] [place] [address] Result Comment: The [place] Diabetes Association (ADA) provides guidance for cutoff [...] Standards of Medical Care in Diabetes 2016, [place] [employer] Association. Diabetes Care. 2016.39(Suppl 1). Performed By: #### 3 4528-0, PTTAC #### [facility] CLIA [id number] [address] [place] [place] [address] [place] Potassium [Moles/Vol] 4.0 mmol/L Normal 3.7-5.1 [facility] Comment on above: Order Comment: Speci men Type: BLOOD SPECIMEN Ordering Facility: [facility] Address: [address] [place] [address] Performed By: #### 3 4528-0, PTTAC #### [facility] CLIA [id number] [address] [place] [address] [place] Protein [Mass/Vol] 6.0 g/dL Low 6.3-8.0 [facility] Comment on above: Order Comment: Speci men Type: BLOOD SPECIMEN Ordering Facility: [facility] Address: [address] [place] [address] Performed By: #### 3 4528-0, PTTAC #### [facility] CLIA [id number] [address] [place] [address] [place] Sodium [Moles/Vol] 139 mmol/L Normal 136-144 [facility] Comment on above: Order Comment: Speci men Type: BLOOD SPECIMEN Ordering Facility: [facility] Address: [address] [place] [address] Performed By: #### 3 4528-0, PTTAC #### [facility] CLIA [id number] [address] [place] [address] [place] Urea nitrogen [Mass/Vol] 20 mg/dL Normal 7-21 [facility] Comment on above: Order Comment: Speci men Type: BLOOD SPECIMEN Ordering Facility: [facility] Address: [address] [place] [address] Performed By: #### 3 4528-0, PTTAC #### [facility] CLIA [id number] [address] [place] [address] [place] Albumin [Mass/Vol] 5.2 g/dL High 3.9-4.9 [facility] Comment on above: Order Comment: Speci men Type: BLOOD SPECIMENOrdering Facility: [facility] Address: [address] [place] [address] Performed By: #### 5 0190-8, 6-4, 46889-5, 39205-5, 89861-6 ####[facility] [id number] [address] [address] [place] ALP [Catalytic activity/Vol] 94 U/L Normal 34-123 [facility] Comment on above: Order Comment: Speci men Type: BLOOD SPECIMENOrdering Facility: [facility] Address: [address] [place] [address] Performed By: #### 5 0190-8, 6-4, 85038-4, 58934-8, 26400-7 ####[facility] [id number] [place] [address] [place] ALT [Catalytic activity/Vol] 10 U/L Normal 7-38 [facility] Comment on above: Order Comment: Speci men Type: BLOOD SPECIMENOrdering Facility: [facility] Address: [address] [place] [address] Performed By: #### 5 0190-8, 2276-4, 34315-6, 70372-3, 99836-3 ####[facility] [id number] [place] [address] [place] Anion gap [Moles/Vol] 16 mmol/L Normal 9-18 [facility] Comment on above: Order Comment: Speci men Type: BLOOD SPECIMENOrdering Facility: [facility] Address: [address] [place] [address] Performed By: #### 5 0190-8, 6-4, 92031-6, 39443-0, 63530-2 ####[facility] [id number] [place] [id number] [place] AST [Catalytic activity/Vol] 13 U/L Normal 13-35 [facility] Comment on above: Order Comment: Speci men Type: BLOOD SPECIMENOrdering Facility: [facility] Address: [address] [place] [address] Performed By: #### 5 0190-8, 6-4, 88143-7, 24605-6, 30446-0 ####[facility] [id number] [place] [id number] [place] Bilirubin [Mass/Vol] 0.7 mg/dL Normal 0.2-1.3 [facility] Comment on above: Order Comment: Speci men Type: BLOOD SPECIMENOrdering Facility: [facility] Address: [address] [place] [address] Performed By: #### 5 0190-8, 6-4, 89630-8, 47175-8, 51583-8 ####[facility] [id number] [place] [address] [place] Calcium [Mass/Vol] 9.8 mg/dL Normal 8.5-10.2 [facility] Comment on above: Order Comment: Speci men Type: BLOOD SPECIMENOrdering Facility: [facility] Address: [address] [place] [address] Performed By: #### 5 0190-8, 6-4, 58105-5, 07871-3, 86277-7 ####[facility] [id number] [place] [id number] [place] Chloride [Moles/Vol] 100 mmol/L Normal 97-105 [facility] Comment on above: Order Comment: Speci men Type: BLOOD SPECIMENOrdering Facility: [facility] Address: [address] [place] [address] Performed By: #### 5 0190-8, 2276-4, 91377-3, 49817-2, 81881-5 ####[facility] [id number] [place] [address] [place] CO2 [Moles/Vol] 23 mmol/L Normal 22-30 [facility] Comment on above: Order Comment: Speci men Type: BLOOD SPECIMENOrdering Facility: [facility] Address: [address] [place] [address] Performed By: #### 5 0190-8, 2276-4, 77242-0, 12094-4, 45375-3 ####[facility] [id number] [place] [address] [place] Creatinine [Mass/Vol] 1.75 mg/dL High 0.58-0.96 [facility] Comment on above: Order Comment: Speci men Type: BLOOD SPECIMENOrdering Facility: [facility] Address: [address] [place] [address] Performed By: #### 5 0190-8, 2276-4, 65614-8, 92376-5, 66689-4 ####[facility] [id number] [place] [address] [place] Creatinine and Glomerular filtration rate.predicted panel (S/P/Bld) 30 mL/min/1.73m??? Low >=60 [facility] Comment on above: Order Comment: Speci men Type: BLOOD SPECIMENOrdering Facility: [facility] Address: [address] [place] [address] Result Comment: Amy mated Glomerular Filtration Rate [...] GFR. Performed By: #### 5 0190-8, 2276-4, 03060-0, 87886-7, 52268-2 ####[facility] [id number] [place] [address] [place] Glucose [Mass/Vol] 97 mg/dL Normal 74-99 [facility] Comment on above: Order Comment: Speci men Type: BLOOD SPECIMENOrdering Facility: [facility] Address: [address] [place] [address] Result Comment: The [place] Diabetes Association (ADA) provides guidance for cutoff [...] Standards of Medical Care in Diabetes 2016, [place] [employer]. Diabetes Care. 2016.39(Suppl 1). Performed By: #### 5 0190-8, 2276-4, 56899-2, 18845-8, 34429-3 ####[facility] [id number] [place] [address] [place] Potassium [Moles/Vol] 3.9 mmol/L Normal 3.7-5.1 [facility] Comment on above: Order Comment: Speci men Type: BLOOD SPECIMENOrdering Facility: [facility] Address: [address] [place] [address] Performed By: #### 5 0190-8, 2276-4, 48532-4, 28411-3, 56490-6 ####[facility] [id number] [place] [id number] [place] Protein [Mass/Vol] 6.5 g/dL Normal 6.3-8.0 [facility] Comment on above: Order Comment: Speci men Type: BLOOD SPECIMENOrdering Facility: [facility] Address: [address] [place] [address] Performed By: #### 5 0190-8, 2276-4, 84412-7, 48857-9, 44366-7 ####[facility] [id number] [address] [address] [place] Sodium [Moles/Vol] 139 mmol/L Normal 136-144 [facility] Comment on above: Order Comment: Speci men Type: BLOOD SPECIMENOrdering Facility: [facility] Address: [address] [place] [address] Performed By: #### 5 0190-8, 2276-4, 85566-8, 28508-7, 83046-7 ####[facility] [id number] [place] [id number] [place] Urea nitrogen [Mass/Vol] 20 mg/dL Normal 7-21 [facility] Comment on above: Order Comment: Speci men Type: BLOOD SPECIMENOrdering Facility: [facility] Address: [address] [place] [address] Performed By: #### 5 0190-8, 2276-4, 54152-6, 17326-3, 10570-3 ####[facility] [id number] [place] [id number] [place] ECG COMPLETEon 11-26-2023 ECG COMPLETE Ventricular Rate : 6 0 BPM Atrial Rate : 60 BPM P-R Interval : 160 ms QRS Duration : 82 ms Q-T Interval : 472 ms QTC Calculation(Bazett) : 472 ms Calculated P Waldo : 58 degrees Calculated R Waldo : 58 degrees Calculated T Waldo : 50 degrees NORMAL SINUS RHYTHM NORMAL ECG Confirmed by ANA ALVAREZ MD (22) on 11/28/2023 2:52:13 PM NAME : CECE HUBBARD PID : [id number] : 1945 Gender : Female Race : ORD : [id number] Procedure Date : Nov 26 2023 03:03:15 Edit Date : Nov 28 2023 14:54:23 Diagnosis: NORMAL SINUS RHYTHM NORMAL ECG Confirmed by ANA ALVAREZ MD (22) on 11/28/2023 2:52:13 PM Test Reason : Arrhythmia Location : 373 : J73 j73-19 Overread By : ANA ALVAREZ MD Edited By : ANA ALVAREZ MD Referred By : BECCA SILVERIO Acquired by : MARIO REESE Normal [facility] Ferritin SerPl-mCncon 2023 Ferritin [Mass/Vol] 119.0 ng/mL Normal 14.7-205.1 [facility] Comment on above: Order Comment: Speci men Type: BLOOD SPECIMENOrdering Facility: [facility] Address: [address] [place] [address] Performed By: #### 5 0190-8, 2276-4, 13972-4, 54148-5, 61593-5 ####[facility] [id number] [place] [address] [place] HISTORY PHYSICALon 4 HISTORY PHYSICAL HNO ID: [id number] Author: JOEL PARRISH MD Service: Cardiovascular Medicine Author Type: Physician Type: H&P Filed: 11/26/2023 15:18 Note Text: [facility] HISTORY AND PHYSICIAL Cece Steve Hubbard [id number] Primary Care Physician: Primary Spring Coiler Hand: Admit Source: Admit Date: 11/25/2023 LOS: 0 [...] reported that she had presented to the [facility] with dyspnea on 11/24/2023 that was intractable. She reported that she was told by her antisqueak worker Dr. Covarrubias who recommended transfer to [facility] for expedited CABG with possible MVR. LHC at OSH demonstrated 70% ISR of proximal RCA. The patient reported chronic dyspnea on exertion and difficulty completing ADLs. She reported that she is able to lie flat. Sleeps with 1 pillow at night. Said symptoms started for years but worse over the past few months. Denied weight gain, in fact has lost some. 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 Currently resides in [place], [place] with Elio. Retired but used to work at [employer] but cannot get me out of my speeding ticket. Denied smoking/street drugs/EtOH use. PAST MEDICAL [...] lipid microsphe (more content not included)... Normal [facility] Iron and Iron binding capaci ty panelon 11-26-2023 Iron [Mass/Vol] 71 ug/dL Normal 41-186 [facility] Comment on above: Order Comment: Speci men Type: BLOOD SPECIMENOrdering Facility: [facility] Address: [address] [place] [address] Performed By: #### 5 0190-8, 2276-4, 91992-6, 22377-5, 78380-3 ####[facility] [id number] [address] [address] [place] Iron binding capacity [Mass/Vol] 321 ug/dL Normal 232-386 [facility] Comment on above: Order Comment: Speci men Type: BLOOD SPECIMENOrdering Facility: [facility] Address: [address] [place] [address] Performed By: #### 5 0190-8, 2276-4, 65182-0, 97449-9, 45545-8 ####[facility] [id number] [place] [id number] [place] Iron/TIBC [Molar ratio] 22.1 % Normal 15.0-57.0 [facility] Comment on above: Order Comment: Speci men Type: BLOOD SPECIMENOrdering Facility: [facility] Address: [address] [place] [address] Performed By: #### 5 0190-8, 2276-4, 32856-0, 23273-8, 33660-4 ####[facility] [id number] [place] [id number] [place] Magnesium SerPl-mCncon 11-25 Magnesium [Mass/Vol] 2.2 mg/dL Normal 1.7-2.3 [facility] Comment on above: Order Comment: Speci men Type: BLOOD SPECIMEN [facility] Address: [address] [place] [address] Performed By: #### 3 4528-0, PTTAC #### [facility] CLIA [id number] [address] [place], [place] [address] [place] Magnesium [Mass/Vol] 2.2 mg/dL Normal 1.7-2.3 [facility] Comment on above: Order Comment: Speci men Type: BLOOD SPECIMENOrdering Facility: [facility] Address: [address] [place] [address] Performed By: #### 5 0190-8, 2276-4, 74669-8, 99141-9, 89862-9 ####[facility] [id number] [address] [place] NT-proBNP SerPl-mCncon 11-25 Natriuretic peptide.B prohormone N-Terminal [Mass/Vol] 177 pg/mL Normal <450 [facility] Comment on above: Order Comment: Speci men Type: BLOOD SPECIMENOrdering Facility: [facility] Address: [address] [place] [address] Performed By: #### 5 0190-8, 2276-4, 34248-1, 61968-5, 44732-0 ####[facility] [id number] [address] [place] NUTRITIONon 11-26-2023 NUTRITION HNO ID: [id number] Author: REBEKA GARCIA RD Service: Nutrition Therapy Author Type: Registered Dietitian Type: Nutrition Filed: 11/26/2023 14:50 Note Text: NUTRITION THERAPY INITIAL ASSESSMENT SERVICE DATE: 11/26/2023 SERVICE TIME: 1:05 PM Nutrition Assessment: Recommended Malnutrition Diagnosis: No Malnutrition Identified Nutrition Diagnosis: Problem: Suboptimal oral intake Related to: Inability to consume sufficient nutrients As evidenced by: Nausea, Food/nutrition related history, Patient/family self-report, Anorexia Estimated kilocalorie needs: 4837-0372 Calorie Calculation Method: 25-30 kcals/kg, Mcintosh Body Weight Estimated protein needs (grams): 65-82 Grams protein determined by: 1.2 - 1.5 g/kg, Mcintosh body weight Care Plan: Continue current diet [...] Billing: $ Initial Assessment: 1-15 minutes SIGNATURE: Rebeka Garcia RD PATIENT NAME: Cece Hubbard DATE: November 26, 2023 TIME: 2:43 PM Normal [facility] PT panel Coag (PPP)on 2023 INR Coag (PPP) [Relative time] 1.1 {INR} Normal 0.9-1.3 [facility] Comment on above: Order Comment: Speci men Type: BLOOD SPECIMEN [facility] Address: [address] [place], [place] [address] Result Comment: Janeth min K Antagonist (VKA) Therapeutic Range: INR 2 to 3 (Target INR of 2.5) Note: For patients treated with VKA drugs, such as warfarin, the [place] [employer] 2012 Guideline recommends [...] Chest 2012, 141:7S-47S Mary RA, et al. [facility] 2017, 70: 252-289 Performed By: #### 3 4528-0, PTTAC #### [facility] CLIA [id number] [address] [place] [address] [place] PT Coag (PPP) [Time] 11.4 s Normal 9.7-13.0 [facility] Comment on above: Order Comment: Tremayne bill Type: BLOOD SPECIMEN [facility] Address: [address] [place] [address] Performed By: #### 3 4528-0, PTTAC #### [facility] CLIA [id number] [address] [place] [address] [place] INR Coag (PPP) [Relative time] 1.1 {INR} Normal 0.9-1.3 [facility] Comment on above: Order Comment: Tremayne bill Type: BLOOD SPECIMENOrdering Facility: [facility] Address: [address] [place] [address] Result Comment: Janeth min K Antagonist (VKA) Therapeutic Range: INR 2 to 3 (Target INR of 2.5) Note: For patients treated with VKA drugs, such as warfarin, the [place] [employer] 2012 Guideline recommends [...] Chest 2012, 141:7S-47S Mary RA, et al. [facility] 2017, 70: 252-289 Performed By: #### 3 4528-0, 01189-2 ####[facility] [id number] [place] [address] [place] PT Coag (PPP) [Time] 11.7 s Normal 9.7-13.0 [facility] Comment on above: Order Comment: Speci fly Type: BLOOD SPECIMENOrdering Facility: [facility] Address: [address] [place] [address] Performed By: #### 3 4528-0, 84081-7 ####[facility] [id number] [place] [address] [place] PTT, ANTICOAGULANT THERAPYon 11-26-2023 aPTT Coag (PPP) [Time] 61.1 s High 23.0-32.4 [facility] Comment on above: Order Comment: Zaki fly Type: BLOOD SPECIMENOrdering Facility: [facility] Address: [address] [place] [address] Performed By: #### P TTAC ####[facility] [id number] [place] [address] [place] aPTT Coag (PPP) [Time] 36.4 s High 23.0-32.4 [facility] Comment on above: Order Comment: Tremayne bill Type: BLOOD SPECIMEN [facility] Address: [address] [place] [address] Result Comment: Inte rpret with caution. Sample centrifuged greater than 1 hour from collection time. According to Clinical and Laboratory Standards [place] guidelines, results could be falsely decreased due to heparin neutralization by in vitro release of platelet factor 4. Suggest correlation with clinical findings and redraw if indicated. Performed By: #### 3 4528-0, PTTAC #### [facility] CLIA [id number] [address] [place] [address] [place] aPTT Coag (PPP) [Time] 66.6 s High 23.0-32.4 [facility] Comment on above: Order Comment: Speci men Type: BLOOD SPECIMEN [facility] Address: [address] [place] [address] Performed By: #### 3 4528-0, PTTAC #### [facility] [place] [id number] [address] [place] [address] [place] aPTT Coag (PPP) [Time] 49.0 s High 23.0-32.4 [facility] Comment on above: Order Comment: Speci men Type: BLOOD SPECIMEN [facility] Address: [address] [place] [address] Performed By: #### 3 4528-0, PTTAC #### [facility] IA [id number] [address] [place] [address] [place] THERAPY NTon 11-26-2023 THERAPY NT HNO ID: [id number] Author: ALAN MEZA, PT, DPT Service: Physical Therapy Author Type: Physical Therapist Type: Therapy (PT/OT/Speech/Resp) Filed: 11/26/2023 08:17 Note Text: PHYSICAL THERAPY COMMUNICATION SERVICE DATE: 11/26/2023 ROOM: [place] [address] Physical therapy consult received. Chart reviewed. No [...] November 26, 2023 TIME: 8:17 AM Normal [facility] THERAPY NT HNO ID: [id number] Author: ALAN MEZA, PT, DPT Service: Occupational Therapy Author Type: Physical Therapist Type: Therapy (PT/OT/Speech/Resp) Filed: 11/26/2023 08:17 Note Text: THERAPY COMMUNICATION SERVICE DATE: 11/26/2023 ROOM: [place] [address] Occupational therapy consult received. Chart reviewed. No [...] November 26, 2023 TIME: 8:17 AM Normal [facility] TOXICOLOGY SCREEN, ROUTINE U RINEon 11-26-2023 Amphetamines Confirm (U) [Mass/Vol] Negative Normal Negative [facility] Comment on above: Order Comment: Speci men Type: URINE SPECIMENOrdering Facility: [facility] Address: [address] [place] [address] Result Comment: Cuto ff threshold at 1000 ng/mL. Performed By: #### U TOX2 ####[facility] [id number] [place] [address] [place] BARBITURATES, URINE Negative Normal Negative [facility] Comment on above: Order Comment: Speci men Type: URINE SPECIMENOrdering Facility: [facility] Address: [address] [place] [address] Result Comment: Cuto ff threshold at 200 ng/mL. Performed By: #### U TOX2 ####[facility] [id number] [place] [address] [place] BENZODIAZEPINES, UR Negative Normal Negative [facility] Comment on above: Order Comment: Speci men Type: URINE SPECIMENOrdering Facility: [facility] Address: [address] [place] [address] Result Comment: Cuto ff threshold at 200 ng/mL. Performed By: #### U TOX2 ####[facility] [id number] [place] [address] [place] Cannabinoids Screen Ql (U) Negative Normal Negative [facility] Comment on above: Order Comment: Speci men Type: URINE SPECIMENOrdering Facility: [facility] Address: [address] [place] [address] Result Comment: Cuto ff threshold at 50 ng/mL. Performed By: #### U TOX2 ####[facility] [id number] [place] [address] [place] Cocaine Ql (U) Negative Normal Negative [facility] Comment on above: Order Comment: Speci men Type: URINE SPECIMENOrdering Facility: [facility] Address: [address] [place] [address] Result Comment: Cuto ff threshold at 300 ng/mL. Performed By: #### U TOX2 ####[facility] [id number] [place] [address] [place] Ethanol (U) [Mass/Vol] <11 Normal <11 [facility] Comment on above: Order Comment: Speci men Type: URINE SPECIMENOrdering Facility: [facility] Address: [address] [place] [address] Performed By: #### U TOX2 ####[facility] [id number] [place] [address] [place] Opiates Screen Ql (U) Negative Normal Negative [facility] [facility] Comment on above: Order Comment: Speci men Type: URINE SPECIMENOrdering Facility: [facility] Address: [address] [place] [address] Result Comment: Cuto ff threshold at 300 ng/mL. Performed By: #### U TOX2 ####[facility] [id number] [place] [address] [place] oxyCODONE cutoff Screen (U) [Mass/Vol] Negative Normal Negative [facility] Comment on above: Order Comment: Speci men Type: URINE SPECIMENOrdering Facility: [facility] Address: [address] [place] [address] Result Comment: Cuto ff threshold at 100 ng/mL. Performed By: #### U TOX2 ####[facility] [id number] [place] [address] [place] Phencyclidine Ql (U) Negative Normal Negative [facility] Comment on above: Order Comment: Speci men Type: URINE SPECIMENOrdering Facility: [facility] Address: [address] [place] [address] Result Comment: Cuto ff threshold at 25 ng/mL. Performed By: #### U TOX2 ####[facility] [id number] [place] [address] [place] TYPE + SCREENon 11-26-2023 ABO O Normal [facility] Comment on above: Order Comment: Speci men Type: BLOOD SPECIMENOrdering Facility: [facility] Address: [address] [place] [address] Performed By: #### T SCR ####[facility] BLOOD BANKIA [id number] [place] [address] [place] HISTORICAL AB SCR STATUS Negative Normal [facility] Comment on above: Order Comment: Speci men Type: BLOOD SPECIMENOrdering Facility: [facility] Address: [address] [place] [address] Performed By: #### T SCR ####[facility] BLOOD BANKIA [id number] [place] [address] [place] Rh Nom (Bld) Negative Normal [facility] Comment on above: Order Comment: Speci men Type: BLOOD SPECIMENOrdering Facility: [facility] Address: [address] [place] [address] Performed By: #### T SCR ####[facility] BLOOD BANKCLIA [id number] [place] [address] [place] TYPE AND SCREEN EXPIRATION 11/29/2023 23:59 Normal [facility] Comment on above: Order Comment: Speci men Type: BLOOD SPECIMENOrdering Facility: [facility] Address: [address] [place] [address] Performed By: #### T SCR ####[facility] BLOOD BANKCLIA [id number] [place] [address] [place] URINALYSIS, DIPSTICK ONLYon 11-26-2023 Bilirubin Ql (U) Negative Normal Negative [facility] Comment on above: Order Comment: Speci men Type: BLOOD SPECIMEN [facility] Address: [address] [place] [address] Performed By: #### 3 4528-0, PTTAC #### [facility] CLIA [id number] [address] [place] [address] [place] Clarity (Unsp spec) Clear Normal Clear [facility] Comment on above: Order Comment: Speci men Type: BLOOD SPECIMEN [facility] Address: [address] [place] [address] Performed By: #### 3 4528-0, PTTAC #### [facility] CLIA [id number] [address] [place] [address] [place] Color (U) Yellow Normal Yellow [facility] Comment on above: Order Comment: Speci men Type: BLOOD SPECIMEN [facility] Address: [address] [place] [address] Performed By: #### 3 4528-0, PTTAC #### [facility] CLIA [id number] [address] [place] [address] [place] Glucose Test strip (U) [Mass/Vol] Negative Normal Negative [facility] Comment on above: Order Comment: Speci men Type: BLOOD SPECIMEN [facility] Address: [address] [place] [address] Performed By: #### 3 4528-0, PTTAC #### [facility] CLIA [id number] [address] [place] [address] [place] Hemoglobin Ql (U) Negative Normal Negative [facility] Comment on above: Order Comment: Speci men Type: BLOOD SPECIMEN [facility] Address: [address] [place] [address] Performed By: #### 3 4528-0, PTTAC #### [facility] CLIA [id number] [address] [place] [address] [place] Ketones Ql (U) Negative Normal Negative [facility] Comment on above: Order Comment: Speci men Type: BLOOD SPECIMEN [facility] Address: [address] [place] [address] Performed By: #### 3 4528-0, PTTAC #### [facility] CLIA [id number] [address] [place] [address] [place] Leukocyte esterase Test strip Ql (U) 2+ Abnormal Negative [facility] Comment on above: Order Comment: Speci men Type: BLOOD SPECIMEN [facility] Address: [address] [place] [address] Performed By: #### 3 4528-0, PTTAC #### [facility] CLIA [id number] [address] [place] [address] [place] Nitrite Ql (U) Negative Normal Negative [facility] Comment on above: Order Comment: Speci men Type: BLOOD SPECIMEN [facility] Address: [address] [place] [address] Performed By: #### 3 4528-0, PTTAC #### [facility] CLIA [id number] [address] [place] [address] [place] pH (U) 6.0 [pH] Normal <8.5 [facility] Comment on above: Order Comment: Speci men Type: BLOOD SPECIMEN [facility] Address: [address] [place] [address] Performed By: #### 3 4528-0, PTTAC #### [facility] CLIA [id number] [address] [place] [address] [place] Protein (U) [Mass/Vol] Negative Normal Negative [facility] Comment on above: Order Comment: Speci men Type: BLOOD SPECIMEN [facility] Address: [address] [place] [address] Performed By: #### 3 4528-0, PTTAC #### [facility] CLIA [id number] [address] [place] [address] [place] Specific gravity (U) [Rel density] 1.010 Normal 1.005-1.03 0 [facility] Comment on above: Order Comment: Speci men Type: BLOOD SPECIMEN [facility] Address: [address] [place] [address] Performed By: #### 3 4528-0, PTTAC #### [facility] CLIA [id number] [address] [place] [address] [place] Urobilinogen Ql (U) 0.2 EU/dL Normal 0.2-1.0 EU/dL [facility] Comment on above: Order Comment: Speci men Type: BLOOD SPECIMEN [facility] Address: [address] [place] [address] Performed By: #### 3 4528-0, PTTAC #### [facility] CLIA [id number] [address] [place] [id number] [place] US GROIN UN[facility] VAS LABon 11-25 [facility] Non-Invasive Vascul ar Laboratory [facility] J35 Lower Extremity Arterial Duplex for Pseudoaneurysm [...] JOEL PARRISH Interpreting physician: Kait Arciniega MD, PALAK Final [facility] : [id number] See Link below for Image Normal [facility] XR CHEST 1V FRONTAL PORTon 0 11-26-2023 [...] mild PVH. Other: . IMPRESSION: See result. Pharmacy Account Director: SCOTT Transcribe Date/Time: Nov 26 2023 3:20P Dictated by : NICOLA FRANKLIN MD This examination was interpreted and the report reviewed and electronically signed by: NICOLA FRANKLIN MD on Nov 26 2023 3:21PM EST [id number] Normal [facility] aPTT PPPon 11-26-2023 aPTT Coag (PPP) [Time] 44.4 s High 23.0-32.4 Cl [facility] Comment on above: Order Comment: Speci men Type: BLOOD SPECIMENOrdering Facility: [facility] Address: [address] [place], [place] [address] Performed By: #### 3 4528-0, 78854-6 ####[facility] [id number] [place] [address] [id number] [place] Basic metabolic 2000 panelon 11-25-2023 Anion gap [Moles/Vol] 12 mmol/L Normal 9-18 [facility] Comment on above: Order Comment: Speci men Type: BLOOD SPECIMEN [facility] Address: [address] [place] [address] Performed By: #### 2 4321-2 #### [facility] CLIA [id number] [address] [place] [address] [place] Calcium [Mass/Vol] 9.7 mg/dL Normal 8.5-10.2 [facility] Comment on above: Order Comment: Speci men Type: BLOOD SPECIMEN [facility] Address: [address] [place] [address] Performed By: #### 2 4321-2 #### [facility] CLIA [id number] [address] [place] [address] [place] Chloride [Moles/Vol] 102 mmol/L Normal 97-105 [facility] Comment on above: Order Comment: Speci men Type: BLOOD SPECIMEN [facility] Address: [address] [place] [address] Performed By: #### 2 4321-2 #### [facility] CLIA [id number] [address] [place] [address] [place] CO2 [Moles/Vol] 23 mmol/L Normal 22-30 [facility] Comment on above: Order Comment: Speci men Type: BLOOD SPECIMEN [facility] Address: [address] [place] [address] Performed By: #### 2 4321-2 #### [facility] CLIA [id number] [address] [place] [address] [place] Creatinine [Mass/Vol] 1.67 mg/dL High 0.58-0.96 [facility] Comment on above: Order Comment: Speci men Type: BLOOD SPECIMEN [facility] Address: [address] [place] [address] Performed By: #### 2 4321-2 #### [facility] CLIA [id number] [address] [place] [address] [place] Creatinine and Glomerular filtration rate.predicted panel (S/P/Bld) 31 mL/min/1.73m??? Low >=60 [facility] Comment on above: Order Comment: Tremayne bill Type: BLOOD SPECIMEN [facility] Address: [address] [place] [address] Result Comment: Amy mated Glomerular Filtration Rate [...] GFR. Performed By: #### 2 4321-2 #### [facility] CLIA [id number] [place] [address] [place] Glucose [Mass/Vol] 108 mg/dL High 74-99 [facility] Comment on above: Order Comment: Tremayne bill Type: BLOOD SPECIMEN [facility] Address: [address] [place] [address] Result Comment: The [place] [employer] (ADA) provides guidance for cutoff [...] Standards of Medical Care in Diabetes 2016, [place] [employer]. Diabetes Care. 2016.39(Suppl 1). Performed By: #### 2 4321-2 #### [facility] CLIA [id number] [address] [place] [address] [place] Potassium [Moles/Vol] 4.4 mmol/L Normal 3.7-5.1 [facility] Comment on above: Order Comment: Speci men Type: BLOOD SPECIMEN [facility] Address: [address] [place] [address] Performed By: #### 2 4321-2 #### [facility] CLIA [id number] [address] [place] [address] [place] Sodium [Moles/Vol] 137 mmol/L Normal 136-144 [facility] Comment on above: Order Comment: Speci men Type: BLOOD SPECIMEN [facility] Address: [address] [place] [address] Performed By: #### 2 4321-2 #### [facility] CLIA [id number] [address] [place] [address] [place] Urea nitrogen [Mass/Vol] 18 mg/dL Normal 7-21 [facility] Comment on above: Order Comment: Speci men Type: BLOOD SPECIMEN [facility] Address: [address] [place] [address] Performed By: #### 2 4321-2 #### [facility] CLIA [id number] [address] [place] [address] [place] CBC panel Auto (Bld)on 11-24 Erythrocyte distribution width (RBC) [Ratio] 14.3 % Normal 11.5-15.0 [facility] Comment on above: Order Comment: Speci men Type: BLOOD SPECIMEN [facility] Address: [address] [place] [address] Performed By: #### 5 7021-8 #### [facility] CLIA [id number] [address] [place] [address] [place] Hematocrit (Bld) [Volume fraction] 39.3 % Normal 36.0-46.0 [facility] Comment on above: Order Comment: Speci men Type: BLOOD SPECIMEN [facility] Address: [address] [place] [address] Performed By: #### 5 7021-8 #### [facility] CLIA [id number] [address] [place] [address] [place] Hemoglobin (Bld) [Mass/Vol] 12.8 g/dL Normal 11.5-15.5 [facility] Comment on above: Order Comment: Speci men Type: BLOOD SPECIMEN [facility] Address: [address] [place] [address] Performed By: #### 5 7021-8 #### [facility] CLIA [id number] [address] [place] [address] [place] MCH (RBC) [Entitic mass] 31.1 pg Normal 26.0-34.0 [facility] Comment on above: Order Comment: Speci men Type: BLOOD SPECIMEN [facility] Address: [address] [place] [address] Performed By: #### 5 7021-8 #### [facility] CLIA [id number] [address] [place] [address] [place] MCHC (RBC) [Mass/Vol] 32.6 g/dL Normal 30.5-36.0 [facility] Comment on above: Order Comment: Speci men Type: BLOOD SPECIMEN [facility] Address: [address] [place] [address] Performed By: #### 5 7021-8 #### [facility] CLIA [id number] [address] [place] [address] [place] MCV (RBC) [Entitic vol] 95.6 fL Normal 80.0-100.0 [facility] Comment on above: Order Comment: Speci men Type: BLOOD SPECIMEN [facility] Address: [address] [place] [address] Performed By: #### 5 7021-8 #### [facility] CLIA [id number] [address] [place] [address] [place] Nucleated RBC (Bld) [#/Vol] 10*3/uL Normal <0.01 [facility] Comment on above: Order Comment: Speci men Type: BLOOD SPECIMEN [facility] Address: [address] [place] [address] Performed By: #### 5 7021-8 #### [facility] CLIA [id number] [place] [address] [place] Platelet mean volume (Bld) [Entitic vol] 11.0 fL Normal 9.0-12.7 [facility] Comment on above: Order Comment: Speci men Type: BLOOD SPECIMEN [facility] Address: [address] [place] [address] Performed By: #### 5 7021-8 #### [facility] CLIA [id number] [address] [place] [address] [place] Platelets (Bld) [#/Vol] 215 10*3/uL Normal 150-400 [facility] Comment on above: Order Comment: Speci men Type: BLOOD SPECIMEN [facility] Address: [address] [place] [address] Performed By: #### 5 7021-8 #### [facility] CLIA [id number] [address] [place] [address] [place] RBC (Bld) [#/Vol] 4.11 10*6/uL Normal 3.90-5.20 [facility] Comment on above: Order Comment: Speci men Type: BLOOD SPECIMEN [facility] Address: [address] [place] [address] Performed By: #### 5 7021-8 #### [facility] CLIA [id number] [address] [place] [address] [place] WBC (Bld) [#/Vol] 5.54 10*3/uL Normal 3.70-11.00 [facility] Comment on above: Order Comment: Speci men Type: BLOOD SPECIMEN [facility] Address: [address] [place] [address] Performed By: #### 5 7021-8 #### [facility] CLIA [id number] [address] [place] [address] [place] HIGH SENSITIVITY TROPONIN To n 11-25-2023 Troponin T.cardiac High sensitivity method [Mass/Vol] 21 ng/L High <12 [facility] Comment on above: Order Comment: Speci men Type: BLOOD SPECIMEN [facility] Address: [address], [place] [address] Result Comment: When assessing risk for acute [...] MACE. Performed By: #### 5 7021-8 #### [facility] CLIA [id number] [address] [place] [address] [place] HISTORY PHYSICALon HISTORY PHYSICAL HNO ID: [id number] Author: LATRELL COOPER MD Service: General Internal [...] HOLLY. 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 Normal [facility] NURSING PROGon 11-25-2023 NURSING PROG HNO ID: [id number] Author: FLORENCIO COYLE RN Service: Nursing Author Type: Registered Nurse Type: Nursing Progress Note Filed: 11/25/2023 19:49 Note Text: Other: Report called to Natalee at [facility] Main campus floor J[address]. Natalee made aware pt.scheduled to be picked up at 7:30 p.m tonight by [facility] and that pt still has Heparin drip infusing.Pt also made aware of pick-up time. Normal [facility] NURSING PROG HNO ID: [id number] Author: FLORENCIO COYLE, VIKTOR Service: Nursing Author Type: Registered Nurse Type: Nursing Progress Note Filed: 11/25/2023 17:41 Note Text: Other: Dr Cooper made aware that pt has a bed available at [facility] [place] building [address] bed 19 as per transfer center.Pt also made aware Normal [facility] PT panel Coag (PPP)on 2023 INR Coag (PPP) [Relative time] 1.0 {INR} Normal 0.9-1.3 [facility] Comment on above: Order Comment: Tremayne bill Type: BLOOD SPECIMEN [facility] Address: [address] [place] [address] Result Comment: Janeth min K Antagonist (VKA) Therapeutic Range: INR 2 to 3 (Target INR of 2.5) Note: For patients treated with VKA drugs, such as warfarin, the [place] [employer] 2012 Guideline recommends [...] Chest 2012, 141:7S-47S Mary RA, et al. [facility] 2017, 70: 252-289 Performed By: #### L LW2622, 57448-9, 40901-3, 04627-6 #### [facility] CLIA [id number] [address] [place] [address] [place] PT Coag (PPP) [Time] 11.6 s Normal 9.7-13.0 [facility] Comment on above: Order Comment: Tremayne bill Type: BLOOD SPECIMEN [facility] Address: [address] [place] [address] Performed By: #### L NS4550, 35911-9, 23652-2, 58853-4 #### [facility] CLIA [id number] [place] PTT, ANTICOAGULANT THERAPYon 11-25-2023 aPTT Coag (PPP) [Time] 64.4 s High 23.0-32.4 [facility] Comment on above: Order Comment: Speci men Type: BLOOD SPECIMEN [facility] Address: [address] [place] [address] Performed By: #### 5 7021-8 #### [facility] CLIA [id number] [address] [place] [address] aPTT Coag (PPP) [Time] 86.0 s High 23.0-32.4 [facility] Comment on above: Order Comment: Speci men Type: BLOOD SPECIMENOrdering Facility: [facility] Address: [address] [place] [address] Performed By: #### P TTA ####[facility] [id number] [address] aPTT Coag (PPP) [Time] 39.5 s High 23.0-32.4 [facility] Comment on above: Order Comment: Speci men Type: BLOOD SPECIMEN [facility] Address: [address] [place] [address] Performed By: #### L HP5555, 31755-9, 27890-7, 58889-8 #### [facility] CLIA [id number] [address] [place] [address] ALLIED HEALTHon 11-24-2023 ALLIED HEALTH HNO ID: [id number] Author: YAS DRAKE RT(R) Service: Radiology Author Type: Technologist Type: [...] PATIENT PRESENTS WITH AN IMPLANTABLE OR ATTACHED WEB OPERATIONS SPECIALIST: No RADIOLOGY DEPARTMENT: General X-ray: Exam(s) Completed: Chest X-Ray PERIPHERAL IV DATA: Not applicable SIGNED BY: Yas Drake RT(R) November 24, 2023 1:29 PM Normal [facility] CBC W Auto Differential pane l (Bld)on 11-24-2023 Basophils (Bld) [#/Vol] 0.06 10*3/uL Normal <0.11 [facility] Comment on above: Order Comment: Speci men Type: BLOOD SPECIMEN [facility] Address: [address] [place] [address] Performed By: #### 5 7021-8 #### [facility] CLIA [id number] [address] [place] [address] [place] Basophils/100 WBC (Bld) 0.9 % Normal [facility] Comment on above: Order Comment: Speci men Type: BLOOD SPECIMEN [facility] Address: [address] [place] [address] Performed By: #### 5 7021-8 #### [facility] CLIA [id number] [address] [place] [address] [place] Differential cell count method Nom (Bld) Auto Normal [facility] Comment on above: Order Comment: Speci men Type: BLOOD SPECIMEN [facility] Address: [address] [place] [address] Performed By: #### 5 7021-8 #### [facility] CLIA [id number] [address] [place] [address] [place] Eosinophils (Bld) [#/Vol] 0.06 10*3/uL Normal <0.46 [facility] Comment on above: Order Comment: Speci men Type: BLOOD SPECIMEN [facility] Address: [address] [place] [address] Performed By: #### 5 7021-8 #### [facility] CLIA [id number] [address] [place] [address] [place] Eosinophils/100 WBC (Bld) 0.9 % Normal [facility] Comment on above: Order Comment: Speci men Type: BLOOD SPECIMEN [facility] Address: [address] [place] [address] Performed By: #### 5 7021-8 #### [facility] CLIA [id number] [address] [place] [address] [place] Erythrocyte distribution width (RBC) [Ratio] 14.5 % Normal 11.5-15.0 [facility] Comment on above: Order Comment: Speci men Type: BLOOD SPECIMEN [facility] Address: [address] [place] [address] Performed By: #### 5 7021-8 #### [facility] CLIA [id number] [address] [place] [address] [place] Hematocrit (Bld) [Volume fraction] 39.2 % Normal 36.0-46.0 [facility] Comment on above: Order Comment: Speci men Type: BLOOD SPECIMEN [facility] Address: [address] [place] [address] Performed By: #### 5 7021-8 #### [facility] CLIA [id number] [address] [place] [address] [place] Hemoglobin (Bld) [Mass/Vol] 12.9 g/dL Normal 11.5-15.5 [facility] Comment on above: Order Comment: Speci men Type: BLOOD SPECIMEN [facility] Address: [address] [place] [address] Performed By: #### 5 7021-8 #### [facility] CLIA [id number] [address] [place] [address] [place] Immature granulocytes (Bld) [#/Vol] 10*3/uL Normal <0.10 [facility] Comment on above: Order Comment: Speci men Type: BLOOD SPECIMEN [facility] Address: [address] [place] [address] Performed By: #### 5 7021-8 #### [facility] CLIA [id number] [address] [place] [address] [place] Immature granulocytes/100 WBC (Bld) 0.3 % Normal [facility] Comment on above: Order Comment: Speci men Type: BLOOD SPECIMEN [facility] Address: [address] [place] [address] Performed By: #### 5 7021-8 #### [facility] CLIA [id number] [address] [place] [address] [place] Lymphocytes (Bld) [#/Vol] 1.19 10*3/uL Normal 1.00-4.00 [facility] Comment on above: Order Comment: Speci men Type: BLOOD SPECIMEN Ordering Facility: [facility] Address: [address] [place] [address] Performed By: #### 5 7021-8 #### [facility] CLIA [id number] [address] [place] [address] [place] Lymphocytes/100 WBC (Bld) 18.5 % Normal [facility] Comment on above: Order Comment: Speci men Type: BLOOD SPECIMEN Ordering Facility: [facility] Address: [address] [place] [address] Performed By: #### 5 7021-8 #### [facility] CLIA [id number] [address] [place] [address] [place] MCH (RBC) [Entitic mass] 31.6 pg Normal 26.0-34.0 [facility] Comment on above: Order Comment: Speci men Type: BLOOD SPECIMEN Ordering Facility: [facility] Address: [address] [place] [address] Performed By: #### 5 7021-8 #### [facility] CLIA [id number] [address] [place] [address] [place] MCHC (RBC) [Mass/Vol] 32.9 g/dL Normal 30.5-36.0 [facility] Comment on above: Order Comment: Speci men Type: BLOOD SPECIMEN Ordering Facility: [facility] Address: [address] [place] [address] Performed By: #### 5 7021-8 #### [facility] CLIA [id number] [address] [place] [address] [place] MCV (RBC) [Entitic vol] 96.1 fL Normal 80.0-100.0 [facility] Comment on above: Order Comment: Speci men Type: BLOOD SPECIMEN Ordering Facility: [facility] Address: [address] [place] [address] Performed By: #### 5 7021-8 #### [facility] CLIA [id number] [address] [place] [address] [place] Monocytes (Bld) [#/Vol] 0.65 10*3/uL Normal <0.87 [facility] Comment on above: Order Comment: Speci men Type: BLOOD SPECIMEN Ordering Facility: [facility] Address: [address] [place] [address] Performed By: #### 5 7021-8 #### [facility] CLIA [id number] [address] [place] [address] [place] Monocytes/100 WBC (Bld) 10.1 % Normal [facility] Comment on above: Order Comment: Speci men Type: BLOOD SPECIMEN Ordering Facility: [facility] Address: [address] [place] [address] Performed By: #### 5 7021-8 #### [facility] CLIA [id number] [address] [place] [address] [place] Neutrophils (Bld) [#/Vol] 4.44 10*3/uL Normal 1.45-7.50 [facility] Comment on above: Order Comment: Speci men Type: BLOOD SPECIMEN Ordering Facility: [facility] Address: [address] [place] [address] Performed By: #### 5 7021-8 #### [facility] CLIA [id number] [address] [place] [address] [place] Neutrophils/100 WBC (Bld) 69.3 % Normal [facility] Comment on above: Order Comment: Speci men Type: BLOOD SPECIMEN Ordering Facility: [facility] Address: [address] [place] [address] Performed By: #### 5 7021-8 #### [facility] CLIA [id number] [address] [place] [address] [place] Nucleated RBC (Bld) [#/Vol] 10*3/uL Normal <0.01 [facility] Comment on above: Order Comment: Speci men Type: BLOOD SPECIMEN Ordering Facility: [facility] Address: [address] [place] [address] Performed By: #### 5 7021-8 #### [facility] CLIA [id number] [address] [place] [address] [place] Nucleated RBC/100 WBC (Bld) [Ratio] 0.0 /100 WBC Normal [facility] Comment on above: Order Comment: Speci men Type: BLOOD SPECIMEN Ordering Facility: [facility] Address: [address] [place] [address] Performed By: #### 5 7021-8 #### [facility] CLIA [id number] [address] [place] [address] [place] Platelet mean volume (Bld) [Entitic vol] 11.3 fL Normal 9.0-12.7 [facility] Comment on above: Order Comment: Speci men Type: BLOOD SPECIMEN Ordering Facility: [facility] Address: [address] [place] [address] Performed By: #### 5 7021-8 #### [facility] CLIA [id number] [address] [place] [address] [place] Platelets (Bld) [#/Vol] 241 10*3/uL Normal 150-400 [facility] Comment on above: Order Comment: Speci men Type: BLOOD SPECIMEN Ordering Facility: [facility] Address: [address] [place] [address] Performed By: #### 5 7021-8 #### [facility] CLIA [id number] [address] [place] [address] [place] RBC (Bld) [#/Vol] 4.08 10*6/uL Normal 3.90-5.20 [facility] Comment on above: Order Comment: Speci men Type: BLOOD SPECIMEN Ordering Facility: [facility] Address: [address] [place] [address] Performed By: #### 5 7021-8 #### [facility] CLIA [id number] [address] [place] [address] [place] WBC (Bld) [#/Vol] 6.42 10*3/uL Normal 3.70-11.00 [facility] Comment on above: Order Comment: Speci men Type: BLOOD SPECIMEN Ordering Facility: [facility] Address: [address] [place] [address] Performed By: #### 5 7021-8 #### [facility] CLIA [id number] [address] [place] [address] [place] [facility] [place] Comprehensive metabolic 2000 panelon 11-24-2023 Albumin [Mass/Vol] 4.4 g/dL Normal 3.9-4.9 [facility] Comment on above: Order Comment: Speci men Type: BLOOD SPECIMEN Ordering Facility: [facility] Address: [address] [place] [address] Performed By: #### 5 7021-8 #### [facility] CLIA [id number] [address] [place] [address] [place] ALP [Catalytic activity/Vol] 103 U/L Normal 34-123 [facility] Comment on above: Order Comment: Speci men Type: BLOOD SPECIMEN Ordering Facility: [facility] Address: [address] [place] [address] Performed By: #### 5 7021-8 #### [facility] CLIA [id number] [address] [place] [address] [place] ALT [Catalytic activity/Vol] 13 U/L Normal 7-38 [facility] Comment on above: Order Comment: Speci men Type: BLOOD SPECIMEN Ordering Facility: [facility] Address: [address] [place] [address] Performed By: #### 5 7021-8 #### [facility] CLIA [id number] [address] [place] [address] [place] Anion gap [Moles/Vol] 12 mmol/L Normal 9-18 [facility] Comment on above: Order Comment: Speci men Type: BLOOD SPECIMEN Ordering Facility: [facility] Address: [address] [place] [address] Performed By: #### 5 7021-8 #### [facility] CLIA [id number] [address] [place] [address] [place] AST [Catalytic activity/Vol] 14 U/L Normal 13-35 [facility] Comment on above: Order Comment: Speci men Type: BLOOD SPECIMEN Ordering Facility: [facility] Address: [address] [place] [address] Performed By: #### 5 7021-8 #### [facility] CLIA [id number] [address] [place] [address] [place] Bilirubin [Mass/Vol] 1.2 mg/dL Normal 0.2-1.3 [facility] Comment on above: Order Comment: Speci men Type: BLOOD SPECIMEN Ordering Facility: [facility] Address: [address] [place] [address] Performed By: #### 5 7021-8 #### [facility] CLIA [id number] [address] [place] [address] [place] Calcium [Mass/Vol] 10.0 mg/dL Normal 8.5-10.2 [facility] Comment on above: Order Comment: Speci men Type: BLOOD SPECIMEN Ordering Facility: [facility] Address: [address] [place] [address] Performed By: #### 5 7021-8 #### [facility] CLIA [id number] [address] [place] [address] [place] Chloride [Moles/Vol] 100 mmol/L Normal 97-105 [facility] Comment on above: Order Comment: Speci men Type: BLOOD SPECIMEN Ordering Facility: [facility] Address: [address] [place] [address] Performed By: #### 5 7021-8 #### [facility] CLIA [id number] [address] [place] [address] [place] CO2 [Moles/Vol] 27 mmol/L Normal 22-30 [facility] Comment on above: Order Comment: Speci men Type: BLOOD SPECIMEN Ordering Facility: [facility] Address: [address] [place] [address] Performed By: #### 5 7021-8 #### [facility] CLIA [id number] [address] [place] [address] [place] Creatinine [Mass/Vol] 1.57 mg/dL High 0.58-0.96 [facility] Comment on above: Order Comment: Speci men Type: BLOOD SPECIMEN Ordering Facility: [facility] Address: [address] [place] [address] Performed By: #### 5 7021-8 #### [facility] CLIA [id number] [address] [place] [address] [place] Creatinine and Glomerular filtration rate.predicted panel (S/P/Bld) 34 mL/min/1.73m??? Low >=60 [facility] Comment on above: Order Comment: Speci men Type: BLOOD SPECIMEN Ordering Facility: [facility] Address: [address] [place] [address] Result Comment: Amy mated Glomerular Filtration Rate [...] GFR. Performed By: #### 5 7021-8 #### [facility] CLIA [id number] [address] [place] [address] [place] Glucose [Mass/Vol] 97 mg/dL Normal 74-99 [facility] Comment on above: Order Comment: Speci men Type: BLOOD SPECIMEN Ordering Facility: [facility] Address: [address] [place] [address] Result Comment: The [place] [employer] (ADA) provides guidance for cutoff [...] Standards of Medical Care in Diabetes 2016, [place] [employer]. Diabetes Care. 2016.39(Suppl 1). Performed By: #### 5 7021-8 #### [facility] CLIA [id number] [address] [place] [address] [place] Potassium [Moles/Vol] 4.2 mmol/L Normal 3.7-5.1 [facility] Comment on above: Order Comment: Tremayne bill Type: BLOOD SPECIMEN Ordering Facility: [facility] Address: [address] [place] [address] Performed By: #### 5 7021-8 #### [facility] CLIA [id number] [address] [place] [address] [place] Protein [Mass/Vol] 7.1 g/dL Normal 6.3-8.0 [facility] Comment on above: Order Comment: Tremayne bill Type: BLOOD SPECIMEN Ordering Facility: [facility] Address: [address] [place] [address] Performed By: #### 5 7021-8 #### [facility] CLIA [id number] [address] [place] [address] [place] Sodium [Moles/Vol] 139 mmol/L Normal 136-144 [facility] Comment on above: Order Comment: Zaki fly Type: BLOOD SPECIMEN Ordering Facility: [facility] Address: [address] [place] [address] Performed By: #### 5 7021-8 #### [facility] CLIA [id number] [address] [place] [address] [place] Urea nitrogen [Mass/Vol] 16 mg/dL Normal 7-21 [facility] Comment on above: Order Comment: Speci men Type: BLOOD SPECIMEN Ordering Facility: [facility] Address: [facility] [place] [address] Performed By: #### 5 7021-8 #### [facility] CLIA [id number] [address] [place] [address] [place] ECG COMPLETEon 11-24-2023 ECG COMPLETE Ventricular Rate : 7 0 BPM Atrial Rate : 70 BPM P-R Interval : 156 ms QRS Duration : 79 ms Q-T Interval : 414 ms QTC Calculation(Bazett) : 447 ms Calculated P Waldo : 50 degrees Calculated R Waldo : 44 degrees Calculated T Waldo : 47 degrees Sinus rhythm Probable left atrial enlargement Borderline ECG 1239 Confirmed by DO BURNETT KATLYN ([id number]), script editor MUMTAZ NG ([id number]) on 11/24/2023 6:50:25 PM NAME : CECE HUBBARD PID : [id number] : 1945 Gender : Female Race : ORD : [id number] Procedure Date : Nov 24 2023 12:38:01 Edit Date : Nov 24 2023 18:50:27 Diagnosis: Sinus rhythm Probable left atrial enlargement Borderline ECG 1239 Confirmed by DO BURNETT KATLYN ([id number]), script editor MUMTAZ NG ([id number]) on 11/24/2023 6:50:25 PM Test Reason : Chest Pain Location : 402 : FVED TRIAGE Overread By : DO BURNETT KATLYN Edited By : MUMTAZ NG Referred By : , Acquired by : RITA [facility] ED NOTEon 11-24-2023 ED NOTE HNO ID: [id number] Author: ANTONIA CAPELLAN, VIKTOR Service: Nursing Author Type: Registered Nurse Type: ED Notes Filed: 11/24/2023 13:53 Note Text: Pt presents to ED for SOB on exertion and weakness for the last week. Pt denies CP. Pt states she is scheduled at [facility] for cardiac surgery on 12/04. Pt ambulatory from home with . [facility] ED NOTE HNO ID: [id number] Author: ALYSE MULLER RN Service: ? Author Type: Registered Nurse Type: ED Notes Filed: 11/24/2023 13:30 Note Text: Bed: 18-ED Expected date: Expected time: Means of arrival: Comments: triage Normal [facility] ED PROV NOTEon 11-24-2023 ED PROV NOTE HNO ID: [id number] Author: PRETTY LACY DO Service: Emergency Medicine [...] >=60 mL/min/1.7 (more content not included)... Normal [facility] ED Triage Noteon 11-24-2023 ED Triage Note HNO ID: [id number] Author: MARION BURNETT DO Service: Emergency Medicine [...] Has chronic nausea that is unchanged. On Eliqu. Complaint with all of her meds. No increased leg swelling or weight gain. Chart review shows she is scheduled for: MVr-CABG [id number]-[id number] +/- AVR on 12/04 but she reports [...] SOB (shortness of breath) R06.02 SIGNATURE: Marion Burnett DO Normal [facility] HIGH SENSITIVITY TROPONIN T (INITIAL)on 11-24-2023 Troponin T.cardiac High sensitivity method [Mass/Vol] 20 ng/L High <12 [facility] Comment on above: Order Comment: Speci men Type: BLOOD SPECIMEN Ordering Facility: [facility] Address: [address] [place] [address] Result Comment: When assessing risk for acute [...] MACE. Performed By: #### 5 7021-8 #### [facility] CLIA [id number] [address] [place] [address] [place] HIGH SENSITIVITY TROPONIN T (SECOND)on 11-24-2023 Troponin T.cardiac High sensitivity method [Mass/Vol] 19 ng/L High <12 [facility] Comment on above: Order Comment: Treamyne bill Type: BLOOD SPECIMEN Ordering Facility: [facility] Address: [address] [place] [address] Result Comment: When assessing risk for acute [...] 30 day MACE. Performed By: #### L LD4615, 24365-0, 48601-5, 38261-2 #### [facility] CLIA [id number] [address] [place] [address] [place] HIGH SENSITIVITY TROPONIN T (THIRD) 3 HRS AFTER INITIALon 11-24-2023 Troponin T.cardiac High sensitivity method [Mass/Vol] Normal [facility] Comment on above: Order Comment: Tremayne men Type: BLOOD SPECIMEN Ordering Facility: [facility] Address: [address] [place] [address] Result Comment: Unab le to assay due to interference from hemolysis. Suggest reorder as clinically indicated. Performed By: #### L DC3029, 98328-0, 61910-0, 66481-3 #### [facility] CLIA [id number] [place] [address] [place] HISTORY PHYSICALon HISTORY PHYSICAL HNO ID: [id number] Author: EMILY TAYLOR PA-C Service: General Internal Medicine Author Type: Physician Acid Conditioning Worker Type: H&P Filed: 11/24/2023 21:37 Note Text: [...] 1 with possible AVR on 12/04 at [facility]. She states she was concerned I won't be able to make it until that day, so she came to the ED for evaluation. In ED, cardiology, Dr. Covarrubias consulted who recommended transfer to [facility] for CABG. Pt accepted by cardiology, Dr. [...] has planned MVr CABG on 12/04 at [facility]. She states she was concerned I won't be able to make it until that day, so she came to the ED for evaluation. In ED, cardiology, Dr. Covarrubias consulted who recommended transfer to [facility] for CABG. Pt accepted by cardiology, Dr. [...] Taking ALLERG (more content not included)... Normal [facility] Magnesium [facility] 11-23 Magnesium [Mass/Vol] 2.1 mg/dL Normal 1.7-2.3 [facility] Comment on above: Order Comment: Speci men Type: BLOOD SPECIMEN Ordering Facility: [facility] Address: [address] [place] [address] Performed By: #### 5 7021-8 #### [facility] CLIA [id number] [address] [place] [address] [place] NT-proBNP [facility] 11-23 Natriuretic peptide.B prohormone N-Terminal [Mass/Vol] 251 pg/mL Normal <450 [facility] Comment on above: Order Comment: Speci men Type: BLOOD SPECIMEN Ordering Facility: [facility] Address: [address] [place] [address] Performed By: #### 5 7021-8 #### [facility] CLIA [id number] [address] [place] [address] [place] NURSING PROGon 11-24-2023 NURSING PROG HNO ID: [id number] Author: SHUBHAM PALMA RN Service: ? Author Type: Registered Nurse Type: Nursing Progress Note Filed: 11/24/2023 19:56 Note Text: Transfer Note: PATIENT NAME: Cece Hubbard Patient Location: [place] [address] Room: [place] [address] Patient transferred into room/unit PK221 in stable condition. Actions taken: Patient belongings with patient. Patient placed on telemetry. Vital signs and standing weight taken. Reoriented to floor and room. Call light within reach. Normal [facility] XR CHEST 2V FRONTAL/LATon XR CHEST 2V [...] Stable exam with no acute radiographic abnormality. Pharmacy Account Director: PSCB Transcribe Date/Time: Nov 24 2023 1:37P Dictated by : FRIDA MONTEIRO MD This examination was interpreted and the report reviewed and electronically signed by: FRIDA MONTEIRO MD on Nov 24 2023 1:37PM EST [id number] Normal [facility] Discharge Instructionson Discharge Instructions [id number]#1.00TIFF Normal [facility] ED Clinical Summaryon 2023 ED Clinical Summary (Inserted Image. Mercedes ble to display) [address] [id number] ED Clinical Summary Person Information Name: CECE HUBBARD Austin/New_Vitor Age: 78 Years : 1945 Sex: Female Language: Kazakh PCP: Demarco [place] MD Marital Status: Phone: [phone] Visit Id: Visit Reason: Fever > 75 [...] 11/10/2023 00:34:31 11/10/2023 00:34:31 11/10/2023 00:34:31 ADDRESS: [address] [place] [address] [address] [place] [id number] PHYS DOC NOTES: MEDICAL INFORMATION: Prescriptions Given: New Medications Printed Prescriptions amoxicillin-clavulanate (Augmentin 875 mg-125 mg Tab) 1 Tablets By Mouth every 12 hours for 7 Days. Refills: 0. azithromycin (azithromycin 250 mg Tab) 250 Milligram By Mouth As Directed. Refills: 0. PATIENT EDUCATION INFORMATION: Instructions: Community-Acquired Pneumonia, Adult, Hcxb-pr-Ftlp Follow up: With: Address: When: Demarco Newell [address] [facility] [place] [place] [address] Business (1) In 3 days 11/12/2023 Comments: Follow-up with your primary care provider in 3 to 5 days. If symptoms worsen, do not improve, or new symptoms arise please report back to emergency department for further evaluation. DIAGNOSIS: Pneumonia Normal [facility] ED Note-Physicianon 11-10-19 24 ED Note-Physician Basic Information Time Seen: Riccardo Angel PA-C 11/09/2023 20:52 Chief Complaint Came with the squad dt flu like sx. Pt said she's had chills, N/V all started 2 hrs prior to coming here. Hx of CAD, Mitral Valve Regurgitation, AFib, takes Eliquis. Heart Cath done previously at [facility]. History of Present Illness A 78-year-old female reports emerged department via squad, with chief complaint of flulike symptoms. Reports that she has had chills, nausea vomiting has been going on all day, with nausea and vomiting starting 2 hours before arrival. States that she has no recent sick contacts. Reports that she was recently discharged from the [facility] due to a history of CAD, which [...] and Complexity of Problems Differential Diagnosis: [] [facility] Data External documents reviewed: [] My EKG interpretation: Reviewed My CT interpretation: [] My X-ray interpretation: Reviewed My Ultrasound interpretation: [] Decision rules/scores evaluated: [] Discussed with: [] Treatment and Disposition ED Course: 78-year-old female reports to the emergency department with chief complaint of nausea, vomiting, and chills. Reports started abruptly this evening. Concern for possible influenza. States that she was recently admitted for a [facility] due to history of heart cath. Reports [...] Level PT & PTT Rapid COVID Antigen ([facility]) Troponin 0 Hr. Troponin 3 Hr. Troponin [...] 1 t (more content not included)... Normal [facility] Comment on above: Result Comment: Elec tronically [...] these instructions at home: Medicines ? Take ckne-uns-vmscixt and prescription medicines only as told by [...] cannot use soap and water, use hand patient scheduling coordinator. Contact a doctor if: ? You have [...] be treate (more content not included)... Normal [facility] ED Patient Summaryon 024 ED Patient Summary (Inserted Image. Mercedes ble to display) [address] [address] Patient Discharge Instructions Person Information Name: CECE HUBBARD Age: 78 Years Arrival Date: 11/09/2023 20:48:26 Discharge Diagnosis: Pneumonia Primary Care Physician: Demarco [place] MD Provider Information Primary Provider: Jalen Flores DO Advanced Disposal Man:None The exam and treatment you received in the Emergency Department were for an urgent problem and are not intended as complete care. It is important that you follow up with a doctor, nurse practitioner, or physician?s environmental assistant for ongoing care. If your symptoms become worse or you do not improve as expected and you are unable to reach your usual health care provider, you should return to the Emergency Department. We are available 24 hours a day. CECE HUBBARD has been given the following list of patient education materials, prescriptions and follow-up instructions: Follow-up Instructions: With: Address: When: Demarco Newell [address] [place] [address], [place] [address] Business (1) In 3 days 11/12/2023 Comments: [...] provider. Patient Education Materials: Community-Acquired Pneumonia, Adult, Ywsc-vf-Bacn A MESSAGE TO ALL PATIENTS REGARDING OPIOIDS PRESCRIPTION OPIOIDS: WHAT YOU NEED TO KNOW Prescription opioids can be used to help relieve qgrnfbao-co-qekfei pain and are often prescribed following a [...] opioids abus (more content not included)... Normal [facility] Monitor Recordon 11-10-2023 Monitor Record [id number]#[id number] Normal [facility] Monitor Record [id number]#[id number] Normal [facility] Troponin 0 Hr.on 11-10-2023 Troponin 14.40 pg/mL Normal 10.10-27.1 0 [facility] Comment on above: Result Comment: The 95% CI (Confidence Interval) PPV (Positive Predictive Value) for myocardial infarction in females is 38 pg/mL, in males 51 pg/mL. The results should be used in conjunction with clinical conditions of myocardial infarction. (Access High Sensitivity Troponin I Instructions For Use, [employer], March 2018) Performed By: #### 2 [id number] #### [facility] [address] [place] [address] UA with Cult Rflxon 11-10-19 24 Color (U) Light-Yellow Normal Yellow [facility] Comment on above: Result Comment: Micr oscopic readings are only performed on those samples that meet specific criteria set forth by [facility]. Performed By: #### 4 [id number] #### [facility] [address] [place] [address] Glucose (U) [Mass/Vol] Negative Normal Negative [facility] Comment on above: Performed By: #### 4 [id number] #### [facility] [address] [place] [address] Ketones Ql (U) Negative Normal Negative [facility] Comment on above: Performed By: #### 4 [id number] #### [facility] [address] [place] [address] UA Blood Negative Normal Negative [facility] Comment on above: Performed By: #### 4 [id number] #### [facility] [address] [place] [address] UA Clarity Clear Normal Clear [facility] Comment on above: Performed By: #### 4 [id number] #### [facility] [address] [place] [address] UA Leuk Est Negative Normal Negative [facility] Comment on above: Performed By: #### 4 [id number] #### [facility] [address] [place] [address] UA Nitrite Negative Normal Negative [facility] Comment on above: Performed By: #### 4 [id number] #### [facility] [address] [place] [address] UA pH 5.0 Invalid Interpretation Code 5.0-9.0 [facility] Comment on above: Performed By: #### 4 [id number] #### [facility] [address] [place] [address] UA Protein Negative Normal Negative [facility] Comment on above: Performed By: #### 4 [id number] #### [facility] [address] [place] [address] UA Spec Grav 1.015 Invalid Interpretation Code 1.005-1.03 0 [facility] Comment on above: Performed By: #### 4 [id number] #### [facility] [address] [place] [address] UA Urobilinogen Negative Normal Negative [facility] Comment on above: Performed By: #### 4 [id number] #### [facility] [address] [place] [address] Urobilinogen (U) [Mass/Vol] Negative Normal Negative [facility] Comment on above: Performed By: #### 4 [id number] #### [facility] [address] [place] [address] XR Chest Single Viewon 11-09 XR Chest [...] Ramón Bonds MD Transcribed by: SALMA Technologist: LEIDY Technical Comments Radiation Dose: Ka,r in mGy = na DAP = na Normal [facility] BMPon 11-09-2023 Anion gap [Moles/Vol] 12 mmol/L Normal 6-16 [facility] Comment on above: Performed By: #### 2 [id number], [id number] #### [facility] [address] [place] [address] Calcium [Mass/Vol] 9.5 mg/dL Normal 8.9-11.1 [facility] Comment on above: Performed By: #### 2 [id number], [id number] #### [facility] [address] [place] [address] Chloride [Moles/Vol] 103 mmol/L Normal 101-111 [facility] Comment on above: Performed By: #### 2 [id number], [id number] #### [facility] [address] [place] [address] CO2 [Moles/Vol] 25 mmol/L Normal - [facility] Comment on above: Performed By: #### 2 [id number], [id number] #### [facility] [address] [place] [address] Creatinine [Mass/Vol] 1.7 mg/dL High 0.5-1.3 [facility] Comment on above: Performed By: #### 2 [id number], [id number] #### [facility] [address] [place] [address] Glucose [Mass/Vol] 109 mg/dL Normal 55-199 [facility] Comment on above: Performed By: #### 2 [id number], [id number] #### [facility] [address] [place] [address] Potassium [Moles/Vol] 3.4 mmol/L Low 3.5-5.3 [facility] Comment on above: Performed By: #### 2 [id number], [id number] #### [facility] [address] [place] [address] Sodium [Moles/Vol] 137 mmol/L Normal 135-145 [facility] Comment on above: Performed By: #### 2 [id number], [id number] #### [facility] [address] [place] [address] Urea nitrogen [Mass/Vol] 24 mg/dL High 5-21 [facility] Comment on above: Performed By: #### 2 [id number], [id number] #### [facility] [address] [place] [address] Urea nitrogen/Creatinine [Mass ratio] 14 No Units Normal 10-20 [facility] Comment on above: Performed By: #### 2 [id number], [id number] #### [facility] [address] [place] [address] CBC w/ Auto Diffon 4 Basophils/100 WBC (Bld) 0.4 % Normal 0.0-2.0 [facility] Comment on above: Performed By: #### 2 [id number], [id number] #### [facility] [address] [place] [address] Basophils/Leukocytes Auto (Bld) [Pure # fraction] 0.0 E9/L Normal 0.0-0.2 [facility] Comment on above: Performed By: #### 2 [id number], [id number] #### [facility] [address] [place] [address] Eosinophils (Bld) [#/Vol] 0.0 E9/L Normal 0.0-0.5 [facility] Comment on above: Performed By: #### 2 [id number], [id number] #### [facility] [address] [place] [address] Eosinophils/100 WBC (Bld) 0.5 % Normal 0.0-8.0 [facility] Comment on above: Performed By: #### 2 [id number], [id number] #### [facility] [address] [place] [address] Erythrocyte distribution width (RBC) [Ratio] 14.7 % High 10.9-14.2 [facility] Comment on above: Performed By: #### 2 [id number], [id number] #### [facility] [address] [place] [address] Hematocrit (Bld) [Volume fraction] 30.8 % Low 34.0-46.0 [facility] Comment on above: Performed By: #### 2 [id number], [id number] #### [facility] [address] [place] [address] Hemoglobin (Bld) [Mass/Vol] 10.2 g/dL Low 12.0-16.0 [facility] Comment on above: Performed By: #### 2 [id number], [id number] #### [facility] [address] [place] [address] Lymphocytes (Bld) [#/Vol] 0.2 E9/L Low 1.0-4.0 [facility] Comment on above: Performed By: #### 2 [id number], [id number] #### [facility] [address] [place] [address] Lymphocytes/100 WBC (Bld) 2.4 % Low 14.0-50.0 [facility] Comment on above: Performed By: #### 2 [id number], [id number] #### [facility] [address] [place] [address] MCH (RBC) [Entitic mass] 31.0 pg Normal 27.0-34.0 [facility] Comment on above: Performed By: #### 2 [id number], [id number] #### [facility] [address] [place] [address] MCHC (RBC) [Mass/Vol] 33.1 g/dL Normal 31.4-36.0 [facility] Comment on above: Performed By: #### 2 [id number], [id number] #### [facility] [address] [place] [address] MCV (RBC) [Entitic vol] 93.5 fL Normal 80.0-100.0 [facility] Comment on above: Performed By: #### 2 [id number], [id number] #### [facility] [address] [place] [address] Monocytes (Bld) [#/Vol] 0.1 E9/L Low 0.2-1.0 [facility] Comment on above: Performed By: #### 2 [id number], [id number] #### [facility] [address] [place] [address] Neutrophils (Bld) [#/Vol] 6.5 E9/L Normal 2.0-7.5 [facility] Comment on above: Performed By: #### 2 [id number], [id number] #### [facility] [address] [place] [address] Neutrophils/100 WBC (Bld) 95.4 % High 36.0-75.0 [facility] Comment on above: Performed By: #### 2 [id number], [id number] #### [facility] [address] [place] [address] Platelet 173.0 E9/L Normal 150.0-500. 0 [facility] Comment on above: Performed By: #### 2 [id number], [id number] #### [facility] [address] [place] [address] Platelet mean volume (Bld) [Entitic vol] 7.9 fL Normal 6.4-10.8 [facility] Comment on above: Performed By: #### 2 [id number], [id number] #### [facility] [address] [place] [address] RBC (Bld) [#/Vol] 3.3 E12/L Low 4.3-5.9 [facility] Comment on above: Performed By: #### 2 [id number], [id number] #### [facility] [address] [place] [address] WBC corrected for nucl RBC Auto (Bld) [#/Vol] 6.8 E9/L Normal 4.0-11.0 [facility] Comment on above: Performed By: #### 2 [id number], [id number] #### [facility] [address] [place] [address] CHEMISTRYOrdered By: SYSTEM SYSTEM on 11-09-2023 Albumin [...] Sensitivity Troponin I Instructions For Use, Giuseppe Kenya, March 2018) Urea nitrogen [Mass/Vol] 24 mg/dL High 5 - 21 mg/dL Rem[facility] Urea nitrogen/Creatinine [Mass ratio] 14 mg/mg Normal 10 - 20 [facility] COAGULATIONOrdered By: Chelsea Campo on 11-09-2023 aPTT Coag (PPP) [Time] 31.9 s Normal 25.1 - 36.5 second(s) [facility] Auto Coag Comment on above: Interpretive Data: [...] obtained from a study by smooth Zamarripa alCharly prepared from 1437 samples obtained at 7 different centers using the same coagulation reagent and instrumentation as [facility]. Currently there are no coagulation studies available worldwide for children to 14 days, and no normal ranges. Heparin therapeutic range (represented by Anti-Factor Xa activity of 0.2 - 0.4 U/mL) corresponds to PTT of 56.6 - 109.0 sec. INR Coag (PPP) [Relative time] 1.71 {INR} Invalid Interpretation Code [facility] Auto Coag Comment on above: Interpretive Data: I NR results are specifically intended to assess patients stabilized on long-term Anticoagulation therapy suggested INR s Less Intensive Anticoagulation 2.0 3.0 Conventional Range 3.0 4.5 PT Coag (PPP) [Time] 19.2 s High 9.4 - 1 2.5 second(s) [facility] Auto Coag Comment on above: Interpretive Data: [...] from a study by Murphy Weathers et alCharly prepared from 1437 samples obtained at 7 different centers using the same coagulation reagent and instrumentation as [facility]. Currently there are no coagulation studies available worldwide for children to 14 days, and no normal ranges. Consent for Treatmenton 10-11 Consent for Treatment [id number] Normal [facility] HEMATOLOGYOrdered By: SYSTEM SYSTEM on 11-09-2023 Basophils/100 [...] 11-09-2023 Albumin [Mass/Vol] 4.0 g/dL Normal 3.3-5.0 [facility] Comment on above: Performed By: #### 2 [id number], [id number] #### [facility] [address] [place] [address] Albumin/Globulin (S) [Mass conc ratio] 1.5 Normal 1.1-2.2 [facility] Comment on above: Performed By: #### 2 [id number], [id number] #### [facility] [address] [place] [address] ALP [Catalytic activity/Vol] 101 Int._Unit/L High 21-98 [facility] Comment on above: Performed By: #### 2 [id number], [id number] #### [facility] [address] [place] [address] ALT No additional P-5'-P [Catalytic activity/Vol] 13 Int._Unit/L Normal 6-46 [facility] Comment on above: Performed By: #### 2 [id number], [id number] #### [facility] [address] [place] [address] AST [Catalytic activity/Vol] 15 Int._Unit/L Normal 5-43 [facility] Comment on above: Performed By: #### 2 [id number], [id number] #### [facility] [address] [place] [address] Bilirubin [Mass/Vol] 1.5 mg/dL High 0.0-1.1 [facility] Comment on above: Performed By: #### 2 [id number], [id number] #### [facility] [address] [place] [address] Bilirubin.direct [Mass/Vol] 0.4 mg/dL Normal 0.0-0.4 [facility] Comment on above: Performed By: #### 2 [id number], [id number] #### [facility] [address] [place] [address] Bilirubin.indirect [Mass or moles/Vol] 1.1 mg/dL High 0.1-0.9 [facility] Comment on above: Performed By: #### 2 [id number], [id number] #### [facility] [address] [place] [address] Globulin (S) [Mass/Vol] 2.6 g/dL Normal 1.4-4.0 [facility] Comment on above: Performed By: #### 2 [id number], [id number] #### [facility] [address] [place] [address] Protein [Mass/Vol] 6.6 g/dL Normal 6.0-7.8 [facility] Comment on above: Performed By: #### 2 [id number], [id number] #### [facility] [address] [place] [address] Influenza A&B Agon Influenzae A Ag Negative Normal Negative [facility] Comment on above: Performed By: #### 2 [id number], [id number] #### [facility] [address] [place] [address] Influenzae B Ag Negative Normal Negative [facility] Comment on above: Result Comment: Test sensitivity and specificity vary for age group, specimen type, antigen types, and prevalence of disease. Test results must be evaluated in conjunction with other clinical data available to the physician. Individuals who received nasally administered Influenza A vaccine may have positive test results up to 3 days after vaccination. Performed By: #### 2 [id number], [id number] #### [facility] [address] [place] [address] Lipase Levelon 11-09-2023 Lipase [Catalytic activity/Vol] 37 U/L Normal 13-58 [facility] Comment on above: Performed By: #### 2 [id number], [id number] #### [facility] [address] [place] [address] MICRO OTHER TESTSOrdered By: Chelsea Campo on 11-09-2023 Influenzae A Ag Negative (11/09/23 9:27 PM) Normal Negative [facility] Man Sero Influenzae B Ag Negative 2 (11/09/23 9:27 PM) Normal Negative [facility] Sero Comment on above: Interpretive Data: T [...] NEG Ctl [place] (11/09/23 9:27 PM) Normal [facility] Man Sero Rapid COV Int POS Ctl Pass (11/09/23 9:27 PM) Normal [facility] Sero SARS-CoV+SARS-CoV-2 (COVID-19) Ag IA.rapid Ql (Resp) Not Detected 7 (11/09/23 9:27 PM) Normal Not Detected [facility]ero Comment on above: Interpretive Data: T he [employer] Veritor System for Rapid Detection of SARS-CoV-2 [...] Coag (PPP) [Time] 31.9 second(s) Normal 25.1-36.5 [facility] Comment on above: Result Comment: Para meter [...] the same coagulation reagent and instrumentation as [facility]. Currently there are no coagulation studies available worldwide for children to 14 days, and no normal ranges. Heparin therapeutic range (represented by Anti-Factor Xa activity of 0.2 - 0.4 U/mL) corresponds to PTT of 56.6 - 109.0 sec. Performed By: #### 2 [id number], [id number] #### [facility] [address] [place] [address] INR Coag (PPP) [Relative time] 1.71 {INR} Invalid Interpretation Code [facility] Comment on above: Result Comment: INR results are specifically intended to assess patients stabilized on long-term Anticoagulation therapy suggested INR?s ?Less Intensive Anticoagulation? 2.0 ? 3.0 Conventional Range 3.0 ? 4.5 Performed By: #### 2 [id number], [id number] #### [facility] [address] [place] [address] PT Coag (PPP) [Time] 19.2 second(s) High 9.4-12.5 [facility] Comment on above: Result Comment: 15 d [...] the same coagulation reagent and instrumentation as [facility]. Currently there are no coagulation studies available worldwide for children to 14 days, and no normal ranges. Performed By: #### 2 [id number], [id number] #### [facility] [address] [place] [address] Pre-Arrival Noteon 4 Pre-Arrival Note Pre-Arrival Summary Name: , formerly [facility] Current Date: 11/09/2023 20:48:59 EDT Gender: Female Date of : Age: 78 Pre-Arrival Type: EMS ETA: 11/09/2023 21:11:00 EDT Primary Care Physician: Presenting Problem: flu like symptoms Pre-Arrival User: Afshin Sagastume RN Referring Source: Location: OR Completion Date/Time: 11/09/2023 20:42:00 [facility] Emergency Department Pre-Hospital Report Form _ Vital Signs: Pre-Hospital Report: Treatment in Route: Response to Treatment: Misc. Issues: Normal [facility] Rapid COVID Antigen ([facility])on 11-09-2023 Rapid COV Int NEG Ctl Pass Normal [facility] Comment on above: Performed By: #### 2 [id number], [id number] #### [facility] [address] [place] [address] Rapid COV Int POS Ctl Pass Normal [facility] Comment on above: Performed By: #### 2 [id number], [id number] #### [facility] [address] [place] [address] SARS-CoV+SARS-CoV-2 (COVID-19) Ag IA.rapid Ql (Resp) Not detected Normal Not Detected [facility] Comment on above: Result Comment: The [employer]? System for Rapid Detection of SARS-CoV-2 is [...] or revoked sooner. Performed By: #### 2 [id number], [id number] #### [facility] [address] [place] [address] UA with Cult Rflxon 11-09-19 UA Spec Desc Clean Catch Normal [facility] Comment on above: Performed By: #### 4 [id number] #### [facility] [address] [place] [address] URINALYSISOrdered By: Gareth Boo on 11-09-2023 Color (U) Light-Yellow 1 (11/09/23 11:30 PM) Normal Yellow [facility] UA Auto SS Comment on above: Interpretive Data: M icroscopic readings are only performed on those samples that meet specific criteria set forth by [facility]. Glucose (U) [Mass/Vol] Negative Normal Negat ivemg /dL [facility] UA Auto SS Ketones Ql (U) Negative Normal Negativemg /dL [facility] Auto SS UA Blood Negative (11/09/23 [...] Urobilinogen (U) [Mass/Vol] Negative Normal Negativemg /dL [facility] UA Auto SS URINALYSISOrdered By: Riccardo alatorre on 11-09-2023 UA Spec Desc Clean Catch (11/09/23 11:30 PM) Normal [facility] UA Auto SS Work Phone: eGFRon 11-09-2023 eGFR 31 mL/min/1.73 m2 Low >=59 [facility] Comment on above: Order Comment: Order added by Discern Expert. Performed By: #### 2 [id number], [id number] #### [facility] [address] [id number] CNDSon 11-06-2023 CNDS HNO ID: [id number] Author: KAIT EASLEY APRN.CNP Service: Hospital Medicine Author Type: Nurse Practitioner [...] femoral vessels (HCC) I have performed the [id number] and relevant services for a total of < 30 minutes. SIGNATURE: Kait Easley APRN.TICKET DISPENSER CHANGER PATIENT NAME: Cece Hubbard DATE: November 06, 2023 TIME: 11:00 AM [facility] CONSULT PROGon 11-06-2023 CONSULT PROG HNO ID: [id number] Author: VASYL COVARRUBIAS MD Service: Cardiovascular Medicine Author Type: Physician Type: Consult Progress Note Filed: 11/06/2023 10:46 Note Text: CARDIOLOGY CONSULT PROGRESS NOTE SERVICE DATE: 11/06/2023 Time: 10:41 AM ATTENDING: Delisa Holman MD [place] Hand: Vasyl Covarrubias MD ASSESSMENT: Admitted with right groin pain and hematoma. Recent admission for with worsening dyspnea -patient says it became a problem when she started amiodarone HFpEF, moderately severe MR (VIOLA Elsah 07/2023: MR ERO 0.33 cm2, MR volume 67cm.)and +2 AI at [facility], says was being considered for MVR LAY [...] anxiety, back and knee surgeries Card meds [employer]BER: Eliquis 5 twice daily, amiodarone 100 daily, Losartan 100 daily, Imdur 30 daily, hydralazine 25 twice daily, Lasix 20 daily, K-Dur 10 daily, Lipitor 40 daily RECOMMENDATIONS: Discussed results of Groin US: S/P compression, no hematoma, no AV fistula no pseudoaneurysm Resume Eliquis tomorrow Resume ASA today Discussed with pt and with MIGRANT LEADER Aubree VITAL SIGNS (last recorded): 11/06/23 0021 [...] 10:41 AM call 24 hour service line [facility] NURSING PROGon 11-06-2023 NURSING PROG HNO ID: [id number] Author: SAMI PAGE RN Service: ? Author Type: Registered Nurse Type: Nursing Progress Note Filed: 11/06/2023 11:51 Note Text: Other: Pt. is ready for d/c home. IV and telemetry pack removed. Pt. dressed and packed her belongings. Discharge instructions reviewed with pt. and her spouse and they verbalized understanding. Pt. d/c via w/c with belongings. Normal [facility] US GROIN UNL VAS LABon 11-05 US GROIN UNL VAS LAB Non-Invasive Vascul ar Laboratory [facility] Lower Extremity Arterial Duplex for Pseudoaneurysm Unilateral [...] arteriovenous fistula and hematoma. Technologist: Rosita Mclain Steve Ordering physician: VASYL COVARRUBIAS Interpreting physician: Grant King MD, PALAK Final CC [employer] Image : [id number] See Link below for Image Normal [facility] Basic metabolic 2000 panelon 11-05-2023 Anion gap [Moles/Vol] 10 mmol/L Normal 9-18 [facility] Comment on above: Order Comment: Speci men Type: BLOOD SPECIMEN Ordering Facility: [facility] Address: [address] [place], [place] [address] Performed By: #### 5 7021-8 #### [facility] CLIA [id number] [address] [place] [address] [place] Calcium [Mass/Vol] 9.1 mg/dL Normal 8.5-10.2 [facility] Comment on above: Order Comment: Speci men Type: BLOOD SPECIMEN Ordering Facility: [facility] Address: [address] [place] [address] Performed By: #### 5 7021-8 #### [facility] CLIA [id number] [address] [place] [address] [place] Chloride [Moles/Vol] 105 mmol/L Normal 97-105 [facility] Comment on above: Order Comment: Speci men Type: BLOOD SPECIMEN Ordering Facility: [facility] Address: [address] [place] [address] Performed By: #### 5 7021-8 #### [facility] CLIA [id number] [address] [place] [address] [place] CO2 [Moles/Vol] 25 mmol/L Normal 22-30 [facility] Comment on above: Order Comment: Speci men Type: BLOOD SPECIMEN Ordering Facility: [facility] Address: [address] [place] [address] Performed By: #### 5 7021-8 #### [facility] CLIA [id number] [address] [place] [address] [place] Creatinine [Mass/Vol] 1.40 mg/dL High 0.58-0.96 [facility] Comment on above: Order Comment: Speci men Type: BLOOD SPECIMEN Ordering Facility: [facility] Address: [address] [place] [address] Performed By: #### 5 7021-8 #### [facility] CLIA [id number] [address] [place] [address] [place] Creatinine and Glomerular filtration rate.predicted panel (S/P/Bld) 39 mL/min/1.73m??? Low >=60 [facility] Comment on above: Order Comment: Speci men Type: BLOOD SPECIMEN Ordering Facility: [facility] Address: [address] [place] [address] Result Comment: Amy mated Glomerular Filtration Rate [...] GFR. Performed By: #### 5 7021-8 #### [facility] CLIA [id number] [address] [place] [address] [place] Glucose [Mass/Vol] 104 mg/dL High 74-99 [facility] Comment on above: Order Comment: Tremayne bill Type: BLOOD SPECIMEN Ordering Facility: [facility] Address: [address] [place] [address] Result Comment: The [place] [employer] (ADA) provides guidance for cutoff [...] Standards of Medical Care in Diabetes 2016, [place] [employer]. Diabetes Care. 2016.39(Suppl 1). Performed By: #### 5 7021-8 #### [facility] CLIA [id number] [address] [place] [address] [place] Potassium [Moles/Vol] 3.9 mmol/L Normal 3.7-5.1 [facility] Comment on above: Order Comment: Tremayne bill Type: BLOOD SPECIMEN Ordering Facility: [facility] Address: [address] [place] [address] Performed By: #### 5 7021-8 #### [facility] CLIA [id number] [address] [place] [address] [place] Sodium [Moles/Vol] 140 mmol/L Normal 136-144 [facility] Comment on above: Order Comment: Speci men Type: BLOOD SPECIMEN Ordering Facility: [facility] Address: [address] [place] [address] Performed By: #### 5 7021-8 #### [facility] CLIA [id number] [address] [place] [address] [place] Urea nitrogen [Mass/Vol] 24 mg/dL High - [facility] Comment on above: Order Comment: Speci men Type: BLOOD SPECIMEN Ordering Facility: [facility] Address: [address] [place] [address] Performed By: #### 5 7021-8 #### [facility] CLIA [id number] [address] [place] [address] [place] CBC panel Auto (Bld)on 11-04 Erythrocyte distribution width (RBC) [Ratio] 13.5 % Normal 11.5-15.0 [facility] Comment on above: Order Comment: Speci men Type: BLOOD SPECIMEN Ordering Facility: [facility] Address: [address] [place] [address] Performed By: #### 5 7021-8 #### [facility] CLIA [id number] [address] [place] [address] [place] Hematocrit (Bld) [Volume fraction] 28.7 % Low 36.0-46.0 [facility] Comment on above: Order Comment: Speci men Type: BLOOD SPECIMEN Ordering Facility: [facility] Address: [address] [place] [address] Performed By: #### 5 7021-8 #### [facility] CLIA [id number] [address] [place] [address] [place] Hemoglobin (Bld) [Mass/Vol] 9.7 g/dL Low 11.5-15.5 [facility] Comment on above: Order Comment: Speci men Type: BLOOD SPECIMEN Ordering Facility: [facility] Address: [address] [place] [address] Performed By: #### 5 7021-8 #### [facility] CLIA [id number] [address] [place] [address] [place] MCH (RBC) [Entitic mass] 31.9 pg Normal 26.0-34.0 [facility] Comment on above: Order Comment: Speci men Type: BLOOD SPECIMEN Ordering Facility: [facility] Address: [address] [place] [address] Performed By: #### 5 7021-8 #### [facility] CLIA [id number] [address] [place] [address] [place] MCHC (RBC) [Mass/Vol] 33.8 g/dL Normal 30.5-36.0 [facility] Comment on above: Order Comment: Speci men Type: BLOOD SPECIMEN Ordering Facility: [facility] Address: [address] [place] [address] Performed By: #### 5 7021-8 #### [facility] CLIA [id number] [address] [place] [address] [place] MCV (RBC) [Entitic vol] 94.4 fL Normal 80.0-100.0 [facility] Comment on above: Order Comment: Speci men Type: BLOOD SPECIMEN Ordering Facility: [facility] Address: [address] [place] [address] Performed By: #### 5 7021-8 #### [facility] CLIA [id number] [address] [place] [address] [place] Nucleated RBC (Bld) [#/Vol] 10*3/uL Normal <0.01 [facility] Comment on above: Order Comment: Speci men Type: BLOOD SPECIMEN Ordering Facility: [facility] Address: [address] [place] [address] Performed By: #### 5 7021-8 #### [facility] CLIA [id number] [address] [place] [address] [place] Platelet mean volume (Bld) [Entitic vol] 11.2 fL Normal 9.0-12.7 [facility] Comment on above: Order Comment: Speci men Type: BLOOD SPECIMEN Ordering Facility: [facility] Address: [address] [place] [address] Performed By: #### 5 7021-8 #### [facility] CLIA [id number] [address] [place] [address] [place] Platelets (Bld) [#/Vol] 150 10*3/uL Normal 150-400 [facility] Comment on above: Order Comment: Speci men Type: BLOOD SPECIMEN Ordering Facility: [facility] Address: [address] [place] [address] Performed By: #### 5 7021-8 #### [facility] CLIA [id number] [address] [place] [address] [place] RBC (Bld) [#/Vol] 3.04 10*6/uL Low 3.90-5.20 [facility] Comment on above: Order Comment: Speci men Type: BLOOD SPECIMEN Ordering Facility: [facility] Address: [address] [place] [address] Performed By: #### 5 7021-8 #### [facility] CLIA [id number] [address] [place] [address] [place] WBC (Bld) [#/Vol] 5.99 10*3/uL Normal 3.70-11.00 [facility] Comment on above: Order Comment: Speci men Type: BLOOD SPECIMEN Ordering Facility: [facility] Address: [address] [place] [address] Performed By: #### 5 7021-8 #### [facility] CLIA [id number] [address] [place] [address] [place] Erythrocyte distribution width (RBC) [Ratio] 13.6 % Normal 11.5-15.0 [facility] Comment on above: Order Comment: Speci men Type: BLOOD SPECIMEN Ordering Facility: [facility] Address: [address] [place] [address] Performed By: #### 5 7021-8 #### [facility] CLIA [id number] [address] [place] [address] [place] Hematocrit (Bld) [Volume fraction] 28.7 % Low 36.0-46.0 [facility] Comment on above: Order Comment: Speci men Type: BLOOD SPECIMEN Ordering Facility: [facility] Address: [address] [place] [address] Performed By: #### 5 7021-8 #### [facility] CLIA [id number] [address] [place] [address] [place] Hemoglobin (Bld) [Mass/Vol] 9.7 g/dL Low 11.5-15.5 [facility] Comment on above: Order Comment: Speci men Type: BLOOD SPECIMEN Ordering Facility: [facility] Address: [address] [place] [address] Performed By: #### 5 7021-8 #### [facility] CLIA [id number] [address] [place] [address] [place] MCH (RBC) [Entitic mass] 31.8 pg Normal 26.0-34.0 [facility] Comment on above: Order Comment: Speci men Type: BLOOD SPECIMEN Ordering Facility: [facility] Address: [address] [place] [address] Performed By: #### 5 7021-8 #### [facility] CLIA [id number] [address] [place] [address] [place] MCHC (RBC) [Mass/Vol] 33.8 g/dL Normal 30.5-36.0 [facility] Comment on above: Order Comment: Speci men Type: BLOOD SPECIMEN Ordering Facility: [facility] Address: [address] [place] [address] Performed By: #### 5 7021-8 #### [facility] CLIA [id number] [address] [place] [address] [place] MCV (RBC) [Entitic vol] 94.1 fL Normal 80.0-100.0 [facility] Comment on above: Order Comment: Speci men Type: BLOOD SPECIMEN Ordering Facility: [facility] Address: [address] [place] [address] Performed By: #### 5 7021-8 #### [facility] CLIA [id number] [address] [place] [address] [place] Nucleated RBC (Bld) [#/Vol] 10*3/uL Normal <0.01 [facility] Comment on above: Order Comment: Speci men Type: BLOOD SPECIMEN Ordering Facility: [facility] Address: [address] [place] [address] Performed By: #### 5 7021-8 #### [facility] CLIA [id number] [address] [place] [address] [place] Platelet mean volume (Bld) [Entitic vol] 11.1 fL Normal 9.0-12.7 [facility] Comment on above: Order Comment: Speci men Type: BLOOD SPECIMEN Ordering Facility: [facility] Address: [address] [place] [address] Performed By: #### 5 7021-8 #### [facility] CLIA [id number] [address] [place] [address] [place] Platelets (Bld) [#/Vol] 152 10*3/uL Normal 150-400 [facility] Comment on above: Order Comment: Speci men Type: BLOOD SPECIMEN Ordering Facility: [facility] Address: [address] [place] [address] Performed By: #### 5 7021-8 #### [facility] CLIA [id number] [address] [place] [address] [place] RBC (Bld) [#/Vol] 3.05 10*6/uL Low 3.90-5.20 [facility] Comment on above: Order Comment: Speci men Type: BLOOD SPECIMEN Ordering Facility: [facility] Address: [address] [place] [address] Performed By: #### 5 7021-8 #### [facility] CLIA [id number] [address] [place] [address] [place] WBC (Bld) [#/Vol] 6.94 10*3/uL Normal 3.70-11.00 [facility] Comment on above: Order Comment: Speci men Type: BLOOD SPECIMEN Ordering Facility: [facility] Address: [address] [place] [address] Performed By: #### 5 7021-8 #### [facility] [id number] [place] CONSULTon 11-05-2023 CONSULT HNO ID: [id number] Author: GRANT KING MD Service: Vascular Surgery [...] with a maximum sheath diameter of 7 Qatari. There were no complications at the end [...] TYRVAYA 0.03 mg/spra (more content not included)... [facility] CONSULT HNO ID: [id number] Author: VASYL COVARRUBIAS MD Service: Cardiovascular Medicine Author Type: Physician Type: Consults Filed: 11/06/2023 10:40 Note Text: CARDIOLOGY SERVICE: CONSULT SERVICE DATE: 11/05/2023 Time: 6:46 AM CONSULTING PHYSICIAN: Vasyl Covarrubias [facility] PCP: Demarco Newell MD ATTENDING: Delisa Holman MD REASON FOR CONSULT: Cardiology Evaluation ASSESSMENT: Admitted with right groin pain and hematoma will check ultrasound Recent admission for with worsening dyspnea -patient says it became a problem when she started amiodarone HFpEF, moderately severe MR (VIOLA Elsah 07/2023: MR ERO 0.33 cm2, MR volume 67cm.)and +2 AI at [facility], says was being considered for MVR LAY [...] anxiety, back and knee surgeries Card meds [employer]: Eliquis 5 twice daily, amiodarone 100 daily, [...] kidney dis (more content not included)... Normal [facility] HISTORY PHYSICALon HISTORY PHYSICAL HNO ID: [id number] Author: SUNITA WOO APRN.TICKET DISPENSER CHANGER Service: General Internal Medicine Author Type: Nurse [...] or fevers (more content not included)... Normal [facility] GROIN UNL VAS LABon 11-04 [facility] Non-Invasive Vascul ar Laboratory [facility] Lower Extremity Arterial Duplex for Pseudoaneurysm Unilateral [...] success. Technologist: Sheldon Galicia RVT Frankie Matamoros RVT Ordering physician: VASYL COVARRUBIAS Interpreting physician: Dianne Schrader MD, RPVI Final CC [facility] Image : [id number] See Link below for Image Normal [facility] CBC W Auto Differential pane l (Bld)on 11-04-2023 Basophils (Bld) [#/Vol] 0.04 10*3/uL Normal <0.11 [facility] Comment on above: Order Comment: Speci men Type: BLOOD SPECIMENOrdering Facility: [facility] Address: [address] [place] [address] Performed By: #### 5 7021-8 ####[facility] [id number] [place] [address] [place] Basophils/100 WBC (Bld) 0.5 % Normal [facility] Comment on above: Order Comment: Speci men Type: BLOOD SPECIMENOrdering Facility: [facility] Address: [address] [place] [address] Performed By: #### 5 7021-8 ####[facility] [id number] [place] [address] [place] Differential cell count method Nom (Bld) Auto Normal [facility] Comment on above: Order Comment: Speci men Type: BLOOD SPECIMENOrdering Facility: [facility] Address: [address] [place] [address] Performed By: #### 5 7021-8 ####[facility] [id number] [place] [address] [place] Eosinophils (Bld) [#/Vol] 0.14 10*3/uL Normal <0.46 [facility] Comment on above: Order Comment: Speci men Type: BLOOD SPECIMENOrdering Facility: [facility] Address: [address] [place] [address] Performed By: #### 5 7021-8 ####[facility] [id number] [address] [place] Eosinophils/100 WBC (Bld) 1.9 % Normal [facility] Comment on above: Order Comment: Speci men Type: BLOOD SPECIMENOrdering Facility: [facility] Address: [address] [place] [address] Performed By: #### 5 7021-8 ####[facility] [id number] [address] [place] Erythrocyte distribution width (RBC) [Ratio] 13.3 % Normal 11.5-15.0 [facility] Comment on above: Order Comment: Speci men Type: BLOOD SPECIMENOrdering Facility: [facility] Address: [address] [place] [address] Performed By: #### 5 7021-8 ####[facility] [id number] [place] [address] [place] Hematocrit (Bld) [Volume fraction] 33.4 % Low 36.0-46.0 [facility] Comment on above: Order Comment: Speci men Type: BLOOD SPECIMENOrdering Facility: [facility] Address: [address] [place] [address] Performed By: #### 5 7021-8 ####[facility] [id number] [place] [id number] [place] Hemoglobin (Bld) [Mass/Vol] 11.1 g/dL Low 11.5-15.5 [facility] Comment on above: Order Comment: Speci men Type: BLOOD SPECIMENOrdering Facility: [facility] Address: [address] [place] [address] Performed By: #### 5 7021-8 ####[facility] [id number] [place] [address] [place] Immature granulocytes (Bld) [#/Vol] 10*3/uL Normal <0.10 [facility] Comment on above: Order Comment: Speci men Type: BLOOD SPECIMENOrdering Facility: [facility] Address: [address] [place] [address] Performed By: #### 5 7021-8 ####[facility]IA [id number] [place] [address] [place] Immature granulocytes/100 WBC (Bld) 0.3 % Normal [facility] Comment on above: Order Comment: Speci men Type: BLOOD SPECIMENOrdering Facility: [facility] Address: [address] [place] [address] Performed By: #### 5 7021-8 ####[facility] [id number] [place] [address] [place] Lymphocytes (Bld) [#/Vol] 1.20 10*3/uL Normal 1.00-4.00 [facility] Comment on above: Order Comment: Speci men Type: BLOOD SPECIMENOrdering Facility: [facility] Address: [address] [place] [address] Performed By: #### 5 7021-8 ####[facility]CLIA [id number] [place] [address] [place] Lymphocytes/100 WBC (Bld) 16.3 % Normal [facility] Comment on above: Order Comment: Speci men Type: BLOOD SPECIMENOrdering Facility: [facility] Address: [address] [place] [address] Performed By: #### 5 7021-8 ####[facility]CLIA [id number] [address] [place] [facility] MCH (RBC) [Entitic mass] 31.3 pg Normal 26.0-34.0 [facility] Comment on above: Order Comment: Speci men Type: BLOOD SPECIMENOrdering Facility: [facility] Address: [address] [place] [address] Performed By: #### 5 7021-8 ####[facility]CLIA [id number] [place] [id number] [place] MCHC (RBC) [Mass/Vol] 33.2 g/dL Normal 30.5-36.0 [facility] Comment on above: Order Comment: Speci men Type: BLOOD SPECIMENOrdering Facility: [facility] Address: [address] [place] [address] Performed By: #### 5 7021-8 ####[facility]CLIA [id number] [address] [place] MCV (RBC) [Entitic vol] 94.1 fL Normal 80.0-100.0 [facility] Comment on above: Order Comment: Speci men Type: BLOOD SPECIMENOrdering Facility: [facility] Address: [address] [place] [address] Performed By: #### 5 7021-8 ####[facility]ORYCLIA [id number] [address] [place] Monocytes (Bld) [#/Vol] 0.78 10*3/uL Normal <0.87 [facility] Comment on above: Order Comment: Speci men Type: BLOOD SPECIMENOrdering Facility: [facility] Address: [address] [place] [address] Performed By: #### 5 7021-8 ####[facility]ORYCLIA [id number] [address] Monocytes/100 WBC (Bld) 10.6 % Normal [facility] Comment on above: Order Comment: Speci men Type: BLOOD SPECIMENOrdering Facility: [facility] Address: [address] [place] [address] Performed By: #### 5 7021-8 ####[facility]ORYCLIA [id number] [place] [id number] [place] Neutrophils (Bld) [#/Vol] 5.17 10*3/uL Normal 1.45-7.50 [facility] Comment on above: Order Comment: Speci men Type: BLOOD SPECIMENOrdering Facility: [facility] Address: [address] [place] [address] Performed By: #### 5 7021-8 ####[facility]ORYCLIA [id number] [place] [id number] [place] Neutrophils/100 WBC (Bld) 70.4 % Normal [facility] Comment on above: Order Comment: Speci men Type: BLOOD SPECIMENOrdering Facility: [facility] Address: [address] [place] [address] Performed By: #### 5 7021-8 ####[facility]ORYCLIA [id number] [place] [address] [place] Nucleated RBC (Bld) [#/Vol] 10*3/uL Normal <0.01 [facility] Comment on above: Order Comment: Speci men Type: BLOOD SPECIMENOrdering Facility: [facility] Address: [address] [place] [address] Performed By: #### 5 7021-8 ####[facility]ORYCLIA [id number] [place] [id number] [place] Nucleated RBC/100 WBC (Bld) [Ratio] 0.0 /100 WBC Normal [facility] Comment on above: Order Comment: Speci men Type: BLOOD SPECIMENOrdering Facility: [facility] Address: [address] [place] [address] Performed By: #### 5 7021-8 ####[facility]ORYCLIA [id number] [place] [id number] [place] Platelet mean volume (Bld) [Entitic vol] 11.3 fL Normal 9.0-12.7 [facility] Comment on above: Order Comment: Speci men Type: BLOOD SPECIMENOrdering Facility: [facility] Address: [address] [place] [address] Performed By: #### 5 7021-8 ####[facility]ORYCLIA [id number] [place] [id number] [place] Platelets (Bld) [#/Vol] 187 10*3/uL Normal 150-400 [facility] Comment on above: Order Comment: Speci men Type: BLOOD SPECIMENOrdering Facility: [facility] Address: [address] [place] [address] Performed By: #### 5 7021-8 ####[facility] [id number] [place] [id number] [place] RBC (Bld) [#/Vol] 3.55 10*6/uL Low 3.90-5.20 [facility] Comment on above: Order Comment: Speci men Type: BLOOD SPECIMENOrdering Facility: [facility] Address: [address] [place] [address] Performed By: #### 5 7021-8 ####[facility] [id number] [place] [id number] [place] WBC (Bld) [#/Vol] 7.35 10*3/uL Normal 3.70-11.00 [facility] Comment on above: Order Comment: Speci men Type: BLOOD SPECIMENOrdering Facility: [facility] Address: [address] [place] [address] Performed By: #### 5 7021-8 ####[facility] [id number] [place] [id number] [facility] [place] Comprehensive metabolic 2000 panelon 11-04-2023 Albumin [Mass/Vol] 4.3 g/dL Normal 3.9-4.9 [facility] Comment on above: Order Comment: Speci men Type: BLOOD SPECIMEN [facility] Address: [address] [place] [address] Performed By: #### 5 7021-8 #### [facility] CLIA [id number] [address] [place] [address] [place] ALP [Catalytic activity/Vol] 107 U/L Normal 34-123 [facility] Comment on above: Order Comment: Speci men Type: BLOOD SPECIMEN [facility] Address: [address] [place] [address] Performed By: #### 5 7021-8 #### [facility] CLIA [id number] [address] [place] [address] [place] ALT [Catalytic activity/Vol] 12 U/L Normal 7-38 [facility] Comment on above: Order Comment: Speci men Type: BLOOD SPECIMEN [facility] Address: [address] [place] [address] Performed By: #### 5 7021-8 #### [facility] CLIA [id number] [address] [place] [address] [place] Anion gap [Moles/Vol] 12 mmol/L Normal 9-18 [facility] Comment on above: Order Comment: Speci men Type: BLOOD SPECIMEN [facility] Address: [address] [place] [address] Performed By: #### 5 7021-8 #### [facility] CLIA [id number] [address] [place] [address] [place] AST [Catalytic activity/Vol] 13 U/L Normal 13-35 [facility] Comment on above: Order Comment: Speci men Type: BLOOD SPECIMEN [facility] Address: [address] [place] [address] Performed By: #### 5 7021-8 #### [facility] CLIA [id number] [address] [place] [address] [place] Bilirubin [Mass/Vol] 0.9 mg/dL Normal 0.2-1.3 [facility] Comment on above: Order Comment: Speci men Type: BLOOD SPECIMEN [facility] Address: [address] [place] [address] Performed By: #### 5 7021-8 #### [facility] CLIA [id number] [address] [place], [place] [id number] [place] Calcium [Mass/Vol] 9.4 mg/dL Normal 8.5-10.2 [facility] Comment on above: Order Comment: Speci men Type: BLOOD SPECIMEN [facility] Address: [address] [place] [address] Performed By: #### 5 7021-8 #### [facility] CLIA [id number] [place] [address] [place] Chloride [Moles/Vol] 102 mmol/L Normal 97-105 [facility] Comment on above: Order Comment: Speci men Type: BLOOD SPECIMEN Ordering Facility: [facility] Address: [address] [place] [address] Performed By: #### 5 7021-8 #### [facility] CLIA [id number] [address] [place] [address] [place] CO2 [Moles/Vol] 26 mmol/L Normal 22-30 [facility] Comment on above: Order Comment: Speci men Type: BLOOD SPECIMEN Ordering Facility: [facility] Address: [address] [place] [address] Performed By: #### 5 7021-8 #### [facility] CLIA [id number] [address] [place] [address] [place] Creatinine [Mass/Vol] 1.45 mg/dL High 0.58-0.96 [facility] Comment on above: Order Comment: Speci men Type: BLOOD SPECIMEN Ordering Facility: [facility] Address: [address] [place] [address] Performed By: #### 5 7021-8 #### [facility] CLIA [id number] [address] [place] [address] [place] Creatinine and Glomerular filtration rate.predicted panel (S/P/Bld) 37 mL/min/1.73m??? Low >=60 [facility] Comment on above: Order Comment: Speci men Type: BLOOD SPECIMEN Ordering Facility: [facility] Address: [address] [place] [address] Result Comment: Amy mated Glomerular Filtration Rate [...] GFR. Performed By: #### 5 7021-8 #### [facility] CLIA [id number] [place] [address] [place] Glucose [Mass/Vol] 99 mg/dL Normal 74-99 [facility] Comment on above: Order Comment: Speci men Type: BLOOD SPECIMEN Ordering Facility: [facility] Address: [address] [place] [address] Result Comment: The [place] Diabetes Association (ADA) provides guidance for cutoff [...] Standards of Medical Care in Diabetes 2016, [place] [employer]. Diabetes Care. 2016.39(Suppl 1). Performed By: #### 5 7021-8 #### [facility] CLIA [id number] [place] [address] [place] Potassium [Moles/Vol] 3.8 mmol/L Normal 3.7-5.1 [facility] Comment on above: Order Comment: Zaki fly Type: BLOOD SPECIMEN Ordering Facility: [facility] Address: [address] [place] [address] Performed By: #### 5 7021-8 #### [facility] CLIA [id number] [place] [address] [place] Protein [Mass/Vol] 6.7 g/dL Normal 6.3-8.0 [facility] Comment on above: Order Comment: Speci men Type: BLOOD SPECIMEN Ordering Facility: [facility] Address: [address] [place] [address] Performed By: #### 5 7021-8 #### [facility] CLIA [id number] [place] Sodium [Moles/Vol] 140 mmol/L Normal 136-144 [facility] Comment on above: Order Comment: Speci men Type: BLOOD SPECIMEN Ordering Facility: [facility] Address: [address] [place] [address] Performed By: #### 5 7021-8 #### [facility] CLIA [id number] [address] [place] [address] [place] Urea nitrogen [Mass/Vol] 24 mg/dL High 7- [facility] Comment on above: Order Comment: Speci men Type: BLOOD SPECIMEN Ordering Facility: [facility] Address: [address] [place] [address] Performed By: #### 5 7021-8 #### [facility] CLIA [id number] [address] [place] [address] [place] ECG COMPLETEon 11-04-2023 ECG COMPLETE Ventricular Rate : 6 1 BPM Atrial Rate : 62 BPM P-R Interval : 154 ms QRS Duration : 88 ms Q-T Interval : 455 ms QTC Calculation(Bazett) : 459 ms Calculated P Waldo : 62 degrees Calculated R Waldo : 68 degrees Calculated T Waldo : 42 degrees Sinus rhythm Minimal ST depression, diffuse leads Otherwise Normal ECG resigned december Confirmed by MD COLEMAN ACHILLES ([id number]), script editor SHELDON PLATT ([id number]) on 12/31/2023 9:08:34 AM NAME : CECE HUBBARD PID : [id number] : 1945 Gender : Female Race : ORD : [id number] Procedure Date : Nov 04 2023 20:26:04 Edit Date : Dec 31 2023 09:08:38 Diagnosis: Sinus rhythm Minimal ST depression, diffuse leads Otherwise Normal ECG resigned december Confirmed by MD COLEMAN ACHILLES ([id number]), script editor SHELDON PLATT ([id number]) on 12/31/2023 9:08:34 AM Test Reason : Chest Pain Location : 402 : [place] Overread By : MD JARED,ACHILLES Edited By : SHELDON PLATT Referred By : , Acquired by : [id number], [facility] ED NOTEon 11-04-2023 ED NOTE HNO ID: [id number] Author: ALYSE MULLER RN Service: ? Author Type: Registered Nurse Type: ED Notes Filed: 11/04/2023 17:49 Note Text: Bed: 68-ED Expected date: Expected time: Means of arrival: Comments: triage [facility] ED PROV NOTEon 11-04-2023 ED PROV NOTE HNO ID: [id number] Author: BENJAMIN WILLIS MD Service: Emergency Medicine Author Type: Physician Type: ED Provider Notes Filed: 11/04/2023 23:40 Note Text: ED Provider Note Patient Name: Cece Hubbard : 1945 SERVICE DATE: 11/04/23 History Patient presents with: Leg Pain: Pt reports right leg pain and had an ultrasound perfromed. [facility] ultrasound showed a blood clot in her leg. [facility] sent Hx of heart cath on Friday [...] oriented to perso (more content not included)... [facility] ED Triage Noteon 11-04-2023 ED Triage Note HNO ID: [id number] Author: HARRISON CHAUDHRY MD Service: ? Author [...] No diagnosis found. SIGNATURE: Harrison Chaudhry MD [facility] EKGon 11-04-2023 Electrocardiogram Ventricular Rate : 6 2 BPM Atrial Rate : 62 BPM P-R Interval : 158 ms QRS Duration : 90 ms Q-T Interval : 467 ms QTC Calculation(Bazett) : 475 ms Calculated P Waldo : 65 degrees Calculated R Waldo : 70 degrees Calculated T Waldo : 56 degrees Sinus rhythm Borderline ST depression, diffuse leads Borderline ECG 2030 Confirmed by MD COLEMAN ACHILLES ([id number]), script editor CHELSEA LOYA ([id number]) on 11/05/2023 10:31:06 AM NAME : CECE HUBBARD PID : [id number] : 1945 Gender : Female Race : ORD : Procedure Date : Nov 04 2023 20:28:19 Edit Date : Nov 05 2023 10:31:07 Diagnosis: Sinus rhythm Borderline ST depression, diffuse leads Borderline ECG 2030 Confirmed by MD COLEMAN ACHILLES ([id number]), script editor CHELSEA LOYA ([id number]) on 11/05/2023 10:31:06 AM Test Reason : Location : [address] : [place] [address] Overread By : MD COLEMAN ACHILLES Edited By : CHELSEA LOYA Referred By : , Acquired by : [id number], [facility] 11-02-2023 [facility] HNO ID: [id number] Author: ATA TOSCANO MD Service: General Internal [...] Of note, she follows with cardiology in [place] but has been seeking care at [facility] for symptomatic MR and evaluation for MVR [...] awaiting results. Request made for OSH Echo ([place]) for Cardiology to evaluate. Losartan on hold [...] VIOLA - Request made for OSH Echo ([place]) for Cardiology to evaluate. - Losartan on hold due to LAY - restart at discharge - Hold Lasix while inpatient - restart at discharge - Has appointment scheduled 11/21/[address] Hermosillo to evaluate for MVR Atrial fibrillation (HCC)- (present on admission) - Recent diagnosis as of Sep 2023 - d/c Amiodarone and metoprolol as per Cardiology - c/w Melita - (more content not included)... [facility] CONSULT PROGon 11-02-2023 CONSULT PROG HNO ID: [id number] Author: VASYL COVARRUBIAS MD Service: Cardiovascular Medicine Author Type: Physician Type: Consult Progress Note Filed: 11/02/2023 13:36 Note Text: CARDIOLOGY CONSULT PROGRESS NOTE SERVICE DATE: 11/02/2023 Time: 9:54 AM ATTENDING: Ata Toscano MD [place] Hand: Vasyl Covarrubias MD ASSESSMENT: Admitted with worsening dyspnea -patient says it became a problem when she started amiodarone HFpEF, moderately severe MR (VIOLA [place] 07/2023: MR ERO 0.33 cm2, MR volume 67cm.)and +2 AI at [facility], says was being considered for MVR LAY [...] anxiety, back and knee surgeries Card meds [employer]: Eliquis 5 twice daily, amiodarone 200 twice [...] AM call 24 hour service line Normal [facility] Basic metabolic 2000 panelon 11-01-2023 Anion gap [Moles/Vol] 12 mmol/L Normal 9-18 [facility] Comment on above: Order Comment: Speci men Type: BLOOD SPECIMENOrdering Facility: [facility] Address: [address] [place] [address] Performed By: #### 2 4321-2 ####[facility] [id number] [place] [id number] [place] Calcium [Mass/Vol] 8.9 mg/dL Normal 8.5-10.2 [facility] Comment on above: Order Comment: Speci men Type: BLOOD SPECIMENOrdering Facility: [facility] Address: [address] [place] [address] Performed By: #### 2 4321-2 ####[facility] [id number] [place] [id number] [place] Chloride [Moles/Vol] 102 mmol/L Normal 97-105 [facility] Comment on above: Order Comment: Speci men Type: BLOOD SPECIMENOrdering Facility: [facility] Address: [address] [place] [address] Performed By: #### 2 4321-2 ####[facility] [id number] [place] [id number] [place] CO2 [Moles/Vol] 23 mmol/L Normal 22-30 [facility] Comment on above: Order Comment: Speci men Type: BLOOD SPECIMENOrdering Facility: [facility] Address: [address] [place] [address] Performed By: #### 2 4321-2 ####[facility] [id number] [place] [id number] [place] Creatinine [Mass/Vol] 1.40 mg/dL High 0.58-0.96 [facility] Comment on above: Order Comment: Speci men Type: BLOOD SPECIMENOrdering Facility: [facility] Address: [address] [place] [address] Performed By: #### 2 4321-2 ####[facility] [id number] [place] [id number] [place] Creatinine and Glomerular filtration rate.predicted panel (S/P/Bld) 39 mL/min/1.73m??? Low >=60 [facility] Comment on above: Order Comment: Speci men Type: BLOOD SPECIMENOrdering Facility: [facility] Address: [address] [place] [address] Result Comment: Amy mated Glomerular Filtration Rate [...] actual GFR. Performed By: #### 2 4321-2 ####[facility] [id number] [place] [id number] [place] Glucose [Mass/Vol] 114 mg/dL High 74-99 [facility] Comment on above: Order Comment: Speci men Type: BLOOD SPECIMENOrdering Facility: [facility] Address: [address] [place] [address] Result Comment: The [place] Diabetes Association (ADA) provides guidance for cutoff [...] Standards of Medical Care in Diabetes 2016, [place] [employer]. Diabetes Care. 2016.39(Suppl 1). Performed By: #### 2 4321-2 ####[facility] [id number] [place] [address] [place] Potassium [Moles/Vol] 4.0 mmol/L Normal 3.7-5.1 [facility] Comment on above: Order Comment: Speci men Type: BLOOD SPECIMENOrdering Facility: [facility] Address: [address] [place] [address] Performed By: #### 2 4321-2 ####[facility] [id number] [place] [id number] [place] Sodium [Moles/Vol] 137 mmol/L Normal 136-144 [facility] Comment on above: Order Comment: Speci men Type: BLOOD SPECIMENOrdering Facility: [facility] Address: [address] [place] [address] Performed By: #### 2 4321-2 ####[facility] [id number] [place] [address] [place] Urea nitrogen [Mass/Vol] 27 mg/dL High 7-21 [facility] Comment on above: Order Comment: Speci men Type: BLOOD SPECIMENOrdering Facility: [facility] Address: [address] [place] [address] Performed By: #### 2 4321-2 ####[facility] [id number] [address] [place] CONSULT PROGon 11-01-2023 CONSULT PROG HNO ID: [id number] Author: VASYL COVARRUBIAS MD Service: Cardiovascular Medicine Author Type: Physician Type: Consult Progress Note Filed: 11/02/2023 09:54 Note Text: CARDIOLOGY CONSULT PROGRESS NOTE SERVICE DATE: 11/01/2023 Time: 9:11 AM ATTENDING: Ata Toscano MD [place] Hand: Vasyl Covarrubias MD ASSESSMENT: Admitted with worsening dyspnea -patient says it became a problem when she started amiodarone HFpEF, moderately severe MR (VIOLA [place] 07/2023: MR ERO 0.33 cm2, MR volume 67cm.)and +2 AI at [facility], says was being considered for MVR LAY [...] anxiety, back and knee surgeries Card meds [employer]: Eliquis 5 twice daily, amiodarone 200 twice [...] AM call 24 hour service line Normal [facility] CBC W Auto Differential pane l (Bld)on 10-31-2023 Basophils (Bld) [#/Vol] 0.04 10*3/uL Normal <0.11 [facility] Comment on above: Order Comment: Speci men Type: BLOOD SPECIMEN Order[facility] Facility: [facility] Address: [address] [place] [address] Performed By: #### 5 7021-8 #### [facility] CLIA [id number] [address] [place] [address] [place] Basophils/100 WBC (Bld) 0.6 % Normal [facility] Comment on above: Order Comment: Speci men Type: BLOOD SPECIMEN Ordering Facility: [facility] Address: [address] [place] [address] Performed By: #### 5 7021-8 #### [facility] CLIA [id number] [address] [place] [address] [place] Differential cell count method Nom (Bld) Auto Normal [facility] Comment on above: Order Comment: Speci men Type: BLOOD SPECIMEN Order[facility] Facility: [facility] Address: [address] [place] [address] Performed By: #### 5 7021-8 #### [facility] CLIA [id number] [address] [place] [address] [place] Eosinophils (Bld) [#/Vol] 0.23 10*3/uL Normal <0.46 [facility] Comment on above: Order Comment: Speci men Type: BLOOD SPECIMEN Order[facility] Facility: [facility] Address: [address] [place] [address] Performed By: #### 5 7021-8 #### [facility] CLIA [id number] [address] [place] [address] [place] Eosinophils/100 WBC (Bld) 3.6 % Normal [facility] Comment on above: Order Comment: Speci men Type: BLOOD SPECIMEN Ordering Facility: [facility] Address: [address] [place] [address] Performed By: #### 5 7021-8 #### [facility] CLIA [id number] [address] [place] [address] [place] Erythrocyte distribution width (RBC) [Ratio] 13.2 % Normal 11.5-15.0 [facility] Comment on above: Order Comment: Speci men Type: BLOOD SPECIMEN Order[facility] Facility: [facility] Address: [address] [place] [address] Performed By: #### 5 7021-8 #### [facility] CLIA [id number] [address] [place] [address] [place] Hematocrit (Bld) [Volume fraction] 36.3 % Normal 36.0-46.0 [facility] Comment on above: Order Comment: Speci men Type: BLOOD SPECIMEN [facility] Facility: [facility] Address: [address] [place] [address] Performed By: #### 5 7021-8 #### [facility] CLIA [id number] [address] [place] [address] [place] Hemoglobin (Bld) [Mass/Vol] 12.2 g/dL Normal 11.5-15.5 [facility] Comment on above: Order Comment: Speci men Type: BLOOD SPECIMEN Order[facility] Facility: [facility] Address: [address] [place] [address] Performed By: #### 5 7021-8 #### [facility] CLIA [id number] [address] [place] [address] [place] Immature granulocytes (Bld) [#/Vol] 0.07 10*3/uL Normal <0.10 [facility] Comment on above: Order Comment: Speci men Type: BLOOD SPECIMEN Ordering Facility: [facility] Address: [address] [place] [address] Performed By: #### 5 7021-8 #### [facility] CLIA [id number] [address] [place] [address] [place] Immature granulocytes/100 WBC (Bld) 1.1 % Normal [facility] Comment on above: Order Comment: Speci men Type: BLOOD SPECIMEN Ordering Facility: [facility] Address: [address] [place] [address] Performed By: #### 5 7021-8 #### [facility] CLIA [id number] [address] [place] [address] [place] Lymphocytes (Bld) [#/Vol] 1.81 10*3/uL Normal 1.00-4.00 [facility] Comment on above: Order Comment: Speci men Type: BLOOD SPECIMEN Order[facility] Facility: [facility] Address: [address] [place] [address] Performed By: #### 5 7021-8 #### [facility] CLIA [id number] [address] [place] [address] [place] Lymphocytes/100 WBC (Bld) 28.2 % Normal [facility] Comment on above: Order Comment: Speci men Type: BLOOD SPECIMEN [facility] Facility: [facility] Address: [address] [place] [address] Performed By: #### 5 7021-8 #### [facility] CLIA [id number] [address] [place] [address] [place] MCH (RBC) [Entitic mass] 31.6 pg Normal 26.0-34.0 [facility] Comment on above: Order Comment: Speci men Type: BLOOD SPECIMEN [facility] Facility: [facility] Address: [address] [place] [address] Performed By: #### 5 7021-8 #### [facility] CLIA [id number] [address] [place] [address] [place] MCHC (RBC) [Mass/Vol] 33.6 g/dL Normal 30.5-36.0 [facility] Comment on above: Order Comment: Speci men Type: BLOOD SPECIMEN [facility]: [facility] Address: [address] [place] [address] Performed By: #### 5 7021-8 #### [facility] CLIA [id number] [address] [place] [address] [place] MCV (RBC) [Entitic vol] 94.0 fL Normal 80.0-100.0 [facility] Comment on above: Order Comment: Speci men Type: BLOOD SPECIMEN [facility] Facility: [facility] Address: [address] [place] [address] Performed By: #### 5 7021-8 #### [facility] CLIA [id number] [address] [place] [address] [place] Monocytes (Bld) [#/Vol] 0.84 10*3/uL Normal <0.87 [facility] Comment on above: Order Comment: Speci men Type: BLOOD SPECIMEN [facility] Facility: [facility] Address: [address] [place] [address] Performed By: #### 5 7021-8 #### [facility] CLIA [id number] [address] [place] [address] [place] Monocytes/100 WBC (Bld) 13.1 % Normal [facility] Comment on above: Order Comment: Speci men Type: BLOOD SPECIMEN [facility] Facility: [facility] Address: [address] [place] [address] Performed By: #### 5 7021-8 #### [facility] CLIA [id number] [address] [place] [address] [place] Neutrophils (Bld) [#/Vol] 3.43 10*3/uL Normal 1.45-7.50 [facility] Comment on above: Order Comment: Speci men Type: BLOOD SPECIMEN Order[facility] Facility: [facility] Address: [address] [place] [address] Performed By: #### 5 7021-8 #### [facility] CLIA [id number] [address] [place] [address] [place] Neutrophils/100 WBC (Bld) 53.4 % Normal [facility] Comment on above: Order Comment: Speci men Type: BLOOD SPECIMEN [facility] Facility: [facility] Address: [address] [place] [address] Performed By: #### 5 7021-8 #### [facility] CLIA [id number] [address] [place] [address] [place] Nucleated RBC (Bld) [#/Vol] 10*3/uL Normal <0.01 [facility] Comment on above: Order Comment: Speci men Type: BLOOD SPECIMEN Order[facility] Facility: [facility] Address: [address] [place] [address] Performed By: #### 5 7021-8 #### [facility] CLIA [id number] [address] [place] [address] [place] Nucleated RBC/100 WBC (Bld) [Ratio] 0.0 /100 WBC Normal [facility] Comment on above: Order Comment: Speci men Type: BLOOD SPECIMEN [facility] Facility: [facility] Address: [address] [place] [address] Performed By: #### 5 7021-8 #### [facility] CLIA [id number] [address] [place] [address] [place] Platelet mean volume (Bld) [Entitic vol] 11.3 fL Normal 9.0-12.7 [facility] Comment on above: Order Comment: Speci men Type: BLOOD SPECIMEN [facility] Facility: [facility] Address: [address] [place] [address] Performed By: #### 5 7021-8 #### [facility] CLIA [id number] [address] [place] [address] [place] Platelets (Bld) [#/Vol] 174 10*3/uL Normal 150-400 [facility] Comment on above: Order Comment: Speci men Type: BLOOD SPECIMEN [facility] Facility: [facility] Address: [address] [place] [address] Performed By: #### 5 7021-8 #### [facility] CLIA [id number] [address] [place] [address] [place] RBC (Bld) [#/Vol] 3.86 10*6/uL Low 3.90-5.20 [facility] Comment on above: Order Comment: Speci men Type: BLOOD SPECIMEN [facility] Facility: [facility] Address: [address] [place] [address] Performed By: #### 5 7021-8 #### [facility] CLIA [id number] [address] [place] [address] [place] WBC (Bld) [#/Vol] 6.42 10*3/uL Normal 3.70-11.00 [facility] Comment on above: Order Comment: Speci men Type: BLOOD SPECIMEN [facility] Facility: [facility] Address: [address] [place] [address] Performed By: #### 5 7021-8 #### [facility] CLIA [id number] [place] [address] OF [facility] [place] 10-31-2023 CNPN Telephone ([facility]) -- CECE HUBBARD ([id number]) 1945 F Date Time Provider Department 10/31/23 MILOARNOL ADALJUAN DAVID [facility] During your visit today, we recorded [...] Change Date Reviewed: 10/31/2023 Reviewed by: Giles Silvestre, RN - Fully Assessed Reason for Visit: [...] microspheres 1.1 mg/mL 1.3 mL injection (DEFINITY) Problem List As Of Date 10/31/2023 Noted [...] Encounter Status:Closed by RAYO GONZALEZ [facility]31[facility] -- CECE HUBBARD ([id number]) 1945 F Date Time Provider Department 10/31/23 [facility] During your visit today, we recorded the following information about you: Karis Ware 10/31/2023 4:24 PM Signed LOCAL PATIENT Received Call from Dr. Satish Clementor is being referred to Gaetano Shaw MD by Vasyl Covarrubias [id number] [address] [facility] [address] Patient diagnosis/Reason for consult: MVR Referral triage process explained: N/A Patient will receive a call from Cardiac NPM after triage review with surgeon to discuss any additional testing and/or consults that will be scheduled. Pt will then receive a call from our scheduling office for scheduling. Please call pt at [phone]. Patient Registration: Registration complete/updated: yes Insurance card(s) scanned in [facility] with in the past year: Yes: Date: 10/26/2023 Pt's appsplitt is active. Ok to communicate to pt via [employer] not asked Medical Records: Records in [facility] (internal [facility] records): Yes Imaging in [facility] (internal [facility] records): Yes Additional providers added to Care Teams: Yes Additional Notes/Comments: Enct routed to: Yes, Cardiac NPM for triage Karis Bolden [facility] Jadyn Storey RN 11/03/2023 9:59 AM Signed Chart reviewed November 03, 2023. File given to Dr. Shaw for his review/plan of care. Cece Hubbard [id number] 78 year old Diagnosis: 3+ mod severe [...] she is able to be seen in [place] [facility] tomorrow, so she would like to [...] Correct birthday/include all images/moving if outside cath [facility] 10/31/23 Redo OHS/Robotic surgery/radiation to chest [...] Valve/TAVR/TEVAR/Myectomy/ ascending aorta Dental clearance/Dental Consult at [facility] Will bring letter CABG surgery with previous [...] needed Communicate (more content not included)... Normal [facility] CONSULT PROGon 10-31-2023 CONSULT PROG HNO ID: [id number] Author: VASYL COVARRUBIAS MD Service: Cardiovascular Medicine Author Type: Physician Type: Consult Progress Note Filed: 10/31/2023 10:07 Note Text: CARDIOLOGY CONSULT PROGRESS NOTE SERVICE DATE: 10/31/2023 Time: 9:57 AM ATTENDING: Ata Toscano MD Spring Coiler Hand: Vasyl Covarrubias MD ASSESSMENT: Admitted with worsening dyspnea HFpEF, moderately severe MR (VIOLA Elsah 07/2023: MR ERO 0.33 cm2, MR volume 67cm.)and mild to moderate AI at [facility], says was being considered for MVR LAY [...] anxiety, back and knee surgeries 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 Requested to [...] lipid microspheres 1.1 mg/mL 1.3 mL injection ([employer]) PHYSICAL EXAM: Body mass index is 33.09 [...] AND Lipase Recent Labs 10/31/23 0537 10/30/23 0510/29/23 042 TPROT 6.0* 6.1* 6.4 ALB 3.9 3.7* 4.2 ALT 11 10 11 AST 12* 11* 13 ALKPHOS 82 82 91 TBILI 0.4 0.5 0.6 Cardiac Enzymes ABGs Last Lab Drawn: Recent Labs 10/29/23427 PBNP 245 Recent Labs 10/29/23427 HSTNT 21* Thank you, Recommendations are communicated [...] patient for (more content not included)... Normal [facility] Comprehensive metabolic 2000 panelon 10-31-2023 Albumin [Mass/Vol] 3.9 g/dL Normal 3.9-4.9 [facility] Comment on above: Order Comment: Speci men Type: BLOOD SPECIMEN Ordering Facility: [facility] Address: [address] [id number] Performed By: #### 5 7021-8 #### [facility] CLIA [id number] [address] [place] [address] [place] ALP [Catalytic activity/Vol] 82 U/L Normal 34-123 [facility] Comment on above: Order Comment: Speci men Type: BLOOD SPECIMEN Ordering Facility: [facility] Address: [address] [place] [address] Performed By: #### 5 7021-8 #### [facility] CLIA [id number] [address] [place] [address] [place] ALT [Catalytic activity/Vol] 11 U/L Normal 7-38 [facility] Comment on above: Order Comment: Speci men Type: BLOOD SPECIMEN Ordering Facility: [facility] Address: [address] [place] [address] Performed By: #### 5 7021-8 #### [facility] CLIA [id number] [address] [place] [address] [place] Anion gap [Moles/Vol] 10 mmol/L Normal 9-18 [facility] Comment on above: Order Comment: Speci men Type: BLOOD SPECIMEN Ordering Facility: [facility] Address: [address] [place] [address] Performed By: #### 5 7021-8 #### [facility] CLIA [id number] [address] [place] [address] [place] AST [Catalytic activity/Vol] 12 U/L Low 13-35 [facility] Comment on above: Order Comment: Speci men Type: BLOOD SPECIMEN Ordering Facility: [facility] Address: [address] [place] [address] Performed By: #### 5 7021-8 #### [facility] CLIA [id number] [address] [place] [address] [place] Bilirubin [Mass/Vol] 0.4 mg/dL Normal 0.2-1.3 [facility] Comment on above: Order Comment: Speci men Type: BLOOD SPECIMEN Ordering Facility: [facility] Address: [address] [place] [address] Performed By: #### 5 7021-8 #### [facility] CLIA [id number] [address] [place] [address] [place] Calcium [Mass/Vol] 9.3 mg/dL Normal 8.5-10.2 [facility] Comment on above: Order Comment: Speci men Type: BLOOD SPECIMEN Ordering Facility: [facility] Address: [address] [place] [address] Performed By: #### 5 7021-8 #### [facility] CLIA [id number] [address] [place] [address] [place] Chloride [Moles/Vol] 106 mmol/L High 97-105 [facility] Comment on above: Order Comment: Speci men Type: BLOOD SPECIMEN Ordering Facility: [facility] Address: [address] [place] [address] Performed By: #### 5 7021-8 #### [facility] CLIA [id number] [address] [place] [address] [place] CO2 [Moles/Vol] 23 mmol/L Normal 22-30 [facility] Comment on above: Order Comment: Speci men Type: BLOOD SPECIMEN Ordering Facility: [facility] Address: [address] [place] [address] Performed By: #### 5 7021-8 #### [facility] CLIA [id number] [address] [place] [address] [place] Creatinine [Mass/Vol] 1.42 mg/dL High 0.58-0.96 [facility] Comment on above: Order Comment: Speci men Type: BLOOD SPECIMEN Ordering Facility: [facility] Address: [address] [place] [address] Performed By: #### 5 7021-8 #### [facility] CLIA [id number] [address] [place] [address] [place] Creatinine and Glomerular filtration rate.predicted panel (S/P/Bld) 38 mL/min/1.73m??? Low >=60 [facility] Comment on above: Order Comment: Speci men Type: BLOOD SPECIMEN Ordering Facility: [facility] Address: [address] [place] [address] Result Comment: Amy mated Glomerular Filtration Rate [...] GFR. Performed By: #### 5 7021-8 #### [facility] CLIA [id number] [address] [place] [address] [place] Glucose [Mass/Vol] 96 mg/dL Normal 74-99 [facility] Comment on above: Order Comment: Tremayne bill Type: BLOOD SPECIMEN Ordering Facility: [facility] Address: [address] [place] [address] Result Comment: The [place] Diabetes Association (ADA) provides guidance for cutoff [...] Standards of Medical Care in Diabetes 2016, [place] [employer] Association. Diabetes Care. 2016.39(Suppl 1). Performed By: #### 5 7021-8 #### [facility] CLIA [id number] [address] [place] [address] [place] Potassium [Moles/Vol] 4.4 mmol/L Normal 3.7-5.1 [facility] Comment on above: Order Comment: Tremayne bill Type: BLOOD SPECIMEN Ordering Facility: [facility] Address: [address] [id number] Performed By: #### 5 7021-8 #### [facility] CLIA [id number] [address] [place] [address] [place] Protein [Mass/Vol] 6.0 g/dL Low 6.3-8.0 [facility] Comment on above: Order Comment: Tremayne men Type: BLOOD SPECIMEN Ordering Facility: [facility] Address: [address] [place] [address] Performed By: #### 5 7021-8 #### [facility] CLIA [id number] [address] [place] [address] [place] Sodium [Moles/Vol] 139 mmol/L Normal 136-144 [facility] Comment on above: Order Comment: Speci men Type: BLOOD SPECIMEN Ordering Facility: [facility] Address: [address] [place] [address] Performed By: #### 5 7021-8 #### [facility] CLIA [id number] [place] [address] [place] Urea nitrogen [Mass/Vol] 33 mg/dL High 02-28 [facility] Comment on above: Order Comment: Speci men Type: BLOOD SPECIMEN Ordering Facility: [facility] Address: [address] [place] [address] Performed By: #### 5 7021-8 #### [facility] CLIA [id number] [address] [place] [address] [place] Lipid 1996 panelon 4 Cholesterol [Mass/Vol] 112 mg/dL Normal <200 [facility] Comment on above: Order Comment: Speci men Type: BLOOD SPECIMEN Ordering Facility: [facility] Address: [address] [place] [address] Result Comment: <200 mg/dL, Desirable 200-239 mg/dL, Borderline high >239 mg/dL, High Performed By: #### 5 7021-8 #### [facility] CLIA [id number] [address] [place] [address] [place] Cholesterol in HDL [Mass/Vol] 52 mg/dL Normal >39 [facility] Comment on above: Order Comment: Speci men Type: BLOOD SPECIMEN Ordering Facility: [facility] Address: [address] [place] [address] Result Comment: 40-5 9 mg/dL, Acceptable >59 mg/dL, High: Negative risk factor for coronary heart disease <40 mg/dL, Low: Positive risk factor for coronary heart disease Performed By: #### 5 7021-8 #### [facility] CLIA [id number] [address] [place] [address] [place] [facility] Cholesterol in LDL [Mass/Vol] 37 mg/dL Normal <100 [facility] Comment on above: Order Comment: Speci men Type: BLOOD SPECIMEN Ordering Facility: [facility] Address: [address] [place] [address] Result Comment: <100 mg/dL, Optimal 100-129 mg/dL, Near optimal/above optimal 130-159 mg/dL, Borderline high 160-189 mg/dL, High >189 mg/dL, Very high Secondary prevention optimal LDL Cholesterol levels are recommended to be < 70 mg/dL Performed By: #### 5 7021-8 #### [facility] CLIA [id number] [address] [place] [address] [place] Cholesterol in LDL/Cholesterol in HDL [Mass ratio] 0.71 {ratio} Normal <2.54 [facility] Comment on above: Order Comment: Zaki men Type: BLOOD SPECIMEN Ordering Facility: [facility] Address: [address] [place] [address] Result Comment: Refe rence: 1. National Cholesterol Education Program ATP III Guideline At-A-Glance Quick Desk Reference: National Heart, Lung, and Blood [place]. National Institutes of Health. 2001: NIH Publication No. 01-3305. 2. An International Atherosclerosis Society position paper: global recommendations for the management of dyslipidemia: executive summary, Atherosclerosis. 2014: 232(2):410-413. Performed By: #### 5 7021-8 #### [facility] CLIA [id number] [address] [place] [address] [place] Cholesterol in VLDL [Mass/Vol] 23 mg/dL Normal <30 [facility] Comment on above: Order Comment: Speci men Type: BLOOD SPECIMEN Ordering Facility: [facility] Address: [address] [place] [address] Performed By: #### 5 7021-8 #### [facility] CLIA [id number] [address] [place] [address] [place] Cholesterol non HDL [Mass/Vol] 60 mg/dL Normal <130 [facility] Comment on above: Order Comment: Speci men Type: BLOOD SPECIMEN Ordering Facility: [facility] Address: [address] [place] [address] Result Comment: <130 mg/dL, Optimal 130-159 mg/dL, Near optimal/above optimal 160-189 mg/dL, Borderline high 190-219 mg/dL, High >219 mg/dL, Very high Secondary prevention optimal non HDL Cholesterol levels are recommended to be <100 mg/dL Performed By: #### 5 7021-8 #### [facility] CLIA [id number] [address] [place] [address] Cholesterol.total/Chol esterol in HDL [Mass ratio] 2.15 {ratio} Normal <5.10 [facility] Comment on above: Order Comment: Zakclara bill Type: BLOOD SPECIMEN Ordering Facility: [facility] Address: [address] [place] [address] Performed By: #### 5 7021-8 #### [facility] CLIA [id number] [address] [place] [address] [place] FASTING TIME Normal [facility] Comment on above: Order Comment: Zakclara bill Type: BLOOD SPECIMEN Ordering Facility: [facility] Address: [address] [place] [address] Result Comment: Unkn own Performed By: #### 5 7021-8 #### [facility] CLIA [id number] [address] [place] [address] [place] Triglyceride [Mass/Vol] 115 mg/dL Normal <150 [facility] Comment on above: Order Comment: Tremayne bill Type: BLOOD SPECIMEN Ordering Facility: [facility] Address: [address] [place] [address] Result Comment: <150 mg/dL, Normal 150-199 mg/dL, Borderline high 200-499 mg/dL, High >499 mg/dL, Very high Performed By: #### 5 7021-8 #### [facility] CLIA [id number] [address] [place] [address] [place] NURSING PROGon 10-31-2023 NURSING PROG HNO ID: [id number] Author: Cortez AZEVEDO RN Service: Nursing Author Type: Registered Nurse Type: Nursing Progress Note Filed: 10/31/2023 22:01 Note Text: 2150: The following text page was sent to House: Brittani in GY0C-71 has bruising around right groin cath site. The area is soft AND patient denies pain. There is a small amount of old blood under the dressing. -[facility] #[id number] 2200: FROY Carlin, at bedside. This RN instructed to continue to monitor and notify House if any changes. [facility] NURSING PROG HNO ID: [id number] Author: TANG WILLETT, RN Service: Nursing Author Type: Registered Nurse [...] 0955 - call received from Ashley in quality lab technician for hand off; all questions asked were answered; d/t patient having eliquis Ashley states that she wants to verify with Dr. Covarrubias that it is ok that patient had eliquis 1025 - patient left for quality lab technician 1200 - report received from quality lab technician from [place]; patient had right wrist radial and right groin venous; other details listed in notes from quality lab technician in regards to medication and process to [...] that was verified that she didn't receive. 180 - Dr. Covarrubias called in to speak to patient; call transferred. [facility] NURSING PROG HNO ID: [id number] Author: ULINE, GILES, RN Service: Nursing Author Type: Registered Nurse [...] or hematoma. Pulses present. 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 Pulse present. Right [...] hematoma, ok to return patient back to [facility] per Dr Covarrubias. 1405 TR band removed [...] no hematoma, ok to transport patient to [facility] at 1600. 1530 Pt sitting up in bed; denies dizziness or lightheadedness. Right groin site remains free of bleeding or hematoma. No voiced complaints at this time. 1600 Treva Martinez NP at bedside to reevaluate patient. No bleeding or hematoma noted to right groin. Dressing to right radial site dry and intact; no bleeding or hematoma noted. Ok to transport pt back to [facility]. 1610 Report called to VIKTOR Aguilar. Update provided to Dr Covarrubias. 1615 Pt transported back to [facility] via bed. [facility] OPERATIVE NOon 10-31-2023 OPERATIVE NO HNO ID: [id number] Author: VASYL COVARRUBIAS MD Service: Cardiovascular Medicine Author Type: Physician Type: Operative Report Filed: 10/31/2023 18:31 Note Text: DRILL PRESS SET UP OPERATOR PROCEDURE REPORT SERVICE DATE: 10/31/2023 SERVICE TIME: 11:00 AM SHEET PILE HAMMER OPERATOR: Vasyl Covarrubias MD ATTENDING: Ata Toscano MD PRIMARY CARE PHYSICIAN: Demarco Newell MD REFERRING PROVIDER: CZECH STUDY OF HEALTH and AGING SCALE:4=Vulnerable CARDIOVASCULAR INSTABILITY:No PRE-PROCEDURE DIAGNOSIS: Anginal Equivalent Valvular Heart Disease POST PROCEDURE DIAGNOSIS: [place] Coronary Artery Disease Moderate 70% in-stent restenosis [...] The patient was taken to the cardiac quality lab technician where the entry site was prepped and [...] percutaneously over the wire using a S-Tipped [place] Kiran catheter. The catheter was advanced under [...] October 31, 2023 TIME: 12:00 PM Normal [facility] T3Free SerPl-mCncon 10-31-19 24 Free T3 [Mass/Vol] 2.5 pg/mL Normal 2.3-4.1 [facility] Comment on above: Order Comment: Speci men Type: BLOOD SPECIMEN Ordering Facility: [facility] Address: [address] [place] [address] Performed By: #### 5 7021-8 #### [facility] CLIA [id number] [address] [place] [address] [place] T4 Free SerPl-mCncon 024 Free T4 [Mass/Vol] 1.0 ng/dL Normal 0.9-1.7 [facility] Comment on above: Order Comment: Speci men Type: BLOOD SPECIMEN Ordering Facility: [facility] Address: [address] [place] [address] Performed By: #### 5 7021-8 #### [facility] CLIA [id number] [address] [place] [address] [place] CBC W Auto Differential pane l (Bld)on 10-30-2023 Basophils (Bld) [#/Vol] 0.05 10*3/uL Normal <0.11 [facility] Comment on above: Order Comment: Speci men Type: BLOOD SPECIMEN Ordering Facility: [facility] Address: [address] [place] [address] Performed By: #### 5 7021-8 #### [facility] CLIA [id number] [address] [place] [address] [place] Basophils/100 WBC (Bld) 0.8 % Normal [facility] Comment on above: Order Comment: Speci men Type: BLOOD SPECIMEN Ordering Facility: [facility] Address: [address] [place] [address] Performed By: #### 5 7021-8 #### [facility] CLIA [id number] [address] [place] [address] [place] Differential cell count method Nom (Bld) Auto Normal [facility] Comment on above: Order Comment: Speci men Type: BLOOD SPECIMEN Ordering Facility: [facility] Address: [address] [place] [address] Performed By: #### 5 7021-8 #### [facility] CLIA [id number] [address] [place] [address] [place] Eosinophils (Bld) [#/Vol] 0.20 10*3/uL Normal <0.46 [facility] Comment on above: Order Comment: Speci men Type: BLOOD SPECIMEN Ordering Facility: [facility] Address: [address] [place] [address] Performed By: #### 5 7021-8 #### [facility] CLIA [id number] [address] [place] [address] [place] Eosinophils/100 WBC (Bld) 3.2 % Normal [facility] Comment on above: Order Comment: Speci men Type: BLOOD SPECIMEN Ordering Facility: [facility] Address: [address] [place] [address] Performed By: #### 5 7021-8 #### [facility] CLIA [id number] [address] [place] [address] [place] Erythrocyte distribution width (RBC) [Ratio] 13.2 % Normal 11.5-15.0 [facility] Comment on above: Order Comment: Speci men Type: BLOOD SPECIMEN Ordering Facility: [facility] Address: [address] [place] [address] Performed By: #### 5 7021-8 #### [facility] CLIA [id number] [address] [place] [address] [place] Hematocrit (Bld) [Volume fraction] 36.8 % Normal 36.0-46.0 [facility] Comment on above: Order Comment: Speci men Type: BLOOD SPECIMEN Ordering Facility: [facility] Address: [address] [place] [address] Performed By: #### 5 7021-8 #### [facility] CLIA [id number] [address] [place] [address] [place] Hemoglobin (Bld) [Mass/Vol] 12.3 g/dL Normal 11.5-15.5 [facility] Comment on above: Order Comment: Speci men Type: BLOOD SPECIMEN Ordering Facility: [facility] Address: [address] [place] [address] Performed By: #### 5 7021-8 #### [facility] CLIA [id number] [address] [place] [address] [place] Immature granulocytes (Bld) [#/Vol] 10*3/uL Normal <0.10 [facility] Comment on above: Order Comment: Speci men Type: BLOOD SPECIMEN Ordering Facility: [facility] Address: [address] [place] [address] Performed By: #### 5 7021-8 #### [facility] CLIA [id number] [address] [place] [address] [place] Immature granulocytes/100 WBC (Bld) 0.3 % Normal [facility] Comment on above: Order Comment: Speci men Type: BLOOD SPECIMEN Ordering Facility: [facility] Address: [address] [place] [address] Performed By: #### 5 7021-8 #### [facility] CLIA [id number] [address] [place] [address] [place] Lymphocytes (Bld) [#/Vol] 1.91 10*3/uL Normal 1.00-4.00 [facility] Comment on above: Order Comment: Speci men Type: BLOOD SPECIMEN Ordering Facility: [facility] Address: [address] [place] [address] Performed By: #### 5 7021-8 #### [facility] CLIA [id number] [address] [place] [address] Lymphocytes/100 WBC (Bld) 30.9 % Normal [facility] Comment on above: Order Comment: Speci men Type: BLOOD SPECIMEN Ordering Facility: [facility] Address: [address] [place] [address] Performed By: #### 5 7021-8 #### [facility] CLIA [id number] [address] [place] [address] [place] MCH (RBC) [Entitic mass] 31.7 pg Normal 26.0-34.0 [facility] Comment on above: Order Comment: Speci men Type: BLOOD SPECIMEN Ordering Facility: [facility] Address: [address] [place] [address] Performed By: #### 5 7021-8 #### [facility] CLIA [id number] [address] [place] [address] [place] MCHC (RBC) [Mass/Vol] 33.4 g/dL Normal 30.5-36.0 [facility] Comment on above: Order Comment: Speci men Type: BLOOD SPECIMEN Ordering Facility: [facility] Address: [address] [place] [address] Performed By: #### 5 7021-8 #### [facility] CLIA [id number] [address] [place] [address] [place] MCV (RBC) [Entitic vol] 94.8 fL Normal 80.0-100.0 [facility] Comment on above: Order Comment: Speci men Type: BLOOD SPECIMEN Ordering Facility: [facility] Address: [address] [place] [address] Performed By: #### 5 7021-8 #### [facility] CLIA [id number] [address] [place] [address] [place] Monocytes (Bld) [#/Vol] 0.74 10*3/uL Normal <0.87 [facility] Comment on above: Order Comment: Speci men Type: BLOOD SPECIMEN Ordering Facility: [facility] Address: [address] [place] [address] Performed By: #### 5 7021-8 #### [facility] CLIA [id number] [address] [place] [address] [place] Monocytes/100 WBC (Bld) 12.0 % Normal [facility] Comment on above: Order Comment: Speci men Type: BLOOD SPECIMEN Ordering Facility: [facility] Address: [address] [place] [address] Performed By: #### 5 7021-8 #### [facility] CLIA [id number] [address] [place] [address] [place] Neutrophils (Bld) [#/Vol] 3.27 10*3/uL Normal 1.45-7.50 [facility] Comment on above: Order Comment: Speci men Type: BLOOD SPECIMEN Ordering Facility: [facility] Address: [address] [place] [address] Performed By: #### 5 7021-8 #### [facility] CLIA [id number] [address] [place] [address] [place] Neutrophils/100 WBC (Bld) 52.8 % Normal [facility] Comment on above: Order Comment: Speci men Type: BLOOD SPECIMEN Ordering Facility: [facility] Address: [address] [place] [address] Performed By: #### 5 7021-8 #### [facility] CLIA [id number] [address] [place] [address] [place] Nucleated RBC (Bld) [#/Vol] 10*3/uL Normal <0.01 [facility] Comment on above: Order Comment: Speci men Type: BLOOD SPECIMEN Ordering Facility: [facility] Address: [address] [place] [address] Performed By: #### 5 7021-8 #### [facility] CLIA [id number] [address] [place] [address] [place] Nucleated RBC/100 WBC (Bld) [Ratio] 0.0 /100 WBC Normal [facility] Comment on above: Order Comment: Speci men Type: BLOOD SPECIMEN Ordering Facility: [facility] Address: [address] [place] [address] Performed By: #### 5 7021-8 #### [facility] CLIA [id number] [address] [place] [address] [place] Platelet mean volume (Bld) [Entitic vol] 11.3 fL Normal 9.0-12.7 [facility] Comment on above: Order Comment: Speci men Type: BLOOD SPECIMEN Ordering Facility: [facility] Address: [address] [place] [address] Performed By: #### 5 7021-8 #### [facility] CLIA [id number] [address] [place] [address] [place] Platelets (Bld) [#/Vol] 180 10*3/uL Normal 150-400 [facility] Comment on above: Order Comment: Speci men Type: BLOOD SPECIMEN Ordering Facility: [facility] Address: [address] [place] [address] Performed By: #### 5 7021-8 #### [facility] CLIA [id number] [address] [place] [address] [place] RBC (Bld) [#/Vol] 3.88 10*6/uL Low 3.90-5.20 [facility] Comment on above: Order Comment: Speci men Type: BLOOD SPECIMEN Ordering Facility: [facility] Address: [address] [place] [address] Performed By: #### 5 7021-8 #### [facility] CLIA [id number] [address] [place] [address] [place] WBC (Bld) [#/Vol] 6.19 10*3/uL Normal 3.70-11.00 [facility] Comment on above: Order Comment: Speci men Type: BLOOD SPECIMEN Ordering Facility: [facility] Address: [address] [place] [address] Performed By: #### 5 7021-8 #### [facility] CLIA [id number] [address] [place] [address] CONSULT PROGon 10-30-2023 CONSULT PROG HNO ID: [id number] Author: MCKENZIE THAKKAR MD Service: Nephrology Author [...] October 30, 2023 TIME: 2:56 PM PAGER: [facility] CONSULT PROG HNO ID: [id number] Author: VASYL COVARRUBIAS MD Service: Cardiovascular Medicine Author Type: Physician Type: Consult Progress Note Filed: 10/31/2023 07:02 Note Text: CARDIOLOGY CONSULT PROGRESS NOTE SERVICE DATE: 10/30/2023 Time: 9:14 AM ATTENDING: Ata Toscano MD [place] Hand: Vasyl Covarrubias MD ASSESSMENT: Admitted with worsening dyspnea HFpEF, moderately severe MR ([facility] 07/2023: MR ERO 0.33 cm2, MR volume 67cm.)and mild to moderate AI at [facility], says was being considered for MVR LAY on CKD Paroxysmal A-fib diagnosed 1 month ago started amiodarone AC Eliquis CAD PCI LAD Synergy 03/2022 ; PCI RCA Synergy 3.0 x 20 in 05/2020, [place] stress test reported normal 07/2023 Hypertension Hyperlipidemia, at home on statin Thyroid disease, BMI 32, GERD, depression anxiety, back and knee surgeries Card meds [employer]: Eliquis 5 twice daily, losartan 100 daily, Imdur 30 daily, hydralazine 25 twice daily, Lasix 20 daily, K-Dur 10 daily, Lipitor 40 daily RECOMMENDATIONS: Okay to go home Outpatient heart cath Discussed with pt and with nursing staff. VITAL SIGNS (last recorded): 10/29/23 1907 10/29/23203210/30/23 0441 10/30/23 0734 BP: 108/73 125/69 142/50 Pulse: (!) 59 (!) 54 (!) 57 Resp: 18 16 18 Temp: 36.3 ?C (97.3 ?F) 36.5 [...] lipid microspheres 1.1 mg/mL 1.3 mL injection (DEFINPoppin) PHYSICAL EXAM: Body mass index is 33.09 kg/m?. Awake, alert LUNGS: Decreased BSs bilaterally. CARDIAC: S1 and S2 systolic murmur EXTREMITIES: No edema. DATA: Diagnostic tests reviewed for today's visit: Reviewed recent relevant labs, EKG and imaging results. CBC, Coags, BMP, Mg, Phos Recent Labs 10/30/23 0510/29/238 10/28/23 0549 WBC 6.19 6.30 6.06 HB [...] Recent Labs 10/29/23427 PBNP 245 Recent Labs 10/29/23427 HSTNT 21* Thank you, Recommendations are communicated via shared electronic medical records. This note was partially generated using voice recognition system, there may be some incorrect words, spellings, and punctuation that were not noted in checking the note before saving. SIGNATURE: Vasyl Covarrubias MD PATIENT NAME: Cece Hubbard DATE: 10/30/2023 TIME: 9:14 AM call 24 hour service line Normal [facility] Comprehensive metabolic 2000 panelon 10-30-2023 Albumin [Mass/Vol] 3.7 g/dL Low 3.9-4.9 [facility] Comment on above: Order Comment: Speci men Type: BLOOD SPECIMEN Ordering Facility: [facility] Address: [address] [place] [address] Performed By: #### 5 7021-8 #### [facility] CLIA [id number] [address] [place] [address] [place] ALP [Catalytic activity/Vol] 82 U/L Normal 34-123 [facility] Comment on above: Order Comment: Speci men Type: BLOOD SPECIMEN Ordering Facility: [facility] Address: [address] [place] [address] Performed By: #### 5 7021-8 #### [facility] CLIA [id number] [address] [place] [address] [place] ALT [Catalytic activity/Vol] 10 U/L Normal 7-38 [facility] Comment on above: Order Comment: Speci men Type: BLOOD SPECIMEN Ordering Facility: [facility] Address: [address] [place] [address] Performed By: #### 5 7021-8 #### [facility] CLIA [id number] [address] [place] [address] [place] Anion gap [Moles/Vol] 11 mmol/L Normal 9-18 [facility] Comment on above: Order Comment: Speci men Type: BLOOD SPECIMEN Ordering Facility: [facility] Address: [address] [place] [address] Performed By: #### 5 7021-8 #### [facility] CLIA [id number] [address] [place] [address] [place] AST [Catalytic activity/Vol] 11 U/L Low 13-35 [facility] Comment on above: Order Comment: Speci men Type: BLOOD SPECIMEN Ordering Facility: [facility] Address: [address] [place] [address] Performed By: #### 5 7021-8 #### [facility] CLIA [id number] [address] [place] [address] [place] Bilirubin [Mass/Vol] 0.5 mg/dL Normal 0.2-1.3 [facility] Comment on above: Order Comment: Speci men Type: BLOOD SPECIMEN Ordering Facility: [facility] Address: [address] [place] [address] Performed By: #### 5 7021-8 #### [facility] CLIA [id number] [address] [place] [address] [place] Calcium [Mass/Vol] 9.2 mg/dL Normal 8.5-10.2 [facility] Comment on above: Order Comment: Speci men Type: BLOOD SPECIMEN Ordering Facility: [facility] Address: [address] [place] [address] Performed By: #### 5 7021-8 #### [facility] CLIA [id number] [address] [place] [address] [place] Chloride [Moles/Vol] 105 mmol/L Normal 97-105 [facility] Comment on above: Order Comment: Speci men Type: BLOOD SPECIMEN Ordering Facility: [facility] Address: [address] [place] [address] Performed By: #### 5 7021-8 #### [facility] CLIA [id number] [place] [address] [place] CO2 [Moles/Vol] 23 mmol/L Normal 22-30 [facility] Comment on above: Order Comment: Speci men Type: BLOOD SPECIMEN Ordering Facility: [facility] Address: [address] [place] [address] Performed By: #### 5 7021-8 #### [facility] CLIA [id number] [address] [place] [address] [place] Creatinine [Mass/Vol] 1.53 mg/dL High 0.58-0.96 [facility] Comment on above: Order Comment: Tremayne bill Type: BLOOD SPECIMEN Ordering Facility: [facility] Address: [address] [place] [address] Performed By: #### 5 7021-8 #### [facility] CLIA [id number] [address] [place] [address] [place] Creatinine and Glomerular filtration rate.predicted panel (S/P/Bld) 35 mL/min/1.73m??? Low >=60 [facility] Comment on above: Order Comment: Tremayne bill Type: BLOOD SPECIMEN Ordering Facility: [facility] Address: [address] [place] [address] Result Comment: Amy mated Glomerular Filtration Rate [...] GFR. Performed By: #### 5 7021-8 #### [facility] CLIA [id number] [address] [place] [address] [place] Glucose [Mass/Vol] 95 mg/dL Normal 74-99 [facility] Comment on above: Order Comment: Tremayne fly Type: BLOOD SPECIMEN Ordering Facility: [facility] Address: [address] [place] [address] Result Comment: The [place] [employer] Association (ADA) provides guidance for cutoff [...] Standards of Medical Care in Diabetes 2016, [place] [employer]. Diabetes Care. 2016.39(Suppl 1). Performed By: #### 5 7021-8 #### [facility] CLIA [id number] [address] [place] [address] [place] Potassium [Moles/Vol] 4.3 mmol/L Normal 3.7-5.1 [facility] Comment on above: Order Comment: Speci men Type: BLOOD SPECIMEN Ordering Facility: [facility] Address: [address] [place] [address] Performed By: #### 5 7021-8 #### [facility] CLIA [id number] [address] [place] [address] [place] Protein [Mass/Vol] 6.1 g/dL Low 6.3-8.0 [facility] Comment on above: Order Comment: Speci men Type: BLOOD SPECIMEN Ordering Facility: [facility] Address: [address] [place] [address] Performed By: #### 5 7021-8 #### [facility] CLIA [id number] [address] [place] [address] [place] Sodium [Moles/Vol] 139 mmol/L Normal 136-144 [facility] Comment on above: Order Comment: Speci men Type: BLOOD SPECIMEN Ordering Facility: [facility] Address: [address] [place] [address] Performed By: #### 5 7021-8 #### [facility] CLIA [id number] [address] [place] [address] [place] Urea nitrogen [Mass/Vol] 32 mg/dL High 7- [facility] Comment on above: Order Comment: Speci men Type: BLOOD SPECIMEN Ordering Facility: [facility] Address: [address] [place] [address] Performed By: #### 5 7021-8 #### [facility] CLIA [id number] [address] [place] [address] [place] Magnesium SerPl-mCncon 10-29 Magnesium [Mass/Vol] 2.1 mg/dL Normal 1.7-2.3 [facility] Comment on above: Order Comment: Speci men Type: BLOOD SPECIMEN Ordering Facility: [facility] Address: [address] [place] [address] Performed By: #### 5 7021-8 #### [facility] CLIA [id number] [address] [place] [id number] [place] CBC W Auto Differential pane l (Bld)on 10-29-2023 Basophils (Bld) [#/Vol] 0.06 10*3/uL Normal <0.11 [facility] Comment on above: Order Comment: Speci men Type: BLOOD SPECIMENOrdering Facility: [facility] Address: [address] [place] [address] Performed By: #### 5 7021-8 ####[facility] [id number] [place] [address] [place] Basophils/100 WBC (Bld) 1.0 % Normal [facility] Comment on above: Order Comment: Speci men Type: BLOOD SPECIMENOrdering Facility: [facility] Address: [address] [place] [address] Performed By: #### 5 7021-8 ####[facility] [id number] [place] [id number] [place] Differential cell count method Nom (Bld) Auto Normal [facility] Comment on above: Order Comment: Speci men Type: BLOOD SPECIMENOrdering Facility: [facility] Address: [address] [place] [address] Performed By: #### 5 7021-8 ####[facility] [id number] [place] [id number] [place] Eosinophils (Bld) [#/Vol] 0.17 10*3/uL Normal <0.46 [facility] Comment on above: Order Comment: Speci men Type: BLOOD SPECIMENOrdering Facility: [facility] Address: [address] [place] [address] Performed By: #### 5 7021-8 ####[facility] [id number] [place] [address] [place] Eosinophils/100 WBC (Bld) 2.7 % Normal [facility] Comment on above: Order Comment: Speci men Type: BLOOD SPECIMENOrdering Facility: [facility] Address: [address] [place] [address] Performed By: #### 5 7021-8 ####[facility] [id number] [place] [address] [place] Erythrocyte distribution width (RBC) [Ratio] 13.0 % Normal 11.5-15.0 [facility] Comment on above: Order Comment: Speci men Type: BLOOD SPECIMENOrdering Facility: [facility] Address: [address] [place] [address] Performed By: #### 5 7021-8 ####[facility] [id number] [place] [address] [place] Hematocrit (Bld) [Volume fraction] 37.0 % Normal 36.0-46.0 [facility] Comment on above: Order Comment: Speci men Type: BLOOD SPECIMENOrdering Facility: [facility] Address: [address] [place] [address] Performed By: #### 5 7021-8 ####[facility] [id number] [place] [address] [place] Hemoglobin (Bld) [Mass/Vol] 12.6 g/dL Normal 11.5-15.5 [facility] Comment on above: Order Comment: Speci men Type: BLOOD SPECIMENOrdering Facility: [facility] Address: [address] [place] [address] Performed By: #### 5 7021-8 ####[facility] [id number] [place] [address] [place] Immature granulocytes (Bld) [#/Vol] 10*3/uL Normal <0.10 [facility] Comment on above: Order Comment: Speci men Type: BLOOD SPECIMENOrdering Facility: [facility] Address: [facility] [place] [address] Performed By: #### 5 7021-8 ####[facility]CLIA [id number] [place] [id number] [place] [facility] Immature granulocytes/100 WBC (Bld) 0.3 % Normal [facility] Comment on above: Order Comment: Speci men Type: BLOOD SPECIMENOrdering Facility: [facility] Address: [address] [place] [address] Performed By: #### 5 7021-8 ####[facility]CLIA [id number] [place] [address] [place] Lymphocytes (Bld) [#/Vol] 1.70 10*3/uL Normal 1.00-4.00 [facility] Comment on above: Order Comment: Speci men Type: BLOOD SPECIMENOrdering Facility: [facility] Address: [address] [place] [address] Performed By: #### 5 7021-8 ####[facility]ORYCLIA [id number] [address] [place] Lymphocytes/100 WBC (Bld) 27.0 % Normal [facility] Comment on above: Order Comment: Speci men Type: BLOOD SPECIMENOrdering Facility: [facility] Address: [address] [place] [address] Performed By: #### 5 7021-8 ####[facility] [id number] [place] [id number] [place] MCH (RBC) [Entitic mass] 31.8 pg Normal 26.0-34.0 [facility] Comment on above: Order Comment: Speci men Type: BLOOD SPECIMENOrdering Facility: [facility] Address: [address] [place] [address] Performed By: #### 5 7021-8 ####[facility]ORYCLIA [id number] [place] [id number] [place] MCHC (RBC) [Mass/Vol] 34.1 g/dL Normal 30.5-36.0 [facility] Comment on above: Order Comment: Speci men Type: BLOOD SPECIMENOrdering Facility: [facility] Address: [address] [place] [address] Performed By: #### 5 7021-8 ####[facility] [id number] [place] [id number] [place] MCV (RBC) [Entitic vol] 93.4 fL Normal 80.0-100.0 [facility] Comment on above: Order Comment: Speci men Type: BLOOD SPECIMENOrdering Facility: [facility] Address: [address] [place] [address] Performed By: #### 5 7021-8 ####[facility]ORYCLIA [id number] [place] [address] [place] Monocytes (Bld) [#/Vol] 0.71 10*3/uL Normal <0.87 [facility] Comment on above: Order Comment: Speci men Type: BLOOD SPECIMENOrdering Facility: [facility] Address: [address] [place] [address] Performed By: #### 5 7021-8 ####[facility]ORYCLIA [id number] [place] [address] [place] Monocytes/100 WBC (Bld) 11.3 % Normal [facility] Comment on above: Order Comment: Speci men Type: BLOOD SPECIMENOrdering Facility: [facility] Address: [address] [place] [address] Performed By: #### 5 7021-8 ####[facility]ORYCLIA [id number] [place] [address] [place] Neutrophils (Bld) [#/Vol] 3.64 10*3/uL Normal 1.45-7.50 [facility] Comment on above: Order Comment: Speci men Type: BLOOD SPECIMENOrdering Facility: [facility] Address: [address] [place] [address] Performed By: #### 5 7021-8 ####[facility]ORYCLIA [id number] [place] [address] [place] Neutrophils/100 WBC (Bld) 57.7 % Normal [facility] Comment on above: Order Comment: Speci men Type: BLOOD SPECIMENOrdering Facility: [facility] Address: [address] [place] [address] Performed By: #### 5 7021-8 ####[facility]ORYCLIA [id number] [place] [id number] [place] Nucleated RBC (Bld) [#/Vol] 10*3/uL Normal <0.01 [facility] Comment on above: Order Comment: Speci men Type: BLOOD SPECIMENOrdering Facility: [facility] Address: [address] [place] [address] Performed By: #### 5 7021-8 ####[facility]ORYCLIA [id number] [place] [address] [place] Nucleated RBC/100 WBC (Bld) [Ratio] 0.0 /100 WBC Normal [facility] Comment on above: Order Comment: Speci men Type: BLOOD SPECIMENOrdering Facility: [facility] Address: [address] [place] [address] Performed By: #### 5 7021-8 ####[facility]ORYCLIA [id number] [place] [address] [place] Platelet mean volume (Bld) [Entitic vol] 11.1 fL Normal 9.0-12.7 [facility] Comment on above: Order Comment: Speci men Type: BLOOD SPECIMENOrdering Facility: [facility] Address: [address] [place] [address] Performed By: #### 5 7021-8 ####[facility]ATORYCLIA [id number] [place] [id number] [place] Platelets (Bld) [#/Vol] 178 10*3/uL Normal 150-400 [facility] Comment on above: Order Comment: Speci men Type: BLOOD SPECIMENOrdering Facility: [facility] Address: [address] [place] [address] Performed By: #### 5 7021-8 ####[facility] [id number] [place] [address] [place] RBC (Bld) [#/Vol] 3.96 10*6/uL Normal 3.90-5.20 [facility] Comment on above: Order Comment: Speci men Type: BLOOD SPECIMENOrdering Facility: [facility] Address: [address] [place] [address] Performed By: #### 5 7021-8 ####[facility] [id number] [place] [id number] [facility] WBC (Bld) [#/Vol] 6.30 10*3/uL Normal 3.70-11.00 [facility] Comment on above: Order Comment: Speci men Type: BLOOD SPECIMENOrdering Facility: [facility] Address: [address] [place] [address] Performed By: #### 5 7021-8 ####[facility] [id number] [place] [id number] [facility] CONSULTon 10-29-2023 CONSULT HNO ID: [id number] Author: MCKENZIE THAKKAR MD Service: Nephrology Author [...] AF diagnosis about 1 month ago at [facility] and started on amiodarone and Eliquis. Creatinine [...] 29, 2023 TIME: 8:50 AM PAGER: Normal [facility] Comprehensive metabolic 2000 panelon 10-29-2023 Albumin [Mass/Vol] 4.2 g/dL Normal 3.9-4.9 [facility] Comment on above: Order Comment: Speci fly Type: BLOOD SPECIMENOrdering Facility: [facility] Address: [address] [place] [address] Performed By: #### 3 3762-6, [id number], 30552-8 ####[facility] [id number] [place] [id number] [place] ALP [Catalytic activity/Vol] 91 U/L Normal 34-123 [facility] Comment on above: Order Comment: Tremayne bill Type: BLOOD SPECIMENOrdering Facility: [facility] Address: [address] [place] [address] Performed By: #### 3 3762-6, [id number], 24061-4 ####[facility] [id number] [place] [id number] [place] ALT [Catalytic activity/Vol] 11 U/L Normal 7-38 [facility] Comment on above: Order Comment: Speci men Type: BLOOD SPECIMENOrdering Facility: [facility] Address: [address] [place] [address] Performed By: #### 3 3762-6, [id number], 33943-1 ####[facility] [id number] [place] [id number] [place] Anion gap [Moles/Vol] 12 mmol/L Normal 9-18 [facility] Comment on above: Order Comment: Speci men Type: BLOOD SPECIMENOrdering Facility: [facility] Address: [address] [place] [address] Performed By: #### 3 3762-6, [id number], 67064-1 ####[facility]ATORYCLIA [id number] [place] [address] [place] AST [Catalytic activity/Vol] 13 U/L Normal 13-35 [facility] Comment on above: Order Comment: Speci men Type: BLOOD SPECIMENOrdering Facility: [facility] Address: [address] [place] [address] Performed By: #### 3 3762-6, [id number], 34838-5 ####[facility]ORYCLIA [id number] [place] [id number] [place] Bilirubin [Mass/Vol] 0.6 mg/dL Normal 0.2-1.3 [facility] Comment on above: Order Comment: Speci men Type: BLOOD SPECIMENOrdering Facility: [facility] Address: [address] [place] [address] Performed By: #### 3 3762-6, [id number], 75106-8 ####[facility]ORYCLIA [id number] [place] [id number] [place] Calcium [Mass/Vol] 9.4 mg/dL Normal 8.5-10.2 [facility] Comment on above: Order Comment: Speci men Type: BLOOD SPECIMENOrdering Facility: [facility] Address: [address] [place] [address] Performed By: #### 3 3762-6, [id number], 11976-0 ####[facility]ORYCLIA [id number] [place] [id number] [place] Chloride [Moles/Vol] 99 mmol/L Normal 97-105 [facility] Comment on above: Order Comment: Speci men Type: BLOOD SPECIMENOrdering Facility: [facility] Address: [address] [place] [address] Performed By: #### 3 3762-6, [id number], 52284-0 ####[facility]ORYCLIA [id number] [place] [address] [place] CO2 [Moles/Vol] 27 mmol/L Normal 22-30 [facility] Comment on above: Order Comment: Speci men Type: BLOOD SPECIMENOrdering Facility: [facility] Address: [address] [place] [address] Performed By: #### 3 3762-6, [id number], 56941-0 ####[facility] [id number] [place] [id number] [place] Creatinine [Mass/Vol] 1.82 mg/dL High 0.58-0.96 [facility] Comment on above: Order Comment: Speci men Type: BLOOD SPECIMENOrdering Facility: [facility] Address: [address] [place] [address] Performed By: #### 3 3762-6, [id number], ####[facility]ORYCLIA [id number] [place] [address] [place] Creatinine and Glomerular filtration rate.predicted panel (S/P/Bld) 28 mL/min/1.73m??? Low >=60 [facility] Comment on above: Order Comment: Speci fly Type: BLOOD SPECIMENOrdering Facility: [facility] Address: [address] [place] [address] Result Comment: Amy mated Glomerular Filtration Rate [...] actual GFR. Performed By: #### 3 3762-6, [id number], 54045-8 ####[facility]ATORYCLIA [id number] [place] [address] [place] Glucose [Mass/Vol] 101 mg/dL High 74-99 [facility] Comment on above: Order Comment: Speci men Type: BLOOD SPECIMENOrdering Facility: [facility] Address: [address] [id number] Result Comment: The [place] [employer] (ADA) provides guidance for cutoff [...] Standards of Medical Care in Diabetes 2016, [place] [employer]. Diabetes Care. 2016.39(Suppl 1). Performed By: #### 3 3762-6, [id number], 16971-4 ####[facility] LABORATORYCLIA [id number] [place] [address] [place] Potassium [Moles/Vol] 4.2 mmol/L Normal 3.7-5.1 [facility] Comment on above: Order Comment: Speci men Type: BLOOD SPECIMENOrdering Facility: [facility] Address: [address] [place], [place] [address] Performed By: #### 3 3762-6, [id number], 28606-9 ####[facility] LABORATORYCLIA [id number] [place] [id number] [place] Protein [Mass/Vol] 6.4 g/dL Normal 6.3-8.0 [facility] Comment on above: Order Comment: Speci men Type: BLOOD SPECIMENOrdering Facility: [facility] Address: [address] [place] [id number] Performed By: #### 3 3762-6, HZX4961, 09571-6 ####[facility] LABORATORYCLIA [id number] [place] [id number] [place] Sodium [Moles/Vol] 138 mmol/L Normal 136-144 [facility] Comment on above: Order Comment: Speci men Type: BLOOD SPECIMENOrdering Facility: [facility] Address: [address] [place] [address] Performed By: #### 3 3762-6, ZQG7943, 38314-4 ####[facility] LABORATORYCLIA [id number] [place] [id number] [place] Urea nitrogen [Mass/Vol] 37 mg/dL High 7-21 [facility] Comment on above: Order Comment: [place]remayne bill Type: BLOOD SPECIMENOrdering Facility: [facility] Address: [address] [place] [address] Performed By: #### 3 3762-6, [id number], 69109-1 ####[facility] LABORATORYCLIA [id number] [address] [place] HIGH SENSITIVITY TROPONIN T (THIRD) 3 HRS AFTER INITIALon 10-29-2023 Troponin T.cardiac High sensitivity method [Mass/Vol] 21 ng/L High <12 [facility] Comment on above: Order Comment: Tremayne bill Type: BLOOD SPECIMENOrdering Facility: [facility] Address: [address] [place] [address] Result Comment: When assessing risk for acute [...] day MACE. Performed By: #### 3 3762-6, BJR5314, 85363-9 ####[facility] LABORATORYCLIA [id number] [address] [place] NT-proBNP [facility] Natriuretic peptide.B prohormone N-Terminal [Mass/Vol] 245 pg/mL Normal <450 [facility] Comment on above: Order Comment: [place]rem[place] bill Type: BLOOD SPECIMENOrdering Facility: [facility] Address: [address] [place] [address] Performed By: #### 3 3762-6, QSM0006, 57580-0 ####[facility] LABORATORYCLIA [id number] [address] [place] NURSING PROGon 10-29-2023 NURSING PROG HNO ID: [id number] Author: KATRINA ACEVES, VIKTOR Service: Nursing Author Type: Registered Nurse Type: Nursing Progress Note Filed: 10/29/2023 10:41 Note Text: Other: 1030: Pt walked independently around the nursing unit x 2. Pt was slightly short of breath after her walk, recovered quickly with rest. Currently up to chair. Normal [facility] Urinalysis complete panel (U )on 10-29-2023 Bilirubin Ql (U) Negative Normal Negative [facility] Comment on above: Order Comment: Speci men Type: BLOOD SPECIMEN [facility] Address: [address] [place] [address] Performed By: #### L [id number], 42219-5, 46678-3, 16729-8 #### [facility] CLIA [id number] [address] [place] [address] [place] Clarity (Unsp spec) Clear Normal Clear [facility] Comment on above: Order Comment: Speci men Type: BLOOD SPECIMEN [facility] Address: [address] [place] [address] Performed By: #### L [id number], 56330-9, 51844-8, 40525-0 #### [facility] CLIA [id number] [address] [place] [address] [place] Color (U) Light Yellow Normal Yellow [facility] Comment on above: Order Comment: Speci men Type: BLOOD SPECIMEN [facility] Address: [address] [place] [address] Performed By: #### L [id number], 37178-6, 99765-8, 13581-9 #### [facility] CLIA [id number] [address] [place] [address] [place] Glucose Test strip (U) [Mass/Vol] Negative Normal Trace, Negative [facility] Comment on above: Order Comment: Speci men Type: BLOOD SPECIMEN [facility] Address: [address] [place] [address] Performed By: #### L AZ4487, 45353-1, 19325-9, 53939-5 #### [facility] CLIA [id number] [address] [place] [address] [place] Hemoglobin Ql (U) Negative Normal Negative, Trace [facility] Comment on above: Order Comment: Speci men Type: BLOOD SPECIMEN [facility] Address: [address] [place] [address] Performed By: #### L [id number], 25593-6, 52143-0, 92318-2 #### [facility] CLIA [id number] [address] [place] [address] [place] Hyaline casts (Urine sed) [#/Area] 4-10 /LPF Abnormal 0 /LPF [facility] Comment on above: Order Comment: Speci men Type: BLOOD SPECIMEN [facility] Address: [address] [place] [address] Performed By: #### L [id number], 95152-7, 82499-5, 73623-8 #### [facility] CLIA [id number] [address] [place] [address] [place] Ketones Ql (U) Negative Normal Negative, Trace [facility] Comment on above: Order Comment: Speci men Type: BLOOD SPECIMEN [facility] Address: [address] [place] [address] Performed By: #### L [id number], 26121-9, 76609-0, 22707-4 #### [facility] CLIA [id number] [address] [place] [address] [place] Leukocyte esterase Test strip Ql (U) 25 Jacob/uL Normal Negative, 25 Jacob/uL [facility] Comment on above: Order Comment: Speci men Type: BLOOD SPECIMEN [facility] Address: [address] [place] [address] Performed By: #### L [id number], 58585-3, 66256-3, 42310-8 #### [facility] CLIA [id number] [place] [address] [place] Nitrite Ql (U) Negative Normal Negative [facility] Comment on above: Order Comment: Speci men Type: BLOOD SPECIMEN [facility] Address: [address] [place] [address] Performed By: #### L VL5375, 71953-4, , 35586-3 #### [facility] CLIA [id number] [address] [place] [address] [place] pH (U) 5.0 [pH] Normal 5.0-8.0 [facility] Comment on above: Order Comment: Speci men Type: BLOOD SPECIMEN [facility] Address: [address] [place] [address] Performed By: #### L VP5038, 98833-5, , 50225-4 #### [facility] CLIA [id number] [address] [place] [address] [place] Protein (U) [Mass/Vol] Negative Normal Trace , Negative [facility] Comment on above: Order Comment: Speci men Type: BLOOD SPECIMEN [facility] Address: [address] [place] [address] Performed By: #### L OK3905, , , 86169-8 #### [facility] CLIA [id number] [address] [place] [address] [place] RBC LM.HPF (Urine sed) [#/Area] 0-3 /HPF Normal 0-3 /HPF [facility] Comment on above: Order Comment: Speci men Type: BLOOD SPECIMEN [facility] Address: [address] [place] [address] Performed By: #### L [id number], 25923-4, , 57030-5 #### [facility] CLIA [id number] [address] [place] [address] [place] Specific gravity (U) [Rel density] 1.012 Normal 1.005-1.03 0 [facility] Comment on above: Order Comment: Speci men Type: BLOOD SPECIMEN [facility] Address: [address] [place] [address] Performed By: #### L [id number], 35698-2, 49571-0, 63531-4 #### [facility] CLIA [id number] [address] [place] [address] [place] Urobilinogen Ql (U) Normal Normal Normal [facility] Comment on above: Order Comment: Speci men Type: BLOOD SPECIMEN [facility] Address: [address] [place] [address] Performed By: #### L EY4277, 52064-6, 85180-4, 41367-4 #### [facility] CLIA [id number] [address] [place] [address] [place] WBC LM.HPF (Urine sed) [#/Area] 0-5 /HPF Normal 0-5 /HPF [facility] Comment on above: Order Comment: Speci men Type: BLOOD SPECIMEN [facility] Address: [address] [place] [address] Performed By: #### L [id number], 21154-8, 93453-4, 32481-8 #### [facility] CLIA [id number] [address] [place] [address] [place] CBC W Auto Differential pane l (Bld)on 10-28-2023 Basophils (Bld) [#/Vol] 0.05 10*3/uL Normal <0.11 [facility] Comment on above: Order Comment: Speci men Type: BLOOD SPECIMEN [facility] Address: [address] [place] [address] Performed By: #### L [id number], 08200-4, 97040-1, 32291-6 #### [facility] CLIA [id number] [address] [place] [address] [place] Basophils/100 WBC (Bld) 0.8 % Normal [facility] Comment on above: Order Comment: Speci men Type: BLOOD SPECIMEN [facility] Address: [address] [place] [address] Performed By: #### L [id number], 84151-2, 54196-8, 83273-7 #### [facility] CLIA [id number] [address] [place] [address] [place] Differential cell count method Nom (Bld) Auto Normal [facility] Comment on above: Order Comment: Speci men Type: BLOOD SPECIMEN [facility] Address: [address] [place] [address] Performed By: #### L DQ9334, 76916-8, 43466-8, 07369-0 #### [facility] CLIA [id number] [address] [place] [address] [place] Eosinophils (Bld) [#/Vol] 0.21 10*3/uL Normal <0.46 [facility] Comment on above: Order Comment: Speci men Type: BLOOD SPECIMEN [facility] Address: [address] [place] [address] Performed By: #### L PY1790, 34276-6, , 90565-0 #### [facility] CLIA [id number] [address] [place] [address] [place] Eosinophils/100 WBC (Bld) 3.5 % Normal [facility] Comment on above: Order Comment: Speci men Type: BLOOD SPECIMEN [facility] Address: [address] [place] [address] Performed By: #### L SU6750, 10287-6, 65100-7, 09525-0 #### [facility] CLIA [id number] [address] [place] [address] [place] Erythrocyte distribution width (RBC) [Ratio] 13.1 % Normal 11.5-15.0 [facility] Comment on above: Order Comment: Speci men Type: BLOOD SPECIMEN [facility] Address: [address] [place] [address] Performed By: #### L [id number], 78686-9, 39499-2, 46355-8 #### [facility] CLIA [id number] [address] [place] [address] [place] Hematocrit (Bld) [Volume fraction] 36.1 % Normal 36.0-46.0 [facility] Comment on above: Order Comment: Speci men Type: BLOOD SPECIMEN [facility] Address: [address] [place] [address] Performed By: #### L [id number], 39961-6, 13831-8, 54624-9 #### [facility] CLIA [id number] [address] [place] [address] [place] Hemoglobin (Bld) [Mass/Vol] 11.9 g/dL Normal 11.5-15.5 [facility] Comment on above: Order Comment: Speci men Type: BLOOD SPECIMEN [facility] Address: [address] [place] [address] Performed By: #### L [id number], 91699-9, , 90202-5 #### [facility] CLIA [id number] [address] [place] [address] [place] Immature granulocytes (Bld) [#/Vol] 10*3/uL Normal <0.10 [facility] Comment on above: Order Comment: Speci men Type: BLOOD SPECIMEN [facility] Address: [address] [place] [address] Performed By: #### L UK0151, 25120-2, , 00472-9 #### [facility] CLIA [id number] [address] [place] [address] [place] Immature granulocytes/100 WBC (Bld) 0.3 % Normal [facility] Comment on above: Order Comment: Speci men Type: BLOOD SPECIMEN [facility] Address: [address] [place] [address] Performed By: #### L [id number], 76023-5, , 75175-3 #### [facility] CLIA [id number] [address] [place] [address] [place] Lymphocytes (Bld) [#/Vol] 1.70 10*3/uL Normal 1.00-4.00 [facility] Comment on above: Order Comment: Speci men Type: BLOOD SPECIMEN [facility] Address: [address] [place] [address] Performed By: #### L [id number], 73951-2, 89084-2, 49947-8 #### [facility] CLIA [id number] [address] [place] [address] [place] Lymphocytes/100 WBC (Bld) 28.1 % Normal [facility] Comment on above: Order Comment: Speci men Type: BLOOD SPECIMEN [facility] Address: [address] [place] [address] Performed By: #### L [id number], 86585-8, 45197-2, 33517-7 #### [facility] CLIA [id number] [address] [place] [address] [place] MCH (RBC) [Entitic mass] 31.4 pg Normal 26.0-34.0 [facility] Comment on above: Order Comment: Speci men Type: BLOOD SPECIMEN [facility] Address: [address] [place] [address] Performed By: #### L [id number], 57083-2, 18562-1, 35838-2 #### [facility] CLIA [id number] [address] [place] [address] [place] MCHC (RBC) [Mass/Vol] 33.0 g/dL Normal 30.5-36.0 [facility] Comment on above: Order Comment: Speci men Type: BLOOD SPECIMEN [facility] Address: [address] [place] [address] Performed By: #### L NH8730, 96893-4, 06619-7, 70947-4 #### [facility] CLIA [id number] [address] [place] [address] [place] MCV (RBC) [Entitic vol] 95.3 fL Normal 80.0-100.0 [facility] Comment on above: Order Comment: Speci men Type: BLOOD SPECIMEN [facility] Address: [address] [place] [address] Performed By: #### L SU2922, 58627-9, 49967-6, 36611-9 #### [facility] CLIA [id number] [address] [place] [address] [place] Monocytes (Bld) [#/Vol] 0.72 10*3/uL Normal <0.87 [facility] Comment on above: Order Comment: Speci men Type: BLOOD SPECIMEN [facility] Address: [address] [place] [address] Performed By: #### L AL7953, 02164-7, 20219-0, 99927-9 #### [facility] CLIA [id number] [address] [place] [address] [place] Monocytes/100 WBC (Bld) 11.9 % Normal [facility] Comment on above: Order Comment: Speci men Type: BLOOD SPECIMEN [facility] Address: [address] [place] [address] Performed By: #### L AW6514, 63191-1, 09718-9, 31446-5 #### [facility] CLIA [id number] [address] [place] [address] [place] Neutrophils (Bld) [#/Vol] 3.36 10*3/uL Normal 1.45-7.50 [facility] Comment on above: Order Comment: Speci men Type: BLOOD SPECIMEN [facility] Address: [address] [place] [address] Performed By: #### L [id number], 59760-7, 58584-9, 43500-5 #### [facility] CLIA [id number] [address] [place] [address] [place] Neutrophils/100 WBC (Bld) 55.4 % Normal [facility] Comment on above: Order Comment: Speci men Type: BLOOD SPECIMEN [facility] Address: [address] [place] [address] Performed By: #### L [id number], 11856-2, 23322-1, 96854-9 #### [facility] CLIA [id number] [address] [place] [address] [place] Nucleated RBC (Bld) [#/Vol] 10*3/uL Normal <0.01 [facility] Comment on above: Order Comment: Speci men Type: BLOOD SPECIMEN [facility] Address: [address] [place] [address] Performed By: #### L VV6456, 30709-3, 49778-2, 47344-5 #### [facility] CLIA [id number] [address] [place] [address] [place] Nucleated RBC/100 WBC (Bld) [Ratio] 0.0 /100 WBC Normal [facility] Comment on above: Order Comment: Speci men Type: BLOOD SPECIMEN [facility] Address: [address] [place] [address] Performed By: #### L [id number], 24160-3, 69678-3, 63778-0 #### [facility] CLIA [id number] [address] [place] [address] [place] Platelet mean volume (Bld) [Entitic vol] 11.0 fL Normal 9.0-12.7 [facility] Comment on above: Order Comment: Speci men Type: BLOOD SPECIMEN [facility] Address: [address] [place] [address] Performed By: #### L [id number], 98606-2, 42678-4, 28770-0 #### [facility] CLIA [id number] [address] [place] [address] [place] Platelets (Bld) [#/Vol] 174 10*3/uL Normal 150-400 [facility] Comment on above: Order Comment: Speci men Type: BLOOD SPECIMEN [facility] Address: [address] [place] [address] Performed By: #### L EQ7844, 23115-9, 06792-7, 70554-3 #### [facility] CLIA [id number] [address] [place] [address] [place] RBC (Bld) [#/Vol] 3.79 10*6/uL Low 3.90-5.20 [facility] Comment on above: Order Comment: Speci men Type: BLOOD SPECIMEN [facility] Address: [address] [place] [address] Performed By: #### L [id number], 65854-5, 74934-1, 93058-9 #### [facility] CLIA [id number] [place] [address] [place] WBC (Bld) [#/Vol] 6.06 10*3/uL Normal 3.70-11.00 [facility] Comment on above: Order Comment: Speci men Type: BLOOD SPECIMEN [facility] Address: [address] [place] [address] Performed By: #### L NO7638, 96644-9, 19195-7, 41709-4 #### [facility] CLIA [id number] [address] [place] [address] [place] CONSULT PROGon 10-28-2023 CONSULT PROG HNO ID: [id number] Author: VASYL COVARRUBIAS MD Service: Cardiovascular Medicine Author Type: Physician Type: Consult Progress Note Filed: 10/29/2023 04:22 Note Text: CARDIOLOGY CONSULT PROGRESS NOTE SERVICE DATE: 10/28/2023 Time: 6:05 PM ATTENDING: Ata Toscano MD [place] Hand: Vasyl Covarrubias MD ASSESSMENT: Admitted with worsening dyspnea HFpEF, moderately severe MR (VI[facility]A [place] 07/2023: MR ERO 0.33 cm2, MR volume 67cm.)and mild to moderate AI at [facility], says was being considered for MVR LAY on CKD Paroxysmal A-fib diagnosed 1 month ago started amiodarone AC Eliquis CAD PCI LAD Synergy 03/2022 ; PCI RCA Synergy 3.0 x 20 in 05/2020, NM stress test reported normal 07/2023 Hypertension Hyperlipidemia, at home on statin Thyroid disease, BMI 32, GERD, depression anxiety, back and knee surgeries Card meds [employer]: Eliquis 5 twice daily, losartan 100 daily, Imdur 30 daily, hydralazine 25 twice daily, Lasix 20 daily, K-Dur 10 daily, Lipitor 40 daily RECOMMENDATIONS: Awaiting images of VIOLA from [place]. CÉSAR amiodarone Consider low-dose BB [aware of history [...] Pulse: (!) 59 60 (!) 56 Resp: Temp: 36.6 ?C (97.9 ?F) 36.5 ?C [...] AND Lipase Recent Labs 10/28/23 0549 10/26/23 214 TPROT 6.1* 6.5 ALB 4.1 4.1 ALT [...] AM call 24 hour service line Normal [facility] Comprehensive metabolic 2000 panelon 10-28-2023 Albumin [Mass/Vol] 4.1 g/dL Normal 3.9-4.9 [facility] Comment on above: Order Comment: Speci men Type: BLOOD SPECIMEN [facility] Address: [address] [place] [address] Performed By: #### 5 7021-8 #### [facility] CLIA [id number] [address] [place] [address] [place] ALP [Catalytic activity/Vol] 86 U/L Normal 34-123 [facility] Comment on above: Order Comment: Speci men Type: BLOOD SPECIMEN [facility] Address: [address] [place] [address] Performed By: #### 5 7021-8 #### [facility] CLIA [id number] [place] [address] [place] ALT [Catalytic activity/Vol] 11 U/L Normal 7-38 [facility] Comment on above: Order Comment: Speci men Type: BLOOD SPECIMEN [facility] Address: [address] [place] [address] Performed By: #### 5 7021-8 #### [facility] CLIA [id number] [address] [place] [address] [place] Anion gap [Moles/Vol] 9 mmol/L Normal 9-18 [facility] Comment on above: Order Comment: Speci men Type: BLOOD SPECIMEN [facility] Address: [address] [place] [address] Performed By: #### 5 7021-8 #### [facility] CLIA [id number] [address] [place] [address] [place] AST [Catalytic activity/Vol] 11 U/L Low 13-35 [facility] Comment on above: Order Comment: Speci men Type: BLOOD SPECIMEN [facility] Address: [address] [place] [address] Performed By: #### 5 7021-8 #### [facility] CLIA [id number] [address] [place] [address] [place] Bilirubin [Mass/Vol] 0.6 mg/dL Normal 0.2-1.3 [facility] Comment on above: Order Comment: Speci men Type: BLOOD SPECIMEN [facility] Address: [address] [place] [address] Performed By: #### 5 7021-8 #### [facility] CLIA [id number] [address] [place] [address] [place] Calcium [Mass/Vol] 9.3 mg/dL Normal 8.5-10.2 [facility] Comment on above: Order Comment: Speci men Type: BLOOD SPECIMEN [facility] Address: [address] [place] [address] Performed By: #### 5 7021-8 #### [facility] CLIA [id number] [address] [place] [address] [place] Chloride [Moles/Vol] 103 mmol/L Normal 97-105 [facility] Comment on above: Order Comment: Speci men Type: BLOOD SPECIMEN [facility] Address: [address] [place] [address] Performed By: #### 5 7021-8 #### [facility] CLIA [id number] [address] [place] [address] [place] CO2 [Moles/Vol] 27 mmol/L Normal 22-30 [facility] Comment on above: Order Comment: Speci men Type: BLOOD SPECIMEN [facility] Address: [address] [place] [address] Performed By: #### 5 7021-8 #### [facility] CLIA [id number] [address] [place] [address] [place] Creatinine [Mass/Vol] 1.54 mg/dL High 0.58-0.96 [facility] Comment on above: Order Comment: Speci men Type: BLOOD SPECIMEN Ordering Facility: [facility] Address: [address] [place] [address] Performed By: #### 5 7021-8 #### [facility] CLIA [id number] [address] [place] [address] [place] Creatinine and Glomerular filtration rate.predicted panel (S/P/Bld) 35 mL/min/1.73m??? Low >=60 [facility] Comment on above: Order Comment: Speci men Type: BLOOD SPECIMEN Ordering Facility: [facility] Address: [address] [place] [address] Result Comment: Amy mated Glomerular Filtration Rate [...] GFR. Performed By: #### 5 7021-8 #### [facility] CLIA [id number] [address] [place] [address] [place] Glucose [Mass/Vol] 97 mg/dL Normal 74-99 [facility] Comment on above: Order Comment: Tremayne bill Type: BLOOD SPECIMEN Ordering Facility: [facility] Address: [address] [place] [address] Result Comment: The [place] Diabetes Association (ADA) provides guidance for cutoff [...] Standards of Medical Care in Diabetes 2016, [place] [employer]. Diabetes Care. 2016.39(Suppl 1). Performed By: #### 5 7021-8 #### [facility] CLIA [id number] [address] [place] [address] [place] Potassium [Moles/Vol] 4.3 mmol/L Normal 3.7-5.1 [facility] Comment on above: Order Comment: Tremayne bill Type: BLOOD SPECIMEN Ordering Facility: [facility] Address: [address] [place] [address] Performed By: #### 5 7021-8 #### [facility] CLIA [id number] [place] [address] [place] Protein [Mass/Vol] 6.1 g/dL Low 6.3-8.0 [facility] Comment on above: Order Comment: Speci men Type: BLOOD SPECIMEN Ordering Facility: [facility] Address: [address] [place] [address] Performed By: #### 5 7021-8 #### [facility] CLIA [id number] [address] [place] [address] [place] Sodium [Moles/Vol] 139 mmol/L Normal 136-144 [facility] Comment on above: Order Comment: Speci men Type: BLOOD SPECIMEN Ordering Facility: [facility] Address: [address] [place] [address] Performed By: #### 5 7021-8 #### [facility] CLIA [id number] [address] [place] [address] [place] Urea nitrogen [Mass/Vol] 29 mg/dL High 7- [facility] Comment on above: Order Comment: Speci men Type: BLOOD SPECIMEN Ordering Facility: [facility] Address: [address] [place] [address] Performed By: #### 5 7021-8 #### [facility] CLIA [id number] [address] [place] [address] [place] ECHOon 10-28-2023 Echocardiography Echocardiography Rep ort: Transthoracic Echo [facility] Date of service: 10/28/2023 3:41:25 PM Ordering [...] * * Final * * * CC [facility] : [id number] Normal [facility] Magnesium SerPl-mCncon 10-27 Magnesium [Mass/Vol] 2.0 mg/dL Normal 1.7-2.3 [facility] Comment on above: Order Comment: Speci men Type: BLOOD SPECIMEN Ordering Facility: [facility] Address: [address] [place] [address] Performed By: #### 5 7021-8 #### [facility] CLIA [id number] STATES OF [facility] US KIDNEY/BLADDERon 10-28-19 24 US KIDNEY/BLADDER * * *Final Report* * [...] appearance. IMPRESSION: No hydronephrosis or renal stones Pharmacy Account Director: SCOTT Transcribe Date/Time: Oct 28 2023 7:49A Dictated by : DANYEL CELAYA MD This examination was interpreted and the report reviewed and electronically signed by: DANYEL CELAYA MD on Oct 28 2023 7:51AM EST [id number] Normal [facility] CASE MGT INIT Tunde 2023 CASE MGT INIT ALBA HNO ID: [id number] Author: SNEHA LIMON LISW Service: Social Work Author Type: Spiritual Counselor Type: Care Mgt Initial Assessment Filed: 10/27/2023 15:40 Note Text: CARE MANAGEMENT: ASSESSMENT AND DISCHARGE PLAN SERVICE DATE: October 27, 2023 SERVICE TIME: 3:36 PM PCP: Demarco Newell MD Primary Contact: Extended Emergency Contact Information Primary Emergency Contact: Elio Hubbard Address: [address] [place] [address] [place] [address] Relation: Spouse Secondary Emergency Contact: BARRY CHURCH Mobile Relation: Daughter Admission Status: Inpatient Insurance Provider: MEDICARE A AND B Discharge Planning requested by: Per Department Practice Potential Transition Plans Home Advance Directives Current Advance Directive: None Health Care Marketing Specialist Attempted to Assist with AD Completion: Yes Action: Patient Completed Advance Directive Current Living Arrangements and Support Lives with: Spouse/significant other Type of Residence: Private Residence (House) Does the patient have to climb stairs at home?: stairs outside the home Support: Children, Friends/neighbors, Spouse/significant other How do you manage to accomplish the following: Independent: Ambulation;Bathe/Shower;Dr massey;Meals/Meal Prep;Going to the bathroom;Medication Management;Transportation to appointments/community Current Services/Equipment Current Post-Acute Service(s): DME Current DME Type: Shower seat Discharge Planning Patient Goal(s): Be able to go home, General wellness [place] Explained: [place] Given: No Reason Not Given: [...] CHF, Afib. Pt lives with spouse in ranch home, 2 steps to enter. Pt is [...] 27, 2023 TIME: 3:36 PM CONTACT #: [phone] [facility] CONSULTon 10-27-2023 CONSULT HNO ID: [id number] Author: VASYL COVARRUBIAS MD Service: Cardiovascular Disease [...] AM CONSULTING PHYSICIAN: Vasyl Covarrubias MD PCP: Demacro Newell MD ATTENDING: Ata Toscano MD REASON [...] AF diagnosis about 1 month ago at [place] and started on amiodarone and Eliquis. Since [...] for continued CTS f/u for MR at [place]. Pt presents this admission on 10/25 w/ c/o worsening SOB since d/c and reduced ability to perform ADLs. In ER EKG SR w/ MAGDALENO/inferior STD. HSTnT flat at 18-18-19. BUN 456. LAY worsening from prior visit ( Cre 1.6/ BUN 30/ GFR 33). TSH also checked and high at 4.790- pt on liothyronine 5mcg daily. Pt admitted to [facility] for evaluation of valvular disease and HF [...] PRN acetaminophen 500-1,00 (more content not included)... Normal [facility] CONSULT HNO ID: [id number] Author: VASYL COVARRUBIAS MD Service: Cardiovascular Medicine Author Type: Physician Type: Consults Filed: 10/29/2023 04:05 Note Text: CARDIOLOGY SERVICE: CONSULT SERVICE DATE: 10/27/2023 Time: 7:40 AM CONSULTING PHYSICIAN: Vasyl Covarrubias [facility] PCP: Demarco Newell MD ATTENDING: Ata Toscano MD REASON FOR CONSULT: Cardiology Evaluation ASSESSMENT: Admitted with worsening dyspnea HFpEF, moderately severe MR and mild to moderate AI at [facility], says was being considered for MVR Paroxysmal A-fib diagnosed 1 month ago started amiodarone AC Eliquis CAD PCI LAD Synergy 03/2022 ; PCI RCA Synergy 3.0 x 20 in 05/2020 Hypertension Hyperlipidemia, at home on statin Thyroid disease, BMI 32, GERD, depression anxiety Card meds [employer]: Eliquis 5 twice daily, losartan 100 daily, Imdur 30 daily, hydralazine 25 twice daily, Lasix 20 daily, K-Dur 10 daily, Lipitor 40 daily PLAN: IV Lasix Monitor renal function Obtain records and imaging from [place] Above was discussed with pt Thank you [...] CAD (coronary artery (more content not included)... [facility] ED NOTEon 10-27-2023 ED NOTE HNO ID: [id number] Author: GRICELDA DAS RN Service: ? Author Type: Registered Nurse Type: ED Notes Filed: 10/26/2023 23:35 Note Text: Report to Mounika HOANG [facility] ED PROV NOTEon 10-27-2023 ED PROV NOTE HNO ID: [id number] Author: MARION BURNETT DO Service: Emergency Medicine [...] her daughter and they live south of [facility]. Patient reports that she was recently diagnosed with atrial fibrillation about a month ago in [place] and was started on amiodarone and Eliquis. She also has a history of mitral valve regurg and is waiting for follow-up to see if she would be a candidate for surgery. She had been compliant with all of her meds. She was seen in the ED at [facility] on 10/12 and was seen by cardiology. [...] Abnormal; Notab (more content not included)... Normal [facility] FLUABV+SARS-CoV-2+RSV Pnl Re sp ERICK+probeon 10-27-2023 FLUABV+SARS-CoV-2+RSV Pnl Resp ERICK+probe COVID 19 RESULT: Not detected The method used is RT-PCR or an equivalent NAAT method. Reference Range(the expected result in uninfected individuals): Not detected INFLUENZA A PCR: Not detected INFLUENZA B PCR: Not detected RSV PCR: Not detected Normal [facility] Comment on above: Performed By: #### 9 5941-1 ####[facility] [id number] [address] [place] HIGH SENSITIVITY TROPONIN T (SECOND)on 10-27-2023 Troponin T.cardiac High sensitivity method [Mass/Vol] 19 ng/L High <12 [facility] Comment on above: Order Comment: Speci men Type: BLOOD SPECIMEN Ordering Facility: [facility] Address: [address] [place] [address] Result Comment: When assessing risk for acute [...] 30 day MACE. Performed By: #### L BV0727, 66068-3, 19935-7, 64862-2 #### [facility] CLIA [id number] [place] HISTORY PHYSICALon HISTORY PHYSICAL HNO ID: [id number] Author: ATA TOSCANO MD Service: General Internal [...] -- (!) (more content not included)... Normal [facility] TSH SerPl-aCncon 10-27-2023 TSH Qn 4.790 m[IU]/L High 0.270-4.20 0 [facility] Comment on above: Order Comment: Speci men Type: BLOOD SPECIMEN Ordering Facility: [facility] Address: [address] [place] [address] Performed By: #### L [id number], 58346-9, 93093-2, 84657-1 #### [facility] CLIA [id number] [address] [place] [address] [place] XR CHEST 2V FRONTAL/LATon XR [...] soft tissues: Unremarkable. IMPRESSION: No acute findings. Pharmacy Account Director: SCOTT Transcribe Date/Time: Oct 26 2023 10:31P Dictated by : TRUPTI ROBLES MD This examination was interpreted and the report reviewed and electronically signed by: TRUPTI ROBLES MD on Oct 26 2023 10:32PM EST [id number] Normal [facility] CBC W Auto Differential pane l (Bld)on 10-26-2023 Basophils (Bld) [#/Vol] 0.07 10*3/uL Normal <0.11 [facility] Comment on above: Order Comment: Speci men Type: BLOOD SPECIMEN Ordering Facility: [facility] Address: [address] [place] [address] Performed By: #### 5 7021-8 #### [facility] CLIA [id number] [address] [place] [address] [place] Basophils/100 WBC (Bld) 1.0 % Normal [facility] Comment on above: Order Comment: Speci men Type: BLOOD SPECIMEN Ordering Facility: [facility] Address: [address] [place] [address] Performed By: #### 5 7021-8 #### [facility] CLIA [id number] [address] [place] [address] [place] Differential cell count method Nom (Bld) Auto Normal [facility] Comment on above: Order Comment: Speci men Type: BLOOD SPECIMEN Ordering Facility: [facility] Address: [address] [place] [address] Performed By: #### 5 7021-8 #### [facility] CLIA [id number] [address] [place] [address] [place] Eosinophils (Bld) [#/Vol] 0.20 10*3/uL Normal <0.46 [facility] Comment on above: Order Comment: Speci men Type: BLOOD SPECIMEN Ordering Facility: [facility] Address: [address] [place] [address] Performed By: #### 5 7021-8 #### [facility] CLIA [id number] [address] [place] [address] [place] Eosinophils/100 WBC (Bld) 2.8 % Normal [facility] Comment on above: Order Comment: Speci men Type: BLOOD SPECIMEN Ordering Facility: [facility] Address: [address] [place] [address] Performed By: #### 5 7021-8 #### [facility] CLIA [id number] [address] [place] [address] [place] Erythrocyte distribution width (RBC) [Ratio] 13.5 % Normal 11.5-15.0 [facility] Comment on above: Order Comment: Speci men Type: BLOOD SPECIMEN Ordering Facility: [facility] Address: [address] [place] [address] Performed By: #### 5 7021-8 #### [facility] CLIA [id number] [address] [place] [address] [place] Hematocrit (Bld) [Volume fraction] 37.0 % Normal 36.0-46.0 [facility] Comment on above: Order Comment: Speci men Type: BLOOD SPECIMEN Ordering Facility: [facility] Address: [address] [place] [address] Performed By: #### 5 7021-8 #### [facility] CLIA [id number] [address] [place] [address] [place] Hemoglobin (Bld) [Mass/Vol] 12.3 g/dL Normal 11.5-15.5 [facility] Comment on above: Order Comment: Speci men Type: BLOOD SPECIMEN Ordering Facility: [facility] Address: [address] [place] [address] Performed By: #### 5 7021-8 #### [facility] CLIA [id number] [address] [place] [address] [place] Immature granulocytes (Bld) [#/Vol] 10*3/uL Normal <0.10 [facility] Comment on above: Order Comment: Speci men Type: BLOOD SPECIMEN Ordering Facility: [facility] Address: [address] [place] [address] Performed By: #### 5 7021-8 #### [facility] CLIA [id number] [address] [place] [address] [place] Immature granulocytes/100 WBC (Bld) 0.3 % Normal [facility] Comment on above: Order Comment: Speci men Type: BLOOD SPECIMEN Ordering Facility: [facility] Address: [address] [place] [address] Performed By: #### 5 7021-8 #### [facility] CLIA [id number] [address] [place] [address] [place] Lymphocytes (Bld) [#/Vol] 2.00 10*3/uL Normal 1.00-4.00 [facility] Comment on above: Order Comment: Speci men Type: BLOOD SPECIMEN Ordering Facility: [facility] Address: [address] [place] [address] Performed By: #### 5 7021-8 #### [facility] CLIA [id number] [address] [place] [address] [place] Lymphocytes/100 WBC (Bld) 28.3 % Normal [facility] Comment on above: Order Comment: Speci men Type: BLOOD SPECIMEN Ordering Facility: [facility] Address: [address] [place] [address] Performed By: #### 5 7021-8 #### [facility] CLIA [id number] [address] [place] [address] [place] MCH (RBC) [Entitic mass] 31.9 pg Normal 26.0-34.0 [facility] Comment on above: Order Comment: Speci men Type: BLOOD SPECIMEN Ordering Facility: [facility] Address: [address] [place] [address] Performed By: #### 5 7021-8 #### [facility] CLIA [id number] [address] [place] [address] [place] MCHC (RBC) [Mass/Vol] 33.2 g/dL Normal 30.5-36.0 [facility] Comment on above: Order Comment: Speci men Type: BLOOD SPECIMEN Ordering Facility: [facility] Address: [address] [place] [address] Performed By: #### 5 7021-8 #### [facility] CLIA [id number] [address] [place] [address] [place] MCV (RBC) [Entitic vol] 96.1 fL Normal 80.0-100.0 [facility] Comment on above: Order Comment: Speci men Type: BLOOD SPECIMEN Ordering Facility: [facility] Address: [address] [place] [address] Performed By: #### 5 7021-8 #### [facility] CLIA [id number] [address] [place] [address] [place] Monocytes (Bld) [#/Vol] 0.89 10*3/uL High <0.87 [facility] Comment on above: Order Comment: Speci men Type: BLOOD SPECIMEN Ordering Facility: [facility] Address: [address] [place] [address] Performed By: #### 5 7021-8 #### [facility] CLIA [id number] [address] [place] [address] [place] Monocytes/100 WBC (Bld) 12.6 % Normal [facility] Comment on above: Order Comment: Speci men Type: BLOOD SPECIMEN Ordering Facility: [facility] Address: [address] [place] [address] Performed By: #### 5 7021-8 #### [facility] CLIA [id number] [address] [place] [address] [place] Neutrophils (Bld) [#/Vol] 3.89 10*3/uL Normal 1.45-7.50 [facility] Comment on above: Order Comment: Speci men Type: BLOOD SPECIMEN Ordering Facility: [facility] Address: [address] [place] [address] Performed By: #### 5 7021-8 #### [facility] CLIA [id number] [address] [place] [address] [place] Neutrophils/100 WBC (Bld) 55.0 % Normal [facility] Comment on above: Order Comment: Speci men Type: BLOOD SPECIMEN Ordering Facility: [facility] Address: [address] [place] [address] Performed By: #### 5 7021-8 #### [facility] CLIA [id number] [address] [place] [address] [place] Nucleated RBC (Bld) [#/Vol] 10*3/uL Normal <0.01 [facility] Comment on above: Order Comment: Speci men Type: BLOOD SPECIMEN Ordering Facility: [facility] Address: [address] [place] [address] Performed By: #### 5 7021-8 #### [facility] CLIA [id number] [address] [place] [address] [place] Nucleated RBC/100 WBC (Bld) [Ratio] 0.0 /100 WBC Normal [facility] Comment on above: Order Comment: Speci men Type: BLOOD SPECIMEN Ordering Facility: [facility] Address: [address] [place] [address] Performed By: #### 5 7021-8 #### [facility] CLIA [id number] [address] [place] [address] [place] Platelet mean volume (Bld) [Entitic vol] 11.4 fL Normal 9.0-12.7 [facility] Comment on above: Order Comment: Speci men Type: BLOOD SPECIMEN Ordering Facility: [facility] Address: [address] [place] [address] Performed By: #### 5 7021-8 #### [facility] CLIA [id number] [address] [place] [address] [place] Platelets (Bld) [#/Vol] 205 10*3/uL Normal 150-400 [facility] Comment on above: Order Comment: Speci men Type: BLOOD SPECIMEN Ordering Facility: [facility] Address: [address] [place] [address] Performed By: #### 5 7021-8 #### [facility] CLIA [id number] [address] [place] [address] [place] RBC (Bld) [#/Vol] 3.85 10*6/uL Low 3.90-5.20 [facility] Comment on above: Order Comment: Speci men Type: BLOOD SPECIMEN Ordering Facility: [facility] Address: [address] [place] [address] Performed By: #### 5 7021-8 #### [facility] CLIA [id number] [address] [place] [address] [place] WBC (Bld) [#/Vol] 7.07 10*3/uL Normal 3.70-11.00 [facility] Comment on above: Order Comment: Speci men Type: BLOOD SPECIMEN Ordering Facility: [facility] Address: [address] [place] [address] Performed By: #### 5 7021-8 #### [facility] CLIA [id number] [address] [place] [address] [place] Comprehensive metabolic 2000 panelon 10-26-2023 Albumin [Mass/Vol] 4.1 g/dL Normal 3.9-4.9 [facility] Comment on above: Order Comment: Speci men Type: BLOOD SPECIMEN Ordering Facility: [facility] Address: [address] [place] [address] Performed By: #### L [id number], 97612-3, 47639-6, 82309-3 #### [facility] CLIA [id number] [address] [place] [address] [place] ALP [Catalytic activity/Vol] 102 U/L Normal 34-123 [facility] Comment on above: Order Comment: Speci men Type: BLOOD SPECIMEN Ordering Facility: [facility] Address: [address] [place] [address] Performed By: #### L VG4541, 20500-0, 22203-7, 49214-9 #### [facility] CLIA [id number] [address] [place] [address] [place] ALT [Catalytic activity/Vol] 12 U/L Normal 7-38 [facility] Comment on above: Order Comment: Speci men Type: BLOOD SPECIMEN Ordering Facility: [facility] Address: [address] [place] [address] Performed By: #### L KG6723, 77716-7, 55901-6, 31137-2 #### [facility] CLIA [id number] [address] [place] [address] [place] Anion gap [Moles/Vol] 11 mmol/L Normal 9-18 [facility] Comment on above: Order Comment: Speci men Type: BLOOD SPECIMEN Ordering Facility: [facility] Address: [address] [place] [address] Performed By: #### L [id number], 64343-1, 99766-9, 58715-2 #### [facility] CLIA [id number] [address] [place] [address] [place] AST [Catalytic activity/Vol] 15 U/L Normal 13-35 [facility] Comment on above: Order Comment: Speci men Type: BLOOD SPECIMEN Ordering Facility: [facility] Address: [address] [place] [address] Performed By: #### L [id number], 11147-7, 53215-0, 83123-5 #### [facility] CLIA [id number] [address] [place] [address] [place] Bilirubin [Mass/Vol] 0.4 mg/dL Normal 0.2-1.3 [facility] Comment on above: Order Comment: Speci men Type: BLOOD SPECIMEN Ordering Facility: [facility] Address: [address] [place] [address] Performed By: #### L IN0628, 89085-1, 76091-7, 87953-5 #### [facility] CLIA [id number] [address] [place], [place] [address] [place] Calcium [Mass/Vol] 9.6 mg/dL Normal 8.5-10.2 [facility] Comment on above: Order Comment: Speci men Type: BLOOD SPECIMEN Ordering Facility: [facility] Address: [address] [place] [address] Performed By: #### L [id number], 81072-4, 62494-8, 01498-6 #### [facility] CLIA [id number] [address] [place] [address] [place] Chloride [Moles/Vol] 106 mmol/L High 97-105 [facility] Comment on above: Order Comment: Tremayne bill Type: BLOOD SPECIMEN Ordering Facility: [facility] Address: [address] [place] [address] Performed By: #### L [id number], 54215-1, 51087-4, 46033-9 #### [facility] CLIA [id number] [address] [place] [address] [place] CO2 [Moles/Vol] 25 mmol/L Normal 22-30 [facility] Comment on above: Order Comment: Tremayne bill Type: BLOOD SPECIMEN Ordering Facility: [facility] Address: [address] [place] [address] Performed By: #### L [id number], 18930-6, 42269-0, 26635-0 #### [facility] CLIA [id number] [address] [place] [address] [place] Creatinine [Mass/Vol] 1.60 mg/dL High 0.58-0.96 [facility] Comment on above: Order Comment: Tremayne bill Type: BLOOD SPECIMEN Ordering Facility: [facility] Address: [address] [place] [address] Performed By: #### L [id number], 60496-6, 69534-7, 74651-1 #### [facility] CLIA [id number] [address] [place] [address] [place] Creatinine and Glomerular filtration rate.predicted panel (S/P/Bld) 33 mL/min/1.73m??? Low >=60 [facility] Comment on above: Order Comment: Tremayne bill Type: BLOOD SPECIMEN Ordering Facility: [facility] Address: [address] [place] [address] Result Comment: Amy mated Glomerular Filtration Rate [...] reflect actual GFR. Performed By: #### L [id number], 39219-1, 53751-5, 57932-6 #### [facility] CLIA [id number] [place] [address] [place] Glucose [Mass/Vol] 89 mg/dL Normal 74-99 [facility] Comment on above: Order Comment: Tremayne bill Type: BLOOD SPECIMEN Ordering Facility: [facility] Address: [address] [place] [address] Result Comment: The [place] [employer] (ADA) provides guidance for cutoff [...] Standards of Medical Care in Diabetes 2016, [place] [employer]. Diabetes Care. 2016.39(Suppl 1). Performed By: #### L MR7972, 05269-5, 18201-4, 07995-1 #### [facility] CLIA [id number] [address] [place] [address] [place] Potassium [Moles/Vol] 4.2 mmol/L Normal 3.7-5.1 [facility] Comment on above: Order Comment: Tremayne bill Type: BLOOD SPECIMEN Ordering Facility: [facility] Address: [address] [place] [address] Performed By: #### L UV2463, 74081-5, 11189-1, 82684-4 #### [facility] CLIA [id number] [address] [place] [address] [place] Protein [Mass/Vol] 6.5 g/dL Normal 6.3-8.0 [facility] Comment on above: Order Comment: Speci men Type: BLOOD SPECIMEN Ordering Facility: [facility] Address: [address] [place] [address] Performed By: #### L IF1173, 72451-9, 50927-0, 76009-0 #### [facility] CLIA [id number] [address] [place] [address] [place] Sodium [Moles/Vol] 142 mmol/L Normal 136-144 [facility] Comment on above: Order Comment: Speci men Type: BLOOD SPECIMEN Ordering Facility: [facility] Address: [address] [place] [address] Performed By: #### L JU7219, 32886-3, 29088-3, 19187-7 #### [facility] CLIA [id number] [address] [place] [address] [place] Urea nitrogen [Mass/Vol] 30 mg/dL High 7-21 [facility] Comment on above: Order Comment: Speci men Type: BLOOD SPECIMEN Ordering Facility: [facility] Address: [address] [place] [address] Performed By: #### L KS0454, 10839-9, 71110-1, 79709-2 #### [facility] CLIA [id number] [address] [place] [address] [place] ECG COMPLETEon 10-26-2023 ECG COMPLETE Ventricular Rate : 6 4 BPM Atrial Rate : 64 BPM P-R Interval : 172 ms QRS Duration : 93 ms Q-T Interval : 453 ms QTC Calculation(Bazett) : 468 ms Calculated P Waldo : 47 degrees Calculated R Waldo : 69 degrees Calculated T Waldo : 59 degrees Sinus rhythm Left atrial enlargement Minimal ST depression, inferior leads Abnormal ECG 2123 Confirmed by DO BURNETT KATLYN ([id number]), script editor ORESTES GOMEZ ([id number]) on 10/27/2023 1:16:01 PM NAME : CECE HUBBARD PID : [id number] : 1945 Gender : Female Race : ORD : [id number] Procedure Date : Oct 26 2023 21:18:22 Edit Date : Oct 27 2023 13:16:02 Diagnosis: Sinus rhythm Left atrial enlargement Minimal ST depression, inferior leads Abnormal ECG 2123 Confirmed by DO BURNETT KATLYN ([id number]), script editor ORESTES GOMEZ ([id number]) on 10/27/2023 1:16:01 PM Test Reason : Chest Pain Location : 402 : FVED fved23 Overread By : DO BURNETT KATLYN Edited By : ORESTES GOMEZ Referred By : , Acquired by : [id number], Normal [facility] HIGH SENSITIVITY TROPONIN T (INITIAL)on 10-26-2023 Troponin T.cardiac High sensitivity method [Mass/Vol] 18 ng/L High <12 [facility] Comment on above: Order Comment: Tremayne bill Type: BLOOD SPECIMEN Ordering Facility: [facility] Address: [address] [place] [address] Result Comment: When assessing risk for acute [...] 30 day MACE. Performed By: #### L TD5726, 91811-6, 94879-4, 84980-4 #### [facility] CLIA [id number] [address] [place] [address] [place] Magnesium [facility] 10-25 Magnesium [Mass/Vol] 2.0 mg/dL Normal 1.7-2.3 [facility] Comment on above: Order Comment: Tremayne bill Type: BLOOD SPECIMEN Ordering Facility: [facility] Address: [address] [place] [address] Performed By: #### L AA3087, 49138-1, 13251-5, 67377-7 #### [facility] CLIA [id number] [address] [place] [address] [place] NT-proBNP [facility]-ncon 10-25 Natriuretic peptide.B prohormone N-Terminal [Mass/Vol] 456 pg/mL High <450 [facility] Comment on above: Order Comment: Tremayne bill Type: BLOOD SPECIMEN Ordering Facility: [facility] Address: [address] [place] [address] [place] [address] Performed By: #### L TO1482, 60579-7, 72521-6, 93289-6 #### [facility] [id number] [address] [place] [id number] [facility] CNPSusan 10-17-2023 CNPN Telephone (HVICTR) -- CECE HUBBARD ([id number]) 1945 F Date Time Provider Department 10/17/23 ZIYAD GIBBONS HVICTR During your visit today, we recorded the following information about you: Ziyad Gibbons RN 10/17/2023 7:08 PM Signed Spoke to pt's daughter, Barry Church she is the spokes person for p,. She states that pt needs TMVR. Her phone number is [phone] and email [email or web address] I have sent her the usual TMVR [...] Status:Closed by ZIYAD GIBBONS on 10/17/23 Normal [facility] CBC W Auto Differential pane l (Bld)on 10-14-2023 Basophils (Bld) [#/Vol] 0.08 10*3/uL Normal <0.11 [facility] Comment on above: Order Comment: Speci men Type: BLOOD SPECIMEN Ordering Facility: [facility] Address: [address] [place] [address] Performed By: #### 5 7021-8 #### [facility] CLIA [id number] [address] [place] [address] [place] [address] [place] Basophils/100 WBC (Bld) 0.9 % Normal [facility] Comment on above: Order Comment: Speci men Type: BLOOD SPECIMEN Ordering Facility: [facility] Address: [address] [place] [address] Performed By: #### 5 7021-8 #### [facility] CLIA [id number] [address] [place] [address] [place] Differential cell count method Nom (Bld) Auto Normal [facility] Comment on above: Order Comment: Speci men Type: BLOOD SPECIMEN Ordering Facility: [facility] Address: [address] [place] [address] Performed By: #### 5 7021-8 #### [facility] CLIA [id number] [address] [place] [address] [place] Eosinophils (Bld) [#/Vol] 0.24 10*3/uL Normal <0.46 [facility] Comment on above: Order Comment: Speci men Type: BLOOD SPECIMEN Ordering Facility: [facility] Address: [address] [place] [address] Performed By: #### 5 7021-8 #### [facility] CLIA [id number] [address] [place] [address] [place] Eosinophils/100 WBC (Bld) 2.8 % Normal [facility] Comment on above: Order Comment: Speci men Type: BLOOD SPECIMEN Ordering Facility: [facility] Address: [address] [place] [address] Performed By: #### 5 7021-8 #### [facility] CLIA [id number] [address] [place] [address] [place] Erythrocyte distribution width (RBC) [Ratio] 13.7 % Normal 11.5-15.0 [facility] Comment on above: Order Comment: Speci men Type: BLOOD SPECIMEN Ordering Facility: [facility] Address: [address] [place] [address] Performed By: #### 5 7021-8 #### [facility] CLIA [id number] [address] [place] [address] [place] Hematocrit (Bld) [Volume fraction] 37.1 % Normal 36.0-46.0 [facility] Comment on above: Order Comment: Speci men Type: BLOOD SPECIMEN Ordering Facility: [facility] Address: [address] [place] [address] Performed By: #### 5 7021-8 #### [facility] CLIA [id number] [address] [place] [address] [place] Hemoglobin (Bld) [Mass/Vol] 12.3 g/dL Normal 11.5-15.5 [facility] Comment on above: Order Comment: Speci men Type: BLOOD SPECIMEN Ordering Facility: [facility] Address: [address] [place] [address] Performed By: #### 5 7021-8 #### [facility] CLIA [id number] [address] [place] [address] [place] Immature granulocytes (Bld) [#/Vol] 10*3/uL Normal <0.10 [facility] Comment on above: Order Comment: Speci men Type: BLOOD SPECIMEN Ordering Facility: [facility] Address: [address] [place] [address] Performed By: #### 5 7021-8 #### [facility] CLIA [id number] [address] [place] [address] [place] Immature granulocytes/100 WBC (Bld) 0.2 % Normal [facility] Comment on above: Order Comment: Speci men Type: BLOOD SPECIMEN Ordering Facility: [facility] Address: [address] [place] [address] Performed By: #### 5 7021-8 #### [facility] CLIA [id number] [address] [place] [address] [place] Lymphocytes (Bld) [#/Vol] 2.43 10*3/uL Normal 1.00-4.00 [facility] Comment on above: Order Comment: Speci men Type: BLOOD SPECIMEN Ordering Facility: [facility] Address: [address] [place] [address] Performed By: #### 5 7021-8 #### [facility] CLIA [id number] [address] [place] [address] [place] Lymphocytes/100 WBC (Bld) 28.5 % Normal [facility] Comment on above: Order Comment: Speci men Type: BLOOD SPECIMEN Ordering Facility: [facility] Address: [address] [place] [address] Performed By: #### 5 7021-8 #### [facility] CLIA [id number] [address] [place] [address] [place] MCH (RBC) [Entitic mass] 31.5 pg Normal 26.0-34.0 [facility] Comment on above: Order Comment: Speci men Type: BLOOD SPECIMEN Ordering Facility: [facility] Address: [address] [place] [address] Performed By: #### 5 7021-8 #### [facility] CLIA [id number] [address] [place] [address] [place] MCHC (RBC) [Mass/Vol] 33.2 g/dL Normal 30.5-36.0 [facility] Comment on above: Order Comment: Speci men Type: BLOOD SPECIMEN Ordering Facility: [facility] Address: [address] [place] [address] Performed By: #### 5 7021-8 #### [facility] CLIA [id number] [address] [place] [address] [place] MCV (RBC) [Entitic vol] 95.1 fL Normal 80.0-100.0 [facility] Comment on above: Order Comment: Speci men Type: BLOOD SPECIMEN Ordering Facility: [facility] Address: [address] [place] [address] Performed By: #### 5 7021-8 #### [facility] CLIA [id number] [address] [place] [address] [place] Monocytes (Bld) [#/Vol] 1.05 10*3/uL High <0.87 [facility] Comment on above: Order Comment: Speci men Type: BLOOD SPECIMEN Ordering Facility: [facility] Address: [address] [place] [address] Performed By: #### 5 7021-8 #### [facility] CLIA [id number] [address] [place] [address] [place] Monocytes/100 WBC (Bld) 12.3 % Normal [facility] Comment on above: Order Comment: Speci men Type: BLOOD SPECIMEN Ordering Facility: [facility] Address: [address] [place] [address] Performed By: #### 5 7021-8 #### [facility] CLIA [id number] [address] [place] [address] [place] Neutrophils (Bld) [#/Vol] 4.70 10*3/uL Normal 1.45-7.50 [facility] Comment on above: Order Comment: Speci men Type: BLOOD SPECIMEN Ordering Facility: [facility] Address: [address] [place] [address] Performed By: #### 5 7021-8 #### [facility] CLIA [id number] [address] [place] [address] [place] Neutrophils/100 WBC (Bld) 55.3 % Normal [facility] Comment on above: Order Comment: Speci men Type: BLOOD SPECIMEN Ordering Facility: [facility] Address: [address] [place] [address] Performed By: #### 5 7021-8 #### [facility] CLIA [id number] [address] [place] [address] [place] Nucleated RBC (Bld) [#/Vol] 10*3/uL Normal <0.01 [facility] Comment on above: Order Comment: Speci men Type: BLOOD SPECIMEN Ordering Facility: [facility] Address: [address] [place] [address] Performed By: #### 5 7021-8 #### [facility] CLIA [id number] [address] [place] [address] [place] Nucleated RBC/100 WBC (Bld) [Ratio] 0.0 /100 WBC Normal [facility] Comment on above: Order Comment: Speci men Type: BLOOD SPECIMEN Ordering Facility: [facility] Address: [address] [place] [address] Performed By: #### 5 7021-8 #### [facility] CLIA [id number] [address] [place] [address] [place] Platelet mean volume (Bld) [Entitic vol] 10.7 fL Normal 9.0-12.7 [facility] Comment on above: Order Comment: Speci men Type: BLOOD SPECIMEN Ordering Facility: [facility] Address: [address] [place] [address] Performed By: #### 5 7021-8 #### [facility] CLIA [id number] [address] [place] [address] [place] Platelets (Bld) [#/Vol] 219 10*3/uL Normal 150-400 [facility] Comment on above: Order Comment: Speci men Type: BLOOD SPECIMEN Ordering Facility: [facility] Address: [address] [place] [address] Performed By: #### 5 7021-8 #### [facility] CLIA [id number] [address] [place] [address] [place] RBC (Bld) [#/Vol] 3.90 10*6/uL Normal 3.90-5.20 [facility] Comment on above: Order Comment: Speci men Type: BLOOD SPECIMEN Ordering Facility: [facility] Address: [address] [place] [address] Performed By: #### 5 7021-8 #### [facility] CLIA [id number] [address] [place] [address] [place] WBC (Bld) [#/Vol] 8.52 10*3/uL Normal 3.70-11.00 [facility] Comment on above: Order Comment: Speci men Type: BLOOD SPECIMEN Ordering Facility: [facility] Address: [address] [place] [address] Performed By: #### 5 7021-8 #### [facility] CLIA [id number] [address] [place] [address] [place] Comprehensive metabolic 2000 panelon 10-14-2023 Albumin [Mass/Vol] 4.0 g/dL Normal 3.9-4.9 [facility] Comment on above: Order Comment: Speci men Type: BLOOD SPECIMENOrdering Facility: [facility] Address: [address] [place] [address] Performed By: #### 2 4323-8, HSTNT, 23132-1, 47136-8 ####[facility] [id number] [place] [address] [place] ALP [Catalytic activity/Vol] 111 U/L Normal 34-123 [facility] Comment on above: Order Comment: Speci men Type: BLOOD SPECIMENOrdering Facility: [facility] Address: [address] [place] [address] Performed By: #### 2 4323-8, HSTNT, 06674-4, 39323-6 ####[facility] [id number] [place] [address] [place] ALT [Catalytic activity/Vol] 13 U/L Normal 7-38 [facility] Comment on above: Order Comment: Speci men Type: BLOOD SPECIMENOrdering Facility: [facility] Address: [address] [place] [address] Performed By: #### 2 4323-8, HSTNT, 59030-8, 43590-2 ####[facility] [id number] [address] [address] [place] Anion gap [Moles/Vol] 13 mmol/L Normal 9-18 [facility] Comment on above: Order Comment: Speci men Type: BLOOD SPECIMENOrdering Facility: [facility] Address: [address] [place] [address] Performed By: #### 2 4323-8, HSTNT, 06410-8, 17204-3 ####[facility] [id number] [place] [address] [place] AST [Catalytic activity/Vol] 14 U/L Normal 13-35 [facility] Comment on above: Order Comment: Speci men Type: BLOOD SPECIMENOrdering Facility: [facility] Address: [address] [place] [address] Performed By: #### 2 4323-8, HSTNT, 04627-3, 72763-5 ####[facility] [id number] [place] [id number] [place] Bilirubin [Mass/Vol] 0.5 mg/dL Normal 0.2-1.3 [facility] Comment on above: Order Comment: Speci men Type: BLOOD SPECIMENOrdering Facility: [facility] Address: [address] [place] [address] Performed By: #### 2 4323-8, HSTNT, 84225-2, 01083-0 ####[facility] [id number] [place] [id number] [place] Calcium [Mass/Vol] 9.4 mg/dL Normal 8.5-10.2 [facility] Comment on above: Order Comment: Speci men Type: BLOOD SPECIMENOrdering Facility: [facility] Address: [address] [place] [address] Performed By: #### 2 4323-8, HSTNT, 91012-4, 29353-8 ####[facility] [id number] [place] [id number] [place] Chloride [Moles/Vol] 105 mmol/L Normal 97-105 [facility] Comment on above: Order Comment: Speci men Type: BLOOD SPECIMENOrdering Facility: [facility] Address: [address] [place] [address] Performed By: #### 2 4323-8, HSTNT, 82801-9, 17469-6 ####[facility] [id number] [place] [address] [place] CO2 [Moles/Vol] 22 mmol/L Normal 22-30 [facility] Comment on above: Order Comment: Speci men Type: BLOOD SPECIMENOrdering Facility: [facility] Address: [address] [place] [address] Performed By: #### 2 4323-8, HSTNT, 68409-7, 05363-6 ####[facility] [id number] [place] [address] [place] Creatinine [Mass/Vol] 1.36 mg/dL High 0.58-0.96 [facility] Comment on above: Order Comment: Speci men Type: BLOOD SPECIMENOrdering Facility: [facility] Address: [address] [place] [address] Performed By: #### 2 4323-8, HSTNT, 12588-8, 90969-7 ####[facility] [id number] [place] [address] [place] Creatinine and Glomerular filtration rate.predicted panel (S/P/Bld) 40 mL/min/1.73m??? Low >=60 [facility] Comment on above: Order Comment: Speci men Type: BLOOD SPECIMENOrdering Facility: [facility] Address: [address] [place] [address] Result Comment: Amy mated Glomerular Filtration Rate [...] GFR. Performed By: #### 2 4323-8, HSTNT, 57656-9, 37145-2 ####[facility] [id number] [address] [address] [place] Glucose [Mass/Vol] 103 mg/dL High 74-99 [facility] Comment on above: Order Comment: Speci men Type: BLOOD SPECIMENOrdering Facility: [facility] Address: [address] [place] [address] Result Comment: The [place] [employer] (ADA) provides guidance for cutoff [...] Standards of Medical Care in Diabetes 2016, [place] [employer]. Diabetes Care. 2016.39(Suppl 1). Performed By: #### 2 4323-8, HSTNT, 97900-5, 46956-9 ####[facility] [id number] [place] [id number] [place] Potassium [Moles/Vol] 4.6 mmol/L Normal 3.7-5.1 [facility] Comment on above: Order Comment: Speci men Type: BLOOD SPECIMENOrdering Facility: [facility] Address: [address] [place] [address] Performed By: #### 2 4323-8, HSTNT, 64756-8, 22907-8 ####[facility] [id number] [address] [address] [place] Protein [Mass/Vol] 6.3 g/dL Normal 6.3-8.0 [facility] Comment on above: Order Comment: Speci men Type: BLOOD SPECIMENOrdering Facility: [facility] Address: [address] [place] [address] Performed By: #### 2 4323-8, HSTNT, 49856-3, 94409-8 ####[facility] [id number] [place] [address] [place] Sodium [Moles/Vol] 140 mmol/L Normal 136-144 [facility] Comment on above: Order Comment: Speci men Type: BLOOD SPECIMENOrdering Facility: [facility] Address: [address] [place] [address] Performed By: #### 2 4323-8, HSTNT, 86759-2, 70692-8 ####[facility] [id number] [place] [id number] [place] Urea nitrogen [Mass/Vol] 21 mg/dL Normal 7-21 [facility] Comment on above: Order Comment: Speci men Type: BLOOD SPECIMENOrdering Facility: [facility] Address: [address] [place] [address] Performed By: #### 2 4323-8, HSTNT, 71351-5, 39030-8 ####[facility] [id number] [place] [id number] [place] D dimer FEU PPP-mCncon 10-13 Fibrin D-dimer FEU (PPP) [Mass/Vol] 410 ng/mL FEU Normal <500 [facility] Comment on above: Order Comment: Speci men Type: BLOOD SPECIMENOrdering Facility: [facility] Address: [address] [place] [address] Performed By: #### 4 8065-7, 61339-3 ####[facility] [id number] [place] [address] [id number] [place] [id number] 10-14-2023 ECG01 Ventricular Rate : 6 3 BPM Atrial Rate : 63 BPM P-R Interval : 158 ms QRS Duration : 72 ms Q-T Interval : 420 ms QTC Calculation(Bazett) : 429 ms Calculated P Waldo : 31 degrees Calculated R Waldo : 63 degrees Calculated T Waldo : 61 degrees NORMAL SINUS RHYTHM NORMAL ECG Confirmed by MD ODOM MATTHEW ([id number]), script editor JOI CAGLE ([id number]) on 10/17/2023 7:48:10 AM NAME : CECE HUBBARD PID : [id number] : 1945 Gender : Female Race : ORD : Procedure Date : Oct 13 2023 23:03:23 Edit Date : Oct 17 2023 07:48:14 Diagnosis: NORMAL SINUS RHYTHM NORMAL ECG Confirmed by MD ODOM MATTHEW ([id number]), script editor JOI CAGLE ([id number]) on 10/17/2023 7:48:10 AM Test Reason : Location : 2 : [facility] 017 Overread By : MD ODOM MATTHEW Edited By : JOI CAGLE Referred By : , Acquired by : MS, Normal [facility] ED NOTEon 10-14-2023 ED NOTE HNO ID: [id number] Author: GILMER BERRY RN Service: Emergency Medicine Author Type: Registered Nurse Type: ED Notes Filed: 10/14/2023 07:37 Note Text: Discussed discharge paperwork, follow-up and signs AND sx of when to return to the ER with patient. Patient verbalizes understanding and left with AVS in hand, ambulatory, steady gait, NAD. Normal [facility] ED NOTE HNO ID: [id number] Author: SENIA NUÑEZ CT Service: Emergency Medicine Author Type: Clinical [employer] Fabric Inspector Type: ED Notes Filed: 10/14/2023 01:08 Note Text: Updating pt vs Normal [facility] ED PROV NOTEon 10-14-2023 ED PROV NOTE HNO ID: [id number] Author: CHRISTIE PEÑALOZA MD Service: Emergency Medicine Author Type: Physician Type: ED Provider Notes Filed: 10/16/2023 00:13 Note Text: ED Provider Note Patient Name: Cece Hubbard : 1945 SERVICE DATE: 10/13/23 History Patient presents with: Shortness of Breath: For a couple days started on amio and eliquis for Afib 78-year-old female with history of mitral valve disease diagnosed at a hospital in [place] and recent atrial fibrillation who has been [...] src Resp SpO2 Weight Height 10/13/23 2255 10/13/235 10/13/23225410/14/23 0106 10/13/23225410/13/23225410/13/232254 -- 180/91 71 36.6 ?C [...] Abnormal; Notable for the following components: Abs Daggett 1.05 (*) <0.87 k/uL All other components [...] ng/mL FEU. (more content not included)... Normal [facility] ED Triage Noteon 10-14-2023 ED Triage Note HNO ID: [id number] Author: GORAN SOLIZ JR, MD Service: Emergency [...] bedside clinician. SIGNATURE: Goran Soliz MD Normal [facility] Fibrin D-dimer FEU (PPP) [Ma ss/Vol]on 10-14-2023 D DIMER AGE-RELATED CUTOFF 770 ng/mL FEU Normal [facility] Comment on above: Order Comment: Speci men Type: BLOOD SPECIMENOrdering Facility: [facility] Address: [address] [place] [address] Performed By: #### 4 8065-7, 37616-9 ####[facility] [id number] [place] [address] [place] HIGH SENSITIVITY TROPONIN To n 10-14-2023 Troponin T.cardiac High sensitivity method [Mass/Vol] 20 ng/L High <12 [facility] Comment on above: Order Comment: Speci men Type: BLOOD SPECIMENOrdering Facility: [facility] Address: [address] [place] [address] Result Comment: When assessing risk for acute [...] MACE. Performed By: #### 2 4323-8, HSTNT, 73671-4, 86949-5 ####[facility] [id number] [place] [address] [place] HIGH SENSITIVITY TROPONIN T (INITIAL)on 10-14-2023 Troponin T.cardiac High sensitivity method [Mass/Vol] 18 ng/L High <12 [facility] Comment on above: Order Comment: [place]rem[place]ne bill Type: BLOOD SPECIMENOrdering Facility: [facility] Address: [address] [place] [address] Result Comment: When assessing risk for acute [...] 30 day MACE. Performed By: #### L [id number] ####[facility] [id number] [place] [address] [place] HIGH SENSITIVITY TROPONIN T (SECOND)on 10-14-2023 Troponin T.cardiac High sensitivity method [Mass/Vol] 19 ng/L High <12 [facility] Comment on above: Order Comment: Tremayne bill Type: BLOOD SPECIMENOrdering Facility: [facility] Address: [address] [place] [address] Result Comment: When assessing risk for acute [...] 30 day MACE. Performed By: #### L [id number] ####[facility] [id number] [place] [address] [place] Magnesium [facility] 10-13 Magnesium [Mass/Vol] 1.9 mg/dL Normal 1.7-2.3 [facility] Comment on above: Order Comment: Speci men Type: BLOOD SPECIMENOrdering Facility: [facility] Address: [address] [place] [address] Performed By: #### 2 4323-8, HSTNT, 65671-3, 67481-8 ####[facility] [id number] [place] [address] [place] NT-proBNP [facility] 10-13 Natriuretic peptide.B prohormone N-Terminal [Mass/Vol] 719 pg/mL High <450 [facility] Comment on above: Order Comment: Tremayne bill Type: BLOOD SPECIMENOrdering Facility: [facility] Address: [address] [place] [address] Performed By: #### 2 4323-8, HSTNT, 98430-5, 84225-2 ####[facility] [id number] [place] [address] [place] PT panel Coag (PPP)on 2023 INR Coag (PPP) [Relative time] 1.1 {INR} Normal 0.9-1.3 [facility] Comment on above: Order Comment: Tremayne bill Type: BLOOD SPECIMENOrdering Facility: [facility] Address: [address] [place] [address] Result Comment: Janeth min K Antagonist (VKA) Therapeutic Range: INR 2 to 3 (Target INR of 2.5) Note: For patients treated with VKA drugs, such as warfarin, the [place] [employer] 2012 Guideline recommends [...] Chest 2012, 141:7S-47S Mary RA, et al. [facility] 2017, 70: 252-289 Performed By: #### 4 8065-7, 57375-2 ####[facility] [id number] [place] [address] [place] PT Coag (PPP) [Time] 11.3 s Normal 9.7-13.0 [facility] Comment on above: Order Comment: Speci men Type: BLOOD SPECIMENOrdering Facility: [facility] Address: [address] [place] [address] Performed By: #### 4 8065-7, 39720-0 ####[facility] [id number] [place] [address] [place] XR CHEST 1V [...] IMPRESSION: Small pleural effusions and/or pleural thickening. Pharmacy Account Director: SCOTT Transcribe Date/Time: Oct 14 2023 3:07A Dictated by : WADE BOWMAN DO This examination was interpreted and the report reviewed and electronically signed by: MEHDI ROBLEDO MD on Oct 14 2023 3:35AM EST [id number] [facility] 36on 09-22-2023 36 Patient returned our phone call to get Cardiopulmonary Exercise Test scheduled. She told staff that she is not going to do this test and wanted us to inform her provider. When asked why she did not want to do it, she replied that she just doesn't want to. We will inform provider. [facility] 36on 09-19-2023 36 Left voicemail for p atient to schedule cardiopulmonary exercise test. [facility] Office Visiton 09-03-2023 Follow-up visit [id number] Brandi Hubbard cca 1945 F Date Provider Department Center 09/03/2023 EDWIN PETERS ALNA Rodríguez Family History Problem Relation Age of Onset Coronary artery disease Father Hypertension Father Family Status - Relation Status Age at Father Level of Service:77049 [place] OFFICE/OUTPATIENT ESTABLISHED MOD MDM 30 MIN [facility] Documentationon 08-06-2023 Documentation [id number] Brandi Hubbard cca 1945 F Date Provider Department Center 08/06/2023 [facility] [place] HeartVAS Family History Problem Relation Age of Onset Coronary artery disease Father Hypertension Father Family Status - Relation Status Age at Father [facility] HPon 08-06-2023 HP H&P reviewed. The pa patrick was examined and there are no changes to the H&P. [facility] NURSNOTEon 08-06-2023 NURSNOTE Patient to be seen i n clinic by Dr. Blunt or nurse practitioner in 1 month to discuss VIOLA results and medical plan. Message left with [facility] to call patient with appoint date and time. Patient provided the number ([phone]) to call [facility] if she does not receive an appointment call by 08/08/2023. [facility] NURSNOTE Bedside swallow stud y completed and passed. [facility] NURSNOTE RN educated pt on d/ c instructions. RN encouraged pt to voice any questions or concerns. Pt verbalizes no questions or concerns at this time. Pt was wheeled off of unit with all of belongings. [facility] Prep for Procedureon 023 Prep for Procedure [id number] Opal Hubbardjoel Wilson 1945 Date Provider Department [place] 08/06/2023 EDWIN PETERS [facility] LANA Cook Family History Problem Relation Age of Onset Coronary artery disease Father Hypertension Father Family Status - Relation Status Age at Father [facility] Telephoneon 07-28-2023 Telephone [id number] StevieOpaljoel Wilson 1945 Provider Department [place] 07/28/2023 [facility] [place] HeartVAS Family History Problem Relation Age of Onset Coronary artery disease Father Hypertension Father Family Status - Relation Status Age at Father [facility] 37on 07-08-2023 37 *Resume lasix. Take 20mg daily x1 week then go back to every other day. *Have stress test done. *Watch your fluid intake. Try to limit to 2 liters a day. *Eat a low sodium diet. [facility] HPon 07-08-2023 HP Patient here for [facility] TB for SOB and chest pain. She was started on isosorbide. She is scheduled for outpatient stress test next week. She denies chest pain. SOB is improving. C/o LE edema which resolves by morning. C/o fatigue. Review of Systems Cardiovascular: Positive for leg swelling. All other systems reviewed and are negative. [facility] Office Visiton 07-08-2023 Follow-up visit [id number] Stevie,Brandijoel Wilson 1945 Date Provider Department Center 07/08/2023 Lila-DINORAH MONTES LANA Rodríguez Family History Problem Relation Age of Onset Coronary artery disease Father Hypertension Father Family Status - Relation Status Age at Father Level of Service:44154 [place] OFFICE/OUTPATIENT ESTABLISHED MOD MDM 30-39 MIN Reason for Visit and Comments: Fatigue [46] Congestive Heart Failure [127] Edema [9029391612] Shortness of Breath [338690] Normal [facility] Office Visiton 03-28-2023 Follow-up visit [id number] Brandi Hubbard cca Steve 1945 F Date Provider Department Center 03/28/2023 EDWIN PETERS [facility] Family History Problem Relation Age of Onset Coronary artery disease Father Hypertension Father Family Status - Relation Status Age at Father Level of Service:36973 [place] OFFICE/OUTPATIENT ESTABLISHED LOW MDM 20-29 MIN Reason for Visit and Comments: Follow-up [223895] - [address] UP [address] [facility] INSULINon 11-13-2022 Insulin 16.2 uIU/mL Normal 2.6-24.9 [facility] Comment on above: Performed By: #### I NSULIN ####[facility] [id number] [address]Dr. Isi Britton CBC AUTO DIFFon 11-12-2022 BASO # 0.0 103/ul Normal 0.0-0.1 [facility] Comment on above: Performed By: #### C BC #### [facility] [address] [address] [address] Isi Britton Basophils/100 WBC (Bld) 0.6 % Normal 0.2-2.0 [facility] Comment on above: Performed By: #### C BC #### [facility] [address] [place] [address] Dr. Isi Britton EO # 0.1 103/ul Normal 0.0-0.7 [facility] Comment on above: Performed By: #### C BC #### [facility] [address] [address] [address] Isi Britton Eosinophils/100 WBC (Bld) 1.3 % Normal 0.9-7.0 [facility] Comment on above: Performed By: #### C BC #### [facility] [address] [place] [address] Dr. Isi Britton Erythrocyte distribution width (RBC) [Ratio] 13.1 % Normal 11.0-15.0 [facility] Comment on above: Performed By: #### C BC #### [facility] [address] [place] [address] Dr. Isi Britton Hematocrit (Bld) [Volume fraction] 40.1 % Normal 36.0-48.0 [facility] Comment on above: Performed By: #### C BC #### [facility] [address] [place] [address] Dr. Isi Britton Hemoglobin (Bld) [Mass/Vol] 13.5 g/dL Normal 12.0-16.0 [facility] Comment on above: Performed By: #### C BC #### [facility] [address] [place] [address] Dr. Isi Britton IG # 0.01 10e3/ul Normal 0.00-0.03 [facility] Comment on above: Performed By: #### C BC #### [facility] [address] [place] [address] Dr. Isi Britton IG % 0.2 % Normal 0.0-0.5 [facility] Comment on above: Performed By: #### C BC #### [facility] [address] [place] [address] Dr. Isi Britton LYMPH # 1.6 103/ul Normal 1.2-3.8 [facility] Comment on above: Performed By: #### C BC #### [facility] [address] [place] [address] Dr. Isi Britton Lymphocytes/100 WBC (Bld) 24.9 % Normal 20.5-60.0 [facility] Comment on above: Performed By: #### C BC #### [facility] [address] [place] [address] Dr. Isi Britton MANUAL DIFF REQ NO Normal [facility] Comment on above: Performed By: #### C BC #### [facility] [address] [place] [address] Dr. Isi Britton MCH (RBC) [Entitic mass] 31.9 pg Normal 26.7-34.0 [facility] Comment on above: Performed By: #### C BC #### [facility] [address] [place] [address] Dr. Isi Britton MCHC (RBC) [Mass/Vol] 33.7 g/dL Normal 29.9-35.2 [facility] Comment on above: Performed By: #### C BC #### [facility] [address] [place] [address] Dr. Isi Britton MCV (RBC) [Entitic vol] 94.8 fL Normal 81.0-99.0 [facility] Comment on above: Performed By: #### C BC #### [facility] [address] [place] [address] Dr. Isi Britton MONO # 0.6 103/ul Normal 0.3-0.8 [facility] Comment on above: Performed By: #### C BC #### [facility] [address] [place] [address] Dr. Isi Britton Monocytes/100 WBC (Bld) 10.1 % Normal 1.7-12.0 [facility] Comment on above: Performed By: #### C BC #### [facility] [address] [place] [address] Dr. Isi Britton NEUT # 3.9 103/ul Normal 1.4-6.5 [facility] Comment on above: Performed By: #### C BC #### [facility] [address] [place] [address] Dr. Isi Britton Neutrophils/100 WBC (Bld) 62.9 % Normal 43.0-75.0 [facility] Comment on above: Performed By: #### C BC #### [facility] [address] [place] [address] Dr. Isi Britton Platelet mean volume (Bld) [Entitic vol] 10.5 fL Normal 9.5-13.5 [facility] Comment on above: Performed By: #### C BC #### [facility] [address] [place] [address] Dr. Isi Britton PLT 220 103/ul Normal 150-450 [facility] Comment on above: Performed By: #### C BC #### [facility] [address] [address] [address] Isi Britton RBC 4.23 106/ul Normal 4.20-5.40 [facility] Comment on above: Performed By: #### C BC #### [facility] [address] [address] [address] Isi Britton WBC 6.2 103/ul Normal 4.0-11.0 [facility] Comment on above: Performed By: #### C BC #### [facility] [address] [address] [address] Isi Britton FREE T3on 11-12-2022 FREE T3 2.21 pg/mlL Normal 2.18-3.98 [facility] Comment on above: Performed By: #### L IPID, CMP, T7, FT3, TSH #### [facility] [address] [place] [address] Dr. Isi Britton FREE T4on 11-12-2022 Free T4 [Mass/Vol] 1.04 ng/dL Normal 0.76-1.46 [facility] Comment on above: Performed By: #### I RONI, FT4 ####[facility] [id number] [address]Dr. Isi Britton FREE THYROXINE INDEX T7on FTI 3.38 Normal 1.30-4.50 [facility] Comment on above: Performed By: #### L IPID, CMP, T7, FT3, TSH #### [facility] [address] [address] [address] Isi Britton T3U 36.0 % Normal 30.0-39.0 [facility] Comment on above: Performed By: #### L IPID, CMP, T7, FT3, TSH #### [facility] [address] [place] [address] Dr. Isi Britton T4 [Mass/Vol] 9.40 ug/dL Normal 4.80-13.90 [facility] Comment on above: Performed By: #### L IPID, CMP, T7, FT3, TSH #### [facility] [address] [place] [address] Dr. Isi Britton GLYCOHEMOGLOBIN A1Con 2022 ADA RECOMMENDATION SEE BELOW Normal [facility] Comment on above: Result Comment: ADA RECOMMENDED LIMIT 4.0 - 6.0 ADA THERAPEUTIC TARGET < 7.0 ACTION SUGGESTED > 7.0 Performed By: #### A 1C #### [facility] [address] [place] [address] Dr. Isi Britton Glucose [Mass/Vol] 111 mg/dL Normal [facility] Comment on above: Performed By: #### A 1C #### [facility] [address] [place] [address] Dr. Isi Britton HbA1c (Bld) [Mass fraction] 5.5 % Normal 4.5-6.2 [facility] Comment on above: Performed By: #### A 1C #### [facility] [address] [place] [address] Dr. Isi Britton IRONon 11-12-2022 Iron [Mass/Vol] 71.0 ug/dL Normal 50.0-170.0 [facility] Comment on above: Performed By: #### I RONI, FT4 #### [facility] [address] [place] [address] Dr. Isi Britton LIPID PROFILEon 11-12-2022 CHOL-HDL RATIO NORM SEE BELOW Normal [facility] Comment on above: Result Comment: 3.3 - 4.4 LOW RISK 4.4 - 7.1 AVERAGE RISK 7.1 - 11.0 MODERATE RISK >11.0 HIGH RISK Performed By: #### L IPID, CMP, T7, FT3, TSH #### [facility] [address] [place] [address] Dr. Isi Britton Cholesterol [Mass/Vol] 139 mg/dL Normal <=200 [facility] Comment on above: Performed By: #### L IPID, CMP, T7, FT3, TSH #### [facility] [address] [place] [address] Dr. Isi Britton Cholesterol in HDL [Mass/Vol] 70 mg/dL Critically high 40-60 [facility] Comment on above: Performed By: #### L IPID, CMP, T7, FT3, TSH #### [facility] [address] [address] [address] Isi Britton Cholesterol in LDL [Mass/Vol] 49.4 mg/dL Normal [facility] Comment on above: Performed By: #### L IPID, CMP, T7, FT3, TSH #### [facility] [address] [address] [address] Isi Britton Cholesterol.total/Chol esterol in HDL [Mass ratio] 2.0 {ratio} Normal [facility] Comment on above: Performed By: #### L IPID, CMP, T7, FT3, TSH #### [facility] [address] [place] [address] Dr. Isi Britton HDL NORMAL > or = 60 mg/dl - LO W CARDIOVASCULAR RISK <40 mg/dl - HIGH CARDIOVASCULAR RISK Normal [facility] Comment on above: Performed By: #### L IPID, CMP, T7, FT3, TSH #### [facility] [address] [place] [address] Dr. Isi Britton LDL CALC NORMAL SEE BELOW Normal [facility] Comment on above: Result Comment: <100 mg/dl OPTIMAL 100 - 129 mg/dl NEAR OR ABOVE OPTIMAL 130 - 159 mg/dl BORDERLINE HIGH 160 - 189 mg/dl HIGH >190 mg/dl VERY HIGH Performed By: #### L IPID, CMP, T7, FT3, TSH #### [facility] [address] [address] [address] Isi Britton Triglyceride [Mass/Vol] 98 mg/dL Normal <=150 [facility] Comment on above: Performed By: #### L IPID, CMP, T7, FT3, TSH #### [facility] [address] [place] [address] Dr. Isi Britton VLDL CALC 19.6 mg/dL Normal [facility] Comment on above: Performed By: #### L IPID, CMP, T7, FT3, TSH #### [facility] [address] [place] [address] Dr. Isi Britton PROF 14(COMP METB)on 023 Albumin [Mass/Vol] 3.9 g/dL Normal 3.4-5.0 [facility] Comment on above: Performed By: #### L IPID, CMP, T7, FT3, TSH #### [facility] [address] [place] [address] Dr. Isi Britton Albumin/Globulin [Mass ratio] 1.2 {ratio} Normal [facility] Comment on above: Performed By: #### L IPID, CMP, T7, FT3, TSH #### [facility] [address] [place] [address] Dr. Isi Britton ALP [Catalytic activity/Vol] 99 U/L Normal 46-116 [facility] Comment on above: Performed By: #### L IPID, CMP, T7, FT3, TSH #### [facility] [address] [place] [address] Dr. Isi Britton ALT [Catalytic activity/Vol] 26 U/L Normal 14-59 [facility] Comment on above: Performed By: #### L IPID, CMP, T7, FT3, TSH #### [facility] [address] [place] [address] Dr. Isi Britton Anion gap [Moles/Vol] 13.1 mmol/L Normal [facility] Comment on above: Performed By: #### L IPID, CMP, T7, FT3, TSH #### [facility] [address] [place] [address] Dr. Isi Britton AST [Catalytic activity/Vol] 20 U/L Normal 15-37 [facility] Comment on above: Performed By: #### L IPID, CMP, T7, FT3, TSH #### [facility] [address] [place] [address] Dr. Isi Britton Bilirubin [Mass/Vol] 0.9 mg/dL Normal 0.2-1.0 [facility] Comment on above: Performed By: #### L IPID, CMP, T7, FT3, TSH #### [facility] [address] [place] [address] Dr. Isi Britton Calcium [Mass/Vol] 9.4 mg/dL Normal 8.5-10.1 [facility] Comment on above: Performed By: #### L IPID, CMP, T7, FT3, TSH #### [facility] [address] [place] [address] Dr. Isi Britton Chloride [Moles/Vol] 104 mmol/L Normal 98-107 [facility] Comment on above: Performed By: #### L IPID, CMP, T7, FT3, TSH #### [facility] [address] [place] [address] Dr. Isi Britton CO2 [Moles/Vol] 29.2 mmol/L Normal 21.0-32.0 [facility] Comment on above: Performed By: #### L IPID, CMP, T7, FT3, TSH #### [facility] [address] [place] [address] Dr. Isi Britton Creatinine [Mass/Vol] 1.36 mg/dL Critically high 0.55-1.02 [facility] Comment on above: Performed By: #### L IPID, CMP, T7, FT3, TSH #### [facility] [address] [place] [address] Dr. Isi Britton EGFR-AF PALAUAN 46 mL/min/1.73m2 Critically low >=60 [facility] Comment on above: Performed By: #### L IPID, CMP, T7, FT3, TSH #### [facility] [address] [place] [address] Dr. Isi Britton EGFR-NON AF PALAUAN 38 mL/min/1.73m2 Critically low >=60 [facility] Comment on above: Performed By: #### L IPID, CMP, T7, FT3, TSH #### [facility] [address] [place] [address] Dr. Isi Britton Globulin (S) [Mass/Vol] 3.3 g/dL Normal [facility] Comment on above: Performed By: #### L IPID, CMP, T7, FT3, TSH #### [facility] [address] [place] [address] Dr. Isi Britton Glucose [Mass/Vol] 107 mg/dL Critically high 74-[address] [facility] Comment on above: Performed By: #### L IPID, CMP, T7, FT3, TSH #### [facility] [address] [place] [address] Dr. Isi Britton Potassium [Moles/Vol] 4.3 mmol/L Normal 3.5-5.1 [facility] Comment on above: Performed By: #### L IPID, CMP, T7, FT3, TSH #### [facility] [address] [place] [address] Dr. Isi Britton Protein [Mass/Vol] 7.2 g/dL Normal 6.4-8.2 [facility] Comment on above: Performed By: #### L IPID, CMP, T7, FT3, TSH #### [facility] [address] [place] [address] Dr. Isi Britton Sodium [Moles/Vol] 142 mmol/L Normal 136-145 [facility] Comment on above: Performed By: #### L IPID, CMP, T7, FT3, TSH #### [facility] [address] [place] [address] Dr. Isi Britton Urea nitrogen [Mass/Vol] 24.0 mg/dL Critically high 7.0-18.0 [facility] Comment on above: Performed By: #### L IPID, CMP, T7, FT3, TSH #### [facility] [address] [place] [address] Dr. Isi Britton Urea nitrogen/Creatinine [Mass ratio] 17.6 mg/mg Normal [facility] Comment on above: Performed By: #### L IPID, CMP, T7, FT3, TSH #### [facility] [address] [place] [address] Dr. Isi Britton TSHon 11-12-2022 TSH 1.802 uIU/mL Normal 0.358-3.74 0 [facility] Comment on above: Performed By: #### L IPID, CMP, T7, FT3, TSH #### [facility] [address] [place] [id number] [address] Isi Britton Covid-19 PCR (CVDTB)on 09-11 SARS-CoV-2 (COVID-19) RNA ERICK+probe Ql (Unsp spec) Not detected Normal NOT DETECTED [facility] Comment on above: Result Comment: This test is not yet approved or cleared by the [place] FDA. When there are no FDA-approved or cleared tests available, and other criteria are met, FDA can make tests available under an emergency access mechanism called an Emergency Use Authorization (EUA). The EUA for this test is supported by the [place] of Health and Human Service's (HHS's) declaration [...] consistent with SARS-CoV-2. Performed By: #### [facility] ####[facility] [id number] [address]Dr. Isi Britton ECHOCARDIO M/2D COMPLETEon 1 09-09-2021 ECHOCARDIO M/2D COMPLETE Patient: CECE HUBBARD Exam Date: 07/10/2022 : 1945 Gender:F Ordering : DR EDWIN BLUNT M.D. Admission #: [id number] Family : DR DEMARCO NEWELL . Order #: [id number] CLICK HERE TO VIEW EXAM ECHOCARDIOGRAM REPORT [...] M.D. on 07/10/2022 at 15:37 Normal [facility] Covid-19 PCR (CVDTB)on 03-12 SARS-CoV-2 (COVID-19) RNA ERICK+probe Ql (Unsp spec) Not detected Normal NOT DETECTED [facility] Comment on above: Result Comment: This test is not yet approved or cleared by the [place] FDA. When there are no FDA-approved or cleared tests available, and other criteria are met, FDA can make tests available under an emergency access mechanism called an Emergency Use Authorization (EUA). The EUA for this test is supported by the [place] of Health and Human Service's (HHS's) declaration [...] SARS-CoV-2. Performed By: #### C VDTB #### [facility] [address] [place] [address] Dr. Isi Britton C REACTIVE PROTEINon 021 CRP [Mass/Vol] 5.1 mg/L Normal 0.0-7.[address] [facility] Comment on above: Performed By: #### 6 1405 #### [id number] [place] [address] CERVICAL SPINE 2 OR 3 VWSon 03-12-2021 CERVICAL SPINE [address] [facility] Department of Radiology 37 [place] [id number] Patient Name: CECE HUBBARD : 1945 Sex: F Age: Race: White Pt. Location: [facility] Patient Status: D Ordered Date: 03/12/2021 4:00:00 PM Completed Date: 03/12/2021 04:25 PM Requesting Provider: REZA HARVEY Attending Provider: REZA HARVEY Report Copy To: Signs & Symptoms: M54.2 Cervicalgia I10 History: [place] Comments: Exam: CERVICAL SPINE 2 OR 3 VWS CERVICAL SPINE 2 OR 3 VWS 03/12/2021 [...] curvature. Electronically signed: Rosendo Salvador. Transcribed by: [email or web address], User Resident: Electronically Signed by: ROSENDO SALVADOR @ 03/13/2021 08:[address] [facility] LUMBAR SPINE 2 OR 3 [facility] LUMBAR SPINE 2 OR 3 [facility] Department of Radiology [address] [place] [id number] Patient Name: CECE HUBBARD : 1945 Sex: F Age: Race: White Pt. Location: [facility] Patient Status: D Ordered Date: 03/12/2021 4:00:00 PM Completed Date: 03/12/2021 04:25 PM Requesting Provider: REZA HARVEY Attending Provider: REZA HARVEY Report Copy To: Signs & Symptoms: M54.5 Low back pain I10 History: [place] Comments: Exam: LUMBAR SPINE 2 OR 3 [facility] LUMBAR SPINE 2 OR 3 [facility] 03/12/2021 4:25 PM CLINICAL INDICATIONS: M54.5 [...] levels. Electronically signed: Rosendo Salvador. Transcribed by: [email or web address], User Resident: Electronically Signed by: ROSENDO SALVADOR @ 03/13/2021 10:[address] [facility] S-I JOINTS MIN 4 [facility] 03-12 S-I JOINTS MIN 4 [facility] Department of Radiology [address] [place] [id number] Patient Name: CECE HUBBARD : 1945 Sex: F Age: Race: White Pt. Location: [facility] Patient Status: D Ordered Date: 03/12/2021 4:00:00 PM Completed Date: 03/12/2021 04:25 PM Requesting Provider: REZA HARVEY Attending Provider: REZA HARVEY Report Copy To: Signs & Symptoms: M54.5 Low back pain I10 History: [place] Comments: Exam: S-I JOINTS MIN 4 S S-I JOINTS MIN 4 VWS 03/12/2021 4:25 [...] report. Electronically signed: Brisa Jackson. Transcribed by: [email or web address], User Resident: HARRISON HUNTER Electronically Signed by: BRISA JACKSON @ 03/13/2021 10:46 AM I personally read this/these film(s) with this resident Normal [facility] SEDIMENTATION RATEon 021 SED RATE 37 mm/hr High 0-[address] [facility] Comment on above: Performed By: #### 5 [id number] #### [place] [address] [place] [address], [facility] Cardiovascular Lab Reporton 05-12-2020 Cardiovascular Lab Report [facility] Patient Name: Cece Hubbard [facility] MR #: [id number] Physician: Edwin Koch of [facility]el[facility] Blunt Medicine Service Date: 05/11/2020 Division of Birthdate: 1945 Cardiology Room #: Adult Cardiovascular Services [facility] [address] [place] [address] Cardiovascular Laboratory Report INDICATION: The patient is a 75-year-old woman, who recently was evaluated in Cardiology Clinic because of a class 3 heart failure symptoms. She was evaluated by initially an echocardiography, then a transesophageal echocardiogram that showed waqg-je-xowlfzho mitral regurgitation and mild aortic valve regurgitation. [...] signed informed consent. She was brought to quality lab technician in a fasting state. Modified Dom's test was favorable on the left. Access in the left radial artery was obtained using micropuncture technique. A 6-Qatari x 11 cm Hydrophilic sheath was advanced. [...] coronary artery. This was exchanged to a 6-Qatari AR2 guiding catheter followed by a 6-Qatari AL1 guiding catheter, which was able to [...] atmospheres and post dilated using NC Quantum Sharon 3.0 x 15 mm noncompliant balloon inflated [...] P/Edwin Blunt M.D. Date Trans: 05/12/2020 06:46 Tommy/cale [id number] cc: Demarco Newell M.D. [address], [facility] [phone] [facility] BNP (B-TYPE NATRIURETIC PEPT EEF)on 04-05-2020 Natriuretic peptide B (Bld) [Mass/Vol] 26 pg/mL Normal 0-[address] [facility] Comment on above: Order Comment: No: D o not add to previous draw Result Comment: Give n the appropriate clinical setting a BNP result of >100 pg/mL indicates congestive heart failure. Performed By: #### 8 5123 #### [facility] [address] [place] [address], [facility] CBC COMPLETE BLOOD COUNTon 0 8--2020 Erythrocyte distribution width (RBC) [Ratio] 13.1 % Normal 11.5-15.[address] [facility] Comment on above: Order Comment: No: D o not add to previous draw Performed By: #### 5 0608 #### [facility] [address] [place] [address], [facility] Hematocrit (Bld) [Volume fraction] 42.1 % Normal 36.0-45.[address] [facility] Comment on above: Order Comment: No: D o not add to previous draw Performed By: #### 5 0608 #### [facility] [address] [place] [address], [facility] Hemoglobin (Bld) [Mass/Vol] 14.3 g/dL Normal 12.0-15.[address] [facility] Comment on above: Order Comment: No: D o not add to previous draw Performed By: #### 5 0608 #### [facility] [address] [place] [address], [facility] MCH (RBC) [Entitic mass] 31.0 pg Normal 27.0-33.[address] [facility] Comment on above: Order Comment: No: D o not add to previous draw Performed By: #### 5 0608 #### [facility] [address] [place] [address], [facility] MCHC (RBC) [Mass/Vol] 34.0 g/dL Normal 32.0-35.[address] [facility] Comment on above: Order Comment: No: D o not add to previous draw Performed By: #### 5 0608 #### [facility] [address] [place] [address], [facility] MCV (RBC) [Entitic vol] 91.3 fL Normal 82.0-98.[address] [facility] Comment on above: Order Comment: No: D o not add to previous draw Performed By: #### 5 0608 #### [facility] [address] [place] [address], [facility] Nucleated RBC/100 WBC (Bld) [Ratio] 0 % Normal 0-[address] [facility] Comment on above: Order Comment: No: D o not add to previous draw Performed By: #### 5 0608 #### [facility] [address] [place] [address], [place] PLAT CNT 249 10*3/uL Normal 150-[address] [facility] Comment on above: Order Comment: No: D o not add to previous draw Performed By: #### 5 0608 #### [facility] [address] [place] [address], [place] RBC (Bld) [#/Vol] 4.61 10*6/uL Normal 3.80-5.[address] [facility] Comment on above: Order Comment: No: D o not add to previous draw Performed By: #### 5 0608 #### [facility] [address] [place] [address], [facility] WBC (Bld) [#/Vol] 6.32 10*3/uL Normal 4.00-10.[address] [facility] Comment on above: Order Comment: No: D o not add to previous draw Performed By: #### 5 0608 #### [facility] [address] [place] [id number], [place] Erythrocyte distribution width (RBC) [Ratio] 13.0 % Normal 11.5-15.[address] [facility] Comment on above: Order Comment: No: D o not add to previous draw Performed By: #### 5 0608 #### [facility] [address] [place] [address], [place] Hematocrit (Bld) [Volume fraction] 40.2 % Normal 36.0-45.[address] [facility] Comment on above: Order Comment: No: D o not add to previous draw Performed By: #### 5 0608 #### [facility] [address] [place] [address], [place] Hemoglobin (Bld) [Mass/Vol] 13.7 g/dL Normal 12.0-15.[address] [facility] Comment on above: Order Comment: No: D o not add to previous draw Performed By: #### 5 0608 #### [facility] [address] [place] [address], [facility] MCH (RBC) [Entitic mass] 31.4 pg Normal 27.0-33.[address] [facility] Comment on above: Order Comment: No: D o not add to previous draw Performed By: #### 5 0608 #### [facility] [address] [place] [id number], [facility] MCHC (RBC) [Mass/Vol] 34.1 g/dL Normal 32.0-35.[address] [facility] Comment on above: Order Comment: No: D o not add to previous draw Performed By: #### 5 0608 #### [facility] [address] [place] [address], [facility] MCV (RBC) [Entitic vol] 92.0 fL Normal 82.0-98.[address] [facility] Comment on above: Order Comment: No: D o not add to previous draw Performed By: #### 5 0608 #### [facility] [address] [facility] [place] [address], [facility] Nucleated RBC/100 WBC (Bld) [Ratio] 0 % Normal 0-[address] [facility] Comment on above: Order Comment: No: D o not add to previous draw Performed By: #### 5 0608 #### [facility] [address] [address], [place] PLAT CNT 209 10*3/uL Normal 150-[address] [facility] Comment on above: Order Comment: No: D o not add to previous draw Performed By: #### 5 0608 #### [facility] [address] [place] [id number], [facility] RBC (Bld) [#/Vol] 4.37 10*6/uL Normal 3.80-5.[address] [facility] Comment on above: Order Comment: No: D o not add to previous draw Performed By: #### 5 0608 #### [facility] [address] [facility]. [address] WBC (Bld) [#/Vol] 5.97 10*3/uL Normal 4.00-10.[address] [facility] Comment on above: Order Comment: No: D o not add to previous draw Performed By: #### 5 0608 #### [facility] [address] [facility]. [address] TROPONIN-Ion 04-05-2020 Troponin I.cardiac [Mass/Vol] 0.07 ng/mL High 0.00-0.[address] [facility] Comment on above: Order Comment: This order is a replacement of the rejected order with accession number [id number]. Result Comment: REFE RENCE RANGES: 0.00 - 0.04 ng/ml NORMAL 0.05 - 0.50 ng/ml INDETERMINATE > 0.50 ng/ml CONSISTENT WITH AN M.I. Performed By: #### 3 5200 #### [facility] [address] Cardiovascular Lab Reporton 04-04-2020 Cardiovascular Lab Report [facility] Patient Name: Cece Hubbard [facility] S MR #: [id number] Department of Physician: [facility] Jerri Blunt M.D. Division of Service Date: 04/04/2020 Cardiology Birthdate: 1945 Adult Cardiovascular Room #: CC Services [facility] [address] [place] [address] Cardiovascular Laboratory Report INDICATION: Cece Hubbard is a 75-year-old woman, who was recently evaluated in Cardiology Clinic after a recent admission to the [facility] with acute onset shortness of breath and finding on echocardiogram of possible severe mitral regurgitation. She continued to be symptomatic and was referred for further investigation of her recent onset symptoms by a transesophageal echocardiography that showed evidence of pqej-nc-byeofyso mitral regurgitation. She was then referred for [...] informed consent. She was brought to the quality lab technician in a fasting state. The right neck area was prepped and draped in the usual fashion. Using micropuncture technique and ultrasound guidance, the right internal jugular vein was accessed. A 6-Qatari x 11 cm sheath was placed. A 6-Qatari Mendez catheter was used for right catheterization with measurement of pressures and calculation of cardiac output using the estimated Elizabeth method. Mendez catheter was removed. Modified Dom's test was favorable on the right. Access in the right radial artery was obtained using micropuncture technique. A 6-Qatari x 11 cm Hydrophilic sheath was advanced. Verapamil was given through the sheath and heparin was administered intravenously. Bilateral selective coronary angiography was then performed using 5-Qatari JR5 and 5-Qatari multipurpose catheters for engagement of the right coronary artery and a 5-Qatari JL3.5 diagnostic catheter for engagement of the left coronary artery. Catheters were removed. Additional heparin was given as needed and therapeutic ACT confirmed during the rest of the procedure. A 6-Qatari XB3.0 guiding catheter was advanced and used [...] atmospheres and post dilated using NC Quantum Sharon 3.25 x 12 mm noncompliant balloon inflated [...] 2- (more content not included)... Normal [facility] *SARS-CoV-2 COVID-19on 03-31 SARS-CoV-2 (COVID-19) RNA ERICK+probe Ql (Unsp spec) Not detected Normal Not Detected [facility] Comment on above: Order Comment: The A ptima SARS-CoV-2 assay is a nucleic acid amplification test intended for the qualitative detection of RNA from SARS-CoV-2 isolated and purified from nasopharyngeal (MIGRANT LEADER),oropharyngeal (OP), nasal swab, sputum, and bronchoalveolar lavage (BAL) specimens from patients with signs and symptoms of infection who are suspected of COVID-19. Results are for the identification of SARS-CoV-2 RNA. The SARS-CoV-2 RNA is generally detectable during the acute phase of infection. The Aptima SARS-CoV-2 Assay on the [place] and [place] Fusion system is intended for use by laboratory personnel specifically instructed and trained in the operation of the [place] and [place] Fusion system. The Aptima SARS-CoV-2 assay is [...] information. Performed By: #### 3 1792 #### [facility] [address] CONSULTATIONon 03-02-2019 [place] [address] CONSULTATION PATIENT NAME: CCEE HUBBARD : 1945 MED REC NO: [id number] ROOM: [facility] ACCOUNT NO: [id number] ADMIT DATE: 02/24/2019 PROVIDER: Angelica Holguin MD [...] and S2 are normal. No murmurs appreciated. 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 Eye [...] the patient. ANGELICA HOLGUIN MD [id number] Doc#: [id number] CC: Normal [facility] Homocysteineon 03-02-2019 Homocysteine 14.5 umol/L Normal 0.0-15.0 [facility] Comment on above: Performed By: #### P T #### [facility] [address] [place] [address] TSH w/out Reflexon 9 TSH Qn 3.890 uIU/mL Critically high 0.440-3.86 [facility] Comment on above: Performed By: #### P T #### [facility] [address] [place] [address] Vitamin B12 and Folateon Cobalamin (Vitamin B12) [Mass/Vol] 537 pg/mL Normal 232-1245 [facility] Comment on above: Performed By: #### P T #### [facility] [address] [place] [address] Folate 11.6 ng/mL Normal 7.3-26.1 [facility] Comment on above: Result Comment: As o f 16, the methodology has changed. Results from this methodology should not be compared with results from previous methodology. Performed By: #### P T #### [facility] [address] [place] [address] Urinalysis, reflex to cultur erik 02-28-2019 Bilirubin Ql (U) Negative Normal Negative [facility] Comment on above: Performed By: #### B MP #### [facility] [address] [place] [address] Clarity (U) Clear Normal Clear [facility] Comment on above: Performed By: #### B MP #### [facility] [address] [place] [address] Color (U) Yellow Normal Straw/Sawyer [facility] Comment on above: Performed By: #### B MP #### [facility] [address] [place] [address] Glucose Ql (U) Negative Normal Negative [facility] Comment on above: Performed By: #### B MP #### [facility] [address] [place] [address] Hemoglobin Ql (U) Negative Normal Negative [facility] Comment on above: Performed By: #### B MP #### [facility] [address] [place] [address] Ketones Ql (U) Negative Normal Negative [facility] Comment on above: Performed By: #### B MP #### [facility] [address] [place] [address] Leukocyte esterase Test strip Ql (U) Negative Normal Negative [facility] Comment on above: Performed By: #### B MP #### [facility] [address] [place] [address] Nitrite Ql (U) Negative Normal Negative [facility] Comment on above: Performed By: #### B MP #### [facility] [address] [place] [address] pH (U) 7.0 [pH] Normal 5.0-9.0 [facility] Comment on above: Performed By: #### B MP #### [facility] [address] [place] [address] Protein Ql (U) Negative Normal Negative [facility] Comment on above: Performed By: #### B MP #### [facility] [address] [place] [address] Specific gravity (U) [Rel density] 1.007 Normal 1.005-1.03 [facility] Comment on above: Performed By: #### B MP #### [facility] [address] [place] [address] Urine Reflexed to Culture Not Indicated Normal [facility] Comment on above: Performed By: #### B MP #### [facility] [address] [place] [address] Urobilinogen Qn (U) 0.2 {Tyrel'U}/dL Normal < 2.0 [facility] Comment on above: Performed By: #### B MP #### [facility] [address] [place] [address] CBC With Platelet No Differe ntialon 02-25-2019 Erythrocyte distribution width (RBC) [Ratio] 13.5 % Normal 11.5-14.5 [facility] Comment on above: Performed By: #### B MP #### [facility] [address] [place] [address] Hematocrit (Bld) [Volume fraction] 33.3 % Low 37.0-47.0 [facility] Comment on above: Performed By: #### B MP #### [facility] [address] [place] [address] Hemoglobin (Bld) [Mass/Vol] 11.7 g/dL Low 12.0-16.0 [facility] Comment on above: Performed By: #### B MP #### [facility] [address] [place] [address] MCH (RBC) [Entitic mass] 33.0 pg Critically high 27.0-31.3 [facility] Comment on above: Performed By: #### B MP #### [facility] [address] [place] [address] MCHC (RBC) [Mass/Vol] 35.1 % Normal 33.0-37.0 [facility] Comment on above: Performed By: #### B MP #### [facility] [address] [place] [address] MCV (RBC) [Entitic vol] 94.1 fL Normal 82.0-100.0 [facility] Comment on above: Performed By: #### B MP #### [facility] [address] [place] [address] Platelets (Bld) [#/Vol] 180 10*3/uL Normal 130-400 [facility] Comment on above: Performed By: #### B MP #### [facility] [address] [place] [address] RBC (Bld) [#/Vol] 3.54 10*6/uL Low 4.20-5.40 [facility] Comment on above: Performed By: #### B MP #### [facility] [address] [place] [address] WBC (Bld) [#/Vol] 12.1 10*3/uL Critically high 4.8-10.8 [facility] Comment on above: Performed By: #### B MP #### [facility] [address] [place] [address] Basic Metabolic Panel Reflex Mgon 02-24-2019 Anion gap [Moles/Vol] 13 mmol/L Normal 9-15 [facility] Comment on above: Performed By: #### B MP #### [facility] [address] [place] [address] Calcium [Mass/Vol] 8.8 mg/dL Normal 8.5-9.9 [facility] Comment on above: Performed By: #### B MP #### [facility] [address] [place] [address] Chloride [Moles/Vol] 100 mmol/L Normal 95-107 [facility] Comment on above: Performed By: #### B MP #### [facility] [address] [place] [address] CO2 [Moles/Vol] 24 mmol/L Normal 20-31 [facility] Comment on above: Performed By: #### B MP #### [facility] [address] [place] [address] Creatinine [Mass/Vol] 0.96 mg/dL Critically high 0.50-0.90 [facility] Comment on above: Performed By: #### B MP #### [facility] [address] [place] [address] GFR/1.73 sq M predicted among blacks MDRD (S/P/Bld) [Vol rate/Area] mL/min/{1.73_m2} Normal >60 [facility] Comment on above: Result Comment: >60 mL/min/1.73m2 EGFR, calc. for ages 18 and older using the MDRD formula (not corrected for weight), is valid for stable renal function. Performed By: #### B MP #### [facility] [address] [place] [address] GFR/1.73 sq M.predicted MDRD (S/P/Bld) [Vol rate/Area] 57.0 mL/min/{1.73_m2} Low >60 [facility] Comment on above: Result Comment: >60 mL/min/1.73m2 EGFR, calc. for ages 18 and older using the MDRD formula (not corrected for weight), is valid for stable renal function. Performed By: #### B MP #### [facility] [address] [place] [address] Glucose [Mass/Vol] 146 mg/dL Critically high 70-99 [facility] Comment on above: Performed By: #### B MP #### [facility] [address] [place] [address] Potassium reflex Mg 5.4 mEq/L Critically high 3.4-4.9 [facility] Comment on above: Performed By: #### B MP #### [facility] [address] [place] [address] Sodium [Moles/Vol] 137 mmol/L Normal 135-144 [facility] Comment on above: Performed By: #### B MP #### [facility] [address] [place] [address] Urea nitrogen [Mass/Vol] 18 mg/dL Normal 8-23 [facility] Comment on above: Performed By: #### B MP #### [facility] [address] [place] [address] CBC With Platelet and Differ entialon 02-24-2019 Basophils (Bld) [#/Vol] 0.0 10*3/uL Normal 0.0-0.2 [facility] Comment on above: Performed By: #### C BCWD #### [facility] [address] [place] [address] Basophils/100 WBC (Bld) 0.1 % Normal [facility] Comment on above: Performed By: #### C BCWD #### [facility] [address] [place] [address] Eosinophils (Bld) [#/Vol] 0.0 10*3/uL Normal 0.0-0.7 [facility] Comment on above: Performed By: #### C BCWD #### [facility] [address] [place] [address] Eosinophils/100 WBC (Bld) 0.0 % Normal [facility] Comment on above: Performed By: #### C BCWD #### [facility] [address] [place] [address] Erythrocyte distribution width (RBC) [Ratio] 13.4 % Normal 11.5-14.5 [facility] Comment on above: Performed By: #### C BCWD #### [facility] [address] [place] [address] Hematocrit (Bld) [Volume fraction] 34.6 % Low 37.0-47.0 [facility] Comment on above: Performed By: #### C BCWD #### [facility] [address] [place] [address] Hemoglobin (Bld) [Mass/Vol] 12.0 g/dL Normal 12.0-16.0 [facility] Comment on above: Performed By: #### C BCWD #### [facility] [address] [place] [address] Lymphocytes (Bld) [#/Vol] 0.9 10*3/uL Low 1.0-4.8 [facility] Comment on above: Performed By: #### C BCWD #### [facility] [address] [place] [address] Lymphocytes/100 WBC (Bld) 6.5 % Normal [facility] Comment on above: Performed By: #### C BCWD #### [facility] [address] [place] [address] MCH (RBC) [Entitic mass] 32.3 pg Critically high 27.0-31.3 [facility] Comment on above: Performed By: #### C BCWD #### [facility] [address] [place] [address] MCHC (RBC) [Mass/Vol] 34.7 % Normal 33.0-37.0 [facility] Comment on above: Performed By: #### C BCWD #### [facility] [address] [place] [address] MCV (RBC) [Entitic vol] 93.2 fL Normal 82.0-100.0 [facility] Comment on above: Performed By: #### C BCWD #### [facility] [address] [place] [address] Monocytes (Bld) [#/Vol] 1.4 10*3/uL Critically high 0.2-0.8 [facility] Comment on above: Performed By: #### C BCWD #### [facility] [address] [place] [address] Monocytes/100 WBC (Bld) 10.2 % Normal [facility] Comment on above: Performed By: #### C BCWD #### [facility] [address] [place] [address] Neutrophils (Bld) [#/Vol] 11.3 10*3/uL Critically high 1.4-6.5 [facility] Comment on above: Performed By: #### C BCWD #### [facility] [address] [place] [address] Neutrophils/100 WBC (Bld) 83.2 % Normal [facility] Comment on above: Performed By: #### C BCWD #### [facility] [address] [place] [address] Platelets (Bld) [#/Vol] 208 10*3/uL Normal 130-400 [facility] Comment on above: Performed By: #### C BCWD #### [facility] [address] [place] [address] RBC (Bld) [#/Vol] 3.71 10*6/uL Low 4.20-5.40 [facility] Comment on above: Performed By: #### C BCWD #### [facility] [address] [place] [address] WBC (Bld) [#/Vol] 13.7 10*3/uL Critically high 4.8-10.8 [facility] Comment on above: Performed By: #### C BCWD #### [facility] [address] [place] [address] Culture, Urineon 02-24-2019 Culture, Urine OR DERED BY: CHRISTIE REED SOURCE: Urine Clean Catch COLLECTED: 02/24/19 17:31 ANTIBIOTICS AT ELISEO.: RECEIVED : 02/24/19 17:31 Culture, Urine FINAL 02/26/19 08:22 No growth 24 hours Normal [facility] Comment on above: Performed By: #### B MP #### [facility] [address] [place] [address] POCT Glucoseon 02-24-2019 Glucose [Mass/Vol] 133 mg/dL Critically high 60-115 [facility] Comment on above: Performed By: #### B MP #### [facility] [address] [place] [address] POC Performed on ACCU-CHEK Normal [facility] Comment on above: Performed By: #### B MP #### [facility] [address] [place] [address] Urinalysis, reflex to cultur erik 02-24-2019 Bilirubin Ql (U) Negative Normal Negative [facility] Comment on above: Performed By: #### B MP #### [facility] [address] [place] [address] Clarity (U) Clear Normal Clear [facility] Comment on above: Performed By: #### B MP #### [facility] [address] [place] [address] Color (U) Yellow Normal Straw/Sawyer [facility] Comment on above: Performed By: #### B MP #### [facility] [address] [place] [address] Glucose Ql (U) Negative Normal Negative [facility] Comment on above: Performed By: #### B MP #### [facility] [address] [place] [address] Hemoglobin Ql (U) SMALL Abnormal Negative [facility] Comment on above: Performed By: #### B MP #### [facility] [address] [place] [address] Ketones Ql (U) Negative Normal Negative [facility] Comment on above: Performed By: #### B MP #### [facility] [address] [place] [address] Leukocyte esterase Test strip Ql (U) TRACE Abnormal Negative [facility] Comment on above: Performed By: #### B MP #### [facility] [address] [place] [address] Nitrite Ql (U) Negative Normal Negative [facility] Comment on above: Performed By: #### B MP #### [facility] [address] [place] [address] pH (U) 6.0 [pH] Normal 5.0-9.0 [facility] Comment on above: Performed By: #### B MP #### [facility] [address] [place] [address] Protein Ql (U) Negative Normal Negative [facility] Comment on above: Performed By: #### B MP #### [facility] [address] [place] [address] Specific gravity (U) [Rel density] 1.010 Normal 1.005-1.03 [facility] Comment on above: Performed By: #### B MP #### [facility] [address] [place] [address] Urine Reflexed to Culture YES Normal [facility] Comment on above: Performed By: #### B MP #### [facility] [address] [place] [address] Urobilinogen Qn (U) 0.2 {Tyrel'U}/dL Normal < 2.0 [facility] Comment on above: Performed By: #### B MP #### [facility] [address] [place] [address] Urine Microscopicon 02-25-20 19 Bacteria LM.HPF (Urine sed) [#/Area] Negative Normal [facility] Comment on above: Performed By: #### B MP #### [facility] [address] [place] [address] RBC (U) [#/Vol] 0-2 Normal 0-5 [facility] Comment on above: Performed By: #### B MP #### [facility] [address] [place] [address] Urine Epithelial Cells Auto 3-5 Normal 0-5 [facility] Comment on above: Performed By: #### B MP #### [facility] [address] [place] [address] Urine Hyaline Casts Auto 0-1 Normal 0-5 [facility] Comment on above: Performed By: #### B MP #### [facility] [address] [place] [address] Urine WBC Auto 6-10 Abnormal 0-5 [facility] Comment on above: Performed By: #### B MP #### [facility] [address] [place] [address] XR LUMBAR SPINE (2-3 VIEWS)o n 02-24-2019 [...] Ramón Bonds MD 02/24/19 Final result Normal [facility] Basic Metabolic Panel Reflex Mgon 02-23-2019 Anion gap [Moles/Vol] 14 mmol/L Normal 9-15 [facility] Comment on above: Performed By: #### B MPX #### [facility] [address] [place] [address] Calcium [Mass/Vol] 9.1 mg/dL Normal 8.5-9.9 [facility] Comment on above: Performed By: #### B MPX #### [facility] [address] [place] [address] Chloride [Moles/Vol] 106 mmol/L Normal 95-107 [facility] Comment on above: Performed By: #### B MPX #### [facility] [address] [place] [address] CO2 [Moles/Vol] 20 mmol/L Normal 20-31 [facility] Comment on above: Performed By: #### B MPX #### [facility] [address] [place] [address] Creatinine [Mass/Vol] 0.96 mg/dL Critically high 0.50-0.90 [facility] Comment on above: Performed By: #### B MPX #### [facility] [address] [place] [address] GFR/1.73 sq M predicted among blacks MDRD (S/P/Bld) [Vol rate/Area] mL/min/{1.73_m2} Normal >60 [facility] Comment on above: Result Comment: >60 mL/min/1.73m2 EGFR, calc. for ages 18 and older using the MDRD formula (not corrected for weight), is valid for stable renal function. Performed By: #### B MPX #### [facility] [address] [place] [address] GFR/1.73 sq M.predicted MDRD (S/P/Bld) [Vol rate/Area] 57.0 mL/min/{1.73_m2} Low >60 [facility] Comment on above: Result Comment: >60 mL/min/1.73m2 EGFR, calc. for ages 18 and older using the MDRD formula (not corrected for weight), is valid for stable renal function. Performed By: #### B MPX #### [facility] [address] [place] [address] Glucose [Mass/Vol] 139 mg/dL Critically high 70-99 [facility] Comment on above: Performed By: #### B MPX #### [facility] [address] [place] [address] Potassium reflex Mg 4.6 mEq/L Normal 3.4-4.9 [facility] Comment on above: Performed By: #### B MPX #### [facility] [address] [place] [address] Sodium [Moles/Vol] 140 mmol/L Normal 135-144 [facility] Comment on above: Performed By: #### B MPX #### [facility] [address] [place] [address] Urea nitrogen [Mass/Vol] 20 mg/dL Normal 8-23 [facility] Comment on above: Performed By: #### B MPX #### [facility] [address] [place] [address] CBC With Platelet No Differe ntialon 02-23-2019 Erythrocyte distribution width (RBC) [Ratio] 13.4 % Normal 11.5-14.5 [facility] Comment on above: Performed By: #### C BCND #### [facility] [address] [place] [address] Hematocrit (Bld) [Volume fraction] 38.8 % Normal 37.0-47.0 [facility] Comment on above: Performed By: #### C BCND #### [facility] [address] [place] [address] Hemoglobin (Bld) [Mass/Vol] 13.6 g/dL Normal 12.0-16.0 [facility] Comment on above: Performed By: #### C BCND #### [facility] [address] [place] [address] MCH (RBC) [Entitic mass] 32.2 pg Critically high 27.0-31.3 [facility] Comment on above: Performed By: #### C BCND #### [facility] [address] [place] [address] MCHC (RBC) [Mass/Vol] 35.1 % Normal 33.0-37.0 [facility] Comment on above: Performed By: #### C BCND #### [facility] [address] [place] [address] MCV (RBC) [Entitic vol] 91.6 fL Normal 82.0-100.0 [facility] Comment on above: Performed By: #### C BCND #### [facility] [address] [place] [address] Platelets (Bld) [#/Vol] 212 10*3/uL Normal 130-400 [facility] Comment on above: Performed By: #### C BCND #### [facility] [address] [place] [address] RBC (Bld) [#/Vol] 4.24 10*6/uL Normal 4.20-5.40 [facility] Comment on above: Performed By: #### C BCND #### [facility] [address] [place] [address] WBC (Bld) [#/Vol] 8.3 10*3/uL Normal 4.8-10.8 [facility] Comment on above: Performed By: #### C BCND #### [address] [id number] FLUORO FOR SURGICAL PROCEDUR ESon 02-23-2019 FLUORO [...] Nona Yates MD 02/23/19 Final result Normal [facility] Surgical Specimenon 02-24-20 Surgical Specimen [facility] [address] [place], [place] [id number] FINAL SURGICAL PATHOLOGY REPORT Patient Name: CECE HUBBARD Accession No: [id number] Age Sex: 1945 Location: DIS [id number] Account No: [id number] Collected: 02/23/2019 Med Rec No: [id number] Received: 02/24/2019 Attend Phys: JOEL RAMIREZ Completed: [...] 3.5 x 3.0 x 0.5 cm. Sections security representative are submitted in three cassettes labeled A1 through A3 after a brief decalcification. ALIFA/SCDAN CPT: 78782 X1 89577 X1 CHIDI LUNA M.D. 02/26/2019 Electronically signed out by Page 1 of 1 [facility] Comment on above: Performed By: #### B MP #### [facility] [address] [place] [address] Basic Metabolic Panelon 02-08 Anion gap [Moles/Vol] 13 mmol/L Normal 9-15 [facility] Comment on above: Performed By: #### B MP #### [facility] [address] [place] [address] Calcium [Mass/Vol] 9.7 mg/dL Normal 8.5-9.9 [facility] Comment on above: Performed By: #### B MP #### [facility] [address] [place] [address] Chloride [Moles/Vol] 105 mmol/L Normal 95-107 [facility] Comment on above: Performed By: #### B MP #### [facility] [address] [place] [address] CO2 [Moles/Vol] 24 mmol/L Normal 20-31 [facility] Comment on above: Performed By: #### B MP #### [facility] [address] [place] [address] Creatinine [Mass/Vol] 1.00 mg/dL Critically high 0.50-0.90 [facility] Comment on above: Performed By: #### B MP #### [facility] [address] [place] [address] GFR/1.73 sq M predicted among blacks MDRD (S/P/Bld) [Vol rate/Area] mL/min/{1.73_m2} Normal >60 [facility] Comment on above: Result Comment: >60 mL/min/1.73m2 EGFR, calc. for ages 18 and older using the MDRD formula (not corrected for weight), is valid for stable renal function. Performed By: #### B MP #### [facility] [address] [place] [address] GFR/1.73 sq M.predicted MDRD (S/P/Bld) [Vol rate/Area] 54.3 mL/min/{1.73_m2} Low >60 [facility] Comment on above: Result Comment: >60 mL/min/1.73m2 EGFR, calc. for ages 18 and older using the MDRD formula (not corrected for weight), is valid for stable renal function. Performed By: #### B MP #### [facility] [address] [place] [address] Glucose [Mass/Vol] 93 mg/dL Normal 70-99 [facility] Comment on above: Performed By: #### B MP #### [facility] [address] [place] [address] Potassium [Moles/Vol] 4.1 mmol/L Normal 3.4-4.9 [facility] Comment on above: Performed By: #### B MP #### [facility] [address] [place] [address] Sodium [Moles/Vol] 142 mmol/L Normal 135-144 [facility] Comment on above: Performed By: #### B MP #### [facility] [address] [place] [address] Urea nitrogen [Mass/Vol] 20 mg/dL Normal 8-23 [facility] Comment on above: Performed By: #### B MP #### [facility] [address] [place] [address] CBC With Platelet No Differe ntialon 02-22-2019 Erythrocyte distribution width (RBC) [Ratio] 13.2 % Normal 11.5-14.5 [facility] Comment on above: Performed By: #### C BCND #### [facility] [address] [place] [address] Hematocrit (Bld) [Volume fraction] 39.9 % Normal 37.0-47.0 [facility] Comment on above: Performed By: #### C BCND #### [facility] [address] [place] [address] Hemoglobin (Bld) [Mass/Vol] 14.1 g/dL Normal 12.0-16.0 [facility] Comment on above: Performed By: #### C BCND #### [facility] [address] [place] [address] MCH (RBC) [Entitic mass] 32.5 pg Critically high 27.0-31.3 [facility] Comment on above: Performed By: #### C BCND #### [facility] [address] [place] [address] MCHC (RBC) [Mass/Vol] 35.3 % Normal 33.0-37.0 [facility] Comment on above: Performed By: #### C BCND #### [facility] [address] [place] [address] MCV (RBC) [Entitic vol] 92.2 fL Normal 82.0-100.0 [facility] Comment on above: Performed By: #### C BCND #### [facility] [address] [place] [address] Platelets (Bld) [#/Vol] 206 10*3/uL Normal 130-400 [facility] Comment on above: Performed By: #### C BCND #### [facility] [address] [place] [address] RBC (Bld) [#/Vol] 4.33 10*6/uL Normal 4.20-5.40 [facility] Comment on above: Performed By: #### C BCND #### [facility] [address] [place] [address] WBC (Bld) [#/Vol] 5.9 10*3/uL Normal 4.8-10.8 [facility] Comment on above: Performed By: #### C BCND #### [facility] [address] [place] [address] Partial Thromboplastin Timeo n 02-22-2019 aPTT Coag (Bld) [Time] 36.9 s Critically high 24.4-36. 8 [facility] Comment on above: Result Comment: Effe ctive 02/18/2019: Please note methodology and/or reference ranges have changed. Performed By: #### P TT #### [facility] [address] [place] [address] Prothrombin Timeon 9 INR Coag (PPP) [Relative time] 0.9 {INR} Normal [facility] Comment on above: Result Comment: Warf esther Therapy INR Therapeutic: 2.0-3.0 With Mechanical Valve: >2.5 Low-intensity Therapeutic Range: 1.5-2.0 Mod-intensity Therapeutic Range: 2.0-3.0 High-intensity Therapeutic Range: 2.5-3.5 HIgh-intensity Therapeutic Range: 3.0-4.0 Common Critical/Alarm Value: 5.0 Common Upper Limit Reported: 10.0 Effective 02/18/2019: Please note methodology and/or reference ranges have changed. Performed By: #### P T #### [facility] [address] [place] [address] PT Coag (PPP) [Time] 12.6 s Normal 12.3-14.9 [facility] Comment on above: Result Comment: Effe ctive 02/18/19 Please note methodology and/or reference ranges have changed. Performed By: #### P T #### [facility] [address] [place] [address] Type and Screen Capture 3 sc rn cellon 02-22-2019 Type and Screen Capture 3 scrn cell PATIENT: STEVIE Wilson LOC: [facility] BILL# : [id number] : 1945 SEX: F ORDERED BY: RISSA Hale ORDERED : 02/22/2019 07:32 COLLECTED: 02/22/2019 09:40 ORDER : [id number] RECEIVED : 02/22/2019 09:40 Confirmation type needs to be drawn. TEST NAME RESULT UNITS RANGES ABN FL ST ABORH Capture O NEG F Antibody 3 Cell Scrn Captu NEG F Normal [facility] Comment on above: Performed By: #### T S3C #### [facility] [address] [place] [place] [id number] XR SPINE ENTIRE (2-3 VIEWS)o n 02-22-2019 [...] Hope Rapp MD 02/23/19 Final result Normal [facility] No Panel Information [facility] Vital Signs Date Time Vital Sign Value Performing Clinician Facility 04-28-2025 10:30-0400 Diastolic blood pressure 72 mm[Hg] Demarco Newell MD Work Phone: [facility] 04-28-2025 10:30-0400 Heart rate 52 /min Demarco Newell MD Work Phone: [facility] 04-28-2025 10:30-0400 Respiratory rate 18 /min Demarco Newell MD Work Phone: [facility] 04-28-2025 10:30-0400 SaO2% (BldA) [Mass fraction] 97 % Demarco Newell MD Work Phone: [facility] 04-28-2025 10:30-0400 Systolic blood pressure 150 mm[Hg] Demarco Newell MD Work Phone: [facility] 04-28-2025 09:58-0400 Body height 160.02 cm Demarco Newell MD Work Phone: [facility] 04-28-2025 09:58-0400 Body temperature 97.6 [degF] Demarco Newell MD Work Phone: [facility] 04-28-2025 09:58-0400 Body weight 79.6 kg Demarco Newell MD Work Phone: [facility] 04-17-2025 12:17-0400 Heart rate 50 /min Demarco Newell MD Work Phone: [facility] 04-17-2025 12:17-0400 Respiratory rate 16 /min Demarco Newell MD Work Phone: [facility] 04-17-2025 12:17-0400 SaO2% (BldA) [Mass fraction] 96 % Demarco Newell MD Work Phone: [facility] 04-17-2025 12:00-0400 Diastolic blood pressure 66 mm[Hg] Demarco Newell MD Work Phone: [facility] 04-17-2025 12:00-0400 Systolic blood pressure 133 mm[Hg] Demarco Newell MD Work Phone: [facility] 04-17-2025 11:37-0400 Body temperature 97.4 [degF] Demarco Newell MD Work Phone: [facility] 04-17-2025 10:15-0400 Body height 160.02 cm Demarco Newell MD Work Phone: [facility] 04-17-2025 10:15-0400 Body weight 80.5 kg Demarco Newell MD Work Phone: [facility] 04-08-2025 10:54-0400 Body height [address] 04-08-2025 10:54-0400 Body mass index (BMI) [Ratio] 31 kg/m2 [address] 04-08-2025 10:54-0400 Body weight 79.[address] 04-08-2025 10:54-0400 Diastolic blood pressure 64 mm[Hg] [address] 04-08-2025 10:54-0400 Systolic blood pressure 120 mm[Hg] [address] 02-24-2025 10:30-0400 Body height 160 cm Víctor Wills MD Work Phone: [facility] 02-24-2025 10:30-0400 Body mass index (BMI) [Ratio] 31.11 kg/m2 Víctor Wills MD Work Phone: [facility] 02-24-2025 10:30-0400 Body weight 79.65 kg Víctor Wills MD Work Phone: [facility] 02-24-2025 10:30-0400 Diastolic blood pressure 68 mm[Hg] Víctor Wills MD Work Phone: [facility] 02-24-2025 10:30-0400 Heart rate 52 /min Víctor Wills MD Work Phone: [facility] 02-24-2025 10:30-0400 Systolic blood pressure 114 mm[Hg] Víctor Wills MD Work Phone: [facility] 10-04-2024 15:21-0500 Body height 160 cm Víctor Wills MD Work Phone: [facility] 10-04-2024 15:21-0500 Body mass index (BMI) [Ratio] 30.68 kg/m2 Víctor Wills MD Work Phone: [facility] 10-04-2024 15:21-0500 Body weight 78.56 kg Víctor Wills MD Work Phone: [facility] 10-04-2024 15:21-0500 Diastolic blood pressure 60 mm[Hg] Víctor Wills MD Work Phone: [facility] 10-04-2024 15:21-0500 Heart rate 56 /min Víctor Wills MD Work Phone: [facility] 10-04-2024 15:21-0500 Systolic blood pressure 106 mm[Hg] Víctor Wills MD Work Phone: [facility] 08-29-2024 11:11-0500 Diastolic blood pressure 78 mm[Hg] Demarco Newell MD Work Phone: [facility] 08-29-2024 11:11-0500 Heart rate 66 /min Demarco Newell MD Work Phone: [facility] 08-29-2024 11:11-0500 Respiratory rate 16 /min Deamrco Newell MD Work Phone: [facility] 08-29-2024 11:11-0500 SaO2% (BldA) [Mass fraction] 96 % Demarco Newell MD Work Phone: [facility] 08-29-2024 11:11-0500 Systolic blood pressure 128 mm[Hg] Demarco Newell MD Work Phone: [facility] 08-29-2024 07:41-0500 Body temperature 98 [degF] Demarco Newell MD Work Phone: [facility] 08-29-2024 06:00-0500 Body weight 76.6 kg Demarco Newell MD Work Phone: [facility] 08-28-2024 20:00-0500 Body height 160.02 cm Demarco Newell MD Work Phone: [facility] 08-28-2024 18:23-0500 Diastolic blood pressure 68 mm[Hg] Demarco Newell MD Work Phone: [facility] 08-28-2024 18:23-0500 Heart rate 61 /min Demarco Newell MD Work Phone: [facility] 08-28-2024 18:23-0500 Respiratory rate 18 /min Demarco Newell MD Work Phone: [facility] 08-28-2024 18:23-0500 Systolic blood pressure 156 mm[Hg] Demarco Newell MD Work Phone: [facility] 08-28-2024 14:42-0500 SaO2% (BldA) [Mass fraction] 98 % Demarco Newell MD Work Phone: [facility] 08-28-2024 11:49-0500 Body height 163.83 cm Demarco Newell MD Work Phone: [facility] 08-28-2024 11:49-0500 Body temperature 97.9 [degF] Demarco Newell MD Work Phone: [facility] 08-28-2024 11:49-0500 Body weight 79 kg Demarco Newell MD Work Phone: [facility] 07-16-2024 14:47-0500 Body height 160 cm Víctor Wills MD Work Phone: [facility] 07-16-2024 14:47-0500 Body mass index (BMI) [Ratio] 31 kg/m2 Víctor Wills MD Work Phone: [facility] 07-16-2024 14:47-0500 Body weight 79.38 kg Víctor Wills MD Work Phone: [facility] 07-16-2024 14:47-0500 Diastolic blood pressure 70 mm[Hg] Víctor Wills MD Work Phone: [facility] 07-16-2024 14:47-0500 Heart rate 66 /min Víctor Wills MD Work Phone: [facility] 07-16-2024 14:47-0500 Systolic blood pressure 132 mm[Hg] Víctor Wills MD Work Phone: [facility] 06-09-2024 15:23-0400 Body mass index (BMI) [Ratio] 30.65 kg/m2 Disha Cheung MD Work Phone: [facility] 06-09-2024 15:23-0400 Body weight 78.47 kg Disha Cheung MD Work Phone: [facility] 04-21-2024 13:58-0400 Body mass index (BMI) [Ratio] 31.53 kg/m2 Stacy Henderson MD Work Phone: [facility] 04-21-2024 13:58-0400 Body weight 80.74 kg Stacy Henderson MD Work Phone: [facility] 04-21-2024 13:58-0400 Diastolic blood pressure 80 mm[Hg] Stacy Henderson MD Work Phone: [facility] 04-21-2024 13:58-0400 Systolic blood pressure 130 mm[Hg] Stacy Henderson MD Work Phone: [facility] 04-07-2024 14:13-0400 Body height 160 cm Disha Cheung MD Work Phone: [facility] 04-07-2024 14:13-0400 Body mass index (BMI) [Ratio] 31.18 kg/m2 Disha Cheung MD Work Phone: [facility] 04-07-2024 14:13-0400 Body weight 79.83 kg Disha Cheung MD Work Phone: [facility] 01-20-2024 12:04-0400 Body height 161.29 cm MD Demarco Newell Work Phone: [facility] 01-20-2024 12:04-0400 Body temperature 97.6 [degF] MD Demarco Newell Work Phone: [facility] 01-20-2024 12:04-0400 Body weight 79.15 kg MD Demarco Newell Work Phone: [facility] 01-20-2024 12:04-0400 Diastolic blood pressure 76 mm[Hg] MD Demarco Newell Work Phone: [facility] 01-20-2024 12:04-0400 Heart rate 66 /min MD Demarco Newell Work Phone: [facility] 01-20-2024 12:04-0400 Respiratory rate 16 /min MD Demarco Newell Work Phone: [facility] 01-20-2024 12:04-0400 SaO2% (BldA) [Mass fraction] 97 % MD Demarco Newell Work Phone: [facility] 01-20-2024 12:04-0400 Systolic blood pressure 164 mm[Hg] MD Demarco Newell Work Phone: [facility] 01-12-2024 15:35-0400 Diastolic blood pressure 72 mm[Hg] Víctor Wills MD Work Phone: [facility] 01-12-2024 15:35-0400 Systolic blood pressure 118 mm[Hg] Víctor Wills MD Work Phone: [facility] 01-12-2024 15:34-0400 Body height 161.3 cm Víctor Wills MD Work Phone: [facility] 01-12-2024 15:34-0400 Body mass index (BMI) [Ratio] 30.34 kg/m2 Víctor Wills MD Work Phone: [facility] 01-12-2024 15:34-0400 Body weight 78.93 kg Víctor Wills MD Work Phone: [facility] 01-12-2024 15:34-0400 Heart rate 65 /min Víctor Wills MD Work Phone: [facility] 12-23-2023 10:13-0400 Body mass index (BMI) [Ratio] 30.21 kg/m2 Vasyl Covarrubias MD Work Phone: [facility] 12-23-2023 10:13-0400 Body weight 79.83 kg Vasyl Covarrubias MD Work Phone: [facility] 12-23-2023 10:13-0400 Diastolic blood pressure 74 mm[Hg] Vasyl Covarrubias MD Work Phone: [facility] 12-23-2023 10:13-0400 Heart rate 67 /min Vasyl Covarrubias MD Work Phone: [facility] 12-23-2023 10:13-0400 Respiratory rate 16 /min Vasyl Covarrubias MD Work Phone: [facility] 12-23-2023 10:13-0400 SaO2% (BldA) [Mass fraction] 96 % Vasyl Covarrubias MD Work Phone: [facility] 12-23-2023 10:13-0400 Systolic blood pressure 126 mm[Hg] Vasyl Covarrubias MD Work Phone: [facility] 11-09-2023 23:00-0400 Blood Pressure Location Jalen Flores [facility] 11-09-2023 23:00-0400 Heart rate 101 /min Jalen Flores [facility] 11-09-2023 23:00-0400 Mean blood pressure 89 mm[Hg] Jalen Flores [facility] 11-09-2023 23:00-0400 Respiratory rate 12 /min Jalen Mark [facility] 11-09-2023 23:00-0400 Systolic blood pressure 128 mm[Hg] Jalen Mark [facility] 11-09-2023 22:00-0400 SaO2% (BldA) [Mass fraction] 95 % Jalen Mark [facility] 11-09-2023 21:54-0400 Diastolic blood pressure 69 mm[Hg] Jalen Mark [facility] 11-09-2023 21:54-0400 Heart rate 99 /min Jalen Mark [facility] 11-09-2023 21:54-0400 Mean blood pressure 95 mm[Hg] Jalen Mark [facility] 11-09-2023 21:54-0400 Respiratory rate 20 /min Jalen Mark [facility] 11-09-2023 21:54-0400 SaO2% (BldA) [Mass fraction] 93 % Jalen Mark [facility] 11-09-2023 21:54-0400 Systolic blood pressure 147 mm[Hg] Jalen Mark [facility] 11-09-2023 20:51-0400 Body temperature 99.5 [degF] Jalen Mark [facility] 11-09-2023 20:51-0400 Diastolic blood pressure 65 mm[Hg] Jalen Mark [facility] 11-09-2023 20:51-0400 Heart rate 92 /min Jalen Mark [facility] 11-09-2023 20:51-0400 Respiratory rate 18 /min Jalen Mark [facility] 11-09-2023 20:51-0400 Systolic blood pressure 155 mm[Hg] Jalen Mark [facility] Encounters Encounter Date Encounter Type Care Provider Facility Start: 04-28-2025 End: 04-28-2025 Emergency department patient visit Demarco Newell MD Work Phone: -Emergency Room Work Phone: Start: 04-17-2025 End: 04-17-2025 Emergency department patient visit Demarco Newell MD Work Phone: -Emergency Room Work Phone: Start: 04-08-2025 End: 04-08-2025 ambulatory [facility] Start: 04-08-2025 End: 04-08-2025 Subsequent hospital visit by physician Lauren Holder Echo/Vasc [facility] Comment on above: Aortic valve insuffi ciency, etiology of cardiac valve disease unspecified; Mitral valve insufficiency, unspecified etiology Start: 02-24-2025 End: 02-24-2025 Office outpatient visit 25 minutes Víctor Wills MD Work Phone: [facility] Comment on above: Coronary artery dise ase, unspecified vessel or lesion type, unspecified whether angina present, unspecified whether tribe or transplanted heart (Primary Dx); Paroxysmal atrial fibrillation (Multi); High risk medication use; Hyperlipidemia, unspecified hyperlipidemia type; Diastolic dysfunction; Aortic valve insufficiency, etiology of cardiac valve disease unspecified; Mitral valve insufficiency, unspecified etiology; Mixed hyperlipidemia; History of PTCA; BMI 31.0-31.9,adult; Former smoker; Obesity, Class I, BMI 30-34.9 Start: 02-24-2025 End: 02-24-2025 ambulatory [facility] Start: 10-04-2024 End: 10-04-2024 Office outpatient visit 25 minutes Víctor Wills MD Work Phone: [facility] Comment on above: Coronary artery dise ase, unspecified vessel or lesion type, unspecified whether angina present, unspecified whether tribe or transplanted heart (Primary Dx); History of PTCA; Paroxysmal atrial fibrillation (Multi); Mixed hyperlipidemia; Stage 3a chronic kidney disease (Multi); Diastolic dysfunction; High risk medication use; Pleural effusion; BMI 30.0-30.9,adult; Former smoker Start: 10-04-2024 End: 10-04-2024 ambulatory [facility] Start: 09-15-2024 End: 09-15-2024 Subsequent hospital visit by physician Lauren Faust [facility] Admin [facility] Comment on above: Coronary artery dise ase, unspecified vessel or lesion type, unspecified whether angina present, unspecified whether tribe or transplanted heart; Hyperlipidemia, unspecified hyperlipidemia type Start: 09-15-2024 End: 09-15-2024 ambulatory [facility] Start: 08-29-2024 Non-patient / Non-visit Stefani Newell MD Work Phone: [facility] Work Phone: Start: 08-28-2024 End: 08-29-2024 Evaluation and management of inpatient Demarco Newell MD Work Phone: [facility] Work Phone: Start: 08-12-2024 End: 08-12-2024 Annia Cheung MD Work Phone: [facility] Start: 08-12-2024 End: 08-12-2024 Annia Cheung MD Work Phone: [facility] Start: 08-12-2024 End: 08-12-2024 ambulatory DISHA CHEUNG Not Available Start: 07-29-2024 End: 07-29-2024 Patient encounter procedure Demarco Newell MD Work Phone: [facility] Work Phone: Start: 07-29-2024 End: 07-29-2024 ambulatory Referral Self Facility:[facility] Start: 07-16-2024 End: 07-16-2024 [facility] Start: 07-16-2024 End: 07-16-2024 Office outpatient visit 25 minutes Víctor Wills MD Work Phone: [facility] Comment on above: Obesity, Class I, BM I 30-34.9 (Primary Dx); Coronary artery disease, unspecified vessel or lesion type, unspecified whether angina present, unspecified whether tribe or transplanted heart; Diastolic dysfunction; Mitral valve insufficiency, unspecified etiology; Aortic valve insufficiency, etiology of cardiac valve disease unspecified; Paroxysmal atrial fibrillation (Multi); History of PTCA; Mixed hyperlipidemia; Stage 3 chronic kidney disease, unspecified whether stage 3a or 3b CKD (Multi); Former smoker Start: 06-09-2024 End: 06-09-2024 Office outpatient visit 15 minutes Disha Cheung MD Work Phone: [facility] Comment on above: Flexural atopic derm atitis (Primary Dx) Start: 06-09-2024 End: 06-09-2024 ambulatory DISHA CHEUNG Not Available Start: 06-09-2024 End: 06-09-2024 Bamboo flowsmel Cheung MD Work Phone: [facility] Start: 06-09-2024 End: 06-09-2024 Bamboo flowsmel Cheung MD Work Phone: [facility] Start: 04-21-2024 End: 04-21-2024 Patient encounter procedure Stacy Henderson MD Work Phone: [facility] Comment on above: Encounter for screen ing mammogram for malignant neoplasm of breast (Primary Dx); Vaginal itching; Encounter for gynecological examination without abnormal finding; Screening for malignant neoplasm of cervix; Postmenopausal; Osteoporosis, post-menopausal (CMS/HCC); Acute vaginitis Start: 04-21-2024 End: 04-21-2024 Patient encounter status Stacy Henderson MD Work Phone: [facility] Start: 04-21-2024 End: 04-21-2024 ambulatory STACY HENDERSON Not Available Start: 04-07-2024 End: 04-07-2024 Office outpatient visit 25 minutes Disha Cheung MD Work Phone: [facility] Comment on above: Flexural atopic derm atitis (Primary Dx); Chronic rhinitis Start: 04-07-2024 End: 04-07-2024 ambulatory DISHA CHEUNG Not Available Start: 04-07-2024 End: 04-07-2024 Bamboo flowsheet Disha Cheung MD Work Phone: [facility] Start: 04-07-2024 End: 04-07-2024 Bamboo flowsheet Disha Cheung MD Work Phone: [facility] Start: 04-07-2024 End: 04-07-2024 Telephone encounter Disha Cheung MD Work Phone: [facility] Start: 01-20-2024 End: 01-20-2024 Emergency department patient visit MD Demarco Newell Work Phone: [facility] Work Phone: Start: 01-20-2024 End: 01-20-2024 ambulatory BALDOMERO ASTUDILLO Not Available Start: 01-12-2024 End: 01-12-2024 Office outpatient new 60 minutes Víctor Wills MD Work Phone: [facility] Comment on above: History of PTCA (Sarah kelsi Dx); Paroxysmal atrial fibrillation (Multi); Coronary artery disease, unspecified vessel or lesion type, unspecified whether angina present, unspecified whether tribe or transplanted heart; Hyperlipidemia, unspecified hyperlipidemia type; Diastolic dysfunction; High risk medication use; Mitral valve insufficiency, unspecified etiology; Aortic valve insufficiency, etiology of cardiac valve disease unspecified; Stage 3 chronic kidney disease, unspecified whether stage 3a or 3b CKD (Multi); BMI 30.0-30.9,adult; Former smoker Start: 12-23-2023 End: 12-23-2023 Office outpatient visit 25 minutes Vasyl Covarrubias MD Work Phone: [facility] Comment on above: 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) (Primary Dx); Paroxysmal atrial fibrillation (HCC); Chronic anticoagulation Start: 12-15-2023 End: 11-04-2024 Telephone encounter Vasyl Covarrubias MD Work Phone: DR SATISH WARREN Start: 12-11-2023 ambulatory Vijay Lau Pulmon[facility] Start: 12-09-2023 Telephone encounter Tang Harmon NOC Comment on above: Follow Up Phone Call (RC f/u all clear/) Start: 12-04-2023 ambulatory Barry Whiting [facility] Work Phone: Pharmacy Start: 12-04-2023 Telephone encounter Lui Harmon [facility] Comment on above: Follow Up Phone Call (RC follow up call first attempt./) Follow Up Phone Call (RC follow up call all clear. /) Transition Of Care ( TCM Pharmacy-Hospital discharge 12/03/23); Heart Failure Coronary artery dise ase with angina pectoris, unspecified vessel or lesion type, unspecified whether tribe or transplanted heart (HCC) (Primary Dx) Start: 12-03-2023 End: 12-03-2023 Evaluation and management of inpatient JOEL PARRISH Facility:[facility] Start: 12-02-2023 End: 12-03-2023 Patient encounter procedure Song Tyler MD Work Phone: Cardiology Start: 12-02-2023 End: 12-03-2023 ambulatory Favian Jane APRN.[employer] Work Phone: Pulmonary Medicine Start: 11-28-2023 End: 11-28-2023 Evaluation and management of inpatient JOEL PARRISH Facility:[facility] Start: 11-28-2023 End: 11-28-2023 Evaluation and management of inpatient Pulm Fct Lab Main 3 [facility] Comment on above: Pre-operative cardio vascular examination (Primary Dx) Start: 11-28-2023 End: 11-28-2023 Patient encounter status Pulm [facility] Work Phone: Start: 11-27-2023 End: 11-27-2023 Evaluation and management of inpatient HARRISON ANDREWS Facility:[facility] Start: 11-27-2023 ambulatory TARJUAN DAVID SHAW Facility:[facility] Start: 11-27-2023 Encounter for preprocedural cardiovascular examination JOEL MADINA [facility] Start: 11-26-2023 Preprocedural examination done Pulm 3 [facility] Work Phone: Start: 11-26-2023 End: 11-26-2023 Evaluation and management of inpatient DEMARCO NEWELL Facility:[facility] Start: 11-25-2023 End: 12-03-2023 Evaluation and management of inpatient BECCA SILVERIO Facility:[facility] Start: 11-24-2023 End: 11-25-2023 Evaluation and management of inpatient DEMARCO NEWELL Facility:[facility] Start: 11-17-2023 Refill Vasyl Covarrubias MD Work Phone: [facility] Start: 11-09-2023 End: 11-10-2023 Emergency department patient visit Jalen Flores Facility:[facility] Start: 11-09-2023 End: 11-10-2023 Emergency department patient visit Jalen Flores [facility] Start: 11-04-2023 Emergency department patient visit DEMARCO NEWELL Facility:[facility] Start: 10-31-2023 Patient encounter status Gaetano Shaw MD Work Phone: [facility] Start: 10-31-2023 Telephone encounter Gaetano wilson MD Work Phone: Cardiothoracic Comment on above: Insurance Inquiry Referral Information ; Cardiac Preop Checklist Start: 10-26-2023 End: 11-02-2023 Evaluation and management of inpatient DEMARCO NEWELL Facility:[facility] Start: 10-17-2023 Telephone encounter Ziyad Harmon Cardiology Start: 10-14-2023 End: 10-14-2023 Emergency department patient visit DEMARCO NEWELL Facility:[facility] Start: 09-16-2023 Orders Only Shravan rodríguez MD Work Phone: Cardiology Comment on above: Hypertension, unspec ified type (Primary Dx); Coronary artery disease involving tribe coronary artery of tribe heart, unspecified whether angina present; Hyperlipidemia, unspecified hyperlipidemia type Start: 09-03-2023 End: 09-03-2023 ambulatory [facility] Start: 08-06-2023 End: 08-07-2023 ambulatory [facility] Start: 07-08-2023 End: 07-09-2023 ambulatory DINORAH [facility] Start: 06-11-2023 End: 06-11-2023 ambulatory MD Demarco Newell Work Phone: [facility] Work Phone: Start: 06-11-2023 End: 06-11-2023 Patient encounter procedure MD Demarco Newell Work Phone: [facility] Work Phone: Start: 03-28-2023 End: 03-28-2023 ambulatory [facility] Start: 11-12-2022 End: 11-13-2022 ambulatory MADELYN [...] 06-10-2022 ambulatory MD Demarco Newell Work Phone: [facility] Work Phone: Start: 06-10-2022 End: 06-10-2022 Patient encounter procedure MD Demarco Newell Work Phone: [facility] Start: 05-02-2022 End: 05-02-2022 [...] Start: 05-11-2020 End: 05-12-2020 ambulatory DEMARCO NEWELL Facility:[facility] Start: 04-04-2020 End: 04-05-2020 ambulatory DEMARCO NEWELL Facility:[facility] Start: 02-24-2019 End: 03-05-2019 Evaluation and management of inpatient CHRISTIE MARIA VICTORIA [facility] Start: 02-23-2019 End: 02-24-2019 Evaluation and management of inpatient JOEL [facility] Start: 02-23-2019 End: 02-26-2019 Patient encounter procedure [facility] Start: 02-22-2019 End: 02-24-2019 Patient encounter procedure [facility] Start: 02-22-2019 End: 02-27-2019 Patient encounter procedure [facility] Procedures Date Procedure Procedure Detail Performing Clinician Start: 04-28-2025 Plain chest X-ray Ric Newell MD Work Phone: Start: 04-17-2025 Viral nucleic acid assay Demarco Newell MD Work Phone: Start: 04-17-2025 Plain chest X-ray Ric Newell MD Work Phone: Start: 10-04-2024 Ecg routine ecg w/le ast 12 lds w/i&r Víctor Wills MD Work Phone: Start: 09-15-2024 Cv strs tst xers&/or rx cont ecg trcg only Vcítor Wills MD Work Phone: Start: 08-28-2024 Computed [...] routine ecg w/le ast 12 lds w/i&r Vasyl Covarrubias MD Work Phone: Start: 11-26-2023 Antibody screen JOEL PARRISH Comment on above: Order Comment: Speci men Type: BLOOD SPECIMENOrdering Facility: [facility] Address: [address] [place] [address] Performed By: #### T SCR ####CC MAIN BLOOD BANKCLIA [id number] [facility] [id number] [id number] [place] Start: 10-26-2023 Thyrotropin [...] JOEL ASHLEY Start: 03-02-2019 INCENTIVE SPIROMETRY RT JOLE ASHLEY Start: 03-02-2019 INITIATE OXYGEN THER APY [...] ASHLEY Start: 02-27-2019 INCENTIVE SPIROMETRY RT JOEL AHSLEY Start: 02-27-2019 INITIATE OXYGEN THER APY PROTOCOL [...] INCENTIVE SPIROMETRY RT JOEL ASHLEY Start: 02-25-2019 MARKETING SERVICES MANAGER EVAL AND TREAT JOEL Y OO Start: [...] d ev cleared fda spec home use JOEL ASHLEY Start: 02-24-2019 INCENTIVE SPIROMETRY RT [...] JOEL ASHLEY Start: 02-23-2019 TRANSFER PATIENT JOEL ASHLEY Start: 02-23-2019 FLUORO FOR SURGICAL PROCEDURES JOEL ASHLEY Start: 02-23-2019 Level iv surg pathol ogy gross&microscopic exam JOEL ASHLEY Start: 02-23-2019 Level iv surg [...] Author Start: 12-02-2026 Diabetes Screening Diabetes Screening [facility] Start: 12-01-2026 Diabetes Screening Diabetes Screening [facility] Start: 11-27-2026 Diabetes Screening Diabetes Screening [facility] Start: 11-04-2026 Diabetes Screening Diabetes Screening [facility] Start: 10-30-2026 Diabetes Screening Diabetes Screening [facility] Start: 10-12-2026 Diabetes Screening Diabetes Screening [facility] Start: 10-11-2025 End: 10-11-2025 Patient encounter procedure 10/11/2025 10:10 AM EST Office Visit [facility] [address] [facility] [address] [place] [address] Víctor Wills MD [address] [facility] [address] [place] [address] [facility] Start: 04-11-2025 Influenza vaccination Influenza Vaccine (#1) [facility] Start: 04-08-2025 End: 04-08-2025 Patient encounter procedure 04/08/2025 10:45 AM EDT Appointment [place] [id number] [facility] [address] [place] [phone] [facility] Start: 02-24-2025 End: 02-24-2026 Alanine aminotransferase [Enzymatic activity/volume] in Serum or Plasma by With P-5'-P Alanine Aminotransferase Lab Routine Coronary artery disease, unspecified vessel or lesion type, unspecified whether angina present, unspecified whether tribe or transplanted heart Hyperlipidemia, unspecified hyperlipidemia type Expected: 02/24/2025 (Approximate), Expires: 02/24/2026 [facility] Service Area Work Phone: Comment on above: Expected: 02/24/2025 (Approximate), Expi res: 02/24/2026 Start: 02-24-2025 End: 02-24-2026 Aspartate aminotransferase [Enzymatic activity/volume] in Serum or Plasma by With P-5'-P Aspartate Aminotransferase Lab Routine Coronary artery disease, unspecified vessel or lesion type, unspecified whether angina present, unspecified whether tribe or transplanted heart Hyperlipidemia, unspecified hyperlipidemia type Expected: 02/24/2025 (Approximate), Expires: 02/24/2026 [facility] Work Phone: Comment on above: Expected: 02/24/2025 (Approximate), Expi res: 02/24/2026 Start: 02-24-2025 End: 02-24-2026 Basic metabolic 2000 panel - Serum or Plasma Basic Metabolic Panel Lab Routine Coronary artery disease, unspecified vessel or lesion type, unspecified whether angina present, unspecified whether tribe or transplanted heart Paroxysmal atrial fibrillation (Multi) Expected: 02/24/2025 (Approximate), Expires: 02/24/2026 [facility] Work Phone: Comment on above: Expected: 02/24/2025 (Approximate), Expi res: 02/24/2026 Start: 02-24-2025 End: 02-24-2026 CBC panel - Blood by Automated count CBC Lab Routine Coronary artery disease, unspecified vessel or lesion type, unspecified whether angina present, unspecified whether tribe or transplanted heart Paroxysmal atrial fibrillation (Multi) Expected: 02/24/2025 (Approximate), Expires: 02/24/2026 [facility] Work Phone: Comment on above: Expected: 02/24/2025 (Approximate), Expi res: 02/24/2026 Start: 02-24-2025 End: 02-24-2026 Lipid 1996 panel - Serum or Plasma Lipid Panel Lab Routine Coronary artery disease, unspecified vessel or lesion type, unspecified whether angina present, unspecified whether tribe or transplanted heart Hyperlipidemia, unspecified hyperlipidemia type Expected: 02/24/2025 (Approximate), Expires: 02/24/2026 [facility] Work Phone: Comment on above: Expected: 02/24/2025 (Approximate), Expi res: 02/24/2026 Start: 02-24-2025 End: 02-24-2027 Heart Transthoracic Transthoracic Echo Limited Echocardiography Routine Coronary artery disease, unspecified vessel or lesion type, unspecified whether angina present, unspecified whether tribe or transplanted heart Aortic valve insufficiency, etiology of cardiac valve disease unspecified Expected: 02/24/2025 (Approximate), Expires: 02/24/2027 [facility] Work Phone: Comment on above: Expected: 02/24/2025 (Approximate), Expi res: 02/24/2027 Start: 02-24-2025 End: 02-24-2025 Patient encounter procedure 02/24/2025 10:20 AM EDT Office Visit [facility] [address] [place] [phone] Víctor Wills MD [address] [place] [address] [facility] Start: 12-22-2024 BP Controlled (<130/80) BP Controlled (<130/80) [facility] Start: 12-02-2024 Complete blood count Hemoglobin/Hematocrit [facility] Start: 12-02-2024 Creatinine measurement Serum Creatinine [facility] Start: 12-01-2024 Complete blood count Hemoglobin/Hematocrit [facility] Start: 12-01-2024 Creatinine measurement Serum Creatinine [facility] Start: 11-27-2024 Complete blood count Hemoglobin/Hematocrit [facility] Start: 11-27-2024 Creatinine measurement Serum Creatinine [facility] Start: 10-30-2024 Hepatitis B surface antibody level LDL Cholesterol [facility] Start: 10-25-2024 Thyroid stimulating hormone measurement TSH Level [facility] Start: 10-04-2024 End: 10-04-2024 Patient encounter procedure 10/04/2024 3:00 PM EST Office Visit [facility] [address] [place] [phone] Víctor Wills MD [address] [place] [address] [facility] Start: 10-04-2024 End: 10-04-2025 Alanine aminotransferase [Enzymatic activity/volume] in Serum or Plasma by With P-5'-P Alanine Aminotransferase Lab Routine Mixed hyperlipidemia Expected: 10/04/2024, Expires: 10/04/2025 [facility] Service Area Work Phone: Comment on above: Expected: 10/04/2024, Expires: Start: 10-04-2024 End: 10-04-2025 Aspartate aminotransferase [Enzymatic activity/volume] in Serum or Plasma by With P-5'-P Aspartate Aminotransferase Lab Routine Mixed hyperlipidemia Expected: 10/04/2024, Expires: 10/04/2025 [facility] Work Phone: Comment on above: Expected: 10/04/2024, Expires: Start: 10-04-2024 End: 10-04-2025 Basic metabolic 2000 panel - Serum or Plasma Basic Metabolic Panel Lab Routine Coronary artery disease, unspecified vessel or lesion type, unspecified whether angina present, unspecified whether tribe or transplanted heart Stage 3a chronic kidney disease (Multi) Expected: 10/04/2024, Expires: 10/04/2025 [facility] Work Phone: Comment on above: Expected: 10/04/2024, Expires: Start: 10-04-2024 End: 10-04-2025 CBC panel - Blood by Automated count CBC Lab Routine Coronary artery disease, unspecified vessel or lesion type, unspecified whether angina present, unspecified whether tribe or transplanted heart Stage 3a chronic kidney disease (Multi) Expected: 10/04/2024, Expires: 10/04/2025 [facility] Work Phone: Comment on above: Expected: 10/04/2024, Expires: Start: 10-04-2024 End: 10-04-2025 Lipid 1996 panel - Serum or Plasma Lipid Panel Lab Routine Mixed hyperlipidemia Expected: 10/04/2024, Expires: 10/04/2025 [facility] Work Phone: Comment on above: Expected: 10/04/2024, Expires: Start: 08-29-2024 [facility] Start: 08-28-2024 Consultation [facility] Start: 08-28-2024 Hospital admission [facility] Start: 08-28-2024 Referral to antisqueak worker [facility] Start: 08-28-2024 Hospital admission [facility] Start: 08-28-2024 End: 08-28-2024 Urine culture [facility] Start: 08-28-2024 Bacteria identified in Urine by Culture Urine Culture [facility] Start: 08-12-2024 End: 08-12-2024 Patient encounter procedure 08/12/2024 11:00 AM EST Office Visit [facility] [address] [place] [phone] Disha Cheung MD [address] [place] [address] Arrived [facility] Comment on above: Arrived Start: 08-11-2024 Advance Directive Discussion Advance Directive Discussion [facility] Start: 08-02-2024 End: 08-02-2024 Patient encounter procedure 08/02/2024 3:40 PM EST Office Visit [facility] [address] [place] [id number] Disha Cheung MD [address] [place] [address] [facility] Start: 07-16-2024 End: 07-16-2024 Patient encounter procedure 07/16/2024 2:30 PM EST Office Visit [facility] [address] [place] [id number] Víctor Wills MD [address] [place] [address] [facility] Start: 07-16-2024 End: 07-16-2025 Alanine aminotransferase [Enzymatic activity/volume] in Serum or Plasma by With P-5'-P Alanine Aminotransferase Lab Routine Coronary artery disease, unspecified vessel or lesion type, unspecified whether angina present, unspecified whether tribe or transplanted heart Mixed hyperlipidemia Expected: 07/16/2024 (Approximate), Expires: 07/16/2025 [facility] Work Phone: Comment on above: Expected: 07/16/2024 (Approximate), Expi res: 07/16/2025 Start: 07-16-2024 End: 07-16-2025 Aspartate aminotransferase [Enzymatic activity/volume] in Serum or Plasma by With P-5'-P Aspartate Aminotransferase Lab Routine Coronary artery disease, unspecified vessel or lesion type, unspecified whether angina present, unspecified whether tribe or transplanted heart Mixed hyperlipidemia Expected: 07/16/2024 (Approximate), Expires: 07/16/2025 [facility] Work Phone: Comment on above: Expected: 07/16/2024 (Approximate), Expi res: 07/16/2025 Start: 07-16-2024 End: 07-16-2025 Basic metabolic 2000 panel - Serum or Plasma Basic Metabolic Panel Lab Routine Coronary artery disease, unspecified vessel or lesion type, unspecified whether angina present, unspecified whether tribe or transplanted heart Diastolic dysfunction Expected: 07/16/2024 (Approximate), Expires: 07/16/2025 [facility] Work Phone: Comment on above: Expected: 07/16/2024 (Approximate), Expi res: 07/16/2025 Start: 07-16-2024 End: 07-16-2025 CBC panel - Blood by Automated count CBC Lab Routine Coronary artery disease, unspecified vessel or lesion type, unspecified whether angina present, unspecified whether tribe or transplanted heart Diastolic dysfunction Expected: 07/16/2024 (Approximate), Expires: 07/16/2025 [facility] Work Phone: Comment on above: Expected: 07/16/2024 (Approximate), Expi res: 07/16/2025 Start: 07-16-2024 End: 07-16-2025 Lipid 1996 panel - Serum or Plasma Lipid Panel Lab Routine Coronary artery disease, unspecified vessel or lesion type, unspecified whether angina present, unspecified whether tribe or transplanted heart Mixed hyperlipidemia Expected: 07/16/2024 (Approximate), Expires: 07/16/2025 [facility] Work Phone: Comment on above: Expected: 07/16/2024 (Approximate), Expi res: 07/16/2025 Start: 06-20-2024 Pneumococcal vaccination Pneumococcal Vaccine (2 of 2 - PCV) [facility] Start: 06-20-2024 Pneumococcal Vaccine: 50+ (2 of 2 - PCV) Pneumococcal Vaccine: 50+ (2 of 2 - PCV) [facility] Start: 06-20-2024 Pneumococcal Vaccine: 65+ (2 of 2 - PCV) Pneumococcal Vaccine: 65+ (2 of 2 - PCV) [facility] Start: 06-20-2024 Pneumococcal Vaccine: 65+ Years (2 of 2 - PCV) Pneumococcal Vaccine: 65+ Years (2 of 2 - PCV) [facility] Start: 06-09-2024 End: 06-09-2024 Patient encounter procedure [facility] Comment on above: Arrived Start: 04-21-2024 End: 06-21-2025 DBT Breast - bilateral screening Bilateral screening mammogram with tomosynthesis Imaging Routine Encounter for screening mammogram for malignant neoplasm of breast Expected: 04/21/2024, Expires: 06/21/[address] [facility] Work Phone: Comment on above: Expected: 04/21/2024, Expires: Start: 04-11-2024 Covid-19 Vaccine ( season) Covid-19 Vaccine ( season) [facility] Start: 04-11-2024 Influenza vaccination [facility] Start: 04-07-2024 End: 04-07-2024 Patient encounter procedure 04/07/2024 2:20 PM EDT Office Visit [facility] [address] [place] [address] Disha Cheung MD [address] [place] [address] Arrived [facility] Comment on above: Arrived Start: 01-08-2024 End: 01-08-2024 Patient encounter procedure 01/08/2024 11:30 AM EDT Office Visit Cardiology [address] [place] [address] Song Tyler MD [address] [place] [address] Clinician, Interventional [address] [place] [address] hx stents; SOB Cardiology Comment on above: hx stents; SOB Start: 01-08-2024 End: 01-08-2024 ambulatory 01/08/2024 10:45 AM EDT Results Only Cardiology [address] [place] [address] hx stents; SOB Cardiology Comment on above: hx stents; SOB Start: 01-06-2024 End: 01-06-2024 Patient encounter procedure 01/06/2024 11:00 AM EDT Office Visit [facility] SATISH WARREN [address] [place], [place] [phone] [place] [address] [place], [place] [phone] [facility] maxime WARREN Comment on above: neisha swartz Start: 12-31-2023 End: 12-31-2023 Patient encounter procedure 12/31/2023 10:00 AM EDT Office Visit [facility] [address] [id number] [place] [address] [place], [place] [id number] CKD [facility] Comment on above: CKD Start: 12-05-2023 End: 12-05-2023 Admission to same day surgery center 12/05/2023 7:00 AM EDT - 12/05/2023 4:00 PM EDT Surgery Admitting [address] [place] [address] Gaetano Shaw MD [address] [address] MVr-CABG [id number] +/- AVR (2-3) Admitting Comment on above: MVr-CABG [id number] +/- AVR (2-3) Start: 12-05-2023 End: 12-05-2023 Coronary artery bypass 1 coronary venous graft BYPASS GRAFT ARTERY CORONARY ON-PUMP SINGLE CORONARY VENOUS GRAFT Pre-operative cardiovascular examination Aortic valve disorder Paroxysmal atrial fibrillation (HCC) Atherosclerosis of tribe coronary artery of tribe heart without angina pectoris Mitral valve disorder 12/05/2023 7:00 AM EDT [facility] Start: 12-05-2023 End: 12-05-2023 Maze procedure for atrial fibrillation FULL MAZE W/ CARDIOPULMONARY BYPASS Pre-operative cardiovascular examination Aortic valve disorder Paroxysmal atrial fibrillation (HCC) Atherosclerosis of tribe coronary artery of tribe heart without angina pectoris Mitral valve disorder 12/05/2023 7:00 AM EDT [facility] Start: 12-05-2023 Subsequent hospital visit by physician 12/05/2023 7:00 AM EDT Hospital Encounter Admitting [address] [place] [address] Gaetano Shaw MD [address] [address] Pre-operative cardiovascular examination [Z01.810] Admitting Comment on above: Pre-operative cardiovascular examination [Z01.810] Start: 12-05-2023 End: 12-05-2023 Vlvp mitral valve w/card byp w/prostc ring VALVULOPLASTY MITRAL W/ RING AND BYPASS Pre-operative cardiovascular examination Aortic valve disorder Paroxysmal atrial fibrillation (HCC) Atherosclerosis of tribe coronary artery of tribe heart without angina pectoris Mitral valve disorder 12/05/2023 7:00 AM EDT [facility] Start: 12-04-2023 End: 12-04-2023 Patient encounter procedure Cardiothoracic Comment on above: [facility] 12/05/23 MALAS Start: 12-04-2023 End: 12-04-2023 ambulatory Pulmonary Medicine Comment on above: i05.9 Start: 12-03-2023 End: 12-03-2023 Patient encounter procedure Vascular Medicine Comment on above: Shortness of breath; Pre-operative cardiovascular examination; Aortic valve disorder; Paroxysmal atrial fibrillation (HCC); Atherosclerosis of tribe coronary artery of tribe heart without angina pectoris; Mitral valve disorder CYCLOPS i05.9 Start: 12-03-2023 End: 12-03-2023 ambulatory 12/03/2023 9:15 AM EDT Results Only [place] [address] [address] [place] [address] i05.9 [facility] Comment on above: i05.9 Start: 11-11-2023 End: 02-10-2024 aPTT in Platelet poor plasma by Coagulation assay ACTIVATED PTT Lab Routine Pre-operative cardiovascular examination Aortic valve disorder Paroxysmal atrial fibrillation (HCC) Atherosclerosis of tribe coronary artery of tribe heart without angina pectoris Mitral valve disorder Expected: 11/11/2023 (Approximate), Expires: 02/10/2024 [facility] Work Phone: Comment on above: Expected: 11/11/2023 (Approximate), Expi res: 02/10/2024 Start: 11-11-2023 End: 02-10-2024 Comprehensive metabolic 2000 panel - Serum or Plasma COMP METABOLIC PANEL Lab Routine Pre-operative cardiovascular examination Aortic valve disorder Paroxysmal atrial fibrillation (HCC) Atherosclerosis of tribe coronary artery of tribe heart without angina pectoris Mitral valve disorder Expected: 11/11/2023, Expires: 02/10/2024 [facility] Work Phone: Comment on above: Expected: 11/11/2023, Expires: Start: 11-11-2023 End: 02-10-2024 CONFIRM BLOOD TYPE CONFIRM BLOOD TYPE Blood Bank Routine Pre-operative cardiovascular examination Aortic valve disorder Paroxysmal atrial fibrillation (HCC) Atherosclerosis of tribe coronary artery of tribe heart without angina pectoris Mitral valve disorder Expected: 11/11/2023, Expires: 02/10/2024 [facility] Work Phone: Comment on above: Expected: 11/11/2023, Expires: Start: 11-11-2023 End: 02-10-2024 Lactate dehydrogenase [Enzymatic activity/volume] in Serum or Plasma LD LACTATE DEHYDRO Lab Routine Pre-operative cardiovascular examination Aortic valve disorder Paroxysmal atrial fibrillation (HCC) Atherosclerosis of tribe coronary artery of tribe heart without angina pectoris Mitral valve disorder Expected: 11/11/2023, Expires: 02/10/2024 [facility] Work Phone: Comment on above: Expected: 11/11/2023, Expires: Start: 11-11-2023 End: 02-10-2024 PT panel - Platelet poor plasma by Coagulation assay PROTHROMBIN TIME Lab Routine Pre-operative cardiovascular examination Aortic valve disorder Paroxysmal atrial fibrillation (HCC) Atherosclerosis of tribe coronary artery of tribe heart without angina pectoris Mitral valve disorder Expected: 11/11/2023 (Approximate), Expires: 02/10/2024 [facility] Work Phone: Comment on above: Expected: 11/11/2023 (Approximate), Expi res: 02/10/2024 Start: 11-11-2023 End: 02-10-2024 Thyrotropin [Units/volume] in Serum or Plasma TSH BLD Lab Routine Pre-operative cardiovascular examination Aortic valve disorder Paroxysmal atrial fibrillation (HCC) Atherosclerosis of tribe coronary artery of tribe heart without angina pectoris Mitral valve disorder Expected: 11/11/2023 (Approximate), Expires: 02/10/2024 [facility] Work Phone: Comment on above: Expected: 11/11/2023 (Approximate), Expi res: 02/10/2024 Start: 11-11-2023 End: 02-10-2024 TYPE AND SCREEN,30 DAY TYPE AND SCREEN,30 DAY Blood Bank Routine Pre-operative cardiovascular examination Aortic valve disorder Paroxysmal atrial fibrillation (HCC) Atherosclerosis of tribe coronary artery of tribe heart without angina pectoris Mitral valve disorder Expected: 11/11/2023, Expires: 02/10/2024 [facility] Work Phone: Comment on above: Expected: 11/11/2023, Expires: Start: 11-11-2023 End: 02-10-2024 URINALYSIS, DIPSTICK ONLY URINALYSIS, DIPSTICK ONLY Lab Routine Pre-operative cardiovascular examination Aortic valve disorder Paroxysmal atrial fibrillation (HCC) Atherosclerosis of tribe coronary artery of tribe heart without angina pectoris Mitral valve disorder Expected: 11/11/2023, Expires: 02/10/2024 [facility] Work Phone: Comment on above: Expected: 11/11/2023, Expires: 4 Start: 08-11-2023 Advance Directive Discussion Advance Directive Discussion [facility] Start: 08-11-2023 Depression Assessment Depression Assessment [facility] Start: 04-11-2023 Covid-19 Vaccine () Covid-19 Vaccine () [facility] Start: 04-11-2023 Influenza vaccination Influenza Vaccine (#1) [facility] Start: 03-07-2023 End: 08-29-2023 IOL BIOMETRY W/ IOL CALC OU (BOTH EYES) IOL BIOMETRY W/ IOL CALC OU (BOTH EYES) OPHT Imaging Routine Combined forms of age-related cataract of both eyes Expected: 03/07/2023, Expires: 08/29/2023 [facility] Work Phone: Comment on above: Expected: 03/07/2023, Expires: 4 Start: 08-11-2022 ADVANCE DIRECTIVE DISCUSSION ADVANCE DIRECTIVE DISCUSSION [facility] Start: 07-09-2022 COVID-19 VACCINE (4 - Booster for Pfizer series) COVID-19 VACCINE (4 - Booster for Pfizer series) [facility] Start: 05-03-2022 COVID-19 VACCINE (4 - Booster for Pfizer series) COVID-19 VACCINE (4 - Booster for Pfizer series) [facility] Start: 04-11-2022 Influenza vaccination [facility] Start: 02-24-2022 Diabetes Screening Diabetes Screening [facility] Start: 08-11-2021 ADVANCE DIRECTIVE DISCUSSION ADVANCE DIRECTIVE DISCUSSION [facility] Start: 03-01-2021 COVID-19 VACCINE (3 - Booster for Pfizer series) COVID-19 VACCINE (3 - Booster for Pfizer series) [facility] Start: 2021 RSV High Risk: (Elderly (60+) or Population) (1 - 1-dose 75+ series) RSV High Risk: (Elderly (60+) or Population) (1 - 1-dose 75+ series) [facility] Start: 2021 RSV Vaccine (1 - 1-dose 75+ series) RSV Vaccine (1 - 1-dose 75+ series) [facility] Start: 06-20-2019 DIABETES SCREEN DIABETES SCREEN [facility] Start: 05-28-2018 Pneumococcal Vaccine: 65+ (2 of 2 - PCV) Pneumococcal Vaccine: 65+ (2 of 2 - PCV) [facility] Start: 05-28-2018 Pneumococcal Vaccine: 65+ Years (2 of 2 - PCV) Pneumococcal Vaccine: 65+ Years (2 of 2 - PCV) [facility] Start: 06-14-2017 Adult depression screening assessment DEPRESSION SCREENING [facility] Start: 05-30-2013 PNEUMOCOCCAL: 65+ (2 - PCV) PNEUMOCOCCAL: 65+ (2 - PCV) [facility] Start: 2011 BONE DENSITY BONE DENSITY [facility] Start: 2011 Screening for osteoporosis [facility] Start: 2006 RSV patients and/or patients aged 60+ years (1 - 1-dose 60+ series) RSV patients and/or patients aged 60+ years (1 - 1-dose 60+ series) [facility] Start: 2006 RSV Vaccine (1 - 1-dose 60+ series) RSV Vaccine (1 - 1-dose 60+ series) [facility] Start: 01-22-1996 SHINGRIX VACCINE (1 of 2) SHINGRIX VACCINE (1 of 2) [facility] Start: 01-22-1996 Zoster Vaccines (1 of 2) Zoster Vaccines (1 of 2) [facility] Start: 1991 COLOGUARD (FIT-DNA) COLOGUARD (FIT-DNA) [facility] Start: 1991 Colonoscopy COLONOSCOPY [facility] Start: 1991 COLORECTAL CANCER SCREENING COLORECTAL CANCER SCREENING [facility] Start: [address] COLONOGRAPHY [facility] Start: 1991 FECAL OCCULT BLOOD FECAL OCCULT BLOOD [facility] Start: 1991 LIPID SCREEN LIPID SCREEN [facility] Start: 1991 SIGMOIDOSCOPY SIGMOIDOSCOPY [facility] Start: 01-22-1968 DTaP/Tdap/Td Vaccines (1 - Tdap) DTaP/Tdap/Td Vaccines (1 - Tdap) [facility] Start: 1965 Urine microalbumin profile [facility] Start: 1965 Urine screening for protein CKD: Urine Protein Screening [facility] Start: 01-22-1964 ANNUAL PCP TEAM CHRONIC DISEASE VISIT ANNUAL PCP TEAM CHRONIC DISEASE VISIT [facility] Start: 01-22-1964 BP CONTROLLED (<130/80) BP CONTROLLED (<130/80) [facility] Start: 01-22-1964 Diabetes mellitus screening Diabetes Screening [facility] Start: 01-22-1964 Hepatitis B surface antibody level LDL CHOLESTEROL [facility] Start: 01-22-1964 HEPATITIS C SCREENING HEPATITIS C SCREENING [facility] Start: 01-22-1964 Hepatitis C screening Hepatitis C Screening [facility] Start: 1958 Adult depression screening assessment DEPRESSION SCREENING [facility] Start: 1951 COVID-19 VACCINE (#1) COVID-19 VACCINE (#1) [facility] Start: 1946 Creatinine measurement Creatinine Level [facility] Start: 1946 Echocardiography Echocardiogram [facility] Start: 1946 Lipid panel Lipid Panel [facility] Start: 1946 Medicare Annual Wellness Visit Medicare Annual Wellness Visit (AWV) [facility] Start: 1946 Potassium measurement Potassium Level [facility] Start: 1946 Screening for osteoporosis Bone Density Scan [facility] CORNEAL TOPOGRAPHY PENTACAM OU (BOTH EYES) CORNEAL TOPOGRAPHY PENTACAM OU (BOTH EYES) OPHT Imaging Routine Combined forms of age-related cataract of both eyes 04/24/2022 12:46 PM EDT [facility] Work Phone: End: 12-10-2024 CT Chest WO contrast CT CHEST WO IVCON Radiology Routine Pre-operative cardiovascular examination Aortic valve disorder Paroxysmal atrial fibrillation (HCC) Atherosclerosis of tribe coronary artery of tribe heart without angina pectoris Mitral valve disorder 1 Occurrences starting 11/11/2023 until 12/10/2024 [facility] Work Phone: Comment on above: 1 Occurrences starting 11/11/2023 until 12/10/2024 End: 09-16-2024 ECG COMPLETE ECG COMPLETE ECG Routine Hypertension, unspecified type Coronary artery disease involving tribe coronary artery of tribe heart, unspecified whether angina present Hyperlipidemia, unspecified hyperlipidemia type 1 Occurrences starting 09/16/2023 until 09/16/2024 [facility] Work Phone: Comment on above: 1 Occurrences starting 09/16/2023 until 09/16/2024 End: 12-03-2024 ECG COMPLETE ECG COMPLETE ECG Routine Coronary artery disease with angina pectoris, unspecified vessel or lesion type, unspecified whether tribe or transplanted heart (HCC) 1 Occurrences starting 12/04/2023 until 12/03/2024 [facility] Work Phone: Comment on above: 1 Occurrences starting 12/04/2023 until 12/03/2024 INTERACTIVE HEART SURGERY PROGRAM INTERACTIVE HEART SURGERY PROGRAM Procedures Routine Pre-operative cardiovascular examination Aortic valve disorder Paroxysmal atrial fibrillation (HCC) Atherosclerosis of tribe coronary artery of tribe heart without angina pectoris Mitral valve disorder Ordered: 11/11/2023 [facility] Work Phone: Comment on above: Ordered: 11/11/2023 End: 12-10-2024 LUNG DIFFUSION CAPACITY (DLCO) LUNG DIFFUSION CAPACITY (DLCO) PFT Routine Pre-operative cardiovascular examination Aortic valve disorder Paroxysmal atrial fibrillation (HCC) Atherosclerosis of tribe coronary artery of tribe heart without angina pectoris Mitral valve disorder 1 Occurrences starting 11/11/2023 until 12/10/2024 [facility] Work Phone: Comment on above: 1 Occurrences starting 11/11/2023 until 12/10/2024 [facility]aker miscellaneous test [facility] mis cellaneous test Lab Routine Vaginal itching Acute vaginitis Ordered: 04/21/2024 [facility] Comment on above: Ordered: 04/21/2024 Patient Education [facility] Work Phone: Patient referral [facility] Work Phone: End: 12-10-2024 SPIROMETRY BASELINE ONLY SPIROMETRY BASELINE ONLY PFT Routine Pre-operative cardiovascular examination Aortic valve disorder Paroxysmal atrial fibrillation (HCC) Atherosclerosis of tribe coronary artery of tribe heart without angina pectoris Mitral valve disorder 1 Occurrences starting 11/11/2023 until 12/10/2024 [facility] Work Phone: Comment on above: 1 Occurrences starting 11/11/2023 until 12/10/2024 End: 11-10-2024 US Carotid arteries - bilateral US CAROTID ARTERIES [facility] Vascular Lab Routine Other specified symptoms and signs involving the circulatory and respiratory systems Pre-operative cardiovascular examination Aortic valve disorder Paroxysmal atrial fibrillation (HCC) Atherosclerosis of tribe coronary artery of tribe heart without angina pectoris Mitral valve disorder 1 Occurrences starting 11/11/2023 until 11/10/2024 [facility] Work Phone: Comment on above: 1 Occurrences starting 11/11/2023 until 11/10/2024 End: 04-08-2025 US Heart Transthoracic [facility] Work Phone: Comment on above: Once for 1 Occurrences starting 04/08/20 until 04/08/2025 End: 11-10-2024 US LEG VEIN MAP [facility] US LEG VEIN MAP [facility] Vascular Lab Routine Shortness of breath Pre-operative cardiovascular examination Aortic valve disorder Paroxysmal atrial fibrillation (HCC) Atherosclerosis of tribe coronary artery of tribe heart without angina pectoris Mitral valve disorder 1 Occurrences starting 11/11/2023 until 11/10/2024 [facility] Work Phone: Comment on above: 1 Occurrences starting 11/11/2023 until 11/10/2024 [facility] Immunizations Immunization Date Immunization Notes Care Provider Fa cili 08-27-2022 influenza virus vacc ine, unspecified formulation Shravan Buchanan MD Work Phone: [facility] 05-30-2012 influenza virus vacc ine, unspecified formulation Franchesca Wayne MD Work Phone: [facility] 05-30-2012 pneumococcal polysaccharide vaccine, 23 valent Franchesca Wayne MD Work Phone: [facility] Payers Date Payer Category Payer Self-pay [id number] 2019 Medicare supplementa l policy (as second payer) [id number] 2019 Private Health Insurance [employer]N MEDICARE SUPPLEMENT [id number] 2019-Present [phone] [address] [place] [address] Indemnity [id number] 2019 Private Health Insurance [id number] 2019 Private Health Insurance [id number] 2016 Medicare [id number] 2016 Private Health Insurance [id number] 2011 Medicare MEDICARE MEDICAR E A AND B [id number] 2011-Present [phone] [address] [address] [place] [address] Medicare [id number] 2009 Medicare [id number] 1959 Medicare [id number] 1959 Private Health Insurance [id number] 1946 Unknown [id number] 2.16.840.1.266218.3.579. 2.182 1946 Unknown [id number] 2.16.840.1.372456.3.579. 2.182 1946 Unknown [id number] 2.16.840.1.065579.3.579. 2.182 1946 Unknown [id number] 2.16.840.1.474393.3.579. 2.182 1946 Unknown [id number] 2.16.840.1.689886.3.579. 2.182 1946 Unknown [id number] 2.16.840.1.327805.3.579. 2.182 1946 Unknown [id number] 2.16.840.1.970165.3.579. 2.647 1946 Unknown [id number] 2.16.840.1.561816.3.579. 2.647 1946 Unknown [id number] 2.16.840.1.298807.3.579. 2.593 1946 Unknown [id number] 2.16.840.1.088417.3.579. 2.593 1946 Unknown [id number] 2.16.840.1.390879.3.579. 2.593 1946 Unknown [id number] 2.16.840.1.608151.3.579. 2.593 1946 Unknown [id number] 2.16.840.1.928687.3.579. 2.593 1946 Unknown [id number] 2.16.840.1.742605.3.579. 2.727 1946 Unknown [id number] 2.16.840.1.415317.3.579. 2.1259 1946 Unknown [id number] 2.16.840.1.030186.3.579. 2.1259 1946 Unknown [id number] 2.16.840.1.203879.3.579. 2.1259 1946 Unknown [id number] 2.16.840.1.366582.3.579. 2.1259 1946 Unknown [id number] 2.16.840.1.727827.3.579. 2.1259 1946 Unknown [id number] 2.16.840.1.677543.3.579. 2.6 1946 Unknown [id number] 2.16.840.1.977519.3.579. 2.1245 1946 Unknown [id number] 2.16.840.1.777078.3.579. 2.1245 1946 Unknown [id number] 2.16.840.1.594290.3.579. 2.1245 1946 Unknown [id number] 2.16.840.1.912785.3.579. 2.1245 1946 Unknown [id number] 2.16.840.1.977081.3.579. 2.1245 1946 Unknown [id number] 2.16.840.1.994626.3.579. 2.1243 1946 Unknown [id number] 2.16.840.1.119717.3.579. 2.1243 1946 Unknown [id number] 2.16.840.1.291529.3.579. 2.1244 Unknown [id number] 2.16.840.1.948940.3.579. 2.531 Unknown [id number] 2.16.840.1.907330.3.579. 2.531 Unknown [id number] 2.16.840.1.970016.3.579. 2.531 Unknown [id number] 2.16.840.1.985841.3.579. 2.531 Social History Date Type Detail Facility Start: 04-28-2012 End: 04-28-2025 Tobacco smoking status NHIS Ex-smoker [facility] Start: 04-28-1986 End: 04-28-1990 History of tobacco use Current smoker [facility] Start: 04-28-1986 End: 04-28-1990 History of tobacco use Cigarette Smoker [facility] Start: 04-28-2012 End: 02-24-2025 Cigarettes smoked current (pack per day) - Reported 0.7 [facility] Start: 06-14-2016 End: 12-02-2023 Alcohol intake Current non-drinker of alcohol (finding) [facility] Start: 1945 Sex Assigned At Not on file C [facility] Start: 04-24-2022 Tobacco use and exposure Former smokeless tobacco user [facility] Work Phone: Start: 04-07-2022 End: 10-04-2024 Exposure to SARS-CoV-2 (event) Not sure [facility] Work Phone: Start: 1945 Sex Assigned At Female F [facility] Start: 10-18-2022 End: 02-24-2025 Tobacco use panel [facility] Start: 07-06-2022 National Score (1-10 0), lower number is lower risk 70 [facility] Has the GOBA, rPath, or water Enlightened Lifestyle threatened to shut off services in your home in past 12Mo No [facility] (I/We) worried sj (my/our) food would run out before (I/we) got money to buy more. Never true [facility] Start: 11-26-2023 End: 01-12-2024 Tobacco use and exposure Smokeless tobacco non-user [facility] Work Phone: Start: 01-12-2024 End: 02-24-2025 Alcoholic beverage intake Lifetime non-drinker (finding) [facility] Work Phone: Start: 01-20-2024 End: 04-17-2025 Tobacco smoking status NHIS Never smoked tobacco (finding) [facility] Start: 03-11-2023 Alcohol Comment Caffeine: 1-2 cups/day coffee [facility] Start: 03-06-2023 Gender identity Identifies as female gender (finding) [facility] Start: 08-28-2024 End: 08-29-2024 Sex Female (finding) [facility] Medical Equipment Procedure Code Equipment Code Equipment Original Text Equipment Identifier Dates Elan Bn Smpx P Radpq Fd Strl - [id number] Start: 05-27-2012 Sys Bncmnt Prep Kt Plg [facility] - [id number] Start: 05-27-2012 Comment on above: Description: CEMENT RESTRICTOR Stem Fem 50mm 12mm Elan Trthln - [id number] Start: 05-27-2012 Comment on above: Description: cemente d stem Aug Tib 10mm Trthln 3 Rt - [id number] Start: 05-27-2012 Comment on above: Description: AUGMENT Comp Fem 3 Rt Kn Total Stab - [id number] Start: 05-27-2012 Comment on above: Description: TS FEMU R Ins Tib 3 13mm K n X3 Cs Trthln - [id number] Start: 05-27-2012 Comment on above: Description: CS INSE RT Comp Pat 10mm 32mm Asym Trthln - [id number] Start: 05-27-2012 Comment on above: Description: PATELLA Baseplt Tib Trthln 3 Kn Total - [id number] Start: 05-27-2012 Comment on above: Description: UNIVERS AL BASEPLATE Lens Iol 0d +19. 5 Talat Uv Abs - [id number] Start: 05-01-2022 Comment on above: Description: -1.52 Lens Iol 0d +18 Talat Uv Abs - [id number] Start: 05-15-2022 Comment on above: Description: -0.34 Goals Date Patient Goal Desired Activity /State Personal health goal Personal health goal Functional Status Date Assessment Result Facility 08-29-2024 Functional status Patient at [facility] Work Phone: 12-03-2023 Are you deaf, or do you have serious difficulty hearing No 12/03/2023 3:49 PM Yas Johnson RN No [facility] 12-03-2023 Are you blind, or do you have serious difficulty seeing, even when wearing glasses No 12/03/2023 3:49 PM Yas Johnson RN No [facility] 12-03-2023 Do you have serious difficulty walking or climbing stairs No 12/03/2023 3:49 PM Yas Johnson RN No [facility] 12-03-2023 Do you have difficul ty dressing or bathing No 12/03/2023 3:49 PM Yas Johnson RN No [facility] 12-03-2023 Because of a physica l, mental, or emotional condition, do you have difficulty doing errands alone such as visiting a physician's office or shopping No 12/03/2023 3:49 PM EDYas Francisco RN No [facility] 11-09-2023 Functional Status N/A [facility] Mental Status Date Assessment Result Facility 08-29-2024 Cognitive function Cognitive Sta tus Patient at Baseline [facility] Work Phone: 12-03-2023 Because of a physica l, mental, or emotional condition, do you have serious difficulty concentrating, remembering, or making decisions No 12/03/2023 3:49 PM Yas Johnson RN No [facility] Clinical Notes 01-16-2022 to 02-24-2025 Víctor Wills MD - 02/24/2025 10:20 AM EDTPatient InstructionsHatara Wills MD - 10/04/2024 3:00 PM ESTPatient Instructions Note Date & Type Note Facility 02-24-2025 History of Present illness Narrative HPI Patient is in the office for follow-up for CAD and previous coronary angioplasty along with diastolic LV dysfunction, aortic and mitral regurgitation, paroxysmal atrial fibrillation and essential hypertension. Since the last visit he has had no cardiac events whatsoever. Denies any ER visit orthopnea PND chest pain or any tacky arrhythmias. She has had no bleeding complications. Her last echocardiogram was October 2023 at the [facility] and she is due for a follow-up echocardiogram. She has not had any recent blood work which will be scheduled. Her cardiovascular examination was unremarkable, her lungs were clear. Her medication reviewed, she is compliant with medical therapy. Assessment/recommendations: 9-eyd-wufwzh coronary artery disease status post angioplasty of the LAD in the remote past and angioplasty of the RCA with stenting for 70% stenosis at [facility] November 2023. Present medical therapy will be left unchanged. Risk factor for CAD have been controlled and the patient has been compliant. Emphasized the need for regular walking program up to 30 minutes 2-left ventricular diastolic dysfunction, currently on diuretic therapy with no recurrent symptoms. Blood pressure is controlled. 3-moderate mitral regurgitation, annual echocardiogram will be scheduled for follow-up soon 4-moderate aortic regurgitation, annual echocardiogram will be scheduled 5-paroxysmal atrial fibrillation it occurred once during the ACS intervention with no recurrences. Currently on warfarin, no recurrent atrial fibrillation and no bleeding complications 6-essential hypertension, currently under control, patient follow low-fat low-cholesterol low-salt diet, no sleep apnea is noted. [...] type, unspecified whether angina present, unspecified whether tribe or transplanted heart Follow Up In Cardiology [...] Attestation By signing my name below, I, Alison Hernandez LPN, Scribe attest that this documentation has [...] discussion and plan. documented in this encounter [facility] Work Phone: 02-24-2025 Instructions Alison Segundo LPN - 02/24/2025 10:20 AM [...] instructions on exercise. documented in this encounter [facility] Work Phone: 10-04-2024 History of Present illness Narrative Subjective [...] diastolic dysfunction. Examination today was unremarkable. Assessment/recommendations: 2-ieg-rvjzyj coronary artery disease status post angioplasty of the LAD in the remote past and angioplasty of the RCA with stenting for 70% stenosis at [facility] November 2023. Patient will continue on dual [...] mg) by mouth. Take as directed by [facility], Disp: , Rfl: Assessment/Plan 1. Coronary artery disease, unspecified vessel or lesion type, unspecified whether angina present, unspecified whether tribe or transplanted heart CBC Basic Metabolic Panel [...] discussion and plan. documented in this encounter [facility] Work Phone: 10-04-2024 Instructions Vielka Hatfield [...] copy to us documented in this encounter [facility] Work Phone: 08-29-2024 Discharge summary Note Date/Time August 29, 2024 3:54pm [facility] [address] [place] [address] Discharge Summary Signed Patient: Cece Hubbard MR#: [id number] : 1945 Acct:[id number] Age/Sex: 79 / F Adm Date: 5 Loc: Room: [address] [place] [address]: Lion Shook MD Copies to: MD Lion Watters MD~ Providers Date of Discharge: 08/29/24 Discharging Provider: Lion Shook Primary Care Provider: Demarco Newell Consults: 08/28/24 20:01 Consult to Cardiology Routine Comment: Consulting Provider: íVctor Wills Reason For Exam: New Onset CHF [...] was elevated 1100+. She was seenby the antisqueak worker. Patient was noted to the cardiology from office practice. Her medications have been optimized. Initially in the floor she was given IV Lasix she diuresed well. She is asymptomatic from pleural effusion. She was also seen by the vice president of recruiting who did not think patient would need any thoracentesis rather intensifying the management of atrial fibrillation and diastolic heart failure. On the day of discharge patient was at baseline. Vital signs were stable. Physical exam was benign. The details of the hospital stay, hospital course, lab data, imaging studies, and consultants' recommendations can be found in the EHR of [facility]. The patient left hospital appropriately in [...] % (Auto) 62.5, Lymph % (Auto) 19.2, Daggett % (Auto) 15.4, Eos % (Auto) 2.0, Baso % (Auto) 0.9, Nucleat RBC Rel Count 0.1, Neut # (Auto) 4.9, Lymph # (Auto) 1.5, Daggett # (Auto) 1.2 H, Eos # (Auto) [...] 1544 Signed By: <Electronically signed by Lion Sohok MD> 08/29/24 1555 [facility] Work Phone: 1(885) 216-394001-19-2025 Consult note Author Elton Baron [facility] Note Date/Time August 29, 2024 2 :02pm [facility] [address] [place] [address] Pulmonology Consult Note Signed Patient: Cece Hubbard MR#: [id number] : 1945 Acct:[id number] Age/Sex: 79 / F Adm Date: 5 Loc: Room: [address] [place] [address] Type: ADM IN Attending Dr: Lion Shook [...] on Coumadin and metoprolol recently was in [facility] for atrial fibrillation with RVR. She was [...] negative unless noted below or in HPI [facility] Medical History (Updated 08/29/24 @ 12:07 by [...] nondistended. Extremities: No edema. 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 Documented By: Elton Baron MD 08/29/24 1356 Signed By: <Electronically signed by Elton Baron MD> 08/29/24 140 [facility] Work Phone: 1(135) 702-451001-19-2025 [id number] Discharge Summary Signed Patient: Cece Hbubard MR#: [id number] : 1945 Acct:[id number] Age/Sex: 79 / F Adm Date: 5 Loc: Room: [address] [place] [address]: Lion Shook MD Copies to: [...] elevated 1100 +. She was seenby the antisqueak worker. Patient was noted to the cardiology from office practice. Her medications have been optimized. Initially in the floor she was given IV Lasix she diuresed well. Sheis asymptomatic from pleural effusion. She was also seen by the vice president of recruiting who did not think patient would need any thoracentesis rather intensifying the management of atrial fibrillation and diastolic heart failure. On the day of discharge patient was at baseline. Vital signs were stable. Physical exam was benign.The details of the hospital stay, hospital course, lab data, imaging studies, and consultants' recommendations can be found in the EHR of [facility]. The patient left hospital appropriately in [...] Neut % (Auto) 62.5, Lymph % (Auto) 19.2,Daggett % (Auto) 15.4, Eos % (Auto) 2.0, Baso % (Auto) 0.9, Nucleat RBC Rel Count 0.1, Neut # (Auto) 4.9, Lymph # (Auto) 1.5, Daggett # (Auto) 1.2 H, Eos # (Auto) [...] MD 08/29/24 1544 Signed By: 08/29/24 1554 [facility]01-19-2025 Consult note Author Víctor Wills [facility] Note Date/Time August 29, 2024 1 2:09pm [facility] [address] [place] [address] Cardiology Consult Note Signed Patient: Cece Hubbard MR#: [id number] : 1945 Acct:[id number] Age/Sex: 79 / F Adm Date: 5 Loc: Room: [address] [place] [address] Type: ADM IN Attending Dr: Lion Shook MD Copies to: MD Víctor Watters MD, [facility] Lion Shook MD~ Cardiology HPI History [...] had angioplasty of the RCA at the [facility]. Her ejection fraction is noted [...] has no dysuria or frequency in urination. [facility] Medical History (Updated 08/29/24 @ 12:07 by [...] x10E3/uL Lymph # (Auto) 1.5 (1.00-4.8) x10E3/uL Daggett # (Auto) 1.2 H (0.0-0.8) x10E3/uL Eos [...] right coronary artery November 2023 at the [facility] Plan: Continue Plavix and secondary [...] heart failure Documented By: Víctor Wills MD, [facility] 5 1158 Signed By: <Electronically signed by MD CAIN Wills> 08/29/24 1204 [facility] Work Phone: 1(256) 370-519601-19-2025 [place] [address] Pulmonology Consult Note Signed Patient: Cece Hubbard MR#: [id number] : 1945 Acct:[id number] Age/Sex: 79 / F Adm Date: 5 Loc: Room: [address] [place] [address] Type: ADM IN Attending Dr: Lion Shook [...] on Coumadin and metoprolol recently was in [facility] for atrial fibrillation with RVR. She was [...] negative unless noted below or in HPI [facility] Medical History (Updated 08/29/24 @ 12:07 by [...] nondistended. Extremities: No edema. Skin: No lesions GOVERNMENT AFFAIRS MANAGER: Awake alert and oriented x 3 follows [...] bedside. Documented By: Elton Baron MD 08/29/24 1356 Signed By: 08/29/24 1402 [facility]01-19-[address] [address] Cardiology Consult Note Signed Patient: Cece Hubbard MR#: [id number] : 1945 Acct:[id number] Age/Sex: 79 / F Adm Date: 5 Loc: Room: [address] [place] [address] Type: ADM IN Attending Dr: Lion Shook MD Copies to: MD Víctor Watters MD, [facility] Lion Shook MD~ Cardiology HPI History of Present Illness Consult Date: 08/29/24 Reason for Consult: Pleural effusion, elevated BNP HPI: Ms. Hubbard is a 79 year old female who is being seen at the request of the hospitalist. The requestfor what is reported as congestive heart failure. Thepatient is well-known to me and was seen in [facility] by myself in July 2024. The [...] had angioplasty of the RCA at the [facility]. Her ejection frac tion is [...] has no dysuria or frequency in urination. [facility] Medical History (Updated 08/29/24 @ 12:07 by [...] x10E3/uL Lymph # (Auto) 1.5 (1.00-4.8) x10E3/uL Daggett # (Auto) 1.2 H (0.0-0.8) x10E3/uL Eos [...] right coronary artery November 2023 at the [facility] Plan: Continue Plavix and secondary [...] heart failure Documented By: Víctor Wills MD, [facility] 5 1158 Signed By: 08/29/24 1209 [facility]01-18-2025 History and physical note Author Lion Shook [facility] Note Date/Time August 28, 2024 9 :30pm [facility] [address] [place] [address] Hospitalist H&P Signed Patient: Cece Hubbard MR#: [id number] : 1945 Acct:[id number] Age/Sex: 79 / F Adm Date: 5 Loc: 3T Room: [address] [place] [address] Type: ADM IN Attending Dr: Lion Shook [...] on Coumadin and metoprolol recently was in [facility] for atrial fibrillation with RVR. She was managed with beta-ken and was sent home with metoprolol extended release 25 mg/day. Since then patient has not been feeling well she became increasingly tired and noticed that she cannot sleep flat. She was getting short of breath. Her cardiac caths were done in [place] and also at [facility]. This time she felt like coming to the [facility] because of better cardiac care. In the [...] heat intolerance Hematologic/Lymphatic Hematologic/Lymphatic: Denies easy bruising [facility] Medical History (Updated 08/28/24 @ 21:25 by [...] pH 5.5 (5.0-9.0) 08/28/24 14:35 Ur Specific Ridge 1.024 (1.001-1.030) 08/28/24 14:35 Urine Protein 50 [...] By: Lion Shook MD 08/28/242117 Signed By: <Electronically signed by Lion Shook MD> 08/28/242129 [facility] Work Phone: 1(665) 168-456901-18-2025 [place] [address] Hospitalist H&P Signed Patient: Cece Hubbard MR#: [id number] : 1945 Acct:[id number] Age/Sex: 79 / F Adm Date: 5 Loc: Room: [address] [place] [address] Type: ADM IN Attending Dr: Lion Shook [...] on Coumadin and metoprolol recently was in [facility] for atrial fibrillation with RVR. She was managed with beta-ken and was sent home with metoprolol extended release 25 mg/day. Since then patient has not been feeling well she became increasingly tired and noticed that she cannot sleep flat.She was getting short of breath. Her cardiac caths were done in [place] and also at [facility]. This time she felt like coming to the [facility] because of better cardiac care. In the [...] heat intolerance Hematologic/Lymphatic Hematologic/Lymphatic: Denies easy bruising [facility] Medical History (Updated 08/28/24 @ 21:25 by [...] pH 5.5 (5.0-9.0) 08/28/24 14:35 Ur Specific Ridge 1.024 (1.001-1.030) 08/28/24 14:35 Urine Protein 50 [...] Lion Shook MD 08/28/242117 Signed By: 08/28/242129 [facility]01-18-2025 Evaluation note* Diagnosis Onset Date Resolution [...] heart failure deleted August 28, 2024 6:27pm [facility] Work Phone: 1(506) 477-923201-18-2025 Radiology Diagnostic study [facility] [place] [address] CT Scan Report Signed Patient: Cece Hubbard MR#: [id number] : 1945 Acct:[id number] Age/Sex: 79 / F ADM Date: 5 Loc: ER Room: Type: [facility] ER Attending Dr: Copies to: Bernardo [...] Elvin Cantu M.D.08/28/2024 3:28 PM Dictation Location: [facility]- Transcribed By: [facility] 08/28/24 1528 Dictated By: Elvin Cantu MD 08/28/24 1514 Signed By: 08/28/24 1528 [facility] Work Phone: 1(928) 107-642212-06-2024 History of Present illness Narrative* Víctor Wills [...] or angina pectoris and no dyspnea. Assessment/recommendations: 4-dxb-iliazs coronary artery disease status post angioplasty of the LAD in the remote past and angioplasty of the RCA with stenting for 70% stenosis at [facility] November 2023. She stopped taking the Plavix recently for GI symptoms. She was advised to go back on Plavix along with a baby aspirin, continue high intensity statin. Will continue aggressive risk factors modification. 2-left ventricular diastolic dysfunction, presently quiescent, ejection fraction 65% by echocardiogram November 2023 at [facility] 3-moderate mitral regurgitation, annual echocardiogram will be [...] type, unspecified whether angina present, unspecified whether tribe or transplanted heart clopidogrel (Plavix) 75 mg [...] my direction and personally dictated by me. Viave reviewed the chart and agree that the record accurately reflects my personal performance of the history, physical exam, discussion and plan. [facility] Work Phone: 1(979) 471-132212-06-2024 Instructions* Patient Instructions* Alison Segundo LPN - [...] 6 month Lab work [facility] Work Phone: 1(943) 211-420110-30-2024 History of Present illness Narrative* Disha Cheung [...] will consider patch testing to the [place] contact dermatitispanel. documented in this encounterC[id number] History of Present illness Narrative* Stacy Henderson MD - 04/21/2024 1:45 PM EDT Images from the original note were not included. 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 Last DEXA: doesn't want it Last Mammogram: 2018 Last Pap: before 2019 Colonoscopy: 2013 Complaints: Has complaints for vaginal [...] COLONOSCOPY 2014 x 4, IBS/ follow up 2016 DILATION AND CURETTAGE OF UTERUS -miscarriage ENDOMETRIAL BIOPSY 2006 EXCISION 2014 sebaceous cyst neck HM MAMMOGRAPHY 05/12/2019 BIRAD 1 JOINT REPLACEMENT Right 2011 Knee replacement PAP SMEAR 03/19/2011 NILM NV ARTHROSCOPY KNEE DIAGNOSTIC W/WO SYNOVIAL BX SPX Bilateral 2005 NV SPINE/LUMBAR DISK SURGERY 07/28/2017 L3 LT hemilaminotomy, [...] by Stacy Henderson MD documented in this encounterCox [id number] Telephone encounter Note* Telephone Encounter - Disha Cheung MD - 04/07/2024 4:49 PM EDT Left message on machine [id number] Miscellaneous Notes* Telephone Encounter - Disha Cheung MD - 04/07/2024 4:49 PM EDT Left message on machine documented in this encounterCox [id number] History of Present illness Narrative* Disha Cheung [...] dermatitis eye care [facility]ortisone to [facility] [place] We agreed she would apply wet compress to the periocular skin followed by hydrocortisone and then petroleum jelly twice daily when she has having a flare of her condition and twice weekly when she is doing well. Follow- up is arranged on an as needed basis. Vasomotor rhinitis - nasal ipratropium follow-up 2 months or sooner if problems arise. documented in this encounterCox [id number] History of Present illness Narrative* Víctor Wills [...] had angioplasty of the RCA at the [facility]. She had extensive records from recent admission to the [facility] at [facility] and subsequently [facility]. Records were reviewed. She was referred for [...] and had no lower extremity edema. Assessment/recommendations: 3-yak-ndnhhn coronary artery disease status post angioplasty of the LAD in the remote past and angioplasty of the RCA with stenting for 70% stenosis at [facility] November 2023. She is on Plavix and [...] type, unspecified whether angina present, unspecified whether tribe or transplanted heart 3. History of PTCA 4. Hyperlipidemia, unspecified hyperlipidemia type 5. Diastolic dysfunction 6. High risk medication use 7. Mitral valve insufficiency, unspecified etiology 8. Aortic valve insufficiency, etiology of cardiac valve disease unspecified 9. Stage 3 chronic kidney disease, unspecified whether stage 3a or 3b CKD (Multi) 10. BMI 30.0-30.9,adult 11. Former smoker Scribe Attestation By signing my name below, Rosita Calderón LPN , Scribe attest that this [...] exam, discussion and plan. documented in [facility] Work Phone: 1(930) 645-386606-03-2024 Instructions* Patient Instructions* Rosita Harris LPN - [...] Provided instructions on exercise. documented in [facility]Martin [facility] Work Phone: 1(765) 988-650805-14-2024 Instructions* Patient Instructions* Vasyl Covarrubias MD - [...] or a virtual appointment documented [facility] History of Present illness Narrative* Vasyl Covarrubias MD - 12/23/2023 10:21 AM EDT [facility] Progress Note Service date 12/23/2023 IMPRESSION [...] anxiety, back and knee surgeries Card meds [employer]CIAL [employer]UMBER: Eliquis 5 twice daily, amiodarone 100 daily, [...] or >5 lb in 1 week, call antisqueak worker if taking this). (Patient not taking: Reported on 12/23/2023) potassium chloride ER (KLOR-CON) 20 mEq tablet Take 1 tablet by mouth once daily as needed (take only if taking a dose of lasix for weight gain/swelling). (Patient not taking: Reported on 12/23/2023) LOCATION [facility]. Cece presented at this time with [...] Seasonal allergic rhinitis Medications as populated by [employer] without verification by MD: Cardiac medications reviewed [...] 33 minutes in the visit which includes: zies-jx-xeik and abpnvvu-kb-icog time working for this specific patient. All [...] record. Vasyl Covarrubias M.D. documented in this [facility]05-02-2024 NoteHNO ID: [id number] Author: ?, ?, ? Service: ? Author [...] brochure sent Lung Nodule Program Location: [facility]05-02-2024 Note Patient Outreach (PULMMN) CECE HUBBARD ([id number]) 1945 F Date Time Provider Department 12/11/23 [...] and brochure sent Lung Nodule Program Location: [place] Allergies As of Date: 12/11/2023 Noted Allergy [...] or >5 lb in 1 week, call antisqueak worker if taking this). - potassium chloride ER (KLOR-CON) 20 mEq tablet Take 1 tablet by mouth once daily as needed (take only if taking a dose of lasix for weight gain/swelling). 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 Closing statement given Tang Fowler RN [facility]04-30-2024 Miscellaneous Notes* Telephone Encounter - Tang Fowler [...] given Tang Fowler RN documented in this encounterBrown [facility] Hospital04-25-2024 NoteHNO ID: [id number] Author: ?, ?, ? Service: ? Author Type: ? Type: Progress Notes Filed: 12/04/2023 16:06 Note Text: [facility] History of Present illness Narrative* Orly Harrison - 12/04/2023 4:05 PM EDT EKG documented in this encounterBrown [facility]04-25-2024 Telephone encounter Note * Telephone Encounter - [...] and date of . Lui Sanchez RN [facility]04-25-2024 Miscellaneous Notes* Telephone Encounter - Lui Sanchez [...] . Lui Sanchez RN documented in this encounterBrown [facility] Hospital04-25-2024 NotePatient Outreach (PHRXRF) CECE HUBBARD ([id number]) 1945 F Date Time Provider Department 12/04/23 BARRY WHITING PHRXRF During your visit today, we recorded the following information about you: [facility]23 3:22 PM Signed TRANSITION CARE MANAGEMENT [...] oz) Patient was sent a message via [employer] including the link to the [facility] Heart Failure education video: Yes Initial contact with patient post discharge, spoke to patient, and verified that any applicable caregiver is active in patient's medical care. Patient identified by name and . Summary: -Pt discharged from [facility] on 12/03/23. -Medication review done Full medication review completed Patient Concerns: Review and discussion of medications with patient as outlined in medication table below. Source of medication information obtained from Medication list. Dispense records from pharmacy also utilized to obtain additional medication fill history. Pt filled via [facility] bedside delivery pharmacy team prior to discharge. Patient doesn't live near [facility] - reviewed RX transfer process as majority of meds filled bedside had refills left on them. Reviewed f/u appt orders placed for cardio and nephro- pt would like to continue seeing [facility] cardio provider and will await call to [...] metabolic panel checked in 1 week [facility] with follow up appointment (order is [...] potassium 20 mEq pill and call your antisqueak worker to tell them there is concern for fluid build up. Take these if you notice lower extremity swelling and call a antisqueak worker. No other significant medication changes, see medication reconciliation page. Please be sure to get scheduled with cardiac rehab. Follow up - placing a referral for follow up at [place]. You should be seen by an [employer] HELPER with general cardiology for follow up in 1 week and staff physician in 1 month Other Problem(s)/Diagnosis: Principal Problem: NSTEMI (non-ST elevated myocardial infarction) (HCC) Active Problems: Nonrheumatic aortic valve insufficiency Pre-op exam Anticoagulation management encounter Dyspnea on exertion (more content not included)...[facility] 12-04-2023 Miscellaneous Notes* Telephone Encounter - Lui Sanchez RN - 12/04/2023 11:43 AM EDT [place] [employer] nurse called patient for follow up from recent hospital discharge, but no answer. Left message on voicemail including 03/03 resource nurse phone number. Lui Sanchez RN documented in this encounterBrown [facility] Hospital04-25-2024 Telephone encounter Note * Telephone Encounter - Lui Sanchez RN - 12/04/2023 11:43 AM EDT [place] [employer] nurse called patient for follow up from recent hospital discharge, but no answer. Left message on voicemail including 24/7 resource nurse phone number. Lui Sanchez, RN [facility]04-25-2024 NoteHNO ID: [id number] Author: BARRY WHITING [facility] Service: ? Author Type: Pharmacist Type: Progress [...] oz) Patient was sent a message via [employer] including the link to the [facility] Heart Failure education video: Yes Initial contact with patient post discharge, spoke to patient, and verified that any applicable caregiver is active in patient's medical care. Patient identified by name and . Summary: -Pt discharged from [facility] on 12/03/23. -Medication review done Full medication review completed Patient Concerns: Review and discussion of medications with patient as outlined in medication table below. Source of medication information obtained from Medication list. Dispense records from pharmacy also utilized to obtain additional medication fill history. Pt filled via [facility] bedside delivery pharmacy team prior to discharge. Patient doesn't live near [facility] - reviewed RX transfer process as majority of meds filled bedside had refills left on them. Reviewed f/u appt orders placed for cardio and nephro- pt would like to continue seeing [place] cardio provider and will await call to [...] metabolic panel checked in 1 week at [facility] lab with follow up appointment (order is [...] potassium 20 mEq pill and call your antisqueak worker to tell them there is concern for fluid build up. Take these if you notice lower extremity swelling and call a antisqueak worker. No other significant medication changes, see medication reconciliation page. Please be sure to get scheduled with cardiac rehab. Follow up - placing a referral for follow up at [place]. You should be seen by an [employer] HELPER with general cardiology for follow up in [...] coronary artery Medication Rec (more content not included)...[facility] 12-04-2023 History of Present illness Narrative* Barry Whiting, [facility] - 12/04/2023 9:17 AM EDT TRANSITION CARE [...] oz) Patient was sent a message via [employer] including the link to the [facility] Heart Failure education video: Yes Initial contact with patient post discharge, spoke to patient, and verified that any applicable caregiver is active in patient's medical care. Patient identified by name and . Summary: -Pt discharged from [facility] on 12/03/23. -Medication review done Full medication review completed Patient Concerns: Review and discussion of medications with patient as outlined in medication table below. Source of medication information obtained from Medication list. Dispense records from pharmacy also utilized to obtain additional medication fill history. Pt filled via [facility] bedside delivery pharmacy team prior to discharge. Patient doesn't live near [facility] - reviewed RX transfer process as majority of meds filled bedside had refills left on them. Reviewed f/u appt orders placed for cardio and nephro- pt would like to continue seeing [facility] cardio provider and will await call to [...] metabolic panel checked in 1 week at [facility] lab with follow up appointment (order is [...] potassium 20 mEq pill and call your antisqueak worker to tell them there is concern for fluid build up. Take these if you notice lower extremity swelling and call a antisqueak worker. No other significant medication changes, see medication reconciliation page. Please be sure to get scheduled with cardiac rehab. Follow up - placing a referral for follow up at [place]. You should be seen by an [employer] HELPER with general cardiology for follow up in [...] a half tablet by mouth once daily. superintendent circus these medications at [facility] Refill issued at discharge, med order unchanged from [facility] on pharmacy dispense records with recent fill hx Patient reportedly taking as prescribed without any issues Discontinued: 12/03/2023 1:16 PM [employer] entry apixaban (ELIQUIS) 5 mg tab(s) Take 1 tablet by mouth two times a day. superintendent circus these medications [facility] Refill issued at discharge, med order unchanged from [employer] on pharmacy dispense records with recent fill hx Patient reportedly taking as prescribed without any issues Reviewed Discontinued: 12/03/2023 1:16 PM D/c [employer] Replaced by: aspirin 81 mg chewable tablet Reviewed d/c aspirin 81 mg chewable tablet Take 1 tablet by mouth once daily for 6 doses. Patient should start on December 04, 2023. superintendent circus these medications at [facility] on pharmacy dispense records with recent fill hx Patient reportedly taking as prescribed without any issues Reviewed 6 doses only atorvastatin (LIPITOR) 40 mg tablet Take 1 tablet by mouth once daily. superintendent circus these medications [facility] Refill issued at discharge, med order unchanged from [employer] on pharmacy dispense records with recent fill hx Patient reportedly taking as prescribed without any issues clopidogrel (PLAVIX) 75 mg tablet Take 1 tablet by mouth once daily. superintendent circus these medications at [facility] on pharmacy dispense records with recent fill hx Patient reportedly taking as prescribed without any issues Discontinued: 12/03/2023 1:16 PM COMM[employer]CIAL [employer]UMBER dose escitalopram oxalate (LEXAPRO) 10 mg tablet Take 1 tablet by mouth once daily. superintendent circus these medications at [facility] on pharmacy dispense records with recent fill hx Patient reportedly taking as prescribed without any issues Reviewed Discontinued: 12/03/2023 1:16 PM [employer]BER dose furosemide (LASIX) 40 mg tablet Take 1 tablet by mouth once daily as needed (for >2lb weight gain in 1 day or >5 lb in 1 week, call antisqueak worker if taking this). superintendent circus these medications at [facility] on pharmacy dispense records with recent fill hx Reviewed change Has scale - confirmed hydrALAZINE (APRESOLINE) 25 mg tablet Take 1 tablet by mouth two times a day. superintendent circus these medications at [facility] Refill issued at discharge, med order unchanged from [employer] on pharmacy dispense records with recent fill hx Patient reportedly taking as prescribed without any issues Discontinued: 12/03/2023 1:16 PM [employer]CIAL [employer] entry isosorbide mononitrate ER (IMDUR) 30 mg 24 hr tablet Take 1 tablet by mouth once daily. superintendent circus these medications at [facility] on pharmacy dispense records with recent fill hx Patient reportedly taking as prescribed without any issues Reviewed change Discontinued: 12/03/2023 1:16 PM D/c [employer] Reviewed d/c Discontinued: 12/03/2023 1:16 PM [employer] dose liothyronine (CYTOMEL) 5 mcg tablet Take 1 tablet by mouth daily before breakfast. superintendent circus these medications at [facility] on pharmacy dispense records with recent fill hx TSH (mIU/L) Date Value 10/26/2023 4.790 ) Patient reportedly taking as prescribed without any issues Reviewed change Discontinued: 12/03/2023 1:16 PM D/c [employer]BER Reviewed d/c pantoprazole DR (PROTONIX) 40 mg tablet Take 1 tablet by mouth once daily. superintendent circus these medications at [facility] Refill issued at discharge, med order unchanged from [employer] on pharmacy dispense records with recent fill hx Patient reportedly taking as prescribed without any issues 30 min before a meal potassium chloride ER (KLOR-CON) 20 mEq tablet Take 1 tablet by mouth once daily as needed (take only if taking a dose of lasix for weight gain/swelling). superintendent circus these medications at [facility] on pharmacy dispense records with recent fill hx Prn Reviewed med - change from 8mEq- reviewed using with lasix/furosemide only Discontinued: 12/03/2023 1:16 PM D/c [employer] Replaced by: KLOR-CON M20 20 mEq tablet Reviewed d/c Discontinued: 12/03/2023 1:16 PM D/c COMMERCIAL [employer]UMBER Reviewed d/c Discontinued: 12/03/2023 1:16 PM D/c COMMERCIAL PLUMBER Preferred pharmacy: e- [facility]/pharmacy [address] [id number] - [address] [facility] [phone] [place] [address] [address] [facility] [address] [facility] [address] [place] [id number] Estimated Creatinine Clearance: 26 mL/min (A) (based on SCr of 1.83 mg/dL (H)). eGFR, (no units) Date Value 05/28/2012 >60 Estimated Glomerular Filtration Rate (mL/min/1.73m ) Date Value 12/03/2023 28 (L) eGFR- (no units) Date Value 06/20/2016 >60 Additional follow up: Next 5 Appointments None Interventions Made: Patient education/Medication counseling and Adherence counseling Pharmacist Recommendations Made None Care Coordination: [employer] message sent to patient Time spent on patient: 45-60 minutes BARRY WHITING, PHARMACIST, [facility] Transitional Care Management (F-R [id number]) December 04, 2023 3:22 PM documented in this encounterBrown [facility] Hospital04-24-2024 NoteHNO ID: [id number] Author: ADRIANA MAHAN ? Service: Pharmacy Author Type: Bpm Analyst Type: Plan of Care Filed: 12/03/2023 15:48 Note Text: PHARMACY BEDSIDE DELIVERY SERVICE Patient Name: Cece Hubbard The marked outpatient medications were [facility] and delivered to the patient's [...] or >5 lb in 1 week, call antisqueak worker if taking this). What changed: medication strength [...] traMADol 50 mg tablet Commonly known as: ULTRAJaylyn Adriana Mahan PAGER: [phone] December 03, 2023 2:56 [facility]04-24-2024 NoteHNO ID: [id number] Author: NORMA RUSSELL RN Service: Care Management [...] Physician Primary Care Physician Name/Phone: Demarco Newell MD/[phone] SIGNATURE: Norma Russell RN PATIENT NAME: Cece Hubbard DATE: December 03, 2023 TIME: 2:16 PM CONTACT #: [phone] Healthcare [facility]04-24-2024 Note HNO ID: [id number] Author: LIANE BUCKLEY MD Service: Cardiovascular Medicine Author Type: Physician Type: Progress Notes Filed: 12/03/2023 13:12 Note Text: Cece Hubbard [id number] PRIMARY SERVICE: Cardiology Imaging 78 year old [...] for details. DIAGNOSTICS REVIEWED CBC: Recent Labs 12/03/23 04212/02/2342712/01/23 0727 11/30/2354711/29/2345111/28/2344311/27/23 0433 WBC 6.44 5.45 4.96 4.99 5.21 5.03 5.15 HB 13.4 14.6 14.2 13.4 12.5 12.1 11.6 HCT 40.6 43.3 42.2 39.7 38.3 37.0 35.3* PLT 166 181 184 179 177 157 155 MCV 94.6 94.5 94.8 94.3 95.0 96.1 95.4 RDWCV 14.6 14.6 14.6 14.6 14.6 14.5 14.3 BMP: Recent Labs 12/03/23 04212/02/23 04212/01/23 0726 11/30/23 0548 11/29/23 0452 11/28/23 0444 11/27/23 0433 GLUC 105* 117* 110* 98 97 [...] 1.80* 1.75* 1.87* 1.78* CHEM: Recent Labs 12/03/23 0420 12/02/23 0428 12/01/23 [...] the prior echocardiographic exam performed on 10/28/2023 ([facility]). AR and MR (more content not included)...[facility]04-23-2024 NoteHNO ID: [id number] Author: SONG TYLER MD Service: Cardiovascular Medicine [...] me with questions. David Falcon MD Interventional Patient Monitor Pager [phone] December 02, 2023 8:23 [facility]04-23-2024 NoteHNO ID: [id number] Author: LISSY PARKER RN Service: ? Author Type: Registered Nurse Type: Progress Notes Filed: 12/02/2023 13:04 Note Text: QOL Call Tracking Documentation Follow-Up Type: Phone Call Call Attempt: 1st Attempt Call Status: Unable to contact patient (Cell phone was answered by patient's daughter who acknowledged that patient is inpatient at [facility] currently and does not have access to MyChart.)[facility]04-23-2024 NoteHNO ID: [id number] Author: FAVIAN JANE APRN.CNP Service: ? Author Type: Nurse Practitioner Type: Progress Notes Filed: 12/02/2023 12:30 Note Text: Incidental Lung Nodule Enrollment Outreach attempt: 1st Attempt Outreach status: Complete Enrolled in Lung Nodule program: Referred Lung Nodule outreach: No outreach - Very small nodule, letter and brochure sent Lung Nodule Program Location: [place] Favian Jane APRN.CNPAcmc Healthcare System [facility]04-23-2024 NotePatient Outreach (PULMMN) CECE HUBBARD ([id number]) 1945 F Date Time Provider Department 12/02/23 FAVIAN JANE During your visit today, we recorded the following information about you: Favian Jane APRN.CNP 12/02/2023 12:30 PM Signed Incidental Lung Nodule Enrollment Outreach attempt: 1st Attempt Outreach status: Complete Enrolled in Lung Nodule program: Referred Lung Nodule outreach: No outreach - Very small nodule, letter and brochure sent Lung Nodule Program Location: [place] Favian Jane APRN.CNP Allergies As of Date: 12/02/2023 Noted Allergy Reaction SERINA INHIBITORS 04/28/2012 2 - Rash 4 - Hives AMLODIPINE 04/24/2022 7 - Swelling CODEINE 04/28/2012 11 - Vomiting DILAUDID (HYDROMORPHONE (BULK)) 05/12/2012 11 - Vomiting MEPERIDINE 07/28/2017 11 - Vomiting MORPHINE 10/26/2023 11 - Vomiting NEURONTIN (GABAPENTIN) 10/26/2023 1 - Mental Status Change Date Reviewed: 12/02/2023 Reviewed by: Debra Spencer RN - Fully Assessed Primary Visit Diagnosis:Lung [...] Text Encounter Status:Closed by FAVIAN JANE on 12/02/23[facility] 12-02-2023 NotePatient Outreach (TOHSMN) CECE HUBBARD ([id number]) 1945 F Date Time Provider Department 12/02/23 LISSY PARKER [facility] During your visit today, we recorded the following information about you: Lissy Parker RN 12/02/2023 1:04 PM Signed QOL Call Tracking Documentation Follow-Up Type: Phone Call Call Attempt: 1st Attempt Call Status: Unable to contact patient (Cell phone was answered by patient's daughter who acknowledged that patient is inpatient at [facility] currently and does not have access to [employer].) Allergies As of Date: 12/02/2023 Noted Allergy Reaction SERINA INHIBITORS 04/28/2012 2 - Rash 4 - Hives AMLODIPINE 04/24/2022 7 - Swelling CODEINE 04/28/2012 11 - Vomiting DILAUDID (HYDROMORPHONE (BULK)) 05/12/2012 11 - Vomiting MEPERIDINE 07/28/2017 11 - Vomiting MORPHINE 10/26/2023 11 - Vomiting NEURONTIN (GABAPENTIN) 10/26/2023 1 - Mental Status Change Date Reviewed: 12/02/2023 Reviewed by: Debra Spencer, VIKTOR - Fully Assessed Prescriptions as of 12/02/2023 [...] 11/26/2023 Encounter Status:Closed by LISSY PARKER on 12/02/23[facility]04-[facility]24 NoteHNO ID: [id number] Author: NORMA RUSSELL RN Service: Care Management [...] 02, 2023 TIME: 11:54 AM PAGER/CONTACT #: [phone] Healthcare [facility]04-23-2024 History of Present illness Narrative* Lissy Parker RN - 12/02/2023 1:01 PM EDT QOL Call Tracking Documentation Follow-Up Type: Phone Call Call Attempt: 1st Attempt Call Status: Unable to contact patient (Cell phone was answered by patient's daughter who acknowledged that patient is inpatient at [facility] currently and does not have access to [employer].) documented in this encounterBrown Memorial Hospital04-23-2024 History of Present illness Narrative* Favian Jane APRN.CNP - 12/02/2023 12:28 PM EDT Incidental Lung Nodule Enrollment Outreach attempt: 1st Attempt Outreach status: Complete Enrolled in Lung Nodule program: Referred Lung Nodule outreach: No outreach - Very small nodule, letter and brochure sent Lung Nodule Program Location: [place] Favian Jane APRN.CNP documented in this encounterBrown Memorial Hospital04-23-2024 NoteHNO ID: [id number] Author: LIANE BUCKLEY MD Service: Cardiovascular Medicine Author Type: Physician Type: Progress Notes Filed: 12/02/2023 17:39 Note Text: Cece Hubbard [id number] PRIMARY SERVICE: Cardiology Imaging 78 year old female with history of HTN, CAD status post PCI to LAD and RCA 2020, HFpEF, MR, AR hypothyroidism who presented to OSH with worsening dyspnea on on exertion. INTERVAL HISTORY: - NAEO - Vitals stable on room air - no indication for OHS - LHC with Dr. Tyler for PCI of RCA [...] for details. DIAGNOSTICS REVIEWED CBC: Recent Labs 12/02/23 0428 12/01/23 0727 11/30/23 0548 11/29/23 0452 11/28/23 0444 [...] -- -- -- 2.2 BMP: Recent Labs 12/02/2342712/01/2372511/30/2354711/29/2345111/28/2344311/27/2343211/26/23 0525 11/26/23 0021 GLUC 117* 110* 98 [...] 1.87* 1.78* 1.62* 1.75* CHEM: Recent Labs 12/02/2342712/01/2372511/30/2354711/29/2345111/28/2344311/27/2343211/26/23 0525 11/26/23 0021 ALB 4.4 4.7 4.4 4.3 4.0 4.0 3.7* 5.2* TPROT 7.5 7.7 7.2 7.1 6.5 6.4 6.0* 6.5 CA 10.6* 10.6* 10.4* 10.3* 10.0 9.6 9.4 9.8 MG 2.3 2.3 2.2 2.1 2.2 2.2 2.2 2.2 HEPATIC: Recent Labs 12/02/2342712/01/2372511/30/2354711/29/2345111/28/2344311/27/2343211/26/23 0511/26/23 0021 ALKPHOS 107 103 95 91 89 88 85 94 ALT 30 32 28 19 10 9 10 10 AST 23 32 33 23 12* 12* 12* 13 TBILI 0.8 1.0 0.8 0.7 0.5 0.6 0.8 0.7 TROPONIN: Recent Labs 11/26/23 0021 PBNP 177 COAG: Recent Labs 12/02/23 0428 12/01/23 2059 12/01/23 1439 12/01/23 [...] Left ventricular systolic function (more content not included)...[facility]04-22-2024 NoteHNO ID: [id number] Author: NORMA RUSSELL RN Service: Care Management Author Type: Registered Nurse Type: Care Mgt Progress Note Filed: 12/01/2023 12:29 Note Text: CARE MANAGEMENT PROGRESS NOTE SERVICE DATE: 12/01/2023 SERVICE TIME: 12:24 PM LOS: 6 days Needs Prior to Discharge: Procedure Per CTS, no surgical indication for MV intervention based on echo findings. Plan for LHC with PCI of RCA (ISR) today or tomorrow. No skilled needs identified. SIGNATURE: Norma Russell RN PATIENT NAME: Cece Hubbard DATE: December 01, 2023 TIME: 12:24 PM PAGER/CONTACT #: [phone] Healthcare [facility]04-22-2024 NoteHNO ID: [id number] Author: LIANE BUCKLEY MD Service: Cardiovascular Medicine Author Type: Physician Type: Progress Notes Filed: 12/01/2023 15:09 Note Text: Cece Hubbard [id number] PRIMARY SERVICE: Cardiology Imaging 78 year old [...] 2.2 -- 0.9 BMP: Recent Labs 11/30/23 0548 11/29/232 11/28/2344311/27/2343211/26/23 0525 11/26/23 0021 11/25/23 0706 11/24/23 1247 GLUC 98 97 106* [...] 1.67* 1.57* CHEM: Recent Labs 11/30/23 0548 11/29/23 0452 11/28/234 11/27/23 0433 11/26/23 0525 11/26/23 0021 11/25/23 0706 11/24/23 1247 ALB 4.4 4.3 4.0 [...] There is left ventricu (more content not included)...[facility]04-21-2024 NoteHNO ID: [id number] Author: JOEL PARRISH MD Service: Cardiovascular Medicine Author Type: Physician Type: Progress Notes Filed: 11/30/2023 13:03 Note Text: Cece Hubbard [id number] PRIMARY SERVICE: Cardiology Imaging 78 year old female with history of HTN, CAD status post PCI to LAD and RCA 2020, HFpEF, MR, AR hypothyroidism who presented to OSH with worsening dyspnea on on exertion. INTERVAL HISTORY: - NAEO - Vitals stable on room air - no indication for OHS - likely LHC tomorrow with Dr. Tyler for PCI of [...] -- 2.2 -- 0.9 BMP: Recent Labs 11/29/2345111/28/2344311/27/2343211/26/2352411/26/23 00211/25/23 0706 11/24/23 1247 GLUC 97 106* [...] 2.2 2.2 -- 2.1 HEPATIC: Recent Labs 11/29/23 0452 11/28/23 0444 11/27/23 0433 11/26/23 0525 11/26/23 0021 11/24/23 1247 ALKPHOS 91 [...] the prior echocardiographic exam performed on 10/28/2023 ([facility]). AR and MR appear less (more content not included)...[facility]04-20-2024 NoteHNO ID: [id number] Author: JOEL PARRISH MD Service: Cardiovascular Medicine Author Type: Physician Type: Progress Notes Filed: 11/29/2023 15:25 Note Text: Cece Hubbard [id number] PRIMARY SERVICE: Cardiology Imaging 78 year old [...] -- 2.2 -- 0.9 BMP: Recent Labs 11/28/2344311/27/2343211/26/2352411/26/232011/25/23 0711/24/23 1247 GLUC 106* 109* 100* 97 [...] 2.2 2.2 -- 2.1 HEPATIC: Recent Labs 11/28/2344311/27/2343211/26/2352411/26/232011/24/23 1247 ALKPHOS 89 88 85 94 103 [...] the prior echocardiographic exam performed on 10/28/2023 ([facility]). AR and MR appear less severe on the current study. Elec (more content not included)...[facility]04-19-2024 NoteHNO ID: [id number] Author: ELIO COLES RN Service: Care Management Author Type: Registered Nurse Type: Care Mgt Initial Assessment Filed: 11/28/2023 14:10 Note Text: CARE MANAGEMENT: ASSESSMENT AND DISCHARGE PLAN SERVICE DATE: November 28, 2023 SERVICE TIME: 2:06 PM PCP: Demarco Newell MD Primary Contact: Extended Emergency Contact Information Primary Emergency Contact: Elio Hubbard Address: [address] [place] [address] Relation: Spouse Secondary Emergency Contact: BARRY CHURCH Mobile Relation: Daughter Admission Status: Inpatient Insurance Provider: MEDICARE A AND B Discharge Planning requested by: Per Department Practice Potential Transition Plans Home;To Be Determined Advance Directives Current Advance Directive: Health Care Power of Airplane Technician In Chart: Yes Up To Date [...] Be able to go home, General wellness [place] Explained: [place] of [place] Given: No Reason Not Given: [...] Discharge Plan: 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 Lives with spouse, residence is a ranch [...] 28, 2023 TIME: 2:06 PM CONTACT #: [phone] Healthcare System Glen[facility]igh04-19-2024 Note HNO ID: [id number] Author: RICHA FERNANDO RRT Service: ? Author Type: Registered Resp Therapist Type: Progress Notes Filed: 11/28/2023 11:06 Note Text: PULM FUNCTION SMARTBLOCK: Provider: Gaetano Shaw MD Spirometry: 1 DLCO: 1 System: [employer] - [id number] Healthcare [facility]04-19-2024 History of Present illness Narrative* Richa Fernando, UNDERWRITING DIRECTOR - 11/28/2023 11:04 AM EDT PULM FUNCTION SMARTBLOCK: Provider: Gaetano Shaw MD Spirometry: 1 DLCO: 1 System: [employer] - [id number] documented in this encounterBrown Memorial Hospital04-19-2024 NoteHNO ID: [id number] Author: JOEL PARRISH MD Service: Cardiovascular Medicine Author Type: Physician Type: Progress Notes Filed: 11/28/2023 14:33 Note Text: Cece Wilson Stevie [id number] PRIMARY SERVICE: Cardiology Imaging 78 year old [...] for details. DIAGNOSTICS REVIEWED CBC: Recent Labs 11/28/2344311/27/2343211/26/2352411/26/232011/25/23 0711/24/23 1247 WBC 5.03 5.15 4.44 5.52 [...] -- 2.2 -- 0.9 BMP: Recent Labs 11/28/2344311/27/2343211/26/2352411/26/232011/25/2370511/24/23 1247 GLUC 106* 109* 100* 97 108* 97 NA 140 139 139 139 137 139 K 4.5 3.9 4.0 3.9 4.4 4.2 CHLOR 102 101 105 100 102 100 CO2 26 25 23 23 23 27 ANION 12 13 11 16 12 12 BUN 30* 22* 20 20 18 16 CREAT 1.87* 1.78* 1.62* 1.75* 1.67* 1.57* CHEM: Recent Labs 11/28/2344311/27/2343211/26/2311/25/24 0021 11/25/23 0706 11/24/23 1247 ALB 4.0 4.0 3.7* [...] (3+) mitral valve regurgi (more content not included)...[facility]04-18-2024 NoteHNO ID: [id number] Author: ALYSE CHIU Tech Service: ? Author [...] PATIENT PRESENTS WITH AN IMPLANTABLE OR ATTACHED WEB OPERATIONS SPECIALIST: No RADIOLOGY DEPARTMENT: CT; Exam(s) Completed: Cardiac PERIPHERAL IV DATA: Not applicable SIGNED BY: Everett Palacios November 27, 2023 8:36 [facility]04-18-2024 NoteHNO ID: [id number] Author: JOEL PARRISH MD Service: Cardiovascular Medicine Author Type: Physician Type: Progress Notes Filed: 11/27/2023 15:05 Note Text: Cece Hubbard [id number] PRIMARY SERVICE: Cardiology Imaging 78 year old [...] 1.62* 1.75* 1.67* 1.57* CHEM: Recent Labs 11/27/23 0433 11/26/23 0525 11/26/23 0021 11/25/23 0706 11/24/23 1247 ALB 4.0 3.7* 5.2* -- 4.4 [...] Final * * * (more content not included)...[facility]04-17-2024 NoteHNO ID: [id number] Author: MODE SCHOFIELD CPhT Service: Pharmacy Author Type: Bpm Analyst Type: Plan of Care Filed: 11/26/2023 09:52 [...] 2 Any questions, [place] [phone]. Thank you (Prices may vary at different pharmacy locations, this is the cost at [facility]) Mode Schofield CPhT Medication Director Packaging [id number] Healthcare System [facility]04-17-2024 NoteHNO ID: [id number] Author: MODE SCHOFIELD CPhT Service: Pharmacy Author Type: Bpm Analyst Type: Plan of Care Filed: 11/26/2023 09:50 Note Text: Insurance investigation completed Patient has active prescription insurance: Yes - Patient's insurance is in-network with [facility] Insurance loaded into [employer]: Yes Test claim was completed to verify insurance is active: Successful Any questions, please contact your medication records management coordinator. Pager #: [phone] Mode Schofield CPhT Medication Director Packaging [phone] Healthcare System [facility]04-02-2024 Miscellaneous Notes* Telephone Encounter - Jadyn Storey RN - 11/11/2023 12:35 PM EDT Cards H&P-preop studies-CT chest wo-Carotid US-vein mapping-PFTs 12/03/23, [facility]- Dr. Shaw consult1 pm 12/03, OHS 12/05/23 Mrs. Hubbard called back saying she is able to be seen in [place] [facility] tomorrow, so she would like to [...] Correct birthday/include all images/moving if outside cath [facility] 10/31/23 Redo OHS/Robotic surgery/radiation to chest [...] Shaw for his review/plan of care. Cece Wilson Stevie [id number] 78 year old Diagnosis: 3+ mod severe [...] to Gaetano Shaw MD by Vasyl Covarrubias [id number] Nicole Perez [facility] [id number] Patient diagnosis/Reason for consult: MVR Referral triage process explained: N/A Patient will receive a call from Cardiac NPM after triage review with surgeon to discuss any additional testing and/or consults that will be scheduled. Pt will then receive a call from our scheduling office for scheduling. Please call pt at [phone]. Patient Registration: Registration complete/updated: yes Insurance card(s) scanned in [employer] with in the past year: Yes: Date: 10/26/2023 Pt's [employer] is active. Ok to communicate to pt via [employer] not asked Medical Records: Records in Epic (internal [facility] records): Yes Imaging in Epic (internal [facility] records): Yes Additional providers added to Care Teams: Yes Additional Notes/Comments: Enct routed to: Yes, Cardiac NPM for triage Karis Prado documented in this encounterBrown Memorial Hospital04-01-2024 Hospital Discharge instructions Patient Education 11/10/2023 00:34:31 Community-Acquired Pneumonia, Adult, Clhr-hb-Tlkl Community-Acquired Pneumonia, Adult Pneumonia is an infection [...] Follow these instructions at home: Medicines Take oksr-pur-luiusak and prescription medicines only as told by [...] cannot use soap and water, use hand patient scheduling coordinator. Contact a doctor if: You have a [...] provider. Document Revised: 09/25/2022 Document Reviewed: 09/25/2022 [place] Patient Education 2022 [employer]. Follow Up Care 11/09/2023 20:48:58 With:Demarco Newell Address: [address] [place], [place] [address] [facility] (1) When:11/12/2023 Comments:Follow-up with your primary care provider in 3 to 5 days. If symptoms worsen, do not improve, or new symptoms arise please report back to emergency department for further evaluation. [facility]03-31-2024 Evaluation + Plan noteExtracted from: Title:ED Note [...] Level PT & PTT Rapid COVID Antigen ([facility]) Troponin 0 Hr. Troponin 3 Hr. Troponin 6 Hr. Troponin 9 Hr. UA with Cult Rflx XR Chest Single View [facility]03-27-2024 NoteHNO ID: [id number] Author: YAS HOLLEY LSW Service: Care Management Author Type: Spiritual Counselor Type: Care Mgt Initial Assessment Filed: 11/05/2023 13:22 Note Text: CARE MANAGEMENT: ASSESSMENT AND DISCHARGE PLAN SERVICE DATE: November 05, 2023 SERVICE TIME: 1:18 PM PCP: Demarco Newell MD Primary Contact: Extended Emergency Contact Information Primary Emergency Contact: Elio Hubbard Address: [address] [place] [address] [place] [address] Relation: Spouse Secondary Emergency Contact: BARRY CHURCH Mobile Relation: Daughter Admission Status: Observation Insurance Provider: MEDICARE A AND B Discharge Planning requested by: Per Department Practice Potential Transition Plans Home Advance Directives Current Advance Directive: Health Care Power of Airplane Technician In Chart: Yes Up To Date [...] Be able to go home, General wellness [place] of [place] Explained: [place] of Choice Given: No Reason Not Given: [...] Care Planning HCPOA paperwok on file within [facility] and verified to be current as of date/time of this note: Yes. Patient reports HCPOA is correct and in EPIC. Legal Next of Kin Hierarchy per [place] Revised Code: Court-appointed Guardian Healthcare Power of Dfolnwgi-ttwanw-Idqmvvw Nestor [phone] and dtr-Chelsea Church as 1st alt HCPOA [phone] Legal Spouse-Elio Hubbard [phone] Majority of Adult Children (consensus if possible) [...] 05, 2023 TIME: 1:18 PM CONTACT #: [phone] [id number] NoteHNO ID: [id number] Author: MINA GODOY MD Service: General Surgery Author Type: Resident Type: Plan of Care Filed: 11/04/2023 21:51 Note Text: Received call from ED regarding Ms. Hubbard who is s/p RHC/C c/b R femoral hematoma. Patient now with [...] Dr. Lorraine Godoy MD Vascular surgery Nights/Consult: [phone] [id number] NoteHNO ID: [id number] Author: ATA TOSCANO MD Service: General Internal [...] tab(s) 81 mg ORAL DAILY Given, 11/01 93810/27/23 0106 -- 10/27/23 0100 apixaban 5 mg tab(s) (ELIQUIS) 5 mg ORAL EVERY 12 HOURS Given, 11/01 93810/27/23 0037 -- VTE Prophylaxis: VTE prophylaxis appropriate SIGNATURE: Ata Toscano MD PATIENT NAME: Cece Hubbard DATE: November 02, 2023 TIME: 1:50 PM [facility]AG[facility]CONTACT [facility] [id number] NoteHNO ID: [id number] Author: ATA TOSCANO MD Service: General Internal [...] November 01, 2023 TIME: 2:40 PM PAGER/CONTACT #:[facility] [id number] NoteHNO ID: [id number] Author: ATA TOSCANO MD Service: General Internal [...] tab(s) 81 mg ORAL DAILY Given, 10/30 0932 10/27/23 0106 -- 10/27/23 0100 apixaban 5 mg tab(s) (ELIQUIS) 5 mg ORAL EVERY 12 HOURS Given, 10/30 93010/27/23 0037 -- VTE Prophylaxis: VTE prophylaxis appropriate SIGNATURE: Ata Toscano MD PATIENT NAME: Cece Hubbard DATE: October 31, 2023 TIME: 5:03 PM PAGER/CONTACT #:[facility] [phone] Miscellaneous Notes* Telephone Encounter - Rayo Gonzalez - 10/31/2023 4:30 PM EDT IN * Telephone Encounter - Karis Ware - 10/31/2023 4:17 PM EDT Please advise whether the patient's insurance is in network Thank you! documented in this encounterBrown Memorial Hospital03-22-2024 NoteHNO ID: [id number] Author: ABILIO ALLRED APRN.CNP Service: General Internal [...] Of note, she follows with cardiology in [place] but has been seeking care at [facility] for symptomatic MR and evaluation for MVR [...] awaiting results. Request made for OSH Echo ([facility]) for Cardiology to evaluate. Losartan on hold [...] by cardiology and the attending. Abilio Allred APRN.[facility]03-22-2024 NoteHNO ID: [id number] Author: ATA TOSCANO MD Service: General Internal [...] tab(s) 81 mg ORAL DAILY Given, 10/29 0840 10/27/23 0106 -- 10/27/23 0100 apixaban 5 mg tab(s) (ELIQUIS) 5 mg ORAL EVERY 12 HOURS Given, 10/29 202810/27/23 0037 -- VTE Prophylaxis: VTE prophylaxis appropriate SIGNATURE: Ata Toscano MD PATIENT NAME: Cece Hubbard DATE: October 30, 2023 TIME: 10:23 PM PAGER/CONTACT #:[facility] [phone] NoteHNO ID: [id number] Author: ABILIO ALLRED APRN.CNP Service: General Internal Medicine Author Type: Nurse Practitioner Type: Plan of Care Filed: 10/30/2023 22:02 Note Text: INTERNAL MEDICINE PLAN OF CARE SERVICE DATE: 10/30/2023 SERVICE TIME: 1530 ADMITTING PHYSICIAN: Ata Toscano MD Subjective CHIEF COMPLAINT: Some shortness of breath NIGHT AND WEEKEND COVERAGE: [employer] COVERAGE: [employer] PAGER [phone] INTERVAL HISTORY OF PRESENT ILLNESS: Pt seen [...] Of note, she follows with cardiology in [place] but has been seeking care at [facility] for symptomatic MR and evaluation for MVR [...] awaiting results. Request made for OSH Echo ([place]) for Cardiology to evaluate. Losartan on hold [...] which included preparing to see the patient, rdqa-xu-kfsu patient care, completing clinical documentation, obtaining and/or reviewing separately obtained history, performing a medically appropriate examination, counseling and educating the patient/family/caregiver, ordering medications, tests, or procedures, communicating with other HCPs (not separately reported), independently interpreting results (not separately reported), commu (more content not included)...[facility] HospitalIwdfwlno81-33-1412 NoteHNO ID: [id number] Author: CHELSEA DIAZ RN Service: Care Management Author Type: Registered Nurse Type: Care Mgt Progress Note Filed: 10/30/2023 14:04 Note Text: CARE MANAGEMENT PROGRESS NOTE SERVICE DATE: 10/30/2023 SERVICE TIME: 2:04 PM LOS: 3 days Current Advance Directive: Health Care Power of Airplane Technician (HPOA updated/completed today, scanned to AD fax line) In Chart: No SIGNATURE: Chelsea Diaz RN PATIENT NAME: Cece Hubbard DATE: October 30, 2023 TIME: 2:04 PM PAGER/CONTACT #: [phone] [id number] NoteHNO ID: [id number] Author: ?, ?, ? Service: Care Management Author Type: ? Type: Care Mgt Progress Note Filed: 10/30/2023 11:54 Note Text: CARE MANAGEMENT PROGRESS NOTE SERVICE DATE: 10/30/2023 SERVICE TIME: 1055 LOS: 3 days IMM Follow Up Copy Given: Yes Copy given to:: Patient Method: In Person SIGNATURE: Jessica FAROOQ PATIENT NAME: Cece Hubbard DATE: October 30, 2023 TIME: 11:53 AM PAGER/CONTACT #: [phone] [id number] NoteHNO ID: [id number] Author: ALPA MARTINEZ APRN.TICKET DISPENSER CHANGER Service: Cardiovascular Medicine Author Type: Nurse Practitioner [...] if ok with primary team Alpa Martinez APRN.[facility]03-21-2024 NoteHNO ID: [id number] Author: CHELSEA DIAZ RN Service: Care Management Author Type: Registered Nurse Type: Care Mgt Progress Note Filed: 10/30/2023 11:23 Note Text: CARE MANAGEMENT PROGRESS NOTE SERVICE DATE: 10/30/2023 SERVICE TIME: 11:21 AM LOS: 3 days Post-Acute Discharge Planning Patient Goal(s): General wellness, Be able to go home [place] of [place] Explained: [place] of Choice Given: No Reason Not Given: [...] 30, 2023 TIME: 11:21 AM PAGER/CONTACT #: [phone] [id number] NoteHNO ID: [id number] Author: ATA TOSCANO MD Service: General Internal [...] tab(s) 81 mg ORAL DAILY Given, 10/28 0810/27/23 0106 -- 10/27/23 0100 apixaban 5 mg tab(s) (ELIQUIS) 5 mg ORAL EVERY 12 HOURS Given, 10/28 201210/27/23 0037 -- VTE Prophylaxis: VTE prophylaxis appropriate SIGNATURE: Ata Toscano MD PATIENT NAME: Cece Hubbard DATE: October 29, 2023 TIME: 10:04 PM PAGER/CONTACT #:[facility] [id number] NoteHNO ID: [id number] Author: CHELSEA DIAZ RN Service: Care Management Author Type: Registered Nurse Type: Care Mgt Progress Note Filed: 10/29/2023 15:39 Note Text: CARE MANAGEMENT PROGRESS NOTE SERVICE DATE: 10/29/2023 SERVICE TIME: 3:35 PM LOS: 2 days Post-Acute Discharge Planning Patient Goal(s): General wellness, Be able to go home [place] Explained: [place] of [place] Given: No Reason Not Given: [...] about this. She wishes to establish at [facility]. Nephrology was consulted for rising creatnine, following labs. SIGNATURE: Chelsea Diaz RN PATIENT NAME: Cece Hubbard DATE: October 29, 2023 TIME: 3:35 PM PAGER/CONTACT #: [phone] [id number] NoteHNO ID: [id number] Author: ABILIO ALLRED APRN.CNP Service: General Internal Medicine Author Type: Nurse Practitioner Type: Plan of Care Filed: 10/29/2023 15:49 Note Text: INTERNAL MEDICINE PLAN OF CARE SERVICE DATE: 10/29/2023 SERVICE TIME: 1530 ADMITTING PHYSICIAN: Ata Toscano MD Subjective CHIEF COMPLAINT: SOB NIGHT AND WEEKEND COVERAGE: [facility] COVERAGE: HOUSE PAGER [phone] INTERVAL HISTORY OF PRESENT ILLNESS: Pt seen [...] Of note, she follows with cardiology in [place] but has been seeking care at [facility] for symptomatic MR and evaluation for MVR [...] awaiting results. Request made for OSH Echo ([place]) for Cardiology to evaluate. Losartan on hold [...] which included preparing to see the patient, uvvj-vc-vriz patient care, completing clinical documentation, obtaining and/or reviewing separately obtained history, performing a medically appropriate examination, counseling and educating the patient/family/caregiver, ordering medications, tests, or procedures, communicating with other HCPs (not separately reported), independently interpreting results (not separately reported), communicating results to the patient/family/caregiver, and care coordination (not separately reported). SIGNATURE: Abilio Allred APRN.TICKET DISPENSER CHANGER PATIENT NAME: Cece Hubbard DATE: October 29, 2023 TIME: 3:07 PM PHONE: [phone] [id number] NoteHNO ID: [id number] Author: ATA TOSCANO MD Service: General Internal [...] October 28, 2023 TIME: 10:51 PM PAGER/CONTACT #:[facility] [id number] NoteHNO ID: [id number] Author: BECCA SILVERIO APRN.CNP, DNP Service: Cardiovascular Disease Author Type: Nurse Practitioner Type: Plan of Care Filed: 10/28/2023 14:39 Note Text: No echo details available from [facility]. Images from her VIOLA will be downloaded to [employer]. Discussed with Dr. Covarrubias- will trial lasix 20mg IV x 1 dose today. Repeat labs in the morning. Still waiting on echo to be completed during this hospitalization. Becca Silverio DNP Cardiovascular Medicine [facility]03-19-2024 NoteHNO ID: [id number] Author: BECCA SILVERIO APRN.CNP, DNP Service: Cardiovascular Disease Author Type: Nurse Practitioner [...] weight charted- orders placed. Awaiting echo - data collection technician called by RN. Will attempt to obtain echo imaging from [place]- read available in Care Everywhere. Objective PHYSICAL [...] AF diagnosis about 1 month ago at [place] and started on amiodarone and Eliquis. Admitted for management of persistent SOB since AF diagnosis in setting of known severe MR and HF exacerbation. Labs s/f LAY, flat HSTnT, and elevated BNP. Pt admitted to [facility]. On assessment pt denies SOB, CP, palpitations, [...] 2019 - following w/ Dr. Blunt at [place] - limited echo 10/13/23 - severe MR - working up w/ [place] for OHS but requests transf (more content not included)...[facility] HospitalWlvvmwwd12-83-1140 NoteHNO ID: [id number] Author: MAURI KHAN PA Service: General Internal Medicine Author Type: Physician Acid Conditioning Worker Type: Plan of Care Filed: 10/27/2023 01:03 [...] MR PLAN -cardiology consulted, appreciate assistance -continue COMMERCIAL PLUMBER medications as ordered -Echo -TSH -tele order LAY -of unclear etiology. Euvolemic appearing on exam PLAN -Holding COMMERCIAL PLUMBER losartan, defer to primary day team to resume when appropriate -UA and orthostatic VS ordered for further workup -monitor I/Os I spent a total of 60 minutes on the date of the service which included preparing to see the patient, htxr-lj-iyuy patient care, completing clinical documentation, obtaining and/or reviewing separately obtained history, performing a medically appropriate examination, counseling and educating the patient/family/caregiver, ordering medications, tests, or procedures, and communicating results to the patient/family/caregiver. This note was partially generated using [employer] voice recognition system. There may be some incorrect words, spelling, punctuation that were not noted while reviewing the note before signing. Mauri Khan PA-C 12:19 [facility]03-08-2024 Miscellaneous Notes* Telephone Encounter - Ziyad Gibbons RN - 10/17/2023 7:04 PM EST Spoke to pt's daughter, Barry Church she is the spokes person for p,. She states that pt needs TMVR. Her phone number is [phone] and email [email or web address]. I have sent her the usual TMVR letter. Pt has an upcoming appt with Dr Liz on 01/22/23. I toldher that more than likely this appt will be cancelled. documented in this encounterBrown Memorial Hospital03-05-2024 NoteHNO ID: [id number] Author: MARK PACHECO MD Service: Cardiovascular Medicine Author Type: Fellow Type: Plan of Care Filed: 10/16/2023 11:53 Note Text: Attestation signed by Mark Pacheco MD at 10/16/2023 11:53 AM [facility] STAFF PHYSICIAN NOTE OF PERSONAL INVOLVEMENT IN [...] cardiology follow-up. SIGNATURE: Mark Pacheco MD, MSc, [facility] [place] Hand Date: 10/16/2023 Time: 11:52 AM [facility] CARDI[facility]ASCULAR [facility]ICINE CONSULT NOTE (Template ID [id number]) Cece Hubbard [id number] PRIMARY SERVICE: Emergency Department CONSULTING SERVICE: Cardiovascular [...] Swelling Codeine Vomiting Di (more content not included)...[facility]01-24-2024 NoteUT Cardiology - [facility] Subjective Cece Hubbard is a 78 y.o. year old female patient being seen for follow up VIOLA. C/o extreme tiredness . Denies chest pain, SOB, and palpitations. 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 [...] June 2023 she was admitted to the [facility] with worsening shortness of breath [...] Serina Inhibitors Amlodipine Swell (more content not included)...[facility]12-27-2023 NotePatient: Cece Hubbard Procedure Information Date/Time: 08/06/23 1030 Procedure: TRANSESOPHAGEAL ECHO (VIOLA) Location: [facility] V[facility] Clinical information reviewed: Allergies Meds Physical Exam Airway Mallampati: II TM distance: >3 FB Neck ROM: full Cardiovascular Dental Pulmonary Abdominal Anesthesia Plan ASA 2 other (Moderate sedation) Additional [facility] Note Patient here for follow up [facility] for SOB and chest pain. She was started on isosorbide. She is scheduled for outpatient stress test next week. She denies chest pain. SOB is improving. C/o LE edema which resolves by morning. C/o fatigue. Review of Systems Cardiovascular: Positive for leg swelling. All other systems reviewed and are negative.[facility] 07-08-2023 NoteCardiovascular Medicine [facility] SUBJECTIVE Chief Complaint Patient presents with Fatigue Congestive Heart Failure Edema Shortness of Breath Cece Hubbard is a 78 y.o. female here for hospital follow-up. HPI She started to have feeling of chest congestion around 06/21/2023 (this was similar to how she felt prior to her stent placement) and she presented to [facility]. She states she was having SOB [...] March 2020 she was admitted to the [facility] with worsening shortness of breath. 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 03-28-2023 NoteUT Cardiology - [facility] Subjective Cecemaria e Hubbard is a 78 y.o. 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 [...] mg tablet, TAKE 1 (more content not included)...[facility]03-02-2023 Instructions* Patient Instructions* Franchesca Almeida V, MD [...] so we recommend you come with a local bulk driver. You will then be scheduled for a follow up in approximately one week. If you notice any of the following symptoms of retinal detachment, please call our office at : - Flashes of light - Increased number of floaters or large floaters - Curtains, veils, or spider web pattern over vision [facility] History of Present illness Narrative* Franchesca Almeida V, MD - 10/10/2022 12:24 PM EST The documentation for this note was completed by Samantha Garcia, COA acting as a scribe for Franchesca ALMEIDA [...] patient was offered a surgery/procedure at a [facility] facility. The surgeon/proceduralist and patient have [...] October 10, 2022 12:24 PM * Armando Steve Murphy, OD - 10/10/2022 11:44 AM EST ASSESSMENT/PLAN: [...] 10, 2022 11:45 AM documented [facility] History of Present illness Narrative* Franchesca Almeida [...] 02, 2022 10:44 AM [facility] History of Present illness Narrative* Naila Harrison, [...] 01, 2022 6:05 PM documented [facility] History of Present illness Narrative* CHRISTAL Calles - 04/24/2022 12:46 PM EDT Confirmed Aim: -1.50 OS, [place] OD CHRISTAL Calles April 24, 2022 12:46 PM documented in this encounter[facility]07-28[facility] History of Present illness Narrative* Franchesca Almeida V, MD - 03/07/2022 1:24 PM EDT The documentation for this note was completed by Samantha Alberts COA acting as a scribe for Franchesca ALMEIDA [...] and surgery - [facility] Wilson[facility] Cataract Presurgical Documentation Cataract: [...] patient was offered a surgery/procedure at a [facility] facility. The surgeon/proceduralist and patient have [...] 07, 2022 1:25 PM * Marian Arroyo, OD - 03/07/2022 12:58 PM EDT (H25.813) Combined [...] 07, 2022 12:59 PM documented in [facility] encounter[facility]06-[facility] Miscellaneous Notes* Telephone Encounter - Hernan John - 01/16/2022 9:41 AM EDT Patient has been rescheduled with Dr. Almeida for March 07 in [place] * Telephone Encounter - Hernan John - [...] at Cataract Evaluation with Dr. Almeida in [place] per faxed referral fromDr. Wilson. First attempt 01/11/22. Referral scanned into chart. documented in this encounterBrown [facility] HospitalEvaluation [facility]* Diagnosis Combined forms of age-related cataract of both eyes- Primary Other and combined forms of senile cataract Posterior vitreous detachment of right eye Vitreous degeneration [facility] Diagnosis Combined forms of age-related cataract of both eyes- Primary Other and combined forms of senile cataract [facility]* Diagnosis Combined forms of age-related cataract of both eyes Other and combined forms of senile cataract Combined forms of age-related cataract of both eyes Other and combined forms of senile cataract Combined forms of age-related cataract of both eyes Other and combined forms of senile cataract [facility]* Diagnosis Superficial punctate keratitis of left eye- Primary Pseudophakia Lens replaced by other means Combined forms of age-related cataract of both eyes Other and combined forms of senile cataract [facility]* Diagnosis S/P cataract extraction and insertion of intraocular lens, left- Primary Combined forms of age-related cataract of both eyes Other and combined forms of senile cataract documented in this encounter [facility]Evaluation noteNo assessment information availableVan Wert [facility] Work Phone: Evaluation note* Diagnosis PCO (posterior capsular opacification), bilateral- Primary After-cataract, unspecified Pseudophakia of both eyes Lens replaced by other means Vitreous degeneration, 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 Other retinal disorders [facility] encounter [facility]* Diagnosis Hypertension, unspecified type- Primary Coronary artery disease involving tribe coronary artery of tribe heart, unspecified whether angina present Hyperlipidemia, unspecified hyperlipidemia type documented in this encounter [facility] [place] [facility]* Diagnosis Mitral valve disorder- Primary Mitral valve disorders Other specified symptoms and signs involving the circulatory and respiratory systems Shortness of breath Pre-operative cardiovascular examination Aortic valve disorder Aortic valve disorders Paroxysmal atrial fibrillation (HCC) Atrial fibrillation Atherosclerosis of tribe coronary artery of tribe heart without angina pectoris Hypertension, unspecified type Hyperlipidemia, unspecified hyperlipidemia type Hypothyroidism, unspecified type Chronic kidney disease, unspecified CKD stage Pre-operative cardiovascular examination Aortic valve disorder Aortic valve disorders Paroxysmal atrial fibrillation (HCC) Atrial fibrillation Atherosclerosis of tribe coronary artery of tribe heart without angina pectoris Mitral valve disorder Mitral valve disorders documented in this encounter [facility] [place] [facility]* Diagnosis Pre-operative cardiovascular examination- Primary Shortness of breath Pre-operative cardiovascular examination Aortic valve disorder Aortic valve disorders Paroxysmal atrial fibrillation (HCC) Atrial fibrillation Atherosclerosis of tribe coronary artery of tribe heart without angina pectoris Mitral valve disorder Mitral valve disorders Pre-operative cardiovascular examination Aortic valve disorder Aortic valve disorders Paroxysmal atrial fibrillation (HCC) Atrial fibrillation Atherosclerosis of tribe coronary artery of tribe heart without angina pectoris Mitral valve disorder Mitral valve disorders documented in this encounter [facility] [place] [facility]* Diagnosis Pre-operative cardiovascular examination- Primary Shortness of breath Pre-operative cardiovascular examination Aortic valve disorder Aortic valve disorders Paroxysmal atrial fibrillation (HCC) Atrial fibrillation Atherosclerosis of tribe coronary artery of tribe heart without angina pectoris Mitral valve disorder Mitral valve disorders Pre-operative cardiovascular examination Aortic valve disorder Aortic valve disorders Paroxysmal atrial fibrillation (HCC) Atrial fibrillation Atherosclerosis of tribe coronary artery of tribe heart without angina pectoris Mitral valve disorder Mitral valve disorders documented in this encounter [facility] [place] [facility]* Diagnosis Lung nodules- Primary Other nonspecific abnormal finding of lung field Shortness of breath Pre-operative cardiovascular examination Aortic valve disorder Aortic valve disorders Paroxysmal atrial fibrillation (HCC) Atrial fibrillation Atherosclerosis of tribe coronary artery of tribe heart without angina pectoris Mitral valve disorder Mitral valve disorders Pre-operative cardiovascular examination Aortic valve disorder Aortic valve disorders Paroxysmal atrial fibrillation (HCC) Atrial fibrillation Atherosclerosis of tribe coronary artery of tribe heart without angina pectoris Mitral valve disorder Mitral valve disorders documented in this encounter [facility] [place] [facility]* Diagnosis Coronary artery disease with angina pectoris, unspecified vessel or lesion type, unspecified whether tribe or transplanted heart (HCC)- Primary documented in this encounter [facility] [place] [facility]* Diagnosis Primary hypertension- Primary Unspecified essential hypertension documented in this encounter [facility]* Diagnosis History of PTCA- Primary Postsurgical percutaneous transluminal coronary angioplasty status Paroxysmal atrial fibrillation (Multi) Atrial fibrillation Coronary artery disease, unspecified vessel or lesion type, unspecified whether angina present, unspecified whether tribe or transplanted heart Hyperlipidemia, unspecified hyperlipidemia type Diastolic dysfunction Unspecified heart disease High risk medication use Mitral valve insufficiency, unspecified etiology Aortic valve insufficiency, etiology of cardiac valve disease unspecified Stage 3 chronic kidney disease, unspecified whether stage 3a or 3b CKD (Multi) BMI 30.0-30.9,adult Former smoker Personal history of tobacco use, presenting hazards to health documented in this encounter [facility] Work Phone: Evaluation note* Diagnosis Pre-op evaluation- Primary Preoperative examination, unspecified Cataract of both eyes, unspecified cataract type Depression, unspecified depression type Anxiety Anxiety state, unspecified Gastroesophageal reflux disease, unspecified whether esophagitis present Hypertension, unspecified type Hyperlipidemia, unspecified hyperlipidemia type Coronary artery disease involving tribe coronary artery of tribe heart, unspecified whether angina present SOB (shortness [...] Shortness of breath Coronary artery disease involving tribe heart, unspecified vessel or lesion type, unspecified whether angina present Malaise and fatigue Other malaise and fatigue CAD, multiple vessel Coronary atherosclerosis of unspecified type of vessel, tribe or graft HTN (hypertension) Unspecified essential hypertension Hyperlipidemia Other and unspecified hyperlipidemia CAD (coronary artery disease) Coronary atherosclerosis of unspecified type of vessel, tribe or graft Severe mitral regurgitation Mitral valve disorders Atrial fibrillation (HCC) Atrial fibrillation Anxiety Anxiety state, unspecified Depression Depressive disorder, not elsewhere classified Stage 3 chronic kidney disease (HCC) Chronic heart failure with preserved ejection fraction (HCC) Acid reflux Esophageal reflux Hypothyroidism Unspecified hypothyroidism Coronary artery disease involving tribe coronary artery of tribe heart with other form of angina pectoris (HCC)- Primary Paroxysmal atrial fibrillation (HCC) Atrial fibrillation Chronic anticoagulation Long-term (current) use of anticoagulants [facility]* Diagnosis Encounter for screening mammogram for malignant neoplasm of breast- Primary Vaginal itching Pruritus of genital organs Encounter for gynecological examination without abnormal finding Screening for malignant neoplasm of cervix Screening for malignant neoplasm of the cervix Postmenopausal Asymptomatic postmenopausal status (age-related) (natural) Osteoporosis, post-menopausal (CMS/HCC) Senile osteoporosis Acute vaginitis Unspecified vaginitis and vulvovaginitis documented in this encounter [facility]* Diagnosis Flexural atopic dermatitis- Primary Other atopic dermatitis and related conditions documented in this encounter [facility]* Diagnosis Obesity, Class I, BMI 30-34.9- Primary Coronary artery disease, unspecified vessel or lesion type, unspecified whether angina present, unspecified whether tribe or transplanted heart Diastolic dysfunction Unspecified heart [...] hazards to health documented in this encounter [facility] Work Phone: Evaluation note* Diagnosis Flexural atopic dermatitis- Primary Other atopic dermatitis and related conditions Chronic rhinitis documented in this encounter [facility]* Diagnosis Onset Date Resolution Status Admit Date Acute UTI acute August 28, 2024 6:27pm Heart failure acute August 6:27pm Pleural effusion acute August 28, 2024 6:27pm [facility] Work Phone: Evaluation note* Diagnosis Coronary artery disease, unspecified vessel or lesion type, unspecified whether angina present, unspecified whether tribe or transplanted heart Hyperlipidemia, unspecified hyperlipidemia type documented in this encounter [facility] Work Phone: Evaluation note* Diagnosis Coronary artery disease, unspecified vessel or lesion type, unspecified whether angina present, unspecified whether tribe or transplanted heart- Primary History of PTCA Postsurgical percutaneous transluminal coronary angioplasty status Paroxysmal atrial fibrillation (Multi) Atrial fibrillation Mixed hyperlipidemia Stage 3a chronic kidney disease (Multi) Diastolic dysfunction Unspecified heart disease High risk medication use Pleural effusion Unspecified pleural effusion BMI 30.0-30.9,adult Former smoker Personal history of tobacco use, presenting hazards to health documented in this encounter [facility] Work Phone: Evaluation note* Diagnosis Pre-op evaluation- Primary Preoperative examination, unspecified Cataract of both eyes, unspecified cataract type Depression, unspecified depression type Anxiety Anxiety state, unspecified Gastroesophageal reflux disease, unspecified whether esophagitis present Hypertension, unspecified type Hyperlipidemia, unspecified hyperlipidemia type Coronary artery disease involving tribe coronary artery of tribe heart, unspecified whether angina present SOB (shortness of breath) Shortness of breath Mitral valve insufficiency, unspecified etiology Congestive heart failure, unspecified HF chronicity, unspecified heart failure type (HCC) LAY (acute kidney injury) Acute kidney failure, unspecified LAY (acute kidney injury) Acute kidney failure, unspecified Obesity, Class I, BMI 30-34.9 Obesity, unspecified HOLLY (dyspnea on exertion)- Primary Other dyspnea and respiratory abnormality SOB (shortness of breath) Shortness of breath Coronary artery disease involving tribe heart, unspecified vessel or lesion type, unspecified whether angina present Malaise and fatigue Other malaise and fatigue CAD, multiple vessel Coronary atherosclerosis of unspecified type of vessel, tribe or graft HTN (hypertension) Unspecified essential hypertension Hyperlipidemia Other and unspecified hyperlipidemia CAD (coronary artery disease) Coronary atherosclerosis of unspecified type of vessel, tribe or graft Severe mitral regurgitation Mitral valve disorders Atrial fibrillation (HCC) Atrial fibrillation Anxiety Anxiety state, unspecified Depression Depressive disorder, not elsewhere classified Stage 3 chronic kidney disease (HCC) Chronic heart failure with preserved ejection fraction (HCC) Acid reflux Esophageal reflux Hypothyroidism Unspecified hypothyroidism Nonrheumatic mitral valve regurgitation- Primary Coronary artery disease involving tribe coronary artery of tribe heart with other form of angina pectoris documented in this encounter [facility] [place] [facility]* Diagnosis Coronary artery disease, unspecified vessel or lesion type, unspecified whether angina present, unspecified whether tribe or transplanted heart- Primary Paroxysmal atrial fibrillation [...] I, BMI 30-34.9 documented in this encounter [facility] Work Phone: Evaluation note* Diagnosis Aortic valve insufficiency, etiology of cardiac valve disease unspecified Mitral valve insufficiency, unspecified etiology documented in this encounter [facility] Work Phone: Hospital course Narrative No data available for this section [facility] Additional Instructions Take Keflex as prescribed for periorbital cellulitis. Take Claritin as prescribed for symptoms of allergies. You can apply bacitracin ointment on the eyelid. Follow-up with PCP for recheck next 3 to 5 daysVan [facility] Work Phone: Hospital Discharge instructions Additional Instructions If your symptoms return/worsen or you develop any further concerns or symptoms please see your doctor or return to the emergency department immediately. It is imperative that you go over today's visit and all results with your primary care provider. As discussed please take double your normal furosemide dosing for the next 3 days starting tomorrow. You should have laboratory studies repeated by your primary care provider at the end of the week to ensure kidney function and potassium are appropriate.[facility] Work Phone: Hospital Discharge instructions Additional Instructions Please increase your lasix to 80mg daily x 3 days. Then follow up with your family doctor for recheck.[facility] Work Phone: Progress note No data available for this section [facility] ([facility] Outpatient Procedure (Routine) - Authorized Specialty Diagnoses / Procedures Referred By Contac t Referred To [facility] Diagnoses Hypertension, unspecified type Coronary artery disease involving tribe coronary artery of tribe heart, unspecified whether angina present Hyperlipidemia, unspecified hyperlipidemia type Procedures ECG COMPLETE ECG ROUTINE ECG W/LEAST 12 LDS W/I&R Shravan Buchanan MD [address] [place] [address] [facility] [place] [address] [place] [address] Referral ID Status Reason Start Date Expiration Date Visits Requested Visits Authorized [id number] Authorized Auto-Generat ed Referral 09/16/2023 09/15/2024 1 1 [facility] for referral (narrative)* Outpatient Procedure (Routine) - Pending Review Specialty Diagnoses / Procedures Referred By Contac t Referred To [facility] Diagnoses Shortness of breath Pre-operative cardiovascular examination Aortic valve disorder Paroxysmal atrial fibrillation (HCC) Atherosclerosis of tribe coronary artery of tribe heart without angina pectoris Mitral valve disorder Procedures US LEG VEIN MAP TAMMI VAS LAB DUP-SCAN XTR VEINS COMPLETE BILATERAL STUDY Gaetano Shaw MD [address] [place] [address] [facility] [address] Referral ID Status Reason Start Date Expiration Date Visits Requested Visits Authorized [id number] Pending Review Auto-Generat ed Referral 11/11/2023 11/10/2024 1 1 * Outpatient Procedure (Routine) - Pending Review Specialty Diagnoses / Procedures Referred By Contac t Referred To Contact [facility] Diagnoses Pre-operative cardiovascular examination Aortic valve disorder Paroxysmal atrial fibrillation (HCC) Atherosclerosis of tribe coronary artery of tribe heart without angina pectoris Mitral valve disorder Procedures LUNG DIFFUSION CAPACITY (DLCO) DIFFUSING CAPACITY Gaetano Shaw MD [address] [place] [address] [facility] [place] [address] [place], [place] [id number] Referral ID Status Reason Start Date Expiration Date Visits Requested Visits Authorized [id number] Pending Review Auto-Generat ed Referral 11/11/2023 12/10/2024 1 1 * Outpatient Procedure (Routine) - Pending Review Specialty Diagnoses / Procedures Referred By Contac t Referred To Contact [facility] Diagnoses Pre-operative cardiovascular examination Aortic valve disorder Paroxysmal atrial fibrillation (HCC) Atherosclerosis of tribe coronary artery of tribe heart without angina pectoris Mitral valve disorder Procedures SPIROMETRY BASELINE ONLY SPMTRY W/VC EXPIRATORY JENNA W/[place] [address] [place] [address] [facility] [place] [address] [place] [id number] Referral ID Status Reason Start Date Expiration Date Visits Requested Visits Authorized [id number] Pending Review Auto-Generat ed Referral 11/11/2023 12/10/2024 1 1 * MRI/CT (Routine) - Pending Review Specialty Diagnoses / Procedures Referred By Tony townsend Referred To Contact CT IMAGING Diagnoses Pre-operative cardiovascular examination Aortic valve disorder Paroxysmal atrial fibrillation (HCC) Atherosclerosis of tribe coronary artery of tribe heart without angina pectoris Mitral valve disorder Procedures CT CHEST WO IVCON DIAGNOSTIC COMPUTED TOMOGRAPHY THORAX W/O CNTRST Gaetano Shaw MD [address] [address] [address] [facility] [place] [address] Referral ID Status Reason Start Date Expiration Date Visits Requested Visits Authorized [id number] Pending Review Auto-Generat ed Referral 11/11/2023 12/10/2024 1 1 * Outpatient Procedure (Routine) - Pending Review Specialty Diagnoses / Procedures Referred By Tony townsend Referred To Contact [facility] Diagnoses Other specified symptoms and signs involving the circulatory and respiratory systems Pre-operative cardiovascular examination Aortic valve disorder Paroxysmal atrial fibrillation (HCC) Atherosclerosis of tribe coronary artery of tribe heart without angina pectoris Mitral valve disorder Procedures US CAROTID ARTERIES TAMMI VAS LAB DUPLEX SCAN EXTRACRANIAL [place] [address] [place] [address] [facility] [address] [address] Referral ID Status Reason Start Date Expiration Date Visits Requested Visits Authorized [id number] Pending Review Auto-Generat ed Referral 11/11/2023 11/10/2024 1 1 * Consult, Test, Treat (Routine) - Authorized Specialty Diagnoses / Procedures Referred By Contac t Referred To Contact Cardiac Surg Diagnoses Pre-operative cardiovascular examination Aortic valve disorder Paroxysmal atrial fibrillation (HCC) Atherosclerosis of tribe coronary artery of tribe heart without angina pectoris Mitral valve disorder Procedures CARDIOTHORACIC PREOP EVALUATION OFFICE/OUTPATIENT [facility] 60 MINUTES Gaetano Shaw MD [address] [place] [address] Referral ID Status Reason Start Date Expiration Date Visits Requested Visits Authorized [id number] Authorized PCP Requested Referral 11/11/2023 11/10/2024 1 1 * Consult, Test, Treat (Routine) - Authorized Specialty Diagnoses / Procedures Referred By Gayleac t Referred To Contact Cardiology Diagnoses Pre-operative cardiovascular examination Aortic valve disorder Paroxysmal atrial fibrillation (HCC) Atherosclerosis of tribe coronary artery of tribe heart without angina pectoris Mitral valve disorder Procedures CONSULT TO CARDIOLOGY OFFICE/OUTPATIENT [facility] 60 MINUTES Gaetano Shaw MD [address] [place] [address] Referral ID Status Reason Start Date Expiration Date Visits Requested Visits Authorized [id number] Authorized PCP Requested Referral 11/11/2023 11/10/2024 1 1 [facility] for referral (narrative)* Outpatient Procedure (Routine) - Authorized Specialty Diagnoses / Procedures Referred By Contac t Referred To Contact [facility] Diagnoses Coronary artery disease with angina pectoris, unspecified vessel or lesion type, unspecified whether tribe or transplanted heart (HCC) Procedures ECG COMPLETE ECG ROUTINE ECG W/LEAST 12 LDS W/I&R Snog Tyler MD [address] [place] [address] [facility] [address] [address] Referral ID Status Reason Start Date Expiration Date Visits Requested Visits Authorized [id number] Authorized Auto-Generat ed Referral 12/04/2023 12/03/2024 1 1 [facility] for referral (narrative)* Consultation (Routine) - Authorized Specialty Diagnoses / Procedures Referred By Contac t Referred To Contact Cardiology Diagnoses Paroxysmal atrial fibrillation (Multi) Procedures Follow Up In Cardiology Víctor Wills MD [address] [facility] 2, [address] [place] [address] Víctor Wills MD 703 [facility] 2, [address] [place] [address] Referral ID Status Reason Start Date Expiration Date V isits Requested Visits Authorized [id number] Authorized 01/12/2024 01/11/2025 1 1 * Cardiovascular (Routine) - Authorized Specialty Diagnoses / Procedures Referred By Tony t Referred To Contact Diagnoses Paroxysmal atrial fibrillation (Multi) Procedures ECG 12 Lead Víctor Wills MD 703 [facility] 2, [address] [place] [address] Referral ID Status Reason Start Date Expiration Date V isits Requested Visits Authorized [id number] Authorized 01/12/2024 01/11/2025 1 1 [facility] Work Phone: Rempat for referral (narrative)No reason for referral information [facility]: Rektuj for visit Narrative* Cardiac Stress Testing (Routine) - Authorized Specialty Diagnoses / Procedures Referred By Contac t Referred To Contact Radiology Diagnoses Coronary artery disease, unspecified vessel or lesion type, unspecified whether angina present, unspecified whether tribe or transplanted heart Hyperlipidemia, unspecified hyperlipidemia type Procedures Nuclear Stress Test CHG MYOCARDIAL SPECT MULTIPLE STUDIES Víctor Wills MD 703 [facility] 2, [address] [place] [address] Phone: tel: fax: Referral ID Status Reason Start Date Expiration Date V isits Requested Visits Authorized [id number] Authorized 08/26/2024 08/26/2025 5 5 [facility] Work Phone: Reason for visit Narrative* Cardiac Stress Testing (Routine) - Authorized Specialty Diagnoses / Procedures Referred By Contac t Referred To Contact Radiology Diagnoses Coronary artery disease, unspecified vessel or lesion type, unspecified whether angina present, unspecified whether tribe or transplanted heart Hyperlipidemia, unspecified hyperlipidemia type Procedures Nuclear Stress Test CHG MYOCARDIAL SPECT MULTIPLE STUDIES Víctor Wills MD 703 [facility] 2, [address] [address] Phone: tel: fax: Referral ID Status Reason Start Date Expiration Date V isits Requested Visits Authorized [id number] Authorized 08/26/2024 08/26/2025 5 5 [facility] Work Phone: Reason for visit Narrative* CV Imaging (Routine) - Authorized Specialty Diagnoses / Procedures Referred By Tony t Referred To Contact Cardiology Diagnoses Aortic valve insufficiency, etiology of cardiac valve disease unspecified Mitral valve insufficiency, unspecified etiology Procedures Transthoracic Echo Complete NV ECHO TTHRC R-T 2D W/WOM-MODE COMPL SPEC&COLR D Víctor Wills MD 703 [facility] 2, [address] [address] Phone: tel: fax: Referral ID Status Reason Start Date Expiration Date Visits Requested Visits Authorized [id number] Authorized Perform Procedure 03/07/2025 03/07/2026 1 1 [facility] Work Phone: Summary Purpose Family History [...] Documents on File Type Date Recorded 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 Advance Directive(s) 10/30/2023 12:47 PM Advance Directive(s) 10/27/2023 5:28 PM Date Activated Date Inactivated Comments 10/27/2023 12:37 AM Question Answer Comments Full Code Order Discussed With: Patient Documents on File Type Date Recorded 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 Advance Directive(s) 10/30/2023 12:47 PM [...] 6:27pm Acute systolic heart failure August 6:27pm Chief Complaint Admit Date sob April 17, 2025 10:06am Chief Complaint Admit Date sob April 17, 2025 10:06am sob April 28, 2025 9:45am Health Concerns Active Problems Noted Date Diagnosed Date Interactive Heart Surgery Education 11/11/2023 Active Problems Noted Date Diagnosed Date Interactive Heart Surgery Education 11/11/2023 Active Problems Noted Date Diagnosed Date Interactive Heart Surgery Education 11/11/2023 Additional Source Comments INFORMATION SOURCE (unrecogn ized section and content) DATE CREATED AUTHOR 03/05/2019 [facility] DATE CREATED AUTHOR AUTHOR'S ORGANIZ ATION 03/13/2021 [facility] DATE CREATED AUTHOR AUTHOR'S ORGANIZ ATION 11/18/2022 [facility] DATE CREATED AUTHOR AUTHOR'S ORGANIZ ATION 09/23/2023 [facility] DATE CREATED AUTHOR AUTHOR'S ORGANIZ ATION 11/11/2023 [facility] DATE CREATED AUTHOR AUTHOR'S ORGANIZ ATION 12/13/2023 [facility] DATE CREATED AUTHOR AUTHOR'S ORGANIZ ATION 01/02/2024 [facility] DATE CREATED AUTHOR AUTHOR'S ORGANIZ ATION 08/19/2024 [facility] DATE CREATED AUTHOR AUTHOR'S ORGANIZ ATION 04/15/2025 [facility] DATE CREATED AUTHOR AUTHOR'S ORGANIZ ATION 04/21/2025 [facility] DATE CREATED AUTHOR AUTHOR'S ORGANIZ ATION 05/03/2025 [facility] Source Comments (unrecognize d section and content) In the event this informatio n is protected by the Federal Confidentiality of Alcohol and Drug Abuse Patient Records regulations: The Federal rules restrict any use of the information to criminally investigate or prosecute any alcohol or drug abuse patient.[facility] Hospital[facility] the event this information is protected by the Federal Confidentiality of Alcohol and Drug Abuse Patient Records regulations: The Federal rules restrict any use of the information to criminally investigate or prosecute any alcohol or drug abuse patient.[facility] HospitalIn the event this information is protected by the Federal Confidentiality of Alcohol and Drug Abuse Patient Records regulations: The Federal rules restrict any use of the information to criminally investigate or prosecute any alcohol or drug abuse patient.[facility] HospitalIn the event this information is protected by the Federal Confidentiality of Alcohol and Drug Abuse Patient Records regulations: The Federal rules restrict any use of the information to criminally investigate or prosecute any alcohol or drug abuse patient.[facility] HospitalIn the event this information is protected by the Federal Confidentiality of Alcohol and Drug Abuse Patient Records regulations: The Federal rules restrict any use of the information to criminally investigate or prosecute any alcohol or drug abuse patient.[facility] HospitalIn the event this information is protected by the Federal Confidentiality of Alcohol and Drug Abuse Patient Records regulations: The Federal rules restrict any use of the information to criminally investigate or prosecute any alcohol or drug abuse patient.[facility] HospitalIn the event this information is protected by the Federal Confidentiality of Alcohol and Drug Abuse Patient Records regulations: The Federal rules restrict any use of the information to criminally investigate or prosecute any alcohol or drug abuse patient.[facility] HospitalIn the event this information is protected by the Federal Confidentiality of Alcohol and Drug Abuse Patient Records regulations: The Federal rules restrict any use of the information to criminally investigate or prosecute any alcohol or drug abuse patient.[facility] HospitalIn the event this information is protected by the Federal Confidentiality of Alcohol and Drug Abuse Patient Records regulations: The Federal rules restrict any use of the information to criminally investigate or prosecute any alcohol or drug abuse patient.[facility] HospitalIn the event this information is protected by the Federal Confidentiality of Alcohol and Drug Abuse Patient Records regulations: The Federal rules restrict any use of the information to criminally investigate or prosecute any alcohol or drug abuse patient.[facility] HospitalIn the event this information is protected by the Federal Confidentiality of Alcohol and Drug Abuse Patient Records regulations: The Federal rules restrict any use of the information to criminally investigate or prosecute any alcohol or drug abuse patient.[facility] HospitalIn the event this information is protected by the Federal Confidentiality of Alcohol and Drug Abuse Patient Records regulations: The Federal rules restrict any use of the information to criminally investigate or prosecute any alcohol or drug abuse patient.[facility] HospitalIn the event this information is protected by the Federal Confidentiality of Alcohol and Drug Abuse Patient Records regulations: The Federal rules restrict any use of the information to criminally investigate or prosecute any alcohol or drug abuse patient.[facility] HospitalIn the event this information is protected by the Federal Confidentiality of Alcohol and Drug Abuse Patient Records regulations: The Federal rules restrict any use of the information to criminally investigate or prosecute any alcohol or drug abuse patient.[facility] HospitalIn the event this information is protected by the Federal Confidentiality of Alcohol and Drug Abuse Patient Records regulations: The Federal rules restrict any use of the information to criminally investigate or prosecute any alcohol or drug abuse patient.[facility] HospitalIn the event this information is protected by the Federal Confidentiality of Alcohol and Drug Abuse Patient Records regulations: The Federal rules restrict any use of the information to criminally investigate or prosecute any alcohol or drug abuse patient.[facility] HospitalIn the event this information is protected by the Federal Confidentiality of Alcohol and Drug Abuse Patient Records regulations: The Federal rules restrict any use of the information to criminally investigate or prosecute any alcohol or drug abuse patient.[facility] HospitalIn the event this information is protected by the Federal Confidentiality of Alcohol and Drug Abuse Patient Records regulations: The Federal rules restrict any use of the information to criminally investigate or prosecute any alcohol or drug abuse patient.[facility] HospitalIn the event this information is protected by the Federal Confidentiality of Alcohol and Drug Abuse Patient Records regulations: The Federal rules restrict any use of the information to criminally investigate or prosecute any alcohol or drug abuse patient.[facility] HospitalIn the event this information is protected by the Federal Confidentiality of Alcohol and Drug Abuse Patient Records regulations: The Federal rules restrict any use of the information to criminally investigate or prosecute any alcohol or drug abuse patient.[facility] HospitalIn the event this information is protected by the Federal Confidentiality of Alcohol and Drug Abuse Patient Records regulations: The Federal rules restrict any use of the information to criminally investigate or prosecute any alcohol or drug abuse patient.[facility] HospitalIn the event this information is protected by the Federal Confidentiality of Alcohol and Drug Abuse Patient Records regulations: The Federal rules restrict any use of the information to criminally investigate or prosecute any alcohol or drug abuse patient.[facility] HospitalIn the event this information is protected by the Federal Confidentiality of Alcohol and Drug Abuse Patient Records regulations: The Federal rules restrict any use of the information to criminally investigate or prosecute any alcohol or drug abuse patient.[facility] HospitalIn the event this information is protected by the Federal Confidentiality of Alcohol and Drug Abuse Patient Records regulations: The Federal rules restrict any use of the information to criminally investigate or prosecute any alcohol or drug abuse patient.[facility] HospitalIn the event this information is protected by the Federal Confidentiality of Alcohol and Drug Abuse Patient Records regulations: The Federal rules restrict any use of the information to criminally investigate or prosecute any alcohol or drug abuse patient.[facility] Reason for Visit (unrecogniz ed section and content) Reason Comments Appointment Reason Comments Cataract Evaluation Reason Comments Pre-Op Exam Reason Comments Post-op (Ophthalmology) Left Eye Eye gabriella n 12/10 patient had cataract surgery today Reason Comments Superficial punctate keratitis OS Reason Comments Posterior Capsule Opacification Evaluati on Left eye Reason Comments Insurance Inquiry Reason Comments Referral Information Cardiac Preop Checklist Reason Comments Spirometry Specialty Diagnoses / Procedures Referred By Contac t Referred To Contact Diagnoses SOB (shortness of breath) Procedures EVAL AND TREAT - [facility] [address] [place] [address] Referral ID Status Reason Start Date Expiration Date Visits Re quested Visits Authorized [id number] 1 1 Reason Comments Follow Up Phone Call RC follow up call f irst attempt. Reason Comments Follow Up Phone Call RC follow up call a ll clear. Reason Onset Date Comments Transition Of Care 12/04/2023 TCM Pharmacy- Hospital discharge 12/03/23 Heart Failure 12/04/2023 Reason Comments Follow Up Phone Call f/u all clear Reason Comments Establish Care 12/02/2023 cath and w ith stent Specialty Diagnoses / Procedures Referred By Tony townsend Referred To Contact Diagnoses Paroxysmal atrial fibrillation (Multi) Procedures ECG 12 Lead Víctor Wills MD 703 [facility] 2, [address] [place] [address] Referral ID Status Reason Start Date Expiration Date V isits Requested Visits Authorized [id number] Authorized 01/12/2024 01/11/2025 1 1 Reason Comments paroxysmal A-fib Reason Comments Gynecologic Exam Vaginal Itching Reason Comments Follow-up No surgeries; no hos pital stays. Both eyes are still itchy. Reason Comments Follow-up 6 months Specialty Diagnoses / Procedures Referred By Tony townsend Referred To Contact Cardiology Diagnoses Paroxysmal atrial fibrillation (Multi) Procedures Follow Up In Cardiology Víctor Wills MD 703 [facility] 2, [address] [address] Phone: tel: fax: Víctor Wills MD 703 [facility] 2, [address] [place] [address] Phone: tel: fax: Referral ID Status Reason Start Date Expiration Date V isits Requested Visits Authorized [id number] Authorized 01/12/2024 01/11/2025 1 1 Reason Comments new patient Pt states she is nathaniel gnosed with allergic conjunctivitis. And she wants to know the cause. Reason Comments Hospital Follow-up [facility] 08/30 Specialty Diagnoses / Procedures Referred By Tony townsend Referred To Contact Diagnoses Paroxysmal atrial fibrillation (Multi) High risk medication use Procedures ECG 12 Lead Vcítor Wills MD 703 [facility] 2, [address] [address] Phone: tel: fax: Referral ID Status Reason Start Date Expiration Date V isits Requested Visits Authorized [id number] Authorized 10/04/2024 10/04/2025 1 1 Reason Comments Follow-up [facility] coronary artery disease, c/o fatigue and occasional shortness of breath on exertion. Specialty Diagnoses / Procedures Referred By Contac t Referred To Contact Cardiology Diagnoses Coronary artery disease, unspecified vessel or lesion type, unspecified whether angina present, unspecified whether tribe or transplanted heart Procedures Follow Up In Cardiology Víctor Wills MD [address] [place] [address] 2, [place] [id number] Phone: tel: fax: Víctor Wills MD [address] [place] [address] 2, [address] [address] Phone: tel: fax: Referral ID Status Reason Start Date Expiration Date V isits Requested Visits Authorized [id number] Authorized 07/16/2024 07/16/2025 1 1 Care Teams (unrecognized sec tion and content) Team Status: Active Member Role Status Dates Demarco Newell MD Primary Care Provider Active Team Status: Inactive Member Role Status Dates Demarco Newell MD Primary Care Provider, Referring Pr ovider Active Referral Self Attending Provider Active Senior Support Engineer Relationship Specialty Start Date End Date Demarco Newell MD PCP - General Family Practice 03/30/12 Senior Support Engineer Relationship Specialty Start Date End Date Demarco Newell MD PCP - General Family Practice 03/30/12 Senior Support Engineer Relationship Specialty Start Date End Date Demarco Newell MD PCP - General Family Practice 03/30/12 Senior Support Engineer Relationship Specialty Start Date End Date Demarco Newell MD PCP - General Family Practice 03/30/12 Senior Support Engineer Relationship Specialty Start Date End Date Demarco Newell MD PCP - General Family Medicine 03/30/12 Senior Support Engineer Relationship Specialty Start Date End Date Demarco Newell MD PCP - General Family Medicine 03/30/12 Senior Support Engineer Relationship Specialty Start Date End Date Demarco Newell MD PCP - General Family Medicine 03/30/12 Senior Support Engineer Relationship Specialty Start Date End Date Demarco Newell MD PCP - General Family Medicine 03/30/12 Senior Support Engineer Relationship Specialty Start Date End Date Demarco Newell MD PCP - General Family Medicine 03/30/12 Senior Support Engineer Relationship Specialty Start Date End Date Demarco Newell MD [address] [place] [address] PCP - General Family Medicine 10/31/23 Gaetano Shaw MD [address] [place] [address] Surgeon Cardiac Surg 10/31/23 [place] [address] [address] [place], [place] [phone] [facility] 10/31/23 Senior Support Engineer Relationship Specialty Start Date End Date Demarco Newell MD [address] [place] [address] PCP - General Family Medicine 10/31/23 [place] [address] [place] [address] Surgeon Cardiac Surg 10/31/23 [place] [address] [place], [place] [phone] [facility] 10/31/23 Senior Support Engineer Relationship Specialty Start Date End Date Demarco Newell MD [address] [place] [address] PCP - General Family Medicine 10/31/23 Gaetano Shaw MD [address] [place] [address] Surgeon Cardiac Surg 10/31/23 [place] [address] [address] [place], [place] [id number] [facility] 10/31/23 Senior Support Engineer Relationship Specialty Start Date End Date Demarco Newell MD [address] [place] [address] PCP - General Family Medicine 10/31/23 [place] [address] [place] [address] Surgeon Cardiac Surg 10/31/23 [place] [address] [address] [place], [place] [phone] [facility] 10/31/23 Senior Support Engineer Relationship Specialty Start Date End Date Demarco Newell MD [address] [place] [address] PCP - General Family Medicine 10/31/23 Gaetano Shaw MD [address] [address] Surgeon Cardiac Surg 10/31/23 [place] [address] [place] [address] [facility] 10/31/23 Senior Support Engineer Relationship Specialty Start Date End Date Demarco Newell MD [address] [place] [address] PCP - General Family Medicine 10/31/23 Gaetano Shaw MD [address] [address] Surgeon Cardiac Surg 10/31/23 [place] [address] [place] [address] [facility] 10/31/23 Senior Support Engineer Relationship Specialty Start Date End Date Demarco Newell MD [address] [place] [address] PCP - General Family Medicine 10/31/23 Gaetano Shaw MD [address] [address] Surgeon Cardiac Surg 10/31/23 [place] [address] [place] [address] [facility] 10/31/23 Senior Support Engineer Relationship Specialty Start Date End Date Demarco Newell MD [address] [place], [place] [phone] PCP - General Family Medicine 10/31/23 Gaetano Shaw MD [address] [place] [address] Surgeon Cardiac Surg 10/31/23 [place] [address] [place] [address] [facility] 10/31/23 Barry Whiting [facility] [address] [place] [address] Transitional Care Pharmacist Pharmacy 12/04/23 01/02/24 Senior Support Engineer Relationship Specialty Start Date End Date Demarco Newell MD [address] [place] [address] PCP - General Family Medicine 10/31/23 Gaetano Shaw MD [address] [place] [address] Surgeon Cardiac Surg 10/31/23 [place] [address] [place] [address] [facility] 10/31/23 Barry Whiting [facility] [address] [place], [place] [phone] Transitional Care Pharmacist Pharmacy 12/04/23 01/02/24 Senior Support Engineer Relationship Specialty [place] [address] [place], [place] [phone] PCP - General Family Medicine 10/31/23 Gaetano Shaw MD [address] [address] Surgeon Cardiac Surg 10/31/23 [place] [address] [address] [place], [place] [phone] [facility] 10/31/23 Barry Whiting [facility] [address] [place] [address] Transitional Care Pharmacist Pharmacy 12/04/23 01/02/24 Senior Support Engineer Relationship Specialty Start Date End Date Demarco Newell MD [address] [place] [id number] PCP - General Family Medicine 10/31/23 Gaetano Shaw MD [address] [place] [phone] Surgeon Cardiac Surg 10/31/23 [place] [address] [address] [place], [place] [phone] [facility] 10/31/23 Senior Support Engineer Relationship Specialty Start Date End Date Demarco Newell MD [address] [place] [id number] PCP - General Family Medicine 10/31/23 Gaetano Shaw MD [address] [id number] Surgeon Cardiac Surg 10/31/23 [place] [address] [address] [place], [place] [phone] [facility] 10/31/23 [facility] [address] [place] [address] Transitional Care Pharmacist Pharmacy 12/04/23 01/02/24 Senior Support Engineer Relationship Specialty Start Date End Date Demarco Newell MD [address] [place] [address] PCP - General Family Medicine 10/31/23 Gaetano Shaw MD 9500 [facility] [address] [place] [address] Surgeon Cardiac Surg 10/31/23 [place] [address] [address] [place], [place] [phone] [facility] 10/31/23 [facility] [address] [place] [address] Transitional Care Pharmacist Pharmacy 12/04/23 01/02/24 Senior Support Engineer Relationship Specialty Start Date End Date Demarco Newell MD [address] [place] [address] PCP - General Family Medicine 01/12/24 Team Status: Inactive Member Role Status Dates Demarco Newell MD Primary Care Provider Active Start: January 20, 2024 End: January 20, 2024 Rupert Bird DO Emergency Provider Active Start: January 20, 2024 End: January 20, 2024 Senior Support Engineer Relationship Specialty Start Date End Date Demarco Newell MD [address] [place] [address] PCP - General Family Medicine 10/31/23 Gaetano Shaw MD 9500 [facility] [address] [place] [address] Surgeon Cardiac Surg 10/31/23 [place] [address] [place] [address] [facility] 10/31/23 Barry Whiting [facility] [address] [place] [address] Transitional Care Pharmacist Pharmacy 12/04/23 01/02/24 [place] [address] [address] [place], [place] [phone] [facility] 12/23/23 12/23/23 Senior Support Engineer Relationship Specialty Start Date End Date Demarco Newell MD [address] [place] [address] PCP - General Family Medicine 04/07/24 Senior Support Engineer Relationship Specialty Start Date End Date Demarco Newell MD [address] [place] [address] PCP - General Family Medicine 04/07/24 Senior Support Engineer Relationship Specialty Start Date End Date Demarco Newell MD [address] [place] [address] PCP - General Family Medicine 04/07/24 Senior Support Engineer Relationship Specialty Start Date End Date Demarco Newell MD [address] [place] [address] PCP - General Family Medicine 01/12/24 Senior Support Engineer Relationship Specialty Start Date End Date Demarco Newell MD [address] [place] [address] PCP - General Family Medicine 04/07/24 Senior Support Engineer Relationship Specialty Start Date End Date Demarco Newell MD [address] [place] [address] PCP - General Family Medicine 04/07/24 Senior Support Engineer Relationship Specialty Start Date End Date Demarco Newell MD [address] [place] [address] PCP - General Family Medicine 04/07/24 Team [...] Elton Baron MD Other Provider Active Start: Tonya espinoza 2024 End: August 29, 2024 Víctor Wills MD Other Provider Active Start: August 28, 2024 End: August 29, 2024 Team Status: Active Member Role Status Dates Demarco Newell MD Primary Care Provider Active Start: August 29, 2024 Bernardo uRssell DO Emergency Provider Active Sta rt: August 29, 2024 Lion Shook MD Admit Provider, Other Provider Ac tive Start: August 29, 2024 Elton Baron MD Attending Provider, Other Provider Active Start: August 29, 2024 Víctor Wills MD Other Provider Active Start: August 29, 2024 Senior Support Engineer Relationship Specialty Start Date End Date Demarco Newell MD [address] [place] [address] PCP - General Family Medicine 01/12/24 Senior Support Engineer Relationship Specialty Start Date End Date Demarco Newell MD [address] [place] [address] PCP - General Family Medicine 01/12/24 Senior Support Engineer Relationship Specialty Start Date End Date Demarco Newell MD [address] [place] [address] PCP - General Family Medicine 01/12/24 Senior Support Engineer Relationship Specialty Start Date End Date Demarco Newell MD [address] [place] [address] PCP - General Family Medicine 01/12/24 Senior Support Engineer Relationship Specialty Start Date End Date Demarco Newell MD [address] [place] [address] PCP - General Family Medicine 10/31/23 Gaetano Shaw MD [address] [facility] [address] [place] [address] Surgeon Cardiac Surg 10/31/23 [place] [address] [place] [address] [facility] 10/31/23 [facility] [address] [place] [address] Transitional Care Pharmacist Pharmacy 12/04/23 01/02/24 [place] [address] [place], [place] [id number] [facility] 12/23/23 12/23/23 Senior Support Engineer Relationship Specialty Start Date End Date Demarco Newell MD [facility] [place] [address] PCP - General Family Medicine 01/12/24 Senior Support Engineer Relationship Specialty Start Date End Date Demarco Newell MD [facility] [place] [address] PCP - General Family Medicine 01/12/24 Team Status: Inactive Member Role Status Dates Demarco Newell MD Primary Care Provider Active Start: April 17, 2025 End: April 17, 2025 Kris Blair DO Emergency Provider Active Start: April 17, 2025 End: April 17, 2025 Team Status: Inactive Member Role Status Dates Demarco Newell MD Primary Care Provider Active Start: April 28, 2025 End: April 28, 2025 Geovanna Hardy DO Emergency Provider Active St art: April 28, 2025 End: April 28, 2025 Goals (unrecognized section and content) Goals may [...] BE BASED ON THE PRIMARY CLINICAL RECORDS. [facility] [employer] [facility]. provides no warranty or guarantee of the accuracy or completeness of information in this document.
[2025-05-06 10:33] LABS: Free T3 3.45 pg/mL (2.18-3.98); NT Pro B Type Natriuretic Pept 589.0 pg/mL (<=1800.0); Thyroid Stimulating Hormone 0.895 uIU/mL (0.358-3.740)
== END 2025-05-06 09:26 | disposition home or self-care (01) ==
LOC: LAB 09:29
PROVIDERS: PCP Family Medicine; Visit Provider Family Medicine
DX: R53.83 Other fatigue (principal); I50.30 Unspecified diastolic (congestive) heart failure; I11.0 Hypertensive heart disease with heart failure
CPT/HCPCS: 36415; 83880; 84436; 84443; 84481

== ENCOUNTER 2025-05-11 04:34 | Outpatient (RCR) | payer MEDICARE, OTHER, SELFPAY | END 2025-06-10 23:59 | disposition home or self-care (01) | LOC: MM 04:34 | PROVIDERS: PCP Family Medicine; Visit Provider Internal Medicine | DX: Z51.81 Encounter for therapeutic drug level monitoring (principal); Z79.01 Long term (current) use of anticoagulants; I48.91 Unspecified atrial fibrillation ==

== ENCOUNTER 2025-06-11 11:34 | Outpatient (RCR) | payer MEDICARE, OTHER, SELFPAY | END 2025-07-10 23:59 | disposition home or self-care (01) | LOC: MM 11:34 | PROVIDERS: PCP Family Medicine; Visit Provider Family Medicine | DX: Z51.81 Encounter for therapeutic drug level monitoring (principal); Z79.01 Long term (current) use of anticoagulants ==

== ENCOUNTER 2025-07-11 11:24 | Outpatient (RCR) | payer MEDICARE, OTHER, SELFPAY | END 2025-08-10 12:49 | disposition home or self-care (01) | LOC: MM 11:24 | PROVIDERS: PCP Family Medicine; Visit Provider Internal Medicine | DX: Z51.81 Encounter for therapeutic drug level monitoring (principal); Z79.01 Long term (current) use of anticoagulants ==